=== PATIENT | female | born 1965 | race Caucasian/White ===

== ENCOUNTER 2016-05-19 08:16 | Day surgery (SDC) | payer OTHER ==
[2016-05-14 16:31] VITALS: BMI 28.3
[~2016-05-19 08:16] MED LIST: LACTATED RINGERS 1,000 ML IV SCH; LIDOCAINE 1% 20 ML VIAL (10MG/ML) FOR IV START INTRADERMA PRN
[2016-05-19 09:01] LABS: Glucose,Whole Blood 277 mg/dL (75-99)
[2016-05-19 09:04] VITALS: TEMP 97.6
[2016-05-19] MEDS ORDERED: PROPOFOL 10 MG/ML 20 ML VIAL IV ONE (09:07)
[2016-05-19 09:46] LABS: Glucose,Whole Blood 311 mg/dL (75-99)
[2016-05-19 09:47] VITALS: RESP 18
[2016-05-19] MEDS ORDERED: INSULIN LISPRO (humaLOG) 300 UNIT/3 ML VIAL SQ ONE (09:55)
[2016-05-19 10:21] VITALS: BP 132/68; PULSE 82
[2016-05-19 11:45] LABS: Anisocytosis Slight; Basophils % (A) 1 %; CH 32.6; CHCM 33.8; Eosinophils # (A) 0.1 k/uL (0-0.7); Eosinophils % (A) 2 %; HCT 24.8 % (34.0-46.0); HDW 3.64; HGB 8.3 gm/dL (11.4-16.0); Luc # (Auto) 0.05; Luc % (Auto) 2; Lymphocytes # (A) 0.5 k/uL (1.0-4.8); Lymphocytes % (A) 17 %; MCH 32.5 pg (25.0-35.0); MCHC 33.5 g/dL (31.0-37.0); Macrocytosis Slight; Mean Platelet Volume 8.3; Monocytes # (A) 0.2 k/uL (0-1.0); Monocytes % (A) 6 %; Neutrophils # (A) 2.2 k/uL (1.3-7.7); Neutrophils % (A) 72 %; Poikilocytosis Slight; RBC 2.55 m/uL (3.80-5.40); RDW 17.2 % (11.5-15.5); WBC 3.1 k/uL (3.8-10.6); WBC (Perox) 2.99
--- NOTE | 2016-05-19 20:06 | PCN ---
DATE OF PROCEDURE: 05/29/2016 PROCEDURE: Bone marrow aspiration biopsy. 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 ANESTHESIA: Local with IV sedation. PROCEDURE NOTE: The procedure was explained in detail to the patient in the office. She presented to the outpatient endoscopy suite where IV access and informed consent were obtained. She was then placed in the left lateral decubitus position. The area over both posterior iliac crest was cleaned and prepped with chlorhexidine and sterile draping. IV sedation was initiated. Local anesthesia administered to the right posterior iliac crest with lidocaine. A Jamshidi needle was then inserted and bone marrow aspirate and biopsy obtained. On withdrawal of the needle, hemostasis was easily achieved. Blood loss was minimal and recovery from sedation was satisfactory. She appeared to have tolerated the procedure well without any obvious complications.
[2016-05-20 09:15] LABS: Bone Marrow Cell Count Performed
== END 2016-05-19 10:36 | disposition home or self-care (01) ==
LOC: OR 08:16
PROVIDERS: ATTEND Internal Medicine Hematology & Oncology
DX: D61.818 Other pancytopenia (principal); D72.810 Lymphocytopenia; D69.6 Thrombocytopenia, unspecified; D70.4 Cyclic neutropenia; D64.4 Congenital dyserythropoietic anemia; I12.0 Hypertensive chronic kidney disease with stage 5 chronic kidney disease or end stage renal disease; N18.6 End stage renal disease; E78.5 Hyperlipidemia, unspecified; E11.9 Type 2 diabetes mellitus without complications; K21.9 Gastro-esophageal reflux disease without esophagitis; Z79.4 Long term (current) use of insulin; Z79.899 Other long term (current) drug therapy; Z88.1 Allergy status to other antibiotic agents; Z91.041 Radiographic dye allergy status
CPT/HCPCS: 81025; 84132; 85025; 38221; J2704; G0364; 99153

== ENCOUNTER 2016-05-28 01:52 | Emergency (ER) | payer OTHER ==
[2016-05-28 01:58] VITALS: TEMP 100.3
[2016-05-28] MEDS ORDERED: ACETAMINOPHEN TAB 500 MG TAB PO STA (02:19)
[2016-05-28] MEDS ORDERED: CHLORPHEN-HYDROcod 8-10mg/5ml 5 ML ORAL.SYRG PO STA (02:19)
[2016-05-28] MEDS ORDERED: IPRATROPIUM-ALBUTEROL 3 ML NEB INHALATION STA (02:57)
--- NOTE | 2016-05-28 02:59 | ED ---
URI HPI - General Chief Complaint: Upper Respiratory Infection Stated Complaint: cough,MARILIN Time Seen by Provider: 05/28/16 02:15 Source: patient, RN notes reviewed Mode of arrival: ambulatory Limitations: no limitations - History of Present Illness Initial Comments: 50-year-old female presents emergency Department chief complaint cough and congestion 4 days. Patient states that cough is slightly productive. Patient states that she has had multiple sick exposures at dialysis. Patient states that she's had low-grade fever at home has not taken any medication for it. Patient denies any headache, dizziness, neck stiffness. Denies any sore throat and ear pain. Patient's states that she is nonsmoker has no known lung disease. Patient states that she did have a flu shot this year. - Related Data Home Medications Medication Instructions Recorded Confirmed Atorvastatin [Lipitor] 40 mg PO HS 09/14/15 05/28/16 Cyclobenzaprine [Flexeril] 5 mg PO HS 09/14/15 05/28/16 Magnesium Gluconate [Magonate] 500 mg PO BID 09/14/15 05/28/16 Omeprazole [PriLOSEC] 20 mg PO DAILY 09/14/15 05/28/16 Sulfacetamide 10% Ophth Soln 1 - 2 drop BOTH EYES BID PRN 09/14/15 05/28/16 [Bleph-10] Calcium Carbonate [Tums] 750 mg PO AC-TID 10/29/15 05/28/16 Insulin Aspart [NovoLOG] See Protocol SQ ACHS 10/29/15 05/28/16 Furosemide [Lasix] 40 mg PO BID 03/12/16 05/28/16 Lidocaine 4% Cream [Lmx 4] 1 each TOPICAL WEEKLY 03/12/16 05/28/16 cloNIDine HCL [Catapres] 0.3 mg PO TID 03/12/16 05/28/16 traMADol HCl [Ultram] 50 mg PO TID PRN 03/12/16 05/28/16 Insulin Glargine [Lantus] 70 unit SQ QAM 04/18/16 05/28/16 Calcitriol [Rocaltrol] 0.25 mcg PO WEEKLY 05/14/16 05/28/16 Calcium Acetate [Phoslo] 1,334 mg PO ONCE PRN 05/14/16 05/28/16 Calcium Acetate [Phoslo] 667 mg PO TID 05/14/16 05/28/16 Ergocalciferol (Vitamin D2) 50,000 unit PO SUTUTH 05/14/16 05/28/16 [Drisdol] Iron Infusion 1 dose IV WEEKLY PRN 05/14/16 05/28/16 Prochlorperazine [Compazine] 5 mg PO BID PRN 05/14/16 05/28/16 Prorenal Vitamin 1 tab PO DAILY 05/14/16 05/28/16 amLODIPine [Norvasc] 10 mg PO QAM 05/14/16 05/28/16 Previous Rx's Medication Instructions Recorded Sodium Bicarbonate Tab 650 mg PO BID #60 tab 09/20/15 hydrALAZINE HCL [Apresoline] 50 mg PO TID #90 tab 09/20/15 Albuterol Sulfate [Proair Hfa] 1 - 2 puff INHALATION Q4HR PRN #1 05/28/16 inhaler Azithromycin [Zithromax Z-pack] 0 mg PO DIRECTED #1 pack 05/28/16 Promethaz-Cod 6.25-10 mg/5 ml 5 ml PO Q6HR PRN #120 ml 05/28/16 [Phenergan with Codeine] Allergies Allergy/AdvReac Type Severity Reaction Status Date / Time ciprofloxacin [From Cipro] Allergy AFFECTED Verified 05/19/16 08:39 EYESIGHT ciprofloxacin HCl Allergy AFFECTED Verified 05/19/16 08:39 [From Cipro] EYESIGHT Iodinated Contrast Media - Allergy RENAL Verified 05/19/16 08:39 Oral and FAILURE Review of Systems ROS Statement: Those systems with pertinent positive or pertinent negative responses have been documented in the HPI. ROS Other: All systems not noted in ROS Statement are negative. Past Medical History Past Medical History: Diabetes Mellitus, Hyperlipidemia, Hypertension, Renal Disease Additional Past Medical History / Comment(s): Hypertriglyceridemia-induced acute pancreatitis, necrotizing pancreatitis-sent to [facility], hemodialysis for acute kidney injury 2 months in 2009 after pancreatic surgery, chronic kidney disease, IDDM type II, acute blood loss anemia, R great toe infection-healed, carter's palsey x2, past L leg fx. Hemodialysis on ,, for 4 Hrs. History of Any Multi-Drug Resistant Organisms: None Reported Past Surgical History: Uterine Ablation Additional Past Surgical History / Comment(s): pancreatic resection at [facility] 2009, bone marrow biopsy -negative, D&C,. dialysis chest port removal - November 2015. Left arm shunt placement for dialysis - December 2015 Past Anesthesia/Blood Transfusion Reactions: No Reported Reaction Additional Past Anesthesia/Blood Transfusion Reaction / Comment(s): Pt has received blood without reaction. Past Psychological History: No Psychological Hx Reported Additional Psychological History / Comment(s): Pt resides with spouse and 1 adult manish. She is independent. She uses no assistive device. She drives. Smoking Status: Never smoker Past Alcohol Use History: None Reported Additional Past Alcohol Use History / Comment(s): Patient is a lifelong nonsmoker. She denies any medical marijuana, marijuana, street drug use. She drinks alcohol on a very rare basis. She lives at home with her and 21- year-old daughter. There is a cat and a dog in the home. 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 Past Drug Use History: None Reported - Past Family History Brother(s) Family Medical History: No Reported History Mother Family Medical History: Cancer, Diabetes Mellitus Additional Family Medical History / Comment(s): Mother of throat cancer at the age of 63 yrs. She was a smoker. Father Family Medical History: Coronary Artery Disease (CAD), Hyperlipidemia, Hypertension Additional Family Medical History / Comment(s): Father is 70 yrs old. General Exam Limitations: no limitations General appearance: alert, in no apparent distress Head exam: Present: atraumatic, normocephalic, normal inspection Eye exam: Present: normal appearance, PERRL, EOMI. Absent: scleral icterus, conjunctival injection, periorbital swelling ENT exam: Present: normal exam, normal oropharynx, mucous membranes moist, TM's normal bilaterally, normal external ear exam Neck exam: Present: normal inspection, full ROM. Absent: tenderness, meningismus, lymphadenopathy Respiratory exam: Present: wheezes. Absent: normal lung sounds bilaterally, respiratory distress, rales, rhonchi, stridor Cardiovascular Exam: Present: normal rhythm, tachycardia, normal heart sounds. Absent: systolic murmur, diastolic murmur, rubs, gallop, clicks Neurological exam: Present: alert Skin exam: Present: warm, dry, intact, normal color. Absent: rash Course Vital Signs 01/18/17 01/18/17 01/18/17 01:55 03:03 03:08 Temperature 100.3 F H Pulse Rate 113 H 100 100 Respiratory 18 Rate Blood Pressure 202/87 O2 Sat by Pulse 92 L Oximetry Medical Decision Making - Medical Decision Making 42-year-old female presented emergency Department chief complaint of cough and congestion. Patient chest x-ray shows no acute infiltrate though she does have a low-grade temp and some rhonchi noted. Patient we treated for acute bronchitis this time with azithromycin. She was discharged with Pro Air inhaler and cough medicine. Return parameters were discussed. - Lab Data Lab Results 05/28/16 Range/Units 02:35 Influenza Type A RNA Not Detected (Not Detectd) Influenza Type B (PCR) Not Detected (Not Detectd) Disposition Clinical Impression: Bronchitis, Fever Disposition: HOME SELF-CARE Condition: Stable Instructions: Acute Bronchitis (ED) Additional Instructions: Please return to the Emergency Department if symptoms worsen or any other concerns. Prescriptions: Albuterol Sulfate [Proair Hfa] 1 - 2 puff INHALATION Q4HR PRN #1 inhaler PRN Reason: difficulty in breathing Azithromycin [Zithromax Z-pack] 0 mg PO DIRECTED #1 pack Promethaz-Cod 6.25-10 mg/5 ml [Phenergan with Codeine] 5 ml PO Q6HR PRN #120 ml PRN Reason: Cough Time of Disposition: 03:25
--- NOTE | 2016-05-28 03:02 | XR ---
EXAMINATION TYPE: XR chest 2V DATE OF EXAM: 05/28/2016 2:27 AM COMPARISON: 10/29/2015 HISTORY: Cough and congestion TECHNIQUE: Frontal and lateral views of the chest are obtained. FINDINGS: There is mild pulmonary vascular congestion. No definite focal pneumonia is noted. . The cardiac silhouette size is within normal limits. The osseous structures are intact. IMPRESSION: 1. Mild pulmonary vascular congestion. 2. No focal pneumonia.
[2016-05-28] MEDS ORDERED: AZITHROMYCIN 250 MG TAB PO STA (03:23)
[2016-05-28 04:56] VITALS: BP 208/80; PULSE 70; RESP 16
== END 2016-05-28 03:36 | disposition home or self-care (01) ==
LOC: EC 01:52
DX: J20.9 Acute bronchitis, unspecified (principal); I12.0 Hypertensive chronic kidney disease with stage 5 chronic kidney disease or end stage renal disease; E11.22 Type 2 diabetes mellitus with diabetic chronic kidney disease; N18.6 End stage renal disease; Z99.2 Dependence on renal dialysis; E78.5 Hyperlipidemia, unspecified; E78.1 Pure hyperglyceridemia; Z79.4 Long term (current) use of insulin; Z79.899 Other long term (current) drug therapy; Z88.1 Allergy status to other antibiotic agents; Z91.041 Radiographic dye allergy status
CPT/HCPCS: 71020; 87502; 94640; 99284

== ENCOUNTER 2016-06-05 09:46 | Inpatient (IN) | payer OTHER ==
[2016-06-05] MEDS ORDERED: hydrALAZINE HCL 20 MG/ML 1 ML VIAL IVP STA ×2 (09:56→13:22)
--- NOTE | 2016-06-05 09:59 | ED ---
General Adult HPI - General Stated complaint: MARILIN Time Seen by Provider: 06/05/16 09:50 Source: RN notes reviewed - History of Present Illness Initial comments: This is a 50-year-old female who has past medical history significant for renal failure and is on hemodialysis. Patient states she went to hemodialysis this morning and because her heart rate was too fast and blood pressure was elevated they sent into the emergency department without being dialyzed. Patient was found to have an increased potassium some heart failure and was anemic and since that facility does not have any dialysis capabilities is sent the patient to me. Patient does complain of feeling short of breath and coughing all night long. Patient denies any chest pain or palpitations. Patient denies abdominal pain patient denies nausea vomiting diarrhea. Patient denies any recent fever or chills. According to the other ER they did give the patient insulin and D50 they also gave the patient some Kayexalate. The ER doctor also stated that the patient infiltrates on x-ray. He said he started the patient on antibiotics - Related Data Home Medications Medication Instructions Recorded Confirmed Atorvastatin [Lipitor] 40 mg PO HS 09/14/15 06/05/16 Cyclobenzaprine [Flexeril] 5 mg PO HS 09/14/15 06/05/16 Magnesium Gluconate [Magonate] 500 mg PO BID 09/14/15 06/05/16 Omeprazole [PriLOSEC] 20 mg PO DAILY 09/14/15 06/05/16 Sulfacetamide 10% Ophth Soln 1 - 2 drop BOTH EYES BID PRN 09/14/15 06/05/16 [Bleph-10] Calcium Carbonate [Tums] 1,500 mg PO AC-TID 10/29/15 06/05/16 Furosemide [Lasix] 40 mg PO BID 03/12/16 06/05/16 Lidocaine 4% Cream [Lmx 4] 1 applic TOPICAL TUTHSA 03/12/16 06/05/16 cloNIDine HCL [Catapres] 0.3 mg PO TID 03/12/16 06/05/16 traMADol HCl [Ultram] 50 mg PO TID PRN 03/12/16 06/05/16 Insulin Glargine [Lantus] 70 unit SQ QAM 04/18/16 06/05/16 Calcitriol [Rocaltrol] 0.25 mcg PO WEEKLY 05/14/16 06/05/16 Calcium Acetate [Phoslo] 1,334 mg PO DIRECTED PRN 05/14/16 06/05/16 Calcium Acetate [Phoslo] 667 mg PO TID 05/14/16 06/05/16 Ergocalciferol (Vitamin D2) 50,000 unit PO SUTUTH 05/14/16 06/05/16 [Drisdol] Iron Infusion 1 dose IV WEEKLY PRN 05/14/16 06/05/16 Prochlorperazine [Compazine] 5 mg PO BID PRN 05/14/16 06/05/16 Prorenal Vitamin 1 tab PO DAILY 05/14/16 06/05/16 amLODIPine [Norvasc] 10 mg PO QAM 05/14/16 06/05/16 Albuterol Sulfate [Proair Hfa] 2 puff INHALATION RT-Q4H PRN 06/05/16 06/05/16 Insulin NPL/Insulin Lispro 16 unit SQ AC-TID 06/05/16 06/05/16 [humaLOG MIX 75-25 VIAL] Previous Rx's Medication Instructions Recorded Sodium Bicarbonate Tab 650 mg PO BID #60 tab 09/20/15 hydrALAZINE HCL [Apresoline] 50 mg PO TID #90 tab 09/20/15 Allergies Allergy/AdvReac Type Severity Reaction Status Date / Time ciprofloxacin [From Cipro] Allergy AFFECTED Verified 06/05/16 10:51 EYESIGHT ciprofloxacin HCl Allergy AFFECTED Verified 06/05/16 10:51 [From Cipro] EYESIGHT Iodinated Contrast Media - Allergy RENAL Verified 06/05/16 10:51 Oral and FAILURE Review of Systems ROS Statement: Those systems with pertinent positive or pertinent negative responses have been documented in the HPI. ROS Other: All systems not noted in ROS Statement are negative. Past Medical History Past Medical History: Diabetes Mellitus, Hyperlipidemia, Hypertension, Renal Disease Additional Past Medical History / Comment(s): Hypertriglyceridemia-induced acute pancreatitis, necrotizing pancreatitis-sent to [facility], hemodialysis for acute kidney injury 2 months in 2009 after pancreatic surgery, chronic kidney disease, IDDM type II, acute blood loss anemia, R great toe infection-healed, carter's palsey x2, past L leg fx. Hemodialysis on , for 4 Hrs. History of Any Multi-Drug Resistant Organisms: None Reported Past Surgical History: Uterine Ablation Additional Past Surgical History / Comment(s): pancreatic resection at [facility] 2009, bone marrow biopsy -negative, D&C,. dialysis chest port removal - November 2015. Left arm shunt placement for dialysis - December 2015 Past Anesthesia/Blood Transfusion Reactions: No Reported Reaction Additional Past Anesthesia/Blood Transfusion Reaction / Comment(s): Pt has received blood without reaction. Past Psychological History: No Psychological Hx Reported Additional Psychological History / Comment(s): Pt resides with spouse and 1 adult manish. She is independent. She uses no assistive device. She drives. Smoking Status: Never smoker Past Alcohol Use History: None Reported Additional Past Alcohol Use History / Comment(s): Patient is a lifelong nonsmoker. She denies any medical marijuana, marijuana, street drug use. She drinks alcohol on a very rare basis. She lives at home with her and 21- year-old daughter. There is a cat and a dog in the home. 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 Past Drug Use History: None Reported - Past Family History Brother(s) Family Medical History: No Reported History Mother Family Medical History: Cancer, Diabetes Mellitus Additional Family Medical History / Comment(s): Mother of throat cancer at the age of 63 yrs. She was a smoker. Father Family Medical History: Coronary Artery Disease (CAD), Hyperlipidemia, Hypertension Additional Family Medical History / Comment(s): Father is 70 yrs old. General Exam - General Exam Comments Initial Comments: GENERAL: Patient is well-developed and well-nourished. Patient is nontoxic and well- hydrated and is in no acute distress. ENT: Neck is soft and supple. No significant lymphadenopathy is noted. Oropharynx is clear. Moist mucous membranes. Neck has full range of motion without eliciting any pain. EYES: The sclera were anicteric and conjunctiva were pink and moist. Extraocular movements were intact and pupils were equal round and reactive to light. Eyelids were unremarkable. PULMONARY: He has crackles bilateral bases CARDIOVASCULAR: Patient is tachycardic ABDOMEN: Soft and nontender with normal bowel sounds. No palpable organomegaly was noted. There is no palpable pulsatile mass. SKIN: Skin is clear with no lesions or rashes and otherwise unremarkable. NEUROLOGIC: Patient is alert and oriented x3. Cranial nerves II through XII are grossly intact. Motor and sensory are also intact. Normal speech, volume and content. Symmetrical smile. MUSCULOSKELETAL: Normal extremities with adequate strength and full range of motion. LYMPHATICS: No significant lymphadenopathy is noted PSYCHIATRIC: Normal psychiatric evaluation. Course Vital Signs 06/05/16 06/05/16 10:04 10:10 Temperature 99.0 F Pulse Rate 99 Respiratory 20 20 Rate Blood Pressure 201/90 O2 Sat by Pulse 94 L Oximetry Medical Decision Making - Medical Decision Making Patient has pulmonary edema and did not get dialysis this morning also her potassium was 7.1 and hemoglobin was 7.3. I spoke with Dr. Jones he is sitting up arrangements for the patient to get dialyzed. I spoke with Dr. Bragg he accepted admission I wrote admission orders. - Lab Data Result diagrams: 06/05/16 10:18 06/05/16 10:18 Lab Results 06/05/16 06/05/16 06/05/16 Range/Units 10:18 10:18 10:18 WBC 4.1 (3.8-10.6) k/uL RBC 2.20 L (3.80-5.40) m/uL Hgb 7.3 L (11.4-16.0) gm/dL Hct 21.5 L (34.0-46.0) % MCV 97.7 (80.0-100.0) fL MCH 33.0 (25.0-35.0) pg MCHC 33.7 (31.0-37.0) g/dL RDW 21.3 H (11.5-15.5) % Plt Count 151 (150-450) k/uL Neutrophils % 89 % Lymphocytes % 6 % Monocytes % 3 % Eosinophils % 1 % Basophils % 1 % Neutrophils # 3.6 (1.3-7.7) k/uL Lymphocytes # 0.3 L (1.0-4.8) k/uL Monocytes # 0.1 (0-1.0) k/uL Eosinophils # 0.0 (0-0.7) k/uL Basophils # 0.0 (0-0.2) k/uL Hypochromasia Slight Poikilocytosis Moderate Anisocytosis Moderate Macrocytosis Slight Sodium 135 L (137-145) mmol/L Potassium 7.1 H* (3.5-5.1) mmol/L Chloride 98 (98-107) mmol/L Carbon Dioxide 23 (22-30) mmol/L Anion Gap 14 mmol/L BUN 49 H (7-17) mg/dL Creatinine 5.78 H* (0.52-1.04) mg/dL Est GFR (MDRD) Af Amer 9 (>60 ml/min/1.73 sqM) Est GFR (MDRD) Non-Af 8 (>60 ml/min/1.73 sqM) Glucose 253 H (74-99) mg/dL Plasma Lactic Acid Micha 1.4 (0.7-2.0) mmol/L Calcium 8.6 (8.4-10.2) mg/dL Total Bilirubin 1.1 (0.2-1.3) mg/dL AST 87 H (14-36) U/L ALT 140 H (9-52) U/L Alkaline Phosphatase 206 H (38-126) U/L Total Protein 6.8 (6.3-8.2) g/dL Albumin 3.8 (3.5-5.0) g/dL Disposition Clinical Impression: Pulmonary edema, Admission for dialysis, Anemia Disposition: ADMITTED IP TO THIS HOSP Referrals: David Bragg MD [Primary Care Provider] - 1-2 days Time of Disposition: 12:04
[2016-06-05 10:30] LABS: Anisocytosis Moderate; Basophils % (A) 1 %; CH 32.4; CHCM 33.4; Eosinophils % (A) 1 %; HCT 21.5 % (34.0-46.0); HDW 4.32; HGB 7.3 gm/dL (11.4-16.0); Hypochromasia Slight; Luc # (Auto) 0.04; Luc % (Auto) 1; Lymphocytes # (A) 0.3 k/uL (1.0-4.8); Lymphocytes % (A) 6 %; MCHC 33.7 g/dL (31.0-37.0); MCV 97.7 fL (80.0-100.0); Macrocytosis Slight; Mean Platelet Volume 7.3; Monocytes # (A) 0.1 k/uL (0-1.0); Monocytes % (A) 3 %; Neutrophils # (A) 3.6 k/uL (1.3-7.7); Neutrophils % (A) 89 %; Poikilocytosis Moderate; RDW 21.3 % (11.5-15.5); WBC 4.1 k/uL (3.8-10.6); WBC (Perox) 4.32
[2016-06-05 10:43] LABS: Calcium 8.6 mg/dL (8.4-10.2); Total Bilirubin 1.1 mg/dL (0.2-1.3); Total Protein 6.8 g/dL (6.3-8.2)
[2016-06-05 10:55] LABS: Potassium 7.1 mmol/L (3.5-5.1)
[2016-06-05 15:22] LABS: Glucose,Whole Blood 160 mg/dL (75-99)
[2016-06-05] MEDS ORDERED: hydrALAZINE HCL 20 MG/ML 1 ML VIAL IVP ONE (15:29)
[2016-06-05] MEDS ORDERED: PROCHLORPERAZINE 5 MG TAB PO PRN (16:28)
[2016-06-05] MEDS ORDERED: IRON INFUSION IV PRN (16:28)
[2016-06-05] MEDS ORDERED: SULFACETAMIDE SOD 10% OPHTH DROPS 15 ML BTL BOTH EYES PRN (16:28)
[2016-06-05] MEDS ORDERED: ALBUTEROL NEBULIZED 2.5 MG/3 ML INHALATION PRN (16:28)
[2016-06-05 16:45] LABS: Glucose,Whole Blood 190 mg/dL (75-99)
[2016-06-05] MEDS: traMADol 50 MG TAB PO PRN (17:30)
[2016-06-05] MEDS ORDERED: cefTRIAXone 1,000 MG VIAL (IM USE) IM SCH (18:30)
[2016-06-05] MEDS: INSULIN NPL/INSULIN LISPRO 100 UNIT/ML 10 ML VIAL (Humalog 75/25) SQ SCH ×2 (18:37→20:45)
[2016-06-05] MEDS: CALCIUM CARBONATE 500 MG CHEWABLE PO SCH (18:39)
[2016-06-05] MEDS: CALCIUM ACETATE 667 MG CAP PO SCH (18:39)
[2016-06-05] MEDS: LIDOCAINE 4% CREAM 5 GM TUBE TOPICAL SCH (18:40)
[2016-06-05] MEDS ORDERED: GELATIN SPONGE,ABSORB (SMALL) 1 EACH SPONGE ONE (20:00)
[2016-06-05] MEDS: HYDROmorphone 1 MG/ML 1 ML SYRINGE IVP PRN ×2 (20:15→23:44)
[2016-06-05] MEDS: SODIUM BICARBONATE TAB 650 MG TAB PO SCH (20:18)
[2016-06-05] MEDS: CYCLOBENZAPRINE 5 MG TAB PO SCH (20:19)
[2016-06-05] MEDS: hydrALAZINE HCL 50 MG TAB PO SCH (20:19)
[2016-06-05] MEDS: ATORVASTATIN 40 MG TAB PO SCH (20:19)
[2016-06-05] MEDS: cloNIDine HCL 0.1 MG TAB PO SCH (20:19)
[2016-06-05 20:52] LABS: Glucose,Whole Blood 287 mg/dL (75-99)
[2016-06-05] MEDS ORDERED: MAGNESIUM OXIDE 250 MG TAB PO SCH (21:00)
--- NOTE | 2016-06-05 21:44 | HP ---
DATE OF ADMISSION: 06/05/2015 CHIEF COMPLAINT: A 50-year-old white female with past medical history renal failure on hemodialysis, her heart rate was too fast. Her blood pressure was elevated and they sent her to the emergency room without being dialyzed and hypertension acceleration in the 220 range. She has had bloody hemoptysis since then and increased potassium and some heart failure versus pneumonia and was anemic with a hemoglobin in mid 7s. She has been short of breath, coughing up blood all night. She had CT scan of chest up at [place] and we are trying to get the report at this time. She was given some Kayexalate and insulin and D50 to get her potassium down. Started her on antibiotics for possible pneumonia. Home medications include: 1. Lipitor 40 daily. 2. Flexeril 5 mg q.h.s. 3. Magnesium gluconate 500 mg b.i.d. 4. Prilosec 20 daily. 5. Sulfacetamide ophthalmologic solution 1 to 2 drops both eyes b.i.d. 6. ( ) 1500 a.c. t.i.d. 7. Lasix 40 mg b.i.d. 8. Clonidine 0.3 mg t.i.d. 9. Tramadol 50 mg t.i.d. 10. Lantus 70 units q.a.m. 11. Rocaltrol 0.25 mcg weekly. 12. PhosLo 667 mg t.i.d. to 1334 mg p.r.n. 13. Vitamin D 50,000 weekly. 14. Iron infusion weekly. 15. Compazine 5 mg b.i.d. 16. Prerenal vitamins 1 tablet daily. 17. Amlodipine 10 mg daily. 18. Albuterol 2 puffs q.4 hours p.r.n. 19. Humalog mix 15 units subcu a.c. t.i.d. ALLERGIES: CIPRO. IODINE. REVIEW OF SYSTEMS: Please see HPI. 14 point review of systems negative except for as mentioned above. Past medical history is renal failure. End-stage recent dialysis in the past 6 months, diabetes mellitus, dyslipidemia, hypertension, necrotizing pancreatitis history, Hoffman's palsy x2 and insulin-dependent diabetes mellitus, type II, ( ) right great toe infection, uterine ablation and bone marrow biopsies. SOCIAL HISTORY: Nonsmoker. No alcohol. Lifelong nonsmoker. FAMILY HISTORY: Negative. Mother has cancer, diabetes mellitus. Mother of throat at age 63 smoker. Father had coronary disease, dyslipidemia, hypertension. PHYSICAL EXAMINATION: Well-developed, well-nourished white female in no acute distress. ENT: Extraocular movements intact. ( ) Within normal limits. Ophthalmologic: Pupils equal, round, react to light and accommodation. PULMONARY: Has crackles at the bases. CARDIOVASCULAR: Tachycardic. ABDOMEN: Soft, nontender. SKIN: Warm and dry. NEUROLOGIC: Cranial nerves are intact. MUSCULOSKELETAL: Range of motion fair. LYMPHS: There is no significant lymphadenopathy. PSYCHIATRIC: Fair mood and affect. Temperature is 99, pulse rate is in the high 90s, respiratory rate 18 to 20, 94% on room air. Hemoglobin 7.3, ( ) is 135, potassium of 7.1, BUN 49, creatinine 5.78, sodium 135, potassium 7.1. ASSESSMENT: 1. Acute pulmonary ( ) on admission for dialysis. 2. Severe hyperkalemia secondary to renal failure. 3. Severe anemia secondary to renal failure. 4. Possible pneumonia versus congestive heart failure due to fluid overload. 5. Hemoptysis, unclear etiology. We will do PT, INR, will do BNP to rule out heart failure. Dr. Bobby will be consulted for pulmonary care. Empiric antibiotics will be started, potassium will be addressed by renal physician and in the ER ( ) to be monitored. Please see further orders on the chart.
[2016-06-05] MEDS: SODIUM FERRIC GLUCONAT-SUCROSE 125 MG in SODIUM CHLORIDE 0.9% 100 ML IVPB SCH (22:15)
[2016-06-05] MEDS: AZITHROMYCIN 500 MG in SODIUM CHLORIDE 0.9% 250 ML IVPB SCH (23:35)
[2016-06-06] MEDS: PROMETHAZINE 6.25MG/5ML 147.5 MG/118 ML BOTTLE PO PRN ×4 (01:20→23:02)
[2016-06-06] MEDS: HYDROmorphone 1 MG/ML 1 ML SYRINGE IVP PRN ×4 (04:21→22:34)
[2016-06-06] MEDS: CALCIUM CARBONATE 500 MG CHEWABLE PO SCH ×3 (06:26→17:31)
[2016-06-06] MEDS: CALCIUM ACETATE 667 MG CAP PO SCH ×3 (06:31→17:32)
[2016-06-06] MEDS: PANTOPRAZOLE 40 MG TABLET PO SCH (06:31)
[2016-06-06 06:53] LABS: Anisocytosis Moderate; Basophils % (A) 1 %; CHCM 32.6; Eosinophils % (A) 0 %; Hypochromasia Moderate; Luc # (Auto) 0.03; Luc % (Auto) 1; Lymphocytes # (A) 0.3 k/uL (1.0-4.8); Lymphocytes % (A) 8 %; MCH 33.3 pg (25.0-35.0); MCHC 33.6 g/dL (31.0-37.0); MCV 99.3 fL (80.0-100.0); Macrocytosis Slight; Mean Platelet Volume 7.7; Monocytes # (A) 0.2 k/uL (0-1.0); Monocytes % (A) 6 %; Neutrophils % (A) 84 %; Poikilocytosis Moderate; RBC 2.01 m/uL (3.80-5.40); WBC 3.6 k/uL (3.8-10.6)
[2016-06-06 07:09] LABS: Calcium 8.3 mg/dL (8.4-10.2); Potassium 5.6 mmol/L (3.5-5.1); Total Bilirubin 1.2 mg/dL (0.2-1.3); Total Protein 6.3 g/dL (6.3-8.2)
[2016-06-06] MEDS: INSULIN NPL/INSULIN LISPRO 100 UNIT/ML 10 ML VIAL (Humalog 75/25) SQ SCH ×3 (07:26→17:33)
[2016-06-06 07:37] LABS: HCT 19.9 % (34.0-46.0); HGB 6.7 gm/dL (11.4-16.0)
--- NOTE | 2016-06-06 08:05 | P.NPCON ---
History of Present Illness - Reason for Consult end stage renal disease - History of Present Illness Reason for consultation: End-stage renal disease History of present illness: Patient is a 50-year-old female seen in renal consultation for end- stage renal disease. She is maintained on hemodialysis on a Thursday schedule. Patient presented to the hospital after she noticed increase in her heart rate as well as systolic blood pressure greater than 200 when she was at the dialysis center. She was subsequently sent to the hospital for further care. Her potassium was elevated at 7.1 and she did undergo urgent hemodialysis last night. Potassium this morning is 5.6. She's also been having symptoms of upper respiratory infection and has just completed course of Z-Travis earlier this week. She also noticed hemoptysis which is now improved. She denies any chest pain or shortness of breath. She was also noted to have anemia for which she has undergone bone marrow biopsy earlier this month. She' s been receiving multiple packed red blood cell transfusions as an outpatient. Her hemoglobin this morning is again 6.7. Appetite is fair. Denies vomiting. Does have intermittent diarrhea. Denies any melena or hematochezia. Did have some epistaxis. Vital signs are stable. General: The patient appeared well nourished and normally developed. HEENT: Head exam is unremarkable. Neck is without jugular venous distension. LUNGS: Lungs are clear to auscultation and percussion. Breath sounds decreased. HEART: Rate and Rhythm are regular. First and second heart sounds normal. No murmurs, rubs or gallops. ABDOMEN: Abdominal exam reveals normal bowel sounds. Non-tender and non- distended. No evidence of peritonitis. EXTREMITITES: No clubbing, cyanosis, or edema. Past Medical History Past Medical History: Diabetes Mellitus, Hyperlipidemia, Hypertension, Renal Disease Additional Past Medical History / Comment(s): Recent bronchitis-completed ABX, hypertriglyceridemia-induced acute pancreatitis, necrotizing pancreatitis-sent [facility], hemodialysis for acute kidney injury 2 months in 2009 after pancreatic surgery, 11/2015 diagnosed with chronic kidney disease-hemodialysis //, IDDM type II, chronic anemia, occasional back pain, carter's palsey x2, past L leg fx. History of Any Multi-Drug Resistant Organisms: None Reported Past Surgical History: Uterine Ablation Additional Past Surgical History / Comment(s): pancreatic resection at [facility] 2009, bone marrow biopsies-last one 05/19/16,. dialysis chest port x 2 with removals, Left arm shunt placement for dialysis - December 2015 Past Anesthesia/Blood Transfusion Reactions: No Reported Reaction Additional Past Anesthesia/Blood Transfusion Reaction / Comment(s): Pt has received blood transfusions without reaction-last transfusion 06/04/16. Past Psychological History: No Psychological Hx Reported Additional Psychological History / Comment(s): Pt resides with spouse and 1 adult manish. She is independent. She uses no assistive device. She drives. Smoking Status: Never smoker Past Alcohol Use History: None Reported Additional Past Alcohol Use History / Comment(s): Patient is a lifelong nonsmoker. She denies any medical marijuana, marijuana, street drug use. She drinks alcohol on a very rare basis. She lives at home with her and 21- year-old daughter. There is a cat in the home. 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 Past Drug Use History: None Reported - Past Family History Brother(s) Family Medical History: No Reported History Mother Family Medical History: Cancer, Diabetes Mellitus Additional Family Medical History / Comment(s): Mother of throat cancer at the age of 63 yrs. She was a smoker. Father Family Medical History: Coronary Artery Disease (CAD), Hyperlipidemia, Hypertension Additional Family Medical History / Comment(s): Father is 70 yrs old. Medications and Allergies Home Medications Medication Instructions Recorded Confirmed Type Atorvastatin [Lipitor] 40 mg PO HS 09/14/15 06/05/16 History Cyclobenzaprine [Flexeril] 5 mg PO HS 09/14/15 06/05/16 History Magnesium Gluconate [Magonate] 500 mg PO BID 09/14/15 06/05/16 History Omeprazole [PriLOSEC] 20 mg PO DAILY 09/14/15 06/05/16 History Sulfacetamide 10% Ophth Soln 1 - 2 drop BOTH EYES BID PRN 09/14/15 06/05/16 History [Bleph-10] Calcium Carbonate [Tums] 1,500 mg PO AC-TID 10/29/15 06/05/16 History Furosemide [Lasix] 40 mg PO BID 03/12/16 06/05/16 History Lidocaine 4% Cream [Lmx 4] 1 applic TOPICAL TUTHSA 03/12/16 06/05/16 History cloNIDine HCL [Catapres] 0.3 mg PO TID 03/12/16 06/05/16 History traMADol HCl [Ultram] 50 mg PO TID PRN 03/12/16 06/05/16 History Insulin Glargine [Lantus] 70 unit SQ QAM 04/18/16 06/05/16 History Calcitriol [Rocaltrol] 0.25 mcg PO WEEKLY 05/14/16 06/05/16 History Calcium Acetate [Phoslo] 1,334 mg PO DIRECTED PRN 05/14/16 06/05/16 History Calcium Acetate [Phoslo] 667 mg PO TID 05/14/16 06/05/16 History Ergocalciferol (Vitamin D2) 50,000 unit PO SUTUTH 05/14/16 06/05/16 History [Drisdol] Iron Infusion 1 dose IV WEEKLY PRN 05/14/16 06/05/16 History Prochlorperazine [Compazine] 5 mg PO BID PRN 05/14/16 06/05/16 History Prorenal Vitamin 1 tab PO DAILY 05/14/16 06/05/16 History amLODIPine [Norvasc] 10 mg PO QAM 05/14/16 06/05/16 History Albuterol Sulfate [Proair Hfa] 2 puff INHALATION RT-Q4H PRN 06/05/16 06/05/16 History Insulin NPL/Insulin Lispro 16 unit SQ AC-TID 06/05/16 06/05/16 History [humaLOG MIX 75-25 VIAL] Allergies Allergy/AdvReac Type Severity Reaction Status Date / Time ciprofloxacin [From Cipro] Allergy AFFECTED Verified 06/05/16 10:51 EYESIGHT ciprofloxacin HCl Allergy AFFECTED Verified 06/05/16 10:51 [From Cipro] EYESIGHT Iodinated Contrast Media - Allergy RENAL Verified 06/05/16 10:51 Oral and FAILURE Physical Exam Vitals: Vital Signs Temp Pulse Pulse Resp BP BP Pulse Ox 06/06/16 04:00 98 F 100 18 166/83 95 06/06/16 00:00 99.5 F 105 H 18 167/84 94 L 06/05/16 21:30 100.6 F H 06/05/16 20:00 99.1 F 111 H 18 147/72 98 06/05/16 16:00 98.4 F 169 H 20 216/81 97 06/05/16 15:59 98.6 F 108 H 24 198/87 96 06/05/16 14:26 105 H 20 195/88 95 Intake and Output 06/05/16 06/06/16 06/06/16 22:59 06:59 14:59 Intake Total 600 570 Output Total 0 100 Balance 600 470 Intake: IV 570 Azithromycin 500 mg In 250 Sodium Chloride 0.9% 250 ml @ 125 mls/hr IVPB DAILY@1900 [facility] Rx#: [id number] NS 120 Sodium Ferric Gluconat- 100 Sucrose 125 mg In Sodium Chloride 0.9% 100 ml @ 100 mls/hr IVPB DAILY@ 1800 [facility] Rx#:[id number] cefTRIAXone 1,000 mg In 100 Sodium Chloride 0.9% 50 ml @ 100 mls/hr IVPB Q24H [facility] Rx#:[id number] Oral 600 Output: Urine 0 0 Emesis 100 Other: Voiding Method Bedside Commode Bedside Commode # Voids 1 1 # Bowel Movements 1 Weight 76.5 kg 73.1 kg Results - Lab Results Most recent lab results Calcium 8.3 mg/dL (8.4-10.2) L 06/06/16 06:18 06/06/16 06:18 06/06/16 06:18 Assessment and Plan Plan: Assessment: #1. End-stage renal disease maintained on hemodialysis on a Thursday schedule. #2. Hyperkalemia secondary to chronic kidney disease as well as hyperglycemia. Questionable underlying GI bleed may also be a contributor factor. #3. Acute anemia. Hemoglobin 6.7 today. #4. Hypertension with chronic kidney disease. #5. Chronic kidney disease mineral bone disease. #6. Tachyarrhythmia. Possibly related to anemia. Plan: 1 unit packed red blood cell transfusion today. Hemodialysis tomorrow with goal 3 L ultrafiltration. Check phosphorus level. Check iron studies. Start Aranesp. Maintain PhosLo with meals. Nephrocaps daily. Await pulmonary and cardiology recommendations. Thank you for the consultation. I will continue to follow the patient with you during her hospital stay.
[2016-06-06 08:09] LABS: Glucose,Whole Blood 246 mg/dL (75-99)
[2016-06-06] MEDS: FUROSEMIDE 40 MG TAB PO SCH ×2 (08:58→15:45)
[2016-06-06] MEDS: SODIUM BICARBONATE TAB 650 MG TAB PO SCH ×2 (08:58→20:12)
[2016-06-06] MEDS: cloNIDine HCL 0.1 MG TAB PO SCH ×3 (08:58→23:02)
[2016-06-06] MEDS: amLODIPine 10 MG TAB PO SCH (08:58)
[2016-06-06] MEDS: hydrALAZINE HCL 50 MG TAB PO SCH ×3 (08:58→23:02)
[2016-06-06] MEDS ORDERED: CALCITRIOL 0.25 MCG CAP PO SCH (09:00)
[2016-06-06] MEDS ORDERED: DARBEPOETIN ALFA 40 MCG/0.4 ML SYRINGE SQ SCH (09:00)
[2016-06-06] MEDS: INSULIN GLARGINE 100 UNIT/ML 10 ML VIAL SQ SCH (09:52)
[2016-06-06 10:32] LABS: Phosphorous 5.2 mg/dL (2.5-4.5)
[2016-06-06 10:40] LABS: % Iron Saturation 31.1 % (20-50)
--- NOTE | 2016-06-06 11:35 | P.CRDCN ---
History of Present Illness Consult date: 06/06/16 Reason for Consult (text): accelerated HTN Chief complaint: shortness of breath and tachycardia History of present illness: This is a pleasant 50-year-old female patient with a known history of end-stage renal disease, on hemodialysis, hypertension, hyperlipidemia, diabetes. Recently began complaining of chest congestion and cough, was seen in the emergency department about a week ago and was put on oral antibiotics. Thursday evening, she began noticing blood in her sputum. She presented for hemodialysis on morning and was noted to be quite hypertensive and tachycardic with complaints of shortness of breath. Chest x-ray done at [facility] showed bilateral infiltrates. Laboratory values upon presentation to ER here showed potassium 7.1, BUN 49, creatinine 5.78 and hemoglobin 7.3. She was urgently dialyzed last evening with improvement in potassium, 5.6 this morning. She has been evaluated by nephrology who has ordered 1 unit of packed red blood cells for hemoglobin of 6.7. She will be dialyzed again tomorrow. Upon examination this morning, patient is sitting up at the edge of the bed. She verbalizes feeling much better today. She is breathing easier, having less palpitations and no longer coughing up any sputum. She denies any complaints of chest discomfort, dizziness or syncope. Past Medical History Past Medical History: Diabetes Mellitus, Hyperlipidemia, Hypertension, Renal Disease Additional Past Medical History / Comment(s): Recent bronchitis-completed ABX, hypertriglyceridemia-induced acute pancreatitis, necrotizing pancreatitis-sent to [facility], hemodialysis for acute kidney injury 2 months in 2009 after pancreatic surgery, 11/2015 diagnosed with chronic kidney disease-hemodialysis //, IDDM type II, chronic anemia, occasional back pain, carter's palsey x2, past L leg fx. History of Any Multi-Drug Resistant Organisms: None Reported Past Surgical History: Uterine Ablation Additional Past Surgical History / Comment(s): pancreatic resection at [facility] 2009, bone marrow biopsies-last one 05/19/16,. dialysis chest port x 2 with removals, Left arm shunt placement for dialysis - December 2015 Past Anesthesia/Blood Transfusion Reactions: No Reported Reaction Additional Past Anesthesia/Blood Transfusion Reaction / Comment(s): Pt has received blood transfusions without reaction-last transfusion 06/04/16. Past Psychological History: No Psychological Hx Reported Additional Psychological History / Comment(s): Pt resides with spouse and 1 adult manish. She is independent. She uses no assistive device. She drives. Smoking Status: Never smoker Past Alcohol Use History: None Reported Additional Past Alcohol Use History / Comment(s): Patient is a lifelong nonsmoker. She denies any medical marijuana, marijuana, street drug use. She drinks alcohol on a very rare basis. She lives at home with her and 21- year-old daughter. There is a cat in the home. 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 Past Drug Use History: None Reported - Past Family History Brother(s) Family Medical History: No Reported History Mother Family Medical History: Cancer, Diabetes Mellitus Additional Family Medical History / Comment(s): Mother of throat cancer at the age of 63 yrs. She was a smoker. Father Family Medical History: Coronary Artery Disease (CAD), Hyperlipidemia, Hypertension Additional Family Medical History / Comment(s): Father is 70 yrs old. Medications and Allergies Home Medications Medication Instructions Recorded Confirmed Type Atorvastatin [Lipitor] 40 mg PO HS 09/14/15 06/05/16 History Cyclobenzaprine [Flexeril] 5 mg PO HS 09/14/15 06/05/16 History Magnesium Gluconate [Magonate] 500 mg PO BID 09/14/15 06/05/16 History Omeprazole [PriLOSEC] 20 mg PO DAILY 09/14/15 06/05/16 History Sulfacetamide 10% Ophth Soln 1 - 2 drop BOTH EYES BID PRN 09/14/15 06/05/16 History [Bleph-10] Calcium Carbonate [Tums] 1,500 mg PO AC-TID 10/29/15 06/05/16 History Furosemide [Lasix] 40 mg PO BID 03/12/16 06/05/16 History Lidocaine 4% Cream [Lmx 4] 1 applic TOPICAL TUTHSA 03/12/16 06/05/16 History cloNIDine HCL [Catapres] 0.3 mg PO TID 03/12/16 06/05/16 History traMADol HCl [Ultram] 50 mg PO TID PRN 03/12/16 06/05/16 History Insulin Glargine [Lantus] 70 unit SQ QAM 04/18/16 06/05/16 History Calcitriol [Rocaltrol] 0.25 mcg PO WEEKLY 05/14/16 06/05/16 History Calcium Acetate [Phoslo] 1,334 mg PO DIRECTED PRN 05/14/16 06/05/16 History Calcium Acetate [Phoslo] 667 mg PO TID 05/14/16 06/05/16 History Ergocalciferol (Vitamin D2) 50,000 unit PO SUTUTH 05/14/16 06/05/16 History [Drisdol] Iron Infusion 1 dose IV WEEKLY PRN 05/14/16 06/05/16 History Prochlorperazine [Compazine] 5 mg PO BID PRN 05/14/16 06/05/16 History Prorenal Vitamin 1 tab PO DAILY 05/14/16 06/05/16 History amLODIPine [Norvasc] 10 mg PO QAM 05/14/16 06/05/16 History Albuterol Sulfate [Proair Hfa] 2 puff INHALATION RT-Q4H PRN 06/05/16 06/05/16 History Insulin NPL/Insulin Lispro 16 unit SQ AC-TID 06/05/16 06/05/16 History [humaLOG MIX 75-25 VIAL] Allergies Allergy/AdvReac Type Severity Reaction Status Date / Time ciprofloxacin [From Cipro] Allergy AFFECTED Verified 06/05/16 10:51 EYESIGHT ciprofloxacin HCl Allergy AFFECTED Verified 06/05/16 10:51 [From Cipro] EYESIGHT Iodinated Contrast Media - Allergy RENAL Verified 06/05/16 10:51 Oral and FAILURE Physical Exam Vitals: Vital Signs Temp Pulse Pulse Resp BP BP Pulse Ox 06/06/16 08:00 98.1 F 111 H 20 190/78 90 L 06/06/16 04:00 98 F 100 18 166/83 95 06/06/16 00:00 99.5 F 105 H 18 167/84 94 L 06/05/16 21:30 100.6 F H 06/05/16 20:00 99.1 F 111 H 18 147/72 98 06/05/16 16:00 98.4 F 169 H 20 216/81 97 06/05/16 15:59 98.6 F 108 H 24 198/87 96 06/05/16 14:26 105 H 20 195/88 95 Intake and Output 01/06/06/16 06/06/16 22:59 06:59 14:59 Intake Total 600 570 120 Output Total 0 100 Balance 600 470 120 Intake: IV 570 Azithromycin 500 mg In 250 Sodium Chloride 0.9% 250 ml @ 125 mls/hr IVPB DAILY@1900 [facility] Rx#: [id number] NS 120 Sodium Ferric Gluconat- 100 Sucrose 125 mg In Sodium Chloride 0.9% 100 ml @ 100 mls/hr IVPB DAILY@ 1800 [facility] Rx#:[id number] cefTRIAXone 1,000 mg In 100 Sodium Chloride 0.9% 50 ml @ 100 mls/hr IVPB Q24H [facility] Rx#:[id number] Oral 600 120 Output: Urine 0 0 Emesis 100 Other: Voiding Method Bedside Commode Bedside Commode # Voids 1 1 0 # Bowel Movements 1 Weight 76.5 kg 73.1 kg PHYSICAL EXAMINATION: HEENT: Head is atraumatic, normocephalic. Pupils equal, round. Neck is supple. There is no elevated jugular venous pressure. HEART EXAMINATION: Heart sounds regular, S1 and S2 normal. No murmur or gallop heard. CHEST EXAMINATION: Lungs reveal crackles to posterior left base. No chest wall tenderness is noted on palpation or with deep breathing. ABDOMEN: Soft, nontender. Bowel sounds are heard. No organomegaly noted. EXTREMITIES: 2+ peripheral pulses with no evidence of peripheral edema and no calf tenderness noted. NEUROLOGIC patient is awake, alert and oriented x3. . Results 06/06/16 06:18 06/06/16 06:18 Cardiac Enzymes 06/06/16 Range/Units 06:18 AST 43 H (14-36) U/L CBC 06/06/16 Range/Units 06:18 WBC 3.6 L (3.8-10.6) k/uL RBC 2.01 L (3.80-5.40) m/uL Hgb 6.7 L* (11.4-16.0) gm/dL Hct 19.9 L* (34.0-46.0) % Plt Count 159 (150-450) k/uL Comprehensive Metabolic Panel 06/06/16 Range/Units 06:18 Sodium 134 L (137-145) mmol/L Potassium 5.6 H (3.5-5.1) mmol/L Chloride 97 L (98-107) mmol/L Carbon Dioxide 24 (22-30) mmol/L BUN 39 H (7-17) mg/dL Creatinine 4.70 H (0.52-1.04) mg/dL Glucose 208 H (74-99) mg/dL Calcium 8.3 L (8.4-10.2) mg/dL AST 43 H (14-36) U/L ALT 104 H (9-52) U/L Alkaline Phosphatase 191 H (38-126) U/L Total Protein 6.3 (6.3-8.2) g/dL Albumin 3.5 (3.5-5.0) g/dL Current Medications Generic Name Dose Route Start Last Admin Trade Name Freq PRN Reason Stop Dose Admin Albuterol Sulfate 2.5 mg 06/05/16 16:28 Ventolin Nebulized INHALATION RT-Q4H PRN difficulty in breathing Amlodipine Besylate 10 mg 06/06/16 09:00 06/06/16 08:58 Norvasc PO 10 mg QAM [facility] Administration Atorvastatin Calcium 40 mg 06/05/16 21:00 06/05/16 20:19 Lipitor PO 40 mg HS [facility] Administration Calcitriol 0.25 mcg 06/06/16 09:00 06/06/16 08:59 Rocaltrol PO 0.25 mcg WEEKLY [facility] Administration Calcium Acetate 667 mg 06/05/16 17:30 06/06/16 06:31 Phoslo PO 667 mg TID-W/MEALS [facility] Administration Calcium Carbonate/Glycine 1,500 mg 06/05/16 17:30 06/06/16 06:26 Tums PO 1,500 mg AC-TID [facility] Administration Clonidine 0.3 mg 06/05/16 22:00 06/06/16 08:58 Catapres PO 0.3 mg TID [facility] Administration Cyclobenzaprine HCl 5 mg 06/05/16 21:00 06/05/16 20:19 Flexeril PO 5 mg HS [facility] Administration Darbepoetin Drew 40 mcg 06/06/16 09:00 Aranesp SQ Q7D [facility] Ergocalciferol 50,000 unit 06/08/16 09:00 Vitamin D2 PO SuTuTh@0900 [facility] Furosemide 40 mg 06/06/16 09:00 06/06/16 08:58 Lasix PO 40 mg BID@0900,1600 [facility] Administration Hydralazine HCl 50 mg 06/05/16 22:00 06/06/16 08:58 Apresoline PO 50 mg TID [facility] Administration Hydromorphone HCl 0.5 mg 06/05/16 18:32 06/06/16 09:04 Dilaudid IVP 0.5 mg Q4HR PRN Administration Pain Ferric Sodium Gluconate 125 mg 110 mls @ 100 mls/hr 06/05/16 20:00 06/05/16 22:15 / Sodium Chloride IVPB 100 mls/hr DAILY@1800 [facility] Administration Azithromycin 500 mg/ Sodium 250 mls @ 125 mls/hr 06/05/16 19:00 06/05/16 23: 35 Chloride IVPB 125 mls/hr DAILY@1900 [facility] Administration Ceftriaxone Sodium 1,000 mg/ 50 mls @ 100 mls/hr 06/05/16 18:45 06/05/16 20: 26 Sodium Chloride IVPB 100 mls/hr Q24H [facility] Administration Insulin Glargine 70 unit 06/06/16 09:00 06/06/16 09:52 Lantus SQ 70 unit QAM [facility] Administration Insulin Lispro Protam/Lispro Human 16 unit 06/05/16 17:30 06/06/16 07:26 Humalog Mix 75-25 Vial SQ 16 unit AC-TID [facility] Administration Lidocaine HCl 1 applic 06/05/16 16:30 06/05/16 18:40 Lmx 4 TOPICAL Not Given TUTA [facility] Magnesium Oxide 250 mg 06/06/16 12:00 Mag-Ox PO 1200 [facility] Multivit/Ca Carb/B Cmplx/FA/Prenat 1 each 06/06/16 12:00 Nephrocaps PO 1200 [facility] Pantoprazole Sodium 40 mg 06/06/16 07:30 06/06/16 06:31 Protonix PO 40 mg AC-BRKFST [facility] Administration Promethazine HCl 6.25 mg 06/06/16 00:49 06/06/16 05:28 Phenergan Syrup PO 6.25 mg Q4H PRN Administration Nausea And Vomiting Sodium Bicarbonate 650 mg 06/05/16 21:00 06/06/16 08:58 Sodium Bicarbonate Tab PO 650 mg BID [facility] Administration Sulfacetamide Sodium 1 - 2 drops 06/05/16 16:28 Bleph-10 BOTH EYES BID PRN Eye Irritation Tramadol HCl 50 mg 06/05/16 16:28 06/05/16 17:30 Ultram PO 50 mg TID PRN Administration Pain Intake and Output 06/05/16 06/06/16 06/06/16 22:59 06:59 14:59 Intake Total 600 570 120 Output Total 0 100 Balance 600 470 120 Intake: IV 570 Azithromycin 500 mg In 250 Sodium Chloride 0.9% 250 ml @ 125 mls/hr IVPB DAILY@1900 [facility] Rx#: [id number] NS 120 Sodium Ferric Gluconat- 100 Sucrose 125 mg In Sodium Chloride 0.9% 100 ml @ 100 mls/hr IVPB DAILY@ 1800 [facility] Rx#:[id number] cefTRIAXone 1,000 mg In 100 Sodium Chloride 0.9% 50 ml @ 100 mls/hr IVPB Q24H [facility] Rx#:[id number] Oral 600 120 Output: Urine 0 0 Emesis 100 Other: Voiding Method Bedside Commode Bedside Commode # Voids 1 1 0 # Bowel Movements 1 Weight 76.5 kg 73.1 kg 06/06/16 06:18 06/06/16 06:18 EKG Interpretations (text) Sinus tachycardia Assessment and Plan Plan: Assessment and plan #1 end-stage renal disease, on hemodialysis Tuesdays and Saturdays #2 hypertension #3 hyperkalemia #4 tachycardia #5 diabetes From cardiology's perspective, we will increase hydralazine to 100 mg by mouth 3 times a day. Tachycardia will likely improve after blood transfusion. We'll continue to follow the patient and provide further recommendations accordingly. [employer] note has been reviewed, I agree with a documented findings and plan of care. Patient was seen and examined.
[2016-06-06 11:44] LABS: Glucose,Whole Blood 200 mg/dL (75-99)
--- NOTE | 2016-06-06 12:14 | P.CRDCN ---
History of Present Illness History of present illness: Chart reviewed and patient examined and interviewed discussed with nurse practitioner Patient has hypertension She is on dialysis Her blood pressure fluctuates score but Today I increased her hydralazine to 100 mg 3 times a day Past her to use anywhere from 25 200 mg of hydralazine 3 times a day depending upon her blood pressure. Prior to dialysis she may need 100 mg and after dialysis either 25 or 50 mg. She understands how she has to work this. Another option is to use a clonidine patch instead of oral clonidine to minimize fluctuations Past Medical History Past Medical History: Diabetes Mellitus, Hyperlipidemia, Hypertension, Renal Disease Additional Past Medical History / Comment(s): Recent bronchitis-completed ABX, hypertriglyceridemia-induced acute pancreatitis, necrotizing pancreatitis-sent to [facility], hemodialysis for acute kidney injury 2 months in 2009 after pancreatic surgery, 11/2015 diagnosed with chronic kidney disease-hemodialysis //, IDDM type II, chronic anemia, occasional back pain, carter's palsey x2, past L leg fx. History of Any Multi-Drug Resistant Organisms: None Reported Past Surgical History: Uterine Ablation Additional Past Surgical History / Comment(s): pancreatic resection at [facility] 2009, bone marrow biopsies-last one 05/19/16,. dialysis chest port x 2 with removals, Left arm shunt placement for dialysis - December 2015 Past Anesthesia/Blood Transfusion Reactions: No Reported Reaction Additional Past Anesthesia/Blood Transfusion Reaction / Comment(s): Pt has received blood transfusions without reaction-last transfusion 06/04/16. Past Psychological History: No Psychological Hx Reported Additional Psychological History / Comment(s): Pt resides with spouse and 1 adult manish. She is independent. She uses no assistive device. She drives. Smoking Status: Never smoker Past Alcohol Use History: None Reported Additional Past Alcohol Use History / Comment(s): Patient is a lifelong nonsmoker. She denies any medical marijuana, marijuana, street drug use. She drinks alcohol on a very rare basis. She lives at home with her and 21- year-old daughter. There is a cat in the home. 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 Past Drug Use History: None Reported - Past Family History Brother(s) Family Medical History: No Reported History Mother Family Medical History: Cancer, Diabetes Mellitus Additional Family Medical History / Comment(s): Mother of throat cancer at the age of 63 yrs. She was a smoker. Father Family Medical History: Coronary Artery Disease (CAD), Hyperlipidemia, Hypertension Additional Family Medical History / Comment(s): Father is 70 yrs old. Medications and Allergies Home Medications Medication Instructions Recorded Confirmed Type Atorvastatin [Lipitor] 40 mg PO HS 09/14/15 06/05/16 History Cyclobenzaprine [Flexeril] 5 mg PO HS 09/14/15 06/05/16 History Magnesium Gluconate [Magonate] 500 mg PO BID 09/14/15 06/05/16 History Omeprazole [PriLOSEC] 20 mg PO DAILY 09/14/15 06/05/16 History Sulfacetamide 10% Ophth Soln 1 - 2 drop BOTH EYES BID PRN 09/14/15 06/05/16 History [Bleph-10] Calcium Carbonate [Tums] 1,500 mg PO AC-TID 10/29/15 06/05/16 History Furosemide [Lasix] 40 mg PO BID 03/12/16 06/05/16 History Lidocaine 4% Cream [Lmx 4] 1 applic TOPICAL TUTHSA 03/12/16 06/05/16 History cloNIDine HCL [Catapres] 0.3 mg PO TID 03/12/16 06/05/16 History traMADol HCl [Ultram] 50 mg PO TID PRN 03/12/16 06/05/16 History Insulin Glargine [Lantus] 70 unit SQ QAM 04/18/16 06/05/16 History Calcitriol [Rocaltrol] 0.25 mcg PO WEEKLY 05/14/16 06/05/16 History Calcium Acetate [Phoslo] 1,334 mg PO DIRECTED PRN 05/14/16 06/05/16 History Calcium Acetate [Phoslo] 667 mg PO TID 05/14/16 06/05/16 History Ergocalciferol (Vitamin D2) 50,000 unit PO SUTUTH 05/14/16 06/05/16 History [Drisdol] Iron Infusion 1 dose IV WEEKLY PRN 05/14/16 06/05/16 History Prochlorperazine [Compazine] 5 mg PO BID PRN 05/14/16 06/05/16 History Prorenal Vitamin 1 tab PO DAILY 05/14/16 06/05/16 History amLODIPine [Norvasc] 10 mg PO QAM 05/14/16 06/05/16 History Albuterol Sulfate [Proair Hfa] 2 puff INHALATION RT-Q4H PRN 06/05/16 06/05/16 History Insulin NPL/Insulin Lispro 16 unit SQ AC-TID 06/05/16 06/05/16 History [humaLOG MIX 75-25 VIAL] Allergies Allergy/AdvReac Type Severity Reaction Status Date / Time ciprofloxacin [From Cipro] Allergy AFFECTED Verified 06/05/16 10:51 EYESIGHT ciprofloxacin HCl Allergy AFFECTED Verified 06/05/16 10:51 [From Cipro] EYESIGHT Iodinated Contrast Media - Allergy RENAL Verified 06/05/16 10:51 Oral and FAILURE Physical Exam Vitals: Vital Signs Temp Pulse Pulse Resp BP BP Pulse Ox 06/06/16 11:47 98.2 F 96 20 181/77 91 L 06/06/16 08:00 98.1 F 111 H 20 190/78 90 L 06/06/16 04:00 98 F 100 18 166/83 95 06/06/16 00:00 99.5 F 105 H 18 167/84 94 L 06/05/16 21:30 100.6 F H 06/05/16 20:00 99.1 F 111 H 18 147/72 98 06/05/16 16:00 98.4 F 169 H 20 216/81 97 06/05/16 15:59 98.6 F 108 H 24 198/87 96 06/05/16 14:26 105 H 20 195/88 95 Intake and Output 06/05/16 06/06/16 06/06/16 22:59 06:59 14:59 Intake Total 600 570 120 Output Total 0 100 Balance 600 470 120 Intake: IV 570 Azithromycin 500 mg In 250 Sodium Chloride 0.9% 250 ml @ 125 mls/hr IVPB DAILY@1900 [facility] Rx#: [id number] NS 120 Sodium Ferric Gluconat- 100 Sucrose 125 mg In Sodium Chloride 0.9% 100 ml @ 100 mls/hr IVPB DAILY@ 1800 [facility] Rx#:[id number] cefTRIAXone 1,000 mg In 100 Sodium Chloride 0.9% 50 ml @ 100 mls/hr IVPB Q24H [facility] Rx#:[id number] Oral 600 120 Output: Urine 0 0 Emesis 100 Other: Voiding Method Bedside Commode Bedside Commode # Voids 1 1 0 # Bowel Movements 1 Weight 76.5 kg 73.1 kg Results 06/06/16 06:18 06/06/16 06:18 Cardiac Enzymes 06/06/16 Range/Units 06:18 AST 43 H (14-36) U/L CBC 06/06/16 Range/Units 06:18 WBC 3.6 L (3.8-10.6) k/uL RBC 2.01 L (3.80-5.40) m/uL Hgb 6.7 L* (11.4-16.0) gm/dL Hct 19.9 L* (34.0-46.0) % Plt Count 159 (150-450) k/uL Comprehensive Metabolic Panel 06/06/16 Range/Units 06:18 Sodium 134 L (137-145) mmol/L Potassium 5.6 H (3.5-5.1) mmol/L Chloride 97 L (98-107) mmol/L Carbon Dioxide 24 (22-30) mmol/L BUN 39 H (7-17) mg/dL Creatinine 4.70 H (0.52-1.04) mg/dL Glucose 208 H (74-99) mg/dL Calcium 8.3 L (8.4-10.2) mg/dL AST 43 H (14-36) U/L ALT 104 H (9-52) U/L Alkaline Phosphatase 191 H (38-126) U/L Total Protein 6.3 (6.3-8.2) g/dL Albumin 3.5 (3.5-5.0) g/dL Current Medications Generic Name Dose Route Start Last Admin Trade Name Freq PRN Reason Stop Dose Admin Albuterol Sulfate 2.5 mg 06/05/16 16:28 Ventolin Nebulized INHALATION RT-Q4H PRN difficulty in breathing Amlodipine Besylate 10 mg 06/06/16 09:00 06/06/16 08:58 Norvasc PO 10 mg QAM [facility] Administration Atorvastatin Calcium 40 mg 06/05/16 21:00 06/05/16 20:19 Lipitor PO 40 mg HS [facility] Administration Calcitriol 0.25 mcg 06/06/16 09:00 06/06/16 08:59 Rocaltrol PO 0.25 mcg WEEKLY [facility] Administration Calcium Acetate 667 mg 06/05/16 17:30 06/06/16 06:31 Phoslo PO 667 mg TID-W/MEALS [facility] Administration Calcium Carbonate/Glycine 1,500 mg 06/05/16 17:30 06/06/16 06:26 Tums PO 1,500 mg AC-TID [facility] Administration Clonidine 0.3 mg 06/05/16 22:00 06/06/16 08:58 Catapres PO 0.3 mg TID [facility] Administration Cyclobenzaprine HCl 5 mg 06/05/16 21:00 06/05/16 20:19 Flexeril PO 5 mg HS [facility] Administration Darbepoetin Drew 40 mcg 06/06/16 09:00 Aranesp SQ Q7D [facility] Ergocalciferol 50,000 unit 06/08/16 09:00 Vitamin D2 PO SuTuTh@0900 [facility] Furosemide 40 mg 06/06/16 09:00 06/06/16 08:58 Lasix PO 40 mg BID@0900,1600 [facility] Administration Hydralazine HCl 100 mg 06/06/16 11:18 Apresoline PO TID [facility] Hydromorphone HCl 0.5 mg 06/05/16 18:32 06/06/16 09:04 Dilaudid IVP 0.5 mg Q4HR PRN Administration Pain Ferric Sodium Gluconate 125 mg 110 mls @ 100 mls/hr 06/05/16 20:00 06/05/16 22:15 / Sodium Chloride IVPB 100 mls/hr DAILY@1800 [facility] Administration Azithromycin 500 mg/ Sodium 250 mls @ 125 mls/hr 06/05/16 19:00 06/05/16 23: 35 Chloride IVPB 125 mls/hr DAILY@1900 [facility] Administration Ceftriaxone Sodium 1,000 mg/ 50 mls @ 100 mls/hr 06/05/16 18:45 06/05/16 20: 26 Sodium Chloride IVPB 100 mls/hr Q24H [facility] Administration Insulin Glargine 70 unit 06/06/16 09:00 06/06/16 09:52 Lantus SQ 70 unit QAM [facility] Administration Insulin Lispro Protam/Lispro Human 16 unit 06/05/16 17:30 06/06/16 07:26 Humalog Mix 75-25 Vial SQ 16 unit AC-TID [facility] Administration Lidocaine HCl 1 applic 06/05/16 16:30 06/05/16 18:40 Lmx 4 TOPICAL Not Given TUTA [facility] Magnesium Oxide 250 mg 06/06/16 12:00 Mag-Ox PO 1200 [facility] Multivit/Ca Carb/B Cmplx/FA/Prenat 1 each 06/06/16 12:00 Nephrocaps PO 1200 [facility] Pantoprazole Sodium 40 mg 06/06/16 07:30 06/06/16 06:31 Protonix PO 40 mg AC-BRKFST [facility] Administration Promethazine HCl 6.25 mg 06/06/16 00:49 06/06/16 05:28 Phenergan Syrup PO 6.25 mg Q4H PRN Administration Nausea And Vomiting Sodium Bicarbonate 650 mg 06/05/16 21:00 06/06/16 08:58 Sodium Bicarbonate Tab PO 650 mg BID [facility] Administration Sulfacetamide Sodium 1 - 2 drops 06/05/16 16:28 Bleph-10 BOTH EYES BID PRN Eye Irritation Tramadol HCl 50 mg 06/05/16 16:28 06/05/16 17:30 Ultram PO 50 mg TID PRN Administration Pain Intake and Output 06/05/16 06/06/16 06/06/16 22:59 06:59 14:59 Intake Total 600 570 120 Output Total 0 100 Balance 600 470 120 Intake: IV 570 Azithromycin 500 mg In 250 Sodium Chloride 0.9% 250 ml @ 125 mls/hr IVPB DAILY@1900 [facility] Rx#: [id number] NS 120 Sodium Ferric Gluconat- 100 Sucrose 125 mg In Sodium Chloride 0.9% 100 ml @ 100 mls/hr IVPB DAILY@ 1800 [facility] Rx#:[id number] cefTRIAXone 1,000 mg In 100 Sodium Chloride 0.9% 50 ml @ 100 mls/hr IVPB Q24H [facility] Rx#:[id number] Oral 600 120 Output: Urine 0 0 Emesis 100 Other: Voiding Method Bedside Commode Bedside Commode # Voids 1 1 0 # Bowel Movements 1 Weight 76.5 kg 73.1 kg 06/06/16 06:18 06/06/16 06:18
[2016-06-06] MEDS: FOLIC ACID-VIT B COMPLEX-VIT C 1 CAP PO SCH (12:37)
[2016-06-06] MEDS: MAGNESIUM OXIDE 250 MG TAB PO SCH (12:37)
[2016-06-06 13:05] VITALS: BMI 28.5
--- NOTE | 2016-06-06 13:19 | P.PN ---
Subjective 50-year-old female being seen on rounds by the attending this morning. Patient has a history of end-stage renal disease on hemodialysis. Patients being followed this admission by cardiology and nephrology service. Patient presented on the day of admission as a transfer from [facility] where laboratory values upon presentation to the emergency room where 7.1. The potassium has been corrected patient verbalizes that she feels better. Patient was dialyzed urgently last night. Patient states she's having less heart palpitations and is not coughing up any secretions. Denying chest pain or shortness of breath no dizziness no lightheadedness. It was noted the chest x- ray [facility] showed bilateral infiltrate. Hemoglobin on admission was 7.3 Objective - Vital Signs Vital signs: Vital Signs Temp 98.2 F 06/06/16 11:47 Pulse 96 06/06/16 11:47 Resp 20 06/06/16 11:47 BP 181/77 06/06/16 11:47 Pulse Ox 91 L 06/06/16 11:47 Intake & Output 06/05/16 06/06/16 06/06/16 18:59 06:59 18:59 Intake Total 0 1170 120 Output Total 0 100 200 Balance 0 1070 -80 Weight 76.5 kg 73.1 kg 73.1 kg Intake: IV 570 Azithromycin 500 mg In 250 Sodium Chloride 0.9% 250 ml @ 125 mls/hr IVPB DAILY@1900 [facility] Rx#: [id number] NS 120 Sodium Ferric Gluconat- 100 Sucrose 125 mg In Sodium Chloride 0.9% 100 ml @ 100 mls/hr IVPB DAILY@ 1800 [facility] Rx#:[id number] cefTRIAXone 1,000 mg In 100 Sodium Chloride 0.9% 50 ml @ 100 mls/hr IVPB Q24H [facility] Rx#:[id number] Oral 0 600 120 Output: Urine 0 0 200 Emesis 100 Other: Voiding Method Bedside Commode Bedside Commode # Voids 1 0 # Bowel Movements 1 - Exam Physical exam 50-year-old female resting comfortably in bed does not appear in any acute distress pleasant cooperative oriented 3 Lungs crackles at the bases left greater than the right. No wheezing noted no cough noted Heart S1-S2 regular no murmur noted Abdomen soft nontender no reports of nausea vomiting Extremities no edema noted tenderness - Labs CBC & Chem 7: 06/06/16 06:18 06/06/16 06:18 Labs: Abnormal Lab Results - Last 24 Hours (Table) 06/05/16 06/05/16 06/05/16 Range/Units 15:20 16:42 20:39 WBC (3.8-10.6) k/uL RBC (3.80-5.40) m/uL Hgb (11.4-16.0) gm/dL Hct (34.0-46.0) % RDW (11.5-15.5) % Lymphocytes # (1.0-4.8) k/uL Sodium (137-145) mmol/L Potassium (3.5-5.1) mmol/L Chloride (98-107) mmol/L BUN (7-17) mg/dL Creatinine (0.52-1.04) mg/dL Glucose (74-99) mg/dL POC Glucose (mg/dL) 160 H 190 H 287 H (75-99) mg/dL Calcium (8.4-10.2) mg/dL Phosphorus (2.5-4.5) mg/dL TIBC (265-497) ug/dL Ferritin (6-137) ng/mL AST (14-36) U/L ALT (9-52) U/L Alkaline Phosphatase (38-126) U/L 06/06/16 06/06/16 06/06/16 Range/Units 06:18 06:18 06:18 WBC 3.6 L (3.8-10.6) k/uL RBC 2.01 L (3.80-5.40) m/uL Hgb 6.7 L* (11.4-16.0) gm/dL Hct 19.9 L* (34.0-46.0) % RDW 21.0 H (11.5-15.5) % Lymphocytes # 0.3 L (1.0-4.8) k/uL Sodium 134 L (137-145) mmol/L Potassium 5.6 H (3.5-5.1) mmol/L Chloride 97 L (98-107) mmol/L BUN 39 H (7-17) mg/dL Creatinine 4.70 H (0.52-1.04) mg/dL Glucose 208 H (74-99) mg/dL POC Glucose (mg/dL) (75-99) mg/dL Calcium 8.3 L (8.4-10.2) mg/dL Phosphorus 5.2 H (2.5-4.5) mg/dL TIBC 241 L (265-497) ug/dL Ferritin 1050 H (6-137) ng/mL AST 43 H (14-36) U/L ALT 104 H (9-52) U/L Alkaline Phosphatase 191 H (38-126) U/L 06/06/16 06/06/16 Range/Units 07:49 11:43 WBC (3.8-10.6) k/uL RBC (3.80-5.40) m/uL Hgb (11.4-16.0) gm/dL Hct (34.0-46.0) % RDW (11.5-15.5) % Lymphocytes # (1.0-4.8) k/uL Sodium (137-145) mmol/L Potassium (3.5-5.1) mmol/L Chloride (98-107) mmol/L BUN (7-17) mg/dL Creatinine (0.52-1.04) mg/dL Glucose (74-99) mg/dL POC Glucose (mg/dL) 246 H 200 H (75-99) mg/dL Calcium (8.4-10.2) mg/dL Phosphorus (2.5-4.5) mg/dL TIBC (265-497) ug/dL Ferritin (6-137) ng/mL AST (14-36) U/L ALT (9-52) U/L Alkaline Phosphatase (38-126) U/L Assessment and Plan Plan: Present on admission severe electrolyte abnormality hyperkalemia End-stage renal disease hemodialysis dependent Present on admission sinus tachycardic suspect due to anemia Episode prior to omission of hemoptysis with improved A recent treatment for an upper respiratory infection just completed a course of Z-Travis earlier in the week Prior to admission hypertension urgency while at the dialysis center Lifelong nonsmoker Anemia suspect iron deficiency Type 2 diabetes non-insulin History of a pancreatic resection tray 2009 Chronic kidney disease minimal bone Acute anemia necessitating 1 unit packed red blood cells for hemoglobin of 6.7 Plan DVT and GI prophylaxis Continue with recommendations by nephrology and cardiology service Await pulmonology's recommendations Resume home meds as appropriate Hemodialysis is scheduled for the per nephrology DVT and GI prophylaxis Patient will receive 1 unit of packed red blood cells today monitor response Further recommendations pending will follow The above dictated assessment and findings were discussed with Dr. rBagg Impression and the plan of care have been dictated as directed. Shakira Dias nurse practitioner acting as a scribe for dr Bragg
[2016-06-06 16:56] LABS: Glucose,Whole Blood 160 mg/dL (75-99)
--- NOTE | 2016-06-06 17:33 | CONS ---
DATE OF CONSULTATION: 06/06/2016 REASON FOR CONSULTATION: Pneumonia. HISTORY OF PRESENTING ILLNESS: Sara Desouza is a 50-year-old female who was seen, evaluated, examined on the sixth floor. This patient presented into the emergency department with problems associated with tachycardia, hypertension during dialysis and was sent to the emergency department for further evaluation. The patient has hypokalemia as well and was eventually admitted to the hospital. Patient has been complaining of shortness of breath as well. With those problems came into the hospital for further evaluation. It appears that patient required IV D50 as well as insulin and Kayexalate p.o. as well. Past medical history is significant for: Dyslipidemia, hypertension, hypertensive cardiovascular disease, chronic renal failure on hemodialysis, hypertriglyceridemia, history of recurrent necrotizing pancreatitis and was sent to [facility], hemodialysis for acute renal failure, history of pancreatic surgery, chronic kidney failure, type 2 diabetes mellitus, history of chronic anemia, right toe infection, history of Hoffman's palsy, left leg fracture, history of hemodialysis, which occurs on Thursday, and Thursday. PAST SURGICAL HISTORY: Significant for uterine ablation, status post pancreatic resection in [facility] in 2011, history of bone marrow biopsies, history of left arm shunt. FAMILY HISTORY AND SOCIAL HISTORY: Denies any smoking, ethanol abuse. No history of substance use or alcohol consumption. She lives with her family. ALLERGIES: CIPRO, CONTRAST AGENT, IV DYE. MEDICATIONS AT HOME: Lipitor 40 mg a day, Flexeril 5 mg daily, Magonate 500 mg p.o. 2 times a day, Prilosec 20 mg daily, eye drops, also on Lasix 40 mg 2 times a day, Lidocaine, clonidine 0.3 mg 3 times a day, Ultram, Lantus, also Calcitrol, PhosLo, vitamin B, iron infusion, Compazine, vitamin, Norvasc, ProAir, Lispro. Current medications while in the hospital include: Albuterol updraft as needed, Norvasc 10 mg daily, Lipitor 40 mg, Zithromax 500 mg daily, calcitriol, also on PhosLo, calcium carbonate, Rocephin 1 gram daily, clonidine, Flexeril, darbepoetin alpha every 7 day, vitamin D, ferrous sulfate, Lasix 40 mg p.o. 2 times a day. Hydralazine 100 mg 2 times a day, Dilaudid for pain control, Lantus 70 units in the morning, 75/25 as per 16 units 3 times a day with meals, multivitamin, Protonix, sodium bicarbonate and tramadol. REVIEW OF SYSTEMS: Otherwise unremarkable and noncontributory. On examination, most recent vitals include blood pressure is 181/77, respiratory rate 20, pulse 96, temperature 98, saturation 91% on room air. HEENT: Atraumatic, normocephalic. Pharynx is clear without any exudate. NECK: Supple without lymphadenopathy, jugular venous distention or carotid bruit. LUNGS: Bilateral good air entry is present. A few crackles at bases cannot be excluded. HEART: Regular rate and rhythm. S1 and S2 audible. ABDOMEN: Soft. No rebound or rigidity. EXTREMITIES: +1 peripheral pulses. NEUROLOGICAL EXAMINATION: Otherwise, awake and alert. Labs reviewed. Medications reviewed as well. Culture results and report including blood cultures, is no growth so far. Radiographic studies include: Chest x-ray is not performed yet. We will review of the x-ray performed at outside facility. Laboratory data reviewed. White cell count 3600, hemoglobin 6.7, hematocrit 19.9, platelet count of 159,000. Sodium 130, potassium 5.6. BUN and creatinine 39 and 4.7. Total iron 241. LFTs show AST and ALT are 104 and 191. Sugar is 200 range. IMPRESSION: 1. Tracheobronchitis with possible pneumonia cannot be excluded. Will obtain a follow-up chest x-ray tomorrow. Continue Rocephin and Zithromax at this point of time. Patient recently was treated in outpatient setting with Zithromax. 2. Severe anemia. 3. Severe hyperkalemia, which has normalized 4. Chronic renal failure on hemodialysis as planned. 5. Elevated liver enzymes, likely multifactorial process. 6. History of triglyceridemia. PLAN: As above. Continue breathing treatments, antibiotics. We will follow-up chest x-ray tomorrow. Further recommendations pending. Plan of care as per clinical response of the patient.
--- NOTE | 2016-06-06 18:17 | XR ---
EXAMINATION TYPE: XR chest 2V DATE OF EXAM: 06/06/2016 6:10 PM COMPARISON: 05/28/2016 HISTORY: Pneumonia TECHNIQUE: Frontal and lateral views of the chest are obtained. FINDINGS: The heart is enlarged. There is pulmonary vascular congestion. There is pulmonary intersti tial edema. There are chest leads. Costophrenic angles are clear. IMPRESSION: There is no pulmonary interstitial edema compared to old exam. Mild cardiomegaly. This c ould relate to interstitial pneumonia. Congestive heart failure cannot be excluded.
[2016-06-06] MEDS: SODIUM FERRIC GLUCONAT-SUCROSE 125 MG in SODIUM CHLORIDE 0.9% 100 ML IVPB SCH (20:07)
[2016-06-06] MEDS: ATORVASTATIN 40 MG TAB PO SCH (20:12)
[2016-06-06] MEDS: CYCLOBENZAPRINE 5 MG TAB PO SCH (20:12)
[2016-06-06 20:44] LABS: Glucose,Whole Blood 131 mg/dL (75-99)
[2016-06-06] MEDS: AZITHROMYCIN 500 MG in SODIUM CHLORIDE 0.9% 250 ML IVPB SCH (23:19)
[2016-06-07 06:15] LABS: Glucose,Whole Blood 81 mg/dL (75-99)
[2016-06-07] MEDS: PANTOPRAZOLE 40 MG TABLET PO SCH (06:38)
[2016-06-07] MEDS: CALCIUM ACETATE 667 MG CAP PO SCH ×3 (06:38→17:10)
[2016-06-07] MEDS: CALCIUM CARBONATE 500 MG CHEWABLE PO SCH ×3 (06:38→17:10)
[2016-06-07] MEDS: INSULIN NPL/INSULIN LISPRO 100 UNIT/ML 10 ML VIAL (Humalog 75/25) SQ SCH ×3 (07:19→17:09)
[2016-06-07] MEDS: SODIUM BICARBONATE TAB 650 MG TAB PO SCH ×2 (07:43→23:14)
[2016-06-07] MEDS: hydrALAZINE HCL 50 MG TAB PO SCH ×3 (07:43→22:31)
[2016-06-07] MEDS: amLODIPine 10 MG TAB PO SCH (07:43)
[2016-06-07] MEDS: FUROSEMIDE 40 MG TAB PO SCH ×2 (07:43→15:10)
[2016-06-07] MEDS: cloNIDine HCL 0.1 MG TAB PO SCH ×3 (07:44→22:31)
[2016-06-07 08:51] LABS: Calcium 8.4 mg/dL (8.4-10.2); Potassium 5.4 mmol/L (3.5-5.1)
--- NOTE | 2016-06-07 09:20 | PN ---
Sara Desouza is seen, evaluated, and examined. She is a 50-year-old female on the sixth floor. Patient is having intermittent cough with a few streaks of blood. Denies any chest pain. She is on supplemental oxygen without any humidification. Her hemodynamic status is stable. Her last of vitals include blood pressure is 183/84, respiratory rate 18, pulse 94, temperature is 97, saturation 95% on 3 L oxygen. HEENT: Unremarkable. NECK: Supple. LUNGS: Good air entry bilaterally. HEART: Regular rate and rhythm. ABDOMEN: Soft. NEUROLOGICAL EXAMINATION: Awake and alert. Chest x-ray essentially unremarkable. Some interstitial edema cannot be excluded. However, no obvious pneumonia identified. IMPRESSION: 1. Streaks of blood and hemoptysis, likely related to respiratory inflammation; however, the patient is on broad-spectrum antibiotics. Will put humidification in oxygen as well. 2. Chronic renal failure on hemodialysis. 3. Hypertriglyceridemia. 4. Chronic recurrent pancreatitis. 5. Purulent tracheobronchitis. 6. Hyperkalemia. 7. Anemia. 8. Elevated liver enzymes. 9. History of triglyceridemia. Plan is to continue antibiotics, supportive care. Follow clinical course closely. Increase activity as tolerated. If patient continues to manifest streaks of blood, may be a candidate for endoscopy. Continue supportive care for now. Will follow.
--- NOTE | 2016-06-07 09:46 | P.PN ---
Subjective Patient is seen in follow-up for end-stage renal disease. She is maintained on hemodialysis on a Thursday schedule. She presented with tachyarrhythmia as well as high blood pressure. She's been running low hemoglobin as an outpatient and has received multiple packed red blood cell transfusion. She also underwent a recent bone marrow biopsy. Her hemoglobin was 6.7 at the time of admission and she did receive 1 unit of packed red blood cell transfusion yesterday. Currently resting in bed. Difficult to awaken. Vital signs are stable. General: The patient appeared well nourished and normally developed. HEENT: Head exam is unremarkable. Neck is without jugular venous distension. LUNGS: Lungs are clear to auscultation and percussion. Breath sounds decreased. HEART: Rate and Rhythm are regular. First and second heart sounds normal. No murmurs, rubs or gallops. ABDOMEN: Abdominal exam reveals normal bowel sounds. Non-tender and non- distended. No evidence of peritonitis. EXTREMITITES: No clubbing, cyanosis, or edema. Objective - Vital Signs Vital signs: Vital Signs Temp 98.4 F 06/07/16 08:00 Pulse 90 06/07/16 08:00 Resp 18 06/07/16 08:00 BP 174/90 06/07/16 08:00 Pulse Ox 95 06/07/16 08:00 Intake & Output 06/06/16 06/07/16 06/07/16 18:59 06:59 18:59 Intake Total 1260 1480 180 Output Total 200 200 Balance 1060 1280 180 Weight 73.1 kg 74.4 kg Intake: IV 270 Azithromycin 500 mg In 250 Sodium Chloride 0.9% 250 ml @ 125 mls/hr IVPB DAILY@1900 [facility] Rx#: [id number] NS 20 Oral 1260 600 180 Blood Product 610 Rc Irr As1 Unit 310 [id number] Output: Urine 200 200 Other: Voiding Method Bedside Commode # Voids 0 - Labs CBC & Chem 7: 06/06/16 06:18 06/07/16 07:39 Labs: Abnormal Lab Results - Last 24 Hours (Table) 06/06/16 06/06/16 06/06/16 Range/Units 06:18 11:43 13:41 Potassium (3.5-5.1) mmol/L BUN (7-17) mg/dL Creatinine (0.52-1.04) mg/dL POC Glucose (mg/dL) 200 H (75-99) mg/dL Phosphorus 5.2 H (2.5-4.5) mg/dL TIBC 241 L (265-497) ug/dL Ferritin 1050 H (6-137) ng/mL Crossmatch See Detail 06/06/16 06/06/16 06/07/16 Range/Units 16:54 20:43 07:39 Potassium 5.4 H (3.5-5.1) mmol/L BUN 65 H (7-17) mg/dL Creatinine 6.25 H* (0.52-1.04) mg/dL POC Glucose (mg/dL) 160 H 131 H (75-99) mg/dL Phosphorus (2.5-4.5) mg/dL TIBC (265-497) ug/dL Ferritin (6-137) ng/mL Crossmatch Assessment and Plan Plan: Assessment: #1. End-stage renal disease maintained on hemodialysis on a Thursday schedule. #2. Hyperkalemia secondary to chronic kidney disease as well as hyperglycemia. Questionable underlying GI bleed may also be a contributor factor. #3. Acute anemia. Hemoglobin 6.7 on admission. Status post 1 unit of packed red blood cell transfusion on June 06. #4. Hypertension with chronic kidney disease. #5. Chronic kidney disease mineral bone disease. #6. Tachyarrhythmia. Possibly related to anemia. #7. Insulin-dependent diabetes mellitus. Plan: Monitor hemoglobin and transfuse as needed. Hemodialysis today with goal 3 L ultrafiltration. Maintain Aranesp. Maintain PhosLo with meals. Nephrocaps daily.
[2016-06-07] MEDS: PROMETHAZINE 6.25MG/5ML 147.5 MG/118 ML BOTTLE PO PRN ×3 (10:21→23:14)
[2016-06-07 11:33] LABS: Glucose,Whole Blood 95 mg/dL (75-99)
[2016-06-07] MEDS: INSULIN GLARGINE 100 UNIT/ML 10 ML VIAL SQ SCH (11:34)
[2016-06-07] MEDS: FOLIC ACID-VIT B COMPLEX-VIT C 1 CAP PO SCH (11:36)
[2016-06-07] MEDS: MAGNESIUM OXIDE 250 MG TAB PO SCH (11:36)
[2016-06-07 12:16] LABS: Anisocytosis Slight; Basophils % (A) 1 %; CH 31.9; Eosinophils % (A) 2 %; HCT 24.2 % (34.0-46.0); HDW 4.13; HGB 7.7 gm/dL (11.4-16.0); Hypochromasia Slight; Luc # (Auto) 0.04; Luc % (Auto) 1; Lymphocytes # (A) 0.4 k/uL (1.0-4.8); Lymphocytes % (A) 15 %; MCH 31.1 pg (25.0-35.0); MCHC 31.9 g/dL (31.0-37.0); MCV 97.5 fL (80.0-100.0); Macrocytosis Slight; Mean Platelet Volume 7.9; Monocytes # (A) 0.1 k/uL (0-1.0); Monocytes % (A) 5 %; Neutrophils # (A) 2.1 k/uL (1.3-7.7); Neutrophils % (A) 77 %; Poikilocytosis Moderate; RBC 2.48 m/uL (3.80-5.40); RDW 18.7 % (11.5-15.5); WBC 2.7 k/uL (3.8-10.6); WBC (Perox) 2.69
[2016-06-07] MEDS: LIDOCAINE 4% CREAM 5 GM TUBE TOPICAL SCH (15:13)
[2016-06-07 16:25] LABS: Glucose,Whole Blood 294 mg/dL (75-99)
[2016-06-07] MEDS: SODIUM FERRIC GLUCONAT-SUCROSE 125 MG in SODIUM CHLORIDE 0.9% 100 ML IVPB SCH (17:14)
[2016-06-07] MEDS: HYDROmorphone 1 MG/ML 1 ML SYRINGE IVP PRN ×2 (18:17→22:38)
[2016-06-07 21:40] LABS: Glucose,Whole Blood 119 mg/dL (75-99)
[2016-06-07] MEDS: ATORVASTATIN 40 MG TAB PO SCH (22:31)
[2016-06-07] MEDS: CYCLOBENZAPRINE 5 MG TAB PO SCH (22:32)
[2016-06-07] MEDS: AZITHROMYCIN 500 MG in SODIUM CHLORIDE 0.9% 250 ML IVPB SCH (23:13)
[2016-06-08] MEDS: HYDROmorphone 1 MG/ML 1 ML SYRINGE IVP PRN ×2 (03:19→20:44)
[2016-06-08] MEDS: PROMETHAZINE 6.25MG/5ML 147.5 MG/118 ML BOTTLE PO PRN ×4 (04:50→20:24)
[2016-06-08] MEDS: PANTOPRAZOLE 40 MG TABLET PO SCH (06:42)
[2016-06-08] MEDS: CALCIUM CARBONATE 500 MG CHEWABLE PO SCH ×3 (06:42→17:04)
[2016-06-08] MEDS: CALCIUM ACETATE 667 MG CAP PO SCH ×3 (06:42→17:05)
[2016-06-08 06:53] LABS: Glucose,Whole Blood 117 mg/dL (75-99)
[2016-06-08] MEDS: INSULIN NPL/INSULIN LISPRO 100 UNIT/ML 10 ML VIAL (Humalog 75/25) SQ SCH ×3 (07:05→17:05)
[2016-06-08 07:11] LABS: Anisocytosis Moderate; Basophils % (A) 0 %; CH 32.4; CHCM 33.7; Eosinophils % (A) 2 %; HCT 21.9 % (34.0-46.0); HDW 4.35; HGB 7.5 gm/dL (11.4-16.0); Hypochromasia Slight; Luc # (Auto) 0.04; Luc % (Auto) 2; Lymphocytes # (A) 0.4 k/uL (1.0-4.8); Lymphocytes % (A) 16 %; MCH 33.2 pg (25.0-35.0); MCHC 34.2 g/dL (31.0-37.0); Macrocytosis Slight; Mean Platelet Volume 7.6; Monocytes # (A) 0.2 k/uL (0-1.0); Monocytes % (A) 8 %; Neutrophils # (A) 1.7 k/uL (1.3-7.7); Neutrophils % (A) 72 %; Poikilocytosis Moderate; RBC 2.26 m/uL (3.80-5.40); RDW 20.3 % (11.5-15.5); WBC 2.4 k/uL (3.8-10.6); WBC (Perox) 2.24
[2016-06-08 07:21] LABS: Calcium 8.1 mg/dL (8.4-10.2); Potassium 5.7 mmol/L (3.5-5.1); Total Bilirubin 0.7 mg/dL (0.2-1.3); Total Protein 6.3 g/dL (6.3-8.2)
[2016-06-08] MEDS: INSULIN GLARGINE 100 UNIT/ML 10 ML VIAL SQ SCH (08:16)
[2016-06-08] MEDS: cloNIDine HCL 0.1 MG TAB PO SCH ×3 (08:16→20:24)
[2016-06-08] MEDS: SODIUM BICARBONATE TAB 650 MG TAB PO SCH ×2 (08:16→20:24)
[2016-06-08] MEDS: hydrALAZINE HCL 50 MG TAB PO SCH ×3 (08:16→20:23)
[2016-06-08] MEDS: ERGOCALCIFEROL 50,000 UNIT CAP PO SCH (08:16)
[2016-06-08] MEDS: amLODIPine 10 MG TAB PO SCH (08:16)
[2016-06-08] MEDS: FUROSEMIDE 40 MG TAB PO SCH ×2 (08:16→15:32)
--- NOTE | 2016-06-08 09:06 | PN ---
SUBJECTIVE: This is a 50-year-old white female admitted with severe renal insufficiency and pneumonia. She started on IV Rocephin and Zithromax. White count is 2.7. Hemoglobin is 7.7. Platelet count is 129. Potassium is 5.4, BUN 65, creatinine 6.25. Sugars are in the mid 200s. CARDIOVASCULAR: S1, S2. LUNGS: Transmitted upper airway sounds. HEMATOLOGIC: Negative Homans. PSYCHIATRIC: Fair mood and affect assessed. PLAN: Continue with hemodialysis. Continue with IV antibiotics. Chronic recurrent pancreatitis and tracheobronchitis will be continued with IV antibiotics. Hyperkalemia treated with dialysis. Anemia and elevated liver enzymes, triglyceridemia. Continue with antibiotics and supportive care. Possible endoscopy will be done. Possibly get a consult with Dr. Jain for streaks of blood in sputum.
--- NOTE | 2016-06-08 09:14 | P.PN ---
Subjective Patient is seen in follow-up for end-stage renal disease. She is maintained on hemodialysis on a Thursday schedule. She presented with tachyarrhythmia as well as high blood pressure. She's been running low hemoglobin as an outpatient and has received multiple packed red blood cell transfusions as an outpatient. She also underwent a recent bone marrow biopsy. Her hemoglobin was 6.7 at the time of admission and she did receive 1 unit of packed red blood cell transfusion this admission. Hemoglobin 7.5 today. Currently resting in bed. Vital signs are stable. General: The patient appeared well nourished and normally developed. HEENT: Head exam is unremarkable. Neck is without jugular venous distension. LUNGS: Lungs are clear to auscultation and percussion. Breath sounds decreased. HEART: Rate and Rhythm are regular. First and second heart sounds normal. No murmurs, rubs or gallops. ABDOMEN: Abdominal exam reveals normal bowel sounds. Non-tender and non- distended. No evidence of peritonitis. EXTREMITITES: No clubbing, cyanosis, or edema. Objective - Vital Signs Vital signs: Vital Signs Temp 97.6 F 06/08/16 04:00 Pulse 95 06/08/16 04:00 Resp 18 06/08/16 04:00 BP 143/78 06/08/16 04:00 Pulse Ox 96 06/08/16 04:00 Intake & Output 06/07/16 06/08/16 06/08/16 18:59 06:59 18:59 Intake Total 1045 118 Output Total 850 550 200 Balance 195 -550 -82 Weight 72.4 kg Intake: IV 80 NS 80 Oral 965 118 Output: Urine 850 550 200 Other: Voiding Method Bedside Commode # Voids 1 1 - Labs CBC & Chem 7: 06/08/16 06:45 06/08/16 06:45 Labs: Abnormal Lab Results - Last 24 Hours (Table) 06/07/16 06/07/16 06/07/16 Range/Units 07:39 16:23 21:38 WBC 2.7 L (3.8-10.6) k/uL RBC 2.48 L (3.80-5.40) m/uL Hgb 7.7 L (11.4-16.0) gm/dL Hct 24.2 L (34.0-46.0) % RDW 18.7 H (11.5-15.5) % Plt Count 129 L (150-450) k/uL Lymphocytes # 0.4 L (1.0-4.8) k/uL Potassium (3.5-5.1) mmol/L BUN (7-17) mg/dL Creatinine (0.52-1.04) mg/dL Glucose (74-99) mg/dL POC Glucose (mg/dL) 294 H 119 H (75-99) mg/dL Calcium (8.4-10.2) mg/dL AST (14-36) U/L ALT (9-52) U/L Alkaline Phosphatase (38-126) U/L Albumin (3.5-5.0) g/dL 06/08/16 06/08/16 06/08/16 Range/Units 06:45 06:45 06:52 WBC 2.4 L (3.8-10.6) k/uL RBC 2.26 L (3.80-5.40) m/uL Hgb 7.5 L (11.4-16.0) gm/dL Hct 21.9 L (34.0-46.0) % RDW 20.3 H (11.5-15.5) % Plt Count 145 L (150-450) k/uL Lymphocytes # 0.4 L (1.0-4.8) k/uL Potassium 5.7 H (3.5-5.1) mmol/L BUN 45 H (7-17) mg/dL Creatinine 4.50 H (0.52-1.04) mg/dL Glucose 119 H (74-99) mg/dL POC Glucose (mg/dL) 117 H (75-99) mg/dL Calcium 8.1 L (8.4-10.2) mg/dL AST 42 H (14-36) U/L ALT 69 H (9-52) U/L Alkaline Phosphatase 160 H (38-126) U/L Albumin 3.4 L (3.5-5.0) g/dL Assessment and Plan Plan: Assessment: #1. End-stage renal disease maintained on hemodialysis on a Thursday schedule. #2. Hyperkalemia secondary to chronic kidney disease as well as hyperglycemia. Questionable underlying GI bleed may also be a contributor factor. #3. Acute anemia. Hemoglobin 6.7 on admission. Status post 1 unit of packed red blood cell transfusion on June 06. #4. Hypertension with chronic kidney disease. #5. Chronic kidney disease mineral bone disease. #6. Tachyarrhythmia. Possibly related to anemia. #7. Insulin-dependent diabetes mellitus. Plan: Monitor hemoglobin and transfuse as needed. Hemodialysis Thursday with goal 3 L ultrafiltration. Maintain Aranesp. Maintain PhosLo with meals. Nephrocaps daily. Repeat potassium at 6 PM today. Advised tight blood sugar control.
[2016-06-08 11:52] LABS: Glucose,Whole Blood 138 mg/dL (75-99)
[2016-06-08] MEDS: FOLIC ACID-VIT B COMPLEX-VIT C 1 CAP PO SCH (12:23)
[2016-06-08] MEDS: MAGNESIUM OXIDE 250 MG TAB PO SCH (12:23)
[2016-06-08] MEDS: traMADol 50 MG TAB PO PRN (15:37)
[2016-06-08 16:44] LABS: Glucose,Whole Blood 123 mg/dL (75-99)
--- NOTE | 2016-06-08 18:46 | CT ---
EXAMINATION TYPE: CT chest wo con DATE OF EXAM: 06/08/2016 6:36 PM COMPARISON: NONE HISTORY: Difficulty breathing CT DLP: mGycm Automated exposure control for dose reduction was used. FINDINGS: Multiple axial sections were obtained from the diaphragm to the lung apices with no contrast. Heart is enlarged. There is mild pericardial effusion. There are no hilar masses. There is a small hi atal hernia. I see no mediastinal adenopathy. There is some patchy interstitial and nodular infiltrat e in the mid and upper lung jara. The lung bases are clear. There is no pleural effusion. IMPRESSION: CARDIOMEGALY WITH PERICARDIAL EFFUSION. BILATERAL UPPER LOBE NONSPECIFIC PULMONARY INFILTRATES. KENYETTA L ANNULUS CALCIFICATION NOTED.
[2016-06-08] MEDS: CYCLOBENZAPRINE 5 MG TAB PO SCH (20:24)
[2016-06-08] MEDS: ATORVASTATIN 40 MG TAB PO SCH (20:24)
[2016-06-08] MEDS: BUDESONIDE 0.5 MG/2 ML NEBU INHALATION SCH (20:35)
[2016-06-08 21:54] LABS: Glucose,Whole Blood 195 mg/dL (75-99)
[2016-06-08] MEDS: AZITHROMYCIN 500 MG in SODIUM CHLORIDE 0.9% 250 ML IVPB SCH (22:55)
[2016-06-09] MEDS: HYDROmorphone 1 MG/ML 1 ML SYRINGE IVP PRN ×6 (00:35→23:41)
[2016-06-09] MEDS: PROMETHAZINE 6.25MG/5ML 147.5 MG/118 ML BOTTLE PO PRN ×6 (00:36→23:41)
[2016-06-09 06:19] LABS: Glucose,Whole Blood 125 mg/dL (75-99)
[2016-06-09] MEDS: INSULIN NPL/INSULIN LISPRO 100 UNIT/ML 10 ML VIAL (Humalog 75/25) SQ SCH ×3 (06:57→18:04)
[2016-06-09] MEDS: CALCIUM ACETATE 667 MG CAP PO SCH ×3 (06:57→18:06)
[2016-06-09] MEDS: PANTOPRAZOLE 40 MG TABLET PO SCH (06:57)
[2016-06-09] MEDS: CALCIUM CARBONATE 500 MG CHEWABLE PO SCH ×3 (06:57→18:06)
[2016-06-09 07:23] LABS: Calcium 8.2 mg/dL (8.4-10.2); Potassium 5.7 mmol/L (3.5-5.1)
[2016-06-09] MEDS: FUROSEMIDE 40 MG TAB PO SCH ×2 (08:20→18:06)
[2016-06-09] MEDS: amLODIPine 10 MG TAB PO SCH (08:20)
[2016-06-09] MEDS: hydrALAZINE HCL 50 MG TAB PO SCH ×3 (08:20→19:56)
[2016-06-09] MEDS: cloNIDine HCL 0.1 MG TAB PO SCH ×3 (08:20→19:57)
[2016-06-09] MEDS: INSULIN GLARGINE 100 UNIT/ML 10 ML VIAL SQ SCH (08:21)
[2016-06-09] MEDS: SODIUM BICARBONATE TAB 650 MG TAB PO SCH ×2 (08:21→19:56)
[2016-06-09] MEDS: BUDESONIDE 0.5 MG/2 ML NEBU INHALATION SCH ×2 (08:37→20:11)
[2016-06-09 09:07] LABS: Anisocytosis Moderate; Basophils % (A) 1 %; CH 32.2; CHCM 32.7; Eosinophils # (A) 0.1 k/uL (0-0.7); Eosinophils % (A) 3 %; HCT 21.5 % (34.0-46.0); HDW 4.17; HGB 7.2 gm/dL (11.4-16.0); Hypochromasia Moderate; Luc # (Auto) 0.03; Luc % (Auto) 1; Lymphocytes # (A) 0.4 k/uL (1.0-4.8); Lymphocytes % (A) 15 %; MCH 33.1 pg (25.0-35.0); MCHC 33.4 g/dL (31.0-37.0); MCV 99.1 fL (80.0-100.0); Macrocytosis Slight; Mean Platelet Volume 7.3; Monocytes # (A) 0.2 k/uL (0-1.0); Monocytes % (A) 8 %; Neutrophils # (A) 1.9 k/uL (1.3-7.7); Neutrophils % (A) 73 %; Poikilocytosis Moderate; RBC 2.17 m/uL (3.80-5.40); RDW 20.4 % (11.5-15.5); WBC 2.6 k/uL (3.8-10.6); WBC (Perox) 2.74
--- NOTE | 2016-06-09 09:10 | P.PN ---
Subjective Patient is seen in follow-up for end-stage renal disease. She is maintained on hemodialysis on a Thursday schedule. She presented with tachyarrhythmia as well as high blood pressure. She's been running low hemoglobin as an outpatient and has received multiple packed red blood cell transfusions as an outpatient. She also underwent a recent bone marrow biopsy. Her hemoglobin was 6.7 at the time of admission and she did receive 1 unit of packed red blood cell transfusion this admission. Hemoglobin 7.5 as of yesterday. Currently resting in bed. States her nose is quite dry and does have epistaxis at times. Vital signs are stable. General: The patient appeared well nourished and normally developed. HEENT: Head exam is unremarkable. Neck is without jugular venous distension. LUNGS: Lungs are clear to auscultation and percussion. Breath sounds decreased. HEART: Rate and Rhythm are regular. First and second heart sounds normal. No murmurs, rubs or gallops. ABDOMEN: Abdominal exam reveals normal bowel sounds. Non-tender and non- distended. No evidence of peritonitis. EXTREMITITES: No clubbing, cyanosis, or edema. Objective - Vital Signs Vital signs: Vital Signs Temp 97.8 F 06/09/16 08:10 Pulse 89 06/09/16 08:10 Resp 16 06/09/16 08:18 BP 145/71 06/09/16 08:10 Pulse Ox 96 06/09/16 08:10 Intake & Output 06/08/16 06/09/16 06/09/16 18:59 06:59 18:59 Intake Total 258 880 180 Output Total 950 200 Balance -692 680 180 Weight 72.4 kg 73.4 kg Intake: IV 140 160 NS 140 160 Intake, IV Titration 300 Amount Azithromycin 500 mg In 250 Sodium Chloride 0.9% 250 ml @ 125 mls/hr IVPB DAILY@2230 [facility] Rx#: [id number] cefTRIAXone 1,000 mg In 50 Sodium Chloride 0.9% 50 ml @ 100 mls/hr IVPB Q24H [facility] Rx#:[id number] Oral 118 420 180 Output: Urine 750 200 Emesis 200 Other: Voiding Method Bedside Commode Toilet Toilet # Voids 1 - Labs CBC & Chem 7: 06/08/16 06:45 06/09/16 06:34 Labs: Abnormal Lab Results - Last 24 Hours (Table) 06/08/16 06/08/16 06/08/16 Range/Units 11:51 16:42 20:47 Potassium 5.2 H (3.5-5.1) mmol/L BUN (7-17) mg/dL Creatinine (0.52-1.04) mg/dL Glucose (74-99) mg/dL POC Glucose (mg/dL) 138 H 123 H (75-99) mg/dL Calcium (8.4-10.2) mg/dL 06/08/16 06/09/16 06/09/16 Range/Units 21:52 06:17 06:34 Potassium 5.7 H (3.5-5.1) mmol/L BUN 63 H (7-17) mg/dL Creatinine 5.71 H* (0.52-1.04) mg/dL Glucose 115 H (74-99) mg/dL POC Glucose (mg/dL) 195 H 125 H (75-99) mg/dL Calcium 8.2 L (8.4-10.2) mg/dL Assessment and Plan Plan: Assessment: #1. End-stage renal disease maintained on hemodialysis on a Thursday schedule. #2. Hyperkalemia secondary to chronic kidney disease as well as hyperglycemia. Questionable underlying GI bleed may also be a contributor factor. #3. Acute anemia. Hemoglobin 6.7 on admission. Status post 1 unit of packed red blood cell transfusion on June 06. #4. Hypertension with chronic kidney disease. #5. Chronic kidney disease mineral bone disease. #6. Tachyarrhythmia. Possibly related to anemia. #7. Insulin-dependent diabetes mellitus. #8. Mild pericardial effusion noted on chest CT done this admission. Heart echocardiogram from September 2015 revealed the same. Plan: Monitor hemoglobin and transfuse as needed. Hemodialysis today and will repeat again tomorrow. Maintain Aranesp. Maintain PhosLo with meals. Nephrocaps daily. Advised tight blood sugar control.
--- NOTE | 2016-06-09 09:16 | PN ---
ADDENDUM: Would add inhaled steroids to her regimen, given that her hemoptysis may be from airway inflammation.
--- NOTE | 2016-06-09 10:07 | PN ---
DATE OF SERVICE: 06/08/2016 The patient has remained hemodynamically stable. She does not complain of any shortness of breath today. On physical examination, her blood pressure 170/70, respiratory rate of 19, pulse 85, temperature 97.6, O2 sat on 2 liters by nasal cannula is 98%. HEENT is unremarkable. Chest reveals occasional crackles in the right base. Cardiovascular system reveals S1 and S2. ABDOMEN: Soft. There is no edema. IMPRESSION: 1. Hemoptysis secondary to airway inflammation. 2. Chronic renal failure. 3. Recurrent pancreatitis. 4. Purulent tracheobronchitis. 5. Triglyceridemia. Continue antibiotics. Increase her activity level. We will order a CT scan of the chest to further evaluate her recent history of hemoptysis. Depending on how she does, we shall make further changes to her care.
--- NOTE | 2016-06-09 11:06 | PN ---
SUBJECTIVE: This is a 50-year-old white female with cardiomegaly, pericardial effusion, bilateral upper lobe, nonspecific, pulmonary infiltrates. The patient remains on broad-spectrum antibiotics, with cough, congestion persists, but is slightly improved. CARDIOVASCULAR: S1, S2. LUNGS: Scattered wheeze. HEMATOLOGIC: Negative Homans, temperature 97.5, pulse is 80s, respiratory rate 18 to 20, blood pressure is 149 to 170/70 to 74, O2 is 98% on 3 liters. ASSESSMENT: 1. Right upper lobe pneumonia. . 2. Chronic obstructive pulmonary disease exacerbation. 3. Acute on chronic renal insufficiency. 4. Hyperkalemia. 5. Pancytopenia for which Dr. Garay will be consulted. 6. Hyperkalemia. 7. Acute on chronic renal insufficiency. Continue with dialysis as ordered. Please see further orders. She has moderate protein calorie malnutrition. Continue with dietary consult and protein calorie counts.
[2016-06-09 12:05] LABS: Glucose,Whole Blood 132 mg/dL (75-99)
[2016-06-09] MEDS: MAGNESIUM OXIDE 250 MG TAB PO SCH (12:13)
[2016-06-09] MEDS: FOLIC ACID-VIT B COMPLEX-VIT C 1 CAP PO SCH (12:13)
--- NOTE | 2016-06-09 15:15 | P.PN ---
Subjective A 50-year-old female being seen with the attending on rounds this morning. Currently sitting up on the edge of the bed. This been no new events. Patient has end-stage renal disease maintained on hemodialysis on a Thursday schedule. Hemoglobin this morning is 7.2 7.5 yesterday patient's currently denying any dizziness lightheadedness or chest pain or shortness of breath. Patient states that when she blows her nose she noted that there was some epistasis noted currently no active bleeding noted no hemoptysis noted Objective - Vital Signs Vital signs: Vital Signs Temp 97.8 F 06/09/16 08:10 Pulse 82 06/09/16 11:40 Resp 12 06/09/16 11:40 BP 133/71 06/09/16 11:40 Pulse Ox 97 06/09/16 11:40 Intake & Output 06/08/16 06/09/16 06/09/16 18:59 06:59 18:59 Intake Total 258 880 360 Output Total 950 200 200 Balance -692 680 160 Weight 72.4 kg 73.4 kg Intake: IV 140 160 NS 140 160 Intake, IV Titration 300 Amount Azithromycin 500 mg In 250 Sodium Chloride 0.9% 250 ml @ 125 mls/hr IVPB DAILY@2230 [facility] Rx#: [id number] cefTRIAXone 1,000 mg In 50 Sodium Chloride 0.9% 50 ml @ 100 mls/hr IVPB Q24H [facility] Rx#:[id number] Oral 118 420 360 Output: Urine 750 200 200 Emesis 200 Other: Voiding Method Bedside Commode Toilet Toilet # Voids 1 - Exam Physical exam 50-year-old female sitting up on the edge of the bed does not appear in any acute distress. Lungs essentially clear with adequate air movement heart S1-S2 audible regular monitor sinus Abdomen soft nontender Extremities no edema - Labs CBC & Chem 7: 06/09/16 06:34 06/09/16 06:34 Labs: Abnormal Lab Results - Last 24 Hours (Table) 06/08/16 06/08/16 06/08/16 Range/Units 16:42 20:47 21:52 WBC (3.8-10.6) k/uL RBC (3.80-5.40) m/uL Hgb (11.4-16.0) gm/dL Hct (34.0-46.0) % RDW (11.5-15.5) % Plt Count (150-450) k/uL Lymphocytes # (1.0-4.8) k/uL Potassium 5.2 H (3.5-5.1) mmol/L BUN (7-17) mg/dL Creatinine (0.52-1.04) mg/dL Glucose (74-99) mg/dL POC Glucose (mg/dL) 123 H 195 H (75-99) mg/dL Calcium (8.4-10.2) mg/dL 06/09/16 06/09/16 06/09/16 Range/Units 06:17 06:34 06:34 WBC 2.6 L (3.8-10.6) k/uL RBC 2.17 L (3.80-5.40) m/uL Hgb 7.2 L (11.4-16.0) gm/dL Hct 21.5 L (34.0-46.0) % RDW 20.4 H (11.5-15.5) % Plt Count 134 L (150-450) k/uL Lymphocytes # 0.4 L (1.0-4.8) k/uL Potassium 5.7 H (3.5-5.1) mmol/L BUN 63 H (7-17) mg/dL Creatinine 5.71 H* (0.52-1.04) mg/dL Glucose 115 H (74-99) mg/dL POC Glucose (mg/dL) 125 H (75-99) mg/dL Calcium 8.2 L (8.4-10.2) mg/dL 06/09/16 Range/Units 11:43 WBC (3.8-10.6) k/uL RBC (3.80-5.40) m/uL Hgb (11.4-16.0) gm/dL Hct (34.0-46.0) % RDW (11.5-15.5) % Plt Count (150-450) k/uL Lymphocytes # (1.0-4.8) k/uL Potassium (3.5-5.1) mmol/L BUN (7-17) mg/dL Creatinine (0.52-1.04) mg/dL Glucose (74-99) mg/dL POC Glucose (mg/dL) 132 H (75-99) mg/dL Calcium (8.4-10.2) mg/dL Assessment and Plan Plan: Present on admission severe electrolyte abnormality hyperkalemia End-stage renal disease hemodialysis dependent Present on admission sinus tachycardic suspect due to anemia Episode prior to omission of hemoptysis with improved A recent treatment for an upper respiratory infection just completed a course of Z-Travis earlier in the week Prior to admission hypertension urgency while at the dialysis center Lifelong nonsmoker Anemia suspect iron deficiency Type 2 diabetes non-insulin History of a pancreatic resection [id number] Chronic kidney disease minimal bone Acute anemia necessitating 1 unit packed red blood cells for hemoglobin of 6.7 Plan DVT and GI prophylaxis Continue with recommendations by nephrology and cardiology service We'll repeat the labs in the morning Resume home meds as appropriate DVT and GI prophylaxis Further recommendations pending will follow The above dictated assessment and findings were discussed with Dr. Bragg Impression and the plan of care have been dictated as directed. Shakira Dias nurse practitioner acting as a scribe for dr Bragg
--- NOTE | 2016-06-09 15:43 | P.PN ---
Subjective Principal diagnosis: This is a 50-year-old female with end-stage renal disease on hemodialysis, hypertension, hyperlipidemia, diabetes, who presented to the hospital with symptoms of chest congestion and productive cough. She did have some associated shortness of breath. During dialysis patient was noted to be hypertensive and tachycardic and for this reason she was admitted to the hospital in [place] and transferred here. Patient underwent dialysis and also receive a unit of packed red blood cells for hemoglobin of 6.7. She is undergoing dialysis today at the time of my examination. Patient was instructed by Dr. Dumas on how to take her hydralazine in relation to her dialysis to maintain a stable blood pressure. Objective - Vital Signs Vital signs: Vital Signs Temp 97.8 F 06/09/16 08:10 Pulse 82 06/09/16 11:40 Resp 12 06/09/16 11:40 BP 133/71 06/09/16 11:40 Pulse Ox 97 06/09/16 11:40 Intake & Output 06/08/16 06/09/16 06/09/16 18:59 06:59 18:59 Intake Total 258 880 360 Output Total 950 200 200 Balance -692 680 160 Weight 72.4 kg 73.4 kg Intake: IV 140 160 NS 140 160 Intake, IV Titration 300 Amount Azithromycin 500 mg In 250 Sodium Chloride 0.9% 250 ml @ 125 mls/hr IVPB DAILY@2230 [facility] Rx#: [id number] cefTRIAXone 1,000 mg In 50 Sodium Chloride 0.9% 50 ml @ 100 mls/hr IVPB Q24H [facility] Rx#:[id number] Oral 118 420 360 Output: Urine 750 200 200 Emesis 200 Other: Voiding Method Bedside Commode Toilet Toilet # Voids 1 - Exam PHYSICAL EXAMINATION: HEENT: Head is atraumatic, normocephalic. Pupils equal, round. Neck is supple. There is no elevated jugular venous pressure. HEART EXAMINATION: Heart S1, S2 normal. No murmur or gallop heard. CHEST EXAMINATION: Lungs reveal fine crackles bilaterally to the bases. ABDOMEN: Soft, nontender. Bowel sounds are heard. No organomegaly noted. EXTREMITIES: 2+ peripheral pulses with no evidence of peripheral edema and no calf tenderness noted. NEUROLOGIC patient is awake, alert and oriented -3. . - Labs CBC & Chem 7: 06/09/16 06:34 06/09/16 06:34 Labs: Abnormal Lab Results - Last 24 Hours (Table) 06/08/16 06/08/16 06/08/16 Range/Units 16:42 20:47 21:52 WBC (3.8-10.6) k/uL RBC (3.80-5.40) m/uL Hgb (11.4-16.0) gm/dL Hct (34.0-46.0) % RDW (11.5-15.5) % Plt Count (150-450) k/uL Lymphocytes # (1.0-4.8) k/uL Potassium 5.2 H (3.5-5.1) mmol/L BUN (7-17) mg/dL Creatinine (0.52-1.04) mg/dL Glucose (74-99) mg/dL POC Glucose (mg/dL) 123 H 195 H (75-99) mg/dL Calcium (8.4-10.2) mg/dL 06/09/16 06/09/16 06/09/16 Range/Units 06:17 06:34 06:34 WBC 2.6 L (3.8-10.6) k/uL RBC 2.17 L (3.80-5.40) m/uL Hgb 7.2 L (11.4-16.0) gm/dL Hct 21.5 L (34.0-46.0) % RDW 20.4 H (11.5-15.5) % Plt Count 134 L (150-450) k/uL Lymphocytes # 0.4 L (1.0-4.8) k/uL Potassium 5.7 H (3.5-5.1) mmol/L BUN 63 H (7-17) mg/dL Creatinine 5.71 H* (0.52-1.04) mg/dL Glucose 115 H (74-99) mg/dL POC Glucose (mg/dL) 125 H (75-99) mg/dL Calcium 8.2 L (8.4-10.2) mg/dL 06/09/16 Range/Units 11:43 WBC (3.8-10.6) k/uL RBC (3.80-5.40) m/uL Hgb (11.4-16.0) gm/dL Hct (34.0-46.0) % RDW (11.5-15.5) % Plt Count (150-450) k/uL Lymphocytes # (1.0-4.8) k/uL Potassium (3.5-5.1) mmol/L BUN (7-17) mg/dL Creatinine (0.52-1.04) mg/dL Glucose (74-99) mg/dL POC Glucose (mg/dL) 132 H (75-99) mg/dL Calcium (8.4-10.2) mg/dL Assessment and Plan (1) ESRD (end stage renal disease) on dialysis Status: Acute (2) HTN (hypertension) Status: Acute (3) Hyperlipemia Status: Acute (4) Tachycardia Status: Acute (5) Diabetes Status: Acute Plan: From cardiology's perspective, patient has been advised regarding the use of an additional hydralazine pre-dialysis. Her blood pressure today is been stable. From cardiology's perspective once she is cleared for discharge this is okay with us as well. DNP note has been reviewed, I agree with a documented findings and plan of care. Patient was seen and examined.
[2016-06-09] MEDS ORDERED: GELATIN SPONGE,ABSORB (SMALL) 1 EACH SPONGE ONE (16:45)
[2016-06-09 17:02] LABS: Glucose,Whole Blood 92 mg/dL (75-99)
--- NOTE | 2016-06-09 19:23 | P.CONS ---
History of Present Illness - Reason for Consult Consult date: 06/09/16 Refractory anemia - History of Present Illness Ms Desouza is a pleasant WF, with multiple medical problems, who was seen by Dr De in 2009-, for low blood counts. Per the pt , this related to her WBC. She had a bone marrow done, and states that she was told she had " less than 5% risk of cancer". She did not f/u with Hem-Onc since, till 07/23. She was admitted to [facility] with sepsis due to toe infection. She developed pancytopenia, which was felt to be due to sepsis, with counts showing some improvement as she recovered. She has a h/o severe pancreatitis resulting in renal failure in 2009, requiring HD for a few mths. She developed AUDREY in 07/23 again, but recovered. She was placed back on HD in 11/23. She was noted to have a Hgb of 6.9 on 01/10/16 and received PRBC transfusion. Hgb fell to 6.2 again on 03/12/16 requiring repeat transfusion. She denied obvious bleeding. She was thus referred here for further evaluation and recommendations. Records and labs from 07/23 and other admissions to [facility] since were reviewed. Her bone marrow from 2010 had shown dyspoeitic changes. Additional labs were ordered which were negative other than a mild kappa elevation vs lambda with a ratio of 2.49 She is being evaluated for a renal transplant at [facility]. Thus a repeat bone marrow was done on 05/19/16, again showing mild dyspoeitic changes, with no evidence of progression. It was felt that her anemia was due to a combination of underlying mild MDS and AOCKD. She is on hemodialysis on a Thursday schedule. Patient presented to the hospital after she noticed increase in her heart rate as well as systolic blood pressure greater than 200 when she was at the dialysis center. Her potassium was elevated at 7.1 and she did undergo urgent hemodialysis with improvement in her K+. She's also been having symptoms of upper respiratory infection and has just completed course of Z-Travis earlier this week. She also noticed hemoptysis, which was mild and has resolved. Hgb on admission was 7.3, and then fell to 6.7. She is s/p 1 U PRBC The consult was thus placed for further evaluation and recommendations. Review of Systems Constitutional: Reports fatigue, Reports malaise Eyes: denies blurred vision, denies pain Ears: deny: decreased hearing, ear discharge, earache, tinnitus Ears, nose, mouth and throat: Denies headache, Denies sore throat Cardiovascular: Reports as per HPI, Reports chest pain, Reports high blood pressure, Reports palpitations, Reports shortness of breath Respiratory: Reports as per HPI, Reports dyspnea, Reports pain Gastrointestinal: Denies abdominal pain, Denies diarrhea, Denies nausea, Denies vomiting Genitourinary: Reports as per HPI (ESRD on HD) Menstruation: Reports postmenopausal Musculoskeletal: Reports muscle weakness Integumentary: Denies pruritus, Denies rash Neurological: Reports weakness Psychiatric: Reports depression Endocrine: Denies fatigue, Denies weight change Hematologic/Lymphatic: Reports as per HPI Past Medical History Past Medical History: Diabetes Mellitus, Hyperlipidemia, Hypertension, Renal Disease Additional Past Medical History / Comment(s): Recent bronchitis-completed ABX, hypertriglyceridemia-induced acute pancreatitis, necrotizing pancreatitis-sent to [facility], hemodialysis for acute kidney injury 2 months in 2009 after pancreatic surgery, 11/2015 diagnosed with chronic kidney disease-hemodialysis //, IDDM type II, chronic anemia, occasional back pain, carter's palsey x2, past L leg fx. History of Any Multi-Drug Resistant Organisms: None Reported Past Surgical History: Uterine Ablation Additional Past Surgical History / Comment(s): pancreatic resection at [facility] 2009, bone marrow biopsies-last one 05/19/16,. dialysis chest port x 2 with removals, Left arm shunt placement for dialysis - December 2015 Past Anesthesia/Blood Transfusion Reactions: No Reported Reaction Additional Past Anesthesia/Blood Transfusion Reaction / Comm: Pt has received blood transfusions without reaction-last transfusion 06/04/16. Past Psychological History: No Psychological Hx Reported Additional Psychological History / Comment(s): Pt resides with spouse and 1 adult manish. She is independent. She uses no assistive device. She drives. Smoking Status: Never smoker Past Alcohol Use History: None Reported Additional Past Alcohol Use History / Comment(s): Patient is a lifelong nonsmoker. She denies any medical marijuana, marijuana, street drug use. She drinks alcohol on a very rare basis. She lives at home with her and 21- year-old daughter. There is a cat in the home. 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 Past Drug Use History: None Reported - Past Family History Brother(s) Family Medical History: No Reported History Mother Family Medical History: Cancer, Diabetes Mellitus Additional Family Medical History / Comment(s): Mother of throat cancer at the age of 63 yrs. She was a smoker. Father Family Medical History: Coronary Artery Disease (CAD), Hyperlipidemia, Hypertension Additional Family Medical History / Comment(s): Father is 70 yrs old. Medications and Allergies Home Medications Medication Instructions Recorded Confirmed Type Atorvastatin [Lipitor] 40 mg PO HS 09/14/15 06/05/16 History Cyclobenzaprine [Flexeril] 5 mg PO HS 09/14/15 06/05/16 History Magnesium Gluconate [Magonate] 500 mg PO BID 09/14/15 06/05/16 History Omeprazole [PriLOSEC] 20 mg PO DAILY 09/14/15 06/05/16 History Sulfacetamide 10% Ophth Soln 1 - 2 drop BOTH EYES BID PRN 09/14/15 06/05/16 History [Bleph-10] Calcium Carbonate [Tums] 1,500 mg PO AC-TID 10/29/15 06/05/16 History Furosemide [Lasix] 40 mg PO BID 03/12/16 06/05/16 History Lidocaine 4% Cream [Lmx 4] 1 applic TOPICAL TUTHSA 03/12/16 06/05/16 History cloNIDine HCL [Catapres] 0.3 mg PO TID 03/12/16 06/05/16 History traMADol HCl [Ultram] 50 mg PO TID PRN 03/12/16 06/05/16 History Insulin Glargine [Lantus] 70 unit SQ QAM 04/18/16 06/05/16 History Calcitriol [Rocaltrol] 0.25 mcg PO WEEKLY 05/14/16 06/05/16 History Calcium Acetate [Phoslo] 1,334 mg PO DIRECTED PRN 05/14/16 06/05/16 History Calcium Acetate [Phoslo] 667 mg PO TID 05/14/16 06/05/16 History Ergocalciferol (Vitamin D2) 50,000 unit PO SUTUTH 05/14/16 06/05/16 History [Drisdol] Iron Infusion 1 dose IV WEEKLY PRN 05/14/16 06/05/16 History Prochlorperazine [Compazine] 5 mg PO BID PRN 05/14/16 06/05/16 History Prorenal Vitamin 1 tab PO DAILY 05/14/16 06/05/16 History amLODIPine [Norvasc] 10 mg PO QAM 05/14/16 06/05/16 History Albuterol Sulfate [Proair Hfa] 2 puff INHALATION RT-Q4H PRN 06/05/16 06/05/16 History Insulin NPL/Insulin Lispro 16 unit SQ AC-TID 06/05/16 06/05/16 History [humaLOG MIX 75-25 VIAL] Allergies Allergy/AdvReac Type Severity Reaction Status Date / Time ciprofloxacin [From Cipro] Allergy AFFECTED Verified 06/05/16 10:51 EYESIGHT ciprofloxacin HCl Allergy AFFECTED Verified 06/05/16 10:51 [From Cipro] EYESIGHT Iodinated Contrast Media - Allergy RENAL Verified 06/05/16 10:51 Oral and FAILURE Physical Exam Vitals: Vital Signs Temp Pulse Resp BP Pulse Ox 06/09/16 11:40 82 12 133/71 97 06/09/16 08:18 16 06/09/16 08:10 97.8 F 89 16 145/71 96 06/09/16 04:00 97.5 F L 102 H 17 164/75 94 L 06/09/16 00:00 97.3 F L 83 16 151/72 95 06/08/16 20:00 97.5 F L 89 17 155/80 99 Intake and Output 06/09/16 06/09/16 06/09/16 06:59 14:59 22:59 Intake Total 880 360 Output Total 200 Balance 880 160 Intake: IV 160 NS 160 Intake, IV Titration 300 Amount Azithromycin 500 mg In 250 Sodium Chloride 0.9% 250 ml @ 125 mls/hr IVPB DAILY@2230 ANNI Rx#: [id number] cefTRIAXone 1,000 mg In 50 Sodium Chloride 0.9% 50 ml @ 100 mls/hr IVPB Q24H ANNI Rx#:[id number] Oral 420 360 Output: Urine 200 Other: Voiding Method Toilet Toilet Weight 73.4 kg - Constitutional General appearance: no acute distress - EENT Eyes: EOMI, PERRLA ENT: hearing grossly normal, normal oropharynx - Neck Neck: no lymphadenopathy - Respiratory Respiratory: bilateral: CTA - Cardiovascular Rhythm: regular Heart sounds: normal: S1, S2 - Gastrointestinal General gastrointestinal: normal bowel sounds, soft - Integumentary Integumentary: normal - Neurologic Neurologic: CNII-XII intact - Musculoskeletal Musculoskeletal: generalized weakness, strength equal bilaterally - Psychiatric Psychiatric: A&O x's 3, appropriate affect Results CBC & Chem 7: 06/09/16 06:34 06/09/16 06:34 Labs: Abnormal Lab Results - Last 24 Hours (Table) 06/08/16 06/08/16 06/09/16 Range/Units 20:47 21:52 06:17 WBC (3.8-10.6) k/uL RBC (3.80-5.40) m/uL Hgb (11.4-16.0) gm/dL Hct (34.0-46.0) % RDW (11.5-15.5) % Plt Count (150-450) k/uL Lymphocytes # (1.0-4.8) k/uL Potassium 5.2 H (3.5-5.1) mmol/L BUN (7-17) mg/dL Creatinine (0.52-1.04) mg/dL Glucose (74-99) mg/dL POC Glucose (mg/dL) 195 H 125 H (75-99) mg/dL Calcium (8.4-10.2) mg/dL 06/09/16 06/09/16 06/09/16 Range/Units 06:34 06:34 11:43 WBC 2.6 L (3.8-10.6) k/uL RBC 2.17 L (3.80-5.40) m/uL Hgb 7.2 L (11.4-16.0) gm/dL Hct 21.5 L (34.0-46.0) % RDW 20.4 H (11.5-15.5) % Plt Count 134 L (150-450) k/uL Lymphocytes # 0.4 L (1.0-4.8) k/uL Potassium 5.7 H (3.5-5.1) mmol/L BUN 63 H (7-17) mg/dL Creatinine 5.71 H* (0.52-1.04) mg/dL Glucose 115 H (74-99) mg/dL POC Glucose (mg/dL) 132 H (75-99) mg/dL Calcium 8.2 L (8.4-10.2) mg/dL Chest x-ray: report reviewed CT scan - chest: report reviewed Assessment and Plan (1) Anemia Narrative/Plan: The patient has chronic refractory anemia, that has been progressive over the last couple of years. In the courses as noted in the HPI. The patient has had bone marrow aspiration biopsies 2, initially in 2010 and then recently. These both showed mildly dyspoietic changes . The degree of anemia, however is more severe than expected with this bone marrow morphology. 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 In this situation, the management would consist of optimizing erythropoietin supplementation, as well as blood transfusions as needed. Overall the patient has been symptomatically stable, with a hemoglobin in the 7+ range The case was discussed with the nephrology detail. At this time, the dose off her DEVENDRA preparation that his be used in the outpatient setting, is being progressively increased. If her response is still suboptimal despite maximization of the dose, change to a different DEVENDRA preparation can be tried. I agree with the blood transfusion that was given in the meantime. Continue to monitor, and transfuse as needed for hemoglobin less than 7. Status: Acute Plan: The patient is feeling better with the sensation of for emergency dialysis, as well as additional dialysis treatments. Per my discussion with nephrology, it is up sure that she was fluid overloaded. Her chest x-ray, as well as computed tomography scan of the chest did show some nonspecific infiltrates in the lung, which could represent edema, though pneumonia was not ruled out. The patient is being covered with antibiotics for CAP. Under 4 to the admitting service and other consultants for management of this ,and other medical issues.
[2016-06-09] MEDS: CYCLOBENZAPRINE 5 MG TAB PO SCH (19:56)
[2016-06-09] MEDS: ATORVASTATIN 40 MG TAB PO SCH (19:56)
[2016-06-09 20:58] LABS: Glucose,Whole Blood 125 mg/dL (75-99)
[2016-06-09] MEDS: AZITHROMYCIN 500 MG in SODIUM CHLORIDE 0.9% 250 ML IVPB SCH (22:42)
[2016-06-10] MEDS: PROMETHAZINE 6.25MG/5ML 147.5 MG/118 ML BOTTLE PO PRN ×2 (04:30→12:54)
[2016-06-10] MEDS: HYDROmorphone 1 MG/ML 1 ML SYRINGE IVP PRN (04:30)
[2016-06-10 05:57] LABS: Glucose,Whole Blood 87 mg/dL (75-99)
[2016-06-10 06:26] LABS: Anisocytosis Slight; Basophils % (A) 1 %; CH 32.1; CHCM 33.6; Eosinophils # (A) 0.1 k/uL (0-0.7); Eosinophils % (A) 3 %; HCT 24.1 % (34.0-46.0); HDW 4.31; HGB 8.1 gm/dL (11.4-16.0); Hypochromasia Slight; Luc # (Auto) 0.07; Luc % (Auto) 2; Lymphocytes # (A) 0.5 k/uL (1.0-4.8); Lymphocytes % (A) 15 %; MCH 32.1 pg (25.0-35.0); MCHC 33.4 g/dL (31.0-37.0); MCV 96.2 fL (80.0-100.0); Macrocytosis Slight; Mean Platelet Volume 7.7; Monocytes # (A) 0.2 k/uL (0-1.0); Monocytes % (A) 6 %; Neutrophils # (A) 2.3 k/uL (1.3-7.7); Neutrophils % (A) 73 %; Poikilocytosis Moderate; RBC 2.51 m/uL (3.80-5.40); RDW 19.1 % (11.5-15.5); WBC 3.1 k/uL (3.8-10.6); WBC (Perox) 3.19
[2016-06-10 06:48] LABS: Calcium 8.6 mg/dL (8.4-10.2); Potassium 5.6 mmol/L (3.5-5.1)
[2016-06-10] MEDS: CALCIUM CARBONATE 500 MG CHEWABLE PO SCH ×3 (07:01→17:10)
[2016-06-10] MEDS: INSULIN NPL/INSULIN LISPRO 100 UNIT/ML 10 ML VIAL (Humalog 75/25) SQ SCH ×2 (07:01→12:55)
[2016-06-10] MEDS: CALCIUM ACETATE 667 MG CAP PO SCH ×3 (07:02→17:10)
[2016-06-10] MEDS: PANTOPRAZOLE 40 MG TABLET PO SCH (07:03)
--- NOTE | 2016-06-10 07:57 | PN ---
DATE OF SERVICE: 06/09/2016 Ms. Sara Desouza is seen, evaluated, and examined. She is clinically doing better in terms of breathing. The patient is being monitored by hematology service for severe anemia. From respiratory standpoint, she is doing well, awake and alert. Patient underwent a CT scan of the chest, which revealed nonspecific pulmonary infiltrate, cardiomegaly, and a small pericardial effusion. Cardiovascular services already following this patient On examination, most recent vitals include blood pressure is 150/82, respiratory rate 12, pulse 88, temperature 97, sating 96% on 2 L oxygen. HEENT: Unremarkable. NECK: Supple. LUNGS: Good air entry bilaterally. HEART: Regular rate and rhythm. ABDOMEN: Soft. No rebound or rigidity. EXTREMITIES: +1 peripheral pulses. NEUROLOGICAL EXAMINATION: Otherwise, awake and alert. IMPRESSION: Hemoptysis, clinically and radiographically has been improving, likely related to multifactorial process including airway inflammation. Patient is on broad-spectrum antibiotics, breathing treatments. Will monitor and observe.
--- NOTE | 2016-06-10 08:52 | P.DS ---
Providers Date of admission: 06/05/16 12:06 Expected date of discharge: 06/10/16 Attending physician: David Smalls Consults: 06/05/16 18:17 Consult Physician Routine Consulting Provider: Aaron Bobby Consult Reason/Comments: pneumonia Do you want consulting provider notified?: Yes 06/05/16 18:18 Consult Physician Routine Consulting Provider: Alex Waddell Consult Reason/Comments: htn acceleration Do you want consulting provider notified?: Yes 06/08/16 09:13 Consult Physician Routine Consulting Provider: Cirilo Garay Consult Reason/Comments: pancytopenia Do you want consulting provider notified?: Yes Primary care physician: [facility] Course: 50-year-old female who presented on June 05 to the emergency room to be evaluated for elevated heart rate and elevated blood pressure during hemodialysis. has a history of renal failure is on hemodialysis. Patient was recommended that she be evaluated in the emergency room without being dialyzed. Patient came into the emergency room was found have an elevated potassium level of 7.1. Patient did not get her hemodialysis in the morning. Nephrology was notified patient was urgently dialyzed for the elevated potassium level patient was admitted to the services of the attending with pulmonary cardiology and nephrology participating in the care CAT scan of the chest was done on the showed bilateral lobe pulmonary infiltrates cardiomegaly cardiology did participate in the plan of care as well patient was monitoring patient for tachycardia and hypertension. Cardiology did discuss with the patient to take an additional dose of hydralazine before her dialysis. Antihypertensive meds were adjusted there was better blood pressure control patient was felt to be appropriate to be discharged from a cardiology perspective Pulmonary's treating patient for for nonspecific pulmonary infiltrate with hemoptysis which has resolved. The streaks of blood that the patient was experiencing with the sputum was likely related to respiratory inflammation. Patient was being treated for purulent tracheal bronchitis was initially placed on broad-spectrum antibiotics. There were no further episodes of hemoptysis Additionally hematology oncology did see the patient Dr. Garay. Patient was seen for anemia. Patient has chronic refractory anemia that has been progressive over the last couple years patient is being evaluated for potential renal transplant at [facility].anemia was due to a combination of underlying mild MDS and AOCKD. On the day of discharge the hemoglobin was 8.1 From all consulting physicians patient was felt to be appropriate to proceed with a discharge with the plan for follow-up as ordered. Patient was felt to be hemodynamically stable Impression discharge diagnosis Type 2 diabetes insulin requiring uncontrolled Present on admission anemia of chronic illness due to a combination of underlying mild MDS and AOCKD. Present on admission tracheal bronchitis Prior to admission recent treatment for an upper respiratory infection on a Z- Travis Prior to admission hypertension urgency Chronic refractory anemia Present on admission severe electrolyte abnormality hyperkalemia End-stage renal disease hemodialysis dependent Present on admission sinus tachycardic suspect due to anemia Episode prior to omission of hemoptysis with improved A recent treatment for an upper respiratory infection just completed a course of Z-Travis earlier in the week Prior to admission hypertension urgency while at the dialysis center prior to admission Lifelong nonsmoker Anemia suspect iron deficiency Type 2 diabetes non-insulin History of a pancreatic resection derw 2009 Chronic kidney disease minimal bone Acute anemia necessitating 1 unit packed red blood cells for hemoglobin of 6.7 End-stage renal disease maintained on hemodialysis on a Thursday schedule. . Hyperkalemia secondary to chronic kidney disease as well as hyperglycemia. Questionable underlying GI bleed may also be a contributor factor. Acute anemia. Hemoglobin 6.7 on admission. Status post 1 unit of packed red blood cell transfusion on June 06. Hypertension with chronic kidney disease. Chronic kidney disease mineral bone disease. . Present on admission Tachyarrhythmia. Possibly related to anemia. Insulin-dependent diabetes mellitus. . Mild pericardial effusion noted on chest CT done this admission. Heart echocardiogram from September 2015 revealed the same. The above dictated assessment and findings were discussed with dr smalls . Impression and the plan of care have been dictated as directed. Shakira Dias nurse practitioner acting as a scribe for dr smalls Plan - Discharge Summary New Discharge Prescriptions: Azithromycin [Zithromax] 500 mg PO HS #7 tab Folic Acid-Vit B Complex-Vit C [Nephrocaps] 1 each PO 1200 #30 cap hydrALAZINE HCL [Apresoline] 100 mg PO TID #180 tab traMADol HCl [Ultram] 50 mg PO TID PRN #30 tab PRN Reason: Pain Discharge Medication List Atorvastatin [Lipitor] 40 mg PO HS 09/14/15 [History] Cyclobenzaprine [Flexeril] 5 mg PO HS 09/14/15 [History] Magnesium Gluconate [Magonate] 500 mg PO BID 09/14/15 [History] Omeprazole [PriLOSEC] 20 mg PO DAILY 09/14/15 [History] Sulfacetamide 10% Ophth Soln [Bleph-10] 1 - 2 drop BOTH EYES BID PRN 09/14/15 [ History] Sodium Bicarbonate Tab 650 mg PO BID #60 tab 09/20/15 [Rx] Calcium Carbonate [Tums] 1,500 mg PO AC-TID 10/29/15 [History] Furosemide [Lasix] 40 mg PO BID 03/12/16 [History] Lidocaine 4% Cream [Lmx 4] 1 applic TOPICAL TUTHSA 03/12/16 [History] cloNIDine HCL [Catapres] 0.3 mg PO TID 03/12/16 [History] Insulin Glargine [Lantus] 70 unit SQ QAM 04/18/16 [History] Calcitriol [Rocaltrol] 0.25 mcg PO WEEKLY 05/14/16 [History] Calcium Acetate [PhosLo] 1,334 mg PO DIRECTED PRN 05/14/16 [History] Calcium Acetate [PhosLo] 667 mg PO TID 05/14/16 [History] Ergocalciferol (Vitamin D2) [Drisdol] 50,000 unit PO SUTUTH 05/14/16 [History] Iron Infusion 1 dose IV WEEKLY PRN 05/14/16 [History] Prochlorperazine [Compazine] 5 mg PO BID PRN 05/14/16 [History] amLODIPine [Norvasc] 10 mg PO QAM 05/14/16 [History] Albuterol Sulfate [Proair Hfa] 2 puff INHALATION RT-Q4H PRN 06/05/16 [History] Insulin NPL/Insulin Lispro [humaLOG MIX 75-25 VIAL] 16 unit SQ AC-TID 06/05/16 [ History] Azithromycin [Zithromax] 500 mg PO HS #7 tab 06/10/16 [Rx] Darbepoetin Drew [Aranesp] 40 mcg SQ Q7D syringe 06/10/16 [Rx] Folic Acid-Vit B Complex-Vit C [Nephrocaps] 1 each PO 1200 #30 cap 06/10/16 [Rx] hydrALAZINE HCL [Apresoline] 100 mg PO TID #180 tab 06/10/16 [Rx] traMADol HCl [Ultram] 50 mg PO TID PRN #30 tab 06/10/16 [Rx] Follow up Appointment(s)/Referral(s): Aaron Bobby MD [STAFF PHYSICIAN] - 1 Week David Smalls MD [Primary Care Provider] - 1-2 days Cirilo Garay MD [STAFF PHYSICIAN] - 1 Week Discharge Disposition: HOME SELF-CARE
[2016-06-10 08:56] LABS: Glucose,Whole Blood 145 mg/dL (75-99)
[2016-06-10] MEDS: INSULIN GLARGINE 100 UNIT/ML 10 ML VIAL SQ SCH (09:05)
[2016-06-10] MEDS: ERGOCALCIFEROL 50,000 UNIT CAP PO SCH (09:15)
[2016-06-10] MEDS: FUROSEMIDE 40 MG TAB PO SCH ×2 (09:16→17:09)
[2016-06-10] MEDS: traMADol 50 MG TAB PO PRN ×2 (09:16→15:03)
[2016-06-10] MEDS: SODIUM BICARBONATE TAB 650 MG TAB PO SCH (09:16)
--- NOTE | 2016-06-10 09:40 | P.PN ---
Subjective Patient is seen in follow-up for end-stage renal disease. She is maintained on hemodialysis on a Thursday schedule. She presented with tachyarrhythmia as well as high blood pressure. She's been running low hemoglobin as an outpatient and has received multiple packed red blood cell transfusions as an outpatient. She also underwent a recent bone marrow biopsy which did reveal MDS. Her hemoglobin was 6.7 at the time of admission and she did receive 1 unit of packed red blood cell transfusion this admission. Hemoglobin 8.1 this morning. Currently resting in bed. States her nose is quite dry and does have epistaxis at times. Vital signs are stable. General: The patient appeared well nourished and normally developed. HEENT: Head exam is unremarkable. Neck is without jugular venous distension. LUNGS: Lungs are clear to auscultation and percussion. Breath sounds decreased. HEART: Rate and Rhythm are regular. First and second heart sounds normal. No murmurs, rubs or gallops. ABDOMEN: Abdominal exam reveals normal bowel sounds. Non-tender and non- distended. No evidence of peritonitis. EXTREMITITES: No clubbing, cyanosis, or edema. Objective - Vital Signs Vital signs: Vital Signs Temp 98.4 F 06/10/16 07:25 Pulse 89 06/10/16 07:25 Resp 20 06/10/16 07:25 BP 158/75 06/10/16 07:25 Pulse Ox 95 06/10/16 07:25 Intake & Output 06/09/16 06/10/16 06/10/16 18:59 06:59 18:59 Intake Total 960 1200 240 Output Total 400 3150 Balance 560 -1950 240 Intake: IV 60 NS 60 Intake, IV Titration 300 Amount Azithromycin 500 mg In 250 Sodium Chloride 0.9% 250 ml @ 125 mls/hr IVPB DAILY@2230 ANNI Rx#: [id number] cefTRIAXone 1,000 mg In 50 Sodium Chloride 0.9% 50 ml @ 100 mls/hr IVPB Q24H ANNI Rx#:[id number] Oral 960 840 240 Output: Urine 400 1150 Other 2000 Other: Voiding Method Toilet Toilet # Voids 2 - Labs CBC & Chem 7: 06/10/16 06:11 06/10/16 06:08 Labs: Abnormal Lab Results - Last 24 Hours (Table) 06/09/16 06/09/16 06/10/16 Range/Units 11:43 20:57 06:08 WBC (3.8-10.6) k/uL RBC (3.80-5.40) m/uL Hgb (11.4-16.0) gm/dL Hct (34.0-46.0) % RDW (11.5-15.5) % Plt Count (150-450) k/uL Lymphocytes # (1.0-4.8) k/uL Sodium 136 L (137-145) mmol/L Potassium 5.6 H (3.5-5.1) mmol/L BUN 52 H (7-17) mg/dL Creatinine 5.75 H* (0.52-1.04) mg/dL POC Glucose (mg/dL) 132 H 125 H (75-99) mg/dL 06/10/16 06/10/16 Range/Units 06:11 08:52 WBC 3.1 L (3.8-10.6) k/uL RBC 2.51 L (3.80-5.40) m/uL Hgb 8.1 L (11.4-16.0) gm/dL Hct 24.1 L (34.0-46.0) % RDW 19.1 H (11.5-15.5) % Plt Count 149 L (150-450) k/uL Lymphocytes # 0.5 L (1.0-4.8) k/uL Sodium (137-145) mmol/L Potassium (3.5-5.1) mmol/L BUN (7-17) mg/dL Creatinine (0.52-1.04) mg/dL POC Glucose (mg/dL) 145 H (75-99) mg/dL Assessment and Plan Plan: Assessment: #1. End-stage renal disease maintained on hemodialysis on a Thursday schedule. #2. Hyperkalemia secondary to chronic kidney disease as well as hyperglycemia. #3. Acute anemia. Hemoglobin 6.7 on admission. Status post 1 unit of packed red blood cell transfusion on June 06. #4. Hypertension with chronic kidney disease. #5. Chronic kidney disease mineral bone disease. #6. Tachyarrhythmia. Possibly related to anemia. #7. Insulin-dependent diabetes mellitus. #8. Mild pericardial effusion noted on chest CT done this admission. Heart echocardiogram from September 2015 revealed the same. Plan: Monitor hemoglobin and transfuse as needed. Hemodialysis today. Maintain Aranesp. Maintain PhosLo with meals. Nephrocaps daily. Advised tight blood sugar control. Stable to be discharged home from nephrology standpoint after dialysis today.
[2016-06-10] MEDS: BUDESONIDE 0.5 MG/2 ML NEBU INHALATION SCH (09:42)
[2016-06-10] MEDS: hydrALAZINE HCL 50 MG TAB PO SCH ×2 (10:40→17:09)
[2016-06-10] MEDS: cloNIDine HCL 0.1 MG TAB PO SCH ×2 (10:40→17:09)
[2016-06-10] MEDS: amLODIPine 10 MG TAB PO SCH (10:41)
[2016-06-10 11:16] VITALS: RESP 16; TEMP 98.6
[2016-06-10 12:53] LABS: Glucose,Whole Blood 126 mg/dL (75-99)
[2016-06-10] MEDS: FOLIC ACID-VIT B COMPLEX-VIT C 1 CAP PO SCH (12:56)
[2016-06-10] MEDS: MAGNESIUM OXIDE 250 MG TAB PO SCH (12:56)
--- NOTE | 2016-06-10 14:43 | PN ---
DATE OF SERVICE: 06/10/2016 Ms. Sara Desouza is a 50-year-old female who was seen, evaluated, and examined at the sixth floor. Patient has been having issues associated with intermittent hemoptysis; however, symptoms have improved significantly. Respiratory standpoint, doing very well. Blood pressure 167/80, respiratory rate 18, pulse 89, temperature 98, saturation 94%. HEENT: Unremarkable. NECK: Supple. LUNGS: Good air entry bilaterally. HEART: Regular rate and rhythm. Abdomen is soft. NEUROLOGICAL EXAMINATION: Awake and alert. IMPRESSION: 1. Intermittent hemoptysis. 2. Fever, hyperkalemia, anemia. 3. Generalized weakness. Plan is as above. Continue supportive care. Increase activity as tolerated. Would recommend a followup in the office if continue to have issues with hemoptysis. May consider bronchoscopy for followup.
[2016-06-10] MEDS ORDERED: GELATIN SPONGE,ABSORB (SMALL) 1 EACH SPONGE ONE (15:30)
--- NOTE | 2016-06-10 16:02 | P.PN ---
Subjective Principal diagnosis: This is a 50-year-old female with end-stage renal disease on hemodialysis, hypertension, hyperlipidemia, diabetes, who presented to the hospital with symptoms of chest congestion and productive cough. She did have some associated shortness of breath. During dialysis patient was noted to be hypertensive and tachycardic and for this reason she was admitted to the hospital in [place] and transferred here. Patient underwent dialysis and also receive a unit of packed red blood cells for hemoglobin of 6.7. Blood pressure today 166/80, heart rate in the 90s. Arrangements are being made for discharge home today. Patient has been instructed on dosage of hydralazine with dialysis. Objective - Vital Signs Vital signs: Vital Signs Temp 98.6 F 06/10/16 11:14 Pulse 92 06/10/16 13:00 Resp 16 06/10/16 13:00 BP 167/80 06/10/16 11:14 Pulse Ox 94 L 06/10/16 11:14 Intake & Output 06/09/16 06/10/16 06/10/16 18:59 06:59 18:59 Intake Total 960 1200 980 Output Total 400 3150 325 Balance 560 -1950 655 Intake: IV 60 NS 60 Intake, IV Titration 300 Amount Azithromycin 500 mg In 250 Sodium Chloride 0.9% 250 ml @ 125 mls/hr IVPB DAILY@2230 ANNI Rx#: [id number] cefTRIAXone 1,000 mg In 50 Sodium Chloride 0.9% 50 ml @ 100 mls/hr IVPB Q24H ANNI Rx#:[id number] Oral 960 840 980 Output: Urine 400 1150 325 Other 1999 Other: Voiding Method Toilet Toilet Toilet # Voids 2 - Exam PHYSICAL EXAMINATION: HEENT: Head is atraumatic, normocephalic. Pupils equal, round. Neck is supple. There is no elevated jugular venous pressure. HEART EXAMINATION: Heart S1, S2 normal. No murmur or gallop heard. CHEST EXAMINATION: Lungs reveal fine crackles bilaterally to the bases. ABDOMEN: Soft, nontender. Bowel sounds are heard. No organomegaly noted. EXTREMITIES: 2+ peripheral pulses with no evidence of peripheral edema and no calf tenderness noted. NEUROLOGIC patient is awake, alert and oriented -3. . - Labs CBC & Chem 7: 06/10/16 06:11 06/10/16 06:08 Labs: Abnormal Lab Results - Last 24 Hours (Table) 06/09/16 06/10/16 06/10/16 Range/Units 20:57 06:08 06:11 WBC 3.1 L (3.8-10.6) k/uL RBC 2.51 L (3.80-5.40) m/uL Hgb 8.1 L (11.4-16.0) gm/dL Hct 24.1 L (34.0-46.0) % RDW 19.1 H (11.5-15.5) % Plt Count 149 L (150-450) k/uL Lymphocytes # 0.5 L (1.0-4.8) k/uL Sodium 136 L (137-145) mmol/L Potassium 5.6 H (3.5-5.1) mmol/L BUN 52 H (7-17) mg/dL Creatinine 5.75 H* (0.52-1.04) mg/dL POC Glucose (mg/dL) 125 H (75-99) mg/dL 06/10/16 06/10/16 Range/Units 08:52 12:48 WBC (3.8-10.6) k/uL RBC (3.80-5.40) m/uL Hgb (11.4-16.0) gm/dL Hct (34.0-46.0) % RDW (11.5-15.5) % Plt Count (150-450) k/uL Lymphocytes # (1.0-4.8) k/uL Sodium (137-145) mmol/L Potassium (3.5-5.1) mmol/L BUN (7-17) mg/dL Creatinine (0.52-1.04) mg/dL POC Glucose (mg/dL) 145 H 126 H (75-99) mg/dL Assessment and Plan (1) ESRD (end stage renal disease) on dialysis Status: Acute (2) HTN (hypertension) Status: Acute (3) Hyperlipemia Status: Acute (4) Tachycardia Status: Acute (5) Diabetes Status: Acute Plan: From cardiology's perspective, patient has been advised regarding the use of an additional hydralazine pre-dialysis. Her blood pressure today is been stable. From cardiology's perspective once she is cleared for discharge this is okay with us as well. DNP note has been reviewed, I agree with a documented findings and plan of care. Patient was seen and examined.
[2016-06-10 16:17] VITALS: BP 150/72; PULSE 99
[2016-06-10 17:16] LABS: Glucose,Whole Blood 73 mg/dL (75-99)
[2016-06-10] MEDS ORDERED: AZITHROMYCIN 500 MG TAB PO SCH (21:00)
--- NOTE | 2016-06-12 10:12 | CDI ---
In responding to this query, please exercise your independent professional judgment. The [facility] Coding Staff and Clinical Documentation Specialists appreciate your assistance in clarifying documentation, maintaining compliance with coding guidelines, accurately documenting patients condition and capturing severity of illness. The fact that a question is asked does not imply that any particular answer is desired or expected. Communication forms are a method of clarifying documentation and are not made part of the Legal Health Record. Thank you in advance for your clarification. Last Revision, March 2015 Sheldon Sullivan [address] [facility] [place] [address] Documentation Clarification Form Date: 06/12/2016 9:58:00 AM From: Shanice Wyatt Phone: Admit Date: 06/05/2016 12:06:00 PM Patient Name: Sara Desouza Visit Number: [id number] Discharge Date: 06/12/16 Dr. Shakira Dias Sepsis is documented in consult on 06/09. Please clarify if you are in agreement, if so was sepsis POA? History/Risk Factors: HTN w ESRD Clinical Indicators: WBC/Left Shift: WBC 4.1, Neutrophils3.6 Lactic acid: 1.4 Blood cultures: No growth Vitals signs on admission: T-99.0, P-105, R- 20-24, Antibiotics: IV Rocephin In your professional opinion, can you please clarify if these findings signify one of the following conditions, whether the condition is POA, and cause, if known? SIRS, without underlying infectious process Sepsis Severe Sepsis Septic Shock Unable to determine Other, please specify * Identify the (suspected) organism * Link or clarify if there is associated (due to/with): - Organ failure - Shock SIRS Criteria: 2 or more of the following may indicate SIRS Temperature < 96.8F(36C) or > 101.0F (38C) Heart Rate > 90 bpm Respiratory Rate > 20 breaths/min or PaCO2 < 32 mmHg White Blood Cell Count > 12,000 or < 4,000 cells/mm3 or > 10% bands Please document in your progress notes and discharge summary in order to capture severity of illness and risk of mortality. Include clinical findings that support your diagnosis. FYI: Press F11 to launch patient chart. ANANT Greene, CCS, AHIMA Certified I-10 Machine Heel Builder/[place] Machine Heel Builder II [place]
--- NOTE | 2016-06-13 08:30 | CDI ---
In responding to this query, please exercise your independent professional judgment. The [facility] Coding Staff and Clinical Documentation Specialists appreciate your assistance in clarifying documentation, maintaining compliance with coding guidelines, accurately documenting patients condition and capturing severity of illness. The fact that a question is asked does not imply that any particular answer is desired or expected. Communication forms are a method of clarifying documentation and are not made part of the Legal Health Record. Thank you in advance for your clarification. Last Revision, March 2015 Sheldon Sullivan [address] [facility] [place] [address] Documentation Clarification Form Date: 06/12/2016 9:58:00 AM From: Shanice Wyatt Phone: Admit Date: 06/05/2016 12:06:00 PM Patient Name: Sara Desouza Visit Number: [id number] Discharge Date: 06/13/16 Dr. Shakira Dias Sepsis is documented in consult on 06/09. Please clarify if you are in agreement, if so was sepsis POA? History/Risk Factors: HTN w ESRD Clinical Indicators: WBC/Left Shift: WBC 4.1, Neutrophils3.6 Lactic acid: 1.4 Blood cultures: No growth Vitals signs on admission: T-99.0, P-105, R- 20-24, Antibiotics: IV Rocephin In your professional opinion, can you please clarify if these findings signify one of the following conditions, whether the condition is POA, and cause, if known? SIRS, without underlying infectious process Sepsis Severe Sepsis Septic Shock Unable to determine Other, please specify * Identify the (suspected) organism * Link or clarify if there is associated (due to/with): - Organ failure - Shock SIRS Criteria: 2 or more of the following may indicate SIRS Temperature < 96.8F(36C) or > 101.0F (38C) Heart Rate > 90 bpm Respiratory Rate > 20 breaths/min or PaCO2 < 32 mmHg White Blood Cell Count > 12,000 or < 4,000 cells/mm3 or > 10% bands Please document in your progress notes and discharge summary in order to capture severity of illness and risk of mortality. Include clinical findings that support your diagnosis. FYI: Press F11 to launch patient chart. ANANT Greene, CCS, AHIMA Certified I-10 Human Resources Benefits Coordinator/[place] Human Resources Benefits Coordinator II [place]
== END 2016-06-10 17:30 | disposition home or self-care (01) | DRG 291 ==
LOC: EC 09:46 → 6SEL 12:06
PROVIDERS: ADMIT Family Medicine; ATTEND Family Medicine
PROC: 5A1D60Z (ICD-10-PCS; principal; 2016-06-05)
PROC: 30230N1 Transfusion of Nonautologous Red Blood Cells into Peripheral Vein, Open Approach (ICD-10-PCS; 2016-06-06)
DX: I13.2 Hypertensive heart and chronic kidney disease with heart failure and with stage 5 chronic kidney disease, or end stage renal disease (principal); N18.6 End stage renal disease; J18.9 Pneumonia, unspecified organism; D61.818 Other pancytopenia; E44.0 Moderate protein-calorie malnutrition; I31.3 Pericardial effusion (noninflammatory); J44.0 Chronic obstructive pulmonary disease with (acute) lower respiratory infection; K86.1 Other chronic pancreatitis; J44.1 Chronic obstructive pulmonary disease with (acute) exacerbation; R65.10 Systemic inflammatory response syndrome (SIRS) of non-infectious origin without acute organ dysfunction; E11.22 Type 2 diabetes mellitus with diabetic chronic kidney disease; I50.9 Heart failure, unspecified; E87.5 Hyperkalemia; D46.9 Myelodysplastic syndrome, unspecified; E78.1 Pure hyperglyceridemia; E11.65 Type 2 diabetes mellitus with hyperglycemia; I16.0 Hypertensive urgency; R04.0 Epistaxis; J20.9 Acute bronchitis, unspecified; D63.1 Anemia in chronic kidney disease; G51.0 Bell's palsy; Z99.2 Dependence on renal dialysis; Z79.4 Long term (current) use of insulin; Z79.899 Other long term (current) drug therapy
CPT/HCPCS: 36415; 71020; 71250; 80048; 80053; 82728; 83540; 83550; 83605; 83880; 84100; 84132; 84443; 85025; 86850; 86900; 86901; 86920; 87040; 90935; 96374; 96376; 99285

== ENCOUNTER → 2016-08-26 | Outpatient (CLI) | payer OTHER ==
[~2016-08-26] MED LIST changes: -LACTATED RINGERS 1,000 ML IV SCH; -LIDOCAINE 1% 20 ML VIAL (10MG/ML) FOR IV START INTRADERMA PRN; +REGADENOSON 0.4 MG/5 ML SYRINGE IV ONE
--- NOTE | 2016-08-26 11:31 | US ---
EXAMINATION TYPE: US abdomen limited DATE OF EXAM: 08/26/2016 8:44 AM COMPARISON: CT and US on PACS CLINICAL HISTORY: R10 abd pain. 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 EXAM MEASUREMENTS: Liver Length: 19.9 cm Gallbladder Wall: 0.2 cm CBD: 0.7 but tapers to 0.5 cm at head of pancreas Right Kidney: 9.5 x 4.0 x 3.3 cm Pancreas: mild lobular appearance to borders Liver: enlarged Gallbladder: wall polyp noted at fundal area = 0.4 x 0.2 x 0.3cm. Small amount of Free Fluid is note d adjacent to gallbladder Evidence for sonographic Campos's sign: No CBD: dilated mid lumen then tapers at head of pancreas Right Kidney: No hydronephrosis or masses seen Spleen measures 18.9 x 8.7 cm which is enlarged. Normal less than 12.5 cm. IMPRESSION: 1. Slight prominence of the common bile duct is 0.7 cm. Normal less than 0.6 cm in this age. 2. Gallbladder polyp or stone. 3. Some pericholecystic fluid is adjacent to the gallbladder. Correlate for cholecystitis. 4. Splenomegaly
--- NOTE | 2016-08-26 12:01 | EST ---
DATE OF SERVICE: 08/26/2016 AGE: 51Y SEX: F HT: 63" WT: 167 lbs. Lexiscan Cardiolite Stress Test *Heart Rate Blood Pressure *Rest: 65 Rest: 201/71 * *Max. Achieved: 88 Maximum BP: 239/81 85% PMHR: - 100% PMHR: - *METS: - INDICATIONS: Preop/transplant. MEDICATIONS: Clonidine, hydralazine, atenolol, amlodipine, omeprazole, furosemide, atorvastatin, vitamin D, [place], TUMS, Tramadol, Cyclobenzaprine. CLINICAL INFORMATION: History of hypertension, diabetes, shortness of breath, hypercholesterolemia. Family history of coronary artery disease, on multiple medications. Resting ECG shows sinus rhythm, rate of 65 beats per minute, [place] interval of 0.16, QRS of 0.08, normal ST-T waves. Utilizing a standard Lexiscan protocol, Lexiscan was given IV push followed by serial EKGs without any chest pain or pressure or ST-segment elevation indicative of ischemia. Patient tolerated the procedure very well. There were no complications during or after completion of the procedure. IMPRESSION: 1. Baseline rhythm is sinus with a normal [place] interval, normal ST-T waves. 2. Negative Lexiscan Cardiolite study. 3. Nuclear scintigrams to follow from Radiology Department.
--- NOTE | 2016-08-26 14:19 | USB ---
Reason for exam: clinical finding. US Breast Limited BILAT Right breast ultrasound demonstrates no cystic or solid lesion seen. Left breast ultrasound demonstrates no cystic or solid lesion seen. Very dense tissue under BB's. These results were verbally communicated with the patient and result sheet given to the patient on 08/26/16. ASSESSMENT: Negative, BI-RAD 1 RECOMMENDATION: Routine screening mammogram of both breasts in 1 year.
--- NOTE | 2016-08-26 15:03 | NM ---
EXAMINATION TYPE: NM stress lexiscan cardiolite DATE OF EXAM: 08/26/2016 11:33 AM COMPARISON: NONE HISTORY: Hypertension TECHNIQUE: After the intravenous administration of 10.08 mCi Tc 99m Sestamibi - Cardiolite resting S PECT images acquired 45 minutes post injection. The patient received 0.4mg Lexiscan, 26.8 mCi Tc 99m Sestamibi - Stress images obtained [address] injection FINDINGS: Gated analysis shows normal wall motion with an estimated left ventricular ejection fraction of 54 % . There is diminished radiotracer accumulation along the inferior wall on both resting and stress image s. The stress images appears somewhat better perfused. No reversible perfusion defects are evident. IMPRESSION: 1. Prior infarct inferior wall. 2. No reversible perfusion defects.
== END | disposition home or self-care (01) ==
LOC: RADUSMAIN 08:10
PROVIDERS: ATTEND Family Medicine
DX: K82.4 Cholesterolosis of gallbladder (principal); R16.2 Hepatomegaly with splenomegaly, not elsewhere classified
CPT/HCPCS: 93017; 76705; 76642; 78452; A9500; J2785

== ENCOUNTER → 2016-08-26 | Outpatient (CLI) | payer OTHER ==
--- NOTE | 2016-08-26 14:15 | MM ---
Reason for exam: screening (asymptomatic). Baseline mammogram. Physical Findings: Nurse Summary: 1cm nodule in the right breast at 2 o'clock and a 1cm nodule in the left breast at 3 o'clock (nurse dw). MG 3D Screening Mammo W/Cad Bilateral CC and MLO view(s) were taken. The breast tissue is extremely dense which could obscure a lesion on mammography. There is no discrete abnormality including palpable abnormality bilaterally. These results were verbally communicated with the patient and result sheet given to the patient on 08/26/16. ASSESSMENT: Negative, BI-RAD 1 RECOMMENDATION: Routine screening mammogram of both breasts in 1 year.
== END | disposition home or self-care (01) ==
LOC: RADMAMWWP 12:11
PROVIDERS: ATTEND Family Medicine
DX: Z12.31 Encounter for screening mammogram for malignant neoplasm of breast (principal)
CPT/HCPCS: 77063; G0202

== ENCOUNTER → 2016-08-28 | Outpatient (CLI) | payer OTHER ==
--- NOTE | 2016-09-05 10:30 | ECHOF ---
Referral Reason:I10 htn MEASUREMENTS -------- HEIGHT: 160.0 cm WEIGHT: 73.9 kg BP: RVIDd: 3.4 cm (< 3.3) IVSd: 1.2 cm (0.6 - 1.1) LVIDd: 4.3 cm (3.9 - 5.3) LVPWd: 1.7 cm (0.6 - 1.1) IVSs: 1.4 cm LVIDs: 3.3 cm LVPWs: 1.7 cm LA Diam: 4.7 cm (2.7 - 3.8) LAESV Index (A-L): 37.29 ml/m Ao Diam: 3.2 cm (2.0 - 3.7) AV Cusp: 2.3 cm (1.5 - 2.6) LA Diam: 5.0 cm (2.7 - 3.8) MV EXCURSION: 15.618 mm (> 18.000) MV EF SLOPE: 104 mm/s (70 - 150) EPSS: 0.3 cm MV E Armando: 0.90 m/s MV DecT: 223 ms MV A Armando: 0.82 m/s MV E/A Ratio: 1.10 RAP: 5.00 mmHg RVSP: 48.33 mmHg FINDINGS -------- Sinus rhythm. This was a technically good study. There is mild concentric left ventricular hypertrophy. Overall left ventricular systolic function is normal with, an EF between 55 - 60 %. The right ventricle is normal in size. LA is moderately dilated 34-39 ml/m2 The right atrial size is normal. There is mild aortic valve sclerosis. There is no evidence of aortic regurgitation. Mild mitral annular calcification present. Mild mitral regurgitation is present. Mild tricuspid regurgitation present. There is no evidence of pulmonary hypertension. The right ventricular systolic pressure, as measured by Doppler, is 48.33mmHg. There is no pulmonic regurgitation present. The aortic root size is normal. There is a small, generalized pericardial effusion present. CONCLUSIONS -------- 1. There is mild concentric left ventricular hypertrophy. 2. There is a small, generalized pericardial effusion present. 3. Overall left ventricular systolic function is normal with, an EF between 55 - 60 %. 4. LA is moderately dilated 34-39 ml/m2 5. There is mild aortic valve sclerosis. 6. Mild mitral annular calcification present. 7. Mild mitral regurgitation is present. 8. Mild tricuspid regurgitation present. 9. There is no evidence of pulmonary hypertension. 10. The right ventricular systolic pressure, as measured by Doppler, is 48.33mmHg. CLINICAL INFORMATION SYSTEMS DIRECTOR: Katie Stern RDCS
== END | disposition home or self-care (01) ==
LOC: RADECHMAIN 12:15
PROVIDERS: ATTEND Family Medicine
DX: I51.7 Cardiomegaly (principal); I31.3 Pericardial effusion (noninflammatory); I08.3 Combined rheumatic disorders of mitral, aortic and tricuspid valves; I10 Essential (primary) hypertension
CPT/HCPCS: 93306

== ENCOUNTER 2016-09-12 18:36 | Emergency (ER) | payer OTHER ==
[2016-09-12 18:45] VITALS: TEMP 97.3
[2016-09-12 18:55] LABS: Glucose,Whole Blood 538 mg/dL (75-99)
[2016-09-12] MEDS ORDERED: SODIUM CHLORIDE 0.9% 1,000 ML IV ONE (19:15)
[2016-09-12] MEDS ORDERED: INSULIN REGULAR 100 UNIT/ML VIAL IV ONE (19:16)
[2016-09-12] MEDS ORDERED: cloNIDine HCL 0.2 MG TAB PO STA (19:55)
--- NOTE | 2016-09-12 19:55 | ED ---
General Adult HPI - General Chief complaint: Recheck/Abnormal Lab/Rx Stated complaint: diabetes, sugar high Time Seen by Provider: 09/12/16 18:52 Source: patient, RN notes reviewed, old records reviewed Mode of arrival: ambulatory Limitations: no limitations - History of Present Illness Initial comments: Physical 51-year-old female with chief complaint of elevated blood sugar. Patient reports that she was recently treated for ALLERGIES and had a shot by her primary care provider yesterday. Patient reports that since yesterday after the shot she does that her blood sugars have been approximately 500. She states that she cannot get them down with her insulin. She states that she does not know what type of sliding scale to use. Patient denies any fever or chills or other associated symptoms. She reports that her cough and ALLERGIES including waterying eyes, subsided after the shot. She is unsure if it was a steroid. She reports that she does do dialysis 3 times a week. She reports that she has dialysis tomorrow. She states that she is on dialysis kidney injury 7 years ago. Patient denies any dysuria, abdominal pain, nausea, vomiting, chest pain, shortness of breath. - Related Data Home Medications Medication Instructions Recorded Confirmed Atorvastatin [Lipitor] 40 mg PO HS 09/14/15 09/12/16 Cyclobenzaprine [Flexeril] 5 mg PO HS 09/14/15 09/12/16 Magnesium Gluconate [Magonate] 1,500 mg PO DAILY 09/14/15 09/12/16 Omeprazole [PriLOSEC] 20 mg PO DAILY 09/14/15 09/12/16 Calcium Carbonate [Tums] 1,500 mg PO AC-TID 10/29/15 09/12/16 Furosemide [Lasix] 40 mg PO BID 03/12/16 09/12/16 Lidocaine 4% Cream [Lmx 4] 1 applic TOPICAL TUTHSA 03/12/16 09/12/16 cloNIDine HCL [Catapres] 0.3 mg PO TID 03/12/16 09/12/16 Insulin Glargine [Lantus] 70 unit SQ QAM 04/18/16 09/12/16 Calcium Acetate [PhosLo] 667 mg PO TID 05/14/16 09/12/16 Prochlorperazine [Compazine] 5 mg PO BID PRN 05/14/16 09/12/16 Insulin NPL/Insulin Lispro 16 unit SQ AC-TID 06/05/16 09/12/16 [humaLOG MIX 75-25 VIAL] Atenolol 25 mg PO DAILY 09/12/16 09/12/16 Suvorexant [Belsomra] 10 mg PO HS 09/12/16 09/12/16 Triphrocap 1mg 1 cap PO DAILY 09/12/16 09/12/16 amLODIPine [Norvasc] 5 mg PO DAILY 09/12/16 09/12/16 Previous Rx's Medication Instructions Recorded hydrALAZINE HCL [Apresoline] 100 mg PO TID #180 tab 06/10/16 traMADol HCl [Ultram] 50 mg PO TID PRN #30 tab 06/10/16 Allergies Allergy/AdvReac Type Severity Reaction Status Date / Time ciprofloxacin [From Cipro] Allergy AFFECTED Verified 09/12/16 19:24 EYESIGHT ciprofloxacin HCl Allergy AFFECTED Verified 09/12/16 19:24 [From Cipro] EYESIGHT Iodinated Contrast Media - Allergy RENAL Verified 09/12/16 19:24 Oral and FAILURE Review of Systems ROS Statement: Those systems with pertinent positive or pertinent negative responses have been documented in the HPI. ROS Other: All systems not noted in ROS Statement are negative. Past Medical History Past Medical History: Diabetes Mellitus, Hyperlipidemia, Hypertension, Renal Disease Additional Past Medical History / Comment(s): Recent bronchitis-completed ABX, hypertriglyceridemia-induced acute pancreatitis, necrotizing pancreatitis-sent to [facility], hemodialysis for acute kidney injury 2 months in 2009 after pancreatic surgery, 11/2015 diagnosed with chronic kidney disease-hemodialysis //, IDDM type II, chronic anemia, occasional back pain, carter's palsey x2, past L leg fx. History of Any Multi-Drug Resistant Organisms: None Reported Past Surgical History: Uterine Ablation Additional Past Surgical History / Comment(s): pancreatic resection at [facility] 2009, bone marrow biopsies-last one 05/19/16,. dialysis chest port x 2 with removals, Left arm shunt placement for dialysis - December 2015 Past Anesthesia/Blood Transfusion Reactions: No Reported Reaction Additional Past Anesthesia/Blood Transfusion Reaction / Comment(s): Pt has received blood transfusions without reaction-last transfusion 06/04/16. Past Psychological History: No Psychological Hx Reported Additional Psychological History / Comment(s): Pt resides with spouse and 1 adult manish. She is independent. She uses no assistive device. She drives. Smoking Status: Never smoker Past Alcohol Use History: None Reported Additional Past Alcohol Use History / Comment(s): Patient is a lifelong nonsmoker. She denies any medical marijuana, marijuana, street drug use. She drinks alcohol on a very rare basis. She lives at home with her and 21- year-old daughter. There is a cat in the home. 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 Past Drug Use History: None Reported - Past Family History Brother(s) Family Medical History: No Reported History Mother Family Medical History: Cancer, Diabetes Mellitus Additional Family Medical History / Comment(s): Mother of throat cancer at the age of 63 yrs. She was a smoker. Father Family Medical History: Coronary Artery Disease (CAD), Hyperlipidemia, Hypertension Additional Family Medical History / Comment(s): Father is 70 yrs old. General Exam - General Exam Comments Initial Comments: Well-appearing 51-year-old female. No distress. Limitations: no limitations General appearance: alert, in no apparent distress Head exam: Present: atraumatic, normocephalic, normal inspection Eye exam: Present: normal appearance, PERRL, EOMI. Absent: scleral icterus, conjunctival injection, periorbital swelling ENT exam: Present: normal exam, normal oropharynx, mucous membranes moist Neck exam: Present: normal inspection. Absent: tenderness, meningismus, lymphadenopathy Respiratory exam: Present: normal lung sounds bilaterally. Absent: respiratory distress, wheezes, rales, rhonchi, stridor Cardiovascular Exam: Present: regular rate, normal rhythm, normal heart sounds. Absent: systolic murmur, diastolic murmur, rubs, gallop, clicks GI/Abdominal exam: Present: soft, normal bowel sounds. Absent: distended, tenderness, guarding, rebound, rigid Extremities exam: Present: normal inspection, full ROM, normal capillary refill. Absent: tenderness, pedal edema, joint swelling, calf tenderness Back exam: Present: normal inspection Neurological exam: Present: alert, oriented X3, CN II-XII intact Psychiatric exam: Present: normal affect, normal mood Skin exam: Present: warm, dry, intact, normal color. Absent: rash Course Vital Signs 09/12/16 09/12/16 09/12/16 18:41 20:07 21:33 Temperature 97.3 F L Pulse Rate 76 Respiratory 18 Rate Blood Pressure 233/103 198/86 202/85 O2 Sat by Pulse 98 Oximetry 09/12/16 22:17 Temperature Pulse Rate 78 Respiratory 16 Rate Blood Pressure 202/85 O2 Sat by Pulse 98 Oximetry Medical Decision Making - Medical Decision Making His is a 51-year-old female with chief complaint of elevated blood sugar after steroid shot yesterday. Patient lab work was reviewed. She does have an elevated BUN/creatinine elevated potassium of 6.3. EKG was obtained shows no evidence of any acute abdomen or maladies. Patient was given Kayexalate for the elevated potassium. Patient given 8 units of insulin and blood sugar will be rechecked. Patient does have dialysis scheduled tomorrow. I reviewed her labs and her BUN/creatinine are consistent with previous labs in May. Patient states that this is managed by her primary care provider and Dr. Jones. Patient agrees with completing her dialysis tomorrow. Discussed with her the appropriate sliding scale for insulin. Patient understands treatment plan will comply. Return parameters were discussed. - Lab Data Result diagrams: 09/12/16 19:50 09/12/16 19:50 Lab Results 09/12/16 09/12/16 09/12/16 Range/Units 18:53 19:50 19:50 WBC 4.3 (3.8-10.6) k/uL RBC 2.67 L (3.80-5.40) m/uL Hgb 9.1 L (11.4-16.0) gm/dL Hct 28.2 L (34.0-46.0) % MCV 105.4 H (80.0-100.0) fL MCH 34.2 (25.0-35.0) pg MCHC 32.4 (31.0-37.0) g/dL RDW 16.5 H (11.5-15.5) % Plt Count 105 L (150-450) k/uL Neutrophils % 82 % Lymphocytes % 9 % Monocytes % 6 % Eosinophils % 1 % Basophils % 1 % Neutrophils # 3.5 (1.3-7.7) k/uL Lymphocytes # 0.4 L (1.0-4.8) k/uL Monocytes # 0.2 (0-1.0) k/uL Eosinophils # 0.0 (0-0.7) k/uL Basophils # 0.0 (0-0.2) k/uL Hypochromasia Slight Poikilocytosis Slight Anisocytosis Slight Macrocytosis Moderate Sodium 129 L (137-145) mmol/L Potassium 6.3 H* (3.5-5.1) mmol/L Chloride 91 L (98-107) mmol/L Carbon Dioxide 26 (22-30) mmol/L Anion Gap 12 mmol/L BUN 51 H (7-17) mg/dL Creatinine 5.94 H* (0.52-1.04) mg/dL Est GFR (MDRD) Af Amer 9 (>60 ml/min/1.73 sqM) Est GFR (MDRD) Non-Af 8 (>60 ml/min/1.73 sqM) Glucose 521 H* (74-99) mg/dL POC Glucose (mg/dL) 538 H (75-99) mg/dL POC Glu Instructional Technology Facilitator ID Pati Buenrostro Calcium 9.0 (8.4-10.2) mg/dL Total Bilirubin 0.9 (0.2-1.3) mg/dL AST 82 H (14-36) U/L ALT 96 H (9-52) U/L Alkaline Phosphatase 96 (38-126) U/L Total Protein 7.3 (6.3-8.2) g/dL Albumin 4.4 (3.5-5.0) g/dL Urine Color Urine Appearance (Clear) Urine pH (5.0-8.0) Ur Specific [place] (1.001-1.035) Urine Protein (Negative) Urine Glucose (UA) (Negative) Urine Ketones (Negative) Urine Blood (Negative) Urine Nitrite (Negative) Urine Bilirubin (Negative) Urine Urobilinogen (<2.0) mg/dL Ur Leukocyte Esterase (Negative) Urine RBC (0-5) /hpf Urine WBC (0-5) /hpf Ur Squamous Epith Cells (0-4) /hpf Urine Bacteria (None) /hpf Urine Mucus (None) /hpf Acetone, Qual Negative (Negative) 09/12/16 09/12/16 Range/Units 19:50 21:30 WBC (3.8-10.6) k/uL RBC (3.80-5.40) m/uL Hgb (11.4-16.0) gm/dL Hct (34.0-46.0) % MCV (80.0-100.0) fL MCH (25.0-35.0) pg MCHC (31.0-37.0) g/dL RDW (11.5-15.5) % Plt Count (150-450) k/uL Neutrophils % % Lymphocytes % % Monocytes % % Eosinophils % % Basophils % % Neutrophils # (1.3-7.7) k/uL Lymphocytes # (1.0-4.8) k/uL Monocytes # (0-1.0) k/uL Eosinophils # (0-0.7) k/uL Basophils # (0-0.2) k/uL Hypochromasia Poikilocytosis Anisocytosis Macrocytosis Sodium (137-145) mmol/L Potassium (3.5-5.1) mmol/L Chloride (98-107) mmol/L Carbon Dioxide (22-30) mmol/L Anion Gap mmol/L BUN (7-17) mg/dL Creatinine (0.52-1.04) mg/dL Est GFR (MDRD) Af Amer (>60 ml/min/1.73 sqM) Est GFR (MDRD) Non-Af (>60 ml/min/1.73 sqM) Glucose (74-99) mg/dL POC Glucose (mg/dL) 375 H (75-99) mg/dL POC Glu Instructional Technology Facilitator ID Saul, Alejandra Calcium (8.4-10.2) mg/dL Total Bilirubin (0.2-1.3) mg/dL AST (14-36) U/L ALT (9-52) U/L Alkaline Phosphatase (38-126) U/L Total Protein (6.3-8.2) g/dL Albumin (3.5-5.0) g/dL Urine Color Light Yellow Urine Appearance Clear (Clear) Urine pH 8.0 (5.0-8.0) Ur Specific [place] 1.005 (1.001-1.035) Urine Protein 2+ H (Negative) Urine Glucose (UA) 4+ H (Negative) Urine Ketones Negative (Negative) Urine Blood Negative (Negative) Urine Nitrite Negative (Negative) Urine Bilirubin Negative (Negative) Urine Urobilinogen <2.0 (<2.0) mg/dL Ur Leukocyte Esterase Negative (Negative) Urine RBC <1 (0-5) /hpf Urine WBC 1 (0-5) /hpf Ur Squamous Epith Cells 1 (0-4) /hpf Urine Bacteria Rare H (None) /hpf Urine Mucus Rare H (None) /hpf Acetone, Qual (Negative) 09/13/16 04:29 EKG shows normal sinus rhythm. Ventricular rate of 70 bpm. MA interval 174 mg. QRS ration 96 most seconds. QT QTc is 408/440 ms. No evidence of ST elevation or T-wave inversion. No evidence of atrial or ventricular arrhythmias. Patient does have some mildly peaked T waves. This is consistent with her mild hyperkalemia. Disposition Clinical Impression: Steroid-induced hyperglycemia, Hypertension, Dialysis patient Disposition: HOME SELF-CARE Condition: Good Instructions: Diabetic Hyperglycemia (ED) Additional Instructions: Patient advised to rest, remain hydrated. Patient needs follow-up with dialysis tomorrow 5. Return to the emergency department if any alarming signs or symptoms occur. Patient needs to continue to dose insulin with sliding scale. Follow-up with primary care provider. Referrals: David Bragg MD [Primary Care Provider] - 1-2 days Time of Disposition: 21:39
[2016-09-12 20:03] LABS: Anisocytosis Slight; Basophils % (A) 1 %; CH 34.6; Eosinophils % (A) 1 %; HCT 28.2 % (34.0-46.0); HDW 3.45; HGB 9.1 gm/dL (11.4-16.0); Hypochromasia Slight; Luc # (Auto) 0.11; Luc % (Auto) 3; Lymphocytes # (A) 0.4 k/uL (1.0-4.8); Lymphocytes % (A) 9 %; MCH 34.2 pg (25.0-35.0); MCHC 32.4 g/dL (31.0-37.0); MCV 105.4 fL (80.0-100.0); Macrocytosis Moderate; Mean Platelet Volume 8.1; Monocytes # (A) 0.2 k/uL (0-1.0); Monocytes % (A) 6 %; Neutrophils # (A) 3.5 k/uL (1.3-7.7); Neutrophils % (A) 82 %; Poikilocytosis Slight; RBC 2.67 m/uL (3.80-5.40); RDW 16.5 % (11.5-15.5); WBC 4.3 k/uL (3.8-10.6); WBC (Perox) 4.39
[2016-09-12 20:06] LABS: Appearance,Urine Clear (Clear); Bacteria,Urine Rare /hpf; Bilirubin,Urine Negative (Negative); Glucose,Urine (UA) 4+ (Negative); Ketones,Urine Negative (Negative); Leukocyte Esterase,Urine Negative (Negative); Mucus,Urine Rare /hpf; Nitrite,Urine Negative (Negative); Particle Count 1612; Protein,Urine 2+ (Negative); RBC,Urine <1 /hpf (0-5); Specific Gravity,Urine 1.005 (1.001-1.035); Squamous Epithelial Cell,Urine 1 /hpf (0-4); UA Billing (MACRO vs. MICRO) MICRO; Urobilinogen,Urine <2.0 mg/dL (<2.0); WBC,Urine 1 /hpf (0-5)
[2016-09-12 20:18] LABS: ALT 96 U/L (9-52); AST 82 U/L (14-36); Alkaline Phosphatase 96 U/L (38-126); Anion Gap 12 mmol/L; Blood Urea Nitrogen 51 mg/dL (7-17); Carbon Dioxide 26 mmol/L (22-30); Chloride 91 mmol/L (98-107); Non-African American GFR(MDRD) 8 (>60 ml/min/1.73 sqM); Sodium 129 mmol/L (137-145); Total Bilirubin 0.9 mg/dL (0.2-1.3); Total Protein 7.3 g/dL (6.3-8.2)
[2016-09-12 20:19] LABS: Glucose 521 mg/dL (74-99); Potassium 6.3 mmol/L (3.5-5.1)
[2016-09-12] MEDS ORDERED: SODIUM CHLORIDE 0.9% 1,000 ML IV SCH (20:30)
[2016-09-12] MEDS ORDERED: SODIUM POLYSTYRENE SULFONATE 15 GM/60 ML BOTTLE PO ONE (20:45)
[2016-09-12 21:33] VITALS: BP 202/85
[2016-09-12 21:46] LABS: Glucose,Whole Blood 375 mg/dL (75-99)
[2016-09-12 22:18] VITALS: PULSE 78; RESP 16
== END 2016-09-12 22:17 | disposition home or self-care (01) ==
LOC: EC 18:36
DX: E09.65 Drug or chemical induced diabetes mellitus with hyperglycemia (principal); R05 Cough; E78.5 Hyperlipidemia, unspecified; D64.9 Anemia, unspecified; I12.9 Hypertensive chronic kidney disease with stage 1 through stage 4 chronic kidney disease, or unspecified chronic kidney disease; N18.9 Chronic kidney disease, unspecified; Z99.2 Dependence on renal dialysis; Z79.4 Long term (current) use of insulin; Z79.899 Other long term (current) drug therapy; Z88.1 Allergy status to other antibiotic agents; Z91.041 Radiographic dye allergy status
CPT/HCPCS: 36415; 80053; 81001; 82009; 85025; 93005; 96360; 96361; 99284

== ENCOUNTER 2016-12-16 18:17 | Observation (INO) | payer OTHER ==
[2016-12-16 19:28] LABS: Anisocytosis Slight; Basophils % (A) 0 %; CH 36.3; CHCM 34.9; Eosinophils % (A) 1 %; HCT 23.7 % (34.0-46.0); HDW 3.54; HGB 8.1 gm/dL (11.4-16.0); Luc # (Auto) 0.06; Luc % (Auto) 2; Lymphocytes # (A) 0.3 k/uL (1.0-4.8); Lymphocytes % (A) 7 %; MCH 35.9 pg (25.0-35.0); MCHC 34.3 g/dL (31.0-37.0); MCV 104.8 fL (80.0-100.0); Macrocytosis Moderate; Mean Platelet Volume 7.7; Monocytes # (A) 0.2 k/uL (0-1.0); Monocytes % (A) 5 %; Neutrophils # (A) 3.3 k/uL (1.3-7.7); Neutrophils % (A) 85 %; Poikilocytosis Slight; RBC 2.26 m/uL (3.80-5.40); RDW 17.6 % (11.5-15.5); WBC 3.9 k/uL (3.8-10.6)
[2016-12-16 19:38] LABS: Calcium 8.6 mg/dL (8.4-10.2); Potassium 4.7 mmol/L (3.5-5.1); Total Bilirubin 1.2 mg/dL (0.2-1.3); Total Protein 6.9 g/dL (6.3-8.2)
--- NOTE | 2016-12-16 19:39 | XR ---
EXAMINATION TYPE: XR chest 2V DATE OF EXAM: 12/16/2016 COMPARISON: CT chest dated 06/08/2016 HISTORY: Difficulty breathing TECHNIQUE: Frontal and lateral views of the chest are obtained. FINDINGS: There is no focal air space opacity, pleural effusion, or pneumothorax seen. Mild pulmona ry vascular congestion is seen centrally most prominent on the lateral image. The cardiac silhouette size is mildly enlarged. The osseous structures are intact. IMPRESSION: Cardiomegaly and mild pulmonary vascular congestion most exaggerated on the lateral imag e in this patient with difficulty breathing.
[2016-12-16 19:41] LABS: Partial Thromboplastin Time 23.6 sec (22.0-30.0); Prothrombin Time 10.5 sec (9.0-12.0)
[2016-12-16 19:54] LABS: Creatine Kinase 189 U/L (30-135)
[2016-12-16 20:08] LABS: Creatine Kinase MB 1.7 ng/mL (0.0-2.4); Troponin I <0.012 ng/mL (0.000-0.034)
[2016-12-16] MEDS ORDERED: HYDROcodone/APAP 5-325MG 1 EACH TAB PO STA (21:02)
--- NOTE | 2016-12-16 23:29 | ED ---
SOB HPI - General Chief Complaint: Shortness of Breath Stated Complaint: weakness Time Seen by Provider: 12/16/16 18:35 Source: patient Mode of arrival: ambulatory Limitations: no limitations - History of Present Illness Initial Comments: 51 years old lady presents with the shortness of breath, she felt she was short winded acid is she got done with dialysis today she also had a pretty bad coughing episode and family noticed that she was trying to catch him but then it cleared up and she also noticed her blood pressure was quite complaining about chest pain only with a deep breaths also concerned about her anemia she feels that she feels weak and this is how she feels when hemoglobin level, review of system is otherwise normal - Related Data Home Medications Medication Instructions Recorded Confirmed Atorvastatin [Lipitor] 40 mg PO HS 09/14/15 12/16/16 Cyclobenzaprine [Flexeril] 5 mg PO HS 09/14/15 12/16/16 Magnesium Gluconate [Magonate] 1,000 mg PO QAM 09/14/15 12/16/16 Omeprazole [PriLOSEC] 20 mg PO DAILY 09/14/15 12/16/16 Furosemide [Lasix] 40 mg PO BID 03/12/16 12/16/16 Lidocaine 4% Cream [Lmx 4] 1 applic TOPICAL TUTA 03/12/16 12/16/16 Insulin Glargine [Lantus] 70 unit SQ QAM 04/18/16 12/16/16 Calcium Acetate [PhosLo] 667 mg PO TID 05/14/16 12/16/16 Prochlorperazine [Compazine] 5 mg PO BID PRN 05/14/16 12/16/16 Insulin NPL/Insulin Lispro 16 unit SQ AC-TID 06/05/16 12/16/16 [humaLOG MIX 75-25 VIAL] Triphrocap 1mg 1 cap PO DAILY 09/12/16 12/16/16 amLODIPine [Norvasc] 5 mg PO DAILY 09/12/16 12/16/16 Insulin NPL/Insulin Lispro See Protocol SQ AC-TID PRN 12/16/16 12/16/16 [humaLOG MIX 75-25 VIAL] Magnesium Gluconate [Magonate] 500 mg PO W/LUNCH 12/16/16 12/16/16 Metoprolol Tartrate [Lopressor] 25 mg PO DAILY 12/16/16 12/16/16 Sevelamer [Renvela] 1,600 - 2,400 mg PO AC-TID 12/16/16 12/16/16 Vitamin E 1,000 unit PO DAILY 12/16/16 12/16/16 cloNIDine HCL 0.3 mg PO TID 12/16/16 12/16/16 Previous Rx's Medication Instructions Recorded hydrALAZINE HCL [Apresoline] 100 mg PO TID #180 tab 06/10/16 traMADol HCl [Ultram] 50 mg PO TID PRN #30 tab 06/10/16 Allergies Allergy/AdvReac Type Severity Reaction Status Date / Time ciprofloxacin [From Cipro] Allergy AFFECTED Verified 12/16/16 19:01 EYESIGHT ciprofloxacin HCl Allergy AFFECTED Verified 12/16/16 19:01 [From Cipro] EYESIGHT Iodinated Contrast- Oral and Allergy RENAL Verified 12/16/16 19:01 IV Dye FAILURE Review of Systems ROS Statement: Those systems with pertinent positive or pertinent negative responses have been documented in the HPI. ROS Other: All systems not noted in ROS Statement are negative. Past Medical History Past Medical History: Diabetes Mellitus, Hyperlipidemia, Hypertension, Renal Disease Additional Past Medical History / Comment(s): Recent bronchitis-completed ABX, hypertriglyceridemia-induced acute pancreatitis, necrotizing pancreatitis-sent to [facility], hemodialysis for acute kidney injury 2 months in 2009 after pancreatic surgery, 11/2015 diagnosed with chronic kidney disease-hemodialysis //, IDDM type II, chronic anemia, occasional back pain, carter's palsey x2, past L leg fx. History of Any Multi-Drug Resistant Organisms: None Reported Past Surgical History: Uterine Ablation Additional Past Surgical History / Comment(s): pancreatic resection at [facility] 2009, bone marrow biopsies-last one 05/19/16,. dialysis chest port x 2 with removals, Left arm shunt placement for dialysis - December 2015 Past Anesthesia/Blood Transfusion Reactions: No Reported Reaction Additional Past Anesthesia/Blood Transfusion Reaction / Comment(s): Pt has received blood transfusions without reaction-last transfusion 06/04/16. Past Psychological History: No Psychological Hx Reported Smoking Status: Never smoker Past Alcohol Use History: None Reported Past Drug Use History: None Reported - Past Family History Brother(s) Family Medical History: No Reported History Mother Family Medical History: Cancer, Diabetes Mellitus Additional Family Medical History / Comment(s): Mother of throat cancer at the age of 63 yrs. She was a smoker. Father Family Medical History: Coronary Artery Disease (CAD), Hyperlipidemia, Hypertension Additional Family Medical History / Comment(s): Father is 70 yrs old. General Exam - General Exam Comments Initial Comments: General: The patient is awake and alert, in no distress, and does not appear acutely ill. Skin: Skin is warm and dry and no rashes or lesions are noted. Eye: Pupils are equal, round and reactive to light, extra-ocular movements are intact; there is normal conjunctiva bilaterally. Ears, nose, mouth and throat: There are moist mucous membranes and no oral lesions. Neck: The neck is supple, there is no tenderness or JVD. Cardiovascular: There is a regular rate and rhythm. No murmur, rub or gallop is appreciated. Respiratory: To auscultation bilateral, noticed crackles at the bases Gastrointestinal: Soft, non-distended, non-tender abdomen without masses or organomegaly noted. There is no rebound or guarding present. Bowel sounds are unremarkable. Back: There is no tenderness to palpation in the midline. There is no obvious deformity. Musculoskeletal: Normal ROM, no tenderness, There is no pedal edema. There is no calf tenderness or swelling. No cords were appreciated. Neurological: CN II-XII intact, Cranial nerves III through XII are intact. There are no obvious motor or sensory deficits. Coordination appears grossly intact. Speech is normal. Psychiatric: Cooperative, appropriate mood & affect, normal judgment. Limitations: no limitations Course Vital Signs 12/16/16 12/16/16 12/16/16 18:26 19:09 19:23 Temperature 98.6 F Pulse Rate 96 89 Pulse Rate [ 72 Production Support Engineer ] Respiratory 20 18 Rate Blood Pressure 224/93 197/85 O2 Sat by Pulse 97 98 Oximetry 12/16/16 12/16/16 20:46 22:21 Temperature 99.1 F Pulse Rate 83 83 Pulse Rate [ Production Support Engineer ] Respiratory 18 18 Rate Blood Pressure 166/71 177/75 O2 Sat by Pulse 97 Oximetry EKG is normal sinus rhythm ventricular rate is normal 4 [place] interval is 158 QRS duration is 72 QT/QTc is 374/469 review of this EKG does not reveal any abnormality at all no ST elevation Medical Decision Making - Lab Data Result diagrams: 12/16/16 19:05 12/16/16 19:05 Lab Results 12/16/16 12/16/16 12/16/16 Range/Units 19:05 19:05 19:05 WBC 3.9 (3.8-10.6) k/uL RBC 2.26 L (3.80-5.40) m/uL Hgb 8.1 L (11.4-16.0) gm/dL Hct 23.7 L (34.0-46.0) % MCV 104.8 H (80.0-100.0) fL MCH 35.9 H (25.0-35.0) pg MCHC 34.3 (31.0-37.0) g/dL RDW 17.6 H (11.5-15.5) % Plt Count 117 L (150-450) k/uL Neutrophils % 85 % Lymphocytes % 7 % Monocytes % 5 % Eosinophils % 1 % Basophils % 0 % Neutrophils # 3.3 (1.3-7.7) k/uL Lymphocytes # 0.3 L (1.0-4.8) k/uL Monocytes # 0.2 (0-1.0) k/uL Eosinophils # 0.0 (0-0.7) k/uL Basophils # 0.0 (0-0.2) k/uL Poikilocytosis Slight Anisocytosis Slight Macrocytosis Moderate PT (9.0-12.0) sec INR (<1.2) APTT (22.0-30.0) sec D-Dimer (<0.60) mg/L FEU Sodium 137 (137-145) mmol/L Potassium 4.7 (3.5-5.1) mmol/L Chloride 94 L (98-107) mmol/L Carbon Dioxide 31 H (22-30) mmol/L Anion Gap 12 mmol/L BUN 32 H (7-17) mg/dL Creatinine 4.83 H (0.52-1.04) mg/dL Est GFR (MDRD) Af Amer 12 (>60 ml/min/1.73 sqM) Est GFR (MDRD) Non-Af 10 (>60 ml/min/1.73 sqM) Glucose 91 (74-99) mg/dL Calcium 8.6 (8.4-10.2) mg/dL Total Bilirubin 1.2 (0.2-1.3) mg/dL AST 26 (14-36) U/L ALT 40 (9-52) U/L Alkaline Phosphatase 81 (38-126) U/L Total Creatine Kinase 189 H (30-135) U/L CK-MB (CK-2) 1.7 (0.0-2.4) ng/mL CK-MB (CK-2) Rel Index 0.9 Troponin I <0.012 (0.000-0.034) ng/mL Total Protein 6.9 (6.3-8.2) g/dL Albumin 4.3 (3.5-5.0) g/dL 12/16/16 Range/Units 19:05 WBC (3.8-10.6) k/uL RBC (3.80-5.40) m/uL Hgb (11.4-16.0) gm/dL Hct (34.0-46.0) % MCV (80.0-100.0) fL MCH (25.0-35.0) pg MCHC (31.0-37.0) g/dL RDW (11.5-15.5) % Plt Count (150-450) k/uL Neutrophils % % Lymphocytes % % Monocytes % % Eosinophils % % Basophils % % Neutrophils # (1.3-7.7) k/uL Lymphocytes # (1.0-4.8) k/uL Monocytes # (0-1.0) k/uL Eosinophils # (0-0.7) k/uL Basophils # (0-0.2) k/uL Poikilocytosis Anisocytosis Macrocytosis PT 10.5 (9.0-12.0) sec INR 1.0 (<1.2) APTT 23.6 (22.0-30.0) sec D-Dimer 0.59 (<0.60) mg/L FEU Sodium (137-145) mmol/L Potassium (3.5-5.1) mmol/L Chloride (98-107) mmol/L Carbon Dioxide (22-30) mmol/L Anion Gap mmol/L BUN (7-17) mg/dL Creatinine (0.52-1.04) mg/dL Est GFR (MDRD) Af Amer (>60 ml/min/1.73 sqM) Est GFR (MDRD) Non-Af (>60 ml/min/1.73 sqM) Glucose (74-99) mg/dL Calcium (8.4-10.2) mg/dL Total Bilirubin (0.2-1.3) mg/dL AST (14-36) U/L ALT (9-52) U/L Alkaline Phosphatase (38-126) U/L Total Creatine Kinase (30-135) U/L CK-MB (CK-2) (0.0-2.4) ng/mL CK-MB (CK-2) Rel Index Troponin I (0.000-0.034) ng/mL Total Protein (6.3-8.2) g/dL Albumin (3.5-5.0) g/dL Disposition Clinical Impression: Chest pain, Hypertension, Congestive heart failure Disposition: ADMITTED IP TO THIS HOSP Condition: Good Referrals: David Bragg MD [Primary Care Provider] - 1-2 days
[2016-12-16] MEDS ORDERED: NITROGLYCERIN SL TABS 0.4 MG TAB SUBLINGUAL PRN (23:34)
[2016-12-16] MEDS ORDERED: HEPARIN SODIUM,PORCINE 5,000 UNIT/ML 1 ML VIAL IV ONE (23:34)
[2016-12-16] MEDS ORDERED: PROCHLORPERAZINE 5 MG TAB PO PRN (23:38)
[2016-12-16] MEDS ORDERED: FUROSEMIDE 10 MG/ML 4 ML VIAL IV STA (23:40)
[2016-12-16] MEDS ORDERED: HEPARIN SODIUM,PORCINE/D5W PMX 25,000 UNIT in DEXTROSE/WATER 1 500ML.BAG IV SCH (23:45)
[2016-12-17] MEDS ORDERED: cloNIDine HCL 0.1 MG TAB PO STA (00:12)
[2016-12-17] MEDS ORDERED: hydrALAZINE HCL 50 MG TAB PO STA (00:12)
[2016-12-17 00:28] LABS: Glucose,Whole Blood 64 mg/dL (75-99)
[2016-12-17 00:52] LABS: Glucose,Whole Blood 102 mg/dL (75-99)
[2016-12-17 01:29] VITALS: BMI 29.2
[2016-12-17] MEDS ORDERED: CYCLOBENZAPRINE 5 MG TAB PO STA (01:33)
[2016-12-17 01:46] LABS: Creatine Kinase 168 U/L (30-135)
[2016-12-17 01:58] LABS: Creatine Kinase MB 1.4 ng/mL (0.0-2.4); Troponin I <0.012 ng/mL (0.000-0.034)
[2016-12-17 02:09] LABS: Glucose,Whole Blood 190 mg/dL (75-99)
[2016-12-17] MEDS: traMADol 50 MG TAB PO PRN ×2 (03:44→11:27)
[2016-12-17 05:38] LABS: Glucose,Whole Blood 289 mg/dL (75-99)
[2016-12-17 06:54] LABS: Glucose,Whole Blood 259 mg/dL (75-99)
[2016-12-17 07:07] LABS: Cholesterol 109 mg/dL (<200); HDL Cholesterol 23 mg/dL (40-60)
[2016-12-17] MEDS ORDERED: PANTOPRAZOLE 40 MG TABLET PO SCH (07:30)
[2016-12-17 07:32] LABS: Creatine Kinase 150 U/L (30-135)
[2016-12-17 07:46] LABS: Creatine Kinase MB 1.3 ng/mL (0.0-2.4); Troponin I <0.012 ng/mL (0.000-0.034)
[2016-12-17] MEDS ORDERED: MAGNESIUM OXIDE 400 MG TAB PO SCH ×2 (09:00→12:30)
[2016-12-17] MEDS ORDERED: VITAMIN E (DL,TOCOPHERYL ACET) 400 UNIT CAP PO SCH (09:00)
[2016-12-17] MEDS ORDERED: B COMPLEX-VIT C-VIT E-ZINC 1 EACH TAB PO SCH (09:00)
[2016-12-17] MEDS ORDERED: amLODIPine 5 MG TAB PO SCH (09:00)
[2016-12-17] MEDS ORDERED: ASPIRIN 325 MG TAB PO SCH (09:00)
[2016-12-17] MEDS ORDERED: INSULIN GLARGINE 100 UNIT/ML 10 ML VIAL SQ SCH (09:00)
[2016-12-17] MEDS ORDERED: METOPROLOL TARTRATE 25 MG TAB PO SCH (09:00)
[2016-12-17] MEDS ORDERED: FUROSEMIDE 40 MG TAB PO SCH (09:00)
[2016-12-17] MEDS: cloNIDine HCL 0.1 MG TAB PO SCH ×2 (09:43→16:39)
[2016-12-17] MEDS: CALCIUM ACETATE 667 MG CAP PO SCH ×2 (09:44→16:38)
[2016-12-17] MEDS: hydrALAZINE HCL 50 MG TAB PO SCH ×2 (09:44→16:37)
[2016-12-17] MEDS: INSULIN NPL/INSULIN LISPRO 100 UNIT/ML 10 ML VIAL (Humalog 75/25) SQ SCH ×2 (10:52→12:52)
[2016-12-17 12:03] LABS: Glucose,Whole Blood 325 mg/dL (75-99)
[2016-12-17] MEDS ORDERED: INSULIN LISPRO (humaLOG) 300 UNIT/3 ML VIAL SQ SCH (12:30)
[2016-12-17 14:16] LABS: Hemoglobin A1C 6.7 % (4.2-6.1)
--- NOTE | 2016-12-17 14:42 | P.CRDCN ---
History of Present Illness Consult date: 12/17/16 History of present illness: This is a 51-year-old female with known history of end-stage renal disease on hemodialysis, hypertension, hyperlipidemia and diabetes mellitus. She does not follow with any baggage clerk. She sees a online communications manager and Dr. Bragg. She presented to the emergency department after receiving hemodialysis yesterday with complaints of increasing shortness of breath and a nonproductive cough times one week. She denies chest pain, palpitations, dizziness or nausea or vomiting. She is currently in the process of getting worked up to be placed on the kidney transplant list. Therefore she recently had a stress test and echocardiogram and August of this year. The echocardiogram revealed an ejection fraction of 55%, mild left ventricular hypertrophy, moderately dilated left atrium, mild aortic sclerosis, mild mitral annular calcification, mild mitral regurgitation, mild tricuspid regurgitation and no evidence of pulmonary hypertension with a right ventricular systolic pressure 48.33 mmHg. Lexiscan was negative for any reversible perfusion defects. EKG shows a normal sinus mechanism. Chest x-ray shows vascular congestion and cardiomegaly. Her blood pressure is maintained with hydralazine 100 mg by mouth 3 times a day, clonidine 0.3 mg by mouth 3 times a day, Norvasc 5 mg by mouth daily, Lopressor 25 mg by mouth daily. She is also on Lasix 40 mg by mouth twice a day atorvastatin 40 mg by mouth at bedtime. Her troponins are negative 2, BNP 7480 , triglycerides 606, creatinine 4.8. Review of Systems REVIEW OF SYSTEMS: Patient denies any chest discomfort. No shortness of breath at this time. No diaphoresis. He denies headache, dizziness, blurred vision, double vision. No dyspnea on exertion. Patient denies any stomach discomfort. No nausea, vomiting. No hematochezia. No hematemesis. Denies any black stools or blood in his stools. No syncope. No palpitations. No cough. No recent fever or chills. Denies dysuria or hematuria. No muscle weakness or numbness. Past Medical History Past Medical History: Diabetes Mellitus, Dialysis, Hyperlipidemia, Hypertension , Pneumonia, Renal Disease Additional Past Medical History / Comment(s): Recent bronchitis-completed ABX, hypertriglyceridemia-induced acute pancreatitis, necrotizing pancreatitis-sent [facility], hemodialysis for acute kidney injury 2 months in 2009 after pancreatic surgery, 11/2015 diagnosed with chronic kidney disease-hemodialysis //, IDDM type II, chronic anemia, occasional back pain, carter's palsey x2, past L leg fx. History of Any Multi-Drug Resistant Organisms: None Reported Past Surgical History: Uterine Ablation Additional Past Surgical History / Comment(s): pancreatic resection at [facility] 2009, bone marrow biopsies X2-last one 05/19/16,. dialysis chest port x 2 with removals, Left arm shunt placement for dialysis - December 2015 Past Anesthesia/Blood Transfusion Reactions: No Reported Reaction Additional Past Anesthesia/Blood Transfusion Reaction / Comment(s): Pt has received blood transfusions without reaction-last transfusion 06/04/16. Past Psychological History: No Psychological Hx Reported Additional Psychological History / Comment(s): Pt resides with spouse and 1 adult manish. She is independent. She uses no assistive device. She drives. Smoking Status: Never smoker Past Alcohol Use History: None Reported Additional Past Alcohol Use History / Comment(s): Patient is a lifelong nonsmoker. She denies any medical marijuana, marijuana, street drug use. She drinks alcohol on a very rare basis. She lives at home with her and 21- year-old daughter. There is a cat in the home. 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 Past Drug Use History: None Reported - Past Family History Brother(s) Family Medical History: No Reported History Mother Family Medical History: Cancer, Diabetes Mellitus, Hypertension Additional Family Medical History / Comment(s): Mother of throat cancer at the age of 63 yrs. She was a smoker. Father Family Medical History: Coronary Artery Disease (CAD), Hyperlipidemia, Hypertension Additional Family Medical History / Comment(s): Father is 70 yrs old. Medications and Allergies Home Medications Medication Instructions Recorded Confirmed Type Atorvastatin [Lipitor] 40 mg PO HS 09/14/15 12/17/16 History Cyclobenzaprine [Flexeril] 5 mg PO HS 09/14/15 12/17/16 History Magnesium Gluconate [Magonate] 1,000 mg PO QAM 09/14/15 12/17/16 History Omeprazole [PriLOSEC] 20 mg PO DAILY 09/14/15 12/17/16 History Furosemide [Lasix] 40 mg PO BID 03/12/16 12/17/16 History Lidocaine 4% Cream [Lmx 4] 1 applic TOPICAL [facility] 03/12/16 12/17/16 History Insulin Glargine [Lantus] 70 unit SQ QAM 04/18/16 12/17/16 History Calcium Acetate [PhosLo] 667 mg PO TID 05/14/16 12/17/16 History Prochlorperazine [Compazine] 5 mg PO BID PRN 05/14/16 12/17/16 History Insulin NPL/Insulin Lispro 16 unit SQ AC-TID 06/05/16 12/17/16 History [humaLOG MIX 75-25 VIAL] Triphrocap 1mg 1 cap PO DAILY 09/12/16 12/17/16 History amLODIPine [Norvasc] 5 mg PO DAILY 09/12/16 12/17/16 History Insulin NPL/Insulin Lispro See Protocol SQ AC-TID PRN 12/16/16 12/17/16 History [humaLOG MIX 75-25 VIAL] Magnesium Gluconate [Magonate] 500 mg PO W/LUNCH 12/16/16 12/17/16 History Metoprolol Tartrate [Lopressor] 25 mg PO DAILY 12/16/16 12/17/16 History Sevelamer [Renvela] 1,600 - 2,400 mg PO AC-TID 12/16/16 12/17/16 History Vitamin E 1,000 unit PO DAILY 12/16/16 12/17/16 History cloNIDine HCL 0.3 mg PO TID 12/16/16 12/17/16 History Allergies Allergy/AdvReac Type Severity Reaction Status Date / Time ciprofloxacin [From Cipro] Allergy AFFECTED Verified 12/17/16 01:29 EYESIGHT ciprofloxacin HCl Allergy AFFECTED Verified 12/17/16 01:29 [From Cipro] EYESIGHT Iodinated Contrast- Oral and Allergy RENAL Verified 12/17/16 01:29 IV Dye FAILURE Physical Exam Vitals: Vital Signs Temp Pulse Pulse Pulse Resp BP BP 12/17/16 12:00 98.0 F 77 18 181/81 12/17/16 08:00 97.5 F L 83 16 190/85 12/17/16 04:00 87 18 12/17/16 02:15 98.3 F 87 18 163/76 12/17/16 02:05 86 18 12/17/16 00:51 86 18 186/81 12/17/16 00:23 97.2 F L 85 18 191/88 12/16/16 22:21 99.1 F 83 18 177/75 12/16/16 20:46 83 18 166/71 12/16/16 19:23 72 12/16/16 19:09 89 18 197/85 12/16/16 18:26 98.6 F 96 20 224/93 Pulse Ox 12/17/16 12:00 96 12/17/16 08:00 91 L 12/17/16 04:00 12/17/16 02:15 97 12/17/16 02:05 12/17/16 00:51 95 12/17/16 00:23 94 L 12/16/16 22:21 97 12/16/16 20:46 12/16/16 19:23 12/16/16 19:09 98 12/16/16 18:26 97 Intake and Output 12/16/16 12/17/16 12/17/16 22:59 06:59 14:59 Intake Total 158 Output Total 800 Balance 158 -800 Intake: Intake, IV Titration 108 Amount Heparin Sodium,Porcine/ 108 D5w Pmx 25,000 unit In Dextrose/Water 1 500ml. bag @ 12 UNITS/KG/HR 17. 96 mls/hr IV .Q24H [facility] Rx #:[id number] Oral 50 Output: Urine 800 Other: Voiding Method Toilet Toilet # Voids 3 Weight 74.843 kg 74.843 kg Results 12/16/16 19:05 12/16/16 19:05 Cardiac Enzymes 12/16/16 12/16/16 12/17/16 Range/Units 19:05 19:05 01:03 AST 26 (14-36) U/L CK-MB (CK-2) 1.7 1.4 (0.0-2.4) ng/mL Troponin I <0.012 <0.012 (0.000-0.034) ng/mL 12/17/16 Range/Units 06:30 AST (14-36) U/L CK-MB (CK-2) 1.3 (0.0-2.4) ng/mL Troponin I <0.012 (0.000-0.034) ng/mL Coagulation 12/16/16 12/17/16 Range/Units 19:05 06:30 PT 10.5 (9.0-12.0) sec APTT 23.6 25.1 (22.0-30.0) sec Lipids 12/17/16 Range/Units 06:30 Triglycerides 606 H (<150) mg/dL Cholesterol 109 (<200) mg/dL HDL Cholesterol 23 L (40-60) mg/dL CBC 12/16/16 Range/Units 19:05 WBC 3.9 (3.8-10.6) k/uL RBC 2.26 L (3.80-5.40) m/uL Hgb 8.1 L (11.4-16.0) gm/dL Hct 23.7 L (34.0-46.0) % Plt Count 117 L (150-450) k/uL Comprehensive Metabolic Panel 12/16/16 Range/Units 19:05 Sodium 137 (137-145) mmol/L Potassium 4.7 (3.5-5.1) mmol/L Chloride 94 L (98-107) mmol/L Carbon Dioxide 31 H (22-30) mmol/L BUN 32 H (7-17) mg/dL Creatinine 4.83 H (0.52-1.04) mg/dL Glucose 91 (74-99) mg/dL Calcium 8.6 (8.4-10.2) mg/dL AST 26 (14-36) U/L ALT 40 (9-52) U/L Alkaline Phosphatase 81 (38-126) U/L Total Protein 6.9 (6.3-8.2) g/dL Albumin 4.3 (3.5-5.0) g/dL Current Medications Generic Name Dose Route Start Last Admin Trade Name Freq PRN Reason Stop Dose Admin Amlodipine Besylate 5 mg 12/17/16 09:00 12/17/16 09:44 Norvasc PO 5 mg DAILY [facility] Administration Aspirin 325 mg 12/17/16 09:00 12/17/16 09:46 Aspirin PO Not Given DAILY [facility] Atorvastatin Calcium 40 mg 12/17/16 21:00 Lipitor PO HS [facility] Calcium Acetate 667 mg 12/17/16 09:00 12/17/16 09:44 Phoslo PO 667 mg TID [facility] Administration Clonidine 0.3 mg 12/17/16 09:00 12/17/16 09:43 Catapres PO 0.3 mg TID [facility] Administration Cyclobenzaprine HCl 5 mg 12/17/16 21:00 Flexeril PO HS [facility] Furosemide 40 mg 12/17/16 09:00 12/17/16 09:45 Lasix PO 40 mg BID [facility] Administration Hydralazine HCl 100 mg 12/17/16 09:00 12/17/16 09:44 Apresoline PO 100 mg TID [facility] Administration Heparin Sodium/Dextrose 25,000 500 mls @ 17.96 mls/hr 12/16/16 23:45 00:46 unit/ IV Solution IV 12 units/kg/hr .Q24H [facility] 17.96 mls/hr Protocol Administration 12 UNITS/KG/HR Insulin Glargine 70 unit 12/17/16 09:00 12/17/16 09:46 Lantus SQ 70 unit QAM [facility] Administration Insulin Human Lispro 0 unit 12/17/16 12:30 12/17/16 12:53 Humalog SQ 5 unit ACHS [facility] Administration Protocol Insulin Lispro Protam/Lispro Human 16 unit 12/17/16 07:30 12/17/16 12:52 Humalog Mix 75-25 Vial SQ Not Given AC-TID [facility] Magnesium Oxide 100 mg 12/17/16 12:30 Mag-Ox PO W/LUNCH [facility] Magnesium Oxide 100 mg 12/17/16 09:00 12/17/16 09:45 Mag-Ox PO 100 mg QAM [facility] Administration Metoprolol Tartrate 25 mg 12/17/16 09:00 12/17/16 09:44 Lopressor PO 25 mg DAILY [facility] Administration Nitroglycerin 0.4 mg 12/16/16 23:34 Nitrostat SUBLINGUAL Q5M PRN Chest Pain Pantoprazole Sodium 40 mg 12/17/16 07:30 12/17/16 09:44 Protonix PO 40 mg AC-BRKFST [facility] Administration Prochlorperazine Maleate 5 mg 12/16/16 23:38 Compazine PO BID PRN Nausea Tramadol HCl 50 mg 12/16/16 23:38 12/17/16 11:27 Ultram PO 50 mg TID PRN Administration Pain Vitamin B Complex/Vit C/Vit E/Zinc 1 each 12/17/16 09:00 12/17/16 09:44 Z-Bec PO 1 each DAILY [facility] Administration Vitamin E 800 unit 12/17/16 09:00 12/17/16 09:45 Vitamin E PO 800 unit DAILY [facility] Administration Intake and Output 12/16/16 12/17/16 12/17/16 22:59 06:59 14:59 Intake Total 158 Output Total 800 Balance 158 -800 Intake: Intake, IV Titration 108 Amount Heparin Sodium,Porcine/ 108 D5w Pmx 25,000 unit In Dextrose/Water 1 500ml. bag @ 12 UNITS/KG/HR 17. 96 mls/hr IV .Q24H [facility] Rx #:[id number] Oral 50 Output: Urine 800 Other: Voiding Method Toilet Toilet # Voids 3 Weight 74.843 kg 74.843 kg 12/16/16 19:05 12/16/16 19:05 - EKG Interpretation EKG: sinus rhythm, normal QRS, normal ST/T, no acute changes Assessment and Plan Plan: ASSESSMENT 1. End-stage renal disease on dialysis, Thursday. 2. Hypertension, acute 3. Hyperlipidemia 4. Shortness of breath 5. Chronic anemia PLAN We will increase the Norvasc to 10 mg by mouth daily. Recommendations that the patient should have more fluid removed at dialysis. This has been communicated to the primary care doctor. Although BNP is elevated, we do not believe this is heart failure. Nurse Practitioner note has been reviewed, I agree with a documented findings and plan of care. Patient was seen and examined.
--- NOTE | 2016-12-17 14:43 | P.HPIM ---
History of Present Illness H&P Date: 12/16/16 Chief Complaint: Chest pain 51-year-old female presented on the day of admission to the emergency room with a chief complaint of shortness of breath. Patient stated she had gotten dialyzed earlier in the day. Patient stated that she developed a cough and felt short of breath. She also noted that her blood pressure was high. Came into the emergency room additionally to be evaluated for chest discomfort stated it hurt if she to continue deep breath. In the emergency room the blood pressure was elevated 224/93. 12-lead EKG showed no acute changes. Patient was admitted to the observation unit to the services of the attending with chest protocol initiated a cardiology consult was requested patient had undergone jose stress test on the August showed no acute finding additionally echocardiogram was obtained did show left systolic function normal with an EF between 55 and 60% with no evidence of pulmonary hypertension. Review of Systems Essentially unremarkable except as mentioned in the present illness Past Medical History Past Medical History: Diabetes Mellitus, Dialysis, Hyperlipidemia, Hypertension , Pneumonia, Renal Disease Additional Past Medical History / Comment(s): Recent bronchitis-completed ABX, hypertriglyceridemia-induced acute pancreatitis, necrotizing pancreatitis-sent to [facility], hemodialysis for acute kidney injury 2 months in 2009 after pancreatic surgery, 11/2015 diagnosed with chronic kidney disease-hemodialysis //, IDDM type II, chronic anemia, occasional back pain, carter's palsey x2, past L leg fx. History of Any Multi-Drug Resistant Organisms: None Reported Past Surgical History: Uterine Ablation Additional Past Surgical History / Comment(s): pancreatic resection at [facility] 2009, bone marrow biopsies X2-last one 05/19/16,. dialysis chest port x 2 with removals, Left arm shunt placement for dialysis - December 2015 Past Anesthesia/Blood Transfusion Reactions: No Reported Reaction Additional Past Anesthesia/Blood Transfusion Reaction / Comment(s): Pt has received blood transfusions without reaction-last transfusion 06/04/16. Past Psychological History: No Psychological Hx Reported Additional Psychological History / Comment(s): Pt resides with spouse and 1 adult manish. She is independent. She uses no assistive device. She drives. Smoking Status: Never smoker Past Alcohol Use History: None Reported Additional Past Alcohol Use History / Comment(s): Patient is a lifelong nonsmoker. She denies any medical marijuana, marijuana, street drug use. She drinks alcohol on a very rare basis. She lives at home with her and 21- year-old daughter. There is a cat in the home. 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 Past Drug Use History: None Reported - Past Family History Brother(s) Family Medical History: No Reported History Mother Family Medical History: Cancer, Diabetes Mellitus, Hypertension Additional Family Medical History / Comment(s): Mother of throat cancer at the age of 63 yrs. She was a smoker. Father Family Medical History: Coronary Artery Disease (CAD), Hyperlipidemia, Hypertension Additional Family Medical History / Comment(s): Father is 70 yrs old. Medications and Allergies Home Medications Medication Instructions Recorded Confirmed Type Atorvastatin [Lipitor] 40 mg PO HS 09/14/15 12/17/16 History Cyclobenzaprine [Flexeril] 5 mg PO HS 09/14/15 12/17/16 History Magnesium Gluconate [Magonate] 1,000 mg PO QAM 09/14/15 12/17/16 History Omeprazole [PriLOSEC] 20 mg PO DAILY 09/14/15 12/17/16 History Furosemide [Lasix] 40 mg PO BID 03/12/16 12/17/16 History Lidocaine 4% Cream [Lmx 4] 1 applic [facility] 03/12/16 12/17/16 History Insulin Glargine [Lantus] 70 unit SQ QAM 04/18/16 12/17/16 History Calcium Acetate [PhosLo] 667 mg PO TID 05/14/16 12/17/16 History Prochlorperazine [Compazine] 5 mg PO BID PRN 05/14/16 12/17/16 History Insulin NPL/Insulin Lispro 16 unit SQ AC-TID 06/05/16 12/17/16 History [humaLOG MIX 75-25 VIAL] Triphrocap 1mg 1 cap PO DAILY 09/12/16 12/17/16 History amLODIPine [Norvasc] 5 mg PO DAILY 09/12/16 12/17/16 History Insulin NPL/Insulin Lispro See Protocol SQ AC-TID PRN 12/16/16 12/17/16 History [humaLOG MIX 75-25 VIAL] Magnesium Gluconate [Magonate] 500 mg PO W/LUNCH 12/16/16 12/17/16 History Metoprolol Tartrate [Lopressor] 25 mg PO DAILY 12/16/16 12/17/16 History Sevelamer [Renvela] 1,600 - 2,400 mg PO AC-TID 12/16/16 12/17/16 History Vitamin E 1,000 unit PO DAILY 12/16/16 12/17/16 History cloNIDine HCL 0.3 mg PO TID 12/16/16 12/17/16 History Allergies Allergy/AdvReac Type Severity Reaction Status Date / Time ciprofloxacin [From Cipro] Allergy AFFECTED Verified 12/17/16 01:29 EYESIGHT ciprofloxacin HCl Allergy AFFECTED Verified 12/17/16 01:29 [From Cipro] EYESIGHT Iodinated Contrast- Oral and Allergy RENAL Verified 12/17/16 01:29 IV Dye FAILURE Physical Exam Vitals: Vital Signs Temp Pulse Pulse Pulse Resp BP BP 12/17/16 12:00 98.0 F 77 18 181/81 12/17/16 08:00 97.5 F L 83 16 190/85 12/17/16 04:00 87 18 12/17/16 02:15 98.3 F 87 18 163/76 12/17/16 02:05 86 18 12/17/16 00:51 86 18 186/81 12/17/16 00:23 97.2 F L 85 18 191/88 12/16/16 22:21 99.1 F 83 18 177/75 12/16/16 20:46 83 18 166/71 12/16/16 19:23 72 12/16/16 19:09 89 18 197/85 12/16/16 18:26 98.6 F 96 20 224/93 Pulse Ox 12/17/16 12:00 96 12/17/16 08:00 91 L 12/17/16 04:00 12/17/16 02:15 97 12/17/16 02:05 12/17/16 00:51 95 12/17/16 00:23 94 L 12/16/16 22:21 97 12/16/16 20:46 12/16/16 19:23 12/16/16 19:09 98 12/16/16 18:26 97 Intake and Output 12/16/16 12/17/16 12/17/16 22:59 06:59 14:59 Intake Total 158 240 Output Total 800 Balance 158 -560 Intake: Intake, IV Titration 108 Amount Heparin Sodium,Porcine/ 108 D5w Pmx 25,000 unit In Dextrose/Water 1 500ml. bag @ 12 UNITS/KG/HR 17. 96 mls/hr IV .Q24H [facility] Rx #:[id number] Oral 50 240 Output: Urine 800 Other: Voiding Method Toilet Toilet # Voids 3 Weight 74.843 kg 74.843 kg GENERAL APPEARANCE: 51-year-old female patient is alert, oriented, in no acute distress. VITAL SIGNS: Reviewed HEENT: Head is normocephalic and atraumatic. Pupils are equal and reactive. The nares are patent. Oropharynx is clear without lesions. NECK: Supple without lymphadenopathy. Traches midline. HEART: S1, S2. Regular rate and rhythm. Denying chest pain LUNGS: No crackles or wheezes are heard. Adequate air movement bilaterally ABDOMEN: Soft, nontender, nondistended with good bowel sounds. No peritoneal signs. No palpable organomegaly or masses. EXTREMITIES: Normal skin color and turgor. No cyanosis, rash, ulceration, clubbing or edema. Radial pedal pulses are 2/4 bilaterally. NEUROLOGICAL: No focal deficits. Strength and sensation are grossly intact. Results CBC & Chem 7: 12/16/16 19:05 12/16/16 19:05 Labs: Abnormal Lab Results - Last 24 Hours (Table) 12/16/16 12/16/16 12/16/16 Range/Units 19:05 19:05 19:05 RBC 2.26 L (3.80-5.40) m/uL Hgb 8.1 L (11.4-16.0) gm/dL Hct 23.7 L (34.0-46.0) % MCV 104.8 H (80.0-100.0) fL MCH 35.9 H (25.0-35.0) pg RDW 17.6 H (11.5-15.5) % Plt Count 117 L (150-450) k/uL Lymphocytes # 0.3 L (1.0-4.8) k/uL Chloride 94 L (98-107) mmol/L Carbon Dioxide 31 H (22-30) mmol/L BUN 32 H (7-17) mg/dL Creatinine 4.83 H (0.52-1.04) mg/dL POC Glucose (mg/dL) (75-99) mg/dL Hemoglobin A1c (4.2-6.1) % Total Creatine Kinase 189 H (30-135) U/L Triglycerides (<150) mg/dL HDL Cholesterol (40-60) mg/dL 12/17/16 12/17/16 12/17/16 Range/Units 00:26 00:50 01:03 RBC (3.80-5.40) m/uL Hgb (11.4-16.0) gm/dL Hct (34.0-46.0) % MCV (80.0-100.0) fL MCH (25.0-35.0) pg RDW (11.5-15.5) % Plt Count (150-450) k/uL Lymphocytes # (1.0-4.8) k/uL Chloride (98-107) mmol/L Carbon Dioxide (22-30) mmol/L BUN (7-17) mg/dL Creatinine (0.52-1.04) mg/dL POC Glucose (mg/dL) 64 L 102 H (75-99) mg/dL Hemoglobin A1c (4.2-6.1) % Total Creatine Kinase 168 H (30-135) U/L Triglycerides (<150) mg/dL HDL Cholesterol (40-60) mg/dL 12/17/16 12/17/16 12/17/16 Range/Units 02:07 05:36 06:30 RBC (3.80-5.40) m/uL Hgb (11.4-16.0) gm/dL Hct (34.0-46.0) % MCV (80.0-100.0) fL MCH (25.0-35.0) pg RDW (11.5-15.5) % Plt Count (150-450) k/uL Lymphocytes # (1.0-4.8) k/uL Chloride (98-107) mmol/L Carbon Dioxide (22-30) mmol/L BUN (7-17) mg/dL Creatinine (0.52-1.04) mg/dL POC Glucose (mg/dL) 190 H 289 H (75-99) mg/dL Hemoglobin A1c (4.2-6.1) % Total Creatine Kinase 150 H (30-135) U/L Triglycerides (<150) mg/dL HDL Cholesterol (40-60) mg/dL 12/17/16 12/17/16 12/17/16 Range/Units 06:30 06:30 06:52 RBC (3.80-5.40) m/uL Hgb (11.4-16.0) gm/dL Hct (34.0-46.0) % MCV (80.0-100.0) fL MCH (25.0-35.0) pg RDW (11.5-15.5) % Plt Count (150-450) k/uL Lymphocytes # (1.0-4.8) k/uL Chloride (98-107) mmol/L Carbon Dioxide (22-30) mmol/L BUN (7-17) mg/dL Creatinine (0.52-1.04) mg/dL POC Glucose (mg/dL) 259 H (75-99) mg/dL Hemoglobin A1c 6.7 H (4.2-6.1) % Total Creatine Kinase (30-135) U/L Triglycerides 606 H (<150) mg/dL HDL Cholesterol 23 L (40-60) mg/dL 12/17/16 Range/Units 12:01 RBC (3.80-5.40) m/uL Hgb (11.4-16.0) gm/dL Hct (34.0-46.0) % MCV (80.0-100.0) fL MCH (25.0-35.0) pg RDW (11.5-15.5) % Plt Count (150-450) k/uL Lymphocytes # (1.0-4.8) k/uL Chloride (98-107) mmol/L Carbon Dioxide (22-30) mmol/L BUN (7-17) mg/dL Creatinine (0.52-1.04) mg/dL POC Glucose (mg/dL) 325 H (75-99) mg/dL Hemoglobin A1c (4.2-6.1) % Total Creatine Kinase (30-135) U/L Triglycerides (<150) mg/dL HDL Cholesterol (40-60) mg/dL Thrombosis Risk Factor Assmnt - Choose All That Apply Any of the Below Risk Factors Present?: Yes Each Factor Represents 1 point: Age 41-60 years Thrombosis Risk Factor Assessment Total Risk Factor Score: 1 Thrombosis Risk Factor Assessment Level: Low Risk Assessment and Plan Plan: Impression Present on admission hypertension urgency End-stage renal disease on hemodialysis Present on admission chest pain atypical features Recent stress test August 2016 no acute findings no evidence of ischemia recent echocardiogram August 2016 LV function between 55 and 60% no evidence of pulmonary hypertension Chronic refractory anemia Type 2 diabetes insulin requiring Present on admission anemia of chronic illness due to a combination of underlying mild MDS and chronic kidney disease plan Cardiology consultation Resume home meds as appropriate DVT and GI prophylaxis Follow-up on pending labs Prepped for probable discharge if okay by cardiology service Resume dialysis schedule The above impression and plan of care have been discussed and directed by signing physician. Shakira Dias nurse practitioner acting as scribe for signing physician.
--- NOTE | 2016-12-17 14:50 | P.DS ---
Providers Date of admission: 12/16/16 23:34 Expected date of discharge: 12/17/16 Attending physician: David Bragg Consults: 12/16/16 23:34 Consult Physician Urgent Consulting Provider: Urbano Tesfaye Consult Reason/Comments: Chest pain, congestive heart failure Do you want consulting provider notified?: Yes Primary care physician: [facility] Course: 51-year-old female admitted on the day of admission to the emergency room with hypertension urgency patient had been dialyzed earlier in the day. Patient stated she developed chest tightness with the episode. Patient was admitted to the attending with a cardiology consultation requested. Cardiology indicated the patient's Norvasc to be increased to 10 mg daily. Recommended the patient needed more fluid taken off during dialysis would be no further cardiac workup at this time chest protocol was initiated cardiac enzymes 3 sets were negative patient had recently undergone a stress test in August 2016 which showed no acute findings cardiology indicated there was no further workup at this time and there was no evidence of any heart failure. As mentioned the patient would benefit from more fluid being removed at the time of dialysis. This was communicated to Dr. Bragg. Cardiology indicate the patient could be discharged home. Impression Present on admission hypertension urgency End-stage renal disease on hemodialysis Present on admission chest pain atypical features Recent stress test August 2016 no acute findings no evidence of ischemia recent echocardiogram August 2016 LV function between 55 and 60% no evidence of pulmonary hypertension Chronic refractory anemia Type 2 diabetes insulin requiring Present on admission anemia of chronic illness due to a combination of underlying mild MDS and chronic kidney disease The above impression and plan of care have been discussed and directed by signing physician. Shakira Dias nurse practitioner acting as scribe for signing physician. Patient Condition at Discharge: Good Plan - Discharge Summary New Discharge Prescriptions: New amLODIPine [Norvasc] 10 mg PO DAILY #30 tab Continue Atorvastatin [Lipitor] 40 mg PO HS Omeprazole [PriLOSEC] 20 mg PO DAILY Magnesium Gluconate [Magonate] 1,000 mg PO QAM Cyclobenzaprine [Flexeril] 5 mg PO HS Lidocaine 4% Cream [Lmx 4] 1 applic TOPICAL TUTHSA Furosemide [Lasix] 40 mg PO BID Insulin Glargine [Lantus] 70 unit SQ QAM Prochlorperazine [Compazine] 5 mg PO BID PRN PRN Reason: Nausea Calcium Acetate [PhosLo] 667 mg PO TID Insulin NPL/Insulin Lispro [humaLOG MIX 75-25 VIAL] 16 unit SQ AC-TID hydrALAZINE HCL [Apresoline] 100 mg PO TID #180 tab traMADol HCl [Ultram] 50 mg PO TID PRN #30 tab PRN Reason: Pain Triphrocap 1mg 1 cap PO DAILY Sevelamer [Renvela] 1,600 - 2,400 mg PO AC-TID Metoprolol Tartrate [Lopressor] 25 mg PO DAILY Insulin NPL/Insulin Lispro [humaLOG MIX 75-25 VIAL] See Protocol SQ AC-TID PRN PRN Reason: Blood Pressure - High Magnesium Gluconate [Magonate] 500 mg PO W/LUNCH cloNIDine HCL 0.3 mg PO TID Vitamin E 1,000 unit PO DAILY Discontinued amLODIPine [Norvasc] 5 mg PO DAILY Discharge Medication List Atorvastatin [Lipitor] 40 mg PO HS 09/14/15 [History] Cyclobenzaprine [Flexeril] 5 mg PO HS 09/14/15 [History] Magnesium Gluconate [Magonate] 1,000 mg PO QAM 09/14/15 [History] Omeprazole [PriLOSEC] 20 mg PO DAILY 09/14/15 [History] Furosemide [Lasix] 40 mg PO BID 03/12/16 [History] Lidocaine 4% Cream [Lmx 4] 1 applic TOPICAL TUTHSA 03/12/16 [History] Insulin Glargine [Lantus] 70 unit SQ QAM 04/18/16 [History] Calcium Acetate [PhosLo] 667 mg PO TID 05/14/16 [History] Prochlorperazine [Compazine] 5 mg PO BID PRN 05/14/16 [History] Insulin NPL/Insulin Lispro [humaLOG MIX 75-25 VIAL] 16 unit SQ AC-TID 06/05/16 [ History] hydrALAZINE HCL [Apresoline] 100 mg PO TID #180 tab 06/10/16 [Rx] traMADol HCl [Ultram] 50 mg PO TID PRN #30 tab 06/10/16 [Rx] Triphrocap 1mg 1 cap PO DAILY 09/12/16 [History] Insulin NPL/Insulin Lispro [humaLOG MIX 75-25 VIAL] See Protocol SQ AC-TID PRN 12/16/16 [History] Magnesium Gluconate [Magonate] 500 mg PO W/LUNCH 12/16/16 [History] Metoprolol Tartrate [Lopressor] 25 mg PO DAILY 12/16/16 [History] Sevelamer [Renvela] 1,600 - 2,400 mg PO AC-TID 12/16/16 [History] Vitamin E 1,000 unit PO DAILY 12/16/16 [History] cloNIDine HCL 0.3 mg PO TID 12/16/16 [History] amLODIPine [Norvasc] 10 mg PO DAILY #30 tab 12/17/16 [Rx] Follow up Appointment(s)/Referral(s): David Bragg MD [Primary Care Provider] - 1-2 days Discharge Disposition: HOME SELF-CARE
[2016-12-17 16:37] VITALS: BP 204/91; PULSE 79; RESP 16; TEMP 97.5
[2016-12-17 16:52] LABS: Glucose,Whole Blood 203 mg/dL (75-99)
[2016-12-17] MEDS ORDERED: CYCLOBENZAPRINE 5 MG TAB PO SCH (21:00)
[2016-12-17] MEDS ORDERED: ATORVASTATIN 40 MG TAB PO SCH (21:00)
[2016-12-18] MEDS ORDERED: amLODIPine 10 MG TAB PO SCH (09:00)
== END 2016-12-17 17:13 | disposition home or self-care (01) ==
LOC: EC 18:17 → 3OBS 23:34 → UNDODISOB 12-17 15:18
PROVIDERS: ADMIT Family Medicine; ATTEND Family Medicine
DX: I16.0 Hypertensive urgency (principal); I12.0 Hypertensive chronic kidney disease with stage 5 chronic kidney disease or end stage renal disease; E11.22 Type 2 diabetes mellitus with diabetic chronic kidney disease; N18.6 End stage renal disease; R07.89 Other chest pain; D46.4 Refractory anemia, unspecified; E11.9 Type 2 diabetes mellitus without complications; Z99.2 Dependence on renal dialysis; Z79.899 Other long term (current) drug therapy; Z79.4 Long term (current) use of insulin; Z79.84 Long term (current) use of oral hypoglycemic drugs; Z88.1 Allergy status to other antibiotic agents; Z91.041 Radiographic dye allergy status; E78.5 Hyperlipidemia, unspecified; R06.02 Shortness of breath; D63.8 Anemia in other chronic diseases classified elsewhere; E78.1 Pure hyperglyceridemia; M54.9 Dorsalgia, unspecified; Z76.82 Awaiting organ transplant status
CPT/HCPCS: 99285 ×2; 96375 ×2; 96376 ×2; 96365 ×2; 96366; 36415; 93005; 85379; 83880; 80061; 80053; 83036; 82550 ×2; 82553 ×2; 84484 ×2; 85025; 85610; 85730 ×2; 71020; G0378 ×2; J1644 ×2; J1940

== ENCOUNTER 2017-01-24 11:39 | Outpatient (CLI) | payer OTHER ==
[~2017-01-24 11:39] MED LIST changes: -REGADENOSON 0.4 MG/5 ML SYRINGE IV ONE; +SODIUM CHLORIDE 0.9% 500 ML in EMPTY BAG 1 BAG IV PRN
[2017-01-25 12:32] VITALS: RESP 18
[2017-01-25 12:56] VITALS: PULSE 72
[2017-01-25 14:12] VITALS: BP 155/75; TEMP 97.6
== END 2017-01-25 14:19 | disposition home or self-care (01) ==
LOC: PEDOP 11:39
PROVIDERS: ATTEND Internal Medicine
DX: D50.9 Iron deficiency anemia, unspecified (principal); D63.1 Anemia in chronic kidney disease; R06.02 Shortness of breath
CPT/HCPCS: 36430; 86900; 86901; 86850; 86920; P9040; P9016

== ENCOUNTER 2017-02-06 23:08 | Inpatient (IN) | payer OTHER ==
[2017-02-06] MEDS ORDERED: FUROSEMIDE 10 MG/ML 4 ML VIAL IV STA (23:37)
[2017-02-06] MEDS ORDERED: NITROGLYCERIN OINT 1 INCH/GM PACKET TOPICAL STA (23:38)
[2017-02-06] MEDS ORDERED: hydrALAZINE HCL 20 MG/ML 1 ML VIAL IVP STA (23:38)
[2017-02-06 23:56] LABS: Anisocytosis Slight; Basophils % (A) 0 %; CH 34.2; CHCM 33.4; Eosinophils # (A) 0.1 k/uL (0-0.7); Eosinophils % (A) 1 %; HCT 25.6 % (34.0-46.0); HDW 3.63; HGB 8.5 gm/dL (11.4-16.0); Hypochromasia Slight; Luc # (Auto) 0.02; Luc % (Auto) 1; Lymphocytes # (A) 0.2 k/uL (1.0-4.8); Lymphocytes % (A) 5 %; MCH 34.1 pg (25.0-35.0); MCHC 33.2 g/dL (31.0-37.0); MCV 102.9 fL (80.0-100.0); Macrocytosis Moderate; Mean Platelet Volume 7.9; Monocytes # (A) 0.1 k/uL (0-1.0); Monocytes % (A) 4 %; Neutrophils # (A) 3.2 k/uL (1.3-7.7); Neutrophils % (A) 89 %; Poikilocytosis Slight; RBC 2.49 m/uL (3.80-5.40); RDW 17.2 % (11.5-15.5); WBC 3.7 k/uL (3.8-10.6); WBC (Perox) 3.82
[2017-02-06 23:57] LABS: Calcium 8.6 mg/dL (8.4-10.2); Total Protein 6.4 g/dL (6.3-8.2)
[2017-02-07] LABS: Partial Thromboplastin Time 23.8 sec (22.0-30.0); Prothrombin Time 10.3 sec (9.0-12.0)
--- NOTE | 2017-02-07 00:04 | ED ---
SOB HPI - General Chief Complaint: Shortness of Breath Stated Complaint: Difficulty Breathing Time Seen by Provider: 02/06/17 23:23 Source: patient Mode of arrival: ambulatory Limitations: no limitations - History of Present Illness Initial Comments: This patient is a 51 -year-old woman with history of end-stage renal disease taking hemodialysis, who presents tonight because she felt she was getting short of breath every time she would go to lie down to sleep tonight. Patient states she had similar symptoms almost couple weeks ago and was told she had congestive heart failure. Patient states she has also had a little bit of a cough with some clear sputum tonight. In addition she had some right upper chest pain that she was describing as a pressure feeling. The patient denies recent fever or chills. She has not had a productive cough. She is not feeling very short of breath when she sits upright. She has not had any change in urination, and does continue to urinate despite the renal failure. The patient denies any swelling or pain in the legs. She has not had change in bowel movements. MD Complaint: shortness of breath -: minutes(s) Quality: dull Consistency: constant Improves With: nothing Worsens With: lying flat Known History Of: congestive heart failure, other (Dialysis patient) Associated Symptoms: cough, orthopnea - Related Data Home Oxygen Therapy: No Home Medications Medication Instructions Recorded Confirmed Atorvastatin [Lipitor] 40 mg PO HS 09/14/15 12/17/16 Cyclobenzaprine [Flexeril] 5 mg PO HS 09/14/15 12/17/16 Magnesium Gluconate [Magonate] 1,000 mg PO QAM 09/14/15 12/17/16 Omeprazole [PriLOSEC] 20 mg PO DAILY 09/14/15 12/17/16 Furosemide [Lasix] 40 mg PO BID 03/12/16 12/17/16 Lidocaine 4% Cream [Lmx 4] 1 applic TOPICAL TUTHSA 03/12/16 12/17/16 Insulin Glargine [Lantus] 70 unit SQ QAM 04/18/16 12/17/16 Calcium Acetate [PhosLo] 667 mg PO TID 05/14/16 12/17/16 Prochlorperazine [Compazine] 5 mg PO BID PRN 05/14/16 12/17/16 Insulin NPL/Insulin Lispro 16 unit SQ AC-TID 06/05/16 12/17/16 [humaLOG MIX 75-25 VIAL] Triphrocap 1mg 1 cap PO DAILY 09/12/16 12/17/16 Insulin NPL/Insulin Lispro See Protocol SQ AC-TID PRN 12/16/16 12/17/16 [humaLOG MIX 75-25 VIAL] Magnesium Gluconate [Magonate] 500 mg PO W/LUNCH 12/16/16 12/17/16 Metoprolol Tartrate [Lopressor] 25 mg PO DAILY 12/16/16 12/17/16 Sevelamer [Renvela] 1,600 - 2,400 mg PO AC-TID 12/16/16 12/17/16 Vitamin E 1,000 unit PO DAILY 12/16/16 12/17/16 cloNIDine HCL 0.3 mg PO TID 12/16/16 12/17/16 Previous Rx's Medication Instructions Recorded hydrALAZINE HCL [Apresoline] 100 mg PO TID #180 tab 06/10/16 traMADol HCl [Ultram] 50 mg PO TID PRN #30 tab 06/10/16 amLODIPine [Norvasc] 10 mg PO DAILY #30 tab 12/17/16 Allergies Allergy/AdvReac Type Severity Reaction Status Date / Time ciprofloxacin [From Cipro] Allergy AFFECTED Verified 12/17/16 01:29 EYESIGHT ciprofloxacin HCl Allergy AFFECTED Verified 12/17/16 01:29 [From Cipro] EYESIGHT Iodinated Contrast- Oral and Allergy RENAL Verified 12/17/16 01:29 IV Dye FAILURE Review of Systems ROS Statement: Those systems with pertinent positive or pertinent negative responses have been documented in the HPI. ROS Other: All systems not noted in ROS Statement are negative. Constitutional: Denies: fever, chills, weakness Respiratory: Reports: as per HPI, cough. Denies: dyspnea, wheezes, hemoptysis Cardiovascular: Reports: as per HPI, chest pain, orthopnea. Denies: palpitations, dyspnea on exertion, edema, syncope Gastrointestinal: Denies: abdominal pain, vomiting, diarrhea, melena, hematochezia Genitourinary: Denies: dysuria, hematuria Musculoskeletal: Denies: back pain Skin: Denies: rash Neurological: Denies: headache Past Medical History Past Medical History: Diabetes Mellitus, Dialysis, Hyperlipidemia, Hypertension , Pneumonia, Renal Disease Additional Past Medical History / Comment(s): Recent bronchitis-completed ABX, hypertriglyceridemia-induced acute pancreatitis, necrotizing pancreatitis-sent to [facility], hemodialysis for acute kidney injury 2 months in 2009 after pancreatic surgery, 11/2015 diagnosed with chronic kidney disease-hemodialysis //, IDDM type II, chronic anemia, occasional back pain, carter's palsey x2, past L leg fx. History of Any Multi-Drug Resistant Organisms: None Reported Past Surgical History: Uterine Ablation Additional Past Surgical History / Comment(s): pancreatic resection at [facility] 2009, bone marrow biopsies X2-last one 05/19/16,. dialysis chest port x 2 with removals, Left arm shunt placement for dialysis - December 2015 Past Anesthesia/Blood Transfusion Reactions: No Reported Reaction Additional Past Anesthesia/Blood Transfusion Reaction / Comment(s): Pt has received blood transfusions without reaction-last transfusion 06/04/16. Past Psychological History: No Psychological Hx Reported Smoking Status: Never smoker Past Alcohol Use History: None Reported Past Drug Use History: None Reported - Past Family History Brother(s) Family Medical History: No Reported History Mother Family Medical History: Cancer, Diabetes Mellitus, Hypertension Additional Family Medical History / Comment(s): Mother of throat cancer at the age of 63 yrs. She was a smoker. Father Family Medical History: Coronary Artery Disease (CAD), Hyperlipidemia, Hypertension Additional Family Medical History / Comment(s): Father is 70 yrs old. General Exam Limitations: no limitations General appearance: alert, in no apparent distress Head exam: Present: atraumatic, normocephalic Eye exam: Present: normal appearance. Absent: scleral icterus, conjunctival injection ENT exam: Present: normal oropharynx Respiratory exam: Present: rales (Bilateral bases). Absent: respiratory distress, wheezes, rhonchi, stridor, chest wall tenderness, accessory muscle use , decreased breath sounds, prolonged expiratory Cardiovascular Exam: Present: normal rhythm, tachycardia (Rate approximately 104 at my exam), gallop. Absent: systolic murmur, diastolic murmur, rubs GI/Abdominal exam: Present: soft. Absent: distended, tenderness, guarding, rebound, mass Extremities exam: Present: normal inspection, normal capillary refill. Absent: pedal edema, calf tenderness Back exam: Present: normal inspection. Absent: vertebral tenderness Neurological exam: Present: alert Skin exam: Present: warm, dry, intact, normal color. Absent: rash Course Vital Signs 02/06/17 02/06/17 02/06/17 23:19 23:21 23:43 Temperature 98.2 F Pulse Rate 109 H 97 Respiratory 18 20 18 Rate Blood Pressure 238/105 243/111 O2 Sat by Pulse 92 L 94 L Oximetry 02/07/17 02/07/17 02/07/17 00:05 00:35 00:48 Temperature Pulse Rate 104 H 107 H 100 Respiratory 18 18 18 Rate Blood Pressure 227/102 249/114 244/113 O2 Sat by Pulse 94 L 92 L 95 Oximetry 02/07/17 02/07/17 02/07/17 01:09 01:41 02:30 Temperature Pulse Rate 101 H 97 94 Respiratory 18 20 20 Rate Blood Pressure 220/101 205/92 201/91 O2 Sat by Pulse 97 99 95 Oximetry 02/07/17 02/07/17 02/07/17 03:10 03:41 04:26 Temperature Pulse Rate 91 90 87 Respiratory 16 16 16 Rate Blood Pressure 195/91 185/81 185/81 O2 Sat by Pulse 98 98 98 Oximetry - Reevaluation(s) Reevaluation #1: 02/07/17 04:31 Case D/W Dr Bobby Medical Decision Making - Medical Decision Making Patient is a 51-year-old woman with end-stage renal disease on hemodialysis who presents with hypertensive emergency and some pulmonary edema. Patient given trial of BiPAP but had too much anxiety. She also had IV antihypertensives tried and then when these did not change her blood pressure she had IV nitroglycerin which has decreased her blood pressure and her respiratory status has improved she is now able to lie flat. The case has been discussed with Dr. Singh, covering nephrology and dialysis will be arranged in the morning as patient has stabilized. We are waiting a return call from salary and wage administrator and patient will go to the ICU. - Lab Data Result diagrams: 02/06/17 23:30 02/06/17 23:30 Lab Results 02/06/17 02/06/17 02/06/17 Range/Units 23:30 23:30 23:30 WBC 3.7 L (3.8-10.6) k/uL RBC 2.49 L (3.80-5.40) m/uL Hgb 8.5 L (11.4-16.0) gm/dL Hct 25.6 L (34.0-46.0) % MCV 102.9 H (80.0-100.0) fL MCH 34.1 (25.0-35.0) pg MCHC 33.2 (31.0-37.0) g/dL RDW 17.2 H (11.5-15.5) % Plt Count 80 L (150-450) k/uL Neutrophils % 89 % Lymphocytes % 5 % Monocytes % 4 % Eosinophils % 1 % Basophils % 0 % Neutrophils # 3.2 (1.3-7.7) k/uL Lymphocytes # 0.2 L (1.0-4.8) k/uL Monocytes # 0.1 (0-1.0) k/uL Eosinophils # 0.1 (0-0.7) k/uL Basophils # 0.0 (0-0.2) k/uL Manual Slide Review Performed Hypochromasia Slight Poikilocytosis Slight Anisocytosis Slight Macrocytosis Moderate PT (9.0-12.0) sec INR (<1.2) APTT (22.0-30.0) sec Sodium 133 L (137-145) mmol/L Potassium 4.8 (3.5-5.1) mmol/L Chloride 95 L (98-107) mmol/L Carbon Dioxide 25 (22-30) mmol/L Anion Gap 13 mmol/L BUN 53 H (7-17) mg/dL Creatinine 6.10 H* (0.52-1.04) mg/dL Est GFR (MDRD) Af Amer 9 (>60 ml/min/1.73 sqM) Est GFR (MDRD) Non-Af 7 (>60 ml/min/1.73 sqM) Glucose 457 H* (74-99) mg/dL POC Glucose (mg/dL) (75-99) mg/dL POC Glu Chain Forming Machine Operator ID Calcium 8.6 (8.4-10.2) mg/dL Total Bilirubin 1.0 (0.2-1.3) mg/dL AST 35 (14-36) U/L ALT 51 (9-52) U/L Alkaline Phosphatase 161 H (38-126) U/L Total Creatine Kinase 177 H (30-135) U/L CK-MB (CK-2) 1.8 (0.0-2.4) ng/mL CK-MB (CK-2) Rel Index 1.0 Troponin I 0.021 (0.000-0.034) ng/mL NT-Pro-B Natriuret Pep pg/mL Total Protein 6.4 (6.3-8.2) g/dL Albumin 4.1 (3.5-5.0) g/dL 02/06/17 02/06/17 02/07/17 Range/Units 23:30 23:30 00:54 WBC (3.8-10.6) k/uL RBC (3.80-5.40) m/uL Hgb (11.4-16.0) gm/dL Hct (34.0-46.0) % MCV (80.0-100.0) fL MCH (25.0-35.0) pg MCHC (31.0-37.0) g/dL RDW (11.5-15.5) % Plt Count (150-450) k/uL Neutrophils % % Lymphocytes % % Monocytes % % Eosinophils % % Basophils % % Neutrophils # (1.3-7.7) k/uL Lymphocytes # (1.0-4.8) k/uL Monocytes # (0-1.0) k/uL Eosinophils # (0-0.7) k/uL Basophils # (0-0.2) k/uL Manual Slide Review Hypochromasia Poikilocytosis Anisocytosis Macrocytosis PT 10.3 (9.0-12.0) sec INR 1.0 (<1.2) APTT 23.8 (22.0-30.0) sec Sodium (137-145) mmol/L Potassium (3.5-5.1) mmol/L Chloride (98-107) mmol/L Carbon Dioxide (22-30) mmol/L Anion Gap mmol/L BUN (7-17) mg/dL Creatinine (0.52-1.04) mg/dL Est GFR (MDRD) Af Amer (>60 ml/min/1.73 sqM) Est GFR (MDRD) Non-Af (>60 ml/min/1.73 sqM) Glucose (74-99) mg/dL POC Glucose (mg/dL) 369 H (75-99) mg/dL POC Glu Chain Forming Machine Operator Lidia Mayo Calcium (8.4-10.2) mg/dL Total Bilirubin (0.2-1.3) mg/dL AST (14-36) U/L ALT (9-52) U/L Alkaline Phosphatase (38-126) U/L Total Creatine Kinase (30-135) U/L CK-MB (CK-2) (0.0-2.4) ng/mL CK-MB (CK-2) Rel Index Troponin I (0.000-0.034) ng/mL NT-Pro-B Natriuret Pep 6200 pg/mL Total Protein (6.3-8.2) g/dL Albumin (3.5-5.0) g/dL - EKG Data -: EKG Interpreted by Me EKG shows normal: sinus rhythm, axis (Normal), intervals (Normal), QRS complexes (Normal), ST-T waves (Normal) Rate: tachycardia (Rate 101 bpm) Critical Care Time Critical Care Time: Yes (45 minutes) Disposition Clinical Impression: Hypertension, uncontrolled, Pulmonary edema, ESRD (end stage renal disease) on dialysis, Hyperglycemia, Anemia Disposition: ADMITTED IP TO THIS [facility] Condition: Serious Referrals: David Bragg MD [Primary Care Provider] - 1-2 days
--- NOTE | 2017-02-07 00:05 | XR ---
EXAMINATION TYPE: XR chest 1V portable DATE OF EXAM: 02/06/2017 COMPARISON: 12/16/2016 HISTORY: Difficulty breathing TECHNIQUE: Single frontal view of the chest is obtained. FINDINGS: Heart is enlarged. There is pulmonary alveolar edema. Bony thorax is intact. There is no s ign of pleural effusion. IMPRESSION: Pulmonary edema that appears new compared to 12/16/2016. This could be acute congestive he art failure.
[2017-02-07 00:15] LABS: Potassium 4.8 mmol/L (3.5-5.1)
[2017-02-07] MEDS ORDERED: NITROGLYCERIN-D5W PMX 50 MG in DEXTROSE/WATER 1 250ML.BAG IV ONE (00:15)
[2017-02-07] MEDS ORDERED: INSULIN REGULAR 100 UNIT/ML VIAL SQ STA (00:18)
[2017-02-07 00:22] LABS: Manual Review Performed
[2017-02-07 00:23] LABS: Creatine Kinase MB 1.8 ng/mL (0.0-2.4); Troponin I 0.021 ng/mL (0.000-0.034)
[2017-02-07 01:08] LABS: Glucose,Whole Blood 369 mg/dL (75-99)
[2017-02-07] MEDS ORDERED: FUROSEMIDE 10 MG/ML 4 ML VIAL IV STA (02:25)
[2017-02-07] MEDS: SODIUM CHLORIDE 0.9% 1,000 ML IV SCH (04:38)
[2017-02-07 05:20] LABS: Glucose,Whole Blood 249 mg/dL (75-99)
[2017-02-07] MEDS ORDERED: NALOXONE 0.4 MG/ML 1 ML VIAL IV PRN (05:55)
[2017-02-07] MEDS ORDERED: CLEVIDIPINE BUTYRATE 25 MG in EMPTY BAG 1 BAG IV SCH (06:15)
[2017-02-07] MEDS: MAGNESIUM OXIDE 400 MG TAB PO SCH ×2 (06:19→13:17)
[2017-02-07] MEDS: PANTOPRAZOLE 40 MG TABLET PO SCH (06:20)
[2017-02-07] MEDS: hydrALAZINE HCL 50 MG TAB PO SCH ×3 (06:20→21:08)
[2017-02-07] MEDS: cloNIDine HCL 0.1 MG TAB PO SCH ×3 (06:20→21:08)
[2017-02-07] MEDS: VITAMIN E (DL,TOCOPHERYL ACET) 400 UNIT CAP PO SCH (06:21)
[2017-02-07] MEDS: traMADol 50 MG TAB PO PRN ×2 (06:25→13:16)
[2017-02-07 07:28] LABS: Anisocytosis Slight; Basophils % (A) 0 %; CH 33.5; CHCM 32.1; Eosinophils # (A) 0.1 k/uL (0-0.7); Eosinophils % (A) 1 %; HCT 22.8 % (34.0-46.0); HDW 3.55; HGB 7.2 gm/dL (11.4-16.0); Hypochromasia Slight; Luc # (Auto) 0.03; Luc % (Auto) 1; Lymphocytes # (A) 0.3 k/uL (1.0-4.8); Lymphocytes % (A) 9 %; MCH 33.3 pg (25.0-35.0); MCHC 31.6 g/dL (31.0-37.0); MCV 105.1 fL (80.0-100.0); Macrocytosis Moderate; Mean Platelet Volume 7.5; Monocytes # (A) 0.2 k/uL (0-1.0); Monocytes % (A) 5 %; Neutrophils % (A) 84 %; Poikilocytosis Slight; RBC 2.17 m/uL (3.80-5.40); RDW 17.1 % (11.5-15.5); WBC 3.6 k/uL (3.8-10.6); WBC (Perox) 3.66
[2017-02-07 07:46] LABS: Calcium 8.7 mg/dL (8.4-10.2); Magnesium 1.8 mg/dL (1.6-2.3); Phosphorus 4.5 mg/dL (2.5-4.5)
[2017-02-07 08:16] LABS: Glucose,Whole Blood 230 mg/dL (75-99)
[2017-02-07] MEDS: INSULIN NPL/INSULIN LISPRO 100 UNIT/ML 10 ML VIAL (Humalog 75/25) SQ SCH ×3 (08:31→17:39)
[2017-02-07] MEDS: amLODIPine 10 MG TAB PO SCH (08:35)
[2017-02-07] MEDS: SEVELAMER 800 MG TAB PO SCH ×3 (08:35→17:36)
[2017-02-07] MEDS: FOLIC ACID-VIT B COMPLEX-VIT C 1 CAP PO SCH (08:36)
[2017-02-07] MEDS: CALCIUM ACETATE 667 MG CAP PO SCH ×3 (08:36→21:07)
--- NOTE | 2017-02-07 08:38 | P.NPCON ---
History of Present Illness - Reason for Consult Consult date: 02/07/17 end stage renal disease - Chief Complaint Shortness of breath - History of Present Illness This is a 51-year-old diabetic, ESRD on dialysis Thursday came in because of shortness of breath that started about a week ago. She was last dialyzed as scheduled 2 days ago. She came into the emergency room yesterday late night with worsening shortness of breath. No fever chills. No chest pain. She is known diabetic for the last 16 years and has been on dialysis for about 1 year. She says she is on dialysis for about 3-1/2-4 hours. She is not aware of how much fluid was taken off usually. No nausea vomiting diarrhea appetite is good. Denies any history of laser treatment. Memory seems to be somewhat less than optimal. Hypertriglyceridemia and pancreatitis, previous acute kidney injury requiring dialysis for 2 months in 2009. 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 Additionally she is known with chronic anemia and bone marrow biopsies in the past he is supposed to have a possible myelodysplastic syndrome. She is requiring larger doses of DEVENDRA. Past Medical History Past Medical History: Diabetes Mellitus, Dialysis, Hyperlipidemia, Hypertension , Pneumonia, Renal Disease Additional Past Medical History / Comment(s): Recent bronchitis-completed ABX, hypertriglyceridemia-induced acute pancreatitis, necrotizing pancreatitis-sent to [facility], hemodialysis for acute kidney injury 2 months in 2009 after pancreatic surgery, 11/2015 diagnosed with chronic kidney disease-hemodialysis //, IDDM type II, chronic anemia, occasional back pain, hoffman's palsey x2, past L leg fx. History of Any Multi-Drug Resistant Organisms: None Reported Past Surgical History: Uterine Ablation Additional Past Surgical History / Comment(s): pancreatic resection at [facility] 2009, bone marrow biopsies X2-last one 05/19/16,. dialysis chest port x 2 with removals, Left arm shunt placement for dialysis - December 2015 Past Anesthesia/Blood Transfusion Reactions: No Reported Reaction Additional Past Anesthesia/Blood Transfusion Reaction / Comment(s): Pt has received blood transfusions without reaction-last transfusion 06/04/16. Past Psychological History: No Psychological Hx Reported Additional Psychological History / Comment(s): Pt resides with spouse and 1 adult manish. She is independent. She uses no assistive device. She drives. Smoking Status: Never smoker Past Alcohol Use History: None Reported Additional Past Alcohol Use History / Comment(s): Patient is a lifelong nonsmoker. She denies any medical marijuana, marijuana, street drug use. She drinks alcohol on a very rare basis. She lives at home with her and 21- year-old daughter. There is a cat in the home. 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 Past Drug Use History: None Reported - Past Family History Brother(s) Family Medical History: No Reported History Mother Family Medical History: Cancer, Diabetes Mellitus, Hypertension Additional Family Medical History / Comment(s): Mother of throat cancer at the age of 63 yrs. She was a smoker. Father Family Medical History: Coronary Artery Disease (CAD), Hyperlipidemia, Hypertension Additional Family Medical History / Comment(s): Father is 70 yrs old. Medications and Allergies Home Medications Medication Instructions Recorded Confirmed Type Atorvastatin [Lipitor] 40 mg PO HS 09/14/15 12/17/16 History Cyclobenzaprine [Flexeril] 5 mg PO HS 09/14/15 12/17/16 History Magnesium Gluconate [Magonate] 1,000 mg PO QAM 09/14/15 12/17/16 History Omeprazole [PriLOSEC] 20 mg PO DAILY 09/14/15 12/17/16 History Furosemide [Lasix] 40 mg PO BID 03/12/16 12/17/16 History Lidocaine 4% Cream [Lmx 4] 1 applic TOPICAL TUTHSA 03/12/16 12/17/16 History Insulin Glargine [Lantus] 70 unit SQ QAM 04/18/16 12/17/16 History Calcium Acetate [PhosLo] 667 mg PO TID 05/14/16 12/17/16 History Prochlorperazine [Compazine] 5 mg PO BID PRN 05/14/16 12/17/16 History Insulin NPL/Insulin Lispro 16 unit SQ AC-TID 06/05/16 12/17/16 History [humaLOG MIX 75-25 VIAL] hydrALAZINE HCL [Apresoline] 100 mg PO TID #180 tab 06/10/16 12/17/16 Rx traMADol HCl [Ultram] 50 mg PO TID PRN #30 tab 06/10/16 12/17/16 Rx Triphrocap 1mg 1 cap PO DAILY 09/12/16 12/17/16 History Insulin NPL/Insulin Lispro See Protocol SQ AC-TID PRN 12/16/16 12/17/16 History [humaLOG MIX 75-25 VIAL] Magnesium Gluconate [Magonate] 500 mg PO W/LUNCH 12/16/16 12/17/16 History Metoprolol Tartrate [Lopressor] 25 mg PO DAILY 12/16/16 12/17/16 History Sevelamer [Renvela] 1,600 - 2,400 mg PO AC-TID 12/16/16 12/17/16 History Vitamin E 1,000 unit PO DAILY 12/16/16 12/17/16 History cloNIDine HCL 0.3 mg PO TID 12/16/16 12/17/16 History amLODIPine [Norvasc] 10 mg PO DAILY #30 tab 12/17/16 Rx Allergies Allergy/AdvReac Type Severity Reaction Status Date / Time ciprofloxacin [From Cipro] Allergy AFFECTED Verified 12/17/16 01:29 EYESIGHT ciprofloxacin HCl Allergy AFFECTED Verified 12/17/16 01:29 [From Cipro] EYESIGHT Iodinated Contrast- Oral and Allergy RENAL Verified 12/17/16 01:29 IV Dye FAILURE Physical Exam Vitals: Vital Signs Temp Pulse Resp BP BP Pulse Ox 02/07/17 08:00 98.4 F 83 24 165/66 98 02/07/17 07:30 83 20 168/71 98 02/07/17 07:00 84 23 169/72 98 02/07/17 06:50 85 26 H 177/75 98 02/07/17 06:40 85 16 178/77 98 02/07/17 06:30 85 31 H 171/81 99 02/07/17 06:20 87 16 180/83 99 02/07/17 06:10 88 18 175/75 98 02/07/17 06:00 88 24 171/77 99 02/07/17 05:50 87 16 175/75 99 02/07/17 05:40 87 17 165/72 98 02/07/17 05:30 93 27 H 179/83 99 02/07/17 05:20 90 183/80 99 02/07/17 05:18 91 02/07/17 04:35 98.5 F 17 165/72 09/30/17 04:26 87 16 185/81 98 02/07/17 03:41 90 16 185/81 98 02/07/17 03:10 91 16 195/91 98 02/07/17 02:30 94 20 201/91 95 02/07/17 01:41 97 20 205/92 99 02/07/17 01:09 101 H 18 220/101 97 02/07/17 00:48 100 18 244/113 95 02/07/17 00:35 107 H 18 249/114 92 L 02/07/17 00:05 104 H 18 227/102 94 L 02/06/17 23:43 97 18 243/111 94 L 02/06/17 23:21 20 02/06/17 23:19 98.2 F 109 H 18 238/105 92 L Intake and Output 02/06/17 02/07/17 02/07/17 22:59 06:59 14:59 Intake Total 22.2 55 Output Total 450 Balance 22.2 -395 Intake: IV 20 35 Nitroglycerin-D5w Pmx 50 20 35 mg In Dextrose/Water 1 250ml.bag @ 20 MCG/MIN 6 mls/hr IV .Q24H [facility] Rx#: [id number] Intake, IV Titration 2.2 20 Amount Nitroglycerin-D5w Pmx 50 2.2 mg In Dextrose/Water 1 250ml.bag @ 20 MCG/MIN 6 mls/hr IV .Q24H ONE Rx#: [id number] Sodium Chloride 0.9% 1, 20 000 ml @ 20 mls/hr IV . Q24H [facility] Rx#:[id number] Output: Urine 450 Other: Weight 78.1 kg On examination she is awake alert oriented. She is on nasal cannula oxygen. She is on nitroglycerin drip for blood pressure control. Pressures are in the 160-180 range. HEENT exam no JVP neck is supple no facial asymmetry Pupils are equal and reactive. Heart sounds are unremarkable for any murmur rub gallop normal sinus rhythm on the monitor Lungs are clear to auscultation with an occasional fine crackle at bases good air entry bilaterally no dullness percussion Abdomen is soft nontender no organomegaly status masses Extremity exam was trace edema Warm to touch. Neurologically awake alert oriented 3 but poor memory. No focal motor deficit. Results - Lab Results Most recent lab results Calcium 8.7 mg/dL (8.4-10.2) 02/07/17 06:41 Phosphorus 4.5 mg/dL (2.5-4.5) 02/07/17 06:41 Magnesium 1.8 mg/dL (1.6-2.3) 02/07/17 06:41 02/07/17 06:41 02/07/17 06:41 Assessment and Plan Plan: Impression 1. ESRD on dialysis Thursday, dialyzed through a Edilma fistula on the left upper arm 2. Admitted with congestive heart failure and shortness of breath. No evidence of acute NC 3. Blood pressure uncontrolled. Blood pressure currently in the 160s 4. Chronic anemia with bone marrow biopsies twice 1 recently in 2017 suggestive of some myelodysplastic picture. Hemoglobin 7.2 this morning down from 8.5 yesterday 5. Diabetes type 2 for the last 16 years approximately diagnosed 2001. 6. MBD controlled calcium is 8.7 phosphorus 4.5 7. Rule out iron deficiency 8. History of cramps both during and off of dialysis Recommendation. 1. will be dialyzed today will take off 4 L over 4 hours. 2. Check serum magnesium 3. Start Carnitor as it has been known to help cramps. 4. She may benefit from being on home hemodialysis, which her inability to be trained for this may be suspect because of her memory being somewhat less than adequate. 5. No need to start IV antihypertensives as this blood pressure can be easily controlled with dialysis hopefully. Thank you for this consultation please feel free to call me if you have any questions
[2017-02-07 08:40] LABS: Appearance,Urine Clear (Clear); Bacteria,Urine Rare /hpf; Bilirubin,Urine Negative (Negative); Glucose,Urine (UA) Negative (Negative); Ketones,Urine Negative (Negative); Leukocyte Esterase,Urine Negative (Negative); Mucus,Urine Rare /hpf; Nitrite,Urine Negative (Negative); Particle Count 273; Protein,Urine 2+ (Negative); Specific Gravity,Urine 1.006 (1.001-1.035); Squamous Epithelial Cell,Urine <1 /hpf (0-4); UA Billing (MACRO vs. MICRO) MICRO; Urobilinogen,Urine <2.0 mg/dL (<2.0); WBC,Urine <1 /hpf (0-5)
--- NOTE | 2017-02-07 08:43 | XR ---
EXAMINATION TYPE: XR chest 1V portable DATE OF EXAM: 02/07/2017 HISTORY: CHF. REFERENCE: Previous study dated 02/06/2017. FINDINGS: The heart is enlarged. There is improving interstitial change. I suspect small effusions. IMPRESSION: IMPROVING CHANGES OF PULMONARY EDEMA.
[2017-02-07] MEDS ORDERED: METOPROLOL TARTRATE 25 MG TAB PO SCH (09:00)
[2017-02-07] MEDS ORDERED: FUROSEMIDE 40 MG TAB PO SCH (09:00)
[2017-02-07] MEDS: INSULIN GLARGINE 100 UNIT/ML 10 ML VIAL SQ SCH (09:30)
[2017-02-07] MEDS: INSULIN LISPRO (humaLOG) 300 UNIT/3 ML VIAL SQ SCH ×4 (09:41→21:04)
[2017-02-07] MEDS: FUROSEMIDE 40 MG TAB PO SCH ×2 (09:42→16:05)
[2017-02-07] MEDS: levOCARNitine (WITH SUGAR) 100 MG/ML BOTTLE PO SCH ×2 (09:43→21:06)
[2017-02-07] MEDS: LIDOCAINE 4% CREAM 5 GM TUBE TOPICAL SCH (09:44)
--- NOTE | 2017-02-07 10:23 | ECHOF ---
Referral Reason:chf MEASUREMENTS -------- HEIGHT: 160.0 cm WEIGHT: 78.0 kg BP: 162/65 RVIDd: 3.3 cm (< 3.3) IVSd: 1.5 cm (0.6 - 1.1) LVIDd: 4.7 cm (3.9 - 5.3) LVPWd: 1.5 cm (0.6 - 1.1) IVSs: 2.1 cm LVIDs: 2.9 cm LVPWs: 2.2 cm LA Diam: 4.2 cm (2.7 - 3.8) LAESV Index (A-L): 39.52 ml/m Ao Diam: 3.3 cm (2.0 - 3.7) AV Cusp: 2.3 cm (1.5 - 2.6) MV EXCURSION: 15.965 mm (> 18.000) MV EF SLOPE: 47 mm/s (70 - 150) EPSS: 0.5 cm MV E Armando: 1.91 m/s MV DecT: 203 ms MV A Armando: 1.23 m/s MV E/A Ratio: 1.56 AV maxP.15 mmHg AV meanP.38 mmHg RAP: 5.00 mmHg RVSP: 47.69 mmHg FINDINGS -------- Sinus rhythm. This was a technically good study. The left ventricular size is normal. There is moderate concentric left ventricular hypertrophy. Overall left ventricular systolic function is normal with, an EF between 55 - 60 %. Mitral Doppler inflow pattern suggests diastolic filling abnormality 35.91. The right ventricle is mildly enlarged. LA is moderately dilated 34-39 ml/m2 The right atrium is normal in size. The aortic valve is trileaflet and appears structurally normal. There is mild aortic regurgitation. Peak/mean gradient across the Aortic Valve is 19.15mmHg / 10.38mmHg. The mitral valve leaflets are mildly thickened. Mild mitral annular calcification present. There is trace mitral regurgitation. Mild tricuspid regurgitation present. There is moderate pulmonary hypertension. The right ventricular systolic pressure, as measured by Doppler, is 47.69mmHg. Trace/mild (physiologic) pulmonic regurgitation. The aortic root size is normal. Normal inferior vena cava with normal inspiratory collapse consistent with estimated right atrial pressure of 5 mmHg. The inferior vena cava is dilated with poor inspiratory collapse which is consistent with estimated right atrial pressure of 20 mmHg. There is a small, generalized pericardial effusion present. CONCLUSIONS -------- 1. Sinus rhythm. 2. The aortic valve is trileaflet and appears structurally normal. 3. There is mild aortic regurgitation. 4. Peak/mean gradient across the Aortic Valve is 19.15mmHg / 10.38mmHg. 5. The mitral valve leaflets are mildly thickened. 6. Mild mitral annular calcification present. 7. There is trace mitral regurgitation. 8. Mild tricuspid regurgitation present. 9. There is moderate pulmonary hypertension. 10. The right ventricular systolic pressure, as measured by Doppler, is 47.69mmHg. 11. Trace/mild (physiologic) pulmonic regurgitation. 12. This was a technically good study. 13. The aortic root size is normal. 14. Normal inferior vena cava with normal inspiratory collapse consistent with estimated right atrial pressure of 5 mmHg. 15. The inferior vena cava is dilated with poor inspiratory collapse which is consistent with estimated right atrial pressure of 20 mmHg. 16. There is a small, generalized pericardial effusion present. 17. The left ventricular size is normal. 18. There is moderate concentric left ventricular hypertrophy. 19. Overall left ventricular systolic function is normal with, an EF between 55 - 60 %. 20. Mitral Doppler inflow pattern suggest diastolic filling abnormality 35.91. 21. The right ventricle is mildly enlarged. 22. LA is moderately dilated 34-39 ml/m2 23. The right atrium is normal in size. HEAD MACHINE FEEDER: Shama Contreras RDCS
--- NOTE | 2017-02-07 11:45 | CONS ---
CONSULTATION Mrs. Desouza is a 51-year-old female with known history of chronic kidney disease on hemodialysis, history of diabetes mellitus, hypertension, hyperlipidemia, who presented with symptoms of progressive dyspnea that started yesterday in the emergency room. She was noted to be in pulmonary edema and she had evidence of significant elevation of her blood pressure. The patient had the chronic kidney disease following a severe pancreatitis. She was on dialysis for a while, then off of it and went back on dialysis in November of last year. She has been evaluated for a transplant, has underwent a stress test and an echocardiogram performed earlier this year and were reported to show no evidence of inducible ischemia. She is feeling better at this time and she is scheduled to undergo dialysis today. Her last dialysis was on , so she has been on schedule and has not missed any dialysis. She denies any palpitation. No chest pain. No clear PND or orthopnea. No peripheral edema. She is usually active physically without significant problem. She has no history of PND nor orthopnea. MEDICATION: Her medications at home included tramadol, hydralazine 100 mg 3 times a day, clonidine 0.3 mg 3 times a day, amlodipine 10 mg daily, Renvela, Prilosec, metoprolol tartrate 25 mg daily, magnesium, insulin, furosemide 40 mg twice a day, Flexeril, PhosLo and Atorvastatin 40 mg daily. REVIEW OF SYSTEMS: RESPIRATORY SYSTEM: She had recent dyspnea on exertion. She had some cough a week ago. No history of obstructive lung disease. She is nonsmoker. GI SYSTEM: She has no recent GI bleeding. She has no recent abdominal pain. SYSTEM: She has end-stage renal disease, although she still has urinary output. She has no dysuria. NERVOUS SYSTEM: No stroke or seizure. PHYSICAL EXAMINATION: She is a 51-year-old female, alert and oriented, in no apparent distress. Blood pressure 160/70 with the heart rate in the 80s. HEAD: Normocephalic. EYES: Sclerae anicteric. NECK: No bruit. LUNGS: Clear to auscultation. HEART: Regular rate and rhythm. S1, S2. No S3. Positive S4. No rub. ABDOMEN: Soft, nontender. Positive bowel sounds. No organomegaly. EXTREMITIES: No edema. Intact pulses. LAB DATA: Lab data revealed a hemoglobin of 7.2. BUN and creatinine 57 and 6.54, potassium of 5.0. Her blood sugar on presentation was 457. Her troponin 0.02. NT proBNP of 6200. Her EKG revealed a sinus mechanism, rate of [address]-T wave changes. Her chest x-ray revealed evidence of acute congestive heart failure. She had an echocardiogram performed today that revealed a preserved ventricular size and systolic function with a small pericardial effusion with no evidence of tamponade. She has moderate pulmonary hypertension and mild tricuspid regurgitation. IMPRESSION: 1. Symptoms of acute dyspnea with acute fluid overload in a patient with preserved systolic function consistent with diastolic dysfunction related to hypertension. 2. End-stage renal disease, on hemodialysis. 3. History of hypertension. 4. Hyperlipidemia. 5. Diabetes mellitus. 6. Remote history of pancreatitis. RECOMMENDATION: From the cardiac standpoint, the congestive heart failure is related to the hypertension. In the setting of her chronic kidney disease, controlling the hypertension unfortunately becomes difficult at times. I will stop her Lopressor and switch her to Coreg 12.5 mg twice a day to see if that will help her blood pressure. Otherwise, continue rest of medical regimen. She is scheduled to undergo dialysis today and depending on her response, further recommendation will be made. If she persists to be hypertensive then one of the option is to her try minoxidil. Thank you for this consult. We will follow with you. MARIANNE / DARVINN: [id number] /
[2017-02-07] MEDS: CARVEDILOL 12.5 MG TAB PO SCH ×2 (12:04→17:36)
[2017-02-07 12:12] LABS: Glucose,Whole Blood 241 mg/dL (75-99)
[2017-02-07 13:51] LABS: Hemoglobin A1C 6.2 % (4.2-6.1)
--- NOTE | 2017-02-07 14:51 | CONS ---
CONSULTATION Sara Desouza is a 51-year-old female who knows me from the past who comes in with increasing shortness of breath of about 2 to 3 days duration. She underwent dialysis on . She subsequently was unable to lie down because of shortness of breath. She had an occasional cough with some clear phlegm, no wheezing. She did not have any change in her urinary output. She subsequently was seen in the ED and was quite short of breath. Initial chest x-ray showed evidence of pulmonary edema, which was new compared to previous x-ray from 12/16/2016. Past medical history is positive for acute pancreatitis with what seems like multi system organ failure at which time, she required dialysis. This was 7 years ago. She subsequently improved and did not require dialysis. However over the last year she has had progressive renal failure and had required dialysis. She has a left upper extremity arm shunt. PAST MEDICAL HISTORY: Past medical history is positive for diabetes mellitus, hyperlipidemia, hypertension, pneumonia, renal disease, necrotizing pancreatitis, chronic renal failure. No clear history of asthma or COPD; however, she had been prescribed an inhaler once in the past. FAMILY HISTORY: Family history is positive for diabetes mellitus, cancer and hypertension in her mother. There is family history of coronary artery disease as well. SOCIAL HISTORY: Patient is a never smoker. She has not been exposed to any noxious chemicals. MEDICATIONS: Medications prior to admission were tramadol, Requip, Apresoline, clonidine, Norvasc, vitamin E, TriphroCap, Renvela, Compazine, Prilosec, Lopressor, magnesium gluconate, lidocaine cream on her shunt, insulin, Lispro as well as Lantus, hydrocodone with acetaminophen, Lasix, Flexeril, PhosLo and atorvastatin. ALLERGIES: She is allergic to CIPROFLOXACIN and IODINATED CONTRAST. REVIEW OF SYSTEMS: Noncontributory. PHYSICAL EXAMINATION: On physical examination, blood pressure is 165/70, respiratory rate 26, pulse rate of 82. She is afebrile. O2 saturation on 2 L by nasal cannula is 97%. HEENT reveals pupils are equal. No jugular venous distention. Chest reveals scattered crackles in the base. Cardiovascular system reveals an S1, S2. No S3. Short systolic murmur is heard. Abdomen is soft. There is trace edema. There is a bruit in the left arm shunt. White count is 3.6, hemoglobin of 7.2, platelet count of 95,000. Sodium 136, potassium 5, chloride 97, bicarb 24, BUN 57, creatinine 6.54. Chest x-ray shows evidence of acute pulmonary edema. IMPRESSION AT THIS TIME: 1. Acute pulmonary edema secondary to fluid overload in a patient with chronic renal failure on dialysis. 2. Anemia that is multifactorial in part due to her chronic renal failure. 3. Uncontrolled hypertension. 4. Diabetes mellitus. 5. Possible diastolic dysfunction and congestive heart failure. At this point in time, would control her blood pressure. She is on IV nitro and we shall titrate this to keep her blood pressure adequately controlled. Continue clonidine, Coreg, Norvasc, Apresoline. Patient will need to be dialyzed for removal of fluid and optimizing her respiratory status. Agree with increasing her Lasix at this time. Her prognosis at this time is guarded. We will follow her closely during her hospital stay. Continue GI prophylaxis. Watch her hemoglobin and hold off on subcutaneous heparin until we ensure that her hemoglobin is stable. Depending on how she does, we should make further changes to her care. MMODL / IJN: [id number] /
[2017-02-07 15:24] LABS: Glucose,Whole Blood 168 mg/dL (75-99)
[2017-02-07] MEDS: HYDROcodone/APAP 7.5-325MG 1 EACH TAB PO PRN ×2 (16:04→22:04)
[2017-02-07 17:34] LABS: Glucose,Whole Blood 119 mg/dL (75-99)
[2017-02-07 21:02] LABS: Glucose,Whole Blood 152 mg/dL (75-99)
[2017-02-07] MEDS: CYCLOBENZAPRINE 5 MG TAB PO SCH (21:04)
[2017-02-07] MEDS: ATORVASTATIN 40 MG TAB PO SCH (21:04)
[2017-02-08] MEDS: SODIUM CHLORIDE 0.9% 1,000 ML IV SCH (02:32)
[2017-02-08] MEDS: HYDROcodone/APAP 7.5-325MG 1 EACH TAB PO PRN ×2 (04:37→16:56)
[2017-02-08 04:48] LABS: Anisocytosis Slight; Basophils % (A) 1 %; CH 33.5; CHCM 32.1; Eosinophils # (A) 0.1 k/uL (0-0.7); Eosinophils % (A) 2 %; HCT 23.4 % (34.0-46.0); HGB 7.6 gm/dL (11.4-16.0); Hypochromasia Slight; Luc # (Auto) 0.05; Luc % (Auto) 2; Lymphocytes # (A) 0.5 k/uL (1.0-4.8); Lymphocytes % (A) 13 %; MCH 34.1 pg (25.0-35.0); MCHC 32.4 g/dL (31.0-37.0); MCV 105.1 fL (80.0-100.0); Macrocytosis Moderate; Monocytes # (A) 0.2 k/uL (0-1.0); Monocytes % (A) 6 %; Neutrophils # (A) 2.7 k/uL (1.3-7.7); Neutrophils % (A) 78 %; Poikilocytosis Slight; RBC 2.23 m/uL (3.80-5.40); RDW 17.1 % (11.5-15.5); WBC 3.5 k/uL (3.8-10.6); WBC (Perox) 3.86
[2017-02-08 04:58] LABS: Calcium 8.9 mg/dL (8.4-10.2); Magnesium 1.8 mg/dL (1.6-2.3); Phosphorus 4.6 mg/dL (2.5-4.5); Potassium 5.1 mmol/L (3.5-5.1)
[2017-02-08 05:21] LABS: Glucose,Whole Blood 72 mg/dL (75-99)
[2017-02-08 05:52] LABS: Glucose,Whole Blood 76 mg/dL (75-99)
[2017-02-08 07:31] LABS: Glucose,Whole Blood 115 mg/dL (75-99)
[2017-02-08] MEDS: levOCARNitine (WITH SUGAR) 100 MG/ML BOTTLE PO SCH ×2 (08:00→21:02)
[2017-02-08] MEDS: INSULIN GLARGINE 100 UNIT/ML 10 ML VIAL SQ SCH (08:00)
[2017-02-08] MEDS: SEVELAMER 800 MG TAB PO SCH ×3 (08:02→17:58)
[2017-02-08] MEDS: MAGNESIUM OXIDE 400 MG TAB PO SCH ×2 (08:03→12:38)
[2017-02-08] MEDS: hydrALAZINE HCL 50 MG TAB PO SCH ×3 (08:03→21:03)
[2017-02-08] MEDS: CARVEDILOL 12.5 MG TAB PO SCH ×2 (08:03→16:57)
[2017-02-08] MEDS: PANTOPRAZOLE 40 MG TABLET PO SCH (08:03)
[2017-02-08] MEDS: FOLIC ACID-VIT B COMPLEX-VIT C 1 CAP PO SCH (08:04)
[2017-02-08] MEDS: FUROSEMIDE 40 MG TAB PO SCH ×2 (08:04→16:57)
[2017-02-08] MEDS: CALCIUM ACETATE 667 MG CAP PO SCH ×3 (08:04→21:03)
[2017-02-08] MEDS: cloNIDine HCL 0.1 MG TAB PO SCH ×3 (08:04→21:03)
[2017-02-08] MEDS: amLODIPine 10 MG TAB PO SCH (08:06)
[2017-02-08] MEDS: VITAMIN E (DL,TOCOPHERYL ACET) 400 UNIT CAP PO SCH (08:06)
[2017-02-08] MEDS: INSULIN LISPRO (humaLOG) 300 UNIT/3 ML VIAL SQ SCH ×4 (08:06→21:02)
[2017-02-08] MEDS: INSULIN NPL/INSULIN LISPRO 100 UNIT/ML 10 ML VIAL (Humalog 75/25) SQ SCH ×3 (08:13→17:58)
--- NOTE | 2017-02-08 09:24 | XR ---
EXAMINATION TYPE: XR chest 1V portable DATE OF EXAM: 02/08/2017 HISTORY: sob. REFERENCE: Previous study dated 02/07/2017. FINDINGS: There is multichamber cardiac enlargement. The lungs are now clear. Pleural spaces are flaco r. IMPRESSION: 1. CARDIOMEGALY. 2. RESOLUTION OF THE PATIENT'S PULMONARY EDEMA.
--- NOTE | 2017-02-08 10:59 | P.PN ---
Subjective This is a 51-year-old diabetic, ESRD on dialysis Thursday came in because of shortness of breath that started about a week ago. She was last dialyzed as scheduled 2 days prior to admission. She came into the emergency room day before yesterday late night with worsening shortness of breath. No fever chills. No chest pain. She was dialyzed yesterday and 3.6 L were taken off. She does have cramps on dialysis and off of dialysis. I have started her on Carnitor for this reason. She is currently on oxygen 2 L but we'll try to take it off and see if she can tolerate it and does not desaturate. She is known diabetic for the last 16 years and has been on dialysis for about 1 year. She says she is on dialysis for about 3-1/2-4 hours. She is not aware of how much fluid was taken off usually. No nausea vomiting diarrhea appetite is good. Denies any history of laser treatment. Memory seems to be somewhat less than optimal. Hypertriglyceridemia and pancreatitis, previous acute kidney injury requiring dialysis for 2 months in 2009. 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 Additionally she is known with chronic anemia and bone marrow biopsies in the past he is supposed to have a possible myelodysplastic syndrome. She is requiring larger doses of DEVENDRA. Objective - Vital Signs Vital signs: Vital Signs Temp 98.7 F 02/08/17 08:00 Pulse 79 02/08/17 10:00 Resp 24 02/08/17 10:00 BP 155/62 02/08/17 10:00 Pulse Ox 95 02/08/17 10:00 Intake & Output 02/07/17 02/08/17 02/08/17 18:59 06:59 18:59 Intake Total 1703.2 410 300 Output Total 2971 675 140 Balance -1267.8 -265 160 Weight 78.1 kg 75.8 kg Intake: IV 95 Nitroglycerin-D5w Pmx 50 95 mg In Dextrose/Water 1 250ml.bag @ 20 MCG/MIN 6 mls/hr IV .Q24H [facility] Rx#: [id number] Intake, IV Titration 408.2 260 60 Amount Nitroglycerin-D5w Pmx 50 188.2 mg In Dextrose/Water 1 250ml.bag @ 20 MCG/MIN 6 mls/hr IV .Q24H [facility] Rx#: [id number] Sodium Chloride 0.9% 1, 220 260 60 000 ml @ 20 mls/hr IV . [facility] Rx#:[id number] Oral 1200 150 240 Output: Urine 1260 675 140 Stool 1 Other 1710 Other: Voiding Method Indwelling Catheter Indwelling Catheter Indwelling Catheter # Bowel Movements 1 On examination she is awake alert oriented comfortable She feels much better. HEENT exam no JVP neck is supple no facial asymmetry. Lungs are clear to auscultation percussion good air entry bilaterally Heart sounds are unremarkable no murmur rub gallop normal sinus rhythm. Abdomen soft nontender no organomegaly status masses Extremity exam reveals no edema Neurologically awake alert oriented - Labs CBC & Chem 7: 02/08/17 04:29 02/08/17 04:25 Labs: Abnormal Lab Results - Last 24 Hours (Table) 02/06/17 02/07/17 02/07/17 Range/Units 23:30 12:10 15:21 WBC (3.8-10.6) k/uL RBC (3.80-5.40) m/uL Hgb (11.4-16.0) gm/dL Hct (34.0-46.0) % MCV (80.0-100.0) fL RDW (11.5-15.5) % Plt Count (150-450) k/uL Lymphocytes # (1.0-4.8) k/uL BUN (7-17) mg/dL Creatinine (0.52-1.04) mg/dL Glucose (74-99) mg/dL POC Glucose (mg/dL) 241 H 168 H (75-99) mg/dL Hemoglobin A1c 6.2 H (4.2-6.1) % Phosphorus (2.5-4.5) mg/dL 02/07/17 02/07/17 02/08/17 Range/Units 17:32 21:00 04:25 WBC (3.8-10.6) k/uL RBC (3.80-5.40) m/uL Hgb (11.4-16.0) gm/dL Hct (34.0-46.0) % MCV (80.0-100.0) fL RDW (11.5-15.5) % Plt Count (150-450) k/uL Lymphocytes # (1.0-4.8) k/uL BUN 31 H (7-17) mg/dL Creatinine 4.60 H (0.52-1.04) mg/dL Glucose 63 L (74-99) mg/dL POC Glucose (mg/dL) 119 H 152 H (75-99) mg/dL Hemoglobin A1c (4.2-6.1) % Phosphorus 4.6 H (2.5-4.5) mg/dL 02/08/17 02/08/17 02/08/17 Range/Units 04:29 05:18 07:29 WBC 3.5 L (3.8-10.6) k/uL RBC 2.23 L (3.80-5.40) m/uL Hgb 7.6 L (11.4-16.0) gm/dL Hct 23.4 L (34.0-46.0) % MCV 105.1 H (80.0-100.0) fL RDW 17.1 H (11.5-15.5) % Plt Count 93 L (150-450) k/uL Lymphocytes # 0.5 L (1.0-4.8) k/uL BUN (7-17) mg/dL Creatinine (0.52-1.04) mg/dL Glucose (74-99) mg/dL POC Glucose (mg/dL) 72 L 115 H (75-99) mg/dL Hemoglobin A1c (4.2-6.1) % Phosphorus (2.5-4.5) mg/dL Assessment and Plan Plan: Impression 1. ESRD on dialysis Thursday, dialyzed through a Edilma fistula on the left upper arm 2. Admitted with congestive heart failure and shortness of breath. No evidence of acute KS. Dialyzed yesterday Thursday 3.6 L taken off with some cramps but tolerated fairly well. 3. Blood pressure uncontrolled. Blood pressure currently in the 150s 4. Chronic anemia with bone marrow biopsies twice 1 recently in 2017 suggestive of some myelodysplastic picture. Hemoglobin 8.5> 7.2 >7.6 today 5. Diabetes type 2 for the last 16 years approximately diagnosed 2001. 6. MBD controlled calcium is 8.9 phosphorus 4.6 7. Rule out iron deficiency 8. History of cramps both during and off of dialysis Recommendation. 1. She can be discharged if she does not desaturate on walking. 2. Next dialysis for tomorrow if she remains here in the hospital will be dialyzed tomorrow if necessary will take off 4 L over 4 hours. 3. Continue Carnitor as it has been known to help cramps. 4. She may benefit from being on home hemodialysis, which her inability to be trained for this may be suspect because of her memory being somewhat less than adequate. 5. No need to start IV antihypertensives as this blood pressure can be easily controlled with dialysis hopefully.
[2017-02-08 12:19] LABS: Glucose,Whole Blood 323 mg/dL (75-99)
--- NOTE | 2017-02-08 14:22 | PN ---
PROGRESS NOTE Mrs. Desouza is 51-year-old female who presented with symptoms of congestive heart failure and uncontrolled hypertension. She underwent dialysis yesterday and she is scheduled to undergo further dialysis today. She is feeling better. Her breathing is better. She denies any chest pain. Her blood pressure has been under good control without further problems. She continues to be on amlodipine 10 mg daily, Lipitor 40 mg daily, carvedilol 12.5 mg twice a day, clonidine 0.3 mg 3 times a day, furosemide 80 mg twice a day orally, insulin. PHYSICAL EXAMINATION: Blood pressure 145/60 with a heart rate in the 70s. LUNGS: Clear. Heart regular rate and rhythm, S1, S2. No S3. No rub. ABDOMEN: Soft, nontender. EXTREMITIES: No edema. LAB DATA: Lab data revealed BUN and creatinine 31 and 4.6, hemoglobin of 7.6. IMPRESSION: 1. End-stage renal disease, on hemodialysis. 2. Hypertension, under better control after dialysis. 3. Diabetes mellitus. 4. Anemia. RECOMMENDATIONS: From the cardiac standpoint, she is stable. We will continue present therapy. If her rate is stable, the dose of Coreg can be further increased. I would expect she will be transferred to telemetry floor and depending on her progress further recommendations will be made. MMODL / IJN: [id number] /
--- NOTE | 2017-02-08 16:52 | PN ---
PROGRESS NOTE She is not short of breath today and is feeling quite well. She is off her nitroglycerin drip. On physical examination, she was sitting in bed. Her respiratory rate is 21, pulse rate of 72, blood pressure 145/66, O2 saturation on 2 L by nasal cannula is 98%. HEENT is unremarkable. Chest is relatively clear. Cardiovascular system revealed an S1, S2. Abdomen is soft. There is no edema. The labs were reviewed. Chest x-ray, shows resolution of the patient's pulmonary edema. IMPRESSION: At this time is: 1. Acute respiratory failure due to fluid overload and acute pulmonary edema. 2. Chronic renal failure with acute exacerbation. 3. Hypertensive crisis and uncontrolled hypertension. At this point in time, would transfer out of the ICU. She has improved post dialysis. She is on oral medications and is doing relatively well. Depending on how she does, we should make further changes to her care. Medications were reviewed and will continue the same at this time. MMODL / IJN: [id number] /
[2017-02-08 17:27] LABS: Glucose,Whole Blood 67 mg/dL (75-99)
[2017-02-08 17:27] LABS: Glucose,Whole Blood 88 mg/dL (75-99)
[2017-02-08 20:58] LABS: Glucose,Whole Blood 174 mg/dL (75-99)
[2017-02-08] MEDS: CYCLOBENZAPRINE 5 MG TAB PO SCH (21:01)
[2017-02-08] MEDS: ATORVASTATIN 40 MG TAB PO SCH (21:01)
[2017-02-09] MEDS: HYDROcodone/APAP 7.5-325MG 1 EACH TAB PO PRN ×2 (00:03→18:38)
[2017-02-09] MEDS: SODIUM CHLORIDE 0.9% 1,000 ML IV SCH (02:23)
[2017-02-09] MEDS: PROCHLORPERAZINE 5 MG TAB PO PRN (06:04)
[2017-02-09 06:14] LABS: Anisocytosis Slight; Basophils % (A) 1 %; CH 33.6; CHCM 32.9; Eosinophils # (A) 0.1 k/uL (0-0.7); Eosinophils % (A) 3 %; HCT 23.6 % (34.0-46.0); HDW 3.75; HGB 7.7 gm/dL (11.4-16.0); Hypochromasia Slight; Luc # (Auto) 0.06; Luc % (Auto) 2; Lymphocytes # (A) 0.6 k/uL (1.0-4.8); Lymphocytes % (A) 18 %; MCH 33.4 pg (25.0-35.0); MCHC 32.6 g/dL (31.0-37.0); MCV 102.6 fL (80.0-100.0); Macrocytosis Moderate; Mean Platelet Volume 7.8; Monocytes # (A) 0.2 k/uL (0-1.0); Monocytes % (A) 5 %; Neutrophils # (A) 2.5 k/uL (1.3-7.7); Neutrophils % (A) 72 %; Poikilocytosis Slight; RDW 16.9 % (11.5-15.5); WBC 3.4 k/uL (3.8-10.6); WBC (Perox) 3.63
[2017-02-09] MEDS: INSULIN LISPRO (humaLOG) 300 UNIT/3 ML VIAL SQ SCH ×4 (06:15→21:57)
[2017-02-09 06:16] LABS: Glucose,Whole Blood 124 mg/dL (75-99)
[2017-02-09 06:25] LABS: Calcium 9.1 mg/dL (8.4-10.2); Phosphorus 4.6 mg/dL (2.5-4.5); Potassium 4.8 mmol/L (3.5-5.1)
[2017-02-09] MEDS: SEVELAMER 800 MG TAB PO SCH ×3 (07:05→16:59)
[2017-02-09] MEDS: INSULIN NPL/INSULIN LISPRO 100 UNIT/ML 10 ML VIAL (Humalog 75/25) SQ SCH ×3 (07:05→19:42)
[2017-02-09] MEDS ORDERED: GELATIN SPONGE,ABSORB (SMALL) 1 EACH SPONGE ONE ×2 (08:25→15:50)
[2017-02-09] MEDS: FUROSEMIDE 40 MG TAB PO SCH ×2 (08:36→15:15)
[2017-02-09] MEDS: CARVEDILOL 12.5 MG TAB PO SCH ×3 (08:38→21:56)
[2017-02-09] MEDS: cloNIDine HCL 0.1 MG TAB PO SCH ×3 (08:38→21:58)
[2017-02-09] MEDS: CALCIUM ACETATE 667 MG CAP PO SCH ×3 (08:39→21:58)
[2017-02-09] MEDS: MAGNESIUM OXIDE 400 MG TAB PO SCH ×2 (08:39→11:53)
[2017-02-09] MEDS: FOLIC ACID-VIT B COMPLEX-VIT C 1 CAP PO SCH (08:39)
[2017-02-09] MEDS: hydrALAZINE HCL 50 MG TAB PO SCH ×3 (08:40→21:58)
[2017-02-09] MEDS: levOCARNitine (WITH SUGAR) 100 MG/ML BOTTLE PO SCH ×2 (08:41→21:57)
[2017-02-09] MEDS: INSULIN GLARGINE 100 UNIT/ML 10 ML VIAL SQ SCH (08:43)
[2017-02-09] MEDS: VITAMIN E (DL,TOCOPHERYL ACET) 400 UNIT CAP PO SCH (08:45)
[2017-02-09] MEDS: PANTOPRAZOLE 40 MG TABLET PO SCH (08:46)
--- NOTE | 2017-02-09 08:53 | HP ---
HISTORY AND PHYSICAL CHIEF COMPLAINT: A 51-year-old, white female with congestive heart failure. HISTORY OF PRESENT ILLNESS: This 51-year-old, white female, with end-stage renal disease developed congestive heart failure, shortness of breath and extremity swelling, admitted to the hospital. She continued to urinate despite renal failure. She is going to get dialysis today in the ICU. Date of service is 02/09/2017. ICU time 30 minutes. MEDICATIONS: Home medicines are discussed include: 1. Lipitor. 2. Flexeril. 3. Magnesium . 4. Lasix. 5. Lantus. 6. PhosLo. 7. Compazine. 8. Insulin Lispro. 9. Triphrocaps. 10.Magonate. 11.Lopressor. 12.Renvela. 13.Vitamin 3. 14.Clonidine. ALLERGIES: Allergies are to CIPRO and CONTRAST. REVIEW OF SYSTEMS: A 14-point review of system is negative. PAST MEDICAL HISTORY: Diabetes mellitus, dialysis, dyslipidemia, hypertension, pneumonia, renal disease, acute pancreatitis, hepatitis and pancreatitis, chronic anemia, insulin-dependent diabetes mellitus type 2, Hoffman's palsy, uterine ablation, pancreatic resection, dialysis, bone marrow biopsies, left arm shunt placement for dialysis. SOCIAL HISTORY: No smoking. No alcohol. No illicit drugs. FAMILY HISTORY: Brothers negative. Mother with cancer, diabetes mellitus, hypertension. Father with coronary artery disease, hypertension, dyslipidemia. Father is 70 years old. PHYSICAL EXAM: Temp 98.2, pulse is 97 to 109, respiratory rate 18 to 20, blood pressure is mid to 200s over 100s. O2 saturation 92% to 94% on room air. HEAD: Normocephalic, atraumatic. Pupils equal, round, reactive to light and accommodation. NECK: Supple. No mass . VASCULAR: Normal dorsalis pedis, posterior tibial and radial pulses. OPHTHALMOLOGIC: Pupils equal, round, react to light and accommodation. NEUROLOGIC: Alert and oriented x3. PSYCH: Fair mood effect. ASSESSMENT: 1. End-stage renal disease. 2. Congestive heart failure. 3. Acute pulmonary . 4. Hypertensive emergency. 5. Pancytopenia, which is chronic for her. 6. End-stage renal disease. 7. ICU time is 45 minutes on admission. 8. Hypertension uncontrolled. 9. Pulmonary edema. 10.End-stage renal disease on dialysis. 11.Hyperglycemia. 12.Anemia. The patient will continue with current treatments including dialysis to get the fluid off her, possibly Lasix being given. Cardiology and Renal consult. Sugars will be controlled. Blood pressure will be controlled. Please see further orders. DATE OF SERVICE: 02/08/2017 in the ICU 45 minutes. MMODL / IJN: [id number] /
--- NOTE | 2017-02-09 09:44 | PN ---
PROGRESS NOTE DATE OF SERVICE: 02/09/2017 Patient is treated for congestive heart failure and end-stage renal disease with dialysis. She is feeling better with dialysis. Her blood pressure is under better control. She is on amlodipine 10 mg, carvedilol 12.5 b.i.d., clonidine 0.3 t.i.d., furosemide 80 b.i.d. as well as insulin and Lipitor for hypertension acceleration end- stage renal disease. CARDIOVASCULAR: S1, S2. LUNGS: Transmitted upper airway sounds. HEMATOLOGIC: Negative Homans. PSYCH: Fair mood and affect. She will possibly going to telemetry and monitor dialysis. She should not have to stay here too much longer in the hospital. Her hemoglobin is 7.7. Consider blood transfusion versus Epogen shot. She has pancytopenia, which will need to be followed. She has had this before. Her BUN is 38 and creatinine is 5.4, dialysis possibly done today, possibly iron infusions as an outpatient is another option for low anemia if erythropoietin does not work. MMODL / IJN: [id number] /
[2017-02-09] MEDS ORDERED: LIDOCAINE 4% CREAM 5 GM TUBE TOPICAL ONE (10:00)
--- NOTE | 2017-02-09 10:24 | P.PN ---
Subjective This is a 51-year-old female patient being seen examined and evaluated today. She came into the hospital for some progressive worsening shortness of breath over the weekend. She was admitted to the hospital with a hypertensive urgency , congestive heart failure and some pulmonary edema. Patient was seen by Dr. XAVIER Romero over the weekend who was covering for Dr. Bobby, please see his notes for days covered. This patient is a end-stage renal disease patient is on hemodialysis. Initially the patient was requiring supplemental oxygen, Upon examination today the patient's resting up in bed on room air she states her shortness of breath has improved slightly in the last day. Denies any cough or congestion at this time. All labs and reports have been reviewed. Objective - Vital Signs Vital signs: Vital Signs Temp 97.3 F L 02/09/17 04:00 Pulse 77 02/09/17 04:00 Resp 16 02/09/17 04:00 BP 149/70 02/09/17 04:00 Pulse Ox 96 02/09/17 04:00 Intake & Output 02/08/17 02/09/17 02/09/17 18:59 06:59 18:59 Intake Total 700 760 180 Output Total 2795 Balance -2094 760 180 Weight 76 kg Intake: Intake, IV Titration 220 220 Amount Sodium Chloride 0.9% 1, 220 220 000 ml @ 20 mls/hr IV . Q24H [facility] Rx#:[id number] Oral 480 540 180 Output: Urine 595 Other 2200 Other: Voiding Method Indwelling Catheter Toilet # Voids 2 - Exam GENERAL EXAM: Alert, active, comfortable in no apparent distress. HEAD: Normocephalic. EYES: Normal reaction of pupils, equal size. NOSE: Clear with pink turbinates. THROAT: No erythema or exudates. NECK: No masses, no JVD. CHEST: No chest wall deformity. LUNGS: Equal air entry with no crackles, wheeze, rhonchi or dullness. CVS: S1 and S2 normal with no audible mumurs, regular rhythm. ABDOMEN: No hepatosplenomegaly, normal bowel sounds, no guarding or rigidity. EXTREMITIES: No edema noted, pedal pulses palpable. SKIN: No rashes CENTRAL NERVOUS SYSTEM: No focal deficits, tone is normal in all 4 extremities. - Labs CBC & Chem 7: 02/09/17 05:29 02/09/17 05:29 Labs: Abnormal Lab Results - Last 24 Hours (Table) 02/08/17 02/08/17 02/08/17 Range/Units 12:12 17:09 20:56 WBC (3.8-10.6) k/uL RBC (3.80-5.40) m/uL Hgb (11.4-16.0) gm/dL Hct (34.0-46.0) % MCV (80.0-100.0) fL RDW (11.5-15.5) % Plt Count (150-450) k/uL Lymphocytes # (1.0-4.8) k/uL Sodium (137-145) mmol/L Chloride (98-107) mmol/L BUN (7-17) mg/dL Creatinine (0.52-1.04) mg/dL Glucose (74-99) mg/dL POC Glucose (mg/dL) 323 H 67 L 174 H (75-99) mg/dL Phosphorus (2.5-4.5) mg/dL 02/09/17 02/09/17 02/09/17 Range/Units 05:29 05:29 06:14 WBC 3.4 L (3.8-10.6) k/uL RBC 2.30 L (3.80-5.40) m/uL Hgb 7.7 L (11.4-16.0) gm/dL Hct 23.6 L (34.0-46.0) % MCV 102.6 H (80.0-100.0) fL RDW 16.9 H (11.5-15.5) % Plt Count 113 L (150-450) k/uL Lymphocytes # 0.6 L (1.0-4.8) k/uL Sodium 134 L (137-145) mmol/L Chloride 96 L (98-107) mmol/L BUN 38 H (7-17) mg/dL Creatinine 5.40 H* (0.52-1.04) mg/dL Glucose 115 H (74-99) mg/dL POC Glucose (mg/dL) 124 H (75-99) mg/dL Phosphorus 4.6 H (2.5-4.5) mg/dL Assessment and Plan Plan: Assessment Acute respiratory failure due to fluid overload and acute pulmonary edema requiring supplemental oxygen End-stage renal disease on dialysis Thursday and Saturdays Congestive heart failure with dyspnea on admission Hypertension with hypertensive crisis, improved Chronic anemia Diabetes mellitus type 2 Plan Medications have been reviewed and will be continued as ordered. I'll labs and reports have been reviewed. Continue with pulmonary hygiene, coughing and deep breathing exercises, and supportive care. Supplemental oxygen to maintain oxygen saturations of 92% or better. Nephrology and cardiology on consult and appreciate recommendations. GI and DVT prophylaxis. We will continue to monitor labs/results and adjust treatment as necessary. Further recommendations pending. I performed an examination of the patient and discussed their management with the nurse practitioner. I have reviewed the nurse practitioner's note and agree with the documented findings and plan of care.
[2017-02-09 10:41] VITALS: RESP 18
[2017-02-09 12:01] LABS: Glucose,Whole Blood 147 mg/dL (75-99)
[2017-02-09 14:28] LABS: Glucose,Whole Blood 79 mg/dL (75-99)
--- NOTE | 2017-02-09 15:12 | PN ---
PROGRESS NOTE DATE OF SERVICE: 02/09/17 Patient is seen for followup for end-stage renal disease. Patient was admitted to the hospital with fluid overload. She has been feeling better. PHYSICAL EXAMINATION: On examination today, blood pressure is 175/78, heart rate 85 per minute patient is afebrile. Examination of the heart S1, S2. Examination lungs: Bilateral breath sounds are heard. Abdomen is soft, nontender. Examination of lower extremities shows no significant edema. [employer] exam is grossly intact. Patient moving all four extremities. LABS SHOW: Potassium 4.8, sodium 134. Hemoglobin was low at 7.7 g/dL. ASSESSMENT: 1. End-stage renal disease, on hemodialysis on a Thursday, , Thursday schedule via left upper arm AV fistula. The patient had about 3.6 L of ultrafiltration on Thursday. She is scheduled for hemodialysis today and then again a.m. which will be her regular outpatient treatment. 2. Anemia with no active bleeding noted. Hemoglobin at about 7.7 g/dL, status post bone marrow biopsies. 3. Mineral bone disorder. 4. History of cramps during dialysis in maintained on Carnitor. PLAN: Hemodialysis today and then again in a.m. if patient is still hospitalized. Otherwise, she can follow up as outpatient for her regular dialysis treatment. MMODL / IJN: [id number] /
[2017-02-09] MEDS: amLODIPine 10 MG TAB PO SCH (15:18)
--- NOTE | 2017-02-09 17:09 | P.PN ---
Subjective Principal diagnosis: Diastolic Heart Failure, uncontrolled hypertension This is a pleasant 51-year-old female patient with history of end- stage renal disease, hypertension. Presented to the hospital symptoms of congestive heart failure and uncontrolled hypertension. She underwent dialysis on Thursday and Thursday and is feeling quite a bit better. Her breathing is better. She denies any complaints of chest discomfort. She's been up out of bed walking without difficulties. Her blood pressure continues to be poorly controlled. She is currently on amlodipine 10 mg by mouth daily, carvedilol 12.5 mg by mouth twice a day, clonidine 0.3 mg 3 times a day and furosemide 80 mg twice a day. Objective - Vital Signs Vital signs: Vital Signs Temp 97.9 F 02/09/17 12:00 Pulse 85 02/09/17 12:00 Resp 18 02/09/17 12:00 BP 175/78 02/09/17 12:00 Pulse Ox 95 02/09/17 12:00 Intake & Output 02/08/17 02/09/17 02/09/17 18:59 06:59 18:59 Intake Total 700 760 360 Output Total 2795 2 Balance -2094 760 358 Weight 76 kg Intake: Intake, IV Titration 220 220 Amount Sodium Chloride 0.9% 1, 220 220 000 ml @ 20 mls/hr IV . Q24H [facility] Rx#:[id number] Oral 480 540 360 Output: Urine 595 0 Stool 2 Other 2200 Other: Voiding Method Indwelling Catheter Toilet Toilet # Voids 2 - Exam PHYSICAL EXAMINATION: HEENT: Head is atraumatic, normocephalic. Pupils equal, round. Neck is supple. There is no elevated jugular venous pressure. HEART EXAMINATION: Heart sounds regular, S1 and S2 normal. No murmur or gallop heard. CHEST EXAMINATION: Lungs revealed improved air entry. No chest wall tenderness is noted on palpation or with deep breathing. ABDOMEN: Soft, nontender. Bowel sounds are heard. No organomegaly noted. EXTREMITIES: No evidence of peripheral edema and no calf tenderness noted. NEUROLOGIC patient is awake, alert and oriented x3. . - Labs CBC & Chem 7: 02/09/17 05:29 02/09/17 05:29 Labs: Abnormal Lab Results - Last 24 Hours (Table) 02/08/17 02/08/17 02/09/17 Range/Units 17:09 20:56 05:29 WBC 3.4 L (3.8-10.6) k/uL RBC 2.30 L (3.80-5.40) m/uL Hgb 7.7 L (11.4-16.0) gm/dL Hct 23.6 L (34.0-46.0) % MCV 102.6 H (80.0-100.0) fL RDW 16.9 H (11.5-15.5) % Plt Count 113 L (150-450) k/uL Lymphocytes # 0.6 L (1.0-4.8) k/uL Sodium (137-145) mmol/L Chloride (98-107) mmol/L BUN (7-17) mg/dL Creatinine (0.52-1.04) mg/dL Glucose (74-99) mg/dL POC Glucose (mg/dL) 67 L 174 H (75-99) mg/dL Phosphorus (2.5-4.5) mg/dL 02/09/17 02/09/17 02/09/17 Range/Units 05:29 06:14 11:53 WBC (3.8-10.6) k/uL RBC (3.80-5.40) m/uL Hgb (11.4-16.0) gm/dL Hct (34.0-46.0) % MCV (80.0-100.0) fL RDW (11.5-15.5) % Plt Count (150-450) k/uL Lymphocytes # (1.0-4.8) k/uL Sodium 134 L (137-145) mmol/L Chloride 96 L (98-107) mmol/L BUN 38 H (7-17) mg/dL Creatinine 5.40 H* (0.52-1.04) mg/dL Glucose 115 H (74-99) mg/dL POC Glucose (mg/dL) 124 H 147 H (75-99) mg/dL Phosphorus 4.6 H (2.5-4.5) mg/dL Assessment and Plan Plan: Assessment and plan #1 end-stage renal disease, on hemodialysis #2 hypertension, poorly controlled #3 diabetes mellitus #4 anemia #5 acute diastolic congestive heart failure From cardiology's perspective, we will increase carvedilol to 25 mg by mouth twice a day in hopes of obtaining better blood pressure control. We will continue to follow the patient provide further recommendations accordingly. CREDIT ASSOCIATE note has been reviewed, I agree with a documented findings and plan of care. Patient was seen and examined.
[2017-02-09 17:18] LABS: Glucose,Whole Blood 160 mg/dL (75-99)
[2017-02-09 21:24] LABS: Glucose,Whole Blood 99 mg/dL (75-99)
[2017-02-09] MEDS: ATORVASTATIN 40 MG TAB PO SCH (21:56)
[2017-02-09] MEDS: CYCLOBENZAPRINE 5 MG TAB PO SCH (21:57)
[2017-02-10] MEDS: HYDROcodone/APAP 7.5-325MG 1 EACH TAB PO PRN ×4 (00:13→22:29)
[2017-02-10] MEDS: SODIUM CHLORIDE 0.9% 1,000 ML IV SCH (05:36)
[2017-02-10] MEDS: PROCHLORPERAZINE 5 MG TAB PO PRN (05:37)
[2017-02-10 06:17] LABS: Anisocytosis Slight; Basophils % (A) 1 %; CH 33.4; Eosinophils # (A) 0.1 k/uL (0-0.7); Eosinophils % (A) 3 %; HCT 26.4 % (34.0-46.0); HDW 3.87; HGB 8.7 gm/dL (11.4-16.0); Hypochromasia Slight; Luc # (Auto) 0.06; Luc % (Auto) 2; Lymphocytes # (A) 0.6 k/uL (1.0-4.8); Lymphocytes % (A) 20 %; MCH 33.6 pg (25.0-35.0); MCHC 32.9 g/dL (31.0-37.0); Macrocytosis Slight; Mean Platelet Volume 7.6; Monocytes # (A) 0.2 k/uL (0-1.0); Monocytes % (A) 7 %; Neutrophils % (A) 67 %; Poikilocytosis Slight; RBC 2.59 m/uL (3.80-5.40); RDW 16.7 % (11.5-15.5); WBC 2.9 k/uL (3.8-10.6); WBC (Perox) 2.98
[2017-02-10 06:24] LABS: ALT 30 U/L (9-52); AST 19 U/L (14-36); Alkaline Phosphatase 118 U/L (38-126); Anion Gap 13 mmol/L; Blood Urea Nitrogen 28 mg/dL (7-17); Calcium 9.1 mg/dL (8.4-10.2); Carbon Dioxide 31 mmol/L (22-30); Chloride 93 mmol/L (98-107); Glucose 216 mg/dL (74-99); Phosphorus 4.3 mg/dL (2.5-4.5); Potassium 5.4 mmol/L (3.5-5.1); Sodium 137 mmol/L (137-145); Total Bilirubin 0.7 mg/dL (0.2-1.3); Total Protein 6.8 g/dL (6.3-8.2)
[2017-02-10 06:26] LABS: Glucose,Whole Blood 205 mg/dL (75-99)
[2017-02-10 06:38] LABS: Non-African American GFR(MDRD) 10 (>60 ml/min/1.73 sqM)
[2017-02-10 06:53] LABS: Hepatitis B Surface Ag Index 0.07
[2017-02-10] MEDS: INSULIN LISPRO (humaLOG) 300 UNIT/3 ML VIAL SQ SCH ×4 (07:02→20:54)
[2017-02-10] MEDS: SEVELAMER 800 MG TAB PO SCH ×3 (07:02→17:30)
[2017-02-10] MEDS: CARVEDILOL 12.5 MG TAB PO SCH ×2 (07:02→16:40)
[2017-02-10] MEDS: INSULIN NPL/INSULIN LISPRO 100 UNIT/ML 10 ML VIAL (Humalog 75/25) SQ SCH ×3 (07:06→17:30)
[2017-02-10] MEDS: cloNIDine HCL 0.1 MG TAB PO SCH ×3 (09:16→20:55)
[2017-02-10] MEDS: FUROSEMIDE 40 MG TAB PO SCH ×2 (09:17→16:41)
[2017-02-10] MEDS: hydrALAZINE HCL 50 MG TAB PO SCH ×3 (09:17→20:55)
[2017-02-10] MEDS: levOCARNitine (WITH SUGAR) 100 MG/ML BOTTLE PO SCH ×2 (09:18→20:55)
[2017-02-10] MEDS: MAGNESIUM OXIDE 400 MG TAB PO SCH ×2 (09:20→12:24)
[2017-02-10] MEDS: amLODIPine 10 MG TAB PO SCH (09:22)
[2017-02-10] MEDS: PANTOPRAZOLE 40 MG TABLET PO SCH (09:23)
[2017-02-10] MEDS: CALCIUM ACETATE 667 MG CAP PO SCH ×3 (09:23→20:55)
[2017-02-10] MEDS: LIDOCAINE 4% CREAM 5 GM TUBE TOPICAL SCH (09:25)
[2017-02-10] MEDS: VITAMIN E (DL,TOCOPHERYL ACET) 400 UNIT CAP PO SCH (09:26)
[2017-02-10] MEDS: INSULIN GLARGINE 100 UNIT/ML 10 ML VIAL SQ SCH (09:33)
[2017-02-10] MEDS: FOLIC ACID-VIT B COMPLEX-VIT C 1 CAP PO SCH (09:35)
--- NOTE | 2017-02-10 10:50 | P.PN ---
Subjective 02/10/17-patient is being seen examined and evaluated today on the selective care unit. Upon examination the patient's resting up in bed on room air. Patient denies any shortness of breath cough or congestion. She states she is feeling significantly better and is anxious for discharge. Cardiology is on consult and is adjusting medications for her uncontrolled hypertension. She is afebrile, no further complaints. All lab reports have been reviewed. 02/09/17-This is a 51-year-old female patient being seen examined and evaluated today. She came into the hospital for some progressive worsening shortness of breath over the weekend. She was admitted to the hospital with a hypertensive urgency, congestive heart failure and some pulmonary edema. Patient was seen by Dr. XAVIER Romero over the weekend who was covering for Dr. Bobby, please see his notes for days covered. This patient is a end-stage renal disease patient is on hemodialysis. Initially the patient was requiring supplemental oxygen, Upon examination today the patient's resting up in bed on room air she states her shortness of breath has improved slightly in the last day. Denies any cough or congestion at this time. All labs and reports have been reviewed. Objective - Vital Signs Vital signs: Vital Signs Temp 97.5 F L 02/10/17 04:00 Pulse 77 02/10/17 04:00 Resp 18 02/10/17 04:00 BP 155/71 02/10/17 04:00 Pulse Ox 97 02/10/17 04:00 Intake & Output 02/09/17 02/10/17 02/10/17 18:59 06:59 18:59 Intake Total 580 240 Output Total 3 Balance 577 240 Weight 74.1 kg Intake: Oral 580 240 Output: Urine 0 Stool 3 Other: Voiding Method Toilet Toilet # Voids 1 - Exam GENERAL EXAM: Alert, active, comfortable in no apparent distress. HEAD: Normocephalic. EYES: Normal reaction of pupils, equal size. NOSE: Clear with pink turbinates. THROAT: No erythema or exudates. NECK: No masses, no JVD. CHEST: No chest wall deformity. LUNGS: Equal air entry with no crackles, wheeze, rhonchi or dullness. CVS: S1 and S2 normal with no audible mumurs, regular rhythm. ABDOMEN: No hepatosplenomegaly, normal bowel sounds, no guarding or rigidity. EXTREMITIES: No edema noted, pedal pulses palpable. SKIN: No rashes CENTRAL NERVOUS SYSTEM: No focal deficits, tone is normal in all 4 extremities. - Labs CBC & Chem 7: 02/10/17 05:26 02/10/17 05:26 Labs: Abnormal Lab Results - Last 24 Hours (Table) 02/09/17 02/09/17 02/10/17 Range/Units 11:53 16:54 05:26 WBC (3.8-10.6) k/uL RBC (3.80-5.40) m/uL Hgb (11.4-16.0) gm/dL Hct (34.0-46.0) % MCV (80.0-100.0) fL RDW (11.5-15.5) % Plt Count (150-450) k/uL Lymphocytes # (1.0-4.8) k/uL Potassium 5.4 H (3.5-5.1) mmol/L Chloride 93 L (98-107) mmol/L Carbon Dioxide 31 H (22-30) mmol/L BUN 28 H (7-17) mg/dL Creatinine 4.46 H (0.52-1.04) mg/dL Glucose 216 H (74-99) mg/dL POC Glucose (mg/dL) 147 H 160 H (75-99) mg/dL 02/10/17 02/10/17 Range/Units 05:26 06:24 WBC 2.9 L (3.8-10.6) k/uL RBC 2.59 L (3.80-5.40) m/uL Hgb 8.7 L (11.4-16.0) gm/dL Hct 26.4 L (34.0-46.0) % MCV 102.0 H (80.0-100.0) fL RDW 16.7 H (11.5-15.5) % Plt Count 134 L (150-450) k/uL Lymphocytes # 0.6 L (1.0-4.8) k/uL Potassium (3.5-5.1) mmol/L Chloride (98-107) mmol/L Carbon Dioxide (22-30) mmol/L BUN (7-17) mg/dL Creatinine (0.52-1.04) mg/dL Glucose (74-99) mg/dL POC Glucose (mg/dL) 205 H (75-99) mg/dL Assessment and Plan Plan: Assessment Acute respiratory failure due to fluid overload and acute pulmonary edema requiring supplemental oxygen End-stage renal disease on dialysis Thursday and Saturdays Congestive heart failure with dyspnea on admission Hypertension with hypertensive crisis, improved Chronic anemia Diabetes mellitus type 2 Plan Patient could be cleared for discharge from a pulmonary standpoint in the near future. Medications have been reviewed and will be continued as ordered. All labs and reports have been reviewed. Continue with pulmonary hygiene, coughing and deep breathing exercises, and supportive care. Supplemental oxygen to maintain oxygen saturations of 92% or better. Nephrology and cardiology on consult and appreciate recommendations. GI and DVT prophylaxis. We will continue to monitor labs/results and adjust treatment as necessary. Further recommendations pending. I performed an examination of the patient and discussed their management with the nurse practitioner. I have reviewed the nurse practitioner's note and agree with the documented findings and plan of care.
[2017-02-10 11:43] LABS: Glucose,Whole Blood 211 mg/dL (75-99)
--- NOTE | 2017-02-10 14:06 | P.PN ---
Subjective Principal diagnosis: Diastolic Heart Failure, uncontrolled hypertension This is a pleasant 51-year-old female patient with history of end- stage renal disease, hypertension. Presented to the hospital symptoms of congestive heart failure and uncontrolled hypertension. She underwent dialysis on Thursday and Thursday and is feeling quite a bit better. Her breathing is better. She denies any complaints of chest discomfort. She's been up out of bed walking without difficulties. Her blood pressure is better controlled today. She is currently on amlodipine 10 mg by mouth daily, carvedilol was increased to 25mg BID yesterday, clonidine 0.3 mg 3 times a day and furosemide 80 mg twice a day. Objective - Vital Signs Vital signs: Vital Signs Temp 97.5 F L 02/10/17 04:00 Pulse 77 02/10/17 04:00 Resp 18 02/10/17 04:00 BP 155/71 02/10/17 04:00 Pulse Ox 97 02/10/17 04:00 Intake & Output 02/09/17 02/10/17 02/10/17 18:59 06:59 18:59 Intake Total 580 240 Output Total 3 Balance 577 240 Weight 74.1 kg Intake: Oral 580 240 Output: Urine 0 Stool 3 Other: Voiding Method Toilet Toilet # Voids 1 - Exam PHYSICAL EXAMINATION: HEENT: Head is atraumatic, normocephalic. Pupils equal, round. Neck is supple. There is no elevated jugular venous pressure. HEART EXAMINATION: Heart sounds regular, S1 and S2 normal. No murmur or gallop heard. CHEST EXAMINATION: Lungs CTA. No chest wall tenderness is noted on palpation or with deep breathing. ABDOMEN: Soft, nontender. Bowel sounds are heard. No organomegaly noted. EXTREMITIES: No evidence of peripheral edema and no calf tenderness noted. NEUROLOGIC patient is awake, alert and oriented x3. . - Labs CBC & Chem 7: 02/10/17 05:26 02/10/17 05:26 Labs: Abnormal Lab Results - Last 24 Hours (Table) 02/09/17 02/10/17 02/10/17 Range/Units 16:54 05:26 05:26 WBC 2.9 L (3.8-10.6) k/uL RBC 2.59 L (3.80-5.40) m/uL Hgb 8.7 L (11.4-16.0) gm/dL Hct 26.4 L (34.0-46.0) % MCV 102.0 H (80.0-100.0) fL RDW 16.7 H (11.5-15.5) % Plt Count 134 L (150-450) k/uL Lymphocytes # 0.6 L (1.0-4.8) k/uL Potassium 5.4 H (3.5-5.1) mmol/L Chloride 93 L (98-107) mmol/L Carbon Dioxide 31 H (22-30) mmol/L BUN 28 H (7-17) mg/dL Creatinine 4.46 H (0.52-1.04) mg/dL Glucose 216 H (74-99) mg/dL POC Glucose (mg/dL) 160 H (75-99) mg/dL 02/10/17 02/10/17 Range/Units 06:24 11:41 WBC (3.8-10.6) k/uL RBC (3.80-5.40) m/uL Hgb (11.4-16.0) gm/dL Hct (34.0-46.0) % MCV (80.0-100.0) fL RDW (11.5-15.5) % Plt Count (150-450) k/uL Lymphocytes # (1.0-4.8) k/uL Potassium (3.5-5.1) mmol/L Chloride (98-107) mmol/L Carbon Dioxide (22-30) mmol/L BUN (7-17) mg/dL Creatinine (0.52-1.04) mg/dL Glucose (74-99) mg/dL POC Glucose (mg/dL) 205 H 211 H (75-99) mg/dL Assessment and Plan Plan: Assessment and plan #1 end-stage renal disease, on hemodialysis #2 hypertension, improved #3 diabetes mellitus #4 anemia #5 acute diastolic congestive heart failure, improved From cardiology's perspective, the patient is stable for discharge home. She will follow-up in the office in 2 to 3 weeks. Continue carvedilol 25 mg BID, clonidine 0.3mg TID, amlodipine 10mg daily, and hydralazine 100mg TID. HI LIFT OPERATOR note has been reviewed, I agree with a documented findings and plan of care. Patient was seen and examined.
[2017-02-10 14:18] VITALS: BMI 28.9
[2017-02-10 16:37] LABS: Glucose,Whole Blood 127 mg/dL (75-99)
[2017-02-10 19:22] LABS: Hepatitis B Surface Antibody Non-Reactive (Non-Reactive)
--- NOTE | 2017-02-10 20:12 | PN ---
PROGRESS NOTE The patient is seen for followup for end-stage renal disease and fluid overload. She was dialyzed yesterday and we have 3 L of ultrafiltration. The patient will be dialyzed again today. She is feeling much better. She did not have much cramps with 3 L of fluid removal yesterday. EXAMINATION: Blood pressure is 155/71, heart rate 77 per minute. She is afebrile. HEART: S1, S2. LUNGS: Bilateral breath sounds are heard. No crackles or wheezing is heard. ABDOMEN: Soft, nontender. Lower extremities show no evidence of edema. COAL CUTTING MACHINE OPERATOR: Grossly intact. LABS SHOW: Sodium 137, potassium 5.4, BUN 28, serum creatinine 4.46. Hemoglobin of 8.7 g/dL. ASSESSMENT: 1. End-stage renal disease on hemodialysis on a Thursday, , Thursday schedule routinely. 2. Mild hyperkalemia. Expect improvement with hemodialysis today. 3. Fluid overload, currently improved. The patient will be dialyzed again today with about 3 L of fluid removal. 4. Anemia of chronic disease maintained on Aranesp. No active bleeding noted. PLAN: Hemodialysis today. Patient can be discharged post dialysis and follow up as outpatient. MMODL / IJN: [id number] /
--- NOTE | 2017-02-10 20:36 | PN ---
PROGRESS NOTE SUBJECTIVE: 51-year-old, white female who was admitted to Selective Care unit for four days dialysis, uncontrolled hypertension, blood pressures has been stabilized. PHYSICAL EXAMINATION: Vital signs stable. Afebrile. Cardiovascular S1, S2. Lungs transmitted upper sounds. Hematology: Negative Homans. PSYCH: Fair mood and affect. ASSESSMENT: 1. Hypertension acceleration. 2. Congestive heart failure secondary to end-stage renal disease. Increase dialysis for 4 days. Possible discharge home tomorrow. MMODL / IJN: [id number] /
[2017-02-10 20:54] LABS: Glucose,Whole Blood 238 mg/dL (75-99)
[2017-02-10] MEDS: ATORVASTATIN 40 MG TAB PO SCH (20:54)
[2017-02-10] MEDS: CYCLOBENZAPRINE 5 MG TAB PO SCH (20:54)
[2017-02-11] MEDS: HYDROcodone/APAP 7.5-325MG 1 EACH TAB PO PRN ×2 (04:20→13:27)
[2017-02-11] MEDS: SODIUM CHLORIDE 0.9% 1,000 ML IV SCH (04:48)
[2017-02-11 05:58] LABS: Glucose,Whole Blood 173 mg/dL (75-99)
[2017-02-11 06:23] LABS: Anisocytosis Slight; Basophils % (A) 1 %; CH 33.7; CHCM 33.1; Eosinophils # (A) 0.1 k/uL (0-0.7); Eosinophils % (A) 3 %; HCT 25.8 % (34.0-46.0); HDW 3.84; HGB 8.4 gm/dL (11.4-16.0); Hypochromasia Slight; Luc # (Auto) 0.05; Luc % (Auto) 2; Lymphocytes # (A) 0.5 k/uL (1.0-4.8); Lymphocytes % (A) 19 %; MCH 33.4 pg (25.0-35.0); MCHC 32.6 g/dL (31.0-37.0); MCV 102.5 fL (80.0-100.0); Macrocytosis Moderate; Mean Platelet Volume 8.1; Monocytes # (A) 0.2 k/uL (0-1.0); Monocytes % (A) 8 %; Neutrophils # (A) 1.7 k/uL (1.3-7.7); Neutrophils % (A) 67 %; Poikilocytosis Slight; RBC 2.52 m/uL (3.80-5.40); RDW 16.4 % (11.5-15.5); WBC 2.5 k/uL (3.8-10.6); WBC (Perox) 2.77
[2017-02-11] MEDS: SEVELAMER 800 MG TAB PO SCH ×2 (06:27→12:30)
[2017-02-11] MEDS: CARVEDILOL 12.5 MG TAB PO SCH (06:27)
[2017-02-11 06:33] LABS: Calcium 9.4 mg/dL (8.4-10.2); Magnesium 2.1 mg/dL (1.6-2.3); Potassium 5.4 mmol/L (3.5-5.1)
[2017-02-11] MEDS: PROCHLORPERAZINE 5 MG TAB PO PRN (08:35)
[2017-02-11] MEDS: INSULIN NPL/INSULIN LISPRO 100 UNIT/ML 10 ML VIAL (Humalog 75/25) SQ SCH ×2 (08:38→12:29)
[2017-02-11] MEDS: INSULIN GLARGINE 100 UNIT/ML 10 ML VIAL SQ SCH (08:38)
[2017-02-11] MEDS: INSULIN LISPRO (humaLOG) 300 UNIT/3 ML VIAL SQ SCH ×2 (08:39→12:31)
[2017-02-11] MEDS: CALCIUM ACETATE 667 MG CAP PO SCH (08:40)
[2017-02-11] MEDS: amLODIPine 10 MG TAB PO SCH (08:40)
[2017-02-11] MEDS: FOLIC ACID-VIT B COMPLEX-VIT C 1 CAP PO SCH (08:41)
[2017-02-11] MEDS: cloNIDine HCL 0.1 MG TAB PO SCH (08:41)
[2017-02-11] MEDS: hydrALAZINE HCL 50 MG TAB PO SCH (08:42)
[2017-02-11] MEDS: levOCARNitine (WITH SUGAR) 100 MG/ML BOTTLE PO SCH (08:42)
[2017-02-11] MEDS: FUROSEMIDE 40 MG TAB PO SCH (08:42)
[2017-02-11] MEDS: MAGNESIUM OXIDE 400 MG TAB PO SCH ×2 (08:44→13:28)
[2017-02-11] MEDS: VITAMIN E (DL,TOCOPHERYL ACET) 400 UNIT CAP PO SCH (08:44)
[2017-02-11] MEDS: PANTOPRAZOLE 40 MG TABLET PO SCH (08:44)
--- NOTE | 2017-02-11 09:15 | US ---
EXAMINATION TYPE: US liver DATE OF EXAM: 02/11/2017 COMPARISON: 08/26/2016 CLINICAL HISTORY: liver pretransplant kidney eval. EXAM MEASUREMENTS: Liver Length: 19.2 cm Gallbladder Wall: 0.2 cm CBD: 0.6cm distal, tapers to 0.3cm near head of pancrease Right Kidney: 9.1 x 3.1 x 3.2 cm Pancreas: Obscured by bowel gas Liver: Unchanged prominent in size. Hepatic echotexture is unremarkable. Gallbladder: wnl Evidence for sonographic Campos's sign: no CBD: wnl Right Kidney: No hydronephrosis or masses seen IMPRESSION: 1. No sonographic sequela of hepatocellular disease. The liver is prominent in size, unchanged from t he prior. 2. Gallbladder and common bile duct appear within normal limits with nonvisualization of the previous ly suggested polyp versus gallstone. This may have represented biliary sludge.
[2017-02-11 10:14] VITALS: PULSE 74
--- NOTE | 2017-02-11 10:27 | P.PN ---
Subjective Progress Note Date: 02/11/17 02/11/17- patient is being seen examined and evaluated today and selective care unit. Patient is resting up in bed on room air. She denies any shortness of breath or cough or congestion at this time. She is feeling significantly better. Her blood pressures have remained relatively stable. All labs and reports have been reviewed. She is afebrile, no further point. She is being possibly discharged today. 02/10/17-patient is being seen examined and evaluated today on the selective care unit. Upon examination the patient's resting up in bed on room air. Patient denies any shortness of breath cough or congestion. She states she is feeling significantly better and is anxious for discharge. Cardiology is on consult and is adjusting medications for her uncontrolled hypertension. She is afebrile, no further complaints. All lab reports have been reviewed. 02/09/17-This is a 51-year-old female patient being seen examined and evaluated today. She came into the hospital for some progressive worsening shortness of breath over the weekend. She was admitted to the hospital with a hypertensive urgency, congestive heart failure and some pulmonary edema. Patient was seen by Dr. XAVIER Romero over the weekend who was covering for Dr. Bobby, please see his notes for days covered. This patient is a end-stage renal disease patient is on hemodialysis. Initially the patient was requiring supplemental oxygen, Upon examination today the patient's resting up in bed on room air she states her shortness of breath has improved slightly in the last day. Denies any cough or congestion at this time. All labs and reports have been reviewed. Objective - Vital Signs Vital signs: Vital Signs Temp 96.9 F L 02/11/17 07:55 Pulse 74 02/11/17 07:55 Resp 18 02/11/17 07:55 BP 169/72 02/11/17 07:55 Pulse Ox 97 02/11/17 07:55 Intake & Output 02/10/17 02/11/17 02/11/17 18:59 06:59 18:59 Intake Total 960 20 240 Balance 960 20 240 Weight 74.1 kg 74.3 kg Intake: Intake, IV Titration 20 Amount Sodium Chloride 0.9% 1, 20 000 ml @ 20 mls/hr IV . Q24H [facility] Rx#:[id number] Oral 960 240 Other: Voiding Method Toilet Toilet # Voids 0 # Bowel Movements 0 - Exam GENERAL EXAM: Alert, active, comfortable in no apparent distress. HEAD: Normocephalic. EYES: Normal reaction of pupils, equal size. NOSE: Clear with pink turbinates. THROAT: No erythema or exudates. NECK: No masses, no JVD. CHEST: No chest wall deformity. LUNGS: Equal air entry with no crackles, wheeze, rhonchi or dullness. CVS: S1 and S2 normal with no audible mumurs, regular rhythm. ABDOMEN: No hepatosplenomegaly, normal bowel sounds, no guarding or rigidity. EXTREMITIES: No edema noted, pedal pulses palpable. SKIN: No rashes CENTRAL NERVOUS SYSTEM: No focal deficits, tone is normal in all 4 extremities. - Labs CBC & Chem 7: 02/11/17 05:37 02/11/17 05:37 Labs: Abnormal Lab Results - Last 24 Hours (Table) 02/10/17 02/10/17 02/10/17 Range/Units 11:41 16:35 20:52 WBC (3.8-10.6) k/uL RBC (3.80-5.40) m/uL Hgb (11.4-16.0) gm/dL Hct (34.0-46.0) % MCV (80.0-100.0) fL RDW (11.5-15.5) % Plt Count (150-450) k/uL Lymphocytes # (1.0-4.8) k/uL Sodium (137-145) mmol/L Potassium (3.5-5.1) mmol/L Chloride (98-107) mmol/L BUN (7-17) mg/dL Creatinine (0.52-1.04) mg/dL Glucose (74-99) mg/dL POC Glucose (mg/dL) 211 H 127 H 238 H (75-99) mg/dL Phosphorus (2.5-4.5) mg/dL 02/11/17 02/11/17 02/11/17 Range/Units 05:37 05:37 05:56 WBC 2.5 L (3.8-10.6) k/uL RBC 2.52 L (3.80-5.40) m/uL Hgb 8.4 L (11.4-16.0) gm/dL Hct 25.8 L (34.0-46.0) % MCV 102.5 H (80.0-100.0) fL RDW 16.4 H (11.5-15.5) % Plt Count 120 L (150-450) k/uL Lymphocytes # 0.5 L (1.0-4.8) k/uL Sodium 133 L (137-145) mmol/L Potassium 5.4 H (3.5-5.1) mmol/L Chloride 96 L (98-107) mmol/L BUN 31 H (7-17) mg/dL Creatinine 4.80 H (0.52-1.04) mg/dL Glucose 172 H (74-99) mg/dL POC Glucose (mg/dL) 173 H (75-99) mg/dL Phosphorus 5.0 H (2.5-4.5) mg/dL Assessment and Plan Plan: Assessment Acute respiratory failure due to fluid overload and acute pulmonary edema requiring supplemental oxygen End-stage renal disease on dialysis Thursday and Saturdays Congestive heart failure with dyspnea on admission Hypertension with hypertensive crisis, improved Chronic anemia Diabetes mellitus type 2 Plan Patient could be cleared for discharge from a pulmonary standpoint in the near future. Patient should follow up in the outpatient setting for possible sleep study. Medications have been reviewed and will be continued as ordered. All labs and reports have been reviewed. Continue with pulmonary hygiene, coughing and deep breathing exercises, and supportive care. Supplemental oxygen to maintain oxygen saturations of 92% or better. Nephrology and cardiology on consult and appreciate recommendations. GI and DVT prophylaxis. We will continue to monitor labs/results and adjust treatment as necessary. Further recommendations pending. I performed an examination of the patient and discussed their management with the nurse practitioner. I have reviewed the nurse practitioner's note and agree with the documented findings and plan of care.
--- NOTE | 2017-02-11 11:06 | P.PN ---
Subjective Progress Note Date: 02/11/17 Principal diagnosis: Diastolic Heart Failure, uncontrolled hypertension This is a pleasant 51-year-old female patient with history of end- stage renal disease, hypertension. Presented to the hospital symptoms of congestive heart failure and uncontrolled hypertension. She underwent extra dialysis treatments and is feeling quite a bit better. Her breathing is better. She denies any complaints of chest discomfort. She's been up out of bed walking without difficulties. Her blood pressure is better controlled today. She is currently on amlodipine 10 mg by mouth daily, carvedilol 25mg BID yesterday, clonidine 0.3 mg 3 times a day and furosemide 80 mg twice a day. She is anticipating discharge today. Objective - Vital Signs Vital signs: Vital Signs Temp 96.9 F L 02/11/17 07:55 Pulse 74 02/11/17 07:55 Resp 18 02/11/17 07:55 BP 169/72 02/11/17 07:55 Pulse Ox 97 02/11/17 07:55 Intake & Output 02/10/17 02/11/17 02/11/17 18:59 06:59 18:59 Intake Total 960 20 240 Balance 960 20 240 Weight 74.1 kg 74.3 kg Intake: Intake, IV Titration 20 Amount Sodium Chloride 0.9% 1, 20 000 ml @ 20 mls/hr IV . Q24H [facility] Rx#:[id number] Oral 960 240 Other: Voiding Method Toilet Toilet # Voids 0 # Bowel Movements 0 - Exam PHYSICAL EXAMINATION: HEENT: Head is atraumatic, normocephalic. Pupils equal, round. Neck is supple. There is no elevated jugular venous pressure. HEART EXAMINATION: Heart sounds regular, S1 and S2 normal. No murmur or gallop heard. CHEST EXAMINATION: Lungs CTA. No chest wall tenderness is noted on palpation or with deep breathing. ABDOMEN: Soft, nontender. Bowel sounds are heard. No organomegaly noted. EXTREMITIES: No evidence of peripheral edema and no calf tenderness noted. NEUROLOGIC patient is awake, alert and oriented x3. . - Labs CBC & Chem 7: 02/11/17 05:37 02/11/17 05:37 Labs: Abnormal Lab Results - Last 24 Hours (Table) 02/10/17 02/10/17 02/10/17 Range/Units 11:41 16:35 20:52 WBC (3.8-10.6) k/uL RBC (3.80-5.40) m/uL Hgb (11.4-16.0) gm/dL Hct (34.0-46.0) % MCV (80.0-100.0) fL RDW (11.5-15.5) % Plt Count (150-450) k/uL Lymphocytes # (1.0-4.8) k/uL Sodium (137-145) mmol/L Potassium (3.5-5.1) mmol/L Chloride (98-107) mmol/L BUN (7-17) mg/dL Creatinine (0.52-1.04) mg/dL Glucose (74-99) mg/dL POC Glucose (mg/dL) 211 H 127 H 238 H (75-99) mg/dL Phosphorus (2.5-4.5) mg/dL 02/11/17 02/11/17 02/11/17 Range/Units 05:37 05:37 05:56 WBC 2.5 L (3.8-10.6) k/uL RBC 2.52 L (3.80-5.40) m/uL Hgb 8.4 L (11.4-16.0) gm/dL Hct 25.8 L (34.0-46.0) % MCV 102.5 H (80.0-100.0) fL RDW 16.4 H (11.5-15.5) % Plt Count 120 L (150-450) k/uL Lymphocytes # 0.5 L (1.0-4.8) k/uL Sodium 133 L (137-145) mmol/L Potassium 5.4 H (3.5-5.1) mmol/L Chloride 96 L (98-107) mmol/L BUN 31 H (7-17) mg/dL Creatinine 4.80 H (0.52-1.04) mg/dL Glucose 172 H (74-99) mg/dL POC Glucose (mg/dL) 173 H (75-99) mg/dL Phosphorus 5.0 H (2.5-4.5) mg/dL Assessment and Plan Plan: Assessment and plan #1 end-stage renal disease, on hemodialysis #2 hypertension, improved #3 diabetes mellitus #4 anemia #5 acute diastolic congestive heart failure, improved From cardiology's perspective, the patient is stable for discharge home. She will follow-up in the office in 2 to [address] Tesfaye. Continue carvedilol 25 mg BID, clonidine 0.3mg TID, amlodipine 10mg daily, and hydralazine 100mg TID. AUTOMATIC MOUNTER note has been reviewed, I agree with a documented findings and plan of care. Patient was seen and examined.
[2017-02-11 12:06] LABS: Glucose,Whole Blood 237 mg/dL (75-99)
[2017-02-11 14:03] VITALS: BP 142/67; TEMP 97.3
--- NOTE | 2017-02-11 16:37 | PN ---
PROGRESS NOTE Patient is seen for followup for end-stage renal disease. She is being dialyzed on a Thursday, , Thursday schedule. The patient had volume overload and she was dialyzed more frequently earlier in the week. She is scheduled for hemodialysis tomorrow. PHYSICAL EXAMINATION: Blood pressure is 142/67, heart rate 74 per minute. Patient is afebrile. EXAMINATION OF THE HEART: S1, S2. EXAMINATION OF LUNGS: Bilateral breath sounds are heard. ABDOMEN: Soft, non-tender. Examination of lower extremities shows no evidence of edema. REINFORCING ROD LAYER exam is grossly intact. LABS: Sodium 133, potassium 5.4, BUN 31, serum creatinine 4.8, hemoglobin 8.4 g/dL. ASSESSMENT: 1. End-stage renal disease, on hemodialysis on a Thursday, , Thursday schedule out of [place]. 2. Mild hyperkalemia. Expect improvement with hemodialysis tomorrow. 3. Fluid overload, currently significantly improved. 4. Anemia of chronic disease with no active bleeding noted; maintained on Aranesp. PLAN: Hemodialysis in a.m. if the patient is still in the hospital. Otherwise, she could be discharged from nephrology standpoint. MMODL / IJN: [id number] /
--- NOTE | 2017-04-03 18:27 | DS ---
DISCHARGE SUMMARY DATE OF ADMISSION: 02/07/17 DATE OF DISCHARGE: 02/11/2017. DISCHARGE MEDICATIONS: Lipitor 40 mg daily, omeprazole 20 mg daily, Magonate 1000 mg daily, Flexeril 5 mg daily, lidocaine 4% cream topically Thursday and , Thursday. Lasix 40 mg b.i.d., Lantus 70 units q.a.m., Compazine 5 mg b.i.d., PhosLo 667 t.i.d., lispro, Humalog 75/25 60 units t.i.d., hydralazine 100 mg t.i.d., tramadol 50 mg q.8 hours, hydralazine 100 mg t.i.d., Triphrocaps 1 daily, Renvela 2400 mg t.i.d., Lopressor 25 mg daily, Magonate 500 mg daily, Clonidine 0.3 mg t.i.d., Requip 0.5 mg q.h.s., Norvasc 5 mg daily, [place] 5/325 q.12 hours p.r.n., levocarnitine 300 mg b.i.d. CONDITION: Stable. PROGNOSIS: Guarded. Ambulate as tolerated. ASSESSMENT: 1. Anemia of chronic disease. 2. Fluid overload. 3. Hyperkalemia. 4. End-stage renal disease. 5. Diastolic heart failure. 6. Uncontrolled hypertension. 7. Hyponatremia. 8. Hyperkalemia. 9. Diabetes mellitus. HOSPITAL COURSE OF EVENTS: This is a white female who came in with diastolic heart failure. Started on IV steroids, IV Lasix. Seen for Cardiology, Pulmonology. IV diuresis for congestive heart failure was given. 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 Renal physician for renal disease. [employer] for end-stage fluid overload with pulmonary edema. The patient is stabilized from medical standpoint. Follow up as an outpatient. MMODL / IJN: [id number] /
== END 2017-02-11 16:33 | disposition home or self-care (01) | DRG 291 ==
LOC: EC 23:08 → 6ICU 02-07 02:17 → 6SEL 02-08 19:25
PROVIDERS: ADMIT Family Medicine; ATTEND Family Medicine
PROC: 5A1D70Z Performance of Urinary Filtration, Intermittent, Less than 6 Hours Per Day (ICD-10-PCS; principal; 2017-02-07)
DX: I13.2 Hypertensive heart and chronic kidney disease with heart failure and with stage 5 chronic kidney disease, or end stage renal disease (principal); I50.31 Acute diastolic (congestive) heart failure; J96.00 Acute respiratory failure, unspecified whether with hypoxia or hypercapnia; E11.22 Type 2 diabetes mellitus with diabetic chronic kidney disease; D61.818 Other pancytopenia; N18.6 End stage renal disease; I16.1 Hypertensive emergency; E11.65 Type 2 diabetes mellitus with hyperglycemia; G51.0 Bell's palsy; E78.1 Pure hyperglyceridemia; F41.9 Anxiety disorder, unspecified; E87.5 Hyperkalemia; M89.9 Disorder of bone, unspecified; D63.8 Anemia in other chronic diseases classified elsewhere; Z99.2 Dependence on renal dialysis; Z79.4 Long term (current) use of insulin; Z79.899 Other long term (current) drug therapy; Z80.0 Family history of malignant neoplasm of digestive organs; Z82.49 Family history of ischemic heart disease and other diseases of the circulatory system; Z83.3 Family history of diabetes mellitus; Z87.01 Personal history of pneumonia (recurrent); Z88.1 Allergy status to other antibiotic agents; Z87.19 Personal history of other diseases of the digestive system; Z91.041 Radiographic dye allergy status
CPT/HCPCS: 36415; 71010; 76705; 80048; 80053; 81001; 82550; 82553; 83036; 83735; 83880; 84100; 84484; 85025; 85610; 85730; 86705; 86706; 87340; 90935; 93005; 93306; 94660; 96365; 96375; 96376; 99291

== ENCOUNTER 2017-02-15 21:35 | Emergency (ER) | payer OTHER ==
[2017-02-15] MEDS ORDERED: DIAZEPAM 5 MG/ML 2 ML SYRINGE IVP STA (22:33)
--- NOTE | 2017-02-15 22:39 | ED ---
Extremity Problem HPI - General Chief complaint: Extremity Problem,Nontraumatic Stated complaint: swelling in hand/arm pain Time Seen by Provider: 02/15/17 22:15 Source: patient, RN notes reviewed, old records reviewed Mode of arrival: ambulatory Limitations: no limitations - History of Present Illness Initial comments: This is a 51-year-old female presents emergency Department chief and hand cramping. Patient reports she is a dialysis patient, last dialysis was yesterday. She does have her dialysis and her left arm. Patient states she was recently admitted for CHF exacerbation, and had 6 episodes of dialysis while in the hospital as well as 2 further episodes of dialysis when she returned home. Patient states that since she's had to have dialysis she's had some intermittent left hand swelling. She reports that she she is more concerned because she's had increased cramping all over her body but specifically her left hand. Patient states that she has no numbness or tingling. Denies any fall or trauma to the hand or arm. - Related Data Home Medications Medication Instructions Recorded Confirmed Atorvastatin [Lipitor] 40 mg PO HS 09/14/15 02/15/17 Cyclobenzaprine [Flexeril] 5 mg PO HS 09/14/15 02/15/17 Magnesium Gluconate [Magonate] 1,000 mg PO AC-BRKFST 09/14/15 02/15/17 Omeprazole [PriLOSEC] 20 mg PO DAILY 09/14/15 02/15/17 Furosemide [Lasix] 40 mg PO BID 03/12/16 02/15/17 Lidocaine 4% Cream [Lmx 4] 1 applic TOPICAL TUTHSA 03/12/16 02/15/17 Insulin Glargine [Lantus] 70 unit SQ QAM 04/18/16 02/15/17 Calcium Acetate [PhosLo] 667 mg PO TID 05/14/16 02/15/17 Prochlorperazine [Compazine] 5 mg PO BID PRN 05/14/16 02/15/17 Insulin NPL/Insulin Lispro 16 unit SQ AC-TID 06/05/16 02/15/17 [humaLOG MIX 75-25 VIAL] Triphrocap 1mg 1 cap PO DAILY 09/12/16 02/15/17 Insulin NPL/Insulin Lispro See Protocol SQ AC-TID PRN 12/16/16 02/15/17 [humaLOG MIX 75-25 VIAL] Magnesium Gluconate [Magonate] 500 mg PO W/LUNCH 12/16/16 02/15/17 Metoprolol Tartrate [Lopressor] 25 mg PO DAILY 12/16/16 02/15/17 Sevelamer [Renvela] 2,400 mg PO AC-TID 12/16/16 02/15/17 Vitamin E 1,000 unit PO DAILY 12/16/16 02/15/17 cloNIDine HCL 0.3 mg PO TID 12/16/16 02/15/17 HYDROcodone/APAP 5-325MG [[place] 1 tab PO BID PRN 02/07/17 02/15/17 5-325] amLODIPine [Norvasc] 5 mg PO DAILY 02/07/17 02/15/17 rOPINIRole HCL [Requip] 0.5 mg PO HS 02/07/17 02/15/17 Previous Rx's Medication Instructions Recorded hydrALAZINE HCL [Apresoline] 100 mg PO TID #180 tab 06/10/16 traMADol HCl [Ultram] 50 mg PO TID PRN #30 tab 06/10/16 Levocarnitine (with Sugar) 300 mg PO BID #118 ml 02/11/17 [Levocarnitine 1 G/10 ml Oral Soln] Sodium Polystyrene Sulfonate 30 gm PO DAILY #60 ml 02/16/17 [Kayexalate] Allergies Allergy/AdvReac Type Severity Reaction Status Date / Time ciprofloxacin [From Cipro] AdvReac AFFECTED Verified 02/07/17 10:53 EYESIGHT ciprofloxacin HCl AdvReac AFFECTED Verified 02/07/17 10:53 [From Cipro] EYESIGHT Iodinated Contrast- Oral and AdvReac RENAL Verified 02/07/17 10:53 IV Dye FAILURE Review of Systems ROS Statement: Those systems with pertinent positive or pertinent negative responses have been documented in the HPI. ROS Other: All systems not noted in ROS Statement are negative. Past Medical History Past Medical History: Diabetes Mellitus, Dialysis, Hyperlipidemia, Hypertension , Pneumonia, Renal Disease Additional Past Medical History / Comment(s): Recent bronchitis-completed ABX, hypertriglyceridemia-induced acute pancreatitis, necrotizing pancreatitis-sent [facility] for acute kidney injury 2 months in 2009 after pancreatic surgery, 11/2015 diagnosed with chronic kidney disease-hemodialysis TU //, IDDM type II, chronic anemia, occasional back pain, carter's palsey x2, past L leg fx. History of Any Multi-Drug Resistant Organisms: None Reported Past Surgical History: Uterine Ablation Additional Past Surgical History / Comment(s): pancreatic resection at [facility] 2009, bone marrow biopsies X2-last one 05/19/16,. dialysis chest port x 2 with removals, Left arm shunt placement for dialysis - December 2015 Past Anesthesia/Blood Transfusion Reactions: No Reported Reaction Additional Past Anesthesia/Blood Transfusion Reaction / Comment(s): Pt has received blood transfusions without reaction-last transfusion 06/04/16. Past Psychological History: No Psychological Hx Reported Smoking Status: Never smoker Past Alcohol Use History: None Reported Past Drug Use History: None Reported - Past Family History Brother(s) Family Medical History: No Reported History Mother Family Medical History: Cancer, Diabetes Mellitus, Hypertension Additional Family Medical History / Comment(s): Mother of throat cancer at the age of 63 yrs. She was a smoker. Father Family Medical History: Coronary Artery Disease (CAD), Hyperlipidemia, Hypertension Additional Family Medical History / Comment(s): Father is 70 yrs old. General Exam - General Exam Comments Initial Comments: 51-year-old female. No acute distress. Limitations: no limitations General appearance: alert, in no apparent distress Head exam: Present: atraumatic, normocephalic, normal inspection Eye exam: Present: normal appearance, PERRL, EOMI. Absent: scleral icterus, conjunctival injection, periorbital swelling ENT exam: Present: normal exam, mucous membranes moist Neck exam: Present: normal inspection. Absent: tenderness, meningismus, lymphadenopathy Respiratory exam: Present: normal lung sounds bilaterally. Absent: respiratory distress, wheezes, rales, rhonchi, stridor Cardiovascular Exam: Present: regular rate, normal rhythm, normal heart sounds. Absent: systolic murmur, diastolic murmur, rubs, gallop, clicks GI/Abdominal exam: Present: soft, normal bowel sounds. Absent: distended, tenderness, guarding, rebound, rigid Extremities exam: Present: normal inspection, full ROM, normal capillary refill , other (Left upper arm has evidence of AV fistula site. Left hand does have significant edema compared to right hand. No redness. Full range of motion noted. Patient is neurovascularly intact.). Absent: tenderness, pedal edema, joint swelling, calf tenderness Left Shoulder Exam: Present: normal inspection, full ROM Upper Arm exam: Present: normal inspection, full ROM Elbow exam: Present: normal inspection, full ROM Forearm Wrist exam: Present: normal inspection, full ROM Hand Wrist exam: Present: normal inspection (warm compared to right arm), full ROM Back exam: Present: normal inspection, full ROM Neurological exam: Present: alert, oriented X3, CN II-XII intact Psychiatric exam: Present: normal affect, normal mood Skin exam: Present: warm, dry, intact, normal color. Absent: rash Course Vital Signs 02/15/17 21:46 Temperature 98.1 F Pulse Rate 93 Respiratory 20 Rate Blood Pressure 214/93 O2 Sat by Pulse 98 Oximetry Medical Decision Making - Medical Decision Making 11-year-old female presents emergency Department. She also reports some swelling. She's had intermittent swelling off and on since she's had an AV fistula. Patient reports that her left arm does feel warm to touch compared to her right. That does seem to be chronic. She reports that she is here today she's had increased cramping in her hand. Patient's labwork was reviewed and showed elevated potassium of 6.2. EKG shows no acute changes including peaked T waves. Patient was given by mouth Kayexalate and 8 units of insulin. Her sugar is also noted to be 374. Patient will be treated as if there is a possible DVT with 1 dose of Lovenox in the emergency department. She'll be written for an outpatient ultrasound to be completed tomorrow morning. Is positive I discussed following up with her primary care provider or return to the for further evaluation. Patient agrees treatment plan will comply. Return parameters were discussed. - Lab Data Result diagrams: 02/15/17 22:54 02/15/17 22:54 Lab Results 02/15/17 02/15/17 Range/Units 22:54 22:54 WBC 2.9 L (3.8-10.6) k/uL RBC 2.36 L (3.80-5.40) m/uL Hgb 7.7 L (11.4-16.0) gm/dL Hct 23.8 L (34.0-46.0) % MCV 101.0 H (80.0-100.0) fL MCH 32.6 (25.0-35.0) pg MCHC 32.2 (31.0-37.0) g/dL RDW 16.4 H (11.5-15.5) % Plt Count 106 L (150-450) k/uL Neutrophils % 83 % Lymphocytes % 10 % Monocytes % 5 % Eosinophils % 1 % Basophils % 0 % Neutrophils # 2.4 (1.3-7.7) k/uL Lymphocytes # 0.3 L (1.0-4.8) k/uL Monocytes # 0.1 (0-1.0) k/uL Eosinophils # 0.0 (0-0.7) k/uL Basophils # 0.0 (0-0.2) k/uL Poikilocytosis Slight Anisocytosis Slight Macrocytosis Slight Sodium 132 L (137-145) mmol/L Potassium 6.2 H* (3.5-5.1) mmol/L Chloride 91 L (98-107) mmol/L Carbon Dioxide 26 (22-30) mmol/L Anion Gap 15 mmol/L BUN 48 H (7-17) mg/dL Creatinine 6.20 H* (0.52-1.04) mg/dL Est GFR (MDRD) Af Amer 9 (>60 ml/min/1.73 sqM) Est GFR (MDRD) Non-Af 7 (>60 ml/min/1.73 sqM) Glucose 348 H (74-99) mg/dL Calcium 9.2 (8.4-10.2) mg/dL Magnesium 1.6 (1.6-2.3) mg/dL Total Bilirubin 0.7 (0.2-1.3) mg/dL AST 35 (14-36) U/L ALT 49 (9-52) U/L Alkaline Phosphatase 126 (38-126) U/L Total Protein 7.1 (6.3-8.2) g/dL Albumin 4.4 (3.5-5.0) g/dL 02/16/17 00:32 EKG shows normal sinus rhythm. Ventricular rate of [address] interval 154 ms. Chemistry 92 Trisha's signs. She states been 90/[address] elevation or T -wave inversions. No significant abnormalities noted T waves. Disposition Clinical Impression: Swelling of left hand, Dialysis patient, Hyperkalemia Disposition: HOME SELF-CARE Condition: Good Instructions: Hyperkalemia (ED), Edema (ED) Additional Instructions: General advised to elevate her hand. Follow-up and get the Doppler ultrasound tomorrow. Patient also needs to take the Kayexalate doses. Patient should follow-up with her primary care provider or return to emergency department if any alarming signs or symptoms occur. Take your insulin as year supposed to use a sliding scale as necessary. Prescriptions: Sodium Polystyrene Sulfonate [Kayexalate] 30 gm PO DAILY #60 ml Referrals: David Bragg MD [Primary Care Provider] - 1-2 days Time of Disposition: 00:27
[2017-02-15 23:14] LABS: Anisocytosis Slight; Basophils % (A) 0 %; CH 34.5; CHCM 34.3; Eosinophils % (A) 1 %; HCT 23.8 % (34.0-46.0); HDW 3.52; HGB 7.7 gm/dL (11.4-16.0); Luc # (Auto) 0.03; Luc % (Auto) 1; Lymphocytes # (A) 0.3 k/uL (1.0-4.8); Lymphocytes % (A) 10 %; MCH 32.6 pg (25.0-35.0); MCHC 32.2 g/dL (31.0-37.0); Macrocytosis Slight; Mean Platelet Volume 8.1; Monocytes # (A) 0.1 k/uL (0-1.0); Monocytes % (A) 5 %; Neutrophils # (A) 2.4 k/uL (1.3-7.7); Neutrophils % (A) 83 %; Poikilocytosis Slight; RBC 2.36 m/uL (3.80-5.40); RDW 16.4 % (11.5-15.5); WBC 2.9 k/uL (3.8-10.6); WBC (Perox) 2.83
[2017-02-15 23:34] LABS: Calcium 9.2 mg/dL (8.4-10.2); Magnesium 1.6 mg/dL (1.6-2.3); Total Bilirubin 0.7 mg/dL (0.2-1.3); Total Protein 7.1 g/dL (6.3-8.2)
[2017-02-15 23:41] LABS: Potassium 6.2 mmol/L (3.5-5.1)
[2017-02-15] MEDS ORDERED: SODIUM POLYSTYRENE SULFONATE 15 GM/60 ML BOTTLE PO STA (23:42)
[2017-02-15] MEDS ORDERED: INSULIN REGULAR 100 UNIT/ML VIAL IV ONE (23:44)
[2017-02-16] MEDS ORDERED: ENOXAPARIN 30 MG/0.3 ML SYRINGE SQ STA (00:20)
[2017-02-16 00:33] VITALS: BP 185/86; PULSE 83; RESP 18; TEMP 98.3
== END 2017-02-16 00:44 | disposition home or self-care (01) ==
LOC: EC 21:35
DX: M79.89 Other specified soft tissue disorders (principal); E87.5 Hyperkalemia; M79.642 Pain in left hand; Z99.2 Dependence on renal dialysis; E11.9 Type 2 diabetes mellitus without complications; E78.5 Hyperlipidemia, unspecified; I10 Essential (primary) hypertension; Z79.4 Long term (current) use of insulin; Z79.899 Other long term (current) drug therapy; Z88.1 Allergy status to other antibiotic agents; Z91.041 Radiographic dye allergy status
CPT/HCPCS: 99284 ×2; 96374 ×2; 96372 ×2; 36415; 93005; 80053; 83735; 85025; J3360; J1650

== ENCOUNTER → 2017-02-21 | Outpatient (CLI) | payer OTHER ==
[~2017-02-21] MED LIST changes: +SODIUM CHLORIDE 0.9% 500 ML IV SCH; -SODIUM CHLORIDE 0.9% 500 ML in EMPTY BAG 1 BAG IV PRN
[2017-02-21 13:50] VITALS: RESP 18
[2017-02-21 18:18] VITALS: BP 167/80; PULSE 86; TEMP 98
== END | disposition home or self-care (01) ==
LOC: LABWHC1 11:36
PROVIDERS: ATTEND Internal Medicine
DX: D50.9 Iron deficiency anemia, unspecified (principal)
CPT/HCPCS: 36430; 86900; 86901; 86850; 86920; P9040

== ENCOUNTER → 2017-04-04 | Outpatient (CLI) | payer OTHER | END | disposition home or self-care (01) | LOC: LABWHC1 11:56 | PROVIDERS: ATTEND Nurse Practitioner Family | DX: Z53.9 Procedure and treatment not carried out, unspecified reason (principal) | CPT/HCPCS: 86850; 86900; 86901 ==

== ENCOUNTER 2017-04-05 13:25 | Outpatient (CLI) | payer OTHER ==
[2017-04-05 14:30] VITALS: RESP 18
[2017-04-05 16:19] VITALS: BP 167/85; PULSE 80; TEMP 97.4
== END 2017-04-05 16:22 | disposition home or self-care (01) ==
LOC: PEDOP 13:25
PROVIDERS: ATTEND Internal Medicine
DX: D64.9 Anemia, unspecified (principal)
CPT/HCPCS: 36430; 86900; 86901; 86850; 86920; P9016

== ENCOUNTER → 2017-07-15 | Outpatient (CLI) | payer OTHER ==
[~2017-07-15] MED LIST changes: -SODIUM CHLORIDE 0.9% 500 ML IV SCH; +SODIUM CHLORIDE 0.9% 500 ML in EMPTY BAG 1 BAG IV PRN
[2017-07-15 11:58] VITALS: RESP 16
[2017-07-15 14:10] VITALS: TEMP 97.9
[2017-07-15 15:30] VITALS: BP 161/76; PULSE 76
== END ==
LOC: PROCWHC3 11:25 → EDSTATUS 12:00
PROVIDERS: ATTEND Internal Medicine
DX: D63.8 Anemia in other chronic diseases classified elsewhere (principal)
CPT/HCPCS: 86900; 86901; 86850; 86920; 36430; 36415; P9016

== ENCOUNTER 2017-08-26 07:32 | Day surgery (SDC) | payer OTHER ==
[2017-08-21 17:56] VITALS: BMI 29.2
[~2017-08-26 07:32] MED LIST changes: +LACTATED RINGERS 1,000 ML IV SCH; +LIDOCAINE 1% 20 ML VIAL (10MG/ML) FOR IV START INTRADERMA PRN; -SODIUM CHLORIDE 0.9% 500 ML in EMPTY BAG 1 BAG IV PRN
[2017-08-26 08:16] VITALS: TEMP 97.6
[2017-08-26 08:23] LABS: Glucose,Whole Blood 148 mg/dL (75-99)
--- NOTE | 2017-08-26 08:27 | P.GSHP ---
History of Present Illness H&P Date: 08/26/17 Chief Complaint: Screening colonoscopy This is a 52-year-old female who presents for screening colonoscopy. She denies a significant GI complaints. Past Medical History Past Medical History: Blood Disorder, Diabetes Mellitus, Dialysis, Hyperlipidemia, Hypertension, Liver Disease, Pneumonia, Renal Disease Additional Past Medical History / Comment(s): hypertriglyceridemia-induced acute pancreatitis, THEN necrotizing pancreatitis. hemodialysis for acute kidney injury 2 months in 2009 after pancreatic OR, 11/2015 diagnosed w/ chronic kidney disease-hemodialysis //, IDDM type II, chronic anemia, occasional back pain, carter's palsy x2, past L leg fx. History of Any Multi-Drug Resistant Organisms: None Reported Past Surgical History: Uterine Ablation Additional Past Surgical History / Comment(s): pancreatic resection at [facility] 2009, bone marrow biopsies X2-last one 05/19/16,. dialysis chest port x 2 with removals, Left arm shunt placement for dialysis - December 2015 Past Anesthesia/Blood Transfusion Reactions: No Reported Reaction Additional Past Anesthesia/Blood Transfusion Reaction / Comment(s): Pt has received blood transfusions without reaction. Past Psychological History: No Psychological Hx Reported Additional Psychological History / Comment(s): Pt resides with spouse and 1 adult manish. She is independent. She uses no assistive device. She drives. Smoking Status: Never smoker Past Alcohol Use History: None Reported Additional Past Alcohol Use History / Comment(s): Patient is a lifelong nonsmoker. She denies any medical marijuana, marijuana, street drug use. She drinks alcohol on a very rare basis. She lives at home with her and 21- year-old daughter. There is a cat in the home. 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 Past Drug Use History: None Reported - Past Family History Brother(s) Family Medical History: No Reported History Mother Family Medical History: Cancer, Diabetes Mellitus, Hypertension Additional Family Medical History / Comment(s): Mother of throat cancer at the age of 63 yrs. She was a smoker. Father Family Medical History: Coronary Artery Disease (CAD), Hyperlipidemia, Hypertension Additional Family Medical History / Comment(s): Father is 70 yrs old. Medications and Allergies Home Medications Medication Instructions Recorded Confirmed Type Atorvastatin [Lipitor] 40 mg PO HS 09/14/15 08/26/17 History Cyclobenzaprine [Flexeril] 5 mg PO HS 09/14/15 08/26/17 History Magnesium Gluconate [Magonate] 1,000 mg PO AC-BRKFST 09/14/15 08/26/17 History Omeprazole [PriLOSEC] 20 mg PO DAILY 09/14/15 08/26/17 History Furosemide [Lasix] 40 mg PO BID 03/12/16 08/26/17 History Lidocaine 4% Cream [Lmx 4] 1 applic TOPICAL TUTHSA 03/12/16 08/26/17 History Insulin Glargine [Lantus] 80 unit SQ HS 04/18/16 08/26/17 History Prochlorperazine [Compazine] 10 mg PO BID PRN 05/14/16 08/26/17 History Insulin NPL/Insulin Lispro 20 unit SQ AC-TID 06/05/16 08/26/17 History [humaLOG MIX 75-25 VIAL] hydrALAZINE HCL [Apresoline] 100 mg PO TID #180 tab 06/10/16 08/26/17 Rx Triphrocap 1mg 1 cap PO DAILY 09/12/16 08/26/17 History Insulin NPL/Insulin Lispro See Protocol SQ AC-TID PRN 12/16/16 08/26/17 History [humaLOG MIX 75-25 VIAL] Metoprolol Tartrate [Lopressor] 25 mg PO DAILY 12/16/16 08/26/17 History Sevelamer [Renvela] 2,400 mg PO AC-TID 12/16/16 08/26/17 History Vitamin E 1,000 unit PO DAILY 12/16/16 08/26/17 History cloNIDine HCL 0.3 mg PO TID 12/16/16 08/26/17 History amLODIPine [Norvasc] 5 mg PO DAILY@1200 02/07/17 08/26/17 History rOPINIRole HCL [Requip] 0.5 mg PO HS 02/07/17 08/26/17 History Levocarnitine (with Sugar) 300 mg PO BID #118 ml 02/11/17 08/26/17 Rx [Levocarnitine 1 G/10 ml Oral Soln] B Complex W-C No.20/Folic Acid 1 mg PO DAILY 08/21/17 08/26/17 History [Renal Caps Softgel] Gabapentin [Neurontin] 100 mg PO TID 08/21/17 08/26/17 History Insulin NPL/Insulin Lispro 20 units SQ HS 08/21/17 08/26/17 History [humaLOG MIX 75-25 VIAL] Lactulose [Constulose] 10 gm PO TID PRN 08/21/17 08/26/17 History Sevelamer [Renvela] 800 mg PO AC-BID 08/21/17 08/26/17 History traMADol HCl [Ultram] 50 mg PO Q4H PRN 08/21/17 08/26/17 History Allergies Allergy/AdvReac Type Severity Reaction Status Date / Time ciprofloxacin [From Cipro] AdvReac AFFECTED Verified 08/21/17 17:15 EYESIGHT ciprofloxacin HCl AdvReac AFFECTED Verified 08/21/17 17:15 [From Cipro] EYESIGHT Iodinated Contrast- Oral and AdvReac RENAL Verified 08/21/17 17:15 IV Dye FAILURE Surgical - Exam Vital Signs Temp Pulse Resp BP Pulse Ox 97.6 F 72 14 160/78 100 08/26/17 08:14 08/26/17 08:14 08/26/17 08:14 08/26/17 08:14 08/26/17 08:14 - General well developed, no distress - Eyes PERRL - ENT normal pinna - Neck no masses - Respiratory normal expansion - Cardiovascular Rhythm: regular - Abdomen Abdomen: soft - Genitourinary normal external genitalia Results - Labs Abnormal Lab Results - Last 24 Hours (Table) 08/26/17 Range/Units 08:16 POC Glucose (mg/dL) 148 H (75-99) mg/dL Assessment and Plan Assessment: We'll perform screening colonoscopy.
[2017-08-26] MEDS ORDERED: LIDOCAINE 1% INJ 10MG/ML (20 ML MDV) ONE (08:31)
[2017-08-26] MEDS ORDERED: PROPOFOL 10 MG/ML 20 ML VIAL IV ONE (08:31)
--- NOTE | 2017-08-26 08:51 | P.OP ---
Date of Procedure: 08/26/17 Preoperative Diagnosis: Screening colonoscopy Postoperative Diagnosis: Colon polyps Procedure(s) Performed: Colonoscopy Anesthesia: MAC Surgeon: Garth Jain Pathology: other (Proximal rectal polyp, distal rectal polyp) Condition: stable Disposition: PACU Description of Procedure: The patient's placed on the endoscopy table in the lateral position. She received IV sedation. The digital rectal exam was performed which revealed no ebonized. The flexible colonoscope was then placed patient anus and passed throughout the entire colon. The ileocecal valve was visualized. The cecum, ascending and transverse colon appeared normal. The scope was brought back the descending; and this appeared normal. The scope was then brought back the rectum and the proximal rectum there was a polyp seen this was removed with the cold forcep. Scope summer back the distal rectum and another polyp was removed with a snare. Scope was withdrawn for patient.
[2017-08-26 09:01] LABS: Glucose,Whole Blood 141 mg/dL (75-99)
[2017-08-26 09:15] VITALS: RESP 18
[2017-08-26 09:17] VITALS: BP 137/69; PULSE 69
== END 2017-08-26 09:25 | disposition home or self-care (01) ==
LOC: ORWHC2ENDO 07:32
PROVIDERS: ATTEND Surgery
DX: Z12.11 Encounter for screening for malignant neoplasm of colon (principal); K62.1 Rectal polyp; K62.6 Ulcer of anus and rectum; Z87.19 Personal history of other diseases of the digestive system; E11.22 Type 2 diabetes mellitus with diabetic chronic kidney disease; I12.0 Hypertensive chronic kidney disease with stage 5 chronic kidney disease or end stage renal disease; N18.6 End stage renal disease; Z99.2 Dependence on renal dialysis; D50.0 Iron deficiency anemia secondary to blood loss (chronic); E78.5 Hyperlipidemia, unspecified; K76.9 Liver disease, unspecified; Z79.4 Long term (current) use of insulin; Z79.899 Other long term (current) drug therapy; Z82.49 Family history of ischemic heart disease and other diseases of the circulatory system; Z88.1 Allergy status to other antibiotic agents; Z91.041 Radiographic dye allergy status
CPT/HCPCS: 81025; 88305; 45380; 45385; J2001; J2704

== ENCOUNTER 2017-09-21 11:39 | Inpatient (IN) | payer OTHER ==
--- NOTE | 2017-09-21 11:52 | ED ---
General Adult HPI - General Chief complaint: Shortness of Breath Stated complaint: Diff Breathing, Weakness Time Seen by Provider: 09/21/17 11:49 Source: patient, RN notes reviewed, old records reviewed Mode of arrival: wheelchair Limitations: no limitations - History of Present Illness Initial comments: This is a 52-year-old female to the ER for evaluation today. She presented today for evaluation regards to shortness of breath, patient does have severe shortness of breath increased cough and congestion denies fever no chest pain. - Related Data Home Medications Medication Instructions Recorded Confirmed Atorvastatin [Lipitor] 40 mg PO HS 09/14/15 09/21/17 Cyclobenzaprine [Flexeril] 5 mg PO HS 09/14/15 09/21/17 Magnesium Gluconate [Magonate] 1,000 mg PO BID 09/14/15 09/21/17 Furosemide [Lasix] 40 mg PO BID 03/12/16 09/21/17 Insulin Glargine [Lantus] 80 unit SQ HS 04/18/16 09/21/17 Prochlorperazine [Compazine] 10 mg PO BID PRN 05/14/16 09/21/17 Insulin NPL/Insulin Lispro See Protocol SQ ACHS PRN 12/16/16 09/21/17 [humaLOG MIX 75-25 VIAL] Metoprolol Tartrate [Lopressor] 25 mg PO DAILY 12/16/16 09/21/17 Sevelamer [Renvela] 2,400 mg PO AC-TID 12/16/16 09/21/17 cloNIDine HCL 0.3 mg PO TID 12/16/16 09/21/17 amLODIPine [Norvasc] 5 mg PO DAILY@1200 02/07/17 09/21/17 rOPINIRole HCL [Requip] 1 mg PO TID 02/07/17 09/21/17 B Complex W-C No.20/Folic Acid 1 mg PO DAILY 08/21/17 09/21/17 [Renal Caps Softgel] Gabapentin [Neurontin] 100 mg PO TID 08/21/17 09/21/17 Insulin NPL/Insulin Lispro 20 units SQ ACHS 08/21/17 09/21/17 [humaLOG MIX 75-25 VIAL] Lactulose [Constulose] 10 gm PO TID PRN 08/21/17 09/21/17 Sevelamer [Renvela] 800 mg PO BID PRN 08/21/17 09/21/17 traMADol HCl [Ultram] 50 mg PO Q4H PRN 08/21/17 09/21/17 Cephalexin [Keflex] 250 mg PO BID 09/21/17 09/21/17 Erythromycin Base [Erythromycin] 1 applic RIGHT EYE BID 09/21/17 09/21/17 Lidocaine-Prilocaine Cream [Emla 1 applic TOPICAL DAILY PRN 09/21/17 09/21/17 Cream 2.5%/2.5%] Previous Rx's Medication Instructions Recorded hydrALAZINE HCL [Apresoline] 100 mg PO TID #180 tab 06/10/16 Levocarnitine (with Sugar) 300 mg PO BID #118 ml 02/11/17 [Levocarnitine 1 G/10 ml Oral Soln] Allergies Allergy/AdvReac Type Severity Reaction Status Date / Time ciprofloxacin [From Cipro] AdvReac AFFECTED Verified 09/21/17 12:37 EYESIGHT ciprofloxacin HCl AdvReac AFFECTED Verified 09/21/17 12:37 [From Cipro] EYESIGHT Iodinated Contrast- Oral and AdvReac RENAL Verified 09/21/17 12:37 IV Dye FAILURE Review of Systems ROS Statement: Those systems with pertinent positive or pertinent negative responses have been documented in the HPI. ROS Other: All systems not noted in ROS Statement are negative. Past Medical History Past Medical History: Blood Disorder, Diabetes Mellitus, Dialysis, Hyperlipidemia, Hypertension, Liver Disease, Pneumonia, Renal Disease Additional Past Medical History / Comment(s): hypertriglyceridemia-induced acute pancreatitis, THEN necrotizing pancreatitis. hemodialysis for acute kidney injury 2 months in 2009 after pancreatic OR, 11/2015 diagnosed w/ chronic kidney disease-hemodialysis //, IDDM type II, chronic anemia, occasional back pain, carter's palsy x2, past L leg fx. History of Any Multi-Drug Resistant Organisms: None Reported Past Surgical History: Orthopedic Surgery, Uterine Ablation Additional Past Surgical History / Comment(s): pancreatic resection at [facility] 2009, bone marrow biopsies X2-last one 05/19/16,. dialysis chest port x 2 with removals, Left arm shunt placement for dialysis - December 2015 Past Anesthesia/Blood Transfusion Reactions: No Reported Reaction Additional Past Anesthesia/Blood Transfusion Reaction / Comment(s): Pt has received blood transfusions without reaction. Past Psychological History: No Psychological Hx Reported Smoking Status: Never smoker Past Alcohol Use History: None Reported Past Drug Use History: None Reported - Past Family History Brother(s) Family Medical History: No Reported History Mother Family Medical History: Cancer, Diabetes Mellitus, Hypertension Additional Family Medical History / Comment(s): Mother of throat cancer at the age of 63 yrs. She was a smoker. Father Family Medical History: Coronary Artery Disease (CAD), Hyperlipidemia, Hypertension Additional Family Medical History / Comment(s): Father is 70 yrs old. General Exam Limitations: no limitations General appearance: alert, in no apparent distress Head exam: Present: atraumatic, normocephalic, normal inspection Eye exam: Present: normal appearance, PERRL, EOMI. Absent: scleral icterus, conjunctival injection, periorbital swelling ENT exam: Present: normal exam, mucous membranes moist Neck exam: Present: normal inspection. Absent: tenderness, meningismus, lymphadenopathy Respiratory exam: Present: respiratory distress, wheezes, accessory muscle use, decreased breath sounds, prolonged expiratory. Absent: rales, rhonchi, stridor Cardiovascular Exam: Present: normal rhythm, tachycardia, normal heart sounds. Absent: systolic murmur, diastolic murmur, rubs, gallop, clicks GI/Abdominal exam: Present: soft, normal bowel sounds. Absent: distended, tenderness, guarding, rebound, rigid Extremities exam: Present: normal inspection, full ROM, normal capillary refill. Absent: tenderness, pedal edema, joint swelling, calf tenderness Back exam: Present: normal inspection Neurological exam: Present: alert, oriented X3, CN II-XII intact Psychiatric exam: Present: normal affect, normal mood Skin exam: Present: warm, dry, intact, normal color. Absent: rash Course Vital Signs 09/21/17 09/21/17 09/21/17 11:43 12:04 12:13 Temperature 98.6 F Pulse Rate 107 H 103 H Respiratory 24 20 Rate Blood Pressure 239/104 O2 Sat by Pulse 87 L Oximetry 09/21/17 09/21/17 12:20 13:07 Temperature Pulse Rate 91 106 H Respiratory 20 Rate Blood Pressure 220/94 O2 Sat by Pulse 90 L Oximetry EKG Findings - EKG Comments: EKG Findings:: EKG shows sinus tachycardia rate 106, OH 160, QRS 90, QTc 456 Medical Decision Making - Medical Decision Making 52 female the ER for evaluation of cough and coughing of blood, shortness of breath, positive CHF with exacerbation. Patient has severe shortness of breath , positive pulmonary edema and is in hypertensive urgency, emergency with CHF - Lab Data Result diagrams: 09/21/17 12:05 09/21/17 12:05 Lab Results 09/21/17 09/21/17 09/21/17 Range/Units 12:05 12:05 12:05 WBC 3.4 L (3.8-10.6) k/uL RBC 2.17 L (3.80-5.40) m/uL Hgb 7.5 L (11.4-16.0) gm/dL Hct 22.2 L (34.0-46.0) % MCV 102.4 H (80.0-100.0) fL MCH 34.6 (25.0-35.0) pg MCHC 33.8 (31.0-37.0) g/dL RDW 17.2 H (11.5-15.5) % Plt Count 92 L (150-450) k/uL Neutrophils % 88 % Lymphocytes % 6 % Monocytes % 4 % Eosinophils % 1 % Basophils % 1 % Neutrophils # 3.0 (1.3-7.7) k/uL Lymphocytes # 0.2 L (1.0-4.8) k/uL Monocytes # 0.1 (0-1.0) k/uL Eosinophils # 0.0 (0-0.7) k/uL Basophils # 0.0 (0-0.2) k/uL Manual Slide Review Performed Polychromasia Present Poikilocytosis Slight Anisocytosis Slight Macrocytosis Moderate PT (9.0-12.0) sec INR (<1.2) APTT (22.0-30.0) sec Sodium 133 L (137-145) mmol/L Potassium 6.8 H* (3.5-5.1) mmol/L Chloride 89 L (98-107) mmol/L Carbon Dioxide 26 (22-30) mmol/L Anion Gap 18 mmol/L BUN 64 H (7-17) mg/dL Creatinine 7.51 H* (0.52-1.04) mg/dL Est GFR (CKD-EPI)AfAm 7 (>60 ml/min/1.73 sqM) Est GFR (CKD-EPI)NonAf 6 (>60 ml/min/1.73 sqM) Glucose 407 H (74-99) mg/dL Calcium 9.1 (8.4-10.2) mg/dL Magnesium 1.5 L (1.6-2.3) mg/dL Total Bilirubin 1.0 (0.2-1.3) mg/dL AST 28 (14-36) U/L ALT 37 (9-52) U/L Alkaline Phosphatase 83 (38-126) U/L Total Creatine Kinase 237 H (30-135) U/L CK-MB (CK-2) 3.1 H* (0.0-2.4) ng/mL CK-MB (CK-2) Rel Index 1.3 Troponin I 0.041 H* (0.000-0.034) ng/mL NT-Pro-B Natriuret Pep pg/mL Total Protein 7.0 (6.3-8.2) g/dL Albumin 4.5 (3.5-5.0) g/dL 09/21/17 09/21/17 Range/Units 12:05 12:05 WBC (3.8-10.6) k/uL RBC (3.80-5.40) m/uL Hgb (11.4-16.0) gm/dL Hct (34.0-46.0) % MCV (80.0-100.0) fL MCH (25.0-35.0) pg MCHC (31.0-37.0) g/dL RDW (11.5-15.5) % Plt Count (150-450) k/uL Neutrophils % % Lymphocytes % % Monocytes % % Eosinophils % % Basophils % % Neutrophils # (1.3-7.7) k/uL Lymphocytes # (1.0-4.8) k/uL Monocytes # (0-1.0) k/uL Eosinophils # (0-0.7) k/uL Basophils # (0-0.2) k/uL Manual Slide Review Polychromasia Poikilocytosis Anisocytosis Macrocytosis PT 9.9 (9.0-12.0) sec INR 1.0 (<1.2) APTT 22.3 (22.0-30.0) sec Sodium (137-145) mmol/L Potassium (3.5-5.1) mmol/L Chloride (98-107) mmol/L Carbon Dioxide (22-30) mmol/L Anion Gap mmol/L BUN (7-17) mg/dL Creatinine (0.52-1.04) mg/dL Est GFR (CKD-EPI)AfAm (>60 ml/min/1.73 sqM) Est GFR (CKD-EPI)NonAf (>60 ml/min/1.73 sqM) Glucose (74-99) mg/dL Calcium (8.4-10.2) mg/dL Magnesium (1.6-2.3) mg/dL Total Bilirubin (0.2-1.3) mg/dL AST (14-36) U/L ALT (9-52) U/L Alkaline Phosphatase (38-126) U/L Total Creatine Kinase (30-135) U/L CK-MB (CK-2) (0.0-2.4) ng/mL CK-MB (CK-2) Rel Index Troponin I (0.000-0.034) ng/mL NT-Pro-B Natriuret Pep 5220 pg/mL Total Protein (6.3-8.2) g/dL Albumin (3.5-5.0) g/dL - Radiology Data Radiology results: report reviewed (Chest x-ray is positive for CHF), image reviewed Disposition Clinical Impression: Systolic congestive heart failure, Acute renal failure, Pulmonary edema, ESRD ( end stage renal disease) on dialysis, Hyperkalemia Disposition: ADMITTED IP TO THIS HOSP Condition: Serious Referrals: David Bragg MD [Primary Care Provider] - 1-2 days
[2017-09-21] MEDS ORDERED: ENALAPRILAT 1.25 MG/ML 1 ML VIAL IVP STA ×2 (11:53→13:10)
[2017-09-21] MEDS ORDERED: IPRATROPIUM-ALBUTEROL 3 ML NEB INHALATION STA (11:53)
[2017-09-21 12:16] LABS: Anisocytosis Slight; Basophils % (A) 1 %; Eosinophils % (A) 1 %; HCT 22.2 % (34.0-46.0); HGB 7.5 gm/dL (11.4-16.0); Lymphocytes # (A) 0.2 k/uL (1.0-4.8); Lymphocytes % (A) 6 %; MCH 34.6 pg (25.0-35.0); MCHC 33.8 g/dL (31.0-37.0); MCV 102.4 fL (80.0-100.0); Macrocytosis Moderate; Monocytes # (A) 0.1 k/uL (0-1.0); Monocytes % (A) 4 %; Neutrophils % (A) 88 %; Poikilocytosis Slight; RBC 2.17 m/uL (3.80-5.40); RDW 17.2 % (11.5-15.5); WBC 3.4 k/uL (3.8-10.6)
[2017-09-21 12:27] LABS: Partial Thromboplastin Time 22.3 sec (22.0-30.0); Prothrombin Time 9.9 sec (9.0-12.0)
[2017-09-21 12:31] LABS: Albumin 4.5 g/dL (3.5-5.0); Calcium 9.1 mg/dL (8.4-10.2); Magnesium 1.5 mg/dL (1.6-2.3)
[2017-09-21 12:34] LABS: Potassium 6.8 mmol/L (3.5-5.1)
[2017-09-21 12:55] LABS: Creatine Kinase MB 3.1 ng/mL (0.0-2.4); Troponin I 0.041 ng/mL (0.000-0.034)
[2017-09-21 13:00] LABS: Platelet Count 92 k/uL (150-450); Polychromasia Present
--- NOTE | 2017-09-21 13:03 | XR ---
EXAMINATION TYPE: XR chest 1V portable DATE OF EXAM: 09/21/2017 COMPARISON: 02/16/2017 HISTORY: Shortness of breath FINDINGS: There are bilateral pleural effusions with cardiomegaly and bibasilar infiltrate. There is a diffuse interstitial pattern. Cardiomegaly may represent cardiomyopathy or pericardial effusion. IMPRESSION: 1. Correlate for CHF otherwise consider pneumonia.
[2017-09-21] MEDS ORDERED: HYDROcodone/APAP 5-325MG 1 EACH TAB PO STA (14:08)
[2017-09-21] MEDS ORDERED: hydrALAZINE HCL 50 MG TAB PO STA (15:02)
[2017-09-21] MEDS ORDERED: cloNIDine HCL 0.1 MG TAB PO STA (15:03)
[2017-09-21] MEDS ORDERED: amLODIPine 5 MG TAB PO STA (15:07)
[2017-09-21 17:44] LABS: Glucose,Whole Blood 350 mg/dL (75-99)
[2017-09-21] MEDS: FUROSEMIDE 10 MG/ML 4 ML VIAL IV SCH (18:01)
[2017-09-21] MEDS: NITROGLYCERIN OINT 1 INCH/GM PACKET TOPICAL SCH ×2 (18:01→23:35)
[2017-09-21] MEDS ORDERED: LACTULOSE 20 GM/30 ML CUP PO PRN (18:15)
[2017-09-21] MEDS: traMADol 50 MG TAB PO PRN ×2 (20:18→23:32)
[2017-09-21] MEDS: CYCLOBENZAPRINE 5 MG TAB PO SCH (20:19)
[2017-09-21] MEDS: CEPHALEXIN 250 MG CAP PO SCH (20:19)
[2017-09-21] MEDS: hydrALAZINE HCL 50 MG TAB PO SCH (20:19)
[2017-09-21] MEDS: ATORVASTATIN 40 MG TAB PO SCH (20:19)
[2017-09-21] MEDS: cloNIDine HCL 0.1 MG TAB PO SCH (20:20)
[2017-09-21] MEDS: GABAPENTIN 100 MG CAP PO SCH (20:20)
[2017-09-21] MEDS: MAGNESIUM OXIDE 400 MG TAB PO SCH (20:20)
[2017-09-21 20:49] LABS: Glucose,Whole Blood 298 mg/dL (75-99)
[2017-09-21] MEDS: ERYTHROMYCIN 5 MG/GM OPHTH OINT 3.5 GM TUBE RIGHT EYE SCH (21:56)
[2017-09-21] MEDS: INSULIN DETEMIR 100 UNIT/ML 10 ML VIAL SQ SCH (21:56)
[2017-09-21] MEDS: INSULIN ASPART 100 UNIT/ML 1 ML 10 ML VIAL SQ SCH (21:56)
[2017-09-21] MEDS: hydrALAZINE HCL 20 MG/ML 1 ML VIAL IVP PRN (21:57)
[2017-09-21] MEDS: HYDROcodone/APAP 5-325MG 1 EACH TAB PO PRN (21:57)
[2017-09-21] MEDS: levOCARNitine (WITH SUGAR) 100 MG/ML BOTTLE PO SCH (22:00)
[2017-09-21] MEDS: LIDOCAINE-PRILOCAINE 2.5-2.5% CREAM 5 GM TUBE TOPICAL PRN (22:17)
[2017-09-22 02:03] LABS: Glucose,Whole Blood 123 mg/dL (75-99)
[2017-09-22] MEDS: HYDROcodone/APAP 5-325MG 1 EACH TAB PO PRN ×3 (03:13→21:26)
[2017-09-22] MEDS: traMADol 50 MG TAB PO PRN (06:04)
[2017-09-22] MEDS: SEVELAMER 800 MG TAB PO SCH ×3 (06:05→17:03)
[2017-09-22] MEDS: FUROSEMIDE 10 MG/ML 4 ML VIAL IV SCH ×2 (06:05→17:04)
[2017-09-22] MEDS: INSULIN ASPART 100 UNIT/ML 1 ML 10 ML VIAL SQ SCH ×4 (06:20→21:22)
[2017-09-22 06:21] LABS: Glucose,Whole Blood 168 mg/dL (75-99)
[2017-09-22 06:49] LABS: Anisocytosis Slight; Basophils % (A) 0 %; Eosinophils % (A) 1 %; Lymphocytes # (A) 0.3 k/uL (1.0-4.8); Lymphocytes % (A) 8 %; MCH 34.8 pg (25.0-35.0); MCHC 33.1 g/dL (31.0-37.0); MCV 105.2 fL (80.0-100.0); Macrocytosis Moderate; Mean Platelet Volume 7.4; Monocytes # (A) 0.1 k/uL (0-1.0); Monocytes % (A) 4 %; Neutrophils # (A) 3.1 k/uL (1.3-7.7); Neutrophils % (A) 87 %; Platelet Count 112 k/uL (150-450); Poikilocytosis Slight; RBC 1.83 m/uL (3.80-5.40); RDW 18.1 % (11.5-15.5); WBC 3.6 k/uL (3.8-10.6)
[2017-09-22 07:00] LABS: Albumin 3.9 g/dL (3.5-5.0); Calcium 8.9 mg/dL (8.4-10.2); Potassium 4.6 mmol/L (3.5-5.1); Total Bilirubin 1.2 mg/dL (0.2-1.3); Total Protein 6.2 g/dL (6.3-8.2)
[2017-09-22 07:01] LABS: HCT 19.3 % (34.0-46.0); HGB 6.4 gm/dL (11.4-16.0)
[2017-09-22] MEDS ORDERED: FUROSEMIDE 10 MG/ML 4 ML VIAL IV PRN (07:04)
--- NOTE | 2017-09-22 08:16 | P.CRDCN ---
History of Present Illness Consult date: 09/22/17 Requesting physician: David Bragg Consult reason: hypertension Chief complaint: Shortness of breath and generalized aches and pains History of present illness: This is a 52-year-old female with known history of chronic kidney disease going through the process to be put on the transplant list at [place], on hemodialysis, diabetes, hypertension, hyperlipidemia, anemia, who presented to the hospital with symptoms of bilateral leg aching, generalized body aches, and shortness of breath. She states that she received a call at home on Thursday that her hemoglobin was low, she called the dialysis center yesterday to tell them how she was feeling, they stated that the repeat hemoglobin was even lower and that she should come to the emergency room for further evaluation. Blood pressure on arrival here to 39/104, heart rate 107, 87% on room air. Blood pressure this morning 140/70, heart rate 120, temperature 98.5 , she's 96% on 4 L of oxygen. EKG on arrival here showed a sinus tachycardia with incomplete right bundle branch block pattern. Chest x-ray shows congestive heart failure. White blood cell count 3.4 and admission, 3.6 morning. Hemoglobin 7.5 on admission, 6.4 this morning, platelet count 112. Sodium on admission 133, potassium 6.8, BUN 64, creatinine 7.5. This morning's labs sodium 138, potassium 4.6, BUN 46, creatinine 5.8. Patient did undergo dialysis last evening. The glucose on arrival 407. Magnesium 1.5. BNP level 5220, troponins 0.041, 0.042, 0.064. At the time of my examination this morning , patient states her breathing is significantly improved, denies any aches and pains this morning. Patient's home medications include lidocaine cream, erythromycin, Keflex, Requip, Ultram, Compazine, lactulose, Flexeril, Renvela, Lopressor 25 mg daily, Lasix 40 mg by mouth twice a day, B vitamin, Norvasc 5 mg daily, Apresoline 100 mg 3 times a day, clonidine 0.3 3 times a day, Lipitor 40 and insulin. was started on Norvasc in the emergency room, given an additional dose of clonidine, hydralazine, and IV Vasotec, initiated on IV Lasix. Past Medical History Past Medical History: Blood Disorder, Heart Failure, Diabetes Mellitus, Dialysis , Hyperlipidemia, Hypertension, Liver Disease, Pneumonia, Renal Disease Additional Past Medical History / Comment(s): Current R eye infection, bilateral cataracts, bilateral retinal hemorrhages, hypertriglyceridemia- induced acute pancreatitis, THEN necrotizing pancreatitis. hemodialysis for acute kidney injury 2 months in 2009 after pancreatic OR, 11/2015 diagnosed w/ chronic kidney disease-hemodialysis //, IDDM type II, pt states she has dry heaves day after dialysis, chronic anemia, body cramping when blood sugars are high, occasional low back pain, carter's palsy x2, past L leg fx. History of Any Multi-Drug Resistant Organisms: None Reported Past Surgical History: Orthopedic Surgery, Uterine Ablation Additional Past Surgical History / Comment(s): 08/26/17 colonoscopy with polypectomy/bx, pancreatic resection at [facility] 2009, bone marrow biopsies X2-last one 05/19/16,. dialysis chest port x 2 with removals, Left arm shunt placement for dialysis - December 2015 and a revision done with shunt/ Past Anesthesia/Blood Transfusion Reactions: No Reported Reaction Additional Past Anesthesia/Blood Transfusion Reaction / Comment(s): Pt has received blood transfusions without reaction. Smoking Status: Never smoker - Past Family History Brother(s) Family Medical History: No Reported History Mother Family Medical History: Cancer, Diabetes Mellitus, Hypertension Additional Family Medical History / Comment(s): Mother of throat cancer at the age of 63 yrs. She was a smoker. Father Family Medical History: Coronary Artery Disease (CAD), Hyperlipidemia, Hypertension Additional Family Medical History / Comment(s): Father is 70 yrs old. Medications and Allergies Home Medications Medication Instructions Recorded Confirmed Type Atorvastatin [Lipitor] 40 mg PO HS 09/14/15 09/21/17 History Cyclobenzaprine [Flexeril] 5 mg PO HS 09/14/15 09/21/17 History Magnesium Gluconate [Magonate] 1,000 mg PO BID 09/14/15 09/21/17 History Furosemide [Lasix] 40 mg PO BID 03/12/16 09/21/17 History Insulin Glargine [Lantus] 80 unit SQ HS 04/18/16 09/21/17 History Prochlorperazine [Compazine] 10 mg PO BID PRN 05/14/16 09/21/17 History hydrALAZINE HCL [Apresoline] 100 mg PO TID #180 tab 06/10/16 09/21/17 Rx Insulin NPL/Insulin Lispro See Protocol SQ ACHS PRN 12/16/16 09/21/17 History [humaLOG MIX 75-25 VIAL] Metoprolol Tartrate [Lopressor] 25 mg PO DAILY 12/16/16 09/21/17 History Sevelamer [Renvela] 2,400 mg PO AC-TID 12/16/16 09/21/17 History cloNIDine HCL 0.3 mg PO TID 12/16/16 09/21/17 History amLODIPine [Norvasc] 5 mg PO DAILY@1200 02/07/17 09/21/17 History rOPINIRole HCL [Requip] 1 mg PO TID 02/07/17 09/21/17 History Levocarnitine (with Sugar) 300 mg PO BID #118 ml 02/11/17 09/21/17 Rx [Levocarnitine 1 G/10 ml Oral Soln] B Complex W-C No.20/Folic Acid 1 mg PO DAILY 08/21/17 09/21/17 History [Renal Caps Softgel] Gabapentin [Neurontin] 100 mg PO TID 08/21/17 09/21/17 History Insulin NPL/Insulin Lispro 20 units SQ ACHS 08/21/17 09/21/17 History [humaLOG MIX 75-25 VIAL] Lactulose [Constulose] 10 gm PO TID PRN 08/21/17 09/21/17 History Sevelamer [Renvela] 800 mg PO BID PRN 08/21/17 09/21/17 History traMADol HCl [Ultram] 50 mg PO Q4H PRN 08/21/17 09/21/17 History Cephalexin [Keflex] 250 mg PO BID 09/21/17 09/21/17 History Erythromycin Base [Erythromycin] 1 applic RIGHT EYE BID 09/21/17 09/21/17 History Lidocaine-Prilocaine Cream [Emla 1 applic TOPICAL DAILY PRN 09/21/17 09/21/17 History Cream 2.5%/2.5%] Allergies Allergy/AdvReac Type Severity Reaction Status Date / Time ciprofloxacin [From Cipro] AdvReac AFFECTED Verified 05/14/18 12:37 EYESIGHT ciprofloxacin HCl AdvReac AFFECTED Verified 09/21/17 12:37 [From Cipro] EYESIGHT Iodinated Contrast- Oral and AdvReac RENAL Verified 09/21/17 12:37 IV Dye FAILURE Physical Exam Vitals: Vital Signs Temp Pulse Pulse Resp BP BP Pulse Ox 09/22/17 06:01 120 H 17 140/75 96 09/22/17 03:45 98.5 F 117 H 16 131/66 99 09/22/17 01:32 134/77 09/22/17 00:46 175/98 09/21/17 23:30 97.1 F L 130 H 17 203/95 91 L 09/21/17 21:00 225/97 09/21/17 20:00 97.1 F L 111 H 18 222/99 93 L 09/21/17 18:39 97.8 F 103 H 18 186/79 94 L 09/21/17 17:47 98.6 F 105 H 18 171/71 97 09/21/17 17:23 105 H 18 171/71 97 09/21/17 17:16 105 H 18 171/71 97 09/21/17 15:22 100 18 204/86 94 L 09/21/17 14:19 105 H 18 215/95 94 L 09/21/17 14:01 180/77 09/21/17 13:07 106 H 20 220/94 90 L 09/21/17 12:20 91 09/21/17 12:13 20 09/21/17 12:04 103 H 09/21/17 11:43 98.6 F 107 H 24 239/104 87 L Intake and Output 09/21/17 09/22/17 09/22/17 22:59 06:59 14:59 Output Total 200 400 Balance -200 -400 Output: Urine 200 400 Other: Voiding Method Bedside Commode Bedside Commode Weight 78.6 kg PHYSICAL EXAMINATION: HEENT: Head is atraumatic, normocephalic. Pupils equal, round. Neck is supple. There is no elevated jugular venous pressure. HEART EXAMINATION: Heart S1, S2 normal. No murmur or gallop heard. CHEST EXAMINATION: Lungs are clear with mild diminished air entry to the bases. No chest wall tenderness is noted on palpation or with deep breathing. ABDOMEN: Soft, nontender. Bowel sounds are heard. No organomegaly noted. EXTREMITIES: 2+ peripheral pulses with no evidence of peripheral edema and no calf tenderness noted. NEUROLOGIC patient is awake, alert and oriented -3. . Results 09/22/17 06:06 09/22/17 06:06 Cardiac Enzymes 09/21/17 09/21/17 09/21/17 Range/Units 12:05 12:05 17:59 AST 28 (14-36) U/L CK-MB (CK-2) 3.1 H* (0.0-2.4) ng/mL Troponin I 0.041 H* 0.042 H* (0.000-0.034) ng/mL 09/21/17 09/22/17 Range/Units 23:58 06:06 AST 20 (14-36) U/L CK-MB (CK-2) (0.0-2.4) ng/mL Troponin I 0.064 H* (0.000-0.034) ng/mL Coagulation 09/21/17 Range/Units 12:05 PT 9.9 (9.0-12.0) sec APTT 22.3 (22.0-30.0) sec CBC 09/21/17 09/22/17 Range/Units 12:05 06:06 WBC 3.4 L 3.6 L (3.8-10.6) k/uL RBC 2.17 L 1.83 L (3.80-5.40) m/uL Hgb 7.5 L 6.4 L* (11.4-16.0) gm/dL Hct 22.2 L 19.3 L* (34.0-46.0) % Plt Count 92 L 112 L (150-450) k/uL Comprehensive Metabolic Panel 09/21/17 09/22/17 Range/Units 12:05 06:06 Sodium 133 L 138 (137-145) mmol/L Potassium 6.8 H* 4.6 (3.5-5.1) mmol/L Chloride 89 L 94 L (98-107) mmol/L Carbon Dioxide 26 31 H (22-30) mmol/L BUN 64 H 46 H (7-17) mg/dL Creatinine 7.51 H* 5.86 H* (0.52-1.04) mg/dL Glucose 407 H 134 H (74-99) mg/dL Calcium 9.1 8.9 (8.4-10.2) mg/dL AST 28 20 (14-36) U/L ALT 37 31 (9-52) U/L Alkaline Phosphatase 83 66 (38-126) U/L Total Protein 7.0 6.2 L (6.3-8.2) g/dL Albumin 4.5 3.9 (3.5-5.0) g/dL Current Medications Generic Name Dose Route Start Last Admin Trade Name Freq PRN Reason Stop Dose Admin Hydrocodone Bitart/Acetaminophen 1 each 09/21/17 21:22 09/22/17 03:13 [place] 5-325 PO 1 each Q4HR PRN Administration Pain Amlodipine Besylate 5 mg 09/22/17 12:00 Norvasc PO DAILY@1200 ANNI Atorvastatin Calcium 40 mg 09/21/17 21:00 09/21/17 20:19 Lipitor PO 40 mg HS ANNI Administration Cephalexin 250 mg 09/21/17 21:00 09/21/17 20:19 Keflex PO 250 mg BID ANNI Administration Clonidine 0.3 mg 09/21/17 22:00 09/21/17 20:20 Catapres PO 0.3 mg TID ANNI Administration Cyclobenzaprine HCl 5 mg 09/21/17 21:00 09/21/17 20:19 Flexeril PO 5 mg HS ANNI Administration Erythromycin 1 applic 09/21/17 21:00 09/21/17 21:56 Romycin Ophth Oint RIGHT EYE 1 applic BID ANNI Administration Furosemide 40 mg 09/21/17 18:00 09/22/17 06:05 Lasix IV 40 mg Q12H ANNI Administration Furosemide 40 mg 09/22/17 07:04 Lasix IV 10/22/17 23:00 ONCE PRN Between Blood Transfusions Gabapentin 100 mg 09/21/17 22:00 09/21/17 20:20 Neurontin PO 100 mg TID ANNI Administration Hydralazine HCl 100 mg 09/21/17 22:00 09/21/17 20:19 Apresoline PO 100 mg TID ANNI Administration Hydralazine HCl 10 mg 09/21/17 21:21 09/21/17 21:57 Apresoline IVP 10 mg Q4HR PRN Administration Blood Pressure - High Insulin Aspart 0 unit 09/21/17 21:00 09/22/17 06:20 Novolog SQ Not Given ACHS ANNI Protocol Insulin Detemir 80 unit 09/21/17 21:00 09/21/17 21:56 Levemir SQ 80 unit HS ANNI Administration Lactulose 10 gm 09/21/17 18:15 Cephulac PO TID PRN Constipation Levocarnitine 300 mg 09/21/17 21:00 09/21/17 22:00 Carnitor Oral Soln PO 300 mg BID ANNI Administration Lidocaine/Prilocaine 1 applic 09/21/17 18:15 09/21/17 22:17 Emla Cream 2.5%/2.5% TOPICAL 1 applic DAILY PRN Administration DIALYSIS SITE Magnesium Oxide 400 mg 09/21/17 21:00 09/21/17 20:20 Mag-Ox PO 400 mg BID [facility] Administration Metoprolol Tartrate 25 mg 09/22/17 09:00 Lopressor PO DAILY [facility] Multivit/Ca Carb/B Cmplx/FA/Prenat 1 each 09/22/17 12:00 Nephrocaps PO 1200 ANNI Nitroglycerin 1 inch 09/21/17 18:00 09/21/17 23:35 Nitro-Bid Oint TOPICAL 1 inch QID [facility] Administration Prochlorperazine Maleate 10 mg 09/21/17 18:15 Compazine PO BID PRN Nausea Ropinirole HCl 1 mg 09/21/17 22:00 09/21/17 20:19 Requip PO 1 mg TID ANNI Administration Sevelamer Carbonate 2,400 mg 09/22/17 07:30 09/22/17 06:05 Renvela PO 2,400 mg AC-TID [facility] Administration Tramadol HCl 50 mg 09/21/17 18:15 09/22/17 06:04 Ultram PO 50 mg Q4H PRN Administration Pain Intake and Output 09/21/17 09/22/17 09/22/17 22:59 06:59 14:59 Output Total 200 400 Balance -200 -400 Output: Urine 200 400 Other: Voiding Method Bedside Commode Bedside Commode Weight 78.6 kg 09/22/17 06:06 09/22/17 06:06 EKG Interpretations (text) EKG shows a sinus tachycardia Assessment and Plan Plan: Assessment and plan #1 symptoms of acute dyspnea with acute fluid overload in a patient with preserved systolic function, consistent with diastolic dysfunction related to hypertension. #2 hypertensive urgency #3 end-stage renal disease on hemodialysis, awaiting to be put on the transplant list #4 hypertension #5 hyperlipidemia #6 diabetes, uncontrolled #7 history of pancreatitis #8 Anemia with hemoglobin this morning is 6.4 #9 abnormal troponins, likely secondary to abnormal renal function Plan Patient did undergo an echocardiogram with Doppler study in January 2015 that revealed an ejection fraction of 55-60%, we will repeat an echocardiogram with Doppler study this admission. We'll continue current dose of IV Lasix. Continue current antihypertensives. Further recommendations to follow. DNP note has been reviewed, I agree with a documented findings and plan of care. Patient was seen and examined.
[2017-09-22] MEDS: GABAPENTIN 100 MG CAP PO SCH ×3 (09:00→19:49)
[2017-09-22] MEDS: ERYTHROMYCIN 5 MG/GM OPHTH OINT 3.5 GM TUBE RIGHT EYE SCH ×2 (09:00→19:48)
[2017-09-22] MEDS: CEPHALEXIN 250 MG CAP PO SCH (09:00)
[2017-09-22] MEDS: hydrALAZINE HCL 50 MG TAB PO SCH ×3 (09:00→19:49)
[2017-09-22] MEDS: cloNIDine HCL 0.1 MG TAB PO SCH ×3 (09:00→19:48)
[2017-09-22] MEDS: METOPROLOL TARTRATE 25 MG TAB PO SCH (09:01)
[2017-09-22] MEDS: levOCARNitine (WITH SUGAR) 100 MG/ML BOTTLE PO SCH ×2 (09:01→19:48)
[2017-09-22] MEDS: NITROGLYCERIN OINT 1 INCH/GM PACKET TOPICAL SCH ×3 (09:01→17:05)
[2017-09-22] MEDS: MAGNESIUM OXIDE 400 MG TAB PO SCH ×2 (09:01→19:48)
[2017-09-22] MEDS: MAGNESIUM SULFATE-D5W PMX 1 GM in DEXTROSE/WATER 1 100ML.BAG IVPB SCH ×2 (11:24→12:47)
[2017-09-22 11:43] LABS: Glucose,Whole Blood 219 mg/dL (75-99)
[2017-09-22 12:05] LABS: Hepatitis B Core IgM Non-Reactive (Non-Reactive); Hepatitis B Surface AB- Quant 3.5 mIU/mL
--- NOTE | 2017-09-22 12:45 | ECHOF ---
Referral Reason:chf MEASUREMENTS -------- HEIGHT: 160.0 cm WEIGHT: 78.5 kg BP: 140/75 RVIDd: 3.6 cm (< 3.3) IVSd: 1.5 cm (0.6 - 1.1) LVIDd: 4.7 cm (3.9 - 5.3) LVPWd: 1.6 cm (0.6 - 1.1) IVSs: 1.7 cm LVIDs: 3.1 cm LVPWs: 2.3 cm LA Diam: 3.5 cm (2.7 - 3.8) LAESV Index (A-L): 37.46 ml/m Ao Diam: 3.4 cm (2.0 - 3.7) AV Cusp: 1.8 cm (1.5 - 2.6) MV EXCURSION: 17.354 mm (> 18.000) MV EF SLOPE: 134 mm/s (70 - 150) EPSS: 0.5 cm AV maxP.44 mmHg AV meanP.13 mmHg RAP: 5.00 mmHg RVSP: 48.77 mmHg FINDINGS -------- Sinus rhythm. Resting tachycardia (HR>100bpm). This was a technically good study. The left ventricular size is normal. There is moderate concentric left ventricular hypertrophy. O verall left ventricular systolic function is normal with, an EF between 60 - 65 %. The right ventricle is mildly enlarged. LA is moderately dilated 34-39 ml/m2 The right atrium is normal in size. The aortic valve is trileaflet and appears structurally normal. Trace to mild aortic regurgitation. Peak/mean gradient across the Aortic Valve is 14.44mmHg / 8.13mmHg. Moderate mitral annular calcification present. Mild mitral regurgitation is present. Mild tricuspid regurgitation present. There is moderate pulmonary hypertension. The right ventric ular systolic pressure, as measured by Doppler, is 48.77mmHg. There is no pulmonic regurgitation present. The aortic root size is normal. Normal inferior vena cava with normal inspiratory collapse consistent with estimated right atrial pre ssure of 5 mmHg. The inferior vena cava is mildly dilated. There is a moderate, generalized pericardial effusion present. CONCLUSIONS -------- 1. Sinus rhythm. 2. Resting tachycardia (HR>100bpm). 3. This was a technically good study. 4. The left ventricular size is normal. 5. There is moderate concentric left ventricular hypertrophy. 6. Overall left ventricular systolic function is normal with, an EF between 60 - 65 %. 7. The right ventricle is mildly enlarged. 8. LA is moderately dilated 34-39 ml/m2 9. Trace to mild aortic regurgitation. 10. Peak/mean gradient across the Aortic Valve is 14.44mmHg / 8.13mmHg. 11. Moderate mitral annular calcification present. 12. Mild mitral regurgitation is present. 13. Mild tricuspid regurgitation present. 14. There is moderate pulmonary hypertension. 15. There is no pulmonic regurgitation present. 16. The aortic root size is normal. 17. Normal inferior vena cava with normal inspiratory collapse consistent with estimated right atrial pressure of 5 mmHg. 18. The inferior vena cava is mildly dilated. DIALYSIS BIOMED TECHNICIAN: Shama Contreras RDCS
[2017-09-22] MEDS: amLODIPine 5 MG TAB PO SCH (12:47)
[2017-09-22] MEDS: FOLIC ACID-VIT B COMPLEX-VIT C 1 CAP PO SCH (12:47)
[2017-09-22] MEDS ORDERED: PANTOPRAZOLE SODIUM 40 MG GRANULE PKT PO STA (13:07)
[2017-09-22 14:11] LABS: Hemoglobin A1C 5.5 % (4.0-6.0)
[2017-09-22 14:16] VITALS: BMI 30.7
[2017-09-22] MEDS ORDERED: PANTOPRAZOLE 40 MG TABLET PO STA (14:21)
[2017-09-22] MEDS: LIDOCAINE-PRILOCAINE 2.5-2.5% CREAM 5 GM TUBE TOPICAL PRN (14:24)
[2017-09-22 16:48] LABS: Glucose,Whole Blood 229 mg/dL (75-99)
--- NOTE | 2017-09-22 17:40 | CONS ---
CONSULTATION REASON FOR CONSULT: End-stage renal disease. HISTORY OF PRESENT ILLNESS: The patient is a 52-year-old female with end-stage renal disease, on hemodialysis on a Thursday, , Thursday schedule at [facility]. The patient was admitted to the hospital with complaints of shortness of breath. She denied any fever or chills. The patient did have cough. No abdominal pain, nausea or vomiting. Her chest x-ray showed evidence of CHF. The patient was dialyzed late last night. We had close to about 2 L of fluid removed. She will be dialyzed again later today. PAST MEDICAL HISTORY: 1. End-stage renal disease. 2. Hyperlipidemia. 3. Hypertension. 4. Type 2 diabetes. 5. Chronic liver disease. 6. History of pancreatitis. 7. History of Hoffman's palsy. 8. Anemia of chronic disease. PAST SURGICAL HISTORY: 1. Pancreatic resection at [facility]. 2. Bone marrow biopsy for workup for anemia. 3. Left arm AV fistula. SOCIAL HISTORY: Negative for smoking, drug abuse or alcohol abuse. HOME MEDICATIONS: 1. Keflex. 2. Renvela. 3. Neurontin. 4. Requip. 5. Lipitor. 6. Flexeril. 7. Lasix. 8. Insulin. 9. Compazine. 10.Lopressor. 11.Clonidine. 12.Norvasc. ALLERGIES: CIPRO and IV DYE. PHYSICAL EXAMINATION: Patient is currently comfortable, awake. She is not in any acute distress. Blood pressure is 132/70, heart rate 109 per minute. Patient is afebrile. EXAMINATION OF THE HEART: S1, S2. EXAMINATION OF LUNGS: Bilateral breath sounds are heard. Minimal basal crackles are heard bilaterally. ABDOMEN: Soft, non-tender. Examination of lower extremities shows no trace edema bilaterally. [employer] exam is grossly intact. Left arm AV fistula is intact in the upper arm. LABS: Sodium 138, potassium 4.6, hemoglobin 6.4 g/dL. ASSESSMENT: 1. End-stage renal disease, on hemodialysis on a Thursday, , Thursday schedule via left arm AV fistula. Patient will be dialyzed today again. She did have a treatment late last night for fluid overload. 2. Congestive heart failure/fluid overload, currently improved. We will try for about 2 L again today. Patient's will be adjusted as outpatient. 3. Severe anemia. Patient has been evaluated by Hematology as outpatient and has had 4 marrow biopsies as well. I will check her stool for occult blood. Patient denies any gross GI bleed. 4. Hyperlipidemia. 5. Type 2 diabetes. 6. Hypertension, currently controlled. 7. Chronic kidney disease mineral bone disorder, maintained on Renvela. PLAN: Repeat hemodialysis today and transfuse packed RBCs. Follow up with Hematology as outpatient. Check stool for occult blood. MMODL / IJN: [id number] /
[2017-09-22] MEDS: ATORVASTATIN 40 MG TAB PO SCH (19:47)
[2017-09-22] MEDS: CYCLOBENZAPRINE 5 MG TAB PO SCH (19:49)
[2017-09-22 21:01] LABS: Glucose,Whole Blood 180 mg/dL (75-99)
[2017-09-22] MEDS: INSULIN DETEMIR 100 UNIT/ML 10 ML VIAL SQ SCH (21:26)
--- NOTE | 2017-09-22 22:13 | HP ---
HISTORY AND PHYSICAL CHIEF COMPLAINT: This is a white female with hypertension acceleration, admitted to the hospital with fluid overload and hypertension acceleration. She had shortness of breath, generalized aches and pains with chronic kidney disease. She is on the transplant list at [facility] with diabetes mellitus, hypertension, dyslipidemia, anemia. She came in with shortness of breath, generalized body aches. She was told her hemoglobin was low. She was sent to the hospital. Her vital signs were reviewed. Her hemoglobin dropped to 6.5, at which time she was given a couple units of blood today. She is going to get dialysis. BNP is 5220. Troponins were reviewed, with elevation. Home medicines were reviewed. Hypertension acceleration treated with IV hydralazine and IV Vasotec, IV labetalol. She has got a right eye infection, bilateral cataracts, hypertriglyceridemia, pancreatitis renal injury secondary to pancreatitis, Hoffman's palsy, TIA, insulin-dependent diabetes mellitus, chronic anemia, Hoffman's palsy x2, history of left leg fracture, orthopedic surgery, uterine ablation. She has had colonoscopy with polypectomy, bone marrow biopsies x2. FAMILY HISTORY: Brothers negative. Mother with cancer, diabetes mellitus, hypertension. Mother of throat cancer. Father with coronary artery disease, dyslipidemia, hypertension. MEDICATIONS: 1. Lipitor. 2. Flexeril. 3. Lasix. 4. Lantus. 5. Compazine. 6. Apresoline. 7. Humalog 75/25. 8. Lopressor. 9. Renvela. 10.Clonidine. 11.Norvasc. 12.Requip. 13.Humalog Mix. 14.Tramadol. 15.Keflex. 16.Erythromycin. 17.Emla. ALLERGIES: CIPRO. PHYSICAL EXAMINATION: Temperature is 97 to 98, pulse 111 to 130, respiratory rate 16 to 18, blood pressure 220s in the emergency room over 90s, oxygen saturation low 90s on room air. PHYSICAL EXAMINATION: She is sitting up in bed, giving appropriate answers. She feels weak and fatigued. CARDIOVASCULAR: S1, S2. LUNGS: Rales at the bases. GI: Soft. HEMATOLOGY: Negative Homans. PSYCH: Fair mood and affect. ASSESSMENT: 1. Acute on chronic anemia. 2. Acute congestive heart failure. 3. Acute renal failure. 4. Hypertensive urgency. 5. Insulin-dependent diabetes mellitus. 6. History of pancreatitis. IV hypertension control will be done. Dialysis emergency will be done. Blood transfusion will be done. Hypertensive urgency will be treated. For insulin-dependent diabetes mellitus, we will hold her regular insulin and just do sliding scale and continue with the home long-acting insulin. History of pancreatitis will be continued. secondary to renal function. Continue current treatment. Follow up in the next 24 to 48 hours. Cardiology consult. Renal consult. Blood transfusion. Please see further orders. MMODL / IJN: [id number] /
[2017-09-23] MEDS: hydrALAZINE HCL 20 MG/ML 1 ML VIAL IVP PRN ×2 (00:12→04:36)
[2017-09-23] MEDS: NITROGLYCERIN OINT 1 INCH/GM PACKET TOPICAL SCH ×3 (00:16→12:08)
[2017-09-23] MEDS: PROCHLORPERAZINE 10 MG TAB PO PRN ×2 (00:16→20:21)
[2017-09-23 01:29] LABS: Glucose,Whole Blood 169 mg/dL (75-99)
[2017-09-23] MEDS: HYDROcodone/APAP 5-325MG 1 EACH TAB PO PRN ×3 (04:37→20:20)
[2017-09-23 05:57] LABS: Glucose,Whole Blood 123 mg/dL (75-99)
[2017-09-23] MEDS: INSULIN ASPART 100 UNIT/ML 1 ML 10 ML VIAL SQ SCH ×4 (06:20→21:36)
[2017-09-23] MEDS: SEVELAMER 800 MG TAB PO SCH ×3 (06:22→17:25)
[2017-09-23] MEDS: PANTOPRAZOLE 40 MG TABLET PO SCH (06:22)
[2017-09-23] MEDS: FUROSEMIDE 10 MG/ML 4 ML VIAL IV SCH ×2 (06:22→17:25)
[2017-09-23 06:35] LABS: Anisocytosis Slight; Basophils % (A) 0 %; Eosinophils # (A) 0.1 k/uL (0-0.7); Eosinophils % (A) 2 %; HCT 24.4 % (34.0-46.0); Lymphocytes # (A) 0.3 k/uL (1.0-4.8); Lymphocytes % (A) 11 %; MCH 33.1 pg (25.0-35.0); MCHC 33.6 g/dL (31.0-37.0); Macrocytosis Slight; Mean Platelet Volume 7.6; Monocytes # (A) 0.2 k/uL (0-1.0); Monocytes % (A) 6 %; Neutrophils # (A) 2.3 k/uL (1.3-7.7); Neutrophils % (A) 80 %; Poikilocytosis Slight; RBC 2.48 m/uL (3.80-5.40); RDW 19.6 % (11.5-15.5); WBC 2.8 k/uL (3.8-10.6)
[2017-09-23 06:42] LABS: Calcium 9.2 mg/dL (8.4-10.2); Potassium 4.7 mmol/L (3.5-5.1); Total Bilirubin 1.2 mg/dL (0.2-1.3); Total Protein 6.6 g/dL (6.3-8.2)
[2017-09-23 07:16] LABS: HGB 8.2 gm/dL (11.4-16.0)
[2017-09-23 07:17] LABS: MCV 98.4 fL (80.0-100.0); Platelet Count 96 k/uL (150-450)
[2017-09-23] MEDS ORDERED: PANTOPRAZOLE SODIUM 40 MG GRANULE PKT PO SCH (07:30)
[2017-09-23] MEDS ORDERED: DARBEPOETIN ALFA 40 MCG/0.4 ML SYRINGE SQ SCH (09:00)
--- NOTE | 2017-09-23 09:03 | P.PN ---
Subjective Patient is seen in follow-up for end-stage renal disease. Patient presented with symptomatic anemia and received blood transmission. Hemoglobin is 8.2 today. She underwent hemodialysis yesterday and tolerated it well. Currently resting in bed. She did have dry heaves this morning. Also admits to having epistaxis. Vital signs are stable. General: The patient appeared well nourished and normally developed. HEENT: Head exam is unremarkable. Neck is without jugular venous distension. LUNGS: Lungs are clear to auscultation and percussion. Breath sounds decreased. HEART: Rate and Rhythm are regular. First and second heart sounds normal. No murmurs, rubs or gallops. ABDOMEN: Abdominal exam reveals normal bowel sounds. Non-tender and non- distended. No evidence of peritonitis. EXTREMITITES: No clubbing, cyanosis, or edema. Objective - Vital Signs Vital signs: Vital Signs Temp 97.2 F L 09/23/17 04:00 Pulse 99 09/23/17 04:00 Resp 17 09/23/17 04:00 BP 181/82 09/23/17 04:00 Pulse Ox 98 09/23/17 04:00 Intake & Output 09/22/17 09/23/17 09/23/17 18:59 06:59 18:59 Intake Total 430 310 0 Output Total 700 200 Balance -270 110 0 Weight 78.6 kg 78.5 kg Intake: Oral 120 0 Blood Product 310 310 Rc Irr As1 Unit 310 [id number] Rc Irr As1 Unit 0 310 [id number] Output: Urine 700 200 Other: Voiding Method Bedside Commode # Voids 1 0 # Bowel Movements 0 0 - Labs CBC & Chem 7: 09/23/17 06:05 09/23/17 06:05 Labs: Abnormal Lab Results - Last 24 Hours (Table) 09/22/17 09/22/17 09/22/17 Range/Units 07:22 11:41 16:47 WBC (3.8-10.6) k/uL RBC (3.80-5.40) m/uL Hgb (11.4-16.0) gm/dL Hct (34.0-46.0) % RDW (11.5-15.5) % Plt Count (150-450) k/uL Lymphocytes # (1.0-4.8) k/uL BUN (7-17) mg/dL Creatinine (0.52-1.04) mg/dL Glucose (74-99) mg/dL POC Glucose (mg/dL) 219 H 229 H (75-99) mg/dL Crossmatch See Detail 09/22/17 09/23/17 09/23/17 Range/Units 20:58 01:26 05:56 WBC (3.8-10.6) k/uL RBC (3.80-5.40) m/uL Hgb (11.4-16.0) gm/dL Hct (34.0-46.0) % RDW (11.5-15.5) % Plt Count (150-450) k/uL Lymphocytes # (1.0-4.8) k/uL BUN (7-17) mg/dL Creatinine (0.52-1.04) mg/dL Glucose (74-99) mg/dL POC Glucose (mg/dL) 180 H 169 H 123 H (75-99) mg/dL Crossmatch 09/23/17 09/23/17 Range/Units 06:05 06:05 WBC 2.8 L (3.8-10.6) k/uL RBC 2.48 L (3.80-5.40) m/uL Hgb 8.2 L D (11.4-16.0) gm/dL Hct 24.4 L (34.0-46.0) % RDW 19.6 H (11.5-15.5) % Plt Count 96 L (150-450) k/uL Lymphocytes # 0.3 L (1.0-4.8) k/uL BUN 39 H (7-17) mg/dL Creatinine 5.10 H* (0.52-1.04) mg/dL Glucose 111 H (74-99) mg/dL POC Glucose (mg/dL) (75-99) mg/dL Crossmatch Assessment and Plan Plan: Assessment: 1. End-stage renal disease maintained on hemodialysis on a Thursday schedule via left upper extremity AV fistula. 2. Acute on chronic anemia status post blood transfusion. Hemoglobin 8.2 this morning. She does have underlying myelodysplasia and has undergone extensive workup for anemia including bone marrow biopsy. She is maintained on DEVENDRA as an outpatient. 3. Hypertension with chronic kidney disease. Blood pressure high partially related to dry heaves. 4. Chronic kidney disease mineral bone disease maintained on Renvela. 5. Diabetes mellitus. 6. Volume overload. Improved with ultrafiltration. 7. Diastolic CHF with moderate pulmonary hypertension. Plan: Hemodialysis tomorrow with goal 3 L ultrafiltration. Check phosphorus level. Add Aranesp. Maintain antiemetics.
[2017-09-23] MEDS: hydrALAZINE HCL 50 MG TAB PO SCH ×3 (09:13→20:21)
[2017-09-23] MEDS: GABAPENTIN 100 MG CAP PO SCH ×3 (09:13→20:21)
[2017-09-23] MEDS: METOPROLOL TARTRATE 25 MG TAB PO SCH (09:13)
[2017-09-23] MEDS: cloNIDine HCL 0.1 MG TAB PO SCH ×3 (09:14→20:21)
[2017-09-23] MEDS: CEPHALEXIN 250 MG CAP PO SCH (09:14)
[2017-09-23] MEDS: MAGNESIUM OXIDE 400 MG TAB PO SCH ×2 (09:15→20:21)
[2017-09-23] MEDS: levOCARNitine (WITH SUGAR) 100 MG/ML BOTTLE PO SCH ×2 (09:17→20:22)
[2017-09-23] MEDS: ERYTHROMYCIN 5 MG/GM OPHTH OINT 3.5 GM TUBE RIGHT EYE SCH ×2 (09:17→20:21)
[2017-09-23 11:34] LABS: Glucose,Whole Blood 206 mg/dL (75-99)
[2017-09-23] MEDS: FOLIC ACID-VIT B COMPLEX-VIT C 1 CAP PO SCH (12:07)
[2017-09-23] MEDS: amLODIPine 5 MG TAB PO SCH (12:07)
[2017-09-23] MEDS ORDERED: amLODIPine 5 MG TAB PO ONE (13:45)
[2017-09-23] MEDS ORDERED: METOPROLOL TARTRATE 25 MG TAB PO ONE (13:45)
--- NOTE | 2017-09-23 14:02 | PN ---
PROGRESS NOTE SUBJECTIVE: This is a 52-year-old white female with hypertension acceleration, 220 systolic on admission. She has been running 160s to 180s all days. Awaiting Cardiology recommendations on her cardiac medication. Remains on multiple medications, she is still running high blood pressures. She is getting dialysis yesterday and tomorrow, oxygen level is 94%. Labs look essentially good except for creatinine of 5.9. CARDIOVASCULAR: S1-S2. LUNGS: Transmitted upper airway sounds. GI: Soft. HEMATOLOGIC: Negative Homans. PSYCH: She is giving appropriate answers. Sitting up in bed, answering appropriately. ASSESSMENT: 1. Hypertension acceleration. 2. End-stage renal disease. 3. Diabetes mellitus. 4. Dyslipidemia. 5. History of pancreatitis. 6. History of peripheral neuropathy. PLAN: Continue current treatments except for blood pressure modification by Cardiology. If her blood pressure stabilizes, I will be able to discharge her home to follow up as an outpatient for blood pressure control. MMODL / IJN: [id number] /
--- NOTE | 2017-09-23 15:15 | P.PN ---
Subjective Progress Note Date: 09/23/17 This is a 52-year-old female with known history of chronic kidney disease going through the process to be put on the transplant list at [facility], on hemodialysis, diabetes, hypertension, hyperlipidemia, anemia, who presented to the hospital with symptoms of bilateral leg aching, generalized body aches, and shortness of breath. She states that she received a call at home on Thursday that her hemoglobin was low, she called the dialysis center yesterday to tell them how she was feeling, they stated that the repeat hemoglobin was even lower and that she should come to the emergency room for further evaluation. Blood pressure on arrival here to 39/104, heart rate 107, 87% on room air. Blood pressure this morning 140/70, heart rate 120, temperature 98.5 , she's 96% on 4 L of oxygen. EKG on arrival here showed a sinus tachycardia with incomplete right bundle branch block pattern. Chest x-ray shows congestive heart failure. White blood cell count 3.4 and admission, 3.6 morning. Hemoglobin 7.5 on admission, 6.4 this morning, platelet count 112. Sodium on admission 133, potassium 6.8, BUN 64, creatinine 7.5. This morning's labs sodium 138, potassium 4.6, BUN 46, creatinine 5.8. Patient did undergo dialysis last evening. The glucose on arrival 407. Magnesium 1.5. BNP level 5220, troponins 0.041, 0.042, 0.064. At the time of my examination this morning , patient states her breathing is significantly improved, denies any aches and pains this morning. Patient's home medications include lidocaine cream, erythromycin, Keflex, Requip, Ultram, Compazine, lactulose, Flexeril, Renvela, Lopressor 25 mg daily, Lasix 40 mg by mouth twice a day, B vitamin, Norvasc 5 mg daily, Apresoline 100 mg 3 times a day, clonidine 0.3 3 times a day, Lipitor 40 and insulin. was started on Norvasc in the emergency room, given an additional dose of clonidine, hydralazine, and IV Vasotec, initiated on IV Lasix. 09/23/2017 Patient was seen and examined this morning, overall feeling better. She did receive a blood transfusion, hemoglobin today is 8.2. White blood cell count 2.8 and platelet count 96. Sodium 138, potassium 4.7, BUN 39, creatinine 5.1. Continues to have an elevated blood pressure. Continues to be on IV Lasix. We will increase her dose of Norvasc to 10 mg daily, increase beta angela dose to 50 mg daily for more optimal blood pressure control. Objective - Vital Signs Vital signs: Vital Signs Temp 97.1 F L 09/23/17 12:30 Pulse 78 09/23/17 12:30 Resp 16 09/23/17 12:30 BP 191/91 09/23/17 12:30 Pulse Ox 94 L 09/23/17 12:30 Intake & Output 09/22/17 09/23/17 09/23/17 18:59 06:59 18:59 Intake Total 430 310 240 Output Total 700 200 Balance -270 110 240 Weight 78.6 kg 78.5 kg Intake: Oral 120 240 Blood Product 310 310 Rc Irr As1 Unit 310 [id number] Rc Irr As1 Unit 0 310 [id number] Output: Urine 700 200 Other: Voiding Method Bedside Commode # Voids 1 0 # Bowel Movements 0 0 - Exam PHYSICAL EXAMINATION: HEENT: Head is atraumatic, normocephalic. Pupils equal, round. Neck is supple. There is no elevated jugular venous pressure. HEART EXAMINATION: Heart S1, S2 normal. No murmur or gallop heard. CHEST EXAMINATION: Lungs are clear with mild diminished air entry to the bases. No chest wall tenderness is noted on palpation or with deep breathing. ABDOMEN: Soft, nontender. Bowel sounds are heard. No organomegaly noted. EXTREMITIES: 2+ peripheral pulses with no evidence of peripheral edema and no calf tenderness noted. NEUROLOGIC patient is awake, alert and oriented -3. - Labs CBC & Chem 7: 09/23/17 06:05 09/23/17 06:05 Labs: Abnormal Lab Results - Last 24 Hours (Table) 09/22/17 09/22/17 09/22/17 Range/Units 07:22 16:47 20:58 WBC (3.8-10.6) k/uL RBC (3.80-5.40) m/uL Hgb (11.4-16.0) gm/dL Hct (34.0-46.0) % RDW (11.5-15.5) % Plt Count (150-450) k/uL Lymphocytes # (1.0-4.8) k/uL BUN (7-17) mg/dL Creatinine (0.52-1.04) mg/dL Glucose (74-99) mg/dL POC Glucose (mg/dL) 229 H 180 H (75-99) mg/dL Crossmatch See Detail 09/23/17 09/23/17 09/23/17 Range/Units 01:26 05:56 06:05 WBC 2.8 L (3.8-10.6) k/uL RBC 2.48 L (3.80-5.40) m/uL Hgb 8.2 L D (11.4-16.0) gm/dL Hct 24.4 L (34.0-46.0) % RDW 19.6 H (11.5-15.5) % Plt Count 96 L (150-450) k/uL Lymphocytes # 0.3 L (1.0-4.8) k/uL BUN (7-17) mg/dL Creatinine (0.52-1.04) mg/dL Glucose (74-99) mg/dL POC Glucose (mg/dL) 169 H 123 H (75-99) mg/dL Crossmatch 09/23/17 09/23/17 Range/Units 06:05 11:32 WBC (3.8-10.6) k/uL RBC (3.80-5.40) m/uL Hgb (11.4-16.0) gm/dL Hct (34.0-46.0) % RDW (11.5-15.5) % Plt Count (150-450) k/uL Lymphocytes # (1.0-4.8) k/uL BUN 39 H (7-17) mg/dL Creatinine 5.10 H* (0.52-1.04) mg/dL Glucose 111 H (74-99) mg/dL POC Glucose (mg/dL) 206 H (75-99) mg/dL Crossmatch Assessment and Plan Plan: Assessment and plan #1 symptoms of acute dyspnea with acute fluid overload in a patient with preserved systolic function, consistent with diastolic dysfunction related to hypertension. #2 hypertensive urgency #3 end-stage renal disease on hemodialysis, awaiting to be put on the transplant list #4 hypertension #5 hyperlipidemia #6 diabetes, uncontrolled #7 history of pancreatitis #8 Anemia #9 abnormal troponins, likely secondary to abnormal renal function Plan Cardiology's perspective, we will increase the dose of Norvasc to 10 mg daily, increase beta angela to 50 mg daily. Continue IV Lasix for 24 hours. Check lytes BUN and creatinine in the morning. We will also repeat her chest x-ray tomorrow. DNP note has been reviewed, I agree with a documented findings and plan of care. Patient was seen and examined.
[2017-09-23 16:43] LABS: Glucose,Whole Blood 303 mg/dL (75-99)
[2017-09-23] MEDS: ATORVASTATIN 40 MG TAB PO SCH (20:22)
[2017-09-23] MEDS: CYCLOBENZAPRINE 5 MG TAB PO SCH (20:22)
[2017-09-23 21:05] LABS: Glucose,Whole Blood 288 mg/dL (75-99)
[2017-09-23] MEDS: INSULIN DETEMIR 100 UNIT/ML 10 ML VIAL SQ SCH (21:36)
[2017-09-23 22:11] VITALS: RESP 16
[2017-09-24] MEDS: HYDROcodone/APAP 5-325MG 1 EACH TAB PO PRN ×4 (01:22→15:56)
[2017-09-24 06:05] LABS: Glucose,Whole Blood 83 mg/dL (75-99)
[2017-09-24 06:23] LABS: Anisocytosis Slight; Basophils % (A) 1 %; Eosinophils # (A) 0.1 k/uL (0-0.7); Eosinophils % (A) 3 %; HCT 24.8 % (34.0-46.0); HGB 8.2 gm/dL (11.4-16.0); Lymphocytes # (A) 0.4 k/uL (1.0-4.8); Lymphocytes % (A) 15 %; MCHC 33.1 g/dL (31.0-37.0); MCV 99.7 fL (80.0-100.0); Macrocytosis Moderate; Mean Platelet Volume 7.5; Monocytes # (A) 0.2 k/uL (0-1.0); Monocytes % (A) 6 %; Neutrophils # (A) 2.1 k/uL (1.3-7.7); Neutrophils % (A) 74 %; Platelet Count 108 k/uL (150-450); Poikilocytosis Slight; RBC 2.49 m/uL (3.80-5.40); RDW 19.1 % (11.5-15.5); WBC 2.9 k/uL (3.8-10.6)
[2017-09-24] MEDS: INSULIN ASPART 100 UNIT/ML 1 ML 10 ML VIAL SQ SCH ×3 (06:33→17:21)
[2017-09-24 06:37] LABS: Albumin 3.8 g/dL (3.5-5.0); Calcium 9.2 mg/dL (8.4-10.2); Potassium 4.8 mmol/L (3.5-5.1); Total Protein 6.2 g/dL (6.3-8.2)
[2017-09-24] MEDS: FUROSEMIDE 10 MG/ML 4 ML VIAL IV SCH (06:38)
[2017-09-24] MEDS: SEVELAMER 800 MG TAB PO SCH ×2 (06:38→11:49)
[2017-09-24] MEDS: PANTOPRAZOLE 40 MG TABLET PO SCH (06:39)
[2017-09-24] MEDS ORDERED: METOPROLOL TARTRATE 50 MG TAB PO SCH (09:00)
--- NOTE | 2017-09-24 09:03 | P.PN ---
Subjective Patient is seen in follow-up for end-stage renal disease. Patient presented with symptomatic anemia and received blood transmission. Hemoglobin is stabilized 8.2 today. Currently seen while undergoing hemodialysis. Overall feels better. No signs of active bleeding. Vital signs are stable. General: The patient appeared well nourished and normally developed. HEENT: Head exam is unremarkable. Neck is without jugular venous distension. LUNGS: Lungs are clear to auscultation and percussion. Breath sounds decreased. HEART: Rate and Rhythm are regular. First and second heart sounds normal. No murmurs, rubs or gallops. ABDOMEN: Abdominal exam reveals normal bowel sounds. Non-tender and non- distended. No evidence of peritonitis. EXTREMITITES: No clubbing, cyanosis, or edema. Objective - Vital Signs Vital signs: Vital Signs Temp 97.1 F L 09/24/17 04:00 Pulse 90 09/24/17 08:28 Resp 16 09/24/17 04:00 BP 171/74 09/24/17 08:28 Pulse Ox 92 L 09/24/17 08:32 Intake & Output 09/23/17 09/24/17 09/24/17 18:59 06:59 18:59 Intake Total 340 180 Output Total 0 200 Balance 340 -200 180 Weight 78.7 kg Intake: Oral 340 180 Output: Urine 0 200 Other: Voiding Method Toilet # Voids 0 # Bowel Movements 0 - Labs CBC & Chem 7: 09/24/17 05:32 09/24/17 05:32 Labs: Abnormal Lab Results - Last 24 Hours (Table) 09/23/17 09/23/17 09/23/17 Range/Units 11:32 16:41 21:04 WBC (3.8-10.6) k/uL RBC (3.80-5.40) m/uL Hgb (11.4-16.0) gm/dL Hct (34.0-46.0) % RDW (11.5-15.5) % Plt Count (150-450) k/uL Lymphocytes # (1.0-4.8) k/uL Sodium (137-145) mmol/L Chloride (98-107) mmol/L BUN (7-17) mg/dL Creatinine (0.52-1.04) mg/dL POC Glucose (mg/dL) 206 H 303 H 288 H (75-99) mg/dL Total Protein (6.3-8.2) g/dL 18 09/24/17 Range/Units 05:32 05:32 WBC 2.9 L (3.8-10.6) k/uL RBC 2.49 L (3.80-5.40) m/uL Hgb 8.2 L (11.4-16.0) gm/dL Hct 24.8 L (34.0-46.0) % RDW 19.1 H (11.5-15.5) % Plt Count 108 L (150-450) k/uL Lymphocytes # 0.4 L (1.0-4.8) k/uL Sodium 136 L (137-145) mmol/L Chloride 97 L (98-107) mmol/L BUN 57 H (7-17) mg/dL Creatinine 6.90 H* (0.52-1.04) mg/dL POC Glucose (mg/dL) (75-99) mg/dL Total Protein 6.2 L (6.3-8.2) g/dL Assessment and Plan Plan: Assessment: 1. End-stage renal disease maintained on hemodialysis on a Thursday schedule via left upper extremity AV fistula. 2. Acute on chronic anemia status post blood transfusion. Hemoglobin 8.2 this morning. She does have underlying myelodysplasia and has undergone extensive workup for anemia including bone marrow biopsy. She is maintained on DEVENDRA as an outpatient. 3. Hypertension with chronic kidney disease. Expect improvement postdialysis. 4. Chronic kidney disease mineral bone disease maintained on Renvela. 5. Diabetes mellitus. 6. Volume overload. Improved with ultrafiltration. 7. Diastolic CHF with moderate pulmonary hypertension. Plan: Currently seen was undergoing hemodialysis. Next treatment on Thursday. Phosphorus level 3.3 - at goal. Maintain Aranesp. Maintain antiemetics. Anticipate discharge soon.
[2017-09-24 11:39] LABS: Glucose,Whole Blood 115 mg/dL (75-99)
[2017-09-24 11:44] VITALS: TEMP 97.8
[2017-09-24] MEDS: cloNIDine HCL 0.1 MG TAB PO SCH ×2 (11:46→15:56)
[2017-09-24] MEDS: CEPHALEXIN 250 MG CAP PO SCH (11:46)
[2017-09-24] MEDS: ERYTHROMYCIN 5 MG/GM OPHTH OINT 3.5 GM TUBE RIGHT EYE SCH (11:47)
[2017-09-24] MEDS: GABAPENTIN 100 MG CAP PO SCH ×2 (11:47→15:57)
[2017-09-24] MEDS: hydrALAZINE HCL 50 MG TAB PO SCH ×2 (11:47→15:57)
[2017-09-24] MEDS: MAGNESIUM OXIDE 400 MG TAB PO SCH (11:48)
[2017-09-24] MEDS: FOLIC ACID-VIT B COMPLEX-VIT C 1 CAP PO SCH (11:50)
[2017-09-24] MEDS: levOCARNitine (WITH SUGAR) 100 MG/ML BOTTLE PO SCH (11:55)
[2017-09-24] MEDS ORDERED: amLODIPine 10 MG TAB PO SCH (12:00)
--- NOTE | 2017-09-24 15:05 | P.PN ---
Subjective Progress Note Date: 09/24/17 This is a 52-year-old female with known history of chronic kidney disease going through the process to be put on the transplant list at [facility], on hemodialysis, diabetes, hypertension, hyperlipidemia, anemia, who presented to the hospital with symptoms of bilateral leg aching, generalized body aches, and shortness of breath. She states that she received a call at home on Thursday that her hemoglobin was low, she called the dialysis center yesterday to tell them how she was feeling, they stated that the repeat hemoglobin was even lower and that she should come to the emergency room for further evaluation. Blood pressure on arrival here to 39/104, heart rate 107, 87% on room air. Blood pressure this morning 140/70, heart rate 120, temperature 98.5 , she's 96% on 4 L of oxygen. EKG on arrival here showed a sinus tachycardia with incomplete right bundle branch block pattern. Chest x-ray shows congestive heart failure. White blood cell count 3.4 and admission, 3.6 morning. Hemoglobin 7.5 on admission, 6.4 this morning, platelet count 112. Sodium on admission 133, potassium 6.8, BUN 64, creatinine 7.5. This morning's labs sodium 138, potassium 4.6, BUN 46, creatinine 5.8. Patient did undergo dialysis last evening. The glucose on arrival 407. Magnesium 1.5. BNP level 5220, troponins 0.041, 0.042, 0.064. At the time of my examination this morning , patient states her breathing is significantly improved, denies any aches and pains this morning. Patient's home medications include lidocaine cream, erythromycin, Keflex, Requip, Ultram, Compazine, lactulose, Flexeril, Renvela, Lopressor 25 mg daily, Lasix 40 mg by mouth twice a day, B vitamin, Norvasc 5 mg daily, Apresoline 100 mg 3 times a day, clonidine 0.3 3 times a day, Lipitor 40 and insulin. was started on Norvasc in the emergency room, given an additional dose of clonidine, hydralazine, and IV Vasotec, initiated on IV Lasix. 09/23/2017 Patient was seen and examined this morning, overall feeling better. She did receive a blood transfusion, hemoglobin today is 8.2. White blood cell count 2.8 and platelet count 96. Sodium 138, potassium 4.7, BUN 39, creatinine 5.1. Continues to have an elevated blood pressure. Continues to be on IV Lasix. We will increase her dose of Norvasc to 10 mg daily, increase beta angela dose to 50 mg daily for more optimal blood pressure control. 09/24/2017 Patient seen and examined this morning, apparently in the blankenship without any difficulty. Breathing is stable. Blood pressure 140/70. Objective - Vital Signs Vital signs: Vital Signs Temp 97.8 F 09/24/17 11:43 Pulse 87 09/24/17 11:43 Resp 16 09/24/17 11:43 BP 141/78 09/24/17 11:43 Pulse Ox 96 09/24/17 11:43 Intake & Output 09/23/17 09/24/17 09/24/17 18:59 06:59 18:59 Intake Total 340 360 Output Total 0 200 Balance 340 -200 360 Weight 78.7 kg Intake: Oral 340 360 Output: Urine 0 200 Other: Voiding Method Toilet Toilet # Voids 0 2 # Bowel Movements 0 - Exam PHYSICAL EXAMINATION: HEENT: Head is atraumatic, normocephalic. Pupils equal, round. Neck is supple. There is no elevated jugular venous pressure. HEART EXAMINATION: Heart S1, S2 normal. No murmur or gallop heard. CHEST EXAMINATION: Lungs are clear with mild diminished air entry to the bases. No chest wall tenderness is noted on palpation or with deep breathing. ABDOMEN: Soft, nontender. Bowel sounds are heard. No organomegaly noted. EXTREMITIES: 2+ peripheral pulses with no evidence of peripheral edema and no calf tenderness noted. NEUROLOGIC patient is awake, alert and oriented -3. - Labs CBC & Chem 7: 09/24/17 05:32 09/24/17 05:32 Labs: Abnormal Lab Results - Last 24 Hours (Table) 09/23/17 09/23/17 09/24/17 Range/Units 16:41 21:04 05:32 WBC 2.9 L (3.8-10.6) k/uL RBC 2.49 L (3.80-5.40) m/uL Hgb 8.2 L (11.4-16.0) gm/dL Hct 24.8 L (34.0-46.0) % RDW 19.1 H (11.5-15.5) % Plt Count 108 L (150-450) k/uL Lymphocytes # 0.4 L (1.0-4.8) k/uL Sodium (137-145) mmol/L Chloride (98-107) mmol/L BUN (7-17) mg/dL Creatinine (0.52-1.04) mg/dL POC Glucose (mg/dL) 303 H 288 H (75-99) mg/dL Total Protein (6.3-8.2) g/dL 18 09/24/17 Range/Units 05:32 11:37 WBC (3.8-10.6) k/uL RBC (3.80-5.40) m/uL Hgb (11.4-16.0) gm/dL Hct (34.0-46.0) % RDW (11.5-15.5) % Plt Count (150-450) k/uL Lymphocytes # (1.0-4.8) k/uL Sodium 136 L (137-145) mmol/L Chloride 97 L (98-107) mmol/L BUN 57 H (7-17) mg/dL Creatinine 6.90 H* (0.52-1.04) mg/dL POC Glucose (mg/dL) 115 H (75-99) mg/dL Total Protein 6.2 L (6.3-8.2) g/dL Assessment and Plan Plan: Assessment and plan #1 symptoms of acute dyspnea with acute fluid overload in a patient with preserved systolic function, consistent with diastolic dysfunction related to hypertension. #2 hypertensive urgency #3 end-stage renal disease on hemodialysis, awaiting to be put on the transplant list #4 hypertension #5 hyperlipidemia #6 diabetes, uncontrolled #7 history of pancreatitis #8 Anemia #9 abnormal troponins, likely secondary to abnormal renal function Plan Cardiology's perspective, we will continue the patient on her current medications. She may be able to be discharged once cleared by primary. Follow- up appointment will be made in the office post discharge. DNP note has been reviewed, I agree with a documented findings and plan of care. Patient was seen and examined.
--- NOTE | 2017-09-24 15:31 | P.CONS ---
History of Present Illness - Reason for Consult Consult date: 09/24/17 pancytopenia Requesting physician: David Bragg - Chief Complaint SOB - History of Present Illness Ms Desouza is a pleasant WF, with multiple medical problems, who was seen by Dr De in 2009-, for low blood counts. Per the pt , this related to her WBC. She had a bone marrow done, and states that she was told she had " less than 5% risk of cancer". She did not f/u with Hem-Onc since, till 07/23. She was admitted to [facility] with sepsis due to toe infection. She developed pancytopenia, which was felt to be due to sepsis, with counts showing some improvement as she recovered. She has a h/o severe pancreatitis resulting in renal failure in 2009, requiring HD for a few mths. She developed AUDREY in 07/23 again, but recovered. She was placed back on HD in 11/23. She was noted to have a Hgb of 6.9 on 01/10/16 and received PRBC transfusion. Hgb fell to 6.2 again on 03/12/16 requiring repeat transfusion. She denied obvious bleeding. She was thus referred here for further evaluation and recommendations. Records and labs from 07/23 and other admissions to [facility] since were reviewed. Her bone marrow from 2010 had shown dyspoeitic changes. Additional labs were ordered which were negative other than a mild kappa elevation vs lambda with a ratio of 2.49 She is being evaluated for a renal transplant at [facility]. Thus a repeat bone marrow was done on 05/19/16, again showing mild dyspoeitic changes, with no evidence of progression. She denied any f/c/n/v/obvious bleeding. During assessment today she states she was last seen by highway engineering technician Dr. Arguelles [facility], he was performing work-up on her peripheral blood, but has not heard back. She states she is requiring blood transfusions 1-2x per month and having intermittent parental iron infusions. Review of Systems A 14 point review of systems was assessed and completed and all negative except HPI Past Medical History Past Medical History: Blood Disorder, Heart Failure, Diabetes Mellitus, Dialysis , Hyperlipidemia, Hypertension, Liver Disease, Pneumonia, Renal Disease Additional Past Medical History / Comment(s): Current R eye infection, bilateral cataracts, bilateral retinal hemorrhages, hypertriglyceridemia- induced acute pancreatitis, THEN necrotizing pancreatitis. hemodialysis for acute kidney injury 2 months in 2009 after pancreatic OR, 11/2015 diagnosed w/ chronic kidney disease-hemodialysis //, IDDM type II, pt states she has dry heaves day after dialysis, chronic anemia, body cramping when blood sugars are high, occasional low back pain, carter's palsy x2, past L leg fx. History of Any Multi-Drug Resistant Organisms: None Reported Past Surgical History: Orthopedic Surgery, Uterine Ablation Additional Past Surgical History / Comment(s): 08/26/17 colonoscopy with polypectomy/bx, pancreatic resection at [facility] 2009, bone marrow biopsies X2-last one 05/19/16,. dialysis chest port x 2 with removals, Left arm shunt placement for dialysis - December 2015 and a revision done with shunt/ Past Anesthesia/Blood Transfusion Reactions: No Reported Reaction Additional Past Anesthesia/Blood Transfusion Reaction / Comm: Pt has received blood transfusions without reaction. Smoking Status: Never smoker - Past Family History Brother(s) Family Medical History: No Reported History Mother Family Medical History: Cancer, Diabetes Mellitus, Hypertension Additional Family Medical History / Comment(s): Mother of throat cancer at the age of 63 yrs. She was a smoker. Father Family Medical History: Coronary Artery Disease (CAD), Hyperlipidemia, Hypertension Additional Family Medical History / Comment(s): Father is 70 yrs old. Medications and Allergies Home Medications Medication Instructions Recorded Confirmed Type Atorvastatin [Lipitor] 40 mg PO HS 09/14/15 09/21/17 History Cyclobenzaprine [Flexeril] 5 mg PO HS 09/14/15 09/21/17 History Magnesium Gluconate [Magonate] 1,000 mg PO BID 09/14/15 09/21/17 History Furosemide [Lasix] 40 mg PO BID 03/12/16 09/21/17 History Insulin Glargine [Lantus] 80 unit SQ HS 04/18/16 09/21/17 History Prochlorperazine [Compazine] 10 mg PO BID PRN 05/14/16 09/21/17 History hydrALAZINE HCL [Apresoline] 100 mg PO TID #180 tab 06/10/16 09/21/17 Rx Insulin NPL/Insulin Lispro See Protocol SQ ACHS PRN 12/16/16 09/21/17 History [humaLOG MIX 75-25 VIAL] Metoprolol Tartrate [Lopressor] 25 mg PO DAILY 12/16/16 09/21/17 History Sevelamer [Renvela] 2,400 mg PO AC-TID 12/16/16 09/21/17 History cloNIDine HCL 0.3 mg PO TID 12/16/16 09/21/17 History amLODIPine [Norvasc] 5 mg PO DAILY@1200 02/07/17 09/21/17 History rOPINIRole HCL [Requip] 1 mg PO TID 02/07/17 09/21/17 History Levocarnitine (with Sugar) 300 mg PO BID #118 ml 02/11/17 09/21/17 Rx [Levocarnitine 1 G/10 ml Oral Soln] B Complex W-C No.20/Folic Acid 1 mg PO DAILY 08/21/17 09/21/17 History [Renal Caps Softgel] Gabapentin [Neurontin] 100 mg PO TID 08/21/17 09/21/17 History Insulin NPL/Insulin Lispro 20 units SQ ACHS 08/21/17 09/21/17 History [humaLOG MIX 75-25 VIAL] Lactulose [Constulose] 10 gm PO TID PRN 08/21/17 09/21/17 History Sevelamer [Renvela] 800 mg PO BID PRN 08/21/17 09/21/17 History traMADol HCl [Ultram] 50 mg PO Q4H PRN 08/21/17 09/21/17 History Cephalexin [Keflex] 250 mg PO BID 09/21/17 09/21/17 History Erythromycin Base [Erythromycin] 1 applic RIGHT EYE BID 09/21/17 09/21/17 History Lidocaine-Prilocaine Cream [Emla 1 applic TOPICAL DAILY PRN 09/21/17 09/21/17 History Cream 2.5%/2.5%] Omeprazole 40 mg PO DAILY 09/22/17 09/22/17 History Allergies Allergy/AdvReac Type Severity Reaction Status Date / Time ciprofloxacin [From Cipro] AdvReac AFFECTED Verified 09/21/17 12:37 EYESIGHT ciprofloxacin HCl AdvReac AFFECTED Verified 09/21/17 12:37 [From Cipro] EYESIGHT Iodinated Contrast- Oral and AdvReac RENAL Verified 09/21/17 12:37 IV Dye FAILURE Physical Exam Vitals: Vital Signs Temp Pulse Resp BP Pulse Ox 09/24/17 08:32 92 L 09/24/17 08:28 90 171/74 09/24/17 04:00 97.1 F L 80 16 178/77 95 09/23/17 23:54 76 16 172/64 98 09/23/17 20:00 97 F L 82 16 160/72 94 L 09/23/17 16:00 79 18 172/74 96 09/23/17 12:30 97.1 F L 78 16 191/91 94 L Intake and Output 09/23/17 09/24/17 09/24/17 22:59 06:59 14:59 Intake Total 100 180 Output Total 0 200 Balance 100 -200 180 Intake: Oral 100 180 Output: Urine 0 200 Other: Voiding Method Toilet Toilet Weight 78.7 kg - Constitutional General appearance: cooperative, no acute distress - EENT Eyes: EOMI, PERRLA, dentition normal ENT: NA/AT, normal oropharynx - Neck Neck: normal ROM - Respiratory Respiratory: bilateral: CTA (No increased effort) - Cardiovascular Rhythm: regular Heart sounds: normal: S1, S2 leg Peripheral Edema: bilateral: Trace - Gastrointestinal General gastrointestinal: normal bowel sounds, soft - Integumentary Integumentary: pale - Neurologic Neurologic: CNII-XII intact - Musculoskeletal Musculoskeletal: generalized weakness, strength equal bilaterally - Psychiatric Psychiatric: A&O x's 3, appropriate affect, intact judgment & insight Results CBC & Chem 7: 09/24/17 05:32 09/24/17 05:32 Labs: Abnormal Lab Results - Last 24 Hours (Table) 09/23/17 09/23/17 09/23/17 Range/Units 11:32 16:41 21:04 WBC (3.8-10.6) k/uL RBC (3.80-5.40) m/uL Hgb (11.4-16.0) gm/dL Hct (34.0-46.0) % RDW (11.5-15.5) % Plt Count (150-450) k/uL Lymphocytes # (1.0-4.8) k/uL Sodium (137-145) mmol/L Chloride (98-107) mmol/L BUN (7-17) mg/dL Creatinine (0.52-1.04) mg/dL POC Glucose (mg/dL) 206 H 303 H 288 H (75-99) mg/dL Total Protein (6.3-8.2) g/dL 09/24/1718 Range/Units 05:32 05:32 WBC 2.9 L (3.8-10.6) k/uL RBC 2.49 L (3.80-5.40) m/uL Hgb 8.2 L (11.4-16.0) gm/dL Hct 24.8 L (34.0-46.0) % RDW 19.1 H (11.5-15.5) % Plt Count 108 L (150-450) k/uL Lymphocytes # 0.4 L (1.0-4.8) k/uL Sodium 136 L (137-145) mmol/L Chloride 97 L (98-107) mmol/L BUN 57 H (7-17) mg/dL Creatinine 6.90 H* (0.52-1.04) mg/dL POC Glucose (mg/dL) (75-99) mg/dL Total Protein 6.2 L (6.3-8.2) g/dL Assessment and Plan (1) ESRD (end stage renal disease) on dialysis Current Visit: Yes Status: Acute Code(s): N18.6 - END STAGE RENAL DISEASE; Z99.2 - DEPENDENCE ON RENAL DIALYSIS SNOMED Code(s): 921559191 (2) Pancytopenia Current Visit: No Status: Chronic Priority: High Code(s): D61.818 - OTHER PANCYTOPENIA SNOMED Code(s): 929541593 Plan: Assessment and Recommendations: 1. Chronic Pancytopenia - Multifactoral - Currently Following with Shopping Centre Manager Dr. Arguelles out of [facility] - Obtain most recent lab test results and treatment plan from [facility] - Transfuse PRBC with Diaysis if hgb less than 7 - Monitor CBC Daily - Bone Marrow Biopsy completed 2016, Will obtain results ([facility]) - Agree with [facility] for anemia secondary to chronic/end stage renal failure - Last Colonoscopy in August, no recent EGD per patient 2. ESRD - Hemodiaylsis - Per Nephrology Physician Attestation: I have completed the full history and physical of this patient and discussed and agree with above dictation by Evelyn Rodriguez NP, DIctated as a scribe.
[2017-09-24 15:54] VITALS: BP 154/62; PULSE 80
[2017-09-24 17:04] LABS: Glucose,Whole Blood 359 mg/dL (75-99)
--- NOTE | 2017-09-24 21:57 | DS ---
DISCHARGE SUMMARY DISCHARGE MEDICATIONS: 1. Omeprazole 40 mg daily. 2. Keflex 250 b.i.d. 3. Erythromycin ointment right eye b.i.d. 4. EMLA cream topically daily for dialysis. 5. B complex vitamin daily. b.i.d. 6. Neurontin 800 mg t.i.d. 7. Lactulose 10 g t.i.d. 8. Tramadol 50 mg q.4 hours p.r.n. 9. Levocarnitine 300 mg b.i.d. 10.Requip 1 mg t.i.d. 11.Clonidine 0.3 t.i.d. 12.Humalog 75/25 a.c. and q.h.s. 13.Apresoline 100 mg t.i.d. 14. mg a.c. t.i.d. 15.Lipitor 40 mg daily. 16.Magnesium 1000 b.i.d. 17.Flexeril 5 q.h.s. 18.Lasix 40 b.i.d. 19.Lantus 80 units daily. 20.Accu-Chek protocol a.c. and q.h.s. 21.Norvasc 10 mg daily. 22.Aranesp 40 mg subcu 7 hours. 23.NovoLog a.c. q.h.s. 24.Lopressor 50 mg daily. CONDITION: Stable. PROGNOSIS: Guarded. Ambulate as tolerated. HOSPITAL COURSE: This is a white female who was admitted to the hospital with hypertension acceleration, O2 20 systolic needed IV multiple IV medications to treat to get the blood pressure down to 140 systolic on discharge. She is on multiple medications. Seen by Cardiology as she has congestive heart failure and acute renal failure, acute on chronic end-stage renal failure, hyperkalemia, uncontrolled hypertension. Medications were adjusted. Dialysis was done multiple times. Home medications are controlled. Took her off 20 units regular insulin. She takes with meals and just give Accu-Chek protocol. Sugars are in the range in the low. Continue Lantus 80 units daily. She will continue to follow up as an outpatient in the next 2-3 days and check electrolytes. MMODL / IJN: [id number] /
== END 2017-09-24 17:50 | disposition home or self-care (01) | DRG 291 ==
LOC: EC 11:39 → 6SEL 13:11
PROVIDERS: ADMIT Family Medicine; ATTEND Family Medicine
PROC: 30233N1 Transfusion of Nonautologous Red Blood Cells into Peripheral Vein, Percutaneous Approach (ICD-10-PCS; principal; 2017-09-22)
PROC: 5A1D70Z Performance of Urinary Filtration, Intermittent, Less than 6 Hours Per Day (ICD-10-PCS; 2017-09-23)
DX: I13.2 Hypertensive heart and chronic kidney disease with heart failure and with stage 5 chronic kidney disease, or end stage renal disease (principal); N18.6 End stage renal disease; N17.9 Acute kidney failure, unspecified; I50.30 Unspecified diastolic (congestive) heart failure; D61.818 Other pancytopenia; D63.8 Anemia in other chronic diseases classified elsewhere; I16.0 Hypertensive urgency; E87.5 Hyperkalemia; E78.1 Pure hyperglyceridemia; G51.0 Bell's palsy; I45.10 Unspecified right bundle-branch block; R04.0 Epistaxis; E11.65 Type 2 diabetes mellitus with hyperglycemia; K76.9 Liver disease, unspecified; R00.0 Tachycardia, unspecified; I27.20 Pulmonary hypertension, unspecified; M89.9 Disorder of bone, unspecified; E11.36 Type 2 diabetes mellitus with diabetic cataract; E11.22 Type 2 diabetes mellitus with diabetic chronic kidney disease; L08.9 Local infection of the skin and subcutaneous tissue, unspecified; Z79.899 Other long term (current) drug therapy; Z82.49 Family history of ischemic heart disease and other diseases of the circulatory system; Z83.3 Family history of diabetes mellitus; Z80.0 Family history of malignant neoplasm of digestive organs; Z86.73 Personal history of transient ischemic attack (TIA), and cerebral infarction without residual deficits; Z79.4 Long term (current) use of insulin; Z76.82 Awaiting organ transplant status; Z87.01 Personal history of pneumonia (recurrent); Z88.1 Allergy status to other antibiotic agents; Z91.041 Radiographic dye allergy status; Z99.2 Dependence on renal dialysis
CPT/HCPCS: 36415; 71045; 80053; 82550; 82553; 83036; 83735; 83880; 84100; 84484; 85025; 85610; 85730; 86704; 86705; 86706; 86850; 86900; 86901; 86920; 87340; 90935; 93005; 93306; 94640; 94760; 96374; 96376; 99285

== ENCOUNTER 2017-10-05 19:10 | Inpatient (IN) | payer OTHER ==
--- NOTE | 2017-10-05 19:48 | ED ---
General Adult HPI - General Chief complaint: Shortness of Breath Stated complaint: SOB Time Seen by Provider: 10/05/17 19:20 Source: patient, RN notes reviewed Mode of arrival: wheelchair Limitations: no limitations - History of Present Illness Initial comments: This is a 52-year-old female presents emergency department with past medical history significant for end-stage renal disease. Patient is on dialysis. Patient states that it was her last dialysis. Patient states since then she become short of breath and increasingly more short of breath. Patient denies any swelling to her legs. Patient states she does ache from her hips all the down to her legs. Patient denies any chest pain or palpitations. Patient states this has happened in the past and she is usually fluid overloaded. Patient denies any recent fever chills or cough. Patient denies abdominal pain. Patient denies any headache patient denies numbness weakness. Patient denies any lightheadedness or dizziness. - Related Data Home Medications Medication Instructions Recorded Confirmed Atorvastatin [Lipitor] 40 mg PO HS 09/14/15 09/21/17 Cyclobenzaprine [Flexeril] 5 mg PO HS 09/14/15 09/21/17 Magnesium Gluconate [Magonate] 1,000 mg PO BID 09/14/15 09/21/17 Furosemide [Lasix] 40 mg PO BID 03/12/16 09/21/17 Insulin Glargine [Lantus] 80 unit SQ HS 04/18/16 09/21/17 Prochlorperazine [Compazine] 10 mg PO BID PRN 05/14/16 09/21/17 Sevelamer [Renvela] 2,400 mg PO AC-TID 12/16/16 09/21/17 cloNIDine HCL 0.3 mg PO TID 12/16/16 09/21/17 rOPINIRole HCL [Requip] 1 mg PO TID 02/07/17 09/21/17 B Complex W-C No.20/Folic Acid 1 mg PO DAILY 08/21/17 09/21/17 [Renal Caps Softgel] Gabapentin [Neurontin] 100 mg PO TID 08/21/17 09/21/17 Lactulose [Constulose] 10 gm PO TID PRN 08/21/17 09/21/17 Sevelamer [Renvela] 800 mg PO BID PRN 08/21/17 09/21/17 traMADol HCl [Ultram] 50 mg PO Q4H PRN 08/21/17 09/21/17 Cephalexin [Keflex] 250 mg PO BID 09/21/17 09/21/17 Erythromycin Base [Erythromycin] 1 applic RIGHT EYE BID 09/21/17 09/21/17 Lidocaine-Prilocaine Cream [Emla 1 applic TOPICAL DAILY PRN 09/21/17 09/21/17 Cream 2.5%/2.5%] Omeprazole 40 mg PO DAILY 09/22/17 09/22/17 Previous Rx's Medication Instructions Recorded hydrALAZINE HCL [Apresoline] 100 mg PO TID #180 tab 06/10/16 Levocarnitine (with Sugar) 300 mg PO BID #118 ml 02/11/17 [Levocarnitine 1 G/10 ml Oral Soln] Darbepoetin Drew [Aranesp] 40 mcg SQ Q7D syringe 09/24/17 HYDROcodone/APAP 5-325MG [[place] 1 tab PO Q8HR PRN #45 tab 09/24/17 5-325] Insulin Aspart [NovoLOG 0 unit SQ ACHS vial 09/24/17 (formulary)] Metoprolol Tartrate [Lopressor] 50 mg PO DAILY tab 09/24/17 amLODIPine [Norvasc] 10 mg PO 1200 tab 09/24/17 Allergies Allergy/AdvReac Type Severity Reaction Status Date / Time ciprofloxacin [From Cipro] AdvReac AFFECTED Verified 09/21/17 12:37 EYESIGHT ciprofloxacin HCl AdvReac AFFECTED Verified 09/21/17 12:37 [From Cipro] EYESIGHT Iodinated Contrast- Oral and AdvReac RENAL Verified 09/21/17 12:37 IV Dye FAILURE Review of Systems ROS Statement: Those systems with pertinent positive or pertinent negative responses have been documented in the HPI. ROS Other: All systems not noted in ROS Statement are negative. Past Medical History Past Medical History: Blood Disorder, Heart Failure, Diabetes Mellitus, Dialysis , Hyperlipidemia, Hypertension, Liver Disease, Pneumonia, Renal Disease Additional Past Medical History / Comment(s): Current R eye infection, bilateral cataracts, bilateral retinal hemorrhages, hypertriglyceridemia- induced acute pancreatitis, THEN necrotizing pancreatitis. hemodialysis for acute kidney injury 2 months in 2009 after pancreatic OR, 11/2015 diagnosed w/ chronic kidney disease-hemodialysis //, IDDM type II, pt states she has dry heaves day after dialysis, chronic anemia, body cramping when blood sugars are high, occasional low back pain, carter's palsy x2, past L leg fx. History of Any Multi-Drug Resistant Organisms: None Reported Past Surgical History: Orthopedic Surgery, Uterine Ablation Additional Past Surgical History / Comment(s): 08/26/17 colonoscopy with polypectomy/bx, pancreatic resection at [facility] 2009, bone marrow biopsies X2-last one 05/19/16,. dialysis chest port x 2 with removals, Left arm shunt placement for dialysis - December 2015 and a revision done with shunt/ Past Anesthesia/Blood Transfusion Reactions: No Reported Reaction Additional Past Anesthesia/Blood Transfusion Reaction / Comment(s): Pt has received blood transfusions without reaction. Past Psychological History: No Psychological Hx Reported Smoking Status: Never smoker Past Alcohol Use History: None Reported Past Drug Use History: None Reported - Past Family History Brother(s) Family Medical History: No Reported History Mother Family Medical History: Cancer, Diabetes Mellitus, Hypertension Additional Family Medical History / Comment(s): Mother of throat cancer at the age of 63 yrs. She was a smoker. Father Family Medical History: Coronary Artery Disease (CAD), Hyperlipidemia, Hypertension Additional Family Medical History / Comment(s): Father is 70 yrs old. General Exam - General Exam Comments Initial Comments: GENERAL: Patient is well-developed and well-nourished. Patient is nontoxic and well- hydrated and is in mild distress. ENT: Neck is soft and supple. No significant lymphadenopathy is noted. Oropharynx is clear. Moist mucous membranes. Neck has full range of motion without eliciting any pain. EYES: The sclera were anicteric and conjunctiva were pink and moist. Extraocular movements were intact and pupils were equal round and reactive to light. Eyelids were unremarkable. PULMONARY: Crackles in both bases CARDIOVASCULAR: There is a regular rate and rhythm without any murmurs gallops or rubs. ABDOMEN: Soft and nontender with normal bowel sounds. No palpable organomegaly was noted. There is no palpable pulsatile mass. SKIN: Skin is clear with no lesions or rashes and otherwise unremarkable. NEUROLOGIC: Patient is alert and oriented x3. Cranial nerves II through XII are grossly intact. Motor and sensory are also intact. Normal speech, volume and content. Symmetrical smile. MUSCULOSKELETAL: Normal extremities with adequate strength and full range of motion. No lower extremity swelling or edema. No calf tenderness. LYMPHATICS: No significant lymphadenopathy is noted PSYCHIATRIC: Normal psychiatric evaluation. Normal interpersonal interactions appears functionally intact in deals appropriately with others. No signs of depression. No signs of anxiety. Limitations: no limitations Course Vital Signs 10/05/17 10/05/17 19:18 20:24 Temperature 98.5 F Pulse Rate 91 89 Respiratory 18 18 Rate Blood Pressure 188/86 193/86 O2 Sat by Pulse 96 95 Oximetry Medical Decision Making - Medical Decision Making EKG shows normal sinus rhythm at 92 bpm [place] interval is 154 QRS is 92 QT interval 358 QTC is 442. Patient's EKG is compared to an old EKG there are no acute changes noted. Chest x-ray shows pulmonary edema. I started the patient Lasix Nitropaste. Patient was having some leg discomfort psychiatric some morphine as well. I admitted the patient to Dr. Bragg I wrote admitting orders I consult nephrology. I continued Lasix Nitropaste on the floor - Lab Data Result diagrams: 10/05/17 19:25 10/05/17 19:25 Lab Results 10/05/17 10/05/17 10/05/17 Range/Units 19:25 19:25 19:25 WBC 6.1 (3.8-10.6) k/uL RBC 2.45 L (3.80-5.40) m/uL Hgb 8.3 L (11.4-16.0) gm/dL Hct 24.5 L (34.0-46.0) % MCV 99.8 (80.0-100.0) fL MCH 33.7 (25.0-35.0) pg MCHC 33.8 (31.0-37.0) g/dL RDW 17.9 H (11.5-15.5) % Plt Count 142 L (150-450) k/uL Neutrophils % 86 % Lymphocytes % 8 % Monocytes % 4 % Eosinophils % 2 % Basophils % 0 % Neutrophils # 5.3 (1.3-7.7) k/uL Lymphocytes # 0.5 L (1.0-4.8) k/uL Monocytes # 0.2 (0-1.0) k/uL Eosinophils # 0.1 (0-0.7) k/uL Basophils # 0.0 (0-0.2) k/uL Anisocytosis Slight Macrocytosis Slight PT (9.0-12.0) sec INR (<1.2) APTT (22.0-30.0) sec Sodium 132 L (137-145) mmol/L Potassium 6.1 H (3.5-5.1) mmol/L Chloride 89 L (98-107) mmol/L Carbon Dioxide 24 (22-30) mmol/L Anion Gap 19 mmol/L BUN 83 H* (7-17) mg/dL Creatinine 8.79 H* (0.52-1.04) mg/dL Est GFR (CKD-EPI)AfAm 5 (>60 ml/min/1.73 sqM) Est GFR (CKD-EPI)NonAf 5 (>60 ml/min/1.73 sqM) Glucose 307 H (74-99) mg/dL Calcium 8.7 (8.4-10.2) mg/dL Total Bilirubin 1.0 (0.2-1.3) mg/dL AST 60 H (14-36) U/L ALT 76 H (9-52) U/L Alkaline Phosphatase 151 H (38-126) U/L Total Creatine Kinase 161 H (30-135) U/L CK-MB (CK-2) 2.4 (0.0-2.4) ng/mL CK-MB (CK-2) Rel Index 1.5 Troponin I 0.015 (0.000-0.034) ng/mL NT-Pro-B Natriuret Pep pg/mL Total Protein 6.6 (6.3-8.2) g/dL Albumin 4.3 (3.5-5.0) g/dL 10/05/17 10/05/17 Range/Units 19:25 19:25 WBC (3.8-10.6) k/uL RBC (3.80-5.40) m/uL Hgb (11.4-16.0) gm/dL Hct (34.0-46.0) % MCV (80.0-100.0) fL MCH (25.0-35.0) pg MCHC (31.0-37.0) g/dL RDW (11.5-15.5) % Plt Count (150-450) k/uL Neutrophils % % Lymphocytes % % Monocytes % % Eosinophils % % Basophils % % Neutrophils # (1.3-7.7) k/uL Lymphocytes # (1.0-4.8) k/uL Monocytes # (0-1.0) k/uL Eosinophils # (0-0.7) k/uL Basophils # (0-0.2) k/uL Anisocytosis Macrocytosis PT 9.6 (9.0-12.0) sec INR 1.0 (<1.2) APTT 22.1 (22.0-30.0) sec Sodium (137-145) mmol/L Potassium (3.5-5.1) mmol/L Chloride (98-107) mmol/L Carbon Dioxide (22-30) mmol/L Anion Gap mmol/L BUN (7-17) mg/dL Creatinine (0.52-1.04) mg/dL Est GFR (CKD-EPI)AfAm (>60 ml/min/1.73 sqM) Est GFR (CKD-EPI)NonAf (>60 ml/min/1.73 sqM) Glucose (74-99) mg/dL Calcium (8.4-10.2) mg/dL Total Bilirubin (0.2-1.3) mg/dL AST (14-36) U/L ALT (9-52) U/L Alkaline Phosphatase (38-126) U/L Total Creatine Kinase (30-135) U/L CK-MB (CK-2) (0.0-2.4) ng/mL CK-MB (CK-2) Rel Index Troponin I (0.000-0.034) ng/mL NT-Pro-B Natriuret Pep 7310 pg/mL Total Protein (6.3-8.2) g/dL Albumin (3.5-5.0) g/dL Critical Care Time Critical Care Time: Yes Total Critical Care Time: 35 Disposition Clinical Impression: Acute pulmonary edema, Chronic renal failure Disposition: ADMITTED IP TO THIS HOSP Referrals: David Bragg MD [Primary Care Provider] - 1-2 days Time of Disposition: 21:08
[2017-10-05 20:04] LABS: Anisocytosis Slight; Basophils % (A) 0 %; Eosinophils # (A) 0.1 k/uL (0-0.7); Eosinophils % (A) 2 %; HCT 24.5 % (34.0-46.0); HGB 8.3 gm/dL (11.4-16.0); Lymphocytes # (A) 0.5 k/uL (1.0-4.8); Lymphocytes % (A) 8 %; MCH 33.7 pg (25.0-35.0); MCHC 33.8 g/dL (31.0-37.0); MCV 99.8 fL (80.0-100.0); Macrocytosis Slight; Mean Platelet Volume 7.6; Monocytes # (A) 0.2 k/uL (0-1.0); Monocytes % (A) 4 %; Neutrophils # (A) 5.3 k/uL (1.3-7.7); Neutrophils % (A) 86 %; Platelet Count 142 k/uL (150-450); RBC 2.45 m/uL (3.80-5.40); RDW 17.9 % (11.5-15.5); WBC 6.1 k/uL (3.8-10.6)
[2017-10-05 20:14] LABS: Albumin 4.3 g/dL (3.5-5.0); Calcium 8.7 mg/dL (8.4-10.2); Potassium 6.1 mmol/L (3.5-5.1); Total Protein 6.6 g/dL (6.3-8.2)
[2017-10-05 20:17] LABS: Partial Thromboplastin Time 22.1 sec (22.0-30.0); Prothrombin Time 9.6 sec (9.0-12.0)
[2017-10-05 20:40] LABS: Creatine Kinase MB 2.4 ng/mL (0.0-2.4); Troponin I 0.015 ng/mL (0.000-0.034)
--- NOTE | 2017-10-05 20:45 | XR ---
EXAMINATION: XR chest 2V DATE AND TIME: 10/05/2017 8:12 PM ORDERING PROVIDER: Sedrick Monroe MD CLINICAL INDICATION: difficulty breathing TECHNIQUE: PA and lateral COMPARISON: 09/21/2017 DESCRIPTION: When compared to the prior study 4 days ago, the overall lung inflation pattern is simil ar. The process that was evident at that time is redemonstrated, presumably pulmonary edema if clinic ally corroborated. The cardiac silhouette is moderately enlarged, with differential including pericardial effusion versu s cardiomegaly. There is no pneumothorax. No pleural effusion. No acute bone or soft tissue findings. IMPRESSION: LITTLE IF ANY INTERVAL CHANGE COMPARED TO PRIOR CHEST RADIOGRAPH 4 DAYS AGO.
[2017-10-05] MEDS ORDERED: NITROGLYCERIN OINT 1 INCH/GM PACKET TOPICAL STA (20:57)
[2017-10-05] MEDS ORDERED: FUROSEMIDE 10 MG/ML 10 ML VIAL IV STA (21:01)
[2017-10-05] MEDS ORDERED: MORPHINE SULFATE 4 MG/ML SYRINGE IVP STA (21:03)
[2017-10-05 22:36] LABS: Glucose,Whole Blood 333 mg/dL (75-99)
[2017-10-05] MEDS: ENALAPRILAT 1.25 MG/ML 1 ML VIAL IVP SCH (22:49)
[2017-10-05] MEDS ORDERED: SEVELAMER 800 MG TAB PO PRN (22:54)
[2017-10-05] MEDS ORDERED: LACTULOSE 20 GM/30 ML CUP PO PRN (22:54)
[2017-10-05] MEDS ORDERED: PROCHLORPERAZINE 5 MG TAB PO PRN (22:54)
[2017-10-05] MEDS: INSULIN ASPART 100 UNIT/ML 1 ML 10 ML VIAL SQ SCH (23:55)
[2017-10-05] MEDS: INSULIN DETEMIR 100 UNIT/ML 10 ML VIAL SQ SCH (23:56)
[2017-10-05] MEDS: CYCLOBENZAPRINE 5 MG TAB PO SCH (23:56)
[2017-10-05] MEDS: cloNIDine HCL 0.1 MG TAB PO SCH (23:56)
[2017-10-05] MEDS: ATORVASTATIN 40 MG TAB PO SCH (23:56)
[2017-10-05] MEDS: GABAPENTIN 100 MG CAP PO SCH (23:57)
[2017-10-05] MEDS: NITROGLYCERIN OINT 1 INCH/GM PACKET TOPICAL SCH (23:58)
[2017-10-06 01:07] VITALS: BMI 31.4
[2017-10-06] MEDS: HYDROcodone/APAP 5-325MG 1 EACH TAB PO PRN ×3 (01:18→18:28)
[2017-10-06] MEDS: ENALAPRILAT 1.25 MG/ML 1 ML VIAL IVP SCH (04:47)
[2017-10-06 05:36] LABS: Glucose,Whole Blood 103 mg/dL (75-99)
[2017-10-06] MEDS: INSULIN ASPART 100 UNIT/ML 1 ML 10 ML VIAL SQ SCH ×6 (06:58→21:09)
[2017-10-06] MEDS: SEVELAMER 800 MG TAB PO SCH ×3 (07:00→18:11)
[2017-10-06] MEDS: NITROGLYCERIN OINT 1 INCH/GM PACKET TOPICAL SCH ×4 (07:00→23:34)
[2017-10-06] MEDS: PANTOPRAZOLE 40 MG TABLET PO SCH (07:00)
[2017-10-06] MEDS ORDERED: DARBEPOETIN ALFA 40 MCG/0.4 ML SYRINGE SQ SCH (09:00)
--- NOTE | 2017-10-06 09:44 | P.NPCON ---
History of Present Illness - Reason for Consult end stage renal disease - History of Present Illness Reason for consultation: End-stage renal disease History of present illness: Patient is a 52-year-old female seen in renal consultation for end-stage renal disease. She is maintained on hemodialysis on a Thursday schedule via left upper extremity AV fistula. Patient completed hemodialysis on Thursday. Patient states starting Thursday she felt dyspneic especially with exertion. Yesterday she couldn't even walk in her garden and had to sit down due to dyspnea. She also admits to orthopnea. She is noted to have 1+ edema in her lower extremities. Also admits to swelling in her hands. Oral intake is good. No vomiting or diarrhea. Denies chest pain. Hemoglobin 8.3. Hemodynamically stable. She does have history of diastolic CHF with moderate pulmonary hypertension. Chest x-ray did suggest pulmonary edema. Vital signs are stable. General: The patient appeared well nourished and normally developed. HEENT: Head exam is unremarkable. Neck is without jugular venous distension. LUNGS: Lungs are clear to auscultation and percussion. Breath sounds decreased. HEART: Rate and Rhythm are regular. First and second heart sounds normal. No murmurs, rubs or gallops. ABDOMEN: Abdominal exam reveals normal bowel sounds. Non-tender and non- distended. No evidence of peritonitis. EXTREMITITES: 1+ edema. Past Medical History Past Medical History: Blood Disorder, Heart Failure, Diabetes Mellitus, Dialysis , Hyperlipidemia, Hypertension, Liver Disease, Pneumonia, Renal Disease Additional Past Medical History / Comment(s): Current R eye infection, bilateral cataracts, bilateral retinal hemorrhages, hypertriglyceridemia- induced acute pancreatitis, THEN necrotizing pancreatitis. hemodialysis for acute kidney injury 2 months in 2009 after pancreatic OR, 11/2015 diagnosed w/ chronic kidney disease-hemodialysis //, IDDM type II, pt states she has dry heaves day after dialysis, chronic anemia, body cramping when blood sugars are high, occasional low back pain, acrter's palsy x2, past L leg fx. History of Any Multi-Drug Resistant Organisms: None Reported Past Surgical History: Orthopedic Surgery, Uterine Ablation Additional Past Surgical History / Comment(s): 08/26/17 colonoscopy with polypectomy/bx, pancreatic resection at [facility] 2009, bone marrow biopsies X2-last one 05/19/16,. dialysis chest port x 2 with removals, Left arm shunt placement for dialysis - December 2015 and a revision done with shunt/ Past Anesthesia/Blood Transfusion Reactions: No Reported Reaction Additional Past Anesthesia/Blood Transfusion Reaction / Comment(s): Pt has received blood transfusions without reaction. Past Psychological History: No Psychological Hx Reported Additional Psychological History / Comment(s): Pt resides at her mother in laws home at this time with spouse. They are her mother in laws caretakers. She is independent. She uses no assistive device. She drives. Smoking Status: Never smoker Past Alcohol Use History: None Reported Additional Past Alcohol Use History / Comment(s): Patient is a lifelong nonsmoker. Past Drug Use History: None Reported - Past Family History Brother(s) Family Medical History: No Reported History Mother Family Medical History: Cancer, Diabetes Mellitus, Hypertension Additional Family Medical History / Comment(s): Mother of throat cancer at the age of 63 yrs. She was a smoker. Father Family Medical History: Coronary Artery Disease (CAD), Hyperlipidemia, Hypertension Additional Family Medical History / Comment(s): Father is 70 yrs old. Medications and Allergies Home Medications Medication Instructions Recorded Confirmed Type Atorvastatin [Lipitor] 40 mg PO HS 09/14/15 10/06/17 History Cyclobenzaprine [Flexeril] 5 mg PO HS 09/14/15 10/06/17 History Magnesium Gluconate [Magonate] 500 mg PO BID 09/14/15 10/06/17 History Furosemide [Lasix] 40 mg PO BID 03/12/16 10/06/17 History Insulin Glargine [Lantus] 80 unit SQ HS 04/18/16 10/06/17 History Prochlorperazine [Compazine] 10 mg PO BID PRN 05/14/16 10/06/17 History hydrALAZINE HCL [Apresoline] 100 mg PO TID #180 tab 06/10/16 10/06/17 Rx Sevelamer [Renvela] 2,400 mg PO AC-TID 12/16/16 10/06/17 History cloNIDine HCL 0.3 mg PO TID 12/16/16 10/06/17 History rOPINIRole HCL [Requip] 1 mg PO TID 02/07/17 10/06/17 History Levocarnitine (with Sugar) 300 mg PO BID #118 ml 02/11/17 10/06/17 Rx [Levocarnitine 1 G/10 ml Oral Soln] B Complex W-C No.20/Folic Acid 1 mg PO DAILY 08/21/17 10/06/17 History [Renal Caps Softgel] Gabapentin [Neurontin] 100 mg PO TID 08/21/17 10/06/17 History Lactulose [Constulose] 10 gm PO TID PRN 08/21/17 10/06/17 History Sevelamer [Renvela] 800 mg PO BID PRN 08/21/17 10/06/17 History traMADol HCl [Ultram] 50 mg PO Q4H PRN 08/21/17 10/06/17 History Erythromycin Base [Erythromycin] 1 applic RIGHT EYE BID 09/21/17 10/06/17 History Lidocaine-Prilocaine Cream [Emla 1 applic TOPICAL DAILY PRN 09/21/17 10/06/17 History Cream 2.5%/2.5%] HYDROcodone/APAP 5-325MG [[place] 1 tab PO Q8HR PRN #45 tab 09/24/17 10/06/17 Rx 5-325] Metoprolol Tartrate [Lopressor] 50 mg PO DAILY tab 09/24/17 10/06/17 Rx INSULIN LISPRO (HumaLOG) [HumaLOG] 16 - 20 units SQ ACHS 10/06/17 10/06/17 History INSULIN LISPRO (HumaLOG) [HumaLOG] See Protocol SQ ACHS PRN 10/06/17 10/06/17 History amLODIPine [Norvasc] 10 mg PO DAILY@1200 10/06/17 10/06/17 History Allergies Allergy/AdvReac Type Severity Reaction Status Date / Time ciprofloxacin [From Cipro] AdvReac AFFECTED Verified 10/06/17 08:49 EYESIGHT ciprofloxacin HCl AdvReac AFFECTED Verified 10/06/17 08:49 [From Cipro] EYESIGHT Iodinated Contrast- Oral and AdvReac RENAL Verified 10/06/17 08:49 IV Dye FAILURE Physical Exam Vitals: Vital Signs Temp Pulse Pulse Resp BP BP Pulse Ox 10/06/17 04:40 96.9 F L 83 18 158/76 91 L 10/05/17 23:50 98.1 F 90 18 188/88 91 L 10/05/17 22:25 97.8 F 91 18 189/86 91 L 10/05/17 22:05 98.4 F 91 18 177/84 97 10/05/17 20:24 89 18 193/86 95 10/05/17 19:18 98.5 F 91 18 188/86 96 Intake and Output 10/05/17 10/06/17 10/06/17 22:59 06:59 14:59 Intake Total 180 Output Total 50 Balance -50 180 Intake: Oral 180 Output: Urine 50 Other: Voiding Method Bedside Commode Diaper # Voids 1 1 Weight 80.3 kg 80.3 kg Results - Lab Results Most recent lab results Calcium 8.7 mg/dL (8.4-10.2) 10/05/17 19:25 10/05/17 19:25 10/05/17 19:25 Assessment and Plan Plan: Assessment: 1. End-stage renal disease maintained on hemodialysis on a Thursday schedule via left upper extremity AV fistula. 2. Volume overload. 3. Diastolic CHF with moderate pulmonary hypertension. 4. Chronic kidney disease mineral bone disease maintained on Renvela. 5. Hypertension with chronic kidney disease. Partially volume sensitive. 6. Anemia of chronic kidney disease with underlying myelodysplastic disease status post extensive workup and multiple blood transfusions. 7. Hyperkalemia secondary to chronic kidney disease and hyperglycemia. Expect improvement postdialysis. 8. Hypervolemic hyponatremia. Plan: Hemodialysis today with goal 3-4 L ultrafiltration. Check phosphorus level. Check iron studies. Add Aranesp. Maintain IV Lasix. Will lower her dry weight outpatient. Thank you for the consultation. I will continue to follow the patient with you during her hospital stay.
[2017-10-06] MEDS: cloNIDine HCL 0.1 MG TAB PO SCH ×3 (10:08→21:07)
[2017-10-06] MEDS: ASPIRIN 325 MG TAB PO SCH (10:08)
[2017-10-06] MEDS: hydrALAZINE HCL 50 MG TAB PO SCH ×3 (10:10→21:07)
[2017-10-06] MEDS: FOLIC ACID-VIT B COMPLEX-VIT C 1 CAP PO SCH (10:10)
[2017-10-06] MEDS: FUROSEMIDE 10 MG/ML 10 ML VIAL IV SCH ×2 (10:10→21:08)
[2017-10-06] MEDS: GABAPENTIN 100 MG CAP PO SCH ×3 (10:10→21:07)
[2017-10-06] MEDS: METOPROLOL TARTRATE 50 MG TAB PO SCH (10:11)
[2017-10-06] MEDS: MAGNESIUM OXIDE 400 MG TAB PO SCH (10:11)
--- NOTE | 2017-10-06 11:03 | P.CRDCN ---
History of Present Illness Consult date: 10/06/17 Requesting physician: David Bragg Chief complaint: Severe shortness of breath History of present illness: This is a 52-year-old female with known history of chronic kidney disease, going through the process to be put on transplant list at [place], she is on hemodialysis, diabetes, hypertension, hyperlipidemia, anemia, who presented to the hospital with symptoms of fairly sudden onset of shortness of breath. EKG on presentation here showed a normal sinus rhythm with incomplete right bundle branch block pattern and nonspecific ST-T wave changes. Chest x- ray showed little if any interval change as compared with chest x-ray 4 days prior. Blood pressure 156/76 with a heart rate in the 80s, 91% on 4 L of oxygen. White blood cell count 6.1, hemoglobin 8.3, platelet count 142. Sodium 132, potassium 6.1, BUN 83, creatinine 8.7. Glucose on arrival 333. AST 60, ALT 76, alk phos 151, troponin 0.015, BNP 7310. Blood pressure on arrival 188/86, heart rate in the 90s, temperature 98.5, 96% on room air. Blood pressure this morning 166/78, heart rate in the 80s. Patient is scheduled to have 4 L of fluid taken off by dialysis today, she also stated that Dr. Jones will suggest increase in the amount of fluid taken off on a regular basis at her outpatient dialysis. We will start the patient on Norvasc 5 mg twice a day and discontinue the when necessary PRABHA inhibitor this morning. Recent echo performed last month revealed a normal left ventricular systolic function. Past Medical History Past Medical History: Blood Disorder, Heart Failure, Diabetes Mellitus, Dialysis , Hyperlipidemia, Hypertension, Liver Disease, Pneumonia, Renal Disease Additional Past Medical History / Comment(s): Current R eye infection, bilateral cataracts, bilateral retinal hemorrhages, hypertriglyceridemia- induced acute pancreatitis, THEN necrotizing pancreatitis. hemodialysis for acute kidney injury 2 months in 2009 after pancreatic OR, 11/2015 diagnosed w/ chronic kidney disease-hemodialysis //, IDDM type II, pt states she has dry heaves day after dialysis, chronic anemia, body cramping when blood sugars are high, occasional low back pain, carter's palsy x2, past L leg fx. History of Any Multi-Drug Resistant Organisms: None Reported Past Surgical History: Orthopedic Surgery, Uterine Ablation Additional Past Surgical History / Comment(s): 08/26/17 colonoscopy with polypectomy/bx, pancreatic resection at [facility] 2009, bone marrow biopsies X2-last one 05/19/16,. dialysis chest port x 2 with removals, Left arm shunt placement for dialysis - December 2015 and a revision done with shunt/ Past Anesthesia/Blood Transfusion Reactions: No Reported Reaction Additional Past Anesthesia/Blood Transfusion Reaction / Comment(s): Pt has received blood transfusions without reaction. Past Psychological History: No Psychological Hx Reported Additional Psychological History / Comment(s): Pt resides at her mother in laws home at this time with spouse. They are her mother in laws caretakers. She is independent. She uses no assistive device. She drives. Smoking Status: Never smoker Past Alcohol Use History: None Reported Additional Past Alcohol Use History / Comment(s): Patient is a lifelong nonsmoker. Past Drug Use History: None Reported - Past Family History Brother(s) Family Medical History: No Reported History Mother Family Medical History: Cancer, Diabetes Mellitus, Hypertension Additional Family Medical History / Comment(s): Mother of throat cancer at the age of 63 yrs. She was a smoker. Father Family Medical History: Coronary Artery Disease (CAD), Hyperlipidemia, Hypertension Additional Family Medical History / Comment(s): Father is 70 yrs old. Medications and Allergies Home Medications Medication Instructions Recorded Confirmed Type Atorvastatin [Lipitor] 40 mg PO HS 09/14/15 10/06/17 History Cyclobenzaprine [Flexeril] 5 mg PO HS 09/14/15 10/06/17 History Magnesium Gluconate [Magonate] 500 mg PO BID 09/14/15 10/06/17 History Furosemide [Lasix] 40 mg PO BID 03/12/16 10/06/17 History Insulin Glargine [Lantus] 80 unit SQ HS 04/18/16 10/06/17 History Prochlorperazine [Compazine] 10 mg PO BID PRN 05/14/16 10/06/17 History hydrALAZINE HCL [Apresoline] 100 mg PO TID #180 tab 06/10/16 10/06/17 Rx Sevelamer [Renvela] 2,400 mg PO AC-TID 12/16/16 10/06/17 History cloNIDine HCL 0.3 mg PO TID 12/16/16 10/06/17 History rOPINIRole HCL [Requip] 1 mg PO TID 02/07/17 10/06/17 History Levocarnitine (with Sugar) 300 mg PO BID #118 ml 02/11/17 10/06/17 Rx [Levocarnitine 1 G/10 ml Oral Soln] B Complex W-C No.20/Folic Acid 1 mg PO DAILY 08/21/17 10/06/17 History [Renal Caps Softgel] Gabapentin [Neurontin] 100 mg PO TID 08/21/17 10/06/17 History Lactulose [Constulose] 10 gm PO TID PRN 08/21/17 10/06/17 History Sevelamer [Renvela] 800 mg PO BID PRN 08/21/17 10/06/17 History traMADol HCl [Ultram] 50 mg PO Q4H PRN 08/21/17 10/06/17 History Erythromycin Base [Erythromycin] 1 applic RIGHT EYE BID 09/21/17 10/06/17 History Lidocaine-Prilocaine Cream [Emla 1 applic TOPICAL DAILY PRN 09/21/17 10/06/17 History Cream 2.5%/2.5%] HYDROcodone/APAP 5-325MG [[place] 1 tab PO Q8HR PRN #45 tab 09/24/17 10/06/17 Rx 5-325] Metoprolol Tartrate [Lopressor] 50 mg PO DAILY tab 09/24/17 10/06/17 Rx INSULIN LISPRO (HumaLOG) [HumaLOG] 16 - 20 units SQ ACHS 10/06/17 10/06/17 History INSULIN LISPRO (HumaLOG) [HumaLOG] See Protocol SQ ACHS PRN 10/06/17 10/06/17 History amLODIPine [Norvasc] 10 mg PO DAILY@1200 10/06/17 10/06/17 History Allergies Allergy/AdvReac Type Severity Reaction Status Date / Time ciprofloxacin [From Cipro] AdvReac AFFECTED Verified 10/06/17 08:49 EYESIGHT ciprofloxacin HCl AdvReac AFFECTED Verified 10/06/17 08:49 [From Cipro] EYESIGHT Iodinated Contrast- Oral and AdvReac RENAL Verified 10/06/17 08:49 IV Dye FAILURE Physical Exam Vitals: Vital Signs Temp Pulse Pulse Resp BP BP Pulse Ox 10/06/17 09:50 98.4 F 83 18 167/79 96 10/06/17 04:40 96.9 F L 83 18 158/76 91 L 10/05/17 23:50 98.1 F 90 18 188/88 91 L 10/05/17 22:25 97.8 F 91 18 189/86 91 L 10/05/17 22:05 98.4 F 91 18 177/84 97 10/05/17 20:24 89 18 193/86 95 10/05/17 19:18 98.5 F 91 18 188/86 96 Intake and Output 10/05/17 10/06/17 10/06/17 22:59 06:59 14:59 Intake Total 180 Output Total 50 Balance -50 180 Intake: Oral 180 Output: Urine 50 Other: Voiding Method Bedside Commode Toilet Diaper Diaper # Voids 1 1 Weight 80.3 kg 80.3 kg PHYSICAL EXAMINATION GENERAL:This is a 52-year-old female in no apparent distress at the time of our examination. HEENT: Head is atraumatic, normocephalic. Pupils equal, round. Sclera anicteric. Conjunctiva are clear. Mucous membranes of the mouth are moist. Neck is supple. There is no elevated jugular venous pressure.] bruit is heard. HEART EXAMINATION: [Heart S1, S2 normal. No murmur or gallop heard.] CHEST EXAMINATION: Lungs are clear to auscultation. ABDOMEN: [ Soft, nontender. Bowel sounds are heard. No organomegaly noted]. EXTREMITIES:[ 2+ peripheral pulses with no evidence of peripheral edema and no calf tenderness noted]. NEUROLOGIC [patient is awake, alert and oriented -3.] . Results 10/05/17 19:25 10/05/17 19:25 Cardiac Enzymes 10/05/17 10/05/17 Range/Units 19:25 19:25 AST 60 H (14-36) U/L CK-MB (CK-2) 2.4 (0.0-2.4) ng/mL Troponin I 0.015 (0.000-0.034) ng/mL Coagulation 10/05/17 Range/Units 19:25 PT 9.6 (9.0-12.0) sec APTT 22.1 (22.0-30.0) sec CBC 10/05/17 Range/Units 19:25 WBC 6.1 (3.8-10.6) k/uL RBC 2.45 L (3.80-5.40) m/uL Hgb 8.3 L (11.4-16.0) gm/dL Hct 24.5 L (34.0-46.0) % Plt Count 142 L (150-450) k/uL Comprehensive Metabolic Panel 10/05/17 Range/Units 19:25 Sodium 132 L (137-145) mmol/L Potassium 6.1 H (3.5-5.1) mmol/L Chloride 89 L (98-107) mmol/L Carbon Dioxide 24 (22-30) mmol/L BUN 83 H* (7-17) mg/dL Creatinine 8.79 H* (0.52-1.04) mg/dL Glucose 307 H (74-99) mg/dL Calcium 8.7 (8.4-10.2) mg/dL AST 60 H (14-36) U/L ALT 76 H (9-52) U/L Alkaline Phosphatase 151 H (38-126) U/L Total Protein 6.6 (6.3-8.2) g/dL Albumin 4.3 (3.5-5.0) g/dL Current Medications Generic Name Dose Route Start Last Admin Trade Name Freq PRN Reason Stop Dose Admin Hydrocodone Bitart/Acetaminophen 1 each 10/05/17 22:54 10/06/17 10:07 [place] 5-325 PO 1 each Q8HR PRN Administration Pain Amlodipine Besylate 10 mg 10/06/17 12:00 Norvasc PO 1200 ANNI Aspirin 325 mg 10/06/17 09:00 10/06/17 10:08 Aspirin PO 325 mg DAILY ANNI Administration Atorvastatin Calcium 40 mg 10/05/17 23:00 10/05/17 23:56 Lipitor PO 40 mg HS ANNI Administration Clonidine 0.3 mg 10/05/17 23:00 10/06/17 10:08 Catapres PO 0.3 mg TID ANNI Administration Cyclobenzaprine HCl 5 mg 10/05/17 23:00 10/05/17 23:56 Flexeril PO 5 mg HS ANNI Administration Darbepoetin Drew 40 mcg 10/06/17 09:00 10/06/17 10:44 Aranesp SQ 40 mcg Q7D ANNI Administration Erythromycin 1 applic 10/06/17 09:00 Romycin Ophth Oint RIGHT EYE BID ANNI Furosemide 80 mg 10/06/17 09:00 10/06/17 10:10 Lasix IV 80 mg Q12HR ANNI Administration Gabapentin 100 mg 10/05/17 23:00 10/06/17 10:10 Neurontin PO 100 mg TID ANNI Administration Hydralazine HCl 100 mg 10/06/17 09:00 10/06/17 10:10 Apresoline PO 100 mg TID ANNI Administration Insulin Aspart 0 unit 10/05/17 22:59 10/06/17 06:58 Novolog SQ Not Given ACHS [facility] Protocol Insulin Detemir 80 unit 10/05/17 23:00 10/05/17 23:56 Levemir SQ 80 unit HS [facility] Administration Lactulose 10 gm 10/05/17 22:54 Cephulac PO TID PRN Constipation Lidocaine/Prilocaine 1 applic 10/06/17 09:14 Emla Cream 2.5%/2.5% TOPICAL DAILY PRN apply prior to dialysis Magnesium Oxide 200 mg 10/06/17 09:00 10/06/17 10:11 Mag-Ox PO 200 mg DAILY ANNI Administration Metoprolol Tartrate 50 mg 10/06/17 09:00 10/06/17 10:11 Lopressor PO 50 mg DAILY [facility] Administration Multivit/Ca Carb/B Cmplx/FA/Prenat 1 each 10/06/17 09:00 10/06/17 10:10 Nephrocaps PO 1 each DAILY ANNI Administration Nitroglycerin 1 inch 10/06/17 01:00 10/06/17 07:00 Nitro-Bid Oint TOPICAL 1 inch Q6HR ANNI Administration Pantoprazole Sodium 40 mg 10/06/17 07:30 10/06/17 07:00 Protonix PO 40 mg AC-BRKFST ANNI Administration Ropinirole HCl 1 mg 10/05/17 23:00 10/06/17 10:11 Requip PO 1 mg TID ANNI Administration Sevelamer Carbonate 800 mg 10/05/17 22:54 Renvela PO BID PRN SNACKS Sevelamer Carbonate 2,400 mg 10/06/17 07:30 10/06/17 07:00 Renvela PO 2,400 mg AC-TID ANNI Administration Intake and Output 10/05/17 10/06/17 10/06/17 22:59 06:59 14:59 Intake Total 180 Output Total 50 Balance -50 180 Intake: Oral 180 Output: Urine 50 Other: Voiding Method Bedside Commode Toilet Diaper Diaper # Voids 1 1 Weight 80.3 kg 80.3 kg 10/05/17 19:25 10/05/17 19:25 EKG Interpretations (text) EKG shows normal sinus rhythm with incomplete right bundle branch block pattern and nonspecific ST-T wave changes Assessment and Plan Plan: Assessment and plan #1 symptoms of acute dyspnea with acute fluid overload in a patient with preserved systolic function, consistent with diastolic dysfunction, related to hypertension and lack of sufficient fluid taken off on dialysis. #2 end-stage renal disease on hemodialysis, awaiting to be put on transplant list. #3 hypertension, accelerated #4 hyperlipidemia #5 diabetes, uncontrolled #6 history of pancreatitis #7 chronic anemia Plan Patient recently had an echo performed which revealed normal left ventricular systolic function, so we will not repeat an echo this admission. We'll continue current dose of IV Lasix. Discontinue when necessary Vasotec and add Norvasc to the medication regime. DNP note has been reviewed, I agree with a documented findings and plan of care. Patient was seen and examined.
[2017-10-06 12:09] LABS: Glucose,Whole Blood 200 mg/dL (75-99)
[2017-10-06] MEDS: amLODIPine 10 MG TAB PO SCH (12:39)
--- NOTE | 2017-10-06 14:01 | HP ---
HISTORY AND PHYSICAL CHIEF COMPLAINT: A 52-year-old white female who apparently is not getting enough fluid drawn off in dialysis. She came in with severe shortness of breath and fluid overload. She is on the transplant list at [facility]. She is still getting dialysis, but they did not increase the dry weight she states on her dialysis like she was supposed to have on her last admission. Dr. Jonas she states is taking care of this at this time. She came in with oxygen 4 L, oxygen 91%. White count 6.1, hemoglobin 8.3, platelets 142, with sodium 132, potassium 6.1, BUN 83, creatinine 8.7. Sugars are 333. She has insulin-dependent diabetes mellitus. Blood pressure was 180s/80s on admission also. [facility] has been increased for blood pressure on admission here due to elevated hypertension. PAST MEDICAL HISTORY: End-stage renal disease, diabetes mellitus, dyslipidemia, dyslipidemia, liver disease, hypertension, bilateral retinal hemorrhages, bilateral cataracts, acute kidney injury x2 months, chronic kidney disease, chronic anemia. SURGICAL HISTORY: Colonoscopy, polypectomy, pancreatic resection, bone marrow biopsies x2, dialysis as mentioned above. Left arm shunt placement, chest arm port x2. 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 She is independent. She is a lifelong nonsmoker. No alcohol. FAMILY HISTORY: Brothers and sisters, brother negative. Mother, diabetes mellitus, cancer, hypertension. Father with coronary artery disease, dyslipidemia, hypertension. HOME MEDICATIONS: 1. Lasix 40 mg b.i.d. 2. Magnesium gluconate 500 b.i.d. 3. Flexeril 5 mg daily. 4. Lipitor 40 mg daily. 5. Lantus 80 units daily. 6. Hydralazine 100 mg t.i.d. 7. Renvela 2400 mg t.i.d. 8. Clonidine 0.3 mg t.i.d. 9. Requip 1 mg t.i.d. 10.Levocarnitine. 11.B complex vitamin. 12.Neurontin 100 t.i.d. 13.Renvela 800 b.i.d. 14.Tramadol 50 q.4 hours p.r.n. 15.Lidocaine cream. 16.[place] 5/325 q.8 hours p.r.n. 17.Lopressor 50 daily. 18.Humalog a.c. and bedtime. 19.Amlodipine 10 mg daily. ALLERGIES: CIPRO, OFLOXACIN. Temp 98.4, pulse 83, respirations 16 to 18, O2 blood pressure 160s to 180s/60s, 70s to 80s, O2 is 91% to 96% on room air. CARDIOVASCULAR: S1, S2. Lungs show rales at the bases. HEMATOLOGY: Negative Homans. 2+ pedal edema bilaterally. PSYCHIATRIC, NEUROLOGIC: Alert and oriented x3. Fair mood and affect. Lungs are clear. Labs are mentioned above. Hemoglobin is 8.3. Blood pressure medicines was addressed. ASSESSMENT: 1. Acute fluid overload in a patient alert with acute diastolic dysfunction. 2. Hypertension. 3. Insulin-dependent dependent diabetes mellitus. 4. End-stage renal disease. 5. Dyslipidemia. 6. Diabetes mellitus. 7. History of pancreatitis. 8. Hyperkalemia. PLAN: Continue with IV Lasix, diuresis increasing. Cardiology and Nephrology consult. MMODL / DARVINN: [id number] /
[2017-10-06 14:22] LABS: Glucose,Whole Blood 295 mg/dL (75-99)
[2017-10-06 14:33] LABS: Hemoglobin A1C 5.7 % (4.0-6.0)
[2017-10-06] MEDS: LIDOCAINE-PRILOCAINE 2.5-2.5% CREAM 5 GM TUBE TOPICAL PRN (15:20)
[2017-10-06] MEDS: ONDANSETRON 4 MG/2 ML VIAL IVP PRN (15:20)
[2017-10-06 16:49] LABS: Iron Saturation 16.01 (12.00-45.00)
[2017-10-06 17:15] LABS: Glucose,Whole Blood 177 mg/dL (75-99)
[2017-10-06 19:50] LABS: Glucose,Whole Blood 125 mg/dL (75-99)
[2017-10-06 20:46] LABS: Glucose,Whole Blood 160 mg/dL (75-99)
[2017-10-06] MEDS: CYCLOBENZAPRINE 5 MG TAB PO SCH (21:07)
[2017-10-06] MEDS: ATORVASTATIN 40 MG TAB PO SCH (21:07)
[2017-10-06] MEDS: ERYTHROMYCIN 5 MG/GM OPHTH OINT 3.5 GM TUBE RIGHT EYE SCH (21:08)
[2017-10-06] MEDS: INSULIN DETEMIR 100 UNIT/ML 10 ML VIAL SQ SCH (21:09)
[2017-10-07] MEDS: HYDROcodone/APAP 5-325MG 1 EACH TAB PO PRN ×3 (02:03→17:38)
[2017-10-07 05:50] LABS: Glucose,Whole Blood 127 mg/dL (75-99)
[2017-10-07] MEDS: INSULIN ASPART 100 UNIT/ML 1 ML 10 ML VIAL SQ SCH ×7 (05:55→20:03)
[2017-10-07] MEDS: ONDANSETRON 4 MG/2 ML VIAL IVP PRN ×2 (05:56→11:34)
[2017-10-07] MEDS: SEVELAMER 800 MG TAB PO SCH ×3 (05:57→20:05)
[2017-10-07] MEDS: NITROGLYCERIN OINT 1 INCH/GM PACKET TOPICAL SCH ×4 (05:57→21:32)
[2017-10-07] MEDS: PANTOPRAZOLE 40 MG TABLET PO SCH (06:00)
[2017-10-07 06:34] LABS: Anisocytosis Slight; Basophils % (A) 1 %; Eosinophils # (A) 0.1 k/uL (0-0.7); Eosinophils % (A) 2 %; Hypochromasia Slight; Lymphocytes # (A) 0.5 k/uL (1.0-4.8); Lymphocytes % (A) 16 %; MCH 32.4 pg (25.0-35.0); MCHC 31.7 g/dL (31.0-37.0); MCV 102.2 fL (80.0-100.0); Macrocytosis Moderate; Monocytes # (A) 0.1 k/uL (0-1.0); Monocytes % (A) 5 %; Neutrophils # (A) 2.2 k/uL (1.3-7.7); Neutrophils % (A) 75 %; Platelet Count 113 k/uL (150-450); Poikilocytosis Slight; RBC 1.85 m/uL (3.80-5.40); RDW 19.9 % (11.5-15.5)
[2017-10-07 06:46] LABS: HCT 18.9 % (34.0-46.0)
[2017-10-07 06:51] LABS: Albumin 3.9 g/dL (3.5-5.0); Calcium 8.8 mg/dL (8.4-10.2); Potassium 5.5 mmol/L (3.5-5.1); Total Bilirubin 0.8 mg/dL (0.2-1.3); Total Protein 6.2 g/dL (6.3-8.2)
[2017-10-07] MEDS: FUROSEMIDE 10 MG/ML 10 ML VIAL IV SCH ×2 (07:59→20:06)
[2017-10-07] MEDS: ASPIRIN 325 MG TAB PO SCH (07:59)
[2017-10-07] MEDS: MAGNESIUM OXIDE 400 MG TAB PO SCH (08:00)
[2017-10-07] MEDS: FOLIC ACID-VIT B COMPLEX-VIT C 1 CAP PO SCH (08:00)
[2017-10-07] MEDS: GABAPENTIN 100 MG CAP PO SCH ×3 (08:00→20:10)
[2017-10-07] MEDS: hydrALAZINE HCL 50 MG TAB PO SCH ×3 (08:00→20:10)
[2017-10-07] MEDS: METOPROLOL TARTRATE 50 MG TAB PO SCH (08:01)
[2017-10-07] MEDS: cloNIDine HCL 0.1 MG TAB PO SCH ×3 (08:01→20:10)
[2017-10-07] MEDS: ERYTHROMYCIN 5 MG/GM OPHTH OINT 3.5 GM TUBE RIGHT EYE SCH ×2 (08:01→20:05)
--- NOTE | 2017-10-07 09:07 | P.PN ---
Subjective Patient is seen in follow-up for end-stage renal disease. She is maintained on hemodialysis on a Thursday schedule via left upper extremity AV fistula. Patient presented with dyspnea and fluid overload. She underwent hemodialysis yesterday with 4 L ultrafiltration and feels better today. However her hemoglobin is down to 6.0. She denies any melena or hematochezia. No hemoptysis. Denies chest pain. Feels tired. Vital signs are stable. General: The patient appeared well nourished and normally developed. HEENT: Head exam is unremarkable. Neck is without jugular venous distension. LUNGS: Lungs are clear to auscultation and percussion. Breath sounds decreased. HEART: Rate and Rhythm are regular. First and second heart sounds normal. No murmurs, rubs or gallops. ABDOMEN: Abdominal exam reveals normal bowel sounds. Non-tender and non- distended. No evidence of peritonitis. EXTREMITITES: No clubbing, cyanosis, or edema. Objective - Vital Signs Vital signs: Vital Signs Temp 98.5 F 10/07/17 07:54 Pulse 78 10/07/17 07:54 Resp 16 10/07/17 08:00 BP 136/61 10/07/17 07:54 Pulse Ox 97 10/07/17 07:54 Intake & Output 10/06/17 10/07/17 10/07/17 18:59 06:59 18:59 Intake Total 410 30 240 Output Total 1050 Balance -640 30 240 Weight 80.3 kg 77.8 kg Intake: IV 30 0.9 Flush 30 Oral 410 240 Output: Urine 1050 Other: Voiding Method Toilet Toilet Toilet Diaper # Voids 1 - Labs CBC & Chem 7: 10/07/17 06:08 10/07/17 06:08 Labs: Abnormal Lab Results - Last 24 Hours (Table) 10/06/17 10/06/17 10/06/17 Range/Units 09:37 11:58 14:17 WBC (3.8-10.6) k/uL RBC (3.80-5.40) m/uL Hgb (11.4-16.0) gm/dL Hct (34.0-46.0) % MCV (80.0-100.0) fL RDW (11.5-15.5) % Plt Count (150-450) k/uL Lymphocytes # (1.0-4.8) k/uL Sodium (137-145) mmol/L Potassium (3.5-5.1) mmol/L Chloride (98-107) mmol/L BUN (7-17) mg/dL Creatinine (0.52-1.04) mg/dL Glucose (74-99) mg/dL POC Glucose (mg/dL) 200 H 295 H (75-99) mg/dL Iron 45 L (50-170) ug/dL Ferritin 1166.3 H (10.0-291.0) ng/mL Total Protein (6.3-8.2) g/dL 10/06/17 10/06/17 10/06/17 Range/Units 17:13 19:48 20:44 WBC (3.8-10.6) k/uL RBC (3.80-5.40) m/uL Hgb (11.4-16.0) gm/dL Hct (34.0-46.0) % MCV (80.0-100.0) fL RDW (11.5-15.5) % Plt Count (150-450) k/uL Lymphocytes # (1.0-4.8) k/uL Sodium (137-145) mmol/L Potassium (3.5-5.1) mmol/L Chloride (98-107) mmol/L BUN (7-17) mg/dL Creatinine (0.52-1.04) mg/dL Glucose (74-99) mg/dL POC Glucose (mg/dL) 177 H 125 H 160 H (75-99) mg/dL Iron (50-170) ug/dL Ferritin (10.0-291.0) ng/mL Total Protein (6.3-8.2) g/dL 10/07/17 10/07/17 10/07/17 Range/Units 05:48 06:08 06:08 WBC 3.0 L (3.8-10.6) k/uL RBC 1.85 L (3.80-5.40) m/uL Hgb 6.0 L* D (11.4-16.0) gm/dL Hct 18.9 L* (34.0-46.0) % MCV 102.2 H (80.0-100.0) fL RDW 19.9 H (11.5-15.5) % Plt Count 113 L (150-450) k/uL Lymphocytes # 0.5 L (1.0-4.8) k/uL Sodium 136 L (137-145) mmol/L Potassium 5.5 H (3.5-5.1) mmol/L Chloride 94 L (98-107) mmol/L BUN 54 H (7-17) mg/dL Creatinine 6.86 H* (0.52-1.04) mg/dL Glucose 110 H (74-99) mg/dL POC Glucose (mg/dL) 127 H (75-99) mg/dL Iron (50-170) ug/dL Ferritin (10.0-291.0) ng/mL Total Protein 6.2 L (6.3-8.2) g/dL Assessment and Plan Plan: Assessment: 1. End-stage renal disease maintained on hemodialysis on a Thursday schedule via left upper extremity AV fistula. 2. Volume overload. Improved postdialysis. 3. Diastolic CHF with moderate pulmonary hypertension. 4. Chronic kidney disease mineral bone disease maintained on Renvela. Phosphorus level at goal. 5. Hypertension with chronic kidney disease. Partially volume sensitive. Controlled. 6. Anemia of chronic kidney disease with underlying myelodysplastic disease status post extensive workup and multiple blood transfusions. 7. Hyperkalemia secondary to chronic kidney disease and hyperglycemia. Expect improvement postdialysis. 8. Hypervolemic hyponatremia. Improved. Plan: Hemodialysis today with goal 3 L ultrafiltration. Maintain Aranesp. Maintain IV Lasix. Transfuse 2 units of packed red blood cells with dialysis. Will lower her dry weight outpatient.
[2017-10-07 11:33] LABS: Glucose,Whole Blood 194 mg/dL (75-99)
--- NOTE | 2017-10-07 14:34 | PN ---
PROGRESS NOTE SUBJECTIVE: 52-year-old white female with severe anemia, hemoglobin 6 awaiting for blood transfusion with dialysis today. She is supposed to get 2 units of blood. White count is 3, platelet count 113, sodium 136, potassium 5.5, BUN is 54, creatinine 6.86. She is up in bed. She states she needs more fluid drained off her during dialysis due to her erroneous dry weight being reported by renal dialysis center and not getting enough fluid off her. She has had recurrent admissions for the same problem. Hemoglobin is down to 6, awaiting blood transfusion at this time. Sitting up in bed. Giving appropriate responses. Pulse 69 to 78, temp 98, blood pressure 125 to 136 over 60s, O2 sats 96 to 97% on 2 L. Cardiovascular: S1, S2. Lungs: Clear. GI: Increased bowel sounds. Hematology negative Homans. Heart S1, S2. Lungs are clear. GI soft. Hematology: Negative Homans. Vital signs are reviewed. Labs are reviewed. ASSESSMENT: 1. Severe anemia and diastolic congestive heart failure, fluid overload, feels tired and shows no signs of bleeding. 2. End-stage renal disease. 3. Volume overload. 4. Diastolic congestive heart failure. 5. Moderate pulmonary hypertension. 6. Chronic renal disease. 7. Mineral bone disease on Renvela. 8. Phosphorus level at goal. 9. Hypertension. 10.End-stage renal disease. 11.Anemia of chronic disease. 12.Possibly myelodysplastic disease. 13.Multiple blood transfusions. 14.Multiple workups. 15.Dyslipidemia. 16.Hyperglycemic hyponatremia. 17.Continue with dialysis. 18.Aranesp. 19.IV Lasix. 20.Transfuse 2 units with dialysis. 21.CBC and Chem panel in the morning. MMODL / IJN: [id number] /
--- NOTE | 2017-10-07 15:01 | P.PN ---
Subjective Progress Note Date: 10/07/17 This is a 52-year-old female with known history of chronic kidney disease, going through the process to be put on transplant list at [facility], she is on hemodialysis, diabetes, hypertension, hyperlipidemia, anemia, who presented to the hospital with symptoms of fairly sudden onset of shortness of breath. EKG on presentation here showed a normal sinus rhythm with incomplete right bundle branch block pattern and nonspecific ST-T wave changes. Chest x- ray showed little if any interval change as compared with chest x-ray 4 days prior. Blood pressure 156/76 with a heart rate in the 80s, 91% on 4 L of oxygen. White blood cell count 6.1, hemoglobin 8.3, platelet count 142. Sodium 132, potassium 6.1, BUN 83, creatinine 8.7. Glucose on arrival 333. AST 60, ALT 76, alk phos 151, troponin 0.015, BNP 7310. Blood pressure on arrival 188/86, heart rate in the 90s, temperature 98.5, 96% on room air. Blood pressure this morning 166/78, heart rate in the 80s. Patient is scheduled to have 4 L of fluid taken off by dialysis today, she also stated that Dr. Jones will suggest increase in the amount of fluid taken off on a regular basis at her outpatient dialysis. We will start the patient on Norvasc 5 mg twice a day and discontinue the when necessary PRABHA inhibitor this morning. Recent echo performed last month revealed a normal left ventricular systolic function. 10/07/2017 Patient seen and examined this morning. She did have 4 L taken off yesterday, her hemoglobin today is down to 6 she will receive 2 units of packed red blood cells and again undergo dialysis prior to discharge tomorrow. Cardiology's perspective, we will recommend reviewing current medications. Follow-up in the office post discharge. Objective - Vital Signs Vital signs: Vital Signs Temp 97.4 F L 10/07/17 14:44 Pulse 69 10/07/17 14:46 Resp 16 10/07/17 14:46 BP 126/62 10/07/17 14:44 Pulse Ox 99 10/07/17 14:44 Intake & Output 10/06/17 10/07/17 10/07/17 18:59 06:59 18:59 Intake Total 410 30 860 Output Total 1050 Balance -640 30 860 Weight 80.3 kg 77.8 kg Intake: IV 30 0.9 Flush 30 Oral 410 860 Output: Urine 1050 Other: Voiding Method Toilet Toilet Toilet Diaper # Voids 1 - Exam PHYSICAL EXAMINATION GENERAL:This is a 52-year-old female in no apparent distress at the time of our examination. HEENT: Head is atraumatic, normocephalic. Pupils equal, round. Sclera anicteric. Conjunctiva are clear. Mucous membranes of the mouth are moist. Neck is supple. There is no elevated jugular venous pressure.] bruit is heard. HEART EXAMINATION: [Heart S1, S2 normal. No murmur or gallop heard.] CHEST EXAMINATION: Lungs are clear to auscultation. ABDOMEN: [ Soft, nontender. Bowel sounds are heard. No organomegaly noted]. EXTREMITIES:[ 2+ peripheral pulses with no evidence of peripheral edema and no calf tenderness noted]. NEUROLOGIC [patient is awake, alert and oriented -3.] . - Labs CBC & Chem 7: 10/07/17 06:08 10/07/17 06:08 Labs: Abnormal Lab Results - Last 24 Hours (Table) 10/06/17 10/06/17 10/06/17 Range/Units 09:37 17:13 19:48 WBC (3.8-10.6) k/uL RBC (3.80-5.40) m/uL Hgb (11.4-16.0) gm/dL Hct (34.0-46.0) % MCV (80.0-100.0) fL RDW (11.5-15.5) % Plt Count (150-450) k/uL Lymphocytes # (1.0-4.8) k/uL Sodium (137-145) mmol/L Potassium (3.5-5.1) mmol/L Chloride (98-107) mmol/L BUN (7-17) mg/dL Creatinine (0.52-1.04) mg/dL Glucose (74-99) mg/dL POC Glucose (mg/dL) 177 H 125 H (75-99) mg/dL Iron 45 L (50-170) ug/dL Ferritin 1166.3 H (10.0-291.0) ng/mL Total Protein (6.3-8.2) g/dL Crossmatch 10/06/17 10/07/17 10/07/17 Range/Units 20:44 05:48 06:08 WBC 3.0 L (3.8-10.6) k/uL RBC 1.85 L (3.80-5.40) m/uL Hgb 6.0 L* D (11.4-16.0) gm/dL Hct 18.9 L* (34.0-46.0) % MCV 102.2 H (80.0-100.0) fL RDW 19.9 H (11.5-15.5) % Plt Count 113 L (150-450) k/uL Lymphocytes # 0.5 L (1.0-4.8) k/uL Sodium (137-145) mmol/L Potassium (3.5-5.1) mmol/L Chloride (98-107) mmol/L BUN (7-17) mg/dL Creatinine (0.52-1.04) mg/dL Glucose (74-99) mg/dL POC Glucose (mg/dL) 160 H 127 H (75-99) mg/dL Iron (50-170) ug/dL Ferritin (10.0-291.0) ng/mL Total Protein (6.3-8.2) g/dL Crossmatch 10/07/17 10/07/17 10/07/17 Range/Units 06:08 07:45 11:31 WBC (3.8-10.6) k/uL RBC (3.80-5.40) m/uL Hgb (11.4-16.0) gm/dL Hct (34.0-46.0) % MCV (80.0-100.0) fL RDW (11.5-15.5) % Plt Count (150-450) k/uL Lymphocytes # (1.0-4.8) k/uL Sodium 136 L (137-145) mmol/L Potassium 5.5 H (3.5-5.1) mmol/L Chloride 94 L (98-107) mmol/L BUN 54 H (7-17) mg/dL Creatinine 6.86 H* (0.52-1.04) mg/dL Glucose 110 H (74-99) mg/dL POC Glucose (mg/dL) 194 H (75-99) mg/dL Iron (50-170) ug/dL Ferritin (10.0-291.0) ng/mL Total Protein 6.2 L (6.3-8.2) g/dL Crossmatch See Detail Assessment and Plan Plan: Assessment and plan #1 symptoms of acute dyspnea with acute fluid overload in a patient with preserved systolic function, consistent with diastolic dysfunction, related to hypertension and lack of sufficient fluid taken off on dialysis. #2 end-stage renal disease on hemodialysis, awaiting to be put on transplant list. #3 hypertension, accelerated #4 hyperlipidemia #5 diabetes, uncontrolled #6 history of pancreatitis #7 chronic anemia Plan Patient recently had an echo performed which revealed normal left ventricular systolic function, so we will not repeat an echo this admission. Patient will receive 2 units of packed red blood cells today, she will also undergo one more dialysis treatment prior to discharge tomorrow. We will make her a follow-up appointment in the office post discharge. DNP note has been reviewed, I agree with a documented findings and plan of care. Patient was seen and examined.
[2017-10-07] MEDS: LIDOCAINE-PRILOCAINE 2.5-2.5% CREAM 5 GM TUBE TOPICAL PRN (15:07)
[2017-10-07 16:47] LABS: Glucose,Whole Blood 161 mg/dL (75-99)
[2017-10-07] MEDS: amLODIPine 10 MG TAB PO SCH (19:04)
[2017-10-07 19:54] LABS: Glucose,Whole Blood 114 mg/dL (75-99)
[2017-10-07] MEDS: ATORVASTATIN 40 MG TAB PO SCH (20:05)
[2017-10-07] MEDS: CYCLOBENZAPRINE 5 MG TAB PO SCH (20:05)
[2017-10-07] MEDS: INSULIN DETEMIR 100 UNIT/ML 10 ML VIAL SQ SCH (20:05)
[2017-10-08 05:52] LABS: Glucose,Whole Blood 166 mg/dL (75-99)
[2017-10-08 06:18] LABS: Anisocytosis Slight; Basophils % (A) 1 %; Eosinophils # (A) 0.1 k/uL (0-0.7); Eosinophils % (A) 2 %; HCT 23.1 % (34.0-46.0); Lymphocytes # (A) 0.4 k/uL (1.0-4.8); Lymphocytes % (A) 14 %; MCH 33.6 pg (25.0-35.0); MCHC 34.1 g/dL (31.0-37.0); MCV 98.8 fL (80.0-100.0); Macrocytosis Slight; Mean Platelet Volume 7.5; Monocytes # (A) 0.2 k/uL (0-1.0); Monocytes % (A) 6 %; Neutrophils # (A) 2.5 k/uL (1.3-7.7); Neutrophils % (A) 77 %; RBC 2.33 m/uL (3.80-5.40); RDW 18.7 % (11.5-15.5); WBC 3.2 k/uL (3.8-10.6)
[2017-10-08] MEDS: SEVELAMER 800 MG TAB PO SCH ×3 (06:21→17:17)
[2017-10-08] MEDS: PANTOPRAZOLE 40 MG TABLET PO SCH (06:21)
[2017-10-08] MEDS: NITROGLYCERIN OINT 1 INCH/GM PACKET TOPICAL SCH ×3 (06:21→16:21)
[2017-10-08 06:24] LABS: HGB 7.9 gm/dL (11.4-16.0)
[2017-10-08 06:29] LABS: Albumin 3.5 g/dL (3.5-5.0); Calcium 8.4 mg/dL (8.4-10.2); Potassium 5.3 mmol/L (3.5-5.1); Total Bilirubin 0.7 mg/dL (0.2-1.3); Total Protein 5.8 g/dL (6.3-8.2)
[2017-10-08] MEDS: ONDANSETRON 4 MG/2 ML VIAL IVP PRN ×2 (06:52→13:05)
[2017-10-08] MEDS: HYDROcodone/APAP 5-325MG 1 EACH TAB PO PRN ×2 (06:57→15:27)
[2017-10-08] MEDS: INSULIN ASPART 100 UNIT/ML 1 ML 10 ML VIAL SQ SCH ×6 (06:57→17:16)
[2017-10-08 08:27] LABS: Poikilocytosis (M) Present
[2017-10-08 08:28] LABS: Platelet Count 96 k/uL (150-450); Polychromasia Present
--- NOTE | 2017-10-08 09:41 | P.PN ---
Subjective Patient is seen in follow-up for end-stage renal disease. She is maintained on hemodialysis on a Thursday schedule via left upper extremity AV fistula. Patient presented with dyspnea and fluid overload. She had an extra treatment of hemodialysis yesterday and is feeling better today. She was seen while undergoing hemodialysis today. Hemoglobin is up to 7.9 after blood transfusion yesterday. She denies any melena or hematochezia. No hemoptysis. Denies chest pain. Vital signs are stable. General: The patient appeared well nourished and normally developed. HEENT: Head exam is unremarkable. Neck is without jugular venous distension. LUNGS: Lungs are clear to auscultation and percussion. Breath sounds decreased. HEART: Rate and Rhythm are regular. First and second heart sounds normal. No murmurs, rubs or gallops. ABDOMEN: Abdominal exam reveals normal bowel sounds. Non-tender and non- distended. No evidence of peritonitis. EXTREMITITES: No clubbing, cyanosis, or edema. Objective - Vital Signs Vital signs: Vital Signs Temp 98.0 F 10/08/17 08:00 Pulse 80 10/08/17 08:00 Resp 18 10/08/17 08:00 BP 177/91 10/08/17 08:00 Pulse Ox 100 10/08/17 08:35 Intake & Output 10/07/17 10/08/17 10/08/17 18:59 06:59 18:59 Intake Total 1480 20 150 Balance 1480 20 150 Weight 78.5 kg Intake: IV 20 0.9 Flush 20 Oral 860 150 Blood Product 620 Rc Irr As1 Unit 310 [id number] Rc Irr As1 Unit 310 [id number] Other: Voiding Method Toilet Toilet Toilet # Voids 1 - Labs CBC & Chem 7: 10/08/17 05:45 10/08/17 05:45 Labs: Abnormal Lab Results - Last 24 Hours (Table) 10/07/17 10/07/17 10/07/17 Range/Units 07:45 11:31 16:46 WBC (3.8-10.6) k/uL RBC (3.80-5.40) m/uL Hgb (11.4-16.0) gm/dL Hct (34.0-46.0) % RDW (11.5-15.5) % Plt Count (150-450) k/uL Lymphocytes # (1.0-4.8) k/uL Potassium (3.5-5.1) mmol/L Chloride (98-107) mmol/L BUN (7-17) mg/dL Creatinine (0.52-1.04) mg/dL Glucose (74-99) mg/dL POC Glucose (mg/dL) 194 H 161 H (75-99) mg/dL Total Protein (6.3-8.2) g/dL Crossmatch See Detail 10/07/17 10/08/17 10/08/17 Range/Units 19:52 05:45 05:45 WBC 3.2 L (3.8-10.6) k/uL RBC 2.33 L (3.80-5.40) m/uL Hgb 7.9 L D (11.4-16.0) gm/dL Hct 23.1 L (34.0-46.0) % RDW 18.7 H (11.5-15.5) % Plt Count 96 L (150-450) k/uL Lymphocytes # 0.4 L (1.0-4.8) k/uL Potassium 5.3 H (3.5-5.1) mmol/L Chloride 94 L (98-107) mmol/L BUN 46 H (7-17) mg/dL Creatinine 5.89 H* (0.52-1.04) mg/dL Glucose 172 H (74-99) mg/dL POC Glucose (mg/dL) 114 H (75-99) mg/dL Total Protein 5.8 L (6.3-8.2) g/dL Crossmatch 10/08/17 Range/Units 05:51 WBC (3.8-10.6) k/uL RBC (3.80-5.40) m/uL Hgb (11.4-16.0) gm/dL Hct (34.0-46.0) % RDW (11.5-15.5) % Plt Count (150-450) k/uL Lymphocytes # (1.0-4.8) k/uL Potassium (3.5-5.1) mmol/L Chloride (98-107) mmol/L BUN (7-17) mg/dL Creatinine (0.52-1.04) mg/dL Glucose (74-99) mg/dL POC Glucose (mg/dL) 166 H (75-99) mg/dL Total Protein (6.3-8.2) g/dL Crossmatch Assessment and Plan Plan: Assessment: 1. End-stage renal disease maintained on hemodialysis on a Thursday schedule via left upper extremity AV fistula. 2. Volume overload. Improved postdialysis. 3. Diastolic CHF with moderate pulmonary hypertension. 4. Chronic kidney disease mineral bone disease maintained on Renvela. Phosphorus level at goal. 5. Hypertension with chronic kidney disease. Partially volume sensitive. Controlled. 6. Anemia of chronic kidney disease with underlying myelodysplastic disease status post extensive workup and multiple blood transfusions. Status post blood transfusion on October 07. 7. Hyperkalemia secondary to chronic kidney disease and hyperglycemia. Expect improvement postdialysis. 8. Hypervolemic hyponatremia. Improved. Plan: Currently seen was undergoing hemodialysis. Next treatment on Thursday. Maintain Aranesp. I will change Lasix to 80 mg orally twice daily. Will lower her dry weight outpatient. Anticipate discharge soon.
[2017-10-08] MEDS: cloNIDine HCL 0.1 MG TAB PO SCH ×2 (11:47→16:19)
[2017-10-08] MEDS: FOLIC ACID-VIT B COMPLEX-VIT C 1 CAP PO SCH (11:47)
[2017-10-08] MEDS: ASPIRIN 325 MG TAB PO SCH (11:47)
[2017-10-08] MEDS: METOPROLOL TARTRATE 50 MG TAB PO SCH (11:48)
[2017-10-08] MEDS: MAGNESIUM OXIDE 400 MG TAB PO SCH (11:48)
[2017-10-08] MEDS: GABAPENTIN 100 MG CAP PO SCH ×2 (11:48→16:20)
[2017-10-08] MEDS: FUROSEMIDE 10 MG/ML 10 ML VIAL IV SCH (11:48)
[2017-10-08] MEDS: hydrALAZINE HCL 50 MG TAB PO SCH ×2 (11:48→16:20)
[2017-10-08] MEDS: amLODIPine 10 MG TAB PO SCH (11:49)
[2017-10-08 12:19] LABS: Glucose,Whole Blood 104 mg/dL (75-99)
[2017-10-08] MEDS: ERYTHROMYCIN 5 MG/GM OPHTH OINT 3.5 GM TUBE RIGHT EYE SCH (12:27)
[2017-10-08 13:16] LABS: Glucose,Whole Blood 181 mg/dL (75-99)
[2017-10-08 14:40] VITALS: BP 146/68; PULSE 75; RESP 16; TEMP 98.8
[2017-10-08] MEDS ORDERED: FUROSEMIDE 80 MG TAB PO SCH (16:00)
[2017-10-08 16:59] LABS: Glucose,Whole Blood 174 mg/dL (75-99)
== END 2017-10-08 19:08 | disposition home or self-care (01) | DRG 291 ==
LOC: EC 19:10 → 6SEL 21:18
PROVIDERS: ADMIT Family Medicine; ATTEND Family Medicine
PROC: 30233N1 Transfusion of Nonautologous Red Blood Cells into Peripheral Vein, Percutaneous Approach (ICD-10-PCS; principal; 2017-10-05)
PROC: 5A1D70Z Performance of Urinary Filtration, Intermittent, Less than 6 Hours Per Day (ICD-10-PCS; 2017-10-07)
DX: I13.2 Hypertensive heart and chronic kidney disease with heart failure and with stage 5 chronic kidney disease, or end stage renal disease (principal); I50.33 Acute on chronic diastolic (congestive) heart failure; N18.6 End stage renal disease; E87.1 Hypo-osmolality and hyponatremia; C94.6 Myelodysplastic disease, not elsewhere classified; D63.8 Anemia in other chronic diseases classified elsewhere; E11.22 Type 2 diabetes mellitus with diabetic chronic kidney disease; E78.1 Pure hyperglyceridemia; E78.5 Hyperlipidemia, unspecified; E11.65 Type 2 diabetes mellitus with hyperglycemia; E87.5 Hyperkalemia; I27.20 Pulmonary hypertension, unspecified; I45.10 Unspecified right bundle-branch block; Z76.82 Awaiting organ transplant status; Z79.4 Long term (current) use of insulin; Z79.899 Other long term (current) drug therapy; Z80.0 Family history of malignant neoplasm of digestive organs; Z82.49 Family history of ischemic heart disease and other diseases of the circulatory system; Z83.3 Family history of diabetes mellitus; Z99.2 Dependence on renal dialysis; Z79.891 Long term (current) use of opiate analgesic; Z88.1 Allergy status to other antibiotic agents; Z91.041 Radiographic dye allergy status; H26.9 Unspecified cataract; M89.9 Disorder of bone, unspecified
CPT/HCPCS: 36415; 71046; 80053; 82550; 82553; 82728; 83036; 83540; 83550; 83880; 84100; 84484; 85025; 85610; 85730; 86850; 86900; 86901; 86920; 90935; 93005; 94760; 96374; 96375; 99291

== ENCOUNTER 2017-10-22 19:06 | Emergency (ER) | payer OTHER ==
[2017-10-22] MEDS ORDERED: DIAZEPAM 5 MG/ML 2 ML INJ IVP STA (20:13)
[2017-10-22] MEDS ORDERED: ORPHENADRINE 30 MG/ML 2 ML VIAL IVP STA (20:13)
[2017-10-22] MEDS ORDERED: SODIUM CHLORIDE 0.9% 500 ML IV STA (20:13)
[2017-10-22] MEDS ORDERED: KETOROLAC 30 MG/ML 1 ML VIAL IVP STA (20:14)
[2017-10-22 20:25] VITALS: RESP 18
[2017-10-22 20:47] LABS: Albumin 4.4 g/dL (3.5-5.0); Phosphorus 2.7 mg/dL (2.5-4.5); Potassium 5.8 mmol/L (3.5-5.1); Total Bilirubin 0.8 mg/dL (0.2-1.3)
[2017-10-22 20:51] LABS: Anisocytosis Slight; Basophils % (A) 0 %; Eosinophils # (A) 0.1 k/uL (0-0.7); Eosinophils % (A) 2 %; HGB 8.8 gm/dL (11.4-16.0); Lymphocytes # (A) 0.4 k/uL (1.0-4.8); Lymphocytes % (A) 12 %; MCHC 33.8 g/dL (31.0-37.0); MCV 100.8 fL (80.0-100.0); Macrocytosis Slight; Mean Platelet Volume 7.2; Monocytes # (A) 0.2 k/uL (0-1.0); Monocytes % (A) 7 %; Neutrophils # (A) 2.5 k/uL (1.3-7.7); Neutrophils % (A) 78 %; Platelet Count 132 k/uL (150-450); RBC 2.58 m/uL (3.80-5.40); RDW 17.9 % (11.5-15.5); WBC 3.3 k/uL (3.8-10.6)
--- NOTE | 2017-10-22 20:53 | ED ---
General Adult HPI - General Chief complaint: Recheck/Abnormal Lab/Rx Stated complaint: feels strange post dialysis Time Seen by Provider: 10/22/17 19:47 Source: patient, RN notes reviewed, old records reviewed Mode of arrival: wheelchair Limitations: no limitations - History of Present Illness Initial comments: This is a 52-year-old female to the ER for evaluation. She presents today for evaluation regards to cramping abdominal cramping leg cramping and cramping. Patient is a dialysis patient should have dialysis today. Patient states she does suffer from severe cramps during dialysis. He sometimes has left-sided abnormalities. No medication that she takes and workup this point for cramping. Patient currently severed from cramps - Related Data Home Medications Medication Instructions Recorded Confirmed Atorvastatin [Lipitor] 40 mg PO HS 09/14/15 10/22/17 Cyclobenzaprine [Flexeril] 5 mg PO HS 09/14/15 10/22/17 Magnesium Gluconate [Magonate] 500 mg PO BID 09/14/15 10/22/17 Insulin Glargine [Lantus] 80 unit SQ HS 04/18/16 10/22/17 Prochlorperazine [Compazine] 5 mg PO BID PRN 05/14/16 10/22/17 Sevelamer [Renvela] 2,400 mg PO AC-TID 12/16/16 10/22/17 cloNIDine HCL 0.3 mg PO TID 12/16/16 10/22/17 rOPINIRole HCL [Requip] 1 mg PO TID 02/07/17 10/22/17 B Complex W-C No.20/Folic Acid 1 mg PO DAILY 08/21/17 10/22/17 [Renal Caps Softgel] Gabapentin [Neurontin] 100 mg PO TID 08/21/17 10/22/17 Lactulose [Constulose] 10 gm PO TID PRN 08/21/17 10/22/17 Sevelamer [Renvela] 800 mg PO DAILY PRN 08/21/17 10/22/17 traMADol HCl [Ultram] 50 mg PO Q4H PRN 08/21/17 10/22/17 Erythromycin Base [Erythromycin] 1 applic RIGHT EYE BID 09/21/17 10/22/17 Lidocaine-Prilocaine Cream [Emla 1 applic TOPICAL TUTHSA PRN 09/21/17 10/22/17 Cream 2.5%/2.5%] INSULIN LISPRO (HumaLOG) [HumaLOG] 16 units SQ AC-TID 10/06/17 10/22/17 INSULIN LISPRO (HumaLOG) [HumaLOG] See Protocol SQ ACHS PRN 10/06/17 10/22/17 amLODIPine [Norvasc] 10 mg PO DAILY 10/06/17 10/22/17 Cholecalciferol [Vitamin D3] 2,000 unit PO TUTHSA 10/22/17 10/22/17 Furosemide [Lasix] 80 mg PO BID 10/22/17 10/22/17 Metoprolol Tartrate [Lopressor] 50 mg PO BID 10/22/17 10/22/17 Omeprazole 20 mg PO DAILY 10/22/17 10/22/17 Vitamin E (Dl,Tocopheryl Acet) 400 unit PO DAILY 10/22/17 10/22/17 [Vitamin E] Previous Rx's Medication Instructions Recorded hydrALAZINE HCL [Apresoline] 100 mg PO TID #180 tab 06/10/16 Levocarnitine (with Sugar) 300 mg PO BID #118 ml 02/11/17 [Levocarnitine 1 G/10 ml Oral Soln] HYDROcodone/APAP 5-325MG [[place] 1 tab PO Q8HR PRN #45 tab 09/24/17 5-325] Allergies Allergy/AdvReac Type Severity Reaction Status Date / Time ciprofloxacin [From Cipro] AdvReac AFFECTED Verified 10/22/17 20:02 EYESIGHT ciprofloxacin HCl AdvReac AFFECTED Verified 10/22/17 20:02 [From Cipro] EYESIGHT Iodinated Contrast- Oral and AdvReac RENAL Verified 10/22/17 20:02 IV Dye FAILURE Review of Systems ROS Statement: Those systems with pertinent positive or pertinent negative responses have been documented in the HPI. ROS Other: All systems not noted in ROS Statement are negative. Past Medical History Past Medical History: Blood Disorder, Heart Failure, Diabetes Mellitus, Dialysis , Hyperlipidemia, Hypertension, Liver Disease, Pneumonia, Renal Disease Additional Past Medical History / Comment(s): Current R eye infection, bilateral cataracts, bilateral retinal hemorrhages, hypertriglyceridemia- induced acute pancreatitis, THEN necrotizing pancreatitis. hemodialysis for acute kidney injury 2 months in 2009 after pancreatic OR, 11/2015 diagnosed w/ chronic kidney disease-hemodialysis //, IDDM type II, pt states she has dry heaves day after dialysis, chronic anemia, body cramping when blood sugars are high, occasional low back pain, carter's palsy x2, past L leg fx. History of Any Multi-Drug Resistant Organisms: None Reported Past Surgical History: Orthopedic Surgery, Uterine Ablation Additional Past Surgical History / Comment(s): 08/26/17 colonoscopy with polypectomy/bx, pancreatic resection at [facility] 2009, bone marrow biopsies X2-last one 05/19/16,. dialysis chest port x 2 with removals, Left arm shunt placement for dialysis - December 2015 and a revision done with shunt/ Past Anesthesia/Blood Transfusion Reactions: No Reported Reaction Additional Past Anesthesia/Blood Transfusion Reaction / Comment(s): Pt has received blood transfusions without reaction. Past Psychological History: No Psychological Hx Reported Smoking Status: Never smoker Past Alcohol Use History: None Reported Past Drug Use History: None Reported - Past Family History Brother(s) Family Medical History: No Reported History Mother Family Medical History: Cancer, Diabetes Mellitus, Hypertension Additional Family Medical History / Comment(s): Mother of throat cancer at the age of 63 yrs. She was a smoker. Father Family Medical History: Coronary Artery Disease (CAD), Hyperlipidemia, Hypertension Additional Family Medical History / Comment(s): Father is 70 yrs old. General Exam Limitations: no limitations General appearance: alert, in no apparent distress Head exam: Present: atraumatic, normocephalic, normal inspection Eye exam: Present: normal appearance, PERRL, EOMI. Absent: scleral icterus, conjunctival injection, periorbital swelling ENT exam: Present: normal exam, mucous membranes moist Neck exam: Present: normal inspection. Absent: tenderness, meningismus, lymphadenopathy Respiratory exam: Present: normal lung sounds bilaterally. Absent: respiratory distress, wheezes, rales, rhonchi, stridor Cardiovascular Exam: Present: regular rate, normal rhythm, normal heart sounds. Absent: systolic murmur, diastolic murmur, rubs, gallop, clicks GI/Abdominal exam: Present: soft, normal bowel sounds. Absent: distended, tenderness, guarding, rebound, rigid Extremities exam: Present: normal inspection, full ROM, normal capillary refill. Absent: tenderness, pedal edema, joint swelling, calf tenderness Back exam: Present: normal inspection Neurological exam: Present: alert, oriented X3, CN II-XII intact Psychiatric exam: Present: normal affect, normal mood Skin exam: Present: warm, dry, intact, normal color. Absent: rash Course Vital Signs 10/22/17 10/22/17 19:07 20:25 Temperature 99 F Pulse Rate 78 70 Respiratory 16 18 Rate Blood Pressure 192/85 153/74 O2 Sat by Pulse 94 L 99 Oximetry - Reevaluation(s) Reevaluation #1: 10/22/17 20:53 Record is reviewed Reevaluation #2: 10/22/17 20:53 Patient is feeling much better at this time Medical Decision Making - Medical Decision Making 52 female the ER for evaluation, positive muscle cramping body cramps. Left lites are normal, patient can be discharged home, given fluid and symptomatic therapy here feeling better, patient can be discharged home - Lab Data Result diagrams: 10/22/17 19:34 10/22/17 19:34 Lab Results 10/22/17 10/22/17 10/22/17 Range/Units 19:34 19:34 19:34 WBC 3.3 L (3.8-10.6) k/uL RBC 2.58 L (3.80-5.40) m/uL Hgb 8.8 L (11.4-16.0) gm/dL Hct 26.0 L (34.0-46.0) % MCV 100.8 H (80.0-100.0) fL MCH 34.0 (25.0-35.0) pg MCHC 33.8 (31.0-37.0) g/dL RDW 17.9 H (11.5-15.5) % Plt Count 132 L (150-450) k/uL Neutrophils % 78 % Lymphocytes % 12 % Monocytes % 7 % Eosinophils % 2 % Basophils % 0 % Neutrophils # 2.5 (1.3-7.7) k/uL Lymphocytes # 0.4 L (1.0-4.8) k/uL Monocytes # 0.2 (0-1.0) k/uL Eosinophils # 0.1 (0-0.7) k/uL Basophils # 0.0 (0-0.2) k/uL Anisocytosis Slight Macrocytosis Slight Sodium 136 L (137-145) mmol/L Potassium 5.8 H (3.5-5.1) mmol/L Chloride 88 L (98-107) mmol/L Carbon Dioxide 34 H (22-30) mmol/L Anion Gap 14 mmol/L BUN 32 H (7-17) mg/dL Creatinine 5.70 H* (0.52-1.04) mg/dL Est GFR (CKD-EPI)AfAm 9 (>60 ml/min/1.73 sqM) Est GFR (CKD-EPI)NonAf 8 (>60 ml/min/1.73 sqM) Glucose 176 H (74-99) mg/dL Calcium 9.0 (8.4-10.2) mg/dL Phosphorus 2.7 (2.5-4.5) mg/dL Magnesium 2.0 (1.6-2.3) mg/dL Total Bilirubin 0.8 (0.2-1.3) mg/dL AST 24 (14-36) U/L ALT 44 (9-52) U/L Alkaline Phosphatase 110 (38-126) U/L Total Creatine Kinase 166 H (30-135) U/L Total Protein 7.0 (6.3-8.2) g/dL Albumin 4.4 (3.5-5.0) g/dL Disposition Clinical Impression: ESRD (end stage renal disease) on dialysis, Muscle cramp Disposition: HOME SELF-CARE Condition: Good Instructions: Muscle Cramp (ED), Leg Cramps (ED) Is patient prescribed a controlled substance at d/c from ED?: No Referrals: David Bragg MD [Primary Care Provider] - 1-2 days
[2017-10-22 21:02] LABS: Creatine Kinase 166 U/L (30-135)
[2017-10-22 21:13] LABS: Creatine Kinase MB 1.4 ng/mL (0.0-2.4); Troponin I <0.012 ng/mL (0.000-0.034)
[2017-10-22 21:17] VITALS: BP 164/75; PULSE 73; TEMP 98.7
== END 2017-10-22 21:17 | disposition home or self-care (01) ==
LOC: EC 19:06
DX: N18.6 End stage renal disease (principal); I13.2 Hypertensive heart and chronic kidney disease with heart failure and with stage 5 chronic kidney disease, or end stage renal disease; I50.9 Heart failure, unspecified; E78.5 Hyperlipidemia, unspecified; E11.22 Type 2 diabetes mellitus with diabetic chronic kidney disease; E11.36 Type 2 diabetes mellitus with diabetic cataract; G51.0 Bell's palsy; Z79.4 Long term (current) use of insulin; Z79.899 Other long term (current) drug therapy; Z88.1 Allergy status to other antibiotic agents; Z91.041 Radiographic dye allergy status; Z99.2 Dependence on renal dialysis
CPT/HCPCS: 99284; 96374; 96375 ×2; 36415; 80053; 82550; 82553; 83735; 84100; 84484; 85025; J2360; J3360; J1885

== ENCOUNTER 2017-10-25 11:34 | Inpatient (IN) | payer OTHER ==
[2017-10-25] MEDS ORDERED: NITROGLYCERIN-D5W PMX 50 MG in DEXTROSE/WATER 1 250ML.BAG IV STA (11:43)
[2017-10-25] MEDS ORDERED: NITROGLYCERIN SL TABS 0.4 MG TAB SUBLINGUAL STA (11:50)
[2017-10-25] MEDS ORDERED: FUROSEMIDE 10 MG/ML 10 ML VIAL IV STA (11:56)
--- NOTE | 2017-10-25 11:59 | ED ---
General Adult HPI - General Chief complaint: Shortness of Breath Stated complaint: NEEDS DIALYSIS, HIGH BP, SPITTING UP BLOOD Time Seen by Provider: 10/25/17 11:42 Source: patient, RN notes reviewed, old records reviewed Mode of arrival: wheelchair Limitations: no limitations - History of Present Illness Initial comments: 52-year-old female presenting with worsening dyspnea. Patient has history of hypertension and end-stage renal disease. She is on hemodialysis Thursday and Thursday. Her dyspnea has been progressive. She did receive hemodialysis yesterday however this was infiltration with no fluid reduction. Patient believes this was secondary to a misinterpreted weight. She denies any chest pain at this time. She has had a cough which is productive of blood- tinged sputum. Patient denies any abdominal pain. Denies nausea or vomiting. She does report some bilateral pain and edema in her lower extremities. - Related Data Home Medications Medication Instructions Recorded Confirmed Atorvastatin [Lipitor] 40 mg PO HS 09/14/15 10/22/17 Cyclobenzaprine [Flexeril] 5 mg PO HS 09/14/15 10/22/17 Magnesium Gluconate [Magonate] 500 mg PO BID 09/14/15 10/22/17 Insulin Glargine [Lantus] 80 unit SQ HS 04/18/16 10/22/17 Prochlorperazine [Compazine] 5 mg PO BID PRN 05/14/16 10/22/17 Sevelamer [Renvela] 2,400 mg PO AC-TID 12/16/16 10/22/17 cloNIDine HCL 0.3 mg PO TID 12/16/16 10/22/17 rOPINIRole HCL [Requip] 1 mg PO TID 02/07/17 10/22/17 B Complex W-C No.20/Folic Acid 1 mg PO DAILY 08/21/17 10/22/17 [Renal Caps Softgel] Gabapentin [Neurontin] 100 mg PO TID 08/21/17 10/22/17 Lactulose [Constulose] 10 gm PO TID PRN 08/21/17 10/22/17 Sevelamer [Renvela] 800 mg PO DAILY PRN 08/21/17 10/22/17 traMADol HCl [Ultram] 50 mg PO Q4H PRN 08/21/17 10/22/17 Erythromycin Base [Erythromycin] 1 applic RIGHT EYE BID 09/21/17 10/22/17 Lidocaine-Prilocaine Cream [Emla 1 applic TOPICAL TUTHSA PRN 09/21/17 10/22/17 Cream 2.5%/2.5%] INSULIN LISPRO (HumaLOG) [HumaLOG] 16 units SQ AC-TID 10/06/17 10/22/17 INSULIN LISPRO (HumaLOG) [HumaLOG] See Protocol SQ ACHS PRN 10/06/17 10/22/17 amLODIPine [Norvasc] 10 mg PO DAILY 10/06/17 10/22/17 Cholecalciferol [Vitamin D3] 2,000 unit PO TUTHSA 10/22/17 10/22/17 Furosemide [Lasix] 80 mg PO BID 10/22/17 10/22/17 Metoprolol Tartrate [Lopressor] 50 mg PO BID 10/22/17 10/22/17 Omeprazole 20 mg PO DAILY 10/22/17 10/22/17 Vitamin E (Dl,Tocopheryl Acet) 400 unit PO DAILY 10/22/17 10/22/17 [Vitamin E] Previous Rx's Medication Instructions Recorded hydrALAZINE HCL [Apresoline] 100 mg PO TID #180 tab 06/10/16 Levocarnitine (with Sugar) 300 mg PO BID #118 ml 02/11/17 [Levocarnitine 1 G/10 ml Oral Soln] HYDROcodone/APAP 5-325MG [[place] 1 tab PO Q8HR PRN #45 tab 09/24/17 5-325] Allergies Allergy/AdvReac Type Severity Reaction Status Date / Time ciprofloxacin [From Cipro] AdvReac AFFECTED Verified 10/25/17 11:40 EYESIGHT ciprofloxacin HCl AdvReac AFFECTED Verified 10/25/17 11:40 [From Cipro] EYESIGHT Iodinated Contrast- Oral and AdvReac RENAL Verified 10/25/17 11:40 IV Dye FAILURE Review of Systems ROS Statement: Those systems with pertinent positive or pertinent negative responses have been documented in the HPI. ROS Other: All systems not noted in ROS Statement are negative. Past Medical History Past Medical History: Blood Disorder, Heart Failure, Diabetes Mellitus, Dialysis , Hyperlipidemia, Hypertension, Liver Disease, Pneumonia, Renal Disease Additional Past Medical History / Comment(s): Current R eye infection, bilateral cataracts, bilateral retinal hemorrhages, hypertriglyceridemia- induced acute pancreatitis, THEN necrotizing pancreatitis. hemodialysis for acute kidney injury 2 months in 2009 after pancreatic OR, 11/2015 diagnosed w/ chronic kidney disease-hemodialysis //, IDDM type II, pt states she has dry heaves day after dialysis, chronic anemia, body cramping when blood sugars are high, occasional low back pain, carter's palsy x2, past L leg fx. History of Any Multi-Drug Resistant Organisms: None Reported Past Surgical History: Orthopedic Surgery, Uterine Ablation Additional Past Surgical History / Comment(s): 08/26/17 colonoscopy with polypectomy/bx, pancreatic resection at [facility] 2009, bone marrow biopsies X2-last one 05/19/16,. dialysis chest port x 2 with removals, Left arm shunt placement for dialysis - December 2015 and a revision done with shunt/ Past Anesthesia/Blood Transfusion Reactions: No Reported Reaction Additional Past Anesthesia/Blood Transfusion Reaction / Comment(s): Pt has received blood transfusions without reaction. Past Psychological History: No Psychological Hx Reported Smoking Status: Never smoker Past Alcohol Use History: None Reported Past Drug Use History: None Reported - Past Family History Brother(s) Family Medical History: No Reported History Mother Family Medical History: Cancer, Diabetes Mellitus, Hypertension Additional Family Medical History / Comment(s): Mother of throat cancer at the age of 63 yrs. She was a smoker. Father Family Medical History: Coronary Artery Disease (CAD), Hyperlipidemia, Hypertension Additional Family Medical History / Comment(s): Father is 70 yrs old. General Exam Limitations: no limitations General appearance: alert, in no apparent distress Head exam: Present: atraumatic, normocephalic Eye exam: Present: normal appearance, PERRL Neck exam: Present: normal inspection. Absent: tenderness, meningismus Respiratory exam: Present: respiratory distress, rales, decreased breath sounds Cardiovascular Exam: Present: regular rate, normal rhythm GI/Abdominal exam: Present: soft. Absent: distended, tenderness, guarding Extremities exam: Present: pedal edema Back exam: Present: normal inspection Neurological exam: Present: alert, oriented X3, CN II-XII intact. Absent: motor sensory deficit Psychiatric exam: Present: normal affect, normal mood Skin exam: Present: warm, dry, intact. Absent: cyanosis, diaphoretic Course Vital Signs 10/25/17 11:39 Temperature 98.4 F Pulse Rate 96 Respiratory 22 Rate Blood Pressure 194/88 O2 Sat by Pulse 89 L Oximetry EKG Findings - EKG Comments: EKG Findings:: EKG: Normal sinus rhythm, incomplete right bundle no ST segment elevation or depression, rate of 84, OK interval 172, QRS duration 92, QTC 444 Medical Decision Making - Medical Decision Making 52-year-old female with history of end-stage renal disease on hemodialysis presenting with severe dyspnea and hypoxia. Patient is clinically fluid overloaded. Chest x-ray obtained, she does have diffuse pulmonary edema, she also has very large cardiomegaly. There is no recent echo in the medical record , this will be obtained for concern of pericardial effusion. Laboratory studies reveal hemoglobin 8.2 which appears stable for this patient. Potassium initially 6.5 with slight hemolysis, this is repeated and is 7.3 with no hemolysis. BNP is 10,000 consistent with fluid overload. Patient does make urine, she is initially given 60 mg of IV Lasix started on a nitroglycerin infusion. Case is discussed with Dr. Jones, he recommends 80 mg of Lasix twice a day and will arrange for hemodialysis. Patient is given Kayexalate for her hyperkalemia, the hemodialysis nurses in the emergency department and is beginning to perform hemodialysis and therefore no other treatment for hyperkalemia will be initiated. Patient will be admitted to primary care physician with nephrology on consult. - Lab Data Result diagrams: 10/25/17 11:59 10/25/17 12:55 Lab Results 10/25/17 10/25/17 10/25/17 Range/Units 11:59 11:59 11:59 WBC 5.8 (3.8-10.6) k/uL RBC 2.39 L (3.80-5.40) m/uL Hgb 8.2 L (11.4-16.0) gm/dL Hct 23.8 L (34.0-46.0) % MCV 99.5 (80.0-100.0) fL MCH 34.3 (25.0-35.0) pg MCHC 34.5 (31.0-37.0) g/dL RDW 18.4 H (11.5-15.5) % PT (9.0-12.0) sec INR (<1.2) APTT (22.0-30.0) sec Sodium 137 (137-145) mmol/L Potassium 6.5 H* (3.5-5.1) mmol/L Chloride 93 L (98-107) mmol/L Carbon Dioxide 30 (22-30) mmol/L Anion Gap 14 mmol/L BUN 45 H (7-17) mg/dL Creatinine 6.21 H* (0.52-1.04) mg/dL Est GFR (CKD-EPI)AfAm 8 (>60 ml/min/1.73 sqM) Est GFR (CKD-EPI)NonAf 7 (>60 ml/min/1.73 sqM) Glucose 211 H (74-99) mg/dL Calcium 9.5 (8.4-10.2) mg/dL Magnesium 2.1 (1.6-2.3) mg/dL Total Bilirubin 1.3 (0.2-1.3) mg/dL AST 46 H (14-36) U/L ALT 40 (9-52) U/L Alkaline Phosphatase 91 (38-126) U/L Total Creatine Kinase 173 H (30-135) U/L CK-MB (CK-2) 2.1 (0.0-2.4) ng/mL CK-MB (CK-2) Rel Index 1.2 Troponin I 0.016 (0.000-0.034) ng/mL NT-Pro-B Natriuret Pep pg/mL Total Protein 7.6 (6.3-8.2) g/dL Albumin 4.8 (3.5-5.0) g/dL 10/25/1718 10/25/17 Range/Units 11:59 12:55 12:57 WBC (3.8-10.6) k/uL RBC (3.80-5.40) m/uL Hgb (11.4-16.0) gm/dL Hct (34.0-46.0) % MCV (80.0-100.0) fL MCH (25.0-35.0) pg MCHC (31.0-37.0) g/dL RDW (11.5-15.5) % PT 10.0 (9.0-12.0) sec INR 1.0 (<1.2) APTT 22.1 (22.0-30.0) sec Sodium 137 (137-145) mmol/L Potassium 7.3 H* (3.5-5.1) mmol/L Chloride 92 L (98-107) mmol/L Carbon Dioxide 31 H (22-30) mmol/L Anion Gap 14 mmol/L BUN 44 H (7-17) mg/dL Creatinine 6.50 H* (0.52-1.04) mg/dL Est GFR (CKD-EPI)AfAm 8 (>60 ml/min/1.73 sqM) Est GFR (CKD-EPI)NonAf 7 (>60 ml/min/1.73 sqM) Glucose 175 H (74-99) mg/dL Calcium 9.5 (8.4-10.2) mg/dL Magnesium (1.6-2.3) mg/dL Total Bilirubin (0.2-1.3) mg/dL AST (14-36) U/L ALT (9-52) U/L Alkaline Phosphatase (38-126) U/L Total Creatine Kinase (30-135) U/L CK-MB (CK-2) (0.0-2.4) ng/mL CK-MB (CK-2) Rel Index Troponin I (0.000-0.034) ng/mL NT-Pro-B Natriuret Pep 86575 pg/mL Total Protein (6.3-8.2) g/dL Albumin (3.5-5.0) g/dL Critical Care Time Critical Care Time: Yes Total Critical Care Time: 35 Disposition Clinical Impression: Hypertension, uncontrolled, ESRD (end stage renal disease) on dialysis, Fluid overload, Hypertensive urgency, Hyperkalemia Disposition: ADMITTED IP TO THIS [facility] Condition: Serious Is patient prescribed a controlled substance at d/c from ED?: No Referrals: David Bragg MD [Primary Care Provider] - 1-2 days Decision to Admit Reason: Admit from EC Decision Date: 10/25/17 Decision Time: 13:49
[2017-10-25 12:30] LABS: Albumin 4.8 g/dL (3.5-5.0); Calcium 9.5 mg/dL (8.4-10.2); Total Bilirubin 1.3 mg/dL (0.2-1.3); Total Protein 7.6 g/dL (6.3-8.2)
[2017-10-25 12:36] LABS: Anisocytosis Slight; Basophils % (A) 0 %; Eosinophils % (A) 0 %; HCT 23.8 % (34.0-46.0); HGB 8.2 gm/dL (11.4-16.0); Lymphocytes # (A) 0.4 k/uL (1.0-4.8); Lymphocytes % (A) 7 %; MCH 34.3 pg (25.0-35.0); MCHC 34.5 g/dL (31.0-37.0); MCV 99.5 fL (80.0-100.0); Macrocytosis Slight; Mean Platelet Volume 7.5; Monocytes # (A) 0.3 k/uL (0-1.0); Monocytes % (A) 5 %; Neutrophils % (A) 87 %; Poikilocytosis Slight; Potassium 6.5 mmol/L (3.5-5.1); RBC 2.39 m/uL (3.80-5.40); RDW 18.4 % (11.5-15.5); WBC 5.8 k/uL (3.8-10.6)
--- NOTE | 2017-10-25 12:36 | XR ---
EXAMINATION TYPE: XR chest 2V DATE OF EXAM: 10/25/2017 COMPARISON: 10/05/2017 TECHNIQUE: PA and lateral views submitted. HISTORY: Difficulty breathing FINDINGS: Megaly and diffuse bilateral infiltrates. No pneumothorax or pleural effusion. Osseous structures are stable. IMPRESSION: 1. Diffuse bilateral infiltrates are stable. Correlate for atypical pneumonia, pneumonia or CHF. Hear t enlarged and be associated with cardiomyopathy or pericardial effusion.
[2017-10-25 12:37] LABS: Magnesium 2.1 mg/dL (1.6-2.3)
[2017-10-25 12:50] LABS: Creatine Kinase MB 2.1 ng/mL (0.0-2.4); Troponin I 0.016 ng/mL (0.000-0.034)
[2017-10-25] MEDS ORDERED: SODIUM POLYSTYRENE SULFONATE 15 GM/60 ML BOTTLE PO ONE (12:54)
[2017-10-25 13:15] LABS: Partial Thromboplastin Time 22.1 sec (22.0-30.0)
[2017-10-25 13:24] LABS: Calcium 9.5 mg/dL (8.4-10.2)
[2017-10-25 13:32] LABS: Potassium 7.3 mmol/L (3.5-5.1)
[2017-10-25] MEDS ORDERED: NALOXONE 0.4 MG/ML 1 ML VIAL IV PRN (13:40)
[2017-10-25 13:44] LABS: Platelet Count 96 k/uL (150-450); Stomatocytes Present
[2017-10-25] MEDS ORDERED: HYDROcodone/APAP 5-325MG 1 EACH TAB PO STA (14:11)
[2017-10-25 17:15] LABS: Glucose,Whole Blood 143 mg/dL (75-99)
[2017-10-25] MEDS: INSULIN ASPART 100 UNIT/ML 1 ML 10 ML VIAL SQ SCH ×2 (17:37→21:40)
[2017-10-25 18:25] VITALS: BMI 29.2
[2017-10-25] MEDS ORDERED: LACTULOSE 20 GM/30 ML CUP PO PRN (18:37)
[2017-10-25] MEDS ORDERED: LIDOCAINE-PRILOCAINE 2.5-2.5% CREAM 5 GM TUBE TOPICAL PRN (18:37)
[2017-10-25 20:46] LABS: Glucose,Whole Blood 295 mg/dL (75-99)
[2017-10-25] MEDS ORDERED: FUROSEMIDE 80 MG TAB PO SCH (21:00)
[2017-10-25] MEDS: levOCARNitine (WITH SUGAR) 100 MG/ML BOTTLE PO SCH (21:25)
[2017-10-25] MEDS: traMADol 50 MG TAB PO PRN (21:34)
[2017-10-25] MEDS: INSULIN DETEMIR 100 UNIT/ML 10 ML VIAL SQ SCH (21:34)
[2017-10-25] MEDS: METOPROLOL TARTRATE 50 MG TAB PO SCH (21:35)
[2017-10-25] MEDS: MAGNESIUM OXIDE 400 MG TAB PO SCH (21:35)
[2017-10-25] MEDS: FUROSEMIDE 10 MG/ML 10 ML VIAL IV SCH (21:35)
[2017-10-25] MEDS: GABAPENTIN 100 MG CAP PO SCH (21:36)
[2017-10-25] MEDS: ATORVASTATIN 40 MG TAB PO SCH (21:36)
[2017-10-25] MEDS: cloNIDine HCL 0.1 MG TAB PO SCH (21:36)
[2017-10-25] MEDS: hydrALAZINE HCL 50 MG TAB PO SCH (21:36)
[2017-10-25] MEDS: CYCLOBENZAPRINE 5 MG TAB PO SCH (21:36)
[2017-10-25] MEDS: HYDROcodone/APAP 5-325MG 1 EACH TAB PO PRN (22:36)
[2017-10-26] MEDS: INSULIN ASPART 100 UNIT/ML 1 ML 10 ML VIAL SQ SCH ×7 (05:51→20:57)
[2017-10-26 05:52] LABS: Glucose,Whole Blood 182 mg/dL (75-99)
[2017-10-26] MEDS: PROCHLORPERAZINE 5 MG TAB PO PRN (05:52)
[2017-10-26 06:59] LABS: Calcium 9.2 mg/dL (8.4-10.2); Potassium 5.2 mmol/L (3.5-5.1)
[2017-10-26] MEDS ORDERED: SEVELAMER 800 MG TAB PO SCH (07:30)
[2017-10-26] MEDS: PANTOPRAZOLE 40 MG TABLET PO SCH (08:03)
[2017-10-26] MEDS: MAGNESIUM OXIDE 400 MG TAB PO SCH ×2 (08:04→20:59)
[2017-10-26] MEDS: GABAPENTIN 100 MG CAP PO SCH ×3 (08:04→21:00)
[2017-10-26] MEDS: SEVELAMER 800 MG TAB PO SCH ×3 (08:04→17:22)
[2017-10-26] MEDS: VITAMIN E (DL,TOCOPHERYL ACET) 400 UNIT CAP PO SCH (08:04)
[2017-10-26] MEDS: FOLIC ACID-VIT B COMPLEX-VIT C 1 CAP PO SCH (08:04)
--- NOTE | 2017-10-26 10:02 | P.HPIM ---
History of Present Illness H&P Date: 10/25/17 (Late entry note) Chief Complaint: Shortness of breath, cough with sputum production with streaks of blood Mrs. Sara peralta is a 52-year-old female with chronic renal failure and hemodialysis she gets her dialysis on Thursday and Thursday, she got her dialysis one day prior to coming into the hospital however no fluid has been removed she is been more short of breath which is slowly progressively getting better. Several days, she has some cough which is associated with the phlegm production which is clear thick tenacious today on coughing she noted a streak of blood however denies any luis enrique hemoptysis she also noted some swelling of the lower extremity she feels that she is retaining more water, patient has been admitted from the emergency department into the service of Dr. David ruelas was a primary care provider, this patient seen and evaluated examined while covering for Dr. David Bragg. Care plan discussed with the emergency room physician Review of Systems All systems: negative Past Medical History Past Medical History: Blood Disorder, Heart Failure, Diabetes Mellitus, Dialysis , Hyperlipidemia, Hypertension, Liver Disease, Pneumonia, Renal Disease Additional Past Medical History / Comment(s): Current R eye infection, bilateral cataracts, bilateral retinal hemorrhages, hypertriglyceridemia- induced acute pancreatitis, THEN necrotizing pancreatitis. hemodialysis for acute kidney injury 2 months in 2009 after pancreatic OR, 11/2015 diagnosed w/ chronic kidney disease-hemodialysis //, IDDM type II, pt states she has dry heaves day after dialysis, chronic anemia, body cramping when blood sugars are high, occasional low back pain, carter's palsy x2, past L leg fx. History of Any Multi-Drug Resistant Organisms: None Reported Past Surgical History: Orthopedic Surgery, Uterine Ablation Additional Past Surgical History / Comment(s): 08/26/17 colonoscopy with polypectomy/bx, pancreatic resection at [facility] 2009, bone marrow biopsies X2-last one 05/19/16,. dialysis chest port x 2 with removals, Left arm shunt placement for dialysis - December 2015 and a revision done with shunt/ Past Anesthesia/Blood Transfusion Reactions: No Reported Reaction Additional Past Anesthesia/Blood Transfusion Reaction / Comment(s): Pt has received blood transfusions without reaction. Past Psychological History: No Psychological Hx Reported Additional Psychological History / Comment(s): Pt resides at her mother in laws home at this time with spouse. They are her mother in laws caretakers. She is independent. She uses no assistive device. She drives. Smoking Status: Never smoker Past Alcohol Use History: None Reported Additional Past Alcohol Use History / Comment(s): Patient is a lifelong nonsmoker. Past Drug Use History: None Reported - Past Family History Brother(s) Family Medical History: No Reported History Mother Family Medical History: Cancer, Diabetes Mellitus, Hypertension Additional Family Medical History / Comment(s): Mother of throat cancer at the age of 63 yrs. She was a smoker. Father Family Medical History: Coronary Artery Disease (CAD), Hyperlipidemia, Hypertension Additional Family Medical History / Comment(s): Father is 70 yrs old. Medications and Allergies Home Medications Medication Instructions Recorded Confirmed Type Atorvastatin [Lipitor] 40 mg PO HS 09/14/15 10/25/17 History Cyclobenzaprine [Flexeril] 5 mg PO HS 09/14/15 10/25/17 History Magnesium Gluconate [Magonate] 500 mg PO BID 09/14/15 10/25/17 History Insulin Glargine [Lantus] 80 unit SQ HS 04/18/16 10/25/17 History Prochlorperazine [Compazine] 5 mg PO BID PRN 05/14/16 10/25/17 History hydrALAZINE HCL [Apresoline] 100 mg PO TID #180 tab 06/10/16 10/25/17 Rx Sevelamer [Renvela] 2,400 mg PO AC-TID 12/16/16 10/25/17 History cloNIDine HCL 0.3 mg PO TID 12/16/16 10/25/17 History rOPINIRole HCL [Requip] 1 mg PO TID 02/07/17 10/25/17 History Levocarnitine (with Sugar) 300 mg PO BID #118 ml 02/11/17 10/25/17 Rx [Levocarnitine 1 G/10 ml Oral Soln] B Complex W-C No.20/Folic Acid 1 mg PO DAILY 08/21/17 10/25/17 History [Renal Caps Softgel] Gabapentin [Neurontin] 100 mg PO TID 08/21/17 10/25/17 History Lactulose [Constulose] 10 gm PO TID PRN 08/21/17 10/25/17 History Sevelamer [Renvela] 800 mg PO DAILY PRN 08/21/17 10/25/17 History traMADol HCl [Ultram] 50 mg PO Q4H PRN 08/21/17 10/25/17 History Lidocaine-Prilocaine Cream [Emla 1 applic TOPICAL TUTHSA PRN 09/21/17 10/25/17 History Cream 2.5%/2.5%] HYDROcodone/APAP 5-325MG [[place] 1 tab PO Q8HR PRN #45 tab 09/24/17 10/25/17 Rx 5-325] INSULIN LISPRO (HumaLOG) [HumaLOG] 16 units SQ AC-TID 10/06/17 10/25/17 History INSULIN LISPRO (HumaLOG) [HumaLOG] See Protocol SQ ACHS PRN 10/06/17 10/25/17 History amLODIPine [Norvasc] 10 mg PO DAILY 10/06/17 10/25/17 History Cholecalciferol [Vitamin D3] 2,000 unit PO TUTHSA 10/22/17 10/25/17 History Furosemide [Lasix] 80 mg PO BID 10/22/17 10/25/17 History Metoprolol Tartrate [Lopressor] 50 mg PO BID 10/22/17 10/25/17 History Omeprazole 20 mg PO DAILY 10/22/17 10/25/17 History Vitamin E (Dl,Tocopheryl Acet) 400 unit PO DAILY 10/22/17 10/25/17 History [Vitamin E] Prochlorperazine [Compazine] 5 mg PO BID PRN 10/26/17 10/26/17 History Allergies Allergy/AdvReac Type Severity Reaction Status Date / Time ciprofloxacin [From Cipro] AdvReac AFFECTED Verified 10/25/17 14:01 EYESIGHT ciprofloxacin HCl AdvReac AFFECTED Verified 10/25/17 14:01 [From Cipro] EYESIGHT Iodinated Contrast- Oral and AdvReac RENAL Verified 10/25/17 14:01 IV Dye FAILURE Physical Exam Vitals: Vital Signs Temp Pulse Pulse Resp BP BP Pulse Ox 10/26/17 08:00 97.3 F L 86 16 169/78 98 10/26/17 04:00 97.7 F 77 16 156/84 96 10/26/17 00:00 97.3 F L 81 16 168/78 98 10/25/17 20:00 99.1 F 84 16 165/73 100 10/25/17 17:00 98.2 F 76 18 142/72 100 10/25/17 16:39 82 16 142/70 98 10/25/17 15:00 76 16 157/75 97 10/25/17 14:00 82 16 155/68 95 10/25/17 13:00 84 16 160/70 94 L 10/25/17 11:39 98.4 F 96 22 194/88 89 L Intake and Output 10/25/17 10/26/17 10/26/17 22:59 06:59 14:59 Intake Total 27.2 360 Output Total 675 Balance 27.2 -675 360 Intake: Intake, IV Titration 27.2 Amount Nitroglycerin-D5w Pmx 50 27.2 mg In Dextrose/Water 1 250ml.bag @ 5 MCG/MIN 1.5 mls/hr IV .Q24H STA Rx#: [id number] Oral 360 Output: Urine 675 Other: # Voids 3 1 # Bowel Movements 1 Weight 74.84 kg 77.2 kg On arrival to emergency department patient noted to be hypoxic with oxygen saturation of only 89% with the elevated blood pressure of 194/88, patient was noted to be tachypneic tachycardic renal services has been notified and being planned for hemodialysis General appearance: alert, in no apparent distress Head exam: Present: atraumatic, normocephalic Eye exam: Present: normal appearance, PERRL Neck exam: Present: normal inspection. Absent: tenderness, meningismus Respiratory exam: Present: respiratory distress, rales, decreased breath sounds Cardiovascular Exam: Present: regular rate, normal rhythm GI/Abdominal exam: Present: soft. Absent: distended, tenderness, guarding Extremities exam: Present: pedal edema Back exam: Present: normal inspection Neurological exam: Present: alert, oriented X3, CN II-XII intact. Absent: motor sensory deficit Psychiatric exam: Present: normal affect, normal mood Skin exam: Present: warm, dry, intact. Absent: cyanosis, diaphoretic Results CBC & Chem 7: 10/25/17 11:59 10/26/17 05:54 Labs: Abnormal Lab Results - Last 24 Hours (Table) 10/25/17 10/25/17 10/25/17 Range/Units 11:59 11:59 11:59 RBC 2.39 L (3.80-5.40) m/uL Hgb 8.2 L (11.4-16.0) gm/dL Hct 23.8 L (34.0-46.0) % RDW 18.4 H (11.5-15.5) % Plt Count 96 L (150-450) k/uL Lymphocytes # 0.4 L (1.0-4.8) k/uL Sodium (137-145) mmol/L Potassium 6.5 H* (3.5-5.1) mmol/L Chloride 93 L (98-107) mmol/L Carbon Dioxide (22-30) mmol/L BUN 45 H (7-17) mg/dL Creatinine 6.21 H* (0.52-1.04) mg/dL Glucose 211 H (74-99) mg/dL POC Glucose (mg/dL) (75-99) mg/dL AST 46 H (14-36) U/L Total Creatine Kinase 173 H (30-135) U/L 10/25/17 10/25/17 10/25/17 Range/Units 12:55 17:11 20:44 RBC (3.80-5.40) m/uL Hgb (11.4-16.0) gm/dL Hct (34.0-46.0) % RDW (11.5-15.5) % Plt Count (150-450) k/uL Lymphocytes # (1.0-4.8) k/uL Sodium (137-145) mmol/L Potassium 7.3 H* (3.5-5.1) mmol/L Chloride 92 L (98-107) mmol/L Carbon Dioxide 31 H (22-30) mmol/L BUN 44 H (7-17) mg/dL Creatinine 6.50 H* (0.52-1.04) mg/dL Glucose 175 H (74-99) mg/dL POC Glucose (mg/dL) 143 H 295 H (75-99) mg/dL AST (14-36) U/L Total Creatine Kinase (30-135) U/L 10/26/17 10/26/17 Range/Units 05:50 05:54 RBC (3.80-5.40) m/uL Hgb (11.4-16.0) gm/dL Hct (34.0-46.0) % RDW (11.5-15.5) % Plt Count (150-450) k/uL Lymphocytes # (1.0-4.8) k/uL Sodium 136 L (137-145) mmol/L Potassium 5.2 H (3.5-5.1) mmol/L Chloride 92 L (98-107) mmol/L Carbon Dioxide (22-30) mmol/L BUN 48 H (7-17) mg/dL Creatinine 6.08 H* (0.52-1.04) mg/dL Glucose 169 H (74-99) mg/dL POC Glucose (mg/dL) 182 H (75-99) mg/dL AST (14-36) U/L Total Creatine Kinase (30-135) U/L Chest x-ray: report reviewed, image reviewed (Cardiomegaly interstitial edema finding consistent with fluid overload) Thrombosis Risk Factor Assmnt - Choose All That Apply Each Factor Represents 1 point: Age 41-60 years Other Risk Factors: No Other congenital or acquired thrombophilia - If yes, enter type in comment: No Thrombosis Risk Factor Assessment Total Risk Factor Score: 1 Thrombosis Risk Factor Assessment Level: Low Risk Assessment and Plan Assessment: Acute exacerbation of congestive heart failure likely acute diastolic heart failure Fluid overload related to renal failure Hemoptysis single episode likely related to airway inflammation, doubt pneumonia Uncontrolled hypertension hypertensive urgency in emergency Chronic renal failure stage V, on hemodialysis Plan: Diuresis as planned from the emergency department Hemodialysis per renal service Monitor observe clinical course closely if evidence of fever or leukocytosis of persistent hemoptysis seen consider starting broad-spectrum antibiotic will be available for further evaluation as needed Deep breathing exercise incentive spirometry Resume home medications Further recommendations pending plan of care as per clinical response of the patient especially after hemodialysis Time with Patient: Greater than 30
--- NOTE | 2017-10-26 10:02 | ECHOF ---
Referral Reason:CHF/Cardiomegaly MEASUREMENTS -------- HEIGHT: 160.0 cm WEIGHT: 77.1 kg BP: 156/84 IVSd: 1.3 cm (0.6 - 1.1) LVIDd: 4.4 cm (3.9 - 5.3) LVPWd: 1.2 cm (0.6 - 1.1) IVSs: 1.7 cm LVIDs: 2.6 cm LVPWs: 2.2 cm LAESV Index (A-L): 35.43 ml/m Ao Diam: 3.2 cm (2.0 - 3.7) AV Cusp: 2.2 cm (1.5 - 2.6) LA Diam: 4.5 cm (2.7 - 3.8) MV EXCURSION: 18.395 mm (> 18.000) MV EF SLOPE: 125 mm/s (70 - 150) EPSS: 0.1 cm MV E Armando: 1.77 m/s MV DecT: 162 ms MV A Armando: 0.99 m/s MV E/A Ratio: 1.78 AV maxP.01 mmHg AV meanP.80 mmHg AR PHT: 127 ms RAP: 5.00 mmHg RVSP: 55.45 mmHg FINDINGS -------- Sinus rhythm. This was a technically good study. The left ventricular size is normal. There is mild concentric left ventricular hypertrophy. Overa ll left ventricular systolic function is normal with, an EF between 55 - 60 %. The right ventricle is normal in size and function. LA is moderately dilated 34-39 ml/m2 The right atrium is normal in size. Aortic valve is trileaflet and is mildly thickened. Trace amount of aortic regurgitation. The mitral valve leaflets are mildly thickened. Mild mitral annular calcification present. Mild m itral regurgitation is present. Mild tricuspid regurgitation present. There is moderate pulmonary hypertension. The right ventric ular systolic pressure, as measured by Doppler, is 55.45mmHg. Pulmonic valve appears structurally normal. The aortic root, ascending aorta and aortic arch are normal. Normal inferior vena cava with normal inspiratory collapse consistent with estimated right atrial pre ssure of 5 mmHg. There is a moderate, generalized pericardial effusion present. Large Pleural Effusion. CONCLUSIONS -------- 1. Sinus rhythm. 2. This was a technically good study. 3. The left ventricular size is normal. 4. There is mild concentric left ventricular hypertrophy. 5. Overall left ventricular systolic function is normal with, an EF between 55 - 60 %. 6. The right ventricle is normal in size and function. 7. LA is moderately dilated 34-39 ml/m2 8. The right atrium is normal in size. 9. Aortic valve is trileaflet and is mildly thickened. 10. Trace amount of aortic regurgitation. 11. The mitral valve leaflets are mildly thickened. 12. Mild mitral annular calcification present. 13. Mild mitral regurgitation is present. 14. Mild tricuspid regurgitation present. 15. There is moderate pulmonary hypertension. 16. The right ventricular systolic pressure, as measured by Doppler, is 55.45mmHg. 17. Pulmonic valve appears structurally normal. 18. The aortic root, ascending aorta and aortic arch are normal. 19. Normal inferior vena cava with normal inspiratory collapse consistent with estimated right atrial pressure of 5 mmHg. 20. There is a moderate, generalized pericardial effusion present. 21. Large Pleural Effusion. ASSOCIATE PROFESSOR OF PHYSICS: Mindi Suarez RDCS
[2017-10-26] MEDS: levOCARNitine (WITH SUGAR) 100 MG/ML BOTTLE PO SCH ×2 (10:37→20:58)
[2017-10-26] MEDS: FUROSEMIDE 10 MG/ML 10 ML VIAL IV SCH ×2 (10:38→21:07)
[2017-10-26 11:52] LABS: Glucose,Whole Blood 300 mg/dL (75-99)
[2017-10-26] MEDS: hydrALAZINE HCL 50 MG TAB PO SCH ×3 (11:54→21:00)
[2017-10-26] MEDS: METOPROLOL TARTRATE 50 MG TAB PO SCH ×2 (11:54→21:00)
[2017-10-26] MEDS: amLODIPine 10 MG TAB PO SCH (11:54)
[2017-10-26] MEDS: cloNIDine HCL 0.1 MG TAB PO SCH ×3 (11:54→21:00)
[2017-10-26 13:10] LABS: Hemoglobin A1C 5.7 % (4.0-6.0)
--- NOTE | 2017-10-26 14:46 | XR ---
EXAMINATION TYPE: XR chest 1V DATE OF EXAM: 10/26/2017 COMPARISON: 10/25/2017 HISTORY: 52 year-old female follow-up CHF, dialysis 2 times a week, shortness of breath TECHNIQUE: Single frontal view of the chest is obtained. FINDINGS: Heart remains moderately enlarged. Airspace opacities show improvement from 10/25/2017. No significant pleural effusion. IMPRESSION: Improvement in the patient's pulmonary edema though with similar moderate cardiomegaly.
--- NOTE | 2017-10-26 15:10 | CONS ---
CONSULTATION REASON FOR CONSULT: End-stage renal disease. HISTORY OF PRESENT ILLNESS: The patient is a 52-year-old female with end-stage renal disease, on hemodialysis on a Thursday, , Thursday schedule at [facility]. Patient was admitted to the hospital with complaints of shortness of breath. She stated she was not feeling well. She believes that not much fluid was taken off with hemodialysis on Thursday. The patient was dialyzed on an emergent basis yesterday. We had about 3 L of fluid removed. She did have significant cramping after that, but patient states she is feeling slightly better. She did not have any fever. There was some cough. No abdominal pain, nausea, vomiting or diarrhea. PAST MEDICAL HISTORY: End-stage renal disease, type 2 diabetes, hyperlipidemia, hypertension, anemia of chronic disease, a history of pancreatitis, CKD, mineral bone disorder, history of Hoffman's palsy. PAST SURGICAL HISTORY: Uterine ablation, colonoscopy, polypectomy, AV fistula left arm dialysis catheter previous placement in . History of pancreatic resection. SOCIAL HISTORY: Negative for smoking, drug abuse or alcohol abuse. MEDICATIONS: Medications at home prior to admission included: Lipitor, Flexeril, insulin, Compazine, Renvela, clonidine, Requip, Neurontin, insulin, Norvasc, vitamin D3, Lasix, Lopressor omeprazole, vitamin E, hydralazine, Vicodin. ALLERGIES: INCLUDE CIPRO, IV DYE. REVIEW OF SYSTEMS: As per HPI. Other systems negative. PHYSICAL EXAMINATION: Patient is comfortable, awake, alert, oriented x3, not in any acute distress. Blood pressure is elevated 175/91, heart rate 83 per minute. Patient is afebrile. Examination of the heart S1, S2. Examination of the lungs bilateral breath sounds are heard. No crackles or wheezing is heard. Abdomen is soft, nontender. Examination of the lower extremities shows no evidence of edema. [employer] exam is grossly intact. Patient is moving all 4 extremities. LABS: Revealed potassium of 5.2, sodium 136. ASSESSMENT: 1. End-stage renal disease on hemodialysis on a Thursday, , Thursday schedule. Patient can be dialyzed tomorrow. 2. Fluid overload, currently improved. I will repeat another chest x-ray today. 3. Hyperkalemia status post emergent dialysis yesterday. The patient will be dialyzed again tomorrow. She is advised regarding low-potassium diet. Her blood sugars have been slightly on the high side, staying at 211-169. This is definitely contributing to the hyperkalemia as well. 4. Chronic kidney disease mineral bone disorder. 5. Hypertension currently uncontrolled. The patient is maintained on hydralazine and metoprolol, clonidine, and Norvasc. We can increase the Lopressor further to 75 mg b.i.d. Her heart rate is not low. I expect further improvement in blood pressure after hemodialysis tomorrow. PLAN: Hemodialysis in a.m. Maintain patient on low-potassium diet. Check chest x-ray today. Increase metoprolol if blood pressure remains elevated. Thank you for this consultation. We will continue to follow the patient with you during her hospitalization. MMSALAZARL / DARVINN: [id number] /
[2017-10-26 16:28] LABS: Glucose,Whole Blood 317 mg/dL (75-99)
[2017-10-26 20:26] LABS: Glucose,Whole Blood 302 mg/dL (75-99)
[2017-10-26] MEDS: INSULIN DETEMIR 100 UNIT/ML 10 ML VIAL SQ SCH (20:57)
[2017-10-26] MEDS: CYCLOBENZAPRINE 5 MG TAB PO SCH (20:59)
[2017-10-26] MEDS: ATORVASTATIN 40 MG TAB PO SCH (20:59)
[2017-10-26] MEDS: HYDROcodone/APAP 5-325MG 1 EACH TAB PO PRN (21:00)
--- NOTE | 2017-10-26 21:52 | PN ---
PROGRESS NOTE SUBJECTIVE: This is a 52-year-old white female who is admitted with fluid overload, hyperkalemia and end-stage renal disease, on hemodialysis Thursday, , Thursday, and fluid overload, improving with dialysis. Hyperkalemia is being treated with and her sugars improved. Hypertension is improving. Cardiovascular: S1-S2. Lungs: Rales at the bases. Hematology: Negative Homans. Psych: Fair mood and affect. Echocardiogram is ejection fraction 55-60%. Chest x-ray shows improved fluids and we will recheck labs in the morning. Try to get better glucose control. Dialysis to be done tomorrow. Await further treatment. Possibly discharged home with dialysis improves her. Hemoglobin A1c is 5.7. Continue current treatment at this point in time. MMODL / IJN: [id number] /
[2017-10-27] MEDS: traMADol 50 MG TAB PO PRN ×3 (01:26→23:00)
[2017-10-27 05:50] LABS: Glucose,Whole Blood 88 mg/dL (75-99)
[2017-10-27] MEDS: INSULIN ASPART 100 UNIT/ML 1 ML 10 ML VIAL SQ SCH ×7 (06:05→20:30)
[2017-10-27] MEDS: HYDROcodone/APAP 5-325MG 1 EACH TAB PO PRN ×3 (06:11→20:33)
[2017-10-27 06:21] LABS: Anisocytosis Slight; Basophils % (A) 1 %; Eosinophils # (A) 0.1 k/uL (0-0.7); Eosinophils % (A) 2 %; HCT 22.9 % (34.0-46.0); HGB 7.9 gm/dL (11.4-16.0); Lymphocytes # (A) 0.4 k/uL (1.0-4.8); Lymphocytes % (A) 13 %; MCH 33.4 pg (25.0-35.0); MCHC 34.5 g/dL (31.0-37.0); Macrocytosis Slight; Mean Platelet Volume 7.8; Monocytes # (A) 0.2 k/uL (0-1.0); Monocytes % (A) 6 %; Neutrophils # (A) 2.1 k/uL (1.3-7.7); Neutrophils % (A) 76 %; Platelet Count 106 k/uL (150-450); Poikilocytosis Slight; RBC 2.36 m/uL (3.80-5.40); RDW 17.8 % (11.5-15.5); WBC 2.8 k/uL (3.8-10.6)
[2017-10-27 06:32] LABS: Albumin 4.5 g/dL (3.5-5.0); Calcium 9.6 mg/dL (8.4-10.2); Potassium 5.4 mmol/L (3.5-5.1); Total Bilirubin 1.3 mg/dL (0.2-1.3)
[2017-10-27] MEDS: SEVELAMER 800 MG TAB PO SCH ×3 (07:02→17:55)
[2017-10-27] MEDS: PROCHLORPERAZINE 5 MG TAB PO PRN (07:03)
[2017-10-27] MEDS: amLODIPine 10 MG TAB PO SCH (08:25)
[2017-10-27] MEDS: FOLIC ACID-VIT B COMPLEX-VIT C 1 CAP PO SCH (08:25)
[2017-10-27] MEDS: CHOLECALCIFEROL 1,000 UNIT TAB PO SCH (08:25)
[2017-10-27] MEDS: METOPROLOL TARTRATE 50 MG TAB PO SCH ×2 (08:26→20:32)
[2017-10-27] MEDS: hydrALAZINE HCL 50 MG TAB PO SCH ×3 (08:26→20:31)
[2017-10-27] MEDS: VITAMIN E (DL,TOCOPHERYL ACET) 400 UNIT CAP PO SCH (08:26)
[2017-10-27] MEDS: GABAPENTIN 100 MG CAP PO SCH ×3 (08:26→20:32)
[2017-10-27] MEDS: PANTOPRAZOLE 40 MG TABLET PO SCH (08:27)
[2017-10-27] MEDS: MAGNESIUM OXIDE 400 MG TAB PO SCH ×2 (08:27→20:32)
[2017-10-27] MEDS: levOCARNitine (WITH SUGAR) 100 MG/ML BOTTLE PO SCH ×2 (08:28→20:32)
[2017-10-27] MEDS: cloNIDine HCL 0.1 MG TAB PO SCH ×3 (08:28→20:32)
[2017-10-27] MEDS: FUROSEMIDE 10 MG/ML 10 ML VIAL IV SCH ×2 (08:28→20:31)
[2017-10-27 11:50] LABS: Glucose,Whole Blood 132 mg/dL (75-99)
--- NOTE | 2017-10-27 14:04 | P.CNPUL ---
History of Present Illness Consult date: 10/27/17 Reason for consult: dyspnea, cough, other Chief complaint: Hemoptysis off and on since June 2017 History of present illness: 52-year-old female who has extensive history of smoking and nicotine use about half to 1 pack per day for about 25-30 years the patient presented into the hospital with increasing shortness of breath thought to be related to fluid overload patient required emergent hemodialysis significant responded and now almost back to baseline but still have shortness of breath severity has improved patient has intermittent dry nonproductive cough most of time on arrival however patient is some clumps and streaks of blood is lasted couple of days and today however she denies any hemoptysis he associates these episodes of hemoptysis to her episodes of fluid overload and other episodes significant was noted somewhere around June 2017 when she had pneumonia. She denies any night sweats or fever or chills denies any significant weight loss her appetite has been good otherwise she gets her hemodialysis and Thursday and Thursday, patient was admitted on Thursday with hemodialysis on Thursday however no fluid was removed according to patient it was felt that she has not gained any weight, patient denies any seizure-like to a loss of consciousness) denies any night sweats or fever or chills and denies any bowel or bladder dysfunction except as noted above Review of Systems All systems: negative Past Medical History Past Medical History: Blood Disorder, Heart Failure, Diabetes Mellitus, Dialysis , Hyperlipidemia, Hypertension, Liver Disease, Pneumonia, Renal Disease Additional Past Medical History / Comment(s): Current R eye infection, bilateral cataracts, bilateral retinal hemorrhages, hypertriglyceridemia- induced acute pancreatitis, THEN necrotizing pancreatitis. hemodialysis for acute kidney injury 2 months in 2009 after pancreatic OR, 11/2015 diagnosed w/ chronic kidney disease-hemodialysis //, IDDM type II, pt states she has dry heaves day after dialysis, chronic anemia, body cramping when blood sugars are high, occasional low back pain, carter's palsy x2, past L leg fx. History of Any Multi-Drug Resistant Organisms: None Reported Past Surgical History: Orthopedic Surgery, Uterine Ablation Additional Past Surgical History / Comment(s): 08/26/17 colonoscopy with polypectomy/bx, pancreatic resection at [facility] 2009, bone marrow biopsies X2-last one 05/19/16,. dialysis chest port x 2 with removals, Left arm shunt placement for dialysis - December 2015 and a revision done with shunt/ Past Anesthesia/Blood Transfusion Reactions: No Reported Reaction Additional Past Anesthesia/Blood Transfusion Reaction / Comment(s): Pt has received blood transfusions without reaction. Past Psychological History: No Psychological Hx Reported Additional Psychological History / Comment(s): Pt resides at her mother in laws home at this time with spouse. They are her mother in laws caretakers. She is independent. She uses no assistive device. She drives. Smoking Status: Never smoker Past Alcohol Use History: None Reported Additional Past Alcohol Use History / Comment(s): Patient is a lifelong nonsmoker. Past Drug Use History: None Reported - Past Family History Brother(s) Family Medical History: No Reported History Mother Family Medical History: Cancer, Diabetes Mellitus, Hypertension Additional Family Medical History / Comment(s): Mother of throat cancer at the age of 63 yrs. She was a smoker. Father Family Medical History: Coronary Artery Disease (CAD), Hyperlipidemia, Hypertension Additional Family Medical History / Comment(s): Father is 70 yrs old. Medications and Allergies Home Medications Medication Instructions Recorded Confirmed Type Atorvastatin [Lipitor] 40 mg PO HS 09/14/15 10/25/17 History Cyclobenzaprine [Flexeril] 5 mg PO HS 09/14/15 10/25/17 History Magnesium Gluconate [Magonate] 500 mg PO BID 09/14/15 10/25/17 History Insulin Glargine [Lantus] 80 unit SQ HS 04/18/16 10/25/17 History Prochlorperazine [Compazine] 5 mg PO BID PRN 05/14/16 10/25/17 History hydrALAZINE HCL [Apresoline] 100 mg PO TID #180 tab 06/10/16 10/25/17 Rx Sevelamer [Renvela] 2,400 mg PO AC-TID 12/16/16 10/25/17 History cloNIDine HCL 0.3 mg PO TID 12/16/16 10/25/17 History rOPINIRole HCL [Requip] 1 mg PO TID 02/07/17 10/25/17 History Levocarnitine (with Sugar) 300 mg PO BID #118 ml 02/11/17 10/25/17 Rx [Levocarnitine 1 G/10 ml Oral Soln] B Complex W-C No.20/Folic Acid 1 mg PO DAILY 08/21/17 10/25/17 History [Renal Caps Softgel] Gabapentin [Neurontin] 100 mg PO TID 08/21/17 10/25/17 History Lactulose [Constulose] 10 gm PO TID PRN 08/21/17 10/25/17 History Sevelamer [Renvela] 800 mg PO DAILY PRN 08/21/17 10/25/17 History traMADol HCl [Ultram] 50 mg PO Q4H PRN 08/21/17 10/25/17 History Lidocaine-Prilocaine Cream [Emla 1 applic TOPICAL TUTHSA PRN 09/21/17 10/25/17 History Cream 2.5%/2.5%] HYDROcodone/APAP 5-325MG [[place] 1 tab PO Q8HR PRN #45 tab 09/24/17 10/25/17 Rx 5-325] INSULIN LISPRO (HumaLOG) [HumaLOG] 16 units SQ AC-TID 10/06/17 10/25/17 History INSULIN LISPRO (HumaLOG) [HumaLOG] See Protocol SQ ACHS PRN 10/06/17 10/25/17 History amLODIPine [Norvasc] 10 mg PO DAILY 10/06/17 10/25/17 History Cholecalciferol [Vitamin D3] 2,000 unit PO TUTHSA 10/22/17 10/25/17 History Furosemide [Lasix] 80 mg PO BID 10/22/17 10/25/17 History Metoprolol Tartrate [Lopressor] 50 mg PO BID 10/22/17 10/25/17 History Omeprazole 20 mg PO DAILY 10/22/17 10/25/17 History Vitamin E (Dl,Tocopheryl Acet) 400 unit PO DAILY 10/22/17 10/25/17 History [Vitamin E] Prochlorperazine [Compazine] 5 mg PO BID PRN 10/26/17 10/26/17 History Allergies Allergy/AdvReac Type Severity Reaction Status Date / Time ciprofloxacin [From Cipro] AdvReac AFFECTED Verified 10/25/17 14:01 EYESIGHT ciprofloxacin HCl AdvReac AFFECTED Verified 10/25/17 14:01 [From Cipro] EYESIGHT Iodinated Contrast- Oral and AdvReac RENAL Verified 10/25/17 14:01 IV Dye FAILURE Physical Exam Vitals: Vital Signs Temp Pulse Resp BP Pulse Ox 10/27/17 08:00 97.2 F L 76 18 149/74 98 10/27/17 04:00 70 18 154/72 98 10/27/17 00:00 79 18 155/79 95 10/26/17 20:00 98 F 81 18 183/83 96 10/26/17 16:00 98.3 F 76 16 154/73 100 Intake and Output 10/26/17 10/27/17 10/27/17 22:59 06:59 14:59 Intake Total 118 Output Total 600 325 Balance -600 -325 118 Intake: Oral 118 Output: Urine 600 325 Other: Voiding Method Toilet Toilet # Voids 1 Weight 75.5 kg General appearance: alert, in no apparent distress Head exam: Present: atraumatic, normocephalic Eye exam: Present: normal appearance, PERRL Neck exam: Present: normal inspection. Absent: tenderness, meningismus Respiratory exam: Present: respiratory distress, rales, decreased breath sounds Cardiovascular Exam: Present: regular rate, normal rhythm GI/Abdominal exam: Present: soft. Absent: distended, tenderness, guarding Extremities exam: Present: pedal edema Back exam: Present: normal inspection Neurological exam: Present: alert, oriented X3, CN II-XII intact. Absent: motor sensory deficit Psychiatric exam: Present: normal affect, normal mood Skin exam: Present: warm, dry, intact. Absent: cyanosis, diaphoretic Results - Laboratory Findings CBC and BMP: 10/27/17 05:58 10/27/17 05:58 PT/INR, D-dimer PT 10.0 sec (9.0-12.0) 10/25/17 12:57 INR 1.0 (<1.2) 10/25/17 12:57 Abnormal lab findings: Abnormal Labs 10/25/17 10/25/17 10/25/17 11:59 11:59 11:59 WBC RBC 2.39 L Hgb 8.2 L Hct 23.8 L RDW 18.4 H Plt Count 96 L Lymphocytes # 0.4 L Sodium Potassium 6.5 H* Chloride 93 L Carbon Dioxide BUN 45 H Creatinine 6.21 H* Glucose 211 H POC Glucose (mg/dL) AST 46 H Total Creatine Kinase 173 H 10/25/17 10/25/17 10/25/17 12:55 17:11 20:44 WBC RBC Hgb Hct RDW Plt Count Lymphocytes # Sodium Potassium 7.3 H* Chloride 92 L Carbon Dioxide 31 H BUN 44 H Creatinine 6.50 H* Glucose 175 H POC Glucose (mg/dL) 143 H 295 H AST Total Creatine Kinase 10/26/17 10/26/17 10/26/17 05:50 05:54 11:23 WBC RBC Hgb Hct RDW Plt Count Lymphocytes # Sodium 136 L Potassium 5.2 H Chloride 92 L Carbon Dioxide BUN 48 H Creatinine 6.08 H* Glucose 169 H POC Glucose (mg/dL) 182 H 300 H AST Total Creatine Kinase 10/26/17 10/26/17 10/27/17 16:07 20:25 05:58 WBC 2.8 L RBC 2.36 L Hgb 7.9 L Hct 22.9 L RDW 17.8 H Plt Count 106 L Lymphocytes # 0.4 L Sodium Potassium Chloride Carbon Dioxide BUN Creatinine Glucose POC Glucose (mg/dL) 317 H 302 H AST Total Creatine Kinase 10/27/17 10/27/17 05:58 11:42 WBC RBC Hgb Hct RDW Plt Count Lymphocytes # Sodium 136 L Potassium 5.4 H Chloride 92 L Carbon Dioxide BUN 68 H Creatinine 8.50 H* Glucose POC Glucose (mg/dL) 132 H AST Total Creatine Kinase - Diagnostic Findings Chest x-ray: report reviewed, image reviewed (Chest x-ray performed on October 24 and October 26 reviewed and compared cardiomegaly remains unchanged along with interstitial edema the infiltrates and by basilar pleural effusion however has improved) Assessment and Plan Assessment: Hemoptysis chronic with multiple intermittent episode likely related to airway inflammation, doubt pneumonia, appears to have temporal relationship with volume overload Acute exacerbation of congestive heart failure likely acute diastolic heart failure Fluid overload related to renal failure Uncontrolled hypertension hypertensive urgency in emergency Bilateral pleural effusion related to above Chronic renal failure stage V, on hemodialysis Extensive history of smoking and nicotine use likely suspect presence of the COPD and emphysema Plan: Diuresis as tolerated Hemodialysis per renal service Will arrange a computed tomography scan of his chest without contrast Monitor observe clinical course closely if evidence of fever or leukocytosis of persistent hemoptysis seen consider starting broad-spectrum antibiotic Deep breathing exercise incentive spirometry Further evaluation or outpatient setting Further recommendations pending plan of care as per clinical response of the patient especially after hemodialysis Time with Patient: Greater than 30
--- NOTE | 2017-10-27 14:38 | PN ---
PROGRESS NOTE Patient is seen for followup for end-stage renal disease. She is scheduled for hemodialysis today. The patient was admitted to the hospital with fluid overload. She states she is feeling better. No complaints of chest pains. PHYSICAL EXAMINATION: Blood pressure is 149/74, heart rate 76 per minute, she is afebrile. Examination of the heart S1, S2. Examination of lungs: Breath sounds are heard. Abdomen is soft, nontender. Exam of the lower extremities shows no evidence of edema. [employer] exam is grossly intact. LAB: Shows sodium 136, potassium 5.4, chloride 92, BUN 68, serum creatinine 0.5, hemoglobin g/dL. ASSESSMENT: 1. End-stage renal disease, on hemodialysis on Thursday, , Thursday schedule. Patient will be dialyzed today. 2. Fluid overload, currently improved. Chest x-ray from yesterday showed significant improvement. We will try again for possibly today. 3. Hyperkalemia, currently improved. The patient is advised regarding avoiding high potassium foods. 4. Anemia. There is no active bleeding noted. Hemoglobin is slightly lower. We will give her a dose of Aranesp prior to discharge. 5. Chronic kidney disease mineral bone disorder, maintained on Renvela. 6. Diabetes, currently on insulin. 7. Hypertension, currently controlled. PLAN: 1. Hemodialysis today, UF of about 3 L and we can give a dose of Aranesp prior to discharge. 2. The patient is stable for discharge from Nephrology standpoint. MMODL / IJN: [id number] /
[2017-10-27] MEDS ORDERED: DARBEPOETIN ALFA 40 MCG/0.4 ML SYRINGE SQ SCH (15:00)
[2017-10-27 16:44] LABS: Glucose,Whole Blood 123 mg/dL (75-99)
--- NOTE | 2017-10-27 18:44 | CT ---
EXAMINATION TYPE: CT chest wo con DATE OF EXAM: 10/27/2017 COMPARISON: 06/08/2016 HISTORY: Chest pain with Hemoptysis CT DLP: 540 mGycm. Automated Exposure Control for Dose Reduction was Utilized. TECHNIQUE: CT scan of the thorax is performed without IV contrast. FINDINGS: There are patchy areas of groundglass interstitial infiltrate in both lungs. There is no evidence of a pulmonary mass. There is no pleural effusion. There is a large pericardial effusion. There is no me diastinal adenopathy. There are no hilar masses. Bony thorax appears intact. IMPRESSION: Interstitial pulmonary infiltrates. There is some clearing of the nodular upper lobe pulm onary infiltrates compared to old exam. No new pulmonary density. This is consistent with primary fib rosis. There is pericardial effusion is increased slightly compared to old exam.
[2017-10-27 20:23] LABS: Glucose,Whole Blood 198 mg/dL (75-99)
[2017-10-27] MEDS: INSULIN DETEMIR 100 UNIT/ML 10 ML VIAL SQ SCH (20:30)
[2017-10-27] MEDS: ATORVASTATIN 40 MG TAB PO SCH (20:32)
[2017-10-27] MEDS: CYCLOBENZAPRINE 5 MG TAB PO SCH (20:32)
[2017-10-28 06:01] LABS: Glucose,Whole Blood 193 mg/dL (75-99)
[2017-10-28] MEDS: SEVELAMER 800 MG TAB PO SCH ×3 (06:53→17:41)
[2017-10-28] MEDS: PROCHLORPERAZINE 5 MG TAB PO PRN (07:26)
[2017-10-28] MEDS: INSULIN ASPART 100 UNIT/ML 1 ML 10 ML VIAL SQ SCH ×7 (07:27→21:22)
[2017-10-28] MEDS: FOLIC ACID-VIT B COMPLEX-VIT C 1 CAP PO SCH (08:17)
[2017-10-28] MEDS: VITAMIN E (DL,TOCOPHERYL ACET) 400 UNIT CAP PO SCH (08:17)
[2017-10-28] MEDS: amLODIPine 10 MG TAB PO SCH (08:18)
[2017-10-28] MEDS: MAGNESIUM OXIDE 400 MG TAB PO SCH ×2 (08:18→21:09)
[2017-10-28] MEDS: cloNIDine HCL 0.1 MG TAB PO SCH ×3 (08:18→21:09)
[2017-10-28] MEDS: HYDROcodone/APAP 5-325MG 1 EACH TAB PO PRN ×2 (08:18→21:21)
[2017-10-28] MEDS: GABAPENTIN 100 MG CAP PO SCH ×3 (08:18→21:09)
[2017-10-28] MEDS: PANTOPRAZOLE 40 MG TABLET PO SCH (08:18)
[2017-10-28] MEDS: hydrALAZINE HCL 50 MG TAB PO SCH ×3 (08:18→21:09)
[2017-10-28] MEDS: levOCARNitine (WITH SUGAR) 100 MG/ML BOTTLE PO SCH ×2 (08:19→21:08)
[2017-10-28] MEDS: METOPROLOL TARTRATE 50 MG TAB PO SCH ×2 (08:19→21:09)
[2017-10-28] MEDS: FUROSEMIDE 10 MG/ML 10 ML VIAL IV SCH ×2 (08:19→21:08)
[2017-10-28 09:30] LABS: Anisocytosis Slight; Basophils % (A) 1 %; Eosinophils # (A) 0.1 k/uL (0-0.7); Eosinophils % (A) 3 %; HCT 24.2 % (34.0-46.0); HGB 8.3 gm/dL (11.4-16.0); Lymphocytes # (A) 0.4 k/uL (1.0-4.8); Lymphocytes % (A) 11 %; MCHC 34.5 g/dL (31.0-37.0); MCV 98.7 fL (80.0-100.0); Macrocytosis Slight; Mean Platelet Volume 7.2; Monocytes # (A) 0.3 k/uL (0-1.0); Monocytes % (A) 10 %; Neutrophils # (A) 2.4 k/uL (1.3-7.7); Neutrophils % (A) 75 %; Platelet Count 119 k/uL (150-450); Poikilocytosis Slight; RBC 2.45 m/uL (3.80-5.40); RDW 17.9 % (11.5-15.5); WBC 3.2 k/uL (3.8-10.6)
[2017-10-28 11:29] LABS: Glucose,Whole Blood 282 mg/dL (75-99)
--- NOTE | 2017-10-28 14:06 | PN ---
PROGRESS NOTE The patient is seen for followup for end-stage renal disease. She states she feels well. The patient had a lung CT done which showed possible pulmonary fibrosis. She is being followed by pulmonology. PHYSICAL EXAMINATION: Blood pressure is 146/70, heart rate 81 per minute. She is afebrile. Examination of the heart: S1, S2. Examination lungs: Bilateral breath sounds are heard. Abdomen is soft, nontender. Exam of lower extremities shows no evidence of edema. Skin exam is grossly intact. LABS: Show sodium 130, potassium 6.0, BUN 64, serum creatinine is 6.8, hemoglobin 8.3 g/dL. ASSESSMENT: 1. End-stage renal disease, on hemodialysis on a Thursday, , Thursday schedule. The patient will be dialyzed tomorrow. 2. Hyperkalemia, improved since admission. However, serum potassium is again elevated at 6.0. There is no ongoing GI bleed. The patient is maintained on a low-potassium diet. She is not on any medications to potentiate for hyperkalemia. I will maintain her on loop diuretics which can help to keep the potassium lower. Definitely the hyperglycemia has also exacerbated the hyperkalemia as serum glucose was 365 mg. 3. Anemia of chronic disease. Hemoglobin is fairly stable. 4. Fluid overload currently improved. 5. Possible pulmonary fibrosis being followed by pulmonology, status post lung CT. PLAN: Controlled blood sugars and avoid hyperglycemia which will exacerbate the hyperkalemia. We will arrange for hemodialysis in the a.m. following which patient could be discharged from Nephrology standpoint. She should continue to maintain a low-potassium diet and I will start her on loop diuretics. MMODL / IJN: [id number] /
--- NOTE | 2017-10-28 14:18 | P.PN ---
Subjective Progress Note Date: 10/28/17 Principal diagnosis: Hemoptysis likely related to airway inflammation along with pulmonary edema and fluid overload, acute on chronic renal failure, uncontrolled hypertension, pleural pericardial effusion likely related to chronic renal failure 10/28/2017, patient seen eval examined during the rounds clinically patient has been doing well in terms of breathing no episodes of hemoptysis is seen patient does have intermittent cough but is dry and nonproductive denies any chest pain or shortness of breath breathing comfortably computed tomography scan of the chest performed reviewed my echocardiogram results and reports reviewed as well , CT revealed patchy groundglass attenuation bilateral likely related to interstitial edema no pleural effusion is seen however large pericardial effusion is is noted which was seen on echocardiogram as well, suspect related to chronic renal failure, some element of pulmonary fibrosis is noted to be evaluated further outpatient setting some nodularity in the upper lobes are seen which will be monitor observe an outpatient setting 52-year-old female who has extensive history of smoking and nicotine use about half to 1 pack per day for about 25-30 years the patient presented into the hospital with increasing shortness of breath thought to be related to fluid overload patient required emergent hemodialysis significant responded and now almost back to baseline but still have shortness of breath severity has improved patient has intermittent dry nonproductive cough most of time on arrival however patient is some clumps and streaks of blood is lasted couple of days and today however she denies any hemoptysis he associates these episodes of hemoptysis to her episodes of fluid overload and other episodes significant was noted somewhere around June 2017 when she had pneumonia. She denies any night sweats or fever or chills denies any significant weight loss her appetite has been good otherwise she gets her hemodialysis and Thursday and Thursday, patient was admitted on Thursday with hemodialysis on Thursday however no fluid was removed according to patient it was felt that she has not gained any weight, patient denies any seizure-like to a loss of consciousness) denies any night sweats or fever or chills and denies any bowel or bladder dysfunction except as noted above Objective - Vital Signs Vital signs: Vital Signs Temp 98.3 F 10/28/17 08:00 Pulse 70 10/28/17 12:00 Resp 16 10/28/17 12:00 BP 133/75 10/28/17 12:00 Pulse Ox 95 10/28/17 12:00 Intake & Output 10/27/17 10/28/17 10/28/17 18:59 06:59 18:59 Intake Total 368 240 Output Total 625 Balance 368 -625 240 Weight 73.4 kg Intake: Oral 368 240 Output: Urine 625 Other: Voiding Method Toilet Toilet # Voids 1 1 - Exam General appearance: alert, in no apparent distress Head exam: Present: atraumatic, normocephalic Eye exam: Present: normal appearance, PERRL Neck exam: Present: normal inspection. Absent: tenderness, meningismus Respiratory exam: Present: respiratory distress, rales, decreased breath sounds Cardiovascular Exam: Present: regular rate, normal rhythm GI/Abdominal exam: Present: soft. Absent: distended, tenderness, guarding Extremities exam: Present: pedal edema Back exam: Present: normal inspection Neurological exam: Present: alert, oriented X3, CN II-XII intact. Absent: motor sensory deficit Psychiatric exam: Present: normal affect, normal mood Skin exam: Present: warm, dry, intact. Absent: cyanosis, diaphoretic - Labs CBC & Chem 7: 10/28/17 09:01 10/28/17 09:01 Labs: Abnormal Lab Results - Last 24 Hours (Table) 10/27/17 10/27/17 10/28/17 Range/Units 16:40 20:22 05:59 WBC (3.8-10.6) k/uL RBC (3.80-5.40) m/uL Hgb (11.4-16.0) gm/dL Hct (34.0-46.0) % RDW (11.5-15.5) % Plt Count (150-450) k/uL Lymphocytes # (1.0-4.8) k/uL Sodium (137-145) mmol/L Potassium (3.5-5.1) mmol/L Chloride (98-107) mmol/L BUN (7-17) mg/dL Creatinine (0.52-1.04) mg/dL Glucose (74-99) mg/dL POC Glucose (mg/dL) 123 H 198 H 193 H (75-99) mg/dL 10/28/17 10/28/17 10/28/17 Range/Units 09:01 09:01 11:27 WBC 3.2 L (3.8-10.6) k/uL RBC 2.45 L (3.80-5.40) m/uL Hgb 8.3 L (11.4-16.0) gm/dL Hct 24.2 L (34.0-46.0) % RDW 17.9 H (11.5-15.5) % Plt Count 119 L (150-450) k/uL Lymphocytes # 0.4 L (1.0-4.8) k/uL Sodium 130 L (137-145) mmol/L Potassium 6.0 H (3.5-5.1) mmol/L Chloride 89 L (98-107) mmol/L BUN 54 H (7-17) mg/dL Creatinine 6.80 H* (0.52-1.04) mg/dL Glucose 365 H (74-99) mg/dL POC Glucose (mg/dL) 282 H (75-99) mg/dL Assessment and Plan Assessment: Hemoptysis chronic with multiple intermittent episode likely related to airway inflammation, doubt pneumonia, appears to have temporal relationship with volume overload Pulmonary fibrosis Pericardial effusion Nodular upper lobe infiltrate likely related to interstitial edema and fluid overload, doubt pneumonia Acute exacerbation of congestive heart failure likely acute diastolic heart failure Fluid overload related to renal failure Uncontrolled hypertension hypertensive urgency in emergency Bilateral pleural effusion related to above Chronic renal failure stage V, on hemodialysis Extensive history of smoking and nicotine use likely suspect presence of the COPD and emphysema Plan: Diuresis as tolerated Hemodialysis per renal service Will arrange a computed tomography scan of his chest without contrast Monitor observe clinical course closely if evidence of fever or leukocytosis of persistent hemoptysis seen consider starting broad-spectrum antibiotic Deep breathing exercise incentive spirometry Further evaluation or outpatient setting Further recommendations pending plan of care as per clinical response of the patient especially after hemodialysis We'll defer evaluation of pericardial effusion to renal and primary service Time with Patient: Greater than 30
[2017-10-28] MEDS: METOLAZONE 5 MG TAB PO SCH (15:04)
[2017-10-28 16:45] LABS: Glucose,Whole Blood 238 mg/dL (75-99)
[2017-10-28 18:45] VITALS: RESP 16
[2017-10-28] MEDS: ATORVASTATIN 40 MG TAB PO SCH (21:08)
[2017-10-28] MEDS: INSULIN DETEMIR 100 UNIT/ML 10 ML VIAL SQ SCH (21:08)
[2017-10-28] MEDS: CYCLOBENZAPRINE 5 MG TAB PO SCH (21:08)
[2017-10-28 21:09] LABS: Glucose,Whole Blood 284 mg/dL (75-99)
--- NOTE | 2017-10-28 23:24 | PN ---
PROGRESS NOTE SUBJECTIVE: This is a 52-year-old white female with fluid overload, hypertension, congestive heart failure, diastolic, end-stage renal disease. The patient was held over for discharge until tomorrow due to hyperkalemia. Potassium is 6. CARDIOVASCULAR: S1, S2. LUNGS: Clear. GI: Soft. HEMATOLOGY: Negative Homans. ASSESSMENT: 1. Hyperkalemia. 2. End-stage renal disease. 3. Fluid overload. 4. Diastolic heart failure. Please see further orders. MMODL / IJN: [id number] /
[2017-10-29] MEDS: HYDROcodone/APAP 5-325MG 1 EACH TAB PO PRN ×2 (03:33→14:09)
[2017-10-29 06:15] LABS: Glucose,Whole Blood 137 mg/dL (75-99)
[2017-10-29 06:55] LABS: Glucose,Whole Blood 126 mg/dL (75-99)
[2017-10-29] MEDS: INSULIN ASPART 100 UNIT/ML 1 ML 10 ML VIAL SQ SCH ×4 (07:23→14:09)
[2017-10-29] MEDS: FUROSEMIDE 10 MG/ML 10 ML VIAL IV SCH (07:30)
[2017-10-29] MEDS: SEVELAMER 800 MG TAB PO SCH ×2 (07:30→13:13)
[2017-10-29] MEDS: cloNIDine HCL 0.1 MG TAB PO SCH ×2 (07:31→16:45)
[2017-10-29] MEDS: hydrALAZINE HCL 50 MG TAB PO SCH ×2 (07:31→16:45)
[2017-10-29] MEDS: GABAPENTIN 100 MG CAP PO SCH ×2 (07:32→16:18)
[2017-10-29] MEDS: METOLAZONE 5 MG TAB PO SCH (07:32)
[2017-10-29] MEDS: FOLIC ACID-VIT B COMPLEX-VIT C 1 CAP PO SCH (07:32)
[2017-10-29] MEDS: MAGNESIUM OXIDE 400 MG TAB PO SCH (07:32)
[2017-10-29] MEDS: METOPROLOL TARTRATE 50 MG TAB PO SCH (07:33)
[2017-10-29] MEDS: PANTOPRAZOLE 40 MG TABLET PO SCH (07:34)
[2017-10-29] MEDS: CHOLECALCIFEROL 1,000 UNIT TAB PO SCH (07:35)
[2017-10-29] MEDS: VITAMIN E (DL,TOCOPHERYL ACET) 400 UNIT CAP PO SCH (07:35)
[2017-10-29] MEDS: amLODIPine 10 MG TAB PO SCH (07:41)
[2017-10-29] MEDS: levOCARNitine (WITH SUGAR) 100 MG/ML BOTTLE PO SCH (07:41)
[2017-10-29] MEDS: traMADol 50 MG TAB PO PRN (08:29)
[2017-10-29 12:30] LABS: Glucose,Whole Blood 111 mg/dL (75-99)
--- NOTE | 2017-10-29 14:30 | P.PN ---
Subjective Progress Note Date: 10/29/17 Principal diagnosis: Hemoptysis likely related to airway inflammation along with pulmonary edema and fluid overload, acute on chronic renal failure, uncontrolled hypertension, pleural pericardial effusion likely related to chronic renal failure 10/29/2017, patient seen eval examined during during the rounds clinically patient has been doing well awake and alert breathing comfortably no obvious distress is present patient is undergoing hemodialysis denies any hemoptysis is still have mild degree or shortness of breath and dry nonproductive cough but denies any significant sputum production breathing more comfortably, swelling in the lower extremity has improved as well 10/28/2017, patient seen eval examined during the rounds clinically patient has been doing well in terms of breathing no episodes of hemoptysis is seen patient does have intermittent cough but is dry and nonproductive denies any chest pain or shortness of breath breathing comfortably computed tomography scan of the chest performed reviewed my echocardiogram results and reports reviewed as well , CT revealed patchy groundglass attenuation bilateral likely related to interstitial edema no pleural effusion is seen however large pericardial effusion is is noted which was seen on echocardiogram as well, suspect related to chronic renal failure, some element of pulmonary fibrosis is noted to be evaluated further outpatient setting some nodularity in the upper lobes are seen which will be monitor observe an outpatient setting 52-year-old female who has extensive history of smoking and nicotine use about half to 1 pack per day for about 25-30 years the patient presented into the hospital with increasing shortness of breath thought to be related to fluid overload patient required emergent hemodialysis significant responded and now almost back to baseline but still have shortness of breath severity has improved patient has intermittent dry nonproductive cough most of time on arrival however patient is some clumps and streaks of blood is lasted couple of days and today however she denies any hemoptysis he associates these episodes of hemoptysis to her episodes of fluid overload and other episodes significant was noted somewhere around June 2017 when she had pneumonia. She denies any night sweats or fever or chills denies any significant weight loss her appetite has been good otherwise she gets her hemodialysis and Thursday and Thursday, patient was admitted on Thursday with hemodialysis on Thursday however no fluid was removed according to patient it was felt that she has not gained any weight, patient denies any seizure-like to a loss of consciousness) denies any night sweats or fever or chills and denies any bowel or bladder dysfunction except as noted above Objective - Vital Signs Vital signs: Vital Signs Temp 97.0 F L 10/29/17 06:15 Pulse 74 10/29/17 06:15 Resp 16 10/29/17 06:15 BP 154/71 10/29/17 06:15 Pulse Ox 97 10/29/17 06:15 Intake & Output 10/28/17 10/29/17 10/29/17 18:59 06:59 18:59 Intake Total 956 Output Total 450 150 Balance 506 -150 Intake: Oral 956 Output: Urine 450 150 Other: Voiding Method Toilet Toilet # Voids 1 2 - Exam General appearance: alert, in no apparent distress Head exam: Present: atraumatic, normocephalic Eye exam: Present: normal appearance, PERRL Neck exam: Present: normal inspection. Absent: tenderness, meningismus Respiratory exam: Present: respiratory distress, rales, decreased breath sounds Cardiovascular Exam: Present: regular rate, normal rhythm GI/Abdominal exam: Present: soft. Absent: distended, tenderness, guarding Extremities exam: Present: pedal edema Back exam: Present: normal inspection Neurological exam: Present: alert, oriented X3, CN II-XII intact. Absent: motor sensory deficit Psychiatric exam: Present: normal affect, normal mood Skin exam: Present: warm, dry, intact. Absent: cyanosis, diaphoretic - Labs CBC & Chem 7: 10/28/17 09:01 10/28/17 09:01 Labs: Abnormal Lab Results - Last 24 Hours (Table) 10/28/17 10/28/17 10/29/17 Range/Units 16:41 21:07 06:11 POC Glucose (mg/dL) 238 H 284 H 137 H (75-99) mg/dL 10/29/17 10/29/17 Range/Units 06:52 12:27 POC Glucose (mg/dL) 126 H 111 H (75-99) mg/dL Assessment and Plan Assessment: Hemoptysis chronic with multiple intermittent episode likely related to airway inflammation, doubt pneumonia, appears to have temporal relationship with volume overload Pulmonary fibrosis Pericardial effusion Nodular upper lobe infiltrate likely related to interstitial edema and fluid overload, doubt pneumonia Acute exacerbation of congestive heart failure likely acute diastolic heart failure Fluid overload related to renal failure Uncontrolled hypertension hypertensive urgency in emergency Bilateral pleural effusion related to above Chronic renal failure stage V, on hemodialysis Extensive history of smoking and nicotine use likely suspect presence of the COPD and emphysema Plan: Diuresis as tolerated Hemodialysis per renal service Will arrange a computed tomography scan of his chest without contrast Monitor observe clinical course closely if evidence of fever or leukocytosis of persistent hemoptysis seen consider starting broad-spectrum antibiotic Deep breathing exercise incentive spirometry Further evaluation or outpatient setting Further recommendations pending plan of care as per clinical response of the patient especially after hemodialysis We'll defer evaluation of pericardial effusion to renal and primary service Agree with discharge planning with follow-up on outpatient setting Time with Patient: Greater than 30
--- NOTE | 2017-10-29 14:37 | PN ---
PROGRESS NOTE Patient is seen for followup for end-stage renal disease. She currently feels very well. The patient denies any shortness of breath. PHYSICAL EXAMINATION: Blood pressure is 154/71, heart rate 74 per minute. She is afebrile. Examination of the heart: S1, S2. Examination lungs: Bilateral breath sounds are heard. Abdomen is soft, nontender. Examination lower extremities shows no evidence of edema. [employer] exam is grossly intact. LABS: From 10/28 shows sodium 130, potassium 6.0, hemoglobin 8.3 g/dL. ASSESSMENT: 1. End-stage renal disease, on hemodialysis on a Thursday, , Thursday schedule at [facility]. The patient will be dialyzed today. 2. Hyperkalemia associated with his significant hypoglycemia and end-stage renal disease. 3. Anemia of chronic disease maintained on Aranesp. Hemoglobin has been staying low. No active bleeding noted. 4. Possible pulmonary fibrosis noted on CT. The patient is being followed by Pulmonary. PLAN: Hemodialysis today. Patient is advised regarding importance of control blood sugars to help prevent significant hyperkalemia. She will be continued on low-potassium diet. The patient is stable for discharge from Nephrology standpoint post dialysis. MMODL / IJN: [id number] /
[2017-10-29 15:00] VITALS: PULSE 76; TEMP 97.7
[2017-10-29 16:34] VITALS: BP 146/67
--- NOTE | 2017-11-25 11:45 | DS ---
DISCHARGE SUMMARY DATE OF ADMISSION: 10/25/2017 DATE OF DISCHARGE: 10/29/2017 MEDICATIONS: 1. Lipitor 40 daily. 2. Magonate 500 mg b.i.d. 3. Flexeril 5 mg daily. 4. Lantus 80 units daily. 5. Compazine 5 mg b.i.d. 6. Hydralazine 100 mg t.i.d. 7. Renvela 2400 mcg a.c. t.i.d. 8. Clonidine 0.3 mg t.i.d. 9. Ropinirole 1 mg t.i.d. 10.Lactulose 10 t.i.d. 11.Neurontin 100 t.i.d. 12.Renvela 800 daily. 13.Tramadol 50 q.4 p.r.n. 14.Norvasc 10 mg daily. 15.Omeprazole 20 mg daily. 16.Metoprolol 50 b.i.d. 17.Lasix 80 b.i.d. 18.Aranesp 40 mcg subcutaneously every 7 days. 19.Metolazone 5 mg daily. CONDITION: Stable. PROGNOSIS: Guarded. Dialysis fluids will need to be adjusted as an outpatient. If she is not getting enough fluid taken off on her dialysis, she came in with diastolic fluid overload. She had increased dialysis treatments for multiple days prior to being discharged and she was cleared by pulmonary, cardiac and renal disease on discharge. DISCHARGE DIAGNOSES: 1. End-stage renal disease. 2. Hyperkalemia. 3. Anemia of chronic disease. 4. Fluid overload due to diastolic congestive heart failure and not taking enough fluid on dialysis. 5. Pulmonary fibrosis. 6. Diabetes mellitus. 7. Hypertension. 8. Dyslipidemia. Follow up as an outpatient, stabilized with multiple dialysis on discharge. MMODL / IJN: [id number] /
== END 2017-10-29 17:20 | disposition home or self-care (01) | DRG 291 ==
LOC: EC 11:34 → 6SEL 13:40 → 4MS4W 10-28 18:17
PROVIDERS: ADMIT Family Medicine; ATTEND Family Medicine
DX: I13.2 Hypertensive heart and chronic kidney disease with heart failure and with stage 5 chronic kidney disease, or end stage renal disease (principal); N18.6 End stage renal disease; I50.33 Acute on chronic diastolic (congestive) heart failure; N17.9 Acute kidney failure, unspecified; I31.3 Pericardial effusion (noninflammatory); I16.0 Hypertensive urgency; E78.1 Pure hyperglyceridemia; E78.5 Hyperlipidemia, unspecified; E87.5 Hyperkalemia; E11.22 Type 2 diabetes mellitus with diabetic chronic kidney disease; E11.65 Type 2 diabetes mellitus with hyperglycemia; J84.10 Pulmonary fibrosis, unspecified; R09.02 Hypoxemia; D63.1 Anemia in chronic kidney disease; Z79.899 Other long term (current) drug therapy; Z80.0 Family history of malignant neoplasm of digestive organs; Z82.49 Family history of ischemic heart disease and other diseases of the circulatory system; Z83.3 Family history of diabetes mellitus; Z99.2 Dependence on renal dialysis; Z87.891 Personal history of nicotine dependence; Z79.4 Long term (current) use of insulin
CPT/HCPCS: 36415; 71045; 71046; 71250; 80048; 80053; 82550; 82553; 83036; 83735; 83880; 84484; 85025; 85610; 85730; 90935; 93005; 93306; 96365; 96366; 96375; 99291

== ENCOUNTER 2017-11-05 19:29 | Emergency (ER) | payer OTHER ==
[2017-11-05 19:35] VITALS: TEMP 98.4
--- NOTE | 2017-11-05 21:32 | XR ---
EXAMINATION TYPE: XR chest 2V DATE OF EXAM: 11/05/2017 COMPARISON: 10/26/2017 HISTORY: Weakness and chest pain TECHNIQUE: Frontal and lateral views of the chest are obtained. FINDINGS: There is enlarged cardiac silhouette. There is no heart failure. Lungs are clear of infilt rate. There is no pleural effusion. IMPRESSION: Enlarged cardiac silhouette related to pericardial effusion is evident on the chest CT s can of 10/27/2017. No heart failure. No change compared to last exam.
[2017-11-05 21:34] LABS: Anisocytosis Slight; Basophils % (A) 1 %; Eosinophils % (A) 1 %; HCT 22.8 % (34.0-46.0); HGB 7.9 gm/dL (11.4-16.0); Lymphocytes # (A) 0.5 k/uL (1.0-4.8); Lymphocytes % (A) 16 %; MCH 34.7 pg (25.0-35.0); MCHC 34.5 g/dL (31.0-37.0); MCV 100.6 fL (80.0-100.0); Macrocytosis Slight; Mean Platelet Volume 7.6; Monocytes # (A) 0.2 k/uL (0-1.0); Monocytes % (A) 6 %; Neutrophils # (A) 2.3 k/uL (1.3-7.7); Neutrophils % (A) 73 %; Platelet Count 157 k/uL (150-450); Poikilocytosis Slight; RBC 2.27 m/uL (3.80-5.40); RDW 17.4 % (11.5-15.5); WBC 3.1 k/uL (3.8-10.6)
[2017-11-05 21:51] LABS: Creatine Kinase 130 U/L (30-135)
[2017-11-05 21:54] LABS: Albumin 4.3 g/dL (3.5-5.0); Calcium 9.2 mg/dL (8.4-10.2); Magnesium 2.1 mg/dL (1.6-2.3); Potassium 5.3 mmol/L (3.5-5.1); Total Bilirubin 0.7 mg/dL (0.2-1.3); Total Protein 6.7 g/dL (6.3-8.2)
[2017-11-05 22:04] LABS: Troponin I <0.012 ng/mL (0.000-0.034)
[2017-11-05 22:25] VITALS: BP 161/88; PULSE 81; RESP 16
--- NOTE | 2017-11-05 23:11 | ED ---
General Adult HPI - General Chief complaint: Recheck/Abnormal Lab/Rx Stated complaint: leg numbness/shaky-dialysis pt Time Seen by Provider: 11/05/17 20:03 Source: patient Mode of arrival: ambulatory Limitations: no limitations - History of Present Illness Initial comments: 52 years old female history of diabetes and on dialysis complaining about increased weakness of the legs, she has a history of anemia and she feels that she is anemic again at that time she feels some numbness and tingling in the legs otherwise she now she has no headaches no chest pain no shortness of breath no abdominal pain no frequency urgency dysuria she does have anemia the most probably a chronic renal failure she recently had a clot colonoscopy and EGD that was normal - Related Data Home Medications Medication Instructions Recorded Confirmed Atorvastatin [Lipitor] 40 mg PO HS 09/14/15 11/05/17 Cyclobenzaprine [Flexeril] 5 mg PO HS 09/14/15 11/05/17 Magnesium Gluconate [Magonate] 500 mg PO BID 09/14/15 11/05/17 Insulin Glargine [Lantus] 80 unit SQ HS 04/18/16 11/05/17 Sevelamer [Renvela] 2,400 mg PO AC-TID 12/16/16 11/05/17 cloNIDine HCL 0.3 mg PO TID 12/16/16 11/05/17 rOPINIRole HCL [Requip] 1 mg PO TID 02/07/17 11/05/17 B Complex W-C No.20/Folic Acid 1 mg PO DAILY 08/21/17 11/05/17 [Renal Caps Softgel] Gabapentin [Neurontin] 100 mg PO TID 08/21/17 11/05/17 Lactulose [Constulose] 10 gm PO TID PRN 08/21/17 11/05/17 Sevelamer [Renvela] 800 mg PO DAILY PRN 08/21/17 11/05/17 traMADol HCl [Ultram] 50 mg PO Q4H PRN 08/21/17 11/05/17 Lidocaine-Prilocaine Cream [Emla 1 applic TOPICAL TUTHSA PRN 09/21/17 11/05/17 Cream 2.5%/2.5%] INSULIN LISPRO (HumaLOG) [humaLOG] 16 units SQ AC-TID 10/06/17 11/05/17 INSULIN LISPRO (HumaLOG) [humaLOG] See Protocol SQ ACHS PRN 10/06/17 11/05/17 amLODIPine [Norvasc] 10 mg PO DAILY 10/06/17 11/05/17 Cholecalciferol [Vitamin D3] 2,000 unit PO TUTHSA 10/22/17 11/05/17 Furosemide [Lasix] 80 mg PO BID 10/22/17 11/05/17 Metoprolol Tartrate [Lopressor] 50 mg PO BID 10/22/17 11/05/17 Omeprazole 20 mg PO DAILY 10/22/17 11/05/17 Vitamin E (Dl,Tocopheryl Acet) 400 unit PO DAILY 10/22/17 11/05/17 [Vitamin E] Prochlorperazine [Compazine] 5 mg PO BID PRN 10/26/17 11/05/17 Previous Rx's Medication Instructions Recorded hydrALAZINE HCL [Apresoline] 100 mg PO TID #180 tab 06/10/16 Levocarnitine (with Sugar) 300 mg PO BID #118 ml 02/11/17 [Levocarnitine 1 G/10 ml Oral Soln] HYDROcodone/APAP 5-325MG [[place] 1 tab PO Q8HR PRN #45 tab 09/24/17 5-325] Darbepoetin Drew [Aranesp] 40 mcg SQ Q7D syringe 10/29/17 Metolazone [Zaroxolyn] 5 mg PO DAILY tab 10/29/17 Nitrofurantoin Monohyd/M-Cryst 100 mg PO Q12HR #14 cap 11/06/17 [Macrobid] Allergies Allergy/AdvReac Type Severity Reaction Status Date / Time ciprofloxacin [From Cipro] AdvReac AFFECTED Verified 11/05/17 20:22 EYESIGHT ciprofloxacin HCl AdvReac AFFECTED Verified 11/05/17 20:22 [From Cipro] EYESIGHT Iodinated Contrast- Oral and AdvReac RENAL Verified 11/05/17 20:22 IV Dye FAILURE Review of Systems ROS Statement: Those systems with pertinent positive or pertinent negative responses have been documented in the HPI. ROS Other: All systems not noted in ROS Statement are negative. Past Medical History Past Medical History: Blood Disorder, Heart Failure, Diabetes Mellitus, Dialysis , Hyperlipidemia, Hypertension, Liver Disease, Pneumonia, Renal Disease Additional Past Medical History / Comment(s): Current R eye infection, bilateral cataracts, bilateral retinal hemorrhages, hypertriglyceridemia- induced acute pancreatitis, THEN necrotizing pancreatitis. hemodialysis for acute kidney injury 2 months in 2009 after pancreatic OR, 11/2015 diagnosed w/ chronic kidney disease-hemodialysis //, IDDM type II, pt states she has dry heaves day after dialysis, chronic anemia, body cramping when blood sugars are high, occasional low back pain, carter's palsy x2, past L leg fx. History of Any Multi-Drug Resistant Organisms: None Reported Past Surgical History: Orthopedic Surgery, Uterine Ablation Additional Past Surgical History / Comment(s): 08/26/17 colonoscopy with polypectomy/bx, pancreatic resection at [facility] 2009, bone marrow biopsies X2-last one 05/19/16,. dialysis chest port x 2 with removals, Left arm shunt placement for dialysis - December 2015 and a revision done with shunt/ Past Anesthesia/Blood Transfusion Reactions: No Reported Reaction Additional Past Anesthesia/Blood Transfusion Reaction / Comment(s): Pt has received blood transfusions without reaction. Past Psychological History: No Psychological Hx Reported Smoking Status: Never smoker Past Alcohol Use History: None Reported Past Drug Use History: None Reported - Past Family History Brother(s) Family Medical History: No Reported History Mother Family Medical History: Cancer, Diabetes Mellitus, Hypertension Additional Family Medical History / Comment(s): Mother of throat cancer at the age of 63 yrs. She was a smoker. Father Family Medical History: Coronary Artery Disease (CAD), Hyperlipidemia, Hypertension Additional Family Medical History / Comment(s): Father is 70 yrs old. General Exam - General Exam Comments Initial Comments: General: The patient is awake and alert, in no distress, and does not appear acutely ill. Skin: Skin is warm and dry and no rashes or lesions are noted. Eye: Pupils are equal, round and reactive to light, extra-ocular movements are intact; there is normal conjunctiva bilaterally. Ears, nose, mouth and throat: There are moist mucous membranes and no oral lesions. Neck: The neck is supple, there is no tenderness or JVD. Cardiovascular: There is a regular rate and rhythm. No murmur, rub or gallop is appreciated. Respiratory: To auscultation bilateral, no wheezing no rhonchi no distress respiratory dominique noticed Gastrointestinal: Soft, non-distended, non-tender abdomen without masses or organomegaly noted. There is no rebound or guarding present. Bowel sounds are unremarkable. Back: There is no tenderness to palpation in the midline. There is no obvious deformity. Musculoskeletal: Normal ROM, no tenderness, There is no pedal edema. There is no calf tenderness or swelling. No cords were appreciated. Neurological: CN II-XII intact, Cranial nerves III through XII are intact. There are no obvious motor or sensory deficits. Coordination appears grossly intact. Speech is normal. Psychiatric: Cooperative, appropriate mood & affect, normal judgment. Limitations: no limitations Course Vital Signs 11/05/17 11/05/17 19:32 22:23 Temperature 98.4 F Pulse Rate 84 81 Respiratory 20 16 Rate Blood Pressure 183/78 161/88 O2 Sat by Pulse 98 97 Oximetry Review of the labs revealed hemoglobin 7.8 creatinine 5.7 glucose is 288 troponin is unremarkable so his EKG BUN is 4140 radiologist compared today's chest x-ray within the seventh CAT scan of the chest and he noticed there were no adverse ages, her and her O2 sat was quite satisfactory EKG Findings - EKG Comments: EKG Findings:: EKG is a normal sinus ventricular rate is 75 VA interval is 182 QRS duration is 88 QT/QTc is 400/446 review of this EKG does not reveal any ST elevation or ST depression Medical Decision Making - Lab Data Result diagrams: 11/05/17 21:17 11/05/17 21:17 Lab Results 11/05/17 11/05/17 11/05/17 Range/Units 21:17 21:17 21:17 WBC 3.1 L (3.8-10.6) k/uL RBC 2.27 L (3.80-5.40) m/uL Hgb 7.9 L (11.4-16.0) gm/dL Hct 22.8 L (34.0-46.0) % MCV 100.6 H (80.0-100.0) fL MCH 34.7 (25.0-35.0) pg MCHC 34.5 (31.0-37.0) g/dL RDW 17.4 H (11.5-15.5) % Plt Count 157 (150-450) k/uL Neutrophils % 73 % Lymphocytes % 16 % Monocytes % 6 % Eosinophils % 1 % Basophils % 1 % Neutrophils # 2.3 (1.3-7.7) k/uL Lymphocytes # 0.5 L (1.0-4.8) k/uL Monocytes # 0.2 (0-1.0) k/uL Eosinophils # 0.0 (0-0.7) k/uL Basophils # 0.0 (0-0.2) k/uL Poikilocytosis Slight Anisocytosis Slight Macrocytosis Slight PT (9.0-12.0) sec INR (<1.2) APTT (22.0-30.0) sec Sodium 135 L (137-145) mmol/L Potassium 5.3 H (3.5-5.1) mmol/L Chloride 89 L (98-107) mmol/L Carbon Dioxide 33 H (22-30) mmol/L Anion Gap 13 mmol/L BUN 36 H (7-17) mg/dL Creatinine 5.70 H* (0.52-1.04) mg/dL Est GFR (CKD-EPI)AfAm 9 (>60 ml/min/1.73 sqM) Est GFR (CKD-EPI)NonAf 8 (>60 ml/min/1.73 sqM) Glucose 288 H (74-99) mg/dL Calcium 9.2 (8.4-10.2) mg/dL Magnesium 2.1 (1.6-2.3) mg/dL Total Bilirubin 0.7 (0.2-1.3) mg/dL AST 23 (14-36) U/L ALT 31 (9-52) U/L Alkaline Phosphatase 88 (38-126) U/L Total Creatine Kinase 130 (30-135) U/L CK-MB (CK-2) 1.0 (0.0-2.4) ng/mL CK-MB (CK-2) Rel Index 0.8 Troponin I <0.012 (0.000-0.034) ng/mL NT-Pro-B Natriuret Pep pg/mL Total Protein 6.7 (6.3-8.2) g/dL Albumin 4.3 (3.5-5.0) g/dL Urine Color Urine Appearance (Clear) Urine pH (5.0-8.0) Ur Specific [place] (1.001-1.035) Urine Protein (Negative) Urine Glucose (UA) (Negative) Urine Ketones (Negative) Urine Blood (Negative) Urine Nitrite (Negative) Urine Bilirubin (Negative) Urine Urobilinogen (<2.0) mg/dL Ur Leukocyte Esterase (Negative) Urine RBC (0-5) /hpf Urine WBC (0-5) /hpf Ur Squamous Epith Cells (0-4) /hpf Urine Bacteria (None) /hpf Urine Mucus (None) /hpf Blood Type Blood Type Recheck Antibody Screen Crossmatch Spec Expiration Date 11/05/17 11/05/17 11/05/17 Range/Units 21:17 21:17 21:17 WBC (3.8-10.6) k/uL RBC (3.80-5.40) m/uL Hgb (11.4-16.0) gm/dL Hct (34.0-46.0) % MCV (80.0-100.0) fL MCH (25.0-35.0) pg MCHC (31.0-37.0) g/dL RDW (11.5-15.5) % Plt Count (150-450) k/uL Neutrophils % % Lymphocytes % % Monocytes % % Eosinophils % % Basophils % % Neutrophils # (1.3-7.7) k/uL Lymphocytes # (1.0-4.8) k/uL Monocytes # (0-1.0) k/uL Eosinophils # (0-0.7) k/uL Basophils # (0-0.2) k/uL Poikilocytosis Anisocytosis Macrocytosis PT 10.0 (9.0-12.0) sec INR 1.0 (<1.2) APTT 23.0 (22.0-30.0) sec Sodium (137-145) mmol/L Potassium (3.5-5.1) mmol/L Chloride (98-107) mmol/L Carbon Dioxide (22-30) mmol/L Anion Gap mmol/L BUN (7-17) mg/dL Creatinine (0.52-1.04) mg/dL Est GFR (CKD-EPI)AfAm (>60 ml/min/1.73 sqM) Est GFR (CKD-EPI)NonAf (>60 ml/min/1.73 sqM) Glucose (74-99) mg/dL Calcium (8.4-10.2) mg/dL Magnesium (1.6-2.3) mg/dL Total Bilirubin (0.2-1.3) mg/dL AST (14-36) U/L ALT (9-52) U/L Alkaline Phosphatase (38-126) U/L Total Creatine Kinase (30-135) U/L CK-MB (CK-2) (0.0-2.4) ng/mL CK-MB (CK-2) Rel Index Troponin I (0.000-0.034) ng/mL NT-Pro-B Natriuret Pep 4140 pg/mL Total Protein (6.3-8.2) g/dL Albumin (3.5-5.0) g/dL Urine Color Urine Appearance (Clear) Urine pH (5.0-8.0) Ur Specific [place] (1.001-1.035) Urine Protein (Negative) Urine Glucose (UA) (Negative) Urine Ketones (Negative) Urine Blood (Negative) Urine Nitrite (Negative) Urine Bilirubin (Negative) Urine Urobilinogen (<2.0) mg/dL Ur Leukocyte Esterase (Negative) Urine RBC (0-5) /hpf Urine WBC (0-5) /hpf Ur Squamous Epith Cells (0-4) /hpf Urine Bacteria (None) /hpf Urine Mucus (None) /hpf Blood Type A Positive Blood Type Recheck No Antibody Screen NEGATIVE Crossmatch See Detail Spec Expiration Date 11/08/2017 - 231611/05/17 Range/Units 23:10 WBC (3.8-10.6) k/uL RBC (3.80-5.40) m/uL Hgb (11.4-16.0) gm/dL Hct (34.0-46.0) % MCV (80.0-100.0) fL MCH (25.0-35.0) pg MCHC (31.0-37.0) g/dL RDW (11.5-15.5) % Plt Count (150-450) k/uL Neutrophils % % Lymphocytes % % Monocytes % % Eosinophils % % Basophils % % Neutrophils # (1.3-7.7) k/uL Lymphocytes # (1.0-4.8) k/uL Monocytes # (0-1.0) k/uL Eosinophils # (0-0.7) k/uL Basophils # (0-0.2) k/uL Poikilocytosis Anisocytosis Macrocytosis PT (9.0-12.0) sec INR (<1.2) APTT (22.0-30.0) sec Sodium (137-145) mmol/L Potassium (3.5-5.1) mmol/L Chloride (98-107) mmol/L Carbon Dioxide (22-30) mmol/L Anion Gap mmol/L BUN (7-17) mg/dL Creatinine (0.52-1.04) mg/dL Est GFR (CKD-EPI)AfAm (>60 ml/min/1.73 sqM) Est GFR (CKD-EPI)NonAf (>60 ml/min/1.73 sqM) Glucose (74-99) mg/dL Calcium (8.4-10.2) mg/dL Magnesium (1.6-2.3) mg/dL Total Bilirubin (0.2-1.3) mg/dL AST (14-36) U/L ALT (9-52) U/L Alkaline Phosphatase (38-126) U/L Total Creatine Kinase (30-135) U/L CK-MB (CK-2) (0.0-2.4) ng/mL CK-MB (CK-2) Rel Index Troponin I (0.000-0.034) ng/mL NT-Pro-B Natriuret Pep pg/mL Total Protein (6.3-8.2) g/dL Albumin (3.5-5.0) g/dL Urine Color Yellow Urine Appearance Cloudy H (Clear) Urine pH 8.5 H (5.0-8.0) Ur Specific [place] 1.007 (1.001-1.035) Urine Protein 4+ H (Negative) Urine Glucose (UA) 2+ H (Negative) Urine Ketones Negative (Negative) Urine Blood Negative (Negative) Urine Nitrite Negative (Negative) Urine Bilirubin Negative (Negative) Urine Urobilinogen <2.0 (<2.0) mg/dL Ur Leukocyte Esterase Trace H (Negative) Urine RBC 1 (0-5) /hpf Urine WBC 11 H (0-5) /hpf Ur Squamous Epith Cells 37 H (0-4) /hpf Urine Bacteria Moderate H (None) /hpf Urine Mucus Rare H (None) /hpf Blood Type Blood Type Recheck Antibody Screen Crossmatch Spec Expiration Date Disposition Clinical Impression: Generalized weakness, Anemia, Renal failure, UTI (urinary tract infection) Disposition: HOME SELF-CARE Condition: Good Instructions: Urinary Tract Infection in Women (ED) Prescriptions: Nitrofurantoin Monohyd/M-Cryst [Macrobid] 100 mg PO Q12HR #14 cap Is patient prescribed a controlled substance at d/c from ED?: No Referrals: David Bragg MD [Primary Care Provider] - 1-2 days
[2017-11-05 23:51] LABS: Appearance,Urine Cloudy (Clear); Bacteria,Urine Moderate /hpf; Bilirubin,Urine Negative (Negative); Blood,Urine Negative (Negative); Color,Urine Yellow; Glucose,Urine (UA) 2+ (Negative); Ketones,Urine Negative (Negative); Leukocyte Esterase,Urine Trace (Negative); Mucus,Urine Rare /hpf; Nitrite,Urine Negative (Negative); PH, Urine 8.5 (5.0-8.0); Protein,Urine 4+ (Negative); RBC,Urine 1 /hpf (0-5); Specific Gravity,Urine 1.007 (1.001-1.035); Squamous Epithelial Cell,Urine 37 /hpf (0-4); Urobilinogen,Urine <2.0 mg/dL (<2.0); WBC,Urine 11 /hpf (0-5)
[2017-11-06] MEDS ORDERED: NITROFURANTOIN MONOHYD/M-CRYST 100 MG CAP PO STA (00:14)
== END 2017-11-06 00:22 | disposition home or self-care (01) ==
LOC: EC 19:29
DX: D64.9 Anemia, unspecified (principal); N39.0 Urinary tract infection, site not specified; E11.22 Type 2 diabetes mellitus with diabetic chronic kidney disease; I13.0 Hypertensive heart and chronic kidney disease with heart failure and stage 1 through stage 4 chronic kidney disease, or unspecified chronic kidney disease; N18.9 Chronic kidney disease, unspecified; I50.9 Heart failure, unspecified; E78.5 Hyperlipidemia, unspecified; Z79.4 Long term (current) use of insulin; Z79.899 Other long term (current) drug therapy; Z88.1 Allergy status to other antibiotic agents; Z91.041 Radiographic dye allergy status; Z99.2 Dependence on renal dialysis
CPT/HCPCS: 36415; 71046; 80053; 81001; 82550; 82553; 83735; 83880; 84484; 85025; 85610; 85730; 86850; 86900; 86901; 87086; 93005; 99284

== ENCOUNTER → 2018-02-02 | Outpatient (CLI) | payer OTHER | END | disposition home or self-care (01) | LOC: LABWHC1 13:51 | PROVIDERS: ATTEND Internal Medicine | DX: Z53.9 Procedure and treatment not carried out, unspecified reason (principal) ==

== ENCOUNTER 2018-02-10 20:23 | Emergency (ER) | payer OTHER ==
[2018-02-10 20:27] VITALS: TEMP 98.4
--- NOTE | 2018-02-10 20:54 | ED ---
General Adult HPI - General Chief complaint: Upper Respiratory Infection Stated complaint: cough Time Seen by Provider: 02/10/18 20:43 Source: patient, RN notes reviewed Mode of arrival: ambulatory Limitations: no limitations - History of Present Illness Initial comments: Patient 52-year-old female presenting to the emergency room today with a chief complaint of cough congestion over the last week and a half. She does admit that she was on a Z-Travis. She states she finished this was still having cough was prescribed a second antibiotic by the family doctor. She states she took this for 3 days today was the last day. She is unsure of the medication. She' s been on some cough medication. States she still had cough congestion at this time. Patient does admit to sputum production. She denies any other complaints or symptoms. Patient denies any recent fever, chills, shortness of breath, chest pain, back pain, numbness or tingling, dysuria or hematuria, constipation or diarrhea, headaches or visual changes, or any other complaints. - Related Data Home Medications Medication Instructions Recorded Confirmed Atorvastatin [Lipitor] 40 mg PO HS 09/14/15 02/03/18 Cyclobenzaprine [Flexeril] 5 mg PO HS 09/14/15 02/03/18 Magnesium Gluconate [Magonate] 500 mg PO BID 09/14/15 02/03/18 Insulin Glargine [Lantus] 80 unit SQ HS 04/18/16 02/03/18 cloNIDine HCL 0.3 mg PO TID 12/16/16 02/03/18 rOPINIRole HCL [Requip] 1 mg PO TID 02/07/17 02/03/18 Gabapentin [Neurontin] 100 mg PO TID 08/21/17 02/03/18 Lactulose [Constulose] 10 gm PO TID PRN 08/21/17 02/03/18 Sevelamer [Renvela] 800 mg PO DAILY PRN 08/21/17 02/03/18 traMADol HCl [Ultram] 50 mg PO Q4H PRN 08/21/17 02/03/18 Lidocaine-Prilocaine Cream [Emla 1 applic TOPICAL TUTHSA PRN 09/21/17 02/03/18 Cream 2.5%/2.5%] INSULIN LISPRO (HumaLOG) [humaLOG] 16 units SQ AC-TID 10/06/17 02/03/18 INSULIN LISPRO (HumaLOG) [humaLOG] See Protocol SQ ACHS PRN 10/06/17 02/03/18 amLODIPine [Norvasc] 10 mg PO DAILY 10/06/17 02/03/18 Furosemide [Lasix] 80 mg PO BID 10/22/17 02/03/18 Metoprolol Tartrate [Lopressor] 50 mg PO BID 10/22/17 02/03/18 Omeprazole 20 mg PO DAILY 10/22/17 02/03/18 Vitamin E (Dl,Tocopheryl Acet) 400 unit PO DAILY 10/22/17 02/03/18 [Vitamin E] Prochlorperazine [Compazine] 5 mg PO BID PRN 10/26/17 02/03/18 Diazepam [Valium] 5 mg PO HS 02/03/18 02/03/18 Previous Rx's Medication Instructions Recorded hydrALAZINE HCL [Apresoline] 100 mg PO TID #180 tab 06/10/16 HYDROcodone/APAP 5-325MG [[place] 1 tab PO Q8HR PRN #45 tab 09/24/17 5-325] Darbepoetin Drew [Aranesp] 40 mcg SQ Q7D syringe 10/29/17 Nitrofurantoin Monohyd/M-Cryst 100 mg PO Q12HR #14 cap 11/06/17 [Macrobid] predniSONE 50 mg PO DAILY #3 tab 02/10/18 Allergies Allergy/AdvReac Type Severity Reaction Status Date / Time ciprofloxacin [From Cipro] AdvReac AFFECTED Verified 02/10/18 21:36 EYESIGHT ciprofloxacin HCl AdvReac AFFECTED Verified 02/10/18 21:36 [From Cipro] EYESIGHT Iodinated Contrast- Oral and AdvReac RENAL Verified 02/10/18 21:36 IV Dye FAILURE Review of Systems ROS Statement: Those systems with pertinent positive or pertinent negative responses have been documented in the HPI. ROS Other: All systems not noted in ROS Statement are negative. Past Medical History Past Medical History: Blood Disorder, Heart Failure, Diabetes Mellitus, Dialysis , Hyperlipidemia, Hypertension, Liver Disease, Pneumonia, Renal Disease Additional Past Medical History / Comment(s): Current R eye infection, bilateral cataracts, bilateral retinal hemorrhages, hypertriglyceridemia- induced acute pancreatitis, THEN necrotizing pancreatitis. hemodialysis for acute kidney injury 2 months in 2009 after pancreatic OR, 11/2015 diagnosed w/ chronic kidney disease-hemodialysis //, IDDM type II, pt states she has dry heaves day after dialysis, chronic anemia, body cramping when blood sugars are high, occasional low back pain, carter's palsy x2, past L leg fx. History of Any Multi-Drug Resistant Organisms: None Reported Past Surgical History: Orthopedic Surgery, Uterine Ablation Additional Past Surgical History / Comment(s): 08/26/17 colonoscopy with polypectomy/bx, pancreatic resection at [facility] 2009, bone marrow biopsies X2-last one 05/19/16,. dialysis chest port x 2 with removals, Left arm shunt placement for dialysis - December 2015 and a revision done with shunt/ Past Anesthesia/Blood Transfusion Reactions: No Reported Reaction Additional Past Anesthesia/Blood Transfusion Reaction / Comment(s): Pt has received blood transfusions without reaction. Past Psychological History: No Psychological Hx Reported Smoking Status: Former smoker Past Alcohol Use History: None Reported Past Drug Use History: None Reported - Past Family History Brother(s) Family Medical History: No Reported History Mother Family Medical History: Cancer, Diabetes Mellitus, Hypertension Additional Family Medical History / Comment(s): Mother of throat cancer at the age of 63 yrs. She was a smoker. Father Family Medical History: Coronary Artery Disease (CAD), Hyperlipidemia, Hypertension Additional Family Medical History / Comment(s): Father is 70 yrs old. General Exam - General Exam Comments Initial Comments: General: The patient is awake and alert, in no distress, and does not appear acutely ill. Eye: Extra-ocular movements are intact. No nystagmus. There is normal conjunctiva bilaterally. No signs of icterus. Ears, nose, mouth and throat: There are moist mucous membranes and no oral lesions. Neck: The neck is supple, there is no tenderness or JVD. Cardiovascular: There is a regular rate and rhythm. No murmur, rub or gallop is appreciated. Respiratory: Lungs are clear to auscultation, respirations are non-labored, breath sounds are equal. No wheezes, stridor, rales, or rhonchi. Musculoskeletal: Normal ROM, no tenderness. Sensation intact. Strength 5/5. Pulses equal bilaterally 2+. Neurological: A&O x 3. CN II-XII intact, There are no obvious motor or sensory deficits. Coordination appears grossly intact. Speech is normal. Skin: Skin is warm and dry and no rashes or lesions are noted. Psychiatric: Cooperative, appropriate mood & affect, normal judgment. Limitations: no limitations Course Vital Signs 02/10/18 02/10/18 02/10/18 20:24 20:58 21:38 Temperature 98.4 F Pulse Rate 90 84 Respiratory 18 19 18 Rate Blood Pressure 199/83 204/92 O2 Sat by Pulse 97 95 Oximetry Medical Decision Making - Medical Decision Making Patient's x-ray reviewed and is unremarkable. No cute abnormalities. Patient' s resting comfortable. Patient's blood pressures been elevated here in emergency room if she has not taken her nightly meds. She states takes clonidine and hydralazine. Patient states she does not want to stay here in the hospital to have medications for this. States feels comfortable going home to take her medications and she will be following up tomorrow have dialysis to check her blood pressure there. She states she also has a blood pressure cuff at home that she can check bridge is advised that she should follow family doctor also her insurance coder over the next couple days with cough congestion also her blood pressure. Advised to return here to emergency room if any symptoms increase worsen. Disposition Clinical Impression: Acute bronchitis, Hypertension Disposition: HOME SELF-CARE Condition: Good Instructions: Upper Respiratory Infection (ED) Additional Instructions: Please use medication as discussed. Please follow-up with family doctor in the next 2 days of symptoms have not improved. Please return to emergency room if the symptoms increase or worsen or for any other concerns. Prescriptions: predniSONE 50 mg PO DAILY #3 tab Is patient prescribed a controlled substance at d/c from ED?: No Referrals: David Bragg MD [Primary Care Provider] - 1-2 days Time of Disposition: 21:44
--- NOTE | 2018-02-10 21:14 | XR ---
EXAMINATION TYPE: XR chest 2V DATE OF EXAM: 02/10/2018 COMPARISON: 11/05/2017 HISTORY: Cough TECHNIQUE: Frontal and lateral views of the chest are obtained. FINDINGS: Heart is enlarged. There is no heart failure. Lungs are clear of infiltrate. Bony thorax i s intact. There is no pleural effusion. IMPRESSION: Cardiomegaly. No change compared to old exam. No acute lung disease.
[2018-02-10 21:39] VITALS: BP 204/92; PULSE 84; RESP 18
[2018-02-10] MEDS ORDERED: predniSONE 50 MG TAB PO STA (21:43)
== END 2018-02-10 21:53 | disposition home or self-care (01) ==
LOC: EC 20:23
DX: J20.9 Acute bronchitis, unspecified (principal); I11.0 Hypertensive heart disease with heart failure; I50.9 Heart failure, unspecified; E11.9 Type 2 diabetes mellitus without complications; E78.5 Hyperlipidemia, unspecified; Z87.891 Personal history of nicotine dependence; Z98.890 Other specified postprocedural states; Z99.2 Dependence on renal dialysis; Z79.4 Long term (current) use of insulin; Z79.899 Other long term (current) drug therapy; Z88.1 Allergy status to other antibiotic agents; Z91.041 Radiographic dye allergy status
CPT/HCPCS: 99283; 71046; J7512

== ENCOUNTER 2018-03-13 11:31 | Emergency (ER) | payer OTHER ==
[2018-03-13 13:13] LABS: Albumin 4.2 g/dL (3.5-5.0); Anisocytosis Slight; Basophils % (A) 1 %; Calcium 9.3 mg/dL (8.4-10.2); Eosinophils % (A) 2 %; HCT 20.1 % (34.0-46.0); HGB 7.1 gm/dL (11.4-16.0); Lymphocytes # (A) 0.3 k/uL (1.0-4.8); Lymphocytes % (A) 13 %; MCH 34.7 pg (25.0-35.0); MCHC 35.2 g/dL (31.0-37.0); MCV 98.8 fL (80.0-100.0); Macrocytosis Slight; Mean Platelet Volume 7.3; Monocytes # (A) 0.1 k/uL (0-1.0); Monocytes % (A) 7 %; Neutrophils # (A) 1.6 k/uL (1.3-7.7); Neutrophils % (A) 77 %; Platelet Count 127 k/uL (150-450); Poikilocytosis Slight; RBC 2.04 m/uL (3.80-5.40); RDW 17.1 % (11.5-15.5); Total Bilirubin 0.8 mg/dL (0.2-1.3); Total Protein 7.1 g/dL (6.3-8.2)
[2018-03-13 13:15] LABS: Partial Thromboplastin Time 22.4 sec (22.0-30.0); Prothrombin Time 10.3 sec (9.0-12.0)
--- NOTE | 2018-03-13 14:16 | ED ---
General Adult HPI - General Chief complaint: Recheck/Abnormal Lab/Rx Stated complaint: low hemoglobin Time Seen by Provider: 03/13/18 11:35 Source: patient, RN notes reviewed Mode of arrival: ambulatory Limitations: no limitations - History of Present Illness Initial comments: This is a 52-year-old female who presents emergency department after having gone to dialysis. Patient states they sent her in to get a unit of blood because her hemoglobin 7.2. Patient states she has been short of breath but she 's always a little bit short of breath. Patient states she didn't feel as though she needed unit of blood because it'll come she came. Patient denies any chest pain or palpitations. Patient denies any lightheadedness or dizziness. Patient states she's had no lack of bloody stool she denies any recent vomiting. - Related Data Home Medications Medication Instructions Recorded Confirmed Atorvastatin [Lipitor] 40 mg PO HS 09/14/15 03/13/18 Cyclobenzaprine [Flexeril] 5 mg PO HS 09/14/15 03/13/18 Insulin Glargine [Lantus] 80 unit SQ HS 04/18/16 03/13/18 cloNIDine HCL 0.3 mg PO TID 12/16/16 03/13/18 rOPINIRole HCL [Requip] 1 mg PO TID 02/07/17 03/13/18 Sevelamer [Renvela] 800 mg PO DAILY PRN 08/21/17 02/10/18 Lidocaine-Prilocaine Cream [Emla 1 applic TOPICAL TUTHSA PRN 09/21/17 03/13/18 Cream 2.5%/2.5%] INSULIN LISPRO (HumaLOG) [humaLOG] 16 units SQ AC-TID 10/06/17 03/13/18 INSULIN LISPRO (HumaLOG) [humaLOG] See Protocol SQ ACHS PRN 10/06/17 03/13/18 amLODIPine [Norvasc] 10 mg PO DAILY 10/06/17 03/13/18 Furosemide [Lasix] 80 mg PO BID 10/22/17 03/13/18 Metoprolol Tartrate [Lopressor] 50 mg PO BID 10/22/17 03/13/18 Omeprazole 20 mg PO DAILY 10/22/17 03/13/18 Prochlorperazine [Compazine] 5 mg PO BID PRN 10/26/17 03/13/18 Diazepam [Valium] 5 mg PO BID 02/10/18 03/13/18 Erythromycin Ophth Oint [Romycin 1 applic BOTH EYES DAILY 02/10/18 03/13/18 Ophth Oint] Magnesium Gluconate [Magonate] 500 mg PO BID 02/10/18 03/13/18 Sodium Polystyrene Sulfonate 15 gm PO SUMOWEFR 02/10/18 02/10/18 [Kayexalate] Triphrocaps 1 cap PO DAILY 02/10/18 03/13/18 Gabapentin [Neurontin] 300 mg PO HS 03/13/18 03/13/18 Lactulose 10 gm PO TID PRN 03/13/18 03/13/18 Sevelamer [Renvela] 2,400 mg PO AC-TID 03/13/18 03/13/18 Previous Rx's Medication Instructions Recorded hydrALAZINE HCL [Apresoline] 100 mg PO TID #180 tab 06/10/16 HYDROcodone/APAP 5-325MG [[place] 1 tab PO Q8HR PRN #45 tab 09/24/17 5-325] Allergies Allergy/AdvReac Type Severity Reaction Status Date / Time ciprofloxacin [From Cipro] AdvReac AFFECTED Verified 03/13/18 14:37 EYESIGHT ciprofloxacin HCl AdvReac AFFECTED Verified 03/13/18 14:37 [From Cipro] EYESIGHT Iodinated Contrast- Oral and AdvReac RENAL Verified 03/13/18 14:37 IV Dye FAILURE Review of Systems ROS Statement: Those systems with pertinent positive or pertinent negative responses have been documented in the HPI. ROS Other: All systems not noted in ROS Statement are negative. Past Medical History Past Medical History: Blood Disorder, Heart Failure, Diabetes Mellitus, Dialysis , Hyperlipidemia, Hypertension, Liver Disease, Pneumonia, Renal Disease Additional Past Medical History / Comment(s): Current R eye infection, bilateral cataracts, bilateral retinal hemorrhages, hypertriglyceridemia- induced acute pancreatitis, THEN necrotizing pancreatitis. hemodialysis for acute kidney injury 2 months in 2009 after pancreatic OR, 11/2015 diagnosed w/ chronic kidney disease-hemodialysis //, IDDM type II, pt states she has dry heaves day after dialysis, chronic anemia, body cramping when blood sugars are high, occasional low back pain, carter's palsy x2, past L leg fx. History of Any Multi-Drug Resistant Organisms: None Reported Past Surgical History: Orthopedic Surgery, Uterine Ablation Additional Past Surgical History / Comment(s): 08/26/17 colonoscopy with polypectomy/bx, pancreatic resection at [facility] 2009, bone marrow biopsies X2-last one 05/19/16,. dialysis chest port x 2 with removals, Left arm shunt placement for dialysis - December 2015 and a revision done with shunt/ Past Anesthesia/Blood Transfusion Reactions: No Reported Reaction Additional Past Anesthesia/Blood Transfusion Reaction / Comment(s): Pt has received blood transfusions without reaction. Past Psychological History: No Psychological Hx Reported Smoking Status: Former smoker Past Alcohol Use History: None Reported Past Drug Use History: None Reported - Past Family History Brother(s) Family Medical History: No Reported History Mother Family Medical History: Cancer, Diabetes Mellitus, Hypertension Additional Family Medical History / Comment(s): Mother of throat cancer at the age of 63 yrs. She was a smoker. Father Family Medical History: Coronary Artery Disease (CAD), Hyperlipidemia, Hypertension Additional Family Medical History / Comment(s): Father is 70 yrs old. General Exam - General Exam Comments Initial Comments: GENERAL: Patient is well-developed and well-nourished. Patient is nontoxic and well- hydrated and is in no acute distress. ENT: Neck is soft and supple. No significant lymphadenopathy is noted. Oropharynx is clear. Moist mucous membranes. Neck has full range of motion without eliciting any pain. EYES: The sclera were anicteric and conjunctiva were pink and moist. Extraocular movements were intact and pupils were equal round and reactive to light. Eyelids were unremarkable. PULMONARY: Unlabored respirations. Good breath sounds bilaterally. No audible rales rhonchi or wheezing was noted. CARDIOVASCULAR: There is a regular rate and rhythm without any murmurs gallops or rubs. ABDOMEN: Soft and nontender with normal bowel sounds. No palpable organomegaly was noted. There is no palpable pulsatile mass. SKIN: Skin is clear with no lesions or rashes and otherwise unremarkable. NEUROLOGIC: Patient is alert and oriented x3. Cranial nerves II through XII are grossly intact. Motor and sensory are also intact. Normal speech, volume and content. Symmetrical smile. MUSCULOSKELETAL: Normal extremities with adequate strength and full range of motion. No lower extremity swelling or edema. No calf tenderness. LYMPHATICS: No significant lymphadenopathy is noted PSYCHIATRIC: Normal psychiatric evaluation. Limitations: no limitations Course Vital Signs 03/13/18 03/13/18 03/13/18 11:38 13:41 14:51 Temperature 98.2 F 97.9 F Pulse Rate 81 84 83 Respiratory 18 18 16 Rate Blood Pressure 181/83 179/82 178/74 O2 Sat by Pulse 98 95 96 Oximetry Medical Decision Making - Medical Decision Making Once labs came back I spoke with Dr. Orozco should not recommend transfusion at this point time. [.Patient patient states she was feeling fine she doesn't believe she he is anymore short of breath than normal - Lab Data Result diagrams: 03/13/18 12:28 03/13/18 12:28 Lab Results 03/13/18 03/13/18 03/13/18 Range/Units 12:28 12:28 12:28 WBC 2.0 L (3.8-10.6) k/uL RBC 2.04 L (3.80-5.40) m/uL Hgb 7.1 L (11.4-16.0) gm/dL Hct 20.1 L (34.0-46.0) % MCV 98.8 (80.0-100.0) fL MCH 34.7 (25.0-35.0) pg MCHC 35.2 (31.0-37.0) g/dL RDW 17.1 H (11.5-15.5) % Plt Count 127 L (150-450) k/uL Neutrophils % 77 % Lymphocytes % 13 % Monocytes % 7 % Eosinophils % 2 % Basophils % 1 % Neutrophils # 1.6 (1.3-7.7) k/uL Lymphocytes # 0.3 L (1.0-4.8) k/uL Monocytes # 0.1 (0-1.0) k/uL Eosinophils # 0.0 (0-0.7) k/uL Basophils # 0.0 (0-0.2) k/uL Poikilocytosis Slight Anisocytosis Slight Macrocytosis Slight PT (9.0-12.0) sec INR (<1.2) APTT (22.0-30.0) sec Sodium 139 (137-145) mmol/L Potassium 4.0 (3.5-5.1) mmol/L Chloride 93 L (98-107) mmol/L Carbon Dioxide 35 H (22-30) mmol/L Anion Gap 11 mmol/L BUN 29 H (7-17) mg/dL Creatinine 4.26 H (0.52-1.04) mg/dL Est GFR (CKD-EPI)AfAm 13 (>60 ml/min/1.73 sqM) Est GFR (CKD-EPI)NonAf 11 (>60 ml/min/1.73 sqM) Glucose 185 H (74-99) mg/dL Calcium 9.3 (8.4-10.2) mg/dL Total Bilirubin 0.8 (0.2-1.3) mg/dL AST 28 (14-36) U/L ALT 32 (9-52) U/L Alkaline Phosphatase 102 (38-126) U/L Total Protein 7.1 (6.3-8.2) g/dL Albumin 4.2 (3.5-5.0) g/dL Blood Type A Positive Blood Type Recheck No Antibody Screen NEGATIVE Spec Expiration Date 03/16/2018232703/13/18 Range/Units 12:28 WBC (3.8-10.6) k/uL RBC (3.80-5.40) m/uL Hgb (11.4-16.0) gm/dL Hct (34.0-46.0) % MCV (80.0-100.0) fL MCH (25.0-35.0) pg MCHC (31.0-37.0) g/dL RDW (11.5-15.5) % Plt Count (150-450) k/uL Neutrophils % % Lymphocytes % % Monocytes % % Eosinophils % % Basophils % % Neutrophils # (1.3-7.7) k/uL Lymphocytes # (1.0-4.8) k/uL Monocytes # (0-1.0) k/uL Eosinophils # (0-0.7) k/uL Basophils # (0-0.2) k/uL Poikilocytosis Anisocytosis Macrocytosis PT 10.3 (9.0-12.0) sec INR 1.0 (<1.2) APTT 22.4 (22.0-30.0) sec Sodium (137-145) mmol/L Potassium (3.5-5.1) mmol/L Chloride (98-107) mmol/L Carbon Dioxide (22-30) mmol/L Anion Gap mmol/L BUN (7-17) mg/dL Creatinine (0.52-1.04) mg/dL Est GFR (CKD-EPI)AfAm (>60 ml/min/1.73 sqM) Est GFR (CKD-EPI)NonAf (>60 ml/min/1.73 sqM) Glucose (74-99) mg/dL Calcium (8.4-10.2) mg/dL Total Bilirubin (0.2-1.3) mg/dL AST (14-36) U/L ALT (9-52) U/L Alkaline Phosphatase (38-126) U/L Total Protein (6.3-8.2) g/dL Albumin (3.5-5.0) g/dL Blood Type Blood Type Recheck Antibody Screen Spec Expiration Date Disposition Clinical Impression: Chronic anemia Disposition: HOME SELF-CARE Condition: Good Instructions: Anemia (ED) Is patient prescribed a controlled substance at d/c from ED?: No Referrals: David Bragg MD [Primary Care Provider] - 1-2 days Time of Disposition: 14:16
[2018-03-13 14:52] VITALS: BP 178/74; PULSE 83; RESP 16; TEMP 97.9
== END 2018-03-13 14:52 | disposition home or self-care (01) ==
LOC: EC 11:31
DX: D64.9 Anemia, unspecified (principal); E11.22 Type 2 diabetes mellitus with diabetic chronic kidney disease; I13.0 Hypertensive heart and chronic kidney disease with heart failure and stage 1 through stage 4 chronic kidney disease, or unspecified chronic kidney disease; N18.9 Chronic kidney disease, unspecified; I50.9 Heart failure, unspecified; E78.1 Pure hyperglyceridemia; E78.5 Hyperlipidemia, unspecified; Z79.4 Long term (current) use of insulin; Z79.899 Other long term (current) drug therapy; Z88.1 Allergy status to other antibiotic agents; Z91.041 Radiographic dye allergy status; Z87.891 Personal history of nicotine dependence; Z99.2 Dependence on renal dialysis
CPT/HCPCS: 36415; 80053; 85025; 85610; 85730; 86850; 86900; 86901; 99284

== ENCOUNTER → 2018-03-22 | Outpatient (CLI) | payer OTHER | LOC: LABWHC1 09:51 | PROVIDERS: ATTEND Nurse Practitioner Family | DX: D64.9 Anemia, unspecified (principal) | CPT/HCPCS: 86850; 86900; 86901; 86920 ==

== ENCOUNTER 2018-05-17 18:23 | Inpatient (IN) | payer OTHER ==
--- NOTE | 2018-05-17 19:06 | XR ---
EXAMINATION TYPE: XR chest 2V DATE OF EXAM: 05/17/2018 COMPARISON: Chest x-ray February 10, 2018. CT chest October 27, 2017. HISTORY: Shortness of breath TECHNIQUE: Frontal and lateral views of the chest are obtained. FINDINGS: There are faint opacities bilaterally. No pleural effusion or pneumothorax is seen. The ca rdiac silhouette size remains enlarged. The osseous structures are intact. IMPRESSION: Persistent cardiac enlargement correlating to moderate to large size pericardial effusio n causing mild bilateral alveolar edema.
[2018-05-17 19:36] LABS: Anisocytosis Slight; Basophils % (A) 1 %; Eosinophils % (A) 1 %; HCT 22.7 % (34.0-46.0); HGB 7.5 gm/dL (11.4-16.0); Hypochromasia Slight; Lymphocytes # (A) 0.2 k/uL (1.0-4.8); Lymphocytes % (A) 9 %; MCH 32.5 pg (25.0-35.0); MCHC 33.3 g/dL (31.0-37.0); MCV 97.6 fL (80.0-100.0); Macrocytosis Slight; Mean Platelet Volume 7.9; Monocytes # (A) 0.1 k/uL (0-1.0); Monocytes % (A) 4 %; Neutrophils % (A) 84 %; Platelet Count 100 k/uL (150-450); Poikilocytosis Slight; RBC 2.32 m/uL (3.80-5.40); RDW 17.4 % (11.5-15.5); WBC 2.4 k/uL (3.8-10.6)
[2018-05-17 19:39] LABS: Albumin 4.3 g/dL (3.5-5.0); Calcium 8.9 mg/dL (8.4-10.2); Potassium 5.3 mmol/L (3.5-5.1); Total Bilirubin 1.1 mg/dL (0.2-1.3); Total Protein 6.7 g/dL (6.3-8.2)
[2018-05-17 19:40] LABS: Partial Thromboplastin Time 24.3 sec (22.0-30.0); Prothrombin Time 10.4 sec (9.0-12.0)
[2018-05-17 19:54] LABS: Creatine Kinase MB 3.2 ng/mL (0.0-2.4); Troponin I 0.023 ng/mL (0.000-0.034)
[2018-05-17] MEDS ORDERED: NITROGLYCERIN-D5W PMX 50 MG in DEXTROSE/WATER 1 250ML.BAG IV ONE (20:55)
[2018-05-17] MEDS ORDERED: NALOXONE 0.4 MG/ML 1 ML VIAL IV PRN (20:57)
--- NOTE | 2018-05-17 21:04 | ED ---
General Adult HPI - General Chief complaint: Shortness of Breath Stated complaint: Diff Breathing Time Seen by Provider: 05/17/18 20:20 Source: patient, RN notes reviewed, old records reviewed Mode of arrival: ambulatory Limitations: no limitations - History of Present Illness Initial comments: 52-year-old female history of end-stage renal disease on hemodialysis Thursday presenting with worsening dyspnea. Patient states she received full treatment of hemodialysis on Thursday which was 2 days prior to evaluation. Symptoms have been progressive over one week. Denies central chest pain. Patient states that she has had cough which is nonproductive. She denies lower extremity pain or swelling. Denies abdominal pain nausea vomiting. Patient does continue to have urine output which is unchanged from baseline. - Related Data Home Medications Medication Instructions Recorded Confirmed Atorvastatin [Lipitor] 40 mg PO HS 09/14/15 03/13/18 Cyclobenzaprine [Flexeril] 5 mg PO HS 09/14/15 03/13/18 Insulin Glargine [Lantus] 80 unit SQ HS 04/18/16 03/13/18 cloNIDine HCL 0.3 mg PO TID 12/16/16 03/13/18 rOPINIRole HCL [Requip] 1 mg PO TID 02/07/17 03/13/18 Sevelamer [Renvela] 800 mg PO DAILY PRN 08/21/17 02/10/18 Lidocaine-Prilocaine Cream [[place]ml[place] 1 applic TOPICAL TUTHSA PRN 09/21/17 03/13/18 Cream 2.5%/2.5%] INSULIN LISPRO (HumaLOG) [humaLOG] 16 units SQ AC-TID 10/06/17 03/13/18 INSULIN LISPRO (HumaLOG) [humaLOG] See Protocol SQ ACHS PRN 10/06/17 03/13/18 amLODIPine [Norvasc] 10 mg PO DAILY 10/06/17 03/13/18 Furosemide [Lasix] 80 mg PO BID 10/22/17 03/13/18 Metoprolol Tartrate [Lopressor] 50 mg PO BID 10/22/17 03/13/18 Omeprazole 20 mg PO DAILY 10/22/17 03/13/18 Prochlorperazine [Compazine] 5 mg PO BID PRN 10/26/17 03/13/18 Diazepam [Valium] 5 mg PO BID 02/10/18 03/13/18 Erythromycin Ophth Oint [Romycin 1 applic BOTH EYES DAILY 02/10/18 03/13/18 Ophth Oint] Magnesium Gluconate [Magonate] 500 mg PO BID 02/10/18 03/13/18 Sodium Polystyrene Sulfonate 15 gm PO SUMOWEFR 02/10/18 02/10/18 [Kayexalate] Triphrocaps 1 cap PO DAILY 02/10/18 03/13/18 Gabapentin [Neurontin] 300 mg PO HS 03/13/18 03/13/18 Lactulose 10 gm PO TID PRN 03/13/18 03/13/18 Sevelamer [Renvela] 2,400 mg PO AC-TID 03/13/18 03/13/18 Previous Rx's Medication Instructions Recorded hydrALAZINE HCL [Apresoline] 100 mg PO TID #180 tab 06/10/16 HYDROcodone/APAP 5-325MG [[place] 1 tab PO Q8HR PRN #45 tab 09/24/17 5-325] Allergies Allergy/AdvReac Type Severity Reaction Status Date / Time ciprofloxacin [From Cipro] AdvReac AFFECTED Verified 05/17/18 20:55 EYESIGHT ciprofloxacin HCl AdvReac AFFECTED Verified 05/17/18 20:55 [From Cipro] EYESIGHT Iodinated Contrast- Oral and AdvReac RENAL Verified 05/17/18 20:55 IV Dye FAILURE Review of Systems ROS Statement: Those systems with pertinent positive or pertinent negative responses have been documented in the HPI. ROS Other: All systems not noted in ROS Statement are negative. Past Medical History Past Medical History: Blood Disorder, Heart Failure, Diabetes Mellitus, Dialysis , Hyperlipidemia, Hypertension, Liver Disease, Pneumonia, Renal Disease Additional Past Medical History / Comment(s): Current R eye infection, bilateral cataracts, bilateral retinal hemorrhages, hypertriglyceridemia- induced acute pancreatitis, THEN necrotizing pancreatitis. hemodialysis for acute kidney injury 2 months in 2009 after pancreatic OR, 11/2015 diagnosed w/ chronic kidney disease-hemodialysis //, IDDM type II, pt states she has dry heaves day after dialysis, chronic anemia, body cramping when blood sugars are high, occasional low back pain, carter's palsy x2, past L leg fx. History of Any Multi-Drug Resistant Organisms: None Reported Past Surgical History: Orthopedic Surgery, Uterine Ablation Additional Past Surgical History / Comment(s): 08/26/17 colonoscopy with polypectomy/bx, pancreatic resection at [facility] 2009, bone marrow biopsies X2-last one 05/19/16,. dialysis chest port x 2 with removals, Left arm shunt placement for dialysis - December 2015 and a revision done with shunt/ Past Anesthesia/Blood Transfusion Reactions: No Reported Reaction Additional Past Anesthesia/Blood Transfusion Reaction / Comment(s): Pt has received blood transfusions without reaction. Past Psychological History: No Psychological Hx Reported Smoking Status: Never smoker - Past Family History Brother(s) Family Medical History: No Reported History Mother Family Medical History: Cancer, Diabetes Mellitus, Hypertension Additional Family Medical History / Comment(s): Mother of throat cancer at the age of 63 yrs. She was a smoker. Father Family Medical History: Coronary Artery Disease (CAD), Hyperlipidemia, Hypertension Additional Family Medical History / Comment(s): Father is 70 yrs old. General Exam Limitations: no limitations General appearance: alert, in no apparent distress Head exam: Present: atraumatic, normocephalic Eye exam: Present: normal appearance, PERRL ENT exam: Present: normal exam Neck exam: Present: normal inspection. Absent: tenderness, meningismus Respiratory exam: Present: normal lung sounds bilaterally, rales, decreased breath sounds Cardiovascular Exam: Present: regular rate, normal rhythm, other (Distant heart sounds) GI/Abdominal exam: Present: soft, distended Extremities exam: Present: normal inspection, normal capillary refill. Absent: pedal edema, calf tenderness Neurological exam: Present: alert, oriented X3, CN II-XII intact. Absent: motor sensory deficit Psychiatric exam: Present: normal affect, normal mood Skin exam: Present: warm, dry, intact. Absent: cyanosis, diaphoretic Course Vital Signs 05/17/18 05/17/18 18:42 20:05 Temperature 98.3 F Pulse Rate 94 93 Respiratory 18 18 Rate Blood Pressure 210/92 219/88 O2 Sat by Pulse 94 L 91 L Oximetry EKG Findings - EKG Comments: EKG Findings:: EKG: Normal sinus rhythm, incomplete right bundle-branch block, rate of 88, CA interval 154, QRS duration 92, QTC 462, no ST segment elevation Medical Decision Making - Medical Decision Making 52-year-old female with end-stage renal disease presenting with worsening dyspnea. Chest x-ray obtained, shows right about of headache to with concern for moderate to severe pericardial effusion and pulmonary vascular congestion. Patient states she did receive full treatment hemodialysis on Thursday which was 2 days prior. She has elevated blood pressure 210/110 and mild hypoxia 91% on room air. She has a white blood cell count 2.4 which is baseline, hemoglobin 7.5 from recent of 7.1. Potassium 5.3. There is concern the patient may have worsening uremic pericardial effusion and this may be contributing to her symptoms. This may also just be secondary to fluid overload secondary to end-stage renal disease. She will be admitted for echo, and nephrology placed on consult, case is discussed with the admitting physician. - Lab Data Result diagrams: 05/17/18 19:14 05/17/18 19:14 Lab Results 05/17/18 05/17/18 05/17/18 Range/Units 19:14 19:14 19:14 WBC 2.4 L (3.8-10.6) k/uL RBC 2.32 L (3.80-5.40) m/uL Hgb 7.5 L (11.4-16.0) gm/dL Hct 22.7 L (34.0-46.0) % MCV 97.6 (80.0-100.0) fL MCH 32.5 (25.0-35.0) pg MCHC 33.3 (31.0-37.0) g/dL RDW 17.4 H (11.5-15.5) % Plt Count 100 L (150-450) k/uL Neutrophils % 84 % Lymphocytes % 9 % Monocytes % 4 % Eosinophils % 1 % Basophils % 1 % Neutrophils # 2.0 (1.3-7.7) k/uL Lymphocytes # 0.2 L (1.0-4.8) k/uL Monocytes # 0.1 (0-1.0) k/uL Eosinophils # 0.0 (0-0.7) k/uL Basophils # 0.0 (0-0.2) k/uL Hypochromasia Slight Poikilocytosis Slight Anisocytosis Slight Macrocytosis Slight PT (9.0-12.0) sec INR (<1.2) APTT (22.0-30.0) sec Sodium 137 (137-145) mmol/L Potassium 5.3 H (3.5-5.1) mmol/L Chloride 95 L (98-107) mmol/L Carbon Dioxide 26 (22-30) mmol/L Anion Gap 16 mmol/L BUN 63 H (7-17) mg/dL Creatinine 8.56 H* (0.52-1.04) mg/dL Est GFR (CKD-EPI)AfAm 6 (>60 ml/min/1.73 sqM) Est GFR (CKD-EPI)NonAf 5 (>60 ml/min/1.73 sqM) Glucose 240 H (74-99) mg/dL Calcium 8.9 (8.4-10.2) mg/dL Total Bilirubin 1.1 (0.2-1.3) mg/dL AST 40 H (14-36) U/L ALT 76 H (9-52) U/L Alkaline Phosphatase 121 (38-126) U/L Total Creatine Kinase 185 H (30-135) U/L CK-MB (CK-2) 3.2 H (0.0-2.4) ng/mL CK-MB (CK-2) Rel Index 1.7 Troponin I 0.023 (0.000-0.034) ng/mL Total Protein 6.7 (6.3-8.2) g/dL Albumin 4.3 (3.5-5.0) g/dL 05/17/18 Range/Units 19:14 WBC (3.8-10.6) k/uL RBC (3.80-5.40) m/uL Hgb (11.4-16.0) gm/dL Hct (34.0-46.0) % MCV (80.0-100.0) fL MCH (25.0-35.0) pg MCHC (31.0-37.0) g/dL RDW (11.5-15.5) % Plt Count (150-450) k/uL Neutrophils % % Lymphocytes % % Monocytes % % Eosinophils % % Basophils % % Neutrophils # (1.3-7.7) k/uL Lymphocytes # (1.0-4.8) k/uL Monocytes # (0-1.0) k/uL Eosinophils # (0-0.7) k/uL Basophils # (0-0.2) k/uL Hypochromasia Poikilocytosis Anisocytosis Macrocytosis PT 10.4 (9.0-12.0) sec INR 1.0 (<1.2) APTT 24.3 (22.0-30.0) sec Sodium (137-145) mmol/L Potassium (3.5-5.1) mmol/L Chloride (98-107) mmol/L Carbon Dioxide (22-30) mmol/L Anion Gap mmol/L BUN (7-17) mg/dL Creatinine (0.52-1.04) mg/dL Est GFR (CKD-EPI)AfAm (>60 ml/min/1.73 sqM) Est GFR (CKD-EPI)NonAf (>60 ml/min/1.73 sqM) Glucose (74-99) mg/dL Calcium (8.4-10.2) mg/dL Total Bilirubin (0.2-1.3) mg/dL AST (14-36) U/L ALT (9-52) U/L Alkaline Phosphatase (38-126) U/L Total Creatine Kinase (30-135) U/L CK-MB (CK-2) (0.0-2.4) ng/mL CK-MB (CK-2) Rel Index Troponin I (0.000-0.034) ng/mL Total Protein (6.3-8.2) g/dL Albumin (3.5-5.0) g/dL Disposition Clinical Impression: ESRD (end stage renal disease) on dialysis, Pulmonary edema Disposition: ADMITTED IP TO THIS HOSP Condition: Serious Is patient prescribed a controlled substance at d/c from ED?: No Referrals: David Bragg MD [Primary Care Provider] - 1-2 days Time of Disposition: 21:03
[2018-05-17] MEDS ORDERED: SEVELAMER 800 MG TAB PO PRN (21:35)
[2018-05-17] MEDS: cloNIDine HCL 0.1 MG TAB PO SCH (22:21)
[2018-05-17] MEDS: SODIUM POLYSTYRENE SULFONATE 15 GM/60 ML BOTTLE PO SCH (22:21)
[2018-05-17] MEDS: hydrALAZINE HCL 50 MG TAB PO SCH (22:22)
[2018-05-17] MEDS: HYDROcodone/APAP 5-325MG 1 EACH TAB PO PRN (22:31)
[2018-05-18] MEDS ORDERED: ONDANSETRON 4 MG/2 ML VIAL IVP STA (03:25)
[2018-05-18 03:46] LABS: Glucose,Whole Blood 271 mg/dL (75-99)
[2018-05-18] MEDS: HYDROcodone/APAP 5-325MG 1 EACH TAB PO PRN ×3 (06:57→20:29)
[2018-05-18] MEDS: INSULIN ASPART 100 UNIT/ML 1 ML 10 ML VIAL SQ SCH ×4 (08:30→23:15)
[2018-05-18 08:35] LABS: Anisocytosis Slight; Basophils % (A) 1 %; Eosinophils # (A) 0.1 k/uL (0-0.7); Eosinophils % (A) 1 %; HCT 23.1 % (34.0-46.0); HGB 7.6 gm/dL (11.4-16.0); Hypochromasia Slight; Lymphocytes # (A) 0.2 k/uL (1.0-4.8); Lymphocytes % (A) 5 %; MCH 32.6 pg (25.0-35.0); MCHC 32.8 g/dL (31.0-37.0); MCV 99.1 fL (80.0-100.0); Macrocytosis Slight; Mean Platelet Volume 7.7; Monocytes # (A) 0.2 k/uL (0-1.0); Monocytes % (A) 3 %; Neutrophils # (A) 4.3 k/uL (1.3-7.7); Neutrophils % (A) 90 %; Platelet Count 120 k/uL (150-450); RBC 2.33 m/uL (3.80-5.40); RDW 17.3 % (11.5-15.5); WBC 4.8 k/uL (3.8-10.6)
[2018-05-18 08:50] LABS: Albumin 4.5 g/dL (3.5-5.0); Calcium 8.5 mg/dL (8.4-10.2); Total Bilirubin 1.2 mg/dL (0.2-1.3); Total Protein 6.7 g/dL (6.3-8.2)
[2018-05-18 09:03] LABS: Glucose,Whole Blood 303 mg/dL (75-99)
[2018-05-18 09:23] LABS: Potassium 7.9 mmol/L (3.5-5.1)
[2018-05-18] MEDS: cloNIDine HCL 0.1 MG TAB PO SCH ×3 (10:04→22:49)
[2018-05-18] MEDS: hydrALAZINE HCL 50 MG TAB PO SCH ×3 (10:04→20:28)
[2018-05-18] MEDS: SEVELAMER 800 MG TAB PO SCH ×3 (10:05→17:48)
[2018-05-18] MEDS: FUROSEMIDE 80 MG TAB PO SCH ×2 (10:06→16:36)
[2018-05-18] MEDS: METOPROLOL TARTRATE 50 MG TAB PO SCH ×2 (10:06→20:28)
[2018-05-18] MEDS: amLODIPine 10 MG TAB PO SCH (10:07)
[2018-05-18] MEDS: DIAZEPAM 5 MG TAB PO SCH ×2 (10:07→20:28)
[2018-05-18] MEDS ORDERED: INSULIN REGULAR 100 UNIT/ML VIAL IV ONE (11:34)
[2018-05-18 11:40] LABS: Glucose,Whole Blood 335 mg/dL (75-99)
[2018-05-18] MEDS ORDERED: CALCIUM GLUCONATE 1,000 MG in SODIUM CHLORIDE 0.9% 100 ML IVPB ONE (11:45)
[2018-05-18] MEDS ORDERED: INSULIN ASPART 100 UNIT/ML 1 ML 10 ML VIAL SQ SCH (12:30)
[2018-05-18] MEDS ORDERED: DARBEPOETIN ALFA 40 MCG/0.4 ML SYRINGE SQ SCH (14:00)
[2018-05-18] MEDS: ASPIRIN 81 MG PO SCH (15:41)
--- NOTE | 2018-05-18 16:00 | CONS ---
CONSULTATION REASON FOR CONSULT: End-stage renal disease. HISTORY OF PRESENT ILLNESS: The patient is a 52-year-old female with end-stage renal disease, on hemodialysis on a Thursday, , Thursday schedule at the [facility]. The patient was admitted to the hospital with weakness, not feeling well. She was found to have potassium of 7.9. Blood sugar was elevated at 303 as well. The patient was also short of breath. She states she did not miss any dialysis. However, her treatment on Thursday was run short as she had leave early because of transportation. No complaints of chest pains currently. PAST MEDICAL HISTORY: End-stage renal disease, on hemodialysis. CKD mineral bone disorder, anemia of chronic disease, diabetes, dyslipidemia, history of hyperkalemia, maintained on Kayexalate as an outpatient, and coronary artery disease. PAST SURGICAL HISTORY: Uterine ablation, colonoscopy, polypectomy, pancreatic resection, bone marrow biopsies, AV fistula with revision. SOCIAL HISTORY: Negative for smoking, drug abuse or alcohol abuse. MEDICATIONS: Prior to admission included Lipitor, Flexeril, insulin, Requip, clonidine, Renvela, Norvasc, Lasix, Lopressor, omeprazole, Compazine, Valium, Neurontin, lactulose, hydralazine and [place]. ALLERGIES: INCLUDE CIPRO, IV CONTRAST, which the Cipro causes changes in eyesight and the IV contrast caused rash. EXAMINATION: The patient is currently comfortable, awake, alert, oriented x3. She is not in any acute distress. Blood pressure was 210/100, heart rate 88 per minute. Patient is afebrile. Examination of the heart S1, S2. Examination of lungs bilateral breath sounds are heard. Abdomen is soft, nontender. Exam of lower extremities shows no significant edema. TEST EQUIPMENT MECHANIC exam is grossly intact. LABS SHOW: Sodium 135, potassium 7.9, chloride 94, BUN 69, serum creatinine 9.74, hemoglobin of 7.6 g/dL. ASSESSMENT: 1. End-stage renal disease on hemodialysis on a Thursday, , Thursday schedule. 2. Hyperkalemia associated with hyperglycemia and renal failure. The patient will be dialyzed today. I will give IV insulin as glucose is elevated. 3. Hypertension, mainly volume sensitive. Expect improvement with hemodialysis. 4. Fluid overload. Increase UF to about 3-4 L as tolerated today. Patient will likely need another treatment tomorrow. 5. Anemia. No active bleeding noted at this time. Check stool for occult blood and maintain patient on Aranesp. PLAN: Hemodialysis today as well as in a.m. Start Aranesp. Check stool for occult blood. IV insulin x1 and calcium gluconate IV x1. The dialysis nurse is just finishing up with another patient. She should be down in another hour. MMODL / IJN: [id number] /
[2018-05-18 17:43] LABS: Glucose,Whole Blood 218 mg/dL (75-99)
[2018-05-18] MEDS: ATORVASTATIN 40 MG TAB PO SCH (20:28)
[2018-05-18 20:42] LABS: Glucose,Whole Blood 348 mg/dL (75-99)
[2018-05-18] MEDS: INSULIN DETEMIR 100 UNIT/ML 10 ML VIAL SQ SCH (22:50)
[2018-05-18] MEDS: CYCLOBENZAPRINE 5 MG TAB PO SCH (23:15)
[2018-05-18] MEDS: GABAPENTIN 100 MG CAP PO SCH (23:15)
[2018-05-19 05:37] LABS: Glucose,Whole Blood 116 mg/dL (75-99)
[2018-05-19] MEDS: INSULIN ASPART 100 UNIT/ML 1 ML 10 ML VIAL SQ SCH ×7 (06:22→22:38)
[2018-05-19] MEDS ORDERED: INSULIN ASPART 100 UNIT/ML 1 ML 10 ML VIAL SQ SCH (07:30)
[2018-05-19 07:38] LABS: Calcium 8.5 mg/dL (8.4-10.2); Potassium 5.7 mmol/L (3.5-5.1)
[2018-05-19 08:06] LABS: Anisocytosis Slight; Basophils % (A) 1 %; Eosinophils # (A) 0.1 k/uL (0-0.7); Eosinophils % (A) 2 %; Hypochromasia Slight; Lymphocytes # (A) 0.3 k/uL (1.0-4.8); Lymphocytes % (A) 10 %; MCH 32.6 pg (25.0-35.0); MCHC 32.9 g/dL (31.0-37.0); MCV 99.1 fL (80.0-100.0); Macrocytosis Slight; Mean Platelet Volume 7.6; Monocytes # (A) 0.2 k/uL (0-1.0); Monocytes % (A) 6 %; Neutrophils # (A) 2.7 k/uL (1.3-7.7); Neutrophils % (A) 81 %; Platelet Count 110 k/uL (150-450); RBC 1.89 m/uL (3.80-5.40); RDW 17.8 % (11.5-15.5); WBC 3.3 k/uL (3.8-10.6)
[2018-05-19 08:08] LABS: HCT 18.7 % (34.0-46.0)
[2018-05-19 08:09] LABS: HGB 6.2 gm/dL (11.4-16.0)
--- NOTE | 2018-05-19 08:59 | ECHOF ---
Referral Reason:effusion MEASUREMENTS -------- HEIGHT: 165.1 cm WEIGHT: 74.8 kg BP: 111/65 RVIDd: 3.3 cm (< 3.3) IVSd: 1.4 cm (0.6 - 1.1) LVIDd: 4.9 cm (3.9 - 5.3) LVPWd: 1.6 cm (0.6 - 1.1) IVSs: 1.8 cm LVIDs: 3.1 cm LVPWs: 1.8 cm LA Diam: 4.7 cm (2.7 - 3.8) LAESV Index (A-L): 45.53 ml/m Ao Diam: 3.2 cm (2.0 - 3.7) AV Cusp: 1.7 cm (1.5 - 2.6) LA Diam: 4.8 cm (2.7 - 3.8) MV EXCURSION: 18.742 mm (> 18.000) MV EF SLOPE: 60 mm/s (70 - 150) EPSS: 0.5 cm MV E Armando: 1.12 m/s MV DecT: 141 ms MV A Armando: 0.66 m/s MV E/A Ratio: 1.70 AV maxP.25 mmHg AV meanP.93 mmHg RAP: 5.00 mmHg RVSP: 72.40 mmHg FINDINGS -------- Sinus rhythm. This was a technically adequate study. The left ventricular size is normal. There is moderate concentric left ventricular hypertrophy. O verall left ventricular systolic function is low-normal with, an EF between 50 - 55 %. The right ventricle is normal in size. The left atrium is markedly dilated. LA is severely dilated >40 ml/m2 The right atrial size is normal. There is mild aortic valve sclerosis. There is no evidence of aortic regurgitation. Mild mitral annular calcification present. Mild mitral regurgitation is present. Moderate tricuspid regurgitation present. There is moderate to severe pulmonary hypertension. The right ventricular systolic pressure, as measured by Doppler, is 72.40mmHg. Trace/mild (physiologic) pulmonic regurgitation. The aortic root size is normal. There is a moderate, generalized pericardial effusion present. CONCLUSIONS -------- 1. The left ventricular size is normal. 2. There is moderate concentric left ventricular hypertrophy. 3. Overall left ventricular systolic function is low-normal with, an EF between 50 - 55 %. 4. The right ventricle is normal in size. 5. The left atrium is markedly dilated. 6. LA is severely dilated >40 ml/m2 7. The right atrial size is normal. 8. There is mild aortic valve sclerosis. 9. Mild mitral annular calcification present. 10. Mild mitral regurgitation is present. 11. Moderate tricuspid regurgitation present. 12. There is moderate to severe pulmonary hypertension. 13. The right ventricular systolic pressure, as measured by Doppler, is 72.40mmHg. 14. Trace/mild (physiologic) pulmonic regurgitation. 15. The aortic root size is normal. 16. There is a moderate, generalized pericardial effusion present. CLERICAL ADMINISTRATOR: Katie Stern RDCS
[2018-05-19 09:42] LABS: Glucose,Whole Blood 58 mg/dL (75-99)
[2018-05-19] MEDS: GABAPENTIN 100 MG CAP PO SCH ×3 (09:49→20:38)
[2018-05-19] MEDS: HYDROcodone/APAP 5-325MG 1 EACH TAB PO PRN ×3 (09:49→22:36)
[2018-05-19] MEDS: amLODIPine 10 MG TAB PO SCH (09:50)
[2018-05-19] MEDS: DIAZEPAM 5 MG TAB PO SCH ×2 (09:50→20:38)
[2018-05-19] MEDS: cloNIDine HCL 0.1 MG TAB PO SCH ×3 (09:51→22:36)
[2018-05-19] MEDS: FUROSEMIDE 80 MG TAB PO SCH ×2 (09:51→15:53)
[2018-05-19] MEDS: ASPIRIN 81 MG PO SCH (09:51)
[2018-05-19] MEDS: SEVELAMER 800 MG TAB PO SCH ×3 (09:51→17:58)
[2018-05-19] MEDS: METOPROLOL TARTRATE 50 MG TAB PO SCH ×2 (09:51→20:38)
[2018-05-19] MEDS: hydrALAZINE HCL 50 MG TAB PO SCH ×3 (09:51→22:36)
[2018-05-19 09:54] LABS: Glucose,Whole Blood 57 mg/dL (75-99)
[2018-05-19 10:04] LABS: Glucose,Whole Blood 99 mg/dL (75-99)
[2018-05-19 11:38] LABS: Glucose,Whole Blood 285 mg/dL (75-99)
--- NOTE | 2018-05-19 12:13 | PN ---
PROGRESS NOTE Patient is seen for followup for end-stage renal disease. She was dialyzed for about 2 hours yesterday. Serum potassium did come down to 5.7. Patient had about 2 L of ultrafiltration yesterday. This morning, hemoglobin is down to 6.2 g/dL. Patient has not had any active bleeding. She states that she has been evaluated by Hematology at [place] and has had multiple bone marrow biopsies done as well. She is being transfused 1 unit packed RBCs. Currently, patient is seen on hemodialysis. She is tolerating her treatment well. PHYSICAL EXAMINATION: This morning blood pressure was 135/67, heart rate 60 per minute. She is afebrile. Examination of the heart, S1, S2. Examination of the lungs, bilateral breath sounds are heard. Decreased breath sounds at the bases. Abdomen is soft, nontender. Examination of the lower extremities shows no evidence of edema. FINGERNAIL FORMER exam is grossly intact. LABS: Show sodium 136, potassium 5.7, creatinine 9.6, hemoglobin 6.2 g/dL. ASSESSMENT: 1. End-stage renal disease, on hemodialysis on Thursday, , Thursday schedule. Patient will be dialyzed again tomorrow. She is having an extra treatment today. 2. Fluid overload, currently improved. We will plan for 2 to 2.5 L again today and repeat in a.m. 3. Hyperkalemia, improved post dialysis. Expect further improvement after treatment today. 4. Anemia with no active bleeding noted. The patient states that she has been evaluated by Hematology previously as outpatient and has had bone marrow biopsies done. She is on the transplant list. Therefore, we will need to be careful with fast RBC transfusion. I will continue with the [facility]. She can have the 1 unit today. 5. Type 2 diabetes and hyperglycemia at the time of admission, currently improved. 6. CKD mineral bone disorder, maintained on Renvela. PLAN: Hemodialysis today as well as in a.m. and continue to monitor hemoglobin. Consider Hematology consult if hemoglobin drops further. MMODL / IJN: [id number] /
--- NOTE | 2018-05-19 15:58 | HP ---
HISTORY AND PHYSICAL DATE OF SERVICE: 05/18/2018 CHIEF COMPLAINT: [id number] white female, end-stage renal disease, on dialysis 3 times a day, admitted for progressive weakness. She has chronic cough, nonproductive. She denies lower extremity swelling. She continues to have urine output unchanged from baseline, but due to significant swelling and severe hypertension and fluid overload, she was admitted to the hospital. HOME MEDICINES: Include: 1. Flexeril. 2. Lantus. 3. Lipitor. 4. Clonidine. 5. Requip. 6. Renvela. 7. EMLA cream. 8. Humalog for diabetes mellitus. 9. Norvasc for hypertension. 10.Lasix for hypertension. 11.Lopressor for hypertension. 12.Omeprazole. 13.Compazine. 14.Valium. 15.Kayexalate. 16.Neurontin. ALLERGIES: CIPRO, IODINE. REVIEW OF SYSTEMS: Fourteen-point review of systems negative except for mentioned above. PAST MEDICAL HISTORY: 1. Heart failure. 2. Diabetes mellitus. 3. End-stage renal disease. 4. Hypertension. 5. Liver disease with cirrhosis. 6. History of renal disease. 7. Liver disease. 8. Dyslipidemia. 9. Chronic pancreatitis. She had a pancreatic resection. FAMILY HISTORY: Brother negative. Mom with diabetes mellitus, hypertension, cancer. Father with hypertension, dyslipidemia, coronary artery disease. PHYSICAL EXAMINATION: She has hypertension acceleration. Blood pressure is 200s over 90s, temperature 98, pulse 90s, respiratory rate 18, oxygen 94. CARDIOVASCULAR: S1, S2. HEAD: Normocephalic, atraumatic. LUNGS: Fairly good air flow. Normal sounds. HEART: Regular rate and rhythm. ABDOMEN: Soft, nontender. EXTREMITIES: No cyanosis, clubbing, edema. NEUROLOGIC: Alert and orient x3. ASSESSMENT: 1. Hypertension acceleration. 2. Fluid overload. 3. End-stage renal disease. 4. Pancytopenia. 5. Acute on chronic end-stage renal disease. 6. Hyperkalemia. 7. Diabetes mellitus. 8. Hypothyroidism. She will be dialyzed. Hyperkalemia will be treated with Kayexalate. Acute on chronic anemia; possible blood transfusion if it drops. Home medicines will be monitored. Please see further orders. MMODL / IJN: [id number] /
--- NOTE | 2018-05-19 15:58 | PN ---
PROGRESS NOTE SUBJECTIVE: 52-year-old white female admitted to the hospital with severe hypertension acceleration, end stage renal disease with fluid overload. She was found to be in severe hypertension flare which was treated. She had hyperkalemia which was treated. She is found to be severely anemic at this time and secondary shortness of breath. We did give her transfuse 1 unit of blood for hemoglobin less than 7 today. Cardiovascular S1, S2. MUSCULOSKELETAL: She is up walking a little bit, despite low hemoglobin. She was warned not to walk to until she gets a blood transfusion. Echo shows heart is pumping normal 55-50 percent, temp 97 to 98, pulse is 60s to 80s, respiratory 16-18, blood pressure is down under better control with 130s to 150s over 50s to 60s. ASSESSMENT: 1. Hypertension acceleration improved. 2. End-stage renal disease with fluid overload improved. 3. Severe anemia. Blood transfusion today. Monitor for any signs of bleeding. Continue current treatments. Possible discharge home after blood transfusion tomorrow. She has moderate to large size pericardial effusion for which Cardiology is being consulted. MMODL / IJN: [id number] /
[2018-05-19] MEDS: ONDANSETRON 4 MG/2 ML VIAL IVP PRN ×2 (16:57→23:03)
[2018-05-19 17:12] LABS: Glucose,Whole Blood 206 mg/dL (75-99)
--- NOTE | 2018-05-19 18:01 | CONS ---
CONSULTATION CHIEF COMPLAINT: Shortness of breath. Sara is a 52-year-old lady with history of end-stage renal disease on hemodialysis, who was admitted to hospital with worsening shortness of breath. She has a history of hypertension and insulin-requiring diabetes. She also felt weak and unwell and she had been dialyzed twice following which her shortness of breath has improved. At the time of my evaluation, she appears comfortable, shortness of breath has improved. Does not have any leg edema. Patient takes an 80 mg b.i.d. of Lasix at home. In spite of this, she states that she is becoming short of breath in between her dialysis. PAST MEDICAL HISTORY: Significant for hypertension, insulin-requiring diabetes, end-stage renal disease on hemodialysis. MEDICATIONS: At home included Requip 1 mg t.i.d., Apresoline 100 t.i.d., Catapres 0.3 t.i.d., Norvasc 10 q. daily, Lopressor 50 b.i.d., insulin, Neurontin, Lasix 80 b.i.d. Valium, Flexeril, and atorvastatin. ALLERGIC: TO CIPRO and IV DYE. FAMILY HISTORY: Negative for premature coronary artery disease. SOCIAL HISTORY: Negative for smoking, EtOH abuse or drug abuse. REVIEW OF SYSTEMS: HEENT is unremarkable. Cardiac as described above. Respiratory as described above. GI negative. Genitourinary as described above. Psychosocial negative. Endocrine: Negative. DERM: Negative. Constitutional: Negative. Oncological negative. CENTRAL NERVOUS SYSTEM: Negative. Rest of the system review is not relevant. EXAM: Comfortable at rest. Heart rate is 69 with a blood pressure is 149/70. Respirations 18. Chest exam reveals good air entry bilaterally. I do not hear any crackles or rhonchi. Heart exam reveals first and second heart sounds. An S4 is heard. Abdomen is soft. Exam of the extremities did not reveal edema. Peripheral pulses are felt. SALESPERSON JEWELRY exam did not reveal focal neurological deficits. LAB: Show that the hemoglobin is 6.2, platelet count is 110. Potassium is 5.7, BUN is 73, creatinine is 9.6. EKG shows sinus rhythm with incomplete right bundle branch block. Echocardiogram shows normal LV systolic function with severe pulmonary hypertension. Troponin is negative. ASSESSMENT: 1. Acute onset congestive heart failure probably secondary to diastolic dysfunction and underlying renal failure. 2. End-stage renal disease on hemodialysis. 3. Hypertension. PLAN: The patient's symptoms are getting better with dialysis. I am going to talk to the banquet captain about increasing the dose of Lasix to 80 t.i.d., and we will continue with optimal control of her hypertension. MMODL / IJN: [id number] /
[2018-05-19 19:13] LABS: Hepatitis B Surface AB- Quant 3.5 mIU/mL
[2018-05-19 20:15] LABS: Glucose,Whole Blood 178 mg/dL (75-99)
[2018-05-19] MEDS: ATORVASTATIN 40 MG TAB PO SCH (20:37)
[2018-05-19] MEDS: CYCLOBENZAPRINE 5 MG TAB PO SCH (20:38)
[2018-05-19] MEDS: INSULIN DETEMIR 100 UNIT/ML 10 ML VIAL SQ SCH ×2 (21:26→22:37)
[2018-05-19] MEDS: SODIUM POLYSTYRENE SULFONATE 15 GM/60 ML BOTTLE PO SCH (22:44)
--- NOTE | 2018-05-19 23:42 | P.CNPUL ---
History of Present Illness Consult date: 05/19/18 Reason for consult: dyspnea, chest pain Chief complaint: Shortness of breath low oxygen saturation History of present illness: Ms. Amaya is a 52-year-old female with end-stage renal disease on hemodialysis patient get hemodialysis 3 times a week with the last hemodialysis performed 2 days prior to coming into the hospital, in the last 1 week patient has been more short of breath than baseline, denies any chest pain she does have the intermittent dry nonproductive cough due to problems associated with Progressive increased shortness of breath patient was evaluated and admitted into the hospital, workup and evaluation revealed pericardial effusion and interstitial edema off note that her arrival patient had hypertensive emergency 210/110 with hypoxia on room air she had leukopenia WBC count of 2.4 with hemoglobin of 7.5 which is stable from baseline, patient suspected to have uremic pericardial effusion consultation with cardiovascular services as well as nephrology obtained, on arrival her BUN/creatinine 63/8.56, patient underwent back to back to dialysis feels slightly better, patient has been evaluated by cardiovascular services, echocardiogram on May 18 revealed ejection fraction 50-55% LA severely dilated over 40 mL per meter squire, will be hypertension is noted with moderate TR, PA P 72, moderate generalized pericardial effusion noted, early vascular service recommended continuation of dialysis and close monitoring and observation with high-dose Lasix Review of Systems All systems: negative Past Medical History Past Medical History: Blood Disorder, Heart Failure, Diabetes Mellitus, Dialysis , Hyperlipidemia, Hypertension, Liver Disease, Pneumonia, Renal Disease Additional Past Medical History / Comment(s): Bilateral cataracts, recently diagnosed with bilateral retinal hemorrhages, hypertriglyceridemia-induced acute pancreatitis, THEN necrotizing pancreatitis. hemodialysis for acute kidney injury 2 months in 2009 after pancreatic OR, 11/2015 diagnosed w/ chronic kidney disease-hemodialysis /-last hemodialysis 05/15/18, IDDM type II, past DKA, pt states she has dry heaves day after dialysis, UTI, chronic anemia, frequent body cramping, occasional low back pain, carter's palsy x2, past L leg fx, possible liver disease-recent liver bx-results unknown per pt. History of Any Multi-Drug Resistant Organisms: None Reported Past Surgical History: Orthopedic Surgery, Uterine Ablation Additional Past Surgical History / Comment(s): Recent liver biopsy done at [place] but pt states they have never contacted her with the results, 08/26/17 colonoscopy with polypectomy/bx, pancreatic resection at [facility] 2009, bone marrow biopsies X2-last one 05/19/16,. dialysis chest port x 2 with removals , Left arm shunt placement for dialysis - December 2015 and a revision done with shunt. Past Anesthesia/Blood Transfusion Reactions: No Reported Reaction Additional Past Anesthesia/Blood Transfusion Reaction / Comment(s): Pt has received blood transfusions without reaction. Smoking Status: Never smoker - Past Family History Brother(s) Family Medical History: No Reported History Mother Family Medical History: Cancer, Diabetes Mellitus, Hypertension Additional Family Medical History / Comment(s): Mother of throat cancer at the age of 63 yrs. She was a smoker. Father Family Medical History: Coronary Artery Disease (CAD), Hyperlipidemia, Hypertension Additional Family Medical History / Comment(s): Father is 70 yrs old. Medications and Allergies Home Medications Medication Instructions Recorded Confirmed Type Atorvastatin [Lipitor] 40 mg PO HS 09/14/15 05/17/18 History Cyclobenzaprine [Flexeril] 5 mg PO HS 09/14/15 05/17/18 History Insulin Glargine [Lantus] 80 unit SQ HS 04/18/16 05/17/18 History hydrALAZINE HCL [Apresoline] 100 mg PO TID #180 tab 06/10/16 05/17/18 Rx cloNIDine HCL 0.3 mg PO TID 12/16/16 05/17/18 History rOPINIRole HCL [Requip] 1 mg PO TID 02/07/17 05/17/18 History Sevelamer [Renvela] 800 mg PO DAILY PRN 08/21/17 05/17/18 History Lidocaine-Prilocaine Cream [Emla 1 applic TOPICAL TUTHSA PRN 09/21/17 05/17/18 History Cream 2.5%/2.5%] HYDROcodone/APAP 5-325MG [[place] 1 tab PO Q8HR PRN #45 tab 09/24/17 05/17/18 Rx 5-325] amLODIPine [Norvasc] 10 mg PO DAILY 10/06/17 05/17/18 History Furosemide [Lasix] 80 mg PO BID 10/22/17 05/17/18 History Metoprolol Tartrate [Lopressor] 50 mg PO BID 10/22/17 05/17/18 History Omeprazole 20 mg PO DAILY 10/22/17 05/17/18 History Prochlorperazine [Compazine] 5 mg PO BID PRN 10/26/17 05/17/18 History Diazepam [Valium] 5 mg PO BID 02/10/18 05/17/18 History Erythromycin Ophth Oint [Romycin 1 applic BOTH EYES DAILY 02/10/18 05/17/18 History Ophth Oint] Magnesium Gluconate [Magonate] 500 mg PO BID 02/10/18 05/17/18 History Sodium Polystyrene Sulfonate 15 gm PO SUMOWEFR 02/10/18 05/17/18 History [Kayexalate] Triphrocaps 1 cap PO DAILY 02/10/18 05/17/18 History Lactulose 10 gm PO TID PRN 03/13/18 05/17/18 History Sevelamer [Renvela] 2,400 mg PO AC-TID 03/13/18 05/17/18 History Gabapentin [Neurontin] 100 mg PO TID 05/17/18 05/17/18 History INSULIN LISPRO (humaLOG) [humaLOG] 20 unit PO AC-TID 05/17/18 05/17/18 History INSULIN LISPRO (humaLOG) [humaLOG] See Protocol SQ DIRECTED 05/17/18 History Promethazine 6.25MG/5Ml [Phenergan 6.25 mg PO Q6HR PRN 05/17/18 05/17/18 History Syrup] Allergies Allergy/AdvReac Type Severity Reaction Status Date / Time ciprofloxacin [From Cipro] AdvReac AFFECTED Verified 05/17/18 20:55 EYESIGHT ciprofloxacin HCl AdvReac AFFECTED Verified 05/17/18 20:55 [From Cipro] EYESIGHT Iodinated Contrast- Oral and AdvReac RENAL Verified 05/17/18 20:55 IV Dye FAILURE Physical Exam Vitals: Vital Signs Temp Pulse Pulse Resp BP BP Pulse Ox 05/19/18 23:30 98.4 F 63 17 149/70 99 05/19/18 20:00 98.7 F 71 17 138/66 91 L 05/19/18 18:02 98.9 F 71 18 141/69 91 L 05/19/18 16:16 98.5 F 69 18 149/71 94 L 05/19/18 15:46 98.6 F 67 18 131/68 96 05/19/18 15:36 98.6 F 69 18 132/64 90 L 05/19/18 12:00 98.3 F 66 18 112/53 95 05/19/18 08:30 97.7 F 60 18 135/67 96 05/19/18 04:00 97.9 F 68 17 146/66 95 Intake and Output 05/19/18 05/19/18 05/20/18 14:59 22:59 06:59 Intake Total 240 550 Balance 240 550 Intake: Oral 240 240 Blood Product 310 Rc Irr As1 Unit 310 [id number] Other: Voiding Method Toilet Toilet Toilet # Voids 2 General appearance: alert, in no apparent distress Head exam: Present: atraumatic, normocephalic Eye exam: Present: normal appearance, PERRL ENT exam: Present: normal exam Neck exam: Present: normal inspection. Absent: tenderness, meningismus Respiratory exam: Present: normal lung sounds bilaterally, rales, decreased breath sounds Cardiovascular Exam: Present: regular rate, normal rhythm, other (Distant heart sounds) GI/Abdominal exam: Present: soft, distended Extremities exam: Present: normal inspection, normal capillary refill. Absent: pedal edema, calf tenderness Neurological exam: Present: alert, oriented X3, CN II-XII intact. Absent: motor sensory deficit Psychiatric exam: Present: normal affect, normal mood Skin exam: Present: warm, dry, intact. Absent: cyanosis, diaphoretic Results - Laboratory Findings CBC and BMP: 05/19/18 06:08 05/19/18 06:08 PT/INR, D-dimer PT 10.4 sec (9.0-12.0) 05/17/18 19:14 INR 1.0 (<1.2) 05/17/18 19:14 Abnormal lab findings: Abnormal Labs 05/17/18 05/17/18 05/17/18 19:14 19:14 19:14 WBC 2.4 L RBC 2.32 L Hgb 7.5 L Hct 22.7 L RDW 17.4 H Plt Count 100 L Lymphocytes # 0.2 L Sodium Potassium 5.3 H Chloride 95 L BUN 63 H Creatinine 8.56 H* Glucose 240 H POC Glucose (mg/dL) AST 40 H ALT 76 H Total Creatine Kinase 185 H CK-MB (CK-2) 3.2 H Crossmatch 05/18/18 05/18/18 05/18/18 03:09 08:00 08:00 WBC RBC 2.33 L Hgb 7.6 L Hct 23.1 L RDW 17.3 H Plt Count 120 L Lymphocytes # 0.2 L Sodium 135 L Potassium 7.9 H* Chloride 94 L BUN 69 H Creatinine 9.74 H* Glucose 289 H POC Glucose (mg/dL) 271 H AST ALT 65 H Total Creatine Kinase CK-MB (CK-2) Crossmatch 05/18/18 05/18/18 05/18/18 08:10 11:21 17:41 WBC RBC Hgb Hct RDW Plt Count Lymphocytes # Sodium Potassium Chloride BUN Creatinine Glucose POC Glucose (mg/dL) 303 H 335 H 218 H AST ALT Total Creatine Kinase CK-MB (CK-2) Crossmatch 05/18/18 05/19/18 05/19/18 20:39 05:36 06:08 WBC 3.3 L RBC 1.89 L Hgb 6.2 L* Hct 18.7 L* RDW 17.8 H Plt Count 110 L Lymphocytes # 0.3 L Sodium Potassium Chloride BUN Creatinine Glucose POC Glucose (mg/dL) 348 H 116 H AST ALT Total Creatine Kinase CK-MB (CK-2) Crossmatch 05/19/18 05/19/18 05/19/18 06:08 08:45 09:41 WBC RBC Hgb Hct RDW Plt Count Lymphocytes # Sodium 136 L Potassium 5.7 H Chloride 95 L BUN 73 H Creatinine 9.66 H* Glucose POC Glucose (mg/dL) 58 L AST ALT Total Creatine Kinase CK-MB (CK-2) Crossmatch See Detail 05/19/18 05/19/18 05/19/18 09:43 11:36 17:00 WBC RBC Hgb Hct RDW Plt Count Lymphocytes # Sodium Potassium Chloride BUN Creatinine Glucose POC Glucose (mg/dL) 57 L 285 H 206 H AST ALT Total Creatine Kinase CK-MB (CK-2) Crossmatch 05/19/18 20:14 WBC RBC Hgb Hct RDW Plt Count Lymphocytes # Sodium Potassium Chloride BUN Creatinine Glucose POC Glucose (mg/dL) 178 H AST ALT Total Creatine Kinase CK-MB (CK-2) Crossmatch - Diagnostic Findings Chest x-ray: report reviewed, image reviewed (Echocardiogram results reviewed as well) Assessment and Plan Assessment: Shortness of breath multifactorial related to pericardial effusion and pulmonary edema related to diastolic heart failure Uncontrolled hypertension related to hypertensive emergency End-stage renal disease on hemodialysis Pericardial effusion without any temp or not physiology Anemia of chronic disease will defer renal services for blood transfusion End-stage renal disease stage V agree with [id number] multiple dialysis and diuresis Bilateral interstitial edema likely related to heart failure will hold on antibiotics and monitor clinical course closely, repeat chest x-ray tomorrow Plan: Agree with hemodialysis [id number] as planned We will defer blood transfusion to renal service with hemodialysis Continue diuresis Further management plan as per clinical response of the patient hasn't as noted above, repeat chest x-ray tomorrow Time with Patient: Greater than 30
[2018-05-20] MEDS ORDERED: PROCHLORPERAZINE 5 MG TAB PO PRN (01:46)
[2018-05-20] MEDS: ONDANSETRON 4 MG/2 ML VIAL IVP PRN ×3 (03:35→19:49)
[2018-05-20 06:04] LABS: Glucose,Whole Blood 136 mg/dL (75-99)
[2018-05-20] MEDS: INSULIN ASPART 100 UNIT/ML 1 ML 10 ML VIAL SQ SCH ×7 (06:27→21:07)
[2018-05-20] MEDS: HYDROcodone/APAP 5-325MG 1 EACH TAB PO PRN ×2 (06:49→19:49)
[2018-05-20 06:53] LABS: Anisocytosis Slight; Basophils % (A) 1 %; Eosinophils # (A) 0.1 k/uL (0-0.7); Eosinophils % (A) 3 %; HCT 22.7 % (34.0-46.0); HGB 7.5 gm/dL (11.4-16.0); Lymphocytes # (A) 0.5 k/uL (1.0-4.8); Lymphocytes % (A) 16 %; MCHC 32.9 g/dL (31.0-37.0); MCV 94.4 fL (80.0-100.0); Mean Platelet Volume 7.4; Monocytes # (A) 0.3 k/uL (0-1.0); Monocytes % (A) 8 %; Neutrophils # (A) 2.3 k/uL (1.3-7.7); Neutrophils % (A) 70 %; Platelet Count 121 k/uL (150-450); RBC 2.41 m/uL (3.80-5.40); RDW 19.2 % (11.5-15.5); WBC 3.2 k/uL (3.8-10.6)
--- NOTE | 2018-05-20 06:55 | P.PN ---
Subjective Progress Note Date: 05/20/18 Principal diagnosis: Acute hypoxic respiratory failure, hypertensive emergency, end-stage renal disease with hemodialysis, uremic pericardial effusion, interstitial edema and pulmonary edema related to multifactorial processes as noted above, hyperkalemia related to end-stage renal disease, chronic anemia, 05/20/2018, patient seen eval reexamined during the rounds, patient is less short of breath she has received 2 hemodialysis [id number] third is pending, patient during evaluation is in process of getting chest X, final report is pending, continue show massive cardiomegaly, interstitial edema still present, overall findings are not much different compared to x-ray performed 05/17/2018, labs from today is pending patient remains afebrile, see and saturations 99% on 2 L Ms. Amaya is a 52-year-old female with end-stage renal disease on hemodialysis patient get hemodialysis 3 times a week with the last hemodialysis performed 2 days prior to coming into the hospital, in the last 1 week patient has been more short of breath than baseline, denies any chest pain she does have the intermittent dry nonproductive cough due to problems associated with Progressive increased shortness of breath patient was evaluated and admitted into the hospital, workup and evaluation revealed pericardial effusion and interstitial edema off note that her arrival patient had hypertensive emergency 210/110 with hypoxia on room air she had leukopenia WBC count of 2.4 with hemoglobin of 7.5 which is stable from baseline, patient suspected to have uremic pericardial effusion consultation with cardiovascular services as well as nephrology obtained, on arrival her BUN/creatinine 63/8.56, patient underwent back to back to dialysis feels slightly better, patient has been evaluated by cardiovascular services, echocardiogram on May 18 revealed ejection fraction 50-55% LA severely dilated over 40 mL per meter squire, will be hypertension is noted with moderate TR, PA P 72, moderate generalized pericardial effusion noted, early vascular service recommended continuation of dialysis and close monitoring and observation with high-dose Lasix Objective - Vital Signs Vital signs: Vital Signs Temp 97.9 F 05/20/18 03:58 Pulse 63 05/20/18 03:58 Resp 17 05/20/18 03:58 BP 152/71 05/20/18 03:58 Pulse Ox 99 05/20/18 03:58 Intake & Output 01/09/19 01/09/19 01/10/19 06:59 18:59 06:59 Intake Total 240 790 240 Output Total 200 Balance 40 790 240 Weight 77.9 kg 77.3 kg Intake: Oral 240 480 240 Blood Product 310 Rc Irr As1 Unit 310 [id number] Output: Urine 200 Other: Voiding Method Bedside Commode Toilet Toilet # Voids 2 2 1 - Constitutional General appearance: Present: average body habitus, cooperative, disheveled, mild distress - EENT Eyes: Present: EOMI, poor dentition, normal appearance ENT: Present: normal oropharynx Ears: bilateral: normal - Neck Carotids: bilateral: upstroke normal Thyroid: bilateral: normal size - Respiratory Respiratory: bilateral: diminished, rales (Few basal crackles), negative: CTA, rhonchi, wheezing, prolonged expiration, prolonged inspiration - Cardiovascular Rhythm: regular Heart sounds: normal: S1, S2 - Gastrointestinal General gastrointestinal: Present: decreased bowel sounds, soft - Integumentary Integumentary: Present: normal turgor - Neurologic Neurologic: Present: CNII-XII intact - Musculoskeletal Musculoskeletal: Present: gait normal, generalized weakness, strength equal bilaterally - Psychiatric Psychiatric: Present: A&O x's 3, appropriate affect, intact judgment & insight - Labs CBC & Chem 7: 05/19/18 06:08 05/19/18 06:08 Labs: Abnormal Lab Results - Last 24 Hours (Table) 05/19/18 05/19/18 05/19/18 Range/Units 06:08 06:08 08:45 WBC 3.3 L (3.8-10.6) k/uL RBC 1.89 L (3.80-5.40) m/uL Hgb 6.2 L* (11.4-16.0) gm/dL Hct 18.7 L* (34.0-46.0) % RDW 17.8 H (11.5-15.5) % Plt Count 110 L (150-450) k/uL Lymphocytes # 0.3 L (1.0-4.8) k/uL Sodium 136 L (137-145) mmol/L Potassium 5.7 H (3.5-5.1) mmol/L Chloride 95 L (98-107) mmol/L BUN 73 H (7-17) mg/dL Creatinine 9.66 H* (0.52-1.04) mg/dL POC Glucose (mg/dL) (75-99) mg/dL Crossmatch See Detail 05/19/18 05/19/18 05/19/18 Range/Units 09:41 09:43 11:36 WBC (3.8-10.6) k/uL RBC (3.80-5.40) m/uL Hgb (11.4-16.0) gm/dL Hct (34.0-46.0) % RDW (11.5-15.5) % Plt Count (150-450) k/uL Lymphocytes # (1.0-4.8) k/uL Sodium (137-145) mmol/L Potassium (3.5-5.1) mmol/L Chloride (98-107) mmol/L BUN (7-17) mg/dL Creatinine (0.52-1.04) mg/dL POC Glucose (mg/dL) 58 L 57 L 285 H (75-99) mg/dL Crossmatch 05/19/18 05/19/18 05/20/18 Range/Units 17:00 20:14 05:59 WBC (3.8-10.6) k/uL RBC (3.80-5.40) m/uL Hgb (11.4-16.0) gm/dL Hct (34.0-46.0) % RDW (11.5-15.5) % Plt Count (150-450) k/uL Lymphocytes # (1.0-4.8) k/uL Sodium (137-145) mmol/L Potassium (3.5-5.1) mmol/L Chloride (98-107) mmol/L BUN (7-17) mg/dL Creatinine (0.52-1.04) mg/dL POC Glucose (mg/dL) 206 H 178 H 136 H (75-99) mg/dL Crossmatch - Imaging and Cardiology Chest x-ray: report reviewed, image reviewed (Echocardiogram results and reports reviewed) Assessment and Plan Assessment: Shortness of breath multifactorial related to pericardial effusion and pulmonary edema related to diastolic heart failure, continued to improve Uncontrolled hypertension related to hypertensive emergency, now back to baseline End-stage renal disease on hemodialysis, scheduled to get third dialysis today will defer blood transfusion with that too renal services Pericardial effusion without any temponade physiology Anemia of chronic disease will defer renal services for blood transfusion End-stage renal disease stage V agree with [id number] multiple dialysis and diuresis Bilateral interstitial edema likely related to heart failure will hold on antibiotics and monitor clinical course closely, repeat chest x-ray tomorrow Plan: Agree with hemodialysis [id number] as planned We will defer blood transfusion to renal service with hemodialysis Continue diuresis Further management plan as per clinical response of the patient hasn't as noted above, repeat chest x-ray reviewed will follow clinical course closely further recommendations pending Time with Patient: Greater than 30
--- NOTE | 2018-05-20 07:12 | XR ---
EXAMINATION TYPE: XR chest 1V portable DATE OF EXAM: 05/20/2018 CLINICAL HISTORY: Difficulty breathing and pleural effusion progress study. TECHNIQUE: Single AP portable frontal view of the chest is obtained. COMPARISON: Chest x-ray from 3 days earlier and older studies. CT chest 06/29/2017. FINDINGS: Overlying EKG leads are now present. Cardiac silhouette size remains enlarged which correl ates with large pericardial effusion on CT. Faint bilateral opacities centrally remain present. No pl eural effusion or pneumothorax is seen. No new suspicious focal consolidation is present. Osseous str uctures are intact. IMPRESSION: Overall stable findings, enlarged cardiac silhouette corresponding to large pericardial effusion with persistent mild central bilateral alveolar edema. No significant change from most rece nt chest x-ray.
[2018-05-20] MEDS: SEVELAMER 800 MG TAB PO SCH ×3 (08:19→17:31)
[2018-05-20 08:35] LABS: Albumin 3.7 g/dL (3.5-5.0); Calcium 8.6 mg/dL (8.4-10.2); Total Bilirubin 0.7 mg/dL (0.2-1.3); Total Protein 6.1 g/dL (6.3-8.2)
[2018-05-20] MEDS: GABAPENTIN 100 MG CAP PO SCH ×3 (09:00→21:07)
[2018-05-20] MEDS: DIAZEPAM 5 MG TAB PO SCH ×2 (09:00→21:07)
[2018-05-20] MEDS ORDERED: GELATIN SPONGE,ABSORB (LARGE) 1 EACH SPONGE ONE (09:00)
--- NOTE | 2018-05-20 09:40 | P.PN ---
Subjective Progress Note Date: 05/20/18 This is a pleasant 52-year-old female with history of end-stage renal disease on hemodialysis who presented to the hospital with symptoms of worsening shortness of breath. Patient has a known history of hypertension, diabetes, hyperlipidemia. Patient has had dialysis 2 since her arrival here, she does state that her breathing overall is significantly improved. Echocardiogram with Doppler study was performed which revealed an ejection fraction of 50-55%. LA is severely dilated, mild mitral regurgitation and moderate tricuspid regurg. Moderate to severe pulmonary hypertension. Moderate generalized pericardial effusion. Blood pressure this morning 150/70 with a heart rate in the 60s, 99% on 2 L of oxygen. White blood cell count 3.2 , hemoglobin 7.5, platelet count 121. Sodium 137, potassium 5.0, BUN 48 and creatinine 7.3. Patient does state that she is urinating quite a bit. Her weight is not reflective of this. Objective - Vital Signs Vital signs: Vital Signs Temp 97.9 F 05/20/18 03:58 Pulse 63 05/20/18 03:58 Resp 17 05/20/18 03:58 BP 152/71 05/20/18 03:58 Pulse Ox 99 05/20/18 03:58 Intake & Output 05/19/18 05/20/18 05/20/18 18:59 06:59 18:59 Intake Total 790 240 100 Balance 790 240 100 Weight 77.3 kg Intake: Oral 480 240 100 Blood Product 310 Rc Irr As1 Unit 310 [id number] Other: Voiding Method Toilet Toilet # Voids 2 1 - Exam PHYSICAL EXAMINATION: GENERAL: 52-year-old female in no acute distress at the time of my examination HEENT: Head is atraumatic, normocephalic. Pupils equal, round. Sclera anicteric. Conjunctiva are clear. Mucous membranes of the mouth are moist. Neck is supple. There is no elevated jugular venous pressure. No carotid bruit is heard. HEART EXAMINATION: Heart S1, S2 normal. No murmur or gallop heard. CHEST EXAMINATION: Lungs are clear with mild diminished air entry to the bases ABDOMEN: Soft, nontender. Bowel sounds are heard. No organomegaly noted. EXTREMITIES: 2+ peripheral pulses with trace evidence of peripheral edema and no calf tenderness noted. NEUROLOGIC patient is awake, alert and oriented 3 . . - Labs CBC & Chem 7: 05/20/18 06:14 05/20/18 06:14 Labs: Abnormal Lab Results - Last 24 Hours (Table) 05/19/18 05/19/18 05/19/18 Range/Units 08:45 09:41 09:43 WBC (3.8-10.6) k/uL RBC (3.80-5.40) m/uL Hgb (11.4-16.0) gm/dL Hct (34.0-46.0) % RDW (11.5-15.5) % Plt Count (150-450) k/uL Lymphocytes # (1.0-4.8) k/uL Chloride (98-107) mmol/L BUN (7-17) mg/dL Creatinine (0.52-1.04) mg/dL Glucose (74-99) mg/dL POC Glucose (mg/dL) 58 L 57 L (75-99) mg/dL ALT (9-52) U/L Total Protein (6.3-8.2) g/dL Crossmatch See Detail 05/19/18 05/19/18 05/19/18 Range/Units 11:36 17:00 20:14 WBC (3.8-10.6) k/uL RBC (3.80-5.40) m/uL Hgb (11.4-16.0) gm/dL Hct (34.0-46.0) % RDW (11.5-15.5) % Plt Count (150-450) k/uL Lymphocytes # (1.0-4.8) k/uL Chloride (98-107) mmol/L BUN (7-17) mg/dL Creatinine (0.52-1.04) mg/dL Glucose (74-99) mg/dL POC Glucose (mg/dL) 285 H 206 H 178 H (75-99) mg/dL ALT (9-52) U/L Total Protein (6.3-8.2) g/dL Crossmatch 05/20/18 05/20/18 05/20/18 Range/Units 05:59 06:14 06:14 WBC 3.2 L (3.8-10.6) k/uL RBC 2.41 L (3.80-5.40) m/uL Hgb 7.5 L (11.4-16.0) gm/dL Hct 22.7 L (34.0-46.0) % RDW 19.2 H (11.5-15.5) % Plt Count 121 L (150-450) k/uL Lymphocytes # 0.5 L (1.0-4.8) k/uL Chloride 96 L (98-107) mmol/L BUN 48 H (7-17) mg/dL Creatinine 7.33 H* (0.52-1.04) mg/dL Glucose 121 H (74-99) mg/dL POC Glucose (mg/dL) 136 H (75-99) mg/dL ALT 61 H (9-52) U/L Total Protein 6.1 L (6.3-8.2) g/dL Crossmatch Assessment and Plan Plan: Assessment and plan #1 diastolic congestive heart failure acute on chronic #2 end-stage renal disease on hemodialysis #3 hypertension #4 diabetes #5 hyperlipidemia Plan From cardiology's perspective, we'll continue the patient on her current medications. She is scheduled to undergo dialysis again today. We will continue to follow. DNP note has been reviewed, I agree with a documented findings and plan of care. Patient was seen and examined.
[2018-05-20 11:47] LABS: Glucose,Whole Blood 104 mg/dL (75-99)
--- NOTE | 2018-05-20 12:13 | PN ---
PROGRESS NOTE The patient is seen for followup for end-stage renal disease. She is currently seen on hemodialysis. She is tolerating her treatment well. PHYSICAL EXAMINATION: On examination, blood pressure was 125/72, heart rate 64 per minute. She is afebrile. Examination shows patient is euvolemic with no evidence of edema bilateral lower extremities. Her facial edema is improved as well. Abdomen is soft, nontender. LABS: Labs show sodium 137, potassium 5.0, BUN 48, serum creatinine 7.3, hemoglobin 7.5 g/dL ASSESSMENT: 1. End-stage renal disease, on hemodialysis on a Thursday, , Thursday schedule. Patient is currently seen on dialysis. She is tolerating her treatment well. 2. Anemia, previous history of anemia, being worked up and being followed by Hematology as outpatient. The patient has had bone marrow biopsies done. There is no evidence of gastrointestinal bleed at this time. 3. Fluid overload, currently improved. 4. Hyperkalemia, now improved on dialysis. 5. Congestive heart failure, acute on top chronic mainly diastolic. 6. Chronic kidney disease mineral bone disorder. PLAN: Hemodialysis today. Next treatment will be on Thursday, which can be done as outpatient. MMODL / IJN: [id number] /
[2018-05-20] MEDS: hydrALAZINE HCL 50 MG TAB PO SCH ×3 (12:17→21:07)
[2018-05-20] MEDS: cloNIDine HCL 0.1 MG TAB PO SCH ×3 (12:17→21:07)
[2018-05-20] MEDS: FUROSEMIDE 80 MG TAB PO SCH ×2 (12:18→17:25)
[2018-05-20] MEDS: ASPIRIN 81 MG PO SCH (12:18)
[2018-05-20] MEDS: METOPROLOL TARTRATE 50 MG TAB PO SCH ×2 (12:18→21:07)
[2018-05-20] MEDS: amLODIPine 10 MG TAB PO SCH (12:18)
[2018-05-20 17:06] LABS: Glucose,Whole Blood 127 mg/dL (75-99)
[2018-05-20 20:37] LABS: Glucose,Whole Blood 168 mg/dL (75-99)
[2018-05-20] MEDS: ATORVASTATIN 40 MG TAB PO SCH (21:07)
[2018-05-20] MEDS: CYCLOBENZAPRINE 5 MG TAB PO SCH (21:07)
[2018-05-21 06:03] LABS: Glucose,Whole Blood 227 mg/dL (75-99)
[2018-05-21] MEDS: SEVELAMER 800 MG TAB PO SCH ×2 (07:04→12:00)
[2018-05-21] MEDS: INSULIN ASPART 100 UNIT/ML 1 ML 10 ML VIAL SQ SCH ×4 (07:05→12:00)
[2018-05-21 07:36] VITALS: BP 167/79; PULSE 66; RESP 17; TEMP 98.4
[2018-05-21] MEDS: GABAPENTIN 100 MG CAP PO SCH (07:36)
[2018-05-21] MEDS: cloNIDine HCL 0.1 MG TAB PO SCH (07:36)
[2018-05-21] MEDS: DIAZEPAM 5 MG TAB PO SCH (07:37)
[2018-05-21] MEDS: METOPROLOL TARTRATE 50 MG TAB PO SCH (07:37)
[2018-05-21] MEDS: FUROSEMIDE 80 MG TAB PO SCH (07:37)
[2018-05-21] MEDS: amLODIPine 10 MG TAB PO SCH (07:37)
[2018-05-21] MEDS: hydrALAZINE HCL 50 MG TAB PO SCH (07:37)
[2018-05-21] MEDS: ASPIRIN 81 MG PO SCH (07:40)
--- NOTE | 2018-05-21 09:38 | PN ---
PROGRESS NOTE Sara is a 52-year-old lady with history of end-stage renal disease on hemodialysis, who was admitted to hospital with acute exacerbation of chronic diastolic heart failure. This morning, patient is feeling better. Breathing better. Leg edema had resolved. She is currently on Norvasc 10 mg daily, aspirin, Lipitor, Catapres 0.3 t.i.d., Flexeril, Lasix 80 p.o. b.i.d., hydralazine 100 t.i.d., insulin, Lopressor 50 b.i.d. along with Kayexalate. PHYSICAL EXAM: She is comfortable at rest. Heart rate is 66 beats per minute. Blood pressure is 161/79, respiratory rate is 18. Chest exam reveals she has good air entry bilaterally. Heart exam reveals first and second heart sounds and S4 is heard. Abdomen is soft. Exam of extremities did not reveal any edema. Peripheral pulses are palpable. ASSESSMENT: 1. Acute exacerbation of chronic diastolic heart failure. 2. End-stage renal disease on hemodialysis. 3. Hypertension. PLAN: Blood pressure is somewhat poorly controlled this morning, but I looked at all her blood pressures since admission. Most of them have been well controlled. I will see her back in my office in the outpatient setting and if necessary, go up on the dose of Lopressor at that time. I would also consider increasing the dose of Lasix if we have to as she still makes urine and became fluid overloaded in spite of adequate hemodialysis. MMODL / IJN: [id number] /
[2018-05-21 09:47] LABS: Anisocytosis Slight; Basophils % (A) 1 %; Eosinophils # (A) 0.1 k/uL (0-0.7); Eosinophils % (A) 2 %; HCT 23.9 % (34.0-46.0); HGB 7.9 gm/dL (11.4-16.0); Hypochromasia Moderate; Lymphocytes # (A) 0.5 k/uL (1.0-4.8); Lymphocytes % (A) 11 %; MCH 32.1 pg (25.0-35.0); MCHC 32.9 g/dL (31.0-37.0); MCV 97.4 fL (80.0-100.0); Macrocytosis Slight; Mean Platelet Volume 7.8; Monocytes # (A) 0.3 k/uL (0-1.0); Monocytes % (A) 6 %; Neutrophils # (A) 3.2 k/uL (1.3-7.7); Neutrophils % (A) 78 %; Platelet Count 132 k/uL (150-450); RBC 2.45 m/uL (3.80-5.40); RDW 18.4 % (11.5-15.5); WBC 4.1 k/uL (3.8-10.6)
[2018-05-21 10:00] LABS: Calcium 9.1 mg/dL (8.4-10.2); Potassium 4.9 mmol/L (3.5-5.1)
[2018-05-21 11:47] LABS: Glucose,Whole Blood 287 mg/dL (75-99)
[2018-05-21] MEDS: HYDROcodone/APAP 5-325MG 1 EACH TAB PO PRN (15:03)
--- NOTE | 2018-05-21 15:23 | PN ---
PROGRESS NOTE DATE OF SERVICE: 05/20/2018 SUBJECTIVE: [id number] white female, end-stage renal disease, fluid overload, severe anemia. She had one unit of blood. Her hemoglobin is mid 7s. Cardiology cleared her for discharge. Renal cleared her for discharge. GI: Soft, nontender. Hemoglobin 7.9, up from 7.5. White count is 4.1. Creatinine is 6.37, BUN 36. ASSESSMENT: 1. Severe anemia. 2. Fluid overload. 3. End-stage renal disease. 4. Hypertension. 5. Dyslipidemia. Continue current treatment. Follow up in the next 24-48 hours for discharge. MMODL / IJN: [id number] /
--- NOTE | 2018-05-21 15:42 | P.PN ---
Subjective Progress Note Date: 05/21/18 Principal diagnosis: Acute hypoxic respiratory failure, hypertensive emergency, end-stage renal disease with hemodialysis, uremic pericardial effusion, interstitial edema and pulmonary edema related to multifactorial processes as noted above, hyperkalemia related to end-stage renal disease, chronic anemia, 05/21/2018, patient seen eval examined during the rounds clinically patient has been doing well awake and alert breathing comfortably no obvious distress is present hemodynamic status stable, patient is being followed by cardiovascular services, her oxygenation is improved now on room air, labs reviewed medications reviewed from [facility] standpoint doing much better from now on O follow as needed basis 05/20/2018, patient seen eval reexamined during the rounds, patient is less short of breath she has received 2 hemodialysis [id number] third is pending, patient during evaluation is in process of getting chest X, final report is pending, continue show massive cardiomegaly, interstitial edema still present, overall findings are not much different compared to x-ray performed 05/17/2018, labs from today is pending patient remains afebrile, see and saturations 99% on 2 L Ms. Amaya is a 52-year-old female with end-stage renal disease on hemodialysis patient get hemodialysis 3 times a week with the last hemodialysis performed 2 days prior to coming into the hospital, in the last 1 week patient has been more short of breath than baseline, denies any chest pain she does have the intermittent dry nonproductive cough due to problems associated with Progressive increased shortness of breath patient was evaluated and admitted into the hospital, workup and evaluation revealed pericardial effusion and interstitial edema off note that her arrival patient had hypertensive emergency 210/110 with hypoxia on room air she had leukopenia WBC count of 2.4 with hemoglobin of 7.5 which is stable from baseline, patient suspected to have uremic pericardial effusion consultation with cardiovascular services as well as nephrology obtained, on arrival her BUN/creatinine 63/8.56, patient underwent back to back to dialysis feels slightly better, patient has been evaluated by cardiovascular services, echocardiogram on May 18 revealed ejection fraction 50-55% LA severely dilated over 40 mL per meter squire, will be hypertension is noted with moderate TR, PA P 72, moderate generalized pericardial effusion noted, early vascular service recommended continuation of dialysis and close monitoring and observation with high-dose Lasix Objective - Vital Signs Vital signs: Vital Signs Temp 98.4 F 05/21/18 07:35 Pulse 66 05/21/18 07:42 Resp 17 05/21/18 07:42 BP 167/79 05/21/18 07:35 Pulse Ox 95 05/21/18 10:14 Intake & Output 05/20/18 05/21/18 05/21/18 18:59 06:59 18:59 Intake Total 700 20 240 Output Total 1999 Balance -1300 20 240 Weight 76.4 kg Intake: IV 20 0.9 20 Oral 700 240 Output: Other 1999 Other: Voiding Method Toilet Toilet Toilet # Voids 2 - Exam GENERAL: Patient is well-developed and well-nourished. Patient is nontoxic and well- hydrated and is in mild distress. ENT: Neck is soft and supple. No significant lymphadenopathy is noted. Oropharynx is clear. Moist mucous membranes. Neck has full range of motion without eliciting any pain. EYES: The sclera were anicteric and conjunctiva were pink and moist. Extraocular movements were intact and pupils were equal round and reactive to light. Eyelids were unremarkable. PULMONARY: Patient has diffuse expiratory wheezing. CARDIOVASCULAR: Patient is tachycardic ABDOMEN: Soft and nontender with normal bowel sounds. No palpable organomegaly was noted. There is no palpable pulsatile mass. SKIN: Skin is clear with no lesions or rashes and otherwise unremarkable. NEUROLOGIC: Patient is alert and oriented x3. Cranial nerves II through XII are grossly intact. Motor and sensory are also intact. Normal speech, volume and content. Symmetrical smile. MUSCULOSKELETAL: Normal extremities with adequate strength and full range of motion. No lower extremity swelling or edema. No calf tenderness. LYMPHATICS: No significant lymphadenopathy is noted PSYCHIATRIC: Normal psychiatric evaluation. - Labs CBC & Chem 7: 05/21/18 08:49 05/21/18 08:49 Labs: Abnormal Lab Results - Last 24 Hours (Table) 05/20/18 05/20/18 05/21/18 Range/Units 17:01 20:35 05:52 RBC (3.80-5.40) m/uL Hgb (11.4-16.0) gm/dL Hct (34.0-46.0) % RDW (11.5-15.5) % Plt Count (150-450) k/uL Lymphocytes # (1.0-4.8) k/uL Sodium (137-145) mmol/L Chloride (98-107) mmol/L BUN (7-17) mg/dL Creatinine (0.52-1.04) mg/dL Glucose (74-99) mg/dL POC Glucose (mg/dL) 127 H 168 H 227 H (75-99) mg/dL 05/21/18 05/21/18 05/21/18 Range/Units 08:49 08:49 11:45 RBC 2.45 L (3.80-5.40) m/uL Hgb 7.9 L (11.4-16.0) gm/dL Hct 23.9 L (34.0-46.0) % RDW 18.4 H (11.5-15.5) % Plt Count 132 L (150-450) k/uL Lymphocytes # 0.5 L (1.0-4.8) k/uL Sodium 134 L (137-145) mmol/L Chloride 97 L (98-107) mmol/L BUN 36 H (7-17) mg/dL Creatinine 6.37 H (0.52-1.04) mg/dL Glucose 278 H (74-99) mg/dL POC Glucose (mg/dL) 287 H (75-99) mg/dL Assessment and Plan Assessment: Shortness of breath multifactorial related to pericardial effusion and pulmonary edema related to diastolic heart failure, continued to improve Uncontrolled hypertension related to hypertensive emergency, now back to baseline End-stage renal disease on hemodialysis, scheduled to get third dialysis today will defer blood transfusion with that too renal services Pericardial effusion without any temponade physiology Anemia of chronic disease will defer renal services for blood transfusion End-stage renal disease stage V agree with [id number] multiple dialysis and diuresis Bilateral interstitial edema likely related to heart failure will hold on antibiotics and monitor clinical course closely, repeat chest x-ray tomorrow Plan: Agree with hemodialysis [id number] as planned We will defer blood transfusion to renal service with hemodialysis Continue diuresis Patient has been doing well from respiratory standpoint will recommend follow- up with 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
--- NOTE | 2018-05-21 17:14 | PN ---
PROGRESS NOTE Patient is seen for followup for end-stage renal disease. Patient was admitted with weakness. She was found to be anemic with a hemoglobin of about 6.6. Patient also had fluid overload and severe hyperkalemia. She has been transfused one unit packed RBCs. Patient has had 3 consecutive treatments of hemodialysis. Her electrolytes have improved significantly and her fluid status has improved as well. PHYSICAL EXAMINATION: On examination today, blood pressure is 167/79, heart rate 66 per minute. She is afebrile. EXAMINATION OF THE HEART: S1, S2. EXAMINATION OF LUNGS: Bilateral breath sounds are heard. ABDOMEN: Soft, non-tender. Examination of lower extremities shows no evidence of edema. QUALITY ASSURANCE INTERN exam is grossly intact. LABS: Hemoglobin 7.9, sodium 134, potassium 4.9, BUN 36, serum creatinine 6.37. ASSESSMENT: 1. End-stage renal disease, on hemodialysis on a Thursday, , Thursday schedule. 2. Fluid overload, currently improved. 3. Hypertension, mainly volume-sensitive, improved with improving volume status. 4. Hyperkalemia on initial admission, currently improved. 5. Anemia which is chronic, and patient has been evaluated by Hematology as outpatient. She has also had bone marrow biopsies done. Results of these procedures are not known. However, patient states that she was told her bone marrow biopsy was normal. She should follow with Hematology post discharge. There is no evidence of bleeding noted. PLAN: Hemodialysis in a.m. if patient is still in the hospital. Otherwise, she can be discharged and follow up as outpatient for hemodialysis tomorrow. MMODL / IJN: [id number] /
== END 2018-05-21 15:42 | disposition home or self-care (01) | DRG 304 ==
LOC: EC 18:23 → 3SCARD 20:57
PROVIDERS: ADMIT Family Medicine; ATTEND Family Medicine
PROC: 5A1D70Z Performance of Urinary Filtration, Intermittent, Less than 6 Hours Per Day (ICD-10-PCS; 2018-05-18)
PROC: 30230N1 Transfusion of Nonautologous Red Blood Cells into Peripheral Vein, Open Approach (ICD-10-PCS; principal; 2018-05-19)
PROC: 5A1D70Z Performance of Urinary Filtration, Intermittent, Less than 6 Hours Per Day (ICD-10-PCS; 2018-05-19)
PROC: 5A1D70Z Performance of Urinary Filtration, Intermittent, Less than 6 Hours Per Day (ICD-10-PCS; 2018-05-20)
DX: I16.1 Hypertensive emergency (principal); I50.33 Acute on chronic diastolic (congestive) heart failure; N18.6 End stage renal disease; J96.01 Acute respiratory failure with hypoxia; K86.1 Other chronic pancreatitis; D61.818 Other pancytopenia; I31.3 Pericardial effusion (noninflammatory); I13.2 Hypertensive heart and chronic kidney disease with heart failure and with stage 5 chronic kidney disease, or end stage renal disease; Z76.82 Awaiting organ transplant status; E11.22 Type 2 diabetes mellitus with diabetic chronic kidney disease; E83.9 Disorder of mineral metabolism, unspecified; E11.65 Type 2 diabetes mellitus with hyperglycemia; I08.1 Rheumatic disorders of both mitral and tricuspid valves; I27.20 Pulmonary hypertension, unspecified; E87.5 Hyperkalemia; K74.60 Unspecified cirrhosis of liver; D63.8 Anemia in other chronic diseases classified elsewhere; E78.1 Pure hyperglyceridemia; I25.10 Atherosclerotic heart disease of native coronary artery without angina pectoris; E03.9 Hypothyroidism, unspecified; E78.5 Hyperlipidemia, unspecified; K76.9 Liver disease, unspecified; M54.5 Low back pain; H26.9 Unspecified cataract; I45.10 Unspecified right bundle-branch block; Z99.2 Dependence on renal dialysis; Z79.4 Long term (current) use of insulin; Z79.899 Other long term (current) drug therapy; Z86.010 Personal history of colon polyps; Z86.69 Personal history of other diseases of the nervous system and sense organs; Z87.440 Personal history of urinary (tract) infections; Z87.01 Personal history of pneumonia (recurrent); Z88.1 Allergy status to other antibiotic agents; Z91.041 Radiographic dye allergy status; Z83.3 Family history of diabetes mellitus; Z82.49 Family history of ischemic heart disease and other diseases of the circulatory system; Z80.0 Family history of malignant neoplasm of digestive organs; Z81.2 Family history of tobacco abuse and dependence; Z83.49 Family history of other endocrine, nutritional and metabolic diseases
CPT/HCPCS: 36415; 71045; 71046; 80048; 80053; 82550; 82553; 83880; 84484; 85025; 85610; 85730; 86704; 86706; 86850; 86900; 86901; 86920; 87340; 90935; 93005; 93306; 96365; 96366; 96372; 96375; 99285

== ENCOUNTER 2018-07-12 21:17 | Inpatient (IN) | payer OTHER ==
[2018-07-12] MEDS ORDERED: NITROGLYCERIN OINT 1 INCH/GM PACKET TOPICAL STA (22:49)
--- NOTE | 2018-07-12 22:59 | ED ---
SOB HPI - General Chief Complaint: Shortness of Breath Stated Complaint: SOB, leg pain, chest pain Time Seen by Provider: 07/12/18 22:10 Source: patient Mode of arrival: ambulatory Limitations: no limitations - History of Present Illness Initial Comments: This patient is a 53-year-old woman with history of end-stage renal disease on hemodialysis, who complains of approximately a day of worsening shortness of breath. She states that this feels similar to when she has dialysis and they do not take enough fluid off. She states the shortness of breath is worse if she attempts to lie flat. She denies fever or chills, productive cough, chest pain. She has not noted any pain or swelling of the legs. MD Complaint: shortness of breath Onset/Timin -: days(s) Severity: moderate Consistency: constant Improves With: oxygen Worsens With: lying flat Known History Of: congestive heart failure Associated Symptoms: denies other symptoms Treatments Prior to Arrival: oxygen - Related Data Home Medications Medication Instructions Recorded Confirmed Atorvastatin [Lipitor] 40 mg PO HS 09/14/15 07/12/18 Cyclobenzaprine [Flexeril] 5 mg PO HS 09/14/15 07/12/18 Insulin Glargine [Lantus] 80 unit SQ HS 04/18/16 07/12/18 cloNIDine HCL 0.3 mg PO TID 12/16/16 07/12/18 rOPINIRole HCL [Requip] 1 mg PO TID 02/07/17 07/12/18 Sevelamer [Renvela] 800 mg PO DAILY PRN 08/21/17 07/12/18 Lidocaine-Prilocaine Cream [Emla 1 applic TOPICAL TUTHSA PRN 09/21/17 07/12/18 Cream 2.5%/2.5%] amLODIPine [Norvasc] 10 mg PO DAILY 10/06/17 07/12/18 Furosemide [Lasix] 80 mg PO BID 10/22/17 07/12/18 Metoprolol Tartrate [Lopressor] 50 mg PO BID 10/22/17 07/12/18 Prochlorperazine [Compazine] 5 mg PO BID PRN 10/26/17 07/12/18 Diazepam [Valium] 5 mg PO BID 02/10/18 07/12/18 Lactulose 10 gm PO TID PRN 03/13/18 07/12/18 Sevelamer [Renvela] 2,400 mg PO AC-TID 03/13/18 07/12/18 Gabapentin [Neurontin] 100 mg PO TID 05/17/18 07/12/18 INSULIN LISPRO (humaLOG) [humaLOG] See Protocol SQ DIRECTED 05/17/18 07/12/18 Promethazine 6.25MG/5Ml [Phenergan 6.25 mg PO Q6HR PRN 05/17/18 07/12/18 Syrup] Erythromycin Ophth Oint [Romycin 1 applic BOTH EYES BID 07/12/18 07/12/18 Ophth Oint] INSULIN LISPRO (humaLOG) [humaLOG] 18 unit SQ QID 07/12/18 07/12/18 Sodium Polystyrene Sulfonate 30 gm PO SUMOWEFR 07/12/18 07/12/18 [Kayexalate] Previous Rx's Medication Instructions Recorded hydrALAZINE HCL [Apresoline] 100 mg PO TID #180 tab 06/10/16 HYDROcodone/APAP 5-325MG [[place] 1 tab PO Q8HR PRN #45 tab 09/24/17 5-325] Allergies Allergy/AdvReac Type Severity Reaction Status Date / Time ciprofloxacin [From Cipro] AdvReac AFFECTED Verified 07/12/18 22:08 EYESIGHT ciprofloxacin HCl AdvReac AFFECTED Verified 07/12/18 22:08 [From Cipro] EYESIGHT Iodinated Contrast- Oral and AdvReac RENAL Verified 07/12/18 22:08 IV Dye FAILURE Review of Systems ROS Statement: Those systems with pertinent positive or pertinent negative responses have been documented in the HPI. ROS Other: All systems not noted in ROS Statement are negative. Constitutional: Denies: fever, chills, weakness Respiratory: Reports: dyspnea. Denies: cough, wheezes, hemoptysis Cardiovascular: Reports: orthopnea. Denies: chest pain, palpitations, dyspnea on exertion, edema, syncope Gastrointestinal: Denies: abdominal pain, vomiting, diarrhea Musculoskeletal: Denies: back pain Skin: Denies: rash Neurological: Denies: headache, weakness, numbness Past Medical History Past Medical History: Blood Disorder, Heart Failure, Diabetes Mellitus, Dialysis , Hyperlipidemia, Hypertension, Liver Disease, Pneumonia, Renal Disease Additional Past Medical History / Comment(s): Bilateral cataracts, recently diagnosed with bilateral retinal hemorrhages, hypertriglyceridemia-induced acute pancreatitis, THEN necrotizing pancreatitis. hemodialysis for acute kidney injury 2 months in 2009 after pancreatic OR, 11/2015 diagnosed w/ chronic kidney disease-hemodialysis -last hemodialysis 05/15/18, IDDM type II, past DKA, pt states she has dry heaves day after dialysis, UTI, chronic anemia, frequent body cramping, occasional low back pain, carter's palsy x2, past L leg fx, possible liver disease-recent liver bx-results unknown per pt. History of Any Multi-Drug Resistant Organisms: None Reported Past Surgical History: Orthopedic Surgery, Uterine Ablation Additional Past Surgical History / Comment(s): Recent liver biopsy done at [place] but pt states they have never contacted her with the results, 08/26/17 colonoscopy with polypectomy/bx, pancreatic resection at [facility] 2009, bone marrow biopsies X2-last one 05/19/16,. dialysis chest port x 2 with removals , Left arm shunt placement for dialysis - December 2015 and a revision done with shunt. Past Anesthesia/Blood Transfusion Reactions: No Reported Reaction Additional Past Anesthesia/Blood Transfusion Reaction / Comment(s): Pt has received blood transfusions without reaction. Past Psychological History: No Psychological Hx Reported Smoking Status: Never smoker - Past Family History Brother(s) Family Medical History: No Reported History Mother Family Medical History: Cancer, Diabetes Mellitus, Hypertension Additional Family Medical History / Comment(s): Mother of throat cancer at the age of 63 yrs. She was a smoker. Father Family Medical History: Coronary Artery Disease (CAD), Hyperlipidemia, Hypertension Additional Family Medical History / Comment(s): Father is 70 yrs old. General Exam Limitations: no limitations General appearance: alert, in distress Head exam: Present: atraumatic, normocephalic Eye exam: Present: normal appearance. Absent: PERRL, EOMI Respiratory exam: Present: respiratory distress, rales (Bilateral bases). Absent: wheezes, rhonchi, stridor, accessory muscle use, decreased breath sounds , prolonged expiratory Cardiovascular Exam: Present: regular rate, normal rhythm, gallop. Absent: systolic murmur, diastolic murmur, rubs GI/Abdominal exam: Present: soft. Absent: distended, tenderness, guarding, rebound, rigid, mass Extremities exam: Present: normal inspection, normal capillary refill. Absent: pedal edema, calf tenderness Back exam: Present: normal inspection. Absent: CVA tenderness (R), CVA tenderness (L) Neurological exam: Present: alert Skin exam: Present: warm, dry, intact, normal color. Absent: rash Course Vital Signs 07/12/18 07/12/18 07/12/18 21:24 21:33 21:40 Temperature 97.7 F Pulse Rate 96 87 Respiratory 36 H 19 Rate Blood Pressure 206/81 206/91 O2 Sat by Pulse 73 L 77 L 86 L Oximetry 07/12/18 07/12/18 07/12/18 21:50 22:00 22:10 Temperature Pulse Rate 83 81 Respiratory 33 H 29 H 25 H Rate Blood Pressure 188/80 188/80 183/86 O2 Sat by Pulse 96 98 98 Oximetry 07/12/18 07/12/18 07/12/18 22:20 22:30 22:40 Temperature Pulse Rate 83 82 83 Respiratory 25 H 28 H 32 H Rate Blood Pressure 183/86 183/86 183/82 O2 Sat by Pulse 95 96 94 L Oximetry 07/12/18 07/13/18 07/13/18 22:50 00:14 00:53 Temperature Pulse Rate 86 84 87 Respiratory 18 18 18 Rate Blood Pressure 183/82 194/89 187/88 O2 Sat by Pulse 92 L 94 L 98 Oximetry 07/13/18 01:07 Temperature Pulse Rate Respiratory Rate Blood Pressure O2 Sat by Pulse 97 Oximetry - Reevaluation(s) Reevaluation #1: 07/13/18 01:26 Patient's 53-year-old woman, dialysis patient, presenting with shortness of breath and volume overload by the exam. Patient does have chest x-ray consistent with CHF/volume overload as well as elevated BNP. Case discussed with Dr. David Bragg who will admit and with Dr. Orozco, arranging dialysis. Medical Decision Making - Lab Data Result diagrams: 07/12/18 21:47 07/12/18 21:47 Lab Results 07/12/18 07/12/18 07/12/18 Range/Units 21:47 21:47 21:47 WBC 3.4 L (3.8-10.6) k/uL RBC 2.69 L (3.80-5.40) m/uL Hgb 8.7 L (11.4-16.0) gm/dL Hct 25.4 L (34.0-46.0) % MCV 94.5 (80.0-100.0) fL MCH 32.2 (25.0-35.0) pg MCHC 34.1 (31.0-37.0) g/dL RDW 18.4 H (11.5-15.5) % Plt Count 82 L (150-450) k/uL Neutrophils % 86 % Lymphocytes % 7 % Monocytes % 4 % Eosinophils % 2 % Basophils % 0 % Neutrophils # 2.9 (1.3-7.7) k/uL Lymphocytes # 0.2 L (1.0-4.8) k/uL Monocytes # 0.1 (0-1.0) k/uL Eosinophils # 0.1 (0-0.7) k/uL Basophils # 0.0 (0-0.2) k/uL Manual Slide Review Performed Polychromasia Present Poikilocytosis Slight Anisocytosis Slight Macrocytosis Slight Target Cells Present PT 9.7 (9.0-12.0) sec INR 0.9 (<1.2) APTT 22.7 (22.0-30.0) sec D-Dimer 0.75 H (<0.60) mg/L FEU Sodium 141 (137-145) mmol/L Potassium 5.7 H (3.5-5.1) mmol/L Chloride 99 (98-107) mmol/L Carbon Dioxide 27 (22-30) mmol/L Anion Gap 15 mmol/L BUN 60 H (7-17) mg/dL Creatinine 10.08 H* (0.52-1.04) mg/dL Est GFR (CKD-EPI)AfAm 5 (>60 ml/min/1.73 sqM) Est GFR (CKD-EPI)NonAf 4 (>60 ml/min/1.73 sqM) Glucose 75 (74-99) mg/dL Calcium 9.8 (8.4-10.2) mg/dL Magnesium 1.7 (1.6-2.3) mg/dL Total Bilirubin 0.9 (0.2-1.3) mg/dL AST 32 (14-36) U/L ALT 37 (9-52) U/L Alkaline Phosphatase 77 (38-126) U/L Troponin I (0.000-0.034) ng/mL NT-Pro-B Natriuret Pep pg/mL Total Protein 7.7 (6.3-8.2) g/dL Albumin 4.8 (3.5-5.0) g/dL 07/12/18 07/12/18 Range/Units 21:47 21:47 WBC (3.8-10.6) k/uL RBC (3.80-5.40) m/uL Hgb (11.4-16.0) gm/dL Hct (34.0-46.0) % MCV (80.0-100.0) fL MCH (25.0-35.0) pg MCHC (31.0-37.0) g/dL RDW (11.5-15.5) % Plt Count (150-450) k/uL Neutrophils % % Lymphocytes % % Monocytes % % Eosinophils % % Basophils % % Neutrophils # (1.3-7.7) k/uL Lymphocytes # (1.0-4.8) k/uL Monocytes # (0-1.0) k/uL Eosinophils # (0-0.7) k/uL Basophils # (0-0.2) k/uL Manual Slide Review Polychromasia Poikilocytosis Anisocytosis Macrocytosis Target Cells PT (9.0-12.0) sec INR (<1.2) APTT (22.0-30.0) sec D-Dimer (<0.60) mg/L FEU Sodium (137-145) mmol/L Potassium (3.5-5.1) mmol/L Chloride (98-107) mmol/L Carbon Dioxide (22-30) mmol/L Anion Gap mmol/L BUN (7-17) mg/dL Creatinine (0.52-1.04) mg/dL Est GFR (CKD-EPI)AfAm (>60 ml/min/1.73 sqM) Est GFR (CKD-EPI)NonAf (>60 ml/min/1.73 sqM) Glucose (74-99) mg/dL Calcium (8.4-10.2) mg/dL Magnesium (1.6-2.3) mg/dL Total Bilirubin (0.2-1.3) mg/dL AST (14-36) U/L ALT (9-52) U/L Alkaline Phosphatase (38-126) U/L Troponin I 0.020 (0.000-0.034) ng/mL NT-Pro-B Natriuret Pep 60207 pg/mL Total Protein (6.3-8.2) g/dL Albumin (3.5-5.0) g/dL - EKG Data EKG shows normal: sinus rhythm, axis (Normal), intervals (CT interval 160 ms, QRS duration 92 ms, both normal.), QRS complexes (Incomplete right bundle branch block pattern), ST-T waves (Lateral T inversions concerning for possible ischemia) Rate: normal (Rate 85 bpm) Interpretation: other (Prolonged QTc at 464 ms.) Disposition Clinical Impression: Fluid overload, ESRD (end stage renal disease) on dialysis Disposition: ADMITTED IP TO THIS [facility] Condition: Serious Is patient prescribed a controlled substance at d/c from ED?: No Referrals: David Bragg MD [Primary Care Provider] - 1-2 days
[2018-07-12 23:02] LABS: Albumin 4.8 g/dL (3.5-5.0); Anisocytosis Slight; Basophils % (A) 0 %; Calcium 9.8 mg/dL (8.4-10.2); Eosinophils # (A) 0.1 k/uL (0-0.7); Eosinophils % (A) 2 %; HCT 25.4 % (34.0-46.0); HGB 8.7 gm/dL (11.4-16.0); Lymphocytes # (A) 0.2 k/uL (1.0-4.8); Lymphocytes % (A) 7 %; MCH 32.2 pg (25.0-35.0); MCHC 34.1 g/dL (31.0-37.0); MCV 94.5 fL (80.0-100.0); Macrocytosis Slight; Magnesium 1.7 mg/dL (1.6-2.3); Mean Platelet Volume 7.4; Monocytes # (A) 0.1 k/uL (0-1.0); Monocytes % (A) 4 %; Neutrophils # (A) 2.9 k/uL (1.3-7.7); Neutrophils % (A) 86 %; Poikilocytosis Slight; Potassium 5.7 mmol/L (3.5-5.1); RBC 2.69 m/uL (3.80-5.40); RDW 18.4 % (11.5-15.5); Total Bilirubin 0.9 mg/dL (0.2-1.3); Total Protein 7.7 g/dL (6.3-8.2); WBC 3.4 k/uL (3.8-10.6)
[2018-07-12 23:15] LABS: INR 0.9 (<1.2); Partial Thromboplastin Time 22.7 sec (22.0-30.0); Prothrombin Time 9.7 sec (9.0-12.0)
[2018-07-12 23:22] LABS: D-Dimer 0.75 mg/L FEU (<0.60)
[2018-07-12 23:36] LABS: Platelet Count 82 k/uL (150-450); Polychromasia Present; Target Cells Present
--- NOTE | 2018-07-12 23:41 | XR ---
EXAM: XR Chest, 2 Views CLINICAL HISTORY: ITS.REASON XR Reason: difficulty breathing TECHNIQUE: Frontal and lateral views of the chest. COMPARISON: Chest x-ray dated 05/17/2018. FINDINGS: Lungs: Interval development of patchy interstitial opacities throughout both mid and lower lungs. This is more prominent on the left. Pleural space: Questionable small left pleural effusion. No pneumothorax. Heart: Reidentified severe cardiomegaly. Mediastinum: Unremarkable. Bones/joints: Unremarkable. IMPRESSION: 1. Reidentified severe cardiomegaly. 2. Interval development of patchy interstitial opacities throughout both mid and lower lungs. This is more prominent on the left. This may represent pulmonary congestion/edema or pneumonia. 3. Questionable small left pleural effusion.
[2018-07-13] MEDS ORDERED: HYDROcodone/APAP 5-325MG 1 EACH TAB PO STA (00:49)
--- NOTE | 2018-07-13 01:32 | US ---
EXAM: US Duplex Left Lower Extremity Veins CLINICAL HISTORY: ITS.REASON US Reason: Pain TECHNIQUE: Real-time duplex ultrasound scan of the left lower extremity veins integrating B-mode two-dimensional vascular structure, Doppler spectral analysis, color flow Doppler imaging and compression. COMPARISON: No relevant prior studies available. FINDINGS: Deep veins: Unremarkable. No DVT in the visualized common femoral, femoral, proximal deep femoral or popliteal veins. The veins demonstrate normal color flow, are normally compressible, with normal phasic flow and/or augmentation response. Superficial veins: Unremarkable. No thrombus in the visualized great saphenous vein. Soft tissues: No acute findings. No popliteal cyst. IMPRESSION: Normal left lower extremity duplex venous ultrasound.
[2018-07-13] MEDS ORDERED: NALOXONE 0.4 MG/ML 1 ML VIAL IV PRN (01:50)
[2018-07-13] MEDS ORDERED: ACETAMINOPHEN TAB 325 MG TAB PO PRN (01:50)
[2018-07-13] MEDS ORDERED: LACTULOSE 20 GM/30 ML CUP PO PRN (01:53)
[2018-07-13] MEDS ORDERED: SEVELAMER 800 MG TAB PO PRN (01:53)
[2018-07-13] MEDS ORDERED: LIDOCAINE-PRILOCAINE 2.5-2.5% CREAM 5 GM TUBE TOPICAL PRN (06:00)
[2018-07-13] MEDS: HYDROcodone/APAP 5-325MG 1 EACH TAB PO PRN ×2 (06:07→21:35)
[2018-07-13 06:10] LABS: Glucose,Whole Blood 63 mg/dL (75-99)
[2018-07-13 06:40] LABS: Glucose,Whole Blood 120 mg/dL (75-99)
[2018-07-13] MEDS: SEVELAMER 800 MG TAB PO SCH ×3 (06:43→17:42)
[2018-07-13] MEDS: METOPROLOL TARTRATE 50 MG TAB PO SCH ×2 (08:58→21:29)
[2018-07-13] MEDS: cloNIDine HCL 0.1 MG TAB PO SCH ×3 (08:58→21:29)
[2018-07-13] MEDS: GABAPENTIN 100 MG CAP PO SCH ×3 (08:58→21:28)
[2018-07-13] MEDS: DIAZEPAM 5 MG TAB PO SCH ×2 (08:58→21:29)
[2018-07-13] MEDS: amLODIPine 10 MG TAB PO SCH (08:59)
[2018-07-13] MEDS: hydrALAZINE HCL 50 MG TAB PO SCH ×3 (08:59→21:28)
[2018-07-13] MEDS: INSULIN ASPART (NovoLOG) 100 UNIT/ML VIAL SQ SCH ×4 (08:59→21:30)
[2018-07-13] MEDS: FUROSEMIDE 80 MG TAB PO SCH ×2 (08:59→21:29)
[2018-07-13 11:44] LABS: Glucose,Whole Blood 145 mg/dL (75-99)
[2018-07-13] MEDS ORDERED: DARBEPOETIN ALFA 60 MCG/0.3 ML SYRINGE SQ SCH (12:00)
--- NOTE | 2018-07-13 14:56 | CONS ---
CONSULTATION REASON FOR CONSULT: End-stage renal disease. HISTORY OF PRESENT ILLNESS: Patient is a 53-year-old female with end-stage renal disease, on hemodialysis on a Thursday, , Thursday schedule at the [facility]. She was admitted to the hospital with complaints of shortness of breath. Patient feels that she may not have had enough fluid taken off during her last few treatments. She denies any fevers or chills. No significant chest pain. Shortness of breath started the next day after dialysis on Thursday and it progressively worsened. The patient was dialyzed early this morning around 3 am and she had about 3 L of fluid taken off. Currently, patient is complaining of cramps in her lower extremities. PAST MEDICAL HISTORY: End-stage renal disease, type 2 diabetes, hypertension, anemia of chronic disease, previous history of pancreatitis secondary to hypertriglyceridemia, history of UTI, history of Hoffman's palsy, possible underlying liver disease, currently being followed by GI, status post liver biopsy done at [facility]. PAST SURGICAL HISTORY: Colonoscopy, polypectomy, cataract surgery, bone marrow biopsy, liver biopsies, left arm AV fistula with multiple interventions in the patient. SOCIAL HISTORY: Negative for smoking, drug abuse or alcohol abuse. MEDICATIONS: At home prior to admission included Lipitor, Flexeril, insulin, Requip, clonidine, Renvela, Norvasc, Lasix, Lopressor, Compazine, Valium, lactulose, Neurontin, Kayexalate, insulin. ALLERGIES: Include CIPRO and intolerant to NORCO or VALIUM. PHYSICAL EXAMINATION: Patient is currently comfortable, awake, alert, oriented x3. She is not in any acute distress. Blood pressure was 150/69, heart rate 88 per minute. She is afebrile. Examination of the heart, S1, S2. Examination of the lungs, bilateral breath sounds are heard. Abdomen is soft, nontender. Exam of the lower extremities shows edema 1+ bilaterally. GUEST RELATIONS REPRESENTATIVE exam is grossly intact. LABS: Show sodium 141, potassium 5.7, chloride 99, BUN 60, creatinine 10.08, hemoglobin 8.7 g/dL. ASSESSMENT: 1. End-stage disease on hemodialysis on a Thursday, , Thursday schedule. Will dialyze the patient again tomorrow, she had a treatment early this morning. 2. Fluid overload, somewhat improved. Patient still is above her dry weight. We will continue to challenge her and plan for another 3 L of ultrafiltration tomorrow. 3. Hyperkalemia. Expect improvement post dialysis today. 4. Anemia of chronic disease. No active bleeding noted. We will maintain the patient on Aranesp. 5. CKD mineral bone disorder. PLAN: Maintain patient on Aranesp. Repeat hemodialysis in a.m. I will also start the patient on levocarnitine to help with the cramps. She is advised that she should agree for extra treatment if advised at the dialysis unit as outpatient for fluid overload. MMODL / IJN: [id number] /
[2018-07-13 16:43] LABS: Glucose,Whole Blood 232 mg/dL (75-99)
[2018-07-13 18:34] LABS: Hepatitis B Surface AB- Quant 3.5 mIU/mL
[2018-07-13 21:22] LABS: Glucose,Whole Blood 198 mg/dL (75-99)
[2018-07-13] MEDS: INSULIN DETEMIR (LEVEMIR) 100 UNIT/ML SYR SQ SCH (21:29)
[2018-07-13] MEDS: ATORVASTATIN 40 MG TAB PO SCH (21:29)
--- NOTE | 2018-07-14 00:28 | HP ---
HISTORY AND PHYSICAL CHIEF COMPLAINT: 53-year-old white female shortness of breath, leg pain, and chest pain. She says they did not take enough fluid off her. She came to the hospital, hypertension acceleration and fluid overload. Ultrasound of the leg was negative for DVT. History of congestive heart failure, hypertension, insulin-dependent diabetes mellitus. MEDICINES: See list. REVIEW OF SYSTEMS: Fourteen point review of systems negative except for mentioned in the HPI. PAST MEDICAL HISTORY: Diabetes mellitus, end-stage renal disease, dyslipidemia, heart failure, blood disorder, liver disease, pneumonia, renal disease, hypertension, recent liver biopsy, left arm shunt, bilateral cataracts, heart failure, diabetes mellitus, dialysis. FAMILY HISTORY: Brother negative. Mother diabetes mellitus, hypertension, cancer. Father with coronary artery disease, hypertension and dyslipidemia. PHYSICAL EXAM: Vital signs stable. Afebrile. Cardiovascular: S1, S2. LUNGS: Show rales at the bases. ABDOMEN: Soft, nontender. Hematology 2 to 3+ edema. NEUROLOGIC: Alert and oriented x3. Psych: Fair mood and affect. Blood pressure 180s over 80, pulse is in 80s, respiratory 25-30. Cardiovascular: S1-S2. Lungs: Rales at the bases. HEMATOLOGY: Negative Homans. Psych: Fair mood and affect. Neurologic: Alert and oriented x3. LABORATORY DATA: White count is 3.4, hemoglobin 8.7, BUN 16, creatinine 10. ASSESSMENT: 1. Fluid overload. 2. End-stage renal disease. 3. Abnormal EKG. Get Cardiology consult. Renal consult. Take the fluid off. Please see further orders. MMODL / IJN: [id number] /
[2018-07-14] MEDS: SEVELAMER 800 MG TAB PO SCH ×3 (06:32→18:49)
[2018-07-14 06:38] LABS: Anisocytosis Slight; Basophils % (A) 0 %; Eosinophils # (A) 0.1 k/uL (0-0.7); Eosinophils % (A) 2 %; HCT 23.8 % (34.0-46.0); HGB 7.7 gm/dL (11.4-16.0); Hypochromasia Slight; Lymphocytes # (A) 0.4 k/uL (1.0-4.8); Lymphocytes % (A) 14 %; MCH 31.6 pg (25.0-35.0); MCHC 32.3 g/dL (31.0-37.0); Macrocytosis Slight; Mean Platelet Volume 7.6; Monocytes # (A) 0.1 k/uL (0-1.0); Monocytes % (A) 5 %; Neutrophils # (A) 2.2 k/uL (1.3-7.7); Neutrophils % (A) 78 %; RBC 2.43 m/uL (3.80-5.40); RDW 18.4 % (11.5-15.5); WBC 2.8 k/uL (3.8-10.6)
[2018-07-14 06:44] LABS: Platelet Count 97 k/uL (150-450)
[2018-07-14 06:46] LABS: Albumin 4.2 g/dL (3.5-5.0); Calcium 9.1 mg/dL (8.4-10.2); Total Bilirubin 0.9 mg/dL (0.2-1.3); Total Protein 6.6 g/dL (6.3-8.2)
[2018-07-14 06:53] LABS: Glucose,Whole Blood 94 mg/dL (75-99)
[2018-07-14 06:56] LABS: Potassium 6.1 mmol/L (3.5-5.1)
[2018-07-14] MEDS: DIAZEPAM 5 MG TAB PO SCH ×2 (08:54→21:33)
[2018-07-14] MEDS: amLODIPine 10 MG TAB PO SCH (08:54)
[2018-07-14] MEDS: GABAPENTIN 100 MG CAP PO SCH ×3 (08:54→21:33)
[2018-07-14] MEDS: cloNIDine HCL 0.1 MG TAB PO SCH ×3 (08:55→21:33)
[2018-07-14] MEDS: METOPROLOL TARTRATE 50 MG TAB PO SCH ×2 (08:55→21:33)
[2018-07-14] MEDS: hydrALAZINE HCL 50 MG TAB PO SCH ×3 (08:55→21:33)
[2018-07-14] MEDS: FUROSEMIDE 80 MG TAB PO SCH ×2 (08:55→21:33)
[2018-07-14] MEDS: INSULIN ASPART (NovoLOG) 100 UNIT/ML VIAL SQ SCH ×4 (09:00→21:33)
[2018-07-14] MEDS: PROCHLORPERAZINE 5 MG TAB PO PRN (11:16)
[2018-07-14 11:32] LABS: Glucose,Whole Blood 174 mg/dL (75-99)
--- NOTE | 2018-07-14 13:52 | P.CRDCN ---
History of Present Illness Consult date: 07/14/18 History of present illness: This is a 53-year-old female with history of chronic kidney disease on dialysis , diabetes, hypertension, hyperlipidemia and chronic anemia who is admitted to the hospital with increasing shortness of breath. Patient is being dialyzed at [facility] and apparently she and not enough fluid was taken out during last dialysis. Her proBNP is elevated. Patient also had hyperkalemia on admission. Patient had dialysis early this morning and patient is feeling better. She did complain of some vague chest pain. She claims that she gets his chest pain and cramps from time to time and usually Mamou helps the pain. EKG showed sinus rhythm with the right bundle-branch block and nonspecific T-wave changes. Patient had an echocardiogram done in May which showed normal LV function. Her symptoms appear to be atypical. On her troponin values within normal limits. At the time of my examination patient is very comfortable. No cardiac evaluation at this time. Follow-up as an outpatient Review of Systems As per the chart Past Medical History Past Medical History: Blood Disorder, Heart Failure, Diabetes Mellitus, Dialysis , Hyperlipidemia, Hypertension, Liver Disease, Pneumonia, Renal Disease Additional Past Medical History / Comment(s): Bilateral cataracts, recently diagnosed with bilateral retinal hemorrhages, hypertriglyceridemia-induced acute pancreatitis, THEN necrotizing pancreatitis. hemodialysis for acute kidney injury 2 months in 2009 after pancreatic OR, 11/2015 diagnosed w/ chronic kidney disease-hemodialysis //-last hemodialysis 07-10-18, IDDM type II, past DKA, pt states she has dry heaves day after dialysis, UTI, chronic anemia, frequent body cramping, occasional low back pain, carter's palsy x2, past L leg fx, possible liver disease-recent liver bx-results unknown per pt. History of Any Multi-Drug Resistant Organisms: None Reported Past Surgical History: Orthopedic Surgery, Uterine Ablation Additional Past Surgical History / Comment(s): Recent liver biopsy done at [facility] but pt states they have never contacted her with the results, 08/26/17 colonoscopy with polypectomy/bx, pancreatic resection at [facility] 2009, bone marrow biopsies X2-last one 05/19/16,. dialysis chest port x 2 with removals , Left arm shunt placement for dialysis - December 2015 and a revision done with shunt. Past Anesthesia/Blood Transfusion Reactions: No Reported Reaction Additional Past Anesthesia/Blood Transfusion Reaction / Comment(s): Pt has received blood transfusions without reaction. Past Psychological History: No Psychological Hx Reported Additional Psychological History / Comment(s): Pt resides at her mother in laws home at this time with spouse. They are her mother in laws caretakers. She is independent. She uses no assistive device. She drives. Smoking Status: Never smoker Past Alcohol Use History: None Reported Additional Past Alcohol Use History / Comment(s): Patient is a lifelong nonsmoker. Past Drug Use History: None Reported - Past Family History Brother(s) Family Medical History: No Reported History Mother Family Medical History: Cancer, Diabetes Mellitus, Hypertension Additional Family Medical History / Comment(s): Mother of throat cancer at the age of 63 yrs. She was a smoker. Father Family Medical History: Coronary Artery Disease (CAD), Hyperlipidemia, Hypertension Additional Family Medical History / Comment(s): Father is 70 yrs old. Medications and Allergies Home Medications Medication Instructions Recorded Confirmed Type Atorvastatin [Lipitor] 40 mg PO HS 09/14/15 07/12/18 History Cyclobenzaprine [Flexeril] 5 mg PO HS 09/14/15 07/12/18 History Insulin Glargine [Lantus] 80 unit SQ HS 04/18/16 07/12/18 History hydrALAZINE HCL [Apresoline] 100 mg PO TID #180 tab 06/10/16 07/12/18 Rx cloNIDine HCL 0.3 mg PO TID 12/16/16 07/12/18 History rOPINIRole HCL [Requip] 1 mg PO TID 02/07/17 07/12/18 History Sevelamer [Renvela] 800 mg PO DAILY PRN 08/21/17 07/12/18 History Lidocaine-Prilocaine Cream [Emla 1 applic TOPICAL TUTHSA PRN 09/21/17 07/12/18 History Cream 2.5%/2.5%] HYDROcodone/APAP 5-325MG [Mamou 1 tab PO Q8HR PRN #45 tab 09/24/17 07/12/18 Rx 5-325] amLODIPine [Norvasc] 10 mg PO DAILY 10/06/17 07/12/18 History Furosemide [Lasix] 80 mg PO BID 10/22/17 07/12/18 History Metoprolol Tartrate [Lopressor] 50 mg PO BID 10/22/17 07/12/18 History Prochlorperazine [Compazine] 5 mg PO BID PRN 10/26/17 07/12/18 History Diazepam [Valium] 5 mg PO BID 02/10/18 07/12/18 History Lactulose 10 gm PO TID PRN 03/13/18 07/12/18 History Sevelamer [Renvela] 2,400 mg PO AC-TID 03/13/18 07/12/18 History Gabapentin [Neurontin] 100 mg PO TID 05/17/18 07/12/18 History INSULIN LISPRO (humaLOG) [humaLOG] See Protocol SQ DIRECTED 05/17/18 History Promethazine 6.25MG/5Ml [Phenergan 6.25 mg PO Q6HR PRN 05/17/18 07/12/18 History Syrup] Erythromycin Ophth Oint [Romycin 1 applic BOTH EYES BID 07/12/18 07/12/18 History Ophth Oint] INSULIN LISPRO (humaLOG) [humaLOG] 18 unit SQ QID 07/12/18 07/12/18 History Sodium Polystyrene Sulfonate 30 gm PO SUMOWEFR 07/12/18 07/12/18 History [Kayexalate] Allergies Allergy/AdvReac Type Severity Reaction Status Date / Time ciprofloxacin [From Cipro] AdvReac AFFECTED Verified 07/12/18 22:08 EYESIGHT ciprofloxacin HCl AdvReac AFFECTED Verified 07/12/18 22:08 [From Cipro] EYESIGHT Iodinated Contrast- Oral and AdvReac RENAL Verified 07/12/18 22:08 IV Dye FAILURE Physical Exam Vitals: Vital Signs Temp Pulse Resp BP Pulse Ox 07/14/18 08:00 98.3 F 71 18 160/73 99 07/14/18 04:00 97.9 F 67 18 145/78 100 07/14/18 00:00 97.6 F 72 17 142/74 92 L 07/13/18 20:00 97.0 F L 74 18 139/75 97 07/13/18 16:00 98.8 F 72 18 150/67 99 Intake and Output 07/13/18 07/14/18 07/14/18 22:59 06:59 14:59 Intake Total 222 240 Balance 222 240 Intake: Oral 222 240 Other: # Voids 1 1 0 # Bowel Movements 0 GENERAL EXAM: Patient is alert and oriented and doesn't appear to be in any acute distress HEENT: Normocephalic. Normal reaction of pupils, equal size, normal range of extraocular motion. No erythema or exudates in the throat. NECK: No masses, no nuchal rigidity. CHEST: No chest wall deformity. LUNGS: Equal air entry with no crackles or wheeze. HEART: S1 and S2 normal with no audible mumurs or gallops. Regular rhythm, femorals equal on both sides.. ABDOMEN: No hepatosplenomegaly, normal bowel sounds, no guarding or rigidity. SKIN: No rashes CENTRAL NERVOUS SYSTEM: No focal deficits. EXTREMITIES: No cyanosis, clubbing or edema. Results 07/14/18 05:56 07/14/18 05:56 Cardiac Enzymes 07/14/18 Range/Units 05:56 AST 19 (14-36) U/L CBC 07/14/18 Range/Units 05:56 WBC 2.8 L (3.8-10.6) k/uL RBC 2.43 L (3.80-5.40) m/uL Hgb 7.7 L (11.4-16.0) gm/dL Hct 23.8 L (34.0-46.0) % Plt Count 97 L (150-450) k/uL Comprehensive Metabolic Panel 07/14/18 Range/Units 05:56 Sodium 137 (137-145) mmol/L Potassium 6.1 H* (3.5-5.1) mmol/L Chloride 97 L (98-107) mmol/L Carbon Dioxide 27 (22-30) mmol/L BUN 52 H (7-17) mg/dL Creatinine 9.65 H* (0.52-1.04) mg/dL Glucose 90 (74-99) mg/dL Calcium 9.1 (8.4-10.2) mg/dL AST 19 (14-36) U/L ALT 27 (9-52) U/L Alkaline Phosphatase 60 (38-126) U/L Total Protein 6.6 (6.3-8.2) g/dL Albumin 4.2 (3.5-5.0) g/dL Current Medications Generic Name Dose Route Start Last Admin Trade Name Freq PRN Reason Stop Dose Admin Acetaminophen 650 mg 07/13/18 01:50 Tylenol Tab PO Q6HR PRN Mild Pain or Fever > 100.5 Hydrocodone Bitart/Acetaminophen 1 each 07/13/18 01:53 07/13/18 21:35 Mamou 5-325 PO 1 each Q8HR PRN Administration Pain Amlodipine Besylate 10 mg 07/13/18 09:00 07/14/18 08:54 Norvasc PO 10 mg DAILY ANNI Administration Atorvastatin Calcium 40 mg 07/13/18 21:00 07/13/18 21:29 Lipitor PO 40 mg HS ANNI Administration Clonidine 0.3 mg 07/13/18 09:00 07/14/18 08:55 Catapres PO 0.3 mg TID ANNI Administration Darbepoetin Drew 60 mcg 07/13/18 12:00 07/13/18 16:46 Aranesp SQ 60 mcg Q7D ANNI Administration Diazepam 5 mg 07/13/18 09:00 07/14/18 08:54 Valium PO 5 mg BID ANNI Administration Furosemide 80 mg 07/13/18 09:00 07/14/18 08:55 Lasix PO 80 mg BID ANNI Administration Gabapentin 100 mg 07/13/18 09:00 07/14/18 08:54 Neurontin PO 100 mg TID ANNI Administration Hydralazine HCl 100 mg 07/13/18 09:00 07/14/18 08:55 Apresoline PO 100 mg TID ANNI Administration Insulin Aspart 18 unit 07/13/18 09:00 07/14/18 12:58 Novolog SQ 18 unit QID ANNI Administration Insulin Detemir 80 unit 07/13/18 21:00 07/13/18 21:29 Levemir SQ 80 unit HS ANNI Administration Lactulose 10 gm 07/13/18 01:53 Cephulac PO TID PRN Constipation Lidocaine/Prilocaine 1 applic 07/13/18 06:00 Emla Cream 2.5%/2.5% TOPICAL TUTHSA PRN DIALYSIS Metoprolol Tartrate 50 mg 07/13/18 09:00 07/14/18 08:55 Lopressor PO 50 mg BID ANNI Administration Naloxone HCl 0.2 mg 07/13/18 01:50 Narcan IV Q2M PRN Opioid Reversal Prochlorperazine Maleate 5 mg 07/13/18 01:53 07/14/18 11:16 Compazine PO 5 mg BID PRN Administration Nausea Ropinirole HCl 1 mg 07/13/18 09:00 07/14/18 08:55 Requip PO 1 mg TID ANNI Administration Sevelamer Carbonate 2,400 mg 07/13/18 07:30 07/14/18 12:58 Renvela PO 2,400 mg AC-TID ANNI Administration Sevelamer Carbonate 800 mg 07/13/18 01:53 Renvela PO DAILY PRN SNACKS Intake and Output 07/13/18 07/14/18 07/14/18 22:59 06:59 14:59 Intake Total 222 240 Balance 222 240 Intake: Oral 222 240 Other: # Voids 1 1 0 # Bowel Movements 0 07/14/18 05:56 07/14/18 05:56 EKG Interpretations (text) Sinus rhythm with right bundle-branch block, nonspecific ST-T changes Assessment and Plan (1) ESRD (end stage renal disease) on dialysis Current Visit: Yes Status: Acute Code(s): N18.6 - END STAGE RENAL DISEASE; Z99.2 - DEPENDENCE ON RENAL DIALYSIS SNOMED Code(s): 694046050 (2) Fluid overload Current Visit: Yes Status: Acute Code(s): E87.70 - FLUID OVERLOAD, UNSPECIFIED SNOMED Code(s): 88154386 (3) Anemia Current Visit: No Status: Acute Code(s): D64.9 - ANEMIA, UNSPECIFIED SNOMED Code(s): 537980094 (4) Diabetes Current Visit: No Status: Acute Code(s): E11.9 - TYPE 2 DIABETES MELLITUS WITHOUT COMPLICATIONS SNOMED Code(s): 72736335 (5) HTN (hypertension) Current Visit: No Status: Acute Code(s): I10 - ESSENTIAL (PRIMARY) HYPERTENSION SNOMED Code(s): 73296756 (6) Abnormal EKG Current Visit: Yes Status: Acute Code(s): R94.31 - ABNORMAL ELECTROCARDIOGRAM [ECG] [EKG] SNOMED Code(s): 688347501 (7) Atypical chest pain Current Visit: Yes Status: Acute Code(s): R07.89 - OTHER CHEST PAIN SNOMED Code(s): 771955813 Plan: Patient seemed to be clinically stable. Her chest pains are atypical. EKG changes are nonspecific and chronic. No further cardiac workup at this time. When renal status is stable, patient could be discharged home. Follow-up as an outpatient
--- NOTE | 2018-07-14 15:44 | PN ---
PROGRESS NOTE SUBJECTIVE: This is a white female with fluid overload, getting more dialysis today and tomorrow. Blood pressures have come down to 140s to 160 systolic over 70s diastolic. She is saturating 99% on 2 L, which is improved. Cardiovascular is S1, S2. Lungs are clear. Sitting up in bed, talking comfortably. Hemoglobin is down to 7.7, white count 2.8. BUN is 52, creatinine 9.65. Sugars in the mid 100s to low 200s. Cardiology has seen her for fluid overload and hypertension acceleration. EKG shows right bundle branch block. Echo showed normal LV function earlier this year. Hyperkalemia was improved with medications. She is stable at this point from medical standpoint. Possible discharge home tomorrow after dialysis. MMODL / IJN: [id number] /
[2018-07-14] MEDS: HYDROcodone/APAP 5-325MG 1 EACH TAB PO PRN (16:38)
[2018-07-14 16:59] LABS: Glucose,Whole Blood 189 mg/dL (75-99)
[2018-07-14 20:45] LABS: Glucose,Whole Blood 181 mg/dL (75-99)
[2018-07-14] MEDS: INSULIN DETEMIR (LEVEMIR) 100 UNIT/ML SYR SQ SCH (21:32)
[2018-07-14] MEDS: ATORVASTATIN 40 MG TAB PO SCH (21:33)
--- NOTE | 2018-07-14 21:47 | PN ---
PROGRESS NOTE Patient is seen for followup for end-stage renal disease. She is sitting up in a bedside chair. Patient denies any significant complaints. She will be dialyzed today as well as tomorrow. Patient states her shortness of breath has improved. On examination this morning, blood pressure was 160/73, heart rate 71 per minute. Patient is afebrile. EXAMINATION OF THE HEART: S1 and S2. EXAMINATION OF LUNGS: Decreased breath sounds at the bases. Minimal basal crackles are heard bilaterally. ABDOMEN: Soft, non-tender. Examination of lower extremities shows trace edema bilaterally. [employer] exam is grossly intact. Labs show sodium 137, potassium 6.1, BUN 52, serum creatinine 9.65 and hemoglobin of 7.7 g/dL. ASSESSMENT: 1. End-stage renal disease, on hemodialysis on a Thursday, , Thursday schedule. Patient was dialyzed urgently chief medical director yesterday. She will have her treatment today as well as tomorrow. 2. Hyperkalemia. Rule out underlying gastrointestinal bleed. Hemoglobin has dropped as well. We will check stool for occult blood and repeat a CBC in a.m. 3. Fluid overload on admission, currently improved. 4. Respiratory failure secondary to congestive heart failure and volume overload, now improved. 5. Type 2 diabetes. 6. Anemia. Rule out gastrointestinal bleed. PLAN: Check stool for occult blood. Hemodialysis today as well as in a.m. Maintain patient on Aranesp. Continue with the phosphate binders. MMODL / IJN: [id number] /
[2018-07-15] MEDS ORDERED: HYDROcodone/APAP 5-325MG 1 EACH TAB ONE (03:15)
[2018-07-15 06:07] LABS: Glucose,Whole Blood 161 mg/dL (75-99)
[2018-07-15] MEDS: PROCHLORPERAZINE 5 MG TAB PO PRN ×2 (06:23→20:35)
[2018-07-15] MEDS: SEVELAMER 800 MG TAB PO SCH ×3 (07:01→18:21)
[2018-07-15] MEDS: INSULIN ASPART (NovoLOG) 100 UNIT/ML VIAL SQ SCH ×4 (07:47→20:40)
[2018-07-15] MEDS: cloNIDine HCL 0.1 MG TAB PO SCH ×3 (09:26→20:39)
[2018-07-15] MEDS: hydrALAZINE HCL 50 MG TAB PO SCH ×3 (09:30→20:41)
[2018-07-15] MEDS: DIAZEPAM 5 MG TAB PO SCH ×2 (09:32→20:39)
[2018-07-15] MEDS: GABAPENTIN 100 MG CAP PO SCH ×3 (09:32→20:40)
[2018-07-15 11:17] LABS: Glucose,Whole Blood 118 mg/dL (75-99)
--- NOTE | 2018-07-15 12:03 | P.PN ---
Subjective Progress Note Date: 07/15/18 This is a 53-year-old female with history of chronic kidney disease on dialysis, diabetes, hypertension, hyperlipidemia and chronic anemia who is admitted to the hospital with increasing shortness of breath. Patient is being dialyzed at [facility] [facility] and apparently she and not enough fluid was taken out during last dialysis. Her proBNP is elevated. Patient also had hyperkalemia on admission. Patient had dialysis early this morning and patient is feeling better. She did complain of some vague chest pain. She claims that she gets his chest pain and cramps from time to time and usually Ebro helps the pain. EKG showed sinus rhythm with the right bundle-branch block and nonspecific T-wave changes. Patient had an echocardiogram done in May which showed normal LV function. Her symptoms appear to be atypical. On her troponin values within normal limits. At the time of my examination patient is very comfortable. No cardiac evaluation at this time. Follow-up as an outpatient 07/15/2018 Patient seen and examined this morning, currently undergoing dialysis. Denies any further chest discomfort. She is concerned about being discharged before she is ready and coming right back. We instructed her to discuss this with nephrology when they round. From a cardiac standpoint things are stable. Objective - Vital Signs Vital signs: Vital Signs Temp 98.9 F 07/15/18 11:26 Pulse 73 07/15/18 11:26 Resp 16 07/15/18 11:26 BP 158/75 07/15/18 11:26 Pulse Ox 97 07/15/18 11:26 Intake & Output 07/14/18 07/15/18 07/15/18 18:59 06:59 18:59 Intake Total 702 360 Balance 702 360 Weight 74.8 kg Intake: Oral 702 360 Other: Voiding Method Toilet Toilet # Voids 1 1 # Bowel Movements 0 - Exam GENERAL EXAM: Patient is alert and oriented and doesn't appear to be in any acute distress HEENT: Normocephalic. Normal reaction of pupils, equal size, normal range of extraocular motion. No erythema or exudates in the throat. NECK: No masses, no nuchal rigidity. CHEST: No chest wall deformity. LUNGS: Equal air entry with no crackles or wheeze. HEART: S1 and S2 normal with no audible mumurs or gallops. Regular rhythm, femorals equal on both sides.. ABDOMEN: No hepatosplenomegaly, normal bowel sounds, no guarding or rigidity. SKIN: No rashes CENTRAL NERVOUS SYSTEM: No focal deficits. EXTREMITIES: No cyanosis, clubbing or edema - Labs CBC & Chem 7: 07/14/18 05:56 07/14/18 05:56 Labs: Abnormal Lab Results - Last 24 Hours (Table) 07/14/18 07/14/18 07/15/18 Range/Units 16:58 20:43 05:41 POC Glucose (mg/dL) 189 H 181 H 161 H (75-99) mg/dL 07/15/18 Range/Units 11:15 POC Glucose (mg/dL) 118 H (75-99) mg/dL Assessment and Plan Plan: Assessment and plan #1 end-stage renal disease on hemodialysis #2 fluid overload #3 anemia #4 diabetes #5 hypertension #6 atypical chest pain Plan \From cardiology's perspective, patient may be able to be discharged once cleared by primary and nephrology. We will follow her along now on an as-needed basis only, please don't hesitate to call with any questions. DNP note has been reviewed, I agree with a documented findings and plan of care. Patient was seen and examined.
[2018-07-15] MEDS ORDERED: GELATIN SPONGE,ABSORB (LARGE) 1 EACH SPONGE ONE (13:30)
[2018-07-15] MEDS ORDERED: LIDOCAINE 1% INJ 10MG/ML (20 ML MDV) ONE (13:30)
--- NOTE | 2018-07-15 13:55 | P.PN ---
Subjective Patient is seen in follow-up for end-stage renal disease. She is maintained on hemodialysis on a Thursday schedule. Currently seen while undergoing hemodialysis. Dyspnea is improved. No chest pain or shortness of breath. Vital signs are stable. General: The patient appeared well nourished and normally developed. HEENT: Head exam is unremarkable. Neck is without jugular venous distension. LUNGS: Lungs are clear to auscultation and percussion. Breath sounds decreased. HEART: Rate and Rhythm are regular. First and second heart sounds normal. No murmurs, rubs or gallops. ABDOMEN: Abdominal exam reveals normal bowel sounds. Non-tender and non- distended. No evidence of peritonitis. EXTREMITITES: No clubbing, cyanosis, or edema. Objective - Vital Signs Vital signs: Vital Signs Temp 98.9 F 07/15/18 11:26 Pulse 73 07/15/18 11:26 Resp 16 07/15/18 11:26 BP 158/75 07/15/18 11:26 Pulse Ox 97 07/15/18 11:26 Intake & Output 07/14/18 07/15/18 07/15/18 18:59 06:59 18:59 Intake Total 702 360 Balance 702 360 Weight 74.8 kg Intake: Oral 702 360 Other: Voiding Method Toilet Toilet # Voids 1 1 # Bowel Movements 0 - Labs CBC & Chem 7: 07/14/18 05:56 07/14/18 05:56 Labs: Abnormal Lab Results - Last 24 Hours (Table) 07/14/18 07/14/18 07/15/18 Range/Units 16:58 20:43 05:41 POC Glucose (mg/dL) 189 H 181 H 161 H (75-99) mg/dL 07/15/18 Range/Units 11:15 POC Glucose (mg/dL) 118 H (75-99) mg/dL Assessment and Plan Plan: Assessment: 1. End-stage renal disease maintained on hemodialysis on a Thursday schedule. 2. Volume overload. Improved with ultrafiltration. 3. Hypertension with chronic kidney disease. Partially volume sensitive. 4. Anemia of chronic kidney disease maintained on Aranesp. 5. Insulin-dependent diabetes mellitus. 6. Chronic kidney disease mineral bone disease maintained on Renvela. Plan: Currently seen while undergoing hemodialysis. Next treatment on Thursday. Repeat chest x-ray after dialysis. Stressed importance of being compliant with her hemodialysis treatments as an outpatient.
[2018-07-15 14:47] LABS: Glucose,Whole Blood 103 mg/dL (75-99)
--- NOTE | 2018-07-15 14:58 | US ---
EXAMINATION TYPE: US carotid duplex BILAT DATE OF EXAM: 07/15/2018 COMPARISON: NONE CLINICAL HISTORY: bruits. EXAM MEASUREMENTS: RIGHT: Peak Systolic Velocity (PSV) cm/sec ----- Right CCA: 65.1 ----- Right ICA: 144.7 ----- Right ECA: 128.6 ICA/CCA ratio: 2.2 RIGHT: End Diastole cm/sec ----- Right CCA: 19.7 ----- Right ICA: 49.4 ----- Right ECA: 0.0 LEFT: Peak Systolic Velocity (PSV) cm/sec ----- Left CCA: 83.1 ----- Left ICA: 198.3 ----- Left ECA: 130.2 ICA/CCA ratio: 2.4 LEFT: End Diastole cm/sec ----- Left CCA: 19.3 ----- Left ICA: 44.5 ----- Left ECA: 0.0 VERTEBRALS (direction of flow): Right Vertebral: Antegrade Left Vertebral: Antegrade Rhythm: Normal Mildly elevated velocities noted. Minimal plaque present. IMPRESSION: 50-69% stenosis within both internal carotid arteries and external carotid arteries that could be fur ther assessed with CTA neck. Criteria for Assigning % of Stenosis / Diameter reduction (Estimation based on the indirect measurements of the internal carotid artery velocities (ICA PSV). 1. Normal (no stenosis)=ICA PSV < 125 cm/s: ratio < 2.0: ICA EDV<40 cm/s. 2. Less than 50% stenosis=ICA PSV < 125 cm/s: ratio < 2.0: ICA EDV<40 cm/s. 3. 50 to 69% stenosis=ICA PSV of 125 to 230 cm/s: ration 2.0 ? 4.0: ICA EDV 40-100 cm/s. 4. Greater than 70% stenosis to near occlusion= ICA PSV > 230 cm/s: ratio > 4.0: ICA EDV > 100 cm/s. 5. Near occlusion= ICA PSV velocities may be low or undetectable: variable ratio and ICA EDV. 6. Total occlusion=unable to detect flow.
--- NOTE | 2018-07-15 15:13 | XR ---
EXAMINATION TYPE: XR chest 1V portable DATE OF EXAM: 07/15/2018 COMPARISON: 07/12/2018 HISTORY: Shortness of breath TECHNIQUE: Single frontal view of the chest is obtained. FINDINGS: There is no focal air space opacity, pleural effusion, or pneumothorax seen. The cardiac silhouette size is again enlarged. The osseous structures are intact. IMPRESSION: Resolution of the previously seen pulmonary edema. Cardiomegaly without sequela of conge stive heart failure at this time.
[2018-07-15] MEDS: FUROSEMIDE 80 MG TAB PO SCH ×2 (15:17→20:39)
[2018-07-15] MEDS: METOPROLOL TARTRATE 50 MG TAB PO SCH ×2 (15:17→20:39)
[2018-07-15] MEDS: HYDROcodone/APAP 5-325MG 1 EACH TAB PO PRN ×2 (15:23→22:53)
[2018-07-15 15:59] LABS: Glucose,Whole Blood 233 mg/dL (75-99)
[2018-07-15] MEDS: amLODIPine 10 MG TAB PO SCH (17:10)
[2018-07-15 20:34] LABS: Glucose,Whole Blood 183 mg/dL (75-99)
[2018-07-15] MEDS: INSULIN DETEMIR (LEVEMIR) 100 UNIT/ML SYR SQ SCH (20:39)
[2018-07-15] MEDS: ATORVASTATIN 40 MG TAB PO SCH (20:39)
[2018-07-15 22:53] LABS: Glucose,Whole Blood 120 mg/dL (75-99)
[2018-07-16] MEDS: PROCHLORPERAZINE 5 MG TAB PO PRN (06:21)
[2018-07-16 06:27] LABS: Glucose,Whole Blood 138 mg/dL (75-99)
[2018-07-16] MEDS: SEVELAMER 800 MG TAB PO SCH (07:00)
[2018-07-16] MEDS: INSULIN ASPART (NovoLOG) 100 UNIT/ML VIAL SQ SCH (07:01)
[2018-07-16 08:11] VITALS: BP 145/88; PULSE 70; RESP 16; TEMP 98.7
[2018-07-16] MEDS: METOPROLOL TARTRATE 50 MG TAB PO SCH (08:20)
[2018-07-16] MEDS: FUROSEMIDE 80 MG TAB PO SCH (08:20)
[2018-07-16] MEDS: GABAPENTIN 100 MG CAP PO SCH (08:20)
[2018-07-16] MEDS: DIAZEPAM 5 MG TAB PO SCH (08:20)
[2018-07-16] MEDS: hydrALAZINE HCL 50 MG TAB PO SCH (08:20)
[2018-07-16] MEDS: cloNIDine HCL 0.1 MG TAB PO SCH (08:21)
--- NOTE | 2018-07-16 23:04 | PN ---
PROGRESS NOTE Patient is seen for followup for end-stage renal disease. The patient tolerated dialysis well. She will be discharged today and will follow up for dialysis as outpatient tomorrow. PHYSICAL EXAMINATION: On examination today, blood pressure was 146/61, heart rate 69 per minute, patient is afebrile. Examination of the heart S1, S2. Examination lungs bilateral breath sounds are heard. Decreased breath sounds at bases. Abdomen is soft, nontender. Examination lower extremities shows no significant edema. No recent labs are available. ASSESSMENT: 1. End-stage renal disease, on hemodialysis on a Thursday, , Thursday schedule at [facility]. 2. Hyperkalemia status post dialysis. 3. Fluid overload, currently improved. 4. Anemia of chronic disease. PLAN: Check labs today prior to discharge and followup as outpatient for hemodialysis tomorrow. MMODL / IJN: [id number] /
--- NOTE | 2018-07-19 11:48 | CDI ---
Documentation Clarification Form Date: 07/19/2018 10:36:00 AM From: Kasia Wood Oliva Kurtz, Grapple Crew Leader Hours-8:30 am & 5 pm M-Zhen Admit Date: 07/13/2018 1:28:00 AM Patient Name: Sara Desouza Visit Number: [id number] Discharge Date: 07/16/2018 10:33:00 AM ATTENTION: The Clinical Documentation Specialists (CDI) and [facility] Coding Staff appreciate your assistance in clarifying documentation. Please respond to the clarification below the line at the bottom and electronically sign. The CDI & [facility] Coding staff will review the response and follow-up if needed. Please note: Queries are made part of the Legal Health Record. If you have any questions, please contact the author of this message via ITS. Dr. David Bragg CHF is documented in the ED Note, H&P, PNs. PN 3/6 documents respiratory failure secondary to CHF/volume overload. History/Risk Factors: HTN, ESRD, DM Clinical Indicators: Respiratory Failure, Volume Overload O2 Sat: 73, 77, 86 BNP: [id number] Chest X Ray: Possible pulmonary congestion/edema/small left pleural effusion Treatment: Dialysis - PO Lasix In your professional opinion, can you please clarify the acuity and type of CHF if known? Systolic Heart Failure: Acute Chronic Acute on Chronic Diastolic Heart Failure: Acute Chronic Acute on Chronic Systolic & Diastolic Heart Failure: Acute Chronic Acute on Chronic Heart Failure Unable to Determine Other, please specify MTDD
--- NOTE | 2018-07-23 12:29 | CDI ---
Documentation Clarification Form Date: 07/19/2018 10:36:00 AM From: Kasia Wood Oliva Kurtz, Air Compressor Mechanic Hours-8:30 am & 5 pm M-Zhen Admit Date: 07/13/2018 1:28:00 AM Patient Name: Sara Desouza Visit Number: [id number] Discharge Date: 07/16/2018 10:33:00 AM ATTENTION: The Clinical Documentation Specialists (CDI) and [facility] Coding Staff appreciate your assistance in clarifying documentation. Please respond to the clarification below the line at the bottom and electronically sign. The CDI & [facility] Coding staff will review the response and follow-up if needed. Please note: Queries are made part of the Legal Health Record. If you have any questions, please contact the author of this message via ITS. Dr. David Bragg CHF is documented in the ED Note, H&P, PNs. PN 3/6 documents respiratory failure secondary to CHF/volume overload. History/Risk Factors: HTN, ESRD, DM Clinical Indicators: Respiratory Failure, Volume Overload O2 Sat: 73, 77, 86 BNP: [id number] Chest X Ray: Possible pulmonary congestion/edema/small left pleural effusion Treatment: Dialysis - PO Lasix In your professional opinion, can you please clarify the acuity and type of CHF if known? Systolic Heart Failure: Acute Chronic Acute on Chronic Diastolic Heart Failure: Acute Chronic Acute on Chronic Systolic & Diastolic Heart Failure: Acute Chronic Acute on Chronic Heart Failure Unable to Determine Other, please specify MTDD
--- NOTE | 2018-07-28 08:03 | DS ---
DISCHARGE SUMMARY Please add to discharge summary: Acute on chronic systolic and diastolic heart failure. MMSALAZARL / IJN: [id number] /
== END 2018-07-16 10:33 | disposition home or self-care (01) | DRG 291 ==
LOC: EC 21:17 → 3SCARD 07-13 01:28
PROVIDERS: ADMIT Family Medicine; ATTEND Family Medicine
PROC: 5A1D70Z Performance of Urinary Filtration, Intermittent, Less than 6 Hours Per Day (ICD-10-PCS; principal; 2018-07-13)
DX: I13.2 Hypertensive heart and chronic kidney disease with heart failure and with stage 5 chronic kidney disease, or end stage renal disease (principal); N18.6 End stage renal disease; J96.90 Respiratory failure, unspecified, unspecified whether with hypoxia or hypercapnia; I50.43 Acute on chronic combined systolic (congestive) and diastolic (congestive) heart failure; E11.22 Type 2 diabetes mellitus with diabetic chronic kidney disease; E87.5 Hyperkalemia; H35.63 Retinal hemorrhage, bilateral; E78.5 Hyperlipidemia, unspecified; E78.1 Pure hyperglyceridemia; D63.1 Anemia in chronic kidney disease; I45.10 Unspecified right bundle-branch block; R07.89 Other chest pain; K76.9 Liver disease, unspecified; M89.8X9 Other specified disorders of bone, unspecified site; Z79.4 Long term (current) use of insulin; Z79.899 Other long term (current) drug therapy; Z86.010 Personal history of colon polyps; Z99.2 Dependence on renal dialysis; Z87.01 Personal history of pneumonia (recurrent); Z98.42 Cataract extraction status, left eye; Z98.41 Cataract extraction status, right eye; Z87.440 Personal history of urinary (tract) infections; Z88.1 Allergy status to other antibiotic agents; Z88.5 Allergy status to narcotic agent; Z88.8 Allergy status to other drugs, medicaments and biological substances; Z82.49 Family history of ischemic heart disease and other diseases of the circulatory system; Z83.438 Family history of other disorder of lipoprotein metabolism and other lipidemia; Z80.0 Family history of malignant neoplasm of digestive organs; Z83.3 Family history of diabetes mellitus
CPT/HCPCS: 36415; 71045; 71046; 80053; 83735; 83880; 84484; 85025; 85379; 85610; 85730; 86706; 87340; 90935; 93005; 93880; 99285

== ENCOUNTER → 2018-09-16 | Outpatient (CLI) | payer OTHER ==
--- NOTE | 2018-09-16 14:48 | XR ---
EXAMINATION TYPE: XR chest 2V DATE OF EXAM: 09/16/2018 COMPARISON: Chest x-ray July 15, 2018. CT chest October 27, 2017. HISTORY: Pleural effusion per order. TECHNIQUE: Frontal and lateral views of the chest are obtained. FINDINGS: There is no focal air space opacity, pleural effusion, or pneumothorax seen. The cardiac silhouette size is stable and enlarged. The osseous structures are intact. IMPRESSION: Persistent cardiac silhouette enlargement which corresponds to moderate to large pericar dial effusion on CT. No significant interval change from prior studies.
== END | disposition home or self-care (01) ==
LOC: RADXRMAIN 14:19
PROVIDERS: ATTEND Family Medicine
DX: I31.3 Pericardial effusion (noninflammatory) (principal)
CPT/HCPCS: 71046

== ENCOUNTER 2018-11-01 13:00 | Inpatient (IN) | payer OTHER ==
--- NOTE | 2018-11-01 13:49 | ED ---
General Adult HPI - General Chief complaint: Weakness Stated complaint: Weakness Time Seen by Provider: 11/01/18 13:00 Source: patient, RN notes reviewed Mode of arrival: wheelchair Limitations: physical limitation - History of Present Illness Initial comments: This is a 53-year-old female presents emergency department with past medical history significant for dialysis and anemia. Patient states she has been very weak lately and it typically happens when she becomes anemic. Patient also states at night she's been coughing more and then when she is coughing she is short of breath per patient states it does not occur during the day and currently she is not short of breath. Patient denies any chest pain or palpitations. Patient denies any recent fever chills. Patient denies any lightheadedness or dizziness. Patient denies any abdominal pain patient denies nausea vomiting diarrhea. Patient denies any back pain. Patient denies any swelling to legs. - Related Data Home Medications Medication Instructions Recorded Confirmed Atorvastatin [Lipitor] 40 mg PO HS 09/14/15 11/01/18 Cyclobenzaprine [Flexeril] 10 mg PO HS 09/14/15 11/01/18 Insulin Glargine [Lantus] 70 unit SQ HS 04/18/16 11/01/18 cloNIDine HCL 0.3 mg PO TID 12/16/16 11/01/18 rOPINIRole HCL [Requip] 1 mg PO TID 02/07/17 11/01/18 Sevelamer [Renvela] 800 mg PO DAILY PRN 08/21/17 11/01/18 amLODIPine [Norvasc] 10 mg PO DAILY 10/06/17 11/01/18 Furosemide [Lasix] 80 mg PO BID 10/22/17 11/01/18 Metoprolol Tartrate [Lopressor] 50 mg PO BID 10/22/17 11/01/18 Prochlorperazine [Compazine] 5 mg PO BID PRN 10/26/17 11/01/18 Diazepam [Valium] 5 mg PO BID 02/10/18 11/01/18 Sevelamer [Renvela] 2,400 mg PO AC-TID 03/13/18 11/01/18 Gabapentin [Neurontin] 100 mg PO TID 05/17/18 11/01/18 INSULIN LISPRO (humaLOG) [humaLOG] See Protocol SQ AC-TID 05/17/18 11/01/18 INSULIN LISPRO (humaLOG) [humaLOG] 18 unit SQ AC-TID 07/12/18 11/01/18 Lisinopril [Zestril] 20 mg PO DAILY 11/01/18 11/01/18 Omeprazole 20 mg PO DAILY 11/01/18 11/01/18 [place] 1 tab PO DAILY 11/01/18 11/01/18 traMADol HCL [Ultram] 50 mg PO Q4HR PRN 11/01/18 11/01/18 Previous Rx's Medication Instructions Recorded HYDROcodone/APAP 5-325MG [[place] 1 tab PO Q8HR PRN #45 tab 09/24/17 5-325] Allergies Allergy/AdvReac Type Severity Reaction Status Date / Time ciprofloxacin [From Cipro] AdvReac AFFECTED Verified 11/01/18 13:27 EYESIGHT ciprofloxacin HCl AdvReac AFFECTED Verified 11/01/18 13:27 [From Cipro] EYESIGHT Iodinated Contrast- Oral and AdvReac RENAL Verified 11/01/18 13:27 IV Dye FAILURE Review of Systems ROS Statement: Those systems with pertinent positive or pertinent negative responses have been documented in the HPI. ROS Other: All systems not noted in ROS Statement are negative. 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 hemodialysis for acute kidney injury 2 months in 2009 after pancreatic OR, 11/2015 diagnosed w/ chronic kidney disease-hemodialysis //-last hemodialysis 07-10-18, IDDM type II, past DKA, pt states she has dry heaves day after dialysis, UTI, chronic anemia, frequent body cramping, occasional low back pain, carter's palsy x2, past L leg fx, possible liver disease-recent liver bx-results unknown per pt. History of Any Multi-Drug Resistant Organisms: None Reported Past Surgical History: Orthopedic Surgery, Uterine Ablation Additional Past Surgical History / Comment(s): Recent liver biopsy done at [facility] but pt states they have never contacted her with the results, 08/26/17 colonoscopy with polypectomy/bx, pancreatic resection at [facility] 2009, bone marrow biopsies X2-last one 05/19/16,. dialysis chest port x 2 with removals, Left arm shunt placement for dialysis - December 2015 and a revision done with shunt. Past Anesthesia/Blood Transfusion Reactions: No Reported Reaction Additional Past Anesthesia/Blood Transfusion Reaction / Comment(s): Pt has received blood transfusions without reaction. Past Psychological History: No Psychological Hx Reported Smoking Status: Never smoker Past Alcohol Use History: None Reported Past Drug Use History: None Reported - Past Family History Brother(s) Family Medical History: No Reported History Mother Family Medical History: Cancer, Diabetes Mellitus, Hypertension Additional Family Medical History / Comment(s): Mother of throat cancer at the age of 63 yrs. She was a smoker. Father Family Medical History: Coronary Artery Disease (CAD), Hyperlipidemia, Hypertension Additional Family Medical History / Comment(s): Father is 70 yrs old. General Exam - General Exam Comments Initial Comments: GENERAL: Patient is well-developed and well-nourished. Patient is nontoxic and well- hydrated and is in mild distress. ENT: Neck is soft and supple. No significant lymphadenopathy is noted. Oropharynx is clear. Moist mucous membranes. Neck has full range of motion without eliciting any pain. EYES: The sclera were anicteric and conjunctiva were pink and moist. Extraocular movements were intact and pupils were equal round and reactive to light. Eyelids were unremarkable. PULMONARY: Unlabored respirations. Good breath sounds bilaterally. No audible rales rhonchi or wheezing was noted. CARDIOVASCULAR: There is a regular rate and rhythm without any murmurs gallops or rubs. ABDOMEN: Soft and nontender with normal bowel sounds. No palpable organomegaly was noted. There is no palpable pulsatile mass. SKIN: Skin is clear with no lesions or rashes and otherwise unremarkable. NEUROLOGIC: Patient is alert and oriented x3. Cranial nerves II through XII are grossly intact. Motor and sensory are also intact. Normal speech, volume and content. Symmetrical smile. MUSCULOSKELETAL: Normal extremities with adequate strength and full range of motion. No lower extremity swelling or edema. No calf tenderness. LYMPHATICS: No significant lymphadenopathy is noted PSYCHIATRIC: Normal psychiatric evaluation. Limitations: physical limitation Course Vital Signs 11/01/18 13:01 Temperature 98.9 F Pulse Rate 81 Respiratory 18 Rate Blood Pressure 218/77 O2 Sat by Pulse 97 Oximetry Medical Decision Making - Medical Decision Making EKG shows normal sinus rhythm at 60 bpm HI interval 172 QRS 98 QT interval is 426 QTC is 450. Patient's EKG shows no ST segment elevation or depression or T wave abnormalities are noted. Patient has anemia I started the patient was 1 unit of packed red blood cells. I spoke with Dr. Bragg he wanted the patient that he wanted GI to follow the patient. I wrote admitting orders and I did serial CBCs - Lab Data Result diagrams: 11/01/18 13:45 11/01/18 13:45 Lab Results 11/01/18 11/01/18 11/01/18 Range/Units 13:45 13:45 13:45 WBC 2.7 L (3.8-10.6) k/uL RBC 2.00 L (3.80-5.40) m/uL Hgb 6.9 L* (11.4-16.0) gm/dL Hct 20.1 L (34.0-46.0) % MCV 100.4 H (80.0-100.0) fL MCH 34.2 (25.0-35.0) pg MCHC 34.1 (31.0-37.0) g/dL RDW 18.9 H (11.5-15.5) % Plt Count 73 L (150-450) k/uL Neutrophils % 83 % Lymphocytes % 9 % Monocytes % 5 % Eosinophils % 2 % Basophils % 1 % Neutrophils # 2.3 (1.3-7.7) k/uL Lymphocytes # 0.2 L (1.0-4.8) k/uL Monocytes # 0.1 (0-1.0) k/uL Eosinophils # 0.1 (0-0.7) k/uL Basophils # 0.0 (0-0.2) k/uL Manual Slide Review Performed Polychromasia Present Poikilocytosis Slight Poikilocytosis (manual Present Anisocytosis Slight Anisocytosis (manual) Present Macrocytosis Moderate PT (9.0-12.0) sec INR (<1.2) APTT (22.0-30.0) sec Sodium 135 L (137-145) mmol/L Potassium 5.3 H (3.5-5.1) mmol/L Chloride 90 L (98-107) mmol/L Carbon Dioxide 30 (22-30) mmol/L Anion Gap 15 mmol/L BUN 64 H (7-17) mg/dL Creatinine 9.11 H* (0.52-1.04) mg/dL Est GFR (CKD-EPI)AfAm 5 (>60 ml/min/1.73 sqM) Est GFR (CKD-EPI)NonAf 5 (>60 ml/min/1.73 sqM) Glucose 256 H (74-99) mg/dL Plasma Lactic Acid Micha 1.8 (0.7-2.0) mmol/L Calcium 9.0 (8.4-10.2) mg/dL Magnesium 1.7 (1.6-2.3) mg/dL Total Bilirubin 1.0 (0.2-1.3) mg/dL AST 47 H (14-36) U/L ALT 41 (9-52) U/L Alkaline Phosphatase 73 (38-126) U/L Troponin I (0.000-0.034) ng/mL NT-Pro-B Natriuret Pep pg/mL Total Protein 6.9 (6.3-8.2) g/dL Albumin 4.4 (3.5-5.0) g/dL Urine Color Urine Appearance (Clear) Urine pH (5.0-8.0) Ur Specific [place] (1.001-1.035) Urine Protein (Negative) Urine Glucose (UA) (Negative) Urine Ketones (Negative) Urine Blood (Negative) Urine Nitrite (Negative) Urine Bilirubin (Negative) Urine Urobilinogen (<2.0) mg/dL Ur Leukocyte Esterase (Negative) Urine RBC (0-5) /hpf Urine WBC (0-5) /hpf Ur Squamous Epith Cells (0-4) /hpf Amorphous Sediment (None) /hpf Urine Bacteria (None) /hpf Blood Type Blood Type Recheck Antibody Screen Spec Expiration Date 11/01/18 11/01/18 11/01/18 Range/Units 13:45 13:45 13:45 WBC (3.8-10.6) k/uL RBC (3.80-5.40) m/uL Hgb (11.4-16.0) gm/dL Hct (34.0-46.0) % MCV (80.0-100.0) fL MCH (25.0-35.0) pg MCHC (31.0-37.0) g/dL RDW (11.5-15.5) % Plt Count (150-450) k/uL Neutrophils % % Lymphocytes % % Monocytes % % Eosinophils % % Basophils % % Neutrophils # (1.3-7.7) k/uL Lymphocytes # (1.0-4.8) k/uL Monocytes # (0-1.0) k/uL Eosinophils # (0-0.7) k/uL Basophils # (0-0.2) k/uL Manual Slide Review Polychromasia Poikilocytosis Poikilocytosis (manual Anisocytosis Anisocytosis (manual) Macrocytosis PT 10.6 (9.0-12.0) sec INR 1.0 (<1.2) APTT 23.1 (22.0-30.0) sec Sodium (137-145) mmol/L Potassium (3.5-5.1) mmol/L Chloride (98-107) mmol/L Carbon Dioxide (22-30) mmol/L Anion Gap mmol/L BUN (7-17) mg/dL Creatinine (0.52-1.04) mg/dL Est GFR (CKD-EPI)AfAm (>60 ml/min/1.73 sqM) Est GFR (CKD-EPI)NonAf (>60 ml/min/1.73 sqM) Glucose (74-99) mg/dL Plasma Lactic Acid Micha (0.7-2.0) mmol/L Calcium (8.4-10.2) mg/dL Magnesium (1.6-2.3) mg/dL Total Bilirubin (0.2-1.3) mg/dL AST (14-36) U/L ALT (9-52) U/L Alkaline Phosphatase (38-126) U/L Troponin I <0.012 (0.000-0.034) ng/mL NT-Pro-B Natriuret Pep 39911 pg/mL Total Protein (6.3-8.2) g/dL Albumin (3.5-5.0) g/dL Urine Color Urine Appearance (Clear) Urine pH (5.0-8.0) Ur Specific [place] (1.001-1.035) Urine Protein (Negative) Urine Glucose (UA) (Negative) Urine Ketones (Negative) Urine Blood (Negative) Urine Nitrite (Negative) Urine Bilirubin (Negative) Urine Urobilinogen (<2.0) mg/dL Ur Leukocyte Esterase (Negative) Urine RBC (0-5) /hpf Urine WBC (0-5) /hpf Ur Squamous Epith Cells (0-4) /hpf Amorphous Sediment (None) /hpf Urine Bacteria (None) /hpf Blood Type Blood Type Recheck Antibody Screen Spec Expiration Date 11/01/18 11/01/18 Range/Units 13:45 15:30 WBC (3.8-10.6) k/uL RBC (3.80-5.40) m/uL Hgb (11.4-16.0) gm/dL Hct (34.0-46.0) % MCV (80.0-100.0) fL MCH (25.0-35.0) pg MCHC (31.0-37.0) g/dL RDW (11.5-15.5) % Plt Count (150-450) k/uL Neutrophils % % Lymphocytes % % Monocytes % % Eosinophils % % Basophils % % Neutrophils # (1.3-7.7) k/uL Lymphocytes # (1.0-4.8) k/uL Monocytes # (0-1.0) k/uL Eosinophils # (0-0.7) k/uL Basophils # (0-0.2) k/uL Manual Slide Review Polychromasia Poikilocytosis Poikilocytosis (manual Anisocytosis Anisocytosis (manual) Macrocytosis PT (9.0-12.0) sec INR (<1.2) APTT (22.0-30.0) sec Sodium (137-145) mmol/L Potassium (3.5-5.1) mmol/L Chloride (98-107) mmol/L Carbon Dioxide (22-30) mmol/L Anion Gap mmol/L BUN (7-17) mg/dL Creatinine (0.52-1.04) mg/dL Est GFR (CKD-EPI)AfAm (>60 ml/min/1.73 sqM) Est GFR (CKD-EPI)NonAf (>60 ml/min/1.73 sqM) Glucose (74-99) mg/dL Plasma Lactic Acid Micha (0.7-2.0) mmol/L Calcium (8.4-10.2) mg/dL Magnesium (1.6-2.3) mg/dL Total Bilirubin (0.2-1.3) mg/dL AST (14-36) U/L ALT (9-52) U/L Alkaline Phosphatase (38-126) U/L Troponin I (0.000-0.034) ng/mL NT-Pro-B Natriuret Pep pg/mL Total Protein (6.3-8.2) g/dL Albumin (3.5-5.0) g/dL Urine Color Light Yellow Urine Appearance Cloudy H (Clear) Urine pH 8.5 H (5.0-8.0) Ur Specific [place] 1.008 (1.001-1.035) Urine Protein 3+ H (Negative) Urine Glucose (UA) 2+ H (Negative) Urine Ketones Negative (Negative) Urine Blood Trace H (Negative) Urine Nitrite Negative (Negative) Urine Bilirubin Negative (Negative) Urine Urobilinogen <2.0 (<2.0) mg/dL Ur Leukocyte Esterase Moderate H (Negative) Urine RBC <1 (0-5) /hpf Urine WBC 38 H (0-5) /hpf Ur Squamous Epith Cells 16 H (0-4) /hpf Amorphous Sediment Rare H (None) /hpf Urine Bacteria Occasional H (None) /hpf Blood Type A Positive Blood Type Recheck No Antibody Screen NEGATIVE Spec Expiration Date 11/04/2018 0805 Disposition Clinical Impression: Anemia Disposition: ADMITTED IP TO THIS HOSP Referrals: David Bragg MD [Primary Care Provider] - 1-2 days Time of Disposition: 16:51
[2018-11-01 14:04] LABS: Anisocytosis Slight; Basophils % (A) 1 %; Eosinophils # (A) 0.1 k/uL (0-0.7); Eosinophils % (A) 2 %; HCT 20.1 % (34.0-46.0); Lymphocytes # (A) 0.2 k/uL (1.0-4.8); Lymphocytes % (A) 9 %; MCH 34.2 pg (25.0-35.0); MCHC 34.1 g/dL (31.0-37.0); MCV 100.4 fL (80.0-100.0); Macrocytosis Moderate; Mean Platelet Volume 8.8; Monocytes # (A) 0.1 k/uL (0-1.0); Monocytes % (A) 5 %; Neutrophils # (A) 2.3 k/uL (1.3-7.7); Neutrophils % (A) 83 %; Poikilocytosis Slight; RDW 18.9 % (11.5-15.5); WBC 2.7 k/uL (3.8-10.6)
[2018-11-01 14:05] LABS: Partial Thromboplastin Time 23.1 sec (22.0-30.0); Prothrombin Time 10.6 sec (9.0-12.0)
[2018-11-01 14:21] LABS: Albumin 4.4 g/dL (3.5-5.0); Magnesium 1.7 mg/dL (1.6-2.3); Potassium 5.3 mmol/L (3.5-5.1); Total Protein 6.9 g/dL (6.3-8.2)
--- NOTE | 2018-11-01 14:31 | XR ---
EXAMINATION TYPE: XR chest 2V DATE OF EXAM: 11/01/2018 COMPARISON: Prior chest x-ray 09/16/2018 HISTORY: Weakness and shortness of breath TECHNIQUE: Frontal and lateral views of the chest are obtained. FINDINGS: There is no focal air space opacity, pleural effusion, or pneumothorax seen. The cardiac silhouette size is stable and enlarged. There are overlying cardiac leads. There is a stent overlyi ng the cephalic vein region on the left. The osseous structures are intact. IMPRESSION: Stable cardiomegaly corresponding to what may be pericardial effusion.
[2018-11-01 14:44] LABS: Anisocytosis (M) Present; Poikilocytosis (M) Present; Polychromasia Present
[2018-11-01 14:45] LABS: Platelet Count 73 k/uL (150-450)
[2018-11-01 15:57] LABS: Amorphous Sediment,Urine Rare /hpf; Appearance,Urine Cloudy (Clear); Bacteria,Urine Occasional /hpf; Bilirubin,Urine Negative (Negative); Blood,Urine Trace (Negative); Color,Urine Light Yellow; Glucose,Urine (UA) 2+ (Negative); Ketones,Urine Negative (Negative); Leukocyte Esterase,Urine Moderate (Negative); Nitrite,Urine Negative (Negative); PH, Urine 8.5 (5.0-8.0); Protein,Urine 3+ (Negative); RBC,Urine <1 /hpf (0-5); Specific Gravity,Urine 1.008 (1.001-1.035); Squamous Epithelial Cell,Urine 16 /hpf (0-4); Urobilinogen,Urine <2.0 mg/dL (<2.0); WBC,Urine 38 /hpf (0-5)
[2018-11-01] MEDS ORDERED: SODIUM CHLORIDE 0.9% 1,000 ML IV ONE (16:52)
[2018-11-01] MEDS ORDERED: SEVELAMER 800 MG TAB PO PRN (19:02)
[2018-11-01] MEDS ORDERED: traMADol 50 MG TAB PO PRN (19:02)
[2018-11-01] MEDS ORDERED: PROCHLORPERAZINE 5 MG TAB PO PRN (19:02)
[2018-11-01 19:15] LABS: Anisocytosis Slight; Basophils % (A) 0 %; Eosinophils # (A) 0.1 k/uL (0-0.7); Eosinophils % (A) 3 %; Lymphocytes # (A) 0.3 k/uL (1.0-4.8); Lymphocytes % (A) 14 %; MCH 33.1 pg (25.0-35.0); MCHC 32.7 g/dL (31.0-37.0); MCV 101.3 fL (80.0-100.0); Macrocytosis Moderate; Mean Platelet Volume 8.5; Monocytes # (A) 0.1 k/uL (0-1.0); Monocytes % (A) 5 %; Neutrophils # (A) 1.8 k/uL (1.3-7.7); Neutrophils % (A) 78 %; Poikilocytosis Slight; RBC 1.94 m/uL (3.80-5.40); RDW 17.9 % (11.5-15.5); WBC 2.3 k/uL (3.8-10.6)
[2018-11-01 19:16] LABS: HCT 19.7 % (34.0-46.0); HGB 6.4 gm/dL (11.4-16.0)
[2018-11-01 19:17] LABS: Platelet Count 77 k/uL (150-450)
[2018-11-01 20:43] LABS: Glucose,Whole Blood 212 mg/dL (75-99)
[2018-11-01] MEDS: FUROSEMIDE 80 MG TAB PO SCH (21:14)
[2018-11-01] MEDS: CYCLOBENZAPRINE 10 MG TAB PO SCH (21:14)
[2018-11-01] MEDS: METOPROLOL TARTRATE 50 MG TAB PO SCH (21:14)
[2018-11-01] MEDS: GABAPENTIN 100 MG CAP PO SCH (21:14)
[2018-11-01] MEDS: HYDROcodone/APAP 5-325MG 1 EACH TAB PO PRN (21:14)
[2018-11-01] MEDS: cloNIDine HCL 0.1 MG TAB PO SCH (21:14)
[2018-11-01] MEDS: ATORVASTATIN 40 MG TAB PO SCH (21:14)
[2018-11-01] MEDS: DIAZEPAM 5 MG TAB PO SCH (21:14)
[2018-11-01] MEDS: INSULIN ASPART (NovoLOG) 100 UNIT/ML VIAL SQ SCH (21:16)
[2018-11-01] MEDS: INSULIN DETEMIR (LEVEMIR) 100 UNIT/ML SYR SQ SCH (21:17)
[2018-11-01 23:51] LABS: Glucose,Whole Blood 303 mg/dL (75-99)
[2018-11-02] MEDS ORDERED: hydrALAZINE HCL 10 MG TAB PO PRN (05:44)
[2018-11-02] MEDS: cloNIDine HCL 0.1 MG TAB PO SCH ×3 (05:52→19:41)
[2018-11-02] MEDS: LISINOPRIL 20 MG TAB PO SCH (05:52)
[2018-11-02] MEDS: amLODIPine 10 MG TAB PO SCH (05:52)
[2018-11-02] MEDS: METOPROLOL TARTRATE 50 MG TAB PO SCH ×2 (05:52→19:41)
[2018-11-02 06:51] LABS: Anisocytosis Slight; Basophils % (A) 0 %; Eosinophils # (A) 0.1 k/uL (0-0.7); Eosinophils % (A) 3 %; HCT 22.5 % (34.0-46.0); HGB 7.8 gm/dL (11.4-16.0); Lymphocytes # (A) 0.4 k/uL (1.0-4.8); Lymphocytes % (A) 15 %; MCH 34.7 pg (25.0-35.0); MCHC 34.9 g/dL (31.0-37.0); MCV 99.5 fL (80.0-100.0); Macrocytosis Slight; Mean Platelet Volume 7.7; Monocytes # (A) 0.1 k/uL (0-1.0); Monocytes % (A) 5 %; Neutrophils # (A) 2.1 k/uL (1.3-7.7); Neutrophils % (A) 77 %; RBC 2.26 m/uL (3.80-5.40); RDW 17.6 % (11.5-15.5); WBC 2.7 k/uL (3.8-10.6)
[2018-11-02 07:04] LABS: Calcium 9.1 mg/dL (8.4-10.2); Potassium 5.5 mmol/L (3.5-5.1)
[2018-11-02 07:05] LABS: Platelet Count 80 k/uL (150-450)
[2018-11-02 07:29] LABS: Glucose,Whole Blood 149 mg/dL (75-99)
[2018-11-02] MEDS: FUROSEMIDE 80 MG TAB PO SCH ×2 (07:56→19:41)
[2018-11-02] MEDS: PANTOPRAZOLE 40 MG TABLET PO SCH (07:56)
[2018-11-02] MEDS: SEVELAMER 800 MG TAB PO SCH ×3 (07:57→17:46)
[2018-11-02] MEDS: DIAZEPAM 5 MG TAB PO SCH ×2 (07:57→19:41)
[2018-11-02] MEDS: GABAPENTIN 100 MG CAP PO SCH ×3 (07:57→19:41)
[2018-11-02] MEDS: INSULIN ASPART (NovoLOG) 100 UNIT/ML VIAL SQ SCH ×7 (07:57→20:24)
[2018-11-02] MEDS ORDERED: [UNRECOGNIZED DRUG - OTHER] PO SCH (09:00)
[2018-11-02] MEDS ORDERED: hydrALAZINE HCL 20 MG/ML 1 ML VIAL IVP PRN (10:23)
--- NOTE | 2018-11-02 10:26 | P.NPCON ---
History of Present Illness - Reason for Consult end stage renal disease - History of Present Illness Reason for consultation: End-stage renal disease History of present illness: Patient is a 53-year-old female seen in renal consultation for end-stage renal disease. She is maintained on hemodialysis on a Thursday schedule. Patient presented to the hospital due to generalized weakness. She was feeling especially weak with ambulation. Patient felt as if she was anemic. When she came to the hospital her hemoglobin of 6.9 and repeat was 6.4. She has received a unit of blood transfusion. Hemoglobin 7.8 today. She denies any active bleeding. No melena or hematochezia. No hematuria. No vomiting or diarrhea. Denies active chest pain or shortness of breath. Last hemodialysis was on Thursday. Patient has history of diastolic CHF with moderate tricuspid regurgitation and pulmonary hypertension. She also has history of pericardial effusion. No abdominal pain. Blood pressures have been high. Patient's hydralazine was discontinued last admission due to concern for causing the pericardial effusion. However anti-histone antibodies were negative. Vital signs are stable. General: The patient appeared well nourished and normally developed. HEENT: Head exam is unremarkable. Neck is without jugular venous distension. LUNGS: Breath sounds decreased. HEART: Rate and Rhythm are regular. First and second heart sounds normal. No murmurs, rubs or gallops. ABDOMEN: Abdominal exam reveals normal bowel sounds. Non-tender and non- distended. No evidence of peritonitis. EXTREMITITES: No clubbing, cyanosis, or edema. 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 hemodialysis for acute kidney injury 2 months in 2009 after pancreatic OR, 11/2015 diagnosed w/ chronic kidney disease-hemodialysis //-last hemodialysis 07-10-18, IDDM type II, past DKA, pt states she has dry heaves day after dialysis, UTI, chronic anemia, frequent body cramping, occasional low back pain, carter's palsy x2, past L leg fx, possible liver disease-recent liver bx-results unknown per pt. History of Any Multi-Drug Resistant Organisms: None Reported Past Surgical History: Orthopedic Surgery, Uterine Ablation Additional Past Surgical History / Comment(s): Recent liver biopsy done at [facility] but pt states they have never contacted her with the results, 08/26/17 colonoscopy with polypectomy/bx, pancreatic resection at [facility] 2009, bone marrow biopsies X2-last one 05/19/16,. dialysis chest port x 2 with removals, Left arm shunt placement for dialysis - December 2015 and a revision done with shunt. Past Anesthesia/Blood Transfusion Reactions: No Reported Reaction Additional Past Anesthesia/Blood Transfusion Reaction / Comment(s): Pt has received blood transfusions without reaction. Past Psychological History: No Psychological Hx Reported Additional Psychological History / Comment(s): Pt resides at her mother in laws home at this time with spouse. They are her mother in laws caretakers. She is independent. She uses no assistive device. She drives. Smoking Status: Never smoker Past Alcohol Use History: None Reported Additional Past Alcohol Use History / Comment(s): Patient is a lifelong nonsmoker. Past Drug Use History: None Reported - Past Family History Brother(s) Family Medical History: No Reported History Mother Family Medical History: Cancer, Diabetes Mellitus, Hypertension Additional Family Medical History / Comment(s): Mother of throat cancer at the age of 63 yrs. She was a smoker. Father Family Medical History: Coronary Artery Disease (CAD), Hyperlipidemia, Hypertension Additional Family Medical History / Comment(s): Father is 70 yrs old. Medications and Allergies Home Medications Medication Instructions Recorded Confirmed Type Atorvastatin [Lipitor] 40 mg PO HS 09/14/15 11/01/18 History Cyclobenzaprine [Flexeril] 10 mg PO HS 09/14/15 11/01/18 History Insulin Glargine [Lantus] 70 unit SQ HS 04/18/16 11/01/18 History cloNIDine HCL 0.3 mg PO TID 12/16/16 11/01/18 History rOPINIRole HCL [Requip] 1 mg PO TID 02/07/17 11/01/18 History Sevelamer [Renvela] 800 mg PO DAILY PRN 08/21/17 11/01/18 History HYDROcodone/APAP 5-325MG [[place] 1 tab PO Q8HR PRN #45 tab 09/24/17 11/01/18 Rx 5-325] amLODIPine [Norvasc] 10 mg PO DAILY 10/06/17 11/01/18 History Furosemide [Lasix] 80 mg PO BID 10/22/17 11/01/18 History Metoprolol Tartrate [Lopressor] 50 mg PO BID 10/22/17 11/01/18 History Prochlorperazine [Compazine] 5 mg PO BID PRN 10/26/17 11/01/18 History Diazepam [Valium] 5 mg PO BID 02/10/18 11/01/18 History Sevelamer [Renvela] 2,400 mg PO AC-TID 03/13/18 11/01/18 History Gabapentin [Neurontin] 100 mg PO TID 05/17/18 11/01/18 History INSULIN LISPRO (humaLOG) [humaLOG] See Protocol SQ AC-TID 05/17/18 11/01/18 History INSULIN LISPRO (humaLOG) [humaLOG] 18 unit SQ AC-TID 07/12/18 11/01/18 History Lisinopril [Zestril] 20 mg PO DAILY 11/01/18 11/01/18 History Omeprazole 20 mg PO DAILY 11/01/18 11/01/18 History [place]atal[place] 1 tab PO DAILY 11/01/18 11/01/18 History traMADol HCL [Ultram] 50 mg PO Q4HR PRN 11/01/18 11/01/18 History Allergies Allergy/AdvReac Type Severity Reaction Status Date / Time ciprofloxacin [From Cipro] AdvReac AFFECTED Verified 11/01/18 13:27 EYESIGHT ciprofloxacin HCl AdvReac AFFECTED Verified 11/01/18 13:27 [From Cipro] EYESIGHT Iodinated Contrast- Oral and AdvReac RENAL Verified 11/01/18 13:27 IV Dye FAILURE Physical Exam Vitals: Vital Signs Temp Pulse Pulse Resp BP BP Pulse Ox 11/02/18 05:00 97.7 F 64 18 202/87 92 L 11/02/18 03:59 180/78 11/02/18 01:30 98.5 F 72 18 181/79 92 L 11/01/18 22:48 98.5 F 65 18 184/80 11/01/18 22:18 98.5 F 68 18 180/69 11/01/18 22:08 98.2 F 69 18 193/79 06/24/19 22:05 98.6 F 71 18 193/73 11/01/18 21:00 98.0 F 70 18 196/77 96 11/01/18 18:18 97.8 F 64 16 199/84 99 11/01/18 17:00 98.0 F 63 18 184/80 100 11/01/18 13:01 98.9 F 81 18 218/77 97 Intake and Output 11/01/18 11/02/18 11/02/18 22:59 06:59 14:59 Intake Total 500 760 Balance 500 760 Intake: Oral 500 450 Blood Product 0 310 Rc Irr As1 Unit 0 310 [id number] Other: # Voids 2 2 Weight 79.2 kg Results - Lab Results Most recent lab results Calcium 9.1 mg/dL (8.4-10.2) 11/02/18 06:25 Magnesium 1.7 mg/dL (1.6-2.3) 11/01/18 13:45 11/02/18 06:25 11/02/18 06:25 Assessment and Plan Plan: Assessment: 1. End-stage renal disease maintained on hemodialysis on a Thursday schedule. 2. Acute blood loss anemia status post blood transfusion. No active bleeding noted. Patient has had extensive workup with hematology and GI in the past with no obvious bleeding source noted. 3. Hypertension with chronic kidney disease. Expect improvement postdialysis. 4. Diastolic CHF with moderate tricuspid regurgitation and pulmonary hypertension. 5. Pericardial effusion. 6. Chronic kidney disease mineral bone disease maintained on Renvela. 7. Insulin-dependent diabetes mellitus. Plan: Hemodialysis today with goal 4 L ultrafiltration. Maintain current antihypertensives. I will add hydralazine as needed for systolic blood pressure greater than 160. Add Aranesp.
[2018-11-02] MEDS ORDERED: DARBEPOETIN ALFA 40 MCG/0.4 ML SYRINGE SQ SCH (11:00)
--- NOTE | 2018-11-02 11:29 | P.HPIM ---
History of Present Illness H&P Date: 11/02/18 Chief Complaint: Generalized weakness This is a 53-year-old female with history of end-stage kidney disease on hemodialysis, chronic anemia, hypertension, moderate tricuspid regurgitation, pulmonary hypertension, diastolic CHF, pericardial effusion, diabetes mellitus and multiple other medical issues presented to the ER with complaints of generalized weakness with suspected anemia. Denies bleeding, melena, hemoptysis, hematochezia. Denies nausea vomiting or diarrhea. Denies abdominal pain. Denies fever or chills. Received hemodialysis Thursday and Saturdays with last dialysis completed on Thursday.Denies extremity edema. Hemoglobin on admission 6.9, repeat 6.4. Status post 1 unit of packed RBCs. Post transfusion hemoglobin 7.8. Platelets 77 on admission, up to 80 Afebrile, Hypertensive, scheduled for hemodialysis today. Creatinine 10. Denies back pain, Denies chest pain, palpitations. WBC 2.7, neutrophils 77. Elevated blood sugars, UA reporting a squamous epithelial cells, WBCs and moderate leukocytes, +3 protein. EKG reporting normal sinus rhythm, troponin negative. Chest x-ray reporting stable cardiomegaly, possible pericardial effusion. Review of Systems ROS Statement: Those systems with pertinent positive or pertinent negative responses have been documented in the HPI. ROS Other: All systems not noted in ROS Statement are negative. 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 hemodialysis for acute kidney injury 2 months in 2009 after pancreatic OR, 11/2015 diagnosed w/ chronic kidney disease-hemodialysis -last hemodialysis 07-10-18, IDDM type II, past DKA, pt states she has dry heaves day after dialysis, UTI, chronic anemia, frequent body cramping, occasional low back pain, carter's palsy x2, past L leg fx, possible liver disease-recent liver bx-results unknown per pt. History of Any Multi-Drug Resistant Organisms: None Reported Past Surgical History: Orthopedic Surgery, Uterine Ablation Additional Past Surgical History / Comment(s): Recent liver biopsy done at [place] but pt states they have never contacted her with the results, 08/26/17 colonoscopy with polypectomy/bx, pancreatic resection at [facility] 2009, bone marrow biopsies X2-last one 05/19/16,. dialysis chest port x 2 with removals, Left arm shunt placement for dialysis - December 2015 and a revision done with shunt. Past Anesthesia/Blood Transfusion Reactions: No Reported Reaction Additional Past Anesthesia/Blood Transfusion Reaction / Comment(s): Pt has received blood transfusions without reaction. Past Psychological History: No Psychological Hx Reported Additional Psychological History / Comment(s): Pt resides at her mother in laws home at this time with spouse. They are her mother in laws caretakers. She is independent. She uses no assistive device. She drives. Smoking Status: Never smoker Past Alcohol Use History: None Reported Additional Past Alcohol Use History / Comment(s): Patient is a lifelong nonsmoker. Past Drug Use History: None Reported - Past Family History Brother(s) Family Medical History: No Reported History Mother Family Medical History: Cancer, Diabetes Mellitus, Hypertension Additional Family Medical History / Comment(s): Mother of throat cancer at the age of 63 yrs. She was a smoker. Father Family Medical History: Coronary Artery Disease (CAD), Hyperlipidemia, Hypertension Additional Family Medical History / Comment(s): Father is 70 yrs old. Medications and Allergies Home Medications Medication Instructions Recorded Confirmed Type Atorvastatin [Lipitor] 40 mg PO HS 09/14/15 11/01/18 History Cyclobenzaprine [Flexeril] 10 mg PO HS 09/14/15 11/01/18 History Insulin Glargine [Lantus] 70 unit SQ HS 04/18/16 11/01/18 History cloNIDine HCL 0.3 mg PO TID 12/16/16 11/01/18 History rOPINIRole HCL [Requip] 1 mg PO TID 02/07/17 11/01/18 History Sevelamer [Renvela] 800 mg PO DAILY PRN 08/21/17 11/01/18 History HYDROcodone/APAP 5-325MG [[place] 1 tab PO Q8HR PRN #45 tab 09/24/17 11/01/18 Rx 5-325] amLODIPine [Norvasc] 10 mg PO DAILY 10/06/17 11/01/18 History Furosemide [Lasix] 80 mg PO BID 10/22/17 11/01/18 History Metoprolol Tartrate [Lopressor] 50 mg PO BID 10/22/17 11/01/18 History Prochlorperazine [Compazine] 5 mg PO BID PRN 10/26/17 11/01/18 History Diazepam [Valium] 5 mg PO BID 02/10/18 11/01/18 History Sevelamer [Renvela] 2,400 mg PO AC-TID 03/13/18 11/01/18 History Gabapentin [Neurontin] 100 mg PO TID 05/17/18 11/01/18 History INSULIN LISPRO (humaLOG) [humaLOG] See Protocol SQ AC-TID 05/17/18 11/01/18 History INSULIN LISPRO (humaLOG) [humaLOG] 18 unit SQ AC-TID 07/12/18 11/01/18 History Lisinopril [Zestril] 20 mg PO DAILY 11/01/18 11/01/18 History Omeprazole 20 mg PO DAILY 11/01/18 11/01/18 History [place]-Natalie 1 tab PO DAILY 11/01/18 11/01/18 History traMADol HCL [Ultram] 50 mg PO Q4HR PRN 11/01/18 11/01/18 History Allergies Allergy/AdvReac Type Severity Reaction Status Date / Time ciprofloxacin [From Cipro] AdvReac AFFECTED Verified 11/01/18 13:27 EYESIGHT ciprofloxacin HCl AdvReac AFFECTED Verified 11/01/18 13:27 [From Cipro] EYESIGHT Iodinated Contrast- Oral and AdvReac RENAL Verified 11/01/18 13:27 IV Dye FAILURE Physical Exam Vitals: Vital Signs Temp Pulse Pulse Resp BP BP Pulse Ox 11/02/18 05:00 97.7 F 64 18 202/87 92 L 11/02/18 03:59 180/78 11/02/18 01:30 98.5 F 72 18 181/79 92 L 11/01/18 22:48 98.5 F 65 18 184/80 11/01/18 22:18 98.5 F 68 18 180/69 11/01/18 22:08 98.2 F 69 18 193/79 11/01/18 22:05 98.6 F 71 18 193/73 11/01/18 21:00 98.0 F 70 18 196/77 96 11/01/18 18:18 97.8 F 64 16 199/84 99 11/01/18 17:00 98.0 F 63 18 184/80 100 11/01/18 13:01 98.9 F 81 18 218/77 97 Intake and Output 11/01/18 11/02/18 11/02/18 22:59 06:59 14:59 Intake Total 500 760 Balance 500 760 Intake: Oral 500 450 Blood Product 0 310 Rc Irr As1 Unit 0 310 [id number] Other: # Voids 2 2 Weight 79.2 kg PHYSICAL EXAM: VITAL SIGNS: As above GENERAL: Sitting up in bed, no acute distress HEENT: Conjunctivae normal. eyes normal. Oral mucosa moist NECK: No JVD. No thyroid enlargement. No LNs CARDIOVASCULAR: S1, S2 regular. no murmur RESPIRATION: Nonlabored, Breath sounds diminished in the bases. No rhonchi or crackles. No bronchial breathing. ABDOMEN: Soft, nondistended, nontender . No guarding. no masses palpable.Bowel sounds heard. LEGS: No edema. no swelling. No cyanosis, clubbing. PSYCHIATRY: Alert and oriented X3, mood and affect normal. NERVOUS SYSTEM: Cranial N 2-12 grossly normal. Moves all 4 limbs. Diffuse weakness No focal deficits. Strength and sensation grossly intact.. Skin: no lesions, no rash Lymphatic system. No LN neck axilla or groin. Results CBC & Chem 7: 11/02/18 06:25 11/02/18 06:25 Labs: Abnormal Lab Results - Last 24 Hours (Table) 11/01/18 11/01/18 11/01/18 Range/Units 13:45 13:45 13:45 WBC 2.7 L (3.8-10.6) k/uL RBC 2.00 L (3.80-5.40) m/uL Hgb 6.9 L* (11.4-16.0) gm/dL Hct 20.1 L (34.0-46.0) % MCV 100.4 H (80.0-100.0) fL RDW 18.9 H (11.5-15.5) % Plt Count 73 L (150-450) k/uL Lymphocytes # 0.2 L (1.0-4.8) k/uL Sodium 135 L (137-145) mmol/L Potassium 5.3 H (3.5-5.1) mmol/L Chloride 90 L (98-107) mmol/L Carbon Dioxide (22-30) mmol/L BUN 64 H (7-17) mg/dL Creatinine 9.11 H* (0.52-1.04) mg/dL Glucose 256 H (74-99) mg/dL POC Glucose (mg/dL) (75-99) mg/dL AST 47 H (14-36) U/L Urine Appearance (Clear) Urine pH (5.0-8.0) Urine Protein (Negative) Urine Glucose (UA) (Negative) Urine Blood (Negative) Ur Leukocyte Esterase (Negative) Urine WBC (0-5) /hpf Ur Squamous Epith Cells (0-4) /hpf Amorphous Sediment (None) /hpf Urine Bacteria (None) /hpf Crossmatch See Detail 11/01/18 11/01/18 11/01/18 Range/Units 15:30 18:24 20:39 WBC 2.3 L (3.8-10.6) k/uL RBC 1.94 L (3.80-5.40) m/uL Hgb 6.4 L* (11.4-16.0) gm/dL Hct 19.7 L* (34.0-46.0) % MCV 101.3 H (80.0-100.0) fL RDW 17.9 H (11.5-15.5) % Plt Count 77 L (150-450) k/uL Lymphocytes # 0.3 L (1.0-4.8) k/uL Sodium (137-145) mmol/L Potassium (3.5-5.1) mmol/L Chloride (98-107) mmol/L Carbon Dioxide (22-30) mmol/L BUN (7-17) mg/dL Creatinine (0.52-1.04) mg/dL Glucose (74-99) mg/dL POC Glucose (mg/dL) 212 H (75-99) mg/dL AST (14-36) U/L Urine Appearance Cloudy H (Clear) Urine pH 8.5 H (5.0-8.0) Urine Protein 3+ H (Negative) Urine Glucose (UA) 2+ H (Negative) Urine Blood Trace H (Negative) Ur Leukocyte Esterase Moderate H (Negative) Urine WBC 38 H (0-5) /hpf Ur Squamous Epith Cells 16 H (0-4) /hpf Amorphous Sediment Rare H (None) /hpf Urine Bacteria Occasional H (None) /hpf Crossmatch 11/01/18 11/02/18 11/02/18 Range/Units 23:48 06:25 06:25 WBC 2.7 L (3.8-10.6) k/uL RBC 2.26 L (3.80-5.40) m/uL Hgb 7.8 L (11.4-16.0) gm/dL Hct 22.5 L (34.0-46.0) % MCV (80.0-100.0) fL RDW 17.6 H (11.5-15.5) % Plt Count 80 L (150-450) k/uL Lymphocytes # 0.4 L (1.0-4.8) k/uL Sodium 136 L (137-145) mmol/L Potassium 5.5 H (3.5-5.1) mmol/L Chloride 92 L (98-107) mmol/L Carbon Dioxide 31 H (22-30) mmol/L BUN 80 H (7-17) mg/dL Creatinine 10.01 H* (0.52-1.04) mg/dL Glucose 133 H (74-99) mg/dL POC Glucose (mg/dL) 303 H (75-99) mg/dL AST (14-36) U/L Urine Appearance (Clear) Urine pH (5.0-8.0) Urine Protein (Negative) Urine Glucose (UA) (Negative) Urine Blood (Negative) Ur Leukocyte Esterase (Negative) Urine WBC (0-5) /hpf Ur Squamous Epith Cells (0-4) /hpf Amorphous Sediment (None) /hpf Urine Bacteria (None) /hpf Crossmatch 11/02/18 Range/Units 07:09 WBC (3.8-10.6) k/uL RBC (3.80-5.40) m/uL Hgb (11.4-16.0) gm/dL Hct (34.0-46.0) % MCV (80.0-100.0) fL RDW (11.5-15.5) % Plt Count (150-450) k/uL Lymphocytes # (1.0-4.8) k/uL Sodium (137-145) mmol/L Potassium (3.5-5.1) mmol/L Chloride (98-107) mmol/L Carbon Dioxide (22-30) mmol/L BUN (7-17) mg/dL Creatinine (0.52-1.04) mg/dL Glucose (74-99) mg/dL POC Glucose (mg/dL) 149 H (75-99) mg/dL AST (14-36) U/L Urine Appearance (Clear) Urine pH (5.0-8.0) Urine Protein (Negative) Urine Glucose (UA) (Negative) Urine Blood (Negative) Ur Leukocyte Esterase (Negative) Urine WBC (0-5) /hpf Ur Squamous Epith Cells (0-4) /hpf Amorphous Sediment (None) /hpf Urine Bacteria (None) /hpf Crossmatch Thrombosis Risk Factor Assmnt - Choose All That Apply Any of the Below Risk Factors Present?: Yes Each Factor Represents 1 point: Age 41-60 years, Obesity (BMI >25) Other Risk Factors: No Other congenital or acquired thrombophilia - If yes, enter type in comment: No Thrombosis Risk Factor Assessment Total Risk Factor Score: 2 Thrombosis Risk Factor Assessment Level: Low Risk Assessment and Plan Assessment: -Acute blood loss anemia, status post transfusion 1 unit packed RBCs, etiology unclear. Reports last colonoscopy 1 year ago. EGD multiple years ago. -End-stage renal disease on hemodialysis Thursday -Hypertension -Diabetes mellitus -Moderate tricuspid regurgitation -Pulmonary hypertension -Diastolic CHF, chronic -History of pericardial effusion Plan: Continue current medication regime ,monitoring and symptomatic treatment. Scheduled for hemodialysis today. Serial CBCs.Nephrology, GI, hematology consulted. Home meds have been reviewed and resumeFurther recommendations to follow. The impression and plan of care has been dictated as directed. : I performed a history and examination of this patient, discussed the same with the dictator. I agree with the dictator's note ,documented as a scribe. Any additional findings or plans will be noted. Time taken: 35 minutes
[2018-11-02 12:27] LABS: Glucose,Whole Blood 141 mg/dL (75-99)
--- NOTE | 2018-11-02 13:00 | P.CONS ---
History of Present Illness - Reason for Consult Consult date: 11/02/18 Anemia Requesting physician: David Bragg - Chief Complaint Weakness - History of Present Illness 53-year-old female with a history of end-stage kidney disease hemodialysis dependent Thursday, history of pancytopenia, pancreatic surgery secondary necrotizing pancreatitis hypertriglyceridemia, diabetes mellitus, diastolic CHF, pulmonary hypertension, hypertension, chronic anemia presents with weakness. Patient denies overt bleeding such as hematemesis hematochezia or melena however she's expressing intermittent nosebleeds and hemoptysis. Colonoscopy 2018 few polyps removed. No recent EGD. Admission hemoglobin 6.9 decreased to 6.4 presently 7.8. Received 1 unit of blood. MCV 100. Platelets 73,000. INR 1.0. BUN 64. Creatinine 9.1. No aspirin and NSAIDs or antiplatelet medications. Denies abdominal pain. Review of Systems Constitutional: Denies fever, chills, sweats, weight gain, or loss. HEENT: Negative for migraines, blurred vision or loss, earaches, drainage, tinnitus, oral mucosal lesions, dysphagia, or odynophagia. CARDIAC: Negative for chest pain, arrhythmias, or palpitation. RESPIRATORY: Negative for shortness of breath, hemoptysis, cough, or sputum production. GI: See HPI for pertinent findings. : Negative for hematuria, urgency, frequency, polyuria, or dysuria. GYNc: Denies possibility of . Negative vaginal discharge. MUSCULOSKELETAL: Negative for muscle aches, swelling, arthritis, and arthralgias. NEUROLOGIC: Negative for stroke or TIA. ENDOCRINE: Negative for thyroid problems. SKIN: Negative for rash or itching. PSYCHIATRIC: Negative history for depression and anxiety Past Medical History Past Medical History: Blood Disorder, Heart Failure, Diabetes Mellitus, Dialysis, Hyperlipidemia, Hypertension, Liver Disease, Pneumonia, Renal Disease Additional Past Medical History / Comment(s): Bilateral cataracts, recently diagnosed with bilateral retinal hemorrhages, hypertriglyceridemia-induced acute pancreatitis, THEN necrotizing pancreatitis. hemodialysis for acute kidney inj ury 2 months in 2009 after pancreatic OR, 11/2015 diagnosed w/ chronic kidney disease-hemodialysis -last hemodialysis 07-10-18, IDDM type II, past DKA, pt states she has dry heaves day after dialysis, UTI, chronic anemia, frequent body cramping, occasional low back pain, carter's palsy x2, past L leg fx, possible liver disease-recent liver bx-results unknown per pt. History of Any Multi-Drug Resistant Organisms: None Reported Past Surgical History: Orthopedic Surgery, Uterine Ablation Additional Past Surgical History / Comment(s): Recent liver biopsy done at [place] but pt states they have never contacted her with the results, 08/26/17 colonoscopy with polypectomy/bx, pancreatic resection at [facility] 2009, bone marrow biopsies X2-last one 05/19/16,. dialysis chest port x 2 with removals, Left arm shunt placement for dialysis - December 2015 and a revision done with shunt. Past Anesthesia/Blood Transfusion Reactions: No Reported Reaction Additional Past Anesthesia/Blood Transfusion Reaction / Comm: Pt has received blood transfusions without reaction. Past Psychological History: No Psychological Hx Reported Additional Psychological History / Comment(s): Pt resides at her mother in laws home at this time with spouse. They are her mother in laws caretakers. She is independent. She uses no assistive device. She drives. Smoking Status: Never smoker Past Alcohol Use History: None Reported Additional Past Alcohol Use History / Comment(s): Patient is a lifelong nonsmoker. Past Drug Use History: None Reported - Past Family History Brother(s) Family Medical History: No Reported History Mother Family Medical History: Cancer, Diabetes Mellitus, Hypertension Additional Family Medical History / Comment(s): Mother of throat cancer at the age of 63 yrs. She was a smoker. Father Family Medical History: Coronary Artery Disease (CAD), Hyperlipidemia, H ypertension Additional Family Medical History / Comment(s): Father is 70 yrs old. Medications and Allergies Home Medications Medication Instructions Recorded Confirmed Type Atorvastatin [Lipitor] 40 mg PO HS 09/14/15 11/01/18 History Cyclobenzaprine [Flexeril] 10 mg PO HS 09/14/15 11/01/18 History Insulin Glargine [Lantus] 70 unit SQ HS 04/18/16 11/01/18 History cloNIDine HCL 0.3 mg PO TID 12/16/16 11/01/18 History rOPINIRole HCL [Requip] 1 mg PO TID 02/07/17 11/01/18 History Sevelamer [Renvela] 800 mg PO DAILY PRN 08/21/17 11/01/18 History HYDROcodone/APAP 5-325MG [[place] 1 tab PO Q8HR PRN #45 tab 09/24/17 11/01/18 Rx 5-325] amLODIPine [Norvasc] 10 mg PO DAILY 10/06/17 11/01/18 History Furosemide [Lasix] 80 mg PO BID 10/22/17 11/01/18 History Metoprolol Tartrate [Lopressor] 50 mg PO BID 10/22/17 11/01/18 History Prochlorperazine [Compazine] 5 mg PO BID PRN 10/26/17 11/01/18 History Diazepam [Valium] 5 mg PO BID 02/10/18 11/01/18 History Sevelamer [Renvela] 2,400 mg PO AC-TID 03/13/18 11/01/18 History Gabapentin [Neurontin] 100 mg PO TID 05/17/18 11/01/18 History INSULIN LISPRO (humaLOG) [humaLOG] See Protocol SQ AC-TID 05/17/18 11/01/18 History INSULIN LISPRO (humaLOG) [humaLOG] 18 unit SQ AC-TID 07/12/18 11/01/18 History Lisinopril [Zestril] 20 mg PO DAILY 11/01/18 11/01/18 History Omeprazole 20 mg PO DAILY 11/01/18 11/01/18 History [place]-Natalie 1 tab PO DAILY 11/01/18 11/01/18 History traMADol HCL [Ultram] 50 mg PO Q4HR PRN 11/01/18 11/01/18 History Allergies Allergy/AdvReac Type Severity Reaction Status Date / Time ciprofloxacin [From Cipro] AdvReac AFFECTED Verified 11/01/18 13:27 EYESIGHT ciprofloxacin HCl AdvReac AFFECTED Verified 11/01/18 13:27 [From Cipro] EYESIGHT Iodinated Contrast- Oral and AdvReac RENAL Verified 11/01/18 13:27 IV Dye FAILURE Physical Exam Vitals: Vital Signs Temp Pulse Pulse Resp BP BP Pulse Ox 11/02/18 11:02 166/76 11/02/18 05:00 97.7 F 64 18 202/87 92 L 11/02/18 03:59 180/78 11/02/18 01:30 98.5 F 72 18 181/79 92 L 11/01/18 22:48 98.5 F 65 18 184/80 11/01/18 22:18 98.5 F 68 18 180/69 11/01/18 22:08 98.2 F 69 18 193/79 11/01/18 22:05 98.6 F 71 18 193/73 11/01/18 21:00 98.0 F 70 18 196/77 96 11/01/18 18:18 97.8 F 64 16 199/84 99 11/01/18 17:00 98.0 F 63 18 184/80 100 11/01/18 13:01 98.9 F 81 18 218/77 97 Intake and Output 11/01/18 11/02/18 11/02/18 22:59 06:59 14:59 Intake Total 500 760 Balance 500 760 Intake: Oral 500 450 Blood Product 0 310 Rc Irr As1 Unit 0 310 [id number] Other: # Voids 2 2 0 Weight 79.2 kg General appearance: The patient is alert, oriented, in no acute distress. HET: Head is normocephalic and atraumatic. Pupils are equal and reactive. Oropharynx is clear without lesions. Neck: Supple without lymphadenopathy. Trachea midline. Heart: S1 S2. Regular rate and rhythm. Lungs: No crackles or wheezes are heard. Abdomen: Soft, nontender, nondistended with bowel sounds. No peritoneal signs. No palpable organomegaly or masses. Extremities: Normal skin color and turgor. No cyanosis, rash, ulceration, clubbing, or edema. Radial and pedal pulses are 2/4 bilaterally. Neurological: No focal deficits. Strength and sensation are grossly intact. Results CBC & Chem 7: 11/03/18 08:33 11/03/18 08:33 Labs: Abnormal Lab Results - Last 24 Hours (Table) 11/01/18 11/01/18 11/01/18 Range/Units 13:45 13:45 13:45 WBC 2.7 L (3.8-10.6) k/uL RBC 2.00 L (3.80-5.40) m/uL Hgb 6.9 L* (11.4-16.0) gm/dL Hct 20.1 L (34.0-46.0) % MCV 100.4 H (80.0-100.0) fL RDW 18.9 H (11.5-15.5) % Plt Count 73 L (150-450) k/uL Lymphocytes # 0.2 L (1.0-4.8) k/uL Sodium 135 L (137-145) mmol/L Potassium 5.3 H (3.5-5.1) mmol/L Chloride 90 L (98-107) mmol/L Carbon Dioxide (22-30) mmol/L BUN 64 H (7-17) mg/dL Creatinine 9.11 H* (0.52-1.04) mg/dL Glucose 256 H (74-99) mg/dL POC Glucose (mg/dL) (75-99) mg/dL AST 47 H (14-36) U/L Urine Appearance (Clear) Urine pH (5.0-8.0) Urine Protein (Negative) Urine Glucose (UA) (Negative) Urine Blood (Negative) Ur Leukocyte Esterase (Negative) Urine WBC (0-5) /hpf Ur Squamous Epith Cells (0-4) /hpf Amorphous Sediment (None) /hpf Urine Bacteria (None) /hpf Crossmatch See Detail 11/01/18 11/01/18 11/01/18 Range/Units 15:30 18:24 20:39 WBC 2.3 L (3.8-10.6) k/uL RBC 1.94 L (3.80-5.40) m/uL Hgb 6.4 L* (11.4-16.0) gm/dL Hct 19.7 L* (34.0-46.0) % MCV 101.3 H (80.0-100.0) fL RDW 17.9 H (11.5-15.5) % Plt Count 77 L (150-450) k/uL Lymphocytes # 0.3 L (1.0-4.8) k/uL Sodium (137-145) mmol/L Potassium (3.5-5.1) mmol/L Chloride (98-107) mmol/L Carbon Dioxide (22-30) mmol/L BUN (7-17) mg/dL Creatinine (0.52-1.04) mg/dL Glucose (74-99) mg/dL POC Glucose (mg/dL) 212 H (75-99) mg/dL AST (14-36) U/L Urine Appearance Cloudy H (Clear) Urine pH 8.5 H (5.0-8.0) Urine Protein 3+ H (Negative) Urine Glucose (UA) 2+ H (Negative) Urine Blood Trace H (Negative) Ur Leukocyte Esterase Moderate H (Negative) Urine WBC 38 H (0-5) /hpf Ur Squamous Epith Cells 16 H (0-4) /hpf Amorphous Sediment Rare H (None) /hpf Urine Bacteria Occasional H (None) /hpf Crossmatch 11/01/18 11/02/18 11/02/18 Range/Units 23:48 06:25 06:25 WBC 2.7 L (3.8-10.6) k/uL RBC 2.26 L (3.80-5.40) m/uL Hgb 7.8 L (11.4-16.0) gm/dL Hct 22.5 L (34.0-46.0) % MCV (80.0-100.0) fL RDW 17.6 H (11.5-15.5) % Plt Count 80 L (150-450) k/uL Lymphocytes # 0.4 L (1.0-4.8) k/uL Sodium 136 L (137-145) mmol/L Potassium 5.5 H (3.5-5.1) mmol/L Chloride 92 L (98-107) mmol/L Carbon Dioxide 31 H (22-30) mmol/L BUN 80 H (7-17) mg/dL Creatinine 10.01 H* (0.52-1.04) mg/dL Glucose 133 H (74-99) mg/dL POC Glucose (mg/dL) 303 H (75-99) mg/dL AST (14-36) U/L Urine Appearance (Clear) Urine pH (5.0-8.0) Urine Protein (Negative) Urine Glucose (UA) (Negative) Urine Blood (Negative) Ur Leukocyte Esterase (Negative) Urine WBC (0-5) /hpf Ur Squamous Epith Cells (0-4) /hpf Amorphous Sediment (None) /hpf Urine Bacteria (None) /hpf Crossmatch 11/02/18 11/02/18 Range/Units 07:09 12:23 WBC (3.8-10.6) k/uL RBC (3.80-5.40) m/uL Hgb (11.4-16.0) gm/dL Hct (34.0-46.0) % MCV (80.0-100.0) fL RDW (11.5-15.5) % Plt Count (150-450) k/uL Lymphocytes # (1.0-4.8) k/uL Sodium (137-145) mmol/L Potassium (3.5-5.1) mmol/L Chloride (98-107) mmol/L Carbon Dioxide (22-30) mmol/L BUN (7-17) mg/dL Creatinine (0.52-1.04) mg/dL Glucose (74-99) mg/dL POC Glucose (mg/dL) 149 H 141 H (75-99) mg/dL AST (14-36) U/L Urine Appearance (Clear) Urine pH (5.0-8.0) Urine Protein (Negative) Urine Glucose (UA) (Negative) Urine Blood (Negative) Ur Leukocyte Esterase (Negative) Urine WBC (0-5) /hpf Ur Squamous Epith Cells (0-4) /hpf Amorphous Sediment (None) /hpf Urine Bacteria (None) /hpf Crossmatch Assessment and Plan (1) Chronic anemia Narrative/Plan: 53-year-old female presents with weakness and acute on chronic anemia without overt GI bleeding such as hematemesis hematochezia or melena. Suspect anemia of chronic disease patient is reporting epistaxis and hemoptysis which could be contributing to mild component of acute blood loss anemia. Current Visit: Yes Status: Acute Code(s): D64.9 - ANEMIA, UNSPECIFIED SNOMED Code(s): 877787759 (2) End stage renal disease Current Visit: Yes Status: Acute Code(s): N18.6 - END STAGE RENAL DISEASE SNOMED Code(s): 53361184 Plan: 1. CBC monitoring. If she manifests active GI bleeding such as hematemesis hematochezia or melena will proceed accordingly. Transfusions as indicated. Nephrology following closely. Inpatient endoscopic exams not planned at this time. Hematology consult recommended. We'll follow with you. Thank you for this kind referral and the opportunity to participate in the care of your patient. This consultation was discussed with Dr. Leach. The impression and plan of care have been directed as dictated.
[2018-11-02] MEDS: HYDROcodone/APAP 5-325MG 1 EACH TAB PO PRN ×2 (13:06→21:45)
--- NOTE | 2018-11-02 15:31 | P.CONS ---
History of Present Illness - Reason for Consult Consult date: 11/02/18 pancytopenia Requesting physician: Mallory Barger - Chief Complaint weakness - History of Present Illness Ms. Desouza is a very pleasant female treated by cash management clerk Dr. Arguelles from [facility], though she has not seen him for over a year, she states he told her there was nothing from Hematology standpoint to do. She had been seen by Dr. De in 2009- for low blood counts, bone marrow was done (actually twice, 2010 and 2016) with no marrow malignancy, some dyspoetic changes. She was seen inpatient in 2014, she was admitted sepsis and she developed pancytopenia, which was felt to be due to sepsis, with counts showing improvement as she recovered. She has multiple comorbid conditions including pancreatitis, instances of acute on chronic renal failure, HD, she has had PRBC transfusions in the past. Pt had c/o progressive weakness, inability to stay awake for the last 3 days, since admit she states she is still really tired, denied fever, nausea, cough, abd pain, dysuria, diarrhea, bleeding, swelling or pain. Review of Systems 14 point ROS is negative except as stated in HPI Past Medical History Past Medical History: Blood Disorder, Heart Failure, Diabetes Mellitus, Dialysis, Hyperlipidemia, Hypertension, Liver Disease, Pneumonia, Renal Disease Additional Past Medical History / Comment(s): Bilateral cataracts, recently d iagnosed with bilateral retinal hemorrhages, hypertriglyceridemia-induced acute pancreatitis, THEN necrotizing pancreatitis. hemodialysis for acute kidney injury 2 months in 2009 after pancreatic OR, 11/2015 diagnosed w/ chronic kidney disease-hemodialysis /-last hemodialysis 07-10-18, IDDM type II, past DKA, pt states she has dry heaves day after dialysis, UTI, chronic anemia, frequent body cramping, occasional low back pain, carter's palsy x2, past L leg fx, possible liver disease-recent liver bx-results unknown per pt. History of Any Multi-Drug Resistant Organisms: None Reported Past Surgical History: Orthopedic Surgery, Uterine Ablation Additional Past Surgical History / Comment(s): Recent liver biopsy done at [facility] but pt states they have never contacted her with the results, 08/26/17 colonoscopy with polypectomy/bx, pancreatic resection at [facility] 2009, bone marrow biopsies X2-last one 05/19/16,. dialysis chest port x 2 with removals, Left arm shunt placement for dialysis - December 2015 and a revision done with shunt. Past Anesthesia/Blood Transfusion Reactions: No Reported Reaction Additional Past Anesthesia/Blood Transfusion Reaction / Comm: Pt has received blood transfusions without reaction. Past Psychological History: No Psychological Hx Reported Additional Psychological History / Comment(s): Pt resides at her mother in laws home at this time with spouse. They are her mother in laws caretakers. She is independent. She uses no assistive device. She drives. Smoking Status: Never smoker Past Alcohol Use History: None Reported Additional Past Alcohol Use History / Comment(s): Patient is a lifelong non smoker. Past Drug Use History: None Reported - Past Family History Brother(s) Family Medical History: No Reported History Mother Family Medical History: Cancer, Diabetes Mellitus, Hypertension Additional Family Medical History / Comment(s): Mother of throat cancer at the age of 63 yrs. She was a smoker. Father Family Medical History: Coronary Artery Disease (CAD), Hyperlipidemia, Hypertension Additional Family Medical History / Comment(s): Father is 70 yrs old. Medications and Allergies Home Medications Medication Instructions Recorded Confirmed Type Atorvastatin [Lipitor] 40 mg PO HS 09/14/15 11/01/18 History Cyclobenzaprine [Flexeril] 10 mg PO HS 09/14/15 11/01/18 History Insulin Glargine [Lantus] 70 unit SQ HS 04/18/16 11/01/18 History cloNIDine HCL 0.3 mg PO TID 12/16/16 11/01/18 History rOPINIRole HCL [Requip] 1 mg PO TID 02/07/17 11/01/18 History Sevelamer [Renvela] 800 mg PO DAILY PRN 08/21/17 11/01/18 History HYDROcodone/APAP 5-325MG [Somers 1 tab PO Q8HR PRN #45 tab 09/24/17 11/01/18 Rx 5-325] amLODIPine [Norvasc] 10 mg PO DAILY 10/06/17 11/01/18 History Furosemide [Lasix] 80 mg PO BID 10/22/17 11/01/18 History Metoprolol Tartrate [Lopressor] 50 mg PO BID 10/22/17 11/01/18 History Prochlorperazine [Compazine] 5 mg PO BID PRN 10/26/17 11/01/18 History Diazepam [Valium] 5 mg PO BID 02/10/18 11/01/18 History Sevelamer [Renvela] 2,400 mg PO AC-TID 03/13/18 11/01/18 History Gabapentin [Neurontin] 100 mg PO TID 05/17/18 11/01/18 History INSULIN LISPRO (humaLOG) [humaLOG] See Protocol SQ AC-TID 05/17/18 11/01/18 History INSULIN LISPRO (humaLOG) [humaLOG] 18 unit SQ AC-TID 07/12/18 11/01/18 History Lisinopril [Zestril] 20 mg PO DAILY 11/01/18 11/01/18 History Omeprazole 20 mg PO DAILY 11/01/18 11/01/18 History [place]ien[place]-Natalie 1 tab PO DAILY 11/01/18 11/01/18 History traMADol HCL [Ultram] 50 mg PO Q4HR PRN 11/01/18 11/01/18 History Allergies Allergy/AdvReac Type Severity Reaction Status Date / Time ciprofloxacin [From Cipro] AdvReac AFFECTED Verified 11/01/18 13:27 EYESIGHT ciprofloxacin HCl AdvReac AFFECTED Verified 11/01/18 13:27 [From Cipro] EYESIGHT Iodinated Contrast- Oral and AdvReac RENAL Verified 11/01/18 13:27 IV Dye FAILURE Physical Exam Vitals: Vital Signs Temp Pulse Pulse Resp BP BP Pulse Ox 11/02/18 11:02 166/76 11/02/18 05:00 97.7 F 64 18 202/87 92 L 11/02/18 03:59 180/78 11/02/18 01:30 98.5 F 72 18 181/79 92 L 11/01/18 22:48 98.5 F 65 18 184/80 11/01/18 22:18 98.5 F 68 18 180/69 11/01/18 22:08 98.2 F 69 18 193/79 11/01/18 22:05 98.6 F 71 18 193/73 11/01/18 21:00 98.0 F 70 18 196/77 96 11/01/18 18:18 97.8 F 64 16 199/84 99 11/01/18 17:00 98.0 F 63 18 184/80 100 Intake and Output 11/02/18 11/02/18 11/02/18 06:59 14:59 22:59 Intake Total 760 Balance 760 Intake: Oral 450 Blood Product 310 Rc Irr As1 Unit 310 [id number] Other: # Voids 2 0 Weight 79.2 kg - Constitutional General appearance: average body habitus, cooperative, no acute distress - EENT Eyes: anicteric sclerae, EOMI ENT: hearing grossly normal, normal oropharynx - Neck Neck: no lymphadenopathy - Respiratory Respiratory: bilateral: CTA - Cardiovascular Rhythm: regular Heart sounds: normal: S1, S2 Abnormal Heart Sounds: no systolic murmur, no diastolic murmur, no rub, no S3 Gallop, no S4 Gallop, no click, no other leg Peripheral Edema: bilateral: None - Neurologic Neurologic: CNII-XII intact - Musculoskeletal Musculoskeletal: strength equal bilaterally - Psychiatric Psychiatric: A&O x's 3, appropriate affect, intact judgment & insight Results CBC & Chem 7: 11/02/18 06:25 11/02/18 06:25 Labs: Abnormal Lab Results - Last 24 Hours (Table) 11/01/18 11/01/18 11/01/18 Range/Units 13:45 15:30 18:24 WBC 2.3 L (3.8-10.6) k/uL RBC 1.94 L (3.80-5.40) m/uL Hgb 6.4 L* (11.4-16.0) gm/dL Hct 19.7 L* (34.0-46.0) % MCV 101.3 H (80.0-100.0) fL RDW 17.9 H (11.5-15.5) % Plt Count 77 L (150-450) k/uL Lymphocytes # 0.3 L (1.0-4.8) k/uL Sodium (137-145) mmol/L Potassium (3.5-5.1) mmol/L Chloride (98-107) mmol/L Carbon Dioxide (22-30) mmol/L BUN (7-17) mg/dL Creatinine (0.52-1.04) mg/dL Glucose (74-99) mg/dL POC Glucose (mg/dL) (75-99) mg/dL Urine Appearance Cloudy H (Clear) Urine pH 8.5 H (5.0-8.0) Urine Protein 3+ H (Negative) Urine Glucose (UA) 2+ H (Negative) Urine Blood Trace H (Negative) Ur Leukocyte Esterase Moderate H (Negative) Urine WBC 38 H (0-5) /hpf Ur Squamous Epith Cells 16 H (0-4) /hpf Amorphous Sediment Rare H (None) /hpf Urine Bacteria Occasional H (None) /hpf Crossmatch See Detail 11/01/18 11/01/18 11/02/18 Range/Units 20:39 23:48 06:25 WBC 2.7 L (3.8-10.6) k/uL RBC 2.26 L (3.80-5.40) m/uL Hgb 7.8 L (11.4-16.0) gm/dL Hct 22.5 L (34.0-46.0) % MCV (80.0-100.0) fL RDW 17.6 H (11.5-15.5) % Plt Count 80 L (150-450) k/uL Lymphocytes # 0.4 L (1.0-4.8) k/uL Sodium (137-145) mmol/L Potassium (3.5-5.1) mmol/L Chloride (98-107) mmol/L Carbon Dioxide (22-30) mmol/L BUN (7-17) mg/dL Creatinine (0.52-1.04) mg/dL Glucose (74-99) mg/dL POC Glucose (mg/dL) 212 H 303 H (75-99) mg/dL Urine Appearance (Clear) Urine pH (5.0-8.0) Urine Protein (Negative) Urine Glucose (UA) (Negative) Urine Blood (Negative) Ur Leukocyte Esterase (Negative) Urine WBC (0-5) /hpf Ur Squamous Epith Cells (0-4) /hpf Amorphous Sediment (None) /hpf Urine Bacteria (None) /hpf Crossmatch 11/02/18 11/02/18 11/02/18 Range/Units 06:25 07:09 12:23 WBC (3.8-10.6) k/uL RBC (3.80-5.40) m/uL Hgb (11.4-16.0) gm/dL Hct (34.0-46.0) % MCV (80.0-100.0) fL RDW (11.5-15.5) % Plt Count (150-450) k/uL Lymphocytes # (1.0-4.8) k/uL Sodium 136 L (137-145) mmol/L Potassium 5.5 H (3.5-5.1) mmol/L Chloride 92 L (98-107) mmol/L Carbon Dioxide 31 H (22-30) mmol/L BUN 80 H (7-17) mg/dL Creatinine 10.01 H* (0.52-1.04) mg/dL Glucose 133 H (74-99) mg/dL POC Glucose (mg/dL) 149 H 141 H (75-99) mg/dL Urine Appearance (Clear) Urine pH (5.0-8.0) Urine Protein (Negative) Urine Glucose (UA) (Negative) Urine Blood (Negative) Ur Leukocyte Esterase (Negative) Urine WBC (0-5) /hpf Ur Squamous Epith Cells (0-4) /hpf Amorphous Sediment (None) /hpf Urine Bacteria (None) /hpf Crossmatch Chest x-ray: report reviewed Assessment and Plan (1) Pancytopenia Narrative/Plan: Patient's pancytopenia is noted during hospital admissions, over the last several years, to be worse during acute illness, counts recover spontaneously-to her baseline-as she recovers from illness. Mention in review of the chart recommendation for erythropoietin supplementation. When asked, patient wasn't sure. I would suspect that this is given during dialysis to keep her Hgb in the 8.5-9.5 range-her baseline. WBC and platelets are lower then baseline at this time again, suspect related to acute illness/dehydration. Will monitor CBC as pt recovers. Transfuse for Hgb <7 or if symptomatic, cont aranesp as prescribed. Transfuse platelets if <10,000 or symptomatic. No GCSF for low WBC, ANC normal at 2.1. Since it has been over a year since the patient is seen a [facility] pancytopenia workup will be ordered. Not recommending bone marrow biopsy and aspirate at this time, but if patient's pancytopenia does not recuperate, at least to her baseline procedure may need to be considered. Current Visit: No Status: Chronic Priority: Medium Code(s): D61.818 - OTHER PANCYTOPENIA SNOMED Code(s): 157599674
[2018-11-02 17:15] LABS: Glucose,Whole Blood 146 mg/dL (75-99)
[2018-11-02] MEDS: CYCLOBENZAPRINE 10 MG TAB PO SCH (19:40)
[2018-11-02] MEDS: ATORVASTATIN 40 MG TAB PO SCH (19:41)
[2018-11-02 20:01] LABS: Glucose,Whole Blood 216 mg/dL (75-99)
[2018-11-02] MEDS: INSULIN DETEMIR (LEVEMIR) 100 UNIT/ML SYR SQ SCH (20:24)
[2018-11-03 03:47] LABS: Glucose,Whole Blood 154 mg/dL (75-99)
[2018-11-03 04:52] LABS: Iron Saturation 23.91 (12.00-45.00)
[2018-11-03] MEDS: HYDROcodone/APAP 5-325MG 1 EACH TAB PO PRN ×2 (04:57→15:16)
[2018-11-03 05:39] LABS: Protein, Total 6.4 g/dL (6.2-8.2)
[2018-11-03 07:26] LABS: Glucose,Whole Blood 101 mg/dL (75-99)
[2018-11-03 07:31] LABS: HGB 6.9 gm/dL (11.4-16.0)
[2018-11-03] MEDS: INSULIN ASPART (NovoLOG) 100 UNIT/ML VIAL SQ SCH ×7 (07:43→21:32)
[2018-11-03] MEDS: SEVELAMER 800 MG TAB PO SCH ×3 (07:45→17:45)
[2018-11-03] MEDS: PANTOPRAZOLE 40 MG TABLET PO SCH (07:45)
[2018-11-03] MEDS: DIAZEPAM 5 MG TAB PO SCH ×2 (07:46→21:25)
[2018-11-03] MEDS: cloNIDine HCL 0.1 MG TAB PO SCH ×3 (07:46→21:25)
[2018-11-03] MEDS: amLODIPine 10 MG TAB PO SCH (07:46)
[2018-11-03] MEDS: FUROSEMIDE 80 MG TAB PO SCH ×2 (07:46→21:25)
[2018-11-03] MEDS: GABAPENTIN 100 MG CAP PO SCH ×3 (07:46→21:25)
[2018-11-03] MEDS: METOPROLOL TARTRATE 50 MG TAB PO SCH ×2 (07:46→21:25)
[2018-11-03] MEDS: LISINOPRIL 20 MG TAB PO SCH (07:46)
[2018-11-03 09:32] LABS: Anisocytosis Slight; Basophils % (A) 1 %; Eosinophils # (A) 0.1 k/uL (0-0.7); Eosinophils % (A) 3 %; HCT 24.4 % (34.0-46.0); Lymphocytes # (A) 0.3 k/uL (1.0-4.8); Lymphocytes % (A) 11 %; MCHC 32.7 g/dL (31.0-37.0); MCV 101.1 fL (80.0-100.0); Macrocytosis Moderate; Monocytes # (A) 0.1 k/uL (0-1.0); Monocytes % (A) 4 %; Neutrophils # (A) 2.3 k/uL (1.3-7.7); Neutrophils % (A) 80 %; RBC 2.42 m/uL (3.80-5.40); RDW 17.9 % (11.5-15.5); WBC 2.8 k/uL (3.8-10.6)
[2018-11-03 09:38] LABS: Platelet Count 96 k/uL (150-450)
[2018-11-03 09:48] LABS: Calcium 9.4 mg/dL (8.4-10.2); Potassium 4.9 mmol/L (3.5-5.1)
--- NOTE | 2018-11-03 10:07 | P.PN ---
Subjective Patient is seen in follow-up for end-stage renal disease. She is maintained on hemodialysis on a Thursday schedule. Hemoglobin stable at 8.0 today. No active bleeding. Tolerated hemodialysis well yesterday. Having nosebleed. Blood pressures have been high. Vital signs are stable. General: The patient appeared well nourished and normally developed. HEENT: Head exam is unremarkable. Neck is without jugular venous distension. LUNGS: Lungs are clear to auscultation and percussion. Breath sounds decreased. HEART: Rate and Rhythm are regular. First and second heart sounds normal. No murmurs, rubs or gallops. ABDOMEN: Abdominal exam reveals normal bowel sounds. Non-tender and non- distended. No evidence of peritonitis. EXTREMITITES: No clubbing, cyanosis, or edema. Objective - Vital Signs Vital signs: Vital Signs Temp 98.1 F 11/03/18 04:15 Pulse 60 11/03/18 09:03 Resp 22 11/03/18 04:15 BP 170/73 11/03/18 09:03 Pulse Ox 94 L 11/03/18 09:03 Intake & Output 11/02/18 11/03/18 11/03/18 18:59 06:59 18:59 Intake Total 820 Output Total 4500 Balance -3680 Weight 76.6 kg Intake: Oral 320 Hemodialysis 500 Output: Hemodialysis 4500 Other: # Voids 0 2 - Labs CBC & Chem 7: 11/03/18 08:33 11/03/18 08:33 Labs: Abnormal Lab Results - Last 24 Hours (Table) 11/01/18 11/02/18 11/02/18 Range/Units 13:45 06:25 12:23 WBC (3.8-10.6) k/uL RBC (3.80-5.40) m/uL Hgb 6.9 L* (11.4-16.0) gm/dL Hct (34.0-46.0) % MCV (80.0-100.0) fL RDW (11.5-15.5) % Plt Count (150-450) k/uL Lymphocytes # (1.0-4.8) k/uL Chloride (98-107) mmol/L BUN (7-17) mg/dL Creatinine (0.52-1.04) mg/dL Glucose (74-99) mg/dL POC Glucose (mg/dL) 141 H (75-99) mg/dL Ferritin 990.3 H (10.0-291.0) ng/mL 11/02/18 11/02/18 11/03/18 Range/Units 17:13 20:00 02:22 WBC (3.8-10.6) k/uL RBC (3.80-5.40) m/uL Hgb (11.4-16.0) gm/dL Hct (34.0-46.0) % MCV (80.0-100.0) fL RDW (11.5-15.5) % Plt Count (150-450) k/uL Lymphocytes # (1.0-4.8) k/uL Chloride (98-107) mmol/L BUN (7-17) mg/dL Creatinine (0.52-1.04) mg/dL Glucose (74-99) mg/dL POC Glucose (mg/dL) 146 H 216 H 154 H (75-99) mg/dL Ferritin (10.0-291.0) ng/mL 11/03/18 11/03/18 11/03/18 Range/Units 07:06 08:33 08:33 WBC 2.8 L (3.8-10.6) k/uL RBC 2.42 L (3.80-5.40) m/uL Hgb 8.0 L (11.4-16.0) gm/dL Hct 24.4 L (34.0-46.0) % MCV 101.1 H (80.0-100.0) fL RDW 17.9 H (11.5-15.5) % Plt Count 96 L (150-450) k/uL Lymphocytes # 0.3 L (1.0-4.8) k/uL Chloride 95 L (98-107) mmol/L BUN 42 H (7-17) mg/dL Creatinine 7.55 H* (0.52-1.04) mg/dL Glucose 186 H (74-99) mg/dL POC Glucose (mg/dL) 101 H (75-99) mg/dL Ferritin (10.0-291.0) ng/mL Assessment and Plan Plan: Assessment: 1. End-stage renal disease maintained on hemodialysis on a Thursday schedule. 2. Acute blood loss anemia status post blood transfusion. No active bleeding noted except epistaxis. Patient has had extensive workup with hematology and GI in the past with no obvious bleeding source noted. Maintained on Aranesp. 3. Hypertension with chronic kidney disease. Uncontrolled. 4. Diastolic CHF with moderate tricuspid regurgitation and pulmonary hypertension. 5. Pericardial effusion. 6. Chronic kidney disease mineral bone disease maintained on Renvela. 7. Insulin-dependent diabetes mellitus. Plan: Hemodialysis tomorrow with goal 4 L ultrafiltration. Maintain current antihypertensives. Add hydralazine 100 mg 3 times daily.
[2018-11-03] MEDS: hydrALAZINE HCL 50 MG TAB PO SCH ×3 (10:23→21:25)
--- NOTE | 2018-11-03 11:05 | P.PN ---
Subjective Progress Note Date: 11/03/18 Principal diagnosis: Anemia ESRD Denies hematemesis hematochezia melena. Hematology consulted. Hemoglobin 8. Objective - Vital Signs Vital signs: Vital Signs Temp 98.1 F 11/03/18 04:15 Pulse 60 11/03/18 09:03 Resp 22 11/03/18 04:15 BP 170/73 11/03/18 09:03 Pulse Ox 94 L 11/03/18 09:03 Intake & Output 11/02/18 11/03/18 11/03/18 18:59 06:59 18:59 Intake Total 820 Output Total 4500 Balance -3680 Weight 76.6 kg Intake: Oral 320 Hemodialysis 500 Output: Hemodialysis 4500 Other: # Voids 0 2 - Exam General appearance: The patient is alert, oriented, in no acute distress. HET: Head is normocephalic and atraumatic. Pupils are equal and reactive. Oropharynx is clear without lesions. Neck: Supple without lymphadenopathy. Trachea midline. Heart: S1 S2. Regular rate and rhythm. Lungs: No crackles or wheezes are heard. Abdomen: Soft, nontender, nondistended with bowel sounds. No peritoneal signs. No palpable organomegaly or masses. Extremities: Normal skin color and turgor. No cyanosis, rash, ulceration, clubbing, or edema. Radial and pedal pulses are 2/4 bilaterally. Neurological: No focal deficits. Strength and sensation are grossly intact. - Labs CBC & Chem 7: 11/03/18 08:33 11/03/18 08:33 Labs: Abnormal Lab Results - Last 24 Hours (Table) 11/01/18 11/02/18 11/02/18 Range/Units 13:45 06:25 12:23 WBC (3.8-10.6) k/uL RBC (3.80-5.40) m/uL Hgb 6.9 L* (11.4-16.0) gm/dL Hct (34.0-46.0) % MCV (80.0-100.0) fL RDW (11.5-15.5) % Plt Count (150-450) k/uL Lymphocytes # (1.0-4.8) k/uL Chloride (98-107) mmol/L BUN (7-17) mg/dL Creatinine (0.52-1.04) mg/dL Glucose (74-99) mg/dL POC Glucose (mg/dL) 141 H (75-99) mg/dL Ferritin 990.3 H (10.0-291.0) ng/mL Free [place] LC, Quant 29.80 H (0.33-1.94) mg/dL Free Lambda LC, Quant 8.22 H (0.57-2.63) mg/dL 11/02/18 11/02/18 11/03/18 Range/Units 17:13 20:00 02:22 WBC (3.8-10.6) k/uL RBC (3.80-5.40) m/uL Hgb (11.4-16.0) gm/dL Hct (34.0-46.0) % MCV (80.0-100.0) fL RDW (11.5-15.5) % Plt Count (150-450) k/uL Lymphocytes # (1.0-4.8) k/uL Chloride (98-107) mmol/L BUN (7-17) mg/dL Creatinine (0.52-1.04) mg/dL Glucose (74-99) mg/dL POC Glucose (mg/dL) 146 H 216 H 154 H (75-99) mg/dL Ferritin (10.0-291.0) ng/mL Free [place] LC, Quant (0.33-1.94) mg/dL Free Lambda LC, Quant (0.57-2.63) mg/dL 11/03/18 11/03/18 11/03/18 Range/Units 07:06 08:33 08:33 WBC 2.8 L (3.8-10.6) k/uL RBC 2.42 L (3.80-5.40) m/uL Hgb 8.0 L (11.4-16.0) gm/dL Hct 24.4 L (34.0-46.0) % MCV 101.1 H (80.0-100.0) fL RDW 17.9 H (11.5-15.5) % Plt Count 96 L (150-450) k/uL Lymphocytes # 0.3 L (1.0-4.8) k/uL Chloride 95 L (98-107) mmol/L BUN 42 H (7-17) mg/dL Creatinine 7.55 H* (0.52-1.04) mg/dL Glucose 186 H (74-99) mg/dL POC Glucose (mg/dL) 101 H (75-99) mg/dL Ferritin (10.0-291.0) ng/mL Free [place] LC, Quant (0.33-1.94) mg/dL Free Lambda LC, Quant (0.57-2.63) mg/dL Assessment and Plan (1) Chronic anemia Narrative/Plan: 53-year-old female presents with weakness and acute on chronic anemia without overt GI bleeding such as hematemesis hematochezia or melena. Suspect anemia of chronic disease patient is reporting epistaxis and hemoptysis which could be c ontributing to mild component of acute blood loss anemia. Current Visit: Yes Status: Acute Code(s): D64.9 - ANEMIA, UNSPECIFIED SNOMED Code(s): 108112958 (2) End stage renal disease Current Visit: Yes Status: Acute Code(s): N18.6 - END STAGE RENAL DISEASE SNOMED Code(s): 97456606 Plan: 1. CBC monitoring. If she manifests active GI bleeding such as hematemesis hematochezia or melena will proceed accordingly. Transfusions as indicated. Nephrology following closely. Inpatient endoscopic exams not planned at this time. Hematology consult recommended. Assessment and plan a care discussed with Dr. Leach
[2018-11-03 11:41] LABS: Glucose,Whole Blood 122 mg/dL (75-99)
[2018-11-03] MEDS ORDERED: SALINE NASAL GEL 14.1 GM TUBE TOPICAL PRN (15:04)
--- NOTE | 2018-11-03 16:08 | P.PN ---
Subjective Progress Note Date: 11/03/18 This is a 53-year-old female with history of end-stage kidney disease on hemodialysis, chronic anemia, hypertension, moderate tricuspid regurgitation, pulmonary hypertension, diastolic CHF, pericardial effusion, diabetes mellitus and multiple other medical issues presented to the ER with complaints of gene ralized weakness with suspected anemia. Denies bleeding, melena, hemoptysis, hematochezia. Denies nausea vomiting or diarrhea. Denies abdominal pain. Denies fever or chills. Received hemodialysis Thursday and Saturdays with last dialysis completed on Thursday.Denies extremity edema. Hemoglobin on admission 6.9, repeat 6.4. Status post 1 unit of packed RBCs. Post transfusion hemoglobin 7.8. Platelets 77 on admission, up to 80 Afebrile, Hypertensive, scheduled for hemodialysis today. Creatinine 10. Denies back pain, Denies chest pain, palpitations. WBC 2.7, neutrophils 77. Elevated blood sugars, UA reporting a squamous epithelial cells, WBCs and moderate leukocytes, +3 protein. EKG reporting normal sinus rhythm, troponin negative. Chest x-ray reporting stable cardiomegaly, possible pericardial effusion. 11/03/2018 hemodialysis yesterday and scheduled again for tomorrow. hypertensive with multiple epistaxis episodes.Denies melena, hemoptysis, hematochezia. Hemoglobin 8. Hydralazine as her antihypertensive med regime as per nephrology. Not on any blood thinners. Pancytopenia workup in progress as per hematology. Evaluated by GI with no endoscopy planned at this time. Denies chest pain, palpitations or shortness of breath. Objective - Vital Signs Vital signs: Vital Signs Temp 97.4 F L 11/03/18 12:51 Pulse 62 11/03/18 12:51 Resp 16 11/03/18 12:51 BP 177/76 11/03/18 12:51 Pulse Ox 97 11/03/18 12:51 Intake & Output 11/02/18 11/03/18 11/03/18 18:59 06:59 18:59 Intake Total 820 540 Output Total 4500 Balance -3680 540 Weight 76.6 kg Intake: Oral 320 540 Hemodialysis 500 Output: Hemodialysis 4500 Other: # Voids 0 2 2 - Exam VITAL SIGNS: As above GENERAL: Sitting up in bed, no acute distress HEENT: Conjunctivae normal. eyes normal. Oral mucosa moist NECK: No JVD. No thyroid enlargement. No LNs CARDIOVASCULAR: S1, S2 regular. no murmur RESPIRATION: Nonlabored, Breath sounds diminished in the bases. No rhonchi or c rackles. No bronchial breathing. ABDOMEN: Soft, nondistended, nontender . No guarding. no masses palpable.Bowel sounds heard. LEGS: No edema. no swelling. No cyanosis, clubbing. PSYCHIATRY: Alert and oriented X3, mood and affect normal. NERVOUS SYSTEM: Cranial N 2-12 grossly normal. Moves all 4 limbs. Diffuse weakness No focal deficits. Strength and sensation grossly intact.. Skin: no lesions, no rash Lymphatic system. No LN neck axilla or groin. - Labs CBC & Chem 7: 11/03/18 08:33 11/03/18 08:33 Labs: Abnormal Lab Results - Last 24 Hours (Table) 11/01/18 11/02/18 11/02/18 Range/Units 13:45 06:25 06:25 WBC (3.8-10.6) k/uL RBC (3.80-5.40) m/uL Hgb 6.9 L* (11.4-16.0) gm/dL Hct (34.0-46.0) % MCV (80.0-100.0) fL RDW (11.5-15.5) % Plt Count (150-450) k/uL Lymphocytes # (1.0-4.8) k/uL Chloride (98-107) mmol/L BUN (7-17) mg/dL Creatinine (0.52-1.04) mg/dL Glucose (74-99) mg/dL POC Glucose (mg/dL) (75-99) mg/dL Ferritin 990.3 H (10.0-291.0) ng/mL RBC Folate >2,100 H (280 - 791) ng/mL Free [place] LC, Quant 29.80 H (0.33-1.94) mg/dL Free Lambda LC, Quant 8.22 H (0.57-2.63) mg/dL 11/02/18 11/02/18 11/03/18 Range/Units 17:13 20:00 02:22 WBC (3.8-10.6) k/uL RBC (3.80-5.40) m/uL Hgb (11.4-16.0) gm/dL Hct (34.0-46.0) % MCV (80.0-100.0) fL RDW (11.5-15.5) % Plt Count (150-450) k/uL Lymphocytes # (1.0-4.8) k/uL Chloride (98-107) mmol/L BUN (7-17) mg/dL Creatinine (0.52-1.04) mg/dL Glucose (74-99) mg/dL POC Glucose (mg/dL) 146 H 216 H 154 H (75-99) mg/dL Ferritin (10.0-291.0) ng/mL RBC Folate (280 - 791) ng/mL Free [place] LC, Quant (0.33-1.94) mg/dL Free Lambda LC, Quant (0.57-2.63) mg/dL 11/03/18 11/03/18 11/03/18 Range/Units 07:06 08:33 08:33 WBC 2.8 L (3.8-10.6) k/uL RBC 2.42 L (3.80-5.40) m/uL Hgb 8.0 L (11.4-16.0) gm/dL Hct 24.4 L (34.0-46.0) % MCV 101.1 H (80.0-100.0) fL RDW 17.9 H (11.5-15.5) % Plt Count 96 L (150-450) k/uL Lymphocytes # 0.3 L (1.0-4.8) k/uL Chloride 95 L (98-107) mmol/L BUN 42 H (7-17) mg/dL Creatinine 7.55 H* (0.52-1.04) mg/dL Glucose 186 H (74-99) mg/dL POC Glucose (mg/dL) 101 H (75-99) mg/dL Ferritin (10.0-291.0) ng/mL RBC Folate (280 - 791) ng/mL Free [place] LC, Quant (0.33-1.94) mg/dL Free Lambda LC, Quant (0.57-2.63) mg/dL 11/03/18 Range/Units 11:38 WBC (3.8-10.6) k/uL RBC (3.80-5.40) m/uL Hgb (11.4-16.0) gm/dL Hct (34.0-46.0) % MCV (80.0-100.0) fL RDW (11.5-15.5) % Plt Count (150-450) k/uL Lymphocytes # (1.0-4.8) k/uL Chloride (98-107) mmol/L BUN (7-17) mg/dL Creatinine (0.52-1.04) mg/dL Glucose (74-99) mg/dL POC Glucose (mg/dL) 122 H (75-99) mg/dL Ferritin (10.0-291.0) ng/mL RBC Folate (280 - 791) ng/mL Free [place] LC, Quant (0.33-1.94) mg/dL Free Lambda LC, Quant (0.57-2.63) mg/dL Assessment and Plan Assessment: -Acute on chronic blood loss anemia, status post transfusion 1 unit packed RBCs. Reports last colonoscopy 1 year ago. Denies recent EGD. -Epistaxis -End-stage renal disease on hemodialysis Thursday -Hypertension, uncontrolled -Diabetes mellitus -Moderate tricuspid regurgitation -Pulmonary hypertension -Diastolic CHF, chronic -History of pericardial effusion Plan: Continue current medication regime ,monitoring and symptomatic treatment. Hydralazine added to med regime. Close monitoring of blood pressures. Scheduled for hemodialysis tomorrow. Close monitoring of CBC with repeat labs ordered for a.m. saline nasal spray/gel ordered. Discharge planning in progress for tomorrow, pending blood pressure better controlled. The impression and plan of care has been dictated as directed. : I performed a history and examination of this patient, discussed the same with the dictator. I agree with the dictator's note ,documented as a scribe. Any additional findings or plans will be noted. Time taken: 35 minutes
[2018-11-03 17:03] LABS: Glucose,Whole Blood 105 mg/dL (75-99)
[2018-11-03 20:34] LABS: Glucose,Whole Blood 133 mg/dL (75-99)
[2018-11-03 21:00] VITALS: RESP 20
[2018-11-03] MEDS: CYCLOBENZAPRINE 10 MG TAB PO SCH (21:25)
[2018-11-03] MEDS: ATORVASTATIN 40 MG TAB PO SCH (21:25)
[2018-11-03] MEDS: INSULIN DETEMIR (LEVEMIR) 100 UNIT/ML SYR SQ SCH (21:31)
[2018-11-04 00:28] LABS: Glucose,Whole Blood 184 mg/dL (75-99)
[2018-11-04] MEDS: HYDROcodone/APAP 5-325MG 1 EACH TAB PO PRN ×2 (00:41→08:48)
[2018-11-04 05:24] VITALS: PULSE 65; TEMP 97.8
[2018-11-04 07:10] LABS: Glucose,Whole Blood 123 mg/dL (75-99)
[2018-11-04] MEDS: DIAZEPAM 5 MG TAB PO SCH (07:51)
[2018-11-04] MEDS: cloNIDine HCL 0.1 MG TAB PO SCH (07:51)
[2018-11-04] MEDS: SEVELAMER 800 MG TAB PO SCH ×2 (07:51→12:47)
[2018-11-04] MEDS: FUROSEMIDE 80 MG TAB PO SCH (07:52)
[2018-11-04] MEDS: amLODIPine 10 MG TAB PO SCH (07:52)
[2018-11-04] MEDS: hydrALAZINE HCL 50 MG TAB PO SCH (07:52)
[2018-11-04] MEDS: LISINOPRIL 20 MG TAB PO SCH (07:52)
[2018-11-04] MEDS: GABAPENTIN 100 MG CAP PO SCH (07:52)
[2018-11-04] MEDS: METOPROLOL TARTRATE 50 MG TAB PO SCH (07:52)
[2018-11-04] MEDS: PANTOPRAZOLE 40 MG TABLET PO SCH (07:52)
[2018-11-04] MEDS: INSULIN ASPART (NovoLOG) 100 UNIT/ML VIAL SQ SCH ×4 (07:53→12:48)
--- NOTE | 2018-11-04 10:18 | P.PN ---
Subjective Patient is seen in follow-up for end-stage renal disease. She is maintained on hemodialysis on a Thursday schedule. Hemoglobin stable at 8.0 as of yesterday. No active bleeding. Epistaxis resolved. Blood pressures have been high but better today compared to yesterday. No headaches. No chest pain or shortness of breath. Vital signs are stable. General: The patient appeared well nourished and normally developed. HEENT: Head exam is unremarkable. Neck is without jugular venous distension. LUNGS: Lungs are clear to auscultation and percussion. Breath sounds decreased. HEART: Rate and Rhythm are regular. First and second heart sounds normal. No murmurs, rubs or gallops. ABDOMEN: Abdominal exam reveals normal bowel sounds. Non-tender and non- distended. No evidence of peritonitis. EXTREMITITES: No clubbing, cyanosis, or edema. Objective - Vital Signs Vital signs: Vital Signs Temp 97.8 F 11/04/18 04:40 Pulse 65 11/04/18 04:40 Resp 20 11/04/18 04:40 BP 143/76 11/04/18 10:11 Pulse Ox 98 11/04/18 04:40 Intake & Output 11/03/18 11/04/18 11/04/18 18:59 06:59 18:59 Intake Total 1080 Balance 1080 Weight 78 kg Intake: Oral 1080 Other: Voiding Method Toilet Toilet # Voids 1 2 - Labs CBC & Chem 7: 11/03/18 08:33 11/03/18 08:33 Labs: Abnormal Lab Results - Last 24 Hours (Table) 11/02/18 11/02/18 11/03/18 Range/Units 06:25 06:25 11:38 POC Glucose (mg/dL) 122 H (75-99) mg/dL RBC Folate >2,100 H (280 - 791) ng/mL Free Pickrell LC, Quant 29.80 H (0.33-1.94) mg/dL Free Lambda LC, Quant 8.22 H (0.57-2.63) mg/dL 11/03/18 11/03/18 11/04/18 Range/Units 16:57 20:32 00:26 POC Glucose (mg/dL) 105 H 133 H 184 H (75-99) mg/dL RBC Folate (280 - 791) ng/mL Free [place]rell LC, Quant (0.33-1.94) mg/dL Free Lambda LC, Quant (0.57-2.63) mg/dL 11/04/18 Range/Units 07:00 POC Glucose (mg/dL) 123 H (75-99) mg/dL RBC Folate (280 - 791) ng/mL Free Pickrell LC, Quant (0.33-1.94) mg/dL Free Lambda LC, Quant (0.57-2.63) mg/dL Assessment and Plan Plan: Assessment: 1. End-stage renal disease maintained on hemodialysis on a Thursday schedule. 2. Acute blood loss anemia status post blood transfusion. No active bleeding noted except epistaxis. Patient has had extensive workup with hematology and GI in the past with no obvious bleeding source noted. Maintained on Aranesp. 3. Hypertension with chronic kidney disease. Better today. 4. Diastolic CHF with moderate tricuspid regurgitation and pulmonary hypertension. 5. Pericardial effusion. 6. Chronic kidney disease mineral bone disease maintained on Renvela. 7. Insulin-dependent diabetes mellitus. Plan: Currently seen while undergoing hemodialysis. Next treatment on Thursday. Maintain current antihypertensives. Increase lisinopril to 20 mg twice daily.
--- NOTE | 2018-11-04 10:58 | P.DS ---
Providers Date of admission: 11/01/18 16:52 Attending physician: David Bragg Consults: 11/01/18 19:05 Consult Physician Routine Consulting Provider: Rachael Orozco Consult Reason/Comments: Dialysis Do you want consulting provider notified?: Yes, Notify in am 11/02/18 09:04 Consult Physician Routine Consulting Provider: Cirilo Garay Consult Reason/Comments: anemia Do you want consulting provider notified?: Yes Primary care physician: David Bragg [facility] Course: Final Diagnoses: -Acute on chronic blood loss anemia, status post transfusion 1 unit packed RBCs. Reports last colonoscopy 1 year ago. Denies recent EGD. -Epistaxis, subsided -End-stage renal disease on hemodialysis Thursday -Hypertension, better controlled -Diabetes mellitus -Moderate tricuspid regurgitation -Pulmonary hypertension -Diastolic CHF, chronic -History of pericardial effusion Hospital course:This is a 53-year-old female with history of end-stage kidney disease on hemodialysis, chronic anemia, hypertension, moderate tricuspid regurgitation, pulmonary hypertension, diastolic CHF, pericardial effusion, diabetes mellitus and multiple other medical issues presented to the ER with complaints of generalized weakness with suspected anemia. Denies bleeding, melena, hemoptysis, hematochezia. Denies nausea vomiting or diarrhea. Denies abdominal pain. Denies fever or chills. Received hemodialysis Thursday and Saturdays with last dialysis completed on Thursday.Denies extremity edema. Hemoglobin on admission 6.9, repeat 6.4. Status post 1 unit of packed RBCs. Post transfusion hemoglobin 7.8. Platelets 77 on admission, up to 80 Afebrile, Hypertensive, scheduled for hemodialysis today. Creatinine 10. Denies back pain, Denies chest pain, palpitations. WBC 2.7, neutrophils 77. Elevated blood sugars, UA reporting a squamous epithelial cells, WBCs and moderate leukocytes, +3 protein. EKG reporting normal sinus rhythm, troponin negative. Chest x-ray reporting stable cardiomegaly, possible pericardial effusion. 11/03/2018 hemodialysis yesterday and scheduled again for tomorrow. hypertensive with multiple epistaxis episodes.Denies melena, hemoptysis, hematochezia. Hemoglobin 8. Hydralazine as her antihypertensive med regime as per nephrology. Not on any blood thinners. Pancytopenia workup in progress as per hematology. Evaluated by GI with no endoscopy planned at this time. Denies chest pain, palpitations or shortness of breath. Antihypertensives adjusted as per nephrology. Episodes of epistaxis subsided, blood pressure better controlled. Significant clinical improvement. Cleared for discharge by nephrology after hemodialysis completed today. Patient is being discharged home in a stable condition with guarded prognosis. - Exam GENERAL: no acute distress CARDIOVASCULAR: S1, S2 regular. no murmur RESPIRATION: Nonlabored, Breath sounds diminished in the bases. No rhonchi or crackles. ABDOMEN: Soft, nondistended, nontender . No guarding. no masses palpable.Bowel sounds heard. NERVOUS SYSTEM: No focal deficits. The impression and plan of care has been dictated as directed. : I performed a history and examination of this patient, discussed the same with the dictator. I agree with the dictator's note ,documented as a scribe. Any additional findings or plans will be noted. Time taken: 35 minutes Patient Condition at Discharge: Stable Plan - Discharge Summary Discharge Rx Participant: Yes New Discharge Prescriptions: New hydrALAZINE HCL [Apresoline] 100 mg PO TID #180 tab Saline Nasal Gel [[place] Nasal Gel] 1 applic TOPICAL Q4HR PRN gm PRN Reason: Dry Nasal Passages Lisinopril [Zestril] 20 mg PO BID #60 tab Cefuroxime Axetil [Ceftin] 500 mg PO BID 3 Days #6 tab Continue Atorvastatin [Lipitor] 40 mg PO HS Cyclobenzaprine [Flexeril] 10 mg PO HS Insulin Glargine [Lantus] 70 unit SQ HS cloNIDine HCL 0.3 mg PO TID rOPINIRole HCL [Requip] 1 mg PO TID Sevelamer [Renvela] 800 mg PO DAILY PRN PRN Reason: SNACKS HYDROcodone/APAP 5-325MG [[place] 5-325] 1 tab PO Q8HR PRN #45 tab PRN Reason: Pain amLODIPine [Norvasc] 10 mg PO DAILY Metoprolol Tartrate [Lopressor] 50 mg PO BID Furosemide [Lasix] 80 mg PO BID Prochlorperazine [Compazine] 5 mg PO BID PRN PRN Reason: Nausea Diazepam [Valium] 5 mg PO BID Sevelamer [Renvela] 2,400 mg PO AC-TID INSULIN LISPRO (humaLOG) [humaLOG] See Protocol SQ AC-TID Gabapentin [Neurontin] 100 mg PO TID INSULIN LISPRO (humaLOG) [humaLOG] 18 unit SQ AC-TID [place]-Natalie 1 tab PO DAILY traMADol HCL [Ultram] 50 mg PO Q4HR PRN PRN Reason: Pain Omeprazole 20 mg PO DAILY Discontinued Lisinopril [Zestril] 20 mg PO DAILY Discharge Medication List Atorvastatin [Lipitor] 40 mg PO HS 09/14/15 [History] Cyclobenzaprine [Flexeril] 10 mg PO HS 09/14/15 [History] Insulin Glargine [Lantus] 70 unit SQ HS 04/18/16 [History] cloNIDine HCL 0.3 mg PO TID 12/16/16 [History] rOPINIRole HCL [Requip] 1 mg PO TID 02/07/17 [History] Sevelamer [Renvela] 800 mg PO DAILY PRN 08/21/17 [History] HYDROcodone/APAP 5-325MG [[place] 5-325] 1 tab PO Q8HR PRN #45 tab 09/24/17 [Rx] amLODIPine [Norvasc] 10 mg PO DAILY 10/06/17 [History] Furosemide [Lasix] 80 mg PO BID 10/22/17 [History] Metoprolol Tartrate [Lopressor] 50 mg PO BID 10/22/17 [History] Prochlorperazine [Compazine] 5 mg PO BID PRN 10/26/17 [History] Diazepam [Valium] 5 mg PO BID 02/10/18 [History] Sevelamer [Renvela] 2,400 mg PO AC-TID 03/13/18 [History] Gabapentin [Neurontin] 100 mg PO TID 05/17/18 [History] INSULIN LISPRO (humaLOG) [humaLOG] See Protocol SQ AC-TID 05/17/18 [History] INSULIN LISPRO (humaLOG) [humaLOG] 18 unit SQ AC-TID 07/12/18 [History] Omeprazole 20 mg PO DAILY 11/01/18 [History] Max-Natalie 1 tab PO DAILY 11/01/18 [History] traMADol HCL [Ultram] 50 mg PO Q4HR PRN 11/01/18 [History] Cefuroxime Axetil [Ceftin] 500 mg PO BID 3 Days #6 tab 11/04/18 [Rx] Lisinopril [Zestril] 20 mg PO BID #60 tab 11/04/18 [Rx] Saline Nasal Gel [[place] Nasal Gel] 1 applic TOPICAL Q4HR PRN gm 11/04/18 [Rx] hydrALAZINE HCL [Apresoline] 100 mg PO TID #180 tab 11/04/18 [Rx] Follow up Appointment(s)/Referral(s): David Bragg MD [Primary Care Provider] - 3 Days Ambulatory/Diagnostic Orders: Complete Blood Count w/diff [LAB.AMB] Time Frame: 3 Days, Location: None Selected Activity/Diet/Wound Care/Special Instructions: Hemodialysis as per nephrology. Diet: Renal, consistent carb Activity: Limited until follow up
[2018-11-04 11:13] LABS: Albumin 4.21 g/dL (3.80-4.90); Gamma Globulin 0.86 g/dL (0.70-1.50)
[2018-11-04 12:04] LABS: Glucose,Whole Blood 90 mg/dL (75-99)
[2018-11-04 12:41] VITALS: BP 158/77
[2018-11-04] MEDS ORDERED: LISINOPRIL 20 MG TAB PO SCH (21:00)
== END 2018-11-04 13:38 | disposition home or self-care (01) | DRG 811 ==
LOC: EC 13:00 → 4MS4W 16:52
PROVIDERS: ADMIT Family Medicine; ATTEND Family Medicine
PROC: 30233N1 Transfusion of Nonautologous Red Blood Cells into Peripheral Vein, Percutaneous Approach (ICD-10-PCS; principal; 2018-11-01)
PROC: 5A1D70Z Performance of Urinary Filtration, Intermittent, Less than 6 Hours Per Day (ICD-10-PCS; 2018-11-02)
DX: D62 Acute posthemorrhagic anemia (principal); N18.6 End stage renal disease; I13.0 Hypertensive heart and chronic kidney disease with heart failure and stage 1 through stage 4 chronic kidney disease, or unspecified chronic kidney disease; I50.32 Chronic diastolic (congestive) heart failure; I31.3 Pericardial effusion (noninflammatory); D61.818 Other pancytopenia; R04.0 Epistaxis; I16.0 Hypertensive urgency; M54.5 Low back pain; H26.9 Unspecified cataract; D63.1 Anemia in chronic kidney disease; E11.65 Type 2 diabetes mellitus with hyperglycemia; E78.1 Pure hyperglyceridemia; E78.5 Hyperlipidemia, unspecified; I27.20 Pulmonary hypertension, unspecified; E66.9 Obesity, unspecified; Z68.30 Body mass index [BMI] 30.0-30.9, adult; E11.22 Type 2 diabetes mellitus with diabetic chronic kidney disease; I07.1 Rheumatic tricuspid insufficiency; E83.89 Other disorders of mineral metabolism; Z99.2 Dependence on renal dialysis; Z79.4 Long term (current) use of insulin; Z87.01 Personal history of pneumonia (recurrent); Z86.010 Personal history of colon polyps; Z87.440 Personal history of urinary (tract) infections; Z82.49 Family history of ischemic heart disease and other diseases of the circulatory system; Z88.1 Allergy status to other antibiotic agents; Z91.041 Radiographic dye allergy status; Z79.899 Other long term (current) drug therapy; Z80.0 Family history of malignant neoplasm of digestive organs; Z83.3 Family history of diabetes mellitus
CPT/HCPCS: 36415; 71046; 80048; 80053; 81001; 82607; 82728; 82747; 83540; 83550; 83605; 83735; 83880; 83883; 84165; 84484; 85025; 85610; 85730; 86334; 86850; 86900; 86901; 86920; 90935; 93005; 99285

== ENCOUNTER 2018-11-21 17:46 | Emergency (ER) | payer OTHER ==
[2018-11-21] MEDS ORDERED: LABETALOL SYRINGE 5 MG/ML IVP STA (18:12)
--- NOTE | 2018-11-21 18:17 | ED ---
General Adult HPI - General Chief complaint: Upper Respiratory Infection Stated complaint: nausea Time Seen by Provider: 11/21/18 17:58 Source: patient, family Mode of arrival: ambulatory Limitations: no limitations - History of Present Illness Initial comments: Patient is a 53-year-old female with a history of end-stage renal disease, on dialysis Thursday, , Thursday, who presents with a chief complaint of cough. Patient states she has been coughing about 2 weeks. She states that she was recently started on lisinopril and has been coughing since. She characterizes a dry nonproductive cough. She not identifying any other concerning incidences. There are no aggravating or alleviating factors. Timing is constant. She denies any chest pain, shortness of breath, nausea or vomiting. - Related Data Home Medications Medication Instructions Recorded Confirmed Atorvastatin [Lipitor] 40 mg PO HS 09/14/15 11/21/18 Cyclobenzaprine [Flexeril] 10 mg PO HS 09/14/15 11/21/18 Insulin Glargine [Lantus] 70 unit SQ HS 04/18/16 11/21/18 cloNIDine HCL 0.3 mg PO TID 12/16/16 11/21/18 rOPINIRole HCL [Requip] 1 mg PO TID 02/07/17 11/21/18 Sevelamer [Renvela] 800 mg PO DAILY PRN 08/21/17 11/21/18 amLODIPine [Norvasc] 10 mg PO DAILY 10/06/17 11/21/18 Furosemide [Lasix] 80 mg PO BID 10/22/17 11/21/18 Metoprolol Tartrate [Lopressor] 50 mg PO BID 10/22/17 11/21/18 Prochlorperazine [Compazine] 5 mg PO BID PRN 10/26/17 11/21/18 Diazepam [Valium] 5 mg PO BID 02/10/18 11/21/18 Sevelamer [Renvela] 2,400 mg PO AC-TID 03/13/18 11/21/18 Gabapentin [Neurontin] 100 mg PO TID 05/17/18 11/21/18 INSULIN LISPRO (humaLOG) [humaLOG] See Protocol SQ AC-TID 05/17/18 11/21/18 INSULIN LISPRO (humaLOG) [humaLOG] 18 unit SQ AC-TID 07/12/18 11/21/18 Omeprazole 20 mg PO DAILY 11/01/18 11/21/18 [place]-Natalie 1 tab PO DAILY 11/01/18 11/21/18 traMADol HCL [Ultram] 50 mg PO Q4HR PRN 11/01/18 11/21/18 Lidocaine-Prilocaine Cream [Emla 1 applic TOPICAL DIRECTED 11/21/18 11/21/18 Cream 2.5%/2.5%] Previous Rx's Medication Instructions Recorded HYDROcodone/APAP 5-325MG [[place] 1 tab PO Q8HR PRN #45 tab 09/24/17 5-325] Lisinopril [Zestril] 20 mg PO BID #60 tab 11/04/18 Saline Nasal Gel [[place] Nasal Gel] 1 applic TOPICAL Q4HR PRN gm 11/04/18 hydrALAZINE HCL [Apresoline] 100 mg PO TID #180 tab 11/04/18 Losartan [Cozaar] 50 mg PO DAILY #14 tab 11/21/18 Allergies Allergy/AdvReac Type Severity Reaction Status Date / Time ciprofloxacin [From Cipro] AdvReac AFFECTED Verified 11/21/18 18:02 EYESIGHT ciprofloxacin HCl AdvReac AFFECTED Verified 11/21/18 18:02 [From Cipro] EYESIGHT Iodinated Contrast- Oral and AdvReac RENAL Verified 11/21/18 18:02 IV Dye FAILURE Review of Systems ROS Statement: Those systems with pertinent positive or pertinent negative responses have been documented in the HPI. ROS Other: All systems not noted in ROS Statement are negative. 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 hemodialysis for acute kidney injury 2 months in 2009 after pancreatic OR, 11/2015 diagnosed w/ chronic kidney disease-hemodialysis //-last hemodialysis 07-10-18, IDDM type II, past DKA, pt states she has dry heaves day after dialysis, UTI, chronic anemia, frequent body cramping, occasional low back pain, carter's palsy x2, past L leg fx, possible liver disease-recent liver bx-results unknown per pt. History of Any Multi-Drug Resistant Organisms: None Reported Past Surgical History: Orthopedic Surgery, Uterine Ablation Additional Past Surgical History / Comment(s): Recent liver biopsy done at [place] but pt states they have never contacted her with the results, 08/26/17 colonoscopy with polypectomy/bx, pancreatic resection at [facility] 2009, bone marrow biopsies X2-last one 05/19/16,. dialysis chest port x 2 with removals, Left arm shunt placement for dialysis - December 2015 and a revision done with shunt. Past Anesthesia/Blood Transfusion Reactions: No Reported Reaction Additional Past Anesthesia/Blood Transfusion Reaction / Comment(s): Pt has received blood transfusions without reaction. Past Psychological History: No Psychological Hx Reported Smoking Status: Never smoker Past Alcohol Use History: None Reported Past Drug Use History: None Reported - Past Family History Brother(s) Family Medical History: No Reported History Mother Family Medical History: Cancer, Diabetes Mellitus, Hypertension Additional Family Medical History / Comment(s): Mother of throat cancer at the age of 63 yrs. She was a smoker. Father Family Medical History: Coronary Artery Disease (CAD), Hyperlipidemia, Hypertension Additional Family Medical History / Comment(s): Father is 70 yrs old. General Exam Limitations: no limitations General appearance: alert, in no apparent distress Head exam: Present: atraumatic, normocephalic Eye exam: Present: normal appearance ENT exam: Present: normal exam Neck exam: Present: normal inspection Respiratory exam: Present: rales. Absent: respiratory distress, wheezes Cardiovascular Exam: Present: regular rate, normal rhythm GI/Abdominal exam: Present: soft. Absent: distended, tenderness Rectal exam: Present: deferred Extremities exam: Present: normal inspection, other (Patient has an AV fistula in the left upper extremity with palpable thrill.) Back exam: Present: normal inspection Neurological exam: Present: alert, oriented X3 Psychiatric exam: Present: normal affect, normal mood Skin exam: Present: warm, dry, intact Course Vital Signs 11/21/18 11/21/18 11/21/18 17:53 18:30 19:00 Temperature 98.2 F Pulse Rate 89 83 77 Respiratory 18 20 18 Rate Blood Pressure 215/80 186/94 170/74 O2 Sat by Pulse 97 99 99 Oximetry Medical Decision Making - Medical Decision Making Patient presents with a chief complaint cough. On initial evaluation, vital signs show hypertension otherwise stable. Patient is in no acute distress. She'll be evaluated with basic labs including cardiac enzymes, chest x-ray, and TSH. Her cough is most likely secondary to PRABHA inhibitor use. She will be given 20 mg of labetalol IV for blood pressure control. We'll switch patient to an ARB. EKG performed at 1836 shows normal sinus rhythm with an incomplete right bundle branch block. Ventricular rate is 84 bpm, T waves appear to be within normal limits, segment otherwise within normal limits, no ischemic changes found. 7:41 PM Laboratory evaluation this patient is unremarkable except for chronic anemia, and chronic kidney disease. Hemoglobin today is 7.0, previous values were reviewed, this is stable. Patient is asymptomatic. On reevaluation, patient's blood pressure is improved. At this time, patient stable for discharge. Patient was informed that a dry cough may be a side effect of an PRABHA inhibitor. Patient was instructed to stop taking lisinopril, she was prescribed losartan. She was instructed to follow up with primary care in cardiology in one to 2 days, return to the ED if symptoms worsen or change. - Lab Data Result diagrams: 11/21/18 18:25 11/21/18 18:25 Lab Results 11/21/18 11/21/18 11/21/18 Range/Units 18:25 18:25 18:25 WBC 2.6 L (3.8-10.6) k/uL RBC 2.04 L (3.80-5.40) m/uL Hgb 7.0 L (11.4-16.0) gm/dL Hct 19.5 L* (34.0-46.0) % MCV 95.8 D (80.0-100.0) fL MCH 34.4 (25.0-35.0) pg MCHC 35.9 (31.0-37.0) g/dL RDW 17.7 H (11.5-15.5) % Plt Count 102 L (150-450) k/uL Neutrophils % 83 % Lymphocytes % 7 % Monocytes % 5 % Eosinophils % 3 % Basophils % 1 % Neutrophils # 2.1 (1.3-7.7) k/uL Lymphocytes # 0.2 L (1.0-4.8) k/uL Monocytes # 0.1 (0-1.0) k/uL Eosinophils # 0.1 (0-0.7) k/uL Basophils # 0.0 (0-0.2) k/uL Poikilocytosis Slight Anisocytosis Slight Macrocytosis Slight Sodium 137 (137-145) mmol/L Potassium 5.3 H (3.5-5.1) mmol/L Chloride 93 L (98-107) mmol/L Carbon Dioxide 30 (22-30) mmol/L Anion Gap 14 mmol/L BUN 57 H (7-17) mg/dL Creatinine 7.76 H* (0.52-1.04) mg/dL Est GFR (CKD-EPI)AfAm 6 (>60 ml/min/1.73 sqM) Est GFR (CKD-EPI)NonAf 5 (>60 ml/min/1.73 sqM) Glucose 260 H (74-99) mg/dL Calcium 9.2 (8.4-10.2) mg/dL Troponin I 0.025 (0.000-0.034) ng/mL TSH 1.630 (0.465-4.680) mIU/L Disposition Clinical Impression: Cough due to PRABHA inhibitor, Hypertension Disposition: HOME SELF-CARE Condition: Good Instructions (If sedation given, give patient instructions): Chronic Hypertension (ED) Is patient prescribed a controlled substance at d/c from ED?: No Referrals: David Bragg MD [Primary Care Provider] - 1-2 days
[2018-11-21 18:44] LABS: Calcium 9.2 mg/dL (8.4-10.2); Potassium 5.3 mmol/L (3.5-5.1)
[2018-11-21 18:54] LABS: Anisocytosis Slight; Basophils % (A) 1 %; Eosinophils # (A) 0.1 k/uL (0-0.7); Eosinophils % (A) 3 %; Lymphocytes # (A) 0.2 k/uL (1.0-4.8); Lymphocytes % (A) 7 %; MCH 34.4 pg (25.0-35.0); MCHC 35.9 g/dL (31.0-37.0); Macrocytosis Slight; Mean Platelet Volume 8.7; Monocytes # (A) 0.1 k/uL (0-1.0); Monocytes % (A) 5 %; Neutrophils # (A) 2.1 k/uL (1.3-7.7); Neutrophils % (A) 83 %; Platelet Count 102 k/uL (150-450); Poikilocytosis Slight; RBC 2.04 m/uL (3.80-5.40); RDW 17.7 % (11.5-15.5); WBC 2.6 k/uL (3.8-10.6)
[2018-11-21 18:57] LABS: HCT 19.5 % (34.0-46.0); MCV 95.8 fL (80.0-100.0)
--- NOTE | 2018-11-21 19:01 | XR ---
EXAMINATION TYPE: XR chest 2V DATE OF EXAM: 11/21/2018 COMPARISON: Chest x-ray November 01, 2018. HISTORY: Cough and slight chest pain. TECHNIQUE: Frontal and lateral views of the chest are obtained. FINDINGS: There is persistent cardiomegaly. There is persistent central vascular congestion. No pleu ral effusion or pneumothorax. Overlying EKG leads are redemonstrated. The osseous structures are int act. IMPRESSION: Cardiomegaly with perhaps mild central vascular congestion. Correlate clinically.
[2018-11-21 19:11] VITALS: PULSE 77; RESP 18
[2018-11-21 20:09] VITALS: BP 170/83; TEMP 98.1
== END 2018-11-21 20:05 | disposition home or self-care (01) ==
LOC: EC 17:46
DX: R05 Cough (principal); T46.4X5A Adverse effect of angiotensin-converting-enzyme inhibitors, initial encounter; I45.10 Unspecified right bundle-branch block; I13.2 Hypertensive heart and chronic kidney disease with heart failure and with stage 5 chronic kidney disease, or end stage renal disease; E11.22 Type 2 diabetes mellitus with diabetic chronic kidney disease; N18.6 End stage renal disease; D63.1 Anemia in chronic kidney disease; I50.9 Heart failure, unspecified; E78.5 Hyperlipidemia, unspecified; Z99.2 Dependence on renal dialysis; Z88.1 Allergy status to other antibiotic agents; Z88.8 Allergy status to other drugs, medicaments and biological substances; Z91.041 Radiographic dye allergy status; Z79.4 Long term (current) use of insulin; Z79.899 Other long term (current) drug therapy; Z82.49 Family history of ischemic heart disease and other diseases of the circulatory system
CPT/HCPCS: 36415; 71046; 80048; 84443; 84484; 85025; 93005; 96374; 99284

== ENCOUNTER 2018-12-01 17:40 | Emergency (ER) | payer OTHER ==
[2018-12-01 17:56] VITALS: TEMP 98
--- NOTE | 2018-12-01 18:23 | ED ---
General Adult HPI - General Chief complaint: Upper Respiratory Infection Stated complaint: Cough Time Seen by Provider: 12/01/18 17:58 Source: patient, RN notes reviewed Mode of arrival: ambulatory Limitations: no limitations - History of Present Illness Initial comments: Sara is a 53-year-old female with a history of end-stage renal disease on dialysis Thursday and Thursday who presents with a chief complaint of cough. Patient states she has had a cough for about 3 weeks. States that she was seen here and was diagnosed with cough related to lisinopril however cough is not stops. Patient states it is a dry hacking cough. States that she is read as primary care tomorrow but came in today to be evaluated. Denies any significant tenderness of breath or chest pain but states sometimes it hurts when she coughs. Denies fevers or chills. States she last got dialysis on Thursday and is scheduled again tomorrow.Patient has no other complaints at this time including shortness of breath, chest pain, abdominal pain, nausea or vomiting, headache, or visual changes. - Related Data Home Medications Medication Instructions Recorded Confirmed Atorvastatin [Lipitor] 40 mg PO HS 09/14/15 12/01/18 Cyclobenzaprine [Flexeril] 10 mg PO HS 09/14/15 12/01/18 Insulin Glargine [Lantus] 70 unit SQ HS 04/18/16 12/01/18 cloNIDine HCL 0.3 mg PO TID 12/16/16 12/01/18 Sevelamer [Renvela] 800 mg PO DAILY PRN 08/21/17 12/01/18 amLODIPine [Norvasc] 10 mg PO DAILY 10/06/17 12/01/18 Furosemide [Lasix] 80 mg PO BID 10/22/17 12/01/18 Metoprolol Tartrate [Lopressor] 50 mg PO BID 10/22/17 12/01/18 Prochlorperazine [Compazine] 5 mg PO BID PRN 10/26/17 12/01/18 Diazepam [Valium] 5 mg PO BID 02/10/18 12/01/18 Sevelamer [Renvela] 2,400 mg PO AC-TID 03/13/18 12/01/18 Gabapentin [Neurontin] 100 mg PO TID 05/17/18 12/01/18 INSULIN LISPRO (humaLOG) [humaLOG] See Protocol SQ AC-TID 05/17/18 12/01/18 INSULIN LISPRO (humaLOG) [humaLOG] 18 unit SQ AC-TID 07/12/18 12/01/18 Omeprazole 20 mg PO DAILY 11/01/18 12/01/18 traMADol HCL [Ultram] 50 mg PO Q4HR PRN 11/01/18 12/01/18 Lidocaine-Prilocaine Cream [Emla 1 applic TOPICAL DIRECTED 11/21/18 12/01/18 Cream 2.5%/2.5%] HYDROcodone/APAP 5-325MG [[place] 1 tab PO TID 12/01/18 12/01/18 5-325] Promethazine 6.25MG/5Ml [Phenergan 6.25 mg PO Q6H PRN 12/01/18 12/01/18 Syrup] Triphrocaps 1 tab PO DAILY 12/01/18 12/01/18 rOPINIRole HCL [Requip] 1 mg PO HS 12/01/18 12/01/18 Previous Rx's Medication Instructions Recorded hydrALAZINE HCL [Apresoline] 100 mg PO TID #180 tab 11/04/18 Losartan [Cozaar] 50 mg PO DAILY #14 tab 11/21/18 Allergies Allergy/AdvReac Type Severity Reaction Status Date / Time ciprofloxacin [From Cipro] AdvReac AFFECTED Verified 12/01/18 19:00 EYESIGHT ciprofloxacin HCl AdvReac AFFECTED Verified 12/01/18 19:00 [From Cipro] EYESIGHT Iodinated Contrast- Oral and AdvReac RENAL Verified 12/01/18 19:00 IV Dye FAILURE Review of Systems ROS Statement: Those systems with pertinent positive or pertinent negative responses have been documented in the HPI. ROS Other: All systems not noted in ROS Statement are negative. 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 hemodialysis for acute kidney injury 2 months in 2009 after pancreatic OR, 11/2015 diagnosed w/ chronic kidney disease-hemodialysis //-last hemodialysis 3-2-19, IDDM type II, past DKA, pt states she has dry heaves day after dialysis, UTI, chronic anemia, frequent body cramping, occasional low back pain, carter's palsy x2, past L leg fx, possible liver disease-recent liver bx-results unknown per pt. History of Any Multi-Drug Resistant Organisms: None Reported Past Surgical History: Orthopedic Surgery, Uterine Ablation Additional Past Surgical History / Comment(s): Recent liver biopsy done at [facility] but pt states they have never contacted her with the results, 08/26/17 colonoscopy with polypectomy/bx, pancreatic resection at [facility] 2009, bone marrow biopsies X2-last one 05/19/16,. dialysis chest port x 2 with removals, Left arm shunt placement for dialysis - December 2015 and a revision done with shunt. Past Anesthesia/Blood Transfusion Reactions: No Reported Reaction Additional Past Anesthesia/Blood Transfusion Reaction / Comment(s): Pt has received blood transfusions without reaction. Past Psychological History: No Psychological Hx Reported Smoking Status: Never smoker Past Alcohol Use History: None Reported Past Drug Use History: None Reported - Past Family History Brother(s) Family Medical History: No Reported History Mother Family Medical History: Cancer, Diabetes Mellitus, Hypertension Additional Family Medical History / Comment(s): Mother of throat cancer at the age of 63 yrs. She was a smoker. Father Family Medical History: Coronary Artery Disease (CAD), Hyperlipidemia, Hypertension Additional Family Medical History / Comment(s): Father is 70 yrs old. General Exam Limitations: no limitations General appearance: alert, in no apparent distress Head exam: Present: atraumatic, normocephalic, normal inspection Eye exam: Present: normal appearance, PERRL, EOMI. Absent: scleral icterus, conjunctival injection, periorbital swelling ENT exam: Present: normal exam, mucous membranes moist Neck exam: Present: normal inspection, full ROM. Absent: tenderness, meningismus, lymphadenopathy Respiratory exam: Present: normal lung sounds bilaterally. Absent: respiratory distress, wheezes, rales, rhonchi, stridor Cardiovascular Exam: Present: regular rate, normal rhythm, normal heart sounds. Absent: systolic murmur, diastolic murmur, rubs, gallop, clicks GI/Abdominal exam: Present: soft, normal bowel sounds. Absent: distended, tenderness, guarding, rebound, rigid Neurological exam: Present: alert, oriented X3 Psychiatric exam: Present: normal affect, normal mood Course Vital Signs 12/01/18 12/01/18 17:52 18:43 Temperature 98.0 F Pulse Rate 78 Respiratory 18 20 Rate Blood Pressure 196/78 O2 Sat by Pulse 98 Oximetry Medical Decision Making - Medical Decision Making 53-year-old female with a history of end-stage renal disease currently receiving dialysis presents to the emergency department for dry cough 3 weeks. Patient states she started lisinopril and was told to stop this as this could have caused the cough. She denies fevers or chills. She denies coughing up any phlegm. Denies shortness of breath. On exam lungs are clear to auscultation bilaterally. Patient is well appearing. Vitals are stable however patient is hypertensive which has a history of. She will follow up with primary care for this. CBC shows a hemoglobin of 7.7 which is chronic in nature. CMP shows a creatinine of 7.64. This is also chronic as patient is on dialysis. Chest x- ray shows stable cardiomegaly. No focal airspace opacity, pleural effusion, or pneumothorax. At this time no need for antibiotics. This patient is not wheezing steroids will not be given. Patient has an appointment with her primary care provider Dr. Bragg tomorrow at 320 which she will attend. She'll return here if she develops fever or shortness of breath or any other worsening symptoms. - Lab Data Result diagrams: 12/01/18 18:40 12/01/18 18:40 Lab Results 12/01/18 12/01/18 Range/Units 18:40 18:40 WBC 4.3 (3.8-10.6) k/uL RBC 2.25 L (3.80-5.40) m/uL Hgb 7.7 L (11.4-16.0) gm/dL Hct 23.4 L (34.0-46.0) % MCV 103.7 H D (80.0-100.0) fL MCH 34.3 (25.0-35.0) pg MCHC 33.1 (31.0-37.0) g/dL RDW 18.3 H (11.5-15.5) % Plt Count 132 L (150-450) k/uL Neutrophils % 89 % Lymphocytes % 5 % Monocytes % 5 % Eosinophils % 1 % Basophils % 0 % Neutrophils # 3.8 (1.3-7.7) k/uL Lymphocytes # 0.2 L (1.0-4.8) k/uL Monocytes # 0.2 (0-1.0) k/uL Eosinophils # 0.0 (0-0.7) k/uL Basophils # 0.0 (0-0.2) k/uL Hypochromasia Slight Poikilocytosis Slight Anisocytosis Slight Macrocytosis Moderate Sodium 142 (137-145) mmol/L Potassium 4.9 (3.5-5.1) mmol/L Chloride 93 L (98-107) mmol/L Carbon Dioxide 37 H (22-30) mmol/L Anion Gap 12 mmol/L BUN 47 H (7-17) mg/dL Creatinine 7.64 H* (0.52-1.04) mg/dL Est GFR (CKD-EPI)AfAm 6 (>60 ml/min/1.73 sqM) Est GFR (CKD-EPI)NonAf 6 (>60 ml/min/1.73 sqM) Glucose 70 L (74-99) mg/dL Calcium 9.2 (8.4-10.2) mg/dL Total Bilirubin 0.8 (0.2-1.3) mg/dL AST 66 H (14-36) U/L ALT 68 H (9-52) U/L Alkaline Phosphatase 102 (38-126) U/L Total Protein 7.3 (6.3-8.2) g/dL Albumin 4.7 (3.5-5.0) g/dL Disposition Clinical Impression: Cough, ESRD (end stage renal disease) Disposition: HOME SELF-CARE Condition: Good Instructions (If sedation given, give patient instructions): Upper Respiratory Infection (ED) Additional Instructions: Please follow up with your primary care provider tomorrow for appointment. Return here to the emergency department if you have any worsening symptoms. Is patient prescribed a controlled substance at d/c from ED?: No Referrals: David Bragg MD [Primary Care Provider] - 1-2 days Time of Disposition: 19:37
[2018-12-01 18:55] LABS: Anisocytosis Slight; Basophils % (A) 0 %; Eosinophils % (A) 1 %; HCT 23.4 % (34.0-46.0); HGB 7.7 gm/dL (11.4-16.0); Hypochromasia Slight; Lymphocytes # (A) 0.2 k/uL (1.0-4.8); Lymphocytes % (A) 5 %; MCH 34.3 pg (25.0-35.0); MCHC 33.1 g/dL (31.0-37.0); Macrocytosis Moderate; Mean Platelet Volume 8.7; Monocytes # (A) 0.2 k/uL (0-1.0); Monocytes % (A) 5 %; Neutrophils # (A) 3.8 k/uL (1.3-7.7); Neutrophils % (A) 89 %; Platelet Count 132 k/uL (150-450); Poikilocytosis Slight; RBC 2.25 m/uL (3.80-5.40); RDW 18.3 % (11.5-15.5); WBC 4.3 k/uL (3.8-10.6)
[2018-12-01 18:56] LABS: MCV 103.7 fL (80.0-100.0)
--- NOTE | 2018-12-01 18:57 | XR ---
EXAMINATION TYPE: XR chest 2V DATE OF EXAM: 12/01/2018 COMPARISON: Prior chest x-ray 11/21/2018 HISTORY: Cough TECHNIQUE: Frontal and lateral views of the chest are obtained. FINDINGS: There is no focal air space opacity, pleural effusion, or pneumothorax seen. The cardiac silhouette size is stable and enlarged, patient is rotated. There is a stent within the region of the left cephalic vein. The osseous structures are intact. IMPRESSION: Stable cardiomegaly.
[2018-12-01 19:00] LABS: Albumin 4.7 g/dL (3.5-5.0); Calcium 9.2 mg/dL (8.4-10.2); Potassium 4.9 mmol/L (3.5-5.1); Total Bilirubin 0.8 mg/dL (0.2-1.3); Total Protein 7.3 g/dL (6.3-8.2)
[2018-12-01 20:10] VITALS: BP 154/74; PULSE 77; RESP 18
== END 2018-12-01 19:50 | disposition home or self-care (01) ==
LOC: EC 17:40
DX: I13.2 Hypertensive heart and chronic kidney disease with heart failure and with stage 5 chronic kidney disease, or end stage renal disease (principal); E11.22 Type 2 diabetes mellitus with diabetic chronic kidney disease; N18.6 End stage renal disease; I50.9 Heart failure, unspecified; R05 Cough; E78.5 Hyperlipidemia, unspecified; E78.1 Pure hyperglyceridemia; Z99.2 Dependence on renal dialysis; Z79.4 Long term (current) use of insulin; Z79.899 Other long term (current) drug therapy; Z88.1 Allergy status to other antibiotic agents; Z91.041 Radiographic dye allergy status
CPT/HCPCS: 36415; 71046; 80053; 85025; 99283

== ENCOUNTER 2018-12-14 17:53 | Inpatient (IN) | payer OTHER ==
[2018-12-14] MEDS ORDERED: NITROGLYCERIN OINT 1 INCH/GM PACKET TOPICAL STA (18:24)
[2018-12-14] MEDS ORDERED: ASPIRIN 81 MG PO STA (18:24)
--- NOTE | 2018-12-14 18:35 | ED ---
Chest Pain HPI - General Chief Complaint: Chest Pain Stated Complaint: LEFT ARM AND CHEST PRESSURE Time Seen by Provider: 12/14/18 18:08 Source: patient Mode of arrival: ambulatory Limitations: no limitations - History of Present Illness Initial Comments: This 53-year-old white female presents with a complaint of some left arm and chest pain. She states that she developed some left shoulder pain just this past evening. She was doing some lifting yesterday so he could be related to that. She states that it is reproducible and worse with certain movements. She also developed some by lateral chest pain described as pressure this morning. She went to dialysis and had dialysis completed. Her light technician told her to come to the ER for further evaluation. She denies any leg pain or swelling or history of DVT or PE. She denies any known definitive cardiac problems. She, however, failed a stress test a couple months ago. She was scheduled for a heart catheterization approximately 5 days ago but she states that she missed the appointment to have this done by Dr. Flaherty. She apparently is in the process of getting this rescheduled. She denies any other complaints or modifying factors. - Related Data Home Medications Medication Instructions Recorded Confirmed Atorvastatin [Lipitor] 40 mg PO HS 09/14/15 12/14/18 Cyclobenzaprine [Flexeril] 10 mg PO HS 09/14/15 12/14/18 Insulin Glargine [Lantus] 70 unit SQ HS 04/18/16 12/14/18 cloNIDine HCL 0.3 mg PO TID 12/16/16 12/14/18 Sevelamer [Renvela] 800 mg PO DAILY PRN 08/21/17 12/14/18 amLODIPine [Norvasc] 10 mg PO DAILY 10/06/17 12/14/18 Furosemide [Lasix] 80 mg PO BID 10/22/17 12/14/18 Metoprolol Tartrate [Lopressor] 50 mg PO BID 10/22/17 12/14/18 Prochlorperazine [Compazine] 5 mg PO BID 10/26/17 12/14/18 Diazepam [Valium] 5 mg PO BID 02/10/18 12/14/18 Sevelamer [Renvela] 2,400 mg PO AC-TID 03/13/18 12/14/18 Gabapentin [Neurontin] 100 mg PO TID 05/17/18 12/14/18 INSULIN LISPRO (humaLOG) [humaLOG] See Protocol SQ AC-TID 05/17/18 12/14/18 INSULIN LISPRO (humaLOG) [humaLOG] 18 unit SQ AC-TID 07/12/18 12/14/18 Omeprazole 20 mg PO DAILY 11/01/18 12/14/18 traMADol HCL [Ultram] 50 mg PO Q4HR PRN 11/01/18 12/14/18 Lidocaine-Prilocaine Cream [Emla 1 applic TOPICAL DIRECTED 11/21/18 12/14/18 Cream 2.5%/2.5%] HYDROcodone/APAP 5-325MG [[place] 1 tab PO Q8H PRN 12/01/18 12/14/18 5-325] rOPINIRole HCL [Requip] 1 mg PO TID 12/01/18 12/14/18 Promethazine HCl [Phenergan Syrup] 6.25 mg PO Q4H PRN 12/07/18 12/14/18 Calcium Carbonate [Tums] 500 mg PO TID PRN 12/14/18 12/14/18 Cholecalciferol (Vitamin D3) 2,000 unit PO DAILY 12/14/18 12/14/18 [Vitamin D3] Folic Acid-Vit B Complex-Vit C 1 cap PO DAILY 12/14/18 12/14/18 [Nephrocaps] Magnesium Gluconate 27 mg PO BID 12/14/18 12/14/18 Sodium Chloride [Saline Nasal 1 spray EA NOSTRIL BID 12/14/18 12/14/18 [place]] Sodium Polystyrene Sulfon/Sorb 30 gm PO SUMOWEFR 12/14/18 12/14/18 [Kionex 15 gm/60 ml Suspension] Vitamin E (Dl,Tocopheryl Acet) 400 unit PO DAILY 12/14/18 12/14/18 [Vitamin E] hydrALAZINE HCL [Apresoline] 100 mg PO TID 12/14/18 12/14/18 Previous Rx's Medication Instructions Recorded Losartan [Cozaar] 50 mg PO DAILY #14 tab 11/21/18 Allergies Allergy/AdvReac Type Severity Reaction Status Date / Time ciprofloxacin [From Cipro] AdvReac AFFECTED Verified 12/14/18 18:51 EYESIGHT ciprofloxacin HCl AdvReac AFFECTED Verified 12/14/18 18:51 [facility] EYESIGHT Iodinated Contrast- Oral and AdvReac RENAL Verified 12/14/18 18:51 IV Dye FAILURE Review of Systems ROS Statement: Those systems with pertinent positive or pertinent negative responses have been documented in the HPI. ROS Other: All systems not noted in ROS Statement are negative. 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 hemodialysis for acute kidney injury 2 months in 2009 after pancreatic OR, 11/2015 diagnosed w/ chronic kidney disease-hemodialysis /-last hemodialysis 07-10-18, IDDM type II, past DKA, pt states she has dry heaves day after dialysis, UTI, chronic anemia, frequent body cramping, occasional low back pain, carter's palsy x2, past L leg fx, possible liver disease-recent liver bx-results unknown per pt. History of Any Multi-Drug Resistant Organisms: None Reported Past Surgical History: Orthopedic Surgery, Uterine Ablation Additional Past Surgical History / Comment(s): Recent liver biopsy done at [place] but pt states they have never contacted her with the results, 08/26/17 c olonoscopy with polypectomy/bx, pancreatic resection at [facility] 2009, bone marrow biopsies X2-last one 05/19/16,. dialysis chest port x 2 with removals, Left arm shunt placement for dialysis - December 2015 and a revision done with shunt. Past Anesthesia/Blood Transfusion Reactions: No Reported Reaction Additional Past Anesthesia/Blood Transfusion Reaction / Comment(s): Pt has received blood transfusions without reaction. Past Psychological History: No Psychological Hx Reported Smoking Status: Never smoker Past Alcohol Use History: None Reported Past Drug Use History: None Reported - Past Family History Brother(s) Family Medical History: No Reported History Mother Family Medical History: Cancer Additional Family Medical History / Comment(s): . Father Family Medical History: Hypertension Additional Family Medical History / Comment(s): Father is 70 yrs old. General Exam - General Exam Comments Initial Comments: GENERAL: The patient is well nourished and well hydrated. VITAL SIGNS: Heart rate, blood pressure, respiratory rate reviewed as recorded in nurse's notes. EYES: Pupils are round and reactive. Extraocular movements are intact. No conjunctival / lid redness or swelling. ENT: No external evidence of injury, swelling, or ecchymosis. Airway is patent. Throat is clear. NECK: Nontender. No swelling or evidence of injury. No subcutaneous emphysema. Trachea is midline. No thyroid mass. HEART: Regular rate and rhythm. Good peripheral pulses. LUNGS/CHEST: Breath sounds clear and equal bilaterally. No rales, rhonchi, or wheezes. No ecchymosis, subcutaneous emphysema, or tenderness. ABDOMEN: Abdomen soft without tenderness. No palpable masses or organomegaly. No peritoneal signs. No abdominal wall swelling or ecchymosis. EXTREMITIES: There is mild tenderness upon palpation of the shoulder anteriorly we and laterally. There is some minimal pain with extremes of range of motion. There is no swelling identified. Good radial pulses bilaterally and good capillary refill. Normal muscle tone and function. No thoracolumbar tenderness. NEUROLOGIC: Sensation is grossly intact. Cranial nerve exam reveals face is symmetrical, tongue is midline, speech is clear. SKIN: No abrasions or ecchymosis is noted. No induration or masses noted. PSYCHIATRIC: Alert and oriented. Appropriate behavior and judgment. Limitations: no limitations Course Vital Signs 12/14/18 12/14/18 12/14/18 18:01 18:19 18:30 Temperature 98.9 F Pulse Rate 78 75 Respiratory 20 23 Rate Blood Pressure 199/79 182/72 O2 Sat by Pulse 96 90 L 91 L Oximetry 12/14/18 12/14/18 18:50 19:10 Temperature Pulse Rate 75 75 Respiratory 12 15 Rate Blood Pressure 174/76 159/75 O2 Sat by Pulse 94 L 97 Oximetry Chest Pain MDM - MDM The patient was seen and examined. All diagnostics were reviewed. The EKG shows a normal sinus rhythm at a rate of 77. There is some T-wave abnormalities in lead 1 and aVL. There is no ST elevation identified. The KS intervals 156, QRS duration is 94, and the QTC intervals 470. An IV is established and she does receive aspirin orally as well as some Nitropaste. The laboratory does show evidence of anemia but this is actually improved as compared to previous. The hemoglobin is 8.2. The patient does have chronic renal failure. There is evidence of some hypochloremia as well. It is felt as though patient would require admission to the hospital for the possibility of acute coronary syndrome/unstable angina. An old EKG was reviewed from last month and the changes appear to be similar as compared to prior. On recheck patient still does complain of some pain into the left shoulder. This felt that this likely is musculoskeletal in nature. She also does have some bilateral chest pain which is more likely related to unstable angina. It is felt as though she would benefit from admission to the hospital. She was previously scheduled for a heart cath and she may be a candidate for heart catheterization while inpatient. Cardiology will be consult at. Case will be discussed with internal medicine in the near future is Dr. Bragg has been paged. Disposition Clinical Impression: Chest pain, Unstable angina, Left shoulder pain, Hypertension, Chronic renal failure, Hypochloremia, Chronic anemia Disposition: ADMITTED IP TO THIS [facility] Condition: Fair Is patient prescribed a controlled substance at d/c from ED?: No Time of Disposition: 19:38 Decision Date: 12/14/18 Decision Time: 19:38
[2018-12-14 18:48] LABS: Anisocytosis Slight; Basophils % (A) 0 %; Eosinophils # (A) 0.1 k/uL (0-0.7); Eosinophils % (A) 2 %; HGB 8.2 gm/dL (11.4-16.0); Lymphocytes # (A) 0.3 k/uL (1.0-4.8); Lymphocytes % (A) 10 %; MCH 33.6 pg (25.0-35.0); MCHC 34.1 g/dL (31.0-37.0); Macrocytosis Slight; Mean Platelet Volume 9.1; Monocytes # (A) 0.1 k/uL (0-1.0); Monocytes % (A) 4 %; Neutrophils # (A) 2.4 k/uL (1.3-7.7); Neutrophils % (A) 83 %; Poikilocytosis Slight; RBC 2.43 m/uL (3.80-5.40); RDW 17.3 % (11.5-15.5); WBC 2.9 k/uL (3.8-10.6)
[2018-12-14 18:49] LABS: Albumin 4.4 g/dL (3.5-5.0); Calcium 9.3 mg/dL (8.4-10.2); Magnesium 1.7 mg/dL (1.6-2.3); Potassium 4.9 mmol/L (3.5-5.1); Total Bilirubin 1.2 mg/dL (0.2-1.3)
[2018-12-14 18:53] LABS: Partial Thromboplastin Time 23.7 sec (22.0-30.0); Prothrombin Time 10.3 sec (9.0-12.0)
[2018-12-14 18:58] LABS: MCV 98.5 fL (80.0-100.0)
[2018-12-14 19:10] LABS: Platelet Count 75 k/uL (150-450)
[2018-12-14] MEDS ORDERED: MORPHINE SULFATE 2 MG/ML SYRINGE IVP STA (19:40)
[2018-12-14] MEDS ORDERED: HEPARIN SODIUM,PORCINE 5,000 UNIT/ML 1 ML VIAL IV ONE (19:43)
[2018-12-14] MEDS ORDERED: HEPARIN SODIUM,PORCINE 5,000 UNIT/ML 1 ML VIAL IV PRN (19:43)
[2018-12-14] MEDS ORDERED: NITROGLYCERIN SL TABS 0.4 MG TAB SUBLINGUAL PRN (19:43)
--- NOTE | 2018-12-14 19:44 | XR ---
EXAMINATION: XR chest 2V DATE AND TIME: 12/14/2018 7:08 PM CLINICAL INDICATION: PHH; Chest Pain TECHNIQUE: Departmental protocol COMPARISON: 12/01/2018 FINDINGS: Left subclavian/axillary stent redemonstrated. The lungs are clear. The pleural spaces are negative. The cardiac silhouette is moderate-markedly enlarged, unchanged. The remainder of the mediastinal silhouette is unremarkable. The skeletal structures and soft tissues are negative for acute findings. IMPRESSION: NO ACUTE PROCESS.
[2018-12-14] MEDS ORDERED: HEPARIN SOD,PORK IN 0.45% NACL 25,000 UNIT in 0.45% NACL 1 250ML.BAG IV SCH (19:45)
[2018-12-14] MEDS ORDERED: CALCIUM CARBONATE 500 MG CHEWABLE PO PRN (19:47)
[2018-12-14] MEDS ORDERED: SEVELAMER 800 MG TAB PO PRN (19:47)
[2018-12-14] MEDS ORDERED: PROMETHAZINE HCL 6.25 MG/5 ML CUP PO PRN (19:47)
[2018-12-14] MEDS ORDERED: LIDOCAINE-PRILOCAINE 2.5-2.5% CREAM 5 GM TUBE TOPICAL PRN (20:00)
[2018-12-14 20:38] LABS: Glucose,Whole Blood 147 mg/dL (75-99)
[2018-12-14] MEDS ORDERED: MAGNESIUM GLUCONATE 27 MG PO SCH (21:00)
[2018-12-14] MEDS ORDERED: ATORVASTATIN 40 MG TAB PO SCH (21:00)
[2018-12-14 21:43] VITALS: BMI 28.5
[2018-12-14] MEDS: INSULIN DETEMIR (LEVEMIR) 100 UNIT/ML SYR SQ SCH (21:44)
[2018-12-14] MEDS: INSULIN ASPART (NovoLOG) 100 UNIT/ML VIAL SQ SCH (21:44)
[2018-12-14] MEDS: HYDROcodone/APAP 5-325MG 1 EACH TAB PO PRN (21:45)
[2018-12-14] MEDS: hydrALAZINE HCL 50 MG TAB PO SCH (21:45)
[2018-12-14] MEDS: METOPROLOL TARTRATE 50 MG TAB PO SCH (21:45)
[2018-12-14] MEDS: SODIUM CHLORIDE 0.65% NASAL SPRAY 44 ML BTL NASAL SCH (21:46)
[2018-12-14] MEDS: GABAPENTIN 100 MG CAP PO SCH (21:46)
[2018-12-14] MEDS: CYCLOBENZAPRINE 5 MG TAB PO SCH (21:46)
[2018-12-14] MEDS: FUROSEMIDE 80 MG TAB PO SCH (21:46)
[2018-12-14] MEDS: cloNIDine HCL 0.1 MG TAB PO SCH (21:46)
[2018-12-14] MEDS: NITROGLYCERIN OINT 1 INCH/GM PACKET TOPICAL SCH (23:23)
[2018-12-15] MEDS: HYDROcodone/APAP 5-325MG 1 EACH TAB PO PRN ×2 (05:51→19:14)
[2018-12-15] MEDS: NITROGLYCERIN OINT 1 INCH/GM PACKET TOPICAL SCH (05:58)
[2018-12-15] MEDS: PROCHLORPERAZINE 5 MG TAB PO PRN (06:25)
[2018-12-15 06:58] LABS: Glucose,Whole Blood 133 mg/dL (75-99)
[2018-12-15] MEDS: INSULIN ASPART (NovoLOG) 100 UNIT/ML VIAL SQ SCH ×7 (07:45→19:59)
[2018-12-15] MEDS: LOSARTAN 50 MG TAB PO SCH (07:51)
[2018-12-15] MEDS: METOPROLOL TARTRATE 50 MG TAB PO SCH (07:51)
[2018-12-15 08:20] LABS: Cholesterol 147 mg/dL (<200); HDL Cholesterol 23 mg/dL (40-60)
[2018-12-15 08:29] LABS: Triglycerides 619 mg/dL (<150)
[2018-12-15] MEDS ORDERED: amLODIPine 10 MG TAB PO SCH (09:00)
[2018-12-15] MEDS ORDERED: ASPIRIN 325 MG TAB PO SCH (09:00)
[2018-12-15] MEDS ORDERED: hydrALAZINE HCL 20 MG/ML 1 ML VIAL IVP PRN (09:10)
[2018-12-15] MEDS: PANTOPRAZOLE 40 MG TABLET PO SCH (09:19)
[2018-12-15] MEDS: CHOLECALCIFEROL 1,000 UNIT TAB PO SCH (09:19)
[2018-12-15] MEDS: SEVELAMER 800 MG TAB PO SCH ×3 (09:20→17:37)
[2018-12-15] MEDS: hydrALAZINE HCL 50 MG TAB PO SCH ×3 (09:20→19:56)
[2018-12-15] MEDS: VITAMIN E (DL,TOCOPHERYL ACET) 400 UNIT CAP PO SCH (09:20)
[2018-12-15] MEDS: FUROSEMIDE 80 MG TAB PO SCH ×2 (09:21→17:36)
[2018-12-15] MEDS: FOLIC ACID-VIT B COMPLEX-VIT C 1 CAP PO SCH (09:21)
[2018-12-15] MEDS: SODIUM POLYSTYRENE SULFONATE 15 GM/60 ML BOTTLE PO SCH (09:22)
[2018-12-15] MEDS: NIFEdipine XL 90 MG TAB.ER.24 PO SCH (09:22)
[2018-12-15] MEDS: LABETALOL 200 MG TAB PO SCH ×2 (09:22→19:56)
[2018-12-15] MEDS: cloNIDine HCL 0.1 MG TAB PO SCH ×3 (09:34→19:56)
[2018-12-15] MEDS: GABAPENTIN 100 MG CAP PO SCH ×3 (09:34→19:55)
[2018-12-15] MEDS: ASPIRIN 81 MG PO SCH (09:34)
[2018-12-15] MEDS: SODIUM CHLORIDE 0.65% NASAL SPRAY 44 ML BTL NASAL SCH ×2 (09:37→21:29)
[2018-12-15] MEDS ORDERED: SODIUM CHLORIDE 0.9% 1,000 ML in EMPTY BAG 1 BAG IV ONE (09:38)
[2018-12-15] MEDS ORDERED: NITROGLYCERIN SL TABS 0.4 MG TAB SUBLINGUAL PRN (09:38)
--- NOTE | 2018-12-15 09:41 | P.CRDCN ---
History of Present Illness History of present illness: This is Nessa Leon PA-C dictating a consult on this patient The patient was interviewed and examined by me as well as by Dr. Perkins Case discussed with Dr. 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 Tesfaye, plan for right and left heart catheterization tomorrow Stop amlodipine and metoprolol and start Procardia XL 90 mg daily and labetalol 200 mg twice a day for blood pressure control Increase atorvastatin 80 mg daily, repeat lipid panel as an outpatient and consider adding fenofibrate HPI Patient is a 53-year-old female with a past medical history of hypertension, diabetes, ESRD on dialysis who presented with complaints of chest pain. The pain started as a soreness in her left upper arm and shoulder. She may have been doing some lifting the day before. She took a Corn without relief. The pain progressed to her chest. She went to dialysis and was sent to the emergency department for further evaluation. She is a patient of Dr. Tesfaye's and recently had a positive stress test a few months ago and was scheduled for coronary angiography as an outpatient. She apparently canceled the appointment and was in the process of rescheduling it. Upon presentation to the emergency department her blood pressure was elevated at 199/79, pulse was 78. Troponins were normal 3. EKG showed sinus mechanism with T-wave inversions in lateral leads. Patient seen and examined resting in bed. States her pain has improved somewhat. She continues to have pain in her arm and shoulder. ROS: No fevers, chills or rigors, no cough, phlegm or expectoration, no nausea, vomiting or diarrhea, no hematuria, dysuria, no musculoskeletal complaints, no strokes or seizures, no skin lesions. EXAMINATION: Temperature 97.7F, pulse 85, respirations 18, blood pressure 201/80, oxygen saturation 99% on room air Lungs are clear to auscultation bilaterally, no rhonchi wheezing or crackles appreciated Heart is regular, systolic murmur appreciated No elevated JVD No lower extremity edema Abdomen soft and nontender REVIEW OF LABS, ECG & MEDICAL DATA Chest x-ray showed no acute process EKG shows sinus mechanism with T-wave inversions in the lateral leads WBC 2.9, hemoglobin 8.2, platelets 75, potassium 4.9, BUN 42, creatinine 5.79 Troponin normal 3 Cholesterol 147, triglycerides 619, HDL 23 Most recent echo in May 2018 showed normal LV size, moderate concentric LVH, EF 50-55%, dilated LA, mild aortic valve sclerosis, mild MR, moderate TR RVSP 72 Past Medical History Past Medical History: Blood Disorder, Heart Failure, Diabetes Mellitus, Dialysis, Hyperlipidemia, Hypertension, Liver Disease, Pneumonia, Renal Disease Additional Past Medical History / Comment(s): Bilateral cataracts, recently diagnosed with bilateral retinal hemorrhages, hypertriglyceridemia-induced acute pancreatitis, THEN necrotizing pancreatitis. hemodialysis for acute kidney injury 2 months in 2009 after pancreatic OR, 11/2015 diagnosed w/ chronic kidney disease-hemodialysis -last hemodialysis 07-10-18, IDDM type II, past DKA, pt states she has dry heaves day after dialysis, UTI, chronic anemia, frequent body cramping, occasional low back pain, carter's palsy x2, past L leg fx, possible liver disease-recent liver bx-results unknown per pt. History of Any Multi-Drug Resistant Organisms: None Reported Past Surgical History: Orthopedic Surgery, Uterine Ablation Additional Past Surgical History / Comment(s): Recent liver biopsy done at [place] but pt states they have never contacted her with the results, 08/26/17 colonoscopy with polypectomy/bx, pancreatic resection at [facility] 2009, bone marrow biopsies X2-last one 05/19/16,. dialysis chest port x 2 with rem ovals, Left arm shunt placement for dialysis - December 2015 and a revision done with shunt. Past Anesthesia/Blood Transfusion Reactions: No Reported Reaction Additional Past Anesthesia/Blood Transfusion Reaction / Comment(s): Pt has received blood transfusions without reaction. Smoking Status: Former smoker - Past Family History Brother(s) Family Medical History: No Reported History Mother Family Medical History: Cancer Additional Family Medical History / Comment(s): . Father Family Medical History: Hypertension Additional Family Medical History / Comment(s): Father is 70 yrs old. Medications and Allergies Home Medications Medication Instructions Recorded Confirmed Type Atorvastatin [Lipitor] 40 mg PO HS 09/14/15 12/14/18 History Cyclobenzaprine [Flexeril] 10 mg PO HS 09/14/15 12/14/18 History Insulin Glargine [Lantus] 70 unit SQ HS 04/18/16 12/14/18 History cloNIDine HCL 0.3 mg PO TID 12/16/16 12/14/18 History Sevelamer [Renvela] 800 mg PO DAILY PRN 08/21/17 12/14/18 History amLODIPine [Norvasc] 10 mg PO DAILY 10/06/17 12/14/18 History Furosemide [Lasix] 80 mg PO BID 10/22/17 12/14/18 History Metoprolol Tartrate [Lopressor] 50 mg PO BID 10/22/17 12/14/18 History Prochlorperazine [Compazine] 5 mg PO BID 10/26/17 12/14/18 History Diazepam [Valium] 5 mg PO BID 02/10/18 12/14/18 History Sevelamer [Renvela] 2,400 mg PO AC-TID 03/13/18 12/14/18 History Gabapentin [Neurontin] 200 mg PO TID 05/17/18 12/14/18 History INSULIN LISPRO (humaLOG) [humaLOG] See Protocol SQ AC-TID 05/17/18 12/14/18 History INSULIN LISPRO (humaLOG) [humaLOG] 18 unit SQ AC-TID 07/12/18 12/14/18 History Omeprazole 40 mg PO DAILY 11/01/18 12/14/18 History traMADol HCL [Ultram] 50 mg PO Q4HR PRN 11/01/18 12/14/18 History Lidocaine-Prilocaine Cream [Emla 1 applic TOPICAL DIRECTED 11/21/18 12/14/18 History Cream 2.5%/2.5%] Losartan [Cozaar] 50 mg PO DAILY #14 tab 11/21/18 12/14/18 Rx HYDROcodone/APAP 5-325MG [Corn 1 tab PO Q8H PRN 12/01/18 12/14/18 History 5-325] rOPINIRole HCL [Requip] 1 mg PO TID 12/01/18 12/14/18 History Folic Acid-Vit B Complex-Vit C 1 cap PO DAILY 12/14/18 12/14/18 History [Nephrocaps] Magnesium Gluconate 27 mg PO BID 12/14/18 12/14/18 History hydrALAZINE HCL [Apresoline] 100 mg PO TID 12/14/18 12/14/18 History Allergies Allergy/AdvReac Type Severity Reaction Status Date / Time ciprofloxacin [From Cipro] AdvReac AFFECTED Verified 12/14/18 21:28 EYESIGHT ciprofloxacin HCl AdvReac AFFECTED Verified 12/14/18 21:28 [From Cipro] EYESIGHT Iodinated Contrast- Oral and AdvReac RENAL Verified 12/14/18 21:28 IV Dye FAILURE Physical Exam Vitals: Vital Signs Temp Pulse Pulse Resp BP BP Pulse Ox 12/15/18 08:51 176/79 12/15/18 07:29 97.7 F 85 18 201/80 99 12/15/18 04:00 97.8 F 75 18 176/75 91 L 12/15/18 00:00 98.5 F 75 18 169/67 91 L 12/14/18 23:08 18 12/14/18 20:35 98.7 F 78 18 186/75 93 L 12/14/18 19:40 74 16 163/79 97 12/14/18 19:30 74 15 159/75 95 12/14/18 19:10 75 15 159/75 97 12/14/18 18:50 75 12 174/76 94 L 12/14/18 18:30 75 23 182/72 91 L 12/14/18 18:19 90 L 12/14/18 18:01 98.9 F 78 20 199/79 96 Intake and Output 12/14/18 12/15/18 12/15/18 22:59 06:59 14:59 Intake Total 85.118 Balance 85.118 Intake: Intake, IV Titration 85.118 Amount Heparin Sod,Pork in 0.45% 85.118 NaCl 25,000 unit In 0.45 % NaCl 1 250ml.bag @ 12 UNITS/KG/HR 8.76 mls/hr IV .Q24H COUNT INCLUDES THE [facility] Rx#: [id number] Other: # Voids 1 Weight 73 kg Results 12/14/18 18:27 12/14/18 18:27 Cardiac Enzymes 12/14/18 12/14/18 12/15/18 Range/Units 18:27 18:27 01:18 AST 27 (14-36) U/L Troponin I 0.027 0.029 (0.000-0.034) ng/mL 12/15/18 Range/Units 07:13 AST (14-36) U/L Troponin I 0.030 (0.000-0.034) ng/mL Coagulation 12/14/18 12/15/18 Range/Units 18:27 01:18 PT 10.3 (9.0-12.0) sec APTT 23.7 27.3 (22.0-30.0) sec Lipids 12/15/18 Range/Units 07:13 Triglycerides 619 H (<150) mg/dL Cholesterol 147 (<200) mg/dL HDL Cholesterol 23 L (40-60) mg/dL CBC 12/14/18 Range/Units 18:27 WBC 2.9 L (3.8-10.6) k/uL RBC 2.43 L (3.80-5.40) m/uL Hgb 8.2 L (11.4-16.0) gm/dL Hct 24.0 L (34.0-46.0) % Plt Count 75 L (150-450) k/uL Comprehensive Metabolic Panel 12/14/18 Range/Units 18:27 Sodium 140 (137-145) mmol/L Potassium 4.9 (3.5-5.1) mmol/L Chloride 92 L (98-107) mmol/L Carbon Dioxide 35 H (22-30) mmol/L BUN 42 H (7-17) mg/dL Creatinine 5.79 H (0.52-1.04) mg/dL Glucose 125 H (74-99) mg/dL Calcium 9.3 (8.4-10.2) mg/dL AST 27 (14-36) U/L ALT 39 (9-52) U/L Alkaline Phosphatase 76 (38-126) U/L Total Protein 7.0 (6.3-8.2) g/dL Albumin 4.4 (3.5-5.0) g/dL Current Medications Generic Name Dose Route Start Last Admin Trade Name Freq PRN Reason Stop Dose Admin Hydrocodone Bitart/Acetaminophen 1 each 12/14/18 19:47 12/15/18 05:51 Corn 5-325 PO 1 each Q4H PRN Administration Pain Aspirin 81 mg 12/15/18 09:00 Aspirin PO DAILY ANNI Atorvastatin Calcium 40 mg 12/14/18 21:00 12/14/18 21:45 Lipitor PO 40 mg HS COUNT INCLUDES THE [facility] Administration Calcium Carbonate/Glycine 500 mg 12/14/18 19:47 Tums PO TID PRN Heartburn Cholecalciferol 2,000 unit 12/15/18 09:00 Vitamin D3 (25 Mcg = 1000 Iu) PO DAILY COUNT INCLUDES THE [facility] Clonidine 0.3 mg 12/14/18 22:00 12/14/18 21:46 Catapres PO 0.3 mg TID COUNT INCLUDES THE [facility] Administration Cyclobenzaprine HCl 10 mg 12/14/18 21:00 12/14/18 21:46 Flexeril PO 10 mg HS COUNT INCLUDES THE [facility] Administration Diazepam 5 mg 12/14/18 21:00 Valium PO BID PRN Anxiety Furosemide 80 mg 12/14/18 21:00 12/14/18 21:46 Lasix PO 80 mg BID@0900,1600 COUNT INCLUDES THE [facility] Administration Gabapentin 100 mg 12/14/18 22:00 12/14/18 21:46 Neurontin PO 100 mg TID COUNT INCLUDES THE [facility] Administration Heparin Sodium (Porcine) 0 unit 12/14/18 19:43 Heparin IV Q6HR PRN Low PTT Protocol Hydralazine HCl 100 mg 12/14/18 22:00 12/14/18 21:45 Apresoline PO 100 mg TID COUNT INCLUDES THE [facility] Administration Insulin Aspart 0 unit 12/14/18 21:00 12/15/18 07:45 Novolog SQ Not Given ACHS COUNT INCLUDES THE [facility] Protocol Insulin Aspart 18 unit 12/15/18 07:30 Novolog SQ AC-TID COUNT INCLUDES THE [facility] Insulin Detemir 70 unit 12/14/18 21:00 12/14/18 21:44 Levemir SQ 70 unit HS COUNT INCLUDES THE [facility] Administration Labetalol HCl 200 mg 12/15/18 09:00 Trandate PO BID COUNT INCLUDES THE [facility] Lidocaine/Prilocaine 1 applic 12/14/18 20:00 Emla Cream 2.5%/2.5% TOPICAL DIRECTED PRN FOR DIALYSIS Losartan Potassium 50 mg 12/15/18 09:00 12/15/18 07:51 Cozaar PO 50 mg DAILY COUNT INCLUDES THE [facility] Administration Multivit/Ca Carb/B Cmplx/FA/Prenat 1 each 12/15/18 09:00 Nephrocaps PO DAILY COUNT INCLUDES THE [facility] Nifedipine 90 mg 12/15/18 09:00 Procardia Xl PO DAILY COUNT INCLUDES THE [facility] Nitroglycerin 0.4 mg 12/14/18 19:43 Nitrostat SUBLINGUAL Q5M PRN Chest Pain Pantoprazole Sodium 40 mg 12/15/18 07:30 Protonix PO AC-BRKFST COUNT INCLUDES THE [facility] Prochlorperazine Maleate 5 mg 12/14/18 21:00 12/15/18 06:25 Compazine PO 5 mg BID PRN Administration Nausea Promethazine HCl 6.25 mg 12/14/18 19:47 Phenergan Syrup PO Q4H PRN Cough Ropinirole HCl 1 mg 12/14/18 22:00 12/14/18 21:46 Requip PO 1 mg TID ANNI Administration Sevelamer Carbonate 800 mg 12/14/18 19:47 Renvela PO DAILY PRN SNACKS Sevelamer Carbonate 2,400 mg 12/15/18 07:30 Renvela PO AC-TID COUNT INCLUDES THE [facility] Sodium Chloride 1 spray 12/14/18 21:00 12/14/18 21:46 Deep Sea NASAL Not Given BID COUNT INCLUDES THE [facility] Sodium Polystyrene Sulfonate 30 gm 12/15/18 09:00 Kayexalate PO SUMOWEFR COUNT INCLUDES THE [facility] Tramadol HCl 50 mg 12/14/18 19:47 Ultram PO Q4HR PRN Pain Vitamin E 400 unit 12/15/18 09:00 Vitamin E PO DAILY COUNT INCLUDES THE [facility] Intake and Output 12/14/18 12/15/18 12/15/18 22:59 06:59 14:59 Intake Total 85.118 Balance 85.118 Intake: Intake, IV Titration 85.118 Amount Heparin Sod,Pork in 0.45% 85.118 NaCl 25,000 unit In 0.45 % NaCl 1 250ml.bag @ 12 UNITS/KG/HR 8.76 mls/hr IV .Q24H COUNT INCLUDES THE [facility] Rx#: [id number] Other: # Voids 1 Weight 73 kg 12/14/18 18:27 12/14/18 18:27
--- NOTE | 2018-12-15 10:06 | P.NPCON ---
History of Present Illness - Reason for Consult end stage renal disease - History of Present Illness Reason for consultation: End-stage renal disease History of present illness: Patient is a 53-year-old female seen in renal consultation for end-stage renal disease. Patient was seen and examined in the observation unit. Patient went to hemodialysis yesterday and did complete her treatment. Patient developed squeezing chest pressure while getting hemodialysis and came to the hospital for further care. She is currently on heparin drip. She has been evaluated by cardiology and is scheduled for a cardiac catheterization possibly today. No active chest pain or shortness of breath. Denies edema. No fever or chills. No vomiting or diarrhea. Patient states she just recovered from an upper resp iratory infection and has completed a course of antibiotics. Blood pressure has been running high and medications were adjusted. No other complaints at this time. Vital signs are stable. General: The patient appeared well nourished and normally developed. HEENT: Head exam is unremarkable. Neck is without jugular venous distension. LUNGS: Lungs are clear to auscultation and percussion. Breath sounds decreased. HEART: Rate and Rhythm are regular. First and second heart sounds normal. No murmurs, rubs or gallops. ABDOMEN: Abdominal exam reveals normal bowel sounds. Non-tender and non-distend ed. No evidence of peritonitis. EXTREMITITES: No clubbing, cyanosis, or edema. 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 hemodialysis for acute kidney injury 2 months in 2009 after pancreatic OR, 11/2015 diagnosed w/ chronic kidney disease-hemodialysis //-last hemodialysis 07-10-18, IDDM type II, past DKA, pt states she has dry heaves day after dialysis, UTI, chronic anemia, frequent body cramping, occasional low back pain, carter's palsy x2, past L leg fx, possible liver disease-recent liver bx-results unknown per pt. History of Any Multi-Drug Resistant Organisms: None Reported Past Surgical History: Orthopedic Surgery, Uterine Ablation Additional Past Surgical History / Comment(s): Recent liver biopsy done at [facility] but pt states they have never contacted her with the results, 4/18/18 colonoscopy with polypectomy/bx, pancreatic resection at [facility] 2009, bone marrow biopsies X2-last one 05/19/16,. dialysis chest port x 2 with removals, Left arm shunt placement for dialysis - December 2015 and a revision done with shunt. Past Anesthesia/Blood Transfusion Reactions: No Reported Reaction Additional Past Anesthesia/Blood Transfusion Reaction / Comment(s): Pt has received blood transfusions without reaction. Smoking Status: Former smoker - Past Family History Brother(s) Family Medical History: No Reported History Mother Family Medical History: Cancer Additional Family Medical History / Comment(s): . Father Family Medical History: Hypertension Additional Family Medical History / Comment(s): Father is 70 yrs old. Medications and Allergies Home Medications Medication Instructions Recorded Confirmed Type Atorvastatin [Lipitor] 40 mg PO HS 09/14/15 12/14/18 History Cyclobenzaprine [Flexeril] 10 mg PO HS 09/14/15 12/14/18 History Insulin Glargine [Lantus] 70 unit SQ HS 04/18/16 12/14/18 History cloNIDine HCL 0.3 mg PO TID 12/16/16 12/14/18 History Sevelamer [Renvela] 800 mg PO DAILY PRN 08/21/17 12/14/18 History amLODIPine [Norvasc] 10 mg PO DAILY 10/06/17 12/14/18 History Furosemide [Lasix] 80 mg PO BID 10/22/17 12/14/18 History Metoprolol Tartrate [Lopressor] 50 mg PO BID 10/22/17 12/14/18 History Prochlorperazine [Compazine] 5 mg PO BID 10/26/17 12/14/18 History Diazepam [Valium] 5 mg PO BID 02/10/18 12/14/18 History Sevelamer [Renvela] 2,400 mg PO AC-TID 03/13/18 12/14/18 History Gabapentin [Neurontin] 200 mg PO TID 05/17/18 12/14/18 History INSULIN LISPRO (humaLOG) [humaLOG] See Protocol SQ AC-TID 05/17/18 12/14/18 History INSULIN LISPRO (humaLOG) [humaLOG] 18 unit SQ AC-TID 07/12/18 12/14/18 History Omeprazole 40 mg PO DAILY 11/01/18 12/14/18 History traMADol HCL [Ultram] 50 mg PO Q4HR PRN 11/01/18 12/14/18 History Lidocaine-Prilocaine Cream [Emla 1 applic TOPICAL DIRECTED 11/21/18 12/14/18 History Cream 2.5%/2.5%] Losartan [Cozaar] 50 mg PO DAILY #14 tab 11/21/18 12/14/18 Rx HYDROcodone/APAP 5-325MG [[place] 1 tab PO Q8H PRN 12/01/18 12/14/18 History 5-325] rOPINIRole HCL [Requip] 1 mg PO TID 12/01/18 12/14/18 History Folic Acid-Vit B Complex-Vit C 1 cap PO DAILY 12/14/18 12/14/18 History [Nephrocaps] Magnesium Gluconate 27 mg PO BID 12/14/18 12/14/18 History hydrALAZINE HCL [Apresoline] 100 mg PO TID 12/14/18 12/14/18 History Allergies Allergy/AdvReac Type Severity Reaction Status Date / Time ciprofloxacin [From Cipro] AdvReac AFFECTED Verified 12/14/18 21:28 EYESIGHT ciprofloxacin HCl AdvReac AFFECTED Verified 12/14/18 21:28 [From Cipro] EYESIGHT Iodinated Contrast- Oral and AdvReac RENAL Verified 12/14/18 21:28 IV Dye FAILURE Physical Exam Vitals: Vital Signs Temp Pulse Pulse Resp BP BP Pulse Ox 12/15/18 08:51 176/79 12/15/18 07:29 97.7 F 85 18 201/80 99 12/15/18 04:00 97.8 F 75 18 176/75 91 L 12/15/18 00:00 98.5 F 75 18 169/67 91 L 12/14/18 23:08 18 12/14/18 20:35 98.7 F 78 18 186/75 93 L 12/14/18 19:40 74 16 163/79 97 12/14/18 19:30 74 15 159/75 95 12/14/18 19:10 75 15 159/75 97 12/14/18 18:50 75 12 174/76 94 L 12/14/18 18:30 75 23 182/72 91 L 12/14/18 18:19 90 L 12/14/18 18:01 98.9 F 78 20 199/79 96 Intake and Output 12/14/18 12/15/18 12/15/18 22:59 06:59 14:59 Intake Total 85.118 Balance 85.118 Intake: Intake, IV Titration 85.118 Amount Heparin Sod,Pork in 0.45% 85.118 NaCl 25,000 unit In 0.45 % NaCl 1 250ml.bag @ 12 UNITS/KG/HR 8.76 mls/hr IV .Q24H [facility] Rx#: [id number] Other: # Voids 1 Weight 73 kg Results - Lab Results Most recent lab results Calcium 9.3 mg/dL (8.4-10.2) 12/14/18 18:27 Magnesium 1.7 mg/dL (1.6-2.3) 12/14/18 18:27 12/14/18 18:27 12/14/18 18:27 Assessment and Plan Plan: Assessment: 1. End-stage renal disease maintained on hemodialysis on a Thursday schedule. 2. Chest pain. Rule out acute coronary syndrome. Possible cardiac catheterization today. 3. Anemia of chronic kidney disease. She has required multiple blood transfusions in the past. 4. Hypertension with chronic kidney disease. Blood pressures high. 5. Chronic kidney disease mineral bone disease maintained on Renvela. 6. Insulin-dependent diabetes mellitus. 7. Diastolic CHF with moderate tricuspid regurgitation and moderate to severe pulmonary hypertension. 8. History of pericardial effusion. Plan: Hemodialysis tomorrow. Maintain current antihypertensives. Add hydralazine 10 mg IV every 4 hours if needed for systolic blood pressure greater than 160. Avoid IV hydration. Cleared for cardiac catheterization from nephrology standpoint. Thank you for the consultation. I will continue to follow the patient with you during her hospital stay.
[2018-12-15] MEDS ORDERED: DARBEPOETIN ALFA 40 MCG/0.4 ML SYRINGE SQ SCH (11:00)
[2018-12-15 11:41] LABS: Glucose,Whole Blood 225 mg/dL (75-99)
--- NOTE | 2018-12-15 12:26 | P.CONS ---
History of Present Illness - Reason for Consult Consult date: 12/15/18 pancytopenia Requesting physician: Rodolfo Bragg - Chief Complaint Chest Pain - History of Present Illness Ms Desouza is a pleasant WF, with multiple medical problems, who was seen by Dr De in 2009-, for low blood counts. Per the pt , this related to her WBC. She had a bone marrow done, and states that she was told she had " less than 5% risk of cancer". She did not f/u with Hem-Onc since, till 07/23. She was admitted to [facility] with sepsis due to toe infection. She developed pancytopenia, which was felt to be due to sepsis, with counts showing some improvement as she recovered. She has a h/o severe pancreatitis resulting in renal failure in 2009, requiring HD for a few mths. She developed AUDREY in 07/23 again, but recovered. She was placed back on HD in 11/23. She was noted to have a Hgb of 6.9 on 01/10/16 and received PRBC transfusion. Hgb fell to 6.2 again on 03/12/16 requiring repeat transfusion. She denied obvious bleeding. She was thus referred here for further evaluation and recommendations. Records and labs from 07/23 and other admissions to [facility] since were reviewed. Her bone marrow from 2010 had shown dyspoeitic changes. Additional labs were ordered which were negative other than a mild kappa elevation vs lambda with a ratio of 2.49 She is being evaluated for a renal transplant at [facility]. Thus a repeat bone marrow was done on 05/19/16, again showing mild dyspoeitic changes, with no evidence of progression. It was felt that her anemia was due to a combination of underlying mild MDS and AOCKD. She was receiving aransp and following with [facility], She now presents with atypical chest discomfort (neg trop), Recent positive stress test, Elevated RVSP on echo. Hypertension, blood pressure has been elevated since admission and cardiology is following and planning for cardiac catherization with Dr. Tesfaye this admission. Hematology has been asked to evaluate secondary to pancytopenia. Review of Systems A 14 point review of systems was assessed and completed and are all negative except for HPI Past Medical History Past Medical History: Blood Disorder, Heart Failure, Diabetes Mellitus, Dialysis, Hyperlipidemia, Hypertension, Liver Disease, Pneumonia, Renal Disease Additional Past Medical History / Comment(s): Bilateral cataracts, recently diagnosed with bilateral retinal hemorrhages, hypertriglyceridemia-induced acute pancreatitis, THEN necrotizing pancreatitis. hemodialysis for acute kidney injury 2 months in 2009 after pancreatic OR, 11/2015 diagnosed w/ chronic kidney disease-hemodialysis /-last hemodialysis 07-10-18, IDDM type II, past DKA, pt states she has dry heaves day after dialysis, UTI, chronic anemia, frequent body cramping, occasional low back pain, carter's palsy x2, past L leg fx, possible liver disease-recent liver bx-results unknown per pt. History of Any Multi-Drug Resistant Organisms: None Reported Past Surgical History: Orthopedic Surgery, Uterine Ablation Additional Past Surgical History / Comment(s): Recent liver biopsy done at [facility] but pt states they have never contacted her with the results, 08/26/17 colonoscopy with polypectomy/bx, pancreatic resection at [facility] 2009, bone marrow biopsies X2-last one 05/19/16,. dialysis chest port x 2 with removals, Left arm shunt placement for dialysis - December 2015 and a revision done with shunt. Past Anesthesia/Blood Transfusion Reactions: No Reported Reaction Additional Past Anesthesia/Blood Transfusion Reaction / Comm: Pt has received blood transfusions without reaction. Smoking Status: Former smoker - Past Family History Brother(s) Family Medical History: No Reported History Mother Family Medical History: Cancer Additional Family Medical History / Comment(s): . Father Family Medical History: Hypertension Additional Family Medical History / Comment(s): Father is 70 yrs old. Medications and Allergies Home Medications Medication Instructions Recorded Confirmed Type Cyclobenzaprine [Flexeril] 10 mg PO HS 09/14/15 12/14/18 History Insulin Glargine [Lantus] 70 unit SQ HS 04/18/16 12/14/18 History cloNIDine HCL 0.3 mg PO TID 12/16/16 12/14/18 History Sevelamer [Renvela] 800 mg PO DAILY PRN 08/21/17 12/14/18 History Furosemide [Lasix] 80 mg PO BID 10/22/17 12/14/18 History Prochlorperazine [Compazine] 5 mg PO BID 10/26/17 12/14/18 History Diazepam [Valium] 5 mg PO BID 02/10/18 12/14/18 History Sevelamer [Renvela] 2,400 mg PO AC-TID 03/13/18 12/14/18 History Gabapentin [Neurontin] 200 mg PO TID 05/17/18 12/14/18 History INSULIN LISPRO (humaLOG) [humaLOG] See Protocol SQ AC-TID 05/17/18 12/14/18 History INSULIN LISPRO (humaLOG) [humaLOG] 18 unit SQ AC-TID 07/12/18 12/14/18 History Omeprazole 40 mg PO DAILY 11/01/18 12/14/18 History traMADol HCL [Ultram] 50 mg PO Q4HR PRN 11/01/18 12/14/18 History Lidocaine-Prilocaine Cream [Emla 1 applic TOPICAL DIRECTED 11/21/18 12/14/18 History Cream 2.5%/2.5%] HYDROcodone/APAP 5-325MG [[place] 1 tab PO Q8H PRN 12/01/18 12/14/18 History 5-325] rOPINIRole HCL [Requip] 1 mg PO TID 12/01/18 12/14/18 History Folic Acid-Vit B Complex-Vit C 1 cap PO DAILY 12/14/18 12/14/18 History [Nephrocaps] Magnesium Gluconate 27 mg PO BID 12/14/18 12/14/18 History hydrALAZINE HCL [Apresoline] 100 mg PO TID 12/14/18 12/14/18 History Aspirin EC [Ecotrin Low Dose] 81 mg PO DAILY #30 tablet. 12/17/18 Rx Atorvastatin [Lipitor] 80 mg PO HS #30 tab 12/17/18 Rx Labetalol [Trandate] 400 mg PO BID #120 tab 12/17/18 Rx NIFEdipine XL [Procardia XL] 90 mg PO DAILY #30 tab.er.24 12/17/18 Rx Allergies Allergy/AdvReac Type Severity Reaction Status Date / Time ciprofloxacin [From Cipro] AdvReac AFFECTED Verified 12/14/18 21:28 EYESIGHT ciprofloxacin HCl AdvReac AFFECTED Verified 12/14/18 21:28 [From Cipro] EYESIGHT Iodinated Contrast- Oral and AdvReac RENAL Verified 12/14/18 21:28 IV Dye FAILURE Physical Exam Vitals: Vital Signs Temp Pulse Pulse Resp BP BP Pulse Ox 12/15/18 08:51 176/79 12/15/18 07:29 97.7 F 85 18 201/80 99 12/15/18 04:00 97.8 F 75 18 176/75 91 L 12/15/18 00:00 98.5 F 75 18 169/67 91 L 12/14/18 23:08 18 12/14/18 20:35 98.7 F 78 18 186/75 93 L 12/14/18 19:40 74 16 163/79 97 12/14/18 19:30 74 15 159/75 95 12/14/18 19:10 75 15 159/75 97 12/14/18 18:50 75 12 174/76 94 L 12/14/18 18:30 75 23 182/72 91 L 12/14/18 18:19 90 L 12/14/18 18:01 98.9 F 78 20 199/79 96 Intake and Output 12/14/18 12/15/18 12/15/18 22:59 06:59 14:59 Intake Total 85.118 Balance 85.118 Intake: Intake, IV Titration 85.118 Amount Heparin Sod,Pork in 0.45% 85.118 NaCl 25,000 unit In 0.45 % NaCl 1 250ml.bag @ 12 UNITS/KG/HR 8.76 mls/hr IV .Q24H [facility] Rx#: [id number] Other: # Voids 1 Weight 73 kg General: Alert and Oriented x3, No Acute Distress Head: Normocytic, Atraumatic Neck: Supple Mouth: No Lesions, No Thrush Eyes: Non-sclerotic No Palpable cervical, supraclavicular, axillary adenopathy Heart: Regular Rate, Regular Rhythm Lungs: Clear to Ausculations, No Wheeze, No Rhonchi, Diminishe bilateral lower lobes, No increased respiratory effort noted Abdomen: Soft, Non-Distended, Non-Tended, BSx4 Extremities: No Edema, Equal Strength Neurological: No Focal Defects: No sensory or motor deficits noted Psych: Calm and cooperative Results CBC & Chem 7: 12/16/18 06:35 12/17/18 09:15 Labs: Abnormal Lab Results - Last 24 Hours (Table) 12/14/18 12/14/18 12/14/18 Range/Units 18:27 18:27 20:30 WBC 2.9 L (3.8-10.6) k/uL RBC 2.43 L (3.80-5.40) m/uL Hgb 8.2 L (11.4-16.0) gm/dL Hct 24.0 L (34.0-46.0) % RDW 17.3 H (11.5-15.5) % Plt Count 75 L (150-450) k/uL Lymphocytes # 0.3 L (1.0-4.8) k/uL Chloride 92 L (98-107) mmol/L Carbon Dioxide 35 H (22-30) mmol/L BUN 42 H (7-17) mg/dL Creatinine 5.79 H (0.52-1.04) mg/dL Glucose 125 H (74-99) mg/dL POC Glucose (mg/dL) 147 H (75-99) mg/dL Triglycerides (<150) mg/dL HDL Cholesterol (40-60) mg/dL 12/15/18 12/15/18 Range/Units 06:57 07:13 WBC (3.8-10.6) k/uL RBC (3.80-5.40) m/uL Hgb (11.4-16.0) gm/dL Hct (34.0-46.0) % RDW (11.5-15.5) % Plt Count (150-450) k/uL Lymphocytes # (1.0-4.8) k/uL Chloride (98-107) mmol/L Carbon Dioxide (22-30) mmol/L BUN (7-17) mg/dL Creatinine (0.52-1.04) mg/dL Glucose (74-99) mg/dL POC Glucose (mg/dL) 133 H (75-99) mg/dL Triglycerides 619 H (<150) mg/dL HDL Cholesterol 23 L (40-60) mg/dL Chest x-ray: report reviewed Assessment and Plan (1) Pancytopenia Current Visit: No Status: Chronic Priority: Medium Code(s): D61.818 - OTHER PANCYTOPENIA SNOMED Code(s): 631078700 (2) Chest pain Current Visit: Yes Status: Acute Code(s): R07.9 - CHEST PAIN, UNSPECIFIED SNOMED Code(s): 01520322 (3) Chronic renal failure Current Visit: Yes Status: Acute Code(s): N18.9 - CHRONIC KIDNEY DISEASE, UNSPECIFIED SNOMED Code(s): 14894888 (4) Congestive heart failure Current Visit: No Status: Acute Code(s): I50.9 - HEART FAILURE, UNSPECIFIED SNOMED Code(s): 20232496 (5) ESRD (end stage renal disease) on dialysis Current Visit: No Status: Acute Code(s): N18.6 - END STAGE RENAL DISEASE; Z99.2 - DEPENDENCE ON RENAL DIALYSIS SNOMED Code(s): 731062111 Plan: Assessment and Recommendations: Pancytopenia: - Chronic with multifactorial reasons. - Bone Marrow Biopsy in May 2016 - Likely mild Dysplasia although no confirmed hematological malignancy at that time - Blood Counts have remained close to baseline over the years without drastic change. - WBC = 2.9, Lymphocytes = 0.3, Hemoglobin (normocytic, normochromic) = 8.2 and secondary to chronic End Stage Renal Disease and has been stable on Epogen injections - following with nephrology for this. Platelet count = 75K. Baseline ranges 80K and 120K. This may appear worsened with increased inflammation, medications, and/or infection. - Recheck cbc today. If platlets continue to decrease is resonable to check for heparin antibiodies, although less likely, but possibility with exposures to heparin with diaylysis. - Cardiac intervention considered safe with platelet count greater than 50K. - Continue with Epogen per nephrology. Multiple other co-morbidies per primary, cardiology, and nephrology teams Thank you for consultation and we will follow along with you. LUIS Holbrook
--- NOTE | 2018-12-15 12:47 | ECHOF ---
Referral Reason:cp MEASUREMENTS -------- HEIGHT: 162.6 cm WEIGHT: 72.6 kg BP: 176/55 RVIDd: 3.1 cm (< 3.3) IVSd: 1.7 cm (0.6 - 1.1) LVIDd: 4.4 cm (3.9 - 5.3) LVPWd: 1.6 cm (0.6 - 1.1) IVSs: 2.0 cm LVIDs: 2.6 cm LVPWs: 2.6 cm LA Diam: 4.8 cm (2.7 - 3.8) LAESV Index (A-L): 45.01 ml/m Ao Diam: 2.7 cm (2.0 - 3.7) AV Cusp: 1.5 cm (1.5 - 2.6) LA Diam: 5.2 cm (2.7 - 3.8) MV EXCURSION: 19.436 mm (> 18.000) MV EF SLOPE: 72 mm/s (70 - 150) EPSS: 0.4 cm MV E Armando: 1.59 m/s MV DecT: 221 ms MV A Armando: 0.81 m/s MV E/A Ratio: 1.96 RAP: 5.00 mmHg RVSP: 55.63 mmHg FINDINGS -------- Sinus rhythm. This was a technically good study. The left ventricular size is normal. There is severe concentric left ventricular hypertrophy. Ove rall left ventricular systolic function is low-normal with, an EF between 50 - 55 %. The right ventricle is normal in size. The left atrium is markedly dilated. LA is severely dilated >40 ml/m2 The right atrial size is normal. There is mild aortic valve sclerosis. Trace to mild aortic regurgitation. Mild mitral annular calcification present. Mild mitral regurgitation is present. [id number] tricuspid regurgitation present. There is moderate pulmonary hypertension. The r ight ventricular systolic pressure, as measured by Doppler, is 55.63mmHg. There is no pulmonic regurgitation present. The aortic root size is normal. There is a small, generalized pericardial effusion present. Small Pleural Effusion. CONCLUSIONS -------- 1. Sinus rhythm. 2. This was a technically good study. 3. The left ventricular size is normal. 4. There is severe concentric left ventricular hypertrophy. 5. Overall left ventricular systolic function is low-normal with, an EF between 50 - 55 %. 6. The right ventricle is normal in size. 7. The left atrium is markedly dilated. 8. LA is severely dilated >40 ml/m2 9. The right atrial size is normal. 10. There is mild aortic valve sclerosis. 11. Trace to mild aortic regurgitation. 12. Mild mitral annular calcification present. 13. Mild mitral regurgitation is present. 14. Qmrs-[id number] tricuspid regurgitation present. 15. There is moderate pulmonary hypertension. 16. The right ventricular systolic pressure, as measured by Doppler, is 55.63mmHg. 17. There is no pulmonic regurgitation present. 18. The aortic root size is normal. 19. There is a small, generalized pericardial effusion present. 20. Small Pleural Effusion. DOBBY LOOM WEAVER: Katie Stern RDCS
[2018-12-15 13:06] LABS: Anisocytosis Slight; Basophils % (A) 1 %; Eosinophils # (A) 0.1 k/uL (0-0.7); Eosinophils % (A) 2 %; HGB 8.1 gm/dL (11.4-16.0); Lymphocytes # (A) 0.3 k/uL (1.0-4.8); Lymphocytes % (A) 14 %; MCH 33.9 pg (25.0-35.0); MCHC 33.7 g/dL (31.0-37.0); MCV 100.5 fL (80.0-100.0); Macrocytosis Slight; Mean Platelet Volume 8.9; Monocytes # (A) 0.1 k/uL (0-1.0); Monocytes % (A) 6 %; Neutrophils # (A) 1.7 k/uL (1.3-7.7); Neutrophils % (A) 77 %; Poikilocytosis Slight; RBC 2.38 m/uL (3.80-5.40); RDW 16.8 % (11.5-15.5); WBC 2.3 k/uL (3.8-10.6)
[2018-12-15 13:14] LABS: Albumin 4.2 g/dL (3.5-5.0); Platelet Count 68 k/uL (150-450); Total Bilirubin 0.9 mg/dL (0.2-1.3); Total Protein 6.6 g/dL (6.3-8.2); Uric Acid 5.9 mg/dL (3.7-7.4)
[2018-12-15 13:27] LABS: Potassium 6.7 mmol/L (3.5-5.1)
[2018-12-15 13:29] LABS: Reticulocyte % 2.7 % (0.5-2.0)
[2018-12-15] MEDS ORDERED: CALCIUM GLUCONATE 1 GM in SODIUM CHLORIDE 0.9% 100 ML IVPB ONE (13:36)
[2018-12-15] MEDS ORDERED: DEXTROSE 50% SYRINGE 50 ML IVP STA (13:37)
[2018-12-15] MEDS ORDERED: INSULIN REGULAR 100 UNIT/ML VIAL IV ONE (13:37)
[2018-12-15] MEDS ORDERED: DEXTROSE 10 % IN WATER 250 ML IV ONE (13:40)
--- NOTE | 2018-12-15 16:19 | P.HPIM ---
History of Present Illness H&P Date: 12/15/18 Chief Complaint: Chest pain This is a 53-year-old female with history of end-stage kidney disease on hemodialysis, chronic anemia, hypertension, moderate tricuspid regurgitation, pulmonary hypertension, diastolic CHF, pericardial effusion, diabetes mellitus and multiple other medical issues presented to the ER with complaints of chest pain radiating to left shoulder and arm, but has to yesterday evening. Reports she had been lifting with that arm yesterday and pain fluctuates with extreme movement. Reproducible pain. Reports she had dialysis yesterday morning , developed squeezing chest pain during her dialysis session,proceeded to the ER. Abnormal stress test approximately 2 months ago had been scheduled for cardiac catheterization last Thursday but was unable to make it. EKG reporting normal sinus rhythm with T-wave abnormalities in lateral leads, compared by ER physician to prior EKG, similar. Troponins negative 3. Triglycerides 619, statin increased. Hemoglobin 8.2, improved from prior labwork. Chest x-ray nonacute. Afebrile. Evaluated by cardiology, nephrology, oncology/hematology with recommendations noted and appreciated. Hypertensive, amlodipine, metoprolol discontinued, Procardia and labetalol initiated. Hyperkalemic, patient had refused Kayexalate Earlier. Review of Systems ROS Statement: Those systems with pertinent positive or pertinent negative responses have been documented in the HPI. ROS Other: All systems not noted in ROS Statement are negative. 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 hemodialysis for acute kidney injury 2 months in 2009 after pancreatic OR, 11/2015 diagnosed w/ chronic kidney disease-hemodialysis //-last hemodialysis 07-10-18, IDDM type II, past DKA, pt states she has dry heaves day after dialysis, UTI, chronic anemia, frequent body cramping, occasional low back pain, carter's palsy x2, past L leg fx, possible liver disease-recent liver bx-results unknown per pt. History of Any Multi-Drug Resistant Organisms: None Reported Past Surgical History: Orthopedic Surgery, Uterine Ablation Additional Past Surgical History / Comment(s): Recent liver biopsy done at [place] but pt states they have never contacted her with the results, 08/26/17 colonoscopy with polypectomy/bx, pancreatic resection at [facility] 2009, bone marrow biopsies X2-last one 05/19/16,. dialysis chest port x 2 with removals, Left arm shunt placement for dialysis - December 2015 and a revision done with shunt. Past Anesthesia/Blood Transfusion Reactions: No Reported Reaction Additional Past Anesthesia/Blood Transfusion Reaction / Comment(s): Pt has received blood transfusions without reaction. Smoking Status: Former smoker - Past Family History Brother(s) Family Medical History: No Reported History Mother Family Medical History: Cancer Additional Family Medical History / Comment(s): . Father Family Medical History: Hypertension Additional Family Medical History / Comment(s): Father is 70 yrs old. Medications and Allergies Home Medications Medication Instructions Recorded Confirmed Type Atorvastatin [Lipitor] 40 mg PO HS 09/14/15 12/14/18 History Cyclobenzaprine [Flexeril] 10 mg PO HS 09/14/15 12/14/18 History Insulin Glargine [Lantus] 70 unit SQ HS 04/18/16 12/14/18 History cloNIDine HCL 0.3 mg PO TID 12/16/16 12/14/18 History Sevelamer [Renvela] 800 mg PO DAILY PRN 08/21/17 12/14/18 History amLODIPine [Norvasc] 10 mg PO DAILY 10/06/17 12/14/18 History Furosemide [Lasix] 80 mg PO BID 10/22/17 12/14/18 History Metoprolol Tartrate [Lopressor] 50 mg PO BID 10/22/17 12/14/18 History Prochlorperazine [Compazine] 5 mg PO BID 10/26/17 12/14/18 History Diazepam [Valium] 5 mg PO BID 02/10/18 12/14/18 History Sevelamer [Renvela] 2,400 mg PO AC-TID 03/13/18 12/14/18 History Gabapentin [Neurontin] 200 mg PO TID 05/17/18 12/14/18 History INSULIN LISPRO (humaLOG) [humaLOG] See Protocol SQ AC-TID 05/17/18 12/14/18 History INSULIN LISPRO (humaLOG) [humaLOG] 18 unit SQ AC-TID 07/12/18 12/14/18 History Omeprazole 40 mg PO DAILY 11/01/18 12/14/18 History traMADol HCL [Ultram] 50 mg PO Q4HR PRN 11/01/18 12/14/18 History Lidocaine-Prilocaine Cream [[place] 1 applic TOPICAL DIRECTED 11/21/18 12/14/18 History Cream 2.5%/2.5%] Losartan [Cozaar] 50 mg PO DAILY #14 tab 11/21/18 12/14/18 Rx HYDROcodone/APAP 5-325MG [[place] 1 tab PO Q8H PRN 12/01/18 12/14/18 History 5-325] rOPINIRole HCL [Requip] 1 mg PO TID 12/01/18 12/14/18 History Folic Acid-Vit B Complex-Vit C 1 cap PO DAILY 12/14/18 12/14/18 History [Nephrocaps] Magnesium Gluconate 27 mg PO BID 12/14/18 12/14/18 History hydrALAZINE HCL [Apresoline] 100 mg PO TID 12/14/18 12/14/18 History Allergies Allergy/AdvReac Type Severity Reaction Status Date / Time ciprofloxacin [From Cipro] AdvReac AFFECTED Verified 12/14/18 21:28 EYESIGHT ciprofloxacin HCl AdvReac AFFECTED Verified 12/14/18 21:28 [From Cipro] EYESIGHT Iodinated Contrast- Oral and AdvReac RENAL Verified 12/14/18 21:28 IV Dye FAILURE Physical Exam Vitals: Vital Signs Temp Pulse Pulse Resp BP BP Pulse Ox 12/15/18 15:39 97.5 F L 68 18 171/74 96 12/15/18 14:02 68 149/70 97 12/15/18 11:54 97.9 F 70 17 184/72 100 12/15/18 08:51 176/79 12/15/18 07:29 97.7 F 85 18 201/80 99 12/15/18 04:00 97.8 F 75 18 176/75 91 L 12/15/18 00:00 98.5 F 75 18 169/67 91 L 12/14/18 23:08 18 12/14/18 20:35 98.7 F 78 18 186/75 93 L 12/14/18 19:40 74 16 163/79 97 12/14/18 19:30 74 15 159/75 95 12/14/18 19:10 75 15 159/75 97 12/14/18 18:50 75 12 174/76 94 L 12/14/18 18:30 75 23 182/72 91 L 12/14/18 18:19 90 L 12/14/18 18:01 98.9 F 78 20 199/79 96 Intake and Output 12/15/18 12/15/18 12/15/18 06:59 14:59 22:59 Intake Total 85.118 Balance 85.118 Intake: Intake, IV Titration 85.118 Amount Heparin Sod,Pork in 0.45% 85.118 NaCl 25,000 unit In 0.45 % NaCl 1 250ml.bag @ 12 UNITS/KG/HR 8.76 mls/hr IV .Q24H [facility] Rx#: [id number] Other: # Voids 1 PHYSICAL EXAM: VITAL SIGNS: As above GENERAL: Sitting up in bed, no acute distress HEENT: Conjunctivae normal. eyes normal. NECK: No JVD. No thyroid enlargement. No LNs CARDIOVASCULAR: S1, S2 regular. No murmur RESPIRATION: Breath sounds diminished in the bases. No rhonchi or crackles. No bronchial breathing. ABDOMEN: Soft, nontender . No guarding. no masses palpable. No ascites, No hepatosplenomegaly.Bowel sounds heard. LEGS: No edema. no swelling PSYCHIATRY: Alert and oriented X3, mood and affect normal. NERVOUS SYSTEM: Cranial N 2-12 grossly normal. Moves all 4 limbs. Diffuse weakness No focal deficits. Strength and sensation grossly intact.. Skin: no lesions, no rash Results CBC & Chem 7: 12/15/18 12:38 12/15/18 12:38 Labs: Abnormal Lab Results - Last 24 Hours (Table) 12/14/18 12/14/18 12/14/18 Range/Units 18:27 18:27 20:30 WBC 2.9 L (3.8-10.6) k/uL RBC 2.43 L (3.80-5.40) m/uL Hgb 8.2 L (11.4-16.0) gm/dL Hct 24.0 L (34.0-46.0) % MCV (80.0-100.0) fL RDW 17.3 H (11.5-15.5) % Plt Count 75 L (150-450) k/uL Lymphocytes # 0.3 L (1.0-4.8) k/uL Retic Count (0.5-2.0) % Potassium (3.5-5.1) mmol/L Chloride 92 L (98-107) mmol/L Carbon Dioxide 35 H (22-30) mmol/L BUN 42 H (7-17) mg/dL Creatinine 5.79 H (0.52-1.04) mg/dL Glucose 125 H (74-99) mg/dL POC Glucose (mg/dL) 147 H (75-99) mg/dL Triglycerides (<150) mg/dL HDL Cholesterol (40-60) mg/dL 12/15/18 12/15/18 12/15/18 Range/Units 06:57 07:13 11:39 WBC (3.8-10.6) k/uL RBC (3.80-5.40) m/uL Hgb (11.4-16.0) gm/dL Hct (34.0-46.0) % MCV (80.0-100.0) fL RDW (11.5-15.5) % Plt Count (150-450) k/uL Lymphocytes # (1.0-4.8) k/uL Retic Count (0.5-2.0) % Potassium (3.5-5.1) mmol/L Chloride (98-107) mmol/L Carbon Dioxide (22-30) mmol/L BUN (7-17) mg/dL Creatinine (0.52-1.04) mg/dL Glucose (74-99) mg/dL POC Glucose (mg/dL) 133 H 225 H (75-99) mg/dL Triglycerides 619 H (<150) mg/dL HDL Cholesterol 23 L (40-60) mg/dL 12/15/18 12/15/18 Range/Units 12:38 12:38 WBC 2.3 L (3.8-10.6) k/uL RBC 2.38 L (3.80-5.40) m/uL Hgb 8.1 L (11.4-16.0) gm/dL Hct 24.0 L (34.0-46.0) % MCV 100.5 H (80.0-100.0) fL RDW 16.8 H (11.5-15.5) % Plt Count 68 L (150-450) k/uL Lymphocytes # 0.3 L (1.0-4.8) k/uL Retic Count 2.7 H (0.5-2.0) % Potassium 6.7 H* (3.5-5.1) mmol/L Chloride 90 L (98-107) mmol/L Carbon Dioxide 34 H (22-30) mmol/L BUN 60 H (7-17) mg/dL Creatinine 7.43 H* (0.52-1.04) mg/dL Glucose 204 H (74-99) mg/dL POC Glucose (mg/dL) (75-99) mg/dL Triglycerides (<150) mg/dL HDL Cholesterol (40-60) mg/dL Thrombosis Risk Factor Assmnt - Choose All That Apply Each Factor Represents 1 point: Age 41-60 years Thrombosis Risk Factor Assessment Total Risk Factor Score: 1 Thrombosis Risk Factor Assessment Level: Low Risk Assessment and Plan Assessment: -Chest pain, unstable angina, left shoulder pain rule out acute coronary syndrome, possible cardiac catheterization today -Hypochloremia -End-stage renal disease on hemodialysis Thursday -Hyperkalemic secondary to the above -Hypertension -Diabetes mellitus -Moderate tricuspid regurgitation -Pulmonary hypertension -Diastolic CHF, chronic -History of pericardial effusion -Pancytopenia Plan: Continue current medication regime ,monitoring and symptomatic treatment. Cardiac catheterization scheduled for tomorrow. Hemodialysis tomorrow. An tihypertensives adjusted as per cardiology. Statin increased. Home meds have been reviewed and resumed accordingly. Repeat labs ordered for a.m. Follow closely with multiple consults. The impression and plan of care has been dictated as directed. : I performed a history and examination of this patient, discussed the same with the dictator. I agree with the dictator's note ,documented as a scribe. Any additional findings or plans will be noted. Time taken: 35 minutes
[2018-12-15 16:33] LABS: Glucose,Whole Blood 127 mg/dL (75-99)
[2018-12-15 17:43] LABS: Iron Saturation 41.48 (12.00-45.00)
[2018-12-15 19:16] LABS: Albumin 4.5 g/dL (3.5-5.0); Calcium 9.5 mg/dL (8.4-10.2); Potassium 4.5 mmol/L (3.5-5.1); Total Bilirubin 1.3 mg/dL (0.2-1.3)
[2018-12-15] MEDS: traMADol 50 MG TAB PO PRN (19:54)
[2018-12-15] MEDS: CYCLOBENZAPRINE 5 MG TAB PO SCH (19:55)
[2018-12-15] MEDS: INSULIN DETEMIR (LEVEMIR) 100 UNIT/ML SYR SQ SCH (19:56)
[2018-12-15] MEDS: DIAZEPAM 5 MG TAB PO PRN (19:56)
[2018-12-15] MEDS: ATORVASTATIN 80 MG TAB PO SCH (19:56)
[2018-12-15 20:06] LABS: Glucose,Whole Blood 169 mg/dL (75-99)
[2018-12-16] MEDS: HYDROcodone/APAP 5-325MG 1 EACH TAB PO PRN ×3 (04:01→20:26)
[2018-12-16] MEDS: SEVELAMER 800 MG TAB PO SCH ×4 (06:40→17:36)
[2018-12-16] MEDS: CHOLECALCIFEROL 1,000 UNIT TAB PO SCH (06:40)
[2018-12-16] MEDS: VITAMIN E (DL,TOCOPHERYL ACET) 400 UNIT CAP PO SCH (06:40)
[2018-12-16] MEDS: LABETALOL 200 MG TAB PO SCH ×2 (06:40→20:25)
[2018-12-16] MEDS: LOSARTAN 50 MG TAB PO SCH (06:40)
[2018-12-16] MEDS: FOLIC ACID-VIT B COMPLEX-VIT C 1 CAP PO SCH (06:40)
[2018-12-16] MEDS: PANTOPRAZOLE 40 MG TABLET PO SCH (06:40)
[2018-12-16] MEDS: hydrALAZINE HCL 50 MG TAB PO SCH ×3 (06:41→20:26)
[2018-12-16] MEDS: ASPIRIN 81 MG PO SCH (06:41)
[2018-12-16] MEDS: GABAPENTIN 100 MG CAP PO SCH ×3 (06:41→20:26)
[2018-12-16] MEDS: cloNIDine HCL 0.1 MG TAB PO SCH ×3 (06:41→20:25)
[2018-12-16] MEDS: NIFEdipine XL 90 MG TAB.ER.24 PO SCH (06:42)
[2018-12-16] MEDS: SODIUM CHLORIDE 0.65% NASAL SPRAY 44 ML BTL NASAL SCH ×2 (06:42→20:28)
[2018-12-16 06:58] LABS: Glucose,Whole Blood 146 mg/dL (75-99)
[2018-12-16 07:15] LABS: Anisocytosis Slight; Basophils % (A) 0 %; Eosinophils # (A) 0.1 k/uL (0-0.7); Eosinophils % (A) 3 %; HGB 8.4 gm/dL (11.4-16.0); Lymphocytes # (A) 0.3 k/uL (1.0-4.8); Lymphocytes % (A) 11 %; MCH 34.6 pg (25.0-35.0); MCHC 34.9 g/dL (31.0-37.0); MCV 99.2 fL (80.0-100.0); Macrocytosis Slight; Mean Platelet Volume 8.5; Monocytes # (A) 0.1 k/uL (0-1.0); Monocytes % (A) 6 %; Neutrophils % (A) 80 %; RBC 2.42 m/uL (3.80-5.40); RDW 16.4 % (11.5-15.5); WBC 2.5 k/uL (3.8-10.6)
[2018-12-16] MEDS: INSULIN ASPART (NovoLOG) 100 UNIT/ML VIAL SQ SCH ×7 (07:16→20:24)
[2018-12-16 07:25] LABS: Platelet Count 71 k/uL (150-450)
--- NOTE | 2018-12-16 09:38 | P.PN ---
Subjective Patient is seen in follow-up for end-stage renal disease. She is maintained on hemodialysis on a Thursday schedule. No chest pain or shortness of breath today. Scheduled for cardiac catheterization today. Potassium level better after dialysis yesterday. Vital signs are stable. General: The patient appeared well nourished and normally developed. HEENT: Head exam is unremarkable. Neck is without jugular venous distension. LUNGS: Lungs are clear to auscultation and percussion. Breath sounds decreased. HEART: Rate and Rhythm are regular. First and second heart sounds normal. No murmurs, rubs or gallops. ABDOMEN: Abdominal exam reveals normal bowel sounds. Non-tender and non- distended. No evidence of peritonitis. EXTREMITITES: No clubbing, cyanosis, or edema. Objective - Vital Signs Vital signs: Vital Signs Temp 97.7 F 12/16/18 08:00 Pulse 79 12/16/18 08:00 Resp 17 12/16/18 08:00 BP 165/69 12/16/18 08:00 Pulse Ox 97 12/16/18 08:00 Intake & Output 12/15/18 12/16/18 12/16/18 18:59 06:59 18:59 Output Total 1000 Balance -1000 Output: Hemodialysis 1000 Other: # Voids 2 1 - Labs CBC & Chem 7: 12/16/18 06:35 12/15/18 18:29 Labs: Abnormal Lab Results - Last 24 Hours (Table) 12/15/18 12/15/18 12/15/18 Range/Units 07:16 11:39 12:38 WBC 2.3 L (3.8-10.6) k/uL RBC 2.38 L (3.80-5.40) m/uL Hgb 8.1 L (11.4-16.0) gm/dL Hct 24.0 L (34.0-46.0) % MCV 100.5 H (80.0-100.0) fL RDW 16.8 H (11.5-15.5) % Plt Count 68 L (150-450) k/uL Lymphocytes # 0.3 L (1.0-4.8) k/uL Retic Count 2.7 H (0.5-2.0) % Sodium (137-145) mmol/L Potassium (3.5-5.1) mmol/L Chloride (98-107) mmol/L Carbon Dioxide (22-30) mmol/L BUN (7-17) mg/dL Creatinine (0.52-1.04) mg/dL Glucose (74-99) mg/dL POC Glucose (mg/dL) 225 H (75-99) mg/dL Ferritin 1582.3 H (10.0-291.0) ng/mL 12/15/18 12/15/18 12/15/18 Range/Units 12:38 16:32 18:29 WBC (3.8-10.6) k/uL RBC (3.80-5.40) m/uL Hgb (11.4-16.0) gm/dL Hct (34.0-46.0) % MCV (80.0-100.0) fL RDW (11.5-15.5) % Plt Count (150-450) k/uL Lymphocytes # (1.0-4.8) k/uL Retic Count (0.5-2.0) % Sodium 136 L (137-145) mmol/L Potassium 6.7 H* (3.5-5.1) mmol/L Chloride 90 L 93 L (98-107) mmol/L Carbon Dioxide 34 H 32 H (22-30) mmol/L BUN 60 H 38 H (7-17) mg/dL Creatinine 7.43 H* 4.72 H (0.52-1.04) mg/dL Glucose 204 H 108 H (74-99) mg/dL POC Glucose (mg/dL) 127 H (75-99) mg/dL Ferritin (10.0-291.0) ng/mL 12/15/18 12/16/18 12/16/18 Range/Units 19:58 06:35 06:56 WBC 2.5 L (3.8-10.6) k/uL RBC 2.42 L (3.80-5.40) m/uL Hgb 8.4 L (11.4-16.0) gm/dL Hct 24.0 L (34.0-46.0) % MCV (80.0-100.0) fL RDW 16.4 H (11.5-15.5) % Plt Count 71 L (150-450) k/uL Lymphocytes # 0.3 L (1.0-4.8) k/uL Retic Count (0.5-2.0) % Sodium (137-145) mmol/L Potassium (3.5-5.1) mmol/L Chloride (98-107) mmol/L Carbon Dioxide (22-30) mmol/L BUN (7-17) mg/dL Creatinine (0.52-1.04) mg/dL Glucose (74-99) mg/dL POC Glucose (mg/dL) 169 H 146 H (75-99) mg/dL Ferritin (10.0-291.0) ng/mL Assessment and Plan Plan: Assessment: 1. End-stage renal disease maintained on hemodialysis on a Thursday schedule. 2. Chest pain. Rule out acute coronary syndrome. Scheduled for cardiac cath eterization today. 3. Anemia of chronic kidney disease. She has required multiple blood transfusions in the past. 4. Hypertension with chronic kidney disease. Better. 5. Chronic kidney disease mineral bone disease maintained on Renvela. 6. Insulin-dependent diabetes mellitus. 7. Diastolic CHF with moderate tricuspid regurgitation and moderate to severe pulmonary hypertension. 8. History of pericardial effusion. Plan: Hemodialysis today. Maintain current antihypertensives. Maintain hydralazine 10 mg IV every 4 hours if needed for systolic blood pressure greater than 160. Avoid IV hydration. Cleared for cardiac catheterization from nephrology standpoint. Monitor potassium level. If rises again, will discontinue Cozaar.
[2018-12-16] MEDS ORDERED: SODIUM CHLORIDE 0.9% 500 ML 500 ML IV ONE (09:39)
[2018-12-16] MEDS ORDERED: LIDOCAINE 1% INJ 10MG/ML (20 ML MDV) ONE (09:41)
[2018-12-16] MEDS ORDERED: MIDAZOLAM (PF) 2 MG/2 ML VIAL IV ONE (10:19)
[2018-12-16] MEDS ORDERED: LIDOCAINE 2% (PF) 20 MG/ML 10 ML AMP SQ ONE (10:20)
[2018-12-16] MEDS ORDERED: LIDOCAINE 1% INJ 10MG/ML (20 ML MDV) SQ ONE (10:20)
[2018-12-16] MEDS: FUROSEMIDE 80 MG TAB PO SCH ×2 (10:28→17:28)
[2018-12-16] MEDS ORDERED: IOPAMIDOL-370 125ML BTL INJ ONE (10:43)
[2018-12-16] MEDS ORDERED: HYDROmorphone 1 MG/ML 1 ML SYRINGE ONE (10:46)
[2018-12-16] MEDS ORDERED: RX INFO: IV CONTRAST WAS GIVEN 1 EACH MISC MISCELLANE PRN (10:50)
[2018-12-16] MEDS ORDERED: HYDROmorphone 1 MG/ML 1 ML SYRINGE IVP ONE (10:50)
[2018-12-16] MEDS ORDERED: SODIUM CHLORIDE 0.9% 1,000 ML IV SCH (11:00)
--- NOTE | 2018-12-16 11:33 | CC ---
CARDIAC CATHETERIZATION REPORT DATE OF SERVICE: December 16, 2018 PERFORMING PHYSICIAN: Urbano Tesfaye MD, band teacher. PROCEDURE PERFORMED: 1. Right heart catheterization. 2. Left heart catheterization. 3. Selective right and left coronary angiogram. INDICATION: This is a 53-year-old female patient who was experiencing symptoms of chest discomfort concerning for angina and also shortness of breath with exertion. She initially scheduled to undergo a heart catheterization as an outpatient but she ended admitted to the OBS unit. She was seen by Dr. Perkins. APPROACH: Right common femoral artery and right common femoral vein. COMPLICATION: None. LEVEL OF SEDATION: Moderate with sedation length of 29 minutes. PROCEDURE DESCRIPTION: After obtaining an informed consent, the patient was brought to cardiac clinical laboratory scientist. The right common femoral vein and right common femoral artery were cannulated using micropuncture technique, the micropuncture wire passed easily then I placed an 8-Nigerien sheath in the vein and 6-Nigerien sheath in the artery. After that I did right heart catheterization using 6-Nigerien [place] catheter. Subsequently I did selective right and left coronary angiogram using Elieser right posterior and JL4 catheters. The left heart catheterization was performed using the JR4 catheter which crossed the aortic valve then I pullback across the aortic valve. The procedure was completed without any complication. HEMODYNAMICS: 1. The pulmonary artery wedge pressure was 18 mmHg. 2. PA pressures were as follows: Systolic 37, diastolic of 16, and mean of 24 mmHg. 3. RV pressures were as follows: Systolic 56 and end-diastolic of 20 mmHg. 4. RA pressure was 15 mmHg. 5. LVEDP was 20 mmHg. SELECTIVE CORONARY ANGIOGRAM: 1. The left main is angiographically normal. It bifurcates into left circumflex and left anterior descending artery. 2. The left circumflex is angiographically normal. It gives rise in the midportion to an OM branch which seems to be angiographically normal. 3. The LAD: The LAD proximal portion appeared to be normal. It gives rise into a large diagonal branch which seems to be normal. The LAD in the mid and distal portion appeared to be normal. CONCLUSION: 1. Normal right heart pressures. 2. Normal coronary angiogram. POSTPROCEDURE MANAGEMENT: 1. Maximize medical treatment. 2. Follow up with the patient. MMODL / IJN: [id number] /
[2018-12-16 11:55] LABS: Glucose,Whole Blood 223 mg/dL (75-99)
--- NOTE | 2018-12-16 13:01 | P.PN ---
Subjective This is Nessa Leon PA-C dictating a progress note on this patient The patient was interviewed and examined by me as well as by Dr. Perkins Case discussed with Dr. Perkins and he agrees with the plan of care IMPRESSION / ASSESSMENT: Atypical chest discomfort, recent positive stress test, coronary angiography showed normal coronary arteries today Hypertension. blood pressure remains elevated in the 160s systolic Dyslipidemia Diabetes ESRD on dialysis Small pericardial and pleural effusion on echo, possibly related to hydralazine PLAN: Increase labetalol to 400 mg twice a day, continue to monitor blood pressure for one more day Try to ambulate tomorrow maximize medical management Diabetes management per primary team HPI/interval history Patient is a 53-year-old female with a past medical history of hypertension, dyslipidemia, diabetes, and ESRD on dialysis who presented with complaints of chest discomfort. She also reports she had a recent positive stress test and was supposed to undergo a coronary angiogram as an outpatient. Her blood pressure was elevated on admission and she was switched from amlodipine and metoprolol to Procardia and labetalol for blood pressure control. Patient underwent a right and left heart cath this morning which revealed normal right heart pressures and normal coronary arteries. Patient seen and examined lying in bed receiving hemodialysis. Denies chest pain, shortness of breath, o rthopnea, dizziness lightheadedness. Does have some soreness in her right groin. EXAMINATION Temperature 97.7F, pulse 79, respirations 17, blood pressure 165/69, oxygen saturation 97% on 2 L nasal cannula Patient seen and examined resting in bed, no acute distress Lungs are clear to auscultation bilaterally Heart is regular, systolic murmur noted No elevated JVD noted No lower extremity edema Right groin dressing clean and dry, site mildly tender, no hematoma REVIEW OF LABS, ECG Review WBC 2.5, hemoglobin 8.4, platelets 71, Cardiac catheterization revealed normal right heart pressures, normal coronary arteries Echocardiogram showed normal LV size, severe concentric LVH, EF 50-55%, mild a ortic valve sclerosis, mild AR, mild MR, [id number] TR, small pericardial effusion and a small pleural effusion Objective - Vital Signs Vital signs: Vital Signs Temp 97.7 F 12/16/18 08:00 Pulse 79 12/16/18 08:00 Resp 17 12/16/18 08:00 BP 165/69 08/08/19 08:00 Pulse Ox 97 12/16/18 08:00 Intake & Output 12/15/18 12/16/18 12/16/18 18:59 06:59 18:59 Intake Total 150 Output Total 1000 Balance -1000 150 Intake: IV 150 Output: Hemodialysis 1000 Other: # Voids 2 1 - Labs CBC & Chem 7: 12/16/18 06:35 12/15/18 18:29 Labs: Abnormal Lab Results - Last 24 Hours (Table) 12/15/18 12/15/18 12/15/18 Range/Units 07:16 12:38 12:38 WBC 2.3 L (3.8-10.6) k/uL RBC 2.38 L (3.80-5.40) m/uL Hgb 8.1 L (11.4-16.0) gm/dL Hct 24.0 L (34.0-46.0) % MCV 100.5 H (80.0-100.0) fL RDW 16.8 H (11.5-15.5) % Plt Count 68 L (150-450) k/uL Lymphocytes # 0.3 L (1.0-4.8) k/uL Retic Count 2.7 H (0.5-2.0) % Sodium (137-145) mmol/L Potassium 6.7 H* (3.5-5.1) mmol/L Chloride 90 L (98-107) mmol/L Carbon Dioxide 34 H (22-30) mmol/L BUN 60 H (7-17) mg/dL Creatinine 7.43 H* (0.52-1.04) mg/dL Glucose 204 H (74-99) mg/dL POC Glucose (mg/dL) (75-99) mg/dL Ferritin 1582.3 H (10.0-291.0) ng/mL 12/15/18 12/15/18 12/15/18 Range/Units 16:32 18:29 19:58 WBC (3.8-10.6) k/uL RBC (3.80-5.40) m/uL Hgb (11.4-16.0) gm/dL Hct (34.0-46.0) % MCV (80.0-100.0) fL RDW (11.5-15.5) % Plt Count (150-450) k/uL Lymphocytes # (1.0-4.8) k/uL Retic Count (0.5-2.0) % Sodium 136 L (137-145) mmol/L Potassium (3.5-5.1) mmol/L Chloride 93 L (98-107) mmol/L Carbon Dioxide 32 H (22-30) mmol/L BUN 38 H (7-17) mg/dL Creatinine 4.72 H (0.52-1.04) mg/dL Glucose 108 H (74-99) mg/dL POC Glucose (mg/dL) 127 H 169 H (75-99) mg/dL Ferritin (10.0-291.0) ng/mL 12/16/18 12/16/18 Range/Units 06:35 06:56 WBC 2.5 L (3.8-10.6) k/uL RBC 2.42 L (3.80-5.40) m/uL Hgb 8.4 L (11.4-16.0) gm/dL Hct 24.0 L (34.0-46.0) % MCV (80.0-100.0) fL RDW 16.4 H (11.5-15.5) % Plt Count 71 L (150-450) k/uL Lymphocytes # 0.3 L (1.0-4.8) k/uL Retic Count (0.5-2.0) % Sodium (137-145) mmol/L Potassium (3.5-5.1) mmol/L Chloride (98-107) mmol/L Carbon Dioxide (22-30) mmol/L BUN (7-17) mg/dL Creatinine (0.52-1.04) mg/dL Glucose (74-99) mg/dL POC Glucose (mg/dL) 146 H (75-99) mg/dL Ferritin (10.0-291.0) ng/mL
--- NOTE | 2018-12-16 16:23 | P.PN ---
Subjective Progress Note Date: 12/16/18 This is a 53-year-old female with history of end-stage kidney disease on hemodialysis, chronic anemia, hypertension, moderate tricuspid regurgitation, pulmonary hypertension, diastolic CHF, pericardial effusion, diabetes mellitus and multiple other medical issues presented to the ER with complaints of chest pain radiating to left shoulder and arm, but has to yesterday evening. Reports she had been lifting with that arm yesterday and pain fluctuates with extreme movement. Reproducible pain. Reports she had dialysis yesterday morning , developed squeezing chest pain during her dialysis session,proceeded to the ER. Abnormal stress test approximately 2 months ago had been scheduled for cardiac catheterization last Thursday but was unable to make it. EKG reporting normal sinus rhythm with T-wave abnormalities in lateral leads, compared by ER physician to prior EKG, similar. Troponins negative 3. Triglycerides 619, statin increased. Hemoglobin 8.2, improved from prior labwork. Chest x-ray no nacute. Afebrile. Evaluated by cardiology, nephrology, oncology/hematology with recommendations noted and appreciated. Hypertensive, amlodipine, metoprolol discontinued, Procardia and labetalol initiated. Hyperkalemic, patient had refused Kayexalate Earlier. Status post cardiac catheterization today, reporting normal right heart pressures and coronary arteries. Tolerated procedure well. Scheduled to receive hemodialysis post catheterization. Blood pressure remains elevated up into the 160s, Labetalol increased. Denies chest pain, palpitations or shortness of breath. Denies lightheadedness dizziness or focal deficits. Objective - Vital Signs Vital signs: Vital Signs Temp 97.7 F 12/16/18 08:00 Pulse 79 12/16/18 08:00 Resp 17 12/16/18 08:00 BP 147/59 12/16/18 12:45 Pulse Ox 97 12/16/18 08:00 Intake & Output 12/15/18 12/16/18 12/16/18 18:59 06:59 18:59 Intake Total 150 Output Total 1000 Balance -1000 150 Intake: IV 150 Output: Hemodialysis 1000 Other: # Voids 2 1 - Exam VITAL SIGNS: As above GENERAL: Lying in bed, no acute distress HEENT: Conjunctivae normal. eyes normal. NECK: No JVD. No thyroid enlargement. No LNs CARDIOVASCULAR: S1, S2 regular. Systolic murmur RESPIRATION: Breath sounds clear to auscultation, diminished in the bases. No rhonchi or crackles. No wheezing ABDOMEN: Soft, nontender . No guarding. no masses palpable. No ascites, No hepatosplenomegaly.Bowel sounds heard. LEGS: No edema. no swelling PSYCHIATRY: Alert and oriented X3, mood and affect normal. NERVOUS SYSTEM: Cranial N 2-12 grossly normal. Moves all 4 limbs. Diffuse weakness No focal deficits. Strength and sensation grossly intact.. Skin: no lesions, no rash - Labs CBC & Chem 7: 12/16/18 06:35 12/15/18 18:29 Labs: Abnormal Lab Results - Last 24 Hours (Table) 12/15/18 12/15/18 12/15/18 Range/Units 07:16 12:38 16:32 WBC (3.8-10.6) k/uL RBC (3.80-5.40) m/uL Hgb (11.4-16.0) gm/dL Hct (34.0-46.0) % RDW (11.5-15.5) % Plt Count (150-450) k/uL Lymphocytes # (1.0-4.8) k/uL Retic Count 2.7 H (0.5-2.0) % Sodium (137-145) mmol/L Chloride (98-107) mmol/L Carbon Dioxide (22-30) mmol/L BUN (7-17) mg/dL Creatinine (0.52-1.04) mg/dL Glucose (74-99) mg/dL POC Glucose (mg/dL) 127 H (75-99) mg/dL Ferritin 1582.3 H (10.0-291.0) ng/mL 12/15/18 12/15/18 12/16/18 Range/Units 18:29 19:58 06:35 WBC 2.5 L (3.8-10.6) k/uL RBC 2.42 L (3.80-5.40) m/uL Hgb 8.4 L (11.4-16.0) gm/dL Hct 24.0 L (34.0-46.0) % RDW 16.4 H (11.5-15.5) % Plt Count 71 L (150-450) k/uL Lymphocytes # 0.3 L (1.0-4.8) k/uL Retic Count (0.5-2.0) % Sodium 136 L (137-145) mmol/L Chloride 93 L (98-107) mmol/L Carbon Dioxide 32 H (22-30) mmol/L BUN 38 H (7-17) mg/dL Creatinine 4.72 H (0.52-1.04) mg/dL Glucose 108 H (74-99) mg/dL POC Glucose (mg/dL) 169 H (75-99) mg/dL Ferritin (10.0-291.0) ng/mL 12/16/18 12/16/18 Range/Units 06:56 11:54 WBC (3.8-10.6) k/uL RBC (3.80-5.40) m/uL Hgb (11.4-16.0) gm/dL Hct (34.0-46.0) % RDW (11.5-15.5) % Plt Count (150-450) k/uL Lymphocytes # (1.0-4.8) k/uL Retic Count (0.5-2.0) % Sodium (137-145) mmol/L Chloride (98-107) mmol/L Carbon Dioxide (22-30) mmol/L BUN (7-17) mg/dL Creatinine (0.52-1.04) mg/dL Glucose (74-99) mg/dL POC Glucose (mg/dL) 146 H 223 H (75-99) mg/dL Ferritin (10.0-291.0) ng/mL Assessment and Plan Assessment: -Atypical Chest pain, status post cardiac catheterization reporting normal coronaries and heart pressures -Hypertension -Hypochloremia -End-stage renal disease on hemodialysis Thursday -Hyperkalemic secondary to the above -Diabetes mellitus -Moderate tricuspid regurgitation -Pulmonary hypertension -Diastolic CHF, chronic -History of pericardial effusion -Pancytopenia Plan: Continue current medication regime ,monitoring and symptomatic treatment. Antihypertensives adjusted further as per cardiology. Close monitoring of blood pressure. Discharge planning in progress for tomorrow pending cardiology and nephrology clearance. Further recommendations to follow. The impression and plan of care has been dictated as directed. : I performed a history and examination of this patient, discussed the same with the dictator. I agree with the dictator's note ,documented as a scribe. Any additional findings or plans will be noted. Time taken: 35 minutes
[2018-12-16 16:48] LABS: Glucose,Whole Blood 157 mg/dL (75-99)
[2018-12-16 19:47] VITALS: RESP 16
[2018-12-16 20:13] LABS: Glucose,Whole Blood 253 mg/dL (75-99)
[2018-12-16] MEDS: INSULIN DETEMIR (LEVEMIR) 100 UNIT/ML SYR SQ SCH (20:24)
[2018-12-16] MEDS: CYCLOBENZAPRINE 5 MG TAB PO SCH (20:25)
[2018-12-16] MEDS: ATORVASTATIN 80 MG TAB PO SCH (20:26)
[2018-12-16] MEDS: DIAZEPAM 5 MG TAB PO PRN (20:26)
[2018-12-16] MEDS: PROCHLORPERAZINE 5 MG TAB PO PRN (20:37)
[2018-12-17] MEDS: HYDROcodone/APAP 5-325MG 1 EACH TAB PO PRN ×2 (00:32→08:15)
[2018-12-17] MEDS: traMADol 50 MG TAB PO PRN (03:41)
[2018-12-17 06:44] LABS: Glucose,Whole Blood 173 mg/dL (75-99)
[2018-12-17] MEDS: INSULIN ASPART (NovoLOG) 100 UNIT/ML VIAL SQ SCH ×2 (07:59→08:13)
[2018-12-17] MEDS: SODIUM CHLORIDE 0.65% NASAL SPRAY 44 ML BTL NASAL SCH (08:13)
[2018-12-17] MEDS: SEVELAMER 800 MG TAB PO SCH (08:13)
[2018-12-17] MEDS: SODIUM POLYSTYRENE SULFONATE 15 GM/60 ML BOTTLE PO SCH (08:13)
[2018-12-17] MEDS: NIFEdipine XL 90 MG TAB.ER.24 PO SCH (08:14)
[2018-12-17] MEDS: VITAMIN E (DL,TOCOPHERYL ACET) 400 UNIT CAP PO SCH (08:14)
[2018-12-17] MEDS: hydrALAZINE HCL 50 MG TAB PO SCH (08:14)
[2018-12-17] MEDS: CHOLECALCIFEROL 1,000 UNIT TAB PO SCH (08:14)
[2018-12-17] MEDS: cloNIDine HCL 0.1 MG TAB PO SCH (08:14)
[2018-12-17] MEDS: ASPIRIN 81 MG PO SCH (08:15)
[2018-12-17] MEDS: GABAPENTIN 100 MG CAP PO SCH (08:15)
[2018-12-17] MEDS: LOSARTAN 50 MG TAB PO SCH (08:15)
[2018-12-17] MEDS: PANTOPRAZOLE 40 MG TABLET PO SCH (08:15)
[2018-12-17] MEDS: FUROSEMIDE 80 MG TAB PO SCH (08:15)
[2018-12-17] MEDS: LABETALOL 200 MG TAB PO SCH (08:16)
[2018-12-17] MEDS: FOLIC ACID-VIT B COMPLEX-VIT C 1 CAP PO SCH (08:16)
--- NOTE | 2018-12-17 08:55 | P.PN ---
Subjective Patient is seen in follow-up for end-stage renal disease. She is maintained on hemodialysis on a Thursday schedule. No chest pain or shortness of breath today. Cardiac catheterization done on December 16 revealed clean coronaries. No active complaints. Vital signs are stable. General: The patient appeared well nourished and normally developed. HEENT: Head exam is unremarkable. Neck is without jugular venous distension. LUNGS: Lungs are clear to auscultation and percussion. Breath sounds decreased. HEART: Rate and Rhythm are regular. First and second heart sounds normal. No murmurs, rubs or gallops. ABDOMEN: Abdominal exam reveals normal bowel sounds. Non-tender and non- distended. No evidence of peritonitis. EXTREMITITES: No clubbing, cyanosis, or edema. Objective - Vital Signs Vital signs: Vital Signs Temp 97.8 F 12/17/18 03:58 Pulse 71 12/17/18 03:58 Resp 16 12/17/18 04:00 BP 140/56 12/17/18 03:58 Pulse Ox 98 12/17/18 03:58 Intake & Output 12/16/18 12/17/18 12/17/18 18:59 06:59 18:59 Intake Total 150 Output Total 3000 Balance -2850 Intake: IV 150 Output: Hemodialysis 3000 Other: # Voids 1 - Labs CBC & Chem 7: 12/16/18 06:35 12/15/18 18:29 Labs: Abnormal Lab Results - Last 24 Hours (Table) 12/15/18 12/16/18 12/16/18 Range/Units 12:33 11:54 16:46 POC Glucose (mg/dL) 223 H 157 H (75-99) mg/dL Methylmalonic Acid 1.04 H (<0.40) umol/L 12/16/18 12/17/18 Range/Units 20:11 06:43 POC Glucose (mg/dL) 253 H 173 H (75-99) mg/dL Methylmalonic Acid (<0.40) umol/L Assessment and Plan Plan: Assessment: 1. End-stage renal disease maintained on hemodialysis on a Thursday schedule. 2. Chest pain. Rule out acute coronary syndrome. No coronary disease noted on cardiac catheterization done on December 16. 3. Anemia of chronic kidney disease. She has required multiple blood transfusions in the past. 4. Hypertension with chronic kidney disease. Better. 5. Chronic kidney disease mineral bone disease maintained on Renvela. 6. Insulin-dependent diabetes mellitus. 7. Diastolic CHF with moderate tricuspid regurgitation and moderate to severe pulmonary hypertension. 8. History of pericardial effusion. Plan: Hemodialysis tomorrow. Maintain current antihypertensives. Discontinue Cozaar due to hyperkalemia. Stable to be discharged home from nephrology standpoint.
[2018-12-17 09:16] VITALS: BP 153/63; PULSE 75; TEMP 98.1
[2018-12-17 09:50] LABS: Calcium 9.3 mg/dL (8.4-10.2)
--- NOTE | 2018-12-17 10:08 | P.DS ---
Providers Date of admission: 12/15/18 13:33 Expected date of discharge: 12/17/18 Attending physician: David Bragg Consults: 12/14/18 19:43 Consult Physician Routine Consulting Provider: Royal Jones Consult Reason/Comments: Chronic renal failure, dialysis Do you want consulting provider notified?: Yes Consult Physician Urgent Consulting Provider: Urbano Tesfaye Consult Reason/Comments: cp Do you want consulting provider notified?: Yes 12/15/18 07:49 Consult Physician Routine Consulting Provider: Cirilo Garay Consult Reason/Comments: pancytopenia Do you want consulting provider notified?: Yes Primary care physician: [facility] Course: Final Diagnoses: -Atypical Chest pain, status post cardiac catheterization reporting normal coronaries -Hypertension -Hypochloremia -End-stage renal disease on hemodialysis Thursday -Hyperkalemic secondary to the above -Diabetes mellitus -Moderate tricuspid regurgitation -Pulmonary hypertension -Diastolic CHF, chronic -History of pericardial effusion -Pancytopenia Hospital course:This is a 53-year-old female with history of end-stage kidney disease on hemodialysis, chronic anemia, hypertension, moderate tricuspid regurgitation, pulmonary hypertension, diastolic CHF, pericardial effusion, diabetes mellitus and multiple other medical issues presented to the ER with complaints of chest pain radiating to left shoulder and arm, but has to yesterday evening. Reports she had been lifting with that arm yesterday and pain fluctuates with extreme movement. Reproducible pain. Reports she had dialysis yesterday morning , developed squeezing chest pain during her dialysis session,proceeded to the ER. Abnormal stress test approximately 2 months ago had been scheduled for cardiac catheterization last Thursday but was unable to make it. EKG reporting normal sinus rhythm with T-wave abnormalities in lateral leads, compared by ER physician to prior EKG, similar. Troponins negative 3. Triglycerides 619, statin increased. Hemoglobin 8.2, improved from prior labwork. Chest x-ray nonacute. Afebrile. Evaluated by cardiology, nephrology, oncology/hematology with recommendations noted and appreciated. Hypertensive, amlodipine, metoprolol discontinued, Procardia and labetalol initiated. Hyperkalemic, patient had refused Kayexalate Earlier. Status post cardiac catheterization today, reporting normal right heart pressures and coronary arteries. Tolerated procedure well. Scheduled to receive hemodialysis post catheterization. Blood pressure remains elevated up into the 160s, Labetalol increased. Denies chest pain, palpitations or shortness of breath. Denies lightheadedness dizziness or focal deficits. Antihypertensives further adjusted, statin increased as per cardiology. Significant clinical improvement. Patient cleared by all consults for discharge. Patient is being discharged home in a stable condition with guarded prognosis. - Exam GENERAL: Alert and oriented 3, no acute distress CARDIOVASCULAR: S1, S2 regular. Systolic murmur RESPIRATION: Breath sounds clear to auscultation, diminished in the bases. No rhonchi or crackles. No wheezing ABDOMEN: Soft, nontender . No guarding. no masses palpable. Bowel sounds heard. NERVOUS SYSTEM: No focal deficits. The impression and plan of care has been dictated as directed. : I performed a history and examination of this patient, discussed the same with the dictator. I agree with the dictator's note ,documented as a scribe. Any additional findings or plans will be noted. Time taken: 35 minutes Patient Condition at Discharge: Stable Plan - Discharge Summary New Discharge Prescriptions: New Aspirin EC [Ecotrin Low Dose] 81 mg PO DAILY #30 tablet. Atorvastatin [Lipitor] 80 mg PO HS #30 tab NIFEdipine XL [Procardia XL] 90 mg PO DAILY #30 tab.er.24 Labetalol [Trandate] 400 mg PO BID #120 tab Continue Cyclobenzaprine [Flexeril] 10 mg PO HS Insulin Glargine [Lantus] 70 unit SQ HS cloNIDine HCL 0.3 mg PO TID Sevelamer [Renvela] 800 mg PO DAILY PRN PRN Reason: SNACKS Furosemide [Lasix] 80 mg PO BID Prochlorperazine [Compazine] 5 mg PO BID Diazepam [Valium] 5 mg PO BID Sevelamer [Renvela] 2,400 mg PO AC-TID INSULIN LISPRO (humaLOG) [humaLOG] See Protocol SQ AC-TID Gabapentin [Neurontin] 200 mg PO TID INSULIN LISPRO (humaLOG) [humaLOG] 18 unit SQ AC-TID traMADol HCL [Ultram] 50 mg PO Q4HR PRN PRN Reason: Pain Omeprazole 40 mg PO DAILY Lidocaine-Prilocaine Cream [Emla Cream 2.5%/2.5%] 1 applic TOPICAL DIRECTED rOPINIRole HCL [Requip] 1 mg PO TID HYDROcodone/APAP 5-325MG [[place] 5-325] 1 tab PO Q8H PRN PRN Reason: Pain Folic Acid-Vit B Complex-Vit C [Nephrocaps] 1 cap PO DAILY hydrALAZINE HCL [Apresoline] 100 mg PO TID Magnesium Gluconate 27 mg PO BID Discontinued Atorvastatin [Lipitor] 40 mg PO HS amLODIPine [Norvasc] 10 mg PO DAILY Metoprolol Tartrate [Lopressor] 50 mg PO BID Losartan [Cozaar] 50 mg PO DAILY #14 tab Discharge Medication List Cyclobenzaprine [Flexeril] 10 mg PO HS 09/14/15 [History] Insulin Glargine [Lantus] 70 unit SQ HS 04/18/16 [History] cloNIDine HCL 0.3 mg PO TID 12/16/16 [History] Sevelamer [Renvela] 800 mg PO DAILY PRN 08/21/17 [History] Furosemide [Lasix] 80 mg PO BID 10/22/17 [History] Prochlorperazine [Compazine] 5 mg PO BID 10/26/17 [History] Diazepam [Valium] 5 mg PO BID 02/10/18 [History] Sevelamer [Renvela] 2,400 mg PO AC-TID 03/13/18 [History] Gabapentin [Neurontin] 200 mg PO TID 05/17/18 [History] INSULIN LISPRO (humaLOG) [humaLOG] See Protocol SQ AC-TID 05/17/18 [History] INSULIN LISPRO (humaLOG) [humaLOG] 18 unit SQ AC-TID 07/12/18 [History] Omeprazole 40 mg PO DAILY 11/01/18 [History] traMADol HCL [Ultram] 50 mg PO Q4HR PRN 11/01/18 [History] Lidocaine-Prilocaine Cream [Emla Cream 2.5%/2.5%] 1 applic TOPICAL DIRECTED 11/21/18 [History] HYDROcodone/APAP 5-325MG [[place] 5-325] 1 tab PO Q8H PRN 12/01/18 [History] rOPINIRole HCL [Requip] 1 mg PO TID 12/01/18 [History] Folic Acid-Vit B Complex-Vit C [Nephrocaps] 1 cap PO DAILY 12/14/18 [History] Magnesium Gluconate 27 mg PO BID 12/14/18 [History] hydrALAZINE HCL [Apresoline] 100 mg PO TID 12/14/18 [History] Aspirin EC [Ecotrin Low Dose] 81 mg PO DAILY #30 tablet.dr 12/17/18 [Rx] Atorvastatin [Lipitor] 80 mg PO HS #30 tab 12/17/18 [Rx] Labetalol [Trandate] 400 mg PO BID #120 tab 12/17/18 [Rx] NIFEdipine XL [Procardia XL] 90 mg PO DAILY #30 tab.er.24 12/17/18 [Rx] Follow up Appointment(s)/Referral(s): David Bragg MD [Primary Care Provider] - 1 Week Royal Jones DO [STAFF PHYSICIAN] - 1 Week Ambulatory/Diagnostic Orders: Complete Blood Count w/diff [LAB.AMB] Time Frame: 1 Week, Location: None Selected Activity/Diet/Wound Care/Special Instructions: Confirm cardiology follow-up per to discharge. Hemodialysis as per nephrology Statin increased, outpatient repeat lipid panel as per PCP
--- NOTE | 2018-12-17 11:12 | P.PN ---
Subjective This is Nessa Leon PA-C dictating a progress note on this patient The patient was interviewed and examined by me as well as by Dr. Perkins Case discussed with Dr. Perkins and he agrees with the plan of care IMPRESSION / ASSESSMENT: Atypical chest discomfort, status post coronary angiography showing normal coronary arteries Hypertension, blood pressure control improved Dyslipidemia, elevated triglycerides, atorvastatin was increased to 80 mg daily ESRD on dialysis Diabetes PLAN: Continue current blood pressure medication regimen Patient is cleared for discharge from a cardiac standpoint, follow-up in the office with Dr. Tesfaye Recommend home blood pressure monitoring, consider decreasing clonidine in the future Repeat lipid panel outpatient HPI/interval history Patient is a 53-year-old female with past medical history of hypertension, dyslipidemia, diabetes and ESRD on dialysis who presented with complaints of chest discomfort. She stated she had a recent positive stress test so she underwent coronary angiography which showed normal coronary arteries. She had been hypertensive during her admission and we switched her metoprolol and amlodipine to labetalol and Procardia. Her blood pressure remained elevated so we increased her labetalol yesterday. Her blood pressure has been better controlled since. He has been mostly in the 140s systolic but had a few episodes in the 100 systolic. Patient denied any symptoms of dizziness, lightheadedness presyncope or syncope. Able to get up to the bathroom without any issues. States she is overall feeling better today. Still complaining of some soreness in her groin. EXAMINATION Temperature 98.1F, pulse 75, respirations 16, blood pressure 153/83, oxygen saturation 100% on 2 L nasal cannula Patient seen and examined sitting up in bed, no acute distress Lungs clear to auscultation bilaterally Heart is regular, systolic murmur noted No lower extremity edema REVIEW OF LABS, ECG Sodium 134, potassium 5.0, BUN 38, creatinine 6.49 Lipid panel showed total cholesterol 147, triglycerides 619, HDL 23 Objective - Vital Signs Vital signs: Vital Signs Temp 98.1 F 12/17/18 08:00 Pulse 75 12/17/18 08:00 Resp 16 12/17/18 08:00 BP 153/63 12/17/18 08:00 Pulse Ox 100 12/17/18 08:00 Intake & Output 12/16/18 12/17/18 12/17/18 18:59 06:59 18:59 Intake Total 150 Output Total 3000 Balance -2850 Intake: IV 150 Output: Hemodialysis 3000 Other: Voiding Method Toilet # Voids 1 - Labs CBC & Chem 7: 12/16/18 06:35 12/17/18 09:15 Labs: Abnormal Lab Results - Last 24 Hours (Table) 12/15/18 12/16/18 12/16/18 Range/Units 12:33 11:54 16:46 Sodium (137-145) mmol/L Chloride (98-107) mmol/L BUN (7-17) mg/dL Creatinine (0.52-1.04) mg/dL Glucose (74-99) mg/dL POC Glucose (mg/dL) 223 H 157 H (75-99) mg/dL Methylmalonic Acid 1.04 H (<0.40) umol/L 12/16/18 12/17/18 12/17/18 Range/Units 20:11 06:43 09:15 Sodium 134 L (137-145) mmol/L Chloride 93 L (98-107) mmol/L BUN 38 H (7-17) mg/dL Creatinine 6.49 H (0.52-1.04) mg/dL Glucose 308 H (74-99) mg/dL POC Glucose (mg/dL) 253 H 173 H (75-99) mg/dL Methylmalonic Acid (<0.40) umol/L
== END 2018-12-17 11:31 | disposition home or self-care (01) | DRG 286 ==
LOC: EC 17:53 → 1SOBS 19:43 → OBSVTOIN 12-15 13:33
PROVIDERS: ADMIT Family Medicine; ATTEND Family Medicine
PROC: 5A1D70Z Performance of Urinary Filtration, Intermittent, Less than 6 Hours Per Day (ICD-10-PCS; 2018-12-16)
PROC: B2161ZZ Fluoroscopy of Right and Left Heart using Low Osmolar Contrast (ICD-10-PCS; principal; 2018-12-16 09:39)
PROC: 4A023N8 Measurement of Cardiac Sampling and Pressure, Bilateral, Percutaneous Approach (ICD-10-PCS; principal; 2018-12-16 09:39)
DX: R07.89 Other chest pain (principal); N18.6 End stage renal disease; D61.818 Other pancytopenia; I13.2 Hypertensive heart and chronic kidney disease with heart failure and with stage 5 chronic kidney disease, or end stage renal disease; I50.32 Chronic diastolic (congestive) heart failure; D63.1 Anemia in chronic kidney disease; E11.22 Type 2 diabetes mellitus with diabetic chronic kidney disease; E78.1 Pure hyperglyceridemia; E78.5 Hyperlipidemia, unspecified; E87.5 Hyperkalemia; E87.8 Other disorders of electrolyte and fluid balance, not elsewhere classified; I07.1 Rheumatic tricuspid insufficiency; I27.20 Pulmonary hypertension, unspecified; M89.8X9 Other specified disorders of bone, unspecified site; Z79.4 Long term (current) use of insulin; Z79.82 Long term (current) use of aspirin; Z79.899 Other long term (current) drug therapy; Z82.49 Family history of ischemic heart disease and other diseases of the circulatory system; Z87.891 Personal history of nicotine dependence; Z99.2 Dependence on renal dialysis; Z88.1 Allergy status to other antibiotic agents; Z91.041 Radiographic dye allergy status; Z87.01 Personal history of pneumonia (recurrent); Z87.440 Personal history of urinary (tract) infections; Z86.2 Personal history of diseases of the blood and blood-forming organs and certain disorders involving the immune mechanism; Z98.42 Cataract extraction status, left eye; Z98.41 Cataract extraction status, right eye; Z98.890 Other specified postprocedural states; Z80.8 Family history of malignant neoplasm of other organs or systems
CPT/HCPCS: 36415; 71046; 80048; 80053; 80061; 82607; 82728; 83540; 83550; 83735; 83880; 83921; 84484; 84550; 85025; 85045; 85610; 85730; 90935; 93005; 93306; 93460; 96374; 96375; 99285

== ENCOUNTER 2019-02-17 01:07 | Emergency (ER) | payer OTHER ==
[2019-02-17 01:15] VITALS: TEMP 97.5
[2019-02-17] MEDS ORDERED: NITROGLYCERIN OINT 1 INCH/GM PACKET TOPICAL STA (01:46)
[2019-02-17] MEDS ORDERED: FUROSEMIDE 10 MG/ML 4 ML VIAL IV STA (01:46)
[2019-02-17 02:06] LABS: Anisocytosis Slight; HGB 8.2 gm/dL (11.4-16.0); MCH 32.3 pg (25.0-35.0); MCHC 32.9 g/dL (31.0-37.0); MCV 98.3 fL (80.0-100.0); Macrocytosis Slight; Mean Platelet Volume 7.4; RBC 2.54 m/uL (3.80-5.40); WBC 3.1 k/uL (3.8-10.6)
[2019-02-17 02:16] LABS: Partial Thromboplastin Time 24.6 sec (22.0-30.0); Prothrombin Time 10.9 sec (9.0-12.0)
--- NOTE | 2019-02-17 02:28 | XR ---
EXAMINATION TYPE: XR chest 2V DATE OF EXAM: 02/17/2019 COMPARISON: 12/14/2018 HISTORY: Difficulty breathing TECHNIQUE: Frontal and lateral views of the chest are obtained. FINDINGS: Heart is enlarged. There is mild pulmonary vascular congestion. There is a few curly B cat es. There are chest leads. There is no definite pleural effusion. IMPRESSION: Mild pulmonary interstitial edema consistent with heart failure that is worse than last exam.
[2019-02-17 02:36] LABS: Albumin 4.7 g/dL (3.5-5.0); Calcium 9.8 mg/dL (8.4-10.2); Potassium 5.1 mmol/L (3.5-5.1); Total Protein 7.2 g/dL (6.3-8.2)
[2019-02-17 02:40] LABS: Eosinophils # (M) 0.06 k/uL (0-0.7); Lymphocytes # (M) 0.12 k/uL (1.0-4.8); Monocytes # (M) 0.09 k/uL (0-1.0); Neutrophils % (M) 91 %; Nucleated Red Blood Cells 0 /100 WBC (0-0); Total Cells Counted 100
[2019-02-17 02:41] LABS: Platelet Count 87 k/uL (150-450)
[2019-02-17] MEDS ORDERED: LABETALOL 5 MG/ML VIAL MDV IVP STA (02:50)
--- NOTE | 2019-02-17 03:02 | ED ---
SOB HPI - General Chief Complaint: Shortness of Breath Stated Complaint: MARILIN,Cough,weak,dialysis pt Time Seen by Provider: 02/17/19 01:30 Source: patient, family Mode of arrival: ambulatory Limitations: no limitations - History of Present Illness Initial Comments: This patient is 53-year-old woman who presents to be evaluated for shortness of breath and cough. She states that is been coming on for probably approximately 30 hours. She states that the cough does occasionally have some clear or white sputum. She has not had fever or chills. No chest pain. No cold-like symptoms. Patient denies having any change in bowel movements. No bloody or dark tarry stools. MD Complaint: shortness of breath, cough Onset/Timin -: hour(s) Severity scale (1-10): 0 Consistency: constant Improves With: upright position Worsens With: lying flat Known History Of: other (Renal failure) Associated Symptoms: cough Treatments Prior to Arrival: none - Related Data Home Oxygen Therapy: No Home Medications Medication Instructions Recorded Confirmed Cyclobenzaprine [Flexeril] 5 mg PO BID 09/14/15 01/21/19 Insulin Glargine [Lantus] 70 unit SQ HS 04/18/16 01/21/19 cloNIDine HCL 0.3 mg PO TID 12/16/16 01/21/19 Sevelamer [Renvela] 800 mg PO DAILY PRN 08/21/17 01/21/19 Furosemide [Lasix] 80 mg PO BID 10/22/17 01/21/19 Prochlorperazine [Compazine] 5 mg PO BID 10/26/17 01/21/19 Diazepam [Valium] 5 mg PO BID 02/10/18 01/21/19 Sevelamer [Renvela] 2,400 mg PO AC-TID 03/13/18 01/21/19 Gabapentin [Neurontin] 200 mg PO HS 05/17/18 01/21/19 INSULIN LISPRO (humaLOG) [humaLOG] See Protocol SQ AC-TID 05/17/18 01/21/19 INSULIN LISPRO (humaLOG) [humaLOG] 18 unit SQ AC-TID 07/12/18 01/21/19 Omeprazole 20 mg PO DAILY 11/01/18 01/21/19 traMADol HCL [Ultram] 50 mg PO Q4HR PRN 11/01/18 01/21/19 Lidocaine-Prilocaine Cream [Emla 1 applic TOPICAL DIRECTED 11/21/18 01/21/19 Cream 2.5%/2.5%] HYDROcodone/APAP 5-325MG [[place] 1 tab PO Q8H PRN 12/01/18 01/21/19 5-325] rOPINIRole HCL [Requip] 1 mg PO TID 12/01/18 01/21/19 Folic Acid-Vit B Complex-Vit C 1 cap PO DAILY 12/14/18 01/21/19 [Nephrocaps] hydrALAZINE HCL [Apresoline] 100 mg PO TID 12/14/18 01/21/19 Diazepam [Valium] 5 mg PO BID 01/21/19 01/21/19 Previous Rx's Medication Instructions Recorded Aspirin EC [Ecotrin Low Dose] 81 mg PO DAILY #30 tablet. 12/17/18 Atorvastatin [Lipitor] 80 mg PO HS #30 tab 12/17/18 Labetalol [Trandate] 400 mg PO BID #120 tab 12/17/18 NIFEdipine XL [Procardia XL] 90 mg PO DAILY #30 tab.er.24 12/17/18 Allergies Allergy/AdvReac Type Severity Reaction Status Date / Time ciprofloxacin [From Cipro] AdvReac AFFECTED Verified 02/17/19 01:15 EYESIGHT ciprofloxacin HCl AdvReac AFFECTED Verified 02/17/19 01:15 [From Cipro] EYESIGHT Iodinated Contrast Media AdvReac RENAL Verified 02/17/19 01:15 FAILURE Review of Systems ROS Statement: Those systems with pertinent positive or pertinent negative responses have been documented in the HPI. ROS Other: All systems not noted in ROS Statement are negative. Constitutional: Denies: fever, chills ENT: Denies: congestion Respiratory: Reports: cough, dyspnea. Denies: wheezes, hemoptysis Cardiovascular: Reports: orthopnea. Denies: chest pain, palpitations, syncope Gastrointestinal: Denies: abdominal pain, nausea, vomiting, diarrhea, melena, hematochezia Musculoskeletal: Denies: back pain Skin: Denies: rash Neurological: Denies: headache, weakness, numbness Past Medical History Past Medical History: Blood Disorder, Heart Failure, Diabetes Mellitus, Dialysis, Hyperlipidemia, Hypertension, Liver Disease, Pneumonia, Renal Disease Additional Past Medical History / Comment(s): Bilateral cataracts, recently diagnosed with bilateral retinal hemorrhages, hypertriglyceridemia-induced acute pancreatitis, THEN necrotizing pancreatitis. hemodialysis for acute kidney injury 2 months in 2009 after pancreatic OR, 11/2015 diagnosed w/ chronic kidney disease-hemodialysis //-last hemodialysis 07-10-18, IDDM type II, past DKA, pt states she has dry heaves day after dialysis, UTI, chronic anemia, frequent body cramping, occasional low back pain, carter's palsy x2, past L leg fx, possible liver disease-recent liver bx-results unknown per pt. History of Any Multi-Drug Resistant Organisms: None Reported Past Surgical History: Orthopedic Surgery, Uterine Ablation Additional Past Surgical History / Comment(s): Recent liver biopsy done at [place] but pt states they have never contacted her with the results, 08/26/17 colonoscopy with polypectomy/bx, pancreatic resection at [facility] 2009, bone marrow biopsies X2-last one 05/19/16,. dialysis chest port x 2 with removals, Left arm shunt placement for dialysis - December 2015 and a revision done with shunt. Past Anesthesia/Blood Transfusion Reactions: No Reported Reaction Additional Past Anesthesia/Blood Transfusion Reaction / Comment(s): Pt has received blood transfusions without reaction. Past Psychological History: No Psychological Hx Reported Smoking Status: Former smoker Past Alcohol Use History: None Reported Past Drug Use History: None Reported - Past Family History Brother(s) Family Medical History: No Reported History Mother Family Medical History: Cancer Additional Family Medical History / Comment(s): . Father Family Medical History: Hypertension Additional Family Medical History / Comment(s): Father is 70 yrs old. General Exam Limitations: no limitations General appearance: alert, in no apparent distress Head exam: Present: atraumatic, normocephalic Eye exam: Present: normal appearance. Absent: scleral icterus, conjunctival injection ENT exam: Present: normal oropharynx Respiratory exam: Present: rales (Bilateral bases). Absent: respiratory distress, wheezes, rhonchi, stridor, accessory muscle use, decreased breath sounds, prolonged expiratory Cardiovascular Exam: Present: regular rate, normal rhythm, gallop. Absent: systolic murmur, diastolic murmur, rubs GI/Abdominal exam: Present: soft. Absent: distended, tenderness, guarding, rebound, rigid, mass Extremities exam: Present: normal inspection, normal capillary refill. Absent: pedal edema, calf tenderness Back exam: Present: normal inspection. Absent: CVA tenderness (R), CVA tenderness (L) Neurological exam: Present: alert Skin exam: Present: warm, dry, intact, normal color. Absent: rash Course Vital Signs 02/17/19 02/17/19 02/17/19 01:11 01:32 01:36 Temperature 97.5 F L Pulse Rate 84 77 Respiratory 22 22 22 Rate Blood Pressure 133/93 227/98 O2 Sat by Pulse 90 L 99 Oximetry 02/17/19 02/17/19 02/17/19 02:48 03:23 04:21 Temperature Pulse Rate 76 71 73 Respiratory 22 22 20 Rate Blood Pressure 210/88 190/81 174/75 O2 Sat by Pulse 98 99 98 Oximetry - Reevaluation(s) Reevaluation #1: 02/17/19 05:09 I was subsequently informed by nursing that the patient was concerned that she would miss her dialysis appointment and had called the dialysis center. Nursing did speak with dialysis center staff who stated that they were finding should the patient show up a little bit late for her appointment, and the patient did leave to go to her dialysis center. This had taken place after discharge while the patient was at the entrance to the hospital. Procedures - [place] Protocol (Time Out) Nurse: Kathleen Tellez Medical Decision Making - Medical Decision Making Patient is a 53-year-old woman who presents with cough and dyspnea that is been getting progressive worse over the past 30 hours. 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 She stated that last time she was at dialysis they had to take 2 L of fluid. Patient presents with hypertension and some mild volume overload on the exam. I discussed with her skip locator her blood pressure and then going directly to her dialysis appointment versus admission here to have dialysis, and the patient did agree with plan to lower blood pressure and proceed directly to dialysis. The patient's mean arterial blood pressure has decreased significantly and her room air sats are good. - Lab Data Result diagrams: 02/17/19 01:59 02/17/19 01:59 Lab Results 02/17/19 02/17/19 02/17/19 Range/Units 01:59 01:59 01:59 WBC 3.1 L (3.8-10.6) k/uL RBC 2.54 L (3.80-5.40) m/uL Hgb 8.2 L (11.4-16.0) gm/dL Hct 25.0 L (34.0-46.0) % MCV 98.3 (80.0-100.0) fL MCH 32.3 (25.0-35.0) pg MCHC 32.9 (31.0-37.0) g/dL RDW 17.0 H (11.5-15.5) % Plt Count 87 L (150-450) k/uL Neutrophils % (Manual) 91 % Lymphocytes % (Manual) 4 % Monocytes % (Manual) 3 % Eosinophils % (Manual) 2 % Neutrophils # (Manual) 2.82 (1.3-7.7) k/uL Lymphocytes # (Manual) 0.12 L (1.0-4.8) k/uL Monocytes # (Manual) 0.09 (0-1.0) k/uL Eosinophils # (Manual) 0.06 (0-0.7) k/uL Nucleated RBCs 0 (0-0) /100 WBC Manual Slide Review Performed Anisocytosis Slight Macrocytosis Slight PT (9.0-12.0) sec INR (<1.2) APTT (22.0-30.0) sec Sodium 139 (137-145) mmol/L Potassium 5.1 (3.5-5.1) mmol/L Chloride 96 L (98-107) mmol/L Carbon Dioxide 31 H (22-30) mmol/L Anion Gap 12 mmol/L BUN 50 H (7-17) mg/dL Creatinine 7.90 H* (0.52-1.04) mg/dL Est GFR (CKD-EPI)AfAm 6 (>60 ml/min/1.73 sqM) Est GFR (CKD-EPI)NonAf 5 (>60 ml/min/1.73 sqM) Glucose 63 L (74-99) mg/dL Calcium 9.8 (8.4-10.2) mg/dL Total Bilirubin 1.0 (0.2-1.3) mg/dL AST 28 (14-36) U/L ALT 26 (9-52) U/L Alkaline Phosphatase 59 (38-126) U/L Troponin I (0.000-0.034) ng/mL NT-Pro-B Natriuret Pep 96709 pg/mL Total Protein 7.2 (6.3-8.2) g/dL Albumin 4.7 (3.5-5.0) g/dL 02/17/19 02/17/19 Range/Units 01:59 01:59 WBC (3.8-10.6) k/uL RBC (3.80-5.40) m/uL Hgb (11.4-16.0) gm/dL Hct (34.0-46.0) % MCV (80.0-100.0) fL MCH (25.0-35.0) pg MCHC (31.0-37.0) g/dL RDW (11.5-15.5) % Plt Count (150-450) k/uL Neutrophils % (Manual) % Lymphocytes % (Manual) % Monocytes % (Manual) % Eosinophils % (Manual) % Neutrophils # (Manual) (1.3-7.7) k/uL Lymphocytes # (Manual) (1.0-4.8) k/uL Monocytes # (Manual) (0-1.0) k/uL Eosinophils # (Manual) (0-0.7) k/uL Nucleated RBCs (0-0) /100 WBC Manual Slide Review Anisocytosis Macrocytosis PT 10.9 (9.0-12.0) sec INR 1.0 (<1.2) APTT 24.6 (22.0-30.0) sec Sodium (137-145) mmol/L Potassium (3.5-5.1) mmol/L Chloride (98-107) mmol/L Carbon Dioxide (22-30) mmol/L Anion Gap mmol/L BUN (7-17) mg/dL Creatinine (0.52-1.04) mg/dL Est GFR (CKD-EPI)AfAm (>60 ml/min/1.73 sqM) Est GFR (CKD-EPI)NonAf (>60 ml/min/1.73 sqM) Glucose (74-99) mg/dL Calcium (8.4-10.2) mg/dL Total Bilirubin (0.2-1.3) mg/dL AST (14-36) U/L ALT (9-52) U/L Alkaline Phosphatase (38-126) U/L Troponin I 0.040 H* (0.000-0.034) ng/mL NT-Pro-B Natriuret Pep pg/mL Total Protein (6.3-8.2) g/dL Albumin (3.5-5.0) g/dL - EKG Data -: EKG Interpreted by Me EKG shows normal: sinus rhythm, axis (Normal), intervals (Normal), QRS complexes (Incomplete right bundle branch block) Rate: normal (Rate 81 bpm) Interpretation: nonspecific ST-T wave changes Disposition Clinical Impression: ESRD (end stage renal disease) on dialysis, HTN (hypertension), Fluid overload Disposition: HOME SELF-CARE Condition: Fair Instructions (If sedation given, give patient instructions): End Stage Kidney Disease (ED) Is patient prescribed a controlled substance at d/c from ED?: No Referrals: David Bragg MD [Primary Care Provider] - 1-2 days
[2019-02-17] MEDS ORDERED: LIDOCAINE 1% INJ 10MG/ML (20 ML MDV) SQ ONE (03:17)
[2019-02-17] MEDS ORDERED: hydrALAZINE HCL 20 MG/ML 1 ML VIAL IVP STA ×2 (03:23→04:02)
[2019-02-17] MEDS ORDERED: cloNIDine HCL 0.1 MG TAB PO STA (04:02)
[2019-02-17 04:22] VITALS: BP 174/75
[2019-02-17 05:01] VITALS: PULSE 73; RESP 20
== END 2019-02-17 04:30 | disposition home or self-care (01) ==
LOC: EC 01:07
DX: I13.2 Hypertensive heart and chronic kidney disease with heart failure and with stage 5 chronic kidney disease, or end stage renal disease (principal); I50.9 Heart failure, unspecified; E11.22 Type 2 diabetes mellitus with diabetic chronic kidney disease; N18.6 End stage renal disease; R05 Cough; G51.0 Bell's palsy; E78.5 Hyperlipidemia, unspecified; Z79.4 Long term (current) use of insulin; Z79.82 Long term (current) use of aspirin; Z79.899 Other long term (current) drug therapy; Z88.1 Allergy status to other antibiotic agents; Z91.041 Radiographic dye allergy status; Z99.2 Dependence on renal dialysis; Z87.891 Personal history of nicotine dependence
CPT/HCPCS: 36415; 93005; 83880; 80053; 84484; 85025; 85610; 85730; 71046; 99285; 96374; 96375 ×2; 96376; J0360; J1940

== ENCOUNTER → 2019-04-14 | Outpatient (CLI) | payer OTHER ==
--- NOTE | 2019-04-14 15:11 | XR ---
EXAMINATION TYPE: XR chest 2V DATE OF EXAM: 04/14/2019 COMPARISON: 02/17/2019 HISTORY: Cough and shortness of breath TECHNIQUE: Frontal and lateral views of the chest are obtained. FINDINGS: There is no focal air space opacity, pleural effusion, or pneumothorax seen. There is impr tracy interstitial edema and comparison to the prior, now very mild centrally. The cardiac silhouette size is enlarged as seen on the prior. The osseous structures are intact. Left subclavian vascular stent noted. IMPRESSION: Improved pulmonary edema in comparison the prior, now very mild. Enlarged cardiac medias tinal silhouette.
== END | disposition home or self-care (01) ==
LOC: LABWHC1 14:40
PROVIDERS: ATTEND Internal Medicine
DX: J81.1 Chronic pulmonary edema (principal)
CPT/HCPCS: 71046

== ENCOUNTER → 2019-04-27 | Outpatient (CLI) | payer OTHER ==
[~2019-04-27] MED LIST changes: -LACTATED RINGERS 1,000 ML IV SCH; -LIDOCAINE 1% 20 ML VIAL (10MG/ML) FOR IV START INTRADERMA PRN; +SODIUM CHLORIDE 0.9% 500 ML 500 ML in EMPTY BAG 1 BAG IV PRN
[2019-04-27 08:38] VITALS: RESP 16
[2019-04-27 09:39] VITALS: BP 170/77; PULSE 67; TEMP 98.1
== END | disposition home or self-care (01) ==
LOC: PROCWHC3 07:56
PROVIDERS: ATTEND Nurse Practitioner Family
DX: N18.9 Chronic kidney disease, unspecified (principal); D63.1 Anemia in chronic kidney disease
CPT/HCPCS: 86900; 86901; 86850; 86920; 36430; 36415; P9040

== ENCOUNTER 2019-05-14 23:30 | Observation (INO) | payer OTHER ==
[2019-05-15] MEDS ORDERED: SODIUM CHLORIDE 0.9% 1,000 ML IV STA (00:22)
[2019-05-15] MEDS ORDERED: IPRATROPIUM-ALBUTEROL 3 ML NEB INHALATION STA (00:22)
[2019-05-15] MEDS ORDERED: methylPREDNISolone SOD SUCCI 125 MG/2 ML VIAL IV STA (00:23)
--- NOTE | 2019-05-15 00:27 | ED ---
Chest Pain HPI - General Chief Complaint: Chest Pain Stated Complaint: Cough,MARILIN,Chest Pain Time Seen by Provider: 05/15/19 00:16 Source: patient, RN notes reviewed Mode of arrival: ambulatory Limitations: no limitations - History of Present Illness Initial Comments: This is a 53-year-old female who is a nonsmoker who states she's had a cough for over a month he was presumed by her family doctor to be secondary to her blood pressure medication show she was taken off that the cough is gotten worse she occasionally has hot flashes but no overt fevers chills or sweats no phlegm production she has some shortness of breath. She states she's had sharp midsternal chest pain and some sharp left-sided pain especially movement. No other modifying factors her does smoke though she doesn't the patient himself has no history of COPD or asthma. MD Complaint: chest pain, other - Related Data Home Medications Medication Instructions Recorded Confirmed Cyclobenzaprine [Flexeril] 5 mg PO HS 09/14/15 05/15/19 Insulin Glargine [Lantus] 70 unit SQ HS 04/18/16 05/15/19 cloNIDine HCL 0.3 mg PO TID 12/16/16 05/15/19 Sevelamer [Renvela] 800 mg PO DAILY PRN 08/21/17 05/15/19 Furosemide [Lasix] 80 mg PO BID 10/22/17 05/15/19 Prochlorperazine [Compazine] 5 mg PO BID PRN 10/26/17 05/15/19 Sevelamer [Renvela] 2,400 mg PO AC-TID 03/13/18 05/15/19 Gabapentin [Neurontin] 100 mg PO TID 05/17/18 05/15/19 INSULIN LISPRO (humaLOG) [humaLOG] See Protocol SQ AC-TID 05/17/18 05/15/19 INSULIN LISPRO (humaLOG) [humaLOG] 18 unit SQ AC-TID 07/12/18 05/15/19 Omeprazole 20 mg PO BID 11/01/18 05/15/19 traMADol HCL [Ultram] 50 mg PO Q4HR PRN 11/01/18 05/15/19 Lidocaine-Prilocaine Cream [Emla 1 applic TOPICAL DIRECTED 11/21/18 05/15/19 Cream 2.5%/2.5%] HYDROcodone/APAP 5-325MG [Amboy 1 tab PO Q8H PRN 12/01/18 05/15/19 5-325] rOPINIRole HCL [Requip] 1 mg PO TID 12/01/18 05/15/19 Folic Acid-Vit B Complex-Vit C 1 cap PO DAILY 12/14/18 05/15/19 [Nephrocaps] hydrALAZINE HCL [Apresoline] 100 mg PO TID 12/14/18 05/15/19 Diazepam [Valium] 5 mg PO BID 01/21/19 05/15/19 Promethazine 6.25MG/5Ml [Phenergan 6.25 mg PO Q6H PRN 05/15/19 05/15/19 Syrup] diphenhydrAMINE HCL [Benadryl] 25 mg PO HS 05/15/19 05/15/19 Previous Rx's Medication Instructions Recorded Aspirin EC [Ecotrin Low Dose] 81 mg PO DAILY #30 tablet. 12/17/18 Atorvastatin [Lipitor] 80 mg PO HS #30 tab 12/17/18 Labetalol [Trandate] 400 mg PO BID #120 tab 12/17/18 NIFEdipine XL [Procardia XL] 90 mg PO DAILY #30 tab.er.24 12/17/18 Albuterol Sulfate [Ventolin HFA] 2 puff INHALATION Q6H PRN #1 05/17/19 inhaler Azithromycin [Zithromax] 500 mg PO DAILY 3 Days #3 tab 05/17/19 predniSONE 10 mg PO DIRECTED #30 tab 05/17/19 Allergies Allergy/AdvReac Type Severity Reaction Status Date / Time ciprofloxacin [From Cipro] AdvReac AFFECTED Verified 05/15/19 00:02 EYESIGHT ciprofloxacin HCl AdvReac AFFECTED Verified 05/15/19 00:02 [From Cipro] EYESIGHT Iodinated Contrast Media AdvReac RENAL Verified 05/15/19 00:02 FAILURE Review of Systems ROS Statement: Those systems with pertinent positive or pertinent negative responses have been documented in the HPI. ROS Other: All systems not noted in ROS Statement are negative. EKG Findings - EKG Results: EKG: interpreted by ERMD, WNL, sinus rhythm, normal axis, normal QRS, normal ST/T, no acute changes (Normal sinus rhythm of 74. Interval 154 QRS duration 98 QT/QTC 460/[address]-T wave changes) Past Medical History Past Medical History: Blood Disorder, Heart Failure, Diabetes Mellitus, Dialysis, Hyperlipidemia, Hypertension, Liver Disease, Pneumonia, Renal Disease Additional Past Medical History / Comment(s): Bilateral cataracts, recently diagnosed with bilateral retinal hemorrhages, hypertriglyceridemia-induced acute pancreatitis, THEN necrotizing pancreatitis. hemodialysis for acute kidney injury 2 months in 2009 after pancreatic OR, 11/2015 diagnosed w/ chronic kidney disease-hemodialysis /-last hemodialysis 07-10-18, IDDM type II, past DKA, pt states she has dry heaves day after dialysis, UTI, chronic anemia, frequent body cramping, occasional low back pain, carter's palsy x2, past L leg fx, possibl e liver disease-recent liver bx-results unknown per pt. History of Any Multi-Drug Resistant Organisms: None Reported Past Surgical History: Orthopedic Surgery, Uterine Ablation Additional Past Surgical History / Comment(s): Recent liver biopsy done at [facility] but pt states they have never contacted her with the results, 08/26/17 colonoscopy with polypectomy/bx, pancreatic resection at [facility] 2009, bone marrow biopsies X2-last one 05/19/16,. dialysis chest port x 2 with removals, Left arm shunt placement for dialysis - December 2015 and a revision done with shunt. Past Anesthesia/Blood Transfusion Reactions: No Reported Reaction Additional Past Anesthesia/Blood Transfusion Reaction / Comment(s): Pt has received blood transfusions without reaction. Past Psychological History: No Psychological Hx Reported Smoking Status: Never smoker Past Alcohol Use History: None Reported Past Drug Use History: None Reported - Past Family History Brother(s) Family Medical History: No Reported History Mother Family Medical History: Cancer Additional Family Medical History / Comment(s): . Father Family Medical History: Hypertension Additional Family Medical History / Comment(s): Father is 70 yrs old. General Exam - General Exam Comments Initial Comments: This is a well-developed well-nourished awake alert oriented 3 female Limitations: no limitations General appearance: alert, in no apparent distress Head exam: Present: atraumatic, normocephalic, normal inspection Eye exam: Present: normal appearance, PERRL, EOMI. Absent: scleral icterus, conjunctival injection, periorbital swelling ENT exam: Present: normal exam, mucous membranes moist Neck exam: Present: normal inspection, full ROM, other (No stridor or bruits). Absent: tenderness, meningismus, lymphadenopathy Respiratory exam: Present: wheezes, chest wall tenderness (Reproducible tenderness palpation along the costal sternal margins no step-off or crepitation), decreased breath sounds. Absent: respiratory distress, rales, rhonchi, stridor Cardiovascular Exam: Present: regular rate, normal rhythm, normal heart sounds. Absent: systolic murmur, diastolic murmur, rubs, gallop, clicks GI/Abdominal exam: Present: soft, normal bowel sounds. Absent: distended, tenderness, guarding, rebound, rigid Extremities exam: Present: normal inspection, full ROM, normal capillary refill. Absent: tenderness, pedal edema, joint swelling, calf tenderness Back exam: Present: normal inspection Neurological exam: Present: alert, oriented X3, CN II-XII intact Psychiatric exam: Present: normal affect, normal mood Skin exam: Present: warm, dry, intact, normal color. 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 Patient did have seemingly reproducible chest pain. Case was discussed with Dr. Bragg. Patient was admitted. Disposition Clinical Impression: Chest pain, Accelerated hypertension, Hyperkalemia, Tracheobronchitis Disposition: ADMITTED IP TO THIS HOSP Condition: Stable
[2019-05-15 00:34] LABS: Anisocytosis Slight; Basophils % (A) 1 %; Eosinophils % (A) 2 %; HCT 26.3 % (34.0-46.0); HGB 8.4 gm/dL (11.4-16.0); Lymphocytes # (A) 0.2 k/uL (1.0-4.8); Lymphocytes % (A) 12 %; MCH 30.8 pg (25.0-35.0); MCV 96.1 fL (80.0-100.0); Mean Platelet Volume 8.8; Monocytes # (A) 0.2 k/uL (0-1.0); Monocytes % (A) 8 %; Neutrophils # (A) 1.4 k/uL (1.3-7.7); Neutrophils % (A) 75 %; RBC 2.74 m/uL (3.80-5.40); RDW 16.6 % (11.5-15.5); WBC 1.9 k/uL (3.8-10.6)
[2019-05-15 00:42] LABS: Albumin 4.4 g/dL (3.5-5.0); Calcium 9.6 mg/dL (8.4-10.2); Magnesium 1.7 mg/dL (1.6-2.3); Potassium 4.6 mmol/L (3.5-5.1); Total Bilirubin 0.8 mg/dL (0.2-1.3)
[2019-05-15 00:50] LABS: Partial Thromboplastin Time 24.3 sec (22.0-30.0); Prothrombin Time 10.7 sec (9.0-12.0)
[2019-05-15 00:58] LABS: D-Dimer 1.46 mg/L FEU (<0.60)
--- NOTE | 2019-05-15 01:00 | XR ---
EXAMINATION TYPE: XR chest 2V DATE OF EXAM: 05/15/2019 COMPARISON: 04/14/2019 HISTORY: Chest pain TECHNIQUE: 2 views FINDINGS: Heart is enlarged. There is some pulmonary vascular congestion. There is no pleural fluid. There are chest leads. IMPRESSION: Mild congestive heart failure. Heart is increased compared to old exam. Pulmonary congest ion not changed.
[2019-05-15 01:13] LABS: Platelet Count 86 k/uL (150-450)
[2019-05-15] MEDS ORDERED: NALOXONE 0.4 MG/ML 1 ML VIAL IV PRN (01:39)
[2019-05-15 02:07] LABS: Glucose,Whole Blood 190 mg/dL (75-99)
--- NOTE | 2019-05-15 02:17 | CT ---
EXAMINATION TYPE: CT chest angio for PE DATE OF EXAM: 05/15/2019 COMPARISON: None HISTORY: PE Chest pain CT DLP: 504.9 mGycm Automated exposure control for dose reduction was used. CONTRAST: Performed with IV Contrast, patient injected with 80 mL of Isovue 370. There are 3-D post processed images. Heart is enlarged. There is some mild groundglass interstitial density in both lungs. There is no claudine dence of a pulmonary mass. There is pericardial effusion. Fluid measures up to 15 mm. There is abdomi nal ascites. There is no pleural effusion. There is normal contrast opacification of the pulmonary arteries. There are no filling defects. There is no mediastinal adenopathy. There are no hilar masses. Bony thorax a ppears intact. There is mild osteosclerosis in the thoracic vertebra. IMPRESSION: IMPRESSION: Cardiomegaly with pericardial effusion. No evidence of pulmonary embolism. Interstitial pulmonary inf iltrates. No pleural effusion. Mild ascites. Changes in the thoracic spine consistent with renal oste odystrophy.
[2019-05-15] MEDS ORDERED: SEVELAMER 800 MG TAB PO PRN (03:12)
[2019-05-15] MEDS: HYDROcodone/APAP 5-325MG 1 EACH TAB PO PRN ×3 (03:26→22:22)
[2019-05-15] MEDS: IPRATROPIUM-ALBUTEROL 3 ML NEB INHALATION PRN ×5 (04:11→18:31)
[2019-05-15] MEDS: cloNIDine HCL 0.1 MG TAB PO SCH ×3 (06:32→20:56)
[2019-05-15 07:09] LABS: Glucose,Whole Blood 242 mg/dL (75-99)
[2019-05-15] MEDS: NIFEdipine XL 90 MG TAB.ER.24 PO SCH (08:08)
[2019-05-15] MEDS: ASPIRIN 81 MG PO SCH (08:08)
[2019-05-15] MEDS: CYCLOBENZAPRINE 5 MG TAB PO SCH ×2 (08:08→20:56)
[2019-05-15] MEDS: FOLIC ACID-VIT B COMPLEX-VIT C 1 CAP PO SCH (08:08)
[2019-05-15] MEDS: DIAZEPAM 5 MG TAB PO SCH ×2 (08:08→20:56)
[2019-05-15] MEDS: SEVELAMER 800 MG TAB PO SCH ×3 (08:09→17:25)
[2019-05-15] MEDS: FUROSEMIDE 80 MG TAB PO SCH ×2 (08:09→20:57)
[2019-05-15] MEDS: LABETALOL 200 MG TAB PO SCH ×2 (08:09→20:56)
[2019-05-15] MEDS: PANTOPRAZOLE 40 MG TABLET PO SCH (08:09)
[2019-05-15] MEDS: hydrALAZINE HCL 50 MG TAB PO SCH ×3 (08:09→20:56)
[2019-05-15] MEDS: GABAPENTIN 100 MG CAP PO SCH ×3 (08:09→20:56)
[2019-05-15] MEDS: INSULIN ASPART (NovoLOG) 100 UNIT/ML VIAL SQ SCH ×7 (08:10→22:19)
[2019-05-15] MEDS: traMADol 50 MG TAB PO PRN ×2 (08:26→17:59)
[2019-05-15] MEDS ORDERED: LIDOCAINE-PRILOCAINE 2.5-2.5% CREAM 5 GM TUBE TOPICAL PRN (09:00)
[2019-05-15 11:39] LABS: Glucose,Whole Blood 299 mg/dL (75-99)
[2019-05-15] MEDS ORDERED: DARBEPOETIN ALFA 60 MCG/0.3 ML SYRINGE SQ SCH (14:00)
--- NOTE | 2019-05-15 16:08 | CONS ---
CONSULTATION REASON FOR CONSULT: End-stage renal disease. HISTORY OF PRESENT ILLNESS: The patient is a 53-year-old female with end-stage renal disease, on hemodialysis on a Thursday, , Thursday schedule. Patient was admitted to the hospital with complaints of shortness of breath. She states that she has been volume overloaded over the last week or so secondary to the holidays. She did have an extra treatment at her outpatient dialysis unit, but she remains significantly above her dry weight, at least by 3-4 kg. The patient did have a CT scan with IV contrast yesterday to rule out PE and it was negative. Blood pressure remains elevated. No fevers, chills, abdominal pain, nausea, vomiting or diarrhea. PAST MEDICAL HISTORY: End-stage renal disease, anemia of chronic disease, type 2 diabetes, hyperlipidemia, hypertension, CKD mineral bone disorder, history of pancreatitis, history of bilateral retinal hemorrhages, history of possible underlying chronic liver disease. PAST SURGICAL HISTORY: Liver biopsy, colonoscopy, polypectomy, AV fistula, PermCath placement and removal. SOCIAL HISTORY: Negative for smoking, drug abuse or alcohol abuse. MEDICATIONS: Medications prior to admission included Renvela, Valium, Neurontin, insulin, Ultram, omeprazole, Requip, hydralazine, Nephrocaps, Valium, Lipitor, Trandate, Procardia, aspirin, Compazine, Renvela, clonidine, Flexeril, Lasix. ALLERGIES: Include CIPRO and IV CONTRAST. REVIEW OF SYSTEMS: As per HPI. Other systems negative. PHYSICAL EXAMINATION: On examination, patient is comfortable, awake, alert, oriented x3, not in any acute distress. Blood pressure is 194/78, heart rate 88 per minute, she is afebrile. Examination of the heart S1, S2. Examination of the lungs, bilateral breath sounds are heard. Decreased breath sounds at bases. Bilateral crackles are heard occasionally. IT RISK ADVISOR exam is grossly intact. Abdomen is soft, distended, nontender. Examination of lower extremities shows no evidence of edema. The patient's face appears quite puffy from baseline. LABS: Sodium 141, potassium 4.6, BUN 38, creatinine 5.58, glucose 49. ProBNP 00374, hemoglobin 8.4 g/dL. ASSESSMENT: 1. End-stage renal disease, on hemodialysis on a Thursday, , Thursday schedule. 2. Volume overload. We will plan for an extra treatment again today as well as tomorrow. Patient could be discharged tomorrow with plans to follow up as outpatient for dialysis again on Thursday. 3. Hypertension, volume sensitive, expect improvement post dialysis. 4. Anemia, no active bleeding noted. Will maintain patient on Aranesp. 5. Chronic kidney disease mineral bone disorder maintained on Renvela. PLAN: Continue with the phosphate binders. Hemodialysis today as well as in a.m. Discontinue IV fluids. Thank you for this consultation. MMODL / IJN: [id number] /
--- NOTE | 2019-05-15 16:14 | CONS ---
CONSULTATION CHIEF COMPLAINT: Chest pain. Sara is a 53-year-old lady with history of insulin-requiring diabetes, hypertension, end-stage renal disease on hemodialysis, who presented to hospital complaining of cough and sharp left-sided chest pain that was getting particularly worse with movement. I have been consulted for the same. Since being admitted to the hospital, she has remained pain-free and is doing well otherwise. The troponin is 0.025. Hemoglobin is 8.4. D-dimer was elevated. The patient had a CT of the chest that was negative for pulmonary embolism. The patient had a cardiac catheterization within the last 12 months that showed normal coronary arteries. The patient's chest pain is atypical and probably noncardiac in origin. EKG shows sinus rhythm with nonspecific ST-T wave changes. PAST MEDICAL HISTORY: Significant for hypertension, end-stage renal disease on hemodialysis, and diabetes. MEDICATIONS: Medications at home include Benadryl, Flexeril, Ultram, Requip, Apresoline, Catapres, Compazine, Procardia, insulin, Neurontin, Lasix, Lipitor and aspirin. ALLERGIES: The patient is allergic to CIPRO AND IV CONTRAST. FAMILY HISTORY: Negative for premature coronary artery disease. SOCIAL HISTORY: Denies current smoking, EtOH abuse, or drug abuse. REVIEW OF SYSTEMS: HEENT: Unremarkable. CARDIAC: As described above. RESPIRATORY: As described above. GI: Negative. GENITOURINARY: Significant for end stage renal disease on hemodialysis. PSYCHOSOCIAL: Negative. ENDOCRINE: Negative. DERM: Negative. CONSTITUTIONAL: Negative. ONCOLOGICAL: Negative. PHYSICAL EXAMINATION: Comfortable at rest. Afebrile. Heart rate is 74 beats, blood pressure is 174/69, respiratory rate is 18. Chest exam reveals good air entry bilaterally. Heart exam reveals first and second heart sounds. No gallop. Abdomen is soft. Exam of the extremities did not reveal any edema. Peripheral pulses are felt. LABS: Have been reviewed. ASSESSMENT: 1. Precordial chest pain. 2. End-stage renal disease on hemodialysis. 3. Uncontrolled hypertension. 4. Diabetes. PLAN: The patient's chest pain is noncardiac in origin. Myocardial infarction is ruled out. Pulmonary embolism is ruled out. Blood pressures are high. I will follow it after the dialysis. If they are still high we can go up on the dose of hydralazine. MMODL / IJN: [id number] /
[2019-05-15 16:55] LABS: Glucose,Whole Blood 133 mg/dL (75-99)
[2019-05-15] MEDS: AZITHROMYCIN 500 MG in SODIUM CHLORIDE 0.9% 250 ML IVPB SCH (17:24)
[2019-05-15] MEDS: methylPREDNISolone SOD SUCCI 40 MG/ML 1 ML VIAL IV SCH (17:24)
--- NOTE | 2019-05-15 17:29 | HP ---
HISTORY AND PHYSICAL A 53-year-old white female who has had a cough for over a month, presumed but worsening. Her blood pressure is elevated. Cough worsened. She probably has tracheobronchitis. CT of the chest was negative for PE. She has sharp midsternal chest pain and some left-sided pain during movement. CT scan of the chest did show pericardial effusion, but she probably has tracheobronchitis. She has a nasty cough that recently started and she does not believe she is on fluid overload. HOME MEDICINES: Include Lantus 70 units daily, Flexeril 5 mg b.i.d., Clonidine 0.3 t.i.d., Renvela 800 mg daily, Lasix 80 mg p.o. b.i.d., Compazine 5 mg b.i.d., Valium 5 mg b.i.d., Neurontin 200 mg daily, Humalog a.c. and q.h.s., 18 units with meals, omeprazole 20 daily, tramadol 50 mg q.4 hours, Nesmith 5/325 q.8 hours, Requip 1 mg t.i.d., hydralazine 100 t.i.d., Valium 5 mg b.i.d. REVIEW OF SYSTEMS: Fourteen-point review of systems negative except for mentioned in HPI above. EKG sinus rhythm. PAST MEDICAL HISTORY: Heart failure, diabetes mellitus, pericardial effusion, hypertension, liver disease, pneumonia, renal disease, blood disorder, orthopedic surgery, uterine ablation, and recent liver biopsy, left arm shunt with dialysis. SOCIAL HISTORY: Nonsmoker. No alcohol. No illicit drugs. FAMILY HISTORY: Mother with cancer. Father with hypertension. PHYSICAL EXAM: Reviewed. Vital signs reviewed. She is well-developed, well-nourished white female. She looks integument is dry. Poor skin turgor. HEENT: Normocephalic, atraumatic. NECK: Supple. LUNGS show wheezes. Chest wall tenderness, reproducible. Decreased breath sounds. HEART: Regular rate and rhythm. BACK: Normal to inspection. Cranial nerves are intact. PSYCH: Fair mood and affect. SKIN: Warm, dry, intact. VITAL SIGNS: Temperature 97.8, pulse 70s, respiratory 16-20, blood pressure 191/70. ASSESSMENT: 1. Hypertension acceleration. 2. Tracheobronchitis. 3. End-stage renal disease. 4. Possible fluid overload. 5. Pericardial effusion. Cardiology will be consulted. Started on antibiotic for tracheobronchitis. Renal physician consult for end-stage renal disease for dialysis. Please see further orders. MMODL / IJN: [id number] /
[2019-05-15 20:50] LABS: Glucose,Whole Blood 129 mg/dL (75-99)
[2019-05-15] MEDS: ATORVASTATIN 80 MG TAB PO SCH (20:57)
[2019-05-15] MEDS: INSULIN DETEMIR (LEVEMIR) 100 UNIT/ML SYR SQ SCH (22:22)
[2019-05-15] MEDS ORDERED: ONDANSETRON 4 MG/2 ML VIAL IVP PRN (22:23)
[2019-05-15 23:31] LABS: Glucose,Whole Blood 187 mg/dL (75-99)
[2019-05-16] MEDS: methylPREDNISolone SOD SUCCI 40 MG/ML 1 ML VIAL IV SCH ×3 (00:40→18:26)
[2019-05-16] MEDS: traMADol 50 MG TAB PO PRN (04:02)
[2019-05-16 06:18] LABS: Anisocytosis Slight; Basophils % (A) 0 %; Eosinophils % (A) 1 %; HGB 8.5 gm/dL (11.4-16.0); Hypochromasia Slight; Lymphocytes # (A) 0.2 k/uL (1.0-4.8); Lymphocytes % (A) 6 %; MCHC 31.4 g/dL (31.0-37.0); MCV 98.7 fL (80.0-100.0); Macrocytosis Slight; Mean Platelet Volume 8.3; Monocytes # (A) 0.1 k/uL (0-1.0); Monocytes % (A) 4 %; Neutrophils # (A) 2.6 k/uL (1.3-7.7); Neutrophils % (A) 89 %; RBC 2.74 m/uL (3.80-5.40); RDW 16.3 % (11.5-15.5)
[2019-05-16 06:19] LABS: Platelet Count 92 k/uL (150-450)
[2019-05-16 06:25] LABS: Albumin 4.4 g/dL (3.5-5.0); Calcium 9.5 mg/dL (8.4-10.2); Total Bilirubin 0.8 mg/dL (0.2-1.3); Total Protein 6.9 g/dL (6.3-8.2)
[2019-05-16 06:27] LABS: Potassium 7.9 mmol/L (3.5-5.1)
[2019-05-16 07:01] LABS: Glucose,Whole Blood 199 mg/dL (75-99)
[2019-05-16] MEDS: INSULIN ASPART (NovoLOG) 100 UNIT/ML VIAL SQ SCH ×7 (07:59→21:27)
[2019-05-16] MEDS ORDERED: CALCIUM GLUCONATE 1 GM in SODIUM CHLORIDE 0.9% 100 ML IVPB ONE (08:00)
[2019-05-16] MEDS ORDERED: INSULIN REGULAR 100 UNIT/ML VIAL IV ONE (08:00)
[2019-05-16] MEDS: SEVELAMER 800 MG TAB PO SCH ×3 (08:10→18:26)
[2019-05-16] MEDS: FOLIC ACID-VIT B COMPLEX-VIT C 1 CAP PO SCH (08:10)
[2019-05-16] MEDS: IPRATROPIUM-ALBUTEROL 3 ML NEB INHALATION PRN ×4 (08:43→20:21)
--- NOTE | 2019-05-16 10:06 | P.PN ---
Subjective Patient is seen in follow-up for end-stage renal disease. She is maintained on hemodialysis on Thursday schedule. Potassium level was high this morning. She is currently undergoing hemodialysis. She will be given 1 g of IV calcium gluconate. She denies any chest pain or shortness of breath. Hemodynamically stable. Continues to have a nonproductive cough. Vital signs are stable. General: The patient appeared well nourished and normally developed. HEENT: Head exam is unremarkable. Neck is without jugular venous distension. LUNGS: Lungs are clear to auscultation and percussion. Breath sounds decreased. HEART: Rate and Rhythm are regular. First and second heart sounds normal. No murmurs, rubs or gallops. ABDOMEN: Abdominal exam reveals normal bowel sounds. Non-tender and non- distended. No evidence of peritonitis. EXTREMITITES: 1+ edema. Objective - Vital Signs Vital signs: Vital Signs Temp 96.9 F L 05/16/19 05:00 Pulse 79 05/16/19 08:54 Resp 18 05/16/19 05:00 BP 166/75 05/16/19 05:00 Pulse Ox 95 05/16/19 08:43 Intake & Output 05/15/19 05/16/19 05/16/19 18:59 06:59 18:59 Intake Total 825 300 Output Total 3004 Balance -3004 825 300 Weight 79.832 kg Intake: Oral 825 300 Output: Urine 4 Hemodialysis 3000 Other: Voiding Method Toilet Toilet # Voids 2 # Bowel Movements 1 - Labs CBC & Chem 7: 05/16/19 05:45 05/16/19 05:45 Labs: Abnormal Lab Results - Last 24 Hours (Table) 05/15/19 05/15/19 05/15/19 Range/Units 11:37 16:53 20:38 WBC (3.8-10.6) k/uL RBC (3.80-5.40) m/uL Hgb (11.4-16.0) gm/dL Hct (34.0-46.0) % RDW (11.5-15.5) % Plt Count (150-450) k/uL Lymphocytes # (1.0-4.8) k/uL Sodium (137-145) mmol/L Potassium (3.5-5.1) mmol/L Chloride (98-107) mmol/L BUN (7-17) mg/dL Creatinine (0.52-1.04) mg/dL Glucose (74-99) mg/dL POC Glucose (mg/dL) 299 H 133 H 129 H (75-99) mg/dL 05/15/19 05/16/19 05/16/19 Range/Units 23:30 05:45 05:45 WBC 3.0 L (3.8-10.6) k/uL RBC 2.74 L (3.80-5.40) m/uL Hgb 8.5 L (11.4-16.0) gm/dL Hct 27.0 L (34.0-46.0) % RDW 16.3 H (11.5-15.5) % Plt Count 92 L (150-450) k/uL Lymphocytes # 0.2 L (1.0-4.8) k/uL Sodium 136 L (137-145) mmol/L Potassium 7.9 H* (3.5-5.1) mmol/L Chloride 94 L (98-107) mmol/L BUN 50 H (7-17) mg/dL Creatinine 6.19 H (0.52-1.04) mg/dL Glucose 187 H (74-99) mg/dL POC Glucose (mg/dL) 187 H (75-99) mg/dL 05/16/19 Range/Units 06:43 WBC (3.8-10.6) k/uL RBC (3.80-5.40) m/uL Hgb (11.4-16.0) gm/dL Hct (34.0-46.0) % RDW (11.5-15.5) % Plt Count (150-450) k/uL Lymphocytes # (1.0-4.8) k/uL Sodium (137-145) mmol/L Potassium (3.5-5.1) mmol/L Chloride (98-107) mmol/L BUN (7-17) mg/dL Creatinine (0.52-1.04) mg/dL Glucose (74-99) mg/dL POC Glucose (mg/dL) 199 H (75-99) mg/dL Microbiology - Last 24 Hours (Table) 05/15/19 01:16 Blood Culture - Preliminary Blood No Growth after 24 hours Assessment and Plan Plan: Assessment: 1. End-stage renal disease maintained on hemodialysis on Thursday schedule. 2. Hyperkalemia secondary to chronic kidney disease. 3. Hypertension with chronic kidney disease. Controlled. 4. Anemia of chronic kidney disease maintained on Aranesp. 5. Chronic kidney disease mineral bone disease maintained on Renvela. 6. Volume overload. Plan: 1 g IV calcium gluconate now. Currently seen while undergoing hemodialysis. Another treatment tomorrow per her outpatient schedule. Recheck potassium level this evening. Low potassium diet. Patient is not on any meds that could raise the potassium.
[2019-05-16 10:44] LABS: Hepatitis B Surface AB- Quant 793.9 mIU/mL; Hepatitis B Surface Antibody Reactive (Non-Reactive); Hepatitis B Surface Antigen Non-Reactive (Non-Reactive)
[2019-05-16 11:45] LABS: Glucose,Whole Blood 112 mg/dL (75-99)
[2019-05-16 11:52] LABS: Hemoglobin A1C 5.7 % (4.0-6.0)
[2019-05-16] MEDS: PANTOPRAZOLE 40 MG TABLET PO SCH (12:01)
[2019-05-16] MEDS: CYCLOBENZAPRINE 5 MG TAB PO SCH ×2 (12:02→21:05)
[2019-05-16] MEDS: cloNIDine HCL 0.1 MG TAB PO SCH ×3 (12:02→21:19)
[2019-05-16] MEDS: LABETALOL 200 MG TAB PO SCH ×2 (12:02→21:05)
[2019-05-16] MEDS: GABAPENTIN 100 MG CAP PO SCH ×3 (12:02→21:19)
[2019-05-16] MEDS: ASPIRIN 81 MG PO SCH (12:02)
[2019-05-16] MEDS: hydrALAZINE HCL 50 MG TAB PO SCH ×3 (12:02→21:18)
[2019-05-16] MEDS: DIAZEPAM 5 MG TAB PO SCH ×2 (12:02→21:19)
[2019-05-16] MEDS: FUROSEMIDE 80 MG TAB PO SCH ×2 (12:03→21:06)
[2019-05-16] MEDS: NIFEdipine XL 90 MG TAB.ER.24 PO SCH (12:03)
--- NOTE | 2019-05-16 12:21 | P.PN ---
Subjective This is a pleasant 53-year-old female past medical history significant for hypertension, diabetes mellitus, dyslipidemia and end-stage renal disease on hemodialysis. She is seen and examined sitting up in bed resting comfortably undergoing hemodialysis. She denies symptoms of chest pain, shortness of breath, dizziness or palpitations. She states she has ongoing cough. She did undergo dialysis yesterday as well. Blood pressure this morning before dialysis 166/75 heart rate 81 afebrile maintaining oxygen saturation on room air. Laboratory data reviewed, WBC 3.0, hemoglobin 8.5, platelets 92, sodium 136, potassium 7.9, creatinine 6.19. Currently maintained on aspirin 81 mg daily, atorvastatin 80 mg daily, clonidine 0.3 mg 3 times a day, hydralazine 100 mg 3 times a day, labetalol 400 mg twice a day, nifedipine 90 mg daily. GENERAL: Well-appearing, well-nourished and in no acute distress. NECK: Supple without JVD or thyromegaly. LUNGS: Breath sounds clear to auscultation bilaterally. Respiration equal and unlabored. No wheezes, rales or rhonchi. HEART: Regular rate and rhythm with systolic ejection murmur at the left sternal border, no rubs or gallops. S1 and S2 heard. EXTREMITIES: Normal range of motion, no edema. No clubbing or cyanosis. Peripheral pulses intact. ASSESSMENT Chest pain, atypical. Hyperkalemia End-stage renal disease on hemodialysis Hypertension Dyslipidemia Diabetes mellitus PLAN No further symptoms of chest discomfort. Stable from a cardiac perspective. Blood pressure management per nephrology. We will follow as needed, please call with further questions or concerns. Nurse Practitioner note has been reviewed, I agree with a documented findings and plan of care. Patient was seen and examined. Objective - Vital Signs Vital signs: Vital Signs Temp 96.9 F L 05/16/19 05:00 Pulse 81 05/16/19 11:55 Resp 18 05/16/19 05:00 BP 166/75 05/16/19 05:00 Pulse Ox 95 05/16/19 08:43 Intake & Output 05/15/19 05/16/19 05/16/19 18:59 06:59 18:59 Intake Total 825 300 Output Total 3004 Balance -3004 825 300 Weight 79.832 kg Intake: Oral 825 300 Output: Urine 4 Hemodialysis 3000 Other: Voiding Method Toilet Toilet # Voids 2 # Bowel Movements 1 - Labs CBC & Chem 7: 05/16/19 05:45 05/16/19 05:45 Labs: Abnormal Lab Results - Last 24 Hours (Table) 05/15/19 05/15/19 05/15/19 Range/Units 16:00 16:53 20:38 WBC (3.8-10.6) k/uL RBC (3.80-5.40) m/uL Hgb (11.4-16.0) gm/dL Hct (34.0-46.0) % RDW (11.5-15.5) % Plt Count (150-450) k/uL Lymphocytes # (1.0-4.8) k/uL Sodium (137-145) mmol/L Potassium (3.5-5.1) mmol/L Chloride (98-107) mmol/L BUN (7-17) mg/dL Creatinine (0.52-1.04) mg/dL Glucose (74-99) mg/dL POC Glucose (mg/dL) 133 H 129 H (75-99) mg/dL Hep Bs Antibody Reactive H (Non-Reactive) 05/15/19 05/16/19 05/16/19 Range/Units 23:30 05:45 05:45 WBC 3.0 L (3.8-10.6) k/uL RBC 2.74 L (3.80-5.40) m/uL Hgb 8.5 L (11.4-16.0) gm/dL Hct 27.0 L (34.0-46.0) % RDW 16.3 H (11.5-15.5) % Plt Count 92 L (150-450) k/uL Lymphocytes # 0.2 L (1.0-4.8) k/uL Sodium 136 L (137-145) mmol/L Potassium 7.9 H* (3.5-5.1) mmol/L Chloride 94 L (98-107) mmol/L BUN 50 H (7-17) mg/dL Creatinine 6.19 H (0.52-1.04) mg/dL Glucose 187 H (74-99) mg/dL POC Glucose (mg/dL) 187 H (75-99) mg/dL Hep Bs Antibody (Non-Reactive) 05/16/19 05/16/19 Range/Units 06:43 11:38 WBC (3.8-10.6) k/uL RBC (3.80-5.40) m/uL Hgb (11.4-16.0) gm/dL Hct (34.0-46.0) % RDW (11.5-15.5) % Plt Count (150-450) k/uL Lymphocytes # (1.0-4.8) k/uL Sodium (137-145) mmol/L Potassium (3.5-5.1) mmol/L Chloride (98-107) mmol/L BUN (7-17) mg/dL Creatinine (0.52-1.04) mg/dL Glucose (74-99) mg/dL POC Glucose (mg/dL) 199 H 112 H (75-99) mg/dL Hep Bs Antibody (Non-Reactive) Microbiology - Last 24 Hours (Table) 05/15/19 01:16 Blood Culture - Preliminary Blood No Growth after 24 hours
[2019-05-16 13:34] VITALS: BMI 31.1
[2019-05-16] MEDS: HYDROcodone/APAP 5-325MG 1 EACH TAB PO PRN ×2 (13:47→21:20)
[2019-05-16] MEDS: AZITHROMYCIN 500 MG in SODIUM CHLORIDE 0.9% 250 ML IVPB SCH (13:48)
[2019-05-16 14:11] LABS: Glucose,Whole Blood 63 mg/dL (75-99)
[2019-05-16 14:19] LABS: Glucose,Whole Blood 85 mg/dL (75-99)
[2019-05-16 17:03] LABS: Glucose,Whole Blood 235 mg/dL (75-99)
[2019-05-16] MEDS: ATORVASTATIN 80 MG TAB PO SCH (21:05)
[2019-05-16 21:10] LABS: Glucose,Whole Blood 320 mg/dL (75-99)
[2019-05-16] MEDS: INSULIN DETEMIR (LEVEMIR) 100 UNIT/ML SYR SQ SCH (21:19)
[2019-05-17] MEDS: methylPREDNISolone SOD SUCCI 40 MG/ML 1 ML VIAL IV SCH ×2 (00:29→12:09)
--- NOTE | 2019-05-17 07:03 | PN ---
PROGRESS NOTE A 53-year-old white female admitted with congestive cough, chest pain, pleuritic cough, tracheobronchitis, being treated with IV antibiotics, steroids. Patient is improved. Cardiology also saw patient today, adjusted blood pressure medications. LUNGS: Transmitted upper airway sounds, scattered wheeze. HEMATOLOGY: Negative Homans. HEART: S1, S2. EXTREMITIES: 2+ edema. Examination show well nourished, in no acute distress. ASSESSMENT: 1. Tracheobronchitis, chronic cough, acute hypoxemic respiratory distress secondary to cough. 2. Atypical chest pain. 3. Hyperkalemia. 4. Stage renal disease. 5. Hypertension. 6. Dyslipidemia. 7. Diabetes mellitus. Cardiology has cleared her. Possible discharge home with antibiotics for tracheobronchitis. MMODL / IJN: [id number] /
[2019-05-17 07:05] LABS: Glucose,Whole Blood 263 mg/dL (75-99)
[2019-05-17] MEDS: hydrALAZINE HCL 50 MG TAB PO SCH (08:11)
[2019-05-17] MEDS: cloNIDine HCL 0.1 MG TAB PO SCH (08:11)
[2019-05-17] MEDS: GABAPENTIN 100 MG CAP PO SCH (08:11)
[2019-05-17] MEDS: DIAZEPAM 5 MG TAB PO SCH (08:11)
[2019-05-17] MEDS: SEVELAMER 800 MG TAB PO SCH ×2 (08:11→12:57)
[2019-05-17] MEDS: FOLIC ACID-VIT B COMPLEX-VIT C 1 CAP PO SCH (08:11)
[2019-05-17] MEDS: INSULIN ASPART (NovoLOG) 100 UNIT/ML VIAL SQ SCH ×4 (08:12→12:57)
[2019-05-17] MEDS: IPRATROPIUM-ALBUTEROL 3 ML NEB INHALATION PRN (09:41)
--- NOTE | 2019-05-17 11:29 | P.PN ---
Subjective Patient is seen in follow-up for end-stage renal disease. She is maintained on hemodialysis on Thursday schedule. Potassium level improved postdialysis. She is currently undergoing hemodialysis. Cough is gradually improving. No vomiting or diarrhea. Hemodynamically stable. Vital signs are stable. General: The patient appeared well nourished and normally developed. HEENT: Head exam is unremarkable. Neck is without jugular venous distension. LUNGS: Lungs are clear to auscultation and percussion. Breath sounds decreased. HEART: Rate and Rhythm are regular. First and second heart sounds normal. No murmurs, rubs or gallops. ABDOMEN: Abdominal exam reveals normal bowel sounds. Non-tender and non- distended. No evidence of peritonitis. EXTREMITITES: No edema. Objective - Vital Signs Vital signs: Vital Signs Temp 97.7 F 05/17/19 07:22 Pulse 80 05/17/19 09:55 Resp 16 05/17/19 07:22 BP 152/62 05/17/19 07:22 Pulse Ox 96 05/17/19 07:22 Intake & Output 05/16/19 05/17/19 05/17/19 18:59 06:59 18:59 Intake Total 800 250 Output Total 2750 Balance -1950 250 Weight 79.832 kg Intake: Oral 800 250 Output: Hemodialysis 2750 Other: Voiding Method Toilet Toilet # Voids 1 0 # Bowel Movements 0 - Labs CBC & Chem 7: 05/16/19 05:45 05/16/19 16:18 Labs: Abnormal Lab Results - Last 24 Hours (Table) 05/16/19 05/16/19 05/16/19 Range/Units 11:38 14:06 16:18 Potassium 5.8 H (3.5-5.1) mmol/L POC Glucose (mg/dL) 112 H 63 L (75-99) mg/dL 05/16/19 05/16/19 05/17/19 Range/Units 16:53 21:01 06:44 Potassium (3.5-5.1) mmol/L POC Glucose (mg/dL) 235 H 320 H 263 H (75-99) mg/dL Microbiology - Last 24 Hours (Table) 05/15/19 01:16 Blood Culture - Preliminary Blood No Growth after 48 hours Assessment and Plan Plan: Assessment: 1. End-stage renal disease maintained on hemodialysis on Thursday schedule. 2. Hyperkalemia secondary to chronic kidney disease. Improved postdialysis. 3. Hypertension with chronic kidney disease. Controlled. 4. Anemia of chronic kidney disease maintained on Aranesp. 5. Chronic kidney disease mineral bone disease maintained on Renvela. 6. Volume overload. Better. 7. Diabetes mellitus. Blood sugars are not too high. Plan: Currently seen while undergoing hemodialysis. Next treatment on . Low potassium diet. Patient is not on any meds that could raise the potassium. Stable to be discharged home from nephrology standpoint.
[2019-05-17 11:41] VITALS: BP 149/68; PULSE 74; RESP 20; TEMP 97.9
[2019-05-17 11:45] LABS: Glucose,Whole Blood 131 mg/dL (75-99)
[2019-05-17] MEDS: NIFEdipine XL 90 MG TAB.ER.24 PO SCH (12:07)
[2019-05-17] MEDS: LABETALOL 200 MG TAB PO SCH (12:08)
[2019-05-17] MEDS: FUROSEMIDE 80 MG TAB PO SCH (12:08)
[2019-05-17] MEDS: PANTOPRAZOLE 40 MG TABLET PO SCH (12:08)
[2019-05-17] MEDS: ASPIRIN 81 MG PO SCH (12:08)
[2019-05-17] MEDS: AZITHROMYCIN 500 MG in SODIUM CHLORIDE 0.9% 250 ML IVPB SCH (12:09)
[2019-05-17] MEDS: CYCLOBENZAPRINE 5 MG TAB PO SCH (12:09)
--- NOTE | 2019-05-20 17:31 | P.DS ---
Providers Date of admission: 05/15/19 01:42 Attending physician: David Bragg Consults: 05/15/19 01:40 Consult Physician Urgent Consulting Provider: Rachael Orozco Consult Reason/Comments: need dialysis Do you want consulting provider notified?: Yes 05/15/19 08:50 Consult Physician Routine Consulting Provider: Urbano Tesfaye Consult Reason/Comments: cp Do you want consulting provider notified?: Yes 05/15/19 15:42 Consult Physician Routine Consulting Provider: Urbano Tesfaye Consult Reason/Comments: pericardial effusion/cp Do you want consulting provider notified?: Yes Primary care physician: [facility] Course: Final diagnoses Acute hypoxic respiratory failure secondary to mild acute fluid overload secondary to possible mild component of acute CHF, diastolic dysfunction, EF 50-55%, Tracheobronchitis Atypical chest pain End-stage renal disease on hemodialysis Anemia of chronic kidney disease Hyperkalemia diabetes mellitus Hypertension Dyslipidemia Evaluated by cardiology, nephrology. Chest pain resolved. Potassium level improved postdialysis. Significant clinical improvement. By all consults for discharge. Please refer to H&P and consult notes for further details. Patient is being discharged home in a stable condition with guarded prognosis. Exam: General: Alert and oriented 3, no acute distress LUNGS: Lungs are clear to auscultation and percussion, bilateral bases diminished. HEART: Rate and Rhythm are regular. First and second heart sounds normal. No murmurs, rubs or gallops. ABDOMEN: Abdominal exam reveals normal bowel sounds. Non-tender and non-diste nded. The impression and plan of care has been dictated as directed. : I performed a history and examination of this patient, discussed the same with the dictator. I agree with the dictator's note ,documented as a scribe. Any additional findings or plans will be noted. Patient Condition at Discharge: Stable Plan - Discharge Summary Discharge Rx Participant: No New Discharge Prescriptions: New predniSONE 10 mg PO DIRECTED #30 tab Azithromycin [Zithromax] 500 mg PO DAILY 3 Days #3 tab Albuterol Sulfate [Ventolin HFA] 2 puff INHALATION Q6H PRN #1 inhaler PRN Reason: Shortness Of Breath Continue Cyclobenzaprine [Flexeril] 5 mg PO HS Insulin Glargine [Lantus] 70 unit SQ HS cloNIDine HCL 0.3 mg PO TID Sevelamer [Renvela] 800 mg PO DAILY PRN PRN Reason: SNACKS Furosemide [Lasix] 80 mg PO BID Prochlorperazine [Compazine] 5 mg PO BID PRN PRN Reason: nausea Sevelamer [Renvela] 2,400 mg PO AC-TID INSULIN LISPRO (humaLOG) [humaLOG] See Protocol SQ AC-TID Gabapentin [Neurontin] 100 mg PO TID INSULIN LISPRO (humaLOG) [humaLOG] 18 unit SQ AC-TID traMADol HCL [Ultram] 50 mg PO Q4HR PRN PRN Reason: Pain Omeprazole 20 mg PO BID Lidocaine-Prilocaine Cream [Emla Cream 2.5%/2.5%] 1 applic TOPICAL DI RECTED rOPINIRole HCL [Requip] 1 mg PO TID HYDROcodone/APAP 5-325MG [[place] 5-325] 1 tab PO Q8H PRN PRN Reason: Pain Folic Acid-Vit B Complex-Vit C [Nephrocaps] 1 cap PO DAILY hydrALAZINE HCL [Apresoline] 100 mg PO TID Aspirin EC [Ecotrin Low Dose] 81 mg PO DAILY #30 tablet. Atorvastatin [Lipitor] 80 mg PO HS #30 tab NIFEdipine XL [Procardia XL] 90 mg PO DAILY #30 tab.er.24 Labetalol [Trandate] 400 mg PO BID #120 tab Diazepam [Valium] 5 mg PO BID diphenhydrAMINE HCL [Benadryl] 25 mg PO HS Promethazine 6.25MG/5Ml [Phenergan Syrup] 6.25 mg PO Q6H PRN PRN Reason: Cough Discharge Medication List Cyclobenzaprine [Flexeril] 5 mg PO HS 09/14/15 [History] Insulin Glargine [Lantus] 70 unit SQ HS 04/18/16 [History] cloNIDine HCL 0.3 mg PO TID 12/16/16 [History] Sevelamer [Renvela] 800 mg PO DAILY PRN 08/21/17 [History] Furosemide [Lasix] 80 mg PO BID 10/22/17 [History] Prochlorperazine [Compazine] 5 mg PO BID PRN 10/26/17 [History] Sevelamer [Renvela] 2,400 mg PO AC-TID 03/13/18 [History] Gabapentin [Neurontin] 100 mg PO TID 05/17/18 [History] INSULIN LISPRO (humaLOG) [humaLOG] See Protocol SQ AC-TID 05/17/18 [History] INSULIN LISPRO (humaLOG) [humaLOG] 18 unit SQ AC-TID 07/12/18 [History] Omeprazole 20 mg PO BID 11/01/18 [History] traMADol HCL [Ultram] 50 mg PO Q4HR PRN 11/01/18 [History] Lidocaine-Prilocaine Cream [Emla Cream 2.5%/2.5%] 1 applic TOPICAL DIRECTED 11/21/18 [History] HYDROcodone/APAP 5-325MG [[place] 5-325] 1 tab PO Q8H PRN 12/01/18 [History] rOPINIRole HCL [Requip] 1 mg PO TID 12/01/18 [History] Folic Acid-Vit B Complex-Vit C [Nephrocaps] 1 cap PO DAILY 12/14/18 [History] hydrALAZINE HCL [Apresoline] 100 mg PO TID 12/14/18 [History] Aspirin EC [Ecotrin Low Dose] 81 mg PO DAILY #30 tablet. 12/17/18 [Rx] Atorvastatin [Lipitor] 80 mg PO HS #30 tab 12/17/18 [Rx] Labetalol [Trandate] 400 mg PO BID #120 tab 12/17/18 [Rx] NIFEdipine XL [Procardia XL] 90 mg PO DAILY #30 tab.er.24 12/17/18 [Rx] Diazepam [Valium] 5 mg PO BID 01/21/19 [History] Promethazine 6.25MG/5Ml [Phenergan Syrup] 6.25 mg PO Q6H PRN 05/15/19 [History] diphenhydrAMINE HCL [Benadryl] 25 mg PO HS 05/15/19 [History] Albuterol Sulfate [Ventolin HFA] 2 puff INHALATION Q6H PRN #1 inhaler 05/17/19 [Rx] Azithromycin [Zithromax] 500 mg PO DAILY 3 Days #3 tab 05/17/19 [Rx] predniSONE 10 mg PO DIRECTED #30 tab 05/17/19 [Rx] Follow up Appointment(s)/Referral(s): David Bragg MD [Primary Care Provider] - 05/19/19 2:00 pm Yesenia Guaman MD [STAFF PHYSICIAN] - 06/08/19 2:30 pm (Reactive hepatitis B antigen) Royal Jones DO [STAFF PHYSICIAN] - 1 Week (follow up in the [place] office [phone]) Ambulatory/Diagnostic Orders: Complete Blood Count w/diff [LAB.AMB] Time Frame: 3 Days, Location: None Selected Patient Instructions/Handouts: Hemodialysis (DC) Activity/Diet/Wound Care/Special Instructions: Hemodialysis as per nephrology Discharge Disposition: HOME SELF-CARE
== END 2019-05-17 13:16 | disposition home or self-care (01) ==
LOC: EC 23:30 → INTOOBSV 05-15 01:42 → 6NMEDSUR 05-15 01:42
PROVIDERS: ADMIT Family Medicine; ATTEND Family Medicine
DX: J96.01 Acute respiratory failure with hypoxia (principal); E87.70 Fluid overload, unspecified; I50.31 Acute diastolic (congestive) heart failure; J40 Bronchitis, not specified as acute or chronic; I13.2 Hypertensive heart and chronic kidney disease with heart failure and with stage 5 chronic kidney disease, or end stage renal disease; N18.6 End stage renal disease; D63.1 Anemia in chronic kidney disease; E11.69 Type 2 diabetes mellitus with other specified complication; E87.5 Hyperkalemia; E11.22 Type 2 diabetes mellitus with diabetic chronic kidney disease; E78.5 Hyperlipidemia, unspecified; K76.9 Liver disease, unspecified; H26.9 Unspecified cataract; E11.319 Type 2 diabetes mellitus with unspecified diabetic retinopathy without macular edema; H35.63 Retinal hemorrhage, bilateral; M89.8X9 Other specified disorders of bone, unspecified site; I31.3 Pericardial effusion (noninflammatory); R18.8 Other ascites; R93.7 Abnormal findings on diagnostic imaging of other parts of musculoskeletal system; K86.81 Exocrine pancreatic insufficiency; Z79.899 Other long term (current) drug therapy; Z79.4 Long term (current) use of insulin; Z88.1 Allergy status to other antibiotic agents; Z91.041 Radiographic dye allergy status; Z86.2 Personal history of diseases of the blood and blood-forming organs and certain disorders involving the immune mechanism; Z99.2 Dependence on renal dialysis; Z87.01 Personal history of pneumonia (recurrent); Z86.39 Personal history of other endocrine, nutritional and metabolic disease; Z87.19 Personal history of other diseases of the digestive system; Z87.440 Personal history of urinary (tract) infections; Z86.69 Personal history of other diseases of the nervous system and sense organs; Z87.81 Personal history of (healed) traumatic fracture; Z98.890 Other specified postprocedural states; Z90.411 Acquired partial absence of pancreas; Z82.49 Family history of ischemic heart disease and other diseases of the circulatory system; Z80.9 Family history of malignant neoplasm, unspecified
CPT/HCPCS: 96376 ×3; 96361 ×2; 96365; 96366 ×3; 96367; 96375 ×2; 96368; 99285; 36415; 94640 ×5; 94760 ×2; 93005; 85379; 83880; 80053 ×2; 83735; 84132; 84484; 85025 ×2; 85610; 85730; 86706; 87340; 87040; 83036; 71046; 71275; G0257 ×2; G0378 ×2; J2920 ×3; J2930; J2405; J0456 ×2; J0610; J0881; Q9967; 90935

== ENCOUNTER 2019-05-23 11:30 | Inpatient (IN) | payer OTHER ==
--- NOTE | 2019-05-23 12:11 | ED ---
General Adult HPI - General Chief complaint: GI Bleed Stated complaint: anal bleeding Time Seen by Provider: 05/23/19 11:35 Source: patient, RN notes reviewed, old records reviewed Mode of arrival: ambulatory Limitations: no limitations - History of Present Illness Initial comments: This is a 53-year-old female who presents emergency Department with a past medical history significant for renal dialysis. Patient comes in and states that over the last few days she's had some bright red blood per rectum when she has a bowel movement. Patient states started in the day when she was constipated and had a large bowel movement. Patient states there is no rectal pain there's no abdominal pain. Patient denies any fever chills per patient denies lightheadedness or dizziness. Patient states she's always a little anemic but she was concerned because he continues to have some bright red blood per rectum. Patient states she has been told she has hemorrhoids in the past. - Related Data Home Medications Medication Instructions Recorded Confirmed Cyclobenzaprine [Flexeril] 5 mg PO HS 09/14/15 05/23/19 Insulin Glargine [Lantus] 70 unit SQ HS 04/18/16 05/23/19 cloNIDine HCL 0.3 mg PO TID 12/16/16 05/23/19 Sevelamer [Renvela] 800 mg PO DAILY PRN 08/21/17 05/23/19 Furosemide [Lasix] 80 mg PO BID 10/22/17 05/23/19 Prochlorperazine [Compazine] 5 mg PO BID PRN 10/26/17 05/23/19 Sevelamer [Renvela] 2,400 mg PO AC-TID 03/13/18 05/23/19 Gabapentin [Neurontin] 100 mg PO TID 05/17/18 05/23/19 INSULIN LISPRO (humaLOG) [humaLOG] See Protocol SQ AC-TID 05/17/18 05/23/19 INSULIN LISPRO (humaLOG) [humaLOG] 18 unit SQ AC-TID 07/12/18 05/23/19 Omeprazole 20 mg PO BID 11/01/18 05/23/19 traMADol HCL [Ultram] 50 mg PO Q4HR PRN 11/01/18 05/23/19 Lidocaine-Prilocaine Cream [Emla 1 applic TOPICAL TUTHSA 11/21/18 05/23/19 Cream 2.5%/2.5%] HYDROcodone/APAP 5-325MG [[place] 1 tab PO Q8H PRN 12/01/18 05/23/19 5-325] rOPINIRole HCL [Requip] 1 mg PO TID 12/01/18 05/23/19 Folic Acid-Vit B Complex-Vit C 1 cap PO DAILY 12/14/18 05/23/19 [Nephrocaps] hydrALAZINE HCL [Apresoline] 100 mg PO TID 12/14/18 05/23/19 Diazepam [Valium] 5 mg PO BID 01/21/19 05/23/19 Promethazine 6.25MG/5Ml [Phenergan 6.25 mg PO Q6H PRN 05/15/19 05/23/19 Syrup] diphenhydrAMINE HCL [Benadryl] 25 mg PO HS 05/15/19 05/23/19 Albuterol Sulfate [Ventolin HFA] 2 puff INHALATION RT-Q6H PRN 05/23/19 05/23/19 predniSONE See Taper PO DIRECTED 05/23/19 05/23/19 Previous Rx's Medication Instructions Recorded Aspirin EC [Ecotrin Low Dose] 81 mg PO DAILY #30 tablet. 12/17/18 Atorvastatin [Lipitor] 80 mg PO HS #30 tab 12/17/18 Labetalol [Trandate] 400 mg PO BID #120 tab 12/17/18 NIFEdipine XL [Procardia XL] 90 mg PO DAILY #30 tab.er.24 12/17/18 Allergies Allergy/AdvReac Type Severity Reaction Status Date / Time ciprofloxacin [From Cipro] AdvReac AFFECTED Verified 05/23/19 13:40 EYESIGHT ciprofloxacin HCl AdvReac AFFECTED Verified 05/23/19 13:40 [From Cipro] EYESIGHT Iodinated Contrast Media AdvReac RENAL Verified 05/23/19 13:40 FAILURE Review of Systems ROS Statement: Those systems with pertinent positive or pertinent negative responses have been documented in the HPI. ROS Other: All systems not noted in ROS Statement are negative. 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 hemodialysis for acute kidney injury 2 months in 2009 after pancreatic OR, 11/2015 diagnosed w/ chronic kidney disease-hemodialysis /-last hemodialysis 07-10-18, IDDM type II, past DKA, pt states she has dry heaves day after dialysis, UTI, chronic anemia, frequent body cramping, occasional low back pain, carter's palsy x2, past L leg fx, p ossible liver disease-recent liver bx-results unknown per pt. History of Any Multi-Drug Resistant Organisms: None Reported Past Surgical History: Orthopedic Surgery, Uterine Ablation Additional Past Surgical History / Comment(s): Recent liver biopsy done at [place] but pt states they have never contacted her with the results, 08/26/17 colonoscopy with polypectomy/bx, pancreatic resection at [facility] 2009, bone marrow biopsies X2-last one 05/19/16,. dialysis chest port x 2 with removals, Left arm shunt placement for dialysis - December 2015 and a revision done with shunt. Past Anesthesia/Blood Transfusion Reactions: No Reported Reaction Additional Past Anesthesia/Blood Transfusion Reaction / Comment(s): Pt has received blood transfusions without reaction. Past Psychological History: No Psychological Hx Reported Smoking Status: Never smoker Past Alcohol Use History: None Reported Past Drug Use History: None Reported - Past Family History Brother(s) Family Medical History: No Reported History Mother Family Medical History: Cancer Additional Family Medical History / Comment(s): . Father Family Medical History: Hypertension Additional Family Medical History / Comment(s): Father is 70 yrs old. General Exam - General Exam Comments Initial Comments: GENERAL: Patient is well-developed and well-nourished. Patient is nontoxic and well- hydrated and is in no acute distress. ENT: Neck is soft and supple. No significant lymphadenopathy is noted. Oropharynx is clear. Moist mucous membranes. Neck has full range of motion without eliciting any pain. EYES: The sclera were anicteric and conjunctiva were pink and moist. Extraocular movements were intact and pupils were equal round and reactive to light. Eyelids were unremarkable. PULMONARY: Unlabored respirations. Good breath sounds bilaterally. No audible rales rhonchi or wheezing was noted. CARDIOVASCULAR: There is a regular rate and rhythm without any murmurs gallops or rubs. ABDOMEN: Soft and nontender with normal bowel sounds. Patient has a distended abdomen which she says is normal for her. RECTAL: No obvious site of bleeding is noted on rectal exam SKIN: Skin is clear with no lesions or rashes and otherwise unremarkable. NEUROLOGIC: Patient is alert and oriented x3. Cranial nerves II through XII are grossly intact. Motor and sensory are also intact. Normal speech, volume and content. Symmetrical smile. MUSCULOSKELETAL: Normal extremities with adequate strength and full range of motion. No lower extremity swelling or edema. No calf tenderness. LYMPHATICS: No significant lymphadenopathy is noted PSYCHIATRIC: Normal psychiatric evaluation. Limitations: no limitations Course Vital Signs 05/23/19 05/23/19 05/23/19 11:35 12:15 13:30 Temperature 97.8 F Pulse Rate 77 71 73 Respiratory 18 18 18 Rate Blood Pressure 188/81 189/89 197/90 O2 Sat by Pulse 100 97 98 Oximetry Medical Decision Making - Medical Decision Making EKG shows normal sinus rhythm at 73 bpm [place] interval is 154 QRS is 106 QT interval 394 QTC is 434. Patient's EKG shows no ST segment elevation or depression no T-wave abnormalities are noted. Patient's potassium is elevated. I spoke with Dr. Orozco she wanted to bring the patient in and do dialysis in the hospital. I spoke with Dr. Bragg he agreed to admit the patient admitted the patient wrote admitting orders. I did give the patient IV insulin with D50 as per Dr. Orozco's instruction. On rectal examination I found no active bleeding patient's hemoglobin was stable and I informed Dr. Bragg of these findings. - Lab Data Result diagrams: 05/23/19 12:35 05/23/19 12:35 Lab Results 05/23/19 05/23/19 05/23/19 Range/Units 12:35 12:35 12:35 WBC 5.4 (3.8-10.6) k/uL RBC 2.91 L (3.80-5.40) m/uL Hgb 9.0 L (11.4-16.0) gm/dL Hct 27.8 L (34.0-46.0) % MCV 95.6 (80.0-100.0) fL MCH 31.1 (25.0-35.0) pg MCHC 32.6 (31.0-37.0) g/dL RDW 17.6 H (11.5-15.5) % Plt Count 124 L (150-450) k/uL Neutrophils % 90 % Lymphocytes % 5 % Monocytes % 3 % Eosinophils % 1 % Basophils % 0 % Neutrophils # 4.9 (1.3-7.7) k/uL Lymphocytes # 0.3 L (1.0-4.8) k/uL Monocytes # 0.2 (0-1.0) k/uL Eosinophils # 0.0 (0-0.7) k/uL Basophils # 0.0 (0-0.2) k/uL Anisocytosis Slight Macrocytosis Slight PT 11.2 (9.0-12.0) sec INR 1.1 (<1.2) APTT 21.7 L (22.0-30.0) sec Sodium 135 L (137-145) mmol/L Potassium 6.8 H* (3.5-5.1) mmol/L Chloride 95 L (98-107) mmol/L Carbon Dioxide 25 (22-30) mmol/L Anion Gap 15 mmol/L BUN 100 H (7-17) mg/dL Creatinine 8.25 H* (0.52-1.04) mg/dL Est GFR (CKD-EPI)AfAm 6 (>60 ml/min/1.73 sqM) Est GFR (CKD-EPI)NonAf 5 (>60 ml/min/1.73 sqM) Glucose 116 H (74-99) mg/dL Calcium 9.4 (8.4-10.2) mg/dL Total Bilirubin 0.7 (0.2-1.3) mg/dL AST 37 H (14-36) U/L ALT 68 H (4-34) U/L Alkaline Phosphatase 76 (38-126) U/L Total Protein 6.7 (6.3-8.2) g/dL Albumin 4.3 (3.5-5.0) g/dL Critical Care Time Critical Care Time: Yes Total Critical Care Time: 35 Disposition Clinical Impression: Hyperkalemia, Rectal bleeding Disposition: ADMITTED IP TO THIS [facility] Referrals: David Bragg MD [Primary Care Provider] - 1-2 days Time of Disposition: 13:57
[2019-05-23 12:48] LABS: Anisocytosis Slight; Basophils % (A) 0 %; Eosinophils % (A) 1 %; HCT 27.8 % (34.0-46.0); Lymphocytes # (A) 0.3 k/uL (1.0-4.8); Lymphocytes % (A) 5 %; MCH 31.1 pg (25.0-35.0); MCHC 32.6 g/dL (31.0-37.0); MCV 95.6 fL (80.0-100.0); Macrocytosis Slight; Monocytes # (A) 0.2 k/uL (0-1.0); Monocytes % (A) 3 %; Neutrophils # (A) 4.9 k/uL (1.3-7.7); Neutrophils % (A) 90 %; Platelet Count 124 k/uL (150-450); RBC 2.91 m/uL (3.80-5.40); RDW 17.6 % (11.5-15.5); WBC 5.4 k/uL (3.8-10.6)
[2019-05-23 13:04] LABS: Albumin 4.3 g/dL (3.5-5.0); Calcium 9.4 mg/dL (8.4-10.2); Total Bilirubin 0.7 mg/dL (0.2-1.3); Total Protein 6.7 g/dL (6.3-8.2)
[2019-05-23 13:11] LABS: INR 1.1 (<1.2); Partial Thromboplastin Time 21.7 sec (22.0-30.0); Prothrombin Time 11.2 sec (9.0-12.0)
[2019-05-23 13:15] LABS: Potassium 6.8 mmol/L (3.5-5.1)
[2019-05-23] MEDS ORDERED: NIFEdipine XL 90 MG TAB.ER.24 PO STA (13:37)
[2019-05-23] MEDS ORDERED: cloNIDine HCL 0.1 MG TAB PO STA (13:38)
[2019-05-23] MEDS ORDERED: FUROSEMIDE 80 MG TAB PO STA (13:39)
[2019-05-23] MEDS ORDERED: hydrALAZINE HCL 50 MG TAB PO STA (13:40)
[2019-05-23] MEDS ORDERED: LABETALOL 200 MG TAB PO STA (13:43)
[2019-05-23] MEDS ORDERED: INSULIN REGULAR 100 UNIT/ML VIAL IV ONE (13:57)
[2019-05-23] MEDS ORDERED: DEXTROSE 50% SYRINGE 50 ML IVP STA (13:58)
[2019-05-23 18:37] LABS: Anisocytosis Slight; Basophils % (A) 0 %; Eosinophils % (A) 1 %; HCT 27.5 % (34.0-46.0); Lymphocytes # (A) 0.4 k/uL (1.0-4.8); Lymphocytes % (A) 5 %; MCH 31.8 pg (25.0-35.0); MCHC 32.9 g/dL (31.0-37.0); MCV 96.8 fL (80.0-100.0); Macrocytosis Slight; Mean Platelet Volume 8.4; Monocytes # (A) 0.3 k/uL (0-1.0); Monocytes % (A) 4 %; Neutrophils # (A) 6.1 k/uL (1.3-7.7); Neutrophils % (A) 89 %; Platelet Count 166 k/uL (150-450); RBC 2.84 m/uL (3.80-5.40); RDW 17.7 % (11.5-15.5); WBC 6.8 k/uL (3.8-10.6)
[2019-05-23] MEDS ORDERED: PROCHLORPERAZINE 5 MG TAB PO PRN (23:17)
[2019-05-23] MEDS ORDERED: SEVELAMER 800 MG TAB PO PRN (23:17)
[2019-05-23] MEDS ORDERED: PROMETHAZINE HCL 6.25 MG/5 ML CUP PO PRN (23:17)
[2019-05-23] MEDS: HYDROcodone/APAP 5-325MG 1 EACH TAB PO PRN (23:36)
[2019-05-24 02:05] LABS: Anisocytosis Slight; Basophils # (A) 0.1 k/uL (0-0.2); Basophils % (A) 1 %; Eosinophils # (A) 0.1 k/uL (0-0.7); Eosinophils % (A) 1 %; HCT 26.6 % (34.0-46.0); HGB 8.5 gm/dL (11.4-16.0); Lymphocytes # (A) 0.5 k/uL (1.0-4.8); Lymphocytes % (A) 9 %; MCH 31.1 pg (25.0-35.0); Macrocytosis Slight; Mean Platelet Volume 8.5; Monocytes # (A) 0.3 k/uL (0-1.0); Monocytes % (A) 5 %; Neutrophils # (A) 4.3 k/uL (1.3-7.7); Neutrophils % (A) 83 %; Platelet Count 134 k/uL (150-450); RBC 2.74 m/uL (3.80-5.40); RDW 17.9 % (11.5-15.5); WBC 5.2 k/uL (3.8-10.6)
[2019-05-24 04:00] LABS: Glucose,Whole Blood 117 mg/dL (75-99)
--- NOTE | 2019-05-24 05:24 | HP ---
HISTORY AND PHYSICAL CHIEF COMPLAINT: A 53-year-old white female, end-stage renal disease, came in after missing dialysis over the weekend due to weather changes. She came in with severe hyperkalemia of 6.7. Renal physician wanted her admitted for renal dialysis today prior to going home. HOME MEDICATIONS: See list. REVIEW OF SYSTEMS: Fourteen-point review of systems negative except for mentioned in HPI. PAST MEDICAL HISTORY: As mentioned, diabetes mellitus, hypertension, liver disease, end-stage renal disease, heart failure, acute renal injuries, recent liver biopsy at [place], unclear etiologies, pancreatic resection in [facility] in 2009. SOCIAL HISTORY: No smoking. No alcohol. No illicit drugs. FAMILY HISTORY: Brother and mother with cancer. Father hypertension. PHYSICAL EXAMINATION: Well developed, well nourished, well hydrated. VITAL SIGNS: Reviewed. CARDIOVASCULAR: S1, S2. GI: Soft. HEMATOLOGY: Negative Homans. PSYCH: Fair mood and affect. NEUROLOGIC: Alert and oriented x3. INTEGUMENT: No rash, excoriations or bruising. Blood pressure is 180s over 90s over 80s to 70s, pulse is 70s to 80s, respiratory rate 18 to 20. ASSESSMENT: 1. Hyperkalemia. 2. End-stage renal failure. 3. Severe hyperkalemia. 4. Hyponatremia. 5. Rectal bleeding, unclear etiology. Check CBC in the morning. Possible surgical consult if bleeding continues, but she had a large hard bowel movement followed by bright red bleeding which she thinks she tore something which sounds reasonable at this point. MMODL / IJN: [id number] /
[2019-05-24 06:18] LABS: Anisocytosis Slight; Basophils % (A) 1 %; Eosinophils # (A) 0.1 k/uL (0-0.7); Eosinophils % (A) 2 %; HCT 27.1 % (34.0-46.0); HGB 8.7 gm/dL (11.4-16.0); Lymphocytes # (A) 0.6 k/uL (1.0-4.8); Lymphocytes % (A) 13 %; MCH 31.1 pg (25.0-35.0); MCHC 32.1 g/dL (31.0-37.0); Macrocytosis Slight; Mean Platelet Volume 8.3; Monocytes # (A) 0.3 k/uL (0-1.0); Monocytes % (A) 6 %; Neutrophils # (A) 3.6 k/uL (1.3-7.7); Neutrophils % (A) 78 %; Platelet Count 125 k/uL (150-450); RDW 18.1 % (11.5-15.5); WBC 4.6 k/uL (3.8-10.6)
[2019-05-24 06:28] LABS: Albumin 3.9 g/dL (3.5-5.0); Calcium 8.7 mg/dL (8.4-10.2); Potassium 5.5 mmol/L (3.5-5.1); Total Bilirubin 0.7 mg/dL (0.2-1.3); Total Protein 6.2 g/dL (6.3-8.2)
[2019-05-24] MEDS: SEVELAMER 800 MG TAB PO SCH ×3 (07:00→17:05)
[2019-05-24] MEDS: PANTOPRAZOLE 40 MG TABLET PO SCH (07:00)
[2019-05-24] MEDS: INSULIN ASPART (NovoLOG) 100 UNIT/ML VIAL SQ SCH ×3 (07:00→18:28)
[2019-05-24 07:01] LABS: Glucose,Whole Blood 91 mg/dL (75-99)
[2019-05-24] MEDS: ALBUTEROL NEBULIZED 2.5 MG/3 ML INHALATION PRN (07:38)
[2019-05-24 10:59] LABS: Glucose,Whole Blood 52 mg/dL (75-99)
[2019-05-24 11:02] LABS: Glucose,Whole Blood 88 mg/dL (75-99)
[2019-05-24] MEDS: HYDROcodone/APAP 5-325MG 1 EACH TAB PO PRN (11:20)
[2019-05-24 11:54] LABS: Glucose,Whole Blood 90 mg/dL (75-99)
[2019-05-24] MEDS ORDERED: DARBEPOETIN ALFA 60 MCG/0.3 ML SYRINGE SQ SCH (12:00)
--- NOTE | 2019-05-24 12:46 | CONS ---
CONSULTATION REASON FOR CONSULTATION: End-stage renal disease, hyperkalemia. HISTORY OF PRESENT ILLNESS: The patient is a 53-year-old female with end-stage renal disease, on hemodialysis on a Thursday, , Thursday schedule at the [facility]. She was admitted to the hospital with complaints of bright red blood per rectum. The patient did admit to constipation. Her hemoglobin was 8.7 g/dL which is not far from the 9 that she had previously. Patient was noted to have a serum potassium of 6.8 yesterday and therefore she was admitted to the hospital. The patient states that she had her treatment on Thursday, however, it was cut short secondary to inclement weather conditions. She has had significant fluid gains and is significantly above her dry weight as outpatient and has not been able to get the fluid off over the holidays. No complaints of fever, chills, cough, nausea, or vomiting. PAST MEDICAL HISTORY: End-stage renal disease, anemia of chronic disease, CKD mineral bone disorder, type 2 diabetes, hyperlipidemia, history of pneumonia, hypertension, hypertriglyceridemia induced pancreatitis, necrotizing pancreatitis previously, chronic back pain, history of Hoffman's palsy, possible underlying liver disease. PAST SURGICAL HISTORY: Liver biopsy, colonoscopy, polypectomy, bone marrow biopsies, AV fistula, revision of the fistula as well. SOCIAL HISTORY: Negative for smoking, drug abuse or alcohol abuse. MEDICATIONS: At home prior to admission included Flexeril, insulin, Renvela, Lasix Compazine, Neurontin, omeprazole, multivitamins, hydralazine, Valium, Benadryl, Phenergan, prednisone, Ventolin, Lipitor, Trandate, Procardia, and aspirin. ALLERGIES: Include CIPRO and IV DYE. PHYSICAL EXAMINATION: On examination, patient is comfortable, awake, alert, oriented x3, not in any acute distress. Blood pressure this morning 150/68, heart rate 74 per minute, she is afebrile. Examination of the heart S1, S2. Examination of the lungs, bilateral breath sounds are heard. Abdomen is soft, nontender. Examination of the lower extremities shows edema 1+ bilaterally. RADIOTELEGRAPHIST exam grossly intact. LABS: Show sodium 134, potassium 5.5, BUN 77, creatinine 7.0, hemoglobin 8.7 g/dL. ASSESSMENT: 1. End-stage renal disease, on hemodialysis on a Thursday, , Thursday schedule at the [facility], currently being dialyzed [id number] for hyperkalemia and volume overload. 2. Volume overload. We will increase the UF to about 4 L today and then if patient is still in the hospital, we will dialyze her again tomorrow for about 2 to 2.5 hours. If she is discharged, she can follow up as outpatient with plans for extra treatment as outpatient at her home dialysis unit. 3. Anemia with history of rectal bleeding, mostly from hemorrhoids and constipation. I will maintain the patient on Aranesp. She has had bone marrow biopsies previously. 4. Hyperkalemia associated with end-stage renal disease. If patient is having an underlying gastrointestinal bleed, this will also contribute to the hyperglycemia. This will also contribute to the hyperkalemia. Her blood sugar is not significantly elevated. PLAN: 1. Aranesp. 2. Repeat hemodialysis in a.m. for about 2-1/2 hours. Follow up as outpatient. GI workup if not done recently. MMODL / IJN: [id number] /
[2019-05-24] MEDS: DIAZEPAM 5 MG TAB PO SCH ×2 (12:50→20:34)
[2019-05-24] MEDS: FUROSEMIDE 80 MG TAB PO SCH ×2 (12:51→20:33)
[2019-05-24] MEDS: GABAPENTIN 100 MG CAP PO SCH ×3 (12:51→20:34)
[2019-05-24] MEDS: ASPIRIN 81 MG PO SCH (12:51)
[2019-05-24] MEDS: cloNIDine HCL 0.1 MG TAB PO SCH ×3 (12:51→20:33)
[2019-05-24] MEDS: hydrALAZINE HCL 50 MG TAB PO SCH ×3 (12:51→20:34)
[2019-05-24] MEDS: NIFEdipine XL 90 MG TAB.ER.24 PO SCH (12:52)
[2019-05-24] MEDS: FOLIC ACID-VIT B COMPLEX-VIT C 1 CAP PO SCH (12:52)
[2019-05-24] MEDS: LIDOCAINE-PRILOCAINE 2.5-2.5% CREAM 5 GM TUBE TOPICAL SCH (12:53)
[2019-05-24] MEDS: LABETALOL 200 MG TAB PO SCH ×2 (12:53→22:36)
--- NOTE | 2019-05-24 13:31 | P.GSCN ---
History of Present Illness Consult date: 05/24/19 Reason for Consult: rectal bleeding Requesting physician: David Bragg History of present illness: CHIEF COMPLAINT: Rectal bleeding HISTORY OF PRESENT ILLNESS: 53-year-old female was admitted to hospital secondary to chronic renal failure. Patient had an episode of bright blood per rectum yesterday. General surgery was consulted for further evaluation. PAST MEDICAL HISTORY: See list. PAST SURGICAL HISTORY: See list. SOCIAL HISTORY: No illicit drug use. REVIEW OF SYSTEMS: CONSTITUTIONAL: Denies fever or chills. HEENT: Denies blurred vision, vision changes, or eye pain. Denies hemoptysis CARDIOVASCULAR: Denies chest pain or pressure. RESPIRATORY: No shortness of breath. GASTROINTESTINAL: Refer to HPI for pertinent findings HEMATOLOGIC: Denies bleeding disorders. GENITOURINARY: Denies any blood in urine. SKIN: Denies pruitis. Denies rash. PHYSICAL EXAM: VITAL SIGNS: Reviewed. GENERAL: Well-developed in no acute distress. HEENT: No sclera icterus. Extraocular movements grossly intact. Moist buccal mucosa. Head is atraumatic, normocephalic. ABDOMEN: Soft. Nondistended. Nontender. NEUROLOGIC: Alert and oriented. Cranial nerves II through XII grossly intact. LABORATORY DATA: WBC 4.6. Hemoglobin 8.7. Platelet count 125. Potassium 5.5. BUN 77. Creatinine 7.05. ASSESSMENT: 1. Rectal bleeding PLAN: Regular today today Clear liquid diet tomorrow and 2L bowel prep tomorrow NPO tomorrow night EGD/Colonoscopy with Dr. Jain Nurse practitioner note has been reviewed by physician. Signing provider agrees with the documented findings, assessment, and plan of care. 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 hemodialysis for acute kidney injury 2 months in 2009 after pancreatic OR, 11/2015 diagnosed w/ chronic kidney disease-hemodialysis /-last hemodialysis 05/23/19, IDDM type II, past DKA, pt states she has dry heaves day after dialysis, UTI, chronic anemia, frequent body cramping, occasional low back pain, carter's palsy x2, past L leg fx, possible liver disease-recent liver bx-results unknown per pt. History of Any Multi-Drug Resistant Organisms: None Reported Past Surgical History: Orthopedic Surgery, Uterine Ablation Additional Past Surgical History / Comment(s): Recent liver biopsy done at [facility] but pt states they have never contacted her with the results, 08/26/17 colonoscopy with polypectomy/bx, pancreatic resection at [facility] 2009, bone marrow biopsies X2-last one 05/19/16,. dialysis chest port x 2 with removals, Left arm shunt placement for dialysis - December 2015 and a revision done with shunt. Past Anesthesia/Blood Transfusion Reactions: No Reported Reaction Additional Past Anesthesia/Blood Transfusion Reaction / Comm: Pt has received blood transfusions without reaction. Past Psychological History: No Psychological Hx Reported Additional Psychological History / Comment(s): Pt resides at her mother in laws home at this time with spouse. They are her mother in laws caretakers. She is independent. She uses no assistive device. She drives. Smoking Status: Never smoker Past Alcohol Use History: None Reported Additional Past Alcohol Use History / Comment(s): Patient is a lifelong nonsmoker. Past Drug Use History: None Reported - Past Family History Brother(s) Family Medical History: No Reported History Mother Family Medical History: Cancer Additional Family Medical History / Comment(s): . Father Family Medical History: Hypertension Additional Family Medical History / Comment(s): alcoholism Medications and Allergies Home Medications Medication Instructions Recorded Confirmed Type Cyclobenzaprine [Flexeril] 5 mg PO HS 09/14/15 05/23/19 History Insulin Glargine [Lantus] 70 unit SQ HS 04/18/16 05/23/19 History cloNIDine HCL 0.3 mg PO TID 12/16/16 05/23/19 History Sevelamer [Renvela] 800 mg PO DAILY PRN 08/21/17 05/23/19 History Furosemide [Lasix] 80 mg PO BID 10/22/17 05/23/19 History Prochlorperazine [Compazine] 5 mg PO BID PRN 10/26/17 05/23/19 History Sevelamer [Renvela] 2,400 mg PO AC-TID 03/13/18 05/23/19 History Gabapentin [Neurontin] 100 mg PO TID 05/17/18 05/23/19 History INSULIN LISPRO (humaLOG) [humaLOG] See Protocol SQ AC-TID 05/17/18 05/23/19 History INSULIN LISPRO (humaLOG) [humaLOG] 18 unit SQ AC-TID 07/12/18 05/23/19 History Omeprazole 20 mg PO BID 11/01/18 05/23/19 History traMADol HCL [Ultram] 50 mg PO Q4HR PRN 11/01/18 05/23/19 History Lidocaine-Prilocaine Cream [Emla 1 applic TOPICAL TUTHSA 11/21/18 05/23/19 History Cream 2.5%/2.5%] HYDROcodone/APAP 5-325MG [[place] 1 tab PO Q8H PRN 12/01/18 05/23/19 History 5-325] rOPINIRole HCL [Requip] 1 mg PO TID 12/01/18 05/23/19 History Folic Acid-Vit B Complex-Vit C 1 cap PO DAILY 12/14/18 05/23/19 History [Nephrocaps] hydrALAZINE HCL [Apresoline] 100 mg PO TID 12/14/18 05/23/19 History Aspirin EC [Ecotrin Low Dose] 81 mg PO DAILY #30 tablet.dr 12/17/18 05/23/19 Rx Atorvastatin [Lipitor] 80 mg PO HS #30 tab 12/17/18 05/23/19 Rx Labetalol [Trandate] 400 mg PO BID #120 tab 12/17/18 05/23/19 Rx NIFEdipine XL [Procardia XL] 90 mg PO DAILY #30 tab.er.24 12/17/18 05/23/19 Rx Diazepam [Valium] 5 mg PO BID 01/21/19 05/23/19 History Promethazine 6.25MG/5Ml [Phenergan 6.25 mg PO Q6H PRN 05/15/19 05/23/19 History Syrup] diphenhydrAMINE HCL [Benadryl] 25 mg PO HS 05/15/19 05/23/19 History Albuterol Sulfate [Ventolin HFA] 2 puff INHALATION RT-Q6H PRN 05/23/19 05/23/19 History predniSONE See Taper PO DIRECTED 05/23/19 05/23/19 History Allergies Allergy/AdvReac Type Severity Reaction Status Date / Time ciprofloxacin [From Cipro] AdvReac AFFECTED Verified 05/23/19 13:40 EYESIGHT ciprofloxacin HCl AdvReac AFFECTED Verified 05/23/19 13:40 [From Cipro] EYESIGHT Iodinated Contrast Media AdvReac RENAL Verified 05/23/19 13:40 FAILURE Surgical - Exam Vital Signs Temp Pulse Resp BP Pulse Ox 97.8 F 77 18 188/81 100 05/23/19 11:35 05/23/19 11:35 05/23/19 11:35 05/23/19 11:35 05/23/19 11:35 Results - Labs 05/24/19 05:49 05/24/19 05:49 Abnormal Lab Results - Last 24 Hours (Table) 05/23/19 05/23/19 05/23/19 Range/Units 12:35 12:35 18:01 RBC 2.84 L (3.80-5.40) m/uL Hgb 9.0 L (11.4-16.0) gm/dL Hct 27.5 L (34.0-46.0) % RDW 17.7 H (11.5-15.5) % Plt Count (150-450) k/uL Lymphocytes # 0.4 L (1.0-4.8) k/uL APTT 21.7 L (22.0-30.0) sec Sodium 135 L (137-145) mmol/L Potassium 6.8 H* (3.5-5.1) mmol/L Chloride 95 L (98-107) mmol/L BUN 100 H (7-17) mg/dL Creatinine 8.25 H* (0.52-1.04) mg/dL Glucose 116 H (74-99) mg/dL POC Glucose (mg/dL) (75-99) mg/dL AST 37 H (14-36) U/L ALT 68 H (4-34) U/L Total Protein (6.3-8.2) g/dL 05/24/19 05/24/19 05/24/19 Range/Units 00:55 03:58 05:49 RBC 2.74 L 2.80 L (3.80-5.40) m/uL Hgb 8.5 L 8.7 L (11.4-16.0) gm/dL Hct 26.6 L 27.1 L (34.0-46.0) % RDW 17.9 H 18.1 H (11.5-15.5) % Plt Count 134 L 125 L (150-450) k/uL Lymphocytes # 0.5 L 0.6 L (1.0-4.8) k/uL APTT (22.0-30.0) sec Sodium (137-145) mmol/L Potassium (3.5-5.1) mmol/L Chloride (98-107) mmol/L BUN (7-17) mg/dL Creatinine (0.52-1.04) mg/dL Glucose (74-99) mg/dL POC Glucose (mg/dL) 117 H (75-99) mg/dL AST (14-36) U/L ALT (4-34) U/L Total Protein (6.3-8.2) g/dL 05/24/19 05/24/19 Range/Units 05:49 10:42 RBC (3.80-5.40) m/uL Hgb (11.4-16.0) gm/dL Hct (34.0-46.0) % RDW (11.5-15.5) % Plt Count (150-450) k/uL Lymphocytes # (1.0-4.8) k/uL APTT (22.0-30.0) sec Sodium 134 L (137-145) mmol/L Potassium 5.5 H (3.5-5.1) mmol/L Chloride 94 L (98-107) mmol/L BUN 77 H (7-17) mg/dL Creatinine 7.05 H* (0.52-1.04) mg/dL Glucose (74-99) mg/dL POC Glucose (mg/dL) 52 L (75-99) mg/dL AST (14-36) U/L ALT 62 H (4-34) U/L Total Protein 6.2 L (6.3-8.2) g/dL Diabetes panel 05/23/19 05/24/19 Range/Units 12:35 05:49 Sodium 135 L 134 L (137-145) mmol/L Potassium 6.8 H* 5.5 H (3.5-5.1) mmol/L Chloride 95 L 94 L (98-107) mmol/L Carbon Dioxide 25 25 (22-30) mmol/L BUN 100 H 77 H (7-17) mg/dL Creatinine 8.25 H* 7.05 H* (0.52-1.04) mg/dL Glucose 116 H 85 (74-99) mg/dL Calcium 9.4 8.7 (8.4-10.2) mg/dL AST 37 H 36 (14-36) U/L ALT 68 H 62 H (4-34) U/L Alkaline Phosphatase 76 63 (38-126) U/L Total Protein 6.7 6.2 L (6.3-8.2) g/dL Albumin 4.3 3.9 (3.5-5.0) g/dL Calcium panel 05/23/19 05/24/19 Range/Units 12:35 05:49 Calcium 9.4 8.7 (8.4-10.2) mg/dL Albumin 4.3 3.9 (3.5-5.0) g/dL Pituitary panel 05/23/19 05/24/19 Range/Units 12:35 05:49 Sodium 135 L 134 L (137-145) mmol/L Potassium 6.8 H* 5.5 H (3.5-5.1) mmol/L Chloride 95 L 94 L (98-107) mmol/L Carbon Dioxide 25 25 (22-30) mmol/L BUN 100 H 77 H (7-17) mg/dL Creatinine 8.25 H* 7.05 H* (0.52-1.04) mg/dL Glucose 116 H 85 (74-99) mg/dL Calcium 9.4 8.7 (8.4-10.2) mg/dL Adrenal panel 05/23/19 05/24/19 Range/Units 12:35 05:49 Sodium 135 L 134 L (137-145) mmol/L Potassium 6.8 H* 5.5 H (3.5-5.1) mmol/L Chloride 95 L 94 L (98-107) mmol/L Carbon Dioxide 25 25 (22-30) mmol/L BUN 100 H 77 H (7-17) mg/dL Creatinine 8.25 H* 7.05 H* (0.52-1.04) mg/dL Glucose 116 H 85 (74-99) mg/dL Calcium 9.4 8.7 (8.4-10.2) mg/dL Total Bilirubin 0.7 0.7 (0.2-1.3) mg/dL AST 37 H 36 (14-36) U/L ALT 68 H 62 H (4-34) U/L Alkaline Phosphatase 76 63 (38-126) U/L Total Protein 6.7 6.2 L (6.3-8.2) g/dL Albumin 4.3 3.9 (3.5-5.0) g/dL
[2019-05-24 16:56] LABS: Glucose,Whole Blood 236 mg/dL (75-99)
[2019-05-24] MEDS: diphenhydrAMINE 25 MG CAP PO SCH (20:33)
[2019-05-24] MEDS: ATORVASTATIN 80 MG TAB PO SCH (20:34)
[2019-05-24] MEDS: CYCLOBENZAPRINE 5 MG TAB PO SCH (20:34)
[2019-05-24] MEDS: INSULIN DETEMIR (LEVEMIR) 100 UNIT/ML SYR SQ SCH (20:34)
[2019-05-24 20:35] LABS: Glucose,Whole Blood 119 mg/dL (75-99)
--- NOTE | 2019-05-24 22:06 | PN ---
PROGRESS NOTE This patient is a 53-year-old white female admitted with chronic renal failure, severe hyperkalemia. Potassium was down to 5.5 after dialysis yesterday. She had bright red blood per rectum since admission. She continues to have this. She is scheduled for EGD and colonoscopy in a day or two. Monitor hemoglobin in the meantime. CARDIOVASCULAR: S1, S2. LUNGS: Clear. GI: Soft. Tomorrow prep with good diet. N.p.o. tomorrow night. EGD and colonoscopy on Thursday or with Dr. Jain. MMODL / IJN: [id number] /
[2019-05-25] MEDS: SEVELAMER 800 MG TAB PO SCH ×3 (06:53→19:16)
[2019-05-25] MEDS: PANTOPRAZOLE 40 MG TABLET PO SCH (06:53)
[2019-05-25 07:01] LABS: Glucose,Whole Blood 93 mg/dL (75-99)
[2019-05-25] MEDS: ALBUTEROL NEBULIZED 2.5 MG/3 ML INHALATION PRN (07:13)
[2019-05-25] MEDS: FOLIC ACID-VIT B COMPLEX-VIT C 1 CAP PO SCH (08:39)
[2019-05-25] MEDS: GABAPENTIN 100 MG CAP PO SCH ×3 (08:39→21:52)
[2019-05-25] MEDS: HYDROcodone/APAP 5-325MG 1 EACH TAB PO PRN ×2 (08:39→21:52)
[2019-05-25] MEDS: INSULIN ASPART (NovoLOG) 100 UNIT/ML VIAL SQ SCH ×3 (08:40→19:18)
[2019-05-25] MEDS: ASPIRIN 81 MG PO SCH (08:40)
[2019-05-25] MEDS ORDERED: PEG 3350-NA SULF,BICARB,CL/KCL 4,000 ML BOTTLE PO ONE ×2 (12:00)
--- NOTE | 2019-05-25 12:05 | CDI ---
Documentation Clarification Form Date: 05/25/2019 11:51:35 AM From: Latosha Melchor RN CCDS Admit Date: 05/23/2019 01:59:00 PM Patient Name: Sara Desouza Visit Number: [id number] Discharge Date: ATTENTION: The Clinical Documentation Specialists (CDI) and [facility] Coding Staff appreciate your assistance in clarifying documentation. Please respond to the clarification below the line at the bottom and electronically sign. The CDI & [facility] Coding staff will review the response and follow-up if needed. Please note: Queries are made part of the Legal Health Record. If you have any questions, please contact the author of this message via ITS. Dr. David Bragg Heart Failure is mentioned in the H & P past medical history History/Risk Factors:53-year-old female presents to the ED with rectal bleeding. Medical history HTN; DM; ESRD; Clinical Indicators: VS/Pulse OX: 188/81 77 97.8 18 100% ra Echocardiogram Results: 12/15/2018 Severe concentric left ventricular hypertrophy; Overall left ventricular systolic function is low-normal with an EF 50-55% Treatment: 05/24 Lasix 80mg po bid; Labetalol Hcl 400mg po bid; In your professional opinion, can you please clarify the acuity and type of CHF if known? * Chronic Diastolic Heart Failure * Chronic Systolic & Diastolic Heart Failure * Heart Failure ruled out * Unable to Determine * Other, please specify (Last Revision: August 2017) MTDD
--- NOTE | 2019-05-25 12:16 | P.PN ---
Subjective Progress Note Date: 05/25/19 CHIEF COMPLAINT: Rectal bleeding HISTORY OF PRESENT ILLNESS: Patient examined at the bedside with Dr. Jain. Patient reports abdominal cramping this morning. Tolerating clear liquid diet. PHYSICAL EXAM: VITAL SIGNS: Reviewed. GENERAL: Well-developed in no acute distress. HEENT: No sclera icterus. Extraocular movements grossly intact. Moist buccal mucosa. Head is atraumatic, normocephalic. ABDOMEN: Soft. Nondistended. Nontender. NEUROLOGIC: Alert and oriented. Cranial nerves II through XII grossly intact. ASSESSMENT: 1. Rectal bleeding PLAN: Clear liquid diet NPO at midnight 2L bowel prep EGD/Colonoscopy tomorrow with Dr. Jain Nurse practitioner note has been reviewed by physician. Signing provider agrees with the documented findings, assessment, and plan of care. Objective - Vital Signs Vital signs: Vital Signs Temp 98.4 F 05/25/19 10:34 Pulse 71 05/25/19 10:34 Resp 18 05/25/19 11:24 BP 145/75 05/25/19 10:34 Pulse Ox 96 05/25/19 04:00 Intake & Output 05/24/19 05/25/19 05/25/19 18:59 06:59 18:59 Intake Total 358 480 360 Output Total 3700 3000 Balance -3342 480 -2640 Weight 81.9 kg Intake: Oral 358 480 360 Output: Hemodialysis 3700 3000 Other: Voiding Method Toilet Toilet # Voids 2 - Labs CBC & Chem 7: 05/24/19 05:49 05/24/19 05:49 Labs: Abnormal Lab Results - Last 24 Hours (Table) 05/24/19 05/24/19 Range/Units 16:37 20:34 POC Glucose (mg/dL) 236 H 119 H (75-99) mg/dL
[2019-05-25 12:18] LABS: Glucose,Whole Blood 109 mg/dL (75-99)
[2019-05-25] MEDS: DIAZEPAM 5 MG TAB PO SCH ×2 (12:34→21:52)
[2019-05-25] MEDS: FUROSEMIDE 80 MG TAB PO SCH ×2 (12:34→21:54)
[2019-05-25] MEDS: NIFEdipine XL 90 MG TAB.ER.24 PO SCH (12:34)
[2019-05-25] MEDS: hydrALAZINE HCL 50 MG TAB PO SCH ×3 (12:34→21:52)
[2019-05-25] MEDS: cloNIDine HCL 0.1 MG TAB PO SCH ×3 (12:34→21:54)
[2019-05-25] MEDS: LABETALOL 200 MG TAB PO SCH ×2 (12:35→21:54)
--- NOTE | 2019-05-25 15:31 | PN ---
PROGRESS NOTE Patient is seen for followup for end-stage renal disease. She was dialyzed daily for the last 3 days secondary to volume overload and hyperkalemia. Patient is seen on hemodialysis again today. She is doing fairly well. PHYSICAL EXAMINATION: On examination, blood pressure this morning was 145/75, heart rate 71 per minute. She is afebrile. Examination of the heart S1, S2. Examination of the lungs, decreased breath sounds at bases. Abdomen is soft, non-tender. Examination of the lower extremities shows edema 1+ bilaterally. LAUNCH OPERATOR exam grossly intact. LABS: Not available from today. Yesterday, potassium was at 5.5 mEq/L. Hemoglobin was 8.7. ASSESSMENT: 1. End-stage renal disease, on hemodialysis on a Thursday, , Thursday schedule. 2. Volume overload slowly improving. 3. Anemia with a history of rectal bleeding, bleeding which was mostly from hemorrhoids and constipation. However, GI consult has been ordered and patient will be having workup. 4. Hyperkalemia associated with end-stage renal disease, currently improved. 5. Anemia of chronic disease maintained on Aranesp. PLAN: Continue with Aranesp. Hemodialysis today with UF of about 3 L and repeat hemodialysis again in a.m. MMODL / IJN: [id number] /
[2019-05-25 17:01] LABS: Glucose,Whole Blood 196 mg/dL (75-99)
[2019-05-25 21:01] LABS: Glucose,Whole Blood 255 mg/dL (75-99)
[2019-05-25] MEDS: INSULIN DETEMIR (LEVEMIR) 100 UNIT/ML SYR SQ SCH (21:48)
[2019-05-25] MEDS: ATORVASTATIN 80 MG TAB PO SCH (21:52)
[2019-05-25] MEDS: CYCLOBENZAPRINE 5 MG TAB PO SCH (21:54)
[2019-05-25] MEDS: diphenhydrAMINE 25 MG CAP PO SCH (21:56)
[2019-05-26] MEDS: traMADol 50 MG TAB PO PRN ×2 (00:52→10:08)
[2019-05-26] MEDS: HYDROcodone/APAP 5-325MG 1 EACH TAB PO PRN ×2 (05:05→13:43)
[2019-05-26 06:13] LABS: Glucose,Whole Blood 101 mg/dL (75-99)
[2019-05-26] MEDS: INSULIN ASPART (NovoLOG) 100 UNIT/ML VIAL SQ SCH ×2 (06:16→12:17)
[2019-05-26] MEDS: SEVELAMER 800 MG TAB PO SCH ×2 (06:16→12:20)
[2019-05-26] MEDS: PANTOPRAZOLE 40 MG TABLET PO SCH (06:16)
--- NOTE | 2019-05-26 06:21 | DS ---
DISCHARGE SUMMARY Please add to discharge summary: Acute on chronic diastolic heart failure. MMODL / IJN: [id number] /
[2019-05-26 06:59] LABS: Anisocytosis Slight; Basophils % (A) 0 %; Eosinophils # (A) 0.1 k/uL (0-0.7); Eosinophils % (A) 2 %; HCT 26.3 % (34.0-46.0); HGB 8.6 gm/dL (11.4-16.0); Lymphocytes # (A) 0.4 k/uL (1.0-4.8); Lymphocytes % (A) 11 %; MCH 32.1 pg (25.0-35.0); MCHC 32.8 g/dL (31.0-37.0); MCV 97.9 fL (80.0-100.0); Macrocytosis Slight; Mean Platelet Volume 8.5; Monocytes # (A) 0.2 k/uL (0-1.0); Monocytes % (A) 5 %; Neutrophils % (A) 80 %; Platelet Count 102 k/uL (150-450); RBC 2.69 m/uL (3.80-5.40); RDW 17.9 % (11.5-15.5); WBC 3.8 k/uL (3.8-10.6)
[2019-05-26 07:03] LABS: Albumin 3.9 g/dL (3.5-5.0); Calcium 8.5 mg/dL (8.4-10.2); Total Bilirubin 0.9 mg/dL (0.2-1.3); Total Protein 6.2 g/dL (6.3-8.2)
[2019-05-26 07:13] LABS: Potassium 6.1 mmol/L (3.5-5.1)
[2019-05-26] MEDS: hydrALAZINE HCL 50 MG TAB PO SCH ×2 (08:48→16:17)
[2019-05-26] MEDS: DIAZEPAM 5 MG TAB PO SCH ×2 (08:48→10:05)
[2019-05-26] MEDS: ASPIRIN 81 MG PO SCH (08:48)
[2019-05-26] MEDS: FUROSEMIDE 80 MG TAB PO SCH (08:48)
[2019-05-26] MEDS: LIDOCAINE-PRILOCAINE 2.5-2.5% CREAM 5 GM TUBE TOPICAL SCH (08:48)
[2019-05-26] MEDS: NIFEdipine XL 90 MG TAB.ER.24 PO SCH (08:48)
[2019-05-26] MEDS: GABAPENTIN 100 MG CAP PO SCH ×2 (08:48→16:17)
[2019-05-26] MEDS: LABETALOL 200 MG TAB PO SCH (08:48)
[2019-05-26] MEDS: FOLIC ACID-VIT B COMPLEX-VIT C 1 CAP PO SCH (08:48)
[2019-05-26] MEDS: cloNIDine HCL 0.1 MG TAB PO SCH ×2 (08:48→16:17)
[2019-05-26] MEDS ORDERED: LIDOCAINE 1% INJ 10MG/ML (20 ML MDV) ONE (09:13)
[2019-05-26] MEDS ORDERED: PROPOFOL 10 MG/ML 20 ML VIAL IV ONE (09:13)
[2019-05-26] MEDS ORDERED: LACTATED RINGERS 1,000 ML IV ONE (09:20)
--- NOTE | 2019-05-26 09:29 | P.OP ---
Date of Procedure: 05/26/19 Preoperative Diagnosis: GI bleed Postoperative Diagnosis: Antral gastritis Procedure(s) Performed: EGD Anesthesia: MAC Surgeon: Garth Jain Pathology: other (Antrum) Condition: stable Disposition: PACU Description of Procedure: The patient's placed on the endoscopy table in the lateral position. She received IV sedation. The gastroscope placed oropharynx and passed in the esophagus into the stomach. Scope was then placed through the pylorus. The first and second portion of duodenum appeared normal. Scope was then brought back the antrum and this appeared mildly inflamed. Biopsies performed. The scope was then retroflexed and remainder of the stomach appeared normal. There was no significant hiatal hernia. The GE junction was at 40 cm. The distal esophagus appeared normal. The proximal esophagus appeared normal. Scope was withdrawn for patient. Next digital rectal exam was performed. There were internal and external hemorrhoids noted. The flexible colonoscope was then placed patient anus and passed with colon. Scope was placed into the level of the left colon however there was a large amount of liquid stool. The prep was entirely inadequate. The colonoscope could not be advanced to large amount liquid stool. At this point scope withdrawn. The remainder of the descending and sigmoid colon appeared normal. There is known to bleeding. The rectum appeared normal. Scope was withdrawn from the anus and internal and external hemorrhage noted. There is no evidence of any GI bleed. He was resumed that the patient's rectal bleeding is due to hemorrhoids.
[2019-05-26 10:09] LABS: Glucose,Whole Blood 66 mg/dL (75-99)
[2019-05-26 10:23] LABS: Glucose,Whole Blood 86 mg/dL (75-99)
[2019-05-26 11:35] LABS: Glucose,Whole Blood 90 mg/dL (75-99)
[2019-05-26 13:37] VITALS: RESP 20
--- NOTE | 2019-05-26 15:31 | P.DS ---
Providers Date of admission: 05/23/19 13:59 Expected date of discharge: 05/26/19 Attending physician: David Bragg Consults: 05/23/19 13:59 Consult Physician Urgent Consulting Provider: Rachael Orozco Consult Reason/Comments: Chronic renal failure, hyperkalemia Do you want consulting provider notified?: Yes 05/23/19 23:25 Consult Physician Routine Consulting Provider: Garth Jain Consult Reason/Comments: rectal bleeding Do you want consulting provider notified?: Yes [facility] [place] [facility] Course: Final Diagnoses: Rectal bleeding, status post EGD/colonoscopy reporting antral gastritis, and hemorrhoids Anemia of chronic kidney disease End-stage renal disease on hemodialysis Hyperkalemia secondary to the above Hospital course a 53-year-old female admitted with abdominal cramping, rectal bleeding, chronic kidney disease and multiple other medical issues. Evaluated by surgery. Underwent EGD and colonoscopy reporting antral gastritis and hemorrhoids. Patient will be discharged home in a stable condition with guarded prognosis pending clearance from surgery and nephrology. EXAM: GEN: Alert and oriented 3, no acute distress CV: Regular S1 and S2 LUNGS:CTA ABD: Soft, nontender, nondistended, positive bowel sounds NEURO: No focal deficits The impression and plan of care has been dictated as directed. : I performed a history and examination of this patient, discussed the same with the dictator. I agree with the dictator's note ,documented as a scribe. Any additional findings or plans will be noted. Patient Condition at Discharge: Stable Plan - Discharge Summary Discharge Rx Participant: No New Discharge Prescriptions: Continue Cyclobenzaprine [Flexeril] 5 mg PO HS Insulin Glargine [Lantus] 70 unit SQ HS cloNIDine HCL 0.3 mg PO TID Sevelamer [Renvela] 800 mg PO DAILY PRN PRN Reason: SNACKS Furosemide [Lasix] 80 mg PO BID Prochlorperazine [Compazine] 5 mg PO BID PRN PRN Reason: nausea Sevelamer [Renvela] 2,400 mg PO AC-TID INSULIN LISPRO (humaLOG) [humaLOG] See Protocol SQ AC-TID Gabapentin [Neurontin] 100 mg PO TID INSULIN LISPRO (humaLOG) [humaLOG] 18 unit SQ AC-TID traMADol HCL [Ultram] 50 mg PO Q4HR PRN PRN Reason: Pain Omeprazole 20 mg PO BID Lidocaine-Prilocaine Cream [Emla Cream 2.5%/2.5%] 1 applic TOPICAL TUTHSA rOPINIRole HCL [Requip] 1 mg PO TID HYDROcodone/APAP 5-325MG [[place] 5-325] 1 tab PO Q8H PRN PRN Reason: Pain Folic Acid-Vit B Complex-Vit C [Nephrocaps] 1 cap PO DAILY hydrALAZINE HCL [Apresoline] 100 mg PO TID Aspirin EC [Ecotrin Low Dose] 81 mg PO DAILY #30 tablet. Atorvastatin [Lipitor] 80 mg PO HS #30 tab NIFEdipine XL [Procardia XL] 90 mg PO DAILY #30 tab.er.24 Labetalol [Trandate] 400 mg PO BID #120 tab Diazepam [Valium] 5 mg PO BID diphenhydrAMINE HCL [Benadryl] 25 mg PO HS Promethazine 6.25MG/5Ml [Phenergan Syrup] 6.25 mg PO Q6H PRN PRN Reason: Cough predniSONE See Taper PO DIRECTED Albuterol Sulfate [Ventolin HFA] 2 puff INHALATION RT-Q6H PRN PRN Reason: Shortness Of Breath Discharge Medication List Cyclobenzaprine [Flexeril] 5 mg PO HS 09/14/15 [History] Insulin Glargine [Lantus] 70 unit SQ HS 04/18/16 [History] cloNIDine HCL 0.3 mg PO TID 12/16/16 [History] Sevelamer [Renvela] 800 mg PO DAILY PRN 08/21/17 [History] Furosemide [Lasix] 80 mg PO BID 10/22/17 [History] Prochlorperazine [Compazine] 5 mg PO BID PRN 10/26/17 [History] Sevelamer [Renvela] 2,400 mg PO AC-TID 03/13/18 [History] Gabapentin [Neurontin] 100 mg PO TID 05/17/18 [History] INSULIN LISPRO (humaLOG) [humaLOG] See Protocol SQ AC-TID 05/17/18 [History] INSULIN LISPRO (humaLOG) [humaLOG] 18 unit SQ AC-TID 07/12/18 [History] Omeprazole 20 mg PO BID 11/01/18 [History] traMADol HCL [Ultram] 50 mg PO Q4HR PRN 11/01/18 [History] Lidocaine-Prilocaine Cream [Emla Cream 2.5%/2.5%] 1 applic TOPICAL TUTHSA 11/21/18 [History] HYDROcodone/APAP 5-325MG [[place] 5-325] 1 tab PO Q8H PRN 12/01/18 [History] rOPINIRole HCL [Requip] 1 mg PO TID 12/01/18 [History] Folic Acid-Vit B Complex-Vit C [Nephrocaps] 1 cap PO DAILY 12/14/18 [History] hydrALAZINE HCL [Apresoline] 100 mg PO TID 12/14/18 [History] Aspirin EC [Ecotrin Low Dose] 81 mg PO DAILY #30 tablet.dr 12/17/18 [Rx] Atorvastatin [Lipitor] 80 mg PO HS #30 tab 12/17/18 [Rx] Labetalol [Trandate] 400 mg PO BID #120 tab 12/17/18 [Rx] NIFEdipine XL [Procardia XL] 90 mg PO DAILY #30 tab.er.24 12/17/18 [Rx] Diazepam [Valium] 5 mg PO BID 01/21/19 [History] Promethazine 6.25MG/5Ml [Phenergan Syrup] 6.25 mg PO Q6H PRN 05/15/19 [History] diphenhydrAMINE HCL [Benadryl] 25 mg PO HS 05/15/19 [History] Albuterol Sulfate [Ventolin HFA] 2 puff INHALATION RT-Q6H PRN 05/23/19 [History] predniSONE See Taper PO DIRECTED 05/23/19 [History] Follow up Appointment(s)/Referral(s): Rachael Orozco MD [STAFF PHYSICIAN] - 1 Week David Bragg MD [Primary Care Provider] - 3 Days Garth Jain MD [STAFF PHYSICIAN] - 1 Week Ambulatory/Diagnostic Orders: Complete Blood Count w/diff [LAB.AMB] Time Frame: 3 Days, Location: None Selected Activity/Diet/Wound Care/Special Instructions: Hemodialysis as per nephrology
--- NOTE | 2019-05-26 15:56 | PN ---
PROGRESS NOTE Patient is seen for followup for end-stage renal disease. She is currently seen on dialysis. The patient had about 3 liters of ultrafiltration yesterday. She is doing fairly well and has just returned from EGD, which was done by Dr. Jain. There was no evidence of any active GI bleed noted. PHYSICAL EXAMINATION: On examination today, blood pressure was 150/70, heart rate 65 per minute, patient is afebrile. HEART: S1 and S2. LUNGS: Bilateral breath sounds are heard. ABDOMEN: Soft, nontender. Examination of the lower extremities shows no evidence of edema. EXECUTIVE ACCOUNT MANAGER exam is grossly intact. LABS: Sodium 130, potassium 6.1, chloride 90, BUN 43, creatinine 5.28. Hemoglobin 8.6 g/dL. ASSESSMENT: 1. End-stage renal disease, on hemodialysis on a Thursday, , Thursday schedule. 2. Hyperkalemia, improved post dialysis with potassium staying high. The patient is maintained on low potassium diet. She seems to be complying. She is not on any other medications to induce hyperkalemia. There is no evidence of active GI bleed, as per EGD done this morning. 3. Severe anemia with no active bleeding noticed, status post packed RBC transfusion. 4. Hypertension. 5. Volume overload, currently improved. PLAN: UF about 3 liters today with hemodialysis. Continue with Aramollyp. MMODL / IJN: [id number] /
[2019-05-26 16:15] VITALS: BP 187/84; PULSE 72; TEMP 98.5
== END 2019-05-26 18:26 | disposition home or self-care (01) | DRG 291 ==
LOC: EC 11:30 → 3SCARD 13:59
PROVIDERS: ADMIT Family Medicine; ATTEND Family Medicine
PROC: 5A1D70Z Performance of Urinary Filtration, Intermittent, Less than 6 Hours Per Day (ICD-10-PCS; principal; 2019-05-24)
PROC: 0DJD8ZZ Inspection of Lower Intestinal Tract, Via Natural or Artificial Opening Endoscopic (ICD-10-PCS; 2019-05-26 08:50)
PROC: 0DB78ZX Excision of Stomach, Pylorus, Via Natural or Artificial Opening Endoscopic, Diagnostic (ICD-10-PCS; 2019-05-26 08:50)
DX: I13.2 Hypertensive heart and chronic kidney disease with heart failure and with stage 5 chronic kidney disease, or end stage renal disease (principal); I50.33 Acute on chronic diastolic (congestive) heart failure; N18.6 End stage renal disease; K62.5 Hemorrhage of anus and rectum; E87.1 Hypo-osmolality and hyponatremia; E87.5 Hyperkalemia; E78.5 Hyperlipidemia, unspecified; E11.22 Type 2 diabetes mellitus with diabetic chronic kidney disease; E11.36 Type 2 diabetes mellitus with diabetic cataract; H26.9 Unspecified cataract; E78.1 Pure hyperglyceridemia; K59.00 Constipation, unspecified; D63.1 Anemia in chronic kidney disease; E83.9 Disorder of mineral metabolism, unspecified; G89.29 Other chronic pain; K76.9 Liver disease, unspecified; E11.65 Type 2 diabetes mellitus with hyperglycemia; K29.70 Gastritis, unspecified, without bleeding; K64.9 Unspecified hemorrhoids; Z79.4 Long term (current) use of insulin; Z79.899 Other long term (current) drug therapy; Z79.82 Long term (current) use of aspirin; Z87.01 Personal history of pneumonia (recurrent); Z87.19 Personal history of other diseases of the digestive system; Z91.15 Patient's noncompliance with renal dialysis; Z87.440 Personal history of urinary (tract) infections; Z99.2 Dependence on renal dialysis; Z87.81 Personal history of (healed) traumatic fracture; Z98.890 Other specified postprocedural states; Z95.828 Presence of other vascular implants and grafts; Z86.010 Personal history of colon polyps; Z90.410 Acquired total absence of pancreas; Z88.1 Allergy status to other antibiotic agents; Z91.041 Radiographic dye allergy status; Z81.1 Family history of alcohol abuse and dependence; Z80.9 Family history of malignant neoplasm, unspecified; Z82.49 Family history of ischemic heart disease and other diseases of the circulatory system
CPT/HCPCS: 36415; 43239; 45378; 80053; 84132; 85025; 85610; 85730; 88305; 90935; 94640; 96374; 99285

== ENCOUNTER 2019-06-03 20:34 | Emergency (ER) | payer OTHER ==
[2019-06-03 20:56] VITALS: BP 183/76; PULSE 93; RESP 18; TEMP 98.6
[2019-06-03] MEDS ORDERED: GELATIN SPONGE,ABSORB (SMALL) 1 EACH SPONGE TOPICAL STA (21:12)
[2019-06-03] MEDS ORDERED: GELATIN SPONGE,ABSORB (LARGE) 1 EACH SPONGE TOPICAL STA (21:12)
--- NOTE | 2019-06-03 21:13 | ED ---
Recheck HPI - General Chief Complaint: Recheck/Abnormal Lab/Rx Stated Complaint: Dialysis site bleeding from today Time Seen by Provider: 06/03/19 21:00 Source: patient, RN notes reviewed, old records reviewed Mode of arrival: ambulatory Limitations: no limitations - History of Present Illness Initial Comments: This is a 53-year-old female here for evaluation of bleeding from dialysis graft. Patient has recently had dialysis as her normal scheduled date. She has been bleeding from dialysis graft minor bleeding no lightheaded not no lightheadedness dizziness or weakness, patient is not on any blood thinning medications MD Complaint: wound re-check (recheck of dialysis graft site) -: days(s) Symptoms Since Prior Visit: no new symptoms Associated Symptoms: none - Related Data Home Medications Medication Instructions Recorded Confirmed Cyclobenzaprine [Flexeril] 5 mg PO HS 09/14/15 05/23/19 Insulin Glargine [Lantus] 70 unit SQ HS 04/18/16 05/23/19 cloNIDine HCL 0.3 mg PO TID 12/16/16 05/23/19 Sevelamer [Renvela] 800 mg PO DAILY PRN 08/21/17 05/23/19 Furosemide [Lasix] 80 mg PO BID 10/22/17 05/23/19 Prochlorperazine [Compazine] 5 mg PO BID PRN 10/26/17 05/23/19 Sevelamer [Renvela] 2,400 mg PO AC-TID 03/13/18 05/23/19 Gabapentin [Neurontin] 100 mg PO TID 05/17/18 05/23/19 INSULIN LISPRO (humaLOG) [humaLOG] See Protocol SQ AC-TID 05/17/18 05/23/19 INSULIN LISPRO (humaLOG) [humaLOG] 18 unit SQ AC-TID 07/12/18 05/23/19 Omeprazole 20 mg PO BID 11/01/18 05/23/19 traMADol HCL [Ultram] 50 mg PO Q4HR PRN 11/01/18 05/23/19 Lidocaine-Prilocaine Cream [Emla 1 applic TOPICAL TUTHSA 11/21/18 05/23/19 Cream 2.5%/2.5%] HYDROcodone/APAP 5-325MG [[place] 1 tab PO Q8H PRN 12/01/18 05/23/19 5-325] rOPINIRole HCL [Requip] 1 mg PO TID 12/01/18 05/23/19 Folic Acid-Vit B Complex-Vit C 1 cap PO DAILY 12/14/18 05/23/19 [Nephrocaps] hydrALAZINE HCL [Apresoline] 100 mg PO TID 12/14/18 05/23/19 Diazepam [Valium] 5 mg PO BID 01/21/19 05/23/19 Promethazine 6.25MG/5Ml [Phenergan 6.25 mg PO Q6H PRN 05/15/19 05/23/19 Syrup] diphenhydrAMINE HCL [Benadryl] 25 mg PO HS 05/15/19 05/23/19 Albuterol Sulfate [Ventolin HFA] 2 puff INHALATION RT-Q6H PRN 05/23/19 05/23/19 predniSONE See Taper PO DIRECTED 05/23/19 05/23/19 Previous Rx's Medication Instructions Recorded Aspirin EC [Ecotrin Low Dose] 81 mg PO DAILY #30 tablet.dr 12/17/18 Atorvastatin [Lipitor] 80 mg PO HS #30 tab 12/17/18 Labetalol [Trandate] 400 mg PO BID #120 tab 12/17/18 NIFEdipine XL [Procardia XL] 90 mg PO DAILY #30 tab.er.24 12/17/18 Allergies Allergy/AdvReac Type Severity Reaction Status Date / Time ciprofloxacin [From Cipro] AdvReac AFFECTED Verified 06/03/19 20:56 EYESIGHT ciprofloxacin HCl AdvReac AFFECTED Verified 06/03/19 20:56 [From Cipro] EYESIGHT Iodinated Contrast Media AdvReac RENAL Verified 06/03/19 20:56 FAILURE Review of Systems ROS Statement: Those systems with pertinent positive or pertinent negative responses have been documented in the HPI. ROS Other: All systems not noted in ROS Statement are negative. 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 hemodialysis for acute kidney injury 2 months in 2009 after pancreatic OR, 11/2015 diagnosed w/ chronic kidney disease-hemodialysis -last hemodialysis 06/02/19, IDDM type II, past DKA, pt states she has dry heaves day after dialysis, UTI, chronic anemia, frequent body cramping, occasional low back pain, carter's palsy x2, past L leg fx, possible liver disease-recent liver bx-results unknown per pt. History of Any Multi-Drug Resistant Organisms: None Reported Past Surgical History: Orthopedic Surgery, Uterine Ablation Additional Past Surgical History / Comment(s): Recent liver biopsy done at [place] but pt states they have never contacted her with the results, 08/26/17 colonoscopy with polypectomy/bx, pancreatic resection at [facility] 2009, bone marrow biopsies X2-last one 05/19/16,. dialysis chest port x 2 with removals, Left arm shunt placement for dialysis - December 2015 and a revision done with shunt. Past Anesthesia/Blood Transfusion Reactions: No Reported Reaction Additional Past Anesthesia/Blood Transfusion Reaction / Comment(s): Pt has received blood transfusions without reaction. Past Psychological History: No Psychological Hx Reported Smoking Status: Never smoker Past Alcohol Use History: None Reported Past Drug Use History: None Reported - Past Family History Brother(s) Family Medical History: No Reported History Mother Family Medical History: Cancer Additional Family Medical History / Comment(s): . Father Family Medical History: Hypertension Additional Family Medical History / Comment(s): alcoholism General Exam Limitations: no limitations General appearance: alert, in no apparent distress Head exam: Present: atraumatic, normocephalic, normal inspection Eye exam: Present: normal appearance, PERRL, EOMI. Absent: scleral icterus, conjunctival injection, periorbital swelling ENT exam: Present: normal exam, mucous membranes moist Neck exam: Present: normal inspection. Absent: tenderness, meningismus, lymphadenopathy Respiratory exam: Present: normal lung sounds bilaterally. Absent: respiratory distress, wheezes, rales, rhonchi, stridor Cardiovascular Exam: Present: regular rate, normal rhythm, normal heart sounds. Absent: systolic murmur, diastolic murmur, rubs, gallop, clicks GI/Abdominal exam: Present: soft, normal bowel sounds. Absent: distended, tenderness, guarding, rebound, rigid Extremities exam: Present: normal inspection, full ROM, normal capillary refill. Absent: tenderness, pedal edema, joint swelling, calf tenderness Back exam: Present: normal inspection Neurological exam: Present: alert, oriented X3, CN II-XII intact Psychiatric exam: Present: normal affect, normal mood Skin exam: Present: warm, dry, intact, normal color. Absent: rash Course Vital Signs 06/03/19 20:52 Temperature 98.6 F Pulse Rate 93 Respiratory 18 Rate Blood Pressure 183/76 O2 Sat by Pulse 96 Oximetry - Reevaluation(s) Reevaluation #1: Medical record is reviewed Bleeding is stopped here in the ER Medical Decision Making - Medical Decision Making 53 female DF for evaluation, patient is safe for evaluation of bleeding from dialysis site, symptoms resolved here in the ER bandages placed the patient can be discharged home Disposition Clinical Impression: Bleeding from wound Narrative: Bleeding From Dialysis Site, resolved Disposition: HOME SELF-CARE Condition: Good Instructions (If sedation given, give patient instructions): Acute Wound Care (ED), Acute Wounds (ED) Is patient prescribed a controlled substance at d/c from ED?: No Referrals: David Bragg MD [Primary Care Provider] - 1-2 days
== END 2019-06-03 22:15 | disposition home or self-care (01) ==
LOC: EC 20:34
DX: L76.22 Postprocedural hemorrhage of skin and subcutaneous tissue following other procedure (principal); I13.0 Hypertensive heart and chronic kidney disease with heart failure and stage 1 through stage 4 chronic kidney disease, or unspecified chronic kidney disease; I50.9 Heart failure, unspecified; N18.9 Chronic kidney disease, unspecified; E11.22 Type 2 diabetes mellitus with diabetic chronic kidney disease; D63.1 Anemia in chronic kidney disease; Z88.1 Allergy status to other antibiotic agents; Z91.041 Radiographic dye allergy status; Z79.52 Long term (current) use of systemic steroids; Z79.899 Other long term (current) drug therapy; Z79.4 Long term (current) use of insulin; Z87.01 Personal history of pneumonia (recurrent)
CPT/HCPCS: 99284

== ENCOUNTER → 2019-10-06 | Outpatient (CLI) | payer OTHER | END | disposition home or self-care (01) | LOC: LABWHC1 13:18 | PROVIDERS: ATTEND Internal Medicine | DX: N18.9 Chronic kidney disease, unspecified (principal); D63.1 Anemia in chronic kidney disease | CPT/HCPCS: 86850; 86900; 86901; 86920 ==

== ENCOUNTER 2019-11-08 15:28 | Emergency (ER) | payer OTHER ==
[2019-11-08 15:34] VITALS: BP 197/72; PULSE 75; RESP 18; TEMP 98.3
--- NOTE | 2019-11-08 16:49 | XR ---
EXAMINATION TYPE: XR ankle complete RT DATE OF EXAM: 11/08/2019 COMPARISON: NONE HISTORY: Pain TECHNIQUE: 3 views FINDINGS: Ankle mortise is anatomic. I see no fracture nor dislocation. There is mild soft tissue swe lling around the ankle joint. IMPRESSION: Soft tissue swelling. No fracture seen.
--- NOTE | 2019-11-08 16:49 | XR ---
EXAMINATION TYPE: XR foot complete RT DATE OF EXAM: 11/08/2019 COMPARISON: NONE HISTORY: Pain TECHNIQUE: 3 views FINDINGS: I see no fracture nor dislocation. Metatarsals appear intact. Joint spaces are fairly talia l. There is vascular calcification. There are no erosions. IMPRESSION: No acute abnormality of the right foot.
[2019-11-08] MEDS ORDERED: MORPHINE SULFATE 2 MG/ML SYRINGE IM STA (17:24)
--- NOTE | 2019-11-08 17:25 | ED ---
Fall HPI - General Chief Complaint: Fall Stated Complaint: foot pain Source: patient Mode of arrival: ambulatory - History of Present Illness Initial Comments: 54-year-old female presented for chief complaint of right foot pain x 1 day. Patient states she tripped in the garden yesterday. Denies head injury injury to neck, chest, abdomen. Patient states that he hit her right foot. Near the ankle/great toe. Patient denies lateral foot pain. Denies swelling, bruising. Able to weight bear and ambulate when pain persisted this evening she decided to come to the ER to r/o a fracture. Patient denies any other areas of injury. Denies numbness, tingling loss of sensation, coolness or pallor of the extremity. Patient has no additional complaints. - Related Data Home Medications Medication Instructions Recorded Confirmed Cyclobenzaprine [Flexeril] 5 mg PO HS 09/14/15 11/08/19 cloNIDine HCL 0.3 mg PO TID 12/16/16 11/08/19 Sevelamer [Renvela] 800 mg PO DAILY PRN 08/21/17 11/08/19 Furosemide [Lasix] 80 mg PO BID 10/22/17 11/08/19 Prochlorperazine [Compazine] 5 mg PO BID 10/26/17 11/08/19 Sevelamer [Renvela] 2,400 mg PO AC-TID 03/13/18 11/08/19 Gabapentin [Neurontin] 100 mg PO TID 05/17/18 11/08/19 INSULIN LISPRO (humaLOG) [humaLOG] 18 unit SQ AC-TID 07/12/18 11/08/19 Omeprazole 20 mg PO BID 11/01/18 11/08/19 Lidocaine-Prilocaine Cream [Emla 1 applic TOPICAL TUTHSA 11/21/18 11/08/19 Cream 2.5%/2.5%] rOPINIRole HCL [Requip] 1 mg PO TID 12/01/18 11/08/19 hydrALAZINE HCL [Apresoline] 100 mg PO TID 12/14/18 11/08/19 Diazepam [Valium] 5 mg PO BID 01/21/19 11/08/19 Albuterol Sulfate [Ventolin HFA] 1 - 2 puff INHALATION RT-BID 05/23/19 11/08/19 Ascorbic Acid [Vitamin C] 500 mg PO DAILY 11/08/19 11/08/19 Atorvastatin [Lipitor] 40 mg PO HS 11/08/19 11/08/19 HYDROcodone/APAP 7.5-325MG [[place] 1 tab PO TID 11/08/19 11/08/19 7.5-325] INSULIN LISPRO (humaLOG) [humaLOG] See Protocol SQ ACHS 11/08/19 11/08/19 Montelukast [Singulair] 10 mg PO DAILY 11/08/19 11/08/19 Olopatadine HCl [[place]] 1 drop BOTH EYES BID 11/08/19 11/08/19 Sodium Polystyrene Sulfonate 15 gm PO SUMOWEFR 11/08/19 11/08/19 [Kayexalate] Previous Rx's Medication Instructions Recorded Aspirin EC [Ecotrin Low Dose] 81 mg PO DAILY #30 tablet. 12/17/18 Labetalol [Trandate] 400 mg PO BID #120 tab 12/17/18 NIFEdipine XL [Procardia XL] 90 mg PO DAILY #30 tab.er.24 12/17/18 Allergies Allergy/AdvReac Type Severity Reaction Status Date / Time ciprofloxacin [From Cipro] AdvReac AFFECTED Verified 11/08/19 18:18 EYESIGHT ciprofloxacin HCl AdvReac AFFECTED Verified 11/08/19 18:18 [From Cipro] EYESIGHT Iodinated Contrast Media AdvReac RENAL Verified 11/08/19 18:18 FAILURE Review of Systems ROS Statement: Those systems with pertinent positive or pertinent negative responses have been documented in the HPI. ROS Other: All systems not noted in ROS Statement are negative. 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 hemodialysis for acute kidney injury 2 months in 2009 after pancreatic OR, 11/2015 diagnosed w/ chronic kidney disease-hemodialysis /-last hemodialysis 06/02/19, IDDM type II, past DKA, pt states she has dry heaves day after dialysis, UTI, chronic anemia, frequent body cramping, occasional low back pain, carter's palsy x2, past L leg fx, possible liver disease-recent liver bx-results unknown per pt. History of Any Multi-Drug Resistant Organisms: None Reported Past Surgical History: Orthopedic Surgery, Uterine Ablation Additional Past Surgical History / Comment(s): Recent liver biopsy done at [place] but pt states they have never contacted her with the results, 08/26/17 colonoscopy with polypectomy/bx, pancreatic resection at [facility] 2009, bone marrow biopsies X2-last one 05/19/16,. dialysis chest port x 2 with removals, Left arm shunt placement for dialysis - December 2015 and a revision done with shunt. Left forearm Vein Revision - October 2019 Past Anesthesia/Blood Transfusion Reactions: No Reported Reaction Additional Past Anesthesia/Blood Transfusion Reaction / Comment(s): Pt has received blood transfusions without reaction. Past Psychological History: No Psychological Hx Reported Smoking Status: Never smoker Past Alcohol Use History: None Reported Past Drug Use History: None Reported - Past Family History Brother(s) Family Medical History: No Reported History Mother Family Medical History: Cancer Additional Family Medical History / Comment(s): . Father Family Medical History: Hypertension Additional Family Medical History / Comment(s): alcoholism General Exam - General Exam Comments Initial Comments: General: The patient is awake and alert, in no distress, and does not appear acutely ill. Eye: +3 mm pupils are equal, round and reactive to light, extra-ocular movements are intact. No nystagmus. There is normal conjunctiva bilaterally. No signs of icterus. . Cardiovascular: There is a regular rate and rhythm. No murmur, rub or gallop is appreciated. Respiratory: Lungs are clear to auscultation, respirations are non-labored, breath sounds are equal. No wheezes, stridor, rales, or rhonchi. Gastrointestinal: Soft, non-distended, non-tender abdomen without masses or organomegaly noted. There is no rebound or guarding present. Musculoskeletal: No swelling bruising noted of the feet bilaterally. Patient has tenderness to palpation of the proximal left medial aspect of the right foot. No point localized tenderness over the fourth and fifth metatarsal of the right foot. Normal ROM, no tenderness of ankles, feet. Strength 5/5 of the ankles/feet. Sensation intact of the foot proximal and distal. Radial and DP p ulses equal bilaterally 2+. Neurological: A&O x 3. CN II-XII intact grossly, There are no obvious motor or sensory deficits. Coordination appears grossly intact. Speech is normal. Skin: Skin is warm and dry and no rashes or lesions are noted. Psychiatric: Cooperative, appropriate mood & affect, normal judgment. Limitations: no limitations Course Vital Signs 11/08/19 15:30 Temperature 98.3 F Pulse Rate 75 Respiratory 18 Rate Blood Pressure 197/72 O2 Sat by Pulse 98 Oximetry Medical Decision Making - Medical Decision Making 54yo female presenting today for cc of right foot pain after mechanical fall. Denies any other areas of injury. Foot XR (-). Patient able to weight bear but with pain. Patient neuro-vascular intact. Recommended crutches, orthopedic f/u if symptoms persistent. No obvious fracture. Patient agreeable to care plan and discharge. Disposition Clinical Impression: Right foot pain, Fall Disposition: HOME SELF-CARE Condition: Good Instructions (If sedation given, give patient instructions): Fall Prevention (ED) Additional Instructions: Please use medication as discussed. Please follow-up with family doctor in the next 2 days, use crutches for ambulation, do no weight bear on right foot. Fo llow-up with orthopedic surgery in next 2-4 days. Please return to emergency room if the symptoms increase or worsen or for any other concerns. Is patient prescribed a controlled substance at d/c from ED?: No Referrals: David Bragg MD [Primary Care Provider] - 1-2 days Elieser Taylor MD [Medical Doctor] - 1-2 days Time of Disposition: 17:24
== END 2019-11-08 17:40 | disposition home or self-care (01) ==
LOC: EC 15:28
DX: M25.571 Pain in right ankle and joints of right foot (principal); E78.5 Hyperlipidemia, unspecified; E11.22 Type 2 diabetes mellitus with diabetic chronic kidney disease; I13.2 Hypertensive heart and chronic kidney disease with heart failure and with stage 5 chronic kidney disease, or end stage renal disease; I50.9 Heart failure, unspecified; N18.6 End stage renal disease; W01.0XXA Fall on same level from slipping, tripping and stumbling without subsequent striking against object, initial encounter; Y93.H2 Activity, gardening and landscaping; Z79.4 Long term (current) use of insulin; Z79.899 Other long term (current) drug therapy; Z88.1 Allergy status to other antibiotic agents; Z91.041 Radiographic dye allergy status; Z99.2 Dependence on renal dialysis
CPT/HCPCS: 73610; 73630; 99283; 96372; J2270

== ENCOUNTER 2019-12-02 00:56 | Inpatient (IN) | payer OTHER ==
[2019-12-02] MEDS ORDERED: ACETAMINOPHEN TAB 325 MG TAB PO STA (01:15)
--- NOTE | 2019-12-02 01:31 | ED ---
Weakness HPI - General Source: patient Mode of arrival: ambulatory Limitations: no limitations - History of Present Illness MD Complaint: generalized weakness Onset/Timin -: days(s) Location: generalized Severity scale (1-10): 0 Consistency: constant Improves with: none Worsens with: none Associated Symptoms: denies other symptoms <Huy Levy - Last Filed: 12/02/19 07:00> <Jeanette Hooper - Last Filed: 12/03/19 22:07> - General Chief complaint: Weakness Stated complaint: Lightheaded Time Seen by Provider: 12/02/19 01:14 - History of Present Illness Initial comments: This patient is a 54-year-old woman with history of end-stage renal disease on hemodialysis who presents with complaint that she is not feeling well, including generalized weakness and fatigue. Patient does state that her last dialysis was in the morning. She states that following that she was feeling progressively more weak and fatigued. She denies any focal weakness. On arrival here, the patient reported to have fever she was not aware of this at home. She has had occasional cough, states this is nonproductive. Denies chest pain, dyspnea, hemoptysis. No leg pain or swelling. (Huy Levy) - Related Data Home Medications Medication Instructions Recorded Confirmed Cyclobenzaprine [Flexeril] 5 mg PO HS 09/14/15 12/02/19 cloNIDine HCL 0.3 mg PO TID 12/16/16 12/02/19 Sevelamer [Renvela] 800 mg PO DAILY PRN 08/21/17 12/02/19 Furosemide [Lasix] 80 mg PO BID 10/22/17 12/02/19 Prochlorperazine [Compazine] 5 mg PO BID PRN 10/26/17 12/02/19 Sevelamer [Renvela] 2,400 mg PO AC-TID 03/13/18 12/02/19 Gabapentin [Neurontin] 100 mg PO TID 05/17/18 12/02/19 INSULIN LISPRO (humaLOG) [humaLOG] 18 unit SQ AC-TID 07/12/18 12/02/19 Omeprazole 20 mg PO BID 11/01/18 12/02/19 Lidocaine-Prilocaine Cream [Emla 1 applic TOPICAL TUTHSA 11/21/18 12/02/19 Cream 2.5%/2.5%] rOPINIRole HCL [Requip] 1 mg PO TID 12/01/18 12/02/19 hydrALAZINE HCL [Apresoline] 100 mg PO TID 12/14/18 12/02/19 diazePAM [Valium] 5 mg PO BID PRN 01/21/19 12/02/19 Albuterol Sulfate [Ventolin HFA] 1 - 2 puff INHALATION RT-BID 05/23/19 12/02/19 Ascorbic Acid [Vitamin C] 500 mg PO DAILY 11/08/19 12/02/19 Atorvastatin [Lipitor] 40 mg PO HS 11/08/19 12/02/19 HYDROcodone/APAP 7.5-325MG [[place] 1 tab PO TID 11/08/19 12/02/19 7.5-325] INSULIN LISPRO (humaLOG) [humaLOG] See Protocol SQ ACHS 11/08/19 12/02/19 Montelukast [Singulair] 10 mg PO DAILY 11/08/19 12/02/19 Olopatadine HCl [Pataday] 1 - 2 drops BOTH EYES BID 11/08/19 12/02/19 Sodium Polystyrene Sulfonate 15 gm PO SUMOWEFR 11/08/19 12/02/19 [Kayexalate] Insulin Glargine,Hum.rec.anlog 20 unit SQ BID 12/02/19 12/02/19 [Basaglar Kwikpen U-100] Previous Rx's Medication Instructions Recorded Aspirin EC [Ecotrin Low Dose] 81 mg PO DAILY #30 tablet. 12/17/18 Labetalol [Trandate] 400 mg PO BID #120 tab 12/17/18 NIFEdipine XL [Procardia XL] 90 mg PO DAILY #30 tab.er.24 12/17/18 Allergies Allergy/AdvReac Type Severity Reaction Status Date / Time ciprofloxacin [From Cipro] AdvReac AFFECTED Verified 12/02/19 08:10 EYESIGHT ciprofloxacin HCl AdvReac AFFECTED Verified 12/02/19 08:10 [From Cipro] EYESIGHT Iodinated Contrast Media AdvReac RENAL Verified 12/02/19 08:10 FAILURE Review of Systems ROS Other: All systems not noted in ROS Statement are negative. Constitutional: Reports: weakness. Denies: fever Respiratory: Reports: cough. Denies: dyspnea, wheezes, hemoptysis Cardiovascular: Denies: chest pain, palpitations, orthopnea, edema, syncope Gastrointestinal: Denies: abdominal pain, vomiting, diarrhea Musculoskeletal: Denies: back pain Skin: Denies: rash Neurological: Denies: headache, weakness, numbness <Huy Levy - Last Filed: 12/02/19 07:00> ROS Other: All systems not noted in ROS Statement are negative. <Jeanette Hooper - Last Filed: 12/03/19 22:07> ROS Statement: Those systems with pertinent positive or pertinent negative responses have been documented in the HPI. 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 hemodialysis for acute kidney injury 2 months in 2009 after pancreatic OR, 11/2015 diagnosed w/ chronic kidney disease-hemodialysis /-last hemodialysis 06/02/19, IDDM type II, past DKA, pt states she has dry heaves day after dialysis, UTI, chronic anemia, frequent body cramping, occasional low back pain, carter's palsy x2, past L leg fx, possible liver disease-recent liver bx-results unknown per pt. History of Any Multi-Drug Resistant Organisms: None Reported Past Surgical History: Orthopedic Surgery, Uterine Ablation Additional Past Surgical History / Comment(s): Recent liver biopsy done at [facility] but pt states they have never contacted her with the results, 08/26/17 colonoscopy with polypectomy/bx, pancreatic resection at [facility] 2009, bone marrow biopsies X2-last one 05/19/16,. dialysis chest port x 2 with removals, Left arm shunt placement for dialysis - December 2015 and a revision done with shunt. Left forearm Vein Revision - October 2019 Past Anesthesia/Blood Transfusion Reactions: No Reported Reaction Additional Past Anesthesia/Blood Transfusion Reaction / Comment(s): Pt has received blood transfusions without reaction. Past Psychological History: No Psychological Hx Reported Past Alcohol Use History: None Reported Past Drug Use History: None Reported - Past Family History Brother(s) Family Medical History: No Reported History Mother Family Medical History: Cancer Additional Family Medical History / Comment(s): . Father Family Medical History: Hypertension Additional Family Medical History / Comment(s): alcoholism <Huy Levy - Last Filed: 12/02/19 07:00> General Exam Limitations: no limitations General appearance: alert, in no apparent distress Head exam: Present: atraumatic, normocephalic Eye exam: Present: normal appearance. Absent: scleral icterus, conjunctival injection Neck exam: Present: normal inspection Respiratory exam: Present: normal lung sounds bilaterally. Absent: respiratory distress, wheezes, rales, rhonchi, stridor Cardiovascular Exam: Present: regular rate, normal rhythm, normal heart sounds. Absent: systolic murmur, diastolic murmur, rubs, gallop GI/Abdominal exam: Present: soft. Absent: distended, tenderness, guarding, rebound, rigid, mass Extremities exam: Present: normal inspection, normal capillary refill. Absent: pedal edema, calf tenderness Back exam: Present: normal inspection. Absent: CVA tenderness (R), CVA tenderness (L) Neurological exam: Present: alert Skin exam: Present: warm, dry, intact, normal color. Absent: rash <Huy Levy - Last Filed: 12/02/19 07:00> Course Vital Signs 12/02/19 12/02/19 12/02/19 01:03 02:57 05:00 Temperature 103.2 F H 102.6 F H 100.3 F H Pulse Rate 96 96 88 Pulse Rate [ Pulse Oximetery ] Respiratory 18 18 18 Rate Blood Pressure 202/70 185/68 148/67 Blood Pressure [Right Arm] O2 Sat by Pulse 92 L 96 96 Oximetry 12/02/19 12/02/19 12/02/19 06:30 07:40 13:00 Temperature 100 F H 99.8 F H 98.4 F Pulse Rate 87 Pulse Rate [ 86 74 Pulse Oximetery ] Respiratory 16 18 16 Rate Blood Pressure 162/58 Blood Pressure 133/66 119/59 [Right Arm] O2 Sat by Pulse 97 96 92 L Oximetry EKG Findings - EKG Comments: EKG Findings:: Repeat EKG done at 7:10 AM demonstrates a normal sinus rhythm with ventricular rate of 87. Interval 146. QRS 100. QTC 447. Incomplete right bundle branch block. No acute ST segment elevations or depressions. EKG compared to previous and is similar in morphology <Jeanette Hooper - Last Filed: 12/03/19 22:07> Medical Decision Making - Lab Data Result diagrams: 12/02/19 01:57 12/02/19 01:57 <Huy Levy - Last Filed: 12/02/19 07:00> - Lab Data Result diagrams: 12/03/19 06:54 12/03/19 06:54 <Jeanette Hooper - Last Filed: 12/03/19 22:07> - Medical Decision Making Patient's 54-year-old woman who is presenting to be evaluated for generalized weakness and fatigue. Patient found to have fever. Initial workup is not revealing source of patient's fever. She will be admitted pending results of cultures and for infectious disease consultation. Sepsis bolus is held given that patient is on hemodialysis and patient is not having any hypotension and the lactic acid result is normal. In addition, cardiology consultation, as patient does have a mild elevation in troponin, although suspect that this is due to patients kidney failure compounded by infection. (Huy Levy) I entered the patients chart as an EKG was performed on the patient after Dr. Levy had left for the day. EKG does not demonstrate any ST segment changes. Troponin remains stable. Patient being taken to floor. (Jeanette Hooper) - Lab Data Lab Results 12/02/19 12/02/19 12/02/19 Range/Units 01:57 01:57 01:57 WBC 4.5 (3.8-10.6) k/uL RBC 2.43 L (3.80-5.40) m/uL Hgb 8.1 L (11.4-16.0) gm/dL Hct 23.6 L (34.0-46.0) % MCV 96.9 (80.0-100.0) fL MCH 33.3 (25.0-35.0) pg MCHC 34.4 (31.0-37.0) g/dL RDW 17.6 H (11.5-15.5) % Plt Count 53 L (150-450) k/uL Neutrophils % 87 % Lymphocytes % 3 % Monocytes % 8 % Eosinophils % 1 % Basophils % 0 % Neutrophils # 3.9 (1.3-7.7) k/uL Lymphocytes # 0.1 L (1.0-4.8) k/uL Monocytes # 0.3 (0-1.0) k/uL Eosinophils # 0.0 (0-0.7) k/uL Basophils # 0.0 (0-0.2) k/uL Manual Slide Review Performed Polychromasia Present Anisocytosis Slight Anisocytosis (manual) Present Macrocytosis Slight PT 11.6 (9.0-12.0) sec INR 1.1 (<1.2) APTT 25.8 (22.0-30.0) sec Sodium 127 L (137-145) mmol/L Potassium 3.8 (3.5-5.1) mmol/L Chloride 85 L (98-107) mmol/L Carbon Dioxide 25 (22-30) mmol/L Anion Gap 17 mmol/L BUN 53 H (7-17) mg/dL Creatinine 6.09 H (0.52-1.04) mg/dL Est GFR (CKD-EPI)AfAm 8 (>60 ml/min/1.73 sqM) Est GFR (CKD-EPI)NonAf 7 (>60 ml/min/1.73 sqM) Glucose 246 H (74-99) mg/dL Plasma Lactic Acid Micha (0.7-2.0) mmol/L Calcium 8.2 L (8.4-10.2) mg/dL Ferritin (10.0-291.0) ng/mL Total Bilirubin 1.1 (0.2-1.3) mg/dL AST 75 H (14-36) U/L ALT 49 H (4-34) U/L Alkaline Phosphatase 164 H (38-126) U/L Lactate Dehydrogenase (313-618) U/L Troponin I (0.000-0.034) ng/mL C-Reactive Protein (<10.0) mg/L Total Protein 6.1 L (6.3-8.2) g/dL Albumin 3.9 (3.5-5.0) g/dL Procalcitonin (0.02-0.09) ng/mL Urine Color Urine Appearance (Clear) Urine pH (5.0-8.0) Ur Specific [place] (1.001-1.035) Urine Protein (Negative) Urine Glucose (UA) (Negative) Urine Ketones (Negative) Urine Blood (Negative) Urine Nitrite (Negative) Urine Bilirubin (Negative) Urine Urobilinogen (<2.0) mg/dL Ur Leukocyte Esterase (Negative) Urine RBC (0-5) /hpf Urine WBC (0-5) /hpf Urine WBC Clumps (None) /hpf Ur Squamous Epith Cells (0-4) /hpf Amorphous Sediment (None) /hpf Urine Bacteria (None) /hpf Urine Mucus (None) /hpf 12/02/19 12/02/19 12/02/19 Range/Units 01:57 01:57 01:57 WBC (3.8-10.6) k/uL RBC (3.80-5.40) m/uL Hgb (11.4-16.0) gm/dL Hct (34.0-46.0) % MCV (80.0-100.0) fL MCH (25.0-35.0) pg MCHC (31.0-37.0) g/dL RDW (11.5-15.5) % Plt Count (150-450) k/uL Neutrophils % % Lymphocytes % % Monocytes % % Eosinophils % % Basophils % % Neutrophils # (1.3-7.7) k/uL Lymphocytes # (1.0-4.8) k/uL Monocytes # (0-1.0) k/uL Eosinophils # (0-0.7) k/uL Basophils # (0-0.2) k/uL Manual Slide Review Polychromasia Anisocytosis Anisocytosis (manual) Macrocytosis PT (9.0-12.0) sec INR (<1.2) APTT (22.0-30.0) sec Sodium (137-145) mmol/L Potassium (3.5-5.1) mmol/L Chloride (98-107) mmol/L Carbon Dioxide (22-30) mmol/L Anion Gap mmol/L BUN (7-17) mg/dL Creatinine (0.52-1.04) mg/dL Est GFR (CKD-EPI)AfAm (>60 ml/min/1.73 sqM) Est GFR (CKD-EPI)NonAf (>60 ml/min/1.73 sqM) Glucose (74-99) mg/dL Plasma Lactic Acid Micha 1.0 (0.7-2.0) mmol/L Calcium (8.4-10.2) mg/dL Ferritin 4820.2 H (10.0-291.0) ng/mL Total Bilirubin (0.2-1.3) mg/dL AST (14-36) U/L ALT (4-34) U/L Alkaline Phosphatase (38-126) U/L Lactate Dehydrogenase 817 H (313-618) U/L Troponin I 0.201 H* (0.000-0.034) ng/mL C-Reactive Protein 88.6 H (<10.0) mg/L Total Protein (6.3-8.2) g/dL Albumin (3.5-5.0) g/dL Procalcitonin (0.02-0.09) ng/mL Urine Color Urine Appearance (Clear) Urine pH (5.0-8.0) Ur Specific [place] (1.001-1.035) Urine Protein (Negative) Urine Glucose (UA) (Negative) Urine Ketones (Negative) Urine Blood (Negative) Urine Nitrite (Negative) Urine Bilirubin (Negative) Urine Urobilinogen (<2.0) mg/dL Ur Leukocyte Esterase (Negative) Urine RBC (0-5) /hpf Urine WBC (0-5) /hpf Urine WBC Clumps (None) /hpf Ur Squamous Epith Cells (0-4) /hpf Amorphous Sediment (None) /hpf Urine Bacteria (None) /hpf Urine Mucus (None) /hpf 12/02/19 12/02/19 12/02/19 Range/Units 01:57 05:00 05:01 WBC (3.8-10.6) k/uL RBC (3.80-5.40) m/uL Hgb (11.4-16.0) gm/dL Hct (34.0-46.0) % MCV (80.0-100.0) fL MCH (25.0-35.0) pg MCHC (31.0-37.0) g/dL RDW (11.5-15.5) % Plt Count (150-450) k/uL Neutrophils % % Lymphocytes % % Monocytes % % Eosinophils % % Basophils % % Neutrophils # (1.3-7.7) k/uL Lymphocytes # (1.0-4.8) k/uL Monocytes # (0-1.0) k/uL Eosinophils # (0-0.7) k/uL Basophils # (0-0.2) k/uL Manual Slide Review Polychromasia Anisocytosis Anisocytosis (manual) Macrocytosis PT (9.0-12.0) sec INR (<1.2) APTT (22.0-30.0) sec Sodium (137-145) mmol/L Potassium (3.5-5.1) mmol/L Chloride (98-107) mmol/L Carbon Dioxide (22-30) mmol/L Anion Gap mmol/L BUN (7-17) mg/dL Creatinine (0.52-1.04) mg/dL Est GFR (CKD-EPI)AfAm (>60 ml/min/1.73 sqM) Est GFR (CKD-EPI)NonAf (>60 ml/min/1.73 sqM) Glucose (74-99) mg/dL Plasma Lactic Acid Micha (0.7-2.0) mmol/L Calcium (8.4-10.2) mg/dL Ferritin (10.0-291.0) ng/mL Total Bilirubin (0.2-1.3) mg/dL AST (14-36) U/L ALT (4-34) U/L Alkaline Phosphatase (38-126) U/L Lactate Dehydrogenase (313-618) U/L Troponin I 0.223 H* (0.000-0.034) ng/mL C-Reactive Protein (<10.0) mg/L Total Protein (6.3-8.2) g/dL Albumin (3.5-5.0) g/dL Procalcitonin 11.43 H (0.02-0.09) ng/mL Urine Color Yellow Urine Appearance Cloudy H (Clear) Urine pH 8.5 H (5.0-8.0) Ur Specific [place] 1.013 (1.001-1.035) Urine Protein 3+ H (Negative) Urine Glucose (UA) 3+ H (Negative) Urine Ketones Negative (Negative) Urine Blood Small H (Negative) Urine Nitrite Negative (Negative) Urine Bilirubin Negative (Negative) Urine Urobilinogen 2.0 (<2.0) mg/dL Ur Leukocyte Esterase Moderate H (Negative) Urine RBC 2 (0-5) /hpf Urine WBC 11 H (0-5) /hpf Urine WBC Clumps Rare H (None) /hpf Ur Squamous Epith Cells 19 H (0-4) /hpf Amorphous Sediment Rare H (None) /hpf Urine Bacteria Many H (None) /hpf Urine Mucus Rare H (None) /hpf Disposition Is patient prescribed a controlled substance at d/c from ED?: No <Huy Levy - Last Filed: 12/02/19 07:00> <Jeanette Hooper - Last Filed: 12/03/19 22:07> Clinical Impression: Fever Disposition: ADMITTED IP TO THIS HOSP Condition: Fair
--- NOTE | 2019-12-02 01:58 | XR ---
EXAMINATION TYPE: XR chest 1V portable DATE OF EXAM: 12/02/2019 COMPARISON: 05/15/2019 HISTORY: Chest pain TECHNIQUE: Single view FINDINGS: Heart is enlarged. There is coarsening of interstitial markings. There is no gross heart fa ilure. There is no pleural effusion. There are no hilar masses. IMPRESSION: Coarse lung markings unchanged compared to old exam. Moderate cardiomegaly. Unchanged.
[2019-12-02 02:39] LABS: Albumin 3.9 g/dL (3.5-5.0); Calcium 8.2 mg/dL (8.4-10.2); Potassium 3.8 mmol/L (3.5-5.1); Total Bilirubin 1.1 mg/dL (0.2-1.3); Total Protein 6.1 g/dL (6.3-8.2)
[2019-12-02 02:40] LABS: INR 1.1 (<1.2); Partial Thromboplastin Time 25.8 sec (22.0-30.0); Prothrombin Time 11.6 sec (9.0-12.0)
[2019-12-02 03:13] LABS: Anisocytosis Slight; Basophils % (A) 0 %; Eosinophils % (A) 1 %; HCT 23.6 % (34.0-46.0); HGB 8.1 gm/dL (11.4-16.0); Lymphocytes # (A) 0.1 k/uL (1.0-4.8); Lymphocytes % (A) 3 %; MCH 33.3 pg (25.0-35.0); MCHC 34.4 g/dL (31.0-37.0); MCV 96.9 fL (80.0-100.0); Macrocytosis Slight; Mean Platelet Volume 8.2; Monocytes # (A) 0.3 k/uL (0-1.0); Monocytes % (A) 8 %; Neutrophils # (A) 3.9 k/uL (1.3-7.7); Neutrophils % (A) 87 %; RBC 2.43 m/uL (3.80-5.40); RDW 17.6 % (11.5-15.5); WBC 4.5 k/uL (3.8-10.6)
[2019-12-02 03:16] LABS: Platelet Count 53 k/uL (150-450)
[2019-12-02 03:18] LABS: Anisocytosis (M) Present; Polychromasia Present
[2019-12-02 06:03] LABS: Amorphous Sediment,Urine Rare /hpf; Appearance,Urine Cloudy (Clear); Bacteria,Urine Many /hpf; Bilirubin,Urine Negative (Negative); Blood,Urine Small (Negative); Color,Urine Yellow; Glucose,Urine (UA) 3+ (Negative); Ketones,Urine Negative (Negative); Leukocyte Esterase,Urine Moderate (Negative); Mucus,Urine Rare /hpf; Nitrite,Urine Negative (Negative); PH, Urine 8.5 (5.0-8.0); Protein,Urine 3+ (Negative); RBC,Urine 2 /hpf (0-5); Specific Gravity,Urine 1.013 (1.001-1.035); Squamous Epithelial Cell,Urine 19 /hpf (0-4); WBC,Urine 11 /hpf (0-5)
[2019-12-02] MEDS ORDERED: ONDANSETRON 4 MG/2 ML VIAL IVP STA (06:29)
[2019-12-02] MEDS ORDERED: VANCOMYCIN IV PER PHARMACY 1 EACH MISC MISCELLANE PRN (06:53)
[2019-12-02] MEDS ORDERED: VANCOMYCIN 1,250 MG in SODIUM CHLORIDE 0.9% 250 ML IVPB STA (07:03)
[2019-12-02 08:39] LABS: Glucose,Whole Blood 271 mg/dL (75-99)
[2019-12-02] MEDS ORDERED: SEVELAMER 800 MG TAB PO PRN (08:51)
[2019-12-02] MEDS ORDERED: IPRATROPIUM-ALBUTEROL 3 ML NEB INHALATION PRN (08:54)
[2019-12-02] MEDS ORDERED: NON FORMULARY DRUG (Omeprazole [Omeprazole] 20 MG) PO SCH (09:00)
[2019-12-02] MEDS: LABETALOL 200 MG TAB PO SCH ×2 (10:33→20:54)
[2019-12-02] MEDS: INSULIN DETEMIR (LEVEMIR) 100 UNIT/ML SYR SQ SCH ×2 (10:33→20:53)
[2019-12-02] MEDS: ASPIRIN 81 MG PO SCH (10:43)
[2019-12-02] MEDS: cloNIDine HCL 0.1 MG TAB PO SCH ×3 (10:43→20:59)
[2019-12-02] MEDS: PANTOPRAZOLE 40 MG/10 ML VIAL IVP SCH (10:43)
[2019-12-02] MEDS: HYDROcodone/APAP 7.5-325MG 1 EACH TAB PO SCH ×3 (10:43→20:59)
[2019-12-02] MEDS: SODIUM POLYSTYRENE SULFONATE 15 GM/60 ML BOTTLE PO SCH (10:45)
[2019-12-02] MEDS: FUROSEMIDE 80 MG TAB PO SCH ×2 (11:09→16:38)
[2019-12-02] MEDS: MONTELUKAST 10 MG TAB PO SCH (11:09)
[2019-12-02] MEDS: hydrALAZINE HCL 50 MG TAB PO SCH ×3 (11:09→20:59)
[2019-12-02] MEDS: GABAPENTIN 100 MG CAP PO SCH ×3 (11:09→20:59)
[2019-12-02] MEDS: KETOTIFEN 0.025% OPHTH DROPS 5 ML BTL BOTH EYES SCH ×2 (11:11→20:54)
[2019-12-02 13:58] LABS: C Reactive Protein 88.6 mg/L (<10.0)
--- NOTE | 2019-12-02 15:51 | HP ---
HISTORY AND PHYSICAL This patient is a 54-year-old white female admitted to the hospital with dehydration, end-stage renal disease, generalized weakness, fatigue; not sure why. She might be dehydrated. Progressively more weak and fatigued than normal. No focal weakness. She possibly had a fever. We are going to rule her out for coronavirus. Denies any chest pain, hemoptysis, leg swelling. HOME MEDICATIONS: See list. ALLERGIES: CIPRO, IODINE. REVIEW OF SYSTEMS: Fourteen-point review of systems negative except for mentioned in the HPI. PAST MEDICAL HISTORY: Blood disorder, heart failure, diabetes mellitus, dialysis, dyslipidemia, hypertension, liver disease, pneumonia, renal disease, cataracts, retinal hemorrhages, UTI, chronic anemia, possible liver disease, orthopedic surgery, uterine ambulation. Mother with cancer. Father with hypertension. SKIN: Warm, dry, intact. Blood pressure is high, 148 to 202 over 67 to 70, temperature 103.2 to 100.3, respiratory rate 16 to 18. Hemoglobin is 8.1, sodium 127. BUN 53, creatinine 6.09. ASSESSMENT: 1. Acute febrile illness and dehydration; unclear etiology. Will have to rule out COVID on her. Rule out congestive heart failure and UTI versus dialysis infection. Consult Dr. Coker. White count is normal. 2. Elevated liver enzymes; unclear etiology. 3. Troponins elevated. Will get consults. Broad-spectrum antibiotics. MMODL / IJN: [id number] /
[2019-12-02] MEDS: INSULIN ASPART (NovoLOG) 100 UNIT/ML VIAL SQ SCH ×6 (16:23→20:53)
[2019-12-02] MEDS: SEVELAMER 800 MG TAB PO SCH ×2 (16:23→17:24)
[2019-12-02] MEDS: ALBUTEROL HFA INHALER INHALATION PRN ×2 (16:32→19:46)
[2019-12-02 16:36] LABS: Glucose,Whole Blood 210 mg/dL (75-99)
--- NOTE | 2019-12-02 19:08 | P.CNPUL ---
History of Present Illness Consult date: 12/02/19 Reason for consult: dyspnea, chest pain Chief complaint: Increased weakness and generalized fatigue History of present illness: This is a 54-year-old female with end-stage renal disease on hemodialysis, patient had a hemodialysis yesterday morning, following that she is started complaining fever or generalized weakness and fatigue she had some shortness of breath as well along with occasional cough nonproductive of sputum, due to progressive symptoms patient decided to come into the hospital she was evaluated and has been admitted into the hospital, patient has end-stage renal disease and diabetes as well has been on insulin, also has a history of chronic asthma, has been using bronchodilator as needed otherwise she is on singular, her labs are significant for chronic anemia thrombocytopenia, hyponatremia urine is positive for many bacteria leukocyte history is troponin mildly elevated, covid testing is pending Review of Systems All systems: negative Past Medical History Past Medical History: Blood Disorder, Heart Failure, Diabetes Mellitus, Dialysis, Hyperlipidemia, Hypertension, Liver Disease, Pneumonia, Renal Disease Additional Past Medical History / Comment(s): Bilateral cataracts, recently d iagnosed with bilateral retinal hemorrhages, hypertriglyceridemia-induced acute pancreatitis, THEN necrotizing pancreatitis. hemodialysis for acute kidney injury 2 months in 2009 after pancreatic OR, 11/2015 diagnosed w/ chronic kidney disease-hemodialysis -last hemodialysis 06/02/19, IDDM type II, past DKA, pt states she has dry heaves day after dialysis, UTI, chronic anemia, frequent body cramping, occasional low back pain, carter's palsy x2, past L leg fx, possible liver disease-recent liver bx-results unknown per pt. History of Any Multi-Drug Resistant Organisms: None Reported Past Surgical History: Orthopedic Surgery, Uterine Ablation Additional Past Surgical History / Comment(s): Recent liver biopsy done at [place] but pt states they have never contacted her with the results, 08/26/17 colonoscopy with polypectomy/bx, pancreatic resection at [facility] 2009, bone marrow biopsies X2-last one 05/19/16,. dialysis chest port x 2 with removals, Left arm shunt placement for dialysis - December 2015 and a revision done with shunt. Left forearm Vein Revision - October 2019 Past Anesthesia/Blood Transfusion Reactions: No Reported Reaction Additional Past Anesthesia/Blood Transfusion Reaction / Comment(s): Pt has received blood transfusions without reaction. Past Psychological History: No Psychological Hx Reported Additional Psychological History / Comment(s): Pt resides at her mother in laws home at this time with spouse. They are her mother in laws caretakers. She is independent. She uses no assistive device. She drives. Smoking Status: Never smoker Past Alcohol Use History: None Reported Additional Past Alcohol Use History / Comment(s): Patient is a lifelong nonsmoker. Past Drug Use History: None Reported - Past Family History Brother(s) Family Medical History: No Reported History Mother Family Medical History: Cancer Additional Family Medical History / Comment(s): . Father Family Medical History: Hypertension Additional Family Medical History / Comment(s): alcoholism Medications and Allergies Home Medications Medication Instructions Recorded Confirmed Type Cyclobenzaprine [Flexeril] 5 mg PO HS 09/14/15 12/02/19 History cloNIDine HCL 0.3 mg PO TID 12/16/16 12/02/19 History Sevelamer [Renvela] 800 mg PO DAILY PRN 08/21/17 12/02/19 History Furosemide [Lasix] 80 mg PO BID 10/22/17 12/02/19 History Prochlorperazine [Compazine] 5 mg PO BID PRN 10/26/17 12/02/19 History Sevelamer [Renvela] 2,400 mg PO AC-TID 03/13/18 12/02/19 History Gabapentin [Neurontin] 100 mg PO TID 05/17/18 12/02/19 History INSULIN LISPRO (humaLOG) [humaLOG] 18 unit SQ AC-TID 07/12/18 12/02/19 History Omeprazole 20 mg PO BID 11/01/18 12/02/19 History Lidocaine-Prilocaine Cream [Emla 1 applic TOPICAL TUTHSA 11/21/18 12/02/19 History Cream 2.5%/2.5%] rOPINIRole HCL [Requip] 1 mg PO TID 12/01/18 12/02/19 History hydrALAZINE HCL [Apresoline] 100 mg PO TID 12/14/18 12/02/19 History Aspirin EC [Ecotrin Low Dose] 81 mg PO DAILY #30 tablet. 12/17/18 12/02/19 Rx Labetalol [Trandate] 400 mg PO BID #120 tab 12/17/18 12/02/19 Rx NIFEdipine XL [Procardia XL] 90 mg PO DAILY #30 tab.er.24 12/17/18 12/02/19 Rx diazePAM [Valium] 5 mg PO BID PRN 01/21/19 12/02/19 History Albuterol Sulfate [Ventolin HFA] 1 - 2 puff INHALATION RT-BID 05/23/19 12/02/19 History Ascorbic Acid [Vitamin C] 500 mg PO DAILY 11/08/19 12/02/19 History Atorvastatin [Lipitor] 40 mg PO HS 11/08/19 12/02/19 History HYDROcodone/APAP 7.5-325MG [[place] 1 tab PO TID 11/08/19 12/02/19 History 7.5-325] INSULIN LISPRO (humaLOG) [humaLOG] See Protocol SQ ACHS 11/08/19 12/02/19 History Montelukast [Singulair] 10 mg PO DAILY 11/08/19 12/02/19 History Olopatadine HCl [Pataday] 1 - 2 drops BOTH EYES BID 11/08/19 12/02/19 History Sodium Polystyrene Sulfonate 15 gm PO SUMOWEFR 11/08/19 12/02/19 History [Kayexalate] Insulin Glargine,Hum.rec.anlog 20 unit SQ BID 12/02/19 12/02/19 History [[place] U-100] Allergies Allergy/AdvReac Type Severity Reaction Status Date / Time ciprofloxacin [From Cipro] AdvReac AFFECTED Verified 12/02/19 08:10 EYESIGHT ciprofloxacin HCl AdvReac AFFECTED Verified 12/02/19 08:10 [From Cipro] EYESIGHT Iodinated Contrast Media AdvReac RENAL Verified 12/02/19 08:10 FAILURE Physical Exam Vitals: Vital Signs Temp Pulse Pulse Resp BP BP Pulse Ox 12/02/19 16:33 98 F 70 18 125/60 97 12/02/19 15:57 16 12/02/19 13:00 98.4 F 74 16 119/59 92 L 12/02/19 07:40 99.8 F H 86 18 133/66 96 12/02/19 06:30 100 F H 87 16 162/58 97 12/02/19 05:00 100.3 F H 88 18 148/67 96 12/02/19 02:57 102.6 F H 96 18 185/68 96 12/02/19 01:03 103.2 F H 96 18 202/70 92 L Intake and Output 12/02/19 12/02/19 12/02/19 06:59 14:59 22:59 Output Total 2 Balance -2 Output: Stool 2 Other: # Voids 3 Weight 73.482 kg 73.482 kg - Constitutional General appearance: cooperative, disheveled - EENT Eyes: EOMI, PERRLA Ears: bilateral: normal - Neck Neck: normal ROM Carotids: bilateral: upstroke normal Thyroid: bilateral: normal size - Respiratory Respiratory: bilateral: CTA - Cardiovascular Rhythm: regular Heart sounds: normal: S1, S2 - Gastrointestinal General gastrointestinal: decreased bowel sounds, soft - Neurologic Neurologic: CNII-XII intact - Musculoskeletal Musculoskeletal: generalized weakness, strength equal bilaterally - Psychiatric Psychiatric: A&O x's 3, appropriate affect, intact judgment & insight Results - Laboratory Findings CBC and BMP: 12/02/19 01:57 12/02/19 01:57 PT/INR, D-dimer PT 11.6 sec (9.0-12.0) 12/02/19 01:57 INR 1.1 (<1.2) 12/02/19 01:57 Abnormal lab findings: Abnormal Labs 12/02/19 12/02/19 12/02/19 01:57 01:57 01:57 RBC 2.43 L Hgb 8.1 L Hct 23.6 L RDW 17.6 H Plt Count 53 L Lymphocytes # 0.1 L Sodium 127 L Chloride 85 L BUN 53 H Creatinine 6.09 H Glucose 246 H POC Glucose (mg/dL) Calcium 8.2 L AST 75 H ALT 49 H Alkaline Phosphatase 164 H Lactate Dehydrogenase Troponin I 0.201 H* C-Reactive Protein Total Protein 6.1 L Urine Appearance Urine pH Urine Protein Urine Glucose (UA) Urine Blood Ur Leukocyte Esterase Urine WBC Urine WBC Clumps Ur Squamous Epith Cells Amorphous Sediment Urine Bacteria Urine Mucus 12/02/19 12/02/19 12/02/19 01:57 05:00 05:01 RBC Hgb Hct RDW Plt Count Lymphocytes # Sodium Chloride BUN Creatinine Glucose POC Glucose (mg/dL) Calcium AST ALT Alkaline Phosphatase Lactate Dehydrogenase 817 H Troponin I 0.223 H* C-Reactive Protein 88.6 H Total Protein Urine Appearance Cloudy H Urine pH 8.5 H Urine Protein 3+ H Urine Glucose (UA) 3+ H Urine Blood Small H Ur Leukocyte Esterase Moderate H Urine WBC 11 H Urine WBC Clumps Rare H Ur Squamous Epith Cells 19 H Amorphous Sediment Rare H Urine Bacteria Many H Urine Mucus Rare H 12/02/19 12/02/19 08:36 16:32 RBC Hgb Hct RDW Plt Count Lymphocytes # Sodium Chloride BUN Creatinine Glucose POC Glucose (mg/dL) 271 H 210 H Calcium AST ALT Alkaline Phosphatase Lactate Dehydrogenase Troponin I C-Reactive Protein Total Protein Urine Appearance Urine pH Urine Protein Urine Glucose (UA) Urine Blood Ur Leukocyte Esterase Urine WBC Urine WBC Clumps Ur Squamous Epith Cells Amorphous Sediment Urine Bacteria Urine Mucus - Diagnostic Findings Chest x-ray: report reviewed, image reviewed (Finding as noted above) Assessment and Plan Assessment: Generalized weakness and fatigue likely related to urinary tract infection, patient has been adequately treated with Rocephin Chronic persistent asthma mild category stable Chronic kidney disease due to end-stage renal failure on hemodialysis Electrolyte imbalance related to hyponatremia Covid 19 testing is pending Plan: Continue as needed bronchodilator Broad-spectrum antibiotics Follow-up on urine and blood culture Follow-up on PCR for covid 19 Time with Patient: Greater than 30
[2019-12-02 20:08] LABS: Glucose,Whole Blood 263 mg/dL (75-99)
[2019-12-02 20:16] LABS: Ferritin 4820.2 ng/mL (10.0-291.0)
[2019-12-02] MEDS: ATORVASTATIN 40 MG TAB PO SCH (20:53)
--- NOTE | 2019-12-02 23:03 | P.CONS ---
History of Present Illness - Reason for Consult Consult date: 12/02/19 Fever Requesting physician: David Bragg - Chief Complaint Not feeling well x few days - History of Present Illness Patient is a 54-year-old female with a past medical history significant for end-stage renal disease on hemodialysis through the left arm AV fistula in this patient who did mention recent manipulation of her fistula make it work however she not sure about specific procedure that was done to it and where the procedure was done, patient did have paralysis of this morning after dialysis patient was progressively feeling weak and tired and no energy she denies having any headache or URI symptoms patient denies having any chest pain some shortness of breath minimal cough which is dry in nature no nausea no vomiting no diarrhea with these symptoms the patient was evaluated by the ER physician , on arrival to the ER the patient did have a fever of 103F patient did have a normal white count has Lymphopenia Chest X-Ray Was Negative for Any A cute Changes UA Was Mildly Positive Patient Received a Dose of Rocephin and Vancomycin in the ER, Subsequently Patient Has Been Admitted to the Hospital, blood culture drawn in the ER her notion gram-positive cocci infectious disease was consulted for further management of antibiotic therapy Review of Systems Positive point has been mentioned in the HPI rest of the systems are negative Past Medical History Past Medical History: Blood Disorder, Heart Failure, Diabetes Mellitus, Dialysis, Hyperlipidemia, Hypertension, Liver Disease, Pneumonia, Renal Disease Additional Past Medical History / Comment(s): Bilateral cataracts, recently diagnosed with bilateral retinal hemorrhages, hypertriglyceridemia-induced acute pancreatitis, THEN necrotizing pancreatitis. hemodialysis for acute kidney injury 2 months in 2009 after pancreatic OR, 11/2015 diagnosed w/ chronic kidney disease-hemodialysis -last hemodialysis 06/02/19, IDDM type II, past DKA, pt states she has dry heaves day after dialysis, UTI, chronic anemia, frequent body cramping, occasional low back pain, carter's palsy x2, past L leg fx, possible liver disease-recent liver bx-results unknown per pt. History of Any Multi-Drug Resistant Organisms: None Reported Past Surgical History: Orthopedic Surgery, Uterine Ablation Additional Past Surgical History / Comment(s): Recent liver biopsy done at [place] but pt states they have never contacted her with the results, 08/26/17 colonoscopy with polypectomy/bx, pancreatic resection at [facility] 2009, bone marrow biopsies X2-last one 05/19/16,. dialysis chest port x 2 with removals, Left arm shunt placement for dialysis - December 2015 and a revision done with shunt. Left forearm Vein Revision - October 2019 Past Anesthesia/Blood Transfusion Reactions: No Reported Reaction Additional Past Anesthesia/Blood Transfusion Reaction / Comm: Pt has received blood transfusions without reaction. Past Psychological History: No Psychological Hx Reported Additional Psychological History / Comment(s): Pt resides at her mother in laws home at this time with spouse. They are her mother in laws caretakers. She is independent. She uses no assistive device. She drives. Smoking Status: Never smoker Past Alcohol Use History: None Reported Additional Past Alcohol Use History / Comment(s): Patient is a lifelong nonsmoker. Past Drug Use History: None Reported - Past Family History Brother(s) Family Medical History: No Reported History Mother Family Medical History: Cancer Additional Family Medical History / Comment(s): . Father Family Medical History: Hypertension Additional Family Medical History / Comment(s): alcoholism Medications and Allergies Home Medications Medication Instructions Recorded Confirmed Type Cyclobenzaprine [Flexeril] 5 mg PO HS 09/14/15 12/02/19 History cloNIDine HCL 0.3 mg PO TID 12/16/16 12/02/19 History Sevelamer [Renvela] 800 mg PO DAILY PRN 08/21/17 12/02/19 History Furosemide [Lasix] 80 mg PO BID 10/22/17 12/02/19 History Prochlorperazine [Compazine] 5 mg PO BID PRN 10/26/17 12/02/19 History Sevelamer [Renvela] 2,400 mg PO AC-TID 03/13/18 12/02/19 History Gabapentin [Neurontin] 100 mg PO TID 05/17/18 12/02/19 History INSULIN LISPRO (humaLOG) [humaLOG] 18 unit SQ AC-TID 07/12/18 12/02/19 History Omeprazole 20 mg PO BID 11/01/18 12/02/19 History Lidocaine-Prilocaine Cream [Emla 1 applic TOPICAL TUTHSA 11/21/18 12/02/19 History Cream 2.5%/2.5%] rOPINIRole HCL [Requip] 1 mg PO TID 12/01/18 12/02/19 History hydrALAZINE HCL [Apresoline] 100 mg PO TID 12/14/18 12/02/19 History Aspirin EC [Ecotrin Low Dose] 81 mg PO DAILY #30 tablet.dr 12/17/18 12/02/19 Rx Labetalol [Trandate] 400 mg PO BID #120 tab 12/17/18 12/02/19 Rx NIFEdipine XL [Procardia XL] 90 mg PO DAILY #30 tab.er.24 12/17/18 12/02/19 Rx diazePAM [Valium] 5 mg PO BID PRN 01/21/19 12/02/19 History Albuterol Sulfate [Ventolin HFA] 1 - 2 puff INHALATION RT-BID 05/23/19 12/02/19 History Ascorbic Acid [Vitamin C] 500 mg PO DAILY 11/08/19 12/02/19 History Atorvastatin [Lipitor] 40 mg PO HS 11/08/19 12/02/19 History HYDROcodone/APAP 7.5-325MG [[place] 1 tab PO TID 11/08/19 12/02/19 History 7.5-325] INSULIN LISPRO (humaLOG) [humaLOG] See Protocol SQ ACHS 11/08/19 12/02/19 History Montelukast [Singulair] 10 mg PO DAILY 11/08/19 12/02/19 History Olopatadine HCl [Pataday] 1 - 2 drops BOTH EYES BID 11/08/19 12/02/19 History Sodium Polystyrene Sulfonate 15 gm PO SUMOWEFR 11/08/19 12/02/19 History [Kayexalate] Insulin Glargine,Hum.rec.anlog 20 unit SQ BID 12/02/19 12/02/19 History [Basaglar Kwikpen U-100] Allergies Allergy/AdvReac Type Severity Reaction Status Date / Time ciprofloxacin [From Cipro] AdvReac AFFECTED Verified 12/02/19 08:10 EYESIGHT ciprofloxacin HCl AdvReac AFFECTED Verified 12/02/19 08:10 [From Cipro] EYESIGHT Iodinated Contrast Media AdvReac RENAL Verified 12/02/19 08:10 FAILURE Physical Exam Vitals: Vital Signs Temp Pulse Pulse Resp BP BP Pulse Ox 12/02/19 15:57 16 12/02/19 13:00 98.4 F 74 16 119/59 92 L 12/02/19 07:40 99.8 F H 86 18 133/66 96 12/02/19 06:30 100 F H 87 16 162/58 97 12/02/19 05:00 100.3 F H 88 18 148/67 96 12/02/19 02:57 102.6 F H 96 18 185/68 96 12/02/19 01:03 103.2 F H 96 18 202/70 92 L Intake and Output 12/02/19 12/02/19 12/02/19 06:59 14:59 22:59 Output Total 2 Balance -2 Output: Stool 2 Other: # Voids 3 Weight 73.482 kg 73.482 kg GENERAL DESCRIPTION: Middle-aged female lying in bed, no distress. No tachypnea or accessory muscle of respiration use. HEENT: Shows Pallor , no scleral icterus. Oral mucous membrane is dry. No pharyngeal erythema or thrush NECK: Trachea central, no thyromegaly. LUNGS: Unlabored breathing. Clear to auscultation anteriorly. No wheeze or crackle. HEART: S1, S2, regular rate and rhythm. No loud murmur ABDOMEN: Soft, no tenderness , guarding or rigidity, no organomegaly EXTREMITIES: No edema of feet. SKIN: No rash, no masses palpable. Left arm AV fistula site with no redness NEUROLOGICAL: The patient is awake, alert, oriented x3, mood and affect normal. Results CBC & Chem 7: 12/02/19 01:57 12/02/19 01:57 Labs: Abnormal Lab Results - Last 24 Hours (Table) 12/02/19 12/02/19 12/02/19 Range/Units 01:57 01:57 01:57 RBC 2.43 L (3.80-5.40) m/uL Hgb 8.1 L (11.4-16.0) gm/dL Hct 23.6 L (34.0-46.0) % RDW 17.6 H (11.5-15.5) % Plt Count 53 L (150-450) k/uL Lymphocytes # 0.1 L (1.0-4.8) k/uL Sodium 127 L (137-145) mmol/L Chloride 85 L (98-107) mmol/L BUN 53 H (7-17) mg/dL Creatinine 6.09 H (0.52-1.04) mg/dL Glucose 246 H (74-99) mg/dL POC Glucose (mg/dL) (75-99) mg/dL Calcium 8.2 L (8.4-10.2) mg/dL AST 75 H (14-36) U/L ALT 49 H (4-34) U/L Alkaline Phosphatase 164 H (38-126) U/L Lactate Dehydrogenase (313-618) U/L Troponin I 0.201 H* (0.000-0.034) ng/mL C-Reactive Protein (<10.0) mg/L Total Protein 6.1 L (6.3-8.2) g/dL Urine Appearance (Clear) Urine pH (5.0-8.0) Urine Protein (Negative) Urine Glucose (UA) (Negative) Urine Blood (Negative) Ur Leukocyte Esterase (Negative) Urine WBC (0-5) /hpf Urine WBC Clumps (None) /hpf Ur Squamous Epith Cells (0-4) /hpf Amorphous Sediment (None) /hpf Urine Bacteria (None) /hpf Urine Mucus (None) /hpf 12/02/19 12/02/19 12/02/19 Range/Units 01:57 05:00 05:01 RBC (3.80-5.40) m/uL Hgb (11.4-16.0) gm/dL Hct (34.0-46.0) % RDW (11.5-15.5) % Plt Count (150-450) k/uL Lymphocytes # (1.0-4.8) k/uL Sodium (137-145) mmol/L Chloride (98-107) mmol/L BUN (7-17) mg/dL Creatinine (0.52-1.04) mg/dL Glucose (74-99) mg/dL POC Glucose (mg/dL) (75-99) mg/dL Calcium (8.4-10.2) mg/dL AST (14-36) U/L ALT (4-34) U/L Alkaline Phosphatase (38-126) U/L Lactate Dehydrogenase 817 H (313-618) U/L Troponin I 0.223 H* (0.000-0.034) ng/mL C-Reactive Protein 88.6 H (<10.0) mg/L Total Protein (6.3-8.2) g/dL Urine Appearance Cloudy H (Clear) Urine pH 8.5 H (5.0-8.0) Urine Protein 3+ H (Negative) Urine Glucose (UA) 3+ H (Negative) Urine Blood Small H (Negative) Ur Leukocyte Esterase Moderate H (Negative) Urine WBC 11 H (0-5) /hpf Urine WBC Clumps Rare H (None) /hpf Ur Squamous Epith Cells 19 H (0-4) /hpf Amorphous Sediment Rare H (None) /hpf Urine Bacteria Many H (None) /hpf Urine Mucus Rare H (None) /hpf 12/02/19 Range/Units 08:36 RBC (3.80-5.40) m/uL Hgb (11.4-16.0) gm/dL Hct (34.0-46.0) % RDW (11.5-15.5) % Plt Count (150-450) k/uL Lymphocytes # (1.0-4.8) k/uL Sodium (137-145) mmol/L Chloride (98-107) mmol/L BUN (7-17) mg/dL Creatinine (0.52-1.04) mg/dL Glucose (74-99) mg/dL POC Glucose (mg/dL) 271 H (75-99) mg/dL Calcium (8.4-10.2) mg/dL AST (14-36) U/L ALT (4-34) U/L Alkaline Phosphatase (38-126) U/L Lactate Dehydrogenase (313-618) U/L Troponin I (0.000-0.034) ng/mL C-Reactive Protein (<10.0) mg/L Total Protein (6.3-8.2) g/dL Urine Appearance (Clear) Urine pH (5.0-8.0) Urine Protein (Negative) Urine Glucose (UA) (Negative) Urine Blood (Negative) Ur Leukocyte Esterase (Negative) Urine WBC (0-5) /hpf Urine WBC Clumps (None) /hpf Ur Squamous Epith Cells (0-4) /hpf Amorphous Sediment (None) /hpf Urine Bacteria (None) /hpf Urine Mucus (None) /hpf Microbiology - Last 24 Hours (Table) 12/02/19 01:57 Blood Culture - Final Blood 12/02/19 05:00 Urine Culture - Preliminary Urine,Voided Assessment and Plan Assessment: 1- patient presented to hospital with generalized weakness in this patient who did have a fever now with evidence of gram-positive bacteremia in this patient was recently did have manipulation of her AV fistula could be the likely source of this fever and bacteremia as patient currently do not have any Other obvious focus of infection no significant respiratory symptoms chest is negative for any consolidation abdominal soft nontender on clinical Examination and no evidence of any cellulitis 2- Patient with multiple antibiotic ALLERGIES that would limit the number of antibiotic safe to use (1) Gram-positive bacteremia Current Visit: Yes Status: Acute Code(s): R78.81 - BACTEREMIA SNOMED Code(s): 862315156165 (2) Fever Current Visit: Yes Status: Acute Code(s): R50.9 - FEVER, UNSPECIFIED SNOMED Code(s): 906886660 Plan: 1- blood cultures will be repeated today as well as tomorrow to document clearance of bacteremia 2- Vancomycin pharmacy to dose target trough of 15 while watching his kidney function and Vanco trough closely We will follow on clinical condition and cultures to further adjust medication if needed Thank you for this consultation will follow this patient with you
[2019-12-03] MEDS: SEVELAMER 800 MG TAB PO SCH ×3 (06:26→18:11)
[2019-12-03 07:36] LABS: Glucose,Whole Blood 107 mg/dL (75-99)
[2019-12-03] MEDS ORDERED: VANCOMYCIN 1,250 MG in SODIUM CHLORIDE 0.9% 250 ML IVPB ONE (08:00)
[2019-12-03 08:02] LABS: Anisocytosis Slight; HCT 20.7 % (34.0-46.0); Hypochromasia Slight; MCV 96.8 fL (80.0-100.0); Macrocytosis Slight; Mean Platelet Volume 10.4; RBC 2.14 m/uL (3.80-5.40); RDW 17.2 % (11.5-15.5); WBC 1.8 k/uL (3.8-10.6)
[2019-12-03 08:06] LABS: Albumin 3.2 g/dL (3.5-5.0); Calcium 7.7 mg/dL (8.4-10.2); Potassium 4.2 mmol/L (3.5-5.1); Total Protein 5.2 g/dL (6.3-8.2)
[2019-12-03 08:13] LABS: HGB 6.8 gm/dL (11.4-16.0)
[2019-12-03 08:14] LABS: Platelet Count 31 k/uL (150-450)
[2019-12-03] MEDS: INSULIN ASPART (NovoLOG) 100 UNIT/ML VIAL SQ SCH ×7 (08:18→20:40)
[2019-12-03] MEDS: HYDROcodone/APAP 7.5-325MG 1 EACH TAB PO SCH ×3 (08:32→21:16)
[2019-12-03] MEDS: ASPIRIN 81 MG PO SCH (08:33)
[2019-12-03] MEDS: FUROSEMIDE 80 MG TAB PO SCH ×2 (08:33→18:11)
[2019-12-03] MEDS: GABAPENTIN 100 MG CAP PO SCH ×3 (08:33→21:15)
[2019-12-03] MEDS: MONTELUKAST 10 MG TAB PO SCH (08:33)
[2019-12-03] MEDS: KETOTIFEN 0.025% OPHTH DROPS 5 ML BTL BOTH EYES SCH ×2 (08:34→21:17)
[2019-12-03] MEDS: PANTOPRAZOLE 40 MG/10 ML VIAL IVP SCH (08:34)
[2019-12-03] MEDS: INSULIN DETEMIR (LEVEMIR) 100 UNIT/ML SYR SQ SCH ×2 (08:34→20:40)
[2019-12-03] MEDS: ALBUTEROL HFA INHALER INHALATION PRN ×2 (08:50→21:01)
[2019-12-03] MEDS: TIOTROPIUM 18 MCG/PUFF INHALER INHALATION PRN (08:50)
[2019-12-03 08:52] LABS: Band Neutrophils % 2 %; Eosinophils # (M) 0.05 k/uL (0-0.7); Monocytes # (M) 0.31 k/uL (0-1.0); Neutrophils % (M) 67 %; Nucleated Red Blood Cells 0 /100 WBC (0-0); Total Cells Counted 100
[2019-12-03 08:53] LABS: Poikilocytosis (M) Present
--- NOTE | 2019-12-03 09:09 | P.PN ---
Subjective Progress Note Date: 12/03/19 Principal diagnosis: MRSA bacteremia Generalized weakness and fatigue likely related to above and urinary tract infection, patient has been adequately treated with Rocephin, vancomycin has been added by pharmacy Chronic persistent asthma mild category stable Chronic kidney disease due to end-stage renal failure on hemodialysis Electrolyte imbalance related to hyponatremia Covid 19 testing is pending 12/03/2019, patient seen and evaluated examined during rounds she is sitting upright in the bed breathing more comfortably denies any chest pain or shortness of breath, still feeling weakness slightly better now noted blood cultures have been positive for MRSA, urine culture results are pending, ID service has been following, patient hemoglobin is down to 6.8 patient will benefit from unit of packed RBC transfusion with dialysis This is a 54-year-old female with end-stage renal disease on hemodialysis, patient had a hemodialysis yesterday morning, following that she is started complaining fever or generalized weakness and fatigue she had some shortness of breath as well along with occasional cough nonproductive of sputum, due to progressive symptoms patient decided to come into the hospital she was evaluated and has been admitted into the hospital, patient has end-stage renal disease and diabetes as well has been on insulin, also has a history of chronic asthma, has been using bronchodilator as needed otherwise she is on singular, her labs are significant for chronic anemia thrombocytopenia, hyponatremia urine is positive for many bacteria leukocyte history is troponin mildly elevated, covid testing is pending Objective - Vital Signs Vital signs: Vital Signs Temp 98.2 F 12/03/19 08:00 Pulse 66 12/03/19 08:00 Resp 16 12/03/19 08:00 BP 112/54 12/03/19 08:00 Pulse Ox 98 12/03/19 08:00 Intake & Output 12/02/19 12/03/19 12/03/19 18:59 06:59 18:59 Output Total 2 Balance -2 Weight 73.482 kg 74.5 kg Output: Stool 2 Other: # Voids 3 1 - Exam - Constitutional General appearance: cooperative, disheveled - EENT Eyes: EOMI, PERRLA Ears: bilateral: normal - Neck Neck: normal ROM Carotids: bilateral: upstroke normal Thyroid: bilateral: normal size - Respiratory Respiratory: bilateral: CTA - Cardiovascular Rhythm: regular Heart sounds: normal: S1, S2 - Gastrointestinal General gastrointestinal: decreased bowel sounds, soft - Neurologic Neurologic: CNII-XII intact - Musculoskeletal Musculoskeletal: generalized weakness, strength equal bilaterally - Psychiatric Psychiatric: A&O x's 3, appropriate affect, intact judgment & insight - Labs CBC & Chem 7: 12/03/19 06:54 12/03/19 06:54 Labs: Abnormal Lab Results - Last 24 Hours (Table) 12/02/19 12/02/19 12/02/19 Range/Units 01:57 01:57 16:32 WBC (3.8-10.6) k/uL RBC (3.80-5.40) m/uL Hgb (11.4-16.0) gm/dL Hct (34.0-46.0) % RDW (11.5-15.5) % Plt Count (150-450) k/uL Neutrophils # (Manual) (1.3-7.7) k/uL Lymphocytes # (Manual) (1.0-4.8) k/uL Sodium (137-145) mmol/L Chloride (98-107) mmol/L BUN (7-17) mg/dL Creatinine (0.52-1.04) mg/dL POC Glucose (mg/dL) 210 H (75-99) mg/dL Calcium (8.4-10.2) mg/dL Ferritin 4820.2 H (10.0-291.0) ng/mL AST (14-36) U/L ALT (4-34) U/L Alkaline Phosphatase (38-126) U/L Lactate Dehydrogenase 817 H (313-618) U/L C-Reactive Protein 88.6 H (<10.0) mg/L Total Protein (6.3-8.2) g/dL Albumin (3.5-5.0) g/dL Procalcitonin 11.43 H (0.02-0.09) ng/mL 12/02/19 12/03/19 12/03/19 Range/Units 20:07 06:54 06:54 WBC 1.8 L (3.8-10.6) k/uL RBC 2.14 L (3.80-5.40) m/uL Hgb 6.8 L* (11.4-16.0) gm/dL Hct 20.7 L (34.0-46.0) % RDW 17.2 H (11.5-15.5) % Plt Count 31 L (150-450) k/uL Neutrophils # (Manual) 1.20 L (1.3-7.7) k/uL Lymphocytes # (Manual) 0.20 L (1.0-4.8) k/uL Sodium 129 L (137-145) mmol/L Chloride 87 L (98-107) mmol/L BUN 75 H (7-17) mg/dL Creatinine 8.44 H* (0.52-1.04) mg/dL POC Glucose (mg/dL) 263 H (75-99) mg/dL Calcium 7.7 L (8.4-10.2) mg/dL Ferritin (10.0-291.0) ng/mL AST 113 H (14-36) U/L ALT 116 H (4-34) U/L Alkaline Phosphatase 132 H (38-126) U/L Lactate Dehydrogenase (313-618) U/L C-Reactive Protein (<10.0) mg/L Total Protein 5.2 L (6.3-8.2) g/dL Albumin 3.2 L (3.5-5.0) g/dL Procalcitonin (0.02-0.09) ng/mL /25/20 Range/Units 07:35 WBC (3.8-10.6) k/uL RBC (3.80-5.40) m/uL Hgb (11.4-16.0) gm/dL Hct (34.0-46.0) % RDW (11.5-15.5) % Plt Count (150-450) k/uL Neutrophils # (Manual) (1.3-7.7) k/uL Lymphocytes # (Manual) (1.0-4.8) k/uL Sodium (137-145) mmol/L Chloride (98-107) mmol/L BUN (7-17) mg/dL Creatinine (0.52-1.04) mg/dL POC Glucose (mg/dL) 107 H (75-99) mg/dL Calcium (8.4-10.2) mg/dL Ferritin (10.0-291.0) ng/mL AST (14-36) U/L ALT (4-34) U/L Alkaline Phosphatase (38-126) U/L Lactate Dehydrogenase (313-618) U/L C-Reactive Protein (<10.0) mg/L Total Protein (6.3-8.2) g/dL Albumin (3.5-5.0) g/dL Procalcitonin (0.02-0.09) ng/mL Microbiology - Last 24 Hours (Table) 12/02/19 17:06 Blood Culture - Final Blood 12/01/19 01:57 Blood Culture Gram Stain - Preliminary Blood Blood Culture - Preliminary Presumptive MRSA 12/02/19 01:57 Blood Culture - Final Blood 12/02/19 05:00 Urine Culture - Preliminary Urine,Voided Assessment and Plan Assessment: MRSA bacteremia Anemia likely acute on chronic due to chronic renal failure and ongoing sepsis and bacteremia Generalized weakness and fatigue likely related to above and urinary tract infection, patient has been adequately treated with Rocephin Chronic persistent asthma mild category stable Chronic kidney disease due to end-stage renal failure on hemodialysis Electrolyte imbalance related to hyponatremia Covid 19 testing is pending Plan: Transfuse 1 unit of packed RBC with hemodialysis scheduled for today Continue as needed bronchodilator Broad-spectrum antibiotics Follow-up on urine and blood culture Follow-up on PCR for covid 19 Time with Patient: Greater than 30
--- NOTE | 2019-12-03 10:55 | P.PN ---
Subjective This is a pleasant 54 years old female with multiple medical problems . Presents because of generalized weakness. Found to have gram-positive bact eremia with fever. Vital signs stable No more fever in 24 hours. Her hemoglobin dropped from 8.1 down to 6.8, also her platelets dropped from 53 down to 31 and WBC down to a 1.8 Blood culture showing presumptive MRSA Currently she is on vancomycin pharmacy to dose and Rocephin per ID team recommendation MRSA bacteremia Pancytopenia heart failure Diabetes mellitus Hyperlipidemia Hypertension Recently diagnosed bilateral retinal hemorrhage History of necrotizing pancreatitis Chronic kidney disease on hemodialysis This is a pleasant 54 years old female who presents because of MRSA bacteremia. And then with antibiotics as per infectious disease. Following service evaluated the patient for asthma which looks his stable. We'll give 1 unit of blood transfusion and the last 4 hematology consult Labs and medication were reviewed.. Continue same treatment. Continue with symptomatic treatment. Resume home medication. Monitor lytes and vitals. DVT and GI prophylaxis. Further recommendations of the clinical course of the patient DVT prophylaxis: No heparin in view of low platelets GI Prophylaxis: Pepcid PT/OT: Pending Prognosis is guarded Objective - Vital Signs Vital signs: Vital Signs Temp 98.2 F 12/03/19 08:00 Pulse 66 12/03/19 08:00 Resp 16 12/03/19 08:00 BP 112/54 12/03/19 08:00 Pulse Ox 98 12/03/19 08:00 Intake & Output 12/02/19 12/03/19 12/03/19 18:59 06:59 18:59 Intake Total 240 Output Total 2 Balance -2 240 Weight 73.482 kg 74.5 kg Intake: Oral 240 Output: Stool 2 Other: # Voids 3 1 - Labs CBC & Chem 7: 12/03/19 06:54 12/03/19 06:54 Labs: Abnormal Lab Results - Last 24 Hours (Table) 12/02/19 12/02/19 12/02/19 Range/Units 01:57 01:57 16:32 WBC (3.8-10.6) k/uL RBC (3.80-5.40) m/uL Hgb (11.4-16.0) gm/dL Hct (34.0-46.0) % RDW (11.5-15.5) % Plt Count (150-450) k/uL Neutrophils # (Manual) (1.3-7.7) k/uL Lymphocytes # (Manual) (1.0-4.8) k/uL Sodium (137-145) mmol/L Chloride (98-107) mmol/L BUN (7-17) mg/dL Creatinine (0.52-1.04) mg/dL POC Glucose (mg/dL) 210 H (75-99) mg/dL Calcium (8.4-10.2) mg/dL Ferritin 4820.2 H (10.0-291.0) ng/mL AST (14-36) U/L ALT (4-34) U/L Alkaline Phosphatase (38-126) U/L Lactate Dehydrogenase 817 H (313-618) U/L C-Reactive Protein 88.6 H (<10.0) mg/L Total Protein (6.3-8.2) g/dL Albumin (3.5-5.0) g/dL Procalcitonin 11.43 H (0.02-0.09) ng/mL 12/02/19 12/03/19 12/03/19 Range/Units 20:07 06:54 06:54 WBC 1.8 L (3.8-10.6) k/uL RBC 2.14 L (3.80-5.40) m/uL Hgb 6.8 L* (11.4-16.0) gm/dL Hct 20.7 L (34.0-46.0) % RDW 17.2 H (11.5-15.5) % Plt Count 31 L (150-450) k/uL Neutrophils # (Manual) 1.20 L (1.3-7.7) k/uL Lymphocytes # (Manual) 0.20 L (1.0-4.8) k/uL Sodium 129 L (137-145) mmol/L Chloride 87 L (98-107) mmol/L BUN 75 H (7-17) mg/dL Creatinine 8.44 H* (0.52-1.04) mg/dL POC Glucose (mg/dL) 263 H (75-99) mg/dL Calcium 7.7 L (8.4-10.2) mg/dL Ferritin (10.0-291.0) ng/mL AST 113 H (14-36) U/L ALT 116 H (4-34) U/L Alkaline Phosphatase 132 H (38-126) U/L Lactate Dehydrogenase (313-618) U/L C-Reactive Protein (<10.0) mg/L Total Protein 5.2 L (6.3-8.2) g/dL Albumin 3.2 L (3.5-5.0) g/dL Procalcitonin (0.02-0.09) ng/mL 12/03/19 Range/Units 07:35 WBC (3.8-10.6) k/uL RBC (3.80-5.40) m/uL Hgb (11.4-16.0) gm/dL Hct (34.0-46.0) % RDW (11.5-15.5) % Plt Count (150-450) k/uL Neutrophils # (Manual) (1.3-7.7) k/uL Lymphocytes # (Manual) (1.0-4.8) k/uL Sodium (137-145) mmol/L Chloride (98-107) mmol/L BUN (7-17) mg/dL Creatinine (0.52-1.04) mg/dL POC Glucose (mg/dL) 107 H (75-99) mg/dL Calcium (8.4-10.2) mg/dL Ferritin (10.0-291.0) ng/mL AST (14-36) U/L ALT (4-34) U/L Alkaline Phosphatase (38-126) U/L Lactate Dehydrogenase (313-618) U/L C-Reactive Protein (<10.0) mg/L Total Protein (6.3-8.2) g/dL Albumin (3.5-5.0) g/dL Procalcitonin (0.02-0.09) ng/mL Microbiology - Last 24 Hours (Table) 12/02/19 17:06 Blood Culture Gram Stain - Preliminary Blood 12/02/19 17:06 Blood Culture - Final Blood 12/01/19 01:57 Blood Culture Gram Stain - Preliminary Blood Blood Culture - Preliminary Presumptive MRSA 12/02/19 01:57 Blood Culture - Final Blood 12/02/19 05:00 Urine Culture - Preliminary Urine,Voided Assessment and Plan Assessment: MRSA bacteremia Pancytopenia heart failure Diabetes mellitus Hyperlipidemia Hypertension Recently diagnosed bilateral retinal hemorrhage History of necrotizing pancreatitis Chronic kidney disease on hemodialysis Plan: This is a pleasant 54 years old female who presents because of MRSA bacteremia. And then with antibiotics as per infectious disease. Following service evaluate d the patient for asthma which looks his stable. 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 We'll give 1 unit of blood transfusion , risks and benefits explained to the patient and she agreed Labs and medication were reviewed.. Continue same treatment. Continue with symptomatic treatment. Resume home medication. Monitor lytes and vitals. DVT and GI prophylaxis. Further recommendations of the clinical course of the patient DVT prophylaxis: No heparin in view of low platelets GI Prophylaxis: Pepcid PT/OT: Pending Prognosis is guarded
[2019-12-03] MEDS ORDERED: FAMOTIDINE 20 MG/2 ML VIAL IV SCH (11:00)
[2019-12-03] MEDS ORDERED: LIDOCAINE-PRILOCAINE 2.5-2.5% CREAM 5 GM TUBE TOPICAL SCH (12:00)
[2019-12-03 12:45] LABS: Glucose,Whole Blood 207 mg/dL (75-99)
[2019-12-03] MEDS ORDERED: DARBEPOETIN ALFA 60 MCG/0.3 ML SYRINGE SQ SCH (13:00)
--- NOTE | 2019-12-03 13:44 | CONS ---
CONSULTATION REASON FOR CONSULT: End-stage renal disease. HISTORY OF PRESENT ILLNESS: Patient is a 54-year-old female with end-stage renal disease, on hemodialysis on a Thursday, , Thursday schedule. The patient was admitted to the hospital with complaints off weakness, mental status changes and fatigue. The patient has had issues with her access and recently had intervention on her AV fistula at another facility. Apparently she had a reaction to one of the medications and was severely bradycardic and had CPR for some time. The patient was intubated but later signed off AMA from that hospital. She did come for her outpatient treatment on , 11/30 which was uneventful, but patient's brought her to the hospital that evening as she had a fever of 103 degrees Fahrenheit. Blood cultures from November 30 are growing Staphylococcus aureus, possibly MRSA. No diarrhea, nausea, vomiting, abdominal pain. No chest pains currently. PAST MEDICAL HISTORY: End-stage renal disease, anemia of chronic disease, CKD mineral bone disorder, heart failure, type 2 diabetes, hyperlipidemia, hypertension, chronic liver disease, cataracts, previous history of UTIs, possible chronic liver disease status post liver biopsy, details not available. PAST SURGICAL HISTORY: Liver biopsy, AV fistula with recent intervention, bone marrow biopsies. SOCIAL HISTORY: Negative for smoking, drug abuse or alcohol abuse. MEDICATIONS: Medications prior to admission included Flexeril, Lasix, Compazine, Neurontin, insulin, hydralazine, Requip, aspirin, Trandate, Procardia, Valium, vitamin C, Lipitor, Singulair, Kayexalate, and [place]. ALLERGIES: CIPRO and IV DYE. REVIEW OF SYSTEMS: As per HPI. Other systems negative. PHYSICAL EXAMINATION: Patient is currently comfortable, awake, alert, oriented x3. She is not in any acute distress. Blood pressure is 112/54, heart rate 66 per minute, she is afebrile. Examination of the heart S1, S2. Examination of the lungs, bilateral breath sounds are heard. Abdomen is soft, nontender, obese, distended. Examination of lower extremities shows trace edema bilaterally. A[employer]ON AND B[employer]B INVESTIGATOR exam grossly intact. Patient has AV fistula in the left upper arm. There are multiple areas of pseudoaneurysms noted. LAB: Show sodium 129, potassium 4.2, chloride 87, BUN 75, creatinine 8.4, hemoglobin 6.8 g/dL. ASSESSMENT: 1. End-stage renal disease, on hemodialysis on a Thursday, , Thursday schedule. We will arrange for hemodialysis today. 2. Anemia with previous history of drop in hemoglobin. No previous GI workup according to the patient. We will consult GI. 3. Sepsis with blood cultures growing MRSA, most likely associated with recent intervention on her AV fistula at another hospital facility. Currently maintained on vancomycin, being followed by ID. 4. Chronic kidney disease mineral bone disorder. 5. Volume overload. We will increase UF to about 3 L as tolerated today. PLAN: Transfuse one unit packed RBCs. Hemodialysis today. Continue antibiotics. UF about 3 L today. The patient may need an extra treatment on Thursday. Recommend GI consult for GI workup for anemia. Maintain patient on Aranesp. Thank you for this consultation. We will continue to follow the patient with you during her hospitalization. MMODL / IJN: [id number] /
--- NOTE | 2019-12-03 14:42 | P.CRDCN ---
History of Present Illness History of present illness: This is Nessa Leon PA-C dictating a consult on this patient The patient was interviewed and examined by me as well as by Dr. Perkins Case discussed with Dr. Perkins and he agrees with the plan of care HPI Patient is a 54-year-old female with a history significant for hypertension, diabetes, ESRD on dialysis who presented complaints of malaise and weakness. She is a patient of Dr. Flaherty. Patient is a somewhat poor historian and unable to give many details about the symptoms that brought her in to the hospital. She states she" wasn't feeling herself". She was having diarrhea. She also has a cough with some production of phlegm. She denies any chest pain or shortness of breath. Denies any dizziness or syncope. States she recently had surgery on her AV fistula at an outside hospital about a week ago. He is unable to give details about this hospitalization. Upon arrival to the emergency department she was febrile at 103. Chest x-ray showed no acute process. EKG showed sinus mechanism with no acute changes. Troponin abnormal. Preliminary blood culture showing presumptive MRSA. She has been admitted for further workup. Patient seen and examined resting in bed. States she is feeling a little better. Continues to have a cough. Denies any chest pain, shortness of breath or dizziness. ROS: Positive for fevers, Positive for productive cough Positive for diarrhea no hematuria, dysuria, no musculoskeletal complaints, no strokes or seizures, no skin lesions. EXAMINATION: Patient is afebrile, pulse in the 60s, respirations 16, blood pressure 121/58, oxygen saturation 98% on 2 L nasal cannula Patient seen and examined resting in bed, in no acute distress Lungs are clear to auscultation bilaterally Heart is regular, systolic murmur audible Mild lower extremity edema bilaterally REVIEW OF LABS, ECG & MEDICAL DATA WBC 1.8, hemoglobin 6.8, platelets 31, potassium 4.2, BUN 75, creatinine 8.44 Troponin 0.201, 0.2-3 Coronary angiogram in 2019 showed normal right heart pressures and normal coronary arteries IMPRESSION / ASSESSMENT: #1 symptoms malaise, weakness, and fever secondary to sepsis secondary to MRSA bacteremia #2 ESRD on dialysis, nephrology following #3 abnormal troponins in the setting of sepsis and ESRD #4 hypertension #5 diabetes #6 anemia PLAN: Obtain 2-D echocardiogram and Doppler studies to assess cardiac structure and function and assess murmur Continue statins and antihypertensive management Continue antibiotics and treatment for sepsis per primary care team and infectious disease Past Medical History Past Medical History: Blood Disorder, Heart Failure, Diabetes Mellitus, Dialysis, Hyperlipidemia, Hypertension, Liver Disease, Pneumonia, Renal Disease Additional Past Medical History / Comment(s): Bilateral cataracts, recently diagnosed with bilateral retinal hemorrhages, hypertriglyceridemia-induced acute pancreatitis, THEN necrotizing pancreatitis. hemodialysis for acute kidney injury 2 months in 2009 after pancreatic OR, 11/2015 diagnosed w/ chronic kidney disease-hemodialysis /-last hemodialysis 06/02/19, IDDM type II, past DKA, pt states she has dry heaves day after dialysis, UTI, chronic anemia, frequent body cramping, occasional low back pain, carter's palsy x2, past L leg fx, possible liver disease-recent liver bx-results unknown per pt. History of Any Multi-Drug Resistant Organisms: None Reported Past Surgical History: Orthopedic Surgery, Uterine Ablation Additional Past Surgical History / Comment(s): Recent liver biopsy done at [place] but pt states they have never contacted her with the results, 08/26/17 colonoscopy with polypectomy/bx, pancreatic resection at [facility] 2009, bone marrow biopsies X2-last one 05/19/16,. dialysis chest port x 2 with removals, Left arm shunt placement for dialysis - December 2015 and a revision d one with shunt. Left forearm Vein Revision - October 2019 Past Anesthesia/Blood Transfusion Reactions: No Reported Reaction Additional Past Anesthesia/Blood Transfusion Reaction / Comment(s): Pt has received blood transfusions without reaction. Past Psychological History: No Psychological Hx Reported Additional Psychological History / Comment(s): Pt resides at her mother in laws home at this time with spouse. They are her mother in laws caretakers. She is independent. She uses no assistive device. She drives. Smoking Status: Never smoker Past Alcohol Use History: None Reported Additional Past Alcohol Use History / Comment(s): Patient is a lifelong nonsmoker. Past Drug Use History: None Reported - Past Family History Brother(s) Family Medical History: No Reported History Mother Family Medical History: Cancer Additional Family Medical History / Comment(s): . Father Family Medical History: Hypertension Additional Family Medical History / Comment(s): alcoholism Medications and Allergies Home Medications Medication Instructions Recorded Confirmed Type Cyclobenzaprine [Flexeril] 5 mg PO HS 09/14/15 12/02/19 History cloNIDine HCL 0.3 mg PO TID 12/16/16 12/02/19 History Sevelamer [Renvela] 800 mg PO DAILY PRN 08/21/17 12/02/19 History Furosemide [Lasix] 80 mg PO BID 10/22/17 12/02/19 History Prochlorperazine [Compazine] 5 mg PO BID PRN 10/26/17 12/02/19 History Sevelamer [Renvela] 2,400 mg PO AC-TID 03/13/18 12/02/19 History Gabapentin [Neurontin] 100 mg PO TID 05/17/18 12/02/19 History INSULIN LISPRO (humaLOG) [humaLOG] 18 unit SQ AC-TID 07/12/18 12/02/19 History Omeprazole 20 mg PO BID 11/01/18 12/02/19 History Lidocaine-Prilocaine Cream [Emla 1 applic TOPICAL [facility] 11/21/18 12/02/19 History Cream 2.5%/2.5%] rOPINIRole HCL [Requip] 1 mg PO TID 12/01/18 12/02/19 History hydrALAZINE HCL [Apresoline] 100 mg PO TID 12/14/18 12/02/19 History Aspirin EC [Ecotrin Low Dose] 81 mg PO DAILY #30 tablet. 12/17/18 12/02/19 Rx Labetalol [Trandate] 400 mg PO BID #120 tab 12/17/18 12/02/19 Rx NIFEdipine XL [Procardia XL] 90 mg PO DAILY #30 tab.er.24 12/17/18 12/02/19 Rx diazePAM [Valium] 5 mg PO BID PRN 01/21/19 12/02/19 History Albuterol Sulfate [Ventolin HFA] 1 - 2 puff INHALATION RT-BID 05/23/19 12/02/19 History Ascorbic Acid [Vitamin C] 500 mg PO DAILY 11/08/19 12/02/19 History Atorvastatin [Lipitor] 40 mg PO HS 11/08/19 12/02/19 History HYDROcodone/APAP 7.5-325MG [[place] 1 tab PO TID 11/08/19 12/02/19 History 7.5-325] INSULIN LISPRO (humaLOG) [humaLOG] See Protocol SQ ACHS 11/08/19 12/02/19 History Montelukast [Singulair] 10 mg PO DAILY 11/08/19 12/02/19 History Olopatadine HCl [Pataday] 1 - 2 drops BOTH EYES BID 11/08/19 12/02/19 History Sodium Polystyrene Sulfonate 15 gm PO SUMOWEFR 11/08/19 12/02/19 History [Kayexalate] Insulin Glargine,Hum.rec.anlog 20 unit SQ BID 12/02/19 12/02/19 History [Basaglar Kwikpen U-100] Allergies Allergy/AdvReac Type Severity Reaction Status Date / Time ciprofloxacin [From Cipro] AdvReac AFFECTED Verified 12/02/19 08:10 EYESIGHT ciprofloxacin HCl AdvReac AFFECTED Verified 12/02/19 08:10 [From Cipro] EYESIGHT Iodinated Contrast Media AdvReac RENAL Verified 12/02/19 08:10 FAILURE Physical Exam Vitals: Vital Signs Temp Pulse Resp BP Pulse Ox 12/03/19 12:00 63 16 121/58 98 12/03/19 11:28 16 12/03/19 08:00 98.2 F 66 16 112/54 98 12/03/19 04:00 98.5 F 60 20 107/53 100 12/02/19 23:25 98.1 F 79 20 95/54 99 12/02/19 20:00 98.4 F 71 19 120/58 97 12/02/19 16:33 98 F 70 18 125/60 97 12/02/19 15:57 16 Intake and Output 12/02/19 12/03/19 12/03/19 22:59 06:59 14:59 Intake Total 490 Output Total 2 Balance 488 Intake: Intake, IV Titration 250 Amount Vancomycin 1,250 mg In 250 Sodium Chloride 0.9% 250 ml @ 125 mls/hr IVPB ONCE ONE Rx#:[id number] Oral 240 Output: Stool 2 Other: # Voids 1 1 Weight 74.5 kg Results 12/03/19 06:54 12/03/19 06:54 Cardiac Enzymes 12/03/19 Range/Units 06:54 AST 113 H (14-36) U/L CBC 12/03/19 Range/Units 06:54 WBC 1.8 L (3.8-10.6) k/uL RBC 2.14 L (3.80-5.40) m/uL Hgb 6.8 L* (11.4-16.0) gm/dL Hct 20.7 L (34.0-46.0) % Plt Count 31 L (150-450) k/uL Comprehensive Metabolic Panel 12/03/19 Range/Units 06:54 Sodium 129 L (137-145) mmol/L Potassium 4.2 (3.5-5.1) mmol/L Chloride 87 L (98-107) mmol/L Carbon Dioxide 26 (22-30) mmol/L BUN 75 H (7-17) mg/dL Creatinine 8.44 H* (0.52-1.04) mg/dL Glucose 92 (74-99) mg/dL Calcium 7.7 L (8.4-10.2) mg/dL AST 113 H (14-36) U/L ALT 116 H (4-34) U/L Alkaline Phosphatase 132 H (38-126) U/L Total Protein 5.2 L (6.3-8.2) g/dL Albumin 3.2 L (3.5-5.0) g/dL Current Medications Generic Name Dose Route Start Last Admin Trade Name Freq PRN Reason Stop Dose Admin Hydrocodone Bitart/Acetaminophen 1 each 12/02/19 09:00 12/03/19 08:32 [place] 7.5-325 PO 1 each TID ANNI Administration Albuterol Sulfate 2 puff 12/02/19 12:09 12/03/19 08:50 Ventolin Hfa Inhaler INHALATION 2 puff RT-QID PRN Administration Shortness Of Breath Or Wheezing Aspirin 81 mg 12/02/19 09:00 12/03/19 08:33 Aspirin PO 81 mg DAILY ANNI Administration Atorvastatin Calcium 40 mg 12/02/19 21:00 12/02/19 20:53 Lipitor PO 40 mg HS ANNI Administration Clonidine 0.3 mg 12/02/19 09:00 12/02/19 20:59 Catapres PO 0.3 mg TID ANNI Administration Darbepoetin Drew 60 mcg 12/03/19 13:00 Aranesp SQ Q7D ANNI Famotidine 20 mg 12/04/19 09:00 Pepcid PO DAILY [facility] Furosemide 80 mg 12/02/19 09:00 12/03/19 08:33 Lasix PO 80 mg BID@0900,1600 ANNI Administration Gabapentin 100 mg 12/02/19 09:00 12/03/19 08:33 Neurontin PO 100 mg TID ANNI Administration Hydralazine HCl 100 mg 12/02/19 09:00 12/02/19 20:59 Apresoline PO 100 mg TID ANNI Administration Ceftriaxone Sodium 1 gm/ 50 mls @ 100 mls/hr 12/02/19 21:00 12/02/19 20:54 Sodium Chloride IVPB 100 mls/hr Q24H ANNI Administration Insulin Aspart 0 unit 12/02/19 12:30 12/03/19 12:53 Novolog SQ 3 unit ACHS ANNI Administration Protocol Insulin Aspart 18 unit 12/02/19 12:30 12/03/19 12:54 Novolog SQ 18 unit AC-TID ANNI Administration Insulin Detemir 20 unit 12/02/19 09:00 12/03/19 08:34 Levemir SQ 20 unit BID@0700,2100 [facility] Administration Ketotifen Fumarate 1 drops 12/02/19 09:00 12/03/19 08:34 Zaditor BOTH EYES 1 drops BID [facility] Administration Labetalol HCl 400 mg 12/02/19 09:00 12/02/19 20:54 Trandate PO 400 mg BID ANNI Administration Lidocaine/Prilocaine 1 applic 12/03/19 12:00 Emla Cream 2.5%/2.5% TOPICAL [facility] Miscellaneous Information 1 each 12/02/19 06:53 Pharmacy To Dose Iv Vancomycin MISCELLANE DIRECTED PRN Per Protocol Protocol Montelukast Sodium 10 mg 12/02/19 09:00 12/03/19 08:33 Singulair PO 10 mg DAILY ANNI Administration Pantoprazole Sodium 40 mg 12/04/19 07:30 Protonix PO AC-BRKFST [facility] Prochlorperazine Maleate 5 mg 12/02/19 08:51 Compazine PO BID PRN Nausea Ropinirole HCl 1 mg 12/02/19 09:00 12/03/19 08:33 Requip PO 1 mg TID [facility] Administration Sevelamer Carbonate 800 mg 12/02/19 08:51 Renvela PO DAILY PRN SNACKS Sevelamer Carbonate 2,400 mg 12/02/19 12:30 12/03/19 12:52 Renvela PO 2,400 mg AC-TID ANNI Administration Sodium Polystyrene Sulfonate 15 gm 12/02/19 09:00 12/02/19 10:45 Kayexalate PO 15 gm SUMOWEFR ANNI Administration Tiotropium [place] 1 puff 12/02/19 12:12 12/03/19 08:50 Spiriva INHALATION 1 puff RT-DAILY PRN Administration Wheezing Intake and Output 12/02/19 12/03/19 12/03/19 22:59 06:59 14:59 Intake Total 490 Output Total 2 Balance 488 Intake: Intake, IV Titration 250 Amount Vancomycin 1,250 mg In 250 Sodium Chloride 0.9% 250 ml @ 125 mls/hr IVPB ONCE ONE Rx#:[id number] Oral 240 Output: Stool 2 Other: # Voids 1 1 Weight 74.5 kg 12/03/19 06:54 12/03/19 06:54
[2019-12-03] MEDS: hydrALAZINE HCL 50 MG TAB PO SCH ×3 (17:06→21:15)
[2019-12-03] MEDS: cloNIDine HCL 0.1 MG TAB PO SCH ×3 (17:06→21:15)
[2019-12-03] MEDS: LABETALOL 200 MG TAB PO SCH ×2 (17:07→21:16)
[2019-12-03 17:50] LABS: Glucose,Whole Blood 75 mg/dL (75-99)
[2019-12-03 18:25] LABS: Glucose,Whole Blood 92 mg/dL (75-99)
[2019-12-03 19:24] LABS: Glucose,Whole Blood 139 mg/dL (75-99)
[2019-12-03 20:24] LABS: Glucose,Whole Blood 153 mg/dL (75-99)
[2019-12-03] MEDS: ATORVASTATIN 40 MG TAB PO SCH (21:15)
[2019-12-03] MEDS: PROCHLORPERAZINE 5 MG TAB PO PRN (21:18)
--- NOTE | 2019-12-03 22:44 | PN ---
PROGRESS NOTE DATE OF SERVICE: 12/03/2019 REASON FOR FOLLOW UP: Sepsis and Staph aureus bacteremia. INTERVAL HISTORY: Patient is currently afebrile. The patient is breathing comfortably. Denies having any chest pain or shortness of breath or cough. No nausea, vomiting. No abdominal pain or diarrhea. PHYSICAL EXAMINATION: Blood pressure 141/65 with a pulse of 75, temperature 98.4. She is 95% on 2 L nasal cannula. General description is a middle-aged female lying in bed in no distress. Respiratory system: Unlabored breathing. Clear to auscultation anteriorly. Heart S1, S2 regular rate and rhythm. Abdomen soft, no tenderness. Left arm AV fistula site currently no significant redness or any drainage. LABS: Hemoglobin is 6.1, white count 1.8. BUN of 75, creatinine 8.44. DIAGNOSTIC IMPRESSION AND PLAN: Patient with sepsis, source MRSA bacteremia and related to her recent of left arm AV fistula. She is on vancomycin to continue. Blood cultures will be repeated to document clearance of bacteremia and monitor clinical course closely. MMODL / IJN: [id number] /
--- NOTE | 2019-12-03 23:52 | P.CONS ---
History of Present Illness - Reason for Consult Consult date: 12/03/19 Pancytopenia, Fever - History of Present Illness Patient is a 54-year-old white female, with multiple medical problems in cluding end-stage renal disease on dialysis. The patient has a long-standing history of pancytopenia going back more than 10 years. She has been seen by Dr. De in the past and has had 2 bone marrows in 2009 and 2010 which were overall negative other than showing some mildly dyspoietic changes. She was also seen by at [facility] and states that she was told that there is no specific intervention recommended. It is felt that she has underlying pancytopenia due to the degree of myelodysplasia, with further exacerbation due to her hemodialysis. In addition in association with acute illnesses her counts tend to decline further from baseline but then and to return to baseline as she recovers. She was last seen in consult in 12/27 and had repeat pancytopenia workup and on that was negative, other than showing mild elevation of kappa/Lambda ratio. The patient was admitted this time with complains of weakness, mild productive cough, shortness of breath and fever with some chills started soon after hemodialysis. The patient in the ER was 103.2. Blood culture subsequently grew methicillin resistant staph aureus. Blood counts on admission showed hemoglobin in the 8 range, platelets in the 50 range, and WBC at 4.1. Today hemoglobin declined to 6.8, platelets were 31, and WBC to 1.8, with ANC however greater than 1000. Consult was therefore placed a further evaluation and recommendations. The patient denied any obvious bleeding. She denied any alcohol use. She has not seen Dr. Arguelles for almost 2 years now. Review of Systems Constitutional: Reports chills, Reports fatigue, Reports fever, Reports weakness Eyes: denies blurred vision, denies pain Ears: deny: decreased hearing, ear discharge, earache, tinnitus Ears, nose, mouth and throat: Denies headache, Denies sore throat Cardiovascular: Reports dyspnea on exertion Respiratory: Reports dyspnea Gastrointestinal: Denies abdominal pain, Denies diarrhea, Denies nausea, Denies vomiting Genitourinary: Reports as per HPI Menstruation: Reports postmenopausal Musculoskeletal: Reports muscle weakness Integumentary: Denies pruritus, Denies rash Neurological: Reports weakness Psychiatric: Denies anxiety, Denies depression Endocrine: Reports fatigue Hematologic/Lymphatic: Reports as per HPI Past Medical History Past Medical History: Blood Disorder, Heart Failure, Diabetes Mellitus, Dialysis, Hyperlipidemia, Hypertension, Liver Disease, Pneumonia, Renal Disease Additional Past Medical History / Comment(s): Bilateral cataracts, recently diagnosed with bilateral retinal hemorrhages, hypertriglyceridemia-induced acute pancreatitis, THEN necrotizing pancreatitis. hemodialysis for acute kidney injury 2 months in 2009 after pancreatic OR, 11/2015 diagnosed w/ chronic kidney disease-hemodialysis -last hemodialysis 06/02/19, IDDM type II, past DKA, pt states she has dry heaves day after dialysis, UTI, chronic anemia, f requent body cramping, occasional low back pain, carter's palsy x2, past L leg fx, possible liver disease-recent liver bx-results unknown per pt. History of Any Multi-Drug Resistant Organisms: None Reported Past Surgical History: Orthopedic Surgery, Uterine Ablation Additional Past Surgical History / Comment(s): Recent liver biopsy done at [facility] but pt states they have never contacted her with the results, 08/26/17 colonoscopy with polypectomy/bx, pancreatic resection at [facility] 2009, bone marrow biopsies X2-last one 05/19/16,. dialysis chest port x 2 with removals, Left arm shunt placement for dialysis - December 2015 and a revision done with shunt. Left forearm Vein Revision - October 2019 Past Anesthesia/Blood Transfusion Reactions: No Reported Reaction Additional Past Anesthesia/Blood Transfusion Reaction / Comm: Pt has received blood transfusions without reaction. Past Psychological History: No Psychological Hx Reported Additional Psychological History / Comment(s): Pt resides at her mother in laws home at this time with spouse. They are her mother in laws caretakers. She is independent. She uses no assistive device. She drives. Smoking Status: Never smoker Past Alcohol Use History: None Reported Additional Past Alcohol Use History / Comment(s): Patient is a lifelong nonsmoker. Past Drug Use History: None Reported - Past Family History Brother(s) Family Medical History: No Reported History Mother Family Medical History: Cancer Additional Family Medical History / Comment(s): . Father Family Medical History: Hypertension Additional Family Medical History / Comment(s): alcoholism Medications and Allergies Home Medications Medication Instructions Recorded Confirmed Type Cyclobenzaprine [Flexeril] 5 mg PO HS 09/14/15 12/02/19 History cloNIDine HCL 0.3 mg PO TID 12/16/16 12/02/19 History Sevelamer [Renvela] 800 mg PO DAILY PRN 08/21/17 12/02/19 History Furosemide [Lasix] 80 mg PO BID 10/22/17 12/02/19 History Prochlorperazine [Compazine] 5 mg PO BID PRN 10/26/17 12/02/19 History Sevelamer [Renvela] 2,400 mg PO AC-TID 03/13/18 12/02/19 History Gabapentin [Neurontin] 100 mg PO TID 05/17/18 12/02/19 History INSULIN LISPRO (humaLOG) [humaLOG] 18 unit SQ AC-TID 07/12/18 12/02/19 History Omeprazole 20 mg PO BID 11/01/18 12/02/19 History Lidocaine-Prilocaine Cream [Emla 1 applic TOPICAL TUTHSA 11/21/18 12/02/19 History Cream 2.5%/2.5%] rOPINIRole HCL [Requip] 1 mg PO TID 12/01/18 12/02/19 History hydrALAZINE HCL [Apresoline] 100 mg PO TID 12/14/18 12/02/19 History Aspirin EC [Ecotrin Low Dose] 81 mg PO DAILY #30 tablet.dr 12/17/18 12/02/19 Rx Labetalol [Trandate] 400 mg PO BID #120 tab 12/17/18 12/02/19 Rx NIFEdipine XL [Procardia XL] 90 mg PO DAILY #30 tab.er.24 12/17/18 12/02/19 Rx diazePAM [Valium] 5 mg PO BID PRN 01/21/19 12/02/19 History Albuterol Sulfate [Ventolin HFA] 1 - 2 puff INHALATION RT-BID 05/23/19 12/02/19 History Ascorbic Acid [Vitamin C] 500 mg PO DAILY 11/08/19 12/02/19 History Atorvastatin [Lipitor] 40 mg PO HS 11/08/19 12/02/19 History HYDROcodone/APAP 7.5-325MG [[place] 1 tab PO TID 11/08/19 12/02/19 History 7.5-325] INSULIN LISPRO (humaLOG) [humaLOG] See Protocol SQ ACHS 11/08/19 12/02/19 History Montelukast [Singulair] 10 mg PO DAILY 11/08/19 12/02/19 History Olopatadine HCl [Pataday] 1 - 2 drops BOTH EYES BID 11/08/19 12/02/19 History Sodium Polystyrene Sulfonate 15 gm PO SUMOWEFR 11/08/19 12/02/19 History [Kayexalate] Insulin Glargine,Hum.rec.anlog 20 unit SQ BID 12/02/19 12/02/19 History [Basaglely Sampen U-100] Allergies Allergy/AdvReac Type Severity Reaction Status Date / Time ciprofloxacin [From Cipro] AdvReac AFFECTED Verified 12/02/19 08:10 EYESIGHT ciprofloxacin HCl AdvReac AFFECTED Verified 12/02/19 08:10 [From Cipro] EYESIGHT Iodinated Contrast Media AdvReac RENAL Verified 12/02/19 08:10 FAILURE Physical Exam Vitals: Vital Signs Temp Pulse Resp BP Pulse Ox 12/03/19 08:00 98.2 F 66 16 112/54 98 12/03/19 04:00 98.5 F 60 20 107/53 100 12/02/19 23:25 98.1 F 79 20 95/54 99 12/02/19 20:00 98.4 F 71 19 120/58 97 12/02/19 16:33 98 F 70 18 125/60 97 12/02/19 15:57 16 12/02/19 13:00 98.4 F 74 16 119/59 92 L Intake and Output 12/02/19 12/03/19 12/03/19 22:59 06:59 14:59 Intake Total 240 Output Total 2 Balance 238 Intake: Oral 240 Output: Stool 2 Other: # Voids 1 1 Weight 74.5 kg - Constitutional General appearance: no acute distress - EENT Eyes: EOMI, PERRLA ENT: hearing grossly normal, normal oropharynx - Neck Neck: lymphadenopathy Thyroid: bilateral: normal size - Respiratory Respiratory: bilateral: CTA - Cardiovascular Rhythm: regular Heart sounds: normal: S1, S2 Abnormal Heart Sounds: systolic murmur (flow type) - Gastrointestinal General gastrointestinal: normal bowel sounds, soft - Integumentary Integumentary: normal - Neurologic Neurologic: CNII-XII intact - Musculoskeletal AV fistula LUE Musculoskeletal: strength equal bilaterally - Psychiatric Psychiatric: A&O x's 3, appropriate affect Results CBC & Chem 7: 12/03/19 06:54 12/03/19 06:54 Labs: Abnormal Lab Results - Last 24 Hours (Table) 12/02/19 12/02/19 12/02/19 Range/Units 01:57 01:57 16:32 WBC (3.8-10.6) k/uL RBC (3.80-5.40) m/uL Hgb (11.4-16.0) gm/dL Hct (34.0-46.0) % RDW (11.5-15.5) % Plt Count (150-450) k/uL Neutrophils # (Manual) (1.3-7.7) k/uL Lymphocytes # (Manual) (1.0-4.8) k/uL Sodium (137-145) mmol/L Chloride (98-107) mmol/L BUN (7-17) mg/dL Creatinine (0.52-1.04) mg/dL POC Glucose (mg/dL) 210 H (75-99) mg/dL Calcium (8.4-10.2) mg/dL Ferritin 4820.2 H (10.0-291.0) ng/mL AST (14-36) U/L ALT (4-34) U/L Alkaline Phosphatase (38-126) U/L Lactate Dehydrogenase 817 H (313-618) U/L C-Reactive Protein 88.6 H (<10.0) mg/L Total Protein (6.3-8.2) g/dL Albumin (3.5-5.0) g/dL Procalcitonin 11.43 H (0.02-0.09) ng/mL 12/02/19 12/03/19 12/03/19 Range/Units 20:07 06:54 06:54 WBC 1.8 L (3.8-10.6) k/uL RBC 2.14 L (3.80-5.40) m/uL Hgb 6.8 L* (11.4-16.0) gm/dL Hct 20.7 L (34.0-46.0) % RDW 17.2 H (11.5-15.5) % Plt Count 31 L (150-450) k/uL Neutrophils # (Manual) 1.20 L (1.3-7.7) k/uL Lymphocytes # (Manual) 0.20 L (1.0-4.8) k/uL Sodium 129 L (137-145) mmol/L Chloride 87 L (98-107) mmol/L BUN 75 H (7-17) mg/dL Creatinine 8.44 H* (0.52-1.04) mg/dL POC Glucose (mg/dL) 263 H (75-99) mg/dL Calcium 7.7 L (8.4-10.2) mg/dL Ferritin (10.0-291.0) ng/mL AST 113 H (14-36) U/L ALT 116 H (4-34) U/L Alkaline Phosphatase 132 H (38-126) U/L Lactate Dehydrogenase (313-618) U/L C-Reactive Protein (<10.0) mg/L Total Protein 5.2 L (6.3-8.2) g/dL Albumin 3.2 L (3.5-5.0) g/dL Procalcitonin (0.02-0.09) ng/mL 12/03/19 Range/Units 07:35 WBC (3.8-10.6) k/uL RBC (3.80-5.40) m/uL Hgb (11.4-16.0) gm/dL Hct (34.0-46.0) % RDW (11.5-15.5) % Plt Count (150-450) k/uL Neutrophils # (Manual) (1.3-7.7) k/uL Lymphocytes # (Manual) (1.0-4.8) k/uL Sodium (137-145) mmol/L Chloride (98-107) mmol/L BUN (7-17) mg/dL Creatinine (0.52-1.04) mg/dL POC Glucose (mg/dL) 107 H (75-99) mg/dL Calcium (8.4-10.2) mg/dL Ferritin (10.0-291.0) ng/mL AST (14-36) U/L ALT (4-34) U/L Alkaline Phosphatase (38-126) U/L Lactate Dehydrogenase (313-618) U/L C-Reactive Protein (<10.0) mg/L Total Protein (6.3-8.2) g/dL Albumin (3.5-5.0) g/dL Procalcitonin (0.02-0.09) ng/mL Microbiology - Last 24 Hours (Table) 12/02/19 17:06 Blood Culture Gram Stain - Preliminary Blood 12/02/19 17:06 Blood Culture - Final Blood 12/01/19 01:57 Blood Culture Gram Stain - Preliminary Blood Blood Culture - Preliminary Presumptive MRSA 12/02/19 01:57 Blood Culture - Final Blood 12/02/19 05:00 Urine Culture - Preliminary Urine,Voided Comments: Foot xray 10/28 report reviewed Chest x-ray: report reviewed CT scan - chest: report reviewed (CTA from 05/30) Assessment and Plan (1) Pancytopenia Narrative/Plan: This is a chronic issue, with history as described in the HPI. Most likely this is due to underlying dyspoeitic disorder. However at baseline, her counts are consistently in a safe range, and stable. Tyically, she does have drop in counts in the setting of superimposed acute illnesses, with return to baseline on resolution of the same. Pancytopenia w/u has been negative in the past, as noted in the HPI, including in 12/27 ( other than non specific k/l ratio increase) - During this admission, the pt has MRSA bacteremia. Thus the drop in counts is felt to be due to additional acute marrow suppression from the same. - Iron studies show no deficiency. Other cytopenia w/u will be repeated - Monitor counts and supplement with transfusion to keep Hgb > 7, and plt > 10 ( unless there is active bleeding). Growth factors will be used if ANC falls to < 1000 Counts are expected to recover once infection resolves - Case d/w admitting service. It was recommended that only radiated blood products be used for transfusion support Current Visit: No Status: Chronic Priority: Medium Code(s): D61.818 - OTHER PANCYTOPENIA SNOMED Code(s): 394016201 (2) Gram-positive bacteremia Narrative/Plan: ID following. Defer to IM and ID for management Current Visit: Yes Status: Acute Code(s): R78.81 - BACTEREMIA SNOMED Code(s): 272532124185 Plan: Defer to the admitting service and other consultants for management
[2019-12-04] MEDS: SEVELAMER 800 MG TAB PO SCH ×3 (06:10→17:51)
[2019-12-04] MEDS: PROCHLORPERAZINE 5 MG TAB PO PRN ×2 (06:11→21:18)
[2019-12-04] MEDS: PANTOPRAZOLE 40 MG TABLET PO SCH (06:11)
[2019-12-04 07:16] LABS: Glucose,Whole Blood 164 mg/dL (75-99)
[2019-12-04 07:21] LABS: Anisocytosis Slight; HCT 24.3 % (34.0-46.0); HGB 7.9 gm/dL (11.4-16.0); Hypochromasia Slight; MCHC 32.5 g/dL (31.0-37.0); MCV 95.5 fL (80.0-100.0); Macrocytosis Slight; Mean Platelet Volume 9.9; Poikilocytosis Slight; RBC 2.54 m/uL (3.80-5.40); RDW 17.6 % (11.5-15.5); WBC 2.6 k/uL (3.8-10.6)
[2019-12-04 07:25] LABS: Calcium 7.7 mg/dL (8.4-10.2); Platelet Count 49 k/uL (150-450); Potassium 3.6 mmol/L (3.5-5.1)
[2019-12-04 07:30] LABS: Vancomycin,Random 20.7 ug/mL
[2019-12-04] MEDS: INSULIN ASPART (NovoLOG) 100 UNIT/ML VIAL SQ SCH ×7 (08:58→21:19)
--- NOTE | 2019-12-04 09:00 | ECHOF ---
Referral Reason:cardiac murmur MEASUREMENTS -------- HEIGHT: 160.0 cm WEIGHT: 74.4 kg BP: 121/54 IVSd: 1.6 cm (0.6 - 1.1) LVIDd: 4.4 cm (3.9 - 5.3) LVPWd: 1.6 cm (0.6 - 1.1) IVSs: 2.0 cm LVIDs: 2.7 cm LVPWs: 1.9 cm LA Diam: 4.9 cm (2.7 - 3.8) RVIDd: 4.1 cm (< 3.3) LAESV Index (A-L): 46.97 ml/m Ao Diam: 3.3 cm (2.0 - 3.7) AV Cusp: 2.2 cm (1.5 - 2.6) EPSS: 0.7 cm MV E Armando: 1.53 m/s MV DecT: 268 ms MV A Armando: 1.03 m/s MV E/A Ratio: 1.49 AV maxP.49 mmHg AV meanP.92 mmHg RAP: 5.00 mmHg RVSP: 54.59 mmHg MV EF SLOPE: 41.12 mm/s (70 - 150) MV EXCURSION: 12.84 mm (> 18.000) FINDINGS -------- Sinus rhythm. This was a technically adequate study. The left ventricular size is normal. There is moderate concentric left ventricular hypertrophy. O verall left ventricular systolic function is normal with, an EF between 60 - 65 %. The right ventricle is severely enlarged. LA is severely dilated >40 ml/m2 The right atrium is normal in size. Interatrial and interventricular septum intact. There is mild aortic valve sclerosis. The mitral valve leaflets are mildly thickened. Mild mitral annular calcification present. Mild m itral regurgitation is present. Moderate tricuspid regurgitation present. There is moderate to severe pulmonary hypertension. The right ventricular systolic pressure, as measured by Doppler, is 54.59mmHg. Trace/mild (physiologic) pulmonic regurgitation. The aortic root size is normal. IVC Not well visulized. There is a small, generalized pericardial effusion present. CONCLUSIONS -------- 1. The left ventricular size is normal. 2. There is moderate concentric left ventricular hypertrophy. 3. Overall left ventricular systolic function is normal with, an EF between 60 - 65 %. 4. The right ventricle is severely enlarged. 5. LA is severely dilated >40 ml/m2 6. There is mild aortic valve sclerosis. 7. The mitral valve leaflets are mildly thickened. 8. Mild mitral annular calcification present. 9. Mild mitral regurgitation is present. 10. Moderate tricuspid regurgitation present. 11. There is moderate to severe pulmonary hypertension. 12. The right ventricular systolic pressure, as measured by Doppler, is 54.59mmHg. 13. Trace/mild (physiologic) pulmonic regurgitation. 14. There is a small, generalized pericardial effusion present. YARN WINDER: Shama Contreras RDCS
[2019-12-04] MEDS: TIOTROPIUM 18 MCG/PUFF INHALER INHALATION PRN (09:01)
[2019-12-04] MEDS: ALBUTEROL HFA INHALER INHALATION PRN (09:01)
[2019-12-04] MEDS: LABETALOL 200 MG TAB PO SCH ×2 (09:07→20:14)
[2019-12-04] MEDS: cloNIDine HCL 0.1 MG TAB PO SCH ×3 (09:07→20:14)
[2019-12-04] MEDS: HYDROcodone/APAP 7.5-325MG 1 EACH TAB PO SCH ×3 (09:08→21:18)
[2019-12-04] MEDS: FAMOTIDINE 20 MG TAB PO SCH (09:08)
[2019-12-04] MEDS: ASPIRIN 81 MG PO SCH (09:09)
[2019-12-04] MEDS: hydrALAZINE HCL 50 MG TAB PO SCH ×3 (09:09→20:13)
[2019-12-04] MEDS: GABAPENTIN 100 MG CAP PO SCH ×3 (09:09→21:18)
[2019-12-04] MEDS: INSULIN DETEMIR (LEVEMIR) 100 UNIT/ML SYR SQ SCH ×3 (09:09→21:28)
[2019-12-04] MEDS: FUROSEMIDE 80 MG TAB PO SCH ×2 (09:09→17:52)
[2019-12-04] MEDS: MONTELUKAST 10 MG TAB PO SCH (09:09)
[2019-12-04] MEDS: KETOTIFEN 0.025% OPHTH DROPS 5 ML BTL BOTH EYES SCH ×2 (09:13→20:14)
[2019-12-04] MEDS: SODIUM POLYSTYRENE SULFONATE 15 GM/60 ML BOTTLE PO SCH (09:19)
--- NOTE | 2019-12-04 09:52 | P.PN ---
Subjective Progress Note Date: 12/04/19 Principal diagnosis: MRSA bacteremia Generalized weakness and fatigue likely related to above and urinary tract infection, patient has been adequately treated with Rocephin, vancomycin has been added by pharmacy Chronic persistent asthma mild category stable Chronic kidney disease due to end-stage renal failure on hemodialysis Electrolyte imbalance related to hyponatremia Covid 19 testing is pending 12/04/2019, patient seen eval examined during the rounds patient had he modialysis done yesterday feels much better denies any chest pain shortness breath cough or sputum production, awake and alert breathing much comfortably before now compared to before, blood cultures have been positive for MRSA, infectious disease has been following renal services has been following as well, patient remains on IV vancomycin with pharmacy to dose, echocardiogram revealed LV size is normal along with LVH, ejection fraction is 60 and 65%, there is evidence of pulmonary hypertension, RVSP 55, LA is dilated 12/03/2019, patient seen and evaluated examined during rounds she is sitting upright in the bed breathing more comfortably denies any chest pain or shortness of breath, still feeling weakness slightly better now noted blood cultures have been positive for MRSA, urine culture results are pending, ID service has been following, patient hemoglobin is down to 6.8 patient will benefit from unit of packed RBC transfusion with dialysis This is a 54-year-old female with end-stage renal disease on hemodialysis, patient had a hemodialysis yesterday morning, following that she is started complaining fever or generalized weakness and fatigue she had some shortness of breath as well along with occasional cough nonproductive of sputum, due to progressive symptoms patient decided to come into the hospital she was evaluated and has been admitted into the hospital, patient has end-stage renal disease and diabetes as well has been on insulin, also has a history of chronic asthma, has been using bronchodilator as needed otherwise she is on singular, her labs are significant for chronic anemia thrombocytopenia, hyponatremia urine is positive for many bacteria leukocyte history is troponin mildly elevated, covid testing is pending Objective - Vital Signs Vital signs: Vital Signs Temp 98.2 F 12/04/19 08:00 Pulse 66 12/04/19 08:00 Resp 16 12/04/19 08:00 BP 146/67 12/04/19 08:00 Pulse Ox 99 12/04/19 08:00 Intake & Output 12/03/19 12/04/19 12/04/19 18:59 06:59 18:59 Intake Total 1036 Output Total 3002 Balance -1966 Weight 76 kg Intake: Intake, IV Titration 250 Amount Vancomycin 1,250 mg In 250 Sodium Chloride 0.9% 250 ml @ 125 mls/hr IVPB ONCE ONE Rx#:[id number] Oral 476 Blood Product 310 Rc Irr As1 Unit 310 [id number] Output: Stool 2 Hemodialysis 3000 Other: # Voids 1 2 1 - Exam - Constitutional General appearance: cooperative, disheveled - EENT Eyes: EOMI, PERRLA Ears: bilateral: normal - Neck Neck: normal ROM Carotids: bilateral: upstroke normal Thyroid: bilateral: normal size - Respiratory Respiratory: bilateral: CTA - Cardiovascular Rhythm: regular Heart sounds: normal: S1, S2 - Gastrointestinal General gastrointestinal: decreased bowel sounds, soft - Neurologic Neurologic: CNII-XII intact - Musculoskeletal Musculoskeletal: generalized weakness, strength equal bilaterally - Psychiatric Psychiatric: A&O x's 3, appropriate affect, intact judgment & insight - Labs CBC & Chem 7: 12/04/19 05:52 12/04/19 05:52 Labs: Abnormal Lab Results - Last 24 Hours (Table) 12/03/19 12/03/19 12/03/19 Range/Units 11:49 12:44 19:21 WBC (3.8-10.6) k/uL RBC (3.80-5.40) m/uL Hgb (11.4-16.0) gm/dL Hct (34.0-46.0) % RDW (11.5-15.5) % Plt Count (150-450) k/uL Sodium (137-145) mmol/L Chloride (98-107) mmol/L BUN (7-17) mg/dL Creatinine (0.52-1.04) mg/dL Glucose (74-99) mg/dL POC Glucose (mg/dL) 207 H 139 H (75-99) mg/dL Calcium (8.4-10.2) mg/dL Crossmatch See Detail 12/03/19 12/04/19 12/04/19 Range/Units 20:22 05:52 05:52 WBC 2.6 L (3.8-10.6) k/uL RBC 2.54 L (3.80-5.40) m/uL Hgb 7.9 L (11.4-16.0) gm/dL Hct 24.3 L (34.0-46.0) % RDW 17.6 H (11.5-15.5) % Plt Count 49 L D (150-450) k/uL Sodium 127 L (137-145) mmol/L Chloride 88 L (98-107) mmol/L BUN 48 H (7-17) mg/dL Creatinine 5.83 H (0.52-1.04) mg/dL Glucose 153 H (74-99) mg/dL POC Glucose (mg/dL) 153 H (75-99) mg/dL Calcium 7.7 L (8.4-10.2) mg/dL Crossmatch 12/04/19 Range/Units 07:15 WBC (3.8-10.6) k/uL RBC (3.80-5.40) m/uL Hgb (11.4-16.0) gm/dL Hct (34.0-46.0) % RDW (11.5-15.5) % Plt Count (150-450) k/uL Sodium (137-145) mmol/L Chloride (98-107) mmol/L BUN (7-17) mg/dL Creatinine (0.52-1.04) mg/dL Glucose (74-99) mg/dL POC Glucose (mg/dL) 164 H (75-99) mg/dL Calcium (8.4-10.2) mg/dL Crossmatch Microbiology - Last 24 Hours (Table) 12/02/19 05:00 Urine Culture - Final Urine,Voided Citrobacter werkmanii 12/02/19 17:06 Blood Culture Gram Stain - Preliminary Blood Blood Culture - Preliminary Presumptive MRSA 12/01/19 01:57 Blood Culture Gram Stain - Final Blood Blood Culture - Final Methicillin resist S. aureus 12/02/19 17:06 Blood Culture - Final Blood Assessment and Plan Assessment: MRSA bacteremia Chronic anemia status post blood transfusion 1 unit packed RBC Moderate to severe pulmonary hypertension which was seen in December 2018 as well however right heart cath performed next day was normal Anemia likely acute on chronic due to chronic renal failure and ongoing sepsis and bacteremia Generalized weakness and fatigue likely related to above and urinary tract infection, patient has been adequately treated with Rocephin Chronic persistent asthma mild category stable Chronic kidney disease due to end-stage renal failure on hemodialysis Electrolyte imbalance related to hyponatremia Covid 19 testing is pending Plan: Observe patient closely no further workup for pulmonary hypertension needed at this time Continue as needed bronchodilator Broad-spectrum antibiotics along with vancomycin Follow-up on urine and blood culture Time with Patient: Greater than 30
--- NOTE | 2019-12-04 11:12 | PN ---
PROGRESS NOTE Patient is seen for followup for end-stage renal disease. The patient was dialyzed yesterday. We had about 3 L of fluid removed. She was also transfuse packed RBCs for hemoglobin of 6.8 g/dL. No active bleeding noted at this time. Blood cultures are growing MRSA. Repeat blood cultures drawn yesterday have no growth thus far. The patient has an AV fistula and she recently had intervention on her fistula about five days ago. She is being followed by Infectious Disease for the MRSA bacteremia. The patient does not have any other wounds or sores. PHYSICAL EXAMINATION: On examination today, blood pressure was 146/67, heart rate 66 per minute, she is afebrile. Examination of the heart S1, S2. Examination of the lungs, decreased breath sounds at bases. Abdomen is soft, nontender. Examination of lower extremities shows no significant edema, chronic skin changes noted. [employer] exam grossly intact. LABS: Show sodium 127, potassium 3.6, BUN 48, creatinine 5.83, hemoglobin 7.9 g/dL. ASSESSMENT: 1. End-stage renal disease, on hemodialysis on a Thursday, , Thursday schedule. I will dialyze the patient again tomorrow mainly for volume overload. 2. Volume overload, currently improved. We will plan for extra treatment tomorrow for about 2 L. 3. Methicillin-resistant Staphylococcus aureus bacteremia, source is most likely recent intervention or AV fistula as she has no other open wounds or sores. Concern for endocarditis if the patient is persistently bacteremic. 4. Chronic kidney disease mineral bone disorder. 5. Anemia, no active bleeding noted, status post packed RBCs transfusion. Patient should have GI workup as she denies having had EGD previously. We will also maintain her on Aranesp. PLAN: Plan is to continue with Aranesp. Repeat dialysis tomorrow for about 2 hours, mainly for ultrafiltration. Avoid Kayexalate for now. Continue with vancomycin. MMODL / IJN: [id number] /
[2019-12-04 12:07] LABS: Glucose,Whole Blood 292 mg/dL (75-99)
--- NOTE | 2019-12-04 15:01 | P.PN ---
Subjective Progress Note Date: 12/04/19 Patient is a 54-year-old female with a history significant for hypertension, diabetes, and ESRD on dialysis who follows with Dr Tesfaye in the office. She presented to the office with mental status changes, cough, and diarrhea. According to her , she also fell knocking over the television. At that t malu he decided to bring her to the emergency room. The patient states she is doing well this morning and feels as though she has back to her old self. She does have some shortness of breath and fatigue. She denies any chest pain or chest pressure. She states she was able to get up and ambulate to the window without dizziness or lightheadedness. Echocardiogram reveals LV function of 55% with moderate tricuspid regurgitation, moderate LVH and severe pulmonary hypertension GENERAL: This is a 54-year-old female in no apparent distress at the time of my examination. HEENT: Head is atraumatic, normocephalic. Pupils are equal, round. Sclerae anicteric. Conjunctivae are clear. Mucous membranes of the mouth are moist. Neck is supple. There is no jugular venous distention. No carotid bruit is heard. LUNGS: Diminished lung sounds bilaterally. No wheezes, rales or rhonchi. No chest wall tenderness is noted on palpation or with deep breathing. HEART: Regular rate and rhythm. Systolic murmur. No rubs or gallops. S1 and S2 heard. ABDOMEN: Soft, nontender. Bowel sounds are heard. No organomegaly noted. EXTREMITIES: No evidence of peripheral edema and no calf tenderness noted. VASCULAR: Radial and dorsalis pedis pulses palpated, no evidence of clubbing. NEUROLOGIC: Patient is awake, alert and oriented x3. VITALS: Blood pressure 122/58, respiratory rate 16, pulse 62, SpO2 100% on 2 L nasal cannula afebrile TELEMETRY: Sinus rhythm to sinus bradycardia with occasional PACs LABS: WBC 2.6, hemoglobin 7.9, hematocrit 24.3, platelet 17.6, sodium 127, potassium 3.6, BUN 48, creatinine 5.83 IMPRESSION: #1 symptoms malaise, weakness, and fever secondary to MRSA bacteremia #2 ESRD on dialysis, nephrology following #3 abnormal troponins in the setting of sepsis and ESRD #4 hypertension, well controlled #5 diabetes #6 anemia #7 hyponatremia PLAN: Continue current medication regimen. Continue to monitor electrolytes, which will be managed by nephrology. No additional recommendations at this time. The patient has been seen and evaulated. Plan of care has been reviewed and agre ed upon by Dr Perkins. Objective - Vital Signs Vital signs: Vital Signs Temp 98.2 F 12/04/19 08:00 Pulse 62 12/04/19 12:00 Resp 16 12/04/19 12:00 BP 122/58 12/04/19 12:00 Pulse Ox 100 12/04/19 12:00 Intake & Output 12/03/19 12/04/19 12/04/19 18:59 06:59 18:59 Intake Total 1036 Output Total 3002 2 Balance -1966 - Weight 76 kg Intake: Intake, IV Titration 250 Amount Vancomycin 1,250 mg In 250 Sodium Chloride 0.9% 250 ml @ 125 mls/hr IVPB ONCE ONE Rx#:[id number] Oral 476 Blood Product 310 Rc Irr As1 Unit 310 [id number] Output: Stool 2 2 Hemodialysis 3000 Other: # Voids 1 2 1 - Labs CBC & Chem 7: 12/04/19 05:52 12/04/19 05:52 Labs: Abnormal Lab Results - Last 24 Hours (Table) 12/03/19 12/03/19 12/03/19 Range/Units 11:49 19:21 20:22 WBC (3.8-10.6) k/uL RBC (3.80-5.40) m/uL Hgb (11.4-16.0) gm/dL Hct (34.0-46.0) % RDW (11.5-15.5) % Plt Count (150-450) k/uL Sodium (137-145) mmol/L Chloride (98-107) mmol/L BUN (7-17) mg/dL Creatinine (0.52-1.04) mg/dL Glucose (74-99) mg/dL POC Glucose (mg/dL) 139 H 153 H (75-99) mg/dL Calcium (8.4-10.2) mg/dL Crossmatch See Detail 12/04/19 12/04/19 12/04/19 Range/Units 05:52 05:52 07:15 WBC 2.6 L (3.8-10.6) k/uL RBC 2.54 L (3.80-5.40) m/uL Hgb 7.9 L (11.4-16.0) gm/dL Hct 24.3 L (34.0-46.0) % RDW 17.6 H (11.5-15.5) % Plt Count 49 L D (150-450) k/uL Sodium 127 L (137-145) mmol/L Chloride 88 L (98-107) mmol/L BUN 48 H (7-17) mg/dL Creatinine 5.83 H (0.52-1.04) mg/dL Glucose 153 H (74-99) mg/dL POC Glucose (mg/dL) 164 H (75-99) mg/dL Calcium 7.7 L (8.4-10.2) mg/dL Crossmatch 12/04/19 Range/Units 12:06 WBC (3.8-10.6) k/uL RBC (3.80-5.40) m/uL Hgb (11.4-16.0) gm/dL Hct (34.0-46.0) % RDW (11.5-15.5) % Plt Count (150-450) k/uL Sodium (137-145) mmol/L Chloride (98-107) mmol/L BUN (7-17) mg/dL Creatinine (0.52-1.04) mg/dL Glucose (74-99) mg/dL POC Glucose (mg/dL) 292 H (75-99) mg/dL Calcium (8.4-10.2) mg/dL Crossmatch Microbiology - Last 24 Hours (Table) 12/03/19 06:54 Blood Culture - Preliminary Blood No Growth after 24 hours 12/02/19 05:00 Urine Culture - Final Urine,Voided Citrobacter werkmanii 12/02/19 17:06 Blood Culture Gram Stain - Preliminary Blood Blood Culture - Preliminary Presumptive MRSA 12/01/19 01:57 Blood Culture Gram Stain - Final Blood Blood Culture - Final Methicillin resist S. aureus
[2019-12-04 17:37] LABS: Glucose,Whole Blood 91 mg/dL (75-99)
[2019-12-04] MEDS: ATORVASTATIN 40 MG TAB PO SCH (20:14)
[2019-12-04 20:55] LABS: Glucose,Whole Blood 151 mg/dL (75-99)
--- NOTE | 2019-12-04 22:18 | PN ---
PROGRESS NOTE DATE OF SERVICE: 12/04/2019 REASON FOR FOLLOWUP: 1. MRSA bacteremia. 2. Citrobacter urinary tract infection. INTERVAL HISTORY: Patient is currently afebrile. The patient is breathing comfortably, feeling slightly better. Denies having any chest pain or cough. No abdominal pain or diarrhea. PHYSICAL EXAMINATION: Blood pressure is 140/67 with a pulse of 82, temperature 98. She is 100% on room air. General description is a middle-aged female up in the bed in no distress. Respiratory system: Unlabored breathing. Clear to auscultation anteriorly. Heart S1, S2. Regular rate and rhythm. Abdomen soft, no tenderness. LABS: Hemoglobin 7.8, white count 2.2, BUN of 14, creatinine 5.83. Blood cultures 12/01/2019, positive for presumptive MRSA. Blood culture yesterday has been negative so far. DIAGNOSTIC IMPRESSION AND PLAN: Patient with MRSA bacteremia, source is the left arm AV fistula that was recently manipulated at the outside facility. The patient did have an echocardiogram that did not show any evidence of vegetation and the patient is cleared her bacteremia quickly. Recommend continue the patient on vancomycin pharmacy to dose thru the dialysis for at least 2-3 weeks and close outpatient followup. MMODL / IJN: [id number] /
--- NOTE | 2019-12-04 23:39 | PN ---
PROGRESS NOTE A 54-year-old white female with MRSA bacteremia, Citrobacter UTI, slow improvement. Currently afebrile. No chest pain or shortness of breath. Blood pressure is 140s over 60s, pulse is 80s, temp 98, 100% on room air. CARDIOVASCULAR: S1, S2. LUNGS: Clear. GI: Soft. HEMATOLOGY: Negative Homans. Blood cultures positive for MRSA . Blood cultures negative. There is no evidence of vegetations on echo. The patient has cleared her bacteremia quickly. She is going to get 2 or 3 weeks of vancomycin with dialysis. Continue current treatments. The patient possibly will be discharged home tomorrow. MMODL / IJN: [id number] /
[2019-12-05] MEDS: PANTOPRAZOLE 40 MG TABLET PO SCH (06:14)
[2019-12-05] MEDS: SEVELAMER 800 MG TAB PO SCH ×3 (06:14→17:11)
[2019-12-05] MEDS: ALBUTEROL HFA INHALER INHALATION PRN (07:28)
[2019-12-05] MEDS: TIOTROPIUM 18 MCG/PUFF INHALER INHALATION PRN (07:28)
[2019-12-05 07:29] LABS: Glucose,Whole Blood 175 mg/dL (75-99)
[2019-12-05] MEDS: INSULIN ASPART (NovoLOG) 100 UNIT/ML VIAL SQ SCH ×4 (09:25→12:29)
[2019-12-05 09:26] LABS: Albumin 3.3 g/dL (3.5-5.0); Calcium 7.1 mg/dL (8.4-10.2); Potassium 3.8 mmol/L (3.5-5.1); Total Bilirubin 0.7 mg/dL (0.2-1.3); Total Protein 5.2 g/dL (6.3-8.2)
[2019-12-05] MEDS: FUROSEMIDE 80 MG TAB PO SCH ×2 (09:26→17:11)
[2019-12-05] MEDS: ASPIRIN 81 MG PO SCH (09:26)
[2019-12-05] MEDS: FAMOTIDINE 20 MG TAB PO SCH (09:26)
[2019-12-05] MEDS: HYDROcodone/APAP 7.5-325MG 1 EACH TAB PO SCH ×2 (09:27→17:12)
[2019-12-05] MEDS: GABAPENTIN 100 MG CAP PO SCH ×2 (09:27→17:12)
[2019-12-05] MEDS: KETOTIFEN 0.025% OPHTH DROPS 5 ML BTL BOTH EYES SCH (09:28)
[2019-12-05] MEDS: MONTELUKAST 10 MG TAB PO SCH (09:28)
[2019-12-05 09:32] LABS: Anisocytosis Slight; Basophils % (A) 1 %; Eosinophils # (A) 0.1 k/uL (0-0.7); Eosinophils % (A) 4 %; HCT 24.1 % (34.0-46.0); Hypochromasia Slight; Lymphocytes # (A) 0.4 k/uL (1.0-4.8); Lymphocytes % (A) 11 %; MCH 31.7 pg (25.0-35.0); MCHC 33.1 g/dL (31.0-37.0); MCV 95.7 fL (80.0-100.0); Macrocytosis Slight; Mean Platelet Volume 11.1; Monocytes # (A) 0.4 k/uL (0-1.0); Monocytes % (A) 11 %; Neutrophils # (A) 2.3 k/uL (1.3-7.7); Neutrophils % (A) 72 %; Poikilocytosis Slight; RBC 2.52 m/uL (3.80-5.40); RDW 17.7 % (11.5-15.5); WBC 3.2 k/uL (3.8-10.6)
[2019-12-05] MEDS: INSULIN DETEMIR (LEVEMIR) 100 UNIT/ML SYR SQ SCH (09:35)
[2019-12-05 09:37] LABS: Platelet Count 66 k/uL (150-450)
--- NOTE | 2019-12-05 11:26 | P.PN ---
Subjective Patient is seen in follow-up for end-stage renal disease. She is maintained on hemodialysis on Thursday schedule. Getting an extra hemodialysis treatment today mostly for ultrafiltration. Hemoglobin stable. Denies chest pain or shortness of breath. Feels better today. Vital signs are stable. General: The patient appeared well nourished and normally developed. HEENT: Head exam is unremarkable. Neck is without jugular venous distension. LUNGS: Breath sounds decreased. HEART: Rate and Rhythm are regular. ABDOMEN: Soft, nontender. EXTREMITITES: No clubbing, cyanosis, or edema. Objective - Vital Signs Vital signs: Vital Signs Temp 97.7 F 12/05/19 04:00 Pulse 62 12/05/19 04:00 Resp 18 12/05/19 04:00 BP 102/54 12/05/19 04:00 Pulse Ox 98 12/05/19 04:00 Intake & Output 12/04/19 12/05/19 12/05/19 18:59 06:59 18:59 Intake Total 462 236 476 Output Total 2 Balance 460 236 476 Weight 75.5 kg Intake: Oral 462 236 476 Output: Stool 2 Other: # Voids 1 1 1 - Labs CBC & Chem 7: 12/05/19 07:45 12/05/19 07:45 Labs: Abnormal Lab Results - Last 24 Hours (Table) 12/04/19 12/04/19 12/05/19 Range/Units 12:06 20:54 07:28 WBC (3.8-10.6) k/uL RBC (3.80-5.40) m/uL Hgb (11.4-16.0) gm/dL Hct (34.0-46.0) % RDW (11.5-15.5) % Plt Count (150-450) k/uL Lymphocytes # (1.0-4.8) k/uL Sodium (137-145) mmol/L Chloride (98-107) mmol/L BUN (7-17) mg/dL Creatinine (0.52-1.04) mg/dL Glucose (74-99) mg/dL POC Glucose (mg/dL) 292 H 151 H 175 H (75-99) mg/dL Calcium (8.4-10.2) mg/dL AST (14-36) U/L ALT (4-34) U/L Alkaline Phosphatase (38-126) U/L Total Protein (6.3-8.2) g/dL Albumin (3.5-5.0) g/dL 12/05/19 12/05/19 Range/Units 07:45 07:45 WBC 3.2 L (3.8-10.6) k/uL RBC 2.52 L (3.80-5.40) m/uL Hgb 8.0 L (11.4-16.0) gm/dL Hct 24.1 L (34.0-46.0) % RDW 17.7 H (11.5-15.5) % Plt Count 66 L (150-450) k/uL Lymphocytes # 0.4 L (1.0-4.8) k/uL Sodium 127 L (137-145) mmol/L Chloride 87 L (98-107) mmol/L BUN 63 H (7-17) mg/dL Creatinine 7.43 H* (0.52-1.04) mg/dL Glucose 158 H (74-99) mg/dL POC Glucose (mg/dL) (75-99) mg/dL Calcium 7.1 L (8.4-10.2) mg/dL AST 38 H (14-36) U/L ALT 83 H (4-34) U/L Alkaline Phosphatase 151 H (38-126) U/L Total Protein 5.2 L (6.3-8.2) g/dL Albumin 3.3 L (3.5-5.0) g/dL Microbiology - Last 24 Hours (Table) 12/02/19 17:06 Blood Culture Gram Stain - Final Blood Blood Culture - Final Methicillin resist S. aureus 12/03/19 06:54 Blood Culture - Preliminary Blood No Growth after 48 hours 12/02/19 05:00 Urine Culture - Final Urine,Voided Citrobacter gisselleanii Assessment and Plan Plan: Assessment: 1. End-stage renal disease maintained on hemodialysis on Thursday schedule via left upper extremity AV fistula. 2. MRSA bacteremia possibly related to recent AV fistula intervention at an outside facility. Maintained on antibiotics. 3. Hyponatremia secondary to chronic kidney disease. 4. Anemia of chronic kidney disease with underlying dyspoietic disorder. Maintained on Aranesp. 5. UTI. Urine culture positive for Citrobacter maintained on antibiotics. 6. Hypertension with chronic kidney disease. Stable. 7. Insulin-dependent diabetes mellitus. 8. Chronic kidney disease mineral bone disease maintained on Renvela. Plan: Currently seen while undergoing hemodialysis. Another treatment tomorrow per her outpatient schedule. Antibiotics per infectious disease.
[2019-12-05 12:28] LABS: Glucose,Whole Blood 169 mg/dL (75-99)
--- NOTE | 2019-12-05 13:23 | CDI ---
Documentation Clarification Form Date: 12/05/2019 01:12:33 PM From: Kindra Mackey RN, CCDS Admit Date: 12/02/2019 06:54:00 AM Patient Name: Sara Desouza Visit Number: [id number] ATTENTION: The Clinical Documentation Specialists (CDI) and [facility] Coding Staff appreciate your assistance in clarifying documentation. Please respond to the clarification below the line at the bottom and electronically sign. The CDI & [facility] Coding staff will review the response and follow-up if needed. Please note: Queries are made part of the Legal Health Record. If you have any questions, please contact the author of this message via ITS. Dr. David Bragg CHF is documented in the PMH and requires further specificity. History/Risk Factors: ESRD, Chronic anemia, DM2, HTN, Chronic liver disease Clinical Indicators: 12/02 Attending Progress Notes: "heart failure" 12/01 102 Admission VS/Pulse OX: Temp 103.2, HR 96, RR 18, B/P 202/70, spo2 92% ra BNP: not checked 12/02 Echocardiogram Results: Moderate concentric LVH. EF 60-65% 12/02/2019 Chest X Ray:"Coarse lung markings unchanged compared to old exam. Moderate cardiomegaly. Unchanged." Treatment: Lasix 80 mg PO QD In your professional opinion, can you please clarify the acuity and type of CHF if known? Diastolic Heart Failure: Acute Chronic Acute on Chronic Systolic & Diastolic Heart Failure: Acute Chronic Acute on Chronic Heart Failure Unable to Determine Other, please specify (Last Revision: August 2017) MTDD
[2019-12-05 13:33] VITALS: TEMP 97.5
--- NOTE | 2019-12-05 14:04 | P.PN ---
Subjective Progress Note Date: 12/05/19 Principal diagnosis: Pancytopenia In follow-up today patient has no acute complaints, denies fever, cough, difficulty breathing, abdominal pain, diarrhea, dysuria or hematuria. Objective - Vital Signs Vital signs: Vital Signs Temp 97.7 F 12/05/19 04:00 Pulse 62 12/05/19 04:00 Resp 18 12/05/19 04:00 BP 102/54 12/05/19 04:00 Pulse Ox 98 12/05/19 04:00 Intake & Output 12/04/19 12/05/19 12/05/19 18:59 06:59 18:59 Intake Total 462 236 476 Output Total 2 Balance 460 236 476 Weight 75.5 kg Intake: Oral 462 236 476 Output: Stool 2 Other: # Voids 1 1 1 - Constitutional General appearance: Present: cooperative, no acute distress, obese - EENT Eyes: Present: anicteric sclerae, EOMI ENT: Present: hearing grossly normal - Respiratory Respiratory: bilateral: CTA, diminished - Cardiovascular Rhythm: regular Heart sounds: normal: S1, S2 Abnormal Heart Sounds: Absent: systolic murmur, diastolic murmur, rub, S3 Gallop, S4 Gallop, click, other - Peripheral edema leg Peripheral Edema: bilateral: None - Gastrointestinal General gastrointestinal: Present: normal bowel sounds, soft - Neurologic Neurologic: Present: CNII-XII intact - Musculoskeletal Musculoskeletal: Present: strength equal bilaterally - Psychiatric Psychiatric: Present: A&O x's 3, appropriate affect, intact judgment & insight - Labs CBC & Chem 7: 12/05/19 07:45 12/05/19 07:45 Labs: Abnormal Lab Results - Last 24 Hours (Table) 12/04/19 12/04/19 12/05/19 Range/Units 12:06 20:54 07:28 WBC (3.8-10.6) k/uL RBC (3.80-5.40) m/uL Hgb (11.4-16.0) gm/dL Hct (34.0-46.0) % RDW (11.5-15.5) % Plt Count (150-450) k/uL Lymphocytes # (1.0-4.8) k/uL Sodium (137-145) mmol/L Chloride (98-107) mmol/L BUN (7-17) mg/dL Creatinine (0.52-1.04) mg/dL Glucose (74-99) mg/dL POC Glucose (mg/dL) 292 H 151 H 175 H (75-99) mg/dL Calcium (8.4-10.2) mg/dL AST (14-36) U/L ALT (4-34) U/L Alkaline Phosphatase (38-126) U/L Total Protein (6.3-8.2) g/dL Albumin (3.5-5.0) g/dL 12/05/19 12/05/19 Range/Units 07:45 07:45 WBC 3.2 L (3.8-10.6) k/uL RBC 2.52 L (3.80-5.40) m/uL Hgb 8.0 L (11.4-16.0) gm/dL Hct 24.1 L (34.0-46.0) % RDW 17.7 H (11.5-15.5) % Plt Count 66 L (150-450) k/uL Lymphocytes # 0.4 L (1.0-4.8) k/uL Sodium 127 L (137-145) mmol/L Chloride 87 L (98-107) mmol/L BUN 63 H (7-17) mg/dL Creatinine 7.43 H* (0.52-1.04) mg/dL Glucose 158 H (74-99) mg/dL POC Glucose (mg/dL) (75-99) mg/dL Calcium 7.1 L (8.4-10.2) mg/dL AST 38 H (14-36) U/L ALT 83 H (4-34) U/L Alkaline Phosphatase 151 H (38-126) U/L Total Protein 5.2 L (6.3-8.2) g/dL Albumin 3.3 L (3.5-5.0) g/dL Microbiology - Last 24 Hours (Table) 12/02/19 17:06 Blood Culture Gram Stain - Final Blood Blood Culture - Final Methicillin resist S. aureus 12/03/19 06:54 Blood Culture - Preliminary Blood No Growth after 48 hours 12/02/19 05:00 Urine Culture - Final Urine,Voided Citrobacter werkmanii Assessment and Plan (1) Pancytopenia Narrative/Plan: Pancytopenia persists, despite multiple no need for transfusion at this time or growth factor as long as patient's ANC remains greater than 1000. Most of the workup thus far is consistent with inflammation. Still pending several labs for completion of the pancytopenia workup. Patient said today that she does not want to go through another bone marrow biopsy, there were no plans for that at this time. Current Visit: Yes Status: Chronic Priority: Medium Code(s): D61.818 - OTHER PANCYTOPENIA SNOMED Code(s): 594363405
[2019-12-05 14:58] LABS: Glucose,Whole Blood 169 mg/dL (75-99)
--- NOTE | 2019-12-05 16:04 | PN ---
PROGRESS NOTE Sara is a 54-year-old lady with history of end-stage renal disease on hemodialysis, hypertension and diabetes who presented to hospital with mental status changes. An echo revealed moderate left ventricular hypertrophy, severe pulmonary hypertension and normal LV function. We were consulted because of elevated troponin. Patient denies any chest pain. PHYSICAL EXAMINATION: Heart rate is 60 beats per minute. Blood pressure is 102/48, respiratory rate is 18, O2 saturation is 98% on 3 L. There is no jugular venous distention. Chest exam reveals good air entry bilaterally. Heart exam reveals first and second heart sounds. Systolic murmur at the left lower sternal border and S4 is heard. LABS: Show a hemoglobin of 8, potassium is 3.8, creatinine is 7.4, BUN is 63. ASSESSMENT: Elevated troponin secondary to renal failure. PLAN: Continue current measures. MARIANNE / LIDIA: [id number] /
[2019-12-05] MEDS: hydrALAZINE HCL 50 MG TAB PO SCH ×2 (16:52→17:11)
[2019-12-05] MEDS: cloNIDine HCL 0.1 MG TAB PO SCH ×2 (16:52→17:11)
[2019-12-05] MEDS: LABETALOL 200 MG TAB PO SCH (16:53)
[2019-12-05] MEDS ORDERED: VANCOMYCIN 1,000 MG in SODIUM CHLORIDE 0.9% 250 ML IVPB ONE (17:00)
[2019-12-05 17:18] VITALS: BP 173/73; PULSE 79; RESP 16
--- NOTE | 2019-12-05 19:51 | PN ---
PROGRESS NOTE DATE OF SERVICE: 12/05/2019 REASON FOR FOLLOWUP: MRSA bacteremia. Source left arm AV fistula. INTERVAL HISTORY: The patient is currently afebrile. The patient is breathing comfortably. The patient denies having any chest pain or shortness of breath or cough. No nausea or vomiting, abdominal pain or diarrhea. PHYSICAL EXAMINATION: Blood pressure 173/73 with a pulse of 79, temperature 97.5. She is 97% on room air. General description is a middle-aged female lying in bed in no distress. RESPIRATORY SYSTEM: Unlabored breathing. Clear to auscultation anteriorly. HEART: S1, S2. Regular rate and rhythm. ABDOMEN: Soft. No tenderness. Left arm AV fistula site currently with some swelling but no redness. LABS: Hemoglobin 8, white count 3.2, BUN of 63, creatinine 7.43. Blood culture from 12/02 has been negative. DIAGNOSTIC IMPRESSION AND PLAN: Patient with methicillin-resistant Staphylococcus aeruginosa bacteremia; source is likely AV fistula that was recently manipulated at [facility]. The patient cleared her bacteremia. Would recommend at least 3 weeks of IV vancomycin through the dialysis and close outpatient followup. Prescriptions were written for the patient. MMODL / IJN: [id number] /
[2019-12-06 06:58] LABS: Methylmalonic Acid 0.86 umol/L (<0.40)
[2019-12-06 07:41] LABS: Protein, Total 5.5 g/dL (6.2-8.2)
[2019-12-06 10:23] LABS: Albumin 3.35 g/dL (3.80-4.90); Gamma Globulin 0.56 g/dL (0.70-1.50)
--- NOTE | 2019-12-06 10:49 | CDI ---
Documentation Clarification Form 2nd request Date: 12/05/2019 01:12:33 PM From: Kindra Mackey RN, CCDS Admit Date: 12/02/2019 06:54:00 AM Patient Name: Sara Desouza Visit Number: [id number] ATTENTION: The Clinical Documentation Specialists (CDI) and [facility] Coding Staff appreciate your assistance in clarifying documentation. Please respond to the clarification below the line at the bottom and electronically sign. The CDI & [facility] Coding staff will review the response and follow-up if needed. Please note: Queries are made part of the Legal Health Record. If you have any questions, please contact the author of this message via ITS. Dr. David Bragg CHF is documented in the PMH and requires further specificity. History/Risk Factors: ESRD, Chronic anemia, DM2, HTN, Chronic liver disease Clinical Indicators: 12/02 Attending Progress Notes: "heart failure" 12/01 102 Admission VS/Pulse OX: Temp 103.2, HR 96, RR 18, B/P 202/70, spo2 92% ra BNP: not checked 12/02 Echocardiogram Results: Moderate concentric LVH. EF 60-65% 12/02/2019 Chest X Ray:"Coarse lung markings unchanged compared to old exam. Moderate cardiomegaly. Unchanged." Treatment: Lasix 80 mg PO QD In your professional opinion, can you please clarify the acuity and type of CHF if known? Diastolic Heart Failure: Acute Chronic Acute on Chronic Systolic & Diastolic Heart Failure: Acute Chronic Acute on Chronic Heart Failure Unable to Determine Other, please specify (Last Revision: August 2017) MTDD
--- NOTE | 2019-12-07 08:01 | CDI ---
Documentation Clarification Form 3rd request Date: 12/05/2019 01:12:33 PM From: Kindra Mackey RN, CCDS Admit Date: 12/02/2019 06:54:00 AM Patient Name: Sara Desouza Visit Number: [id number] ATTENTION: The Clinical Documentation Specialists (CDI) and [facility] Coding Staff appreciate your assistance in clarifying documentation. Please respond to the clarification below the line at the bottom and electronically sign. The CDI & [facility] Coding staff will review the response and follow-up if needed. Please note: Queries are made part of the Legal Health Record. If you have any questions, please contact the author of this message via ITS. Dr. David Bragg CHF is documented in the PMH and requires further specificity. History/Risk Factors: ESRD, Chronic anemia, DM2, HTN, Chronic liver disease Clinical Indicators: 12/02 Attending Progress Notes: "heart failure" 12/01 102 Admission VS/Pulse OX: Temp 103.2, HR 96, RR 18, B/P 202/70, spo2 92% ra BNP: not checked 12/02 Echocardiogram Results: Moderate concentric LVH. EF 60-65% 12/02/2019 Chest X Ray:"Coarse lung markings unchanged compared to old exam. Moderate cardiomegaly. Unchanged." Treatment: Lasix 80 mg PO QD In your professional opinion, can you please clarify the acuity and type of CHF if known? Diastolic Heart Failure: Acute Chronic Acute on Chronic Systolic & Diastolic Heart Failure: Acute Chronic Acute on Chronic Heart Failure Unable to Determine Other, please specify (Last Revision: August 2017) MTDD
--- NOTE | 2019-12-07 09:28 | DS ---
DISCHARGE SUMMARY ADDENDUM: Acute on chronic diastolic heart failure. MMODL / IJN: [id number] /
== END 2019-12-05 17:33 | disposition home or self-care (01) | DRG 314 ==
LOC: EC 00:56 → 3SCARD 06:54
PROVIDERS: ADMIT Family Medicine; ATTEND Family Medicine
PROC: 30233N1 Transfusion of Nonautologous Red Blood Cells into Peripheral Vein, Percutaneous Approach (ICD-10-PCS; principal; 2019-12-02)
PROC: 5A1D70Z Performance of Urinary Filtration, Intermittent, Less than 6 Hours Per Day (ICD-10-PCS; principal; 2019-12-02)
DX: T82.7XXA Infection and inflammatory reaction due to other cardiac and vascular devices, implants and grafts, initial encounter (principal); A41.02 Sepsis due to Methicillin resistant Staphylococcus aureus; N18.6 End stage renal disease; I50.33 Acute on chronic diastolic (congestive) heart failure; I13.2 Hypertensive heart and chronic kidney disease with heart failure and with stage 5 chronic kidney disease, or end stage renal disease; N39.0 Urinary tract infection, site not specified; E87.1 Hypo-osmolality and hyponatremia; D61.818 Other pancytopenia; I08.3 Combined rheumatic disorders of mitral, aortic and tricuspid valves; R00.1 Bradycardia, unspecified; E83.9 Disorder of mineral metabolism, unspecified; D46.9 Myelodysplastic syndrome, unspecified; E11.22 Type 2 diabetes mellitus with diabetic chronic kidney disease; E78.5 Hyperlipidemia, unspecified; D63.1 Anemia in chronic kidney disease; E78.1 Pure hyperglyceridemia; E86.0 Dehydration; H35.63 Retinal hemorrhage, bilateral; R74.8 Abnormal levels of other serum enzymes; I27.20 Pulmonary hypertension, unspecified; J45.30 Mild persistent asthma, uncomplicated; Z11.59 Encounter for screening for other viral diseases; B96.89 Other specified bacterial agents as the cause of diseases classified elsewhere; R79.89 Other specified abnormal findings of blood chemistry; Y82.9 Unspecified medical devices associated with adverse incidents; Z79.4 Long term (current) use of insulin; Z79.899 Other long term (current) drug therapy; Z79.82 Long term (current) use of aspirin; Z88.1 Allergy status to other antibiotic agents; Z91.041 Radiographic dye allergy status; Z98.42 Cataract extraction status, left eye; Z98.41 Cataract extraction status, right eye; Z87.01 Personal history of pneumonia (recurrent); Z98.890 Other specified postprocedural states; Z87.440 Personal history of urinary (tract) infections; Z87.19 Personal history of other diseases of the digestive system; Z80.9 Family history of malignant neoplasm, unspecified; Z82.49 Family history of ischemic heart disease and other diseases of the circulatory system; Z81.1 Family history of alcohol abuse and dependence; Z99.2 Dependence on renal dialysis
CPT/HCPCS: 36415; 71045; 80048; 80053; 80202; 81001; 82607; 82728; 82747; 83605; 83615; 83883; 83921; 84145; 84165; 84484; 85025; 85027; 85610; 85730; 86140; 86334; 86850; 86900; 86901; 86920; 87040; 87077; 87086; 87186; 90935; 93005; 93306; 94640; 96365; 96366; 96367; 96375; 99285

== ENCOUNTER 2019-12-31 13:33 | Emergency (ER) | payer OTHER ==
[2019-12-31 13:45] VITALS: RESP 18; TEMP 98.3
--- NOTE | 2019-12-31 14:17 | ED ---
General Adult HPI - General Chief complaint: Recheck/Abnormal Lab/Rx Stated complaint: L Arm Injury Time Seen by Provider: 12/31/19 14:05 Source: patient, RN notes reviewed, old records reviewed Mode of arrival: ambulatory Limitations: no limitations - History of Present Illness Initial comments: 54-year-old female patient past medical history including ESRD on hemodialysis presents to ED for evaluation of left AV fistula which has been bleeding off and on Ceftin initial dialysis treatment which concluded about 9:00 this morning. She is denying any other acute complaints at this time. She denies any use of blood thinners states that she just takes a 81 mg aspirin every night. Systemic: Pt denies fatigue, fever/chills, rash. Pt denies weakness, night sweats, weight loss. Neuro: Pt denies headache, visual disturbances, syncope or pre-syncope. HEENT: Pt denies ocular discharge or irritation, otalgia, rhinorrhea, pharyngitis or notable lymphadenopathy. Cardiopulmonary: Pt denies chest pain, SOB, heart palpitations, dyspnea on exertion. Abdominal/GI: Pt denies abdominal pain, n/v/d. : Pt denies dysuria, burning w/ urination, frequency/urgency. Denies new onset urinary or bowel incontinence. MSK: Pt denies myalgia, loss of strength or function in extremities. Neuro: Pt denies new onset weakness, paresthesias. - Related Data Home Medications Medication Instructions Recorded Confirmed Cyclobenzaprine [Flexeril] 5 mg PO HS 09/14/15 12/16/19 cloNIDine HCL 0.3 mg PO TID 12/16/16 12/16/19 Sevelamer [Renvela] 800 mg PO DAILY PRN 08/21/17 12/16/19 Furosemide [Lasix] 80 mg PO BID 10/22/17 12/16/19 Prochlorperazine [Compazine] 5 mg PO BID PRN 10/26/17 12/16/19 Sevelamer [Renvela] 2,400 mg PO AC-TID 03/13/18 12/16/19 Gabapentin [Neurontin] 100 mg PO TID 05/17/18 12/16/19 INSULIN LISPRO (humaLOG) [humaLOG] 18 unit SQ AC-TID 07/12/18 12/16/19 Omeprazole 20 mg PO BID 11/01/18 12/16/19 Lidocaine-Prilocaine Cream [Emla 1 applic TOPICAL TUTHSA 11/21/18 12/16/19 Cream 2.5%/2.5%] rOPINIRole HCL [Requip] 1 mg PO TID 12/01/18 12/16/19 hydrALAZINE HCL [Apresoline] 100 mg PO TID 12/14/18 12/16/19 Albuterol Sulfate [Ventolin HFA] 1 - 2 puff INHALATION RT-BID 05/23/19 12/16/19 Ascorbic Acid [Vitamin C] 500 mg PO DAILY 11/08/19 12/16/19 Atorvastatin [Lipitor] 40 mg PO HS 11/08/19 12/16/19 HYDROcodone/APAP 7.5-325MG [[place] 1 tab PO TID 11/08/19 12/16/19 7.5-325] INSULIN LISPRO (humaLOG) [humaLOG] See Protocol SQ ACHS 11/08/19 12/16/19 Montelukast [Singulair] 10 mg PO DAILY 11/08/19 12/16/19 Olopatadine HCl [Pataday] 1 - 2 drops BOTH EYES BID 11/08/19 12/16/19 Insulin Glargine,Hum.rec.anlog 20 unit SQ BID 12/02/19 12/16/19 [[place] U-100] Previous Rx's Medication Instructions Recorded Aspirin EC [Ecotrin Low Dose] 81 mg PO DAILY #30 tablet. 12/17/18 Labetalol [Trandate] 400 mg PO BID #120 tab 12/17/18 Darbepoetin Drew [Aranesp] 60 mcg SQ Q7D syringe 12/05/19 Tiotropium 18 Mcg/Puff [Spiriva] 1 puff INHALATION RT-DAILY PRN 12/05/19 inhaler Vancomycin 1,000 mg IVPB ONCE vial 12/05/19 Allergies Allergy/AdvReac Type Severity Reaction Status Date / Time ciprofloxacin [From Cipro] AdvReac AFFECTED Verified 12/31/19 13:46 EYESIGHT ciprofloxacin HCl AdvReac AFFECTED Verified 12/31/19 13:46 [From Cipro] EYESIGHT Iodinated Contrast Media AdvReac RENAL Verified 12/31/19 13:46 FAILURE Review of Systems ROS Statement: Those systems with pertinent positive or pertinent negative responses have been documented in the HPI. ROS Other: All systems not noted in ROS Statement are negative. 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 hemodialysis for acute kidney injury 2 months in 2009 after pancreatic OR, 11/2015 diagnosed w/ chronic kidney disease-hemodialysis /-last hemodialysis 06/02/19, IDDM type II, past DKA, pt states she has dry heaves day after dialysis, UTI, chronic anemia, frequent body cramping, occasional low back pain, carter's palsy x2, past L leg fx, possible liver disease-recent liver bx-results unknown per pt. History of Any Multi-Drug Resistant Organisms: MRSA Date of last positivie culture/infection: 12/01/19 MDRO Source:: BLOOD MRSA Past Surgical History: Orthopedic Surgery, Uterine Ablation Additional Past Surgical History / Comment(s): Recent liver biopsy done at [facility] [place] but pt states they have never contacted her with the results, 08/26/17 colonoscopy with polypectomy/bx, pancreatic resection at [facility] 2009, bone marrow biopsies X2-last one 05/19/16,. dialysis chest port x 2 with removals, Left arm shunt placement for dialysis - December 2015 and a revision done with shunt. Left forearm Vein Revision - October 2019 Past Anesthesia/Blood Transfusion Reactions: No Reported Reaction Additional Past Anesthesia/Blood Transfusion Reaction / Comment(s): Pt has received blood transfusions without reaction. Past Psychological History: No Psychological Hx Reported Smoking Status: Never smoker Past Alcohol Use History: None Reported Past Drug Use History: None Reported - Past Family History Brother(s) Family Medical History: No Reported History Mother Family Medical History: Cancer Additional Family Medical History / Comment(s): . Father Family Medical History: Hypertension Additional Family Medical History / Comment(s): alcoholism General Exam - General Exam Comments Initial Comments: Constitutional: NAD, AOX3, Pt has pleasant affect. HEENT: NC/AT, trachea midline, neck supple, no lymphadenopathy. External ears appear normal, without discharge. Mucous membranes moist. EOM intact. There is no scleral icterus. No pallor noted. Cardiopulmonary: RRR, no murmurs, rubs or gallops, no JVD noted. Lungs CTAB in anterior and posterior jara. No peripheral edema. Abdominal exam: Abdomen soft and non-distended. Abdomen non-tender to palpation in all 4 quadrants. Bowel sounds active in LLQ. No Small ecchymosis from insulin injection per patient which she states are old. Neuro: CN II-XII grossly intact. No nuchal rigidity. MSK: Full active ROM in upper and lower extremities. AV fistula noted left brachial region. Thrills intact. Small oozing noted from proximal needle inser tion site. Distal pulses intact and equal. Limitations: no limitations Course Vital Signs 12/31/19 13:42 Temperature 98.3 F Pulse Rate 74 Respiratory 18 Rate Blood Pressure 178/71 O2 Sat by Pulse 98 Oximetry Medical Decision Making - Medical Decision Making 54-year-old female patient yesterday and hemodialysis presents ED for evaluation of a fistula oozing blood after her treatment today. Physical exam does display a small ooze of blood from the AV fistula on the left brachial region. Lymph investigations were obtained patient denies any blood thinners. CBC is around baseline for patient. Correlation studies are within normal limits. Hemostasis was achieved with Gelfoam and pressure dressing. Patient was discharged to follow up with PCP tomorrow and return here if any worsening symptoms. Case discussed with Dr. Holm. - Lab Data Result diagrams: 12/31/19 14:26 Lab Results 12/31/19 12/31/19 Range/Units 14:26 14:26 WBC 2.4 L (3.8-10.6) k/uL RBC 2.54 L (3.80-5.40) m/uL Hgb 7.9 L (11.4-16.0) gm/dL Hct 24.8 L (34.0-46.0) % MCV 97.5 (80.0-100.0) fL MCH 31.0 (25.0-35.0) pg MCHC 31.7 (31.0-37.0) g/dL RDW 17.5 H (11.5-15.5) % Plt Count 97 L (150-450) k/uL Neutrophils % 77 % Lymphocytes % 9 % Monocytes % 11 % Eosinophils % 2 % Basophils % 0 % Neutrophils # 1.9 (1.3-7.7) k/uL Lymphocytes # 0.2 L (1.0-4.8) k/uL Monocytes # 0.3 (0-1.0) k/uL Eosinophils # 0.1 (0-0.7) k/uL Basophils # 0.0 (0-0.2) k/uL Manual Slide Review Performed RBC Morphology Normal Hypochromasia Slight Anisocytosis Slight Macrocytosis Slight PT 10.9 (9.0-12.0) sec INR 1.1 (<1.2) APTT 24.1 (22.0-30.0) sec Disposition Clinical Impression: ESRD (end stage renal disease) on dialysis Disposition: HOME SELF-CARE Condition: Stable Instructions (If sedation given, give patient instructions): End Stage Kidney Disease (ED) Additional Instructions: Follow-up with primary care provider tomorrow. Return to ER if any worsening symptoms. Is patient prescribed a controlled substance at d/c from ED?: No Referrals: David Bragg MD [Primary Care Provider] - 1-2 days
[2019-12-31 14:45] LABS: INR 1.1 (<1.2); Partial Thromboplastin Time 24.1 sec (22.0-30.0); Prothrombin Time 10.9 sec (9.0-12.0)
[2019-12-31 14:47] LABS: Anisocytosis Slight; Basophils % (A) 0 %; Eosinophils # (A) 0.1 k/uL (0-0.7); Eosinophils % (A) 2 %; HCT 24.8 % (34.0-46.0); HGB 7.9 gm/dL (11.4-16.0); Hypochromasia Slight; Lymphocytes # (A) 0.2 k/uL (1.0-4.8); Lymphocytes % (A) 9 %; MCHC 31.7 g/dL (31.0-37.0); MCV 97.5 fL (80.0-100.0); Macrocytosis Slight; Mean Platelet Volume 7.9; Monocytes # (A) 0.3 k/uL (0-1.0); Monocytes % (A) 11 %; Neutrophils # (A) 1.9 k/uL (1.3-7.7); Neutrophils % (A) 77 %; RBC 2.54 m/uL (3.80-5.40); RDW 17.5 % (11.5-15.5); WBC 2.4 k/uL (3.8-10.6)
[2019-12-31] MEDS ORDERED: GELATIN SPONGE,ABSORB (LARGE) 1 EACH SPONGE TOPICAL STA (14:53)
[2019-12-31 15:34] LABS: Platelet Count 97 k/uL (150-450)
[2019-12-31 17:04] VITALS: BP 169/76; PULSE 69
== END 2019-12-31 17:03 | disposition home or self-care (01) ==
LOC: EC 13:33
DX: T82.838A Hemorrhage due to vascular prosthetic devices, implants and grafts, initial encounter (principal); E11.22 Type 2 diabetes mellitus with diabetic chronic kidney disease; E11.10 Type 2 diabetes mellitus with ketoacidosis without coma; E11.36 Type 2 diabetes mellitus with diabetic cataract; I13.2 Hypertensive heart and chronic kidney disease with heart failure and with stage 5 chronic kidney disease, or end stage renal disease; I50.9 Heart failure, unspecified; E78.5 Hyperlipidemia, unspecified; N18.6 End stage renal disease; N17.9 Acute kidney failure, unspecified; Z79.4 Long term (current) use of insulin; Z79.899 Other long term (current) drug therapy; Z91.041 Radiographic dye allergy status; Z88.1 Allergy status to other antibiotic agents; Z99.2 Dependence on renal dialysis
CPT/HCPCS: 36415; 85025; 85610; 85730; 99284

== ENCOUNTER → 2020-01-20 | Outpatient (CLI) | payer OTHER ==
--- NOTE | 2020-01-20 08:10 | CT ---
EXAMINATION TYPE: CT chest wo con DATE OF EXAM: 01/20/2020 COMPARISON: 10/27/2017 HISTORY: chronic cough CT DLP: 401.[address] of the chest was performed with lung and mediastinal window settings submitted. The la ck of contrast limits evaluation of the vascular, mediastinal and parenchymal structures including th e upper abdomen. LUNGS: Areas of groundglass density throughout both lung jara persists although I have improved sin ce prior examination. No atelectasis. No pulmonary nodule or mass is detected. No pleural effusion. No CT evidence of interstitial lung disease. MEDIASTINUM/DANIELITO: Thoracic aorta is of normal caliber with limited evaluation given lack of contrast . The heart is enlarged. There is a large pericardial effusion which which may have decreased sligh tly relative to the prior examination. Coronary artery calcifications. No evidence for mediastinal m ass. No lymph nodes greater than 1cm. UPPER ABDOMEN: Interval development of upper abdominal ascites. OTHER: No significant other abnormality. IMPRESSION: 1. Persistent but improved on nonspecific groundglass densities throughout both lung jara. 2. Persistent but slightly improved and pericardial effusions. Continued cardiomegaly. 3. Abdominal ascites
== END | disposition home or self-care (01) ==
LOC: RADCTMAIN 07:19
PROVIDERS: ATTEND Family Medicine
DX: J98.4 Other disorders of lung (principal); I31.3 Pericardial effusion (noninflammatory); I51.7 Cardiomegaly
CPT/HCPCS: 71250

== ENCOUNTER 2020-01-28 09:32 | Inpatient (IN) | payer OTHER ==
[2020-01-28 09:47] LABS: Glucose,Whole Blood 114 mg/dL (75-99)
[2020-01-28] MEDS ORDERED: NALOXONE 0.4 MG/ML 1 ML VIAL IV PRN (09:53)
--- NOTE | 2020-01-28 09:53 | ED ---
General Adult HPI - General Chief complaint: Recheck/Abnormal Lab/Rx Stated complaint: Recheck Time Seen by Provider: 01/28/20 09:35 Source: patient, RN/MD, EMS, RN notes reviewed Mode of arrival: EMS Limitations: no limitations - History of Present Illness Initial comments: Patient is a pleasant 54-year-old female presenting to the emergency department from transfer from [facility]. I did speak with the transferring physician prior to patient arrival. Patient admits to not eating dinner last night. Patient still did take her insulin. Patient showed up at dialysis with a blood sugar of 32. Patient also had a low blood pressure. Patient also reportedly had a hemoglobin of 7. Patient states she has had a mild cough otherwise has no specific complaints. Patient states she feels really good at this time. No dyspnea. - Related Data Home Medications Medication Instructions Recorded Confirmed Cyclobenzaprine [Flexeril] 5 mg PO HS 09/14/15 12/16/19 cloNIDine HCL 0.3 mg PO TID 12/16/16 12/16/19 Sevelamer [Renvela] 800 mg PO DAILY PRN 08/21/17 12/16/19 Furosemide [Lasix] 80 mg PO BID 10/22/17 12/16/19 Prochlorperazine [Compazine] 5 mg PO BID PRN 10/26/17 12/16/19 Sevelamer [Renvela] 2,400 mg PO AC-TID 03/13/18 12/16/19 Gabapentin [Neurontin] 100 mg PO TID 05/17/18 12/16/19 INSULIN LISPRO (humaLOG) [humaLOG] 18 unit SQ AC-TID 07/12/18 12/16/19 Omeprazole 20 mg PO BID 11/01/18 12/16/19 Lidocaine-Prilocaine Cream [Emla 1 applic TOPICAL TUTHSA 11/21/18 12/16/19 Cream 2.5%/2.5%] rOPINIRole HCL [Requip] 1 mg PO TID 12/01/18 12/16/19 hydrALAZINE HCL [Apresoline] 100 mg PO TID 12/14/18 12/16/19 Albuterol Sulfate [Ventolin HFA] 1 - 2 puff INHALATION RT-BID 05/23/19 12/16/19 Ascorbic Acid [Vitamin C] 500 mg PO DAILY 11/08/19 12/16/19 Atorvastatin [Lipitor] 40 mg PO HS 11/08/19 12/16/19 HYDROcodone/APAP 7.5-325MG [[place] 1 tab PO TID 11/08/19 12/16/19 7.5-325] INSULIN LISPRO (humaLOG) [humaLOG] See Protocol SQ ACHS 11/08/19 12/16/19 Montelukast [Singulair] 10 mg PO DAILY 11/08/19 12/16/19 Olopatadine HCl [Pataday] 1 - 2 drops BOTH EYES BID 11/08/19 12/16/19 Insulin Glargine,Hum.rec.anlog 20 unit SQ BID 12/02/19 12/16/19 [Basaglar [place] U-100] Previous Rx's Medication Instructions Recorded Aspirin EC [Ecotrin Low Dose] 81 mg PO DAILY #30 tablet. 12/17/18 Labetalol [Trandate] 400 mg PO BID #120 tab 12/17/18 Darbepoetin Drew [Aranesp] 60 mcg SQ Q7D syringe 12/05/19 Tiotropium 18 Mcg/Puff [Spiriva] 1 puff INHALATION RT-DAILY PRN 12/05/19 inhaler Vancomycin 1,000 mg IVPB ONCE vial 12/05/19 Allergies Allergy/AdvReac Type Severity Reaction Status Date / Time ciprofloxacin [From Cipro] AdvReac AFFECTED Verified 01/28/20 09:33 EYESIGHT ciprofloxacin HCl AdvReac AFFECTED Verified 01/28/20 09:33 [From Cipro] EYESIGHT Iodinated Contrast Media AdvReac RENAL Verified 01/28/20 09:33 FAILURE Review of Systems ROS Statement: Those systems with pertinent positive or pertinent negative responses have been documented in the HPI. ROS Other: All systems not noted in ROS Statement are negative. Constitutional: Denies: fever Eyes: Denies: eye pain ENT: Denies: ear pain Respiratory: Reports: as per HPI, cough. 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 hemodialysis for acute kidney injury 2 months in 2009 after pancreatic OR, 11/2015 diagnosed w/ chronic kidney disease-hemodialysis /-last hemodialysis 06/02/19, IDDM type II, past DKA, pt states she has dry heaves day after dialysis, UTI, chronic anemia, frequent body cramping, occasional low back pain, carter's palsy x2, past L leg fx, possible liver disease-recent liver bx-results unknown per pt. History of Any Multi-Drug Resistant Organisms: MRSA Date of last positivie culture/infection: 12/01/19 MDRO Source:: BLOOD MRSA Past Surgical History: Orthopedic Surgery, Uterine Ablation Additional Past Surgical History / Comment(s): Recent liver biopsy done at [facility] but pt states they have never contacted her with the results, 08/26/17 colonoscopy with polypectomy/bx, pancreatic resection at [facility] 2009, bone marrow biopsies X2-last one 05/19/16,. dialysis chest port x 2 with removals, Left arm shunt placement for dialysis - December 2015 and a revision done with shunt. Left forearm Vein Revision - October 2019 Past Anesthesia/Blood Transfusion Reactions: No Reported Reaction Additional Past Anesthesia/Blood Transfusion Reaction / Comment(s): Pt has received blood transfusions without reaction. Past Psychological History: No Psychological Hx Reported Smoking Status: Never smoker Past Alcohol Use History: None Reported Past Drug Use History: None Reported - Past Family History Brother(s) Family Medical History: No Reported History Mother Family Medical History: Cancer Additional Family Medical History / Comment(s): . Father Family Medical History: Hypertension Additional Family Medical History / Comment(s): alcoholism General Exam Limitations: no limitations General appearance: alert, in no apparent distress Head exam: Present: normocephalic Eye exam: Present: normal appearance Neck exam: Present: normal inspection Respiratory exam: Present: normal lung sounds bilaterally Cardiovascular Exam: Present: regular rate, normal rhythm GI/Abdominal exam: Present: soft. Absent: tenderness Extremities exam: Present: normal inspection, other (Craft left arm) Neurological exam: Present: alert Psychiatric exam: Present: normal affect, normal mood Skin exam: Present: normal color Course Vital Signs 01/28/20 09:33 Temperature 99.6 F Pulse Rate 74 Respiratory 16 Rate Blood Pressure 126/62 O2 Sat by Pulse 100 Oximetry Medical Decision Making - Medical Decision Making Patient updated on plan. Case was discussed with Dr. Bragg who will admit his patient. - Lab Data Lab Results 01/28/20 Range/Units 09:40 POC Glucose (mg/dL) 114 H (75-99) mg/dL POC Glu Advertising Consultant ID Janie Mccoy - Radiology Data Radiology results: image reviewed (Chest x-ray shows cardiac megaly without acute process) Disposition Clinical Impression: Hypoglycemia, Hyperkalemia, ESRD (end stage renal disease) on dialysis Disposition: ADMITTED IP TO THIS HOSP Is patient prescribed a controlled substance at d/c from ED?: No Referrals: David Bragg MD [Primary Care Provider] - 1-2 days Decision Time: 09:53
[2020-01-28] MEDS: SODIUM CHLORIDE 0.9% 1,000 ML IV SCH ×2 (10:03→10:07)
--- NOTE | 2020-01-28 10:05 | XR ---
EXAMINATION TYPE: XR chest 2V DATE OF EXAM: 01/28/2020 COMPARISON: Chest CT January 20, 2020. Chest x-ray December 02, 2019. HISTORY: Cough and fatigue. TECHNIQUE: Frontal and lateral views of the chest are obtained. FINDINGS: There is no new suspicious focal air space opacity, pleural effusion, or pneumothorax seen . The cardiac silhouette size is within stable and markedly enlarged. The osseous structures are i ntact. IMPRESSION: Cardiomegaly without suspicious new acute pulmonary process.
[2020-01-28] MEDS ORDERED: PROCHLORPERAZINE 5 MG TAB PO PRN (11:36)
[2020-01-28] MEDS ORDERED: SEVELAMER 800 MG TAB PO PRN (11:36)
[2020-01-28] MEDS ORDERED: DARBEPOETIN ALFA 60 MCG/0.3 ML SYRINGE SQ SCH (11:45)
[2020-01-28] MEDS: HYDROcodone/APAP 7.5-325MG 1 EACH TAB PO SCH ×2 (14:17→21:22)
[2020-01-28 14:24] LABS: Glucose,Whole Blood 146 mg/dL (75-99)
[2020-01-28] MEDS: LIDOCAINE-PRILOCAINE 2.5-2.5% CREAM 5 GM TUBE TOPICAL SCH (14:25)
[2020-01-28] MEDS: SEVELAMER 800 MG TAB PO SCH ×2 (14:27→17:28)
[2020-01-28] MEDS ORDERED: MORPHINE SULFATE 2 MG/ML SYRINGE IVP PRN ×2 (16:06→16:15)
[2020-01-28] MEDS: GABAPENTIN 100 MG CAP PO SCH ×2 (16:19→21:22)
[2020-01-28] MEDS: cloNIDine HCL 0.1 MG TAB PO SCH ×2 (16:22→22:38)
[2020-01-28] MEDS: hydrALAZINE HCL 50 MG TAB PO SCH ×2 (16:22→21:22)
--- NOTE | 2020-01-28 16:28 | HP ---
HISTORY AND PHYSICAL A 54-year-old white female presents to the hospital with hypoglycemia after not eating and drinking for 12 to 18 hours, but took her insulin. She had a sugar of 232. She was transferred down here. She is complaining of left-sided abdominal pain which is new onset and some diarrhea and possibly some dehydration. She looks weak and fatigued. We are going to admit her, give her fluids. Do a CT scan of her abdomen. Urine culture. MEDICATIONS: Home medicines: Flexeril 5 mg at night, clonidine 0.3 t.i.d. Renvela daily 800 daily, Lasix 80 mg b.i.d., Compazine 5 mg b.i.d., Renvela 2400 mg a.c. t.i.d., Neurontin 100 t.i.d., Humalog she takes 18 units t.i.d. she states she took 20 units last night even though she did not eat, omeprazole 20 mg b.i.d., EMLA cream daily, Apresoline 100 t.i.d., Requip 1 mg t.i.d., Ventolin HFA p.r.n., Lipitor 40 daily, [place] 7.5 t.i.d., Humalog 5 mg a.c., q.h.s., Singulair 10 mg daily, Pataday 1-2 drops both eyes b.i.d., Basaglar Quick Pen 20 units b.i.d. ALLERGIES: CIPRO, IODINE. REVIEW OF SYSTEMS: Fourteen-point review of systems negative except for mentioned in HPI. PAST MEDICAL HISTORY: End-stage renal disease, heart failure, diabetes mellitus, dyslipidemia, hypertension, liver disease, pneumonia, renal disease, bilateral cataracts, bilateral retinal hemorrhages, insulin-dependent diabetes mellitus, dyslipidemia, gastroparesis. PAST SURGICAL HISTORY: Orthopedic surgery, uterine ablation, history of MRSA, colonoscopy, polypectomy, pancreatic resection, bone marrow biopsies x2, dialysis chest port x2. FAMILY HISTORY: Brother, mother with cancer. Father with hypertension, alcoholism. PHYSICAL EXAMINATION: Temperature 96.6, pulse 70 to 74, respiratory rate 16 to 18, blood pressure 120s over 60s, O2 100%. CARDIOVASCULAR S1, S2. GI soft, nontender. EXTREMITIES: No cyanosis, clubbing, edema. NEUROLOGIC: Alert and oriented x3. PSYCH: Fair mood and affect. SKIN: Warm, dry, and color. NECK is supple. No mass. Chest x-ray shows cardiomegaly. ASSESSMENT: 1. Left-sided abdominal pain. Check CT scan of the abdomen. Check urine cultures. Check lipase. 2. Hypoglycemia secondary to poor oral intake. 3. Insulin-dependent diabetes mellitus. 4. Hyperkalemia. 5. End-stage renal disease acute on chronic. 6. Anemia. 7. Dyslipidemia. 8. Hypertension. 9. Diastolic congestive heart failure. 10.Asthma. Continue current treatment. Medications as above. Just give her Accu-Chek protocol. Hold her insulin until she starts eating better and then put her on Accu-Chek protocol and restart Lantus when she starts eating. Cut down her regular insulin sliding scale. She had taken 18 units plus scale at home and we are going to cut that way down to at least 10 units plus scale when she goes home. MMCHAIM / DARVINN: [id number] /
[2020-01-28 17:23] LABS: Glucose,Whole Blood 103 mg/dL (75-99)
[2020-01-28] MEDS: INSULIN ASPART (NovoLOG) 100 UNIT/ML VIAL SQ SCH ×2 (17:30→21:23)
--- NOTE | 2020-01-28 18:43 | CT ---
EXAMINATION TYPE: CT abdomen pelvis wo con DATE OF EXAM: 01/28/2020 HISTORY: ABDOMEN PAIN CT DLP: 741 mGycm. Automated Exposure Control for Dose Reduction was Utilized. TECHNIQUE: CT scan of the abdomen and pelvis is performed without oral or IV contrast. COMPARISON: CT abdomen and pelvis July 18, 2014. MRI liver April 22, 2017. FINDINGS: Within the limitations of a non-contrast study, the following observations are made. LUNG BASES: New moderate to large size pericardial effusion up to around 4 to 5 cm in thickness righ t and posterior inferior aspect. Calcification at level of the mitral valve redemonstrated. LIVER/GB: Liver remains mildly enlarged with lobulated peripheral contour. Small amount of new surrou nding ascites superior and anterior aspect. Gallbladder has distended margins without CT dense intral uminal gallstones or surrounding fat stranding. PANCREAS: There is poor visualization of pancreas on noncontrast study. Some atrophy is felt present. SPLEEN: Persistent marked splenomegaly at 24 cm craniocaudal dimension coronal image 63. Findings sim ilar to prior MRI. ADRENALS: Slight thickening to both adrenal glands favoring benign lipid rich hyperplasia. KIDNEYS: Increased diminished size and atrophy to both kidneys versus prior studies. Significant smal l vessel calcified plaque consistent with history of long standing chronic medical renal disease. BOWEL: No suspicious dilatation. GENITAL ORGANS: Anteverted uterus. LYMPH NODES: No greater than 1cm abdominal or pelvic lymph nodes are appreciated. OSSEOUS STRUCTURES: Moderate to severe disc space narrowing lumbosacral junction. OTHER: Small amount of right infracolic ascites. Moderate to large amount of pelvic ascites surrounding uterus. IMPRESSION: Stable hepatosplenomegaly. New small amount of abdominal ascites. New moderate to large a mount of pelvic ascites. End-stage chronic medical renal disease noted with interval progression. No bowel obstruction.
[2020-01-28 20:41] LABS: Glucose,Whole Blood 216 mg/dL (75-99)
[2020-01-28] MEDS ORDERED: INSULIN DETEMIR (LEVEMIR) 100 UNIT/ML SYR SQ SCH (21:00)
[2020-01-28] MEDS: LABETALOL 200 MG TAB PO SCH (21:22)
[2020-01-28] MEDS: FUROSEMIDE 80 MG TAB PO SCH (21:22)
[2020-01-28] MEDS: CYCLOBENZAPRINE 5 MG TAB PO SCH (21:22)
[2020-01-28] MEDS: ATORVASTATIN 40 MG TAB PO SCH (21:22)
[2020-01-28 22:21] LABS: Amorphous Sediment,Urine Rare /hpf; Appearance,Urine Turbid (Clear); Bacteria,Urine Few /hpf; Bilirubin,Urine Negative (Negative); Blood,Urine Small (Negative); Color,Urine Yellow; Glucose,Urine (UA) Negative (Negative); Ketones,Urine Negative (Negative); Leukocyte Esterase,Urine Large (Negative); Nitrite,Urine Negative (Negative); PH, Urine 8.5 (5.0-8.0); Protein,Urine 3+ (Negative); RBC,Urine 12 /hpf (0-5); Specific Gravity,Urine 1.012 (1.001-1.035); Squamous Epithelial Cell,Urine 65 /hpf (0-4); Urobilinogen,Urine <2.0 mg/dL (<2.0); WBC,Urine 119 /hpf (0-5)
[2020-01-28 23:23] LABS: Amylase 22 U/L (23-121)
[2020-01-29 02:02] LABS: Glucose,Whole Blood 144 mg/dL (75-99)
[2020-01-29] MEDS: INSULIN ASPART (NovoLOG) 100 UNIT/ML VIAL SQ SCH ×5 (02:07→22:00)
[2020-01-29 06:20] LABS: Anisocytosis Slight; Basophils % (A) 1 %; Eosinophils % (A) 0 %; HCT 23.7 % (34.0-46.0); HGB 7.4 gm/dL (11.4-16.0); Hypochromasia Moderate; Lymphocytes # (A) 0.2 k/uL (1.0-4.8); Lymphocytes % (A) 6 %; MCH 31.1 pg (25.0-35.0); MCHC 31.2 g/dL (31.0-37.0); MCV 99.9 fL (80.0-100.0); Macrocytosis Slight; Mean Platelet Volume 8.3; Monocytes # (A) 0.3 k/uL (0-1.0); Monocytes % (A) 10 %; Neutrophils # (A) 2.1 k/uL (1.3-7.7); Neutrophils % (A) 81 %; RBC 2.37 m/uL (3.80-5.40); RDW 16.8 % (11.5-15.5); WBC 2.6 k/uL (3.8-10.6)
[2020-01-29 06:23] LABS: Platelet Count 58 k/uL (150-450)
[2020-01-29 07:13] LABS: Glucose,Whole Blood 190 mg/dL (75-99)
[2020-01-29] MEDS: PANTOPRAZOLE 40 MG TABLET PO SCH (08:05)
[2020-01-29] MEDS: MONTELUKAST 10 MG TAB PO SCH (08:06)
[2020-01-29] MEDS: SEVELAMER 800 MG TAB PO SCH ×3 (08:06→17:21)
[2020-01-29] MEDS: ASPIRIN 81 MG PO SCH (08:06)
[2020-01-29] MEDS: ASCORBIC ACID 500 MG TAB PO SCH (08:06)
[2020-01-29] MEDS: GABAPENTIN 100 MG CAP PO SCH ×3 (08:06→21:59)
[2020-01-29] MEDS: HYDROcodone/APAP 7.5-325MG 1 EACH TAB PO SCH ×3 (08:07→21:57)
[2020-01-29] MEDS: cloNIDine HCL 0.1 MG TAB PO SCH ×3 (08:10→21:57)
[2020-01-29] MEDS: FUROSEMIDE 80 MG TAB PO SCH ×2 (08:10→21:56)
[2020-01-29] MEDS: LABETALOL 200 MG TAB PO SCH ×2 (08:10→21:55)
[2020-01-29] MEDS: hydrALAZINE HCL 50 MG TAB PO SCH ×3 (08:10→21:59)
[2020-01-29] MEDS: SODIUM CHLORIDE 0.9% 1,000 ML IV SCH (08:11)
[2020-01-29 09:58] LABS: African American GFR (CKD) 8.4 (60.0-200.0); Anion Gap 14.1 mmol/L (4.00-12.00); BUN/Creat Ratio 7.38 Ratio (12.00-20.00); Calcium 9.1 mg/dL (8.7-10.3); Carbon Dioxide 24.9 mmol/L (21.6-31.8); Non-African American GFR(CKD) 7.3 (60.0-200.0); Potassium 5.3 mmol/L (3.5-5.5)
[2020-01-29] MEDS ORDERED: DARBEPOETIN ALFA 60 MCG/0.3 ML SYRINGE SQ SCH (10:15)
[2020-01-29] MEDS ORDERED: guaiFENesin-DM 100-10MG/5ML 10 ML CUP PO PRN (11:19)
[2020-01-29 11:34] LABS: Glucose,Whole Blood 198 mg/dL (75-99)
[2020-01-29 12:50] LABS: Albumin/Globulin Ratio 2.11 (1.60-3.17); Bilirubin, Conjugated 0.4 mg/dL (0.20-0.40); Bilirubin,Unconjugated 0.3 mg/dL; Globulin 1.9 g/dL (1.6-3.3); Total Bilirubin 0.7 mg/dL (0.3-1.2); Total Protein 5.9 g/dL (6.2-8.2)
--- NOTE | 2020-01-29 13:34 | CONS ---
CONSULTATION REASON FOR CONSULT: End-stage renal disease. HISTORY OF PRESENT ILLNESS: Patient is a 54-year-old female with end-stage renal disease, on hemodialysis on a Thursday, , Thursday schedule at [facility]. She was admitted to the hospital with mental status changes. Patient stated that she felt she was drunk. Her mentation was not right. She was forgetting. She was quite forgetful. Her blood sugar was not low when she came in. However, she stated she had low readings at home. No history of fever or chills. Patient did have some loose bowel movements. She did not miss any dialysis as outpatient. CT scan of the abdomen done on admission does not show any significant findings except for ascites. The patient was dialyzed yesterday. We had about 3.5 L of fluid taken off. PAST MEDICAL HISTORY: End-stage renal disease, chronic liver disease, type 2 diabetes, hypertension, CHF, diabetic retinopathy, dyslipidemia, gastroparesis. PAST SURGICAL HISTORY: AV graft, liver biopsy, colonoscopy, polypectomies, multiple angioplasties on the access for dialysis. SOCIAL HISTORY: Negative for smoking, drug abuse or alcohol abuse. MEDICATIONS: Medications prior to admission included Flexeril, clonidine, Renvela, Lasix, Compazine, Neurontin, Requip, hydralazine vitamin C, Lipitor, [place], Singulair, insulin, aspirin, Trandate, Aranesp, vancomycin. ALLERGIES: CIPRO AND IV CONTRAST. REVIEW OF SYSTEMS: As per HPI. Other systems negative. EXAMINATION: Patient is comfortable, awake, alert, oriented x3, not in any acute distress. Blood pressure 141/57, heart rate 87 per minute. She is afebrile. Examination of the heart S1, S2. Examination of the lungs, decreased breath sounds at bases. No crackles or wheezing is heard. ABDOMEN: Soft, distended with ascites. Exam of lower extremities shows edema 1+ bilaterally. [employer] exam is grossly intact. LABS: Show sodium 128, potassium 5.3, serum creatinine 6.1, hemoglobin 7.4 g/dL. ASSESSMENT: 1. End-stage renal disease, on hemodialysis on a Thursday, , Thursday schedule. Status post dialysis yesterday. We will plan for an extra treatment tomorrow for about 2 L mainly for ultrafiltration. 2. Hypervolemic hyponatremia. 3. Anemia, no active bleeding noted, maintain patient on Aranesp. 4. Hypoglycemia. Currently, the blood sugars are not low. 5. CKD mineral bone disorder. PLAN: Maintain patient on Aranesp and a short treatment of hemodialysis in a.m., mostly for ultrafiltration. Thank you for this consultation. We will continue to follow the patient with you during her hospitalization. MMCHAIM / LIDIA: [id number] /
[2020-01-29 16:59] LABS: Glucose,Whole Blood 231 mg/dL (75-99)
[2020-01-29] MEDS ORDERED: CYCLOBENZAPRINE 5 MG TAB PO PRN (17:52)
[2020-01-29] MEDS: IPRATROPIUM 0.5 MG/2.5 ML NEBU INHALATION PRN (19:36)
[2020-01-29 20:20] LABS: Glucose,Whole Blood 209 mg/dL (75-99)
[2020-01-29] MEDS: CYCLOBENZAPRINE 5 MG TAB PO SCH (21:58)
[2020-01-29] MEDS: ATORVASTATIN 40 MG TAB PO SCH (21:58)
[2020-01-29] MEDS: ACETAMINOPHEN TAB 325 MG TAB PO PRN (21:59)
--- NOTE | 2020-01-29 23:37 | PN ---
PROGRESS NOTE A 54-year-old white female with end-stage renal disease. She has increased gallbladder distention, abdominal pelvis CT, and increased abdominal distention with ascites type fluid throughout her belly. Awaiting a consultation with renal physician as well as the liver physician to look at the gallbladder on the studies in the abdomen. She was dialyzed yesterday with 3.5 L taken off. She is going to get more dialysis tomorrow she states. She appears comfortable, alert, oriented x3. No acute distress. Blood pressure is 140s over 50s, heart rate 80s. LUNGS: Show decreased breath sounds at the bases. ABDOMEN: Soft, distended due to obesity. Sodium is 128, potassium 5.3, creatinine 6.1, hemoglobin 7.4. ASSESSMENT: 1. End-stage renal disease. Get an extra treatment to take more fluid off. 2. Hypervolemic, hyponatremia. 3. Acute on chronic anemia, on Aranesp. 4. Hyperglycemia, improved as she started to eat again and we cut down on her sliding scale. 5. Chronic kidney disease mineral bone disorder. Maintain on Aranesp, hemodialysis, monitor hyponatremia, hyperkalemia. Will rule out UTI on the patient. At this time, she is saturating 99% on 2 L. Temp 98.7. Respiratory 17 to 20. Pulse 70s. Continue current treatment. MMODL / IJN: [id number] /
[2020-01-30] MEDS: ACETAMINOPHEN TAB 325 MG TAB PO PRN (02:06)
[2020-01-30 02:09] LABS: Glucose,Whole Blood 231 mg/dL (75-99)
[2020-01-30] MEDS: INSULIN ASPART (NovoLOG) 100 UNIT/ML VIAL SQ SCH ×5 (06:34→21:21)
[2020-01-30 07:28] LABS: Glucose,Whole Blood 192 mg/dL (75-99)
[2020-01-30] MEDS: MONTELUKAST 10 MG TAB PO SCH (07:46)
[2020-01-30] MEDS: ASPIRIN 81 MG PO SCH (07:47)
[2020-01-30] MEDS: SEVELAMER 800 MG TAB PO SCH ×3 (07:47→17:15)
[2020-01-30] MEDS: ASCORBIC ACID 500 MG TAB PO SCH (07:47)
[2020-01-30] MEDS: PANTOPRAZOLE 40 MG TABLET PO SCH (07:47)
[2020-01-30] MEDS: GABAPENTIN 100 MG CAP PO SCH ×3 (07:48→21:19)
[2020-01-30] MEDS: cloNIDine HCL 0.1 MG TAB PO SCH ×3 (07:48→21:20)
[2020-01-30] MEDS: hydrALAZINE HCL 50 MG TAB PO SCH ×3 (07:49→21:20)
[2020-01-30] MEDS: FUROSEMIDE 80 MG TAB PO SCH ×2 (07:49→21:20)
[2020-01-30] MEDS: LABETALOL 200 MG TAB PO SCH ×2 (07:49→21:21)
[2020-01-30] MEDS: HYDROcodone/APAP 7.5-325MG 1 EACH TAB PO SCH ×3 (07:58→21:19)
[2020-01-30] MEDS: IPRATROPIUM 0.5 MG/2.5 ML NEBU INHALATION PRN ×4 (08:51→19:59)
[2020-01-30] MEDS: SODIUM CHLORIDE 0.9% 1,000 ML IV SCH (10:33)
[2020-01-30] MEDS ORDERED: LIDOCAINE-PRILOCAINE 2.5-2.5% CREAM 5 GM TUBE TOPICAL STA (11:26)
--- NOTE | 2020-01-30 11:32 | CDI ---
Documentation Clarification Form Date: 01/30/2020 1129 CDS: Kindra Mackey RN, CCDS Admit Date: 01/29/2020 1521 Patient Name: Sara Desouza ATTENTION: The Clinical Documentation Specialists (CDI) and [facility] Coding Staff appreciate your assistance in clarifying documentation. Please respond to the clarification below the line at the bottom and electronically sign. The CDI & [facility] Coding staff will review the response and follow-up if needed. Please note: Queries are made part of the Legal Health Record. If you have any questions, please contact the author of this message via ITS. Dr. Bragg, Anemia is documented in the (insert date/location of documentation/diagnosis(es) . History/Risk Factors: ESRD on HD, DM2 Clinical indicators: 01/28 Attending Progress note: "Acute on chronic anemia, on Aranesp." 01/28 Nephrology Progress note: "Anemia, no active bleeding noted, maintain patient on Aranesp." 01/29/20 Hemoglobin: 7.4 01/29/20 Hematocrit: 23.7 Treatment: Aranesp 60 mcg AQ Q7 days In order to capture the severity of condition, please clarify the type of anemia and etiology if known:. Acute on chronic blood loss anemia Iron deficiency anemia Nutritional anemia Anemia of chronic kidney disease Unable to determine Other, please specify Please continue to document in your progress notes and discharge summary in order to capture severity of illness and risk of mortality. Include clinical findings that support your diagnosis. MTDD
--- NOTE | 2020-01-30 11:44 | CDI ---
Documentation Clarification Form Date: 01/30/2020 1129 CDS: Kindra Mackey RN, CCDS Admit Date: 01/29/2020 1521 Patient Name: Sara Desouza ATTENTION: The Clinical Documentation Specialists (CDI) and [facility] Coding Staff appreciate your assistance in clarifying documentation. Please respond to the clarification below the line at the bottom and electronically sign. The CDI & [facility] Coding staff will review the response and follow-up if needed. Please note: Queries are made part of the Legal Health Record. If you have any questions, please contact the author of this message via ITS. Dr. Bragg, Diastolic CHF is documented in the H&P an requires acuity. History/Risk Factors: Diastolic CHF, acute on chronic anemia, ESRD on HD, HTN Clinical Indicators: 01/27 933 Admission VS/Pulse OX: Temp 99.6, HR 74, RR 16, B/P 126/62, spo2 100% RA BNP: not checked 12/05/19 Echocardiogram Results: EF 60-65%, moderate concentric LVH, RV is severely enlarged Chest X Ray:"Cardiomegaly without suspicious new acute pulmonary process." Treatment: Lasix 80 mg PO BID Trandate 400 mg PO BID In your professional opinion, can you please clarify the acuity and type of CHF if known? Acute Diastolic Heart Failure Chronic Diastolic Heart Failure Acute on Chronic Diastolic Heart Failure Unable to Determine Other, please specify (Last Revision: August 2017) MTDD
[2020-01-30 11:51] LABS: Glucose,Whole Blood 237 mg/dL (75-99)
--- NOTE | 2020-01-30 13:11 | P.PN ---
Subjective patient is seen in follow-up for end-stage liver disease. She is maintained on hemodialysis on Thursday schedule. Developed a fever last night. no chest pain or shortness of breath. No vomiting or diarrhea. Blood sugars stable. Vital signs are stable. General: The patient appeared well nourished and normally developed. HEENT: Head exam is unremarkable. Neck is without jugular venous distension. LUNGS: Lungs are clear to auscultation and percussion. Breath sounds decreased. HEART: Rate and Rhythm are regular. ABDOMEN: soft, nontender. Mild distention noted. EXTREMITITES: No clubbing, cyanosis, or edema. Objective - Vital Signs Vital signs: Vital Signs Temp 98.4 F 01/30/20 07:00 Pulse 76 01/30/20 12:25 Resp 16 01/30/20 07:00 BP 93/56 01/30/20 07:00 Pulse Ox 100 01/30/20 07:00 Intake & Output 01/29/20 01/30/20 01/30/20 18:59 06:59 18:59 Intake Total 540 320 Output Total 4 Balance 536 320 Intake: Oral 540 320 Output: Urine 4 Other: # Voids 0 # Bowel Movements 1 - Labs CBC & Chem 7: 01/29/20 05:32 01/29/20 05:32 Labs: Abnormal Lab Results - Last 24 Hours (Table) 01/29/20 01/29/20 01/30/20 Range/Units 16:57 20:18 02:08 POC Glucose (mg/dL) 231 H 209 H 231 H (75-99) mg/dL 01/30/20 01/30/20 Range/Units 07:22 11:44 POC Glucose (mg/dL) 192 H 237 H (75-99) mg/dL Microbiology - Last 24 Hours (Table) 01/28/20 14:18 Urine Culture - Final Urine,Voided Assessment and Plan Plan: assessment: 1. End-stage renal disease maintained on hemodialysis on Thursday schedule. 2. Volume overload. 3. Anemia of chronic kidney disease. has required multiple blood transfusions. Maintained on Aranesp. 4. hypertension with chronic kidney disease. 5. Fever. possibly UTI. Rule out bacteremia as she did have MRSA bacteremia in November 2019 related to her access. currently on Rocephin. 6. Chronic kidney disease mineral bone disease maintained on Renvela. 7. Diabetes mellitus. Plan: Short hemodialysis treatment today mostly for ultrafiltration. Another treatment tomorrow per her outpatient schedule. hold clonidine for systolic blood pressure less than 120. follow-up urine culture. Check blood cultures as well.
[2020-01-30] MEDS ORDERED: MIDODRINE 5 MG TAB PO STA (14:10)
[2020-01-30] MEDS: methylPREDNISolone SOD SUCCI 40 MG/ML 1 ML VIAL IV SCH (15:53)
[2020-01-30 17:08] LABS: Glucose,Whole Blood 168 mg/dL (75-99)
[2020-01-30 20:25] LABS: Glucose,Whole Blood 289 mg/dL (75-99)
[2020-01-30] MEDS: CYCLOBENZAPRINE 5 MG TAB PO SCH (21:18)
[2020-01-30] MEDS: ATORVASTATIN 40 MG TAB PO SCH (21:18)
[2020-01-30] MEDS: CARBAMIDE PEROXIDE 6.5% DROPS 15 ML BTL BOTH EARS SCH (21:21)
--- NOTE | 2020-01-30 22:55 | PN ---
PROGRESS NOTE This patient is a 54-year-old white female who was admitted with acute abdominal pain, fluid overload, ascites. CARDIOVASCULAR: S1, S2. LUNGS: Wheezes at the base. GI: Soft. HEMATOLOGY: Negative Homans. PSYCH: Poor mood and affect. Dr. Brian Jones treated her for fluid overload. ASSESSMENT: 1. End-stage renal disease. 2. Fluid overload. 3. Pelvic ascites. Continue current treatment. Possible discharge home in the morning. MMODL / IJN: [id number] /
[2020-01-31] MEDS: methylPREDNISolone SOD SUCCI 40 MG/ML 1 ML VIAL IV SCH ×3 (00:11→16:00)
[2020-01-31 01:59] LABS: Glucose,Whole Blood 327 mg/dL (75-99)
[2020-01-31] MEDS: INSULIN ASPART (NovoLOG) 100 UNIT/ML VIAL SQ SCH ×4 (02:00→17:34)
[2020-01-31 06:11] LABS: Anisocytosis Slight; HCT 23.7 % (34.0-46.0); HGB 7.4 gm/dL (11.4-16.0); Hypochromasia Moderate; MCHC 31.1 g/dL (31.0-37.0); MCV 99.7 fL (80.0-100.0); Macrocytosis Slight; Mean Platelet Volume 10.6; RBC 2.38 m/uL (3.80-5.40); RDW 16.7 % (11.5-15.5); WBC 2.6 k/uL (3.8-10.6)
[2020-01-31 06:18] LABS: Platelet Count 61 k/uL (150-450)
[2020-01-31 07:05] LABS: Glucose,Whole Blood 374 mg/dL (75-99)
[2020-01-31] MEDS: SEVELAMER 800 MG TAB PO SCH ×3 (07:43→17:35)
[2020-01-31] MEDS: PANTOPRAZOLE 40 MG TABLET PO SCH (07:43)
[2020-01-31] MEDS: IPRATROPIUM 0.5 MG/2.5 ML NEBU INHALATION PRN ×2 (08:34→15:57)
[2020-01-31 09:09] LABS: INR 1.19 (0.90-1.11); Prothrombin Time 12.6 sec (9.9-11.9)
[2020-01-31] MEDS: ASPIRIN 81 MG PO SCH (09:22)
[2020-01-31] MEDS: HYDROcodone/APAP 7.5-325MG 1 EACH TAB PO SCH ×2 (09:22→15:59)
[2020-01-31] MEDS: ASCORBIC ACID 500 MG TAB PO SCH (09:22)
[2020-01-31] MEDS: CARBAMIDE PEROXIDE 6.5% DROPS 15 ML BTL BOTH EARS SCH (09:29)
[2020-01-31] MEDS: MONTELUKAST 10 MG TAB PO SCH (09:35)
[2020-01-31] MEDS: GABAPENTIN 100 MG CAP PO SCH ×2 (09:35→15:59)
--- NOTE | 2020-01-31 10:11 | P.PN ---
Subjective patient is seen in follow-up for end-stage liver disease. She is maintained on hemodialysis on Thursday schedule. afebrile. no chest pain or shortness of breath. No vomiting or diarrhea. Blood sugars on the higher side. Vital signs are stable. General: The patient appeared well nourished and normally developed. HEENT: Head exam is unremarkable. Neck is without jugular venous distension. LUNGS: Lungs are clear to auscultation and percussion. Breath sounds decreased. HEART: Rate and Rhythm are regular. ABDOMEN: soft, nontender. Mild distention noted. EXTREMITITES: No clubbing, cyanosis, or edema. Objective - Vital Signs Vital signs: Vital Signs Temp 98.9 F 01/31/20 08:04 Pulse 72 01/31/20 08:47 Resp 18 01/31/20 08:04 BP 140/64 01/31/20 08:04 Pulse Ox 95 01/31/20 08:04 Intake & Output 01/30/20 01/31/20 01/31/20 18:59 06:59 18:59 Intake Total 520 Output Total 3000 Balance -2480 Intake: Oral 520 Output: Hemodialysis 3000 Other: # Voids 1 1 - Labs CBC & Chem 7: 01/31/20 05:52 01/29/20 05:32 Labs: Abnormal Lab Results - Last 24 Hours (Table) 01/30/20 01/30/20 01/30/20 Range/Units 11:44 17:06 20:24 WBC (3.8-10.6) k/uL RBC (3.80-5.40) m/uL Hgb (11.4-16.0) gm/dL Hct (34.0-46.0) % RDW (11.5-15.5) % Plt Count (150-450) k/uL PT (9.9-11.9) sec INR (0.90-1.11) POC Glucose (mg/dL) 237 H 168 H 289 H (75-99) mg/dL 01/31/20 01/31/20 01/31/20 Range/Units 01:57 05:52 05:52 WBC 2.6 L (3.8-10.6) k/uL RBC 2.38 L (3.80-5.40) m/uL Hgb 7.4 L (11.4-16.0) gm/dL Hct 23.7 L (34.0-46.0) % RDW 16.7 H (11.5-15.5) % Plt Count 61 L (150-450) k/uL PT 12.6 H (9.9-11.9) sec INR 1.19 H (0.90-1.11) POC Glucose (mg/dL) 327 H (75-99) mg/dL 01/31/20 Range/Units 07:01 WBC (3.8-10.6) k/uL RBC (3.80-5.40) m/uL Hgb (11.4-16.0) gm/dL Hct (34.0-46.0) % RDW (11.5-15.5) % Plt Count (150-450) k/uL PT (9.9-11.9) sec INR (0.90-1.11) POC Glucose (mg/dL) 374 H (75-99) mg/dL Microbiology - Last 24 Hours (Table) 01/28/20 14:18 Urine Culture - Final Urine,Voided Assessment and Plan Plan: assessment: 1. End-stage renal disease maintained on hemodialysis on Thursday schedule. 2. Volume overload. 3. Anemia of chronic kidney disease. has required multiple blood transfusions. Maintained on Aranesp. 4. hypertension with chronic kidney disease. controlled. 5. Fever. possibly UTI. Rule out bacteremia as she did have MRSA bacteremia in November 2019 related to her access. currently on Rocephin. 6. Chronic kidney disease mineral bone disease maintained on Renvela. 7. Diabetes mellitus. Plan: currently seen while undergoing hemodialysis. hold clonidine for systolic blood pressure less than 120. follow-up cultures.
[2020-01-31 10:17] LABS: African American GFR (CKD) 7.4 (60.0-200.0); Albumin 3.7 g/dL (3.80-4.90); Albumin/Globulin Ratio 1.76 (1.60-3.17); Anion Gap 14.3 mmol/L (4.00-12.00); BUN/Creat Ratio 8.68 Ratio (12.00-20.00); Carbon Dioxide 23.7 mmol/L (21.6-31.8); Globulin 2.1 g/dL (1.6-3.3); Non-African American GFR(CKD) 6.4 (60.0-200.0); Total Bilirubin 0.4 mg/dL (0.3-1.2); Total Protein 5.8 g/dL (6.2-8.2)
--- NOTE | 2020-01-31 11:00 | P.CONS ---
History of Present Illness - Reason for Consult Consult date: 01/30/20 Ascites Requesting physician: David Bragg - Chief Complaint Transfer from [facility] seen for low blood sugars and blood pressur - History of Present Illness 54-year-old female with a medical history significant for end-stage renal disease on hemodialysis, necrotizing pancreatitis, diabetes mellitus, liver disease, hypertension with presentation to the hospital as a transfer from [place] where she was evaluated for hypotension and low blood sugars. The pat ient previously hospitalized with necrotizing pancreatitis. She had computed tomography scan of the abdomen on current presentation showing hepatomegaly as well as a small amount of abdominal and pelvic ascites. Previously she underwent endoscopic evaluation with EGD and colonoscopy in 05/2019 with findings of antral gastritis and internal and external hemorrhoids with aborted colonoscopy. On current presentation WBC 2.6, hemoglobin 7.4, platelet count 58,000 with total bilirubin 0.7, alkaline phosphatase 89, AST 31 and ALT 17. Review of Systems REVIEW OF SYSTEMS: CONSTITUTIONAL: Denies any fevers, chills, weight change or fatigue. CARDIOVASCULAR: Denies any chest pain, palpitations, but has been noted to have low blood pressures at hemodialysis RESPIRATORY: Denies any shortness of breath, hemoptysis or cough. GENITOURINARY: No dysuria or hematuria. MUSCULOSKELETAL: No weakness reported. SKIN: Denies any new rashes or lesions, jaundice or pallor. PSYCHIATRIC: Denies any depression or anxiety. NEUROLOGY: Denies headache, denies any new focal deficits. EARS/NOSE/THROAT: No recent hearing change, congestion, nasal discharge or sore throat. EYES: No pain in eyes, discharge or change in vision. GASTROINTESTINAL: As per HPI. 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 hemodialysis for acute kidney injury 2 months in 2009 after pancreatic OR, 11/2015 diagnosed w/ chronic kidney disease-hemodialysis -last hemodialysis 06/02/19, IDDM type II, past DKA, pt states she has dry heaves day after dialysis, UTI, chronic anemia, frequent body cramping, occasional low back pain, carter's palsy x2, past L leg fx, possible liver disease-recent liver bx-results unknown per pt. History of Any Multi-Drug Resistant Organisms: MRSA Year Discovered:: 12/01/19 MDRO Source:: BLOOD MRSA Past Surgical History: Orthopedic Surgery, Uterine Ablation Additional Past Surgical History / Comment(s): Recent liver biopsy done at [place] but pt states they have never contacted her with the results, 08/26/17 colonoscopy with polypectomy/bx, pancreatic resection at [facility] 2009, bone marrow biopsies X2-last one 05/19/16,. dialysis chest port x 2 with removals, Left arm shunt placement for dialysis - December 2015 and a revision done with shunt. Left forearm Vein Revision - October 2019 Past Anesthesia/Blood Transfusion Reactions: No Reported Reaction Additional Past Anesthesia/Blood Transfusion Reaction / Comm: Pt has received blood transfusions without reaction. Past Psychological History: No Psychological Hx Reported Additional Psychological History / Comment(s): Pt resides at her mother in laws home at this time with spouse. They are her mother in laws caretakers. She is independent. She uses no assistive device. She drives. Smoking Status: Never smoker Past Alcohol Use History: None Reported Additional Past Alcohol Use History / Comment(s): Patient is a lifelong nonsmoker. Past Drug Use History: None Reported - Past Family History Brother(s) Family Medical History: No Reported History Mother Family Medical History: Cancer Additional Family Medical History / Comment(s): . Father Family Medical History: Hypertension Additional Family Medical History / Comment(s): alcoholism Medications and Allergies Home Medications Medication Instructions Recorded Confirmed Type Cyclobenzaprine [Flexeril] 5 mg PO HS 09/14/15 01/28/20 History cloNIDine HCL 0.3 mg PO TID 12/16/16 01/28/20 History Sevelamer [Renvela] 800 mg PO DAILY PRN 08/21/17 01/28/20 History Furosemide [Lasix] 120 mg PO DAILY 10/22/17 01/28/20 History Prochlorperazine [Compazine] 5 mg PO BID PRN 10/26/17 01/28/20 History Sevelamer [Renvela] 3,200 mg PO AC-TID 03/13/18 01/28/20 History Gabapentin [Neurontin] 100 mg PO TID 05/17/18 01/28/20 History INSULIN LISPRO (humaLOG) [humaLOG] 18 unit SQ QID 07/12/18 01/28/20 History Omeprazole 20 mg PO BID 11/01/18 01/28/20 History Lidocaine-Prilocaine Cream [Emla 1 applic TOPICAL DAILY PRN 11/21/18 01/28/20 History Cream 2.5%/2.5%] hydrALAZINE HCL [Apresoline] 100 mg PO TID 12/14/18 01/28/20 History Aspirin EC [Ecotrin Low Dose] 81 mg PO DAILY #30 tablet.dr 12/17/18 01/28/20 Rx Labetalol [Trandate] 400 mg PO BID #120 tab 12/17/18 01/28/20 Rx Ascorbic Acid [Vitamin C] 500 mg PO DAILY 11/08/19 01/28/20 History Atorvastatin [Lipitor] 40 mg PO HS 11/08/19 01/28/20 History HYDROcodone/APAP 7.5-325MG [[place] 1 tab PO TID 11/08/19 01/28/20 History 7.5-325] Montelukast [Singulair] 10 mg PO DAILY 11/08/19 01/28/20 History Olopatadine HCl [Pataday] 1 drops BOTH EYES BID 11/08/19 01/28/20 History Insulin Glargine,Hum.rec.anlog 80 unit SQ HS 12/02/19 01/28/20 History [Basaglar Kwikpen U-100] Tiotropium 18 Mcg/Puff [Spiriva] 1 puff INHALATION RT-DAILY PRN 12/05/19 01/28/20 Rx inhaler Albuterol Sulfate [Proair Hfa] 2 puff INHALATION RT-Q6H PRN 01/28/20 01/28/20 History Docusate [Colace] 100 mg PO DAILY 01/28/20 01/28/20 History Furosemide [Lasix] 80 mg PO HS 01/28/20 01/28/20 History Sodium Polystyrene Sulfonate 30 gm PO SUMOWEFR 01/28/20 01/28/20 History [Kayexalate] diazePAM [Valium] 5 mg PO DAILY PRN 01/28/20 01/28/20 History rOPINIRole HCL [Requip] 1 mg PO TID 01/28/20 01/28/20 History Allergies Allergy/AdvReac Type Severity Reaction Status Date / Time ciprofloxacin [From Cipro] AdvReac AFFECTED Verified 01/28/20 11:31 EYESIGHT ciprofloxacin HCl AdvReac AFFECTED Verified 01/28/20 11:31 [From Cipro] EYESIGHT Iodinated Contrast Media AdvReac RENAL Verified 01/28/20 11:31 FAILURE Physical Exam Vitals: Vital Signs Temp Pulse Pulse Resp BP Pulse Ox 01/30/20 12:25 76 01/30/20 12:15 76 01/30/20 09:03 72 01/30/20 08:53 72 01/30/20 07:00 98.4 F 64 16 93/56 100 01/30/20 04:00 98.3 F 63 19 96/50 100 01/29/20 23:00 18 01/29/20 19:49 101.1 F H 82 18 120/64 91 L 01/29/20 19:47 76 01/29/20 19:36 80 01/29/20 15:00 98.7 F 70 19 107/62 99 Intake and Output 01/29/20 01/30/20 01/30/20 22:59 06:59 14:59 Intake Total 320 Balance 320 Intake: Oral 320 Other: # Voids 1 0 On physical examination, patient appears comfortable in no apparent distress. HEAD: Normocephalic, atraumatic. EYES: No scleral icterus. No conjunctival injection. MOUTH: No lesions, tongue midline. NECK: Trachea midline, no gross abnormalities. CHEST: Clear to auscultation with no wheezing or rhonchi appreciated. HEART: Regular rate and rhythm. ABDOMEN: Soft, obese. Bowel sounds are positive. No organomegaly. No guarding or rigidity. EXTREMITIES: Bilateral pedal edema. SKIN: No rashes, no jaundice. NEUROLOGIC: Alert and oriented x3. No focal deficits. Results CBC & Chem 7: 01/31/20 05:52 01/29/20 05:32 Labs: Abnormal Lab Results - Last 24 Hours (Table) 01/29/20 01/29/20 01/30/20 Range/Units 16:57 20:18 02:08 POC Glucose (mg/dL) 231 H 209 H 231 H (75-99) mg/dL 01/30/20 01/30/20 Range/Units 07:22 11:44 POC Glucose (mg/dL) 192 H 237 H (75-99) mg/dL Microbiology - Last 24 Hours (Table) 01/28/20 14:18 Urine Culture - Final Urine,Voided CT scan - abdomen: report reviewed (Computed tomography scan of the abdomen with stable vital splenomegaly, new small amounts of abdominal ascites, large pelvic ascites and end-stage chronic medical renal disease) Assessment and Plan (1) Ascites Narrative/Plan: 54-year-old female with multiple medical comorbidities including 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 Computed tomography scan on presentation showed abdominal and pelvic ascites as well as hepatosplenomegaly. Ascites likely multifactorial secondary to alcoholic liver disease as well as fluid overload in a patient with end-stage renal disease. Current Visit: Yes Status: Acute Code(s): R18.8 - OTHER ASCITES SNOMED Code(s): 511642779 (2) ESRD (end stage renal disease) on dialysis Current Visit: Yes Status: Acute Code(s): N18.6 - END STAGE RENAL DISEASE; Z99.2 - DEPENDENCE ON RENAL DIALYSIS SNOMED Code(s): 223995879 Plan: Supportive care Okay for diet as tolerated Pathology service following, defer fluid management to their service Sodium restricted diet Continue diuresis with Lasix therapy Amount of ascites too small for paracentesis at this time Thank you for allowing us to participate in the care of the patient
[2020-01-31 11:03] LABS: Potassium 6.2 mmol/L (3.5-5.5)
[2020-01-31 11:35] LABS: Glucose,Whole Blood 259 mg/dL (75-99)
[2020-01-31 11:43] LABS: Hepatitis A Antibody IgM Non-Reactive (Non-Reactive); Hepatitis B Core IgM Non-Reactive (Non-Reactive); Hepatitis B Surface Antigen Non-Reactive (Non-Reactive); Hepatitis C IgG Antibody Non-Reactive (Non-Reactive)
[2020-01-31] MEDS: hydrALAZINE HCL 50 MG TAB PO SCH ×2 (12:20→15:59)
[2020-01-31] MEDS: SODIUM CHLORIDE 0.9% 1,000 ML IV SCH (12:20)
[2020-01-31] MEDS: LIDOCAINE-PRILOCAINE 2.5-2.5% CREAM 5 GM TUBE TOPICAL SCH (12:21)
[2020-01-31] MEDS: LABETALOL 200 MG TAB PO SCH (12:40)
[2020-01-31] MEDS: FUROSEMIDE 80 MG TAB PO SCH (12:40)
[2020-01-31] MEDS: cloNIDine HCL 0.1 MG TAB PO SCH ×2 (12:40→15:58)
--- NOTE | 2020-01-31 13:47 | P.PN ---
Subjective Progress Note Date: 01/31/20 Principal diagnosis: Ascites The patient was seen and examined at the bedside. Patient is currently receiving dialysis, this is her third day in a row. She denies any abdominal pain, abdominal distention, nausea or vomiting. Objective - Vital Signs Vital signs: Vital Signs Temp 97.6 F 01/31/20 12:44 Pulse 69 01/31/20 12:44 Resp 16 01/31/20 12:44 BP 153/48 01/31/20 12:44 Pulse Ox 95 01/31/20 12:44 Intake & Output 01/30/20 01/31/20 01/31/20 18:59 06:59 18:59 Intake Total 520 Output Total 3000 Balance -2480 Intake: Oral 520 Output: Hemodialysis 3000 Other: # Voids 1 1 - Exam General appearance: The patient is alert, oriented, in no acute distress. HET: Head is normocephalic and atraumatic. Conjunctiva pink. Sclera anicteric. Neck: Supple Abdomen: Soft, nontender, nondistended with bowel sounds. Extremities: Normal skin color and turgor. Nonpitting bilateral pedal edema Skin: No rashes or jaundice noted. Neurological: No focal deficits. Alert and oriented 3. - Labs CBC & Chem 7: 01/31/20 05:52 01/31/20 05:52 Labs: Abnormal Lab Results - Last 24 Hours (Table) 01/30/20 01/30/20 01/31/20 Range/Units 17:06 20:24 01:57 WBC (3.8-10.6) k/uL RBC (3.80-5.40) m/uL Hgb (11.4-16.0) gm/dL Hct (34.0-46.0) % RDW (11.5-15.5) % Plt Count (150-450) k/uL PT (9.9-11.9) sec INR (0.90-1.11) Sodium (135-145) mmol/L Potassium (3.5-5.5) mmol/L Chloride (96-109) mmol/L Anion Gap (4.00-12.00) mmol/L BUN (9.0-27.0) mg/dL Creatinine (0.6-1.5) mg/dL Est GFR (CKD-EPI)AfAm (60.0-200.0) Est GFR (CKD-EPI)NonAf (60.0-200.0) BUN/Creatinine Ratio (12.00-20.00) Ratio Glucose (70-110) mg/dL POC Glucose (mg/dL) 168 H 289 H 327 H (75-99) mg/dL AST (13-35) U/L ALT (8-44) U/L Total Protein (6.2-8.2) g/dL Albumin (3.80-4.90) g/dL 01/31/20 01/31/20 01/31/20 Range/Units 05:52 05:52 05:52 WBC 2.6 L (3.8-10.6) k/uL RBC 2.38 L (3.80-5.40) m/uL Hgb 7.4 L (11.4-16.0) gm/dL Hct 23.7 L (34.0-46.0) % RDW 16.7 H (11.5-15.5) % Plt Count 61 L (150-450) k/uL PT 12.6 H (9.9-11.9) sec INR 1.19 H (0.90-1.11) Sodium 129 L (135-145) mmol/L Potassium 6.2 H* (3.5-5.5) mmol/L Chloride 91 L (96-109) mmol/L Anion Gap 14.30 H (4.00-12.00) mmol/L BUN 59.0 H (9.0-27.0) mg/dL Creatinine 6.8 H (0.6-1.5) mg/dL Est GFR (CKD-EPI)AfAm 7.4 L (60.0-200.0) Est GFR (CKD-EPI)NonAf 6.4 L (60.0-200.0) BUN/Creatinine Ratio 8.68 L (12.00-20.00) Ratio Glucose 347 H (70-110) mg/dL POC Glucose (mg/dL) (75-99) mg/dL AST 133 H (13-35) U/L ALT 230 H (8-44) U/L Total Protein 5.8 L (6.2-8.2) g/dL Albumin 3.70 L (3.80-4.90) g/dL 01/31/20 01/31/20 Range/Units 07:01 11:32 WBC (3.8-10.6) k/uL RBC (3.80-5.40) m/uL Hgb (11.4-16.0) gm/dL Hct (34.0-46.0) % RDW (11.5-15.5) % Plt Count (150-450) k/uL PT (9.9-11.9) sec INR (0.90-1.11) Sodium (135-145) mmol/L Potassium (3.5-5.5) mmol/L Chloride (96-109) mmol/L Anion Gap (4.00-12.00) mmol/L BUN (9.0-27.0) mg/dL Creatinine (0.6-1.5) mg/dL Est GFR (CKD-EPI)AfAm (60.0-200.0) Est GFR (CKD-EPI)NonAf (60.0-200.0) BUN/Creatinine Ratio (12.00-20.00) Ratio Glucose (70-110) mg/dL POC Glucose (mg/dL) 374 H 259 H (75-99) mg/dL AST (13-35) U/L ALT (8-44) U/L Total Protein (6.2-8.2) g/dL Albumin (3.80-4.90) g/dL Microbiology - Last 24 Hours (Table) 01/28/20 14:18 Urine Culture - Final Urine,Voided Assessment and Plan (1) Ascites Narrative/Plan: 54-year-old female with multiple medical comorbidities including 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 Computed tomography scan on presentation showed abdominal and pelvic ascites as well as hepatosplenomegaly. Ascites likely multifactorial secondary to alcoholic liver disease as well as fluid overload in a patient with end-stage renal disease. Mild elevation in AST/ALT today, likely medication related Current Visit: Yes Status: Acute Code(s): R18.8 - OTHER ASCITES SNOMED Code(s): 135162781 (2) ESRD (end stage renal disease) on dialysis Current Visit: Yes Status: Acute Code(s): N18.6 - END STAGE RENAL DISEASE; Z99.2 - DEPENDENCE ON RENAL DIALYSIS SNOMED Code(s): 991701199 Plan: Supportive care Okay for diet as tolerated Nephrology service following, defer fluid management to their service Sodium restricted diet Acute hepatitis panel ordered, reviewed and negative Continue diuresis with Lasix therapy Amount of ascites too small for paracentesis at this time Mild elevation in AST/ALT likely related to medication, Repeat CMP tomorrow Recommend to patient to follow-up outpatient with gastroenterology The impression and plan of care has been dictated as directed. I performed a history and examination of this patient, discussed the same with the dictator. I agree with the dictator's note ,documented as a scribe. Any additional findings or plans will be noted.
[2020-01-31 15:11] VITALS: BP 135/64; RESP 16; TEMP 97.4
[2020-01-31 16:09] VITALS: PULSE 64
[2020-01-31 16:55] LABS: Glucose,Whole Blood 385 mg/dL (75-99)
[2020-01-31] MEDS ORDERED: CIPROFLOXACIN-DEXAMETH 0.3-0.1% DROPS 7.5 ML BTL LEFT EAR SCH ×2 (17:00→21:00)
--- NOTE | 2020-02-02 07:07 | CDI ---
Documentation Clarification Form 2nd Request Date: 01/30/2020 1129 CDS: Kindra Mackey RN, CCDS Admit Date: 01/29/2020 1521 Patient Name: Sara Desouza ATTENTION: The Clinical Documentation Specialists (CDI) and [facility] Coding Staff appreciate your assistance in clarifying documentation. Please respond to the clarification below the line at the bottom and electronically sign. The CDI & [facility] Coding staff will review the response and follow-up if needed. Please note: Queries are made part of the Legal Health Record. If you have any questions, please contact the author of this message via ITS. Dr. Bragg, Diastolic CHF is documented in the H&P and requires acuity. History/Risk Factors: Diastolic CHF, acute on chronic anemia, ESRD on HD, HTN Clinical Indicators: 01/27 933 Admission VS/Pulse OX: Temp 99.6, HR 74, RR 16, B/P 126/62, spo2 100% RA BNP: not checked 12/05/19 Echocardiogram Results: EF 60-65%, moderate concentric LVH, RV is severely enlarged Chest X Ray:"Cardiomegaly without suspicious new acute pulmonary process." Treatment: Lasix 80 mg PO BID Trandate 400 mg PO BID In your professional opinion, can you please clarify the acuity and type of CHF if known? Acute Diastolic Heart Failure Chronic Diastolic Heart Failure Acute on Chronic Diastolic Heart Failure Unable to Determine Other, please specify (Last Revision: August 2017) MTDD
--- NOTE | 2020-02-07 18:00 | CDI ---
Documentation Clarification Form 3rd request Date: 01/30/2020 1129 CDS: Kindra Mackey RN, CCDS Admit Date: 01/29/2020 1521 Patient Name: Sara Desouza ATTENTION: The Clinical Documentation Specialists (CDI) and [facility] Coding Staff appreciate your assistance in clarifying documentation. Please respond to the clarification below the line at the bottom and electronically sign. The CDI & [facility] Coding staff will review the response and follow-up if needed. Please note: Queries are made part of the Legal Health Record. If you have any questions, please contact the author of this message via ITS. Dr. Bragg, Diastolic CHF is documented in the H&P an requires acuity. History/Risk Factors: Diastolic CHF, acute on chronic anemia, ESRD on HD, HTN Clinical Indicators: 01/27 933 Admission VS/Pulse OX: Temp 99.6, HR 74, RR 16, B/P 126/62, spo2 100% RA BNP: not checked 12/05/19 Echocardiogram Results: EF 60-65%, moderate concentric LVH, RV is severely enlarged Chest X Ray:"Cardiomegaly without suspicious new acute pulmonary process." Treatment: Lasix 80 mg PO BID Trandate 400 mg PO BID In your professional opinion, can you please clarify the acuity and type of CHF if known? Acute Diastolic Heart Failure Chronic Diastolic Heart Failure Acute on Chronic Diastolic Heart Failure Unable to Determine Other, please specify (Last Revision: August 2017) MTDD
--- NOTE | 2020-02-19 06:58 | DS ---
DISCHARGE SUMMARY DATE OF ADMISSION: 01/29/2020 DATE OF DISCHARGE: 01/31/2020 DISCHARGE MEDICATIONS: Flexeril 5 mg daily, Clonidine 0.3 mg t.i.d., Renvela 800 mg daily, Lasix 120 daily, Compazine 5 mg b.i.d., Renvela 3200 mg before meals t.i.d., Neurontin 100 t.i.d., Humalog 18 units subcu q.i.d., omeprazole 20 b.i.d., EMLA cream topically daily, hydralazine 100 mg t.i.d., aspirin 81 mg daily, Trandate 400 mg b.i.d., vitamin C 500 mg daily, Lipitor 40 mg daily, [place] 7.5 t.i.d., Singulair 10 mg daily, Pataday eyedrops 1-2 drops b.i.d., Basaglar 80 units subcu daily, Spiriva inhaler 1 puff daily, Requip 1 mg t.i.d., Valium 5 mg daily. Lasix 80 mg daily also. CONDITION: Stable. PROGNOSIS: Guarded. ACTIVITY: Ambulate as tolerated. HOSPITAL COURSE: The patient was admitted with fluid overload, atypical chest pain. This patient had a fluid withdrawn from her for multiple days due to fluid overload. She also had severe hypoglycemia and a hypotension. The patient was seen by the GI physician, Dr. Leach, who recommended ascites, possibly due to alcoholic liver disease or chronic hepatitis, as well as end-stage renal disease. Continue on supportive care, sodium restricted diet, diuresis with Lasix. No need for paracentesis at this time. The patient was stabilized and sent home in stable condition to follow up as an outpatient. MMODL / IJN: [id number] /
--- NOTE | 2020-02-19 07:06 | CDI ---
Documentation Clarification Form 3rd Request Date: 01/30/2020 11:34:00 AM From: Kindra Mackey RN, CCDS Admit Date: 01/29/2020 03:21:00 PM Patient Name: Sara Desouza Visit Number: [id number] Discharge Date: 01/31/2020 05:54:00 PM ATTENTION: The Clinical Documentation Specialists (CDI) and [facility] Coding Staff appreciate your assistance in clarifying documentation. Please respond to the clarification below the line at the bottom and electronically sign. The CDI & [facility] Coding staff will review the response and follow-up if needed. Please note: Queries are made part of the Legal Health Record. If you have any questions, please contact the author of this message via ITS. Dr. David Bragg Diastolic CHF is documented in the H&P an requires acuity. History/Risk Factors: Diastolic CHF, acute on chronic anemia, ESRD on HD, HTN Clinical Indicators: 01/27 933 Admission VS/Pulse OX: Temp 99.6, HR 74, RR 16, B/P 126/62, spo2 100% RA BNP: not checked 12/05/19 Echocardiogram Results: EF 60-65%, moderate concentric LVH, RV is severely enlarged Chest X Ray: "Cardiomegaly without suspicious new acute pulmonary process." Treatment: Lasix 80 mg PO BID Trandate 400 mg PO BID In your professional opinion, can you please clarify the acuity and type of CHF if known? Acute Diastolic Heart Failure Chronic Diastolic Heart Failure Acute on Chronic Diastolic Heart Failure Unable to Determine Other, please specify (Last Revision: August 2017) MTDD
--- NOTE | 2020-02-19 08:51 | PN ---
PROGRESS NOTE ADDENDUM: Please add: Acute on chronic diastolic heart failure. MMODL / IJN: [id number] /
== END 2020-01-31 17:54 | disposition home or self-care (01) | DRG 432 ==
LOC: EC 09:32 → 4SSUR 09:53 → OBSVTOIN 01-29 15:21
PROVIDERS: ADMIT Family Medicine; ATTEND Family Medicine
PROC: 5A1D70Z Performance of Urinary Filtration, Intermittent, Less than 6 Hours Per Day (ICD-10-PCS; principal; 2020-01-28)
DX: K70.11 Alcoholic hepatitis with ascites (principal); N18.6 End stage renal disease; I50.33 Acute on chronic diastolic (congestive) heart failure; I13.2 Hypertensive heart and chronic kidney disease with heart failure and with stage 5 chronic kidney disease, or end stage renal disease; N39.0 Urinary tract infection, site not specified; E87.1 Hypo-osmolality and hyponatremia; E11.649 Type 2 diabetes mellitus with hypoglycemia without coma; D63.1 Anemia in chronic kidney disease; E83.9 Disorder of mineral metabolism, unspecified; E11.319 Type 2 diabetes mellitus with unspecified diabetic retinopathy without macular edema; E11.43 Type 2 diabetes mellitus with diabetic autonomic (poly)neuropathy; E11.22 Type 2 diabetes mellitus with diabetic chronic kidney disease; E11.65 Type 2 diabetes mellitus with hyperglycemia; F10.21 Alcohol dependence, in remission; Z99.2 Dependence on renal dialysis; Z79.4 Long term (current) use of insulin; E87.5 Hyperkalemia; E78.5 Hyperlipidemia, unspecified; E86.0 Dehydration; E78.1 Pure hyperglyceridemia; H26.9 Unspecified cataract; K31.84 Gastroparesis; J45.909 Unspecified asthma, uncomplicated; E66.9 Obesity, unspecified; K64.8 Other hemorrhoids; K82.8 Other specified diseases of gallbladder; K64.4 Residual hemorrhoidal skin tags; Z68.30 Body mass index [BMI] 30.0-30.9, adult; Z79.899 Other long term (current) drug therapy; Z79.82 Long term (current) use of aspirin; Z87.01 Personal history of pneumonia (recurrent); Z87.19 Personal history of other diseases of the digestive system; Z87.440 Personal history of urinary (tract) infections; Z86.14 Personal history of Methicillin resistant Staphylococcus aureus infection; Z98.890 Other specified postprocedural states; Z95.828 Presence of other vascular implants and grafts; Z88.1 Allergy status to other antibiotic agents; Z91.041 Radiographic dye allergy status; Z82.49 Family history of ischemic heart disease and other diseases of the circulatory system; Z80.9 Family history of malignant neoplasm, unspecified; Z81.1 Family history of alcohol abuse and dependence
CPT/HCPCS: 36415; 71046; 74176; 80048; 80053; 80074; 80076; 81001; 82009; 82140; 82150; 83690; 84132; 85025; 85027; 85610; 87040; 87077; 87086; 87186; 90935; 94640; 94760; 99285

== ENCOUNTER 2020-02-01 11:50 | Inpatient (IN) | payer OTHER ==
--- NOTE | 2020-02-01 12:39 | ED ---
General Adult HPI - General Chief complaint: Recheck/Abnormal Lab/Rx Stated complaint: infecton Time Seen by Provider: 02/01/20 12:17 Source: patient, RN notes reviewed Mode of arrival: ambulatory Limitations: no limitations - History of Present Illness Initial comments: Patient is a pleasant 54-year-old female presenting to the emergency department with concern for infection. Patient states she was at dialysis yesterday and blood work was done. Patient states she was contacted today with concerns for infection or blood. Patient states Dr. Jones is aware of this. Patient states otherwise she feels fine. Mild chronic cough that is unchanged. No fever or chills. No urinary symptoms. Patient still does make urine. No abdominal pain or rash. - Related Data Home Medications Medication Instructions Recorded Confirmed Cyclobenzaprine [Flexeril] 5 mg PO HS 09/14/15 01/28/20 cloNIDine HCL 0.3 mg PO TID 12/16/16 01/28/20 Sevelamer [Renvela] 800 mg PO DAILY PRN 08/21/17 01/28/20 Furosemide [Lasix] 120 mg PO DAILY 10/22/17 01/28/20 Prochlorperazine [Compazine] 5 mg PO BID PRN 10/26/17 01/28/20 Sevelamer [Renvela] 3,200 mg PO AC-TID 03/13/18 01/28/20 Gabapentin [Neurontin] 100 mg PO TID 05/17/18 01/28/20 INSULIN LISPRO (humaLOG) [humaLOG] 18 unit SQ QID 07/12/18 01/28/20 Omeprazole 20 mg PO BID 11/01/18 01/28/20 Lidocaine-Prilocaine Cream [Emla 1 applic TOPICAL DAILY PRN 11/21/18 01/28/20 Cream 2.5%/2.5%] hydrALAZINE HCL [Apresoline] 100 mg PO TID 12/14/18 01/28/20 Ascorbic Acid [Vitamin C] 500 mg PO DAILY 11/08/19 01/28/20 Atorvastatin [Lipitor] 40 mg PO HS 11/08/19 01/28/20 HYDROcodone/APAP 7.5-325MG [[place] 1 tab PO TID 11/08/19 01/28/20 7.5-325] Montelukast [Singulair] 10 mg PO DAILY 11/08/19 01/28/20 Olopatadine HCl [Pataday] 1 drops BOTH EYES BID 11/08/19 01/28/20 Insulin Glargine,Hum.rec.anlog 80 unit SQ HS 12/02/19 01/28/20 [Basaglar Kwikpen U-100] Albuterol Sulfate [Proair Hfa] 2 puff INHALATION RT-Q6H PRN 01/28/20 01/28/20 Docusate [Colace] 100 mg PO DAILY 01/28/20 01/28/20 Furosemide [Lasix] 80 mg PO HS 01/28/20 01/28/20 Sodium Polystyrene Sulfonate 30 gm PO SUMOWEFR 01/28/20 01/28/20 [Kayexalate] diazePAM [Valium] 5 mg PO DAILY PRN 01/28/20 01/28/20 rOPINIRole HCL [Requip] 1 mg PO TID 01/28/20 01/28/20 Previous Rx's Medication Instructions Recorded Aspirin EC [Ecotrin Low Dose] 81 mg PO DAILY #30 tablet. 12/17/18 Labetalol [Trandate] 400 mg PO BID #120 tab 12/17/18 Tiotropium 18 Mcg/Puff [Spiriva] 1 puff INHALATION RT-DAILY PRN 12/05/19 inhaler Allergies Allergy/AdvReac Type Severity Reaction Status Date / Time ciprofloxacin [From Cipro] AdvReac AFFECTED Verified 02/01/20 12:07 EYESIGHT ciprofloxacin HCl AdvReac AFFECTED Verified 02/01/20 12:07 [From Cipro] EYESIGHT Iodinated Contrast Media AdvReac RENAL Verified 02/01/20 12:07 FAILURE Review of Systems ROS Statement: Those systems with pertinent positive or pertinent negative responses have been documented in the HPI. ROS Other: All systems not noted in ROS Statement are negative. Constitutional: Denies: fever, chills Eyes: Denies: eye pain ENT: Denies: ear pain Respiratory: Reports: as per HPI. 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 hemodialysis for acute kidney injury 2 months in 2009 after pancreatic OR, 11/2015 diagnosed w/ chronic kidney disease-hemodialysis /-last hemodialysis 06/02/19, IDDM type II, past DKA, pt states she has dry heaves day after dialysis, UTI, chronic anemia, frequent body cramping, occasional low back pain, carter's palsy x2, past L leg fx, possible liver disease-recent liver bx-results unknown per pt. History of Any Multi-Drug Resistant Organisms: MRSA Date of last positivie culture/infection: 12/01/19 MDRO Source:: BLOOD MRSA Past Surgical History: Orthopedic Surgery, Uterine Ablation Additional Past Surgical History / Comment(s): Recent liver biopsy done at [facility] but pt states they have never contacted her with the results, 08/26/17 colonoscopy with polypectomy/bx, pancreatic resection [facility] 2009, bone marrow biopsies X2-last one 05/19/16,. dialysis chest port x 2 with removals, Left arm shunt placement for dialysis - December 2015 and a revision done with shunt. Left forearm Vein Revision - October 2019 Past Anesthesia/Blood Transfusion Reactions: No Reported Reaction Additional Past Anesthesia/Blood Transfusion Reaction / Comment(s): Pt has received blood transfusions without reaction. Past Psychological History: No Psychological Hx Reported Smoking Status: Never smoker Past Alcohol Use History: None Reported Past Drug Use History: None Reported - Past Family History Brother(s) Family Medical History: No Reported History Mother Family Medical History: Cancer Additional Family Medical History / Comment(s): . Father Family Medical History: Hypertension Additional Family Medical History / Comment(s): alcoholism General Exam Limitations: no limitations General appearance: alert, in no apparent distress Head exam: Present: normocephalic Eye exam: Present: normal appearance ENT exam: Present: normal exam Neck exam: Present: normal inspection. Absent: meningismus Respiratory exam: Present: normal lung sounds bilaterally Cardiovascular Exam: Present: regular rate, normal rhythm GI/Abdominal exam: Present: soft. Absent: tenderness Extremities exam: Present: other (Left arm fistula) Neurological exam: Present: alert Psychiatric exam: Present: normal affect, normal mood Skin exam: Present: normal color Course Vital Signs 02/01/20 02/01/20 12:02 13:06 Temperature 97.6 F Pulse Rate 62 Respiratory 18 18 Rate Blood Pressure 134/63 133/64 O2 Sat by Pulse 98 Oximetry EKG Findings - EKG Comments: EKG Findings:: Normal sinus rhythm 64. WI 166. QRS 106. QT 440. QTc 453. Normal axis. Incomplete right bundle-branch block. No acute ST change. Medical Decision Making - Medical Decision Making Patient is aware of plan. Case discussed with Dr. Bragg, who will admit his patient. Case also discussed with Dr. Jones, who will consult. He also request infectious disease consult and vancomycin. - Lab Data Result diagrams: 02/01/20 12:59 02/01/20 12:59 Lab Results 02/01/20 02/01/20 02/01/20 Range/Units 12:59 12:59 12:59 WBC 6.0 (3.8-10.6) k/uL RBC 2.57 L (3.80-5.40) m/uL Hgb 7.9 L (11.4-16.0) gm/dL Hct 25.5 L (34.0-46.0) % MCV 99.0 (80.0-100.0) fL MCH 30.9 (25.0-35.0) pg MCHC 31.2 (31.0-37.0) g/dL RDW 16.5 H (11.5-15.5) % Plt Count 109 L D (150-450) k/uL Neutrophils % 83 % Lymphocytes % 6 % Monocytes % 8 % Eosinophils % 0 % Basophils % 1 % Neutrophils # 5.0 (1.3-7.7) k/uL Lymphocytes # 0.3 L (1.0-4.8) k/uL Monocytes # 0.5 (0-1.0) k/uL Eosinophils # 0.0 (0-0.7) k/uL Basophils # 0.0 (0-0.2) k/uL Hypochromasia Moderate Anisocytosis Slight Macrocytosis Slight PT 11.2 (9.0-12.0) sec INR 1.1 (<1.2) APTT 20.8 L (22.0-30.0) sec Sodium 129 L (137-145) mmol/L Potassium 5.1 (3.5-5.1) mmol/L Chloride 94 L (98-107) mmol/L Carbon Dioxide 20 L (22-30) mmol/L Anion Gap 15 mmol/L BUN 67 H (7-17) mg/dL Creatinine 6.23 H (0.52-1.04) mg/dL Est GFR (CKD-EPI)AfAm 8 (>60 ml/min/1.73 sqM) Est GFR (CKD-EPI)NonAf 7 (>60 ml/min/1.73 sqM) Glucose 376 H (74-99) mg/dL Plasma Lactic Acid Micha (0.7-2.0) mmol/L Calcium 9.3 (8.4-10.2) mg/dL Total Bilirubin 0.7 (0.2-1.3) mg/dL AST 68 H (14-36) U/L ALT 191 H (4-34) U/L Alkaline Phosphatase 128 H (38-126) U/L Total Protein 6.3 (6.3-8.2) g/dL Albumin 3.9 (3.5-5.0) g/dL Urine Color Urine Appearance (Clear) Urine pH (5.0-8.0) Ur Specific [place] (1.001-1.035) Urine Protein (Negative) Urine Glucose (UA) (Negative) Urine Ketones (Negative) Urine Blood (Negative) Urine Nitrite (Negative) Urine Bilirubin (Negative) Urine Urobilinogen (<2.0) mg/dL Ur Leukocyte Esterase (Negative) Urine RBC (0-5) /hpf Urine WBC (0-5) /hpf Urine WBC Clumps (None) /hpf Ur Squamous Epith Cells (0-4) /hpf Amorphous Sediment (None) /hpf Urine Bacteria (None) /hpf Urine Mucus (None) /hpf 02/01/20 02/01/20 Range/Units 12:59 13:22 WBC (3.8-10.6) k/uL RBC (3.80-5.40) m/uL Hgb (11.4-16.0) gm/dL Hct (34.0-46.0) % MCV (80.0-100.0) fL MCH (25.0-35.0) pg MCHC (31.0-37.0) g/dL RDW (11.5-15.5) % Plt Count (150-450) k/uL Neutrophils % % Lymphocytes % % Monocytes % % Eosinophils % % Basophils % % Neutrophils # (1.3-7.7) k/uL Lymphocytes # (1.0-4.8) k/uL Monocytes # (0-1.0) k/uL Eosinophils # (0-0.7) k/uL Basophils # (0-0.2) k/uL Hypochromasia Anisocytosis Macrocytosis PT (9.0-12.0) sec INR (<1.2) APTT (22.0-30.0) sec Sodium (137-145) mmol/L Potassium (3.5-5.1) mmol/L Chloride (98-107) mmol/L Carbon Dioxide (22-30) mmol/L Anion Gap mmol/L BUN (7-17) mg/dL Creatinine (0.52-1.04) mg/dL Est GFR (CKD-EPI)AfAm (>60 ml/min/1.73 sqM) Est GFR (CKD-EPI)NonAf (>60 ml/min/1.73 sqM) Glucose (74-99) mg/dL Plasma Lactic Acid Micha 1.7 (0.7-2.0) mmol/L Calcium (8.4-10.2) mg/dL Total Bilirubin (0.2-1.3) mg/dL AST (14-36) U/L ALT (4-34) U/L Alkaline Phosphatase (38-126) U/L Total Protein (6.3-8.2) g/dL Albumin (3.5-5.0) g/dL Urine Color Yellow Urine Appearance Turbid H (Clear) Urine pH 6.0 (5.0-8.0) Ur Specific [place] 1.017 (1.001-1.035) Urine Protein 3+ H (Negative) Urine Glucose (UA) 4+ H (Negative) Urine Ketones Negative (Negative) Urine Blood Moderate H (Negative) Urine Nitrite Negative (Negative) Urine Bilirubin Negative (Negative) Urine Urobilinogen <2.0 (<2.0) mg/dL Ur Leukocyte Esterase Large H (Negative) Urine RBC 55 H (0-5) /hpf Urine WBC >182 H (0-5) /hpf Urine WBC Clumps Many H (None) /hpf Ur Squamous Epith Cells 108 H (0-4) /hpf Amorphous Sediment Rare H (None) /hpf Urine Bacteria Moderate H (None) /hpf Urine Mucus Rare H (None) /hpf - Radiology Data Radiology results: image reviewed (Chest x-ray shows increasing right infrahilar density.) Disposition Clinical Impression: Bacteremia, UTI (urinary tract infection), Pneumonia Disposition: ADMITTED IP TO THIS HOSP Is patient prescribed a controlled substance at d/c from ED?: No Referrals: David Bragg MD [Primary Care Provider] - 1-2 days Decision Time: 14:31
[2020-02-01 13:24] LABS: Anisocytosis Slight; Basophils % (A) 1 %; Eosinophils % (A) 0 %; HCT 25.5 % (34.0-46.0); HGB 7.9 gm/dL (11.4-16.0); Hypochromasia Moderate; Lymphocytes # (A) 0.3 k/uL (1.0-4.8); Lymphocytes % (A) 6 %; MCH 30.9 pg (25.0-35.0); MCHC 31.2 g/dL (31.0-37.0); Macrocytosis Slight; Mean Platelet Volume 9.7; Monocytes # (A) 0.5 k/uL (0-1.0); Monocytes % (A) 8 %; Neutrophils % (A) 83 %; RBC 2.57 m/uL (3.80-5.40); RDW 16.5 % (11.5-15.5)
--- NOTE | 2020-02-01 13:33 | XR ---
EXAMINATION TYPE: XR chest 2V DATE OF EXAM: 02/01/2020 COMPARISON: 01/28/2020 HISTORY: Chest pain TECHNIQUE: Frontal and lateral views of the chest are obtained. FINDINGS: Increased right infrahilar density may reflect infiltrate of uncertain etiology. Correlate clinically for developing pneumonia. No evidence for pneumothorax. No pleural effusion. Persistent cardiomegaly. The osseous structures are grossly intact. IMPRESSION: 1. Increased right infrahilar density may reflect infiltrate of uncertain etiology. Correlate clinic ally for developing pneumonia.
[2020-02-01 13:37] LABS: Albumin 3.9 g/dL (3.5-5.0); Calcium 9.3 mg/dL (8.4-10.2); Potassium 5.1 mmol/L (3.5-5.1); Total Bilirubin 0.7 mg/dL (0.2-1.3); Total Protein 6.3 g/dL (6.3-8.2)
[2020-02-01 13:39] LABS: Platelet Count 109 k/uL (150-450)
[2020-02-01 13:51] LABS: INR 1.1 (<1.2); Prothrombin Time 11.2 sec (9.0-12.0)
[2020-02-01 14:02] LABS: Amorphous Sediment,Urine Rare /hpf; Bacteria,Urine Moderate /hpf; Mucus,Urine Rare /hpf; RBC,Urine 55 /hpf (0-5); Squamous Epithelial Cell,Urine 108 /hpf (0-4); WBC,Urine >182 /hpf (0-5)
[2020-02-01 14:08] LABS: Appearance,Urine Turbid (Clear); Bilirubin,Urine Negative (Negative); Blood,Urine Moderate (Negative); Color,Urine Yellow; Glucose,Urine (UA) 4+ (Negative); Ketones,Urine Negative (Negative); Leukocyte Esterase,Urine Large (Negative); Nitrite,Urine Negative (Negative); Protein,Urine 3+ (Negative); Specific Gravity,Urine 1.017 (1.001-1.035); Urobilinogen,Urine <2.0 mg/dL (<2.0)
[2020-02-01 14:12] LABS: Partial Thromboplastin Time 20.8 sec (22.0-30.0)
[2020-02-01] MEDS ORDERED: PIPERACILLIN-TAZOBACTAM 3.375 GM in SODIUM CHLORIDE 0.9% 100 ML IVPB STA (14:31)
[2020-02-01] MEDS ORDERED: AZITHROMYCIN 500 MG in SODIUM CHLORIDE 0.9% 250 ML IVPB STA (14:31)
[2020-02-01] MEDS ORDERED: PNEUMONIA PROTOCOL UTILIZED 1 EACH MISC PO PRN (14:31)
[2020-02-01] MEDS ORDERED: VANCOMYCIN IV PER PHARMACY 1 EACH MISC MISCELLANE PRN (14:31)
[2020-02-01] MEDS ORDERED: VANCOMYCIN 1,500 MG in SODIUM CHLORIDE 0.9% 250 ML IVPB STA (14:50)
[2020-02-01] MEDS ORDERED: TIOTROPIUM 18 MCG/PUFF INHALER INHALATION PRN (18:12)
[2020-02-01] MEDS ORDERED: ALBUTEROL HFA INHALER INHALATION PRN (18:12)
[2020-02-01] MEDS ORDERED: PROCHLORPERAZINE 5 MG TAB PO PRN (18:12)
[2020-02-01] MEDS ORDERED: SEVELAMER 800 MG TAB PO PRN (18:12)
[2020-02-01] MEDS ORDERED: LIDOCAINE-PRILOCAINE 2.5-2.5% CREAM 5 GM TUBE TOPICAL PRN (18:12)
[2020-02-01 20:11] LABS: Glucose,Whole Blood 341 mg/dL (75-99)
[2020-02-01] MEDS: INSULIN ASPART (NovoLOG) 100 UNIT/ML VIAL SQ SCH ×2 (20:29→20:37)
[2020-02-01] MEDS: HYDROcodone/APAP 7.5-325MG 1 EACH TAB PO SCH (20:29)
[2020-02-01] MEDS: LABETALOL 200 MG TAB PO SCH (20:31)
[2020-02-01] MEDS: CYCLOBENZAPRINE 5 MG TAB PO SCH (20:31)
[2020-02-01] MEDS: GABAPENTIN 100 MG CAP PO SCH (20:31)
[2020-02-01] MEDS: ATORVASTATIN 40 MG TAB PO SCH (20:31)
[2020-02-01] MEDS: hydrALAZINE HCL 50 MG TAB PO SCH (20:31)
[2020-02-01] MEDS: FUROSEMIDE 80 MG TAB PO SCH (20:31)
[2020-02-01] MEDS: SODIUM POLYSTYRENE SULFONATE 15 GM/60 ML BOTTLE PO SCH (20:47)
[2020-02-01] MEDS: cloNIDine HCL 0.1 MG TAB PO SCH (20:47)
[2020-02-01] MEDS: KETOTIFEN 0.025% OPHTH DROPS 5 ML BTL BOTH EYES SCH (20:47)
[2020-02-01] MEDS ORDERED: INSULIN DETEMIR (LEVEMIR) 100 UNIT/ML SYR SQ SCH (21:00)
--- NOTE | 2020-02-01 22:59 | P.CONS ---
History of Present Illness - Reason for Consult Consult date: 02/01/20 Bacteremia Requesting physician: David Bragg - Chief Complaint Weakness and positive blood culture - History of Present Illness Patient is a 54 yr old female with a past medical history significant for end-stage renal disease on hemodialysis through the left arm fistula in this patient who did have an amputation of her fistula at [facility] in November 2019 patient mention she did have balloon angioplasty of feet subsequently the patient was admitted at [facility] and did have MRSA bacteremia patient did have extensive workup no other clinical focus for that infection it was advised six-week course of IV vancomycin on 12/05/2019 however the patient never did follow-up in office follow-up visit to make sure her infection has completely resolved, patient was recently admitted at [facility] from 01/28/2020 to 01/31/2020 currently the patient was transferred from [facility] for evaluation of low blood sugar while at dialysis patient did have blood culture drawn which came back positive with staph aureus patient was advised to come back to the hospital patient currently denies having any fever or any chills, denies having any headache no chest pain or shortness minimal cough no nausea no vomiting no abdominal pain and no diarrhea patient still makes some urine denies having any burning or frequency of urine on arrival to the ER the patient has been afebrile did have a normal white count, patient did have a chest x-ray we did shows increased right infrahilar density may reflect infiltrate and she also have a positive UA patient was started on vancomycin and Zosyn and Zithromax infection disease was consulted for further management of antibiotic therapy Review of Systems Positive point has been mentioned in the HPI rest of the systems are negative Past Medical History Past Medical History: Blood Disorder, Heart Failure, Diabetes Mellitus, Dialysis, Hyperlipidemia, Hypertension, Liver Disease, Pneumonia, Renal Disease Additional Past Medical History / Comment(s): Bilateral cataracts, recently diagnosed with bilateral retinal hemorrhages, hypertriglyceridemia-induced acute pancreatitis, THEN necrotizing pancreatitis. hemodialysis for acute kidney injury 2 months in 2009 after pancreatic OR, 11/2015 diagnosed w/ chronic kidney disease-hemodialysis -last hemodialysis 06/02/19, IDDM type II, past DKA, pt states she has dry heaves day after dialysis, UTI, chronic anemia, frequent body cramping, occasional low back pain, carter's palsy x2, past L leg fx, possible liver disease-recent liver bx-results unknown per pt. History of Any Multi-Drug Resistant Organisms: MRSA Year Discovered:: 12/01/19 MDRO Source:: BLOOD MRSA Past Surgical History: Orthopedic Surgery, Uterine Ablation Additional Past Surgical History / Comment(s): Recent liver biopsy done at [facility] but pt states they have never contacted her with the results, 08/26/17 colonoscopy with polypectomy/bx, pancreatic resection at [facility] 2009, bone marrow biopsies X2-last one 05/19/16,. dialysis chest port x 2 with removals, Left arm shunt placement for dialysis - December 2015 and a revision done with shunt. Left forearm Vein Revision - October 2019 Past Anesthesia/Blood Transfusion Reactions: No Reported Reaction Additional Past Anesthesia/Blood Transfusion Reaction / Comm: Pt has received blood transfusions without reaction. Past Psychological History: No Psychological Hx Reported Smoking Status: Never smoker Past Alcohol Use History: None Reported Past Drug Use History: None Reported - Past Family History Brother(s) Family Medical History: No Reported History Mother Family Medical History: Cancer Additional Family Medical History / Comment(s): . Father Family Medical History: Hypertension Additional Family Medical History / Comment(s): alcoholism Medications and Allergies Home Medications Medication Instructions Recorded Confirmed Type Cyclobenzaprine [Flexeril] 5 mg PO HS 09/14/15 02/01/20 History cloNIDine HCL 0.3 mg PO TID 12/16/16 02/01/20 History Sevelamer [Renvela] 800 mg PO DAILY PRN 08/21/17 02/01/20 History Furosemide [Lasix] 120 mg PO DAILY 10/22/17 02/01/20 History Prochlorperazine [Compazine] 5 mg PO BID PRN 10/26/17 02/01/20 History Sevelamer [Renvela] 3,200 mg PO AC-TID 03/13/18 02/01/20 History Gabapentin [Neurontin] 100 mg PO TID 05/17/18 02/01/20 History INSULIN LISPRO (humaLOG) [humaLOG] 18 unit SQ QID 07/12/18 02/01/20 History Omeprazole 20 mg PO BID 11/01/18 02/01/20 History Lidocaine-Prilocaine Cream [Emla 1 applic TOPICAL DAILY PRN 11/21/18 02/01/20 History Cream 2.5%/2.5%] hydrALAZINE HCL [Apresoline] 100 mg PO TID 12/14/18 02/01/20 History Aspirin EC [Ecotrin Low Dose] 81 mg PO DAILY #30 tablet. 12/17/18 02/01/20 Rx Labetalol [Trandate] 400 mg PO BID #120 tab 12/17/18 02/01/20 Rx Ascorbic Acid [Vitamin C] 500 mg PO DAILY 11/08/19 02/01/20 History Atorvastatin [Lipitor] 40 mg PO HS 11/08/19 02/01/20 History HYDROcodone/APAP 7.5-325MG [[place] 1 tab PO TID 11/08/19 02/01/20 History 7.5-325] Montelukast [Singulair] 10 mg PO DAILY 11/08/19 02/01/20 History Olopatadine HCl [Pataday] 1 drops BOTH EYES BID 11/08/19 02/01/20 History Insulin Glargine,Hum.rec.anlog 80 unit SQ HS 12/02/19 02/01/20 History [Basaglar Kwikpen U-100] Albuterol Sulfate [Proair Hfa] 2 puff INHALATION RT-Q6H PRN 01/28/20 02/01/20 History Docusate [Colace] 100 mg PO DAILY 01/28/20 02/01/20 History Furosemide [Lasix] 80 mg PO HS 01/28/20 02/01/20 History Sodium Polystyrene Sulfonate 30 gm PO SUMOWEFR 01/28/20 02/01/20 History [Kayexalate] diazePAM [Valium] 5 mg PO DAILY PRN 01/28/20 02/01/20 History rOPINIRole HCL [Requip] 1 mg PO TID 01/28/20 02/01/20 History Tiotropium 18 Mcg/Puff [Spiriva] 1 cap INHALATION RT-DAILY PRN 02/01/20 02/01/20 History Allergies Allergy/AdvReac Type Severity Reaction Status Date / Time ciprofloxacin [From Cipro] AdvReac AFFECTED Verified 02/01/20 16:06 EYESIGHT ciprofloxacin HCl AdvReac AFFECTED Verified 09/23/20 16:06 [From Cipro] EYESIGHT Iodinated Contrast Media AdvReac RENAL Verified 02/01/20 16:06 FAILURE Physical Exam Vitals: Vital Signs Temp Pulse Pulse Resp BP BP Pulse Ox 02/01/20 19:10 97.8 F 60 16 140/62 95 02/01/20 16:20 97.8 F 67 20 116/53 96 02/01/20 16:06 98.3 F 88 18 119/60 96 02/01/20 15:00 61 18 151/77 02/01/20 14:00 63 18 129/64 02/01/20 13:06 18 133/64 02/01/20 12:02 97.6 F 62 18 134/63 98 Intake and Output 02/01/20 02/01/20 02/01/20 06:59 14:59 22:59 Intake Total 325 Balance 325 Intake: Intake, IV Titration 125 Amount Vancomycin 1,500 mg In 125 Sodium Chloride 0.9% 250 ml @ 125 mls/hr IVPB ONCE ONE Rx#:[id number] Oral 200 Other: Voiding Method Toilet # Voids 2 Weight 77.111 kg 77.111 kg GENERAL DESCRIPTION: Middle-aged female lying in bed, no distress. No tachypnea or accessory muscle of respiration use. HEENT: Shows Pallor , no scleral icterus. Oral mucous membrane is dry. No pharyngeal erythema or thrush NECK: Trachea central, no thyromegaly. LUNGS: Unlabored breathing. Decreased breath sounds at the base. No wheeze or crackle. HEART: S1, S2, regular rate and rhythm. No loud murmur ABDOMEN: Soft, no tenderness , guarding or rigidity, no organomegaly EXTREMITIES: No edema of feet. SKIN: No rash, no masses palpable. Left arm a fistula site with no redness NEUROLOGICAL: The patient is awake, alert, oriented x3, mood and affect normal. Results CBC & Chem 7: 02/01/20 12:59 02/01/20 12:59 Labs: Abnormal Lab Results - Last 24 Hours (Table) 02/01/20 02/01/20 02/01/20 Range/Units 12:59 12:59 12:59 RBC 2.57 L (3.80-5.40) m/uL Hgb 7.9 L (11.4-16.0) gm/dL Hct 25.5 L (34.0-46.0) % RDW 16.5 H (11.5-15.5) % Plt Count 109 L D (150-450) k/uL Lymphocytes # 0.3 L (1.0-4.8) k/uL APTT 20.8 L (22.0-30.0) sec Sodium 129 L (137-145) mmol/L Chloride 94 L (98-107) mmol/L Carbon Dioxide 20 L (22-30) mmol/L BUN 67 H (7-17) mg/dL Creatinine 6.23 H (0.52-1.04) mg/dL Glucose 376 H (74-99) mg/dL POC Glucose (mg/dL) (75-99) mg/dL AST 68 H (14-36) U/L ALT 191 H (4-34) U/L Alkaline Phosphatase 128 H (38-126) U/L Urine Appearance (Clear) Urine Protein (Negative) Urine Glucose (UA) (Negative) Urine Blood (Negative) Ur Leukocyte Esterase (Negative) Urine RBC (0-5) /hpf Urine WBC (0-5) /hpf Urine WBC Clumps (None) /hpf Ur Squamous Epith Cells (0-4) /hpf Amorphous Sediment (None) /hpf Urine Bacteria (None) /hpf Urine Mucus (None) /hpf 02/01/20 02/01/20 Range/Units 13:22 20:09 RBC (3.80-5.40) m/uL Hgb (11.4-16.0) gm/dL Hct (34.0-46.0) % RDW (11.5-15.5) % Plt Count (150-450) k/uL Lymphocytes # (1.0-4.8) k/uL APTT (22.0-30.0) sec Sodium (137-145) mmol/L Chloride (98-107) mmol/L Carbon Dioxide (22-30) mmol/L BUN (7-17) mg/dL Creatinine (0.52-1.04) mg/dL Glucose (74-99) mg/dL POC Glucose (mg/dL) 341 H (75-99) mg/dL AST (14-36) U/L ALT (4-34) U/L Alkaline Phosphatase (38-126) U/L Urine Appearance Turbid H (Clear) Urine Protein 3+ H (Negative) Urine Glucose (UA) 4+ H (Negative) Urine Blood Moderate H (Negative) Ur Leukocyte Esterase Large H (Negative) Urine RBC 55 H (0-5) /hpf Urine WBC >182 H (0-5) /hpf Urine WBC Clumps Many H (None) /hpf Ur Squamous Epith Cells 108 H (0-4) /hpf Amorphous Sediment Rare H (None) /hpf Urine Bacteria Moderate H (None) /hpf Urine Mucus Rare H (None) /hpf Microbiology - Last 24 Hours (Table) 02/01/20 13:22 Urine Culture - Preliminary Urine,Voided Assessment and Plan Assessment: 1- patient with recurrent MRSA bacteremia in this patient apparently started having a problem after manipulation of her left arm fistula with concern for possible source however fistula site currently with no evidence of any cellulitis and the patient did not have any obvious focus of infection either, clinically doubt pneumonia or UTI this patient with dialysis and her lipid makes any urine and no urinary symptoms (1) MRSA bacteremia Current Visit: Yes Status: Acute Code(s): R78.81 - BACTEREMIA; B95.62 - METHICILLIN RESIS STAPH INFCT CAUSING DISEASES [facility] Code(s): 80440948334224747 Plan: 1-blood cultures will be repeated document clearance of bacteremia 2-Vancomycin pharmacy to dose target trough of 15 while watching his kidney function and Vanco trough closely 3-we will obtain WBC scan , and will also need echocardiogram and possible TK if the patient did have persistent bacteremia We will follow on clinical condition and cultures to further adjust medication if needed Thank you for this consultation will follow this patient with you Time with Patient: Greater than 30
[2020-02-02] MEDS: diazePAM 5 MG TAB PO PRN (03:50)
[2020-02-02] MEDS ORDERED: PIPERACILLIN-TAZOBACTAM 3.375 GM in SODIUM CHLORIDE 0.9% 100 ML IVPB SCH (04:00)
[2020-02-02 07:23] LABS: Glucose,Whole Blood 229 mg/dL (75-99)
[2020-02-02] MEDS: SEVELAMER 800 MG TAB PO SCH ×3 (07:40→17:25)
[2020-02-02] MEDS: INSULIN ASPART (NovoLOG) 100 UNIT/ML VIAL SQ SCH ×8 (07:41→21:23)
[2020-02-02] MEDS ORDERED: VANCOMYCIN 1,500 MG in SODIUM CHLORIDE 0.9% 250 ML IVPB ONE (09:00)
[2020-02-02] MEDS: cloNIDine HCL 0.1 MG TAB PO SCH ×3 (09:02→21:21)
[2020-02-02] MEDS: LABETALOL 200 MG TAB PO SCH ×2 (09:04→21:22)
[2020-02-02] MEDS: hydrALAZINE HCL 50 MG TAB PO SCH ×3 (09:04→21:22)
[2020-02-02] MEDS: ASPIRIN 81 MG PO SCH (09:04)
[2020-02-02] MEDS: MONTELUKAST 10 MG TAB PO SCH (09:05)
[2020-02-02] MEDS: ASCORBIC ACID 500 MG TAB PO SCH (09:05)
[2020-02-02] MEDS: PANTOPRAZOLE 40 MG TABLET PO SCH (09:05)
[2020-02-02] MEDS: GABAPENTIN 100 MG CAP PO SCH ×3 (09:06→21:21)
[2020-02-02] MEDS: FUROSEMIDE 40 MG TAB PO SCH (09:06)
[2020-02-02] MEDS: DOCUSATE 100 MG CAP PO SCH (09:06)
[2020-02-02 09:07] LABS: Glucose,Whole Blood 226 mg/dL (75-99)
[2020-02-02] MEDS: HYDROcodone/APAP 7.5-325MG 1 EACH TAB PO SCH ×3 (09:08→21:22)
[2020-02-02] MEDS: KETOTIFEN 0.025% OPHTH DROPS 5 ML BTL BOTH EYES SCH ×2 (09:22→21:21)
--- NOTE | 2020-02-02 09:48 | HP ---
HISTORY AND PHYSICAL DATE OF SERVICE: 02/01/2020 A 54-year-old white female, end-stage renal disease, dialysis had positive blood cultures, she just left the hospital a couple days ago, positive gram-positive bacteremia. She was admitted for IV antibiotics. She has been having some abdominal pain for a week or 2 with some possible bowel infection and possible UA. Started on vanco and Zosyn and azithromycin. Was consulted for Infectious Disease management and to be admitted. PAST MEDICAL HISTORY: End-stage renal disease, diabetes mellitus, hypothyroidism, hypertension, pneumonia, renal disease, liver disease, alcoholic, hypertriglyceridemia, acute pancreatitis, necrotizing pancreatitis with surgery, uterine ablation, colonoscopy, polypectomy, pancreatic resection at [place] in 2009. She is supposed to get another shunt surgery this week to remove the stunt in her left arm put placed in her right arm. PAST FAMILY HISTORY: Mother with cancer. Father with hypertension. MEDICATIONS: See list. ALLERGIES: CIPRO, IODINE. Temperature 97.8, pulse 80s, respiratory 18-20, blood pressure 140s to 150s/60s to 70s. CARDIOVASCULAR: S1, S2. LUNGS: Rales at the base. HEMATOLOGY: 2+ edema. NEUROLOGIC: Alert and oriented x3. PSYCH: Fair mood and affect. Hemoglobin is 7.9, BUN 67, creatinine 6.23. UA shows large leukocyte esterase, 182 white cells. ASSESSMENT: MRSA bacteremia, it started after upper arm with manipulation after left arm fistula. Concern for possible force of the fistula. No evidence of cellulitis. Possible UTI bacteremia. Continue with vancomycin. WBC scan, possible TK. Continue home medications. The patient was examined in the emergency room. MMODL / IJN: [id number] /
[2020-02-02 11:43] LABS: Glucose,Whole Blood 143 mg/dL (75-99)
--- NOTE | 2020-02-02 12:26 | P.NPCON ---
History of Present Illness - Reason for Consult end stage renal disease - History of Present Illness reason for consultation: End-stage renal disease History of present illness: Patient is a 54-year-old female seen in consultation for end-stage renal disease. She is maintained on hemodialysis on Thursday schedule via AV fistula. Patient was recently discharged from the hospital 2 days ago and at that time was admitted with fluid overload. Patient did develop a fever during that admission and blood cultures were drawn. Yesterday the dialysis unit was notified that her blood culture was positive for gram-positive cocci and was subsequently advised to come back to the hospital. She denies any drainage from her fistula site. No fever or chills. She does have a chronic cough. No abdominal pain. she denies any further episodes of fever while at home. hemodynamically stable. Scheduled for dialysis today. She is maintained on IV antibiotics. Infectious disease is following. Vital signs are stable. General: The patient appeared well nourished and normally developed. HEENT: Head exam is unremarkable. Neck is without jugular venous distension. LUNGS: Lungs are clear to auscultation and percussion. Breath sounds decreased. HEART: Rate and Rhythm are regular. ABDOMEN: soft, nontender. EXTREMITITES: No clubbing, cyanosis, or edema. Past Medical History Past Medical History: Blood Disorder, Heart Failure, Diabetes Mellitus, Di alysis, Hyperlipidemia, Hypertension, Liver Disease, Pneumonia, Renal Disease Additional Past Medical History / Comment(s): Bilateral cataracts, recently diagnosed with bilateral retinal hemorrhages, hypertriglyceridemia-induced acute pancreatitis, THEN necrotizing pancreatitis. hemodialysis for acute kidney injury 2 months in 2009 after pancreatic OR, 11/2015 diagnosed w/ chronic kidney disease-hemodialysis -last hemodialysis 06/02/19, IDDM type II, past DKA, pt states she has dry heaves day after dialysis, UTI, chronic anemia, frequent body cramping, occasional low back pain, carter's palsy x2, past L leg fx, possible liver disease-recent liver bx-results unknown per pt. History of Any Multi-Drug Resistant Organisms: MRSA Date of last positivie culture/infection: 12/01/19 MDRO Source:: BLOOD MRSA Past Surgical History: Orthopedic Surgery, Uterine Ablation Additional Past Surgical History / Comment(s): Recent liver biopsy done at [place] but pt states they have never contacted her with the results, 08/26/17 colonoscopy with polypectomy/bx, pancreatic resection at [facility] 2009, bone marrow biopsies X2-last one 05/19/16,. dialysis chest port x 2 with removals, Left arm shunt placement for dialysis - December 2015 and a revision done with shunt. Left forearm Vein Revision - October 2019 Past Anesthesia/Blood Transfusion Reactions: No Reported Reaction Additional Past Anesthesia/Blood Transfusion Reaction / Comment(s): Pt has received blood transfusions without reaction. Past Psychological History: No Psychological Hx Reported Smoking Status: Never smoker Past Alcohol Use History: None Reported Past Drug Use History: None Reported - Past Family History Brother(s) Family Medical History: No Reported History Mother Family Medical History: Cancer Additional Family Medical History / Comment(s): . Father Family Medical History: Hypertension Additional Family Medical History / Comment(s): alcoholism Medications and Allergies Home Medications Medication Instructions Recorded Confirmed Type Cyclobenzaprine [Flexeril] 5 mg PO HS 09/14/15 02/01/20 History cloNIDine HCL 0.3 mg PO TID 12/16/16 02/01/20 History Sevelamer [Renvela] 800 mg PO DAILY PRN 08/21/17 02/01/20 History Furosemide [Lasix] 120 mg PO DAILY 10/22/17 02/01/20 History Prochlorperazine [Compazine] 5 mg PO BID PRN 10/26/17 02/01/20 History Sevelamer [Renvela] 3,200 mg PO AC-TID 03/13/18 02/01/20 History Gabapentin [Neurontin] 100 mg PO TID 05/17/18 02/01/20 History INSULIN LISPRO (humaLOG) [humaLOG] 18 unit SQ QID 07/12/18 02/01/20 History Omeprazole 20 mg PO BID 11/01/18 02/01/20 History Lidocaine-Prilocaine Cream [Emla 1 applic TOPICAL DAILY PRN 11/21/18 02/01/20 History Cream 2.5%/2.5%] hydrALAZINE HCL [Apresoline] 100 mg PO TID 12/14/18 02/01/20 History Aspirin EC [Ecotrin Low Dose] 81 mg PO DAILY #30 tablet. 12/17/18 02/01/20 Rx Labetalol [Trandate] 400 mg PO BID #120 tab 12/17/18 02/01/20 Rx Ascorbic Acid [Vitamin C] 500 mg PO DAILY 11/08/19 02/01/20 History Atorvastatin [Lipitor] 40 mg PO HS 11/08/19 02/01/20 History HYDROcodone/APAP 7.5-325MG [[place] 1 tab PO TID 11/08/19 02/01/20 History 7.5-325] Montelukast [Singulair] 10 mg PO DAILY 11/08/19 02/01/20 History Olopatadine HCl [Pataday] 1 drops BOTH EYES BID 11/08/19 02/01/20 History Insulin Glargine,Hum.rec.anlog 80 unit SQ HS 12/02/19 02/01/20 History [Basaglar Kwikpen U-100] Albuterol Sulfate [Proair Hfa] 2 puff INHALATION RT-Q6H PRN 01/28/20 02/01/20 History Docusate [Colace] 100 mg PO DAILY 01/28/20 02/01/20 History Furosemide [Lasix] 80 mg PO HS 01/28/20 02/01/20 History Sodium Polystyrene Sulfonate 30 gm PO SUMOWEFR 01/28/20 02/01/20 History [Kayexalate] diazePAM [Valium] 5 mg PO DAILY PRN 01/28/20 02/01/20 History rOPINIRole HCL [Requip] 1 mg PO TID 01/28/20 02/01/20 History Tiotropium 18 Mcg/Puff [Spiriva] 1 cap INHALATION RT-DAILY PRN 02/01/20 02/01/20 History Allergies Allergy/AdvReac Type Severity Reaction Status Date / Time ciprofloxacin [From Cipro] AdvReac AFFECTED Verified 02/01/20 16:06 EYESIGHT ciprofloxacin HCl AdvReac AFFECTED Verified 02/01/20 16:06 [From Cipro] EYESIGHT Iodinated Contrast Media AdvReac RENAL Verified 02/01/20 16:06 FAILURE Physical Exam Vitals: Vital Signs Temp Pulse Pulse Resp BP BP Pulse Ox 02/02/20 07:19 97.8 F 64 16 107/61 96 02/02/20 00:05 98.1 F 65 16 128/56 94 L 02/01/20 19:10 97.8 F 60 16 140/62 95 02/01/20 16:20 97.8 F 67 20 116/53 96 02/01/20 16:06 98.3 F 88 18 119/60 96 02/01/20 15:00 61 18 151/77 02/01/20 14:00 63 18 129/64 02/01/20 13:06 18 133/64 Intake and Output 02/01/20 02/02/20 02/02/20 22:59 06:59 14:59 Intake Total 325 200 Balance 325 200 Intake: Intake, IV Titration 125 Amount Vancomycin 1,500 mg In 125 Sodium Chloride 0.9% 250 ml @ 125 mls/hr IVPB ONCE ONE Rx#:[id number] Oral 200 200 Other: Voiding Method Toilet Toilet Toilet # Voids 2 1 Weight 77.111 kg Results - Lab Results Most recent lab results Calcium 9.3 mg/dL (8.4-10.2) 02/01/20 12:59 02/01/20 12:59 02/01/20 12:59 Assessment and Plan Plan: assessment: 1. End-stage renal disease maintained on hemodialysis on Thursday schedule via AV fistula. 2. Gram-positive bacteremia. unclear source. WBC scan pending. 3. Hypertension with chronic kidney disease. Controlled. 4. Diabetes mellitus. 5. Chronic kidney disease mineral bone disease maintained on Renvela. 6. Anemia of chronic kidney disease. No active bleeding. plan: Hemodialysis today. Follow-up cultures. monitor vancomycin levels. Target level 15. add [place]. Thank you for the consultation. I will continue to follow the patient with you during her hospital stay.
[2020-02-02] MEDS: DARBEPOETIN ALFA 60 MCG/0.3 ML SYRINGE SQ SCH (13:30)
[2020-02-02] MEDS: AZITHROMYCIN 500 MG in SODIUM CHLORIDE 0.9% 250 ML IVPB SCH (16:00)
--- NOTE | 2020-02-02 17:19 | PN ---
PROGRESS NOTE DATE OF SERVICE: 02/02/2020 REASON FOR FOLLOWUP: MRSA bacteremia. INTERVAL HISTORY: The patient is currently afebrile. The patient is feeling better. Breathing comfortably. Denies having any chest pain. No shortness of breath. Minimal cough. No nausea. No abdominal pain or pain to the left arm AV fistula site. PHYSICAL EXAMINATION: Blood pressure 114/60 with a pulse of 62, temperature 96.9. General description is a middle-aged female, up in the chair in no distress. RESPIRATORY SYSTEM: Unlabored breathing, decreased breath sounds at bases, no wheeze. HEART: S1, S2. Regular rate and rhythm. ABDOMEN: Soft, no tenderness. LABS: Blood culture done yesterday came back positive as well. DIAGNOSTIC IMPRESSION AND PLAN: Patient with MRSA bacteremia with concern for possible source, being the AV fistula has been managed previously with bacteremia. The with no evidence of any distant focus. The patient is covered with vancomycin to continue blood culture repeated to document clearance of bacteremia. Continue supportive care. MMODL / IJN: [id number] /
[2020-02-02 17:23] LABS: Glucose,Whole Blood 125 mg/dL (75-99)
[2020-02-02 21:20] LABS: Glucose,Whole Blood 140 mg/dL (75-99)
[2020-02-02] MEDS: FUROSEMIDE 80 MG TAB PO SCH (21:21)
[2020-02-02] MEDS: ATORVASTATIN 40 MG TAB PO SCH (21:21)
[2020-02-02] MEDS: INSULIN DETEMIR (LEVEMIR) 100 UNIT/ML SYR SQ SCH (21:21)
[2020-02-02] MEDS: CYCLOBENZAPRINE 5 MG TAB PO SCH (21:22)
--- NOTE | 2020-02-03 07:09 | PN ---
PROGRESS NOTE SUBJECTIVE: This is a 54-year-old white female with bacteremia. Possible TK has been ordered. Cardiovascular S1-S2. Lungs clear. GI soft. Hematology negative Homans. Psych fair mood and affect. Labs are reviewed. Await for Dr. Coker's recommendations for possible TK. Continue with IV vancomycin. End-stage renal disease. Concern for this possible being AV fistula. No evidence of any distant focus. Continue with vancomycin and repeat blood cultures. Await for Dr. Coker's recommendation. MMODL / IJN: [id number] /
[2020-02-03 07:23] LABS: Glucose,Whole Blood 71 mg/dL (75-99)
[2020-02-03] MEDS: INSULIN ASPART (NovoLOG) 100 UNIT/ML VIAL SQ SCH ×8 (07:24→22:24)
[2020-02-03] MEDS: FUROSEMIDE 40 MG TAB PO SCH (08:19)
[2020-02-03] MEDS: KETOTIFEN 0.025% OPHTH DROPS 5 ML BTL BOTH EYES SCH ×2 (08:19→20:47)
[2020-02-03] MEDS: hydrALAZINE HCL 50 MG TAB PO SCH ×3 (08:19→20:47)
[2020-02-03] MEDS: cloNIDine HCL 0.1 MG TAB PO SCH ×3 (08:19→20:47)
[2020-02-03] MEDS: ASPIRIN 81 MG PO SCH (08:19)
[2020-02-03] MEDS: DOCUSATE 100 MG CAP PO SCH (08:20)
[2020-02-03] MEDS: HYDROcodone/APAP 7.5-325MG 1 EACH TAB PO SCH ×3 (08:20→20:48)
[2020-02-03] MEDS: ASCORBIC ACID 500 MG TAB PO SCH (08:20)
[2020-02-03] MEDS: MONTELUKAST 10 MG TAB PO SCH (08:20)
[2020-02-03] MEDS: GABAPENTIN 100 MG CAP PO SCH ×3 (08:20→20:47)
[2020-02-03] MEDS: PANTOPRAZOLE 40 MG TABLET PO SCH (08:20)
[2020-02-03] MEDS: LABETALOL 200 MG TAB PO SCH ×2 (08:21→20:48)
[2020-02-03] MEDS: SEVELAMER 800 MG TAB PO SCH ×3 (08:21→17:24)
[2020-02-03] MEDS: SODIUM POLYSTYRENE SULFONATE 15 GM/60 ML BOTTLE PO SCH (08:22)
--- NOTE | 2020-02-03 08:22 | XR ---
EXAMINATION TYPE: XR chest 2V DATE OF EXAM: 02/03/2020 COMPARISON: 02/01/2020 INDICATION: Pneumonia TECHNIQUE: Frontal and lateral views of the chest are obtained. FINDINGS: The heart size is normal. The pulmonary vasculature is normal. The air bronchograms in the right lower lobe are again evident. Continued follow-up is recommended. Stents is in the left axillary region.. IMPRESSION: 1. Stable air bronchograms right lower lobe. Continued follow-up is recommended
--- NOTE | 2020-02-03 10:39 | PN ---
PROGRESS NOTE A 54-year-old white female with bacteremia, gram-positive MRSA and possible fluid overload versus pneumonia. She is treated with IV vancomycin daily at this time. Waiting to be set up hopefully with outpatient treatment through dialysis. Continue with vancomycin at this time. She has had no fevers or chills in the hospital. CARDIOVASCULAR: S1, S2. LUNGS: Clear. GI: Soft. HEMATOLOGIC: She has third-spacing of fluid in the lower abdomen and legs. NEUROLOGIC: Cranial nerves are intact. PSYCH: Fair mood and affect. ASSESSMENT: Bacteremia, end-stage renal disease, coronary artery disease, hypertension, dyslipidemia, hypothyroidism, hypercholesterolemia, history of pancreatitis. Continue with dialysis. Continue with vancomycin. Dr. Coker is going to determinate whether she needs a TK or not and continue with antibiotics. Set up outpatient treatment with antibiotics prior to discharge. MMODL / IJN: [id number] /
[2020-02-03 11:02] LABS: African American GFR (CKD) 9 (>60 ml/min/1.73 sqM); Anion Gap 11 mmol/L; Blood Urea Nitrogen 55 mg/dL (7-17); Calcium 8.7 mg/dL (8.4-10.2); Carbon Dioxide 24 mmol/L (22-30); Chloride 99 mmol/L (98-107); Glucose 58 mg/dL (74-99); Non-African American GFR(CKD) 8 (>60 ml/min/1.73 sqM); Potassium 4.3 mmol/L (3.5-5.1); Sodium 134 mmol/L (137-145)
[2020-02-03 11:05] LABS: Vancomycin,Random 21.6 ug/mL
--- NOTE | 2020-02-03 11:13 | P.PN ---
Subjective patient is seen in follow-up for incisional disease. She is maintained on hemodialysis on Thursday schedule. Tolerated dialysis well yesterday. No chest pain or shortness of breath. No vomiting or diarrhea. Blood cultures positive for MRSA. Vital signs are stable. General: The patient appeared well nourished and normally developed. HEENT: Head exam is unremarkable. Neck is without jugular venous distension. LUNGS: Lungs are clear to auscultation and percussion. Breath sounds decreased. HEART: Rate and Rhythm are regular. ABDOMEN: soft, nontender. EXTREMITITES: No clubbing, cyanosis, or edema. Objective - Vital Signs Vital signs: Vital Signs Temp 97.9 F 02/03/20 07:00 Pulse 69 02/03/20 07:00 Resp 16 02/03/20 07:00 BP 173/76 02/03/20 07:00 Pulse Ox 97 02/03/20 08:20 Intake & Output 02/02/20 02/03/20 02/03/20 18:59 06:59 18:59 Intake Total 200 900 Balance 200 900 Weight 76.8 kg Intake: Oral 200 900 Other: Voiding Method Toilet Toilet # Voids 0 3 # Bowel Movements 1 - Labs CBC & Chem 7: 02/01/20 12:59 02/03/20 07:08 Labs: Abnormal Lab Results - Last 24 Hours (Table) 02/02/20 02/02/20 02/02/20 Range/Units 11:35 17:18 21:18 Sodium (137-145) mmol/L BUN (7-17) mg/dL Creatinine (0.52-1.04) mg/dL Glucose (74-99) mg/dL POC Glucose (mg/dL) 143 H 125 H 140 H (75-99) mg/dL 02/03/20 02/03/20 Range/Units 07:08 07:22 Sodium 134 L (137-145) mmol/L BUN 55 H (7-17) mg/dL Creatinine 5.62 H (0.52-1.04) mg/dL Glucose 58 L (74-99) mg/dL POC Glucose (mg/dL) 71 L (75-99) mg/dL Microbiology - Last 24 Hours (Table) 02/01/20 12:59 Blood Culture Gram Stain - Preliminary Blood Blood Culture - Preliminary Presumptive MRSA 02/02/20 20:58 Gram Stain - Preliminary Sputum Sputum Culture - Preliminary 02/02/20 06:03 Blood Culture - Preliminary Blood No Growth after 24 hours 02/01/20 13:22 Urine Culture - Final Urine,Voided 02/01/20 12:59 Blood Culture - Final Blood Assessment and Plan Plan: assessment: 1. End-stage renal disease maintained on hemodialysis on Thursday schedule via AV fistula. 2. MRSA bacteremia. unclear source. WBC scan pending. 3. Hypertension with chronic kidney disease. Controlled. 4. Diabetes mellitus. 5. Chronic kidney disease mineral bone disease maintained on Renvela. 6. Anemia of chronic kidney disease maintained on Aranesp. No active bleeding. plan: Hemodialysis tomorrow. Follow-up cultures. monitor vancomycin levels. Target level 15.
[2020-02-03 11:44] LABS: Glucose,Whole Blood 162 mg/dL (75-99)
[2020-02-03] MEDS ORDERED: VANCOMYCIN 1,500 MG in SODIUM CHLORIDE 0.9% 250 ML IVPB ONE (12:00)
[2020-02-03 12:23] LABS: Anisocytosis Slight; HCT 25.3 % (34.0-46.0); HGB 8.1 gm/dL (11.4-16.0); Hypochromasia Moderate; MCH 31.4 pg (25.0-35.0); MCV 98.1 fL (80.0-100.0); Macrocytosis Slight; Mean Platelet Volume 9.8; Platelet Count 133 k/uL (150-450); Poikilocytosis Slight; RBC 2.58 m/uL (3.80-5.40); RDW 17.4 % (11.5-15.5)
[2020-02-03 13:12] LABS: Band Neutrophils % 2 %; Eosinophils # (M) 0.14 k/uL (0-0.7); Lymphocytes # (M) 0.48 k/uL (1.0-4.8); Metamyelocytes # (M) 0.07 k/uL (0); Metamyelocytes % 1 %; Mixed Population RBC Present; Monocytes # (M) 0.62 k/uL (0-1.0); Myelocytes # (M) 0.14 k/uL (0); Myelocytes % 2 %; Neutrophils % (M) 79 %; Nucleated Red Blood Cells 1 /100 WBC (0-0); Total Cells Counted 200; WBC 6.9 k/uL (3.8-10.6)
[2020-02-03] MEDS: AZITHROMYCIN 500 MG in SODIUM CHLORIDE 0.9% 250 ML IVPB SCH (14:48)
[2020-02-03] MEDS: ONDANSETRON 4 MG/2 ML VIAL IVP PRN (15:37)
--- NOTE | 2020-02-03 16:02 | PN ---
PROGRESS NOTE DATE OF SERVICE: 02/03/2020 REASON FOR FOLLOWUP: MRSA bacteremia. INTERVAL HISTORY: The patient is currently afebrile. The patient is breathing comfortably. The patient did have redraw for the WBC scan with a call back saying there are not enough white cells; however, the patient did have a normal white count. The patient denies having any chest pain or shortness of breath or cough. No nausea, no vomiting, no abdominal pain or diarrhea. PHYSICAL EXAMINATION: Her blood pressure is 133/76, pulse of 69, temperature 97.9. She is 94% on room air. General description is a middle-aged female up in the bed in no distress. RESPIRATORY SYSTEM: Unlabored breathing. Clear to auscultation anteriorly. HEART: S1, S2. Regular rate and rhythm. ABDOMEN: Soft. No tenderness. LABS: Hemoglobin is 8.1, white count 6.9, BUN of 55, creatinine 5.62. CRP is 36.8. Vancomycin random is 21.6. Blood culture from 02/01 is negative. DIAGNOSTIC IMPRESSION AND PLAN: Patient with MRSA bacteremia with concern for possible shunt infection versus other endovascular source. WBC scan tomorrow. Also obtain a TK to make sure no evidence of any endocarditis. Continue with supportive care. MMODL / IJN: [id number] /
[2020-02-03 16:36] LABS: Glucose,Whole Blood 208 mg/dL (75-99)
[2020-02-03] MEDS: FUROSEMIDE 80 MG TAB PO SCH (20:47)
[2020-02-03] MEDS: ATORVASTATIN 40 MG TAB PO SCH (20:47)
[2020-02-03] MEDS: CYCLOBENZAPRINE 5 MG TAB PO SCH (20:48)
[2020-02-03 21:29] LABS: Glucose,Whole Blood 268 mg/dL (75-99)
[2020-02-03] MEDS: INSULIN DETEMIR (LEVEMIR) 100 UNIT/ML SYR SQ SCH (22:23)
[2020-02-04 06:52] LABS: Glucose,Whole Blood 201 mg/dL (75-99)
[2020-02-04] MEDS: SODIUM POLYSTYRENE SULFONATE 15 GM/60 ML BOTTLE PO SCH (07:38)
[2020-02-04] MEDS: KETOTIFEN 0.025% OPHTH DROPS 5 ML BTL BOTH EYES SCH ×2 (07:38→20:40)
[2020-02-04] MEDS: SEVELAMER 800 MG TAB PO SCH ×3 (07:38→17:30)
[2020-02-04] MEDS: HYDROcodone/APAP 7.5-325MG 1 EACH TAB PO SCH ×3 (07:39→20:40)
[2020-02-04] MEDS: cloNIDine HCL 0.1 MG TAB PO SCH ×3 (07:39→20:40)
[2020-02-04] MEDS: hydrALAZINE HCL 50 MG TAB PO SCH ×3 (07:39→20:39)
[2020-02-04] MEDS: FUROSEMIDE 40 MG TAB PO SCH (07:39)
[2020-02-04] MEDS: GABAPENTIN 100 MG CAP PO SCH ×3 (07:40→20:39)
[2020-02-04] MEDS: INSULIN ASPART (NovoLOG) 100 UNIT/ML VIAL SQ SCH ×8 (07:40→21:18)
[2020-02-04] MEDS: ASPIRIN 81 MG PO SCH (07:40)
[2020-02-04] MEDS: ASCORBIC ACID 500 MG TAB PO SCH (07:40)
[2020-02-04] MEDS: DOCUSATE 100 MG CAP PO SCH (07:40)
[2020-02-04] MEDS: MONTELUKAST 10 MG TAB PO SCH (07:40)
[2020-02-04] MEDS: PANTOPRAZOLE 40 MG TABLET PO SCH (07:40)
[2020-02-04] MEDS: LABETALOL 200 MG TAB PO SCH ×2 (07:42→20:41)
--- NOTE | 2020-02-04 09:06 | P.PN ---
Subjective Progress Note Date: 02/04/20 Sara is a 54-year-old patient with ESRD on dialysis Thursday with the AV fistula left upper arm. She came in because of fever and MRSA bacteremia dated 02/01/2020. She was recently admitted with fluid overload and discharged 2 days prior to this admission Currently on dialysis she is stable. She denies any fever chills cough is minimal no shortness of breath. No nausea vomiting diarrhea abdominal pain Otherwise she is feeling comfortable Vital signs are stable Objective - Vital Signs Vital signs: Vital Signs Temp 98.3 F 02/04/20 07:00 Pulse 69 02/04/20 07:00 Resp 16 02/04/20 07:00 BP 150/67 02/04/20 07:00 Pulse Ox 94 L 02/04/20 07:00 Intake & Output 02/03/20 02/04/20 02/04/20 18:59 06:59 18:59 Intake Total 1050 Balance 1050 Weight 80 kg Intake: Oral 1050 Other: Voiding Method Toilet # Voids 2 2 # Bowel Movements 1 On examination awake alert oriented comfortable She is stable on dialysis currently 3 L were ordered for ultrafiltration. HEENT exam no JVP in neck is supple no facial asymmetry The fistula looks normal no evidence of cellulitis Lungs are clear to auscultation with an occasional coarse crackle. Good air entry bilaterally Heart sounds are unremarkable for any murmur rub gallop Abdomen soft slightly protuberant Nontender Extremity exam was no edema Neurologically awake alert oriented - Labs CBC & Chem 7: 02/03/20 07:08 02/03/20 07:08 Labs: Abnormal Lab Results - Last 24 Hours (Table) 02/03/20 02/03/20 02/03/20 Range/Units 07:08 07:08 07:08 RBC 2.58 L (3.80-5.40) m/uL Hgb 8.1 L (11.4-16.0) gm/dL Hct 25.3 L (34.0-46.0) % RDW 17.4 H (11.5-15.5) % Plt Count 133 L (150-450) k/uL Lymphocytes # (Manual) 0.48 L (1.0-4.8) k/uL Metamyelocytes # (Man) 0.07 H (0) k/uL Myelocytes # (Manual) 0.14 H (0) k/uL Nucleated RBCs 1 H (0-0) /100 WBC Sodium 134 L (137-145) mmol/L BUN 55 H (7-17) mg/dL Creatinine 5.62 H (0.52-1.04) mg/dL Glucose 58 L (74-99) mg/dL POC Glucose (mg/dL) (75-99) mg/dL C-Reactive Protein 36.8 H (<10.0) mg/L 02/03/20 02/03/20 02/03/20 Range/Units 11:42 16:35 21:18 RBC (3.80-5.40) m/uL Hgb (11.4-16.0) gm/dL Hct (34.0-46.0) % RDW (11.5-15.5) % Plt Count (150-450) k/uL Lymphocytes # (Manual) (1.0-4.8) k/uL Metamyelocytes # (Man) (0) k/uL Myelocytes # (Manual) (0) k/uL Nucleated RBCs (0-0) /100 WBC Sodium (137-145) mmol/L BUN (7-17) mg/dL Creatinine (0.52-1.04) mg/dL Glucose (74-99) mg/dL POC Glucose (mg/dL) 162 H 208 H 268 H (75-99) mg/dL C-Reactive Protein (<10.0) mg/L 02/04/20 Range/Units 06:50 RBC (3.80-5.40) m/uL Hgb (11.4-16.0) gm/dL Hct (34.0-46.0) % RDW (11.5-15.5) % Plt Count (150-450) k/uL Lymphocytes # (Manual) (1.0-4.8) k/uL Metamyelocytes # (Man) (0) k/uL Myelocytes # (Manual) (0) k/uL Nucleated RBCs (0-0) /100 WBC Sodium (137-145) mmol/L BUN (7-17) mg/dL Creatinine (0.52-1.04) mg/dL Glucose (74-99) mg/dL POC Glucose (mg/dL) 201 H (75-99) mg/dL C-Reactive Protein (<10.0) mg/L Microbiology - Last 24 Hours (Table) 02/02/20 06:03 Blood Culture - Preliminary Blood No Growth after 48 hours 02/01/20 12:59 Blood Culture Gram Stain - Preliminary Blood Blood Culture - Preliminary Presumptive MRSA 02/02/20 20:58 Gram Stain - Preliminary Sputum Sputum Culture - Preliminary Assessment and Plan Assessment: Impression 1. ESRD on dialysis Thursday 2. MRSA bacteremia 920 08/03/2019, Source unclear. On vancomycin antibiotics 3. Diabetes mellitus, history of heart failure, history of pancreatitis and liver disease and a protuberant abdomen 4. History of pancreatic resection at [facility] 2009 5. History of liver biopsy but results not available. 6. Anemia hemoglobin is 8.1 Recommendation 1. Increase ultrafiltration from 3-4 L. She still has 3 hours and 20 minutes left on the treatment 2. Check iron saturation.
[2020-02-04 11:35] LABS: Glucose,Whole Blood 114 mg/dL (75-99)
[2020-02-04] MEDS: AZITHROMYCIN 500 MG in SODIUM CHLORIDE 0.9% 250 ML IVPB SCH (15:12)
--- NOTE | 2020-02-04 16:24 | PN ---
PROGRESS NOTE DATE OF SERVICE: 02/04/2020 REASON FOR FOLLOWUP: MRSA bacteremia. INTERVAL HISTORY: Patient is currently afebrile. The patient is feeling better. Breathing comfortably. Denies having any chest pain. No shortness of breath or cough. No nausea, vomiting, abdominal pain or diarrhea. PHYSICAL EXAMINATION: Blood pressure 123/54 with a pulse of 62, temperature 97.0. She is 94% on room air. General description is a middle-aged female up in the bed in no distress. Respiratory system: Unlabored breathing, clear to auscultation anteriorly. Heart S1, S2. Regular rate and rhythm. Abdomen soft, no tenderness. LABS: No new labs have been obtained today. Blood culture repeat on 02/01 has been negative. DIAGNOSTIC IMPRESSION AND PLAN: Patient with MRSA bacteremia, concern for possible fistula. Unfortunately, ( ) could not be completed. We will order it for Thursday morning again and also check a TK. Continue with vancomycin and continue supportive care. MMODL / IJN: [id number] /
[2020-02-04 16:36] LABS: Glucose,Whole Blood 174 mg/dL (75-99)
--- NOTE | 2020-02-04 16:47 | PN ---
PROGRESS NOTE DATE OF SERVICE: 02/04/2020 I am covering for Dr. Bragg. This 54-year-old woman was admitted with MRSA bacteremia, also has hypertension. Patient also has chronic renal failure. Hemodialysis being continued. Dr. Coker is also considering TK at one point. A 2D echo with Doppler is not available. The most recent chest x-ray which I reviewed personally showed some persistent air bronchogram on the on the right side. PAST MEDICAL HISTORY: Reviewed. REVIEW OF SYSTEMS: Cardiovascular system: No angina or palpitations. Respiration as mentioned earlier. GI: As mentioned earlier. : No dysuria. NERVOUS SYSTEM: No numbness or weakness. CURRENT MEDICATIONS: Reviewed and include: Garrison 7.5 mg, vitamin C, Lipitor, Zithromax. Flexeril, Valium, Lasix, Apresoline, Zaditor, Trandate. Zofran and Compazine, Requip. PHYSICAL EXAM: Patient is alert and oriented times three. Pulse 64. Blood pressure 130/62, respirations 18, temperature 98.4, pulse ox 98% on room air. HEENT: Conjunctivae normal. NECK: No JVD. CARDIOVASCULAR: S1, S2 muffled. RESPIRATORY: Breath sounds diminished in the bases. ABDOMEN: Soft, nontender. NERVOUS SYSTEM: No focal deficits. LABS: Glucose 201 and 114. Hemoglobin is 8.1 from yesterday. Sodium 134. ASSESSMENT: 1. MRSA bacteria with indeterminate source infection, rule out shunt infection endovascular infection. 2. Chronic kidney disease, end-stage renal disease on hemodialysis. 3. Coronary artery disease. 4. Hypertension. 5. Hyperlipidemia. 6. Hypothyroidism. 7. Hypercholesteremia. 8. History of pancreatitis. 9. Hyponatremia. 10.Possible urinary tract infection, present on admission. 11.Anemia, secondary to renal disease. 12.Thrombocytopenia. 13.Obesity with body mass of 31.2. RECOMMENDATIONS AND DISCUSSION: In this 54-year-old woman who presented with multiple complex medical issues, we will monitor the patient closely. Continue the current medications, management and symptomatic treatment. The patient is on broad-spectrum IV antibiotics including Zithromax and as well as vancomycin and the initial blood cultures are positive, but subsequently it is negative. Urine culture has grown no growth. I recommend to continue current medications and follow closely and if the repeat blood cultures are positive, patient will need more extensive evaluation. TK per Dr. Coker. I would order surface 2D echo with Doppler. Further recommendations to follow. MMODL / IJN: [id number] / MTDD
[2020-02-04] MEDS: ONDANSETRON 4 MG/2 ML VIAL IVP PRN (16:52)
[2020-02-04] MEDS: ATORVASTATIN 40 MG TAB PO SCH (20:39)
[2020-02-04] MEDS: CYCLOBENZAPRINE 5 MG TAB PO SCH (20:40)
[2020-02-04] MEDS: FUROSEMIDE 80 MG TAB PO SCH (20:41)
[2020-02-04] MEDS: INSULIN DETEMIR (LEVEMIR) 100 UNIT/ML SYR SQ SCH (20:41)
[2020-02-04 21:06] LABS: Glucose,Whole Blood 255 mg/dL (75-99)
[2020-02-05] MEDS: ONDANSETRON 4 MG/2 ML VIAL IVP PRN ×3 (01:02→23:31)
[2020-02-05 06:47] LABS: Glucose,Whole Blood 72 mg/dL (75-99)
[2020-02-05] MEDS: INSULIN ASPART (NovoLOG) 100 UNIT/ML VIAL SQ SCH ×8 (07:16→21:13)
[2020-02-05 08:14] LABS: Anisocytosis Slight; HCT 22.4 % (34.0-46.0); HGB 7.1 gm/dL (11.4-16.0); Hypochromasia Slight; MCH 30.9 pg (25.0-35.0); MCV 96.6 fL (80.0-100.0); Macrocytosis Slight; Mean Platelet Volume 8.6; Platelet Count 127 k/uL (150-450); Poikilocytosis Slight; RBC 2.31 m/uL (3.80-5.40); RDW 17.5 % (11.5-15.5)
[2020-02-05] MEDS: DOCUSATE 100 MG CAP PO SCH (08:42)
[2020-02-05] MEDS: PANTOPRAZOLE 40 MG TABLET PO SCH (08:42)
[2020-02-05] MEDS: cloNIDine HCL 0.1 MG TAB PO SCH ×3 (08:42→21:13)
[2020-02-05] MEDS: MONTELUKAST 10 MG TAB PO SCH (08:42)
[2020-02-05] MEDS: ASCORBIC ACID 500 MG TAB PO SCH (08:42)
[2020-02-05] MEDS: ASPIRIN 81 MG PO SCH (08:42)
[2020-02-05] MEDS: HYDROcodone/APAP 7.5-325MG 1 EACH TAB PO SCH ×3 (08:42→21:14)
[2020-02-05 08:43] LABS: African American GFR (CKD) 10 (>60 ml/min/1.73 sqM); Anion Gap 9 mmol/L; Blood Urea Nitrogen 38 mg/dL (7-17); Calcium 8.8 mg/dL (8.4-10.2); Carbon Dioxide 26 mmol/L (22-30); Chloride 98 mmol/L (98-107); Glucose 54 mg/dL (74-99); Non-African American GFR(CKD) 8 (>60 ml/min/1.73 sqM); Potassium 4.3 mmol/L (3.5-5.1); Sodium 133 mmol/L (137-145)
[2020-02-05] MEDS: FUROSEMIDE 40 MG TAB PO SCH (08:43)
[2020-02-05] MEDS: hydrALAZINE HCL 50 MG TAB PO SCH ×3 (08:43→21:13)
[2020-02-05] MEDS: GABAPENTIN 100 MG CAP PO SCH ×3 (08:43→21:13)
[2020-02-05] MEDS: SEVELAMER 800 MG TAB PO SCH ×3 (08:43→17:17)
[2020-02-05] MEDS: KETOTIFEN 0.025% OPHTH DROPS 5 ML BTL BOTH EYES SCH ×2 (08:44→21:14)
[2020-02-05] MEDS: LABETALOL 200 MG TAB PO SCH ×2 (08:44→21:12)
[2020-02-05] MEDS: SODIUM POLYSTYRENE SULFONATE 15 GM/60 ML BOTTLE PO SCH (08:49)
[2020-02-05 08:50] LABS: Vancomycin,Random 21.2 ug/mL
--- NOTE | 2020-02-05 09:19 | CDI ---
Documentation Clarification Form Date: 02/05/2020 09:11:09 AM From: Kindra Mackey RN, CCDS Admit Date: 02/02/2020 10:01:00 PM Patient Name: Sara Desouza Visit Number: [id number] ATTENTION: The Clinical Documentation Specialists (CDI) and [facility] Coding Staff appreciate your assistance in clarifying documentation. Please respond to the clarification below the line at the bottom and electronically sign. The CDI & [facility] Coding staff will review the response and follow-up if needed. Please note: Queries are made part of the Legal Health Record. If you have any questions, please contact the author of this message via ITS. Dr. Ayden Carter CHF is documented in the PMH and requires further specificity to accurately reflect the patient SOI/ROM in a patient with ESRD on HD. History/Risk Factors: CHF, ESRD, ETOH Pancreatitis, Anemia of CKD, CAD, HTN, Hypothyroidism Clinical Indicators: [id number] Admission VS/Pulse OX: Temp 97.6, Hr 62, RR 18, B/P 134/63, Spo2 98% RA BNP: No Checked 12/03/2019 Echocardiogram Results: EF 60-65%, moderate concentric LVH, RV severely enlarged, LA is severely dilated, severe pulmonary HTN 02/01/2020 Chest X Ray:"Increased right infrahilar density may reflect infiltrate of uncertain etiology. Correlate clinically for developing pneumonia." Treatment: Lasix 120 mg PO QD Lasix 80 mg Po Q HS In your professional opinion, can you please clarify the acuity and type of CHF if known? Chronic Diastolic Heart Failure: Chronic Systolic & Diastolic Heart Failure: Unable to Determine Other, please specify (Last Revision: August 2017) Chronic Diastolic Heart Failure: MTDD
--- NOTE | 2020-02-05 09:26 | P.PN ---
Subjective Progress Note Date: 02/05/20 Sara is a 54-year-old patient with ESRD on dialysis Thursday with the AV fistula left upper arm. She came in because of fever and MRSA bacteremia dated 02/01/2020. She was recently admitted with fluid overload and discharged 2 days prior to this admission This morning she is complaining o pain in her left eye after using ketotifen eyedrops for dry eyes, otherwise she is fairly asymptomatic She denies any fever chills cough is minimal no shortness of breath. No nausea vomiting diarrhea abdominal pain Otherwise she is feeling comfortable Vital signs are stable Objective - Vital Signs Vital signs: Vital Signs Temp 98.4 F 02/05/20 07:22 Pulse 69 02/05/20 07:22 Resp 16 02/05/20 07:22 BP 167/66 02/05/20 07:22 Pulse Ox 95 02/05/20 07:22 Intake & Output 02/04/20 02/05/20 02/05/20 18:59 06:59 18:59 Intake Total 670 900 Output Total 4000 Balance -3330 900 Weight 78.4 kg Intake: Intake, IV Titration 250 Amount Azithromycin 500 mg In 250 Sodium Chloride 0.9% 250 ml @ 250 mls/hr IVPB DAILY@1400 ANNI Rx#: [id number] Oral 420 900 Output: Hemodialysis 4000 Other: Voiding Method Toilet # Voids 2 On examination is awake alert oriented comfortable HEENT exam no JVP neck is supple no facial asymmetry Lungs are clear to auscultation good air entry bilaterally Heart sounds are unremarkable normal S1 and S2 no murmur rub gallop Abdomen soft slightly protuberant chronically so nontender Extremity exam was no edema Neurologically awake alert oriented - Labs CBC & Chem 7: 02/05/20 06:57 02/05/20 06:57 Labs: Abnormal Lab Results - Last 24 Hours (Table) 02/04/20 02/04/20 02/04/20 Range/Units 11:33 16:35 21:04 RBC (3.80-5.40) m/uL Hgb (11.4-16.0) gm/dL Hct (34.0-46.0) % RDW (11.5-15.5) % Plt Count (150-450) k/uL Sodium (137-145) mmol/L BUN (7-17) mg/dL Creatinine (0.52-1.04) mg/dL Glucose (74-99) mg/dL POC Glucose (mg/dL) 114 H 174 H 255 H (75-99) mg/dL 02/05/20 02/05/20 02/05/20 Range/Units 06:46 06:57 06:57 RBC 2.31 L (3.80-5.40) m/uL Hgb 7.1 L (11.4-16.0) gm/dL Hct 22.4 L (34.0-46.0) % RDW 17.5 H (11.5-15.5) % Plt Count 127 L (150-450) k/uL Sodium 133 L (137-145) mmol/L BUN 38 H (7-17) mg/dL Creatinine 5.49 H (0.52-1.04) mg/dL Glucose 54 L (74-99) mg/dL POC Glucose (mg/dL) 72 L (75-99) mg/dL Microbiology - Last 24 Hours (Table) 02/02/20 06:03 Blood Culture - Preliminary Blood No Growth after 72 hours 02/01/20 12:59 Blood Culture Gram Stain - Final Blood Blood Culture - Final Methicillin resist S. aureus Assessment and Plan Assessment: Impression 1. ESRD on dialysis Thursday. Tolerated 4 L of ultrafiltra tion yesterday 2. MRSA bacteremia 920 08/03/2019, Source unclear. On vancomycin and Zithromax antibiotics 3. Diabetes mellitus, history of heart failure, history of pancreatitis and liver disease and a protuberant abdomen 4. History of pancreatic resection 2009 5. History of liver biopsy but results not available. 6. Anemia hemoglobin is 8.1, went down to 7.1 this morning Recommendation 1. Continue dialysis Thursday 2. Pending TK possibly tomorrow 3. Maintain antibiotics and possible discharge home soon as her antibiotics can be given during her dialysis 4. Iron saturation spending although reluctant to give IV iron because of the bacteremia
[2020-02-05 10:32] LABS: Band Neutrophils % 3 %; Basophils # (M) 0.05 k/uL (0-0.2); Metamyelocytes % 2 %; Monocytes # (M) 0.25 k/uL (0-1.0); Myelocytes # (M) 0.05 k/uL (0); Myelocytes % 1 %; Neutrophils % (M) 77 %; Nucleated Red Blood Cells 0 /100 WBC (0-0); Total Cells Counted 200
[2020-02-05 10:35] LABS: Tear Drop Cells Present
[2020-02-05 11:40] LABS: Glucose,Whole Blood 155 mg/dL (75-99)
[2020-02-05] MEDS: AZITHROMYCIN 500 MG in SODIUM CHLORIDE 0.9% 250 ML IVPB SCH (12:51)
--- NOTE | 2020-02-05 14:37 | P.CRDCN ---
History of Present Illness Consult date: 02/05/20 Requesting physician: Ayden Carter Reason for Consult (text): TK History of present illness: History of present illness: This is a 54-year-old female patient of Dr. Tesfaye a past history of hypertension, diabetes mellitus, end-stage renal disease on dialysis. Patient was admitted to the hospital in November which time she presented with sepsis secondary to MRSA bacteremia and had extensive workup at that time and patient was advised to undergo a 6 week course of IV antibiotics which she failed to follow-up in the office. Echocardiogram at that time revealed EF of 60-65%, moderate concentric left ventricular hypertrophy, LA severely dilated greater than 40, mild mitral regurgitation, moderate tricuspid regurgitation, moderate to severe pulmonary hypertension. No mention of vegetation. Patient was seen at [facility] and was transferred to [facility] on January 31 due to elevated blood sugar and again blood culture was positive for staph aureus and thus consult was requested for TK. Patient is agreeable to undergo a procedure which will be scheduled for tomorrow. She denies having any fever or chills. She denies any chest pain, shortness of breath. She has been undergoing hemodialysis. Blood cultures positive for MRSA. Review Of Systems: Constitutional: No fever, no chills. No weakness, fatigue or lethargy. EENT: No headache. No dizziness. Lungs: No shortness of breath, cough, no sputum production. No wheezing. Cardiovascular: No chest pain, no lower extremity edema. No palpitations. No paroxysmal nocturnal dyspnea. No orthopnea. No lightheadedness or dizziness. No syncopal episodes. Abdominal: No abdominal pain. No nausea, vomiting. No diarrhea. No constipation. No bloody or tarry stools.. No loss of appetite. Genitourinary: No dysuria.. No urinary retention. Musculoskeletal: No myalgias. No muscle weakness, no gait dysfunction, no frequent falls. No back pain. No neck pain. Integumentary: No wounds, no lesions. No rash or pruritus. No unusual bruising. Neurologic: No aphasia. No facial droop. No change in mentation. No head injury. No headache. No paralysis. No paresthesia. Psychiatric: No depression. No anxiety. Endocrine: No abnormal blood sugars. Physical examination: Gen: This is a 54-year-old female. Patient is resting in bed and appears to be comfortable and in no acute distress VS: Patient is afebrile, heart rate 69, blood pressure 167/66, pulse ox 95% on room air. HEENT: Head is atraumatic, normocephalic. Pupils equal, round. Sclerae is anicteric. NECK: Supple. No JVD. No lymphadenopathy. No thyromegaly. LUNGS: Clear to auscultation. No wheezes or rhonchi. No intercostal retractions. HEART: Regular rate and rhythm. Systolic murmur at the left sternal border. ABDOMEN: Soft. Bowel sounds are present. No masses. No tenderness. EXTREMITIES: No pedal edema. No calf tenderness. NEUROLOGICAL: Patient is awake, alert and oriented x3. Cranial nerves 2 through 12 are grossly intact. Assessment: MRSA bacteremia Hypertension Diabetes mellitus type 2 Valvular heart disease with mild mitral regurgitation, moderate tricuspid regurgitation Moderate to severe pulmonary hypertension End-stage renal disease on dialysis Plan: Schedule patient for TK Thursday with Dr. Tesfaye Further recommendations to follow based upon clinical course Thank you kindly for this consultation. Nurse practitioner note has been reviewed, I agree with documented findings and plan of care. Patient was seen and examined. 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 hemodialysis for acute kidney injury 2 months in 2009 after pancreatic OR, 11/2015 diagnosed w/ chronic kidney disease-hemodialysis -last hemodialysis 06/02/19, IDDM type II, past DKA, pt states she has dry heaves day after dialysis, UTI, chronic anemia, frequent body cramping, occasional low back pain, carter's palsy x2, past L leg fx, possible liver disease-recent liver bx-results unknown per pt. History of Any Multi-Drug Resistant Organisms: MRSA Date of last positivie culture/infection: 12/01/19 MDRO Source:: BLOOD MRSA Past Surgical History: Orthopedic Surgery, Uterine Ablation Additional Past Surgical History / Comment(s): Recent liver biopsy done at [place] but pt states they have never contacted her with the results, 08/26/17 colonoscopy with polypectomy/bx, pancreatic resection at [facility] 2009, bone marrow biopsies X2-last one 05/19/16,. dialysis chest port x 2 with removals, Left arm shunt placement for dialysis - December 2015 and a revision done with shunt. Left forearm Vein Revision - October 2019 Past Anesthesia/Blood Transfusion Reactions: No Reported Reaction Additional Past Anesthesia/Blood Transfusion Reaction / Comment(s): Pt has received blood transfusions without reaction. Past Psychological History: No Psychological Hx Reported Smoking Status: Never smoker Past Alcohol Use History: None Reported Past Drug Use History: None Reported - Past Family History Brother(s) Family Medical History: No Reported History Mother Family Medical History: Cancer Additional Family Medical History / Comment(s): . Father Family Medical History: Hypertension Additional Family Medical History / Comment(s): alcoholism Medications and Allergies Home Medications Medication Instructions Recorded Confirmed Type Cyclobenzaprine [Flexeril] 5 mg PO HS 09/14/15 02/01/20 History cloNIDine HCL 0.3 mg PO TID 12/16/16 02/01/20 History Sevelamer [Renvela] 800 mg PO DAILY PRN 08/21/17 02/01/20 History Furosemide [Lasix] 120 mg PO DAILY 10/22/17 02/01/20 History Prochlorperazine [Compazine] 5 mg PO BID PRN 10/26/17 02/01/20 History Sevelamer [Renvela] 3,200 mg PO AC-TID 03/13/18 02/01/20 History Gabapentin [Neurontin] 100 mg PO TID 05/17/18 02/01/20 History INSULIN LISPRO (humaLOG) [humaLOG] 18 unit SQ QID 07/12/18 02/01/20 History Omeprazole 20 mg PO BID 11/01/18 02/01/20 History Lidocaine-Prilocaine Cream [[place]mla 1 applic TOPICAL DAILY PRN 11/21/18 02/01/20 History Cream 2.5%/2.5%] hydrALAZINE HCL [Apresoline] 100 mg PO TID 12/14/18 02/01/20 History Aspirin EC [Ecotrin Low Dose] 81 mg PO DAILY #30 tablet. 12/17/18 02/01/20 Rx Labetalol [Trandate] 400 mg PO BID #120 tab 12/17/18 02/01/20 Rx Ascorbic Acid [Vitamin C] 500 mg PO DAILY 11/08/19 02/01/20 History Atorvastatin [Lipitor] 40 mg PO HS 11/08/19 02/01/20 History HYDROcodone/APAP 7.5-325MG [[place] 1 tab PO TID 11/08/19 02/01/20 History 7.5-325] Montelukast [Singulair] 10 mg PO DAILY 11/08/19 02/01/20 History Olopatadine HCl [Pataday] 1 drops BOTH EYES BID 11/08/19 02/01/20 History Insulin Glargine,Hum.rec.anlog 80 unit SQ HS 12/02/19 02/01/20 History [Basaglar Kwikpen U-100] Albuterol Sulfate [Proair Hfa] 2 puff INHALATION RT-Q6H PRN 01/28/20 02/01/20 History Docusate [Colace] 100 mg PO DAILY 01/28/20 02/01/20 History Furosemide [Lasix] 80 mg PO HS 01/28/20 02/01/20 History Sodium Polystyrene Sulfonate 30 gm PO SUMOWEFR 01/28/20 02/01/20 History [Kayexalate] diazePAM [Valium] 5 mg PO DAILY PRN 01/28/20 02/01/20 History rOPINIRole HCL [Requip] 1 mg PO TID 01/28/20 02/01/20 History Tiotropium 18 Mcg/Puff [Spiriva] 1 cap INHALATION RT-DAILY PRN 02/01/20 02/01/20 History Allergies Allergy/AdvReac Type Severity Reaction Status Date / Time ciprofloxacin [From Cipro] AdvReac AFFECTED Verified 02/01/20 16:06 EYESIGHT ciprofloxacin HCl AdvReac AFFECTED Verified 02/01/20 16:06 [From Cipro] EYESIGHT Iodinated Contrast Media AdvReac RENAL Verified 02/01/20 16:06 FAILURE Physical Exam Vitals: Vital Signs Temp Pulse Resp BP Pulse Ox 02/05/20 07:22 98.4 F 69 16 167/66 95 02/05/20 00:14 98.7 F 71 16 134/56 99 02/05/20 00:00 70 16 02/04/20 20:59 97.6 F 70 16 154/66 96 02/04/20 19:25 18 02/04/20 16:00 18 02/04/20 14:42 98.4 F 64 18 136/62 96 Intake and Output 02/04/20 02/05/20 02/05/20 22:59 06:59 14:59 Intake Total 600 300 Balance 600 300 Intake: Oral 600 300 Other: Voiding Method Toilet Toilet # Voids 2 2 Weight 78.4 kg Results 02/05/20 06:57 02/05/20 06:57 CBC 02/05/20 Range/Units 06:57 WBC 5.0 (3.8-10.6) k/uL RBC 2.31 L (3.80-5.40) m/uL Hgb 7.1 L (11.4-16.0) gm/dL Hct 22.4 L (34.0-46.0) % Plt Count 127 L (150-450) k/uL Comprehensive Metabolic Panel 02/05/20 Range/Units 06:57 Sodium 133 L (137-145) mmol/L Potassium 4.3 (3.5-5.1) mmol/L Chloride 98 (98-107) mmol/L Carbon Dioxide 26 (22-30) mmol/L BUN 38 H (7-17) mg/dL Creatinine 5.49 H (0.52-1.04) mg/dL Glucose 54 L (74-99) mg/dL Calcium 8.8 (8.4-10.2) mg/dL Current Medications Generic Name Dose Route Start Last Admin Trade Name Freq PRN Reason Stop Dose Admin Hydrocodone Bitart/Acetaminophen 1 each 02/01/20 22:00 02/05/20 08:42 Hydrocodone/Apap 7.5-325mg 1 Each Tab PO 1 each TID ANNI Administration Albuterol Sulfate 2 puff 02/01/20 18:12 Albuterol Hfa Inhaler INHALATION RT-Q6H PRN Shortness Of Breath Ascorbic Acid 500 mg 02/02/20 09:00 02/05/20 08:42 Ascorbic Acid 500 Mg Tab PO 500 mg DAILY ANNI Administration Aspirin 81 mg 02/02/20 09:00 02/05/20 08:42 Aspirin 81 Mg PO 81 mg DAILY ANNI Administration Atorvastatin Calcium 40 mg 02/01/20 21:00 02/04/20 20:39 Atorvastatin 40 Mg Tab PO 40 mg HS ANNI Administration Clonidine 0.3 mg 02/01/20 22:00 02/05/20 08:42 Clonidine Hcl 0.1 Mg Tab PO 0.3 mg TID ANNI Administration Cyclobenzaprine HCl 5 mg 02/01/20 21:00 02/04/20 20:40 Cyclobenzaprine 5 Mg Tab PO 5 mg HS ANNI Administration Darbepoetin Drew 60 mcg 02/02/20 12:30 02/02/20 13:30 Darbepoetin Drew 60 Mcg/0.3 Ml Syringe SQ 60 mcg Q7D ANNI Administration Diazepam 5 mg 02/01/20 18:12 02/02/20 03:50 Diazepam 5 Mg Tab PO 5 mg DAILY PRN Administration Anxiety Docusate Sodium 100 mg 02/02/20 09:00 02/05/20 08:42 Docusate 100 Mg Cap PO 100 mg DAILY ANNI Administration Furosemide 120 mg 02/02/20 09:00 02/05/20 08:43 Furosemide 40 Mg Tab PO 120 mg DAILY ANNI Administration Furosemide 80 mg 02/01/20 21:00 02/04/20 20:41 Furosemide 80 Mg Tab PO 80 mg HS ANNI Administration Gabapentin 100 mg 02/01/20 22:00 02/05/20 08:43 Gabapentin 100 Mg Cap PO 100 mg TID ANNI Administration Hydralazine HCl 100 mg 02/01/20 22:00 02/05/20 08:43 Hydralazine Hcl 50 Mg Tab PO 100 mg TID ANNI Administration Azithromycin 500 mg/ Sodium 250 mls @ 250 mls/hr 02/02/20 14:00 02/05/20 12:51 Chloride IVPB 02/06/20 14:01 250 mls/hr DAILY@1400 ANNI Administration Vancomycin HCl 1,500 mg/ 250 mls @ 125 mls/hr 02/05/20 21:00 Sodium Chloride IVPB 02/05/20 22:59 ONCE ONE Insulin Aspart 18 unit 02/01/20 22:00 02/05/20 12:52 Insulin Aspart (Novolog) 100 Unit/Ml Vial SQ 18 unit QID ANNI Administration Insulin Aspart 0 unit 02/01/20 21:00 02/05/20 12:52 Insulin Aspart (Novolog) 100 Unit/Ml Vial SQ Not Given ACHS [facility] Protocol Insulin Detemir 80 unit 02/01/20 22:06 02/04/20 20:41 Insulin Detemir (Levemir) 100 Unit/Ml Syr SQ 80 unit HS ANNI Administration Ketotifen Fumarate 1 drops 02/01/20 21:00 02/05/20 08:44 Ketotifen 0.025% Ophth Drops 5 Ml Btl BOTH EYES 1 drops BID ANNI Administration Labetalol HCl 400 mg 02/01/20 21:00 02/05/20 08:44 Labetalol 200 Mg Tab PO 400 mg BID ANNI Administration Lidocaine/Prilocaine 1 applic 02/01/20 18:12 Lidocaine-Prilocaine 2.5-2.5% Cream 5 Gm Tube TOPICAL DAILY PRN DIALYSIS ACCESS Miscellaneous Information 1 each 02/01/20 14:31 Pneumonia Protocol Utilized 1 Each Misc PO ONCE PRN Per Protocol Miscellaneous Information 1 each 02/01/20 14:31 Vancomycin Iv Per Pharmacy 1 Each Misc MISCELLANE 02/08/20 14:32 DIRECTED PRN Per Protocol Protocol Montelukast Sodium 10 mg 02/02/20 09:00 02/05/20 08:42 Montelukast 10 Mg Tab PO 10 mg DAILY ANNI Administration Ondansetron HCl 4 mg 02/03/20 15:26 02/05/20 13:16 Ondansetron 4 Mg/2 Ml Vial IVP 4 mg Q6HR PRN Administration Nausea And Vomiting Pantoprazole Sodium 40 mg 02/02/20 09:00 02/05/20 08:42 Pantoprazole 40 Mg Tablet PO 40 mg DAILY ANNI Administration Prochlorperazine Maleate 5 mg 02/01/20 18:12 Prochlorperazine 5 Mg Tab PO BID PRN Nausea Ropinirole HCl 1 mg 02/01/20 22:00 02/05/20 08:42 Ropinirole Hcl 1 Mg Tab PO 1 mg TID ANNI Administration Sevelamer Carbonate 800 mg 02/01/20 18:12 Sevelamer 800 Mg Tab PO DAILY PRN SNACKS Sevelamer Carbonate 3,200 mg 02/02/20 07:30 02/05/20 12:51 Sevelamer 800 Mg Tab PO 3,200 mg AC-TID ANNI Administration Sodium Chloride 10 ml 02/01/20 21:00 02/04/20 20:39 Sodium Chloride 0.9% Flush 10 Ml Syringe IV 10 ml BID ANNI Administration Sodium Polystyrene Sulfonate 30 gm 02/01/20 18:15 02/05/20 08:49 Sodium Polystyrene Sulfonate 15 Gm/60 Ml Bottle PO Not Given [id number] ANNI Tiotropium [place] 1 puff 02/01/20 18:12 Tiotropium 18 Mcg/Puff Inhaler INHALATION RT-DAILY PRN Wheezing Intake and Output 02/04/20 02/05/20 02/05/20 22:59 06:59 14:59 Intake Total 600 300 Balance 600 300 Intake: Oral 600 300 Other: Voiding Method Toilet Toilet # Voids 2 2 Weight 78.4 kg 02/05/20 06:57 02/05/20 06:57
[2020-02-05 16:48] LABS: Glucose,Whole Blood 183 mg/dL (75-99)
[2020-02-05] MEDS ORDERED: VANCOMYCIN 1,500 MG in SODIUM CHLORIDE 0.9% 250 ML IVPB ONE (21:00)
[2020-02-05 21:05] LABS: Glucose,Whole Blood 209 mg/dL (75-99)
[2020-02-05] MEDS: ATORVASTATIN 40 MG TAB PO SCH (21:11)
[2020-02-05] MEDS: FUROSEMIDE 80 MG TAB PO SCH (21:12)
[2020-02-05] MEDS: CYCLOBENZAPRINE 5 MG TAB PO SCH (21:12)
[2020-02-05] MEDS: INSULIN DETEMIR (LEVEMIR) 100 UNIT/ML SYR SQ SCH (21:12)
--- NOTE | 2020-02-05 23:47 | PN ---
PROGRESS NOTE DATE OF SERVICE: 02/05/2020 I am covering for Dr. Bragg. This 54-year-old woman was admitted with MRSA bacteremia, also had hypertension, medication was adjusted. The patient is on antibiotics, seen by Infectious Disease and TK was recommended. Cardiology saw the patient. The patient also had valvular heart disease including mild mitral regurgitation and moderate tricuspid regurgitation as well. TK has been scheduled for Thursday by Dr. Tesfaye. PAST MEDICAL HISTORY: Reviewed. REVIEW OF SYSTEMS: CARDIOVASCULAR SYSTEM: No angina. RESPIRATORY SYSTEM: As mentioned earlier. GI: As mentioned earlier. : As mentioned earlier. NERVOUS SYSTEM: No numbness or weakness. CURRENT MEDICATIONS: Current medications are reviewed and include [place] 7.5 mg, vitamin C, aspirin, Lipitor, Zithromax, Catapres, Flexeril, Aranesp, Valium, Colace, Lasix, Neurontin, Apresoline, NovoLog, Levemir, Zaditor, Trandate, Singulair, Protonix, Compazine, Requip, Renvela. PHYSICAL EXAMINATION: Patient is alert and oriented x3. Pulse 68, blood pressure 136/68, respiration 18, temperature 98.5, pulse ox 95% on room air. HEENT: Conjunctivae normal. NECK: No jugular venous distention. CARDIOVASCULAR: S1, S2 muffled. RESPIRATORY: Breath sounds diminished at the bases. A few scattered rhonchi. ABDOMEN: Soft, nontender. LEGS: No edema. No swelling. NERVOUS SYSTEM: No focal deficits. LABS: WBC 5, hemoglobin 7.1, sodium 133, potassium 4.3. ASSESSMENT: 1. MRSA bacteremia with indeterminate source of infection, rule out shunt infection or endovascular infection. 2. Chronic kidney disease, end-stage renal disease on hemodialysis. 3. Coronary artery disease. 4. Hypertension. 5. Hyperlipidemia. 6. Hypothyroidism. 7. Hypercholesteremia. 8. History of pancreatitis. 9. Hyponatremia. 10.Possible urinary tract infection, present on admission. 11.Anemia, secondary to renal disease. 12.Thrombocytopenia. 13.Obesity with body mass index of 31.2. RECOMMENDATION AND DISCUSSION: Recommend to continue current medications, continue symptomatic treatment. Continue with antibiotics. Otherwise, TK tomorrow. Continue the rest of medications and Dr. Bragg will follow tomorrow. Prognosis guarded. MMODL / IJN: [id number] /
[2020-02-06 00:59] LABS: Glucose,Whole Blood 129 mg/dL (75-99)
--- NOTE | 2020-02-06 03:21 | PN ---
PROGRESS NOTE DATE OF SERVICE: 02/05/2020 REASON FOR FOLLOWUP: MRSA bacteremia with a question of fistula infection. INTERVAL HISTORY: The patient is currently afebrile. The patient is breathing comfortably. Denies having any chest pain or shortness of breath or cough. No nausea, vomiting. No abdominal pain or diarrhea. PHYSICAL EXAMINATION: Her blood pressure is 136/68 with a pulse of 68, temperature 98.5. She is 95% on room air. General description is a middle-aged female up in the bed in no distress. RESPIRATORY SYSTEM: Unlabored breathing, decreased breath sounds at the bases. No wheeze. HEART: S1, S2. Regular rate and rhythm. ABDOMEN: Soft, no tenderness. LABS: Hemoglobin 7.1, white count 5.0, BUN of 38, creatinine 5.49. Vanco random is 21.2. Blood culture repeat so far negative. DIAGNOSTIC IMPRESSION AND PLAN: Patient with MRSA bacteremia with concern for endovascular source versus fistula. Unfortunately WBC scan could not be completed. Currently has been consulted for TK hopefully tomorrow. Will repeat request for the WBC scan again tomorrow. Continue with vancomycin and monitor clinical course closely. MMODL / IJN: [id number] /
[2020-02-06 04:57] LABS: Glucose,Whole Blood 61 mg/dL (75-99)
[2020-02-06] MEDS ORDERED: DEXTROSE 50% SYRINGE 50 ML IVP STA ×3 (05:06→09:38)
[2020-02-06 05:57] LABS: Glucose,Whole Blood 99 mg/dL (75-99)
[2020-02-06 06:49] LABS: Glucose,Whole Blood 86 mg/dL (75-99)
[2020-02-06] MEDS: SEVELAMER 800 MG TAB PO SCH ×3 (06:56→17:32)
[2020-02-06] MEDS: INSULIN ASPART (NovoLOG) 100 UNIT/ML VIAL SQ SCH ×8 (06:56→21:18)
[2020-02-06] MEDS: hydrALAZINE HCL 50 MG TAB PO SCH ×3 (07:14→21:16)
[2020-02-06] MEDS: cloNIDine HCL 0.1 MG TAB PO SCH ×3 (07:14→21:17)
[2020-02-06] MEDS: LABETALOL 200 MG TAB PO SCH ×2 (07:15→21:16)
[2020-02-06] MEDS: KETOTIFEN 0.025% OPHTH DROPS 5 ML BTL BOTH EYES SCH ×2 (07:15→21:15)
[2020-02-06 07:59] LABS: Anisocytosis Slight; HCT 21.3 % (34.0-46.0); Hypochromasia Moderate; MCH 31.9 pg (25.0-35.0); MCHC 32.8 g/dL (31.0-37.0); MCV 97.1 fL (80.0-100.0); Macrocytosis Slight; Mean Platelet Volume 7.4; Platelet Count 122 k/uL (150-450); Poikilocytosis Slight; RBC 2.19 m/uL (3.80-5.40); RDW 18.1 % (11.5-15.5); WBC 6.4 k/uL (3.8-10.6)
[2020-02-06 08:29] LABS: Glucose,Whole Blood 75 mg/dL (75-99)
[2020-02-06 09:04] LABS: Band Neutrophils % 3 %; Lymphocytes # (M) 0.64 k/uL (1.0-4.8); Metamyelocytes # (M) 0.13 k/uL (0); Metamyelocytes % 2 %; Monocytes # (M) 0.38 k/uL (0-1.0); Myelocytes # (M) 0.19 k/uL (0); Myelocytes % 3 %; Neutrophils % (M) 78 %; Nucleated Red Blood Cells 0 /100 WBC (0-0); Total Cells Counted 200
[2020-02-06 09:38] LABS: Glucose,Whole Blood 69 mg/dL (75-99)
[2020-02-06] MEDS ORDERED: DEXTROSE 50% SYRINGE 50 ML IVP ONE (09:41)
[2020-02-06 10:07] LABS: Glucose,Whole Blood 173 mg/dL (75-99)
[2020-02-06 10:29] LABS: Glucose,Whole Blood 133 mg/dL (75-99)
--- NOTE | 2020-02-06 11:00 | ECHOF ---
Referral Reason:mrsa bacteremia MEASUREMENTS -------- HEIGHT: 160.0 cm WEIGHT: 81.2 kg BP: 132/62 RVIDd: 3.9 cm (< 3.3) IVSd: 1.3 cm (0.6 - 1.1) LVIDd: 4.3 cm (3.9 - 5.3) LVPWd: 1.5 cm (0.6 - 1.1) IVSs: 1.7 cm LVIDs: 2.7 cm LVPWs: 1.8 cm LA Diam: 4.1 cm (2.7 - 3.8) LAESV Index (A-L): 47.58 ml/m Ao Diam: 3.4 cm (2.0 - 3.7) AV Cusp: 1.6 cm (1.5 - 2.6) MV EXCURSION: 19.436 mm (> 18.000) MV EF SLOPE: 61 mm/s (70 - 150) EPSS: 0.6 cm MV E Armando: 1.33 m/s MV DecT: 276 ms MV A Armando: 0.93 m/s MV E/A Ratio: 1.43 AV maxP.63 mmHg AV meanP.02 mmHg RAP: 5.00 mmHg RVSP: 67.12 mmHg FINDINGS -------- Sinus rhythm. This was a technically good study. The left ventricular size is normal. There is moderate concentric left ventricular hypertrophy. O verall left ventricular systolic function is normal with, an EF between 60 - 65 %. The right ventricle is mild to moderately enlarged. LA is severely dilated >40 ml/m2 The right atrium is normal in size. Interatrial and interventricular septum intact. Aortic valve is trileaflet and is mildly thickened. Trace to mild aortic regurgitation. Cannot ru le out vegetation. The mitral valve leaflets are mildly thickened. Mild mitral annular calcification present. Mild m itral regurgitation is present. Possible Vegetation attached to pmvl Moderate tricuspid regurgitation present. There is severe pulmonary hypertension. The right ventr icular systolic pressure, as measured by Doppler, is 67.12mmHg. Trace/mild (physiologic) pulmonic regurgitation. The aortic root size is normal. IVC Not well visulized. There is a moderate, generalized pericardial effusion present. CONCLUSIONS -------- 1. The left ventricular size is normal. 2. There is moderate concentric left ventricular hypertrophy. 3. Overall left ventricular systolic function is normal with, an EF between 60 - 65 %. 4. The right ventricle is mild to moderately enlarged. 5. LA is severely dilated >40 ml/m2 6. Aortic valve is trileaflet and is mildly thickened. 7. Trace to mild aortic regurgitation. 8. Cannot rule out vegetation. 9. The mitral valve leaflets are mildly thickened. 10. Mild mitral annular calcification present. 11. Mild mitral regurgitation is present. 12. Possible Vegetation attached to pmvl 13. Moderate tricuspid regurgitation present. 14. There is severe pulmonary hypertension. 15. The right ventricular systolic pressure, as measured by Doppler, is 67.12mmHg. 16. Trace/mild (physiologic) pulmonic regurgitation. 17. There is a moderate, generalized pericardial effusion present. BUSINESS TEST ANALYST: Shama Contreras RDCS
[2020-02-06 11:02] LABS: African American GFR (CKD) 7.8 (60.0-200.0); Anion Gap 12.6 mmol/L (4.00-12.00); Carbon Dioxide 22.4 mmol/L (21.6-31.8); Non-African American GFR(CKD) 6.7 (60.0-200.0); Potassium 4.9 mmol/L (3.5-5.5)
[2020-02-06 11:02] LABS: Glucose,Whole Blood 116 mg/dL (75-99)
[2020-02-06 11:39] LABS: Glucose,Whole Blood 100 mg/dL (75-99)
[2020-02-06] MEDS ORDERED: SODIUM CHLORIDE 0.9% 1,000 ML IV ONE (12:30)
[2020-02-06] MEDS ORDERED: BENZOCAINE SPRAY 1 CAN MUCOUS MEM ONE (13:00)
[2020-02-06] MEDS ORDERED: MIDAZOLAM 2 MG/2 ML VIAL IV ONE (13:00)
[2020-02-06] MEDS ORDERED: fentaNYL (PF) 50 MCG/ML 2 ML AMP IV ONE (13:00)
--- NOTE | 2020-02-06 14:07 | ECHOT ---
TRANSESOPHAGEAL ECHOCARDIOGRAM DATE OF SERVICE: 02/06/2020 PERFORMING PHYSICIAN: Urbano Tesfaye MD. PROCEDURE PERFORMED: Transesophageal echocardiogram. INDICATION: Rule out infective endocarditis. COMPLICATION: None. LEVEL OF SEDATION: Moderate with sedation length of 22 minutes. PROCEDURE DESCRIPTION: After obtaining an informed consent, the patient was brought to the transesophageal echocardiogram suite. A pulse oximetry and heart rate monitors were attached to the patient. Subsequently, the transesophageal echocardiogram probe was advanced through the bite guard to the mid esophageal where 2D echocardiogram images as well as color Doppler images were obtained from prior multiple angles. I did perform 2D echocardiogram images, color Doppler, pulse Doppler, and continuous-wave Dopplers. Subsequently, the transesophageal echocardiogram probe was withdrawn out. The procedure was completed without any complication. FINDINGS: The left ventricular dimension and systolic function appeared to be within normal limits. The ejection fraction appeared to be in the range of 50%. The right ventricle appeared to be mildly dilated with normal function. The left atrium is moderately dilated and right atrium is severely dilated. The aortic valve is trileaflet valve with evidence of aortic sclerosis and evidence of echodensity attached to the aortic side of the non coronary cusp, likely represent infective endocarditis and vegetation. The mitral valve also is very thickened with evidence of echodensity attached to the left atrial side of the posterior mitral leaflet and with chaotic motion and represent evidence of vegetation and infective endocarditis. No evidence of abscess seen. The tricuspid valve showed evidence of severe tricuspid regurgitation and the pulmonary artery systolic pressure was calculated to be at 60 mmHg. There was evidence of moderate circumferential pericardial effusion seen. CONCLUSION: 1. Evidence of infective endocarditis with vegetation attached to the left atrial side of the posterior mitral leaflet as well as evidence of vegetation attached to the aortic side of the non coronary cusp. No evidence of abscess seen. 2. Normal left ventricular dimension and systolic function. 3. Mildly dilated right ventricle with normal function. 4. Moderate left atrial and severe right atrial dilatation. 5. Severe tricuspid regurgitation. 6. Severe pulmonary hypertension. 7. Moderate circumferential pericardial effusion. 8. Mildly dilated aortic root. MMODL / IJN: [id number] /
--- NOTE | 2020-02-06 16:46 | PN ---
PROGRESS NOTE Patient is seen for followup for end-stage renal disease. Patient's blood sugars have been running low and therefore she is maintained on D5W which is now at 75 mL an hour. She is scheduled for a TK today. PHYSICAL EXAMINATION: This morning, blood pressure was 172/73, heart rate 60 per minute. Patient is afebrile. Examination of the heart S1, S2. Examination of the lungs, bilateral breath sounds are heard. Decreased breath sounds at bases. Abdomen is soft, distended. Examination of the lower extremities shows edema 1+ bilaterally. BENCH TECHNICIAN exam grossly intact. LABS: Show hemoglobin 7.0 g/dL, sodium 131, potassium 4.9. ASSESSMENT: 1. End-stage renal disease, on hemodialysis on a Thursday, , Thursday schedule. 2. MRSA bacteremia, scheduled for TK today, maintained on antibiotics in the form of vancomycin and Zithromax. 3. Type 2 diabetes. 4. History of pancreatic resection. 5. Chronic liver disease, etiology not clear. PLAN: 1. Hemodialysis in a.m. Discontinue IV fluids once patient returns from TK so that she can eat. 2. Hypoglycemia, expect improvement once patient is eating and we can discontinue the D5W. 3. Follow up on results of TK. MMODL / IJN: [id number] /
[2020-02-06] MEDS: GABAPENTIN 100 MG CAP PO SCH ×3 (16:50→21:16)
[2020-02-06] MEDS: ASCORBIC ACID 500 MG TAB PO SCH (16:50)
[2020-02-06] MEDS: ASPIRIN 81 MG PO SCH (16:50)
[2020-02-06] MEDS: DOCUSATE 100 MG CAP PO SCH (16:50)
[2020-02-06] MEDS: FUROSEMIDE 40 MG TAB PO SCH (16:50)
[2020-02-06] MEDS: HYDROcodone/APAP 7.5-325MG 1 EACH TAB PO SCH ×3 (16:51→21:16)
[2020-02-06] MEDS: MONTELUKAST 10 MG TAB PO SCH (16:52)
[2020-02-06] MEDS: PANTOPRAZOLE 40 MG TABLET PO SCH (16:52)
[2020-02-06] MEDS: SODIUM POLYSTYRENE SULFONATE 15 GM/60 ML BOTTLE PO SCH (16:54)
[2020-02-06 17:12] LABS: Glucose,Whole Blood 199 mg/dL (75-99)
[2020-02-06 20:18] LABS: Glucose,Whole Blood 239 mg/dL (75-99)
[2020-02-06] MEDS: FUROSEMIDE 80 MG TAB PO SCH (21:16)
[2020-02-06] MEDS: CYCLOBENZAPRINE 5 MG TAB PO SCH (21:16)
[2020-02-06] MEDS: ATORVASTATIN 40 MG TAB PO SCH (21:16)
[2020-02-06] MEDS: INSULIN DETEMIR (LEVEMIR) 100 UNIT/ML SYR SQ SCH (21:17)
--- NOTE | 2020-02-06 22:50 | PN ---
PROGRESS NOTE DATE OF SERVICE: 02/06/2020 REASON FOR FOLLOWUP: MRSA bacteremia secondary to endocarditis. INTERVAL HISTORY: The patient is currently afebrile. The patient was taken to the endoscopy suite. The patient is status post TK with evidence of endocarditis. The patient tolerated the procedure. The patient denies having any chest pain, shortness of breath or cough. No vomiting or diarrhea. PHYSICAL EXAMINATION: Her blood pressure is 134/60 with a pulse of 67, temperature 98.1. She is 99% on room air. General description is a middle-aged female up in the bed in no distress. RESPIRATORY SYSTEM: Unlabored breathing. Clear to auscultation. HEART: S1, S2. Regular rate and rhythm. ABDOMEN: Soft. No tenderness. LABS: No new labs have been obtained today. The patient did have a CRP of 36 and a sedimentation rate of 51. Blood cultures on 02/01 have been negative. DIAGNOSTIC IMPRESSION AND PLAN: Patient with MRSA bacteremia with evidence of endocarditis. Recommend vancomycin, Pharmacy to dose, through the dialysis for at least 6-8 weeks, depending on clinical response. Continue with supportive care. MMODL / IJN: [id number] /
--- NOTE | 2020-02-07 01:04 | PN ---
PROGRESS NOTE 54-year-old white female had a transesophageal echo today. Conclusion was evidence of infective endocarditis, vegetation attached to the left atrial side of the posterior mitral leaflet. Vegetations to the aortic side of the non coronary cusp. Normal systolic function, moderate, severe right atrial dilation, severe tricuspid regurgitation, severe pulmonary hypertension. Moderate circumferential pericardial effusion. Cardiovascular S1-S2. Lungs clear. GI soft. Hematology negative Homans. ASSESSMENT: Infective endocarditis will need long-term antibiotics. Await Dr. Coker's recommendation. Continue with dialysis as needed. Currently, patient on vancomycin. See further orders. Probably long-term PICC line treatments for dialysis treatments for probably up to 6 to 8 weeks. MMODL / IJN: [id number] /
[2020-02-07 02:21] LABS: Glucose,Whole Blood 147 mg/dL (75-99)
[2020-02-07] MEDS: diazePAM 5 MG TAB PO PRN (03:34)
[2020-02-07 06:41] LABS: Glucose,Whole Blood 80 mg/dL (75-99)
[2020-02-07] MEDS: INSULIN ASPART (NovoLOG) 100 UNIT/ML VIAL SQ SCH ×8 (08:32→20:57)
[2020-02-07] MEDS: KETOTIFEN 0.025% OPHTH DROPS 5 ML BTL BOTH EYES SCH ×2 (08:32→20:58)
[2020-02-07] MEDS: MONTELUKAST 10 MG TAB PO SCH (08:33)
[2020-02-07] MEDS: HYDROcodone/APAP 7.5-325MG 1 EACH TAB PO SCH ×3 (08:33→20:57)
[2020-02-07] MEDS: cloNIDine HCL 0.1 MG TAB PO SCH ×3 (08:34→20:56)
[2020-02-07] MEDS: hydrALAZINE HCL 50 MG TAB PO SCH ×3 (08:34→20:56)
[2020-02-07] MEDS: FUROSEMIDE 40 MG TAB PO SCH (08:34)
[2020-02-07] MEDS: ASPIRIN 81 MG PO SCH (08:34)
[2020-02-07] MEDS: PANTOPRAZOLE 40 MG TABLET PO SCH (08:34)
[2020-02-07] MEDS: DOCUSATE 100 MG CAP PO SCH (08:34)
[2020-02-07] MEDS: ASCORBIC ACID 500 MG TAB PO SCH (08:34)
[2020-02-07] MEDS: GABAPENTIN 100 MG CAP PO SCH ×3 (08:34→20:56)
[2020-02-07] MEDS: SEVELAMER 800 MG TAB PO SCH ×3 (08:35→17:31)
[2020-02-07] MEDS: LABETALOL 200 MG TAB PO SCH ×2 (08:35→20:57)
[2020-02-07 08:58] LABS: Anisocytosis Slight; Basophils % (A) 0 %; Eosinophils # (A) 0.1 k/uL (0-0.7); Eosinophils % (A) 2 %; HCT 21.5 % (34.0-46.0); Hypochromasia Slight; Lymphocytes # (A) 0.6 k/uL (1.0-4.8); Lymphocytes % (A) 11 %; MCH 31.8 pg (25.0-35.0); MCHC 32.5 g/dL (31.0-37.0); MCV 97.7 fL (80.0-100.0); Macrocytosis Slight; Mean Platelet Volume 8.6; Monocytes # (A) 0.2 k/uL (0-1.0); Monocytes % (A) 5 %; Neutrophils # (A) 4.4 k/uL (1.3-7.7); Neutrophils % (A) 82 %; Platelet Count 116 k/uL (150-450); Poikilocytosis Slight; RDW 18.3 % (11.5-15.5); WBC 5.3 k/uL (3.8-10.6)
--- NOTE | 2020-02-07 11:28 | P.PN ---
Subjective Progress Note Date: 02/07/20 CHIEF COMPLAINT: TK HISTORY OF PRESENT ILLNESS: Patient examined this morning at the bedside. She is status post TK revealing vegetation on aortic and mitral valve. Patient is currently undergoing hemodialysis. She denies chest pain. Denies shortness of breath. PHYSICAL EXAM: VITAL SIGNS: Reviewed. GENERAL: Well-developed in no acute distress. NECK: Supple. No JVD or thyromegaly LUNGS: Respirations even and unlabored. Lungs essentially clear to auscultation bilaterally. HEART: Regular rate and rhythm. S1 and S2 heard. Systolic murmur. EXTREMITIES: Normal range of motion. No clubbing or cyanosis. Peripheral pulses intact. Trace bilateral lower extremity edema ASSESSMENT: MRSA bacteremia Infective endocarditis, s/p TK revealing vegetation on aortic and mitral valves Severe tricuspid regurgitation Severe pulmonary hypertension Moderate pericardial effusion End stage renal disease on HD Hypertension Diabetes mellitus, type II PLAN: Continue current medical regimen Continue antibiotics per Dr. Coker Patient to follow up post discharge with Dr. Tesfaye Nurse practitioner note has been reviewed by physician. Signing provider agrees with the documented findings, assessment, and plan of care. Objective - Vital Signs Vital signs: Vital Signs Temp 97.6 F 02/07/20 07:00 Pulse 65 02/07/20 07:00 Resp 18 02/07/20 07:00 BP 151/67 02/07/20 07:00 Pulse Ox 91 L 02/07/20 07:00 Intake & Output 02/06/20 02/07/20 02/07/20 18:59 06:59 18:59 Intake Total 50 Balance 50 Weight 82.5 kg Intake: IV 50 Other: Voiding Method Toilet # Voids 2 0 - Labs CBC & Chem 7: 02/07/20 07:30 02/06/20 06:43 Labs: Abnormal Lab Results - Last 24 Hours (Table) 02/06/20 02/06/20 02/06/20 Range/Units 11:38 17:10 20:16 RBC (3.80-5.40) m/uL Hgb (11.4-16.0) gm/dL Hct (34.0-46.0) % RDW (11.5-15.5) % Plt Count (150-450) k/uL Lymphocytes # (1.0-4.8) k/uL POC Glucose (mg/dL) 100 H 199 H 239 H (75-99) mg/dL 02/07/20 02/07/20 Range/Units 02:16 07:30 RBC 2.20 L (3.80-5.40) m/uL Hgb 7.0 L (11.4-16.0) gm/dL Hct 21.5 L (34.0-46.0) % RDW 18.3 H (11.5-15.5) % Plt Count 116 L (150-450) k/uL Lymphocytes # 0.6 L (1.0-4.8) k/uL POC Glucose (mg/dL) 147 H (75-99) mg/dL Microbiology - Last 24 Hours (Table) 02/02/20 06:03 Blood Culture - Preliminary Blood No Growth after 120 hours
[2020-02-07 11:43] LABS: Glucose,Whole Blood 105 mg/dL (75-99)
[2020-02-07 13:02] LABS: Anion Gap 14.2 mmol/L (4.00-12.00); BUN/Creat Ratio 8.99 Ratio (12.00-20.00); Calcium 8.9 mg/dL (8.7-10.3); Carbon Dioxide 21.8 mmol/L (21.6-31.8); Potassium 5.2 mmol/L (3.5-5.5)
[2020-02-07 14:18] LABS: African American GFR (CKD) 6.2 (60.0-200.0); Non-African American GFR(CKD) 5.3 (60.0-200.0)
--- NOTE | 2020-02-07 14:53 | PN ---
PROGRESS NOTE Patient is seen for followup for end-stage renal disease. She is currently seen on dialysis, tolerating her treatment well. The patient's TK did show evidence of vegetation on the mitral valve. She is maintained on IV antibiotics. PHYSICAL EXAMINATION: On examination today, blood pressure is 123/57, heart rate 68 per minute, she is afebrile. Examination of the heart S1, S2. Examination of the lungs, bilateral breath sounds are heard. Abdomen is soft, non-tender, distended. Examination of the lower extremities shows edema 2+ bilaterally. METALWORKING SPECIALIST exam is grossly intact. LABS: Revealed sodium 131, potassium 5.2, hemoglobin was 7.0. ASSESSMENT: 1. End-stage renal disease, on hemodialysis on a Thursday, , Thursday schedule. 2. Volume overload. We will plan for extra treatment tomorrow if the patient is still in the hospital. 3. MRSA bacteremia with evidence of endocarditis with vegetation noted on the mitral valve, maintained on vancomycin, being followed by ID. Patient was on Zithromax as well. 4. Hyperkalemia, currently improved, post dialysis. 5. Hypoglycemia, improved once patient is eating. 6. Hypertension, currently stable. PLAN: Repeat hemodialysis in a.m., mostly for ultrafiltration volume overload if the patient is still in the hospital. MMODL / IJN: [id number] /
[2020-02-07 17:13] LABS: Glucose,Whole Blood 231 mg/dL (75-99)
[2020-02-07 20:44] LABS: Glucose,Whole Blood 284 mg/dL (75-99)
[2020-02-07] MEDS: CYCLOBENZAPRINE 5 MG TAB PO SCH (20:56)
[2020-02-07] MEDS: FUROSEMIDE 80 MG TAB PO SCH (20:57)
[2020-02-07] MEDS: INSULIN DETEMIR (LEVEMIR) 100 UNIT/ML SYR SQ SCH ×2 (20:57→21:00)
[2020-02-07] MEDS: ATORVASTATIN 40 MG TAB PO SCH (20:57)
--- NOTE | 2020-02-08 00:57 | PN ---
PROGRESS NOTE DATE OF SERVICE: 02/07/2020. REASON FOR FOLLOWUP: MRSA bacteremia secondary to endocarditis. INTERVAL HISTORY: The patient is afebrile. The patient is breathing comfortably. Denies having any chest pain, shortness of breath or cough. No nausea, no vomiting. No abdominal pain. No diarrhea. PHYSICAL EXAMINATION: Blood pressure 135/65 with a pulse of 61. Temperature 97.9. She is 96% on room air. General description: The patient is a middle-aged female up in the bed in no distress. Respiratory system: Unlabored breathing, clear to auscultation. Heart S1, S2. Regular rate and rhythm. ABDOMEN: Soft, no tenderness. LABS: Hemoglobin 10, white count 5.3, creatinine 7.9. Blood culture repeat has been negative. DIAGNOSTIC IMPRESSION AND PLAN: Patient with MRSA bacteremia secondary to endocarditis. The patient is currently on vancomycin, seemed to be clinically responding. Plan at this time to continue vancomycin, pharmacy to dose through dialysis provide a PICC line plan for 6-8 weeks depending upon clinical response and close outpatient followup. MMODL / IJN: [id number] /
[2020-02-08] MEDS: diazePAM 5 MG TAB PO PRN (03:00)
[2020-02-08 03:23] LABS: Glucose,Whole Blood 180 mg/dL (75-99)
[2020-02-08 06:54] LABS: Glucose,Whole Blood 112 mg/dL (75-99)
[2020-02-08 07:00] LABS: Anisocytosis Slight; Basophils % (A) 0 %; Eosinophils # (A) 0.1 k/uL (0-0.7); Eosinophils % (A) 1 %; HCT 21.6 % (34.0-46.0); Hypochromasia Moderate; Lymphocytes # (A) 0.5 k/uL (1.0-4.8); Lymphocytes % (A) 11 %; MCH 30.6 pg (25.0-35.0); MCHC 31.1 g/dL (31.0-37.0); MCV 98.3 fL (80.0-100.0); Macrocytosis Slight; Mean Platelet Volume 7.5; Monocytes # (A) 0.3 k/uL (0-1.0); Monocytes % (A) 6 %; Neutrophils # (A) 3.8 k/uL (1.3-7.7); Neutrophils % (A) 81 %; Platelet Count 117 k/uL (150-450); Poikilocytosis Slight; RDW 18.6 % (11.5-15.5); WBC 4.6 k/uL (3.8-10.6)
[2020-02-08] MEDS: INSULIN ASPART (NovoLOG) 100 UNIT/ML VIAL SQ SCH ×8 (07:05→21:47)
[2020-02-08 07:20] LABS: HGB 6.7 gm/dL (11.4-16.0)
[2020-02-08] MEDS: KETOTIFEN 0.025% OPHTH DROPS 5 ML BTL BOTH EYES SCH ×3 (07:37→21:48)
[2020-02-08] MEDS: SODIUM POLYSTYRENE SULFONATE 15 GM/60 ML BOTTLE PO SCH (07:37)
[2020-02-08] MEDS: FUROSEMIDE 40 MG TAB PO SCH (07:39)
[2020-02-08] MEDS: GABAPENTIN 100 MG CAP PO SCH ×3 (07:40→21:49)
[2020-02-08] MEDS: PANTOPRAZOLE 40 MG TABLET PO SCH (07:40)
[2020-02-08] MEDS: ASPIRIN 81 MG PO SCH (07:40)
[2020-02-08] MEDS: HYDROcodone/APAP 7.5-325MG 1 EACH TAB PO SCH ×3 (07:40→21:49)
[2020-02-08] MEDS: hydrALAZINE HCL 50 MG TAB PO SCH ×3 (07:40→21:49)
[2020-02-08] MEDS: DOCUSATE 100 MG CAP PO SCH (07:41)
[2020-02-08] MEDS: cloNIDine HCL 0.1 MG TAB PO SCH ×3 (07:41→21:49)
[2020-02-08] MEDS: ASCORBIC ACID 500 MG TAB PO SCH (07:41)
[2020-02-08] MEDS: MONTELUKAST 10 MG TAB PO SCH (07:41)
[2020-02-08] MEDS: SEVELAMER 800 MG TAB PO SCH ×3 (07:42→16:58)
[2020-02-08] MEDS: LABETALOL 200 MG TAB PO SCH ×2 (07:43→21:49)
--- NOTE | 2020-02-08 07:48 | PN ---
PROGRESS NOTE This is a 54-year-old white female for follow up of end-stage renal disease and endocarditis on IV vancomycin, which is being set up as an outpatient for 6-8 weeks during dialysis. Otherwise, patient has had no fever or chills. Blood pressure 120s over 50s, heart rate in the 60s. Cardiovascular S1, S2. Abdomen is soft. Extremities with 2+ edema. Labs show sodium 131, potassium 5.2, hemoglobin 7. ASSESSMENT: 1. End-stage renal disease, on hemodialysis. 2. Volume overload. 3. Methicillin resistant Staphylococcus aureus bacteremia. 4. Endocarditis. 5. Hyperkalemia. 6. Hypoglycemia due to poor eating. 7. Hypertension. Give extra ultrafiltration tomorrow. Will set up home IV vancomycin. She can be discharged home for outpatient antibiotics during dialysis for 8 weeks. MMODL / IJN: [id number] /
[2020-02-08 09:47] LABS: Vancomycin,Random 23.5 ug/mL
--- NOTE | 2020-02-08 10:47 | P.PN ---
Subjective Progress Note Date: 02/08/20 CHIEF COMPLAINT: TK HISTORY OF PRESENT ILLNESS: Patient examined this morning at the bedside. She is status post TK revealing vegetation on aortic and mitral valve. Patient is currently undergoing hemodialysis. She denies chest pain. Denies shortness of breath. PHYSICAL EXAM: VITAL SIGNS: Reviewed. GENERAL: Well-developed in no acute distress. NECK: Supple. No JVD or thyromegaly LUNGS: Respirations even and unlabored. Lungs essentially clear to auscultation bilaterally. HEART: Regular rate and rhythm. S1 and S2 heard. Systolic murmur. EXTREMITIES: Normal range of motion. No clubbing or cyanosis. Peripheral pulses intact. Trace bilateral lower extremity edema ASSESSMENT: MRSA bacteremia Infective endocarditis, s/p TK revealing vegetation on aortic and mitral valves Severe tricuspid regurgitation Severe pulmonary hypertension Moderate pericardial effusion End stage renal disease on HD Hypertension Diabetes mellitus, type II PLAN: Continue current medical regimen Continue antibiotics per Dr. Coker Patient to follow up post discharge with Dr. Tesfaye Nurse practitioner note has been reviewed by physician. Signing provider agrees with the documented findings, assessment, and plan of care. Objective - Vital Signs Vital signs: Vital Signs Temp 97.9 F 02/08/20 07:00 Pulse 65 02/08/20 07:00 Resp 18 02/08/20 07:00 BP 152/71 02/08/20 07:00 Pulse Ox 98 02/08/20 07:00 Intake & Output 02/07/20 02/08/20 02/08/20 18:59 06:59 18:59 Output Total 4000 Balance -4000 Weight 81 kg Output: Hemodialysis 4000 Other: Voiding Method Toilet # Voids 1 1 # Bowel Movements 1 - Labs CBC & Chem 7: 02/08/20 06:16 02/07/20 07:30 Labs: Abnormal Lab Results - Last 24 Hours (Table) 02/07/20 02/07/20 02/07/20 Range/Units 07:30 11:42 17:12 RBC (3.80-5.40) m/uL Hgb (11.4-16.0) gm/dL Hct (34.0-46.0) % RDW (11.5-15.5) % Plt Count (150-450) k/uL Lymphocytes # (1.0-4.8) k/uL Sodium 131 L (135-145) mmol/L Chloride 95 L (96-109) mmol/L Anion Gap 14.20 H (4.00-12.00) mmol/L BUN 71.0 H (9.0-27.0) mg/dL Creatinine 7.9 H* (0.6-1.5) mg/dL Est GFR (CKD-EPI)AfAm 6.2 L (60.0-200.0) Est GFR (CKD-EPI)NonAf 5.3 L (60.0-200.0) BUN/Creatinine Ratio 8.99 L (12.00-20.00) Ratio Glucose 54 L (70-110) mg/dL POC Glucose (mg/dL) 105 H 231 H (75-99) mg/dL 02/07/20 02/08/20 02/08/20 Range/Units 20:43 03:22 06:16 RBC 2.20 L (3.80-5.40) m/uL Hgb 6.7 L* (11.4-16.0) gm/dL Hct 21.6 L (34.0-46.0) % RDW 18.6 H (11.5-15.5) % Plt Count 117 L (150-450) k/uL Lymphocytes # 0.5 L (1.0-4.8) k/uL Sodium (135-145) mmol/L Chloride (96-109) mmol/L Anion Gap (4.00-12.00) mmol/L BUN (9.0-27.0) mg/dL Creatinine (0.6-1.5) mg/dL Est GFR (CKD-EPI)AfAm (60.0-200.0) Est GFR (CKD-EPI)NonAf (60.0-200.0) BUN/Creatinine Ratio (12.00-20.00) Ratio Glucose (70-110) mg/dL POC Glucose (mg/dL) 284 H 180 H (75-99) mg/dL 02/08/20 Range/Units 06:53 RBC (3.80-5.40) m/uL Hgb (11.4-16.0) gm/dL Hct (34.0-46.0) % RDW (11.5-15.5) % Plt Count (150-450) k/uL Lymphocytes # (1.0-4.8) k/uL Sodium (135-145) mmol/L Chloride (96-109) mmol/L Anion Gap (4.00-12.00) mmol/L BUN (9.0-27.0) mg/dL Creatinine (0.6-1.5) mg/dL Est GFR (CKD-EPI)AfAm (60.0-200.0) Est GFR (CKD-EPI)NonAf (60.0-200.0) BUN/Creatinine Ratio (12.00-20.00) Ratio Glucose (70-110) mg/dL POC Glucose (mg/dL) 112 H (75-99) mg/dL Microbiology - Last 24 Hours (Table) 02/02/20 06:03 Blood Culture - Final Blood No Growth after 144 hours
[2020-02-08 11:32] LABS: Glucose,Whole Blood 121 mg/dL (75-99)
[2020-02-08 13:09] LABS: African American GFR (CKD) 7.7 (60.0-200.0); Albumin 3.9 g/dL (3.80-4.90); Albumin/Globulin Ratio 2.29 (1.60-3.17); Anion Gap 18.3 mmol/L (4.00-12.00); BUN/Creat Ratio 8.03 Ratio (12.00-20.00); Calcium 9.1 mg/dL (8.7-10.3); Carbon Dioxide 18.7 mmol/L (21.6-31.8); Globulin 1.7 g/dL (1.6-3.3); Non-African American GFR(CKD) 6.6 (60.0-200.0); Potassium 5.6 mmol/L (3.5-5.5); Total Bilirubin 0.3 mg/dL (0.2-1.2); Total Protein 5.6 g/dL (6.2-8.2)
[2020-02-08] MEDS ORDERED: VANCOMYCIN IV PER PHARMACY 1 EACH MISC MISCELLANE PRN (15:26)
--- NOTE | 2020-02-08 15:56 | PN ---
PROGRESS NOTE Patient is seen for followup for end-stage renal disease. Patient is currently doing well. She had an extra treatment today with about 3 L of ultrafiltration. Patient tolerated it fairly well. She had 4 L off yesterday. PHYSICAL EXAMINATION: On examination, blood pressure 131/64, heart rate 70 per minute, she is afebrile. Examination of the heart S1, S2. Examination of the lungs, decreased breath sounds at bases. Abdomen is soft, nontender. Examination of the lower extremities shows 1+ edema. BURNER TENDER exam grossly intact. LABS: Show sodium 132, potassium 5.6, serum creatinine 6.6, hemoglobin 6.7 g/dL. ASSESSMENT: 1. End-stage renal disease, on hemodialysis on a Thursday, , Thursday schedule. Will arrange for hemodialysis in a.m. Patient had an extra treatment today for volume overload. 2. Volume overload, currently improved. 3. Anemia, possible GI bleed as patient's potassium also increased in spite of dialysis yesterday. 4. MRSA bacteremia and endocarditis, being followed by Infectious Disease, maintained on antibiotics. PLAN: Hemodialysis in a.m. Check stool for occult blood. Continue with the Aranesp. Transfuse packed RBCs. MMODL / IJN: [id number] /
--- NOTE | 2020-02-08 16:18 | PN ---
PROGRESS NOTE DATE OF SERVICE: 02/08/2020 REASON FOR FOLLOWUP: MRSA and endocarditis. INTERVAL HISTORY: The patient is currently afebrile. The patient is breathing comfortably. Denies having any chest pain. No shortness of breath. No abdominal pain or diarrhea. PHYSICAL EXAMINATION: Blood pressure 131/64 with a pulse of 70, temperature 97, she is 98% on room air.: General description is a middle-aged female, up in the bed, in no distress. RESPIRATORY SYSTEM: Unlabored breathing, decreased breath sounds in the base. No wheeze. HEART: S1, S2. Regular rate and rhythm. ABDOMEN: Soft, no tenderness. LABS: Hemoglobin is , white count is 4.6, creatinine is 0.6, culture has been negative. DIAGNOSTIC IMPRESSION AND PLAN: Patient with MRSA bacteremia secondary to endocarditis in this patient who did have some nausea. Followup blood culture has been negative. Plan at this time is to continue vancomycin, pharmacy to dose with a plan for Bactrim PICC line. Continue supportive care. MMODL / IJN: [id number] /
[2020-02-08 16:50] LABS: Glucose,Whole Blood 167 mg/dL (75-99)
[2020-02-08 21:22] LABS: Glucose,Whole Blood 196 mg/dL (75-99)
[2020-02-08] MEDS: FUROSEMIDE 80 MG TAB PO SCH (21:44)
[2020-02-08] MEDS: INSULIN DETEMIR (LEVEMIR) 100 UNIT/ML SYR SQ SCH (21:47)
[2020-02-08] MEDS: CYCLOBENZAPRINE 5 MG TAB PO SCH (21:49)
[2020-02-08] MEDS: ATORVASTATIN 40 MG TAB PO SCH (21:49)
[2020-02-09] MEDS ORDERED: ONDANSETRON 4 MG/2 ML VIAL IVP PRN (01:51)
--- NOTE | 2020-02-09 02:06 | PN ---
PROGRESS NOTE A 54-year-old white female, breathing comfortably. No chest pain or shortness of breath. CARDIAC: Heart S1, S2. No murmurs. LUNGS: Are clear. GI: Soft. HEMATOLOGY: Negative Homans. No fevers. Hemoglobin 6.9 she can get 1 unit of blood followed by [facility]. White count 4.6, creatinine . MRSA bacteremia secondary endocarditis. Continue vancomycin with plan for Bactrim. PICC line for 6 to 8 weeks. Discharge home tomorrow after 1 unit of blood being given for severe acute on chronic anemia today. MMODL / IJN: [id number] /
[2020-02-09] MEDS: diazePAM 5 MG TAB PO PRN (03:56)
[2020-02-09 04:58] LABS: Glucose,Whole Blood 69 mg/dL (75-99)
[2020-02-09 07:02] LABS: Glucose,Whole Blood 121 mg/dL (75-99)
[2020-02-09] MEDS: KETOTIFEN 0.025% OPHTH DROPS 5 ML BTL BOTH EYES SCH (07:59)
[2020-02-09] MEDS: INSULIN ASPART (NovoLOG) 100 UNIT/ML VIAL SQ SCH ×3 (07:59→12:21)
[2020-02-09] MEDS: HYDROcodone/APAP 7.5-325MG 1 EACH TAB PO SCH (08:00)
[2020-02-09] MEDS: SEVELAMER 800 MG TAB PO SCH ×2 (08:01→12:22)
[2020-02-09] MEDS: FUROSEMIDE 40 MG TAB PO SCH (08:02)
[2020-02-09] MEDS: cloNIDine HCL 0.1 MG TAB PO SCH (08:02)
[2020-02-09] MEDS: hydrALAZINE HCL 50 MG TAB PO SCH (08:03)
[2020-02-09] MEDS: ASCORBIC ACID 500 MG TAB PO SCH (08:03)
[2020-02-09] MEDS: MONTELUKAST 10 MG TAB PO SCH (08:03)
[2020-02-09] MEDS: DOCUSATE 100 MG CAP PO SCH (08:04)
[2020-02-09] MEDS: PANTOPRAZOLE 40 MG TABLET PO SCH (08:04)
[2020-02-09] MEDS: ASPIRIN 81 MG PO SCH (08:05)
[2020-02-09] MEDS: LABETALOL 200 MG TAB PO SCH (08:05)
[2020-02-09] MEDS: GABAPENTIN 100 MG CAP PO SCH (08:05)
[2020-02-09 08:10] LABS: Anisocytosis Slight; Basophils % (A) 1 %; Eosinophils % (A) 1 %; HCT 23.4 % (34.0-46.0); HGB 7.4 gm/dL (11.4-16.0); Hypochromasia Moderate; Lymphocytes # (A) 0.4 k/uL (1.0-4.8); Lymphocytes % (A) 10 %; MCH 30.7 pg (25.0-35.0); MCHC 31.8 g/dL (31.0-37.0); MCV 96.4 fL (80.0-100.0); Macrocytosis Slight; Mean Platelet Volume 8.3; Monocytes # (A) 0.2 k/uL (0-1.0); Monocytes % (A) 5 %; Neutrophils # (A) 3.2 k/uL (1.3-7.7); Neutrophils % (A) 83 %; Platelet Count 104 k/uL (150-450); Poikilocytosis Slight; RBC 2.43 m/uL (3.80-5.40); RDW 19.2 % (11.5-15.5); WBC 3.9 k/uL (3.8-10.6)
[2020-02-09 08:35] VITALS: PULSE 67
--- NOTE | 2020-02-09 10:11 | P.PN ---
Subjective Progress Note Date: 02/09/20 CHIEF COMPLAINT: TK HISTORY OF PRESENT ILLNESS: Patient examined this morning at the bedside. She is status post TK revealing vegetation on aortic and mitral valve. She denies chest pain. Denies shortness of breath. She states she is going home today. PHYSICAL EXAM: VITAL SIGNS: Reviewed. GENERAL: Well-developed in no acute distress. NECK: Supple. No JVD or thyromegaly LUNGS: Respirations even and unlabored. Lungs essentially clear to auscultation bilaterally. HEART: Regular rate and rhythm. S1 and S2 heard. Systolic murmur. EXTREMITIES: Normal range of motion. No clubbing or cyanosis. Peripheral pulses intact. Trace bilateral lower extremity edema ASSESSMENT: MRSA bacteremia Infective endocarditis, s/p TK revealing vegetation on aortic and mitral valves Severe tricuspid regurgitation Severe pulmonary hypertension Moderate pericardial effusion End stage renal disease on HD Hypertension Diabetes mellitus, type II PLAN: Continue current medical regimen Continue antibiotics per Dr. Coker Patient to follow up post discharge with Dr. Tesfaye Nurse practitioner note has been reviewed by physician. Signing provider agrees with the documented findings, assessment, and plan of care. Objective - Vital Signs Vital signs: Vital Signs Temp 97.7 F 02/09/20 07:00 Pulse 67 02/09/20 07:00 Resp 15 02/09/20 07:00 BP 158/75 02/09/20 07:00 Pulse Ox 100 02/09/20 07:00 Intake & Output 02/08/20 02/09/20 02/09/20 18:59 06:59 18:59 Intake Total 310 180 Output Total 3000 Balance -2690 180 Intake: Oral 180 Blood Product 310 Rc Irr As1 Unit 310 [id number] Output: Hemodialysis 3000 Other: # Voids 2 1 - Labs CBC & Chem 7: 02/09/20 07:46 02/08/20 06:16 Labs: Abnormal Lab Results - Last 24 Hours (Table) 02/08/20 02/08/20 02/08/20 Range/Units 06:16 08:40 11:31 RBC (3.80-5.40) m/uL Hgb (11.4-16.0) gm/dL Hct (34.0-46.0) % RDW (11.5-15.5) % Plt Count (150-450) k/uL Lymphocytes # (1.0-4.8) k/uL Sodium 132 L (135-145) mmol/L Potassium 5.6 H (3.5-5.5) mmol/L Chloride 95 L (96-109) mmol/L Carbon Dioxide 18.7 L (21.6-31.8) mmol/L Anion Gap 18.30 H (4.00-12.00) mmol/L BUN 53.0 H (9.0-27.0) mg/dL Creatinine 6.6 H (0.6-1.5) mg/dL Est GFR (CKD-EPI)AfAm 7.7 L (60.0-200.0) Est GFR (CKD-EPI)NonAf 6.6 L (60.0-200.0) BUN/Creatinine Ratio 8.03 L (12.00-20.00) Ratio POC Glucose (mg/dL) 121 H (75-99) mg/dL Alkaline Phosphatase 172 H (41-126) U/L Total Protein 5.6 L (6.2-8.2) g/dL Crossmatch See Detail 02/08/20 02/08/20 02/09/20 Range/Units 16:49 21:21 04:56 RBC (3.80-5.40) m/uL Hgb (11.4-16.0) gm/dL Hct (34.0-46.0) % RDW (11.5-15.5) % Plt Count (150-450) k/uL Lymphocytes # (1.0-4.8) k/uL Sodium (135-145) mmol/L Potassium (3.5-5.5) mmol/L Chloride (96-109) mmol/L Carbon Dioxide (21.6-31.8) mmol/L Anion Gap (4.00-12.00) mmol/L BUN (9.0-27.0) mg/dL Creatinine (0.6-1.5) mg/dL Est GFR (CKD-EPI)AfAm (60.0-200.0) Est GFR (CKD-EPI)NonAf (60.0-200.0) BUN/Creatinine Ratio (12.00-20.00) Ratio POC Glucose (mg/dL) 167 H 196 H 69 L (75-99) mg/dL Alkaline Phosphatase (41-126) U/L Total Protein (6.2-8.2) g/dL Crossmatch 02/09/20 02/09/20 Range/Units 06:59 07:46 RBC 2.43 L (3.80-5.40) m/uL Hgb 7.4 L (11.4-16.0) gm/dL Hct 23.4 L (34.0-46.0) % RDW 19.2 H (11.5-15.5) % Plt Count 104 L (150-450) k/uL Lymphocytes # 0.4 L (1.0-4.8) k/uL Sodium (135-145) mmol/L Potassium (3.5-5.5) mmol/L Chloride (96-109) mmol/L Carbon Dioxide (21.6-31.8) mmol/L Anion Gap (4.00-12.00) mmol/L BUN (9.0-27.0) mg/dL Creatinine (0.6-1.5) mg/dL Est GFR (CKD-EPI)AfAm (60.0-200.0) Est GFR (CKD-EPI)NonAf (60.0-200.0) BUN/Creatinine Ratio (12.00-20.00) Ratio POC Glucose (mg/dL) 121 H (75-99) mg/dL Alkaline Phosphatase (41-126) U/L Total Protein (6.2-8.2) g/dL Crossmatch Microbiology - Last 24 Hours (Table) 02/02/20 06:03 Blood Culture - Final Blood No Growth after 144 hours
[2020-02-09 11:54] VITALS: BMI 31.6
[2020-02-09 12:22] LABS: African American GFR (CKD) 8.3 (60.0-200.0); Albumin 3.9 g/dL (3.80-4.90); Albumin/Globulin Ratio 1.95 (1.60-3.17); Anion Gap 12.9 mmol/L (4.00-12.00); BUN/Creat Ratio 8.06 Ratio (12.00-20.00); Calcium 9.1 mg/dL (8.7-10.3); Carbon Dioxide 23.1 mmol/L (21.6-31.8); Non-African American GFR(CKD) 7.1 (60.0-200.0); Potassium 5.4 mmol/L (3.5-5.5); Total Bilirubin 0.4 mg/dL (0.3-1.2); Total Protein 5.9 g/dL (6.2-8.2)
[2020-02-09 12:28] LABS: Glucose,Whole Blood 93 mg/dL (75-99)
[2020-02-09 12:54] VITALS: BP 127/69; RESP 16; TEMP 98.2
--- NOTE | 2020-02-09 17:09 | PN ---
PROGRESS NOTE Patient is seen for followup for end-stage renal disease. She is currently seen on hemodialysis. Patient is tolerating her treatment well. She states she will be going home today to continue with antibiotics for infective endocarditis. PHYSICAL EXAMINATION: On examination, blood pressure was 127/69, heart rate 67 per minute. She is afebrile. Examination of lower extremities shows edema 2+ bilaterally. Abdomen is distended, soft, nontender. AV fistula is working well. LABS: Labs show sodium 133, potassium 5.4, serum creatinine was 6.2, BUN 50, hemoglobin 7.4 g/dL. ASSESSMENT: 1. End-stage renal disease, on hemodialysis on a Thursday, , Thursday schedule. 2. Volume overload, currently improved. 3. Methicillin-resistant Staphylococcus aeruginosa bacteremia and infective endocarditis, maintained on vancomycin, being followed by Infectious Disease. Follow-up blood cultures are negative. Patient will be maintained on vancomycin and Bactrim as outpatient. PLAN: Continue antibiotics as outpatient and hemodialysis on Thursday as outpatient if she is discharged today. MMODL / IJN: [id number] /
[2020-02-09] MEDS: DARBEPOETIN ALFA 60 MCG/0.3 ML SYRINGE SQ SCH (18:28)
--- NOTE | 2020-02-09 19:38 | PN ---
PROGRESS NOTE DATE OF SERVICE: 02/09/2020 REASON FOR FOLLOWUP: MRSA bacteremia secondary to endocarditis. INTERVAL HISTORY: The patient was seen on rounds this morning. The patient has been afebrile. She was breathing comfortably. Denies having any chest pain. Occasional cough. No nausea. No vomiting. No abdominal pain or diarrhea. PHYSICAL EXAMINATION: Blood pressure 137/69 with a pulse of 67, temperature 98.2. She is 100% on 2 L nasal cannula. General description is a middle-aged female up in the bed in no distress. RESPIRATORY SYSTEM: Unlabored breathing. Clear to auscultation anteriorly. HEART: S1, S2. Regular rate and rhythm. ABDOMEN: Soft. No tenderness. LABS: Creatinine is 6.2. White count 3.9. Blood culture repeat has been negative. DIAGNOSTIC IMPRESSION AND PLAN: Patient with methicillin-resistant Staphylococcus aeruginosa bacteremia. Source is endocarditis. Patient's follow-up blood culture negative. She will continue vancomycin, Pharmacy to dose, with dialysis for at least 6 to 8 weeks with weekly monitoring of CBC, BMP, sedimentation rate. Follow up in the office in 2 weeks. Questions and concerns were answered. MMODL / IJN: [id number] /
--- NOTE | 2020-02-11 21:44 | CDI ---
Documentation Clarification Form Date: 02/12/2020 From: Soham Romero Phone: If you have a question about this query, please contact Olvia Kurzt, Field Marketing Associate at [phone] between 8am and 5pm. Admit Date: 02/02/2020 Discharge Date: 02/09/2020 Patient Name: Sara Desouza Visit Number: [id number] ATTENTION: The Clinical Documentation Specialists (CDI) and [facility] Coding Staff appreciate your assistance in clarifying documentation. Please respond to the clarification below the line at the bottom and electronically sign. The CDI & [facility] Coding staff will review the response and follow-up if needed. Please note: Queries are made part of the Legal Health Record. If you have any questions, please contact the author of this message via ITS. Dear David Morejon MD., Patient with methicillin-resistant Staphylococcus aeruginosa bacteremia. Source is endocarditis. History/Risk Factors: HTN, CHF, ESRD WBC :6.0 Lactic acid: 1.7 Blood cultures: Positive for MRSA Vitals signs on admission: Temperature 97.6 F Pulse Rate 62 Respiratory 18 18 Rate Blood Pressure 134/63 133/64 O2 Sat by Pulse 98 Oximetry Other Clinical Indicators: Treatment: IV antibiotics IV Bolus: YES Methicillin-resistant Staphylococcus aeruginosa bacteremia and infective endocarditis, maintained on vancomycin, being followed by Infectious Disease. In your professional opinion, please clarify if these findings signify one of the following conditions, SEPSIS related to MRSA Bcteremia MRSA Bacteremia Alone MTDD
--- NOTE | 2020-02-17 21:10 | CDI ---
Documentation Clarification Form Date: 02/18/2020 From: Soham Romero Phone: If you have a question about this query, please contact Oliva Kurtz, Assistant Refinery Operator at [phone] between 8am and 5pm. Admit Date: 02/02/2020 Discharge Date: 02/09/2020 Patient Name: Sara Desouza Visit Number: [id number] ATTENTION: The Clinical Documentation Specialists (CDI) and [facility] Coding Staff appreciate your assistance in clarifying documentation. Please respond to the clarification below the line at the bottom and electronically sign. The CDI & [facility] Coding staff will review the response and follow-up if needed. Please note: Queries are made part of the Legal Health Record. If you have any questions, please contact the author of this message via ITS. Dear David Morejon MD., Patient with methicillin-resistant Staphylococcus aeruginosa bacteremia. Source is endocarditis. History/Risk Factors: HTN, CHF, ESRD WBC :6.0 Lactic acid: 1.7 Blood cultures: Positive for MRSA Vitals signs on admission: Temperature 97.6 F Pulse Rate 62 Respiratory 18 18 Rate Blood Pressure 134/63 133/64 O2 Sat by Pulse 98 Oximetry Other Clinical Indicators: Treatment: IV antibiotics IV Bolus: YES Methicillin-resistant Staphylococcus aeruginosa bacteremia and infective endocarditis, maintained on vancomycin, being followed by Infectious Disease. In your professional opinion, please clarify if these findings signify one of the following conditions, SEPSIS related to MRSA Bcteremia MRSA Bacteremia Alone MTDD
--- NOTE | 2020-02-19 08:51 | PN ---
PROGRESS NOTE ADDENDUM: Please add: Methicillin-resistant Staphylococcus bacteremia and infective endocarditis maintained on vancomycin. This would be sepsis related to the MRSA bacteremia. MMODL / IJN: [id number] /
== END 2020-02-09 15:43 | disposition home or self-care (01) | DRG 871 ==
LOC: EC 11:50 → 4SSUR 14:32 → INTOOBSV 14:32 → 4SSUR 15:46 → OBSVTOIN 02-02 22:01
PROVIDERS: ADMIT Family Medicine; ATTEND Family Medicine
PROC: 5A1D70Z Performance of Urinary Filtration, Intermittent, Less than 6 Hours Per Day (ICD-10-PCS; principal; 2020-02-02)
PROC: 30233N1 Transfusion of Nonautologous Red Blood Cells into Peripheral Vein, Percutaneous Approach (ICD-10-PCS; principal; 2020-02-02)
DX: A41.01 Sepsis due to Methicillin susceptible Staphylococcus aureus (principal); I33.0 Acute and subacute infective endocarditis; N18.6 End stage renal disease; I50.32 Chronic diastolic (congestive) heart failure; I13.2 Hypertensive heart and chronic kidney disease with heart failure and with stage 5 chronic kidney disease, or end stage renal disease; E87.1 Hypo-osmolality and hyponatremia; I31.3 Pericardial effusion (noninflammatory); E03.9 Hypothyroidism, unspecified; D63.1 Anemia in chronic kidney disease; D69.6 Thrombocytopenia, unspecified; E11.22 Type 2 diabetes mellitus with diabetic chronic kidney disease; E66.9 Obesity, unspecified; E78.00 Pure hypercholesterolemia, unspecified; B95.62 Methicillin resistant Staphylococcus aureus infection as the cause of diseases classified elsewhere; E78.1 Pure hyperglyceridemia; E87.5 Hyperkalemia; I25.10 Atherosclerotic heart disease of native coronary artery without angina pectoris; E11.649 Type 2 diabetes mellitus with hypoglycemia without coma; K76.9 Liver disease, unspecified; E83.89 Other disorders of mineral metabolism; E78.5 Hyperlipidemia, unspecified; I08.1 Rheumatic disorders of both mitral and tricuspid valves; I27.20 Pulmonary hypertension, unspecified; Z79.82 Long term (current) use of aspirin; Z79.4 Long term (current) use of insulin; Z79.899 Other long term (current) drug therapy; Z88.1 Allergy status to other antibiotic agents; Z91.041 Radiographic dye allergy status; Z68.31 Body mass index [BMI] 31.0-31.9, adult; Z99.2 Dependence on renal dialysis; Z82.49 Family history of ischemic heart disease and other diseases of the circulatory system; Z80.9 Family history of malignant neoplasm, unspecified; Z87.440 Personal history of urinary (tract) infections; Z86.14 Personal history of Methicillin resistant Staphylococcus aureus infection; Z87.01 Personal history of pneumonia (recurrent); Z98.890 Other specified postprocedural states
CPT/HCPCS: 36415; 71046; 80048; 80053; 80202; 81001; 83036; 83605; 85025; 85610; 85652; 85730; 86140; 86850; 86900; 86901; 86920; 87040; 87070; 87077; 87086; 87186; 87205; 90935; 93005; 93306; 93312; 93320; 93325; 94760; 96365; 96368; 99284

== ENCOUNTER 2020-02-18 10:54 | Emergency (ER) | payer OTHER ==
[2020-02-18 11:03] VITALS: RESP 18
--- NOTE | 2020-02-18 11:32 | ED ---
General Adult HPI - General Chief complaint: Recheck/Abnormal Lab/Rx Stated complaint: low hemoglobin Time Seen by Provider: 02/18/20 11:20 Source: patient, RN notes reviewed Mode of arrival: ambulatory Limitations: no limitations - History of Present Illness Initial comments: 54-year-old female presents to the emergency room for a chief complaint of low hemoglobin. Patient reports that she was at dialysis today and was told her hemoglobin was 6.7. According to triage note patient admitted to Black stools however now is stating they are just dark and not black. She reports that "she knows for sure it is not blood." She reports she has been tested several times for this. Patient is refusing rectal exam. Patient is denying any abdominal pain. She does admit to some slight shortness of breath that she noticed while crossing the street yesterday. Patient was able to finish her dialysis treatment. Patient has no other complaints at this time including chest pain, abdominal pain, nausea or vomiting, headache, or visual changes. - Related Data Home Medications Medication Instructions Recorded Confirmed Cyclobenzaprine [Flexeril] 5 mg PO HS 09/14/15 02/01/20 cloNIDine HCL 0.3 mg PO TID 12/16/16 02/01/20 Sevelamer [Renvela] 800 mg PO DAILY PRN 08/21/17 02/01/20 Furosemide [Lasix] 120 mg PO DAILY 10/22/17 02/01/20 Prochlorperazine [Compazine] 5 mg PO BID PRN 10/26/17 02/01/20 Sevelamer [Renvela] 3,200 mg PO AC-TID 03/13/18 02/01/20 Gabapentin [Neurontin] 100 mg PO TID 05/17/18 02/01/20 INSULIN LISPRO (humaLOG) [humaLOG] 18 unit SQ QID 07/12/18 02/01/20 Omeprazole 20 mg PO BID 11/01/18 02/01/20 Lidocaine-Prilocaine Cream [Emla 1 applic TOPICAL DAILY PRN 11/21/18 02/01/20 Cream 2.5%/2.5%] hydrALAZINE HCL [Apresoline] 100 mg PO TID 12/14/18 02/01/20 Ascorbic Acid [Vitamin C] 500 mg PO DAILY 11/08/19 02/01/20 Atorvastatin [Lipitor] 40 mg PO HS 11/08/19 02/01/20 HYDROcodone/APAP 7.5-325MG [[place] 1 tab PO TID 11/08/19 02/01/20 7.5-325] Montelukast [Singulair] 10 mg PO DAILY 11/08/19 02/01/20 Olopatadine HCl [Pataday] 1 drops BOTH EYES BID 11/08/19 02/01/20 Insulin Glargine,Hum.rec.anlog 80 unit SQ HS 12/02/19 02/01/20 [Basaglar Kwikpen U-100] Albuterol Sulfate [Proair Hfa] 2 puff INHALATION RT-Q6H PRN 01/28/20 02/01/20 Docusate [Colace] 100 mg PO DAILY 01/28/20 02/01/20 Furosemide [Lasix] 80 mg PO HS 01/28/20 02/01/20 Sodium Polystyrene Sulfonate 30 gm PO SUMOWEFR 01/28/20 02/01/20 [Kayexalate] diazePAM [Valium] 5 mg PO DAILY PRN 01/28/20 02/01/20 rOPINIRole HCL [Requip] 1 mg PO TID 01/28/20 02/01/20 Tiotropium 18 Mcg/Puff [Spiriva] 1 cap INHALATION RT-DAILY PRN 02/01/20 02/01/20 Previous Rx's Medication Instructions Recorded Aspirin EC [Ecotrin Low Dose] 81 mg PO DAILY #30 tablet. 12/17/18 Labetalol [Trandate] 400 mg PO BID #120 tab 12/17/18 Darbepoetin Drew [Aranesp] 60 mcg SQ Q7D syringe 02/08/20 Allergies Allergy/AdvReac Type Severity Reaction Status Date / Time ciprofloxacin [From Cipro] AdvReac AFFECTED Verified 02/18/20 11:03 EYESIGHT ciprofloxacin HCl AdvReac AFFECTED Verified 02/18/20 11:03 [From Cipro] EYESIGHT Iodinated Contrast Media AdvReac RENAL Verified 02/18/20 11:03 FAILURE Review of Systems ROS Statement: Those systems with pertinent positive or pertinent negative responses have been documented in the HPI. ROS Other: All systems not noted in ROS Statement are negative. 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 hemodialysis for acute kidney injury 2 months in 2009 after pancreatic OR, 11/2015 diagnosed w/ chronic kidney disease-hemodialysis /-last hemodialysis 06/02/19, IDDM type II, past DKA, UTI, chronic anemia, frequent body cramping, occasional low back pain, carter's palsy x2, past L leg fx, possible liver disease-recent liver bx-results unknown per pt. History of Any Multi-Drug Resistant Organisms: MRSA Date of last positivie culture/infection: 02/01/20 MDRO Source:: Blood Past Surgical History: Orthopedic Surgery, Uterine Ablation Additional Past Surgical History / Comment(s): Recent liver biopsy done at [facility] but pt states they have never contacted her with the results, 08/26/17 colonoscopy with polypectomy/bx, pancreatic resection at [facility] 2009, bone marrow biopsies X2-last one 05/19/16,. dialysis chest port x 2 with removals, Left arm shunt placement for dialysis - December 2015 and a revision done with shunt. Left forearm Vein Revision - October 2019 Past Anesthesia/Blood Transfusion Reactions: No Reported Reaction Additional Past Anesthesia/Blood Transfusion Reaction / Comment(s): Pt has received blood transfusions without reaction. Past Psychological History: No Psychological Hx Reported Smoking Status: Never smoker Past Alcohol Use History: None Reported Past Drug Use History: None Reported - Past Family History Brother(s) Family Medical History: No Reported History Mother Family Medical History: Cancer Additional Family Medical History / Comment(s): . Father Family Medical History: Hypertension Additional Family Medical History / Comment(s): alcoholism General Exam Limitations: no limitations General appearance: alert, in no apparent distress Head exam: Present: atraumatic, normocephalic, normal inspection Eye exam: Present: normal appearance, PERRL, EOMI. Absent: scleral icterus, conjunctival injection, periorbital swelling ENT exam: Present: normal exam, mucous membranes moist Neck exam: Present: normal inspection, full ROM. Absent: tenderness, meningismus, lymphadenopathy Respiratory exam: Present: normal lung sounds bilaterally. Absent: respiratory distress, wheezes, rales, rhonchi, stridor Cardiovascular Exam: Present: regular rate, normal rhythm, normal heart sounds. Absent: systolic murmur, diastolic murmur, rubs, gallop, clicks GI/Abdominal exam: Present: soft, normal bowel sounds. Absent: distended, tenderness, guarding, rebound, rigid Neurological exam: Present: alert Course Vital Signs 02/18/20 10:59 Temperature 98.2 F Pulse Rate 72 Respiratory 18 Rate Blood Pressure 150/72 O2 Sat by Pulse 96 Oximetry EKG Findings - EKG Comments: EKG Findings:: Normal sinus rhythm, ventricular rate 73, NV interval 162, QTc 471 Medical Decision Making - Medical Decision Making Vitals are stable. CBC shows pancytopenia which is chronic for patient. Hemoglobin is 7.6 which is within normal limits. CMP unremarkable. EKG shows a normal sinus rhythm, no ischemic changes. There cardiomegaly, mild central venous congestion suspected. Subsegmental changes retrocardiac region on the right. Atelectasis favored of early infiltrate. Patient adamantly refuses rectal exam stating she is "sure it is not blood and it is not black." Patient is aware that I cannot evaluate for GI bleed without doing this. At this time patient is stable for discharge home to follow up with primary care. She will return here for any worsening symptoms. - Lab Data Result diagrams: 02/18/20 11:59 02/18/20 11:59 Lab Results 02/18/20 02/18/20 Range/Units 11:59 11:59 WBC 2.1 L (3.8-10.6) k/uL RBC 2.37 L (3.80-5.40) m/uL Hgb 7.6 L (11.4-16.0) gm/dL Hct 23.3 L (34.0-46.0) % MCV 98.0 (80.0-100.0) fL MCH 31.8 (25.0-35.0) pg MCHC 32.5 (31.0-37.0) g/dL RDW 17.2 H (11.5-15.5) % Plt Count 118 L (150-450) k/uL Neutrophils % 75 % Lymphocytes % 12 % Monocytes % 8 % Eosinophils % 3 % Basophils % 1 % Neutrophils # 1.6 (1.3-7.7) k/uL Lymphocytes # 0.3 L (1.0-4.8) k/uL Monocytes # 0.2 (0-1.0) k/uL Eosinophils # 0.1 (0-0.7) k/uL Basophils # 0.0 (0-0.2) k/uL Hypochromasia Slight Anisocytosis Slight Macrocytosis Slight Sodium 138 (137-145) mmol/L Potassium 4.9 (3.5-5.1) mmol/L Chloride 92 L (98-107) mmol/L Carbon Dioxide 34 H (22-30) mmol/L Anion Gap 12 mmol/L BUN 26 H (7-17) mg/dL Creatinine 3.38 H (0.52-1.04) mg/dL Est GFR (CKD-EPI)AfAm 17 (>60 ml/min/1.73 sqM) Est GFR (CKD-EPI)NonAf 15 (>60 ml/min/1.73 sqM) Glucose 71 L (74-99) mg/dL Calcium 9.7 (8.4-10.2) mg/dL Magnesium 1.7 (1.6-2.3) mg/dL Total Bilirubin 0.9 (0.2-1.3) mg/dL AST 20 (14-36) U/L ALT 15 (4-34) U/L Alkaline Phosphatase 123 (38-126) U/L Total Protein 7.2 (6.3-8.2) g/dL Albumin 4.6 (3.5-5.0) g/dL Disposition Clinical Impression: Chronic anemia Disposition: HOME SELF-CARE Condition: Good Instructions (If sedation given, give patient instructions): Anemia (ED) Additional Instructions: Please follow up with primary care in 1-2 days. Please return to the emergency room should she have any worsening symptoms. Is patient prescribed a controlled substance at d/c from ED?: No Referrals: David Bragg MD [Primary Care Provider] - 1-2 days Time of Disposition: 13:07
--- NOTE | 2020-02-18 11:45 | XR ---
EXAMINATION TYPE: XR chest 2V DATE OF EXAM: 02/18/2020 COMPARISON: 02/03/2020 TECHNIQUE: PA and lateral views submitted. HISTORY: Chest pain and shortness of breath FINDINGS: The heart is markedly enlarged. There is a coarsened interstitium. Vascular stent overlying the left are intact. No pneumothorax or pleural effusion. Subsegmental changes medial margin right lung base. IMPRESSION: 1. Severe cardiomegaly. Mild central venous congestion suspected. 2. Subsegmental changes retrocardiac region on the right. Atelectasis favored over early infiltrate c orrelate clinically.
[2020-02-18 12:19] LABS: Anisocytosis Slight; Basophils % (A) 1 %; Eosinophils # (A) 0.1 k/uL (0-0.7); Eosinophils % (A) 3 %; HCT 23.3 % (34.0-46.0); HGB 7.6 gm/dL (11.4-16.0); Hypochromasia Slight; Lymphocytes # (A) 0.3 k/uL (1.0-4.8); Lymphocytes % (A) 12 %; MCH 31.8 pg (25.0-35.0); MCHC 32.5 g/dL (31.0-37.0); Macrocytosis Slight; Monocytes # (A) 0.2 k/uL (0-1.0); Monocytes % (A) 8 %; Neutrophils # (A) 1.6 k/uL (1.3-7.7); Neutrophils % (A) 75 %; Platelet Count 118 k/uL (150-450); RBC 2.37 m/uL (3.80-5.40); RDW 17.2 % (11.5-15.5); WBC 2.1 k/uL (3.8-10.6)
[2020-02-18 12:44] LABS: Albumin 4.6 g/dL (3.5-5.0); Calcium 9.7 mg/dL (8.4-10.2); Magnesium 1.7 mg/dL (1.6-2.3); Potassium 4.9 mmol/L (3.5-5.1); Total Bilirubin 0.9 mg/dL (0.2-1.3); Total Protein 7.2 g/dL (6.3-8.2)
[2020-02-18 13:43] VITALS: BP 172/73; PULSE 82; TEMP 97.9
== END 2020-02-18 13:43 | disposition home or self-care (01) ==
LOC: EC 10:54
DX: D64.9 Anemia, unspecified (principal); D61.818 Other pancytopenia; J98.11 Atelectasis; I13.0 Hypertensive heart and chronic kidney disease with heart failure and stage 1 through stage 4 chronic kidney disease, or unspecified chronic kidney disease; E11.22 Type 2 diabetes mellitus with diabetic chronic kidney disease; N18.9 Chronic kidney disease, unspecified; N17.9 Acute kidney failure, unspecified; I50.9 Heart failure, unspecified; E11.36 Type 2 diabetes mellitus with diabetic cataract; E11.10 Type 2 diabetes mellitus with ketoacidosis without coma; D63.1 Anemia in chronic kidney disease; E78.5 Hyperlipidemia, unspecified; M54.5 Low back pain; Z79.4 Long term (current) use of insulin; Z79.899 Other long term (current) drug therapy; Z79.891 Long term (current) use of opiate analgesic; Z88.1 Allergy status to other antibiotic agents; Z91.041 Radiographic dye allergy status; Z99.2 Dependence on renal dialysis
CPT/HCPCS: 36415; 71046; 80053; 83735; 85025; 93005; 99284

== ENCOUNTER 2020-03-17 10:36 | Emergency (ER) | payer OTHER ==
[2020-03-17] MEDS ORDERED: ACETAMINOPHEN TAB 500 MG TAB PO STA (11:02)
--- NOTE | 2020-03-17 11:20 | ED ---
General Adult HPI - General Source: patient, RN notes reviewed Mode of arrival: ambulatory Limitations: no limitations <Philip Borrego - Last Filed: 03/17/20 13:17> <John Cunningham - Last Filed: 03/17/20 13:47> - General Chief complaint: Recheck/Abnormal Lab/Rx Stated complaint: Sent by PCP - low blood count Time Seen by Provider: 03/17/20 10:51 - History of Present Illness Initial comments: 54-year-old female presents emergency Department with chief complaint of low hemoglobin. Patient states she had dialysis this morning in which they told her her hemoglobin was 6.8. Patient's had chronic confusion for anemia secondary to chronic kidney disease. Patient denies any bleeding. Patient had new catheter placed for dialysis one week ago in which she states she had some complications. Patient states she was hospitalized in [facility]. Patient states that she's been doing well since. Patient states that her fistula of her left arm stopped functioning. Patient denies any cough or cold-like symptoms no dysuria she states she still drinks urine. She has no complaint abdominal pain. Patient did have a mild headache earlier today and she took some acetaminophen earlier this morning. Patient denies any other complaints no sick contacts. (Philip Borrego) - Related Data Home Medications Medication Instructions Recorded Confirmed Cyclobenzaprine [Flexeril] 5 mg PO HS 09/14/15 02/22/20 cloNIDine HCL 0.3 mg PO TID 12/16/16 02/22/20 Sevelamer [Renvela] 800 mg PO DAILY PRN 08/21/17 02/22/20 Furosemide [Lasix] 120 mg PO DAILY 10/22/17 02/22/20 Prochlorperazine [Compazine] 5 mg PO BID PRN 10/26/17 02/22/20 Sevelamer [Renvela] 3,200 mg PO AC-TID 03/13/18 02/22/20 Gabapentin [Neurontin] 100 mg PO TID 05/17/18 02/22/20 INSULIN LISPRO (humaLOG) [humaLOG] 18 unit SQ QID 07/12/18 02/22/20 Omeprazole 20 mg PO BID 11/01/18 02/22/20 Lidocaine-Prilocaine Cream [Emla 1 applic TOPICAL DAILY PRN 11/21/18 02/22/20 Cream 2.5%/2.5%] hydrALAZINE HCL [Apresoline] 100 mg PO TID 12/14/18 02/22/20 Ascorbic Acid [Vitamin C] 500 mg PO DAILY 11/08/19 02/22/20 Atorvastatin [Lipitor] 40 mg PO HS 11/08/19 02/22/20 HYDROcodone/APAP 7.5-325MG [[place] 1 tab PO TID 11/08/19 02/22/20 7.5-325] Montelukast [Singulair] 10 mg PO DAILY 11/08/19 02/22/20 Olopatadine HCl [Pataday] 1 drops BOTH EYES BID 11/08/19 02/22/20 Insulin Glargine,Hum.rec.anlog 80 unit SQ HS 12/02/19 02/22/20 [Basaglar Kwikpen U-100] Albuterol Sulfate [Proair Hfa] 2 puff INHALATION RT-Q6H PRN 01/28/20 02/22/20 Docusate [Colace] 100 mg PO DAILY 01/28/20 02/22/20 Furosemide [Lasix] 80 mg PO HS 01/28/20 02/22/20 Sodium Polystyrene Sulfonate 30 gm PO SUMOWEFR 01/28/20 02/22/20 [Kayexalate] diazePAM [Valium] 5 mg PO DAILY PRN 01/28/20 02/22/20 rOPINIRole HCL [Requip] 1 mg PO TID 01/28/20 02/22/20 Tiotropium 18 Mcg/Puff [Spiriva] 1 cap INHALATION RT-DAILY PRN 02/01/20 02/22/20 Previous Rx's Medication Instructions Recorded Aspirin EC [Ecotrin Low Dose] 81 mg PO DAILY #30 tablet. 12/17/18 Labetalol [Trandate] 400 mg PO BID #120 tab 12/17/18 Darbepoetin Drew [Aranesp] 60 mcg SQ Q7D syringe 02/08/20 Allergies Allergy/AdvReac Type Severity Reaction Status Date / Time ciprofloxacin [From Cipro] AdvReac AFFECTED Verified 03/17/20 10:45 EYESIGHT ciprofloxacin HCl AdvReac AFFECTED Verified 03/17/20 10:45 [From Cipro] EYESIGHT Iodinated Contrast Media AdvReac RENAL Verified 03/17/20 10:45 FAILURE Review of Systems ROS Other: All systems not noted in ROS Statement are negative. <Philip Borrego - Last Filed: 03/17/20 13:17> ROS Other: All systems not noted in ROS Statement are negative. <John Cunningham - Last Filed: 03/17/20 13:47> ROS Statement: Those systems with pertinent positive or pertinent negative responses have been documented in the HPI. 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 hemodialysis for acute kidney injury 2 months in 2009 after pancreatic OR, 11/2015 diagnosed w/ chronic kidney disease-hemodialysis /-last hemodialysis 06/02/19, IDDM type II, past DKA, UTI, chronic anemia, frequent body cramping, occasional low back pain, carter's palsy x2, past L leg fx, possible liver disease-recent liver bx-results unknown per pt. History of Any Multi-Drug Resistant Organisms: MRSA Date of last positivie culture/infection: 02/01/20 MDRO Source:: Blood Past Surgical History: Orthopedic Surgery, Uterine Ablation Additional Past Surgical History / Comment(s): Recent liver biopsy done at [facility] but pt states they have never contacted her with the results, 08/26/17 colonoscopy with polypectomy/bx, pancreatic resection at [facility] 2009, bone marrow biopsies X2-last one 05/19/16,. dialysis chest port x 2 with removals, Left arm shunt placement for dialysis - December 2015 and a revision done with shunt. Left forearm Vein Revision - October 2019 Past Anesthesia/Blood Transfusion Reactions: No Reported Reaction Additional Past Anesthesia/Blood Transfusion Reaction / Comment(s): Pt has received blood transfusions without reaction. Past Psychological History: No Psychological Hx Reported Smoking Status: Never smoker Past Alcohol Use History: None Reported Past Drug Use History: None Reported - Past Family History Brother(s) Family Medical History: No Reported History Mother Family Medical History: Cancer Additional Family Medical History / Comment(s): . Father Family Medical History: Hypertension Additional Family Medical History / Comment(s): alcoholism <Dedoe,Philip M - Last Filed: 03/17/20 13:17> General Exam Limitations: no limitations General appearance: alert, in no apparent distress Head exam: Present: atraumatic, normocephalic, normal inspection Eye exam: Present: normal appearance, PERRL, EOMI. Absent: scleral icterus, conjunctival injection, periorbital swelling ENT exam: Present: normal exam, normal oropharynx, mucous membranes moist, TM's normal bilaterally Neck exam: Present: normal inspection, full ROM. Absent: tenderness, meningismus, lymphadenopathy Respiratory exam: Present: normal lung sounds bilaterally. Absent: respiratory distress, wheezes, rales, rhonchi, stridor Cardiovascular Exam: Present: regular rate, normal rhythm, normal heart sounds. Absent: systolic murmur, diastolic murmur, rubs, gallop, clicks GI/Abdominal exam: Present: soft, normal bowel sounds. Absent: distended, tenderness, guarding, rebound, rigid Neurological exam: Present: alert, oriented X3 Skin exam: Present: warm, dry, intact, normal color. Absent: rash <Philip Borrego - Last Filed: 03/17/20 13:17> Course <John Cunningham - Last Filed: 03/17/20 13:47> Vital Signs 03/17/20 03/17/20 03/17/20 10:42 12:03 12:56 Temperature 101.2 F H Pulse Rate 83 102 H 104 H Respiratory 18 20 18 Rate Blood Pressure 193/77 201/83 177/77 O2 Sat by Pulse 97 96 94 L Oximetry 03/17/20 13:11 Temperature 103.0 F H Pulse Rate 104 H Respiratory 18 Rate Blood Pressure 175/67 O2 Sat by Pulse 93 L Oximetry - Reevaluation(s) Reevaluation #1: 03/17/20 13:46 PA supervision: I personally evaluate the patient [id number]. Present from dialysis with complaints of anemia apparently she was found have a hemoglobin level of 6. 8 repeat here however was 7.7. Patient also was noted have a temperature of up to 103 of an unknown etiology. She did have a new dialysis catheter placement a week ago. Patient has had no cough sore throat runny nose earaches or other complaints. We did suggest that she because of her history medically that she stay in hospital. She is refusing to stay. He is awake alert oriented 4 cognizant of her decisions and demonstrates good decision making capacity though not a good decision. Discharged AGAINST MEDICAL ADVICE. (John Cunningham) Medical Decision Making - Lab Data Result diagrams: 03/17/20 11:24 03/17/20 11:24 <Philip Borrego - Last Filed: 03/17/20 13:17> - Lab Data Result diagrams: 03/17/20 11:24 03/17/20 11:24 <John Cunningham - Last Filed: 03/17/20 13:47> - Medical Decision Making 54-year-old female presented emergency department for fever possible hemoglobin below 7. Hemoglobin is 7.7 currently. Patient does have a history of chronic anemia secondary to chronic kidney disease. Patient found to have a fever in which current temp is 103. Patient was given acetaminophen. Patient had complete workup including labs, urinalysis, coronavirus testing, x-ray there is no clear source for infection though and concern for possible bacteremia secondary to new catheter placed one week ago. I did recommend the patient to be admitted for IV antibiotics, pending blood culture, infectious disease evaluation. Patient states that she wants to go home she understands the risk of going home including . Patient is awake, alert and orientated she is capable to make her own decisions and she does understand and voices her understanding that she may from this infection. Patient's PCP was updated. Patient was strongly advised again to stay in which I did have a lengthy discussion with the patient. Patient states she'll return if she worsens. (Philip Borrego) - Lab Data Lab Results 03/17/20 03/17/20 03/17/20 Range/Units 11:24 11:24 11:24 WBC 7.4 (3.8-10.6) k/uL RBC 2.45 L (3.80-5.40) m/uL Hgb 7.7 L (11.4-16.0) gm/dL Hct 23.6 L (34.0-46.0) % MCV 96.4 (80.0-100.0) fL MCH 31.3 (25.0-35.0) pg MCHC 32.5 (31.0-37.0) g/dL RDW 18.0 H (11.5-15.5) % Plt Count 120 L (150-450) k/uL Neutrophils % 95 % Lymphocytes % 2 % Monocytes % 3 % Eosinophils % 1 % Basophils % 0 % Neutrophils # 7.0 (1.3-7.7) k/uL Lymphocytes # 0.1 L (1.0-4.8) k/uL Monocytes # 0.2 (0-1.0) k/uL Eosinophils # 0.1 (0-0.7) k/uL Basophils # 0.0 (0-0.2) k/uL Anisocytosis Slight Macrocytosis Slight Sodium 136 L (137-145) mmol/L Potassium 4.4 (3.5-5.1) mmol/L Chloride 90 L (98-107) mmol/L Carbon Dioxide 38 H (22-30) mmol/L Anion Gap 8 mmol/L BUN 21 H (7-17) mg/dL Creatinine 2.81 H (0.52-1.04) mg/dL Est GFR (CKD-EPI)AfAm 21 (>60 ml/min/1.73 sqM) Est GFR (CKD-EPI)NonAf 19 (>60 ml/min/1.73 sqM) Glucose 168 H (74-99) mg/dL Plasma Lactic Acid Micha 2.5 H* (0.7-2.0) mmol/L Calcium 9.0 (8.4-10.2) mg/dL Total Bilirubin 1.0 (0.2-1.3) mg/dL AST 19 (14-36) U/L ALT 20 (4-34) U/L Alkaline Phosphatase 121 (38-126) U/L Total Protein 6.4 (6.3-8.2) g/dL Albumin 3.9 (3.5-5.0) g/dL Lipase 40 (23-300) U/L Urine Color Urine Appearance (Clear) Urine pH (5.0-8.0) Ur Specific [place] (1.001-1.035) Urine Protein (Negative) Urine Glucose (UA) (Negative) Urine Ketones (Negative) Urine Blood (Negative) Urine Nitrite (Negative) Urine Bilirubin (Negative) Urine Urobilinogen (<2.0) mg/dL Ur Leukocyte Esterase (Negative) Urine RBC (0-5) /hpf Urine WBC (0-5) /hpf Ur Squamous Epith Cells (0-4) /hpf Urine Bacteria (None) /hpf Hyaline Casts (0-2) /lpf Coronavirus (PCR) (Not Detectd) Blood Type Blood Type Recheck Bld Type Recheck Status Antibody Screen Spec Expiration Date 03/17/20 03/17/20 03/17/20 Range/Units 11:24 11:35 11:35 WBC (3.8-10.6) k/uL RBC (3.80-5.40) m/uL Hgb (11.4-16.0) gm/dL Hct (34.0-46.0) % MCV (80.0-100.0) fL MCH (25.0-35.0) pg MCHC (31.0-37.0) g/dL RDW (11.5-15.5) % Plt Count (150-450) k/uL Neutrophils % % Lymphocytes % % Monocytes % % Eosinophils % % Basophils % % Neutrophils # (1.3-7.7) k/uL Lymphocytes # (1.0-4.8) k/uL Monocytes # (0-1.0) k/uL Eosinophils # (0-0.7) k/uL Basophils # (0-0.2) k/uL Anisocytosis Macrocytosis Sodium (137-145) mmol/L Potassium (3.5-5.1) mmol/L Chloride (98-107) mmol/L Carbon Dioxide (22-30) mmol/L Anion Gap mmol/L BUN (7-17) mg/dL Creatinine (0.52-1.04) mg/dL Est GFR (CKD-EPI)AfAm (>60 ml/min/1.73 sqM) Est GFR (CKD-EPI)NonAf (>60 ml/min/1.73 sqM) Glucose (74-99) mg/dL Plasma Lactic Acid Micha (0.7-2.0) mmol/L Calcium (8.4-10.2) mg/dL Total Bilirubin (0.2-1.3) mg/dL AST (14-36) U/L ALT (4-34) U/L Alkaline Phosphatase (38-126) U/L Total Protein (6.3-8.2) g/dL Albumin (3.5-5.0) g/dL Lipase (23-300) U/L Urine Color Yellow Urine Appearance Cloudy H (Clear) Urine pH 8.5 H (5.0-8.0) Ur Specific [place] 1.008 (1.001-1.035) Urine Protein 3+ H (Negative) Urine Glucose (UA) 1+ H (Negative) Urine Ketones Negative (Negative) Urine Blood Negative (Negative) Urine Nitrite Negative (Negative) Urine Bilirubin Negative (Negative) Urine Urobilinogen <2.0 (<2.0) mg/dL Ur Leukocyte Esterase Small H (Negative) Urine RBC <1 (0-5) /hpf Urine WBC 5 (0-5) /hpf Ur Squamous Epith Cells 11 H (0-4) /hpf Urine Bacteria Rare H (None) /hpf Hyaline Casts 1 (0-2) /lpf Coronavirus (PCR) Not Detected (Not Detectd) Blood Type A Positive Blood Type Recheck A Pos Bld Type Recheck Status No Antibody Screen NEGATIVE Spec Expiration Date 03/20/2020 7949 Disposition Is patient prescribed a controlled substance at d/c from ED?: No <Philip Borrego - Last Filed: 03/17/20 13:17> <John Cunningham - Last Filed: 03/17/20 13:47> Clinical Impression: Fever, Bacteremia, Chronic renal failure, Anemia Disposition: Left Against Medical Advice Condition: Serious Referrals: David Bragg MD [Primary Care Provider] - 1-2 days
[2020-03-17] MEDS ORDERED: hydrALAZINE HCL 20 MG/ML 1 ML VIAL IVP STA (11:21)
[2020-03-17 11:45] LABS: Anisocytosis Slight; Basophils % (A) 0 %; Eosinophils # (A) 0.1 k/uL (0-0.7); Eosinophils % (A) 1 %; HCT 23.6 % (34.0-46.0); HGB 7.7 gm/dL (11.4-16.0); Lymphocytes # (A) 0.1 k/uL (1.0-4.8); Lymphocytes % (A) 2 %; MCH 31.3 pg (25.0-35.0); MCHC 32.5 g/dL (31.0-37.0); MCV 96.4 fL (80.0-100.0); Macrocytosis Slight; Mean Platelet Volume 6.9; Monocytes # (A) 0.2 k/uL (0-1.0); Monocytes % (A) 3 %; Neutrophils % (A) 95 %; Platelet Count 120 k/uL (150-450); RBC 2.45 m/uL (3.80-5.40); WBC 7.4 k/uL (3.8-10.6)
[2020-03-17 11:59] LABS: Albumin 3.9 g/dL (3.5-5.0); Potassium 4.4 mmol/L (3.5-5.1); Total Protein 6.4 g/dL (6.3-8.2)
[2020-03-17 12:26] LABS: Appearance,Urine Cloudy (Clear); Bacteria,Urine Rare /hpf; Bilirubin,Urine Negative (Negative); Blood,Urine Negative (Negative); Color,Urine Yellow; Glucose,Urine (UA) 1+ (Negative); Hyaline Casts,Urine 1 /lpf (0-2); Ketones,Urine Negative (Negative); Leukocyte Esterase,Urine Small (Negative); Nitrite,Urine Negative (Negative); PH, Urine 8.5 (5.0-8.0); Protein,Urine 3+ (Negative); RBC,Urine <1 /hpf (0-5); Specific Gravity,Urine 1.008 (1.001-1.035); Squamous Epithelial Cell,Urine 11 /hpf (0-4); Urobilinogen,Urine <2.0 mg/dL (<2.0); WBC,Urine 5 /hpf (0-5)
[2020-03-17 12:57] VITALS: RESP 18
--- NOTE | 2020-03-17 13:03 | XR ---
EXAMINATION TYPE: XR chest 2V DATE OF EXAM: 03/17/2020 CLINICAL HISTORY: fever. TECHNIQUE: Frontal and lateral view of the chest. COMPARISON: 02/18/2020 chest radiograph FINDINGS: Right internal jugular hemodialysis catheter distal tip over the right atrium. Left subcla vian/axillary vascular stent redemonstrated. Redemonstrated marked cardiomegaly. Mediastinal silhouet te is within normal limits for size. Pulmonary vasculature is again mildly prominent centrally. There is no focal air space opacity, pleural effusion, or pneumothorax seen. The osseous structures are in tact. IMPRESSION: No focal air space opacity.
[2020-03-17] MEDS ORDERED: cefTRIAXone IN SWFI 1,000 MG/10 ML SYRINGE IVP STA (13:17)
[2020-03-17 16:58] VITALS: BP 173/76; PULSE 103; TEMP 102.9
== END 2020-03-17 13:54 | disposition left against medical advice (07) ==
LOC: EC 10:36
DX: D63.1 Anemia in chronic kidney disease (principal); E11.22 Type 2 diabetes mellitus with diabetic chronic kidney disease; I13.0 Hypertensive heart and chronic kidney disease with heart failure and stage 1 through stage 4 chronic kidney disease, or unspecified chronic kidney disease; N18.9 Chronic kidney disease, unspecified; I50.9 Heart failure, unspecified; R78.81 Bacteremia; E78.5 Hyperlipidemia, unspecified; E11.36 Type 2 diabetes mellitus with diabetic cataract; Z53.29 Procedure and treatment not carried out because of patient's decision for other reasons; Z20.828 Contact with and (suspected) exposure to other viral communicable diseases; Z79.4 Long term (current) use of insulin; Z79.51 Long term (current) use of inhaled steroids; Z79.899 Other long term (current) drug therapy; Z88.1 Allergy status to other antibiotic agents; Z91.041 Radiographic dye allergy status; Z99.2 Dependence on renal dialysis
CPT/HCPCS: 36415; 86900; 86901; 80053; 83605; 83690; 85025; 86850; 81001; 87040; 87635; 71046; 99283; 96374; 96375; J0360; J0696

== ENCOUNTER 2020-03-17 16:19 | Inpatient (IN) | payer OTHER ==
[2020-03-17] MEDS ORDERED: ACETAMINOPHEN TAB 500 MG TAB PO STA (16:48)
[2020-03-17] MEDS ORDERED: IBUPROFEN 600 MG TAB PO STA (16:48)
--- NOTE | 2020-03-17 16:49 | ED ---
Fever HPI - General Chief Complaint: Fever Stated Complaint: Revisit,Fever Time Seen by Provider: 03/17/20 16:34 Source: patient, RN notes reviewed, old records reviewed Mode of arrival: ambulatory Limitations: no limitations - History of Present Illness Initial Comments: This is a 62-year-old female DF for evaluation patient Dese for evaluation regards to fever. Patient was seen in ER earlier today she was evaluated for low hemoglobin which she is sent out AGAINST MEDICAL ADVICE. Patient developed fever weakness and further not feeling well. MD Complaint: fever, malaise, weakness -: hour(s) Temperature Source: subjective Context: multiple patients with similar symptoms Associated Symptoms: chills, myalgias, headache, shortness of breath Treatments Prior to Arrival: none - Related Data Home Medications Medication Instructions Recorded Confirmed Cyclobenzaprine [Flexeril] 5 mg PO HS 09/14/15 03/17/20 cloNIDine HCL 0.3 mg PO TID 12/16/16 03/17/20 Sevelamer [Renvela] 800 mg PO DAILY PRN 08/21/17 03/17/20 Furosemide [Lasix] 120 mg PO DAILY 10/22/17 03/17/20 Prochlorperazine [Compazine] 5 mg PO BID PRN 10/26/17 03/17/20 Sevelamer [Renvela] 3,200 mg PO AC-TID 03/13/18 03/17/20 Gabapentin [Neurontin] 100 mg PO TID 05/17/18 03/17/20 INSULIN LISPRO (humaLOG) [humaLOG] 18 unit SQ ACHS 07/12/18 03/17/20 Omeprazole 20 mg PO BID 11/01/18 03/17/20 Lidocaine-Prilocaine Cream [Emla 1 applic TOPICAL DAILY PRN 11/21/18 03/17/20 Cream 2.5%/2.5%] hydrALAZINE HCL [Apresoline] 100 mg PO TID 12/14/18 03/17/20 Ascorbic Acid [Vitamin C] 500 mg PO DAILY 11/08/19 03/17/20 Atorvastatin [Lipitor] 40 mg PO HS 11/08/19 03/17/20 HYDROcodone/APAP 7.5-325MG [Sixes 1 tab PO TID PRN 11/08/19 03/17/20 7.5-325] Montelukast [Singulair] 10 mg PO HS 11/08/19 03/17/20 Olopatadine HCl [Pataday] 1 drops BOTH EYES BID 11/08/19 03/17/20 Insulin Glargine,Hum.rec.anlog 80 unit SQ HS 12/02/19 03/17/20 [Basaglar Kwikpen U-100] Albuterol Sulfate [Proair Hfa] 2 puff INHALATION RT-Q6H PRN 01/28/20 03/17/20 Docusate [Colace] 100 mg PO DAILY 01/28/20 03/17/20 Furosemide [Lasix] 80 mg PO HS 01/28/20 03/17/20 Sodium Polystyrene Sulfonate 30 gm PO SUMOWEFR 01/28/20 03/17/20 [Kayexalate] diazePAM [Valium] 5 mg PO DAILY PRN 01/28/20 03/17/20 rOPINIRole HCL [Requip] 1 mg PO TID 01/28/20 03/17/20 Tiotropium 18 Mcg/Puff [Spiriva] 1 cap INHALATION RT-DAILY PRN 02/01/20 03/17/20 INSULIN LISPRO (HumaLOG) [humaLOG] See Protocol SQ ACHS 03/17/20 03/17/20 Promethazine 6.25MG/5Ml [Phenergan 12.5 mg PO Q6HR PRN 03/17/20 03/17/20 Syrup] Previous Rx's Medication Instructions Recorded Aspirin EC [Ecotrin Low Dose] 81 mg PO DAILY #30 tablet. 12/17/18 Labetalol [Trandate] 400 mg PO BID #120 tab 12/17/18 Allergies Allergy/AdvReac Type Severity Reaction Status Date / Time ciprofloxacin [From Cipro] AdvReac AFFECTED Verified 03/17/20 17:50 EYESIGHT ciprofloxacin HCl AdvReac AFFECTED Verified 03/17/20 17:50 [From Cipro] EYESIGHT Iodinated Contrast Media AdvReac RENAL Verified 03/17/20 17:50 FAILURE Review of Systems ROS Statement: Those systems with pertinent positive or pertinent negative responses have been documented in the HPI. ROS Other: All systems not noted in ROS Statement are negative. 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 hemodialysis for acute kidney injury 2 months in 2009 after pancreatic OR, 11/2015 diagnosed w/ chronic kidney disease-hemodialysis -last hemodialysis 06/02/19, IDDM type II, past DKA, UTI, chronic anemia, frequent body cramping, occasional low back pain, carter's palsy x2, past L leg fx, possible liver disease-recent liver bx-results unknown per pt. History of Any Multi-Drug Resistant Organisms: MRSA Date of last positivie culture/infection: 02/01/20 MDRO Source:: Blood Past Surgical History: Orthopedic Surgery, Uterine Ablation Additional Past Surgical History / Comment(s): Recent liver biopsy done at [place] but pt states they have never contacted her with the results, 08/26/17 colonoscopy with polypectomy/bx, pancreatic resection at [facility] 2009, bone marrow biopsies X2-last one 05/19/16,. dialysis chest port x 2 with removals, Left arm shunt placement for dialysis - December 2015 and a revision done with shunt. Left forearm Vein Revision - October 2019 Past Anesthesia/Blood Transfusion Reactions: No Reported Reaction Additional Past Anesthesia/Blood Transfusion Reaction / Comment(s): Pt has received blood transfusions without reaction. Past Psychological History: No Psychological Hx Reported Smoking Status: Never smoker Past Alcohol Use History: None Reported Past Drug Use History: None Reported - Past Family History Brother(s) Family Medical History: No Reported History Mother Family Medical History: Cancer Additional Family Medical History / Comment(s): . Father Family Medical History: Hypertension Additional Family Medical History / Comment(s): alcoholism General Exam Limitations: no limitations General appearance: alert, in no apparent distress Head exam: Present: atraumatic, normocephalic, normal inspection Eye exam: Present: normal appearance, PERRL, EOMI. Absent: scleral icterus, conjunctival injection, periorbital swelling ENT exam: Present: normal exam, mucous membranes moist Neck exam: Present: normal inspection. Absent: tenderness, meningismus, l ymphadenopathy Respiratory exam: Present: normal lung sounds bilaterally. Absent: respiratory distress, wheezes, rales, rhonchi, stridor Cardiovascular Exam: Present: regular rate, normal rhythm, normal heart sounds. Absent: systolic murmur, diastolic murmur, rubs, gallop, clicks GI/Abdominal exam: Present: soft, normal bowel sounds. Absent: distended, tenderness, guarding, rebound, rigid Extremities exam: Present: normal inspection, full ROM, normal capillary refill. Absent: tenderness, pedal edema, joint swelling, calf tenderness Back exam: Present: normal inspection Neurological exam: Present: alert, oriented X3, CN II-XII intact Psychiatric exam: Present: normal affect, normal mood Skin exam: Present: warm, dry, intact, normal color. Absent: rash Course Vital Signs 03/17/20 03/17/20 03/17/20 16:21 17:24 18:00 Temperature 103.5 F H 101.4 F H Pulse Rate 99 90 87 Respiratory 18 18 18 Rate Blood Pressure 163/64 148/59 129/90 O2 Sat by Pulse 92 L 100 100 Oximetry - Reevaluation(s) Reevaluation #1: 03/17/20 17:33 Medical records reviewed 03/17/20 17:33 Prior ER visit is also reviewed Reevaluation #2: 03/17/20 19:02 Spoke with patient regarding findings, questions have been answered Reevaluation #3: 03/17/20 19:03 Patient has no real significant improvement in symptoms here in the ER - Consultations Consultation #1: Spoke with Dr. Bragg and agrees to admit this patient Medical Decision Making - Medical Decision Making 54 female DF for evaluation patient was in ER earlier today did leave that she is seeing well presents with recurrent fever will admit for infectious disease consult regarding fever currently covert negative pneumonia negative, worsening renal failure and anemia, GI will see patient as well as nephrology - Lab Data Result diagrams: 03/17/20 17:07 03/17/20 17:07 Lab Results 03/17/20 03/17/20 03/17/20 Range/Units 17:07 17:07 17:07 WBC 7.0 (3.8-10.6) k/uL RBC 2.17 L (3.80-5.40) m/uL Hgb 6.9 L* (11.4-16.0) gm/dL Hct 20.8 L (34.0-46.0) % MCV 95.8 (80.0-100.0) fL MCH 32.0 (25.0-35.0) pg MCHC 33.4 (31.0-37.0) g/dL RDW 17.5 H (11.5-15.5) % Plt Count 100 L (150-450) k/uL Neutrophils % 93 % Lymphocytes % 2 % Monocytes % 4 % Eosinophils % 0 % Basophils % 0 % Neutrophils # 6.5 (1.3-7.7) k/uL Lymphocytes # 0.1 L (1.0-4.8) k/uL Monocytes # 0.3 (0-1.0) k/uL Eosinophils # 0.0 (0-0.7) k/uL Basophils # 0.0 (0-0.2) k/uL Anisocytosis Slight PT 11.1 (9.0-12.0) sec INR 1.1 (<1.2) APTT 24.2 (22.0-30.0) sec D-Dimer 8.25 H (<0.60) mg/L FEU Sodium 131 L (137-145) mmol/L Potassium 4.5 (3.5-5.1) mmol/L Chloride 89 L (98-107) mmol/L Carbon Dioxide 34 H (22-30) mmol/L Anion Gap 8 mmol/L BUN 27 H (7-17) mg/dL Creatinine 3.37 H (0.52-1.04) mg/dL Est GFR (CKD-EPI)AfAm 17 (>60 ml/min/1.73 sqM) Est GFR (CKD-EPI)NonAf 15 (>60 ml/min/1.73 sqM) Glucose 207 H (74-99) mg/dL Plasma Lactic Acid Micha (0.7-2.0) mmol/L Calcium 8.7 (8.4-10.2) mg/dL Magnesium 1.3 L (1.6-2.3) mg/dL Total Bilirubin 0.8 (0.2-1.3) mg/dL AST 21 (14-36) U/L ALT 18 (4-34) U/L Alkaline Phosphatase 113 (38-126) U/L Lactate Dehydrogenase 489 (313-618) U/L C-Reactive Protein 56.2 H (<10.0) mg/L Total Protein 5.9 L (6.3-8.2) g/dL Albumin 3.6 (3.5-5.0) g/dL Coronavirus (PCR) (Not Detectd) 03/17/20 03/17/20 Range/Units 17:07 17:40 WBC (3.8-10.6) k/uL RBC (3.80-5.40) m/uL Hgb (11.4-16.0) gm/dL Hct (34.0-46.0) % MCV (80.0-100.0) fL MCH (25.0-35.0) pg MCHC (31.0-37.0) g/dL RDW (11.5-15.5) % Plt Count (150-450) k/uL Neutrophils % % Lymphocytes % % Monocytes % % Eosinophils % % Basophils % % Neutrophils # (1.3-7.7) k/uL Lymphocytes # (1.0-4.8) k/uL Monocytes # (0-1.0) k/uL Eosinophils # (0-0.7) k/uL Basophils # (0-0.2) k/uL Anisocytosis PT (9.0-12.0) sec INR (<1.2) APTT (22.0-30.0) sec D-Dimer (<0.60) mg/L FEU Sodium (137-145) mmol/L Potassium (3.5-5.1) mmol/L Chloride (98-107) mmol/L Carbon Dioxide (22-30) mmol/L Anion Gap mmol/L BUN (7-17) mg/dL Creatinine (0.52-1.04) mg/dL Est GFR (CKD-EPI)AfAm (>60 ml/min/1.73 sqM) Est GFR (CKD-EPI)NonAf (>60 ml/min/1.73 sqM) Glucose (74-99) mg/dL Plasma Lactic Acid Micha 0.9 (0.7-2.0) mmol/L Calcium (8.4-10.2) mg/dL Magnesium (1.6-2.3) mg/dL Total Bilirubin (0.2-1.3) mg/dL AST (14-36) U/L ALT (4-34) U/L Alkaline Phosphatase (38-126) U/L Lactate Dehydrogenase (313-618) U/L C-Reactive Protein (<10.0) mg/L Total Protein (6.3-8.2) g/dL Albumin (3.5-5.0) g/dL Coronavirus (PCR) Not Detected (Not Detectd) - EKG Data -: EKG Interpreted by Me (EKG is sinus rhythm 8099 SD 1:30 QRS 100 QTc 436) - Radiology Data Radiology results: report reviewed (Chest x-rays negative for acute disease), image reviewed Disposition Clinical Impression: Anemia, Acute renal failure, Fever Disposition: ADMITTED IP TO THIS HOSP Condition: Fair Is patient prescribed a controlled substance at d/c from ED?: No Referrals: David Bragg MD [Primary Care Provider] - 1-2 days
--- NOTE | 2020-03-17 17:23 | XR ---
EXAMINATION TYPE: XR chest 1V portable DATE OF EXAM: 03/17/2020 COMPARISON: 03/17/2020 HISTORY: Pneumonia. Fever. TECHNIQUE: FINDINGS: Heart is enlarged. There is no gross heart failure. There is mild pulmonary congestion but no obvious heart failure. There is right central venous catheter with tip in the right atrium. There are chest leads. There is no definite pleural effusion. IMPRESSION: Cardiomegaly. Increased pulmonary vascularity unchanged. No definite heart failure.
[2020-03-17 17:26] LABS: Anisocytosis Slight; Basophils % (A) 0 %; Eosinophils % (A) 0 %; HCT 20.8 % (34.0-46.0); Lymphocytes # (A) 0.1 k/uL (1.0-4.8); Lymphocytes % (A) 2 %; MCHC 33.4 g/dL (31.0-37.0); MCV 95.8 fL (80.0-100.0); Mean Platelet Volume 7.4; Monocytes # (A) 0.3 k/uL (0-1.0); Monocytes % (A) 4 %; Neutrophils # (A) 6.5 k/uL (1.3-7.7); Neutrophils % (A) 93 %; Platelet Count 100 k/uL (150-450); RBC 2.17 m/uL (3.80-5.40); RDW 17.5 % (11.5-15.5)
[2020-03-17 17:34] LABS: Albumin 3.6 g/dL (3.5-5.0); C Reactive Protein 56.2 mg/L (<10.0); Calcium 8.7 mg/dL (8.4-10.2); Magnesium 1.3 mg/dL (1.6-2.3); Potassium 4.5 mmol/L (3.5-5.1); Total Bilirubin 0.8 mg/dL (0.2-1.3); Total Protein 5.9 g/dL (6.3-8.2)
[2020-03-17 17:41] LABS: INR 1.1 (<1.2); Partial Thromboplastin Time 24.2 sec (22.0-30.0); Prothrombin Time 11.1 sec (9.0-12.0)
[2020-03-17 17:57] LABS: HGB 6.9 gm/dL (11.4-16.0)
[2020-03-17 18:00] LABS: D-Dimer 8.25 mg/L FEU (<0.60)
[2020-03-17] MEDS ORDERED: SODIUM CHLORIDE 0.9% 1,000 ML IV ONE (18:59)
[2020-03-17] MEDS: MAGNESIUM SULFATE-D5W PMX 1 GM in DEXTROSE/WATER 1 100ML.BAG IVPB SCH ×2 (19:19→20:42)
[2020-03-17] MEDS ORDERED: ACETAMINOPHEN TAB 500 MG TAB PO PRN (20:49)
[2020-03-17] MEDS ORDERED: PROMETHAZINE HCL 6.25 MG/5 ML CUP PO PRN (21:09)
[2020-03-17] MEDS ORDERED: SEVELAMER 800 MG TAB PO PRN (21:09)
[2020-03-17] MEDS ORDERED: PROCHLORPERAZINE 5 MG TAB PO PRN (21:09)
[2020-03-17] MEDS ORDERED: LIDOCAINE-PRILOCAINE 2.5-2.5% CREAM 5 GM TUBE TOPICAL PRN (21:09)
[2020-03-17] MEDS ORDERED: ALBUTEROL HFA INHALER INHALATION PRN (21:09)
[2020-03-17] MEDS ORDERED: IPRATROPIUM 0.5 MG/2.5 ML NEBU INHALATION PRN (21:09)
[2020-03-17] MEDS ORDERED: IPRATROPIUM-ALBUTEROL 3 ML NEB INHALATION PRN (21:33)
[2020-03-17 21:46] LABS: Glucose,Whole Blood 361 mg/dL (75-99)
[2020-03-17] MEDS: GABAPENTIN 100 MG CAP PO SCH (21:52)
[2020-03-17] MEDS: hydrALAZINE HCL 50 MG TAB PO SCH (21:52)
[2020-03-17] MEDS: cloNIDine HCL 0.1 MG TAB PO SCH (21:52)
[2020-03-17] MEDS: INSULIN DETEMIR (LEVEMIR) 100 UNIT/ML SYR SQ SCH (23:33)
--- NOTE | 2020-03-17 23:39 | CT ---
EXAMINATION TYPE: CT chest abdomen wo con DATE OF EXAM: 03/17/2020 COMPARISON: 01/20/2020 and 01/28/2020 HISTORY: CAP Short of breath CT DLP: 616.90 mGycm Automated exposure control for dose reduction was used. Heart is enlarged. There is moderate pericardial effusion. There is no pleural effusion. There is andreea e groundglass interstitial infiltrate in the upper and lower lobes bilaterally. There are a few media stinal lymph nodes that measure up to 1.5 cm. There are no hilar masses. Liver shows no focal defect. Gallbladder is intact. There is vascular calcification. Stomach is intac t. There is no evidence of pancreatic mass. Spleen is enlarged and measures 17 cm. Kidneys are small. There is atrophy. There is no hydronephrosis. There are a few abdominal retroperitoneal lymph nodes measuring up to 1.5 cm. There is no ascites. There is no sign of free air. There is no evidence of a bowel obstruction. I see no bony destructive process. There is no thoracic or lumbar compression frac ture. There is mild sclerosis in the vertebra that could relate to chronic renal failure. IMPRESSION: Moderate pericardial effusion. Cardiomegaly. No change. Splenomegaly without change. There is clearing of the abdominal ascites compared to old exam. Groundglass pulmonary interstitial infiltrates unchanged. No suspicious pulmonary mass. There is nonspecific mediastinal and abdominal lymphadenopathy.
[2020-03-17 23:49] LABS: Ferritin 2818.8 ng/mL (10.0-291.0)
[2020-03-18 06:43] LABS: Anisocytosis Slight; Basophils % (A) 0 %; Eosinophils % (A) 0 %; HCT 20.2 % (34.0-46.0); Lymphocytes # (A) 0.2 k/uL (1.0-4.8); Lymphocytes % (A) 3 %; MCH 31.7 pg (25.0-35.0); MCHC 32.6 g/dL (31.0-37.0); MCV 97.2 fL (80.0-100.0); Macrocytosis Slight; Mean Platelet Volume 7.4; Monocytes # (A) 0.3 k/uL (0-1.0); Monocytes % (A) 5 %; Neutrophils # (A) 4.8 k/uL (1.3-7.7); Neutrophils % (A) 90 %; Poikilocytosis Slight; RBC 2.08 m/uL (3.80-5.40); WBC 5.3 k/uL (3.8-10.6)
[2020-03-18 06:57] LABS: HGB 6.6 gm/dL (11.4-16.0)
[2020-03-18 07:07] LABS: Glucose,Whole Blood 249 mg/dL (75-99)
[2020-03-18] MEDS: INSULIN ASPART (NovoLOG) 100 UNIT/ML VIAL SQ SCH ×4 (07:32→21:01)
[2020-03-18] MEDS: SODIUM POLYSTYRENE SULFONATE 15 GM/60 ML BOTTLE PO SCH (07:32)
[2020-03-18] MEDS: ASCORBIC ACID 500 MG TAB PO SCH (07:33)
[2020-03-18] MEDS: PANTOPRAZOLE 40 MG TABLET PO SCH ×2 (07:33→21:24)
[2020-03-18] MEDS: KETOTIFEN 0.025% OPHTH DROPS 5 ML BTL BOTH EYES SCH ×2 (07:33→21:25)
[2020-03-18] MEDS: hydrALAZINE HCL 50 MG TAB PO SCH ×3 (07:33→21:23)
[2020-03-18] MEDS: cloNIDine HCL 0.1 MG TAB PO SCH ×3 (07:33→21:23)
[2020-03-18] MEDS: GABAPENTIN 100 MG CAP PO SCH ×3 (07:33→21:24)
[2020-03-18] MEDS: ASPIRIN 81 MG PO SCH (07:33)
[2020-03-18] MEDS: LABETALOL 200 MG TAB PO SCH ×2 (07:33→21:24)
[2020-03-18] MEDS: DOCUSATE 100 MG CAP PO SCH (07:34)
[2020-03-18] MEDS: SEVELAMER 800 MG TAB PO SCH ×3 (07:34→16:55)
[2020-03-18] MEDS: FUROSEMIDE 80 MG TAB PO SCH ×2 (07:35→21:24)
[2020-03-18 09:02] LABS: Platelet Count 81 k/uL (150-450)
[2020-03-18 09:23] LABS: African American GFR (CKD) 11.9 (60.0-200.0); Albumin 3.6 g/dL (3.80-4.90); Albumin/Globulin Ratio 2.12 (1.60-3.17); Anion Gap 10.1 mmol/L (4.00-12.00); BUN/Creat Ratio 8.04 Ratio (12.00-20.00); Calcium 8.8 mg/dL (8.7-10.3); Carbon Dioxide 32.9 mmol/L (21.6-31.8); Globulin 1.7 g/dL (1.6-3.3); Non-African American GFR(CKD) 10.2 (60.0-200.0); Total Bilirubin 0.7 mg/dL (0.3-1.2); Total Protein 5.3 g/dL (6.2-8.2)
--- NOTE | 2020-03-18 11:17 | HP ---
HISTORY AND PHYSICAL 54-year-old white female regards to fever. Was seen in the ER today with low hemoglobin. She signed out AGAINST MEDICAL ADVICE. She came back to the ER. She was given one unit of blood last night. She was given another unit today as her hemoglobin still dropped down in the 6s today. Hematology consulted. She also has some chills, myalgias, headache, shortness of breath. MEDICATIONS: Home medicines are: Flexeril 5 mg daily, clonidine 0.3 t.i.d. Renvela 800 daily, Lasix 120 daily, Compazine 5 mg b.i.d., Neurontin 100 t.i.d., Humalog 18 units subcu a.c. and q.h.s., omeprazole 20 b.i.d., EMLA cream daily, Apresoline 100 t.i.d., Lipitor 40 daily, Dunlap 7.5 t.i.d., Singulair 10 mg daily, Pataday 1 drop both eyes b.i.d., Basaglar Quick Pen 80 units at night, albuterol HFA 2 puffs q.4 hours p.r.n., Lasix 80 mg daily, Kayexalate 30 mg Thursday, Thursday, Thursday, and Thursday. Valium 5 mg daily. Requip 1 mg t.i.d. for restless legs. Spiriva 1 puff daily. Phenergan for cough syrup. ALLERGIES: CIPRO. REVIEW OF SYSTEMS: Fourteen-point review of systems negative except for mentioned in HPI. PAST MEDICAL HISTORY: Blood disorder, heart failure, diabetes mellitus, dialysis, dyslipidemia, hypertension, liver disease, pneumonia, renal disease, hypertriglyceridemia, acute on chronic pancreatitis, chronic kidney disease, Hoffman's palsy, liver disease, history of MRSA. PAST SURGICAL HISTORY: Orthopedic surgery, uterine ablation and recent liver biopsy, left arm shunt placement for dialysis. SOCIAL HISTORY: He does not smoke or alcohol or do drugs. FAMILY HISTORY: Brother and mother with cancer. Father with alcoholism, hypertension. PHYSICAL EXAMINATION: T-max 101-103.5, heart rate 87-90, respiratory 16 to 18. Cardiovascular S1-S2. Lungs: Rales at the bases. ENT: External ear canals within normal limits. EXTREMITIES: No cyanosis, clubbing, edema. Back: , Lower lumbar tenderness. NEUROLOGIC: Cranial nerves are intact. PSYCH: Fair mood and affect. SKIN: Warm, dry. ASSESSMENT: 1. Fever of unclear etiology. 2. Covid negative. 3. Worsening renal failure and anemia. 4. Severe anemia. Get GI consult. Get Infectious Disease consult for fever. Dialysis with renal consult. Accu-Chek protocol. Broad-spectrum antibiotics. MMODL / IJN: [id number] /
[2020-03-18 11:28] LABS: Glucose,Whole Blood 140 mg/dL (75-99)
--- NOTE | 2020-03-18 15:46 | CONS ---
CONSULTATION REASON FOR CONSULT: End-stage renal disease. HISTORY OF PRESENT ILLNESS: Patient is a 54-year-old female with end-stage renal disease on hemodialysis on a Thursday, , Thursday schedule. She was admitted to the hospital with complaints of fever. The patient stated that she had her regular treatment on Thursday with no changes in blood pressure or fever. She was recently discharged from the hospital about four weeks ago with antibiotics for treatment of infective endocarditis. The patient was noted to have vegetation on the mitral valve leaflet. She did finish her course of antibiotics as outpatient. Patient also states that she had a PermCath placed about a week ago as her AV fistula was clotted. She has not had any drainage from the catheter. No complaints of cough, nausea, vomiting, abdominal pain or diarrhea. 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 PAST SURGICAL HISTORY: Liver biopsy, colonoscopy, polypectomy, AV fistula, bone marrow biopsies, multiple accesses previously for dialysis, recent PermCath placement. SOCIAL HISTORY: Negative for smoking, drug abuse, alcohol abuse. MEDICATIONS: Medications prior to admission multiple, please see list. ALLERGIES: CIPRO and IV DYE. REVIEW OF SYSTEMS: As per HPI. Other systems negative. EXAMINATION: Patient is comfortable, awake, not in any acute distress. Alert, oriented x3. Blood pressure is 134/60, heart rate 76 per minute, she is afebrile. Examination of the heart S1, S2. Examination of the lungs, bilateral breath sounds are heard. Abdomen is soft, distended with ascites. Exam of lower extremities shows no significant edema. [employer] exam grossly intact. LABS: Hemoglobin 6.6, sodium 133, potassium 5.0, creatinine 4.6. ASSESSMENT: 1. End-stage renal disease on hemodialysis on a Thursday, , Thursday schedule. I will arrange for a short treatment of dialysis tomorrow mostly for volume overload and ultrafiltration. 2. Fever, rule out underlying infection related to the PermCath. The patient also had mitral valve endocarditis and was discharged on antibiotics on 02/19/2020. She will need a repeat echocardiogram and blood cultures done. 3. Severe anemia with hemoglobin 6.6 at the time of admission, status post packed RBCs transfusion. 4. History of chronic liver disease, status post liver biopsy at [facility], details not available. 5. Chronic kidney disease mineral bone disorder. 6. Volume overload, plan for UF tomorrow. PLAN: Hemodialysis in a.m. mostly for volume overload, check blood cultures, empiric antibiotics. We will draw blood cultures during dialysis as well. Previous blood cultures had grown MRSA on 01/31 and 01/30/2020. Thank you for this consultation. We will continue to follow the patient with you during her hospitalization. MMODL / IJN: [id number] /
[2020-03-18 16:19] LABS: Glucose,Whole Blood 76 mg/dL (75-99)
[2020-03-18] MEDS: ALBUTEROL HFA INHALER INHALATION PRN ×2 (16:20→21:08)
--- NOTE | 2020-03-18 17:50 | P.CONS ---
History of Present Illness - Reason for Consult Consult date: 03/18/20 Anemia Requesting physician: Sedrick Mendoza - Chief Complaint Symptomatic Anemia - History of Present Illness Ms Desouza is a pleasant WF, with multiple medical problems, who was seen by Dr De in 2009-, for low blood counts. Per the pt , this related to her WBC. She had a bone marrow done, and states that she was told she had " less than 5% risk of cancer". She did not f/u with Hem-Onc since, till 07/23. She was admitted to [facility] with sepsis due to toe infection. She developed pancytopenia, which was felt to be due to sepsis, with counts showing some improvement as she recovered. She has a h/o severe pancreatitis resulting in renal failure in 2009, requ iring HD for a few mths. She developed AUDREY in 07/23 again, but recovered. She was placed back on HD in 11/23. She was again work-up for anemia by Dr. Garay in when she presented with a Hgb of 6.9 on 01/10/2016 and received PRBC transfusion. Hgb fell to 6.2 again on 03/12/16 requiring repeat transfusion. She denied obvious bleeding. She was thus referred here for further evaluation and recommendations. Records and labs from 07/23 and other admissions to [facility] since were reviewed. Her bone marrow from 2010 had shown dyspoeitic changes. Additional labs were ordered which were negative other than a mild kappa elevation vs lambda with a ratio of 2.49 She is being evaluated for a renal transplant at [facility]. Thus a repeat bone marrow was done on 05/19/16, again showing mild dyspoeitic changes, with no evidence of progression. She now re-presents to hospital with hemoglobin 6.8. Dr. Garay has been consulted again regarding her anemia, Bicytopenia. She was recently at [facility] where they placed a new dialysis port, patient states that she had an "allergic reaction" during intervention requiring admission to ICU. 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 hemodialysis for acute kidney injury 2 months in 2009 after pancreatic OR, 11/2015 diagnosed w/ chronic kidney disease-hemodialysis /-last hemodialysis 06/02/19, IDDM type II, past DKA, UTI, chronic anemia, frequent body cramping, occasional low back pain, carter's palsy x2, past L leg fx, possible liver disease-recent liver bx-results unknown per pt. History of Any Multi-Drug Resistant Organisms: MRSA Year Discovered:: 02/01/20 MDRO Source:: Blood Past Surgical History: Orthopedic Surgery, Uterine Ablation Additional Past Surgical History / Comment(s): Recent liver biopsy done at [facility] but pt states they have never contacted her with the results, 08/26/17 colonoscopy with polypectomy/bx, pancreatic resection at [facility] 2009, bone marrow biopsies X2-last one 05/19/16,. dialysis chest port x 2 with removals, Left arm shunt placement for dialysis - December 2015 and a revision done with shunt. Left forearm Vein Revision - October 2019 Past Anesthesia/Blood Transfusion Reactions: No Reported Reaction Additional Past Anesthesia/Blood Transfusion Reaction / Comm: Pt has received blood transfusions without reaction. Past Psychological History: No Psychological Hx Reported Additional Psychological History / Comment(s): Pt resides at her mother in laws home at this time with spouse. They are her mother in laws caretakers. She is independent. She uses no assistive device. She drives. Smoking Status: Never smoker Past Alcohol Use History: None Reported Additional Past Alcohol Use History / Comment(s): Patient is a lifelong nonsmoker. Past Drug Use History: None Reported - Past Family History Brother(s) Family Medical History: No Reported History Mother Family Medical History: Cancer Additional Family Medical History / Comment(s): . Father Family Medical History: Hypertension Additional Family Medical History / Comment(s): alcoholism Medications and Allergies Home Medications Medication Instructions Recorded Confirmed Type Cyclobenzaprine [Flexeril] 5 mg PO HS 09/14/15 03/17/20 History cloNIDine HCL 0.3 mg PO TID 12/16/16 03/17/20 History Sevelamer [Renvela] 800 mg PO DAILY PRN 08/21/17 03/17/20 History Furosemide [Lasix] 120 mg PO DAILY 10/22/17 03/17/20 History Prochlorperazine [Compazine] 5 mg PO BID PRN 10/26/17 03/17/20 History Sevelamer [Renvela] 3,200 mg PO AC-TID 03/13/18 03/17/20 History Gabapentin [Neurontin] 100 mg PO TID 05/17/18 03/17/20 History INSULIN LISPRO (humaLOG) [humaLOG] 18 unit SQ ACHS 07/12/18 03/17/20 History Omeprazole 20 mg PO BID 11/01/18 03/17/20 History Lidocaine-Prilocaine Cream [Emla 1 applic TOPICAL DAILY PRN 11/21/18 03/17/20 History Cream 2.5%/2.5%] hydrALAZINE HCL [Apresoline] 100 mg PO TID 12/14/18 03/17/20 History Aspirin EC [Ecotrin Low Dose] 81 mg PO DAILY #30 tablet. 12/17/18 03/17/20 Rx Labetalol [Trandate] 400 mg PO BID #120 tab 12/17/18 03/17/20 Rx Ascorbic Acid [Vitamin C] 500 mg PO DAILY 11/08/19 03/17/20 History Atorvastatin [Lipitor] 40 mg PO HS 11/08/19 03/17/20 History HYDROcodone/APAP 7.5-325MG [[place] 1 tab PO TID PRN 11/08/19 03/17/20 History 7.5-325] Montelukast [Singulair] 10 mg PO HS 11/08/19 03/17/20 History Olopatadine HCl [Pataday] 1 drops BOTH EYES BID 11/08/19 03/17/20 History Insulin Glargine,Hum.rec.anlog 80 unit SQ HS 12/02/19 03/17/20 History [Basaglar Kwikpen U-100] Albuterol Sulfate [Proair Hfa] 2 puff INHALATION RT-Q6H PRN 01/28/20 03/17/20 History Docusate [Colace] 100 mg PO DAILY 01/28/20 03/17/20 History Furosemide [Lasix] 80 mg PO HS 01/28/20 03/17/20 History Sodium Polystyrene Sulfonate 30 gm PO SUMOWEFR 01/28/20 03/17/20 History [Kayexalate] diazePAM [Valium] 5 mg PO DAILY PRN 01/28/20 03/17/20 History rOPINIRole HCL [Requip] 1 mg PO TID 01/28/20 03/17/20 History Tiotropium 18 Mcg/Puff [Spiriva] 1 cap INHALATION RT-DAILY PRN 02/01/20 03/17/20 History INSULIN LISPRO (HumaLOG) [humaLOG] See Protocol SQ ACHS 03/17/20 03/17/20 History Promethazine 6.25MG/5Ml [Phenergan 12.5 mg PO Q6HR PRN 03/17/20 03/17/20 History Syrup] Allergies Allergy/AdvReac Type Severity Reaction Status Date / Time ciprofloxacin [From Cipro] AdvReac AFFECTED Verified 03/17/20 17:50 EYESIGHT ciprofloxacin HCl AdvReac AFFECTED Verified 03/17/20 17:50 [From Cipro] EYESIGHT Iodinated Contrast Media AdvReac RENAL Verified 03/17/20 17:50 FAILURE Physical Exam Vitals: Vital Signs Temp Pulse Pulse Resp BP BP Pulse Ox 03/18/20 07:00 99.2 F 76 16 134/60 100 03/18/20 03:50 98.1 F 88 18 146/66 97 03/18/20 02:17 98.9 F 102 H 18 152/68 94 L 03/18/20 00:45 101 F H 110 H 18 181/67 03/18/20 00:15 99.3 F 44 L 18 163/57 91 L 03/18/20 00:05 99.1 F 102 H 109/61 97 03/18/20 00:00 76 18 03/17/20 21:43 98.6 F 76 16 144/67 99 03/17/20 21:34 18 03/17/20 20:46 98.7 F 78 19 132/59 98 03/17/20 20:15 80 19 127/55 98 03/17/20 19:15 84 18 141/58 100 03/17/20 18:00 87 18 129/90 100 03/17/20 17:24 101.4 F H 90 18 148/59 100 03/17/20 16:21 103.5 F H 99 18 163/64 92 L Intake and Output 03/17/20 03/18/20 03/18/20 22:59 06:59 14:59 Intake Total 300 1050 Balance 300 1050 Intake: Intake, IV Titration 130 Amount Sodium Chloride 0.9% 1, 80 000 ml @ 20 mls/hr IV . Q24H ONE Rx#:[id number] cefTRIAXone 1 gm In 50 Sodium Chloride 0.9% 50 ml @ 100 mls/hr IVPB Q12HR ANNI Rx#:[id number] Oral 300 300 Blood Product 620 Rc Irr As3 Unit 310 [id number] Other: Voiding Method Toilet Toilet Toilet # Voids 3 Weight 77.111 kg Telemedicine Visit: VOice muffled ALert and oriented x3 She states tongue swollwn and legs baseline Results CBC & Chem 7: 03/18/20 06:02 03/18/20 06:02 Labs: Abnormal Lab Results - Last 24 Hours (Table) 03/17/20 03/17/20 03/17/20 Range/Units 17:07 17:07 17:07 RBC 2.17 L (3.80-5.40) m/uL Hgb 6.9 L* (11.4-16.0) gm/dL Hct 20.8 L (34.0-46.0) % RDW 17.5 H (11.5-15.5) % Plt Count 100 L (150-450) k/uL Lymphocytes # 0.1 L (1.0-4.8) k/uL D-Dimer 8.25 H (<0.60) mg/L FEU Sodium 131 L (137-145) mmol/L Chloride 89 L (98-107) mmol/L Carbon Dioxide 34 H (22-30) mmol/L BUN 27 H (7-17) mg/dL Creatinine 3.37 H (0.52-1.04) mg/dL Est GFR (CKD-EPI)AfAm (60.0-200.0) Est GFR (CKD-EPI)NonAf (60.0-200.0) BUN/Creatinine Ratio (12.00-20.00) Ratio Glucose 207 H (74-99) mg/dL POC Glucose (mg/dL) (75-99) mg/dL Magnesium 1.3 L (1.6-2.3) mg/dL Ferritin 2818.8 H (10.0-291.0) ng/mL C-Reactive Protein 56.2 H (<10.0) mg/L Total Protein 5.9 L (6.3-8.2) g/dL Albumin (3.80-4.90) g/dL Crossmatch 03/17/20 03/17/20 03/18/20 Range/Units 20:17 21:43 06:02 RBC 2.08 L (3.80-5.40) m/uL Hgb 6.6 L* (11.4-16.0) gm/dL Hct 20.2 L (34.0-46.0) % RDW 18.0 H (11.5-15.5) % Plt Count 81 L (150-450) k/uL Lymphocytes # 0.2 L (1.0-4.8) k/uL D-Dimer (<0.60) mg/L FEU Sodium (137-145) mmol/L Chloride (98-107) mmol/L Carbon Dioxide (22-30) mmol/L BUN (7-17) mg/dL Creatinine (0.52-1.04) mg/dL Est GFR (CKD-EPI)AfAm (60.0-200.0) Est GFR (CKD-EPI)NonAf (60.0-200.0) BUN/Creatinine Ratio (12.00-20.00) Ratio Glucose (74-99) mg/dL POC Glucose (mg/dL) 361 H (75-99) mg/dL Magnesium (1.6-2.3) mg/dL Ferritin (10.0-291.0) ng/mL C-Reactive Protein (<10.0) mg/L Total Protein (6.3-8.2) g/dL Albumin (3.80-4.90) g/dL Crossmatch See Detail 03/18/20 03/18/20 Range/Units 06:02 07:05 RBC (3.80-5.40) m/uL Hgb (11.4-16.0) gm/dL Hct (34.0-46.0) % RDW (11.5-15.5) % Plt Count (150-450) k/uL Lymphocytes # (1.0-4.8) k/uL D-Dimer (<0.60) mg/L FEU Sodium 133 L (137-145) mmol/L Chloride 90 L (98-107) mmol/L Carbon Dioxide 32.9 H (22-30) mmol/L BUN 37.0 H (7-17) mg/dL Creatinine 4.6 H (0.52-1.04) mg/dL Est GFR (CKD-EPI)AfAm 11.9 L (60.0-200.0) Est GFR (CKD-EPI)NonAf 10.2 L (60.0-200.0) BUN/Creatinine Ratio 8.04 L (12.00-20.00) Ratio Glucose 234 H (74-99) mg/dL POC Glucose (mg/dL) 249 H (75-99) mg/dL Magnesium (1.6-2.3) mg/dL Ferritin (10.0-291.0) ng/mL C-Reactive Protein (<10.0) mg/L Total Protein 5.3 L (6.3-8.2) g/dL Albumin 3.60 L (3.80-4.90) g/dL Crossmatch CT scan - abdomen: report reviewed CT scan - pelvis: report reviewed Assessment and Plan (1) Normocytic anemia Current Visit: Yes Status: Acute Code(s): D64.9 - ANEMIA, UNSPECIFIED SNOMED Code(s): 892050130 (2) Thrombocytopenia Current Visit: Yes Status: Acute Code(s): D69.6 - THROMBOCYTOPENIA, UNSPECIFIED SNOMED Code(s): 633953606 (3) Chronic renal failure Current Visit: No Status: Acute Code(s): N18.9 - CHRONIC KIDNEY DISEASE, UNSPECIFIED SNOMED Code(s): 00231928 (4) Congestive heart failure Current Visit: No Status: Acute Code(s): I50.9 - HEART FAILURE, UNSPECIFIED SNOMED Code(s): 75388000 (5) Diabetes Current Visit: No Status: Acute Code(s): E11.9 - TYPE 2 DIABETES MELLITUS WITHOUT COMPLICATIONS SNOMED Code(s): 10301086 (6) ESRD (end stage renal disease) on dialysis Current Visit: No Status: Acute Code(s): N18.6 - END STAGE RENAL DISEASE; Z99.2 - DEPENDENCE ON RENAL DIALYSIS SNOMED Code(s): 484912112 Plan: Transfusion support less than 7 Recheck Iron studies and defer Epogen to Nephrology. Macrocytic Anemia: This is a chronic issue, with history as described in the HPI. Most likely this is due to underlying dyspoeitic disorder. However at baseline, her counts are consistently in a safe range, and stable. Typically, she does have drop in counts in the setting of superimposed acute illnesses, with return to baseline on resolution of the same. - This is thought to be the picture given her presentation this admission as well, likely UTI. She does have admission in November of this year with the pt has MRSA bacteremia. - ID is following - Fevers improving Pancytopenia w/u has been negative in the past, as noted in the HPI, including in 12/27 ( other than non specific k/l ratio increase) - During this admission, Thus the drop in counts is felt to be due to additional acute marrow suppression from the same. - Iron studies show no deficiency. Other cytopenia w/u will be repeated - Monitor counts and supplement with transfusion to keep Hgb > 7, and plt > 10 ( unless there is active bleeding). Growth factors will be used if ANC falls to < 1000 Counts are expected to recover once infection resolves. Transfusion today for hemoglobin 6.8 - Case d/w RN, It was recommended that only irradiated blood products be used for transfusion support Thrombocytopenia: - 81K today - Coags Stable Lymphopenia: - Likely secondary to infectious process Recommendatiions: - Obtain Records from [place] - Blood cultrue from new port with recent placement and history of MRSA - Patuent stated abscess was also recently found in abdomen, drained and treated for infection Tele - medicine visit today secondary to increased COVID Cases and risks. Patient agrees to televist appointment today. Greater than 22 minutes spent reviewing patients chart, discussion with patient, and RN.
[2020-03-18 20:57] LABS: Glucose,Whole Blood 113 mg/dL (75-99)
[2020-03-18] MEDS: INSULIN DETEMIR (LEVEMIR) 100 UNIT/ML SYR SQ SCH (21:02)
[2020-03-18] MEDS: ATORVASTATIN 40 MG TAB PO SCH (21:23)
[2020-03-18] MEDS: MONTELUKAST 10 MG TAB PO SCH (21:24)
[2020-03-18] MEDS: CYCLOBENZAPRINE 5 MG TAB PO SCH (21:24)
--- NOTE | 2020-03-18 22:10 | P.CONS ---
History of Present Illness - Reason for Consult Consult date: 03/18/20 Fever and bacteremia Requesting physician: David Bragg - Chief Complaint Fever 1 day - History of Present Illness Patient is a 54 year female who was recently admitted at this facility patient did have evidence of MRSA bacteremia further workup which was evidence of mitral wall endocarditis the patient was discharged home on 02/09/2020 with a plan for 6-8 weeks of IV vancomycin through the dialysis with the patient mentioned she has completed however she is hardly 4 weeks post discharge from her previous admission patient also have clotting of her left arm AV fistula in 2 weeks ago the patient did have right subclavian PermCath placed at [facility] patient is now brought back to [facility] ER or see me for evaluation of an episode of fever, which apparently started the day of presentation to the hospital patient did have associated rigors and chills denies any headache or URI symptoms no chest pain shortness of breath or cough no nausea no vomiting no abdominal pain no diarrhea patient on arrival to the ER did have a fever of 103F she was tachycardic white count was normal did have evidence of lymphopenia, liver enzymes are normal, mata PCR negative chest x- ray did not show any acute infiltrate, patient did have a CT of the chest and abdominal with evidence of moderate pericardial effusionpatient pulmonary mass, patient has been admitted to the hospital with the patient has been started on Rocephin and the patient did have blood culture drawn which came back positive with gram-positive cocci infectious disease was consulted for further management of antibiotic therapy Review of Systems Positive point has been mentioned in the HPI rest of the systems are negative Past Medical History Past Medical History: Blood Disorder, Heart Failure, Diabetes Mellitus, Dialysis, Hyperlipidemia, Hypertension, Liver Disease, Pneumonia, Renal Disease Additional Past Medical History / Comment(s): Bilateral cataracts, recently d iagnosed with bilateral retinal hemorrhages, hypertriglyceridemia-induced acute pancreatitis, THEN necrotizing pancreatitis. hemodialysis for acute kidney injury 2 months in 2009 after pancreatic OR, 11/2015 diagnosed w/ chronic kidney disease-hemodialysis //-last hemodialysis 06/02/19, IDDM type II, past DKA, UTI, chronic anemia, frequent body cramping, occasional low back pain, carter's palsy x2, past L leg fx, possible liver disease-recent liver bx-results unknown per pt. History of Any Multi-Drug Resistant Organisms: MRSA Year Discovered:: 02/01/20 MDRO Source:: Blood Past Surgical History: Orthopedic Surgery, Uterine Ablation Additional Past Surgical History / Comment(s): Recent liver biopsy done at [place] but pt states they have never contacted her with the results, 08/26/17 colonoscopy with polypectomy/bx, pancreatic resection at [facility] 2009, bone marrow biopsies X2-last one 05/19/16,. dialysis chest port x 2 with removals, Left arm shunt placement for dialysis - December 2015 and a revision done with shunt. Left forearm Vein Revision - October 2019 Past Anesthesia/Blood Transfusion Reactions: No Reported Reaction Additional Past Anesthesia/Blood Transfusion Reaction / Comm: Pt has received blood transfusions without reaction. Past Psychological History: No Psychological Hx Reported Additional Psychological History / Comment(s): Pt resides at her mother in laws home at this time with spouse. They are her mother in laws caretakers. She is independent. She uses no assistive device. She drives. Smoking Status: Never smoker Past Alcohol Use History: None Reported Additional Past Alcohol Use History / Comment(s): Patient is a lifelong nonsmoker. Past Drug Use History: None Reported - Past Family History Brother(s) Family Medical History: No Reported History Mother Family Medical History: Cancer Additional Family Medical History / Comment(s): . Father Family Medical History: Hypertension Additional Family Medical History / Comment(s): alcoholism Medications and Allergies Home Medications Medication Instructions Recorded Confirmed Type Cyclobenzaprine [Flexeril] 5 mg PO HS 09/14/15 03/17/20 History cloNIDine HCL 0.3 mg PO TID 12/16/16 03/17/20 History Sevelamer [Renvela] 800 mg PO DAILY PRN 08/21/17 03/17/20 History Furosemide [Lasix] 120 mg PO DAILY 10/22/17 03/17/20 History Prochlorperazine [Compazine] 5 mg PO BID PRN 10/26/17 03/17/20 History Sevelamer [Renvela] 3,200 mg PO AC-TID 03/13/18 03/17/20 History Gabapentin [Neurontin] 100 mg PO TID 05/17/18 03/17/20 History INSULIN LISPRO (humaLOG) [humaLOG] 18 unit SQ ACHS 07/12/18 03/17/20 History Omeprazole 20 mg PO BID 11/01/18 03/17/20 History Lidocaine-Prilocaine Cream [Emla 1 applic TOPICAL DAILY PRN 11/21/18 03/17/20 History Cream 2.5%/2.5%] hydrALAZINE HCL [Apresoline] 100 mg PO TID 12/14/18 03/17/20 History Aspirin EC [Ecotrin Low Dose] 81 mg PO DAILY #30 tablet.dr 12/17/18 03/17/20 Rx Labetalol [Trandate] 400 mg PO BID #120 tab 12/17/18 03/17/20 Rx Ascorbic Acid [Vitamin C] 500 mg PO DAILY 11/08/19 03/17/20 History Atorvastatin [Lipitor] 40 mg PO HS 11/08/19 03/17/20 History HYDROcodone/APAP 7.5-325MG [[place] 1 tab PO TID PRN 11/08/19 03/17/20 History 7.5-325] Montelukast [Singulair] 10 mg PO HS 11/08/19 03/17/20 History Olopatadine HCl [Pataday] 1 drops BOTH EYES BID 11/08/19 03/17/20 History Insulin Glargine,Hum.rec.anlog 80 unit SQ HS 12/02/19 03/17/20 History [Basaglar Kwikpen U-100] Albuterol Sulfate [Proair Hfa] 2 puff INHALATION RT-Q6H PRN 01/28/20 03/17/20 History Docusate [Colace] 100 mg PO DAILY 01/28/20 03/17/20 History Furosemide [Lasix] 80 mg PO HS 01/28/20 03/17/20 History Sodium Polystyrene Sulfonate 30 gm PO SUMOWEFR 01/28/20 03/17/20 History [Kayexalate] diazePAM [Valium] 5 mg PO DAILY PRN 01/28/20 03/17/20 History rOPINIRole HCL [Requip] 1 mg PO TID 01/28/20 03/17/20 History Tiotropium 18 Mcg/Puff [Spiriva] 1 cap INHALATION RT-DAILY PRN 02/01/20 03/17/20 History INSULIN LISPRO (HumaLOG) [humaLOG] See Protocol SQ [facility] 03/17/20 03/17/20 History Promethazine 6.25MG/5Ml [Phenergan 12.5 mg PO Q6HR PRN 03/17/20 03/17/20 History Syrup] Allergies Allergy/AdvReac Type Severity Reaction Status Date / Time ciprofloxacin [From Cipro] AdvReac AFFECTED Verified 03/17/20 17:50 EYESIGHT ciprofloxacin HCl AdvReac AFFECTED Verified 03/17/20 17:50 [From Cipro] EYESIGHT Iodinated Contrast Media AdvReac RENAL Verified 03/17/20 17:50 FAILURE Physical Exam Vitals: Vital Signs Temp Pulse Pulse Resp BP BP Pulse Ox 03/18/20 19:42 76 16 03/18/20 16:05 98.8 F 69 16 157/72 100 03/18/20 12:55 98.9 F 67 16 140/66 99 03/18/20 12:25 99.5 F 68 16 144/66 03/18/20 12:15 98.8 F 67 16 142/67 99 03/18/20 07:00 99.2 F 76 16 134/60 100 03/18/20 03:50 98.1 F 88 18 146/66 97 03/18/20 02:17 98.9 F 102 H 18 152/68 94 L 03/18/20 00:45 101 F H 110 H 18 181/67 03/18/20 00:15 99.3 F 44 L 18 163/57 91 L 03/18/20 00:05 99.1 F 102 H 109/61 97 03/18/20 00:00 76 18 Intake and Output 03/18/20 03/18/20 03/18/20 06:59 14:59 22:59 Intake Total 1050 0 310 Output Total 4 Balance 1050 -4 310 Intake: Intake, IV Titration 130 Amount Sodium Chloride 0.9% 1, 80 000 ml @ 20 mls/hr IV . Q24H ONE Rx#:[id number] cefTRIAXone 1 gm In 50 Sodium Chloride 0.9% 50 ml @ 100 mls/hr IVPB Q12HR ANNI Rx#:[id number] Oral 300 Blood Product 620 0 310 Rc Irr As1 Unit 0 310 [id number] Rc Irr As3 Unit 310 [id number] Output: Urine 4 Other: Voiding Method Toilet Toilet Toilet # Voids 3 1 GENERAL DESCRIPTION: Middle-aged female lying in bed, no distress. No tachypnea or accessory muscle of respiration use. HEENT: Shows Pallor , no scleral icterus. Oral mucous membrane is dry. No pharyngeal erythema or thrush NECK: Trachea central, no thyromegaly. LUNGS: Unlabored breathing. Clear to auscultation anteriorly. No wheeze or crackle. HEART: S1, S2, regular rate and rhythm. Systolic murmur ABDOMEN: Soft, no tenderness , guarding or rigidity, no organomegaly EXTREMITIES: No edema of feet. SKIN: No rash, no masses palpable. NEUROLOGICAL: The patient is awake, alert, oriented x3, mood and affect normal. Results CBC & Chem 7: 03/18/20 06:02 03/18/20 06:02 Labs: Abnormal Lab Results - Last 24 Hours (Table) 03/17/20 03/17/20 03/17/20 Range/Units 17:07 17:07 20:17 RBC (3.80-5.40) m/uL Hgb (11.4-16.0) gm/dL Hct (34.0-46.0) % RDW (11.5-15.5) % Plt Count (150-450) k/uL Lymphocytes # (1.0-4.8) k/uL Sodium (135-145) mmol/L Chloride (96-109) mmol/L Carbon Dioxide (21.6-31.8) mmol/L BUN (9.0-27.0) mg/dL Creatinine (0.6-1.5) mg/dL Est GFR (CKD-EPI)AfAm (60.0-200.0) Est GFR (CKD-EPI)NonAf (60.0-200.0) BUN/Creatinine Ratio (12.00-20.00) Ratio Glucose (70-110) mg/dL POC Glucose (mg/dL) (75-99) mg/dL Ferritin 2818.8 H (10.0-291.0) ng/mL Total Protein (6.2-8.2) g/dL Albumin (3.80-4.90) g/dL Procalcitonin 9.82 H (0.02-0.09) ng/mL Crossmatch See Detail 1103/18/20 03/18/20 Range/Units 06:02 06:02 07:05 RBC 2.08 L (3.80-5.40) m/uL Hgb 6.6 L* (11.4-16.0) gm/dL Hct 20.2 L (34.0-46.0) % RDW 18.0 H (11.5-15.5) % Plt Count 81 L (150-450) k/uL Lymphocytes # 0.2 L (1.0-4.8) k/uL Sodium 133 L (135-145) mmol/L Chloride 90 L (96-109) mmol/L Carbon Dioxide 32.9 H (21.6-31.8) mmol/L BUN 37.0 H (9.0-27.0) mg/dL Creatinine 4.6 H (0.6-1.5) mg/dL Est GFR (CKD-EPI)AfAm 11.9 L (60.0-200.0) Est GFR (CKD-EPI)NonAf 10.2 L (60.0-200.0) BUN/Creatinine Ratio 8.04 L (12.00-20.00) Ratio Glucose 234 H (70-110) mg/dL POC Glucose (mg/dL) 249 H (75-99) mg/dL Ferritin (10.0-291.0) ng/mL Total Protein 5.3 L (6.2-8.2) g/dL Albumin 3.60 L (3.80-4.90) g/dL Procalcitonin (0.02-0.09) ng/mL Crossmatch 03/18/20 03/18/20 Range/Units 11:26 20:53 RBC (3.80-5.40) m/uL Hgb (11.4-16.0) gm/dL Hct (34.0-46.0) % RDW (11.5-15.5) % Plt Count (150-450) k/uL Lymphocytes # (1.0-4.8) k/uL Sodium (135-145) mmol/L Chloride (96-109) mmol/L Carbon Dioxide (21.6-31.8) mmol/L BUN (9.0-27.0) mg/dL Creatinine (0.6-1.5) mg/dL Est GFR (CKD-EPI)AfAm (60.0-200.0) Est GFR (CKD-EPI)NonAf (60.0-200.0) BUN/Creatinine Ratio (12.00-20.00) Ratio Glucose (70-110) mg/dL POC Glucose (mg/dL) 140 H 113 H (75-99) mg/dL Ferritin (10.0-291.0) ng/mL Total Protein (6.2-8.2) g/dL Albumin (3.80-4.90) g/dL Procalcitonin (0.02-0.09) ng/mL Crossmatch Microbiology - Last 24 Hours (Table) 03/17/20 17:07 Blood Culture Gram Stain - Preliminary Blood 03/17/20 17:07 Blood Culture - Final Blood Assessment and Plan Assessment: 1- patient presented to the hospital with sepsis in this patient who did have a fever tachycardia now with evidence of gram-positive bacteremia in this patient with a recent diagnosis of MRSA mitral wall endocarditis for the patient has not completed her antibiotic as advised neither the patient follow-up in the office as advised and now with a new permacath replacement 2 weeks ago, patient now with evidence of gram-positive bacteremia source possible endocarditis versus related to her permacatheter (1) Sepsis Current Visit: Yes Status: Acute Code(s): A41.9 - SEPSIS, UNSPECIFIED ORGANISM SNOMED Code(s): 03823750 (2) Bacteremia Current Visit: Yes Status: Acute Code(s): R78.81 - BACTEREMIA SNOMED Code(s): 3750788 Plan: 1- blood cultures will be repeated peripherally as well as from permacatheter 2-Vancomycin pharmacy to dose target trough of 15 while watching kidney function and Vanco trough closely 3-will need repeat TK We will follow on clinical condition and cultures to further adjust medication if needed Thank you for this consultation will follow this patient with you Time with Patient: Greater than 30
[2020-03-18] MEDS ORDERED: VANCOMYCIN IV PER PHARMACY 1 EACH MISC MISCELLANE PRN (22:11)
[2020-03-18] MEDS ORDERED: VANCOMYCIN 1,500 MG in SODIUM CHLORIDE 0.9% 250 ML IVPB ONE (22:15)
[2020-03-19] MEDS: HYDROcodone/APAP 7.5-325MG 1 EACH TAB PO PRN ×3 (03:57→22:06)
[2020-03-19 06:25] LABS: Reticulocyte % 2.7 % (0.5-2.0)
[2020-03-19 06:55] LABS: Glucose,Whole Blood 94 mg/dL (75-99)
[2020-03-19] MEDS: INSULIN ASPART (NovoLOG) 100 UNIT/ML VIAL SQ SCH ×4 (07:03→21:20)
[2020-03-19] MEDS: GABAPENTIN 100 MG CAP PO SCH ×3 (07:09→21:34)
[2020-03-19] MEDS: LABETALOL 200 MG TAB PO SCH ×2 (07:09→22:07)
[2020-03-19] MEDS: cloNIDine HCL 0.1 MG TAB PO SCH ×3 (07:09→21:34)
[2020-03-19] MEDS: ASPIRIN 81 MG PO SCH (07:09)
[2020-03-19] MEDS: hydrALAZINE HCL 50 MG TAB PO SCH ×3 (07:09→21:34)
[2020-03-19] MEDS: ASCORBIC ACID 500 MG TAB PO SCH (07:10)
[2020-03-19] MEDS: PANTOPRAZOLE 40 MG TABLET PO SCH ×2 (07:10→21:34)
[2020-03-19] MEDS: DOCUSATE 100 MG CAP PO SCH (07:10)
[2020-03-19] MEDS: FUROSEMIDE 80 MG TAB PO SCH ×2 (07:10→22:07)
[2020-03-19] MEDS: SEVELAMER 800 MG TAB PO SCH ×3 (07:10→17:03)
[2020-03-19] MEDS: ALBUTEROL HFA INHALER INHALATION PRN ×3 (07:51→19:55)
[2020-03-19] MEDS: TIOTROPIUM 18 MCG/PUFF INHALER INHALATION PRN (07:51)
[2020-03-19 09:50] LABS: Protein, Total 4.9 g/dL (6.2-8.2)
[2020-03-19] MEDS: KETOTIFEN 0.025% OPHTH DROPS 5 ML BTL BOTH EYES SCH ×2 (10:17→21:35)
[2020-03-19 10:25] LABS: Anisocytosis Slight; Basophils % (A) 0 %; Eosinophils # (A) 0.1 k/uL (0-0.7); Eosinophils % (A) 2 %; HCT 21.9 % (34.0-46.0); HGB 7.2 gm/dL (11.4-16.0); Lymphocytes # (A) 0.2 k/uL (1.0-4.8); Lymphocytes % (A) 5 %; Mean Platelet Volume 7.6; Monocytes # (A) 0.2 k/uL (0-1.0); Monocytes % (A) 5 %; Neutrophils # (A) 3.5 k/uL (1.3-7.7); Neutrophils % (A) 87 %; Poikilocytosis Slight; RBC 2.33 m/uL (3.80-5.40); RDW 17.6 % (11.5-15.5); WBC 4.1 k/uL (3.8-10.6)
[2020-03-19 10:26] LABS: Platelet Count 85 k/uL (150-450)
--- NOTE | 2020-03-19 10:51 | P.CRDCN ---
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 She follows in the office with Dr. Tesfaye. We have been asked to see in consultation for pericardial effusion. She was diagnosed with mitral valve vegetation/endoca rditis in early February and sent home on IV vanco for 6-8 weeks. According to the patient she completed the course of antibiotics, however she is only 4 weeks out from that discharge. On admission and throughout this hospitalization she has been febrile, T-max 103.5F. Blood cultures positive with gram-positive presumptive MRSA, infectious disease is following and they're requesting a repeat TK. She is seen and examined sitting up in bed undergoing hemodialysis. She denies chest pain, shortness of breath, dizziness or palpitations. She is tearful and just wants to go home. DIAGNOSTICS EKG reveals sinus mechanism with incomplete right bundle branch block and nonspecific ST abnormalities mostly artifactual. Chest xray increased pulmonary vascularity with no definite heart failure. CT of the chest and abdomen reveals a moderate pericardial effusion, clearing of abdominal ascites, groundglass pulmonary interstitial infiltrates unchanged from previous study and no suspicious pulmonary mass. Laboratory reviewed, WBC 4.1, hemoglobin 7.2, platelets 85, sodium 133, potassium 5.0, creatinine 4.6, d-dimer on admission 8.25, magnesium 1.3, procalcitonin 9.8 and COVID negative. Current cardiac medications include aspirin 81 mg daily, atorvastatin 40 mg at bedtime, clonidine 0.3 mg 3 times a day, Lasix 120 mg in the morning and 80 mg at bedtime, hydralazine 100 mg 3 times a day, labetalol 400 mg twice a day. REVIEW OF SYSTEMS At the time of my exam: CONSTITUTIONAL: Denies fever or chills. CARDIOVASCULAR: Denies chest pain, shortness of breath, orthopnea, PND or palpitations. RESPIRATORY: Denies cough. GASTROINTESTINAL: Denies abdominal pain, diarrhea, constipation, nausea or vom iting. MUSCULOSKELETAL: Denies myalgias. NEUROLOGIC: Denies numbness, tingling or weakness. ENDOCRINE: Denies fatigue, weight change, polydipsia or polyurina. GENITOURINARY: Denies burning, hematuria or urgency with micturation. HEMATOLOGIC: Denies history of anemia or bleeding. PHYSICAL EXAMINATION Blood pressure 153/72 heart rate 64 afebrile and maintaining oxygen saturation on room air. CONSTITUTIONAL: No apparent distress. HEENT: Head is normocephalic. Pupils are equal, round. Sclerae anicteric. Mucous membranes of the mouth are moist. No JVD. No carotid bruit. CHEST EXAMINATION: Lungs are clear to auscultation. No chest wall tenderness is noted on palpation or with deep breathing. HEART EXAMINATION: Regular rate and rhythm. S1, S2 heard. Systolic ejection murmur at the base and left sternal border, no gallops or rub. ABDOMEN: Soft, nontender. Positive bowel sounds. EXTREMITIES: 2+ peripheral pulses, no lower extremity edema and no calf tenderness. NEUROLOGIC EXAMINATION: Patient is awake, alert and oriented x3. ASSESSMENT MRSA bacteremia History of mitral valve vegetation/endocarditis Pericardia effusion Febrile illness End stage renal disease on hemodialysis Hypertension Dyslipidemia Diabetes mellitus PLAN Discussed with Dr. Tesfaye and he will repeat a TK tomorrow. NPO after midnight tonight. This has been explained to the patient in great detail, questions have been answered appropriately and she is agreeable to move forward with a TK tomorrow. Continue antibiotics per ID service. Further recommendations to follow based on clinical course. Thank you kindly for this consultation. Nurse Practitioner note has been reviewed, I agree with a documented findings and plan of care. Patient was seen and examined. 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 hemodialysis for acute kidney injury 2 months in 2009 after pancreatic OR, 11/2015 diagnosed w/ chronic kidney disease-hemodialysis -last hemodialysis 06/02/19, IDDM type II, past DKA, UTI, chronic anemia, frequent body cramping, occasional low back pain, carter's palsy x2, past L leg fx, possible liver disease-recent liver bx-results unknown per pt. History of Any Multi-Drug Resistant Organisms: MRSA Date of last positivie culture/infection: 02/01/20 MDRO Source:: Blood Past Surgical History: Orthopedic Surgery, Uterine Ablation Additional Past Surgical History / Comment(s): Recent liver biopsy done at [facility] but pt states they have never contacted her with the results, 08/26/17 colonoscopy with polypectomy/bx, pancreatic resection at [facility] 2009, bone marrow biopsies X2-last one 05/19/16,. dialysis chest port x 2 with removals, Left arm shunt placement for dialysis - December 2015 and a revision done with shunt. Left forearm Vein Revision - October 2019 Past Anesthesia/Blood Transfusion Reactions: No Reported Reaction Additional Past Anesthesia/Blood Transfusion Reaction / Comment(s): Pt has received blood transfusions without reaction. Past Psychological History: No Psychological Hx Reported Additional Psychological History / Comment(s): Pt resides at her mother in laws home at this time with spouse. They are her mother in laws caretakers. She is independent. She uses no assistive device. She drives. Smoking Status: Never smoker Past Alcohol Use History: None Reported Additional Past Alcohol Use History / Comment(s): Patient is a lifelong nonsmoker. Past Drug Use History: None Reported - Past Family History Brother(s) Family Medical History: No Reported History Mother Family Medical History: Cancer Additional Family Medical History / Comment(s): . Father Family Medical History: Hypertension Additional Family Medical History / Comment(s): alcoholism Medications and Allergies Home Medications Medication Instructions Recorded Confirmed Type Cyclobenzaprine [Flexeril] 5 mg PO HS 09/14/15 03/17/20 History cloNIDine HCL 0.3 mg PO TID 12/16/16 03/17/20 History Sevelamer [Renvela] 800 mg PO DAILY PRN 08/21/17 03/17/20 History Furosemide [Lasix] 120 mg PO DAILY 10/22/17 03/17/20 History Prochlorperazine [Compazine] 5 mg PO BID PRN 10/26/17 03/17/20 History Sevelamer [Renvela] 3,200 mg PO AC-TID 03/13/18 03/17/20 History Gabapentin [Neurontin] 100 mg PO TID 05/17/18 03/17/20 History INSULIN LISPRO (humaLOG) [humaLOG] 18 unit SQ ACHS 07/12/18 03/17/20 History Omeprazole 20 mg PO BID 11/01/18 03/17/20 History Lidocaine-Prilocaine Cream [Emla 1 applic TOPICAL DAILY PRN 11/21/18 03/17/20 Hi story Cream 2.5%/2.5%] hydrALAZINE HCL [Apresoline] 100 mg PO TID 12/14/18 03/17/20 History Aspirin EC [Ecotrin Low Dose] 81 mg PO DAILY #30 tablet. 12/17/18 03/17/20 Rx Labetalol [Trandate] 400 mg PO BID #120 tab 12/17/18 03/17/20 Rx Ascorbic Acid [Vitamin C] 500 mg PO DAILY 11/08/19 03/17/20 History Atorvastatin [Lipitor] 40 mg PO HS 11/08/19 03/17/20 History HYDROcodone/APAP 7.5-325MG [Sheldon 1 tab PO TID PRN 11/08/19 03/17/20 History 7.5-325] Montelukast [Singulair] 10 mg PO HS 11/08/19 03/17/20 History Olopatadine HCl [Pataday] 1 drops BOTH EYES BID 11/08/19 03/17/20 History Insulin Glargine,Hum.rec.anlog 80 unit SQ HS 12/02/19 03/17/20 History [Basaglar Kwikpen U-100] Albuterol Sulfate [Proair Hfa] 2 puff INHALATION RT-Q6H PRN 01/28/20 03/17/20 History Docusate [Colace] 100 mg PO DAILY 01/28/20 03/17/20 History Furosemide [Lasix] 80 mg PO HS 01/28/20 03/17/20 History Sodium Polystyrene Sulfonate 30 gm PO SUMOWEFR 01/28/20 03/17/20 History [Kayexalate] diazePAM [Valium] 5 mg PO DAILY PRN 01/28/20 03/17/20 History rOPINIRole HCL [Requip] 1 mg PO TID 01/28/20 03/17/20 History Tiotropium 18 Mcg/Puff [Spiriva] 1 cap INHALATION RT-DAILY PRN 02/01/20 03/17/20 History INSULIN LISPRO (HumaLOG) [humaLOG] See Protocol SQ ACHS 03/17/20 03/17/20 History Promethazine 6.25MG/5Ml [Phenergan 12.5 mg PO Q6HR PRN 03/17/20 03/17/20 History Syrup] Allergies Allergy/AdvReac Type Severity Reaction Status Date / Time ciprofloxacin [From Cipro] AdvReac AFFECTED Verified 03/17/20 17:50 EYESIGHT ciprofloxacin HCl AdvReac AFFECTED Verified 03/17/20 17:50 [From Cipro] EYESIGHT Iodinated Contrast Media AdvReac RENAL Verified 03/17/20 17:50 FAILURE Physical Exam Vitals: Vital Signs Temp Pulse Pulse Resp BP BP Pulse Ox 03/19/20 09:24 64 97 03/19/20 07:00 98.1 F 65 17 153/72 100 03/19/20 02:25 98.2 F 64 16 145/69 100 03/19/20 00:00 76 16 03/18/20 19:42 76 16 03/18/20 18:53 98.5 F 69 20 146/68 98 03/18/20 16:05 98.8 F 69 16 157/72 100 03/18/20 12:55 98.9 F 67 16 140/66 99 03/18/20 12:25 99.5 F 68 16 144/66 03/18/20 12:15 98.8 F 67 16 142/67 99 Intake and Output 03/18/20 03/19/20 03/19/20 22:59 06:59 14:59 Intake Total 810 820 Output Total 200 Balance 810 620 Intake: Intake, IV Titration 420 Amount Sodium Chloride 0.9% 1, 120 000 ml @ 20 mls/hr IV . Q24H ONE Rx#:[id number] Vancomycin 1,500 mg In 250 Sodium Chloride 0.9% 250 ml @ 125 mls/hr IVPB ONCE ONE Rx#:[id number] cefTRIAXone 1 gm In 50 Sodium Chloride 0.9% 50 ml @ 100 mls/hr IVPB Q12HR [facility] Rx#:[id number] Oral 500 400 Blood Product 310 Rc Irr As1 Unit 310 [id number] Output: Urine 200 Other: Voiding Method Toilet Toilet # Voids 1 3 Results 03/19/20 09:55 03/18/20 06:02 CBC 03/19/20 Range/Units 09:55 WBC 4.1 (3.8-10.6) k/uL RBC 2.33 L (3.80-5.40) m/uL Hgb 7.2 L (11.4-16.0) gm/dL Hct 21.9 L (34.0-46.0) % Plt Count 85 L (150-450) k/uL Current Medications Generic Name Dose Route Start Last Admin Trade Name Freq PRN Reason Stop Dose Admin Acetaminophen 500 mg 03/17/20 20:49 03/18/20 00:59 Acetaminophen Tab 500 Mg Tab PO 500 mg Q6HR PRN Administration Fever and/ or Pain Hydrocodone Bitart/Acetaminophen 1 each 03/17/20 21:09 03/19/20 03:57 Hydrocodone/Apap 7.5-325mg 1 Each Tab PO 1 each TID PRN Administration Pain Albuterol Sulfate 2 puff 03/18/20 07:38 03/19/20 07:51 Albuterol Hfa Inhaler INHALATION 2 puff RT-QID PRN Administration Wheezing Ascorbic Acid 500 mg 03/18/20 09:00 03/19/20 07:10 Ascorbic Acid 500 Mg Tab PO 500 mg DAILY ANNI Administration Aspirin 81 mg 03/18/20 09:00 03/19/20 07:09 Aspirin 81 Mg PO 81 mg DAILY ANNI Administration Atorvastatin Calcium 40 mg 03/18/20 21:00 03/18/20 21:23 Atorvastatin 40 Mg Tab PO 40 mg HS ANNI Administration Clonidine 0.3 mg 03/17/20 22:00 03/19/20 07:09 Clonidine Hcl 0.1 Mg Tab PO 0.3 mg TID ANNI Administration Cyclobenzaprine HCl 5 mg 03/18/20 21:00 03/18/20 21:24 Cyclobenzaprine 5 Mg Tab PO 5 mg HS ANNI Administration Diazepam 5 mg 03/17/20 21:09 Diazepam 5 Mg Tab PO DAILY PRN Anxiety Docusate Sodium 100 mg 03/18/20 09:00 03/19/20 07:10 Docusate 100 Mg Cap PO 100 mg DAILY ANNI Administration Furosemide 120 mg 03/18/20 09:00 03/19/20 07:10 Furosemide 80 Mg Tab PO 120 mg DAILY ANNI Administration Furosemide 80 mg 03/18/20 21:00 03/18/20 21:24 Furosemide 80 Mg Tab PO 80 mg HS ANNI Administration Gabapentin 100 mg 03/17/20 22:00 03/19/20 07:09 Gabapentin 100 Mg Cap PO 100 mg TID ANNI Administration Hydralazine HCl 100 mg 03/17/20 22:00 03/19/20 07:09 Hydralazine Hcl 50 Mg Tab PO 100 mg TID ANNI Administration Ceftriaxone Sodium 1 gm/ 50 mls @ 100 mls/hr 03/17/20 21:30 03/19/20 07:12 Sodium Chloride IVPB 100 mls/hr Q12HR ANNI Administration Insulin Aspart 18 unit 03/18/20 07:30 03/19/20 07:03 Insulin Aspart (Novolog) 100 Unit/Ml Vial SQ Not Given ACHS ANNI Insulin Detemir 80 unit 03/17/20 22:00 03/18/20 21:02 Insulin Detemir (Levemir) 100 Unit/Ml Syr SQ Not Given HS ANNI Ketotifen Fumarate 1 drops 03/18/20 09:00 03/19/20 10:17 Ketotifen 0.025% Ophth Drops 5 Ml Btl BOTH EYES 1 drops BID ANNI Administration Labetalol HCl 400 mg 03/18/20 09:00 03/19/20 07:09 Labetalol 200 Mg Tab PO 400 mg BID ANNI Administration Lidocaine/Prilocaine 1 applic 03/17/20 21:09 Lidocaine-Prilocaine 2.5-2.5% Cream 5 Gm Tube TOPICAL DAILY PRN DIALYSIS ACCESS Miscellaneous Information 1 each 03/18/20 22:11 Vancomycin Iv Per Pharmacy 1 Each [facility] [place] DIRECTED PRN Per Protocol Protocol Montelukast Sodium 10 mg 03/18/20 21:00 03/18/20 21:24 Montelukast 10 Mg Tab PO 10 mg HS ANNI Administration Pantoprazole Sodium 40 mg 03/18/20 09:00 03/19/20 07:10 Pantoprazole 40 Mg Tablet PO 40 mg BID ANNI Administration Prochlorperazine Maleate 5 mg 03/17/20 21:09 Prochlorperazine 5 Mg Tab PO BID PRN Nausea Promethazine HCl 12.5 mg 03/17/20 21:09 Promethazine Hcl 6.25 Mg/5 Ml Cup PO Q6HR PRN Cough Ropinirole HCl 1 mg 03/17/20 22:00 03/19/20 07:09 Ropinirole Hcl 1 Mg Tab PO 1 mg TID ANNI Administration Sevelamer Carbonate 800 mg 03/17/20 21:09 Sevelamer 800 Mg Tab PO DAILY PRN SNACKS Sevelamer Carbonate 3,200 mg 03/18/20 07:30 03/19/20 07:10 Sevelamer 800 Mg Tab PO 3,200 mg AC-TID ANNI Administration Sodium Polystyrene Sulfonate 30 gm 03/18/20 09:00 03/18/20 07:32 Sodium Polystyrene Sulfonate 15 Gm/60 Ml Bottle PO 30 gm SUMOWEFR ANNI Administration Tiotropium [place] 1 puff 03/18/20 07:40 03/19/20 07:51 Tiotropium 18 Mcg/Puff Inhaler INHALATION 1 puff RT-DAILY PRN Administration Wheezing Intake and Output 03/18/20 03/19/20 03/19/20 22:59 06:59 14:59 Intake Total 810 820 Output Total 200 Balance 810 620 Intake: Intake, IV Titration 420 Amount Sodium Chloride 0.9% 1, 120 000 ml @ 20 mls/hr IV . Q24H ONE Rx#:[id number] Vancomycin 1,500 mg In 250 Sodium Chloride 0.9% 250 ml @ 125 mls/hr IVPB ONCE ONE Rx#:[id number] cefTRIAXone 1 gm In 50 Sodium Chloride 0.9% 50 ml @ 100 mls/hr IVPB Q12HR [facility] Rx#:[id number] Oral 500 400 Blood Product 310 Rc Irr As1 Unit 310 [id number] Output: Urine 200 Other: Voiding Method Toilet Toilet # Voids 1 3 03/19/20 09:55 03/18/20 06:02
[2020-03-19 10:58] LABS: % Iron Saturation 25.68 (12.00-45.00); Ferritin 2861.4 ng/mL (10.0-291.0)
[2020-03-19 11:38] LABS: Glucose,Whole Blood 177 mg/dL (75-99)
[2020-03-19] MEDS ORDERED: DARBEPOETIN ALFA 40 MCG/0.4 ML SYRINGE SQ SCH (12:00)
--- NOTE | 2020-03-19 12:17 | P.PN ---
Subjective Progress Note Date: 03/19/20 Principal diagnosis: Fever, Cytopenias Blood cultures show Presumptive MRSA as expected with her history. ID is following. Objective - Vital Signs Vital signs: Vital Signs Temp 98.1 F 03/19/20 07:00 Pulse 64 03/19/20 09:24 Resp 17 03/19/20 07:00 BP 153/72 03/19/20 07:00 Pulse Ox 97 03/19/20 09:24 Intake & Output 03/18/20 03/19/20 03/19/20 18:59 06:59 18:59 Intake Total 310 1320 Output Total 4 200 Balance 306 1120 Intake: Intake, IV Titration 420 Amount Sodium Chloride 0.9% 1, 120 000 ml @ 20 mls/hr IV . Q24H ONE Rx#:[id number] Vancomycin 1,500 mg In 250 Sodium Chloride 0.9% 250 ml @ 125 mls/hr IVPB ONCE ONE Rx#:[id number] cefTRIAXone 1 gm In 50 Sodium Chloride 0.9% 50 ml @ 100 mls/hr IVPB Q12HR [facility] Rx#:[id number] Oral 900 Blood Product 310 Rc Irr As1 Unit 310 [id number] Output: Urine 4 200 Other: Voiding Method Toilet Toilet # Voids 3 - Exam Telemedicine visit with permission per patient related to increase COVID cases at this time. Alert and Oriented Denies any swelling - Labs CBC & Chem 7: 03/19/20 09:55 03/18/20 06:02 Labs: Abnormal Lab Results - Last 24 Hours (Table) 03/17/20 03/18/20 03/19/20 Range/Units 20:17 20:53 05:42 RBC (3.80-5.40) m/uL Hgb (11.4-16.0) gm/dL Hct (34.0-46.0) % RDW (11.5-15.5) % Plt Count (150-450) k/uL Lymphocytes # (1.0-4.8) k/uL Retic Count 2.7 H (0.5-2.0) % POC Glucose (mg/dL) 113 H (75-99) mg/dL Iron (50-170) ug/dL TIBC (228-460) ug/dL Ferritin (10.0-291.0) ng/mL Lactate Dehydrogenase (120-246) U/L C-Reactive Protein (0.0-0.8) mg/dL Total Protein (PEP) (6.2-8.2) g/dL Vitamin B12 (200.0-944.0) pg/mL Crossmatch See Detail 03/19/20 03/19/20 03/19/20 Range/Units 05:42 05:42 09:55 RBC 2.33 L (3.80-5.40) m/uL Hgb 7.2 L (11.4-16.0) gm/dL Hct 21.9 L (34.0-46.0) % RDW 17.6 H (11.5-15.5) % Plt Count 85 L (150-450) k/uL Lymphocytes # 0.2 L (1.0-4.8) k/uL Retic Count (0.5-2.0) % POC Glucose (mg/dL) (75-99) mg/dL Iron 47 L (50-170) ug/dL TIBC 183 L (228-460) ug/dL Ferritin 2861.4 H (10.0-291.0) ng/mL Lactate Dehydrogenase 259 H (120-246) U/L C-Reactive Protein 17.0 H (0.0-0.8) mg/dL Total Protein (PEP) 4.9 L (6.2-8.2) g/dL Vitamin B12 1068.0 H (200.0-944.0) pg/mL Crossmatch 03/19/20 Range/Units 11:37 RBC (3.80-5.40) m/uL Hgb (11.4-16.0) gm/dL Hct (34.0-46.0) % RDW (11.5-15.5) % Plt Count (150-450) k/uL Lymphocytes # (1.0-4.8) k/uL Retic Count (0.5-2.0) % POC Glucose (mg/dL) 177 H (75-99) mg/dL Iron (50-170) ug/dL TIBC (228-460) ug/dL Ferritin (10.0-291.0) ng/mL Lactate Dehydrogenase (120-246) U/L C-Reactive Protein (0.0-0.8) mg/dL Total Protein (PEP) (6.2-8.2) g/dL Vitamin B12 (200.0-944.0) pg/mL Crossmatch Microbiology - Last 24 Hours (Table) 03/17/20 11:52 Blood Culture Gram Stain - Preliminary Blood Blood Culture - Preliminary Presumptive MRSA 03/17/20 17:07 Blood Culture Gram Stain - Preliminary Blood Blood Culture - Preliminary Presumptive MRSA 03/17/20 17:07 Blood Culture - Final Blood Assessment and Plan (1) Normocytic anemia Current Visit: Yes Status: Acute Code(s): D64.9 - ANEMIA, UNSPECIFIED SNOMED Code(s): 514632857 (2) Thrombocytopenia Current Visit: Yes Status: Acute Code(s): D69.6 - THROMBOCYTOPENIA, UNSPECIFIED SNOMED Code(s): 310477907 (3) Chronic renal failure Current Visit: No Status: Acute Code(s): N18.9 - CHRONIC KIDNEY DISEASE, UNSPECIFIED SNOMED Code(s): 70959685 (4) Congestive heart failure Current Visit: No Status: Acute Code(s): I50.9 - HEART FAILURE, UNSPECIFIED SNOMED Code(s): 73975784 (5) Diabetes Current Visit: No Status: Acute Code(s): E11.9 - TYPE 2 DIABETES MELLITUS WITHOUT COMPLICATIONS SNOMED Code(s): 29144297 (6) ESRD (end stage renal disease) on dialysis Current Visit: No Status: Acute Code(s): N18.6 - END STAGE RENAL DISEASE; Z99.2 - DEPENDENCE ON RENAL DIALYSIS SNOMED Code(s): 842024139 Plan: Transfusion support less than 7 Recheck Iron studies and defer Epogen to Nephrology. Macrocytic Anemia: This is a chronic issue, with history as described in the HPI. Most likely this is due to underlying dyspoeitic disorder. However at baseline, her counts are consistently in a safe range, and stable. Typically, she does have drop in counts in the setting of superimposed acute illnesses, with return to baseline on resolution of the same. - This is thought to be the picture given her presentation this admission as well, likely UTI. She does have admission in November of this year with the pt has MRSA bacteremia. - ID is following - Fevers improving - Cultures with Presumptive MRSA Pancytopenia w/u has been negative in the past, as noted in the HPI, including in 12/27 ( other than non specific k/l ratio increase) - During this admission, Thus the drop in counts is felt to be due to additional acute marrow suppression from the same. - Iron studies show no deficiency. Other cytopenia w/u will be repeated - Monitor counts and supplement with transfusion to keep Hgb > 7, and plt > 10 ( unless there is active bleeding). Growth factors will be used if ANC falls to < 1000 Counts are expected to recover once infection resolves. Transfusion today for hemoglobin 6.8 - Case d/w RN, It was recommended that only irradiated blood products be used for transfusion support - Hemoglobun 7.2 today Thrombocytopenia: - 85K today - Coags Stable Lymphopenia: - Likely secondary to infectious process Recommendatiions: - Obtain Records from [place] - Blood culture from [place] with recent placement and history of MRSA - Patient stated abscess was also recently found in abdomen, drained and treated for infection - ID management bacteremia - Cardiology following and planning TK in am Tele - medicine visit today secondary to increased COVID Cases and risks. Patient agrees to televist appointment today. Greater than 16 minutes spent reviewing patients chart, discussion with patient, and RN.
[2020-03-19] MEDS: SODIUM POLYSTYRENE SULFONATE 15 GM/60 ML BOTTLE PO SCH (12:31)
--- NOTE | 2020-03-19 15:09 | PN ---
PROGRESS NOTE Patient is seen for followup for end-stage renal disease. Patient was admitted to the hospital with fever. She her blood cultures are positive for MRSA again. She was recently discharged last month after treatment for MRSA bacteremia and infected mitral valve endocarditis. She her cultures were positive for MRSA at that time too. The patient did finish her outpatient antibiotics. 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 PHYSICAL EXAMINATION: On examination today, blood pressure is 153/72, heart rate 65 per minute she is afebrile. The patient is seen on hemodialysis and tolerating her treatment well. Examination of lower extremities shows chronic skin changes, 1+ edema. ABDOMEN: Soft, nontender. Heart sounds are heard. An examination of the lungs shows decreased breath sounds at bases. No crackles or wheezing is heard. HOST/HOSTESS exam grossly intact. LABS: Show hemoglobin 7.2. The electrolytes are not available from today. ASSESSMENT: 1. End-stage renal disease, on hemodialysis on a Thursday, , Thursday schedule. 2. Volume overload currently being dialyzed today. We will plan for dialysis again tomorrow. 3. MRSA bacteremia with previous history of MRSA, MRSA bacteremia and infective endocarditis with mitral valve leaflet vegetation. 4. Anemia multifactorial with previous referral to Hematology no active GI bleed noted at this time, status post packed RBCs transfusion. I will maintain the patient on Aranesp as well. 5. Hypertension, currently controlled. PLAN: Continue antibiotics and continue phosphate binders. Await echocardiogram. Add Aranesp. MMODL / IJN: [id number] /
--- NOTE | 2020-03-19 15:16 | PN ---
PROGRESS NOTE Patient is seen on hemodialysis, she is tolerating her treatment well. PHYSICAL EXAMINATION: Blood pressure is 153/72, heart rate 65 per minute, she is afebrile. Examination of the heart S1, S2. Examination of lungs, bilateral breath sounds are heard. Abdomen is soft, nontender. Examination of the lower extremities shows edema 1+ bilaterally. 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 She is currently being dialyzed by [facility]. She was admitted to the hospital with fever. Blood cultures are positive for MRSA again. Patient has a history of endocarditis, mitral valve leaflet, endocarditis on her last admission in January of 2020. On examination today, patient is tolerating her treatment well. She is comfortable, awake, alert, oriented x3, not in any acute distress. Blood pressure 153/72, heart rate 65 per minute, she is afebrile. MMODL / IJN: [id number] /
--- NOTE | 2020-03-19 15:20 | ECHOF ---
Referral Reason:pericardial effusions MEASUREMENTS -------- HEIGHT: 160.0 cm WEIGHT: 77.1 kg BP: 145/69 IVSd: 1.3 cm (0.6 - 1.1) LVIDd: 3.7 cm (3.9 - 5.3) LVPWd: 1.9 cm (0.6 - 1.1) IVSs: 1.7 cm LVIDs: 2.1 cm LVPWs: 1.5 cm RVIDd: 4.3 cm (< 3.3) LAESV Index (A-L): 63.82 ml/m Ao Diam: 3.3 cm (2.0 - 3.7) AV Cusp: 1.9 cm (1.5 - 2.6) EPSS: 0.6 cm MV E Armando: 1.64 m/s MV DecT: 338 ms MV A Armando: 0.94 m/s MV E/A Ratio: 1.74 AV maxP.32 mmHg AV meanP.28 mmHg RAP: 5.00 mmHg RVSP: 105.72 mmHg MV EF SLOPE: 66.28 mm/s (70 - 150) MV EXCURSION: 13.78 mm (> 18.000) FINDINGS -------- Sinus rhythm. This was a technically adequate study. The left ventricular size is normal. There is moderate concentric left ventricular hypertrophy. O verall left ventricular systolic function is normal with, an EF between 55 - 60 %. The right ventricle is moderate to severely enlarged. LA is severely dilated >40 ml/m2 The right atrium is mildly enlarged. Interatrial and interventricular septum intact. The aortic valve is trileaflet and appears structurally normal. There is mild aortic valve sclerosi s. There is no evidence of aortic regurgitation. There is mild aortic stenosis present. Peak/me an gradient across the Aortic Valve is 25.32mmHg / 14.28mmHg. Can not exclude possible calcifaction vs vegetation/tumor of aov. Moderate mitral annular calcification present. Moderate mitral regurgitation is present. Cannot r ule out vegetation. Severe tricuspid regurgitation present. There is severe pulmonary hypertension. The right ventric ular systolic pressure, as measured by Doppler, is 105.72mmHg. There is no pulmonic regurgitation present. The aortic root size is normal. IVC Not well visulized. There is a moderate, generalized pericardial effusion present. CONCLUSIONS -------- 1. The left ventricular size is normal. 2. There is moderate concentric left ventricular hypertrophy. 3. Overall left ventricular systolic function is normal with, an EF between 55 - 60 %. 4. The right ventricle is moderate to severely enlarged. 5. LA is severely dilated >40 ml/m2 6. The right atrium is mildly enlarged. 7. There is mild aortic valve sclerosis. 8. There is mild aortic stenosis present. 9. Peak/mean gradient across the Aortic Valve is 25.32mmHg / 14.28mmHg. 10. Can not exclude possible calcifaction vs vegetation/tumor of aov. 11. Moderate mitral annular calcification present. 12. Moderate mitral regurgitation is present. 13. Cannot rule out vegetation. 14. Severe tricuspid regurgitation present. 15. There is severe pulmonary hypertension. 16. The right ventricular systolic pressure, as measured by Doppler, is 105.72mmHg. 17. There is a moderate, generalized pericardial effusion present. HYDRAULIC MODELING ENGINEER: Anne Hinton RDCS
[2020-03-19] MEDS: diazePAM 5 MG TAB PO PRN (16:27)
[2020-03-19 16:44] LABS: Glucose,Whole Blood 217 mg/dL (75-99)
[2020-03-19] MEDS ORDERED: VANCOMYCIN 1,500 MG in SODIUM CHLORIDE 0.9% 250 ML IVPB ONE (18:00)
[2020-03-19 20:10] LABS: Glucose,Whole Blood 164 mg/dL (75-99)
[2020-03-19] MEDS: INSULIN DETEMIR (LEVEMIR) 100 UNIT/ML SYR SQ SCH (21:20)
[2020-03-19] MEDS: MONTELUKAST 10 MG TAB PO SCH (21:34)
[2020-03-19] MEDS: CYCLOBENZAPRINE 5 MG TAB PO SCH (21:34)
[2020-03-19] MEDS: ATORVASTATIN 40 MG TAB PO SCH (21:34)
--- NOTE | 2020-03-20 03:51 | PN ---
PROGRESS NOTE DATE OF SERVICE: 03/19/2020 REASON FOR FOLLOWUP: MRSA bacteremia. INTERVAL HISTORY: The patient is currently afebrile. The patient is breathing comfortably. The patient denies having any chest pain, shortness of breath or cough. No nausea, no vomiting. No abdominal pain, no diarrhea. PHYSICAL EXAMINATION: Blood pressure is 144/76, pulse of 77, temperature 98.6. She is 92% on 2 L nasal cannula. General description is a middle-aged female lying in bed in no distress. RESPIRATORY SYSTEM: Unlabored breathing, clear to auscultation. HEART: S1, S2. Regular rate and rhythm. ABDOMEN: Soft, no tenderness. LAB: Hemoglobin 7.2, white count 4.1. Blood culture with MRSA. DIAGNOSTIC IMPRESSION AND PLAN: Patient with MRSA bacteremia in this patient with recent mitral valve endocarditis for which the patient did not complete her antibiotic as prescribed. Apparently, she told the dialysis unit on 02/28 that she does not need more antibiotic. Will try to get more information. Patient no evidence of any worsening which did show development of an abscess. The patient is covered with vancomycin to continue and monitor medical course closely. MMODL / IJN: [id number] /
--- NOTE | 2020-03-20 06:06 | PN ---
PROGRESS NOTE This 54-year-old white female, blood cultures show presumptive MRSA, fever, cytopenia, possibly untreated endocarditis. TK is scheduled for tomorrow morning. Blood pressure 150s over 70s, respiratory rate 16 to 18, pulse 60s to 70s, temperature 98, O2 of 97. CARDIOVASCULAR: S1, S2. LUNGS: Clear. GI: Soft. HEMATOLOGY: Negative Homans Blood culture presumptive MRSA. ASSESSMENT: 1. Normocytic anemia. 2. Thrombocytopenia. 3. Congestive heart failure. 4. Diabetes. 5. End-stage renal disease. Transfusion if the hemoglobin goes below 7. Check iron, Epogen. Chronic disorder, unclear etiology, possibly worsened with infections or bleeding. Possibly has a UTI. MRSA bacteremia, unclear etiology. Prognosis guarded. Long-term antibiotics IV for MRSA presumptive, treat endocarditis will be done as an outpatient with dialysis. Please see further orders. MMODL / IJN: [id number] /
[2020-03-20 06:49] LABS: Vancomycin,Random 30.7 ug/mL
[2020-03-20 06:51] LABS: Glucose,Whole Blood 254 mg/dL (75-99)
[2020-03-20] MEDS: ASPIRIN 81 MG PO SCH (09:43)
[2020-03-20] MEDS: INSULIN ASPART (NovoLOG) 100 UNIT/ML VIAL SQ SCH ×4 (09:43→21:12)
[2020-03-20] MEDS: ASCORBIC ACID 500 MG TAB PO SCH (09:43)
[2020-03-20] MEDS: SEVELAMER 800 MG TAB PO SCH ×3 (09:43→17:08)
[2020-03-20] MEDS: GABAPENTIN 100 MG CAP PO SCH ×3 (09:44→20:40)
[2020-03-20] MEDS: FUROSEMIDE 80 MG TAB PO SCH ×2 (09:44→20:39)
[2020-03-20] MEDS: PANTOPRAZOLE 40 MG TABLET PO SCH ×2 (09:44→20:39)
[2020-03-20] MEDS: LABETALOL 200 MG TAB PO SCH ×2 (09:44→20:39)
[2020-03-20] MEDS: cloNIDine HCL 0.1 MG TAB PO SCH ×3 (09:44→20:39)
[2020-03-20] MEDS: DOCUSATE 100 MG CAP PO SCH (09:44)
[2020-03-20] MEDS: hydrALAZINE HCL 50 MG TAB PO SCH ×3 (09:44→20:39)
[2020-03-20] MEDS: KETOTIFEN 0.025% OPHTH DROPS 5 ML BTL BOTH EYES SCH ×2 (09:44→20:40)
[2020-03-20 10:15] LABS: Anisocytosis Slight; Basophils % (A) 0 %; Eosinophils # (A) 0.1 k/uL (0-0.7); Eosinophils % (A) 3 %; HCT 20.9 % (34.0-46.0); Lymphocytes # (A) 0.2 k/uL (1.0-4.8); Lymphocytes % (A) 6 %; MCH 32.1 pg (25.0-35.0); MCHC 33.7 g/dL (31.0-37.0); MCV 95.3 fL (80.0-100.0); Mean Platelet Volume 8.3; Monocytes # (A) 0.2 k/uL (0-1.0); Monocytes % (A) 8 %; Neutrophils # (A) 2.5 k/uL (1.3-7.7); Neutrophils % (A) 82 %; RBC 2.19 m/uL (3.80-5.40); WBC 3.1 k/uL (3.8-10.6)
[2020-03-20 10:24] LABS: Platelet Count 74 k/uL (150-450)
[2020-03-20] MEDS: ALBUTEROL HFA INHALER INHALATION PRN ×2 (11:15→15:58)
[2020-03-20] MEDS: TIOTROPIUM 18 MCG/PUFF INHALER INHALATION PRN (11:15)
[2020-03-20 11:42] LABS: Glucose,Whole Blood 161 mg/dL (75-99)
--- NOTE | 2020-03-20 11:55 | CDI ---
Documentation Clarification Form Date: 03/20/2020 10:35:00 AM From: Halina Porter RN, CCDS Admit Date: 03/17/2020 06:59:00 PM Patient Name: Sara Desouza Visit Number: [id number] Discharge Date: ATTENTION: The Clinical Documentation Specialists (CDI) and [facility] Coding Staff appreciate your assistance in clarifying documentation. Please respond to the clarification below the line at the bottom and electronically sign. The CDI & [facility] Coding staff will review the response and follow-up if needed. Please note: Queries are made part of the Legal Health Record. If you have any questions, please contact the author of this message via ITS. Dr. David Bragg The patient presented with fever, weakness. 03/18 ID consult has documented sepsis present on admission. Please render your professional opinion if sepsis ruled in or ruled out. History/Risk Factors: Mitral wall endocarditis, ESRD on HD, Heart Failure, Diabetes Mellitus, Hypertension Liver disease Clinical Indicators: 54-year-old female who present on 03/17 with complaints of fever. History on mitral wall endocarditis was discharged home on 02/09/2020 with a plan for 6-8 weeks of IV Vancomycin, which has not been completed. CT of chest and abdomen with evidence of moderate pericardial effusion. 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 1) Sepsis, 2) Bacteremia In your professional opinion, please clarify if these findings signify one of the following conditions, whether the condition is POA, and cause, if known: Condition Sepsis ruled out Sepsis ruled in present on admission Other, please specify Unable to determine organism Link or clarify if there is associated (due to/with): Organ failure Shock SIRS Criteria (2 or more of the following may indicate SIRS): -Temperature < 96.8F (36C) or > 101.0F (38.3C) -Heart Rate > 90 bpm -Respiratory Rate > 20 breaths/min or PaCO2 < 32 mmHg -White Blood Cell Count > 12,000 or < 4,000 cells/mm3 or > 10% bands -Lactate >2.0 mmol/L (>4.0 is equivalent to septic shock) (Last Revision: August 2017) MTDD
[2020-03-20] MEDS: HYDROcodone/APAP 7.5-325MG 1 EACH TAB PO PRN ×2 (13:22→20:45)
[2020-03-20 13:42] LABS: Albumin 2.99 g/dL (3.80-4.90); Gamma Globulin 0.49 g/dL (0.70-1.50)
--- NOTE | 2020-03-20 15:04 | PN ---
PROGRESS NOTE Patient is seen for followup for end-stage renal disease. She is currently seen on dialysis tolerating her treatment well. PHYSICAL EXAMINATION: Blood pressure was 164/74, this morning, heart rate 72 per minute she is afebrile. Examination of lower extremities shows edema, 2+ bilaterally. EDGER RUNNER exam grossly intact. Abdomen is soft, nontender. LABS: 1. Show hemoglobin 7.0. Potassium was 5.0 on 03/18/2020. ASSESSMENT: 1. Assessment is end-stage renal disease, on hemodialysis on a Thursday, , Thursday schedule. 2. Anemia with history of myelodysplasia, status post packed RBCs. No active GI bleed noted at this time. 3. MRSA bacteremia with history of mitral valve leaflet, endocarditis in January, status post IV antibiotics, now with new PermCath. The initial echocardiogram is negative however patient is scheduled for TK today. The patient has been advised that if her blood cultures remain positive, she may need this catheter removed. So far, repeat culture blood culture was negative. 4. CKD mineral bone disorder. 5. History of anaphylactic reaction during sedation for PermCath placement as well as an other surgery previously. The patient is very reluctant as it is not known what she was allergic to. I did discuss with the vascular surgeon with her vascular surgeon and who stated that patient had developed severe periorbital edema, bradycardia and hemodynamic collapse. Again, it is not known as to what was she allergic to. I will maintain on hydrocortisone prior to the TK. PLAN: Hemodialysis today add hydrocortisone prior to procedure. Monitor carefully for any anaphylactic reaction, bradycardia or hypotension postprocedure post TK. MMODL / IJN: [id number] /
[2020-03-20 15:29] LABS: African American GFR (CKD) 8.1 (60.0-200.0); Albumin 3.3 g/dL (3.80-4.90); Albumin/Globulin Ratio 1.83 (1.60-3.17); Anion Gap 11.7 mmol/L (4.00-12.00); BUN/Creat Ratio 6.83 Ratio (12.00-20.00); Calcium 8.4 mg/dL (8.7-10.3); Carbon Dioxide 27.3 mmol/L (21.6-31.8); Globulin 1.8 g/dL (1.6-3.3); Potassium 4.4 mmol/L (3.5-5.5); Total Bilirubin 0.3 mg/dL (0.3-1.2); Total Protein 5.1 g/dL (6.2-8.2)
[2020-03-20 16:36] LABS: Glucose,Whole Blood 305 mg/dL (75-99)
[2020-03-20] MEDS ORDERED: HYDROCORTISONE SUCCINATE 100 MG/2 ML VIAL IV PRN (17:21)
[2020-03-20] MEDS: ATORVASTATIN 40 MG TAB PO SCH (20:40)
[2020-03-20] MEDS: MONTELUKAST 10 MG TAB PO SCH (20:40)
[2020-03-20] MEDS: CYCLOBENZAPRINE 5 MG TAB PO SCH (20:40)
[2020-03-20 20:50] LABS: Glucose,Whole Blood 371 mg/dL (75-99)
[2020-03-20] MEDS: INSULIN DETEMIR (LEVEMIR) 100 UNIT/ML SYR SQ SCH (21:12)
--- NOTE | 2020-03-21 02:28 | PN ---
PROGRESS NOTE DATE OF SERVICE: 03/20/2020 REASON FOR FOLLOWUP: MRSA bacteremia, source likely endocarditis plus minus PermCath infection. INTERVAL HISTORY: The patient is currently afebrile. The patient is breathing comfortably. The patient denies having any chest pain, shortness of breath or cough. No nausea, no vomiting. No abdominal pain or diarrhea. PHYSICAL EXAMINATION: Blood pressure is 171/78 with a pulse of 76, temperature 98. She is 93% on room air. General description is a middle-aged female in the bed in no distress. RESPIRATORY SYSTEM: Unlabored breathing, decreased breath sounds at the base. No wheeze. HEART: S1, S2. Regular rate and rhythm. ABDOMEN: Soft, no tenderness. LABS: Hemoglobin 7, white count 3.1, BUN of 43, creatinine 6.3. Blood cultures on 03/19 so far negative. DIAGNOSTIC IMPRESSION AND PLAN: Patient with MRSA bacteremia with recent diagnosis of endocarditis. Unfortunately, the patient did not receive adequate antibiotic therapy for the same and also have a catheter which is highly suspicious for possible seeding of the catheter as well and we will not be able to clear this bacteremia without removal of that catheter. The patient she cannot go for any further surgery. We will discuss further with Nephrology. Order a TK. Continue with vancomycin. Monitor clinical course closely. MMODL / IJN: [id number] /
--- NOTE | 2020-03-21 05:40 | PN ---
PROGRESS NOTE A 54-year-old white female, end-stage renal disease, was suppose to get a TK today has been delayed until tomorrow for the TK. Dialysis was done today. CARDIOVASCULAR: S1, S2. LUNGS: Clear. GI: Soft. PSYCH: Fair mood and affect. Vital signs reviewed. ASSESSMENT: Acute febrile illness, possibly endocarditis. IV antibiotics are continuing. Await for TK tomorrow. Dialysis is done today. Accu-Chek protocol has been done. Hydrocortisone for adrenal insufficiency has been. Prognosis guarded. Follow up in the next 24 to 48 hours after TK result. MMODL / IJN: [id number] /
[2020-03-21 06:10] LABS: African American GFR (CKD) 8.1 (60.0-200.0)
[2020-03-21 06:31] LABS: Vancomycin,Random 20.2 ug/mL
[2020-03-21 07:03] LABS: Glucose,Whole Blood 71 mg/dL (75-99)
[2020-03-21] MEDS ORDERED: fentaNYL (PF) 50 MCG/ML 2 ML AMP ONE (07:28)
[2020-03-21] MEDS: INSULIN ASPART (NovoLOG) 100 UNIT/ML VIAL SQ SCH ×4 (07:30→21:08)
[2020-03-21] MEDS ORDERED: IV FLUID CONTINUATION 500 ML IV ONE (07:58)
[2020-03-21] MEDS: BENZOCAINE SPRAY 1 CAN TOPICAL ONE ×2 (08:03→08:09)
[2020-03-21] MEDS ORDERED: fentaNYL (PF) 50 MCG/ML 2 ML AMP IV ONE (08:09)
[2020-03-21] MEDS ORDERED: MIDAZOLAM 2 MG/2 ML VIAL IV ONE (08:09)
[2020-03-21] MEDS: TIOTROPIUM 18 MCG/PUFF INHALER INHALATION PRN (08:59)
[2020-03-21] MEDS: ALBUTEROL HFA INHALER INHALATION PRN ×3 (08:59→20:52)
[2020-03-21] MEDS ORDERED: VANCOMYCIN 1,500 MG in SODIUM CHLORIDE 0.9% 250 ML IVPB ONE (09:00)
[2020-03-21] MEDS: ASPIRIN 81 MG PO SCH (09:10)
[2020-03-21] MEDS: cloNIDine HCL 0.1 MG TAB PO SCH ×3 (09:10→20:30)
[2020-03-21] MEDS: LABETALOL 200 MG TAB PO SCH ×2 (09:10→20:35)
[2020-03-21] MEDS: SEVELAMER 800 MG TAB PO SCH ×3 (09:10→17:09)
[2020-03-21] MEDS: ASCORBIC ACID 500 MG TAB PO SCH (09:11)
[2020-03-21] MEDS: GABAPENTIN 100 MG CAP PO SCH ×3 (09:11→20:31)
[2020-03-21] MEDS: DOCUSATE 100 MG CAP PO SCH (09:11)
[2020-03-21] MEDS: hydrALAZINE HCL 50 MG TAB PO SCH ×3 (09:12→20:31)
[2020-03-21] MEDS: SODIUM POLYSTYRENE SULFONATE 15 GM/60 ML BOTTLE PO SCH (09:12)
[2020-03-21] MEDS: PANTOPRAZOLE 40 MG TABLET PO SCH ×2 (09:12→20:31)
[2020-03-21] MEDS: FUROSEMIDE 80 MG TAB PO SCH ×2 (09:13→20:32)
[2020-03-21] MEDS: KETOTIFEN 0.025% OPHTH DROPS 5 ML BTL BOTH EYES SCH ×2 (09:13→20:32)
[2020-03-21 10:37] LABS: Glucose,Whole Blood 165 mg/dL (75-99)
--- NOTE | 2020-03-21 10:56 | ECHOT ---
TRANSESOPHAGEAL ECHOCARDIOGRAM DATE: March 17, 2020 PERFORMING PHYSICIAN: Urbano Tesfaye MD. PROCEDURE PERFORMED: Transesophageal echocardiogram. INDICATION: This is a 54-year-old female patient with end-stage renal disease on hemodialysis, who was diagnosed with infective endocarditis several weeks ago. Based on TK showed vegetation on the mitral valve. She presented to the hospital again with fever and chills and blood culture came in to be consistent with MRSA. Because of that, a transesophageal echocardiogram was advised. COMPLICATION: None. LEVEL OF SEDATION: Moderate with sedation length of about 15 minutes. PROCEDURE DESCRIPTION: After obtaining informed consent, the patient was brought to the transesophageal echocardiogram suite. A pulse oximetry and heart rate monitors were attached to the patient. Subsequently, the transesophageal echocardiogram probe was advanced through the bite guard to the mid esophageal where 2D echocardiogram as well as well as continuous and pulse wave Doppler as well as color Doppler were obtained from multiple angles. The procedure was performed and completed without any complication. FINDINGS: Findings the left ventricular dimension and systolic function appeared to be within normal limits. The ejection fraction appeared to be in the range of 55%. The right ventricle appeared to be within normal limits for dimension as well as function. The left atrium and right atrium are dilated. The left atrial appendage was not well visualized. The interatrial septum appeared to be intact. The mitral valve appeared to be appeared to be mildly thickened with evidence of echodensity, was attached to the posterior mitral anulus appeared with the vegetation as well and seems to be consistent with abscess. The aortic, mitral intervalvular fibrosa seems to be intact. The aortic valve appeared to be trileaflet valve with evidence of aortic sclerosis without stenosis and without any evidence of aortic insufficiency. No clear-cut vegetations were identified on the aortic valve. There was an area around the aortic valve appeared to be echolucent and likely represents pericardial effusion with differential diagnosis of saundra-aortic abscess. The tricuspid valve appeared to be mildly thickened with evidence of moderate tricuspid regurgitation. The pulmonic valve appeared to be intact as well. CONCLUSION: 1. Infective endocarditis with evidence of abscess and vegetation attached to the posterior mitral leaflet with evidence of moderate mitral insufficiency. 2. Aortic sclerosis without any evidence of aortic stenosis or aortic regurgitation and without any vegetation attached to the aortic valve. 3. The aortic, mitral, intervalvular fibrosa appeared to be intact. 4. An echolucent space around the aorta, likely represent pericardial effusion with the differential diagnosis of saundra-aortic abscess. 5. The tricuspid valve appeared to be mildly thickened with evidence of moderate tricuspid regurgitation. No evidence of vegetations were seen on tricuspid valve. 6. Intact pulmonic valve as well. The pulmonic valve overall was not well visualized. 7. Normal left ventricular dimension and systolic function with EF between 55-60 percent. 8. Moderate biatrial enlargement. 9. Intact interatrial septum. MMODL / IJN: [id number] /
--- NOTE | 2020-03-21 11:34 | CDI ---
Documentation Clarification Form Date: 03/21/2020 11:11:09 AM From: Halina Porter RN, CCDS Admit Date: 03/17/2020 06:59:00 PM Patient Name: Sara Desouza Visit Number: [id number] Discharge Date: ATTENTION: The Clinical Documentation Specialists (CDI) and [facility] Coding Staff appreciate your assistance in clarifying documentation. Please respond to the clarification below the line at the bottom and electronically sign. The CDI & [facility] Coding staff will review the response and follow-up if needed. Please note: Queries are made part of the Legal Health Record. If you have any questions, please contact the author of this message via ITS. Dr. David Bragg Heart failure is documented in the past medical history . Please clarify the type and acuity of the heart failure. History/Risk Factors: Blood Disorder, Heart Failure, Diabetes Mellitus, ESRD on HD, Liver Disease Clinical Indicators: 62-year-old female present to ED on 03/17 with fever, weakness, malaise, headache and shortness of breath. 03/17 VS/Pulse OX: 163/64 99 18 103.5 92 % RA 03/17 CXR: Cardiomegaly. Increased pulmonary vascularity unchanged. No definite heart failure 03/19 Echocardiogram Results: Moderate concentric left ventricular hypertrophy. Overall left ventricular systolic function is normal with, an EF 55-60% Treatment: Lasix 120 mg po daily Lasix 80 mg po hs Apresoline 10 mg po tid Labetalol Hcl 400 mg po bid In your professional opinion, can you please clarify the acuity and type of CHF if known? Chronic Diastolic Heart Failure Acute on Chronic Diastolic Heart Failure Unable to Determine Other, please specify (Last Revision: August 2017) MTDD
--- NOTE | 2020-03-21 13:11 | PN ---
PROGRESS NOTE DATE OF SERVICE: 03/21/2020 REASON FOR FOLLOWUP: MRSA bacteremia secondary to endocarditis. INTERVAL HISTORY: Patient is currently afebrile. The patient is status post TK that was completed this morning in this patient who did have evidence of posterior mild wall endocarditis along with concern for abscess. The patient tolerated the procedure. The patient denies having any chest pain, no shortness of breath, no cough. No nausea, no vomiting. No abdominal pain, no diarrhea. PHYSICAL EXAMINATION: Blood pressure 136/69 with a pulse of 65, temperature 98.4, she is 94% on room air. General description is a middle-aged female, up in the in no distress. RESPIRATORY SYSTEM: Unlabored breathing, clear to auscultation anteriorly. HEART: S1, S2. Regular rate and rhythm. ABDOMEN: Soft, no tenderness. LABS: Vanco trough is 20. Blood cultures and 03/20 so far negative. DIAGNOSTIC IMPRESSION AND PLAN: Patient with MRSA bacteremia, source is mitral wall endocarditis and concern for an abscess. CT Surgery has been consulted. Patient to continue with vancomycin and will monitor clinical course closely. MMODL / IJN: [id number] /
--- NOTE | 2020-03-21 15:55 | P.GSCN ---
History of Present Illness Consult date: 03/21/20 Reason for Consult: Infected endocarditis Requesting physician: Urbano Tesfaye History of present illness: This is a 54-year-old female who follows on an outpatient basis with Dr. David Bragg. She has a recent history of MRSA bacterial endocarditis hypertension, hyperlipidemia, end-stage renal disease on hemodialysis Tuesdays, , Saturdays, and some dependent diabetes, pancreatitis, chronic anemia as well as multiple other medical core morbidities. She was recently in [facility] for bacteremia, infected endocarditis of the aortic and mitral valve and was treated with IV vancomycin. Blood cultures eventually were negative and she was discharged to home on IV vancomycin and oral Bactrim. She presented back to [facility] emergency room March 17 with complaints of fever, weakness, and generalized malaise. Temperature on admission was 103.5F. Chest x-ray demonstrated cardiomegaly with increased pulmonary vascularity. EKG demonstrated normal sinus rhythm with nonspecific S T-wave changes. CT of the chest and abdomen demonstrated moderate pericardial effusion, cardiomegaly, s plenomegaly, groundglass pulmonary interstitial infiltrates, and nonspecific mediastinal and abdominal lymphadenopathy. Lab work revealed white blood cell count 7.0, hemoglobin 6.9, platelet count 100,000, d-dimer 8.25, BUN 27 with creatinine 3.37, CRP 56.2, pro-calcitonin 9.82, and she was negative for Covid. She was admitted for evaluation and treatment with consultation placed to infectious disease, nephrology, hematology, as well as cardiology. Initial blood cultures grew MRSA. She was placed on IV vancomycin. Transthoracic echocardiogram was completed demonstrating normal left ventricular systolic function with EF 55-60%, moderate to severely enlarged right ventricle, right and left atrium enlargement, mild aortic stenosis with peak/mean gradient 25/14 mmHg, vegetation on the aortic valve, moderate mitral annular calcification with moderate mitral regurgitation and vegetation on the mitral valve, severe tricuspid regurgitation with severe pulmonary hypertension, and moderate generalized pericardial effusion. Due to these findings along with positive blood cultures and recent history of bacterial endocarditis recommendations were made for transesophageal echocardiogram which was completed today and which demonstrated evidence of abscess and vegetation attached to the posterior mitral leaflet with evidence of moderate mitral insufficiency, echolucent space around the aorta likely representing pericardial effusion with periaortic abscess, mild tricuspid regurgitation, moderate biatrial enlargement with normal left ventricular systolic function, EF 55-60%. Consultation was placed to Dr. Plata from cardiothoracic surgery for surgical recommendations. Review of Systems Review of systems was completed and was negative except as noted - Constitutional Reports as per HPI, Reports chills, Reports fever, Reports malaise - Cardiovascular Reports as per HPI, Reports shortness of breath Past Medical History Past Medical History: Blood Disorder, Heart Failure, Diabetes Mellitus, Dialysis, Hyperlipidemia, Hypertension, Liver Disease, Pneumonia, Renal Disease Additional Past Medical History / Comment(s): Bilateral cataracts, recently diagnosed with bilateral retinal hemorrhages, hypertriglyceridemia-induced acute pancreatitis, THEN necrotizing pancreatitis. hemodialysis for acute kidney injury 2 months in 2009 after pancreatic OR, 11/2015 diagnosed w/ chronic kidney disease-hemodialysis -last hemodialysis 06/02/19, IDDM type II, past DKA, UTI, chronic anemia, frequent body cramping, occasional low back pain, carter's palsy x2, past L leg fx, possible liver disease-recent liver bx-results unknown per pt. History of Any Multi-Drug Resistant Organisms: MRSA Year Discovered:: 03/17/20 MDRO Source:: Blood Past Surgical History: Orthopedic Surgery, Uterine Ablation Additional Past Surgical History / Comment(s): Recent liver biopsy done at [place] but pt states they have never contacted her with the results, 08/26/17 colonoscopy with polypectomy/bx, pancreatic resection at [facility] 2009, bone marrow biopsies X2-last one 05/19/16,. dialysis chest port x 2 with removals, Left arm shunt placement for dialysis - December 2015 and a revision done with shunt. Left forearm Vein Revision - October 2019 Past Anesthesia/Blood Transfusion Reactions: No Reported Reaction Additional Past Anesthesia/Blood Transfusion Reaction / Comm: Pt has received blood transfusions without reaction. Past Psychological History: No Psychological Hx Reported Additional Psychological History / Comment(s): Pt resides at her mother in laws home at this time with spouse. They are her mother in laws caretakers. She is independent. She uses no assistive device. She drives. Smoking Status: Never smoker Past Alcohol Use History: None Reported Additional Past Alcohol Use History / Comment(s): Patient is a lifelong nonsmoke r. Past Drug Use History: None Reported - Past Family History Brother(s) Family Medical History: No Reported History Mother Family Medical History: Cancer Additional Family Medical History / Comment(s): . Father Family Medical History: Hypertension Additional Family Medical History / Comment(s): alcoholism Medications and Allergies Home Medications Medication Instructions Recorded Confirmed Type Cyclobenzaprine [Flexeril] 5 mg PO HS 09/14/15 03/17/20 History cloNIDine HCL 0.3 mg PO TID 12/16/16 03/17/20 History Sevelamer [Renvela] 800 mg PO DAILY PRN 08/21/17 03/17/20 History Furosemide [Lasix] 120 mg PO DAILY 10/22/17 03/17/20 History Prochlorperazine [Compazine] 5 mg PO BID PRN 10/26/17 03/17/20 History Sevelamer [Renvela] 3,200 mg PO AC-TID 03/13/18 03/17/20 History Gabapentin [Neurontin] 100 mg PO TID 05/17/18 03/17/20 History INSULIN LISPRO (humaLOG) [humaLOG] 18 unit SQ ACHS 07/12/18 03/17/20 History Omeprazole 20 mg PO BID 11/01/18 03/17/20 History Lidocaine-Prilocaine Cream [Emla 1 applic TOPICAL DAILY PRN 11/21/18 03/17/20 History Cream 2.5%/2.5%] hydrALAZINE HCL [Apresoline] 100 mg PO TID 12/14/18 03/17/20 History Aspirin EC [Ecotrin Low Dose] 81 mg PO DAILY #30 tablet. 12/17/18 03/17/20 Rx Labetalol [Trandate] 400 mg PO BID #120 tab 12/17/18 03/17/20 Rx Ascorbic Acid [Vitamin C] 500 mg PO DAILY 11/08/19 03/17/20 History Atorvastatin [Lipitor] 40 mg PO HS 11/08/19 03/17/20 History HYDROcodone/APAP 7.5-325MG [Loving 1 tab PO TID PRN 11/08/19 03/17/20 History 7.5-325] Montelukast [Singulair] 10 mg PO HS 11/08/19 03/17/20 History Olopatadine HCl [Pataday] 1 drops BOTH EYES BID 11/08/19 03/17/20 History Insulin Glargine,Hum.rec.anlog 80 unit SQ HS 12/02/19 03/17/20 History [Basaglar Kwikpen U-100] Albuterol Sulfate [Proair Hfa] 2 puff INHALATION RT-Q6H PRN 01/28/20 03/17/20 History Docusate [Colace] 100 mg PO DAILY 01/28/20 03/17/20 History Furosemide [Lasix] 80 mg PO HS 01/28/20 03/17/20 History Sodium Polystyrene Sulfonate 30 gm PO SUMOWEFR 01/28/20 03/17/20 History [Kayexalate] diazePAM [Valium] 5 mg PO DAILY PRN 01/28/20 03/17/20 History rOPINIRole HCL [Requip] 1 mg PO TID 01/28/20 03/17/20 History Tiotropium 18 Mcg/Puff [Spiriva] 1 cap INHALATION RT-DAILY PRN 02/01/20 03/17/20 History INSULIN LISPRO (HumaLOG) [humaLOG] See Protocol SQ ACHS 03/17/20 03/17/20 History Promethazine 6.25MG/5Ml [Phenergan 12.5 mg PO Q6HR PRN 03/17/20 03/17/20 History Syrup] Allergies Allergy/AdvReac Type Severity Reaction Status Date / Time ciprofloxacin [From Cipro] AdvReac AFFECTED Verified 03/17/20 17:50 EYESIGHT ciprofloxacin HCl AdvReac AFFECTED Verified 03/17/20 17:50 [From Cipro] EYESIGHT Iodinated Contrast Media AdvReac RENAL Verified 03/17/20 17:50 FAILURE Surgical - Exam Vital Signs Temp Pulse Resp BP Pulse Ox 103.5 F H 99 18 163/64 92 L 03/17/20 16:21 03/17/20 16:21 03/17/20 16:21 03/17/20 16:21 03/17/20 16:21 - General well developed, well nourished, no distress, no pain, chronically ill - Eyes normal ocular movement - ENT no hearing loss - Neck no masses, no bruits, trachea midline - Respiratory Lungs sounds diminished bilaterally. Respirations even, nonlabored. Currently on room air with oxygen saturation 94%. No chest wall deformities. - Cardiovascular S1, S2 present, positive systolic murmur heard. Regular rate and rhythm. Palpable peripheral pulses bilaterally. Bilateral lower extremity 1-2+ edema present. No calf pain or tenderness noted. - Abdomen Abdomen: soft, non tender, bowel sounds - Genitourinary Deferred - Rectum Deferred - Integumentary no rash, no growths - Neurologic normal coordination, normal sensation - Musculoskeletal normal gait, normal posture - Psychiatric oriented to time, oriented to person, oriented to place, speech is normal, memory intact Results - Labs 03/20/20 05:31 03/21/20 05:49 Abnormal Lab Results - Last 24 Hours (Table) 03/20/20 03/20/20 03/20/20 Range/Units 05:31 05:31 16:34 Sodium 131 L (135-145) mmol/L Chloride 92 L (96-109) mmol/L BUN 43.0 H (9.0-27.0) mg/dL Creatinine 6.3 H 6.3 H (0.6-1.5) mg/dL Est GFR (CKD-EPI)AfAm 8.1 L 8.1 L (60.0-200.0) Est GFR (CKD-EPI)NonAf 7.0 L 7.0 L (60.0-200.0) BUN/Creatinine Ratio 6.83 L (12.00-20.00) Ratio Glucose 232 H (70-110) mg/dL POC Glucose (mg/dL) 305 H (75-99) mg/dL Calcium 8.4 L (8.7-10.3) mg/dL Total Protein 5.1 L (6.2-8.2) g/dL Albumin 3.30 L (3.80-4.90) g/dL 03/20/20 03/21/20 03/21/20 Range/Units 20:49 05:49 07:01 Sodium (135-145) mmol/L Chloride (96-109) mmol/L BUN (9.0-27.0) mg/dL Creatinine 4.88 H (0.6-1.5) mg/dL Est GFR (CKD-EPI)AfAm (60.0-200.0) Est GFR (CKD-EPI)NonAf (60.0-200.0) BUN/Creatinine Ratio (12.00-20.00) Ratio Glucose (70-110) mg/dL POC Glucose (mg/dL) 371 H 71 L (75-99) mg/dL Calcium (8.7-10.3) mg/dL Total Protein (6.2-8.2) g/dL Albumin (3.80-4.90) g/dL 03/21/20 Range/Units 10:37 Sodium (135-145) mmol/L Chloride (96-109) mmol/L BUN (9.0-27.0) mg/dL Creatinine (0.6-1.5) mg/dL Est GFR (CKD-EPI)AfAm (60.0-200.0) Est GFR (CKD-EPI)NonAf (60.0-200.0) BUN/Creatinine Ratio (12.00-20.00) Ratio Glucose (70-110) mg/dL POC Glucose (mg/dL) 165 H (75-99) mg/dL Calcium (8.7-10.3) mg/dL Total Protein (6.2-8.2) g/dL Albumin (3.80-4.90) g/dL Microbiology - Last 24 Hours (Table) 03/20/20 05:31 Blood Culture - Preliminary Blood No Growth after 24 hours 03/19/20 05:42 Blood Culture - Preliminary Blood No Growth after 48 hours Diabetes panel 03/20/20 03/20/20 03/21/20 Range/Units 05:31 05:31 05:49 Sodium 131 L (135-145) mmol/L Potassium 4.4 (3.5-5.5) mmol/L Chloride 92 L (96-109) mmol/L Carbon Dioxide 27.3 (21.6-31.8) mmol/L BUN 43.0 H (9.0-27.0) mg/dL Creatinine 6.3 H 6.3 H 4.88 H (0.6-1.5) mg/dL Glucose 232 H (70-110) mg/dL Calcium 8.4 L (8.7-10.3) mg/dL AST 13 (13-35) U/L ALT 14 (8-44) U/L Alkaline Phosphatase 115 (41-126) U/L Total Protein 5.1 L (6.2-8.2) g/dL Albumin 3.30 L (3.80-4.90) g/dL Calcium panel 03/20/20 Range/Units 05:31 Calcium 8.4 L (8.7-10.3) mg/dL Albumin 3.30 L (3.80-4.90) g/dL Pituitary panel 03/20/20 03/20/20 03/21/20 Range/Units 05:31 05:31 05:49 Sodium 131 L (135-145) mmol/L Potassium 4.4 (3.5-5.5) mmol/L Chloride 92 L (96-109) mmol/L Carbon Dioxide 27.3 (21.6-31.8) mmol/L BUN 43.0 H (9.0-27.0) mg/dL Creatinine 6.3 H 6.3 H 4.88 H (0.6-1.5) mg/dL Glucose 232 H (70-110) mg/dL Calcium 8.4 L (8.7-10.3) mg/dL Adrenal panel 03/20/20 03/20/20 03/21/20 Range/Units 05:31 05:31 05:49 Sodium 131 L (135-145) mmol/L Potassium 4.4 (3.5-5.5) mmol/L Chloride 92 L (96-109) mmol/L Carbon Dioxide 27.3 (21.6-31.8) mmol/L BUN 43.0 H (9.0-27.0) mg/dL Creatinine 6.3 H 6.3 H 4.88 H (0.6-1.5) mg/dL Glucose 232 H (70-110) mg/dL Calcium 8.4 L (8.7-10.3) mg/dL Total Bilirubin 0.3 (0.3-1.2) mg/dL AST 13 (13-35) U/L ALT 14 (8-44) U/L Alkaline Phosphatase 115 (41-126) U/L Total Protein 5.1 L (6.2-8.2) g/dL Albumin 3.30 L (3.80-4.90) g/dL - Imaging Chest x-ray: report reviewed, image reviewed CT scan - abdomen: report reviewed, image reviewed CT scan - chest: report reviewed, image reviewed EKG: image reviewed Additional studies: TK films reviewed with Dr. Plata Assessment and Plan Assessment: 1. Infective endocarditis, MRSA bacteremia 2. Hypertension 3. Hyperlipidemia 4. End-stage renal disease on hemodialysis 5. Chronic pancreatitis 6. Chronic anemia 7. Multiple other comorbidities Plan: The patient was seen and examined at the bedside with Dr. Plata. A c fernandez/diagnostics were reviewed in detail. The patient definitely needs surgery, likely homograft utilization as any bioprosthetic or mechanical valve would have increased risk for reinfection. The patient should be transferred to a tertiary care facility such as [facility] for surgical management. In the meantime continue IV antibiotic administration per infectious disease. Our rec ommendations were discussed with the patient and her in detail. Dr. Plata will discuss with Dr. Tesfaye. Medical management of other comorbidities per Dr. Bragg as well as other consultants. Thank you Dr. Tesfaye for this consult. Please call us with any further questions Time with Patient: Greater than 30
--- NOTE | 2020-03-21 16:08 | PN ---
PROGRESS NOTE Patient is seen for followup for end-stage renal disease. Her TK from yesterday showed infective endocarditis with evidence of abscess and vegetation attached to the posterior mitral valve leaflet. There are plans for possible surgery. Blood culture has been negative thus far. Overall, patient denies any significant complaints. PHYSICAL EXAMINATION: On examination today, blood pressure is 166/69, heart rate 69 per minute. She is afebrile. EXAMINATION OF THE HEART: S1 and S2. EXAMINATION OF LUNGS: Bilateral breath sounds are heard. ABDOMEN: Soft, non-tender. Examination of lower extremities shows edema 1+ bilaterally. BANANA EXPERT exam is grossly intact. LABS: Labs show sodium of 131, potassium 4.4, chloride 92, hemoglobin 7.0 g/dL. ASSESSMENT: 1. End-stage renal disease, on hemodialysis on a Thursday, , Thursday schedule. 2. Methicillin-resistant Staphylococcus aeruginosa bacteremia from infective endocarditis with vegetation on the mitral valve and possible abscess formation now, maintained on antibiotics with CT surgery consult which is currently pending. The patient may need transfer to tertiary care center. 3. Chronic kidney disease mineral bone disorder. 4. History of anaphylactic reaction during sedation for PermCath as well as another surgery previously, status post hydrocortisone yesterday before the TK. Patient tolerated the procedure well. PLAN: Hemodialysis in a.m. Await cardiovascular thoracic surgery input. MMODL / IJN: [id number] /
[2020-03-21 16:42] LABS: Glucose,Whole Blood 273 mg/dL (75-99)
[2020-03-21] MEDS: HYDROcodone/APAP 7.5-325MG 1 EACH TAB PO PRN (20:30)
[2020-03-21] MEDS: CYCLOBENZAPRINE 5 MG TAB PO SCH (20:31)
[2020-03-21] MEDS: MONTELUKAST 10 MG TAB PO SCH (20:31)
[2020-03-21] MEDS: ATORVASTATIN 40 MG TAB PO SCH (20:31)
[2020-03-21 20:55] LABS: Glucose,Whole Blood 272 mg/dL (75-99)
[2020-03-21] MEDS: INSULIN DETEMIR (LEVEMIR) 100 UNIT/ML SYR SQ SCH (21:08)
--- NOTE | 2020-03-21 23:02 | PN ---
PROGRESS NOTE This is a 54-year-old white female. TK shows an abscess on her mitral valve. Awaiting surgical consult. Long-term antibiotics have been approved for discharge. CARDIOVASCULAR: S1, S2. LUNGS: Clear. GI: Soft. She has had no fevers. She feels much better. Remains on long-term antibiotics. We await surgical recommendations. ASSESSMENT: 1. End-stage renal disease. 2. Mitral valve abscess versus vegetations. 3. Acute on chronic anemia and leukopenia. 4. Infective endocarditis. 5. Methicillin-resistant Staphylococcus aeruginosa bacteremia. 6. Hypertension. 7. Dyslipidemia. 8. End-stage renal disease. 9. Chronic pancreatitis. 10.Chronic anemia. 11.Diabetes mellitus. 12.Hypertension. Apparently Surgery recommends transfer to a tertiary center, [facility], for surgical management. graft utilization with a bioprosthetic or mechanical valve, increased risk for re-infection. They want her transferred to a tertiary center. Try to arrange this tomorrow. MMODL / IJN: [id number] /
[2020-03-22 07:01] LABS: Glucose,Whole Blood 254 mg/dL (75-99)
[2020-03-22] MEDS: ALBUTEROL HFA INHALER INHALATION PRN ×2 (07:24→10:59)
[2020-03-22] MEDS: TIOTROPIUM 18 MCG/PUFF INHALER INHALATION PRN (07:24)
[2020-03-22] MEDS: GABAPENTIN 100 MG CAP PO SCH ×3 (07:31→20:27)
[2020-03-22] MEDS: INSULIN ASPART (NovoLOG) 100 UNIT/ML VIAL SQ SCH ×4 (07:31→20:28)
[2020-03-22] MEDS: DOCUSATE 100 MG CAP PO SCH (07:31)
[2020-03-22] MEDS: PANTOPRAZOLE 40 MG TABLET PO SCH ×2 (07:31→20:28)
[2020-03-22] MEDS: SEVELAMER 800 MG TAB PO SCH ×3 (07:32→17:01)
[2020-03-22] MEDS: ASCORBIC ACID 500 MG TAB PO SCH (07:32)
[2020-03-22] MEDS: ASPIRIN 81 MG PO SCH (07:32)
[2020-03-22] MEDS: FUROSEMIDE 80 MG TAB PO SCH ×2 (07:33→20:27)
[2020-03-22] MEDS: KETOTIFEN 0.025% OPHTH DROPS 5 ML BTL BOTH EYES SCH ×2 (07:34→20:28)
[2020-03-22] MEDS ORDERED: HEPARIN SODIUM,PORCINE 5,000 UNIT/ML 1 ML VIAL ONE (08:00)
[2020-03-22 10:21] LABS: African American GFR (CKD) 8.6 (60.0-200.0); Non-African American GFR(CKD) 7.4 (60.0-200.0)
[2020-03-22 11:38] LABS: Glucose,Whole Blood 177 mg/dL (75-99)
--- NOTE | 2020-03-22 12:02 | PN ---
PROGRESS NOTE Patient is seen on dialysis. She is tolerating her treatment well. Patient was evaluated by Cardiothoracic Surgery and plan is for possible transfer to a tertiary care facility. She denies any significant complaints today. PHYSICAL EXAMINATION: Blood pressure is 166/71, heart rate 74 per minute, she is afebrile. Examination of the heart S1, S2. Examination of the lungs, bilateral breath sounds are heard. Abdomen is soft, nontender. Examination of the lower extremities shows edema 1+ bilaterally. CHECK AND TRANSFER BEADER exam grossly intact. LABS: Show sodium of 131, potassium 4.4 on 03/20/2020. Hemoglobin was 7.2 at that time. ASSESSMENT: 1. End-stage renal disease, on hemodialysis on a Thursday, , Thursday schedule. 2. Volume overload, currently improved. 3. Infective endocarditis with vegetation/abscess on mitral valve, maintained on antibiotics, being followed by ID and a with plans for transfer to tertiary care hospital for surgery. 4. MRSA bacteremia from infective endocarditis. 5. CKD mineral bone disorder. PLAN: Goal UF about 2-3 L as tolerated with dialysis, continue antibiotics. Agree with plans for surgery. Patient is being transferred to a tertiary care hospital. MMODL / IJN: [id number] /
[2020-03-22] MEDS: hydrALAZINE HCL 50 MG TAB PO SCH ×3 (12:07→20:27)
[2020-03-22] MEDS: cloNIDine HCL 0.1 MG TAB PO SCH ×3 (12:07→20:28)
[2020-03-22] MEDS: LABETALOL 200 MG TAB PO SCH ×2 (12:08→20:33)
--- NOTE | 2020-03-22 12:50 | P.PN ---
Subjective HISTORY OF PRESENTING ILLNESS This is a pleasant 54-year-old female past medical history significant for end-stage renal disease on hemodialysis, history of endocarditis on the aortic and mitral valve, hypertension, tricuspid regurgitation, pulmonary hypertension, chronic pericardial effusion and diabetes mellitus. She follows in the office with Dr. Tesfaye. TK performed by Dr. Tesfaye revealed infective endocarditis with evidence of abscess and vegetation attached the posterior mitral leaflet with evidence of moderate mitral insufficiency, aortic valve free of vegetation, pericardial effusion, moderate biatrial enlargement with an i ntact intra-atrial septum an ejection fraction 55-60%. Cardiothoracic surgery has seen and evaluated the patient and is recommending transfer to tertiary care center for valve surgery. Patient is seen and examined and sitting on the bed. She denies symptoms of chest pain or active shortness of breath at this time. Blood pressure 185/86 heart rate 82 afebrile maintaining oxygen saturation on ro om air. Infectious disease is following currently maintained on IV antibiotics. PHYSICAL EXAMINATION CONSTITUTIONAL: No apparent distress. HEENT: Head is normocephalic. Pupils are equal, round. Sclerae anicteric. Mucous membranes of the mouth are moist. No JVD. No carotid bruit. CHEST EXAMINATION: Lungs are clear to auscultation. No chest wall tenderness is noted on palpation or with deep breathing. HEART EXAMINATION: Regular rate and rhythm. S1, S2 heard. Systolic ejection murmur at the base and left sternal border, no gallops or rub. EXTREMITIES: 2+ peripheral pulses, no lower extremity edema and no calf tenderness. ASSESSMENT MRSA bacteremia Infective endocarditis the tricuspid valve with abscess formation History of mitral valve vegetation/endocarditis Pericardia effusion Febrile illness End stage renal disease on hemodialysis Hypertension Dyslipidemia Diabetes mellitus PLAN Awaiting transfer to tertiary care center for further valve evaluation/surgery. Continue IV antibiotics per infectious disease. Nurse Practitioner note has been reviewed, I agree with a documented findings and plan of care. Patient was seen and examined. Objective - Vital Signs Vital signs: Vital Signs Temp 97.6 F 03/22/20 12:22 Pulse 82 03/22/20 12:22 Resp 18 03/22/20 12:22 BP 185/86 03/22/20 12:22 Pulse Ox 99 03/22/20 08:00 Intake & Output 03/21/20 03/22/20 03/22/20 18:59 06:59 18:59 Intake Total 1180 300 Output Total 2500 Balance 1180 300 -2500 Intake: IV 100 Oral 1080 300 Output: Hemodialysis 2500 Other: Voiding Method Toilet # Voids 3 2 - Labs CBC & Chem 7: 03/20/20 05:31 03/22/20 05:46 Labs: Abnormal Lab Results - Last 24 Hours (Table) 03/19/20 03/21/20 03/21/20 Range/Units 05:42 16:41 20:54 Creatinine (0.6-1.5) mg/dL Est GFR (CKD-EPI)AfAm (60.0-200.0) Est GFR (CKD-EPI)NonAf (60.0-200.0) POC Glucose (mg/dL) 273 H 272 H (75-99) mg/dL Methylmalonic Acid 0.92 H (<0.40) umol/L 03/22/20 03/22/20 03/22/20 Range/Units 05:46 06:58 11:36 Creatinine 6.0 H (0.6-1.5) mg/dL Est GFR (CKD-EPI)AfAm 8.6 L (60.0-200.0) Est GFR (CKD-EPI)NonAf 7.4 L (60.0-200.0) POC Glucose (mg/dL) 254 H 177 H (75-99) mg/dL Methylmalonic Acid (<0.40) umol/L Microbiology - Last 24 Hours (Table) 03/20/20 05:31 Blood Culture - Preliminary Blood No Growth after 48 hours 03/19/20 05:42 Blood Culture - Preliminary Blood No Growth after 72 hours
--- NOTE | 2020-03-22 16:13 | PN ---
PROGRESS NOTE DATE OF SERVICE: 03/22/2020 REASON FOR FOLLOWUP: MRSA bacteremia secondary to mitral wall endocarditis. INTERVAL HISTORY: Patient is currently afebrile. Patient is feeling better. Breathing comfortably. Denies having any chest pain. No shortness of breath or cough. No nausea. No vomiting, no abdominal pain, no diarrhea. PHYSICAL EXAMINATION: Blood pressure 185/86, pulse of 82, temperature is 97.6. General description is a middle-aged female, up in the bed in no distress. RESPIRATORY SYSTEM: Unlabored breathing, decreased breath sounds at bases, no wheeze. HEART: S1, S2. Regular rate and rhythm. ABDOMEN: Soft, no tenderness. LABS: Creatinine is 6.0. Blood cultures 03/19 and 03/20 have been negative so far. DIAGNOSTIC IMPRESSION AND PLAN: Patient with MRSA bacteremia, source is mitral wall endocarditis with concern for possible abscess. Patient is currently being a possible transfer to tertiary care for CT Surgery evaluation. Continue vancomycin until the patient is warranted by Surgical Team at that facility. Continue supportive care. MMODL / IJN: [id number] /
[2020-03-22 16:40] LABS: Glucose,Whole Blood 168 mg/dL (75-99)
[2020-03-22 16:43] LABS: Hepatitis B Surface AB- Quant 7.2 mIU/mL; Hepatitis B Surface Antibody Non-Reactive (Non-Reactive); Hepatitis B Surface Antigen Non-Reactive (Non-Reactive)
[2020-03-22] MEDS: HYDROcodone/APAP 7.5-325MG 1 EACH TAB PO PRN (19:37)
[2020-03-22 20:14] LABS: Glucose,Whole Blood 125 mg/dL (75-99)
[2020-03-22] MEDS: CYCLOBENZAPRINE 5 MG TAB PO SCH (20:27)
[2020-03-22] MEDS: ATORVASTATIN 40 MG TAB PO SCH (20:27)
[2020-03-22] MEDS: INSULIN DETEMIR (LEVEMIR) 100 UNIT/ML SYR SQ SCH (20:28)
[2020-03-22] MEDS: MONTELUKAST 10 MG TAB PO SCH (20:28)
--- NOTE | 2020-03-22 23:47 | PN ---
PROGRESS NOTE A 54-year-old white female who discussed the case with [place] doctor who is going to hopefully take the case for a surgical operation for a mitral valve abscess, but until bed is available she will just stay on IV antibiotics here. She denies any chest pain, shortness of breath. Blood pressure is 185/86, heart rate 82. CARDIOVASCULAR: S1, S2. LUNGS: Clear. GI: Soft. HEMATOLOGY: Negative Homans. White count 3.1, hemoglobin 7, platelets 74. Blood cultures show no growth. ASSESSMENT: 1. Mitral valve abscess. 2. End-stage renal disease. 3. Insulin-dependent diabetes mellitus. 4. Methicillin-resistant Staphylococcus aureus bacteremia. 5. History of mitral valve endocarditis. 6. Pericardial effusion. 7. Hypertension. Try to get transferred down to the [facility] for surgery. Otherwise, we will continue with IV antibiotics at this time. Await for transfer to [facility] cardiac surgeon. MMODL / IJN: [id number] /
[2020-03-23] MEDS: diazePAM 5 MG TAB PO PRN (01:22)
[2020-03-23 06:58] LABS: Glucose,Whole Blood 278 mg/dL (75-99)
[2020-03-23] MEDS: LABETALOL 200 MG TAB PO SCH ×2 (07:40→20:53)
[2020-03-23] MEDS: ASPIRIN 81 MG PO SCH (07:40)
[2020-03-23] MEDS: DOCUSATE 100 MG CAP PO SCH (07:40)
[2020-03-23] MEDS: FUROSEMIDE 80 MG TAB PO SCH ×2 (07:40→20:52)
[2020-03-23] MEDS: ASCORBIC ACID 500 MG TAB PO SCH (07:41)
[2020-03-23] MEDS: PANTOPRAZOLE 40 MG TABLET PO SCH ×2 (07:41→20:53)
[2020-03-23] MEDS: hydrALAZINE HCL 50 MG TAB PO SCH ×3 (07:41→20:53)
[2020-03-23] MEDS: GABAPENTIN 100 MG CAP PO SCH ×3 (07:41→20:53)
[2020-03-23] MEDS: SEVELAMER 800 MG TAB PO SCH ×3 (07:41→16:45)
[2020-03-23] MEDS: cloNIDine HCL 0.1 MG TAB PO SCH ×3 (07:41→20:52)
[2020-03-23] MEDS: SODIUM POLYSTYRENE SULFONATE 15 GM/60 ML BOTTLE PO SCH (07:45)
[2020-03-23] MEDS: KETOTIFEN 0.025% OPHTH DROPS 5 ML BTL BOTH EYES SCH ×2 (07:46→20:53)
[2020-03-23] MEDS: INSULIN ASPART (NovoLOG) 100 UNIT/ML VIAL SQ SCH ×4 (07:48→20:44)
[2020-03-23] MEDS: ALBUTEROL HFA INHALER INHALATION PRN ×3 (10:57→20:46)
[2020-03-23 11:14] LABS: Anisocytosis Slight; HCT 21.1 % (34.0-46.0); HGB 7.1 gm/dL (11.4-16.0); Hypochromasia Slight; MCH 32.4 pg (25.0-35.0); MCHC 33.7 g/dL (31.0-37.0); MCV 96.2 fL (80.0-100.0); Macrocytosis Slight; Mean Platelet Volume 8.5; Platelet Count 113 k/uL (150-450); RBC 2.19 m/uL (3.80-5.40); WBC 2.8 k/uL (3.8-10.6)
[2020-03-23 11:24] LABS: Glucose,Whole Blood 232 mg/dL (75-99)
--- NOTE | 2020-03-23 12:40 | PN ---
PROGRESS NOTE Patient is seen for followup for end-stage renal disease. The patient is awaiting transfer to tertiary care facility for evaluation of mitral valve vegetation and abscess formation. She is maintained on hemodialysis on a Thursday, , Thursday schedule. The patient was dialyzed yesterday. She tolerated her treatment well. PHYSICAL EXAMINATION: On examination today, blood pressure was elevated 177/75, heart rate 72 per minute. She is afebrile. Examination of the heart S1, S2. Examination of the lungs, bilateral breath sounds are heard. Abdomen is soft, nontender. Examination lower extremities shows edema 1+ bilaterally. THEORETICAL PHYSICS TEACHER exam is grossly intact. LABS: Hemoglobin 7.1 g/dL. BMP is not available from last couple of days. Potassium was 4.4 on 03/20/2020. ASSESSMENT: 1. End-stage renal disease, on hemodialysis on a Thursday, , Thursday schedule. The patient will be dialyzed tomorrow. 2. Hypertension uncontrolled. I will add Coreg. The patient is maintained on clonidine hydralazine and labetalol. We can add PRABHA inhibitors as well. I do not see it on her allergy list. 3. MRSA bacteremia with mitral valve endocarditis and vegetation, possible abscess formation, being transferred for further surgical evaluation to a tertiary care hospital. PLAN: Continue antibiotics. Hemodialysis in a.m. Add lisinopril for blood pressure. MMODL / IJN: [id number] /
--- NOTE | 2020-03-23 13:12 | P.PN ---
Subjective Progress Note Date: 03/23/20 HISTORY OF PRESENT ILLNESS: Patient examined this morning at the bedside. She states she is comfortable this morning. She denies chest pain or pressure. She denies shortness of breath. She remains on antibiotics. Vital signs stable. PHYSICAL EXAM: VITAL SIGNS: Reviewed. GENERAL: Well-developed in no acute distress. NECK: Supple. No JVD or thyromegaly LUNGS: Respirations even and unlabored. Lungs essentially clear to auscultation bilaterally. HEART: Regular rate and rhythm. S1 and S2 heard. Systolic murmur noted. EXTREMITIES: Normal range of motion. No clubbing or cyanosis. Peripheral pulses intact. 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 Signing provider agrees with the documented findings, assessment, and plan of care. Objective - Vital Signs Vital signs: Vital Signs Temp 98.7 F 03/23/20 00:40 Pulse 72 03/23/20 00:40 Resp 20 03/23/20 00:40 BP 177/75 03/23/20 00:40 Pulse Ox 96 03/23/20 00:40 Intake & Output 03/22/20 03/23/20 03/23/20 18:59 06:59 18:59 Intake Total 480 300 Output Total 2500 Balance -2019 300 Intake: Oral 480 300 Output: Hemodialysis 2500 Other: Voiding Method Toilet # Voids 1 1 - Labs CBC & Chem 7: 03/23/20 05:26 03/22/20 05:46 Labs: Abnormal Lab Results - Last 24 Hours (Table) 03/22/20 03/22/20 03/23/20 Range/Units 16:38 20:06 05:26 WBC 2.8 L (3.8-10.6) k/uL RBC 2.19 L (3.80-5.40) m/uL Hgb 7.1 L (11.4-16.0) gm/dL Hct 21.1 L (34.0-46.0) % RDW 17.0 H (11.5-15.5) % Plt Count 113 L D (150-450) k/uL POC Glucose (mg/dL) 168 H 125 H (75-99) mg/dL 03/23/20 03/23/20 Range/Units 06:57 11:23 WBC (3.8-10.6) k/uL RBC (3.80-5.40) m/uL Hgb (11.4-16.0) gm/dL Hct (34.0-46.0) % RDW (11.5-15.5) % Plt Count (150-450) k/uL POC Glucose (mg/dL) 278 H 232 H (75-99) mg/dL Microbiology - Last 24 Hours (Table) 03/20/20 05:31 Blood Culture - Preliminary Blood No Growth after 72 hours 03/19/20 05:42 Blood Culture - Preliminary Blood No Growth after 96 hours
[2020-03-23] MEDS: lisinopriL 10 MG TAB PO SCH (13:59)
[2020-03-23 14:46] LABS: Band Neutrophils % 1 %; Lymphocytes # (M) 0.03 k/uL (1.0-4.8); Monocytes # (M) 0.17 k/uL (0-1.0); Neutrophils % (M) 92 %; Nucleated Red Blood Cells 0 /100 WBC (0-0); Total Cells Counted 100
[2020-03-23 14:48] LABS: Polychromasia Present
[2020-03-23 16:16] LABS: Glucose,Whole Blood 159 mg/dL (75-99)
--- NOTE | 2020-03-23 17:46 | PN ---
PROGRESS NOTE DATE OF SERVICE: 03/23/2020 REASON FOR FOLLOWUP: MRSA bacteremia and mitral valve endocarditis. INTERVAL HISTORY: Patient is currently afebrile. The patient is breathing comfortably. Did have some shortness of breath last night, but improved this morning. No nausea, vomiting. No abdominal pain. No diarrhea. PHYSICAL EXAMINATION: Blood pressure 127/75 with a pulse of 72. Temperature 97.7. She is 97% on room air. General description: The patient is a middle-aged female up in the in no distress. Respiratory system: Unlabored breathing, clear to auscultation anteriorly. Heart S1, S2. Regular rate. ABDOMEN: Soft, no tenderness. LABORATORY STUDIES: Hemoglobin 7.1, white count is 2.8. Blood culture repeat has been negative so far. DIAGNOSTIC IMPRESSION AND PLAN: Patient with MRSA bacteremia secondary to mitral valve endocarditis in this patient currently covered with vancomycin. Waiting for transfer to the [facility] for surgery. Continue supportive care. MMODL / IJN: [id number] /
[2020-03-23 20:13] LABS: Glucose,Whole Blood 143 mg/dL (75-99)
[2020-03-23] MEDS: INSULIN DETEMIR (LEVEMIR) 100 UNIT/ML SYR SQ SCH (20:43)
[2020-03-23] MEDS: CYCLOBENZAPRINE 5 MG TAB PO SCH (20:52)
[2020-03-23] MEDS: ATORVASTATIN 40 MG TAB PO SCH (20:53)
[2020-03-23] MEDS: MONTELUKAST 10 MG TAB PO SCH (20:53)
[2020-03-23] MEDS: HYDROcodone/APAP 7.5-325MG 1 EACH TAB PO PRN (20:57)
[2020-03-24 06:59] LABS: Glucose,Whole Blood 197 mg/dL (75-99)
--- NOTE | 2020-03-24 08:21 | P.PN ---
Subjective Progress Note Date: 03/24/20 Principal diagnosis: This is a 54-year-old female known to us with ESRD, diabetes on dialysis currently on Thursday schedule. Is also known with diabetes. She was admitted with fever found have MR SA bacteremia and mitral valve regurgitation. She is had similar bacteremia on 12/02/2019, 01/30/2020, 03/17/2020. In the interim she has had negative blood cultures. She is scheduled to be transferred to [facility] for possible valve surgery She denies any fever chills she is comfortable no nausea vomiting good appetite bowel movements are unremarkable no dizziness no headache. Recently she had a clotted fistula on the left upper arm and a permacath was placed Objective - Vital Signs Vital signs: Vital Signs Temp 97.8 F 03/24/20 00:44 Pulse 68 03/24/20 00:44 Resp 20 03/24/20 00:44 BP 172/82 03/24/20 00:44 Pulse Ox 96 03/24/20 00:44 Intake & Output 03/23/20 03/24/20 03/24/20 18:59 06:59 18:59 Other: # Voids 3 3 On examination she is awake alert oriented comfortable She looks pale HEENT exam no JVP neck supple no facial asymmetry Lungs are clear to auscultation good air entry bilaterally Heart sounds are unremarkable in spite of the mitral valve regurgitation Abdomen is somewhat bloated and distended. His previous computed tomography scan dated 01/20/2020 she does show ascites Extremity exam reveals moderate edema Neurologically awake alert oriented - Labs CBC & Chem 7: 03/23/20 05:26 03/22/20 05:46 Labs: Abnormal Lab Results - Last 24 Hours (Table) 03/23/20 03/23/20 03/23/20 Range/Units 05:26 11:23 16:16 WBC 2.8 L (3.8-10.6) k/uL RBC 2.19 L (3.80-5.40) m/uL Hgb 7.1 L (11.4-16.0) gm/dL Hct 21.1 L (34.0-46.0) % RDW 17.0 H (11.5-15.5) % Plt Count 113 L D (150-450) k/uL Lymphocytes # (Manual) 0.03 L (1.0-4.8) k/uL POC Glucose (mg/dL) 232 H 159 H (75-99) mg/dL 03/23/20 03/24/20 Range/Units 20:13 06:57 WBC (3.8-10.6) k/uL RBC (3.80-5.40) m/uL Hgb (11.4-16.0) gm/dL Hct (34.0-46.0) % RDW (11.5-15.5) % Plt Count (150-450) k/uL Lymphocytes # (Manual) (1.0-4.8) k/uL POC Glucose (mg/dL) 143 H 197 H (75-99) mg/dL Microbiology - Last 24 Hours (Table) 03/20/20 05:31 Blood Culture - Preliminary Blood No Growth after 72 hours 03/19/20 05:42 Blood Culture - Preliminary Blood No Growth after 96 hours Assessment and Plan Plan: Impression 1. ESRD on dialysis Thursday with a permacath on the right chest 2. MRSA bacteremia persistent since November with intermittent and negative blood cultures. The last blood culture is positive dated 03/17/2020 and so far the blood culture is negative on 03/19/2020. Mitral valve vegetation and possible abscess 3. Ascites cause not clear. Possibly secondary to right heart failure 4. Diabetes mellitus 5. Severe tricuspid regurg and pulmonary hypertension. 6. Hypertension and edema 7. Anemia of chronic kidney disease hemoglobin 7.1, and saturations 25% dated 03/19/2020 Recommendation 1. Will dialyze today, we'll attempt to take off 4 L and see if her pressure will improve. The workup for ascites need to be performed if it has not been done in the past
[2020-03-24 08:29] VITALS: BMI 30.1
[2020-03-24] MEDS: FUROSEMIDE 80 MG TAB PO SCH ×2 (08:36→20:31)
[2020-03-24] MEDS: ASPIRIN 81 MG PO SCH (08:37)
[2020-03-24] MEDS: SEVELAMER 800 MG TAB PO SCH ×3 (08:37→17:21)
[2020-03-24] MEDS: ASCORBIC ACID 500 MG TAB PO SCH (08:37)
[2020-03-24] MEDS: PANTOPRAZOLE 40 MG TABLET PO SCH ×2 (08:37→20:32)
[2020-03-24] MEDS: INSULIN ASPART (NovoLOG) 100 UNIT/ML VIAL SQ SCH ×3 (08:37→17:05)
[2020-03-24] MEDS: GABAPENTIN 100 MG CAP PO SCH ×3 (08:37→20:31)
[2020-03-24] MEDS: DOCUSATE 100 MG CAP PO SCH (08:37)
[2020-03-24] MEDS: cloNIDine HCL 0.1 MG TAB PO SCH ×3 (08:38→20:31)
[2020-03-24] MEDS: hydrALAZINE HCL 50 MG TAB PO SCH ×4 (08:38→20:31)
[2020-03-24] MEDS: LABETALOL 200 MG TAB PO SCH ×2 (08:39→20:32)
[2020-03-24] MEDS: KETOTIFEN 0.025% OPHTH DROPS 5 ML BTL BOTH EYES SCH ×2 (08:39→20:32)
[2020-03-24] MEDS: lisinopriL 10 MG TAB PO SCH (08:39)
[2020-03-24] MEDS: HYDROcodone/APAP 7.5-325MG 1 EACH TAB PO PRN ×2 (08:47→19:09)
[2020-03-24] MEDS: ALBUTEROL HFA INHALER INHALATION PRN (09:22)
[2020-03-24] MEDS: TIOTROPIUM 18 MCG/PUFF INHALER INHALATION PRN (09:22)
--- NOTE | 2020-03-24 09:52 | P.PN ---
Subjective Progress Note Date: 03/24/20 Principal diagnosis: Infective endocarditis This is a pleasant 54-year-old female patient with end-stage renal disease on dialysis as well as diabetes and hypertension and dyslipidemia who was diagnosed recently was infective endocarditis but she was admitted to the hospital was fever. Repeated TK revealed evidence of endocarditis with mitral annulus abscess and also aortic root abscess. Infectious disease is on the case. Nephrology service is on the case as well. The patient was seen today. She is overall doing good. She is a stable hemodynamic the beach she stated "I feel better". No fever or chills. She is in process of being transferred to [facility] for possible mitral and aortic valve replacement and possibly also aortic root replacement. She is still here because there is no. Available at this point. Objective - Vital Signs Vital signs: Vital Signs Temp 98.2 F 03/24/20 09:22 Pulse 78 03/24/20 09:22 Resp 16 03/24/20 09:22 BP 193/88 03/24/20 09:22 Pulse Ox 96 03/24/20 09:22 Intake & Output 03/23/20 03/24/20 03/24/20 18:59 06:59 18:59 Weight 77.111 kg Other: # Voids 3 3 - Constitutional General appearance: Present: no acute distress - Respiratory Respiratory: bilateral: CTA - Cardiovascular Rhythm: regular Heart sounds: normal: S1, S2 Abnormal Heart Sounds: Present: systolic murmur - Labs CBC & Chem 7: 03/23/20 05:26 03/22/20 05:46 Labs: Abnormal Lab Results - Last 24 Hours (Table) 03/23/20 03/23/20 03/23/20 Range/Units 05:26 11:23 16:16 WBC 2.8 L (3.8-10.6) k/uL RBC 2.19 L (3.80-5.40) m/uL Hgb 7.1 L (11.4-16.0) gm/dL Hct 21.1 L (34.0-46.0) % RDW 17.0 H (11.5-15.5) % Plt Count 113 L D (150-450) k/uL Lymphocytes # (Manual) 0.03 L (1.0-4.8) k/uL POC Glucose (mg/dL) 232 H 159 H (75-99) mg/dL 11/13/20 11/14/20 Range/Units 20:13 06:57 WBC (3.8-10.6) k/uL RBC (3.80-5.40) m/uL Hgb (11.4-16.0) gm/dL Hct (34.0-46.0) % RDW (11.5-15.5) % Plt Count (150-450) k/uL Lymphocytes # (Manual) (1.0-4.8) k/uL POC Glucose (mg/dL) 143 H 197 H (75-99) mg/dL Microbiology - Last 24 Hours (Table) 03/20/20 05:31 Blood Culture - Preliminary Blood No Growth after 96 hours 03/19/20 05:42 Blood Culture - Preliminary Blood No Growth after 120 hours Assessment and Plan Assessment: Assessment #1 MRSA endocarditis #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
[2020-03-24 10:36] LABS: Anisocytosis Slight; Basophils % (A) 1 %; Eosinophils # (A) 0.1 k/uL (0-0.7); Eosinophils % (A) 4 %; HCT 21.1 % (34.0-46.0); HGB 7.1 gm/dL (11.4-16.0); Hypochromasia Slight; Lymphocytes # (A) 0.3 k/uL (1.0-4.8); Lymphocytes % (A) 10 %; MCH 31.9 pg (25.0-35.0); MCHC 33.4 g/dL (31.0-37.0); MCV 95.5 fL (80.0-100.0); Macrocytosis Slight; Mean Platelet Volume 8.5; Monocytes # (A) 0.2 k/uL (0-1.0); Monocytes % (A) 6 %; Neutrophils # (A) 2.2 k/uL (1.3-7.7); Neutrophils % (A) 78 %; Platelet Count 120 k/uL (150-450); RBC 2.21 m/uL (3.80-5.40); RDW 17.6 % (11.5-15.5); WBC 2.8 k/uL (3.8-10.6)
[2020-03-24 10:47] LABS: ALT 16 U/L (4-34); AST 16 U/L (14-36); African American GFR (CKD) 8 (>60 ml/min/1.73 sqM); Albumin 3.5 g/dL (3.5-5.0); Albumin/Globulin Ratio 1.6; Alkaline Phosphatase 131 U/L (38-126); Anion Gap 14 mmol/L; Blood Urea Nitrogen 38 mg/dL (7-17); Calcium 9.2 mg/dL (8.4-10.2); Carbon Dioxide 21 mmol/L (22-30); Chloride 99 mmol/L (98-107); Globulin 2.2 g/dL; Glucose 165 mg/dL (74-99); Non-African American GFR(CKD) 7 (>60 ml/min/1.73 sqM); Potassium 4.9 mmol/L (3.5-5.1); Sodium 134 mmol/L (137-145); Total Bilirubin 0.8 mg/dL (0.2-1.3); Total Protein 5.7 g/dL (6.3-8.2)
[2020-03-24 11:50] LABS: Glucose,Whole Blood 251 mg/dL (75-99)
[2020-03-24 15:14] VITALS: TEMP 97.9
[2020-03-24 15:50] VITALS: BP 171/79; PULSE 76; RESP 18
[2020-03-24 16:56] LABS: Glucose,Whole Blood 72 mg/dL (75-99)
[2020-03-24] MEDS: MONTELUKAST 10 MG TAB PO SCH (20:31)
[2020-03-24] MEDS: CYCLOBENZAPRINE 5 MG TAB PO SCH (20:31)
[2020-03-24] MEDS: ATORVASTATIN 40 MG TAB PO SCH (20:32)
--- NOTE | 2020-03-27 00:19 | CDI ---
Documentation Clarification Form Date: 03/27/2020 From: Soham Romero Phone: If you have a question about this query, please contact Oliva Kurtz, [place] at [phone] between 8am and 5pm. Admit Date: 03/17/2020 Discharge Date: 03/24/2020 Patient Name: Sara Desouza Visit Number: [id number] ATTENTION: The Clinical Documentation Specialists (CDI) and [facility] Coding Staff appreciate your assistance in clarifying documentation. Please respond to the clarification below the line at the bottom and electronically sign. The CDI & [facility] Coding staff will review the response and follow-up if needed. Please note: Queries are made part of the Legal Health Record. If you have any questions, please contact the author of this message via ITS. Dear David Morejon MD., The patient presented with fever, weakness found to have Infective endocarditis and mitral valve abscess. History/Risk Factors:Mitral wall endocarditis, ESRD on HD, Heart Failure, Diabetes Mellitus, Hypertension Liver disease Clinical Indicators: 54-year-old female who present on 03/17 with complaints of fever.History on mitral wall endocarditis was discharged home on 02/09/2020 with a plan for 6-8 weeks of IV Vancomycin, which has not been completed.CT of chest and abdomen with evidence of moderate pericardial effusion. MRSA bacteremia with mitral valve endocarditis and vegetation, possible abscess formation, being transferred for further surgical evaluation to a tertiary care ESRD on dialysis Thursday with a permacath on the right chest patient now with evidence of gram-positive bacteremia source possible endocarditis versus related to her permacatheter In your professional opinion, can you please clarify Infective endocarditis from Permacath? YES NO Other, please specify Unable to determine MTDD
--- NOTE | 2020-03-28 12:13 | CONS ---
CONSULTATION DATE OF CONSULTATION: 03/21/20 I have seen, examined, and agree with the midlevel's findings. MMODL / IJN: [id number] / Job#: 2
--- NOTE | 2020-04-06 12:16 | PN ---
PROGRESS NOTE ADDENDUM: Infective endocarditis. Unclear if it is from the PermCath or not. MMODL / IJN: [id number] /
--- NOTE | 2020-04-06 12:43 | PN ---
PROGRESS NOTE DIAGNOSIS: Sepsis secondary to mitral valve endocarditis. MMODL / IJN: [id number] /
--- NOTE | 2020-04-06 13:22 | DS ---
DISCHARGE SUMMARY ADDENDUM: Acute on chronic diastolic heart failure. MMODL / IJN: [id number] /
== END 2020-03-24 20:40 | disposition short-term general hospital (02) | DRG 871 ==
LOC: EC 16:19 → 4SSUR 18:59
PROVIDERS: ADMIT Family Medicine; ATTEND Family Medicine
PROC: 30233N1 Transfusion of Nonautologous Red Blood Cells into Peripheral Vein, Percutaneous Approach (ICD-10-PCS; principal; 2020-03-18)
PROC: 5A1D70Z Performance of Urinary Filtration, Intermittent, Less than 6 Hours Per Day (ICD-10-PCS; principal; 2020-03-18)
DX: A41.02 Sepsis due to Methicillin resistant Staphylococcus aureus (principal); I33.0 Acute and subacute infective endocarditis; N18.6 End stage renal disease; I50.33 Acute on chronic diastolic (congestive) heart failure; D61.818 Other pancytopenia; E27.40 Unspecified adrenocortical insufficiency; I31.3 Pericardial effusion (noninflammatory); K86.1 Other chronic pancreatitis; I13.2 Hypertensive heart and chronic kidney disease with heart failure and with stage 5 chronic kidney disease, or end stage renal disease; Z20.828 Contact with and (suspected) exposure to other viral communicable diseases; I45.10 Unspecified right bundle-branch block; I27.20 Pulmonary hypertension, unspecified; E78.1 Pure hyperglyceridemia; E78.5 Hyperlipidemia, unspecified; H35.63 Retinal hemorrhage, bilateral; I08.1 Rheumatic disorders of both mitral and tricuspid valves; D46.9 Myelodysplastic syndrome, unspecified; D63.1 Anemia in chronic kidney disease; G51.0 Bell's palsy; E11.22 Type 2 diabetes mellitus with diabetic chronic kidney disease; Z99.2 Dependence on renal dialysis; Z87.892 Personal history of anaphylaxis; Z86.79 Personal history of other diseases of the circulatory system; Z86.14 Personal history of Methicillin resistant Staphylococcus aureus infection; Z82.49 Family history of ischemic heart disease and other diseases of the circulatory system; Z80.9 Family history of malignant neoplasm, unspecified; Z79.899 Other long term (current) drug therapy; Z79.82 Long term (current) use of aspirin; Z79.4 Long term (current) use of insulin; Z79.2 Long term (current) use of antibiotics; Z88.1 Allergy status to other antibiotic agents; Z91.041 Radiographic dye allergy status; Z87.01 Personal history of pneumonia (recurrent); Z98.890 Other specified postprocedural states; Z87.440 Personal history of urinary (tract) infections; Z81.1 Family history of alcohol abuse and dependence
CPT/HCPCS: 36415; 71045; 71046; 71250; 74150; 80053; 80202; 81001; 82565; 82607; 82728; 83540; 83550; 83605; 83615; 83690; 83735; 83883; 83921; 84145; 84165; 85025; 85045; 85379; 85610; 85652; 85730; 86140; 86334; 86706; 86850; 86900; 86901; 86920; 87040; 87077; 87186; 87340; 87635; 90935; 93005; 93306; 93312; 93325; 94640; 96365; 96366; 96374; 96375; 99283; 99285

== ENCOUNTER 2020-05-13 07:06 | Observation (INO) | payer OTHER ==
[2020-05-13] MEDS ORDERED: FUROSEMIDE 10 MG/ML 10 ML VIAL IV STA (07:17)
--- NOTE | 2020-05-13 07:25 | ED ---
General Adult HPI - General Chief complaint: Arrhythmia/Palpitations Stated complaint: Tachycardia Time Seen by Provider: 05/13/20 07:10 Source: patient, EMS, RN notes reviewed, old records reviewed Mode of arrival: EMS Limitations: no limitations - History of Present Illness Initial comments: This is a 54-year-old female who presents emergency Department complaining of being tachycardic. Patient states he will she went to dialysis today and they wouldn't dialyze her because her heart rate was fast. Patient states she's not noted any new symptoms. Patient denies any chest pain or palpitations. Patient denies any difficulty breathing shortness of breath. Patient denies any recent fever chills or cough. Patient states the only thing she has noticed some swelling in her legs which she states is slightly improved but it is been swollen since she left the hospital in April. Patient denies any abdominal pain patient denies nausea and vomiting. Patient can produce urine. - Related Data Home Medications Medication Instructions Recorded Confirmed cloNIDine HCL 0.3 mg PO TID 12/16/16 05/13/20 Prochlorperazine [Compazine] 5 mg PO BID PRN 10/26/17 05/13/20 INSULIN LISPRO (humaLOG) [humaLOG] 10 unit SQ AC-TID 07/12/18 05/13/20 Omeprazole 20 mg PO BID 11/01/18 05/13/20 hydrALAZINE HCL [Apresoline] 100 mg PO TID 12/14/18 05/13/20 HYDROcodone/APAP 7.5-325MG [[place] 1 tab PO TID PRN 11/08/19 05/13/20 7.5-325] Montelukast [Singulair] 10 mg PO HS 11/08/19 05/13/20 Insulin Glargine,Hum.rec.anlog 60 unit SQ HS 12/02/19 05/13/20 [Basaglar Kwikpen U-100] Albuterol Sulfate [Proair Hfa] 2 puff INHALATION RT-Q6H PRN 01/28/20 05/13/20 Furosemide [Lasix] 80 mg PO BID 01/28/20 05/13/20 INSULIN LISPRO (HumaLOG) [humaLOG] See Protocol SQ ACHS 03/17/20 05/13/20 Sildenafil [Revatio] 20 mg PO TID 04/20/20 05/13/20 Benzonatate [Tessalon Perles] 100 mg PO TID PRN 05/13/20 05/13/20 Cyclobenzaprine [Flexeril] 5 mg PO HS 05/13/20 05/13/20 Promethazine 6.25MG/5Ml [Phenergan 5 mg PO Q6H PRN 05/13/20 05/13/20 Syrup] traMADol HCL [Ultram] 50 mg PO Q12H PRN 05/13/20 05/13/20 Allergies Allergy/AdvReac Type Severity Reaction Status Date / Time ciprofloxacin [From Cipro] AdvReac AFFECTED Verified 05/13/20 08:51 EYESIGHT ciprofloxacin HCl AdvReac AFFECTED Verified 05/13/20 08:51 [From Cipro] EYESIGHT Iodinated Contrast Media AdvReac RENAL Verified 05/13/20 08:51 FAILURE Review of Systems ROS Statement: Those systems with pertinent positive or pertinent negative responses have been documented in the HPI. ROS Other: All systems not noted in ROS Statement are negative. 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 hemodialysis for acute kidney inju ry 2 months in 2009 after pancreatic OR, 11/2015 diagnosed w/ chronic kidney disease-hemodialysis -last hemodialysis 06/02/19, IDDM type II, past DKA, UTI, chronic anemia, frequent body cramping, occasional low back pain, carter's palsy x2, past L leg fx, possible liver disease-recent liver bx-results unknown per pt. History of Any Multi-Drug Resistant Organisms: MRSA Date of last positivie culture/infection: 03/17/20 MDRO Source:: Blood Past Surgical History: Cardiac Valve Replacement, Orthopedic Surgery, Uterine Ablation Additional Past Surgical History / Comment(s): Recent liver biopsy done at [place] but pt states they have never contacted her with the results, 08/26/17 colonoscopy with polypectomy/bx, pancreatic resection at [facility] 2009, bone marrow biopsies X2-last one 05/19/16,. dialysis chest port x 2 with removals, Left arm shunt placement for dialysis - December 2015 and a revision done with shunt. Left forearm Vein Revision - October 2019 Past Anesthesia/Blood Transfusion Reactions: No Reported Reaction Additional Past Anesthesia/Blood Transfusion Reaction / Comment(s): Pt has received blood transfusions without reaction. Past Psychological History: No Psychological Hx Reported Smoking Status: Never smoker Past Alcohol Use History: None Reported Past Drug Use History: None Reported - Past Family History Brother(s) Family Medical History: No Reported History Mother Family Medical History: Cancer Additional Family Medical History / Comment(s): . Father Family Medical History: Hypertension Additional Family Medical History / Comment(s): alcoholism General Exam - General Exam Comments Initial Comments: GENERAL: Patient is well-developed and well-nourished. Patient is nontoxic and well- hydrated and is in no acute distress. ENT: Neck is soft and supple. No significant lymphadenopathy is noted. Oropharynx is clear. Moist mucous membranes. Neck has full range of motion without eliciting any pain. EYES: The sclera were anicteric and conjunctiva were pink and moist. Extraocular movements were intact and pupils were equal round and reactive to light. Eyelids were unremarkable. PULMONARY: Unlabored respirations. Good breath sounds bilaterally. No audible rales rhonchi or wheezing was noted. CARDIOVASCULAR: Patient is tachycardic at 120 beats a minute. ABDOMEN: Soft and nontender with normal bowel sounds. SKIN: Skin is clear with no lesions or rashes and otherwise unremarkable. NEUROLOGIC: Patient is alert and oriented x3. Cranial nerves II through XII are grossly intact. Motor and sensory are also intact. Normal speech, volume and content. Symmetrical smile. MUSCULOSKELETAL: Normal extremities with adequate strength and full range of motion. 2+ edema LYMPHATICS: No significant lymphadenopathy is noted PSYCHIATRIC: Normal psychiatric evaluation. Limitations: no limitations Course Vital Signs 05/13/20 05/13/20 07:12 08:17 Temperature 98.9 F Pulse Rate 120 H 116 H Respiratory 18 18 Rate Blood Pressure 166/99 141/89 O2 Sat by Pulse 100 100 Oximetry Medical Decision Making - Medical Decision Making EKG shows a junctional rhythm at 120 bpm QRS is 90 QT interval 336 QTC is 474. EKG shows no ST segment elevation or depression Chest x-ray shows congestive heart failure.. Patient received Lasix on the emergency department. Patient's heart rate continued between 115 and 120. Patient was afebrile even with a rectal temperature. I spoke with Dr. Bragg he agreed to admit the patient admitted the patient wrote admitting orders. - Lab Data Result diagrams: 05/13/20 07:46 05/13/20 07:46 Lab Results 05/13/20 05/13/20 05/13/20 Range/Units 07:46 07:46 07:46 WBC 4.9 (3.8-10.6) k/uL RBC 2.77 L (3.80-5.40) m/uL Hgb 8.4 L (11.4-16.0) gm/dL Hct 25.8 L (34.0-46.0) % MCV 93.1 (80.0-100.0) fL MCH 30.2 (25.0-35.0) pg MCHC 32.4 (31.0-37.0) g/dL RDW 18.2 H (11.5-15.5) % Plt Count 173 (150-450) k/uL MPV 7.4 Neutrophils % 84 % Lymphocytes % 6 % Monocytes % 7 % Eosinophils % 1 % Basophils % 0 % Neutrophils # 4.1 (1.3-7.7) k/uL Lymphocytes # 0.3 L (1.0-4.8) k/uL Monocytes # 0.3 (0-1.0) k/uL Eosinophils # 0.0 (0-0.7) k/uL Basophils # 0.0 (0-0.2) k/uL Poikilocytosis Slight Anisocytosis Slight PT 11.7 (9.0-12.0) sec INR 1.2 H (<1.2) APTT 24.8 (22.0-30.0) sec Sodium 131 L (137-145) mmol/L Potassium 4.6 (3.5-5.1) mmol/L Chloride 93 L (98-107) mmol/L Carbon Dioxide 27 (22-30) mmol/L Anion Gap 11 mmol/L BUN 56 H (7-17) mg/dL Creatinine 5.92 H (0.52-1.04) mg/dL Est GFR (CKD-EPI)AfAm 9 (>60 ml/min/1.73 sqM) Est GFR (CKD-EPI)NonAf 8 (>60 ml/min/1.73 sqM) Glucose 95 (74-99) mg/dL Calcium 9.1 (8.4-10.2) mg/dL Magnesium 1.4 L (1.6-2.3) mg/dL Total Bilirubin 0.9 (0.2-1.3) mg/dL AST 18 (14-36) U/L ALT 10 (4-34) U/L Alkaline Phosphatase 129 H (38-126) U/L Troponin I (0.000-0.034) ng/mL Total Protein 5.7 L (6.3-8.2) g/dL Albumin 3.4 L (3.5-5.0) g/dL Urine Color Urine Appearance (Clear) Urine pH (5.0-8.0) Ur Specific [place] (1.001-1.035) Urine Protein (Negative) Urine Glucose (UA) (Negative) Urine Ketones (Negative) Urine Blood (Negative) Urine Nitrite (Negative) Urine Bilirubin (Negative) Urine Urobilinogen (<2.0) mg/dL Ur Leukocyte Esterase (Negative) Urine RBC (0-5) /hpf Urine WBC (0-5) /hpf Ur Squamous Epith Cells (0-4) /hpf Urine Bacteria (None) /hpf Urine Mucus (None) /hpf 05/13/20 05/13/20 Range/Units 07:46 08:15 WBC (3.8-10.6) k/uL RBC (3.80-5.40) m/uL Hgb (11.4-16.0) gm/dL Hct (34.0-46.0) % MCV (80.0-100.0) fL MCH (25.0-35.0) pg MCHC (31.0-37.0) g/dL RDW (11.5-15.5) % Plt Count (150-450) k/uL MPV Neutrophils % % Lymphocytes % % Monocytes % % Eosinophils % % Basophils % % Neutrophils # (1.3-7.7) k/uL Lymphocytes # (1.0-4.8) k/uL Monocytes # (0-1.0) k/uL Eosinophils # (0-0.7) k/uL Basophils # (0-0.2) k/uL Poikilocytosis Anisocytosis PT (9.0-12.0) sec INR (<1.2) APTT (22.0-30.0) sec Sodium (137-145) mmol/L Potassium (3.5-5.1) mmol/L Chloride (98-107) mmol/L Carbon Dioxide (22-30) mmol/L Anion Gap mmol/L BUN (7-17) mg/dL Creatinine (0.52-1.04) mg/dL Est GFR (CKD-EPI)AfAm (>60 ml/min/1.73 sqM) Est GFR (CKD-EPI)NonAf (>60 ml/min/1.73 sqM) Glucose (74-99) mg/dL Calcium (8.4-10.2) mg/dL Magnesium (1.6-2.3) mg/dL Total Bilirubin (0.2-1.3) mg/dL AST (14-36) U/L ALT (4-34) U/L Alkaline Phosphatase (38-126) U/L Troponin I 0.035 H* (0.000-0.034) ng/mL Total Protein (6.3-8.2) g/dL Albumin (3.5-5.0) g/dL Urine Color Yellow Urine Appearance Cloudy H (Clear) Urine pH 8.5 H (5.0-8.0) Ur Specific [place] 1.009 (1.001-1.035) Urine Protein 2+ H (Negative) Urine Glucose (UA) Negative (Negative) Urine Ketones Negative (Negative) Urine Blood Negative (Negative) Urine Nitrite Negative (Negative) Urine Bilirubin Negative (Negative) Urine Urobilinogen <2.0 (<2.0) mg/dL Ur Leukocyte Esterase Small H (Negative) Urine RBC 1 (0-5) /hpf Urine WBC 6 H (0-5) /hpf Ur Squamous Epith Cells 27 H (0-4) /hpf Urine Bacteria Rare H (None) /hpf Urine Mucus Rare H (None) /hpf Critical Care Time Critical Care Time: Yes Total Critical Care Time: 35 Disposition Clinical Impression: Acute pulmonary edema, Junctional tachycardia Disposition: ADMITTED IP TO THIS [facility] Referrals: David Bragg MD [Primary Care Provider] - 1-2 days Time of Disposition: 09:32
[2020-05-13 08:05] LABS: Anisocytosis Slight; Basophils % (A) 0 %; Eosinophils % (A) 1 %; HCT 25.8 % (34.0-46.0); HGB 8.4 gm/dL (11.4-16.0); Lymphocytes # (A) 0.3 k/uL (1.0-4.8); Lymphocytes % (A) 6 %; MCH 30.2 pg (25.0-35.0); MCHC 32.4 g/dL (31.0-37.0); MCV 93.1 fL (80.0-100.0); Mean Platelet Volume 7.4; Monocytes # (A) 0.3 k/uL (0-1.0); Monocytes % (A) 7 %; Neutrophils # (A) 4.1 k/uL (1.3-7.7); Neutrophils % (A) 84 %; Platelet Count 173 k/uL (150-450); Poikilocytosis Slight; RBC 2.77 m/uL (3.80-5.40); RDW 18.2 % (11.5-15.5); WBC 4.9 k/uL (3.8-10.6)
[2020-05-13 08:09] LABS: INR 1.2 (<1.2); Partial Thromboplastin Time 24.8 sec (22.0-30.0); Prothrombin Time 11.7 sec (9.0-12.0)
[2020-05-13 08:13] LABS: Albumin 3.4 g/dL (3.5-5.0); Calcium 9.1 mg/dL (8.4-10.2); Magnesium 1.4 mg/dL (1.6-2.3); Potassium 4.6 mmol/L (3.5-5.1); Total Bilirubin 0.9 mg/dL (0.2-1.3); Total Protein 5.7 g/dL (6.3-8.2)
--- NOTE | 2020-05-13 08:19 | XR ---
EXAMINATION TYPE: XR chest 2V DATE OF EXAM: 05/13/2020 COMPARISON: Chest x-ray March 17, 2020 HISTORY: History of cardiac valve surgery with tachycardia arrhythmia and chest pain. TECHNIQUE: Frontal and lateral views of the chest are obtained. FINDINGS: Stable right internal jugular large-bore dialysis catheter. Persistent cardiomegaly with a therosclerotic aorta. Overlying metallic cardiac valve redemonstrated . Mild interstitial edema bilat erally. No pleural effusion or pneumothorax. The osseous structures are intact. There is left subclav john arterial stent graft redemonstrated. IMPRESSION: Cardiomegaly with mild interstitial edema. Correlate for CHF exacerbation.
[2020-05-13 08:30] LABS: Appearance,Urine Cloudy (Clear); Bacteria,Urine Rare /hpf; Bilirubin,Urine Negative (Negative); Blood,Urine Negative (Negative); Color,Urine Yellow; Glucose,Urine (UA) Negative (Negative); Ketones,Urine Negative (Negative); Leukocyte Esterase,Urine Small (Negative); Mucus,Urine Rare /hpf; Nitrite,Urine Negative (Negative); PH, Urine 8.5 (5.0-8.0); Protein,Urine 2+ (Negative); RBC,Urine 1 /hpf (0-5); Specific Gravity,Urine 1.009 (1.001-1.035); Squamous Epithelial Cell,Urine 27 /hpf (0-4); Urobilinogen,Urine <2.0 mg/dL (<2.0); WBC,Urine 6 /hpf (0-5)
[2020-05-13] MEDS ORDERED: PROCHLORPERAZINE 5 MG TAB PO PRN (10:58)
[2020-05-13 11:16] LABS: Glucose,Whole Blood 66 mg/dL (75-99)
[2020-05-13] MEDS: INSULIN ASPART (NovoLOG) 100 UNIT/ML VIAL SQ SCH ×2 (11:49→17:19)
[2020-05-13 11:51] LABS: Glucose,Whole Blood 92 mg/dL (75-99)
--- NOTE | 2020-05-13 12:28 | P.NPCON ---
History of Present Illness - Reason for Consult Consult date: 05/13/20 end stage renal disease - Chief Complaint Tachycardia - History of Present Illness This is a 54-year-old female known to us with ESRD on dialysis Thursday at the [facility] unit. She had significant tachycardia at 122 bpm in the dialysis center therefore was asked to go to the emergency room. This is because recently she has had this multiple cardiac problems with need for cardiac valve repair and replacement [facility] in March 2020 and was discharged home a month ago on 04/16/2020 approximately. She was supposed to get dialyzed this morning and when she became tachycardic predialysis the nurse called me 9 asked her to send her to the emergency room. Patient denies any fever chills nausea vomiting. She has gained supposedly 9 kg in between treatments She is known with diabetes, history of pancreatic resection in 2009 recent insertion of permacath on the right, after her axis on the left arm clotted Past Medical History Past Medical History: Blood Disorder, Heart Failure, Diabetes Mellitus, Dialysis, Hyperlipidemia, Hypertension, Liver Disease, Pneumonia, Renal Disease Additional Past Medical History / Comment(s): Bilateral cataracts, recently diagnosed with bilateral retinal hemorrhages, hypertriglyceridemia-induced acute pancreatitis, THEN necrotizing pancreatitis. hemodialysis for acute kidney injury 2 months in 2009 after pancreatic OR, 11/2015 diagnosed w/ chronic kidney disease-hemodialysis -last hemodialysis 06/02/19, IDDM type II, past DKA, UTI, chronic anemia, frequent body cramping, occasional low back pain, carter's palsy x2, past L leg fx, possible liver disease-recent liver bx-results unknown per pt. History of Any Multi-Drug Resistant Organisms: MRSA Date of last positivie culture/infection: 03/17/20 MDRO Source:: Blood Past Surgical History: Cardiac Valve Replacement, Orthopedic Surgery, Uterine Ablation Additional Past Surgical History / Comment(s): Recent liver biopsy done at [place] but pt states they have never contacted her with the results, 08/26/17 colonoscopy with polypectomy/bx, pancreatic resection at [facility] 2009, bone marrow biopsies X2-last one 05/19/16,. dialysis chest port x 2 with catrachito vals, Left arm shunt placement for dialysis - December 2015 and a revision done with shunt. Left forearm Vein Revision - October 2019 Past Anesthesia/Blood Transfusion Reactions: No Reported Reaction Additional Past Anesthesia/Blood Transfusion Reaction / Comment(s): Pt has received blood transfusions without reaction. Past Psychological History: No Psychological Hx Reported Smoking Status: Never smoker Past Alcohol Use History: None Reported Past Drug Use History: None Reported - Past Family History Brother(s) Family Medical History: No Reported History Mother Family Medical History: Cancer Additional Family Medical History / Comment(s): . Father Family Medical History: Hypertension Additional Family Medical History / Comment(s): alcoholism Medications and Allergies Home Medications Medication Instructions Recorded Confirmed Type cloNIDine HCL 0.3 mg PO TID 12/16/16 05/13/20 History Prochlorperazine [Compazine] 5 mg PO BID PRN 10/26/17 05/13/20 History INSULIN LISPRO (humaLOG) [humaLOG] 10 unit SQ AC-TID 07/12/18 05/13/20 History Omeprazole 20 mg PO BID 11/01/18 05/13/20 History hydrALAZINE HCL [Apresoline] 100 mg PO TID 12/14/18 05/13/20 History HYDROcodone/APAP 7.5-325MG [[place] 1 tab PO TID PRN 11/08/19 05/13/20 History 7.5-325] Montelukast [Singulair] 10 mg PO HS 11/08/19 05/13/20 History Insulin Glargine,Hum.rec.anlog 60 unit SQ HS 12/02/19 05/13/20 History [Basaglar Kwikpen U-100] Albuterol Sulfate [Proair Hfa] 2 puff INHALATION RT-Q6H PRN 01/28/20 05/13/20 History Furosemide [Lasix] 80 mg PO BID 01/28/20 05/13/20 History INSULIN LISPRO (HumaLOG) [humaLOG] See Protocol SQ ACHS 03/17/20 05/13/20 History Sildenafil [Revatio] 20 mg PO TID 04/20/20 05/13/20 History Benzonatate [Tessalon Perles] 100 mg PO TID PRN 05/13/20 05/13/20 History Cyclobenzaprine [Flexeril] 5 mg PO HS 05/13/20 05/13/20 History Promethazine 6.25MG/5Ml [Phenergan 5 mg PO Q6H PRN 05/13/20 05/13/20 History Syrup] traMADol HCL [Ultram] 50 mg PO Q12H PRN 05/13/20 05/13/20 History Allergies Allergy/AdvReac Type Severity Reaction Status Date / Time ciprofloxacin [From Cipro] AdvReac AFFECTED Verified 05/13/20 08:51 EYESIGHT ciprofloxacin HCl AdvReac AFFECTED Verified 05/13/20 08:51 [From Cipro] EYESIGHT Iodinated Contrast Media AdvReac RENAL Verified 05/13/20 08:51 FAILURE Physical Exam Vitals: Vital Signs Temp Pulse Pulse Resp BP BP Pulse Ox 05/13/20 11:39 97.7 F 121 H 19 176/103 97 05/13/20 10:36 98.9 F 106 H 18 144/88 100 05/13/20 10:00 106 H 18 144/88 100 05/13/20 09:00 110 H 18 100 05/13/20 08:17 116 H 18 141/89 100 05/13/20 07:12 98.9 F 120 H 18 166/99 100 Intake and Output 05/12/20 05/13/20 05/13/20 22:59 06:59 14:59 Other: Weight 81.193 kg Examination is awake alert oriented comfortable on room air HEENT exam no JVP neck is supple no facial asymmetry Lungs are clear to auscultation good air entry bilaterally Heart sounds are unremarkable except for the tachycardia could not hear a murmur rub gallop although she has had valve replacement details are not available Abdomen soft nontender slightly protuberant and obese Extremity exam reveals moderate edema Neurologically awake alert oriented EKG shows junctional rhythm A chest x-ray shows possible congestive heart failure Results - Lab Results Most recent lab results Calcium 9.1 mg/dL (8.4-10.2) 05/13/20 07:46 Magnesium 1.4 mg/dL (1.6-2.3) L 05/13/20 07:46 05/13/20 07:46 05/13/20 07:46 Assessment and Plan Assessment: Impression 1. ESRD on dialysis visit Thursday via a permacath that his newly placed on the right side. Admitted because of tachycardia predialysis this morning on Thursday which is his schedule because of the new year. 9 kg weight gain for dialysis unit at [facility] unit 2. Recent cardiac surgery with valve replacement for possible endocarditis in March 2020 at [facility]. She had MRSA on 03/17/2020 and on 01/30/2020 multiple blood cultures positive. On 03/20/2020 it was negative 3. Significant edema 4. Anemia hemoglobin is 8.4, secondary to CK D and rule out iron deficiency chronically she is had a low hemoglobin 5. Mild hyponatremia secondary to free water in a ESRD patient 6. No evidence of acute MO troponins 0.035, EGD shows some junctional rhythm. Potassium is 4.6 and magnesium is slightly low at 1.4 Recommendation 1. Will dialyze her today with 3 L taken off for 3 and half hours but because of the pandemic and staffing issues they may not be able to do 3-1/2 hours. She can be discharged after this
--- NOTE | 2020-05-13 12:32 | HP ---
HISTORY AND PHYSICAL 54-year-old white female came in with severe tachycardia in the 120s-140s. She was found to have fluid overload in the emergency room waiting. She missed 1 episode of dialysis as an outpatient. She is going to be admitted for Cardiology consult and for emergency dialysis. She cannot produce urine. They would not dialyze her due to tachycardia. Cardiology will assess her and possibly add some blood pressure medication. MEDICINES: Home medicines: She takes clonidine 0.3 t.i.d., Compazine 5 mg b.i.d. p.r.n. Humalog 10 mg a.c. t.i.d., Restoril 20 b.i.d., hydralazine 100 t.i.d., [place] 7.5 t.i.d., Singulair 10 mg daily, Basaglar 60 units daily, ProAir HFA 2 puffs q.4 hours p.r.n., Lasix 80 mg b.i.d., Humalog a.c. q.h.s., Revatio 20 mg t.i.d., Tessalon Perles 100 mg t.i.d., Flexeril 5 mg daily, promethazine 5 mg q.6 hours p.r.n., tramadol 50 q.12h p.r.n. ALLERGIES: CIPRO, IODINE. 14-point review of systems otherwise is negative. PAST MEDICAL HISTORY: Blood disorder, heart failure, diabetes mellitus, renal dialysis, end-stage renal disease, liver disease, hypercholesterolemia, hypertension and retinal hemorrhages, hypertriglyceridemia, bilateral cataracts, chronic anemia, insulin-dependent diabetes mellitus. PAST SURGICAL HISTORY: Cardiac valve replacement, orthopedic surgery, uterine ablation, liver biopsies. SOCIAL HISTORY: Does not smoke. No alcohol. No drugs. FAMILY MEDICAL HISTORY: Brother, mother with cancer. Father with hypertension, alcoholism. PHYSICAL EXAM: White female in no acute distress. Cardiovascular S1-S2. Lungs rales at the bases. GI is soft. Hematology negative Homans. Psych: Fair mood and affect. NEUROLOGIC: Alert and oriented x3. Pupils equal, round, reactive to light and accommodation. ENT: External ear canals within normal limits. Psych: Normal evaluation. Abdomen soft, nontender. Temp 98.9, heart rates in the 120-130s, respiratory 16-18. Blood pressure 140s to 160s over 80s to 90s. O2 100%. EKG junctional rhythm at 120. QT interval EKG. No ST changes. CT chest shows CHF. Heart rate is 51, 150, 120. White count is 4.9, hemoglobin is 8.4, sodium 131, potassium 4.6, BUN 56, creatinine 5.92, protein 34. ASSESSMENT: 1. Acute pulmonary edema. 2. Junctional tachycardia. 3. Acute on chronic anemia. 4. End-stage renal disease. 5. Hypertension. 6. Congestive heart failure. 7. History of recent valvular bacterial infection on the heart valve, which she had surgery done in [place]. 8. Dyslipidemia. 9. Depression/anxiety. Continue current treatments. Please see further orders. MMODL / IJN: [id number] /
[2020-05-13] MEDS ORDERED: NITROGLYCERIN OINT 1 INCH/GM PACKET TOPICAL SCH (13:00)
[2020-05-13] MEDS ORDERED: FUROSEMIDE 80 MG TAB PO SCH (16:00)
[2020-05-13] MEDS: SILDENAFIL 20 MG TAB PO SCH ×2 (16:53→19:46)
[2020-05-13] MEDS: FUROSEMIDE 80 MG TAB PO SCH (16:53)
[2020-05-13] MEDS: cloNIDine HCL 0.1 MG TAB PO SCH ×2 (16:53→19:45)
[2020-05-13] MEDS: hydrALAZINE HCL 50 MG TAB PO SCH ×2 (16:53→19:46)
[2020-05-13 17:11] LABS: Glucose,Whole Blood 106 mg/dL (75-99)
[2020-05-13] MEDS: ALBUTEROL NEBULIZED 2.5 MG/3 ML INHALATION PRN (19:23)
[2020-05-13] MEDS: CYCLOBENZAPRINE 5 MG TAB PO SCH (19:45)
[2020-05-13] MEDS: MONTELUKAST 10 MG TAB PO SCH (19:45)
[2020-05-13] MEDS: PANTOPRAZOLE 40 MG TABLET PO SCH (19:45)
[2020-05-13] MEDS: BENZONATATE 100 MG CAP PO PRN (19:46)
[2020-05-13] MEDS: HYDROcodone/APAP 7.5-325MG 1 EACH TAB PO PRN (19:46)
[2020-05-13] MEDS: INSULIN DETEMIR (LEVEMIR) 100 UNIT/ML SYR SQ SCH (21:14)
[2020-05-13 21:21] LABS: Glucose,Whole Blood 283 mg/dL (75-99)
[2020-05-13] MEDS: PROMETHAZINE HCL 6.25 MG/5 ML CUP PO PRN (22:08)
[2020-05-13 23:30] LABS: Hepatitis B Surface AB- Quant 35.2 mIU/mL; Hepatitis B Surface Antibody Reactive (Non-Reactive); Hepatitis B Surface Antigen Non-Reactive (Non-Reactive)
[2020-05-14] MEDS: BENZONATATE 100 MG CAP PO PRN ×3 (03:27→16:31)
[2020-05-14] MEDS: PROMETHAZINE HCL 6.25 MG/5 ML CUP PO PRN ×3 (04:55→21:00)
[2020-05-14] MEDS: traMADol 50 MG TAB PO PRN ×2 (04:58→14:03)
[2020-05-14] MEDS: INSULIN ASPART (NovoLOG) 100 UNIT/ML VIAL SQ SCH ×7 (07:03→20:59)
[2020-05-14 07:06] LABS: Glucose,Whole Blood 114 mg/dL (75-99)
[2020-05-14] MEDS: ALBUTEROL NEBULIZED 2.5 MG/3 ML INHALATION PRN (08:02)
[2020-05-14] MEDS: SILDENAFIL 20 MG TAB PO SCH ×3 (08:44→20:59)
[2020-05-14] MEDS: HYDROcodone/APAP 7.5-325MG 1 EACH TAB PO PRN ×2 (08:44→21:00)
[2020-05-14] MEDS: FUROSEMIDE 80 MG TAB PO SCH ×2 (08:45→15:17)
[2020-05-14] MEDS: PANTOPRAZOLE 40 MG TABLET PO SCH ×2 (08:45→20:59)
[2020-05-14] MEDS: METOPROLOL TARTRATE 50 MG TAB PO SCH ×2 (08:45→20:59)
[2020-05-14] MEDS ORDERED: ATORVASTATIN 40 MG TAB PO SCH ×2 (09:00→21:00)
--- NOTE | 2020-05-14 09:01 | CONS ---
CONSULTATION Mrs. Desouza is a 54-year-old female who presented yesterday with evidence of tachycardia that was noted in the dialysis unit. She has a known history of end-stage renal disease on hemodialysis for the last 3-1/2 years. Recently was admitted with recurrent positive blood culture and evidence for endocarditis on the mitral valve. Subsequently was transferred to [facility] and underwent mitral valve surgery. Full details of the surgery is not available. Apparently, after discharge her diuretics were held, she was discharged earlier in April and started to have worsening peripheral edema. She was seen in the dialysis unit and was noted to be tachycardic and subsequently transferred. She has no significant change in her breathing. She has no dizziness. She is not aware of the arrhythmia. She has no history of obstructive coronary artery disease. On a regular basis she has no significant peripheral edema. She denies any history of PND, orthopnea. Her left ventricular systolic function in the past was normal. Her coronary risk factors are remarkable for hypertension, diabetes. She is a nonsmoker. MEDICATION: Include Apresoline 100 mg 3 times a day, clonidine 0.3 mg 3 times a day, Revatio 20 mg 3 times a day, Singulair, insulin, Lasix 80 mg twice a day, ProAir. REVIEW OF SYSTEMS: RESPIRATORY SYSTEM: She has no recent wheezing or cough. No history of documented obstructive pulmonary disease. GI SYSTEM: No recent GI bleeding. No peptic ulcer disease. SYSTEM: She is on hemodialysis. She has some urine output. NERVOUS SYSTEM: No stroke or seizure. PHYSICAL EXAMINATION: She is a 54-year-old female, alert, oriented, no apparent distress. Blood pressure running in the 140s to 160s with a heart rate in the 120s. HEAD: Normocephalic, eyes sclerae anicteric. NECK: Good carotid upstroke with transmitted murmur. LUNGS: No rales or wheezes. HEART: tachycardic S1, S2. No S3 with systolic ejection murmur heard at the base. No diastolic murmur. No rub. ABDOMEN: Soft, nontender, positive bowel sounds, no organomegaly. EXTREMITIES: +2 edema bilaterally. LAB DATA: Revealed hemoglobin of 8.4, BUN and creatinine 56 and 5.92, potassium 4.6. NT proBNP of 46,800, troponin 0.035. EKG revealed a junctional tachycardia with retrograde P waves. Chest x-ray is shows mild interstitial edema with possible CHF. IMPRESSION: 1. Junctional tachycardia could be worsened by the fluid overload. The patient is status post recent mitral valve surgery for endocarditis. 2. History of mitral valve surgery for endocarditis done at [facility]. 3. End-stage renal disease, on hemodialysis. 4. Hypertension elevated. 5. Diabetes mellitus. 6. Prior history of fistula in the left upper extremity not used, now using a dialysis catheter on the right side. RECOMMENDATION: From the cardiac standpoint, I will obtain echocardiogram with Doppler. I will also obtain the results of her prior workup performed at [facility]. I will start her on a beta angela and a statin. Will review her data. I am hopeful that with dialysis we can improve her rate. Otherwise, further adjustment of her medical regimen will be needed. Thank you for this consult. We will follow with you. MARIANNE / LIDIA: [id number] /
[2020-05-14] MEDS ORDERED: Magnesium Replacement Protocol 1 EACH MISC MISCELLANE PRN (10:50)
[2020-05-14 11:24] VITALS: BMI 31.4
--- NOTE | 2020-05-14 11:33 | P.PN ---
Subjective Patient is seen in follow-up for end-stage renal disease. She is maintained on hemodialysis on Thursday schedule. He tolerated 3 L ultrafiltration yesterday. No chest pain or shortness of breath. Still complaining of edema. Vital signs are stable. General: The patient appeared well nourished and normally developed. HEENT: Head exam is unremarkable. Neck is without jugular venous distension. LUNGS: Breath sounds decreased. HEART: Rate and Rhythm are regular. ABDOMEN: Soft, nontender. EXTREMITITES: 2+ edema. Objective - Vital Signs Vital signs: Vital Signs Temp 98.9 F 05/14/20 08:30 Pulse 104 H 05/14/20 08:30 Resp 19 05/14/20 08:30 BP 158/94 05/14/20 08:30 Pulse Ox 96 05/14/20 08:30 Intake & Output 05/13/20 05/14/20 05/14/20 18:59 06:59 18:59 Intake Total 240 480 480 Output Total 3600 Balance -3360 480 480 Weight 81.193 kg 80.6 kg 80.6 kg Intake: Oral 240 480 480 Output: Urine 600 Hemodialysis 3000 Other: Voiding Method Toilet Toilet # Voids 2 1 - Labs CBC & Chem 7: 05/13/20 07:46 05/13/20 07:46 Labs: Abnormal Lab Results - Last 24 Hours (Table) 05/13/20 05/13/20 05/13/20 Range/Units 15:15 16:56 21:15 POC Glucose (mg/dL) 106 H 283 H (75-99) mg/dL Hep Bs Antibody Reactive A (Non-Reactive) 05/14/20 Range/Units 07:00 POC Glucose (mg/dL) 114 H (75-99) mg/dL Hep Bs Antibody (Non-Reactive) Microbiology - Last 24 Hours (Table) 05/13/20 07:46 Blood Culture - Preliminary Blood No Growth after 24 hours Assessment and Plan Plan: Assessment: 1. End-stage renal disease maintained on hemodialysis on Thursday schedule. 2. Diabetes mellitus. 3. Hypertension with chronic kidney disease. Partially volume sensitive. 4. Volume overload. 5. Chronic kidney disease mineral bone disease. 6. Junctional tachycardia. Cardiology following. 7. Recent endocarditis status post mitral valve surgery and [facility] in March 2020. 8. Anemia of chronic kidney disease. Rule out iron deficiency. Plan: Extra hemodialysis treatment today mostly for ultrafiltration purposes. Another treatment tomorrow per her outpatient schedule. Check phosphorus level. Maintain Lasix. Follow-up echocardiogram. Check iron studies. Add Aranesp.
[2020-05-14 11:54] LABS: Glucose,Whole Blood 53 mg/dL (75-99)
[2020-05-14] MEDS ORDERED: DARBEPOETIN ALFA 40 MCG/0.4 ML SYRINGE SQ SCH (12:00)
[2020-05-14 12:27] LABS: Glucose,Whole Blood 126 mg/dL (75-99)
--- NOTE | 2020-05-14 13:01 | ECHOF ---
Referral Reason:mvr MEASUREMENTS -------- HEIGHT: 160.0 cm WEIGHT: 80.3 kg BP: 166/92 IVSd: 1.4 cm (0.6 - 1.1) LVIDd: 3.2 cm (3.9 - 5.3) LVPWd: 1.1 cm (0.6 - 1.1) IVSs: 1.7 cm LVIDs: 2.5 cm LVPWs: 2.2 cm RAP: 5.00 mmHg RVSP: 82.44 mmHg FINDINGS -------- This was a technically adequate study. Limited Study The left ventricular size is normal. There is moderate concentric left ventricular hypertrophy. O verall left ventricular systolic function is low-normal with, an EF between 50 - 55 %. Septal wall motion is delayed and consistent with prior cardiac surgery. There is severe aortic valve sclerosis. There is mild aortic regurgitation. There is no evidence of aortic stenosis. Cannot rule out vegetation. Cannot rule out vegetation. Bioprosthetic Mitral valve. can not r/o vegitation vs flail object seen in LV. Severe tricuspid regurgitation present. There is severe pulmonary hypertension. The right ventric ular systolic pressure, as measured by Doppler, is 82.44mmHg. There is no pericardial effusion. CONCLUSIONS -------- 1. The left ventricular size is normal. 2. There is moderate concentric left ventricular hypertrophy. 3. Overall left ventricular systolic function is low-normal with, an EF between 50 - 55 %. 4. There is severe aortic valve sclerosis. 5. There is no evidence of aortic stenosis. 6. Cannot rule out vegetation. 7. Cannot rule out vegetation. 8. Bioprosthetic Mitral valve. flail object seen in LV. 9. Severe tricuspid regurgitation present. 10. There is severe pulmonary hypertension. 11. The right ventricular systolic pressure, as measured by Doppler, is 82.44mmHg. 12. Mobile echo d ense structure in LV is probabvly chordal structure - consider TK if clinically indicated CAR BUILDER: [facility]
[2020-05-14 13:18] LABS: Phosphorus 3.5 mg/dL (2.5-4.5)
[2020-05-14] MEDS: cloNIDine HCL 0.1 MG TAB PO SCH ×3 (15:17→20:59)
[2020-05-14] MEDS: hydrALAZINE HCL 50 MG TAB PO SCH ×3 (15:17→20:59)
[2020-05-14 17:12] LABS: Glucose,Whole Blood 177 mg/dL (75-99)
[2020-05-14 19:56] LABS: % Iron Saturation 27.8 (12.00-45.00)
[2020-05-14 20:14] LABS: Glucose,Whole Blood 174 mg/dL (75-99)
[2020-05-14 20:32] LABS: Ferritin 2334.7 ng/mL (10.0-291.0)
[2020-05-14] MEDS: CYCLOBENZAPRINE 5 MG TAB PO SCH (20:58)
[2020-05-14] MEDS: MONTELUKAST 10 MG TAB PO SCH (20:59)
[2020-05-14] MEDS: INSULIN DETEMIR (LEVEMIR) 100 UNIT/ML SYR SQ SCH (21:00)
--- NOTE | 2020-05-14 21:49 | PN ---
PROGRESS NOTE A 54-year-old white female who had echocardiogram today by Dr. Guaman to look for valvular heart disease, ejection fraction of 50-55 percent, severe aortic sclerosis, no aortic stenosis. rule out vegetation. Bioprosthetic mitral valve. Severe tricuspid regurgitation. Pulmonary hypertension. Dialysis may be done by Dr. Jones. Came in with tachycardia. Waiting for Cardiology to readjust medications. Cardiovascular S1-S2. Lungs are clear. ASSESSMENT: 1. Junctional tachycardia could be worsened by fluid overload. 2. Status post mitral valve surgery for endocarditis. 3. History of mitral valve surgery at [facility]. 4. End-stage renal disease. 5. Hypertension. 6. Diabetes mellitus. 7. Prior history of fistula left upper extremity. Cardiology take a look at [facility] treatment. Maybe increase her beta-angela and statin, especially if pulse does not come down below 100. Await for further recommendations. MMODL / IJN: [id number] /
[2020-05-15] MEDS: PROMETHAZINE HCL 6.25 MG/5 ML CUP PO PRN ×2 (02:58→09:13)
[2020-05-15] MEDS: BENZONATATE 100 MG CAP PO PRN (02:58)
[2020-05-15 05:04] LABS: Glucose,Whole Blood 57 mg/dL (75-99)
[2020-05-15 05:26] LABS: Glucose,Whole Blood 87 mg/dL (75-99)
[2020-05-15 06:58] LABS: Glucose,Whole Blood 67 mg/dL (75-99)
[2020-05-15] MEDS: INSULIN ASPART (NovoLOG) 100 UNIT/ML VIAL SQ SCH ×6 (06:58→18:24)
[2020-05-15 07:10] LABS: Glucose,Whole Blood 70 mg/dL (75-99)
--- NOTE | 2020-05-15 08:51 | PN ---
PROGRESS NOTE Mrs. Desouza is a 54-year-old female status post recent mitral valve replacement for endocarditis, history of end-stage renal disease on hemodialysis who was admitted with junctional tachycardia. She is back in sinus mechanism. Underwent dialysis yesterday with improvement of peripheral edema. She is feeling well. She denies any dizziness or palpitation. She denies any nausea. She underwent an echocardiogram yesterday that revealed a preserved systolic function, ejection fraction 50% to 55% with a bioprosthetic mitral valve. 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 The same findings were noted on the echocardiogram performed at [facility]. She had evidence of severe tricuspid regurgitation and pulmonary hypertension. She continues to be at this time on Lipitor 40 mg daily, clonidine 0.3 mg 3 times a day, Lasix 80 mg twice a day, hydralazine 100 mg 3 times a day, metoprolol tartrate 50 mg twice a day, Revatio 20 mg 3 times a day. PHYSICAL EXAMINATION: Blood pressure running 145/70 with the heart rate in the 70s. LUNGS: Clear. HEART: Regular rate and rhythm. S1, S2. No S3 with systolic murmur at the base. No diastolic murmur. No rub. ABDOMEN: Soft, nontender. Positive bowel sounds. EXTREMITIES: +1 edema bilaterally. IMPRESSION: 1. Junctional tachycardia, resolved after dialysis. 2. Status post recent mitral valve replacement for endocarditis. 3. History of hypertension. 4. End-stage renal disease. RECOMMENDATION: From the cardiac standpoint, she is stable. I would expect she should be able to be discharged home today and follow up with Dr. Tesfaye as scheduled. MMODL / IJN: [id number] /
[2020-05-15 08:53] LABS: Magnesium 1.4 mg/dL (1.6-2.3)
[2020-05-15 09:05] VITALS: RESP 18
[2020-05-15] MEDS: METOPROLOL TARTRATE 50 MG TAB PO SCH ×2 (09:05→19:03)
[2020-05-15] MEDS: cloNIDine HCL 0.1 MG TAB PO SCH ×2 (09:05→16:46)
[2020-05-15] MEDS: hydrALAZINE HCL 50 MG TAB PO SCH ×2 (09:05→16:46)
[2020-05-15] MEDS: PANTOPRAZOLE 40 MG TABLET PO SCH (09:06)
[2020-05-15] MEDS: FUROSEMIDE 80 MG TAB PO SCH ×2 (09:06→16:46)
[2020-05-15] MEDS: SILDENAFIL 20 MG TAB PO SCH ×2 (09:06→16:48)
[2020-05-15] MEDS ORDERED: MAGNESIUM SULFATE-D5W PMX 1 GM in DEXTROSE/WATER 1 100ML.BAG IVPB SCH (12:00)
[2020-05-15 12:01] LABS: Glucose,Whole Blood 136 mg/dL (75-99)
[2020-05-15] MEDS ORDERED: MAGNESIUM SULFATE-D5W PMX 1 GM in DEXTROSE/WATER 1 100ML.BAG IVPB ONE (12:30)
--- NOTE | 2020-05-15 12:48 | P.PN ---
Subjective Patient is seen in follow-up for end-stage renal disease. She is maintained on hemodialysis on Thursday schedule. Tolerated 3 L u ltrafiltration yesterday. No chest pain or shortness of breath. Tolerating dialysis well today. Edema improving. Vital signs are stable. General: The patient appeared well nourished and normally developed. HEENT: Head exam is unremarkable. Neck is without jugular venous distension. LUNGS: Breath sounds decreased. HEART: Rate and Rhythm are regular. ABDOMEN: Soft, nontender. EXTREMITITES: 2+ edema. Objective - Vital Signs Vital signs: Vital Signs Temp 99 F 05/15/20 12:35 Pulse 89 05/15/20 12:35 Resp 18 05/15/20 12:35 BP 164/84 05/15/20 12:35 Pulse Ox 97 05/15/20 12:35 Intake & Output 05/14/20 05/15/20 05/15/20 18:59 06:59 18:59 Intake Total 720 480 240 Output Total 100 Balance 720 380 240 Weight 80.6 kg 78.7 kg Intake: Oral 720 480 240 Output: Urine 100 Other: Voiding Method Toilet Toilet # Voids 1 1 1 - Labs CBC & Chem 7: 05/13/20 07:46 05/15/20 07:55 Labs: Abnormal Lab Results - Last 24 Hours (Table) 05/14/20 05/14/20 05/14/20 Range/Units 12:30 16:42 20:10 Sodium (137-145) mmol/L Chloride (98-107) mmol/L BUN (7-17) mg/dL Creatinine (0.52-1.04) mg/dL Glucose (74-99) mg/dL POC Glucose (mg/dL) 177 H 174 H (75-99) mg/dL Magnesium (1.6-2.3) mg/dL TIBC 223 L (228-460) ug/dL Ferritin 2334.7 H (10.0-291.0) ng/mL 05/15/20 05/15/20 05/15/20 Range/Units 05:02 06:56 07:08 Sodium (137-145) mmol/L Chloride (98-107) mmol/L BUN (7-17) mg/dL Creatinine (0.52-1.04) mg/dL Glucose (74-99) mg/dL POC Glucose (mg/dL) 57 L 67 L 70 L (75-99) mg/dL Magnesium (1.6-2.3) mg/dL TIBC (228-460) ug/dL Ferritin (10.0-291.0) ng/mL 05/15/20 05/15/20 Range/Units 07:55 11:56 Sodium 132 L (137-145) mmol/L Chloride 96 L (98-107) mmol/L BUN 35 H (7-17) mg/dL Creatinine 4.85 H (0.52-1.04) mg/dL Glucose 126 H (74-99) mg/dL POC Glucose (mg/dL) 136 H (75-99) mg/dL Magnesium 1.4 L (1.6-2.3) mg/dL TIBC (228-460) ug/dL Ferritin (10.0-291.0) ng/mL Microbiology - Last 24 Hours (Table) 05/13/20 07:46 Blood Culture - Preliminary Blood No Growth after 48 hours Assessment and Plan Plan: Assessment: 1. End-stage renal disease maintained on hemodialysis on Thursday schedule. 2. Diabetes mellitus. 3. Hypertension with chronic kidney disease. Partially volume sensitive. 4. Volume overload. Improving with ultrafiltration. 5. Chronic kidney disease mineral bone disease. Phosphorous normal. 6. Junctional tachycardia. Cardiology following. Heart rate currently stable. 7. Recent endocarditis status post mitral valve surgery and [facility] in March 2020. 8. Anemia of chronic kidney disease. Maintained on Aranesp. Iron replete. 9. Acute on chronic diastolic CHF with severe tricuspid regurgitation and pulmonary hypertension. Plan: Currently seen while undergoing hemodialysis. Next treatment on . Replace magnesium. 2 g IV today. Anticipate discharge soon.
[2020-05-15 14:20] LABS: Hemoglobin A1C 5.9 % (4.0-6.0)
[2020-05-15 15:30] VITALS: TEMP 98.7
[2020-05-15 15:46] VITALS: BP 143/72; PULSE 84
[2020-05-15] MEDS: MAGNESIUM SULFATE-D5W PMX 1 GM in DEXTROSE/WATER 1 100ML.BAG IVPB SCH ×2 (16:46→17:52)
[2020-05-15 16:56] LABS: Glucose,Whole Blood 157 mg/dL (75-99)
== END 2020-05-15 19:15 | disposition home or self-care (01) ==
LOC: EC 07:06 → 3SCARD 09:33
PROVIDERS: ADMIT Family Medicine; ATTEND Family Medicine
DX: I97.190 Other postprocedural cardiac functional disturbances following cardiac surgery (principal); I47.1 Supraventricular tachycardia; E87.70 Fluid overload, unspecified; Z95.2 Presence of prosthetic heart valve; E87.1 Hypo-osmolality and hyponatremia; I13.2 Hypertensive heart and chronic kidney disease with heart failure and with stage 5 chronic kidney disease, or end stage renal disease; E11.22 Type 2 diabetes mellitus with diabetic chronic kidney disease; N18.6 End stage renal disease; I50.33 Acute on chronic diastolic (congestive) heart failure; D63.1 Anemia in chronic kidney disease; Z99.2 Dependence on renal dialysis; I70.0 Atherosclerosis of aorta; I07.1 Rheumatic tricuspid insufficiency; I27.20 Pulmonary hypertension, unspecified; I38 Endocarditis, valve unspecified; M89.8X9 Other specified disorders of bone, unspecified site; E78.00 Pure hypercholesterolemia, unspecified; E78.5 Hyperlipidemia, unspecified; F32.9 Major depressive disorder, single episode, unspecified; F41.9 Anxiety disorder, unspecified; K76.9 Liver disease, unspecified; Z87.01 Personal history of pneumonia (recurrent); H26.9 Unspecified cataract; H35.63 Retinal hemorrhage, bilateral; E78.1 Pure hyperglyceridemia; Z87.440 Personal history of urinary (tract) infections; G51.0 Bell's palsy; Z87.81 Personal history of (healed) traumatic fracture; Z86.14 Personal history of Methicillin resistant Staphylococcus aureus infection; Z98.890 Other specified postprocedural states; Z90.411 Acquired partial absence of pancreas; Z80.9 Family history of malignant neoplasm, unspecified; Z82.49 Family history of ischemic heart disease and other diseases of the circulatory system; Z81.1 Family history of alcohol abuse and dependence; Z79.4 Long term (current) use of insulin; Z79.899 Other long term (current) drug therapy; Z88.1 Allergy status to other antibiotic agents; Z91.041 Radiographic dye allergy status
CPT/HCPCS: 96365; 96366; 96372; 93005 ×2; 96375; 99291; 36415; 94640 ×2; 93306; 83880; 80053; 80048; 84443; 82728; 83540; 83550; 83735 ×3; 84100; 84484; 85025; 85610; 85730; 86706; 87340; 81001; 87040; 83036; 71046; G0257 ×3; G0378 ×3; S0183; J1940; J3475; J0881; 90935

== ENCOUNTER 2020-06-09 10:43 | Inpatient (IN) | payer OTHER ==
[2020-06-09] MEDS ORDERED: ACETAMINOPHEN TAB 325 MG TAB PO STA (11:16)
--- NOTE | 2020-06-09 11:16 | ED ---
Fever HPI - General Chief Complaint: Fever Stated Complaint: Fever Time Seen by Provider: 06/09/20 10:43 Source: patient, EMS, RN notes reviewed Mode of arrival: EMS Limitations: no limitations - History of Present Illness Initial Comments: this is a 54-year-old female history of end-stage renal disease who gets dialysis on Thursday is who presents after being transferred from [facility] with complaints that onset of fever today she's had a cough for 3 days. She did not get dialysis today she was found have an elevated temperature of 103.6 he was sent for evaluation. She was had found have a white count of 8.80 calcitonin was greater than 100 hemoglobin 9.2 which is within her normal range EKG apparently showed nonspecific findings x-ray showed some evidence of possible increased pulmonary vascular findings. Patient states her cough has been dry. She states she did get a porcine valve replacement in March of this past year. No chest pain except from coughing. MD Complaint: fever, other - Related Data Home Medications Medication Instructions Recorded Confirmed cloNIDine HCL 0.3 mg PO TID 12/16/16 06/09/20 Prochlorperazine [Compazine] 5 mg PO BID PRN 10/26/17 06/09/20 INSULIN LISPRO (humaLOG) [humaLOG] 10 unit SQ AC-TID 07/12/18 06/09/20 Omeprazole 20 mg PO BID 11/01/18 06/09/20 hydrALAZINE HCL [Apresoline] 100 mg PO TID 12/14/18 06/09/20 HYDROcodone/APAP 7.5-325MG [[place] 1 tab PO TID PRN 11/08/19 06/09/20 7.5-325] Montelukast [Singulair] 10 mg PO HS 11/08/19 06/09/20 Insulin Glargine,Hum.rec.anlog 60 unit SQ HS 12/02/19 06/09/20 [Basaglar Kwikpen U-100] Albuterol Sulfate [Proair Hfa] 2 puff INHALATION RT-Q6H PRN 01/28/20 06/09/20 Furosemide [Lasix] 80 mg PO BID 01/28/20 06/09/20 INSULIN LISPRO (HumaLOG) [humaLOG] See Protocol SQ ACHS 03/17/20 06/09/20 Sildenafil [Revatio] 20 mg PO TID 04/20/20 06/09/20 Benzonatate [Tessalon Perles] 100 mg PO TID PRN 05/13/20 06/09/20 Cyclobenzaprine [Flexeril] 5 mg PO HS 05/13/20 06/09/20 Promethazine 6.25MG/5Ml [Phenergan 5 mg PO Q6H PRN 05/13/20 06/09/20 Syrup] traMADol HCL [Ultram] 50 mg PO Q12H PRN 05/13/20 06/09/20 Lidocaine-Prilocaine Cream [Emla 1 applic TOPICAL DIRECTED PRN 06/09/20 06/09/20 Cream 2.5%/2.5%] rOPINIRole HCL [Requip] 1 mg PO TID 06/09/20 06/09/20 Previous Rx's Medication Instructions Recorded Atorvastatin [Lipitor] 40 mg PO HS 90 Days #90 tab 05/15/20 Metoprolol Tartrate [Lopressor] 50 mg PO BID 180 Days #180 tab 05/15/20 Allergies Allergy/AdvReac Type Severity Reaction Status Date / Time ciprofloxacin [From Cipro] AdvReac AFFECTED Verified 06/09/20 11:40 EYESIGHT ciprofloxacin HCl AdvReac AFFECTED Verified 06/09/20 11:40 [From Cipro] EYESIGHT Iodinated Contrast Media AdvReac RENAL Verified 06/09/20 11:40 FAILURE Review of Systems ROS Statement: Those systems with pertinent positive or pertinent negative responses have been documented in the HPI. ROS Other: All systems not noted in ROS Statement are negative. 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 hemodialysis for acute kidney injury 2 months in 2009 after pancreatic OR, 11/2015 diagnosed w/ chronic kidney disease-hemodialysis //-last hemodialysis 06/02/19, IDDM type II, past DKA, UTI, chronic anemia, frequent body cramping, occasional low back pain, carter's palsy x2, past L leg fx, possible liver disease-recent liver bx-results unknown per pt. History of Any Multi-Drug Resistant Organisms: MRSA Date of last positivie culture/infection: 03/17/20 MDRO Source:: Blood Past Surgical History: Cardiac Valve Replacement, Orthopedic Surgery, Uterine Ablation Additional Past Surgical History / Comment(s): Recent liver biopsy done at [facility] but pt states they have never contacted her with the results, 08/26/17 colonoscopy with polypectomy/bx, pancreatic resection at [facility] 2009, bone marrow biopsies X2-last one 05/19/16,. dialysis chest port x 2 with removals, Left arm shunt placement for dialysis - December 2015 and a revision done with shunt. Left forearm Vein Revision - October 2019 Past Anesthesia/Blood Transfusion Reactions: No Reported Reaction Additional Past Anesthesia/Blood Transfusion Reaction / Comment(s): Pt has received blood transfusions without reaction. Past Psychological History: No Psychological Hx Reported Smoking Status: Never smoker Past Alcohol Use History: None Reported Past Drug Use History: None Reported - Past Family History Brother(s) Family Medical History: No Reported History Mother Family Medical History: Cancer Additional Family Medical History / Comment(s): . Father Family Medical History: Hypertension Additional Family Medical History / Comment(s): alcoholism General Exam - General Exam Comments Initial Comments: this is a well-developed well-nourished awake alert oriented 3 female Limitations: no limitations General appearance: alert, in no apparent distress Head exam: Present: atraumatic, normocephalic, normal inspection Eye exam: Present: normal appearance, PERRL, EOMI. Absent: scleral icterus, conjunctival injection, periorbital swelling ENT exam: Present: mucous membranes dry Neck exam: Present: normal inspection. Absent: tenderness, meningismus, lymphadenopathy Respiratory exam: Present: decreased breath sounds, other (right chest wall dialysis catheter noted). Absent: respiratory distress, wheezes, rales, rhonchi, stridor Cardiovascular Exam: Present: regular rate, normal rhythm, normal heart sounds. Absent: systolic murmur, diastolic murmur, rubs, gallop, clicks GI/Abdominal exam: Present: soft, normal bowel sounds. Absent: distended, tenderness, guarding, rebound, rigid Extremities exam: Present: normal inspection, full ROM, normal capillary refill, pedal edema, other (patient's changes noted there is a deformed fistula in the left upper arm.). Absent: tenderness, joint swelling, calf tenderness Back exam: Present: normal inspection Neurological exam: Present: alert, oriented X3, CN II-XII intact Psychiatric exam: Present: normal affect, normal mood Skin exam: Present: warm, dry, intact, normal color. Absent: rash Course Vital Signs 06/09/20 06/09/20 10:45 11:57 Temperature 99.5 F 101.0 F H Pulse Rate 92 88 Respiratory 18 20 Rate Blood Pressure 112/57 104/58 O2 Sat by Pulse 98 98 Oximetry Medical Decision Making - Medical Decision Making I did review the material sent from [facility] and discussed the findings with Dr. Bragg and Dr. Jonas rid patient is being admitted for suspected pneumonia and dialysis needed - Radiology Data Radiology results: report reviewed (imaging reviewed evidence of), image reviewed Disposition Clinical Impression: Febrile illness, acute, Pneumonia, Chronic renal failure syndrome Disposition: ADMITTED IP TO THIS [facility] Condition: Fair Referrals: David Bragg MD [Primary Care Provider] - 1-2 days
[2020-06-09] MEDS ORDERED: PNEUMONIA PROTOCOL UTILIZED 1 EACH MISC PO PRN (12:10)
[2020-06-09] MEDS ORDERED: AZITHROMYCIN 500 MG in SODIUM CHLORIDE 0.9% 250 ML IVPB STA (12:10)
[2020-06-09] MEDS ORDERED: LIDOCAINE-PRILOCAINE 2.5-2.5% CREAM 5 GM TUBE TOPICAL PRN (12:15)
[2020-06-09] MEDS ORDERED: PROMETHAZINE HCL 6.25 MG/5 ML CUP PO PRN (12:15)
--- NOTE | 2020-06-09 13:18 | P.NPCON ---
History of Present Illness - Reason for Consult Consult date: 06/09/20 end stage renal disease - Chief Complaint ESRD with fever - History of Present Illness This 54-year-old female known to us with ESRD on dialysis Thursday. [facility] She was sent from there without dialysis because of a temperature of 103. We'll influenza tests and Covid bothare negative or negative Fever was noticed since yesterday there is some mild dry cough no nausea vomiting diarrhea. She is known with diabetes, hypertension liver disease previous history of pancreatitis Denies any nausea vomiting diarrhea abdominal pain. 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 hemodialysis for acute kidney injury 2 months in 2009 after pancreatic OR, 11/2015 diagnosed w/ chronic kidney disease-hemodialysis -last hemodialysis 06/02/19, IDDM type II, past DKA, UTI, chronic anemia, frequent body cramping, occasional low back pain, carter's palsy x2, past L leg fx, possible liver disease-recent liver bx-results unknown per pt. History of Any Multi-Drug Resistant Organisms: MRSA Date of last positivie culture/infection: 03/17/20 MDRO Source:: Blood Past Surgical History: Cardiac Valve Replacement, Orthopedic Surgery, Uterine Ablation Additional Past Surgical History / Comment(s): Recent liver biopsy done at [place] but pt states they have never contacted her with the results, 08/26/17 colonoscopy with polypectomy/bx, pancreatic resection at [facility] 2009, bone marrow biopsies X2-last one 05/19/16,. dialysis chest port x 2 with removals, Left arm shunt placement for dialysis - December 2015 and a revision done with shunt. Left forearm Vein Revision - October 2019 Past Anesthesia/Blood Transfusion Reactions: No Reported Reaction Additional Past Anesthesia/Blood Transfusion Reaction / Comment(s): Pt has received blood transfusions without reaction. Past Psychological History: No Psychological Hx Reported Smoking Status: Never smoker Past Alcohol Use History: None Reported Past Drug Use History: None Reported - Past Family History Brother(s) Family Medical History: No Reported History Mother Family Medical History: Cancer Additional Family Medical History / Comment(s): . Father Family Medical History: Hypertension Additional Family Medical History / Comment(s): alcoholism Medications and Allergies Home Medications Medication Instructions Recorded Confirmed Type cloNIDine HCL 0.3 mg PO TID 12/16/16 06/09/20 History Prochlorperazine [Compazine] 5 mg PO BID PRN 10/26/17 06/09/20 History INSULIN LISPRO (humaLOG) [humaLOG] 10 unit SQ AC-TID 07/12/18 06/09/20 History Omeprazole 20 mg PO BID 11/01/18 06/09/20 History hydrALAZINE HCL [Apresoline] 100 mg PO TID 12/14/18 06/09/20 History HYDROcodone/APAP 7.5-325MG [[place] 1 tab PO TID PRN 11/08/19 06/09/20 History 7.5-325] Montelukast [Singulair] 10 mg PO HS 11/08/19 06/09/20 History Insulin Glargine,Hum.rec.anlog 60 unit SQ HS 12/02/19 06/09/20 History [Basaglar Kwikpen U-100] Albuterol Sulfate [Proair Hfa] 2 puff INHALATION RT-Q6H PRN 01/28/20 06/09/20 History Furosemide [Lasix] 80 mg PO BID 01/28/20 06/09/20 History INSULIN LISPRO (HumaLOG) [humaLOG] See Protocol SQ ACHS 03/17/20 06/09/20 History Sildenafil [Revatio] 20 mg PO TID 04/20/20 06/09/20 History Benzonatate [Tessalon Perles] 100 mg PO TID PRN 05/13/20 06/09/20 History Cyclobenzaprine [Flexeril] 5 mg PO HS 05/13/20 06/09/20 History Promethazine 6.25MG/5Ml [Phenergan 5 mg PO Q6H PRN 05/13/20 06/09/20 History Syrup] traMADol HCL [Ultram] 50 mg PO Q12H PRN 05/13/20 06/09/20 History Atorvastatin [Lipitor] 40 mg PO HS 90 Days #90 tab 05/15/20 06/09/20 Rx Metoprolol Tartrate [Lopressor] 50 mg PO BID 180 Days #180 tab 05/15/20 06/09/20 Rx Lidocaine-Prilocaine Cream [Emla 1 applic TOPICAL DIRECTED PRN 06/09/20 06/09/20 History Cream 2.5%/2.5%] rOPINIRole HCL [Requip] 1 mg PO TID 06/09/20 06/09/20 History Allergies Allergy/AdvReac Type Severity Reaction Status Date / Time ciprofloxacin [From Cipro] AdvReac AFFECTED Verified 06/09/20 11:40 EYESIGHT ciprofloxacin HCl AdvReac AFFECTED Verified 06/09/20 11:40 [From Cipro] EYESIGHT Iodinated Contrast Media AdvReac RENAL Verified 06/09/20 11:40 FAILURE Physical Exam Vitals: Vital Signs Temp Pulse Resp BP Pulse Ox 06/09/20 12:36 101.3 F H 89 18 108/61 99 06/09/20 11:57 101.0 F H 88 20 104/58 98 06/09/20 10:45 99.5 F 92 18 112/57 98 Intake and Output 06/08/20 06/09/20 06/09/20 22:59 06:59 14:59 Other: Weight 74.843 kg Evaluation awake alert oriented comfortable HEENT exam no JVP neck is supple no facial asymmetry Lungs are clear to auscultation bilateral disease. Good air entry bilaterally Heart sounds are unremarkable for any murmur rub gallop Abdomen somewhat distended chronically so no masses felt Extremity exam reveals trace edema Neurologically awake alert oriented Assessment and Plan Assessment: Impression 1. ESRD on dialysis Thursday at the [facility] unit with a permacath 2. Admitted with fever of 103 and cough possible pneumonia,: with Covid 19 negative and influenza negative 3. Diabetes mellitus with visual blurring 4. Abdominal bloating chronic Recommendation 1. Will dialyze her today for 3 to half hours and take off 4 L which is her usual. 2. Check labs including CBC and calcium phosphorus renal profile 3. Patient can be discharged if she is stable in next 2-3 days
[2020-06-09] MEDS: INSULIN ASPART (NovoLOG) 100 UNIT/ML VIAL SQ SCH ×5 (14:16→20:55)
--- NOTE | 2020-06-09 14:22 | HP ---
HISTORY AND PHYSICAL Came to the hospital for possible fluid overload, end-stage renal disease, Thursday, , Thursday. She came into the hospital with over temperature 103 and influenza tests, Covid tests were negative. She has history of infective endocarditis. Awaiting a consult with Dr. Coker for this. She has a history of diabetes, hypertension, liver disease, history of pancreatitis. PAST MEDICAL HISTORY: Blood disorder, heart failure, diabetes mellitus, dialysis, hypertension, liver disease, pneumonia, renal disease, bilateral cataracts, retinal hemorrhages, pancreatitis, necrotizing pancreatitis, past DKA, UTI, chronic anemia, cardiac valve replaced, orthopedic surgery, urine ablation, pancreatic resection for lymphoma in 2019. Bone marrow biopsies x2. SOCIAL HISTORY: He is a nonsmoker. No alcohol. No drugs. FAMILY HISTORY: Brother negative. Mother cancer. Father hypertension, alcoholism. MEDICATIONS: Home medicines are: Clonidine 0.3 mg t.i.d., Compazine 5 mg b.i.d., Humalog 10 mg a.c. t.i.d., omeprazole 20 mg b.i.d., hydralazine 100 t.i.d., Amagon 7.5 t.i.d., Singulair 10 mg daily, Basaglar 60 units daily, albuterol 2 puffs q.4 hours p.r.n., Lasix 80 mg b.i.d., Humalog a.c. and q.h.s., Revatio 20 mg t.i.d., Tessalon Perles 200 t.i.d., Flexeril 5 q.h.s., tramadol 50 q.12 hours, Lipitor 40 daily, Lopressor 50 b.i.d., lidocaine topical. ALLERGIES: CIPRO, IODINE. PHYSICAL EXAMINATION: T-max 101.36. INTEGUMENT: She looks dry. Poor skin turgor. LUNGS are clear. HEART S1, S2. ABDOMEN is soft. EXTREMITIES: No edema. NEUROLOGIC: Cranial nerves are intact. ASSESSMENT: 1. End-stage renal disease. 2. Fever, unclear etiology. 3. Possible pneumonia. 4. Diabetes mellitus. 5. Abdominal bloating, chronic. We will have to rule out endocarditis as she has had this before. Dialysis today. Broad-spectrum antibiotics. Await for Infectious Disease consult. MMODL / IJN: [id number] /
[2020-06-09 14:48] LABS: Anisocytosis Slight; Basophils % (A) 0 %; Eosinophils % (A) 0 %; HCT 24.2 % (34.0-46.0); HGB 7.9 gm/dL (11.4-16.0); Lymphocytes # (A) 0.1 k/uL (1.0-4.8); Lymphocytes % (A) 2 %; MCH 30.8 pg (25.0-35.0); MCHC 32.5 g/dL (31.0-37.0); MCV 94.9 fL (80.0-100.0); Mean Platelet Volume 9.4; Monocytes # (A) 0.3 k/uL (0-1.0); Monocytes % (A) 6 %; Neutrophils % (A) 91 %; RBC 2.55 m/uL (3.80-5.40); RDW 16.8 % (11.5-15.5); WBC 5.5 k/uL (3.8-10.6)
[2020-06-09] MEDS ORDERED: VANCOMYCIN IV PER PHARMACY 1 EACH MISC MISCELLANE PRN (14:55)
[2020-06-09 15:13] LABS: Hypochromasia (M) Present; Platelet Count 79 k/uL (150-450); Poikilocytosis (M) Present; Polychromasia Present
[2020-06-09 15:22] LABS: ALT 12 U/L (4-34); AST 21 U/L (14-36); Albumin 3.7 g/dL (3.5-5.0); Albumin/Globulin Ratio 1.5; Alkaline Phosphatase 80 U/L (38-126); Anion Gap 18 mmol/L; Blood Urea Nitrogen 61 mg/dL (7-17); Calcium 8.5 mg/dL (8.4-10.2); Carbon Dioxide 23 mmol/L (22-30); Chloride 89 mmol/L (98-107); Globulin 2.4 g/dL; Glucose 171 mg/dL (74-99); Potassium 4.9 mmol/L (3.5-5.1); Sodium 130 mmol/L (137-145); Total Bilirubin 1.1 mg/dL (0.2-1.3); Total Protein 6.1 g/dL (6.3-8.2)
[2020-06-09 15:24] LABS: African American GFR (CKD) 8 (>60 ml/min/1.73 sqM); Non-African American GFR(CKD) 7 (>60 ml/min/1.73 sqM)
[2020-06-09] MEDS ORDERED: VANCOMYCIN 1,250 MG in SODIUM CHLORIDE 0.9% 250 ML IVPB ONE (15:30)
[2020-06-09] MEDS: BENZONATATE 100 MG CAP PO PRN (16:32)
[2020-06-09] MEDS: ALBUTEROL HFA INHALER INHALATION PRN (16:56)
[2020-06-09 17:25] LABS: Glucose,Whole Blood 122 mg/dL (75-99)
[2020-06-09] MEDS: cloNIDine HCL 0.1 MG TAB PO SCH ×2 (17:45→20:43)
[2020-06-09] MEDS: hydrALAZINE HCL 50 MG TAB PO SCH ×2 (17:45→20:43)
[2020-06-09] MEDS: ACETAMINOPHEN TAB 325 MG TAB PO PRN (17:58)
[2020-06-09] MEDS: SILDENAFIL 20 MG TAB PO SCH ×2 (17:58→20:43)
[2020-06-09 20:25] LABS: Glucose,Whole Blood 131 mg/dL (75-99)
[2020-06-09] MEDS: HYDROcodone/APAP 7.5-325MG 1 EACH TAB PO PRN (20:42)
[2020-06-09] MEDS: ATORVASTATIN 40 MG TAB PO SCH (20:43)
[2020-06-09] MEDS: METOPROLOL TARTRATE 50 MG TAB PO SCH (20:43)
[2020-06-09] MEDS: CYCLOBENZAPRINE 5 MG TAB PO SCH (20:43)
[2020-06-09] MEDS: INSULIN DETEMIR (LEVEMIR) 100 UNIT/ML SYR SQ SCH (20:43)
[2020-06-09] MEDS: MONTELUKAST 10 MG TAB PO SCH (20:43)
[2020-06-09] MEDS ORDERED: FUROSEMIDE 80 MG TAB PO SCH (21:00)
--- NOTE | 2020-06-09 22:47 | CONS ---
CONSULTATION DATE OF SERVICE: 06/09/2020 REASON FOR CONSULTATION: Fever of unknown origin. HISTORY OF PRESENT ILLNESS: The patient is a 54-year-old female with a past medical history significant for end-stage renal disease, on hemodialysis Thursday, , Thursday. This patient also has history of MRSA bacteremia with endocarditis status post mitral valve replacement. The patient has recently completed antibiotic therapy with vancomycin. The patient went to dialysis, however, she was noticed to have a fever. Dialysis was not done and the patient was sent to [facility]. The patient mentioned she has been having problem with fever and cough that has been going on for about 3 days. The patient describing her cough to be more so, moderate in intensity, not bringing up any sputum. Has been complaining of rigors and chills. No clear chest pain though. No URI symptoms. No nausea, no vomiting. No abdominal pain. No diarrhea. The patient did have a fever 103 degrees Fahrenheit at the outside facility. Chest x-ray with nonspecific findings, possible increased pulmonary vascular finding. The patient did have a normal white count. The patient subsequently has been transferred to [facility] for further management. The patient has been running a fever of 101 degrees Fahrenheit. The patient is currently 99% on room air, though the patient did have a normal white count with lymphopenia. Liver enzymes are normal. CRP is 169. Procalcitonin pending. The patient was started on Rocephin. Infectious Disease was consulted for further management of antibiotic therapy. REVIEW OF SYSTEMS: Positive points have been mentioned in HPI. Rest of systems are negative. PAST MEDICAL HISTORY: End-stage renal disease, on hemodialysis, MRSA bacteremia secondary and also have evidence of endocarditis, diabetes mellitus, heart failure, hyperlipidemia and hypertension. PAST SURGICAL HISTORY: Bilateral cataract surgery. The patient did have a cardiac valve replacement, uterine ablation, multiple pulmonary catheters. SOCIAL HISTORY: No history of smoking, drinking or drug use. FAMILY HISTORY: No pertinent findings noticed. ALLERGIES: ALLERGIES TO CIPRO AND CONTRAST MEDIA. MEDICATIONS: Include the patient is currently on: Tylenol, , Lipitor, Zithromax, Rocephin 2 grams daily. She is on Catapres, Lasix, hydralazine, NovoLog, Levemir, Lopressor, Singulair, Ultram. PHYSICAL EXAMINATION: Blood pressure is 142/77 with a pulse of 118, temperature 100.3, T-max is 101. She is 99% on 2 L nasal cannula. General description is a middle-aged female lying in bed in no distress. No tachypnea or accessory muscles of respiration use. HEENT: Examination shows slight pallor. No scleral icterus. Oral mucous membrane is dry. Neck: Trachea central. No thyromegaly. Lungs: Unlabored breathing, decreased breath sounds. No wheeze or crackles. Heart S1, S2. Regular rate and rhythm. Abdomen soft. No tenderness. No guarding. No rigidity. Extremities: No edema of the feet. Skin examination: No rash or mass palpable. Neurological: Patient is awake, alert, oriented x3. Mood and affect normal. LABS: Hemoglobin is 7.8, white count 5.5. BUN of 61, creatinine 6.62. Liver enzymes are normal. CRP is 169. Procalcitonin is pending. Chest x-ray at an outside facility shows evidence of increased pulmonary vascular congestion. DIAGNOSTIC IMPRESSION AND PLAN: Patient admitted to the hospital with fever and cough, source likely pneumonia with question of viral versus bacteria. In view of the normal white count, lymphopenia, high clinical suspicious for Covid 19/viral pneumonia. However, we will have to keep in mind the patient recently did have endocarditis requiring surgery and cardiac valve placement and endocarditis needs to be considered. PLAN: 1. We will check her for Covid 19 influenza. 2. We will check a urine for Legionella antigen. 3. Continue the patient on Rocephin and Zithromax, we will add vancomycin pharmacy to dose. 4. We will follow on clinical condition and culture to further adjust medication if needed. Thank you for this consultation. We will follow this patient along with you. MMODL / IJN: [id number] /
[2020-06-09] MEDS: FUROSEMIDE 40 MG TAB PO SCH (23:11)
[2020-06-10] MEDS: ACETAMINOPHEN TAB 325 MG TAB PO PRN ×2 (00:03→08:06)
[2020-06-10] MEDS: BENZONATATE 100 MG CAP PO PRN ×2 (06:07→20:56)
[2020-06-10 06:51] LABS: Glucose,Whole Blood 72 mg/dL (75-99)
[2020-06-10 06:52] LABS: Anisocytosis Slight; Basophils % (A) 0 %; Eosinophils % (A) 0 %; HCT 24.7 % (34.0-46.0); HGB 7.9 gm/dL (11.4-16.0); Hypochromasia Moderate; Lymphocytes # (A) 0.1 k/uL (1.0-4.8); Lymphocytes % (A) 5 %; MCH 31.1 pg (25.0-35.0); MCHC 32.2 g/dL (31.0-37.0); MCV 96.6 fL (80.0-100.0); Macrocytosis Slight; Mean Platelet Volume 8.9; Monocytes # (A) 0.2 k/uL (0-1.0); Monocytes % (A) 7 %; Neutrophils # (A) 2.1 k/uL (1.3-7.7); Neutrophils % (A) 85 %; RBC 2.56 m/uL (3.80-5.40); RDW 16.6 % (11.5-15.5); WBC 2.5 k/uL (3.8-10.6)
[2020-06-10 07:01] LABS: Platelet Count 66 k/uL (150-450)
[2020-06-10] MEDS: INSULIN ASPART (NovoLOG) 100 UNIT/ML VIAL SQ SCH ×7 (07:07→20:48)
--- NOTE | 2020-06-10 07:50 | XR ---
EXAMINATION TYPE: XR chest 2V DATE OF EXAM: 06/10/2020 COMPARISON: Chest x-ray 06/09, volume overload /2020 HISTORY: Pneumonia TECHNIQUE: Frontal and lateral views of the chest are obtained. FINDINGS: No evident pneumothorax or pleural effusion. Right jugular central venous catheter, postop changes are again seen. Aorta is dense. Prominence of pulmonary artery. Patchy left midlung density persists, stents are present in the left subclavian region as on prior. IMPRESSION: Perhaps some atelectasis or scarring left midlung, difficult to exclude pneumonia
[2020-06-10] MEDS: PROCHLORPERAZINE 5 MG TAB PO PRN (07:53)
[2020-06-10] MEDS: SILDENAFIL 20 MG TAB PO SCH ×3 (07:54→20:52)
[2020-06-10] MEDS: METOPROLOL TARTRATE 50 MG TAB PO SCH ×2 (07:55→23:41)
[2020-06-10] MEDS: PANTOPRAZOLE 40 MG TABLET PO SCH (07:55)
[2020-06-10] MEDS: FUROSEMIDE 40 MG TAB PO SCH ×2 (07:55→20:52)
[2020-06-10] MEDS: ALBUTEROL HFA INHALER INHALATION PRN ×3 (08:10→19:52)
[2020-06-10] MEDS ORDERED: AZITHROMYCIN 500 MG TAB PO SCH (09:00)
[2020-06-10 09:26] LABS: Glucose,Whole Blood 91 mg/dL (75-99)
[2020-06-10] MEDS: hydrALAZINE HCL 50 MG TAB PO SCH ×3 (10:04→23:41)
[2020-06-10] MEDS: cloNIDine HCL 0.1 MG TAB PO SCH ×3 (10:04→23:41)
[2020-06-10 10:59] LABS: Anion Gap 15.2 mmol/L (4.00-12.00); BUN/Creat Ratio 9.18 Ratio (12.00-20.00); Calcium 8.4 mg/dL (8.7-10.3); Carbon Dioxide 22.8 mmol/L (21.6-31.8); Non-African American GFR(CKD) 9.5 (60.0-200.0); Potassium 4.1 mmol/L (3.5-5.5)
[2020-06-10 11:28] LABS: Glucose,Whole Blood 77 mg/dL (75-99)
[2020-06-10] MEDS ORDERED: VANCOMYCIN 1,250 MG in SODIUM CHLORIDE 0.9% 250 ML IVPB ONE (12:00)
[2020-06-10] MEDS: ONDANSETRON 4 MG/2 ML VIAL IVP PRN ×2 (13:08→22:26)
--- NOTE | 2020-06-10 13:20 | P.PN ---
Subjective Progress Note Date: 06/10/20 Principal diagnosis: This 54-year-old female known to us with ESRD on dialysis Thursday. She dialyzes at the [facility] unit She was sent from there without dialysis because of a temperature of 103 of one day. influenza tests and Covid both are negative. there is some mild dry cough she threw up this morning small amount of mucoid material has a poor appetite. No diarrhea no abdominal pain Her graft is clotted on the left or from the permacath on the right is clear exist site is clear. She is known with diabetes, hypertension liver disease previous history of pancreatitis Denies any nausea vomiting diarrhea abdominal pain. Dysuria frequency She was dialyzed yesterday with 4 L taken off Past Medical History Past Medical History: Blood Disorder, Heart Failure, Diabetes Mellitus, Dialysis, Hyperlipidemia, Hypertension, Liver Disease, Pneumonia, Renal Disease Additional Past Medical History / Comment(s): Bilateral cataracts, recently diagnosed with bilateral retinal hemorrhages, hypertriglyceridemia-induced acute pancreatitis, THEN necrotizing pancreatitis. hemodialysis for acute kidney injury 2 months in 2009 after pancreatic OR, 11/2015 diagnosed w/ chronic kidney disease-hemodialysis -last hemodialysis 06/02/19, IDDM type II, past DKA, UTI, chronic anemia, frequent body cramping, occasional low back pain, carter's palsy x2, past L leg fx, possible liver disease-recent liver bx-results unknown per pt. Objective - Vital Signs Vital signs: Vital Signs Temp 98.1 F 06/10/20 10:00 Pulse 73 06/10/20 10:00 Resp 16 06/10/20 10:00 BP 94/59 06/10/20 10:00 Pulse Ox 92 L 06/10/20 10:00 Intake & Output 06/09/20 06/10/20 06/10/20 18:59 06:59 18:59 Output Total 4000 Balance -4000 Weight 74.843 kg Output: Hemodialysis 4000 Other: Voiding Method Toilet Toilet # Bowel Movements 0 1 On exam awake alert oriented comfortable. HEENT exam no JVP neck is supple no facial asymmetry. Lungs are clear to auscultation good air entry bilaterally Heart sounds unremarkable for any murmur rub gallop Abdomen soft nontender Extremity exam was no edema Neurologically awake alert oriented. Her clotted graft which is not being used on the left upper arm is clean and the permacath exit site is clean and there is no tunnel infection - Labs CBC & Chem 7: 06/10/20 06:13 06/10/20 06:13 Labs: Abnormal Lab Results - Last 24 Hours (Table) 06/09/20 06/09/20 06/09/20 Range/Units 14:30 14:30 14:30 WBC (3.8-10.6) k/uL RBC 2.55 L (3.80-5.40) m/uL Hgb 7.9 L (11.4-16.0) gm/dL Hct 24.2 L (34.0-46.0) % RDW 16.8 H (11.5-15.5) % Plt Count 79 L D (150-450) k/uL Lymphocytes # 0.1 L (1.0-4.8) k/uL Sodium 130 L (137-145) mmol/L Chloride 89 L (98-107) mmol/L Anion Gap (4.00-12.00) mmol/L BUN 61 H (7-17) mg/dL Creatinine 6.62 H (0.52-1.04) mg/dL Est GFR (CKD-EPI)AfAm (60.0-200.0) Est GFR (CKD-EPI)NonAf (60.0-200.0) BUN/Creatinine Ratio (12.00-20.00) Ratio Glucose 171 H (74-99) mg/dL POC Glucose (mg/dL) (75-99) mg/dL Calcium (8.7-10.3) mg/dL C-Reactive Protein 169.0 H (<10.0) mg/L Total Protein 6.1 L (6.3-8.2) g/dL Procalcitonin >100.00 H (0.02-0.09) ng/mL 06/09/20 06/09/20 06/10/20 Range/Units 17:18 20:24 06:13 WBC 2.5 L (3.8-10.6) k/uL RBC 2.56 L (3.80-5.40) m/uL Hgb 7.9 L (11.4-16.0) gm/dL Hct 24.7 L (34.0-46.0) % RDW 16.6 H (11.5-15.5) % Plt Count 66 L (150-450) k/uL Lymphocytes # 0.1 L (1.0-4.8) k/uL Sodium (137-145) mmol/L Chloride (98-107) mmol/L Anion Gap (4.00-12.00) mmol/L BUN (7-17) mg/dL Creatinine (0.52-1.04) mg/dL Est GFR (CKD-EPI)AfAm (60.0-200.0) Est GFR (CKD-EPI)NonAf (60.0-200.0) BUN/Creatinine Ratio (12.00-20.00) Ratio Glucose (74-99) mg/dL POC Glucose (mg/dL) 122 H 131 H (75-99) mg/dL Calcium (8.7-10.3) mg/dL C-Reactive Protein (<10.0) mg/L Total Protein (6.3-8.2) g/dL Procalcitonin (0.02-0.09) ng/mL 06/10/20 06/10/20 Range/Units 06:13 06:50 WBC (3.8-10.6) k/uL RBC (3.80-5.40) m/uL Hgb (11.4-16.0) gm/dL Hct (34.0-46.0) % RDW (11.5-15.5) % Plt Count (150-450) k/uL Lymphocytes # (1.0-4.8) k/uL Sodium (137-145) mmol/L Chloride (98-107) mmol/L Anion Gap 15.20 H (4.00-12.00) mmol/L BUN 45.0 H (7-17) mg/dL Creatinine 4.9 H (0.52-1.04) mg/dL Est GFR (CKD-EPI)AfAm 11.0 L (60.0-200.0) Est GFR (CKD-EPI)NonAf 9.5 L (60.0-200.0) BUN/Creatinine Ratio 9.18 L (12.00-20.00) Ratio Glucose 68 L (74-99) mg/dL POC Glucose (mg/dL) 72 L (75-99) mg/dL Calcium 8.4 L (8.7-10.3) mg/dL C-Reactive Protein (<10.0) mg/L Total Protein (6.3-8.2) g/dL Procalcitonin (0.02-0.09) ng/mL Microbiology - Last 24 Hours (Table) 06/09/20 12:10 Sputum Culture - Preliminary Sputum 06/09/20 14:30 Blood Culture Gram Stain - Preliminary Blood 06/09/20 14:30 Blood Culture - Final Blood Assessment and Plan Assessment: Impression 1. ESRD on dialysis Thursday at the [facility] unit with a permacath 2. Admitted with fever of 103 and cough possible pneumonia,: with Covid 19 nega tive and influenza negative. Blood cultures so far negative 3. Diabetes mellitus with visual blurring 4. Abdominal bloating chronic. 5. Anemia hemoglobin 7.9, she has chronically low hg for last several months Recommendation 1. Continue antibiotics. 2. Next dialysis will be Thursday 3. Check iron saturation last saturation of 27% on 05/14/2020
--- NOTE | 2020-06-10 14:36 | PN ---
PROGRESS NOTE 54-year-old white female. Dr. Coker has seen her for Infectious Disease. This is a 54-year-old with fever of unknown origin seen by Dr. Coker. She had a fever 101, 102. Blood cultures were done. She is lying comfortably, but she has been coughing up some phlegm. She says she thinks she might have pneumonia. White count 5.5, hemoglobin 7.8, BUN 61, creatinine 6.62. We are going to check her for COVID, do urine for Legionella. Place her on Rocephin, Zithromax and vancomycin. Await for blood cultures. She recently had endocarditis and we may need a transesophageal echo which Cardiology will be ordered for just to make sure. MMODL / IJN: [id number] /
[2020-06-10 16:44] LABS: Glucose,Whole Blood 76 mg/dL (75-99)
[2020-06-10 20:06] LABS: Glucose,Whole Blood 86 mg/dL (75-99)
[2020-06-10] MEDS: CYCLOBENZAPRINE 5 MG TAB PO SCH (20:52)
[2020-06-10] MEDS: ATORVASTATIN 40 MG TAB PO SCH (20:52)
[2020-06-10] MEDS: MONTELUKAST 10 MG TAB PO SCH (20:52)
[2020-06-10] MEDS: HYDROcodone/APAP 7.5-325MG 1 EACH TAB PO PRN (20:54)
[2020-06-10 23:13] LABS: % Iron Saturation 70.43 (12.00-45.00)
--- NOTE | 2020-06-10 23:38 | PN ---
PROGRESS NOTE DATE OF SERVICE: 06/10/2020 REASON FOR FOLLOWUP: Fever and bacteremia. INTERVAL HISTORY: Patient is currently afebrile. The patient is breathing comfortably currently on room air. Denies having any chest pain or shortness of breath. The patient's cough has improved. No nausea, no vomiting. No abdominal pain or diarrhea. PHYSICAL EXAMINATION: Blood pressure 101/59, pulse of 69, temperature 97.8. She is 96% on room air. General description: The patient is a middle-aged female lying in bed in no distress. Respiratory system: Unlabored breathing with decreased breath sounds at the base. No wheeze. HEART: S1, S2. Regular rate and rhythm. ABDOMEN: Soft. No tenderness. LABS: Blood culture positive for presumptive MRSA. DIAGNOSTIC IMPRESSION AND PLAN: Patient admitted to the hospital with sepsis with fever now with evidence of MRSA bacteremia in this patient who did have a history of endocarditis status post mitral valve placement and did have dialysis catheter. We will obtain an echocardiogram to make sure the aortic valve is functioning normally. Vancomycin to continue. Rocephin discontinued. Prognosis remains to be guarded in view of recurrent infection. Continue supportive care. MMODL / IJN: [id number] /
[2020-06-10] MEDS: INSULIN DETEMIR (LEVEMIR) 100 UNIT/ML SYR SQ SCH (23:41)
[2020-06-11] MEDS: traMADol 50 MG TAB PO PRN ×2 (02:47→14:59)
[2020-06-11] MEDS: ONDANSETRON 4 MG/2 ML VIAL IVP PRN ×3 (05:06→21:39)
[2020-06-11 06:39] LABS: Glucose,Whole Blood 95 mg/dL (75-99)
[2020-06-11 06:50] LABS: Anisocytosis Slight; Hypochromasia Moderate; MCH 31.2 pg (25.0-35.0); MCHC 32.1 g/dL (31.0-37.0); MCV 97.2 fL (80.0-100.0); Mean Platelet Volume 8.8; Poikilocytosis Slight; RBC 2.88 m/uL (3.80-5.40); RDW 16.4 % (11.5-15.5)
[2020-06-11 06:56] LABS: ALT 30 U/L (4-34); AST 43 U/L (14-36); African American GFR (CKD) 8 (>60 ml/min/1.73 sqM); Albumin 3.9 g/dL (3.5-5.0); Albumin/Globulin Ratio 1.4; Alkaline Phosphatase 95 U/L (38-126); Anion Gap 21 mmol/L; Blood Urea Nitrogen 65 mg/dL (7-17); Calcium 8.7 mg/dL (8.4-10.2); Carbon Dioxide 18 mmol/L (22-30); Chloride 92 mmol/L (98-107); Globulin 2.7 g/dL; Glucose 87 mg/dL (74-99); Non-African American GFR(CKD) 7 (>60 ml/min/1.73 sqM); Potassium 4.6 mmol/L (3.5-5.1); Sodium 131 mmol/L (137-145); Total Bilirubin 1.1 mg/dL (0.2-1.3); Total Protein 6.6 g/dL (6.3-8.2)
[2020-06-11 07:00] LABS: Platelet Count 71 k/uL (150-450)
[2020-06-11 07:01] LABS: Vancomycin,Random 25.8 ug/mL
[2020-06-11 07:32] LABS: Band Neutrophils % 1 %; Eosinophils # (M) 0.06 k/uL (0-0.7); Lymphocytes # (M) 0.27 k/uL (1.0-4.8); Monocytes # (M) 0.42 k/uL (0-1.0); Neutrophils % (M) 74 %; Nucleated Red Blood Cells 0 /100 WBC (0-0); Polychromasia Present; Total Cells Counted 100
[2020-06-11] MEDS: INSULIN ASPART (NovoLOG) 100 UNIT/ML VIAL SQ SCH ×7 (08:48→21:31)
[2020-06-11] MEDS: hydrALAZINE HCL 50 MG TAB PO SCH ×3 (08:58→21:42)
[2020-06-11] MEDS: FUROSEMIDE 40 MG TAB PO SCH ×2 (08:58→21:40)
[2020-06-11] MEDS: PANTOPRAZOLE 40 MG TABLET PO SCH (08:59)
[2020-06-11] MEDS: cloNIDine HCL 0.1 MG TAB PO SCH ×3 (08:59→21:41)
[2020-06-11] MEDS: METOPROLOL TARTRATE 50 MG TAB PO SCH ×2 (08:59→21:41)
[2020-06-11] MEDS: HYDROcodone/APAP 7.5-325MG 1 EACH TAB PO PRN ×2 (09:01→22:38)
[2020-06-11] MEDS: SILDENAFIL 20 MG TAB PO SCH ×3 (09:03→21:44)
--- NOTE | 2020-06-11 10:14 | P.PN ---
Subjective Patient seen in follow-up for end-stage renal disease. Currently on IV vancomycin for MRSA bacteremia. Denies chest pain or shortness of breath. Hemodynamically stable. Vital signs are stable. General: The patient appeared well nourished and normally developed. HEENT: Head exam is unremarkable. Neck is without jugular venous distension. LUNGS: Breath sounds decreased. HEART: Rate and Rhythm are regular. ABDOMEN: Soft, nontender. EXTREMITITES: Trace edema. Objective - Vital Signs Vital signs: Vital Signs Temp 98.1 F 06/11/20 06:56 Pulse 78 06/11/20 06:56 Resp 18 06/11/20 06:56 BP 142/71 06/11/20 06:56 Pulse Ox 93 L 06/11/20 06:56 Intake & Output 06/10/20 06/11/20 06/11/20 18:59 06:59 18:59 Intake Total 540 Balance 540 Intake: Oral 540 Other: Voiding Method Toilet Toilet # Voids 0 # Bowel Movements 0 - Labs CBC & Chem 7: 06/11/20 06:21 06/11/20 06:21 Labs: Abnormal Lab Results - Last 24 Hours (Table) 06/10/20 06/10/20 06/11/20 Range/Units 06:13 14:13 06:21 WBC (3.8-10.6) k/uL RBC (3.80-5.40) m/uL Hgb (11.4-16.0) gm/dL Hct (34.0-46.0) % RDW (11.5-15.5) % Plt Count (150-450) k/uL Lymphocytes # (Manual) (1.0-4.8) k/uL Sodium 131 L (137-145) mmol/L Chloride 92 L (98-107) mmol/L Carbon Dioxide 18 L (22-30) mmol/L Anion Gap 15.20 H (4.00-12.00) mmol/L BUN 45.0 H 65 H (9.0-27.0) mg/dL Creatinine 4.9 H 6.18 H (0.6-1.5) mg/dL Est GFR (CKD-EPI)AfAm 11.0 L (60.0-200.0) Est GFR (CKD-EPI)NonAf 9.5 L (60.0-200.0) BUN/Creatinine Ratio 9.18 L (12.00-20.00) Ratio Glucose 68 L (70-110) mg/dL Calcium 8.4 L (8.7-10.3) mg/dL TIBC 186 L (228-460) ug/dL % Saturation 70.43 H (12.00-45.00) AST 43 H (14-36) U/L 06/11/20 Range/Units 06:21 WBC 3.0 L (3.8-10.6) k/uL RBC 2.88 L (3.80-5.40) m/uL Hgb 9.0 L (11.4-16.0) gm/dL Hct 28.0 L (34.0-46.0) % RDW 16.4 H (11.5-15.5) % Plt Count 71 L (150-450) k/uL Lymphocytes # (Manual) 0.27 L (1.0-4.8) k/uL Sodium (137-145) mmol/L Chloride (98-107) mmol/L Carbon Dioxide (22-30) mmol/L Anion Gap (4.00-12.00) mmol/L BUN (9.0-27.0) mg/dL Creatinine (0.6-1.5) mg/dL Est GFR (CKD-EPI)AfAm (60.0-200.0) Est GFR (CKD-EPI)NonAf (60.0-200.0) BUN/Creatinine Ratio (12.00-20.00) Ratio Glucose (70-110) mg/dL Calcium (8.7-10.3) mg/dL TIBC (228-460) ug/dL % Saturation (12.00-45.00) AST (14-36) U/L Microbiology - Last 24 Hours (Table) 06/09/20 12:10 Gram Stain - Preliminary Sputum Sputum Culture - Preliminary 06/09/20 14:30 Blood Culture Gram Stain - Preliminary Blood Blood Culture - Preliminary Presumptive MRSA 06/09/20 14:30 Blood Culture - Final Blood Assessment and Plan Plan: Assessment: 1. End-stage renal disease maintained on hemodialysis on Thursday schedule via p-cath. 2. MRSA bacteremia maintained on antibiotics. Infectious disease following. 3. Hyponatremia secondary to chronic kidney disease. Hypervolemic. 4. Anemia of chronic kidney disease. 5. Hypertension with chronic kidney disease. Stable. 6. Diabetes mellitus. 7. Metabolic acidosis secondary to chronic kidney disease. 8. Chronic kidney disease mineral bone disease. 9. History of mitral valve replacement in March 2020 at [facility]. Plan: Short hemodialysis treatment today with goal 2 liters ultrafiltration. Another treatment tomorrow per her outpatient schedule. Check phosphorus level. Add Aranesp.
[2020-06-11] MEDS ORDERED: DARBEPOETIN ALFA 40 MCG/0.4 ML SYRINGE SQ SCH (10:30)
[2020-06-11 11:25] LABS: Glucose,Whole Blood 102 mg/dL (75-99)
--- NOTE | 2020-06-11 12:25 | P.CRDCN ---
History of Present Illness Consult date: 06/11/20 History of present illness: CHIEF COMPLAINT: TK HISTORY OF PRESENT ILLNESS: This is a 54-year-old female with a past medical history significant for end-stage renal disease on dialysis, chronic pericardial effusion, hypertension, hyperlipidemia, diabetes mellitus, and pancreatitis. Patient was hospitalized in March 2020 and found to have infective endocarditis with evidence of abscess and vegetation attached to the posterior mitral leaflet with evidence of moderate mitral insufficiency. Patient was transferred to [facility]. She underwent mitral valve replacement with a tissue valve in March 2020. Patient follows in the office with Dr. Tesfaye. Patient presented to the hospital with fevers x 3 days. She has been diagnosed MRSA bacteremia. Hence, cardiology consult was requested for TK. DIAGNOSTICS: Chest xray atelectasis or scarring left midlung. Difficult to exclude pneu monia. Laboratory data: WBC 3.0. Hemoglobin 9.0. Platelet count 71. Sodium 131. Potassium 4.6. BUN 65. Creatinine 6.18. Current home cardiac medications include hydralazine 100 mg 3 times a day, clonidine 0.3 mg 3 times a day, metoprolol 59 g twice a day, Lasix 80 mg twice a day, Lipitor 40 mg daily REVIEW OF SYSTEMS: At the time of my exam: CONSTITUTIONAL: Denies fever or chills. HEENT: Denies blurred vision, vision changes, or eye pain. Denies hemoptysis CARDIOVASCULAR: Denies chest pain, orthopnea, PND or palpitations RESPIRATORY: No shortness of breath. GASTROINTESTINAL: Denies abdominal pain. Denies nausea or vomiting. HEMATOLOGIC: Denies bleeding disorders. GENITOURINARY: Denies any blood in urine. SKIN: Denies pruitis. Denies rash. PHYSICAL EXAM: VITAL SIGNS: Reviewed. GENERAL: Well-developed in no acute distress. HEENT: Head is normocephalic. Pupils are equal, round. Sclerae anicteric. Mucous membranes of the mouth are moist. Neck supple. No JVD or thyromegaly LUNGS: Respirations even and unlabored. Lungs diminished bilaterally. HEART: Regular rate and rhythm. S1 and S2 heard. Systolic murmur noted. ABDOMEN: Soft. Nondistended. Nontender. EXTREMITIES: Normal range of motion. No clubbing or cyanosis. Peripheral pu lses intact. No lower extremity edema NEUROLOGIC: Awake and alert. Oriented x 3. ASSESSMENT: Febrile illness MRSA bacteremia History of infective endocarditis of mitral valve, March 2020 History of mitral valve replacement, March 2020 Chronic pericardial effusion End-stage kidney disease, on hemodialysis Hypertension Hyperlipidemia Diabetes mellitus PLAN: Continue home cardiac medications 2D echo ordered. Await results. Continue antibiotics per Dr. Coker Patient to undergo TK with Dr. Tesfaye, 06/13/2020 Nurse practitioner note has been reviewed by physician. Signing provider agrees with the documented findings, assessment, and plan of care. 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 hemodialysis for acute kidney injury 2 months in 2009 after pancreatic OR, 11/2015 diagnosed w/ chronic kidney disease-hemodialysis /-last hemodialysis 06/02/19, IDDM type II, past DKA, UTI, chronic anemia, frequent body cramping, occasional low back pain, carter's palsy x2, past L leg fx, possible liver disease-recent liver bx-results unknown per pt. History of Any Multi-Drug Resistant Organisms: MRSA Date of last positivie culture/infection: 03/17/20 MDRO Source:: Blood Past Surgical History: Cardiac Valve Replacement, Orthopedic Surgery, Uterine Ablation Additional Past Surgical History / Comment(s): Recent liver biopsy done at [place] but pt states they have never contacted her with the results, 08/26/17 colonoscopy with polypectomy/bx, pancreatic resection at [facility] 2009, bone marrow biopsies X2-last one 05/19/16,. dialysis chest port x 2 with removals, Left arm shunt placement for dialysis - December 2015 and a revision done with shunt. Left forearm Vein Revision - October 2019 Past Anesthesia/Blood Transfusion Reactions: No Reported Reaction Additional Past Anesthesia/Blood Transfusion Reaction / Comment(s): Pt has received blood transfusions without reaction. Past Psychological History: No Psychological Hx Reported Smoking Status: Never smoker Past Alcohol Use History: None Reported Past Drug Use History: None Reported - Past Family History Brother(s) Family Medical History: No Reported History Mother Family Medical History: Cancer Additional Family Medical History / Comment(s): . Father Family Medical History: Hypertension Additional Family Medical History / Comment(s): alcoholism Medications and Allergies Home Medications Medication Instructions Recorded Confirmed Type cloNIDine HCL 0.3 mg PO TID 12/16/16 06/09/20 History Prochlorperazine [Compazine] 5 mg PO BID PRN 10/26/17 06/09/20 History INSULIN LISPRO (humaLOG) [humaLOG] 10 unit SQ AC-TID 07/12/18 06/09/20 History Omeprazole 20 mg PO BID 11/01/18 06/09/20 History hydrALAZINE HCL [Apresoline] 100 mg PO TID 12/14/18 06/09/20 History HYDROcodone/APAP 7.5-325MG [Thomson 1 tab PO TID PRN 11/08/19 06/09/20 History 7.5-325] Montelukast [Singulair] 10 mg PO HS 11/08/19 06/09/20 History Insulin Glargine,Hum.rec.anlog 60 unit SQ HS 12/02/19 06/09/20 History [Basaglar Kwikpen U-100] Albuterol Sulfate [Proair Hfa] 2 puff INHALATION RT-Q6H PRN 01/28/20 06/09/20 History Furosemide [Lasix] 80 mg PO BID 01/28/20 06/09/20 History INSULIN LISPRO (HumaLOG) [humaLOG] See Protocol SQ ACHS 03/17/20 06/09/20 History Sildenafil [Revatio] 20 mg PO TID 04/20/20 06/09/20 History Benzonatate [Tessalon Perles] 100 mg PO TID PRN 05/13/20 06/09/20 History Cyclobenzaprine [Flexeril] 5 mg PO HS 05/13/20 06/09/20 History Promethazine 6.25MG/5Ml [Phenergan 5 mg PO Q6H PRN 05/13/20 06/09/20 History Syrup] traMADol HCL [Ultram] 50 mg PO Q12H PRN 05/13/20 06/09/20 History Atorvastatin [Lipitor] 40 mg PO HS 90 Days #90 tab 05/15/20 06/09/20 Rx Metoprolol Tartrate [Lopressor] 50 mg PO BID 180 Days #180 tab 05/15/20 06/09/20 Rx Lidocaine-Prilocaine Cream [Emla 1 applic TOPICAL DIRECTED PRN 06/09/20 06/09/20 History Cream 2.5%/2.5%] rOPINIRole HCL [Requip] 1 mg PO TID 06/09/20 06/09/20 History Allergies Allergy/AdvReac Type Severity Reaction Status Date / Time ciprofloxacin [From Cipro] AdvReac AFFECTED Verified 06/09/20 11:40 EYESIGHT ciprofloxacin HCl AdvReac AFFECTED Verified 06/09/20 11:40 [From Cipro] EYESIGHT Iodinated Contrast Media AdvReac RENAL Verified 06/09/20 11:40 FAILURE Physical Exam Vitals: Vital Signs Temp Pulse Resp BP Pulse Ox 06/11/20 06:56 98.1 F 78 18 142/71 93 L 06/11/20 00:43 97.9 F 73 14 119/66 92 L 06/10/20 19:00 97.8 F 69 14 101/59 96 06/10/20 14:00 97.5 F L 67 19 114/62 94 L 06/10/20 12:10 94 L Intake and Output 06/10/20 06/11/20 06/11/20 22:59 06:59 14:59 Intake Total 540 Balance 540 Intake: Oral 540 Other: Voiding Method Toilet # Voids 0 # Bowel Movements 0 Results 06/11/20 06:21 06/11/20 06:21 Cardiac Enzymes 06/11/20 Range/Units 06:21 AST 43 H (14-36) U/L CBC 06/11/20 Range/Units 06:21 WBC 3.0 L (3.8-10.6) k/uL RBC 2.88 L (3.80-5.40) m/uL Hgb 9.0 L (11.4-16.0) gm/dL Hct 28.0 L (34.0-46.0) % Plt Count 71 L (150-450) k/uL Comprehensive Metabolic Panel 06/11/20 Range/Units 06:21 Sodium 131 L (137-145) mmol/L Potassium 4.6 (3.5-5.1) mmol/L Chloride 92 L (98-107) mmol/L Carbon Dioxide 18 L (22-30) mmol/L BUN 65 H (7-17) mg/dL Creatinine 6.18 H (0.52-1.04) mg/dL Glucose 87 (74-99) mg/dL Calcium 8.7 (8.4-10.2) mg/dL AST 43 H (14-36) U/L ALT 30 (4-34) U/L Alkaline Phosphatase 95 (38-126) U/L Total Protein 6.6 (6.3-8.2) g/dL Albumin 3.9 (3.5-5.0) g/dL Current Medications Generic Name Dose Route Start Last Admin Trade Name Freq PRN Reason Stop Dose Admin Acetaminophen 650 mg 06/09/20 12:18 06/10/20 08:06 Acetaminophen Tab 325 Mg Tab PO 650 mg Q6HR PRN Administration Fever Hydrocodone Bitart/Acetaminophen 1 each 06/09/20 12:15 06/11/20 09:01 Hydrocodone/Apap 7.5-325mg 1 Each Tab PO 1 each TID PRN Administration Pain Albuterol Sulfate 2 puff 06/09/20 12:15 06/10/20 19:52 Albuterol Hfa Inhaler INHALATION 2 puff RT-Q6H PRN Administration Shortness Of Breath Atorvastatin Calcium 40 mg 06/09/20 21:00 06/10/20 20:52 Atorvastatin 40 Mg Tab PO 40 mg HS ANNI Administration Benzonatate 100 mg 06/09/20 12:15 06/10/20 20:56 Benzonatate 100 Mg Cap PO 100 mg TID PRN Administration Cough Clonidine 0.3 mg 06/09/20 16:00 06/11/20 08:59 Clonidine Hcl 0.1 Mg Tab PO 0.3 mg TID ANNI Administration Cyclobenzaprine HCl 5 mg 06/09/20 21:00 06/10/20 20:52 Cyclobenzaprine 5 Mg Tab PO 5 mg HS ANNI Administration Darbepoetin Drew 40 mcg 06/11/20 10:30 06/11/20 10:58 Darbepoetin Drew 40 Mcg/0.4 Ml Syringe SQ 40 mcg Q7D ANNI Administration Furosemide 80 mg 06/09/20 21:00 06/11/20 08:58 Furosemide 40 Mg Tab PO 80 mg BID ANNI Administration Hydralazine HCl 100 mg 06/09/20 16:00 06/11/20 08:58 Hydralazine Hcl 50 Mg Tab PO 100 mg TID ANNI Administration Insulin Aspart 10 unit 06/09/20 12:30 06/11/20 08:48 Insulin Aspart (Novolog) 100 Unit/Ml Vial SQ Not Given AC-TID ANNI Insulin Aspart 0 unit 06/09/20 12:30 06/11/20 08:49 Insulin Aspart (Novolog) 100 Unit/Ml Vial SQ Not Given ACHS [facility] Protocol Insulin Detemir 60 unit 06/09/20 21:00 06/10/20 23:41 Insulin Detemir (Levemir) 100 Unit/Ml Syr SQ Not Given HS ANNI Lidocaine/Prilocaine 1 applic 06/09/20 12:15 Lidocaine-Prilocaine 2.5-2.5% Cream 5 Gm Tube TOPICAL DIRECTED PRN PORT ACCESS- DIALYSIS Metoprolol Tartrate 50 mg 06/09/20 21:00 06/11/20 08:59 Metoprolol Tartrate 50 Mg Tab PO 50 mg BID ANNI Administration Miscellaneous Information 1 each 06/09/20 12:10 Pneumonia Protocol Utilized 1 Each Misc PO ONCE PRN Per Protocol Miscellaneous Information 1 each 06/09/20 14:55 Vancomycin Iv Per Pharmacy 1 Each Misc MISCELLANE DIRECTED PRN Per Protocol Protocol Montelukast Sodium 10 mg 06/09/20 21:00 06/10/20 20:52 Montelukast 10 Mg Tab PO 10 mg HS ANNI Administration Ondansetron HCl 4 mg 06/10/20 13:05 06/11/20 11:03 Ondansetron 4 Mg/2 Ml Vial IVP 4 mg Q6HR PRN Administration Nausea And Vomiting Pantoprazole Sodium 40 mg 06/10/20 07:30 06/11/20 08:59 Pantoprazole 40 Mg Tablet PO 40 mg DAILY@0730 ANNI Administration Prochlorperazine Maleate 5 mg 06/09/20 12:15 06/10/20 07:53 Prochlorperazine 5 Mg Tab PO 5 mg BID PRN Administration Nausea Promethazine HCl 5 mg 06/09/20 12:15 06/09/20 17:58 Promethazine Hcl 6.25 Mg/5 Ml Cup PO 5 mg Q6H PRN Administration Cough Ropinirole HCl 1 mg 06/09/20 16:00 06/11/20 09:00 Ropinirole Hcl 1 Mg Tab PO 1 mg TID ANNI Administration Sildenafil Citrate 20 mg 06/09/20 16:00 06/11/20 09:03 Sildenafil 20 Mg Tab PO 20 mg TID ANNI Administration Tramadol HCl 50 mg 06/09/20 12:15 06/11/20 02:47 Tramadol 50 Mg Tab PO 50 mg Q12H PRN Administration Pain Intake and Output 06/10/20 06/11/20 06/11/20 22:59 06:59 14:59 Intake Total 540 Balance 540 Intake: Oral 540 Other: Voiding Method Toilet # Voids 0 # Bowel Movements 0 06/11/20 06:21 06/11/20 06:21
--- NOTE | 2020-06-11 13:57 | P.PN ---
Subjective Progress Note Date: 06/11/20 HISTORY OF PRESENT ILLNESS The 54-year-old female patient treated for fever and bacteremia. Blood culture presumptive for MRSA. Patient does have history of endocarditis status post mitral valve replacement and did have dialysis catheter. Echocardiogram is ordered and report is pending. Patient complains of cough with clear sputum production. Sputum culture in progress. Patient states her breathing is okay. She states she had some chest pain last night but none at this time. No nausea or vomiting. No abdominal pain or diarrhea. Cardiology is plan for TK on Thursday. PHYSICAL EXAMINATION Gen: This is a 54-year-old female. She appears to be in no acute distress. HEENT: Head is atraumatic, normocephalic. Pupils equal, round. Sclerae is anicteric. NECK: Supple. No JVD. No lymphadenopathy. LUNGS: Clear to auscultation. No wheezes or rhonchi. No intercostal re tractions. HEART: Regular rate and rhythm. ABDOMEN: Soft. Bowel sounds are present. No masses. No tenderness. EXTREMITIES: No pedal edema. No calf tenderness. NEUROLOGICAL: Patient is awake, alert and oriented x3. ASSESSMENT MRSA bacteremia suspected, blood culture presumptive MRSA PLAN Continue vancomycin, pharmacy dosing Repeat blood culture will be ordered for tomorrow morning Follow sputum culture TK scheduled on Thursday Continue supportive care. The above dictated assessment and findings were discussed with Dr. Coker. The impression and plan of care have been directed as dictated. Otilia Coffey nurse practitioner acting as scribe for Dr. Coker. Objective - Vital Signs Vital signs: Vital Signs Temp 98.1 F 06/11/20 06:56 Pulse 78 06/11/20 06:56 Resp 18 06/11/20 06:56 BP 142/71 06/11/20 06:56 Pulse Ox 93 L 06/11/20 06:56 Intake & Output 06/10/20 06/11/20 06/11/20 18:59 06:59 18:59 Intake Total 540 Balance 540 Intake: Oral 540 Other: Voiding Method Toilet Toilet # Voids 0 # Bowel Movements 0 - Labs CBC & Chem 7: 06/11/20 06:21 06/11/20 06:21 Labs: Abnormal Lab Results - Last 24 Hours (Table) 06/10/20 06/10/20 06/11/20 Range/Units 06:13 14:13 06:21 WBC (3.8-10.6) k/uL RBC (3.80-5.40) m/uL Hgb (11.4-16.0) gm/dL Hct (34.0-46.0) % RDW (11.5-15.5) % Plt Count (150-450) k/uL Lymphocytes # (Manual) (1.0-4.8) k/uL Sodium 131 L (137-145) mmol/L Chloride 92 L (98-107) mmol/L Carbon Dioxide 18 L (22-30) mmol/L Anion Gap 15.20 H (4.00-12.00) mmol/L BUN 45.0 H 65 H (9.0-27.0) mg/dL Creatinine 4.9 H 6.18 H (0.6-1.5) mg/dL Est GFR (CKD-EPI)AfAm 11.0 L (60.0-200.0) Est GFR (CKD-EPI)NonAf 9.5 L (60.0-200.0) BUN/Creatinine Ratio 9.18 L (12.00-20.00) Ratio Glucose 68 L (70-110) mg/dL Calcium 8.4 L (8.7-10.3) mg/dL TIBC 186 L (228-460) ug/dL % Saturation 70.43 H (12.00-45.00) AST 43 H (14-36) U/L 06/11/20 Range/Units 06:21 WBC 3.0 L (3.8-10.6) k/uL RBC 2.88 L (3.80-5.40) m/uL Hgb 9.0 L (11.4-16.0) gm/dL Hct 28.0 L (34.0-46.0) % RDW 16.4 H (11.5-15.5) % Plt Count 71 L (150-450) k/uL Lymphocytes # (Manual) 0.27 L (1.0-4.8) k/uL Sodium (137-145) mmol/L Chloride (98-107) mmol/L Carbon Dioxide (22-30) mmol/L Anion Gap (4.00-12.00) mmol/L BUN (9.0-27.0) mg/dL Creatinine (0.6-1.5) mg/dL Est GFR (CKD-EPI)AfAm (60.0-200.0) Est GFR (CKD-EPI)NonAf (60.0-200.0) BUN/Creatinine Ratio (12.00-20.00) Ratio Glucose (70-110) mg/dL Calcium (8.7-10.3) mg/dL TIBC (228-460) ug/dL % Saturation (12.00-45.00) AST (14-36) U/L Microbiology - Last 24 Hours (Table) 06/09/20 12:10 Gram Stain - Preliminary Sputum Sputum Culture - Preliminary 06/09/20 14:30 Blood Culture Gram Stain - Preliminary Blood Blood Culture - Preliminary Presumptive MRSA 06/09/20 14:30 Blood Culture - Final Blood
[2020-06-11] MEDS: ALBUTEROL HFA INHALER INHALATION PRN (15:44)
[2020-06-11 16:35] LABS: Glucose,Whole Blood 96 mg/dL (75-99)
[2020-06-11] MEDS: BENZONATATE 100 MG CAP PO PRN (17:09)
--- NOTE | 2020-06-11 18:15 | PN ---
PROGRESS NOTE A 54-year-old with fever and bacteremia. Blood culture presumptive for MRSA. History endocarditis, mitral valve replacement. Sputum culture in progress. Cardiology is going to do a ANTWAN on Thursday. Continue with broad-spectrum antibiotics. Repeat blood cultures were done yesterday and pending. Lungs are clear. Heart regular rate and rhythm. Abdomen is soft. Hematology negative Homans. ASSESSMENT: Methicillin resistant Staphylococcus aureus bacteremia, suspected. Blood culture, presumptive Methicillin resistant Staphylococcus aureus. Will have to rule out endocarditis. Continue vancomycin. Antwan will be ordered. End-stage renal disease. Continue dialysis as mentioned. Continue current treatments. Prognosis guarded. MMODL / IJN: [id number] /
[2020-06-11 21:02] LABS: Glucose,Whole Blood 129 mg/dL (75-99)
[2020-06-11] MEDS: INSULIN DETEMIR (LEVEMIR) 100 UNIT/ML SYR SQ SCH (21:27)
[2020-06-11] MEDS: CYCLOBENZAPRINE 5 MG TAB PO SCH (21:40)
[2020-06-11] MEDS: ATORVASTATIN 40 MG TAB PO SCH (21:40)
[2020-06-11] MEDS: MONTELUKAST 10 MG TAB PO SCH (21:41)
[2020-06-12] MEDS: PROCHLORPERAZINE 5 MG TAB PO PRN (00:17)
[2020-06-12] MEDS: ONDANSETRON 4 MG/2 ML VIAL IVP PRN (03:13)
[2020-06-12] MEDS: hydrALAZINE HCL 50 MG TAB PO SCH ×4 (07:15→21:33)
[2020-06-12] MEDS: METOPROLOL TARTRATE 50 MG TAB PO SCH ×3 (07:16→21:33)
[2020-06-12] MEDS: PANTOPRAZOLE 40 MG TABLET PO SCH (07:16)
[2020-06-12] MEDS: FUROSEMIDE 40 MG TAB PO SCH ×2 (07:17→20:44)
[2020-06-12] MEDS: cloNIDine HCL 0.1 MG TAB PO SCH ×3 (07:17→21:33)
[2020-06-12 07:18] LABS: Glucose,Whole Blood 134 mg/dL (75-99)
[2020-06-12] MEDS: INSULIN ASPART (NovoLOG) 100 UNIT/ML VIAL SQ SCH ×7 (07:30→20:43)
[2020-06-12] MEDS: SILDENAFIL 20 MG TAB PO SCH ×3 (07:31→20:44)
[2020-06-12 11:27] LABS: Glucose,Whole Blood 160 mg/dL (75-99)
--- NOTE | 2020-06-12 11:29 | P.PN ---
Subjective Patient seen in follow-up for end-stage renal disease. Currently on IV vancomycin for MRSA bacteremia. Denies chest pain or shortness of breath. Hemodynamically stable. Scheduled for TK tomorrow. Edema improved Vital signs are stable. General: The patient appeared well nourished and normally developed. HEENT: Head exam is unremarkable. Neck is without jugular venous distension. LUNGS: Breath sounds decreased. HEART: Rate and Rhythm are regular. ABDOMEN: Soft, nontender. EXTREMITITES: No edema. Objective - Vital Signs Vital signs: Vital Signs Temp 97.9 F 06/12/20 08:00 Pulse 66 06/12/20 08:00 Resp 18 06/12/20 08:00 BP 107/49 06/12/20 08:00 Pulse Ox 93 L 06/12/20 08:00 Intake & Output 06/11/20 06/12/20 06/12/20 18:59 06:59 18:59 Intake Total 100 Output Total 1999 Balance -1999 100 Intake: Oral 100 Output: Hemodialysis 1999 Other: # Voids 2 - Labs CBC & Chem 7: 06/11/20 06:21 06/11/20 06:21 Labs: Abnormal Lab Results - Last 24 Hours (Table) 06/11/20 06/12/20 06/12/20 Range/Units 20:28 06:45 07:12 POC Glucose (mg/dL) 129 H 134 H (75-99) mg/dL Phosphorus 5.4 H (2.4-5.1) mg/dL Microbiology - Last 24 Hours (Table) 06/09/20 12:10 Gram Stain - Final Sputum Sputum Culture - Final 06/10/20 14:13 Blood Culture Gram Stain - Preliminary Blood Blood Culture - Preliminary Presumptive MRSA 06/09/20 14:30 Blood Culture Gram Stain - Final Blood Blood Culture - Final Methicillin resist S. aureus 06/10/20 14:13 Blood Culture - Final Blood Assessment and Plan Plan: Assessment: 1. End-stage renal disease maintained on hemodialysis on Thursday schedule via p-cath. 2. MRSA bacteremia maintained on antibiotics. Infectious disease following. 3. Hyponatremia secondary to chronic kidney disease. Hypervolemic. 4. Anemia of chronic kidney disease. Maintained on Aranesp. 5. Hypertension with chronic kidney disease. Stable. 6. Diabetes mellitus. 7. Metabolic acidosis secondary to chronic kidney disease. Expect improvement postdialysis. 8. Chronic kidney disease mineral bone disease. Phosphorous 5.4. 9. History of mitral valve replacement in March 2020 at [facility]. Plan: Hemodialysis today. Add PhosLo with meals. TK tomorrow.
[2020-06-12] MEDS ORDERED: VANCOMYCIN 1,250 MG in SODIUM CHLORIDE 0.9% 250 ML IVPB ONE (11:30)
--- NOTE | 2020-06-12 12:58 | P.PN ---
Subjective Progress Note Date: 06/12/20 CHIEF COMPLAINT: TK HISTORY OF PRESENT ILLNESS: 06/11/2020 This is a 54-year-old female with a past medical history significant for end- stage renal disease on dialysis, chronic pericardial effusion, hypertension, hyperlipidemia, diabetes mellitus, and pancreatitis. Patient was hospitalized in March 2020 and found to have infective endocarditis with evidence of abscess and vegetation attached to the posterior mitral leaflet with evidence of moderate mitral insufficiency. Patient was transferred to [facility]. She underwent mitral valve replacement with a tissue valve in March 2020. Patient follows in the office with Dr. Tesfaye. Patient presented to the hospital with fevers x 3 days. She has been diagnosed MRSA bacteremia. Hence, cardiology consult was requested for TK. 06/12/2020 Patient examined this morning at the bedside. Cultures are positive for MRSA. Repeat cultures are positive for presumptive MRSA. She remains on antibiotics and is being followed by infectious disease. Blood pressure 107/49. Heart rate in the 60s. She is afebrile. She is on room air with oxygen saturations greater than 92%. PHYSICAL EXAM: VITAL SIGNS: Reviewed. GENERAL: Well-developed in no acute distress. HEENT: Head is normocephalic. Pupils are equal, round. Sclerae anicteric. Mucous membranes of the mouth are moist. Neck supple. No JVD or thyromegaly LUNGS: Respirations even and unlabored. Lungs diminished bilaterally. HEART: Regular rate and rhythm. S1 and S2 heard. Systolic murmur noted. EXTREMITIES: Normal range of motion. No clubbing or cyanosis. Peripheral pulses intact. No lower extremity edema ASSESSMENT: Febrile illness MRSA bacteremia History of infective endocarditis of mitral valve, March 2020 History of mitral valve replacement, March 2020 Chronic pericardial effusion End-stage kidney disease, on hemodialysis Hypertension Hyperlipidemia Diabetes mellitus PLAN: Continue home cardiac medications Continue antibiotics per Dr. Coker Patient to undergo TK with Dr. Tesfaye, 06/13/2020 Nurse practitioner note has been reviewed by physician. Signing provider agrees with the documented findings, assessment, and plan of care. Objective - Vital Signs Vital signs: Vital Signs Temp 97.9 F 06/12/20 08:00 Pulse 66 06/12/20 08:00 Resp 18 06/12/20 08:00 BP 107/49 06/12/20 08:00 Pulse Ox 93 L 06/12/20 08:00 Intake & Output 06/11/20 06/12/20 06/12/20 18:59 06:59 18:59 Intake Total 100 Output Total 1999 Balance -1999 100 Intake: Oral 100 Output: Hemodialysis 1999 Other: # Voids 2 - Labs CBC & Chem 7: 06/11/20 06:21 06/11/20 06:21 Labs: Abnormal Lab Results - Last 24 Hours (Table) 06/11/20 06/11/20 06/12/20 Range/Units 11:24 20:28 06:45 POC Glucose (mg/dL) 102 H 129 H (75-99) mg/dL Phosphorus 5.4 H (2.4-5.1) mg/dL 06/12/20 Range/Units 07:12 POC Glucose (mg/dL) 134 H (75-99) mg/dL Phosphorus (2.4-5.1) mg/dL Microbiology - Last 24 Hours (Table) 06/09/20 12:10 Gram Stain - Final Sputum Sputum Culture - Final 06/10/20 14:13 Blood Culture Gram Stain - Preliminary Blood Blood Culture - Preliminary Presumptive MRSA 06/09/20 14:30 Blood Culture Gram Stain - Final Blood Blood Culture - Final Methicillin resist S. aureus 06/10/20 14:13 Blood Culture - Final Blood
[2020-06-12] MEDS: CALCIUM ACETATE 667 MG TAB PO SCH ×2 (14:59→17:07)
[2020-06-12 16:43] LABS: Glucose,Whole Blood 241 mg/dL (75-99)
--- NOTE | 2020-06-12 18:30 | PN ---
PROGRESS NOTE DATE OF SERVICE: 06/12/2020 REASON FOR FOLLOWUP: MRSA bacteremia and concern about endocarditis. INTERVAL HISTORY: The patient is currently afebrile. The patient is feeling better, breathing comfortably. The patient denies having any chest pain. Occasional cough. No abdominal pain or diarrhea. PHYSICAL EXAMINATION: Blood pressure 123/64 with a pulse of 71, temperature 97.9. She is 100% on room air. General description is a middle-aged female lying in bed in no distress. RESPIRATORY SYSTEM: Unlabored breathing. Clear to auscultation anteriorly. HEART: S1, S2. Regular rate and rhythm. ABDOMEN: Soft. No tenderness. LABS: Blood culture from 06/10 is positive. DIAGNOSTIC IMPRESSION AND PLAN: Patient with methicillin-resistant Staphylococcus aeruginosa bacteremia with concern about possible endocarditis. Blood culture was repeated today and will be repeated daily to document clearance of bacteremia. Waiting for TK hopefully to be completed tomorrow and continue supportive care. MMODL / IJN: [id number] /
[2020-06-12] MEDS: HYDROcodone/APAP 7.5-325MG 1 EACH TAB PO PRN (19:32)
--- NOTE | 2020-06-12 19:41 | PN ---
PROGRESS NOTE This is a 55-year-old white female who was supposed to get a transesophageal echo for positive blood cultures x2 with presumptive MRSA. Apparently TK is ordered for her soon. I have not seen the results of it if it was done today. Temperature 97.9, pulse 66, respirations 16 to 18, blood pressure 107/49, oxygenation 92% to 93%. CARDIOVASCULAR: S1, S2. LUNGS: Clear. GI: Soft. White count is 3, hemoglobin 9, BUN 65, creatinine 6.18. ASSESSMENT: 1. End-stage renal disease. 2. Methicillin-resistant Staphylococcus aeruginosa bacteremia. Remains on IV vancomycin. Wait for TK. If positive, will possibly be transferred down to [place], where she had surgery on her mitral valve replacement for infected valve back in March. MMSALAZARL / IJN: [id number] /
[2020-06-12] MEDS: ALBUTEROL HFA INHALER INHALATION PRN (20:34)
[2020-06-12 20:36] LABS: Glucose,Whole Blood 178 mg/dL (75-99)
[2020-06-12] MEDS: INSULIN DETEMIR (LEVEMIR) 100 UNIT/ML SYR SQ SCH (20:43)
[2020-06-12] MEDS: ATORVASTATIN 40 MG TAB PO SCH (20:44)
[2020-06-12] MEDS: CYCLOBENZAPRINE 5 MG TAB PO SCH (20:44)
[2020-06-12] MEDS: MONTELUKAST 10 MG TAB PO SCH (20:44)
[2020-06-12] MEDS: BENZONATATE 100 MG CAP PO PRN (22:57)
[2020-06-13] MEDS: HYDROcodone/APAP 7.5-325MG 1 EACH TAB PO PRN ×2 (01:25→19:20)
[2020-06-13 03:22] LABS: Glucose,Whole Blood 59 mg/dL (75-99)
[2020-06-13 03:32] LABS: Glucose,Whole Blood 87 mg/dL (75-99)
[2020-06-13 04:31] LABS: Glucose,Whole Blood 74 mg/dL (75-99)
[2020-06-13 06:49] LABS: Glucose,Whole Blood 57 mg/dL (75-99)
[2020-06-13] MEDS ORDERED: DEXTROSE 50% SYRINGE 50 ML IVP ONE (06:53)
[2020-06-13] MEDS: INSULIN ASPART (NovoLOG) 100 UNIT/ML VIAL SQ SCH ×7 (07:02→21:20)
[2020-06-13] MEDS: CALCIUM ACETATE 667 MG TAB PO SCH ×3 (07:35→17:31)
[2020-06-13] MEDS: PANTOPRAZOLE 40 MG TABLET PO SCH (07:36)
[2020-06-13 07:37] LABS: Glucose,Whole Blood 137 mg/dL (75-99)
[2020-06-13] MEDS: FUROSEMIDE 40 MG TAB PO SCH ×2 (07:41→21:21)
[2020-06-13] MEDS: cloNIDine HCL 0.1 MG TAB PO SCH ×3 (07:42→21:20)
[2020-06-13] MEDS: hydrALAZINE HCL 50 MG TAB PO SCH ×3 (07:42→21:20)
[2020-06-13] MEDS: METOPROLOL TARTRATE 50 MG TAB PO SCH ×2 (07:42→21:20)
[2020-06-13] MEDS: SILDENAFIL 20 MG TAB PO SCH ×3 (07:44→21:21)
[2020-06-13] MEDS ORDERED: fentaNYL (PF) 50 MCG/ML 2 ML AMP ONE (08:36)
[2020-06-13] MEDS ORDERED: BENZOCAINE SPRAY 1 CAN MUCOUS MEM ONE (09:00)
[2020-06-13] MEDS ORDERED: SODIUM CHLORIDE 0.9% 500 ML 500 ML IV ONE (09:01)
[2020-06-13] MEDS ORDERED: fentaNYL (PF) 50 MCG/ML 2 ML AMP IVP ONE (09:07)
[2020-06-13] MEDS ORDERED: MIDAZOLAM 2 MG/2 ML VIAL IVP ONE (09:07)
--- NOTE | 2020-06-13 09:19 | P.PN ---
Subjective Patient seen in follow-up for end-stage renal disease. Currently on IV vancomycin for MRSA bacteremia. Denies chest pain or shortness of breath. Hemodynamically stable. Scheduled for TK today. Edema improved. 2 L UF yesterday. Vital signs are stable. General: The patient appeared well nourished and normally developed. HEENT: Head exam is unremarkable. Neck is without jugular venous distension. LUNGS: Breath sounds decreased. HEART: Rate and Rhythm are regular. ABDOMEN: Soft, nontender. EXTREMITITES: No edema. Objective - Vital Signs Vital signs: Vital Signs Temp 98.2 F 06/13/20 07:36 Pulse 72 06/13/20 07:36 Resp 18 06/13/20 07:36 BP 124/65 06/13/20 07:36 Pulse Ox 96 06/13/20 07:36 Intake & Output 06/12/20 06/13/20 06/13/20 18:59 06:59 18:59 Output Total 1999 Balance -1999 Output: Hemodialysis 1999 Other: Voiding Method Toilet Toilet # Voids 0 0 # Bowel Movements 0 - Labs CBC & Chem 7: 06/11/20 06:21 06/11/20 06:21 Labs: Abnormal Lab Results - Last 24 Hours (Table) 06/12/20 06/12/20 06/12/20 Range/Units 06:45 11:21 16:38 POC Glucose (mg/dL) 160 H 241 H (75-99) mg/dL Phosphorus 5.4 H (2.4-5.1) mg/dL 06/12/20 06/13/20 06/13/20 Range/Units 20:34 03:08 04:29 POC Glucose (mg/dL) 178 H 59 L 74 L (75-99) mg/dL Phosphorus (2.4-5.1) mg/dL 06/13/20 06/13/20 Range/Units 06:47 07:35 POC Glucose (mg/dL) 57 L 137 H (75-99) mg/dL Phosphorus (2.4-5.1) mg/dL Microbiology - Last 24 Hours (Table) 06/10/20 14:13 Blood Culture Gram Stain - Final Blood Blood Culture - Final Methicillin resist S. aureus 06/09/20 12:10 Gram Stain - Final Sputum Sputum Culture - Final Assessment and Plan Plan: Assessment: 1. End-stage renal disease maintained on hemodialysis on Thursday schedule via p-cath. 2. MRSA bacteremia maintained on antibiotics. Infectious disease following. 3. Hyponatremia secondary to chronic kidney disease. Hypervolemic. 4. Anemia of chronic kidney disease. Maintained on Aranesp. 5. Hypertension with chronic kidney disease. Stable. 6. Diabetes mellitus. 7. Metabolic acidosis secondary to chronic kidney disease. Expect improvement postdialysis. 8. Chronic kidney disease mineral bone disease. Phosphorous 5.4. Maintained on PhosLo. 9. History of mitral valve replacement in March 2020 at [facility]. Plan: Hemodialysis tomorrow. TK today. Monitor vancomycin levels. Dose to be adjusted for renal function. Target level near 15-20.
--- NOTE | 2020-06-13 11:38 | CDI ---
Documentation Clarification Form Date: 06/13/2020 11:20:51 AM From: Miladis Urbano CCS, CCDS Admit Date: 06/09/2020 12:10:00 PM Patient Name: Sara Desouza Visit Number: [id number] Discharge Date: ATTENTION: The Clinical Documentation Specialists (CDI) and [facility] Coding Staff appreciate your assistance in clarifying documentation. Please respond to the clarification below the line at the bottom and electronically sign. The CDI & [facility] Coding staff will review the response and follow-up if needed. Please note: Queries are made part of the Legal Health Record. If you have any questions, please contact the author of this message via ITS. Dr. David Bragg: Sepsis is documented in the 06/10 Infectious Disease Consult: "Patient admitted to the hospital with sepsis with fever now with evidence of MRSA." Sepsis has not been documented in subsequent notes. History/Risk Factors: Endocarditis on mitral valve status post Mitral Valve Replacement in March, at [facility]. Hypertension, DM, ESRD on HD, CHF, Liver Disease, Necrotizing Pancreatitis, Pneumonia, UTI, Chronic Anemia and MRSA. Clinical Indicators: Presented to the ED via EMS on 06/09, transferred from [facility] where she presented with cough & fever x3 days. ED Impression: Acute febrile illness, Pneumonia, Chronic renal failure syndrome. 06/09 VS: T 99.5 - 101.3^, P 92, R 18 - 20; BP 112/57 - 108/61; PO 98 2Lnc 06/09 LAB: WBC (5.5), RBC 2.55*, Hgb 7.9*, Hct 24.2*, Pl Ct 79*, Lymph 0.1*, BUN 61^, Cr 6.62^, Gluc 171^ Lactic Acid not done. COVID: negative Influenza A/B: negative 06/09 Sputum Culture: Final: Negative. 06/09 Blood Culture: Final neg. Repeat: Final: MRSA. 06/10 Blood Culture: Final: negative. Repeat: Final: MRSA. 06/12 Blood Culture: preliminary: neg after 24 hrs. 06/10 LAB: WBC 2.5*, RBC 2.56*, Hgb 7.9*, Hct 24.7*, Pl Ct 66* RAD: CXR: Perhaps some atelectasis or scarring left midlung, difficult to exclude pneumonia. Treatment 06/09: po Tylenol, IV Azithromycin, IV Rocephin, INH Ventolin, IV Vancomycin, O2 2Lnc ID Consult 06/09: Admit with fever and cough, source likely pneumonia with question of viral vs bacteria. In view of normal WBC, Lymphopenia, high clinical suspicion for COVID 19/viral pneumonia. Patient did recently have endocarditis. Endocarditis needs to be considered. In your professional opinion, please clarify if these findings signify one of the following conditions, whether the condition is POA, and cause, if known: Sepsis ruled out Sepsis ruled in: o with Severe Sepsis, please specify associated condition: Other, please specify Unable to determine Present on Admission o Yes o No Identify the (suspected) organism Link or clarify if there is associated (due to/with): o Organ failure, please specify: (Last Revision: August 2017) MTDD
--- NOTE | 2020-06-13 11:46 | CDI ---
Documentation Clarification Form Date: 06/13/2020 11:39:34 AM From: Miladis Urbano CCS, CCDS Admit Date: 06/09/2020 12:10:00 PM Patient Name: Sara Desouza Visit Number: [id number] Discharge Date: ATTENTION: The Clinical Documentation Specialists (CDI) and [facility] Coding Staff appreciate your assistance in clarifying documentation. Please respond to the clarification below the line at the bottom and electronically sign. The CDI & [facility] Coding staff will review the response and follow-up if needed. Please note: Queries are made part of the Legal Health Record. If you have any questions, please contact the author of this message via ITS. Dr. David Bragg: Pneumonia was documented in the 06/09 ED Note, the 06/09 Nephrology Consult, the 06/09 History & Physical, the 06/09 Infectious Disease Consult, the 06/11 Cardiology Consult and subsequent Progress Notes on 06/10. Pneumonia has not been documented in subsequent progress notes. 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 Hypertension, DM, ESRD on HD, CHF, Liver Disease, Necrotizing Pancreatitis, Pneumonia, UTI, Chronic Anemia and MRSA. Clinical Indicators: Presented to the ED via EMS on 06/09, transferred from [facility] where she presented with cough & fever x3 days. ED Impression: Acute febrile illness, Pneumonia, Chronic renal failure syndrome. Per the 06/09 History & Physical: Possible pneumonia. 06/09 VS: T 99.5 - 101.3^, P 92, R 18 - 20; BP 112/57 - 108/61; PO 98 2Lnc 06/09 LAB: WBC (5.5), RBC 2.55*, Hgb 7.9*, Hct 24.2*, Pl Ct 79*, Lymph 0.1*, BUN 61^, Cr 6.62^, Gluc 171^ Lactic Acid not done. COVID: negative Influenza A/B: negative 06/09 Sputum Culture: Final: Negative. 06/09 Blood Culture: Final neg. Repeat: Final: MRSA. 06/10 Blood Culture: Final: negative. Repeat: Final: MRSA. 06/12 Blood Culture: preliminary: neg after 24 hrs. 06/10 LAB: WBC 2.5*, RBC 2.56*, Hgb 7.9*, Hct 24.7*, Pl Ct 66* RAD: CXR: Perhaps some atelectasis or scarring left midlung, difficult to exclude pneumonia. Treatment 06/09: po Tylenol, IV Azithromycin, IV Rocephin, INH Ventolin, IV Vancomycin, O2 2Lnc ID Consult 06/09: Admit with fever and cough, source likely pneumonia with question of viral vs bacteria. In view of normal WBC, Lymphopenia, high clinical suspicion for COVID 19/viral pneumonia. Patient did recently have endocarditis. Endocarditis needs to be considered. In order to capture the severity of condition, please clarify the following condition: Pneumonia is ruled out Pneumonia is ruled in, please specify type: Bacterial Pneumonia, specify causal organism (if known) o Gram Negative Pneumonia o Due to Staph o Other bacteria (please specify) Viral Pneumonia, specify casual organism (if known) Healthcare Acquired Pneumonia/Pneumonia, unspecified Other, please specify Unable to determine (Last Revision: August 2017) MTDD
[2020-06-13 11:47] LABS: Glucose,Whole Blood 65 mg/dL (75-99)
[2020-06-13 12:24] LABS: Glucose,Whole Blood 71 mg/dL (75-99)
--- NOTE | 2020-06-13 15:01 | ECHOT ---
TRANSESOPHAGEAL ECHOCARDIOGRAM DATE OF SERVICE: June 13, 2020 PERFORMING PHYSICIAN: Urbano Tesfaye MD. PROCEDURE PERFORMED: Transesophageal echocardiogram. INDICATION: Rule out endocarditis. COMPLICATION: None. LEVEL OF SEDATION: Moderate with sedation length of about 15 minutes. PROCEDURE DESCRIPTION: After obtaining an informed consent, explaining the procedure, benefits, risks, complications and alternatives, the patient was brought to the transesophageal echocardiogram suite. A pulse oximetry and heart rate monitors were attached to the patient prior to the procedure. The patient's throat was sprayed using lidocaine locally. Following that, the patient was turned into left lateral position. A bite guard was placed and the patient was then sedated with the above doses of Versed and fentanyl in divided doses. Following that, the transesophageal echocardiogram probe was advanced through the bite guard into the mid esophagus where 2-D echocardiogram images as well as color Doppler images of various cardiac structures were obtained. We evaluated the interatrial septum using 2-D echocardiogram, color Doppler, and contrast study. The procedure was completed. There were no complications. FINDINGS: The left ventricle appeared to be mildly dilated. The left ventricular systolic function appeared to be mildly impaired with EF between 40% to 45%. The right ventricle appeared to be of normal size and function. The left atrium and right atrium appeared to be mildly dilated. The left atrial appendage was not well visualized. The mitral valve appeared to be bioprosthetic valve and seems to be functioning normally with only mild MR. There was an echodensity attached to the lateral wall of the left ventricle with chaotic motion likely consistent with vegetation related to endocarditis. No vegetation seen on the mitral valve. CONCLUSION: 1. An echodensity with chaotic motion attached to the lateral wall of the left ventricle, likely represent vegetation. 2. Mildly impaired left ventricular systolic function. 3. Bioprosthetic mitral valve seems to be functioning normally. 4. No evidence of pericardial effusion. MMODL / IJN: [id number] /
[2020-06-13] MEDS: ONDANSETRON 4 MG/2 ML VIAL IVP PRN ×2 (15:10→21:36)
[2020-06-13 16:23] LABS: Glucose,Whole Blood 123 mg/dL (75-99)
--- NOTE | 2020-06-13 16:32 | PN ---
PROGRESS NOTE A 55-year-old white female with end-stage renal disease, chronic pericardial effusion, diabetes mellitus, pancreatitis was found positive for MRSA x2 in the blood cultures. She recently had infective endocarditis and vegetation to the posterior mitral leaflet with moderate mitral insufficiency. She underwent surgery down at [facility] in March 2020. Due to positive blood cultures x2, TK showed atypical left ventricular wall vegetation for which she will be transferred down to [place]. Otherwise, her white count is 3, hemoglobin is 9 and platelets 71. She is getting dialysis every third day. Sugars are in the low 60s to 130s. She is on vancomycin. Lungs are clear. CARDIOVASCULAR: S1, S2. HEMATOLOGY: Negative Homans. PSYCH: Fair mood and affect. ASSESSMENT: 1. Methicillin-resistant Staphylococcus aureus bacteremia secondary to endocarditis of the left ventricular wall. 2. Hypertension. 3. End-stage renal disease. 4. Diabetes mellitus. 5. Chronic pain syndrome. 6. Allergic asthma. 7. Chronic nausea and gastroesophageal reflux disease. 8. Restless legs syndrome. Continue with pain medication, tramadol, vancomycin. Accu-Chek protocol. Will have to monitor for signs of low blood sugar. We are going to probably cut down her Levemir due to low blood sugars and endocarditis. Possibly will cut her Levemir from 60 down to 30 today and she will be transferred down to [place]. MMODL / IJN: [id number] /
[2020-06-13 20:12] LABS: Glucose,Whole Blood 169 mg/dL (75-99)
[2020-06-13] MEDS: ATORVASTATIN 40 MG TAB PO SCH (21:20)
[2020-06-13] MEDS: INSULIN DETEMIR (LEVEMIR) 100 UNIT/ML SYR SQ SCH (21:20)
[2020-06-13] MEDS: CYCLOBENZAPRINE 5 MG TAB PO SCH (21:21)
[2020-06-13] MEDS: MONTELUKAST 10 MG TAB PO SCH (21:36)
--- NOTE | 2020-06-13 23:21 | PN ---
PROGRESS NOTE DATE OF SERVICE: 06/13/2020 REASON FOR FOLLOWUP: MRSA bacteremia. INTERVAL HISTORY: The patient is currently afebrile. The patient is breathing comfortably on room air. The patient denies having any chest pain or shortness of breath. Occasional cough. No abdominal pain or diarrhea. PHYSICAL EXAMINATION: Her blood pressure is 156/71, pulse of 75, temperature 98. She is 100% on room air. General description is a middle-aged female lying in bed in no distress. RESPIRATORY SYSTEM: Unlabored breathing. Clear to auscultation anteriorly. HEART: S1, S2. Regular rate and rhythm. ABDOMEN: Soft. No tenderness. LABS: Blood culture from 06/12 has been negative so far. DIAGNOSTIC IMPRESSION AND PLAN: Patient with methicillin-resistant Staphylococcus aeruginosa bacteremia in this patient with a recent history of endocarditis, status post valve replacement. TK now showing an abnormality to the ventricular wall, and Cardiology is recommending that the patient be transferred to [facility]. Continue vancomycin and monitor clinical course closely. MMODL / IJN: [id number] /
[2020-06-14] MEDS: HYDROcodone/APAP 7.5-325MG 1 EACH TAB PO PRN ×2 (02:02→16:53)
[2020-06-14] MEDS: BENZONATATE 100 MG CAP PO PRN (03:33)
[2020-06-14 06:51] LABS: Glucose,Whole Blood 136 mg/dL (75-99)
--- NOTE | 2020-06-14 07:06 | CDI ---
Documentation Clarification Form Date: 06/13/2020 11:20:00 AM From: Miladis Urbano CCS, CCDS Admit Date: 06/09/2020 12:10:00 PM Patient Name: Sara Desouza Visit Number: [id number] Discharge Date: ATTENTION: The Clinical Documentation Specialists (CDI) and [facility] Coding Staff appreciate your assistance in clarifying documentation. Please respond to the clarification below the line at the bottom and electronically sign. The CDI & [facility] Coding staff will review the response and follow-up if needed. Please note: Queries are made part of the Legal Health Record. If you have any questions, please contact the author of this message via ITS. Dr. David Bragg: Sepsis is documented in the 06/10 Infectious Disease Consult: "Patient admitted to the hospital with sepsis with fever now with evidence of MRSA." Sepsis has not been documented in subsequent notes. History/Risk Factors: Endocarditis on mitral valve status [facility]. Hypertension, DM, ESRD on HD, CHF, Liver Disease, Necrotizing Pancreatitis, Pneumonia, UTI, Chronic Anemia and MRSA. Clinical Indicators: Presented to the ED via EMS on 06/09, transferred from [facility] where she presented with cough & fever x3 days. ED Impression: Acute febrile illness, Pneumonia, Chronic renal failure syndrome. 06/09 VS: T 99.5 - 101.3^, P 92, R 18 - 20; BP 112/57 - 108/61; PO 98 2Lnc 06/09 LAB: WBC (5.5), RBC 2.55*, Hgb 7.9*, Hct 24.2*, Pl Ct 79*, Lymph 0.1*, BUN 61^, Cr 6.62^, Gluc 171^ Lactic Acid not done. COVID: negative Influenza A/B: negative 06/09 Sputum Culture: Final: Negative. 06/09 Blood Culture: Final neg. Repeat: Final: MRSA. 06/10 Blood Culture: Final: negative. Repeat: Final: MRSA. 06/12 Blood Culture: preliminary: neg after 24 hrs. 06/10 LAB: WBC 2.5*, RBC 2.56*, Hgb 7.9*, Hct 24.7*, Pl Ct 66* RAD: CXR: Perhaps some atelectasis or scarring left midlung, difficult to exclude pneumonia. Treatment 06/09: po Tylenol, IV Azithromycin, IV Rocephin, INH Ventolin, IV Vancomycin, O2 2Lnc ID Consult 06/09: Admit with fever and cough, source likely pneumonia with question of viral vs bacteria. In view of normal WBC, Lymphopenia, high clinical suspicion for COVID 19/viral pneumonia. Patient did recently have endocarditis. Endocarditis needs to be considered. In your professional opinion, please clarify if these findings signify one of the following conditions, whether the condition is POA, and cause, if known: Sepsis ruled out Sepsis ruled in: o with Severe Sepsis, please specify associated condition: Other, please specify Unable to determine Present on Admission o Yes o No Identify the (suspected) organism Link or clarify if there is associated (due to/with): o Organ failure, please specify: (Last Revision: August 2017) MTDD
--- NOTE | 2020-06-14 07:08 | CDI ---
Documentation Clarification Form Date: 06/13/2020 11:39:00 AM From: Miladis Urbano CCS, CCDS Admit Date: 06/09/2020 12:10:00 PM Patient Name: Sara Desouza Visit Number: [id number] Discharge Date: ATTENTION: The Clinical Documentation Specialists (CDI) and [facility] Coding Staff appreciate your assistance in clarifying documentation. Please respond to the clarification below the line at the bottom and electronically sign. The CDI & [facility] Coding staff will review the response and follow-up if needed. Please note: Queries are made part of the Legal Health Record. If you have any questions, please contact the author of this message via ITS. Dr. David Bragg: Pneumonia was documented in the 06/09 ED Note, the 06/09 Nephrology Consult, the 06/09 History & Physical, the 06/09 Infectious Disease Consult, the 06/11 Cardiology Consult and subsequent Progress Notes on 06/10. Pneumonia has not been documented in subsequent progress notes. 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 Hypertension, DM, ESRD on HD, CHF, Liver Disease, Necrotizing Pancreatitis, Pneumonia, UTI, Chronic Anemia and MRSA. Clinical Indicators: Presented to the ED via EMS on 06/09, transferred from [facility] where she presented with cough & fever x3 days. ED Impression: Acute febrile illness, Pneumonia, Chronic renal failure syndrome. Per the 06/09 History & Physical: Possible pneumonia. 06/09 VS: T 99.5 - 101.3^, P 92, R 18 - 20; BP 112/57 - 108/61; PO 98 2Lnc 06/09 LAB: WBC (5.5), RBC 2.55*, Hgb 7.9*, Hct 24.2*, Pl Ct 79*, Lymph 0.1*, BUN 61^, Cr 6.62^, Gluc 171^ Lactic Acid not done. COVID: negative Influenza A/B: negative 06/09 Sputum Culture: Final: Negative. 06/09 Blood Culture: Final neg. Repeat: Final: MRSA. 06/10 Blood Culture: Final: negative. Repeat: Final: MRSA. 06/12 Blood Culture: preliminary: neg after 24 hrs. 06/10 LAB: WBC 2.5*, RBC 2.56*, Hgb 7.9*, Hct 24.7*, Pl Ct 66* RAD: CXR: Perhaps some atelectasis or scarring left midlung, difficult to exclude pneumonia. Treatment 06/09: po Tylenol, IV Azithromycin, IV Rocephin, INH Ventolin, IV Vancomycin, O2 2Lnc ID Consult 06/09: Admit with fever and cough, source likely pneumonia with question of viral vs bacteria. In view of normal WBC, Lymphopenia, high clinical suspicion for COVID 19/viral pneumonia. Patient did recently have endocarditis. Endocarditis needs to be considered. In order to capture the severity of condition, please clarify the following condition: Pneumonia is ruled out Pneumonia is ruled in, please specify type: o Bacterial Pneumonia, specify causal organism (if known) Gram Negative Pneumonia Due to Staph Other bacteria (please specify) o Viral Pneumonia, specify casual organism (if known) o Healthcare Acquired Pneumonia/Pneumonia, unspecified Other, please specify Unable to determine (Last Revision: August 2017) MTDD
[2020-06-14] MEDS: INSULIN ASPART (NovoLOG) 100 UNIT/ML VIAL SQ SCH ×7 (07:09→20:34)
[2020-06-14] MEDS: FUROSEMIDE 40 MG TAB PO SCH ×2 (07:14→20:35)
[2020-06-14] MEDS: cloNIDine HCL 0.1 MG TAB PO SCH ×3 (07:15→20:35)
[2020-06-14] MEDS: hydrALAZINE HCL 50 MG TAB PO SCH ×3 (07:15→20:35)
--- NOTE | 2020-06-14 07:19 | CDI ---
Chronic diastolic heart failure Documentation Clarification Form Date: 06/14/2020 07:10:16 AM From: Miladis MgUrbanoJUAN R moralez, CCDS Admit Date: 06/09/2020 12:10:00 PM Patient Name: Sara Desouza Visit Number: [id number] Discharge Date: ATTENTION: The Clinical Documentation Specialists (CDI) and [facility] Coding Staff appreciate your assistance in clarifying documentation. Please respond to the clarification below the line at the bottom and electronically sign. The CDI & [facility] Coding staff will review the response and follow-up if needed. Please note: Queries are made part of the Legal Health Record. If you have any questions, please contact the author of this message via ITS. Dr. Osmin Cohen: Heart Failure is documented throughout the record including in the Cardiology Consult under the patient's past medical history without further specificity. 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 Hypertension, DM, ESRD on HD, CHF, Liver Disease, Necrotizing Pancreatitis, Pneumonia, UTI, Chronic Anemia and MRSA. Clinical Indicators: Presented to the ED via EMS on 06/09, transferred from [facility] where she presented with cough & fever x3 days. Pedal edema. ED Impression: Acute febrile illness, Pneumonia, Chronic renal failure syndrome. Per the 06/09 History & Physical: Possible pneumonia. 06/09 VS: T 99.5 - 101.3^, P 92, R 18 - 20; BP 112/57 - 108/61; PO 98 2Lnc 06/09 LAB: WBC (5.5), RBC 2.55*, Hgb 7.9*, Hct 24.2*, Pl Ct 79*, Lymph 0.1*, BUN 61^, Cr 6.62^, Gluc 171^ Lactic Acid not done. BNP not done COVID: negative Influenza A/B: negative 06/09 Sputum Culture: Final: Negative. 06/09 Blood Culture: Final neg. Repeat: Final: MRSA. 06/10 Blood Culture: Final: negative. Repeat: Final: MRSA. 06/12 Blood Culture: preliminary: neg after 24 hrs. 06/10 LAB: WBC 2.5*, RBC 2.56*, Hgb 7.9*, Hct 24.7*, Pl Ct 66* RAD: CXR: Perhaps some atelectasis or scarring left midlung, difficult to exclude pneumonia. 06/13 TK: An echodensity with chaotic motion attached to the lateral wall of the left ventricle, likely represent vegetation. Mildly impaired left ventricular systolic function. EF 40-45%. Bioprosthetic mitral valve seems to be functioning normally. No evidence of pericardial effusion. Treatment 06/09: po Tylenol, IV Azithromycin, IV Rocephin, INH Ventolin, IV Vancomycin, O2 2Lnc, po Lasix 80 mg BID. In your professional opinion, can you please clarify the acuity and type of CHF if known? Systolic Heart Failure: o Acute o Chronic o Acute on Chronic Systolic & Diastolic Heart Failure: o Acute o Chronic o Acute on Chronic Heart Failure Unable to Determine Other, please specify (Last Revision: August 2017) MTDD
[2020-06-14] MEDS: METOPROLOL TARTRATE 50 MG TAB PO SCH ×2 (07:24→20:36)
[2020-06-14] MEDS: PANTOPRAZOLE 40 MG TABLET PO SCH (07:24)
[2020-06-14] MEDS: CALCIUM ACETATE 667 MG TAB PO SCH ×3 (07:24→17:19)
[2020-06-14] MEDS: SILDENAFIL 20 MG TAB PO SCH ×3 (07:24→20:35)
[2020-06-14] MEDS: ONDANSETRON 4 MG/2 ML VIAL IVP PRN ×2 (09:18→18:57)
--- NOTE | 2020-06-14 09:49 | P.PN ---
Subjective Patient seen in follow-up for end-stage renal disease. Currently on IV vancomycin for MRSA bacteremia. Vegetation on the left ventricle noted on TK yesterday. Denies chest pain or shortness of breath. Hemodynamically stable. Scheduled for dialysis today. Vital signs are stable. General: The patient appeared well nourished and normally developed. HEENT: Head exam is unremarkable. Neck is without jugular venous distension. LUNGS: Breath sounds decreased. HEART: Rate and Rhythm are regular. ABDOMEN: Soft, nontender. EXTREMITITES: No edema. Objective - Vital Signs Vital signs: Vital Signs Temp 98.1 F 06/14/20 07:15 Pulse 67 06/14/20 07:15 Resp 18 06/14/20 07:15 BP 164/81 06/14/20 07:15 Pulse Ox 98 06/14/20 07:15 Intake & Output 06/13/20 06/14/20 06/14/20 18:59 06:59 18:59 Intake Total 100 Balance 100 Intake: Oral 100 Other: Voiding Method Toilet Toilet # Voids 0 1 - Labs CBC & Chem 7: 06/11/20 06:21 06/11/20 06:21 Labs: Abnormal Lab Results - Last 24 Hours (Table) 06/13/20 06/13/20 06/13/20 Range/Units 11:45 12:22 16:22 POC Glucose (mg/dL) 65 L 71 L 123 H (75-99) mg/dL 06/13/20 06/14/20 Range/Units 20:10 06:49 POC Glucose (mg/dL) 169 H 136 H (75-99) mg/dL Microbiology - Last 24 Hours (Table) 06/12/20 06:45 Blood Culture - Preliminary Blood No Growth after 48 hours 06/13/20 06:06 Blood Culture - Preliminary Blood No Growth after 24 hours 06/10/20 14:13 Blood Culture Gram Stain - Final Blood Blood Culture - Final Methicillin resist S. aureus Assessment and Plan Plan: Assessment: 1. End-stage renal disease maintained on hemodialysis on Thursday schedule via p-cath. 2. MRSA bacteremia maintained on antibiotics. LV vegetation noted on TK 06/13/20. Infectious disease following. 3. Hyponatremia secondary to chronic kidney disease. Hypervolemic. 4. Anemia of chronic kidney disease. Maintained on Aranesp. 5. Hypertension with chronic kidney disease. Stable. 6. Diabetes mellitus. 7. Metabolic acidosis secondary to chronic kidney disease. Expect improvement postdialysis. 8. Chronic kidney disease mineral bone disease. Phosphorous 5.4. Maintained on PhosLo. 9. History of mitral valve replacement in March 2020 at [facility]. Plan: Hemodialysis today. Monitor vancomycin levels. Dose to be adjusted for renal function. Target leve l near 15-20. Awaits transfer to [facility]
[2020-06-14] MEDS ORDERED: KETOTIFEN 0.025% OPHTH DROPS 5 ML BTL BOTH EYES PRN (10:22)
[2020-06-14] MEDS: ASCORBIC ACID 500 MG TAB PO SCH (10:52)
[2020-06-14 11:13] LABS: Glucose,Whole Blood 216 mg/dL (75-99)
--- NOTE | 2020-06-14 12:39 | P.PN ---
Subjective Progress Note Date: 06/14/20 CHIEF COMPLAINT: TK HISTORY OF PRESENT ILLNESS: 06/11/2020 This is a 54-year-old female with a past medical history significant for end- stage renal disease on dialysis, chronic pericardial effusion, hypertension, hyperlipidemia, diabetes mellitus, and pancreatitis. Patient was hospitalized in March 2020 and found to have infective endocarditis with evidence of abscess and vegetation attached to the posterior mitral leaflet with evidence of moderate mitral insufficiency. Patient was transferred to [facility]. She underwent mitral valve replacement with a tissue valve in March 2020. Patient follows in the office with Dr. Tesfaye. Patient presented to the hospital with fevers x 3 days. She has been diagnosed MRSA bacteremia. Hence, cardiology consult was requested for TK. 06/12/2020 Patient examined this morning at the bedside. Cultures are positive for MRSA. Repeat cultures are positive for presumptive MRSA. She remains on antibiotics and is being followed by infectious disease. Blood pressure 107/49. Heart rate in the 60s. She is afebrile. She is on room air with oxygen saturations greater than 92%. 06/14/2020 Patient examined at the bedside. Patient is status post TK yesterday revealing an echodensity with chaotic motion attached the lateral wall of the left ventricle, likely representing vegetation. Bioprosthetic mitral valve appears to be functioning normally. Patient with 2 positive blood cultures for MRSA. Repeat cultures are currently negative. Recommendations were for transfer to [facility]. Patient is currently awaiting a bed at [facility]. She denies chest pain or pressure. Denies shortness of breath. She is afebrile. PHYSICAL EXAM: VITAL SIGNS: Reviewed. GENERAL: Well-developed in no acute distress. HEENT: Head is normocephalic. Pupils are equal, round. Sclerae anicteric. Mucous membranes of the mouth are moist. Neck supple. No JVD or thyromegaly LUNGS: Respirations even and unlabored. Lungs diminished bilaterally. HEART: Regular rate and rhythm. S1 and S2 heard. Systolic murmur noted. EXTREMITIES: Normal range of motion. No clubbing or cyanosis. Peripheral pulses intact. No lower extremity edema ASSESSMENT: Febrile illness MRSA bacteremia History of infective endocarditis of mitral valve, March 2020 History of mitral valve replacement, March 2020 Chronic pericardial effusion End-stage kidney disease, on hemodialysis Hypertension Hyperlipidemia Diabetes mellitus PLAN: Continue home cardiac medications Continue antibiotics per Dr. Coker Patient is currently awaiting a bed at [facility] We will sign off. Please re-consult if needed. Nurse practitioner note has been reviewed by physician. Signing provider agrees with the documented findings, assessment, and plan of care. Objective - Vital Signs Vital signs: Vital Signs Temp 98.1 F 06/14/20 07:15 Pulse 67 06/14/20 07:15 Resp 18 06/14/20 07:15 BP 164/81 06/14/20 07:15 Pulse Ox 98 06/14/20 07:15 Intake & Output 06/13/20 06/14/20 06/14/20 18:59 06:59 18:59 Intake Total 100 Balance 100 Intake: Oral 100 Other: Voiding Method Toilet Toilet # Voids 0 1 1 - Labs CBC & Chem 7: 06/11/20 06:21 06/11/20 06:21 Labs: Abnormal Lab Results - Last 24 Hours (Table) 06/13/20 06/13/20 06/14/20 Range/Units 16:22 20:10 06:49 POC Glucose (mg/dL) 123 H 169 H 136 H (75-99) mg/dL 06/14/20 Range/Units 11:12 POC Glucose (mg/dL) 216 H (75-99) mg/dL Microbiology - Last 24 Hours (Table) 06/12/20 06:45 Blood Culture - Preliminary Blood No Growth after 48 hours 06/13/20 06:06 Blood Culture - Preliminary Blood No Growth after 24 hours 06/10/20 14:13 Blood Culture Gram Stain - Final Blood Blood Culture - Final Methicillin resist S. aureus
--- NOTE | 2020-06-14 13:06 | P.PN ---
Subjective Progress Note Date: 06/14/20 HISTORY OF PRESENT ILLNESS The 54-year-old female patient treated for fever and bacteremia. Blood culture positive for MRSA. Patient does have history of endocarditis status post mitral valve replacement and did have dialysis catheter. Patient underwent TK yesterday revealing an echodensity with chaotic motion attached the lateral wall of the left ventricle, likely representing vegetation. Bioprosthetic mitral valve appears to be functioning normally. Arrangements have been made for patient transfer to unit from Hospital once bed is available. She has been afebrile, heart rate 67, blood pressure 164/81, pulse ox 90% on room air. Patient is maintained on IV vancomycin. PHYSICAL EXAMINATION Gen: This is a 54-year-old female. She appears to be in no acute distress. HEENT: Head is atraumatic, normocephalic. Pupils equal, round. Sclerae is anicteric. NECK: Supple. No JVD. No lymphadenopathy. LUNGS: Clear to auscultation. No wheezes or rhonchi. No intercostal re tractions. HEART: Regular rate and rhythm. ABDOMEN: Soft. Bowel sounds are present. No masses. No tenderness. EXTREMITIES: No pedal edema. No calf tenderness. NEUROLOGICAL: Patient is awake, alert and oriented x3. ASSESSMENT MRSA bacteremia secondary to endocarditis PLAN Continue vancomycin, pharmacy dosing Continue supportive care Plan is to transfer to the [facility] once arrangements are completed in bed available. The above dictated assessment and findings were discussed with Dr. Coker. The impression and plan of care have been directed as dictated. Otilia Coffey nurse practitioner acting as scribe for Dr. Coker. Objective - Vital Signs Vital signs: Vital Signs Temp 98.1 F 06/14/20 07:15 Pulse 67 06/14/20 07:15 Resp 18 06/14/20 07:15 BP 164/81 06/14/20 07:15 Pulse Ox 98 06/14/20 07:15 Intake & Output 06/13/20 06/14/20 06/14/20 18:59 06:59 18:59 Intake Total 100 Balance 100 Intake: Oral 100 Other: Voiding Method Toilet Toilet # Voids 0 1 - Labs CBC & Chem 7: 06/11/20 06:21 06/11/20 06:21 Labs: Abnormal Lab Results - Last 24 Hours (Table) 06/13/20 06/13/20 06/13/20 Range/Units 11:45 12:22 16:22 POC Glucose (mg/dL) 65 L 71 L 123 H (75-99) mg/dL 06/13/20 06/14/20 Range/Units 20:10 06:49 POC Glucose (mg/dL) 169 H 136 H (75-99) mg/dL Microbiology - Last 24 Hours (Table) 06/12/20 06:45 Blood Culture - Preliminary Blood No Growth after 48 hours 06/13/20 06:06 Blood Culture - Preliminary Blood No Growth after 24 hours 06/10/20 14:13 Blood Culture Gram Stain - Final Blood Blood Culture - Final Methicillin resist S. aureus
[2020-06-14] MEDS: ALBUTEROL HFA INHALER INHALATION PRN (16:07)
[2020-06-14 17:14] LABS: Glucose,Whole Blood 118 mg/dL (75-99)
[2020-06-14 19:44] VITALS: RESP 18
[2020-06-14 20:20] LABS: Glucose,Whole Blood 210 mg/dL (75-99)
[2020-06-14] MEDS: INSULIN DETEMIR (LEVEMIR) 100 UNIT/ML SYR SQ SCH (20:34)
[2020-06-14] MEDS: CYCLOBENZAPRINE 5 MG TAB PO SCH (20:35)
[2020-06-14] MEDS: ATORVASTATIN 40 MG TAB PO SCH (20:35)
[2020-06-14] MEDS: MONTELUKAST 10 MG TAB PO SCH (20:35)
[2020-06-14] MEDS ORDERED: diphenhydrAMINE 25 MG CAP PO PRN (20:39)
[2020-06-14] MEDS: traMADol 50 MG TAB PO PRN (23:41)
[2020-06-15] MEDS: ONDANSETRON 4 MG/2 ML VIAL IVP PRN ×2 (03:49→20:42)
[2020-06-15 07:15] LABS: Glucose,Whole Blood 100 mg/dL (75-99)
[2020-06-15] MEDS: hydrALAZINE HCL 50 MG TAB PO SCH ×2 (07:17→17:33)
[2020-06-15] MEDS: PANTOPRAZOLE 40 MG TABLET PO SCH (07:18)
[2020-06-15] MEDS: METOPROLOL TARTRATE 50 MG TAB PO SCH ×2 (07:18→20:35)
[2020-06-15] MEDS: SILDENAFIL 20 MG TAB PO SCH ×2 (07:18→17:33)
[2020-06-15] MEDS: FUROSEMIDE 40 MG TAB PO SCH ×2 (07:18→20:35)
[2020-06-15] MEDS: ASCORBIC ACID 500 MG TAB PO SCH (07:19)
[2020-06-15] MEDS: INSULIN ASPART (NovoLOG) 100 UNIT/ML VIAL SQ SCH ×7 (07:20→20:42)
[2020-06-15] MEDS: cloNIDine HCL 0.1 MG TAB PO SCH ×2 (07:21→17:33)
[2020-06-15] MEDS: CALCIUM ACETATE 667 MG TAB PO SCH ×3 (07:22→17:33)
--- NOTE | 2020-06-15 08:26 | CDI ---
Documentation Clarification Form Date: 06/13/2020 11:20:00 AM From: Miladis Urbano CCS, CCDS Admit Date: 06/09/2020 12:10:00 PM Patient Name: Sara Desouza Visit Number: [id number] Discharge Date: ATTENTION: The Clinical Documentation Specialists (CDI) and [facility] Coding Staff appreciate your assistance in clarifying documentation. Please respond to the clarification below the line at the bottom and electronically sign. The CDI & [facility] Coding staff will review the response and follow-up if needed. Please note: Queries are made part of the Legal Health Record. If you have any questions, please contact the author of this message via ITS. Dr. David Bragg: Please document your response prior to signing this query. Sepsis is documented in the 06/10 Infectious Disease Consult: "Patient admitted to the hospital with sepsis with fever now with evidence of MRSA." Sepsis has not been documented in subsequent notes. 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 Hypertension, DM, ESRD on HD, CHF, Liver Disease, Necrotizing Pancreatitis, Pneumonia, UTI, Chronic Anemia and MRSA. Clinical Indicators: Presented to the ED via EMS on 06/09, transferred from [facility] where she presented with cough & fever x3 days. ED Impression: Acute febrile illness, Pneumonia, Chronic renal failure syndrome. 06/09 VS: T 99.5 - 101.3^, P 92, R 18 - 20; BP 112/57 - 108/61; PO 98 2Lnc 06/09 LAB: WBC (5.5), RBC 2.55*, Hgb 7.9*, Hct 24.2*, Pl Ct 79*, Lymph 0.1*, BUN 61^, Cr 6.62^, Gluc 171^ Lactic Acid not done. COVID: negative Influenza A/B: negative 06/09 Sputum Culture: Final: Negative. 06/09 Blood Culture: Final neg. Repeat: Final: MRSA. 06/10 Blood Culture: Final: negative. Repeat: Final: MRSA. 06/12 Blood Culture: preliminary: neg after 24 hrs. 06/10 LAB: WBC 2.5*, RBC 2.56*, Hgb 7.9*, Hct 24.7*, Pl Ct 66* RAD: CXR: Perhaps some atelectasis or scarring left midlung, difficult to exclude pneumonia. Treatment 06/09: po Tylenol, IV Azithromycin, IV Rocephin, INH Ventolin, IV Vancomycin, O2 2Lnc ID Consult 06/09: Admit with fever and cough, source likely pneumonia with question of viral vs bacteria. In view of normal WBC, Lymphopenia, high clinical suspicion for COVID 19/viral pneumonia. Patient did recently have endocarditis. Endocarditis needs to be considered. In your professional opinion, please clarify if these findings signify one of the following conditions, whether the condition is POA, and cause, if known: Sepsis ruled out Sepsis ruled in: o with Severe Sepsis, please specify associated condition: Other, please specify Unable to determine Present on Admission o Yes o No Identify the (suspected) organism Link or clarify if there is associated (due to/with): o Organ failure, please specify: (Last Revision: August 2017) MTDD
--- NOTE | 2020-06-15 08:28 | CDI ---
Documentation Clarification Form Date: 06/13/2020 11:39:00 AM From: Miladis Urbano CCS, CCDS Admit Date: 06/09/2020 12:10:00 PM Patient Name: Sara Desouza Visit Number: [id number] Discharge Date: ATTENTION: The Clinical Documentation Specialists (CDI) and [facility] Coding Staff appreciate your assistance in clarifying documentation. Please respond to the clarification below the line at the bottom and electronically sign. The CDI & [facility] Coding staff will review the response and follow-up if needed. Please note: Queries are made part of the Legal Health Record. If you have any questions, please contact the author of this message via ITS. Dr. David Bragg: Pneumonia was documented in the 06/09 ED Note, the 06/09 Nephrology Consult, the 06/09 History & Physical, the 06/09 Infectious Disease Consult, the 06/11 Cardiology Consult and subsequent Progress Notes on 06/10. Pneumonia has not been documented in subsequent progress notes. 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 Hypertension, DM, ESRD on HD, CHF, Liver Disease, Necrotizing Pancreatitis, Pneumonia, UTI, Chronic Anemia and MRSA. Clinical Indicators: Presented to the ED via EMS on 06/09, transferred from [facility] where she presented with cough & fever x3 days. ED Impression: Acute febrile illness, Pneumonia, Chronic renal failure syndrome. Per the 06/09 History & Physical: Possible pneumonia. 06/09 VS: T 99.5 - 101.3^, P 92, R 18 - 20; BP 112/57 - 108/61; PO 98 2Lnc 06/09 LAB: WBC (5.5), RBC 2.55*, Hgb 7.9*, Hct 24.2*, Pl Ct 79*, Lymph 0.1*, BUN 61^, Cr 6.62^, Gluc 171^ Lactic Acid not done. COVID: negative Influenza A/B: negative 06/09 Sputum Culture: Final: Negative. 06/09 Blood Culture: Final neg. Repeat: Final: MRSA. 06/10 Blood Culture: Final: negative. Repeat: Final: MRSA. 06/12 Blood Culture: preliminary: neg after 24 hrs. 06/10 LAB: WBC 2.5*, RBC 2.56*, Hgb 7.9*, Hct 24.7*, Pl Ct 66* RAD: CXR: Perhaps some atelectasis or scarring left midlung, difficult to exclude pneumonia. Treatment 06/09: po Tylenol, IV Azithromycin, IV Rocephin, INH Ventolin, IV Vancomycin, O2 2Lnc ID Consult 06/09: Admit with fever and cough, source likely pneumonia with question of viral vs bacteria. In view of normal WBC, Lymphopenia, high clinical suspicion for COVID 19/viral pneumonia. Patient did recently have endocarditis. Endocarditis needs to be considered. In order to capture the severity of condition, please clarify the following condition: Pneumonia is ruled out Pneumonia is ruled in, please specify type: o Bacterial Pneumonia, specify causal organism (if known) o Gram Negative Pneumonia o Due to Staph o Other bacteria (please specify) Viral Pneumonia, specify casual organism (if known) Healthcare Acquired Pneumonia/Pneumonia, unspecified Other, please specify Unable to determine (Last Revision: August 2017) MTDD
--- NOTE | 2020-06-15 11:42 | P.PN ---
Subjective Patient seen in follow-up for end-stage renal disease. Currently on IV vancomycin for MRSA bacteremia. Vegetation on the left ventricle noted on TK yesterday. Denies chest pain or shortness of breath. Hemodynamically stable. Tolerated dialysis well yesterday. Awaits transfer to [facility]. Vital signs are stable. General: The patient appeared well nourished and normally developed. HEENT: Head exam is unremarkable. Neck is without jugular venous distension. LUNGS: Breath sounds decreased. HEART: Rate and Rhythm are regular. ABDOMEN: Soft, nontender. EXTREMITITES: No edema. Objective - Vital Signs Vital signs: Vital Signs Temp 98.2 F 06/15/20 07:18 Pulse 65 06/15/20 07:18 Resp 18 06/15/20 07:18 BP 156/74 06/15/20 07:18 Pulse Ox 100 06/15/20 07:18 Intake & Output 06/14/20 06/15/20 06/15/20 18:59 06:59 18:59 Output Total 3000 Balance -3000 Output: Hemodialysis 3000 Other: Voiding Method Toilet # Voids 1 1 - Labs CBC & Chem 7: 06/11/20 06:21 06/11/20 06:21 Labs: Abnormal Lab Results - Last 24 Hours (Table) 06/14/20 06/14/20 06/15/20 Range/Units 17:12 20:18 07:13 POC Glucose (mg/dL) 118 H 210 H 100 H (75-99) mg/dL Microbiology - Last 24 Hours (Table) 06/12/20 06:45 Blood Culture - Preliminary Blood No Growth after 72 hours 06/14/20 06:38 Blood Culture - Preliminary Blood No Growth after 24 hours 06/13/20 06:06 Blood Culture - Preliminary Blood No Growth after 48 hours Assessment and Plan Plan: Assessment: 1. End-stage renal disease maintained on hemodialysis on Thursday schedule via p-cath. 2. MRSA bacteremia maintained on antibiotics. LV vegetation noted on TK 06/13/20. Infectious disease following. 3. Hyponatremia secondary to chronic kidney disease. Hypervolemic. 4. Anemia of chronic kidney disease. Maintained on Aranesp. 5. Hypertension with chronic kidney disease. Stable. 6. Diabetes mellitus. 7. Metabolic acidosis secondary to chronic kidney disease. Expect improvement postdialysis. 8. Chronic kidney disease mineral bone disease. Phosphorous 5.4. Maintained on PhosLo. 9. History of mitral valve replacement in March 2020 at [facility]. Plan: Hemodialysis tomorrow. Monitor vancomycin levels. Dose to be adjusted for renal function. Target level near 15-20. Awaits transfer to [facility].
[2020-06-15 12:07] LABS: Glucose,Whole Blood 81 mg/dL (75-99)
--- NOTE | 2020-06-15 12:59 | P.PN ---
Subjective Progress Note Date: 06/15/20 HISTORY OF PRESENT ILLNESS The 54-year-old female patient treated for fever and bacteremia. Blood culture positive for MRSA. Patient does have history of endocarditis status post mitral valve replacement and did have dialysis catheter. Patient underwent TK yesterday revealing an echodensity with chaotic motion attached the lateral wall of the left ventricle, likely representing vegetation. Bioprosthetic mitral valve appears to be functioning normally. Arrangements have been made for patient transfer to [facility] once bed is available. Patient is seen today in follow-up. She states she has a little bit of cough that started last night. She has some minimal chest pain. No vomiting or diarrhea. No abdominal pain. She has been afebrile, heart rate 65, blood pressure 156/74, pulse ox 100% on room air. Patient is maintained on IV vancomycin. PHYSICAL EXAMINATION Gen: This is a 54-year-old female. She appears to be in no acute distress. HEENT: Head is atraumatic, normocephalic. Pupils equal, round. Sclerae is anicteric. NECK: Supple. No JVD. No lymphadenopathy. LUNGS: Clear to auscultation. No wheezes or rhonchi. No intercostal retr actions. HEART: Regular rate and rhythm. ABDOMEN: Soft. Bowel sounds are present. No masses. No tenderness. EXTREMITIES: No pedal edema. No calf tenderness. NEUROLOGICAL: Patient is awake, alert and oriented x3. ASSESSMENT MRSA bacteremia secondary to endocarditis PLAN Continue vancomycin, pharmacy dosing Continue supportive care Plan is to transfer to the [facility] once arrangements are completed in bed available. The above dictated assessment and findings were discussed with Dr. Coker. The impression and plan of care have been directed as dictated. Otilia Coffey nurse practitioner acting as scribe for Dr. Coker. Objective - Vital Signs Vital signs: Vital Signs Temp 98.2 F 06/15/20 07:18 Pulse 65 06/15/20 07:18 Resp 18 06/15/20 07:18 BP 156/74 06/15/20 07:18 Pulse Ox 100 06/15/20 07:18 Intake & Output 06/14/20 06/15/20 06/15/20 18:59 06:59 18:59 Output Total 3000 Balance -3000 Output: Hemodialysis 3000 Other: Voiding Method Toilet # Voids 1 1 - Labs CBC & Chem 7: 02/01/21 06:21 06/11/20 06:21 Labs: Abnormal Lab Results - Last 24 Hours (Table) 06/14/20 06/14/20 06/15/20 Range/Units 17:12 20:18 07:13 POC Glucose (mg/dL) 118 H 210 H 100 H (75-99) mg/dL Microbiology - Last 24 Hours (Table) 06/12/20 06:45 Blood Culture - Preliminary Blood No Growth after 72 hours 06/14/20 06:38 Blood Culture - Preliminary Blood No Growth after 24 hours 06/13/20 06:06 Blood Culture - Preliminary Blood No Growth after 48 hours
[2020-06-15 13:27] VITALS: BMI 29.2
[2020-06-15 14:47] VITALS: BP 165/77; PULSE 71; TEMP 97.8
--- NOTE | 2020-06-15 16:15 | PN ---
PROGRESS NOTE DATE OF SERVICE: 06/14/2020 This is a 55-year-old white female who is examined. She is status post TK. Echodensity, chaotic motion of the lateral wall of the left ventricle, vegetation. She has positive blood cultures x2 with MRSA. Repeat cultures are currently negative. She is going to transfer to [facility]; waiting for a bed. CARDIOVASCULAR: S1, S2. LUNGS: Clear. GI: Soft. HEMATOLOGY: Negative Homans. PSYCH: Fair mood and affect. 1. Febrile illness. 2. Methicillin-resistant Staphylococcus aeruginosa bacteremia. 3. History of infective endocarditis. 4. Abnormal transesophageal echocardiogram. 5. Chronic pericardial effusion. 6. End-stage renal disease. 7. Diabetes mellitus. 8. Hypertension. 9. Dyslipidemia. Waiting for a bed at [facility]. Continue antibiotics per Dr. Coker. IV vancomycin. Please see further orders. MMODL / IJN: [id number] /
--- NOTE | 2020-06-15 16:30 | PN ---
PROGRESS NOTE DATE OF SERVICE: 06/15/2020 A 55-year-old white female with positive blood cultures for MRSA x2, underwent TK with echodensity of the left lateral ventricle wall. Waiting for bed at [facility]. Repeat blood cultures have been negative x2 after the first 2 were positive for MRSA. LUNGS: Are clear. CARDIAC: Regular rate and rhythm. EXTREMITIES: 2+ edema. No acute distress, sitting on the bed. ASSESSMENT: 1. MRSA bacteremia secondary to endocarditis. 2. End-stage renal disease. 3. Hypertension. 4. . 5. Chronic obstructive pulmonary disease. 6. Dyslipidemia. Continue vancomycin. Supportive care. Transfer to [facility] when the beds are available. Continue to monitor electrolytes and white count, which will be ordered for tomorrow. MMODL / IJN: [id number] /
[2020-06-15 17:12] LABS: Glucose,Whole Blood 185 mg/dL (75-99)
--- NOTE | 2020-06-15 17:12 | PN ---
PROGRESS NOTE This is a 55-year-old white female. Sepsis is ruled in secondary to MRSA bacteremia from endocarditis. Do not suspect pneumonia. I suspect endocarditis. Pneumonia is ruled out. MMODL / IJN: [id number] /
[2020-06-15] MEDS ORDERED: VANCOMYCIN 1,250 MG in SODIUM CHLORIDE 0.9% 250 ML IVPB ONE (18:00)
[2020-06-15 20:21] LABS: Glucose,Whole Blood 251 mg/dL (75-99)
[2020-06-15] MEDS: CYCLOBENZAPRINE 5 MG TAB PO SCH (20:35)
[2020-06-15] MEDS: ATORVASTATIN 40 MG TAB PO SCH (20:35)
[2020-06-15] MEDS: MONTELUKAST 10 MG TAB PO SCH (20:35)
[2020-06-15] MEDS: HYDROcodone/APAP 7.5-325MG 1 EACH TAB PO PRN (20:36)
[2020-06-15] MEDS: INSULIN DETEMIR (LEVEMIR) 100 UNIT/ML SYR SQ SCH (20:42)
== END 2020-06-15 21:45 | disposition short-term general hospital (02) | DRG 871 ==
LOC: EC 10:43 → 4SSUR 12:10
PROVIDERS: ADMIT Family Medicine; ATTEND Family Medicine
PROC: 5A1D70Z Performance of Urinary Filtration, Intermittent, Less than 6 Hours Per Day (ICD-10-PCS; principal; 2020-06-09)
DX: A41.02 Sepsis due to Methicillin resistant Staphylococcus aureus (principal); I33.0 Acute and subacute infective endocarditis; N18.6 End stage renal disease; E87.2 Acidosis; I13.2 Hypertensive heart and chronic kidney disease with heart failure and with stage 5 chronic kidney disease, or end stage renal disease; E87.1 Hypo-osmolality and hyponatremia; J44.0 Chronic obstructive pulmonary disease with (acute) lower respiratory infection; I50.32 Chronic diastolic (congestive) heart failure; I31.3 Pericardial effusion (noninflammatory); D63.1 Anemia in chronic kidney disease; E11.22 Type 2 diabetes mellitus with diabetic chronic kidney disease; Z79.4 Long term (current) use of insulin; Z99.2 Dependence on renal dialysis; B95.62 Methicillin resistant Staphylococcus aureus infection as the cause of diseases classified elsewhere; D72.810 Lymphocytopenia; R63.0 Anorexia; M89.8X9 Other specified disorders of bone, unspecified site; R14.0 Abdominal distension (gaseous); J45.909 Unspecified asthma, uncomplicated; Z20.822 Contact with and (suspected) exposure to COVID-19; E78.5 Hyperlipidemia, unspecified; K76.9 Liver disease, unspecified; G25.81 Restless legs syndrome; K21.9 Gastro-esophageal reflux disease without esophagitis; G89.4 Chronic pain syndrome; M54.5 Low back pain; E78.1 Pure hyperglyceridemia; I34.0 Nonrheumatic mitral (valve) insufficiency; Z90.411 Acquired partial absence of pancreas; Z98.890 Other specified postprocedural states; Z88.1 Allergy status to other antibiotic agents; Z91.041 Radiographic dye allergy status; Z79.899 Other long term (current) drug therapy; Z86.19 Personal history of other infectious and parasitic diseases; Z87.440 Personal history of urinary (tract) infections; Z86.14 Personal history of Methicillin resistant Staphylococcus aureus infection; Z86.69 Personal history of other diseases of the nervous system and sense organs; Z87.01 Personal history of pneumonia (recurrent); Z86.010 Personal history of colon polyps; Z82.49 Family history of ischemic heart disease and other diseases of the circulatory system; Z81.1 Family history of alcohol abuse and dependence; Z80.9 Family history of malignant neoplasm, unspecified; Z98.42 Cataract extraction status, left eye; Z98.41 Cataract extraction status, right eye
CPT/HCPCS: 71046; 80048; 80053; 80202; 83540; 83550; 84100; 84145; 85025; 86140; 87040; 87070; 87077; 87186; 87205; 87449; 87502; 90935; 93005; 93312; 93325; 94640; 94760; 96365; 96375; 99285

== ENCOUNTER 2020-07-09 13:17 | Inpatient (IN) | payer OTHER ==
[2020-07-09 14:28] LABS: Anisocytosis Slight; Basophils % (A) 0 %; Eosinophils # (A) 0.1 k/uL (0-0.7); Eosinophils % (A) 2 %; HCT 23.9 % (34.0-46.0); HGB 7.8 gm/dL (11.4-16.0); Lymphocytes # (A) 0.3 k/uL (1.0-4.8); Lymphocytes % (A) 7 %; MCH 30.9 pg (25.0-35.0); MCHC 32.8 g/dL (31.0-37.0); MCV 94.3 fL (80.0-100.0); Macrocytosis Slight; Monocytes # (A) 0.3 k/uL (0-1.0); Monocytes % (A) 6 %; Neutrophils # (A) 3.5 k/uL (1.3-7.7); Neutrophils % (A) 84 %; RBC 2.54 m/uL (3.80-5.40); RDW 18.5 % (11.5-15.5); WBC 4.1 k/uL (3.8-10.6)
[2020-07-09 14:39] LABS: Albumin 3.9 g/dL (3.5-5.0); Calcium 8.8 mg/dL (8.4-10.2); Magnesium 1.5 mg/dL (1.6-2.3); Potassium 4.7 mmol/L (3.5-5.1); Total Bilirubin 0.8 mg/dL (0.2-1.3); Total Protein 6.4 g/dL (6.3-8.2)
[2020-07-09 14:41] LABS: Partial Thromboplastin Time 23.8 sec (22.0-30.0)
--- NOTE | 2020-07-09 14:41 | XR ---
EXAMINATION TYPE: XR chest 2V DATE OF EXAM: 07/09/2020 COMPARISON: Prior chest x-ray 06/10/2020 HISTORY: Difficulty breathing, hypertension TECHNIQUE: Frontal and lateral views of the chest are obtained. FINDINGS: There is no focal air space opacity, pleural effusion, or pneumothorax seen. The cardiac silhouette size is stable. Right jugular central venous catheter, mitral valve replacement change an d median sternotomy are again noted. Left cephalic vein stents thought present. There is some mild pr ominence of the central vascularity. The osseous structures are intact. IMPRESSION: Correlate for volume overload
[2020-07-09 14:42] LABS: Platelet Count 182 k/uL (150-450)
--- NOTE | 2020-07-09 15:28 | ED ---
General Adult HPI - General Chief complaint: Extremity Problem,Nontraumatic Stated complaint: High BP, Retaining water Time Seen by Provider: 07/09/20 13:20 Source: patient, RN notes reviewed, old records reviewed Mode of arrival: ambulatory Limitations: no limitations - History of Present Illness Initial comments: This a 55-year-old female with past medical history significant for high blood pressure as well as dialysis. Patient states she's on antibiotics chronically for infection. Patient states her abdomen is getting larger and her feet are be coming more swollen and she showed up at dialysis today and they told her she needs to come to the emergency department. She was under the impression that she would be getting some different antibiotics. We have made multiple attempts to get a hold of her infectious disease doctor [facility] but it but unable to so far. Patient does state her abdomen is getting much more distended is making it difficult to breathing and it's also painful. Patient denies any chest pain or palpitations. Patient denies any headache patient denies numbness weakness per patient denies any fever chills. - Related Data Home Medications Medication Instructions Recorded Confirmed cloNIDine HCL 0.3 mg PO TID@0530,1300,1900 12/16/16 07/09/20 Prochlorperazine [Compazine] 5 mg PO BID PRN 10/26/17 07/09/20 INSULIN LISPRO (humaLOG) [humaLOG] 10 unit SQ AC-TID 07/12/18 07/09/20 hydrALAZINE HCL [Apresoline] 100 mg PO QID 12/14/18 07/09/20 HYDROcodone/APAP 7.5-325MG [[place] 1 tab PO Q8H 11/08/19 07/09/20 7.5-325] Montelukast [Singulair] 10 mg PO HS@1900 11/08/19 07/09/20 Insulin Glargine,Hum.rec.anlog See Protocol SQ HS 12/02/19 07/09/20 [Basaglar Kwikpen U-100] Albuterol Sulfate [Proair Hfa] 2 puff INHALATION RT-Q6H PRN 01/28/20 07/09/20 Furosemide [Lasix] 80 mg PO BID@0530,1300 01/28/20 07/09/20 INSULIN LISPRO (HumaLOG) [humaLOG] See Protocol SQ ACHS 03/17/20 07/09/20 Sildenafil [Revatio] 20 mg PO TID@0530,1300,1900 04/20/20 07/09/20 Benzonatate [Tessalon Perles] 100 mg PO TID@0530,1300,1900 05/13/20 07/09/20 Cyclobenzaprine [Flexeril] 5 mg PO HS 05/13/20 07/09/20 traMADol HCL [Ultram] 50 mg PO Q12H 05/13/20 07/09/20 Lidocaine-Prilocaine Cream [Emla 1 applic TOPICAL DIRECTED PRN 06/09/20 07/09/20 Cream 2.5%/2.5%] rOPINIRole HCL [Requip] 1 mg PO TID@0530,1300,1900 06/09/20 07/09/20 Olopatadine HCl [Pataday] 1 - 2 drop BOTH EYES BID PRN 06/14/20 07/09/20 Ascorbic Acid [Vitamin C] 500 mg PO DAILY@0530 07/09/20 07/09/20 Atorvastatin [Lipitor] 40 mg PO HS@1900 07/09/20 07/09/20 Dextromethorphan Polistirex 60 mg PO Q12H PRN 07/09/20 07/09/20 [Delsym] Metoprolol Tartrate [Lopressor] 50 mg PO TID 07/09/20 07/09/20 Vancomycin 1,000 mg IVPB TUTHSA 07/09/20 07/09/20 rifAMPin [Rifampin] 300 mg PO TID@0530,1300,1900 07/09/20 07/09/20 Allergies Allergy/AdvReac Type Severity Reaction Status Date / Time Anesthetics - Amide Type - Allergy Unknown Verified 07/09/20 16:06 Select A Anesthetics - Andree Type- Allergy Unknown Verified 07/09/20 16:06 Parabens ciprofloxacin [From Cipro] AdvReac AFFECTED Verified 07/09/20 16:06 EYESIGHT ciprofloxacin HCl AdvReac AFFECTED Verified 07/09/20 16:06 [From Cipro] EYESIGHT Iodinated Contrast Media AdvReac RENAL Verified 07/09/20 16:06 FAILURE Review of Systems ROS Statement: Those systems with pertinent positive or pertinent negative responses have been documented in the HPI. ROS Other: All systems not noted in ROS Statement are negative. 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 hemodialysis for acute kidney injury 2 months in 2009 after pancreatic OR, 11/2015 diagnosed w/ chronic kidney disease-hemodialysis -last hemodialysis 06/02/19, IDDM type II, past DKA, UTI, chronic anemia, frequent body cramping, occasional low back pain, carter's palsy x2, past L leg fx, possible liver disease-recent liver bx-results unknown per pt. History of Any Multi-Drug Resistant Organisms: MRSA Date of last positivie culture/infection: 06/10/20 MDRO Source:: Blood Past Surgical History: Cardiac Valve Replacement, Orthopedic Surgery, Uterine Ablation Additional Past Surgical History / Comment(s): Recent liver biopsy done at [place] but pt states they have never contacted her with the results, 08/26/17 colonoscopy with polypectomy/bx, pancreatic resection at [facility] 2009, bone marrow biopsies X2-last one 05/19/16,. dialysis chest port x 2 with removals, Left arm shunt placement for dialysis - December 2015 and a revision done with shunt. Left forearm Vein Revision - October 2019 Past Anesthesia/Blood Transfusion Reactions: No Reported Reaction Additional Past Anesthesia/Blood Transfusion Reaction / Comment(s): Pt has received blood transfusions without reaction. Past Psychological History: No Psychological Hx Reported Smoking Status: Never smoker Past Alcohol Use History: None Reported Past Drug Use History: None Reported - Past Family History Brother(s) Family Medical History: No Reported History Mother Family Medical History: Cancer Additional Family Medical History / Comment(s): . Father Family Medical History: Hypertension Additional Family Medical History / Comment(s): alcoholism General Exam - General Exam Comments Initial Comments: GENERAL: Patient is well-developed and well-nourished. Patient is nontoxic and well- hydrated and is in mild distress. ENT: Neck is soft and supple. No significant lymphadenopathy is noted. Oropharynx is clear. Moist mucous membranes. Neck has full range of motion without eliciting any pain. EYES: The sclera were anicteric and conjunctiva were pink and moist. Extraocular movements were intact and pupils were equal round and reactive to light. Eyelids were unremarkable. PULMONARY: Unlabored respirations. Good breath sounds bilaterally. No audible rales rhonchi or wheezing was noted. CARDIOVASCULAR: There is a regular rate and rhythm without any murmurs gallops or rubs. ABDOMEN: Abdomen is distended but soft. SKIN: Skin is clear with no lesions or rashes and otherwise unremarkable. NEUROLOGIC: Patient is alert and oriented x3. Cranial nerves II through XII are grossly intact. Motor and sensory are also intact. Normal speech, volume and content. Symmetrical smile. MUSCULOSKELETAL: Normal extremities with adequate strength and full range of motion. 2+ edema bilaterally LYMPHATICS: No significant lymphadenopathy is noted PSYCHIATRIC: Normal psychiatric evaluation. Limitations: no limitations Course Vital Signs 07/09/20 13:21 Temperature 98.3 F Pulse Rate 90 Respiratory 18 Rate Blood Pressure 213/99 O2 Sat by Pulse 98 Oximetry Medical Decision Making - Medical Decision Making EKG shows normal sinus rhythm at 84 bpm AL interval is on a 36 dresses 90 QT interval 38 QTC is 450. Patient's EKG shows no ST segment elevation or depression. Chest x-ray shows mild pulmonary edema. I attempted to contact her infectious disease physician from [facility] and I had to get a call also spoke with Dr. Bragg he agreed to admit the patient admitted the patient I wrote admitting orders. After patient was admitted I spoke with the infectious disease doctor from [place] admission and she wanted the patient changed from vancomycin the daptomycin. - Lab Data Result diagrams: 07/09/20 14:17 07/09/20 14:17 Lab Results 07/09/20 07/09/20 07/09/20 Range/Units 14:17 14:17 14:17 WBC 4.1 (3.8-10.6) k/uL RBC 2.54 L (3.80-5.40) m/uL Hgb 7.8 L (11.4-16.0) gm/dL Hct 23.9 L (34.0-46.0) % MCV 94.3 (80.0-100.0) fL MCH 30.9 (25.0-35.0) pg MCHC 32.8 (31.0-37.0) g/dL RDW 18.5 H (11.5-15.5) % Plt Count 182 D (150-450) k/uL MPV 7.0 Neutrophils % 84 % Lymphocytes % 7 % Monocytes % 6 % Eosinophils % 2 % Basophils % 0 % Neutrophils # 3.5 (1.3-7.7) k/uL Lymphocytes # 0.3 L (1.0-4.8) k/uL Monocytes # 0.3 (0-1.0) k/uL Eosinophils # 0.1 (0-0.7) k/uL Basophils # 0.0 (0-0.2) k/uL Anisocytosis Slight Macrocytosis Slight PT 11.0 (9.0-12.0) sec INR 1.0 (<1.2) APTT 23.8 (22.0-30.0) sec Sodium 137 (137-145) mmol/L Potassium 4.7 (3.5-5.1) mmol/L Chloride 92 L (98-107) mmol/L Carbon Dioxide 32 H (22-30) mmol/L Anion Gap 13 mmol/L BUN 44 H (7-17) mg/dL Creatinine 5.45 H (0.52-1.04) mg/dL Est GFR (CKD-EPI)AfAm 10 (>60 ml/min/1.73 sqM) Est GFR (CKD-EPI)NonAf 8 (>60 ml/min/1.73 sqM) Glucose 99 (74-99) mg/dL Calcium 8.8 (8.4-10.2) mg/dL Magnesium 1.5 L (1.6-2.3) mg/dL Total Bilirubin 0.8 (0.2-1.3) mg/dL AST 21 (14-36) U/L ALT 9 (4-34) U/L Alkaline Phosphatase 112 (38-126) U/L Total Protein 6.4 (6.3-8.2) g/dL Albumin 3.9 (3.5-5.0) g/dL Disposition Clinical Impression: Pulmonary edema, Leg edema, History of MRSA infection, Volume overload Disposition: ADMITTED IP TO THIS [facility] Referrals: David Bragg MD [Primary Care Provider] - 1-2 days Time of Disposition: 15:31
[2020-07-09] MEDS ORDERED: DAPTOmycin 500 MG in SODIUM CHLORIDE 0.9% 50 ML IVPB ONE (16:30)
[2020-07-09] MEDS ORDERED: MAGNESIUM SULFATE-D5W PMX 1 GM in DEXTROSE/WATER 1 100ML.BAG IVPB ONE (17:19)
[2020-07-09] MEDS ORDERED: ALBUTEROL NEBULIZED 2.5 MG/3 ML INHALATION PRN (17:22)
[2020-07-09] MEDS ORDERED: LIDOCAINE-PRILOCAINE 2.5-2.5% CREAM 5 GM TUBE TOPICAL PRN (17:22)
[2020-07-09] MEDS ORDERED: DEXTROMETHORPHAN POLISTIREX 30 MG/5 ML PO PRN (17:22)
[2020-07-09 18:03] LABS: Glucose,Whole Blood 201 mg/dL (75-99)
[2020-07-09] MEDS: INSULIN ASPART (NovoLOG) 100 UNIT/ML VIAL SQ SCH ×2 (18:11)
[2020-07-09] MEDS: traMADol 50 MG TAB PO SCH (18:17)
[2020-07-09] MEDS: HYDROcodone/APAP 7.5-325MG 1 EACH TAB PO SCH (18:17)
[2020-07-09] MEDS: hydrALAZINE HCL 50 MG TAB PO SCH ×2 (18:17→22:30)
[2020-07-09] MEDS: SODIUM FERRIC GLUCONAT-SUCROSE 125 MG in SODIUM CHLORIDE 0.9% 100 ML IVPB SCH (19:24)
[2020-07-09] MEDS: cloNIDine HCL 0.1 MG TAB PO SCH (19:25)
[2020-07-09] MEDS: ATORVASTATIN 40 MG TAB PO SCH (19:25)
[2020-07-09] MEDS: MONTELUKAST 10 MG TAB PO SCH (19:25)
[2020-07-09] MEDS: SILDENAFIL 20 MG TAB PO SCH (19:26)
[2020-07-09] MEDS: rifAMPin 300 MG CAP PO SCH (19:26)
[2020-07-09] MEDS: BENZONATATE 100 MG CAP PO SCH (19:31)
[2020-07-09] MEDS: HYDROmorphone 0.5 MG/0.5 ML SYRINGE IVP PRN (19:31)
--- NOTE | 2020-07-09 19:36 | HP ---
HISTORY AND PHYSICAL This patient is a 55-year-old white female with hypertension, fluid overload, and was told by [facility] infectious disease doctor to come to the emergency room to get started on daptomycin after a vancomycin-resistant drug for endocarditis was found. The patient was told to stop vancomycin, go on daptomycin, and the patient came to the hospital to start on daptomycin as well as for fluid overload. She has a history of endocarditis. HOME MEDICATIONS: 1. Clonidine 0.3 mg t.i.d. 2. Compazine 5 mg b.i.d. 3. Humalog 10 units subcutaneously before meals t.i.d. 4. Apresoline 100 q.i.d. 5. Moccasin 7.5 q.8 hours. 6. Singulair 10 mg daily. 7. Basaglar daily at night. 8. Albuterol. 9. ProAir HFA 2 puffs q.4 p.r.n. 10.Lasix 80 mg b.i.d. 11.Humalog before meals and at bedtime. 12.Revatio 20 mg t.i.d. 13.Tessalon Perles p.r.n. 14.Flexeril 5 mg at night. 15.Ultram 50 q.12. 16.Lidocaine EMLA topically daily. 17.Requip 1 mg t.i.d. 18.Pataday 2 drops both eyes b.i.d. 19.Lipitor 40 mg nightly. 20.Lopressor 50 t.i.d. 21.She has been on vancomycin. 22.Rifampin 300 t.i.d. ALLERGIES: CIPRO and SEASICK ANESTHETIC AGENTS WITH AMIDE AND ESTERS, IODINE. REVIEW OF SYSTEMS: Fourteen-point review of systems as mentioned above. Weakness, fatigue, fluid overload, history of endocarditis, fever, chills. PAST MEDICAL HISTORY: Diabetes mellitus, end-stage renal disease, dyslipidemia, hypertension, endocarditis, pneumonia, renal disease, hypothyroidism, diabetes mellitus, hypertriglyceridemia, chronic uremia, UTI, possible liver disease, history of MRSA. PAST SURGICAL HISTORY: Cardiac valve replacement, orthopedic surgery, uterine ablation. FAMILY HISTORY: Mother with cancer. Father with hypertension, alcoholism. PHYSICAL EXAMINATION: Well-developed, well-nourished white female, nontoxic. Well hydrated. Not in acute distress. NECK: Supple. No mass. Pupils equal, round, reactive to light and accommodation. LUNGS: Rales at the base. CARDIOVASCULAR: S1, S2. ABDOMEN: Soft, nontender. SKIN: No rash excoriation, bruising. NEUROLOGIC: Alert and oriented x3. PSYCH: Fair mood and affect. HEMATOLOGIC: Pitting edema, bilateral legs. VITAL SIGNS: Temperature 98.3, pulse 80s to 90, respiratory rate 16 to 18, blood pressure 213/99. EKG shows sinus rhythm, chest x-ray pulmonary edema. ASSESSMENT: 1. Hypertension acceleration. 2. Vancomycin-resistant enterococcus. 3. Acute on chronic anemia. Hemoglobin is 7.8. 4. End-stage renal disease. 5. Fluid overload. Started daptomycin per [facility] infectious disease doctor. Consult Dr. Coker to set up long-term care for endocarditis due to vancomycin resistance. Pulmonary edema will be treated with dialysis. Anemia will be treated with Venofer. Please see further orders. MMODL / IJN: [id number] /
[2020-07-09 22:26] LABS: Glucose,Whole Blood 183 mg/dL (75-99)
[2020-07-09] MEDS: CYCLOBENZAPRINE 5 MG TAB PO SCH (22:30)
[2020-07-09] MEDS: METOPROLOL TARTRATE 50 MG TAB PO SCH (22:30)
[2020-07-09] MEDS: INSULIN DETEMIR (LEVEMIR) 100 UNIT/ML SYR SQ SCH (22:30)
--- NOTE | 2020-07-09 23:45 | CONS ---
CONSULTATION DATE OF SERVICE: 07/09/2020 REASON FOR CONSULTATION: Endocarditis and MRSA bacteremia. HISTORY OF PRESENT ILLNESS: The patient is a 55-year-old female with a past medical history significant for MRSA endocarditis, status post surgery at [facility], also with a Perm- A-Cath infection. The patient was recently admitted at this facility and the patient did have MRSA bacteremia. The patient did have further workup including a TK which did show echogenicity on the left ventricle wall with concern for possible septic. The patient was subsequently transferred to [facility]. Patient mentioned she did have a repeat TK done and was told there was no infection of the heart. The patient subsequently did have removal of her right subclavian Perma catheter and the patient was kept off dialysis for short time before any Aeyc-H-afocizrx was placed. The patient antibiotic at the same time was switched over to daptomycin and she was told that vancomycin was not controlling her current infection. The patient mentioned since there was a hold on her dialysis because of no Usny-O-vonyqcrr, she started having more swelling in the belly and lower extremity that seemed to be getting worse as the time passes by. The patient presented to the ER today with increased abdominal swelling as well as lower extremity swelling. The patient denies having any fever or any chills. Denies having any chest pain. No shortness of breath or cough. Abdominal distention but no significant pain. No nausea, vomiting and no diarrhea. On presentation to the hospital, the patient was afebrile. She is currently sating 98% on room air. The patient did have a normal white count. Liver enzymes are normal. Arnett PCR was negative. The patient has been continued on daptomycin. Infectious Disease consulted for further management of antibiotic therapy while inpatient. REVIEW OF SYSTEMS: Positive points have been mentioned in HPI. Rest of systems are negative. PAST MEDICAL HISTORY: End-stage renal disease, on hemodialysis through the right chest, Pghx-K-vexngckl. The patient did have endocarditis with Wikd-N-Cytmcppz infection, hypertension, pneumonia, hyperlipidemia, diabetes mellitus, heart failure. PAST SURGICAL HISTORY: Heart valve replacement, uterine ablation, left forearm revision. SOCIAL HISTORY: Denies smoking, drinking or drug use. FAMILY HISTORY: No pertinent findings noticed. ALLERGIES: To CIPROFLOXACIN, IODINATED CONTRAST DYE. MEDICATIONS: The patient is currently on Alger, Ventolin, vitamin C, Lipitor, Tessalon Perles, Catapres, Flexeril, daptomycin 500 mg Q 48 hours. She is on Lasix, hydralazine, Dilaudid, NovoLog, Levemir, Lopressor, Singulair, Compazine, Rifampin, Requip, Ultram. PHYSICAL EXAMINATION: On examination, her blood pressure is 137/76, pulse of 90, temperature 98.4. She is 98% on room air. General description: The patient is a middle-aged female lying in bed in no distress. HEENT: Examination shows slight pallor. No scleral icterus. Oral mucous membranes dry. No pharyngeal erythema or thrush. NECK: Trachea central. No thyromegaly. LUNGS: Unlabored breathing, decreased breath sounds at bases. No wheeze. HEART: S1, S2. Regular rate and rhythm. ABDOMEN: Soft, distended. No guarding. No rigidity. EXTREMITIES: 2+ edema of the feet. SKIN examination: No rash or mass palpable. NEUROLOGICAL: Patient is awake, alert, oriented times three. Mood and affect normal. LABS: Hemoglobin 7.2, white count 4.1. BUN of 44, creatinine 5.45. Chest x-ray with fluid overload. Blood culture obtained, currently pending. DIAGNOSTIC IMPRESSION AND PLAN: Patient with complicated history as far as MRSA bacteremia is concerned in this patient who did have multiple surgeries with removal of the Sigu-F-luydpkos as well as heart valve placement with recent switch of antibiotics to the daptomycin. Previously treated with vancomycin. Currently, presenting to the hospital with abdominal distention, likely from fluid overload. PLAN: 1. Blood culture has been repeated. Those will be followed. 2. The patient is currently on daptomycin 500 mg q.48h hours to be done after dialysis. 3. will be continued along with rifampin. 4. We will follow on clinical condition and further adjust medication if needed. Thank you for this consultation. Will follow this patient along with you. MMODL / IJN: [id number] /
[2020-07-10] MEDS: HYDROcodone/APAP 7.5-325MG 1 EACH TAB PO SCH ×3 (01:55→17:55)
[2020-07-10] MEDS: rifAMPin 300 MG CAP PO SCH ×3 (05:00→19:31)
[2020-07-10] MEDS: SILDENAFIL 20 MG TAB PO SCH ×3 (05:00→19:31)
[2020-07-10] MEDS: BENZONATATE 100 MG CAP PO SCH ×3 (05:00→19:31)
[2020-07-10] MEDS: FUROSEMIDE 80 MG TAB PO SCH ×2 (05:00→15:54)
[2020-07-10] MEDS: ASCORBIC ACID 500 MG TAB PO SCH (05:00)
[2020-07-10] MEDS: cloNIDine HCL 0.1 MG TAB PO SCH ×3 (05:00→19:31)
[2020-07-10] MEDS: traMADol 50 MG TAB PO SCH ×2 (05:01→17:55)
[2020-07-10 07:49] LABS: Glucose,Whole Blood 65 mg/dL (75-99)
[2020-07-10] MEDS: METOPROLOL TARTRATE 50 MG TAB PO SCH ×3 (07:52→20:50)
[2020-07-10] MEDS: hydrALAZINE HCL 50 MG TAB PO SCH ×4 (07:52→20:50)
[2020-07-10] MEDS: HYDROmorphone 0.5 MG/0.5 ML SYRINGE IVP PRN ×3 (07:52→20:49)
[2020-07-10] MEDS: INSULIN ASPART (NovoLOG) 100 UNIT/ML VIAL SQ SCH ×7 (07:56→20:52)
[2020-07-10 08:19] LABS: Glucose,Whole Blood 109 mg/dL (75-99)
[2020-07-10 09:17] LABS: Basophils # (A) 0.02 X 10*3/uL (0.00-0.10); Basophils % (A) 0.5 %; Eosinophils # (A) 0.06 X 10*3/uL (0.04-0.35); Eosinophils % (A) 1.5 %; HCT 24.6 % (37.2-46.3); HGB 7.6 g/dL (12.0-15.0); Lymphocytes # (A) 0.31 X 10*3/uL (0.90-5.00); Lymphocytes % (A) 7.8 %; MCH 30.8 pg (27.0-32.0); MCHC 30.9 g/dL (32.0-37.0); MCV 99.6 fL (80.0-97.0); Mean Platelet Volume 9.9 fL (9.5-12.2); Monocytes # (A) 0.32 X 10*3/uL (0.20-1.00); Monocytes % (A) 8.1 %; Neutrophils # (A) 3.14 X 10*3/uL (1.80-7.70); Neutrophils % (A) 79.1 %; Platelet Count 151 X 10*3/uL (140-440); RBC 2.47 X 10*6/uL (4.10-5.20); RDW 18.1 % (11.5-14.5); WBC 3.97 X 10*3/uL (4.50-10.00)
[2020-07-10] MEDS: ONDANSETRON 4 MG/2 ML VIAL IVP PRN ×2 (09:22→19:31)
[2020-07-10 09:46] LABS: African American GFR (CKD) 8.2 (60.0-200.0); Albumin 3.8 g/dL (3.80-4.90); Albumin/Globulin Ratio 1.41 (1.60-3.17); Anion Gap 9.1 mmol/L (4.00-12.00); BUN/Creat Ratio 8.39 Ratio (12.00-20.00); Calcium 8.7 mg/dL (8.7-10.3); Carbon Dioxide 35.9 mmol/L (21.6-31.8); Globulin 2.7 g/dL (1.6-3.3); Non-African American GFR(CKD) 7.1 (60.0-200.0); Potassium 4.6 mmol/L (3.5-5.5); Total Bilirubin 0.5 mg/dL (0.2-1.2); Total Protein 6.5 g/dL (6.2-8.2)
[2020-07-10 11:20] LABS: Glucose,Whole Blood 165 mg/dL (75-99)
[2020-07-10] MEDS ORDERED: hydrALAZINE HCL 20 MG/ML 1 ML VIAL IVP PRN (12:05)
--- NOTE | 2020-07-10 12:07 | P.NPCON ---
History of Present Illness - Reason for Consult end stage renal disease - History of Present Illness Reason for consultation: End-stage renal disease History of present illness: Patient is a 55-year-old female seen in consultation for end-stage renal disease. She is maintained on hemodialysis on Thursday schedule. She denies missing any dialysis treatments. Patient states since she left [facility] she's been progressively getting more swollen. She presented to the hospital due to worsening edema. She denies chest pain or shortness of breath. Patient has history of MRSA endocarditis and underwent valve repair in March 2020 as well as permacath infection. Patient states permacath was replaced while she was at [facility] in June 2020. She underwent TK at [facility] prior admission and states there was no infection in the heart. She is currently on IV daptomycin as well as rifampin. Blood pressure in the higher side. No vomiting or diarrhea. No fever or chills. Oral intake fair. Vital signs are stable. General: The patient appeared well nourished and normally developed. HEENT: Head exam is unremarkable. Neck is without jugular venous distension. LUNGS: Breath sounds decreased. HEART: Rate and Rhythm are regular. ABDOMEN: Soft, distention noted. EXTREMITITES: 2+ edema. 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 hemodialysis for acute kidney injury 2 months in 2009 after pancreatic OR, 11/2015 diagnosed w/ chronic kidney disease-hemodialysis -last hemodialysis 06/02/19, IDDM type II, past DKA, UTI, chronic anemia, frequent body cramping, occasional low back pain, carter's palsy x2, past L leg fx, possible liver disease-recent liver bx-results unknown per pt. History of Any Multi-Drug Resistant Organisms: MRSA Date of last positivie culture/infection: 06/10/20 MDRO Source:: Blood Past Surgical History: Cardiac Valve Replacement, Orthopedic Surgery, Uterine Ablation Additional Past Surgical History / Comment(s): Recent liver biopsy done at [facility] but pt states they have never contacted her with the results, 08/26/17 colonoscopy with polypectomy/bx, pancreatic resection at [facility] 2009, bone marrow biopsies X2-last one 05/19/16,. dialysis chest port x 2 with removal s, Left arm shunt placement for dialysis - December 2015 and a revision done with shunt. Left forearm Vein Revision - October 2019 Past Anesthesia/Blood Transfusion Reactions: No Reported Reaction Additional Past Anesthesia/Blood Transfusion Reaction / Comment(s): Pt has received blood transfusions without reaction. Past Psychological History: No Psychological Hx Reported Additional Psychological History / Comment(s): Pt resides at her mother in laws home at this time with spouse. They are her mother in laws caretakers. She is independent. She uses no assistive device. She drives. Smoking Status: Never smoker Past Alcohol Use History: None Reported Additional Past Alcohol Use History / Comment(s): Patient is a lifelong nonsmoker. Past Drug Use History: None Reported - Past Family History Brother(s) Family Medical History: No Reported History Mother Family Medical History: Cancer Additional Family Medical History / Comment(s): . Father Family Medical History: Hypertension Additional Family Medical History / Comment(s): alcoholism Medications and Allergies Home Medications Medication Instructions Recorded Confirmed Type cloNIDine HCL 0.3 mg PO TID@0530,1300,1900 12/16/16 07/09/20 History Prochlorperazine [Compazine] 5 mg PO BID PRN 10/26/17 07/09/20 History INSULIN LISPRO (humaLOG) [humaLOG] 10 unit SQ AC-TID 07/12/18 07/09/20 History hydrALAZINE HCL [Apresoline] 100 mg PO QID 12/14/18 07/09/20 History HYDROcodone/APAP 7.5-325MG [[place] 1 tab PO Q8H 11/08/19 07/09/20 History 7.5-325] Montelukast [Singulair] 10 mg PO HS@1900 11/08/19 07/09/20 History Insulin Glargine,Hum.rec.anlog See Protocol SQ HS 12/02/19 07/09/20 History [Basaglar Kwikpen U-100] Albuterol Sulfate [Proair Hfa] 2 puff INHALATION RT-Q6H PRN 01/28/20 07/09/20 History Furosemide [Lasix] 80 mg PO BID@0530,1300 09/19/20 03/01/21 History INSULIN LISPRO (HumaLOG) [humaLOG] See Protocol SQ ACHS 03/17/20 07/09/20 History Sildenafil [Revatio] 20 mg PO TID@0530,1300,1900 04/20/20 07/09/20 History Benzonatate [Tessalon Perles] 100 mg PO TID@0530,1300,1900 05/13/20 07/09/20 History Cyclobenzaprine [Flexeril] 5 mg PO HS 05/13/20 07/09/20 History traMADol HCL [Ultram] 50 mg PO Q12H 05/13/20 07/09/20 History Lidocaine-Prilocaine Cream [Emla 1 applic TOPICAL DIRECTED PRN 06/09/20 07/09/20 History Cream 2.5%/2.5%] rOPINIRole HCL [Requip] 1 mg PO TID@0530,1300,1900 06/09/20 07/09/20 History Olopatadine HCl [Pataday] 1 - 2 drop BOTH EYES BID PRN 06/14/20 07/09/20 History Ascorbic Acid [Vitamin C] 500 mg PO DAILY@0530 07/09/20 07/09/20 History Atorvastatin [Lipitor] 40 mg PO HS@1900 07/09/20 07/09/20 History Dextromethorphan Polistirex 60 mg PO Q12H PRN 07/09/20 07/09/20 History [Delsym] Metoprolol Tartrate [Lopressor] 50 mg PO TID 07/09/20 07/09/20 History Vancomycin 1,000 mg IVPB TUTHSA 07/09/20 07/09/20 History rifAMPin [Rifampin] 300 mg PO TID@0530,1300,1900 07/09/20 07/09/20 History Allergies Allergy/AdvReac Type Severity Reaction Status Date / Time Anesthetics - Amide Type - Allergy Unknown Verified 07/09/20 16:06 Select A Anesthetics - Andree Type- Allergy Unknown Verified 07/09/20 16:06 Parabens ciprofloxacin [From Cipro] AdvReac AFFECTED Verified 07/09/20 16:06 EYESIGHT ciprofloxacin HCl AdvReac AFFECTED Verified 07/09/20 16:06 [From Cipro] EYESIGHT Iodinated Contrast Media AdvReac RENAL Verified 07/09/20 16:06 FAILURE Physical Exam Vitals: Vital Signs Temp Pulse Pulse Resp BP BP Pulse Ox 07/10/20 07:46 76 07/10/20 07:00 97.7 F 85 16 189/91 99 07/10/20 02:00 97.9 F 81 185/93 100 07/09/20 19:20 98.4 F 98 186/86 98 07/09/20 17:48 98.4 F 93 16 137/76 98 07/09/20 17:28 97.9 F 90 07/09/20 16:24 90 22 183/97 99 07/09/20 13:21 98.3 F 90 18 213/99 98 Intake and Output 07/09/20 07/10/20 07/10/20 22:59 06:59 14:59 Intake Total 360 Balance 360 Intake: Oral 360 Other: Voiding Method CAPD # Voids 0 Weight 80.6 kg Results - Lab Results Most recent lab results Calcium 8.7 mg/dL (8.7-10.3) 07/10/20 04:47 Magnesium 1.5 mg/dL (1.6-2.3) L 07/09/20 14:17 07/10/20 04:47 07/10/20 04:47 Assessment and Plan Plan: Assessment: 1. End-stage renal disease maintained on hemodialysis on Thursday schedule. 2. Volume overload. 3. MRSA bacteremia due to permacath infection which was changed in June 2020. Also has history of endocarditis and underwent valve repairment in March 2020 at [facility]. 4. Volume overload. 5. Hypertension with chronic kidney disease. Blood pressure high. 6. Diabetes mellitus. 7. Chronic kidney disease mineral bone disease. 8. Pulmonary hypertension. 9. Anemia of chronic disease. Plan: Hemodialysis today with goal 4 L of defecation. Plan for another treatment tomorrow mostly for ultrafiltration. Antibiotics per infectious disease. Add hydralazine 10 mg IV every 4 hours as needed for systolic blood pressure greater than 160. Expect improvement in blood pressure post ultrafiltration. Check phosphorus level. Add Aranesp. Thank you for the consultation. I will continue to follow the patient with you during her hospital stay.
[2020-07-10] MEDS ORDERED: DARBEPOETIN ALFA 40 MCG/0.4 ML SYRINGE SQ SCH (13:00)
[2020-07-10 17:17] LABS: Glucose,Whole Blood 108 mg/dL (75-99)
--- NOTE | 2020-07-10 17:59 | PN ---
PROGRESS NOTE This is a 55-year-old white female who was started on IV daptomycin. She is going to get it with dialysis as an outpatient. She was told that vancomycin is not controlling her current infection. She had increased abdominal swelling. She is getting dialysis today as well as yesterday. CARDIOVASCULAR: S1, S2 with 2/6 systolic ejection murmur at the base, mid-clavicular line. Hemoglobin 7.2, white count 4.1, BUN is 44, creatinine 5.45. LUNGS: Clear. EXTREMITIES: Extremities show 2 to 3+ edema. Generalized anasarca. She had MRSA bacteremia, remains on IV daptomycin until cleared by Infectious Disease. She will also get dialysis again tomorrow and possibly be discharged home when cleared by kidney disease as well as Infectious Disease. MMODL / IJN: [id number] /
[2020-07-10] MEDS: SODIUM FERRIC GLUCONAT-SUCROSE 125 MG in SODIUM CHLORIDE 0.9% 100 ML IVPB SCH (18:24)
[2020-07-10] MEDS: MONTELUKAST 10 MG TAB PO SCH (19:31)
[2020-07-10] MEDS: CYCLOBENZAPRINE 5 MG TAB PO SCH (19:31)
[2020-07-10] MEDS: ATORVASTATIN 40 MG TAB PO SCH (19:31)
[2020-07-10 20:44] LABS: Glucose,Whole Blood 149 mg/dL (75-99)
[2020-07-10] MEDS: INSULIN DETEMIR (LEVEMIR) 100 UNIT/ML SYR SQ SCH (20:53)
[2020-07-10] MEDS: PROCHLORPERAZINE 5 MG TAB PO PRN (23:36)
[2020-07-11] MEDS: ONDANSETRON 4 MG/2 ML VIAL IVP PRN ×2 (01:06→18:13)
[2020-07-11] MEDS: HYDROcodone/APAP 7.5-325MG 1 EACH TAB PO SCH ×3 (01:06→17:28)
--- NOTE | 2020-07-11 01:11 | PN ---
PROGRESS NOTE DATE OF SERVICE: 07/10/2020 REASON FOR FOLLOWUP: MRSA bacteremia secondary to Perm-A-Cath infection. INTERVAL HISTORY: The patient is currently afebrile. The patient is breathing comfortably. The patient denies having any chest pain, shortness of breath, cough, abdominal distention persists. No nausea. No vomiting. No diarrhea. PHYSICAL EXAMINATION: Her blood pressure 162/82 with a pulse of 69, temperature 98.6. She is 97% on room air. GENERAL description is a middle-aged female lying in bed in no distress. RESPIRATORY system: Unlabored breathing. Clear to auscultation anteriorly. HEART S1, S2. Regular rate and rhythm. ABDOMEN: Soft, no tenderness. LABS: Hemoglobin 7.8, white count 3.97. Blood culture has been negative. DIAGNOSTIC IMPRESSION AND PLAN: Patient with MRSA bacteremia thought to be related to the Perm-A-Cath infection that has been discontinued. The patient is currently covered with daptomycin to continue to finish a course of therapy and monitor clinical course closely. MMODL / IJN: [id number] /
[2020-07-11] MEDS: BENZONATATE 100 MG CAP PO SCH ×3 (04:51→19:54)
[2020-07-11] MEDS: cloNIDine HCL 0.1 MG TAB PO SCH ×3 (04:51→19:54)
[2020-07-11] MEDS: FUROSEMIDE 80 MG TAB PO SCH ×2 (04:52→12:33)
[2020-07-11] MEDS: SILDENAFIL 20 MG TAB PO SCH ×3 (04:52→19:55)
[2020-07-11] MEDS: traMADol 50 MG TAB PO SCH ×2 (04:52→17:18)
[2020-07-11] MEDS: rifAMPin 300 MG CAP PO SCH ×3 (04:52→19:55)
[2020-07-11] MEDS: ASCORBIC ACID 500 MG TAB PO SCH (04:52)
[2020-07-11 06:46] LABS: Glucose,Whole Blood 173 mg/dL (75-99)
[2020-07-11] MEDS: INSULIN ASPART (NovoLOG) 100 UNIT/ML VIAL SQ SCH ×7 (07:58→19:54)
[2020-07-11] MEDS: hydrALAZINE HCL 50 MG TAB PO SCH ×4 (08:01→19:54)
[2020-07-11] MEDS: METOPROLOL TARTRATE 50 MG TAB PO SCH ×3 (08:01→19:54)
[2020-07-11] MEDS: HYDROmorphone 0.5 MG/0.5 ML SYRINGE IVP PRN ×2 (10:11→21:08)
[2020-07-11 11:18] LABS: Glucose,Whole Blood 158 mg/dL (75-99)
--- NOTE | 2020-07-11 12:08 | P.PN ---
Subjective Patient is seen in follow-up for her incisional disease. She is making on hemodialysis on Thursday schedule. Still quite edematous. Tolerated 3.3 L ultrafiltration yesterday. Oral intake fair. No vomiting or diarrhea. Vital signs are stable. General: The patient appeared well nourished and normally developed. HEENT: Head exam is unremarkable. Neck is without jugular venous distension. LUNGS: Breath sounds decreased. HEART: Rate and Rhythm are regular. ABDOMEN: Soft, nontender. Distention noted. EXTREMITITES: 2+ edema. Objective - Vital Signs Vital signs: Vital Signs Temp 98.2 F 07/11/20 07:00 Pulse 85 07/11/20 07:00 Resp 18 07/11/20 08:00 BP 170/79 07/11/20 07:00 Pulse Ox 96 07/11/20 07:00 Intake & Output 07/10/20 07/11/20 07/11/20 18:59 06:59 18:59 Intake Total 1020 180 Output Total 3321 Balance -2301 180 Weight 79.3 kg Intake: Oral 720 180 Hemodialysis 300 Output: Hemodialysis 3321 Other: Voiding Method CAPD CAPD # Voids 1 2 - Labs CBC & Chem 7: 07/10/20 04:47 07/10/20 04:47 Labs: Abnormal Lab Results - Last 24 Hours (Table) 07/10/20 07/10/20 07/11/20 Range/Units 17:15 20:42 06:43 POC Glucose (mg/dL) 108 H 149 H 173 H (75-99) mg/dL 07/11/20 Range/Units 11:17 POC Glucose (mg/dL) 158 H (75-99) mg/dL Microbiology - Last 24 Hours (Table) 07/09/20 14:25 Blood Culture - Preliminary Blood No Growth after 24 hours 07/09/20 14:00 Blood Culture - Preliminary Blood No Growth after 24 hours Assessment and Plan Plan: Assessment: 1. End-stage renal disease maintained on hemodialysis on Thursday schedule. 2. Volume overload. 3. MRSA bacteremia due to permacath infection which was changed in June 2020. Also has history of endocarditis and underwent valve repairment in March 2020 at [facility]. 4. Hypertension with chronic kidney disease. Blood pressure on the higher side. Partially volume sensitive. 5. Diabetes mellitus. 6. Chronic kidney disease mineral bone disease. Phosphorous 5.1. 7. Pulmonary hypertension. 9. Anemia of chronic disease. Maintained on Aranesp. Plan: Hemodialysis again today with goal 3 L ultrafiltration. Plan for another treatment tomorrow. Antibiotics per infectious disease. Maintain current antihypertensives. Expect further improvement in blood pressure post ultrafiltration.
--- NOTE | 2020-07-11 14:06 | PN ---
PROGRESS NOTE DATE OF SERVICE: 07/11/2020 REASON FOR FOLLOWUP: MRSA bacteremia. INTERVAL HISTORY: The patient is currently afebrile. Patient is breathing comfortably. The patient denies having any chest pain. No shortness of breath. Occasional cough. Abdominal distention has slightly decreased. No nausea, no vomiting and no diarrhea. PHYSICAL EXAMINATION: Blood pressure 170/79 with pulse of 85, temperature 98.2. She is 96% on room air. General description is a middle-aged female up in the chair in no distress. RESPIRATORY SYSTEM: Unlabored breathing, clear to auscultation anteriorly. HEART: S1, S2. Regular rate and rhythm. ABDOMEN: Soft, no tenderness. EXTREMITIES: 2+ edema of feet. LABS: No new labs have been obtained today. Blood culture has been negative. DIAGNOSTIC IMPRESSION AND PLAN: Patient with methicillin-resistant Staphylococcus aureus bacteremia secondary to infected Perm-A-Cath, which has been discontinued. Patient is covered with daptomycin to continue to finish a . Continue supportive care. MMODL / IJN: [id number] /
--- NOTE | 2020-07-11 15:51 | PN ---
PROGRESS NOTE A 55-year-old white female who is admitted for a drug-resistant bacteremia with a history of endocarditis. She has been afebrile. comfortably. She is set up with daptomycin with dialysis as an outpatient. Repeat blood cultures are negative. Blood pressure is 170/79, pulse 80 to 85, temperature 98.2, O2 is 96 on room air. CARDIAC: S1, S2. ABDOMEN: Soft. LUNGS: Are clear. EXTREMITIES: No cyanosis, clubbing, edema. Blood culture negative. She has MRSA bacteremia secondary to infected Perm-A-Cath which has been discontinued and with prior endocarditis which was treated with surgery and IV antibiotics. She is continued with daptomycin until discontinued by Infectious Disease. She had no blood cultures for 24 hours, both blood cultures. We expect to discharge her home tomorrow after dialysis as she had a fluid overload on admission at which time she has been dialyzed yesterday, today and tomorrow, possibly will discharge home. MMODL / IJN: [id number] /
[2020-07-11 16:36] LABS: Glucose,Whole Blood 121 mg/dL (75-99)
[2020-07-11] MEDS ORDERED: DAPTOmycin 500 MG in SODIUM CHLORIDE 0.9% 50 ML IVPB SCH (18:00)
[2020-07-11] MEDS: SODIUM FERRIC GLUCONAT-SUCROSE 125 MG in SODIUM CHLORIDE 0.9% 100 ML IVPB SCH (18:07)
[2020-07-11 19:49] LABS: Glucose,Whole Blood 198 mg/dL (75-99)
[2020-07-11] MEDS: CYCLOBENZAPRINE 5 MG TAB PO SCH (19:54)
[2020-07-11] MEDS: ATORVASTATIN 40 MG TAB PO SCH (19:54)
[2020-07-11] MEDS: MONTELUKAST 10 MG TAB PO SCH (19:54)
[2020-07-11] MEDS: PROCHLORPERAZINE 5 MG TAB PO PRN (21:08)
[2020-07-11] MEDS: INSULIN DETEMIR (LEVEMIR) 100 UNIT/ML SYR SQ SCH (21:35)
[2020-07-12] MEDS: HYDROcodone/APAP 7.5-325MG 1 EACH TAB PO SCH ×3 (00:48→17:32)
[2020-07-12] MEDS: ONDANSETRON 4 MG/2 ML VIAL IVP PRN ×2 (00:48→19:42)
[2020-07-12] MEDS: traMADol 50 MG TAB PO SCH ×2 (05:23→17:32)
[2020-07-12] MEDS: FUROSEMIDE 80 MG TAB PO SCH ×2 (05:23→14:29)
[2020-07-12] MEDS: cloNIDine HCL 0.1 MG TAB PO SCH ×3 (05:23→19:40)
[2020-07-12] MEDS: ASCORBIC ACID 500 MG TAB PO SCH (05:23)
[2020-07-12] MEDS: rifAMPin 300 MG CAP PO SCH ×3 (05:23→19:41)
[2020-07-12] MEDS: BENZONATATE 100 MG CAP PO SCH ×3 (05:23→19:41)
[2020-07-12] MEDS: SILDENAFIL 20 MG TAB PO SCH ×3 (05:24→19:41)
[2020-07-12] MEDS: INSULIN ASPART (NovoLOG) 100 UNIT/ML VIAL SQ SCH ×7 (08:12→20:11)
[2020-07-12] MEDS: METOPROLOL TARTRATE 50 MG TAB PO SCH ×3 (08:21→20:58)
[2020-07-12] MEDS: HYDROmorphone 0.5 MG/0.5 ML SYRINGE IVP PRN ×3 (08:21→19:42)
[2020-07-12] MEDS: hydrALAZINE HCL 50 MG TAB PO SCH ×4 (08:22→20:58)
[2020-07-12 09:06] LABS: Basophils # (A) 0.02 X 10*3/uL (0.00-0.10); Basophils % (A) 0.5 %; Eosinophils # (A) 0.07 X 10*3/uL (0.04-0.35); Eosinophils % (A) 1.6 %; HCT 25.6 % (37.2-46.3); HGB 7.8 g/dL (12.0-15.0); Lymphocytes # (A) 0.29 X 10*3/uL (0.90-5.00); Lymphocytes % (A) 6.6 %; MCH 30.6 pg (27.0-32.0); MCHC 30.5 g/dL (32.0-37.0); MCV 100.4 fL (80.0-97.0); Mean Platelet Volume 10.1 fL (9.5-12.2); Monocytes # (A) 0.44 X 10*3/uL (0.20-1.00); Neutrophils # (A) 3.48 X 10*3/uL (1.80-7.70); Neutrophils % (A) 78.6 %; Platelet Count 159 X 10*3/uL (140-440); RBC 2.55 X 10*6/uL (4.10-5.20); RDW 18.2 % (11.5-14.5); WBC 4.42 X 10*3/uL (4.50-10.00)
[2020-07-12 09:38] LABS: African American GFR (CKD) 13.5 (60.0-200.0); Albumin 3.9 g/dL (3.80-4.90); Albumin/Globulin Ratio 1.7 (1.60-3.17); Anion Gap 10.9 mmol/L (4.00-12.00); BUN/Creat Ratio 7.8 Ratio (12.00-20.00); Calcium 8.9 mg/dL (8.7-10.3); Carbon Dioxide 27.1 mmol/L (21.6-31.8); Globulin 2.3 g/dL (1.6-3.3); Non-African American GFR(CKD) 11.7 (60.0-200.0); Potassium 4.6 mmol/L (3.5-5.5); Total Bilirubin 0.4 mg/dL (0.2-1.2); Total Protein 6.2 g/dL (6.2-8.2)
[2020-07-12 11:50] LABS: Glucose,Whole Blood 95 mg/dL (75-99)
--- NOTE | 2020-07-12 12:39 | P.PN ---
Subjective Patient is seen in follow-up for end-stage renal disease. She is making on hemodialysis on Thursday schedule. Still quite edematous. Tolerated 3 L ultrafiltration yesterday. Oral intake fair. No vomiting or diarrhea. Vital signs are stable. General: The patient appeared well nourished and normally developed. HEENT: Head exam is unremarkable. Neck is without jugular venous distension. LUNGS: Breath sounds decreased. HEART: Rate and Rhythm are regular. ABDOMEN: Soft, nontender. Distention noted. EXTREMITITES: 2+ edema. Objective - Vital Signs Vital signs: Vital Signs Temp 98.1 F 07/12/20 07:00 Pulse 85 07/12/20 07:00 Resp 18 07/12/20 07:00 BP 184/89 07/12/20 07:00 Pulse Ox 100 07/12/20 07:00 Intake & Output 07/11/20 07/12/20 07/12/20 18:59 06:59 18:59 Intake Total 230 Output Total 3000 Balance -2770 Weight 77.3 kg Intake: Oral 230 Output: Hemodialysis 3000 Other: Voiding Method CAPD # Voids 0 1 - Labs CBC & Chem 7: 07/12/20 05:58 07/12/20 05:58 Labs: Abnormal Lab Results - Last 24 Hours (Table) 07/11/20 07/11/20 07/12/20 Range/Units 16:34 19:48 05:58 WBC 4.42 L (4.50-10.00) X 10*3/uL RBC 2.55 L (4.10-5.20) X 10*6/uL Hgb 7.8 L (12.0-15.0) g/dL Hct 25.6 L (37.2-46.3) % MCV 100.4 H (80.0-97.0) fL MCHC 30.5 L (32.0-37.0) g/dL RDW 18.2 H (11.5-14.5) % Absolute Nucleated RBC 0.02 H (0.00-0.00) X 10*3/uL Immature Gran # 0.12 H (0.00-0.04) X 10*3/uL Lymphocytes # 0.29 L (0.90-5.00) X 10*3/uL NRBC/100 WBC Diff 0.5 H (0.0-0.0) /100 WBCS Sodium (135-145) mmol/L BUN (9.0-27.0) mg/dL Creatinine (0.6-1.5) mg/dL Est GFR (CKD-EPI)AfAm (60.0-200.0) Est GFR (CKD-EPI)NonAf (60.0-200.0) BUN/Creatinine Ratio (12.00-20.00) Ratio POC Glucose (mg/dL) 121 H 198 H (75-99) mg/dL 07/12/20 Range/Units 05:58 WBC (4.50-10.00) X 10*3/uL RBC (4.10-5.20) X 10*6/uL Hgb (12.0-15.0) g/dL Hct (37.2-46.3) % MCV (80.0-97.0) fL MCHC (32.0-37.0) g/dL RDW (11.5-14.5) % Absolute Nucleated RBC (0.00-0.00) X 10*3/uL Immature Gran # (0.00-0.04) X 10*3/uL Lymphocytes # (0.90-5.00) X 10*3/uL NRBC/100 WBC Diff (0.0-0.0) /100 WBCS Sodium 134 L (135-145) mmol/L BUN 32.0 H (9.0-27.0) mg/dL Creatinine 4.1 H (0.6-1.5) mg/dL Est GFR (CKD-EPI)AfAm 13.5 L (60.0-200.0) Est GFR (CKD-EPI)NonAf 11.7 L (60.0-200.0) BUN/Creatinine Ratio 7.80 L (12.00-20.00) Ratio POC Glucose (mg/dL) (75-99) mg/dL Microbiology - Last 24 Hours (Table) 07/09/20 14:25 Blood Culture - Preliminary Blood No Growth after 48 hours 07/09/20 14:00 Blood Culture - Preliminary Blood No Growth after 48 hours Assessment and Plan Plan: Assessment: 1. End-stage renal disease maintained on hemodialysis on Thursday schedule. 2. Volume overload. Gradually improving with daily ultrafiltration. 3. MRSA bacteremia due to permacath infection which was changed in June 2020. Also has history of endocarditis and underwent valve repairment in March 2020 at [facility]. 4. Hypertension with chronic kidney disease. Blood pressure better. Partially volume sensitive. 5. Diabetes mellitus. 6. Chronic kidney disease mineral bone disease. Phosphorous 5.1. 7. Pulmonary hypertension. 9. Anemia of chronic kidney disease. Maintained on Aranesp. Plan: Hemodialysis today with goal 3-4 L ultrafiltration. Extra treatment tomorrow mostly for ultrafiltration. Antibiotics per infectious disease. Maintain current antihypertensives. Expect further improvement in blood pressure post ultrafiltration. Potential discharge tomorrow after dialysis.
--- NOTE | 2020-07-12 14:34 | PN ---
PROGRESS NOTE DATE OF SERVICE: 07/12/2020 REASON FOR FOLLOWUP: MRSA bacteremia secondary to Perm-A-Cath infection. INTERVAL HISTORY: The patient is currently afebrile. The patient is feeling better. Breathing comfortably. Denies having any chest pain, shortness of breath or cough. Abdominal distention no worsening and no diarrhea. PHYSICAL EXAMINATION: Blood pressure 184/89 with pulse of 85, temperature of 98.1. She is 100% on room air. General description is a middle-aged female up in the bed in no distress. RESPIRATORY SYSTEM: Unlabored breathing, is clear to auscultation anteriorly. HEART: S1, S2. Regular rate and rhythm. ABDOMEN: Soft, no tenderness. LABS: Hemoglobin 7.8, white count 4.42, creatinine 4.1. Blood culture has been negative. DIAGNOSTIC IMPRESSION AND PLAN: Patient with MRSA bacteremia. To continue with daptomycin, will be continued to finish a course of therapy and close outpatient followup. MMODL / IJN: [id number] /
[2020-07-12 17:24] LABS: Glucose,Whole Blood 104 mg/dL (75-99)
[2020-07-12] MEDS: SODIUM FERRIC GLUCONAT-SUCROSE 125 MG in SODIUM CHLORIDE 0.9% 100 ML IVPB SCH (18:34)
[2020-07-12] MEDS: POLYMYXIN B-TRIMETHOPRIM SULF (10,000-1) OPHTH DROPS 10 ML BTL BOTH EYES SCH (19:40)
[2020-07-12] MEDS: MONTELUKAST 10 MG TAB PO SCH (19:40)
[2020-07-12] MEDS: ATORVASTATIN 40 MG TAB PO SCH (19:40)
[2020-07-12 20:11] LABS: Glucose,Whole Blood 108 mg/dL (75-99)
[2020-07-12] MEDS: INSULIN DETEMIR (LEVEMIR) 100 UNIT/ML SYR SQ SCH (20:11)
[2020-07-12] MEDS: CYCLOBENZAPRINE 5 MG TAB PO SCH (20:58)
[2020-07-12] MEDS: diazePAM 5 MG TAB PO PRN (22:10)
[2020-07-13] MEDS: ONDANSETRON 4 MG/2 ML VIAL IVP PRN (00:43)
[2020-07-13] MEDS: HYDROmorphone 0.5 MG/0.5 ML SYRINGE IVP PRN ×3 (00:43→12:22)
[2020-07-13] MEDS: HYDROcodone/APAP 7.5-325MG 1 EACH TAB PO SCH ×2 (02:15→11:18)
[2020-07-13] MEDS: ASCORBIC ACID 500 MG TAB PO SCH (04:35)
[2020-07-13] MEDS: cloNIDine HCL 0.1 MG TAB PO SCH ×2 (04:35→13:46)
[2020-07-13] MEDS: SILDENAFIL 20 MG TAB PO SCH ×2 (04:35→14:03)
[2020-07-13] MEDS: rifAMPin 300 MG CAP PO SCH ×2 (04:35→14:03)
[2020-07-13] MEDS: BENZONATATE 100 MG CAP PO SCH ×2 (04:35→13:45)
[2020-07-13] MEDS: FUROSEMIDE 80 MG TAB PO SCH ×2 (04:35→13:45)
[2020-07-13] MEDS: traMADol 50 MG TAB PO SCH (04:53)
[2020-07-13 07:08] LABS: Glucose,Whole Blood 183 mg/dL (75-99)
[2020-07-13] MEDS: INSULIN ASPART (NovoLOG) 100 UNIT/ML VIAL SQ SCH ×4 (08:36→13:45)
[2020-07-13] MEDS: METOPROLOL TARTRATE 50 MG TAB PO SCH (08:37)
[2020-07-13] MEDS: POLYMYXIN B-TRIMETHOPRIM SULF (10,000-1) OPHTH DROPS 10 ML BTL BOTH EYES SCH (08:37)
[2020-07-13] MEDS: hydrALAZINE HCL 50 MG TAB PO SCH ×2 (08:37→13:45)
[2020-07-13 11:11] LABS: Glucose,Whole Blood 137 mg/dL (75-99)
[2020-07-13] MEDS: diazePAM 5 MG TAB PO PRN (11:19)
--- NOTE | 2020-07-13 11:38 | P.PN ---
Subjective Patient is seen in follow-up for end-stage renal disease. She is making on hemodialysis on Thursday schedule. Edema improving with daily ultrafiltration. Oral intake fair. No vomiting or diarrhea. Blood pressure controlled this morning. Vital signs are stable. General: The patient appeared well nourished and normally developed. HEENT: Head exam is unremarkable. Neck is without jugular venous distension. LUNGS: Breath sounds decreased. HEART: Rate and Rhythm are regular. ABDOMEN: Soft, nontender. Distention noted. EXTREMITITES: 2+ edema. Objective - Vital Signs Vital signs: Vital Signs Temp 98.2 F 07/13/20 07:00 Pulse 84 07/13/20 07:00 Resp 16 07/13/20 07:00 BP 115/70 07/13/20 07:00 Pulse Ox 100 07/13/20 07:00 Intake & Output 07/12/20 07/13/20 07/13/20 18:59 06:59 18:59 Intake Total 300 100 Output Total 3006 Balance -2706 100 Weight 77.3 kg Intake: Intake, IV Titration 100 Amount DAPTOmycin 500 mg In 100 Sodium Chloride 0.9% 50 ml @ 100 mls/hr IVPB Q48H [facility] Rx#:[id number] Hemodialysis 300 Output: Hemodialysis 3006 Other: Voiding Method CAPD # Voids 5 0 - Labs CBC & Chem 7: 07/12/20 05:58 07/12/20 05:58 Labs: Abnormal Lab Results - Last 24 Hours (Table) 07/12/20 07/12/20 07/13/20 Range/Units 17:23 20:09 07:07 POC Glucose (mg/dL) 104 H 108 H 183 H (75-99) mg/dL 07/13/20 Range/Units 11:09 POC Glucose (mg/dL) 137 H (75-99) mg/dL Microbiology - Last 24 Hours (Table) 07/09/20 14:25 Blood Culture - Preliminary Blood No Growth after 72 hours 07/09/20 14:00 Blood Culture - Preliminary Blood No Growth after 72 hours Assessment and Plan Plan: Assessment: 1. End-stage renal disease maintained on hemodialysis on Thursday schedule. 2. Volume overload. Gradually improving with daily ultrafiltration. 3. MRSA bacteremia due to permacath infection which was changed in June 2020. Also has history of endocarditis and underwent valve repairment in March 2020 at [facility]. 4. Hypertension with chronic kidney disease. Blood pressure better. Partially volume sensitive. 5. Diabetes mellitus. 6. Chronic kidney disease mineral bone disease. Phosphorous 5.1. 7. Pulmonary hypertension. 9. Anemia of chronic kidney disease. Maintained on Aranesp. Plan: Short hemodialysis treatment today mostly for ultrafiltration. And another treatment tomorrow per her outpatient schedule. Antibiotics per infectious disease. Potential discharge after dialysis today.
--- NOTE | 2020-07-13 14:11 | CDI ---
Documentation Clarification Form Date: 07/13/2020 01:19:00 PM From: Halina Porter RN, CCDS Admit Date: 07/12/2020 10:08:00 PM Patient Name: Sara Desouza Visit Number: [id number] Discharge Date: ATTENTION: The Clinical Documentation Specialists (CDI) and [facility] Coding Staff appreciate your assistance in clarifying documentation. Please respond to the clarification below the line at the bottom and electronically sign. The CDI & [facility] Coding staff will review the response and follow-up if needed. Please note: Queries are made part of the Legal Health Record. If you have any questions, please contact the author of this message via ITS. Dr. David Bragg CHF is documented in the past medical history. She presents with feet swelling, 2+ edema bilaterally. Chest x-ray shows mild pulmonary edema per ED assessment. Please clarify history of CHF and if any relationship to pulmonary edema. History/Risk Factors: Heart Failure, Diabetes Mellitus, End stage renal disease on HD, History of MRSA infection. Clinical Indicators: 55-year-old female present to ED with complaints of retaining water. The clinical impression in ED has pulmonary edema, volume overload. 07/09 CXR: Mild pulmonary edema 07/09 VS/Pulse OX: 213/99 90 18 98.3 98 % RA 05/14/20 Echocardiogram Results: Overall left ventricular systolic function is low-normal with, an EF between 50-55 %. Cannot rule out vegetation. There is severe pulmonary hypertension 07/09 Chest X Ray: Correlate for volume overload. Treatment: Lasix 80 mg PO BID Lopressor 50 PO TID Hemodialysis per Nephrology In your professional opinion, can you please clarify the acuity and type of CHF if known? Systolic Heart Failure: Acute Chronic Acute on Chronic Diastolic Heart Failure: Acute Chronic Acute on Chronic Systolic & Diastolic Heart Failure: Acute Chronic Acute on Chronic Heart Failure Unable to Determine Other, please specify (Last Revision: August 2017) JUDD
--- NOTE | 2020-07-13 14:57 | PN ---
PROGRESS NOTE DATE OF SERVICE: 07/13/2020 REASON FOR FOLLOWUP: MRSA bacteremia. INTERVAL HISTORY: The patient is currently afebrile. Patient is breathing comfortably. The patient denies having any chest pain or shortness of breath or cough. No abdominal pain, no diarrhea. Leg swelling has slightly decreased. PHYSICAL EXAMINATION: Blood pressure 115/70 with a pulse of 84, temperature 98.2. She is 100% on room air. General description is a middle-aged female up in the bed in no distress. RESPIRATORY SYSTEM: Unlabored breathing, clear to auscultation anteriorly. HEART: S1, S2. Regular rate and rhythm. ABDOMEN: Soft, less distended. EXTREMITIES: With 2+ edema feet. LABS: Blood culture has been negative. DIAGNOSTIC IMPRESSION AND PLAN: Patient with methicillin-resistant Staphylococcus aureus bacteremia secondary to Perm-A- Catheter which has been discontinued. The patient is currently on his daptomycin. She will continue to finish a course of therapy as per recommendation [facility] ID physician and to follow up with them outpatient. IV daptomycin arranged for the patient as per discussion with the case liner. MMODL / IJN: [id number] /
[2020-07-13 14:59] VITALS: BP 164/75; PULSE 86; RESP 18; TEMP 98.2
--- NOTE | 2020-07-14 12:09 | DS ---
DISCHARGE SUMMARY ADDENDUM: Acute on chronic diastolic heart failure. MMODL / IJN: [id number] /
== END 2020-07-13 16:00 | disposition home or self-care (01) | DRG 291 ==
LOC: EC 13:17 → 6NMEDSUR 16:40 → OBSVTOIN 07-12 22:08
PROVIDERS: ADMIT Family Medicine; ATTEND Family Medicine
PROC: 5A1D70Z Performance of Urinary Filtration, Intermittent, Less than 6 Hours Per Day (ICD-10-PCS; principal; 2020-07-12)
DX: I13.2 Hypertensive heart and chronic kidney disease with heart failure and with stage 5 chronic kidney disease, or end stage renal disease (principal); I33.0 Acute and subacute infective endocarditis; N18.6 End stage renal disease; I50.33 Acute on chronic diastolic (congestive) heart failure; T80.211A Bloodstream infection due to central venous catheter, initial encounter; R78.81 Bacteremia; Z16.21 Resistance to vancomycin; D63.1 Anemia in chronic kidney disease; E11.22 Type 2 diabetes mellitus with diabetic chronic kidney disease; E78.5 Hyperlipidemia, unspecified; I27.20 Pulmonary hypertension, unspecified; B95.62 Methicillin resistant Staphylococcus aureus infection as the cause of diseases classified elsewhere; Y84.8 Other medical procedures as the cause of abnormal reaction of the patient, or of later complication, without mention of misadventure at the time of the procedure; Z99.2 Dependence on renal dialysis; Z79.2 Long term (current) use of antibiotics; Z79.4 Long term (current) use of insulin; Z79.899 Other long term (current) drug therapy; Z88.4 Allergy status to anesthetic agent; Z88.1 Allergy status to other antibiotic agents; Z91.041 Radiographic dye allergy status; Z95.2 Presence of prosthetic heart valve; Z20.822 Contact with and (suspected) exposure to COVID-19
CPT/HCPCS: 36415; 71046; 80053; 83735; 84100; 85025; 85610; 85730; 87040; 87635; 90935; 93005; 94640; 96365; 99285

== ENCOUNTER 2020-08-02 07:34 | Inpatient (IN) | payer OTHER ==
[2020-08-02] MEDS ORDERED: HYDROmorphone 1 MG/ML 1 ML SYRINGE IVP STA (07:51)
--- NOTE | 2020-08-02 08:03 | ED ---
SOB HPI - General Chief Complaint: Shortness of Breath Stated Complaint: MARILIN Time Seen by Provider: 08/02/20 07:40 Source: patient, EMS Mode of arrival: EMS Limitations: no limitations - History of Present Illness Initial Comments: 55-year-old female past medical history of diabetes mellitus, end-stage renal disease on hemodialysis Thursday, and Thursday, endocarditis who presents emergency Department with respiratory insufficiency and weight gain. Patient reports that over the past several days she has had increased swelling in her lower extremities and her abdomen. Patient reports applying larger shoes due to the swelling. She denies missing any sessions of her dialysis. Patient presented to dialysis today and was found to be extremely hypertensive and complaining of shortness of breath. Because of this they did transfer her to the emergency department. Normally follows with Dr. Jones. Denies any fevers or chills. Patient on chronic antibiotics. Reports during her last hospitalization she was transferred [facility]. States that they ruled out endocarditis at her last visit however she will be on antibiotics until August. No other alleviating, precipitating or modifying factors - Related Data Home Medications Medication Instructions Recorded Confirmed cloNIDine HCL 0.3 mg PO TID@0530,1300,1900 12/16/16 08/02/20 Prochlorperazine [Compazine] 5 mg PO BID PRN 10/26/17 08/02/20 INSULIN LISPRO (humaLOG) [humaLOG] 10 unit SQ AC-TID 07/12/18 08/02/20 hydrALAZINE HCL [Apresoline] 100 mg PO QID 12/14/18 08/02/20 HYDROcodone/APAP 7.5-325MG [[place] 1 tab PO Q8H 11/08/19 08/02/20 7.5-325] Montelukast [Singulair] 10 mg PO HS@1900 11/08/19 08/02/20 Insulin Glargine,Hum.rec.anlog See Protocol SQ HS 12/02/19 08/02/20 [Basaglar Kwikpen U-100] Albuterol Sulfate [Proair Hfa] 2 puff INHALATION RT-Q6H PRN 01/28/20 08/02/20 INSULIN LISPRO (HumaLOG) [humaLOG] See Protocol SQ ACHS 03/17/20 08/02/20 Sildenafil [Revatio] 20 mg PO TID@0530,1300,1900 04/20/20 08/02/20 traMADol HCL [Ultram] 50 mg PO Q12H 05/13/20 08/02/20 Ascorbic Acid [Vitamin C] 500 mg PO DAILY@0530 07/09/20 08/02/20 Atorvastatin [Lipitor] 40 mg PO HS@1900 07/09/20 08/02/20 Metoprolol Tartrate [Lopressor] 50 mg PO TID 07/09/20 08/02/20 rifAMPin [Rifampin] 300 mg PO TID@0530,1300,1900 07/09/20 08/02/20 Gabapentin [Neurontin] 100 mg PO TID 08/02/20 08/02/20 Omeprazole 20 mg PO BID 08/02/20 08/02/20 Previous Rx's Medication Instructions Recorded DAPTOmycin [Cubicin] 500 mg IVPB Q48H vial 07/13/20 Polymyxin B-Trimeth Sulf Ophth 2 drops BOTH EYES Q6HR ml 08/05/20 [Polytrim Opthalmic] diphenhydrAMINE [Benadryl] 25 mg PO Q8H PRN cap 08/05/20 Allergies Allergy/AdvReac Type Severity Reaction Status Date / Time Anesthetics - Amide Type - Allergy Unknown Verified 08/02/20 08:55 Select A Anesthetics - Andree Type- Allergy Unknown Verified 08/02/20 08:55 Parabens ciprofloxacin [From Cipro] AdvReac AFFECTED Verified 08/02/20 08:55 EYESIGHT ciprofloxacin HCl AdvReac AFFECTED Verified 08/02/20 08:55 [From Cipro] EYESIGHT Iodinated Contrast Media AdvReac RENAL Verified 08/02/20 08:55 FAILURE Review of Systems ROS Statement: Those systems with pertinent positive or pertinent negative responses have been documented in the HPI. ROS Other: All systems not noted in ROS Statement are negative. 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 hemodialysis for acute kidney injury 2 months in 2009 after pancreatic OR, 11/2015 diagnosed w/ chronic kidney disease-hemodialysis /-last hemodialysis 06/02/19, IDDM type II, past DKA, UTI, chronic anemia, frequent body cramping, occasional low back pain, carter's palsy x2, past L leg fx, possible liver disease-recent liver bx-results unknown per pt. History of Any Multi-Drug Resistant Organisms: MRSA Date of last positivie culture/infection: 06/10/20 MDRO Source:: Blood Past Surgical History: Cardiac Valve Replacement, Orthopedic Surgery, Uterine Ablation Additional Past Surgical History / Comment(s): Recent liver biopsy done at [facility] but pt states they have never contacted her with the results, 08/26/17 colonoscopy with polypectomy/bx, pancreatic resection at [facility] 2009, bone marrow biopsies X2-last one 05/19/16,. dialysis chest port x 2 with removals, Left arm shunt placement for dialysis - December 2015 and a revision done with shunt. Left forearm Vein Revision - October 2019 Past Anesthesia/Blood Transfusion Reactions: No Reported Reaction Additional Past Anesthesia/Blood Transfusion Reaction / Comment(s): Pt has received blood transfusions without reaction. Past Psychological History: No Psychological Hx Reported Smoking Status: Never smoker Past Alcohol Use History: None Reported Past Drug Use History: None Reported - Past Family History Brother(s) Family Medical History: No Reported History Mother Family Medical History: Cancer Additional Family Medical History / Comment(s): . Father Family Medical History: Hypertension Additional Family Medical History / Comment(s): alcoholism General Exam Limitations: no limitations General appearance: alert, in no apparent distress Head exam: Present: atraumatic, normocephalic, normal inspection Eye exam: Present: normal appearance, PERRL, EOMI. Absent: scleral icterus, conjunctival injection, periorbital swelling ENT exam: Present: normal exam, mucous membranes moist Neck exam: Present: normal inspection. Absent: tenderness, meningismus, lympha denopathy Respiratory exam: Present: normal lung sounds bilaterally. Absent: respiratory distress, wheezes, rales, rhonchi, stridor Cardiovascular Exam: Present: regular rate, normal rhythm, normal heart sounds. Absent: systolic murmur, diastolic murmur, rubs, gallop, clicks GI/Abdominal exam: Present: soft, normal bowel sounds. Absent: distended, tenderness, guarding, rebound, rigid Extremities exam: Present: normal inspection, full ROM, normal capillary refill, pedal edema. Absent: tenderness, joint swelling, calf tenderness Back exam: Present: normal inspection Neurological exam: Present: alert, oriented X3, CN II-XII intact Psychiatric exam: Present: normal affect, normal mood Skin exam: Present: warm, dry, intact, normal color. Absent: rash Course Vital Signs 08/02/20 08/02/20 08/02/20 07:36 09:00 10:06 Temperature 98.3 F Pulse Rate 97 102 H 105 H Pulse Rate [ R D Engineer ] Respiratory 18 18 18 Rate Blood Pressure 203/105 192/118 183/99 Blood Pressure [Right Arm] O2 Sat by Pulse 100 98 97 Oximetry 08/02/20 08/02/20 08/02/20 11:54 12:31 13:30 Temperature 98.7 F Pulse Rate 100 104 H 87 Pulse Rate [ R D Engineer ] Respiratory 18 18 17 Rate Blood Pressure 186/101 199/115 134/79 Blood Pressure [Right Arm] O2 Sat by Pulse 100 98 98 Oximetry 08/02/20 08/02/20 08/02/20 14:51 16:50 17:46 Temperature 98.8 F 97.4 F L Pulse Rate 88 94 Pulse Rate [ 85 R D Engineer ] Respiratory 19 18 21 Rate Blood Pressure 159/84 172/85 Blood Pressure 168/62 [Right Arm] O2 Sat by Pulse 99 95 Oximetry 08/02/20 08/02/20 18:00 20:00 Temperature 97.8 F Pulse Rate 101 H Pulse Rate [ 98 R D Engineer ] Respiratory 20 20 Rate Blood Pressure 153/70 Blood Pressure 177/85 [Right Arm] O2 Sat by Pulse 99 98 Oximetry Medical Decision Making - Medical Decision Making Upon arrival patient was placed into room 3. A thorough history and physical exam is performed. IV is established. Laboratories is or conducted. Chest x- rays performed. Laboratory study demonstrates a stable hemoglobin of 7.8. Potassium of 5.6. Glucose 73. BNP 34,300. Troponin 0.055. Chest x-ray does demonstrate volume overload. Patient was given 10 units of insulin, 1 amp of dextrose and 60 mg of Lasix. I spoke with Dr. Chaudhary who agreed to admit the patient. Also spoke with Dr. Orozco because the patient's dialysis needs. Patient is currently awaiting a bed on the floor. - Lab Data Result diagrams: 08/04/20 08:07 08/04/20 08:07 Lab Results 08/02/20 08/02/20 08/02/20 Range/Units 07:55 07:55 07:55 WBC 4.1 (3.8-10.6) k/uL RBC 2.60 L (3.80-5.40) m/uL Hgb 7.8 L (11.4-16.0) gm/dL Hct 23.9 L (34.0-46.0) % MCV 91.9 (80.0-100.0) fL MCH 29.8 (25.0-35.0) pg MCHC 32.4 (31.0-37.0) g/dL RDW 16.6 H (11.5-15.5) % Plt Count 188 (150-450) k/uL MPV 7.3 Neutrophils % 84 % Lymphocytes % 7 % Monocytes % 6 % Eosinophils % 1 % Basophils % 0 % Neutrophils # 3.5 (1.3-7.7) k/uL Lymphocytes # 0.3 L (1.0-4.8) k/uL Monocytes # 0.3 (0-1.0) k/uL Eosinophils # 0.1 (0-0.7) k/uL Basophils # 0.0 (0-0.2) k/uL Hypochromasia Slight Anisocytosis Slight PT 11.1 (9.0-12.0) sec INR 1.1 (<1.2) APTT 25.0 (22.0-30.0) sec Sodium 136 L (137-145) mmol/L Potassium 5.6 H (3.5-5.1) mmol/L Chloride 91 L (98-107) mmol/L Carbon Dioxide 31 H (22-30) mmol/L Anion Gap 14 mmol/L BUN 67 H (7-17) mg/dL Creatinine 5.93 H (0.52-1.04) mg/dL Est GFR (CKD-EPI)AfAm 9 (>60 ml/min/1.73 sqM) Est GFR (CKD-EPI)NonAf 7 (>60 ml/min/1.73 sqM) Glucose 73 L (74-99) mg/dL Plasma Lactic Acid Micha (0.7-2.0) mmol/L Calcium 8.6 (8.4-10.2) mg/dL Magnesium 1.5 L (1.6-2.3) mg/dL Total Bilirubin 0.6 (0.2-1.3) mg/dL AST 20 (14-36) U/L ALT 8 (4-34) U/L Alkaline Phosphatase 122 (38-126) U/L Troponin I (0.000-0.034) ng/mL NT-Pro-B Natriuret Pep pg/mL Total Protein 6.2 L (6.3-8.2) g/dL Albumin 3.5 (3.5-5.0) g/dL Coronavirus (PCR) (Not Detectd) 08/02/20 08/02/20 08/02/20 Range/Units 07:55 07:55 07:55 WBC (3.8-10.6) k/uL RBC (3.80-5.40) m/uL Hgb (11.4-16.0) gm/dL Hct (34.0-46.0) % MCV (80.0-100.0) fL MCH (25.0-35.0) pg MCHC (31.0-37.0) g/dL RDW (11.5-15.5) % Plt Count (150-450) k/uL MPV Neutrophils % % Lymphocytes % % Monocytes % % Eosinophils % % Basophils % % Neutrophils # (1.3-7.7) k/uL Lymphocytes # (1.0-4.8) k/uL Monocytes # (0-1.0) k/uL Eosinophils # (0-0.7) k/uL Basophils # (0-0.2) k/uL Hypochromasia Anisocytosis PT (9.0-12.0) sec INR (<1.2) APTT (22.0-30.0) sec Sodium (137-145) mmol/L Potassium (3.5-5.1) mmol/L Chloride (98-107) mmol/L Carbon Dioxide (22-30) mmol/L Anion Gap mmol/L BUN (7-17) mg/dL Creatinine (0.52-1.04) mg/dL Est GFR (CKD-EPI)AfAm (>60 ml/min/1.73 sqM) Est GFR (CKD-EPI)NonAf (>60 ml/min/1.73 sqM) Glucose (74-99) mg/dL Plasma Lactic Acid Micha 1.0 (0.7-2.0) mmol/L Calcium (8.4-10.2) mg/dL Magnesium (1.6-2.3) mg/dL Total Bilirubin (0.2-1.3) mg/dL AST (14-36) U/L ALT (4-34) U/L Alkaline Phosphatase (38-126) U/L Troponin I 0.055 H* (0.000-0.034) ng/mL NT-Pro-B Natriuret Pep 29695 pg/mL Total Protein (6.3-8.2) g/dL Albumin (3.5-5.0) g/dL Coronavirus (PCR) (Not Detectd) 08/02/20 Range/Units 08:20 WBC (3.8-10.6) k/uL RBC (3.80-5.40) m/uL Hgb (11.4-16.0) gm/dL Hct (34.0-46.0) % MCV (80.0-100.0) fL MCH (25.0-35.0) pg MCHC (31.0-37.0) g/dL RDW (11.5-15.5) % Plt Count (150-450) k/uL MPV Neutrophils % % Lymphocytes % % Monocytes % % Eosinophils % % Basophils % % Neutrophils # (1.3-7.7) k/uL Lymphocytes # (1.0-4.8) k/uL Monocytes # (0-1.0) k/uL Eosinophils # (0-0.7) k/uL Basophils # (0-0.2) k/uL Hypochromasia Anisocytosis PT (9.0-12.0) sec INR (<1.2) APTT (22.0-30.0) sec Sodium (137-145) mmol/L Potassium (3.5-5.1) mmol/L Chloride (98-107) mmol/L Carbon Dioxide (22-30) mmol/L Anion Gap mmol/L BUN (7-17) mg/dL Creatinine (0.52-1.04) mg/dL Est GFR (CKD-EPI)AfAm (>60 ml/min/1.73 sqM) Est GFR (CKD-EPI)NonAf (>60 ml/min/1.73 sqM) Glucose (74-99) mg/dL Plasma Lactic Acid Micha (0.7-2.0) mmol/L Calcium (8.4-10.2) mg/dL Magnesium (1.6-2.3) mg/dL Total Bilirubin (0.2-1.3) mg/dL AST (14-36) U/L ALT (4-34) U/L Alkaline Phosphatase (38-126) U/L Troponin I (0.000-0.034) ng/mL NT-Pro-B Natriuret Pep pg/mL Total Protein (6.3-8.2) g/dL Albumin (3.5-5.0) g/dL Coronavirus (PCR) Not Detected (Not Detectd) - EKG Data EKG Comments: EKG demonstrates normal sinus rhythm with a ventricular rate of 100. NV interva l 180. QRS 88. QTC 456. No acute ST segment elevations or depressions. Disposition Clinical Impression: ESRD (end stage renal disease) on dialysis, HTN (hypertension), Admission for dialysis Disposition: ADMITTED IP TO THIS HOSP Condition: Stable Is patient prescribed a controlled substance at d/c from ED?: No Decision to Admit Reason: Admit from EC Decision Date: 08/02/20 Decision Time: 09:50
[2020-08-02 08:08] LABS: Anisocytosis Slight; Basophils % (A) 0 %; Eosinophils # (A) 0.1 k/uL (0-0.7); Eosinophils % (A) 1 %; HCT 23.9 % (34.0-46.0); HGB 7.8 gm/dL (11.4-16.0); Hypochromasia Slight; Lymphocytes # (A) 0.3 k/uL (1.0-4.8); Lymphocytes % (A) 7 %; MCH 29.8 pg (25.0-35.0); MCHC 32.4 g/dL (31.0-37.0); MCV 91.9 fL (80.0-100.0); Mean Platelet Volume 7.3; Monocytes # (A) 0.3 k/uL (0-1.0); Monocytes % (A) 6 %; Neutrophils # (A) 3.5 k/uL (1.3-7.7); Neutrophils % (A) 84 %; Platelet Count 188 k/uL (150-450); RDW 16.6 % (11.5-15.5); WBC 4.1 k/uL (3.8-10.6)
[2020-08-02 08:16] LABS: Albumin 3.5 g/dL (3.5-5.0); Calcium 8.6 mg/dL (8.4-10.2); INR 1.1 (<1.2); Magnesium 1.5 mg/dL (1.6-2.3); Potassium 5.6 mmol/L (3.5-5.1); Prothrombin Time 11.1 sec (9.0-12.0); Total Bilirubin 0.6 mg/dL (0.2-1.3); Total Protein 6.2 g/dL (6.3-8.2)
--- NOTE | 2020-08-02 08:48 | XR ---
EXAMINATION TYPE: XR chest 2V DATE OF EXAM: 08/02/2020 HISTORY: Shortness of breath. COMPARISON: 07/09/2020 TECHNIQUE: Single view of the chest is submitted. FINDINGS: Demonstrated are scattered senescent parenchymal change. There is persistent cardiomegaly with pulmonary venous congestion. Central venous line unchanged. Miguel rnotomy wires are in place as well as valvular prosthesis. Hilar and mediastinal structures are withi n normal limits. Degenerative changes are seen of the dorsal spine. IMPRESSION: 1. Correlate for volume overload versus mild early congestive failure.
[2020-08-02] MEDS ORDERED: DEXTROSE 50% SYRINGE 50 ML IVP STA (09:03)
[2020-08-02] MEDS ORDERED: NALOXONE 0.4 MG/ML 1 ML VIAL IV PRN (09:50)
[2020-08-02] MEDS ORDERED: FUROSEMIDE 10 MG/ML 10 ML VIAL IV STA (09:52)
[2020-08-02] MEDS ORDERED: INSULIN REGULAR 100 UNIT/ML VIAL IV ONE (09:53)
[2020-08-02] MEDS ORDERED: PROCHLORPERAZINE 5 MG TAB PO PRN (09:58)
[2020-08-02 10:11] LABS: Glucose,Whole Blood 86 mg/dL (75-99)
[2020-08-02] MEDS: hydrALAZINE HCL 50 MG TAB PO SCH ×4 (10:29→20:56)
[2020-08-02] MEDS: METOPROLOL TARTRATE 50 MG TAB PO SCH ×3 (10:29→20:56)
[2020-08-02] MEDS: SILDENAFIL 20 MG TAB PO SCH ×2 (12:25→18:35)
[2020-08-02] MEDS: rifAMPin 300 MG CAP PO SCH ×2 (12:25→18:35)
[2020-08-02] MEDS: cloNIDine HCL 0.1 MG TAB PO SCH ×2 (12:25→18:35)
[2020-08-02] MEDS: INSULIN ASPART (NovoLOG) 100 UNIT/ML VIAL SQ SCH ×2 (12:28→18:39)
[2020-08-02 12:39] LABS: Glucose,Whole Blood 75 mg/dL (75-99)
[2020-08-02] MEDS ORDERED: HYDROmorphone 0.5 MG/0.5 ML SYRINGE IVP PRN (14:19)
[2020-08-02 16:50] LABS: Glucose,Whole Blood 131 mg/dL (75-99)
[2020-08-02] MEDS: HYDROmorphone 1 MG/ML 1 ML SYRINGE IVP PRN ×2 (18:31→22:07)
[2020-08-02] MEDS: MONTELUKAST 10 MG TAB PO SCH (18:36)
[2020-08-02] MEDS: ATORVASTATIN 40 MG TAB PO SCH (18:39)
--- NOTE | 2020-08-02 19:35 | CONS ---
CONSULTATION REASON FOR CONSULT: End-stage renal disease. HISTORY OF PRESENT ILLNESS: The patient is a 55-year-old female with end-stage renal disease, on hemodialysis on a Thursday, , Thursday schedule. Patient was admitted to the hospital with complaints of increased shortness of breath as well as increased lower extremity edema. She has a previous history of endocarditis, status post treatment with antibiotics. Patient states that she has had increase in weight gain and fluid overload, getting worse over the last 2 weeks. She states she is compliant with fluid restriction. PAST MEDICAL HISTORY: Cataract, pancreatitis, history of retinal hemorrhages, CKD mineral bone disorder, anemia of chronic disease, history of endocarditis, possible chronic liver disease. PAST SURGICAL HISTORY: Colonoscopy, polypectomy, liver biopsy, left arm AV fistula. SOCIAL HISTORY: Negative for smoking, drug abuse or alcohol abuse. MEDICATIONS: Medications prior to admission included clonidine, Compazine, insulin, hydralazine, Revatio, Flexeril, Ultram, Requip, Lipitor, Lopressor, Neurontin, omeprazole. ALLERGIES: ALLERGIES include ANESTHETICS, GEOFFREY TYPE PARABENS, CIPRO, IV CONTRAST. REVIEW OF SYSTEMS: As per HPI. Other systems negative. PHYSICAL EXAMINATION: Patient is comfortable. She is mildly short of breath, not in acute distress. Blood pressure 183/99, heart rate 105 per minute. She is afebrile. Examination of lower extremities shows edema 3+ bilaterally. ABDOMEN: Soft, distended. Patient also has facial edema. ROUTE DELIVERY MANAGER exam grossly intact. LABS: Sodium 136, potassium 5. , chloride 91, BUN 67, creatinine 5.9, hemoglobin 7.8 g/dL. Troponin 0.083. ASSESSMENT: 1. End-stage renal disease, on hemodialysis on a Thursday, , Thursday schedule. 2. Fluid overload. 3. Hyperkalemia. Expect improvement with dialysis. 4. Anemia with no active bleeding noted. 5. Chronic liver disease. 6. History of endocarditis, status post antibiotics. Blood cultures grew MRSA in May of 2020. PLAN: We will plan for daily dialysis for the severe fluid overload. Continue current antihypertensive med regimen and hold antihypertensive treatment before dialysis. Thank you for this consultation. Will continue to follow the patient with you during her hospitalization. We will maintain her on her phosphate binders as well. MMODL / IJN: [id number] /
[2020-08-02] MEDS: PANTOPRAZOLE 40 MG TABLET PO SCH (20:56)
[2020-08-03 06:21] LABS: Glucose,Whole Blood 160 mg/dL (75-99)
[2020-08-03] MEDS: cloNIDine HCL 0.1 MG TAB PO SCH ×3 (08:17→17:10)
[2020-08-03] MEDS: METOPROLOL TARTRATE 50 MG TAB PO SCH ×3 (08:17→21:00)
[2020-08-03] MEDS: PANTOPRAZOLE 40 MG TABLET PO SCH ×2 (08:17→20:05)
[2020-08-03] MEDS: hydrALAZINE HCL 50 MG TAB PO SCH ×4 (08:17→21:00)
[2020-08-03] MEDS: INSULIN ASPART (NovoLOG) 100 UNIT/ML VIAL SQ SCH ×3 (08:37→17:11)
[2020-08-03 09:22] LABS: Anisocytosis Slight; Basophils % (A) 1 %; Eosinophils # (A) 0.1 k/uL (0-0.7); Eosinophils % (A) 2 %; HCT 26.2 % (34.0-46.0); HGB 8.4 gm/dL (11.4-16.0); Hypochromasia Moderate; Lymphocytes # (A) 0.3 k/uL (1.0-4.8); Lymphocytes % (A) 6 %; MCH 29.9 pg (25.0-35.0); MCV 93.5 fL (80.0-100.0); Monocytes # (A) 0.4 k/uL (0-1.0); Monocytes % (A) 9 %; Neutrophils # (A) 3.5 k/uL (1.3-7.7); Neutrophils % (A) 82 %; Platelet Count 198 k/uL (150-450); RDW 16.4 % (11.5-15.5); WBC 4.3 k/uL (3.8-10.6)
[2020-08-03 09:27] LABS: Albumin 3.7 g/dL (3.5-5.0); Calcium 9.3 mg/dL (8.4-10.2); Potassium 5.7 mmol/L (3.5-5.1); Total Bilirubin 0.8 mg/dL (0.2-1.3); Total Protein 6.6 g/dL (6.3-8.2)
[2020-08-03] MEDS: ONDANSETRON 4 MG/2 ML VIAL IVP PRN ×3 (10:32→22:43)
[2020-08-03] MEDS: HYDROmorphone 1 MG/ML 1 ML SYRINGE IVP PRN ×4 (10:35→22:42)
[2020-08-03 12:04] LABS: Glucose,Whole Blood 153 mg/dL (75-99)
[2020-08-03] MEDS: rifAMPin 300 MG CAP PO SCH ×3 (13:07→17:10)
[2020-08-03] MEDS: SILDENAFIL 20 MG TAB PO SCH ×3 (13:07→17:11)
--- NOTE | 2020-08-03 13:07 | P.CRDCN ---
History of Present Illness History of present illness: HISTORY OF PRESENTING ILLNESS This is a pleasant 54-year-old female past medical history significant for end-stage renal disease on hemodialysis, chronic pericardial effusion, hype rtension, dyslipidemia, diabetes mellitus, pulmonary hypertension and pancreatitis. She recently was diagnosed with infective endocarditis and was transferred [facility] where she underwent mitral valve replacement with a tissue valve March 2020. She follows in the office with Dr. Tesfaye. We have been asked to see in consultation for fluid overload. Presented to the hospital with symptoms of increased edema of her lower extremities and abdomen. She has been seen by nephrology and they recommend daily dialysis. She underwent hemodialysis yesterday and feels as though her swelling has gone down somewhat. She also feels some shortness of breath. She has no symptoms of chest pain, dizziness or palpitations. 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 At that time she had MRSA bacteremia from her perma cath and was transferred to [facility]. DIAGNOSTICS EKG reveals sinus mechanism with no acute ST or T wave abnormalities noted. Chest xray volume overload. Laboratory reviewed, WBC 4.3, hemoglobin 8.4, platelets 198, sodium 132, potassium 5.7, creatinine 5.05, magnesium 1.5, troponin 0.055, 0.083, 0.079 and proBNP 34,300. Current cardiac medications include atorvastatin 40 mg daily, Lasix 80 mg twice a day, Lopressor 50 mg 3 times a day, sildenafil 20 mg 3 times a day, clonidine 0.3 mg 3 times a day, hydralazine 100 mg 4 times a day and rifampin 300 mg 3 times a day. REVIEW OF SYSTEMS At the time of my exam: CONSTITUTIONAL: Denies fever or chills. CARDIOVASCULAR: Complains of shortness of breath and orthopnea. Denies chest pain, shortness of breath, PND or palpitations. RESPIRATORY: Denies cough. GASTROINTESTINAL: Denies abdominal pain, diarrhea, constipation, nausea or vomit ing. MUSCULOSKELETAL: Denies myalgias. NEUROLOGIC: Denies numbness, tingling, headacbe or weakness. ENDOCRINE: Denies fatigue, weight change, polydipsia or polyurina. GENITOURINARY: Denies burning, hematuria or urgency with micturation. HEMATOLOGIC: Denies history of anemia or bleeding. PHYSICAL EXAMINATION Blood pressure 168/84 heart rate 100 afebrile and maintaining oxygen saturation on room air. CONSTITUTIONAL: No apparent distress. Mild jaundice noted. HEENT: Head is normocephalic. Pupils are equal, round. Sclerae anicteric. Mucous membranes of the mouth are moist. No JVD. No carotid bruit. CHEST EXAMINATION: Lungs are clear to auscultation. No chest wall tenderness is noted on palpation or with deep breathing. HEART EXAMINATION: Regular rate and rhythm. S1, S2 heard. Systolic ejection murmur at the base, no gallops or rub. ABDOMEN: Soft, nontender, distended and protuberent. Positive bowel sounds. EXTREMITIES: 2+ peripheral pulses, no lower extremity edema and no calf tende rness. NEUROLOGIC EXAMINATION: Patient is awake, alert and oriented x3. ASSESSMENT Fluid overload secondary to chronic kidney disease Hypomagnesemia Troponin elevation secondary to chronic kidney disease Pulmonary hypertension Recent diagnosis of endocarditis status post mitral valve replacement Hypertension Dyslipidemia Diabetes mellitus End-stage renal disease on hemodialysis PLAN Continue dialysis per nephrology. Continue current medical regimen. No fever or leuckocytosis to suggest recurrent bacteremia. No further recommendations at this time. Follow up with Dr. Tesfaye upon discharge. Thank you kindly for this consultation. Nurse Practitioner note has been reviewed, I agree with a documented findings and plan of care. Patient was seen and examined. Past Medical History Past Medical History: Blood Disorder, Heart Failure, Diabetes Mellitus, Dialysis, Eye Disorder, Hyperlipidemia, Hypertension, Pneumonia, Renal Disease Additional Past Medical History / Comment(s): Pt recently admitted to [facility] with acute on chronic CHF. Other hx: Recent MRSA blood and is on antibiotics until sometime in August 2020, bilateral cataracts, recently diagnosed with L retinal hemorrhages, hypertriglyceridemia-induced acute pancreatitis, THEN necrotizing pancreatitis, hemodialysis for acute kidney injury 2 months in 2009 after pancreatic OR, 11/2015 diagnosed w/ chronic kidney disease-hemodialysis //, mineral bone disease, ascities, bilateral lower extremity edema, IDDM type II, past DKA, neuropathy bilateral hands/legs/feet, UTI, chronic anemia, frequent body cramping, occasional low back pain, carter's palsy x2, past L leg fx History of Any Multi-Drug Resistant Organisms: MRSA Date of last positivie culture/infection: 06/10/20 MDRO Source:: Blood Past Surgical History: Cardiac Valve Replacement, Orthopedic Surgery, Uterine Ablation Additional Past Surgical History / Comment(s): Recent benign liver biopsy done at [facility], 08/26/17 colonoscopy with polypectomy/bx, pancreatic resection at [facility] 2009, bone marrow biopsies X2-last one 05/19/16,. dialysis chest port x 2 with removals, Left arm shunt placement for dialysis - December 2015 and a revision done with shunt. Left forearm Vein Revision - October 2019, permacath changed 06/2020 Past Anesthesia/Blood Transfusion Reactions: No Reported Reaction Additional Past Anesthesia/Blood Transfusion Reaction / Comment(s): Pt has received blood transfusions without reaction. Smoking Status: Never smoker - Past Family History Brother(s) Family Medical History: No Reported History Mother Family Medical History: Cancer Additional Family Medical History / Comment(s): Throat cancer. Father Family Medical History: Coronary Artery Disease (CAD), Hypertension Additional Family Medical History / Comment(s): alcoholism Medications and Allergies Home Medications Medication Instructions Recorded Confirmed Type cloNIDine HCL 0.3 mg PO TID@0530,1300,1900 12/16/16 08/02/20 History Prochlorperazine [Compazine] 5 mg PO BID PRN 10/26/17 08/02/20 History INSULIN LISPRO (humaLOG) [humaLOG] 10 unit SQ AC-TID 07/12/18 08/02/20 History hydrALAZINE HCL [Apresoline] 100 mg PO QID 12/14/18 08/02/20 History HYDROcodone/APAP 7.5-325MG [[place] 1 tab PO Q8H 11/08/19 08/02/20 History 7.5-325] Montelukast [Singulair] 10 mg PO HS@1900 11/08/19 08/02/20 History Insulin Glargine,Hum.rec.anlog See Protocol SQ HS 12/02/19 08/02/20 History [Basaglar Kwikpen U-100] Albuterol Sulfate [Proair Hfa] 2 puff INHALATION RT-Q6H PRN 01/28/20 08/02/20 History Furosemide [Lasix] 80 mg PO BID@0530,1300 01/28/20 08/02/20 History INSULIN LISPRO (HumaLOG) [humaLOG] See Protocol SQ ACHS 03/17/20 08/02/20 History Sildenafil [Revatio] 20 mg PO TID@0530,1300,1900 04/20/20 08/02/20 History Benzonatate [Tessalon Perles] 100 mg PO TID@0530,1300,1900 05/13/20 08/02/20 History Cyclobenzaprine [Flexeril] 5 mg PO HS 05/13/20 08/02/20 History traMADol HCL [Ultram] 50 mg PO Q12H 05/13/20 08/02/20 History rOPINIRole HCL [Requip] 1 mg PO TID@0530,1300,1900 06/09/20 08/02/20 History Olopatadine HCl [Pataday] 1 - 2 drop BOTH EYES BID PRN 06/14/20 08/02/20 History Ascorbic Acid [Vitamin C] 500 mg PO DAILY@0530 07/09/20 08/02/20 History Atorvastatin [Lipitor] 40 mg PO HS@1900 07/09/20 08/02/20 History Dextromethorphan Polistirex 60 mg PO Q12H PRN 07/09/20 08/02/20 History [Delsym] Metoprolol Tartrate [Lopressor] 50 mg PO TID 07/09/20 08/02/20 History rifAMPin [Rifampin] 300 mg PO TID@0530,1300,1900 07/09/20 08/02/20 History DAPTOmycin [Cubicin] 500 mg IVPB Q48H vial 07/13/20 08/02/20 Rx Gabapentin [Neurontin] 100 mg PO TID 08/02/20 08/02/20 History Omeprazole 20 mg PO BID 08/02/20 08/02/20 History Allergies Allergy/AdvReac Type Severity Reaction Status Date / Time Anesthetics - Amide Type - Allergy Unknown Verified 08/02/20 08:55 Select A Anesthetics - Andree Type- Allergy Unknown Verified 08/02/20 08:55 Parabens ciprofloxacin [From Cipro] AdvReac AFFECTED Verified 08/02/20 08:55 EYESIGHT ciprofloxacin HCl AdvReac AFFECTED Verified 08/02/20 08:55 [From Cipro] EYESIGHT Iodinated Contrast Media AdvReac RENAL Verified 08/02/20 08:55 FAILURE Physical Exam Vitals: Vital Signs Temp Pulse Pulse Resp BP BP Pulse Ox 08/03/20 04:00 98.6 F 100 18 168/84 98 08/03/20 00:00 98.4 F 100 18 159/86 98 08/02/20 20:00 97.8 F 98 20 177/85 98 08/02/20 18:00 101 H 20 153/70 99 08/02/20 17:46 97.4 F L 85 21 168/62 08/02/20 16:50 98.8 F 94 18 172/85 95 08/02/20 14:51 88 19 159/84 99 08/02/20 13:30 98.7 F 87 17 134/79 98 08/02/20 12:31 104 H 18 199/115 98 08/02/20 11:54 100 18 186/101 100 Intake and Output 08/02/20 08/03/20 08/03/20 22:59 06:59 14:59 Intake Total 475 Output Total 4000 Balance -3525 Intake: Oral 475 Output: Hemodialysis 4000 Other: # Voids 1 Weight 79.379 kg 77 kg Results 08/03/20 08:06 08/03/20 08:06 Cardiac Enzymes 08/02/20 08/02/20 08/03/20 Range/Units 12:35 16:54 08:06 AST 18 (14-36) U/L Troponin I 0.083 H* 0.079 H* (0.000-0.034) ng/mL CBC 08/03/20 Range/Units 08:06 WBC 4.3 (3.8-10.6) k/uL RBC 2.80 L (3.80-5.40) m/uL Hgb 8.4 L (11.4-16.0) gm/dL Hct 26.2 L (34.0-46.0) % Plt Count 198 (150-450) k/uL Comprehensive Metabolic Panel 08/03/20 Range/Units 08:06 Sodium 132 L (137-145) mmol/L Potassium 5.7 H (3.5-5.1) mmol/L Chloride 91 L (98-107) mmol/L Carbon Dioxide 27 (22-30) mmol/L BUN 48 H (7-17) mg/dL Creatinine 5.05 H (0.52-1.04) mg/dL Glucose 148 H (74-99) mg/dL Calcium 9.3 (8.4-10.2) mg/dL AST 18 (14-36) U/L ALT 7 (4-34) U/L Alkaline Phosphatase 131 H (38-126) U/L Total Protein 6.6 (6.3-8.2) g/dL Albumin 3.7 (3.5-5.0) g/dL Current Medications Generic Name Dose Route Start Last Admin Trade Name Freq PRN Reason Stop Dose Admin Atorvastatin Calcium 40 mg 08/02/20 19:00 08/02/20 18:39 Atorvastatin 40 Mg Tab PO 40 mg HS@1900 ANNI Administration Clonidine 0.3 mg 08/02/20 13:00 08/03/20 08:17 Clonidine Hcl 0.1 Mg Tab PO 0.3 mg TID@0530,1300,1900 ANNI Administration Hydralazine HCl 100 mg 08/02/20 10:00 08/03/20 08:17 Hydralazine Hcl 50 Mg Tab PO 100 mg QID ANNI Administration Hydromorphone HCl 0.5 mg 08/02/20 14:19 08/02/20 14:49 Hydromorphone 0.5 Mg/0.5 Ml Syringe IVP 0.5 mg Q4HR PRN Administration Pain Hydromorphone HCl 1 mg 08/02/20 18:07 08/03/20 10:35 Hydromorphone 1 Mg/Ml 1 Ml Syringe IVP 1 mg Q4HR PRN Administration Pain Insulin Aspart 10 unit 08/02/20 12:30 08/03/20 08:37 Insulin Aspart (Novolog) 100 Unit/Ml Vial SQ Not Given AC-TID ANNI Metoprolol Tartrate 50 mg 08/02/20 10:00 08/03/20 08:17 Metoprolol Tartrate 50 Mg Tab PO 50 mg TID ANNI Administration Montelukast Sodium 10 mg 08/02/20 19:00 08/02/20 18:36 Montelukast 10 Mg Tab PO 10 mg HS@1900 ANNI Administration Naloxone HCl 0.2 mg 08/02/20 09:50 Naloxone 0.4 Mg/Ml 1 Ml Vial IV Q2M PRN Opioid Reversal Ondansetron HCl 4 mg 08/03/20 08:26 08/03/20 10:32 Ondansetron 4 Mg/2 Ml Vial IVP 4 mg Q6HR PRN Administration Nausea And Vomiting Pantoprazole Sodium 40 mg 08/02/20 21:00 08/03/20 08:17 Pantoprazole 40 Mg Tablet PO 40 mg BID ANNI Administration Prochlorperazine Maleate 5 mg 08/02/20 09:58 08/02/20 21:24 Prochlorperazine 5 Mg Tab PO 5 mg BID PRN Administration Nausea Rifampin 300 mg 08/02/20 13:00 08/02/20 18:35 Rifampin 300 Mg Cap PO 300 mg TID@0530,1300,1900 ANNI Administration Sildenafil Citrate 20 mg 08/02/20 13:00 08/02/20 18:35 Sildenafil 20 Mg Tab PO 20 mg TID@0530,1300,1900 ANNI Administration Intake and Output 08/02/20 08/03/20 08/03/20 22:59 06:59 14:59 Intake Total 475 Output Total 4000 Balance -3525 Intake: Oral 475 Output: Hemodialysis 4000 Other: # Voids 1 Weight 79.379 kg 77 kg 08/03/20 08:06 08/03/20 08:06
--- NOTE | 2020-08-03 14:40 | HP ---
HISTORY AND PHYSICAL DATE OF SERVICE: 08/02/2020 This 55-year-old white female with past medical history end-stage renal disease with hemodialysis, chronic pericardial effusion, hypertension, dyslipidemia, diabetes mellitus, pulmonary hypertension, pancreatitis, infective endocarditis, came in with worsening CHF and fluid buildup. Cardiology will need to be consulted for possible TK or worsening CHF as she has gained a lot of fluid and third-spacing of fluid at this time, affecting her breathing and her overall body. Her last ejection fraction 40% to 45%. History of MRSA bacteremia. Labs are reviewed. EKG is reviewed. REVIEW OF SYSTEMS: Fourteen-point review of systems include shortness of breath, severe pain in all 4 extremities, large third-spacing of fluids. She says fatigue, weakness. PHYSICAL EXAMINATION: Blood pressure 168/84, oxygen she is on 2 L of oxygen. Heart rates near 100, afebrile. Mild jaundice noticed. HEENT: Normocephalic, atraumatic. LUNGS: Clear. No chest wall tenderness. HEART: S1, S2. Systolic murmur at the base. No gallops or rubs. Abdomen is positive bowel sounds. Soft, nontender. EXTREMITIES: 2+ peripheral pulses. Generalized swelling in the lower extremities 2 to 3+ pedal edema. NEUROLOGIC: Alert and oriented x3. ASSESSMENT: 1. Fluid overload secondary to chronic kidney disease. 2. Hypomagnesemia. 3. Elevated troponin secondary to chronic kidney disease. 4. Pulmonary hypertension. 5. History of endocarditis, status post mitral valve replacement. 6. Hypertension. 7. Dyslipidemia. 8. Diabetes. PLAN: Dialysis. Await for Cardiology and endocrine to review fluid build up to see if we have to do anything with a further TK or echo. Continue current treatments. Please see further orders. MMODL / IJN: [id number] /
[2020-08-03] MEDS: diphenhydrAMINE 25 MG CAP PO PRN ×2 (14:47→22:43)
[2020-08-03 15:56] LABS: Anisocytosis Slight; Basophils % (A) 1 %; Eosinophils # (A) 0.1 k/uL (0-0.7); Eosinophils % (A) 1 %; HCT 25.3 % (34.0-46.0); Hypochromasia Moderate; Lymphocytes # (A) 0.3 k/uL (1.0-4.8); Lymphocytes % (A) 5 %; MCH 29.6 pg (25.0-35.0); MCHC 31.8 g/dL (31.0-37.0); MCV 93.1 fL (80.0-100.0); Mean Platelet Volume 7.4; Monocytes # (A) 0.3 k/uL (0-1.0); Monocytes % (A) 7 %; Neutrophils # (A) 4.3 k/uL (1.3-7.7); Neutrophils % (A) 86 %; Platelet Count 199 k/uL (150-450); Poikilocytosis Slight; RBC 2.72 m/uL (3.80-5.40); RDW 16.3 % (11.5-15.5)
[2020-08-03 16:05] LABS: INR 1.1 (<1.2); Prothrombin Time 11.8 sec (9.0-12.0)
[2020-08-03 16:15] LABS: Albumin 3.7 g/dL (3.5-5.0); Calcium 9.2 mg/dL (8.4-10.2); Potassium 4.9 mmol/L (3.5-5.1); Total Bilirubin 0.8 mg/dL (0.2-1.3); Total Protein 6.6 g/dL (6.3-8.2)
[2020-08-03 16:45] LABS: Glucose,Whole Blood 209 mg/dL (75-99)
--- NOTE | 2020-08-03 16:47 | PN ---
PROGRESS NOTE Patient is seen for followup for end-stage renal disease. She was admitted to the hospital with fluid overload. She did receive dialysis yesterday, with UF of about 4 L. Patient will be dialyzed again today. She is normally maintained on a Thursday, , Thursday schedule. Therefore she will have a routine treatment again tomorrow. Patient denies any chest pains. She denies noncompliance with fluids. PHYSICAL EXAMINATION: On examination today, blood pressure was 138/77, heart rate 86 per minute. She is afebrile. EXAMINATION OF THE HEART: S1 and S2. EXAMINATION OF LUNGS: Bilateral breath sounds are heard. Basal crackles are heard. ABDOMEN: Soft, distended with ascites. Examination of lower extremities shows edema 3+ bilaterally. CERTIFIED GENETIC COUNSELOR exam is grossly intact. LABS: Sodium of 132, potassium 5.7, BUN 48, creatinine 5.05, hemoglobin 8.0 g/dL. ASSESSMENT: 1. End-stage renal disease, on hemodialysis on a Thursday, , Thursday schedule. 2. Severe volume overload. Patient is receiving an extra treatment today. She will be dialyzed again tomorrow. Salt and fluid restriction is discussed. Patient has been compliant with her treatments as outpatient. 3. Hyperkalemia. Expect improvement with dialysis. Diet discussed with the patient. 4. History of infective endocarditis, status post mitral valve replacement in March of 2020. 5. Chronic liver disease. 6. Chronic kidney disease mineral bone disorder. PLAN: Hemodialysis today and then again in a.m. Maintain patient on Aranesp. She has chronic anemia, and her hemoglobin has mostly been in the 7s to 8s. Patient has been evaluated by Hematology previously. MMODL / IJN: [id number] /
[2020-08-03] MEDS: ATORVASTATIN 40 MG TAB PO SCH (17:10)
[2020-08-03] MEDS: MONTELUKAST 10 MG TAB PO SCH (17:10)
--- NOTE | 2020-08-03 17:22 | PN ---
PROGRESS NOTE This is a 55-year-old female with end-stage renal disease, fluid overload, seen by Cardiology, who cleared her for discharge. Waiting for all this third spacing of fluid to be removed with next dialysis sessions prior to being discharged. Her breathing is better. Leg swelling is little bit better. They took 3 L off today. CARDIOVASCULAR: S1, S2. LUNGS: Clear. GI: Soft. HEMATOLOGY: Negative Homans. In general she has anasarca-type changes with third spacing of fluids to her belly and her lower legs. ASSESSMENT: 1. End-stage renal disease. 2. Acute systolic diastolic heart failure with fluid overload. Continue with increased dialysis sessions. Replace electrolytes. 3. History of endocarditis. 4. Hypertension. 5. Hypothyroidism. 6. Diabetes. Multiple medical problems all appear to be stable at this time. MMODL / IJN: [id number] /
[2020-08-03 20:30] LABS: Glucose,Whole Blood 218 mg/dL (75-99)
[2020-08-04] MEDS: HYDROmorphone 1 MG/ML 1 ML SYRINGE IVP PRN ×5 (03:32→20:41)
[2020-08-04] MEDS: cloNIDine HCL 0.1 MG TAB PO SCH ×3 (05:44→19:42)
[2020-08-04] MEDS: SILDENAFIL 20 MG TAB PO SCH ×3 (05:45→19:43)
[2020-08-04] MEDS: rifAMPin 300 MG CAP PO SCH ×3 (05:45→19:43)
[2020-08-04 06:19] LABS: Glucose,Whole Blood 206 mg/dL (75-99)
[2020-08-04] MEDS: INSULIN ASPART (NovoLOG) 100 UNIT/ML VIAL SQ SCH ×6 (07:06→20:41)
[2020-08-04] MEDS: METOPROLOL TARTRATE 50 MG TAB PO SCH ×3 (07:56→21:04)
[2020-08-04] MEDS: hydrALAZINE HCL 50 MG TAB PO SCH ×4 (07:56→21:03)
[2020-08-04] MEDS: PANTOPRAZOLE 40 MG TABLET PO SCH ×2 (07:56→19:43)
[2020-08-04] MEDS: diphenhydrAMINE 25 MG CAP PO PRN ×3 (08:02→23:48)
[2020-08-04 08:58] LABS: Albumin 3.7 g/dL (3.5-5.0); Calcium 9.2 mg/dL (8.4-10.2); Potassium 5.3 mmol/L (3.5-5.1); Total Bilirubin 0.8 mg/dL (0.2-1.3); Total Protein 6.6 g/dL (6.3-8.2)
--- NOTE | 2020-08-04 11:33 | P.PN ---
Subjective Progress Note Date: 08/04/20 Principal diagnosis: This is a 55-year-old female with ESRD on dialysis Thursday came in with shortness of breath. She was been dialyzed twice now day before yesterday on her regular scheduled day as well as extra dialysis yesterday. She is known with recent mitral valve endocarditis with replacement in March 2020, chronic liver disease. She is much better but continues to have fair amount of edema otherwise lungs are clear Objective - Vital Signs Vital signs: Vital Signs Temp 98.3 F 08/04/20 07:55 Pulse 88 08/04/20 07:55 Resp 18 08/04/20 07:55 BP 142/73 08/04/20 07:55 Pulse Ox 97 08/04/20 07:55 Intake & Output 08/03/20 08/04/20 08/04/20 18:59 06:59 18:59 Intake Total 2160 550 Output Total 3000 200 Balance -840 -200 550 Weight 74 kg Intake: Oral 2160 550 Output: Urine 200 Hemodialysis 3000 Other: # Voids 1 On examination she is awake alert oriented comfortable on room air. HEENT exam no JVP neck is supple no facial asymmetry Lungs are clear to auscultation good air entry bilaterally Heart sounds unremarkable for any murmur rub gallop Abdomen soft nontender slightly distended Extremity exam was 2+ edema Neurologically awake alert oriented. - Labs CBC & Chem 7: 08/03/20 15:35 08/04/20 08:07 Labs: Abnormal Lab Results - Last 24 Hours (Table) 08/03/20 08/03/20 08/03/20 Range/Units 12:02 15:35 15:35 RBC 2.72 L (3.80-5.40) m/uL Hgb 8.0 L (11.4-16.0) gm/dL Hct 25.3 L (34.0-46.0) % RDW 16.3 H (11.5-15.5) % Lymphocytes # 0.3 L (1.0-4.8) k/uL Sodium 135 L (137-145) mmol/L Potassium (3.5-5.1) mmol/L Chloride 94 L (98-107) mmol/L Carbon Dioxide 31 H (22-30) mmol/L BUN 33 H (7-17) mg/dL Creatinine 3.69 H (0.52-1.04) mg/dL Glucose 223 H (74-99) mg/dL POC Glucose (mg/dL) 153 H (75-99) mg/dL Alkaline Phosphatase 138 H (38-126) U/L 08/03/20 08/03/20 08/04/20 Range/Units 16:44 20:29 06:18 RBC (3.80-5.40) m/uL Hgb (11.4-16.0) gm/dL Hct (34.0-46.0) % RDW (11.5-15.5) % Lymphocytes # (1.0-4.8) k/uL Sodium (137-145) mmol/L Potassium (3.5-5.1) mmol/L Chloride (98-107) mmol/L Carbon Dioxide (22-30) mmol/L BUN (7-17) mg/dL Creatinine (0.52-1.04) mg/dL Glucose (74-99) mg/dL POC Glucose (mg/dL) 209 H 218 H 206 H (75-99) mg/dL Alkaline Phosphatase (38-126) U/L 08/04/20 Range/Units 08:07 RBC (3.80-5.40) m/uL Hgb (11.4-16.0) gm/dL Hct (34.0-46.0) % RDW (11.5-15.5) % Lymphocytes # (1.0-4.8) k/uL Sodium 132 L (137-145) mmol/L Potassium 5.3 H (3.5-5.1) mmol/L Chloride 90 L (98-107) mmol/L Carbon Dioxide (22-30) mmol/L BUN 45 H (7-17) mg/dL Creatinine 4.57 H (0.52-1.04) mg/dL Glucose 222 H (74-99) mg/dL POC Glucose (mg/dL) (75-99) mg/dL Alkaline Phosphatase 138 H (38-126) U/L Assessment and Plan Assessment: Impression 1. ESRD on dialysis Thursday admitted with volume overload and has been dialyzed 2 days in a row. Remains somewhat fluid overloaded with edema but clear lungs. 2. History of endocarditis with bioprosthetic mitral valve replacement March 2020 stable 3. Chronic liver disease 4. Anemia of chronic kidney disease hemoglobin is 8. 5. Rule out iron deficiency. Recommendation 1. If possible try to dialyze her today but there are other patients who are more in need so it may be late at night. 2. Patient may be discharged home
[2020-08-04 11:43] LABS: Glucose,Whole Blood 204 mg/dL (75-99)
[2020-08-04] MEDS: ONDANSETRON 4 MG/2 ML VIAL IVP PRN (12:07)
[2020-08-04 13:05] LABS: Anisocytosis Slight; Basophils % (A) 1 %; Eosinophils # (A) 0.1 k/uL (0-0.7); Eosinophils % (A) 2 %; HCT 24.7 % (34.0-46.0); HGB 7.8 gm/dL (11.4-16.0); Hypochromasia Moderate; Lymphocytes # (A) 0.3 k/uL (1.0-4.8); Lymphocytes % (A) 7 %; MCH 30.1 pg (25.0-35.0); MCHC 31.7 g/dL (31.0-37.0); Mean Platelet Volume 8.1; Monocytes # (A) 0.2 k/uL (0-1.0); Monocytes % (A) 6 %; Neutrophils # (A) 3.2 k/uL (1.3-7.7); Neutrophils % (A) 84 %; Platelet Count 176 k/uL (150-450); RDW 16.5 % (11.5-15.5); WBC 3.8 k/uL (3.8-10.6)
--- NOTE | 2020-08-04 13:42 | PN ---
PROGRESS NOTE 55-year-old white female end stage renal disease came in with fluid overload, shortness of breath. She has been dialyzed twice now, the day before yesterday on regular scheduled day as well as extra dialysis yesterday. She had recent mitral valve endocarditis. She says she is much better with fluid edema. Temperature 98.3, pulse 80 to 88, respiratory rate 16 to 18. Blood pressure 142/73, temp O2 97% on room air. Well exam. No acute distress. Lungs are clear. Heart S1, S2. Abdomen is soft. Extremities 2-3+ edema and generalized anasarca type changes. Hemoglobin is down to 8, white count 5.0. Sodium 132, potassium 5.3, BUN is 45, creatinine 4.57, sugars mid 200s. ASSESSMENT: 1. End-stage renal disease. 2. Endocarditis. 3. Fluid overload secondary to end-stage renal disease. 4. Chronic liver disease. 5. Anemia of chronic disease. Possibly dialyze her here today or tomorrow and then discharged home maybe tomorrow. Please see further orders. MMODL / IJN: [id number] /
[2020-08-04 16:23] LABS: Glucose,Whole Blood 143 mg/dL (75-99)
[2020-08-04] MEDS: POLYMYXIN B-TRIMETHOPRIM SULF (10,000-1) OPHTH DROPS 10 ML BTL BOTH EYES SCH ×2 (17:54→23:48)
[2020-08-04 18:34] LABS: % Iron Saturation 27.08 (12.00-45.00)
[2020-08-04] MEDS: MONTELUKAST 10 MG TAB PO SCH (19:42)
[2020-08-04] MEDS: ATORVASTATIN 40 MG TAB PO SCH (19:43)
[2020-08-04 20:33] LABS: Glucose,Whole Blood 166 mg/dL (75-99)
[2020-08-05] MEDS: HYDROmorphone 1 MG/ML 1 ML SYRINGE IVP PRN ×2 (02:59→08:02)
[2020-08-05 04:48] VITALS: TEMP 98.2
[2020-08-05] MEDS: cloNIDine HCL 0.1 MG TAB PO SCH (05:24)
[2020-08-05] MEDS: ONDANSETRON 4 MG/2 ML VIAL IVP PRN (05:24)
[2020-08-05] MEDS: rifAMPin 300 MG CAP PO SCH (05:25)
[2020-08-05] MEDS: POLYMYXIN B-TRIMETHOPRIM SULF (10,000-1) OPHTH DROPS 10 ML BTL BOTH EYES SCH (05:25)
[2020-08-05] MEDS: SILDENAFIL 20 MG TAB PO SCH (05:25)
[2020-08-05 06:10] LABS: Glucose,Whole Blood 183 mg/dL (75-99)
[2020-08-05] MEDS: INSULIN ASPART (NovoLOG) 100 UNIT/ML VIAL SQ SCH ×2 (07:12→07:13)
[2020-08-05 08:01] VITALS: BP 180/86; PULSE 83; RESP 18
[2020-08-05] MEDS: PANTOPRAZOLE 40 MG TABLET PO SCH (08:03)
[2020-08-05] MEDS: METOPROLOL TARTRATE 50 MG TAB PO SCH (08:03)
[2020-08-05] MEDS: hydrALAZINE HCL 50 MG TAB PO SCH (08:03)
[2020-08-05] MEDS: diphenhydrAMINE 25 MG CAP PO PRN (08:03)
--- NOTE | 2020-08-05 11:16 | P.PN ---
Subjective Progress Note Date: 08/05/20 Principal diagnosis: This is a 55-year-old female with ESRD on dialysis Thursday came in with shortness of breath. She was been dialyzed 3 days in a row, yesterday 2 L were taken off but her blood pressure went down for patient but is not well recorded. Insight appropriate this morning is 180/86 Congestion have significant edema and possible mild ascites. She is on room air She has a loud murmur as well. She is known with recent mitral valve endocarditis with replacement in March 2020, chronic liver disease. Objective - Vital Signs Vital signs: Vital Signs Temp 98.2 F 08/05/20 07:59 Pulse 83 08/05/20 07:59 Resp 18 08/05/20 07:59 BP 180/86 08/05/20 07:59 Pulse Ox 97 08/05/20 07:59 Intake & Output 08/04/20 08/05/20 08/05/20 18:59 06:59 18:59 Intake Total 1025 200 Output Total 1999 Balance -975 200 Weight 75.9 kg Intake: Oral 1025 200 Output: Hemodialysis 1999 Other: # Voids 1 On examination awake alert oriented comfortable on room air HEENT exam no JVP neck is supple no facial asymmetry Lungs are clear to auscultation with air entry bilaterally Heart sounds are remarkable for a loud grade 3 systolic ejection murmur. Last echocardiogram dated 06/13/2020 shows bioprosthetic mitral valve functioning normally with a possible vegetation to the lateral wall of the left ventricle Abdomen is soft slightly distended and mild ascites. Although a computed tomography scan last year on 03/17/2020 did not show any ascites Extremity exam was 2+ edema Neurologically awake alert oriented - Labs CBC & Chem 7: 08/04/20 08:07 08/04/20 08:07 Labs: Abnormal Lab Results - Last 24 Hours (Table) 08/04/20 08/04/20 08/04/20 Range/Units 08:07 08:07 11:42 RBC 2.60 L (3.80-5.40) m/uL Hgb 7.8 L (11.4-16.0) gm/dL Hct 24.7 L (34.0-46.0) % RDW 16.5 H (11.5-15.5) % Lymphocytes # 0.3 L (1.0-4.8) k/uL POC Glucose (mg/dL) 204 H (75-99) mg/dL TIBC 192 L (228-460) ug/dL 08/04/20 08/04/20 08/05/20 Range/Units 16:21 20:32 06:08 RBC (3.80-5.40) m/uL Hgb (11.4-16.0) gm/dL Hct (34.0-46.0) % RDW (11.5-15.5) % Lymphocytes # (1.0-4.8) k/uL POC Glucose (mg/dL) 143 H 166 H 183 H (75-99) mg/dL TIBC (228-460) ug/dL Assessment and Plan Assessment: Impression 1. ESRD on dialysis Thursday admitted with volume overload and has been dialyzed 3 days in a row. Remains somewhat fluid overloaded with edema but clear lungs. 2. History of endocarditis with bioprosthetic mitral valve replacement March 2020 stable. She has a loud grade 3 systolic ejection murmur 3. Chronic liver disease, possible bursitis 4. Anemia of chronic kidney disease hemoglobin is 8. 5. Rule out iron deficiency. Iron saturations 27% on 08/04/2020 Recommendation 1. Patient may be discharged home 2. Will give her IV Ferrlecit 1 dose
[2020-08-05] MEDS ORDERED: SODIUM FERRIC GLUCONAT-SUCROSE 125 MG in SODIUM CHLORIDE 0.9% 100 ML IVPB ONE (12:00)
--- NOTE | 2020-08-05 13:16 | DS ---
DISCHARGE SUMMARY 55-year-old white female came with fluid overload, end-stage renal disease, hypertension acceleration, abdominal pain, was seen by Nephrology gave extra dialysis doses for 2-3 days at which time she was stable with fluid removal. Her pain levels and extreme swelling went away to the point she could go home. She will go home on Thursday. Follow up on Thursday for dialysis. MEDICATIONS: She takes Benadryl at home 25 q.8 hours p.r.n. for itching. Polytrim eye drops 2 drops b.i.d. daily each eye until they are better. Clonidine 0.3 mg t.i.d., Compazine 5 mg b.i.d. p.r.n. Humalog 10 units subcu a.c. t.i.d., Apresoline 100 q.i.d., [place] 7.5 q.8 hours, Singulair 10 daily, Basaglar Quick Pen see protocol, ProAir HFA 2 puffs Q 4 hours p.r.n., regular insulin a.c. q.h.s., Revatio 20 mg t.i.d., tramadol 50 q.12h p.r.n., vitamin C 500 daily, rifampin 300 t.i.d., Lipitor 40 mg daily, Lopressor 50 t.i.d., daptomycin 500 IV piggyback Q 48 hours, omeprazole 20 b.i.d., Neurontin 100 t.i.d. Follow up in office in a week. CONDITION: Stable. PROGNOSIS: Guarded. Ambulate as tolerated. Continue antibiotics for endocarditis treatment. MMODL / IJN: [id number] /
== END 2020-08-05 12:03 | disposition home or self-care (01) | DRG 291 ==
LOC: EC 07:34 → 3SCARD 09:50
PROVIDERS: ADMIT Family Medicine; ATTEND Family Medicine
PROC: 5A1D70Z Performance of Urinary Filtration, Intermittent, Less than 6 Hours Per Day (ICD-10-PCS; principal; 2020-08-02)
DX: I13.2 Hypertensive heart and chronic kidney disease with heart failure and with stage 5 chronic kidney disease, or end stage renal disease (principal); I50.41 Acute combined systolic (congestive) and diastolic (congestive) heart failure; N18.6 End stage renal disease; I33.0 Acute and subacute infective endocarditis; I27.20 Pulmonary hypertension, unspecified; D63.1 Anemia in chronic kidney disease; E83.9 Disorder of mineral metabolism, unspecified; E11.22 Type 2 diabetes mellitus with diabetic chronic kidney disease; E11.36 Type 2 diabetes mellitus with diabetic cataract; H35.63 Retinal hemorrhage, bilateral; Z99.2 Dependence on renal dialysis; Z79.4 Long term (current) use of insulin; Z20.822 Contact with and (suspected) exposure to COVID-19; G51.0 Bell's palsy; E03.9 Hypothyroidism, unspecified; E78.1 Pure hyperglyceridemia; E78.5 Hyperlipidemia, unspecified; E83.42 Hypomagnesemia; E87.5 Hyperkalemia; K76.9 Liver disease, unspecified; M54.5 Low back pain; R77.8 Other specified abnormalities of plasma proteins; H26.9 Unspecified cataract; Z79.2 Long term (current) use of antibiotics; Z79.891 Long term (current) use of opiate analgesic; Z79.899 Other long term (current) drug therapy; Z87.19 Personal history of other diseases of the digestive system; Z86.79 Personal history of other diseases of the circulatory system; Z87.01 Personal history of pneumonia (recurrent); Z86.14 Personal history of Methicillin resistant Staphylococcus aureus infection; Z86.19 Personal history of other infectious and parasitic diseases; Z87.440 Personal history of urinary (tract) infections; Z87.42 Personal history of other diseases of the female genital tract; Z98.890 Other specified postprocedural states; Z88.4 Allergy status to anesthetic agent; Z88.1 Allergy status to other antibiotic agents; Z91.041 Radiographic dye allergy status; Z82.49 Family history of ischemic heart disease and other diseases of the circulatory system; Z80.8 Family history of malignant neoplasm of other organs or systems
CPT/HCPCS: 36415; 71046; 80053; 83540; 83550; 83605; 83735; 83880; 84484; 85025; 85610; 85730; 87635; 90935; 93005; 99285

== ENCOUNTER 2020-08-13 10:03 | Observation (INO) | payer OTHER ==
--- NOTE | 2020-08-13 11:55 | ED ---
General Adult HPI - General Chief complaint: Abdominal Pain Stated complaint: Dialysis pt - complication Time Seen by Provider: 08/13/20 11:30 Source: patient Mode of arrival: ambulatory Limitations: no limitations - History of Present Illness Initial comments: Dictation was produced using [employer] dictation software. please excuse any grammatical, word or spelling errors. This patient was cared for during a federal and state declared state of ergency secondary to Covid 19 Chief Complaint: 55-year-old female who has past medical history of ESRD presents emergency department for concerns of dialysis History of Present Illness: 55-year-old female her social work assistant is Dr. Jones. She is dialyzed Thursday. Patient has not missed any dialysis in the last week. She had a full treatment on Thursday. Today she is here in emergency department because she feels like she needs to be a dialyzed a day early. She gets dialysis through a percutaneous catheter in her right chest. Patient feels like her abdomen is more distended than usual. She also complains of swelling in her legs. She has no trouble breathing. She has acute on chronic back pain. These are all which she suggests R symptoms of need to be di alyzed. Patient has no other complaints. The ROS documented in this emergency department record has been reviewed and confirmed by me. Those systems with pertinent positive or negative responses h ave been documented in the HPI. All other systems are other negative and/or noncontributory. PHYSICAL EXAM: General Impression: Alert and oriented x3, not in acute distress HEENT: Normocephalic atraumatic, extra-ocular movements intact, pupils equal and reactive to light bilaterally, mucous membranes moist. Cardiovascular: Heart regular rate and rhythm Chest: Able to complete full sentences, no retractions, no tachypnea Abdomen: abdomen soft, non-tender, distended with fluid wave, no organomegaly Musculoskeletal: Pulses present and equal in all extremities, 1+ pitting edema Motor: no focal deficits noted Neurological: CN II-XII grossly intact, no focal motor or sensory deficits noted Skin: Intact with no visualized rashes Psych: Normal affect and mood ED course: 55-year-old female presents to the emergency department for concerns of needing dialysis one day early. Vital signs upon arrival shows heart rate of 110, 91% on room air. Repeat oxygen was 90%. Laboratory evaluation obtained. Patient's CBC and metabolic panel are within usual limits. Coronavirus is negative. Chest x-ray shows signs of fluid overload. She does have cardiac megaly with. Hilar hazy densities. Patient does complain of some mild exertional dyspnea. Case is discussed with nephrology who will dialyze patient tonight if she gets admitted. Patient states she does not feel comfortable going home with her current symptoms. Patient be admitted to Dr. Bragg who is agreeable with excepting patient's care. EKG interpretation: Ventricular rate 80, normal sinus rhythm,. Interval 188, QRS 92, QTc 467. No CT prolongation, no QTC prolongation, no ST or T-wave changes noted. EKG compared to 08/02/2020 showing no changes. Overall, this EKG is unremarkable - Related Data Home Medications Medication Instructions Recorded Confirmed cloNIDine HCL [Catapres] 0.3 mg PO TID@0530,1300,1900 12/16/16 08/13/20 Prochlorperazine [Compazine] 5 mg PO BID PRN 10/26/17 08/13/20 INSULIN LISPRO (humaLOG) [humaLOG] 10 unit SQ AC-TID 07/12/18 08/13/20 hydrALAZINE HCL [Apresoline] 100 mg PO QID 12/14/18 08/13/20 HYDROcodone/APAP 7.5-325MG [[place] 1 tab PO Q8H 11/08/19 08/13/20 7.5-325] Montelukast [Singulair] 10 mg PO HS@1900 11/08/19 08/13/20 Insulin Glargine,Hum.rec.anlog See Protocol SQ HS 12/02/19 08/13/20 [Basaglar Kwikpen U-100] Albuterol Sulfate [Proair Hfa] 2 puff INHALATION RT-Q6H PRN 01/28/20 08/13/20 INSULIN LISPRO (HumaLOG) [humaLOG] See Protocol SQ ACHS 03/17/20 08/13/20 Sildenafil [Revatio] 20 mg PO TID@0530,1300,1900 04/20/20 08/13/20 traMADol HCL [Ultram] 50 mg PO Q12H 05/13/20 08/13/20 Ascorbic Acid [Vitamin C] 500 mg PO DAILY@0530 07/09/20 08/13/20 Atorvastatin [Lipitor] 40 mg PO HS@1900 07/09/20 08/13/20 Metoprolol Tartrate [Lopressor] 50 mg PO TID 07/09/20 08/13/20 rifAMPin [Rifampin] 300 mg PO TID@0530,1300,1900 07/09/20 08/13/20 Gabapentin [Neurontin] 100 mg PO TID 08/02/20 08/13/20 Omeprazole 20 mg PO BID 08/02/20 08/13/20 Benzonatate [Tessalon Perles] 100 mg PO TID PRN 08/13/20 08/13/20 Cyclobenzaprine [Flexeril] 5 mg PO HS 08/13/20 08/13/20 Furosemide [Lasix] 40 mg PO DAILY 08/13/20 08/13/20 diazePAM [Valium] 5 mg PO BID 08/13/20 08/13/20 rOPINIRole HCL [Requip] 1 mg PO TID 08/13/20 08/13/20 Allergies Allergy/AdvReac Type Severity Reaction Status Date / Time Anesthetics - Amide Type - Allergy Unknown Verified 08/13/20 12:22 Select A Anesthetics - Andree Type- Allergy Unknown Verified 08/13/20 12:22 Parabens ciprofloxacin [From Cipro] AdvReac AFFECTED Verified 08/13/20 12:22 EYESIGHT ciprofloxacin HCl AdvReac AFFECTED Verified 08/13/20 12:22 [From Cipro] EYESIGHT Iodinated Contrast Media AdvReac RENAL Verified 08/13/20 12:22 FAILURE Review of Systems ROS Statement: Those systems with pertinent positive or pertinent negative responses have been documented in the HPI. ROS Other: All systems not noted in ROS Statement are negative. 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 hemodialysis for acute kidney injury 2 months in 2009 after pancreatic OR, 11/2015 diagnosed w/ chronic kidney disease-hemodialysis /-last hemodialysis 06/02/19, IDDM type II, past DKA, UTI, chronic anemia, frequent body cramping, occasional low back pain, carter's palsy x2, past L leg fx, possible liver disease-recent liver bx-results unknown per pt. History of Any Multi-Drug Resistant Organisms: MRSA Date of last positivie culture/infection: 06/10/20 MDRO Source:: Blood Past Surgical History: Cardiac Valve Replacement, Orthopedic Surgery, Uterine Ablation Additional Past Surgical History / Comment(s): Recent liver biopsy done at [place] but pt states they have never contacted her with the results, 08/26/17 colonoscopy with polypectomy/bx, pancreatic resection at [facility] 2009, bone marrow biopsies X2-last one 05/19/16,. dialysis chest port x 2 with removals, Left arm shunt placement for dialysis - December 2015 and a revision done with shunt. Left forearm Vein Revision - October 2019 Past Anesthesia/Blood Transfusion Reactions: No Reported Reaction Additional Past Anesthesia/Blood Transfusion Reaction / Comment(s): Pt has received blood transfusions without reaction. Past Psychological History: No Psychological Hx Reported Smoking Status: Never smoker Past Alcohol Use History: None Reported Past Drug Use History: None Reported - Past Family History Brother(s) Family Medical History: No Reported History Mother Family Medical History: Cancer Additional Family Medical History / Comment(s): . Father Family Medical History: Hypertension Additional Family Medical History / Comment(s): alcoholism General Exam Limitations: no limitations Course Vital Signs 08/13/20 08/13/20 10:05 13:52 Temperature 98.4 F Pulse Rate 110 H 93 Respiratory 18 20 Rate Blood Pressure 188/91 166/93 O2 Sat by Pulse 91 L 98 Oximetry Medical Decision Making - Lab Data Result diagrams: 08/13/20 12:17 08/13/20 12:17 Lab Results 08/13/20 08/13/20 08/13/20 Range/Units 12:13 12:17 12:17 WBC 3.5 L (3.8-10.6) k/uL RBC 2.39 L (3.80-5.40) m/uL Hgb 7.5 L (11.4-16.0) gm/dL Hct 22.1 L (34.0-46.0) % MCV 92.8 (80.0-100.0) fL MCH 31.5 (25.0-35.0) pg MCHC 33.9 (31.0-37.0) g/dL RDW 16.5 H (11.5-15.5) % Plt Count 120 L (150-450) k/uL MPV 7.4 Neutrophils % 85 % Lymphocytes % 6 % Monocytes % 6 % Eosinophils % 1 % Basophils % 0 % Neutrophils # 3.0 (1.3-7.7) k/uL Lymphocytes # 0.2 L (1.0-4.8) k/uL Monocytes # 0.2 (0-1.0) k/uL Eosinophils # 0.0 (0-0.7) k/uL Basophils # 0.0 (0-0.2) k/uL Anisocytosis Slight Sodium 135 L (137-145) mmol/L Potassium 4.9 (3.5-5.1) mmol/L Chloride 92 L (98-107) mmol/L Carbon Dioxide 30 (22-30) mmol/L Anion Gap 13 mmol/L BUN 47 H (7-17) mg/dL Creatinine 5.02 H (0.52-1.04) mg/dL Est GFR (CKD-EPI)AfAm 11 (>60 ml/min/1.73 sqM) Est GFR (CKD-EPI)NonAf 9 (>60 ml/min/1.73 sqM) Glucose 148 H (74-99) mg/dL Calcium 8.6 (8.4-10.2) mg/dL Coronavirus (PCR) Not Detected (Not Detectd) Disposition Clinical Impression: Fluid overload Disposition: ADMITTED IP TO THIS [facility] Condition: Fair Referrals: David Bragg MD [Primary Care Provider] - 1-2 days Decision Time: 14:17
--- NOTE | 2020-08-13 12:37 | XR ---
EXAMINATION TYPE: XR chest 1V portable DATE OF EXAM: 08/13/2020 Comparison: 08/02/2020 Clinical History: 55-year-old female pain Findings: Median sternotomy wires are present. Heart borderline enlarged. Perihilar and hazy bilateral densitie s. Right-sided double-lumen hemodialysis catheter with tips in the right atrium. Vascular stent at th e left axilla. No pleural effusion. Impression: Cardiomegaly with perihilar and hazy densities. Correlate for fluid overload state with mild pulmonar y vascular congestion. No luis enrique pulmonary edema.
[2020-08-13 12:53] LABS: Anisocytosis Slight; Basophils % (A) 0 %; Eosinophils % (A) 1 %; HCT 22.1 % (34.0-46.0); HGB 7.5 gm/dL (11.4-16.0); Lymphocytes # (A) 0.2 k/uL (1.0-4.8); Lymphocytes % (A) 6 %; MCH 31.5 pg (25.0-35.0); MCHC 33.9 g/dL (31.0-37.0); MCV 92.8 fL (80.0-100.0); Mean Platelet Volume 7.4; Monocytes # (A) 0.2 k/uL (0-1.0); Monocytes % (A) 6 %; Neutrophils % (A) 85 %; Platelet Count 120 k/uL (150-450); RBC 2.39 m/uL (3.80-5.40); RDW 16.5 % (11.5-15.5); WBC 3.5 k/uL (3.8-10.6)
[2020-08-13 13:01] LABS: Calcium 8.6 mg/dL (8.4-10.2); Potassium 4.9 mmol/L (3.5-5.1)
[2020-08-13] MEDS ORDERED: MORPHINE SULFATE 4 MG/ML SYRINGE IV STA (13:32)
[2020-08-13] MEDS ORDERED: NALOXONE 0.4 MG/ML 1 ML VIAL IV PRN (14:14)
[2020-08-13] MEDS ORDERED: PROCHLORPERAZINE 5 MG TAB PO PRN (17:16)
[2020-08-13] MEDS: ONDANSETRON 4 MG/2 ML VIAL IVP PRN (18:22)
[2020-08-13 18:28] LABS: Glucose,Whole Blood 94 mg/dL (75-99)
[2020-08-13] MEDS: traMADol 50 MG TAB PO SCH (18:51)
[2020-08-13] MEDS: hydrALAZINE HCL 50 MG TAB PO SCH ×2 (18:51→22:53)
[2020-08-13] MEDS: HYDROcodone/APAP 7.5-325MG 1 EACH TAB PO SCH ×2 (18:51→21:31)
[2020-08-13] MEDS: MORPHINE SULFATE 2 MG/ML SYRINGE IVP PRN ×2 (19:03→22:54)
--- NOTE | 2020-08-13 19:46 | HP ---
HISTORY AND PHYSICAL [age]yn[age][id number]-old white female was sent here from dialysis center for fluid overload, congestive heart failure type changes, shortness of breath. She stated she was sent here by Dr. Jones, missed dialysis she had a full treatment on Thursday. She feels like she needs to be dialyzed a day early. She is getting dialysis through her percutaneous catheter in her right chest, feels like her abdomen is more distended than usual. Complaining of swelling in her legs, acute on chronic severe pain. She suggested IR symptoms need to be dialyzed, respiratory symptoms due to shortness of breath, chest pain. Fourteen-point review of systems otherwise negative. She is an alert white female who looks fluid-overloaded, generalized anasarca type changes. CARDIOVASCULAR: S1, S2. Lungs show rales at the base. Abdomen is distended, obesity. She has 1 to 2+ pedal edema on the leg extremities. NEUROLOGIC: Cranial nerves are intact. PSYCH: Fair mood and affect. SKIN: Warm, dry, intact. Heart rate is 110. Oxygen level is 91 on room air. Chest x-ray shows fluid overload, cardiomegaly low density. EKG shows sinus rhythm, no ST-T changes. Home medicines: Please see list. ASSESSMENT: 1. Fluid overload. 2. Leukopenia. 3. Pancytopenia. 4. End-stage renal disease. 5. Hyponatremia. 6. Acute on chronic anemia. 7. Fluid overload. Dialysis will have to be done extra. Get Cardiology involved as well as dialysis for end-stage renal disease due to fluid overload. Prognosis guarded. MMODL / IJN: [id number] /
[2020-08-13] MEDS ORDERED: CYCLOBENZAPRINE 5 MG TAB PO SCH (21:00)
[2020-08-13] MEDS: rifAMPin 300 MG CAP PO SCH (21:32)
[2020-08-13] MEDS: ATORVASTATIN 40 MG TAB PO SCH (21:32)
[2020-08-13] MEDS: diazePAM 5 MG TAB PO SCH (21:32)
[2020-08-13] MEDS: MONTELUKAST 10 MG TAB PO SCH (21:32)
[2020-08-13] MEDS: GABAPENTIN 100 MG CAP PO SCH (21:32)
[2020-08-13] MEDS: SILDENAFIL 20 MG TAB PO SCH (21:32)
[2020-08-13] MEDS: METOPROLOL TARTRATE 50 MG TAB PO SCH (21:32)
[2020-08-13] MEDS: cloNIDine HCL 0.1 MG TAB PO SCH (21:33)
[2020-08-13] MEDS: ALBUTEROL HFA INHALER INHALATION PRN (23:29)
[2020-08-14] MEDS: MORPHINE SULFATE 2 MG/ML SYRINGE IVP PRN ×4 (04:05→19:58)
[2020-08-14 04:41] LABS: Anisocytosis Slight; Basophils % (A) 1 %; Eosinophils # (A) 0.1 k/uL (0-0.7); Eosinophils % (A) 2 %; HCT 24.6 % (34.0-46.0); HGB 8.2 gm/dL (11.4-16.0); Hypochromasia Slight; Lymphocytes # (A) 0.3 k/uL (1.0-4.8); Lymphocytes % (A) 7 %; MCH 31.3 pg (25.0-35.0); MCHC 33.4 g/dL (31.0-37.0); MCV 93.7 fL (80.0-100.0); Mean Platelet Volume 8.6; Monocytes # (A) 0.3 k/uL (0-1.0); Monocytes % (A) 6 %; Neutrophils # (A) 3.3 k/uL (1.3-7.7); Neutrophils % (A) 83 %; Platelet Count 133 k/uL (150-450); RBC 2.63 m/uL (3.80-5.40); RDW 16.7 % (11.5-15.5); WBC 3.9 k/uL (3.8-10.6)
[2020-08-14] MEDS: HYDROcodone/APAP 7.5-325MG 1 EACH TAB PO SCH ×3 (04:53→17:49)
[2020-08-14] MEDS: ONDANSETRON 4 MG/2 ML VIAL IVP PRN ×3 (05:06→19:32)
[2020-08-14 05:22] LABS: Albumin 3.5 g/dL (3.5-5.0); Potassium 5.1 mmol/L (3.5-5.1); Total Bilirubin 0.7 mg/dL (0.2-1.3); Total Protein 6.3 g/dL (6.3-8.2)
[2020-08-14] MEDS: ASCORBIC ACID 500 MG TAB PO SCH (06:25)
[2020-08-14] MEDS: traMADol 50 MG TAB PO SCH ×2 (06:25→17:48)
[2020-08-14 08:56] LABS: Glucose,Whole Blood 192 mg/dL (75-99)
[2020-08-14] MEDS: rifAMPin 300 MG CAP PO SCH ×3 (11:40→20:23)
[2020-08-14] MEDS: cloNIDine HCL 0.1 MG TAB PO SCH ×3 (11:40→19:35)
[2020-08-14] MEDS: SILDENAFIL 20 MG TAB PO SCH ×3 (11:41→20:23)
[2020-08-14] MEDS: PANTOPRAZOLE 40 MG TABLET PO SCH (11:56)
[2020-08-14] MEDS: FUROSEMIDE 40 MG TAB PO SCH (11:56)
[2020-08-14] MEDS: METOPROLOL TARTRATE 50 MG TAB PO SCH ×3 (11:56→21:24)
[2020-08-14] MEDS: GABAPENTIN 100 MG CAP PO SCH ×3 (11:57→21:24)
[2020-08-14] MEDS: diazePAM 5 MG TAB PO SCH ×2 (11:57→21:24)
[2020-08-14] MEDS: hydrALAZINE HCL 50 MG TAB PO SCH ×4 (12:00→21:24)
[2020-08-14 12:15] LABS: Glucose,Whole Blood 223 mg/dL (75-99)
[2020-08-14] MEDS: INSULIN ASPART (NovoLOG) 100 UNIT/ML VIAL SQ SCH ×3 (12:21→19:57)
--- NOTE | 2020-08-14 14:19 | US ---
EXAMINATION TYPE: US abdomen limited DATE OF EXAM: 08/14/2020 COMPARISON: NONE CLINICAL HISTORY: ascites. ascites Ascites is visualized. IMPRESSION: 1. Mild ascites
--- NOTE | 2020-08-14 14:23 | P.CRDCN ---
History of Present Illness Consult date: 08/14/20 History of present illness: HISTORY OF PRESENT ILLNESS: This is a 55-year-old female with a past medical history significant for end- stage renal disease on hemodialysis, chronic pericardial effusion, hypertension, hyperlipidemia, diabetes mellitus, pulmonary hypertension, and pancreatitis. Patient also has a history of infective endocarditis and underwent mitral valve replacement with a tissue valve in March 2020 at [facility]. Patient follows in the office with Dr. Tesfaye. We have been asked to see the patient in consultation for fluid overload. Patient examined at the bedside in the emergency room. Patient states she has been attending her dialysis as scheduled and has not missed any treatments. She states she is having increased swelling in her abdomen and was told that she might need to have this drained. She denies any chest pain or pressure. EKG reveals sinus mechanism with no signs of acute ischemia Chest xray cardiomegaly with perihilar and hazy densities. Correlate for fluid overload state with mild pulmonary vascular congestion. No luis enrique pulmonary edema. Laboratory data: WBC 3.9. Hemoglobin 8.2. Platelet count 133. Sodium 135. Potassium 5.1. BUN 36. Creatinine 4.86. Current home cardiac medications include hydralazine 100 mg 4 times a day, Catapres 0.3 mg 3 times a day, metoprolol tartrate 50 mg 3 times a day, Lasix 40 mg daily, Lipitor 40 mg daily Most recent echocardiogram obtained May 2020 revealed ejection fraction 50- 55% REVIEW OF SYSTEMS: At the time of my exam: CONSTITUTIONAL: Denies fever or chills. HEENT: Denies blurred vision, vision changes, or eye pain. Denies hemoptysis CARDIOVASCULAR: Denies chest pain. Denies orthopnea. Denies PND. Denies palpitations RESPIRATORY: Denies shortness of breath. GASTROINTESTINAL: Denies abdominal pain. Denies nausea or vomiting. HEMATOLOGIC: Denies bleeding disorders. GENITOURINARY: Denies any blood in urine. SKIN: Denies pruitis. Denies rash. PHYSICAL EXAM: VITAL SIGNS: Reviewed. GENERAL: Well-developed in no acute distress. HEENT: Head is normocephalic. Pupils are equal, round. Sclerae anicteric. Mucous membranes of the mouth are moist. Neck supple. No JVD or thyromegaly LUNGS: Respirations even and unlabored. Lungs diminished bilaterally. HEART: Regular rate and rhythm. S1 and S2 heard. ABDOMEN: Firm. Distended. EXTREMITIES: Normal range of motion. No clubbing or cyanosis. Peripheral pulses intact. 2+ lower extremity edema NEUROLOGIC: Awake and alert. Oriented x 3. ASSESSMENT: Fluid overdue to CKD Worsening abdominal edema per patient End-stage renal disease on hemodialysis Hypertension Hyperlipidemia History of infective endocarditis History of mitral valve replacement Pulmonary hypertension Diabetes mellitus PLAN: Continue dialysis per nephrology Further workup of abdominal distention and ascites per internal medicine Patient is currently stable from a cardiac standpoint We will sign off. Patient to follow up outpatient with Dr. Tesfaye Nurse practitioner note has been reviewed by physician. Signing provider agrees with the documented findings, assessment, and plan of care. Past Medical History Past Medical History: Blood Disorder, Heart Failure, Diabetes Mellitus, Dialysis, Hyperlipidemia, Hypertension, Liver Disease, Pneumonia, Renal Disease Additional Past Medical History / Comment(s): Pt recently admitted to [facility] on 08/02/20 with fluid overload/swelling. Other hx: MRSA infection in blood with IV ABX while at dialysis until 09/06/20, bilateral cataracts, recently diagnosed with bilateral retinal hemorrhages, hypertriglyceridemia-induced acute pancreatitis, THEN necrotizing pancreatitis. hemodialysis for acute kidney injury 2 months in 2009 after pancreatic OR, 11/2015 diagnosed w/ chronic kidney disease-hemodialysis -last hemodialysis 06/02/19, IDDM type II, past DKA, UTI, chronic anemia, frequent body cramping, occasional low back pain, carter's palsy x2, past L leg fx, possible liver disease-recent liver bx-results unknown per pt. History of Any Multi-Drug Resistant Organisms: MRSA Date of last positivie culture/infection: 06/10/20 MDRO Source:: Blood Past Surgical History: Cardiac Valve Replacement, Orthopedic Surgery, Uterine Ablation Additional Past Surgical History / Comment(s): Recent liver biopsy done at [place] but pt states they have never contacted her with the results, 08/26/17 colonoscopy with polypectomy/bx, pancreatic resection at [facility] 2009, bone marrow biopsies X2-last one 05/19/16,. dialysis chest port x 2 with removals, Left arm shunt placement for dialysis - December 2015 and a revision done with shunt. Left forearm Vein Revision - October 2019 Past Anesthesia/Blood Transfusion Reactions: No Reported Reaction Additional Past Anesthesia/Blood Transfusion Reaction / Comment(s): Pt has received blood transfusions without reaction. Smoking Status: Never smoker - Past Family History Brother(s) Family Medical History: No Reported History Mother Family Medical History: Cancer Additional Family Medical History / Comment(s): . Father Family Medical History: Hypertension Additional Family Medical History / Comment(s): alcoholism Medications and Allergies Home Medications Medication Instructions Recorded Confirmed Type cloNIDine HCL [Catapres] 0.3 mg PO TID@0530,1300,1900 12/16/16 08/13/20 History Prochlorperazine [Compazine] 5 mg PO BID PRN 10/26/17 08/13/20 History INSULIN LISPRO (humaLOG) [humaLOG] 10 unit SQ AC-TID 07/12/18 08/13/20 History hydrALAZINE HCL [Apresoline] 100 mg PO QID 12/14/18 08/13/20 History HYDROcodone/APAP 7.5-325MG [[place] 1 tab PO Q8H 11/08/19 08/13/20 History 7.5-325] Montelukast [Singulair] 10 mg PO HS@1900 11/08/19 08/13/20 History Insulin Glargine,Hum.rec.anlog See Protocol SQ HS 12/02/19 08/13/20 History [Basaglar Kwikpen U-100] Albuterol Sulfate [Proair Hfa] 2 puff INHALATION RT-Q6H PRN 01/28/20 08/13/20 History INSULIN LISPRO (HumaLOG) [humaLOG] See Protocol SQ ACHS 03/17/20 08/13/20 History Sildenafil [Revatio] 20 mg PO TID@0530,1300,1900 04/20/20 08/13/20 History traMADol HCL [Ultram] 50 mg PO Q12H 05/13/20 08/13/20 History Ascorbic Acid [Vitamin C] 500 mg PO DAILY@0530 07/09/20 08/13/20 History Atorvastatin [Lipitor] 40 mg PO HS@1900 07/09/20 08/13/20 History Metoprolol Tartrate [Lopressor] 50 mg PO TID 07/09/20 08/13/20 History rifAMPin [Rifampin] 300 mg PO TID@0530,1300,1900 07/09/20 08/13/20 History Gabapentin [Neurontin] 100 mg PO TID 08/02/20 08/13/20 History Omeprazole 20 mg PO BID 08/02/20 08/13/20 History Benzonatate [Tessalon Perles] 100 mg PO TID PRN 08/13/20 08/13/20 History Cyclobenzaprine [Flexeril] 5 mg PO HS 08/13/20 08/13/20 History Furosemide [Lasix] 40 mg PO DAILY 08/13/20 08/13/20 History diazePAM [Valium] 5 mg PO BID 08/13/20 08/13/20 History rOPINIRole HCL [Requip] 1 mg PO TID 08/13/20 08/13/20 History Allergies Allergy/AdvReac Type Severity Reaction Status Date / Time Anesthetics - Amide Type - Allergy Unknown Verified 08/13/20 12:22 Select A Anesthetics - Andree Type- Allergy Unknown Verified 08/13/20 12:22 Parabens ciprofloxacin [From Cipro] AdvReac AFFECTED Verified 08/13/20 12:22 EYESIGHT ciprofloxacin HCl AdvReac AFFECTED Verified 08/13/20 12:22 [From Cipro] EYESIGHT Iodinated Contrast Media AdvReac RENAL Verified 08/13/20 12:22 FAILURE Physical Exam Vitals: Vital Signs Temp Pulse Pulse Resp BP BP Pulse Ox 08/14/20 12:57 98.6 F 100 18 160/81 92 L 08/14/20 12:32 97.0 F L 103 H 20 148/97 08/14/20 08:59 98.0 F 110 H 20 132/74 08/14/20 06:34 77 18 173/97 94 L 08/13/20 22:55 99 16 138/79 97 08/13/20 21:34 124 H 16 151/74 98 08/13/20 13:52 93 20 166/93 98 Intake and Output 08/13/20 08/14/20 08/14/20 22:59 06:59 14:59 Output Total 6500 Balance -6500 Output: Hemodialysis 6500 Other: Weight 79.379 kg Results 08/14/20 04:29 08/14/20 04:29 Cardiac Enzymes 08/14/20 Range/Units 04:29 AST 15 (14-36) U/L CBC 08/14/20 Range/Units 04:29 WBC 3.9 (3.8-10.6) k/uL RBC 2.63 L (3.80-5.40) m/uL Hgb 8.2 L (11.4-16.0) gm/dL Hct 24.6 L (34.0-46.0) % Plt Count 133 L (150-450) k/uL Comprehensive Metabolic Panel 08/14/20 Range/Units 04:29 Sodium 135 L (137-145) mmol/L Potassium 5.1 (3.5-5.1) mmol/L Chloride 92 L (98-107) mmol/L Carbon Dioxide 30 (22-30) mmol/L BUN 36 H (7-17) mg/dL Creatinine 4.86 H (0.52-1.04) mg/dL Glucose 205 H (74-99) mg/dL Calcium 9.0 (8.4-10.2) mg/dL AST 15 (14-36) U/L ALT 6 (4-34) U/L Alkaline Phosphatase 115 (38-126) U/L Total Protein 6.3 (6.3-8.2) g/dL Albumin 3.5 (3.5-5.0) g/dL Current Medications Generic Name Dose Route Start Last Admin Trade Name Freq PRN Reason Stop Dose Admin Hydrocodone Bitart/Acetaminophen 1 each 08/13/20 17:30 08/14/20 11:58 Hydrocodone/Apap 7.5-325mg 1 Each Tab PO Not Given Q8H ANNI Albuterol Sulfate 2 puff 08/13/20 17:16 08/13/20 23:29 Albuterol Hfa Inhaler INHALATION 2 puff RT-Q6H PRN Administration Shortness Of Breath Ascorbic Acid 500 mg 08/14/20 05:30 08/14/20 06:25 Ascorbic Acid 500 Mg Tab PO 500 mg DAILY@0530 ANNI Administration Atorvastatin Calcium 40 mg 08/13/20 19:00 08/13/20 21:32 Atorvastatin 40 Mg Tab PO 40 mg HS@1900 ANNI Administration Benzonatate 100 mg 08/13/20 17:16 Benzonatate 100 Mg Cap PO TID PRN Cough Clonidine 0.3 mg 08/13/20 19:00 08/14/20 12:21 Clonidine Hcl 0.1 Mg Tab PO 0.3 mg TID@0530,1300,1900 ANNI Administration Diazepam 5 mg 08/13/20 21:00 08/14/20 11:57 Diazepam 5 Mg Tab PO 5 mg BID ANNI Administration Furosemide 40 mg 08/14/20 09:00 08/14/20 11:56 Furosemide 40 Mg Tab PO 40 mg DAILY ANNI Administration Gabapentin 100 mg 08/13/20 22:00 08/14/20 11:57 Gabapentin 100 Mg Cap PO 100 mg TID ANNI Administration Hydralazine HCl 100 mg 08/13/20 18:00 08/14/20 12:28 Hydralazine Hcl 50 Mg Tab PO 100 mg QID ANNI Administration Insulin Aspart 0 unit 08/14/20 12:30 08/14/20 12:21 Insulin Aspart (Novolog) 100 Unit/Ml Vial SQ 3 unit ACHS ANNI Administration Protocol Metoprolol Tartrate 50 mg 08/13/20 22:00 08/14/20 11:56 Metoprolol Tartrate 50 Mg Tab PO 50 mg TID ANNI Administration Montelukast Sodium 10 mg 08/13/20 19:00 08/13/20 21:32 Montelukast 10 Mg Tab PO 10 mg HS@1900 ANNI Administration Morphine Sulfate 2 mg 08/13/20 18:48 08/14/20 10:06 Morphine Sulfate 2 Mg/Ml Syringe IVP 2 mg Q4H PRN Administration Pain/Discomfort Naloxone HCl 0.2 mg 08/13/20 14:14 Naloxone 0.4 Mg/Ml 1 Ml Vial IV Q2M PRN Opioid Reversal Ondansetron HCl 4 mg 08/13/20 14:14 08/14/20 12:02 Ondansetron 4 Mg/2 Ml Vial IVP 4 mg Q8HR PRN Administration Nausea And Vomiting Pantoprazole Sodium 40 mg 08/14/20 07:30 08/14/20 11:56 Pantoprazole 40 Mg Tablet PO 40 mg DAILY@0730 ANNI Administration Prochlorperazine Maleate 5 mg 08/13/20 17:16 Prochlorperazine 5 Mg Tab PO BID PRN Nausea Rifampin 300 mg 08/13/20 19:00 08/14/20 11:57 Rifampin 300 Mg Cap PO 300 mg TID@0530,1300,1900 ANNI Administration Ropinirole HCl 1 mg 08/13/20 22:00 08/14/20 11:56 Ropinirole Hcl 1 Mg Tab PO 1 mg TID ANNI Administration Sildenafil Citrate 20 mg 08/13/20 19:00 08/14/20 11:57 Sildenafil 20 Mg Tab PO 20 mg TID@0530,1300,1900 ANNI Administration Tramadol HCl 50 mg 08/13/20 17:30 08/14/20 06:25 Tramadol 50 Mg Tab PO 50 mg Q12H ANNI Administration Intake and Output 08/13/20 08/14/20 08/14/20 22:59 06:59 14:59 Output Total 6500 Balance -6500 Output: Hemodialysis 6500 Other: Weight 79.379 kg Patient Weight 08/15/20 06:59 Weight 79.379 kg 08/14/20 04:29 08/14/20 04:29
--- NOTE | 2020-08-14 14:31 | PN ---
PROGRESS NOTE Sara Desouza is a 55-year-old white female. Hemoglobin is 8.2, white count 3.9, sodium 135, potassium 5.1, BUN 36, creatinine 4.86. Sugars are mid to 200s. The patient is in for fluid overload. We are going to get a consult with GI for possible ascites. Await for dialysis to be done again today for fluid overload. She is worried about her belly size and possibly having some ascites for which GI will have to address this. Will consult them and monitor her fluid overload with dialysis, which she is going to have again today. Vital signs are stable, afebrile. Pulse rate 100 to 110. O2 is 92 on room air. Blood pressure 1/20s to 160s over 60s to 70s. Temperature 97 to 98. CARDIOVASCULAR: S1, S2. LUNGS: Clear to auscultation. GI: Is distended, obesity, question of wave. HEMATOLOGY: Negative Homans. ASSESSMENT: 1. Possible ascites. 2. Fluid overload. 3. End-stage renal disease. 4. Recent endocarditis. Prognosis guarded. Rule out cirrhosis. Continue with frequent dialysis for fluid overload. Wait for renal physicians recommendations as well as GI. MMODL / IJN: [id number] /
[2020-08-14] MEDS: ALBUTEROL HFA INHALER INHALATION PRN ×2 (17:06→20:26)
[2020-08-14 17:08] LABS: Glucose,Whole Blood 199 mg/dL (75-99)
[2020-08-14 19:23] LABS: Glucose,Whole Blood 252 mg/dL (75-99)
[2020-08-14] MEDS: MONTELUKAST 10 MG TAB PO SCH (19:35)
[2020-08-14] MEDS: ATORVASTATIN 40 MG TAB PO SCH (19:35)
[2020-08-14] MEDS: BENZONATATE 100 MG CAP PO PRN (19:43)
--- NOTE | 2020-08-14 22:59 | CONS ---
CONSULTATION REASON FOR CONSULT: End-stage renal disease. HISTORY OF PRESENT ILLNESS: Patient is a 55-year-old female who was admitted to the hospital with complaints of shortness of breath. She has had issues with volume overload and patient stated that it had worsened. She did get dialyzed yesterday with UF of about 3 L and patient was dialyzed again this morning and we had about 3.5 L of fluid removed today. Patient denies any fever, chills, nausea, vomiting, abdominal pain or diarrhea. She states she has been compliant with salt and fluid restriction. PAST MEDICAL HISTORY: End-stage renal disease, CKD mineral bone disorder, history of mitral valve endocarditis, status post mitral valve replacement in March 2020 at [facility]. Patient also has a history of chronic liver disease and chronic ascites, history of pancreatitis, type 2 diabetes, hyperlipidemia, chronic anemia. PAST SURGICAL HISTORY: Recent mitral valve replacement in March 2020 for endocarditis, uterine ablation, liver biopsy, colonoscopy, polypectomy, bone marrow biopsies, multiple surgeries for hemodialysis access, left arm AV fistula currently. SOCIAL HISTORY: Negative for smoking, drug abuse or alcohol abuse. MEDICATIONS: Medications prior to admission included clonidine, Compazine, insulin, hydralazine, [place], Singulair, Revatio, Ultram, vitamin C, Lipitor, Lopressor, Neurontin, Flexeril, Lasix, Valium, Requip. ALLERGIES: ALLERGIES include ANESTHETICS, CIPRO, IV CONTRAST AGENTS. REVIEW OF SYSTEMS: As per HPI. Other systems negative. PHYSICAL EXAMINATION: Patient is comfortable, awake. She is not in any acute distress. Blood pressure this morning was 132/74, heart rate 110 per minute. She is afebrile. EXAMINATION OF THE HEART: S1 and S2. EXAMINATION OF LUNGS: Bilateral breath sounds are heard. Decreased breath sounds at bases. ABDOMEN: Soft, distended with ascites. Examination of lower extremities shows edema 2+ bilaterally. DIRECTOR OF ORTHOPEDICS exam is grossly intact. LABS: Hemoglobin 8.2, sodium 135, potassium 5.1, BUN 36, creatinine 4.86, albumin 3.5. ASSESSMENT: 1. End-stage renal disease, on hemodialysis on a Thursday, , Thursday schedule. 2. Fluid overload, status post about 6.5 L of ultrafiltration between yesterday and today. We will plan for dialysis again tomorrow, mostly for ultrafiltration. 3. Recent methicillin-resistant Staphylococcus aeruginosa endocarditis, status post mitral valve replacement in March 2020 at [facility]. 4. Chronic anemia with previous history of bone marrow biopsies. 5. Gastroesophageal reflux disease. 6. Type 2 diabetes. PLAN: Repeat dialysis in a.m., mostly ultrafiltration of about 3 L as tolerated. Maintain phosphate binders. Continue with salt and fluid restriction. MMODL / IJN: [id number] /
[2020-08-15] MEDS: HYDROcodone/APAP 7.5-325MG 1 EACH TAB PO SCH ×3 (03:12→17:55)
[2020-08-15] MEDS: ONDANSETRON 4 MG/2 ML VIAL IVP PRN ×2 (03:17→12:46)
[2020-08-15] MEDS: MORPHINE SULFATE 2 MG/ML SYRINGE IVP PRN ×4 (03:18→17:02)
[2020-08-15] MEDS: cloNIDine HCL 0.1 MG TAB PO SCH ×2 (06:22→12:46)
[2020-08-15] MEDS: ASCORBIC ACID 500 MG TAB PO SCH (06:22)
[2020-08-15] MEDS: traMADol 50 MG TAB PO SCH ×2 (06:22→17:01)
[2020-08-15] MEDS: SILDENAFIL 20 MG TAB PO SCH ×2 (06:22→15:46)
[2020-08-15] MEDS: rifAMPin 300 MG CAP PO SCH ×2 (06:22→15:46)
[2020-08-15 06:45] LABS: Glucose,Whole Blood 188 mg/dL (75-99)
[2020-08-15] MEDS: ALBUTEROL HFA INHALER INHALATION PRN ×2 (07:51→11:34)
[2020-08-15] MEDS: INSULIN ASPART (NovoLOG) 100 UNIT/ML VIAL SQ SCH ×2 (08:34→12:45)
[2020-08-15] MEDS: diazePAM 5 MG TAB PO SCH (08:35)
[2020-08-15] MEDS: BENZONATATE 100 MG CAP PO PRN (08:35)
[2020-08-15] MEDS: FUROSEMIDE 40 MG TAB PO SCH (08:36)
[2020-08-15] MEDS: hydrALAZINE HCL 50 MG TAB PO SCH ×2 (08:36→12:46)
[2020-08-15] MEDS: GABAPENTIN 100 MG CAP PO SCH ×2 (08:36→17:01)
[2020-08-15] MEDS: METOPROLOL TARTRATE 50 MG TAB PO SCH ×2 (08:43→17:01)
[2020-08-15] MEDS: PANTOPRAZOLE 40 MG TABLET PO SCH (08:45)
[2020-08-15 11:44] LABS: Glucose,Whole Blood 210 mg/dL (75-99)
[2020-08-15 14:11] VITALS: PULSE 93; TEMP 98.8
--- NOTE | 2020-08-15 14:19 | P.CONS ---
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 Patient currently follows up with nephrology and has hemodialysis 3 times weekly but presented due to concerns over lower extremity and abdominal distention. Patient recently underwent mitral valve replacement with a tissue valve in 03/30 at the [facility]. Previously she had been worked up at [facility] for possible kidney transplants but has currently established care with [facility]. The patient has been hospitalized previously for necrotizing pancreatitis. She also has a history of liver disease and it is unclear if this is secondary to alcohol use in the past as the patient reports is secondary to nonalcoholic fatty liver disease/nonalcoholic steatohepatitis. On current presentation she was found to have mild ascites. She is currently on Lasix 40 mg daily. She does report making a small amount of urine. Laboratory evaluation significant for hemoglobin 8.2, platelet count 133,000, total bilirubin 0.7, alkaline phosphatase is 115, AST 15 and ALT 6. Review of Systems REVIEW OF SYSTEMS: CONSTITUTIONAL: Denies any fevers, chills, or fatigue but does report small weight gain in association with her fluid overload. CARDIOVASCULAR: Denies any chest pain, palpitations high or low blood pressures RESPIRATORY: Denies any shortness of breath, hemoptysis or cough. GENITOURINARY: No dysuria or hematuria, patient is end-stage renal disease on hemodialysis but does make a small amounts of urine. MUSCULOSKELETAL: No weakness reported. SKIN: Denies any new rashes or lesions, jaundice or pallor. PSYCHIATRIC: Denies any depression or anxiety. NEUROLOGY: Denies headache, denies any new focal deficits. EARS/NOSE/THROAT: No recent hearing change, congestion, nasal discharge or sore throat. EYES: No pain in eyes, discharge or change in vision. GASTROINTESTINAL: As per HPI. Past Medical History Past Medical History: Blood Disorder, Heart Failure, Diabetes Mellitus, Dialysis, Hyperlipidemia, Hypertension, Liver Disease, Pneumonia, Renal Disease Additional Past Medical History / Comment(s): Pt recently admitted to [facility] on with fluid overload/swelling. Other hx: MRSA infection in blood with IV ABX while at dialysis until 09/06/20, bilateral cataracts, recently diagnosed with bilateral retinal hemorrhages, hypertriglyceridemia-induced acute pancreatitis, THEN necrotizing pancreatitis. hemodialysis for acute kidney injury 2 months in 2009 after pancreatic OR, 11/2015 diagnosed w/ chronic kidney disease-hemodialysis -last hemodialysis 06/02/19, IDDM type II, past DKA, UTI, chronic anemia, frequent body cramping, occasional low back pain, hoffman's palsy x2, past L leg fx, possible liver disease-recent liver bx-results unknown per pt. History of Any Multi-Drug Resistant Organisms: MRSA Year Discovered:: 06/10/20 MDRO Source:: Blood Past Surgical History: Cardiac Valve Replacement, Orthopedic Surgery, Uterine Ablation Additional Past Surgical History / Comment(s): Recent liver biopsy done at [facility] but pt states they have never contacted her with the results, 08/26/17 colonoscopy with polypectomy/bx, pancreatic resection at [facility] 2009, bone marrow biopsies X2-last one 05/19/16,. dialysis chest port x 2 with removals, Left arm shunt placement for dialysis - December 2015 and a revision done with shunt. Left forearm Vein Revision - October 2019 Past Anesthesia/Blood Transfusion Reactions: No Reported Reaction Additional Past Anesthesia/Blood Transfusion Reaction / Comm: Pt has received blood transfusions without reaction. Smoking Status: Never smoker - Past Family History Brother(s) Family Medical History: No Reported History Mother Family Medical History: Cancer Additional Family Medical History / Comment(s): . Father Family Medical History: Hypertension Additional Family Medical History / Comment(s): alcoholism Medications and Allergies Home Medications Medication Instructions Recorded Confirmed Type cloNIDine HCL [Catapres] 0.3 mg PO TID@0530,1300,1900 12/16/16 08/13/20 History Prochlorperazine [Compazine] 5 mg PO BID PRN 10/26/17 08/13/20 History INSULIN LISPRO (humaLOG) [humaLOG] 10 unit SQ AC-TID 07/12/18 08/13/20 History hydrALAZINE HCL [Apresoline] 100 mg PO QID 12/14/18 08/13/20 History HYDROcodone/APAP 7.5-325MG [[place] 1 tab PO Q8H 11/08/19 08/13/20 History 7.5-325] Montelukast [Singulair] 10 mg PO HS@1900 11/08/19 08/13/20 History Insulin Glargine,Hum.rec.anlog See Protocol SQ HS 12/02/19 08/13/20 History [Basaglar Kwikpen U-100] Albuterol Sulfate [Proair Hfa] 2 puff INHALATION RT-Q6H PRN 01/28/20 08/13/20 Hi story INSULIN LISPRO (HumaLOG) [humaLOG] See Protocol SQ ACHS 03/17/20 08/13/20 History Sildenafil [Revatio] 20 mg PO TID@0530,1300,1900 04/20/20 08/13/20 History traMADol HCL [Ultram] 50 mg PO Q12H 05/13/20 08/13/20 History Ascorbic Acid [Vitamin C] 500 mg PO DAILY@0530 07/09/20 08/13/20 History Atorvastatin [Lipitor] 40 mg PO HS@1900 07/09/20 08/13/20 History Metoprolol Tartrate [Lopressor] 50 mg PO TID 07/09/20 08/13/20 History rifAMPin [Rifampin] 300 mg PO TID@0530,1300,1900 07/09/20 08/13/20 History Gabapentin [Neurontin] 100 mg PO TID 08/02/20 08/13/20 History Omeprazole 20 mg PO BID 08/02/20 08/13/20 History Benzonatate [Tessalon Perles] 100 mg PO TID PRN 08/13/20 08/13/20 History Cyclobenzaprine [Flexeril] 5 mg PO HS 08/13/20 08/13/20 History Furosemide [Lasix] 40 mg PO DAILY 08/13/20 08/13/20 History diazePAM [Valium] 5 mg PO BID 08/13/20 08/13/20 History rOPINIRole HCL [Requip] 1 mg PO TID 08/13/20 08/13/20 History Allergies Allergy/AdvReac Type Severity Reaction Status Date / Time Anesthetics - Amide Type - Allergy Unknown Verified 08/13/20 12:22 Select A Anesthetics - Andree Type- Allergy Unknown Verified 08/13/20 12:22 Parabens ciprofloxacin [From Cipro] AdvReac AFFECTED Verified 08/13/20 12:22 EYESIGHT ciprofloxacin HCl AdvReac AFFECTED Verified 08/13/20 12:22 [From Cipro] EYESIGHT Iodinated Contrast Media AdvReac RENAL Verified 08/13/20 12:22 FAILURE Physical Exam Vitals: Vital Signs Temp Pulse Resp BP Pulse Ox 08/15/20 08:00 18 08/15/20 06:30 98.1 F 94 18 130/71 96 08/15/20 02:00 98.9 F 86 16 125/73 100 08/14/20 20:00 99.0 F 96 18 179/97 98 Intake and Output 08/14/20 08/15/20 08/15/20 22:59 06:59 14:59 Intake Total 240 Balance 240 Intake: Oral 240 Other: # Voids 1 On physical examination, patient appears comfortable in no apparent distress. HEAD: Normocephalic, atraumatic. EYES: No scleral icterus. No conjunctival injection. MOUTH: No lesions, tongue midline. NECK: Trachea midline, no gross abnormalities. CHEST: Decreased air entry in all lung jara. HEART: S1-S2 appreciated. ABDOMEN: Soft, mildly. Bowel sounds are positive. No organomegaly. No guarding or rigidity. EXTREMITIES: Bilateral pedal edema. SKIN: No rashes, no jaundice. NEUROLOGIC: Alert and oriented x3. No focal deficits. Results CBC & Chem 7: 08/14/20 04:29 08/14/20 04:29 Labs: Abnormal Lab Results - Last 24 Hours (Table) 08/14/20 08/14/20 08/15/20 Range/Units 17:07 19:22 06:34 POC Glucose (mg/dL) 199 H 252 H 188 H (75-99) mg/dL 08/15/20 Range/Units 11:37 POC Glucose (mg/dL) 210 H (75-99) mg/dL US - abdomen: report reviewed (Mild ascites noted on ultrasound the abdomen) Assessment and Plan (1) Ascites Narrative/Plan: 55-year-old female with multiple medical comorbidities presenting for fluid overload. Patient has end-stage renal disease on hemodialysis she also reports a small amount of urine and is on latest Lasix 40 mg daily. She does report one prior paracentesis. She has previously had evaluation at [facility] where she was also taking care of for necrotizing pancreatitis with partial pancreatectomy in the past. She also reports liver biopsy in the past and was told of fatty liver disease. He said his likely multifactorial secondary to end-stage renal disease, cannot rule out a component of chronic liver disease as the patient does report a known history of fatty liver disease, there is questionable history of alcohol use/abuse in the past with the patient is denying it at this time. Current Visit: No Status: Acute Code(s): R18.8 - OTHER ASCITES SNOMED Code(s): 450083270 (2) Chronic anemia Current Visit: No Status: Acute Code(s): D64.9 - ANEMIA, UNSPECIFIED SNOMED Code(s): 486674639 (3) Chronic liver disease Current Visit: Yes Status: Acute Code(s): K76.9 - LIVER DISEASE, UNSPECIFIED SNOMED Code(s): 086016602 Plan: Supportive care Okay for diet as tolerated Continue monitor CBC, BMP, LFTs Nephrology services currently following the patient and defer management of hemodialysis and direct therapy to their service Continue other medical management per consulting services and primary team If patient has enough fluid can consider paracentesis with fluid studies, otherwise continue hemodialysis and diuretic therapy for treatment Follow-up with [facility] after discharge for continued management and evaluation for possible kidney transplant Thank you for allowing us to participate in the care of the patient
[2020-08-15 14:47] VITALS: BP 102/56; RESP 16
--- NOTE | 2020-08-15 16:42 | PN ---
PROGRESS NOTE Ultrasound of her abdomen showed mild ascites. She is in for fluid overload. She was in with this a week or 2 ago. She went back to dialysis center. They did no adjustment to the fluids. She is now back in fluid overload in less than a week. She denies any fever or chills. Today, she has been compliant with salt and fluid restriction. VITAL SIGNS: Stable, afebrile. CARDIOVASCULAR: S1, S2. LUNGS: Clear. GI: Distended in her abdomen. PSYCH: Fair mood and affect. ASSESSMENT: 1. End-stage renal disease. 2. Fluid overload. 3. Recent MRSA. 4. Endocarditis. 5. Status post valve repair. 6. Chronic anemia. 7. Previous history of bone marrow biopsies. 8. Gastroesophageal reflux disease. 9. Type 2 diabetes mellitus. 10.Hypothyroidism. Do another dialysis today. Wait for end-stage renal disease physician to clear her for discharge. Prognosis guarded. MMODL / IJN: [id number] /
--- NOTE | 2020-08-15 20:07 | PN ---
PROGRESS NOTE Patient is seen for followup for end-stage renal disease. She is scheduled for hemodialysis today for extra ultrafiltration for volume overload and she will have her regular treatment tomorrow. At this time it is unclear if patient is having a paracentesis done. GI consult has been placed. Abdominal ultrasound showed only mild ascites. PHYSICAL EXAMINATION: Today blood pressure was 130/71, heart rate 94 per minute, patient is afebrile. She has 2+ edema lower extremities. Abdomen is distended with ascites. SPEAKING UNIT ASSEMBLER exam grossly intact. LAB: From August 14 show sodium 135, potassium 5.1, albumin 3.5, hemoglobin 8.2 g/dL. ASSESSMENT: 1. End-stage renal disease, on hemodialysis on a Thursday, , Thursday schedule, getting daily treatments mostly for fluid overload. 2. History of recent endocarditis, status post mitral valve replacement in March of 2020 with a bioprosthetic valve. 3. Chronic anemia with previous history of bone marrow biopsies. 4. Gastroesophageal reflux disease. 5. Type 2 diabetes. 6. Fluid overload. PLAN: We will plan for another 3-3.5 L today and patient will be dialyzed again with goal UF 3-4 L as tolerated. MMODL / IJN: [id number] /
== END 2020-08-15 18:29 ==
LOC: EC 10:03 → 1SOBS 14:14 → 6NMEDSUR 08-14 12:54
PROVIDERS: ADMIT Family Medicine; ATTEND Family Medicine
DX: I13.2 Hypertensive heart and chronic kidney disease with heart failure and with stage 5 chronic kidney disease, or end stage renal disease (principal); E11.22 Type 2 diabetes mellitus with diabetic chronic kidney disease; Z99.2 Dependence on renal dialysis; N18.6 End stage renal disease; I50.9 Heart failure, unspecified; M79.89 Other specified soft tissue disorders; G89.29 Other chronic pain; E78.5 Hyperlipidemia, unspecified; D64.9 Anemia, unspecified; M54.5 Low back pain; G51.0 Bell's palsy; E78.1 Pure hyperglyceridemia; E66.9 Obesity, unspecified; Z68.31 Body mass index [BMI] 31.0-31.9, adult; D61.818 Other pancytopenia; E87.1 Hypo-osmolality and hyponatremia; I27.20 Pulmonary hypertension, unspecified; I31.3 Pericardial effusion (noninflammatory); R18.8 Other ascites; I05.9 Rheumatic mitral valve disease, unspecified; M89.9 Disorder of bone, unspecified; K21.9 Gastro-esophageal reflux disease without esophagitis; E03.9 Hypothyroidism, unspecified; K75.81 Nonalcoholic steatohepatitis (NASH); Z79.4 Long term (current) use of insulin; Z79.899 Other long term (current) drug therapy; Z79.891 Long term (current) use of opiate analgesic; Z88.4 Allergy status to anesthetic agent; Z88.1 Allergy status to other antibiotic agents; Z91.041 Radiographic dye allergy status; Z90.411 Acquired partial absence of pancreas; Z95.2 Presence of prosthetic heart valve; Z87.01 Personal history of pneumonia (recurrent); Z86.19 Personal history of other infectious and parasitic diseases; Z87.440 Personal history of urinary (tract) infections; Z86.14 Personal history of Methicillin resistant Staphylococcus aureus infection; Z87.19 Personal history of other diseases of the digestive system; Z86.010 Personal history of colon polyps; Z95.828 Presence of other vascular implants and grafts; Z82.49 Family history of ischemic heart disease and other diseases of the circulatory system; Z81.1 Family history of alcohol abuse and dependence; Z80.9 Family history of malignant neoplasm, unspecified; Z20.822 Contact with and (suspected) exposure to COVID-19
CPT/HCPCS: 96376 ×4; 96374; 96375; 99285; 36415; 94640 ×5; 93005; 80053; 80048; 85025 ×2; 87635; 71045; 76705; G0378 ×4; J2270 ×4; J2405 ×3; 90935

== ENCOUNTER 2020-09-03 08:46 | Inpatient (IN) | payer OTHER ==
[2020-09-03] MEDS ORDERED: MORPHINE SULFATE 2 MG/ML SYRINGE IVP ONE (09:22)
[2020-09-03 09:41] LABS: Anisocytosis Slight; Basophils % (A) 1 %; Eosinophils # (A) 0.1 k/uL (0-0.7); Eosinophils % (A) 2 %; HCT 24.1 % (34.0-46.0); HGB 7.7 gm/dL (11.4-16.0); Hypochromasia Slight; Lymphocytes # (A) 0.2 k/uL (1.0-4.8); Lymphocytes % (A) 7 %; MCH 30.1 pg (25.0-35.0); MCHC 31.9 g/dL (31.0-37.0); MCV 94.3 fL (80.0-100.0); Macrocytosis Slight; Mean Platelet Volume 8.2; Monocytes # (A) 0.1 k/uL (0-1.0); Monocytes % (A) 5 %; Neutrophils # (A) 2.4 k/uL (1.3-7.7); Neutrophils % (A) 85 %; Platelet Count 107 k/uL (150-450); RBC 2.55 m/uL (3.80-5.40); RDW 18.1 % (11.5-15.5); WBC 2.8 k/uL (3.8-10.6)
[2020-09-03 09:51] LABS: Albumin 3.8 g/dL (3.5-5.0); Calcium 8.9 mg/dL (8.4-10.2); Potassium 5.5 mmol/L (3.5-5.1); Total Bilirubin 0.8 mg/dL (0.2-1.3); Total Protein 6.5 g/dL (6.3-8.2)
[2020-09-03 09:55] LABS: Partial Thromboplastin Time 24.4 sec (22.0-30.0); Prothrombin Time 10.9 sec (9.0-12.0)
--- NOTE | 2020-09-03 10:05 | ED ---
Extremity Problem HPI - General Chief complaint: Extremity Problem,Nontraumatic Stated complaint: Blood Clot in Arm Time Seen by Provider: 09/03/20 08:55 Source: patient, RN notes reviewed Mode of arrival: ambulatory Limitations: no limitations - History of Present Illness Initial comments: 55-year-old female presents emergency Department from vascular surgeon's office with chief complaint of left upper extremity DVT. Patient states that she's been having pain for a while. Patient went over for evaluation of her fistula, vein mapping and states that they found her DVT. Denies any chest pain or shortness breath. Patient is on dialysis through her catheter. Patient has not missed any days she states she was 2-Thursday. Patient states she does have leg edema, abdominal which is chronic. Patient was recently admitted. - Related Data Home Medications Medication Instructions Recorded Confirmed cloNIDine HCL [Catapres] 0.3 mg PO TID@0530,1300,1900 12/16/16 08/13/20 Prochlorperazine [Compazine] 5 mg PO BID PRN 10/26/17 08/13/20 INSULIN LISPRO (humaLOG) [humaLOG] 10 unit SQ AC-TID 07/12/18 08/13/20 hydrALAZINE HCL [Apresoline] 100 mg PO QID 12/14/18 08/13/20 HYDROcodone/APAP 7.5-325MG [[place] 1 tab PO Q8H 11/08/19 08/13/20 7.5-325] Montelukast [Singulair] 10 mg PO HS@1900 11/08/19 08/13/20 Insulin Glargine,Hum.rec.anlog See Protocol SQ HS 12/02/19 08/13/20 [Basaglar Kwikpen U-100] Albuterol Sulfate [Proair Hfa] 2 puff INHALATION RT-Q6H PRN 01/28/20 08/13/20 INSULIN LISPRO (HumaLOG) [humaLOG] See Protocol SQ ACHS 03/17/20 08/13/20 Sildenafil [Revatio] 20 mg PO TID@0530,1300,1900 04/20/20 08/13/20 traMADol HCL [Ultram] 50 mg PO Q12H 05/13/20 08/13/20 Ascorbic Acid [Vitamin C] 500 mg PO DAILY@0530 07/09/20 08/13/20 Atorvastatin [Lipitor] 40 mg PO HS@1900 07/09/20 08/13/20 Metoprolol Tartrate [Lopressor] 50 mg PO TID 07/09/20 08/13/20 rifAMPin [Rifampin] 300 mg PO TID@0530,1300,1900 07/09/20 08/13/20 Gabapentin [Neurontin] 100 mg PO TID 08/02/20 08/13/20 Omeprazole 20 mg PO BID 08/02/20 08/13/20 Benzonatate [Tessalon Perles] 100 mg PO TID PRN 08/13/20 08/13/20 Cyclobenzaprine [Flexeril] 5 mg PO HS 08/13/20 08/13/20 Furosemide [Lasix] 40 mg PO DAILY 08/13/20 08/13/20 diazePAM [Valium] 5 mg PO BID 08/13/20 08/13/20 rOPINIRole HCL [Requip] 1 mg PO TID 08/13/20 08/13/20 Allergies Allergy/AdvReac Type Severity Reaction Status Date / Time Anesthetics - Amide Type - Allergy Unknown Verified 09/03/20 08:52 Select A Anesthetics - Andree Type- Allergy Unknown Verified 09/03/20 08:52 Parabens ciprofloxacin [From Cipro] AdvReac AFFECTED Verified 09/03/20 08:52 EYESIGHT ciprofloxacin HCl AdvReac AFFECTED Verified 09/03/20 08:52 [From Cipro] EYESIGHT Iodinated Contrast Media AdvReac RENAL Verified 09/03/20 08:52 FAILURE Review of Systems ROS Statement: Those systems with pertinent positive or pertinent negative responses have been documented in the HPI. ROS Other: All systems not noted in ROS Statement are negative. Past Medical History Past Medical History: Blood Disorder, Heart Failure, Diabetes Mellitus, Dialysis, Hyperlipidemia, Hypertension, Liver Disease, Pneumonia, Renal Disease Additional Past Medical History / Comment(s): Pt recently admitted to [facility] on 08/02/20 with fluid overload/swelling. Other hx: MRSA infection in blood with IV ABX while at dialysis until 09/06/20, bilateral cataracts, recently diagnosed with bilateral retinal hemorrhages, hypertriglyceridemia-induced acute pancreatitis, THEN necrotizing pancreatitis. hemodialysis for acute kidney injury 2 months in 2009 after pancreatic OR, 11/2015 diagnosed w/ chronic kidney disease-hemodialysis TU/TH/SA-last hemodialysis 06/02/19, IDDM type II, past DKA, UTI, chronic anemia, frequent body cramping, occasional low back pain, carter's palsy x2, past L leg fx, possible liver disease-recent liver bx-results unknown per pt. History of Any Multi-Drug Resistant Organisms: MRSA Date of last positivie culture/infection: 06/10/20 MDRO Source:: Blood Past Surgical History: Cardiac Valve Replacement, Orthopedic Surgery, Uterine Ablation Additional Past Surgical History / Comment(s): 08/26/17 colonoscopy with polypectomy/bx, pancreatic resection at [facility] 2009, bone marrow biopsies X2-last one 05/19/16,. dialysis chest port x 2 with removals, Left arm shunt placement for dialysis - December 2015 and a revision done with shunt. Left forearm Vein Revision - October 2019, liver biopsy Past Anesthesia/Blood Transfusion Reactions: No Reported Reaction Additional Past Anesthesia/Blood Transfusion Reaction / Comment(s): Pt has received blood transfusions without reaction. Past Psychological History: No Psychological Hx Reported Smoking Status: Never smoker Past Alcohol Use History: None Reported Past Drug Use History: None Reported - Past Family History Brother(s) Family Medical History: No Reported History Mother Family Medical History: Cancer Additional Family Medical History / Comment(s): . Father Family Medical History: Hypertension Additional Family Medical History / Comment(s): alcoholism General Exam Limitations: no limitations General appearance: alert, in no apparent distress Head exam: Present: atraumatic, normocephalic, normal inspection Eye exam: Present: normal appearance, PERRL, EOMI. Absent: scleral icterus, conjunctival injection, periorbital swelling Neck exam: Present: normal inspection. Absent: tenderness, meningismus, lym phadenopathy Respiratory exam: Present: normal lung sounds bilaterally. Absent: respiratory distress, wheezes, rales, rhonchi, stridor Cardiovascular Exam: Present: regular rate, normal rhythm, normal heart sounds. Absent: systolic murmur, diastolic murmur, rubs, gallop, clicks GI/Abdominal exam: Present: soft, distended. Absent: tenderness, guarding, rebound, rigid Extremities exam: Present: pedal edema, other (Fistula left upper arm noted pulses are palpable of the upper extremities) Course Vital Signs 09/03/20 08:48 Temperature 97.5 F L Pulse Rate 98 Respiratory 18 Rate Blood Pressure 207/108 O2 Sat by Pulse 100 Oximetry Medical Decision Making - Medical Decision Making 55-year-old presented for blood clot a left upper extremity ultrasound shows evidence of left cephalic vein thrombus. Patient will be admitted to Dr. Hall consult to vascular and nephrology as she needs dialysis. - Lab Data Result diagrams: 09/03/20 09:29 09/03/20 09:29 Lab Results 09/03/20 09/03/20 09/03/20 Range/Units 09:29 09:29 09:29 WBC 2.8 L (3.8-10.6) k/uL RBC 2.55 L (3.80-5.40) m/uL Hgb 7.7 L (11.4-16.0) gm/dL Hct 24.1 L (34.0-46.0) % MCV 94.3 (80.0-100.0) fL MCH 30.1 (25.0-35.0) pg MCHC 31.9 (31.0-37.0) g/dL RDW 18.1 H (11.5-15.5) % Plt Count 107 L (150-450) k/uL MPV 8.2 Neutrophils % 85 % Lymphocytes % 7 % Monocytes % 5 % Eosinophils % 2 % Basophils % 1 % Neutrophils # 2.4 (1.3-7.7) k/uL Lymphocytes # 0.2 L (1.0-4.8) k/uL Monocytes # 0.1 (0-1.0) k/uL Eosinophils # 0.1 (0-0.7) k/uL Basophils # 0.0 (0-0.2) k/uL Hypochromasia Slight Anisocytosis Slight Macrocytosis Slight PT 10.9 (9.0-12.0) sec INR 1.0 (<1.2) APTT 24.4 (22.0-30.0) sec Sodium 136 L (137-145) mmol/L Potassium 5.5 H (3.5-5.1) mmol/L Chloride 95 L (98-107) mmol/L Carbon Dioxide 31 H (22-30) mmol/L Anion Gap 10 mmol/L BUN 53 H (7-17) mg/dL Creatinine 5.44 H (0.52-1.04) mg/dL Est GFR (CKD-EPI)AfAm 10 (>60 ml/min/1.73 sqM) Est GFR (CKD-EPI)NonAf 8 (>60 ml/min/1.73 sqM) Glucose 140 H (74-99) mg/dL Calcium 8.9 (8.4-10.2) mg/dL Total Bilirubin 0.8 (0.2-1.3) mg/dL AST 21 (14-36) U/L ALT 8 (4-34) U/L Alkaline Phosphatase 110 (38-126) U/L Total Protein 6.5 (6.3-8.2) g/dL Albumin 3.8 (3.5-5.0) g/dL Disposition Clinical Impression: Left upper extremity deep vein thrombosis, Chronic kidney disease with end stage renal failure on dialysis Disposition: ADMITTED IP TO THIS [facility] Condition: Fair Referrals: David Bragg MD [Primary Care Provider] - 1-2 days
[2020-09-03] MEDS ORDERED: NALOXONE 0.4 MG/ML 1 ML VIAL IV PRN (10:41)
[2020-09-03] MEDS ORDERED: ACETAMINOPHEN TAB 325 MG TAB PO PRN (10:41)
[2020-09-03] MEDS ORDERED: PROCHLORPERAZINE 5 MG TAB PO PRN (10:43)
[2020-09-03] MEDS ORDERED: HEPARIN SODIUM 1,000 UN/ML (10ML VL) IV ONE (10:44)
[2020-09-03] MEDS: HEPARIN SOD,PORK IN 0.45% NACL 25,000 UNIT in 0.45% NACL 1 250ML.BAG IV SCH (11:10)
[2020-09-03] MEDS: HYDROcodone/APAP 7.5-325MG 1 EACH TAB PO SCH (11:30)
[2020-09-03 12:27] LABS: Glucose,Whole Blood 112 mg/dL (75-99)
[2020-09-03] MEDS: INSULIN ASPART (NovoLOG) 100 UNIT/ML VIAL SQ SCH ×3 (12:34→21:20)
[2020-09-03] MEDS: traMADol 50 MG TAB PO SCH ×2 (12:36→21:16)
[2020-09-03] MEDS: ONDANSETRON 4 MG/2 ML VIAL IVP PRN (12:46)
--- NOTE | 2020-09-03 14:03 | P.GSCN ---
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 The patient had a reported left upper extremity blood clot, hence was sent to the emergency department for treatment. Patient currently follows up with nephrology and has hemodialysis 3 times weekly. Patient recently underwent mitral valve r eplacement with a tissue valve in 03/30 at the [facility]. 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 At that time she had MRSA bacteremia from her perma cath and was transferred to [facility]. Previously she had been worked up at [facility] for possible kidney transplants but has currently established care with [facility]. The patient has been hospitalized previously for necrotizing pancreatitis. She also has a history of liver disease and it is unclear if this is secondary to alcohol use in the past as the patient reports is secondary to nonalcoholic fatty liver disease/nonalcoholic steatohepatitis. Review of Systems A 14 point review of systems was completed all pertinent positives and negatives as stated in the HPI Past Medical History Past Medical History: Blood Disorder, Heart Failure, Diabetes Mellitus, Dialysis, Hyperlipidemia, Hypertension, Liver Disease, Pneumonia, Renal Disease Additional Past Medical History / Comment(s): Pt recently admitted to [facility] on 08/02/20 with fluid overload/swelling. Other hx: MRSA infection in blood with IV ABX while at dialysis until 09/06/20, bilateral cataracts, recently diagnosed with bilateral retinal hemorrhages, hypertriglyceridemia-induced acute pancreatitis, THEN necrotizing pancreatitis. hemodialysis for acute kidney injury 2 months in 2009 after pancreatic OR, 11/2015 diagnosed w/ chronic kidney disease-hemodialysis /-last hemodialysis 06/02/19, IDDM type II, past DKA, UTI, chronic anemia, frequent body cramping, occasional low back pain, hoffman's palsy x2, past L leg fx, possible liver disease-recent liver bx-results unknown per pt. History of Any Multi-Drug Resistant Organisms: MRSA Year Discovered:: 06/10/20 MDRO Source:: Blood Past Surgical History: Cardiac Valve Replacement, Orthopedic Surgery, Uterine Ablation Additional Past Surgical History / Comment(s): 08/26/17 colonoscopy with polypectomy/bx, pancreatic resection at [facility] 2009, bone marrow biopsies X2-last one 05/19/16,. dialysis chest port x 2 with removals, Left arm shunt placement for dialysis - December 2015 and a revision done with shunt. Left forearm Vein Revision - October 2019, liver biopsy Past Anesthesia/Blood Transfusion Reactions: No Reported Reaction Additional Past Anesthesia/Blood Transfusion Reaction / Comm: Pt has received blood transfusions without reaction. Past Psychological History: No Psychological Hx Reported Smoking Status: Never smoker Past Alcohol Use History: None Reported Past Drug Use History: None Reported - Past Family History Brother(s) Family Medical History: No Reported History Mother Family Medical History: Cancer Additional Family Medical History / Comment(s): . Father Family Medical History: Hypertension Additional Family Medical History / Comment(s): alcoholism Medications and Allergies Home Medications Medication Instructions Recorded Confirmed Type cloNIDine HCL [Catapres] 0.3 mg PO TID@0530,1300,1900 12/16/16 09/03/20 History Prochlorperazine [Compazine] 5 mg PO BID PRN 10/26/17 09/03/20 History INSULIN LISPRO (humaLOG) [humaLOG] 10 unit SQ AC-TID 07/12/18 09/03/20 History hydrALAZINE HCL [Apresoline] 100 mg PO QID 12/14/18 09/03/20 History HYDROcodone/APAP 7.5-325MG [[place] 1 tab PO Q8H 11/08/19 09/03/20 History 7.5-325] Montelukast [Singulair] 10 mg PO HS@1900 11/08/19 09/03/20 History Insulin Glargine,Hum.rec.anlog See Protocol SQ HS 12/02/19 09/03/20 History [Basaglar Kwikpen U-100] Albuterol Sulfate [Proair Hfa] 2 puff INHALATION RT-Q6H PRN 01/28/20 09/03/20 History INSULIN LISPRO (HumaLOG) [humaLOG] See Protocol SQ ACHS 03/17/20 09/03/20 History Sildenafil [Revatio] 20 mg PO TID@0530,1300,1900 04/20/20 09/03/20 History traMADol HCL [Ultram] 50 mg PO Q12H PRN 05/13/20 09/03/20 History Ascorbic Acid [Vitamin C] 500 mg PO DAILY@0530 07/09/20 09/03/20 History Atorvastatin [Lipitor] 40 mg PO HS@1900 07/09/20 09/03/20 History Metoprolol Tartrate [Lopressor] 50 mg PO TID 07/09/20 09/03/20 History rifAMPin [Rifampin] 300 mg PO TID@0530,1300,1900 07/09/20 09/03/20 History Gabapentin [Neurontin] 100 mg PO TID 08/02/20 09/03/20 History Omeprazole 20 mg PO BID 08/02/20 09/03/20 History Benzonatate [Tessalon Perles] 100 mg PO TID PRN 08/13/20 09/03/20 History Cyclobenzaprine [Flexeril] 5 mg PO HS 08/13/20 09/03/20 History Furosemide [Lasix] 40 mg PO DAILY 08/13/20 09/03/20 History diazePAM [Valium] 5 mg PO BID 08/13/20 09/03/20 History rOPINIRole HCL [Requip] 1 mg PO TID 08/13/20 09/03/20 History Allergies Allergy/AdvReac Type Severity Reaction Status Date / Time Anesthetics - Amide Type - Allergy Unknown Verified 09/03/20 10:59 Select A Anesthetics - Andree Type- Allergy Unknown Verified 09/03/20 10:59 Parabens ciprofloxacin [From Cipro] AdvReac AFFECTED Verified 09/03/20 10:59 EYESIGHT ciprofloxacin HCl AdvReac AFFECTED Verified 09/03/20 10:59 [From Cipro] EYESIGHT Iodinated Contrast Media AdvReac RENAL Verified 09/03/20 10:59 FAILURE Surgical - Exam Vital Signs Temp Pulse Resp BP Pulse Ox 97.5 F L 98 18 207/108 100 09/03/20 08:48 09/03/20 08:48 09/03/20 08:48 09/03/20 08:48 09/03/20 08:48 General appearance: The patient is alert, oriented, in no acute distress. HET: Head is normocephalic and atraumatic. Neck: Supple without lymphadenopathy. Trachea midline. Heart: S1 S2. Regular rate and rhythm. Lungs: Her to auscultation No crackles or wheezes are heard. Abdomen: Soft, nontender, distended with bowel sounds. No peritoneal signs. N o palpable organomegaly or masses. Extremities: Normal skin color and turgor. Bilateral +1-2 lower extremity pitting edema. Palpable bilateral radial pulses, palpable bilateral dorsalis pedis pulses. Left upper extremity without any signs of swelling, has full range of motion, previous graft noted without any palpable thrills or audible bruit. The upper extremity without any swelling, has full range of motion. Neurological: No focal deficits. Strength and sensation are grossly intact. Results Preliminary upper extremity ultrasound done at outside location showing an occluded left brachial to cephalic vein fistula, complete occlusion in the left cephalic vein. Right cephalic vein thrombosis. - Labs 09/03/20 09:29 09/03/20 09:29 Abnormal Lab Results - Last 24 Hours (Table) 09/03/20 09/03/20 09/03/20 Range/Units 09:29 09:29 12:26 WBC 2.8 L (3.8-10.6) k/uL RBC 2.55 L (3.80-5.40) m/uL Hgb 7.7 L (11.4-16.0) gm/dL Hct 24.1 L (34.0-46.0) % RDW 18.1 H (11.5-15.5) % Plt Count 107 L (150-450) k/uL Lymphocytes # 0.2 L (1.0-4.8) k/uL Sodium 136 L (137-145) mmol/L Potassium 5.5 H (3.5-5.1) mmol/L Chloride 95 L (98-107) mmol/L Carbon Dioxide 31 H (22-30) mmol/L BUN 53 H (7-17) mg/dL Creatinine 5.44 H (0.52-1.04) mg/dL Glucose 140 H (74-99) mg/dL POC Glucose (mg/dL) 112 H (75-99) mg/dL Diabetes panel 09/03/20 Range/Units 09:29 Sodium 136 L (137-145) mmol/L Potassium 5.5 H (3.5-5.1) mmol/L Chloride 95 L (98-107) mmol/L Carbon Dioxide 31 H (22-30) mmol/L BUN 53 H (7-17) mg/dL Creatinine 5.44 H (0.52-1.04) mg/dL Glucose 140 H (74-99) mg/dL Calcium 8.9 (8.4-10.2) mg/dL AST 21 (14-36) U/L ALT 8 (4-34) U/L Alkaline Phosphatase 110 (38-126) U/L Total Protein 6.5 (6.3-8.2) g/dL Albumin 3.8 (3.5-5.0) g/dL Calcium panel 09/03/20 Range/Units 09:29 Calcium 8.9 (8.4-10.2) mg/dL Albumin 3.8 (3.5-5.0) g/dL Pituitary panel 09/03/20 Range/Units 09:29 Sodium 136 L (137-145) mmol/L Potassium 5.5 H (3.5-5.1) mmol/L Chloride 95 L (98-107) mmol/L Carbon Dioxide 31 H (22-30) mmol/L BUN 53 H (7-17) mg/dL Creatinine 5.44 H (0.52-1.04) mg/dL Glucose 140 H (74-99) mg/dL Calcium 8.9 (8.4-10.2) mg/dL Adrenal panel 09/03/20 Range/Units 09:29 Sodium 136 L (137-145) mmol/L Potassium 5.5 H (3.5-5.1) mmol/L Chloride 95 L (98-107) mmol/L Carbon Dioxide 31 H (22-30) mmol/L BUN 53 H (7-17) mg/dL Creatinine 5.44 H (0.52-1.04) mg/dL Glucose 140 H (74-99) mg/dL Calcium 8.9 (8.4-10.2) mg/dL Total Bilirubin 0.8 (0.2-1.3) mg/dL AST 21 (14-36) U/L ALT 8 (4-34) U/L Alkaline Phosphatase 110 (38-126) U/L Total Protein 6.5 (6.3-8.2) g/dL Albumin 3.8 (3.5-5.0) g/dL Assessment and Plan Assessment: 1. Left upper extremity occluded brachial to cephalic vein fistula. Complete occlusion of the left cephalic vein 2. End-stage renal disease on hemodialysis 3. Hypertension 4. Hyperlipidemia 5. History of infective endocarditis 6. History of mitral valve replacement Plan: 1. Continue IV heparin drip for now 2. Elevate left upper extremity on pillow 3. Continue other medical management per primary medicine team Thank you for this consultation, further recommendations forthcoming The above dictated assessment and findings were discussed with Dr. Rey. The impression and plan of care have been directed as dictated.
[2020-09-03] MEDS: hydrALAZINE HCL 50 MG TAB PO SCH ×3 (14:31→21:20)
[2020-09-03] MEDS: cloNIDine HCL 0.1 MG TAB PO SCH ×2 (14:31→19:10)
[2020-09-03] MEDS: SILDENAFIL 20 MG TAB PO SCH ×2 (14:32→19:10)
[2020-09-03] MEDS: rifAMPin 300 MG CAP PO SCH ×2 (14:32→19:11)
[2020-09-03] MEDS: ALBUTEROL HFA INHALER INHALATION PRN (15:07)
[2020-09-03] MEDS ORDERED: MORPHINE SULFATE 2 MG/ML SYRINGE IVP PRN (16:02)
[2020-09-03] MEDS: METOPROLOL TARTRATE 50 MG TAB PO SCH ×2 (16:21→21:22)
[2020-09-03] MEDS: GABAPENTIN 100 MG CAP PO SCH ×2 (16:21→21:20)
[2020-09-03 17:04] LABS: Glucose,Whole Blood 225 mg/dL (75-99)
[2020-09-03] MEDS: PANTOPRAZOLE 40 MG TABLET PO SCH (17:22)
--- NOTE | 2020-09-03 18:32 | HP ---
HISTORY AND PHYSICAL This is a 55-year-old white female with fluid overload who came to the hospital with increased fluid overload, shortness of breath, and investigation for possible new port placement on the left arm. She was found to have a blood clot in her left arm, at which time she was admitted for IV heparin. She has a history of TK with endocarditis; surgery was done. She is short of breath and in a lot of pain. She is requesting pain medications. REVIEW OF SYSTEMS: Fourteen-point review of systems otherwise negative. MEDICAL HISTORY: Heart failure, diabetes mellitus, end-stage renal disease, dyslipidemia, endocarditis, renal disease, necrotizing pancreatitis, hypercholesterolemia, coronary artery disease. PAST SURGICAL HISTORY: Cardiac valve surgery, orthopedic surgery, uterine ablation, bone marrow biopsies. MEDICATIONS: 1. Requip 1 mg t.i.d. 2. Valium 5 b.i.d. 3. Lasix 40 daily. 4. Flexeril 5 at bedtime. 5. Tessalon Perles 100 t.i.d. 6. Omeprazole 20 b.i.d. 7. Neurontin 100 t.i.d. 8. Rifampin 300 mg t.i.d. 9. Tramadol 50 q.12. 10.Lipitor 40 at bedtime. 11.Renvela 20 mg t.i.d. 12.ProAir HFA 2 puffs q.6 p.r.n. 13.Singulair 10 mg daily. 14.Basaglar. Please see orders. 15.Catapres 0.3 t.i.d. ALLERGIES: ANESTHESIA, CIPRO, CONTRAST MEDIA. PHYSICAL EXAMINATION: Blood pressure 207/108 in the ER, pulse ox 100%, temperature 97.8, pulse 85. CARDIOVASCULAR: S1, S2. LUNGS: Clear. NECK: Supple. No mass. HEENT: Normocephalic, atraumatic. PSYCH: Fair mood and affect. NEUROLOGIC: Cranial nerves are intact. EXTREMITIES HEMATOLOGY: Normal skin turgor, 1 to 2+ pitting edema. Previous graft noted in her left arm with some bulging in the biceps area. She has minimal swelling in the left arm. Pulses are intact. Neurologically intact. LABS: Labs are reviewed. Sodium 136, potassium 5.3, BUN 53, creatinine 5.44. Albumin 3.8. ASSESSMENT: 1. Left upper extremity occluded brachial to cephalic vein fistula. 2. Complete occlusion of the left cephalic vein. 3. End-stage renal disease, on dialysis. 4. Hypertension. 5. Dyslipidemia. 6. History of endocarditis and mitral valve replacement. She is on IV heparin. Elevate left arm. Medical management. Dialysis. Wait for further orders from vascular surgeon. MARIANNE / ILDIA: [id number] /
[2020-09-03] MEDS: MONTELUKAST 10 MG TAB PO SCH (19:09)
[2020-09-03] MEDS: ATORVASTATIN 40 MG TAB PO SCH (19:09)
[2020-09-03] MEDS: HEPARIN SODIUM 1,000 UN/ML (10ML VL) IV PRN (19:11)
[2020-09-03] MEDS: MORPHINE SULFATE 2 MG/ML SYRINGE IVP PRN (20:34)
[2020-09-03] MEDS ORDERED: CYCLOBENZAPRINE 5 MG TAB PO SCH (21:00)
[2020-09-03 21:02] LABS: Glucose,Whole Blood 207 mg/dL (75-99)
[2020-09-03] MEDS: diazePAM 5 MG TAB PO SCH (21:16)
[2020-09-04] MEDS: ONDANSETRON 4 MG/2 ML VIAL IVP PRN ×2 (00:33→19:24)
[2020-09-04] MEDS: MORPHINE SULFATE 2 MG/ML SYRINGE IVP PRN ×4 (00:39→20:27)
[2020-09-04] MEDS: HYDROcodone/APAP 7.5-325MG 1 EACH TAB PO SCH ×3 (02:56→17:37)
[2020-09-04] MEDS: HEPARIN SOD,PORK IN 0.45% NACL 25,000 UNIT in 0.45% NACL 1 250ML.BAG IV SCH (03:00)
[2020-09-04] MEDS: rifAMPin 300 MG CAP PO SCH ×3 (05:38→17:36)
[2020-09-04] MEDS: SILDENAFIL 20 MG TAB PO SCH ×3 (05:38→17:37)
[2020-09-04] MEDS: cloNIDine HCL 0.1 MG TAB PO SCH ×3 (05:56→17:35)
[2020-09-04 07:19] LABS: ALT 30 U/L (4-34); AST 83 U/L (14-36); African American GFR (CKD) 8 (>60 ml/min/1.73 sqM); Albumin 3.9 g/dL (3.5-5.0); Albumin/Globulin Ratio 1.3; Alkaline Phosphatase 113 U/L (38-126); Anion Gap 17 mmol/L; Blood Urea Nitrogen 68 mg/dL (7-17); Calcium 8.6 mg/dL (8.4-10.2); Carbon Dioxide 25 mmol/L (22-30); Chloride 94 mmol/L (98-107); Glucose 119 mg/dL (74-99); Non-African American GFR(CKD) 7 (>60 ml/min/1.73 sqM); Sodium 136 mmol/L (137-145); Total Bilirubin 1.4 mg/dL (0.2-1.3); Total Protein 6.9 g/dL (6.3-8.2)
[2020-09-04] MEDS: ALBUTEROL HFA INHALER INHALATION PRN ×3 (07:30→16:37)
[2020-09-04 07:53] LABS: Potassium 7.5 mmol/L (3.5-5.1)
[2020-09-04] MEDS: HEPARIN SODIUM 1,000 UN/ML (10ML VL) IV PRN (08:01)
[2020-09-04] MEDS: INSULIN ASPART (NovoLOG) 100 UNIT/ML VIAL SQ SCH ×4 (08:10→21:21)
[2020-09-04 08:17] LABS: Glucose,Whole Blood 157 mg/dL (75-99)
[2020-09-04 08:19] LABS: Glucose,Whole Blood 125 mg/dL (75-99)
[2020-09-04] MEDS ORDERED: CALCIUM GLUCONATE 1 GM in SODIUM CHLORIDE 0.9% 100 ML IVPB ONE (08:30)
[2020-09-04 10:27] LABS: Basophils # (A) 0.02 X 10*3/uL (0.00-0.10); Basophils % (A) 0.3 %; Eosinophils # (A) 0.03 X 10*3/uL (0.04-0.35); Eosinophils % (A) 0.5 %; HCT 26.6 % (37.2-46.3); HGB 7.9 g/dL (12.0-15.0); Lymphocytes # (A) 0.42 X 10*3/uL (0.90-5.00); Lymphocytes % (A) 7.1 %; MCHC 29.7 g/dL (32.0-37.0); MCV 101.1 fL (80.0-97.0); Mean Platelet Volume 10.2 fL (9.5-12.2); Monocytes % (A) 6.8 %; Neutrophils # (A) 4.94 X 10*3/uL (1.80-7.70); Neutrophils % (A) 83.8 %; Platelet Count 134 X 10*3/uL (140-440); RBC 2.63 X 10*6/uL (4.10-5.20); RDW 18.1 % (11.5-14.5)
[2020-09-04 11:19] LABS: Glucose,Whole Blood 115 mg/dL (75-99)
--- NOTE | 2020-09-04 11:20 | CDI ---
Documentation Clarification Form Date: 09/04/2020 11:09:16 AM From: Miladis Urbano CCS, CCDS Admit Date: 09/03/2020 11:28:00 AM Patient Name: Sara Desouza Visit Number: [id number] Discharge Date: ATTENTION: The Clinical Documentation Specialists (CDI) and [facility] Coding Staff appreciate your assistance in clarifying documentation. Please respond to the clarification below the line at the bottom and electronically sign. The CDI & [facility] Coding staff will review the response and follow-up if needed. Please note: Queries are made part of the Legal Health Record. If you have any questions, please contact the author of this message via ITS. Dr. David Bragg: Your patient has the documented diagnosis of unspecified CHF per the 09/03 ED Note and the patient's Past Medical history in the 09/03 Vascular Surgeon's Consult and the 09/03 History & Physical. Additional information regarding the type & acuity of CHF is requested. History/Risk Factors per the 09/03 ED Note Past Medical History: Heart Failure, Diabetes Mellitus, ESRD on Dialysis, Hyperlipidemia, Hypertension, PÉREZ, Pneumonia, Admit 08/02/20 with fluid overload & swelling, MRSA infection in blood with IV ABX while at dialysis until 09/06/20, bilateral cataracts, Bilateral retinal hemorrhages, Hypertriglyceridemia-induced acute pancreatitis, Necrotizing pancreatitis. UTI, Chronic anemia, Hoffman's Palsy x2, Clinical Indicators: Presented to the ED on 09/03 from Vascular Surgeon's office with a LUE DVT and pain. Admitted with same. VS 09/03: T 97.5, P 98 - 102, R 18, BP 207/108, PO 100 RA, BMI: 32.2 LAB 09/03: WBC 2.8, RBC2.55, Hgb 7.7, Hct 24.1, Pl Ct 107, Lymph 0.2; Na 136, K 5.5, Cl 95, CO2 31, BUN 53, Cr 5.44, Gluc 140 BNP: not done Echocardiogram Results (Most recent 05/14/2020): Moderate LVH, Left ventricular systolic function low normal w/EF 50-55%, Severe aortic valve sclerosis, no stenosis, Bioprosthetic Mitral Valve, Severe TR, Severe Pulmonary Hypertension. Chest X Ray: Not done Treatment: po Home Dose Lasix 40 mg daily. IV Morphine 2mg x1, IV Zofran, INH Ventolin, Heparin Drip. In your professional opinion, can you please clarify the acuity and type of CHF if known? [ ] Acute Systolic Heart Failure (reduced EF) [ ] Chronic Systolic Heart Failure (reduced EF) [ ] Acute on Chronic Systolic Heart Failure (reduced EF) [ ] Acute Diastolic Heart Failure (preserved EF) [ ] Chronic Diastolic Heart Failure (preserved EF) [ ] Acute on Chronic Diastolic Heart Failure (preserved EF) [ ] Acute Systolic & Diastolic Heart Failure [ ] Chronic Systolic & Diastolic Heart Failure [ ] Acute on Chronic Heart Failure Systolic & Diastolic Heart Failure [ ] Other, please specify [ ] Unable to determine (Template Last Revised: June 2020) MTDD
--- NOTE | 2020-09-04 11:23 | P.PN ---
Subjective Progress Note Date: 09/04/20 Principal diagnosis: Occluded fistula left upper extremity Seen and examined sitting up in bed. She is currently getting hemodialysis as she had elevated potassium today of 7.2. No acute changes through the night. She does state that she still has some discomfort that is in her left shoulder region. She has no difficulty with range of motion, numbness or tingling in her hand or fingers. Previous chest x-ray reviewed from 08/[address] Rey, left subclavian stent present. Objective - Vital Signs Vital signs: Vital Signs Temp 98 F 09/04/20 07:50 Pulse 92 09/04/20 07:50 Resp 16 09/04/20 07:50 BP 153/79 09/04/20 07:50 Pulse Ox 94 L 09/04/20 07:50 Intake & Output 09/03/20 09/04/20 09/04/20 18:59 06:59 18:59 Intake Total 115.413 133.299 379.931 Balance 115.413 133.299 379.931 Weight 82.554 kg Intake: Intake, IV Titration 115.413 133.299 83.931 Amount Heparin Sod,Pork in 0.45% 115.413 133.299 83.931 NaCl 25,000 unit In 0.45 % NaCl 1 250ml.bag @ 18 UNITS/KG/HR 14.86 mls/hr IV .[id number] [facility] Rx#: [id number] Oral 296 Other: Voiding Method Toilet # Voids 0 - Exam General appearance: The patient is alert, oriented, in no acute distress. HET: Head is normocephalic and atraumatic. Neck: Supple without lymphadenopathy. Trachea midline. Extremities: Normal skin color and turgor. No cyanosis, rash, ulceration, clubbing, or edema. Palpable +2 radial pulses bilaterally, full range of motion of bilateral upper extremities. There is a palpable firm area in her left scapula region, likely stent as seen on xray. Neurological: No focal deficits. Strength and sensation are grossly intact. - Labs CBC & Chem 7: 09/04/20 05:53 09/04/20 05:53 Labs: Abnormal Lab Results - Last 24 Hours (Table) 09/03/20 09/03/20 09/03/20 Range/Units 12:26 17:02 17:32 RBC (4.10-5.20) X 10*6/uL Hgb (12.0-15.0) g/dL Hct (37.2-46.3) % MCV (80.0-97.0) fL MCHC (32.0-37.0) g/dL RDW (11.5-14.5) % Plt Count (140-440) X 10*3/uL Absolute Nucleated RBC (0.00-0.00) X 10*3/uL Immature Gran # (0.00-0.04) X 10*3/uL Lymphocytes # (0.90-5.00) X 10*3/uL Eosinophils # (0.04-0.35) X 10*3/uL NRBC/100 WBC Diff (0.0-0.0) /100 WBCS APTT 33.8 H (22.0-30.0) sec Sodium (137-145) mmol/L Potassium (3.5-5.1) mmol/L Chloride (98-107) mmol/L BUN (7-17) mg/dL Creatinine (0.52-1.04) mg/dL Glucose (74-99) mg/dL POC Glucose (mg/dL) 112 H 225 H (75-99) mg/dL Total Bilirubin (0.2-1.3) mg/dL AST (14-36) U/L 09/03/20 09/03/20 09/04/20 Range/Units 21:00 22:57 03:54 RBC (4.10-5.20) X 10*6/uL Hgb (12.0-15.0) g/dL Hct (37.2-46.3) % MCV (80.0-97.0) fL MCHC (32.0-37.0) g/dL RDW (11.5-14.5) % Plt Count (140-440) X 10*3/uL Absolute Nucleated RBC (0.00-0.00) X 10*3/uL Immature Gran # (0.00-0.04) X 10*3/uL Lymphocytes # (0.90-5.00) X 10*3/uL Eosinophils # (0.04-0.35) X 10*3/uL NRBC/100 WBC Diff (0.0-0.0) /100 WBCS APTT 44.0 H (22.0-30.0) sec Sodium (137-145) mmol/L Potassium (3.5-5.1) mmol/L Chloride (98-107) mmol/L BUN (7-17) mg/dL Creatinine (0.52-1.04) mg/dL Glucose (74-99) mg/dL POC Glucose (mg/dL) 207 H 157 H (75-99) mg/dL Total Bilirubin (0.2-1.3) mg/dL AST (14-36) U/L 09/04/20 09/04/20 09/04/20 Range/Units 05:53 05:53 05:53 RBC 2.63 L (4.10-5.20) X 10*6/uL Hgb 7.9 L (12.0-15.0) g/dL Hct 26.6 L (37.2-46.3) % MCV 101.1 H (80.0-97.0) fL MCHC 29.7 L (32.0-37.0) g/dL RDW 18.1 H (11.5-14.5) % Plt Count 134 L (140-440) X 10*3/uL Absolute Nucleated RBC 0.02 H (0.00-0.00) X 10*3/uL Immature Gran # 0.09 H (0.00-0.04) X 10*3/uL Lymphocytes # 0.42 L (0.90-5.00) X 10*3/uL Eosinophils # 0.03 L (0.04-0.35) X 10*3/uL NRBC/100 WBC Diff 0.3 H (0.0-0.0) /100 WBCS APTT 42.9 H (22.0-30.0) sec Sodium 136 L (137-145) mmol/L Potassium 7.5 H* (3.5-5.1) mmol/L Chloride 94 L (98-107) mmol/L BUN 68 H (7-17) mg/dL Creatinine 6.33 H (0.52-1.04) mg/dL Glucose 119 H (74-99) mg/dL POC Glucose (mg/dL) (75-99) mg/dL Total Bilirubin 1.4 H (0.2-1.3) mg/dL AST 83 H (14-36) U/L 09/04/20 Range/Units 07:42 RBC (4.10-5.20) X 10*6/uL Hgb (12.0-15.0) g/dL Hct (37.2-46.3) % MCV (80.0-97.0) fL MCHC (32.0-37.0) g/dL RDW (11.5-14.5) % Plt Count (140-440) X 10*3/uL Absolute Nucleated RBC (0.00-0.00) X 10*3/uL Immature Gran # (0.00-0.04) X 10*3/uL Lymphocytes # (0.90-5.00) X 10*3/uL Eosinophils # (0.04-0.35) X 10*3/uL NRBC/100 WBC Diff (0.0-0.0) /100 WBCS APTT (22.0-30.0) sec Sodium (137-145) mmol/L Potassium (3.5-5.1) mmol/L Chloride (98-107) mmol/L BUN (7-17) mg/dL Creatinine (0.52-1.04) mg/dL Glucose (74-99) mg/dL POC Glucose (mg/dL) 125 H (75-99) mg/dL Total Bilirubin (0.2-1.3) mg/dL AST (14-36) U/L Assessment and Plan Assessment: 1. Left upper extremity occluded brachial to cephalic vein fistula. Complete occlusion of the left cephalic vein 2. Previous balloon dilation and stenting of fistula (done at [place], Dr. Horvath) 3. End-stage renal disease on hemodialysis 4. Hypertension 5. Hyperlipidemia 6. History of infective endocarditis 7. History of mitral valve replacement Plan: 1. Continue IV heparin 2. Recommend outpatient follow-up vascular surgery 3. Continue other medical management per primary medicine team 4. No acute indication for any vascular surgical intervention at this time, patient will follow up as an outpatient for further recommendations on fistula repair and/or creation Thank you for this consultation, further recommendations forthcoming The impression and plan of care has been dictated as directed. I performed a history and examination of this patient, discussed the same with the dictator. I agree with the dictator's note ,documented as a scribe. Any additional findings or plans will be noted.
--- NOTE | 2020-09-04 12:13 | P.NPCON ---
History of Present Illness - Reason for Consult end stage renal disease - History of Present Illness Reason for consultation: End-stage renal disease History of present is: Patient is a 55-year-old female seen in renal consultation for end-stage renal disease. She is maintained on hemodialysis on Thursday schedule. Patient presented to the hospital due to swelling in her left upper extremity. There was concern for DVT which she has been evaluated by vascular surgery and heparin drip has been discontinued. She is tolerating dialysis well. Potassium level was 7.5 this morning and will be repeated this evening. She denies chest pain or shortness of breath. Hemodynamically stable. No fever or chills. Patient does a history of endocarditis and is maintained on IV vancomycin as well as rifampin outpatient. This was prescribed during her last admission at [facility]. No vomiting or diarrhea. Does admit to swelling in her lower extremity is. No cough. Vital signs are stable. General: The patient appeared well nourished and normally developed. HEENT: Head exam is unremarkable. Neck is without jugular venous distension. LUNGS: Breath sounds decreased. HEART: Rate and Rhythm are regular. ABDOMEN: Soft, nontender. EXTREMITITES: 2+ edema. Past Medical History Past Medical History: Blood Disorder, Heart Failure, Diabetes Mellitus, Dialysis, Hyperlipidemia, Hypertension, Liver Disease, Pneumonia, Renal Disease Additional Past Medical History / Comment(s): Pt recently admitted to [facility] on 08/02/20 with fluid overload/swelling. Other hx: MRSA infection in blood with IV ABX while at dialysis until 09/06/20, bilateral cataracts, recently diagnosed with bilateral retinal hemorrhages, hypertriglyceridemia-induced acute pancreatitis, THEN necrotizing pancreatitis. hemodialysis for acute kidney injury 2 months in 2009 after pancreatic OR, 11/2015 diagnosed w/ chronic kidney disease-hemodialysis -last hemodialysis 06/02/19, IDDM type II, past DKA, UTI, chronic anemia, frequent body cramping, occasional low back pain, carter's palsy x2, past L leg fx, possible liver disease-recent liver bx-results unknown per pt (2009). History of Any Multi-Drug Resistant Organisms: MRSA Date of last positivie culture/infection: 06/10/20 MDRO Source:: Blood Past Surgical History: Cardiac Valve Replacement, Orthopedic Surgery, Uterine Ablation Additional Past Surgical History / Comment(s): 08/26/17 colonoscopy with polypectomy/bx, pancreatic resection at [facility] 2009, bone marrow biopsies X2-last one 05/19/16,. dialysis chest port x 2 with removals, Left arm shunt placement for dialysis - December 2015 and a revision done with shunt. Left forearm Vein Revision - October 2019, liver biopsy Past Anesthesia/Blood Transfusion Reactions: No Reported Reaction Additional Past Anesthesia/Blood Transfusion Reaction / Comment(s): Pt has received blood transfusions without reaction. Past Psychological History: No Psychological Hx Reported Additional Psychological History / Comment(s): Pt resides at her mother in laws home at this time with spouse. They are her mother in laws caretakers. She is independent. She uses no assistive device. She drives. She receives antibiotic infusion while at dialysis. Smoking Status: Never smoker Past Alcohol Use History: None Reported Additional Past Alcohol Use History / Comment(s): Patient is a lifelong nonsmoker. Past Drug Use History: None Reported - Past Family History Brother(s) Family Medical History: No Reported History Mother Family Medical History: Cancer Additional Family Medical History / Comment(s): . Father Family Medical History: Hypertension Additional Family Medical History / Comment(s): alcoholism Medications and Allergies Home Medications Medication Instructions Recorded Confirmed Type cloNIDine HCL [Catapres] 0.3 mg PO TID@0530,1300,1900 12/16/16 09/03/20 History Prochlorperazine [Compazine] 5 mg PO BID PRN 10/26/17 09/03/20 History INSULIN LISPRO (humaLOG) [humaLOG] 10 unit SQ AC-TID 07/12/18 09/03/20 History hydrALAZINE HCL [Apresoline] 100 mg PO QID 12/14/18 09/03/20 History HYDROcodone/APAP 7.5-325MG [[place] 1 tab PO Q8H 11/08/19 09/03/20 History 7.5-325] Montelukast [Singulair] 10 mg PO HS@1900 11/08/19 09/03/20 History Insulin Glargine,Hum.rec.anlog See Protocol SQ HS 12/02/19 09/03/20 History [Basaglar Kwikpen U-100] Albuterol Sulfate [Proair Hfa] 2 puff INHALATION RT-Q6H PRN 01/28/20 09/03/20 History INSULIN LISPRO (HumaLOG) [humaLOG] See Protocol SQ ACHS 03/17/20 09/03/20 History Sildenafil [Revatio] 20 mg PO TID@0530,1300,1900 04/20/20 09/03/20 History traMADol HCL [Ultram] 50 mg PO Q12H PRN 05/13/20 09/03/20 History Ascorbic Acid [Vitamin C] 500 mg PO DAILY@0530 07/09/20 09/03/20 History Atorvastatin [Lipitor] 40 mg PO HS@1900 07/09/20 09/03/20 History Metoprolol Tartrate [Lopressor] 50 mg PO TID 07/09/20 09/03/20 History rifAMPin [Rifampin] 300 mg PO TID@0530,1300,1900 07/09/20 09/03/20 History Gabapentin [Neurontin] 100 mg PO TID 08/02/20 09/03/20 History Omeprazole 20 mg PO BID 08/02/20 09/03/20 History Benzonatate [Tessalon Perles] 100 mg PO TID PRN 08/13/20 09/03/20 History Cyclobenzaprine [Flexeril] 5 mg PO HS 08/13/20 09/03/20 History Furosemide [Lasix] 40 mg PO DAILY 08/13/20 09/03/20 History diazePAM [Valium] 5 mg PO BID 08/13/20 09/03/20 History rOPINIRole HCL [Requip] 1 mg PO TID 08/13/20 09/03/20 History Allergies Allergy/AdvReac Type Severity Reaction Status Date / Time Anesthetics - Amide Type - Allergy Unknown Verified 09/03/20 10:59 Select A Anesthetics - Andree Type- Allergy Unknown Verified 09/03/20 10:59 Parabens hydromorphone [From Dilaudid] Allergy Swelling Verified 09/03/20 15:54 ciprofloxacin [From Cipro] AdvReac AFFECTED Verified 09/03/20 10:59 EYESIGHT ciprofloxacin HCl AdvReac AFFECTED Verified 09/03/20 10:59 [From Cipro] EYESIGHT Iodinated Contrast Media AdvReac RENAL Verified 09/03/20 10:59 FAILURE Physical Exam Vitals: Vital Signs Temp Pulse Pulse Resp BP BP Pulse Ox 09/04/20 11:37 97.6 F 87 16 135/77 09/04/20 07:50 98 F 92 16 153/79 94 L 09/04/20 05:53 131/74 09/04/20 01:42 98.8 F 82 113/69 09/03/20 20:47 98.3 F 88 19 135/77 96 09/03/20 19:09 87 18 134/84 97 09/03/20 16:13 96 18 135/72 98 09/03/20 14:24 98.2 F 102 H 18 163/95 98 Intake and Output 09/03/20 09/04/20 09/04/20 22:59 06:59 14:59 Intake Total 116.624 132.088 379.931 Output Total 4000 Balance 116.624 132.088 -3620.069 Intake: Intake, IV Titration 116.624 132.088 83.931 Amount Heparin Sod,Pork in 0.45% 116.624 132.088 83.931 NaCl 25,000 unit In 0.45 % NaCl 1 250ml.bag @ 18 UNITS/KG/HR 14.86 mls/hr IV .[id number] [facility] Rx#: [id number] Oral 296 Output: Hemodialysis 4000 Other: Voiding Method Toilet # Voids 0 Weight 82.554 kg Results - Lab Results Most recent lab results Calcium 8.6 mg/dL (8.4-10.2) 09/04/20 05:53 09/04/20 05:53 09/04/20 05:53 Assessment and Plan Plan: Assessment: 1. End-stage renal disease maintained on hemodialysis on Thursday schedule. 2. Left upper extremity swelling. Evaluated by vascular surgery. Heparin drip stopped. 3. Hyperkalemia secondary to chronic kidney disease. 4. Hypertension with chronic any disease. Controlled. 5. Endocarditis maintained on vancomycin and rifampin per [facility]. 6. Chronic kidney disease mineral bone disease. 7. Anemia of chronic kidney disease. 8. Diabetes mellitus. Plan: Currently seen while undergoing hemodialysis. Plan for another treatment tomorrow due to volume overload. Vancomycin pharmacy to dose. Target level near 15. Add Aranesp. Patient to resume Kayexalate daily outpatient. Renal diet. Repeat potassium level this evening. Thank you for the consultation. I will continue to follow the patient with you during her hospital stay.
[2020-09-04] MEDS ORDERED: DARBEPOETIN ALFA 40 MCG/0.4 ML SYRINGE SQ SCH (12:30)
[2020-09-04] MEDS ORDERED: VANCOMYCIN IV PER PHARMACY 1 EACH MISC MISCELLANE PRN (12:39)
[2020-09-04] MEDS ORDERED: BENZONATATE 100 MG CAP PO PRN (12:40)
[2020-09-04] MEDS ORDERED: VANCOMYCIN 1,500 MG in SODIUM CHLORIDE 0.9% 250 ML IVPB ONE (13:00)
[2020-09-04] MEDS: METOPROLOL TARTRATE 50 MG TAB PO SCH ×3 (13:16→22:25)
[2020-09-04] MEDS: diazePAM 5 MG TAB PO SCH ×2 (13:16→21:21)
[2020-09-04] MEDS: hydrALAZINE HCL 50 MG TAB PO SCH ×4 (13:17→22:25)
[2020-09-04] MEDS: FUROSEMIDE 40 MG TAB PO SCH (13:17)
[2020-09-04] MEDS: PANTOPRAZOLE 40 MG TABLET PO SCH ×2 (13:18→17:36)
[2020-09-04] MEDS: traMADol 50 MG TAB PO SCH ×2 (13:18→21:20)
[2020-09-04] MEDS: GABAPENTIN 100 MG CAP PO SCH ×3 (13:18→22:25)
[2020-09-04 17:12] LABS: Glucose,Whole Blood 155 mg/dL (75-99)
[2020-09-04] MEDS: MONTELUKAST 10 MG TAB PO SCH (17:36)
[2020-09-04] MEDS: ATORVASTATIN 40 MG TAB PO SCH (17:37)
--- NOTE | 2020-09-04 18:25 | PN ---
PROGRESS NOTE ADDENDUM: Acute on chronic diastolic heart failure. MMODL / IJN: [id number] /
--- NOTE | 2020-09-04 18:28 | PN ---
PROGRESS NOTE This is a white female who was admitted for blood clot in her left subclavian. Nephrology saw her for dialysis for end-stage renal disease. The potassium was 7.5 this morning, which could be repeated and possible Kayexalate was given. Vital signs stable, afebrile. Cardiovascular S1, S2. Lungs clear. GI soft. Continue on Aranesp for anemia, Kayexalate for hyperkalemia. Renal diet. ASSESSMENT: 1. Left upper extremity swelling. Vascular surgery is evaluating her. Heparin drip was stopped. 2. Hypertension. 3. History of endocarditis. 4. Chronic kidney disease. 5. Anemia of chronic disease. 6. Diabetes mellitus. Undergo vancomycin as continuing treatment and undergoing dialysis, target level is near 15. Prognosis is extremely guarded. Chronic blood clot in the arm. Waiting for Vascular Surgeon to determine if any treatment for this will be needed. She has a history for left subclavian stent, which is present. She had a previous balloon dilation and stenting of fistula, occluded brachial to cephalic vein fistula, complete occlusion of left cephalic vein. Not sure what we can do for blood thinners, but follow up as an outpatient for further treatment. MMODL / IJN: [id number] /
[2020-09-04 20:52] LABS: Glucose,Whole Blood 219 mg/dL (75-99)
[2020-09-04] MEDS ORDERED: CALCIUM CARBONATE 500 MG CHEWABLE PO PRN (22:05)
[2020-09-05] MEDS: MORPHINE SULFATE 2 MG/ML SYRINGE IVP PRN ×2 (01:03→08:11)
[2020-09-05] MEDS: HYDROcodone/APAP 7.5-325MG 1 EACH TAB PO SCH ×2 (03:07→10:53)
[2020-09-05] MEDS: cloNIDine HCL 0.1 MG TAB PO SCH ×2 (04:55→12:22)
[2020-09-05] MEDS: SILDENAFIL 20 MG TAB PO SCH ×2 (04:55→12:23)
[2020-09-05] MEDS: rifAMPin 300 MG CAP PO SCH ×2 (04:55→12:23)
[2020-09-05 07:04] LABS: Glucose,Whole Blood 121 mg/dL (75-99)
[2020-09-05] MEDS: ALBUTEROL HFA INHALER INHALATION PRN ×2 (07:12→11:31)
[2020-09-05] MEDS: INSULIN ASPART (NovoLOG) 100 UNIT/ML VIAL SQ SCH ×2 (07:36→12:18)
[2020-09-05] MEDS: hydrALAZINE HCL 50 MG TAB PO SCH ×2 (08:06→12:23)
[2020-09-05] MEDS: METOPROLOL TARTRATE 50 MG TAB PO SCH ×2 (08:07→15:28)
[2020-09-05 09:12] LABS: African American GFR (CKD) 10 (>60 ml/min/1.73 sqM); Anion Gap 18 mmol/L; Blood Urea Nitrogen 53 mg/dL (7-17); Calcium 9.5 mg/dL (8.4-10.2); Carbon Dioxide 22 mmol/L (22-30); Chloride 95 mmol/L (98-107); Glucose 110 mg/dL (74-99); Non-African American GFR(CKD) 8 (>60 ml/min/1.73 sqM); Sodium 135 mmol/L (137-145)
[2020-09-05 09:17] LABS: Vancomycin,Random 14.9 ug/mL
[2020-09-05 09:47] LABS: Potassium 6.9 mmol/L (3.5-5.1)
[2020-09-05] MEDS: traMADol 50 MG TAB PO SCH (10:52)
[2020-09-05] MEDS: PANTOPRAZOLE 40 MG TABLET PO SCH (10:52)
[2020-09-05] MEDS: GABAPENTIN 100 MG CAP PO SCH ×2 (10:52→15:28)
[2020-09-05] MEDS: diazePAM 5 MG TAB PO SCH (10:52)
[2020-09-05] MEDS: FUROSEMIDE 40 MG TAB PO SCH (10:52)
[2020-09-05 11:26] LABS: Glucose,Whole Blood 114 mg/dL (75-99)
[2020-09-05] MEDS ORDERED: SODIUM POLYSTYRENE SULFONATE 15 GM/60 ML BOTTLE PO SCH (12:15)
--- NOTE | 2020-09-05 12:15 | P.PN ---
Subjective Patient is seen in follow-up for her incisional disease. She is maintained on hemodialysis on Thursday schedule. Completed dialysis this morning. Denies chest pain or shortness of breath. Vital signs are stable. General: The patient appeared well nourished and normally developed. HEENT: Head exam is unremarkable. Neck is without jugular venous distension. LUNGS: Breath sounds decreased. HEART: Rate and Rhythm are regular. ABDOMEN: Soft, nontender. EXTREMITITES: 1+ edema. Objective - Vital Signs Vital signs: Vital Signs Temp 97.9 F 09/05/20 12:01 Pulse 70 09/05/20 12:01 Resp 18 09/05/20 12:01 BP 135/71 09/05/20 12:01 Pulse Ox 97 09/05/20 07:54 Intake & Output 09/04/20 09/05/20 09/05/20 18:59 06:59 18:59 Intake Total 615.931 Output Total 4000 3300 Balance -3384.069 -3300 Weight 80.9 kg Intake: Intake, IV Titration 83.931 Amount Heparin Sod,Pork in 0.45% 83.931 NaCl 25,000 unit In 0.45 % NaCl 1 250ml.bag @ 18 UNITS/KG/HR 14.86 mls/hr IV .[id number] [facility] Rx#: [id number] Oral 532 Output: Hemodialysis 4000 3300 Other: Voiding Method Toilet Toilet # Voids 4 2 - Labs CBC & Chem 7: 09/04/20 05:53 09/05/20 07:33 Labs: Abnormal Lab Results - Last 24 Hours (Table) 09/04/20 09/04/20 09/04/20 Range/Units 17:07 17:11 20:48 Sodium (137-145) mmol/L Potassium 5.3 H (3.5-5.1) mmol/L Chloride (98-107) mmol/L BUN (7-17) mg/dL Creatinine (0.52-1.04) mg/dL Glucose (74-99) mg/dL POC Glucose (mg/dL) 155 H 219 H (75-99) mg/dL 09/05/20 09/05/20 09/05/20 Range/Units 07:03 07:33 11:25 Sodium 135 L (137-145) mmol/L Potassium 6.9 H* (3.5-5.1) mmol/L Chloride 95 L (98-107) mmol/L BUN 53 H (7-17) mg/dL Creatinine 5.44 H (0.52-1.04) mg/dL Glucose 110 H (74-99) mg/dL POC Glucose (mg/dL) 121 H 114 H (75-99) mg/dL Assessment and Plan Plan: Assessment: 1. End-stage renal disease maintained on hemodialysis on Thursday schedule. 2. Left upper extremity swelling. Evaluated by vascular surgery. Heparin drip stopped. 3. Hyperkalemia secondary to chronic kidney disease. 4. Hypertension with chronic any disease. Controlled. 5. Endocarditis maintained on vancomycin and rifampin per [facility]. 6. Chronic kidney disease mineral bone disease. 7. Anemia of chronic kidney disease. Maintained on Aranesp. 8. Diabetes mellitus. Plan: Completed hemodialysis this morning. Next treatment tomorrow. Vancomycin pharmacy to dose. Target level near 15. Patient to resume Kayexalate daily outpatient. Renal diet. Repeat potassium level in 2 hours.
[2020-09-05] MEDS: ONDANSETRON 4 MG/2 ML VIAL IVP PRN (13:58)
[2020-09-05] MEDS ORDERED: VANCOMYCIN 1,500 MG in SODIUM CHLORIDE 0.9% 250 ML IVPB ONE (15:00)
[2020-09-05 15:20] VITALS: BP 114/55; PULSE 86; RESP 19; TEMP 98.5
--- NOTE | 2020-09-05 21:58 | DS ---
DISCHARGE SUMMARY This is a 55-year-old white female who came in with end-stage renal failure, fluid overload, severe hyperkalemia, left upper extremity DVT found out to be a subclavian stent. She was started on IV heparin for 24 to 48 hours and discontinued as it was found out to be a stent. Her medicines were readjusted for hyperkalemia, which was treated with dialysis and medications. Home medicines will be: 1. Aranesp 40 mcg every 7 days. 2. Kayexalate 15 grams daily. 3. Tums 500 t.i.d. 4. Vancomycin 1500 mg IV piggyback per Dr. Coker's recommendations. 5. Catapres 0.3 t.i.d. 6. Compazine 5 mg b.i.d. p.r.n. for nausea. 7. Humalog 10 units subcutaneously before meals t.i.d. 8. Apresoline 100 q.i.d. 9. [place] 7.5 q.8. 10.Singulair 10 daily. 11.Basaglar per home dose. 12.Albuterol 2 puffs q.4 hours p.r.n. 13.Revatio 20 mg p.o. t.i.d. 14.Tramadol 50 mg q.12. 15.Rifampin 300 mg t.i.d. 16.Lipitor 40 mg at bedtime. 17.Lopressor 50 t.i.d. 18.Omeprazole 20 b.i.d. 19.Neurontin 100 t.i.d. 20.Tessalon Perles 100 t.i.d. 21.Valium 5 mg b.i.d. 22.Requip 1 mg t.i.d. 23.Flexeril 5 at bedtime. 24.Lasix 40 daily. Follow up as an outpatient. CONDITION: Stable. PROGNOSIS: Guarded. Ambulate as tolerated. MMODL / IJN: [id number] /
== END 2020-09-05 16:23 | disposition home health service (06) | DRG 314 ==
LOC: EC 08:46 → 4SSUR 11:28
PROVIDERS: ADMIT Family Medicine; ATTEND Family Medicine
PROC: 5A1D70Z Performance of Urinary Filtration, Intermittent, Less than 6 Hours Per Day (ICD-10-PCS; principal; 2020-09-04)
DX: T82.868A Thrombosis due to vascular prosthetic devices, implants and grafts, initial encounter (principal); I50.33 Acute on chronic diastolic (congestive) heart failure; N18.6 End stage renal disease; I13.2 Hypertensive heart and chronic kidney disease with heart failure and with stage 5 chronic kidney disease, or end stage renal disease; E83.9 Disorder of mineral metabolism, unspecified; D63.1 Anemia in chronic kidney disease; E11.22 Type 2 diabetes mellitus with diabetic chronic kidney disease; Z79.4 Long term (current) use of insulin; Z99.2 Dependence on renal dialysis; Z20.822 Contact with and (suspected) exposure to COVID-19; K75.81 Nonalcoholic steatohepatitis (NASH); K76.9 Liver disease, unspecified; E87.5 Hyperkalemia; E78.5 Hyperlipidemia, unspecified; E78.00 Pure hypercholesterolemia, unspecified; I25.10 Atherosclerotic heart disease of native coronary artery without angina pectoris; M54.5 Low back pain; Z79.899 Other long term (current) drug therapy; Z86.14 Personal history of Methicillin resistant Staphylococcus aureus infection; Z98.42 Cataract extraction status, left eye; Z98.41 Cataract extraction status, right eye; Z87.440 Personal history of urinary (tract) infections; Z87.19 Personal history of other diseases of the digestive system; Z87.81 Personal history of (healed) traumatic fracture; Z95.3 Presence of xenogenic heart valve; Z87.42 Personal history of other diseases of the female genital tract; Z86.79 Personal history of other diseases of the circulatory system; Z90.411 Acquired partial absence of pancreas; Z87.01 Personal history of pneumonia (recurrent); Z86.69 Personal history of other diseases of the nervous system and sense organs; Z98.890 Other specified postprocedural states; Z88.4 Allergy status to anesthetic agent; Z88.1 Allergy status to other antibiotic agents; Z91.041 Radiographic dye allergy status; Y84.1 Kidney dialysis as the cause of abnormal reaction of the patient, or of later complication, without mention of misadventure at the time of the procedure; Z80.9 Family history of malignant neoplasm, unspecified; Z82.49 Family history of ischemic heart disease and other diseases of the circulatory system; Z81.1 Family history of alcohol abuse and dependence
CPT/HCPCS: 36415; 80048; 80053; 80202; 84132; 85025; 85610; 85730; 87636; 90935; 94640; 96374; 99285

== ENCOUNTER 2020-09-06 12:35 | Observation (INO) | payer OTHER ==
[2020-09-06 13:46] LABS: Anisocytosis Slight; HCT 24.8 % (34.0-46.0); HGB 8.4 gm/dL (11.4-16.0); MCH 31.4 pg (25.0-35.0); MCV 92.3 fL (80.0-100.0); Mean Platelet Volume 8.7; Platelet Count 122 k/uL (150-450); RBC 2.69 m/uL (3.80-5.40); RDW 18.1 % (11.5-15.5)
[2020-09-06 14:08] LABS: Albumin 3.4 g/dL (3.5-5.0); Bilirubin, Delta 0.7 mg/dL (0.0-0.2); Bilirubin,Unconjugated 0.3 mg/dL (0.0-1.1); Calcium 8.8 mg/dL (8.4-10.2); Potassium 3.5 mmol/L (3.5-5.1); Total Protein 6.2 g/dL (6.3-8.2)
--- NOTE | 2020-09-06 14:20 | US ---
EXAMINATION TYPE: US abdomen limited DATE OF EXAM: 09/06/2020 COMPARISON: CT 2019, US 2017 CLINICAL HISTORY: right upper quadrant, abn labs. EXAM MEASUREMENTS: Liver Length: 20.9 cm Gallbladder Wall: 0.2 cm CBD: 1.0 cm Right Kidney: 8.8 x 2.9 x 3.0 cm Pancreas: obscured by overlying bowel gas Liver: enlarged, mildly lobulated contour Gallbladder: hydropic, no stones seen, no wall thickening Evidence for sonographic Campos's sign: no CBD: dilated Right Kidney: small in size, small calcifications throughout, 1.3cm cyst mid pole Abdominal ascites IMPRESSION: 1. Small amount of ascites. 2. Hydropic gallbladder with no gallstones or wall thickening. CBD dilated at 1 cm correlate for dist al CBD obstruction. 3. Atrophy of the right kidney. 4. Liver is enlarged and lobulated correlate for hepatomegaly and hepatocellular disease.
[2020-09-06 14:24] LABS: Band Neutrophils % 1 %; Eosinophils # (M) 0.04 k/uL (0-0.7); Neutrophils % (M) 84 %; Nucleated Red Blood Cells 6 /100 WBC (0-0); Total Cells Counted 200
[2020-09-06 14:25] LABS: WBC 3.7 k/uL (3.8-10.6)
[2020-09-06 14:26] LABS: Poikilocytosis (M) Present; Polychromasia Present
[2020-09-06] MEDS ORDERED: NALOXONE 0.4 MG/ML 1 ML VIAL IV PRN (14:38)
--- NOTE | 2020-09-06 14:38 | ED ---
General Adult HPI - General Chief complaint: Recheck/Abnormal Lab/Rx Stated complaint: abd labs Time Seen by Provider: 09/06/20 12:45 Source: patient Mode of arrival: ambulatory Limitations: no limitations - History of Present Illness Initial comments: 55-year-old female past medical history of end-stage renal disease on hemodialysis Thursday, and Thursday, diabetes, liver disease who presents emergency Department with reported abnormal labs. Patient reports that she was just discharged from the hospital yesterday after they thought that she had a blood clot in her arm. Patient followed up for her dialysis today at the [facility]. They performed laboratory studies and then she received a call stating that her liver enzymes were elevated. Patient was told to go into the emergency room for further evaluation. She admits to chronic nausea and vomiting. Denies abdominal pain. No fevers or chills. She did receive her full dialysis session today. No other alleviating, precipitating or modifying factors - Related Data Home Medications Medication Instructions Recorded Confirmed cloNIDine HCL [Catapres] 0.3 mg PO TID@0530,1300,1900 12/16/16 09/06/20 Prochlorperazine [Compazine] 5 mg PO BID PRN 10/26/17 09/06/20 INSULIN LISPRO (humaLOG) [humaLOG] 10 unit SQ AC-TID 07/12/18 09/06/20 hydrALAZINE HCL [Apresoline] 100 mg PO QID 12/14/18 09/06/20 HYDROcodone/APAP 7.5-325MG [[place] 1 tab PO Q8H 11/08/19 09/06/20 7.5-325] Montelukast [Singulair] 10 mg PO HS@1900 11/08/19 09/06/20 Insulin Glargine,Hum.rec.anlog See Protocol SQ HS 12/02/19 09/06/20 [Basaglar Kwikpen U-100] Albuterol Sulfate [Proair Hfa] 2 puff INHALATION RT-Q6H PRN 01/28/20 09/06/20 Sildenafil [Revatio] 20 mg PO TID@0530,1300,1900 04/20/20 09/06/20 traMADol HCL [Ultram] 50 mg PO Q12H PRN 05/13/20 09/06/20 Ascorbic Acid [Vitamin C] 500 mg PO DAILY@0530 07/09/20 09/06/20 Atorvastatin [Lipitor] 40 mg PO HS@1900 07/09/20 09/06/20 Metoprolol Tartrate [Lopressor] 50 mg PO TID 07/09/20 09/06/20 Gabapentin [Neurontin] 100 mg PO TID 08/02/20 09/06/20 Omeprazole 20 mg PO BID 08/02/20 09/06/20 Benzonatate [Tessalon Perles] 100 mg PO TID PRN 08/13/20 09/06/20 Cyclobenzaprine [Flexeril] 5 mg PO HS 08/13/20 09/06/20 Furosemide [Lasix] 40 mg PO DAILY 08/13/20 09/06/20 diazePAM [Valium] 5 mg PO BID 08/13/20 09/06/20 rOPINIRole HCL [Requip] 1 mg PO TID 08/13/20 09/06/20 Sodium Polystyrene Sulfonate 15 gm PO SUMOWEFR 09/06/20 09/06/20 [Kayexalate] Previous Rx's Medication Instructions Recorded Calcium Carbonate [Tums] 500 mg PO TID PRN 30 Days #90 chew 09/05/20 Allergies Allergy/AdvReac Type Severity Reaction Status Date / Time Anesthetics - Amide Type - Allergy Unknown Verified 09/06/20 15:12 Select A Anesthetics - Andree Type- Allergy Unknown Verified 09/06/20 15:12 Parabens hydromorphone [From Dilaudid] Allergy Swelling Verified 09/06/20 15:12 ciprofloxacin [From Cipro] AdvReac AFFECTED Verified 09/06/20 15:12 EYESIGHT ciprofloxacin HCl AdvReac AFFECTED Verified 09/06/20 15:12 [From Cipro] EYESIGHT Iodinated Contrast Media AdvReac RENAL Verified 09/06/20 15:12 FAILURE Review of Systems ROS Statement: Those systems with pertinent positive or pertinent negative responses have been documented in the HPI. ROS Other: All systems not noted in ROS Statement are negative. Past Medical History Past Medical History: Blood Disorder, Heart Failure, Diabetes Mellitus, Dialysis, Hyperlipidemia, Hypertension, Liver Disease, Pneumonia, Renal Disease Additional Past Medical History / Comment(s): Pt recently admitted to [facility] on 08/02/20 with fluid overload/swelling. Other hx: MRSA infection in blood with IV ABX while at dialysis until 09/06/20, bilateral cataracts, recently diagnosed with bilateral retinal hemorrhages, hypertriglyceridemia-induced acute pancreatitis, THEN necrotizing pancreatitis. hemodialysis for acute kidney injury 2 months in 2009 after pancreatic OR, 11/2015 diagnosed w/ chronic kidney disease-hemodialysis -last hemodialysis 06/02/19, IDDM type II, past DKA, UTI, chronic anemia, frequent body cramping, occasional low back pain, carter's palsy x2, past L leg fx, possible liver disease-recent liver bx-results unknown per pt (2009). History of Any Multi-Drug Resistant Organisms: MRSA Date of last positivie culture/infection: 06/10/20 MDRO Source:: Blood Past Surgical History: Cardiac Valve Replacement, Orthopedic Surgery, Uterine Ablation Additional Past Surgical History / Comment(s): 08/26/17 colonoscopy with polypectomy/bx, pancreatic resection at [facility] 2009, bone marrow biopsies X2-last one 05/19/16,. dialysis chest port x 2 with removals, Left arm shunt placement for dialysis - December 2015 and a revision done with shunt. Left forearm Vein Revision - October 2019, liver biopsy Past Anesthesia/Blood Transfusion Reactions: No Reported Reaction Additional Past Anesthesia/Blood Transfusion Reaction / Comment(s): Pt has received blood transfusions without reaction. Past Psychological History: No Psychological Hx Reported Smoking Status: Never smoker Past Alcohol Use History: None Reported Past Drug Use History: None Reported - Past Family History Brother(s) Family Medical History: No Reported History Mother Family Medical History: Cancer Additional Family Medical History / Comment(s): . Father Family Medical History: Hypertension Additional Family Medical History / Comment(s): alcoholism General Exam Limitations: no limitations General appearance: alert, in no apparent distress Head exam: Present: atraumatic, normocephalic, normal inspection Eye exam: Present: normal appearance, PERRL, EOMI. Absent: scleral icterus, conjunctival injection, periorbital swelling ENT exam: Present: normal exam, mucous membranes moist Neck exam: Present: normal inspection. Absent: tenderness, meningismus, lymphadenopathy Respiratory exam: Present: normal lung sounds bilaterally. Absent: respiratory distress, wheezes, rales, rhonchi, stridor Cardiovascular Exam: Present: regular rate, normal rhythm, normal heart sounds. Absent: systolic murmur, diastolic murmur, rubs, gallop, clicks GI/Abdominal exam: Present: soft, tenderness (RUQ), normal bowel sounds. Absent: distended, guarding, rebound, rigid Extremities exam: Present: normal inspection, full ROM, normal capillary refill, pedal edema. Absent: tenderness, joint swelling, calf tenderness Back exam: Present: normal inspection Neurological exam: Present: alert, oriented X3, CN II-XII intact Psychiatric exam: Present: normal affect, normal mood Skin exam: Present: warm, dry, intact, normal color. Absent: rash Course Vital Signs 09/06/20 09/06/20 12:44 18:06 Temperature 97.9 F 99 F Pulse Rate 70 86 Respiratory 16 18 Rate Blood Pressure 161/75 152/61 O2 Sat by Pulse 100 100 Oximetry Medical Decision Making - Medical Decision Making Upon arrival the patient was placed in room 25. Thorough history and physical exam was performed. Laboratory studies were conducted which demonstrates an AST of 643 and an ALT of 641. Patient did have normal liver enzymes on previous hospitalization. Because this is performed a limited abdominal ultrasound. It does demonstrate a small amount of ascites, hydropic gallbladder with no gallstones or wall thickening. Common bile duct dilated at 1 cm correlate for distal common bile duct obstruction. I did speak with Dr. Chaudhary who agreed to admit the patient. I will place nephrology and GI consult. Patient is currently awaiting a bed on the floor - Lab Data Result diagrams: 09/08/20 05:41 09/08/20 05:41 Lab Results 09/06/20 09/06/20 Range/Units 12:56 12:56 WBC 3.7 L (3.8-10.6) k/uL RBC 2.69 L (3.80-5.40) m/uL Hgb 8.4 L (11.4-16.0) gm/dL Hct 24.8 L (34.0-46.0) % MCV 92.3 (80.0-100.0) fL MCH 31.4 (25.0-35.0) pg MCHC 34.0 (31.0-37.0) g/dL RDW 18.1 H (11.5-15.5) % Plt Count 122 L (150-450) k/uL MPV 8.7 Neutrophils % (Manual) 84 % Band Neuts % (Manual) 1 % Lymphocytes % (Manual) 8 % Monocytes % (Manual) 8 % Eosinophils % (Manual) 1 % Neutrophils # (Manual) 3.10 (1.3-7.7) k/uL Lymphocytes # (Manual) 0.30 L (1.0-4.8) k/uL Monocytes # (Manual) 0.30 (0-1.0) k/uL Eosinophils # (Manual) 0.04 (0-0.7) k/uL Nucleated RBCs 6 H (0-0) /100 WBC Manual Slide Review Performed Polychromasia Present Poikilocytosis (manual Present Anisocytosis Slight Sodium 138 (137-145) mmol/L Potassium 3.5 (3.5-5.1) mmol/L Chloride 93 L (98-107) mmol/L Carbon Dioxide 35 H (22-30) mmol/L Anion Gap 10 mmol/L BUN 21 H (7-17) mg/dL Creatinine 2.61 H (0.52-1.04) mg/dL Est GFR (CKD-EPI)AfAm 23 (>60 ml/min/1.73 sqM) Est GFR (CKD-EPI)NonAf 20 (>60 ml/min/1.73 sqM) Glucose 136 H (74-99) mg/dL Calcium 8.8 (8.4-10.2) mg/dL Total Bilirubin 1.0 (0.2-1.3) mg/dL Conjugated Bilirubin 0.0 (0.0-0.3) mg/dL Unconjugated Bilirubin 0.3 (0.0-1.1) mg/dL Delta Bilirubin 0.7 H (0.0-0.2) mg/dL AST 643 H (14-36) U/L ALT 641 H (4-34) U/L Alkaline Phosphatase 145 H (38-126) U/L Total Protein 6.2 L (6.3-8.2) g/dL Albumin 3.4 L (3.5-5.0) g/dL Lipase 52 (23-300) U/L Disposition Clinical Impression: Transaminitis, ESRD (end stage renal disease) on dialysis, Nausea and vomiting Disposition: ADMITTED IP TO THIS HOSP Condition: Stable Is patient prescribed a controlled substance at d/c from ED?: No Decision to Admit Reason: Admit from EC Decision Date: 09/06/20 Decision Time: 14:38
[2020-09-06] MEDS ORDERED: MORPHINE SULFATE 4 MG/ML SYRINGE IVP STA (15:13)
[2020-09-06 19:53] LABS: Glucose,Whole Blood 276 mg/dL (75-99)
[2020-09-06] MEDS ORDERED: PROCHLORPERAZINE 5 MG TAB PO PRN (21:17)
[2020-09-06] MEDS ORDERED: CALCIUM CARBONATE 500 MG CHEWABLE PO PRN (21:17)
[2020-09-06] MEDS ORDERED: ALBUTEROL NEBULIZED 2.5 MG/3 ML INHALATION PRN (21:17)
[2020-09-06] MEDS ORDERED: BENZONATATE 100 MG CAP PO PRN (21:17)
[2020-09-06] MEDS ORDERED: traMADol 50 MG TAB PO PRN (21:17)
[2020-09-06] MEDS: GABAPENTIN 100 MG CAP PO SCH (21:47)
[2020-09-06] MEDS: METOPROLOL TARTRATE 50 MG TAB PO SCH (21:47)
[2020-09-06] MEDS: ONDANSETRON 4 MG/2 ML VIAL IVP PRN (22:13)
[2020-09-06] MEDS: MORPHINE SULFATE 2 MG/ML SYRINGE IVP PRN (22:13)
[2020-09-06] MEDS: HYDROcodone/APAP 7.5-325MG 1 EACH TAB PO SCH (22:19)
[2020-09-07] MEDS: ONDANSETRON 4 MG/2 ML VIAL IVP PRN ×2 (03:44→14:22)
[2020-09-07] MEDS: MORPHINE SULFATE 2 MG/ML SYRINGE IVP PRN ×3 (03:46→21:05)
[2020-09-07] MEDS: HYDROcodone/APAP 7.5-325MG 1 EACH TAB PO SCH ×3 (05:43→19:40)
[2020-09-07] MEDS: ASCORBIC ACID 500 MG TAB PO SCH (05:44)
[2020-09-07] MEDS: cloNIDine HCL 0.1 MG TAB PO SCH ×3 (05:44→19:39)
[2020-09-07] MEDS: hydrALAZINE HCL 50 MG TAB PO SCH ×4 (05:45→19:40)
[2020-09-07] MEDS: SILDENAFIL 20 MG TAB PO SCH ×3 (05:45→19:41)
[2020-09-07 08:07] LABS: Glucose,Whole Blood 243 mg/dL (75-99)
[2020-09-07] MEDS: INSULIN ASPART (NovoLOG) 100 UNIT/ML VIAL SQ SCH ×3 (08:13→17:42)
[2020-09-07] MEDS: PANTOPRAZOLE 40 MG TABLET PO SCH (08:14)
[2020-09-07] MEDS: FUROSEMIDE 40 MG TAB PO SCH (08:14)
[2020-09-07] MEDS: diazePAM 5 MG TAB PO SCH ×2 (08:14→19:40)
[2020-09-07] MEDS: METOPROLOL TARTRATE 50 MG TAB PO SCH ×3 (08:14→19:39)
[2020-09-07] MEDS: GABAPENTIN 100 MG CAP PO SCH ×3 (08:14→19:41)
[2020-09-07] MEDS: SODIUM POLYSTYRENE SULFONATE 15 GM/60 ML BOTTLE PO SCH (08:16)
[2020-09-07 08:18] LABS: ALT 669 U/L (4-34); AST 605 U/L (14-36); African American GFR (CKD) 15 (>60 ml/min/1.73 sqM); Albumin 3.5 g/dL (3.5-5.0); Albumin/Globulin Ratio 1.2; Alkaline Phosphatase 144 U/L (38-126); Anion Gap 10 mmol/L; Blood Urea Nitrogen 33 mg/dL (7-17); Calcium 8.7 mg/dL (8.4-10.2); Carbon Dioxide 32 mmol/L (22-30); Chloride 94 mmol/L (98-107); Glucose 223 mg/dL (74-99); Non-African American GFR(CKD) 13 (>60 ml/min/1.73 sqM); Potassium 4.2 mmol/L (3.5-5.1); Sodium 136 mmol/L (137-145); Total Protein 6.5 g/dL (6.3-8.2)
--- NOTE | 2020-09-07 10:06 | HP ---
HISTORY AND PHYSICAL A 55-year-old white female sent from the dialysis center into the hospital due to liver enzyme elevation of significant nature, increasing 10 times in her numbers for cirrhosis, possible ascites. She has chronic nausea, vomiting, abdominal bloating and distention for many months. She did not undergo her full dialysis treatment due to elevated liver enzymes. HOME MEDICINES: 1. Catapres 0.3 t.i.d. 2. Compazine 5 mg b.i.d. 3. Humalog 10 units a.c. t.i.d. 4. Hydralazine 100 units q.i.d. 5. Lipitor 40 daily. 6. Vitamin C 500 daily. 7. Tramadol 50 q.12. 8. Revatio 20 mg t.i.d. 9. Lasix 40 mg daily. 10.Valium 5 mg b.i.d. 11.Requip 1 mg t.i.d. 12.Kayexalate 50 mg 4 days a week. 13.Basaglar insulin. 14.Singulair 10 mg daily. ALLERGIES: ANESTHESIA, HYDROMORPHONE, CIPRO, IODINE CONTRAST. PAST MEDICAL HISTORY: Heart failure, diabetes mellitus, dialysis, hypertension, liver disease, pneumonia, renal disease, insulin dependent diabetes mellitus type 2, history DKA, pancreatitis, dyslipidemia, recent endocarditis with cardiac valve replacement, uterine ablation, orthopedic surgery. FAMILY HISTORY: Brothers and mother have cancer. Hypertension in his father. Alcoholism. PHYSICAL EXAMINATION: Blood pressure is 161/75, O2 100% on room air, respiratory rate 16 to 18, pulse of 65 to 70, temperature 97.9. CARDIOVASCULAR: S1, S2. LUNGS: Are clear. GI: Is distended due to obesity. Possible fluid wave. HEMATOLOGY: 2 to 3+ edema. PSYCH: Fair mood and affect. NEUROLOGIC: Alert and oriented x3. SKIN: No rashes or excoriations. CAT scan shows hydropic gallbladder, common bile duct dilated 1 cm. We are going to admit her for acute liver enzyme elevation, possible cirrhosis and cholecystitis versus choledochocystitis, end-stage renal disease, hypertension, diabetes mellitus, acute on chronic anemia, chronic pancytopenia, unclear etiology for this. She has seen Hematology many times in the past. Will get Surgery and GI consults and Renal consult for dialysis. Seen in the emergency room on 09/06/2020. MMODL / IJN: [id number] /
[2020-09-07 11:04] LABS: Basophils # (A) 0.02 X 10*3/uL (0.00-0.10); Basophils % (A) 0.4 %; Eosinophils # (A) 0.05 X 10*3/uL (0.04-0.35); Eosinophils % (A) 1.1 %; HCT 25.3 % (37.2-46.3); HGB 7.8 g/dL (12.0-15.0); Lymphocytes # (A) 0.33 X 10*3/uL (0.90-5.00); Lymphocytes % (A) 6.9 %; MCH 30.4 pg (27.0-32.0); MCHC 30.8 g/dL (32.0-37.0); MCV 98.4 fL (80.0-97.0); Mean Platelet Volume 10.5 fL (9.5-12.2); Monocytes # (A) 0.49 X 10*3/uL (0.20-1.00); Monocytes % (A) 10.3 %; Neutrophils % (A) 77.9 %; Platelet Count 112 X 10*3/uL (140-440); RBC 2.57 X 10*6/uL (4.10-5.20); RDW 17.7 % (11.5-14.5); WBC 4.75 X 10*3/uL (4.50-10.00)
[2020-09-07 11:55] LABS: Glucose,Whole Blood 120 mg/dL (75-99)
--- NOTE | 2020-09-07 11:57 | P.CRDCN ---
History of Present Illness History of present illness: HISTORY OF PRESENTING ILLNESS This is a pleasant 55-year-old female past medical history significant for end-stage renal disease on hemodialysis, infective endocarditis status post mitral valve repair, hypertension, dyslipidemia, diabetes mellitus, history of liver disease, pulmonary hypertension, chronic pancreatitis s/p partial pancratectomy and chronic heart failure. She follows in the office with Dr. Tesfaye. We have been asked to see in consultation for pre-operative evaluation. She was sent to the hospital on advice of Alessandro due to elevated liver enzymes noted on outpatient labs. She is found to have abdominal ascites on exam with lower extremity edema and JVD. According to her she has been told she has liver disease in the past and has had to have a paracentesis on one occasion. She is currently complaining of feeling full and tight all over. She has some mild na usea but no vomiting, orthopnea and PND with no chest pain. There is no EKG obtained on admission. She was seen in evaluation by the surgical PA and tentatively boarded for cholecystectomy. She underwent cardiac catheterization in 2019 revealing normal coronary arteries. TK performed 06/2020 revealed mildly impaired LV function with EF 40-45%, normally functioning bioprosthetic mitral valve and possible vegetation of the lateral wall of the LV. According to the patient she was subsequently transferred at that time to [facility] for closer evaluation and was told this was scar tissue and not recurrent endocarditis. Laboratory data reviewed, WBC 4.7, hemoglobin 7.8, platelets 112, sodium 136, po tassium 4.2, creatinine 3.68, alkaline phosphate 144, AST 605 and ALT 669. Current daily cardiac medications include atorvastatin 40 mg at bedtime, Lasix 40 mg daily, Lopressor 50 mg 3 times a day, sildenafil 20 mg 3 times a day, clonidine 0.3 mg 3 times a day and hydralazine 100 mg 4 times a day. REVIEW OF SYSTEMS At the time of my exam: CONSTITUTIONAL: Denies fever or chills. CARDIOVASCULAR: Complains of shortness of breath, orthopnea, PND. Denies chest pain or palpitations. RESPIRATORY: Denies cough. GASTROINTESTINAL: Complains of abdominal fullness. Denies abdominal pain, diarrhea, constipation, nausea or vomiting. MUSCULOSKELETAL: Denies myalgias. NEUROLOGIC: Denies numbness, tingling, headacbe or weakness. ENDOCRINE: Denies fatigue, weight change, polydipsia or polyurina. GENITOURINARY: Denies burning, hematuria or urgency with micturation. HEMATOLOGIC: Denies history of anemia or bleeding. PHYSICAL EXAMINATION Blood pressure 152/83 heart rate 87 afebrile and maintaining oxygen saturation on room air. CONSTITUTIONAL: No apparent distress. HEENT: Head is normocephalic. Pupils are equal, round. Sclerae anicteric. Mucous membranes of the mouth are moist. Positive JVD. No carotid bruit. CHEST EXAMINATION: Lungs are clear to auscultation. No chest wall tenderness is noted on palpation or with deep breathing. HEART EXAMINATION: Regular rate and rhythm. S1, S2 heard. Systolic ejection murmur at the base, no gallops or rub. ABDOMEN: Soft, nontender. Positive bowel sounds. Distended, tympanic with ascites. EXTREMITIES: 2+ peripheral pulses, 2+ bilateral lower extremity pitting edema and no calf tenderness. NEUROLOGIC EXAMINATION: Patient is awake, alert and oriented x3. ASSESSMENT Transaminitis Ascites Fluid overload Chronic diastolic heart failure Valvular heart disease s/p mitral valve repair in the setting of endocarditis Pulmonary hypertension Hypertension End stage renal disease on HD Anemia Diabetes mellitus Dyslipidemia PLAN Hold atorvastatin. From the cardiac perspective as far as surgery is concerned, she has no history of CAD and is currently chest pain free. Baseline EKG should be obtained. However, she is in fluid overloaded state likely due to liver failure and would benefit from evaluation at tertiary care center secondary to liver failure. Diuresis with IV lasix would likely not achieve significant output due to her renal failure. Thank you kindly for this consultation. Nurse Practitioner note has been reviewed, I agree with a documented findings and plan of care. Patient was seen and examined. Past Medical History Past Medical History: Blood Disorder, Heart Failure, Diabetes Mellitus, Dialysis, Hyperlipidemia, Hypertension, Liver Disease, Pneumonia, Renal Disease Additional Past Medical History / Comment(s): Pt recently admitted to [facility] on 08/02/20 with fluid overload/swelling. Other hx: MRSA infection in blood with IV ABX while at dialysis until 09/06/20, bilateral cataracts, recently diagnosed with bilateral retinal hemorrhages, hypertriglyceridemia-induced acute pancreatitis, THEN necrotizing pancreatitis. hemodialysis for acute kidney injury 2 months in 2009 after pancreatic OR, 11/2015 diagnosed w/ chronic kidney disease-hemodialysis /-last hemodialysis 06/02/19, IDDM type II, past DKA, UTI, chronic anemia, frequent body cramping, occasional low back pain, carter's palsy x2, past L leg fx, possible liver disease-recent liver bx-results unknown per pt (2009). History of Any Multi-Drug Resistant Organisms: MRSA Date of last positivie culture/infection: 06/10/20 MDRO Source:: Blood Past Surgical History: Cardiac Valve Replacement, Orthopedic Surgery, Uterine Ablation Additional Past Surgical History / Comment(s): 08/26/17 colonoscopy with polypectomy/bx, pancreatic resection at [facility] 2009, bone marrow biopsies X2-last one 05/19/16,. dialysis chest port x 2 with removals, Left arm shunt placement for dialysis - December 2015 and a revision done with shunt. Left forearm Vein Revision - October 2019, liver biopsy Past Anesthesia/Blood Transfusion Reactions: No Reported Reaction Additional Past Anesthesia/Blood Transfusion Reaction / Comment(s): Pt has received blood transfusions without reaction. Past Psychological History: No Psychological Hx Reported Additional Psychological History / Comment(s): Pt resides at her mother in laws home at this time with spouse. They are her mother in laws caretakers. She is independent. She uses no assistive device. She drives. She receives antibiot ic infusion while at dialysis. Smoking Status: Never smoker Past Alcohol Use History: None Reported Additional Past Alcohol Use History / Comment(s): Patient is a lifelong nonsmoker. Past Drug Use History: None Reported - Past Family History Brother(s) Family Medical History: No Reported History Mother Family Medical History: Cancer Additional Family Medical History / Comment(s): . Father Family Medical History: Hypertension Additional Family Medical History / Comment(s): alcoholism Medications and Allergies Home Medications Medication Instructions Recorded Confirmed Type cloNIDine HCL [Catapres] 0.3 mg PO TID@0530,1300,1900 12/16/16 09/06/20 History Prochlorperazine [Compazine] 5 mg PO BID PRN 10/26/17 09/06/20 History INSULIN LISPRO (humaLOG) [humaLOG] 10 unit SQ AC-TID 07/12/18 09/06/20 History hydrALAZINE HCL [Apresoline] 100 mg PO QID 12/14/18 09/06/20 History HYDROcodone/APAP 7.5-325MG [[place] 1 tab PO Q8H 11/08/19 09/06/20 History 7.5-325] Montelukast [Singulair] 10 mg PO HS@1900 11/08/19 09/06/20 History Insulin Glargine,Hum.rec.anlog See Protocol SQ HS 12/02/19 09/06/20 History [Basaglar Kwikpen U-100] Albuterol Sulfate [Proair Hfa] 2 puff INHALATION RT-Q6H PRN 01/28/20 09/06/20 History Sildenafil [Revatio] 20 mg PO TID@0530,1300,1900 04/20/20 09/06/20 History traMADol HCL [Ultram] 50 mg PO Q12H PRN 05/13/20 09/06/20 History Ascorbic Acid [Vitamin C] 500 mg PO DAILY@0530 07/09/20 09/06/20 History Atorvastatin [Lipitor] 40 mg PO HS@1900 07/09/20 09/06/20 History Metoprolol Tartrate [Lopressor] 50 mg PO TID 07/09/20 09/06/20 History Gabapentin [Neurontin] 100 mg PO TID 08/02/20 09/06/20 History Omeprazole 20 mg PO BID 08/02/20 09/06/20 History Benzonatate [Tessalon Perles] 100 mg PO TID PRN 08/13/20 09/06/20 History Cyclobenzaprine [Flexeril] 5 mg PO HS 08/13/20 09/06/20 History Furosemide [Lasix] 40 mg PO DAILY 08/13/20 09/06/20 History diazePAM [Valium] 5 mg PO BID 08/13/20 09/06/20 History rOPINIRole HCL [Requip] 1 mg PO TID 08/13/20 09/06/20 History Calcium Carbonate [Tums] 500 mg PO TID PRN 30 Days #90 chew 09/05/20 09/06/20 Rx Sodium Polystyrene Sulfonate 15 gm PO SUMOWEFR 09/06/20 09/06/20 History [Kayexalate] Allergies Allergy/AdvReac Type Severity Reaction Status Date / Time Anesthetics - Amide Type - Allergy Unknown Verified 09/06/20 15:12 [facility] - Andree Type- Allergy Unknown Verified 09/06/20 15:12 Parabens hydromorphone [From Dilaudid] Allergy Swelling Verified 09/06/20 15:12 ciprofloxacin [From Cipro] AdvReac AFFECTED Verified 09/06/20 15:12 EYESIGHT ciprofloxacin HCl AdvReac AFFECTED Verified 09/06/20 15:12 [From Cipro] EYESIGHT Iodinated Contrast Media AdvReac RENAL Verified 09/06/20 15:12 FAILURE Physical Exam Vitals: Vital Signs Temp Pulse Pulse Resp BP BP Pulse Ox 09/07/20 07:00 98.7 F 87 16 152/83 93 L 09/07/20 02:20 18 09/07/20 02:00 99.2 F 79 18 146/76 97 09/06/20 20:05 87 18 09/06/20 19:45 99.2 F 87 18 175/77 96 09/06/20 18:06 99 F 86 18 152/61 100 09/06/20 12:44 97.9 F 70 16 161/75 100 Intake and Output 09/06/20 09/07/20 09/07/20 22:59 06:59 14:59 Output Total 20 Balance -20 Output: Emesis 20 Other: Voiding Method Toilet # Voids 0 2 Weight 80.286 kg Results 09/07/20 05:06 09/07/20 05:06 Cardiac Enzymes 09/06/20 09/07/20 Range/Units 12:56 05:06 AST 643 H 605 H (14-36) U/L CBC 09/06/20 09/07/20 Range/Units 12:56 05:06 WBC 3.7 L 4.75 (3.8-10.6) k/uL RBC 2.69 L 2.57 L (3.80-5.40) m/uL Hgb 8.4 L 7.8 L (11.4-16.0) gm/dL Hct 24.8 L 25.3 L (34.0-46.0) % Plt Count 122 L 112 L (150-450) k/uL Comprehensive Metabolic Panel 09/06/20 09/07/20 Range/Units 12:56 05:06 Sodium 138 136 L (137-145) mmol/L Potassium 3.5 4.2 (3.5-5.1) mmol/L Chloride 93 L 94 L (98-107) mmol/L Carbon Dioxide 35 H 32 H (22-30) mmol/L BUN 21 H 33 H (7-17) mg/dL Creatinine 2.61 H 3.68 H (0.52-1.04) mg/dL Glucose 136 H 223 H (74-99) mg/dL Calcium 8.8 8.7 (8.4-10.2) mg/dL Unconjugated Bilirubin 0.3 (0.0-1.1) mg/dL AST 643 H 605 H (14-36) U/L ALT 641 H 669 H (4-34) U/L Alkaline Phosphatase 145 H 144 H (38-126) U/L Total Protein 6.2 L 6.5 (6.3-8.2) g/dL Albumin 3.4 L 3.5 (3.5-5.0) g/dL Current Medications Generic Name Dose Route Start Last Admin Trade Name Freq PRN Reason Stop Dose Admin Hydrocodone Bitart/Acetaminophen 1 each 09/06/20 22:00 09/07/20 05:43 Hydrocodone/Apap 7.5-325mg 1 Each Tab PO 1 each Q8H [facility] Administration Albuterol Sulfate 2 puff 09/07/20 08:24 Albuterol Hfa Inhaler INHALATION RT-TID PRN Shortness Of Breath Or Wheezing Ascorbic Acid 500 mg 09/07/20 05:30 09/07/20 05:44 Ascorbic Acid 500 Mg Tab PO 500 mg DAILY@0530 [facility] Administration Atorvastatin Calcium 40 mg 09/07/20 19:00 Atorvastatin 40 Mg Tab PO HS@1900 [facility] Benzonatate 100 mg 09/06/20 21:17 Benzonatate 100 Mg Cap PO TID PRN Cough Calcium Carbonate/Glycine 500 mg 09/06/20 21:17 Calcium Carbonate 500 Mg Chewable PO TID PRN Heartburn Clonidine 0.3 mg 09/07/20 05:30 09/07/20 05:44 Clonidine Hcl 0.1 Mg Tab PO 0.3 mg TID@0530,1300,1900 ANNI Administration Cyclobenzaprine HCl 5 mg 09/07/20 21:00 Cyclobenzaprine 5 Mg Tab PO HS [facility] Diazepam 5 mg 09/07/20 09:00 09/07/20 08:14 Diazepam 5 Mg Tab PO 5 mg BID ANNI Administration Furosemide 40 mg 09/07/20 09:00 09/07/20 08:14 Furosemide 40 Mg Tab PO 40 mg DAILY ANNI Administration Gabapentin 100 mg 09/06/20 22:00 09/07/20 08:14 Gabapentin 100 Mg Cap PO 100 mg TID ANNI Administration Hydralazine HCl 100 mg 09/07/20 05:30 09/07/20 05:45 Hydralazine Hcl 50 Mg Tab PO 100 mg QID@0530,1200,1600,1900 ANNI Administration Insulin Aspart 10 unit 09/07/20 07:30 09/07/20 08:13 Insulin Aspart (Novolog) 100 Unit/Ml Vial SQ 10 unit AC-TID ANNI Administration Metoprolol Tartrate 50 mg 09/06/20 22:00 09/07/20 08:14 Metoprolol Tartrate 50 Mg Tab PO 50 mg TID ANNI Administration Montelukast Sodium 10 mg 09/07/20 19:00 Montelukast 10 Mg Tab PO HS@1900 [facility] Morphine Sulfate 2 mg 09/06/20 21:57 09/07/20 03:46 Morphine Sulfate 2 Mg/Ml Syringe IVP 2 mg Q4H PRN Administration Severe Breakthrough Pain Naloxone HCl 0.2 mg 09/06/20 14:38 Naloxone 0.4 Mg/Ml 1 Ml Vial IV Q2M PRN Opioid Reversal Non-Formulary Medication 30 - 50 unit 09/07/20 21:00 Insulin Glargine,Hum.Rec.Anlog [Basaglar Kwikpen U-100] SQ HS [facility] Ondansetron HCl 4 mg 09/06/20 21:59 09/07/20 03:44 Ondansetron 4 Mg/2 Ml Vial IVP 4 mg Q6HR PRN Administration Nausea And Vomiting Pantoprazole Sodium 40 mg 09/07/20 07:30 09/07/20 08:14 Pantoprazole 40 Mg Tablet PO 40 mg [id number] [facility] Administration Prochlorperazine Maleate 5 mg 09/06/20 21:17 09/07/20 05:43 Prochlorperazine 5 Mg Tab PO 5 mg BID PRN Administration Nausea Ropinirole HCl 1 mg 09/06/20 22:00 09/07/20 08:14 Ropinirole Hcl 1 Mg Tab PO 1 mg TID ANNI Administration Sildenafil Citrate 20 mg 09/07/20 05:30 09/07/20 05:45 Sildenafil 20 Mg Tab PO 20 mg TID@0530,1300,1900 [facility] Administration Sodium Polystyrene Sulfonate 15 gm 09/07/20 09:00 09/07/20 08:16 Sodium Polystyrene Sulfonate 15 Gm/60 Ml Bottle PO Not Given [id number] [facility] Tramadol HCl 50 mg 09/06/20 21:17 Tramadol 50 Mg Tab PO Q12H PRN Pain Intake and Output 09/06/20 09/07/20 09/07/20 22:59 06:59 14:59 Output Total 20 Balance -20 Output: Emesis 20 Other: Voiding Method Toilet # Voids 0 2 Weight 80.286 kg 09/07/20 05:06 09/07/20 05:06
[2020-09-07] MEDS: ALBUTEROL HFA INHALER INHALATION PRN (12:43)
--- NOTE | 2020-09-07 13:58 | P.GSCN ---
History of Present Illness Consult date: 09/07/20 History of present illness: CHIEF COMPLAINT: Abnormal LFTs HISTORY OF PRESENT ILLNESS: This is a 55-year-old female with a known past history of necrotizing pancreatitis status post partial pancreatectomy at [facility] in 2009, end-stage renal disease on hemodialysis, infective endocarditis status post mitral valve repair in March 2020 at [facility], hypertension, hyperlipidemia, diabetes mellitus, nonalcoholic fatty liver disease, pulmonary hypertension and congestive heart failure. Patient came to the hospital after being told that her liver enzymes were slightly elevated on labs that were completed in the outpatient setting. P kalyani denies any abdominal pain. She does have nausea and vomiting but reports that this is chronic since she has been started on hemodialysis. She denies any change in bowel habits. Denies any fever or chills. Denies any urinary. Patient had abdominal ultrasound completed shows a small amount of ascites. Hydropic gallbladder with no gallstones or wall thickening. CBD dilated 1 cm correlate for distal CBD obstruction. Atrophy of the right kidney. Liver is enlarged and lobulated correlate for hepatomegaly and hepatocellular disease. Patient does have significantly elevated LFTs. Also note the patient had recently been on antibiotics for endocarditis. She was told to stop taking her antibiotics yesterday due to elevated liver enzymes. She will be evaluated by infectious disease. PAST MEDICAL HISTORY: See list. PAST SURGICAL HISTORY: See list. MEDICATIONS: See list. ALLERGIES: See list. SOCIAL HISTORY: No illicit drug use. REVIEW OF SYSTEMS: CONSTITUTIONAL: Denies fever or chills. HEENT: Denies blurred vision, vision changes, or eye pain. Denies hemoptysis CARDIOVASCULAR: Denies chest pain or pressure. RESPIRATORY: No shortness of breath. GASTROINTESTINAL: See HPI for pertinent findings HEMATOLOGIC: Denies bleeding disorders. GENITOURINARY: Denies any blood in urine or increased urinary frequency. SKIN: Denies pruitis. Denies rash. PHYSICAL EXAM: VITAL SIGNS: Reviewed GENERAL: Well-developed in no acute distress. HEENT: No sclera icterus. Extraocular movements grossly intact. Moist buccal mucosa. Head is atraumatic, normocephalic. No nasal drainage. ABDOMEN: Soft. Distended. nontender. Old, large healed midabdominal scar NEUROLOGIC: Alert and oriented. Cranial nerves II through XII grossly intact. LABORATORY DATA: WBC 4.75 hemoglobin 7.8 platelets 112 Sodium 136 creatinine 3.68 AST 605 ALT 669 alk phos 144 Lipase 52 IMAGING: Abdominal ultrasound completed shows a small amount of ascites. Hydropic gallbladder with no gallstones or wall thickening. CBD dilated 1 cm correlate for distal CBD obstruction. Atrophy of the right kidney. Liver is enlarged and lobulated correlate for hepatomegaly and hepatocellular disease. ASSESSMENT: 1. Elevated LFTs with suspicion of choledocholithiasis PLAN: -We'll await further input from GI service -Continue supportive care -Start patient on low-fat Physician Hoe Runner note has been reviewed by physician. Signing provider agrees with the documented findings, assessment, and plan of care. Past Medical History Past Medical History: Blood Disorder, Heart Failure, Diabetes Mellitus, Dialysis, Hyperlipidemia, Hypertension, Liver Disease, Pneumonia, Renal Disease Additional Past Medical History / Comment(s): Pt recently admitted to [facility] on 08/02/20 with fluid overload/swelling. Other hx: MRSA infection in blood with IV ABX while at dialysis until 09/06/20, bilateral cataracts, recently diagnosed with bilateral retinal hemorrhages, hypertriglyceridemia-induced acute pancreatitis, THEN necrotizing pancreatitis. hemodialysis for acute kidney injury 2 months in 2009 after pancreatic OR, 11/2015 diagnosed w/ chronic kidney disease-hemodialysis /-last hemodialysis 06/02/19, IDDM type II, past DKA, UTI, chronic anemia, frequent body cramping, occasional low back pain, carter's palsy x2, past L leg fx, possible liver disease-recent liver bx-results unknown per pt (2009). History of Any Multi-Drug Resistant Organisms: MRSA Year Discovered:: 06/10/20 MDRO Source:: Blood Past Surgical History: Cardiac Valve Replacement, Orthopedic Surgery, Uterine Ablation Additional Past Surgical History / Comment(s): 08/26/17 colonoscopy with polypectomy/bx, pancreatic resection at [facility] 2009, bone marrow biopsies X2-last one 05/19/16,. dialysis chest port x 2 with removals, Left arm shunt placement for dialysis - December 2015 and a revision done with shunt. Left forearm Vein Revision - October 2019, liver biopsy Past Anesthesia/Blood Transfusion Reactions: No Reported Reaction Additional Past Anesthesia/Blood Transfusion Reaction / Comm: Pt has received blood transfusions without reaction. Past Psychological History: No Psychological Hx Reported Additional Psychological History / Comment(s): Pt resides at her mother in laws home at this time with spouse. They are her mother in laws caretakers. She is independent. She uses no assistive device. She drives. She receives antibiotic infusion while at dialysis. Smoking Status: Never smoker Past Alcohol Use History: None Reported Additional Past Alcohol Use History / Comment(s): Patient is a lifelong nonsmoker. Past Drug Use History: None Reported - Past Family History Brother(s) Family Medical History: No Reported History Mother Family Medical History: Cancer Additional Family Medical History / Comment(s): . Father Family Medical History: Hypertension Additional Family Medical History / Comment(s): alcoholism Medications and Allergies Home Medications Medication Instructions Recorded Confirmed Type cloNIDine HCL [Catapres] 0.3 mg PO TID@0530,1300,1900 12/16/16 09/06/20 History Prochlorperazine [Compazine] 5 mg PO BID PRN 10/26/17 09/06/20 History INSULIN LISPRO (humaLOG) [humaLOG] 10 unit SQ AC-TID 07/12/18 09/06/20 History hydrALAZINE HCL [Apresoline] 100 mg PO QID 12/14/18 09/06/20 History HYDROcodone/APAP 7.5-325MG [Soldier 1 tab PO Q8H 11/08/19 09/06/20 History 7.5-325] Montelukast [Singulair] 10 mg PO HS@1900 11/08/19 09/06/20 History Insulin Glargine,Hum.rec.anlog See Protocol SQ HS 12/02/19 09/06/20 History [Jung Kat U-100] Albuterol Sulfate [Proair Hfa] 2 puff INHALATION RT-Q6H PRN 01/28/20 09/06/20 History Sildenafil [Revatio] 20 mg PO TID@0530,1300,1900 04/20/20 09/06/20 History traMADol HCL [Ultram] 50 mg PO Q12H PRN 05/13/20 09/06/20 History Ascorbic Acid [Vitamin C] 500 mg PO DAILY@0530 07/09/20 09/06/20 History Atorvastatin [Lipitor] 40 mg PO HS@1900 07/09/20 09/06/20 History Metoprolol Tartrate [Lopressor] 50 mg PO TID 07/09/20 09/06/20 History Gabapentin [Neurontin] 100 mg PO TID 08/02/20 09/06/20 History Omeprazole 20 mg PO BID 08/02/20 09/06/20 History Benzonatate [Tessalon Perles] 100 mg PO TID PRN 08/13/20 09/06/20 History Cyclobenzaprine [Flexeril] 5 mg PO HS 08/13/20 09/06/20 History Furosemide [Lasix] 40 mg PO DAILY 08/13/20 09/06/20 History diazePAM [Valium] 5 mg PO BID 08/13/20 09/06/20 History rOPINIRole HCL [Requip] 1 mg PO TID 08/13/20 09/06/20 History Calcium Carbonate [Tums] 500 mg PO TID PRN 30 Days #90 chew 09/05/20 09/06/20 Rx Sodium Polystyrene Sulfonate 15 gm PO SUMOWEFR 09/06/20 09/06/20 History [Kayexalate] Allergies Allergy/AdvReac Type Severity Reaction Status Date / Time Anesthetics - Amide Type - Allergy Unknown Verified 09/06/20 15:12 Select A Anesthetics - Andree Type- Allergy Unknown Verified 09/06/20 15:12 Parabens hydromorphone [From Dilaudid] Allergy Swelling Verified 09/06/20 15:12 ciprofloxacin [From Cipro] AdvReac AFFECTED Verified 09/06/20 15:12 EYESIGHT ciprofloxacin HCl AdvReac AFFECTED Verified 09/06/20 15:12 [From Cipro] EYESIGHT Iodinated Contrast Media AdvReac RENAL Verified 09/06/20 15:12 FAILURE Surgical - Exam Vital Signs Temp Pulse Resp BP Pulse Ox 97.9 F 70 16 161/75 100 09/06/20 12:44 09/06/20 12:44 09/06/20 12:44 09/06/20 12:44 09/06/20 12:44 Results - Labs 09/07/20 05:06 09/07/20 05:06 Abnormal Lab Results - Last 24 Hours (Table) 09/06/20 09/06/20 09/06/20 Range/Units 12:56 12:56 19:51 WBC 3.7 L (3.8-10.6) k/uL RBC 2.69 L (3.80-5.40) m/uL Hgb 8.4 L (11.4-16.0) gm/dL Hct 24.8 L (34.0-46.0) % MCV (80.0-97.0) fL MCHC (32.0-37.0) g/dL RDW 18.1 H (11.5-15.5) % Plt Count 122 L (150-450) k/uL Absolute Nucleated RBC (0.00-0.00) X 10*3/uL Immature Gran # (0.00-0.04) X 10*3/uL Lymphocytes # (0.90-5.00) X 10*3/uL Lymphocytes # (Manual) 0.30 L (1.0-4.8) k/uL Nucleated RBCs 6 H (0-0) /100 WBC NRBC/100 WBC Diff (0.0-0.0) /100 WBCS Sodium (137-145) mmol/L Chloride 93 L (98-107) mmol/L Carbon Dioxide 35 H (22-30) mmol/L BUN 21 H (7-17) mg/dL Creatinine 2.61 H (0.52-1.04) mg/dL Glucose 136 H (74-99) mg/dL POC Glucose (mg/dL) 276 H (75-99) mg/dL Delta Bilirubin 0.7 H (0.0-0.2) mg/dL AST 643 H (14-36) U/L ALT 641 H (4-34) U/L Alkaline Phosphatase 145 H (38-126) U/L C-Reactive Protein (<1.0) mg/dL Total Protein 6.2 L (6.3-8.2) g/dL Albumin 3.4 L (3.5-5.0) g/dL 09/07/20 09/07/20 09/07/20 Range/Units 05:06 05:06 08:05 WBC (3.8-10.6) k/uL RBC 2.57 L (3.80-5.40) m/uL Hgb 7.8 L (11.4-16.0) gm/dL Hct 25.3 L (34.0-46.0) % MCV 98.4 H (80.0-97.0) fL MCHC 30.8 L (32.0-37.0) g/dL RDW 17.7 H (11.5-15.5) % Plt Count 112 L (150-450) k/uL Absolute Nucleated RBC 0.15 H (0.00-0.00) X 10*3/uL Immature Gran # 0.16 H (0.00-0.04) X 10*3/uL Lymphocytes # 0.33 L (0.90-5.00) X 10*3/uL Lymphocytes # (Manual) (1.0-4.8) k/uL Nucleated RBCs (0-0) /100 WBC NRBC/100 WBC Diff 3.2 H (0.0-0.0) /100 WBCS Sodium 136 L (137-145) mmol/L Chloride 94 L (98-107) mmol/L Carbon Dioxide 32 H (22-30) mmol/L BUN 33 H (7-17) mg/dL Creatinine 3.68 H (0.52-1.04) mg/dL Glucose 223 H (74-99) mg/dL POC Glucose (mg/dL) 243 H (75-99) mg/dL Delta Bilirubin (0.0-0.2) mg/dL AST 605 H (14-36) U/L ALT 669 H (4-34) U/L Alkaline Phosphatase 144 H (38-126) U/L C-Reactive Protein (<1.0) mg/dL Total Protein (6.3-8.2) g/dL Albumin (3.5-5.0) g/dL 09/07/20 09/07/20 Range/Units 11:54 12:09 WBC (3.8-10.6) k/uL RBC (3.80-5.40) m/uL Hgb (11.4-16.0) gm/dL Hct (34.0-46.0) % MCV (80.0-97.0) fL MCHC (32.0-37.0) g/dL RDW (11.5-15.5) % Plt Count (150-450) k/uL Absolute Nucleated RBC (0.00-0.00) X 10*3/uL Immature Gran # (0.00-0.04) X 10*3/uL Lymphocytes # (0.90-5.00) X 10*3/uL Lymphocytes # (Manual) (1.0-4.8) k/uL Nucleated RBCs (0-0) /100 WBC NRBC/100 WBC Diff (0.0-0.0) /100 WBCS Sodium (137-145) mmol/L Chloride (98-107) mmol/L Carbon Dioxide (22-30) mmol/L BUN (7-17) mg/dL Creatinine (0.52-1.04) mg/dL Glucose (74-99) mg/dL POC Glucose (mg/dL) 120 H (75-99) mg/dL Delta Bilirubin (0.0-0.2) mg/dL AST (14-36) U/L ALT (4-34) U/L Alkaline Phosphatase (38-126) U/L C-Reactive Protein 7.6 H (<1.0) mg/dL Total Protein (6.3-8.2) g/dL Albumin (3.5-5.0) g/dL Diabetes panel 09/06/20 09/07/20 Range/Units 12:56 05:06 Sodium 138 136 L (137-145) mmol/L Potassium 3.5 4.2 (3.5-5.1) mmol/L Chloride 93 L 94 L (98-107) mmol/L Carbon Dioxide 35 H 32 H (22-30) mmol/L BUN 21 H 33 H (7-17) mg/dL Creatinine 2.61 H 3.68 H (0.52-1.04) mg/dL Glucose 136 H 223 H (74-99) mg/dL Calcium 8.8 8.7 (8.4-10.2) mg/dL AST 643 H 605 H (14-36) U/L ALT 641 H 669 H (4-34) U/L Alkaline Phosphatase 145 H 144 H (38-126) U/L Total Protein 6.2 L 6.5 (6.3-8.2) g/dL Albumin 3.4 L 3.5 (3.5-5.0) g/dL Calcium panel 09/06/20 09/07/20 Range/Units 12:56 05:06 Calcium 8.8 8.7 (8.4-10.2) mg/dL Albumin 3.4 L 3.5 (3.5-5.0) g/dL Pituitary panel 09/06/20 09/07/20 Range/Units 12:56 05:06 Sodium 138 136 L (137-145) mmol/L Potassium 3.5 4.2 (3.5-5.1) mmol/L Chloride 93 L 94 L (98-107) mmol/L Carbon Dioxide 35 H 32 H (22-30) mmol/L BUN 21 H 33 H (7-17) mg/dL Creatinine 2.61 H 3.68 H (0.52-1.04) mg/dL Glucose 136 H 223 H (74-99) mg/dL Calcium 8.8 8.7 (8.4-10.2) mg/dL Adrenal panel 09/06/20 09/07/20 Range/Units 12:56 05:06 Sodium 138 136 L (137-145) mmol/L Potassium 3.5 4.2 (3.5-5.1) mmol/L Chloride 93 L 94 L (98-107) mmol/L Carbon Dioxide 35 H 32 H (22-30) mmol/L BUN 21 H 33 H (7-17) mg/dL Creatinine 2.61 H 3.68 H (0.52-1.04) mg/dL Glucose 136 H 223 H (74-99) mg/dL Calcium 8.8 8.7 (8.4-10.2) mg/dL Total Bilirubin 1.0 1.0 (0.2-1.3) mg/dL AST 643 H 605 H (14-36) U/L ALT 641 H 669 H (4-34) U/L Alkaline Phosphatase 145 H 144 H (38-126) U/L Total Protein 6.2 L 6.5 (6.3-8.2) g/dL Albumin 3.4 L 3.5 (3.5-5.0) g/dL
--- NOTE | 2020-09-07 14:05 | P.CONS ---
History of Present Illness - Reason for Consult Consult date: 09/07/20 Elevated LFTS Requesting physician: David Bragg - Chief Complaint Abnormal labs - History of Present Illness This is a pleaseant 55-year-old white female with multiple medical comorbidities including prior hospitalization for necrotizing pancreatitis, diabetes mellitus, chronic anemia, Hoffman's palsy, chronic liver disease with previous liver biopsy at 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 in 2009, recent cardiac valve replacement, end-stage renal disease on hemodialysis who presented to emergency department after going for hemodialysis and having abnormal labs. Patient states she was told to come to the emergency department with elevated liver enzymes. Patient currently follows up with nephrology and has hemodialysis 3 times weekly. Patient recently underwent mitral valve replacement with a tissue valve in 03/30 at the [facility]. Previously she had been worked up at [facility] for possible kidney transplants but has currently established care with [facility]. The patient has been hospitalized previously for necrotizing pancreatitis. She also has a history of liver disease, she has no significant history of alcohol use in the past or currently and believes it is secondary to nonalcoholic fatty liver disease/nonalcoholic steatohepatitis. She has recently been seen at [facility] for her liver disease prior to her heart surgery and was told she didn't need any further workup or follow-up. On previous admission she was also noted to have small amount of ascites, unable to have enough for paracentesis. She denies any abdominal pain, current nausea or vomiting, however states that she has chronic nausea and vomiting, which she states usually his dry heaves. On current presentation she was found to have mild ascites and elevated enzymes. She is currently on Lasix 40 mg daily. She does report making a small amount of urine. Admission laboratory evaluation significant for hemoglobin 8.4, platelet count 122,000, total bilirubin 0.1, alkaline phosphatase is 145, AST 643 and ALT 645. Shouldn't do states she was recently on antibiotics IV and by mouth. She is unsure of which antibiotics. Looking back at her previous discharge paperwork she was on vancomycin IV, unsure of what oral antibiotic. Yesterday was her last dose of IV antibiotics and no longer on any oral antibiotics. Ultrasound of the abdomen shows large mildly lobulated contour liver. Small amount of ascites. Hydropic gallbladder with no gallstones or wall thickening. CBD dilated at 1 cm correlate for distal CBD obstruction. Atrophy of the right kidney. Review of Systems REVIEW OF SYSTEMS: CARDIOPULMONARY: No chest pain or shortness of breath. Gastrointestinal: No abdominal pain, diarrhea, or constipation. Patient states she has frequent nausea and vomiting which she states is nonbilious, no blood noted, and mostly dry heaves. GENITOURINARY: No dysuria or hematuria. MUSCULOSKELETAL: Unremarkable. SKIN: Unremarkable. ENDOCRINE: Unremarkable. PSYCHIATRIC: Unremarkable. NEUROLOGY: Unremarkable. ENT: Vision unremarkable. CONSTITUTIONAL: No recent weight loss. No fever, chills, night sweats. Past Medical History Past Medical History: Blood Disorder, Heart Failure, Diabetes Mellitus, Dialysis, Hyperlipidemia, Hypertension, Liver Disease, Pneumonia, Renal Disease Additional Past Medical History / Comment(s): Pt recently admitted to [facility] on 08/02/20 with fluid overload/swelling. Other hx: MRSA infection in blood with IV ABX while at dialysis until 09/06/20, bilateral cataracts, recently diagnosed with bilateral retinal hemorrhages, hypertriglyceridemia-induced acute pancreatitis, THEN necrotizing pancreatitis. hemodialysis for acute kidney injury 2 months in 2009 after pancreatic OR, 11/2015 diagnosed w/ chronic kidney disease-hemodialysis -last hemodialysis 06/02/19, IDDM type II, past DKA, UTI, chronic anemia, frequent body cramping, occasional low back pain, hoffman's palsy x2, past L leg fx, possible liver disease-recent liver bx-results unknown per pt (2009). History of Any Multi-Drug Resistant Organisms: MRSA Year Discovered:: 06/10/20 MDRO Source:: Blood Past Surgical History: Cardiac Valve Replacement, Orthopedic Surgery, Uterine Ablation Additional Past Surgical History / Comment(s): 08/26/17 colonoscopy with polypectomy/bx, pancreatic resection at [facility] 2009, bone marrow biopsies X2-last one 05/19/16,. dialysis chest port x 2 with removals, Left arm shunt placement for dialysis - December 2015 and a revision done with shunt. Left forearm Vein Revision - October 2019, liver biopsy Past Anesthesia/Blood Transfusion Reactions: No Reported Reaction Additional Past Anesthesia/Blood Transfusion Reaction / Comm: Pt has received blood transfusions without reaction. Past Psychological History: No Psychological Hx Reported Additional Psychological History / Comment(s): Pt resides at her mother in laws home at this time with spouse. They are her mother in laws caretakers. She is independent. She uses no assistive device. She drives. She receives antibiotic infusion while at dialysis. Smoking Status: Never smoker Past Alcohol Use History: None Reported Additional Past Alcohol Use History / Comment(s): Patient is a lifelong nonsmoker. Past Drug Use History: None Reported - Past Family History Brother(s) Family Medical History: No Reported History Mother Family Medical History: Cancer Additional Family Medical History / Comment(s): . Father Family Medical History: Hypertension Additional Family Medical History / Comment(s): alcoholism Medications and Allergies Home Medications Medication Instructions Recorded Confirmed Type cloNIDine HCL [Catapres] 0.3 mg PO TID@0530,1300,1900 12/16/16 09/06/20 History Prochlorperazine [Compazine] 5 mg PO BID PRN 10/26/17 09/06/20 History INSULIN LISPRO (humaLOG) [humaLOG] 10 unit SQ AC-TID 07/12/18 09/06/20 History hydrALAZINE HCL [Apresoline] 100 mg PO QID 12/14/18 09/06/20 History HYDROcodone/APAP 7.5-325MG [[place] 1 tab PO Q8H 11/08/19 09/06/20 History 7.5-325] Montelukast [Singulair] 10 mg PO HS@1900 11/08/19 09/06/20 History Insulin Glargine,Hum.rec.anlog See Protocol SQ HS 12/02/19 09/06/20 History [Basaglar Kwsangitapen U-100] Albuterol Sulfate [Proair Hfa] 2 puff INHALATION RT-Q6H PRN 01/28/20 09/06/20 History Sildenafil [Revatio] 20 mg PO TID@0530,1300,1900 04/20/20 09/06/20 History traMADol HCL [Ultram] 50 mg PO Q12H PRN 05/13/20 09/06/20 History Ascorbic Acid [Vitamin C] 500 mg PO DAILY@0530 07/09/20 09/06/20 History Atorvastatin [Lipitor] 40 mg PO HS@1900 07/09/20 09/06/20 History Metoprolol Tartrate [Lopressor] 50 mg PO TID 07/09/20 09/06/20 History Gabapentin [Neurontin] 100 mg PO TID 08/02/20 09/06/20 History Omeprazole 20 mg PO BID 08/02/20 09/06/20 History Benzonatate [Tessalon Perles] 100 mg PO TID PRN 08/13/20 09/06/20 History Cyclobenzaprine [Flexeril] 5 mg PO HS 08/13/20 09/06/20 History Furosemide [Lasix] 40 mg PO DAILY 08/13/20 09/06/20 History diazePAM [Valium] 5 mg PO BID 08/13/20 09/06/20 History rOPINIRole HCL [Requip] 1 mg PO TID 08/13/20 09/06/20 History Calcium Carbonate [Tums] 500 mg PO TID PRN 30 Days #90 chew 09/05/20 09/06/20 Rx Sodium Polystyrene Sulfonate 15 gm PO SUMOWEFR 09/06/20 09/06/20 History [Kayexalate] Allergies Allergy/AdvReac Type Severity Reaction Status Date / Time Anesthetics - Amide Type - Allergy Unknown Verified 09/06/20 15:12 Select A Anesthetics - Andree Type- Allergy Unknown Verified 09/06/20 15:12 Parabens hydromorphone [From Dilaudid] Allergy Swelling Verified 09/06/20 15:12 ciprofloxacin [From Cipro] AdvReac AFFECTED Verified 09/06/20 15:12 EYESIGHT ciprofloxacin HCl AdvReac AFFECTED Verified 09/06/20 15:12 [From Cipro] EYESIGHT Iodinated Contrast Media AdvReac RENAL Verified 09/06/20 15:12 FAILURE Physical Exam Vitals: Vital Signs Temp Pulse Pulse Resp BP BP Pulse Ox 09/07/20 07:00 98.7 F 87 16 152/83 93 L 09/07/20 02:20 18 09/07/20 02:00 99.2 F 79 18 146/76 97 09/06/20 20:05 87 18 09/06/20 19:45 99.2 F 87 18 175/77 96 09/06/20 18:06 99 F 86 18 152/61 100 Intake and Output 09/06/20 09/07/20 09/07/20 22:59 06:59 14:59 Output Total 20 Balance -20 Output: Emesis 20 Other: Voiding Method Toilet # Voids 0 2 Weight 80.286 kg General appearance: The patient is alert, oriented, appears in no acute distress. HET: Head is normocephalic and atraumatic. Conjunctiva pink. Sclera anicteric. Neck: Supple without lymphadenopathy. Abdomen: Soft, nontender, nondistended with bowel sounds. No guarding or rigidity. Extremities: Normal skin color and turgor. No pedal edema Skin: No rashes, no jaundice Neurological: No focal deficits. Alert and oriented 3. Results Results: Ultrasound of abdomen: Small amount of ascites, hydropic gallbladder with no gallstones or wall thickening. CBD dilated at 1 cm correlate for distal CBD obstruction. Atrophy of the right kidney. Liver is enlarged and lobulated correlate for hepatomegaly has hepatocellular disease CBC & Chem 7: 09/07/20 05:06 09/07/20 05:06 Labs: Abnormal Lab Results - Last 24 Hours (Table) 09/06/20 09/06/20 09/06/20 Range/Units 12:56 12:56 19:51 WBC 3.7 L (3.8-10.6) k/uL RBC 2.69 L (3.80-5.40) m/uL Hgb 8.4 L (11.4-16.0) gm/dL Hct 24.8 L (34.0-46.0) % MCV (80.0-97.0) fL MCHC (32.0-37.0) g/dL RDW 18.1 H (11.5-15.5) % Plt Count 122 L (150-450) k/uL Absolute Nucleated RBC (0.00-0.00) X 10*3/uL Immature Gran # (0.00-0.04) X 10*3/uL Lymphocytes # (0.90-5.00) X 10*3/uL Lymphocytes # (Manual) 0.30 L (1.0-4.8) k/uL Nucleated RBCs 6 H (0-0) /100 WBC NRBC/100 WBC Diff (0.0-0.0) /100 WBCS Sodium (137-145) mmol/L Chloride 93 L (98-107) mmol/L Carbon Dioxide 35 H (22-30) mmol/L BUN 21 H (7-17) mg/dL Creatinine 2.61 H (0.52-1.04) mg/dL Glucose 136 H (74-99) mg/dL POC Glucose (mg/dL) 276 H (75-99) mg/dL Delta Bilirubin 0.7 H (0.0-0.2) mg/dL AST 643 H (14-36) U/L ALT 641 H (4-34) U/L Alkaline Phosphatase 145 H (38-126) U/L C-Reactive Protein (<1.0) mg/dL Total Protein 6.2 L (6.3-8.2) g/dL Albumin 3.4 L (3.5-5.0) g/dL 09/07/20 09/07/20 09/07/20 Range/Units 05:06 05:06 08:05 WBC (3.8-10.6) k/uL RBC 2.57 L (3.80-5.40) m/uL Hgb 7.8 L (11.4-16.0) gm/dL Hct 25.3 L (34.0-46.0) % MCV 98.4 H (80.0-97.0) fL MCHC 30.8 L (32.0-37.0) g/dL RDW 17.7 H (11.5-15.5) % Plt Count 112 L (150-450) k/uL Absolute Nucleated RBC 0.15 H (0.00-0.00) X 10*3/uL Immature Gran # 0.16 H (0.00-0.04) X 10*3/uL Lymphocytes # 0.33 L (0.90-5.00) X 10*3/uL Lymphocytes # (Manual) (1.0-4.8) k/uL Nucleated RBCs (0-0) /100 WBC NRBC/100 WBC Diff 3.2 H (0.0-0.0) /100 WBCS Sodium 136 L (137-145) mmol/L Chloride 94 L (98-107) mmol/L Carbon Dioxide 32 H (22-30) mmol/L BUN 33 H (7-17) mg/dL Creatinine 3.68 H (0.52-1.04) mg/dL Glucose 223 H (74-99) mg/dL POC Glucose (mg/dL) 243 H (75-99) mg/dL Delta Bilirubin (0.0-0.2) mg/dL AST 605 H (14-36) U/L ALT 669 H (4-34) U/L Alkaline Phosphatase 144 H (38-126) U/L C-Reactive Protein (<1.0) mg/dL Total Protein (6.3-8.2) g/dL Albumin (3.5-5.0) g/dL 09/07/20 09/07/20 Range/Units 11:54 12:09 WBC (3.8-10.6) k/uL RBC (3.80-5.40) m/uL Hgb (11.4-16.0) gm/dL Hct (34.0-46.0) % MCV (80.0-97.0) fL MCHC (32.0-37.0) g/dL RDW (11.5-15.5) % Plt Count (150-450) k/uL Absolute Nucleated RBC (0.00-0.00) X 10*3/uL Immature Gran # (0.00-0.04) X 10*3/uL Lymphocytes # (0.90-5.00) X 10*3/uL Lymphocytes # (Manual) (1.0-4.8) k/uL Nucleated RBCs (0-0) /100 WBC NRBC/100 WBC Diff (0.0-0.0) /100 WBCS Sodium (137-145) mmol/L Chloride (98-107) mmol/L Carbon Dioxide (22-30) mmol/L BUN (7-17) mg/dL Creatinine (0.52-1.04) mg/dL Glucose (74-99) mg/dL POC Glucose (mg/dL) 120 H (75-99) mg/dL Delta Bilirubin (0.0-0.2) mg/dL AST (14-36) U/L ALT (4-34) U/L Alkaline Phosphatase (38-126) U/L C-Reactive Protein 7.6 H (<1.0) mg/dL Total Protein (6.3-8.2) g/dL Albumin (3.5-5.0) g/dL Assessment and Plan (1) Transaminitis Narrative/Plan: History 55-year-old white female who presented to the emergency room after having labs done for her hemodialysis which showed elevated liver enzymes. She has a past history of chronic liver disease, likely related to fatty liver. She is followed up with Dr. Guaman in the past in 2017 and also at [facility] recently prior to her her valve replacement. She has multiple comor bidities including end-stage renal disease on hemodialysis, recent heart valve replacement, pancreatectomy, and diabetes mellitus. She came in without any complaints of abdominal pain, she states she does get nausea and vomiting which he describes as mostly dry heaves, however this is chronic. Her prior liver enzymes were mildly elevated, she had significant elevation in her liver enzymes on admission with her total bilirubin being 1.0, alkaline phosphatase 145, AST 643, ALT 641. She recently was on IV antibiotics for bacteremia IV vancomycin which was discontinued yesterday and also states she was on oral antibiotic however she is unsure of which one it was. Ultrasound of the abdomen showed small amount of ascites, hydropic gallbladder with no gallstones or wall thickening. CBD dilated at 1 cm correlate first distal CBD obstruction, atropine the right kidney, and the heart is enlarged and lobulated correlate for hepatomegaly and hepatocellular disease. Likely dealing with Medication induced hepatitis superimposed on chronic liver disease. Current Visit: Yes Status: Acute Code(s): R74.01 - ELEVATION OF LEVELS OF LIVER TRANSAMINASE LEVELS SNOMED Code(s): 051629499 (2) ESRD (end stage renal disease) on dialysis Narrative/Plan: Neurology following patient closely Current Visit: Yes Status: Acute Code(s): N18.6 - END STAGE RENAL DISEASE; Z99.2 - DEPENDENCE ON RENAL DIALYSIS SNOMED Code(s): 123638153 (3) Nausea and vomiting Narrative/Plan: Controlled Current Visit: Yes Status: Acute Code(s): R11.2 - NAUSEA WITH VOMITING, UNSPECIFIED SNOMED Code(s): 45548113 (4) Chronic liver disease Current Visit: No Status: Acute Code(s): K76.9 - LIVER DISEASE, UNSPECIFIED SNOMED Code(s): 502918891 Plan: 1. Continue symptomatic and supportive care 2. Diet as tolerated 3. Repeat daily CBC, CMP 4. Hemodialysis as ordered per nephrology 5. Avoid hepatotoxins 6. Elevated of DTs likely medication induced hepatitis superimposed on nonalcoholic fatty liver disease Thank you for this consultation, we will continue to follow Dr. Andrei Guaman I agree with the dictator's note, documented as a scribe by Alesia Garcia.
--- NOTE | 2020-09-07 14:23 | P.NPCON ---
History of Present Illness - Reason for Consult end stage renal disease - History of Present Illness Reason for consultation: End-stage renal disease History of present illness: Patient is a 55-year-old female seen in renal consultation for end-stage renal disease. She is maintained on hemodialysis on Thursday schedule. Patient presented to the hospital due to elevated liver enzymes. Patient states she was called by the [facility] and was advised to go to the hospital. She was also advised to stop her antibiotics. Patient is taking rifampin as well as daptomycin outpatient for endocarditis. She denies chest pain or shortness of breath. She did go to hemodialysis yesterday. AST was 605 and ALT was 669 on admission. Abdominal ultrasound revealed small amount of ascites as well as common bile duct dilation. Potential cholecystectomy planned. Vital signs are stable. General: The patient appeared well nourished and normally developed. HEENT: Head exam is unremarkable. Neck is without jugular venous distension. LUNGS: Breath sounds decreased. HEART: Rate and Rhythm are regular. ABDOMEN: Abdominal distention noted. EXTREMITITES: 2+ edema. Past Medical History Past Medical History: Blood Disorder, Heart Failure, Diabetes Mellitus, Dialysis, Hyperlipidemia, Hypertension, Liver Disease, Pneumonia, Renal Disease Additional Past Medical History / Comment(s): Pt recently admitted to [facility] on 08/02/20 with fluid overload/swelling. Other hx: MRSA infection in blood with IV ABX while at dialysis until 09/06/20, bilateral cataracts, recently diagnosed with bilateral retinal hemorrhages, hypertriglyceridemia-induced acute pancreatitis, THEN necrotizing pancreatitis. hemodialysis for acute kidney injury 2 months in 2009 after pancreatic OR, 11/2015 diagnosed w/ chronic kidney disease-hemodialysis -last hemodialysis 06/02/19, IDDM type II, past DKA, UTI, chronic anemia, frequent body cramping, occasional low back pain, carter's palsy x2, past L leg fx, possible liver disease-recent liver bx-results unknown per pt (2009). History of Any Multi-Drug Resistant Organisms: MRSA Date of last positivie culture/infection: 06/10/20 MDRO Source:: Blood Past Surgical History: Cardiac Valve Replacement, Orthopedic Surgery, Uterine Ablation Additional Past Surgical History / Comment(s): 08/26/17 colonoscopy with polypectomy/bx, pancreatic resection at [facility] 2009, bone marrow biopsies X2-last one 05/19/16,. dialysis chest port x 2 with removals, Left arm shunt placement for dialysis - December 2015 and a revision done with shunt. Left forearm Vein Revision - October 2019, liver biopsy Past Anesthesia/Blood Transfusion Reactions: No Reported Reaction Additional Past Anesthesia/Blood Transfusion Reaction / Comment(s): Pt has received blood transfusions without reaction. Past Psychological History: No Psychological Hx Reported Additional Psychological History / Comment(s): Pt resides at her mother in laws home at this time with spouse. They are her mother in laws caretakers. She is independent. She uses no assistive device. She drives. She receives antibiotic infusion while at dialysis. Smoking Status: Never smoker Past Alcohol Use History: None Reported Additional Past Alcohol Use History / Comment(s): Patient is a lifelong nonsmoker. Past Drug Use History: None Reported - Past Family History Brother(s) Family Medical History: No Reported History Mother Family Medical History: Cancer Additional Family Medical History / Comment(s): . Father Family Medical History: Hypertension Additional Family Medical History / Comment(s): alcoholism Medications and Allergies Home Medications Medication Instructions Recorded Confirmed Type cloNIDine HCL [Catapres] 0.3 mg PO TID@0530,1300,1900 12/16/16 09/06/20 History Prochlorperazine [Compazine] 5 mg PO BID PRN 10/26/17 09/06/20 History INSULIN LISPRO (humaLOG) [humaLOG] 10 unit SQ AC-TID 07/12/18 09/06/20 History hydrALAZINE HCL [Apresoline] 100 mg PO QID 12/14/18 09/06/20 History HYDROcodone/APAP 7.5-325MG [[place] 1 tab PO Q8H 11/08/19 09/06/20 History 7.5-325] Montelukast [Singulair] 10 mg PO HS@1900 11/08/19 09/06/20 History Insulin Glargine,Hum.rec.anlog See Protocol SQ HS 12/02/19 09/06/20 History [Basaglar Kwikpen U-100] Albuterol Sulfate [Proair Hfa] 2 puff INHALATION RT-Q6H PRN 01/28/20 09/06/20 History Sildenafil [Revatio] 20 mg PO TID@0530,1300,1900 04/20/20 09/06/20 History traMADol HCL [Ultram] 50 mg PO Q12H PRN 05/13/20 09/06/20 History Ascorbic Acid [Vitamin C] 500 mg PO DAILY@0530 07/09/20 09/06/20 History Atorvastatin [Lipitor] 40 mg PO HS@1900 07/09/20 09/06/20 History Metoprolol Tartrate [Lopressor] 50 mg PO TID 07/09/20 09/06/20 History Gabapentin [Neurontin] 100 mg PO TID 08/02/20 09/06/20 History Omeprazole 20 mg PO BID 08/02/20 09/06/20 History Benzonatate [Tessalon Perles] 100 mg PO TID PRN 08/13/20 09/06/20 History Cyclobenzaprine [Flexeril] 5 mg PO HS 08/13/20 09/06/20 History Furosemide [Lasix] 40 mg PO DAILY 08/13/20 09/06/20 History diazePAM [Valium] 5 mg PO BID 08/13/20 09/06/20 History rOPINIRole HCL [Requip] 1 mg PO TID 08/13/20 09/06/20 History Calcium Carbonate [Tums] 500 mg PO TID PRN 30 Days #90 chew 09/05/20 09/06/20 Rx Sodium Polystyrene Sulfonate 15 gm PO SUMOWEFR 09/06/20 09/06/20 History [Kayexalate] Allergies Allergy/AdvReac Type Severity Reaction Status Date / Time Anesthetics - Amide Type - Allergy Unknown Verified 09/06/20 15:12 Select A Anesthetics - Andree Type- Allergy Unknown Verified 09/06/20 15:12 Parabens hydromorphone [From Dilaudid] Allergy Swelling Verified 09/06/20 15:12 ciprofloxacin [From Cipro] AdvReac AFFECTED Verified 09/06/20 15:12 EYESIGHT ciprofloxacin HCl AdvReac AFFECTED Verified 09/06/20 15:12 [From Cipro] EYESIGHT Iodinated Contrast Media AdvReac RENAL Verified 09/06/20 15:12 FAILURE Physical Exam Vitals: Vital Signs Temp Pulse Pulse Resp BP BP Pulse Ox 09/07/20 07:00 98.7 F 87 16 152/83 93 L 09/07/20 02:20 18 09/07/20 02:00 99.2 F 79 18 146/76 97 09/06/20 20:05 87 18 09/06/20 19:45 99.2 F 87 18 175/77 96 09/06/20 18:06 99 F 86 18 152/61 100 Intake and Output 09/06/20 09/07/20 09/07/20 22:59 06:59 14:59 Output Total 20 Balance -20 Output: Emesis 20 Other: Voiding Method Toilet # Voids 0 2 Weight 80.286 kg Results - Lab Results Most recent lab results Calcium 8.7 mg/dL (8.4-10.2) 09/07/20 05:06 09/07/20 05:06 09/07/20 05:06 Assessment and Plan Plan: Assessment: 1. End-stage renal disease maintained on hemodialysis on Thursday schedule. 2. Volume overload. 3. Anemia of chronic kidney disease. 4. Endocarditis. Maintained on daptomycin and rifampin outpatient. However she was told to stop her antibiotics yesterday due to elevated liver enzymes. Infectious disease consulted. 5. Common bile duct dilation. Potential cholecystectomy today. 6. Chronic kidney disease mineral bone disease. 7. Hypertension with chronic kidney disease. Stable. 8. Diabetes mellitus. 9. Chronic diastolic CHF with severe tricuspid regurgitation and pulmonary hypertension. Plan: Short hemodialysis treatment today mostly for UF. Another treatment tomorrow per her outpatient schedule. Check phosphorus level. Check iron studies. Add Aranesp. Thank you for the consultation. I will continue to follow patient with you during her hospital stay.
[2020-09-07] MEDS ORDERED: DARBEPOETIN ALFA 40 MCG/0.4 ML SYRINGE SQ SCH (14:30)
[2020-09-07 17:08] LABS: Glucose,Whole Blood 130 mg/dL (75-99)
[2020-09-07] MEDS ORDERED: ATORVASTATIN 40 MG TAB PO SCH (19:00)
[2020-09-07] MEDS: MONTELUKAST 10 MG TAB PO SCH (19:39)
[2020-09-07] MEDS: CYCLOBENZAPRINE 5 MG TAB PO SCH (19:40)
[2020-09-07 20:51] LABS: Glucose,Whole Blood 151 mg/dL (75-99)
[2020-09-07] MEDS: ZOLPIDEM 5 MG TAB PO PRN (21:05)
[2020-09-07] MEDS: NON FORMULARY DRUG (Insulin Glargine,Hum.Rec.Anlog [Basaglar Kwikpen U-100] 100 UNIT/ML In SQ SCH (21:17)
--- NOTE | 2020-09-07 23:44 | CONS ---
CONSULTATION DATE OF SERVICE: 09/07/2020 REASON FOR CONSULTATION: Endocarditis. 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 The patient is currently getting treatment with daptomycin and rifampin in the outpatient setting that apparently was scheduled to complete on 09/11/2020. The patient did have blood work done in the outpatient setting and was noted to have elevated liver enzymes. The patient was advised by her family physician to stop taking rifampin and daptomycin and to present to the hospital for further evaluation. The patient denies having any fever or any chills. The patient is breathing comfortably. The patient has been complaining of pain to the right upper quadrant area, more of a dull aching, intensity of 3 to 4 out of 10, no radiation, with some associated nausea and vomiting, but no diarrhea. No fever. With these symptoms, the patient was evaluated by the ER physician. On arrival in the ER the patient did have an ultrasound of the upper quadrant which shows a small amount of ascites, hydropic gallbladder with no gallstone or wall thickening. CBD was dilated; correlated for distal CBD obstruction. Liver was enlarged and lobulated; correlate for hepatomegaly. The patient has been evaluated by General Surgery as well as nephrology services. Infectious Disease was consulted for management of antibiotic therapy. The patient has been afebrile since being admitted to the hospital. She is currently on room air. REVIEW OF SYSTEMS: Positive points have been mentioned in the HPI. Rest of the systems are negative. PAST MEDICAL HISTORY: End-stage renal disease, on hemodialysis, endocarditis, diabetes mellitus, hyperlipidemia, hypertension, pneumonia. PAST SURGICAL HISTORY: Colonoscopy with polypectomy, pancreatic resection, bone marrow biopsy, dialysis catheter placement, and heart valve replacement at [facility]. SOCIAL HISTORY: No history of smoking, drinking or drug use. FAMILY HISTORY: Mother with history of cancer. Father with history of hypertension ALLERGIES: CIPROFLOXACIN, HYDROMORPHONE, ANESTHETICS. MEDICATIONS: The patient is currently on [place], Ventolin, vitamin C, Tessalon Perles, calcium, Catapres, Flexeril, Aranesp, Valium, Lasix, Neurontin, hydralazine, NovoLog, Lopressor, Singulair, Narcan, Zofran, Protonix, Compazine. PHYSICAL EXAMINATION: Blood pressure is 137/71 with a pulse of 70, temperature 98.7. She is 98% on room air. General description is a middle-aged female lying in bed in no distress. No tachypnea or accessory muscle of respiration use. HEENT: Examination shows slight pallor. No scleral icterus. Oral mucous membrane is dry. NECK: Trachea is central. No thyromegaly. LUNGS: Unlabored breathing. Clear to auscultation anteriorly. No wheeze or crackle. HEART: S1, S2. Regular rate and rhythm. E ABDOMEN: Soft. Slightly distended. No guarding or rigidity. EXTREMITIES: No edema of the feet. SKIN EXAMINATION: No rash or mass palpable. Neurologically the patient is awake, alert, oriented x3. Mood and affect normal. LABS: Hemoglobin 8.4, white count 3.3, repeat is 4.75, BUN of 21, creatinine 2.61. AST was 643, down to 605. ALT was 641; repeat is 669. CK is 142. DIAGNOSTIC IMPRESSION/PLAN: Patient admitted with hospital with nausea, vomiting, some right upper quadrant abdominal pain in this patient who did have elevated liver enzymes, more likely related to rifampin in this patient who does have a complicated history of endocarditis requiring surgery and multiple courses of antibiotic therapy. PLAN: 1. I agree with discontinuation of the rifampin. 2. However, daptomycin can be continued. It is not as hepatotoxic as the rifampin and liver enzymes need to be monitored closely. 3. Will check and LFTs daily. 4. We will follow clinical condition and culture to further adjust medication if needed. Thank you for this consultation. Will follow this patient along with you. MMODL / IJN: [id number] /
[2020-09-08 02:43] LABS: % Iron Saturation 28.45 (12.00-45.00); Iron 66 ug/dL (50-170); Total Iron Binding Capacity 232 ug/dL (228-460)
[2020-09-08] MEDS: ONDANSETRON 4 MG/2 ML VIAL IVP PRN ×2 (03:47→19:46)
[2020-09-08] MEDS: MORPHINE SULFATE 2 MG/ML SYRINGE IVP PRN ×4 (03:47→21:57)
[2020-09-08 04:22] LABS: Ferritin >16500.0 ng/mL (22.0-322.0)
[2020-09-08] MEDS: SILDENAFIL 20 MG TAB PO SCH ×3 (05:29→19:48)
[2020-09-08] MEDS: HYDROcodone/APAP 7.5-325MG 1 EACH TAB PO SCH ×3 (05:29→19:48)
[2020-09-08] MEDS: hydrALAZINE HCL 50 MG TAB PO SCH ×4 (05:29→19:47)
[2020-09-08] MEDS: cloNIDine HCL 0.1 MG TAB PO SCH ×3 (05:29→19:47)
[2020-09-08] MEDS: ASCORBIC ACID 500 MG TAB PO SCH (05:30)
[2020-09-08 07:23] LABS: Glucose,Whole Blood 311 mg/dL (75-99)
[2020-09-08] MEDS: diazePAM 5 MG TAB PO SCH ×2 (08:17→19:47)
[2020-09-08] MEDS: PANTOPRAZOLE 40 MG TABLET PO SCH (08:17)
[2020-09-08] MEDS: FUROSEMIDE 40 MG TAB PO SCH (08:17)
[2020-09-08] MEDS: INSULIN ASPART (NovoLOG) 100 UNIT/ML VIAL SQ SCH ×3 (08:17→17:16)
[2020-09-08] MEDS: GABAPENTIN 100 MG CAP PO SCH ×3 (08:17→19:47)
[2020-09-08] MEDS: METOPROLOL TARTRATE 50 MG TAB PO SCH ×3 (08:17→19:47)
[2020-09-08] MEDS: ALBUTEROL HFA INHALER INHALATION PRN ×2 (08:36→12:35)
[2020-09-08 09:11] LABS: HCT 27.4 % (37.2-46.3); HGB 8.3 g/dL (12.0-15.0); MCH 30.4 pg (27.0-32.0); MCHC 30.3 g/dL (32.0-37.0); MCV 100.4 fL (80.0-97.0); Mean Platelet Volume 10.3 fL (9.5-12.2); Platelet Count 122 X 10*3/uL (140-440); RBC 2.73 X 10*6/uL (4.10-5.20); RDW 18.3 % (11.5-14.5); WBC 3.72 X 10*3/uL (4.50-10.00)
[2020-09-08 10:24] LABS: African American GFR (CKD) 13.5 (60.0-200.0); Albumin 3.9 g/dL (3.80-4.90); Albumin/Globulin Ratio 1.44 (1.60-3.17); Anion Gap 16.3 mmol/L (4.00-12.00); BUN/Creat Ratio 8.05 Ratio (12.00-20.00); Calcium 9.1 mg/dL (8.7-10.3); Carbon Dioxide 27.7 mmol/L (21.6-31.8); Globulin 2.7 g/dL (1.6-3.3); Non-African American GFR(CKD) 11.7 (60.0-200.0); Phosphorus 4.9 mg/dL (2.4-5.1); Potassium 4.4 mmol/L (3.5-5.5); Total Bilirubin 0.7 mg/dL (0.2-1.2); Total Protein 6.6 g/dL (6.2-8.2)
[2020-09-08 10:39] LABS: Basophils # (M) 0 X 10*3/uL (0.00-0.10); Eosinophils # (M) 0.04 X 10*3/uL (0.04-0.35); Lymphocytes # (M) 0.07 X 10*3/uL (0.90-5.00); Metamyelocytes % 1 % (0-0); Monocytes # (M) 0.26 X 10*3/uL (0.20-1.00); Neutrophils # (M) 3.31 X 10*3/uL (2.00-8.90); Neutrophils % (M) 89 %
[2020-09-08 11:52] LABS: Glucose,Whole Blood 242 mg/dL (75-99)
--- NOTE | 2020-09-08 12:12 | PN ---
PROGRESS NOTE DATE OF SERVICE: 09/08/2020 INTERVAL HISTORY: Patient is a 55-year-old pleasant white female admitted to the hospital because of elevated serum transaminases that were noted in the outpatient setting. Her serum ALT and AST were in the range of 600. The patient denies any abdominal pain. 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 She is being treated with daptomycin and rifampin in the outpatient setting. She had routine labs done and was noted to have elevated serum transaminases and hence was admitted to the hospital for further evaluation. The patient does complain of intermittent right-sided abdominal pain but no nausea or vomiting. No fever, chills, or night sweats. She did have ultrasound of the abdomen done in the emergency room that showed small amount of ascites and mild dilation of the common bile duct. Also there was lobulated appearing liver suspicious for liver cirrhosis. This morning she is feeling better. She reports no nausea, vomiting. She still has mild discomfort in the right upper quadrant area. PHYSICAL EXAMINATION: GENERAL: She appears comfortable. No apparent distress. VITAL SIGNS: Stable. Blood pressure is 133/86, pulse rate 82, temperature 98. HEENT: Examination unremarkable. Conjunctivae are pink. Sclerae anicteric. Oral cavity no lesions. NECK: No JVD or lymph node enlargement. CHEST: Clear to auscultation. HEART: Regular rate and rhythm. ABDOMEN: Soft. Bowel sounds are positive. Minimal tenderness in the right side of the abdomen. EXTREMITIES: No pedal edema noted. NEURO: She is alert and oriented x3. No focal deficits. LABS: From today, CMP is still pending. WBC 3.7, hemoglobin 8.3, platelets 122. IMPRESSION: Elevated serum transaminases noted in the outpatient setting with serum ALT and AST in the range of 600. On review of her old medical records, her serum transaminases have been minimally elevated in the past and she was diagnosed with nonalcoholic fatty liver disease. Ultrasound of the abdomen done yesterday did show nodular appearing liver suspicious for liver cirrhosis. At this time it appears most likely we are dealing with medication-induced hepatitis superimposed on fatty liver disease causing elevated LFTs. The patient has been on rifampin as well as daptomycin for the last few weeks for recurrent infective endocarditis. She was seen by Dr. Coker yesterday and rifampin has been discontinued, but she continues to remain on IV daptomycin. RECOMMENDATIONS: 1. Obtain serologies for hepatitis A, B and C. 2. Because of the intermittent right upper quadrant abdominal pain, we will schedule her for an MRCP to rule out CBD stone. 3. Monitor labs closely. 4. Further recommendations will follow based on the clinical course and MRCP results. Thank you for this consultation. MARIANNE / LIDIA: [id number] /
--- NOTE | 2020-09-08 12:45 | PN ---
PROGRESS NOTE She continues to have pancytopenia. Platelets 122, white count 3.72, hemoglobin is 8.3, creatinine 4.1, BUN is 33. Liver enzymes are AST is 330, ALT is 595, alkaline phosphatase 175. GI doctor saw her. Infectious Disease doctor saw her. They think possibly the antibiotics are causing elevated liver enzymes. I guess [facility] stopped all her antibiotics for the endocarditis. She has had a common bile duct dilation for which MRI is ordered on Thursday. Rifampin has been discontinued. Daptomycin can be continued as it is not hepatotoxic, but the rifampin will be stopped because of the LFTs. She is sitting in bed. Cardiovascular S1, S2. Lungs clear. GI soft. Continue current treatments. Dialysis today. Monitor LFT. MMODL / IJN: [id number] /
--- NOTE | 2020-09-08 15:04 | P.PN ---
Subjective Progress Note Date: 09/08/20 Follow-up for ESRD. Objective - Vital Signs Vital signs: Vital Signs Temp 97.7 F 09/08/20 14:18 Pulse 71 09/08/20 14:18 Resp 18 09/08/20 14:18 BP 117/62 09/08/20 14:18 Pulse Ox 95 09/08/20 13:20 Intake & Output 09/07/20 09/08/20 09/08/20 18:59 06:59 18:59 Intake Total 665 300 780 Output Total 3000 2800 Balance 665 270 Intake: Oral 665 480 Hemodialysis 300 300 Output: Hemodialysis 3000 2800 Other: Voiding Method Toilet # Voids 5 2 2 - Exam No acute distress Lying comfortable in the bed Right jugular permacath Abdomen distended Edema - Labs CBC & Chem 7: 09/08/20 05:41 09/08/20 05:41 Labs: Abnormal Lab Results - Last 24 Hours (Table) 09/07/20 09/07/20 09/07/20 Range/Units 05:06 12:09 12:09 WBC (4.50-10.00) X 10*3/uL RBC (4.10-5.20) X 10*6/uL Hgb (12.0-15.0) g/dL Hct (37.2-46.3) % MCV (80.0-97.0) fL MCHC (32.0-37.0) g/dL RDW (11.5-14.5) % Plt Count (140-440) X 10*3/uL Plt Count Comment Absolute Nucleated RBC (0.00-0.00) X 10*3/uL Metamyelocytes % (0-0) % Lymphocytes # (Manual) (0.90-5.00) X 10*3/uL NRBC/100 WBC Diff (0.0-0.0) /100 WBCS Chloride (96-109) mmol/L Anion Gap (4.00-12.00) mmol/L BUN (9.0-27.0) mg/dL Creatinine (0.6-1.5) mg/dL Est GFR (CKD-EPI)AfAm (60.0-200.0) Est GFR (CKD-EPI)NonAf (60.0-200.0) BUN/Creatinine Ratio (12.00-20.00) Ratio Glucose (70-110) mg/dL POC Glucose (mg/dL) (75-99) mg/dL Ferritin >68677.0 H (22.0-322.0) ng/mL AST (13-35) U/L ALT (8-44) U/L Alkaline Phosphatase (41-126) U/L Creatine Kinase 142 H (30-135) U/L Albumin/Globulin Ratio (1.60-3.17) g/dL Triglycerides 382.0 H (0.0-149.0) mg/dL 09/07/20 09/07/20 09/08/20 Range/Units 17:07 20:49 05:41 WBC 3.72 L (4.50-10.00) X 10*3/uL RBC 2.73 L (4.10-5.20) X 10*6/uL Hgb 8.3 L (12.0-15.0) g/dL Hct 27.4 L (37.2-46.3) % MCV 100.4 H (80.0-97.0) fL MCHC 30.3 L (32.0-37.0) g/dL RDW 18.3 H (11.5-14.5) % Plt Count 122 L (140-440) X 10*3/uL Plt Count Comment DECREASED A Absolute Nucleated RBC 0.09 H (0.00-0.00) X 10*3/uL Metamyelocytes % 1 H (0-0) % Lymphocytes # (Manual) 0.07 L (0.90-5.00) X 10*3/uL NRBC/100 WBC Diff 2.4 H (0.0-0.0) /100 WBCS Chloride (96-109) mmol/L Anion Gap (4.00-12.00) mmol/L BUN (9.0-27.0) mg/dL Creatinine (0.6-1.5) mg/dL Est GFR (CKD-EPI)AfAm (60.0-200.0) Est GFR (CKD-EPI)NonAf (60.0-200.0) BUN/Creatinine Ratio (12.00-20.00) Ratio Glucose (70-110) mg/dL POC Glucose (mg/dL) 130 H 151 H (75-99) mg/dL Ferritin (22.0-322.0) ng/mL AST (13-35) U/L ALT (8-44) U/L Alkaline Phosphatase (41-126) U/L Creatine Kinase (30-135) U/L Albumin/Globulin Ratio (1.60-3.17) g/dL Triglycerides (0.0-149.0) mg/dL 09/08/20 09/08/20 09/08/20 Range/Units 05:41 07:21 11:50 WBC (4.50-10.00) X 10*3/uL RBC (4.10-5.20) X 10*6/uL Hgb (12.0-15.0) g/dL Hct (37.2-46.3) % MCV (80.0-97.0) fL MCHC (32.0-37.0) g/dL RDW (11.5-14.5) % Plt Count (140-440) X 10*3/uL Plt Count Comment Absolute Nucleated RBC (0.00-0.00) X 10*3/uL Metamyelocytes % (0-0) % Lymphocytes # (Manual) (0.90-5.00) X 10*3/uL NRBC/100 WBC Diff (0.0-0.0) /100 WBCS Chloride 91 L (96-109) mmol/L Anion Gap 16.30 H (4.00-12.00) mmol/L BUN 33.0 H (9.0-27.0) mg/dL Creatinine 4.1 H (0.6-1.5) mg/dL Est GFR (CKD-EPI)AfAm 13.5 L (60.0-200.0) Est GFR (CKD-EPI)NonAf 11.7 L (60.0-200.0) BUN/Creatinine Ratio 8.05 L (12.00-20.00) Ratio Glucose 250 H (70-110) mg/dL POC Glucose (mg/dL) 311 H 242 H (75-99) mg/dL Ferritin (22.0-322.0) ng/mL AST 330 H (13-35) U/L ALT 595 H (8-44) U/L Alkaline Phosphatase 177 H (41-126) U/L Creatine Kinase (30-135) U/L Albumin/Globulin Ratio 1.44 L (1.60-3.17) g/dL Triglycerides (0.0-149.0) mg/dL Microbiology - Last 24 Hours (Table) 09/07/20 12:09 Blood Culture - Preliminary Blood No Growth after 24 hours Assessment and Plan Assessment: #1 ESRD on hemodialysis TTS schedule. Getting daily dialysis for volume overload. #2 decompensated liver disease #3 endocarditis was on daptomycin and rifampin, currently blood cultures neg ative #4 anemia with chronic kidney disease #5 hypertension with chronic kidney disease #6 metabolic bone disease Plan: #1 hemodialysis TTS schedule. Had dialysis today. Plan again on Thursday based on the volume status if not Thursday #2 ESRD medications #3 appreciate GI input
--- NOTE | 2020-09-08 16:20 | PN ---
PROGRESS NOTE DATE OF SERVICE: 09/08/2020 REASON FOR FOLLOWUP: MRSA endocarditis. INTERVAL HISTORY: Patient is currently afebrile. The patient is breathing comfortably. The patient denies having any chest pain. No shortness of breath or cough. Abdominal pain has improved. No further vomiting or diarrhea. PHYSICAL EXAMINATION: Blood pressure is 117/62 with a pulse of 71, temperature 97.7, she is 95% on room air. GENERAL DESCRIPTION: A middle-aged female lying in bed in no distress. RESPIRATORY SYSTEM: Unlabored breathing, clear to auscultation anteriorly. HEART: S1, S2. Regular rate and rhythm. ABDOMEN: Soft, no tenderness. No guarding or rigidity. LABS: Hemoglobin 8.3, white count 3.7, BUN of 33, creatinine 4.18, AST and ALT are trending down. DIAGNOSTIC IMPRESSION: Patient admitted to the hospital with elevated liver enzymes, likely from rifampin, as daptomycin is not a drug excreted through the liver. Patient is to continue with daptomycin for another 1-2 doses to finish the course of therapy while monitor her liver enzymes closely. Continue supportive care. MMODL / IJN: [id number] /
[2020-09-08 17:14] LABS: Glucose,Whole Blood 218 mg/dL (75-99)
[2020-09-08 18:08] LABS: Hepatitis A Antibody IgM Non-Reactive (Non-Reactive); Hepatitis B Core IgM Non-Reactive (Non-Reactive); Hepatitis B Surface Antigen Non-Reactive (Non-Reactive); Hepatitis C IgG Antibody Non-Reactive (Non-Reactive)
--- NOTE | 2020-09-08 18:21 | P.PN ---
Subjective Progress Note Date: 09/08/20 CHIEF COMPLAINT: Abdominal pain HISTORY OF PRESENT ILLNESS: The patient is a 55 year old female with complicated history for necrotizing pancreatitis. She is tolerating a cheeseburger. She denies any abdominal pain at this time. REVIEW OF ORGAN SYSTEMS: No chest pain, no shortness of breath. No nausea or vomiting. PHYSICAL EXAM: VITALS: Reviewed CONSTITUTIONAL: Well developed and in no acute distress. EYES: Conjuctivae without sclera icterus. Extraocular movements grossly intact. HEAD, EARS, NOSE, THROAT: Moist buccal mucosa. Head is atraumatic, normocephalic. Hears conversational speech. RESPIRATORY: Non-labored respirations and equal bilateral excursions. No gross wheezes. CARDIOVASCULAR: Regular rate and rhythm. Palpable 2+ radial pulses. ABDOMEN: No peritonitis. Non-tender NEUROLOGIC: Cranial nerves II through XII grossly intact. No focal or lateralizing signs. PSYCH: Alert to person, place and time. CLINCAL LABS: Reviewed. WBC low. ASSESSMENT: 1. Abdominal pain 2. History of necrotizing pancreatitis PLAN: 1. Diet as tolerated. Objective - Vital Signs Vital signs: Vital Signs Temp 97.7 F 09/08/20 14:18 Pulse 71 09/08/20 14:18 Resp 18 09/08/20 14:18 BP 117/62 09/08/20 14:18 Pulse Ox 95 09/08/20 13:20 Intake & Output 09/07/20 09/08/20 09/08/20 18:59 06:59 18:59 Intake Total 665 300 780 Output Total 3000 2800 Balance 5 Intake: Oral 665 480 Hemodialysis 300 300 Output: Hemodialysis 3000 2800 Other: Voiding Method Toilet # Voids 5 2 2 - Labs CBC & Chem 7: 09/08/20 05:41 09/08/20 05:41 Labs: Abnormal Lab Results - Last 24 Hours (Table) 09/07/20 09/07/20 09/07/20 Range/Units 12:09 12:09 20:49 WBC (4.50-10.00) X 10*3/uL RBC (4.10-5.20) X 10*6/uL Hgb (12.0-15.0) g/dL Hct (37.2-46.3) % MCV (80.0-97.0) fL MCHC (32.0-37.0) g/dL RDW (11.5-14.5) % Plt Count (140-440) X 10*3/uL Plt Count Comment Absolute Nucleated RBC (0.00-0.00) X 10*3/uL Metamyelocytes % (0-0) % Lymphocytes # (Manual) (0.90-5.00) X 10*3/uL NRBC/100 WBC Diff (0.0-0.0) /100 WBCS Chloride (96-109) mmol/L Anion Gap (4.00-12.00) mmol/L BUN (9.0-27.0) mg/dL Creatinine (0.6-1.5) mg/dL Est GFR (CKD-EPI)AfAm (60.0-200.0) Est GFR (CKD-EPI)NonAf (60.0-200.0) BUN/Creatinine Ratio (12.00-20.00) Ratio Glucose (70-110) mg/dL POC Glucose (mg/dL) 151 H (75-99) mg/dL Ferritin >40729.0 H (22.0-322.0) ng/mL AST (13-35) U/L ALT (8-44) U/L Alkaline Phosphatase (41-126) U/L Albumin/Globulin Ratio (1.60-3.17) g/dL Triglycerides 382.0 H (0.0-149.0) mg/dL 09/08/20 09/08/20 09/08/20 Range/Units 05:41 05:41 07:21 WBC 3.72 L (4.50-10.00) X 10*3/uL RBC 2.73 L (4.10-5.20) X 10*6/uL Hgb 8.3 L (12.0-15.0) g/dL Hct 27.4 L (37.2-46.3) % MCV 100.4 H (80.0-97.0) fL MCHC 30.3 L (32.0-37.0) g/dL RDW 18.3 H (11.5-14.5) % Plt Count 122 L (140-440) X 10*3/uL Plt Count Comment DECREASED A Absolute Nucleated RBC 0.09 H (0.00-0.00) X 10*3/uL Metamyelocytes % 1 H (0-0) % Lymphocytes # (Manual) 0.07 L (0.90-5.00) X 10*3/uL NRBC/100 WBC Diff 2.4 H (0.0-0.0) /100 WBCS Chloride 91 L (96-109) mmol/L Anion Gap 16.30 H (4.00-12.00) mmol/L BUN 33.0 H (9.0-27.0) mg/dL Creatinine 4.1 H (0.6-1.5) mg/dL Est GFR (CKD-EPI)AfAm 13.5 L (60.0-200.0) Est GFR (CKD-EPI)NonAf 11.7 L (60.0-200.0) BUN/Creatinine Ratio 8.05 L (12.00-20.00) Ratio Glucose 250 H (70-110) mg/dL POC Glucose (mg/dL) 311 H (75-99) mg/dL Ferritin (22.0-322.0) ng/mL AST 330 H (13-35) U/L ALT 595 H (8-44) U/L Alkaline Phosphatase 177 H (41-126) U/L Albumin/Globulin Ratio 1.44 L (1.60-3.17) g/dL Triglycerides (0.0-149.0) mg/dL 09/08/20 09/08/20 Range/Units 11:50 17:12 WBC (4.50-10.00) X 10*3/uL RBC (4.10-5.20) X 10*6/uL Hgb (12.0-15.0) g/dL Hct (37.2-46.3) % MCV (80.0-97.0) fL MCHC (32.0-37.0) g/dL RDW (11.5-14.5) % Plt Count (140-440) X 10*3/uL Plt Count Comment Absolute Nucleated RBC (0.00-0.00) X 10*3/uL Metamyelocytes % (0-0) % Lymphocytes # (Manual) (0.90-5.00) X 10*3/uL NRBC/100 WBC Diff (0.0-0.0) /100 WBCS Chloride (96-109) mmol/L Anion Gap (4.00-12.00) mmol/L BUN (9.0-27.0) mg/dL Creatinine (0.6-1.5) mg/dL Est GFR (CKD-EPI)AfAm (60.0-200.0) Est GFR (CKD-EPI)NonAf (60.0-200.0) BUN/Creatinine Ratio (12.00-20.00) Ratio Glucose (70-110) mg/dL POC Glucose (mg/dL) 242 H 218 H (75-99) mg/dL Ferritin (22.0-322.0) ng/mL AST (13-35) U/L ALT (8-44) U/L Alkaline Phosphatase (41-126) U/L Albumin/Globulin Ratio (1.60-3.17) g/dL Triglycerides (0.0-149.0) mg/dL Microbiology - Last 24 Hours (Table) 09/07/20 12:09 Blood Culture - Preliminary Blood No Growth after 24 hours
[2020-09-08] MEDS: MONTELUKAST 10 MG TAB PO SCH (19:47)
[2020-09-08] MEDS: CYCLOBENZAPRINE 5 MG TAB PO SCH (19:47)
[2020-09-08 20:55] LABS: Glucose,Whole Blood 261 mg/dL (75-99)
[2020-09-08] MEDS: NON FORMULARY DRUG (Insulin Glargine,Hum.Rec.Anlog [Basaglar Kwikpen U-100] 100 UNIT/ML In SQ SCH (21:29)
[2020-09-08] MEDS: ZOLPIDEM 5 MG TAB PO PRN (21:57)
[2020-09-09] MEDS: MORPHINE SULFATE 2 MG/ML SYRINGE IVP PRN ×4 (02:38→21:21)
[2020-09-09] MEDS: ONDANSETRON 4 MG/2 ML VIAL IVP PRN (04:13)
[2020-09-09] MEDS: SILDENAFIL 20 MG TAB PO SCH ×3 (04:55→20:26)
[2020-09-09] MEDS: cloNIDine HCL 0.1 MG TAB PO SCH ×3 (04:55→20:25)
[2020-09-09] MEDS: ASCORBIC ACID 500 MG TAB PO SCH (04:55)
[2020-09-09] MEDS: HYDROcodone/APAP 7.5-325MG 1 EACH TAB PO SCH ×3 (04:56→20:27)
[2020-09-09] MEDS: hydrALAZINE HCL 50 MG TAB PO SCH ×4 (04:56→20:25)
[2020-09-09 07:23] LABS: Glucose,Whole Blood 259 mg/dL (75-99)
[2020-09-09] MEDS: ALBUTEROL HFA INHALER INHALATION PRN ×3 (07:40→16:27)
[2020-09-09] MEDS: METOPROLOL TARTRATE 50 MG TAB PO SCH ×3 (08:44→21:20)
[2020-09-09] MEDS: INSULIN ASPART (NovoLOG) 100 UNIT/ML VIAL SQ SCH ×3 (08:44→17:14)
[2020-09-09] MEDS: SODIUM POLYSTYRENE SULFONATE 15 GM/60 ML BOTTLE PO SCH (08:44)
[2020-09-09] MEDS: diazePAM 5 MG TAB PO SCH ×2 (08:44→20:27)
[2020-09-09] MEDS: FUROSEMIDE 40 MG TAB PO SCH (08:44)
[2020-09-09] MEDS: PANTOPRAZOLE 40 MG TABLET PO SCH (08:44)
[2020-09-09] MEDS: GABAPENTIN 100 MG CAP PO SCH ×3 (08:44→20:25)
--- NOTE | 2020-09-09 09:12 | PN ---
PROGRESS NOTE DATE OF SERVICE: September 09, 2020 Patient is a 55-year-old pleasant white female admitted to the hospital with elevated LFTs. She is on antibiotics for recurrent infective endocarditis and presently on IV daptomycin and Rifampin was discontinued [address] Coker. The patient is clinically doing well. She still has some vague right upper quadrant abdominal pain. No nausea, no vomiting. Labs from yesterday did show mild improvement in serum transaminases with ALT and AST at 330 and 595 respectively. Labs from this morning are pending. Hepatitis serologies for A, B and C are negative. She was also scheduled for an MRCP to rule out CBD stones because of intermittent right upper quadrant abdominal pain. PHYSICAL EXAMINATION: Appears comfortable, no apparent distress. Vital signs stable. Blood pressure 126/71, pulse rate 97, temperature 98.1. HEENT examination unremarkable. Conjunctivae pink. Sclerae anicteric. Oral cavity no lesions. NECK: No JVD or lymph node enlargement. CHEST was clear to auscultation. HEART: Regular rate and rhythm. ABDOMEN: Soft. Mild tenderness in the right upper quadrant area. Rest of the abdomen is benign. Bowel sounds are positive. No organomegaly. EXTREMITIES: No pedal edema. NEUROLOGIC: Alert and oriented x3. No focal deficits. LABS: WBC 3.7, hemoglobin 8.3, platelets 122. AST and ALT are 330 and 595 respectively, alkaline phosphatase 177, bilirubin is normal. Hepatitis A, B and C are negative. Ferritin more than 16,000 and saturation 28,000. IMPRESSION: 1. Elevated LFTs, most likely medication induced. Serum transaminases are gradually improving. Hepatitis serologies for A, B and C are negative. Rifampin has been discontinued. Presently on IV daptomycin for recurrent infective endocarditis. 2. History of infective endocarditis as mentioned above. 3. History of fatty liver disease with possible underlying liver cirrhosis. RECOMMENDATIONS: 1. Monitor LFTs closely. 2. Avoid hepatotoxic medications. 3. Await MRCP that is scheduled for tomorrow. 4. Antibiotics as per Dr. Coker. 5. We will follow with you closely. Thank you for this consultation. MMODL / IJN: [id number] /
[2020-09-09 09:36] LABS: HCT 26.1 % (37.2-46.3); HGB 7.8 g/dL (12.0-15.0); MCH 30.4 pg (27.0-32.0); MCHC 29.9 g/dL (32.0-37.0); MCV 101.6 fL (80.0-97.0); Mean Platelet Volume 10.6 fL (9.5-12.2); Platelet Count 108 X 10*3/uL (140-440); RBC 2.57 X 10*6/uL (4.10-5.20); RDW 18.4 % (11.5-14.5); WBC 3.48 X 10*3/uL (4.50-10.00)
[2020-09-09 09:49] LABS: African American GFR (CKD) 13.9 (60.0-200.0); Albumin 3.8 g/dL (3.80-4.90); Albumin/Globulin Ratio 1.31 (1.60-3.17); Anion Gap 11.4 mmol/L (4.00-12.00); BUN/Creat Ratio 7.5 Ratio (12.00-20.00); Calcium 8.6 mg/dL (8.7-10.3); Carbon Dioxide 27.6 mmol/L (21.6-31.8); Globulin 2.9 g/dL (1.6-3.3); Potassium 4.7 mmol/L (3.5-5.5); Total Bilirubin 0.7 mg/dL (0.3-1.2); Total Protein 6.7 g/dL (6.2-8.2)
[2020-09-09 10:20] LABS: Basophils # (M) 0.03 X 10*3/uL (0.00-0.10); Lymphocytes # (M) 0.14 X 10*3/uL (0.90-5.00); Metamyelocytes % 1 % (0-0); Myelocytes % 1 % (0-0); Neutrophils # (M) 3.03 X 10*3/uL (2.00-8.90); Neutrophils % (M) 87 %
[2020-09-09 11:31] LABS: Glucose,Whole Blood 292 mg/dL (75-99)
--- NOTE | 2020-09-09 15:20 | P.PN ---
Subjective Progress Note Date: 09/09/20 Follow-up for ESRD. Had dialysis yesterday. Tolerated well Objective - Vital Signs Vital signs: Vital Signs Temp 98.1 F 09/09/20 14:04 Pulse 74 09/09/20 14:04 Resp 16 09/09/20 14:04 BP 152/72 09/09/20 14:04 Pulse Ox 100 09/09/20 14:04 Intake & Output 09/08/20 09/09/20 09/09/20 18:59 06:59 18:59 Intake Total 780 300 480 Output Total 2800 Balance -2019 300 480 Intake: Oral 480 300 480 Hemodialysis 300 Output: Hemodialysis 2800 Other: Voiding Method Toilet # Voids 2 2 7 - Exam No acute distress Lying comfortable in the bed Right jugular permacath Abdomen distended Edema - Labs CBC & Chem 7: 09/09/20 05:02 09/09/20 05:02 Labs: Abnormal Lab Results - Last 24 Hours (Table) 09/08/20 09/08/20 09/09/20 Range/Units 17:12 20:53 05:02 WBC (4.50-10.00) X 10*3/uL RBC (4.10-5.20) X 10*6/uL Hgb (12.0-15.0) g/dL Hct (37.2-46.3) % MCV (80.0-97.0) fL MCHC (32.0-37.0) g/dL RDW (11.5-14.5) % Plt Count (140-440) X 10*3/uL Plt Count Comment Absolute Nucleated RBC (0.00-0.00) X 10*3/uL Metamyelocytes % (0-0) % Myelocytes % (0-0) % Lymphocytes # (Manual) (0.90-5.00) X 10*3/uL Monocytes # (Manual) (0.20-1.00) X 10*3/uL NRBC/100 WBC Diff (0.0-0.0) /100 WBCS BUN 30.0 H (9.0-27.0) mg/dL Creatinine 4.0 H (0.6-1.5) mg/dL Est GFR (CKD-EPI)AfAm 13.9 L (60.0-200.0) Est GFR (CKD-EPI)NonAf 12.0 L (60.0-200.0) BUN/Creatinine Ratio 7.50 L (12.00-20.00) Ratio Glucose 257 H (70-110) mg/dL POC Glucose (mg/dL) 218 H 261 H (75-99) mg/dL Calcium 8.6 L (8.7-10.3) mg/dL AST 109 H (13-35) U/L ALT 375 H (8-44) U/L Alkaline Phosphatase 158 H (41-126) U/L Albumin/Globulin Ratio 1.31 L (1.60-3.17) g/dL 09/09/20 09/09/20 09/09/20 Range/Units 05:02 07:22 11:28 WBC 3.48 L (4.50-10.00) X 10*3/uL RBC 2.57 L (4.10-5.20) X 10*6/uL Hgb 7.8 L (12.0-15.0) g/dL Hct 26.1 L (37.2-46.3) % MCV 101.6 H (80.0-97.0) fL MCHC 29.9 L (32.0-37.0) g/dL RDW 18.4 H (11.5-14.5) % Plt Count 108 L (140-440) X 10*3/uL Plt Count Comment DECREASED A Absolute Nucleated RBC 0.10 H (0.00-0.00) X 10*3/uL Metamyelocytes % 1 H (0-0) % Myelocytes % 1 H (0-0) % Lymphocytes # (Manual) 0.14 L (0.90-5.00) X 10*3/uL Monocytes # (Manual) 0.10 L (0.20-1.00) X 10*3/uL NRBC/100 WBC Diff 2.9 H (0.0-0.0) /100 WBCS BUN (9.0-27.0) mg/dL Creatinine (0.6-1.5) mg/dL Est GFR (CKD-EPI)AfAm (60.0-200.0) Est GFR (CKD-EPI)NonAf (60.0-200.0) BUN/Creatinine Ratio (12.00-20.00) Ratio Glucose (70-110) mg/dL POC Glucose (mg/dL) 259 H 292 H (75-99) mg/dL Calcium (8.7-10.3) mg/dL AST (13-35) U/L ALT (8-44) U/L Alkaline Phosphatase (41-126) U/L Albumin/Globulin Ratio (1.60-3.17) g/dL Microbiology - Last 24 Hours (Table) 09/07/20 12:09 Blood Culture - Preliminary Blood No Growth after 48 hours Assessment and Plan Assessment: #1 ESRD on hemodialysis TTS schedule. Getting daily dialysis for volume overload. #2 decompensated liver disease #3 endocarditis was on daptomycin and rifampin, currently blood cultures negative #4 anemia with chronic kidney disease #5 hypertension with chronic kidney disease #6 metabolic bone disease Plan: #1 hemodialysis TTS schedule. Had dialysis yesterday, plan again tomorrow short treatment. Full treatment on Thursday #2 ESRD medications #3 appreciate GI input
--- NOTE | 2020-09-09 16:51 | P.PN ---
Subjective Progress Note Date: 09/09/20 CHIEF COMPLAINT: Abdominal pain HISTORY OF PRESENT ILLNESS: The patient is a 55 year old female with complicated history for necrotizing pancreatitis. She denies abdominal pain today. She is tolerating diet. REVIEW OF ORGAN SYSTEMS: No chest pain, no shortness of breath. No nausea or vomiting. PHYSICAL EXAM: VITALS: Reviewed CONSTITUTIONAL: Well developed and in no acute distress. EYES: Conjuctivae without sclera icterus. Extraocular movements grossly intact. HEAD, EARS, NOSE, THROAT: Moist buccal mucosa. Head is atraumatic, normocephalic. Hears conversational speech. RESPIRATORY: Non-labored respirations and equal bilateral excursions. No gross wheezes. CARDIOVASCULAR: Regular rate and rhythm. Palpable 2+ radial pulses. ABDOMEN: No peritonitis. Non-tender NEUROLOGIC: Cranial nerves II through XII grossly intact. No focal or lateralizing signs. PSYCH: Alert to person, place and time. CLINCAL LABS: Reviewed. WBC low. ASSESSMENT: 1. Abdominal pain 2. History of necrotizing pancreatitis PLAN: 1. Management per GI regarding abnormal LFTs and history of pancreatitis Objective - Vital Signs Vital signs: Vital Signs Temp 98.1 F 09/09/20 14:04 Pulse 74 09/09/20 14:04 Resp 16 09/09/20 14:04 BP 152/72 09/09/20 14:04 Pulse Ox 100 09/09/20 14:04 Intake & Output 09/08/20 09/09/20 09/09/20 18:59 06:59 18:59 Intake Total 780 300 480 Output Total 2800 Balance -2019 300 480 Intake: Oral 480 300 480 Hemodialysis 300 Output: Hemodialysis 2800 Other: Voiding Method Toilet # Voids 2 2 7 - Labs CBC & Chem 7: 09/09/20 05:02 09/09/20 05:02 Labs: Abnormal Lab Results - Last 24 Hours (Table) 09/08/20 09/08/20 09/09/20 Range/Units 17:12 20:53 05:02 WBC (4.50-10.00) X 10*3/uL RBC (4.10-5.20) X 10*6/uL Hgb (12.0-15.0) g/dL Hct (37.2-46.3) % MCV (80.0-97.0) fL MCHC (32.0-37.0) g/dL RDW (11.5-14.5) % Plt Count (140-440) X 10*3/uL Plt Count Comment Absolute Nucleated RBC (0.00-0.00) X 10*3/uL Metamyelocytes % (0-0) % Myelocytes % (0-0) % Lymphocytes # (Manual) (0.90-5.00) X 10*3/uL Monocytes # (Manual) (0.20-1.00) X 10*3/uL NRBC/100 WBC Diff (0.0-0.0) /100 WBCS BUN 30.0 H (9.0-27.0) mg/dL Creatinine 4.0 H (0.6-1.5) mg/dL Est GFR (CKD-EPI)AfAm 13.9 L (60.0-200.0) Est GFR (CKD-EPI)NonAf 12.0 L (60.0-200.0) BUN/Creatinine Ratio 7.50 L (12.00-20.00) Ratio Glucose 257 H (70-110) mg/dL POC Glucose (mg/dL) 218 H 261 H (75-99) mg/dL Calcium 8.6 L (8.7-10.3) mg/dL AST 109 H (13-35) U/L ALT 375 H (8-44) U/L Alkaline Phosphatase 158 H (41-126) U/L Albumin/Globulin Ratio 1.31 L (1.60-3.17) g/dL 09/09/20 09/09/20 09/09/20 Range/Units 05:02 07:22 11:28 WBC 3.48 L (4.50-10.00) X 10*3/uL RBC 2.57 L (4.10-5.20) X 10*6/uL Hgb 7.8 L (12.0-15.0) g/dL Hct 26.1 L (37.2-46.3) % MCV 101.6 H (80.0-97.0) fL MCHC 29.9 L (32.0-37.0) g/dL RDW 18.4 H (11.5-14.5) % Plt Count 108 L (140-440) X 10*3/uL Plt Count Comment DECREASED A Absolute Nucleated RBC 0.10 H (0.00-0.00) X 10*3/uL Metamyelocytes % 1 H (0-0) % Myelocytes % 1 H (0-0) % Lymphocytes # (Manual) 0.14 L (0.90-5.00) X 10*3/uL Monocytes # (Manual) 0.10 L (0.20-1.00) X 10*3/uL NRBC/100 WBC Diff 2.9 H (0.0-0.0) /100 WBCS BUN (9.0-27.0) mg/dL Creatinine (0.6-1.5) mg/dL Est GFR (CKD-EPI)AfAm (60.0-200.0) Est GFR (CKD-EPI)NonAf (60.0-200.0) BUN/Creatinine Ratio (12.00-20.00) Ratio Glucose (70-110) mg/dL POC Glucose (mg/dL) 259 H 292 H (75-99) mg/dL Calcium (8.7-10.3) mg/dL AST (13-35) U/L ALT (8-44) U/L Alkaline Phosphatase (41-126) U/L Albumin/Globulin Ratio (1.60-3.17) g/dL Microbiology - Last 24 Hours (Table) 09/07/20 12:09 Blood Culture - Preliminary Blood No Growth after 48 hours
[2020-09-09 17:13] LABS: Glucose,Whole Blood 254 mg/dL (75-99)
[2020-09-09 20:22] LABS: Glucose,Whole Blood 198 mg/dL (75-99)
[2020-09-09] MEDS: CYCLOBENZAPRINE 5 MG TAB PO SCH (20:25)
[2020-09-09] MEDS: MONTELUKAST 10 MG TAB PO SCH (20:25)
[2020-09-09] MEDS: NON FORMULARY DRUG (Insulin Glargine,Hum.Rec.Anlog [Basaglar Kwikpen U-100] 100 UNIT/ML In SQ SCH (20:28)
[2020-09-09] MEDS ORDERED: INSULIN DETEMIR (LEVEMIR) 100 UNIT/ML SYR SQ SCH (21:00)
[2020-09-09] MEDS: ZOLPIDEM 5 MG TAB PO PRN (21:20)
[2020-09-10] MEDS: MORPHINE SULFATE 2 MG/ML SYRINGE IVP PRN ×2 (01:37→10:04)
[2020-09-10] MEDS: ASCORBIC ACID 500 MG TAB PO SCH (05:18)
[2020-09-10] MEDS: cloNIDine HCL 0.1 MG TAB PO SCH ×2 (05:18→16:28)
[2020-09-10] MEDS: hydrALAZINE HCL 50 MG TAB PO SCH ×3 (05:18→16:27)
[2020-09-10] MEDS: HYDROcodone/APAP 7.5-325MG 1 EACH TAB PO SCH ×2 (05:18→16:26)
[2020-09-10] MEDS: SILDENAFIL 20 MG TAB PO SCH ×2 (05:19→16:26)
--- NOTE | 2020-09-10 05:36 | PN ---
PROGRESS NOTE DATE OF SERVICE: 09/09/2020 REASON FOR FOLLOW UP: Endocarditis. MRSA. INTERVAL HISTORY: The patient is currently afebrile. The patient is breathing comfortably. Patient denies having any chest pain, shortness of breath or cough. No nausea, vomiting. No abdominal pain. No vomiting or diarrhea. PHYSICAL EXAMINATION: Blood pressure 152/72 with a pulse of 74, temperature 98.1. She is 100% on room air. General description: The patient is a middle-aged female up in the chair in no distress. Respiratory system: Unlabored breathing, clear to auscultation anteriorly. Heart S1, S2. Regular rate and rhythm. ABDOMEN: Soft, mildly distended. No guarding. No rigidity. LABS: Hemoglobin 7.8, white count 3.48, creatinine 4.0, AST is down to 100, ALT down to 325. DIAGNOSTIC IMPRESSION/PLAN: Patient with MRSA endocarditis, admitted to the hospital with elevated liver enzymes more likely related to rifampin. The patient did well on the daptomycin. She will get a dose tomorrow and that will be completion of her therapy and close outpatient followup. MMODL / IJN: [id number] /
[2020-09-10] MEDS: ALBUTEROL HFA INHALER INHALATION PRN ×2 (07:23→11:02)
[2020-09-10 07:55] LABS: Glucose,Whole Blood 165 mg/dL (75-99)
[2020-09-10] MEDS: GABAPENTIN 100 MG CAP PO SCH ×2 (08:14→16:27)
[2020-09-10] MEDS: SODIUM POLYSTYRENE SULFONATE 15 GM/60 ML BOTTLE PO SCH (08:14)
[2020-09-10] MEDS: PANTOPRAZOLE 40 MG TABLET PO SCH (08:15)
[2020-09-10] MEDS: diazePAM 5 MG TAB PO SCH (08:15)
[2020-09-10] MEDS: INSULIN ASPART (NovoLOG) 100 UNIT/ML VIAL SQ SCH ×2 (08:16→12:53)
[2020-09-10 09:06] LABS: HGB 8.3 g/dL (12.0-15.0); MCH 30.5 pg (27.0-32.0); MCHC 30.7 g/dL (32.0-37.0); MCV 99.3 fL (80.0-97.0); Mean Platelet Volume 10.5 fL (9.5-12.2); Platelet Count 126 X 10*3/uL (140-440); RBC 2.72 X 10*6/uL (4.10-5.20); RDW 18.9 % (11.5-14.5); WBC 4.04 X 10*3/uL (4.50-10.00)
[2020-09-10 09:27] LABS: African American GFR (CKD) 10.4 (60.0-200.0); Albumin 3.8 g/dL (3.80-4.90); Albumin/Globulin Ratio 1.31 (1.60-3.17); Anion Gap 15.2 mmol/L (4.00-12.00); BUN/Creat Ratio 8.63 Ratio (12.00-20.00); Calcium 8.7 mg/dL (8.7-10.3); Carbon Dioxide 22.8 mmol/L (21.6-31.8); Globulin 2.9 g/dL (1.6-3.3); Total Bilirubin 0.6 mg/dL (0.3-1.2); Total Protein 6.7 g/dL (6.2-8.2)
[2020-09-10 10:39] LABS: Basophils # (M) 0.04 X 10*3/uL (0.00-0.10); Eosinophils # (M) 0.08 X 10*3/uL (0.04-0.35); Lymphocytes # (M) 0.16 X 10*3/uL (0.90-5.00); Monocytes # (M) 0.08 X 10*3/uL (0.20-1.00); Myelocytes % 3 % (0-0); Neutrophils # (M) 3.56 X 10*3/uL (2.00-8.90); Neutrophils % (M) 88 %; Polychromasia 2+
[2020-09-10 12:20] LABS: Glucose,Whole Blood 209 mg/dL (75-99)
--- NOTE | 2020-09-10 12:20 | P.PN ---
Subjective Progress Note Date: 09/10/20 Principal diagnosis: Elevated LFTs Pleasant 55-year-old white female who was admitted to the hospital with elevated LFTs. She was on antibiotics for recurrent infective endocarditis presently on IV daptomycin and rifampin which was discontinued [address] Coker 3 the patient was having some vague right upper quadrant discomfort for the last 2 days however today she states it feels much better. She is denying any nausea or vomiting. Patient was scheduled for an MRCP today, however the MRI machine is broken. LFTs continued to improve, total bilirubin 0.6, alkaline phosphatase 160, AST 46, ALT 242. Hepatitis panel was negative. no right upper quadrant pain. Objective - Vital Signs Vital signs: Vital Signs Temp 97.8 F 09/10/20 07:00 Pulse 74 09/10/20 07:00 Resp 16 09/10/20 07:00 BP 144/75 09/10/20 07:00 Pulse Ox 97 09/10/20 07:00 Intake & Output 09/09/20 09/10/20 09/10/20 18:59 06:59 18:59 Intake Total 480 Balance 480 Intake: Oral 480 Other: Voiding Method Toilet # Voids 7 2 - Exam General appearance: The patient is alert, oriented, appears in no acute distress. HET: Head is normocephalic and atraumatic. Conjunctiva pink. Sclera anicteric. Neck: Supple without lymphadenopathy. Abdomen: Soft, nontender, distended with bowel sounds. No guarding or rigidity. Extremities: Normal skin color and turgor. No pedal edema Skin: No rashes, no jaundice Neurological: No focal deficits. Alert and oriented 3. - Labs CBC & Chem 7: 09/10/20 06:08 09/10/20 06:08 Labs: Abnormal Lab Results - Last 24 Hours (Table) 09/09/20 09/09/20 09/09/20 Range/Units 11:28 17:10 20:21 WBC (4.50-10.00) X 10*3/uL RBC (4.10-5.20) X 10*6/uL Hgb (12.0-15.0) g/dL Hct (37.2-46.3) % MCV (80.0-97.0) fL MCHC (32.0-37.0) g/dL RDW (11.5-14.5) % Plt Count (140-440) X 10*3/uL Absolute Nucleated RBC (0.00-0.00) X 10*3/uL NRBC/100 WBC Diff (0.0-0.0) /100 WBCS Sodium (135-145) mmol/L Chloride (96-109) mmol/L Anion Gap (4.00-12.00) mmol/L BUN (9.0-27.0) mg/dL Creatinine (0.6-1.5) mg/dL Est GFR (CKD-EPI)AfAm (60.0-200.0) Est GFR (CKD-EPI)NonAf (60.0-200.0) BUN/Creatinine Ratio (12.00-20.00) Ratio Glucose (70-110) mg/dL POC Glucose (mg/dL) 292 H 254 H 198 H (75-99) mg/dL AST (13-35) U/L ALT (8-44) U/L Alkaline Phosphatase (41-126) U/L Albumin/Globulin Ratio (1.60-3.17) g/dL 09/10/20 09/10/20 09/10/20 Range/Units 06:08 06:08 07:47 WBC 4.04 L (4.50-10.00) X 10*3/uL RBC 2.72 L (4.10-5.20) X 10*6/uL Hgb 8.3 L (12.0-15.0) g/dL Hct 27.0 L (37.2-46.3) % MCV 99.3 H (80.0-97.0) fL MCHC 30.7 L (32.0-37.0) g/dL RDW 18.9 H (11.5-14.5) % Plt Count 126 L (140-440) X 10*3/uL Absolute Nucleated RBC 0.09 H (0.00-0.00) X 10*3/uL NRBC/100 WBC Diff 2.2 H (0.0-0.0) /100 WBCS Sodium 133 L (135-145) mmol/L Chloride 95 L (96-109) mmol/L Anion Gap 15.20 H (4.00-12.00) mmol/L BUN 44.0 H (9.0-27.0) mg/dL Creatinine 5.1 H (0.6-1.5) mg/dL Est GFR (CKD-EPI)AfAm 10.4 L (60.0-200.0) Est GFR (CKD-EPI)NonAf 9.0 L (60.0-200.0) BUN/Creatinine Ratio 8.63 L (12.00-20.00) Ratio Glucose 172 H (70-110) mg/dL POC Glucose (mg/dL) 165 H (75-99) mg/dL AST 46 H (13-35) U/L ALT 242 H (8-44) U/L Alkaline Phosphatase 160 H (41-126) U/L Albumin/Globulin Ratio 1.31 L (1.60-3.17) g/dL Microbiology - Last 24 Hours (Table) 09/07/20 12:09 Blood Culture - Preliminary Blood No Growth after 48 hours Assessment and Plan (1) Transaminitis Narrative/Plan: History 55-year-old white female who presented to the emergency room after having labs done for her hemodialysis which showed elevated liver enzymes. She has a past history of chronic liver disease, likely related to fatty liver. She is followed up with Dr. Guaman in the past in 2017 and also at [facility] recently prior to her her valve replacement. She has multiple comorbidities including end-stage renal disease on hemodialysis, recent heart valve replacement, pancreatectomy, and diabetes mellitus. She came in without any complaints of abdominal pain, she states she does get nausea and vomiting which he describes as mostly dry heaves, however this is chronic. Her prior liver enzymes were mildly elevated, she had significant elevation in her liver enzymes on admission with her total bilirubin being 1.0, alkaline phosphatase 145, AST 643, ALT 641. She recently was on IV antibiotics for bacteremia including daptomycin and rifampin, which was discontinued and also states she was on oral antibiotic however she is unsure of which one it was. Ultrasound of the abdomen showed small amount of ascites, hydropic gallbladder with no gallstones or wall thickening. CBD dilated at 1 cm correlate first distal CBD obstruction, atropine the right kidney, and the heart is enlarged and lobulated correlate for hepatomegaly and hepatocellular disease. Likely dealing with Medication induced hepatitis superimposed on chronic liver disease. LFTs continue to improve with improvement of RUQ pain. MRCP cancelled. Status: Acute Code(s): R74.01 - ELEVATION OF LEVELS OF LIVER TRANSAMINASE LEVELS SNOMED Code(s): 992643168 (2) ESRD (end stage renal disease) on dialysis Narrative/Plan: Neurology following patient closely Status: Acute Code(s): N18.6 - END STAGE RENAL DISEASE; Z99.2 - DEPENDENCE ON RENAL DIALYSIS SNOMED Code(s): 870800978 (3) Nausea and vomiting Narrative/Plan: Controlled Status: Acute Code(s): R11.2 - NAUSEA WITH VOMITING, UNSPECIFIED SNOMED Code(s): 85117483 (4) Chronic liver disease Status: Acute Code(s): K76.9 - LIVER DISEASE, UNSPECIFIED SNOMED Code(s): 168090426 Plan: 1. Continue symptomatic and supportive care 2. Diet as tolerated 3. Repeat daily CBC, CMP 4. Hemodialysis as ordered per nephrology 5. Avoid hepatotoxins 6. Elevated LFTS likely medication induced hepatitis superimposed on nonalcoholic fatty liver disease 7. MRCP cancelled Thank you for this consultation, patient may be discharged home from a gastroenterology standpoint with follow up in 2-[address] Andrei Guaman I agree with the dictator's note, documented as a scribe by Alesia Garcia.
--- NOTE | 2020-09-10 14:16 | P.PN ---
Subjective Progress Note Date: 09/10/20 CHIEF COMPLAINT: Abnormal LFTs HISTORY OF PRESENT ILLNESS: Surgical service is following in regards to nathan presley's elevated LFTs. She still denies any abdominal pain. GI service is following and has her scheduled for MRCP today. She denies any nausea and vomiting this morning. She is tolerating diet. Afebrile. WBC 4.0 for hemoglobin 8.3 platelets 126 AST 46 ALT 242 ALT 160 LFTs trending down hepatitis panel negative total bilirubin 0.6. GI service also following the elevated LFTs that could be elevated due to antibiotics history of nonalcoholic fatty liver disease. PHYSICAL EXAM: VITAL SIGNS: Reviewed. GENERAL: Well-developed in no acute distress. HEENT: No sclera icterus. Extraocular movements grossly intact. Moist buccal mucosa. Head is atraumatic, normocephalic. ABDOMEN: Soft. Distended Nontender. NEUROLOGIC: Alert and oriented. Cranial nerves II through XII grossly intact. ASSESSMENT: 1. Elevated LFTs concerns for possible choledocholithiasis patient scheduled for MRCP today. Unfortunately MRI machine is broken. PLAN: -Appreciate GI service recommendations -Continue low-fat diet -Continue supportive care Physician Law Secretary note has been reviewed by physician. Signing provider agrees with the documented findings, assessment, and plan of care. Objective - Vital Signs Vital signs: Vital Signs Temp 97.8 F 09/10/20 07:00 Pulse 74 09/10/20 07:00 Resp 16 09/10/20 07:00 BP 144/75 09/10/20 07:00 Pulse Ox 97 09/10/20 07:00 Intake & Output 09/09/20 09/10/20 09/10/20 18:59 06:59 18:59 Intake Total 480 Balance 480 Intake: Oral 480 Other: Voiding Method Toilet # Voids 7 2 - Labs CBC & Chem 7: 09/10/20 06:08 09/10/20 06:08 Labs: Abnormal Lab Results - Last 24 Hours (Table) 09/09/20 09/09/20 09/10/20 Range/Units 17:10 20:21 06:08 WBC 4.04 L (4.50-10.00) X 10*3/uL RBC 2.72 L (4.10-5.20) X 10*6/uL Hgb 8.3 L (12.0-15.0) g/dL Hct 27.0 L (37.2-46.3) % MCV 99.3 H (80.0-97.0) fL MCHC 30.7 L (32.0-37.0) g/dL RDW 18.9 H (11.5-14.5) % Plt Count 126 L (140-440) X 10*3/uL Plt Count Comment DECREASED A Absolute Nucleated RBC 0.09 H (0.00-0.00) X 10*3/uL Myelocytes % 3 H (0-0) % Lymphocytes # (Manual) 0.16 L (0.90-5.00) X 10*3/uL Monocytes # (Manual) 0.08 L (0.20-1.00) X 10*3/uL NRBC/100 WBC Diff 2.2 H (0.0-0.0) /100 WBCS Sodium (135-145) mmol/L Chloride (96-109) mmol/L Anion Gap (4.00-12.00) mmol/L BUN (9.0-27.0) mg/dL Creatinine (0.6-1.5) mg/dL Est GFR (CKD-EPI)AfAm (60.0-200.0) Est GFR (CKD-EPI)NonAf (60.0-200.0) BUN/Creatinine Ratio (12.00-20.00) Ratio Glucose (70-110) mg/dL POC Glucose (mg/dL) 254 H 198 H (75-99) mg/dL AST (13-35) U/L ALT (8-44) U/L Alkaline Phosphatase (41-126) U/L Albumin/Globulin Ratio (1.60-3.17) g/dL 09/10/20 09/10/20 09/10/20 Range/Units 06:08 07:47 11:52 WBC (4.50-10.00) X 10*3/uL RBC (4.10-5.20) X 10*6/uL Hgb (12.0-15.0) g/dL Hct (37.2-46.3) % MCV (80.0-97.0) fL MCHC (32.0-37.0) g/dL RDW (11.5-14.5) % Plt Count (140-440) X 10*3/uL Plt Count Comment Absolute Nucleated RBC (0.00-0.00) X 10*3/uL Myelocytes % (0-0) % Lymphocytes # (Manual) (0.90-5.00) X 10*3/uL Monocytes # (Manual) (0.20-1.00) X 10*3/uL NRBC/100 WBC Diff (0.0-0.0) /100 WBCS Sodium 133 L (135-145) mmol/L Chloride 95 L (96-109) mmol/L Anion Gap 15.20 H (4.00-12.00) mmol/L BUN 44.0 H (9.0-27.0) mg/dL Creatinine 5.1 H (0.6-1.5) mg/dL Est GFR (CKD-EPI)AfAm 10.4 L (60.0-200.0) Est GFR (CKD-EPI)NonAf 9.0 L (60.0-200.0) BUN/Creatinine Ratio 8.63 L (12.00-20.00) Ratio Glucose 172 H (70-110) mg/dL POC Glucose (mg/dL) 165 H 209 H (75-99) mg/dL AST 46 H (13-35) U/L ALT 242 H (8-44) U/L Alkaline Phosphatase 160 H (41-126) U/L Albumin/Globulin Ratio 1.31 L (1.60-3.17) g/dL Microbiology - Last 24 Hours (Table) 09/07/20 12:09 Blood Culture - Preliminary Blood No Growth after 48 hours
--- NOTE | 2020-09-10 14:39 | PN ---
PROGRESS NOTE Patient is seen for followup for end-stage renal disease. She is scheduled for hemodialysis today for a short treatment and then regular treatment tomorrow mostly for volume overload. Overall, the patient states she is feeling better. PHYSICAL EXAMINATION: Blood pressure is 144/75, heart rate 74 per minute. She is afebrile. EXAMINATION OF THE HEART: S1, S2. EXAMINATION OF THE LUNGS: Bilateral breath sounds are heard. Abdomen is soft, nontender. Examination of lower extremities shows edema 2+ bilaterally. The patient has significant abdominal distention as well. LABS: Labs from today show sodium 133, potassium 5.0, BUN 44, creatinine 5.1, hemoglobin 8.3 g/dL. ASSESSMENT: 1. End-stage renal disease, on hemodialysis on a Thursday, , Thursday schedule. Scheduled for extra treatment today mostly for volume overload. 2. Endocarditis, status post daptomycin and rifampin. 3. Hypertension with chronic kidney disease. 4. Metabolic bone disease. 5. Decompensated liver disease. PLAN: Hemodialysis today and then again in a.m. No need for further daptomycin as outpatient as per Infectious Disease. MMODL / IJN: [id number] /
[2020-09-10 15:27] VITALS: BP 142/93; PULSE 82; RESP 18; TEMP 97.6
[2020-09-10] MEDS: METOPROLOL TARTRATE 50 MG TAB PO SCH ×2 (16:07→16:27)
[2020-09-10] MEDS: FUROSEMIDE 40 MG TAB PO SCH (16:26)
--- NOTE | 2020-09-10 17:46 | PN ---
PROGRESS NOTE This is a 55-year-old white female who came in with elevated liver enzymes. She was supposed to get an MRI today, but her LFTs keep decreasing and the MRI machine broke. She was cleared for discharge by GI, at which time we are going to send her home. Physical examination is unchanged. Vital signs are stable. CARDIOVASCULAR: S1, S2. LUNGS: Clear. GI: Soft. ASSESSMENT: Transaminitis. Ultrasound shows hydrops gallbladder. No gallstones or thickening. Common bile duct dilated at 1 cm, likely dealing with medication-induced hepatitis, as LFTs are greatly improved after weaning off rifampin. She will be discharged home. Continue with dialysis as an outpatient. Prognosis is guarded. Continue with dialysis. Possibly be discharged home. MMODL / IJN: [id number] /
--- NOTE | 2020-09-10 19:01 | DS ---
DISCHARGE SUMMARY DATE OF DISCHARGE: 09/10/2020 This 55-year-old white female came in with severely elevated liver enzymes. Liver cirrhosis was ruled out. We thought it was medication-related, to rifampin; discontinued. LFTs continued to be decreased. She will go home on her regular home medications in stable condition. Prognosis guarded. Ambulate as tolerated. Follow up in office in a week or two. MARIANNE / DARVINN: [id number] /
--- NOTE | 2020-09-11 05:55 | P.PN ---
Progress Note - Text Progress Note Date: 09/10/20 REASON FOR FOLLOW UP: Endocarditis. MRSA. INTERVAL HISTORY: The patient is afebrile. The patient is breathing comfortably. Patient denies having any chest pain, shortness of breath or cough. No further nausea, vomiting. No abdominal pain. No vomiting or diarrhea. PHYSICAL EXAMINATION: Blood pressure 150/70 with a pulse of 70, temperature 98.1. She is 100% on room air. General description: The patient is a middle-aged female up in the chair in no distress. Respiratory system: Unlabored breathing, clear to auscultation anteriorly. Heart S1, S2. Regular rate and rhythm. ABDOMEN: Soft, mildly distended. No guarding. No rigidity. LABS: reviewed DIAGNOSTIC IMPRESSION/PLAN: Patient with MRSA endocarditis, admitted to the hospital with elevated liver enzymes more likely related to rifampin. The patient did well on the daptomycin. She will get a dose after dialysis today and that will be completion of her therapy , discussed with her subassemblies wirer , and close outpatient followup.
== END 2020-09-10 17:32 | disposition home or self-care (01) ==
LOC: EC 12:35 → 6NMEDSUR 14:38
PROVIDERS: ADMIT Family Medicine; ATTEND Family Medicine
DX: K83.1 Obstruction of bile duct (principal); R18.8 Other ascites; I13.2 Hypertensive heart and chronic kidney disease with heart failure and with stage 5 chronic kidney disease, or end stage renal disease; I50.32 Chronic diastolic (congestive) heart failure; N18.6 End stage renal disease; I33.0 Acute and subacute infective endocarditis; D63.1 Anemia in chronic kidney disease; E78.5 Hyperlipidemia, unspecified; E11.22 Type 2 diabetes mellitus with diabetic chronic kidney disease; K75.81 Nonalcoholic steatohepatitis (NASH); I27.20 Pulmonary hypertension, unspecified; K85.91 Acute pancreatitis with uninfected necrosis, unspecified; D61.818 Other pancytopenia; E88.89 Other specified metabolic disorders; I07.1 Rheumatic tricuspid insufficiency; K82.1 Hydrops of gallbladder; M89.8X9 Other specified disorders of bone, unspecified site; H35.63 Retinal hemorrhage, bilateral; H26.9 Unspecified cataract; Z79.4 Long term (current) use of insulin; Z79.899 Other long term (current) drug therapy; Z91.041 Radiographic dye allergy status; Z88.5 Allergy status to narcotic agent; Z88.1 Allergy status to other antibiotic agents; Z88.4 Allergy status to anesthetic agent; Z90.411 Acquired partial absence of pancreas; Z99.2 Dependence on renal dialysis; Z95.3 Presence of xenogenic heart valve; Z87.01 Personal history of pneumonia (recurrent); Z86.010 Personal history of colon polyps; Z86.14 Personal history of Methicillin resistant Staphylococcus aureus infection; Z81.1 Family history of alcohol abuse and dependence; Z80.9 Family history of malignant neoplasm, unspecified; Z82.49 Family history of ischemic heart disease and other diseases of the circulatory system
CPT/HCPCS: 96376 ×5; 96365; 96366 ×2; 96372; 96375 ×2; 99285; 36415; 94640 ×8; 80053 ×5; 80074; 85652; 82728; 82248; 82550 ×2; 83540; 83550; 83690; 84100; 84478; 85025 ×5; 86140; 87040; 76705; G0257 ×3; G0378 ×5; S0183; J2270 ×6; J2405 ×4; J0878 ×2; J0881; 90935

== ENCOUNTER → 2020-09-25 | Outpatient (CLI) | payer OTHER | END | disposition home or self-care (01) | LOC: LABWHC1 14:39 | PROVIDERS: ATTEND Internal Medicine | DX: Z53.9 Procedure and treatment not carried out, unspecified reason (principal) | CPT/HCPCS: 86850; 86900; 86901; 86920 ==

== ENCOUNTER 2020-12-01 05:22 | Inpatient (IN) | payer OTHER ==
[2020-12-01 06:17] LABS: Anisocytosis Slight; Basophils % (A) 1 %; Eosinophils # (A) 0.1 k/uL (0-0.7); Eosinophils % (A) 3 %; HCT 31.2 % (34.0-46.0); HGB 9.9 gm/dL (11.4-16.0); Hypochromasia Slight; Lymphocytes # (A) 0.3 k/uL (1.0-4.8); Lymphocytes % (A) 10 %; MCH 30.1 pg (25.0-35.0); MCHC 31.9 g/dL (31.0-37.0); MCV 94.6 fL (80.0-100.0); Mean Platelet Volume 7.9; Monocytes # (A) 0.3 k/uL (0-1.0); Monocytes % (A) 9 %; Neutrophils # (A) 2.5 k/uL (1.3-7.7); Neutrophils % (A) 77 %; Platelet Count 151 k/uL (150-450); WBC 3.2 k/uL (3.8-10.6)
[2020-12-01 06:24] LABS: Appearance,Urine Cloudy (Clear); Bacteria,Urine Moderate /hpf; Bilirubin,Urine Negative (Negative); Blood,Urine Negative (Negative); Budding Yeast,Urine Rare /hpf; Color,Urine Yellow; Glucose,Urine (UA) 3+ (Negative); Ketones,Urine Negative (Negative); Leukocyte Esterase,Urine Moderate (Negative); Nitrite,Urine Negative (Negative); PH, Urine 8.5 (5.0-8.0); Protein,Urine 3+ (Negative); RBC,Urine 1 /hpf (0-5); Specific Gravity,Urine 1.009 (1.001-1.035); Squamous Epithelial Cell,Urine 30 /hpf (0-4); Urobilinogen,Urine <2.0 mg/dL (<2.0); WBC,Urine 16 /hpf (0-5)
--- NOTE | 2020-12-01 06:42 | CT ---
EXAMINATION TYPE: CT abdomen pelvis wo con DATE OF EXAM: 12/01/2020 COMPARISON: 01/28/2020 HISTORY: LUQ pain CT DLP: 985.8 mGycm Automated exposure control for dose reduction was used. Images obtained without contrast from the diaphragm to the floor the pelvis. Lung bases are clear of consolidation. There is some groundglass interstitial infiltrate at the lung bases. Heart is slightly enlarged. There is previous cardiac valve surgery. There is small pericardia l effusion. There is no pleural effusion. There is moderate abdominal ascites fluid. Spleen is enlarged and measures 22 cm. Liver is enlarged a nd measures 26 cm. There is evidence for vascular calcification. There is significant atrophy of the [place] kidneys. I see no evidence of a pancreatic mass. Stomach is intact. Gallbladder is intact. Uterus is anteverted. Urinary bladder is empty. I see no pelvic mass. There is no evidence of a bowel obstruction. The lumbar spine is intact. There is narrowing at L5-S1 disc space. Bony pelvis is inta ct. IMPRESSION: Hepatosplenomegaly. Cardiomegaly. Moderately large amount of abdominal ascites fluid. Ascites fluid significantly increased compared to old exam. There is small pericardial effusion impro radha compared to old exam.
[2020-12-01 07:02] LABS: ALT <6 U/L (4-34); AST 18 U/L (14-36); African American GFR (CKD) 11 (>60 ml/min/1.73 sqM); Albumin 4.1 g/dL (3.5-5.0); Alkaline Phosphatase 114 U/L (38-126); Amylase 55 U/L (30-110); Anion Gap 11 mmol/L; Blood Urea Nitrogen 40 mg/dL (7-17); Calcium 9.2 mg/dL (8.4-10.2); Carbon Dioxide 35 mmol/L (22-30); Chloride 91 mmol/L (98-107); Glucose 212 mg/dL (74-99); Lipase 79 U/L (23-300); Non-African American GFR(CKD) 10 (>60 ml/min/1.73 sqM); Potassium 5.4 mmol/L (3.5-5.1); Sodium 137 mmol/L (137-145); Total Bilirubin 0.6 mg/dL (0.2-1.3); Total Protein 6.6 g/dL (6.3-8.2)
[2020-12-01] MEDS ORDERED: ACETAMINOPHEN TAB 325 MG TAB PO PRN (07:08)
[2020-12-01] MEDS ORDERED: NALOXONE 0.4 MG/ML 1 ML VIAL IV PRN (07:08)
[2020-12-01] MEDS: MORPHINE SULFATE 4 MG/ML SYRINGE IV PRN ×2 (08:33→19:22)
--- NOTE | 2020-12-01 12:34 | P.NPCON ---
History of Present Illness - Reason for Consult end stage renal disease - Chief Complaint Right upper quadrant pain - History of Present Illness This is a 55-year-old female with ESRD on dialysis Thursday. She came in because of right upper quadrant pain for the last few days he did a computed tomography scan of the abdomen shows hepatosplenomegaly which is chr onic, ascites which has increased and cardiomegaly. Amylase was 55 lipase was 79 both within normal limits liver function tests normal calcium 9.2 electrolytes potassium is 5.4 creatinine is 4.85 and BUN is 40 Urinalysis shows 3+ protein, rare budding yeast and moderate bacteria WBC 16. No complaints of dysuria the She continues to have pain on and off. No nausea vomiting no diarrhea no fever chills She is a chronic fluid abuser [facility] and [facility] say that she is 14 kg above her target weight and had an exit treatment yesterday. Patient told me that she only gains 1-2 L of fluid in between treatment which is not accurate as per the nursing staff at her dialysis unit and is a constant sullivan between her and the staff regarding the fluid gains She is known with diabetes mellitus and hyperlipidemia hypertension liver disease, bilateral retinal hemorrhages cataracts, history of necrotizing pancreatitis. Past Medical History Past Medical History: Blood Disorder, Heart Failure, Diabetes Mellitus, Dialysis, Hyperlipidemia, Hypertension, Liver Disease, Pneumonia, Renal Disease Additional Past Medical History / Comment(s): Pt recently admitted to [facility] on 08/02/20 with fluid overload/swelling. Other hx: MRSA infection in blood with IV ABX while at dialysis until 09/06/20, bilateral cataracts, recently diagnosed with bilateral retinal hemorrhages, hypertriglyceridemia-induced acute pancreatitis, THEN necrotizing pancreatitis. hemodialysis for acute kidney injury 2 months in 2009 after pancreatic OR, 11/2015 diagnosed w/ chronic kidney disease-hemodialysis -last hemodialysis 06/02/19, IDDM type II, past DKA, UTI, chronic anemia, frequent body cramping, occasional low back pain, carter's palsy x2, past L leg fx, possible liver disease-recent liver bx-results unknown per pt (2009). History of Any Multi-Drug Resistant Organisms: MRSA Date of last positivie culture/infection: 06/10/20 MDRO Source:: Blood Past Surgical History: Cardiac Valve Replacement, Orthopedic Surgery, Uterine Ablation Additional Past Surgical History / Comment(s): 08/26/17 colonoscopy with polypectomy/bx, pancreatic resection at [facility] 2009, bone marrow biopsies X2-last one 05/19/16,. dialysis chest port x 2 with removals, Left arm shunt placement for dialysis - December 2015 and a revision done with shunt. Left forearm Vein Revision - October 2019, liver biopsy.Lt arm fistula repair november 2020.heart valve repaced 2019 [facility]. chest chest wall port. left upper arm fistula 2020 Past Anesthesia/Blood Transfusion Reactions: No Reported Reaction Additional Past Anesthesia/Blood Transfusion Reaction / Comment(s): Pt has received blood transfusions without reaction. Past Psychological History: No Psychological Hx Reported Additional Psychological History / Comment(s): Pt resides at her mother in laws home at this time with spouse. They are her mother in laws caretakers. She is independent. She uses no assistive device. She drives. She receives antibiotic infusion while at dialysis. Smoking Status: Never smoker Past Alcohol Use History: None Reported Additional Past Alcohol Use History / Comment(s): Patient is a lifelong nonsmoker. Past Drug Use History: None Reported - Past Family History Brother(s) Family Medical History: No Reported History Mother Family Medical History: Cancer Additional Family Medical History / Comment(s): . Father Family Medical History: Hypertension Additional Family Medical History / Comment(s): alcoholism Medications and Allergies Home Medications Medication Instructions Recorded Confirmed Type cloNIDine HCL [Catapres] 0.3 mg PO TID@0530,1300,1900 12/16/16 12/01/20 History Prochlorperazine [Compazine] 5 mg PO BID PRN 10/26/17 12/01/20 History INSULIN LISPRO (humaLOG) [humaLOG] 10 unit SQ AC-TID 07/12/18 12/01/20 History hydrALAZINE HCL [Apresoline] 100 mg PO QID 12/14/18 12/01/20 History HYDROcodone/APAP 7.5-325MG [[place] 1 tab PO Q8H 11/08/19 12/01/20 History 7.5-325] Montelukast [Singulair] 10 mg PO HS@1900 11/08/19 12/01/20 History Insulin Glargine,Hum.rec.anlog See Protocol SQ HS 12/02/19 12/01/20 History [Basaglar Kwikpen U-100] Albuterol Sulfate [Proair Hfa] 2 puff INHALATION RT-Q6H PRN 01/28/20 12/01/20 History Sildenafil [Revatio] 20 mg PO TID@0530,1300,1900 04/20/20 12/01/20 History traMADol HCL [Ultram] 50 mg PO Q12H PRN 05/13/20 12/01/20 History Ascorbic Acid [Vitamin C] 500 mg PO DAILY@0530 07/09/20 12/01/20 History Metoprolol Tartrate [Lopressor] 50 mg PO TID 07/09/20 12/01/20 History Gabapentin [Neurontin] 100 mg PO TID 08/02/20 12/01/20 History Omeprazole 20 mg PO BID 08/02/20 12/01/20 History Benzonatate [Tessalon Perles] 100 mg PO TID PRN 08/13/20 12/01/20 History Furosemide [Lasix] 80 mg PO BID 08/13/20 12/01/20 History diazePAM [Valium] 5 mg PO BID 08/13/20 12/01/20 History Sodium Polystyrene Sulfonate 20 gm PO SUMOWEFR 09/06/20 12/01/20 History [Kayexalate] Fexofenadine HCl [Candice Allergy] 180 mg PO DAILY 12/01/20 12/01/20 History Sevelamer [Renvela] 2,400 mg PO AC-TID 12/01/20 12/01/20 History Sevelamer [Renvela] 800 mg PO DAILY 12/01/20 12/01/20 History Allergies Allergy/AdvReac Type Severity Reaction Status Date / Time Anesthetics - Amide Type - Allergy Unknown Verified 12/01/20 11:14 Select A Anesthetics - Andree Type- Allergy Unknown Verified 12/01/20 11:14 Parabens hydromorphone [From Dilaudid] Allergy Swelling Verified 12/01/20 11:14 ciprofloxacin [From Cipro] AdvReac AFFECTED Verified 12/01/20 11:14 EYESIGHT ciprofloxacin HCl AdvReac AFFECTED Verified 12/01/20 11:14 [From Cipro] EYESIGHT Iodinated Contrast Media AdvReac RENAL Verified 12/01/20 11:14 FAILURE Physical Exam Vitals: Vital Signs Temp Pulse Pulse Resp BP BP Pulse Ox 12/01/20 10:00 98.3 F 70 18 139/70 100 12/01/20 08:34 98.3 F 66 18 162/77 99 12/01/20 08:00 18 12/01/20 05:25 97.4 F L 73 18 164/78 98 Intake and Output 11/30/20 12/01/20 12/01/20 22:59 06:59 14:59 Other: Weight 83.915 kg 83.915 kg On exam she is awake alert oriented comfortable. HEENT exam no JVP neck is supple no facial asymmetry Lungs are clear to auscultation fair air entry bilaterally Heart sounds are unremarkable for any murmur rub gallop Abdomen is significant for fair amount of distention with ascites no masses could be felt. Extreme exam was 2-3+ edema Neurologically awake alert oriented Results - Lab Results Most recent lab results Calcium 9.2 mg/dL (8.4-10.2) 12/01/20 05:52 12/01/20 05:52 12/01/20 05:52 Assessment and Plan Assessment: Impression 1. ESRD on dialysis, with a permacath on the right but a newly repaired graft which is functioning on the left upper arm. 2. History of fluid abuse with 14 kg about target rate significant edema and ascites. 3. Diabetes mellitus with complications 4. Right upper quadrant pain undetermined cause no evidence of pancreatitis either by amylase lipase or ultrasound scan. Has hepatosplenomegaly and minimal ascites 5. Anemia off chronic kidney disease hemoglobin at target at 9.9 6. Mild degree of neutropenia 3200 white cells platelet count is 151,000 Recommendation 1. Will dialyze her today with pure ultrafiltration of 4 kg 2. workup for right upper quadrant pain. 3. Watch hemoglobin and continue Aranesp 40 g every week
[2020-12-01] MEDS: cloNIDine HCL 0.1 MG TAB PO SCH ×2 (12:41→19:20)
[2020-12-01] MEDS: SILDENAFIL 20 MG TAB PO SCH ×2 (12:43→19:20)
[2020-12-01] MEDS: METOPROLOL TARTRATE 50 MG TAB PO SCH ×2 (12:43→22:28)
[2020-12-01] MEDS: hydrALAZINE HCL 50 MG TAB PO SCH ×3 (12:43→22:28)
[2020-12-01] MEDS: INSULIN ASPART (NovoLOG) 100 UNIT/ML VIAL SQ SCH ×2 (12:47→18:46)
[2020-12-01 12:57] LABS: Glucose,Whole Blood 115 mg/dL (75-99)
[2020-12-01] MEDS ORDERED: DARBEPOETIN ALFA 40 MCG/0.4 ML SYRINGE SQ SCH (13:00)
[2020-12-01] MEDS: HYDROcodone/APAP 7.5-325MG 1 EACH TAB PO PRN ×2 (13:44→22:28)
[2020-12-01] MEDS: GABAPENTIN 100 MG CAP PO SCH ×2 (15:28→22:28)
--- NOTE | 2020-12-01 16:01 | US ---
EXAMINATION TYPE: US abdomen complete DATE OF EXAM: 12/01/2020 COMPARISON: Same day CT CLINICAL HISTORY: cirrhosis. LUQ pain EXAM MEASUREMENTS: Liver Length: 21.6 cm Gallbladder Wall: 0.3 cm CBD: 0.8 cm Spleen: 22.6 cm Right Kidney: 8.4 x 3.0 x 4.2 cm Left Kidney: 8.0 x 3.2 x 3.4 cm Pancreas: Obscured by bowel gas Liver: Enlarged, heterogeneous Gallbladder: Distended, lumen clear Evidence for sonographic Campos's sign: No CBD: ?Dilated Spleen: Enlarged Right Kidney: Atrophic Left Kidney: Atrophic Upper IVC: wnl Abd Aorta: Obscured by overlying bowel gas Similar findings compared to same day CT IMPRESSION: There is moderate abdominal ascites. There is hepatosplenomegaly. No gallstones. No dilated ducts. Th ere is significant renal atrophy. Gallbladder is large suggestive of some gallbladder dysfunction.
[2020-12-01 17:33] LABS: Glucose,Whole Blood 73 mg/dL (75-99)
[2020-12-01] MEDS: ATORVASTATIN 40 MG TAB PO SCH (19:20)
[2020-12-01] MEDS: MONTELUKAST 10 MG TAB PO SCH (19:20)
[2020-12-01] MEDS: diazePAM 5 MG TAB PO SCH (19:21)
[2020-12-01 20:12] LABS: Glucose,Whole Blood 178 mg/dL (75-99)
[2020-12-02] MEDS: MORPHINE SULFATE 4 MG/ML SYRINGE IV PRN ×3 (01:28→20:06)
[2020-12-02] MEDS: ONDANSETRON 4 MG/2 ML VIAL IVP PRN (01:52)
[2020-12-02 03:28] LABS: Glucose,Whole Blood 144 mg/dL (75-99)
[2020-12-02] MEDS: BENZONATATE 100 MG CAP PO PRN (05:41)
[2020-12-02] MEDS: cloNIDine HCL 0.1 MG TAB PO SCH ×3 (05:41→19:58)
[2020-12-02] MEDS: ASCORBIC ACID 500 MG TAB PO SCH (05:41)
[2020-12-02] MEDS: HYDROcodone/APAP 7.5-325MG 1 EACH TAB PO PRN ×2 (05:42→15:32)
[2020-12-02] MEDS: SILDENAFIL 20 MG TAB PO SCH ×3 (05:42→19:59)
[2020-12-02] MEDS: ALBUTEROL NEBULIZED 2.5 MG/3 ML INHALATION PRN ×2 (06:00→11:52)
[2020-12-02] MEDS: FUROSEMIDE 40 MG TAB PO SCH (07:51)
[2020-12-02] MEDS: GABAPENTIN 100 MG CAP PO SCH ×3 (07:51→21:14)
[2020-12-02] MEDS: diazePAM 5 MG TAB PO SCH ×2 (07:51→19:59)
[2020-12-02] MEDS: PANTOPRAZOLE 40 MG TABLET PO SCH (07:51)
[2020-12-02] MEDS: hydrALAZINE HCL 50 MG TAB PO SCH ×4 (07:51→21:14)
[2020-12-02] MEDS: METOPROLOL TARTRATE 50 MG TAB PO SCH ×3 (07:54→21:13)
[2020-12-02] MEDS: SODIUM POLYSTYRENE SULFONATE 15 GM/60 ML BOTTLE PO SCH (07:54)
[2020-12-02 07:59] LABS: Glucose,Whole Blood 165 mg/dL (75-99)
[2020-12-02] MEDS: INSULIN ASPART (NovoLOG) 100 UNIT/ML VIAL SQ SCH ×3 (08:00→20:03)
--- NOTE | 2020-12-02 08:14 | HP ---
HISTORY AND PHYSICAL A 55-year-old white female who came in with severely elevated abdomen swelling with possible ascites and fluid overload. Gained 20 pounds last week, possibly due to abdominal distention despite not missing dialysis. Admitted for possible cirrhosis and fluid overload. GI consult is pending. Amylase 55, lipase 79. Urinalysis is 3+ protein, 16 moderate bacteria, she is about 14 kg above her target weight. PAST MEDICAL HISTORY: She has history of diabetes mellitus, dyslipidemia, hypertension, bilateral retinal hemorrhages, cataracts with necrotizing pancreatitis, blood disorder, heart failure, dialysis, dyslipidemia, hypertension, liver disease, pneumonia, renal disease. FAMILY HISTORY: Mother with cancer. Father with hypertension, alcoholism. HOME MEDICINES: See list. PHYSICAL EXAMINATION: Temperature 97.4, pulse 16-18, blood pressure is 130s to 160s/70s. Cardiovascular S1- S2. Lungs rales at the bases. Hematology 2+ edema. Abdomen with severe distention LABORATORY DATA: White count 3.2, hemoglobin is 9.9, BUN is 40, creatinine 4.85. ASSESSMENT: End-stage renal disease, on dialysis. Apparently she has a history of fluid abuse, diabetes complications, right upper quadrant pain, possible ascites. She is neutropenic, platelet count 151,000. Prognosis guarded. Wait for GI consult. Renal consult. MMODL / IJN: [id number] /
--- NOTE | 2020-12-02 11:45 | CONS ---
CONSULTATION DATE OF CONSULTATION: 12/02/2020 REQUESTING PHYSICIAN: Dr. David Bragg. REASON FOR CONSULTATION: Abdominal pain and ascites. HISTORY OF PRESENT ILLNESS: The patient is a 55-year-old pleasant white female with history of end-stage renal disease on hemodialysis for the last 5 years duration, history of hypertension, diabetes mellitus, history of congestive heart failure, admitted to the hospital because of fluid overload and abdominal distention. Apparently the patient has been gaining significant amount of weight and gained at least 40 pounds in the last 2 or 3 weeks. She states that she has been undergoing dialysis 3 times a week and has not missed any dialysis recently. When she came to the emergency room, in the ER, she did have a CT of the abdomen and pelvis done that showed large amount of ascites, hepatosplenomegaly and small pericardial effusion noted. Liver was enlarged measuring 26 cm in size and there was evidence of splenomegaly. She subsequently had ultrasound of abdomen and once again showed moderate amount of abdominal ascites with hepatosplenomegaly. The patient denies any history of chronic liver disease. She thinks that she was investigated for chronic liver disease while she was at [facility] late last year when she had cardiac surgery with valve replacement done. She has no history of alcohol use. No history of jaundice or hepatitis in the past. No family history of chronic liver disease. PAST MEDICAL HISTORY: Significant for hypertension, hyperlipidemia, end-stage renal disease on hemodialysis, longstanding history of diabetes mellitus, gastroesophageal reflux disease. PAST SURGICAL HISTORY: Cardiac valve replacement, uterine ablation, colonoscopy in August of 2017, necrotizing pancreatitis with pancreatic resection at [facility] in 2009, dialysis catheter placement x2. FAMILY HISTORY: Mother had some kind of cancer. Father had hypertension. MEDICATIONS: Medications at home include Ultram, hydralazine, Valium, Catapres, Kayexalate, Revatio, Renvela, Compazine, omeprazole, Singulair, Lopressor, Pepin, Neurontin, Lasix, Tessalon, vitamin C, and ProAir. ALLERGIES: DILAUDID, CIPRO, IV DYE. SOCIAL HISTORY: No smoking. Occasional alcohol use. FAMILY HISTORY: As mentioned above. REVIEW OF SYSTEMS: CARDIOPULMONARY: No chest pain or shortness of breath. : No dysuria or hematuria. MUSCULOSKELETAL: Unremarkable. SKIN: Unremarkable. ENDOCRINE: Unremarkable PSYCHIATRIC: Unremarkable. NEUROLOGY: Unremarkable. ENT/VISION: Unremarkable. CONSTITUTIONAL: Weight gain of 40 pounds in two weeks. No fever, chills, night sweats. PHYSICAL EXAMINATION: GENERAL: She appears comfortable. VITAL SIGNS: Stable. Blood pressure 123/68, pulse rate is 71, temperature 98. HEENT: Examination unremarkable. Conjunctivae are pink. Sclerae anicteric. Oral cavity no lesions. NECK: No JVD or lymph node enlargement. CHEST: Clear to auscultation. HEART: Regular rate and rhythm. ABDOMEN: Soft, it was distended. There was some free fluid noted in the abdomen. EXTREMITIES: 2+ pedal edema noted. SKIN: No rashes. NEURO: She is alert and oriented x3. No focal deficits. LABS: WBC 3.2, hemoglobin 9.9, platelets are 151. AST and ALT are 18 and 6 respectively. T bilirubin and alkaline phosphatase are within normal limits. IMPRESSION: 1. New onset ascites in this lady who has history of chronic liver disease and in the past was investigated extensively and all workup was negative. In fact, she was admitted to the hospital in September of this year with elevated serum transaminases and at that time extensive workup was all negative. She was diagnosed with fatty liver disease and it appears that most likely we are dealing with fatty liver disease that has progressed to liver cirrhosis causing the new onset ascites. Her serum transaminases during this hospitalization are within normal limits. CT scan and ultrasound did show evidence of hepatosplenomegaly and a moderate amount of fluid in the abdomen. 2. End-stage renal disease on hemodialysis for the last 5 years. 3. Longstanding history of diabetes mellitus diagnosed 25 years ago. 4. History of hypertension and hyperlipidemia. RECOMMENDATIONS: 1. Schedule her for large-volume paracentesis for diagnostic and therapeutic purposes. 2. Continue with dialysis as per Nephrology. 3. Low-salt diet. 4. Monitor labs closely. 5. We will follow with you. Thank you for this consultation. MMODL / IJN: [id number] /
[2020-12-02 12:46] LABS: Glucose,Whole Blood 83 mg/dL (75-99)
--- NOTE | 2020-12-02 14:25 | P.PN ---
Subjective Progress Note Date: 12/02/20 Principal diagnosis: This is a 55-year-old female with ESRD on dialysis Thursday. She came in because site is abdominal distention and shortness of breath. She i s known with chronic liver disease likely fatty liver and ascites. She has history of chronic fluid abuse and is 14 kg above her target weight as per the [facility] unit Yesterday we'll dialyze her and 4 L were ultrafiltered without any problem. In fact she had extra treatment on Thursday which is outside of her Thursday schedule. She is scheduled for large volume paracentesis and has been seen by Dr. Escalera gastroneurology Objective - Vital Signs Vital signs: Vital Signs Temp 98.3 F 12/02/20 04:48 Pulse 76 12/02/20 12:03 Resp 16 12/02/20 07:29 BP 123/68 12/02/20 04:48 Pulse Ox 92 L 12/02/20 04:48 Intake & Output 12/01/20 12/02/20 12/02/20 18:59 06:59 18:59 Intake Total 200 480 Output Total 4000 Balance -3800 480 Weight 83.915 kg Intake: Oral 200 480 Output: Hemodialysis 4000 Other: # Voids 2 2 On examination she is awake alert oriented A chin exam no JVP neck is supple no facial asymmetry Lungs are clear to auscultation with less than optimal air entry Heart sounds unremarkable for any murmur rub gallop Abdomen is distended with ascites nontender Extremity exam was mild to moderate edema Neurologically awake alert oriented - Labs CBC & Chem 7: 12/01/20 05:52 12/01/20 05:52 Labs: Abnormal Lab Results - Last 24 Hours (Table) 12/01/20 12/01/20 12/02/20 Range/Units 17:32 20:11 03:27 POC Glucose (mg/dL) 73 L 178 H 144 H (75-99) mg/dL 12/02/20 Range/Units 07:58 POC Glucose (mg/dL) 165 H (75-99) mg/dL Microbiology - Last 24 Hours (Table) 12/01/20 05:58 Urine Culture - Preliminary Urine,Voided Assessment and Plan Assessment: Impression 1. ESRD on dialysis, Thursday with a permacath on the right but a newly repaired graft which is functioning on the left upper arm. Last dialysis was yesterday here 4 L ultrafiltrate at without any difficulty and she was dialyzed Thursday as well as an extra treatment in her own dialysis unit. 2. History of fluid abuse with 14 kg about target weight significant edema and ascites. 3. Diabetes mellitus with complications 4. Right upper quadrant pain undetermined cause no evidence of pancreatitis either by amylase lipase or ultrasound scan. Has hepatosplenomegaly and minimal ascites 5. Anemia off chronic kidney disease hemoglobin at target at 9.9 6. Mild degree of neutropenia 3200 white cells platelet count is 151,000 Recommendation 1. Will dialyze her tomorrow and will attempt 5 L 2. Schedule for ascites tap tomorrow
--- NOTE | 2020-12-02 14:47 | P.PN ---
Progress Note - Text Progress Note Date: 12/02/20 Presenting complaint: Distended abdomen Interval history: Diagnosed with cirrhosis likely from fatty liver. Portal hypertension and hepatosplenomegaly and ascites. On hemodialysis. December 02: Laying in bed. Slight short of breath. Abdomen distended. Eating present. Awaiting large volume paracentesis. Appetite is fair. Review of systems: Was done for constitutional, cardiovascular, GI, pulmonary. relevant finding as above On examination: VITAL SIGNS: 98.1, 79, 16, 1 51 x 65, 98% room air GENERAL APPEARANCE: BMI 32.8, laying in bed, awake. HEENT: Normal external appearance of nose and ear. Oral cavity normal EYES: Pupils equal. Conjunctiva normal. NECK: JVD not raised. Mass not palpable. RESPIRATORY: Respiratory effort increased. Lungs clear to auscultation. CARDIOVASCULAR: First and second sounds normal. Some edema. ABDOMEN: Soft. Distended. Dullness to percussion Liver and spleen not palpable. No tenderness. No mass palpable. PSYCHIATRY: Alert and oriented x3. Mood and affect normal. INVESTIGATIONS, reviewed in the clinical context: WBC 3.2 hemoglobin 9.9 platelets bun 51 potassium 5.4. 40 creatinine 4.85 Assessment and plan: -Large symptomatic ascites secondary to cirrhosis: Slow to respond Awaiting large volume paracentesis -Portal hypertension with hepatosplenomegaly secondary to cirrhosis Lasix -Cirrhosis secondary to fatty liver Follow-up with GI Diabetes mellitus type 2, chronically on insulin Follow Accu-Cheks -End-stage kidney disease on hemodialysis Hemodialysis, Thursday. Newly repaired graft in the left upper arm. Last treatment yesterday -Hyperlipidemia On Lipitor-Restless leg syndrome On Requip -Essential hypertension Catapres, hydralazine, Lopressor -Anemia of chronic kidney disease Follow H&H Care was discussed with the patient. Continue current medications. Been scheduled for large volume paracentesis.
[2020-12-02 17:34] LABS: Glucose,Whole Blood 81 mg/dL (75-99)
[2020-12-02] MEDS: MONTELUKAST 10 MG TAB PO SCH (19:59)
[2020-12-02] MEDS: ATORVASTATIN 40 MG TAB PO SCH (20:00)
[2020-12-02 20:17] LABS: Glucose,Whole Blood 144 mg/dL (75-99)
[2020-12-03] MEDS: ONDANSETRON 4 MG/2 ML VIAL IVP PRN ×2 (00:51→23:56)
[2020-12-03] MEDS: MORPHINE SULFATE 4 MG/ML SYRINGE IV PRN ×4 (00:59→20:22)
[2020-12-03] MEDS: CALCIUM CARBONATE 500 MG CHEWABLE PO PRN (03:20)
[2020-12-03] MEDS: SILDENAFIL 20 MG TAB PO SCH ×3 (05:11→20:28)
[2020-12-03] MEDS: ASCORBIC ACID 500 MG TAB PO SCH (05:11)
[2020-12-03] MEDS: cloNIDine HCL 0.1 MG TAB PO SCH ×3 (05:11→20:29)
[2020-12-03 07:07] LABS: Glucose,Whole Blood 155 mg/dL (75-99)
[2020-12-03] MEDS: BENZONATATE 100 MG CAP PO PRN (07:09)
[2020-12-03] MEDS: METOPROLOL TARTRATE 50 MG TAB PO SCH ×3 (08:12→20:28)
[2020-12-03] MEDS: INSULIN ASPART (NovoLOG) 100 UNIT/ML VIAL SQ SCH ×3 (08:13→17:49)
[2020-12-03] MEDS: FUROSEMIDE 40 MG TAB PO SCH (08:13)
[2020-12-03] MEDS: diazePAM 5 MG TAB PO SCH ×2 (08:13→20:28)
[2020-12-03] MEDS: PANTOPRAZOLE 40 MG TABLET PO SCH (08:13)
[2020-12-03] MEDS: hydrALAZINE HCL 50 MG TAB PO SCH ×4 (08:13→20:29)
[2020-12-03] MEDS: GABAPENTIN 100 MG CAP PO SCH ×3 (08:13→20:41)
[2020-12-03] MEDS: SODIUM POLYSTYRENE SULFONATE 15 GM/60 ML BOTTLE PO SCH (08:22)
[2020-12-03 09:10] LABS: INR 1.2 (<1.2); Prothrombin Time 12.4 sec (9.0-12.0)
[2020-12-03 12:19] LABS: Glucose,Whole Blood 162 mg/dL (75-99)
[2020-12-03] MEDS: ALBUMIN HUMAN 25% 50 ML in EMPTY BAG 1 BAG IVPB SCH ×2 (13:15→13:38)
--- NOTE | 2020-12-03 14:37 | US ---
Ultrasound-guided paracentesis. DATE OF EXAM: 12/03/2020 CLINICAL HISTORY: Ascites The procedure was discussed with the patient. The risks, complications, benefits, and alternatives we re discussed and any questions were answered. Informed consent was obtained. The patient was placed s upine on the ultrasound table and prepped and draped in the usual sterile fashion. All elements of maximal barrier technique were utilized. Under ultrasound guidance, access into the right lower quadrant was obtained, via the paracentesis catheter system and direct ultrasound guidanc e. Approximately 5.1 liters of straw-colored fluid was removed. The patient was stable throughout the pr ocedure and remained stable upon discharge from Department of Radiology. IMPRESSION: Successful paracentesis under ultrasound guidance.
--- NOTE | 2020-12-03 17:02 | P.PN ---
Subjective Progress Note Date: 12/03/20 Principal diagnosis: ascites This is a 55-year-old the patient had reported she had gained 40 pounds from last 2 or 3 weeks. She states she's been undergoing dialysis 3 times a week has not missed any dialysis recently. On admission she had a CT of the abdomen and pelvis that showed a large amount of ascites, hepatosplenomegaly and small pericardial effusion was noted. Liver was enlarged measuring 26 cm inside and evidence of splenomegaly. she denies history of chronic liver disease however she has been admitted previously and states that she thinks that she's had inve stigation for chronic liver disease when she was at [facility] late last year when she had cardiac surgery with valve replacement done. No history of alcohol use.She underwent a paracentesis today with 5.1 L of fluid removed. Objective - Vital Signs Vital signs: Vital Signs Temp 97.2 F L 12/03/20 12:40 Pulse 88 12/03/20 12:40 Resp 21 12/03/20 12:40 BP 146/71 12/03/20 12:40 Pulse Ox 96 12/03/20 11:57 Intake & Output 12/02/20 12/03/20 12/03/20 18:59 06:59 18:59 Intake Total 200 240 Output Total 450 1800 Balance 200 -210 -1800 Intake: Oral 200 240 Output: Emesis 450 Hemodialysis 1800 Other: Voiding Method Toilet # Voids 2 2 - Exam General appearance: The patient is alert, oriented, appears in no acute distress. HET: Head is normocephalic and atraumatic. Conjunctiva pink. Sclera anicteric. Neck: Supple without lymphadenopathy. Abdomen: Soft, nontender, nondistended with bowel sounds. No guarding or rigidity. Extremities: Normal skin color and turgor. No pedal edema Skin: No rashes, no jaundice Neurological: No focal deficits. Alert and oriented 3. - Labs CBC & Chem 7: 12/01/20 05:52 12/01/20 05:52 Labs: Abnormal Lab Results - Last 24 Hours (Table) 12/02/20 12/03/20 12/03/20 Range/Units 20:15 07:05 08:43 PT 12.4 H (9.0-12.0) sec INR 1.2 H (<1.2) POC Glucose (mg/dL) 144 H 155 H (75-99) mg/dL 12/03/20 Range/Units 12:05 PT (9.0-12.0) sec INR (<1.2) POC Glucose (mg/dL) 162 H (75-99) mg/dL Microbiology - Last 24 Hours (Table) 12/01/20 05:58 Urine Culture - Final Urine,Voided Assessment and Plan (1) Ascites Narrative/Plan: new onset ascites in a lady with a history of chronic liver disease and in the past was investigated extensively at [facility] with workup being negative. In fact she was admitted to the hospital September of this year with elevated serum transaminases and at that time extensive workup was all negative. She was diagnosed with fatty liver disease and appears that most likely we are dealing with fatty liver disease that has progressed to liver cirrhosis causing new onset ascites. Her serum transaminases during this hospitalization are within normal limits. CAT scan and ultrasound did show evidence of hepatosplenomegaly and moderate amount of fluid in the abdomen. Current Visit: No Status: Acute Code(s): R18.8 - OTHER ASCITES SNOMED Code(s): 606040067 (2) Chronic kidney disease with end stage renal failure on dialysis Current Visit: No Status: Acute Code(s): N18.6 - END STAGE RENAL DISEASE; Z99.2 - DEPENDENCE ON RENAL DIALYSIS SNOMED Code(s): 286969066 (3) Diabetes Current Visit: No Status: Acute Code(s): E11.9 - TYPE 2 DIABETES MELLITUS WITHOUT COMPLICATIONS SNOMED Code(s): 22541091 Plan: 1. Continue symptomatic and supportive care 2. Patient is status post large volume paracentesis 3. Albumin ordered 4. Continue low-sodium diet 5. Monitor labs closely 6. Thank you for this consultation, we will continue to follow. Dr. Andrei Guaman I agree with the dictator's note, documented as a scribe by Alesia Garcia.
[2020-12-03 17:03] LABS: Glucose,Whole Blood 74 mg/dL (75-99)
[2020-12-03 20:03] LABS: Appearance,BF Clear; Nucleated Cells, Body Fluid 195 /uL; RBC, Body Fluid 155 /uL
[2020-12-03 20:05] LABS: Mononuclear WBC,Body Fluid 100 %; Total Cells Counted,Body Fluid 5
[2020-12-03] MEDS: MONTELUKAST 10 MG TAB PO SCH (20:27)
[2020-12-03] MEDS: ATORVASTATIN 40 MG TAB PO SCH (20:28)
[2020-12-03 20:41] LABS: Glucose,Whole Blood 161 mg/dL (75-99)
[2020-12-03 22:03] LABS: Albumin, Fluid Source Paracentesis Fluid; Total Protein, Body Fluid 4300 mg/dL
[2020-12-04] MEDS: BENZONATATE 100 MG CAP PO PRN (01:49)
[2020-12-04] MEDS: MORPHINE SULFATE 4 MG/ML SYRINGE IV PRN ×4 (01:50→20:43)
[2020-12-04] MEDS: cloNIDine HCL 0.1 MG TAB PO SCH ×3 (04:59→21:25)
[2020-12-04] MEDS: ASCORBIC ACID 500 MG TAB PO SCH (04:59)
[2020-12-04] MEDS: SILDENAFIL 20 MG TAB PO SCH ×3 (04:59→20:43)
--- NOTE | 2020-12-04 06:21 | PN ---
PROGRESS NOTE She is a 55-year-old white female, status post paracentesis with 5.1 L removed for liver cirrhosis. Cardiovascular: S1, S2. Lungs clear. GI is distended, but decreased from before. History of alcohol abuse. Vital signs stable, afebrile. Labs reviewed. ASSESSMENT: New onset ascites, possibly due to fatty liver, which is worse with liver cirrhosis. Monitor labs. Possibly discharge home to workup as an outpatient and more paracentesis as an outpatient. MMODL / IJN: [id number] /
[2020-12-04 06:27] LABS: Anisocytosis Slight; Basophils % (A) 1 %; Eosinophils # (A) 0.1 k/uL (0-0.7); Eosinophils % (A) 1 %; HCT 34.4 % (34.0-46.0); HGB 10.5 gm/dL (11.4-16.0); Hypochromasia Slight; Lymphocytes # (A) 0.5 k/uL (1.0-4.8); Lymphocytes % (A) 10 %; MCH 29.5 pg (25.0-35.0); MCHC 30.5 g/dL (31.0-37.0); MCV 96.6 fL (80.0-100.0); Macrocytosis Slight; Mean Platelet Volume 8.1; Monocytes # (A) 0.4 k/uL (0-1.0); Monocytes % (A) 8 %; Neutrophils # (A) 4.3 k/uL (1.3-7.7); Neutrophils % (A) 78 %; Platelet Count 164 k/uL (150-450); RBC 3.57 m/uL (3.80-5.40); RDW 17.9 % (11.5-15.5); WBC 5.5 k/uL (3.8-10.6)
[2020-12-04 06:39] LABS: ALT 9 U/L (4-34); AST 23 U/L (14-36); African American GFR (CKD) 7 (>60 ml/min/1.73 sqM); Albumin 4.3 g/dL (3.5-5.0); Albumin/Globulin Ratio 1.8; Alkaline Phosphatase 114 U/L (38-126); Anion Gap 17 mmol/L; Blood Urea Nitrogen 61 mg/dL (7-17); Calcium 9.7 mg/dL (8.4-10.2); Carbon Dioxide 26 mmol/L (22-30); Chloride 90 mmol/L (98-107); Globulin 2.4 g/dL; Glucose 140 mg/dL (74-99); Non-African American GFR(CKD) 6 (>60 ml/min/1.73 sqM); Sodium 133 mmol/L (137-145); Total Bilirubin 1.1 mg/dL (0.2-1.3); Total Protein 6.7 g/dL (6.3-8.2)
[2020-12-04 06:41] LABS: INR 1.2 (<1.2)
[2020-12-04 06:46] LABS: Potassium 6.4 mmol/L (3.5-5.1)
[2020-12-04 07:09] LABS: Glucose,Whole Blood 152 mg/dL (75-99)
[2020-12-04] MEDS: INSULIN ASPART (NovoLOG) 100 UNIT/ML VIAL SQ SCH ×3 (08:14→18:23)
[2020-12-04] MEDS: hydrALAZINE HCL 50 MG TAB PO SCH ×5 (08:14→21:25)
[2020-12-04] MEDS: diazePAM 5 MG TAB PO SCH ×2 (08:14→20:43)
[2020-12-04] MEDS: PANTOPRAZOLE 40 MG TABLET PO SCH (08:14)
[2020-12-04] MEDS: FUROSEMIDE 40 MG TAB PO SCH (08:14)
[2020-12-04] MEDS: METOPROLOL TARTRATE 50 MG TAB PO SCH ×3 (08:14→21:25)
[2020-12-04] MEDS: GABAPENTIN 100 MG CAP PO SCH ×3 (08:14→21:25)
--- NOTE | 2020-12-04 09:52 | P.PN ---
Subjective Progress Note Date: 12/04/20 Principal diagnosis: ascites This is a 55-year-old the patient had reported she had gained 40 pounds from last 2 or 3 weeks. She states she's been undergoing dialysis 3 times a week has not missed any dialysis recently. On admission she had a CT of the abdomen and pelvis that showed a large amount of ascites, hepatosplenomegaly and small pericardial effusion was noted. Liver was enlarged measuring 26 cm inside and evidence of splenomegaly. she denies history of chronic liver disease however she has been admitted previously and states that she thinks that she's had inve stigation for chronic liver disease when she was at [facility] late last year when she had cardiac surgery with valve replacement done. No history of alcohol use. She underwent a paracentesis yesterday with 5.1 L of fluid removed. Patient denies any nausea, vomiting, or abdominal pain. She will get dialysis again today. Nephrology is following. Fluid studies consistent with portal hypertension and show albumin gradient more consistent with heart disease which is often seen with right heart failure. Fluid protein is also elevated at 4300, again consistent with right heart failure. The patient is denying any abdominal pain, nausea, or vomiting. States abdominal distention has improved since paracentesis. Objective - Vital Signs Vital signs: Vital Signs Temp 97.9 F 12/04/20 05:00 Pulse 74 12/04/20 05:00 Resp 18 12/04/20 05:00 BP 114/63 12/04/20 05:00 Pulse Ox 98 12/04/20 05:00 Intake & Output 12/03/20 12/04/20 12/04/20 18:59 06:59 18:59 Intake Total 540 540 Output Total 1800 900 Balance -1260 -360 Intake: Oral 540 540 Output: Emesis 900 Hemodialysis 1800 Other: Voiding Method Toilet Toilet # Voids 2 # Bowel Movements 0 - Exam General appearance: The patient is alert, oriented, appears in no acute distress. HET: Head is normocephalic and atraumatic. Conjunctiva pink. Sclera anicteric. Neck: Supple without lymphadenopathy. Abdomen: Soft, nontender, distended with bowel sounds. No guarding or rigidity. Extremities: Normal skin color and turgor. No pedal edema Skin: No rashes, no jaundice Neurological: No focal deficits. Alert and oriented 3. - Labs CBC & Chem 7: 12/04/20 05:48 12/04/20 05:48 Labs: Abnormal Lab Results - Last 24 Hours (Table) 12/03/20 12/03/20 12/03/20 Range/Units 12:05 17:02 20:40 RBC (3.80-5.40) m/uL Hgb (11.4-16.0) gm/dL MCHC (31.0-37.0) g/dL RDW (11.5-15.5) % Lymphocytes # (1.0-4.8) k/uL INR (<1.2) Sodium (137-145) mmol/L Potassium (3.5-5.1) mmol/L Chloride (98-107) mmol/L BUN (7-17) mg/dL Creatinine (0.52-1.04) mg/dL Glucose (74-99) mg/dL POC Glucose (mg/dL) 162 H 74 L 161 H (75-99) mg/dL 12/04/20 12/04/20 12/04/20 Range/Units 05:48 05:48 05:48 RBC 3.57 L (3.80-5.40) m/uL Hgb 10.5 L (11.4-16.0) gm/dL MCHC 30.5 L (31.0-37.0) g/dL RDW 17.9 H (11.5-15.5) % Lymphocytes # 0.5 L (1.0-4.8) k/uL INR 1.2 H (<1.2) Sodium 133 L (137-145) mmol/L Potassium 6.4 H* (3.5-5.1) mmol/L Chloride 90 L (98-107) mmol/L BUN 61 H (7-17) mg/dL Creatinine 7.50 H* (0.52-1.04) mg/dL Glucose 140 H (74-99) mg/dL POC Glucose (mg/dL) (75-99) mg/dL 12/04/20 Range/Units 07:08 RBC (3.80-5.40) m/uL Hgb (11.4-16.0) gm/dL MCHC (31.0-37.0) g/dL RDW (11.5-15.5) % Lymphocytes # (1.0-4.8) k/uL INR (<1.2) Sodium (137-145) mmol/L Potassium (3.5-5.1) mmol/L Chloride (98-107) mmol/L BUN (7-17) mg/dL Creatinine (0.52-1.04) mg/dL Glucose (74-99) mg/dL POC Glucose (mg/dL) 152 H (75-99) mg/dL Assessment and Plan (1) Ascites Narrative/Plan: new onset ascites in a lady with a history of chronic liver disease and in the past was investigated extensively at [facility] with workup being negative. In fact she was admitted to the hospital September of this year with elevated serum transaminases and at that time extensive workup was all negative. She was diagnosed with fatty liver disease and appears that most likely we are dealing with fatty liver disease that has progressed to liver cirrhosis causing new onset ascites. Her serum transaminases during this hospitalization are within normal limits. CAT scan and ultrasound did show evidence of hepatosplenomegaly and moderate amount of fluid in the abdomen. Patient underwent paracentesis yesterday with fluid studies consistent with portal hypertension. Albumin gradient more consistent with heart disease, often seen with right heart failure. Patient also had elevation in her fluid protein at 4300 which is also common with right heart strain. Current Visit: No Status: Acute Code(s): R18.8 - OTHER ASCITES SNOMED Code(s): 041695221 (2) Chronic kidney disease with end stage renal failure on dialysis Current Visit: No Status: Acute Code(s): N18.6 - END STAGE RENAL DISEASE; Z99.2 - DEPENDENCE ON RENAL DIALYSIS SNOMED Code(s): 431428853 (3) Diabetes Current Visit: No Status: Acute Code(s): E11.9 - TYPE 2 DIABETES MELLITUS WITHOUT COMPLICATIONS SNOMED Code(s): 81282479 Plan: 1. Continue symptomatic and supportive care 2. Patient is status post large volume paracentesis with fluid studies 3. Continue low-sodium diet 4. Monitor labs closely 5. Diuretics per nephrology 6. Thank you for this consultation, we will continue to follow. Patient is clear for discharge from gastroenterology. Dr. Andrei Guaman I agree with the dictator's note, documented as a scribe by Alesia Garcia.
[2020-12-04 11:25] LABS: Glucose,Whole Blood 124 mg/dL (75-99)
--- NOTE | 2020-12-04 14:27 | PN ---
PROGRESS NOTE Patient is seen for followup for end-stage renal disease. The patient is status post paracentesis yesterday. We had about 5 L of fluid removed. This morning her potassium was elevated although she had a treatment yesterday. The patient denies eating anything significantly high in potassium. She has not had an obvious GI bleed at this point. Hemoglobin is stable as well. The patient is scheduled for hemodialysis again today. PHYSICAL EXAMINATION: Blood pressure is 112/67, heart rate 70 per minute. She is afebrile. Examination of the heart S1, S2. Examination of the lungs, bilateral breath sounds are heard. Abdomen is soft, nontender, distended with ascites. Exam of lower extremities: Edema 2+ bilaterally. [employer] exam grossly intact. LAB: Show sodium 133, potassium 6.4, chloride 90, creatinine 7.5. ASSESSMENT: 1. End-stage renal disease on hemodialysis normally on a Thursday, , Thursday schedule. Had an extra treatment yesterday for volume overload. The patient will be dialyzed again today. 2. Hyperkalemia, expect improvement with hemodialysis today. I will adjust the potassium bath. No obvious GI bleed noted, possible recirculation. The patient has an IJ PermCath. We will repeat labs tomorrow after dialysis today. 3. Anemia of chronic disease. 4. Ascites, status post paracentesis done yesterday with about 5.1 L of fluid removed. PLAN: Hemodialysis today on a 1K bath. Goal UF of about 2-3 L and repeat labs tomorrow in a.m. MMODL / IJN: [id number] /
[2020-12-04 17:33] LABS: Glucose,Whole Blood 171 mg/dL (75-99)
[2020-12-04 20:11] LABS: Glucose,Whole Blood 169 mg/dL (75-99)
[2020-12-04] MEDS: ATORVASTATIN 40 MG TAB PO SCH (20:43)
[2020-12-04] MEDS: MONTELUKAST 10 MG TAB PO SCH (20:43)
--- NOTE | 2020-12-05 05:05 | PN ---
PROGRESS NOTE 55-year-old white female with abdominal pain, cirrhosis, 5.1 L of fluid removed, negative for malignancy of the fluid. Diuresis. Risk factor modification and outpatient paracentesis will have to be set up. To follow up with GI doctor. Continue with renal dialysis. Hyperkalemia was treated with Kayexalate today. Cardiovascular S1-S2. GI is distended with positive ascites. Psych: Fair mood and affect. Neurologic: Alert and oriented x3. ASSESSMENT AND PLAN: 1. Cirrhosis secondary to fatty liver, most likely. 2. Severe ascites, treated with paracentesis 5.1 L removed. 3. End-stage renal disease. 4. Hyperkalemia. 5. Give Kayexalate. 6. Dialysis. 7. Prognosis guarded. MMODL / IJN: [id number] /
[2020-12-05] MEDS: cloNIDine HCL 0.1 MG TAB PO SCH ×3 (06:12→19:06)
[2020-12-05] MEDS: ASCORBIC ACID 500 MG TAB PO SCH (06:12)
[2020-12-05] MEDS: SILDENAFIL 20 MG TAB PO SCH ×3 (06:12→19:06)
[2020-12-05 07:21] LABS: Glucose,Whole Blood 145 mg/dL (75-99)
[2020-12-05] MEDS: METOPROLOL TARTRATE 50 MG TAB PO SCH ×3 (07:56→21:17)
[2020-12-05] MEDS: diazePAM 5 MG TAB PO SCH ×2 (07:56→21:16)
[2020-12-05] MEDS: GABAPENTIN 100 MG CAP PO SCH ×3 (07:56→21:17)
[2020-12-05] MEDS: FUROSEMIDE 40 MG TAB PO SCH (07:56)
[2020-12-05] MEDS: PANTOPRAZOLE 40 MG TABLET PO SCH (07:57)
[2020-12-05] MEDS: INSULIN ASPART (NovoLOG) 100 UNIT/ML VIAL SQ SCH ×3 (07:57→17:25)
[2020-12-05] MEDS: hydrALAZINE HCL 50 MG TAB PO SCH ×4 (07:57→21:17)
[2020-12-05] MEDS: SODIUM POLYSTYRENE SULFONATE 15 GM/60 ML BOTTLE PO SCH (08:01)
--- NOTE | 2020-12-05 10:07 | P.PN ---
Subjective Progress Note Date: 12/05/20 Principal diagnosis: ascites This is a 55-year-old the patient had reported she had gained 40 pounds from last 2 or 3 weeks. She states she's been undergoing dialysis 3 times a week has not missed any dialysis recently. On admission she had a CT of the abdomen and pelvis that showed a large amount of ascites, hepatosplenomegaly and small pericardial effusion was noted. Liver was enlarged measuring 26 cm inside and evidence of splenomegaly. she denies history of chronic liver disease however she has been admitted previously and states that she thinks that she's had inve stigation for chronic liver disease when she was at [facility] late last year when she had cardiac surgery with valve replacement done. No history of alcohol use. She underwent a paracentesis yesterday with 5.1 L of fluid removed. Patient denies any nausea, vomiting, or abdominal pain. She will get dialysis again today. Nephrology is following. Fluid studies consistent with portal hypertension and show albumin gradient more consistent with heart disease which is often seen with right heart failure. Fluid protein is also elevated at 4300, again consistent with right heart failure. The patient is denying any abdominal pain, nausea, or vomiting. States abdominal distention has improved since paracentesis. Objective - Vital Signs Vital signs: Vital Signs Temp 98.4 F 12/05/20 04:30 Pulse 79 12/05/20 04:30 Resp 20 12/05/20 04:30 BP 138/72 12/05/20 04:30 Pulse Ox 93 L 12/05/20 04:30 Intake & Output 12/04/20 12/05/20 12/05/20 18:59 06:59 18:59 Intake Total 600 700 Output Total 4500 Balance -3900 700 Intake: Oral 600 700 Output: Hemodialysis 4500 Other: Voiding Method Toilet # Voids 2 3 - Exam General appearance: The patient is alert, oriented, appears in no acute distress . HET: Head is normocephalic and atraumatic. Conjunctiva pink. Sclera anicteric. Neck: Supple without lymphadenopathy. Abdomen: Soft, nontender, distended with bowel sounds. No guarding or rigi dity. Extremities: Normal skin color and turgor. No pedal edema Skin: No rashes, no jaundice Neurological: No focal deficits. Alert and oriented 3. - Labs CBC & Chem 7: 12/04/20 05:48 12/04/20 05:48 Labs: Abnormal Lab Results - Last 24 Hours (Table) 12/04/20 12/04/20 12/04/20 Range/Units 11:24 17:31 20:08 POC Glucose (mg/dL) 124 H 171 H 169 H (75-99) mg/dL 12/05/20 Range/Units 07:20 POC Glucose (mg/dL) 145 H (75-99) mg/dL Assessment and Plan (1) Ascites Narrative/Plan: new onset ascites in a lady with a history of chronic liver disease and in the past was investigated extensively at [facility] with workup being negative. In fact she was admitted to the hospital September of this year with elevated serum transaminases and at that time extensive workup was all negative. She was diagnosed with fatty liver disease and appears that most likely we are dealing with fatty liver disease that has progressed to liver cirrhosis causing new onset ascites. Her serum transaminases during this hospitalization are within normal limits. CAT scan and ultrasound did show evidence of hepatosplenomegaly and moderate amount of fluid in the abdomen. Patient underwent paracentesis yesterday with fluid studies consistent with portal hypertension. Albumin gradient more consistent with heart disease, often seen with right heart failure. Patient also had elevation in her fluid protein at 4300 which is also common with right heart strain. Current Visit: No Status: Acute Code(s): R18.8 - OTHER ASCITES SNOMED Code(s): 269550278 (2) Chronic kidney disease with end stage renal failure on dialysis Current Visit: No Status: Acute Code(s): N18.6 - END STAGE RENAL DISEASE; Z99.2 - DEPENDENCE ON RENAL DIALYSIS SNOMED Code(s): 769310062 (3) Diabetes Current Visit: No Status: Acute Code(s): E11.9 - TYPE 2 DIABETES MELLITUS WITHOUT COMPLICATIONS SNOMED Code(s): 41476809 Plan: 1. Continue symptomatic and supportive care 2. Patient is status post large volume paracentesis with fluid studies 3. Continue low-sodium diet 4. Monitor labs closely 5. Diuretics per nephrology 6. Thank you for this consultation, patient to follow up as needed with gastroenterology. We will sign off at this time. Dr. Andrei Guaman I agree with the dictator's note, documented as a scribe by Alesia Leblanc
[2020-12-05 12:07] LABS: Glucose,Whole Blood 166 mg/dL (75-99)
[2020-12-05 14:27] LABS: ALT 10 U/L (4-34); AST 22 U/L (14-36); African American GFR (CKD) 7 (>60 ml/min/1.73 sqM); Albumin 4.7 g/dL (3.5-5.0); Albumin/Globulin Ratio 1.7; Alkaline Phosphatase 119 U/L (38-126); Anion Gap 20 mmol/L; Blood Urea Nitrogen 51 mg/dL (7-17); Calcium 9.4 mg/dL (8.4-10.2); Carbon Dioxide 26 mmol/L (22-30); Chloride 91 mmol/L (98-107); Globulin 2.7 g/dL; Glucose 149 mg/dL (74-99); Non-African American GFR(CKD) 6 (>60 ml/min/1.73 sqM); Potassium 4.8 mmol/L (3.5-5.1); Sodium 137 mmol/L (137-145); Total Protein 7.4 g/dL (6.3-8.2)
[2020-12-05 14:32] LABS: Anisocytosis Slight; HCT 37.9 % (34.0-46.0); HGB 11.9 gm/dL (11.4-16.0); Hypochromasia Moderate; MCHC 31.3 g/dL (31.0-37.0); MCV 95.8 fL (80.0-100.0); Macrocytosis Slight; Mean Platelet Volume 7.7; Platelet Count 204 k/uL (150-450); RBC 3.95 m/uL (3.80-5.40); RDW 18.6 % (11.5-15.5)
[2020-12-05 15:05] LABS: Eosinophils # (M) 0.07 k/uL (0-0.7); Myelocytes # (M) 0.07 k/uL (0); Myelocytes % 1 %; Neutrophils % (M) 81 %; Nucleated Red Blood Cells 2 /100 WBC (0-0); Total Cells Counted 200
[2020-12-05 15:06] LABS: Lymphocytes # (M) 0.62 k/uL (1.0-4.8); Monocytes # (M) 0.62 k/uL (0-1.0); Neutrophils # (M) 5.59 k/uL (1.3-7.7); WBC 6.9 k/uL (3.8-10.6)
[2020-12-05 15:07] LABS: Polychromasia Present
[2020-12-05 17:24] LABS: Glucose,Whole Blood 133 mg/dL (75-99)
--- NOTE | 2020-12-05 17:38 | PN ---
PROGRESS NOTE The patient is seen for followup for CKD. She tolerated dialysis well yesterday. The patient had 4.5 L of fluid removed. She denies any significant complaints today. PHYSICAL EXAMINATION: Blood pressure 106/59, heart rate 70 per minute. She is afebrile. Examination of the heart S1, S2. Examination of lungs, bilateral breath sounds are heard. Abdomen is soft, nontender. Examination of lower extremities shows edema 1+ bilaterally. Abdomen is distended with ascites. LABS: On December 04 shows serum potassium 6.4, sodium 133. No labs done today. ASSESSMENT: 1. End-stage renal disease, on hemodialysis on a Thursday, , Thursday schedule. We will plan for dialysis tomorrow. 2. Hyperkalemia expect improvement with dialysis. 3. Volume overload, currently improved. 4. Ascites with chronic liver disease which has been worked up at [facility]. Etiology fatty liver disease, progression of liver cirrhosis. 5. Type 2 diabetes. PLAN: Hemodialysis in a.m. Check labs. Followup on labs. Maintain low-potassium diet. MMODL / IJN: [id number] /
[2020-12-05] MEDS: ATORVASTATIN 40 MG TAB PO SCH (19:06)
[2020-12-05] MEDS: MONTELUKAST 10 MG TAB PO SCH (19:06)
[2020-12-05 20:31] LABS: Glucose,Whole Blood 167 mg/dL (75-99)
[2020-12-05] MEDS: MORPHINE SULFATE 4 MG/ML SYRINGE IV PRN (22:17)
[2020-12-06] MEDS: ONDANSETRON 4 MG/2 ML VIAL IVP PRN (01:52)
[2020-12-06] MEDS: CALCIUM CARBONATE 500 MG CHEWABLE PO PRN (04:16)
[2020-12-06] MEDS: MORPHINE SULFATE 4 MG/ML SYRINGE IV PRN (04:16)
[2020-12-06] MEDS: cloNIDine HCL 0.1 MG TAB PO SCH ×3 (04:36→19:54)
[2020-12-06] MEDS: SILDENAFIL 20 MG TAB PO SCH ×3 (04:36→19:54)
[2020-12-06] MEDS: ASCORBIC ACID 500 MG TAB PO SCH (04:36)
[2020-12-06 06:33] LABS: Anisocytosis Slight; HCT 40.3 % (34.0-46.0); HGB 12.7 gm/dL (11.4-16.0); Hypochromasia Moderate; MCH 30.6 pg (25.0-35.0); MCHC 31.4 g/dL (31.0-37.0); MCV 97.3 fL (80.0-100.0); Macrocytosis Slight; Mean Platelet Volume 7.5; Platelet Count 200 k/uL (150-450); RBC 4.15 m/uL (3.80-5.40); RDW 18.9 % (11.5-15.5)
[2020-12-06 07:09] LABS: Glucose,Whole Blood 192 mg/dL (75-99)
[2020-12-06] MEDS: FUROSEMIDE 40 MG TAB PO SCH (07:43)
[2020-12-06] MEDS: GABAPENTIN 100 MG CAP PO SCH ×3 (07:43→21:33)
[2020-12-06] MEDS: PANTOPRAZOLE 40 MG TABLET PO SCH (07:43)
[2020-12-06] MEDS: hydrALAZINE HCL 50 MG TAB PO SCH ×4 (07:43→21:33)
[2020-12-06] MEDS: METOPROLOL TARTRATE 50 MG TAB PO SCH ×3 (07:43→21:33)
[2020-12-06] MEDS: diazePAM 5 MG TAB PO SCH ×2 (07:43→21:33)
[2020-12-06] MEDS: INSULIN ASPART (NovoLOG) 100 UNIT/ML VIAL SQ SCH ×3 (07:44→17:35)
[2020-12-06 09:31] LABS: Metamyelocytes # (M) 0.11 k/uL (0); Metamyelocytes % 1 %; Myelocytes % 2 %; Neutrophils % (M) 75 %; Nucleated Red Blood Cells 3 /100 WBC (0-0); Total Cells Counted 200
[2020-12-06 09:32] LABS: Eosinophils # (M) 0.32 k/uL (0-0.7); Lymphocytes # (M) 1.18 k/uL (1.0-4.8); Monocytes # (M) 1.07 k/uL (0-1.0); Myelocytes # (M) 0.21 k/uL (0); Neutrophils # (M) 8.03 k/uL (1.3-7.7); WBC 10.7 k/uL (3.8-10.6)
[2020-12-06 09:33] LABS: Polychromasia Present
[2020-12-06] MEDS ORDERED: MIDODRINE 5 MG TAB PO STA ×2 (10:28→10:52)
[2020-12-06] MEDS ORDERED: SODIUM CHLORIDE 0.9% 500 ML 500 ML IV STA (11:16)
[2020-12-06 11:26] LABS: Glucose,Whole Blood 160 mg/dL (75-99)
[2020-12-06 11:53] LABS: Anisocytosis Slight; HCT 30.8 % (34.0-46.0); Hypochromasia Slight; MCH 30.9 pg (25.0-35.0); MCHC 32.5 g/dL (31.0-37.0); MCV 95.1 fL (80.0-100.0); Macrocytosis Slight; Mean Platelet Volume 8.4; Platelet Count 157 k/uL (150-450); RBC 3.24 m/uL (3.80-5.40); RDW 19.2 % (11.5-15.5); WBC 5.5 k/uL (3.8-10.6)
[2020-12-06 13:31] VITALS: BMI 32.8
[2020-12-06 17:21] LABS: Glucose,Whole Blood 199 mg/dL (75-99)
[2020-12-06] MEDS: MONTELUKAST 10 MG TAB PO SCH (19:54)
[2020-12-06] MEDS: ATORVASTATIN 40 MG TAB PO SCH (19:54)
[2020-12-06 20:07] LABS: Glucose,Whole Blood 118 mg/dL (75-99)
[2020-12-06 21:06] LABS: African American GFR (CKD) 5.6 (60.0-200.0); Albumin 4.5 g/dL (3.80-4.90); Albumin/Globulin Ratio 1.67 (1.60-3.17); Anion Gap 28.9 mmol/L (4.00-12.00); BUN/Creat Ratio 7.18 Ratio (12.00-20.00); Calcium 7.8 mg/dL (8.7-10.3); Carbon Dioxide 17.1 mmol/L (21.6-31.8); Globulin 2.7 g/dL (1.6-3.3); Non-African American GFR(CKD) 4.8 (60.0-200.0); Potassium 5.6 mmol/L (3.5-5.5); Total Bilirubin 0.4 mg/dL (0.3-1.2); Total Protein 7.2 g/dL (6.2-8.2)
[2020-12-07] MEDS: CALCIUM CARBONATE 500 MG CHEWABLE PO PRN (02:48)
[2020-12-07] MEDS: HYDROcodone/APAP 7.5-325MG 1 EACH TAB PO PRN (02:51)
[2020-12-07] MEDS: SILDENAFIL 20 MG TAB PO SCH ×2 (04:41→12:32)
[2020-12-07] MEDS: ASCORBIC ACID 500 MG TAB PO SCH (04:41)
[2020-12-07] MEDS: cloNIDine HCL 0.1 MG TAB PO SCH ×2 (04:41→12:32)
[2020-12-07 06:04] LABS: Anisocytosis Slight; Basophils % (A) 1 %; Eosinophils # (A) 0.1 k/uL (0-0.7); Eosinophils % (A) 2 %; HCT 35.2 % (34.0-46.0); Hypochromasia Slight; Lymphocytes # (A) 0.5 k/uL (1.0-4.8); Lymphocytes % (A) 10 %; MCH 30.4 pg (25.0-35.0); MCHC 31.3 g/dL (31.0-37.0); MCV 97.1 fL (80.0-100.0); Macrocytosis Slight; Mean Platelet Volume 8.2; Monocytes # (A) 0.4 k/uL (0-1.0); Monocytes % (A) 7 %; Neutrophils % (A) 78 %; Platelet Count 137 k/uL (150-450); RBC 3.62 m/uL (3.80-5.40); RDW 18.8 % (11.5-15.5); WBC 5.2 k/uL (3.8-10.6)
--- NOTE | 2020-12-07 07:03 | PN ---
PROGRESS NOTE A 55-year-old white female. She has had 5 L of fluid removed via paracentesis a couple days ago. She underwent dialysis today. She said the dialysis lady did not know what she was doing and she was bleeding out of her right arm and became hypotensive despite 40 mg of midodrine. She was given a fluid bolus. Dialysis was stopped. possibly transfer to ICU, but she improved. She is sitting up in a chair, very upset about what happened to her today. Temp 98.4, pulse 79, respiratory 18-20, blood pressure 138/72, O2 93%. Cardiovascular S1, S2. Lungs are clear. GI soft. Extremities 2+ edema. GI is distended, possibly ascites wave. ASSESSMENT: 1. Ascites. 2. Chronic liver disease in the past. 3. New onset ascites secondary to fatty liver, otherwise, unsure why. Paracentesis showed portal hypertension fluid, albumin gradient more consistent with heart disease with right heart failure. 4. Chronic kidney disease with end-stage renal failure, on dialysis. 5. Diabetes. Will get Cardiology to see her as well as Pulmonary. Monitor for hypotension. Midodrine possibly will have to be given before dialysis. Paracentesis will have to be withheld if she becomes hypotensive. Prognosis extremely guarded. Consult Dr. Garay of hematology for bicytopenia. MMODL / IJN: [id number] /
[2020-12-07 07:29] LABS: Glucose,Whole Blood 155 mg/dL (75-99)
[2020-12-07] MEDS: FUROSEMIDE 40 MG TAB PO SCH (08:09)
[2020-12-07] MEDS: hydrALAZINE HCL 50 MG TAB PO SCH ×2 (08:09→12:32)
[2020-12-07] MEDS: INSULIN ASPART (NovoLOG) 100 UNIT/ML VIAL SQ SCH ×2 (08:09→12:32)
[2020-12-07] MEDS: diazePAM 5 MG TAB PO SCH (08:09)
[2020-12-07] MEDS: METOPROLOL TARTRATE 50 MG TAB PO SCH (08:09)
[2020-12-07] MEDS: GABAPENTIN 100 MG CAP PO SCH (08:09)
[2020-12-07] MEDS: PANTOPRAZOLE 40 MG TABLET PO SCH (08:09)
[2020-12-07] MEDS: SODIUM POLYSTYRENE SULFONATE 15 GM/60 ML BOTTLE PO SCH ×2 (08:10→08:15)
--- NOTE | 2020-12-07 10:20 | P.CRDCN ---
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 Patient follows in the office with Dr. Tesfaye. We have been asked to see the patient in consultation for hypotension. Patient examined at the bedside. Patient was undergoing hemodialysis yesterday when she became hypotensive with a SBP in the 60-70s. Patients blood pressure usually runs on the higher side. Patient states her blood pressure does decrease some during hemodialysis but never to this extent. The patient does report during her hemodialysis session yesterday her connection to her dialysis catheter was loose and she had blood "all over my body. It was everywhere". Patient received IV fluids and HD was stopped. This morning, her blood pressure is 158/77. She has been resumed on her antihypertensive medications. She is currently undergoing hemodialysis and tolerating it well with no hypotensive episodes noted. No EKG performed on admission Laboratory data: WBC 5.2. Hemoglobin 11.0. Platelet count 137. Sodium 138. Potassium 5.6. BUN 61. Creatinine 8.5. Current home cardiac medications include Lasix 80 mg twice a day, hydralazine 100 mg 4 times a day, Catapres 0.3 mg 3 times a day, and metoprolol tartrate 50 mg 3 times a day Most recent echocardiogram obtained in May 2020 revealed ejection fraction 50-55%. Mild aortic regurgitation. Cannot rule out vegetation. Bioprosthetic mitral valve. Severe tricuspid regurgitation. Severe pulmonary hypertension The patient underwent TK in June 2020 revealing mildly impaired LV function with ejection fraction 40-45%, normally functioning bioprosthetic mitral valve and possible vegetation of the lateral wall of the LV. The patient was transferred to [facility] for further evaluation. The patient was told this was possibly scar tissue and not recurrent endocarditis. No surgical intervention was performed at that time. REVIEW OF SYSTEMS: At the time of my exam: CONSTITUTIONAL: Denies fever or chills. HEENT: Denies blurred vision, vision changes, or eye pain. Denies hemoptysis CARDIOVASCULAR: Denies chest pain. Denies orthopnea. Denies PND. Denies palpitat ions RESPIRATORY: Denies shortness of breath. GASTROINTESTINAL: Denies abdominal pain. Denies nausea or vomiting. HEMATOLOGIC: Denies bleeding disorders. GENITOURINARY: Denies any blood in urine. SKIN: Denies pruitis. Denies rash. PHYSICAL EXAM: VITAL SIGNS: Reviewed. GENERAL: Well-developed in no acute distress. HEENT: Head is normocephalic. Pupils are equal, round. Sclerae anicteric. Mucous membranes of the mouth are moist. Neck supple. No JVD or thyromegaly LUNGS: Respirations even and unlabored. Lungs diminished with mild wheezing noted. HEART: Regular rate and rhythm. S1 and S2 heard. ABDOMEN: Soft. Ascites present. EXTREMITIES: Normal range of motion. No clubbing or cyanosis. Peripheral pulses intact. 1-2+ lower extremity edema NEUROLOGIC: Awake and alert. Oriented x 3. ASSESSMENT: Ascites, status post paracentesis Hypotension with hemodialysis, resolved Chronic diastolic heart failure Valvular heart disease History of mitral valve repair secondary to infective endocarditis End-stage renal disease on hemodialysis, Thursday Diabetes mellitus Hypertension Hyperlipidemia PLAN: Patient is currently tolerating dialysis with no hypotension noted. We will continue on patient's current medication regimen at this time. No further inpatient recommendations from a cardiac standpoint. The patient may be discharged home from a cardiac perspective and follow up outpatient with Dr. Tesfaye. Nurse practitioner note has been reviewed by physician. Signing provider agrees with the documented findings, assessment, and plan of care. Past Medical History Past Medical History: Blood Disorder, Heart Failure, Diabetes Mellitus, Dialysis, Hyperlipidemia, Hypertension, Liver Disease, Pneumonia, Renal Disease Additional Past Medical History / Comment(s): Pt recently admitted to [facility] on 08/02/20 with fluid overload/swelling. Other hx: MRSA infection in blood with IV ABX while at dialysis until 09/06/20, bilateral cataracts, recently diagnosed with bilateral retinal hemorrhages, hypertriglyceridemia-induced acute pancreatitis, THEN necrotizing pancreatitis. hemodialysis for acute kidney injury 2 months in 2009 after pancreatic OR, 11/2015 diagnosed w/ chronic kidney disease-hemodialysis -last hemodialysis 06/02/19, IDDM type II, past DKA, UTI, chronic anemia, frequent body cramping, occasional low back pain, carter's palsy x2, past L leg fx, possible liver disease-recent liver bx-results unknown per pt (2009). History of Any Multi-Drug Resistant Organisms: MRSA Date of last positivie culture/infection: 06/10/20 MDRO Source:: Blood Past Surgical History: Cardiac Valve Replacement, Orthopedic Surgery, Uterine Ablation Additional Past Surgical History / Comment(s): 08/26/17 colonoscopy with polypectomy/bx, pancreatic resection at [facility] 2009, bone marrow biopsies X2-last one 05/19/16,. dialysis chest port x 2 with removals, Left arm shunt placement for dialysis - December 2015 and a revision done with shunt. Left forearm Vein Revision - October 2019, liver biopsy.Lt arm fistula repair november 2020.heart valve repaced 2019 at [facility]. chest chest wall port. left upper arm fistula 2020 Past Anesthesia/Blood Transfusion Reactions: No Reported Reaction Additional Past Anesthesia/Blood Transfusion Reaction / Comment(s): Pt has received blood transfusions without reaction. Past Psychological History: No Psychological Hx Reported Additional Psychological History / Comment(s): Pt resides at her mother in laws home at this time with spouse. They are her mother in laws caretakers. She is independent. She uses no assistive device. She drives. She receives antibiotic infusion while at dialysis. Smoking Status: Never smoker Past Alcohol Use History: None Reported Additional Past Alcohol Use History / Comment(s): Patient is a lifelong nonsmoker. Past Drug Use History: None Reported - Past Family History Brother(s) Family Medical History: No Reported History Mother Family Medical History: Cancer Additional Family Medical History / Comment(s): . Father Family Medical History: Hypertension Additional Family Medical History / Comment(s): alcoholism Medications and Allergies Home Medications Medication Instructions Recorded Confirmed Type cloNIDine HCL [Catapres] 0.3 mg PO TID@0530,1300,1900 12/16/16 12/01/20 History Prochlorperazine [Compazine] 5 mg PO BID PRN 10/26/17 12/01/20 History INSULIN LISPRO (humaLOG) [humaLOG] 10 unit SQ AC-TID 07/12/18 12/01/20 History hydrALAZINE HCL [Apresoline] 100 mg PO QID 12/14/18 12/01/20 History HYDROcodone/APAP 7.5-325MG [[place] 1 tab PO Q8H 11/08/19 12/01/20 History 7.5-325] Montelukast [Singulair] 10 mg PO HS@1900 11/08/19 12/01/20 History Insulin Glargine,Hum.rec.anlog See Protocol SQ HS 12/02/19 12/01/20 History [Basaglely Sampen U-100] Albuterol Sulfate [Proair Hfa] 2 puff INHALATION RT-Q6H PRN 01/28/20 12/01/20 History Sildenafil [Revatio] 20 mg PO TID@0530,1300,1900 04/20/20 12/01/20 History traMADol HCL [Ultram] 50 mg PO Q12H PRN 05/13/20 12/01/20 History Ascorbic Acid [Vitamin C] 500 mg PO DAILY@0530 07/09/20 12/01/20 History Metoprolol Tartrate [Lopressor] 50 mg PO TID 07/09/20 12/01/20 History Gabapentin [Neurontin] 100 mg PO TID 08/02/20 12/01/20 History Omeprazole 20 mg PO BID 08/02/20 12/01/20 History Benzonatate [Tessalon Perles] 100 mg PO TID PRN 08/13/20 12/01/20 History Furosemide [Lasix] 80 mg PO BID 08/13/20 12/01/20 History diazePAM [Valium] 5 mg PO BID 08/13/20 12/01/20 History Sodium Polystyrene Sulfonate 20 gm PO SUMOWEFR 09/06/20 12/01/20 History [Kayexalate] Fexofenadine HCl [Candice Allergy] 180 mg PO DAILY 12/01/20 12/01/20 History Sevelamer [Renvela] 2,400 mg PO AC-TID 12/01/20 12/01/20 History Sevelamer [Renvela] 800 mg PO DAILY 12/01/20 12/01/20 History Allergies Allergy/AdvReac Type Severity Reaction Status Date / Time Anesthetics - Amide Type - Allergy Unknown Verified 12/01/20 11:14 Select A Anesthetics - Andree Type- Allergy Unknown Verified 12/01/20 11:14 Parabens hydromorphone [From Dilaudid] Allergy Swelling Verified 12/01/20 11:14 ciprofloxacin [From Cipro] AdvReac AFFECTED Verified 12/01/20 11:14 EYESIGHT ciprofloxacin HCl AdvReac AFFECTED Verified 12/01/20 11:14 [From Cipro] EYESIGHT Iodinated Contrast Media AdvReac RENAL Verified 12/01/20 11:14 FAILURE Physical Exam Vitals: Vital Signs Temp Pulse Resp BP Pulse Ox 12/07/20 05:00 98 F 74 16 158/77 97 12/06/20 21:20 152/74 12/06/20 20:10 68 18 12/06/20 19:46 97.8 F 68 18 150/72 97 12/06/20 15:47 97.9 F 57 L 18 102/61 12/06/20 14:56 114/69 12/06/20 12:40 98.2 F 60 17 102/61 96 12/06/20 11:57 59 L 94/57 99 12/06/20 11:36 102/61 12/06/20 11:32 96/50 12/06/20 11:30 95/38 12/06/20 11:23 89/46 12/06/20 11:05 88/43 12/06/20 11:01 57 L 100 12/06/20 11:00 77/42 12/06/20 10:55 56 L 14 79/35 100 12/06/20 10:53 69/30 Intake and Output 12/06/20 12/07/20 12/07/20 22:59 06:59 14:59 Intake Total 2280 600 Output Total 1000 400 Balance 1280 200 Intake: Oral 280 600 Hemodialysis 2000 Output: Emesis 400 Hemodialysis 1000 Other: Voiding Method Toilet # Voids 1 2 Results 12/07/20 05:33 12/06/20 06:41 Cardiac Enzymes 12/06/20 12/06/20 Range/Units 06:41 11:19 AST 28 (13-35) U/L Troponin I 0.030 (0.000-0.034) ng/mL CBC 12/06/20 12/07/20 Range/Units 10:48 05:33 WBC 5.5 5.2 (3.8-10.6) k/uL RBC 3.24 L 3.62 L (3.80-5.40) m/uL Hgb 10.0 L D 11.0 L (11.4-16.0) gm/dL Hct 30.8 L 35.2 (34.0-46.0) % Plt Count 157 137 L (150-450) k/uL Comprehensive Metabolic Panel 12/06/20 Range/Units 06:41 Sodium 138 (135-145) mmol/L Potassium 5.6 H (3.5-5.5) mmol/L Chloride 92 L (96-109) mmol/L Carbon Dioxide 17.1 L (21.6-31.8) mmol/L BUN 61.0 H (9.0-27.0) mg/dL Creatinine 8.5 H* (0.6-1.5) mg/dL Glucose 220 H (70-110) mg/dL Calcium 7.8 L (8.7-10.3) mg/dL AST 28 (13-35) U/L ALT 10 (8-44) U/L Alkaline Phosphatase 124 (41-126) U/L Total Protein 7.2 (6.2-8.2) g/dL Albumin 4.50 (3.80-4.90) g/dL Current Medications Generic Name Dose Route Start Last Admin Trade Name Freq PRN Reason Stop Dose Admin Acetaminophen 650 mg 12/01/20 07:08 Acetaminophen Tab 325 Mg Tab PO Q6HR PRN Mild Pain or Fever > 100.5 Hydrocodone Bitart/Acetaminophen 1 each 12/01/20 10:45 12/07/20 02:51 Hydrocodone/Apap 7.5-325mg 1 Each Tab PO 1 each Q8H PRN Administration Pain Albuterol Sulfate 2.5 mg 12/01/20 10:31 12/02/20 11:52 Albuterol Nebulized 2.5 Mg/3 Ml INHALATION 2.5 mg RT-Q6H PRN Administration Shortness Of Breath Ascorbic Acid 500 mg 12/02/20 05:30 12/07/20 04:41 Ascorbic Acid 500 Mg Tab PO 500 mg DAILY@0530 ANNI Administration Atorvastatin Calcium 40 mg 12/01/20 19:00 12/06/20 19:54 Atorvastatin 40 Mg Tab PO 40 mg HS@1900 ANNI Administration Benzonatate 100 mg 12/01/20 10:31 12/04/20 01:49 Benzonatate 100 Mg Cap PO 100 mg TID PRN Administration Cough Calcium Carbonate/Glycine 500 mg 12/01/20 10:31 12/07/20 02:48 Calcium Carbonate 500 Mg Chewable PO 500 mg TID PRN Administration Heartburn Clonidine 0.3 mg 12/01/20 13:00 12/07/20 04:41 Clonidine Hcl 0.1 Mg Tab PO 0.3 mg TID@0530,1300,1900 ANNI Administration Darbepoetin Drew 40 mcg 12/01/20 13:00 12/01/20 13:43 Darbepoetin Drew 40 Mcg/0.4 Ml Syringe SQ 40 mcg Q7D ANNI Administration Diazepam 5 mg 12/01/20 21:00 12/07/20 08:09 Diazepam 5 Mg Tab PO 5 mg BID ANNI Administration Furosemide 40 mg 12/02/20 09:00 12/07/20 08:09 Furosemide 40 Mg Tab PO 40 mg DAILY ANNI Administration Gabapentin 100 mg 12/01/20 16:00 12/07/20 08:09 Gabapentin 100 Mg Cap PO 100 mg TID ANNI Administration Hydralazine HCl 100 mg 12/01/20 13:00 12/07/20 08:09 Hydralazine Hcl 50 Mg Tab PO 100 mg QID ANNI Administration Insulin Aspart 10 unit 12/01/20 12:30 12/07/20 08:09 Insulin Aspart (Novolog) 100 Unit/Ml Vial SQ 10 unit AC-TID ANNI Administration Metoprolol Tartrate 50 mg 12/01/20 16:00 12/07/20 08:09 Metoprolol Tartrate 50 Mg Tab PO 50 mg TID ANNI Administration Montelukast Sodium 10 mg 12/01/20 19:00 12/06/20 19:54 Montelukast 10 Mg Tab PO 10 mg HS@1900 ANNI Administration Morphine Sulfate 4 mg 12/01/20 07:08 12/06/20 04:16 Morphine Sulfate 4 Mg/Ml Syringe IV 4 mg Q4HR PRN Administration Severe Pain Naloxone HCl 0.2 mg 12/01/20 07:08 Naloxone 0.4 Mg/Ml 1 Ml Vial IV Q2M PRN Opioid Reversal Ondansetron HCl 4 mg 12/01/20 07:08 12/06/20 01:52 Ondansetron 4 Mg/2 Ml Vial IVP 4 mg Q8HR PRN Administration Nausea And Vomiting Pantoprazole Sodium 40 mg 12/02/20 07:30 12/07/20 08:09 Pantoprazole 40 Mg Tablet PO 40 mg [id number]-[id number] ANNI Administration Ropinirole HCl 1 mg 12/01/20 16:00 12/07/20 08:09 Ropinirole Hcl 1 Mg Tab PO 1 mg TID ANNI Administration Sildenafil Citrate 20 mg 12/01/20 13:00 12/07/20 04:41 Sildenafil 20 Mg Tab PO 20 mg TID@0530,1300,1900 ANNI Administration Sodium Polystyrene Sulfonate 15 gm 12/02/20 09:00 12/07/20 08:15 Sodium Polystyrene Sulfonate 15 Gm/60 Ml Bottle PO 15 gm SUMOWEFR ANNI Administration Intake and Output 12/06/20 12/07/20 12/07/20 22:59 06:59 14:59 Intake Total 2280 600 Output Total 1000 400 Balance 1280 200 Intake: Oral 280 600 Hemodialysis 2000 Output: Emesis 400 Hemodialysis 1000 Other: Voiding Method Toilet # Voids 1 2 12/07/20 05:33 12/06/20 06:41
[2020-12-07 12:18] LABS: Glucose,Whole Blood 222 mg/dL (75-99)
[2020-12-07 12:32] VITALS: TEMP 97.6
[2020-12-07 14:13] VITALS: BP 128/62; PULSE 61; RESP 16
[2020-12-07 15:28] LABS: ALT <8 U/L (8-44); AST 20 U/L (13-35); Albumin/Globulin Ratio 1.52 (1.60-3.17); Alkaline Phosphatase 113 U/L (41-126); Calcium 8.6 mg/dL (8.7-10.3); Carbon Dioxide 19.2 mmol/L (21.6-31.8); Chloride 90 mmol/L (96-109); Globulin 2.7 g/dL (1.6-3.3); Glucose 143 mg/dL (70-110); Potassium 4.4 mmol/L (3.5-5.5); Sodium 137 mmol/L (135-145); Total Bilirubin 0.5 mg/dL (0.2-1.2); Total Protein 6.8 g/dL (6.2-8.2)
[2020-12-07 17:33] LABS: Non-African American GFR(CKD) 5.2 (60.0-200.0)
--- NOTE | 2020-12-07 20:34 | PN ---
PROGRESS NOTE Patient is seen for followup for end-stage renal disease. She was dialyzed this morning and we had about 2 L of fluid removal. Yesterday patient's blood pressure was low and only about a L was removed. PHYSICAL EXAMINATION: On examination today, blood pressure 140/70, heart rate 63 per minute. Patient is afebrile. Examination of the heart S1, S2. Examination of the lungs, bilateral breath sounds are heard. Abdomen is soft, nontender. Examination of lower extremities shows much improved edema. 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 LAB: Show sodium of 137, potassium 4.4, BUN 52, serum creatinine 8.0. ASSESSMENT: 1. End-stage renal disease, on hemodialysis on a Thursday, , Thursday schedule. 2. Volume overload, currently significantly improved. 3. 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 4. Chronic kidney disease mineral bone disorder. PLAN: The patient can be discharged post dialysis today. She is advised to follow up for dialysis as outpatient tomorrow at her scheduled time. MMODL / IJN: [id number] /
--- NOTE | 2020-12-07 21:10 | P.CONS ---
History of Present Illness - Reason for Consult Consult date: 12/06/20 Bicytopenia Requesting physician: David Bragg - History of Present Illness Follow Up for Anemia HPI : Ms Desouza is a pleasant WF, with multiple medical problems, who was seen by Dr De in 2009-, for low blood counts. Per the pt , this related to her WBC. She had a bone marrow done, and states that she was told she had " less than 5% risk of cancer". She did not f/u with Hem-Onc since, till 07/23. She was admitted to [facility] with sepsis due to toe infection. She developed pancytopenia, which was felt to be due to sepsis, with counts showing some improvement as she recovered. She has a h/o severe pancreatitis resulting in renal failure in 2009, requiring HD for a few mths. She developed AUDREY in 07/23 again, but recovered. She was placed back on HD in 11/23. She was noted to have a Hgb of 6.9 on 01/10/16 and received PRBC transfusion. Hgb fell to 6.2 again on 03/12/16 requiring repeat transfusion. She denied obvious bleeding. She was thus referred here for further evaluation and rec ommendations. Records and labs from 07/23 and other admissions to [facility] since were reviewed. Her bone marrow from 2010 had shown dyspoeitic changes. Additional labs were ordered which were negative other than a mild kappa elevation vs lambda with a ratio of 2.49 She is being evaluated for a renal transplant at [facility]. Thus a repeat bone marrow was done on 05/19/16, again showing mild dyspoeitic changes, with no evidence of progression. She denied any f/c/n/v/obvious bleeding. She is currently dealing with an URTI. Her WHITE is unchanged. Her ROS is otherwise as per HPI and negative out of 10. She was last seen in our office in 2017. Review of Systems All systems: negative Constitutional: Reports as per HPI Past Medical History Past Medical History: Blood Disorder, Heart Failure, Diabetes Mellitus, Dialysis, Hyperlipidemia, Hypertension, Liver Disease, Pneumonia, Renal Disease Additional Past Medical History / Comment(s): Pt recently admitted to [facility] on 08/02/20 with fluid overload/swelling. Other hx: MRSA infection in blood with IV ABX while at dialysis until 09/06/20, bilateral cataracts, recently diagnosed with bilateral retinal hemorrhages, hypertriglyceridemia-induced acute pancreatitis, THEN necrotizing pancreatitis. hemodialysis for acute kidney injury 2 months in 2009 after pancreatic OR, 11/2015 diagnosed w/ chronic kidney disease-hemodialysis -last hemodialysis 06/02/19, IDDM type II, past DKA, UTI, chronic anemia, frequent body cramping, occasional low back pain, carter's palsy x2, past L leg fx, possible liver disease-recent liver bx-results unknown per pt (2009). History of Any Multi-Drug Resistant Organisms: MRSA Year Discovered:: 06/10/20 MDRO Source:: Blood Past Surgical History: Cardiac Valve Replacement, Orthopedic Surgery, Uterine Ablation Additional Past Surgical History / Comment(s): 08/26/17 colonoscopy with polypectomy/bx, pancreatic resection at [facility] 2009, bone marrow biopsies X2-last one 05/19/16,. dialysis chest port x 2 with removals, Left arm shunt placement for dialysis - December 2015 and a revision done with shunt. Left forearm Vein Revision - October 2019, liver biopsy.Lt arm fistula repair november 2020.heart valve repaced 2019 at [facility]. chest chest wall port. left upper arm fistula 2020 Past Anesthesia/Blood Transfusion Reactions: No Reported Reaction Additional Past Anesthesia/Blood Transfusion Reaction / Comm: Pt has received blood transfusions without reaction. Past Psychological History: No Psychological Hx Reported Additional Psychological History / Comment(s): Pt resides at her mother in laws home at this time with spouse. They are her mother in laws caretakers. She is independent. She uses no assistive device. She drives. She receives antibiotic infusion while at dialysis. Smoking Status: Never smoker Past Alcohol Use History: None Reported Additional Past Alcohol Use History / Comment(s): Patient is a lifelong nonsmoker. Past Drug Use History: None Reported - Past Family History Brother(s) Family Medical History: No Reported History Mother Family Medical History: Cancer Additional Family Medical History / Comment(s): . Father Family Medical History: Hypertension Additional Family Medical History / Comment(s): alcoholism Medications and Allergies Home Medications Medication Instructions Recorded Confirmed Type cloNIDine HCL [Catapres] 0.3 mg PO TID@0530,1300,1900 12/16/16 12/01/20 History INSULIN LISPRO (humaLOG) [humaLOG] 10 unit SQ AC-TID 07/12/18 12/01/20 History hydrALAZINE HCL [Apresoline] 100 mg PO QID 12/14/18 12/01/20 History HYDROcodone/APAP 7.5-325MG [[place] 1 tab PO Q8H 11/08/19 12/01/20 History 7.5-325] Montelukast [Singulair] 10 mg PO HS@1900 11/08/19 12/01/20 History Insulin Glargine,Hum.rec.anlog See Protocol SQ HS 12/02/19 12/01/20 History [Basaglar Kwikpen U-100] Albuterol Sulfate [Proair Hfa] 2 puff INHALATION RT-Q6H PRN 01/28/20 12/01/20 History Sildenafil [Revatio] 20 mg PO TID@0530,1300,1900 04/20/20 12/01/20 History traMADol HCL [Ultram] 50 mg PO Q12H PRN 05/13/20 12/01/20 History Ascorbic Acid [Vitamin C] 500 mg PO DAILY@0530 07/09/20 12/01/20 History Metoprolol Tartrate [Lopressor] 50 mg PO TID 07/09/20 12/01/20 History Gabapentin [Neurontin] 100 mg PO TID 08/02/20 12/01/20 History Omeprazole 20 mg PO BID 08/02/20 12/01/20 History Benzonatate [Tessalon Perles] 100 mg PO TID PRN 08/13/20 12/01/20 History diazePAM [Valium] 5 mg PO BID 08/13/20 12/01/20 History Sodium Polystyrene Sulfonate 20 gm PO SUMOWEFR 09/06/20 12/01/20 History [Kayexalate] Fexofenadine HCl [Candice Allergy] 180 mg PO DAILY 12/01/20 12/01/20 History Sevelamer [Renvela] 2,400 mg PO AC-TID 12/01/20 12/01/20 History Sevelamer [Renvela] 800 mg PO DAILY 12/01/20 12/01/20 History Atorvastatin [Lipitor] 40 mg PO HS@1900 90 Days #90 tab 12/07/20 Rx Calcium Carbonate [Tums] 500 mg PO TID PRN chew 12/07/20 Rx Darbepoetin Drew [Aranesp] 40 mcg SQ Q7D syringe 12/07/20 Rx Furosemide [Lasix] 40 mg PO DAILY tab 12/07/20 Rx rOPINIRole HCL [Requip] 1 mg PO TID tab 12/07/20 Rx Allergies Allergy/AdvReac Type Severity Reaction Status Date / Time Anesthetics - Amide Type - Allergy Unknown Verified 12/01/20 11:14 Select A Anesthetics - Andree Type- Allergy Unknown Verified 12/01/20 11:14 Parabens hydromorphone [From Dilaudid] Allergy Swelling Verified 12/01/20 11:14 ciprofloxacin [From Cipro] AdvReac AFFECTED Verified 12/01/20 11:14 EYESIGHT ciprofloxacin HCl AdvReac AFFECTED Verified 12/01/20 11:14 [From Cipro] EYESIGHT Iodinated Contrast Media AdvReac RENAL Verified 12/01/20 11:14 FAILURE Physical Exam Vitals: Vital Signs Temp Pulse Resp BP Pulse Ox 12/07/20 12:32 97.6 F 63 17 140/70 97 12/07/20 05:00 98 F 74 16 158/77 97 12/06/20 21:20 152/74 12/06/20 20:10 68 18 12/06/20 19:46 97.8 F 68 18 150/72 97 12/06/20 15:47 97.9 F 57 L 18 102/61 12/06/20 14:56 114/69 Intake and Output 12/06/20 12/07/20 12/07/20 22:59 06:59 14:59 Intake Total 2280 600 Output Total 1000 400 Balance 1280 200 Intake: Oral 280 600 Hemodialysis 2000 Output: Emesis 400 Hemodialysis 1000 Other: Voiding Method Toilet Toilet # Voids 1 2 2 - Constitutional General appearance: cooperative, no acute distress - EENT Eyes: EOMI, PERRLA ENT: NA/AT - Neck Neck: normal ROM - Respiratory Respiratory: bilateral: diminished (bibasilar) - Cardiovascular Rhythm: regularly irregular leg Peripheral Edema: bilateral: 3+ - Gastrointestinal General gastrointestinal: distended, organomegaly - Integumentary Integumentary: pale - Neurologic Neurologic: CNII-XII intact - Musculoskeletal Musculoskeletal: generalized weakness - Psychiatric Psychiatric: A&O x's 3, appropriate affect, intact judgment & insight Results CBC & Chem 7: 12/07/20 05:33 12/07/20 05:33 Labs: Abnormal Lab Results - Last 24 Hours (Table) 12/06/20 12/06/20 12/06/20 Range/Units 06:41 17:04 20:06 RBC (3.80-5.40) m/uL Hgb (11.4-16.0) gm/dL RDW (11.5-15.5) % Plt Count (150-450) k/uL Lymphocytes # (1.0-4.8) k/uL Potassium 5.6 H (3.5-5.5) mmol/L Chloride 92 L (96-109) mmol/L Carbon Dioxide 17.1 L (21.6-31.8) mmol/L Anion Gap 28.90 H (4.00-12.00) mmol/L BUN 61.0 H (9.0-27.0) mg/dL Creatinine 8.5 H* (0.6-1.5) mg/dL Est GFR (CKD-EPI)AfAm 5.6 L (60.0-200.0) Est GFR (CKD-EPI)NonAf 4.8 L (60.0-200.0) BUN/Creatinine Ratio 7.18 L (12.00-20.00) Ratio Glucose 220 H (70-110) mg/dL POC Glucose (mg/dL) 199 H 118 H (75-99) mg/dL Calcium 7.8 L (8.7-10.3) mg/dL 12/07/20 12/07/20 12/07/20 Range/Units 05:33 07:21 12:16 RBC 3.62 L (3.80-5.40) m/uL Hgb 11.0 L (11.4-16.0) gm/dL RDW 18.8 H (11.5-15.5) % Plt Count 137 L (150-450) k/uL Lymphocytes # 0.5 L (1.0-4.8) k/uL Potassium (3.5-5.5) mmol/L Chloride (96-109) mmol/L Carbon Dioxide (21.6-31.8) mmol/L Anion Gap (4.00-12.00) mmol/L BUN (9.0-27.0) mg/dL Creatinine (0.6-1.5) mg/dL Est GFR (CKD-EPI)AfAm (60.0-200.0) Est GFR (CKD-EPI)NonAf (60.0-200.0) BUN/Creatinine Ratio (12.00-20.00) Ratio Glucose (70-110) mg/dL POC Glucose (mg/dL) 155 H 222 H (75-99) mg/dL Calcium (8.7-10.3) mg/dL Assessment and Plan (1) Normocytic anemia Status: Acute Code(s): D64.9 - ANEMIA, UNSPECIFIED SNOMED Code(s): 759913429 (2) Chronic kidney disease with end stage renal failure on dialysis Status: Acute Code(s): N18.6 - END STAGE RENAL DISEASE; Z99.2 - DEPENDENCE ON RENAL DIALYSIS SNOMED Code(s): 313944780 (3) Chronic liver disease Status: Acute Code(s): K76.9 - LIVER DISEASE, UNSPECIFIED SNOMED Code(s): 019786777 (4) Thrombocytopenia Status: Acute Code(s): D69.6 - THROMBOCYTOPENIA, UNSPECIFIED SNOMED Code(s): 403215959 Plan: Assessment and Recommendations: Normocytic Anemia: Likely secondary to her known hepatosplenomegaly and renal failure Mild Thrombocytopenia: Blood counts have not worsened from her baseline Epogen per nephrology Will further re-evaluate for iron/B12 deficiency and monoclonal proteins Physician Attest: I have completed the full history and physical and developed the completed impression and plan, agree with dictation, dictated as a scribe.
[2020-12-08 00:30] LABS: % Iron Saturation 24.69 (12.00-45.00)
[2020-12-08 00:43] LABS: Folate, Serum 9.5 ng/mL
[2020-12-08 01:09] LABS: Erythrocyte Sedimentation Rate 25 mm/Hr (0-30)
[2020-12-08 02:10] LABS: Ferritin 1617.1 ng/mL (10.0-291.0)
[2020-12-10 13:19] LABS: Immunoglobulin M 72.7 mg/dL (40.0-280.0)
== END 2020-12-07 16:43 | disposition home or self-care (01) | DRG 432 ==
LOC: EC 05:22 → 5NMEDONC 07:08 → OBSVTOIN 12-04 08:52
PROVIDERS: ADMIT Family Medicine; ATTEND Family Medicine
PROC: 5A1D70Z Performance of Urinary Filtration, Intermittent, Less than 6 Hours Per Day (ICD-10-PCS; 2020-12-01)
PROC: 0W9G3ZX Drainage of Peritoneal Cavity, Percutaneous Approach, Diagnostic (ICD-10-PCS; principal; 2020-12-03)
DX: K74.60 Unspecified cirrhosis of liver (principal); N18.6 End stage renal disease; I13.2 Hypertensive heart and chronic kidney disease with heart failure and with stage 5 chronic kidney disease, or end stage renal disease; R18.8 Other ascites; K76.6 Portal hypertension; I50.32 Chronic diastolic (congestive) heart failure; I31.3 Pericardial effusion (noninflammatory); D69.6 Thrombocytopenia, unspecified; I95.3 Hypotension of hemodialysis; E83.9 Disorder of mineral metabolism, unspecified; E11.36 Type 2 diabetes mellitus with diabetic cataract; D63.1 Anemia in chronic kidney disease; I50.82 Biventricular heart failure; E11.22 Type 2 diabetes mellitus with diabetic chronic kidney disease; Z99.2 Dependence on renal dialysis; Z79.4 Long term (current) use of insulin; R16.2 Hepatomegaly with splenomegaly, not elsewhere classified; K76.0 Fatty (change of) liver, not elsewhere classified; E87.5 Hyperkalemia; G25.81 Restless legs syndrome; K21.9 Gastro-esophageal reflux disease without esophagitis; E78.1 Pure hyperglyceridemia; E78.5 Hyperlipidemia, unspecified; M54.5 Low back pain; H26.9 Unspecified cataract; F10.11 Alcohol abuse, in remission; Z79.891 Long term (current) use of opiate analgesic; Z79.899 Other long term (current) drug therapy; Z87.19 Personal history of other diseases of the digestive system; Z95.2 Presence of prosthetic heart valve; Z86.14 Personal history of Methicillin resistant Staphylococcus aureus infection; Z87.01 Personal history of pneumonia (recurrent); Z87.440 Personal history of urinary (tract) infections; Z86.69 Personal history of other diseases of the nervous system and sense organs; Z87.81 Personal history of (healed) traumatic fracture; Z87.42 Personal history of other diseases of the female genital tract; Z98.890 Other specified postprocedural states; Z88.5 Allergy status to narcotic agent; Z88.4 Allergy status to anesthetic agent; Z88.1 Allergy status to other antibiotic agents; Z91.041 Radiographic dye allergy status; Z80.9 Family history of malignant neoplasm, unspecified; Z82.49 Family history of ischemic heart disease and other diseases of the circulatory system; Z81.1 Family history of alcohol abuse and dependence
CPT/HCPCS: 36415; 49083; 74176; 76700; 80053; 81001; 82042; 82150; 82607; 82728; 82746; 82784; 83540; 83550; 83615; 83690; 83883; 83921; 84157; 84443; 84484; 85025; 85027; 85045; 85610; 85652; 86038; 86334; 86431; 87086; 88108; 88305; 88341; 88342; 89050; 90935; 93005; 94640

== ENCOUNTER 2020-12-24 14:24 | Emergency (ER) | payer OTHER ==
[2020-12-24 15:01] VITALS: PULSE 74; TEMP 98
--- NOTE | 2020-12-24 15:54 | ED ---
Skin/Abscess/FB HPI - General Chief complaint: Skin/Abscess/Foreign Body Stated complaint: sores on legs Time Seen by Provider: 12/24/20 15:54 Source: patient Mode of arrival: ambulatory Limitations: no limitations - History of Present Illness Initial comments: Sara is a 55 -year-old female who presents to the emergency department today for evaluation of sores on the bilateral anterior shins which are weeping clear fluid as well as bruising around her fistula. Patient states that this morning when she woke up she noticed bruising around the fistula. No pain. No known trauma. She did have cataract surgery this morning but states that she was clear that blood pressure were not checked on the arm. Patient had a fistula placed approximately 2 months ago, she had a revision and a fistulogram performed about one month ago and she is scheduled to see her vascular surgeon Dr. Rey next week. She currently does not receive dialysis through the fistula. - Related Data Home Medications Medication Instructions Recorded Confirmed cloNIDine HCL [Catapres] 0.3 mg PO TID@0530,1300,1900 12/16/16 12/01/20 INSULIN LISPRO (humaLOG) [humaLOG] 10 unit SQ AC-TID 07/12/18 12/01/20 hydrALAZINE HCL [Apresoline] 100 mg PO QID 12/14/18 12/01/20 HYDROcodone/APAP 7.5-325MG [[place] 1 tab PO Q8H 11/08/19 12/01/20 7.5-325] Montelukast [Singulair] 10 mg PO HS@1900 11/08/19 12/01/20 Insulin Glargine,Hum.rec.anlog See Protocol SQ HS 12/02/19 12/01/20 [Basaglar Kwikpen U-100] Albuterol Sulfate [Proair Hfa] 2 puff INHALATION RT-Q6H PRN 01/28/20 12/01/20 Sildenafil [Revatio] 20 mg PO TID@0530,1300,1900 04/20/20 12/01/20 traMADol HCL [Ultram] 50 mg PO Q12H PRN 05/13/20 12/01/20 Ascorbic Acid [Vitamin C] 500 mg PO DAILY@0530 07/09/20 12/01/20 Metoprolol Tartrate [Lopressor] 50 mg PO TID 07/09/20 12/01/20 Gabapentin [Neurontin] 100 mg PO TID 08/02/20 12/01/20 Omeprazole 20 mg PO BID 08/02/20 12/01/20 Benzonatate [Tessalon Perles] 100 mg PO TID PRN 08/13/20 12/01/20 diazePAM [Valium] 5 mg PO BID 08/13/20 12/01/20 Sodium Polystyrene Sulfonate 20 gm PO SUMOWEFR 09/06/20 12/01/20 [Kayexalate] Fexofenadine HCl [Candice Allergy] 180 mg PO DAILY 12/01/20 12/01/20 Sevelamer [Renvela] 2,400 mg PO AC-TID 12/01/20 12/01/20 Sevelamer [Renvela] 800 mg PO DAILY 12/01/20 12/01/20 Previous Rx's Medication Instructions Recorded Atorvastatin [Lipitor] 40 mg PO HS@1900 90 Days #90 tab 12/07/20 Calcium Carbonate [Tums] 500 mg PO TID PRN chew 12/07/20 Darbepoetin Drew [Aranesp] 40 mcg SQ Q7D syringe 12/07/20 Furosemide [Lasix] 40 mg PO DAILY tab 12/07/20 rOPINIRole HCL [Requip] 1 mg PO TID tab 12/07/20 Allergies Allergy/AdvReac Type Severity Reaction Status Date / Time Anesthetics - Amide Type - Allergy Unknown Verified 12/24/20 15:01 Select A Anesthetics - Andree Type- Allergy Unknown Verified 12/24/20 15:01 Parabens hydromorphone [From Dilaudid] Allergy Swelling Verified 12/24/20 15:01 ciprofloxacin [From Cipro] AdvReac AFFECTED Verified 12/24/20 15:01 EYESIGHT ciprofloxacin HCl AdvReac AFFECTED Verified 12/24/20 15:01 [From Cipro] EYESIGHT Iodinated Contrast Media AdvReac RENAL Verified 12/24/20 15:01 FAILURE Review of Systems ROS Statement: Those systems with pertinent positive or pertinent negative responses have been documented in the HPI. ROS Other: All systems not noted in ROS Statement are negative. Past Medical History Past Medical History: Blood Disorder, Heart Failure, Diabetes Mellitus, Dialysis, Hyperlipidemia, Hypertension, Liver Disease, Pneumonia, Renal Disease Additional Past Medical History / Comment(s): Pt recently admitted to [facility] on 08/02/20 with fluid overload/swelling. Other hx: MRSA infection in blood with IV ABX while at dialysis until 09/06/20, bilateral cataracts, recently diagnosed with bilateral retinal hemorrhages, hypertriglyceridemia-induced acute pancreatitis, THEN necrotizing pancreatitis. hemodialysis for acute kidney injury 2 months in 2009 after pancreatic OR, 11/2015 diagnosed w/ chronic kidney disease-hemodialysis -last hemodialysis 06/02/19, IDDM type II, past DKA, UTI, chronic anemia, frequent body cramping, occasional low back pain, carter's palsy x2, past L leg fx, possible liver disease-recent liver bx-results unknown per pt (2009). History of Any Multi-Drug Resistant Organisms: MRSA Date of last positivie culture/infection: 06/10/20 MDRO Source:: Blood Past Surgical History: Cardiac Valve Replacement, Orthopedic Surgery, Uterine Ablation Additional Past Surgical History / Comment(s): 08/26/17 colonoscopy with polypectomy/bx, pancreatic resection at [facility] 2009, bone marrow biopsies X2-last one 05/19/16,. dialysis chest port x 2 with removals, Left arm shunt placement for dialysis - December 2015 and a revision done with shunt. Left forearm Vein Revision - October 2019, liver biopsy.Lt arm fistula repair november 2020.heart valve repaced 2019 at [facility]. chest chest wall port. left upper arm fistula 2020 Past Anesthesia/Blood Transfusion Reactions: No Reported Reaction Additional Past Anesthesia/Blood Transfusion Reaction / Comment(s): Pt has received blood transfusions without reaction. Past Psychological History: No Psychological Hx Reported Smoking Status: Never smoker Past Alcohol Use History: None Reported Past Drug Use History: None Reported - Past Family History Brother(s) Family Medical History: No Reported History Mother Family Medical History: Cancer Additional Family Medical History / Comment(s): . Father Family Medical History: Hypertension Additional Family Medical History / Comment(s): alcoholism General Exam - General Exam Comments Initial Comments: Physical Exam GENERAL: Chronically ill appearing HENT: Normocephalic, Atraumatic. EYES: Right eye bandaged due to cataract surgery PULMONARY: Unlabored respirations. No audible rales rhonchi or wheezing was noted. CARDIOVASCULAR: There is a regular rate and rhythm without any murmurs gallops or rubs. Thrill in left arm fistula ABDOMEN: Ascities SKIN: Wounds and anterior shins, draining clear fluid, no erythema or induration Purple discoloration with petechia around fistula, appears to be square in shape on lateral side : Deferred NEUROLOGIC: Patient is alert and oriented x3. Moving all extremities spontaneously MUSCULOSKELETAL: Normal extremities with adequate strength and full range of motion. 2+ lower extremity edema. No calf tenderness. PSYCHIATRIC: Normal psychiatric evaluation. Limitations: no limitations Course Vital Signs 12/24/20 12/24/20 12/24/20 14:57 17:05 18:12 Temperature 98.0 F 98.0 F Pulse Rate 74 74 Respiratory 18 17 18 Rate Blood Pressure 182/89 180/79 O2 Sat by Pulse 98 98 Oximetry Medical Decision Making - Medical Decision Making Patient was seen and evaluated, history was obtained from the patient and at bedside Patient with concern about losing around her fistula, patient comfortable with me taking photograph to transfer to her vascular surgeon Dr. Rey Patient care was discussed with Dr. Rey who recommended an ultrasound of the fistula be obtained as well as is no abnormalities patient is stable for discharge home and outpatient follow-up, ultrasound was obtained, collection technician at bedside stated that there is no signs of DVT in the arm, no extravasation of blood from the fistula, no obvious abnormalities noted. Patient remains awake alert oriented and hemodynamically stable. At this time patient stable for discharge home. Disposition Clinical Impression: ESRD (end stage renal disease) on dialysis, Abnormal bruising Disposition: HOME SELF-CARE Condition: Stable Additional Instructions: Follow up with Dr Rey as scheduled Is patient prescribed a controlled substance at d/c from ED?: No Referrals: David Bragg MD [Primary Care Provider] - 1-2 days
[2020-12-24 18:12] VITALS: BP 180/79; RESP 18
--- NOTE | 2020-12-25 07:44 | US ---
EXAMINATION TYPE: US venous doppler duplex UE LT DATE OF EXAM: 12/24/2020 COMPARISON: None. CLINICAL HISTORY: fistula bruising. Pt states redness and pain left arm near fistula SIDE PERFORMED: Left Left Arm: Negative for DVT, limited views of fistula appear patent Grayscale, color doppler, spectral doppler imaging performed of the deep veins of the left upper extr emity. There is normal flow, compressibility and vascular waveforms. Visualized portion of superfici al fistula shows patency on images 19 and 20. No adjacent focal fluid collection noted. IMPRESSION: No ultrasound evidence for acute deep or superficial venous thrombus in the left upper ex tremity.
== END 2020-12-24 18:12 | disposition home or self-care (01) ==
LOC: EC 14:24
DX: S80.11XA Contusion of right lower leg, initial encounter (principal); S80.12XA Contusion of left lower leg, initial encounter; E11.22 Type 2 diabetes mellitus with diabetic chronic kidney disease; I13.2 Hypertensive heart and chronic kidney disease with heart failure and with stage 5 chronic kidney disease, or end stage renal disease; I50.9 Heart failure, unspecified; N18.6 End stage renal disease; E78.5 Hyperlipidemia, unspecified; Z79.51 Long term (current) use of inhaled steroids; Z79.4 Long term (current) use of insulin; Z99.2 Dependence on renal dialysis; X58.XXXA Exposure to other specified factors, initial encounter
CPT/HCPCS: 99284

== ENCOUNTER 2021-01-05 20:17 | Emergency (ER) | payer OTHER ==
[2021-01-05 20:21] VITALS: RESP 18; TEMP 98.9
--- NOTE | 2021-01-05 21:29 | ED ---
Recheck HPI - General Chief Complaint: Recheck/Abnormal Lab/Rx Stated Complaint: Pain at port site Time Seen by Provider: 01/05/21 20:40 Source: patient Mode of arrival: ambulatory Limitations: no limitations - History of Present Illness Initial Comments: 55 year-old female patient presents for evaluation of right neck swelling and pain. She does have a dialysis catheter over the right upper chest. States her last dialysis was today. States she started having some mild discomfort and swelling the right side neck this evening. She denies any fever or chills. Denies any arm swelling or pain. Denies chest pain or shortness of breath. Patient denies any recent rash, cough, abdominal pain, nausea, vomiting, diarrhea, constipation, back pain, numbness, tingling, dizziness, weakness, hematuria, dysuria, urinary urgency, urinary frequency, headache, visual changes, or any other complaints. - Related Data Home Medications Medication Instructions Recorded Confirmed cloNIDine HCL [Catapres] 0.3 mg PO TID@0530,1300,1900 12/16/16 12/01/20 INSULIN LISPRO (humaLOG) [humaLOG] 10 unit SQ AC-TID 07/12/18 12/01/20 hydrALAZINE HCL [Apresoline] 100 mg PO QID 12/14/18 12/01/20 HYDROcodone/APAP 7.5-325MG [[place] 1 tab PO Q8H 11/08/19 12/01/20 7.5-325] Montelukast [Singulair] 10 mg PO HS@1900 11/08/19 12/01/20 Insulin Glargine,Hum.rec.anlog See Protocol SQ HS 12/02/19 12/01/20 [Basaglar Rosemarieikpen U-100] Albuterol Sulfate [Proair Hfa] 2 puff INHALATION RT-Q6H PRN 01/28/20 12/01/20 Sildenafil [Revatio] 20 mg PO TID@0530,1300,1900 04/20/20 12/01/20 traMADol HCL [Ultram] 50 mg PO Q12H PRN 05/13/20 12/01/20 Ascorbic Acid [Vitamin C] 500 mg PO DAILY@0530 07/09/20 12/01/20 Metoprolol Tartrate [Lopressor] 50 mg PO TID 07/09/20 12/01/20 Gabapentin [Neurontin] 100 mg PO TID 08/02/20 12/01/20 Omeprazole 20 mg PO BID 08/02/20 12/01/20 Benzonatate [Tessalon Perles] 100 mg PO TID PRN 08/13/20 12/01/20 diazePAM [Valium] 5 mg PO BID 08/13/20 12/01/20 Sodium Polystyrene Sulfonate 20 gm PO SUMOWEFR 09/06/20 12/01/20 [Kayexalate] Fexofenadine HCl [Candice Allergy] 180 mg PO DAILY 12/01/20 12/01/20 Sevelamer [Renvela] 2,400 mg PO AC-TID 12/01/20 12/01/20 Sevelamer [Renvela] 800 mg PO DAILY 12/01/20 12/01/20 Previous Rx's Medication Instructions Recorded Atorvastatin [Lipitor] 40 mg PO HS@1900 90 Days #90 tab 12/07/20 Calcium Carbonate [Tums] 500 mg PO TID PRN chew 12/07/20 Darbepoetin Drew [Aranesp] 40 mcg SQ Q7D syringe 12/07/20 Furosemide [Lasix] 40 mg PO DAILY tab 12/07/20 rOPINIRole HCL [Requip] 1 mg PO TID tab 12/07/20 Allergies Allergy/AdvReac Type Severity Reaction Status Date / Time Anesthetics - Amide Type - Allergy Unknown Verified 01/05/21 20:21 Select A Anesthetics - Andree Type- Allergy Unknown Verified 01/05/21 20:21 Parabens hydromorphone [From Dilaudid] Allergy Swelling Verified 01/05/21 20:21 ciprofloxacin [From Cipro] AdvReac AFFECTED Verified 01/05/21 20:21 EYESIGHT ciprofloxacin HCl AdvReac AFFECTED Verified 01/05/21 20:21 [From Cipro] EYESIGHT Iodinated Contrast Media AdvReac RENAL Verified 01/05/21 20:21 FAILURE Review of Systems ROS Statement: Those systems with pertinent positive or pertinent negative responses have been documented in the HPI. ROS Other: All systems not noted in ROS Statement are negative. Past Medical History Past Medical History: Blood Disorder, Heart Failure, Diabetes Mellitus, Dialysis, Hyperlipidemia, Hypertension, Liver Disease, Pneumonia, Renal Disease Additional Past Medical History / Comment(s): Pt recently admitted to [facility] on 08/02/20 with fluid overload/swelling. Other hx: MRSA infection in blood with IV ABX while at dialysis until 09/06/20, bilateral cataracts, recently diagnosed with bilateral retinal hemorrhages, hypertriglyceridemia-induced acute pancreatitis, THEN necrotizing pancreatitis. hemodialysis for acute kidney injury 2 months in 2009 after pancreatic OR, 11/2015 diagnosed w/ chronic kidney disease-hemodialysis -last hemodialysis 06/02/19, IDDM type II, past DKA, UTI, chronic anemia, frequent body cramping, occasional low back pain, carter's palsy x2, past L leg fx, possible liver disease-recent liver bx-results unknown per pt (2009). History of Any Multi-Drug Resistant Organisms: MRSA Date of last positivie culture/infection: 06/10/20 MDRO Source:: Blood Past Surgical History: Cardiac Valve Replacement, Orthopedic Surgery, Uterine Ablation Additional Past Surgical History / Comment(s): 08/26/17 colonoscopy with polypectomy/bx, pancreatic resection at [facility] 2009, bone marrow biopsies X2-last one 05/19/16,. dialysis chest port x 2 with removals, Left arm shunt placement for dialysis - December 2015 and a revision done with shunt. Left forearm Vein Revision - October 2019, liver biopsy.Lt arm fistula repair november 2020.heart valve repaced 2019 [facility]. chest chest wall port. left upper arm fistula 2020 Past Anesthesia/Blood Transfusion Reactions: No Reported Reaction Additional Past Anesthesia/Blood Transfusion Reaction / Comment(s): Pt has received blood transfusions without reaction. Past Psychological History: No Psychological Hx Reported Smoking Status: Never smoker Past Alcohol Use History: None Reported Past Drug Use History: None Reported - Past Family History Brother(s) Family Medical History: No Reported History Mother Family Medical History: Cancer Additional Family Medical History / Comment(s): . Father Family Medical History: Hypertension Additional Family Medical History / Comment(s): alcoholism General Exam Limitations: no limitations General appearance: alert, in no apparent distress, other (This is a well- developed, well-nourished adult female patient in no acute distress. Vital signs upon presentation are temperature 98.9F, pulse 80, respirations 18, blood pressure 170/72, pulse ox 95% on room air.) Eye exam: Present: normal appearance, PERRL, EOMI. Absent: scleral icterus, conjunctival injection, periorbital swelling ENT exam: Present: normal exam, normal oropharynx, mucous membranes moist Neck exam: Present: other (Mild soft tissue swelling noted to the right side of the neck, mild tenderness. No induration.). Absent: tenderness, meningismus, lymphadenopathy Respiratory exam: Present: normal lung sounds bilaterally. Absent: respiratory distress, wheezes, rales, rhonchi, stridor Cardiovascular Exam: Present: regular rate, normal rhythm, normal heart sounds. Absent: systolic murmur, diastolic murmur, rubs, gallop, clicks GI/Abdominal exam: Present: soft, normal bowel sounds. Absent: distended, tenderness, guarding, rebound, rigid Extremities exam: Present: normal inspection, full ROM, normal capillary refill, other (No swelling to the upper extremities. Radial pulses 2+ and equal bilaterally.). Absent: tenderness, pedal edema, joint swelling, calf tenderness Course Vital Signs 01/05/21 01/05/21 20:19 23:01 Temperature 98.9 F Pulse Rate 80 60 Respiratory 18 18 Rate Blood Pressure 170/72 173/95 O2 Sat by Pulse 95 97 Oximetry Medical Decision Making - Medical Decision Making 55-year-old female patient presents to the emergency department today for evaluation of tenderness in small amount of swelling to the right neck. This is the area where her dialysis port is inserted. she has no arm swelling. No fever or chills. We did perform ultrasound which showed no evidence for DVT and the right jugular though there is evidence for possible thrombus in the dialysis port. I did call and discuss the case with on-call vascular surgeon Dr. López. She states as long as the catheter is usable there should not be any problem, and that it is unlikely there is a thrombus in the port. To be discharged to follow-up with her primary care physician as needed. Return parameters were discussed in detail. She verbalizes understanding and agrees with this plan. Case discussed with my attending Dr. Cunningham. - Radiology Data Radiology results: report reviewed, image reviewed Ultrasound of the right neck was obtained. Impression by Dr. Ott shows no evidence for of deep vein thrombosis in the right jugular vein. Right jugular vein is patent. There is probably some thrombus in the dialysis port. Disposition Clinical Impression: Neck pain Disposition: HOME SELF-CARE Condition: Good Instructions (If sedation given, give patient instructions): Neck Pain (ED) Additional Instructions: Follow-up with her primary care physician for recheck in 1-2 days. Return to the emergency department a new, worsening, or concerning symptoms Is patient prescribed a controlled substance at d/c from ED?: No Referrals: David Bragg MD [Primary Care Provider] - 1-2 days Time of Disposition: 22:44
--- NOTE | 2021-01-05 21:43 | US ---
EXAMINATION TYPE: US venous doppler duplex UE RT DATE OF EXAM: 01/05/2021 COMPARISON: NONE CLINICAL HISTORY: Limit to right neck please; tenderness/swelling. EC ordered limited assessment of n ebony where patient has dialysis port and where she is having tenderness and swelling SIDE PERFORMED: Right Right Neck: Right IJV appears negative for thrombus, there are internal echoes seen within dialysis p ort. No other focal anomaly seen. IMPRESSION: No evidence of deep vein thrombosis in the right jugular vein. Right jugular vein is patent. There is probably some thrombus in the dialysis port.
[2021-01-05] MEDS: traMADol 50 MG TAB PO STA ×2 (21:53→21:58)
[2021-01-05] MEDS ORDERED: traMADol 50 MG TAB PO STA (21:55)
[2021-01-05 23:01] VITALS: BP 173/95; PULSE 60
== END 2021-01-05 23:00 | disposition home or self-care (01) ==
LOC: EC 20:17
DX: M54.2 Cervicalgia (principal); I13.0 Hypertensive heart and chronic kidney disease with heart failure and stage 1 through stage 4 chronic kidney disease, or unspecified chronic kidney disease; I50.9 Heart failure, unspecified; E11.9 Type 2 diabetes mellitus without complications; N18.9 Chronic kidney disease, unspecified; E78.5 Hyperlipidemia, unspecified; Z79.4 Long term (current) use of insulin; Z88.5 Allergy status to narcotic agent; Z88.1 Allergy status to other antibiotic agents; Z99.2 Dependence on renal dialysis; Z87.440 Personal history of urinary (tract) infections
CPT/HCPCS: 99283

== ENCOUNTER 2021-01-22 08:00 | Inpatient (IN) | payer OTHER ==
--- NOTE | 2021-01-22 08:43 | ED ---
General Adult HPI - General Chief complaint: Chest Pain Stated complaint: chest pain & dialysis Time Seen by Provider: 01/22/21 08:01 Source: patient, EMS, RN notes reviewed Mode of arrival: EMS Limitations: no limitations - History of Present Illness Initial comments: 55-year-old female presents emergency Department via EMS from dialysis center for fluid overload. Patient was going to her scheduled dialysis today states that she gained too much weight she states she gained approximate 9 kg. Patient states that she has been having ISSUES WITH EXTENSIVE FLUID OVERLOAD SHE STATES SHE'S HAVING SOME INCREASING SHORTNESS BREATH CHEST DISCOMFORT. PATIENT DENIES MISSING ANY TREATMENT DENIES ANY MEDICATION OR DIETARY CHANGES SHE STATES SHE HAS SWELLING OF HER LOWER EXTREMITIES, WEEPING. SHE DOES MAKE SMALL MODERATE URINE. - Related Data Home Medications Medication Instructions Recorded Confirmed cloNIDine HCL [Catapres] 0.3 mg PO TID@0530,1300,1900 12/16/16 12/01/20 INSULIN LISPRO (humaLOG) [humaLOG] 10 unit SQ AC-TID 07/12/18 12/01/20 hydrALAZINE HCL [Apresoline] 100 mg PO QID 12/14/18 12/01/20 HYDROcodone/APAP 7.5-325MG [[place] 1 tab PO Q8H 11/08/19 12/01/20 7.5-325] Montelukast [Singulair] 10 mg PO HS@1900 11/08/19 12/01/20 Insulin Glargine,Hum.rec.anlog See Protocol SQ HS 12/02/19 12/01/20 [Basaglar Rosemarieikpen U-100] Albuterol Sulfate [Proair Hfa] 2 puff INHALATION RT-Q6H PRN 01/28/20 12/01/20 Sildenafil [Revatio] 20 mg PO TID@0530,1300,1900 04/20/20 12/01/20 traMADol HCL [Ultram] 50 mg PO Q12H PRN 05/13/20 12/01/20 Ascorbic Acid [Vitamin C] 500 mg PO DAILY@0530 07/09/20 12/01/20 Metoprolol Tartrate [Lopressor] 50 mg PO TID 07/09/20 12/01/20 Gabapentin [Neurontin] 100 mg PO TID 08/02/20 12/01/20 Omeprazole 20 mg PO BID 08/02/20 12/01/20 Benzonatate [Tessalon Perles] 100 mg PO TID PRN 08/13/20 12/01/20 diazePAM [Valium] 5 mg PO BID 08/13/20 12/01/20 Sodium Polystyrene Sulfonate 20 gm PO SUMOWEFR 09/06/20 12/01/20 [Kayexalate] Fexofenadine HCl [Candice Allergy] 180 mg PO DAILY 12/01/20 12/01/20 Sevelamer [Renvela] 2,400 mg PO AC-TID 12/01/20 12/01/20 Sevelamer [Renvela] 800 mg PO DAILY 12/01/20 12/01/20 Previous Rx's Medication Instructions Recorded Atorvastatin [Lipitor] 40 mg PO HS@1900 90 Days #90 tab 12/07/20 Calcium Carbonate [Tums] 500 mg PO TID PRN chew 12/07/20 Darbepoetin Drew [Aranesp] 40 mcg SQ Q7D syringe 12/07/20 Furosemide [Lasix] 40 mg PO DAILY tab 12/07/20 rOPINIRole HCL [Requip] 1 mg PO TID tab 12/07/20 Allergies Allergy/AdvReac Type Severity Reaction Status Date / Time Anesthetics - Amide Type - Allergy Unknown Verified 01/05/21 20:21 Select A Anesthetics - Andree Type- Allergy Unknown Verified 01/05/21 20:21 Parabens hydromorphone [From Dilaudid] Allergy Swelling Verified 01/05/21 20:21 ciprofloxacin [From Cipro] AdvReac AFFECTED Verified 01/05/21 20:21 EYESIGHT ciprofloxacin HCl AdvReac AFFECTED Verified 01/05/21 20:21 [From Cipro] EYESIGHT Iodinated Contrast Media AdvReac RENAL Verified 01/05/21 20:21 FAILURE Review of Systems ROS Statement: Those systems with pertinent positive or pertinent negative responses have been documented in the HPI. ROS Other: All systems not noted in ROS Statement are negative. Past Medical History Past Medical History: Blood Disorder, Heart Failure, Diabetes Mellitus, Dialysis, Hyperlipidemia, Hypertension, Liver Disease, Pneumonia, Renal Disease Additional Past Medical History / Comment(s): Pt recently admitted to [facility] on 08/02/20 with fluid overload/swelling. Other hx: MRSA infection in blood with IV ABX while at dialysis until 09/06/20, bilateral cataracts, recently diagnosed with bilateral retinal hemorrhages, hypertriglyceridemia-induced acute pancreatitis, THEN necrotizing pancreatitis. hemodialysis for acute kidney injury 2 months in 2009 after pancreatic OR, 11/2015 diagnosed w/ chronic kidney disease-hemodialysis /-last hemodialysis 06/02/19, IDDM type II, past DKA, UTI, chronic anemia, frequent body cramping, occasional low back pain, carter's palsy x2, past L leg fx, possible liver disease-recent liver bx-results unknown per pt (2009). History of Any Multi-Drug Resistant Organisms: MRSA Date of last positivie culture/infection: 06/10/20 MDRO Source:: Blood Past Surgical History: Cardiac Valve Replacement, Orthopedic Surgery, Uterine Ablation Additional Past Surgical History / Comment(s): 08/26/17 colonoscopy with polypectomy/bx, pancreatic resection at [facility] 2009, bone marrow biopsies X2-last one 05/19/16,. dialysis chest port x 2 with removals, Left arm shunt placement for dialysis - December 2015 and a revision done with shunt. Left forearm Vein Revision - October 2019, liver biopsy.Lt arm fistula repair november 2020.heart valve repaced 2019 [facility]. chest chest wall port. left upper arm fistula 2020 Past Anesthesia/Blood Transfusion Reactions: No Reported Reaction Additional Past Anesthesia/Blood Transfusion Reaction / Comment(s): Pt has received blood transfusions without reaction. Past Psychological History: No Psychological Hx Reported Additional Psychological History / Comment(s): Pt resides at her mother in laws home at this time with spouse. They are her mother in laws caretakers. She is independent. She uses no assistive device. She drives. She receives antibiotic infusion while at dialysis. Smoking Status: Never smoker Past Alcohol Use History: None Reported Additional Past Alcohol Use History / Comment(s): Patient is a lifelong nonsmoker. Past Drug Use History: None Reported - Past Family History Brother(s) Family Medical History: No Reported History Mother Family Medical History: Cancer Additional Family Medical History / Comment(s): . Father Family Medical History: Hypertension Additional Family Medical History / Comment(s): alcoholism General Exam Limitations: no limitations General appearance: alert, in no apparent distress Head exam: Present: atraumatic, normocephalic, normal inspection Neck exam: Present: normal inspection, full ROM. Absent: tenderness, meningismus, lymphadenopathy Respiratory exam: Present: normal lung sounds bilaterally. Absent: respiratory distress, wheezes, rales, rhonchi, stridor Cardiovascular Exam: Present: regular rate, normal rhythm, normal heart sounds. Absent: systolic murmur, diastolic murmur, rubs, gallop, clicks GI/Abdominal exam: Present: soft, distended, normal bowel sounds. Absent: tenderness, guarding, rebound, rigid Extremities exam: Present: pedal edema, other (There is some draining of the lower extremities) Neurological exam: Present: alert, oriented X3 Skin exam: Present: warm, dry, intact, normal color. Absent: rash Course Vital Signs 01/22/21 08:02 Temperature 97.7 F Pulse Rate 64 Respiratory 18 Rate Blood Pressure 136/79 O2 Sat by Pulse 100 Oximetry EKG Findings - EKG Comments: EKG Findings:: EKG performed a: 20 normal sinus rhythm incomplete right bundle with a rate of 64 IL 200 QRS 102 QT/QTc 446/460 Medical Decision Making - Medical Decision Making 55-year-old presented for fluid overload with chronic renal failure on dialysis. Patient will be admitted for dialysis, evaluation by nephrology, cardiology secondary chest pain. - Lab Data Result diagrams: 01/22/21 08:22 01/22/21 08:22 Lab Results 01/22/21 01/22/21 01/22/21 Range/Units 08:22 08:22 08:22 WBC 3.9 (3.8-10.6) k/uL RBC 3.43 L (3.80-5.40) m/uL Hgb 10.2 L (11.4-16.0) gm/dL Hct 30.9 L (34.0-46.0) % MCV 90.3 D (80.0-100.0) fL MCH 29.8 (25.0-35.0) pg MCHC 33.0 (31.0-37.0) g/dL RDW 18.1 H (11.5-15.5) % Plt Count 76 L (150-450) k/uL MPV 9.0 Neutrophils % 80 % Lymphocytes % 6 % Monocytes % 8 % Eosinophils % 4 % Basophils % 1 % Neutrophils # 3.1 (1.3-7.7) k/uL Lymphocytes # 0.3 L (1.0-4.8) k/uL Monocytes # 0.3 (0-1.0) k/uL Eosinophils # 0.1 (0-0.7) k/uL Basophils # 0.0 (0-0.2) k/uL Manual Slide Review Performed Anisocytosis Slight PT 11.2 (9.0-12.0) sec INR 1.1 (<1.2) APTT 25.4 (22.0-30.0) sec Sodium 134 L (137-145) mmol/L Potassium 5.9 H (3.5-5.1) mmol/L Chloride 91 L (98-107) mmol/L Carbon Dioxide 28 (22-30) mmol/L Anion Gap 15 mmol/L BUN 77 H (7-17) mg/dL Creatinine 7.06 H* (0.52-1.04) mg/dL Est GFR (CKD-EPI)AfAm 7 (>60 ml/min/1.73 sqM) Est GFR (CKD-EPI)NonAf 6 (>60 ml/min/1.73 sqM) Glucose 81 (74-99) mg/dL Calcium 8.9 (8.4-10.2) mg/dL Magnesium 1.6 (1.6-2.3) mg/dL Total Bilirubin 0.8 (0.2-1.3) mg/dL AST 20 (14-36) U/L ALT 9 (4-34) U/L Alkaline Phosphatase 111 (38-126) U/L Troponin I (0.000-0.034) ng/mL NT-Pro-B Natriuret Pep pg/mL Total Protein 6.6 (6.3-8.2) g/dL Albumin 4.0 (3.5-5.0) g/dL 01/22/21 01/22/21 Range/Units 08:22 08:22 WBC (3.8-10.6) k/uL RBC (3.80-5.40) m/uL Hgb (11.4-16.0) gm/dL Hct (34.0-46.0) % MCV (80.0-100.0) fL MCH (25.0-35.0) pg MCHC (31.0-37.0) g/dL RDW (11.5-15.5) % Plt Count (150-450) k/uL MPV Neutrophils % % Lymphocytes % % Monocytes % % Eosinophils % % Basophils % % Neutrophils # (1.3-7.7) k/uL Lymphocytes # (1.0-4.8) k/uL Monocytes # (0-1.0) k/uL Eosinophils # (0-0.7) k/uL Basophils # (0-0.2) k/uL Manual Slide Review Anisocytosis PT (9.0-12.0) sec INR (<1.2) APTT (22.0-30.0) sec Sodium (137-145) mmol/L Potassium (3.5-5.1) mmol/L Chloride (98-107) mmol/L Carbon Dioxide (22-30) mmol/L Anion Gap mmol/L BUN (7-17) mg/dL Creatinine (0.52-1.04) mg/dL Est GFR (CKD-EPI)AfAm (>60 ml/min/1.73 sqM) Est GFR (CKD-EPI)NonAf (>60 ml/min/1.73 sqM) Glucose (74-99) mg/dL Calcium (8.4-10.2) mg/dL Magnesium (1.6-2.3) mg/dL Total Bilirubin (0.2-1.3) mg/dL AST (14-36) U/L ALT (4-34) U/L Alkaline Phosphatase (38-126) U/L Troponin I 0.015 (0.000-0.034) ng/mL NT-Pro-B Natriuret Pep 88422 pg/mL Total Protein (6.3-8.2) g/dL Albumin (3.5-5.0) g/dL Disposition Clinical Impression: ESRD (end stage renal disease) on dialysis, Abdominal pain, Acute pulmonary edema, Fluid overload, Chest pain, Hyperkalemia Disposition: ADMITTED IP TO THIS HOSP Condition: Fair Referrals: David Bragg MD [Primary Care Provider] - 1-2 days
[2021-01-22 08:50] LABS: Anisocytosis Slight; Basophils % (A) 1 %; Eosinophils # (A) 0.1 k/uL (0-0.7); Eosinophils % (A) 4 %; HCT 30.9 % (34.0-46.0); HGB 10.2 gm/dL (11.4-16.0); INR 1.1 (<1.2); Lymphocytes # (A) 0.3 k/uL (1.0-4.8); Lymphocytes % (A) 6 %; MCH 29.8 pg (25.0-35.0); Monocytes # (A) 0.3 k/uL (0-1.0); Monocytes % (A) 8 %; Neutrophils # (A) 3.1 k/uL (1.3-7.7); Neutrophils % (A) 80 %; Partial Thromboplastin Time 25.4 sec (22.0-30.0); Prothrombin Time 11.2 sec (9.0-12.0); RBC 3.43 m/uL (3.80-5.40); RDW 18.1 % (11.5-15.5); WBC 3.9 k/uL (3.8-10.6)
[2021-01-22 08:53] LABS: MCV 90.3 fL (80.0-100.0)
[2021-01-22 09:02] LABS: Calcium 8.9 mg/dL (8.4-10.2); Magnesium 1.6 mg/dL (1.6-2.3); Potassium 5.9 mmol/L (3.5-5.1); Total Bilirubin 0.8 mg/dL (0.2-1.3); Total Protein 6.6 g/dL (6.3-8.2)
[2021-01-22 09:16] LABS: Platelet Count 76 k/uL (150-450)
--- NOTE | 2021-01-22 09:24 | XR ---
EXAMINATION TYPE: XR chest 2V DATE OF EXAM: 01/22/2021 COMPARISON: 08/13/2020 HISTORY: 55-year-old female shortness of breath, difficulty breathing TECHNIQUE: AP and lateral views FINDINGS: Right-sided double lumen hemodialysis catheter tips in the right atrium. Prosthetic cardiac valve. Me edgardo sternotomy wires. Vascular stent in the left axilla. Heart borderline enlarged. Mild interstitia l prominence. No luis enrique consolidation or pleural effusion. Differential increased density over the lef t side of the chest due to rightward patient rotation. IMPRESSION: There may be mild pulmonary vascular congestion. No focal infiltrate or luis enrique pulmonary edema.
[2021-01-22] MEDS ORDERED: NALOXONE 0.4 MG/ML 1 ML VIAL IV PRN (09:27)
[2021-01-22] MEDS ORDERED: DARBEPOETIN ALFA 40 MCG/0.4 ML SYRINGE SQ SCH (10:00)
--- NOTE | 2021-01-22 10:27 | P.NPCON ---
History of Present Illness - Reason for Consult end stage renal disease - History of Present Illness Reason for consultation: End-stage renal disease History of present illness: Patient is a 55-year-old female seen in renal consultation for end-stage renal disease. Patient was seen and evaluated in the emergency room. Patient went to dialysis unit this morning and she was 9 kg over her dry weight and was also complaining of chest discomfort and was subsequently sent to the ER. Patient complains of upper abdominal discomfort. She denies shortness of breath. Does admit to generalized edema. No vomiting or diarrhea. Blood pressure stable. No fever or chills. No cough. Chest x-ray suggestive of mild vascular congestion. She currently is a permacath for her dialysis catheter. She has a maturing AV fistula. She also has a history of diastolic CHF with ascites. She does have severe pulmonary hypertension. Her last paracentesis was on 12/03/2020 with 5.1 L drained. Vital signs are stable. General: The patient appeared well nourished and normally developed. HEENT: Head exam is unremarkable. LUNGS: Breath sounds decreased. HEART: Rate and Rhythm are regular. ABDOMEN: Soft, distention noted. EXTREMITITES: 2+ edema. Past Medical History Past Medical History: Blood Disorder, Heart Failure, Diabetes Mellitus, Dialysis, Hyperlipidemia, Hypertension, Liver Disease, Pneumonia, Renal Disease Additional Past Medical History / Comment(s): Pt recently admitted to [facility] on 08/02/20 with fluid overload/swelling. Other hx: MRSA infection in blood with IV ABX while at dialysis until 09/06/20, bilateral cataracts, recently diagnosed with bilateral retinal hemorrhages, hypertriglyceridemia-induced acute pancreatitis, THEN necrotizing pancreatitis. hemodialysis for acute kidney injury 2 months in 2009 after pancreatic OR, 11/2015 diagnosed w/ chronic kidney disease-hemodialysis /-last hemodialysis 06/02/19, IDDM type II, past DKA, UTI, chronic anemia, frequent body cramping, occasional low back pain, carter's palsy x2, past L leg fx, possible liver disease-recent liver bx-results unknown per pt (2009). History of Any Multi-Drug Resistant Organisms: MRSA Date of last positivie culture/infection: 06/10/20 MDRO Source:: Blood Past Surgical History: Cardiac Valve Replacement, Orthopedic Surgery, Uterine Ablation Additional Past Surgical History / Comment(s): 08/26/17 colonoscopy with polypectomy/bx, pancreatic resection at [facility] 2009, bone marrow biopsies X2-last one 05/19/16,. dialysis chest port x 2 with removals, Left arm shunt placement for dialysis - December 2015 and a revision done with shunt. Left forearm Vein Revision - October 2019, liver biopsy.Lt arm fistula repair november 2020.heart valve repaced 2019 at [facility] chest chest wall port. left upper arm fistula 2020 Past Anesthesia/Blood Transfusion Reactions: No Reported Reaction Additional Past Anesthesia/Blood Transfusion Reaction / Comment(s): Pt has received blood transfusions without reaction. Past Psychological History: No Psychological Hx Reported Additional Psychological History / Comment(s): Pt resides at her mother in laws home at this time with spouse. They are her mother in laws caretakers. She is independent. She uses no assistive device. She drives. She receives antibiotic infusion while at dialysis. Smoking Status: Never smoker Past Alcohol Use History: None Reported Additional Past Alcohol Use History / Comment(s): Patient is a lifelong nonsmoker. Past Drug Use History: None Reported - Past Family History Brother(s) Family Medical History: No Reported History Mother Family Medical History: Cancer Additional Family Medical History / Comment(s): . Father Family Medical History: Hypertension Additional Family Medical History / Comment(s): alcoholism Medications and Allergies Home Medications Medication Instructions Recorded Confirmed Type cloNIDine HCL [Catapres] 0.3 mg PO TID@0530,1300,1900 12/16/16 01/22/21 History INSULIN LISPRO (humaLOG) [humaLOG] 10 unit SQ AC-TID 07/12/18 01/22/21 History hydrALAZINE HCL [Apresoline] 100 mg PO QID 12/14/18 01/22/21 History HYDROcodone/APAP 7.5-325MG [[place] 1 tab PO Q8H 11/08/19 01/22/21 History 7.5-325] Montelukast [Singulair] 10 mg PO HS@1900 11/08/19 01/22/21 History Insulin Glargine,Hum.rec.anlog 45 unit SQ HS 12/02/19 01/22/21 History [Dionneaglely Kat U-100] Albuterol Sulfate [Proair Hfa] 2 puff INHALATION RT-Q6H PRN 01/28/20 01/22/21 History Sildenafil [Revatio] 20 mg PO TID@0530,1300,1900 04/20/20 01/22/21 History traMADol HCL [Ultram] 50 mg PO Q12H PRN 05/13/20 01/22/21 History Ascorbic Acid [Vitamin C] 500 mg PO DAILY@0530 07/09/20 01/22/21 History Metoprolol Tartrate [Lopressor] 50 mg PO TID 07/09/20 01/22/21 History Gabapentin [Neurontin] 100 mg PO TID 08/02/20 01/22/21 History Omeprazole 20 mg PO BID 08/02/20 01/22/21 History Benzonatate [Tessalon Perles] 100 mg PO TID PRN 08/13/20 01/22/21 History diazePAM [Valium] 5 mg PO BID 08/13/20 01/22/21 History Sodium Polystyrene Sulfonate 20 gm PO SUMOWEFR 09/06/20 01/22/21 History [Kayexalate] Fexofenadine HCl [Candice Allergy] 180 mg PO DAILY 12/01/20 01/22/21 History Sevelamer [Renvela] 2,400 mg PO AC-TID 12/01/20 01/22/21 History Sevelamer [Renvela] 800 mg PO DAILY PRN 12/01/20 01/22/21 History Atorvastatin [Lipitor] 40 mg PO HS@1900 90 Days #90 tab 12/07/20 01/22/21 Rx Calcium Carbonate [Tums] 500 mg PO TID PRN chew 12/07/20 01/22/21 Rx Darbepoetin Drew [Aranesp] 40 mcg SQ Q7D syringe 12/07/20 01/22/21 Rx rOPINIRole HCL [Requip] 1 mg PO TID tab 12/07/20 01/22/21 Rx Cephalexin [Keflex] 500 mg PO BID 01/22/21 01/22/21 History Furosemide [Lasix] 20 mg PO DAILY 01/22/21 01/22/21 History Furosemide [Lasix] 40 mg PO DAILY@1400 01/22/21 01/22/21 History INSULIN LISPRO (humaLOG) [humaLOG] See Protocol SQ AC-TID 01/22/21 01/22/21 History Ketorolac 0.5% Ophth Soln [Acular 1 drop LEFT EYE QID 01/22/21 01/22/21 History 0.5%] prednisoLONE ACETATE 1% OPHTH 1 drop LEFT EYE QID 01/22/21 01/22/21 History [Pred Forte 1%] Allergies Allergy/AdvReac Type Severity Reaction Status Date / Time Anesthetics - Amide Type - Allergy Unknown Verified 01/22/21 09:49 Select A Anesthetics - Andree Type- Allergy Unknown Verified 01/22/21 09:49 Parabens hydromorphone [From Dilaudid] Allergy Swelling Verified 01/22/21 09:49 ciprofloxacin [From Cipro] AdvReac AFFECTED Verified 01/22/21 09:49 EYESIGHT ciprofloxacin HCl AdvReac AFFECTED Verified 01/22/21 09:49 [From Cipro] EYESIGHT Iodinated Contrast Media AdvReac RENAL Verified 01/22/21 09:49 FAILURE Physical Exam Vitals: Vital Signs Temp Pulse Resp BP Pulse Ox 01/22/21 08:02 97.7 F 64 18 136/79 100 Intake and Output 01/21/21 01/22/21 01/22/21 22:59 06:59 14:59 Other: Weight 85 kg Results - Lab Results Most recent lab results Calcium 8.9 mg/dL (8.4-10.2) 01/22/21 08:22 Magnesium 1.6 mg/dL (1.6-2.3) 01/22/21 08:22 01/22/21 08:22 01/22/21 08:22 Assessment and Plan Plan: Assessment: 1. End-stage renal disease maintained on hemodialysis on Thursday schedule via a permacath. She has a maturing AV fistula. 2. Acute on chronic diastolic CHF with severe tricuspid regurgitation and pulmonary hypertension. 3. Volume overload. 4. Chronic hyperkalemia secondary to chronic kidney disease. Maintained on Kayexalate outpatient. 5. History of endocarditis. 6. Chronic kidney disease mineral bone disease maintained on Renvela. 7. Anemia of chronic kidney disease maintained on Aranesp. Plan: Hemodialysis today with goal 3 L at the filtration. Plan for another treatment tomorrow. Renal diet. Check abdominal ultrasound to check for ascites. Thank you for the consultation. I will continue to follow the patient with you during her hospital stay.
[2021-01-22] MEDS: HYDROcodone/APAP 7.5-325MG 1 EACH TAB PO SCH ×2 (12:20→20:23)
[2021-01-22] MEDS: hydrALAZINE HCL 50 MG TAB PO SCH ×3 (12:23→20:23)
[2021-01-22] MEDS: INSULIN ASPART (NovoLOG) 100 UNIT/ML VIAL SQ SCH ×2 (12:24→17:57)
[2021-01-22] MEDS: cloNIDine HCL 0.1 MG TAB PO SCH ×2 (12:25→20:23)
[2021-01-22 12:30] LABS: Glucose,Whole Blood 75 mg/dL (75-99)
--- NOTE | 2021-01-22 13:58 | P.CRDCN ---
History of Present Illness History of present illness: HISTORY OF PRESENTING ILLNESS This is a pleasant 55-year-old female past medical history significant for end-stage renal disease on hemodialysis, infective endocarditis status post mitral valve repair in march 2020, hypertension, dyslipidemia, diabetes mellitus, history of liver disease, ascities, pulmonary hypertension, chronic pancreatitis s/p partial pancratectomy and chronic heart failure. She follows in the office with Dr. Tesfaye. We have been asked to see in consultation for chest pain. Patient states she has been having left-sided pain around her diaphragm and upper abdomen. It is non-radiating, nonexertional. She states her pain started on Thursday. She does have associated nausea or vomiting. She also endorses increased weight gain and shortness of breath. She was scheduled to dialysis today but due to her symptoms she decided to present to the emergency department. She does endorse her abdomen feeling more swollen. She endorses she is compliant with her diet, low salt and education. She usually gets 4 L removed during dialysis, which she states has not recently changed. She denies fever, chills, lightheadedness, dizziness, palpitations. She was admitted in November 2020 with ascities underwent paracentesis on 12/03/2020 with 5.1 L drained. DIAGNOSTICS Sinus rhythm, heart rate 64, nonspecific STT wave changes. Incomplete right bundle branch block. She underwent cardiac catheterization in 2018 revealing normal coronary arteries. TK performed 06/2020 revealed mildly impaired LV function with EF 40-45%, normally functioning bioprosthetic mitral valve and possible vegetation of the lateral wall of the LV. According to the patient she was subsequently transferred at that time to [facility] for closer evaluation and was told this was scar tissue and not recurrent endocarditis. Laboratory data reviewed, WBC 3.9, Hgb 10.2, platelets 76, sodium 134, potassium 5.9, BUN 37, serum creatinine 7.0, magnesium 1.6, troponin negative 1, proBNP 20,100, COVID-19 PCR negative, liver enzymes within normal limits INR 1.1 Current daily cardiac medications include atorvastatin 40 mg at bedtime, Lasix 40 mg daily, Lopressor 50 mg 3 times a day, sildenafil 20 mg 3 times a day, clonidine 0.3 mg 3 times a day and hydralazine 100 mg 4 times a day. REVIEW OF SYSTEMS At the time of my exam: CONSTITUTIONAL: Denies fever or chills. CARDIOVASCULAR: Complains of shortness of breath Denies orthopnea, PND, palpitations. RESPIRATORY: Denies cough. GASTROINTESTINAL: Complains of abdominal fullness. left sided upper abdominal pain, Denies diarrhea, constipation, nausea or vomiting. MUSCULOSKELETAL: Denies myalgias. NEUROLOGIC: Denies numbness, tingling, headacbe or weakness. ENDOCRINE: Denies fatigue, weight change, polydipsia or polyurina. GENITOURINARY: Denies burning, hematuria or urgency with micturation. HEMATOLOGIC: Denies history of anemia or bleeding. PHYSICAL EXAMINATION Blood pressure 152/83 heart rate 87 afebrile and maintaining oxygen saturation on room air. CONSTITUTIONAL: No apparent distress. HEENT: Head is normocephalic. Pupils are equal, round. Sclerae anicteric. Mucous membranes of the mouth are moist. No JVD CHEST EXAMINATION: Lungs are clear to auscultation. No chest wall tenderness is noted on palpation or with deep breathing. HEART EXAMINATION: Regular rate and rhythm. S1, S2 heard. Systolic ejection murmur apex. no gallops or rub. ABDOMEN: Soft, nontender. Positive bowel sounds. Distended, tympanic with ascites. EXTREMITIES: 2+ peripheral pulses, trace bilateral lower extremity pitting edema and no calf tenderness. NEUROLOGIC EXAMINATION: Patient is awake, alert and oriented x3. ASSESSMENT Shortness of breath Left sided abdominal/chest pain- atypical, troponin negative x 1, no evidence of ischemia on EKG. Fluid overload Chronic diastolic heart failure Valvular heart disease s/p mitral valve repair in the setting of endocarditis Chronic liver disease Hypertension End stage renal disease on HD Anemia Diabetes mellitus type 2 Dyslipidemia PLAN We will obtain 2D echocardiogram Continue home cardiac medications Nephrology following, plan for hemodialysis today Further recommendations based on clinical course Past Medical History Past Medical History: Blood Disorder, Heart Failure, Diabetes Mellitus, Dialysis, Hyperlipidemia, Hypertension, Liver Disease, Pneumonia, Renal Disease Additional Past Medical History / Comment(s): Pt recently admitted to [facility] on 08/02/20 with fluid overload/swelling. Other hx: MRSA infection in blood with IV ABX while at dialysis until 09/06/20, bilateral cataracts, recently diagnosed with bilateral retinal hemorrhages, hypertriglyceridemia-induced acute pancreatitis, THEN necrotizing pancreatitis. hemodialysis for acute kidney injury 2 months in 2009 after pancreatic OR, 11/2015 diagnosed w/ chronic kidney disease-hemodialysis -last hemodialysis 06/02/19, IDDM type II, past D KA, UTI, chronic anemia, frequent body cramping, occasional low back pain, carter's palsy x2, past L leg fx, possible liver disease-recent liver bx-results unknown per pt (2009). History of Any Multi-Drug Resistant Organisms: MRSA Date of last positivie culture/infection: 06/10/20 MDRO Source:: Blood Past Surgical History: Cardiac Valve Replacement, Orthopedic Surgery, Uterine Ablation Additional Past Surgical History / Comment(s): 08/26/17 colonoscopy with polypectomy/bx, pancreatic resection at [facility] 2009, bone marrow biopsies X2-last one 05/19/16,. dialysis chest port x 2 with removals, Left arm shunt placement for dialysis - December 2015 and a revision done with shunt. Left forearm Vein Revision - October 2019, liver biopsy.Lt arm fistula repair november 2020.[facility] chest chest wall port. left upper arm fistula 2020 Past Anesthesia/Blood Transfusion Reactions: No Reported Reaction Additional Past Anesthesia/Blood Transfusion Reaction / Comment(s): Pt has received blood transfusions without reaction. Past Psychological History: No Psychological Hx Reported Additional Psychological History / Comment(s): Pt resides at her mother in laws home at this time with spouse. They are her mother in laws caretakers. She is independent. She uses no assistive device. She drives. She receives antibiotic infusion while at dialysis. Smoking Status: Never smoker Past Alcohol Use History: None Reported Additional Past Alcohol Use History / Comment(s): Patient is a lifelong nonsmoker. Past Drug Use History: None Reported - Past Family History Brother(s) Family Medical History: No Reported History Mother Family Medical History: Cancer Additional Family Medical History / Comment(s): . Father Family Medical History: Hypertension Additional Family Medical History / Comment(s): alcoholism Medications and Allergies Home Medications Medication Instructions Recorded Confirmed Type cloNIDine HCL [Catapres] 0.3 mg PO TID@0530,1300,1900 12/16/16 01/22/21 History INSULIN LISPRO (humaLOG) [humaLOG] 10 unit SQ AC-TID 07/12/18 01/22/21 History hydrALAZINE HCL [Apresoline] 100 mg PO QID 12/14/18 01/22/21 History HYDROcodone/APAP 7.5-325MG [[place] 1 tab PO Q8H 11/08/19 01/22/21 History 7.5-325] Montelukast [Singulair] 10 mg PO HS@1900 11/08/19 01/22/21 History Insulin Glargine,Hum.rec.anlog 45 unit SQ HS 12/02/19 01/22/21 History [Basaglar Kwikpen U-100] Albuterol Sulfate [Proair Hfa] 2 puff INHALATION RT-Q6H PRN 01/28/20 01/22/21 History Sildenafil [Revatio] 20 mg PO TID@0530,1300,1900 04/20/20 01/22/21 History traMADol HCL [Ultram] 50 mg PO Q12H PRN 05/13/20 01/22/21 History Ascorbic Acid [Vitamin C] 500 mg PO DAILY@0530 07/09/20 01/22/21 History Metoprolol Tartrate [Lopressor] 50 mg PO TID 07/09/20 01/22/21 History Gabapentin [Neurontin] 100 mg PO TID 08/02/20 01/22/21 History Omeprazole 20 mg PO BID 08/02/20 01/22/21 History Benzonatate [Tessalon Perles] 100 mg PO TID PRN 08/13/20 01/22/21 History diazePAM [Valium] 5 mg PO BID 08/13/20 01/22/21 History Sodium Polystyrene Sulfonate 20 gm PO SUMOWEFR 09/06/20 01/22/21 History [Kayexalate] Fexofenadine HCl [Candice Allergy] 180 mg PO DAILY 12/01/20 01/22/21 History Sevelamer [Renvela] 2,400 mg PO AC-TID 12/01/20 01/22/21 History Sevelamer [Renvela] 800 mg PO DAILY PRN 12/01/20 01/22/21 History Atorvastatin [Lipitor] 40 mg PO HS@1900 90 Days #90 tab 12/07/20 01/22/21 Rx Calcium Carbonate [Tums] 500 mg PO TID PRN chew 12/07/20 01/22/21 Rx Darbepoetin Drew [Aranesp] 40 mcg SQ Q7D syringe 12/07/20 01/22/21 Rx rOPINIRole HCL [Requip] 1 mg PO TID tab 12/07/20 01/22/21 Rx Cephalexin [Keflex] 500 mg PO BID 01/22/21 01/22/21 History Furosemide [Lasix] 20 mg PO DAILY 01/22/21 01/22/21 History Furosemide [Lasix] 40 mg PO DAILY@1400 01/22/21 01/22/21 History INSULIN LISPRO (humaLOG) [humaLOG] See Protocol SQ AC-TID 01/22/21 01/22/21 History Ketorolac 0.5% Ophth Soln [Acular 1 drop LEFT EYE QID 01/22/21 01/22/21 History 0.5%] prednisoLONE ACETATE 1% OPHTH 1 drop LEFT EYE QID 01/22/21 01/22/21 History [Pred Forte 1%] Allergies Allergy/AdvReac Type Severity Reaction Status Date / Time Anesthetics - Amide Type - Allergy Unknown Verified 01/22/21 09:49 Select A Anesthetics - Andree Type- Allergy Unknown Verified 01/22/21 09:49 Parabens hydromorphone [From Dilaudid] Allergy Swelling Verified 01/22/21 09:49 ciprofloxacin [From Cipro] AdvReac AFFECTED Verified 01/22/21 09:49 EYESIGHT ciprofloxacin HCl AdvReac AFFECTED Verified 01/22/21 09:49 [From Cipro] EYESIGHT Iodinated Contrast Media AdvReac RENAL Verified 01/22/21 09:49 FAILURE Physical Exam Vitals: Vital Signs Temp Pulse Resp BP Pulse Ox 01/22/21 08:02 97.7 F 64 18 136/79 100 Intake and Output 01/21/21 01/22/21 01/22/21 22:59 06:59 14:59 Other: Weight 85 kg Results 01/22/21 08:22 01/22/21 08:22 Cardiac Enzymes 01/22/21 01/22/21 Range/Units 08:22 08:22 AST 20 (14-36) U/L Troponin I 0.015 (0.000-0.034) ng/mL Coagulation 01/22/21 Range/Units 08:22 PT 11.2 (9.0-12.0) sec APTT 25.4 (22.0-30.0) sec CBC 01/22/21 Range/Units 08:22 WBC 3.9 (3.8-10.6) k/uL RBC 3.43 L (3.80-5.40) m/uL Hgb 10.2 L (11.4-16.0) gm/dL Hct 30.9 L (34.0-46.0) % Plt Count 76 L (150-450) k/uL Comprehensive Metabolic Panel 01/22/21 Range/Units 08:22 Sodium 134 L (137-145) mmol/L Potassium 5.9 H (3.5-5.1) mmol/L Chloride 91 L (98-107) mmol/L Carbon Dioxide 28 (22-30) mmol/L BUN 77 H (7-17) mg/dL Creatinine 7.06 H* (0.52-1.04) mg/dL Glucose 81 (74-99) mg/dL Calcium 8.9 (8.4-10.2) mg/dL AST 20 (14-36) U/L ALT 9 (4-34) U/L Alkaline Phosphatase 111 (38-126) U/L Total Protein 6.6 (6.3-8.2) g/dL Albumin 4.0 (3.5-5.0) g/dL Current Medications Generic Name Dose Route Start Last Admin Trade Name Freq PRN Reason Stop Dose Admin Hydrocodone Bitart/Acetaminophen 1 each 01/22/21 12:00 Hydrocodone/Apap 7.5-325mg 1 Each Tab PO Q8H [facility] Ascorbic Acid 500 mg 01/23/21 05:30 Ascorbic Acid 500 Mg Tab PO DAILY@0530 [facility] Atorvastatin Calcium 40 mg 01/22/21 19:00 Atorvastatin 40 Mg Tab PO HS@1900 [facility] Clonidine 0.3 mg 01/22/21 13:00 Clonidine Hcl 0.1 Mg Tab PO TID@0530,1300,1900 [facility] Darbepoetin Drew 40 mcg 01/22/21 10:00 01/22/21 09:56 Darbepoetin Drew 40 Mcg/0.4 Ml Syringe SQ 40 mcg Q7D ANNI Administration Diazepam 5 mg 01/22/21 21:00 Diazepam 5 Mg Tab PO BID [facility] Furosemide 40 mg 01/23/21 09:00 Furosemide 40 Mg Tab PO DAILY [facility] Gabapentin 100 mg 01/22/21 16:00 Gabapentin 100 Mg Cap PO TID ANNI Hydralazine HCl 100 mg 01/22/21 12:00 Hydralazine Hcl 50 Mg Tab PO 0530,1200,1600,1900 [facility]NI Insulin Aspart 10 unit 01/22/21 12:30 Insulin Aspart (Novolog) 100 Unit/Ml Vial SQ AC-TID ANNI Metoprolol Tartrate 50 mg 01/22/21 16:00 Metoprolol Tartrate 50 Mg Tab PO TID ANNI Montelukast Sodium 10 mg 01/22/21 19:00 Montelukast 10 Mg Tab PO HS@1900 [facility] Naloxone HCl 0.2 mg 01/22/21 09:27 Naloxone 0.4 Mg/Ml 1 Ml Vial IV Q2M PRN Opioid Reversal Pantoprazole Sodium 40 mg 01/22/21 21:00 Pantoprazole 40 Mg Tablet PO BID ANNI Ropinirole HCl 1 mg 01/22/21 16:00 Ropinirole Hcl 1 Mg Tab PO TID ANNI Sevelamer Carbonate 800 mg 01/23/21 09:00 Sevelamer 800 Mg Tab PO DAILY PRN SNACKS Sevelamer Carbonate 2,400 mg 01/22/21 12:30 Sevelamer 800 Mg Tab PO AC-TID ANNI Sildenafil Citrate 20 mg 01/22/21 13:00 Sildenafil 20 Mg Tab PO TID@0530,1300,1900 [facility] Sodium Polystyrene Sulfonate 20 gm 01/23/21 09:00 Sodium Polystyrene Sulfonate 15 Gm/60 Ml Bottle PO SUMOWEFR ANNI Intake and Output 01/21/21 01/22/21 01/22/21 22:59 06:59 14:59 Other: Weight 85 kg Patient Weight 01/23/21 06:59 Weight 85 kg 01/22/21 08:22 01/22/21 08:22
[2021-01-22] MEDS: SEVELAMER 800 MG TAB PO SCH ×2 (14:58→17:57)
[2021-01-22] MEDS: SILDENAFIL 20 MG TAB PO SCH ×2 (15:00→20:25)
--- NOTE | 2021-01-22 15:24 | US ---
EXAMINATION TYPE: US abdomen limited DATE OF EXAM: 01/22/2021 COMPARISON: None CLINICAL HISTORY: 55 year-old female new-onset ascites, Ascites check. Technique: Scanning of the 4 abdominal quadrants for assessment of ascites fluid. FINDINGS: Moderate ascites is visualized within all four quadrants of the abdomen. IMPRESSION: Moderate abdominal ascites.
--- NOTE | 2021-01-22 16:48 | HP ---
HISTORY AND PHYSICAL This 55-year-old white female came to the hospital for cardiology consult, for end- stage renal disease, history of infective endocarditis with fluid overload. She has severe pain and swelling in her upper abdomen, associated pressure, shortness of breath, came to the emergency room for cardiac consult and fluid overload. Labs are reviewed. Medications reviewed. Fourteen-point review of systems as mentioned above; otherwise negative. PHYSICAL EXAMINATION: Blood pressure 150s over 80s, heart rate 87, O2 on room air is good. HEAD: Normocephalic, atraumatic. LUNGS: Clear. CARDIOVASCULAR: S1, S2. Two plus edema. ASSESSMENT: 1. Chest pain, atypical. 2. Fluid overload. 3. Chronic diastolic heart failure. 4. Valvular heart disease. 5. Chronic liver disease. 6. Hypertension. 7. End-stage renal disease. 8. Anemia. 9. Diabetes mellitus, type 2. Echo has been ordered. Hemodialysis has been ordered. Electrolytes will be monitored. Prognosis guarded. MMODL / IJN: [id number] /
[2021-01-22] MEDS: METOPROLOL TARTRATE 50 MG TAB PO SCH ×2 (16:52→20:24)
[2021-01-22] MEDS: GABAPENTIN 100 MG CAP PO SCH ×2 (16:53→20:23)
[2021-01-22 16:56] LABS: Glucose,Whole Blood 156 mg/dL (75-99)
[2021-01-22] MEDS: BENZOCAINE/MENTHOL LOZENG 1 EACH LOZENGE MUCOUS MEM PRN (18:59)
[2021-01-22] MEDS: BENZONATATE 100 MG CAP PO PRN (18:59)
[2021-01-22 19:53] LABS: Glucose,Whole Blood 284 mg/dL (75-99)
[2021-01-22] MEDS: MONTELUKAST 10 MG TAB PO SCH (20:23)
[2021-01-22] MEDS: ATORVASTATIN 40 MG TAB PO SCH (20:24)
[2021-01-22] MEDS: PANTOPRAZOLE 40 MG TABLET PO SCH (20:24)
[2021-01-22] MEDS: diazePAM 5 MG TAB PO SCH (20:24)
[2021-01-23] MEDS ORDERED: BENZONATATE 100 MG CAP PO ONE (01:25)
[2021-01-23] MEDS ORDERED: BENZOCAINE/MENTHOL LOZENG 1 EACH LOZENGE MUCOUS MEM ONE (01:25)
[2021-01-23] MEDS: ASCORBIC ACID 500 MG TAB PO SCH (04:09)
[2021-01-23] MEDS: SILDENAFIL 20 MG TAB PO SCH ×3 (04:09→19:32)
[2021-01-23] MEDS: cloNIDine HCL 0.1 MG TAB PO SCH ×3 (04:09→20:57)
[2021-01-23] MEDS: HYDROcodone/APAP 7.5-325MG 1 EACH TAB PO SCH ×3 (04:09→19:30)
[2021-01-23] MEDS: hydrALAZINE HCL 50 MG TAB PO SCH ×4 (04:09→20:58)
[2021-01-23 07:07] LABS: Glucose,Whole Blood 208 mg/dL (75-99)
[2021-01-23 08:06] LABS: Calcium 9.4 mg/dL (8.4-10.2); Magnesium 1.7 mg/dL (1.6-2.3)
[2021-01-23 08:12] LABS: Anisocytosis Slight; Basophils % (A) 1 %; Eosinophils # (A) 0.1 k/uL (0-0.7); Eosinophils % (A) 2 %; HCT 31.4 % (34.0-46.0); HGB 10.3 gm/dL (11.4-16.0); Hypochromasia Slight; Lymphocytes # (A) 0.3 k/uL (1.0-4.8); Lymphocytes % (A) 10 %; MCH 30.6 pg (25.0-35.0); MCHC 32.8 g/dL (31.0-37.0); MCV 93.2 fL (80.0-100.0); Monocytes # (A) 0.3 k/uL (0-1.0); Monocytes % (A) 10 %; Neutrophils # (A) 2.4 k/uL (1.3-7.7); Neutrophils % (A) 74 %; RBC 3.37 m/uL (3.80-5.40); RDW 17.6 % (11.5-15.5); WBC 3.2 k/uL (3.8-10.6)
[2021-01-23] MEDS: SEVELAMER 800 MG TAB PO SCH ×3 (08:15→18:44)
[2021-01-23] MEDS: PANTOPRAZOLE 40 MG TABLET PO SCH ×2 (08:15→19:30)
[2021-01-23] MEDS: GABAPENTIN 100 MG CAP PO SCH ×3 (08:15→20:58)
[2021-01-23 08:16] LABS: Platelet Count 83 k/uL (150-450)
[2021-01-23] MEDS: INSULIN ASPART (NovoLOG) 100 UNIT/ML VIAL SQ SCH ×3 (08:16→16:41)
[2021-01-23] MEDS: METOPROLOL TARTRATE 50 MG TAB PO SCH ×3 (08:16→20:57)
[2021-01-23] MEDS: diazePAM 5 MG TAB PO SCH ×2 (08:16→20:57)
[2021-01-23 08:45] LABS: Potassium 6.4 mmol/L (3.5-5.1)
[2021-01-23] MEDS ORDERED: SEVELAMER 800 MG TAB PO PRN (09:00)
[2021-01-23] MEDS ORDERED: SODIUM POLYSTYRENE SULFONATE 15 GM/60 ML BOTTLE PO SCH (09:00)
[2021-01-23] MEDS ORDERED: FUROSEMIDE 40 MG TAB PO SCH (09:00)
[2021-01-23] MEDS ORDERED: BUMETANIDE 0.25 MG/ML 10 ML VIAL IV SCH ×2 (09:45→21:00)
[2021-01-23] MEDS ORDERED: MIDODRINE 5 MG TAB PO PRN (11:46)
--- NOTE | 2021-01-23 11:46 | P.PN ---
Subjective This is a pleasant 55-year-old female past medical history significant for end-stage renal disease on hemodialysis, infective endocarditis status post mitral valve repair in march 2020, hypertension, dyslipidemia, diabetes mellitus, history of liver disease, ascities, pulmonary hypertension, chronic pancreatitis s/p partial pancratectomy and chronic heart failure. She follows in the office with Dr. Tesfaye. We have been asked to see in consultation for chest pain. Patient presents to the hospital on 01/22/21. Patient states she has been having left-sided pain around her diaphragm and upper abdomen. It is non- radiating, nonexertional. She states her pain started on Thursday. She does have associated nausea or vomiting. She also endorses increased weight gain and shortness of breath. She was scheduled to dialysis today but due to her symptoms she decided to present to the emergency department. She does endorse her abdomen feeling more swollen. She endorses she is compliant with her diet, low salt and education. She usually gets 4 L removed during dialysis, which she states has not recently changed. She denies fever, chills, lightheadedness, dizziness, palpitations. She was admitted in November 2020 with ascities underwent paracentesis on 12/03/2020 with 5.1 L drained. DIAGNOSTICS She underwent cardiac catheterization in 2018 revealing normal coronary arteries. TK performed 06/2020 revealed mildly impaired LV function with EF 40-45%, normally functioning bioprosthetic mitral valve and possible vegetation of the lateral wall of the LV. According to the patient she was subsequently transferred at that time to [facility] for closer evaluation and was told this was scar tissue and not recurrent endocarditis. 01/23/21: Patient seen and examined at bedside, she continues to feel shortness of breath. Blood pressure 134/72, heart rate 73, afebrile, maintaining oxygen saturation is on room air. Telemetry reviewed patient in sinus mechanism heart rate 7080s. Abdominal ultrasound revealed moderate ascites. Patient underwent hemodialysis yesterday, patient states that she only had 2 L removed due to hypotension. Laboratory data reviewed WBC 3.2, hemoglobin 10.3, platelets 83, sodium 135, potassium 6.4, BUN 53, serum creatinine 6.1, magnesium 1.7. She's currently maintained on Lasix when necessary 40 mg daily, atorvastatin 40 mg nightly, clonidine 0.3 mg 3 times a day, hydralazine 100 mg qid, metoprolol t itrate 50 mg 3 times a day. She was also given Kayexalate this morning. PHYSICAL EXAMINATION CONSTITUTIONAL: No apparent distress. HEENT: Head is normocephalic. +JVD CHEST EXAMINATION: Lungs crackles in the bases to auscultation. No chest wall tenderness is noted on palpation or with deep breathing. HEART EXAMINATION: Regular rate and rhythm. S1, S2 heard. Systolic ejection murmur apex. ABDOMEN: Soft, nontender. Positive bowel sounds. Distended, tympanic with ascites. EXTREMITIES: 2+ peripheral pulses, trace bilateral lower extremity pitting edema and no calf tenderness. NEUROLOGIC EXAMINATION: Patient is awake, alert and oriented x3. ASSESSMENT Shortness of breath Left sided abdominal/chest pain- atypical, troponin negative x 1, no evidence of ischemia on EKG. Ascites Acute on chronic diastolic heart failure Valvular heart disease s/p mitral valve repair in the setting of endocarditis Chronic liver disease Hypertension End stage renal disease on HD Anemia Pancytopenia Diabetes mellitus type 2 Dyslipidemia PLAN Start IV Bumex BID Echocardiogram read pending Nephrology following, appreciate recommendations Continue home cardiac medications - lopressor, statin, hydralazine I/Os, daily weights Monitor renal function and electrolytes Further recommendations based on clinical course Objective - Vital Signs Vital signs: Vital Signs Temp 98 F 01/23/21 08:10 Pulse 73 01/23/21 08:10 Resp 16 01/23/21 08:10 BP 154/72 01/23/21 08:10 Pulse Ox 98 01/23/21 08:10 Intake & Output 01/22/21 01/23/21 01/23/21 18:59 06:59 18:59 Intake Total 357 420 Output Total 3000 Balance -2643 420 Weight 85 kg 83.6 kg Intake: Oral 357 420 Output: Hemodialysis 3000 Other: # Voids 0 - Labs CBC & Chem 7: 01/23/21 07:40 01/23/21 07:40 Labs: Abnormal Lab Results - Last 24 Hours (Table) 01/22/21 01/22/21 01/23/21 Range/Units 16:47 19:51 07:03 WBC (3.8-10.6) k/uL RBC (3.80-5.40) m/uL Hgb (11.4-16.0) gm/dL Hct (34.0-46.0) % RDW (11.5-15.5) % Plt Count (150-450) k/uL Lymphocytes # (1.0-4.8) k/uL Sodium (137-145) mmol/L Potassium (3.5-5.1) mmol/L Carbon Dioxide (22-30) mmol/L BUN (7-17) mg/dL Creatinine (0.52-1.04) mg/dL Glucose (74-99) mg/dL POC Glucose (mg/dL) 156 H 284 H 208 H (75-99) mg/dL 01/23/21 01/23/21 Range/Units 07:40 07:40 WBC 3.2 L (3.8-10.6) k/uL RBC 3.37 L (3.80-5.40) m/uL Hgb 10.3 L (11.4-16.0) gm/dL Hct 31.4 L (34.0-46.0) % RDW 17.6 H (11.5-15.5) % Plt Count 83 L (150-450) k/uL Lymphocytes # 0.3 L (1.0-4.8) k/uL Sodium 135 L (137-145) mmol/L Potassium 6.4 H* (3.5-5.1) mmol/L Carbon Dioxide 19 L (22-30) mmol/L BUN 53 H (7-17) mg/dL Creatinine 6.19 H (0.52-1.04) mg/dL Glucose 279 H (74-99) mg/dL POC Glucose (mg/dL) (75-99) mg/dL
[2021-01-23] MEDS: BENZOCAINE/MENTHOL LOZENG 1 EACH LOZENGE MUCOUS MEM PRN ×2 (11:51→19:30)
[2021-01-23] MEDS: BENZONATATE 100 MG CAP PO PRN ×2 (11:51→19:30)
--- NOTE | 2021-01-23 11:51 | ECHOF ---
Referral Reason:LV function MEASUREMENTS -------- HEIGHT: 157.5 cm WEIGHT: 84.8 kg BP: 144/82 RVIDd: 3.7 cm (< 3.3) IVSd: 1.4 cm (0.6 - 1.1) LVIDd: 3.4 cm (3.9 - 5.3) LVPWd: 1.9 cm (0.6 - 1.1) IVSs: 1.7 cm LVIDs: 2.2 cm LVPWs: 2.2 cm LAESV Index (A-L): 38.20 ml/m MV E Armando: 1.96 m/s MV DecT: 359 ms MV A Armando: 1.16 m/s MV E/A Ratio: 1.69 RAP: 5.00 mmHg RVSP: 79.94 mmHg FINDINGS -------- Sinus rhythm. This was a technically adequate study. The left ventricular size is normal. There is moderate concentric left ventricular hypertrophy. O verall left ventricular systolic function is normal with, an EF between 55 - 60 %. The right ventricle is mildly enlarged. LA is moderately dilated 34-39 ml/m2 The right atrium was not well visualized. Interatrial and interventricular septum intact. There is mild aortic valve sclerosis. There is no evidence of aortic regurgitation. There is no e vidence of aortic stenosis. Mild mitral annular calcification present. There is trace mitral regurgitation. [id number] mitral stenosis , with a MVA of 2.1cm (by PHT) Cannot rule out vegetation. There is no stenosis of the bioprosthetic mitral valve. Severe tricuspid regurgitation present. There is severe pulmonary hypertension. The right ventric ular systolic pressure, as measured by Doppler, is 79.94mmHg. There is no pulmonic regurgitation present. The aortic root size is normal. IVC Not well visulized. There is no pericardial effusion. CONCLUSIONS -------- 1. The left ventricular size is normal. 2. There is moderate concentric left ventricular hypertrophy. 3. Overall left ventricular systolic function is normal with, an EF between 55 - 60 %. 4. The right ventricle is mildly enlarged. 5. LA is moderately dilated 34-39 ml/m2 6. Mild mitral annular calcification present. 7. There is trace mitral regurgitation. 8. , with a MVA of 2.1cm (by PHT) 9. There is no stenosis of the bioprosthetic mitral valve. 10. Severe tricuspid regurgitation present. 11. There is severe pulmonary hypertension. 12. The right ventricular systolic pressure, as measured by Doppler, is 79.94mmHg. [employer]BLE SETTER HELPER: Anne Hinton RDCS
[2021-01-23 12:09] LABS: Glucose,Whole Blood 190 mg/dL (75-99)
--- NOTE | 2021-01-23 13:24 | P.PN ---
Subjective Patient is seen in follow-up for end-stage renal disease. She is maintained on hemodialysis on Thursday schedule. Underwent dialysis yesterday with 2 L ultrafiltration. Potassium level high again this morning. No chest pain or shortness of breath. Still quite edematous. Vital signs are stable. General: The patient appeared well nourished and normally developed. HEENT: Head exam is unremarkable. LUNGS: Breath sounds decreased. HEART: Rate and Rhythm are regular. ABDOMEN: Soft, distention noted. EXTREMITITES: 1+ edema. Objective - Vital Signs Vital signs: Vital Signs Temp 98 F 01/23/21 08:10 Pulse 70 01/23/21 11:48 Resp 18 01/23/21 11:48 BP 167/79 01/23/21 11:48 Pulse Ox 98 01/23/21 11:48 Intake & Output 01/22/21 01/23/21 01/23/21 18:59 06:59 18:59 Intake Total 357 420 Output Total 3000 Balance -2643 420 Weight 85 kg 83.6 kg Intake: Oral 357 420 Output: Hemodialysis 3000 Other: # Voids 0 - Labs CBC & Chem 7: 01/23/21 07:40 01/23/21 07:40 Labs: Abnormal Lab Results - Last 24 Hours (Table) 01/22/21 01/22/21 01/23/21 Range/Units 16:47 19:51 07:03 WBC (3.8-10.6) k/uL RBC (3.80-5.40) m/uL Hgb (11.4-16.0) gm/dL Hct (34.0-46.0) % RDW (11.5-15.5) % Plt Count (150-450) k/uL Lymphocytes # (1.0-4.8) k/uL Sodium (137-145) mmol/L Potassium (3.5-5.1) mmol/L Carbon Dioxide (22-30) mmol/L BUN (7-17) mg/dL Creatinine (0.52-1.04) mg/dL Glucose (74-99) mg/dL POC Glucose (mg/dL) 156 H 284 H 208 H (75-99) mg/dL 01/23/21 01/23/21 01/23/21 Range/Units 07:40 07:40 12:08 WBC 3.2 L (3.8-10.6) k/uL RBC 3.37 L (3.80-5.40) m/uL Hgb 10.3 L (11.4-16.0) gm/dL Hct 31.4 L (34.0-46.0) % RDW 17.6 H (11.5-15.5) % Plt Count 83 L (150-450) k/uL Lymphocytes # 0.3 L (1.0-4.8) k/uL Sodium 135 L (137-145) mmol/L Potassium 6.4 H* (3.5-5.1) mmol/L Carbon Dioxide 19 L (22-30) mmol/L BUN 53 H (7-17) mg/dL Creatinine 6.19 H (0.52-1.04) mg/dL Glucose 279 H (74-99) mg/dL POC Glucose (mg/dL) 190 H (75-99) mg/dL Assessment and Plan Plan: Assessment: 1. End-stage renal disease maintained on hemodialysis on Thursday schedule via a permacath. She has a maturing AV fistula. 2. Acute on chronic diastolic CHF with severe tricuspid regurgitation and pulmonary hypertension. 3. Volume overload. 4. Chronic hyperkalemia secondary to chronic kidney disease. Maintained on Kayexalate outpatient. Expect improvement postdialysis. 5. History of endocarditis. 6. Chronic kidney disease mineral bone disease maintained on Renvela. 7. Anemia of chronic kidney disease maintained on Aranesp. Plan: Hemodialysis today with goal 3 L at the filtration. Plan for another treatment tomorrow. Renal diet. Ascites noted on abdominal ultrasound. Consult interventional radiology for paracentesis. I will give her 25 g of albumin prior to the paracentesis. Maintain IV Bumex - I will increase the dose.
--- NOTE | 2021-01-23 15:50 | PN ---
PROGRESS NOTE This patient was admitted with fluid overload, abdominal bloating, possibly some cirrhotic-type changes, maintaining hemodialysis Thursday, , Thursday. She is only getting 2 liters out with her dialysis. She has edematous abdomen and lower legs. Vital signs stable. Afebrile. Integument: She has an open wound to the right leg due to fluid overload. Blood pressure 160s over 70s, respiratory rate 16 to 18, pulse 70, temperature 98. Lungs clear. CARDIOVASCULAR: Irregularly irregular rhythm. GI is distended; obesity and possible fluid wave. Extremities have 2+ edema with an open wound on the right tibia. Potassium 6.4, sodium 135, hemoglobin 10.3, white count 3.2. ASSESSMENT: 1. End-stage renal disease. 2. Fluid overload. 3. Acute on chronic congestive heart failure. 4. Hyperkalemia. 5. History of endocarditis. 6. Chronic kidney disease. 7. Anemia, on Aranesp. Hemodialysis. Cardiology and pulmonary consults continue. Cardiology and renal doctor consults. She has ascites noted on her abdominal ultrasound. We are going to give her albumin 25 grams prior to the paracentesis and possibly set up outpatient paracenteses to be done. MMODL / IJN: [id number] /
[2021-01-23 16:41] LABS: Glucose,Whole Blood 77 mg/dL (75-99)
[2021-01-23] MEDS: BUMETANIDE 0.25 MG/ML 10 ML VIAL IV SCH ×2 (17:22→20:27)
[2021-01-23] MEDS: MORPHINE SULFATE 2 MG/ML SYRINGE IVP PRN ×2 (17:40→21:06)
[2021-01-23] MEDS ORDERED: PROCHLORPERAZINE INJ 10 MG/2 ML VIAL IVP PRN (18:17)
[2021-01-23] MEDS: ONDANSETRON 4 MG/2 ML VIAL IVP PRN (18:27)
[2021-01-23] MEDS: guaiFENesin-DM 100-10MG/5ML 10 ML CUP PO PRN (18:27)
[2021-01-23] MEDS: ATORVASTATIN 40 MG TAB PO SCH (19:31)
[2021-01-23 20:04] LABS: Glucose,Whole Blood 125 mg/dL (75-99)
[2021-01-23] MEDS: MONTELUKAST 10 MG TAB PO SCH (20:57)
[2021-01-24] MEDS: guaiFENesin-DM 100-10MG/5ML 10 ML CUP PO PRN (01:59)
[2021-01-24] MEDS: ASCORBIC ACID 500 MG TAB PO SCH (04:29)
[2021-01-24] MEDS: hydrALAZINE HCL 50 MG TAB PO SCH ×3 (04:29→16:50)
[2021-01-24] MEDS: cloNIDine HCL 0.1 MG TAB PO SCH ×3 (04:29→18:46)
[2021-01-24] MEDS: HYDROcodone/APAP 7.5-325MG 1 EACH TAB PO SCH ×3 (04:29→20:49)
[2021-01-24] MEDS: ONDANSETRON 4 MG/2 ML VIAL IVP PRN (04:30)
[2021-01-24] MEDS: SILDENAFIL 20 MG TAB PO SCH ×3 (04:33→18:57)
[2021-01-24] MEDS: SEVELAMER 800 MG TAB PO SCH ×3 (05:44→16:50)
[2021-01-24] MEDS: MORPHINE SULFATE 2 MG/ML SYRINGE IVP PRN ×2 (05:45→19:18)
[2021-01-24 06:33] LABS: Anisocytosis Slight; Basophils # (A) 0.1 k/uL (0-0.2); Basophils % (A) 1 %; Eosinophils # (A) 0.2 k/uL (0-0.7); Eosinophils % (A) 2 %; HCT 32.5 % (34.0-46.0); HGB 10.3 gm/dL (11.4-16.0); Hypochromasia Slight; Lymphocytes # (A) 0.4 k/uL (1.0-4.8); Lymphocytes % (A) 6 %; MCH 30.4 pg (25.0-35.0); MCHC 31.7 g/dL (31.0-37.0); MCV 95.9 fL (80.0-100.0); Mean Platelet Volume 8.5; Monocytes # (A) 0.7 k/uL (0-1.0); Monocytes % (A) 10 %; Neutrophils # (A) 5.5 k/uL (1.3-7.7); Neutrophils % (A) 79 %; RBC 3.39 m/uL (3.80-5.40)
[2021-01-24 06:42] LABS: Platelet Count 98 k/uL (150-450)
[2021-01-24 06:52] LABS: Glucose,Whole Blood 162 mg/dL (75-99)
[2021-01-24 06:53] LABS: Albumin 4.1 g/dL (3.5-5.0); Magnesium 1.7 mg/dL (1.6-2.3); Total Bilirubin 1.1 mg/dL (0.2-1.3); Total Protein 6.5 g/dL (6.3-8.2)
[2021-01-24] MEDS: INSULIN ASPART (NovoLOG) 100 UNIT/ML VIAL SQ SCH ×3 (06:56→16:59)
[2021-01-24 06:58] LABS: Potassium 6.6 mmol/L (3.5-5.1)
[2021-01-24] MEDS ORDERED: SODIUM POLYSTYRENE SULFONATE 15 GM/60 ML BOTTLE PO STA (07:13)
[2021-01-24] MEDS ORDERED: DEXTROSE 50% SYRINGE 50 ML IVP STA (07:13)
[2021-01-24] MEDS ORDERED: INSULIN REGULAR 100 UNIT/ML VIAL (IV) IV ONE (07:13)
[2021-01-24] MEDS ORDERED: CALCIUM GLUCONATE 1 GM in SODIUM CHLORIDE 0.9% 100 ML IVPB ONE (07:13)
[2021-01-24] MEDS: LORATADINE 10 MG TAB PO SCH (08:38)
[2021-01-24] MEDS: METOPROLOL TARTRATE 50 MG TAB PO SCH ×3 (08:38→20:48)
[2021-01-24] MEDS: PANTOPRAZOLE 40 MG TABLET PO SCH ×2 (08:38→20:49)
[2021-01-24] MEDS: diazePAM 5 MG TAB PO SCH ×2 (08:38→20:49)
[2021-01-24] MEDS: GABAPENTIN 100 MG CAP PO SCH ×3 (08:38→20:50)
--- NOTE | 2021-01-24 08:49 | P.PN ---
Subjective Patient is seen in follow-up for end-stage renal disease. She is maintained on hemodialysis on Thursday schedule. Underwent dialysis yesterday with 3 L ultrafiltration. Potassium level high again this morning. No chest pain or shortness of breath. Still quite edematous. Vital signs are stable. General: The patient appeared well nourished and normally developed. HEENT: Head exam is unremarkable. LUNGS: Breath sounds decreased. HEART: Rate and Rhythm are regular. ABDOMEN: Soft, distention noted. EXTREMITITES: 1+ edema. Objective - Vital Signs Vital signs: Vital Signs Temp 98.0 F 01/24/21 07:40 Pulse 73 01/24/21 07:40 Resp 18 01/24/21 07:40 BP 110/63 01/24/21 07:40 Pulse Ox 93 L 01/24/21 07:45 Intake & Output 01/23/21 01/24/21 01/24/21 18:59 06:59 18:59 Intake Total 1200 240 Output Total 3300 Balance -2100 240 Weight 82.7 kg Intake: Oral 900 240 Hemodialysis 300 Output: Hemodialysis 3300 - Labs CBC & Chem 7: 01/24/21 06:09 01/24/21 06:09 Labs: Abnormal Lab Results - Last 24 Hours (Table) 01/23/21 01/23/21 01/23/21 Range/Units 07:40 12:08 20:00 RBC (3.80-5.40) m/uL Hgb (11.4-16.0) gm/dL Hct (34.0-46.0) % RDW (11.5-15.5) % Plt Count (150-450) k/uL Lymphocytes # (1.0-4.8) k/uL Sodium 135 L (137-145) mmol/L Potassium 6.4 H* (3.5-5.1) mmol/L Chloride (98-107) mmol/L Carbon Dioxide 19 L (22-30) mmol/L BUN 53 H (7-17) mg/dL Creatinine 6.19 H (0.52-1.04) mg/dL Glucose 279 H (74-99) mg/dL POC Glucose (mg/dL) 190 H 125 H (75-99) mg/dL AST (14-36) U/L 01/24/21 01/24/2121 Range/Units 06:09 06:09 06:50 RBC 3.39 L (3.80-5.40) m/uL Hgb 10.3 L (11.4-16.0) gm/dL Hct 32.5 L (34.0-46.0) % RDW 17.0 H (11.5-15.5) % Plt Count 98 L (150-450) k/uL Lymphocytes # 0.4 L (1.0-4.8) k/uL Sodium 133 L (137-145) mmol/L Potassium 6.6 H* (3.5-5.1) mmol/L Chloride 96 L (98-107) mmol/L Carbon Dioxide (22-30) mmol/L BUN 42 H (7-17) mg/dL Creatinine 5.43 H (0.52-1.04) mg/dL Glucose 180 H (74-99) mg/dL POC Glucose (mg/dL) 162 H (75-99) mg/dL AST 48 H (14-36) U/L Assessment and Plan Plan: Assessment: 1. End-stage renal disease maintained on hemodialysis on Thursday schedule via a permacath. She has a maturing AV fistula. 2. Acute on chronic diastolic CHF with severe tricuspid regurgitation and pulmonary hypertension. 3. Volume overload. 4. Chronic hyperkalemia secondary to chronic kidney disease. Maintained on Kayexalate outpatient. Expect improvement postdialysis. No evidence of GI bleed. 5. History of endocarditis. 6. Chronic kidney disease mineral bone disease maintained on Renvela. 7. Anemia of chronic kidney disease maintained on Aranesp. Plan: Hemodialysis today with goal 3 L at the filtration. Continue with daily dialysis this week. Hyperkalemia medically treated with IV calcium, IV insulin with D50 as well as kayexalate this morning. Renal diet. Ascites noted on abdominal ultrasound. Interventional radiology consulted for paracentesis. I will give her 25 g of albumin prior to the paracentesis. Maintain IV Bumex.
[2021-01-24] MEDS: ALBUMIN HUMAN 25% 50 ML in EMPTY BAG 1 BAG IVPB SCH ×3 (10:04→12:47)
[2021-01-24] MEDS: SODIUM POLYSTYRENE SULFONATE 15 GM/60 ML BOTTLE PO SCH (10:04)
[2021-01-24] MEDS: BUMETANIDE 0.25 MG/ML 10 ML VIAL IV SCH ×2 (10:04→20:50)
[2021-01-24 11:53] LABS: Glucose,Whole Blood 105 mg/dL (75-99)
--- NOTE | 2021-01-24 13:40 | P.PN ---
Subjective This is a pleasant 55-year-old female past medical history significant for end-stage renal disease on hemodialysis, infective endocarditis status post mitral valve repair in march 2020, hypertension, dyslipidemia, diabetes mellitus, history of liver disease, ascities, pulmonary hypertension, chronic pancreatitis s/p partial pancratectomy and chronic heart failure. She follows in the office with Dr. Tesfaye. We have been asked to see in consultation for chest pain. Patient presents to the hospital on 01/22/21. Patient states she has been having left-sided pain around her diaphragm and upper abdomen. It is non- radiating, nonexertional. She states her pain started on Thursday. She does have associated nausea or vomiting. She also endorses increased weight gain and shortness of breath. She was scheduled to dialysis today but due to her symptoms she decided to present to the emergency department. She does endorse her abdomen feeling more swollen. She endorses she is compliant with her diet, low salt and education. She usually gets 4 L removed during dialysis, which she states has not recently changed. She denies fever, chills, lightheadedness, dizziness, palpitations. She was admitted in November 2020 with ascities underwent paracentesis on 12/03/2020 with 5.1 L drained. DIAGNOSTICS She underwent cardiac catheterization in 2018 revealing normal coronary arteries. TK performed 06/2020 revealed mildly impaired LV function with EF 40-45%, normally functioning bioprosthetic mitral valve and possible vegetation of the lateral wall of the LV. According to the patient she was subsequently transferred at that time to [facility] for closer evaluation and was told this was scar tissue and not recurrent endocarditis. Echocardiogram revealed EF 55-60%, RV is enlarged, LA is mildly dilated, mitral regurgitation, severe tricuspid regurgitation RVSP 80mmHg. 01/24/21: Patient seen and examined at bedside, she states she feels tired, did no sleep well overnight. Blood pressure 110/63 heart rate 73, afebrile, maintaining oxy gen saturation is on room air. Telemetry reviewed patient in sinus mechanism heart rate 70-90s, did have 2 3-4 beat run NSVT. Abdominal ultrasound revealed moderate ascites. Plan for possible paracentesis today. Patient underwent hemodialysis yesterday with documented 3.3L off. Plan for dialysis again today. Laboratory data reviewed WBC 7.0, hemoglobin 10.3, platelets 98, sodium 133, potassium 6.6, BUN 42, serum creatinine 5.4, magnesium 1.7 . She's currently maintained on Bumex 1mg BID IV, atorvastatin 40 mg nightly, clonidine 0.3 mg 3 times a day, hydralazine 100 mg qid, metoprolol tartrate 50 mg 3 times a day. She was also given Kayexalate, IV insulin with D50 and IV calcium this morning for hyperkalemia. She states she is urinating. Documented daily weight is decreasing. PHYSICAL EXAMINATION CONSTITUTIONAL: No apparent distress. HEENT: Head is normocephalic. +JVD CHEST EXAMINATION: Lungs crackles in the bases to auscultation. No chest wall tenderness is noted on palpation or with deep breathing. HEART EXAMINATION: Regular rate and rhythm. S1, S2 heard. Systolic ejection mu rmur apex. ABDOMEN: Soft, nontender. Positive bowel sounds. Distended, tympanic with ascites. EXTREMITIES: 2+ peripheral pulses, trace bilateral lower extremity pitting edema and no calf tenderness. NEUROLOGIC EXAMINATION: Patient is awake, alert and oriented x3. ASSESSMENT Shortness of breath Left sided abdominal/chest pain- atypical, troponin negative x 1, no evidence of ischemia on EKG. Ascites Acute on chronic diastolic heart failure Valvular heart disease s/p mitral valve repair in the setting of endocarditis Chronic liver disease Hypertension End stage renal disease on HD Anemia Pancytopenia Diabetes mellitus type 2 Dyslipidemia Hyperkalemia PLAN Continue Bumex IV BID Nephrology following, plan for HD today, appreciate recommendations IR consult for possible paracentesis Continue home cardiac medications - lopressor, statin, hydralazine, clonidine I/Os, daily weights Monitor renal function and electrolytes Further recommendations based on clinical course Objective - Vital Signs Vital signs: Vital Signs Temp 98.0 F 01/24/21 07:40 Pulse 73 01/24/21 07:40 Resp 18 01/24/21 07:45 BP 110/63 01/24/21 07:40 Pulse Ox 93 L 01/24/21 07:45 Intake & Output 01/23/21 01/24/21 01/24/21 18:59 06:59 18:59 Intake Total 1200 240 Output Total 3300 Balance -2100 240 Weight 82.7 kg Intake: Oral 900 240 Hemodialysis 300 Output: Hemodialysis 3300 - Labs CBC & Chem 7: 01/24/21 06:09 01/24/21 06:09 Labs: Abnormal Lab Results - Last 24 Hours (Table) 01/23/21 01/24/21 01/24/21 Range/Units 20:00 06:09 06:09 RBC 3.39 L (3.80-5.40) m/uL Hgb 10.3 L (11.4-16.0) gm/dL Hct 32.5 L (34.0-46.0) % RDW 17.0 H (11.5-15.5) % Plt Count 98 L (150-450) k/uL Lymphocytes # 0.4 L (1.0-4.8) k/uL Sodium 133 L (137-145) mmol/L Potassium 6.6 H* (3.5-5.1) mmol/L Chloride 96 L (98-107) mmol/L BUN 42 H (7-17) mg/dL Creatinine 5.43 H (0.52-1.04) mg/dL Glucose 180 H (74-99) mg/dL POC Glucose (mg/dL) 125 H (75-99) mg/dL AST 48 H (14-36) U/L 01/24/21 01/24/21 Range/Units 06:50 11:51 RBC (3.80-5.40) m/uL Hgb (11.4-16.0) gm/dL Hct (34.0-46.0) % RDW (11.5-15.5) % Plt Count (150-450) k/uL Lymphocytes # (1.0-4.8) k/uL Sodium (137-145) mmol/L Potassium (3.5-5.1) mmol/L Chloride (98-107) mmol/L BUN (7-17) mg/dL Creatinine (0.52-1.04) mg/dL Glucose (74-99) mg/dL POC Glucose (mg/dL) 162 H 105 H (75-99) mg/dL AST (14-36) U/L
[2021-01-24 16:37] LABS: Glucose,Whole Blood 138 mg/dL (75-99)
[2021-01-24] MEDS: MONTELUKAST 10 MG TAB PO SCH (18:46)
[2021-01-24] MEDS: ATORVASTATIN 40 MG TAB PO SCH (18:46)
[2021-01-24 18:57] LABS: Calcium 9.1 mg/dL (8.4-10.2); Potassium 4.9 mmol/L (3.5-5.1)
[2021-01-24 20:39] LABS: Glucose,Whole Blood 155 mg/dL (75-99)
[2021-01-25] MEDS: MORPHINE SULFATE 2 MG/ML SYRINGE IVP PRN (00:57)
[2021-01-25] MEDS: HYDROcodone/APAP 7.5-325MG 1 EACH TAB PO SCH ×2 (04:02→11:50)
[2021-01-25] MEDS: BENZONATATE 100 MG CAP PO PRN (04:05)
[2021-01-25] MEDS: cloNIDine HCL 0.1 MG TAB PO SCH ×2 (04:55→11:57)
[2021-01-25] MEDS: guaiFENesin-DM 100-10MG/5ML 10 ML CUP PO PRN (04:55)
[2021-01-25] MEDS: hydrALAZINE HCL 50 MG TAB PO SCH ×3 (04:55→15:37)
[2021-01-25] MEDS: SEVELAMER 800 MG TAB PO SCH ×2 (04:56→11:57)
[2021-01-25] MEDS: ASCORBIC ACID 500 MG TAB PO SCH (04:58)
[2021-01-25] MEDS: SILDENAFIL 20 MG TAB PO SCH ×2 (04:58→11:57)
--- NOTE | 2021-01-25 05:28 | PN ---
PROGRESS NOTE 55-year-old white female who has had paracentesis today, 4 L removed. Her abdominal bloating is improving. Her last paracentesis was a month ago. She is saturating 99% on 2 L, pulse 67, respiratory 17-18, temperature 97.9. Cardiovascular S1, S2. Lungs clear. GI is soft. Hematology negative Homans. Psych: Fair mood and affect. ASSESSMENT: 1. Liver failure, ascites, cirrhosis. 2. End-stage renal disease. 3. Fluid overload. 4. Prognosis guarded. 5. Follow up next 24 to 48 hours for discharge. MMODL / IJN: [id number] /
[2021-01-25 06:58] LABS: Glucose,Whole Blood 220 mg/dL (75-99)
[2021-01-25] MEDS: INSULIN ASPART (NovoLOG) 100 UNIT/ML VIAL SQ SCH ×2 (06:58→11:52)
--- NOTE | 2021-01-25 08:32 | US ---
EXAMINATION TYPE: US paracentesis abd w/image DATE OF EXAM: 01/24/2021 COMPARISON: NONE HISTORY: Ascites. PROCEDURE: Maximal barrier technique was utilized. The skin overlying a suitable pocket of fluid was localized with ultrasound and the overlying skin was prepped and draped. Ultrasound was utilized with sterile technique. Lidocaine was used for local anesthesia and a skin sheryl made with a scalpel. Catheter was advanced under direct ultrasound guidance into a suitable pocket of fluid and approximately 4.7 liter s of serous fluid were removed. Catheter was withdrawn and hemostasis achieved. There is no immedia te complication; the patient is discharged in stable condition. IMPRESSION: STATUS POST ULTRASOUND GUIDED PARACENTESIS FOR PALLIATION OF ASCITES. THIS PROCEDURE WA S PERFORMED BY THE UNDERSIGNED.
[2021-01-25] MEDS ORDERED: MIDODRINE 5 MG TAB PO STA (08:47)
--- NOTE | 2021-01-25 09:26 | P.PN ---
Subjective Patient is seen in follow-up for end-stage renal disease. She is maintained on hemodialysis on Thursday schedule. Undergoing daily hemodialysis this admission due to volume overload. She also underwent paracentesis with 4.7 L drained yesterday. Overall feels better. Vital signs are stable. General: The patient appeared well nourished and normally developed. HEENT: Head exam is unremarkable. LUNGS: Breath sounds decreased. HEART: Rate and Rhythm are regular. ABDOMEN: Soft, distention noted. EXTREMITITES: 1+ edema. Objective - Vital Signs Vital signs: Vital Signs Temp 98.1 F 01/25/21 08:25 Pulse 58 L 01/25/21 08:25 Resp 16 01/25/21 08:25 BP 102/57 01/25/21 08:25 Pulse Ox 99 01/25/21 08:25 Intake & Output 01/24/21 01/25/21 01/25/21 18:59 06:59 18:59 Intake Total 660 240 Output Total 3500 0 Balance -2840 0 240 Weight 76.6 kg Intake: Oral 660 240 Output: Urine 0 Hemodialysis 3500 Other: Voiding Method Toilet Toilet - Labs CBC & Chem 7: 01/24/21 06:09 01/24/21 18:08 Labs: Abnormal Lab Results - Last 24 Hours (Table) 01/24/21 01/24/21 01/24/21 Range/Units 11:51 16:36 18:08 Sodium 136 L (137-145) mmol/L Chloride 93 L (98-107) mmol/L BUN 29 H (7-17) mg/dL Creatinine 4.15 H (0.52-1.04) mg/dL Glucose 163 H (74-99) mg/dL POC Glucose (mg/dL) 105 H 138 H (75-99) mg/dL 01/24/21 01/25/21 Range/Units 20:21 06:57 Sodium (137-145) mmol/L Chloride (98-107) mmol/L BUN (7-17) mg/dL Creatinine (0.52-1.04) mg/dL Glucose (74-99) mg/dL POC Glucose (mg/dL) 155 H 220 H (75-99) mg/dL Assessment and Plan Plan: Assessment: 1. End-stage renal disease maintained on hemodialysis on Thursday schedule via a permacath. She has a maturing AV fistula. 2. Acute on chronic diastolic CHF with severe tricuspid regurgitation and pulmonary hypertension. 3. Volume overload. Improving with daily ultrafiltration. 4. Chronic hyperkalemia secondary to chronic kidney disease. Maintained on Kayexalate outpatient. Improved postdialysis. No evidence of GI bleed. 5. History of endocarditis. 6. Chronic kidney disease mineral bone disease maintained on Renvela. 7. Anemia of chronic kidney disease maintained on Aranesp. 8. Ascites status post paracentesis with 4.7 L drained on 01/24/2021. Plan: Currently seen while undergoing hemodialysis. Another treatment tomorrow per her outpatient schedule. Renal diet. Change Bumex to oral. Midodrine as needed during dialysis for hypotension.
[2021-01-25 11:10] VITALS: RESP 18
[2021-01-25] MEDS: BUMETANIDE 0.25 MG/ML 10 ML VIAL IV SCH (11:41)
[2021-01-25] MEDS: GABAPENTIN 100 MG CAP PO SCH ×2 (11:50→15:37)
[2021-01-25] MEDS: PANTOPRAZOLE 40 MG TABLET PO SCH (11:50)
[2021-01-25] MEDS: diazePAM 5 MG TAB PO SCH (11:50)
[2021-01-25] MEDS: LORATADINE 10 MG TAB PO SCH (11:50)
[2021-01-25 11:52] LABS: Glucose,Whole Blood 159 mg/dL (75-99)
[2021-01-25] MEDS: METOPROLOL TARTRATE 50 MG TAB PO SCH ×2 (11:57→15:39)
[2021-01-25] MEDS: SODIUM POLYSTYRENE SULFONATE 15 GM/60 ML BOTTLE PO SCH (11:57)
--- NOTE | 2021-01-25 14:00 | P.PN ---
Subjective This is a pleasant 55-year-old female past medical history significant for end-stage renal disease on hemodialysis, infective endocarditis status post mitral valve repair in march 2020, hypertension, dyslipidemia, diabetes mellitus, history of liver disease, ascities, pulmonary hypertension, chronic pancreatitis s/p partial pancratectomy and chronic heart failure. She follows in the office with Dr. Tesfaye. We have been asked to see in consultation for chest pain. Patient presents to the hospital on 01/22/21. Patient states she has been having left-sided pain around her diaphragm and upper abdomen. It is non- radiating, nonexertional. She states her pain started on Thursday. She does have associated nausea or vomiting. She also endorses increased weight gain and shortness of breath. She was scheduled to dialysis today but due to her symptoms she decided to present to the emergency department. She does endorse her abdomen feeling more swollen. She endorses she is compliant with her diet, low salt and education. She usually gets 4 L removed during dialysis, which she states has not recently changed. She denies fever, chills, lightheadedness, dizziness, palpitations. She was admitted in November 2020 with ascities underwent paracentesis on 12/03/2020 with 5.1 L drained. DIAGNOSTICS She underwent cardiac catheterization in 2018 revealing normal coronary arteries. KT performed 06/2020 revealed mildly impaired LV function with EF 40-45%, normally functioning bioprosthetic mitral valve and possible vegetation of the lateral wall of the LV. According to the patient she was subsequently transferred at that time to [facility] for closer evaluation and was told this was scar tissue and not recurrent endocarditis. Echocardiogram revealed EF 55-60%, RV is enlarged, LA is mildly dilated, mitral regurgitation, severe tricuspid regurgitation RVSP 80mmHg. 01/24/21 Patient seen and examined at bedside, she states she feels tired, did no sleep well overnight. Blood pressure 110/63 heart rate 73, afebrile, maintaining oxyg en saturation is on room air. Telemetry reviewed patient in sinus mechanism heart rate 70-90s, did have 2 3-4 beat run NSVT. Abdominal ultrasound revealed moderate ascites. Plan for possible paracentesis today. Patient underwent hemodialysis yesterday with documented 3.3L off. Plan for dialysis again today. Laboratory data reviewed WBC 7.0, hemoglobin 10.3, platelets 98, sodium 133, potassium 6.6, BUN 42, serum creatinine 5.4, magnesium 1.7 . She's currently maintained on Bumex 1mg BID IV, atorvastatin 40 mg nightly, clonidine 0.3 mg 3 times a day, hydralazine 100 mg qid, metoprolol tartrate 50 mg 3 times a day. She was also given Kayexalate, IV insulin with D50 and IV calcium this morning for hyperkalemia. She states she is urinating. Documented daily weight is decreasing. 01/25/2021: Patient seen and examined at bedside, she states she is feeling much better. Patient underwent paracentesis with 4.7 L removed. She also underwent hemodialysis yesterday with 3.5 L removed. She states her breathing has improved and her lower extremity edema has also improved. Blood pressure 145/ 70, heart rate 63, afebrile, maintaining oxygen saturations on 2 L nasal cannula. She's currently maintained on atorvastatin 40 mg nightly, Bumex 1 mg twice a day, clonidine 0.3 mg 3 times a day, hydralazine 100 mg qid, metoprolol tartrate 50 mg 3 times a day. Laboratory reviewed sodium 136, potassium 4.9, BUN 29, serum creatinine 4.1 PHYSICAL EXAMINATION CONSTITUTIONAL: No apparent distress. HEENT: Head is normocephalic. Neck Supple CHEST EXAMINATION: Lungs clear to auscultation bilaterally to auscultation. HEART EXAMINATION: Regular rate and rhythm. S1, S2 heard. Systolic ejection murmur apex. ABDOMEN: Soft, nontender. Positive bowel sounds. Less distended EXTREMITIES: 2+ peripheral pulses, no bilateral lower extremity pitting edema and no calf tenderness. NEUROLOGIC EXAMINATION: Patient is awake, alert and oriented x3. ASSESSMENT Shortness of breath Left sided abdominal/chest pain- atypical, troponin negative x 1, no evidence of ischemia on EKG. Ascites Acute on chronic diastolic heart failure Valvular heart disease s/p mitral valve repair in the setting of endocarditis Chronic liver disease Hypertension End stage renal disease on HD Anemia Pancytopenia Diabetes mellitus type 2 Dyslipidemia Hyperkalemia - improved PLAN From a cardiology perspective, patient is stable to be discharged home Continue home cardiac medications - lopressor, statin, hydralazine, clonidine Diuresis per nephrology Follow up with Dr. Tesfaye within 1 week. Objective - Vital Signs Vital signs: Vital Signs Temp 98.0 F 01/25/21 11:49 Pulse 61 01/25/21 11:49 Resp 18 01/25/21 11:49 BP 121/70 01/25/21 11:49 Pulse Ox 97 01/25/21 11:49 Intake & Output 01/24/21 01/25/21 01/25/21 18:59 06:59 18:59 Intake Total 660 240 Output Total 3500 0 2500 Balance -2840 0 -2260 Weight 76.6 kg Intake: Oral 660 240 Output: Urine 0 Hemodialysis 3500 2500 Other: Voiding Method Toilet Toilet - Labs CBC & Chem 7: 01/24/21 06:09 01/24/21 18:08 Labs: Abnormal Lab Results - Last 24 Hours (Table) 01/24/21 01/24/21 01/24/21 Range/Units 16:36 18:08 20:21 Sodium 136 L (137-145) mmol/L Chloride 93 L (98-107) mmol/L BUN 29 H (7-17) mg/dL Creatinine 4.15 H (0.52-1.04) mg/dL Glucose 163 H (74-99) mg/dL POC Glucose (mg/dL) 138 H 155 H (75-99) mg/dL 01/25/21 01/25/21 Range/Units 06:57 11:51 Sodium (137-145) mmol/L Chloride (98-107) mmol/L BUN (7-17) mg/dL Creatinine (0.52-1.04) mg/dL Glucose (74-99) mg/dL POC Glucose (mg/dL) 220 H 159 H (75-99) mg/dL
[2021-01-25 14:34] LABS: Anisocytosis Slight; Basophils % (A) 1 %; Eosinophils # (A) 0.1 k/uL (0-0.7); Eosinophils % (A) 5 %; HCT 32.5 % (34.0-46.0); HGB 10.6 gm/dL (11.4-16.0); Hypochromasia Slight; Lymphocytes # (A) 0.3 k/uL (1.0-4.8); Lymphocytes % (A) 10 %; MCH 30.9 pg (25.0-35.0); MCHC 32.8 g/dL (31.0-37.0); MCV 94.3 fL (80.0-100.0); Mean Platelet Volume 8.7; Monocytes # (A) 0.4 k/uL (0-1.0); Monocytes % (A) 12 %; Neutrophils # (A) 2.1 k/uL (1.3-7.7); Neutrophils % (A) 68 %; RBC 3.44 m/uL (3.80-5.40); RDW 17.3 % (11.5-15.5); WBC 3.1 k/uL (3.8-10.6)
[2021-01-25 14:35] LABS: Platelet Count 94 k/uL (150-450)
[2021-01-25 14:44] LABS: Calcium 9.2 mg/dL (8.4-10.2); Magnesium 1.9 mg/dL (1.6-2.3); Potassium 4.7 mmol/L (3.5-5.1); Total Bilirubin 0.8 mg/dL (0.2-1.3); Total Protein 6.6 g/dL (6.3-8.2)
[2021-01-25 15:33] VITALS: BP 147/67; PULSE 77; TEMP 97.9
[2021-01-25] MEDS: BENZOCAINE/MENTHOL LOZENG 1 EACH LOZENGE MUCOUS MEM PRN (15:37)
[2021-01-25] MEDS ORDERED: BUMETANIDE 1 MG TAB PO SCH (16:00)
== END 2021-01-25 16:45 | disposition home or self-care (01) | DRG 640 ==
LOC: EC 08:00 → 3SCARD 09:42
PROVIDERS: ADMIT Family Medicine; ATTEND Family Medicine
PROC: 5A1D70Z Performance of Urinary Filtration, Intermittent, Less than 6 Hours Per Day (ICD-10-PCS; principal; 2021-01-22)
DX: E87.70 Fluid overload, unspecified (principal); I50.33 Acute on chronic diastolic (congestive) heart failure; N18.6 End stage renal disease; D61.818 Other pancytopenia; I13.2 Hypertensive heart and chronic kidney disease with heart failure and with stage 5 chronic kidney disease, or end stage renal disease; K86.1 Other chronic pancreatitis; Z16.24 Resistance to multiple antibiotics; D63.1 Anemia in chronic kidney disease; E11.22 Type 2 diabetes mellitus with diabetic chronic kidney disease; E66.9 Obesity, unspecified; E78.5 Hyperlipidemia, unspecified; E87.5 Hyperkalemia; I08.1 Rheumatic disorders of both mitral and tricuspid valves; I27.22 Pulmonary hypertension due to left heart disease; Z99.2 Dependence on renal dialysis; Z95.3 Presence of xenogenic heart valve; Z86.79 Personal history of other diseases of the circulatory system; Z86.14 Personal history of Methicillin resistant Staphylococcus aureus infection; Z82.49 Family history of ischemic heart disease and other diseases of the circulatory system; Z79.899 Other long term (current) drug therapy; Z79.4 Long term (current) use of insulin
CPT/HCPCS: 36415; 49083; 71046; 76705; 80048; 80053; 83735; 83880; 84484; 85025; 85610; 85730; 87635; 90935; 93005; 93306; 99285

== ENCOUNTER → 2021-01-29 | Outpatient (CLI) | payer OTHER ==
--- NOTE | 2021-01-29 17:43 | CT ---
EXAMINATION TYPE: CT chest wo con DATE OF EXAM: 01/29/2021 COMPARISON: Radiographs 01/22/2021. HISTORY: left sided chest/rib pain CT DLP: 539 mGycm. Automated Exposure Control for Dose Reduction was Utilized. TECHNIQUE: CT scan of the thorax is performed without IV contrast. FINDINGS: LUNGS: There is diffuse mild hazy opacity. No significant infiltrate or consolidation. There is no pleural effusion or pneumothorax seen. The tracheobronchial tree is patent. MEDIASTINUM: Lack of IV contrast is noted to limit evaluation for mediastinal and especially hilar ad enopathy. There are no definitive greater than 1 cm hilar or mediastinal lymph nodes. No cardiomega ly or pericardial effusion is seen. Advanced coronary atherosclerotic disease seen. Cardiac valve rep lacement seen. There is a right IJ dialysis type catheter in place. OTHER: Partially imaged small to moderate volume abdominal ascites. Also advanced abdominal atheroscl erotic disease. Marked bilateral renal atrophy. No acute osseous abnormality. Diffuse sclerotic saravia es of the axial skeleton without bony destruction or suspicious lesions, in keeping with renal osteod ystrophy. IMPRESSION: Mild hazy opacity, suggestive of interstitial edema/atelectasis. Small to moderate volume abdominal ascites. Chronic renal disease.
== END | disposition home or self-care (01) ==
LOC: RADCTMAIN 16:48
PROVIDERS: ATTEND Family Medicine
DX: R91.8 Other nonspecific abnormal finding of lung field (principal)
CPT/HCPCS: 71250

== ENCOUNTER 2021-04-19 08:42 | Day surgery (SDC) | payer OTHER ==
[2021-04-19 09:27] VITALS: TEMP 97.9
[2021-04-19 09:32] LABS: Mean Platelet Volume 7.7; Platelet Count 124 k/uL (150-450)
[2021-04-19 09:40] LABS: INR 1.1 (<1.2); Prothrombin Time 11.1 sec (9.0-12.0)
[2021-04-19 10:58] VITALS: RESP 18
[2021-04-19] MEDS: ALBUMIN HUMAN 25% 50 ML in EMPTY BAG 1 BAG IVPB SCH ×3 (11:23→11:43)
[2021-04-19 12:08] VITALS: BP 152/74; PULSE 62
--- NOTE | 2021-04-19 14:29 | US ---
EXAMINATION TYPE: US paracentesis abd w/image DATE OF EXAM: 04/19/2021 COMPARISON: NONE HISTORY: Ascites. PROCEDURE: Maximal barrier technique was utilized. The skin overlying a suitable pocket of fluid was localized with ultrasound and the overlying skin was prepped and draped. Ultrasound was utilized with sterile technique. Lidocaine was used for local anesthesia and a skin sheryl made with a scalpel. Catheter was advanced under direct ultrasound guidance into a suitable pocket of fluid and approximately 4.5 liter s of serous fluid were removed. Catheter was withdrawn and hemostasis achieved. There is no immedia te complication; the patient is discharged in stable condition. IMPRESSION: STATUS POST ULTRASOUND GUIDED PARACENTESIS FOR PALLIATION OF ASCITES. THIS PROCEDURE WA S PERFORMED BY THE UNDERSIGNED.
== END 2021-04-19 12:00 | disposition home or self-care (01) ==
LOC: RADPROMAIN 08:42
PROVIDERS: ATTEND Family Medicine
DX: R18.8 Other ascites (principal); K74.60 Unspecified cirrhosis of liver
CPT/HCPCS: 82565; 82947; 85049; 85610; 36415; 49083; P9047

== ENCOUNTER 2021-04-23 14:40 | Emergency (ER) | payer OTHER ==
[2021-04-23 16:00] VITALS: RESP 18; TEMP 99.1
--- NOTE | 2021-04-23 16:27 | ED ---
General Adult HPI - General Chief complaint: Abdominal Pain Stated complaint: R side pain Time Seen by Provider: 04/23/21 16:18 Source: patient, family, RN notes reviewed, old records reviewed Mode of arrival: ambulatory Limitations: no limitations - History of Present Illness Initial comments: 55-year-old female, alert and oriented 4, presents to the emergency room with complaints of right-sided abdominal pain. Patient states that she had a paracen tesis on Thursday with Dr. Henry and he drained 4.5 L of fluid from her abdomen. Patient states that Thursday she developed pain at the drainage site and has not been able to sleep or get comfortable. She states that she did see Dr. 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 Bragg. Patient states that she contacted Dr. Bragg who told her to co me to the emergency room for evaluation for possible abdominal infection. -: days(s) (4) Location: abdomen (right mid abdominal pain at paracentesis site) Radiation: non-radiation Severity scale (1-10): 10 Quality: constant Consistency: constant Improves with: none Worsens with: movement Associated Symptoms: denies other symptoms - Related Data Home Medications Medication Instructions Recorded Confirmed cloNIDine HCL [Catapres] 0.3 mg PO TID@0530,1300,1900 12/16/16 04/19/21 INSULIN LISPRO (humaLOG) [humaLOG] 10 unit SQ AC-TID 07/12/18 04/19/21 hydrALAZINE HCL [Apresoline] 100 mg PO QID 12/14/18 04/19/21 HYDROcodone/APAP 7.5-325MG [[place] 1 tab PO Q8H 11/08/19 04/19/21 7.5-325] Albuterol Sulfate [Proair Hfa] 2 puff INHALATION RT-Q6H PRN 01/28/20 04/19/21 traMADol HCL [Ultram] 50 mg PO Q12H PRN 05/13/20 04/19/21 Ascorbic Acid [Vitamin C] 500 mg PO DAILY@0530 07/09/20 04/19/21 Metoprolol Tartrate [Lopressor] 50 mg PO TID 07/09/20 04/19/21 Gabapentin [Neurontin] 100 mg PO TID 08/02/20 04/19/21 Omeprazole 20 mg PO BID 08/02/20 04/19/21 diazePAM [Valium] 5 mg PO BID 08/13/20 04/19/21 Sodium Polystyrene Sulfonate 20 gm PO SUMOWEFR 09/06/20 04/19/21 [Kayexalate] Sevelamer [Renvela] 2,400 mg PO AC-TID 12/01/20 04/19/21 Sevelamer [Renvela] 800 mg PO DAILY PRN 12/01/20 04/19/21 INSULIN LISPRO (humaLOG) [humaLOG] See Protocol SQ AC-TID 01/22/21 04/19/21 Cinacalcet [Sensipar] 30 mg PO DAILY 04/11/21 04/19/21 Fexofenadine HCl [Candice Allergy] 180 mg PO DAILY 04/11/21 04/19/21 Insulin Glargine,Hum.rec.anlog 45 unit SQ HS 04/11/21 04/19/21 [Lantus Solostar Pen] Zinc 50 mg PO DAILY 04/11/21 04/19/21 Previous Rx's Medication Instructions Recorded Darbepoetin Drew [Aranesp] 40 mcg SQ Q7D syringe 12/07/20 rOPINIRole HCL [Requip] 1 mg PO TID tab 12/07/20 Bumetanide [BUMEX] 1 mg PO BID@0900,1600 30 Days #60 01/25/21 tab Cephalexin [Keflex] 500 mg PO Q6HR 7 Days #28 cap 04/23/21 Allergies Allergy/AdvReac Type Severity Reaction Status Date / Time Anesthetics - Amide Type - Allergy cardiac Verified 04/23/21 15:59 Select A arrest Anesthetics - Andree Type- Allergy cardiac Verified 04/23/21 15:59 Parabens arrest hydromorphone [From Dilaudid] Allergy Swelling Verified 04/23/21 15:59 ciprofloxacin [From Cipro] AdvReac AFFECTED Verified 04/23/21 15:59 EYESIGHT ciprofloxacin HCl AdvReac AFFECTED Verified 04/23/21 15:59 [From Cipro] EYESIGHT Iodinated Contrast Media AdvReac RENAL Verified 04/23/21 15:59 FAILURE Review of Systems ROS Statement: Those systems with pertinent positive or pertinent negative responses have been documented in the HPI. ROS Other: All systems not noted in ROS Statement are negative. Past Medical History Past Medical History: Blood Disorder, Coronary Artery Disease (CAD), Chest Pain / Angina, Heart Failure, Diabetes Mellitus, Dialysis, Hyperlipidemia, Hypertension, Liver Disease, Pneumonia, Renal Disease Additional Past Medical History / Comment(s): Pt recently admitted to [facility] on 08/02/20 with fluid overload/swelling. Other hx: MRSA infection in blood with IV ABX while at dialysis until 09/06/20, bilateral cataracts, recently diagnosed with bilateral retinal hemorrhages, hypertriglyceridemia-induced acute pancreatitis, THEN necrotizing pancreatitis. hemodialysis for acute kidney injury 2 months in 2009 after pancreatic OR, 11/2015 diagnosed w/ chronic kidney disease-hemodialysis /-last hemodialysis 06/02/19, IDDM type II, past DKA, UTI, chronic anemia, frequent body cramping, occasional low back pain, carter's palsy x2, past L leg fx, possible liver disease-recent liver bx-results unknown per pt (2009). History of Any Multi-Drug Resistant Organisms: MRSA Date of last positivie culture/infection: 08-02-20 MDRO Source:: Blood Past Surgical History: Cardiac Valve Replacement, Orthopedic Surgery, Uterine Ablation Additional Past Surgical History / Comment(s): 08/26/17 colonoscopy with polypectomy/bx, pancreatic resection at [facility] 2009, bone marrow biopsies X2-last one 05/19/16,. dialysis chest port x 2 with removals, Left arm shunt placement for dialysis - December 2015 and a revision done with shunt. Left forearm Vein Revision - October 2019, liver biopsy.Lt arm fistula repair november 2020.heart mitral valve repaced 2019 at [facility],. chest chest wall port,. left upper arm fistula 2020,. paracentesis procedures Past Anesthesia/Blood Transfusion Reactions: No Reported Reaction Additional Past Anesthesia/Blood Transfusion Reaction / Comment(s): Pt has received blood transfusions without reaction. Past Psychological History: No Psychological Hx Reported Smoking Status: Never smoker Past Alcohol Use History: None Reported Past Drug Use History: None Reported - Past Family History Brother(s) Family Medical History: No Reported History Mother Family Medical History: Cancer Additional Family Medical History / Comment(s): throat Father Family Medical History: Hypertension Additional Family Medical History / Comment(s): alcoholism General Exam Limitations: no limitations General appearance: alert, in no apparent distress Head exam: Present: atraumatic, normocephalic, normal inspection Eye exam: Present: normal appearance, EOMI Neck exam: Present: normal inspection, full ROM Respiratory exam: Present: normal lung sounds bilaterally. Absent: respiratory distress, wheezes, rales, rhonchi, stridor, chest wall tenderness, accessory mus joe use, decreased breath sounds, prolonged expiratory Cardiovascular Exam: Present: regular rate, normal rhythm, normal heart sounds. Absent: rubs, gallop, clicks GI/Abdominal exam: Present: distended, tenderness (Right side abdomen with bruising at paracentesis site), normal bowel sounds. Absent: rebound, rigid Back exam: Present: normal inspection, full ROM. Absent: tenderness, CVA tenderness (R), CVA tenderness (L), rash noted Neurological exam: Present: alert, oriented X3 Psychiatric exam: Present: normal affect, normal mood Skin exam: Present: warm, dry, intact, normal color. Absent: rash, cyanosis, diaphoretic Course Vital Signs 04/23/21 04/23/21 15:55 19:14 Temperature 99.1 F Pulse Rate 67 70 Respiratory 18 18 Rate Blood Pressure 190/87 152/79 O2 Sat by Pulse 99 98 Oximetry Medical Decision Making - Medical Decision Making Well appearing 55-year-old female presents to the emergency room with complaints of right-sided abdominal pain. Patient states that she had a paracentesis on Thursday and had 4.5 L of fluid drained from her abdomen. Patient states that Thursday she developed right sided abdominal pain and has not been able to sleep or get comfortable. Labs show no evidence of leukocytosis. BUN and creatinine remain elevated from chronic kidney disease. Urinalysis shows turbid urine with small amount of blood, large leukocyte esterase, 6 WBCs with many bacteria. She will be treated for urinary tract infection. Ultrasound abdomen shows hepatic cirrhosis with a small amount of ascites. T here is questionable gallstones within the gallbladder without evidence of cholecystitis. She will be directed to follow up with primary care doctor this week regarding gallstones and UTI. She was instructed to eat a gallbladder friendly diet, avoiding all greasy and fried foods from her diet until seen by her doctor. She was directed to continue the pain medications that she has been previously prescribed including the Lidoderm patches. Shee is agreeable to this plan of care. Case discussed with Dr. Zambrano - Lab Data Result diagrams: 04/23/21 16:31 04/23/21 16:31 Lab Results 04/23/21 04/23/21 04/23/21 Range/Units 16:31 16:31 16:31 WBC 4.8 (3.8-10.6) k/uL RBC 3.80 (3.80-5.40) m/uL Hgb 11.7 (11.4-16.0) gm/dL Hct 36.9 (34.0-46.0) % MCV 97.2 (80.0-100.0) fL MCH 30.9 (25.0-35.0) pg MCHC 31.7 (31.0-37.0) g/dL RDW 17.3 H (11.5-15.5) % Plt Count 135 L (150-450) k/uL MPV 8.6 Neutrophils % 81 % Lymphocytes % 9 % Monocytes % 7 % Eosinophils % 2 % Basophils % 1 % Neutrophils # 3.9 (1.3-7.7) k/uL Lymphocytes # 0.4 L (1.0-4.8) k/uL Monocytes # 0.3 (0-1.0) k/uL Eosinophils # 0.1 (0-0.7) k/uL Basophils # 0.0 (0-0.2) k/uL Hypochromasia Slight Anisocytosis Slight Macrocytosis Slight Sodium 135 L (137-145) mmol/L Potassium 5.0 (3.5-5.1) mmol/L Chloride 94 L (98-107) mmol/L Carbon Dioxide 28 (22-30) mmol/L Anion Gap 13 mmol/L BUN 38 H (7-17) mg/dL Creatinine 5.63 H (0.52-1.04) mg/dL Est GFR (CKD-EPI)AfAm 9 (>60 ml/min/1.73 sqM) Est GFR (CKD-EPI)NonAf 8 (>60 ml/min/1.73 sqM) Glucose 211 H (74-99) mg/dL Plasma Lactic Acid Micha 0.8 (0.7-2.0) mmol/L Calcium 8.8 (8.4-10.2) mg/dL Total Bilirubin 0.8 (0.2-1.3) mg/dL AST 17 (14-36) U/L ALT 10 (4-34) U/L Alkaline Phosphatase 144 H (38-126) U/L Total Protein 6.7 (6.3-8.2) g/dL Albumin 4.2 (3.5-5.0) g/dL Amylase 43 (30-110) U/L Lipase 34 (23-300) U/L Urine Color Urine Appearance (Clear) Urine pH (5.0-8.0) Ur Specific [place] (1.001-1.035) Urine Protein (Negative) Urine Glucose (UA) (Negative) Urine Ketones (Negative) Urine Blood (Negative) Urine Nitrite (Negative) Urine Bilirubin (Negative) Urine Urobilinogen (<2.0) mg/dL Ur Leukocyte Esterase (Negative) Urine RBC (0-5) /hpf Urine WBC (0-5) /hpf Ur Squamous Epith Cells (0-4) /hpf Urine Bacteria (None) /hpf Urine Mucus (None) /hpf 04/23/21 Range/Units 16:40 WBC (3.8-10.6) k/uL RBC (3.80-5.40) m/uL Hgb (11.4-16.0) gm/dL Hct (34.0-46.0) % MCV (80.0-100.0) fL MCH (25.0-35.0) pg MCHC (31.0-37.0) g/dL RDW (11.5-15.5) % Plt Count (150-450) k/uL MPV Neutrophils % % Lymphocytes % % Monocytes % % Eosinophils % % Basophils % % Neutrophils # (1.3-7.7) k/uL Lymphocytes # (1.0-4.8) k/uL Monocytes # (0-1.0) k/uL Eosinophils # (0-0.7) k/uL Basophils # (0-0.2) k/uL Hypochromasia Anisocytosis Macrocytosis Sodium (137-145) mmol/L Potassium (3.5-5.1) mmol/L Chloride (98-107) mmol/L Carbon Dioxide (22-30) mmol/L Anion Gap mmol/L BUN (7-17) mg/dL Creatinine (0.52-1.04) mg/dL Est GFR (CKD-EPI)AfAm (>60 ml/min/1.73 sqM) Est GFR (CKD-EPI)NonAf (>60 ml/min/1.73 sqM) Glucose (74-99) mg/dL Plasma Lactic Acid Micha (0.7-2.0) mmol/L Calcium (8.4-10.2) mg/dL Total Bilirubin (0.2-1.3) mg/dL AST (14-36) U/L ALT (4-34) U/L Alkaline Phosphatase (38-126) U/L Total Protein (6.3-8.2) g/dL Albumin (3.5-5.0) g/dL Amylase (30-110) U/L Lipase (23-300) U/L Urine Color Yellow Urine Appearance Turbid H (Clear) Urine pH 8.5 H (5.0-8.0) Ur Specific [place] 1.012 (1.001-1.035) Urine Protein 3+ H (Negative) Urine Glucose (UA) 2+ H (Negative) Urine Ketones Negative (Negative) Urine Blood Small H (Negative) Urine Nitrite Negative (Negative) Urine Bilirubin Negative (Negative) Urine Urobilinogen <2.0 (<2.0) mg/dL Ur Leukocyte Esterase Large H (Negative) Urine RBC 7 H (0-5) /hpf Urine WBC 136 H (0-5) /hpf Ur Squamous Epith Cells 43 H (0-4) /hpf Urine Bacteria Many H (None) /hpf Urine Mucus Rare H (None) /hpf Disposition Clinical Impression: UTI (urinary tract infection), Gallstones Disposition: HOME SELF-CARE Condition: Good Instructions (If sedation given, give patient instructions): Gallstones (ED), Urinary Tract Infection in Women (ED) Additional Instructions: Take antibiotics for the urinary tract infection as prescribed. Follow-up with your primary care doctor this week. 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 Continue your pain medications and lidoderm patches as previously prescribed. Return to the emergency room with any new or worsening symptoms. Prescriptions: Cephalexin [Keflex] 500 mg PO Q6HR 7 Days #28 cap Is patient prescribed a controlled substance at d/c from ED?: No Referrals: David Bragg MD [Primary Care Provider] - 1-2 days Time of Disposition: 18:49
[2021-04-23 16:44] LABS: Anisocytosis Slight; Basophils % (A) 1 %; Eosinophils # (A) 0.1 k/uL (0-0.7); Eosinophils % (A) 2 %; HCT 36.9 % (34.0-46.0); HGB 11.7 gm/dL (11.4-16.0); Hypochromasia Slight; Lymphocytes # (A) 0.4 k/uL (1.0-4.8); Lymphocytes % (A) 9 %; MCH 30.9 pg (25.0-35.0); MCHC 31.7 g/dL (31.0-37.0); MCV 97.2 fL (80.0-100.0); Macrocytosis Slight; Mean Platelet Volume 8.6; Monocytes # (A) 0.3 k/uL (0-1.0); Monocytes % (A) 7 %; Neutrophils # (A) 3.9 k/uL (1.3-7.7); Neutrophils % (A) 81 %; Platelet Count 135 k/uL (150-450); RDW 17.3 % (11.5-15.5); WBC 4.8 k/uL (3.8-10.6)
[2021-04-23 16:52] LABS: Albumin 4.2 g/dL (3.5-5.0); Calcium 8.8 mg/dL (8.4-10.2); Total Bilirubin 0.8 mg/dL (0.2-1.3); Total Protein 6.7 g/dL (6.3-8.2)
[2021-04-23 16:53] LABS: Appearance,Urine Turbid (Clear); Bacteria,Urine Many /hpf; Bilirubin,Urine Negative (Negative); Blood,Urine Small (Negative); Color,Urine Yellow; Glucose,Urine (UA) 2+ (Negative); Ketones,Urine Negative (Negative); Leukocyte Esterase,Urine Large (Negative); Mucus,Urine Rare /hpf; Nitrite,Urine Negative (Negative); PH, Urine 8.5 (5.0-8.0); Protein,Urine 3+ (Negative); RBC,Urine 7 /hpf (0-5); Specific Gravity,Urine 1.012 (1.001-1.035); Squamous Epithelial Cell,Urine 43 /hpf (0-4); Urobilinogen,Urine <2.0 mg/dL (<2.0); WBC,Urine 136 /hpf (0-5)
--- NOTE | 2021-04-23 17:05 | US ---
EXAMINATION TYPE: US abdomen limited DATE OF EXAM: 04/23/2021 COMPARISON: Paracentesis 04/19/2021 CT chest 01/29/2021 CLINICAL HISTORY: right sided pain s/p paracentesis Thursday. RUq pain for 3 days, cirrhosis EXAM MEASUREMENTS: Liver Length: 21.8 cm Gallbladder Wall: 0.3 cm CBD: 0.7 cm Right Kidney: not seen Pancreas: not seen due to bowel gas Liver: The liver demonstrates coarsened and hyperechoic echotexture with nodular border. Note that i ncreased echogenicity limits evaluation for focal hepatic lesions. Gallbladder: Fold within the gallbladder lumen as seen on prior CT, some dependant irregularity coul d represent stones Evidence for sonographic Campos's sign: yes CBD: wnl Right Kidney: not seen, patient states she had renal disease. IVC: The visualized portions of the inferior vena cava demonstrate a normal course and caliber. FREE FLUID: Free fluid is seen throughout the abdomen IMPRESSION: 1. Hepatic cirrhosis with a small amount of ascites. 2. Layering questionable gallstones within the gallbladder without convincing evidence for acute chol ecystitis. If there remains clinical concern for cholecystitis consider dedicated HIDA scan.
[2021-04-23] MEDS ORDERED: MORPHINE SULFATE 4 MG/ML SYRINGE IVP STA (18:31)
[2021-04-23] MEDS ORDERED: ONDANSETRON 4 MG/2 ML VIAL IVP STA (18:31)
[2021-04-23] MEDS ORDERED: CEPHALEXIN 500 MG CAP PO STA (18:51)
[2021-04-23] MEDS ORDERED: CEPHALEXIN 500MG STARTER PACK 4 CAP BTL PO STA (18:52)
[2021-04-23 19:15] VITALS: BP 152/79; PULSE 70
== END 2021-04-23 19:26 | disposition home or self-care (01) ==
LOC: EC 14:40
DX: N39.0 Urinary tract infection, site not specified (principal); K80.20 Calculus of gallbladder without cholecystitis without obstruction; I11.0 Hypertensive heart disease with heart failure; I50.9 Heart failure, unspecified; E11.9 Type 2 diabetes mellitus without complications; E78.5 Hyperlipidemia, unspecified; I25.10 Atherosclerotic heart disease of native coronary artery without angina pectoris; Z91.09 Other allergy status, other than to drugs and biological substances; Z88.5 Allergy status to narcotic agent; Z88.1 Allergy status to other antibiotic agents; Z91.041 Radiographic dye allergy status; Z79.899 Other long term (current) drug therapy; Z79.84 Long term (current) use of oral hypoglycemic drugs; Z79.4 Long term (current) use of insulin
CPT/HCPCS: 80053; 82150; 83605; 83690; 85025; 87086; 76705; 99284; 96374; 96375; J2270; J2405; 36415; 81001

== ENCOUNTER 2021-06-17 00:28 | Emergency (ER) | payer OTHER ==
[2021-06-17 00:42] VITALS: TEMP 98.2
[2021-06-17] MEDS ORDERED: MORPHINE SULFATE 4 MG/ML SYRINGE IM STA (03:07)
--- NOTE | 2021-06-17 03:24 | ED ---
General Adult HPI - General Chief complaint: Extremity Injury, Lower Stated complaint: Leg pain, chest pain Time Seen by Provider: 06/17/21 02:09 Source: patient Mode of arrival: wheelchair - History of Present Illness Initial comments: Sara is a 56-year-old female with history of end-stage renal disease, poorly controlled diabetes multiple other comorbidities. Patient presents the ER today with complaint of worsening burning pain in her bilateral lower extremities. Burning pain from the soles of her feet up her legs. She also noted that the leg seemed to be red and shiny. This is been chronic, she is talked to her building services supervisor as well as her primary care about this. She is on [place] and gabapentin. Patient states that she couldnt sleep tonight because of the pain. - Related Data Home Medications Medication Instructions Recorded Confirmed cloNIDine HCL [Catapres] 0.3 mg PO TID@0530,1300,1900 12/16/16 04/19/21 INSULIN LISPRO (humaLOG) [humaLOG] 10 unit SQ AC-TID 07/12/18 04/19/21 hydrALAZINE HCL [Apresoline] 100 mg PO QID 12/14/18 04/19/21 HYDROcodone/APAP 7.5-325MG [[place] 1 tab PO Q8H 11/08/19 04/19/21 7.5-325] Albuterol Sulfate [Proair Hfa] 2 puff INHALATION RT-Q6H PRN 01/28/20 04/19/21 traMADol HCL [Ultram] 50 mg PO Q12H PRN 05/13/20 04/19/21 Ascorbic Acid [Vitamin C] 500 mg PO DAILY@0530 07/09/20 04/19/21 Metoprolol Tartrate [Lopressor] 50 mg PO TID 07/09/20 04/19/21 Gabapentin [Neurontin] 100 mg PO TID 08/02/20 04/19/21 Omeprazole 20 mg PO BID 08/02/20 04/19/21 diazePAM [Valium] 5 mg PO BID 08/13/20 04/19/21 Sodium Polystyrene Sulfonate 20 gm PO SUMOWEFR 09/06/20 04/19/21 [Kayexalate] Sevelamer [Renvela] 2,400 mg PO AC-TID 12/01/20 04/19/21 Sevelamer [Renvela] 800 mg PO DAILY PRN 12/01/20 04/19/21 INSULIN LISPRO (humaLOG) [humaLOG] See Protocol SQ AC-TID 01/22/21 04/19/21 Cinacalcet [Sensipar] 30 mg PO DAILY 04/11/21 04/19/21 Fexofenadine HCl [Candice Allergy] 180 mg PO DAILY 04/11/21 04/19/21 Insulin Glargine,Hum.rec.anlog 45 unit SQ HS 04/11/21 04/19/21 [Lantus Solostar Pen] Zinc 50 mg PO DAILY 04/11/21 04/19/21 Previous Rx's Medication Instructions Recorded Darbepoetin Drew [Aranesp] 40 mcg SQ Q7D syringe 12/07/20 rOPINIRole HCL [Requip] 1 mg PO TID tab 12/07/20 Bumetanide [BUMEX] 1 mg PO BID@0900,1600 30 Days #60 01/25/21 tab Cephalexin [Keflex] 500 mg PO Q6HR 7 Days #28 cap 04/23/21 Allergies Allergy/AdvReac Type Severity Reaction Status Date / Time Anesthetics - Amide Type - Allergy cardiac Verified 06/17/21 00:42 Select A arrest Anesthetics - Andree Type- Allergy cardiac Verified 06/17/21 00:42 Parabens arrest hydromorphone [From Dilaudid] Allergy Swelling Verified 06/17/21 00:42 ciprofloxacin [From Cipro] AdvReac AFFECTED Verified 06/17/21 00:42 EYESIGHT ciprofloxacin HCl AdvReac AFFECTED Verified 06/17/21 00:42 [From Cipro] EYESIGHT Iodinated Contrast Media AdvReac RENAL Verified 06/17/21 00:42 FAILURE Review of Systems ROS Statement: Those systems with pertinent positive or pertinent negative responses have been documented in the HPI. ROS Other: All systems not noted in ROS Statement are negative. Past Medical History Past Medical History: Blood Disorder, Coronary Artery Disease (CAD), Chest Pain / Angina, Heart Failure, Diabetes Mellitus, Dialysis, Hyperlipidemia, Hypertension, Liver Disease, Pneumonia, Renal Disease Additional Past Medical History / Comment(s): Pt recently admitted to [facility] on 08/02/20 with fluid overload/swelling. Other hx: MRSA infection in blood with IV ABX while at dialysis until 09/06/20, bilateral cataracts, recently diagnosed with bilateral retinal hemorrhages, hypertriglyceridemia-induced acute pancreatitis, THEN necrotizing pancreatitis. hemodialysis for acute kidney injury 2 months in 2009 after pancreatic OR, 11/2015 diagnosed w/ chronic kidney disease-hemodialysis /-last hemodialysis 06/02/19, IDDM type II, past DKA, UTI, chronic anemia, frequent body cramping, occasional low back pain, carter's palsy x2, past L leg fx, possible liver disease-recent liver bx-results unknown per pt (2009). History of Any Multi-Drug Resistant Organisms: MRSA Date of last positivie culture/infection: 08-02-20 MDRO Source:: Blood Past Surgical History: Cardiac Valve Replacement, Orthopedic Surgery, Uterine Ablation Additional Past Surgical History / Comment(s): 08/26/17 colonoscopy with polypectomy/bx, pancreatic resection at [facility] 2009, bone marrow biopsies X2-last one 05/19/16,. dialysis chest port x 2 with removals, Left arm shunt placement for dialysis - December 2015 and a revision done with shunt. Left forearm Vein Revision - October 2019, liver biopsy.Lt arm fistula repair november 2020.heart mitral valve repaced 2019 at [facility],. chest chest wall port,. left upper arm fistula 2020,. paracentesis procedures Past Anesthesia/Blood Transfusion Reactions: No Reported Reaction Additional Past Anesthesia/Blood Transfusion Reaction / Comment(s): Pt has received blood transfusions without reaction. Past Psychological History: No Psychological Hx Reported Smoking Status: Never smoker Past Alcohol Use History: None Reported Past Drug Use History: None Reported - Past Family History Brother(s) Family Medical History: No Reported History Mother Family Medical History: Cancer Additional Family Medical History / Comment(s): throat Father Family Medical History: Hypertension Additional Family Medical History / Comment(s): alcoholism General Exam - General Exam Comments Initial Comments: Physical Exam GENERAL: Chronically ill appearing HENT: Normocephalic, Atraumatic. EYES: PERRL, EOMI PULMONARY: Unlabored respirations. CARDIOVASCULAR: RRR ABDOMEN: Distended, non-tender, fluid wave noted SKIN: Lower extremities with evidence of chronic vascular disease : Deferred NEUROLOGIC: Alert and oriented Normal speech MUSCULOSKELETAL: Moving all extremities with no apparent injury PSYCHIATRIC: No SI/HI Course Vital Signs 06/17/21 06/17/21 00:33 03:41 Temperature 98.2 F Pulse Rate 79 59 L Respiratory 16 18 Rate Blood Pressure 195/81 150/89 O2 Sat by Pulse 96 95 Oximetry Medical Decision Making - Medical Decision Making She was seen and evaluated history is obtained from patient, patient with chronic lower extremity pain secondary to diabetic neuropathy with worsening pain not responding to her [place] at home. Patient was treated with IM morphine. Patient was advised to further follow-up with primary care for pain management. Disposition Clinical Impression: Neuropathy Disposition: HOME SELF-CARE Condition: Stable Instructions (If sedation given, give patient instructions): Diabetic Peripheral Neuropathy (ED) Is patient prescribed a controlled substance at d/c from ED?: No Referrals: David Bragg MD [Primary Care Provider] - 1-2 days
[2021-06-17 03:44] VITALS: BP 150/89; PULSE 59; RESP 18
== END 2021-06-17 04:03 | disposition home or self-care (01) ==
LOC: EC 00:28
DX: G57.93 Unspecified mononeuropathy of bilateral lower limbs (principal); I25.10 Atherosclerotic heart disease of native coronary artery without angina pectoris; I13.0 Hypertensive heart and chronic kidney disease with heart failure and stage 1 through stage 4 chronic kidney disease, or unspecified chronic kidney disease; I50.9 Heart failure, unspecified; E11.22 Type 2 diabetes mellitus with diabetic chronic kidney disease; N18.9 Chronic kidney disease, unspecified; E78.5 Hyperlipidemia, unspecified; Z79.4 Long term (current) use of insulin; Z88.5 Allergy status to narcotic agent; Z88.1 Allergy status to other antibiotic agents; Z87.440 Personal history of urinary (tract) infections
CPT/HCPCS: 99283; 96372; J2270

== ENCOUNTER 2021-07-09 08:29 | Day surgery (SDC) | payer OTHER ==
[2021-07-08 08:46] VITALS: BMI 29.4
[2021-07-09 08:51] LABS: Glucose,Whole Blood 102 mg/dL (75-99)
[2021-07-09] MEDS ORDERED: SODIUM CHLORIDE 0.9% 500 ML 500 ML IV ONE (08:56)
[2021-07-09 09:01] VITALS: BP 214/97; PULSE 73; RESP 16; TEMP 97.6
[2021-07-09] MEDS ORDERED: LIDOCAINE 1% INJ 10MG/ML (20 ML MDV) ONE (09:19)
[2021-07-09] MEDS ORDERED: LIDOCAINE 1% INJ 10MG/ML (20 ML MDV) SQ ONE (09:45)
[2021-07-09] MEDS ORDERED: MIDAZOLAM 2 MG/2 ML VIAL IV ONE (09:45)
[2021-07-09] MEDS ORDERED: IOPAMIDOL-370 100ML BTL INJ ONE (10:17)
--- NOTE | 2021-07-09 10:32 | P.OP ---
Date of Procedure: 07/09/21 Description of Procedure: Date: 07/09/2021 Preoperative diagnosis: End-stage renal disease on hemodialysis, left upper extremity outflow stenosis Postoperative diagnosis: Same Procedure: Left Upper extremity fistulogram with ultrasound guided access, percutaneous transluminal balloon angioplasty of the outflow stenosis with a 7 x 40 mm balloon Surgeon: Huy Rey DO Anesthesia : Local Estimated blood loss: Minimal Complications: None Condition: Stable Indications: 56-year-old female with history of hemodialysis via left upper extremity arteriovenous fistula presents to the [facility] Experience [facility] for fistulogram and possible balloon angioplasty of outflow stenosis seen on ultrasound. She states they're having issues with her flows as well. Operative narrative: After written informed consent was obtained the patient all risks benefits competitions were described the patient is brought to the User Experience [facility] and laid in a supine position with their left arm outstretched on an armboard. The area of the arm was prepped and draped in usual sterile fashion. Utilizing local anesthetic the fistula was accessed under ultrasound guidance and a 6-Austrian sheath was placed. Fistulogram was then obtained demonstrating stenosis noted at the anastomosis junction at the axillary vein measuring roughly 70%. Central venogram demonstrated no evidence of stenosis. Guidewire was placed across the lesion and balloon angioplasty was performed with a 7 x 40 mm balloon with good improvement and residual stenosis of roughly 10%. While balloon was up fascia gram was obtained demonstrating the inflow which was widely patent. All catheters and guidewires were removed and suture was placed in the sheath was removed in normal fashion. Patient all procedure well and was sent to recovery. Plan - Discharge Summary Discharge Rx Participant: No New Discharge Prescriptions: No Action cloNIDine HCL [Catapres] 0.3 mg PO TID INSULIN LISPRO (humaLOG) [humaLOG] 15 unit SQ AC-TID hydrALAZINE HCL [Apresoline] 100 mg PO QID PRN PRN Reason: Blood Pressure HYDROcodone/APAP 7.5-325MG [[place] 7.5-325] 1 tab PO Q8H PRN PRN Reason: Pain traMADol HCL [Ultram] 50 mg PO Q12H PRN PRN Reason: Pain Metoprolol Tartrate [Lopressor] 50 mg PO TID Omeprazole 20 mg PO BID Sevelamer [Renvela] 800 mg PO DAILY PRN PRN Reason: snacks Sevelamer [Renvela] 3,200 mg PO AC-TID Lidocaine-Prilocaine Cream [Emla Cream 2.5%/2.5%] 1 applic TOPICAL DIRECTED PRN PRN Reason: DIALYSIS Ondansetron [Zofran] 4 mg PO TID PRN PRN Reason: Nausea rOPINIRole HCL [Requip] 1 mg PO BID Sodium Zirconium Cyclosilicate [Lokelma] 10 gm PO SUMOWEFR Insulin Glargine,Hum.rec.anlog [Lantus Solostar Pen] 40 unit SQ HS #0 Bumetanide [BUMEX] 1 mg PO BID Mouthwash (Unknown Name) 1 dose PO DIRECTED Melatonin 1 mg PO HS PRN #30 tablet PRN Reason: Insomnia bisacodyL [Dulcolax] 10 mg PO DAILY Gabapentin [Neurontin] 200 mg PO HS Gabapentin [Neurontin] 100 mg PO BID Discharge Medication List cloNIDine HCL [Catapres] 0.3 mg PO TID 12/16/16 [History] INSULIN LISPRO (humaLOG) [humaLOG] 15 unit SQ AC-TID 07/12/18 [History] hydrALAZINE HCL [Apresoline] 100 mg PO QID PRN 12/14/18 [History] HYDROcodone/APAP 7.5-325MG [[place] 7.5-325] 1 tab PO Q8H PRN 11/08/19 [History] traMADol HCL [Ultram] 50 mg PO Q12H PRN 05/13/20 [History] Metoprolol Tartrate [Lopressor] 50 mg PO TID 07/09/20 [History] Omeprazole 20 mg PO BID 08/02/20 [History] Sevelamer [Renvela] 3,200 mg PO AC-TID 12/01/20 [History] Sevelamer [Renvela] 800 mg PO DAILY PRN 12/01/20 [History] Lidocaine-Prilocaine Cream [Emla Cream 2.5%/2.5%] 1 applic TOPICAL DIRECTED PRN 06/18/21 [History] Ondansetron [Zofran] 4 mg PO TID PRN 06/18/21 [History] Sodium Zirconium Cyclosilicate [Lokelma] 10 gm PO SUMOWEFR 06/18/21 [History] rOPINIRole HCL [Requip] 1 mg PO BID 06/18/21 [History] Insulin Glargine,Hum.rec.anlog [Lantus Solostar Pen] 40 unit SQ HS #0 06/20/21 [Rx] Melatonin 1 mg PO HS PRN #30 tablet 06/20/21 [Rx] Bumetanide [BUMEX] 1 mg PO BID 07/08/21 [History] Gabapentin [Neurontin] 100 mg PO BID 07/08/21 [History] Gabapentin [Neurontin] 200 mg PO HS 07/08/21 [History] Mouthwash (Unknown Name) 1 dose PO DIRECTED 07/08/21 [History] bisacodyL [Dulcolax] 10 mg PO DAILY 07/08/21 [History]
--- NOTE | 2021-07-09 11:24 | IR ---
EXAMINATION TYPE: IR fistula/abscess/sinus tract DATE OF EXAM: 07/09/2021 CLINICAL HISTORY: Failed dialysis. TECHNIQUE: Fluoroscopy. COMPARISON: None. FINDINGS: Fluoroscopic guidance was provided during left upper extremity fistulogram procedure perfo rmed by Dr. Rey. A total of 4.2 minutes of fluoroscopic time was utilized during the procedure a nd 318 spot images are acquired. Please refer to procedure note for further details if necessary. IMPRESSION: As Above.
== END 2021-07-09 15:37 | disposition home or self-care (01) ==
LOC: CATHCVL 08:29
PROVIDERS: ATTEND Surgery
DX: T82.858A Stenosis of other vascular prosthetic devices, implants and grafts, initial encounter (principal); I12.0 Hypertensive chronic kidney disease with stage 5 chronic kidney disease or end stage renal disease; E11.22 Type 2 diabetes mellitus with diabetic chronic kidney disease; N18.6 End stage renal disease; Z99.2 Dependence on renal dialysis; Z20.822 Contact with and (suspected) exposure to COVID-19; E78.00 Pure hypercholesterolemia, unspecified; Z98.890 Other specified postprocedural states; Z81.1 Family history of alcohol abuse and dependence; Z82.49 Family history of ischemic heart disease and other diseases of the circulatory system; Z83.3 Family history of diabetes mellitus; Z80.9 Family history of malignant neoplasm, unspecified; Z79.4 Long term (current) use of insulin; Z79.891 Long term (current) use of opiate analgesic; Z79.899 Other long term (current) drug therapy; Z88.1 Allergy status to other antibiotic agents; Z91.041 Radiographic dye allergy status
CPT/HCPCS: 76080; 87635; C1894; C1769 ×4; C1725 ×2; J2250; J2001; Q9967

== ENCOUNTER → 2021-07-24 | Outpatient (CLI) | payer OTHER ==
--- NOTE | 2021-07-25 14:41 | US ---
EXAMINATION TYPE: US arterial LE single level DATE OF EXAM: 07/24/2021 1:56 PM CLINICAL HISTORY: M79.672 PAIN LT FOOT,E11.42 TYPE 2 DM. History of hypertension. Bilateral foot redn ess. Doppler Waveforms: Right: Biphasic Left: Biphasic Pulse Volume Recording: Not performed Ankle-Brachial Indices: Right: Not calculated Left: Not calculated Toe Brachial Indices: Right: 0.69 Left: 0.71 IMPRESSION: Normal bilateral toe pressures indices.
== END | disposition home or self-care (01) ==
LOC: RADUSWWP 13:07
PROVIDERS: ATTEND Podiatrist
DX: M79.672 Pain in left foot (principal); E11.51 Type 2 diabetes mellitus with diabetic peripheral angiopathy without gangrene; E11.42 Type 2 diabetes mellitus with diabetic polyneuropathy
CPT/HCPCS: 93922

== ENCOUNTER 2021-07-29 15:51 | Inpatient (IN) | payer OTHER ==
--- NOTE | 2021-07-29 18:33 | ED ---
General Adult HPI - General Chief complaint: Recheck/Abnormal Lab/Rx Stated complaint: Need dialysis/SOB Time Seen by Provider: 07/29/21 18:02 Source: patient, RN notes reviewed Mode of arrival: ambulatory Limitations: no limitations - History of Present Illness Initial comments: 56 year old female presents to the Emergency Department for hospital admission as per her PCP. Patient states she is a renal dialysis patient and is needing a paracentesis. States she has not missed any of her dialysis sessions and has limited herself to 4 cups of water daily. States she has been taking her medications as prescribed. Reports recent evaluation for bilateral leg pain which continues to be an ongoing issue. States the reddish-brown discoloratin has been an ongoing issue and her legs ache constantly. Reports occasional shortness of breath. Denies fever, chills, headache, dizziness, chest pain, cough, nausea, vomiting, diarrhea, constipation, or dysuria; states she does produce a small amount of urine. - Related Data Home Medications Medication Instructions Recorded Confirmed cloNIDine HCL [Catapres] 0.3 mg PO TID 12/16/16 07/29/21 INSULIN LISPRO (humaLOG) [humaLOG] 15 unit SQ AC-TID 07/12/18 07/29/21 hydrALAZINE HCL [Apresoline] 100 mg PO QID PRN 12/14/18 07/29/21 HYDROcodone/APAP 7.5-325MG [[place] 1 tab PO Q8H PRN 11/08/19 07/29/21 7.5-325] traMADol HCL [Ultram] 50 mg PO BID PRN 05/13/20 07/29/21 Metoprolol Tartrate [Lopressor] 50 mg PO TID 07/09/20 07/29/21 Omeprazole 20 mg PO BID 08/02/20 07/29/21 Sevelamer [Renvela] 3,200 mg PO AC-TID 12/01/20 07/29/21 Sevelamer [Renvela] 800 - 1,600 mg PO DAILY PRN 12/01/20 07/29/21 Lidocaine-Prilocaine Cream [Emla 1 applic TOPICAL DIRECTED PRN 06/18/21 07/29/21 Cream 2.5%/2.5%] Ondansetron [Zofran] 4 mg PO TID PRN 06/18/21 07/29/21 Sodium Zirconium Cyclosilicate 10 gm PO SUMOWEFR 06/18/21 07/29/21 [Lokelma] rOPINIRole HCL [Requip] 1 mg PO BID 06/18/21 07/29/21 Bumetanide [BUMEX] 1 mg PO BID@0900,1400 07/08/21 07/29/21 Gabapentin [Neurontin] 100 mg PO BID@0800,1200 07/08/21 07/29/21 Gabapentin [Neurontin] 200 mg PO HS 07/08/21 07/29/21 bisacodyL [Dulcolax] 10 mg PO HS 07/08/21 07/29/21 Cinacalcet [Sensipar] 30 mg PO TUTHSA 07/29/21 07/29/21 Melatonin 3 mg PO HS PRN 07/29/21 07/29/21 Previous Rx's Medication Instructions Recorded Insulin Glargine,Hum.rec.anlog 40 unit SQ HS #0 06/20/21 [Lantus Solostar Pen] Allergies Allergy/AdvReac Type Severity Reaction Status Date / Time Anesthetics - Amide Type - Allergy cardiac Verified 07/29/21 20:20 Select A arrest Anesthetics - Andree Type- Allergy cardiac Verified 07/29/21 20:20 Parabens arrest hydromorphone [From Dilaudid] Allergy Swelling Verified 07/29/21 20:20 ciprofloxacin [From Cipro] AdvReac AFFECTED Verified 07/29/21 20:20 EYESIGHT ciprofloxacin HCl AdvReac AFFECTED Verified 07/29/21 20:20 [From Cipro] EYESIGHT Iodinated Contrast Media AdvReac RENAL Verified 07/29/21 20:20 FAILURE Review of Systems ROS Statement: Those systems with pertinent positive or pertinent negative responses have been documented in the HPI. ROS Other: All systems not noted in ROS Statement are negative. 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 History of Any Multi-Drug Resistant Organisms: MRSA Date of last positivie culture/infection: 08-02-20 MDRO Source:: Blood Past Surgical History: Cardiac Valve Replacement, Orthopedic Surgery, Uterine Ablation Additional Past Surgical History / Comment(s): Colonoscopy with polypectomy/biopsy, pancreatic resection at [facility] 2009, bone marrow biopsies X2, dialysis chest port X3 with removals, left arm shunt placement for dialysis and a revision done with shunt. Left forearm Vein Revision, liver biopsy, left arm fistula repair, [facility] left upper arm fistula 2020. paracentesis procedures, bilateral cataract removals/lens implants, then laser eye surgery to remove film on lenses, dental surgery. Past Anesthesia/Blood Transfusion Reactions: No Reported Reaction Additional Past Anesthesia/Blood Transfusion Reaction / Comment(s): Pt has received blood transfusions without reaction. Past Psychological History: No Psychological Hx Reported Smoking Status: Never smoker Past Alcohol Use History: None Reported Past Drug Use History: None Reported - Past Family History Brother(s) Family Medical History: No Reported History Mother Family Medical History: Cancer, Congestive Heart Failure (CHF), Diabetes Mellitus Additional Family Medical History / Comment(s): Throat cancer. Father Family Medical History: Hypertension Additional Family Medical History / Comment(s): Alcoholism. General Exam Limitations: no limitations General appearance: alert, in no apparent distress (Well-developed, well- nourished female in no acute distress. Initial temperature 97.9, pulse 71, respirations 16, blood pressure 196/92, pulse ox 99% on room air.) Eye exam: Present: normal appearance, PERRL, EOMI. Absent: scleral icterus, conjunctival injection Respiratory exam: Present: normal lung sounds bilaterally. Absent: respiratory distress, wheezes, rales, rhonchi, stridor, chest wall tenderness Cardiovascular Exam: Present: regular rate, normal rhythm, systolic murmur GI/Abdominal exam: Present: distended (significant abdominal distention; minimal discomfort upon palpation), normal bowel sounds. Absent: tenderness, guarding, rebound, rigid Left Upper Arm exam: Present: other (AV fistula present; +thrill) Left Knee exam: Present: normal inspection, full ROM. Absent: tenderness, swelling Lower Leg exam: Present: full ROM, tenderness (Mild tenderness upon palpation diffusely throughout the lower leg, ankle, and foot), swelling (1+ pitting edema). Absent: normal inspection (Lower extremity is reddishbrown in appearance), Homans' sign Ankle exam: Present: full ROM, tenderness, swelling. Absent: normal inspection Foot/Toe exam: Present: full ROM, tenderness, swelling. Absent: normal inspection Neurovascular tendon exam: Present: no vascular compromise (+1 pedal and posttibial pulses palpable). Absent: sensory deficit, decreased fine/light touch Right Knee exam: Present: normal inspection, full ROM. Absent: tenderness, swelling Lower Leg exam: Present: full ROM, tenderness (Diffuse tenderness upon palpation of the entire right lower extremity; no focal area of discomfort), swelling (+1 pitting edema). Absent: normal inspection (Brownishreddish discoloration to the right lower extremity, ankle and foot) Ankle exam: Present: full ROM, tenderness, swelling. Absent: normal inspection Foot/Toe exam: Present: full ROM, tenderness, swelling. Absent: normal inspection Neurovascular tendon exam: Present: no vascular compromise (+2 pedal and posttibial pulses palpable). Absent: sensory deficit Neurological exam: Present: alert Psychiatric exam: Present: normal affect, normal mood Skin exam: Present: warm, dry, intact Course Vital Signs 07/29/21 07/29/21 07/30/21 16:17 18:14 00:22 Temperature 97.9 F Pulse Rate 71 67 56 L Respiratory 16 20 20 Rate Blood Pressure 196/92 175/88 157/77 O2 Sat by Pulse 99 99 99 Oximetry - Reevaluation(s) Reevaluation #1: 07/29/21 20:00 Notified of critical potassium value. Will discuss appropriate course of treatment with my attending. Cardiac monitoring ordered. 07/29/21 21:00 Kayexalate and calcium gluconate ordered for hyperkalemia. Will continue to monitor and work on hospital admission. Patient is sitting up at the bedside drawing. She is not experiencing any shortness of breath or difficulty breathing. 07/29/21 22:00 Patient requesting pain medication for her leg discomfort. States she has taken [place] at home with no improvement. Patient does have an ALLERGY to Dilaudid, but is able to tolerate morphine. Did discuss concerns with lower extremity edema and legs independent position. Encouraged patient to elevate the lower extremities by reclining in the back periodically. Patient is agreeable. Medical Decision Making - Medical Decision Making This is a 56-year-old female with a past medical history of COPD, CHF, diabetes mellitus, renal dialysis, hypertension, and liver disease who presents to the emergency department for evaluation of multiple complaints. Patient states her PCP sent her in for dialysis and paracentesis. Upon exam, patient is noted to b e alert, oriented, resting comfortably, with no shortness of breath or difficulty breathing. Her abdomen is protuberant and quite firm upon palpation. Patient states she is tolerating oral intake without difficulty and has minimized her intake of fluids. States she has been compliant with her home medication regimen and dialysis plan of care. Patient complained of bilateral lower extremity pain with trace pitting edema and brownishreddish discoloration to the lower extremities. She recently had a doppler study done showing normal bilateral toe pressure indices as ordered by podiatry. While present in the emergency department, chest x-ray was obtained and was unchanged from baseline showing cardiomegaly. Laboratory studies were reviewed and are compatible with patient's known renal disease. Her potassium is 7.8, BUN 61, creatinine 8.44, GFR 5. Kayexalate and calcium gluconate given for hyperkalemia. Patient does have an elevated d-dimer of 2.83. This is likely due to her acute on chronic renal failure; CTA to rule out PE could not be performed due to diminished renal function. Additionally, patient does demonstrate evidence of UTI with large leukocyte Estrase, urine RBCs 30, urine wbc's > 182, and presence of urine bacteria. UTI was treated with a dose of Rocephin in the emergency department. Patient will be admitted to the hospital and consult placed to nephrology for dialysis and IR for paracentesis. I did speak with Dr. Bragg, patient's PCP who agrees to accept this admission. - Lab Data Result diagrams: 07/29/21 18:58 07/29/21 18:58 Lab Results 07/29/21 07/29/21 07/29/21 Range/Units 18:58 18:58 18:58 WBC 4.2 (3.8-10.6) k/uL RBC 3.65 L (3.80-5.40) m/uL Hgb 11.4 (11.4-16.0) gm/dL Hct 35.8 (34.0-46.0) % MCV 98.1 (80.0-100.0) fL MCH 31.3 (25.0-35.0) pg MCHC 31.9 (31.0-37.0) g/dL RDW 17.1 H (11.5-15.5) % Plt Count 122 L (150-450) k/uL MPV 8.8 Neutrophils % 78 % Lymphocytes % 13 % Monocytes % 6 % Eosinophils % 2 % Basophils % 1 % Neutrophils # 3.3 (1.3-7.7) k/uL Lymphocytes # 0.5 L (1.0-4.8) k/uL Monocytes # 0.2 (0-1.0) k/uL Eosinophils # 0.1 (0-0.7) k/uL Basophils # 0.0 (0-0.2) k/uL Hypochromasia Moderate Anisocytosis Slight Macrocytosis Slight D-Dimer 2.83 H (<0.60) mg/L FEU Sodium 135 L (137-145) mmol/L Potassium 7.8 H* (3.5-5.1) mmol/L Chloride 100 (98-107) mmol/L Carbon Dioxide 23 (22-30) mmol/L Anion Gap 12 mmol/L BUN 61 H (7-17) mg/dL Creatinine 8.44 H* (0.52-1.04) mg/dL Est GFR (CKD-EPI)AfAm 6 (>60 ml/min/1.73 sqM) Est GFR (CKD-EPI)NonAf 5 (>60 ml/min/1.73 sqM) Glucose 102 H (74-99) mg/dL Plasma Lactic Acid Micha (0.7-2.0) mmol/L Calcium 8.6 (8.4-10.2) mg/dL Total Bilirubin 0.8 (0.2-1.3) mg/dL AST 19 (14-36) U/L ALT 8 (4-34) U/L Alkaline Phosphatase 115 (38-126) U/L Troponin I (0.000-0.034) ng/mL NT-Pro-B Natriuret Pep pg/mL Total Protein 6.7 (6.3-8.2) g/dL Albumin 4.1 (3.5-5.0) g/dL Urine Color Urine Appearance (Clear) Urine pH (5.0-8.0) Ur Specific [place] (1.001-1.035) Urine Protein (Negative) Urine Glucose (UA) (Negative) Urine Ketones (Negative) Urine Blood (Negative) Urine Nitrite (Negative) Urine Bilirubin (Negative) Urine Urobilinogen (<2.0) mg/dL Ur Leukocyte Esterase (Negative) Urine RBC (0-5) /hpf Urine WBC (0-5) /hpf Ur Squamous Epith Cells (0-4) /hpf Urine Bacteria (None) /hpf Urine Mucus (None) /hpf 07/29/21 07/29/21 07/29/21 Range/Units 18:58 18:58 18:58 WBC (3.8-10.6) k/uL RBC (3.80-5.40) m/uL Hgb (11.4-16.0) gm/dL Hct (34.0-46.0) % MCV (80.0-100.0) fL MCH (25.0-35.0) pg MCHC (31.0-37.0) g/dL RDW (11.5-15.5) % Plt Count (150-450) k/uL MPV Neutrophils % % Lymphocytes % % Monocytes % % Eosinophils % % Basophils % % Neutrophils # (1.3-7.7) k/uL Lymphocytes # (1.0-4.8) k/uL Monocytes # (0-1.0) k/uL Eosinophils # (0-0.7) k/uL Basophils # (0-0.2) k/uL Hypochromasia Anisocytosis Macrocytosis D-Dimer (<0.60) mg/L FEU Sodium (137-145) mmol/L Potassium (3.5-5.1) mmol/L Chloride (98-107) mmol/L Carbon Dioxide (22-30) mmol/L Anion Gap mmol/L BUN (7-17) mg/dL Creatinine (0.52-1.04) mg/dL Est GFR (CKD-EPI)AfAm (>60 ml/min/1.73 sqM) Est GFR (CKD-EPI)NonAf (>60 ml/min/1.73 sqM) Glucose (74-99) mg/dL Plasma Lactic Acid Micha 1.1 (0.7-2.0) mmol/L Calcium (8.4-10.2) mg/dL Total Bilirubin (0.2-1.3) mg/dL AST (14-36) U/L ALT (4-34) U/L Alkaline Phosphatase (38-126) U/L Troponin I 0.012 (0.000-0.034) ng/mL NT-Pro-B Natriuret Pep 62823 pg/mL Total Protein (6.3-8.2) g/dL Albumin (3.5-5.0) g/dL Urine Color Urine Appearance (Clear) Urine pH (5.0-8.0) Ur Specific [place] (1.001-1.035) Urine Protein (Negative) Urine Glucose (UA) (Negative) Urine Ketones (Negative) Urine Blood (Negative) Urine Nitrite (Negative) Urine Bilirubin (Negative) Urine Urobilinogen (<2.0) mg/dL Ur Leukocyte Esterase (Negative) Urine RBC (0-5) /hpf Urine WBC (0-5) /hpf Ur Squamous Epith Cells (0-4) /hpf Urine Bacteria (None) /hpf Urine Mucus (None) /hpf 07/29/21 Range/Units 19:24 WBC (3.8-10.6) k/uL RBC (3.80-5.40) m/uL Hgb (11.4-16.0) gm/dL Hct (34.0-46.0) % MCV (80.0-100.0) fL MCH (25.0-35.0) pg MCHC (31.0-37.0) g/dL RDW (11.5-15.5) % Plt Count (150-450) k/uL MPV Neutrophils % % Lymphocytes % % Monocytes % % Eosinophils % % Basophils % % Neutrophils # (1.3-7.7) k/uL Lymphocytes # (1.0-4.8) k/uL Monocytes # (0-1.0) k/uL Eosinophils # (0-0.7) k/uL Basophils # (0-0.2) k/uL Hypochromasia Anisocytosis Macrocytosis D-Dimer (<0.60) mg/L FEU Sodium (137-145) mmol/L Potassium (3.5-5.1) mmol/L Chloride (98-107) mmol/L Carbon Dioxide (22-30) mmol/L Anion Gap mmol/L BUN (7-17) mg/dL Creatinine (0.52-1.04) mg/dL Est GFR (CKD-EPI)AfAm (>60 ml/min/1.73 sqM) Est GFR (CKD-EPI)NonAf (>60 ml/min/1.73 sqM) Glucose (74-99) mg/dL Plasma Lactic Acid Micha (0.7-2.0) mmol/L Calcium (8.4-10.2) mg/dL Total Bilirubin (0.2-1.3) mg/dL AST (14-36) U/L ALT (4-34) U/L Alkaline Phosphatase (38-126) U/L Troponin I (0.000-0.034) ng/mL NT-Pro-B Natriuret Pep pg/mL Total Protein (6.3-8.2) g/dL Albumin (3.5-5.0) g/dL Urine Color Yellow Urine Appearance Cloudy H (Clear) Urine pH 8.5 H (5.0-8.0) Ur Specific [place] 1.010 (1.001-1.035) Urine Protein 2+ H (Negative) Urine Glucose (UA) 1+ H (Negative) Urine Ketones Negative (Negative) Urine Blood Moderate H (Negative) Urine Nitrite Negative (Negative) Urine Bilirubin Negative (Negative) Urine Urobilinogen <2.0 (<2.0) mg/dL Ur Leukocyte Esterase Large H (Negative) Urine RBC 30 H (0-5) /hpf Urine WBC >182 H (0-5) /hpf Ur Squamous Epith Cells 26 H (0-4) /hpf Urine Bacteria Many H (None) /hpf Urine Mucus Rare H (None) /hpf - EKG Data Rate: normal EKG Comments: EKG was obtained at 1905 showing atrial fibrillation with right bundle branch block. Ventricular rate 61, LA interval indeterminate, QRS duration 142, QT/QTc 466/469. Interpretation abnormal ECG. P waves to appear to be present though quite small; EKG appears to be sinus arrhythmia. EKG is compared to previous EKG obtained 282. - Radiology Data Radiology results: report reviewed, image reviewed Two-view chest x-ray was obtained. Report was reviewed in its entirety. Impression per Dr. Bella as no acute cardiopulmonary disease/process. Similar cardiomegaly. Disposition Clinical Impression: Renal failure (ARF), acute on chronic, UTI (urinary tract infection), Hyperkalemia, Ascites Disposition: ADMITTED IP TO THIS HOSP Condition: Serious Decision Date: 07/30/21 Decision Time: 00:09
[2021-07-29 19:06] LABS: Anisocytosis Slight; Basophils % (A) 1 %; Eosinophils # (A) 0.1 k/uL (0-0.7); Eosinophils % (A) 2 %; HCT 35.8 % (34.0-46.0); HGB 11.4 gm/dL (11.4-16.0); Hypochromasia Moderate; Lymphocytes # (A) 0.5 k/uL (1.0-4.8); Lymphocytes % (A) 13 %; MCH 31.3 pg (25.0-35.0); MCHC 31.9 g/dL (31.0-37.0); MCV 98.1 fL (80.0-100.0); Macrocytosis Slight; Mean Platelet Volume 8.8; Monocytes # (A) 0.2 k/uL (0-1.0); Monocytes % (A) 6 %; Neutrophils # (A) 3.3 k/uL (1.3-7.7); Neutrophils % (A) 78 %; Platelet Count 122 k/uL (150-450); RBC 3.65 m/uL (3.80-5.40); RDW 17.1 % (11.5-15.5); WBC 4.2 k/uL (3.8-10.6)
[2021-07-29 19:15] LABS: Albumin 4.1 g/dL (3.5-5.0); Calcium 8.6 mg/dL (8.4-10.2); Total Bilirubin 0.8 mg/dL (0.2-1.3); Total Protein 6.7 g/dL (6.3-8.2)
[2021-07-29 19:24] LABS: Potassium 7.8 mmol/L (3.5-5.1)
[2021-07-29 19:44] LABS: Appearance,Urine Cloudy (Clear); Bacteria,Urine Many /hpf; Bilirubin,Urine Negative (Negative); Blood,Urine Moderate (Negative); Color,Urine Yellow; Glucose,Urine (UA) 1+ (Negative); Ketones,Urine Negative (Negative); Leukocyte Esterase,Urine Large (Negative); Mucus,Urine Rare /hpf; Nitrite,Urine Negative (Negative); PH, Urine 8.5 (5.0-8.0); Protein,Urine 2+ (Negative); RBC,Urine 30 /hpf (0-5); Squamous Epithelial Cell,Urine 26 /hpf (0-4); Urobilinogen,Urine <2.0 mg/dL (<2.0); WBC,Urine >182 /hpf (0-5)
--- NOTE | 2021-07-29 20:00 | XR ---
EXAMINATION TYPE: XR chest 2V DATE OF EXAM: 07/29/2021 7:39 PM COMPARISON:Multiple radiographs, with the most recent on 06/18/2021 TECHNIQUE: XR chest 2V Frontal and lateral views of the chest. CLINICAL INDICATION:Female, 56 years old with history of shortness of breath; FINDINGS: Lungs/Pleura: Low lung volumes are present. There is no evidence of pleural effusion, focal consolida tion, or pneumothorax. Pulmonary vascularity: Unremarkable. Heart/mediastinum: Cardiomediastinal silhouette is enlarged and stable. Mitral valve repair changes Musculoskeletal: No acute osseous pathology. Midline sternotomy wires are noted and stable. Other findings: Left shoulder stents noted. IMPRESSION: 1. No acute cardiopulmonary disease/process. 2. Similar cardiomegaly.
[2021-07-29] MEDS ORDERED: SODIUM POLYSTYRENE SULFONATE 15 GM/60 ML BOTTLE PO STA (20:20)
[2021-07-29] MEDS ORDERED: CALCIUM GLUCONATE IN NACL 1 GM in SALINE 1 100ML.BAG IVPB ONE (20:20)
[2021-07-29] MEDS ORDERED: MORPHINE SULFATE 2 MG/ML SYRINGE IVP ONE (21:33)
[2021-07-29] MEDS ORDERED: ONDANSETRON 4 MG/2 ML VIAL IVP STA (21:39)
[2021-07-30] MEDS ORDERED: NALOXONE 0.4 MG/ML 1 ML VIAL IV PRN
[2021-07-30] MEDS ORDERED: ACETAMINOPHEN TAB 325 MG TAB PO PRN
[2021-07-30] MEDS ORDERED: cefTRIAXone IN SWFI 1,000 MG/10 ML SYRINGE IVP STA (00:09)
[2021-07-30] MEDS: ONDANSETRON 4 MG/2 ML VIAL IVP PRN (00:43)
[2021-07-30 00:52] LABS: Glucose,Whole Blood 156 mg/dL (75-99)
[2021-07-30] MEDS: MORPHINE SULFATE 2 MG/ML SYRINGE IV PRN ×3 (03:31→22:15)
[2021-07-30 06:07] LABS: Glucose,Whole Blood 179 mg/dL (75-99)
[2021-07-30] MEDS: SEVELAMER 800 MG TAB PO SCH ×3 (07:04→18:23)
[2021-07-30] MEDS: INSULIN ASPART (NovoLOG) 100 UNIT/ML VIAL SQ SCH ×3 (07:05→17:00)
[2021-07-30 08:05] LABS: Anisocytosis Slight; Basophils % (A) 0 %; Eosinophils % (A) 1 %; HCT 35.5 % (34.0-46.0); HGB 11.2 gm/dL (11.4-16.0); Hypochromasia Moderate; Lymphocytes # (A) 0.5 k/uL (1.0-4.8); Lymphocytes % (A) 11 %; MCH 31.1 pg (25.0-35.0); MCHC 31.6 g/dL (31.0-37.0); MCV 98.4 fL (80.0-100.0); Macrocytosis Slight; Mean Platelet Volume 8.8; Monocytes # (A) 0.3 k/uL (0-1.0); Monocytes % (A) 7 %; Neutrophils # (A) 3.6 k/uL (1.3-7.7); Neutrophils % (A) 80 %; Platelet Count 134 k/uL (150-450); RBC 3.61 m/uL (3.80-5.40); RDW 17.3 % (11.5-15.5); WBC 4.5 k/uL (3.8-10.6)
[2021-07-30] MEDS: GABAPENTIN 100 MG CAP PO SCH ×3 (08:06→20:22)
[2021-07-30] MEDS: METOPROLOL TARTRATE 50 MG TAB PO SCH ×3 (08:06→22:15)
[2021-07-30] MEDS: cloNIDine HCL 0.1 MG TAB PO SCH ×3 (08:06→22:15)
[2021-07-30] MEDS: BUMETANIDE 1 MG TAB PO SCH ×2 (08:06→15:24)
[2021-07-30 08:22] LABS: Calcium 8.8 mg/dL (8.4-10.2); Magnesium 1.7 mg/dL (1.6-2.3); Total Bilirubin 0.8 mg/dL (0.2-1.3); Total Protein 6.7 g/dL (6.3-8.2)
[2021-07-30] MEDS ORDERED: FAMOTIDINE 20 MG TAB PO SCH (09:00)
[2021-07-30 09:19] LABS: INR 1.1 (<1.2); Prothrombin Time 11.4 sec (9.0-12.0)
--- NOTE | 2021-07-30 11:10 | P.NPCON ---
History of Present Illness - Reason for Consult end stage renal disease - History of Present Illness Patient is a 56-year-old female with end-stage renal disease on hemodialysis on a Thursday schedule at the [facility] dialysis unit. Patient is admitted to the hospital with complaints of increased shortness of breath and lower extremity swelling. Patient states that she has been above her dry weight for some time now and has not had increased ultrafiltration however upon discussion with the dialysis unit staff it appears that patient has had large gains and has always been getting maximum ultrafiltration on her treatments. Patient the has been offered extra treatments previously. Although not recently. Patient is in the process of changing dialysis facilities. No complaints of fever chills nausea or vomiting. No diarrhea. Patient also has underlying chronic liver disease with recurrent ascites and has had increased abdominal distention recently. She has had paracentesis p reviously in the hospital. 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 History of Any Multi-Drug Resistant Organisms: MRSA Date of last positivie culture/infection: 08-02-20 MDRO Source:: Blood Past Surgical History: Cardiac Valve Replacement, Orthopedic Surgery, Uterine Ablation Additional Past Surgical History / Comment(s): Colonoscopy with polypectomy/biopsy, pancreatic resection at [facility] 2009, bone marrow biopsies X2, dialysis chest port X3 with removals, left arm shunt placement for dialysis and a revision done with shunt. Left forearm Vein Revision, liver biopsy, left arm fistula repair, mitral valve repacement 2019 [facility],. left upper arm fistula 2020. paracentesis procedures, bilateral cataract removals/lens implants, then laser eye surgery to remove film on lenses, dental surgery. Past Anesthesia/Blood Transfusion Reactions: No Reported Reaction Additional Past Anesthesia/Blood Transfusion Reaction / Comment(s): Pt has received blood transfusions without reaction. Past Psychological History: No Psychological Hx Reported Smoking Status: Never smoker Past Alcohol Use History: None Reported Past Drug Use History: None Reported - Past Family History Brother(s) Family Medical History: No Reported History Mother Family Medical History: Cancer, Congestive Heart Failure (CHF), Diabetes Mellitus Additional Family Medical History / Comment(s): Throat cancer. Father Family Medical History: Hypertension Additional Family Medical History / Comment(s): Alcoholism. Medications and Allergies Home Medications Medication Instructions Recorded Confirmed Type cloNIDine HCL [Catapres] 0.3 mg PO TID 12/16/16 07/29/21 History INSULIN LISPRO (humaLOG) [humaLOG] 15 unit SQ AC-TID 07/12/18 07/29/21 History hydrALAZINE HCL [Apresoline] 100 mg PO QID PRN 12/14/18 07/29/21 History HYDROcodone/APAP 7.5-325MG [[place] 1 tab PO Q8H PRN 11/08/19 07/29/21 History 7.5-325] traMADol HCL [Ultram] 50 mg PO BID PRN 05/13/20 07/29/21 History Metoprolol Tartrate [Lopressor] 50 mg PO TID 07/09/20 07/29/21 History Omeprazole 20 mg PO BID 08/02/20 07/29/21 History Sevelamer [Renvela] 3,200 mg PO AC-TID 12/01/20 07/29/21 History Sevelamer [Renvela] 800 - 1,600 mg PO DAILY PRN 12/01/20 07/29/21 History Lidocaine-Prilocaine Cream [Emla 1 applic TOPICAL DIRECTED PRN 06/18/21 07/29/21 History Cream 2.5%/2.5%] Ondansetron [Zofran] 4 mg PO TID PRN 06/18/21 07/29/21 History Sodium Zirconium Cyclosilicate 10 gm PO SUMOWEFR 06/18/21 07/29/21 History [Lokelma] rOPINIRole HCL [Requip] 1 mg PO BID 06/18/21 07/29/21 History Insulin Glargine,Hum.rec.anlog 40 unit SQ HS #0 06/20/21 07/29/21 Rx [Lantus Solostar Pen] Bumetanide [BUMEX] 1 mg PO BID@0900,1400 07/08/21 07/29/21 History Gabapentin [Neurontin] 100 mg PO BID@0800,1200 07/08/21 07/29/21 History Gabapentin [Neurontin] 200 mg PO HS 07/08/21 07/29/21 History bisacodyL [Dulcolax] 10 mg PO HS 07/08/21 07/29/21 History Cinacalcet [Sensipar] 30 mg PO TUTHSA 07/29/21 07/29/21 History Melatonin 3 mg PO HS PRN 07/29/21 07/29/21 History Allergies Allergy/AdvReac Type Severity Reaction Status Date / Time Anesthetics - Amide Type - Allergy cardiac Verified 07/29/21 20:20 Select A arrest Anesthetics - Andree Type- Allergy cardiac Verified 07/29/21 20:20 Parabens arrest hydromorphone [From Dilaudid] Allergy Swelling Verified 07/29/21 20:20 ciprofloxacin [From Cipro] AdvReac AFFECTED Verified 07/29/21 20:20 EYESIGHT ciprofloxacin HCl AdvReac AFFECTED Verified 07/29/21 20:20 [From Cipro] EYESIGHT Iodinated Contrast Media AdvReac RENAL Verified 07/29/21 20:20 FAILURE Physical Exam Vitals: Vital Signs Temp Pulse Pulse Resp BP BP Pulse Ox 07/30/21 07:59 98.2 F 80 18 178/81 98 07/30/21 03:30 97.9 F 72 18 171/92 98 07/30/21 01:26 18 07/30/21 00:56 97.8 F 76 18 180/92 99 07/30/21 00:22 56 L 20 157/77 99 07/29/21 18:14 67 20 175/88 99 07/29/21 16:17 97.9 F 71 16 196/92 99 Intake and Output 07/29/21 07/30/21 07/30/21 22:59 06:59 14:59 Intake Total 110 270 Balance 110 270 Intake: IV 10 10 Invasive Line 1 10 10 Oral 100 260 Other: Voiding Method Toilet # Voids 0 2 # Bowel Movements 2 Weight 77.9 kg 84 kg Patient is awake comfortable, Alert and oriented 3 Her face is puffy Examination of the heart S1 and S2 Examination lungs decreased breath sounds at the bases Abdomen is distended with ascites Examination lower extremities shows 4+ edema bilaterally 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 End-stage renal disease on hemodialysis on a Thursday schedule 2. Severe volume overload 3. Hyperkalemia associated with end-stage renal disease and some degree of dietary noncompliance. Patient is maintained on loKELMA on nondialysis days 4. Chronic liver disease with recurrent ascites 5. History of endocarditis status post mitral valve replacement at [facility] in March 2020 6. CK D mineral bone disorder Plan: Daily hemodialysis and increase ultrafiltration as tolerated Continue Renvela
[2021-07-30 11:47] LABS: Glucose,Whole Blood 58 mg/dL (75-99)
[2021-07-30 12:12] LABS: Glucose,Whole Blood 69 mg/dL (75-99)
[2021-07-30 12:30] LABS: Glucose,Whole Blood 105 mg/dL (75-99)
--- NOTE | 2021-07-30 15:37 | US ---
Ultrasound-guided paracentesis. DATE OF EXAM: 07/30/2021 CLINICAL HISTORY: ascites The procedure was discussed with the patient. The risks, complications, benefits, and alternatives we re discussed and any questions were answered. Informed consent was obtained. The patient was placed s upine on the ultrasound table and prepped and draped in the usual sterile fashion. All elements of maximal barrier technique were utilized. Under ultrasound guidance, access into the right lower quadrant was obtained, via the paracentesis catheter system and direct ultrasound guidanc e. Approximately 3.2 liters of straw-colored fluid was removed. The patient was stable throughout the pr ocedure and remained stable upon discharge from Department of Radiology. IMPRESSION: Successful paracentesis under ultrasound guidance.
[2021-07-30 16:30] LABS: Glucose,Whole Blood 152 mg/dL (75-99)
[2021-07-30 18:16] LABS: Calcium 8.5 mg/dL (8.4-10.2)
[2021-07-30 18:21] LABS: Potassium 6.2 mmol/L (3.5-5.1)
[2021-07-30] MEDS ORDERED: SODIUM POLYSTYRENE SULFONATE 15 GM/60 ML BOTTLE PO STA (18:53)
[2021-07-30 20:09] LABS: Glucose,Whole Blood 164 mg/dL (75-99)
[2021-07-30] MEDS: INSULIN DETEMIR (LEVEMIR) 100 UNIT/ML SYR SQ SCH (20:22)
--- NOTE | 2021-07-30 22:50 | HP ---
HISTORY AND PHYSICAL This 56-year-old white female came in with liver failure, severe cirrhosis, unhappy with her dialysis as an outpatient, possibly going to another unit. She came in for liver paracentesis. She was found to have severe hyperkalemia in the ER, was given potassium-lowering agents and for dialysis. PAST MEDICAL HISTORY: See old chart. SOCIAL HISTORY: See old chart. All reviewed. REVIEW OF SYSTEMS: Fourteen-point review of systems otherwise negative. Please see HPI. FAMILY HISTORY: Reviewed. See list. HOME MEDICINES: See list. ALLERGIES: See list. PHYSICAL EXAMINATION: VITAL SIGNS: Temperature 97 to 98, blood pressure 150s to 190s over 70s to 80s. She is awake, alert, oriented x3. Face is puffy. HEART: S1, S2. Abdomen is distended due to ascitic wave. Extremities with 4+ edema. Lungs decreased breath sounds at the base. Cardiovascular S1, S2. Labs reviewed. Potassium 7, sodium 134, BUN 63, creatinine 9.08. ASSESSMENT: 1. End-stage renal disease. 2. Severe volume overload. 3. Hyperkalemia associated with end-stage renal disease. They say she is dietary noncompliant. She is getting Lokelma on non-dialysis days for hyperkalemia. 4. Chronic liver disease. 5. Recurrent ascites. She will need paracentesis. 6. History of endocarditis. 7. Mitral valve replaced in 2019. 8. Chronic mineral bone disorder. 9. Hypertension. 10.Multiple medical conditions. Continue , dialysis. Paracentesis prior to going home. MMODL / IJN: [id number] /
[2021-07-31 04:46] LABS: Glucose,Whole Blood 60 mg/dL (75-99)
[2021-07-31 05:03] LABS: Glucose,Whole Blood 85 mg/dL (75-99)
[2021-07-31 06:04] LABS: Glucose,Whole Blood 99 mg/dL (75-99)
[2021-07-31 08:25] LABS: Anisocytosis Slight; Basophils % (A) 0 %; Eosinophils # (A) 0.1 k/uL (0-0.7); Eosinophils % (A) 2 %; HCT 35.4 % (34.0-46.0); HGB 10.7 gm/dL (11.4-16.0); Hypochromasia Moderate; Lymphocytes # (A) 0.4 k/uL (1.0-4.8); Lymphocytes % (A) 10 %; MCH 30.1 pg (25.0-35.0); MCHC 30.2 g/dL (31.0-37.0); MCV 99.7 fL (80.0-100.0); Macrocytosis Slight; Mean Platelet Volume 8.6; Monocytes # (A) 0.3 k/uL (0-1.0); Monocytes % (A) 7 %; Neutrophils % (A) 80 %; Platelet Count 114 k/uL (150-450); RBC 3.55 m/uL (3.80-5.40); WBC 3.8 k/uL (3.8-10.6)
[2021-07-31 08:37] LABS: Albumin 3.9 g/dL (3.5-5.0); Calcium 8.6 mg/dL (8.4-10.2); Total Bilirubin 0.8 mg/dL (0.2-1.3); Total Protein 6.6 g/dL (6.3-8.2)
[2021-07-31] MEDS: SEVELAMER 800 MG TAB PO SCH ×3 (09:00→15:09)
[2021-07-31] MEDS: INSULIN ASPART (NovoLOG) 100 UNIT/ML VIAL SQ SCH ×3 (09:00→17:30)
[2021-07-31] MEDS: cloNIDine HCL 0.1 MG TAB PO SCH ×3 (09:01→19:33)
[2021-07-31] MEDS: METOPROLOL TARTRATE 50 MG TAB PO SCH ×3 (09:01→19:33)
[2021-07-31] MEDS: GABAPENTIN 100 MG CAP PO SCH ×3 (09:04→19:33)
[2021-07-31] MEDS: BUMETANIDE 1 MG TAB PO SCH ×2 (09:04→15:10)
[2021-07-31 09:09] LABS: Potassium 6.4 mmol/L (3.5-5.1)
[2021-07-31] MEDS: MORPHINE SULFATE 2 MG/ML SYRINGE IV PRN ×3 (09:13→19:33)
[2021-07-31] MEDS: FAMOTIDINE 20 MG TAB PO SCH (09:13)
[2021-07-31 12:05] LABS: Glucose,Whole Blood 103 mg/dL (75-99)
--- NOTE | 2021-07-31 12:36 | P.PN ---
Subjective Patient is seen for follow-up for end-stage renal disease. She was admitted to the hospital with severe volume overload and hyperkalemia. Patient is seen on dialysis. She is tolerating her treatment well. She had 4 L of ultrafiltration yesterday. We're planning for another 4 L today Objective - Vital Signs Vital signs: Vital Signs Temp 97.6 F 07/31/21 11:24 Pulse 64 07/31/21 11:24 Resp 18 07/31/21 11:24 BP 174/81 07/31/21 11:24 Pulse Ox 98 07/31/21 07:46 Intake & Output 07/30/21 07/31/21 07/31/21 18:59 06:59 18:59 Intake Total 638 1200 120 Output Total 4000 Balance -3362 1200 120 Weight 78.6 kg Intake: IV 20 Invasive Line 1 20 Oral 618 1200 120 Output: Hemodialysis 4000 Other: # Voids 2 # Bowel Movements 2 - Exam Awake, comfortable, not in any acute distress Examination of the heart S1 and S2 Examination lungs decreased breath sounds at the bases Abdomen is soft distended Examination of lower extremities shows 4+ edema bilaterally 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 - Labs CBC & Chem 7: 07/31/21 07:51 07/31/21 07:51 Labs: Abnormal Lab Results - Last 24 Hours (Table) 07/30/21 07/30/21 07/30/21 Range/Units 16:28 17:50 20:03 RBC (3.80-5.40) m/uL Hgb (11.4-16.0) gm/dL MCHC (31.0-37.0) g/dL RDW (11.5-15.5) % Plt Count (150-450) k/uL Lymphocytes # (1.0-4.8) k/uL Sodium 135 L (137-145) mmol/L Potassium 6.2 H* (3.5-5.1) mmol/L BUN 36 H (7-17) mg/dL Creatinine 5.95 H (0.52-1.04) mg/dL Glucose 235 H (74-99) mg/dL POC Glucose (mg/dL) 152 H 164 H (75-99) mg/dL 07/31/21 07/31/21 07/31/21 Range/Units 04:44 07:51 07:51 RBC 3.55 L (3.80-5.40) m/uL Hgb 10.7 L (11.4-16.0) gm/dL MCHC 30.2 L (31.0-37.0) g/dL RDW 17.0 H (11.5-15.5) % Plt Count 114 L (150-450) k/uL Lymphocytes # 0.4 L (1.0-4.8) k/uL Sodium (137-145) mmol/L Potassium 6.4 H* (3.5-5.1) mmol/L BUN 46 H (7-17) mg/dL Creatinine 6.94 H (0.52-1.04) mg/dL Glucose 104 H (74-99) mg/dL POC Glucose (mg/dL) 60 L (75-99) mg/dL 07/31/21 Range/Units 12:03 RBC (3.80-5.40) m/uL Hgb (11.4-16.0) gm/dL MCHC (31.0-37.0) g/dL RDW (11.5-15.5) % Plt Count (150-450) k/uL Lymphocytes # (1.0-4.8) k/uL Sodium (137-145) mmol/L Potassium (3.5-5.1) mmol/L BUN (7-17) mg/dL Creatinine (0.52-1.04) mg/dL Glucose (74-99) mg/dL POC Glucose (mg/dL) 103 H (75-99) mg/dL Microbiology - Last 24 Hours (Table) 07/29/21 19:24 Urine Culture - Final Urine,Voided Assessment and Plan Assessment: 1. End-stage renal disease on hemodialysis on a Thursday schedule 2. Severe volume overload 3. Hyperkalemia associated with end-stage renal disease and some degree of dietary noncompliance. Patient is maintained on loKELMA on nondialysis days 4. Chronic liver disease with recurrent ascites, status post paracentesis with 3.2 L removed 5. History of endocarditis status post mitral valve replacement at [facility] in March 2020 6. CK D mineral bone disorder Plan: Daily hemodialysis and increase ultrafiltration as tolerated Continue Renjagdeep Discussed importance of dietary compliance
[2021-07-31 16:33] LABS: Glucose,Whole Blood 235 mg/dL (75-99)
--- NOTE | 2021-07-31 18:03 | PN ---
PROGRESS NOTE Her blood pressure is better today at 158/71. Saturating 96 on room air, temperature 98.7, pulse 70, respiration 18. She got 2.5 L on paracentesis yesterday. She has fluid overload, hyperkalemia. We gave her some Kayexalate last night for hyperkalemia. Dr. Orozco is going to do dialysis due to severe fluid overload. Four liters of ultrafiltration on her dialysis yesterday. They are going to do another 4 liters today. Vital signs are reviewed. Sodium 138, potassium 6.4, BUN is 46, creatinine 6.94. Alert and oriented x3. Psych fair mood and affect. Lungs clear. GI soft. Hematology negative Homans. ASSESSMENT: 1. End-stage renal disease, on hemodialysis. 2. Severe volume overload. 3. Hyperkalemia. 4. liver disease. 5. Recurrent ascites. 6. History of endocarditis. 7. disorder. Daily hemodialysis. Increase ultrafiltration. Continue Renvela. Prognosis guarded. Follow up in next 24 to 48 hours. MMODL / IJN: [id number] /
[2021-07-31 19:01] LABS: Calcium 8.6 mg/dL (8.4-10.2); Potassium 4.7 mmol/L (3.5-5.1)
[2021-07-31] MEDS: FUROSEMIDE 10 MG/ML 4 ML VIAL IV SCH (19:33)
[2021-07-31] MEDS: INSULIN DETEMIR (LEVEMIR) 100 UNIT/ML SYR SQ SCH (19:34)
[2021-07-31 19:44] LABS: Glucose,Whole Blood 142 mg/dL (75-99)
[2021-08-01 00:44] LABS: Glucose,Whole Blood 57 mg/dL (75-99)
[2021-08-01 01:04] LABS: Glucose,Whole Blood 85 mg/dL (75-99)
[2021-08-01] MEDS: MORPHINE SULFATE 2 MG/ML SYRINGE IV PRN ×4 (03:29→20:52)
[2021-08-01] MEDS: ONDANSETRON 4 MG/2 ML VIAL IVP PRN (03:58)
[2021-08-01 06:08] LABS: Glucose,Whole Blood 151 mg/dL (75-99)
[2021-08-01 07:21] LABS: Anisocytosis Slight; Basophils % (A) 1 %; Eosinophils # (A) 0.1 k/uL (0-0.7); Eosinophils % (A) 2 %; HCT 37.7 % (34.0-46.0); HGB 11.5 gm/dL (11.4-16.0); Hypochromasia Moderate; Lymphocytes # (A) 0.5 k/uL (1.0-4.8); Lymphocytes % (A) 14 %; MCH 30.5 pg (25.0-35.0); MCHC 30.5 g/dL (31.0-37.0); MCV 99.8 fL (80.0-100.0); Macrocytosis Slight; Mean Platelet Volume 9.1; Monocytes # (A) 0.3 k/uL (0-1.0); Monocytes % (A) 8 %; Neutrophils # (A) 2.7 k/uL (1.3-7.7); Neutrophils % (A) 74 %; Platelet Count 116 k/uL (150-450); RBC 3.78 m/uL (3.80-5.40); RDW 16.7 % (11.5-15.5); WBC 3.7 k/uL (3.8-10.6)
[2021-08-01 07:34] LABS: Albumin 3.9 g/dL (3.5-5.0); Calcium 8.8 mg/dL (8.4-10.2); Potassium 5.2 mmol/L (3.5-5.1); Total Bilirubin 0.8 mg/dL (0.2-1.3); Total Protein 6.8 g/dL (6.3-8.2)
[2021-08-01] MEDS: SEVELAMER 800 MG TAB PO SCH ×3 (08:16→16:59)
[2021-08-01] MEDS: FAMOTIDINE 20 MG TAB PO SCH (08:17)
[2021-08-01] MEDS: cloNIDine HCL 0.1 MG TAB PO SCH ×4 (08:17→20:51)
[2021-08-01] MEDS: METOPROLOL TARTRATE 50 MG TAB PO SCH ×4 (08:17→20:51)
[2021-08-01] MEDS: GABAPENTIN 100 MG CAP PO SCH ×3 (08:17→20:51)
[2021-08-01] MEDS: FUROSEMIDE 10 MG/ML 4 ML VIAL IV SCH ×2 (08:18→08:21)
[2021-08-01] MEDS: INSULIN ASPART (NovoLOG) 100 UNIT/ML VIAL SQ SCH ×4 (08:22→17:34)
[2021-08-01] MEDS ORDERED: FUROSEMIDE 10 MG/ML 10 ML VIAL IV STA (11:35)
--- NOTE | 2021-08-01 11:39 | P.PN ---
Subjective Patient is seen for follow-up for end-stage renal disease. She was admitted to the hospital with severe volume overload and hyperkalemia. Patient is seen on dialysis. She is tolerating her treatment well. She had 4 L of ultrafiltration yesterday. We're planning for another 4 L today Overall feeling much better. About 12 L of fluid taken off so far Objective - Vital Signs Vital signs: Vital Signs Temp 98.0 F 08/01/21 08:11 Pulse 58 L 08/01/21 08:11 Resp 18 08/01/21 08:11 BP 176/76 08/01/21 08:11 Pulse Ox 96 08/01/21 08:11 Intake & Output 07/31/21 08/01/21 08/01/21 18:59 06:59 18:59 Intake Total 990 600 240 Output Total 4000 265 Balance -3010 335 240 Weight 77 kg Intake: IV 10 Invasive Line 1 10 Oral 980 600 240 Output: Urine 65 Emesis 200 Other 4000 Other: Voiding Method Toilet # Voids 3 # Bowel Movements 0 - Exam Awake, comfortable, not in any acute distress Examination of the heart S1 and S2 Examination lungs decreased breath sounds at the bases Abdomen is soft distended Examination of lower extremities shows 4+ edema bilaterally 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 - Labs CBC & Chem 7: 08/01/21 06:56 08/01/21 06:56 Labs: Abnormal Lab Results - Last 24 Hours (Table) 07/31/21 07/31/21 07/31/21 Range/Units 12:03 16:31 18:40 WBC (3.8-10.6) k/uL RBC (3.80-5.40) m/uL MCHC (31.0-37.0) g/dL RDW (11.5-15.5) % Plt Count (150-450) k/uL Lymphocytes # (1.0-4.8) k/uL Sodium 136 L (137-145) mmol/L Potassium (3.5-5.1) mmol/L Chloride 96 L (98-107) mmol/L Carbon Dioxide (22-30) mmol/L BUN 28 H (7-17) mg/dL Creatinine 4.95 H (0.52-1.04) mg/dL Glucose 244 H (74-99) mg/dL POC Glucose (mg/dL) 103 H 235 H (75-99) mg/dL 07/31/21 08/01/21 08/01/21 Range/Units 19:42 00:42 06:02 WBC (3.8-10.6) k/uL RBC (3.80-5.40) m/uL MCHC (31.0-37.0) g/dL RDW (11.5-15.5) % Plt Count (150-450) k/uL Lymphocytes # (1.0-4.8) k/uL Sodium (137-145) mmol/L Potassium (3.5-5.1) mmol/L Chloride (98-107) mmol/L Carbon Dioxide (22-30) mmol/L BUN (7-17) mg/dL Creatinine (0.52-1.04) mg/dL Glucose (74-99) mg/dL POC Glucose (mg/dL) 142 H 57 L 151 H (75-99) mg/dL 08/01/21 08/01/21 Range/Units 06:56 06:56 WBC 3.7 L (3.8-10.6) k/uL RBC 3.78 L (3.80-5.40) m/uL MCHC 30.5 L (31.0-37.0) g/dL RDW 16.7 H (11.5-15.5) % Plt Count 116 L (150-450) k/uL Lymphocytes # 0.5 L (1.0-4.8) k/uL Sodium 136 L (137-145) mmol/L Potassium 5.2 H (3.5-5.1) mmol/L Chloride 95 L (98-107) mmol/L Carbon Dioxide 31 H (22-30) mmol/L BUN 36 H (7-17) mg/dL Creatinine 5.77 H (0.52-1.04) mg/dL Glucose 120 H (74-99) mg/dL POC Glucose (mg/dL) (75-99) mg/dL Assessment and Plan Assessment: 1. End-stage renal disease on hemodialysis on a Thursday schedule 2. Severe volume overload 3. Hyperkalemia associated with end-stage renal disease and some degree of dietary noncompliance. Patient is maintained on loKELMA on nondialysis days 4. Chronic liver disease with recurrent ascites, status post paracentesis with 3.2 L removed 5. History of endocarditis status post mitral valve replacement at [facility] in March 2020 6. CK D mineral bone disorder Plan: Daily hemodialysis and increase ultrafiltration as tolerated Continue Rema Discussed importance of dietary compliance Possible discharge tomorrow after dialysis and patient can have her treatment at the outpatient unit on Thursday.
[2021-08-01 12:02] LABS: Glucose,Whole Blood 63 mg/dL (75-99)
[2021-08-01 12:10] LABS: Glucose,Whole Blood 63 mg/dL (75-99)
[2021-08-01 12:35] LABS: Glucose,Whole Blood 115 mg/dL (75-99)
--- NOTE | 2021-08-01 13:57 | CDI ---
Documentation Clarification Form Date: 08/01/2021 01:41:44 PM From: Latosha Melchor RN CCDS Admit Date: 07/29/2021 11:33:00 PM Patient Name: Sara Desouza Visit Number: [id number] Discharge Date: ATTENTION: The Clinical Documentation Specialists (CDI) and [facility] Coding Staff appreciate your assistance in clarifying documentation. Please respond to the clarification below the line at the bottom and electronically sign. The CDI & [facility] Coding staff will review the response and follow-up if needed. Please note: Queries are made part of the Legal Health Record. If you have any questions, please contact the author of this message via ITS. Dr. Michael Mora MD Your patient has the documented diagnosis of CHF 07/30, Nephrology consult. Additional information regarding the type, acuity of CHF is requested. History/Risk Factors: 56-year-old female presents to the ED per her PCP needing dialysis and paracentesis. Medical History: CHF, COPD, DM, Renal Dialysis, HTN and ESRD. 07/29, ED Note. Clinical Indicators: 07/30, H&P, Severe volume overload VS/Pulse OX: 07/29 B/P 196/92; HR 71; Temp 97.9; RR 16; SpO2 99% room air BNP: 07/29 BNP 73512 Echocardiogram Results:01/23/2021 EF 55-60% Right ventricle mildly enlarged. LA moderately dilated 34-39 ml/m2. Mild annular calcification present. Trace mitral regurgitation. Severe tricuspid regurgitation. Severe pulmonary HTN. Chest X Ray: 07/29 No acute cardiopulmonary disease Treatment: 07/30 07/31 Bumex 1mg PO BID; 07/31 08/01 Lasix 40mg IV Q12HR; 08/01 current Lopressor 50mg PO TID. In your professional opinion, can you please clarify the acuity and type of CHF if known? [ ] Acute on Chronic Diastolic Heart Failure (preserved EF) [ ] Other, please specify [ ] Unable to determine (Template Last Revised: June 2020) No heart failure. MTDD
[2021-08-01 16:47] LABS: Glucose,Whole Blood 132 mg/dL (75-99)
--- NOTE | 2021-08-01 17:23 | P.PN ---
Progress Note - Text Progress Note Date: 08/01/21 Chief Complaint: Chest pain This is a pleasant 56-year-old patient who follows with Dr. David Bragg. Chronic stable medical conditions include COPD, diabetes, end-stage kidney disease on hemodialysis with left arm fistula, hyperlipidemia hypertension and hypertriglyceridemia-induced acute pancreatitis, pancreatic resection at [facility] 2009. Patient had presented to the ER with fluid overload.. August 01: I'm rounding for Dr. David Bragg Patient was dialyzed yesterday and today. Had paracentesis is done the day before. Oral intake is fair. Had a bowel movement. Reclining in bed. Active Medications Acetaminophen (Acetaminophen Tab 325 Mg Tab) 650 mg PO Q6HR PRN PRN Reason: Mild Pain or Fever > 100.5 Clonidine (Clonidine Hcl 0.1 Mg Tab) 0.3 mg PO TID COUNT INCLUDES THE [facility] Last Admin: 08/01/21 16:59 Dose: 0.3 mg Documented by: Famotidine (Famotidine 20 Mg Tab) 20 mg PO DAILY COUNT INCLUDES THE [facility] Last Admin: 08/01/21 08:17 Dose: 20 mg Documented by: Gabapentin (Gabapentin 100 Mg Cap) 100 mg PO BID@0800,1200 COUNT INCLUDES THE [facility] Last Admin: 08/01/21 13:51 Dose: 100 mg Documented by: Gabapentin (Gabapentin 100 Mg Cap) 200 mg PO [facility] Last Admin: 07/31/21 19:33 Dose: 200 mg Documented by: Insulin Aspart (Insulin Aspart (Novolog) 100 Unit/Ml Vial) 15 unit SQ AC-TID COUNT INCLUDES THE [facility] Last Admin: 08/01/21 16:54 Dose: Not Given Documented by: Insulin Detemir (Insulin Detemir (Levemir) 100 Unit/Ml Syr) 40 unit SQ [facility] Last Admin: 07/31/21 19:34 Dose: 40 unit Documented by: Metoprolol Tartrate (Metoprolol Tartrate 50 Mg Tab) 50 mg PO TID COUNT INCLUDES THE [facility] Last Admin: 08/01/21 16:59 Dose: 50 mg Documented by: Morphine Sulfate (Morphine Sulfate 2 Mg/Ml Syringe) 2 mg IV Q4HR PRN PRN Reason: Severe Pain Last Admin: 08/01/21 15:20 Dose: 2 mg Documented by: Naloxone HCl (Naloxone 0.4 Mg/Ml 1 Ml Vial) 0.2 mg IV Q2M PRN PRN Reason: Opioid Reversal Ondansetron HCl (Ondansetron 4 Mg/2 Ml Vial) 4 mg IVP Q8HR PRN PRN Reason: Nausea And Vomiting Last Admin: 08/01/21 03:58 Dose: 4 mg Documented by: Ropinirole HCl (Ropinirole Hcl 1 Mg Tab) 1 mg PO BID COUNT INCLUDES THE [facility] Last Admin: 08/01/21 08:17 Dose: 1 mg Documented by: Sevelamer Carbonate (Sevelamer 800 Mg Tab) 3,200 mg PO AC-TID COUNT INCLUDES THE [facility] Last Admin: 08/01/21 16:59 Dose: 3,200 mg Documented by: Past medical history to include: Diastolic heart failure, valvular heart disease status post mitral valve repair in the setting of endocarditis, end-stage kidney disease on hemodialysis, anemia, diabetes mellitus type, hyperlipidemia, hypertension, secondary pulmonary hypertension with renal bone disease, anemia of chronic kidney disease, fatty liver disease leading to cirrhosis with portal hypertension, ascites, acute kidney injury after pancreatic surgery requiring hemodialysis previously 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 No alcohol. . Family history: Cancer, CHF, diabetes Physical examination: VITAL SIGNS: 98.2, 69, 18, 160/76, 97% room air GENERAL: Propped up in bed, awake, getting dialysis EYES: Pupils equal. Conjunctiva normal. HEENT: External appearance of nose and ears normal, oral cavity grossly normal. NECK: JVD not raised; masses not palpable. HEART: First and second heart sounds are normal; edema present. LUNGS: Respiratory rate normal; clear to auscultation. ABDOMEN: Soft, distended, nontender, liver spleen not palpable, no masses palpable. PSYCH: Alert and oriented x3; mood and affect normal. MUSCULOSKELETAL:No Clubbing/cyanosis;muscles-grossly intact NEUROLOGICAL: Cranial nerves grossly intact; no facial asymmetry, power and sensation: Some decreased sensation peripherally. INVESTIGATIONS, reviewed in the clinical context: White count 3.7 hemoglobin 11.5 platelets 160 sodium 136 potassium 5.2 BUN 36 creatinine 5.77 Assessment and plan: -Severe fluid overload. Daily hemodialysis. -Hypertensive heart disease -Secondary severe pulmonary hypertension -Severe tricuspid regurgitation Follow with cardiology - Large ascites secondary to cirrhosis: Continue Bumex . 4 L of thoracentesis. -Portal hypertension with hepatosplenomegaly secondary to cirrhosis Bumex -Cirrhosis secondary to fatty liver Patient does follow with Dr. Andrei Guaman Diabetes mellitus type 2, chronically on insulin. Uncontrolled with hyperglycemia. Cutback Levemir 26 units subcu daily at bedtime. And Humalog to 6 units before meals 3 times a day Accu-Chek. -End-stage kidney disease on hemodialysis Hemodialysis, Thursday. Nephrology consult -Hyperlipidemia Cardiac diet -Restless leg syndrome On Requip 1 mg twice a day -Essential hypertension Catapres 0.3 mg 3 times a day, , Lopressor 50 mg 3 times a day 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 renvela -Painful peripheral neuropathy: Better Neurontin to 200 mg at bedtime, 100 mg twice a day -Chronic insomnia from multiple medical problems Ambien 2.5 mg daily at bedtime Care was discussed with the patient. Continue daily ultrafiltration. Scale right Levemir to 26 units at night and 6 units of Humalog with meals time.
[2021-08-01 17:42] LABS: Calcium 8.9 mg/dL (8.4-10.2); Potassium 5.3 mmol/L (3.5-5.1)
[2021-08-01 20:21] LABS: Glucose,Whole Blood 220 mg/dL (75-99)
[2021-08-01] MEDS: INSULIN DETEMIR (LEVEMIR) 100 UNIT/ML SYR SQ SCH (20:53)
[2021-08-01] MEDS ORDERED: ZOLPIDEM 5 MG TAB PO PRN (21:00)
[2021-08-02 00:01] LABS: Glucose,Whole Blood 215 mg/dL (75-99)
[2021-08-02] MEDS: ONDANSETRON 4 MG/2 ML VIAL IVP PRN (01:17)
[2021-08-02] MEDS: MORPHINE SULFATE 2 MG/ML SYRINGE IV PRN ×4 (05:04→23:12)
[2021-08-02] MEDS: INSULIN ASPART (NovoLOG) 100 UNIT/ML VIAL SQ SCH ×3 (06:13→17:00)
[2021-08-02] MEDS: SEVELAMER 800 MG TAB PO SCH ×3 (06:21→17:00)
[2021-08-02 06:25] LABS: Glucose,Whole Blood 92 mg/dL (75-99)
[2021-08-02] MEDS: METOPROLOL TARTRATE 50 MG TAB PO SCH ×3 (09:59→21:18)
[2021-08-02] MEDS: cloNIDine HCL 0.1 MG TAB PO SCH ×3 (09:59→21:18)
[2021-08-02] MEDS: FAMOTIDINE 20 MG TAB PO SCH (10:25)
[2021-08-02] MEDS: GABAPENTIN 100 MG CAP PO SCH ×3 (10:25→21:18)
[2021-08-02 11:35] LABS: Glucose,Whole Blood 142 mg/dL (75-99)
--- NOTE | 2021-08-02 14:02 | P.PN ---
Subjective Patient is seen for follow-up for end-stage renal disease. She was admitted to the hospital with severe volume overload and hyperkalemia. Patient had 4 L of ultrafiltration yesterday. We're planning for another 4 L today Overall feeling much better. About 12 L of fluid taken off so far This morning patient had trouble with her access. We will try again in a couple of hours. Objective - Vital Signs Vital signs: Vital Signs Temp 97.2 F L 08/02/21 09:00 Pulse 68 08/02/21 09:00 Resp 18 08/02/21 09:00 BP 178/85 08/02/21 09:00 Pulse Ox 100 08/02/21 09:00 Intake & Output 08/01/21 08/02/21 08/02/21 18:59 06:59 18:59 Intake Total 878 120 Output Total 3740 Balance -2862 120 Intake: Oral 578 120 Hemodialysis 300 Output: Hemodialysis 3740 Other: Voiding Method Toilet Toilet # Voids 2 1 1 - Exam Awake, comfortable, not in any acute distress Examination of the heart S1 and S2 Examination lungs decreased breath sounds at the bases Abdomen is soft distended Examination of lower extremities shows 4+ edema bilaterally 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 - Labs CBC & Chem 7: 08/01/21 06:56 08/01/21 17:19 Labs: Abnormal Lab Results - Last 24 Hours (Table) 08/01/21 08/01/21 08/01/21 Range/Units 16:46 17:19 20:10 Sodium 133 L (137-145) mmol/L Potassium 5.3 H (3.5-5.1) mmol/L Chloride 93 L (98-107) mmol/L BUN 26 H (7-17) mg/dL Creatinine 5.12 H (0.52-1.04) mg/dL Glucose 132 H (74-99) mg/dL POC Glucose (mg/dL) 132 H 220 H (75-99) mg/dL 08/01/21 08/02/21 Range/Units 23:59 11:34 Sodium (137-145) mmol/L Potassium (3.5-5.1) mmol/L Chloride (98-107) mmol/L BUN (7-17) mg/dL Creatinine (0.52-1.04) mg/dL Glucose (74-99) mg/dL POC Glucose (mg/dL) 215 H 142 H (75-99) mg/dL Assessment and Plan Assessment: 1. End-stage renal disease on hemodialysis on a Thursday schedule 2. Severe volume overload 3. Hyperkalemia associated with end-stage renal disease and some degree of dietary noncompliance. Patient is maintained on loKELMA on nondialysis days 4. Chronic liver disease with recurrent ascites, status post paracentesis with 3.2 L removed 5. History of endocarditis status post mitral valve replacement at [facility] in March 2020 6. CK D mineral bone disorder Plan: Hemodialysis today and then again in a.m. if patient is not discharged. If unable to access AV fistula we will consult vascular surgery. Patient sees Dr. Saud Hodgson
[2021-08-02 16:13] LABS: Glucose,Whole Blood 158 mg/dL (75-99)
--- NOTE | 2021-08-02 16:35 | P.PN ---
Progress Note - Text Progress Note Date: 08/02/21 Chief Complaint: Chest pain This is a pleasant 56-year-old patient who follows with Dr. David Bragg. Chronic stable medical conditions include COPD, diabetes, end-stage kidney disease on hemodialysis with left arm fistula, hyperlipidemia hypertension and hypertriglyceridemia-induced acute pancreatitis, pancreatic resection at [facility] 2009. Patient had presented to the ER with fluid overload.. August 01: I'm rounding for Dr. David Bragg Patient was dialyzed yesterday and today. Had paracentesis is done the day before. Oral intake is fair. Had a bowel movement. Reclining in bed. August 02: I saw the patient earlier today. Having trouble difficulty with her access. Possible hemodialysis later today. Ultrafiltration also tomorrow. Edema coming down. Active Medications Acetaminophen (Acetaminophen Tab 325 Mg Tab) 650 mg PO Q6HR PRN PRN Reason: Mild Pain or Fever > 100.5 Clonidine (Clonidine Hcl 0.1 Mg Tab) 0.3 mg PO TID [facility] Last Admin: 08/02/21 09:59 Dose: Not Given Documented by: Famotidine (Famotidine 20 Mg Tab) 20 mg PO DAILY [facility] Last Admin: 08/02/21 10:25 Dose: 20 mg Documented by: Gabapentin (Gabapentin 100 Mg Cap) 100 mg PO BID@0800,1200 [facility] Last Admin: 08/02/21 12:35 Dose: 100 mg Documented by: Gabapentin (Gabapentin 100 Mg Cap) 200 mg PO [facility] Last Admin: 08/01/21 20:51 Dose: 200 mg Documented by: Insulin Aspart (Insulin Aspart (Novolog) 100 Unit/Ml Vial) 6 unit SQ AC-TID [facility] Last Admin: 08/02/21 12:35 Dose: 6 unit Documented by: Insulin Detemir (Insulin Detemir (Levemir) 100 Unit/Ml Syr) 26 unit SQ [facility] Last Admin: 08/01/21 20:53 Dose: 26 unit Documented by: Metoprolol Tartrate (Metoprolol Tartrate 50 Mg Tab) 50 mg PO TID [facility] Last Admin: 08/02/21 09:59 Dose: Not Given Documented by: Morphine Sulfate (Morphine Sulfate 2 Mg/Ml Syringe) 2 mg IV Q4HR PRN PRN Reason: Severe Pain Last Admin: 08/02/21 12:40 Dose: 2 mg Documented by: Naloxone HCl (Naloxone 0.4 Mg/Ml 1 Ml Vial) 0.2 mg IV Q2M PRN PRN Reason: Opioid Reversal Ondansetron HCl (Ondansetron 4 Mg/2 Ml Vial) 4 mg IVP Q8HR PRN PRN Reason: Nausea And Vomiting Last Admin: 08/02/21 01:17 Dose: 4 mg Documented by: Ropinirole HCl (Ropinirole Hcl 1 Mg Tab) 1 mg PO BID [facility] Last Admin: 08/02/21 10:25 Dose: 1 mg Documented by: Sevelamer Carbonate (Sevelamer 800 Mg Tab) 3,200 mg PO AC-TID [facility] Last Admin: 08/02/21 12:35 Dose: 3,200 mg Documented by: Zolpidem Tartrate (Zolpidem 5 Mg Tab) 2.5 mg PO HS PRN PRN Reason: Insomnia Past medical history to include: Diastolic heart failure, valvular heart disease status post mitral valve repair in the setting of endocarditis, end-stage kidney disease on hemodialysis, anemia, diabetes mellitus type, hyperlipidemia, hypertension, secondary pulmonary hypertension with renal bone disease, anemia of chronic kidney disease, fatty liver disease leading to cirrhosis with portal hypertension, ascites, acute kidney injury after pancreatic surgery requiring hemodialysis previously 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 No alcohol. . Family history: Cancer, CHF, diabetes Physical examination: VITAL SIGNS: 97.2, 68, 18, 170/85, 100% room air GENERAL: Sitting of the edge of the bed awake, AV fistula left arm EYES: Pupils equal. Conjunctiva normal. HEENT: External appearance of nose and ears normal, oral cavity grossly normal. NECK: JVD not raised; masses not palpable. HEART: First and second heart sounds are normal; edema present. LUNGS: Respiratory rate normal; clear to auscultation. ABDOMEN: Soft, distended, nontender, liver spleen not palpable, no masses palpable. PSYCH: Alert and oriented x3; mood and affect normal. MUSCULOSKELETAL:No Clubbing/cyanosis;muscles-grossly intact NEUROLOGICAL: Cranial nerves grossly intact; no facial asymmetry, power and sensation: Some decreased sensation peripherally. INVESTIGATIONS, reviewed in the clinical context: White count 3.7 hemoglobin 11.5 platelets 160 sodium 136 potassium 5.2 BUN 36 creatinine 5.77 Assessment and plan: -Severe fluid overload.: Improving Daily hemodialysis. -Hypertensive heart disease -Secondary severe pulmonary hypertension -Severe tricuspid regurgitation Follow with cardiology - Large ascites secondary to cirrhosis: Continue Bumex . 4 L of thoracentesis. -Portal hypertension with hepatosplenomegaly secondary to cirrhosis Bumex -Cirrhosis secondary to fatty liver Patient does follow with Dr. Andrei Guaman Diabetes mellitus type 2, chronically on insulin. Uncontrolled with hyperglycemia. Cutback Levemir 26 units subcu daily at bedtime. And Humalog to 6 units before meals 3 times a day Accu-Chek. -End-stage kidney disease on hemodialysis Hemodialysis, Thursday. Nephrology consult -Hyperlipidemia Cardiac diet -Restless leg syndrome On Requip 1 mg twice a day -Essential hypertension Catapres 0.3 mg 3 times a day, , Lopressor 50 mg 3 times a day 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 renvela -Painful peripheral neuropathy: Better Neurontin to 200 mg at bedtime, 100 mg twice a day -Chronic insomnia from multiple medical problems Ambien 2.5 mg daily at bedtime Trouble with fistula access today. It'll be tried again. Discussed with patient. Other medications to continue. On those around her dialysis tomorrow.
[2021-08-02 20:47] LABS: Glucose,Whole Blood 133 mg/dL (75-99)
[2021-08-02] MEDS: LORATADINE 10 MG TAB PO SCH (21:18)
[2021-08-02] MEDS: INSULIN DETEMIR (LEVEMIR) 100 UNIT/ML SYR SQ SCH (21:19)
[2021-08-03] MEDS: MORPHINE SULFATE 2 MG/ML SYRINGE IV PRN ×2 (04:00→08:57)
[2021-08-03] MEDS: INSULIN ASPART (NovoLOG) 100 UNIT/ML VIAL SQ SCH ×2 (06:36→11:57)
[2021-08-03 06:37] LABS: Glucose,Whole Blood 111 mg/dL (75-99)
[2021-08-03] MEDS: SEVELAMER 800 MG TAB PO SCH ×2 (06:38→11:57)
[2021-08-03 08:21] LABS: Calcium 8.8 mg/dL (8.4-10.2)
[2021-08-03] MEDS: FAMOTIDINE 20 MG TAB PO SCH (08:38)
[2021-08-03] MEDS: METOPROLOL TARTRATE 50 MG TAB PO SCH (08:38)
[2021-08-03] MEDS: cloNIDine HCL 0.1 MG TAB PO SCH (08:38)
[2021-08-03] MEDS: GABAPENTIN 100 MG CAP PO SCH ×2 (08:38→11:57)
[2021-08-03] MEDS: LORATADINE 10 MG TAB PO SCH (08:38)
[2021-08-03 08:45] VITALS: RESP 16
--- NOTE | 2021-08-03 10:23 | US ---
EXAMINATION TYPE: US extremity nonvasc mass LT DATE OF EXAM: 08/03/2021 COMPARISON: NONE Exam done portable CLINICAL HISTORY: stenosis, possible blockage. Patient states they had a hard time accessing her fist jak for dialysis Left upper arm fistula appears patent with appropriate color Doppler flow. IMPRESSION: Patent appearing left upper arm fistula.
--- NOTE | 2021-08-03 11:07 | P.GSCN ---
History of Present Illness Consult date: 08/03/21 History of present illness: Patient is a 56-year-old female with a left upper extremity AV fistula. She is here in the hospital for volume overload and has been receiving multiple dialysis sessions. There has been a little bit of difficulty and this morning there unable to access it say that the fistula was thrombosed. She recently had outflow stenosis intervention earlier this month which was apparently successful at that time. She was able to go through the visible ultrafiltration yesterday Past Medical History Past Medical History: Blood Disorder, Coronary Artery Disease (CAD), Chest Pain / Angina, Heart Failure, COPD, Diabetes Mellitus, Dialysis, Hyperlipidemia, Hypertension, Liver Disease, Pneumonia, Renal Disease Additional Past Medical History / Comment(s): IDDM type II, past DKA, L retinal hemorrhages, chronic kidney disease/ESRD with hemodialysis, past acute kidney injury after pancreatitc surgery requring hemodialysis for 2 months, hypertriglyceridemia-induced acute pancreatitis, then necrotizing pancreatitis, abdominal ascities/paracentesis, UTI, chronic anemia, frequent body cramping, occasional low back pain, carter's palsy X2, past L leg fx, possible liver disease, pt states lately she has had bilateral leg/foot pain with ambulation. History of Any Multi-Drug Resistant Organisms: MRSA Year Discovered:: 08-02-20 MDRO Source:: Blood Past Surgical History: Cardiac Valve Replacement, Orthopedic Surgery, Uterine Ablation Additional Past Surgical History / Comment(s): Colonoscopy with polypectomy/biopsy, pancreatic resection at [facility] 2009, bone marrow biopsies X2, dialysis chest port X3 with removals, left arm shunt placement for dialysis and a revision done with shunt. Left forearm Vein Revision, liver biopsy, left arm fistula repair, mitral valve repacement 2019 at [facility],. left upper arm fistula 2020. paracentesis procedures, bilateral cataract removals/lens implants, then laser eye surgery to remove film on lenses, dental surgery. Past Anesthesia/Blood Transfusion Reactions: No Reported Reaction Additional Past Anesthesia/Blood Transfusion Reaction / Comm: Pt has received blood transfusions without reaction. Past Psychological History: No Psychological Hx Reported Smoking Status: Never smoker Past Alcohol Use History: None Reported Past Drug Use History: None Reported - Past Family History Brother(s) Family Medical History: No Reported History Mother Family Medical History: Cancer, Congestive Heart Failure (CHF), Diabetes Mellitus Additional Family Medical History / Comment(s): Throat cancer. Father Family Medical History: Hypertension Additional Family Medical History / Comment(s): Alcoholism. Medications and Allergies Home Medications Medication Instructions Recorded Confirmed Type cloNIDine HCL [Catapres] 0.3 mg PO TID 12/16/16 07/29/21 History hydrALAZINE HCL [Apresoline] 100 mg PO QID 12/14/18 07/29/21 History HYDROcodone/APAP 7.5-325MG [[place] 1 tab PO Q8H PRN 11/08/19 07/29/21 History 7.5-325] traMADol HCL [Ultram] 50 mg PO BID PRN 05/13/20 07/29/21 History Metoprolol Tartrate [Lopressor] 50 mg PO TID 07/09/20 07/29/21 History Omeprazole 20 mg PO BID 08/02/20 07/29/21 History Sevelamer [Renvela] 3,200 mg PO AC-TID 12/01/20 07/29/21 History Sevelamer [Renvela] 800 - 1,600 mg PO DAILY PRN 12/01/20 07/29/21 History Lidocaine-Prilocaine Cream [Emla 1 applic TOPICAL DIRECTED PRN 06/18/21 07/29/21 History Cream 2.5%/2.5%] Ondansetron [Zofran] 4 mg PO TID PRN 06/18/21 07/29/21 History Sodium Zirconium Cyclosilicate 10 gm PO SUMOWEFR 06/18/21 07/29/21 History [Lokelma] rOPINIRole HCL [Requip] 1 mg PO BID 06/18/21 07/29/21 History Bumetanide [BUMEX] 1 mg PO BID@0900,1400 07/08/21 07/29/21 History Gabapentin [Neurontin] 100 mg PO BID@0800,1200 07/08/21 07/29/21 History Gabapentin [Neurontin] 200 mg PO HS 07/08/21 07/29/21 History bisacodyL [Dulcolax] 10 mg PO HS 07/08/21 07/29/21 History Cinacalcet [Sensipar] 30 mg PO TUTHSA 07/29/21 07/29/21 History Melatonin 3 mg PO HS PRN 07/29/21 07/29/21 History INSULIN LISPRO (humaLOG) [humaLOG] 8 unit SQ AC-TID #0 08/02/21 07/29/21 Rx Insulin Glargine,Hum.rec.anlog 30 unit SQ HS #0 08/02/21 07/29/21 Rx [Lantus Solostar Pen] Allergies Allergy/AdvReac Type Severity Reaction Status Date / Time Anesthetics - Amide Type - Allergy cardiac Verified 07/29/21 20:20 Select A arrest Anesthetics - Andree Type- Allergy cardiac Verified 07/29/21 20:20 Parabens arrest hydromorphone [From Dilaudid] Allergy Swelling Verified 07/29/21 20:20 ciprofloxacin [From Cipro] AdvReac AFFECTED Verified 07/29/21 20:20 EYESIGHT ciprofloxacin HCl AdvReac AFFECTED Verified 07/29/21 20:20 [From Cipro] EYESIGHT Iodinated Contrast Media AdvReac RENAL Verified 07/29/21 20:20 FAILURE Surgical - Exam Vital Signs Temp Pulse Resp BP Pulse Ox 97.9 F 71 16 196/92 99 07/29/21 16:17 07/29/21 16:17 07/29/21 16:17 07/29/21 16:17 07/29/21 16:17 General is pleasant cooperative female in no acute distress. Heart is a regular. Lungs are clear. Abdomen is rotund. Left upper extremity with palpable thrill, somewhat pulsatile distally however good flow apparently through the fistula. Normal mood and affect. Cranial nerve II through XII grossly intact Results Stat ultrasound was reviewed. Patent fistula - Labs 08/01/21 06:56 08/03/21 08:00 Abnormal Lab Results - Last 24 Hours (Table) 08/02/21 08/02/21 08/02/21 Range/Units 11:34 16:11 20:28 Sodium (137-145) mmol/L Chloride (98-107) mmol/L BUN (7-17) mg/dL Creatinine (0.52-1.04) mg/dL Glucose (74-99) mg/dL POC Glucose (mg/dL) 142 H 158 H 133 H (75-99) mg/dL 08/03/21 08/03/21 Range/Units 06:35 08:00 Sodium 131 L (137-145) mmol/L Chloride 94 L (98-107) mmol/L BUN 33 H (7-17) mg/dL Creatinine 5.26 H (0.52-1.04) mg/dL Glucose 135 H (74-99) mg/dL POC Glucose (mg/dL) 111 H (75-99) mg/dL Diabetes panel 08/03/21 Range/Units 08:00 Sodium 131 L (137-145) mmol/L Potassium 5.0 (3.5-5.1) mmol/L Chloride 94 L (98-107) mmol/L Carbon Dioxide 30 (22-30) mmol/L BUN 33 H (7-17) mg/dL Creatinine 5.26 H (0.52-1.04) mg/dL Glucose 135 H (74-99) mg/dL Calcium 8.8 (8.4-10.2) mg/dL Calcium panel 08/03/21 Range/Units 08:00 Calcium 8.8 (8.4-10.2) mg/dL Pituitary panel 08/03/21 Range/Units 08:00 Sodium 131 L (137-145) mmol/L Potassium 5.0 (3.5-5.1) mmol/L Chloride 94 L (98-107) mmol/L Carbon Dioxide 30 (22-30) mmol/L BUN 33 H (7-17) mg/dL Creatinine 5.26 H (0.52-1.04) mg/dL Glucose 135 H (74-99) mg/dL Calcium 8.8 (8.4-10.2) mg/dL Adrenal panel 08/03/21 Range/Units 08:00 Sodium 131 L (137-145) mmol/L Potassium 5.0 (3.5-5.1) mmol/L Chloride 94 L (98-107) mmol/L Carbon Dioxide 30 (22-30) mmol/L BUN 33 H (7-17) mg/dL Creatinine 5.26 H (0.52-1.04) mg/dL Glucose 135 H (74-99) mg/dL Calcium 8.8 (8.4-10.2) mg/dL Assessment and Plan Assessment: Patent fistula, difficult access Plan: At this time the fistula appears patent. No current plans for intervention. Reattempt needle access. May try more proximally, there is an area of stenosis however if they're able to dialyze and longer pressure hold may be necessary
[2021-08-03 11:31] LABS: Glucose,Whole Blood 176 mg/dL (75-99)
--- NOTE | 2021-08-03 11:39 | P.PN ---
Subjective Progress Note Date: 08/03/21 Principal diagnosis: this is a 56-year-old female with ESRD who came in because of shortness of breath has been dialyzed 3 days in a row. She is currently comfortable on room air. attempted dialysis this morning was unsuccessful because of problem with her fistula she denies any fever chills cough shortness of breath nausea vomiting She is stable currently on room air. Objective - Vital Signs Vital signs: Vital Signs Temp 98.1 F 08/03/21 08:42 Pulse 59 L 08/03/21 08:42 Resp 16 08/03/21 08:42 BP 169/77 08/03/21 08:42 Pulse Ox 99 08/03/21 08:42 Intake & Output 08/02/21 08/03/21 08/03/21 18:59 06:59 18:59 Intake Total 660 450 Output Total 3500 100 Balance -2840 -100 450 Weight 73.7 kg Intake: IV 10 Invasive Line 1 10 Oral 360 440 Hemodialysis 300 Output: Urine 100 Hemodialysis 3500 Other: Voiding Method Toilet Toilet # Voids 1 on examination awake alert oriented comfortable HEENT exam no JVP no facial asymmetry. Lungs are clear to auscultation good air entry bilaterally Heart sounds unremarkable for any murmur rub gallop Abdomen soft nontender exam was minimal edema Neurologically awake alert oriented - Labs CBC & Chem 7: 08/01/21 06:56 08/03/21 08:00 Labs: Abnormal Lab Results - Last 24 Hours (Table) 08/02/21 08/02/21 08/03/21 Range/Units 16:11 20:28 06:35 Sodium (137-145) mmol/L Chloride (98-107) mmol/L BUN (7-17) mg/dL Creatinine (0.52-1.04) mg/dL Glucose (74-99) mg/dL POC Glucose (mg/dL) 158 H 133 H 111 H (75-99) mg/dL 08/03/21 08/03/21 Range/Units 08:00 11:29 Sodium 131 L (137-145) mmol/L Chloride 94 L (98-107) mmol/L BUN 33 H (7-17) mg/dL Creatinine 5.26 H (0.52-1.04) mg/dL Glucose 135 H (74-99) mg/dL POC Glucose (mg/dL) 176 H (75-99) mg/dL Assessment and Plan Assessment: impression 1. ESRD on dialysis Q this Thursday admitted with fluid overload currently stable and no evidence of pulmonary edema 2. Status post dialysis 3 days in a row. 3. This morning access cannulation ratio but asked to surgery has seen and feels it is no current problems Recommendation Patient could be discharged to be followed up in the dialysis unit.
[2021-08-03 11:48] VITALS: BP 180/82; PULSE 61; TEMP 98.4
--- NOTE | 2021-08-04 15:34 | P.DS ---
Providers Date of admission: 07/29/21 23:33 Expected date of discharge: 08/03/21 Attending physician: David Bragg Consults: 07/30/21 00:01 Consult Physician Routine Consulting Provider: Royal Jones Consult Reason/Comments: Renal Failure, Dialysis patient Do you want consulting provider notified?: Yes, Notify in am 07/30/21 00:03 Consult Physician Routine Consulting Provider: David Cole Consult Reason/Comments: Paracentesis Do you want consulting provider notified?: Yes, Notify in am 08/03/21 08:45 Consult Physician Routine Consulting Provider: Huy Rey Consult Reason/Comments: Fistula clotted Do you want consulting provider notified?: Yes Primary care physician: David Bragg [facility] Course: Chief Complaint: Chest pain This is a pleasant 56-year-old patient who follows with Dr. David Bragg. Chronic stable medical conditions include COPD, diabetes, end-stage kidney disease on hemodialysis with left arm fistula, hyperlipidemia hypertension and hypertriglyceridemia-induced acute pancreatitis, pancreatic resection at [facility] 2009. Patient had presented to the ER with fluid overload.. August 01: I'm rounding for Dr. David Bragg Patient was dialyzed yesterday and today. Had paracentesis is done the day before. Oral intake is fair. Had a bowel movement. Reclining in bed. August 02: I saw the patient earlier today. Having trouble difficulty with her access. Possible hemodialysis later today. Ultrafiltration also tomorrow. Edema coming down. August 03: Patient seen by vascular. Some stenosis present in the AV fistula. Not able to be having access. To follow-up in outpatient with vascular. Continue with dialysis. Cleared by nephrology for discharge. Past medical history to include: Diastolic heart failure, valvular heart disease status post mitral valve repair in the setting of endocarditis, end-stage kidney disease on hemodialysis, anemia, diabetes mellitus type, hyperlipidemia, hypertension, secondary pulmonary hypertension with renal bone disease, anemia of chronic kidney disease, fatty liver disease leading to cirrhosis with portal hypertension, ascites, acute kidney injury after pancreatic surgery requiring hemodialysis previously 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 No alcohol. . Family history: Cancer, CHF, diabetes Physical examination: VITAL SIGNS: 98.1, 59, 16, 169 with 77, 99% room air GENERAL: Sitting up in bed, comfortable, AV fistula left arm EYES: Pupils equal. Conjunctiva normal. HEENT: External appearance of nose and ears normal, oral cavity grossly normal. NECK: JVD not raised; masses not palpable. HEART: First and second heart sounds are normal; edema present. LUNGS: Respiratory rate normal; clear to auscultation. ABDOMEN: Soft, distended, nontender, liver spleen not palpable, no masses palpable. PSYCH: Alert and oriented x3; mood and affect normal. MUSCULOSKELETAL:No Clubbing/cyanosis;muscles-grossly intact NEUROLOGICAL: Cranial nerves grossly intact; no facial asymmetry, power and sensation: Some decreased sensation peripherally. INVESTIGATIONS, reviewed in the clinical context: White count 3.7 hemoglobin 11.5 platelets 160 sodium 136 potassium 5.2 BUN 36 creatinine 5.77 Assessment and plan: -Severe fluid overload.: Much improved Daily hemodialysis. -Hypertensive heart disease -Secondary severe pulmonary hypertension -Severe tricuspid regurgitation Follow with cardiology - Large ascites secondary to cirrhosis: Continue Bumex . 4 L of paracentesis -Portal hypertension with hepatosplenomegaly secondary to cirrhosis Bumex -Cirrhosis secondary to fatty liver Patient does follow with Dr. Andrei Guaman Diabetes mellitus type 2, chronically on insulin. Uncontrolled with hyperglycemia. Cutback Levemir 26 units subcu daily at bedtime. And Humalog to 6 units before meals 3 times a day Accu-Chek. -End-stage kidney disease on hemodialysis Hemodialysis, Thursday. Nephrology consult -Hyperlipidemia Cardiac diet -Restless leg syndrome On Requip 1 mg twice a day -Essential hypertension Catapres 0.3 mg 3 times a day, , Lopressor 50 mg 3 times a day 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 renvela -Painful peripheral neuropathy: Better Neurontin to 200 mg at bedtime, 100 mg twice a day -Chronic insomnia from multiple medical problems Ambien 2.5 mg daily at bedtime -Possible AV fistula stenosis. He wanted by vascular. No current intervention. He'll follow up outpatient. Good for dialysis access. Disposition: Home Plan - Discharge Summary Discharge Rx Participant: No New Discharge Prescriptions: Continue cloNIDine HCL [Catapres] 0.3 mg PO TID hydrALAZINE HCL [Apresoline] 100 mg PO QID HYDROcodone/APAP 7.5-325MG [[place] 7.5-325] 1 tab PO Q8H PRN PRN Reason: Pain traMADol HCL [Ultram] 50 mg PO BID PRN PRN Reason: Pain Metoprolol Tartrate [Lopressor] 50 mg PO TID Omeprazole 20 mg PO BID Sevelamer [Renvela] 800 - 1,600 mg PO DAILY PRN PRN Reason: WITH SNACKS Sevelamer [Renvela] 3,200 mg PO AC-TID Lidocaine-Prilocaine Cream [Emla Cream 2.5%/2.5%] 1 applic TOPICAL DIRECTED PRN PRN Reason: DIALYSIS Ondansetron [Zofran] 4 mg PO TID PRN PRN Reason: Nausea rOPINIRole HCL [Requip] 1 mg PO BID Sodium Zirconium Cyclosilicate [Lokelma] 10 gm PO SUMOWEFR Bumetanide [BUMEX] 1 mg PO BID@0900,1400 Cinacalcet [Sensipar] 30 mg PO TUTHSA bisacodyL [Dulcolax] 10 mg PO HS Gabapentin [Neurontin] 200 mg PO HS Gabapentin [Neurontin] 100 mg PO BID@0800,1200 Melatonin 3 mg PO HS PRN PRN Reason: Insomnia Changed INSULIN LISPRO (humaLOG) [humaLOG] 8 unit SQ AC-TID #0 Insulin Glargine,Hum.rec.anlog [Lantus Solostar Pen] 30 unit SQ HS #0 Discharge Medication List cloNIDine HCL [Catapres] 0.3 mg PO TID 12/16/16 [History] hydrALAZINE HCL [Apresoline] 100 mg PO QID 12/14/18 [History] HYDROcodone/APAP 7.5-325MG [[place] 7.5-325] 1 tab PO Q8H PRN 11/08/19 [History] traMADol HCL [Ultram] 50 mg PO BID PRN 05/13/20 [History] Metoprolol Tartrate [Lopressor] 50 mg PO TID 07/09/20 [History] Omeprazole 20 mg PO BID 08/02/20 [History] Sevelamer [Renvela] 3,200 mg PO AC-TID 12/01/20 [History] Sevelamer [Renvela] 800 - 1,600 mg PO DAILY PRN 12/01/20 [History] Lidocaine-Prilocaine Cream [Emla Cream 2.5%/2.5%] 1 applic TOPICAL DIRECTED PRN 06/18/21 [History] Ondansetron [Zofran] 4 mg PO TID PRN 06/18/21 [History] Sodium Zirconium Cyclosilicate [Lokelma] 10 gm PO SUMOWEFR 06/18/21 [History] rOPINIRole HCL [Requip] 1 mg PO BID 06/18/21 [History] Bumetanide [BUMEX] 1 mg PO BID@0900,1400 07/08/21 [History] Gabapentin [Neurontin] 100 mg PO BID@0800,1200 07/08/21 [History] Gabapentin [Neurontin] 200 mg PO HS 07/08/21 [History] bisacodyL [Dulcolax] 10 mg PO HS 07/08/21 [History] Cinacalcet [Sensipar] 30 mg PO TUTHSA 07/29/21 [History] Melatonin 3 mg PO HS PRN 07/29/21 [History] INSULIN LISPRO (humaLOG) [humaLOG] 8 unit SQ AC-TID #0 08/02/21 [Rx] Insulin Glargine,Hum.rec.anlog [Lantus Solostar Pen] 30 unit SQ HS #0 08/02/21 [Rx] Follow up Appointment(s)/Referral(s): David Bragg MD [Primary Care Provider] - 1-2 days Patient Instructions/Handouts: Chronic Kidney Disease (DC), Hyperkalemia (DC) Activity/Diet/Wound Care/Special Instructions: For out patient physical therapy, you will need a script from Dr. Bragg. Discharge Disposition: HOME SELF-CARE
== END 2021-08-03 12:48 | disposition home or self-care (01) | DRG 640 ==
LOC: EC 15:51 → 3SCARD 23:33
PROVIDERS: ADMIT Family Medicine; ATTEND Family Medicine
PROC: 0W9G3ZZ Drainage of Peritoneal Cavity, Percutaneous Approach (ICD-10-PCS; principal; 2021-07-30)
PROC: 5A1D70Z Performance of Urinary Filtration, Intermittent, Less than 6 Hours Per Day (ICD-10-PCS; 2021-07-30)
DX: E87.70 Fluid overload, unspecified (principal); N18.6 End stage renal disease; N17.9 Acute kidney failure, unspecified; I13.2 Hypertensive heart and chronic kidney disease with heart failure and with stage 5 chronic kidney disease, or end stage renal disease; I50.32 Chronic diastolic (congestive) heart failure; N39.0 Urinary tract infection, site not specified; R18.8 Other ascites; K76.6 Portal hypertension; K72.90 Hepatic failure, unspecified without coma; I27.29 Other secondary pulmonary hypertension; D63.1 Anemia in chronic kidney disease; E11.319 Type 2 diabetes mellitus with unspecified diabetic retinopathy without macular edema; E83.9 Disorder of mineral metabolism, unspecified; E11.22 Type 2 diabetes mellitus with diabetic chronic kidney disease; E11.42 Type 2 diabetes mellitus with diabetic polyneuropathy; K74.60 Unspecified cirrhosis of liver; E11.65 Type 2 diabetes mellitus with hyperglycemia; J44.9 Chronic obstructive pulmonary disease, unspecified; Z79.4 Long term (current) use of insulin; Z99.2 Dependence on renal dialysis; R16.2 Hepatomegaly with splenomegaly, not elsewhere classified; K76.0 Fatty (change of) liver, not elsewhere classified; N25.0 Renal osteodystrophy; E87.5 Hyperkalemia; I07.1 Rheumatic tricuspid insufficiency; G25.81 Restless legs syndrome; Z91.11 Patient's noncompliance with dietary regimen; E78.5 Hyperlipidemia, unspecified; E78.1 Pure hyperglyceridemia; M79.605 Pain in left leg; M79.604 Pain in right leg; I25.10 Atherosclerotic heart disease of native coronary artery without angina pectoris; M54.50 Low back pain, unspecified; F51.04 Psychophysiologic insomnia; Z79.899 Other long term (current) drug therapy; Z87.01 Personal history of pneumonia (recurrent); Z87.440 Personal history of urinary (tract) infections; Z87.81 Personal history of (healed) traumatic fracture; Z86.14 Personal history of Methicillin resistant Staphylococcus aureus infection; Z95.2 Presence of prosthetic heart valve; Z87.42 Personal history of other diseases of the female genital tract; Z87.19 Personal history of other diseases of the digestive system; Z98.42 Cataract extraction status, left eye; Z98.41 Cataract extraction status, right eye; Z96.1 Presence of intraocular lens; Z86.79 Personal history of other diseases of the circulatory system; Z86.69 Personal history of other diseases of the nervous system and sense organs; Z98.890 Other specified postprocedural states; Z88.5 Allergy status to narcotic agent; Z88.8 Allergy status to other drugs, medicaments and biological substances; Z88.4 Allergy status to anesthetic agent; Z88.1 Allergy status to other antibiotic agents; Z91.041 Radiographic dye allergy status; Z82.49 Family history of ischemic heart disease and other diseases of the circulatory system; Z83.3 Family history of diabetes mellitus; Z80.8 Family history of malignant neoplasm of other organs or systems; Z81.1 Family history of alcohol abuse and dependence
CPT/HCPCS: 36415; 49083; 71046; 80048; 80053; 81001; 83605; 83735; 83880; 84484; 85025; 85379; 85610; 87086; 90935; 93005; 96374; 96375; 99285

== ENCOUNTER 2021-10-07 15:31 | Inpatient (IN) | payer OTHER ==
[2021-10-07 18:15] LABS: Basophils % (A) 1 %; Eosinophils # (A) 0.1 k/uL (0-0.7); Eosinophils % (A) 1 %; HCT 37.2 % (34.0-46.0); HGB 11.4 gm/dL (11.4-16.0); Hypochromasia Slight; Lymphocytes # (A) 0.8 k/uL (1.0-4.8); Lymphocytes % (A) 13 %; MCH 30.3 pg (25.0-35.0); MCHC 30.7 g/dL (31.0-37.0); MCV 98.5 fL (80.0-100.0); Macrocytosis Slight; Mean Platelet Volume 8.4; Monocytes # (A) 0.3 k/uL (0-1.0); Monocytes % (A) 6 %; Neutrophils # (A) 4.4 k/uL (1.3-7.7); Neutrophils % (A) 78 %; Platelet Count 107 k/uL (150-450); RBC 3.78 m/uL (3.80-5.40); RDW 15.6 % (11.5-15.5); WBC 5.6 k/uL (3.8-10.6)
[2021-10-07 18:24] LABS: Albumin 4.7 g/dL (3.5-5.0); Calcium 8.9 mg/dL (8.4-10.2); Total Bilirubin 0.9 mg/dL (0.2-1.3); Total Protein 7.3 g/dL (6.3-8.2)
[2021-10-07 18:25] LABS: Potassium 7.8 mmol/L (3.5-5.1)
[2021-10-07] MEDS ORDERED: ASPIRIN 81 MG PO STA (18:37)
[2021-10-07] MEDS ORDERED: DEXTROSE 50% SYRINGE 50 ML IVP ONE (18:39)
[2021-10-07] MEDS ORDERED: CALCIUM GLUCONATE IN NACL 1 GM in SALINE 1 100ML.BAG IVPB ONE (18:39)
[2021-10-07] MEDS ORDERED: ALBUTEROL NEB (CONC) 2.5 MG/0.5 ML INHALATION ONE (18:39)
[2021-10-07] MEDS ORDERED: SODIUM POLYSTYRENE SULFONATE 15 GM/60 ML BOTTLE PO ONE (18:39)
[2021-10-07] MEDS ORDERED: INSULIN REGULAR 100 UNIT/ML VIAL (IV) IV ONE (18:39)
[2021-10-07] MEDS ORDERED: SODIUM BICARB 8.4% 50 ML SYR (1 MEQ/ML) IV ONE (18:39)
--- NOTE | 2021-10-07 20:05 | XR ---
EXAMINATION TYPE: XR chest 1V portable DATE OF EXAM: 10/07/2021 COMPARISON: 08/08/2021 HISTORY: Chest pain TECHNIQUE: FINDINGS: There are sternal wires. There is no gross heart failure. There is slight coarsening of int erstitial markings. Costophrenic angles are fairly clear. There are chest leads. IMPRESSION: Mild increased lung markings. No definite heart failure or pulmonary consolidation. Lung markings slightly increased compared to old exam.
--- NOTE | 2021-10-07 20:56 | ED ---
Weakness HPI - General Chief complaint: Weakness Stated complaint: Abnormal Labs/Weakness Time Seen by Provider: 10/07/21 18:23 Source: patient Mode of arrival: ambulatory Limitations: no limitations - History of Present Illness Initial comments: This 56-year-old female presents with a complaint of generalized weakness. She states that it is difficult for her to ambulate due to the degree of weakness that she has. This started over the last day. She does receive dialysis and last received it yesterday. She states that she does not feel as though they took off enough fluids. She complains of some shortness of breath at times. She did have a twinge of chest pain earlier today as well. This occurred when she was ambulating. She complains of lower extremity edema which is been present for last 2 weeks. She called her dialysis center today to tell them that she was not feeling well and they told her that her potassium was elevated yesterday around 6.0. She denies any fevers or chills. No other complaints or modifying factors. - Related Data Home Medications Medication Instructions Recorded Confirmed cloNIDine HCL [Catapres] 0.3 mg PO TID 12/16/16 10/07/21 hydrALAZINE HCL [Apresoline] 100 mg PO QID PRN 12/14/18 10/07/21 HYDROcodone/APAP 7.5-325MG [[place] 1 tab PO Q8H PRN 11/08/19 10/07/21 7.5-325] traMADol HCL [Ultram] 50 mg PO BID PRN 05/13/20 10/07/21 Omeprazole 20 mg PO HS 08/02/20 10/07/21 Sevelamer [Renvela] 3,200 mg PO AC-TID 12/01/20 10/07/21 Sevelamer [Renvela] 800 mg PO DAILY PRN 12/01/20 10/07/21 Lidocaine-Prilocaine Cream [Emla 1 applic TOPICAL DIRECTED PRN 06/18/21 10/07/21 Cream 2.5%/2.5%] Ondansetron [Zofran] 4 mg PO TID PRN 06/18/21 10/07/21 Sodium Zirconium Cyclosilicate 10 gm PO DAILY 06/18/21 10/07/21 [Lokelma] rOPINIRole HCL [Requip] 1 mg PO BID 06/18/21 10/07/21 Gabapentin [Neurontin] 100 mg PO BID@0800,1200 07/08/21 10/07/21 Gabapentin [Neurontin] 200 mg PO HS 07/08/21 10/07/21 Cinacalcet [Sensipar] 30 mg PO TUTHSA 07/29/21 10/07/21 Melatonin 3 mg PO HS PRN 07/29/21 10/07/21 Midodrine HCl [ProAmatine] 10 mg PO DAILY PRN 08/08/21 10/07/21 diazePAM [Valium] 5 mg PO HS PRN 08/08/21 10/07/21 Furosemide [Lasix] 80 mg PO BID 09/26/21 10/07/21 Insulin Glargine,Hum.rec.anlog 35 unit SQ HS 09/26/21 10/07/21 [Lantus Solostar Pen] Sennosides-Docusate Sodium 1 tab PO HS PRN 09/26/21 10/07/21 [Senokot-S] Ergocalciferol (Vitamin D2) 1,250 mcg PO RIVERA 10/07/21 10/07/21 [Drisdol (50,000 Iu)] Vit B Complx C/Folic Acid/Zinc 1 tab PO HS 10/07/21 10/07/21 [Renaplex Tablet] Previous Rx's Medication Instructions Recorded INSULIN LISPRO (humaLOG) [humaLOG] 8 unit SQ AC-TID #0 08/02/21 Metoprolol Tartrate [Lopressor] 50 mg PO BID #0 08/10/21 Allergies Allergy/AdvReac Type Severity Reaction Status Date / Time hydromorphone [From Dilaudid] Allergy Swelling Verified 10/07/21 20:26 Anesthetics - Amide Type - AdvReac cardiac Verified 10/07/21 20:26 Select A arrest Anesthetics - Andree Type- AdvReac cardiac Verified 10/07/21 20:26 Parabens arrest ciprofloxacin [From Cipro] AdvReac AFFECTED Verified 10/07/21 20:26 EYESIGHT ciprofloxacin HCl AdvReac AFFECTED Verified 10/07/21 20:26 [From Cipro] EYESIGHT Iodinated Contrast Media AdvReac RENAL Verified 10/07/21 20:26 FAILURE Review of Systems ROS Statement: Those systems with pertinent positive or pertinent negative responses have been documented in the HPI. ROS Other: All systems not noted in ROS Statement are negative. Past Medical History Past Medical History: Blood Disorder, Coronary Artery Disease (CAD), Chest Pain / Angina, Heart Failure, COPD, Diabetes Mellitus, Dialysis, Hyperlipidemia, Hypertension, Liver Disease, Pneumonia, Renal Disease Additional Past Medical History / Comment(s): Pt recently admitted to [facility] on 07/29/21 with fluid overload. She had paracentesis. Other Hx: IDDM type II, past DKA, L retinal hemorrhages, chronic kidney disease/ESRD with hemodialysis, mineral bone disease, portal htn with hepatosplenomegaly, past acute kidney injury after pancreatitc surgery requring hemodialysis for 2 months, hypertriglyceridemia-induced acute pancreatitis, then necrotizing pancreatitis, abdominal ascities/paracentesis/fatty liver/cirrhosis, pulmonary HTN, UTI, chron ic anemia, frequent body cramping, occasional low back pain, carter's palsy X2, past L leg fx, , pt states lately she has had bilateral leg/foot pain with ambulation, RLS, insomnia. History of Any Multi-Drug Resistant Organisms: MRSA Date of last positivie culture/infection: 08-02-20 MDRO Source:: Blood Past Surgical History: Cardiac Valve Replacement, Orthopedic Surgery, Uterine Ablation Additional Past Surgical History / Comment(s): Colonoscopy with polypectomy/biopsy, pancreatic resection at [facility] 2009, bone marrow biopsies X2, dialysis chest port X3 with removals, left arm shunt placement for dialysis and a revision done with shunt. Left forearm Vein Revision, liver biopsy, left arm fistula repair, mitral valve repacement 2019 [facility],. left upper arm fistula 2020. paracentesis procedures, bilateral cataract removals/lens implants, then laser eye surgery to remove film on lenses, dental surgery. Past Anesthesia/Blood Transfusion Reactions: No Reported Reaction Additional Past Anesthesia/Blood Transfusion Reaction / Comment(s): Pt allergic to Amide type anesthesia. Pt has received blood transfusions without reaction. Past Psychological History: Anxiety Smoking Status: Never smoker Past Alcohol Use History: None Reported Past Drug Use History: None Reported - Past Family History Brother(s) Family Medical History: No Reported History Mother Family Medical History: Cancer, Congestive Heart Failure (CHF), Diabetes Mellitus Additional Family Medical History / Comment(s): Throat cancer. Father Family Medical History: Hypertension Additional Family Medical History / Comment(s): Alcoholism. General Exam - General Exam Comments Initial Comments: GENERAL: The patient is well nourished and well hydrated. VITAL SIGNS: Heart rate, blood pressure, respiratory rate reviewed as recorded in nurse's notes. EYES: Pupils are round and reactive. Extraocular movements are intact. No conjunctival / lid redness or swelling. ENT: No external evidence of injury, swelling, or ecchymosis. Airway is patent. Throat is clear. NECK: Nontender. No swelling or evidence of injury. No subcutaneous emphysema. Trachea is midline. No thyroid mass. HEART: Regular rate and rhythm. Good peripheral pulses. Bilateral moderate lower extremity edema noted. LUNGS/CHEST: Breath sounds clear and equal bilaterally. No rales, rhonchi, or wheezes. No ecchymosis, subcutaneous emphysema, or tenderness. ABDOMEN: Abdomen soft without tenderness. No palpable masses or organomegaly. No peritoneal signs. No abdominal wall swelling or ecchymosis. EXTREMITIES: No extremity tenderness. Normal muscle tone and function. No thoracolumbar tenderness. NEUROLOGIC: Sensation is grossly intact. Cranial nerve exam reveals face is symmetrical, tongue is midline, speech is clear. SKIN: No abrasions or ecchymosis is noted. No induration or masses noted. Left AV graft noted upper extremity. PSYCHIATRIC: Alert and oriented. Appropriate behavior and judgment. Limitations: no limitations Course Vital Signs 10/07/21 10/07/21 10/07/21 16:13 19:48 21:30 Temperature 98.3 F 97.8 F Pulse Rate 73 74 64 Respiratory 16 12 12 Rate Blood Pressure 175/96 173/124 179/99 O2 Sat by Pulse 93 L 95 94 L Oximetry 10/07/21 22:11 Temperature Pulse Rate 66 Respiratory 16 Rate Blood Pressure 155/97 O2 Sat by Pulse 96 Oximetry Procedures - [place] Protocol (Time Out) Nurse: Maria Ines Zapata Medical Decision Making - Medical Decision Making The patient was seen and examined. Due to overcrowding she initially seen in the waiting room. Her EKG shows a sinus bradycardia at a rate of 45 with marked sinus arrhythmia and first-degree AV block. The DE intervals 216, QRS duration is 149, and the QTc interval is 463. The patient had laboratory drawn while in the waiting room and shows that her potassium is significantly elevated at 7.8. Her creatinine is elevated consistent with her history of chronic renal failure. The charge nurse was informed that patient needs to come back immediately as her potassium is extremely high. Medications for treatment of hyperkalemia are ordered immediately and this does include bicarbonate, insulin, glucose, alb uterol, and calcium. The chest x-ray does show some slight increased fluid as compared to prior. It is felt as though she would benefit from admission to the hospital. Internal medicine and nephrology or page. Case is discussed with Dr. Coleman from internal medicine and he is agreeable with admission. Case is discussed with nephrology as well and they recommend emergent dialysis. process control technician is being called in to do dialysis this evening. Patient is doing well on recheck. Approximately 35 minutes of critical care time is utilized and the treatment of the patient. Of note, her BNP is significantly elevated. Her potassium was redrawn and was down to 6.2 on recheck. Patient is admitted to the telemetry/stepdown unit. - Lab Data Result diagrams: 10/07/21 17:53 10/07/21 21:30 Lab Results 10/07/21 10/07/21 10/07/21 Range/Units 17:53 17:53 17:53 WBC 5.6 (3.8-10.6) k/uL RBC 3.78 L (3.80-5.40) m/uL Hgb 11.4 (11.4-16.0) gm/dL Hct 37.2 (34.0-46.0) % MCV 98.5 (80.0-100.0) fL MCH 30.3 (25.0-35.0) pg MCHC 30.7 L (31.0-37.0) g/dL RDW 15.6 H (11.5-15.5) % Plt Count 107 L (150-450) k/uL MPV 8.4 Neutrophils % 78 % Lymphocytes % 13 % Monocytes % 6 % Eosinophils % 1 % Basophils % 1 % Neutrophils # 4.4 (1.3-7.7) k/uL Lymphocytes # 0.8 L (1.0-4.8) k/uL Monocytes # 0.3 (0-1.0) k/uL Eosinophils # 0.1 (0-0.7) k/uL Basophils # 0.0 (0-0.2) k/uL Hypochromasia Slight Macrocytosis Slight PT (9.0-12.0) sec INR (<1.2) APTT (22.0-30.0) sec Sodium 134 L (137-145) mmol/L Potassium 7.8 H* (3.5-5.1) mmol/L Chloride 97 L (98-107) mmol/L Carbon Dioxide 20 L (22-30) mmol/L Anion Gap 17 mmol/L BUN 72 H (7-17) mg/dL Creatinine 8.28 H* (0.52-1.04) mg/dL Est GFR (CKD-EPI)AfAm 6 (>60 ml/min/1.73 sqM) Est GFR (CKD-EPI)NonAf 5 (>60 ml/min/1.73 sqM) Glucose 124 H (74-99) mg/dL POC Glucose (mg/dL) (75-99) mg/dL POC Glu Assistant Brand Manager ID Calcium 8.9 (8.4-10.2) mg/dL Magnesium 1.9 (1.6-2.3) mg/dL Total Bilirubin 0.9 (0.2-1.3) mg/dL AST 22 (14-36) U/L ALT 11 (4-34) U/L Alkaline Phosphatase 105 (38-126) U/L Troponin I (0.000-0.034) ng/mL NT-Pro-B Natriuret Pep pg/mL Total Protein 7.3 (6.3-8.2) g/dL Albumin 4.7 (3.5-5.0) g/dL 10/07/21 10/07/21 10/07/21 Range/Units 17:53 17:53 21:30 WBC (3.8-10.6) k/uL RBC (3.80-5.40) m/uL Hgb (11.4-16.0) gm/dL Hct (34.0-46.0) % MCV (80.0-100.0) fL MCH (25.0-35.0) pg MCHC (31.0-37.0) g/dL RDW (11.5-15.5) % Plt Count (150-450) k/uL MPV Neutrophils % % Lymphocytes % % Monocytes % % Eosinophils % % Basophils % % Neutrophils # (1.3-7.7) k/uL Lymphocytes # (1.0-4.8) k/uL Monocytes # (0-1.0) k/uL Eosinophils # (0-0.7) k/uL Basophils # (0-0.2) k/uL Hypochromasia Macrocytosis PT 11.4 (9.0-12.0) sec INR 1.1 (<1.2) APTT 23.1 (22.0-30.0) sec Sodium (137-145) mmol/L Potassium (3.5-5.1) mmol/L Chloride (98-107) mmol/L Carbon Dioxide (22-30) mmol/L Anion Gap mmol/L BUN (7-17) mg/dL Creatinine (0.52-1.04) mg/dL Est GFR (CKD-EPI)AfAm (>60 ml/min/1.73 sqM) Est GFR (CKD-EPI)NonAf (>60 ml/min/1.73 sqM) Glucose (74-99) mg/dL POC Glucose (mg/dL) (75-99) mg/dL POC Glu Assistant Brand Manager ID Calcium (8.4-10.2) mg/dL Magnesium (1.6-2.3) mg/dL Total Bilirubin (0.2-1.3) mg/dL AST (14-36) U/L ALT (4-34) U/L Alkaline Phosphatase (38-126) U/L Troponin I 0.031 (0.000-0.034) ng/mL NT-Pro-B Natriuret Pep 41331 pg/mL Total Protein (6.3-8.2) g/dL Albumin (3.5-5.0) g/dL 10/07/21 10/07/21 10/07/21 Range/Units 21:30 21:30 21:34 WBC (3.8-10.6) k/uL RBC (3.80-5.40) m/uL Hgb (11.4-16.0) gm/dL Hct (34.0-46.0) % MCV (80.0-100.0) fL MCH (25.0-35.0) pg MCHC (31.0-37.0) g/dL RDW (11.5-15.5) % Plt Count (150-450) k/uL MPV Neutrophils % % Lymphocytes % % Monocytes % % Eosinophils % % Basophils % % Neutrophils # (1.3-7.7) k/uL Lymphocytes # (1.0-4.8) k/uL Monocytes # (0-1.0) k/uL Eosinophils # (0-0.7) k/uL Basophils # (0-0.2) k/uL Hypochromasia Macrocytosis PT (9.0-12.0) sec INR (<1.2) APTT (22.0-30.0) sec Sodium 135 L (137-145) mmol/L Potassium 6.2 H* (3.5-5.1) mmol/L Chloride 98 (98-107) mmol/L Carbon Dioxide 22 (22-30) mmol/L Anion Gap 15 mmol/L BUN (7-17) mg/dL Creatinine (0.52-1.04) mg/dL Est GFR (CKD-EPI)AfAm (>60 ml/min/1.73 sqM) Est GFR (CKD-EPI)NonAf (>60 ml/min/1.73 sqM) Glucose (74-99) mg/dL POC Glucose (mg/dL) 90 (75-99) mg/dL POC Glu Assistant Brand Manager ID Mirella Terrell Calcium (8.4-10.2) mg/dL Magnesium (1.6-2.3) mg/dL Total Bilirubin (0.2-1.3) mg/dL AST (14-36) U/L ALT (4-34) U/L Alkaline Phosphatase (38-126) U/L Troponin I 0.031 (0.000-0.034) ng/mL NT-Pro-B Natriuret Pep pg/mL Total Protein (6.3-8.2) g/dL Albumin (3.5-5.0) g/dL Disposition Clinical Impression: Hyperkalemia, Lower extremity edema, Dyspnea, Fluid overload, Chronic kidney disease with end stage renal failure on dialysis Disposition: ADMITTED IP TO THIS HOSP Condition: Fair Is patient prescribed a controlled substance at d/c from ED?: No Referrals: David rBagg MD [Primary Care Provider] - 1-2 days Time of Disposition: 20:30 Decision Date: 10/07/21 Decision Time: 20:30
[2021-10-07] MEDS ORDERED: ONDANSETRON 4 MG/2 ML VIAL IVP PRN (21:02)
[2021-10-07] MEDS ORDERED: hydrALAZINE HCL 50 MG TAB PO PRN (21:08)
[2021-10-07] MEDS ORDERED: traMADol 50 MG TAB PO PRN (21:08)
[2021-10-07] MEDS ORDERED: MELATONIN 3 MG TABLET PO PRN (21:08)
[2021-10-07] MEDS ORDERED: SENNOSIDES-DOCUSATE SODIUM 1 EACH TAB PO PRN (21:08)
[2021-10-07] MEDS ORDERED: MIDODRINE 5 MG TAB PO PRN (21:08)
[2021-10-07] MEDS ORDERED: diazePAM 5 MG TAB PO PRN (21:08)
[2021-10-07] MEDS ORDERED: SEVELAMER 800 MG TAB PO PRN (21:08)
[2021-10-07 21:36] LABS: Glucose,Whole Blood 90 mg/dL (75-99)
[2021-10-07] MEDS: HYDROcodone/APAP 7.5-325MG 1 EACH TAB PO PRN (21:38)
[2021-10-07 21:53] LABS: Potassium 6.2 mmol/L (3.5-5.1)
[2021-10-07 22:00] LABS: INR 1.1 (<1.2); Partial Thromboplastin Time 23.1 sec (22.0-30.0); Prothrombin Time 11.4 sec (9.0-12.0)
[2021-10-07] MEDS: cloNIDine HCL 0.2 MG TAB PO SCH (22:00)
[2021-10-08 06:42] LABS: Calcium 8.4 mg/dL (8.4-10.2); Potassium 5.4 mmol/L (3.5-5.1)
[2021-10-08 08:48] LABS: Glucose,Whole Blood 134 mg/dL (75-99)
[2021-10-08] MEDS: INSULIN ASPART (NovoLOG) 100 UNIT/ML VIAL SQ SCH ×3 (08:48→17:58)
[2021-10-08] MEDS: ENOXAPARIN 40 MG/0.4 ML SYRINGE SQ SCH (08:49)
[2021-10-08] MEDS: SEVELAMER 800 MG TAB PO SCH ×3 (08:49→17:57)
[2021-10-08] MEDS: cloNIDine HCL 0.2 MG TAB PO SCH ×2 (08:50→17:58)
[2021-10-08] MEDS: HYDROcodone/APAP 7.5-325MG 1 EACH TAB PO PRN ×3 (08:50→21:38)
[2021-10-08] MEDS: METOPROLOL TARTRATE 50 MG TAB PO SCH ×2 (08:50→21:40)
[2021-10-08] MEDS: GABAPENTIN 100 MG CAP PO SCH ×3 (08:50→21:38)
[2021-10-08] MEDS: FUROSEMIDE 80 MG TAB PO SCH ×2 (08:50→21:40)
[2021-10-08] MEDS: SODIUM ZIRCONIUM CYCLOSILICATE 10 GM PACKET PO SCH (08:51)
[2021-10-08] MEDS ORDERED: CINACALCET 30 MG TAB PO SCH (09:00)
[2021-10-08] MEDS ORDERED: LIDOCAINE-PRILOCAINE 2.5-2.5% CREAM 5 GM TUBE TOPICAL PRN (09:00)
--- NOTE | 2021-10-08 11:55 | P.NPCON ---
History of Present Illness - Reason for Consult end stage renal disease - History of Present Illness Patient is a 56-year-old female with end-stage renal disease on hemodialysis on a Thursday schedule at the [place] dialysis unit. Patient is admitted to the hospital with complaints of increased weakness and shortness of breath. Patient was noted to have a serum potassium of 7.8 last night. She was dialyzed last night and his going to be dialyzed again today. Patient has also been volume overloaded. We had 2 L of ultrafiltration last night and we will try 3-4 L of UF again today. No complaints of fevers, chills, nausea, vomiting. No complaints of abdominal pain or diarrhea. Patient reports that she has not missed any dialysis treatments. Review of Systems As per HPI Past Medical History Past Medical History: Blood Disorder, Coronary Artery Disease (CAD), Chest Pain / Angina, Heart Failure, COPD, Diabetes Mellitus, Dialysis, Hyperlipidemia, Hypertension, Liver Disease, Pneumonia, Renal Disease Additional Past Medical History / Comment(s): Pt admitted to [facility] on 07/29/21 with fluid overload. She had paracentesis. Other Hx: IDDM type II, past DKA, L retinal hemorrhages, chronic kidney disease/ESRD with hemodialysis, mineral bone disease, portal htn with hepatosplenomegaly, past acute kidney injury after pancreatitc surgery requring hemodialysis for 2 months, hypertrig lyceridemia-induced acute pancreatitis, then necrotizing pancreatitis, abdominal ascities/paracentesis/fatty liver/cirrhosis, pulmonary HTN, UTI, chronic anemia, frequent body cramping, occasional low back pain, carter's palsy X2, past L leg fx, , pt states lately she has had bilateral leg/foot pain with ambulation, RLS, insomnia. History of Any Multi-Drug Resistant Organisms: MRSA Date of last positivie culture/infection: 08-02-20 MDRO Source:: Blood Past Surgical History: Cardiac Valve Replacement, Orthopedic Surgery, Uterine Ablation Additional Past Surgical History / Comment(s): Colonoscopy with polypectomy/biopsy, pancreatic resection at [facility] 2009, bone marrow biopsies X2, dialysis chest port X3 with removals, left arm shunt placement for dialysis and a revision done with shunt. Left forearm Vein Revision, liver biopsy, left arm fistula repair, mitral valve repacement 2019 at [facility], current working left upper arm fistula 2020. paracentesis procedures, bilateral cataract removals/lens implants, then laser eye surgery to remove film on lenses, dental surgery. Past Anesthesia/Blood Transfusion Reactions: No Reported Reaction Additional Past Anesthesia/Blood Transfusion Reaction / Comment(s): Pt allergic to Amide type anesthesia. Pt has received blood transfusions without reaction. Past Psychological History: Anxiety Additional Psychological History / Comment(s): Pt resides at her mother in laws home at this time with spouse. They are her mother in laws caretakers. 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 She is otherwise independent. She uses no assistive device. Smoking Status: Never smoker Past Alcohol Use History: None Reported Additional Past Alcohol Use History / Comment(s): Patient is a lifelong nonsmoker. Past Drug Use History: None Reported Additional Drug Use History / Comment(s): Pt states, "I rarely drink a wine cooler." - Past Family History Brother(s) Family Medical History: No Reported History Mother Family Medical History: Cancer, Congestive Heart Failure (CHF), Diabetes Mellitus Additional Family Medical History / Comment(s): Throat cancer. Father Family Medical History: Hypertension Additional Family Medical History / Comment(s): Alcoholism. Medications and Allergies Home Medications Medication Instructions Recorded Confirmed Type cloNIDine HCL [Catapres] 0.3 mg PO TID 12/16/16 10/07/21 History hydrALAZINE HCL [Apresoline] 100 mg PO QID PRN 12/14/18 10/07/21 History HYDROcodone/APAP 7.5-325MG [[place] 1 tab PO Q8H PRN 11/08/19 10/07/21 History 7.5-325] traMADol HCL [Ultram] 50 mg PO BID PRN 05/13/20 10/07/21 History Omeprazole 20 mg PO HS 08/02/20 10/07/21 History Sevelamer [Renvela] 3,200 mg PO AC-TID 12/01/20 10/07/21 History Sevelamer [Renvela] 800 mg PO DAILY PRN 12/01/20 10/07/21 History Lidocaine-Prilocaine Cream [Emla 1 applic TOPICAL DIRECTED PRN 06/18/21 10/07/21 History Cream 2.5%/2.5%] Ondansetron [Zofran] 4 mg PO TID PRN 06/18/21 10/07/21 History Sodium Zirconium Cyclosilicate 10 gm PO DAILY 06/18/21 10/07/21 History [Lokelma] rOPINIRole HCL [Requip] 1 mg PO BID 06/18/21 10/07/21 History Gabapentin [Neurontin] 100 mg PO BID@0800,1200 07/08/21 10/07/21 History Gabapentin [Neurontin] 200 mg PO HS 07/08/21 10/07/21 History Cinacalcet [Sensipar] 30 mg PO TUTHSA 07/29/21 10/07/21 History Melatonin 3 mg PO HS PRN 07/29/21 10/07/21 History INSULIN LISPRO (humaLOG) [humaLOG] 8 unit SQ AC-TID #0 08/02/21 10/07/21 Rx Midodrine HCl [ProAmatine] 10 mg PO DAILY PRN 08/08/21 10/07/21 History diazePAM [Valium] 5 mg PO HS PRN 08/08/21 10/07/21 History Metoprolol Tartrate [Lopressor] 50 mg PO BID #0 08/10/21 10/07/21 Rx Furosemide [Lasix] 80 mg PO BID 09/26/21 10/07/21 History Insulin Glargine,Hum.rec.anlog 35 unit SQ HS 09/26/21 10/07/21 History [Lantus Solostar Pen] Sennosides-Docusate Sodium 1 tab PO HS PRN 09/26/21 10/07/21 History [Senokot-S] Ergocalciferol (Vitamin D2) 1,250 mcg PO RIVERA 10/07/21 10/07/21 History [Drisdol (50,000 Iu)] Vit B Complx C/Folic Acid/Zinc 1 tab PO HS 10/07/21 10/07/21 History [Renaplex Tablet] Allergies Allergy/AdvReac Type Severity Reaction Status Date / Time hydromorphone [From Dilaudid] Allergy Swelling Verified 10/07/21 20:26 Anesthetics - Amide Type - AdvReac cardiac Verified 10/07/21 20:26 Select A arrest Anesthetics - Andree Type- AdvReac cardiac Verified 10/07/21 20:26 Parabens arrest ciprofloxacin [From Cipro] AdvReac AFFECTED Verified 10/07/21 20:26 EYESIGHT ciprofloxacin HCl AdvReac AFFECTED Verified 10/07/21 20:26 [From Cipro] EYESIGHT Iodinated Contrast Media AdvReac RENAL Verified 10/07/21 20:26 FAILURE Physical Exam Vitals: Vital Signs Temp Pulse Resp BP Pulse Ox 10/08/21 09:00 55 L 15 171/110 94 L 10/08/21 06:26 64 13 165/78 98 10/08/21 04:42 100 12 145/82 100 10/08/21 01:51 67 17 148/77 96 10/08/21 01:10 68 13 126/64 95 10/07/21 23:32 58 L 13 143/76 92 L 10/07/21 22:11 66 16 155/97 96 10/07/21 21:30 64 12 179/99 94 L 10/07/21 19:48 97.8 F 74 12 173/124 95 10/07/21 16:13 98.3 F 73 16 175/96 93 L Intake and Output 10/07/21 10/08/21 10/08/21 22:59 06:59 14:59 Output Total 1999 Balance -1999 Output: Hemodialysis 1999 Other: Weight 81.647 kg Patient is awake, comfortable, not in any acute distress Examination of the heart S1 and S2 Exertion lungs bilateral breath sounds are heard decreased breath sounds at the bases Abdomen is soft nontender Examination of the lower extremities shows chronic edema with chronic skin changes. 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 End-stage renal disease on hemodialysis on a Thursday schedule 2. Severe volume overload 3. Severe hyperkalemia currently improved post dialysis 4. CK D mineral bone disorder 5. History of chronic liver disease and recurrent ascites with frequent paracentesis as outpatient Plan: Hemodialysis today and then repeat again in a.m. with increase UF of 3-4 L as tolerated Renal diet
[2021-10-08 13:12] LABS: Glucose,Whole Blood 110 mg/dL (75-99)
[2021-10-08] MEDS: ACETAMINOPHEN TAB 325 MG TAB PO PRN (13:13)
[2021-10-08 16:46] LABS: Glucose,Whole Blood 243 mg/dL (75-99)
--- NOTE | 2021-10-08 18:23 | HP ---
HISTORY AND PHYSICAL This 56-year-old white female was complaining of generalized weakness, fatigue; dialysis yesterday did not take off enough fluid. She came in with shortness of breath. She was admitted to the hospital with fluid overload. Waiting for Nephrology. For home medicines, see list. ALLERGIES: Please see list. They were reviewed. Medicines were reviewed. PAST MEDICAL HISTORY: Coronary artery disease, COPD, diabetes mellitus, end-stage renal disease, hypertension, dyslipidemia, liver disease, renal disease, chronic anemia. PAST SURGICAL HISTORY: Cardiac valve surgery, orthopedic surgery, uterine ablation. FAMILY HISTORY: See list. PHYSICAL EXAMINATION: White female. No acute distress. Fluid overload. She has generalized edema. Neurologic: Cranial nerves intact. Skin: Dry skin turgor. Increased edema x4. Psych fair mood and affect. Heart S1, S2. Lungs: Rales at the base. Temperature 97 to 98. Pulse 60s to 70s. Blood pressure is 170s over 90s to 110 to 125. ASSESSMENT: 1. Hypertension acceleration. 2. Fluid overload. 3. Mild hyponatremia. 4. Severe hyperkalemia, potassium 6.2. Nephrology consult. Diuresis. Prognosis is guarded. She also has borderline cirrhosis. Wait for Nephrology's recommendations. MMODL / IJN: [id number] /
[2021-10-08 18:33] LABS: INR 1.1 (<1.2); Prothrombin Time 11.6 sec (9.0-12.0)
[2021-10-08] MEDS ORDERED: PANTOPRAZOLE 40 MG TABLET PO SCH (21:00)
[2021-10-08] MEDS ORDERED: GABAPENTIN 100 MG CAP PO SCH (21:00)
[2021-10-08] MEDS ORDERED: FOLIC ACID-VIT B COMPLEX-VIT C 1 CAP PO SCH (21:00)
[2021-10-08] MEDS ORDERED: INSULIN DETEMIR (LEVEMIR) 100 UNIT/ML SYR SQ SCH (21:00)
[2021-10-08 22:05] LABS: Glucose,Whole Blood 249 mg/dL (75-99)
[2021-10-09] MEDS: cloNIDine HCL 0.2 MG TAB PO SCH ×3 (02:44→16:50)
[2021-10-09 07:23] LABS: Glucose,Whole Blood 174 mg/dL (75-99)
[2021-10-09 07:41] VITALS: TEMP 98.1
[2021-10-09] MEDS: GABAPENTIN 100 MG CAP PO SCH ×2 (07:46→15:46)
[2021-10-09] MEDS: ENOXAPARIN 40 MG/0.4 ML SYRINGE SQ SCH (07:46)
[2021-10-09] MEDS: SODIUM ZIRCONIUM CYCLOSILICATE 10 GM PACKET PO SCH (07:46)
[2021-10-09] MEDS: INSULIN ASPART (NovoLOG) 100 UNIT/ML VIAL SQ SCH ×3 (07:46→16:50)
[2021-10-09] MEDS: FUROSEMIDE 80 MG TAB PO SCH (07:47)
[2021-10-09] MEDS: METOPROLOL TARTRATE 50 MG TAB PO SCH (07:47)
[2021-10-09] MEDS: SEVELAMER 800 MG TAB PO SCH ×3 (07:47→16:49)
[2021-10-09 09:20] LABS: African American GFR (CKD) 9.2 (60.0-200.0); Albumin 4.2 g/dL (3.8-4.9); Albumin/Globulin Ratio 1.75 (1.60-3.17); Anion Gap 14.8 mmol/L (10.00-18.00); BUN/Creat Ratio 6.98 Ratio (12.00-20.00); Blood Urea Nitrogen 39.1 mg/dL (9.0-27.0); Calcium 8.6 mg/dL (8.7-10.3); Carbon Dioxide 25.2 mmol/L (20.0-27.5); Globulin 2.4 g/dL (1.6-3.3); Total Bilirubin 0.4 mg/dL (0.30-1.20); Total Protein 6.6 g/dL (6.2-8.2)
[2021-10-09] MEDS: ACETAMINOPHEN TAB 325 MG TAB PO PRN (09:53)
[2021-10-09 10:09] LABS: Basophils # (A) 0.01 X 10*3/uL (0.00-0.10); Basophils % (A) 0.4 %; Eosinophils # (A) 0.06 X 10*3/uL (0.04-0.35); Eosinophils % (A) 2.1 %; Immature Grans, Automated 0.7 %; Lymphocytes # (A) 0.47 X 10*3/uL (0.90-5.00); Lymphocytes % (A) 16.7 %; MCH 29.9 pg (27.0-32.0); MCV 99.7 fL (80.0-97.0); Mean Platelet Volume 10.3 fL (9.5-12.2); Monocytes # (A) 0.26 X 10*3/uL (0.20-1.00); Monocytes % (A) 9.2 %; NRBC Per 100 WBC 0 /100 WBCS (0.0-0.0); Neutrophils % (A) 70.9 %; Platelet Count 87 X 10*3/uL (140-440); RBC 3.01 X 10*6/uL (4.10-5.20); RDW 15.4 % (11.5-14.5); WBC 2.82 X 10*3/uL (4.50-10.00)
[2021-10-09 10:49] VITALS: RESP 16
--- NOTE | 2021-10-09 11:37 | US ---
EXAMINATION TYPE: US abdomen limited DATE OF EXAM: 10/09/2021 COMPARISON: NONE CLINICAL HISTORY: cirrhosis/ascites. Ascites seen within all 4 quadrants IMPRESSION: Small to moderate amount of ascites.
[2021-10-09 12:19] LABS: Glucose,Whole Blood 96 mg/dL (75-99)
--- NOTE | 2021-10-09 13:08 | US ---
EXAMINATION TYPE: US paracentesis abd w/image DATE OF EXAM: 10/09/2021 COMPARISON: NONE HISTORY: Ascites. PROCEDURE: Maximal barrier technique was utilized. The skin overlying a suitable pocket of fluid was localized with ultrasound and the overlying skin was prepped and draped. Ultrasound was utilized with sterile technique. Lidocaine was used for local anesthesia and a skin sheryl made with a scalpel. Catheter was advanced under direct ultrasound guidance into a suitable pocket of fluid and approximately 3.7 liter s of ascitic fluid were removed. Catheter was withdrawn and hemostasis achieved. There is no immedi ate complication; the patient is discharged in stable condition. IMPRESSION: STATUS POST ULTRASOUND GUIDED PARACENTESIS FOR PALLIATION OF ASCITES. THIS PROCEDURE WA S PERFORMED BY THE UNDERSIGNED.
[2021-10-09 13:55] VITALS: PULSE 57
[2021-10-09 15:49] VITALS: BP 147/72
[2021-10-09 16:31] LABS: Glucose,Whole Blood 146 mg/dL (75-99)
[2021-10-10] MEDS ORDERED: ENOXAPARIN 30 MG/0.3 ML SYRINGE SQ SCH (09:00)
[2021-10-13] MEDS ORDERED: ERGOCALCIFEROL 1,250 MCG (50,000 IU) CAPSULE PO SCH (09:00)
== END 2021-10-09 20:36 | disposition home or self-care (01) | DRG 291 ==
LOC: EC 15:31 → 3SCARD 21:03 → 4SSUR 10-08 13:19
PROVIDERS: ADMIT Family Medicine; ATTEND Family Medicine
PROC: 5A1D70Z Performance of Urinary Filtration, Intermittent, Less than 6 Hours Per Day (ICD-10-PCS; principal; 2021-10-08)
PROC: 0W9G30Z Drainage of Peritoneal Cavity with Drainage Device, Percutaneous Approach (ICD-10-PCS; 2021-10-09)
DX: I13.2 Hypertensive heart and chronic kidney disease with heart failure and with stage 5 chronic kidney disease, or end stage renal disease (principal); N18.6 End stage renal disease; K76.6 Portal hypertension; E87.1 Hypo-osmolality and hyponatremia; I25.10 Atherosclerotic heart disease of native coronary artery without angina pectoris; I50.9 Heart failure, unspecified; I27.20 Pulmonary hypertension, unspecified; I44.0 Atrioventricular block, first degree; E11.22 Type 2 diabetes mellitus with diabetic chronic kidney disease; G25.81 Restless legs syndrome; G51.0 Bell's palsy; E87.5 Hyperkalemia; E78.5 Hyperlipidemia, unspecified; J44.9 Chronic obstructive pulmonary disease, unspecified; D64.9 Anemia, unspecified; G47.00 Insomnia, unspecified; K74.60 Unspecified cirrhosis of liver; E78.1 Pure hyperglyceridemia; K76.0 Fatty (change of) liver, not elsewhere classified; M89.9 Disorder of bone, unspecified; Z79.4 Long term (current) use of insulin; Z79.899 Other long term (current) drug therapy; Z80.8 Family history of malignant neoplasm of other organs or systems; Z82.49 Family history of ischemic heart disease and other diseases of the circulatory system; Z83.3 Family history of diabetes mellitus; Z95.2 Presence of prosthetic heart valve; Z96.1 Presence of intraocular lens; Z99.2 Dependence on renal dialysis; Z98.42 Cataract extraction status, left eye; Z98.41 Cataract extraction status, right eye; Z87.01 Personal history of pneumonia (recurrent); Z88.8 Allergy status to other drugs, medicaments and biological substances; Z88.5 Allergy status to narcotic agent; Z91.041 Radiographic dye allergy status
CPT/HCPCS: 36415; 49083; 71045; 76705; 80048; 80051; 80053; 83735; 83880; 84484; 85025; 85610; 85730; 88108; 88305; 90935; 93005; 96365; 96375; 99291

== ENCOUNTER 2021-11-30 09:54 | Observation (INO) | payer MEDICARE, OTHER ==
--- NOTE | 2021-11-30 10:06 | ED ---
Chest Pain HPI - General Stated Complaint: chest pain Time Seen by Provider: 11/30/21 09:54 Source: patient, EMS, RN notes reviewed, old records reviewed Mode of arrival: EMS - History of Present Illness Initial Comments: 56-year-old female history of bypass surgery in 2019 also history of renal dialysis kidney failure who is about 2 and half hours into her dialysis today of bleeding normally 4 hours she started developing sharp upper right chest pain was rather persistent. Moderate severity. EMS was called she was given aspirin the pain resolved upon arrival tonight at the emergency department. She also states she's been having episodes of shortness of breath especially at night when she tries to sleep with a cough. The coughing shortness of breath started after starting using an air conditioner between 2 and 4 weeks ago she states. She has no phlegm production when she coughs. No other current complaints or modifying factors. She may have had pain like this prior to her bypass surgery. MD Complaint: chest pain, other - Related Data Home Medications Medication Instructions Recorded Confirmed cloNIDine HCL [Catapres] 0.3 mg PO TID 12/16/16 10/07/21 hydrALAZINE HCL [Apresoline] 100 mg PO QID PRN 12/14/18 10/07/21 HYDROcodone/APAP 7.5-325MG [[place] 1 tab PO Q8H PRN 11/08/19 10/07/21 7.5-325] traMADol HCL [Ultram] 50 mg PO BID PRN 05/13/20 10/07/21 Omeprazole 20 mg PO HS 08/02/20 10/07/21 Sevelamer [Renvela] 3,200 mg PO AC-TID 12/01/20 10/07/21 Sevelamer [Renvela] 800 mg PO DAILY PRN 12/01/20 10/07/21 Lidocaine-Prilocaine Cream [Emla 1 applic TOPICAL DIRECTED PRN 06/18/21 10/07/21 Cream 2.5%/2.5%] Ondansetron [Zofran] 4 mg PO TID PRN 06/18/21 10/07/21 Sodium Zirconium Cyclosilicate 10 gm PO DAILY 06/18/21 10/07/21 [Lokelma] rOPINIRole HCL [Requip] 1 mg PO BID 06/18/21 10/07/21 Gabapentin [Neurontin] 100 mg PO BID@0800,1200 07/08/21 10/07/21 Gabapentin [Neurontin] 200 mg PO HS 07/08/21 10/07/21 Cinacalcet [Sensipar] 30 mg PO TUTHSA 07/29/21 10/07/21 Melatonin 3 mg PO HS PRN 07/29/21 10/07/21 Midodrine HCl [ProAmatine] 10 mg PO DAILY PRN 08/08/21 10/07/21 diazePAM [Valium] 5 mg PO HS PRN 08/08/21 10/07/21 Furosemide [Lasix] 80 mg PO BID 09/26/21 10/07/21 Insulin Glargine,Hum.rec.anlog 35 unit SQ HS 09/26/21 10/07/21 [Lantus Solostar Pen] Sennosides-Docusate Sodium 1 tab PO HS PRN 09/26/21 10/07/21 [Senokot-S] Ergocalciferol (Vitamin D2) 1,250 mcg PO RIVERA 10/07/21 10/07/21 [Drisdol (50,000 Iu)] Vit B Complx C/Folic Acid/Zinc 1 tab PO HS 10/07/21 10/07/21 [Renaplex Tablet] Iron 18 mg PO WEEKLY 11/18/21 11/18/21 Previous Rx's Medication Instructions Recorded INSULIN LISPRO (humaLOG) [humaLOG] 8 unit SQ AC-TID #0 08/02/21 Metoprolol Tartrate [Lopressor] 50 mg PO BID #0 08/10/21 Allergies Allergy/AdvReac Type Severity Reaction Status Date / Time hydromorphone [From Dilaudid] Allergy Swelling Verified 11/30/21 10:12 Anesthetics - Amide Type - AdvReac cardiac Verified 11/30/21 10:12 Select A arrest Anesthetics - Andree Type- AdvReac cardiac Verified 11/30/21 10:12 Parabens arrest ciprofloxacin [From Cipro] AdvReac AFFECTED Verified 11/30/21 10:12 EYESIGHT ciprofloxacin HCl AdvReac AFFECTED Verified 11/30/21 10:12 [From Cipro] EYESIGHT Iodinated Contrast Media AdvReac RENAL Verified 11/30/21 10:12 FAILURE Review of Systems ROS Statement: Those systems with pertinent positive or pertinent negative responses have been documented in the HPI. ROS Other: All systems not noted in ROS Statement are negative. Past Medical History Past Medical History: Blood Disorder, Coronary Artery Disease (CAD), Chest Pain / Angina, Heart Failure, COPD, Diabetes Mellitus, Dialysis, Hyperlipidemia, Hypertension, Liver Disease, Pneumonia, Renal Disease Additional Past Medical History / Comment(s): Pt admitted to [facility] on 07/29/21 with fluid overload. She had paracentesis. 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 History of Any Multi-Drug Resistant Organisms: MRSA Date of last positivie culture/infection: 08-02-20 MDRO Source:: Blood Past Surgical History: Cardiac Valve Replacement, Orthopedic Surgery, Uterine Ablation Additional Past Surgical History / Comment(s): Colonoscopy with polypectomy/biopsy, pancreatic resection at [facility] 2009, bone marrow biopsies X2, dialysis chest port X3 with removals, left arm shunt placement for dialysis and a revision done with shunt. Left forearm Vein Revision, liver biopsy, left arm fistula repair, mitral valve repacement 2019 at [facility], current working left upper arm fistula 2020. paracentesis procedures, bilateral cataract removals/lens implants, then laser eye surgery to remove film on lenses, dental surgery. Past Anesthesia/Blood Transfusion Reactions: No Reported Reaction Additional Past Anesthesia/Blood Transfusion Reaction / Comment(s): Pt allergic to Amide type anesthesia. Pt has received blood transfusions without reaction. Past Psychological History: Anxiety Additional Psychological History / Comment(s): Pt resides at her mother in laws home at this time with spouse. They are her mother in laws caretakers. 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 She is otherwise independent. She uses no assistive device. Smoking Status: Never smoker Past Alcohol Use History: None Reported Additional Past Alcohol Use History / Comment(s): Patient is a lifelong nonsmoker. Past Drug Use History: None Reported Additional Drug Use History / Comment(s): Pt states, "I rarely drink a wine cooler." - Past Family History Brother(s) Family Medical History: No Reported History Mother Family Medical History: Cancer, Congestive Heart Failure (CHF), Diabetes Mellitus Additional Family Medical History / Comment(s): Throat cancer. Father Family Medical History: Hypertension Additional Family Medical History / Comment(s): Alcoholism. General Exam - General Exam Comments Initial Comments: This is a well-developed well-nourished awake alert oriented 3 female General appearance: alert, in no apparent distress Head exam: Present: atraumatic, normocephalic, normal inspection Eye exam: Present: normal appearance, PERRL, EOMI. Absent: scleral icterus, conjunctival injection, periorbital swelling ENT exam: Present: normal exam, mucous membranes moist Neck exam: Present: normal inspection, full ROM, other (No surgery or bruits). Absent: tenderness, meningismus, lymphadenopathy Respiratory exam: Present: normal lung sounds bilaterally. Absent: respiratory distress, wheezes, rales, rhonchi, stridor, chest wall tenderness Cardiovascular Exam: Present: regular rate, normal rhythm, normal heart sounds. Absent: systolic murmur, diastolic murmur, rubs, gallop, clicks GI/Abdominal exam: Present: soft, normal bowel sounds. Absent: distended, tenderness, guarding, rebound, rigid Extremities exam: Present: full ROM, normal capillary refill, pedal edema. Absent: tenderness, joint swelling, calf tenderness Back exam: Present: normal inspection Neurological exam: Present: alert, oriented X3, CN II-XII intact Psychiatric exam: Present: normal affect, normal mood Skin exam: Present: warm, dry, intact, normal color. Absent: rash Course Vital Signs 11/30/21 11/30/21 11/30/21 09:57 10:45 11:15 Temperature 97.6 F Pulse Rate 49 L 46 L 47 L Respiratory 20 16 16 Rate Blood Pressure 158/66 148/68 137/67 O2 Sat by Pulse 98 97 97 Oximetry 11/30/21 11/30/21 11:45 12:15 Temperature Pulse Rate 50 L 46 L Respiratory 19 18 Rate Blood Pressure 144/70 146/70 O2 Sat by Pulse 99 99 Oximetry Chest Pain MDM - MDM Imaging reviewed as well as report evidence of pulmonary vascular congestion. I did discuss case with the patient as well as with Dr. Bragg patient will be admitted with inpatient evaluation and treatment of chest pain with cardiology consultation. Dr. Orozco will be can salted for further dialysis orders. Disposition Clinical Impression: Atypical chest pain, Chronic renal failure, CHF (congestive heart failure), Hypokalemia, Chronic anemia Disposition: ADMITTED IP TO THIS HOSP Condition: Stable Referrals: David Bragg MD [Primary Care Provider] - 1-2 days
--- NOTE | 2021-11-30 10:28 | XR ---
EXAMINATION TYPE: XR chest 2V DATE OF EXAM: 11/30/2021 10:20 AM COMPARISON: Chest radiograph 10/07/2021. TECHNIQUE: XR chest 2V Frontal and lateral views of the chest. CLINICAL INDICATION:Female, 56 years old with history of Chest Pain; FINDINGS: Lungs/Pleura: There is no evidence of pleural effusion, focal consolidation, or pneumothorax. Pulmonary vascularity: Mild pulmonary vascular congestion. Heart/mediastinum: Cardiomediastinal silhouette is enlarged and stable. Cardiac valve replacement red emonstrated. Left axillary vascular stent redemonstrated. Musculoskeletal: Midline sternotomy wires are noted and stable. No acute osseous abnormality. IMPRESSION: Mild pulmonary vascular congestion.
[2021-11-30 10:34] LABS: Anisocytosis Slight; Basophils % (A) 1 %; Eosinophils # (A) 0.1 k/uL (0-0.7); Eosinophils % (A) 2 %; HCT 33.8 % (34.0-46.0); HGB 10.5 gm/dL (11.4-16.0); Hypochromasia Moderate; Lymphocytes # (A) 0.4 k/uL (1.0-4.8); Lymphocytes % (A) 14 %; MCH 30.3 pg (25.0-35.0); MCHC 31.1 g/dL (31.0-37.0); MCV 97.4 fL (80.0-100.0); Macrocytosis Slight; Mean Platelet Volume 8.5; Monocytes # (A) 0.2 k/uL (0-1.0); Monocytes % (A) 7 %; Neutrophils # (A) 2.4 k/uL (1.3-7.7); Neutrophils % (A) 75 %; Platelet Count 100 k/uL (150-450); RBC 3.47 m/uL (3.80-5.40); RDW 16.1 % (11.5-15.5); WBC 3.2 k/uL (3.8-10.6)
[2021-11-30 10:43] LABS: Partial Thromboplastin Time 25.5 sec (22.0-30.0); Prothrombin Time 11.1 sec (9.0-12.0)
[2021-11-30 10:47] LABS: Albumin 4.2 g/dL (3.5-5.0); Calcium 8.6 mg/dL (8.4-10.2); Magnesium 1.9 mg/dL (1.6-2.3); Potassium 3.2 mmol/L (3.5-5.1); Total Bilirubin 0.9 mg/dL (0.2-1.3); Total Protein 6.6 g/dL (6.3-8.2)
[2021-11-30] MEDS ORDERED: hydrALAZINE HCL 50 MG TAB PO PRN (12:57)
[2021-11-30] MEDS ORDERED: diazePAM 5 MG TAB PO PRN (12:57)
[2021-11-30] MEDS ORDERED: ONDANSETRON 4 MG TAB PO PRN (12:57)
[2021-11-30] MEDS ORDERED: MIDODRINE 5 MG TAB PO PRN (12:57)
[2021-11-30] MEDS ORDERED: traMADol 50 MG TAB PO PRN (12:57)
[2021-11-30] MEDS ORDERED: MELATONIN 3 MG TABLET PO PRN (12:57)
[2021-11-30] MEDS ORDERED: SODIUM CHLORIDE 0.9% 1,000 ML IV SCH (13:00)
[2021-11-30] MEDS ORDERED: POTASSIUM CHLORIDE ER 20 MEQ TAB.ER PO STA (13:01)
[2021-11-30] MEDS ORDERED: LIDOCAINE-PRILOCAINE 2.5-2.5% CREAM 5 GM TUBE TOPICAL STA (14:17)
[2021-11-30 16:58] LABS: Glucose,Whole Blood 164 mg/dL (70-110)
[2021-11-30] MEDS: INSULIN ASPART (NovoLOG) 100 UNIT/ML VIAL SQ SCH ×2 (17:03→20:21)
[2021-11-30] MEDS: cloNIDine HCL 0.1 MG TAB PO SCH ×2 (18:00→20:20)
[2021-11-30] MEDS: FUROSEMIDE 80 MG TAB PO SCH (18:00)
[2021-11-30] MEDS: HYDROcodone/APAP 7.5-325MG 1 EACH TAB PO PRN (18:00)
--- NOTE | 2021-11-30 19:21 | CONS ---
CONSULTATION CHIEF COMPLAINT: Chest pain. Sara is a 56-year-old lady with history of end-stage renal disease, on hemodialysis, infective endocarditis, status post mitral valve repair, hypertension, dyslipidemia, chronic liver disease, ascites, pulmonary hypertension, chronic pancreatitis, status post partial pancreatectomy, and congestive heart failure who presented to hospital complaining of chest discomfort. Patient was at dialysis and stated that she had an episode of chest discomfort. It is mild intensity, precordial, unrelated to exertion associated with diaphoresis. At the time of my evaluation, she appears comfortable at rest and is free of any symptoms. An EKG shows sinus bradycardia with nonspecific ST-T wave changes. Patient has a history of mitral valve replacement following infective endocarditis. She had a cardiac catheterization in 2018 that revealed normal coronary arteries. An echocardiogram in January of 2021 revealed a normally functioning bioprosthetic valve in mitral position with severe tricuspid regurgitation and severe pulmonary hypertension. The patient's chest discomfort is atypical and probably noncardiac. Will obtain serial CPKs and troponins and if myocardial infarction is ruled out, discharge her home. Past medical history is significant for end-stage renal disease, on hemodialysis, hypertension, mitral regurgitation, status post mitral valve replacement, and insulin- requiring diabetes. Medications: She is on a long list of medications. I reviewed them. She has MULTIPLE DRUG ALLERGIES. I reviewed them. Family history is negative for premature coronary artery disease. Social history is negative for smoking, EtOH abuse or drug abuse. REVIEW OF SYSTEMS: HEENT is unremarkable. CARDIAC: As described above. RESPIRATORY: As described above. GI: Negative. GENITOURINARY: As described above. PSYCHOSOCIAL: Negative. DERMATOLOGY: Negative. CONSTITUTIONAL: Significant for feeling unwell. Rest of the system review is not relevant. PHYSICAL EXAMINATION: Heart rate is 50 beats per minute. Blood pressure is 150/72, respiratory rate is 16. O2 saturation is 100% on room air. There is no jugular venous distention. Carotid upstroke is diminished. There is no bruit. Chest exam reveals diminished air entry at the bases. Heart exam reveals first and second heart sounds and a systolic murmur at the apex. Abdomen appears distended. Examination of extremities reveals bilateral moderate edema. BNP is elevated at 20,500. ASSESSMENT: 1. Precordial chest pain. 2. Mitral regurgitation, status post mitral valve replacement. 3. Acute exacerbation of chronic congestive heart failure. 4. Chronic renal failure. PLAN: Continue the patient on current medications. Obtain troponins. If they are negative, she can be discharged home with outpatient followup with Dr. Tesfaye and an outpatient stress test. MARIANNE / DARVINN: [id number] /
[2021-11-30] MEDS: METOPROLOL TARTRATE 50 MG TAB PO SCH (20:21)
[2021-11-30 20:30] LABS: Glucose,Whole Blood 155 mg/dL (70-110)
[2021-11-30] MEDS ORDERED: INSULIN DETEMIR (LEVEMIR) 100 UNIT/ML SYR SQ SCH (21:00)
[2021-11-30] MEDS ORDERED: GABAPENTIN 100 MG CAP PO SCH (21:00)
[2021-11-30] MEDS ORDERED: PANTOPRAZOLE 40 MG TABLET PO SCH (21:00)
--- NOTE | 2021-11-30 23:44 | HP ---
HISTORY AND PHYSICAL Sara Desouza came to the emergency room for right-sided chest pain that she has had after dialysis today. She is supposed to get a peritoneal tap for ascites on Thursday. She says this chest pain is brand new. She had dialysis 2 L this morning. She has a history of mitral valve repair after infective myocarditis, endocarditis, hypertension, dyslipidemia, chronic liver disease, ascites, pulmonary hypertension, chronic pancreatitis-status post partial pancreatectomy, congestive heart failure, chest discomfort, severely elevated BNP. EKG shows sinus bradycardia. Nonspecific ST-T changes. She had an echo in January 2021 showed a normal bioprosthetic valve and severe pulmonary hypertension. She is admitted for rule out myocardial infarction. PAST MEDICAL HISTORY: As mentioned, end-stage renal disease, hypertension, mitral regurg, insulin-dependent diabetes mellitus, ascites, pulmonary hypertension. MEDICINES: See list. ALLERGIES: See list. Both were reviewed. PHYSICAL EXAM: Vital signs stable, afebrile. Cardiovascular S1, S2. Endocrine BMI is over 30. Hematologic: Generalized edema 2 to 3+ in the in the legs. Abdomen is distended with ascitic wave. Lungs: Rales at the base. Psych: Fair mood and affect. Neurologic: [place] [address]. ASSESSMENT: 1. Recurrent chest pain. 2. Mitral regurgitation. 3. Acute exacerbation of chronic congestive heart failure. 4. Chronic renal failure. 5. Current medicines. 6. Troponins to rule out ND. PROGNOSIS: Guarded. We will try to discharge her home once Cardiology clears her due to she needs to get a paracentesis done on Thursday. MMODL / IJN: [id number] /
[2021-12-01] MEDS: HYDROcodone/APAP 7.5-325MG 1 EACH TAB PO PRN ×2 (01:26→12:17)
[2021-12-01] MEDS: INSULIN ASPART (NovoLOG) 100 UNIT/ML VIAL SQ SCH ×2 (06:40→12:05)
[2021-12-01 06:47] LABS: Glucose,Whole Blood 129 mg/dL (70-110)
[2021-12-01 07:56] LABS: Calcium 9.5 mg/dL (8.4-10.2); Potassium 4.4 mmol/L (3.5-5.1)
[2021-12-01] MEDS ORDERED: ASPIRIN 325 MG TAB PO SCH (09:00)
[2021-12-01] MEDS ORDERED: SODIUM ZIRCONIUM CYCLOSILICATE 10 GM PACKET PO SCH (09:00)
[2021-12-01] MEDS ORDERED: amLODIPine 5 MG TAB PO SCH (09:30)
--- NOTE | 2021-12-01 09:30 | P.NPCON ---
History of Present Illness - Reason for Consult end stage renal disease - History of Present Illness Patient is a 56-year-old female with end-stage renal disease on hemodialysis on a Thursday schedule. Patient was admitted to the hospital yesterday with complaints of chest pain. She was midway between treatment and had had about 2 hours of treatment and was taken off due to significant chest pain. Patient has underlying history of significant volume overload requiring 4-5 L of ultrafiltration with each treatment and few extra treatments as well. Patient had a treatment in the hospital yesterday with 3.4 L of fluid taken off area she had already had about 2 L taken off at the dialysis unit in [place] prior to coming to ER. Overall patient states she is feeling better. There are plans for discharge today with follow-up for dialysis on Thursday as outpatient. Troponin was ne gative Review of Systems As per HPI, other systems negative Past Medical History Past Medical History: Blood Disorder, Coronary Artery Disease (CAD), Chest Pain / Angina, Heart Failure, COPD, Diabetes Mellitus, Dialysis, Hyperlipidemia, Hypertension, Liver Disease, Pneumonia, Renal Disease Additional Past Medical History / Comment(s): Pt admitted to [facility] on 07/29/21 with fluid overload. She had paracentesis. 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 History of Any Multi-Drug Resistant Organisms: MRSA Date of last positivie culture/infection: 08-02-20 MDRO Source:: Blood Past Surgical History: Cardiac Valve Replacement, Orthopedic Surgery, Uterine Ab lation Additional Past Surgical History / Comment(s): Colonoscopy with poly pectomy/biopsy, pancreatic resection at [facility] 2009, bone marrow biopsies X2, dialysis chest port X3 with removals, left arm shunt placement for dialysis and a revision done with shunt. Left forearm Vein Revision, liver biopsy, left arm fistula repair, mitral valve repacement 2019 at [facility], current working left upper arm fistula 2020. paracentesis procedures, bilateral cataract remov als/lens implants, then laser eye surgery to remove film on lenses, dental surgery. Past Anesthesia/Blood Transfusion Reactions: No Reported Reaction Additional Past Anesthesia/Blood Transfusion Reaction / Comment(s): Pt allergic to Amide type anesthesia. Pt has received blood transfusions without reaction. Past Psychological History: Anxiety Additional Psychological History / Comment(s): Pt resides at her mother in laws home at this time with spouse. They are her mother in laws caretakers. 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 She is otherwise independent. She uses no assistive device. Smoking Status: Never smoker Past Alcohol Use History: None Reported Additional Past Alcohol Use History / Comment(s): Patient is a lifelong nonsmoker. Past Drug Use History: None Reported Additional Drug Use History / Comment(s): Pt states, "I rarely drink a wine cooler." - Past Family History Brother(s) Family Medical History: No Reported History Mother Family Medical History: Cancer, Congestive Heart Failure (CHF), Diabetes Mellitus Additional Family Medical History / Comment(s): Throat cancer. Father Family Medical History: Hypertension Additional Family Medical History / Comment(s): Alcoholism. Medications and Allergies Home Medications Medication Instructions Recorded Confirmed Type cloNIDine HCL [Catapres] 0.3 mg PO TID 12/16/16 11/30/21 History hydrALAZINE HCL [Apresoline] 100 mg PO TID 12/14/18 11/30/21 History HYDROcodone/APAP 7.5-325MG [[place] 1 tab PO Q8H PRN 11/08/19 11/30/21 History 7.5-325] traMADol HCL [Ultram] 50 mg PO BID PRN 05/13/20 11/30/21 History Omeprazole 20 mg PO HS 08/02/20 11/30/21 History Sevelamer [Renvela] 3,200 mg PO AC-TID 12/01/20 11/30/21 History Sevelamer [Renvela] 800 - 1,600 mg PO DAILY PRN 12/01/20 11/30/21 History Lidocaine-Prilocaine Cream [Emla 1 applic TOPICAL TUTHSA PRN 06/18/21 11/30/21 History Cream 2.5%/2.5%] Ondansetron [Zofran] 4 mg PO TID PRN 06/18/21 11/30/21 History rOPINIRole HCL [Requip] 1 mg PO BID 06/18/21 11/30/21 History Gabapentin [Neurontin] 100 mg PO BID@0800,1200 07/08/21 11/30/21 History Gabapentin [Neurontin] 200 mg PO HS 07/08/21 11/30/21 History Cinacalcet [Sensipar] 30 mg PO TUTHSA 07/29/21 11/30/21 History Melatonin 3 mg PO HS PRN 07/29/21 11/30/21 History Midodrine HCl [ProAmatine] 10 mg PO TUTA PRN 08/08/21 11/30/21 History diazePAM [Valium] 5 mg PO HS PRN 08/08/21 11/30/21 History Metoprolol Tartrate [Lopressor] 50 mg PO BID #0 08/10/21 11/30/21 Rx Furosemide [Lasix] 80 mg PO BID@0300,1300 09/26/21 11/30/21 History Insulin Glargine,Hum.rec.anlog 45 unit SQ HS 09/26/21 11/30/21 History [Lantus Solostar Pen] Sennosides-Docusate Sodium 1 tab PO HS PRN 09/26/21 11/30/21 History [Senokot-S] Ergocalciferol (Vitamin D2) 1,250 mcg PO RIVERA 10/07/21 11/30/21 History [Drisdol (50,000 Iu)] Vit B Complx C/Folic Acid/Zinc 1 tab PO HS 10/07/21 11/30/21 History [Renaplex Tablet] Iron 18 mg PO Q7D 11/18/21 11/30/21 History INSULIN LISPRO (HumaLOG) [humaLOG] See Protocol SQ AC-TID 11/30/21 11/30/21 History hydrALAZINE HCL [Apresoline] 100 mg PO DAILY PRN 11/30/21 11/30/21 History Allergies Allergy/AdvReac Type Severity Reaction Status Date / Time hydromorphone [From Dilaudid] Allergy Swelling Verified 11/30/21 14:14 Anesthetics - Amide Type - AdvReac cardiac Verified 11/30/21 14:14 Select A arrest Anesthetics - Andree Type- AdvReac cardiac Verified 11/30/21 14:14 Parabens arrest ciprofloxacin [From Cipro] AdvReac AFFECTED Verified 11/30/21 14:14 EYESIGHT ciprofloxacin HCl AdvReac AFFECTED Verified 11/30/21 14:14 [From Cipro] EYESIGHT Iodinated Contrast Media AdvReac RENAL Verified 11/30/21 14:14 FAILURE Physical Exam Vitals: Vital Signs Temp Pulse Pulse Resp BP BP Pulse Ox 12/01/21 03:20 52 L 18 166/72 99 11/30/21 23:15 57 L 18 157/68 99 11/30/21 20:20 99 F 61 18 151/63 97 11/30/21 18:33 98 F 91 20 164/84 11/30/21 14:43 97.7 F 72 16 167/77 99 11/30/21 13:08 50 L 16 156/70 100 11/30/21 12:15 46 L 18 146/70 99 11/30/21 11:45 50 L 19 144/70 99 11/30/21 11:15 47 L 16 137/67 97 11/30/21 10:45 46 L 16 148/68 97 11/30/21 09:57 97.6 F 49 L 20 158/66 98 Intake and Output 11/30/21 12/01/21 12/01/21 22:59 06:59 14:59 Intake Total 400 360 Output Total 3400 Balance -3000 360 Intake: Oral 100 360 Hemodialysis 300 Output: Hemodialysis 3400 Other: Voiding Method Toilet Toilet # Voids 3 Patient is comfortable awake, not in any acute distress Alert oriented 3 Examination of the heart S1 and S2 Examination of the lungs bilateral breath sounds are heard Abdomen is soft nontender, ascitis Examination of the lower extremities shows bilateral chronic skin changes with bilateral edema about 2+ 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 End-stage renal disease on hemodialysis on a Thursday schedule 2. Volume overload currently improved 3. Chest pain, seems to be noncardiac, currently improved. Troponins negative 4. CK D mineral bone disorder 5. Chronic liver disease with recurrent ascites needing paracentesis 6. Hypertension partly volume sensitive Plan: Patient can be discharged from nephrology standpoint. Follow-up as outpatient for dialysis on Thursday. Patient is again advised to continue with salt and fluid restriction and possible extra treatments as outpatient for volume overload Christiano hazel
[2021-12-01] MEDS: FUROSEMIDE 80 MG TAB PO SCH (09:32)
[2021-12-01] MEDS: METOPROLOL TARTRATE 50 MG TAB PO SCH (09:32)
[2021-12-01] MEDS: cloNIDine HCL 0.1 MG TAB PO SCH (09:33)
[2021-12-01] MEDS: GABAPENTIN 100 MG CAP PO SCH ×2 (09:33→12:05)
[2021-12-01 10:43] VITALS: TEMP 98.3
[2021-12-01 11:53] LABS: Glucose,Whole Blood 148 mg/dL (70-110)
[2021-12-01] MEDS ORDERED: ALPRAZolam 0.25 MG TAB PO STA (12:44)
[2021-12-01 13:20] VITALS: BP 147/71; PULSE 75; RESP 20
--- NOTE | 2021-12-01 13:52 | PN ---
PROGRESS NOTE 56-year-old lady with history of mitral regurgitation status post mitral valve surgery at [facility], end-stage renal disease on hemodialysis, hypertension, who presented to hospital yesterday with chest pain. Her EKG shows sinus rhythm with nonspecific ST-T wave changes. She has had fairly uneventful day yesterday. Did not have any further episodes of chest pain. She has had 3 sets of cardiac enzymes that are all within normal limits. On exam this morning, blood pressure is elevated at 166/72, respiratory rate is 18. Chest exam reveals good air entry bilaterally. Heart exam reveals first and second heart sounds. No gallop. Abdomen is soft. Examination of extremities reveals bilateral pitting edema. The patient is currently on aspirin, Catapres 0.3 t.i.d., Lasix 80 b.i.d., Apresoline 100 t.i.d., Lopressor 50 b.i.d. I will add amlodipine for better blood pressure control. ASSESSMENT: 1. Atypical chest pain myocardial infarction ruled out. 2. Mitral regurgitation status post mitral valve surgery. 3. End-stage renal disease on hemodialysis. 4. Uncontrolled hypertension. PLAN: Patient will continue current medications. She is stable for discharge. Follow up with Dr. Tesfaye. MMCHAIM / DARVINN: [id number] /
== END 2021-12-01 13:20 | disposition home or self-care (01) ==
LOC: EC 09:54 → 6NMEDSUR 13:07 → 3SCARD 14:28
PROVIDERS: ADMIT Family Medicine; ATTEND Family Medicine
DX: I33.0 Acute and subacute infective endocarditis (principal); I34.0 Nonrheumatic mitral (valve) insufficiency; E87.6 Hypokalemia; I25.10 Atherosclerotic heart disease of native coronary artery without angina pectoris; I13.2 Hypertensive heart and chronic kidney disease with heart failure and with stage 5 chronic kidney disease, or end stage renal disease; N18.6 End stage renal disease; I50.21 Acute systolic (congestive) heart failure; E11.22 Type 2 diabetes mellitus with diabetic chronic kidney disease; J44.9 Chronic obstructive pulmonary disease, unspecified; E78.5 Hyperlipidemia, unspecified; Z99.2 Dependence on renal dialysis; K76.9 Liver disease, unspecified; I27.20 Pulmonary hypertension, unspecified; R07.89 Other chest pain; K86.1 Other chronic pancreatitis; Z95.2 Presence of prosthetic heart valve; Z87.01 Personal history of pneumonia (recurrent); D64.89 Other specified anemias; Z79.4 Long term (current) use of insulin; Z86.14 Personal history of Methicillin resistant Staphylococcus aureus infection; G51.0 Bell's palsy; G25.81 Restless legs syndrome; I08.1 Rheumatic disorders of both mitral and tricuspid valves; K76.6 Portal hypertension
CPT/HCPCS: 99285; 36415; 93005; 83880; 80053; 80048; 82550; 83690; 83735; 84484 ×2; 85025; 85610; 85730; 71046; G0378 ×3; 90935

== ENCOUNTER 2021-12-02 12:16 | Day surgery (SDC) | payer MEDICARE, OTHER ==
[2021-12-02 12:51] VITALS: RESP 16; TEMP 97.5
[2021-12-02] MEDS ORDERED: ALBUMIN HUMAN 25% 50 ML in EMPTY BAG 1 BAG IVPB SCH (13:00)
[2021-12-02 13:15] VITALS: BP 155/73; PULSE 54
--- NOTE | 2021-12-02 13:36 | US ---
Discontinued paracentesis HISTORY: Ascites Following discussion with the patient, she has elected to defer paracentesis at this time. Patient is rescheduled. mild to moderate ascites noted. impression: Paracentesis is rescheduled, discontinued at this time
== END 2021-12-02 13:30 | disposition home or self-care (01) ==
LOC: RADPROMAIN 12:16
PROVIDERS: ATTEND Family Medicine
DX: R18.8 Other ascites (principal); Z53.20 Procedure and treatment not carried out because of patient's decision for unspecified reasons; K74.60 Unspecified cirrhosis of liver; Z88.5 Allergy status to narcotic agent; Z88.3 Allergy status to other anti-infective agents; Z88.4 Allergy status to anesthetic agent; Z91.041 Radiographic dye allergy status; Z79.899 Other long term (current) drug therapy; Z79.82 Long term (current) use of aspirin; Z79.4 Long term (current) use of insulin; Z95.2 Presence of prosthetic heart valve; Z80.0 Family history of malignant neoplasm of digestive organs; Z83.3 Family history of diabetes mellitus; Z82.49 Family history of ischemic heart disease and other diseases of the circulatory system; Z81.1 Family history of alcohol abuse and dependence
CPT/HCPCS: 36415; 76705

== ENCOUNTER 2021-12-13 06:24 | Inpatient (IN) | payer MEDICARE, OTHER ==
--- NOTE | 2021-12-13 07:24 | ED ---
General Adult HPI - General Chief complaint: Chest Pain Stated complaint: chest pain Time Seen by Provider: 12/13/21 07:00 Source: patient, RN notes reviewed, old records reviewed Mode of arrival: ambulatory Limitations: no limitations - History of Present Illness Initial comments: This is a 56-year-old female who presents emergency Department with a past medical history significant for dialysis diabetes and COPD. Patient also had endocarditis in 2019 and had to have open heart surgery. Patient comes in today stating that she's been coughing quite a bit more over the last 4 days she's also been expansion chest pain for the last 3 days. Patient states she also feels short of breath. Patient denies any fever chills. Patient denies any abdominal pain patient denies nausea vomiting diarrhea. Patient states the swelling in her legs is actually going down. Patient states that she has dialysis tomorrow. - Related Data Home Medications Medication Instructions Recorded Confirmed cloNIDine HCL [Catapres] 0.3 mg PO TID 12/16/16 12/02/21 hydrALAZINE HCL [Apresoline] 100 mg PO TID 12/14/18 12/02/21 HYDROcodone/APAP 7.5-325MG [[place] 1 tab PO Q8H PRN 11/08/19 12/02/21 7.5-325] traMADol HCL [Ultram] 50 mg PO BID PRN 05/13/20 12/02/21 Omeprazole 20 mg PO HS 08/02/20 12/02/21 Sevelamer [Renvela] 3,200 mg PO AC-TID 12/01/20 12/02/21 Sevelamer [Renvela] 800 - 1,600 mg PO DAILY PRN 12/01/20 12/02/21 Lidocaine-Prilocaine Cream [Emla 1 applic TOPICAL TUTHSA PRN 06/18/21 12/02/21 Cream 2.5%/2.5%] Ondansetron [Zofran] 4 mg PO TID PRN 06/18/21 12/02/21 rOPINIRole HCL [Requip] 1 mg PO BID 06/18/21 12/02/21 Gabapentin [Neurontin] 100 mg PO BID@0800,1200 07/08/21 12/02/21 Gabapentin [Neurontin] 100 mg PO HS 07/08/21 12/02/21 Cinacalcet [Sensipar] 30 mg PO TUTHSA 07/29/21 12/02/21 Melatonin 3 mg PO HS PRN 07/29/21 12/02/21 Midodrine HCl [ProAmatine] 10 mg PO TUTHSA PRN 08/08/21 12/02/21 diazePAM [Valium] 5 mg PO HS PRN 08/08/21 12/02/21 Furosemide [Lasix] 80 mg PO BID@0300,1300 09/26/21 12/02/21 Insulin Glargine,Hum.rec.anlog 45 unit SQ HS 09/26/21 12/02/21 [Lantus Solostar Pen] Sennosides-Docusate Sodium 1 tab PO HS PRN 09/26/21 12/02/21 [Senokot-S] Ergocalciferol (Vitamin D2) 1,250 mcg PO RIVERA 10/07/21 12/02/21 [Drisdol (50,000 Iu)] Vit B Complx C/Folic Acid/Zinc 1 tab PO HS 10/07/21 12/02/21 [Renaplex Tablet] Iron 18 mg PO Q7D 11/18/21 12/02/21 INSULIN LISPRO (HumaLOG) [humaLOG] See Protocol SQ AC-TID 11/30/21 12/02/21 hydrALAZINE HCL [Apresoline] 100 mg PO DAILY PRN 11/30/21 12/02/21 Previous Rx's Medication Instructions Recorded Metoprolol Tartrate [Lopressor] 50 mg PO BID #0 08/10/21 Aspirin 325 mg PO DAILY 90 Days #90 tab 12/01/21 amLODIPine [Norvasc] 5 mg PO DAILY 30 Days #30 tab 12/01/21 Allergies Allergy/AdvReac Type Severity Reaction Status Date / Time hydromorphone [From Dilaudid] Allergy Swelling Verified 12/13/21 06:28 Anesthetics - Amide Type - AdvReac cardiac Verified 12/13/21 06:28 Select A arrest Anesthetics - Andree Type- AdvReac cardiac Verified 12/13/21 06:28 Parabens arrest ciprofloxacin [From Cipro] AdvReac AFFECTED Verified 12/13/21 06:28 EYESIGHT ciprofloxacin HCl AdvReac AFFECTED Verified 12/13/21 06:28 [From Cipro] EYESIGHT Iodinated Contrast Media AdvReac RENAL Verified 12/13/21 06:28 FAILURE Review of Systems ROS Statement: Those systems with pertinent positive or pertinent negative responses have been documented in the HPI. ROS Other: All systems not noted in ROS Statement are negative. Past Medical History Past Medical History: Blood Disorder, Coronary Artery Disease (CAD), Chest Pain / Angina, Heart Failure, COPD, Diabetes Mellitus, Dialysis, Hyperlipidemia, Hypertension, Liver Disease, Pneumonia, Renal Disease Additional Past Medical History / Comment(s): Pt admitted to [facility] on 07/29/21 with fluid overload. She had paracentesis. 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 History of Any Multi-Drug Resistant Organisms: MRSA Date of last positivie culture/infection: 08-02-20 MDRO Source:: Blood Past Surgical History: Cardiac Valve Replacement, Orthopedic Surgery, Uterine Ablation Additional Past Surgical History / Comment(s): Colonoscopy with polypectomy/biopsy, pancreatic resection at [facility] 2009, bone marrow biopsies X2, dialysis chest port X3 with removals, left arm shunt placement for dialysis and a revision done with shunt. Left forearm Vein Revision, liver biopsy, left arm fistula repair, mitral valve repacement 2019 at [facility], current working left upper arm fistula 2020. paracentesis procedures, bilateral cataract removals/lens implants, then laser eye surgery to remove film on lenses, dental surgery. Past Anesthesia/Blood Transfusion Reactions: No Reported Reaction Additional Past Anesthesia/Blood Transfusion Reaction / Comment(s): Pt allergic to Amide type anesthesia. Pt has received blood transfusions without reaction. Past Psychological History: Anxiety Smoking Status: Never smoker Past Alcohol Use History: None Reported Past Drug Use History: None Reported - Past Family History Brother(s) Family Medical History: No Reported History Mother Family Medical History: Cancer, Congestive Heart Failure (CHF), Diabetes Mellitus Additional Family Medical History / Comment(s): Throat cancer. Father Family Medical History: Hypertension Additional Family Medical History / Comment(s): Alcoholism. General Exam - General Exam Comments Initial Comments: GENERAL: Patient is well-developed and well-nourished. Patient is nontoxic and well- hydrated and is in mild distress. ENT: Neck is soft and supple. No significant lymphadenopathy is noted. Oropharynx is clear. Moist mucous membranes. Neck has full range of motion without eliciting any pain. EYES: The sclera were anicteric and conjunctiva were pink and moist. Extraocular movements were intact and pupils were equal round and reactive to light. Eyelids were unremarkable. PULMONARY: Unlabored respirations. Good breath sounds bilaterally. No audible rales rhonchi or wheezing was noted. CARDIOVASCULAR: There is a regular rate and rhythm patient's got a 2/6 systolic murmur ABDOMEN: Soft and nontender with normal bowel sounds. SKIN: Skin is clear with no lesions or rashes and otherwise unremarkable. NEUROLOGIC: Patient is alert and oriented x3. Cranial nerves II through XII are grossly intact. Motor and sensory are also intact. Normal speech, volume and content. Symmetrical smile. MUSCULOSKELETAL: Normal extremities with adequate strength and full range of motion. LYMPHATICS: No significant lymphadenopathy is noted PSYCHIATRIC: Normal psychiatric evaluation. Limitations: no limitations Course Vital Signs 12/13/21 12/13/21 12/13/21 06:28 07:51 08:39 Temperature 98.4 F 98 F 101.8 F H Pulse Rate 74 77 Respiratory 18 16 Rate Blood Pressure 196/89 126/72 O2 Sat by Pulse 98 92 L Oximetry 12/13/21 08:58 Temperature Pulse Rate 84 Respiratory 18 Rate Blood Pressure 187/87 O2 Sat by Pulse 100 Oximetry Medical Decision Making - Medical Decision Making EKG shows a sinus rhythm with occasional at 80 bpm VA interval is 171 QRSs 117 QT interval 396 QTC is 431. Patient's EKG shows no ST segment elevation or depression. X-ray shows venous congestion. Patient still complains of occasional chest pain. Patient states she still feels somewhat short of breath. Patient's COVID positive. We have no monoclonal antibodies at this time. Patient is coughing so hard she has vomited multiple times in the emergency department. - Lab Data Result diagrams: 12/13/21 07:43 12/13/21 07:43 Lab Results 12/13/21 12/13/21 12/13/21 Range/Units 07:43 07:43 07:43 WBC 1.5 L (3.8-10.6) k/uL RBC 3.61 L (3.80-5.40) m/uL Hgb 11.4 (11.4-16.0) gm/dL Hct 35.4 (34.0-46.0) % MCV 98.3 (80.0-100.0) fL MCH 31.5 (25.0-35.0) pg MCHC 32.0 (31.0-37.0) g/dL RDW 16.5 H (11.5-15.5) % MPV 8.2 Hypochromasia Moderate Anisocytosis Slight Macrocytosis Slight PT 11.0 (9.0-12.0) sec INR 1.0 (<1.2) APTT 25.5 (22.0-30.0) sec Sodium 138 (137-145) mmol/L Potassium 4.7 (3.5-5.1) mmol/L Chloride 98 (98-107) mmol/L Carbon Dioxide 27 (22-30) mmol/L Anion Gap 13 mmol/L BUN 38 H (7-17) mg/dL Creatinine 6.30 H (0.52-1.04) mg/dL Est GFR (CKD-EPI)AfAm 8 (>60 ml/min/1.73 sqM) Est GFR (CKD-EPI)NonAf 7 (>60 ml/min/1.73 sqM) Glucose 223 H (74-99) mg/dL Plasma Lactic Acid Micha (0.7-2.0) mmol/L Calcium 8.9 (8.4-10.2) mg/dL Magnesium 1.8 (1.6-2.3) mg/dL Total Bilirubin 1.0 (0.2-1.3) mg/dL AST 29 (14-36) U/L ALT 15 (4-34) U/L Alkaline Phosphatase 116 (38-126) U/L Troponin I (0.000-0.034) ng/mL NT-Pro-B Natriuret Pep pg/mL Total Protein 7.1 (6.3-8.2) g/dL Albumin 4.5 (3.5-5.0) g/dL Coronavirus (PCR) (Not Detectd) 12/13/21 12/13/21 12/13/21 Range/Units 07:43 07:43 07:43 WBC (3.8-10.6) k/uL RBC (3.80-5.40) m/uL Hgb (11.4-16.0) gm/dL Hct (34.0-46.0) % MCV (80.0-100.0) fL MCH (25.0-35.0) pg MCHC (31.0-37.0) g/dL RDW (11.5-15.5) % MPV Hypochromasia Anisocytosis Macrocytosis PT (9.0-12.0) sec INR (<1.2) APTT (22.0-30.0) sec Sodium (137-145) mmol/L Potassium (3.5-5.1) mmol/L Chloride (98-107) mmol/L Carbon Dioxide (22-30) mmol/L Anion Gap mmol/L BUN (7-17) mg/dL Creatinine (0.52-1.04) mg/dL Est GFR (CKD-EPI)AfAm (>60 ml/min/1.73 sqM) Est GFR (CKD-EPI)NonAf (>60 ml/min/1.73 sqM) Glucose (74-99) mg/dL Plasma Lactic Acid Micha 1.5 (0.7-2.0) mmol/L Calcium (8.4-10.2) mg/dL Magnesium (1.6-2.3) mg/dL Total Bilirubin (0.2-1.3) mg/dL AST (14-36) U/L ALT (4-34) U/L Alkaline Phosphatase (38-126) U/L Troponin I 0.018 (0.000-0.034) ng/mL NT-Pro-B Natriuret Pep 30804 pg/mL Total Protein (6.3-8.2) g/dL Albumin (3.5-5.0) g/dL Coronavirus (PCR) (Not Detectd) 12/13/21 Range/Units 07:43 WBC (3.8-10.6) k/uL RBC (3.80-5.40) m/uL Hgb (11.4-16.0) gm/dL Hct (34.0-46.0) % MCV (80.0-100.0) fL MCH (25.0-35.0) pg MCHC (31.0-37.0) g/dL RDW (11.5-15.5) % MPV Hypochromasia Anisocytosis Macrocytosis PT (9.0-12.0) sec INR (<1.2) APTT (22.0-30.0) sec Sodium (137-145) mmol/L Potassium (3.5-5.1) mmol/L Chloride (98-107) mmol/L Carbon Dioxide (22-30) mmol/L Anion Gap mmol/L BUN (7-17) mg/dL Creatinine (0.52-1.04) mg/dL Est GFR (CKD-EPI)AfAm (>60 ml/min/1.73 sqM) Est GFR (CKD-EPI)NonAf (>60 ml/min/1.73 sqM) Glucose (74-99) mg/dL Plasma Lactic Acid Micha (0.7-2.0) mmol/L Calcium (8.4-10.2) mg/dL Magnesium (1.6-2.3) mg/dL Total Bilirubin (0.2-1.3) mg/dL AST (14-36) U/L ALT (4-34) U/L Alkaline Phosphatase (38-126) U/L Troponin I (0.000-0.034) ng/mL NT-Pro-B Natriuret Pep pg/mL Total Protein (6.3-8.2) g/dL Albumin (3.5-5.0) g/dL Coronavirus (PCR) Detected A (Not Detectd) Disposition Clinical Impression: Pulmonary edema, COVID-19, Chest pain, Vomiting, Dyspnea Disposition: ADMITTED IP TO THIS HOSP Referrals: David Bragg MD [Primary Care Provider] - 1-2 days Time of Disposition: 09:12
[2021-12-13 08:02] LABS: Anisocytosis Slight; Basophils % (A) 1 %; Eosinophils % (A) 2 %; HCT 35.4 % (34.0-46.0); HGB 11.4 gm/dL (11.4-16.0); Hypochromasia Moderate; Lymphocytes # (A) 0.1 k/uL (1.0-4.8); Lymphocytes % (A) 8 %; MCH 31.5 pg (25.0-35.0); MCV 98.3 fL (80.0-100.0); Macrocytosis Slight; Mean Platelet Volume 8.2; Monocytes # (A) 0.1 k/uL (0-1.0); Monocytes % (A) 9 %; Neutrophils # (A) 1.2 k/uL (1.3-7.7); Neutrophils % (A) 77 %; RBC 3.61 m/uL (3.80-5.40); RDW 16.5 % (11.5-15.5); WBC 1.5 k/uL (3.8-10.6)
[2021-12-13 08:10] LABS: Albumin 4.5 g/dL (3.5-5.0); Calcium 8.9 mg/dL (8.4-10.2); Magnesium 1.8 mg/dL (1.6-2.3); Potassium 4.7 mmol/L (3.5-5.1); Total Protein 7.1 g/dL (6.3-8.2)
[2021-12-13 08:12] LABS: Partial Thromboplastin Time 25.5 sec (22.0-30.0)
--- NOTE | 2021-12-13 08:18 | XR ---
EXAMINATION TYPE: XR chest 2V DATE OF EXAM: 12/13/2021 COMPARISON: Chest x-ray November 30, 2021 HISTORY: Difficulty in breathing. TECHNIQUE: Frontal and lateral views of the chest are obtained. FINDINGS: There is persistent cardiomegaly with metallic aortic valve. Overlying sternal wires are redemonstrated. There is stent graft in the left subclavian effusion redemonstrated. No suspicious ne w focal airspace opacity or pleural effusion seen bilaterally. Centrally increased markings are prese nt. The osseous structures are intact. IMPRESSION: Cardiomegaly with central vascular congestion. Correlate for CHF exacerbation. Findings appear similar to prior chest x-ray.
[2021-12-13] MEDS ORDERED: ACETAMINOPHEN TAB 500 MG TAB PO STA (08:51)
[2021-12-13] MEDS ORDERED: IBUPROFEN 600 MG TAB PO STA (08:51)
[2021-12-13] MEDS ORDERED: ONDANSETRON 4 MG/2 ML VIAL IVP STA (09:10)
[2021-12-13 09:15] LABS: Platelet Count 92 k/uL (150-450)
--- NOTE | 2021-12-13 10:13 | P.NPCON ---
History of Present Illness - Reason for Consult end stage renal disease - History of Present Illness Reason for consultation: End-stage renal disease History of present illness: Patient is a 56-year-old female seen in consultation for end-stage renal disease. She is maintained on hemodialysis on Thursday schedule. Patient was seen and examined in the emergency room. Patient presented to the hospital due to chest pain and shortness of breath. She did test positive for coronavirus. She was noted to have a temperature of 101.8F on admission. She does admit to a cough with clear phlegm. Denies body aches. Chest x-ray suggestive of fluid overload. She does have edema in the lower extremity. Patient has history of diastolic CHF and severe tricuspid regurgitation and pulmonary hypertension. She also requires paracentesis with last one being about 2 months ago with nearly 4 L drained. Oral intake has been fair. Denies vomiting or diarrhea. Last hemodialysis was yesterday. Vital signs are stable. General: Awake. No acute distress. HEENT: Head exam is unremarkable LUNGS: Breath sounds decreased. HEART: Rate and Rhythm are regular. ABDOMEN: Soft, distention noted. EXTREMITITES: 1+ edema. Past Medical History Past Medical History: Blood Disorder, Coronary Artery Disease (CAD), Chest Pain / Angina, Heart Failure, COPD, Diabetes Mellitus, Dialysis, Hyperlipidemia, Hypertension, Liver Disease, Pneumonia, Renal Disease Additional Past Medical History / Comment(s): Pt admitted to [facility] on 07/29/21 wi th fluid overload. She had paracentesis. Other Hx: IDDM type II, past DKA, L retinal hemorrhages, chronic kidney disease/ESRD with hemodialysis, mineral bone disease, portal htn with hepatosplenomegaly, past acute kidney injury after pancreatitc surgery requring hemodialysis for 2 months, hypertriglyceridemia- induced acute pancreatitis, then necrotizing pancreatitis, abdominal ascities/paracentesis/fatty liver/cirrhosis, pulmonary HTN, UTI, chronic anemia, frequent body cramping, occasional low back pain, carter's palsy X2, past L leg fx, , pt states lately she has had bilateral leg/foot pain with ambulation, RLS, insomnia. History of Any Multi-Drug Resistant Organisms: MRSA Date of last positivie culture/infection: 08-02-20 MDRO Source:: Blood Past Surgical History: Cardiac Valve Replacement, Orthopedic Surgery, Uterine Ablation Additional Past Surgical History / Comment(s): Colonoscopy with polypectomy/biopsy, pancreatic resection at [facility] 2009, bone marrow biopsies X2, dialysis chest port X3 with removals, left arm shunt placement for dialysis and a revision done with shunt. Left forearm Vein Revision, liver biopsy, left arm fistula repair, mitral valve repacement 2019 at [facility], current working left upper arm fistula 2020. paracentesis procedures, bilateral cataract removals/lens implants, then laser eye surgery to remove film on zack ses, dental surgery. Past Anesthesia/Blood Transfusion Reactions: No Reported Reaction Additional Past Anesthesia/Blood Transfusion Reaction / Comment(s): Pt allergic to Amide type anesthesia. Pt has received blood transfusions without reaction. Past Psychological History: Anxiety Smoking Status: Never smoker Past Alcohol Use History: None Reported Past Drug Use History: None Reported - Past Family History Brother(s) Family Medical History: No Reported History Mother Family Medical History: Cancer, Congestive Heart Failure (CHF), Diabetes Mellitus Additional Family Medical History / Comment(s): Throat cancer. Father Family Medical History: Hypertension Additional Family Medical History / Comment(s): Alcoholism. Medications and Allergies Home Medications Medication Instructions Recorded Confirmed Type cloNIDine HCL [Catapres] 0.3 mg PO TID 12/16/16 12/13/21 History hydrALAZINE HCL [Apresoline] 100 mg PO Q12H 12/14/18 12/13/21 History HYDROcodone/APAP 7.5-325MG [[place] 1 tab PO TID 11/08/19 12/13/21 History 7.5-325] traMADol HCL [Ultram] 50 mg PO Q12H 05/13/20 12/13/21 History Omeprazole 20 mg PO HS 08/02/20 12/13/21 History Sevelamer [Renvela] 2,400 mg PO AC-TID 12/01/20 12/13/21 History Sevelamer [Renvela] 800 mg PO DAILY PRN 12/01/20 12/13/21 History Lidocaine-Prilocaine Cream [Emla 1 applic TOPICAL TUTHSA PRN 06/18/21 12/13/21 History Cream 2.5%/2.5%] Ondansetron [Zofran] 4 mg PO TID 06/18/21 12/13/21 History rOPINIRole HCL [Requip] 1 mg PO BID 06/18/21 12/13/21 History Gabapentin [Neurontin] 100 mg PO TID 07/08/21 12/13/21 History Cinacalcet [Sensipar] 30 mg PO TUTHSA 07/29/21 12/13/21 History Midodrine HCl [ProAmatine] 10 mg PO TUTHSA@2100 08/08/21 12/13/21 History diazePAM [Valium] 5 mg PO BID 08/08/21 12/13/21 History Furosemide [Lasix] 80 mg PO BID@0300,1300 09/26/21 12/13/21 History Insulin Glargine,Hum.rec.anlog 45 unit SQ HS 09/26/21 12/13/21 History [Lantus Solostar Pen] Ergocalciferol (Vitamin D2) 1,250 mcg PO RIVERA 10/07/21 12/13/21 History [Drisdol (50,000 Iu)] INSULIN LISPRO (HumaLOG) [humaLOG] See Protocol SQ AC-TID 11/30/21 12/13/21 History Aspirin 325 mg PO DAILY 90 Days #90 tab 12/01/21 12/13/21 Rx amLODIPine [Norvasc] 5 mg PO DAILY 30 Days #30 tab 12/01/21 12/13/21 Rx Metoprolol Tartrate [Lopressor] 50 mg PO TID 12/13/21 12/13/21 History Multivitamins, Thera [Multivitamin 1 tab PO DAILY 12/13/21 12/13/21 History (formulary)] Sodium Zirconium Cyclosilicate 10 gm PO SUMOWEFR 12/13/21 12/13/21 History [Lokelma] Allergies Allergy/AdvReac Type Severity Reaction Status Date / Time hydromorphone [From Dilaudid] Allergy Swelling Verified 12/13/21 06:28 Anesthetics - Amide Type - AdvReac cardiac Verified 12/13/21 06:28 Select A arrest Anesthetics - Andree Type- AdvReac cardiac Verified 12/13/21 06:28 Parabens arrest ciprofloxacin [From Cipro] AdvReac AFFECTED Verified 12/13/21 06:28 EYESIGHT ciprofloxacin HCl AdvReac AFFECTED Verified 12/13/21 06:28 [From Cipro] EYESIGHT Iodinated Contrast Media AdvReac RENAL Verified 12/13/21 06:28 FAILURE Physical Exam Vitals: Vital Signs Temp Pulse Resp BP Pulse Ox 12/13/21 08:58 84 18 187/87 100 12/13/21 08:39 101.8 F H 12/13/21 07:51 98 F 77 16 126/72 92 L 12/13/21 06:28 98.4 F 74 18 196/89 98 Intake and Output 12/12/21 12/13/21 12/13/21 22:59 06:59 14:59 Other: Weight 77.111 kg Results - Lab Results Most recent lab results Calcium 8.9 mg/dL (8.4-10.2) 12/13/21 07:43 Magnesium 1.8 mg/dL (1.6-2.3) 12/13/21 07:43 12/13/21 07:43 12/13/21 07:43 Assessment and Plan Plan: Assessment: 1. End-stage renal disease maintained on hemodialysis on Thursday schedule. 2. COVID-19 infection. 3. Volume overload. 4. Acute on chronic diastolic CHF with severe tricuspid regurgitation and pulmonary hypertension. 5. Chronic kidney disease mineral bone disease maintained on Sensipar and PhosLo outpatient. 6. Bicytopenia. Possibly from infection. Consider hematology eval. 7. Chronic hyperkalemia maintained on lokelma outpatient. 8. Diabetes mellitus. 9. Hypertension with chronic kidney disease. Plan: Extra hemodialysis treatment today mostly for ultrafiltration. Another treatment tomorrow per her outpatient schedule. Resume Renvela with meals. Resume Sensipar 30 mg 3 times a week. Check abdominal ultrasound to check for ascites. Low-salt diet and 1200 mL fluid restriction. Resume lokelma 10 g daily. Home antihypertensives to be resumed. Thank you for the consultation. I will continue to follow the patient with you during her hospital stay.
--- NOTE | 2021-12-13 11:10 | US ---
EXAMINATION TYPE: US abdomen limited DATE OF EXAM: 12/13/2021 COMPARISON: Most recent ultrasound December 02, 2021 CLINICAL HISTORY: ascites. Ascites, abdominal distention Ascites seen on today's exam, RLQ showed the largest fluid pocket Small 2 moderate amount of intraperitoneal ascites redemonstrated similar to most recent prior study greatest in the right lower quadrant. IMPRESSION: As above.
[2021-12-13] MEDS: diazePAM 5 MG TAB PO SCH ×2 (11:20→20:18)
[2021-12-13] MEDS: ASPIRIN 325 MG TAB PO SCH (11:20)
[2021-12-13] MEDS: amLODIPine 5 MG TAB PO SCH (11:20)
[2021-12-13] MEDS: cloNIDine HCL 0.1 MG TAB PO SCH ×3 (11:22→21:13)
[2021-12-13] MEDS: METOPROLOL TARTRATE 50 MG TAB PO SCH ×3 (11:22→21:13)
[2021-12-13] MEDS: hydrALAZINE HCL 50 MG TAB PO SCH ×2 (11:22→20:20)
[2021-12-13] MEDS: ONDANSETRON 4 MG TAB PO SCH ×3 (12:52→21:13)
[2021-12-13] MEDS: traMADol 50 MG TAB PO SCH ×2 (12:53→20:20)
[2021-12-13 16:42] LABS: Glucose,Whole Blood 301 mg/dL (70-110)
[2021-12-13] MEDS: SEVELAMER 800 MG TAB PO SCH ×2 (17:24→17:36)
[2021-12-13] MEDS: FUROSEMIDE 80 MG TAB PO SCH ×2 (17:25→17:36)
[2021-12-13] MEDS: GABAPENTIN 100 MG CAP PO SCH ×2 (17:36→21:11)
[2021-12-13] MEDS: HYDROcodone/APAP 7.5-325MG 1 EACH TAB PO SCH ×2 (17:37→21:11)
[2021-12-13] MEDS: PANTOPRAZOLE 40 MG TABLET PO SCH (20:20)
--- NOTE | 2021-12-13 20:49 | P.HPIM ---
History of Present Illness H&P Date: 12/13/21 Chief Complaint: Short of breath This is a pleasant 56-year-old patient who follows with Dr. David Bragg. Chronic stable medical conditions include COPD, diabetes, end-stage kidney disease on hemodialysis with left arm fistula, hyperlipidemia hypertension and hypertriglyceridemia-induced acute pancreatitis, pancreatic resection at [facility] 2009. Patient presents with increasing shortness of breath for 4 days. Slight cough. No sputum. No fever no chills. Appetite is fair. Feels tired rundown. No change in bowel pattern. Tested positive for COVID-19. Due for hemodialysis today. Review of systems: GEN.: Tired EYES: None HEENT: None NECK: None RESPIRATORY: As above CARDIOVASCULAR: None GASTROINTESTINAL: None GENITOURINARY: None MUSCULOSKELETAL: Pain in multiple joints LYMPHATICS: None HEMATOLOGICAL: None PSYCHIATRY: None NEUROLOGICAL: [Pain in the feet Past medical history to include: Diastolic heart failure, valvular heart disease status post mitral valve repair in the setting of endocarditis, end-stage kidney disease on hemodialysis, anemi a, diabetes mellitus type, hyperlipidemia, hypertension, secondary pulmonary hypertension with renal bone disease, anemia of chronic kidney disease, fatty liver disease leading to cirrhosis with portal hypertension, ascites, acute kidney injury after pancreatic surgery requiring hemodialysis previously 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 No alcohol. . Family history: Cancer, CHF, diabetes Physical examination: VITAL SIGNS: 97, 69, 16, 1/57, 96% on 2 L GENERAL: BMI 30.1 laying in bed, awake, tired. EYES: Pupils equal. Conjunctiva normal. HEENT: External appearance of nose and ears normal, oral cavity grossly normal. NECK: JVD not raised; masses not palpable. HEART: First and second heart sounds are normal; edema present LUNGS: Respiratory rate normal; clear to auscultation. ABDOMEN: Soft, distended nontender, liver spleen not palpable, no masses palpable. PSYCH: Alert and oriented x3; mood and affect normal. MUSCULOSKELETAL:No Clubbing/cyanosis;muscles-grossly intact NEUROLOGICAL: Cranial nerves grossly intact; no facial asymmetry, power and sensation: Some decreased sensation peripherally. LYMPHATICS: No lymph nodes palpable in the axilla and neck INVESTIGATIONS, reviewed in the clinical context: White count 1.5 hemoglobin 11.4 platelets 92 potassium 4.7 BUN 38 creatinine 6.30 Troponin I less than 0.018 COVID-19: Positive EKG tracing personally reviewed by me-normal sinus rhythm, nonspecific ST segment changes. Chest x-ray film personally reviewed by me-cardiac titi. Some venous prominence Assessment and plan: -COVID 19 pneumonitis. Pulse ox on room air 100%. Consultation -Fluid over load multifactorial Dialysis today. -Hypertensive heart disease -Secondary severe pulmonary hypertension -Severe tricuspid regurgitation - ascites secondary to cirrhosis: Lasix 80 mg twice a day -Portal hypertension with hepatosplenomegaly secondary to cirrhosis Lasix -Cirrhosis secondary to fatty liver Patient does follow with Dr. Andrei Guaman Diabetes mellitus type 2, chronically on insulin. Uncontrolled with hyperglycemia. Levemir 35 units subcu daily at bedtime. Accu-Chek. -End-stage kidney disease on hemodialysis Hemodialysis, Thursday. Nephrology -Hyperlipidemia Cardiac diet -Restless leg syndrome On Requip 1 mg twice a day -Essential hypertension Catapres 0.3 mg 3 times a day, , Lopressor 50 mg 3 times a day. 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 renvela -Painful peripheral neuropathy: Better Neurontin 100 mg 3 times a day -Chronic insomnia from multiple medical problems Melatonin Hemodialysis today. Home medications resumed. Consultation nephrology . Discussed with patient. Continue Lasix. Follow Accu-Cheks. Past Medical History Past Medical History: Blood Disorder, Coronary Artery Disease (CAD), Chest Pain / Angina, Heart Failure, COPD, Diabetes Mellitus, Dialysis, Eye Disorder, Hyperlipidemia, Hypertension, Liver Disease, Pneumonia, Renal Disease Additional Past Medical History / Comment(s): Pt admitted to [facility] on 11/30/21 with exacerbation CHF. Other Hx: IDDM type II, past DKA, L retinal hemorrhages, chronic kidney disease/ESRD with hemodialysis, mineral bone disease, portal htn with hepatosplenomegaly, ascities/paracentesises, fatty liver/cirrhosis, hypertriglyceridemia-induced acute pancreatitis, then necrotizing pancreatitis wotj surgery, infectious myocarditis/endocarditis /mitral valve replaced, pulmonary HTN, UTI, chronic anemia, frequent body cramping, occasional low back pain, carter's palsy X2, past L leg fx, RLS, insomnia. History of Any Multi-Drug Resistant Organisms: MRSA Date of last positivie culture/infection: 08-02-20 MDRO Source:: Blood Past Surgical History: Cardiac Valve Replacement, Orthopedic Surgery, Uterine Ablation Additional Past Surgical History / Comment(s): Colonoscopy with polypectomy/biopsy, pancreatic resection at [facility] 2009, bone marrow biopsies X2, dialysis chest port X3 with removals, left arm shunt placement for dialysis and a revision done with shunt, left forearm vein revision, liver biopsy, mitral valve repacement 2019 at [facility],. paracentesis procedures, bilateral cataract removals/lens implants, then laser eye surgery to remove film on lenses, dental surgery. Past Anesthesia/Blood Transfusion Reactions: No Reported Reaction Additional Past Anesthesia/Blood Transfusion Reaction / Comment(s): Pt allergic to Amide type anesthesia/andree type parabins. Pt has received blood transfusions without reaction. Smoking Status: Never smoker - Past Family History Brother(s) Family Medical History: No Reported History Mother Family Medical History: Cancer, Congestive Heart Failure (CHF), Diabetes Mellitus Additional Family Medical History / Comment(s): Throat cancer. Father Family Medical History: Hypertension Additional Family Medical History / Comment(s): Alcoholism. Medications and Allergies Home Medications Medication Instructions Recorded Confirmed Type cloNIDine HCL [Catapres] 0.3 mg PO TID 12/16/16 12/13/21 History hydrALAZINE HCL [Apresoline] 100 mg PO Q12H 12/14/18 12/13/21 History HYDROcodone/APAP 7.5-325MG [Nowata 1 tab PO TID 11/08/19 12/13/21 History 7.5-325] traMADol HCL [Ultram] 50 mg PO Q12H 05/13/20 12/13/21 History Omeprazole 20 mg PO HS 08/02/20 12/13/21 History Sevelamer [Renvela] 2,400 mg PO AC-TID 12/01/20 12/13/21 History Sevelamer [Renvela] 800 mg PO DAILY PRN 12/01/20 12/13/21 History Lidocaine-Prilocaine Cream [Emla 1 applic TOPICAL TUTHSA PRN 06/18/21 12/13/21 History Cream 2.5%/2.5%] Ondansetron [Zofran] 4 mg PO TID 06/18/21 12/13/21 History rOPINIRole HCL [Requip] 1 mg PO BID 06/18/21 12/13/21 History Gabapentin [Neurontin] 100 mg PO TID 07/08/21 12/13/21 History Cinacalcet [Sensipar] 30 mg PO TUTHSA 07/29/21 12/13/21 History Midodrine HCl [ProAmatine] 10 mg PO TUTHSA@2100 08/08/21 12/13/21 History diazePAM [Valium] 5 mg PO BID 08/08/21 12/13/21 History Furosemide [Lasix] 80 mg PO BID@0300,1300 09/26/21 12/13/21 History Insulin Glargine,Hum.rec.anlog 45 unit SQ HS 09/26/21 12/13/21 History [Lantus Solostar Pen] Ergocalciferol (Vitamin D2) 1,250 mcg PO RIVERA 10/07/21 12/13/21 History [Drisdol (50,000 Iu)] INSULIN LISPRO (HumaLOG) [humaLOG] See Protocol SQ AC-TID 11/30/21 12/13/21 History Aspirin 325 mg PO DAILY 90 Days #90 tab 12/01/21 12/13/21 Rx amLODIPine [Norvasc] 5 mg PO DAILY 30 Days #30 tab 12/01/21 12/13/21 Rx Metoprolol Tartrate [Lopressor] 50 mg PO TID 12/13/21 12/13/21 History Multivitamins, Thera [Multivitamin 1 tab PO DAILY 12/13/21 12/13/21 History (formulary)] Sodium Zirconium Cyclosilicate 10 gm PO SUMOWEFR 12/13/21 12/13/21 History [Lokelma] Allergies Allergy/AdvReac Type Severity Reaction Status Date / Time hydromorphone [From Dilaudid] Allergy Swelling Verified 12/13/21 06:28 Anesthetics - Amide Type - AdvReac cardiac Verified 12/13/21 06:28 Select A arrest Anesthetics - Andree Type- AdvReac cardiac Verified 12/13/21 06:28 Parabens arrest ciprofloxacin [From Cipro] AdvReac AFFECTED Verified 12/13/21 06:28 EYESIGHT ciprofloxacin HCl AdvReac AFFECTED Verified 12/13/21 06:28 [From Cipro] EYESIGHT Iodinated Contrast Media AdvReac RENAL Verified 12/13/21 06:28 FAILURE Physical Exam Vitals: Vital Signs Temp Pulse Pulse Resp BP BP Pulse Ox 12/13/21 18:05 98.2 F 73 18 161/78 92 L 12/13/21 16:21 97.9 F 69 19 166/72 100 12/13/21 16:04 64 18 129/64 96 12/13/21 14:42 97 F L 69 16 108/57 12/13/21 12:55 80 18 107/53 97 12/13/21 11:25 79 16 158/81 98 12/13/21 10:34 80 16 187/87 99 12/13/21 08:58 84 18 187/87 100 12/13/21 08:39 101.8 F H 12/13/21 07:51 98 F 77 16 126/72 92 L 12/13/21 06:28 98.4 F 74 18 196/89 98 Intake and Output 12/13/21 12/13/21 12/13/21 06:59 14:59 22:59 Intake Total 300 574 Output Total 1999 Balance -1700 574 Intake: Oral 574 Hemodialysis 300 Output: Hemodialysis 1999 Other: Weight 77.111 kg 77.111 kg Results CBC & Chem 7: 12/13/21 07:43 12/13/21 07:43 Labs: Abnormal Lab Results - Last 24 Hours (Table) 12/13/21 12/13/21 12/13/21 Range/Units 07:43 07:43 07:43 WBC 1.5 L (3.8-10.6) k/uL RBC 3.61 L (3.80-5.40) m/uL RDW 16.5 H (11.5-15.5) % Plt Count 92 L (150-450) k/uL Neutrophils # 1.2 L (1.3-7.7) k/uL Lymphocytes # 0.1 L (1.0-4.8) k/uL BUN 38 H (7-17) mg/dL Creatinine 6.30 H (0.52-1.04) mg/dL Glucose 223 H (74-99) mg/dL POC Glucose (mg/dL) (70-110) mg/dL Coronavirus (PCR) Detected A (Not Detectd) 12/13/21 Range/Units 16:41 WBC (3.8-10.6) k/uL RBC (3.80-5.40) m/uL RDW (11.5-15.5) % Plt Count (150-450) k/uL Neutrophils # (1.3-7.7) k/uL Lymphocytes # (1.0-4.8) k/uL BUN (7-17) mg/dL Creatinine (0.52-1.04) mg/dL Glucose (74-99) mg/dL POC Glucose (mg/dL) 301 H (70-110) mg/dL Coronavirus (PCR) (Not Detectd) Thrombosis Risk Factor Assmnt - Choose All That Apply Any of the Below Risk Factors Present?: Yes Each Factor Represents 1 point: Abnormal pulmonary function (COPD), Age 41-60 years, Heart failure (<1month), Obesity (BMI >25), Swollen legs (current) Other Risk Factors: No Other congenital or acquired thrombophilia - If yes, enter type in comment: No Thrombosis Risk Factor Assessment Total Risk Factor Score: 5 Thrombosis Risk Factor Assessment Level: High Risk
[2021-12-13 20:59] LABS: Glucose,Whole Blood 336 mg/dL (70-110)
[2021-12-13] MEDS: INSULIN DETEMIR (LEVEMIR) 100 UNIT/ML SYR SQ SCH (21:11)
--- NOTE | 2021-12-13 22:16 | P.CONS ---
History of Present Illness - Reason for Consult Consult date: 12/13/21 covid 19 Requesting physician: Michael Mora - Chief Complaint Shortness of breath x few days - History of Present Illness Patient is a 56-year female with a past medical history significant for end-stage renal disease on hemodialysis to the left arm AV fistula, patient presented to the ER for evaluation of chest pain increasing shortness of breath and fever symptom has been going on for a day before presentation to the hospital patient did have a cough moderate intensity and bring up some clear sputum patient denies having any pleuritic chest pain, patient denies having nausea no vomiting and no diarrhea patient on presentation to the hospital did have a fever of 101.8 F patient did have a O2 sats of 98 to 92% and is currently on a 2 L nasal cannula patient did have a leukopenia as well as lymphopenia liver exam has been normal mata PCR was positive patient did have a chest x-ray cardiomegaly with central venous congestion correlate for CHF exac erbation findings appear similar to prior chest x-ray patient was admitted to the hospital infectious disease was consulted for further management Review of Systems Positive point has been mentioned in the HPI rest of the systems are negative Past Medical History Past Medical History: Blood Disorder, Coronary Artery Disease (CAD), Chest Pain / Angina, Heart Failure, COPD, Diabetes Mellitus, Dialysis, Eye Disorder, Hyperlipidemia, Hypertension, Liver Disease, Pneumonia, Renal Disease Additional Past Medical History / Comment(s): Pt admitted to [facility] on 11/30/21 with exacerbation CHF. 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 History of Any Multi-Drug Resistant Organisms: MRSA Year Discovered:: 08-02-20 MDRO Source:: Blood Past Surgical History: Cardiac Valve Replacement, Orthopedic Surgery, Uterine Ablation Additional Past Surgical History / Comment(s): Colonoscopy with polypectomy/biopsy, pancreatic resection at [facility] 2010, bone marrow biopsies X2, dialysis chest port X3 with removals, left arm shunt placement for dialysis and a revision done with shunt, left forearm vein revision, liver biopsy, mitral valve repacement 2019 at [facility],. paracentesis procedures, bilateral cataract removals/lens implants, then laser eye surgery to remove film on lenses, dental surgery. Past Anesthesia/Blood Transfusion Reactions: No Reported Reaction Additional Past Anesthesia/Blood Transfusion Reaction / Comm: Pt allergic to Amide type anesthesia/julita type parabins. Pt has received blood transfusions without reaction. Smoking Status: Never smoker - Past Family History Brother(s) Family Medical History: No Reported History Mother Family Medical History: Cancer, Congestive Heart Failure (CHF), Diabetes Mellitus Additional Family Medical History / Comment(s): Throat cancer. Father Family Medical History: Hypertension Additional Family Medical History / Comment(s): Alcoholism. Medications and Allergies Home Medications Medication Instructions Recorded Confirmed Type cloNIDine HCL [Catapres] 0.3 mg PO TID 12/16/16 12/13/21 History hydrALAZINE HCL [Apresoline] 100 mg PO Q12H 12/14/18 12/13/21 History HYDROcodone/APAP 7.5-325MG [Caspar 1 tab PO TID 11/08/19 12/13/21 History 7.5-325] traMADol HCL [Ultram] 50 mg PO Q12H 05/13/20 12/13/21 History Omeprazole 20 mg PO HS 08/02/20 12/13/21 History Lidocaine-Prilocaine Cream [Emla 1 applic TOPICAL [facility] PRN 06/18/21 12/13/21 History Cream 2.5%/2.5%] Ondansetron [Zofran] 4 mg PO TID 06/18/21 12/13/21 History rOPINIRole HCL [Requip] 1 mg PO BID 06/18/21 12/13/21 History Gabapentin [Neurontin] 100 mg PO TID 07/08/21 12/13/21 History Cinacalcet [Sensipar] 30 mg PO TUTHSA 07/29/21 12/13/21 History diazePAM [Valium] 5 mg PO BID 08/08/21 12/13/21 History Furosemide [Lasix] 80 mg PO BID@0300,1300 09/26/21 12/13/21 History Ergocalciferol (Vitamin D2) 1,250 mcg PO RIVERA 10/07/21 12/13/21 History [Drisdol (50,000 Iu)] INSULIN LISPRO (HumaLOG) [humaLOG] See Protocol SQ AC-TID 11/30/21 12/13/21 History Aspirin 325 mg PO DAILY 90 Days #90 tab 12/01/21 12/13/21 Rx amLODIPine [Norvasc] 5 mg PO DAILY 30 Days #30 tab 12/01/21 12/13/21 Rx Metoprolol Tartrate [Lopressor] 50 mg PO TID 12/13/21 12/13/21 History Multivitamins, Thera [Multivitamin 1 tab PO DAILY 12/13/21 12/13/21 History (formulary)] Insulin Detemir (Levemir) [Levemir] 35 unit SQ HS each 12/17/21 Rx Midodrine [ProAmatine] 5 mg PO AC-TID tab 12/17/21 Rx Sevelamer [Renvela] 1,600 mg PO TID-W/MEALS 30 Days 12/17/21 Rx #90 tab Sildenafil [Revatio] 20 mg PO TID 30 Days #90 tab 12/17/21 Rx Zinc Sulfate [Orazinc] 220 mg PO DAILY 10 Days #10 cap 12/17/21 Rx dexAMETHasone ORAL [Hexadrol] 4 mg PO ONCE 7 Days #7 tab 12/18/21 Rx Allergies Allergy/AdvReac Type Severity Reaction Status Date / Time hydromorphone [From Dilaudid] Allergy Swelling Verified 12/13/21 06:28 Anesthetics - Amide Type - AdvReac cardiac Verified 12/13/21 06:28 Select A arrest Anesthetics - Julita Type- AdvReac cardiac Verified 12/13/21 06:28 Parabens arrest ciprofloxacin [From Cipro] AdvReac AFFECTED Verified 12/13/21 06:28 EYESIGHT ciprofloxacin HCl AdvReac AFFECTED Verified 12/13/21 06:28 [From Cipro] EYESIGHT Iodinated Contrast Media AdvReac RENAL Verified 12/13/21 06:28 FAILURE Physical Exam Vitals: Vital Signs Temp Pulse Pulse Resp BP BP Pulse Ox 12/13/21 14:42 97 F L 69 16 108/57 12/13/21 12:55 80 18 107/53 97 12/13/21 11:25 79 16 158/81 98 12/13/21 10:34 80 16 187/87 99 12/13/21 08:58 84 18 187/87 100 12/13/21 08:39 101.8 F H 12/13/21 07:51 98 F 77 16 126/72 92 L 12/13/21 06:28 98.4 F 74 18 196/89 98 Intake and Output 12/13/21 12/13/21 12/13/21 06:59 14:59 22:59 Intake Total 300 Output Total 1999 Balance -1700 Intake: Hemodialysis 300 Output: Hemodialysis 1999 Other: Weight 77.111 kg 77.111 kg GENERAL DESCRIPTION: Middle-aged female lying in bed, no distress. No tachypnea or accessory muscle of respiration use. HEENT: Shows Pallor , no scleral icterus. Oral mucous membrane is dry. No pharyngeal erythema or thrush NECK: Trachea central, no thyromegaly. LUNGS: Unlabored breathing. Decreased intensity of breath sounds No wheeze or crackle. HEART: S1, S2, regular rate and rhythm. No loud murmur ABDOMEN: Soft, no tenderness , guarding or rigidity, no organomegaly EXTREMITIES: No edema of feet. SKIN: No rash, no masses palpable. NEUROLOGICAL: The patient is awake, alert, oriented x3, mood and affect normal. Results CBC & Chem 7: 12/13/21 07:43 12/14/21 08:16 Labs: Abnormal Lab Results - Last 24 Hours (Table) 12/13/21 12/13/21 12/13/21 Range/Units 07:43 07:43 07:43 WBC 1.5 L (3.8-10.6) k/uL RBC 3.61 L (3.80-5.40) m/uL RDW 16.5 H (11.5-15.5) % Plt Count 92 L (150-450) k/uL Neutrophils # 1.2 L (1.3-7.7) k/uL Lymphocytes # 0.1 L (1.0-4.8) k/uL BUN 38 H (7-17) mg/dL Creatinine 6.30 H (0.52-1.04) mg/dL Glucose 223 H (74-99) mg/dL Coronavirus (PCR) Detected A (Not Detectd) Assessment and Plan (1) COVID-19 Current Visit: Yes Status: Acute Code(s): U07.1 - COVID-19 SNOMED Code(s): 656820635 Plan: 1patient presented to hospital with increasing shortness of breath with a cough and fever in this patient did have positive COVID test concerning for COVID- pneumonia patient did not have significant hypoxemia she was 90% on room air currently under percent on 2 L RN has been instructed to check her O2 sats on room air to see if the patient qualify for remdesivir. 2for now we will continue the patient on dexamethasone Lovenox zinc and ascorbic acid. 3we will check inflammatory markers with a.m. lab. 4droplet isolation and respiratory support. We will follow on clinical condition and cultures to further adjust medication if needed Thank you for this consultation will follow this patient along with you Time with Patient: Greater than 30
[2021-12-13] MEDS: ENOXAPARIN 40 MG/0.4 ML SYRINGE SQ SCH (22:56)
[2021-12-13] MEDS: DEXAMETHASONE SOD PHOSPHATE 10 MG/ML 1 ML VIAL IV SCH (22:56)
[2021-12-14] MEDS: FUROSEMIDE 80 MG TAB PO SCH ×2 (03:51→12:52)
[2021-12-14 07:11] LABS: Glucose,Whole Blood 159 mg/dL (70-110)
--- NOTE | 2021-12-14 07:26 | XR ---
EXAMINATION TYPE: XR chest 1V portable DATE OF EXAM: 12/14/2021 6:33 AM COMPARISON: Chest radiographs from 12/13/2021 TECHNIQUE: XR chest 1V portable Portable AP radiograph of the chest. CLINICAL INDICATION:Female, 56 years old with history of pneumonia; FINDINGS: Lungs/Pleura: There is no evidence of pleural effusion, focal consolidation, or pneumothorax. Pulmonary vascularity: Unremarkable. Heart/mediastinum: Cardiomediastinal silhouette is unremarkable. Aortic valve repair changes. Musculoskeletal: No acute osseous pathology. Sternotomy wires are present. Other findings: Left axillary stents. IMPRESSION: No acute cardiopulmonary disease/process.
[2021-12-14] MEDS: hydrALAZINE HCL 50 MG TAB PO SCH ×2 (09:00→22:54)
[2021-12-14] MEDS: HYDROcodone/APAP 7.5-325MG 1 EACH TAB PO SCH ×2 (09:01→16:55)
[2021-12-14] MEDS: ASPIRIN 325 MG TAB PO SCH (09:01)
[2021-12-14] MEDS: traMADol 50 MG TAB PO SCH ×2 (09:02→22:55)
[2021-12-14] MEDS: ZINC SULFATE 220 MG CAP PO SCH (09:02)
[2021-12-14] MEDS: MULTIVITAMINS, THERA 1 EACH TAB PO SCH (09:02)
[2021-12-14] MEDS: cloNIDine HCL 0.1 MG TAB PO SCH ×3 (09:02→22:51)
[2021-12-14] MEDS: SEVELAMER 800 MG TAB PO SCH ×3 (09:02→16:56)
[2021-12-14] MEDS: diazePAM 5 MG TAB PO SCH ×2 (09:02→22:55)
[2021-12-14] MEDS: amLODIPine 5 MG TAB PO SCH (09:02)
[2021-12-14] MEDS: METOPROLOL TARTRATE 50 MG TAB PO SCH ×3 (09:02→22:54)
[2021-12-14] MEDS: GABAPENTIN 100 MG CAP PO SCH ×3 (09:02→22:54)
[2021-12-14] MEDS: ASCORBIC ACID 500 MG TAB PO SCH (09:02)
[2021-12-14] MEDS: DEXAMETHASONE SOD PHOSPHATE 10 MG/ML 1 ML VIAL IV SCH (09:03)
[2021-12-14] MEDS: ONDANSETRON 4 MG TAB PO SCH ×3 (09:03→22:56)
[2021-12-14] MEDS: ENOXAPARIN 40 MG/0.4 ML SYRINGE SQ SCH (09:03)
[2021-12-14] MEDS: SODIUM ZIRCONIUM CYCLOSILICATE 10 GM PACKET PO SCH (09:05)
[2021-12-14] MEDS ORDERED: LIDOCAINE-PRILOCAINE 2.5-2.5% CREAM 5 GM TUBE TOPICAL PRN (09:43)
[2021-12-14 11:43] LABS: Glucose,Whole Blood 171 mg/dL (70-110)
[2021-12-14 12:28] LABS: African American GFR (CKD) 8.6 (60.0-200.0); Albumin 4.1 g/dL (3.8-4.9); Albumin/Globulin Ratio 2.04 (1.60-3.17); Anion Gap 15.3 mmol/L (10.00-18.00); BUN/Creat Ratio 5.3 Ratio (12.00-20.00); Blood Urea Nitrogen 31.3 mg/dL (9.0-27.0); C Reactive Protein 2.2 mg/dL (0.00-0.80); Calcium 8.6 mg/dL (8.7-10.3); Carbon Dioxide 24.3 mmol/L (20.0-27.5); Non-African American GFR(CKD) 7.5 (60.0-200.0); Total Bilirubin 0.5 mg/dL (0.30-1.20); Total Protein 6.2 g/dL (6.2-8.2)
[2021-12-14 16:22] LABS: Glucose,Whole Blood 256 mg/dL (70-110)
[2021-12-14] MEDS ORDERED: DEXTROSE 50% SYRINGE 50 ML IVP PRN ×2 (16:47)
[2021-12-14] MEDS: INSULIN ASPART (NovoLOG) 100 UNIT/ML VIAL SQ SCH ×2 (16:54→22:53)
--- NOTE | 2021-12-14 19:05 | P.PN ---
Progress Note - Text Progress Note Date: 12/14/21 Chief Complaint: Short of breath This is a pleasant 56-year-old patient who follows with Dr. David Bragg. Chronic stable medical conditions include COPD, diabetes, end-stage kidney disease on hemodialysis with left arm fistula, hyperlipidemia hypertension and hypertriglyceridemia-induced acute pancreatitis, pancreatic resection at [facility] 2009. Patient presents with increasing shortness of breath for 4 days. Slight cough. No sputum. No fever no chills. Appetite is fair. Feels tired rundown. No change in bowel pattern. Tested positive for COVID-19. Due for hemodialysis today. December 14: Laying in bed. Tired. Had hemodialysis yesterday. Did tolerate some diet. Active Medications Acetaminophen (Acetaminophen Tab 325 Mg Tab) 325 mg PO Q6HR PRN PRN Reason: Fever and/ or Pain Hydrocodone Bitart/Acetaminophen (Hydrocodone/Apap 7.5-325mg 1 Each Tab) 1 each PO TID [facility] Last Admin: 12/14/21 16:55 Dose: 1 each Amlodipine Besylate (Amlodipine 5 Mg Tab) 5 mg PO DAILY [facility] Last Admin: 12/14/21 09:02 Dose: 5 mg Ascorbic Acid (Ascorbic Acid 500 Mg Tab) 1,000 mg PO DAILY [facility] Last Admin: 12/14/21 09:02 Dose: 1,000 mg Aspirin (Aspirin 325 Mg Tab) 325 mg PO DAILY [facility] Last Admin: 12/14/21 09:01 Dose: 325 mg Cinacalcet (Cinacalcet 30 Mg Tab) 30 mg PO TuThSa@2100 [facility] Clonidine (Clonidine Hcl 0.1 Mg Tab) 0.3 mg PO TID [facility] Last Admin: 12/14/21 16:55 Dose: 0.3 mg Dexamethasone Sodium Phosphate (Dexamethasone Sod Phosphate 10 Mg/Ml 1 Ml Vial) 6 mg IV DAILY [facility] Last Admin: 12/14/21 09:03 Dose: 6 mg Dextrose/Water (Dextrose 50% Syringe 50 Ml) 25 ml IVP PER PROTOCOL PRN; Protocol PRN Reason: Hypoglycemia Dextrose/Water (Dextrose 50% Syringe 50 Ml) 50 ml IVP PER PROTOCOL PRN; Protocol PRN Reason: Hypoglycemia Diazepam (Diazepam 5 Mg Tab) 5 mg PO BID [facility] Last Admin: 12/14/21 09:02 Dose: 5 mg Enoxaparin Sodium (Enoxaparin 40 Mg/0.4 Ml Syringe) 40 mg SQ DAILY [facility] Last Admin: 12/14/21 09:03 Dose: 40 mg Ergocalciferol (Ergocalciferol 1,250 Mcg (50,000 Iu) Capsule) 1,250 mcg PO RIVERA ANNI Furosemide (Furosemide 80 Mg Tab) 80 mg PO BID@0300,1300 [facility] Last Admin: 12/14/21 12:52 Dose: 80 mg Gabapentin (Gabapentin 100 Mg Cap) 100 mg PO TID [facility] Last Admin: 12/14/21 16:55 Dose: 100 mg Hydralazine HCl (Hydralazine Hcl 50 Mg Tab) 100 mg PO Q12HR [facility] Last Admin: 12/14/21 09:00 Dose: 100 mg Insulin Aspart (Insulin Aspart (Novolog) 100 Unit/Ml Vial) [address] [facility]; Protocol Last Admin: 12/14/21 16:54 Dose: 6 unit Insulin Detemir (Insulin Detemir (Levemir) 100 Unit/Ml Syr) 35 unit SQ [facility] Last Admin: 12/13/21 21:11 Dose: 35 unit Lidocaine/Prilocaine (Lidocaine-Prilocaine 2.5-2.5% Cream 5 Gm Tube) 1 applic TOPICAL ONCE PRN; Protocol PRN Reason: Pain Control Metoprolol Tartrate (Metoprolol Tartrate 50 Mg Tab) 50 mg PO TID [facility] Last Admin: 12/14/21 16:55 Dose: 50 mg Multivitamins (Multivitamins, Thera 1 Each Tab) 1 each PO DAILY [facility] Last Admin: 12/14/21 09:02 Dose: 1 each Ondansetron HCl (Ondansetron 4 Mg Tab) 4 mg PO TID [facility] Last Admin: 12/14/21 16:56 Dose: 4 mg Pantoprazole Sodium (Pantoprazole 40 Mg Tablet) 40 mg PO [facility] Last Admin: 12/13/21 20:20 Dose: 40 mg Ropinirole HCl (Ropinirole Hcl 1 Mg Tab) 1 mg PO BID [facility] Last Admin: 12/14/21 09:02 Dose: 1 mg Sevelamer Carbonate (Sevelamer 800 Mg Tab) 1,600 mg PO TID-W/MEALS [facility] Last Admin: 12/14/21 16:56 Dose: 1,600 mg Sodium Zirconium Cyclosilicate (Sodium Zirconium Cyclosilicate 10 Gm Packet) 10 gm PO DAILY [facility] Stop: 12/17/21 09:01 Last Admin: 12/14/21 09:05 Dose: 10 gm Tramadol HCl (Tramadol 50 Mg Tab) 50 mg PO Q12HR [facility] Last Admin: 12/14/21 09:02 Dose: 50 mg Zinc Sulfate (Zinc Sulfate 220 Mg Cap) 220 mg PO DAILY [facility] Last Admin: 12/14/21 09:02 Dose: 220 mg Past medical history to include: Diastolic heart failure, valvular heart disease status post mitral valve repair in the setting of endocarditis, end-stage kidney disease on hemodialysis, anemia, diabetes mellitus type, hyperlipidemia, hypertension, secondary pulmonary hypertension with renal bone disease, anemia of chronic kidney disease, fatty liver disease leading to cirrhosis with portal hypertension, ascites, acute kidney injury after pancreatic surgery requiring hemodialysis previously 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 No alcohol. . Family history: Cancer, CHF, diabetes Physical examination: VITAL SIGNS: 98.2, 60, 18, 1 48 x 68, 99% 2 L GENERAL: laying in bed, awake, tired. EYES: Pupils equal. Conjunctiva normal. HEENT: External appearance of nose and ears normal, oral cavity grossly normal. NECK: JVD not raised; masses not palpable. HEART: First and second heart sounds are normal; edema present LUNGS: Respiratory rate normal; clear to auscultation. ABDOMEN: Soft, distended nontender, liver spleen not palpable, no masses palpable. PSYCH: Alert and oriented x3; mood and affect normal. MUSCULOSKELETAL:No Clubbing/cyanosis;muscles-grossly intact NEUROLOGICAL: Cranial nerves grossly intact; no facial asymmetry, power and sensation: Some decreased sensation peripherally. INVESTIGATIONS, reviewed in the clinical context: December 24: Sodium 134 potassium 505.9 White count 1.5 hemoglobin 11.4 platelets 92 potassium 4.7 BUN 38 creatinine 6.30 Troponin I less than 0.018 COVID-19: Positive EKG tracing personally reviewed by me-normal sinus rhythm, nonspecific ST segment changes. Chest x-ray film personally reviewed by me-cardiac titi. Some venous prominence Assessment and plan: -COVID 19 pneumonitis. Pulse ox on room air 100%. Upon presentation Consultation to ID -Fluid over load multifactorial Dialysis -Hypertensive heart disease -Secondary severe pulmonary hypertension -Severe tricuspid regurgitation - ascites secondary to cirrhosis: Lasix 80 mg twice a day -Portal hypertension with hepatosplenomegaly secondary to cirrhosis Lasix -Cirrhosis secondary to fatty liver Patient does follow with Dr. Andrei Guaman Diabetes mellitus type 2, chronically on insulin. Uncontrolled with hyperglycemia. Levemir 35 units subcu daily at bedtime. Accu-Chek. -End-stage kidney disease on hemodialysis Hemodialysis, Thursday. Nephrology -Hyperlipidemia Cardiac diet -Restless leg syndrome On Requip 1 mg twice a day -Essential hypertension Catapres 0.3 mg 3 times a day, , Lopressor 50 mg 3 times a day. 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 renvela -Painful peripheral neuropathy: Better Neurontin 100 mg 3 times a day -Chronic insomnia from multiple medical problems Melatonin Continue current medication treatment plan. Follow with ID. Nephrology. Discussed with patient.
--- NOTE | 2021-12-14 19:06 | CT ---
EXAMINATION TYPE: CT brain wo con DATE OF EXAM: 12/14/2021 COMPARISON: None HISTORY: New numbness RT hand CT DLP: 1099.4 mGycm Automated exposure control for dose reduction was used. Images of the brain obtained with no contrast. Ventricles have normal size. There is no mass effect or midline shift. No sign of intracranial hemorr tim. The calvarium is intact. No evidence of cerebral edema. Skull base is intact. IMPRESSION: Negative unenhanced head CT scan.
--- NOTE | 2021-12-14 20:03 | P.PN ---
Subjective Progress Note Date: 12/14/21 Principal diagnosis: Covid 19 pneumonia Patient is a 56-year-old female with a past medical history significant for end-stage renal disease on hemodialysis, presented to the hospital with a fever and increasing shortness of breath patient did have a positive covid test. On today's evaluation that is 12/14/2021, the patient denies having any fever or any chills, the patient is breathing slightly comfortably, denies having any chest pain did have a cough but not bringing up any sputum no abdominal pain no diarrhea Objective - Vital Signs Vital signs: Vital Signs Temp 99.3 F 12/14/21 10:30 Pulse 70 12/14/21 10:00 Resp 18 12/14/21 10:00 BP 141/67 12/14/21 10:00 Pulse Ox 98 12/14/21 10:00 FiO2 Intake & Output 12/13/21 12/14/21 12/14/21 18:59 06:59 18:59 Intake Total 874 260 Output Total 1999 50 Balance -1126 210 Weight 77.111 kg Intake: Oral 574 260 Hemodialysis 300 Output: Urine 50 Hemodialysis 2000 Other: # Voids 1 - Exam GENERAL DESCRIPTION: Middle-aged female lying in bed in no distress RESPIRATORY SYSTEM: Unlabored breathing , decreased breath sounds at bases HEART: S1 S2 regular rate and rhythm , ABDOMEN: Soft , no tenderness EXTREMITIES: No edema feet - Labs CBC & Chem 7: 12/13/21 07:43 12/14/21 08:16 Labs: Abnormal Lab Results - Last 24 Hours (Table) 12/13/21 12/13/21 12/14/21 Range/Units 16:41 20:58 07:10 D-Dimer (<0.60) mg/L FEU Sodium (135-145) mmol/L Chloride (96-109) mmol/L BUN (9.0-27.0) mg/dL Creatinine (0.6-1.5) mg/dL Est GFR (CKD-EPI)AfAm (60.0-200.0) Est GFR (CKD-EPI)NonAf (60.0-200.0) BUN/Creatinine Ratio (12.00-20.00) Ratio Glucose (70-110) mg/dL POC Glucose (mg/dL) 301 H 336 H 159 H (70-110) mg/dL Calcium (8.7-10.3) mg/dL C-Reactive Protein (0.00-0.80) mg/dL 12/14/21 12/14/21 12/14/21 Range/Units 08:16 08:16 11:41 D-Dimer 2.75 H (<0.60) mg/L FEU Sodium 134 L (135-145) mmol/L Chloride 94 L (96-109) mmol/L BUN 31.3 H (9.0-27.0) mg/dL Creatinine 5.9 H (0.6-1.5) mg/dL Est GFR (CKD-EPI)AfAm 8.6 L (60.0-200.0) Est GFR (CKD-EPI)NonAf 7.5 L (60.0-200.0) BUN/Creatinine Ratio 5.30 L (12.00-20.00) Ratio Glucose 237 H (70-110) mg/dL POC Glucose (mg/dL) 171 H (70-110) mg/dL Calcium 8.6 L (8.7-10.3) mg/dL C-Reactive Protein 2.20 H (0.00-0.80) mg/dL Microbiology - Last 24 Hours (Table) 12/13/21 07:40 Blood Culture - Preliminary Blood No Growth after 24 hours 12/13/21 07:48 Blood Culture - Preliminary Blood No Growth after 24 hours Assessment and Plan (1) COVID-19 Current Visit: Yes Status: Acute Code(s): U07.1 - COVID-19 SNOMED Code(s): 260342931 Plan: 1patient presented to hospital with increasing shortness of breath with a cough and fever in this patient did have positive COVID test concerning for COVID- pneumonia patient did not have significant hypoxemia, chest x-ray this morning was negative for pneumonia 2patient to continue the patient on dexamethasone Lovenox zinc and ascorbic acid. 3 droplet isolation and respiratory support. Time with Patient: Less than 30
[2021-12-14 20:28] LABS: Glucose,Whole Blood 281 mg/dL (70-110)
--- NOTE | 2021-12-14 22:49 | PN ---
PROGRESS NOTE SUBJECTIVE: The patient is seen for followup for end-stage renal disease. She is seen on hemodialysis today. No significant complaints. The patient tested positive for COVID-19 PCR. O2 sats at 99% on 2 L nasal cannula. OBJECTIVE: VITAL SIGNS: On examination this morning, blood pressure was 148/62, heart rate 79 per minute. The patient is afebrile. The patient had a temperature of 101.7 degrees Fahrenheit. LUNGS AND HEART: Not examined. EXTREMITIES: Examination of lower extremities shows chronic skin changes with pigmentation and significant edema bilaterally. ABDOMEN: Soft, distended with ascites, currently nontender. SEARCH PLANNER: Grossly intact. LABORATORY DATA: Labs from today show potassium of 5.0 and sodium of 134. ASSESSMENT: 1. End-stage renal disease, on hemodialysis on a Thursday, , Thursday schedule. 2. Volume overload. 3. Chronic kidney disease/mineral bone disorder. 4. History of chronic liver disease with recurrent ascites, needing paracentesis. 5. Congestive heart failure with severe tricuspid regurgitation and pulmonary hypertension. 6. COVID-19 infection, currently 95% to 99% on 2 L nasal cannula. PLAN: Hemodialysis today with goal UF of about 4 L. Continue with the phosphate binders. Continue with treatment for chronic hyperkalemia. MMODL / IJN: [id number] /
[2021-12-14] MEDS: INSULIN DETEMIR (LEVEMIR) 100 UNIT/ML SYR SQ SCH (22:53)
[2021-12-14] MEDS: PANTOPRAZOLE 40 MG TABLET PO SCH (22:54)
[2021-12-14] MEDS: CINACALCET 30 MG TAB PO SCH (22:54)
[2021-12-15] MEDS: HYDROcodone/APAP 7.5-325MG 1 EACH TAB PO SCH ×4 (01:58→23:43)
[2021-12-15] MEDS: FUROSEMIDE 80 MG TAB PO SCH ×2 (01:59→15:05)
[2021-12-15 07:08] LABS: Glucose,Whole Blood 156 mg/dL (70-110)
[2021-12-15] MEDS: INSULIN ASPART (NovoLOG) 100 UNIT/ML VIAL SQ SCH ×4 (08:09→21:38)
[2021-12-15] MEDS: SEVELAMER 800 MG TAB PO SCH ×3 (08:09→18:22)
[2021-12-15] MEDS: ENOXAPARIN 40 MG/0.4 ML SYRINGE SQ SCH (08:10)
[2021-12-15] MEDS: traMADol 50 MG TAB PO SCH ×2 (08:11→21:40)
[2021-12-15] MEDS: GABAPENTIN 100 MG CAP PO SCH ×3 (08:11→21:40)
[2021-12-15] MEDS: ONDANSETRON 4 MG TAB PO SCH ×3 (08:11→21:41)
[2021-12-15] MEDS: METOPROLOL TARTRATE 50 MG TAB PO SCH ×3 (08:12→21:41)
[2021-12-15] MEDS: hydrALAZINE HCL 50 MG TAB PO SCH ×2 (08:12→21:40)
[2021-12-15] MEDS: MULTIVITAMINS, THERA 1 EACH TAB PO SCH (08:12)
[2021-12-15] MEDS: SODIUM ZIRCONIUM CYCLOSILICATE 10 GM PACKET PO SCH (08:12)
[2021-12-15] MEDS: ASPIRIN 325 MG TAB PO SCH (08:12)
[2021-12-15] MEDS: ZINC SULFATE 220 MG CAP PO SCH (08:13)
[2021-12-15] MEDS: cloNIDine HCL 0.1 MG TAB PO SCH ×3 (08:13→21:42)
[2021-12-15] MEDS: amLODIPine 5 MG TAB PO SCH (08:13)
[2021-12-15] MEDS: diazePAM 5 MG TAB PO SCH ×2 (08:13→21:41)
[2021-12-15] MEDS: ASCORBIC ACID 500 MG TAB PO SCH (08:13)
[2021-12-15] MEDS ORDERED: ERGOCALCIFEROL 1,250 MCG (50,000 IU) CAPSULE PO SCH (09:00)
--- NOTE | 2021-12-15 09:25 | P.PN ---
Subjective patient is seen for follow-up for end-stage renal disease. She is status post hemodialysis yesterday with ultrafiltration of 3.8 L. No significant complaints today. Overall feeling better. 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 grossly intact - Labs CBC & Chem 7: 12/13/21 07:43 12/14/21 08:16 Labs: Abnormal Lab Results - Last 24 Hours (Table) 12/14/21 12/14/21 12/14/21 Range/Units 08:16 11:41 16:20 Sodium 134 L (135-145) mmol/L Chloride 94 L (96-109) mmol/L BUN 31.3 H (9.0-27.0) mg/dL Creatinine 5.9 H (0.6-1.5) mg/dL Est GFR (CKD-EPI)AfAm 8.6 L (60.0-200.0) Est GFR (CKD-EPI)NonAf 7.5 L (60.0-200.0) BUN/Creatinine Ratio 5.30 L (12.00-20.00) Ratio Glucose 237 H (70-110) mg/dL POC Glucose (mg/dL) 171 H 256 H (70-110) mg/dL Calcium 8.6 L (8.7-10.3) mg/dL C-Reactive Protein 2.20 H (0.00-0.80) mg/dL 12/14/21 12/15/21 Range/Units 20:26 07:06 Sodium (135-145) mmol/L Chloride (96-109) mmol/L BUN (9.0-27.0) mg/dL Creatinine (0.6-1.5) mg/dL Est GFR (CKD-EPI)AfAm (60.0-200.0) Est GFR (CKD-EPI)NonAf (60.0-200.0) BUN/Creatinine Ratio (12.00-20.00) Ratio Glucose (70-110) mg/dL POC Glucose (mg/dL) 281 H 156 H (70-110) mg/dL Calcium (8.7-10.3) mg/dL C-Reactive Protein (0.00-0.80) mg/dL Microbiology - Last 24 Hours (Table) 12/13/21 07:40 Blood Culture - Preliminary Blood No Growth after 24 hours 12/13/21 07:48 Blood Culture - Preliminary Blood No Growth after 24 hours Assessment and Plan Assessment: 1. End-stage renal disease on hemodialysis on a Thursday schedule 2. Volume overload status post extra treatment of dialysis 3. CK D mineral bone disorder 4. Chronic liver disease with recurrent ascites needing paracentesis on a regular basis 5. COVID-19 infection with minimal respiratory symptoms currently Plan: repeat hemodialysis in a.m. if patient is not discharged, mainly for volume overload
[2021-12-15] MEDS ORDERED: ONDANSETRON 4 MG/2 ML VIAL IVP PRN (10:27)
[2021-12-15 11:16] LABS: Glucose,Whole Blood 145 mg/dL (70-110)
[2021-12-15] MEDS: ACETAMINOPHEN TAB 325 MG TAB PO PRN (11:52)
[2021-12-15] MEDS: DEXAMETHASONE SOD PHOSPHATE 10 MG/ML 1 ML VIAL IV SCH (11:53)
[2021-12-15] MEDS: SILDENAFIL 20 MG TAB PO SCH ×2 (15:05→21:40)
[2021-12-15 16:57] LABS: Glucose,Whole Blood 252 mg/dL (70-110)
[2021-12-15] MEDS: MIDODRINE 5 MG TAB PO SCH (18:22)
[2021-12-15 21:08] LABS: Glucose,Whole Blood 301 mg/dL (70-110)
[2021-12-15] MEDS: INSULIN DETEMIR (LEVEMIR) 100 UNIT/ML SYR SQ SCH (21:39)
[2021-12-15] MEDS: PANTOPRAZOLE 40 MG TABLET PO SCH (21:41)
[2021-12-16] MEDS: FUROSEMIDE 80 MG TAB PO SCH ×2 (03:51→12:17)
--- NOTE | 2021-12-16 07:17 | PN ---
PROGRESS NOTE A 56-year-old white female, COPD, diabetes, end-stage renal disease, left arm fistula, hypertension, dyslipidemia, hypertriglyceridemia, acute pancreatitis, pancreatic resection at , increasing short of breath for 4 days, slight cough, no sputum. No fever. 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 Also, she tested positive for COVID-19. Due to hemodialysis, she is lying in bed, some oral medications. MEDICATIONS: Please see list, include, 1. Acetaminophen. 2. [place]. 3. Amlodipine. 4. Ascorbic acid. 5. Aspirin. 6. Senna. 7. Cellcept. 8. Clonidine. 9. Dexamethasone. 10.Lovenox injection. 11.Diazepam p.r.n. 12.Dextrose p.r.n. 13.Hydralazine 100 mg q.12. 14.Levemir 35 units at night. 15.Metoprolol 50 mg t.i.d. for hypertension and atrial fibrillation. 16.Protonix 40 mg daily for GERD. 17.Ropinirole 1 mg b.i.d. for restless legs syndrome. PHYSICAL EXAMINATION: CARDIOVASCULAR: S1 and S2. ABDOMEN: Distended. LUNGS: Fairly clear. HEART: S1 and S2. HEENT: Normocephalic and atraumatic. EXTREMITIES: 2+ to 3+ edema. MUSCULOSKELETAL: No clubbing, cyanosis. IMAGING STUDIES: EKG showed sinus rhythm. COVID-19 positive. Troponins are negative. White count 1.5, hemoglobin 11.4. Potassium 4.7. Platelets 92. She has a history of pancytopenia in the past. She has severe tricuspid regurgitation, severe pulmonary hypertension, hypertensive heart disease, end-stage renal disease, COVID-19 pneumonitis, ascites secondary to cirrhosis, portal hypertension, hepatosplenomegaly, diabetes mellitus type 2, end-stage kidney disease, dyslipidemia, restless legs syndrome, hypertension, anemia, bone marrow disease, peripheral neuropathy, chronic insomnia, continue dialysis. Pulmonary hypertension, we may have to add other medications to treat this depending how she does. Her brain CT is negative. She saw end-stage renal disease doctor. She was feeling better, status post hemodialysis yesterday, 3.8 L. Her BUN is 31 and creatinine is 5.9. She had volume overload, chronic disease, chronic liver disease, autoimmune hepatitis requiring paracentesis, pulmonary hypertension, severe in nature, COVID-19. Maybe add some sildenafil to help her breathing. Prognosis is guarded. MMODL / IJN: [id number] /
[2021-12-16 07:23] LABS: Glucose,Whole Blood 275 mg/dL (70-110)
--- NOTE | 2021-12-16 08:00 | P.PN ---
Subjective Progress Note Date: 12/15/21 Principal diagnosis: Covid 19 pneumonia Patient is a 56-year-old female with a past medical history significant for end-stage renal disease on hemodialysis, presented to the hospital with a fever and increasing shortness of breath patient did have a positive covid test. On today's evaluation that is 12/15/2021, the patient remains to be afebrile, the patient is breathing slightly comfortably on room air, the patient denies having any chest pain did have a cough but not bringing up any sputum the patient denies abdominal pain no diarrhea Objective - Vital Signs Vital signs: Vital Signs Temp 97.5 F L 12/15/21 14:00 Pulse 57 L 12/15/21 14:00 Resp 18 12/15/21 14:00 BP 117/63 12/15/21 14:00 Pulse Ox 94 L 12/15/21 14:00 FiO2 Intake & Output 12/15/21 12/15/21 12/16/21 06:59 18:59 06:59 Intake Total 480 Output Total 50 Balance -50 480 Intake: Oral 480 Output: Urine 50 Other: # Voids 3 4 # Bowel Movements 1 - Exam GENERAL DESCRIPTION: Middle-aged female lying in bed in no distress RESPIRATORY SYSTEM: Unlabored breathing , decreased breath sounds at bases HEART: S1 S2 regular rate and rhythm , ABDOMEN: Soft , no tenderness EXTREMITIES: No edema feet - Labs CBC & Chem 7: 12/13/21 07:43 12/14/21 08:16 Labs: Abnormal Lab Results - Last 24 Hours (Table) 12/15/21 12/15/21 12/15/21 Range/Units 07:06 11:14 16:55 POC Glucose (mg/dL) 156 H 145 H 252 H (70-110) mg/dL 12/15/21 Range/Units 21:07 POC Glucose (mg/dL) 301 H (70-110) mg/dL Microbiology - Last 24 Hours (Table) 12/13/21 07:40 Blood Culture - Preliminary Blood No Growth after 48 hours 12/13/21 07:48 Blood Culture - Preliminary Blood No Growth after 48 hours Assessment and Plan (1) COVID-19 Current Visit: Yes Status: Acute Code(s): U07.1 - COVID-19 SNOMED Code(s): 578331246 Plan: 1patient presented to hospital with increasing shortness of breath with a cough and fever in this patient did have positive COVID test concerning for COVID- pneumonia patient did not have significant hypoxemia, chest x-ray this morning was negative for pneumonia 2patient to continue the patient on dexamethasone Lovenox zinc and ascorbic acid along with droplet isolation and respiratory support. Time with Patient: Less than 30
[2021-12-16] MEDS: INSULIN ASPART (NovoLOG) 100 UNIT/ML VIAL SQ SCH ×4 (09:30→21:32)
[2021-12-16] MEDS: MIDODRINE 5 MG TAB PO SCH ×3 (09:31→17:49)
[2021-12-16] MEDS: ASCORBIC ACID 500 MG TAB PO SCH (09:31)
[2021-12-16] MEDS: ZINC SULFATE 220 MG CAP PO SCH (09:31)
[2021-12-16] MEDS: MULTIVITAMINS, THERA 1 EACH TAB PO SCH (09:31)
[2021-12-16] MEDS: GABAPENTIN 100 MG CAP PO SCH ×3 (09:31→21:32)
[2021-12-16] MEDS: diazePAM 5 MG TAB PO SCH ×2 (09:31→21:31)
[2021-12-16] MEDS: ASPIRIN 325 MG TAB PO SCH (09:32)
[2021-12-16] MEDS: ONDANSETRON 4 MG TAB PO SCH ×3 (09:32→21:32)
[2021-12-16] MEDS: SEVELAMER 800 MG TAB PO SCH ×3 (09:33→16:48)
[2021-12-16] MEDS: SILDENAFIL 20 MG TAB PO SCH ×3 (09:33→21:32)
[2021-12-16] MEDS: ENOXAPARIN 30 MG/0.3 ML SYRINGE SQ SCH (09:34)
[2021-12-16] MEDS: DEXAMETHASONE SOD PHOSPHATE 10 MG/ML 1 ML VIAL IV SCH (09:34)
[2021-12-16] MEDS: HYDROcodone/APAP 7.5-325MG 1 EACH TAB PO SCH ×3 (09:35→23:08)
[2021-12-16] MEDS: cloNIDine HCL 0.1 MG TAB PO SCH ×3 (09:36→21:34)
[2021-12-16] MEDS: amLODIPine 5 MG TAB PO SCH (09:36)
[2021-12-16] MEDS: hydrALAZINE HCL 50 MG TAB PO SCH ×2 (09:36→21:31)
[2021-12-16] MEDS: METOPROLOL TARTRATE 50 MG TAB PO SCH ×3 (09:36→21:34)
[2021-12-16] MEDS: SODIUM ZIRCONIUM CYCLOSILICATE 10 GM PACKET PO SCH (09:37)
[2021-12-16] MEDS: traMADol 50 MG TAB PO SCH ×2 (09:38→21:31)
--- NOTE | 2021-12-16 09:45 | P.PN ---
Subjective patient is seen for follow-up for end-stage renal disease. Status post extra treatment of dialysis for fluid overload. No significant complaints today except for headache. Overall feeling better. Objective - Vital Signs Vital signs: Vital Signs Temp 98.4 F 12/16/21 05:51 Pulse 48 L 12/16/21 05:51 Resp 14 12/16/21 05:51 BP 113/62 12/16/21 05:51 Pulse Ox 92 L 12/16/21 05:51 FiO2 Intake & Output 12/15/21 12/16/21 12/16/21 18:59 06:59 18:59 Intake Total 480 180 Balance 480 180 Intake: Oral 480 180 Other: Voiding Method Toilet # Voids 4 3 # Bowel Movements 1 - Exam awake, comfortable, not in any acute distress Examination lungs shows decreased breath sounds at the bases. 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 End-stage renal disease on hemodialysis on a Thursday schedule 2. Volume overload status post extra treatment of dialysis 3. CK D mineral bone disorder 4. Chronic liver disease with recurrent ascites needing paracentesis on a regular basis 5. COVID-19 infection with minimal respiratory symptoms currently Plan: Hemodialysis today and then again in a.m.
[2021-12-16 12:04] LABS: Glucose,Whole Blood 195 mg/dL (70-110)
[2021-12-16 16:40] LABS: Glucose,Whole Blood 283 mg/dL (70-110)
[2021-12-16] MEDS: ACETAMINOPHEN TAB 325 MG TAB PO PRN (19:35)
[2021-12-16 20:46] LABS: Glucose,Whole Blood 313 mg/dL (70-110)
[2021-12-16] MEDS: PANTOPRAZOLE 40 MG TABLET PO SCH (21:32)
[2021-12-16] MEDS: SENNOSIDES-DOCUSATE SODIUM 1 EACH TAB PO SCH ×2 (21:32→21:40)
[2021-12-16] MEDS: INSULIN DETEMIR (LEVEMIR) 100 UNIT/ML SYR SQ SCH (23:09)
--- NOTE | 2021-12-16 23:10 | P.PN ---
Subjective Progress Note Date: 12/16/21 Principal diagnosis: Covid 19 pneumonia Patient is a 56-year-old female with a past medical history significant for end-stage renal disease on hemodialysis, presented to the hospital with a fever and increasing shortness of breath patient did have a positive covid test. On today's evaluation that is 12/16/2021, the patient continues to be afebrile, the patient is breathing comfortably on room air, the patient denies having any chest pain did have a cough but not sputum production, the patient denies abdominal pain no diarrhea Objective - Vital Signs Vital signs: Vital Signs Temp 97.8 F 12/16/21 10:30 Pulse 57 L 12/16/21 10:30 Resp 18 12/16/21 10:30 BP 147/68 12/16/21 10:30 Pulse Ox 100 12/16/21 10:30 FiO2 Intake & Output 12/15/21 12/16/21 12/16/21 18:59 06:59 18:59 Intake Total 480 180 296 Balance 480 180 296 Intake: Oral 480 180 296 Other: Voiding Method Toilet Toilet # Voids 4 3 # Bowel Movements 1 - Exam GENERAL DESCRIPTION: Middle-aged female lying in bed in no distress RESPIRATORY SYSTEM: Unlabored breathing , decreased breath sounds at bases HEART: S1 S2 regular rate and rhythm , ABDOMEN: Soft , no tenderness EXTREMITIES: No edema feet - Labs CBC & Chem 7: 12/13/21 07:43 12/14/21 08:16 Labs: Abnormal Lab Results - Last 24 Hours (Table) 12/14/21 12/15/21 12/15/21 Range/Units 08:16 16:55 21:07 POC Glucose (mg/dL) 252 H 301 H (70-110) mg/dL Procalcitonin 0.70 H (0.02-0.09) ng/mL 12/16/21 12/16/21 Range/Units 07:21 12:02 POC Glucose (mg/dL) 275 H 195 H (70-110) mg/dL Procalcitonin (0.02-0.09) ng/mL Microbiology - Last 24 Hours (Table) 12/13/21 07:40 Blood Culture - Preliminary Blood No Growth after 72 hours 12/13/21 07:48 Blood Culture - Preliminary Blood No Growth after 72 hours Assessment and Plan (1) COVID-19 Current Visit: Yes Status: Acute Code(s): U07.1 - COVID-19 SNOMED Code(s): 229707020 Plan: 1patient presented to hospital with increasing shortness of breath with a cough and fever in this patient did have positive COVID test concerning for COVID- pneumonia patient did not have significant hypoxemia, chest x-ray this morning was negative for pneumonia 2patient has shown clinical improvement and will continue the patient on dexamethasone Lovenox zinc and ascorbic acid along with droplet isolation and respiratory support. Time with Patient: Less than 30
[2021-12-17] MEDS: FUROSEMIDE 80 MG TAB PO SCH ×3 (03:33→18:05)
[2021-12-17 06:53] LABS: Glucose,Whole Blood 235 mg/dL (70-110)
[2021-12-17] MEDS: diazePAM 5 MG TAB PO SCH ×2 (07:26→21:11)
[2021-12-17] MEDS: traMADol 50 MG TAB PO SCH ×2 (07:26→20:48)
[2021-12-17] MEDS: GABAPENTIN 100 MG CAP PO SCH ×3 (07:26→21:11)
[2021-12-17] MEDS: ASPIRIN 325 MG TAB PO SCH (07:26)
[2021-12-17] MEDS: hydrALAZINE HCL 50 MG TAB PO SCH ×2 (07:26→21:11)
[2021-12-17] MEDS: amLODIPine 5 MG TAB PO SCH (07:27)
[2021-12-17] MEDS: ZINC SULFATE 220 MG CAP PO SCH (07:27)
[2021-12-17] MEDS: ONDANSETRON 4 MG TAB PO SCH ×3 (07:27→21:11)
[2021-12-17] MEDS: MULTIVITAMINS, THERA 1 EACH TAB PO SCH (07:27)
[2021-12-17] MEDS: ASCORBIC ACID 500 MG TAB PO SCH (07:27)
[2021-12-17] MEDS: METOPROLOL TARTRATE 50 MG TAB PO SCH ×3 (07:27→21:11)
[2021-12-17] MEDS: cloNIDine HCL 0.1 MG TAB PO SCH ×3 (07:27→21:11)
[2021-12-17] MEDS: HYDROcodone/APAP 7.5-325MG 1 EACH TAB PO SCH ×3 (07:27→21:11)
[2021-12-17] MEDS: MIDODRINE 5 MG TAB PO SCH ×3 (07:27→17:09)
[2021-12-17] MEDS: INSULIN ASPART (NovoLOG) 100 UNIT/ML VIAL SQ SCH ×4 (07:27→20:48)
[2021-12-17] MEDS: SEVELAMER 800 MG TAB PO SCH ×3 (07:28→17:09)
[2021-12-17] MEDS: ENOXAPARIN 30 MG/0.3 ML SYRINGE SQ SCH (07:28)
[2021-12-17] MEDS: SODIUM ZIRCONIUM CYCLOSILICATE 10 GM PACKET PO SCH (07:29)
[2021-12-17] MEDS: SILDENAFIL 20 MG TAB PO SCH ×3 (07:29→21:11)
[2021-12-17] MEDS: DEXAMETHASONE SOD PHOSPHATE 10 MG/ML 1 ML VIAL IV SCH (09:09)
--- NOTE | 2021-12-17 11:17 | P.PN ---
Subjective patient is seen for follow-up for end-stage renal disease. Status post extra treatment of dialysis for fluid overload. UF 3.3 L yesterday No significant complaints today Overall feeling better. Objective - Vital Signs Vital signs: Vital Signs Temp 97.9 F 12/17/21 06:44 Pulse 54 L 12/17/21 10:15 Resp 18 12/17/21 10:15 BP 114/68 12/17/21 10:15 Pulse Ox 93 L 12/17/21 10:15 FiO2 Intake & Output 12/16/21 12/17/21 12/17/21 18:59 06:59 18:59 Intake Total 1196 120 Output Total 3300 Balance -2104 120 Weight 77.2 kg Intake: Oral 896 120 Hemodialysis 300 Output: Hemodialysis 3300 Other: Voiding Method Toilet Toilet Toilet # Voids 2 - Exam awake, comfortable, not in any acute distress Examination lungs shows decreased breath sounds at the bases. 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 End-stage renal disease on hemodialysis on a Thursday schedule 2. Volume overload status post extra treatment of dialysis 3. CK D mineral bone disorder 4. Chronic liver disease with recurrent ascites needing paracentesis on a regular basis 5. COVID-19 infection with minimal respiratory symptoms currently Plan: Hemodialysis today Possible discharge post dialysis
[2021-12-17 11:47] LABS: Glucose,Whole Blood 238 mg/dL (70-110)
[2021-12-17 16:40] LABS: Glucose,Whole Blood 266 mg/dL (70-110)
[2021-12-17] MEDS: SENNOSIDES-DOCUSATE SODIUM 1 EACH TAB PO SCH (17:53)
[2021-12-17 19:52] LABS: Glucose,Whole Blood 335 mg/dL (70-110)
[2021-12-17] MEDS: PANTOPRAZOLE 40 MG TABLET PO SCH (20:48)
[2021-12-17] MEDS: CINACALCET 30 MG TAB PO SCH (20:48)
[2021-12-17] MEDS: INSULIN DETEMIR (LEVEMIR) 100 UNIT/ML SYR SQ SCH (20:49)
[2021-12-18] MEDS: FUROSEMIDE 80 MG TAB PO SCH ×2 (02:53→12:36)
[2021-12-18 07:06] LABS: Glucose,Whole Blood 191 mg/dL (70-110)
[2021-12-18 08:40] VITALS: RESP 18
[2021-12-18] MEDS: HYDROcodone/APAP 7.5-325MG 1 EACH TAB PO SCH ×2 (08:48→16:07)
[2021-12-18] MEDS: traMADol 50 MG TAB PO SCH (08:49)
[2021-12-18] MEDS: MULTIVITAMINS, THERA 1 EACH TAB PO SCH (08:50)
[2021-12-18] MEDS: ZINC SULFATE 220 MG CAP PO SCH (08:50)
[2021-12-18] MEDS: ASCORBIC ACID 500 MG TAB PO SCH (08:50)
[2021-12-18] MEDS: GABAPENTIN 100 MG CAP PO SCH ×2 (08:51→16:07)
[2021-12-18] MEDS: ASPIRIN 325 MG TAB PO SCH (08:51)
[2021-12-18] MEDS: ONDANSETRON 4 MG TAB PO SCH ×2 (08:51→16:07)
[2021-12-18] MEDS: MIDODRINE 5 MG TAB PO SCH ×2 (08:51→12:38)
[2021-12-18] MEDS: cloNIDine HCL 0.1 MG TAB PO SCH ×2 (08:52→16:07)
[2021-12-18] MEDS: hydrALAZINE HCL 50 MG TAB PO SCH (08:52)
[2021-12-18] MEDS: INSULIN ASPART (NovoLOG) 100 UNIT/ML VIAL SQ SCH ×2 (08:53→12:38)
[2021-12-18] MEDS: METOPROLOL TARTRATE 50 MG TAB PO SCH ×2 (08:53→16:07)
[2021-12-18] MEDS: SEVELAMER 800 MG TAB PO SCH ×2 (08:53→12:36)
[2021-12-18] MEDS: DEXAMETHASONE SOD PHOSPHATE 10 MG/ML 1 ML VIAL IV SCH (08:54)
[2021-12-18] MEDS: amLODIPine 5 MG TAB PO SCH (08:54)
[2021-12-18] MEDS: ENOXAPARIN 30 MG/0.3 ML SYRINGE SQ SCH (08:55)
[2021-12-18] MEDS: diazePAM 5 MG TAB PO SCH (08:55)
[2021-12-18] MEDS: SILDENAFIL 20 MG TAB PO SCH ×2 (08:55→16:08)
[2021-12-18 10:55] VITALS: BP 137/65; PULSE 56; TEMP 98.2
[2021-12-18 11:45] LABS: Glucose,Whole Blood 424 mg/dL (70-110)
--- NOTE | 2021-12-18 12:14 | P.PN ---
Subjective patient is seen for follow-up for end-stage renal disease. Status post extra treatment of dialysis for fluid overload. Complaining of heartburn today Overall feeling better. 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 End-stage renal disease on hemodialysis on a Thursday aldo ramos 2. Volume overload status post extra treatment of dialysis 3. CK D mineral bone disorder 4. Chronic liver disease with recurrent ascites needing paracentesis on a regular basis 5. COVID-19 infection with minimal respiratory symptoms currently Plan: Patient can be discharged from nephrology standpoint. Next hemodialysis tomorrow 12/19/2021 which can be done as outpatient
[2021-12-18] MEDS: PANTOPRAZOLE 40 MG TABLET PO SCH (12:44)
[2021-12-18] MEDS ORDERED: dexAMETHasone 4 MG TAB PO STA (15:35)
--- NOTE | 2021-12-18 16:27 | P.PN ---
Subjective Progress Note Date: 12/17/21 Principal diagnosis: Covid 19 pneumonia Patient is a 56-year-old female with a past medical history significant for end-stage renal disease on hemodialysis, presented to the hospital with a fever and increasing shortness of breath patient did have a positive covid test. On today's evaluation that is 12/17/2021, the patient remains to be afebrile, the patient is breathing comfortably on room air, the patient denies chest pain, the patient did have a cough with occasional clear sputum production, the patient denies abdominal pain no diarrhea Objective - Vital Signs Vital signs: Vital Signs Temp 97.9 F 12/17/21 06:44 Pulse 54 L 12/17/21 10:15 Resp 18 12/17/21 10:15 BP 114/68 12/17/21 10:15 Pulse Ox 93 L 12/17/21 10:15 FiO2 Intake & Output 12/16/21 12/17/21 12/17/21 18:59 06:59 18:59 Intake Total 1196 120 Output Total 3300 Balance -2104 120 Weight 77.2 kg Intake: Oral 896 120 Hemodialysis 300 Output: Hemodialysis 3300 Other: Voiding Method Toilet Toilet Toilet # Voids 2 - Exam GENERAL DESCRIPTION: Middle-aged female lying in bed in no distress RESPIRATORY SYSTEM: Unlabored breathing , decreased breath sounds at bases HEART: S1 S2 regular rate and rhythm , ABDOMEN: Soft , no tenderness EXTREMITIES: No edema feet - Labs CBC & Chem 7: 12/13/21 07:43 12/14/21 08:16 Labs: Abnormal Lab Results - Last 24 Hours (Table) 12/16/21 12/16/21 12/17/21 Range/Units 16:39 20:43 06:51 POC Glucose (mg/dL) 283 H 313 H 235 H (70-110) mg/dL 12/17/21 Range/Units 11:46 POC Glucose (mg/dL) 238 H (70-110) mg/dL Microbiology - Last 24 Hours (Table) 12/13/21 07:48 Blood Culture - Preliminary Blood No Growth after 96 hours 12/13/21 07:40 Blood Culture - Preliminary Blood No Growth after 96 hours Assessment and Plan (1) COVID-19 Current Visit: Yes Status: Acute Code(s): U07.1 - COVID-19 SNOMED Code(s): 857036985 Plan: 1patient presented to hospital with increasing shortness of breath with a cough and fever in this patient did have positive COVID test concerning for COVID- pneumonia patient did not have significant hypoxemia, chest x-ray this morning was negative for pneumonia 2patient has clinical improvement and is currently being treated with dexamet hasone Lovenox zinc and ascorbic acid along with droplet isolation and respiratory support. Time with Patient: Less than 30
--- NOTE | 2021-12-18 16:28 | P.PN ---
Subjective Progress Note Date: 12/18/21 Principal diagnosis: Covid 19 pneumonia Patient is a 56-year-old female with a past medical history significant for end-stage renal disease on hemodialysis, presented to the hospital with a fever and increasing shortness of breath patient did have a positive covid test. On today's evaluation that is 12/18/2021, the patient denies any fever or any chills, the patient is breathing comfortably on room air, the patient denies chest pain, the patient cough has decreased in intensity with occasional sputum no hemoptysis, the patient denies having any nausea no vomiting no abdominal pain or diarrhea Objective - Vital Signs Vital signs: Vital Signs Temp 98.2 F 12/18/21 10:54 Pulse 56 L 12/18/21 10:54 Resp 18 12/18/21 10:54 BP 137/65 12/18/21 10:54 Pulse Ox 94 L 12/18/21 10:54 FiO2 Intake & Output 12/17/21 12/18/21 12/18/21 18:59 06:59 18:59 Intake Total 200 Balance 200 Weight 79.5 kg Intake: Oral 200 Other: Voiding Method Toilet Toilet Toilet # Voids 1 3 - Exam GENERAL DESCRIPTION: Middle-aged female lying in bed in no distress RESPIRATORY SYSTEM: Unlabored breathing , decreased breath sounds at bases HEART: S1 S2 regular rate and rhythm , ABDOMEN: Soft , no tenderness EXTREMITIES: No edema feet - Labs CBC & Chem 7: 12/13/21 07:43 12/14/21 08:16 Labs: Abnormal Lab Results - Last 24 Hours (Table) 12/17/21 12/17/21 12/18/21 Range/Units 16:39 19:51 07:05 POC Glucose (mg/dL) 266 H 335 H 191 H (70-110) mg/dL 12/18/21 Range/Units 11:44 POC Glucose (mg/dL) 424 H (70-110) mg/dL Microbiology - Last 24 Hours (Table) 12/13/21 07:40 Blood Culture - Preliminary Blood No Growth after 120 hours 12/13/21 07:48 Blood Culture - Preliminary Blood No Growth after 120 hours Assessment and Plan (1) COVID-19 Current Visit: Yes Status: Acute Code(s): U07.1 - COVID-19 SNOMED Code(s): 955285757 Plan: 1patient presented to hospital with increasing shortness of breath with a cough and fever in this patient did have positive COVID test concerning for COVID- pneumonia patient did not have significant hypoxemia, chest x-ray this morning was negative for pneumonia 2patient has shown overall clinical improvement with the current treatment of dexamethasone Lovenox zinc and ascorbic acid, no need for any systemic antibiotics Time with Patient: Less than 30
== END 2021-12-18 17:02 | disposition home or self-care (01) | DRG 177 ==
LOC: EC 06:24 → 4SSUR 09:22
PROVIDERS: ADMIT Family Medicine; ATTEND Family Medicine
PROC: 5A1D70Z Performance of Urinary Filtration, Intermittent, Less than 6 Hours Per Day (ICD-10-PCS; principal; 2021-12-13)
PROC: 8E0ZXY6 Isolation (ICD-10-PCS; 2021-12-13)
DX: U07.1 COVID-19 (principal); I50.33 Acute on chronic diastolic (congestive) heart failure; J12.82 Pneumonia due to coronavirus disease 2019; N18.6 End stage renal disease; I13.2 Hypertensive heart and chronic kidney disease with heart failure and with stage 5 chronic kidney disease, or end stage renal disease; K76.6 Portal hypertension; R18.8 Other ascites; J44.0 Chronic obstructive pulmonary disease with (acute) lower respiratory infection; E11.22 Type 2 diabetes mellitus with diabetic chronic kidney disease; E11.65 Type 2 diabetes mellitus with hyperglycemia; Z99.2 Dependence on renal dialysis; D63.1 Anemia in chronic kidney disease; M89.8X9 Other specified disorders of bone, unspecified site; E78.5 Hyperlipidemia, unspecified; I27.29 Other secondary pulmonary hypertension; K76.0 Fatty (change of) liver, not elsewhere classified; K74.69 Other cirrhosis of liver; K75.4 Autoimmune hepatitis; I07.1 Rheumatic tricuspid insufficiency; E11.42 Type 2 diabetes mellitus with diabetic polyneuropathy; G25.81 Restless legs syndrome; E66.9 Obesity, unspecified; F51.04 Psychophysiologic insomnia; Z68.31 Body mass index [BMI] 31.0-31.9, adult; I25.10 Atherosclerotic heart disease of native coronary artery without angina pectoris; E87.5 Hyperkalemia; E78.1 Pure hyperglyceridemia; R09.02 Hypoxemia; Z90.410 Acquired total absence of pancreas; E87.70 Fluid overload, unspecified; Z79.4 Long term (current) use of insulin; Z95.2 Presence of prosthetic heart valve; Z79.899 Other long term (current) drug therapy; Z79.82 Long term (current) use of aspirin; Z83.3 Family history of diabetes mellitus; Z82.49 Family history of ischemic heart disease and other diseases of the circulatory system; Z80.1 Family history of malignant neoplasm of trachea, bronchus and lung
CPT/HCPCS: 36415; 70450; 71045; 71046; 76705; 80053; 83605; 83615; 83735; 83880; 84145; 84484; 85025; 85379; 85610; 85730; 86140; 87040; 87635; 90935; 93005; 94760; 96374; 99285

== ENCOUNTER → 2022-01-24 | Outpatient (CLI) | payer MEDICARE, OTHER | END | disposition home or self-care (01) | LOC: LABWHC1 11:14 | PROVIDERS: ATTEND Podiatrist | DX: L97.821 Non-pressure chronic ulcer of other part of left lower leg limited to breakdown of skin (principal); I73.89 Other specified peripheral vascular diseases; E11.42 Type 2 diabetes mellitus with diabetic polyneuropathy | CPT/HCPCS: 36415; 83036; 84134 ==

== ENCOUNTER 2022-01-29 16:43 | Observation (INO) | payer MEDICARE, OTHER ==
[2022-01-29 17:43] LABS: Anisocytosis Slight; Basophils % (A) 0 %; Eosinophils % (A) 1 %; HCT 32.8 % (34.0-46.0); HGB 10.2 gm/dL (11.4-16.0); Hypochromasia Moderate; Lymphocytes # (A) 0.4 k/uL (1.0-4.8); Lymphocytes % (A) 14 %; MCH 30.4 pg (25.0-35.0); MCHC 31.2 g/dL (31.0-37.0); MCV 97.6 fL (80.0-100.0); Macrocytosis Slight; Mean Platelet Volume 8.5; Monocytes # (A) 0.2 k/uL (0-1.0); Monocytes % (A) 6 %; Neutrophils # (A) 2.4 k/uL (1.3-7.7); Neutrophils % (A) 78 %; RBC 3.36 m/uL (3.80-5.40); RDW 17.5 % (11.5-15.5); WBC 3.1 k/uL (3.8-10.6)
--- NOTE | 2022-01-29 17:45 | ED ---
General Adult HPI - General Chief complaint: Chest Pain Stated complaint: chest pain, sob Time Seen by Provider: 01/29/22 17:07 Source: patient Mode of arrival: ambulatory Limitations: no limitations - History of Present Illness Initial comments: Dictation was produced using [employer] dictation software. please excuse any grammatical, word or spelling errors. Chief Complaint: 56-year-old female multiple comorbidities presents emergency department for exertional dyspnea and chest pain History of Present Illness: Patient's 56-year-old female multiple comorbidities. She presents to the ER for multiple days of exertional chest pain and shortness of breath. Patient has history of heart failure. She does also have a history of liver disease. Denies any cough. She reports some sharp lower bilateral anterior chest pain whenever she takes a deep breath. Denies any lower extremities symptoms. Patient has any symptoms at the bedside currently. Denies any constitutional symptoms. The ROS documented in this emergency department record has been reviewed and confirmed by me. Those systems with pertinent positive or negative responses have been documented in the HPI. All other systems are other negative and/or noncontributory. PHYSICAL EXAM: General Impression: Alert and oriented x3, not in acute distress HEENT: Normocephalic atraumatic, extra-ocular movements intact, pupils equal and reactive to light bilaterally, mucous membranes moist. Cardiovascular: Heart regular rate and rhythm Chest: Able to complete full sentences, no retractions, no tachypnea Abdomen: abdomen soft, non-tender, positive fluid wave Musculoskeletal: Pulses present and equal in all extremities, no peripheral edema Motor: no focal deficits noted Neurological: CN II-XII grossly intact, no focal motor or sensory deficits noted Skin: Intact with no visualized rashes Psych: Normal affect and mood ED course: 56-year-old female presents emergency department for exertional chest pain and shortness of breath. Symptoms are atypical with typical features. Vital signs upon arrival are within acceptable limits. Patient reports history of A. fib with a has not taken and a correlation medications. She is unable to explain to me why she is not on anticoagulation or if she is ever been told why she is not on anticoagulation. She has seen a deputy editor in chief for A. fib in the past. Laboratory evaluation obtained. CBC appears to be baseline. Coag panel is unremarkable. Metabolic panel shows current of 6.49 with a BUN 45. Patient gets dialysis Thursday was a Thursday. 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 Troponin is 0.018, brain atrophy peptide is 21,500. Chest x-ray suggests heart failure. Patient denies missing recent dialysis. Denies any chest pain at this time. Patient is non-dyspneic at the bedside. Patient be admitted to hospitalist with consultation to nephrology and cardiology. Patient given aspirin for concerns of ACS. EKG interpretation: Ventricular rate 52, computer reads A. fib however there is clearly discernible P waves before the QRS complex in V2. Second presents sinus rhythm as opposed A. fib.. QRS 125, QTc 462 no QTC prolongation, no ST or T- wave changes noted. - Related Data Home Medications Medication Instructions Recorded Confirmed cloNIDine HCL [Catapres] 0.3 mg PO TID 12/16/16 12/13/21 hydrALAZINE HCL [Apresoline] 100 mg PO Q12H 12/14/18 12/13/21 HYDROcodone/APAP 7.5-325MG [[place] 1 tab PO TID 11/08/19 12/13/21 7.5-325] traMADol HCL [Ultram] 50 mg PO Q12H 05/13/20 12/13/21 Omeprazole 20 mg PO HS 08/02/20 12/13/21 Lidocaine-Prilocaine Cream [Emla 1 applic TOPICAL TUTHSA PRN 06/18/21 12/13/21 Cream 2.5%/2.5%] Ondansetron [Zofran] 4 mg PO TID 06/18/21 12/13/21 rOPINIRole HCL [Requip] 1 mg PO BID 06/18/21 12/13/21 Gabapentin [Neurontin] 100 mg PO TID 07/08/21 12/13/21 Cinacalcet [Sensipar] 30 mg PO TUTHSA 07/29/21 12/13/21 diazePAM [Valium] 5 mg PO BID 08/08/21 12/13/21 Furosemide [Lasix] 80 mg PO BID@0300,1300 09/26/21 12/13/21 Ergocalciferol (Vitamin D2) 1,250 mcg PO RIVERA 10/07/21 12/13/21 [Drisdol (50,000 Iu)] INSULIN LISPRO (HumaLOG) [humaLOG] See Protocol SQ AC-TID 11/30/21 12/13/21 Metoprolol Tartrate [Lopressor] 50 mg PO TID 12/13/21 12/13/21 Multivitamins, Thera [Multivitamin 1 tab PO DAILY 12/13/21 12/13/21 (formulary)] Previous Rx's Medication Instructions Recorded Aspirin 325 mg PO DAILY 90 Days #90 tab 12/01/21 amLODIPine [Norvasc] 5 mg PO DAILY 30 Days #30 tab 12/01/21 Insulin Detemir (Levemir) [Levemir] 35 unit SQ HS each 12/17/21 Midodrine [ProAmatine] 5 mg PO AC-TID tab 12/17/21 Sevelamer [Renvela] 1,600 mg PO TID-W/MEALS 30 Days 12/17/21 #90 tab Sildenafil [Revatio] 20 mg PO TID 30 Days #90 tab 12/17/21 Zinc Sulfate [Orazinc] 220 mg PO DAILY 10 Days #10 cap 12/17/21 dexAMETHasone ORAL [Hexadrol] 4 mg PO ONCE 7 Days #7 tab 12/18/21 Allergies Allergy/AdvReac Type Severity Reaction Status Date / Time hydromorphone [From Dilaudid] Allergy Swelling Verified 01/29/22 16:55 Anesthetics - Amide Type - AdvReac cardiac Verified 01/29/22 16:55 Select A arrest Anesthetics - Andree Type- AdvReac cardiac Verified 01/29/22 16:55 Parabens arrest ciprofloxacin [From Cipro] AdvReac AFFECTED Verified 01/29/22 16:55 EYESIGHT ciprofloxacin HCl AdvReac AFFECTED Verified 01/29/22 16:55 [From Cipro] EYESIGHT Iodinated Contrast Media AdvReac RENAL Verified 01/29/22 16:55 FAILURE Review of Systems ROS Statement: Those systems with pertinent positive or pertinent negative responses have been documented in the HPI. ROS Other: All systems not noted in ROS Statement are negative. Past Medical History Past Medical History: Blood Disorder, Coronary Artery Disease (CAD), Chest Pain / Angina, Heart Failure, COPD, Diabetes Mellitus, Dialysis, Eye Disorder, Hyperlipidemia, Hypertension, Liver Disease, Pneumonia, Renal Disease Additional Past Medical History / Comment(s): Pt admitted to [facility] on 11/30/21 with exacerbation CHF. 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 History of Any Multi-Drug Resistant Organisms: MRSA Date of last positivie culture/infection: 08-02-20 MDRO Source:: Blood Past Surgical History: Cardiac Valve Replacement, Orthopedic Surgery, Uterine Ablation Additional Past Surgical History / Comment(s): Colonoscopy with polypectomy/biopsy, pancreatic resection at [facility] 2009, bone marrow biopsies X2, dialysis chest port X3 with removals, left arm shunt placement for dialysis and a revision done with shunt, left forearm vein revision, liver biopsy, [facility]. paracentesis procedures, bilateral cataract removals/lens implants, then laser eye surgery to remove film on lenses, dental surgery. Past Anesthesia/Blood Transfusion Reactions: No Reported Reaction Additional Past Anesthesia/Blood Transfusion Reaction / Comment(s): Pt allergic to Amide type anesthesia/andree type parabins. Pt has received blood t ransfusions without reaction. Past Psychological History: Anxiety Smoking Status: Never smoker Past Alcohol Use History: None Reported Past Drug Use History: None Reported - Past Family History Brother(s) Family Medical History: No Reported History Mother Family Medical History: Cancer, Congestive Heart Failure (CHF), Diabetes Mellitus Additional Family Medical History / Comment(s): Throat cancer. Father Family Medical History: Hypertension Additional Family Medical History / Comment(s): Alcoholism. General Exam Limitations: no limitations Course Vital Signs 01/29/22 01/29/22 01/29/22 16:53 17:09 17:30 Temperature 97.5 F L Pulse Rate 56 L 53 L 53 L Respiratory 16 25 H 16 Rate Blood Pressure 149/72 O2 Sat by Pulse 99 95 97 Oximetry 01/29/22 01/29/22 18:00 18:30 Temperature Pulse Rate 59 L 52 L Respiratory 16 11 L Rate Blood Pressure 130/70 O2 Sat by Pulse 95 98 Oximetry Medical Decision Making - Lab Data Result diagrams: 01/29/22 17:38 01/29/22 17:38 Lab Results 01/29/22 01/29/22 01/29/22 Range/Units 17:38 17:38 17:38 WBC 3.1 L (3.8-10.6) k/uL RBC 3.36 L (3.80-5.40) m/uL Hgb 10.2 L (11.4-16.0) gm/dL Hct 32.8 L (34.0-46.0) % MCV 97.6 (80.0-100.0) fL MCH 30.4 (25.0-35.0) pg MCHC 31.2 (31.0-37.0) g/dL RDW 17.5 H (11.5-15.5) % Plt Count 79 L (150-450) k/uL MPV 8.5 Neutrophils % 78 % Lymphocytes % 14 % Monocytes % 6 % Eosinophils % 1 % Basophils % 0 % Neutrophils # 2.4 (1.3-7.7) k/uL Lymphocytes # 0.4 L (1.0-4.8) k/uL Monocytes # 0.2 (0-1.0) k/uL Eosinophils # 0.0 (0-0.7) k/uL Basophils # 0.0 (0-0.2) k/uL Manual Slide Review Performed Polychromasia Present Hypochromasia Moderate Anisocytosis Slight Macrocytosis Slight PT 11.0 (9.0-12.0) sec INR 1.0 (<1.2) APTT 25.3 (22.0-30.0) sec Sodium 138 (137-145) mmol/L Potassium 4.4 (3.5-5.1) mmol/L Chloride 92 L (98-107) mmol/L Carbon Dioxide 25 (22-30) mmol/L Anion Gap 21 mmol/L BUN 45 H (7-17) mg/dL Creatinine 6.49 H (0.52-1.04) mg/dL Est GFR (CKD-EPI)AfAm 8 (>60 ml/min/1.73 sqM) Est GFR (CKD-EPI)NonAf 7 (>60 ml/min/1.73 sqM) Glucose 143 H (74-99) mg/dL Calcium 9.2 (8.4-10.2) mg/dL Magnesium 2.0 (1.6-2.3) mg/dL Total Bilirubin 0.7 (0.2-1.3) mg/dL AST 20 (14-36) U/L ALT 10 (4-34) U/L Alkaline Phosphatase 112 (38-126) U/L Troponin I (0.000-0.034) ng/mL NT-Pro-B Natriuret Pep pg/mL Total Protein 7.1 (6.3-8.2) g/dL Albumin 4.5 (3.5-5.0) g/dL 01/29/22 01/29/22 Range/Units 17:38 17:38 WBC (3.8-10.6) k/uL RBC (3.80-5.40) m/uL Hgb (11.4-16.0) gm/dL Hct (34.0-46.0) % MCV (80.0-100.0) fL MCH (25.0-35.0) pg MCHC (31.0-37.0) g/dL RDW (11.5-15.5) % Plt Count (150-450) k/uL MPV Neutrophils % % Lymphocytes % % Monocytes % % Eosinophils % % Basophils % % Neutrophils # (1.3-7.7) k/uL Lymphocytes # (1.0-4.8) k/uL Monocytes # (0-1.0) k/uL Eosinophils # (0-0.7) k/uL Basophils # (0-0.2) k/uL Manual Slide Review Polychromasia Hypochromasia Anisocytosis Macrocytosis PT (9.0-12.0) sec INR (<1.2) APTT (22.0-30.0) sec Sodium (137-145) mmol/L Potassium (3.5-5.1) mmol/L Chloride (98-107) mmol/L Carbon Dioxide (22-30) mmol/L Anion Gap mmol/L BUN (7-17) mg/dL Creatinine (0.52-1.04) mg/dL Est GFR (CKD-EPI)AfAm (>60 ml/min/1.73 sqM) Est GFR (CKD-EPI)NonAf (>60 ml/min/1.73 sqM) Glucose (74-99) mg/dL Calcium (8.4-10.2) mg/dL Magnesium (1.6-2.3) mg/dL Total Bilirubin (0.2-1.3) mg/dL AST (14-36) U/L ALT (4-34) U/L Alkaline Phosphatase (38-126) U/L Troponin I 0.018 (0.000-0.034) ng/mL NT-Pro-B Natriuret Pep 55044 pg/mL Total Protein (6.3-8.2) g/dL Albumin (3.5-5.0) g/dL Disposition Clinical Impression: Chest pain, Fluid overload Disposition: ADMITTED IP TO THIS HOSP Condition: Fair Referrals: David Bragg MD [Primary Care Provider] - 1-2 days Decision Time: 19:56
[2022-01-29 17:52] LABS: Albumin 4.5 g/dL (3.5-5.0); Calcium 9.2 mg/dL (8.4-10.2); Potassium 4.4 mmol/L (3.5-5.1); Total Bilirubin 0.7 mg/dL (0.2-1.3); Total Protein 7.1 g/dL (6.3-8.2)
[2022-01-29 18:13] LABS: Partial Thromboplastin Time 25.3 sec (22.0-30.0)
--- NOTE | 2022-01-29 18:31 | XR ---
EXAMINATION TYPE: XR chest 2V DATE OF EXAM: 01/29/2022 5:47 PM COMPARISON: Chest radiographs from 12/14/2021. TECHNIQUE: XR chest 2V Frontal and lateral views of the chest. CLINICAL INDICATION:Female, 56 years old with history of dyspnea; FINDINGS: Lungs/Pleura: There is no evidence of pleural effusion, focal consolidation, or pneumothorax. Pulmonary vascularity: Mild pulmonary vascular congestion. Heart/mediastinum: Cardiomediastinal silhouette is enlarged and stable. Post aortic valve repair sheldon nges. Musculoskeletal: No acute osseous pathology. Midline sternotomy wires are noted. IMPRESSION: Cardiomegaly and mild pulmonary vascular congestion. Correlate with BNP for congestive heart failure.
[2022-01-29 19:33] LABS: Platelet Count 79 k/uL (150-450)
[2022-01-29] MEDS ORDERED: ASPIRIN 81 MG PO STA (19:33)
[2022-01-29 19:35] LABS: Polychromasia Present
[2022-01-29] MEDS ORDERED: NITROGLYCERIN SL TABS 0.4 MG TAB SUBLINGUAL PRN (19:54)
[2022-01-29] MEDS ORDERED: MORPHINE SULFATE 4 MG/ML SYRINGE IVP STA (22:03)
[2022-01-30] MEDS ORDERED: MORPHINE SULFATE 4 MG/ML SYRINGE IV STA (04:45)
[2022-01-30] MEDS: METOPROLOL TARTRATE 50 MG TAB PO SCH ×3 (08:50→22:00)
[2022-01-30] MEDS: amLODIPine 5 MG TAB PO SCH (08:50)
[2022-01-30] MEDS: ASPIRIN 325 MG TAB PO SCH (08:50)
[2022-01-30] MEDS: hydrALAZINE HCL 50 MG TAB PO SCH ×4 (08:50→22:03)
--- NOTE | 2022-01-30 09:22 | P.CRDCN ---
History of Present Illness History of present illness: This is a pleasant 56-year-old female past medical history significant for end-stage renal disease on hemodialysis, infective endocarditis status post mitral valve repair in march 2020, hypertension, dyslipidemia, diabetes mellitus, history of liver disease, ascities, pulmonary hypertension, chronic pancreatitis s/p partial pancratectomy and chronic heart failure. She follows in the office with Dr. Tesfaye. We have been asked to see in consultation for chest pain. Patient presents emergency department with concerns for increased bilateral lower extremity edema, pain, concern for a left foot infection. She also endorses symptoms of shortness of breath, orthopnea, PND that began on Thursday morning. She states on Thursday she went to dialysis she states she was seen by her cyber software engineer and her medications were adjusted and she underwent dialysis with no complaints/issues. She denies any chest pain on exam, per ER note she was complaining of chest pain with deep breathing. She denies any lightheadedness, dizziness, palpitations, syncope or near syncope. DIAGNOSTICS * EKG sinus bradycardia, heart rate 58, right bundle branch block, PACs * Cardiac catheterization in 2018 revealed normal coronary arteries * Chest x-ray with cardiomegaly, mild pulmonary vascular congestion * Echocardiogram on 01/2021 revealed an EF 5560%, moderate concentric LVH, trace mitral regurgitation, no stenosis of the bioprosthetic mitral valve, severe tricuspid regurgitation, severe pulmonary hypertension * TK performed 06/2020 revealed mildly impaired LV function with EF 40-45%, normally functioning bioprosthetic mitral valve and possible vegetation of the lateral wall of the LV. According to the patient she was subsequently transferred at that time to [facility] for closer evaluation and was told this was scar tissue and not recurrent endocarditis. * Laboratory data reviewed, WBC 3.1, hemoglobin 10.2, platelets 79, sodium 138, potassium 4.4, BUN 45, serum crit 6.4, troponin negative 3, proBNP 21,500 * Current daily cardiac medications include atorvastatin 40 mg at bedtime, Lasix 40 mg daily, Lopressor 50 mg TID, and hydralazine 100 mg 4 times a day. REVIEW OF SYSTEMS At the time of my exam: CONSTITUTIONAL: Denies fever or chills. CARDIOVASCULAR: Denies shortness of breath Denies orthopnea, PND, palpitations. RESPIRATORY: Denies cough. GASTROINTESTINAL: Complains of abdominal fullness. Denies diarrhea, constipation, Reports nausea and vomiting. MUSCULOSKELETAL: Denies myalgias. NEUROLOGIC: Denies numbness, tingling, headacbe or weakness. ENDOCRINE: Denies fatigue, weight change, polydipsia or polyurina. GENITOURINARY: Denies burning, hematuria or urgency with micturation. HEMATOLOGIC: Denies history of anemia or bleeding. PHYSICAL EXAMINATION Blood pressure CONSTITUTIONAL: No apparent distress. HEENT: Head is normocephalic. Pupils are equal, round. Sclerae anicteric. Mucous membranes of the mouth are moist. No JVD CHEST EXAMINATION: Lungs are clear to auscultation. No chest wall tenderness is noted on palpation or with deep breathing. HEART EXAMINATION: Regular rate and rhythm. S1, S2 heard. Systolic ejection murmur apex. no gallops or rub. ABDOMEN: Soft, nontender. Positive bowel sounds. Distended, tympanic with ascites. EXTREMITIES: 2+ peripheral pulses, 1+ bilateral lower extremity pitting edema and no calf tenderness. NEUROLOGIC EXAMINATION: Patient is awake, alert and oriented x3. ASSESSMENT Chest discomfort, patient denies on exam, does endorse some intermittent shortness of breath, acute coronary syndrome has ruled out. Troponin negative x 3. no evidence of ischemia on EKG. Chronic heart failure with preserved ejection fraction Chronic lower extremity edema and pain Chronic lower extremity ulcers Severe pulmonary hypertension Valvular heart disease s/p tissue mitral valve repair in the setting of endocarditis Chronic liver disease Hypertension End stage renal disease on HD Anemia Diabetes mellitus type 2 Dyslipidemia Thrombocytopenia PLAN Patient symptoms appear to be chronic, she does not appear to be in acute heart failure, acute coronary syndrome has been ruled out. Obtain 2-D echocardiogram Resume cardiac medications Nephrology consulted Further recommendations based on clinical course Nurse practitioner note has been reviewed by physician. Signing provider agrees with the documented findings, assessment, and plan of care. Past Medical History Past Medical History: Blood Disorder, Coronary Artery Disease (CAD), Chest Pain / Angina, Heart Failure, COPD, Diabetes Mellitus, Dialysis, Eye Disorder, Hyperlipidemia, Hypertension, Liver Disease, Pneumonia, Renal Disease Additional Past Medical History / Comment(s): Pt admitted to [facility] on 11/30/21 with exacerbation CHF. 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 History of Any Multi-Drug Resistant Organisms: MRSA Date of last positivie culture/infection: 08-02-20 MDRO Source:: Blood Past Surgical History: Cardiac Valve Replacement, Orthopedic Surgery, Uterine Ablation Additional Past Surgical History / Comment(s): Colonoscopy with polypectomy/biopsy, pancreatic resection at [facility] 2009, bone marrow biopsies X2, dialysis chest port X3 with removals, left arm shunt placement for dialysis and a revision done with shunt, left forearm vein revision, liver biopsy, mitral valve repacement 2019 at [facility],. paracentesis procedures, bilateral cataract removals/lens implants, then laser eye surgery to remove film on lenses, dental surgery. Past Anesthesia/Blood Transfusion Reactions: No Reported Reaction Additional Past Anesthesia/Blood Transfusion Reaction / Comment(s): Pt allergic to Amide type anesthesia/andree type parabins. Pt has received blood transfusions without reaction. Past Psychological History: Anxiety Smoking Status: Never smoker Past Alcohol Use History: None Reported Past Drug Use History: None Reported - Past Family History Brother(s) Family Medical History: No Reported History Mother Family Medical History: Cancer, Congestive Heart Failure (CHF), Diabetes Mellitus Additional Family Medical History / Comment(s): Throat cancer. Father Family Medical History: Hypertension Additional Family Medical History / Comment(s): Alcoholism. Medications and Allergies Home Medications Medication Instructions Recorded Confirmed Type cloNIDine HCL [Catapres] 0.3 mg PO TID 12/16/16 01/29/22 History hydrALAZINE HCL [Apresoline] 100 mg PO QID 12/14/18 01/29/22 History HYDROcodone/APAP 7.5-325MG [[place] 1 tab PO TID 11/08/19 01/29/22 History 7.5-325] traMADol HCL [Ultram] 50 mg PO BID PRN 05/13/20 01/29/22 History Omeprazole 20 mg PO HS 08/02/20 01/29/22 History Lidocaine-Prilocaine Cream [Emla 1 applic TOPICAL TUTHSA PRN 06/18/21 01/29/22 History Cream 2.5%/2.5%] Ondansetron [Zofran] 4 mg PO TID PRN 06/18/21 01/29/22 History rOPINIRole HCL [Requip] 1 mg PO BID 06/18/21 01/29/22 History Gabapentin [Neurontin] 100 mg PO TID 07/08/21 01/29/22 History diazePAM [Valium] 5 mg PO HS 08/08/21 01/29/22 History Furosemide [Lasix] 80 mg PO BID@0300,1300 09/26/21 01/29/22 History INSULIN LISPRO (HumaLOG) [humaLOG] See Protocol SQ AC-TID 11/30/21 01/29/22 History Aspirin 325 mg PO DAILY 90 Days #90 tab 12/01/21 01/29/22 Rx amLODIPine [Norvasc] 5 mg PO DAILY 30 Days #30 tab 12/01/21 01/29/22 Rx Metoprolol Tartrate [Lopressor] 50 mg PO TID 12/13/21 01/29/22 History Sildenafil [Revatio] 20 mg PO TID 30 Days #90 tab 12/17/21 01/29/22 Rx Zinc Sulfate [Orazinc] 220 mg PO DAILY 10 Days #10 cap 12/17/21 01/29/22 Rx Calcium Carbonate [Tums] 500 mg PO TID PRN 01/29/22 01/29/22 History INSULIN LISPRO (HumaLOG) [humaLOG] 10 units SQ AC-TID 01/29/22 01/29/22 History Insulin Glargine,Hum.rec.anlog 45 units SQ HS 01/29/22 01/29/22 History [Lantus Solostar Pen] Melatonin 12 mg PO HS 01/29/22 01/29/22 History Midodrine HCl [ProAmatine] 10 mg PO DAILY PRN 01/29/22 01/29/22 History [place]-3 Fatty Acids/Fish Oil 1 cap PO DAILY 01/29/22 01/29/22 History [[place]-3 Fish Oil 1,200 mg Sfgl] Sevelamer [Renvela] 2,400 mg PO TID-W/MEALS 01/29/22 01/29/22 History Sevelamer [Renvela] 800 mg PO DAILY PRN 01/29/22 01/29/22 History diazePAM [Valium] 5 mg PO DAILY PRN 01/29/22 01/29/22 History Allergies Allergy/AdvReac Type Severity Reaction Status Date / Time hydromorphone [From Dilaudid] Allergy Swelling Verified 01/29/22 20:21 Anesthetics - Amide Type - AdvReac cardiac Verified 01/29/22 20:21 Select A arrest Anesthetics - Andree Type- AdvReac cardiac Verified 01/29/22 20:21 Parabens arrest ciprofloxacin [From Cipro] AdvReac AFFECTED Verified 01/29/22 20:21 EYESIGHT ciprofloxacin HCl AdvReac AFFECTED Verified 01/29/22 20:21 [From Cipro] EYESIGHT Iodinated Contrast Media AdvReac RENAL Verified 01/29/22 20:21 FAILURE Physical Exam Vitals: Vital Signs Temp Pulse Resp BP Pulse Ox 01/30/22 06:00 76 20 158/74 98 01/30/22 05:51 66 18 155/84 96 01/30/22 05:00 60 20 150/74 97 01/30/22 02:59 57 L 18 140/73 97 01/30/22 00:43 58 L 18 155/74 98 01/29/22 22:19 60 14 138/67 95 01/29/22 20:18 56 L 16 148/84 99 01/29/22 18:30 52 L 11 L 130/70 98 01/29/22 18:00 59 L 16 95 01/29/22 17:30 53 L 16 97 01/29/22 17:09 53 L 25 H 95 01/29/22 16:53 97.5 F L 56 L 16 149/72 99 Intake and Output 01/29/22 01/30/22 01/30/22 22:59 06:59 14:59 Other: Weight 78.925 kg Results 01/29/22 17:38 01/29/22 17:38 Cardiac Enzymes 01/29/22 01/29/22 01/29/22 Range/Units 17:38 17:38 20:48 AST 20 (14-36) U/L Troponin I 0.018 0.015 (0.000-0.034) ng/mL 01/30/22 Range/Units 00:14 AST (14-36) U/L Troponin I 0.016 (0.000-0.034) ng/mL Coagulation 01/29/22 Range/Units 17:38 PT 11.0 (9.0-12.0) sec APTT 25.3 (22.0-30.0) sec CBC 01/29/22 Range/Units 17:38 WBC 3.1 L (3.8-10.6) k/uL RBC 3.36 L (3.80-5.40) m/uL Hgb 10.2 L (11.4-16.0) gm/dL Hct 32.8 L (34.0-46.0) % Plt Count 79 L (150-450) k/uL Comprehensive Metabolic Panel 01/29/22 Range/Units 17:38 Sodium 138 (137-145) mmol/L Potassium 4.4 (3.5-5.1) mmol/L Chloride 92 L (98-107) mmol/L Carbon Dioxide 25 (22-30) mmol/L BUN 45 H (7-17) mg/dL Creatinine 6.49 H (0.52-1.04) mg/dL Glucose 143 H (74-99) mg/dL Calcium 9.2 (8.4-10.2) mg/dL AST 20 (14-36) U/L ALT 10 (4-34) U/L Alkaline Phosphatase 112 (38-126) U/L Total Protein 7.1 (6.3-8.2) g/dL Albumin 4.5 (3.5-5.0) g/dL Current Medications Generic Name Dose Route Start Last Admin Trade Name Tobiq PRN Reason Stop Dose Admin Aspirin 325 mg 01/30/22 09:00 Aspirin 325 Mg Tab PO DAILY ANNI Nitroglycerin 0.4 mg 01/29/22 19:54 Nitroglycerin Sl Tabs 0.4 Mg Tab SUBLINGUAL Q5M PRN Chest Pain Intake and Output 01/29/22 01/30/22 01/30/22 22:59 06:59 14:59 Other: Weight 78.925 kg 01/29/22 17:38 01/29/22 17:38
[2022-01-30 09:28] LABS: Chol/HDL Ratio 5.18 Ratio; LDL Cholesterol,Calculated 92.9 mg/dL (0.0-131.0)
[2022-01-30] MEDS ORDERED: LIDOCAINE-PRILOCAINE 2.5-2.5% CREAM 5 GM TUBE TOPICAL PRN (10:27)
[2022-01-30] MEDS ORDERED: diazePAM 5 MG TAB PO PRN (10:27)
[2022-01-30] MEDS ORDERED: CALCIUM CARBONATE 500 MG CHEWABLE PO PRN (10:27)
[2022-01-30] MEDS ORDERED: SEVELAMER 800 MG TAB PO PRN (10:28)
--- NOTE | 2022-01-30 10:54 | US ---
EXAMINATION TYPE: US abdomen limited DATE OF EXAM: 01/30/2022 COMPARISON: NONE CLINICAL HISTORY: Ascites. Ascites check Technique bilateral abdomen grayscale imaging for ascites. FINDINGS: Terminal free fluid is seen throughout the visualized abdomen. IMPRESSION: Moderate ascites
[2022-01-30 11:37] LABS: Glucose,Whole Blood 197 mg/dL (70-110)
[2022-01-30] MEDS: INSULIN ASPART (NovoLOG) 100 UNIT/ML VIAL SQ SCH ×5 (11:55→21:58)
[2022-01-30] MEDS: FUROSEMIDE 80 MG TAB PO SCH (11:56)
[2022-01-30] MEDS: SEVELAMER 800 MG TAB PO SCH ×2 (11:56→17:48)
[2022-01-30] MEDS ORDERED: NON FORMULARY DRUG (Insulin Lispro (Humalog) 100 UNIT/ML Ml) SQ SCH (12:30)
--- NOTE | 2022-01-30 12:56 | P.NPCON ---
History of Present Illness - Reason for Consult end stage renal disease - History of Present Illness Patient is a 56-year-old female with end-stage renal disease on hemodialysis on a Thursday schedule at [place]. Patient is admitted to the hospital with complaints of increased shortness of breath and swelling in her lower extremities and abdomen. Patient states that her legs have been hurting as well. No history of missing dialysis treatments recently No complaints of chest pains. Patient had Covid pneumonia last month. Review of Systems As per HPI Past Medical History Past Medical History: Blood Disorder, Coronary Artery Disease (CAD), Chest Pain / Angina, Heart Failure, COPD, Diabetes Mellitus, Dialysis, Eye Disorder, Hyperlipidemia, Hypertension, Liver Disease, Pneumonia, Renal Disease Additional Past Medical History / Comment(s): IDDM type II, past DKA, L retinal hemorrhages, chronic kidney disease/ESRD with hemodialysis, mineral bone disease, portal htn with hepatosplenomegaly, ascities/paracentesises, fatty liver/cirrhosis, hypertriglyceridemia-induced acute pancreatitis, then necrotizing pancreatitis with surgery, infectious myocarditis/endocarditis/mitral valve replaced, pulmonary HTN, UTI, chronic anemia, frequent body cramping, occasional low back pain, carter's palsy X2, past L leg fx, RLS, insomnia, current L lower leg wound/being seen at [facility]/chronic venous hypertension, 12/2021 covid. History of Any Multi-Drug Resistant Organisms: MRSA Date of last positivie culture/infection: 08-02-20 MDRO Source:: Blood Past Surgical History: Cardiac Valve Replacement, Orthopedic Surgery, Uterine Ablation Additional Past Surgical History / Comment(s): Colonoscopy with polypectomy/biopsy, pancreatic resection at [facility] 2009, bone marrow bi opsies X2, dialysis chest port X3 with removals, left arm shunt placement for dialysis and a revision done with shunt, left forearm vein revision, liver biopsy, mitral valve repacement 2019 at [facility],. paracentesis procedures, bilateral cataract removals/lens implants, then laser eye surgery to remove film on lenses, dental surgery. Past Anesthesia/Blood Transfusion Reactions: No Reported Reaction Additional Past Anesthesia/Blood Transfusion Reaction / Comment(s): Pt allergic to Amide type anesthesia/andree type parabins. Pt has received blood transfusions without reaction. Smoking Status: Never smoker - Past Family History Brother(s) Family Medical History: No Reported History Mother Family Medical History: Cancer, Congestive Heart Failure (CHF), Diabetes Mellitus Additional Family Medical History / Comment(s): Throat cancer. Father Family Medical History: Hypertension Additional Family Medical History / Comment(s): Alcoholism. Medications and Allergies Home Medications Medication Instructions Recorded Confirmed Type cloNIDine HCL [Catapres] 0.3 mg PO TID 12/16/16 01/29/22 History hydrALAZINE HCL [Apresoline] 100 mg PO QID 12/14/18 01/29/22 History HYDROcodone/APAP 7.5-325MG [[place] 1 tab PO TID 11/08/19 01/29/22 History 7.5-325] traMADol HCL [Ultram] 50 mg PO BID PRN 05/13/20 01/29/22 History Omeprazole 20 mg PO HS 08/02/20 01/29/22 History Lidocaine-Prilocaine Cream [Emla 1 applic TOPICAL TUTHSA PRN 06/18/21 01/29/22 History Cream 2.5%/2.5%] Ondansetron [Zofran] 4 mg PO TID PRN 06/18/21 01/29/22 History rOPINIRole HCL [Requip] 1 mg PO BID 06/18/21 01/29/22 History Gabapentin [Neurontin] 100 mg PO TID 07/08/21 01/29/22 History diazePAM [Valium] 5 mg PO HS 08/08/21 01/29/22 History Furosemide [Lasix] 80 mg PO BID@0300,1300 09/26/21 01/29/22 History INSULIN LISPRO (HumaLOG) [humaLOG] See Protocol SQ AC-TID 11/30/21 01/29/22 History Aspirin 325 mg PO DAILY 90 Days #90 tab 12/01/21 01/29/22 Rx amLODIPine [Norvasc] 5 mg PO DAILY 30 Days #30 tab 12/01/21 01/29/22 Rx Metoprolol Tartrate [Lopressor] 50 mg PO TID 12/13/21 01/29/22 History Sildenafil [Revatio] 20 mg PO TID 30 Days #90 tab 12/17/21 01/29/22 Rx Zinc Sulfate [Orazinc] 220 mg PO DAILY 10 Days #10 cap 12/17/21 01/29/22 Rx Calcium Carbonate [Tums] 500 mg PO TID PRN 01/29/22 01/29/22 History INSULIN LISPRO (HumaLOG) [humaLOG] 10 units SQ AC-TID 01/29/22 01/29/22 History Insulin Glargine,Hum.rec.anlog 45 units SQ HS 01/29/22 01/29/22 History [Lantus Solostar Pen] Melatonin 12 mg PO HS 01/29/22 01/29/22 History Midodrine HCl [ProAmatine] 10 mg PO DAILY PRN 01/29/22 01/29/22 History [place]-3 Fatty Acids/Fish Oil 1 cap PO DAILY 01/29/22 01/29/22 History [[place]-3 Fish Oil 1,200 mg Sfgl] Sevelamer [Renvela] 2,400 mg PO TID-W/MEALS 01/29/22 01/29/22 History Sevelamer [Renvela] 800 mg PO DAILY PRN 01/29/22 01/29/22 History diazePAM [Valium] 5 mg PO DAILY PRN 01/29/22 01/29/22 History Allergies Allergy/AdvReac Type Severity Reaction Status Date / Time hydromorphone [From Dilaudid] Allergy Swelling Verified 01/29/22 20:21 Anesthetics - Amide Type - AdvReac cardiac Verified 01/29/22 20:21 Select A arrest Anesthetics - Andree Type- AdvReac cardiac Verified 01/29/22 20:21 Parabens arrest ciprofloxacin [From Cipro] AdvReac AFFECTED Verified 01/29/22 20:21 EYESIGHT ciprofloxacin HCl AdvReac AFFECTED Verified 01/29/22 20:21 [From Cipro] EYESIGHT Iodinated Contrast Media AdvReac RENAL Verified 01/29/22 20:21 FAILURE Physical Exam Vitals: Vital Signs Temp Pulse Resp BP Pulse Ox 01/30/22 08:49 71 18 173/79 97 01/30/22 06:00 76 20 158/74 98 01/30/22 05:51 66 18 155/84 96 01/30/22 05:00 60 20 150/74 97 01/30/22 02:59 57 L 18 140/73 97 01/30/22 00:43 58 L 18 155/74 98 01/29/22 22:19 60 14 138/67 95 01/29/22 20:18 56 L 16 148/84 99 01/29/22 18:30 52 L 11 L 130/70 98 01/29/22 18:00 59 L 16 95 01/29/22 17:30 53 L 16 97 01/29/22 17:09 53 L 25 H 95 01/29/22 16:53 97.5 F L 56 L 16 149/72 99 Intake and Output 01/29/22 01/30/22 01/30/22 22:59 06:59 14:59 Other: Weight 78.925 kg 78.925 kg Awake, comfortable, not in any acute distress Examination of the heart S1 and S2 Examination of the lungs bilateral breath sounds are heard Abdomen is soft nontender distended with ascites Examination lower extremity shows edema 3+ bilaterally. Left leg is wrapped. Patient states she has an ulcer there which has been draining [employer] exam grossly intact Results - Lab Results Most recent lab results Calcium 9.2 mg/dL (8.4-10.2) 01/29/22 17:38 Magnesium 2.0 mg/dL (1.6-2.3) 01/29/22 17:38 01/29/22 17:38 01/29/22 17:38 Assessment and Plan Assessment: 1. End-stage renal disease on hemodialysis on a Thursday schedule 2. Volume overload 3. Hypertension partly volume sensitive 4. Recent Covid pneumonia in the first week of December 5. Left leg wound 6. CK D mineral bone disorder Plan: Hemodialysis today and then repeat in a.m. Continue with phosphate binders Consider paracentesis next Thank you for the consultation. We'll continue to follow the patient with you during her hospitalization.
[2022-01-30] MEDS: HYDROcodone/APAP 7.5-325MG 1 EACH TAB PO SCH ×2 (15:45→21:59)
[2022-01-30] MEDS: cloNIDine HCL 0.1 MG TAB PO SCH ×2 (15:45→21:59)
[2022-01-30] MEDS: GABAPENTIN 100 MG CAP PO SCH ×2 (15:46→21:59)
[2022-01-30] MEDS: SILDENAFIL 20 MG TAB PO SCH ×2 (15:52→22:04)
[2022-01-30 17:08] LABS: Glucose,Whole Blood 91 mg/dL (70-110)
--- NOTE | 2022-01-30 17:25 | CA ---
Transthoracic Echo Report Name: Sara Desouza Age: 56 Gender: F : 1965 Exam Date: 01/30/2022 10:05 Exam Location: [place] Echo Ht (in): 62 Wt (lb): 174 Ordering Physician: Devora Alonzo DO Attending/Referring Phys: [employer] Katie Stern RDCS Procedure CPT: Indications: LV function, hx MVR Cardiac Hx: Technical Quality: Good Contrast 1: Total Dose (mL): Contrast 2: Total Dose (mL): MEASUREMENTS (Male / Female) Normal Values DOPPLER MV Peak Velocity 209.5 cm/s MV Peak Gradient 17.6 mmHg MV Mean Velocity 111.3 cm/s MV Mean Gradient 6.2 mmHg MV Velocity Time Integral 56.3 cm TR Peak Velocity 345.9 cm/s TR Peak Gradient 56.5 mmHg Right Ventricular Systolic Press 50.5 mmHg FINDINGS Left Ventricle Left ventricular ejection fraction is estimated at 50-55%. Mildly increased left ventricular wall thickness. Right Ventricle Moderate to severe pulmonary hypertension 56mmHg moderate right ventricular dilatation. Right Atrium Normal right atrial size. Left Atrium Moderate left atrial dilatation. Mitral Valve Physiologic regurgitation of the prosthetic mitral valve. MV Peak Gradient 17.6mmHg, MV Mean Gradient 6.2mmHg Aortic Valve Trileaflet aortic valve. Aortic valve sclerosis. Tricuspid Valve Tricuspid valve not well visualized. [id number] tricuspid regurgitation. Pulmonic Valve Structurally normal pulmonic valve. Pericardium Normal pericardium. Aorta Aortic root and proximal ascending aorta not well visualized. CONCLUSIONS Normal LV systolic function Moderate to severe pulmonary hypertension Moderate left atrial enlargement Normal functioning prosthetic mitral valve with a peak gradient of 17 mm and a mean gradient of 6 mm across the valve Moderate to severe tricuspid regurgitation Consider transesophageal echo if clinically indicated for better evaluation of the prosthetic valve in mitral position Previewed by: Dr. Ricardo Guaman MD (Electronically Signed) Final Date: 30 January 2022 17:25
[2022-01-30 20:26] LABS: Glucose,Whole Blood 172 mg/dL (70-110)
[2022-01-30] MEDS ORDERED: INSULIN DETEMIR (LEVEMIR) 100 UNIT/ML SYR SQ SCH (21:00)
[2022-01-30] MEDS: diazePAM 5 MG TAB PO SCH (21:58)
[2022-01-30] MEDS: PANTOPRAZOLE 40 MG TABLET PO SCH (21:59)
[2022-01-30] MEDS: MELATONIN 3 MG TABLET PO SCH (22:02)
[2022-01-31] MEDS: FUROSEMIDE 80 MG TAB PO SCH ×2 (04:09→14:16)
[2022-01-31 07:13] LABS: Glucose,Whole Blood 65 mg/dL (70-110)
[2022-01-31 07:36] LABS: Glucose,Whole Blood 105 mg/dL (70-110)
[2022-01-31] MEDS: INSULIN ASPART (NovoLOG) 100 UNIT/ML VIAL SQ SCH ×7 (07:45→22:07)
[2022-01-31] MEDS ORDERED: NON FORMULARY DRUG (Omega-3 Fatty Acids/Fish Oil [Omega-3 Fish Oil 1,200 Mg Sfgl] 1 EACH C PO SCH (09:00)
[2022-01-31] MEDS ORDERED: ASPIRIN 325 MG TAB PO SCH (09:00)
--- NOTE | 2022-01-31 09:36 | P.PN ---
Subjective This is a pleasant 56-year-old female past medical history significant for end-stage renal disease on hemodialysis, infective endocarditis status post mitral valve repair in march 2020, hypertension, dyslipidemia, diabetes mellitus, history of liver disease, ascities, pulmonary hypertension, chronic pancreatitis s/p partial pancratectomy and chronic heart failure. She follows in the office with Dr. Tesfaye. We have been asked to see in consultation for chest pain. Patient presents emergency department with concerns for increased bila teral lower extremity edema, pain, concern for a left foot infection. She also endorses symptoms of shortness of breath, orthopnea, PND that began on Thursday morning. She states on Thursday she went to dialysis she states she was seen by her loss prevention supervisor and her medications were adjusted and she underwent dialysis with no complaints/issues. She denies any chest pain on exam, per ER note she was complaining of chest pain with deep breathing. She denies any lightheadedness, dizziness, palpitations, syncope or near syncope. 01/31 Patient seen and examined at bedside, no acute distress. Sitting up at the edge of the bed. She denies any chest pain or shortness of breath. LE edema has not worsened. Vital signs are stable. She underwent dialysis yesterday with 3 L removed. She is currently on her home cardiac medications. Echocardiogram revealed EF 5055 %, moderate severe pulmonary hypertension, 56 mmHg, normal functioning prosthetic mitral valve with a peak gradient of 70 mmHg and mean gradient of 6 no murmurs mercury, moderate severe tricuspid regurgitation PHYSICAL EXAMINATION Blood pressure 125/68, heart 69, afebrile, saturation 96% on room air CONSTITUTIONAL: No apparent distress. HEENT: Head is normocephalic. Neck supple No JVD CHEST EXAMINATION: Lungs are clear to auscultation. No chest wall tenderness is noted on palpation or with deep breathing. HEART EXAMINATION: Regular rate and rhythm. S1, S2 heard. Systolic ejection murmur apex. no gallops or rub. ABDOMEN: Soft, nontender. Positive bowel sounds. Distended, tympanic with ascites. EXTREMITIES: 2+ peripheral pulses, 1+ bilateral lower extremity pitting edema and no calf tenderness. NEUROLOGIC EXAMINATION: Patient is awake, alert and oriented x3. ASSESSMENT Chest discomfort, patient denies on exam, does endorse some intermittent shortness of breath, acute coronary syndrome has ruled out. Troponin negative x 3. no evidence of ischemia on EKG. Chronic heart failure with preserved ejection fraction Chronic lower extremity edema and pain Chronic lower extremity ulcers Severe pulmonary hypertension Valvular heart disease s/p tissue mitral valve repair in the setting of endocarditis Chronic liver disease Hypertension End stage renal disease on HD Anemia Diabetes mellitus type 2 Dyslipidemia Thrombocytopenia PLAN Patient symptoms appear to be chronic, she does not appear to be in acute heart failure, acute coronary syndrome has been ruled out. Echocardiogram reviewed as noted above. Continue home cardiac medications Nephrology following From cardiology perspective, patient is stable to be discharged home when cleared by primary and other consultants. Follow up outpatient with Dr. Tesfaye. Nurse practitioner note has been reviewed by physician. Signing provider agrees with the documented findings, assessment, and plan of care. Objective - Vital Signs Vital signs: Vital Signs Temp 97.6 F 01/31/22 02:00 Pulse 69 01/31/22 02:00 Resp 18 01/31/22 02:00 BP 125/68 01/31/22 02:00 Pulse Ox 98 01/31/22 08:27 FiO2 Intake & Output 01/30/22 01/31/22 01/31/22 18:59 06:59 18:59 Output Total 3000 Balance -3000 Weight 78.925 kg Output: Hemodialysis 3000 Other: # Voids 0 # Bowel Movements 0 - Labs CBC & Chem 7: 01/29/22 17:38 01/29/22 17:38 Labs: Abnormal Lab Results - Last 24 Hours (Table) 01/30/22 01/30/22 01/31/22 Range/Units 11:36 20:25 07:02 POC Glucose (mg/dL) 197 H 172 H 65 L (70-110) mg/dL
--- NOTE | 2022-01-31 11:35 | HP ---
HISTORY AND PHYSICAL HISTORY OF PRESENT ILLNESS: A 56-year-old white female with end-stage renal disease, came in with fluid overload . Ultrasound was ordered, which showed , for which the patient will have paracentesis done by interventional radiologist tomorrow. Has PND and orthopnea. Dialyses today. She still remains weak and fatigued. EKG; sinus bradycardia, right bundle-branch block. Chest x-ray; pulmonary congestion, cardiomyopathy, cardiomegaly. Ejection fraction 55% to 60%, severe tricuspid regurgitation, severe pulmonary hypertension. TK shows ejection fraction of 40% to 45%. in the past. REVIEW OF SYSTEMS: Fourteen-point review of systems otherwise is negative. PHYSICAL EXAMINATION: VITAL SIGNS: Reviewed. CARDIOVASCULAR: S1 and S2. LUNGS: Rales at the bases. HEMATOLOGY: 2+ to 3+ edema. ABDOMEN: Positive fluid wave. . Gravid uterus. INTEGUMENT: No rash, excoriation, or bruises. ASSESSMENT: Atypical chest pain secondary to end-stage renal disease and fluid overload even though she has not missed dialysis. Ascites. . Prognosis is guarded. MMODL / IJN: [id number] /
[2022-01-31 12:12] LABS: Glucose,Whole Blood 119 mg/dL (70-110)
--- NOTE | 2022-01-31 12:24 | P.PN ---
Subjective Patient is seen for follow-up for end-stage renal disease. She was admitted to the hospital with complaints of increased shortness of breath and lower extremity edema. Patient was dialyzed yesterday with UF of about 3 L. She tolerated her treatment well. She is scheduled for hemodialysis again today and patient is actually seen on dialysis. She is tolerating her treatment well. Goal UF about 4 L today. Patient is scheduled for paracentesis as well today. Objective - Vital Signs Vital signs: Vital Signs Temp 97.6 F 01/31/22 07:00 Pulse 70 01/31/22 07:00 Resp 18 01/31/22 07:00 BP 171/73 01/31/22 07:00 Pulse Ox 98 01/31/22 08:27 FiO2 Intake & Output 01/30/22 01/31/22 01/31/22 18:59 06:59 18:59 Intake Total 120 Output Total 3000 Balance -3000 120 Weight 78.925 kg Intake: Oral 120 Output: Hemodialysis 3000 Other: # Voids 0 0 # Bowel Movements 0 - Exam Awake, comfortable, not in any acute distress Examination of the heart S1 and S2 Examination of the lungs bilateral breath sounds are heard Abdomen is soft nontender Examination of the lower extremities shows edema 2+ bilaterally [employer] exam grossly intact - Labs CBC & Chem 7: 01/29/22 17:38 01/29/22 17:38 Labs: Abnormal Lab Results - Last 24 Hours (Table) 01/30/22 01/31/22 01/31/22 Range/Units 20:25 07:02 12:09 POC Glucose (mg/dL) 172 H 65 L 119 H (70-110) mg/dL Assessment and Plan Assessment: 1. End-stage renal disease on hemodialysis on a Thursday schedule 2. Volume overload 3. Hypertension partly volume sensitive 4. Recent Covid pneumonia in the first week of December 5. Left leg wound 6. CK D mineral bone disorder Plan: Hemodialysis today and then again in a.m. If patient is discharged she can f ollow-up for hemodialysis as outpatient tomorrow.
[2022-01-31] MEDS: GABAPENTIN 100 MG CAP PO SCH ×3 (14:02→22:03)
[2022-01-31] MEDS: HYDROcodone/APAP 7.5-325MG 1 EACH TAB PO SCH ×3 (14:03→22:01)
[2022-01-31] MEDS: ZINC SULFATE 220 MG CAP PO SCH (14:05)
[2022-01-31] MEDS: SEVELAMER 800 MG TAB PO SCH ×3 (14:06→18:14)
[2022-01-31] MEDS: SILDENAFIL 20 MG TAB PO SCH ×3 (14:06→22:04)
[2022-01-31] MEDS: ASPIRIN 325 MG TAB PO SCH (14:07)
[2022-01-31] MEDS: amLODIPine 5 MG TAB PO SCH (14:08)
[2022-01-31] MEDS: cloNIDine HCL 0.1 MG TAB PO SCH ×3 (14:08→22:01)
[2022-01-31] MEDS: hydrALAZINE HCL 50 MG TAB PO SCH ×4 (14:09→22:03)
[2022-01-31] MEDS: METOPROLOL TARTRATE 50 MG TAB PO SCH ×3 (14:09→22:13)
--- NOTE | 2022-01-31 15:04 | US ---
EXAMINATION TYPE: US paracentesis abd w/image DATE OF EXAM: 01/31/2022 COMPARISON: NONE HISTORY: Ascites. PROCEDURE: Maximal barrier technique was utilized. The skin overlying a suitable pocket of fluid was localized with ultrasound and the overlying skin was prepped and draped. Ultrasound was utilized with sterile technique. Lidocaine was used for local anesthesia and a skin sheryl made with a scalpel. Catheter was advanced under direct ultrasound guidance into a suitable pocket of fluid and approximately 3.3 liter s of ascites fluid were removed. Catheter was withdrawn and hemostasis achieved. There is no immedi ate complication; the patient is discharged in stable condition. IMPRESSION: STATUS POST ULTRASOUND GUIDED PARACENTESIS FOR PALLIATION OF ASCITES. THIS PROCEDURE WA S PERFORMED BY THE UNDERSIGNED.
--- NOTE | 2022-01-31 15:49 | P.CONS ---
History of Present Illness - Reason for Consult Consult date: 01/31/22 Pancytopenia - History of Present Illness Ms Desouza is a pleasant WF, with multiple medical problems, who was seen by Dr De in 2009-, and the last by our office with oncologist Dr. Cirilo Garay in 2017. She was originally referred to [facility] for for low blood counts. Per the pt , this related to her WBC. She had a bone marrow done, and states that she was told she had " less than 5% risk of cancer". She did not f/u with Hem-Onc since, till 07/23. She was admitted to [facility] with sepsis due to toe infection. She developed pancytopenia, which was felt to be due to sepsis, with counts showing some improvement as she recovered. She has a h/o severe pancreatitis resulting in renal failure in 2009, requiring HD for a few mths. She developed AUDREY in 07/23 again, but recovered. She was placed back on HD in 11/23. She was noted to have a Hgb of 6.9 on 01/10/16 and received PRBC transfusion. Hgb fell to 6.2 again on 03/12/16 requiring repeat transfusion. She denied obvious bleeding. She was thus referred here for further evaluation and recommendations. Records and labs from 07/23 and other admissions to [facility] since were reviewed. Her bone marrow from 2010 had shown dyspoeitic changes. Additional labs were ordered which were negative other than a mild kappa elevation vs lambda with a ratio of 2.49 She is being evaluated for a renal transplant at [facility]. Thus a repeat bone marrow was done on 05/19/16, again showing mild dyspoeitic changes, with no evidence of progression at the time of last visit in 2017. She now is admitted to hospital and we have been asked to evaluate regarding pancytopenia. She has had chronic pancytopenia due to anti-rejection medications, when trending it does not appear to have worsened Review of Systems All systems: negative Constitutional: Reports as per HPI Past Medical History Past Medical History: Blood Disorder, Coronary Artery Disease (CAD), Chest Pain / Angina, Heart Failure, COPD, Diabetes Mellitus, Dialysis, Eye Disorder, Hyperlipidemia, Hypertension, Liver Disease, Pneumonia, Renal Disease Additional Past Medical History / Comment(s): IDDM type II, past DKA, L retinal hemorrhages, chronic kidney disease/ESRD with hemodialysis, mineral bone disease, portal htn with hepatosplenomegaly, ascities/paracentesises, fatty liver/cirrhosis, hypertriglyceridemia-induced acute pancreatitis, then necrotizing pancreatitis with surgery, infectious myocarditis/endocarditis/mitral valve replaced, pulmonary HTN, UTI, chronic anemia, frequent body cramping, occasional low back pain, carter's palsy X2, past L leg fx, RLS, insomnia, current L lower leg wound/being seen at [facility]/chronic venous hypertension, 12/2021 covid. History of Any Multi-Drug Resistant Organisms: MRSA Year Discovered:: 08-02-20 MDRO Source:: Blood Past Surgical History: Cardiac Valve Replacement, Orthopedic Surgery, Uterine Ablation Additional Past Surgical History / Comment(s): Colonoscopy with polypectomy/biopsy, pancreatic resection at [facility] 2009, bone marrow biopsies X2, dialysis chest port X3 with removals, left arm shunt placement for dialysis and a revision done with shunt, left forearm vein revision, liver biopsy, mitral valve repacement 2019 at [facility],. paracentesis procedures, bilateral cataract removals/lens implants, then laser eye surgery to remove film on lenses, dental surgery. Past Anesthesia/Blood Transfusion Reactions: No Reported Reaction Additional Past Anesthesia/Blood Transfusion Reaction / Comm: Pt allergic to Amide type anesthesia/julita type parabins. Pt has received blood transfusions without reaction. Smoking Status: Never smoker - Past Family History Brother(s) Family Medical History: No Reported History Mother Family Medical History: Cancer, Congestive Heart Failure (CHF), Diabetes Mellitus Additional Family Medical History / Comment(s): Throat cancer. Father Family Medical History: Hypertension Additional Family Medical History / Comment(s): Alcoholism. Medications and Allergies Home Medications Medication Instructions Recorded Confirmed Type cloNIDine HCL [Catapres] 0.3 mg PO TID 12/16/16 01/29/22 History hydrALAZINE HCL [Apresoline] 100 mg PO QID 12/14/18 01/29/22 History HYDROcodone/APAP 7.5-325MG [[place] 1 tab PO TID 11/08/19 01/29/22 History 7.5-325] traMADol HCL [Ultram] 50 mg PO BID PRN 05/13/20 01/29/22 History Omeprazole 20 mg PO HS 08/02/20 01/29/22 History Lidocaine-Prilocaine Cream [[place]ml[place] 1 applic TOPICAL TUTHSA PRN 06/18/21 01/29/22 History Cream 2.5%/2.5%] Ondansetron [Zofran] 4 mg PO TID PRN 06/18/21 01/29/22 History rOPINIRole HCL [Requip] 1 mg PO BID 06/18/21 01/29/22 History Gabapentin [Neurontin] 100 mg PO TID 07/08/21 01/29/22 History diazePAM [Valium] 5 mg PO HS 08/08/21 01/29/22 History Furosemide [Lasix] 80 mg PO BID@0300,1300 09/26/21 01/29/22 History INSULIN LISPRO (HumaLOG) [humaLOG] See Protocol SQ AC-TID 11/30/21 01/29/22 History Aspirin 325 mg PO DAILY 90 Days #90 tab 12/01/21 01/29/22 Rx amLODIPine [Norvasc] 5 mg PO DAILY 30 Days #30 tab 12/01/21 01/29/22 Rx Metoprolol Tartrate [Lopressor] 50 mg PO TID 12/13/21 01/29/22 History Sildenafil [Revatio] 20 mg PO TID 30 Days #90 tab 12/17/21 01/29/22 Rx Zinc Sulfate [Orazinc] 220 mg PO DAILY 10 Days #10 cap 12/17/21 01/29/22 Rx Calcium Carbonate [Tums] 500 mg PO TID PRN 01/29/22 01/29/22 History INSULIN LISPRO (HumaLOG) [humaLOG] 10 units SQ AC-TID 01/29/22 01/29/22 History Insulin Glargine,Hum.rec.anlog 45 units SQ HS 01/29/22 01/29/22 History [Lantus Solostar Pen] Melatonin 12 mg PO HS 01/29/22 01/29/22 History Midodrine HCl [ProAmatine] 10 mg PO DAILY PRN 01/29/22 01/29/22 History [place]-3 Fatty Acids/Fish Oil 1 cap PO DAILY 01/29/22 01/29/22 History [[place]-3 Fish Oil 1,200 mg Sfgl] Sevelamer [Renvela] 2,400 mg PO TID-W/MEALS 01/29/22 01/29/22 History Sevelamer [Renvela] 800 mg PO DAILY PRN 01/29/22 01/29/22 History diazePAM [Valium] 5 mg PO DAILY PRN 01/29/22 01/29/22 History Allergies Allergy/AdvReac Type Severity Reaction Status Date / Time hydromorphone [From Dilaudid] Allergy Swelling Verified 01/29/22 20:21 Anesthetics - Amide Type - AdvReac cardiac Verified 01/29/22 20:21 Select A arrest Anesthetics - Julita Type- AdvReac cardiac Verified 01/29/22 20:21 Parabens arrest ciprofloxacin [From Cipro] AdvReac AFFECTED Verified 01/29/22 20:21 EYESIGHT ciprofloxacin HCl AdvReac AFFECTED Verified 01/29/22 20:21 [From Cipro] EYESIGHT Iodinated Contrast Media AdvReac RENAL Verified 01/29/22 20:21 FAILURE Physical Exam Vitals: Vital Signs Temp Pulse Pulse Resp BP BP Pulse Ox 01/31/22 08:27 98 01/31/22 07:00 97.6 F 70 18 171/73 93 L 01/31/22 02:00 97.6 F 69 18 125/68 96 01/30/22 19:46 18 01/30/22 17:19 98.1 F 18 166/76 01/30/22 15:47 65 18 168/76 97 01/30/22 13:00 88 18 146/82 96 Intake and Output 01/30/22 01/31/22 01/31/22 22:59 06:59 14:59 Intake Total 120 Output Total 3000 Balance -3000 120 Intake: Oral 120 Output: Hemodialysis 3000 Other: # Voids 0 0 # Bowel Movements 0 - Constitutional General appearance: cooperative - EENT Eyes: EOMI ENT: NA/AT - Neck Neck: normal ROM - Respiratory Respiratory: bilateral: diminished - Cardiovascular Rhythm: regularly irregular - Gastrointestinal General gastrointestinal: soft - Integumentary Integumentary: pale - Neurologic Neurologic: CNII-XII intact - Musculoskeletal Musculoskeletal: generalized weakness - Psychiatric Psychiatric: A&O x's 3, appropriate affect, intact judgment & insight Results CBC & Chem 7: 01/29/22 17:38 01/29/22 17:38 Labs: Abnormal Lab Results - Last 24 Hours (Table) 01/30/22 01/31/22 Range/Units 20:25 07:02 POC Glucose (mg/dL) 172 H 65 L (70-110) mg/dL Assessment and Plan (1) Pancytopenia Narrative/Plan: Chronic without much change from baseline. This is likely due to chronic anti-r ejection medications, but will recheck full pancytopenia work-up due to >5 years Transfuse <7 PRBC Platlets <10K Hold AC if platelets less than 50K Recheck labs today and CBC frequent Current Visit: No Status: Chronic Priority: Medium Code(s): D61.818 - OTHER PANCYTOPENIA SNOMED Code(s): 124247166 Plan: Dr. Amaral: I have completed the full history and physical and developed the above impression and plan, agree with dictation, dictated as a ascribe
[2022-01-31] MEDS: traMADol 50 MG TAB PO PRN (16:21)
[2022-01-31 16:27] LABS: Reticulocyte % 2.5 % (0.5-2.0)
[2022-01-31 16:31] LABS: Anisocytosis Slight; Basophils # (A) 0.1 k/uL (0-0.2); Basophils % (A) 1 %; Eosinophils % (A) 1 %; HCT 33.1 % (34.0-46.0); HGB 10.4 gm/dL (11.4-16.0); Hypochromasia Moderate; Lymphocytes # (A) 0.3 k/uL (1.0-4.8); Lymphocytes % (A) 8 %; MCHC 31.5 g/dL (31.0-37.0); MCV 98.3 fL (80.0-100.0); Macrocytosis Slight; Mean Platelet Volume 8.7; Monocytes # (A) 0.2 k/uL (0-1.0); Monocytes % (A) 7 %; Neutrophils # (A) 2.7 k/uL (1.3-7.7); Neutrophils % (A) 81 %; Platelet Count 102 k/uL (150-450); RBC 3.37 m/uL (3.80-5.40); RDW 17.3 % (11.5-15.5); WBC 3.3 k/uL (3.8-10.6)
[2022-01-31 16:46] LABS: ALT 10 U/L (4-34); AST 20 U/L (14-36); African American GFR (CKD) 13 (>60 ml/min/1.73 sqM); Albumin 4.5 g/dL (3.5-5.0); Albumin/Globulin Ratio 1.7; Alkaline Phosphatase 126 U/L (38-126); Anion Gap 17 mmol/L; Blood Urea Nitrogen 25 mg/dL (7-17); Calcium 9.3 mg/dL (8.4-10.2); Carbon Dioxide 26 mmol/L (22-30); Chloride 94 mmol/L (98-107); Globulin 2.6 g/dL; Glucose 161 mg/dL (74-99); Magnesium 1.8 mg/dL (1.6-2.3); Non-African American GFR(CKD) 11 (>60 ml/min/1.73 sqM); Potassium 4.4 mmol/L (3.5-5.1); Sodium 137 mmol/L (137-145); Total Bilirubin 0.7 mg/dL (0.2-1.3); Total Protein 7.1 g/dL (6.3-8.2)
[2022-01-31 16:49] LABS: Partial Thromboplastin Time 26.2 sec (22.0-30.0)
[2022-01-31 17:22] LABS: Erythrocyte Sedimentation Rate 35 mm/hr (0-20)
[2022-01-31 17:49] LABS: Glucose,Whole Blood 254 mg/dL (70-110)
[2022-01-31 20:48] LABS: Glucose,Whole Blood 309 mg/dL (70-110)
[2022-01-31] MEDS: diazePAM 5 MG TAB PO SCH (22:04)
[2022-01-31] MEDS: PANTOPRAZOLE 40 MG TABLET PO SCH (22:05)
[2022-01-31] MEDS: INSULIN DETEMIR (LEVEMIR) 100 UNIT/ML SYR SQ SCH (22:09)
[2022-01-31] MEDS: MELATONIN 3 MG TABLET PO SCH (22:15)
[2022-01-31 23:59] LABS: % Iron Saturation 18.14 (12.00-45.00)
[2022-02-01] LABS: Protein, Total 6.8 g/dL (6.2-8.2)
[2022-02-01 01:33] LABS: Haptoglobin 58.1 mg/dL (31.2-198.0)
[2022-02-01] MEDS: FUROSEMIDE 80 MG TAB PO SCH ×2 (03:17→16:43)
[2022-02-01] MEDS: traMADol 50 MG TAB PO PRN (03:17)
[2022-02-01] MEDS: ONDANSETRON 4 MG TAB PO PRN ×2 (04:42→22:01)
[2022-02-01 07:22] LABS: Glucose,Whole Blood 79 mg/dL (70-110)
[2022-02-01] MEDS: INSULIN ASPART (NovoLOG) 100 UNIT/ML VIAL SQ SCH ×7 (07:28→21:03)
[2022-02-01] MEDS: cloNIDine HCL 0.1 MG TAB PO SCH (07:53)
[2022-02-01] MEDS: SEVELAMER 800 MG TAB PO SCH ×3 (07:53→18:13)
[2022-02-01] MEDS: ZINC SULFATE 220 MG CAP PO SCH (07:53)
[2022-02-01] MEDS: METOPROLOL TARTRATE 50 MG TAB PO SCH ×3 (07:53→21:57)
[2022-02-01] MEDS: SILDENAFIL 20 MG TAB PO SCH ×3 (07:54→21:58)
[2022-02-01] MEDS: amLODIPine 5 MG TAB PO SCH (07:54)
[2022-02-01] MEDS: ASPIRIN 325 MG TAB PO SCH (07:54)
[2022-02-01] MEDS: hydrALAZINE HCL 50 MG TAB PO SCH (07:54)
[2022-02-01] MEDS: HYDROcodone/APAP 7.5-325MG 1 EACH TAB PO SCH ×3 (07:54→21:58)
[2022-02-01] MEDS: GABAPENTIN 100 MG CAP PO SCH ×3 (07:55→21:58)
[2022-02-01] MEDS ORDERED: levOCARNitine (WITH SUGAR) 100 MG/ML BOTTLE PO PRN (09:40)
--- NOTE | 2022-02-01 09:43 | P.PN ---
Subjective Patient is seen in follow-up for end-stage renal disease. She is maintained on hemodialysis on Thursday schedule. Underwent paracentesis yesterday with 3.3 L drained. Denies chest pain or shortness of breath. On room air. Blood pressure controlled. Vital signs are stable. General: Awake. No acute distress. HEENT: Head exam is unremarkable. LUNGS: Breath sounds decreased. HEART: Rate and Rhythm are regular. ABDOMEN: Soft, mild distention. EXTREMITITES: 1+ edema. Chronic changes noted. No drainage. Objective - Vital Signs Vital signs: Vital Signs Temp 98.4 F 02/01/22 07:00 Pulse 68 02/01/22 07:00 Resp 18 02/01/22 07:00 BP 124/65 02/01/22 07:00 Pulse Ox 97 02/01/22 07:00 FiO2 Intake & Output 01/31/22 02/01/22 02/01/22 18:59 06:59 18:59 Intake Total 360 Balance 360 Intake: Oral 360 Other: # Voids 0 1 - Labs CBC & Chem 7: 01/31/22 15:58 01/31/22 15:58 Labs: Abnormal Lab Results - Last 24 Hours (Table) 01/31/22 01/31/22 01/31/22 Range/Units 12:09 15:58 15:58 WBC 3.3 L (3.8-10.6) k/uL RBC 3.37 L (3.80-5.40) m/uL Hgb 10.4 L (11.4-16.0) gm/dL Hct 33.1 L (34.0-46.0) % RDW 17.3 H (11.5-15.5) % Plt Count 102 L (150-450) k/uL Lymphocytes # 0.3 L (1.0-4.8) k/uL ESR 35 H (0-20) mm/hr Retic Count (0.5-2.0) % Chloride (98-107) mmol/L BUN (7-17) mg/dL Creatinine (0.52-1.04) mg/dL Glucose (74-99) mg/dL POC Glucose (mg/dL) 119 H (70-110) mg/dL Ferritin 1331.0 H (10.0-291.0) ng/mL 01/31/22 01/31/22 01/31/22 Range/Units 15:58 15:58 17:35 WBC (3.8-10.6) k/uL RBC (3.80-5.40) m/uL Hgb (11.4-16.0) gm/dL Hct (34.0-46.0) % RDW (11.5-15.5) % Plt Count (150-450) k/uL Lymphocytes # (1.0-4.8) k/uL ESR (0-20) mm/hr Retic Count 2.5 H (0.5-2.0) % Chloride 94 L (98-107) mmol/L BUN 25 H (7-17) mg/dL Creatinine 4.25 H (0.52-1.04) mg/dL Glucose 161 H (74-99) mg/dL POC Glucose (mg/dL) 254 H (70-110) mg/dL Ferritin (10.0-291.0) ng/mL 01/31/22 Range/Units 20:46 WBC (3.8-10.6) k/uL RBC (3.80-5.40) m/uL Hgb (11.4-16.0) gm/dL Hct (34.0-46.0) % RDW (11.5-15.5) % Plt Count (150-450) k/uL Lymphocytes # (1.0-4.8) k/uL ESR (0-20) mm/hr Retic Count (0.5-2.0) % Chloride (98-107) mmol/L BUN (7-17) mg/dL Creatinine (0.52-1.04) mg/dL Glucose (74-99) mg/dL POC Glucose (mg/dL) 309 H (70-110) mg/dL Ferritin (10.0-291.0) ng/mL Assessment and Plan Plan: Assessment: 1. End-stage renal disease maintained on hemodialysis on Thursday schedule. 2. Volume overload. Paracentesis done 01/31/2022 to 3.3 L drained. 3. Acute on chronic diastolic CHF with moderate to severe pulmonary hypertension and tricuspid regurgitation. 4. Hypertension with chronic kidney disease. 5. Chronic kidney disease mineral bone disease maintained on Renvela. 6. Diabetes mellitus. 7. Pancytopenia. Hematology following. High ferritin level noted. Plan: Hemodialysis today. Add Aranesp. Add levocarnitine as needed for cramping.
[2022-02-01] MEDS: MIDODRINE 5 MG TAB PO PRN ×2 (10:05→12:45)
--- NOTE | 2022-02-01 11:21 | P.PN ---
Progress Note - Text Progress Note Date: 01/31/22 Presenting complaint: Short of breath Hospital course: I'm rounding for Dr. David Bragg This is a pleasant 56-year-old patient who follows with Dr. David Bragg. Chronic stable medical conditions include COPD, diabetes, end-stage kidney disease on hemodialysis with left arm fistula, hyperlipidemia hypertension and hypertriglyceridemia-induced acute pancreatitis, pancreatic resection at [facility] 2009. January 31: Patient presents with increasing shortness of breath . Cardiac hemodialyzed yesterday 3 L removed. Getting hemodialysis today about 3-4 L of be removed. Appetite improved. Some decrease edema. Accu-Cheks were low. Insulin adjusted. Pending paracentesis. Current medications reviewed Past medical history to include: Diastolic heart failure, valvular heart disease status post mitral valve repair in the setting of endocarditis, end-stage kidney disease on hemodialysis, anemia, diabetes mellitus type, hyperlipidemia, hypertension, secondary pulmonary hypertension with renal bone disease, anemia of chronic kidney disease, fatty liver disease leading to cirrhosis with portal hypertension, ascites, acute kidney injury after pancreatic surgery requiring hemodialysis previously 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 No alcohol. . Family history: Cancer, CHF, diabetes Physical examination: VITAL SIGNS: 97.6, 65, 18, 159-71, 97% room air GENERAL: laying in bed, awake, EYES: Pupils equal. Conjunctiva normal. HEENT: External appearance of nose and ears normal, oral cavity grossly normal. NECK: JVD not raised; masses not palpable. HEART: First and second heart sounds are normal; edema present LUNGS: Respiratory rate normal; clear to auscultation. ABDOMEN: Soft, distended nontender, liver spleen not palpable, no masses palpable. PSYCH: Alert and oriented x3; mood and affect normal. MUSCULOSKELETAL:No Clubbing/cyanosis;muscles-grossly intact NEUROLOGICAL: Cranial nerves grossly intact; no facial asymmetry, power and sensation: Some decreased sensation peripherally. INVESTIGATIONS, reviewed in the clinical context: WBC 3.3 hemoglobin 10.4 platelets 102 potassium 4.4 BUN 25 creatinine 4.25 IgG 1030 IgA to 1 for IgM 187 rheumatoid factor XI Assessment and plan: -Fluid over load multifactorial: Slow to respond Daily ultrafiltration -Hypertensive heart disease Norvasc, Catapres, hydralazine, Lopressor -Secondary severe pulmonary hypertension -Severe tricuspid regurgitation Follow clinically - ascites secondary to cirrhosis: Lasix 80 mg twice a day. Pending paracentesis -Portal hypertension with hepatosplenomegaly secondary to cirrhosis Lasix -Cirrhosis secondary to fatty liver Patient does follow with Dr. Andrei Guaman Diabetes mellitus type 2, chronically on insulin. Uncontrolled with hypoglycemia. Levemir 35 units subcu daily at bedtime. Accu-Chek. -End-stage kidney disease on hemodialysis Hemodialysis, Thursday. Nephrology -Hyperlipidemia Cardiac diet -Restless leg syndrome On Requip 1 mg twice a day -Essential hypertension Norvasc, Catapres, hydralazine, Lopressor 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 renvela -Painful peripheral neuropathy: Better Neurontin 100 mg 3 times a day -Chronic insomnia from multiple medical problems Melatonin Getting ultrafiltration today. Possibly tomorrow 2. Dose of insulin adjusted. Discussed with the patient. Follow
[2022-02-01 11:34] LABS: Basophils # (A) 0.02 X 10*3/uL (0.00-0.10); Basophils % (A) 0.5 %; Eosinophils # (A) 0.05 X 10*3/uL (0.04-0.35); Eosinophils % (A) 1.2 %; HCT 33.4 % (37.2-46.3); HGB 10.3 g/dL (12.0-15.0); Immature Grans, Automated 0.5 %; Lymphocytes # (A) 0.62 X 10*3/uL (0.90-5.00); Lymphocytes % (A) 15.5 %; MCH 30.2 pg (27.0-32.0); MCHC 30.8 g/dL (32.0-37.0); MCV 97.9 fL (80.0-97.0); Mean Platelet Volume 9.9 fL (9.5-12.2); Monocytes # (A) 0.36 X 10*3/uL (0.20-1.00); NRBC Per 100 WBC 0 /100 WBCS (0.0-0.0); Neutrophils # (A) 2.94 X 10*3/uL (1.80-7.70); Neutrophils % (A) 73.3 %; Platelet Count 113 X 10*3/uL (140-440); RBC 3.41 X 10*6/uL (4.10-5.20); RDW 17.2 % (11.5-14.5); WBC 4.01 X 10*3/uL (4.50-10.00)
[2022-02-01] MEDS ORDERED: DARBEPOETIN ALFA 40 MCG/0.4 ML SYRINGE SQ SCH (12:00)
[2022-02-01 12:03] LABS: Glucose,Whole Blood 353 mg/dL (70-110)
[2022-02-01 12:11] LABS: African American GFR (CKD) 9.2 (60.0-200.0); Albumin 4.3 g/dL (3.8-4.9); Albumin/Globulin Ratio 1.72 (1.60-3.17); Anion Gap 17.6 mmol/L (10.00-18.00); BUN/Creat Ratio 7.14 Ratio (12.00-20.00); Calcium 9.4 mg/dL (8.7-10.3); Carbon Dioxide 25.4 mmol/L (20.0-27.5); Globulin 2.5 g/dL (1.6-3.3); Potassium 4.9 mmol/L (3.5-5.5); Total Bilirubin 0.5 mg/dL (0.30-1.20); Total Protein 6.8 g/dL (6.2-8.2)
[2022-02-01] MEDS: hydrALAZINE HCL 25 MG TAB PO SCH ×3 (13:02→20:03)
--- NOTE | 2022-02-01 13:35 | P.PN ---
Subjective Progress Note Date: 02/01/22 Principal diagnosis: Pancytopenia -Underwent dialysis on 01/31/2022 -No acute events overnight -Notes feeling improved this morning, but had blood pressure of 86/52 during my clinical encounter -She denies any lightheadedness, dizziness, fevers, chills, night sweats, lymphadenopathy Objective - Vital Signs Vital signs: Vital Signs Temp 98.4 F 02/01/22 07:00 Pulse 67 02/01/22 11:04 Resp 18 02/01/22 07:00 BP 92/38 02/01/22 11:04 Pulse Ox 97 02/01/22 07:00 FiO2 Intake & Output 01/31/22 02/01/22 02/01/22 18:59 06:59 18:59 Intake Total 360 240 Balance 360 240 Intake: Oral 360 240 Other: # Voids 0 1 - Constitutional General appearance: Present: cooperative, no acute distress - EENT Eyes: Present: EOMI - Respiratory Respiratory: bilateral: CTA - Cardiovascular Rhythm: regular - Peripheral edema leg Peripheral Edema: bilateral: 2+ (Wrapped in huyen bandages) - Integumentary Integumentary Comment(s): AV fistula site in the left upper extremity with minimal bruising, but is otherwise clean/dry/intact - Labs CBC & Chem 7: 02/01/22 06:43 02/01/22 06:43 Labs: Abnormal Lab Results - Last 24 Hours (Table) 01/31/22 01/31/22 01/31/22 Range/Units 15:58 15:58 15:58 WBC 3.3 L (3.8-10.6) k/uL RBC 3.37 L (3.80-5.40) m/uL Hgb 10.4 L (11.4-16.0) gm/dL Hct 33.1 L (34.0-46.0) % MCV (80.0-97.0) fL MCHC (32.0-37.0) g/dL RDW 17.3 H (11.5-15.5) % Plt Count 102 L (150-450) k/uL Lymphocytes # 0.3 L (1.0-4.8) k/uL ESR 35 H (0-20) mm/hr Retic Count (0.5-2.0) % Chloride 94 L (98-107) mmol/L BUN 25 H (7-17) mg/dL Creatinine 4.25 H (0.52-1.04) mg/dL Est GFR (CKD-EPI)AfAm (60.0-200.0) Est GFR (CKD-EPI)NonAf (60.0-200.0) BUN/Creatinine Ratio (12.00-20.00) Ratio Glucose 161 H (74-99) mg/dL POC Glucose (mg/dL) (70-110) mg/dL Ferritin 1331.0 H (10.0-291.0) ng/mL 01/31/22 01/31/22 01/31/22 Range/Units 15:58 17:35 20:46 WBC (3.8-10.6) k/uL RBC (3.80-5.40) m/uL Hgb (11.4-16.0) gm/dL Hct (34.0-46.0) % MCV (80.0-97.0) fL MCHC (32.0-37.0) g/dL RDW (11.5-15.5) % Plt Count (150-450) k/uL Lymphocytes # (1.0-4.8) k/uL ESR (0-20) mm/hr Retic Count 2.5 H (0.5-2.0) % Chloride (98-107) mmol/L BUN (7-17) mg/dL Creatinine (0.52-1.04) mg/dL Est GFR (CKD-EPI)AfAm (60.0-200.0) Est GFR (CKD-EPI)NonAf (60.0-200.0) BUN/Creatinine Ratio (12.00-20.00) Ratio Glucose (74-99) mg/dL POC Glucose (mg/dL) 254 H 309 H (70-110) mg/dL Ferritin (10.0-291.0) ng/mL 02/01/22 02/01/22 02/01/22 Range/Units 06:43 06:43 12:01 WBC 4.01 L (3.8-10.6) k/uL RBC 3.41 L (3.80-5.40) m/uL Hgb 10.3 L (11.4-16.0) gm/dL Hct 33.4 L (34.0-46.0) % MCV 97.9 H (80.0-97.0) fL MCHC 30.8 L (32.0-37.0) g/dL RDW 17.2 H (11.5-15.5) % Plt Count 113 L (150-450) k/uL Lymphocytes # 0.62 L (1.0-4.8) k/uL ESR (0-20) mm/hr Retic Count (0.5-2.0) % Chloride (98-107) mmol/L BUN 40.0 H (7-17) mg/dL Creatinine 5.6 H (0.52-1.04) mg/dL Est GFR (CKD-EPI)AfAm 9.2 L (60.0-200.0) Est GFR (CKD-EPI)NonAf 8.0 L (60.0-200.0) BUN/Creatinine Ratio 7.14 L (12.00-20.00) Ratio Glucose (74-99) mg/dL POC Glucose (mg/dL) 353 H (70-110) mg/dL Ferritin (10.0-291.0) ng/mL Assessment and Plan Assessment: Ms. Desouza is a 56-year-old woman with a past medical history significant for end-stage renal disease on dialysis who presented with increased edema of the legs bilaterally and moderate ascites who hematology was consulted with regards to pancytopenia Plan: #Pancytopenia -Has undergone bone marrow biopsy on 05/19/2016 which noted normal cellularity for age with mild dyserythropoiesis with less than 10% erythroid precursors cells and normal cytogenetics -She has no evidence of malignant process at this time -Platelet count has improved since dialysis and paracentesis done on 01/31/2022 with stable hemoglobin and white blood cell count -Anemia workup performed on admission revealed no evidence of iron, vitamin B- 12, or folate deficiency with no evidence of hemolysis and appropriate reticulocytosis given anemia -Coags were negative for coagulopathy or DIC -Anemia could be related to anemia of chronic inflammation secondary to end- stage renal disease along with her other multiple comorbidities. She states receiving IV iron and Mircera through nephrology -If she has underlying liver disease, this could help explain thrombocytopenia -We'll continue to follow the remaining anemia workup with SPEP as well as Lambda Light Chains -No acute intervention from hematology perspective -Ms. Desouza did state interest in follow-up outpatient, which we'll gladly arrange for her early next week
[2022-02-01 14:39] LABS: Free Kappa Lt Chain Qnt, Serum 19.26 mg/dL (0.33-1.94); Free Lambda Lt Chain Qnt, Seru 11.14 mg/dL (0.57-2.63)
[2022-02-01] MEDS: cloNIDine HCL 0.2 MG TAB PO SCH ×2 (16:04→20:02)
[2022-02-01 16:34] LABS: Glucose,Whole Blood 193 mg/dL (70-110)
--- NOTE | 2022-02-01 17:13 | P.PN ---
Progress Note - Text Progress Note Date: 02/01/22 Presenting complaint: Short of breath Hospital course: I'm rounding for Dr. David Bragg This is a pleasant 56-year-old patient who follows with Dr. David Bragg. Chronic stable medical conditions include COPD, diabetes, end-stage kidney disease on hemodialysis with left arm fistula, hyperlipidemia hypertension and hypertriglyceridemia-induced acute pancreatitis, pancreatic resection at [facility] 2009. January 31: Patient presents with increasing shortness of breath . Cardiac hemodialyzed yesterday 3 L removed. Getting hemodialysis today about 3-4 L of be removed. Appetite improved. Some decrease edema. Accu-Cheks were low. Insulin adjusted. Pending paracentesis. February 01: Had paracentesis done yesterday about 3 L removed. Getting ultrafiltration again done today. Breathing better. Edema was gone down. Oral intake fair. Patient dropped her blood pressure at this morning. About 80 systolic. Blood pressure medications being adjusted by nephrology. Discussed with patient. Past medActive Medications Hydrocodone Bitart/Acetaminophen (Hydrocodone/Apap 7.5-325mg 1 Each Tab) 1 each PO TID [facility] Last Admin: 02/01/22 07:54 Dose: 1 each Amlodipine Besylate (Amlodipine 5 Mg Tab) 5 mg PO DAILY [facility] Last Admin: 02/01/22 07:54 Dose: 5 mg Aspirin (Aspirin 325 Mg Tab) 325 mg PO DAILY [facility] Last Admin: 02/01/22 07:54 Dose: 325 mg Calcium Carbonate/Glycine (Calcium Carbonate 500 Mg Chewable) 500 mg PO TID PRN PRN Reason: GI Upset Last Admin: 01/30/22 19:46 Dose: 500 mg Clonidine (Clonidine Hcl 0.2 Mg Tab) 0.2 mg PO TID [facility] Darbepoetin Drew (Darbepoetin Drew 40 Mcg/0.4 Ml Syringe) 40 mcg SQ Q7D [facility] Last Admin: 02/01/22 12:43 Dose: 40 mcg Diazepam (Diazepam 5 Mg Tab) 5 mg PO DAILY PRN PRN Reason: Anxiety Diazepam (Diazepam 5 Mg Tab) 5 mg PO HS [facility] Last Admin: 01/31/22 22:04 Dose: 5 mg Furosemide (Furosemide 80 Mg Tab) 80 mg PO BID@0300,1300 [facility] Last Admin: 02/01/22 16:43 Dose: Not Given Gabapentin (Gabapentin 100 Mg Cap) 100 mg PO TID [facility] Last Admin: 02/01/22 07:55 Dose: 100 mg Hydralazine HCl (Hydralazine Hcl 25 Mg Tab) 25 mg PO QID [facility] Insulin Aspart (Insulin Aspart (Novolog) 100 Unit/Ml Vial) 10 unit SQ AC-TID [facility] Last Admin: 02/01/22 12:44 Dose: 10 unit Insulin Aspart (Insulin Aspart (Novolog) 100 Unit/Ml Vial) 0 unit SQ ACHS [facility]; Protocol Last Admin: 02/01/22 12:44 Dose: 10 unit Insulin Detemir (Insulin Detemir (Levemir) 100 Unit/Ml Syr) 35 unit SQ [facility] Last Admin: 01/31/22 22:09 Dose: 35 unit Levocarnitine (Levocarnitine (With Sugar) 100 Mg/Ml Bottle) 250 mg PO BID PRN PRN Reason: Muscle Pain Stop: 02/04/22 09:41 Lidocaine/Prilocaine (Lidocaine-Prilocaine 2.5-2.5% Cream 5 Gm Tube) 1 applic TOPICAL TUTHSA PRN; Protocol PRN Reason: AVF access Dialysis Melatonin (Melatonin 3 Mg Tablet) 12 mg PO [facility] Last Admin: 01/31/22 22:15 Dose: 12 mg Metoprolol Tartrate (Metoprolol Tartrate 50 Mg Tab) 50 mg PO TID [facility] Last Admin: 02/01/22 07:53 Dose: 50 mg Midodrine (Midodrine 5 Mg Tab) 10 mg PO DAILY PRN PRN Reason: Blood Pressure - Low Last Admin: 02/01/22 12:45 Dose: 10 mg Nitroglycerin (Nitroglycerin Sl Tabs 0.4 Mg Tab) 0.4 mg SUBLINGUAL Q5M PRN PRN Reason: Chest Pain Ondansetron HCl (Ondansetron 4 Mg Tab) 4 mg PO TID PRN PRN Reason: Nausea Last Admin: 02/01/22 04:42 Dose: 4 mg Pantoprazole Sodium (Pantoprazole 40 Mg Tablet) 40 mg PO [facility] Last Admin: 01/31/22 22:05 Dose: 40 mg Ropinirole HCl (Ropinirole Hcl 1 Mg Tab) 1 mg PO BID [facility] Last Admin: 02/01/22 07:53 Dose: 1 mg Sevelamer Carbonate (Sevelamer 800 Mg Tab) 800 mg PO DAILY PRN PRN Reason: WITH SNACK Sevelamer Carbonate (Sevelamer 800 Mg Tab) 2,400 mg PO TID-W/MEALS [facility] Last Admin: 02/01/22 07:53 Dose: 2,400 mg Sildenafil Citrate (Sildenafil 20 Mg Tab) 20 mg PO TID [facility] Last Admin: 02/01/22 07:54 Dose: 20 mg Tramadol HCl (Tramadol 50 Mg Tab) 50 mg PO BID PRN PRN Reason: Pain Last Admin: 02/01/22 03:17 Dose: 50 mg Zinc Sulfate (Zinc Sulfate 220 Mg Cap) 220 mg PO DAILY [facility] Last Admin: 02/01/22 07:53 Dose: 220 mg ical history to include: Diastolic heart failure, valvular heart disease status post mitral valve repair in the setting of endocarditis, end-stage kidney disease on hemodialysis, anemia, diabetes mellitus type, hyperlipidemia, hypertension, secondary pulmonary hypertension with renal bone disease, anemia of chronic kidney disease, fatty liver disease leading to cirrhosis with portal hypertension, as cites, acute kidney injury after pancreatic surgery requiring hemodialysis previously 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 No alcohol. . Family history: Cancer, CHF, diabetes Physical examination: VITAL SIGNS: 97.7, 55, 18, 100/52, 99% room air GENERAL: Sitting up comfortable EYES: Pupils equal. Conjunctiva normal. HEENT: External appearance of nose and ears normal, oral cavity grossly normal. NECK: JVD not raised; masses not palpable. HEART: First and second heart sounds are normal; edema present LUNGS: Respiratory rate normal; clear to auscultation. ABDOMEN: Soft, distended nontender, liver spleen not palpable, no masses palpable. PSYCH: Alert and oriented x3; mood and affect normal. INVESTIGATIONS, reviewed in the clinical context: February 01: WBC 4 hemoglobin 10.3 platelets 113 progression 4.9 BUN 40 creatinine 5.6 WBC 3.3 hemoglobin 10.4 platelets 102 potassium 4.4 BUN 25 creatinine 4.25 IgG 1030 IgA to 1 for IgM 187 rheumatoid factor XI Assessment and plan: -Fluid over load multifactorial: Improving Daily ultrafiltration -Hypertensive heart disease Norvasc, Catapres, hydralazine, Lopressor -Secondary severe pulmonary hypertension -Severe tricuspid regurgitation Follow clinically - ascites secondary to cirrhosis: Lasix 80 mg twice a day. Pending paracentesis -Portal hypertension with hepatosplenomegaly secondary to cirrhosis Lasix -Cirrhosis secondary to fatty liver Patient does follow with Dr. Andrei Guaman Diabetes mellitus type 2, chronically on insulin. Uncontrolled with hypoglycemia. Levemir 35 units subcu daily at bedtime. Accu-Chek. -End-stage kidney disease on hemodialysis Hemodialysis, Thursday. Nephrology -Hyperlipidemia Cardiac diet -Restless leg syndrome On Requip 1 mg twice a day -Essential hypertension Norvasc, Catapres, hydralazine, Lopressor 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 renvela -Painful peripheral neuropathy: Better Neurontin 100 mg 3 times a day -Chronic insomnia from multiple medical problems Melatonin Hemodialysis today. Dropped blood pressure earlier today. Medication be adjusted by nephrology. Discussed with the patient. Hold for 24 hours to make sure blood pressure is stable
[2022-02-01] MEDS: MELATONIN 3 MG TABLET PO SCH (20:05)
[2022-02-01] MEDS: diazePAM 5 MG TAB PO SCH (20:05)
[2022-02-01] MEDS: PANTOPRAZOLE 40 MG TABLET PO SCH (20:05)
[2022-02-01 20:51] LABS: Glucose,Whole Blood 114 mg/dL (70-110)
[2022-02-01] MEDS: INSULIN DETEMIR (LEVEMIR) 100 UNIT/ML SYR SQ SCH (21:22)
[2022-02-02] MEDS: FUROSEMIDE 80 MG TAB PO SCH (04:02)
[2022-02-02] MEDS: ONDANSETRON 4 MG TAB PO PRN (05:40)
[2022-02-02 07:39] LABS: Glucose,Whole Blood 265 mg/dL (70-110)
[2022-02-02] MEDS: ZINC SULFATE 220 MG CAP PO SCH (08:09)
[2022-02-02] MEDS: GABAPENTIN 100 MG CAP PO SCH (08:09)
[2022-02-02] MEDS: SEVELAMER 800 MG TAB PO SCH (08:09)
[2022-02-02] MEDS: ASPIRIN 325 MG TAB PO SCH (08:10)
[2022-02-02] MEDS: HYDROcodone/APAP 7.5-325MG 1 EACH TAB PO SCH (08:10)
[2022-02-02] MEDS: METOPROLOL TARTRATE 50 MG TAB PO SCH (08:10)
[2022-02-02] MEDS: amLODIPine 5 MG TAB PO SCH (08:10)
[2022-02-02] MEDS: SILDENAFIL 20 MG TAB PO SCH (08:10)
[2022-02-02] MEDS: INSULIN ASPART (NovoLOG) 100 UNIT/ML VIAL SQ SCH ×2 (08:13)
[2022-02-02] MEDS: cloNIDine HCL 0.2 MG TAB PO SCH (08:15)
[2022-02-02] MEDS: hydrALAZINE HCL 25 MG TAB PO SCH (08:15)
[2022-02-02 08:19] VITALS: BP 139/57; PULSE 72; RESP 18; TEMP 98.4
--- NOTE | 2022-02-02 10:44 | P.PN ---
Subjective Patient is seen in follow-up for end-stage renal disease. She is maintained on hemodialysis on Thursday schedule. Underwent paracentesis this admission with 3.3 L drained. Denies chest pain or shortness of breath. On room air. Blood pressure dropped into the systolic 80s yesterday. Blood pressure meds were adjusted. Stable this morning. Tolerated 3 L ultrafiltration yesterday. Vital signs are stable. General: Awake. No acute distress. HEENT: Head exam is unremarkable. LUNGS: Breath sounds decreased. HEART: Rate and Rhythm are regular. ABDOMEN: Soft, mild distention. EXTREMITITES: 1+ edema. Chronic changes noted. No drainage. Objective - Vital Signs Vital signs: Vital Signs Temp 98.4 F 02/02/22 07:00 Pulse 72 02/02/22 07:00 Resp 18 02/02/22 07:00 BP 139/57 02/02/22 07:00 Pulse Ox 100 02/02/22 07:00 FiO2 Intake & Output 02/01/22 02/02/22 02/02/22 18:59 06:59 18:59 Intake Total 776 240 Output Total 3200 Balance -2424 240 Intake: Oral 476 240 Hemodialysis 300 Output: Hemodialysis 3200 Other: # Voids 1 # Bowel Movements 0 - Labs CBC & Chem 7: 02/01/22 06:43 02/01/22 06:43 Labs: Abnormal Lab Results - Last 24 Hours (Table) 01/31/22 02/01/22 02/01/22 Range/Units 15:58 06:43 06:43 WBC 4.01 L (4.50-10.00) X 10*3/uL RBC 3.41 L (4.10-5.20) X 10*6/uL Hgb 10.3 L (12.0-15.0) g/dL Hct 33.4 L (37.2-46.3) % MCV 97.9 H (80.0-97.0) fL MCHC 30.8 L (32.0-37.0) g/dL RDW 17.2 H (11.5-14.5) % Plt Count 113 L (140-440) X 10*3/uL Lymphocytes # 0.62 L (0.90-5.00) X 10*3/uL BUN 40.0 H (9.0-27.0) mg/dL Creatinine 5.6 H (0.6-1.5) mg/dL Est GFR (CKD-EPI)AfAm 9.2 L (60.0-200.0) Est GFR (CKD-EPI)NonAf 8.0 L (60.0-200.0) BUN/Creatinine Ratio 7.14 L (12.00-20.00) Ratio POC Glucose (mg/dL) (70-110) mg/dL Free Tea LC, Quant 19.26 H (0.33-1.94) mg/dL Free Lambda LC, Quant 11.14 H (0.57-2.63) mg/dL 02/01/22 02/01/22 02/01/22 Range/Units 12:01 16:32 20:49 WBC (4.50-10.00) X 10*3/uL RBC (4.10-5.20) X 10*6/uL Hgb (12.0-15.0) g/dL Hct (37.2-46.3) % MCV (80.0-97.0) fL MCHC (32.0-37.0) g/dL RDW (11.5-14.5) % Plt Count (140-440) X 10*3/uL Lymphocytes # (0.90-5.00) X 10*3/uL BUN (9.0-27.0) mg/dL Creatinine (0.6-1.5) mg/dL Est GFR (CKD-EPI)AfAm (60.0-200.0) Est GFR (CKD-EPI)NonAf (60.0-200.0) BUN/Creatinine Ratio (12.00-20.00) Ratio POC Glucose (mg/dL) 353 H 193 H 114 H (70-110) mg/dL Free Tea LC, Quant (0.33-1.94) mg/dL Free Lambda LC, Quant (0.57-2.63) mg/dL 02/02/22 Range/Units 07:37 WBC (4.50-10.00) X 10*3/uL RBC (4.10-5.20) X 10*6/uL Hgb (12.0-15.0) g/dL Hct (37.2-46.3) % MCV (80.0-97.0) fL MCHC (32.0-37.0) g/dL RDW (11.5-14.5) % Plt Count (140-440) X 10*3/uL Lymphocytes # (0.90-5.00) X 10*3/uL BUN (9.0-27.0) mg/dL Creatinine (0.6-1.5) mg/dL Est GFR (CKD-EPI)AfAm (60.0-200.0) Est GFR (CKD-EPI)NonAf (60.0-200.0) BUN/Creatinine Ratio (12.00-20.00) Ratio POC Glucose (mg/dL) 265 H (70-110) mg/dL Free Tea LC, Quant (0.33-1.94) mg/dL Free Lambda LC, Quant (0.57-2.63) mg/dL Assessment and Plan Plan: Assessment: 1. End-stage renal disease maintained on hemodialysis on Thursday schedule. 2. Volume overload. Paracentesis done 01/31/2022 with 3.3 L drained. 3. Acute on chronic diastolic CHF with moderate to severe pulmonary hypertension and tricuspid regurgitation. 4. Hypertension with chronic kidney disease. Currently controlled. 5. Chronic kidney disease mineral bone disease maintained on Renvela. 6. Diabetes mellitus. 7. Pancytopenia. Hematology following. High ferritin level noted. On . Plan: Hemodialysis on Thursday. Maintain current antihypertensives. Hold clonidine and hydralazine for systolic blood pressure less than 120.
--- NOTE | 2022-02-02 13:04 | P.DS ---
Providers Date of admission: 01/29/22 19:54 Expected date of discharge: 02/02/22 Attending physician: David Bragg Consults: 01/29/22 19:48 Consult Physician Routine Consulting Provider: Royal Jones Consult Reason/Comments: fluid overload Do you want consulting provider notified?: Yes 01/29/22 19:54 Consult Physician Routine Consulting Provider: Alex Courtney Consult Reason/Comments: chest pain Do you want consulting provider notified?: Yes 01/30/22 18:28 Consult Physician Routine Consulting Provider: Cirilo Garay Consult Reason/Comments: pancytopenia Do you want consulting provider notified?: Yes 01/30/22 18:29 Consult Physician Routine Consulting Provider: David Cole Consult Reason/Comments: paracentesis Do you want consulting provider notified?: Yes Primary care physician: David Bragg [facility] Hospital Course: Presenting complaint: Short of breath Hospital course: I'm rounding for Dr. David Bragg This is a pleasant 56-year-old patient who follows with Dr. David Bragg. Chronic stable medical conditions include COPD, diabetes, end-stage kidney disease on hemodialysis with left arm fistula, hyperlipidemia hypertension and hypertriglyceridemia-induced acute pancreatitis, pancreatic resection at [facility] 2009. January 31: Patient presents with increasing shortness of breath . Cardiac hemodialyzed yesterday 3 L removed. Getting hemodialysis today about 3-4 L of be removed. Appetite improved. Some decrease edema. Accu-Cheks were low. Insulin adjusted. Pending paracentesis. February 01: Had paracentesis done yesterday about 3 L removed. Getting ultrafiltration again done today. Breathing better. Edema was gone down. Oral intake fair. Patient dropped her blood pressure at this morning. About 80 systolic. Blood pressure medications being adjusted by nephrology. Discussed with patient. February 02: Feeling well. Breathing stable. Decrease edema. Tolerating diet. Per nephrology blood pressure medication adjusted. Blood pressure parameters are discussed with the patient and the nurse and being given in writing. Discussion and discharge planning more than 35 minutes. Past medical history to include: Diastolic heart failure, valvular heart disease status post mitral valve repair in the setting of endocarditis, end-stage kidney disease on hemodialysis, anemia, diabetes mellitus type, hyperlipidemia, hypertension, secondary pulmonary hypertension with renal bone disease, anemia of chronic kidney disease, fatty liver disease leading to cirrhosis with portal hypertension, ascites, acute kidney injury after pancreatic surgery requiring hemodialysis previously 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 No alcohol. . Family history: Cancer, CHF, diabetes Physical examination: VITAL SIGNS: 98.4, 72, 18, 139/57, 100% room air GENERAL: Sitting up comfortable EYES: Pupils equal. Conjunctiva normal. HEENT: External appearance of nose and ears normal, oral cavity grossly normal. NECK: JVD not raised; masses not palpable. HEART: First and second heart sounds are normal; edema present LUNGS: Respiratory rate normal; clear to auscultation. ABDOMEN: Soft, distended nontender, liver spleen not palpable, no masses palpable. PSYCH: Alert and oriented x3; mood and affect normal. INVESTIGATIONS, reviewed in the clinical context: February 01: WBC 4 hemoglobin 10.3 platelets 113 progression 4.9 BUN 40 creatinine 5.6 WBC 3.3 hemoglobin 10.4 platelets 102 potassium 4.4 BUN 25 creatinine 4.25 IgG 1030 IgA to 1 for IgM 187 rheumatoid factor XI Assessment and plan: -Fluid over load multifactorial: Much improved Daily ultrafiltration -Hypertensive heart disease Norvasc, Catapres, hydralazine, Lopressor -Secondary severe pulmonary hypertension -Severe tricuspid regurgitation Follow clinically - ascites secondary to cirrhosis: Lasix 80 mg twice a day. Pending paracentesis -Portal hypertension with hepatosplenomegaly secondary to cirrhosis Lasix -Cirrhosis secondary to fatty liver Patient does follow with Dr. Andrei Guaman Diabetes mellitus type 2, chronically on insulin. Uncontrolled with hypogl ycemia. Levemir 35 units subcu daily at bedtime. Accu-Chek. -End-stage kidney disease on hemodialysis Hemodialysis, Thursday. Nephrology -Hyperlipidemia Cardiac diet -Restless leg syndrome On Requip 1 mg twice a day -Essential hypertension Norvasc, Catapres, hydralazine, Lopressor. Blood pressure parameters given. 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 renvela -Painful peripheral neuropathy: Better Neurontin 100 mg 3 times a day -Chronic insomnia from multiple medical problems Melatonin Disposition: Home Patient Condition at Discharge: Fair Plan - Discharge Summary Discharge Rx Participant: No New Discharge Prescriptions: New hydrALAZINE HCL [Apresoline] 25 mg PO QID #120 tab Darbepoetin Drew [Aranesp] 40 mcg SQ Q7D each cloNIDine HCL [Catapres] 0.2 mg PO TID #90 tab Continue HYDROcodone/APAP 7.5-325MG [[place] 7.5-325] 1 tab PO TID traMADol HCL [Ultram] 50 mg PO BID PRN PRN Reason: Pain Omeprazole 20 mg PO HS Lidocaine-Prilocaine Cream [Emla Cream 2.5%/2.5%] 1 applic TOPICAL TUTHSA PRN PRN Reason: AVF access Dialysis Ondansetron [Zofran] 4 mg PO TID PRN PRN Reason: Nausea rOPINIRole HCL [Requip] 1 mg PO BID diazePAM [Valium] 5 mg PO HS amLODIPine [Norvasc] 5 mg PO DAILY 30 Days #30 tab Metoprolol Tartrate [Lopressor] 50 mg PO TID Zinc Sulfate [Orazinc] 220 mg PO DAILY 10 Days #10 cap Sevelamer [Renvela] 800 mg PO DAILY PRN PRN Reason: WITH SNACK Sevelamer [Renvela] 2,400 mg PO TID-W/MEALS Midodrine HCl [ProAmatine] 10 mg PO DAILY PRN PRN Reason: Blood Pressure - Low INSULIN LISPRO (HumaLOG) [humaLOG] 10 units SQ AC-TID Melatonin 12 mg PO HS Emmett-3 Fatty Acids/Fish Oil [Emmett-3 Fish Oil 1,200 mg Sfgl] 1 cap PO DAILY Calcium Carbonate [Tums] 500 mg PO TID PRN PRN Reason: Gi Upset Gabapentin [Neurontin] 100 mg PO TID Furosemide [Lasix] 80 mg PO BID@0300,1300 INSULIN LISPRO (HumaLOG) [humaLOG] See Protocol SQ AC-TID Aspirin 325 mg PO DAILY 90 Days #90 tab Sildenafil [Revatio] 20 mg PO TID 30 Days #90 tab diazePAM [Valium] 5 mg PO DAILY PRN PRN Reason: Anxiety Changed Insulin Glargine,Hum.rec.anlog [Lantus Solostar Pen] 40 units SQ HS #0 Discontinued cloNIDine HCL [Catapres] 0.3 mg PO TID hydrALAZINE HCL [Apresoline] 100 mg PO QID Discharge Medication List HYDROcodone/APAP 7.5-325MG [[place] 7.5-325] 1 tab PO TID 11/08/19 [History] traMADol HCL [Ultram] 50 mg PO BID PRN 05/13/20 [History] Omeprazole 20 mg PO HS 08/02/20 [History] Lidocaine-Prilocaine Cream [Emla Cream 2.5%/2.5%] 1 applic TOPICAL TUTHSA PRN 06/18/21 [History] Ondansetron [Zofran] 4 mg PO TID PRN 06/18/21 [History] rOPINIRole HCL [Requip] 1 mg PO BID 06/18/21 [History] Gabapentin [Neurontin] 100 mg PO TID 07/08/21 [History] diazePAM [Valium] 5 mg PO HS 08/08/21 [History] Furosemide [Lasix] 80 mg PO BID@0300,1300 09/26/21 [History] INSULIN LISPRO (HumaLOG) [humaLOG] See Protocol SQ AC-TID 11/30/21 [History] Aspirin 325 mg PO DAILY 90 Days #90 tab 12/01/21 [Rx] amLODIPine [Norvasc] 5 mg PO DAILY 30 Days #30 tab 12/01/21 [Rx] Metoprolol Tartrate [Lopressor] 50 mg PO TID 12/13/21 [History] Sildenafil [Revatio] 20 mg PO TID 30 Days #90 tab 12/17/21 [Rx] Zinc Sulfate [Orazinc] 220 mg PO DAILY 10 Days #10 cap 12/17/21 [Rx] Calcium Carbonate [Tums] 500 mg PO TID PRN 01/29/22 [History] INSULIN LISPRO (HumaLOG) [humaLOG] 10 units SQ AC-TID 01/29/22 [History] Melatonin 12 mg PO HS 01/29/22 [History] Midodrine HCl [ProAmatine] 10 mg PO DAILY PRN 01/29/22 [History] Emmett-3 Fatty Acids/Fish Oil [Emmett-3 Fish Oil 1,200 mg Sfgl] 1 cap PO DAILY 01/29/22 [History] Sevelamer [Renvela] 2,400 mg PO TID-W/MEALS 01/29/22 [History] Sevelamer [Renvela] 800 mg PO DAILY PRN 01/29/22 [History] diazePAM [Valium] 5 mg PO DAILY PRN 01/29/22 [History] Darbepoetin Drew [Aranesp] 40 mcg SQ Q7D each 02/02/22 [Rx] Insulin Glargine,Hum.rec.anlog [Lantus Solostar Pen] 40 units SQ HS #0 02/02/22 [Rx] cloNIDine HCL [Catapres] 0.2 mg PO TID #90 tab 02/02/22 [Rx] hydrALAZINE HCL [Apresoline] 25 mg PO QID #120 tab 02/02/22 [Rx] Follow up Appointment(s)/Referral(s): Urbano Tesfaye MD [STAFF PHYSICIAN] - 2 Weeks David Bragg MD [Primary Care Provider] - 1-2 days Patient Instructions/Handouts: Paracentesis (DC) Discharge Disposition: HOME SELF-CARE
[2022-02-04 15:54] LABS: Albumin 4.11 g/dL (3.80-4.90); Gamma Globulin 0.98 g/dL (0.70-1.50)
== END 2022-02-02 11:26 | disposition home or self-care (01) ==
LOC: EC 16:43 → 6NMEDSUR 19:54
PROVIDERS: ADMIT Family Medicine; ATTEND Family Medicine
DX: R07.89 Other chest pain (principal); I48.91 Unspecified atrial fibrillation; I25.10 Atherosclerotic heart disease of native coronary artery without angina pectoris; J44.9 Chronic obstructive pulmonary disease, unspecified; E11.22 Type 2 diabetes mellitus with diabetic chronic kidney disease; E78.5 Hyperlipidemia, unspecified; I13.2 Hypertensive heart and chronic kidney disease with heart failure and with stage 5 chronic kidney disease, or end stage renal disease; I50.33 Acute on chronic diastolic (congestive) heart failure; N18.6 End stage renal disease; I27.20 Pulmonary hypertension, unspecified; G25.81 Restless legs syndrome; D63.1 Anemia in chronic kidney disease; G47.00 Insomnia, unspecified; F41.9 Anxiety disorder, unspecified; K86.1 Other chronic pancreatitis; L97.909 Non-pressure chronic ulcer of unspecified part of unspecified lower leg with unspecified severity; N25.0 Renal osteodystrophy; S81.802A Unspecified open wound, left lower leg, initial encounter; X58.XXXA Exposure to other specified factors, initial encounter; I27.29 Other secondary pulmonary hypertension; I08.1 Rheumatic disorders of both mitral and tricuspid valves; R18.8 Other ascites; K74.60 Unspecified cirrhosis of liver; K76.6 Portal hypertension; R16.2 Hepatomegaly with splenomegaly, not elsewhere classified; E11.649 Type 2 diabetes mellitus with hypoglycemia without coma; E11.42 Type 2 diabetes mellitus with diabetic polyneuropathy; F51.04 Psychophysiologic insomnia; D61.818 Other pancytopenia; Z86.16 Personal history of COVID-19; Z99.2 Dependence on renal dialysis; Z95.3 Presence of xenogenic heart valve; Z79.4 Long term (current) use of insulin; Z79.82 Long term (current) use of aspirin; Z79.899 Other long term (current) drug therapy; Z88.1 Allergy status to other antibiotic agents; Z88.5 Allergy status to narcotic agent; Z83.3 Family history of diabetes mellitus; Z82.49 Family history of ischemic heart disease and other diseases of the circulatory system; Z80.8 Family history of malignant neoplasm of other organs or systems
CPT/HCPCS: 96372 ×5; 96376; 96374; 99285; 36415; 94760; 93005; 93306; 83921; 83880; 80061; 80053 ×3; 85652; 82607; 82728; 82746; 83540; 83550; 83615; 83735 ×2; 84484 ×2; 85025 ×3; 85384; 85610 ×2; 85045; 85730 ×2; 86431; 82784 ×3; 84165; 83010; 86038; 86334; 83883; 71046; 76705; 49083; G0378 ×5; J2270 ×2; J0881; 90935

== ENCOUNTER 2022-02-08 15:33 | Emergency (ER) | payer MEDICARE, OTHER ==
[2022-02-08 15:41] VITALS: PULSE 64; TEMP 98.1
[2022-02-08] MEDS ORDERED: ONDANSETRON 4 MG/2 ML VIAL IVP STA (18:56)
[2022-02-08] MEDS ORDERED: MORPHINE SULFATE 4 MG/ML SYRINGE IVP STA (18:56)
[2022-02-08 19:31] LABS: Anisocytosis Slight; Basophils % (A) 0 %; Eosinophils # (A) 0.1 k/uL (0-0.7); Eosinophils % (A) 2 %; HCT 28.5 % (34.0-46.0); HGB 9.4 gm/dL (11.4-16.0); Hypochromasia Slight; Lymphocytes # (A) 0.4 k/uL (1.0-4.8); Lymphocytes % (A) 17 %; MCH 31.4 pg (25.0-35.0); MCHC 33.1 g/dL (31.0-37.0); MCV 94.6 fL (80.0-100.0); Mean Platelet Volume 8.4; Monocytes # (A) 0.2 k/uL (0-1.0); Monocytes % (A) 7 %; Neutrophils # (A) 1.5 k/uL (1.3-7.7); Neutrophils % (A) 70 %; Platelet Count 107 k/uL (150-450); RBC 3.01 m/uL (3.80-5.40); RDW 16.2 % (11.5-15.5); WBC 2.1 k/uL (3.8-10.6)
[2022-02-08 19:40] LABS: Albumin 4.4 g/dL (3.5-5.0); Calcium 9.5 mg/dL (8.4-10.2); Total Bilirubin 0.6 mg/dL (0.2-1.3); Total Protein 6.9 g/dL (6.3-8.2)
--- NOTE | 2022-02-08 19:59 | ED ---
General Adult HPI - General Chief complaint: Wound/Laceration Stated complaint: PCP sent for infection in leg Time Seen by Provider: 02/08/22 18:33 Source: patient, RN notes reviewed Mode of arrival: ambulatory Limitations: no limitations - History of Present Illness Initial comments: 56-year-old female presents to the emergency department for evaluation wound to the left lower extremity. Patient states the wounds appeared after localized area of blistering from a medication taken more than a month ago. Patient is concerned about possible infection due to a history of recurrent wounds on her legs. States she contacted her PCP but due to the fact that it was a weekend she was sent to the emergency department for further evaluation and treatment. Patient denies fever, chills, headache, chest pain, shortness of breath, abdominal pain, nausea, vomiting, diarrhea, or dysuria. - Related Data Home Medications Medication Instructions Recorded Confirmed HYDROcodone/APAP 7.5-325MG [[place] 1 tab PO TID 11/08/19 01/29/22 7.5-325] traMADol HCL [Ultram] 50 mg PO BID PRN 05/13/20 01/29/22 Omeprazole 20 mg PO HS 08/02/20 01/29/22 Lidocaine-Prilocaine Cream [Emla 1 applic TOPICAL TUTHSA PRN 06/18/21 01/29/22 Cream 2.5%/2.5%] Ondansetron [Zofran] 4 mg PO TID PRN 06/18/21 01/29/22 rOPINIRole HCL [Requip] 1 mg PO BID 06/18/21 01/29/22 Gabapentin [Neurontin] 100 mg PO TID 07/08/21 01/29/22 diazePAM [Valium] 5 mg PO HS 08/08/21 01/29/22 Furosemide [Lasix] 80 mg PO BID@0300,1300 09/26/21 01/29/22 INSULIN LISPRO (HumaLOG) [humaLOG] See Protocol SQ AC-TID 11/30/21 01/29/22 Metoprolol Tartrate [Lopressor] 50 mg PO TID 12/13/21 01/29/22 Calcium Carbonate [Tums] 500 mg PO TID PRN 01/29/22 01/29/22 INSULIN LISPRO (HumaLOG) [humaLOG] 10 units SQ AC-TID 01/29/22 01/29/22 Melatonin 12 mg PO HS 01/29/22 01/29/22 Midodrine HCl [ProAmatine] 10 mg PO DAILY PRN 01/29/22 01/29/22 [place]-3 Fatty Acids/Fish Oil 1 cap PO DAILY 01/29/22 01/29/22 [[place]-3 Fish Oil 1,200 mg Sfgl] Sevelamer [Renvela] 2,400 mg PO TID-W/MEALS 01/29/22 01/29/22 Sevelamer [Renvela] 800 mg PO DAILY PRN 01/29/22 01/29/22 diazePAM [Valium] 5 mg PO DAILY PRN 01/29/22 01/29/22 Previous Rx's Medication Instructions Recorded Aspirin 325 mg PO DAILY 90 Days #90 tab 12/01/21 amLODIPine [Norvasc] 5 mg PO DAILY 30 Days #30 tab 12/01/21 Sildenafil [Revatio] 20 mg PO TID 30 Days #90 tab 12/17/21 Zinc Sulfate [Orazinc] 220 mg PO DAILY 10 Days #10 cap 12/17/21 Darbepoetin Drew [Aranesp] 40 mcg SQ Q7D each 02/02/22 Insulin Glargine,Hum.rec.anlog 40 units SQ HS #0 02/02/22 [Lantus Solostar Pen] cloNIDine HCL [Catapres] 0.2 mg PO TID #90 tab 02/02/22 hydrALAZINE HCL [Apresoline] 25 mg PO QID #120 tab 02/02/22 Cephalexin [Keflex] 500 mg PO Q6HR 5 Days #20 cap 02/08/22 Allergies Allergy/AdvReac Type Severity Reaction Status Date / Time hydromorphone [From Dilaudid] Allergy Swelling Verified 02/08/22 15:41 Anesthetics - Amide Type - AdvReac cardiac Verified 02/08/22 15:41 Select A arrest Anesthetics - Andree Type- AdvReac cardiac Verified 02/08/22 15:41 Parabens arrest ciprofloxacin [From Cipro] AdvReac AFFECTED Verified 02/08/22 15:41 EYESIGHT ciprofloxacin HCl AdvReac AFFECTED Verified 02/08/22 15:41 [From Cipro] EYESIGHT Iodinated Contrast Media AdvReac RENAL Verified 02/08/22 15:41 FAILURE Review of Systems ROS Statement: Those systems with pertinent positive or pertinent negative responses have been documented in the HPI. ROS Other: All systems not noted in ROS Statement are negative. 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 History of Any Multi-Drug Resistant Organisms: MRSA Date of last positivie culture/infection: 08-02-20 MDRO Source:: Blood Past Surgical History: Cardiac Valve Replacement, Orthopedic Surgery, Uterine Ablation Additional Past Surgical History / Comment(s): Colonoscopy with polypectomy/biopsy, pancreatic resection at [facility] 2009, bone marrow biopsies X2, dialysis chest port X3 with removals, left arm shunt placement for dialysis and a revision done with shunt, left forearm vein revision, liver biopsy, mitral valve repacement 2019 at [facility],. paracentesis procedures, bilateral cataract removals/lens implants, then laser eye surgery to remove film on lenses, dental surgery. Past Anesthesia/Blood Transfusion Reactions: No Reported Reaction Additional Past Anesthesia/Blood Transfusion Reaction / Comment(s): Pt allergic to Amide type anesthesia/andree type parabins. Pt has received blood transfusions without reaction. Past Psychological History: Anxiety Smoking Status: Never smoker Past Alcohol Use History: None Reported Past Drug Use History: None Reported - Past Family History Brother(s) Family Medical History: No Reported History Mother Family Medical History: Cancer, Congestive Heart Failure (CHF), Diabetes Mellitus Additional Family Medical History / Comment(s): Throat cancer. Father Family Medical History: Hypertension Additional Family Medical History / Comment(s): Alcoholism. General Exam Limitations: no limitations (Well-developed, well-nourished female in no acute distress. Initial temperature 98.1, pulse 64, respirations 20, blood pressure 166/94, pulse ox 99% on room air.) General appearance: alert, in no apparent distress Respiratory exam: Present: normal lung sounds bilaterally. Absent: respiratory distress, wheezes, rales, rhonchi, stridor Cardiovascular Exam: Present: regular rate, normal rhythm, systolic murmur GI/Abdominal exam: Present: soft, normal bowel sounds. Absent: distended, tenderness, guarding, rebound, rigid Left Lower Leg exam: Present: full ROM, tenderness (Mild tenderness upon palpation of the wound border.). Absent: normal inspection (Shallow ulcerated wound to the distal aspect of the left lower extremity. Non-erythematous. No drainage. ), swelling Foot/Toe exam: Present: normal inspection, full ROM Neurovascular tendon exam: Present: no vascular compromise Neurological exam: Present: alert, oriented X3, CN II-XII intact Psychiatric exam: Present: normal affect, normal mood Course Vital Signs 02/08/22 02/08/22 02/08/22 15:38 21:20 21:23 Temperature 98.1 F Pulse Rate 64 Respiratory 20 16 Rate Blood Pressure 166/94 174/79 174/79 O2 Sat by Pulse 99 Oximetry Medical Decision Making - Medical Decision Making This is a 56-year-old female with a past medical history of COPD, renal insufficiency, and diabetes who presents to the emergency department for evaluation of a wound to the left lower extremity. Upon exam, patient is well-appearing and in no acute distress. Wound on the left lower extremity is shallow with no drainage. Laboratory studies were obtained and compared with baseline; there are no significant changes. Given patient's history of recurrent wounds in the affected area and history of poor wound healing, she bruno l be started on an oral antibiotic and instructed to follow up with her PCP for recheck. Return parameters were discussed in detail. Patient verbalizes understanding and agrees with this plan. Attending: Mihai. - Lab Data Result diagrams: 02/08/22 19:21 02/08/22 19:21 Lab Results 02/08/22 02/08/22 Range/Units 19:21 19:21 WBC 2.1 L (3.8-10.6) k/uL RBC 3.01 L (3.80-5.40) m/uL Hgb 9.4 L (11.4-16.0) gm/dL Hct 28.5 L (34.0-46.0) % MCV 94.6 (80.0-100.0) fL MCH 31.4 (25.0-35.0) pg MCHC 33.1 (31.0-37.0) g/dL RDW 16.2 H (11.5-15.5) % Plt Count 107 L (150-450) k/uL MPV 8.4 Neutrophils % 70 % Lymphocytes % 17 % Monocytes % 7 % Eosinophils % 2 % Basophils % 0 % Neutrophils # 1.5 (1.3-7.7) k/uL Lymphocytes # 0.4 L (1.0-4.8) k/uL Monocytes # 0.2 (0-1.0) k/uL Eosinophils # 0.1 (0-0.7) k/uL Basophils # 0.0 (0-0.2) k/uL Hypochromasia Slight Anisocytosis Slight Sodium 139 (137-145) mmol/L Potassium 5.0 (3.5-5.1) mmol/L Chloride 97 L (98-107) mmol/L Carbon Dioxide 29 (22-30) mmol/L Anion Gap 13 mmol/L BUN 41 H (7-17) mg/dL Creatinine 4.62 H (0.52-1.04) mg/dL Est GFR (CKD-EPI)AfAm 12 (>60 ml/min/1.73 sqM) Est GFR (CKD-EPI)NonAf 10 (>60 ml/min/1.73 sqM) Glucose 145 H (74-99) mg/dL Calcium 9.5 (8.4-10.2) mg/dL Total Bilirubin 0.6 (0.2-1.3) mg/dL AST 24 (14-36) U/L ALT 19 (4-34) U/L Alkaline Phosphatase 128 H (38-126) U/L Total Protein 6.9 (6.3-8.2) g/dL Albumin 4.4 (3.5-5.0) g/dL Disposition Clinical Impression: Infected wound Disposition: HOME SELF-CARE Condition: Stable Instructions (If sedation given, give patient instructions): Wound Infection (ED) Additional Instructions: Take antibiotic as prescribed. May take Tylenol or Motrin if needed for pain or discomfort. See your PCP for a wound recheck on Thursday or Thursday. Return to the emergency department with any new, worsening, or concerning symptoms. Prescriptions: Cephalexin [Keflex] 500 mg PO Q6HR 5 Days #20 cap Is patient prescribed a controlled substance at d/c from ED?: No Referrals: David Bragg MD [Primary Care Provider] - 1-2 days Time of Disposition: 20:47
[2022-02-08] MEDS ORDERED: CEPHALEXIN 500 MG CAP PO STA (20:43)
[2022-02-08] MEDS ORDERED: BACITRACIN OINT 1 EACH PACKET TOPICAL ONE (20:43)
[2022-02-08 21:21] VITALS: BP 174/79
[2022-02-08 21:24] VITALS: RESP 16
== END 2022-02-08 21:28 | disposition home or self-care (01) ==
LOC: EC 15:33
DX: L08.9 Local infection of the skin and subcutaneous tissue, unspecified (principal); I13.2 Hypertensive heart and chronic kidney disease with heart failure and with stage 5 chronic kidney disease, or end stage renal disease; E11.22 Type 2 diabetes mellitus with diabetic chronic kidney disease; N18.6 End stage renal disease; I50.9 Heart failure, unspecified; I25.10 Atherosclerotic heart disease of native coronary artery without angina pectoris; J44.9 Chronic obstructive pulmonary disease, unspecified; Z88.5 Allergy status to narcotic agent; Z88.1 Allergy status to other antibiotic agents; Z91.041 Radiographic dye allergy status; Z88.8 Allergy status to other drugs, medicaments and biological substances; Z99.2 Dependence on renal dialysis
CPT/HCPCS: 99283 ×2; 36415; 80053; 85025; 96374; 96375; J2270; J2405

== ENCOUNTER 2022-03-27 07:29 | Inpatient (IN) | payer MEDICARE, OTHER ==
--- NOTE | 2022-03-27 08:08 | ED ---
Chest Pain HPI - General Chief Complaint: Chest Pain Stated Complaint: Chest pain Time Seen by Provider: 03/27/22 07:50 Source: patient Mode of arrival: EMS Limitations: no limitations - History of Present Illness Initial Comments: 56year-old female with past medical history of diabetes, coronary artery disease, end-stage renal disease on hemodialysis who presents to the emergency room from her dialysis center. She reports that she went into the facility to be dialyzed today. She mentioned to them that she was having chest pain and therefore they did not complete her dialysis. She describes the chest pain is substernal without radiation. Has associated nausea without vomiting. She has had worsening lower extremity edema and abdominal distention. Has had paracentesis 3 times before. She states that Dr. Jones recommended that she come to the hospital to have dialysis done on consecutive days and also have a paracentesis performed. She denies any fevers. No missed dialysis sessions. Continues to make some urine. States she has been taking her diuretic as directed. No other alleviating, precipitating or modifying factors - Related Data Home Medications Medication Instructions Recorded Confirmed HYDROcodone/APAP 7.5-325MG [[place] 1 tab PO TID PRN 11/08/19 03/27/22 7.5-325] traMADol HCL [Ultram] 50 mg PO BID PRN 05/13/20 03/27/22 Omeprazole 20 mg PO HS 08/02/20 03/27/22 Lidocaine-Prilocaine Cream [Emla 1 applic TOPICAL TUTHSA PRN 06/18/21 03/27/22 Cream 2.5%/2.5%] Ondansetron [Zofran] 4 mg PO TID PRN 06/18/21 03/27/22 rOPINIRole HCL [Requip] 1 mg PO BID 06/18/21 03/27/22 Gabapentin [Neurontin] 100 mg PO TID 07/08/21 03/27/22 diazePAM [Valium] 5 mg PO HS 08/08/21 03/27/22 Furosemide [Lasix] 80 mg PO BID 09/26/21 03/27/22 Metoprolol Tartrate [Lopressor] 50 mg PO TID 12/13/21 03/27/22 Calcium Carbonate [Tums] 500 mg PO TID PRN 01/29/22 03/27/22 Melatonin 12 mg PO HS 01/29/22 03/27/22 Midodrine HCl [ProAmatine] 10 mg PO DAILY PRN 01/29/22 03/27/22 Sevelamer [Renvela] 3,200 mg PO TID-W/MEALS 01/29/22 03/27/22 Sevelamer [Renvela] 800 - 1,600 mg PO DAILY PRN 01/29/22 03/27/22 diazePAM [Valium] 5 mg PO DAILY PRN 01/29/22 03/27/22 INSULIN ASPART (NovoLOG) [NovoLOG 15 unit SQ TID-W/MEALS 03/27/22 03/27/22 (formulary)] Insulin Glargine,Hum.rec.anlog 45 units SQ HS 03/27/22 03/27/22 [Lantus Solostar Pen] cloNIDine HCL [Catapres] 0.1 mg PO BID PRN 03/27/22 03/27/22 Previous Rx's Medication Instructions Recorded Aspirin 325 mg PO DAILY 90 Days #90 tab 12/01/21 amLODIPine [Norvasc] 5 mg PO DAILY 30 Days #30 tab 12/01/21 Sildenafil [Revatio] 20 mg PO TID tab 03/28/22 Allergies Allergy/AdvReac Type Severity Reaction Status Date / Time hydromorphone [From Dilaudid] Allergy Swelling Verified 03/27/22 11:05 Anesthetics - Amide Type - AdvReac cardiac Verified 03/27/22 11:05 Select A arrest Anesthetics - Andree Type- AdvReac cardiac Verified 03/27/22 11:05 Parabens arrest ciprofloxacin [From Cipro] AdvReac AFFECTED Verified 03/27/22 11:05 EYESIGHT ciprofloxacin HCl AdvReac AFFECTED Verified 03/27/22 11:05 [From Cipro] EYESIGHT Iodinated Contrast Media AdvReac RENAL Verified 03/27/22 11:05 FAILURE Review of Systems ROS Statement: Those systems with pertinent positive or pertinent negative responses have been documented in the HPI. ROS Other: All systems not noted in ROS Statement are negative. EKG Findings - EKG Comments: EKG Findings:: EKG demonstrates sinus bradycardia with a rate of 58. AL interval 195. QRS 120. QTC of 477. No acute ST segment elevations or depressions. 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 History of Any Multi-Drug Resistant Organisms: MRSA Date of last positivie culture/infection: 08-02-20 MDRO Source:: Blood Past Surgical History: Cardiac Valve Replacement, Orthopedic Surgery, Uterine Ablation Additional Past Surgical History / Comment(s): Colonoscopy with polypectomy/biopsy, pancreatic resection at [facility] 2009, bone marrow biopsies X2, dialysis chest port X3 with removals, left arm shunt placement for dialysis and a revision done with shunt, left forearm vein revision, liver biopsy, [facility] paracentesis procedures, bilateral cataract removals/lens implants, then laser eye surgery to remove film on lenses, dental surgery. Past Anesthesia/Blood Transfusion Reactions: No Reported Reaction Additional Past Anesthesia/Blood Transfusion Reaction / Comment(s): Pt allergic to Amide type anesthesia/andree type parabins. Pt has received blood transfusions without reaction. Past Psychological History: Anxiety Smoking Status: Never smoker Past Alcohol Use History: None Reported Past Drug Use History: None Reported - Past Family History Brother(s) Family Medical History: No Reported History Mother Family Medical History: Cancer, Congestive Heart Failure (CHF), Diabetes Mellitus Additional Family Medical History / Comment(s): Throat cancer. Father Family Medical History: Hypertension Additional Family Medical History / Comment(s): Alcoholism. General Exam Limitations: no limitations General appearance: alert, in no apparent distress, obese Head exam: Present: atraumatic, normocephalic, normal inspection Eye exam: Present: normal appearance, PERRL, EOMI. Absent: scleral icterus, conjunctival injection, periorbital swelling ENT exam: Present: normal exam, mucous membranes moist Neck exam: Present: normal inspection. Absent: tenderness, meningismus, lymphadenopathy Respiratory exam: Present: rales. Absent: respiratory distress, wheezes, rhonchi, stridor Cardiovascular Exam: Present: normal rhythm, bradycardia, normal heart sounds. Absent: systolic murmur, diastolic murmur, rubs, gallop, clicks GI/Abdominal exam: Present: soft, distended, normal bowel sounds. Absent: tenderness, guarding, rebound, rigid Extremities exam: Present: full ROM, normal capillary refill, pedal edema. Absent: tenderness, joint swelling, calf tenderness Back exam: Present: normal inspection Neurological exam: Present: alert, oriented X3, CN II-XII intact Psychiatric exam: Present: normal affect, normal mood Skin exam: Present: warm, dry, intact, normal color. Absent: rash Course Vital Signs 03/27/22 03/27/22 03/27/22 07:45 08:00 11:23 Temperature Pulse Rate 51 L 57 L Pulse Rate [ 54 L Bilateral Sitting] Respiratory 16 20 Rate Blood Pressure 156/77 159/87 Blood Pressure [Right Arm] O2 Sat by Pulse 97 99 Oximetry 03/27/22 03/27/22 03/27/22 11:40 12:10 12:40 Temperature Pulse Rate 70 55 L 70 Pulse Rate [ Bilateral Sitting] Respiratory 20 20 20 Rate Blood Pressure 136/77 162/83 125/95 Blood Pressure [Right Arm] O2 Sat by Pulse 99 100 99 Oximetry 03/27/22 03/27/22 03/27/22 13:10 14:10 14:32 Temperature Pulse Rate 67 Pulse Rate [ 59 L 57 L Bilateral Sitting] Respiratory 20 16 15 Rate Blood Pressure 156/80 Blood Pressure 160/89 163/78 [Right Arm] O2 Sat by Pulse 100 Oximetry 03/27/22 03/27/22 03/27/22 15:15 15:30 16:00 Temperature Pulse Rate 53 L 60 52 L Pulse Rate [ Bilateral Sitting] Respiratory 18 18 20 Rate Blood Pressure 159/86 165/82 164/78 Blood Pressure [Right Arm] O2 Sat by Pulse 97 97 96 Oximetry 03/27/22 03/27/22 18:00 19:02 Temperature 97.6 F Pulse Rate Pulse Rate [ 60 Bilateral Sitting] Respiratory 18 18 Rate Blood Pressure 148/72 Blood Pressure 148/72 [Right Arm] O2 Sat by Pulse 98 Oximetry Chest Pain MDM - MDM Upon arrival patient was placed in room 1. A thorough history and physical exam was performed. IV access is established laboratory studies are conducted. Patient has a creatinine of 7.8. BNP is 30,900. Chest x-ray does demonstrate some cardiomegaly with pulmonary vascular congestion. I spoke with Dr. Chaudhary who will admit the patient for nephrology and interventional radiology consultations. I did speak with Dr. Orozco. Patient awaiting a bed on the floor in stable condition Disposition Clinical Impression: Acute pulmonary edema, ESRD (end stage renal disease) on dialysis, Chest pain Disposition: ADMITTED IP TO THIS HOSP Condition: Stable Is patient prescribed a controlled substance at d/c from ED?: No Time of Disposition: 09:51 Decision to Admit Reason: Admit from EC Decision Date: 03/27/22 Decision Time: 09:51
--- NOTE | 2022-03-27 08:43 | XR ---
EXAMINATION TYPE: XR chest 2V DATE OF EXAM: 03/27/2022 COMPARISON: 01/29/2022 HISTORY: 56-year-old female with chest pain TECHNIQUE: AP and lateral views FINDINGS: Median sternotomy wires are present. Prosthetic cardiac valve. Heart mildly enlarged. Cardiac size ma y be slightly accentuated due to low lung volumes. There may be some perihilar density accentuation. No pleural effusion. Vascular stent of the left axilla redemonstrated. IMPRESSION: Mild cardiomegaly. Heart size may be accentuated by low lung volumes. Correlate to exclude mild pulmo nary vascular congestion.
[2022-03-27 08:57] LABS: Albumin 4.1 g/dL (3.5-5.0); Calcium 8.6 mg/dL (8.4-10.2); Potassium 5.6 mmol/L (3.5-5.1); Total Bilirubin 0.8 mg/dL (0.2-1.3); Total Protein 6.3 g/dL (6.3-8.2)
[2022-03-27 08:58] LABS: Anisocytosis Slight; Basophils % (A) 1 %; Eosinophils % (A) 2 %; HCT 27.2 % (34.0-46.0); HGB 8.7 gm/dL (11.4-16.0); Hypochromasia Moderate; Lymphocytes # (A) 0.3 k/uL (1.0-4.8); Lymphocytes % (A) 14 %; MCHC 31.9 g/dL (31.0-37.0); Mean Platelet Volume 9.3; Monocytes # (A) 0.2 k/uL (0-1.0); Monocytes % (A) 8 %; Neutrophils # (A) 1.8 k/uL (1.3-7.7); Neutrophils % (A) 74 %; RBC 2.89 m/uL (3.80-5.40); RDW 16.1 % (11.5-15.5); WBC 2.4 k/uL (3.8-10.6)
[2022-03-27 08:59] LABS: Partial Thromboplastin Time 25.5 sec (22.0-30.0); Prothrombin Time 11.2 sec (9.0-12.0)
[2022-03-27] MEDS ORDERED: NALOXONE 0.4 MG/ML 1 ML VIAL IV PRN (09:52)
[2022-03-27 10:04] LABS: Platelet Count 72 k/uL (150-450)
--- NOTE | 2022-03-27 15:29 | US ---
EXAMINATION TYPE: US abdomen limited DATE OF EXAM: 03/27/2022 COMPARISON: Multiple CLINICAL HISTORY: ascites. Technique: Limited 4 quadrant ultrasound for ascites. FINDINGS: Fluid visualized in all four quadrants of the abdomen, mainly left side. IMPRESSION: Moderate ascites.
--- NOTE | 2022-03-27 15:45 | US ---
Ultrasound-guided paracentesis. DATE OF EXAM: 03/27/2022 CLINICAL HISTORY: Ascites The procedure was discussed with the patient. The risks, complications, benefits, and alternatives we re discussed and any questions were answered. Informed consent was obtained. The patient was placed s upine on the ultrasound table and prepped and draped in the usual sterile fashion. All elements of maximal barrier technique were utilized. Under ultrasound guidance, access into the right lower quadrant was obtained, via the paracentesis catheter system and direct ultrasound guidanc e. Approximately 3.25 liters of straw-colored fluid was removed. The patient was stable throughout the p rocedure and remained stable upon discharge from Department of Radiology. IMPRESSION: Successful paracentesis under ultrasound guidance.
[2022-03-27] MEDS ORDERED: traMADol 50 MG TAB PO PRN (15:58)
[2022-03-27] MEDS ORDERED: MIDODRINE 5 MG TAB PO PRN (15:58)
[2022-03-27] MEDS ORDERED: cloNIDine HCL 0.1 MG TAB PO PRN (15:58)
[2022-03-27] MEDS ORDERED: diazePAM 5 MG TAB PO PRN (15:58)
[2022-03-27 18:19] LABS: Glucose,Whole Blood 201 mg/dL (70-110)
[2022-03-27] MEDS: FUROSEMIDE 80 MG TAB PO SCH (18:29)
[2022-03-27] MEDS: SEVELAMER 800 MG TAB PO SCH (18:29)
[2022-03-27] MEDS: HYDROcodone/APAP 7.5-325MG 1 EACH TAB PO PRN (18:29)
[2022-03-27] MEDS: GABAPENTIN 100 MG CAP PO SCH ×2 (18:30→21:05)
[2022-03-27] MEDS: METOPROLOL TARTRATE 50 MG TAB PO SCH ×2 (18:30→21:05)
[2022-03-27] MEDS: INSULIN ASPART (NovoLOG) 100 UNIT/ML VIAL SQ SCH (18:33)
[2022-03-27] MEDS: CALCIUM CARBONATE 500 MG CHEWABLE PO PRN (20:19)
[2022-03-27 20:30] LABS: Glucose,Whole Blood 186 mg/dL (70-110)
[2022-03-27] MEDS: diazePAM 5 MG TAB PO SCH (21:05)
[2022-03-27] MEDS: MELATONIN 3 MG TABLET PO SCH (21:05)
[2022-03-27] MEDS: PANTOPRAZOLE 40 MG TABLET PO SCH (21:05)
[2022-03-27] MEDS: INSULIN DETEMIR (LEVEMIR) 100 UNIT/ML SYR SQ SCH (21:31)
[2022-03-28] MEDS: ONDANSETRON 4 MG TAB PO PRN ×2 (00:21→09:53)
[2022-03-28] MEDS: CALCIUM CARBONATE 500 MG CHEWABLE PO PRN ×2 (04:16→10:54)
[2022-03-28] MEDS: HYDROcodone/APAP 7.5-325MG 1 EACH TAB PO PRN ×2 (04:19→13:00)
[2022-03-28 07:22] LABS: Glucose,Whole Blood 96 mg/dL (70-110)
[2022-03-28] MEDS: INSULIN ASPART (NovoLOG) 100 UNIT/ML VIAL SQ SCH ×3 (08:16→17:27)
[2022-03-28] MEDS: ASPIRIN 325 MG TAB PO SCH (08:26)
[2022-03-28] MEDS: amLODIPine 5 MG TAB PO SCH (08:26)
[2022-03-28] MEDS: METOPROLOL TARTRATE 50 MG TAB PO SCH ×3 (08:26→20:54)
[2022-03-28] MEDS: GABAPENTIN 100 MG CAP PO SCH ×3 (08:26→20:54)
[2022-03-28] MEDS: SEVELAMER 800 MG TAB PO SCH ×3 (09:24→17:24)
[2022-03-28] MEDS: FUROSEMIDE 80 MG TAB PO SCH ×2 (09:25→15:54)
[2022-03-28 10:38] LABS: Basophils # (A) 0.01 X 10*3/uL (0.00-0.10); Basophils % (A) 0.4 %; Eosinophils # (A) 0.03 X 10*3/uL (0.04-0.35); Eosinophils % (A) 1.1 %; HCT 28.1 % (37.2-46.3); HGB 8.7 g/dL (12.0-15.0); Immature Grans, Automated 0.7 %; Lymphocytes # (A) 0.38 X 10*3/uL (0.90-5.00); Lymphocytes % (A) 13.4 %; MCV 96.9 fL (80.0-97.0); Mean Platelet Volume 10.3 fL (9.5-12.2); Monocytes % (A) 10.6 %; NRBC Per 100 WBC 0 /100 WBCS (0.0-0.0); Neutrophils # (A) 2.09 X 10*3/uL (1.80-7.70); Neutrophils % (A) 73.8 %; Platelet Count 94 X 10*3/uL (140-440); WBC 2.83 X 10*3/uL (4.50-10.00)
[2022-03-28 10:48] LABS: African American GFR (CKD) 7.6 (60.0-200.0); Anion Gap 15.2 mmol/L (10.00-18.00); BUN/Creat Ratio 6.95 Ratio (12.00-20.00); Blood Urea Nitrogen 45.9 mg/dL (9.0-27.0); Calcium 9.3 mg/dL (8.7-10.3); Carbon Dioxide 27.8 mmol/L (20.0-27.5); Non-African American GFR(CKD) 6.5 (60.0-200.0); Potassium 4.7 mmol/L (3.5-5.5)
--- NOTE | 2022-03-28 11:53 | P.NPCON ---
History of Present Illness - Reason for Consult end stage renal disease - History of Present Illness Patient is a 56-year-old female with end-stage renal disease maintained on hemodialysis on a Thursday schedule at that [place] dialysis unit. Patient is admitted to the hospital with complaints of shortness of breath chest discomfort and abdominal distention. Patient has had multiple admissions with fluid overload. She also has recurrent ascites needing paracentesis frequently. No complaints of fever chills nausea vomiting. Next Patient was dialyzed yesterday with 3 L of ultrafiltration. She also had a paracentesis with 3.25 L of fluid removed. Patient is currently seen on dialysis. She is tolerating her treatment well Review of Systems As per HPI Past Medical History Past Medical History: Blood Disorder, Coronary Artery Disease (CAD), Chest Pain / Angina, Heart Failure, COPD, Diabetes Mellitus, Dialysis, Eye Disorder, Hyperlipidemia, Hypertension, Liver Disease, Pneumonia, Renal Disease Additional Past Medical History / Comment(s): IDDM type II, past DKA, L retinal hemorrhages, chronic kidney disease/ESRD with hemodialysis, mineral bone disease, portal htn with hepatosplenomegaly, ascities/paracentesises, fatty liver/cirrhosis, hypertriglyceridemia-induced acute pancreatitis, 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/chronic venous hypertension, 12/2021 covid. History of Any Multi-Drug Resistant Organisms: MRSA Date of last positivie culture/infection: 08-02-20 MDRO Source:: Blood Past Surgical History: Cardiac Valve Replacement, Orthopedic Surgery, Uterine Ablation Additional Past Surgical History / Comment(s): Colonoscopy with polypectomy/biopsy, pancreatic resection at [facility] 2009, bone marrow biopsies X2, dialysis chest port X3 with removals, left arm shunt placement for dialysis and a revision done with shunt, left forearm vein revision, liver biopsy, mitral valve repacement 2019 at [facility],. paracentesis procedures, bilateral cataract removals/lens implants, then laser eye surgery to remove film on lenses, dental surgery. Past Anesthesia/Blood Transfusion Reactions: No Reported Reaction Additional Past Anesthesia/Blood Transfusion Reaction / Comment(s): Pt allergic to Amide type anesthesia/andree type parabins. Pt has received blood transfusions without reaction. Past Psychological History: Anxiety Additional Psychological History / Comment(s): Pt resides at her mother in laws home at this time with spouse. They are her mother in laws caretakers. 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 She is otherwise independent. She occasionally uses her mother in laws rolling walker. Smoking Status: Never smoker Past Alcohol Use History: None Reported Additional Past Alcohol Use History / Comment(s): Patient is a lifelong nonsmoker. Past Drug Use History: None Reported Additional Drug Use History / Comment(s): Pt states, "I rarely drink a wine cooler." - Past Family History Brother(s) Family Medical History: No Reported History Mother Family Medical History: Cancer, Congestive Heart Failure (CHF), Diabetes Mellitus Additional Family Medical History / Comment(s): Throat cancer. Father Family Medical History: Hypertension Additional Family Medical History / Comment(s): Alcoholism. Medications and Allergies Home Medications Medication Instructions Recorded Confirmed Type HYDROcodone/APAP 7.5-325MG [Dixon 1 tab PO TID PRN 11/08/19 03/27/22 History 7.5-325] traMADol HCL [Ultram] 50 mg PO BID PRN 05/13/20 03/27/22 History Omeprazole 20 mg PO HS 08/02/20 03/27/22 History Lidocaine-Prilocaine Cream [Emla 1 applic TOPICAL TUTHSA PRN 06/18/21 03/27/22 History Cream 2.5%/2.5%] Ondansetron [Zofran] 4 mg PO TID PRN 06/18/21 03/27/22 History rOPINIRole HCL [Requip] 1 mg PO BID 06/18/21 03/27/22 History Gabapentin [Neurontin] 100 mg PO TID 07/08/21 03/27/22 History diazePAM [Valium] 5 mg PO HS 08/08/21 03/27/22 History Furosemide [Lasix] 80 mg PO BID 09/26/21 03/27/22 History Aspirin 325 mg PO DAILY 90 Days #90 tab 12/01/21 03/27/22 Rx amLODIPine [Norvasc] 5 mg PO DAILY 30 Days #30 tab 12/01/21 03/27/22 Rx Metoprolol Tartrate [Lopressor] 50 mg PO TID 12/13/21 03/27/22 History Zinc Sulfate [Orazinc] 220 mg PO DAILY 10 Days #10 cap 12/17/21 03/27/22 Rx Calcium Carbonate [Tums] 500 mg PO TID PRN 01/29/22 03/27/22 History Melatonin 12 mg PO HS 01/29/22 03/27/22 History Midodrine HCl [ProAmatine] 10 mg PO DAILY PRN 01/29/22 03/27/22 History Westgate-3 Fatty Acids/Fish Oil 1 cap PO DAILY 01/29/22 03/27/22 History [Westgate-3 Fish Oil 1,200 mg Sfgl] Sevelamer [Renvela] 3,200 mg PO TID-W/MEALS 01/29/22 03/27/22 History Sevelamer [Renvela] 800 - 1,600 mg PO DAILY PRN 01/29/22 03/27/22 History diazePAM [Valium] 5 mg PO DAILY PRN 01/29/22 03/27/22 History INSULIN ASPART (NovoLOG) [NovoLOG 15 unit SQ TID-W/MEALS 03/27/22 03/27/22 History (formulary)] Insulin Glargine,Hum.rec.anlog 45 units SQ HS 03/27/22 03/27/22 History [Lantus Solostar Pen] cloNIDine HCL [Catapres] 0.1 mg PO BID PRN 03/27/22 03/27/22 History Allergies Allergy/AdvReac Type Severity Reaction Status Date / Time hydromorphone [From Dilaudid] Allergy Swelling Verified 03/27/22 11:05 Anesthetics - Amide Type - AdvReac cardiac Verified 03/27/22 11:05 Select A arrest Anesthetics - Andree Type- AdvReac cardiac Verified 03/27/22 11:05 Parabens arrest ciprofloxacin [From Cipro] AdvReac AFFECTED Verified 03/27/22 11:05 EYESIGHT ciprofloxacin HCl AdvReac AFFECTED Verified 03/27/22 11:05 [From Cipro] EYESIGHT Iodinated Contrast Media AdvReac RENAL Verified 03/27/22 11:05 FAILURE Physical Exam Vitals: Vital Signs Temp Pulse Pulse Pulse Resp BP BP 03/28/22 08:00 97.8 F 59 L 16 167/74 03/28/22 02:00 97.7 F 53 L 16 148/79 03/27/22 20:00 98.3 F 64 16 167/76 03/27/22 19:45 64 16 03/27/22 19:02 97.6 F 60 18 148/72 03/27/22 18:00 18 148/72 03/27/22 16:00 52 L 20 164/78 03/27/22 15:30 60 18 165/82 03/27/22 15:15 53 L 18 159/86 03/27/22 14:32 57 L 15 163/78 03/27/22 14:10 59 L 16 160/89 03/27/22 13:10 67 20 156/80 03/27/22 12:40 70 20 125/95 03/27/22 12:10 55 L 20 162/83 Pulse Ox 03/28/22 08:00 99 03/28/22 02:00 93 L 03/27/22 20:00 100 03/27/22 19:45 03/27/22 19:02 03/27/22 18:00 98 03/27/22 16:00 96 03/27/22 15:30 97 03/27/22 15:15 97 03/27/22 14:32 03/27/22 14:10 03/27/22 13:10 100 03/27/22 12:40 99 03/27/22 12:10 100 Intake and Output 03/27/22 03/28/22 03/28/22 22:59 06:59 14:59 Intake Total 120 236 Output Total 3000 Balance -3000 120 236 Intake: Oral 120 236 Output: Hemodialysis 3000 Other: Voiding Method Toilet Weight 85.688 kg Patient is awake, comfortable, no acute distress Her face is puffy Examination of the lungs bilateral breath sounds are heard with decreased breath sounds at the bases Abdomen is soft nontender, ascites noted Examination of the lower extremities shows edema 3+ bilaterally Results - Lab Results Most recent lab results Calcium 9.3 mg/dL (8.7-10.3) 03/28/22 04:34 Magnesium 2.0 mg/dL (1.6-2.3) 03/27/22 08:11 03/28/22 04:34 03/28/22 04:34 Assessment and Plan Assessment: 1. End-stage renal disease on hemodialysis on a Thursday schedule 2. Volume overload 3. Recurrent ascites needing paracentesis frequently 4. CK D mineral bone disorder 5. Chronic liver disease with portal hypertension Plan: Hemodialysis today with goal UF of about 3-4 L as tolerated. Patient can be discharged postdialysis today in follow-up tomorrow as outpatient at her home clinic for hemodialysis.
[2022-03-28 12:46] LABS: Glucose,Whole Blood 145 mg/dL (70-110)
[2022-03-28 17:05] LABS: Glucose,Whole Blood 161 mg/dL (70-110)
[2022-03-28 20:16] LABS: Glucose,Whole Blood 101 mg/dL (70-110)
[2022-03-28] MEDS: PANTOPRAZOLE 40 MG TABLET PO SCH (20:54)
[2022-03-28] MEDS: INSULIN DETEMIR (LEVEMIR) 100 UNIT/ML SYR SQ SCH (20:54)
[2022-03-28] MEDS: diazePAM 5 MG TAB PO SCH (20:54)
[2022-03-28] MEDS: SILDENAFIL 20 MG TAB PO SCH (20:54)
[2022-03-28] MEDS: MELATONIN 3 MG TABLET PO SCH (21:13)
--- NOTE | 2022-03-28 21:35 | HP ---
HISTORY AND PHYSICAL HISTORY OF PRESENT ILLNESS: A 56-year-old white female admitted with renal disease, on hemodialysis, came in with severe swelling in her lower legs and abdomen. She is admitted for paracentesis and for 2-day dialysis per Dr. Orozco, etl bi developer. She has fluid overload with infected lower legs. PAST MEDICAL HISTORY: Cirrhosis, autoimmune; diabetes mellitus; COPD; end-stage renal disease; hypertension; liver disease; pneumonia; renal disease; type 2 diabetic; retinal hemorrhages; chronic kidney disease; hepatosplenomegaly; recurrent paracentesis; pulmonary hypertension; Hoffman's palsy. MEDICATIONS: As above. FAMILY HISTORY: Mother, CHF, diabetes mellitus. Medicines were all reviewed. PHYSICAL EXAMINATION: VITAL SIGNS: Temperature 97.8, pulse 50s to 60s, respiratory rate 16-18, blood pressure is 150s to 160s. CARDIOVASCULAR: S1, S2. LUNGS: Clear. GI: Soft. HEMATOLOGIC: Negative for Homans. EXTREMITIES: Large puffy extremities, 2 to 3+ edema. ABDOMEN: Cirrhosis, like a 7-month gravid abdomen. INTEGUMENT: Some redness and superficial abrasions to the lower legs Labs are reviewed. ASSESSMENT AND PLAN: Volume overload, recurrent ascites requiring paracentesis; chronic kidney disease; bone disease; end-stage renal disease; chronic liver disease; pulmonary hypertension. Prognosis is guarded. Continue current treatments. Paracentesis, dialysis 2 days in a row per Dr. Orozco's recommendations and then discharge. PROGNOSIS: Guarded. MMODL / IJN: [id number] /
[2022-03-29] MEDS: SEVELAMER 800 MG TAB PO SCH ×2 (06:17→13:49)
[2022-03-29 06:53] LABS: Glucose,Whole Blood 68 mg/dL (70-110)
[2022-03-29 07:09] LABS: Glucose,Whole Blood 87 mg/dL (70-110)
[2022-03-29 07:29] VITALS: BP 183/83; PULSE 69; RESP 18; TEMP 97.6
[2022-03-29 07:29] LABS: Glucose,Whole Blood 83 mg/dL (70-110)
--- NOTE | 2022-03-29 08:28 | PN ---
PROGRESS NOTE SUBJECTIVE: A 56-year-old white female came in with fluid overload, ascites, fluid 3 L were tapped off with paracentesis, second day of dialysis today. We are going to see how she does. Currently, white count is 2.83, hemoglobin 8.7, platelets 94, carbon dioxide 27, BUN is 45, creatinine 6.6. Sugars in the mid 100s. ASSESSMENT: Congestive heart failure with fluid overload, end-stage renal disease, chronic liver disease with fluid overload. I am going to order echo to check for possible heart failure and pulmonary hypertension. Please see further orders. Possibly discharge home soon. Please check echo. Prognosis guarded. MMODL / IJN: [id number] /
[2022-03-29] MEDS: INSULIN ASPART (NovoLOG) 100 UNIT/ML VIAL SQ SCH ×2 (09:10→13:49)
[2022-03-29] MEDS: ASPIRIN 325 MG TAB PO SCH (09:11)
[2022-03-29] MEDS: METOPROLOL TARTRATE 50 MG TAB PO SCH (09:11)
[2022-03-29] MEDS: FUROSEMIDE 80 MG TAB PO SCH (09:11)
[2022-03-29] MEDS: SILDENAFIL 20 MG TAB PO SCH (09:11)
[2022-03-29] MEDS: GABAPENTIN 100 MG CAP PO SCH (09:11)
[2022-03-29] MEDS: amLODIPine 5 MG TAB PO SCH (09:12)
--- NOTE | 2022-03-29 09:24 | P.PN ---
Subjective Patient is seen in follow-up for end-stage renal disease. Had extra treatment of hemodialysis today. Also underwent paracentesis at 3.25 L drained. Feels better today. No active complaints. Vital signs are stable. General: Awake. No acute distress. HEENT: Head exam is unremarkable. LUNGS: Breath sounds decreased. HEART: Rate and Rhythm are regular. ABDOMEN: Soft, mild distention. EXTREMITITES: 2+ edema. Objective - Vital Signs Vital signs: Vital Signs Temp 97.6 F 03/29/22 07:28 Pulse 69 03/29/22 07:28 Resp 18 03/29/22 07:28 BP 183/83 03/29/22 07:28 Pulse Ox 100 03/29/22 07:28 FiO2 Intake & Output 03/28/22 03/29/22 03/29/22 18:59 06:59 18:59 Intake Total 954 Output Total 3500 Balance -2546 Weight 85.5 kg Intake: Oral 654 Hemodialysis 300 Output: Hemodialysis 3500 Other: Voiding Method Toilet Toilet # Voids 3 2 - Labs CBC & Chem 7: 03/28/22 04:34 03/28/22 04:34 Labs: Abnormal Lab Results - Last 24 Hours (Table) 03/28/22 03/28/22 03/28/22 Range/Units 04:34 04:34 12:45 WBC 2.83 L (4.50-10.00) X 10*3/uL RBC 2.90 L (4.10-5.20) X 10*6/uL Hgb 8.7 L (12.0-15.0) g/dL Hct 28.1 L (37.2-46.3) % MCHC 31.0 L (32.0-37.0) g/dL RDW 16.0 H (11.5-14.5) % Plt Count 94 L (140-440) X 10*3/uL Lymphocytes # 0.38 L (0.90-5.00) X 10*3/uL Eosinophils # 0.03 L (0.04-0.35) X 10*3/uL Chloride 94 L (96-109) mmol/L Carbon Dioxide 27.8 H (20.0-27.5) mmol/L BUN 45.9 H (9.0-27.0) mg/dL Creatinine 6.6 H (0.6-1.5) mg/dL Est GFR (CKD-EPI)AfAm 7.6 L (60.0-200.0) Est GFR (CKD-EPI)NonAf 6.5 L (60.0-200.0) BUN/Creatinine Ratio 6.95 L (12.00-20.00) Ratio Glucose 126 H (70-110) mg/dL POC Glucose (mg/dL) 145 H (70-110) mg/dL 03/28/22 03/29/22 Range/Units 17:02 06:52 WBC (4.50-10.00) X 10*3/uL RBC (4.10-5.20) X 10*6/uL Hgb (12.0-15.0) g/dL Hct (37.2-46.3) % MCHC (32.0-37.0) g/dL RDW (11.5-14.5) % Plt Count (140-440) X 10*3/uL Lymphocytes # (0.90-5.00) X 10*3/uL Eosinophils # (0.04-0.35) X 10*3/uL Chloride (96-109) mmol/L Carbon Dioxide (20.0-27.5) mmol/L BUN (9.0-27.0) mg/dL Creatinine (0.6-1.5) mg/dL Est GFR (CKD-EPI)AfAm (60.0-200.0) Est GFR (CKD-EPI)NonAf (60.0-200.0) BUN/Creatinine Ratio (12.00-20.00) Ratio Glucose (70-110) mg/dL POC Glucose (mg/dL) 161 H 68 L (70-110) mg/dL Assessment and Plan Plan: Assessment: 1. End-stage renal disease maintained on hemodialysis on Thursday schedule. 2. Volume overload. Improved with extra UF and paracentesis. 3. Recurrent ascites status post paracentesis this admission to 3.25 L drained. 4. Hypertension with chronic kidney disease. 5. Chronic kidney disease mineral bone disease maintained on Renvela. 6. Diabetes mellitus. 7. Acute on chronic diastolic CHF with moderate to severe tricuspid regurgitation and pulmonary hypertension. Plan: Hemodialysis today. Advised to maintain low salt diet and 40 ounce fluid restriction per day upon discharge. Maintain diuretics. Possible discharge after dialysis today.
[2022-03-29 10:48] LABS: African American GFR (CKD) 8.4 (60.0-200.0); Albumin 4.3 g/dL (3.8-4.9); Albumin/Globulin Ratio 1.91 (1.60-3.17); Anion Gap 13.5 mmol/L (10.00-18.00); BUN/Creat Ratio 6.98 Ratio (12.00-20.00); Blood Urea Nitrogen 42.1 mg/dL (9.0-27.0); Calcium 9.5 mg/dL (8.7-10.3); Carbon Dioxide 27.5 mmol/L (20.0-27.5); Globulin 2.3 g/dL (1.6-3.3); Non-African American GFR(CKD) 7.3 (60.0-200.0); Potassium 5.3 mmol/L (3.5-5.5); Total Bilirubin 0.5 mg/dL (0.30-1.20); Total Protein 6.6 g/dL (6.2-8.2)
[2022-03-29 11:54] LABS: Glucose,Whole Blood 185 mg/dL (70-110)
[2022-03-29 13:23] LABS: Basophils # (A) 0.04 X 10*3/uL (0.00-0.10); Basophils % (A) 0.9 %; Eosinophils # (A) 0.05 X 10*3/uL (0.04-0.35); Eosinophils % (A) 1.1 %; HCT 32.2 % (37.2-46.3); HGB 9.7 g/dL (12.0-15.0); Immature Grans, Automated 0.7 %; Lymphocytes # (A) 0.82 X 10*3/uL (0.90-5.00); Lymphocytes % (A) 18.8 %; MCH 28.8 pg (27.0-32.0); MCHC 30.1 g/dL (32.0-37.0); MCV 95.5 fL (80.0-97.0); Mean Platelet Volume 10.5 fL (9.5-12.2); Monocytes # (A) 0.46 X 10*3/uL (0.20-1.00); Monocytes % (A) 10.6 %; NRBC Per 100 WBC 0 /100 WBCS (0.0-0.0); Neutrophils # (A) 2.96 X 10*3/uL (1.80-7.70); Neutrophils % (A) 67.9 %; Platelet Count 146 X 10*3/uL (140-440); RBC 3.37 X 10*6/uL (4.10-5.20); RDW 15.8 % (11.5-14.5); WBC 4.36 X 10*3/uL (4.50-10.00)
--- NOTE | 2022-03-29 14:11 | CA ---
Transthoracic Echo Report Name: Sara Desouza Age: 56 Gender: F : 1965 Exam Date: 03/28/2022 13:38 Exam Location: [place] [facility] Ht (in): 63 Wt (lb): 188 Ordering Physician: David Bragg MD Attending/Referring Phys: Ancelmo Hilliard DO Manufactured Buildings Repairer Lupis Chávez RDCS Procedure CPT: Indications: chf Cardiac Hx: Technical Quality: Good Contrast 1: N/A Total Dose (mL): Contrast 2: Total Dose (mL): MEASUREMENTS (Male / Female) Normal Values 2D ECHO LV Diastolic Diameter PLAX 3.2 cm 4.2 - 5.9 / 3.9 - 5.3 cm LV Systolic Diameter PLAX 3.1 cm IVS Diastolic Thickness 1.5 cm 0.6 - 1.0 / 0.6 - 0.9 cm LVPW Diastolic Thickness 1.9 cm 0.6 - 1.0 / 0.6 - 0.9 cm LV Relative Wall Thickness 1.0 RV Internal Dim ED PLAX 3.1 cm LA Systolic Diameter LX 4.7 cm 3.0 - 4.0 / 2.7 - 3.8 cm LA Volume 58.1 cm??? 18 - 58 / 22 - 52 cm??? M-MODE Aortic Root Diameter MM 2.8 cm LA Systolic Diameter MM 4.4 cm LA Ao Ratio MM 1.6 MV E Point Septal Separation 1.6 cm DOPPLER AV Peak Velocity 187.3 cm/s AV Peak Gradient 14.0 mmHg AV Mean Velocity 125.2 cm/s AV Mean Gradient 7.1 mmHg AV Velocity Time Integral 42.4 cm LVOT Peak Velocity 117.0 cm/s LVOT Peak Gradient 5.5 mmHg MV Peak Velocity 188.0 cm/s MV Peak Gradient 14.1 mmHg MV Mean Velocity 82.7 cm/s MV Mean Gradient 3.8 mmHg MV Velocity Time Integral 51.3 cm MV Area PHT 1.9 cm??? Mitral E Point Velocity 144.9 cm/s Mitral A Point Velocity 87.9 cm/s Mitral E to A Ratio 1.6 MV Deceleration Time 357.6 ms MV E' Velocity 2.9 cm/s Mitral E to MV E' Ratio 50.5 TR Peak Velocity 327.9 cm/s TR Peak Gradient 49.4 mmHg Right Ventricular Systolic Press 46.8 mmHg PV Peak Velocity 75.2 cm/s PV Peak Gradient 2.3 mmHg PV Mean Velocity 50.2 cm/s PV Mean Gradient 1.2 mmHg PV Velocity Time Integral 21.5 cm FINDINGS Left Ventricle Moderately increased septal wall thickness. Mildly increased left ventricular wall thickness. Right Ventricle Normal right ventricular size and function. Moderate pulmonary hypertension. Right Atrium Normal right atrial size. Left Atrium Moderately increased left atrial diameter. Mildly increased left atrial volume. Mitral Valve Mechanical prosthetic mitral valve. Prosthetic mitral valve regurgitation. MV Peak Gradient 14.1mmHg and MV mean gradient 5.5mmHg. Aortic Valve Mild aortic stenosis with a peak gradient of 14 mmHg and a mean gradient of 7 mmHg. Trace aortic regurgitation. Tricuspid Valve Structurally normal tricuspid valve. Moderate tricuspid regurgitation. Pulmonic Valve Structurally normal pulmonic valve. Pericardium Normal pericardium. Aorta Normal size aortic root and proximal ascending aorta. CONCLUSIONS Left ventricular hypertrophy with preserved LV function with an ejection fraction of 55-60% Left atrial enlargement Moderate pulmonary hypertension moderate tricuspid regurgitation Mechanical valve in mitral position with mild regurgitation peak gradient of 14 mm and a mean gradient of 5 mm across the valve Mild aortic stenosis Previewed by: Dr. Ricardo Guaman MD (Electronically Signed) Final Date: 29 March 2022 14:10
== END 2022-03-29 14:15 | disposition home or self-care (01) | DRG 291 ==
LOC: EC 07:29 → 4SSUR 09:59 → 6NMEDSUR 03-28 06:28
PROVIDERS: ADMIT Family Medicine; ATTEND Family Medicine
PROC: 0W9G30Z Drainage of Peritoneal Cavity with Drainage Device, Percutaneous Approach (ICD-10-PCS; 2022-03-27)
PROC: 5A1D70Z Performance of Urinary Filtration, Intermittent, Less than 6 Hours Per Day (ICD-10-PCS; principal; 2022-03-28)
DX: I13.2 Hypertensive heart and chronic kidney disease with heart failure and with stage 5 chronic kidney disease, or end stage renal disease (principal); I50.33 Acute on chronic diastolic (congestive) heart failure; N18.6 End stage renal disease; R18.8 Other ascites; K76.6 Portal hypertension; E11.22 Type 2 diabetes mellitus with diabetic chronic kidney disease; J44.9 Chronic obstructive pulmonary disease, unspecified; I27.20 Pulmonary hypertension, unspecified; K74.60 Unspecified cirrhosis of liver; Z99.2 Dependence on renal dialysis; Z79.4 Long term (current) use of insulin; I25.10 Atherosclerotic heart disease of native coronary artery without angina pectoris; D64.9 Anemia, unspecified; E78.5 Hyperlipidemia, unspecified; E83.9 Disorder of mineral metabolism, unspecified; I87.309 Chronic venous hypertension (idiopathic) without complications of unspecified lower extremity; E88.9 Metabolic disorder, unspecified; D89.89 Other specified disorders involving the immune mechanism, not elsewhere classified; G25.81 Restless legs syndrome; G47.00 Insomnia, unspecified; I08.2 Rheumatic disorders of both aortic and tricuspid valves; M54.50 Low back pain, unspecified; F41.9 Anxiety disorder, unspecified; Z95.2 Presence of prosthetic heart valve; Z98.42 Cataract extraction status, left eye; Z98.41 Cataract extraction status, right eye; Z88.5 Allergy status to narcotic agent; Z88.4 Allergy status to anesthetic agent; Z88.1 Allergy status to other antibiotic agents; Z91.041 Radiographic dye allergy status; Z79.899 Other long term (current) drug therapy; Z79.82 Long term (current) use of aspirin; Z87.440 Personal history of urinary (tract) infections; Z86.14 Personal history of Methicillin resistant Staphylococcus aureus infection; Z86.19 Personal history of other infectious and parasitic diseases; Z81.1 Family history of alcohol abuse and dependence; Z88.8 Allergy status to other drugs, medicaments and biological substances; E78.1 Pure hyperglyceridemia; K76.0 Fatty (change of) liver, not elsewhere classified; Z96.1 Presence of intraocular lens; M89.8X9 Other specified disorders of bone, unspecified site
CPT/HCPCS: 36415; 49083; 71046; 76705; 80048; 80053; 82140; 83735; 83880; 84484; 85025; 85610; 85730; 90935; 93005; 93306

== ENCOUNTER 2022-04-05 07:18 | Inpatient (IN) | payer MEDICARE, OTHER ==
[2022-04-05] MEDS ORDERED: CALCIUM GLUCONATE IN NACL 1 GM in SALINE 1 100ML.BAG IVPB ONE (07:43)
[2022-04-05] MEDS ORDERED: SODIUM BICARB 8.4% 50 ML SYR (1 MEQ/ML) IV STA (07:43)
[2022-04-05] MEDS ORDERED: CALCIUM CHLORIDE 100 MG/ML 10 ML SYRINGE IVP STA (07:53)
[2022-04-05] MEDS ORDERED: INSULIN REGULAR 100 UNIT/ML VIAL (IV) IV ONE (07:53)
[2022-04-05] MEDS ORDERED: DEXTROSE 50% SYRINGE 50 ML IVP STA (07:54)
[2022-04-05] MEDS: ATROPINE SULFATE 0.1 MG/ML 10ML SYRINGE IV STA ×2 (07:56→08:07)
[2022-04-05 07:59] LABS: Basophils % (A) 1 %; Eosinophils # (A) 0.1 k/uL (0-0.7); Eosinophils % (A) 1 %; HCT 31.8 % (34.0-46.0); Hypochromasia Moderate; Lymphocytes % (A) 16 %; MCH 29.8 pg (25.0-35.0); MCHC 31.4 g/dL (31.0-37.0); MCV 94.9 fL (80.0-100.0); Mean Platelet Volume 9.1; Monocytes # (A) 0.3 k/uL (0-1.0); Monocytes % (A) 4 %; Neutrophils # (A) 4.6 k/uL (1.3-7.7); Neutrophils % (A) 76 %; RBC 3.35 m/uL (3.80-5.40); RDW 15.6 % (11.5-15.5); WBC 6.1 k/uL (3.8-10.6)
[2022-04-05 08:00] LABS: Platelet Count 130 k/uL (150-450)
[2022-04-05] MEDS ORDERED: ALBUTEROL NEBULIZED (CONC) 10 MG, SODIUM CHLORIDE 0.9% NEBULIZ 3 ML INHALATION STA ×2 (08:04)
[2022-04-05 08:10] LABS: Albumin 4.3 g/dL (3.5-5.0); Calcium 8.7 mg/dL (8.4-10.2); Magnesium 2.2 mg/dL (1.6-2.3); Partial Thromboplastin Time 23.2 sec (22.0-30.0); Prothrombin Time 11.3 sec (9.0-12.0); Total Bilirubin 0.6 mg/dL (0.2-1.3); Total Protein 6.5 g/dL (6.3-8.2)
[2022-04-05] MEDS ORDERED: ALBUTEROL NEB (CONC) 2.5 MG/0.5 ML INHALATION ONE (08:12)
[2022-04-05] MEDS ORDERED: SODIUM ZIRCONIUM CYCLOSILICATE 10 GM PACKET PO ONE (08:13)
[2022-04-05] MEDS ORDERED: FUROSEMIDE 10 MG/ML 4 ML VIAL IV STA (08:13)
[2022-04-05 08:14] LABS: Glucose,Whole Blood 303 mg/dL (70-110)
--- NOTE | 2022-04-05 08:17 | ED ---
General Adult HPI - General Chief complaint: Weakness Stated complaint: weakness, dizziness, chest pain Time Seen by Provider: 04/05/22 07:22 Source: patient, EMS Mode of arrival: EMS - History of Present Illness Initial comments: Dictation was produced using [employer] dictation software. please excuse any grammatical, word or spelling errors. Chief Complaint: 56-year-old female presents to the emergency department for generalized weakness. History of Present Illness: 56-year-old female she has multiple comorbidities. Patient has history of end-stage renal disease. She states that she has baseline history of bradycardia and hypotension. Since the last 3 days she's been feeling worsening weakness. This morning she woke up and felt so weak that she wasn't able to perform her activities of daily living or go to dialysis. Patient is brought in by EMS. Patient has any fever, chills or night sweats. Denies any pain complaints. No obvious sick contacts. Patient normally gets dialysis Thursday however during the holiday weekend she was converted to Thursday. Patient did get dialysis on Thursday and Thursday. The ROS documented in this emergency department record has been reviewed and confirmed by me. Those systems with pertinent positive or negative responses have been documented in the HPI. All other systems are other negative and/or noncontributory. PHYSICAL EXAM: General Impression: Alert and oriented x3, lethargic HEENT: Normocephalic atraumatic, extra-ocular movements intact, pupils equal and reactive to light bilaterally, dry mucous membranes Cardiovascular: Heart regular rate and rhythm Chest: Able to complete full sentences, no retractions, no tachypnea Abdomen: abdomen soft, non-tender, non-distended, no organomegaly Musculoskeletal: Pulses present and equal in all extremities, no peripheral edema Motor: no focal deficits noted Neurological: CN II-XII grossly intact, no focal motor or sensory deficits noted Skin: Pale and gutierrez Medical Course: 56-year-old male presents emergency department for a chief complaint of generalized weakness patient arrives via EMS. Vital signs upon arrival shows heart rate of 45, rest of vital signs within acceptable limits. Patient reports that she normally has bradycardia that normally is in the 40s and 50s. EKG was performed showing that her heart rate would dip down to the 30s. She is moved to resuscitation bay number T1. IV access obtained in the right upper extremity. EKG showed widened QRS with worsening bradycardia suspicious for hyperkalemia. Patient given hyperkalemia cocktail with stable bili of heart rates that maintain on average above 35. Laboratory evaluation obtained. CBC within acceptable limits. Coag panel was within acceptable limits. Metabolic panel shows potassium of 8.0. Rest metabolic panel is within patient's acceptable limits. Stat page was made to nephrology. Spoke with communications equipment operator, Dr. Jonas at 8:18 AM and he will arrange for stat dialysis. Dr. Jonas did evaluate the patient at bedside. Dialysis initiated in the emergency department. Patient be admitted for further care. Spoke with Dr. Mora who is covering Dr. Bragg. Chart review was performed My EKG interpretation: Ventricular rate 30, A. fib with slow response. QS 171, QTc 432. EKG initially very suspicious for hyperkalemia when compared to old EKGs. Patient given hyperkalemia cocktail and repeat EKG shows sinus bra dycardia arrhythmia. Critical Care: Yes Critical Care time: 33 minutes - Related Data Home Medications Medication Instructions Recorded Confirmed HYDROcodone/APAP 7.5-325MG [[place] 1 tab PO TID PRN 11/08/19 03/27/22 7.5-325] traMADol HCL [Ultram] 50 mg PO BID PRN 05/13/20 03/27/22 Omeprazole 20 mg PO HS 08/02/20 03/27/22 Lidocaine-Prilocaine Cream [Emla 1 applic TOPICAL TUTHSA PRN 06/18/21 03/27/22 Cream 2.5%/2.5%] Ondansetron [Zofran] 4 mg PO TID PRN 06/18/21 03/27/22 rOPINIRole HCL [Requip] 1 mg PO BID 06/18/21 03/27/22 Gabapentin [Neurontin] 100 mg PO TID 07/08/21 03/27/22 diazePAM [Valium] 5 mg PO HS 08/08/21 03/27/22 Furosemide [Lasix] 80 mg PO BID 09/26/21 03/27/22 Metoprolol Tartrate [Lopressor] 50 mg PO TID 12/13/21 03/27/22 Calcium Carbonate [Tums] 500 mg PO TID PRN 01/29/22 03/27/22 Melatonin 12 mg PO HS 01/29/22 03/27/22 Midodrine HCl [ProAmatine] 10 mg PO DAILY PRN 01/29/22 03/27/22 Sevelamer [Renvela] 3,200 mg PO TID-W/MEALS 01/29/22 03/27/22 Sevelamer [Renvela] 800 - 1,600 mg PO DAILY PRN 01/29/22 03/27/22 diazePAM [Valium] 5 mg PO DAILY PRN 01/29/22 03/27/22 INSULIN ASPART (NovoLOG) [NovoLOG 15 unit SQ TID-W/MEALS 03/27/22 03/27/22 (formulary)] Insulin Glargine,Hum.rec.anlog 45 units SQ HS 03/27/22 03/27/22 [Lantus Solostar Pen] cloNIDine HCL [Catapres] 0.1 mg PO BID PRN 03/27/22 03/27/22 Previous Rx's Medication Instructions Recorded Aspirin 325 mg PO DAILY 90 Days #90 tab 12/01/21 amLODIPine [Norvasc] 5 mg PO DAILY 30 Days #30 tab 12/01/21 Sildenafil [Revatio] 20 mg PO TID tab 03/28/22 Allergies Allergy/AdvReac Type Severity Reaction Status Date / Time hydromorphone [From Dilaudid] Allergy Swelling Verified 04/05/22 07:35 Anesthetics - Amide Type - AdvReac cardiac Verified 04/05/22 07:35 Select A arrest Anesthetics - Andree Type- AdvReac cardiac Verified 04/05/22 07:35 Parabens arrest ciprofloxacin [From Cipro] AdvReac AFFECTED Verified 04/05/22 07:35 EYESIGHT ciprofloxacin HCl AdvReac AFFECTED Verified 04/05/22 07:35 [From Cipro] EYESIGHT Iodinated Contrast Media AdvReac RENAL Verified 04/05/22 07:35 FAILURE Review of Systems ROS Statement: Those systems with pertinent positive or pertinent negative responses have been documented in the HPI. ROS Other: All systems not noted in ROS Statement are negative. 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 History of Any Multi-Drug Resistant Organisms: MRSA Date of last positivie culture/infection: 08-02-20 MDRO Source:: Blood Past Surgical History: Cardiac Valve Replacement, Orthopedic Surgery, Uterine Ablation Additional Past Surgical History / Comment(s): Colonoscopy with polypectomy/biopsy, pancreatic resection at [facility] 2009, bone marrow biopsies X2, dialysis chest port X3 with removals, left arm shunt placement for dialysis and a revision done with shunt, left forearm vein revision, liver biopsy, mitral valve repacement 2019 at of ,. paracentesis procedures, bilateral cataract removals/lens implants, then laser eye surgery to remove film on lenses, dental surgery. Past Anesthesia/Blood Transfusion Reactions: No Reported Reaction Additional Past Anesthesia/Blood Transfusion Reaction / Comment(s): Pt allergic to Amide type anesthesia/andree type parabins. Pt has received blood transfusions without reaction. Past Psychological History: Anxiety Smoking Status: Never smoker Past Alcohol Use History: None Reported Past Drug Use History: None Reported - Past Family History Brother(s) Family Medical History: No Reported History Mother Family Medical History: Cancer, Congestive Heart Failure (CHF), Diabetes Mellitus Additional Family Medical History / Comment(s): Throat cancer. Father Family Medical History: Hypertension Additional Family Medical History / Comment(s): Alcoholism. Course Vital Signs 04/05/22 04/05/22 04/05/22 07:31 08:09 08:19 Temperature 97.4 F L Pulse Rate 45 L 36 L 44 L Respiratory 18 Rate Blood Pressure 165/78 O2 Sat by Pulse 98 Oximetry 04/05/22 04/05/22 04/05/22 08:29 08:32 08:33 Temperature Pulse Rate 46 L 44 L 46 L Respiratory 20 Rate Blood Pressure 138/68 O2 Sat by Pulse 100 Oximetry 04/05/22 04/05/22 08:40 08:49 Temperature Pulse Rate 49 L 45 L Respiratory Rate Blood Pressure O2 Sat by Pulse Oximetry Medical Decision Making - Lab Data Result diagrams: 04/05/22 07:55 04/05/22 07:55 Lab Results 04/05/22 04/05/22 04/05/22 Range/Units 07:55 07:55 07:55 WBC 6.1 (3.8-10.6) k/uL RBC 3.35 L (3.80-5.40) m/uL Hgb 10.0 L (11.4-16.0) gm/dL Hct 31.8 L (34.0-46.0) % MCV 94.9 (80.0-100.0) fL MCH 29.8 (25.0-35.0) pg MCHC 31.4 (31.0-37.0) g/dL RDW 15.6 H (11.5-15.5) % Plt Count 130 L D (150-450) k/uL MPV 9.1 Neutrophils % 76 % Lymphocytes % 16 % Monocytes % 4 % Eosinophils % 1 % Basophils % 1 % Neutrophils # 4.6 (1.3-7.7) k/uL Lymphocytes # 1.0 (1.0-4.8) k/uL Monocytes # 0.3 (0-1.0) k/uL Eosinophils # 0.1 (0-0.7) k/uL Basophils # 0.0 (0-0.2) k/uL Hypochromasia Moderate PT 11.3 (9.0-12.0) sec INR 1.0 (<1.2) APTT 23.2 (22.0-30.0) sec Sodium 133 L (137-145) mmol/L Potassium 8.0 H* (3.5-5.1) mmol/L Chloride 95 L (98-107) mmol/L Carbon Dioxide 20 L (22-30) mmol/L Anion Gap 18 mmol/L BUN 81 H (7-17) mg/dL Creatinine 9.09 H* (0.52-1.04) mg/dL Est GFR (CKD-EPI)AfAm 5 (>60 ml/min/1.73 sqM) Est GFR (CKD-EPI)NonAf 4 (>60 ml/min/1.73 sqM) Glucose 194 H (74-99) mg/dL POC Glucose (mg/dL) (70-110) mg/dL POC Glu Property Accountant ID Calcium 8.7 (8.4-10.2) mg/dL Magnesium 2.2 (1.6-2.3) mg/dL Total Bilirubin 0.6 (0.2-1.3) mg/dL AST 17 (14-36) U/L ALT 15 (4-34) U/L Alkaline Phosphatase 105 (38-126) U/L Troponin I (0.000-0.034) ng/mL Total Protein 6.5 (6.3-8.2) g/dL Albumin 4.3 (3.5-5.0) g/dL TSH 4.710 H (0.465-4.680) mIU/L 04/05/22 04/05/22 Range/Units 07:55 08:01 WBC (3.8-10.6) k/uL RBC (3.80-5.40) m/uL Hgb (11.4-16.0) gm/dL Hct (34.0-46.0) % MCV (80.0-100.0) fL MCH (25.0-35.0) pg MCHC (31.0-37.0) g/dL RDW (11.5-15.5) % Plt Count (150-450) k/uL MPV Neutrophils % % Lymphocytes % % Monocytes % % Eosinophils % % Basophils % % Neutrophils # (1.3-7.7) k/uL Lymphocytes # (1.0-4.8) k/uL Monocytes # (0-1.0) k/uL Eosinophils # (0-0.7) k/uL Basophils # (0-0.2) k/uL Hypochromasia PT (9.0-12.0) sec INR (<1.2) APTT (22.0-30.0) sec Sodium (137-145) mmol/L Potassium (3.5-5.1) mmol/L Chloride (98-107) mmol/L Carbon Dioxide (22-30) mmol/L Anion Gap mmol/L BUN (7-17) mg/dL Creatinine (0.52-1.04) mg/dL Est GFR (CKD-EPI)AfAm (>60 ml/min/1.73 sqM) Est GFR (CKD-EPI)NonAf (>60 ml/min/1.73 sqM) Glucose (74-99) mg/dL POC Glucose (mg/dL) 303 H (70-110) mg/dL POC Glu Property Accountant ID Ancelmo [place] Calcium (8.4-10.2) mg/dL Magnesium (1.6-2.3) mg/dL Total Bilirubin (0.2-1.3) mg/dL AST (14-36) U/L ALT (4-34) U/L Alkaline Phosphatase (38-126) U/L Troponin I 0.014 (0.000-0.034) ng/mL Total Protein (6.3-8.2) g/dL Albumin (3.5-5.0) g/dL TSH (0.465-4.680) mIU/L Disposition Clinical Impression: Hyperkalemia Disposition: ADMITTED IP TO THIS [facility] Condition: Serious Referrals: David Bragg MD [Primary Care Provider] - 1-2 days Decision Time: 09:19
[2022-04-05] MEDS ORDERED: NALOXONE 0.4 MG/ML 1 ML VIAL IV PRN (09:17)
[2022-04-05] MEDS ORDERED: SODIUM CHLORIDE 0.9% 1,000 ML IV SCH (09:30)
--- NOTE | 2022-04-05 11:03 | P.NPCON ---
History of Present Illness - Reason for Consult Consult date: 04/05/22 end stage renal disease - Chief Complaint Shortness of breath and hyperkalemia - History of Present Illness Is a 56-year-old female known to us with ESRD on dialysis, on a Thursday schedule but because of the pancreatic holiday was scheduled to be dialyzed today. She went to the emergency room from the dialysis unit because of weakness and tiredness. The emergency room her potassium is 8 and she has significant edema and abdominal distention. She gets tab every now and then will last up was a few days ago. She is on nasal cannula oxygen and somewhat short of breath. Patient is known with coronary artery disease COPD type 2 diabetes, history of necrotizing pancreatitis mitral valve replacement pulmonary hypertension Past Medical History Past Medical History: Blood Disorder, Coronary Artery Disease (CAD), Chest Pain / Angina, Heart Failure, COPD, Diabetes Mellitus, Dialysis, Eye Disorder, Hyperlipidemia, Hypertension, Liver Disease, Pneumonia, Renal Disease Additional Past Medical History / Comment(s): IDDM type II, past DKA, L retinal hemorrhages, chronic kidney disease/ESRD with hemodialysis, mineral bone disease, portal htn with hepatosplenomegaly, ascities/paracentesises, fatty liver/cirrhosis, hypertriglyceridemia-induced acute pancreatitis, 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/chronic venous hypertension, 12/2021 covid. History of Any Multi-Drug Resistant Organisms: MRSA Date of last positivie culture/infection: 08-02-20 MDRO Source:: Blood Past Surgical History: Cardiac Valve Replacement, Orthopedic Surgery, Uterine Ablation Additional Past Surgical History / Comment(s): Colonoscopy with polypectomy/biopsy, pancreatic resection at [facility] 2009, bone marrow biopsies X2, dialysis chest port X3 with removals, left arm shunt placement for dialysis and a revision done with shunt, left forearm vein revision, liver biopsy, mitral valve repacement 2019 at [facility],. paracentesis procedures, bilateral cataract removals/lens implants, then laser eye surgery to remove film on lenses, dental surgery. Past Anesthesia/Blood Transfusion Reactions: No Reported Reaction Additional Past Anesthesia/Blood Transfusion Reaction / Comment(s): Pt allergic to Amide type anesthesia/andree type parabins. Pt has received blood transfusions without reaction. Past Psychological History: Anxiety Smoking Status: Never smoker Past Alcohol Use History: None Reported Past Drug Use History: None Reported - Past Family History Brother(s) Family Medical History: No Reported History Mother Family Medical History: Cancer, Congestive Heart Failure (CHF), Diabetes Mellitus Additional Family Medical History / Comment(s): Throat cancer. Father Family Medical History: Hypertension Additional Family Medical History / Comment(s): Alcoholism. Medications and Allergies Home Medications Medication Instructions Recorded Confirmed Type HYDROcodone/APAP 7.5-325MG [[place] 1 tab PO TID PRN 11/08/19 03/27/22 History 7.5-325] traMADol HCL [Ultram] 50 mg PO BID PRN 05/13/20 03/27/22 History Omeprazole 20 mg PO HS 08/02/20 03/27/22 History Lidocaine-Prilocaine Cream [Emla 1 applic TOPICAL TUTHSA PRN 06/18/21 03/27/22 History Cream 2.5%/2.5%] Ondansetron [Zofran] 4 mg PO TID PRN 06/18/21 03/27/22 History rOPINIRole HCL [Requip] 1 mg PO BID 06/18/21 03/27/22 History Gabapentin [Neurontin] 100 mg PO TID 07/08/21 03/27/22 History diazePAM [Valium] 5 mg PO HS 08/08/21 03/27/22 History Furosemide [Lasix] 80 mg PO BID 09/26/21 03/27/22 History Aspirin 325 mg PO DAILY 90 Days #90 tab 12/01/21 03/27/22 Rx amLODIPine [Norvasc] 5 mg PO DAILY 30 Days #30 tab 12/01/21 03/27/22 Rx Metoprolol Tartrate [Lopressor] 50 mg PO TID 12/13/21 03/27/22 History Calcium Carbonate [Tums] 500 mg PO TID PRN 01/29/22 03/27/22 History Melatonin 12 mg PO HS 01/29/22 03/27/22 History Midodrine HCl [ProAmatine] 10 mg PO DAILY PRN 01/29/22 03/27/22 History Sevelamer [Renvela] 3,200 mg PO TID-W/MEALS 01/29/22 03/27/22 History Sevelamer [Renvela] 800 - 1,600 mg PO DAILY PRN 01/29/22 03/27/22 History diazePAM [Valium] 5 mg PO DAILY PRN 01/29/22 03/27/22 History INSULIN ASPART (NovoLOG) [NovoLOG 15 unit SQ TID-W/MEALS 03/27/22 03/27/22 History (formulary)] Insulin Glargine,Hum.rec.anlog 45 units SQ HS 03/27/22 03/27/22 History [Lantus Solostar Pen] cloNIDine HCL [Catapres] 0.1 mg PO BID PRN 03/27/22 03/27/22 History Sildenafil [Revatio] 20 mg PO TID tab 03/28/22 Rx Allergies Allergy/AdvReac Type Severity Reaction Status Date / Time hydromorphone [From Dilaudid] Allergy Swelling Verified 04/05/22 07:35 Anesthetics - Amide Type - AdvReac cardiac Verified 04/05/22 07:35 Select A arrest Anesthetics - Andree Type- AdvReac cardiac Verified 04/05/22 07:35 Parabens arrest ciprofloxacin [From Cipro] AdvReac AFFECTED Verified 04/05/22 07:35 EYESIGHT ciprofloxacin HCl AdvReac AFFECTED Verified 04/05/22 07:35 [From Cipro] EYESIGHT Iodinated Contrast Media AdvReac RENAL Verified 04/05/22 07:35 FAILURE Physical Exam Vitals: Vital Signs Temp Pulse Resp BP Pulse Ox 04/05/22 08:49 45 L 04/05/22 08:40 49 L 04/05/22 08:33 46 L 20 138/68 100 04/05/22 08:32 44 L 04/05/22 08:29 46 L 04/05/22 08:19 44 L 04/05/22 08:09 36 L 04/05/22 07:31 97.4 F L 45 L 18 165/78 98 Intake and Output 04/04/22 04/05/22 04/05/22 22:59 06:59 14:59 Other: Weight 71.668 kg On examination she is awake alert oriented Somewhat short of breath on exam HEENT exam no JVP neck is supple no facial asymmetry Lungs are significant for an occasional coarse crackle at bases good air entry bilaterally Heart sounds unremarkable for any murmur rub gallop Abdomen distended minimal ascites noted Extremity exam was trace edema Neurologically awake alert oriented but weak Results - Lab Results Most recent lab results Calcium 8.7 mg/dL (8.4-10.2) 04/05/22 07:55 Magnesium 2.2 mg/dL (1.6-2.3) 04/05/22 07:55 04/05/22 07:55 04/05/22 07:55 Assessment and Plan Assessment: Impression 1. ESRD on dialysis Thursday but because of she was on Thursday and Thursday schedule today is her regular scheduled dialysis. 2. Admitted with hyperkalemia generalized weakness and some congestive heart failure 3. Diabetes mellitus with end organ damage 4. Significant edema 5. Congestive heart failure 6. Anemia hemoglobin is 10 at target 7. Hyperkalemia potassium 8 8. Mild acidosis with a gap of 18 and a bicarb of 20 from ESRD. Recommendation 1. Will dialyze her this morning with the ultrafiltration goal is 3-1/2 L or 3 hours with a 2K bath 2. Patient may be discharged if stable after this
[2022-04-05] MEDS ORDERED: CALCIUM CARBONATE 500 MG CHEWABLE PO PRN (11:18)
[2022-04-05] MEDS ORDERED: MIDODRINE 5 MG TAB PO PRN (11:18)
[2022-04-05] MEDS ORDERED: traMADol 50 MG TAB PO PRN (11:18)
[2022-04-05] MEDS ORDERED: cloNIDine HCL 0.1 MG TAB PO PRN (11:18)
[2022-04-05] MEDS: METOPROLOL TARTRATE 50 MG TAB PO SCH ×3 (14:00→21:07)
[2022-04-05] MEDS: ASPIRIN 325 MG TAB PO SCH (14:00)
[2022-04-05] MEDS: SEVELAMER 800 MG TAB PO SCH ×2 (14:01→18:15)
[2022-04-05] MEDS: SILDENAFIL 20 MG TAB PO SCH ×2 (14:01→22:20)
[2022-04-05 16:08] LABS: Calcium 8.5 mg/dL (8.4-10.2); Potassium 5.9 mmol/L (3.5-5.1)
[2022-04-05] MEDS ORDERED: DEXTROSE 50% SYRINGE 50 ML IVP PRN ×2 (16:54)
--- NOTE | 2022-04-05 17:29 | XR ---
EXAMINATION TYPE: XR chest 2V DATE OF EXAM: 04/05/2022 COMPARISON: 03/27/2022 HISTORY: Chest pain. Short of breath TECHNIQUE: FINDINGS: Heart is normal. Lungs are clear of consolidation. There is cardiac valve surgery. There are sternal wires. No pleural effusion. There is minimal pulmonary congestion. IMPRESSION: There is mild pulmonary congestion which is new compared to old exam. No pleural fluid se en to suggest significant heart failure.
--- NOTE | 2022-04-05 17:55 | P.HPIM ---
History of Present Illness H&P Date: 04/05/22 Chief Complaint: Feeling weak I'm rounding for Dr. David Bragg This is a pleasant 56-year-old patient who follows with Dr. David Bragg. Chronic stable medical conditions include COPD, diabetes, end-stage kidney disease on hemodialysis with left arm fistula, hyperlipidemia hypertension and hypertriglyceridemia-induced acute pancreatitis, pancreatic resection at [facility] 2009. Repeated paracentesis. Patient is scheduled hemodialysis on Thursday.. Because of Thanksgiving, patient had a hemodialysis on Thursday. Patient did not have dialysis yesterday. Patient felt weak diet and rundown yesterday with increasing pain in the arms legs feet. Decreased appetite. Some shortness of breath. Presented to the ER. No fever no chills. Found to have a potassium of 8. Urgent hemodialysis was done. 3.5 L as above. Breathing better. Feeling better. Review of systems: GEN.: Tired, decreased appetite EYES: None HEENT: None NECK: None RESPIRATORY: As above CARDIOVASCULAR: None GASTROINTESTINAL: None GENITOURINARY: None MUSCULOSKELETAL: Pain in multiple joints LYMPHATICS: None HEMATOLOGICAL: None PSYCHIATRY: None NEUROLOGICAL: [Pain in the feet Past medical history to include: Diastolic heart failure, valvular heart disease status post mitral valve repair in the setting of endocarditis, end-stage kidney disease on hemodialysis, a nemia, diabetes mellitus type, hyperlipidemia, hypertension, secondary pulmonary hypertension with renal bone disease, anemia of chronic kidney disease, fatty liver disease leading to cirrhosis with portal hypertension, ascites, acute kidney injury after pancreatic surgery requiring hemodialysis previously 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 No alcohol. . Family history: Cancer, CHF, diabetes Physical examination: VITAL SIGNS: Recent 0.4, 45, 18, 1 65 x 78, 98% room air upon presentation GENERAL: BMI 28 laying in bed, awake, tired. EYES: Pupils equal. Conjunctiva normal. HEENT: External appearance of nose and ears normal, oral cavity grossly normal. NECK: JVD not raised; masses not palpable. HEART: First and second heart sounds are normal; edema present LUNGS: Respiratory rate normal; clear to auscultation. ABDOMEN: Soft, distended nontender, liver spleen not palpable, no masses palpable. PSYCH: Alert and oriented x3; mood and affect normal. MUSCULOSKELETAL:No Clubbing/cyanosis;muscles-grossly intact NEUROLOGICAL: Cranial nerves grossly intact; no facial asymmetry, power and sensation: decreased sensation peripherally. LYMPHATICS: No lymph nodes palpable in the axilla and neck INVESTIGATIONS, reviewed in the clinical context: White count 6.1 hemoglobin 10 platelets 1:30 potassium 8 BUN 81 creatinine 9.09 TSH 4.7 EKG tracing personally reviewed by me-normal sinus rhythm, intraventricular block Chest x-ray film personally reviewed by me-cardiomegaly, venous prominence Assessment and plan: -Fluid over load multifactorial:, Hemodialysis today 3.5 L removed -Severe hyperkalemia secondary to renal failure Hemodialysis today -Hypertensive heart disease Catapres,, Lopressor -Secondary severe pulmonary hypertension Sildenafil -Severe tricuspid regurgitation Follow clinically - ascites secondary to cirrhosis: Lasix 80 mg twice a day. Pending paracentesis -Portal hypertension with hepatosplenomegaly secondary to cirrhosis Lasix -Cirrhosis secondary to fatty liver Patient does follow with Dr. Andrei Guaman Diabetes mellitus type 2, chronically on insulin. Uncontrolled with hypoglycemia. Levemir 35 units subcu daily at bedtime. Accu-Chek. -End-stage kidney disease on hemodialysis Hemodialysis, Thursday. Nephrology -Hyperlipidemia Cardiac diet -Restless leg syndrome Requip 1 mg twice a day -Essential hypertension Catapres, Lopressor. 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 renvela -Painful peripheral neuropathy: Better Neurontin 100 mg 3 times a day -Chronic insomnia from multiple medical problems Valium -Full code Hemodialysis today. 3.5 L of fluid removed. Repeat potassium ordered. Home medications resumed. Care was discussed with the patient. Questions answered. Follow with nephrology. Past Medical History Past Medical History: Blood Disorder, Coronary Artery Disease (CAD), Chest Pain / Angina, Heart Failure, COPD, Diabetes Mellitus, Dialysis, Eye Disorder, Hyperlipidemia, Hypertension, Liver Disease, Pneumonia, Renal Disease Additional Past Medical History / Comment(s): IDDM type II, past DKA, L retinal hemorrhages, chronic kidney disease/ESRD with hemodialysis, mineral bone disease, portal htn with hepatosplenomegaly, ascities/paracentesises, fatty liver/cirrhosis, hypertriglyceridemia-induced acute pancreatitis, then necrotizing pancreatitis with surgery, infectious myocarditis/en docarditis/mitral valve replaced, pulmonary HTN, UTI, chronic anemia, frequent body cramping, occasional low back pain, carter's palsy X2, past L leg fx, RLS, insomnia, current L lower leg wound/being seen at [facility]/chronic venous hypertension, 12/2021 covid. History of Any Multi-Drug Resistant Organisms: MRSA Date of last positivie culture/infection: 08-02-20 MDRO Source:: Blood Past Surgical History: Cardiac Valve Replacement, Orthopedic Surgery, Uterine Ablation Additional Past Surgical History / Comment(s): Colonoscopy with polypectomy/biopsy, pancreatic resection at [facility] 2009, bone marrow biopsies X2, dialysis chest port X3 with removals, left arm shunt placement for dialysis and a revision done with shunt, left forearm vein revision, liver biopsy, mitral valve repacement 2019 at of ,. paracentesis procedures, bilateral cataract removals/lens implants, then laser eye surgery to remove film on lenses, dental surgery. Past Anesthesia/Blood Transfusion Reactions: No Reported Reaction Additional Past Anesthesia/Blood Transfusion Reaction / Comment(s): Pt allergic to Amide type anesthesia/andree type parabins. Pt has received blood transfusions without reaction. Past Psychological History: Anxiety Smoking Status: Never smoker Past Alcohol Use History: None Reported Past Drug Use History: None Reported - Past Family History Brother(s) Family Medical History: No Reported History Mother Family Medical History: Cancer, Congestive Heart Failure (CHF), Diabetes Mellitus Additional Family Medical History / Comment(s): Throat cancer. Father Family Medical History: Hypertension Additional Family Medical History / Comment(s): Alcoholism. Medications and Allergies Home Medications Medication Instructions Recorded Confirmed Type HYDROcodone/APAP 7.5-325MG [[place] 1 tab PO TID PRN 11/08/19 04/05/22 History 7.5-325] traMADol HCL [Ultram] 50 mg PO BID PRN 05/13/20 04/05/22 History Omeprazole 20 mg PO HS 08/02/20 04/05/22 History Lidocaine-Prilocaine Cream [Emla 1 applic TOPICAL TUTHSA PRN 06/18/21 04/05/22 History Cream 2.5%/2.5%] Ondansetron [Zofran] 4 mg PO TID PRN 06/18/21 04/05/22 History rOPINIRole HCL [Requip] 1 mg PO BID 06/18/21 04/05/22 History Gabapentin [Neurontin] 100 mg PO TID 07/08/21 04/05/22 History diazePAM [Valium] 5 mg PO HS 08/08/21 04/05/22 History Furosemide [Lasix] 80 mg PO BID 09/26/21 04/05/22 History Aspirin 325 mg PO DAILY 90 Days #90 tab 12/01/21 04/05/22 Rx amLODIPine [Norvasc] 5 mg PO DAILY 30 Days #30 tab 12/01/21 04/05/22 Rx Metoprolol Tartrate [Lopressor] 50 mg PO TID 12/13/21 04/05/22 History Calcium Carbonate [Tums] 500 mg PO TID PRN 01/29/22 04/05/22 History Melatonin 12 mg PO HS 01/29/22 04/05/22 History Midodrine HCl [ProAmatine] 10 mg PO DAILY PRN 01/29/22 04/05/22 History Sevelamer [Renvela] 3,200 mg PO TID-W/MEALS 01/29/22 04/05/22 History Sevelamer [Renvela] 800 - 1,600 mg PO DAILY PRN 01/29/22 04/05/22 History diazePAM [Valium] 5 mg PO DAILY PRN 01/29/22 04/05/22 History INSULIN ASPART (NovoLOG) [NovoLOG 15 unit SQ TID-W/MEALS 03/27/22 04/05/22 History (formulary)] Insulin Glargine,Hum.rec.anlog 45 units SQ HS 03/27/22 04/05/22 History [Lantus Solostar Pen] cloNIDine HCL [Catapres] 0.1 mg PO TID PRN 03/27/22 04/05/22 History Sildenafil [Revatio] 20 mg PO TID tab 03/28/22 04/05/22 Rx Allergies Allergy/AdvReac Type Severity Reaction Status Date / Time hydromorphone [From Dilaudid] Allergy Swelling Verified 04/05/22 11:40 Anesthetics - Amide Type - AdvReac cardiac Verified 04/05/22 11:40 Select A arrest Anesthetics - Andree Type- AdvReac cardiac Verified 04/05/22 11:40 Parabens arrest ciprofloxacin [From Cipro] AdvReac AFFECTED Verified 04/05/22 11:40 EYESIGHT ciprofloxacin HCl AdvReac AFFECTED Verified 04/05/22 11:40 [From Cipro] EYESIGHT Iodinated Contrast Media AdvReac RENAL Verified 04/05/22 11:40 FAILURE Physical Exam Vitals: Vital Signs Temp Pulse Resp BP Pulse Ox 04/05/22 11:00 68 18 122/86 95 04/05/22 08:49 45 L 04/05/22 08:40 49 L 04/05/22 08:33 46 L 20 138/68 100 04/05/22 08:32 44 L 04/05/22 08:29 46 L 04/05/22 08:19 44 L 04/05/22 08:09 36 L 04/05/22 07:31 97.4 F L 45 L 18 165/78 98 Intake and Output 04/04/22 04/05/22 04/05/22 22:59 06:59 14:59 Other: Weight 71.668 kg Results CBC & Chem 7: 04/05/22 07:55 04/05/22 15:52 Labs: Abnormal Lab Results - Last 24 Hours (Table) 04/05/22 04/05/22 04/05/22 Range/Units 07:55 07:55 08:01 RBC 3.35 L (3.80-5.40) m/uL Hgb 10.0 L (11.4-16.0) gm/dL Hct 31.8 L (34.0-46.0) % RDW 15.6 H (11.5-15.5) % Plt Count 130 L D (150-450) k/uL Sodium 133 L (137-145) mmol/L Potassium 8.0 H* (3.5-5.1) mmol/L Chloride 95 L (98-107) mmol/L Carbon Dioxide 20 L (22-30) mmol/L BUN 81 H (7-17) mg/dL Creatinine 9.09 H* (0.52-1.04) mg/dL Glucose 194 H (74-99) mg/dL POC Glucose (mg/dL) 303 H (70-110) mg/dL TSH 4.710 H (0.465-4.680) mIU/L
[2022-04-05 18:09] LABS: Glucose,Whole Blood 224 mg/dL (70-110)
[2022-04-05] MEDS: INSULIN ASPART (NovoLOG) 100 UNIT/ML VIAL SQ SCH (18:14)
[2022-04-05] MEDS: FUROSEMIDE 80 MG TAB PO SCH (18:14)
[2022-04-05 20:34] LABS: Glucose,Whole Blood 259 mg/dL (70-110)
[2022-04-05] MEDS: PANTOPRAZOLE 40 MG TABLET PO SCH (21:03)
[2022-04-05] MEDS: INSULIN DETEMIR (LEVEMIR) 100 UNIT/ML SYR SQ SCH (21:03)
[2022-04-05] MEDS: diazePAM 5 MG TAB PO SCH (21:03)
[2022-04-05] MEDS: HYDROcodone/APAP 7.5-325MG 1 EACH TAB PO PRN (21:06)
[2022-04-06 06:22] LABS: Glucose,Whole Blood 228 mg/dL (70-110)
[2022-04-06] MEDS: INSULIN ASPART (NovoLOG) 100 UNIT/ML VIAL SQ SCH ×3 (06:51→16:42)
[2022-04-06] MEDS: SEVELAMER 800 MG TAB PO SCH ×3 (06:52→17:30)
[2022-04-06] MEDS: HYDROcodone/APAP 7.5-325MG 1 EACH TAB PO PRN ×2 (06:54→20:36)
[2022-04-06] MEDS: SILDENAFIL 20 MG TAB PO SCH ×3 (08:28→22:30)
[2022-04-06] MEDS: METOPROLOL TARTRATE 50 MG TAB PO SCH ×3 (08:28→20:27)
[2022-04-06] MEDS: ASPIRIN 325 MG TAB PO SCH (08:28)
[2022-04-06] MEDS: FUROSEMIDE 80 MG TAB PO SCH ×2 (08:28→17:28)
[2022-04-06] MEDS ORDERED: SODIUM ZIRCONIUM CYCLOSILICATE 10 GM PACKET PO ONE ×2 (09:19→13:00)
--- NOTE | 2022-04-06 09:19 | P.PN ---
Subjective Progress Note Date: 04/06/22 Principal diagnosis: Is a 56-year-old female known to us with ESRD on dialysis, on a Thursday schedule but because of the was scheduled to be d ialyzed on a Thursday instead of Thursday. She went to the emergency room from the dialysis unit because of weakness and tiredness. The emergency room her potassium is 8 and she has significant edema and abdominal distention. She gets tapped every now and then will last up was a few days ago. is dialyzed yesterday and 3500 mL ultrafiltrating. She complains of weakness in leg and aches but not short of breath she is on room air currently Patient is known with coronary artery disease COPD type 2 diabetes, history of necrotizing pancreatitis mitral valve replacement pulmonary hypertension Objective - Vital Signs Vital signs: Vital Signs Temp 98.8 F 04/06/22 08:21 Pulse 64 04/06/22 08:21 Resp 18 04/06/22 08:21 BP 144/50 04/06/22 08:21 Pulse Ox 97 04/06/22 08:21 FiO2 Intake & Output 04/05/22 04/06/22 04/06/22 18:59 06:59 18:59 Intake Total 118 Output Total 3500 Balance -3500 118 Weight 71.668 kg 71.668 kg Intake: Oral 118 Output: Hemodialysis 3500 Other: Voiding Method Toilet # Voids 1 On exam she is awake alert oriented on room air and comfortable No JVP noted Lungs are clear to auscultation good air entry bilaterally Heart sounds unremarkable for any murmur rub gallop Abdomen soft nontender protuberant with mild ascites Extremity exam was 2+ edema Neurologically awake alert oriented - Labs CBC & Chem 7: 04/05/22 07:55 04/05/22 15:52 Labs: Abnormal Lab Results - Last 24 Hours (Table) 04/05/22 04/05/22 04/05/22 Range/Units 07:55 15:52 18:07 Sodium 134 L (137-145) mmol/L Potassium 5.9 H (3.5-5.1) mmol/L BUN 53 H (7-17) mg/dL Creatinine 6.39 H (0.52-1.04) mg/dL Glucose 173 H (74-99) mg/dL POC Glucose (mg/dL) 224 H (70-110) mg/dL Hemoglobin A1c 7.2 H (0.0-6.0) % 04/05/22 04/06/22 Range/Units 20:33 06:21 Sodium (137-145) mmol/L Potassium (3.5-5.1) mmol/L BUN (7-17) mg/dL Creatinine (0.52-1.04) mg/dL Glucose (74-99) mg/dL POC Glucose (mg/dL) 259 H 228 H (70-110) mg/dL Hemoglobin A1c (0.0-6.0) % Assessment and Plan Assessment: Impression 1. ESRD on dialysis Thursday but because of Thanks weekend she was on Thursday and Thursday schedule. Came to the emergency room on Thursday and potassium is 8 and she was dialyzed with 3.5 L taken off. 2. Admitted with hyperkalemia generalized weakness and some congestive heart failure. Potassium is 5.9 yesterday postdialysis 3. Diabetes mellitus with end organ damage 4. Significant edema 5. Congestive heart failure, resolved 6. Anemia hemoglobin is 10 at target 7. Hyperkalemia potassium 8 8. Mild acidosis with a gap of 18 and a bicarb of 20 from ESRD. Recommendation 1. Will dialyze her tomorrow with ultrafiltration goal of about 3-1/2-4 L. This can be done as an outpatient 2. One dose of lokelma 10 gm today 3. Patient may be discharged home to follow-up with dialysis tomorrow
[2022-04-06 10:49] LABS: Basophils % (A) 1 %; Eosinophils # (A) 0.1 k/uL (0-0.7); Eosinophils % (A) 1 %; HCT 27.9 % (34.0-46.0); HGB 8.8 gm/dL (11.4-16.0); Hypochromasia Moderate; Lymphocytes # (A) 0.6 k/uL (1.0-4.8); Lymphocytes % (A) 16 %; MCH 29.9 pg (25.0-35.0); MCHC 31.5 g/dL (31.0-37.0); MCV 94.9 fL (80.0-100.0); Mean Platelet Volume 9.1; Monocytes # (A) 0.2 k/uL (0-1.0); Monocytes % (A) 5 %; Neutrophils # (A) 2.7 k/uL (1.3-7.7); Neutrophils % (A) 75 %; RBC 2.93 m/uL (3.80-5.40); RDW 15.8 % (11.5-15.5); WBC 3.5 k/uL (3.8-10.6)
[2022-04-06 10:50] LABS: Platelet Count 91 k/uL (150-450)
[2022-04-06 10:52] LABS: Calcium 8.7 mg/dL (8.4-10.2)
[2022-04-06 10:55] LABS: Potassium 7.8 mmol/L (3.5-5.1)
[2022-04-06 11:33] LABS: Glucose,Whole Blood 256 mg/dL (70-110)
[2022-04-06 12:35] LABS: Calcium 8.5 mg/dL (8.4-10.2)
[2022-04-06 12:44] LABS: Potassium 6.9 mmol/L (3.5-5.1)
[2022-04-06] MEDS ORDERED: INSULIN REGULAR 100 UNIT/ML VIAL (IV) IV ONE (13:01)
[2022-04-06] MEDS ORDERED: DEXTROSE 50% SYRINGE 50 ML IVP STA (13:02)
[2022-04-06 16:40] LABS: Glucose,Whole Blood 144 mg/dL (70-110)
[2022-04-06] MEDS: GABAPENTIN 100 MG CAP PO SCH ×2 (17:28→20:27)
[2022-04-06 18:15] LABS: Calcium 8.7 mg/dL (8.4-10.2)
[2022-04-06 18:39] LABS: Potassium 6.3 mmol/L (3.5-5.1)
--- NOTE | 2022-04-06 19:57 | P.PN ---
Progress Note - Text Progress Note Date: 04/06/22 Chief Complaint: Feeling weak I'm rounding for Dr. David Bragg This is a pleasant 56-year-old patient who follows with Dr. David Bragg. Chronic stable medical conditions include COPD, diabetes, end-stage kidney disease on hemodialysis with left arm fistula, hyperlipidemia hypertension and hypertriglyceridemia-induced acute pancreatitis, pancreatic resection at [facility] 2009. Repeated paracentesis. Patient is scheduled hemodialysis on Thursday.. Because of Thanksgiving, patient had a hemodialysis on Thursday. Patient did not have dialysis yesterday. Patient felt weak diet and rundown yesterday with increasing pain in the arms legs feet. Decreased appetite. Some shortness of breath. Presented to the ER. No fever no chills. Found to have a potassium of 8. Urgent hemodialysis was done. 3.5 L as above. Breathing better. Feeling better. 04/06/2022: Patient was hemodialyzed yesterday. Feeling better. Eating better. Given Lokelma for a potassium of 6.9. Repeat potassium came back at 6.3. Discharge held. He'll be dialyzed tomorrow. Active Medications Hydrocodone Bitart/Acetaminophen (Hydrocodone/Apap 7.5-325mg 1 Each Tab) 1 each PO TID PRN PRN Reason: PAIN 5-10 Last Admin: 04/06/22 06:54 Dose: 1 each Aspirin (Aspirin 325 Mg Tab) 325 mg PO DAILY [facility] Last Admin: 04/06/22 08:28 Dose: 325 mg Calcium Carbonate/Glycine (Calcium Carbonate 500 Mg Chewable) 500 mg PO TID PRN PRN Reason: GI Upset Clonidine (Clonidine Hcl 0.1 Mg Tab) 0.1 mg PO BID PRN PRN Reason: HOLD IF BP <120/70 Dextrose/Water (Dextrose 50% Syringe 50 Ml) 25 ml IVP PER PROTOCOL PRN; Protocol PRN Reason: Hypoglycemia Dextrose/Water (Dextrose 50% Syringe 50 Ml) 50 ml IVP PER PROTOCOL PRN; Protocol PRN Reason: Hypoglycemia Diazepam (Diazepam 5 Mg Tab) 5 mg PO HS [facility] Last Admin: 04/05/22 21:03 Dose: 5 mg Furosemide (Furosemide 80 Mg Tab) 80 mg PO BID@0900,1600 [facility] Last Admin: 04/06/22 17:28 Dose: 80 mg Gabapentin (Gabapentin 100 Mg Cap) 100 mg PO TID [facility] Last Admin: 04/06/22 17:28 Dose: 100 mg Insulin Aspart (Insulin Aspart (Novolog) 100 Unit/Ml Vial) 0 unit SQ AC-TID [facility]; Protocol Last Admin: 04/06/22 16:42 Dose: Not Given Insulin Detemir (Insulin Detemir (Levemir) 100 Unit/Ml Syr) 35 unit SQ [facility] Last Admin: 04/05/22 21:03 Dose: 35 unit Metoprolol Tartrate (Metoprolol Tartrate 50 Mg Tab) 50 mg PO TID [facility] Last Admin: 04/06/22 17:28 Dose: 50 mg Midodrine (Midodrine 5 Mg Tab) 10 mg PO DAILY PRN PRN Reason: Blood Pressure - Low Naloxone HCl (Naloxone 0.4 Mg/Ml 1 Ml Vial) 0.2 mg IV Q2M PRN PRN Reason: Opioid Reversal Ondansetron HCl (Ondansetron 4 Mg Tab) 4 mg PO TID PRN PRN Reason: Nausea Pantoprazole Sodium (Pantoprazole 40 Mg Tablet) 40 mg PO [facility] Last Admin: 04/05/22 21:03 Dose: 40 mg Ropinirole HCl (Ropinirole Hcl 1 Mg Tab) 1 mg PO BID [facility] Last Admin: 04/06/22 08:28 Dose: 1 mg Sevelamer Carbonate (Sevelamer 800 Mg Tab) 3,200 mg PO TID-W/MEALS [facility] Last Admin: 04/06/22 17:30 Dose: 3,200 mg Sildenafil Citrate (Sildenafil 20 Mg Tab) 20 mg PO TID [facility] Last Admin: 04/06/22 17:28 Dose: 20 mg Sodium Zirconium Cyclosilicate (Sodium Zirconium Cyclosilicate 10 Gm Packet) 10 gm PO TID [facility] Stop: 04/07/22 22:01 Tramadol HCl (Tramadol 50 Mg Tab) 50 mg PO BID PRN PRN Reason: Pain 1-4 Past medical history to include: Diastolic heart failure, valvular heart disease status post mitral valve repair in the setting of endocarditis, end-stage kidney disease on hemodialysis, anemia, diabetes mellitus type, hyperlipidemia, hypertension, secondary pulmonary hypertension with renal bone disease, anemia of chronic kidney disea se, fatty liver disease leading to cirrhosis with portal hypertension, ascites, acute kidney injury after pancreatic surgery requiring hemodialysis previously 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 No alcohol. . Family history: Cancer, CHF, diabetes Physical examination: VITAL SIGNS: 98.8, 75, 18, 1 48 x 66, 95% room air GENERAL: Sitting of the bed, awake, looking better. EYES: Pupils equal. Conjunctiva normal. HEENT: External appearance of nose and ears normal, oral cavity grossly normal. NECK: JVD not raised; masses not palpable. HEART: First and second heart sounds are normal; edema present LUNGS: Respiratory rate normal; clear to auscultation. ABDOMEN: Soft, distended nontender, liver spleen not palpable, no masses palpable. PSYCH: Alert and oriented x3; mood and affect normal. MUSCULOSKELETAL:No Clubbing/cyanosis;muscles-grossly intact NEUROLOGICAL: Cranial nerves grossly intact; no facial asymmetry, power and sensation: decreased sensation peripherally. INVESTIGATIONS, reviewed in the clinical context: 04/06/2022: Potassium 6.3 BUN 74 creatinine 8.71 White count 6.1 hemoglobin 10 platelets 1:30 potassium 8 BUN 81 creatinine 9.09 TSH 4.7 EKG tracing personally reviewed by me-normal sinus rhythm, intraventricular block Chest x-ray film personally reviewed by me-cardiomegaly, venous prominence Assessment and plan: -Fluid over load multifactorial:, Hemodialysis yesterday 3.5 L removed -Severe hyperkalemia secondary to renal failure: Slow to respond Hemodialysis yesterday. Lokelma started today. Dialysis tomorrow. -Hypertensive heart disease Catapres,, Lopressor -Secondary severe pulmonary hypertension Sildenafil -Severe tricuspid regurgitation Follow clinically - ascites secondary to cirrhosis: Lasix 80 mg twice a day. Pending paracentesis -Portal hypertension with hepatosplenomegaly secondary to cirrhosis Lasix -Cirrhosis secondary to fatty liver Patient does follow with Dr. Andrei Guaman Diabetes mellitus type 2, chronically on insulin. Uncontrolled with hypoglycemia. Levemir 35 units subcu daily at bedtime. Accu-Chek. -End-stage kidney disease on hemodialysis Hemodialysis, Thursday. Nephrology -Hyperlipidemia Cardiac diet -Restless leg syndrome Requip 1 mg twice a day -Essential hypertension Catapres, Lopressor. 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 renvela -Painful peripheral neuropathy: Better Neurontin 100 mg 3 times a day -Chronic insomnia from multiple medical problems Valium -Full code Lokelma started 10 mg 3 times a day.. Potassium still at 6.3. Possible DC home after dialysis tomorrow. Discussed with patient. Other medications to continue.
[2022-04-06 20:24] LABS: Glucose,Whole Blood 174 mg/dL (70-110)
[2022-04-06] MEDS: PANTOPRAZOLE 40 MG TABLET PO SCH (20:27)
[2022-04-06] MEDS: INSULIN DETEMIR (LEVEMIR) 100 UNIT/ML SYR SQ SCH (20:28)
[2022-04-06] MEDS: SODIUM ZIRCONIUM CYCLOSILICATE 10 GM PACKET PO SCH (20:28)
[2022-04-06] MEDS: diazePAM 5 MG TAB PO SCH (20:28)
[2022-04-07 03:10] LABS: Calcium 8.8 mg/dL (8.4-10.2)
[2022-04-07 06:08] LABS: Glucose,Whole Blood 103 mg/dL (70-110)
[2022-04-07] MEDS: INSULIN ASPART (NovoLOG) 100 UNIT/ML VIAL SQ SCH ×3 (06:20→17:41)
[2022-04-07] MEDS: SEVELAMER 800 MG TAB PO SCH ×3 (06:29→17:41)
[2022-04-07] MEDS: FUROSEMIDE 80 MG TAB PO SCH ×3 (09:22→17:35)
[2022-04-07] MEDS: ASPIRIN 325 MG TAB PO SCH (09:22)
[2022-04-07] MEDS: METOPROLOL TARTRATE 50 MG TAB PO SCH ×3 (09:22→21:00)
[2022-04-07] MEDS: GABAPENTIN 100 MG CAP PO SCH ×3 (09:22→21:00)
[2022-04-07] MEDS: SILDENAFIL 20 MG TAB PO SCH ×3 (09:23→21:00)
--- NOTE | 2022-04-07 11:46 | P.PN ---
Subjective Patient is seen for follow-up for end-stage renal disease. She is currently seen on hemodialysis. Tolerating her treatment well. UF set for about 4 L today. Potassium remains elevated at 6.0 dialysis bath has been adjusted accordingly. Objective - Vital Signs Vital signs: Vital Signs Temp 97.8 F 04/07/22 09:17 Pulse 67 04/07/22 10:21 Resp 18 04/07/22 10:21 BP 173/82 04/07/22 09:17 Pulse Ox 94 L 04/07/22 09:17 FiO2 Intake & Output 04/06/22 04/07/22 04/07/22 18:59 06:59 18:59 Intake Total 594 Balance 594 Intake: Oral 594 Other: Voiding Method Toilet Toilet Toilet # Voids 2 - Exam Awake, comfortable, no acute distress Significant edema noted bilateral lower extremities about 4+ Abdomen is soft distended nontender. ascites noted Patient is alert and oriented 3. [employer] exam grossly intact - Labs CBC & Chem 7: 04/06/22 08:28 04/07/22 02:20 Labs: Abnormal Lab Results - Last 24 Hours (Table) 04/06/22 04/06/22 04/06/22 Range/Units 11:36 16:38 17:41 Sodium 134 L 133 L (137-145) mmol/L Potassium 6.9 H* 6.3 H* (3.5-5.1) mmol/L Chloride 95 L 96 L (98-107) mmol/L BUN 70 H 74 H (7-17) mg/dL Creatinine 8.48 H* 8.71 H* (0.52-1.04) mg/dL Glucose 212 H 181 H (74-99) mg/dL POC Glucose (mg/dL) 144 H (70-110) mg/dL 04/06/22 04/07/22 Range/Units 20:22 02:20 Sodium 132 L (137-145) mmol/L Potassium 6.0 H (3.5-5.1) mmol/L Chloride 93 L (98-107) mmol/L BUN 78 H (7-17) mg/dL Creatinine 9.25 H* (0.52-1.04) mg/dL Glucose 167 H (74-99) mg/dL POC Glucose (mg/dL) 174 H (70-110) mg/dL Assessment and Plan Assessment: 1. End-stage renal disease on TTS schedule as outpatient. 2. Hyperkalemia associated with dietary noncompliance and end-stage renal disease 3. Volume overload 4. Anemia of chronic disease 5. Chronic liver disease with recurrent ascites needing paracentesis Plan: Increase goal to about 4 L as tolerated today Adjust potassium bath Fluid restriction and potassium restriction and diet discussed with patient If patient is discharged she will have her dialysis tomorrow as outpatient otherwise she will be dialyzed here.
[2022-04-07 12:01] LABS: Glucose,Whole Blood 154 mg/dL (70-110)
[2022-04-07] MEDS: SODIUM ZIRCONIUM CYCLOSILICATE 10 GM PACKET PO SCH ×3 (12:22→21:00)
[2022-04-07] MEDS: HYDROcodone/APAP 7.5-325MG 1 EACH TAB PO PRN (14:54)
[2022-04-07 17:05] LABS: Glucose,Whole Blood 191 mg/dL (70-110)
[2022-04-07 20:26] LABS: Calcium 8.8 mg/dL (8.4-10.2); Potassium 4.9 mmol/L (3.5-5.1)
[2022-04-07 20:41] LABS: Glucose,Whole Blood 258 mg/dL (70-110)
[2022-04-07] MEDS: diazePAM 5 MG TAB PO SCH (21:00)
[2022-04-07] MEDS: INSULIN DETEMIR (LEVEMIR) 100 UNIT/ML SYR SQ SCH (21:00)
[2022-04-07] MEDS: PANTOPRAZOLE 40 MG TABLET PO SCH (21:00)
--- NOTE | 2022-04-07 21:20 | US ---
EXAMINATION TYPE: US abdomen limited DATE OF EXAM: 04/07/2022 COMPARISON: 03/27/22 CLINICAL HISTORY: r/o ascities. r/o ascites. Para done 2 weeks ago. Technique: Four-quadrant ultrasound for fluid assessment. Findings: Moderate amount of anechoic fluid present in RLQ and LLQ. Mild amount seen in RUQ and LUQ. IMPRESSION: Moderate abdominal ascites.
[2022-04-08] MEDS: HYDROcodone/APAP 7.5-325MG 1 EACH TAB PO PRN ×3 (01:30→16:25)
[2022-04-08] MEDS: ONDANSETRON 4 MG TAB PO PRN ×2 (01:40→08:32)
--- NOTE | 2022-04-08 02:08 | PN ---
PROGRESS NOTE SUBJECTIVE: A white female who does not feel ready to go home. Her potassium score is at 6, want to redraw tonight. Do an ultrasound of her abdomen to check for possible paracentesis. She had her last paracentesis 2 weeks ago for autoimmune hepatitis and cirrhosis confirming to her. She has large edema in her belly and her legs. She had a dialysis today, she is going to get dialysis tomorrow. Ultrasound has been ordered for possible paracentesis, will consult interventional radiologist for this. Also. Medications were reviewed with her. She is frustrated, does not feel good, also after checking for orthostatic hypotension, O2 is 98, blood pressure 168/77, temp 98.2, pulse 66, respiratory rate 18-20. ASSESSMENT: End-stage renal disease, fluid overload, hyperkalemia secondary to renal disease, most likely autoimmune hepatitis with cirrhosis due to generalized swelling. PLAN: Dialysis tomorrow. Ultrasound of the abdomen, possible paracentesis. Please see further orders. MMODL / IJN: [id number] /
[2022-04-08 06:09] LABS: Glucose,Whole Blood 119 mg/dL (70-110)
[2022-04-08] MEDS: INSULIN ASPART (NovoLOG) 100 UNIT/ML VIAL SQ SCH ×3 (06:26→17:05)
[2022-04-08] MEDS: SEVELAMER 800 MG TAB PO SCH ×3 (06:36→16:25)
[2022-04-08] MEDS: ASPIRIN 325 MG TAB PO SCH (08:32)
[2022-04-08] MEDS: SILDENAFIL 20 MG TAB PO SCH ×3 (08:32→20:20)
[2022-04-08] MEDS: FUROSEMIDE 80 MG TAB PO SCH ×2 (08:32→16:26)
[2022-04-08] MEDS: METOPROLOL TARTRATE 50 MG TAB PO SCH ×3 (08:32→20:20)
[2022-04-08] MEDS: GABAPENTIN 100 MG CAP PO SCH ×3 (08:32→20:20)
[2022-04-08 08:39] LABS: Basophils % (A) 1 %; Eosinophils # (A) 0.1 k/uL (0-0.7); Eosinophils % (A) 1 %; HCT 31.9 % (34.0-46.0); HGB 9.7 gm/dL (11.4-16.0); Hypochromasia Moderate; Lymphocytes # (A) 0.5 k/uL (1.0-4.8); Lymphocytes % (A) 14 %; MCH 28.9 pg (25.0-35.0); MCHC 30.5 g/dL (31.0-37.0); MCV 94.9 fL (80.0-100.0); Mean Platelet Volume 9.9; Monocytes # (A) 0.2 k/uL (0-1.0); Monocytes % (A) 6 %; Neutrophils # (A) 2.4 k/uL (1.3-7.7); Neutrophils % (A) 74 %; RBC 3.36 m/uL (3.80-5.40); RDW 15.6 % (11.5-15.5); WBC 3.3 k/uL (3.8-10.6)
[2022-04-08 08:44] LABS: Platelet Count 97 k/uL (150-450)
[2022-04-08 08:58] LABS: Albumin 4.6 g/dL (3.5-5.0); Total Bilirubin 0.7 mg/dL (0.2-1.3)
--- NOTE | 2022-04-08 11:31 | P.PN ---
Subjective Patient is seen for follow-up for end-stage renal disease. Status post hemodialysis yesterday with ultrafiltration of about 3.7 L. Next Patient is scheduled for hemodialysis again today. She complained of nausea this morning. Patient states the omeprazole was changed to once a day recently. Objective - Vital Signs Vital signs: Vital Signs Temp 98.0 F 04/08/22 11:23 Pulse 98 04/08/22 11:23 Resp 16 04/08/22 11:23 BP 154/65 04/08/22 11:23 Pulse Ox 99 04/08/22 11:23 FiO2 Intake & Output 04/07/22 04/08/22 04/08/22 18:59 06:59 18:59 Intake Total 300 120 Output Total 3700 300 Balance -3400 -180 Intake: Oral 120 Hemodialysis 300 Output: Emesis 300 Hemodialysis 3700 Other: Voiding Method Toilet Toilet Toilet - Exam Awake, comfortable, no acute distress Examination of the heart S1 and S2 Examination lungs bilateral breath sounds are heard no crackles or wheezing is heard Significant edema noted bilateral lower extremities about 4+ Abdomen is soft distended nontender. ascites noted Patient is alert and oriented 3. 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 exam grossly intact - Labs CBC & Chem 7: 04/08/22 08:23 04/08/22 08:23 Labs: Abnormal Lab Results - Last 24 Hours (Table) 04/07/22 04/07/22 04/07/22 Range/Units 11:59 17:03 20:00 WBC (3.8-10.6) k/uL RBC (3.80-5.40) m/uL Hgb (11.4-16.0) gm/dL Hct (34.0-46.0) % MCHC (31.0-37.0) g/dL RDW (11.5-15.5) % Plt Count (150-450) k/uL Lymphocytes # (1.0-4.8) k/uL Sodium 134 L (137-145) mmol/L BUN 45 H (7-17) mg/dL Creatinine 6.36 H (0.52-1.04) mg/dL Glucose 249 H (74-99) mg/dL POC Glucose (mg/dL) 154 H 191 H (70-110) mg/dL 04/07/22 04/08/22 04/08/22 Range/Units 20:40 06:07 08:23 WBC 3.3 L (3.8-10.6) k/uL RBC 3.36 L (3.80-5.40) m/uL Hgb 9.7 L (11.4-16.0) gm/dL Hct 31.9 L (34.0-46.0) % MCHC 30.5 L (31.0-37.0) g/dL RDW 15.6 H (11.5-15.5) % Plt Count 97 L (150-450) k/uL Lymphocytes # 0.5 L (1.0-4.8) k/uL Sodium (137-145) mmol/L BUN (7-17) mg/dL Creatinine (0.52-1.04) mg/dL Glucose (74-99) mg/dL POC Glucose (mg/dL) 258 H 119 H (70-110) mg/dL 04/08/22 Range/Units 08:23 WBC (3.8-10.6) k/uL RBC (3.80-5.40) m/uL Hgb (11.4-16.0) gm/dL Hct (34.0-46.0) % MCHC (31.0-37.0) g/dL RDW (11.5-15.5) % Plt Count (150-450) k/uL Lymphocytes # (1.0-4.8) k/uL Sodium (137-145) mmol/L BUN 50 H (7-17) mg/dL Creatinine 7.45 H* (0.52-1.04) mg/dL Glucose (74-99) mg/dL POC Glucose (mg/dL) (70-110) mg/dL Assessment and Plan Assessment: 1. End-stage renal disease on TTS schedule as outpatient. 2. Hyperkalemia associated with dietary noncompliance and end-stage renal disease 3. Volume overload 4. Anemia of chronic disease 5. Chronic liver disease with recurrent ascites needing paracentesis Plan: Repeat hemodialysis today with goal UF of about 4 L Patient is stable for discharge from nephrology standpoint Consider increasing omeprazole if nausea persists.
[2022-04-08 12:01] LABS: Glucose,Whole Blood 78 mg/dL (70-110)
[2022-04-08 16:51] LABS: Glucose,Whole Blood 286 mg/dL (70-110)
[2022-04-08] MEDS: PANTOPRAZOLE 40 MG TABLET PO SCH (20:20)
[2022-04-08 20:23] LABS: Glucose,Whole Blood 288 mg/dL (70-110)
[2022-04-08] MEDS: INSULIN DETEMIR (LEVEMIR) 100 UNIT/ML SYR SQ SCH (20:25)
[2022-04-08] MEDS: diazePAM 5 MG TAB PO SCH (23:45)
[2022-04-09 00:26] VITALS: RESP 18
[2022-04-09 01:23] LABS: Glucose,Whole Blood 96 mg/dL (70-110)
--- NOTE | 2022-04-09 04:49 | PN ---
PROGRESS NOTE SUBJECTIVE: A 56-year-old white female, who was kept overnight due to leg swelling, abdominal swelling. She is dizzy and lightheaded. She does not feel good about going home tonight. She is saturating high 90s on room air. Blood pressure is 150s to 190s over 70s to 90s, temp 98, pulse 68, respiratory rate 16. Her potassium level came back improved last night 4.9, now is 5.0. She go on Kayexalate at home. BUN is 50, creatinine is 0.45. She is getting dialysis today. Her ammonia level is 29, which is just below the 30 range. 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 We are ordering an ultrasound to be done to check for ascites and possible drainage. She has moderate abdominal ascites. GI consult with Radiation Oncology. Radiology to do a paracentesis today and then she possibly can go home. She will probably need a paracentesis every 2 weeks. OBJECTIVE: CARDIOVASCULAR: S1, S2. LUNGS: Scattered rales. HEMATOLOGY: 2 to 3+ edema. ABDOMEN: Distended. Cirrhosis, fluid wave. ASSESSMENT: Abdominal ascites. Wait for to do a paracentesis prior to going home. We will get dialysis today. Check electrolytes in the morning. MMODL / IJN: [id number] /
[2022-04-09] MEDS: SEVELAMER 800 MG TAB PO SCH ×2 (06:21→12:03)
[2022-04-09 06:23] LABS: Glucose,Whole Blood 85 mg/dL (70-110)
[2022-04-09] MEDS: INSULIN ASPART (NovoLOG) 100 UNIT/ML VIAL SQ SCH ×2 (06:24→12:03)
[2022-04-09 09:04] VITALS: TEMP 98.1
[2022-04-09] MEDS: METOPROLOL TARTRATE 50 MG TAB PO SCH (09:05)
[2022-04-09] MEDS: FUROSEMIDE 80 MG TAB PO SCH (09:05)
[2022-04-09] MEDS: GABAPENTIN 100 MG CAP PO SCH (09:05)
[2022-04-09 10:15] LABS: Basophils % (A) 1 %; Eosinophils % (A) 1 %; HCT 27.6 % (34.0-46.0); HGB 8.8 gm/dL (11.4-16.0); Hypochromasia Moderate; Lymphocytes # (A) 0.3 k/uL (1.0-4.8); Lymphocytes % (A) 14 %; MCH 30.1 pg (25.0-35.0); Mean Platelet Volume 8.6; Monocytes # (A) 0.2 k/uL (0-1.0); Monocytes % (A) 8 %; Neutrophils # (A) 1.7 k/uL (1.3-7.7); Neutrophils % (A) 74 %; RBC 2.93 m/uL (3.80-5.40); RDW 15.4 % (11.5-15.5); WBC 2.3 k/uL (3.8-10.6)
[2022-04-09 10:22] LABS: Platelet Count 82 k/uL (150-450)
[2022-04-09 10:25] LABS: Albumin 4.3 g/dL (3.5-5.0); Potassium 4.7 mmol/L (3.5-5.1); Total Bilirubin 0.6 mg/dL (0.2-1.3); Total Protein 6.7 g/dL (6.3-8.2)
[2022-04-09 11:39] LABS: Glucose,Whole Blood 193 mg/dL (70-110)
[2022-04-09] MEDS: ASPIRIN 325 MG TAB PO SCH (12:03)
[2022-04-09] MEDS: SILDENAFIL 20 MG TAB PO SCH (12:03)
[2022-04-09] MEDS: HYDROcodone/APAP 7.5-325MG 1 EACH TAB PO PRN (12:09)
[2022-04-09 12:12] VITALS: BP 202/90; PULSE 61
[2022-04-09] MEDS ORDERED: cloNIDine HCL 0.1 MG TAB PO SCH (12:15)
--- NOTE | 2022-04-09 15:21 | US ---
EXAM: Ultrasound-guided Paracentesis DATE: 04/09/2022 11:03 AM REASON FOR EXAM: 56 year-old female with ascites. RADIOLOGIST: Dr. Scruggs CLINICAL RECRUITER: None ANESTHESIA: Local Lidocaine TECHNIQUE: I verify that I have discussed the potential benefits, risks, and side effects regarding this treatme nt/procedure, the likelihood of the patient achieving his or her goals, and the potential problems th at might occur during recuperation. I verify that I have explained the alternatives to the patient i ncluding the risks, benefits, and side effects related to the alternatives and the risks related to n ot receiving the operation/procedure/treatment. The patient/surrogate decision maker has had an oppo rtunity to ask and have questions answered. I have secured the patient's or the surrogate decision m tiki's consent prior to the operation/procedure/treatment. Patient was placed supine on ultrasound table and the lower abdomen was prepped and draped in usual s terile fashion. 1% lidocaine was infused into the skin and subcutaneous soft tissues to achieve local anesthesia. Under sonographic guidance a 5 F Yueh needle was advanced into the ascites. Approximat siena 2500 ml of dark alex-colored fluid was removed. Sample was sent to the laboratory for further e valuation. FINDINGS: Sonographic images of the abdomen demonstrate a large amount of free fluid. IMPRESSION: Technically successful uncomplicated diagnostic and therapeutic paracentesis.
[2022-04-09 22:46] LABS: Appearance,BF BLOOD TINGED TURBID
[2022-04-10 00:13] LABS: Glucose, BF Source Ascites; Glucose, Body Fluid 145 mg/dL; LDH, Body Fluid Source Ascites; T. Protein, Body Fluid Source Ascites; Total Protein, Body Fluid 3640 mg/dL
== END 2022-04-09 15:54 | disposition home or self-care (01) | DRG 640 ==
LOC: EC 07:18 → 3SCARD 09:17
PROVIDERS: ADMIT Family Medicine; ATTEND Family Medicine
PROC: 5A1D70Z Performance of Urinary Filtration, Intermittent, Less than 6 Hours Per Day (ICD-10-PCS; principal; 2022-04-05)
PROC: 0W9G30Z Drainage of Peritoneal Cavity with Drainage Device, Percutaneous Approach (ICD-10-PCS; 2022-04-09)
DX: E87.5 Hyperkalemia (principal); N18.6 End stage renal disease; I13.2 Hypertensive heart and chronic kidney disease with heart failure and with stage 5 chronic kidney disease, or end stage renal disease; I50.32 Chronic diastolic (congestive) heart failure; K76.6 Portal hypertension; R18.8 Other ascites; E87.20 Acidosis, unspecified; I25.10 Atherosclerotic heart disease of native coronary artery without angina pectoris; I87.309 Chronic venous hypertension (idiopathic) without complications of unspecified lower extremity; K74.60 Unspecified cirrhosis of liver; I27.29 Other secondary pulmonary hypertension; K76.0 Fatty (change of) liver, not elsewhere classified; Z99.2 Dependence on renal dialysis; D63.1 Anemia in chronic kidney disease; E11.22 Type 2 diabetes mellitus with diabetic chronic kidney disease; E11.42 Type 2 diabetes mellitus with diabetic polyneuropathy; E11.649 Type 2 diabetes mellitus with hypoglycemia without coma; E78.1 Pure hyperglyceridemia; E78.5 Hyperlipidemia, unspecified; F41.9 Anxiety disorder, unspecified; F51.04 Psychophysiologic insomnia; K21.9 Gastro-esophageal reflux disease without esophagitis; G25.81 Restless legs syndrome; I07.1 Rheumatic tricuspid insufficiency; E88.9 Metabolic disorder, unspecified; I48.91 Unspecified atrial fibrillation; J44.9 Chronic obstructive pulmonary disease, unspecified; G51.0 Bell's palsy; R16.2 Hepatomegaly with splenomegaly, not elsewhere classified; K75.4 Autoimmune hepatitis; N25.0 Renal osteodystrophy; Z79.4 Long term (current) use of insulin; Z79.82 Long term (current) use of aspirin; Z79.899 Other long term (current) drug therapy; Z91.119 Patient's noncompliance with dietary regimen due to unspecified reason; Z95.2 Presence of prosthetic heart valve; Z98.42 Cataract extraction status, left eye; Z98.41 Cataract extraction status, right eye; Z96.1 Presence of intraocular lens; Z86.14 Personal history of Methicillin resistant Staphylococcus aureus infection; Z87.440 Personal history of urinary (tract) infections; Z87.01 Personal history of pneumonia (recurrent); Z88.5 Allergy status to narcotic agent; Z88.1 Allergy status to other antibiotic agents; Z88.8 Allergy status to other drugs, medicaments and biological substances; Z88.4 Allergy status to anesthetic agent; Z91.041 Radiographic dye allergy status
CPT/HCPCS: 36415; 49083; 71046; 76705; 80048; 80053; 82140; 82945; 83036; 83605; 83615; 83735; 84157; 84443; 84484; 85025; 85610; 85730; 87070; 87075; 87205; 87636; 89050; 90935; 93005; 94640; 96374; 96375; 99291

== ENCOUNTER 2022-05-13 09:08 | Inpatient (IN) | payer MEDICARE, OTHER ==
--- NOTE | 2022-05-13 10:03 | ED ---
Chest Pain HPI - General Chief Complaint: Chest Pain Stated Complaint: chest pain Time Seen by Provider: 05/13/22 09:15 Source: patient, EMS, RN notes reviewed Mode of arrival: EMS Limitations: no limitations - History of Present Illness Initial Comments: 56-year-old female presents emergency Department chief complaint chest pain. Patient states pain started during dialysis today. Patient did not complete her treatment. Patient states it's centralized sharp chest pain. Patient had prior mitral valve replacement she denies any blood thinners. Patient states she does feel short of breath.Patient has a history of CHF, COPD, diabetes hyperlipidemia hypertension no liver disease, Patient states pain has improved some. - Related Data Home Medications Medication Instructions Recorded Confirmed HYDROcodone/APAP 7.5-325MG [[place] 1 tab PO TID PRN 11/08/19 04/05/22 7.5-325] traMADol HCL [Ultram] 50 mg PO BID PRN 05/13/20 04/05/22 Omeprazole 20 mg PO HS 08/02/20 04/05/22 Lidocaine-Prilocaine Cream [[place] 1 applic TOPICAL TUTHSA PRN 06/18/21 04/05/22 Cream 2.5%/2.5%] Ondansetron [Zofran] 4 mg PO TID PRN 06/18/21 04/05/22 rOPINIRole HCL [Requip] 1 mg PO BID 06/18/21 04/05/22 Gabapentin [Neurontin] 100 mg PO TID 07/08/21 04/05/22 diazePAM [Valium] 5 mg PO HS 08/08/21 04/05/22 Furosemide [Lasix] 80 mg PO BID 09/26/21 04/05/22 Metoprolol Tartrate [Lopressor] 50 mg PO TID 12/13/21 04/05/22 Calcium Carbonate [Tums] 500 mg PO TID PRN 01/29/22 04/05/22 Melatonin 12 mg PO HS 01/29/22 04/05/22 Midodrine HCl [ProAmatine] 10 mg PO DAILY PRN 01/29/22 04/05/22 Sevelamer [Renvela] 3,200 mg PO TID-W/MEALS 01/29/22 04/05/22 Sevelamer [Renvela] 800 - 1,600 mg PO DAILY PRN 01/29/22 04/05/22 diazePAM [Valium] 5 mg PO DAILY PRN 01/29/22 04/05/22 INSULIN ASPART (NovoLOG) [NovoLOG 15 unit SQ TID-W/MEALS 03/27/22 04/05/22 (formulary)] Insulin Glargine,Hum.rec.anlog 45 units SQ HS 03/27/22 04/05/22 [Lantus Solostar Pen] cloNIDine HCL [Catapres] 0.1 mg PO TID PRN 03/27/22 04/05/22 Previous Rx's Medication Instructions Recorded Aspirin 325 mg PO DAILY 90 Days #90 tab 12/01/21 amLODIPine [Norvasc] 5 mg PO DAILY 30 Days #30 tab 12/01/21 Sildenafil [Revatio] 20 mg PO TID tab 03/28/22 Allergies Allergy/AdvReac Type Severity Reaction Status Date / Time hydromorphone [From Dilaudid] Allergy Swelling Verified 04/05/22 11:40 Anesthetics - Amide Type - AdvReac cardiac Verified 04/05/22 11:40 Select A arrest Anesthetics - Julita Type- AdvReac cardiac Verified 04/05/22 11:40 Parabens arrest ciprofloxacin [From Cipro] AdvReac AFFECTED Verified 04/05/22 11:40 EYESIGHT ciprofloxacin HCl AdvReac AFFECTED Verified 04/05/22 11:40 [From Cipro] EYESIGHT Iodinated Contrast Media AdvReac RENAL Verified 04/05/22 11:40 FAILURE niacin AdvReac Dyspnea Verified 05/13/22 09:20 Review of Systems ROS Statement: Those systems with pertinent positive or pertinent negative responses have been documented in the HPI. ROS Other: All systems not noted in ROS Statement are negative. EKG Findings - EKG Comments: EKG Findings:: EKG performed at 9:24 sinus rhythm rate of 60 QRS 129 QT/QTC 466/466 - EKG Results: EKG: interpreted by PRAKASHD Past Medical History Past Medical History: Blood Disorder, Coronary Artery Disease (CAD), Chest Pain / Angina, Heart Failure, COPD, Diabetes Mellitus, Dialysis, Eye Disorder, Hyperlipidemia, Hypertension, Liver Disease, Pneumonia, Renal Disease Additional Past Medical History / Comment(s): IDDM type II, past DKA, L retinal hemorrhages, chronic kidney disease/ESRD with hemodialysis, mineral bone disease, portal htn with hepatosplenomegaly, ascities/paracentesises, fatty liver/cirrhosis, hypertriglyceridemia-induced acute pancreatitis, 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 History of Any Multi-Drug Resistant Organisms: MRSA Date of last positivie culture/infection: 08-02-20 MDRO Source:: Blood Past Surgical History: Cardiac Valve Replacement, Orthopedic Surgery, Uterine Ablation Additional Past Surgical History / Comment(s): Colonoscopy with polypectomy/biopsy, pancreatic resection at [facility] 2009, bone marrow biopsies X2, dialysis chest port X3 with removals, left arm shunt placement for dialysis and a revision done with shunt, left forearm vein revision, liver biopsy, mitral valve repacement 2019 at [facility],. paracentesis procedures, bilateral cataract removals/lens implants, then laser eye surgery to remove film on lenses, dental surgery. Past Anesthesia/Blood Transfusion Reactions: No Reported Reaction Additional Past Anesthesia/Blood Transfusion Reaction / Comment(s): Pt allergic to Amide type anesthesia/julita type parabins. Pt has received blood transfusions without reaction. Past Psychological History: Anxiety Smoking Status: Never smoker Past Alcohol Use History: None Reported Past Drug Use History: None Reported - Past Family History Brother(s) Family Medical History: No Reported History Mother Family Medical History: Cancer, Congestive Heart Failure (CHF), Diabetes Mellitus Additional Family Medical History / Comment(s): Throat cancer. Father Family Medical History: Hypertension Additional Family Medical History / Comment(s): Alcoholism. General Exam Limitations: no limitations General appearance: alert, in no apparent distress Head exam: Present: atraumatic, normocephalic, normal inspection Eye exam: Present: normal appearance, PERRL, EOMI. Absent: scleral icterus, conjunctival injection, periorbital swelling ENT exam: Present: normal exam, normal oropharynx, mucous membranes moist Neck exam: Present: normal inspection, full ROM. Absent: tenderness, meningismus, lymphadenopathy Respiratory exam: Present: normal lung sounds bilaterally. Absent: respiratory distress, wheezes, rales, rhonchi, stridor Cardiovascular Exam: Present: regular rate, normal rhythm, systolic murmur. Absent: normal heart sounds, diastolic murmur, rubs, gallop, clicks GI/Abdominal exam: Present: soft, distended, normal bowel sounds. Absent: tenderness, guarding, rebound, rigid Neurological exam: Present: alert Skin exam: Present: warm, dry, intact, normal color. Absent: rash Course Vital Signs 05/13/22 05/13/22 05/13/22 09:09 10:00 10:30 Temperature 98 F Pulse Rate 64 59 L 57 L Respiratory 17 19 22 Rate Blood Pressure 159/69 159/69 155/82 O2 Sat by Pulse 98 97 98 Oximetry 05/13/22 05/13/22 11:00 11:30 Temperature Pulse Rate 60 58 L Respiratory 14 16 Rate Blood Pressure 141/67 147/79 O2 Sat by Pulse 98 97 Oximetry Chest Pain MDM - MDM Was pt. sent in by a medical professional or institution? @ -Dialysis center Did you speak to anyone other than the patient for history? @ -EMS provided prehospital care, vitals, medications and information from dialysis center Did you review nursing and triage notes? @ -agree and reviewed Were old charts reviewed? @ -no Differential Diagnosis? @ -CHF, ACS, pneumonia,Differential Chest Pain: Stable Angina, Unstable Angina, STEMI, NSTEMI Aortic Dissection, Pneumothorax, Musculoskeletal, Esophageal Spasm GERD, Cholecystitis, Pancreatitis, Zoster, this is not meant to be an all-inclusive list. EKG interpreted by me (3pts min.)? @ -Above X-rays interpreted by me (1pt min.)? @ -Chest x-ray shows evidence of fluid overload, pulmonary congestion CT interpreted by me (1pt min.)? @ -no U/S interpreted by me (1pt. min.)? @ -no What testing was considered but not performed? (CT, X-rays, U/S, labs)? Why? @ no What meds were considered but not given? Why? @ -no Did you discuss the management of the patient with other professionals? @ - Prop [employer] Sc[employer] Dr. Magana Did you reconcile home meds? @ -yes Was smoking cessation discussed for >3mins.? @ -[none] Was critical care preformed (if so, how long)? @ -[none] Were there social determinants of health that impacted care today? How? (Homelessness, low income, unemployed, alcoholism, drug addiction, transportation, low edu. Level, literacy, decrease access to med. care, group home, rehab)? @ -no Was there de-escalation of care discussed even if they declined? (Discuss DNR or withdrawal of care, Hospice)? @ -[Discuss DNR or withdrawal of care, Hospice?] What co-morbidities impacted this encounter? (DM, HTN, Smoking, COPD, CAD, Cancer, CVA, Hep., AIDS, mental health diagnosis, sleep apnea, morbid obesity)? @ -[DM, HTN, CAD, Was patient admitted / discharged? @ -Admitted Undiagnosed new problem with uncertain prognosis? @ -no Drug Therapy requiring intensive monitoring for toxicity (Heparin, Nitro, Insulin, Cardizem)? @ -no Were any procedures done? @ -no Diagnosis/symptom? @ -Chest pain Acute, or Chronic, or Acute on Chronic? @ -acute Uncomplicated (without systemic symptoms) or Complicated (systemic symptoms)? @ -Uncomplicated Side effects of treatment? @ -no Exacerbation, Progression, or Severe Exacerbation] @ -[no] Poses a threat to life or bodily function? @ -[no] Diagnosis/symptom? @ -Pulmonary edema Acute, or Chronic, or Acute on Chronic? @ -[acute Uncomplicated (without systemic symptoms) or Complicated (systemic symptoms)? @ -Complicated by history of renal failure on dialysis Side effects of treatment? @ -no Exacerbation, Progression, or Severe Exacerbation] @ -no Poses a threat to life or bodily function? @ -no Disposition Clinical Impression: Acute renal failure on dialysis, Pulmonary edema, Chest pain Disposition: ADMITTED IP TO THIS [facility] Condition: Fair Referrals: David Bragg MD [Primary Care Provider] - 1-2 days Time of Disposition: 11:15
--- NOTE | 2022-05-13 10:11 | XR ---
EXAMINATION TYPE: XR chest 2V DATE OF EXAM: 05/13/2022 COMPARISON: Chest x-ray April 05, 2022 HISTORY: Chest pain. TECHNIQUE: Frontal and lateral views of the chest are obtained. FINDINGS: Overlying sternal wires along with metallic cardiac valve are redemonstrated. Diminished in spiration current study with more prominent cardiomegaly and mild to moderate central vascular conges tion. No pleural effusion or pneumothorax seen bilaterally. The osseous structures are intact. Stent graft in the left subclavian region redemonstrated. IMPRESSION: Mild cardiomegaly with mild to moderate central vascular congestion suspicious for CHF e xacerbation. Correlate clinically.
[2022-05-13 10:22] LABS: Calcium 8.4 mg/dL (8.4-10.2); Magnesium 1.6 mg/dL (1.6-2.3); Phosphorus 3.9 mg/dL (2.5-4.5); Potassium 3.3 mmol/L (3.5-5.1); Total Bilirubin 0.9 mg/dL (0.2-1.3); Total Protein 6.4 g/dL (6.3-8.2)
[2022-05-13 10:23] LABS: Anisocytosis Slight; Basophils % (A) 1 %; Eosinophils % (A) 2 %; HCT 26.7 % (34.0-46.0); HGB 8.9 gm/dL (11.4-16.0); Hypochromasia Slight; Lymphocytes # (A) 0.3 k/uL (1.0-4.8); Lymphocytes % (A) 15 %; MCHC 33.3 g/dL (31.0-37.0); Mean Platelet Volume 9.1; Monocytes # (A) 0.1 k/uL (0-1.0); Monocytes % (A) 6 %; Neutrophils # (A) 1.7 k/uL (1.3-7.7); Neutrophils % (A) 75 %; Platelet Count 100 k/uL (150-450); RBC 2.97 m/uL (3.80-5.40); RDW 16.2 % (11.5-15.5); WBC 2.2 k/uL (3.8-10.6)
[2022-05-13 10:27] LABS: Partial Thromboplastin Time 24.6 sec (22.0-30.0); Prothrombin Time 10.8 sec (9.0-12.0)
[2022-05-13] MEDS ORDERED: NITROGLYCERIN SL TABS 0.4 MG TAB SUBLINGUAL PRN (11:43)
[2022-05-13] MEDS ORDERED: ASPIRIN 81 MG PO STA (11:43)
[2022-05-13] MEDS ORDERED: CALCIUM CARBONATE 500 MG CHEWABLE PO PRN (13:25)
[2022-05-13] MEDS ORDERED: MIDODRINE 5 MG TAB PO PRN (13:25)
[2022-05-13] MEDS ORDERED: ONDANSETRON 4 MG TAB PO PRN (13:25)
[2022-05-13] MEDS ORDERED: SEVELAMER 800 MG TAB PO PRN (13:25)
[2022-05-13] MEDS ORDERED: diazePAM 5 MG TAB PO PRN (13:25)
[2022-05-13] MEDS ORDERED: traMADol 50 MG TAB PO PRN (13:25)
[2022-05-13] MEDS ORDERED: LIDOCAINE-PRILOCAINE 2.5-2.5% CREAM 5 GM TUBE TOPICAL PRN (13:25)
[2022-05-13] MEDS: HYDROcodone/APAP 7.5-325MG 1 EACH TAB PO PRN ×2 (13:45→21:37)
[2022-05-13] MEDS: METOPROLOL TARTRATE 50 MG TAB PO SCH ×2 (16:06→21:34)
[2022-05-13] MEDS: GABAPENTIN 100 MG CAP PO SCH ×2 (16:06→21:34)
[2022-05-13] MEDS: FUROSEMIDE 80 MG TAB PO SCH (16:06)
[2022-05-13] MEDS: SILDENAFIL 20 MG TAB PO SCH ×2 (16:07→23:17)
[2022-05-13] MEDS: cloNIDine HCL 0.1 MG TAB PO SCH ×2 (16:07→21:34)
[2022-05-13 17:33] LABS: Glucose,Whole Blood 204 mg/dL (70-110)
[2022-05-13] MEDS: INSULIN ASPART (NovoLOG) 100 UNIT/ML VIAL SQ SCH (17:35)
[2022-05-13] MEDS: SEVELAMER 800 MG TAB PO SCH (17:35)
[2022-05-13] MEDS: diazePAM 5 MG TAB PO SCH (20:46)
[2022-05-13] MEDS: PANTOPRAZOLE 40 MG TABLET PO SCH (20:46)
[2022-05-13] MEDS ORDERED: MELATONIN 3 MG TABLET PO PRN (21:00)
[2022-05-13] MEDS: INSULIN DETEMIR (LEVEMIR) 100 UNIT/ML SYR SQ SCH (21:34)
[2022-05-13] MEDS ORDERED: Potassium Replacement Protocol 1 EACH MISC MISCELLANE PRN (22:43)
[2022-05-13] MEDS: POTASSIUM CHLORIDE ER 20 MEQ TAB.ER PO SCH ×2 (23:13→23:17)
--- NOTE | 2022-05-14 00:39 | HP ---
HISTORY AND PHYSICAL SUBJECTIVE: A 56-year-old white female came to the hospital after missing dialysis with chest pain, abdominal swelling and distention, leg swelling and edema. She will possibly need a paracentesis done. Prior mitral valve replacement, CHF, COPD, diabetes, end-stage renal disease, liver disease, and hypertension. MEDICINES: At home, 1. [place] 7.5 t.i.d. 2. Tramadol 50 b.i.d. 3. Omeprazole 20 daily. 4. Zofran 4 mg t.i.d. 5. Requip 1 mg b.i.d. 6. Neurontin 100 t.i.d. 7. Valium 5 mg at night. 8. Lasix 80 b.i.d. 9. Lopressor 50 t.i.d. 10.Renvela 3200 mg t.i.d. 11.Melatonin 12 mg at night. 12.Valium 5 mg daily. 13.NovoLog 15 a.c. t.i.d. 14.Lantus 45 units daily. PAST MEDICAL HISTORY: Coronary artery disease, chest pain, angina, heart failure, COPD, diabetes mellitus, dyslipidemia, hypertension, liver disease, renal disease, fatty liver. FAMILY HISTORY: See old chart. OBJECTIVE: VITAL SIGNS: Reviewed. CARDIOVASCULAR: S1, S2. ABDOMEN: Soft, nontender, distended abdomen. CARDIOVASCULAR: S1, S2. LUNGS: Wheezes x4. PSYCH : Poor mood and affect. HEMATOLOGIC: 2 to 3+ edema stasis changes. ASSESSMENT: End-stage renal disease, ascites, congestive heart failure, diabetes mellitus, hypertension, ascites, liver failure, cirrhosis, autoimmune cirrhosis causing third- spacing fluid as well as missing dialysis. Continue with paracentesis, dialysis. Prognosis guarded. Please see further orders. MMODL / IJN: [id number] /
--- NOTE | 2022-05-14 02:59 | US ---
EXAMINATION TYPE: US abdomen limited DATE OF EXAM: 05/13/2022 COMPARISON: 04/07/22 CLINICAL HISTORY: ascites. ascites check. Last para 04/09/22 moderate to severe amount of ascites seen in all 4 quadrants. IMPRESSION: There is large amount of abdominal ascites fluid similar to old exam.
[2022-05-14 03:45] LABS: INR 1.1 (<1.2); Prothrombin Time 11.8 sec (9.0-12.0)
[2022-05-14 05:32] LABS: Glucose,Whole Blood 155 mg/dL (70-110)
[2022-05-14] MEDS: METOPROLOL TARTRATE 50 MG TAB PO SCH ×3 (08:36→21:31)
[2022-05-14] MEDS: GABAPENTIN 100 MG CAP PO SCH ×3 (08:36→21:31)
[2022-05-14] MEDS: cloNIDine HCL 0.1 MG TAB PO SCH ×3 (08:36→21:39)
[2022-05-14] MEDS: amLODIPine 5 MG TAB PO SCH (08:36)
[2022-05-14] MEDS: INSULIN ASPART (NovoLOG) 100 UNIT/ML VIAL SQ SCH ×3 (08:36→17:58)
[2022-05-14] MEDS: SEVELAMER 800 MG TAB PO SCH ×3 (08:36→17:58)
[2022-05-14] MEDS: SILDENAFIL 20 MG TAB PO SCH ×3 (08:37→21:30)
[2022-05-14] MEDS: SODIUM ZIRCONIUM CYCLOSILICATE 10 GM PACKET PO SCH (08:38)
[2022-05-14 08:51] LABS: Chol/HDL Ratio 3.99 Ratio; LDL Cholesterol,Calculated 69.5 mg/dL (0.0-131.0)
[2022-05-14] MEDS ORDERED: ASPIRIN 325 MG TAB PO SCH ×2 (09:00)
[2022-05-14] MEDS: FUROSEMIDE 80 MG TAB PO SCH ×2 (10:22→17:58)
--- NOTE | 2022-05-14 11:52 | P.CRDCN ---
History of Present Illness Consult date: 05/14/22 History of present illness: HISTORY OF PRESENT ILLNESS: This is a 56 year old female with a past medical history significant for end- stage renal disease on hemodialysis, infective endocarditis status post mitral valve repair in March 2020, hypertension, hyperlipidemia, diabetes, liver disease, ascites requiring paracentesis, pulmonary hypertension, severe tricuspid regurgitation, chronic pancreatitis status post partial pancreatectomy and congestive heart failure. Patient follows in the office with Dr. Tesfaye. We have been asked to see the patient in consultation for chest pain. Patient examined at the bedside. Patient presented to the hospital secondary to increased fluid retention. She reports she has been compliant with hemodialysis but the fluid seems to be getting worse. She states 3L were removed at her last dialysis session. She reports a lot of abdominal fluid as well as lower extremity edema. She states this has been going on since . She denies any chest pain or pressure. Denies SOB. * EKG reveals second degree type I (wenckebach) heart block. Telemetry appears to be sinus mechanism. No atrial fibrillation noted. * Chest xray mild cardiomegaly with [id number] central venous congestion suspicious for CHF exacerbation * Laboratory data: WBC 2.2. Hemoglobin 8.9. Platelet count 100. Sodium 137. Potassium 3.3. BUN 51. Creatinine 6.66. Troponin 0.026. 0.035. 0.033. ProBNP 33,000 * Current home cardiac medications include aspirin 325 mg daily, Lasix 80 mg twice a day, metoprolol titrate 50 mg 3 times a day, amlodipine 5 mg daily, clonidine 0.1 mg 3 times a day * Most recent echocardiogram obtained in March 2022 revealed ejection fraction 55-60%, left atrial enlargement, moderate pulmonary hypertension, moderate tricuspid regurgitation, mild aortic stenosis, mechanical valve in the mitral position with mild regurgitation. * Patient underwent TK in June 2020 revealing mildly impaired LV function with ejection fraction 40-45%, normally functioning bioprosthetic mitral valve and possible vegetation of the lateral wall of LV. The patient was transferred to [facility] at that time for further evaluation and was told that this was scar tissue and not recurrent endocarditis. * Cardiac catheterization history: 2019 revealing normal coronary arteries REVIEW OF SYSTEMS: At the time of my exam: CONSTITUTIONAL: Denies fever or chills. HEENT: Denies blurred vision, vision changes, or eye pain. Denies hemoptysis CARDIOVASCULAR: Denies chest pain. Denies orthopnea. Denies PND. Denies palpitations RESPIRATORY: Denies shortness of breath. GASTROINTESTINAL: Denies abdominal pain. Denies nausea or vomiting. HEMATOLOGIC: Denies bleeding disorders. GENITOURINARY: Denies any blood in urine. SKIN: Denies pruitis. Denies rash. PHYSICAL EXAM: VITAL SIGNS: Reviewed. GENERAL: Well-developed in no acute distress. HEENT: Head is normocephalic. Pupils are equal, round. Sclerae anicteric. Mucous membranes of the mouth are moist. Neck supple. No JVD or thyromegaly LUNGS: Respirations even and unlabored. Lungs essentially clear to auscultation bilaterally. HEART: Regular rate and rhythm. S1 and S2 heard. Systolic murmur noted. ABDOMEN: Distended. Extensive abdominal ascites noted. EXTREMITIES: Normal range of motion. No clubbing or cyanosis. Peripheral pulses intact. 3-4+ bilateral lower extremity edema, extending into the thighs NEUROLOGIC: Awake and alert. Oriented x 3. ASSESSMENT: Chest pain, troponin negative x 3 Acute on chronic heart failure with preserved ejection fraction, most recent EF 55-60%, mostly right sided HF Anasarca End-stage renal disease on hemodialysis Pulmonary hypertension Severe tricuspid regurgitation Status post tissue mitral valve repair secondary to infective endocarditis, at [facility], 2019 Chronic liver disease Diabetes Hypertension Hyperlipidemia PLAN: An acute coronary event has been ruled out Resume home cardiac medications Continue HD per nephrology Patient with significant ascites. Interventional radiology has been consulted f or paracentesis After patient has been diuresed, will obtain repeat echo to assess severity of tricuspid regurgitation Further recommendations pending patient course Nurse practitioner note has been reviewed by physician. Signing provider agrees with the documented findings, assessment, and plan of care. 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 History of Any Multi-Drug Resistant Organisms: MRSA Date of last positivie culture/infection: 08-02-20 MDRO Source:: Blood Past Surgical History: Cardiac Valve Replacement, Orthopedic Surgery, Uterine Ablation Additional Past Surgical History / Comment(s): Colonoscopy with polypectomy/biopsy, pancreatic resection at [facility] 2009, bone marrow biopsies X2, dialysis chest port X3 with removals, left arm shunt placement for dialysis and a revision done with shunt, left forearm vein revision, liver biopsy, mitral valve repacement 2019 at [facility] ,. paracentesis procedures, bilateral cataract removals/lens implants, then laser eye surgery to remove film on lenses, dental surgery. Past Anesthesia/Blood Transfusion Reactions: No Reported Reaction Additional Past Anesthesia/Blood Transfusion Reaction / Comment(s): Pt allergic to Amide type anesthesia/andree type parabins. Pt has received blood transfusions without reaction. Smoking Status: Never smoker - Past Family History Brother(s) Family Medical History: No Reported History Mother Family Medical History: Cancer, Congestive Heart Failure (CHF), Diabetes Mellitus Additional Family Medical History / Comment(s): Throat cancer. Father Family Medical History: Hypertension Additional Family Medical History / Comment(s): Alcoholism. Medications and Allergies Home Medications Medication Instructions Recorded Confirmed Type HYDROcodone/APAP 7.5-325MG [[place] 1 tab PO TID PRN 11/08/19 05/13/22 History 7.5-325] traMADol HCL [Ultram] 50 mg PO BID PRN 05/13/20 05/13/22 History Omeprazole 20 mg PO HS 08/02/20 05/13/22 History Lidocaine-Prilocaine Cream [Emla 1 applic TOPICAL TUTHSA PRN 06/18/21 05/13/22 History Cream 2.5%/2.5%] Ondansetron [Zofran] 4 mg PO TID PRN 06/18/21 05/13/22 History rOPINIRole HCL [Requip] 1 mg PO BID 06/18/21 05/13/22 History Gabapentin [Neurontin] 100 mg PO TID 07/08/21 05/13/22 History diazePAM [Valium] 5 mg PO HS 08/08/21 05/13/22 History Furosemide [Lasix] 80 mg PO BID 09/26/21 05/13/22 History Aspirin 325 mg PO DAILY 90 Days #90 tab 12/01/21 05/13/22 Rx amLODIPine [Norvasc] 5 mg PO DAILY 30 Days #30 tab 12/01/21 05/13/22 Rx Metoprolol Tartrate [Lopressor] 50 mg PO TID 12/13/21 05/13/22 History Calcium Carbonate [Tums] 500 mg PO TID PRN 01/29/22 05/13/22 History Melatonin 12 mg PO HS PRN 01/29/22 05/13/22 History Midodrine HCl [ProAmatine] 10 mg PO TUTHSA PRN 01/29/22 05/13/22 History Sevelamer [Renvela] 3,200 mg PO TID-W/MEALS 01/29/22 05/13/22 History Sevelamer [Renvela] 800 - 1,600 mg PO DAILY PRN 01/29/22 05/13/22 History diazePAM [Valium] 5 mg PO DAILY PRN 01/29/22 05/13/22 History INSULIN ASPART (NovoLOG) [NovoLOG 15 unit SQ TID-W/MEALS 03/27/22 05/13/22 History (formulary)] Insulin Glargine,Hum.rec.anlog 45 units SQ HS 03/27/22 05/13/22 History [Lantus Solostar Pen] cloNIDine HCL [Catapres] 0.1 mg PO TID 03/27/22 05/13/22 History Sildenafil [Revatio] 20 mg PO TID tab 03/28/22 05/13/22 Rx Sodium Zirconium Cyclosilicate 10 gm PO SUMOWEFR 05/13/22 05/13/22 History [Lokelma] Allergies Allergy/AdvReac Type Severity Reaction Status Date / Time hydromorphone [From Dilaudid] Allergy Swelling Verified 05/13/22 12:16 Anesthetics - Amide Type - AdvReac cardiac Verified 05/13/22 12:16 Select A arrest Anesthetics - Andree Type- AdvReac cardiac Verified 05/13/22 12:16 Parabens arrest ciprofloxacin [From Cipro] AdvReac AFFECTED Verified 05/13/22 12:16 EYESIGHT ciprofloxacin HCl AdvReac AFFECTED Verified 05/13/22 12:16 [From Cipro] EYESIGHT Iodinated Contrast Media AdvReac RENAL Verified 05/13/22 12:16 FAILURE niacin AdvReac Dyspnea Verified 05/13/22 12:16 Physical Exam Vitals: Vital Signs Temp Pulse Pulse Resp BP BP Pulse Ox 05/14/22 07:57 97.7 F 61 20 156/84 98 05/14/22 02:38 97.5 F L 57 L 18 155/69 95 05/14/22 02:00 18 05/13/22 23:10 98.2 F 60 19 154/70 98 05/13/22 20:44 54 L 16 122/80 97 05/13/22 18:00 64 14 158/81 95 05/13/22 17:00 61 16 168/78 99 05/13/22 16:00 70 17 168/78 96 05/13/22 15:00 69 21 133/71 95 05/13/22 14:00 73 22 137/75 97 05/13/22 13:00 64 21 151/75 97 05/13/22 12:00 72 22 154/85 96 Intake and Output 05/13/22 05/14/22 05/14/22 22:59 06:59 14:59 Other: # Voids 1 Weight 81.647 kg 84.6 kg Results 05/13/22 09:51 05/13/22 09:51 Cardiac Enzymes 05/13/22 05/13/22 Range/Units 12:44 17:36 Troponin I 0.035 H* 0.033 (0.000-0.034) ng/mL Coagulation 05/14/22 Range/Units 00:32 PT 11.8 (9.0-12.0) sec Lipids 05/14/22 Range/Units 05:43 Triglycerides 136.00 (0.00-149.00) mg/dL Cholesterol 129.00 (0.00-200.00) mg/dL HDL Cholesterol 32.30 L (40.00-60.00) mg/dL Cholesterol/HDL Ratio 3.99 Ratio Current Medications Generic Name Dose Route Start Last Admin Trade Name Freq PRN Reason Stop Dose Admin Hydrocodone Bitart/Acetaminophen 1 each 05/13/22 13:25 05/13/22 21:37 Hydrocodone/Apap 7.5-325mg 1 Each Tab PO 1 each TID PRN Administration Pain Amlodipine Besylate 5 mg 05/14/22 09:00 05/14/22 08:36 Amlodipine 5 Mg Tab PO 5 mg DAILY ANNI Administration Aspirin 81 mg 05/14/22 09:00 Aspirin 81 Mg PO DAILY ANNI Calcium Carbonate/Glycine 500 mg 05/13/22 13:25 Calcium Carbonate 500 Mg Chewable PO TID PRN GI Upset Clonidine 0.1 mg 05/13/22 16:00 05/14/22 08:36 Clonidine Hcl 0.1 Mg Tab PO 0.1 mg TID ANNI Administration Diazepam 5 mg 05/13/22 13:25 Diazepam 5 Mg Tab PO DAILY PRN Anxiety Diazepam 5 mg 05/13/22 21:00 05/13/22 20:46 Diazepam 5 Mg Tab PO 5 mg HS ANNI Administration Furosemide 80 mg 05/13/22 16:00 05/14/22 10:22 Furosemide 80 Mg Tab PO 80 mg BID@0900,1600 ANNI Administration Gabapentin 100 mg 05/13/22 16:00 05/14/22 08:36 Gabapentin 100 Mg Cap PO 100 mg TID ANNI Administration Insulin Aspart 15 unit 05/13/22 17:30 05/14/22 08:36 Insulin Aspart (Novolog) 100 Unit/Ml Vial SQ 15 unit TID-W/MEALS [facility] Administration Insulin Detemir 45 unit 05/13/22 21:00 05/13/22 21:34 Insulin Detemir (Levemir) 100 Unit/Ml Syr SQ 45 unit HS [facility] Administration Lidocaine/Prilocaine 1 applic 05/13/22 13:25 Lidocaine-Prilocaine 2.5-2.5% Cream 5 Gm Tube TOPICAL TUTHSA PRN AVF access Dialysis Protocol Melatonin 12 mg 05/13/22 21:00 Melatonin 3 Mg Tablet PO HS PRN Insomnia Metoprolol Tartrate 50 mg 05/13/22 16:00 05/14/22 08:36 Metoprolol Tartrate 50 Mg Tab PO 50 mg TID ANNI Administration Midodrine 10 mg 05/13/22 13:25 Midodrine 5 Mg Tab PO TUTHSA PRN Low bp @dialysis Miscellaneous Information 1 each 05/13/22 22:43 Potassium Replacement Protocol 1 Each Misc MISCELLANE DAILY PRN Per Protocol Protocol Nitroglycerin 0.4 mg 05/13/22 11:43 Nitroglycerin Sl Tabs 0.4 Mg Tab SUBLINGUAL Q5M PRN Chest Pain Ondansetron HCl 4 mg 05/13/22 13:25 Ondansetron 4 Mg Tab PO TID PRN Nausea Pantoprazole Sodium 40 mg 05/13/22 21:00 05/13/22 20:46 Pantoprazole 40 Mg Tablet PO 40 mg HS ANNI Administration Ropinirole HCl 1 mg 05/13/22 21:00 05/14/22 08:36 Ropinirole Hcl 1 Mg Tab PO 1 mg BID ANNI Administration Sevelamer Carbonate 3,200 mg 05/13/22 17:30 05/14/22 08:36 Sevelamer 800 Mg Tab PO 3,200 mg TID-W/MEALS ANNI Administration Sevelamer Carbonate 800 mg 05/13/22 13:25 Sevelamer 800 Mg Tab PO DAILY PRN WITH SNACK Sildenafil Citrate 20 mg 05/13/22 16:00 05/14/22 08:37 Sildenafil 20 Mg Tab PO 20 mg TID ANNI Administration Sodium Zirconium Cyclosilicate 10 gm 05/14/22 09:00 05/14/22 08:38 Sodium Zirconium Cyclosilicate 10 Gm Packet PO 10 gm SUMOWEFR ANNI Administration Tramadol HCl 50 mg 05/13/22 13:25 Tramadol 50 Mg Tab PO BID PRN Pain Intake and Output 05/13/22 05/14/22 05/14/22 22:59 06:59 14:59 Other: # Voids 1 Weight 81.647 kg 84.6 kg 05/13/22 09:51 05/13/22 09:51
[2022-05-14 12:12] LABS: Glucose,Whole Blood 62 mg/dL (70-110)
[2022-05-14 12:28] LABS: Glucose,Whole Blood 73 mg/dL (70-110)
--- NOTE | 2022-05-14 13:05 | P.NPCON ---
History of Present Illness - Reason for Consult chronic renal failure, end stage renal disease - History of Present Illness Patient is a 56-year-old female with end-stage renal disease on hemodialysis on a Thursday schedule. Patient stated that she had missed her hemodialysis treatment last week. She is admitted to the hospital with complaints of increased abdominal distention. No significant shortness of breath today. Patient also states that she has not had a paracentesis for over a month now. No history of fever chills nausea vomiting or abdominal pain. Patient states she did have a full treatment of hemodialysis yesterday. She had 3 L of ultrafiltration. Review of Systems As per HPI Past Medical History Past Medical History: Blood Disorder, Coronary Artery Disease (CAD), Chest Pain / Angina, Heart Failure, COPD, Diabetes Mellitus, Dialysis, Eye Disorder, Hyperlipidemia, Hypertension, Liver Disease, Pneumonia, Renal Disease, Vascular Disorder Additional Past Medical History / Comment(s): IDDM type II, past DKA, L retinal hemorrhages, chronic kidney disease/ESRD with hemodialysis, mineral bone disease, portal htn with hepatosplenomegaly, ascities/paracentesises, fatty live r/cirrhosis, hypertriglyceridemia-induced acute pancreatitis, then necrotizing pancreatitis with surgery, infectious myocarditis/endocarditis/mitral valve replaced, pulmonary HTN, UTI, chronic anemia, frequent body cramping, occasional low back pain, carter's palsy X2, past L leg fx, RLS, insomnia, current L lower leg wound nearly healed, chronic venous hypertension, 12/2021 covid. History of Any Multi-Drug Resistant Organisms: MRSA Date of last positivie culture/infection: 08-02-20 MDRO Source:: Blood Past Surgical History: Cardiac Valve Replacement, Orthopedic Surgery, Uterine Ablation Additional Past Surgical History / Comment(s): Colonoscopy with polypectomy/biopsy, pancreatic resection at [facility] 2009, bone marrow biopsies X2, dialysis chest port X3 with removals, left arm shunt placement for dialysis and a revision done with shunt, left forearm vein revision, liver biopsy, mitral valve repacement 2019 at [facility],. paracentesis procedures, bilateral cataract removals/lens implants, then laser eye surgery to remove film on lenses, dental surgery. Past Anesthesia/Blood Transfusion Reactions: No Reported Reaction Additional Past Anesthesia/Blood Transfusion Reaction / Comment(s): Pt allergic to Amide type anesthesia/andree type parabins. Pt has received blood transfusions without reaction. Smoking Status: Never smoker - Past Family History Brother(s) Family Medical History: No Reported History Mother Family Medical History: Cancer, Congestive Heart Failure (CHF), Diabetes Mellit us Additional Family Medical History / Comment(s): Throat cancer. Father Family Medical History: Hypertension Additional Family Medical History / Comment(s): Alcoholism. Medications and Allergies Home Medications Medication Instructions Recorded Confirmed Type HYDROcodone/APAP 7.5-325MG [[place] 1 tab PO TID PRN 11/08/19 05/13/22 History 7.5-325] traMADol HCL [Ultram] 50 mg PO BID PRN 05/13/20 05/13/22 History Omeprazole 20 mg PO HS 08/02/20 05/13/22 History Lidocaine-Prilocaine Cream [Emla 1 applic TOPICAL TUTHSA PRN 06/18/21 05/13/22 History Cream 2.5%/2.5%] Ondansetron [Zofran] 4 mg PO TID PRN 06/18/21 05/13/22 History rOPINIRole HCL [Requip] 1 mg PO BID 06/18/21 05/13/22 History Gabapentin [Neurontin] 100 mg PO TID 07/08/21 05/13/22 History diazePAM [Valium] 5 mg PO HS 08/08/21 05/13/22 History Furosemide [Lasix] 80 mg PO BID 09/26/21 05/13/22 History Aspirin 325 mg PO DAILY 90 Days #90 tab 12/01/21 05/13/22 Rx amLODIPine [Norvasc] 5 mg PO DAILY 30 Days #30 tab 12/01/21 05/13/22 Rx Metoprolol Tartrate [Lopressor] 50 mg PO TID 12/13/21 05/13/22 History Calcium Carbonate [Tums] 500 mg PO TID PRN 01/29/22 05/13/22 History Melatonin 12 mg PO HS PRN 01/29/22 05/13/22 History Midodrine HCl [ProAmatine] 10 mg PO TUTHSA PRN 01/29/22 05/13/22 History Sevelamer [Renvela] 3,200 mg PO TID-W/MEALS 01/29/22 05/13/22 History Sevelamer [Renvela] 800 - 1,600 mg PO DAILY PRN 01/29/22 05/13/22 History diazePAM [Valium] 5 mg PO DAILY PRN 01/29/22 05/13/22 History INSULIN ASPART (NovoLOG) [NovoLOG 15 unit SQ TID-W/MEALS 03/27/22 05/13/22 History (formulary)] Insulin Glargine,Hum.rec.anlog 45 units SQ HS 03/27/22 05/13/22 History [Lantus Solostar Pen] cloNIDine HCL [Catapres] 0.1 mg PO TID 03/27/22 05/13/22 History Sildenafil [Revatio] 20 mg PO TID tab 03/28/22 05/13/22 Rx Sodium Zirconium Cyclosilicate 10 gm PO SUMOWEFR 05/13/22 05/13/22 History [Lokelma] Allergies Allergy/AdvReac Type Severity Reaction Status Date / Time hydromorphone [From Dilaudid] Allergy Swelling Verified 05/13/22 12:16 Anesthetics - Amide Type - AdvReac cardiac Verified 05/13/22 12:16 Select A arrest Anesthetics - Andree Type- AdvReac cardiac Verified 05/13/22 12:16 Parabens arrest ciprofloxacin [From Cipro] AdvReac AFFECTED Verified 05/13/22 12:16 EYESIGHT ciprofloxacin HCl AdvReac AFFECTED Verified 05/13/22 12:16 [From Cipro] EYESIGHT Iodinated Contrast Media AdvReac RENAL Verified 05/13/22 12:16 FAILURE niacin AdvReac Dyspnea Verified 05/13/22 12:16 Physical Exam Vitals: Vital Signs Temp Pulse Pulse Resp BP BP Pulse Ox 05/14/22 07:57 97.7 F 61 20 156/84 98 05/14/22 02:38 97.5 F L 57 L 18 155/69 95 05/14/22 02:00 18 05/13/22 23:10 98.2 F 60 19 154/70 98 05/13/22 20:44 54 L 16 122/80 97 05/13/22 18:00 64 14 158/81 95 05/13/22 17:00 61 16 168/78 99 05/13/22 16:00 70 17 168/78 96 05/13/22 15:00 69 21 133/71 95 05/13/22 14:00 73 22 137/75 97 Intake and Output 05/13/22 05/14/22 05/14/22 22:59 06:59 14:59 Other: # Voids 1 Weight 81.647 kg 84.6 kg Awake, alert and oriented 3 Examination of the heart S1 and S2 Examination of the lungs bilateral breath sounds are heard Abdomen is soft nontender, distended with ascites Examination of the lower extremities shows chronic skin changes with chronic edema 3-4+ bilaterally [employer] exam grossly intact Results - Lab Results Most recent lab results Calcium 8.4 mg/dL (8.4-10.2) 05/13/22 09:51 Phosphorus 3.9 mg/dL (2.5-4.5) 05/13/22 09:51 Magnesium 1.6 mg/dL (1.6-2.3) 05/13/22 09:51 05/13/22 09:51 05/13/22 09:51 Assessment and Plan Assessment: 1. End-stage renal disease on hemodialysis on a Thursday schedule 2. Volume overload 3. CK D mineral bone disorder 4. Recurrent ascites associated with underlying chronic liver disease and portal hypertension. Plan: Hemodialysis in a.m. and then repeat again on 05/16/2022 Resume phosphate binders Salt and fluid restriction reinforced
[2022-05-14] MEDS: HYDROcodone/APAP 7.5-325MG 1 EACH TAB PO PRN (13:07)
[2022-05-14] MEDS: ASPIRIN 81 MG PO SCH (16:18)
[2022-05-14 17:19] LABS: Glucose,Whole Blood 275 mg/dL (70-110)
--- NOTE | 2022-05-14 19:30 | PN ---
PROGRESS NOTE SUBJECTIVE: This white female came in with fluid overload, elevated BNP, and worsening renal function, missing dialysis as an outpatient. She had low potassium 3.3, temperature 97.7. Blood pressure 150s over 80s, 98 on room air. Abdomen is firm, ascitic wave. Ultrasound is pending. Paracentesis will have to be done due to autoimmune ascites secondary to which is making her renal function worse. We will have to do a paracentesis with Radiology consult. Continue current treatments. OBJECTIVE: CARDIOVASCULAR: S1, S2. LUNGS: Clear. GI: Soft. PSYCH: Fair mood and affect. ASSESSMENT: Autoimmune hepatitis with [id number] amount of ascites in all 4 quadrants. Paracentesis will be ordered. Continue with dialysis syndrome after a paracentesis and the patient can possibly be discharged. She will probably need outpatient paracentesis once a month as she is already on spironolactone and diuretics at this point. PROGNOSIS: Extremely guarded. MMODL / IJN: [id number] /
[2022-05-14 21:30] LABS: Glucose,Whole Blood 187 mg/dL (70-110)
[2022-05-14] MEDS: INSULIN DETEMIR (LEVEMIR) 100 UNIT/ML SYR SQ SCH (21:30)
[2022-05-14] MEDS: PANTOPRAZOLE 40 MG TABLET PO SCH (21:31)
[2022-05-14] MEDS: diazePAM 5 MG TAB PO SCH (21:31)
[2022-05-15] MEDS: HYDROcodone/APAP 7.5-325MG 1 EACH TAB PO PRN ×3 (01:56→23:13)
[2022-05-15 06:08] LABS: Glucose,Whole Blood 131 mg/dL (70-110)
[2022-05-15] MEDS: INSULIN ASPART (NovoLOG) 100 UNIT/ML VIAL SQ SCH ×3 (08:32→18:02)
[2022-05-15] MEDS: SILDENAFIL 20 MG TAB PO SCH ×3 (08:33→20:34)
[2022-05-15] MEDS: FUROSEMIDE 80 MG TAB PO SCH ×2 (08:33→16:42)
[2022-05-15] MEDS: SEVELAMER 800 MG TAB PO SCH ×3 (08:33→18:03)
[2022-05-15] MEDS: METOPROLOL TARTRATE 50 MG TAB PO SCH ×3 (08:34→20:34)
[2022-05-15] MEDS: ASPIRIN 81 MG PO SCH (08:34)
[2022-05-15] MEDS: amLODIPine 5 MG TAB PO SCH (08:34)
--- NOTE | 2022-05-15 09:47 | US ---
Ultrasound-guided paracentesis. DATE OF EXAM: 05/14/2022 CLINICAL HISTORY: Ascites The procedure was discussed with the patient. The risks, complications, benefits, and alternatives we re discussed and any questions were answered. Informed consent was obtained. The patient was placed s upine on the ultrasound table and prepped and draped in the usual sterile fashion. All elements of maximal barrier technique were utilized. Under ultrasound guidance, access into the left lower quadrant was obtained, via the paracentesis catheter system and direct ultrasound guidance . Approximately 4 liters of straw-colored fluid was removed. The patient was stable throughout the proc edure and remained stable upon discharge from Department of Radiology. IMPRESSION: Successful paracentesis under ultrasound guidance.
[2022-05-15 10:06] LABS: African American GFR (CKD) 5 (>60 ml/min/1.73 sqM); Anion Gap 13 mmol/L; Blood Urea Nitrogen 76 mg/dL (7-17); Calcium 9.1 mg/dL (8.4-10.2); Carbon Dioxide 27 mmol/L (22-30); Chloride 98 mmol/L (98-107); Glucose 69 mg/dL (74-99); Non-African American GFR(CKD) 4 (>60 ml/min/1.73 sqM); Potassium 4.3 mmol/L (3.5-5.1); Sodium 138 mmol/L (137-145)
[2022-05-15] MEDS: cloNIDine HCL 0.1 MG TAB PO SCH ×3 (10:07→20:34)
[2022-05-15] MEDS: GABAPENTIN 100 MG CAP PO SCH ×3 (10:07→20:34)
--- NOTE | 2022-05-15 10:59 | P.PN ---
Subjective Progress Note Date: 05/15/22 HISTORY OF PRESENT ILLNESS: This is a 56 year old female with a past medical history significant for end- stage renal disease on hemodialysis, infective endocarditis status post mitral valve repair in March 2020, hypertension, hyperlipidemia, diabetes, liver disease, ascites requiring paracentesis, pulmonary hypertension, severe tricuspid regurgitation, chronic pancreatitis status post partial pancreatectomy and congestive heart failure. Patient follows in the office with Dr. Tesfaye. We have been asked to see the patient in consultation for chest pain. Patient examined at the bedside. Patient presented to the hospital secondary to increased fluid retention. She reports she has been compliant with hemodialysis but the fluid seems to be getting worse. She states 3L were removed at her last dialysis session. She reports a lot of abdominal fluid as well as lower extremity edema. She states this has been going on since . She denies any chest pain or pressure. Denies SOB. * EKG reveals second degree type I (wenckebach) heart block. Telemetry appears to be sinus mechanism. No atrial fibrillation noted. * Chest xray mild cardiomegaly with [id number] central venous congestion suspicious for CHF exacerbation * Laboratory data: WBC 2.2. Hemoglobin 8.9. Platelet count 100. Sodium 137. Potassium 3.3. BUN 51. Creatinine 6.66. Troponin 0.026. 0.035. 0.033. ProBNP 33,000 * Current home cardiac medications include aspirin 325 mg daily, Lasix 80 mg t wice a day, metoprolol titrate 50 mg 3 times a day, amlodipine 5 mg daily, clonidine 0.1 mg 3 times a day * Most recent echocardiogram obtained in March 2022 revealed ejection fraction 55-60%, left atrial enlargement, moderate pulmonary hypertension, moderate tricuspid regurgitation, mild aortic stenosis, mechanical valve in the mitral position with mild regurgitation. * Patient underwent TK in June 2020 revealing mildly impaired LV function with ejection fraction 40-45%, normally functioning bioprosthetic mitral valve and possible vegetation of the lateral wall of LV. The patient was t ransferred to [facility] at that time for further evaluation and was told that this was scar tissue and not recurrent endocarditis. * Cardiac catheterization history: 2018 revealing normal coronary arteries 05/15/2022 Patient examined this morning at the bedside. Patient denies chest pain or pressure. She denies shortness of breath. She underwent paracentesis yesterday with removal of 4 L of fluid. She is currently receiving hemodialysis with a goal of 4 L to be removed. She continues to be fluid overloaded. Vital signs are stable. PHYSICAL EXAM: VITAL SIGNS: Reviewed. GENERAL: Well-developed in no acute distress. HEENT: Head is normocephalic. Pupils are equal, round. Sclerae anicteric. Mucous membranes of the mouth are moist. Neck supple. No JVD or thyromegaly LUNGS: Respirations even and unlabored. Lungs essentially clear to auscultation bilaterally. HEART: Regular rate and rhythm. S1 and S2 heard. Systolic murmur noted. ABDOMEN: Abdominal ascites noted. EXTREMITIES: Normal range of motion. No clubbing or cyanosis. Peripheral pulses intact. 3-4+ bilateral lower extremity edema, extending into the thighs NEUROLOGIC: Awake and alert. Oriented x 3. ASSESSMENT: Chest pain, troponin negative x 3 Acute on chronic heart failure with preserved ejection fraction, most recent EF 55-60%, mostly right sided HF Anasarca End-stage renal disease on hemodialysis Pulmonary hypertension Severe tricuspid regurgitation Status post tissue mitral valve repair secondary to infective endocarditis, [facility] Chronic liver disease Diabetes Hypertension Hyperlipidemia PLAN: Continue current cardiac medications Continue HD per nephrology. Patient still has significant fluid overload. Repeat echo to assess severity of tricuspid regurgitation Further recommendations pending patient course Nurse practitioner note has been reviewed by physician. Signing provider agrees with the documented findings, assessment, and plan of care. Objective - Vital Signs Vital signs: Vital Signs Temp 98 F 05/15/22 07:43 Pulse 60 05/15/22 07:43 Resp 18 05/15/22 07:43 BP 140/69 05/15/22 10:07 Pulse Ox 99 05/15/22 07:43 FiO2 Intake & Output 05/14/22 05/15/22 05/15/22 18:59 06:59 18:59 Intake Total 118 Balance 118 Weight 83.6 kg Intake: Oral 118 Other: Voiding Method Toilet # Voids 1 1 - Labs CBC & Chem 7: 05/13/22 09:51 05/15/22 09:20 Labs: Abnormal Lab Results - Last 24 Hours (Table) 05/14/22 05/14/22 05/14/22 Range/Units 12:11 17:18 21:30 BUN (7-17) mg/dL Creatinine (0.52-1.04) mg/dL Glucose (74-99) mg/dL POC Glucose (mg/dL) 62 L 275 H 187 H (70-110) mg/dL 05/15/22 05/15/22 Range/Units 06:07 09:20 BUN 76 H (7-17) mg/dL Creatinine 9.57 H* (0.52-1.04) mg/dL Glucose 69 L (74-99) mg/dL POC Glucose (mg/dL) 131 H (70-110) mg/dL
[2022-05-15 11:55] LABS: Glucose,Whole Blood 85 mg/dL (70-110)
--- NOTE | 2022-05-15 15:05 | P.PN ---
Subjective Patient is seen for follow-up for end-stage renal disease. She is currently seen on hemodialysis Patient is tolerating her treatment fairly well. 4 L of ultrafiltration. Objective - Vital Signs Vital signs: Vital Signs Temp 97.8 F 05/15/22 13:27 Pulse 65 05/15/22 13:27 Resp 19 05/15/22 13:27 BP 138/69 05/15/22 13:27 Pulse Ox 100 05/15/22 12:48 FiO2 Intake & Output 05/14/22 05/15/22 05/15/22 18:59 06:59 18:59 Intake Total 118 420 Output Total 4800 Balance 118 -4380 Weight 83.6 kg Intake: Oral 118 120 Hemodialysis 300 Output: Hemodialysis 4800 Other: Voiding Method Toilet # Voids 1 1 4 - Exam Patient is awake, alert oriented 3 Not in any acute distress Examination of the heart S1 and S2 Examination of the lungs bilateral breath sounds are heard Abdomen is soft nontender, distended with ascites Examination lower extremity shows 3+ edema bilaterally ASSOCIATE RESEARCH SCIENTIST exam grossly intact - Labs CBC & Chem 7: 05/13/22 09:51 05/15/22 09:20 Labs: Abnormal Lab Results - Last 24 Hours (Table) 05/14/22 05/14/22 05/15/22 Range/Units 17:18 21:30 06:07 BUN (7-17) mg/dL Creatinine (0.52-1.04) mg/dL Glucose (74-99) mg/dL POC Glucose (mg/dL) 275 H 187 H 131 H (70-110) mg/dL 05/15/22 Range/Units 09:20 BUN 76 H (7-17) mg/dL Creatinine 9.57 H* (0.52-1.04) mg/dL Glucose 69 L (74-99) mg/dL POC Glucose (mg/dL) (70-110) mg/dL Assessment and Plan Assessment: 1. End-stage renal disease on hemodialysis on a Thursday schedule 2. Volume overload 3. CK D mineral bone disorder 4. Recurrent ascites associated with underlying chronic liver disease and portal hypertension. Plan: Hemodialysis in a.m. and then repeat again on 05/17/2022 Resume phosphate binders Salt and fluid restriction reinforced
[2022-05-15 17:28] LABS: Glucose,Whole Blood 229 mg/dL (70-110)
[2022-05-15 19:57] LABS: Glucose,Whole Blood 245 mg/dL (70-110)
[2022-05-15] MEDS: INSULIN DETEMIR (LEVEMIR) 100 UNIT/ML SYR SQ SCH (20:34)
[2022-05-15] MEDS: PANTOPRAZOLE 40 MG TABLET PO SCH (20:34)
[2022-05-15] MEDS: diazePAM 5 MG TAB PO SCH (20:34)
[2022-05-16 06:19] LABS: Glucose,Whole Blood 107 mg/dL (70-110)
[2022-05-16] MEDS: SODIUM ZIRCONIUM CYCLOSILICATE 10 GM PACKET PO SCH (08:40)
[2022-05-16] MEDS: FUROSEMIDE 80 MG TAB PO SCH ×2 (08:44→17:00)
[2022-05-16] MEDS: SEVELAMER 800 MG TAB PO SCH ×2 (08:44→13:23)
[2022-05-16] MEDS: amLODIPine 5 MG TAB PO SCH (08:44)
[2022-05-16] MEDS: SILDENAFIL 20 MG TAB PO SCH ×2 (08:44→17:00)
[2022-05-16] MEDS: METOPROLOL TARTRATE 50 MG TAB PO SCH ×2 (08:45→17:00)
[2022-05-16] MEDS: ASPIRIN 81 MG PO SCH (08:45)
[2022-05-16] MEDS: cloNIDine HCL 0.1 MG TAB PO SCH ×2 (08:45→17:00)
[2022-05-16] MEDS: GABAPENTIN 100 MG CAP PO SCH ×2 (08:45→17:00)
[2022-05-16] MEDS: INSULIN ASPART (NovoLOG) 100 UNIT/ML VIAL SQ SCH ×2 (09:02→13:23)
[2022-05-16] MEDS: HYDROcodone/APAP 7.5-325MG 1 EACH TAB PO PRN (09:02)
[2022-05-16 10:27] LABS: African American GFR (CKD) 5 (>60 ml/min/1.73 sqM); Anion Gap 12 mmol/L; Blood Urea Nitrogen 65 mg/dL (7-17); Calcium 8.8 mg/dL (8.4-10.2); Carbon Dioxide 26 mmol/L (22-30); Chloride 96 mmol/L (98-107); Glucose 191 mg/dL (74-99); Non-African American GFR(CKD) 5 (>60 ml/min/1.73 sqM); Potassium 4.7 mmol/L (3.5-5.1); Sodium 134 mmol/L (137-145)
--- NOTE | 2022-05-16 10:46 | CA ---
Transthoracic Echo Report Name: Sara Desouza Age: 56 Gender: F : 1965 Exam Date: 05/15/2022 13:50 Exam Location: [facility] Ht (in): 63 Wt (lb): 184 Ordering Physician: Louise Atkinson Attending/Referring Phys: [id number], Demetrio Senior Accounting Analyst Anne Hinton RDCS Procedure CPT: Indications: evaluate tricuspid valve Cardiac Hx: Technical Quality: Fair Contrast 1: Total Dose (mL): Contrast 2: Total Dose (mL): MEASUREMENTS (Male / Female) Normal Values 2D ECHO LV Diastolic Diameter PLAX 3.6 cm 4.2 - 5.9 / 3.9 - 5.3 cm LV Systolic Diameter PLAX 2.6 cm IVS Diastolic Thickness 1.6 cm 0.6 - 1.0 / 0.6 - 0.9 cm LVPW Diastolic Thickness 1.4 cm 0.6 - 1.0 / 0.6 - 0.9 cm LV Relative Wall Thickness 0.9 DOPPLER MV Peak Velocity 303.6 cm/s MV Peak Gradient 36.9 mmHg MV Mean Velocity 192.7 cm/s MV Mean Gradient 17.4 mmHg MV Velocity Time Integral 88.8 cm TR Peak Velocity 382.6 cm/s TR Peak Gradient 58.6 mmHg Right Ventricular Systolic Press 63.6 mmHg FINDINGS Left Ventricle Severely increased septal wall thickness. Moderately increased posterior wall thickness. Normal left ventricular systolic function with no obvious regional wall motion abnormalities. Left ventricular ejection fraction is estimated at 55-60 %. Right Ventricle Severe pulmonary hypertension. Right ventricular systolic pressure estimated at 64 mm hg. Mild right ventricular dilation Right Atrium Left Atrium Mitral Valve Prosthetic mitral valve. Gradient recorded across the prosthetic mitral valve (peak PG 37, mean PG 17 at a heart rate of 68bpm. Increased gradient compared to echo from 04/01 concerning for severe mitral stenosis however may be influenced by hemodynamics, heart rate and AV fistula. Consider TK if clinically indicated. Mild mitral regurgitation. Aortic Valve Tricuspid Valve Severe tricuspid regurgitation. Pulmonic Valve Pericardium No pericardial effusion. Aorta CONCLUSIONS Severely increased left ventricular wall thickness Left ventricular ejection fraction 55-60% Mild right ventricular dilation Prosthetic mitral valve with mean pressure gradient 17mmHg at a heart rate of 68bpm. Increased gradient compared to echo from 04/01 concerning for severe mitral stenosis however may be influenced by hemodynamics, heart rate and AV fistula. Consider TK if clinically indicated. Severe tricuspid regurgitation No pericardial effusion Previewed by: Dr. Alex Courtney DO (Electronically Signed) Final Date: 16 May 2022 10:45
--- NOTE | 2022-05-16 11:18 | P.PN ---
Subjective Progress Note Date: 05/16/22 HISTORY OF PRESENT ILLNESS: This is a 56 year old female with a past medical history significant for end- stage renal disease on hemodialysis, infective endocarditis status post mitral valve repair in March 2020, hypertension, hyperlipidemia, diabetes, liver disease, ascites requiring paracentesis, pulmonary hypertension, severe tricuspid regurgitation, chronic pancreatitis status post partial pancreatectomy and congestive heart failure. Patient follows in the office with Dr. Tesfaye. We have been asked to see the patient in consultation for chest pain. Patient examined at the bedside. Patient presented to the hospital secondary to increased fluid retention. She reports she has been compliant with hemodialysis but the fluid seems to be getting worse. She states 3L were removed at her last dialysis session. She reports a lot of abdominal fluid as well as lower extremity edema. She states this has been going on since . She denies any chest pain or pressure. Denies SOB. * EKG reveals second degree type I (wenckebach) heart block. Telemetry appears to be sinus mechanism. No atrial fibrillation noted. * Chest xray mild cardiomegaly with [id number] central venous congestion suspicious for CHF exacerbation * Laboratory data: WBC 2.2. Hemoglobin 8.9. Platelet count 100. Sodium 137. Potassium 3.3. BUN 51. Creatinine 6.66. Troponin 0.026. 0.035. 0.033. ProBNP 33,000 * Current home cardiac medications include aspirin 325 mg daily, Lasix 80 mg t wice a day, metoprolol titrate 50 mg 3 times a day, amlodipine 5 mg daily, clonidine 0.1 mg 3 times a day * Most recent echocardiogram obtained in March 2022 revealed ejection fraction 55-60%, left atrial enlargement, moderate pulmonary hypertension, moderate tricuspid regurgitation, mild aortic stenosis, mechanical valve in the mitral position with mild regurgitation. * Patient underwent TK in June 2020 revealing mildly impaired LV function with ejection fraction 40-45%, normally functioning bioprosthetic mitral valve and possible vegetation of the lateral wall of LV. The patient was t ransferred to [facility] at that time for further evaluation and was told that this was scar tissue and not recurrent endocarditis. * Cardiac catheterization history: 2018 revealing normal coronary arteries 05/15/2022 Patient examined this morning at the bedside. Patient denies chest pain or pressure. She denies shortness of breath. She underwent paracentesis yesterday with removal of 4 L of fluid. She is currently receiving hemodialysis with a goal of 4 L to be removed. She continues to be fluid overloaded. Vital signs are stable. 05/16/2022 Patient examined this morning at the bedside. Patient underwent hemodialysis yesterday and is scheduled for another hemodialysis treatment today. She denies chest pain or pressure. She denies shortness of breath. Vital signs are stable. PHYSICAL EXAM: VITAL SIGNS: Reviewed. GENERAL: Well-developed in no acute distress. HEENT: Head is normocephalic. Pupils are equal, round. Sclerae anicteric. Mucous membranes of the mouth are moist. Neck supple. No JVD or thyromegaly LUNGS: Respirations even and unlabored. Lungs essentially clear to auscultation bilaterally. HEART: Regular rate and rhythm. S1 and S2 heard. Systolic murmur noted. ABDOMEN: Abdominal ascites noted. EXTREMITIES: Normal range of motion. No clubbing or cyanosis. Peripheral pulses intact. 3-4+ bilateral lower extremity edema, extending into the thighs NEUROLOGIC: Awake and alert. Oriented x 3. ASSESSMENT: Chest pain, troponin negative x 3 Acute on chronic heart failure with preserved ejection fraction, most recent EF 55-60%, mostly right sided HF Anasarca End-stage renal disease on hemodialysis Pulmonary hypertension Severe tricuspid regurgitation Status post tissue mitral valve repair secondary to infective endocarditis, at [facility], 2019 Chronic liver disease Diabetes Hypertension Hyperlipidemia PLAN: Continue current cardiac medications Continue HD per nephrology. Patient still has significant fluid overload. Repeat echo reveals ejection fraction 55-60%, severe pulmonary hypertension, RVSP 64 mmHg, prosthetic mitral valve, peak gradient 37. Mean gradient 17. Inc reased gradient compared to echo from March 2022 may be secondary to increased flow from AV fistula versus severe mitral stenosis. Severe tricuspid regurgitation. Recommend right heart cath next week when patient is euvolemic. This was discussed in detail today with the patient. Further recommendations pending patient course Nurse practitioner note has been reviewed by physician. Signing provider agrees with the documented findings, assessment, and plan of care. Objective - Vital Signs Vital signs: Vital Signs Temp 97.6 F 05/16/22 06:59 Pulse 65 05/16/22 08:47 Resp 18 05/16/22 06:59 BP 149/67 05/16/22 06:59 Pulse Ox 100 01/06/23 07:20 FiO2 Intake & Output 05/15/22 05/16/22 05/16/22 18:59 06:59 18:59 Intake Total 660 100 Output Total 4800 Balance -4140 100 Weight 89.5 kg Intake: Oral 360 100 Hemodialysis 300 Output: Hemodialysis 4800 Other: Voiding Method Toilet # Voids 4 1 - Labs CBC & Chem 7: 05/13/22 09:51 05/16/22 09:50 Labs: Abnormal Lab Results - Last 24 Hours (Table) 05/15/22 05/15/22 05/16/22 Range/Units 17:26 19:55 09:50 Sodium 134 L (137-145) mmol/L Chloride 96 L (98-107) mmol/L BUN 65 H (7-17) mg/dL Creatinine 8.83 H* (0.52-1.04) mg/dL Glucose 191 H (74-99) mg/dL POC Glucose (mg/dL) 229 H 245 H (70-110) mg/dL
[2022-05-16 12:25] LABS: Glucose,Whole Blood 170 mg/dL (70-110)
[2022-05-16 13:25] VITALS: RESP 19; TEMP 97.7
--- NOTE | 2022-05-16 15:14 | P.PN ---
Subjective Patient is seen for follow-up for end-stage renal disease. She is currently seen on hemodialysis Patient is tolerating her treatment fairly well. UF goal of about 4 L . Objective - Vital Signs Vital signs: Vital Signs Temp 97.7 F 05/16/22 13:24 Pulse 62 05/16/22 13:24 Resp 19 05/16/22 13:24 BP 130/74 05/16/22 13:24 Pulse Ox 99 05/16/22 12:00 FiO2 Intake & Output 05/15/22 05/16/22 05/16/22 18:59 06:59 18:59 Intake Total 660 400 Output Total 4800 4000 Balance -4140 -3600 Weight 89.5 kg Intake: Oral 360 100 Hemodialysis 300 300 Output: Hemodialysis 4800 4000 Other: Voiding Method Toilet # Voids 4 1 4 - Exam Patient is awake, alert oriented 3 Not in any acute distress Ascites present Examination lower extremity shows 3+ edema bilaterally SHINGLES ROOFER exam grossly intact - Labs CBC & Chem 7: 05/13/22 09:51 05/16/22 09:50 Labs: Abnormal Lab Results - Last 24 Hours (Table) 05/15/22 05/15/22 05/16/22 Range/Units 17:26 19:55 09:50 Sodium 134 L (137-145) mmol/L Chloride 96 L (98-107) mmol/L BUN 65 H (7-17) mg/dL Creatinine 8.83 H* (0.52-1.04) mg/dL Glucose 191 H (74-99) mg/dL POC Glucose (mg/dL) 229 H 245 H (70-110) mg/dL 05/16/22 Range/Units 12:24 Sodium (137-145) mmol/L Chloride (98-107) mmol/L BUN (7-17) mg/dL Creatinine (0.52-1.04) mg/dL Glucose (74-99) mg/dL POC Glucose (mg/dL) 170 H (70-110) mg/dL Assessment and Plan Assessment: 1. End-stage renal disease on hemodialysis on a Thursday schedule 2. Volume overload 3. CK D mineral bone disorder 4. Recurrent ascites associated with underlying chronic liver disease and portal hypertension. Plan: Hemodialysis today and in am. Resume phosphate binders Salt and fluid restriction reinforced Being considered for right heart cath.
[2022-05-16 16:59] VITALS: BP 129/69; PULSE 71
--- NOTE | 2022-05-16 22:33 | PN ---
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 Discussed care with the patient. She is on oral medicines. After paracentesis, 4 L were taken off today. If breathing is improved, possible discharge home in the morning. OBJECTIVE: CARDIOVASCULAR: S1 and S2. ABDOMEN: Firm, but less distended than yesterday. LUNGS: Scattered rhonchi and wheeze. Sitting up in a chair. ASSESSMENT: 1. End-stage renal disease. 2. Autoimmune cirrhosis. 3. Pulmonary hypertension. 4. Chronic obstructive pulmonary disease. PLAN: Continue current treatment. Home oxygen at nighttime. Updraft treatments with [facility] t.i.d. Discharge home in the morning if she is breathing better. MMODL / IJN: [id number] /
== END 2022-05-16 17:41 | disposition home or self-care (01) | DRG 291 ==
LOC: EC 09:08 → 6NMEDSUR 11:59 → OBSVTOIN 11:59 → 3SCARD 12:05 → 6NMEDSUR 13:13
PROVIDERS: ADMIT Family Medicine; ATTEND Family Medicine
PROC: 0W9G30Z Drainage of Peritoneal Cavity with Drainage Device, Percutaneous Approach (ICD-10-PCS; principal; 2022-05-15)
PROC: 5A1D70Z Performance of Urinary Filtration, Intermittent, Less than 6 Hours Per Day (ICD-10-PCS; 2022-05-16)
DX: I13.2 Hypertensive heart and chronic kidney disease with heart failure and with stage 5 chronic kidney disease, or end stage renal disease (principal); I50.33 Acute on chronic diastolic (congestive) heart failure; N18.6 End stage renal disease; R18.8 Other ascites; K76.6 Portal hypertension; K86.1 Other chronic pancreatitis; N17.9 Acute kidney failure, unspecified; E11.22 Type 2 diabetes mellitus with diabetic chronic kidney disease; K74.60 Unspecified cirrhosis of liver; K72.90 Hepatic failure, unspecified without coma; I27.20 Pulmonary hypertension, unspecified; K76.0 Fatty (change of) liver, not elsewhere classified; J44.9 Chronic obstructive pulmonary disease, unspecified; I25.10 Atherosclerotic heart disease of native coronary artery without angina pectoris; M89.8X9 Other specified disorders of bone, unspecified site; E78.5 Hyperlipidemia, unspecified; Z91.15 Patient's noncompliance with renal dialysis; K75.4 Autoimmune hepatitis; Z99.2 Dependence on renal dialysis; E78.1 Pure hyperglyceridemia; I44.1 Atrioventricular block, second degree; I87.309 Chronic venous hypertension (idiopathic) without complications of unspecified lower extremity; G51.0 Bell's palsy; I08.1 Rheumatic disorders of both mitral and tricuspid valves; D64.9 Anemia, unspecified; G25.81 Restless legs syndrome; Z87.01 Personal history of pneumonia (recurrent); Z79.82 Long term (current) use of aspirin; Z79.899 Other long term (current) drug therapy; Z80.8 Family history of malignant neoplasm of other organs or systems; Z88.5 Allergy status to narcotic agent; Z88.8 Allergy status to other drugs, medicaments and biological substances; Z90.411 Acquired partial absence of pancreas; Z95.3 Presence of xenogenic heart valve; Z98.42 Cataract extraction status, left eye; Z98.41 Cataract extraction status, right eye; Z96.1 Presence of intraocular lens; Z86.14 Personal history of Methicillin resistant Staphylococcus aureus infection; Z87.440 Personal history of urinary (tract) infections; Z87.19 Personal history of other diseases of the digestive system; Z88.1 Allergy status to other antibiotic agents; Z91.041 Radiographic dye allergy status; Z79.4 Long term (current) use of insulin
CPT/HCPCS: 36415; 49083; 71046; 76705; 80048; 80053; 80061; 83735; 83880; 84100; 84484; 85025; 85610; 85730; 90935; 93005; 93308; 94760; 99285

== ENCOUNTER 2022-06-13 16:14 | Emergency (ER) | payer MEDICARE, OTHER ==
[2022-06-13] MEDS ORDERED: ONDANSETRON 4 MG/2 ML VIAL IM STA (16:35)
[2022-06-13] MEDS ORDERED: ONDANSETRON ODT 4 MG TAB PO STA (16:36)
[2022-06-13 16:57] LABS: Anisocytosis Slight; Basophils % (A) 0 %; Eosinophils % (A) 1 %; HCT 32.2 % (34.0-46.0); HGB 10.3 gm/dL (11.4-16.0); Lymphocytes # (A) 0.4 k/uL (1.0-4.8); Lymphocytes % (A) 14 %; MCH 29.2 pg (25.0-35.0); MCHC 31.9 g/dL (31.0-37.0); MCV 91.6 fL (80.0-100.0); Mean Platelet Volume 7.8; Monocytes # (A) 0.2 k/uL (0-1.0); Monocytes % (A) 7 %; Neutrophils # (A) 2.1 k/uL (1.3-7.7); Neutrophils % (A) 75 %; Platelet Count 105 k/uL (150-450); RBC 3.52 m/uL (3.80-5.40); RDW 16.6 % (11.5-15.5); WBC 2.8 k/uL (3.8-10.6)
--- NOTE | 2022-06-13 17:22 | ED ---
General Adult HPI - General Chief complaint: Recheck/Abnormal Lab/Rx Stated complaint: bulge on neck Time Seen by Provider: 06/13/22 16:19 Source: patient Mode of arrival: ambulatory Limitations: no limitations - History of Present Illness Initial comments: Patient is a 57-year-old female who presents to the emergency department with a chief complaint of lump on neck. Patient noticed a small lump on the left side of her neck this morning. It does not hurt. She has not noticed any other lumps. No issues with swallowing. She denies fever, chills, headache, upper respiratory symptoms, chest pain, shortness of breath. Patient does admit to some nausea which is not unusual for her as she is a hemodialysis patient. No vomiting, no abdominal pain. - Related Data Home Medications Medication Instructions Recorded Confirmed HYDROcodone/APAP 7.5-325MG [[place] 1 tab PO TID PRN 11/08/19 06/11/22 7.5-325] traMADol HCL [Ultram] 50 mg PO BID PRN 05/13/20 06/11/22 Lidocaine-Prilocaine Cream [Emla 1 applic TOPICAL TUTHSA PRN 06/18/21 06/11/22 Cream 2.5%/2.5%] Ondansetron [Zofran] 4 mg PO TID PRN 06/18/21 06/11/22 rOPINIRole HCL [Requip] 1 mg PO BID 06/18/21 06/11/22 Gabapentin [Neurontin] 100 mg PO TID 07/08/21 06/11/22 diazePAM [Valium] 5 mg PO HS 08/08/21 06/11/22 Furosemide [Lasix] 80 mg PO BID 09/26/21 06/11/22 Metoprolol Tartrate [Lopressor] 50 mg PO TID 12/13/21 06/11/22 Calcium Carbonate [Tums] 500 mg PO TID PRN 01/29/22 06/11/22 Melatonin 12 mg PO HS PRN 01/29/22 06/11/22 Midodrine HCl [ProAmatine] 10 mg PO TUTHSA PRN 01/29/22 06/11/22 Sevelamer [Renvela] 3,200 mg PO TID-W/MEALS 01/29/22 06/11/22 Sevelamer [Renvela] 800 - 1,600 mg PO DAILY PRN 01/29/22 06/11/22 INSULIN ASPART (NovoLOG) [NovoLOG 15 unit SQ TID-W/MEALS 03/27/22 06/11/22 (formulary)] Insulin Glargine,Hum.rec.anlog 45 units SQ HS 03/27/22 06/11/22 [Lantus Solostar Pen] cloNIDine HCL [Catapres] 0.1 mg PO TID 03/27/22 06/11/22 Sodium Zirconium Cyclosilicate 10 gm PO SUMOWEFR 05/13/22 06/11/22 [Lokelma] Ipratropium-Albuterol Nebulize 3 ml INHALATION DAILY 05/29/22 06/11/22 [Duoneb 0.5 mg-3 mg/3 ml Soln] Previous Rx's Medication Instructions Recorded Aspirin 325 mg PO DAILY 90 Days #90 tab 12/01/21 Sildenafil [Revatio] 20 mg PO TID tab 03/28/22 Pantoprazole [Protonix] 40 mg PO HS 90 Days #90 tab 05/16/22 Ondansetron Odt [Zofran Odt] 4 mg PO Q8HR PRN #12 tab 06/13/22 Allergies Allergy/AdvReac Type Severity Reaction Status Date / Time hydromorphone [From Dilaudid] Allergy Swelling Verified 06/13/22 16:18 Anesthetics - Amide Type - AdvReac cardiac Verified 06/13/22 16:18 Select A arrest Anesthetics - Andree Type- AdvReac cardiac Verified 06/13/22 16:18 Parabens arrest ciprofloxacin [From Cipro] AdvReac AFFECTED Verified 06/13/22 16:18 EYESIGHT ciprofloxacin HCl AdvReac AFFECTED Verified 06/13/22 16:18 [From Cipro] EYESIGHT Iodinated Contrast Media AdvReac RENAL Verified 06/13/22 16:18 FAILURE niacin AdvReac Dyspnea Verified 06/13/22 16:18 Review of Systems ROS Statement: Those systems with pertinent positive or pertinent negative responses have been documented in the HPI. ROS Other: All systems not noted in ROS Statement are negative. 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 History of Any Multi-Drug Resistant Organisms: MRSA Date of last positivie culture/infection: 08-02-20 MDRO Source:: Blood Past Surgical History: Cardiac Valve Replacement, Orthopedic Surgery, Uterine Ablation Additional Past Surgical History / Comment(s): Colonoscopy with polypectomy/biopsy, pancreatic resection at [facility] 2009, bone marrow biopsies X2, dialysis chest port X3 with removals, left arm shunt placement for dialysis and a revision done with shunt, left forearm vein revision, liver biopsy, mitral valve repacement 2019 at of ,. paracentesis procedures, bilateral cataract removals/lens implants, then laser eye surgery to remove film on lenses, dental surgery. Past Anesthesia/Blood Transfusion Reactions: No Reported Reaction Additional Past Anesthesia/Blood Transfusion Reaction / Comment(s): Pt allergic to Amide type anesthesia/andree type parabins. Pt has received blood transfusions without reaction. Past Psychological History: Anxiety Smoking Status: Never smoker Past Alcohol Use History: None Reported Past Drug Use History: None Reported - Past Family History Brother(s) Family Medical History: No Reported History Mother Family Medical History: Cancer, Congestive Heart Failure (CHF), Diabetes Mellitus Additional Family Medical History / Comment(s): Throat cancer. Father Family Medical History: Hypertension Additional Family Medical History / Comment(s): Alcoholism. General Exam Limitations: no limitations General appearance: alert, in no apparent distress Eye exam: Present: normal appearance, PERRL, EOMI. Absent: scleral icterus, conjunctival injection, periorbital swelling Neck exam: Present: normal inspection (1 cm nodule in left neck, anterior cervical lymphadenopathy. Mobile, soft, nontender). Absent: tenderness, meningismus Respiratory exam: Present: normal lung sounds bilaterally. Absent: respiratory distress, wheezes, rales, rhonchi, stridor Cardiovascular Exam: Present: regular rate, normal heart sounds. Absent: normal rhythm (She has known atrial fibrillation), systolic murmur, diastolic murmur, rubs, gallop, clicks, JVD, S3, S4 Neurological exam: Present: alert, oriented X3, CN II-XII intact Psychiatric exam: Present: normal affect, normal mood Skin exam: Present: warm, dry, intact, normal color. Absent: rash Course Vital Signs 06/13/22 16:15 Temperature 97.9 F Pulse Rate 87 Respiratory 20 Rate Blood Pressure 159/104 O2 Sat by Pulse 96 Oximetry Medical Decision Making - Medical Decision Making Was pt. sent in by a medical professional or institution (JASON Pineda, ACOUSTICAL TILE CARPENTERS SUPERVISOR, urgent care, hospital, or usp...) When possible be specific @ -[No] Did you speak to anyone other than the patient for history (EMS, parent, family, police, friend...)? What history was obtained from this source @ -[No] Did you review nursing and triage notes (agree or disagree)? Why? @ -[I reviewed and agree with nursing and triage notes] Were old charts reviewed (outside hosp., previous admission, EMS record, old EKG, old radiological studies, urgent care reports/EKG's, usp records)? Report findings @ -[No old charts were reviewed] Differential Diagnosis (chest pain, altered mental status, abdominal pain women, abdominal pain men, vaginal bleeding, weakness, fever, dyspnea, syncope, headache, dizziness, GI bleed, back pain, seizure, CVA, palpatations, mental health)? @ -[not applicable] EKG interpreted by me (3pts min.). @ -[As above] X-rays interpreted by me (1pt min.). @ -[None done] CT interpreted by me (1pt min.). @ -[None done] U/S interpreted by me (1pt. min.). @ -[None done] What testing was considered but not performed or refused? (CT, X-rays, U/S, labs)? Why? @ -[None] What meds were considered but not given or refused? Why? @ -[None] Did you discuss the management of the patient with other professionals (professionals i.e. DrPiedad, PA, ACOUSTICAL TI[employer]PENT[employer] SUPERVISOR, lab, RT, psych nurse, social media job titles, laborer ammunition assembly, teacher, safety officer, field nurse case manager)? Give summary @ -[No] Was smoking cessation discussed for >3mins.? @ -[No] Was critical care preformed (if so, how long)? @ -[No] Were there social determinants of health that impacted care today? How? (Homelessness, low income, unemployed, alcoholism, drug addiction, transportation, low edu. Level, literacy, decrease access to med. care, skilled nursing, rehab)? @ -[No] Was there de-escalation of care discussed even if they declined (Discuss DNR or withdrawal of care, Hospice)? DNR status @ -[No] What co-morbidities impacted this encounter? (DM, HTN, Smoking, COPD, CAD, Cancer, CVA, ARF, Chemo, Hep., AIDS, mental health diagnosis, sleep apnea, morbid obesity)? @ End stage renal disease, hypertension, hyperlipidemia, diabetes mellitus Was patient admitted / discharged? Hospital course, mention meds given and route, prescriptions, significant lab abnormalities, going to OR and other pertinent info. @ -Discharged. Patient has what appears to be unilateral anterior cervical lymph adenopathy. It is nontender, mobile, soft. CBC significant for pancytopenia which is chronic in nature. Discussed results with patient. She has appointment with Dr. Magana this Thursday. Patient to watch for any growing of node or other changes Will send patient home with Zofran for nausea. Undiagnosed new problem with uncertain prognosis? @ -[No] Drug Therapy requiring intensive monitoring for toxicity (Heparin, Nitro, Insulin, Cardizem)? @ -[No] Were any procedures done? @ -[No] Diagnosis/symptom? @ lump in neck Acute, or Chronic, or Acute on Chronic? @ -acute Uncomplicated (without systemic symptoms) or Complicated (systemic symptoms)? @ -uncomplicated Side effects of treatment? @ -[No] Exacerbation, Progression, or Severe Exacerbation? @ -[No] Poses a threat to life or bodily function? How? (Chest pain, [place], [place], pneumonia, PE, COPD, DKA, ARF, appy, cholecystitis, CVA, Diverticulitis, Homicidal, Suicidal, threat to staff... and all critical care pts) @ -[No] Dr. Domingo is my attending - Lab Data Result diagrams: 06/13/22 16:48 Lab Results 06/13/22 06/13/22 Range/Units 16:48 16:48 WBC 2.8 L (3.8-10.6) k/uL RBC 3.52 L (3.80-5.40) m/uL Hgb 10.3 L (11.4-16.0) gm/dL Hct 32.2 L (34.0-46.0) % MCV 91.6 (80.0-100.0) fL MCH 29.2 (25.0-35.0) pg MCHC 31.9 (31.0-37.0) g/dL RDW 16.6 H (11.5-15.5) % Plt Count 105 L (150-450) k/uL MPV 7.8 Neutrophils % 75 % Lymphocytes % 14 % Monocytes % 7 % Eosinophils % 1 % Basophils % 0 % Neutrophils # 2.1 (1.3-7.7) k/uL Lymphocytes # 0.4 L (1.0-4.8) k/uL Monocytes # 0.2 (0-1.0) k/uL Eosinophils # 0.0 (0-0.7) k/uL Basophils # 0.0 (0-0.2) k/uL Anisocytosis Slight Influenza Type A (PCR) Not Detected (Not Detectd) Influenza Type B (PCR) Not Detected (Not Detectd) RSV (PCR) Not Detected (Not Detectd) SARS-CoV-2 (PCR) Not Detected (Not Detectd) Disposition Clinical Impression: Lump in neck Disposition: HOME SELF-CARE Condition: Good Instructions (If sedation given, give patient instructions): Lymphadenopathy (ED) Additional Instructions: Follow-up with Dr. Bragg on Thursday as planned. Return to the emergency department experience new, concerning, or worsening symptoms. Prescriptions: Ondansetron Odt [Zofran Odt] 4 mg PO Q8HR PRN #12 tab PRN Reason: Nausea Is patient prescribed a controlled substance at d/c from ED?: No Referrals: David Bragg MD [Primary Care Provider] - 1-2 days
[2022-06-13 18:40] VITALS: BP 152/81; PULSE 65; RESP 18; TEMP 98.6
== END 2022-06-13 18:36 | disposition home or self-care (01) ==
LOC: EC 16:14
DX: R22.1 Localized swelling, mass and lump, neck (principal); I25.10 Atherosclerotic heart disease of native coronary artery without angina pectoris; I13.2 Hypertensive heart and chronic kidney disease with heart failure and with stage 5 chronic kidney disease, or end stage renal disease; I50.9 Heart failure, unspecified; N18.6 End stage renal disease; E11.22 Type 2 diabetes mellitus with diabetic chronic kidney disease; F41.9 Anxiety disorder, unspecified; Z88.8 Allergy status to other drugs, medicaments and biological substances; Z88.4 Allergy status to anesthetic agent; Z88.1 Allergy status to other antibiotic agents; Z91.048 Other nonmedicinal substance allergy status; Z79.4 Long term (current) use of insulin; Z79.899 Other long term (current) drug therapy; Z20.822 Contact with and (suspected) exposure to COVID-19
CPT/HCPCS: 36415; 85025; 87636; 99283

== ENCOUNTER 2022-08-26 07:08 | Emergency (ER) | payer MEDICARE, OTHER ==
--- NOTE | 2022-08-26 07:52 | ED ---
URI HPI - General Chief Complaint: Upper Respiratory Infection Stated Complaint: fever, not feeling well Time Seen by Provider: 08/26/22 07:18 Source: patient, RN notes reviewed Mode of arrival: wheelchair Limitations: no limitations - History of Present Illness Initial Comments: 57-year-old female presents emergency Department with chief complaint of cough and cold like symptoms. Patient states that she has a cough and congestion last 4 days. Patient states she went to dialysis today and they told her to come get checked because she had a borderline fever. Patient's current temp is 99 7 patient states that she's not had recorded temperature at home. She has nonproductive cough denies showing short of breath. Denies any increasing leg swelling denies any ear pain no significant sore throat. - Related Data Home Medications Medication Instructions Recorded Confirmed HYDROcodone/APAP 7.5-325MG [[place] 1 tab PO TID PRN 11/08/19 07/08/22 7.5-325] traMADol HCL [Ultram] 50 mg PO BID PRN 05/13/20 07/08/22 Lidocaine-Prilocaine Cream [Emla 1 applic TOPICAL TUTHSA PRN 06/18/21 07/08/22 Cream 2.5%/2.5%] Ondansetron [Zofran] 4 mg PO TID PRN 06/18/21 07/08/22 rOPINIRole HCL [Requip] 1 mg PO BID 06/18/21 07/08/22 Gabapentin [Neurontin] 100 mg PO TID 07/08/21 07/08/22 diazePAM [Valium] 5 mg PO BID PRN 08/08/21 07/08/22 Furosemide [Lasix] 80 mg PO BID 09/26/21 07/08/22 Metoprolol Tartrate [Lopressor] 50 mg PO BID 12/13/21 07/08/22 Calcium Carbonate [Tums] 500 mg PO TID PRN 01/29/22 07/08/22 Melatonin 12 mg PO HS PRN 01/29/22 07/08/22 Midodrine HCl [ProAmatine] 10 mg PO TUTHSA PRN 01/29/22 07/08/22 Sevelamer [Renvela] 1,600 mg PO DAILY PRN 01/29/22 07/08/22 Sevelamer [Renvela] 4,000 mg PO TID-W/MEALS 01/29/22 07/08/22 INSULIN ASPART (NovoLOG) [NovoLOG 15 unit SQ TID-W/MEALS 03/27/22 07/08/22 (formulary)] Insulin Glargine,Hum.rec.anlog 45 units SQ HS 03/27/22 07/08/22 [Lantus Solostar Pen] cloNIDine HCL [Catapres] 0.1 mg PO BID 03/27/22 07/08/22 Sodium Zirconium Cyclosilicate 10 gm PO SUMOWEFR 05/13/22 07/08/22 [Lokelma] Ipratropium-Albuterol Nebulize 3 ml INHALATION RT-QID PRN 05/29/22 07/08/22 [Duoneb 0.5 mg-3 mg/3 ml Soln] Albuterol Sulfate [Accuneb] 3 ml INHALATION RT-QID PRN 07/08/22 07/08/22 Ondansetron Odt [Zofran Odt] 4 mg PO Q8HR PRN 07/08/22 07/08/22 amLODIPine [Norvasc] 5 mg PO DAILY 07/08/22 07/08/22 Previous Rx's Medication Instructions Recorded Sildenafil [Revatio] 20 mg PO TID tab 03/28/22 Pantoprazole [Protonix] 40 mg PO HS 90 Days #90 tab 05/16/22 Sodium Zirconium Cyclosilicate 10 gm PO DAILY 30 Days #30 packet 07/11/22 [Lokelma] Azithromycin [Zithromax Z Pack] 0 tab PO DIRECTED #6 tab 08/26/22 Allergies Allergy/AdvReac Type Severity Reaction Status Date / Time hydromorphone [From Dilaudid] Allergy Swelling Verified 08/26/22 07:12 Anesthetics - Amide Type - AdvReac cardiac Verified 08/26/22 07:12 Select A arrest Anesthetics - Andree Type- AdvReac cardiac Verified 08/26/22 07:12 Parabens arrest ciprofloxacin [From Cipro] AdvReac AFFECTED Verified 08/26/22 07:12 EYESIGHT ciprofloxacin HCl AdvReac AFFECTED Verified 08/26/22 07:12 [From Cipro] EYESIGHT Iodinated Contrast Media AdvReac RENAL Verified 08/26/22 07:12 FAILURE niacin AdvReac Dyspnea Verified 08/26/22 07:12 Review of Systems ROS Statement: Those systems with pertinent positive or pertinent negative responses have been documented in the HPI. ROS Other: All systems not noted in ROS Statement are negative. 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 History of Any Multi-Drug Resistant Organisms: MRSA Date of last positivie culture/infection: 08-02-20 MDRO Source:: Blood Past Surgical History: Cardiac Valve Replacement, Orthopedic Surgery, Uterine Ablation Additional Past Surgical History / Comment(s): Colonoscopy, pancreatic resection at [facility] 2009, bone marrow biopsies X2, dialysis chest port X3 with removals, left arm shunt placement for dialysis and a revision done with shunt, left forearm vein revision, liver biopsy, mitral valve replacement 2019 at [facility],. paracentesis procedures, bilateral cataract removals/lens implants, then laser eye surgery to remove film on lenses, dental surgery. Past Anesthesia/Blood Transfusion Reactions: Previous Problems w/ Anesthesia Additional Past Anesthesia/Blood Transfusion Reaction / Comment(s): Pt allergic to Amide type anesthesia/andree type parabins. Pt has received blood transfusions without reaction. Past Psychological History: Anxiety Smoking Status: Never smoker Past Alcohol Use History: None Reported Past Drug Use History: None Reported - Past Family History Brother(s) Family Medical History: No Reported History Mother Family Medical History: Cancer, Congestive Heart Failure (CHF), Diabetes Mellitus Additional Family Medical History / Comment(s): Throat cancer. Father Family Medical History: Hypertension Additional Family Medical History / Comment(s): Alcoholism. General Exam Limitations: no limitations General appearance: alert, in no apparent distress Head exam: Present: atraumatic, normocephalic, normal inspection Eye exam: Present: normal appearance, PERRL, EOMI. Absent: scleral icterus, conjunctival injection, periorbital swelling ENT exam: Present: normal exam, normal oropharynx, mucous membranes moist Neck exam: Present: normal inspection, full ROM. Absent: tenderness, meningismus, lymphadenopathy Respiratory exam: Present: normal lung sounds bilaterally. Absent: respiratory distress, wheezes, rales, rhonchi, stridor Cardiovascular Exam: Present: regular rate, normal rhythm, normal heart sounds. Absent: systolic murmur, diastolic murmur, rubs, gallop, clicks GI/Abdominal exam: Present: soft, normal bowel sounds. Absent: distended, tenderness, guarding, rebound, rigid Course Vital Signs 08/26/22 08/26/22 08/26/22 07:12 07:59 08:00 Temperature 99.8 F H Pulse Rate 79 86 Respiratory 16 18 18 Rate Blood Pressure 110/66 133/78 O2 Sat by Pulse 95 95 Oximetry Medical Decision Making - Medical Decision Making Was pt. sent in by a medical professional or institution (, PA, BOOKKEEPER, urgent care, hospital, or halfway...) When possible be specific @ -No Did you speak to anyone other than the patient for history (EMS, parent, family, police, friend...)? What history was obtained from this source @ -No Did you review nursing and triage notes (agree or disagree)? Why? @ -I reviewed and agree with nursing and triage notes Were old charts reviewed (outside hosp., previous admission, EMS record, old EKG, old radiological studies, urgent care reports/EKG's, halfway records)? Report findings @ -No old charts were reviewed Differential Diagnosis (chest pain, altered mental status, abdominal pain women, abdominal pain men, vaginal bleeding, weakness, fever, dyspnea, syncope, headache, dizziness, GI bleed, back pain, seizure, CVA, palpatations, mental health, musculoskeletal)? @ -Differential Dyspnea: Coronary syndrome, arrhythmia, tamponade, asthma, COPD, pulmonary embolism, pneumonia, pneumothorax, pulmonary effusion, anaphylaxis, diabetic ketoacidosis, flailed chest, pulmonary contusion, diaphragmatic rupture, anemia, neuromuscular, this is not meant to be an all-inclusive list. ble EKG interpreted by me (3pts min.). @ -None X-rays interpreted by me (1pt min.). @ -Chest x-ray shows possible early infiltrate right lower CT interpreted by me (1pt min.). @ -None done U/S interpreted by me (1pt. min.). @ -None done What testing was considered but not performed or refused? (CT, X-rays, U/S, labs)? Why? @ -None What meds were considered but not given or refused? Why? @ -None Did you discuss the management of the patient with other professionals (professionals i.e. , PA, BOOKKEEPER, lab, RT, psych nurse, social science analyst, route supervisor, teacher, home lending officer, case folder)? Give summary @ -No Was smoking cessation discussed for >3mins.? @ -No Was critical care preformed (if so, how long)? @ -No Were there social determinants of health that impacted care today? How? (Homelessness, low income, unemployed, alcoholism, drug addiction, transportation, low edu. Level, literacy, decrease access to med. care, senior care, rehab)? @ -No Was there de-escalation of care discussed even if they declined (Discuss DNR or withdrawal of care, Hospice)? DNR status @ -No What co-morbidities impacted this encounter? (DM, HTN, Smoking, COPD, CAD, Cancer, CVA, ARF, Chemo, Hep., AIDS, mental health diagnosis, sleep apnea, morbid obesity)? @ -Chronic renal failure on dialysis Was patient admitted / discharged? Hospital course, mention meds given and route, prescriptions, significant lab abnormalities, going to OR and other pertinent info. @ -Discharge patient x-ray shows possible early infiltrate. Patient does have 9.97 temp patient has a productive cough with a negative covid, RSV and influenza. Vitals are otherwise stable. Patient does not have any evidence of fluid overload. Patient was given Rocephin, discharge on azithromycin she will go for dialysis. Return parameters discussed patient was plan. Undiagnosed new problem with uncertain prognosis? @ -No Drug Therapy requiring intensive monitoring for toxicity (Heparin, Nitro, Insulin, Cardizem)? @ -No Were any procedures done? @ -No Diagnosis/symptom? @ -Pneumonia Acute, or Chronic, or Acute on Chronic? @ -Acute Uncomplicated (without systemic symptoms) or Complicated (systemic symptoms)? @ -Uncomplicated Side effects of treatment? @ -No Exacerbation, Progression, or Severe Exacerbation? @ -No Poses a threat to life or bodily function? How? (Chest pain, [place], [place], pneumonia, PE, COPD, DKA, ARF, appy, cholecystitis, CVA, Diverticulitis, Homicidal, Suic idal, threat to staff... and all critical care pts) @ -No - Lab Data Lab Results 08/26/22 Range/Units 07:59 Influenza Type A (PCR) Not Detected (Not Detectd) Influenza Type B (PCR) Not Detected (Not Detectd) RSV (PCR) Not Detected (Not Detectd) SARS-CoV-2 (PCR) Not Detected (Not Detectd) Disposition Clinical Impression: Pneumonia Disposition: HOME SELF-CARE Condition: Stable Instructions (If sedation given, give patient instructions): Pneumonia (ED) Additional Instructions: Please return to the Emergency Department if symptoms worsen or any other concerns. Prescriptions: Azithromycin [Zithromax Z Pack] 0 tab PO DIRECTED #6 tab Is patient prescribed a controlled substance at d/c from ED?: No Referrals: David Bragg MD [Primary Care Provider] - 1-2 days Time of Disposition: 09:16
--- NOTE | 2022-08-26 08:22 | XR ---
EXAMINATION TYPE: XR chest 2V DATE OF EXAM: 08/26/2022 COMPARISON: 05/13/2022 HISTORY: Cough TECHNIQUE: Frontal and lateral views of the chest are obtained. FINDINGS: There are multiple median sternotomy wires, a cardiac valve prosthesis, and a vascular stent within t he left infraclavicular region. The heart size is normal. There are patchy airspace opacities at the bilateral lung bases, right grea ter than left. There is no significant pleural effusion. There is no pneumothorax. The cardiomediasti nal silhouette and pulmonary vasculature are within normal limits. IMPRESSION: Bibasilar patchy airspace opacities. This finding is concerning for multifocal pneumonia. Atelectasis is not entirely excluded. Recommend follow-up radiographs in 6-8 weeks to ensure complete resolution .
[2022-08-26] MEDS ORDERED: cefTRIAXone 1,000 MG VIAL (IM USE) IM STA (09:15)
[2022-08-26 09:53] VITALS: BP 118/73; PULSE 61; RESP 20; TEMP 99.7
== END 2022-08-26 09:53 | disposition home or self-care (01) ==
LOC: EC 07:08
DX: J18.9 Pneumonia, unspecified organism (principal); I50.9 Heart failure, unspecified; I13.2 Hypertensive heart and chronic kidney disease with heart failure and with stage 5 chronic kidney disease, or end stage renal disease; I25.10 Atherosclerotic heart disease of native coronary artery without angina pectoris; E11.22 Type 2 diabetes mellitus with diabetic chronic kidney disease; E11.36 Type 2 diabetes mellitus with diabetic cataract; E78.5 Hyperlipidemia, unspecified; F41.9 Anxiety disorder, unspecified; J44.0 Chronic obstructive pulmonary disease with (acute) lower respiratory infection; N18.6 End stage renal disease; Z79.4 Long term (current) use of insulin; Z79.899 Other long term (current) drug therapy; Z88.1 Allergy status to other antibiotic agents; Z88.4 Allergy status to anesthetic agent; Z88.5 Allergy status to narcotic agent; Z88.8 Allergy status to other drugs, medicaments and biological substances
CPT/HCPCS: 87636; 71046; 99283; 96372; J0696